=== PATIENT | male | born 1970 | race Caucasian/White ===

== ENCOUNTER 2023-04-27 13:25 | Emergency (ER) | payer MEDICAID, SELFPAY ==
[2023-04-27 13:30] VITALS: BP 138/97; BP 139/91; PULSE 72; RESP 14; TEMP 36.9; O2SAT 96; BMI 32.3
--- NOTE | 2023-04-27 13:53 | ED_ITS ---
HPI - General Adult General Chief complaint: Extremity Injury, Lower Stated complaint: ANKLE INJURY Time Seen by Provider: 04/27/23 13:52 Source: patient Mode of arrival: ambulance Limitations: no limitations History of Present Illness HPI narrative: Should persist emergency department complaining of left foot pain. Patient states he noted increased pain and swelling to his left heel. He walks a lot. He is from [place] and took the train seems to be transient to [place]. He has not taking anything for pain. He denies any injury. He states is not sure if he has a foreign body stuck there. Sometimes he steps on things. He states one time he had cellulitis and he just wanted to make sure that this was not it. Since it had some chills and denies any fever. He denies any pain or cramping. He denies any chest pain, shortness of breath. He denies any nausea, vomiting, diarrhea or constipation. He states he has chronic issues with his [place] where he has poor absorption so he does not take any medications because they don't absorbed well. Related Data Home Medications Medication Instructions Recorded Confirmed clonidine HCl 0.2 mg tablet 0.2 mg PO DAILY 04/27/23 04/27/23 losartan 25 mg tablet 25 mg PO DAILY 04/27/23 04/27/23 metoprolol tartrate 25 mg tablet 25 mg PO DAILY 04/27/23 04/27/23 Allergies Allergy/AdvReac Type Severity Reaction Status Date / Time erythromycin base AdvReac Intermediate Abdominal Verified 04/27/23 13:40 [From Erythrocin] Pain polyethylene glycol AdvReac Intermediate Abdominal Verified 04/27/23 13:40 Pain Review of Systems ROS Status of ROS 10 or more systems reviewed and unremarkable except as noted in history and below [facility] Medical History (Updated 04/27/23 @ 15:19 by Theresa Umanzor MD) Exam Narrative Exam Narrative: Nurses notes and vital signs reviewed and patient is not hypoxic. General: Nontoxic, and in no apparent distress. Skin: Warm, dry, no pallor noted. No Rash Head: Normocephalic, atraumatic. Neck: Supple, non-tender. Eye: Pupils are equal, round and EOMI. No scleral icterus. Ears, Nose, Mouth, and Throat: TM clear, no posterior oropharynx erythema or nasal mucosal hypertrophy, uvula is mid-line Oral mucosa is moist Cardiovascular: Regular Rate and Rhythm without murmur, gallop or rub. Respiratory: No accessory muscle use or respiratory distress. Lungs are clear to auscultation, no wheezing, rales or rhonchi Chest Wall: no tenderness Back: No midline thoracic or lumbar vertebral tenderness. No CVA tenderness Musculoskeletal: Small erythema and edema noted to the left posterior heel. It is localized, there is no fluctuance. No ecchymosis no proximal streaking. No signs of trauma, or infection. DP +2, TP +2, capillary refill is brisk. normal ROM, no calf or popliteal tenderness, no lower extremity edema/swelling GI: Abdomen is soft, non-distended. Normal bowel sounds. No tenderness to palpation. No rebound, guarding, or rigidity noted. Neurological: A&O x4. No cranial nerve dysfunction observed. No truncal ataxia. Moves all extremities. Sensation intact. Psychiatric: Cooperative and interactive. Constitutional Vital Signs, click to edit/add: Last Vital Signs Temp 98.5 F 04/27/23 13:30 Pulse 72 04/27/23 13:30 Resp 14 04/27/23 13:30 BP 138/97 H 04/27/23 13:30 Pulse Ox 96 04/27/23 13:30 O2 Del Method Room Air 04/27/23 13:30 Course Vital Signs Vital signs: Vital Signs Temperature 98.5 F 04/27/23 13:30 Pulse Rate 72 04/27/23 13:30 Respiratory Rate 14 04/27/23 13:30 Blood Pressure 138/97 H 04/27/23 13:30 Pulse Oximetry 96 04/27/23 13:30 Oxygen Delivery Method Room Air 04/27/23 13:30 Temperature 98.5 F 04/27/23 13:30 Pulse Rate 72 04/27/23 13:30 Respiratory Rate 14 04/27/23 13:30 Blood Pressure 138/97 H 04/27/23 13:30 Pulse Oximetry 96 04/27/23 13:30 Oxygen Delivery Method Room Air 04/27/23 13:30 Medical Decision Making MDM Narrative Medical decision making narrative: Patient had a foot x-ray done which is unremarkable. Labs were unremarkable. Patient's history and physical is consistent with a bursitis. All results discussed with patient. Patient is given Solu-Medrol IM and he will take Tylenol as needed for pain. Patient was offered a meal. No additional indication for emergent studies at this time. I answered all questions. Discussed discharge instructions including standard anticipatory guidance and what should prompt a return to the emergency department, including if they get worse are not getting better or develops any new or concerning symptoms. I've given them specific time frame in which to follow-up, and who to follow-up with. The patient demonstrates understanding. Patient is nontoxic and stable for discharge with outpatient follow-up. This note was created with the assistance of a speech recognition program. Although the intention is to generate documents that actually reflects the content of the visit, no guarantees can be provided that every mistake has been identified and corrected by editing. Lab Data Labs: Lab Results 04/27/23 Range/Units 14:20 WBC 3.4 L (4.0-11.0) 10^3/uL RBC 4.72 (4.70-6.10) 10^6/uL Hgb 13.9 L (14.0-18.0) g/dL Hct 40.9 L (42.0-54.0) % MCV 86.7 (80.0-94.0) fL MCH 29.4 (25.9-34.0) pg MCHC 34.0 (29.9-35.2) g/dL RDW 12.4 (11.0-15.0) % Plt Count 148 L (150-450) 10^3/uL MPV 10.5 (9.5-13.5) fL Neut % (Auto) 59.6 (43.0-75.0) % Lymph % (Auto) 25.8 (20.5-60.0) % [place] % (Auto) 11.6 (1.7-12.0) % Eos % (Auto) 2.4 (0.9-7.0) % Baso % (Auto) 0.6 (0.2-2.0) % Neut # (Auto) 2.0 (1.4-6.5) 10^3/uL Lymph # (Auto) 0.9 L (1.2-3.8) 10^3/uL [place] # (Auto) 0.4 (0.3-0.8) 10^3/uL Eos # (Auto) 0.1 (0.0-0.7) 10^3/uL Baso # (Auto) 0.0 (0.0-0.1) 10^3/uL Abs Immat Gran (auto) 0.00 (0.00-0.03) 10^3/uL Imm/Tot Granulo (auto) 0.0 (0.0-0.5) % Sodium 134 L (136-145) mmol/L Potassium 4.0 (3.5-5.1) mmol/L Chloride 100 (98-107) mmol/L Carbon Dioxide 26.5 (21.0-32.0) mmol/L Anion Gap 11.5 BUN 16.0 (7.0-18.0) mg/dL Creatinine 0.89 (0.70-1.30) mg/dL Est GFR ( Amer) >60 (>=60) Est GFR (Non-Af Amer) >60 (>=60) BUN/Creatinine Ratio 18.0 Glucose 94 (74-106) mg/dL Calcium 8.6 (8.5-10.1) mg/dL Discharge Plan Discharge Chief Complaint: Extremity Injury, Lower Clinical Impression: Bursitis due to overuse Patient Disposition: Home, Self-Care Time of Disposition Decision: 15:19 Condition: Good Mode of Transportation: Private Vehicle Prescriptions / Home Meds: No Action metoprolol tartrate 25 mg tablet 25 mg PO DAILY losartan 25 mg tablet 25 mg PO DAILY clonidine HCl 0.2 mg tablet 0.2 mg PO DAILY Instructions: Ankle Bursitis (ED) Stand Alone Forms: Portal Instructions Referrals: RYAN CHAVEZ APRN [Physician] - 1 week
--- NOTE | 2023-04-27 14:14 | XR_ITS ---
The [address] [address] Patient Name: CHARLES MILLS MRN: [id number] date: 1970 Sex: M Assigned Patient Location: ER Current Patient Location: ED.MAIN Accession/Order Number: [id number] Exam Date: 04/27/2023 14:36 Report Date: 04/27/2023 15:05 At the request of: ROSALIE FLOR Procedure: XR foot LT min 3V EXAM: XR foot LT min 3V HISTORY: paion, fall COMPARISON: None. TECHNIQUE: 3 views of the left foot. FINDINGS: Bones: No acute or aggressive appearing bony lesion. Joints: Normal alignment. No significant osteoarthritic change. Soft tissues: Unremarkable. XR/XR foot LT min 3V IMPRESSION: No evidence of fracture. Electronically authenticated by: BRIAN WALKER Date: 04/27/2023 15:05
[2023-04-27 14:40] LABS: Basophils Percent Auto 0.6 % (0.2-2.0); Eosinophils Absolute Auto 0.1 10^3/uL (0.0-0.7); Eosinophils Percent Auto 2.4 % (0.9-7.0); Hematocrit 40.9 % (42.0-54.0); Hemoglobin 13.9 g/dL (14.0-18.0); Lymphocytes Absolute Auto 0.9 10^3/uL (1.2-3.8); Lymphocytes Percent Auto 25.8 % (20.5-60.0); Mean Corpuscular Hemoglobin 29.4 pg (25.9-34.0); Mean Corpuscular Volume 86.7 fL (80.0-94.0); Mean Platelet Volume 10.5 fL (9.5-13.5); Monocytes Absolute Auto 0.4 10^3/uL (0.3-0.8); Monocytes Percent Auto 11.6 % (1.7-12.0); Neutrophils Percent Auto 59.6 % (43.0-75.0); Platelet Count 148 10^3/uL (150-450); Red Blood Count 4.72 10^6/uL (4.70-6.10); Red Cell Distribution Width 12.4 % (11.0-15.0); White Blood Count 3.4 10^3/uL (4.0-11.0)
[2023-04-27 14:49] LABS: Anion Gap 11.5; Calcium 8.6 mg/dL (8.5-10.1); Carbon Dioxide 26.5 mmol/L (21.0-32.0); Chloride 100 mmol/L (98-107); Estimated GFR (African America >60 (>=60); Estimated GFR (Non-African Ame >60 (>=60); Glucose 94 mg/dL (74-106); Sodium 134 mmol/L (136-145)
[2023-04-27] MEDS: METHYLPREDNISOLONE SOD SUCC PF 125 MG/2 ML VIAL IM (15:50)
== END 2023-04-27 16:12 | disposition home or self-care (01) ==
PROVIDERS: Emergency Provider Emergency Medicine
DX: M70.872 Other soft tissue disorders related to use, overuse and pressure, left ankle and foot (principal); Z79.899 Other long term (current) drug therapy
CPT/HCPCS: 36415; 73630; 80048; 85025; 96374; 99285; J2930

== ENCOUNTER 2023-04-30 11:35 | Emergency (ER) | payer MEDICAID, SELFPAY ==
[2023-04-30 11:36] VITALS: BP 135/87; PULSE 70; RESP 16; TEMP 37.2; O2SAT 98; BMI 32.3
--- NOTE | 2023-04-30 12:10 | PC.NURSE ---
Called [facility] with licensed social worker per patient request. pt also requesting to eat -- dr beltrán approved.
--- NOTE | 2023-04-30 12:19 | ED.GENADUL1 ---
HPI - General Adult General Chief complaint: Arrhythmia/Palpitations Time Seen by Provider: 04/30/23 11:45 Source: patient Mode of arrival: ambulance Limitations: no limitations History of Present Illness HPI narrative: 52-year-old male presents for palpitations. He states it happened this morning. He is from [facility] and has been riding trains around the country and it's in this area. He was hanging out at the library and had had a beer already this morning. He felt like his heart was jumping around. He doesn't have a fever and doesn't complain to me of chest pain or shortness of breath. He's requesting to see the oncology social worker and would like some food to eat. Related Data Home Medications Medication Instructions Recorded Confirmed clonidine HCl 0.2 mg tablet 0.2 mg PO DAILY 04/27/23 04/30/23 losartan 25 mg tablet 25 mg PO DAILY 04/27/23 04/30/23 metoprolol tartrate 25 mg tablet 25 mg PO DAILY 04/27/23 04/30/23 Allergies Allergy/AdvReac Type Severity Reaction Status Date / Time erythromycin base AdvReac Intermediate Abdominal Verified 04/30/23 11:36 [From Erythrocin] Pain polyethylene glycol AdvReac Intermediate Abdominal Verified 04/30/23 11:36 Pain Review of Systems ROS Narrative A ten point review of systems is negative except as noted above. [facility] Medical History (Updated 04/30/23 @ 12:18 by Homero Amaral MD) Exam Narrative Exam Narrative: Nurses note and vital signs reviewed and patient is not hypoxic. General: The patient appears well and in no apparent distress. Patient is resting comfortably on cart. Skin: Warm, dry, no pallor noted. There is no rash noted. Head: Normocephalic, atraumatic Eye: Normal conjunctiva, no drainage Ears, Nose, Mouth, and Throat: oral mucosa is moist. Nares patent. Cardiovascular: Regular Rate and Rhythm Respiratory: Patient is in no distress, no accessory muscle use, lungs are clear to auscultation, no wheezing, rales or rhonchi Back: non-tender GI: nontender Musculoskeletal: The patient has no evidence of calf tenderness, no pitting edema, symmetrical pulses noted bilaterally Neurological: A&O , normal speech Psychiatric: Cooperative Constitutional Vital Signs, click to edit/add: Last Vital Signs Temp 99 F 04/30/23 11:36 Pulse 70 04/30/23 11:36 Resp 16 04/30/23 11:36 BP 135/87 04/30/23 11:36 Pulse Ox 98 04/30/23 11:36 O2 Del Method Room Air 04/30/23 11:36 Course Vital Signs Vital signs: Vital Signs Temperature 99 F 04/30/23 11:36 Pulse Rate 70 04/30/23 11:36 Respiratory Rate 16 04/30/23 11:36 Blood Pressure 135/87 04/30/23 11:36 Pulse Oximetry 98 04/30/23 11:36 Oxygen Delivery Method Room Air 04/30/23 11:36 Temperature 99 F 04/30/23 11:36 Pulse Rate 70 04/30/23 11:36 Respiratory Rate 16 04/30/23 11:36 Blood Pressure 135/87 04/30/23 11:36 Pulse Oximetry 98 04/30/23 11:36 Oxygen Delivery Method Room Air 04/30/23 11:36 Medical Decision Making MDM Narrative Medical decision making narrative: he's had no dysrhythmia on the monitor. technical services representative is seeing the patient. There is no indication for a medical workup. Differential Diagnosis Differential Diagnosis: atrial fibrillation, atrial flutter, PVCs, PACs ECG Data Attestation: I personally reviewed and interpreted this ECG as follows: (normal sinus rhythm with a rate of 66. No PVCs.) Discharge Plan Discharge Chief Complaint: Arrhythmia/Palpitations Clinical Impression: Poor social situation, Palpitations Patient Disposition: Home, Self-Care Time of Disposition Decision: 12:18 Condition: Good Mode of Transportation: Other Prescriptions / Home Meds: No Action metoprolol tartrate 25 mg tablet 25 mg PO DAILY losartan 25 mg tablet 25 mg PO DAILY clonidine HCl 0.2 mg tablet 0.2 mg PO DAILY Instructions: Heart Palpitations (ED) Stand Alone Forms: Portal Instructions Referrals: Physician,Non-Staff, MD [Primary Care Provider] - 1 week
--- NOTE | 2023-04-30 13:00 | ECG_ITS ---
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
== END 2023-04-30 13:08 | disposition home or self-care (01) ==
PROVIDERS: Emergency Provider Emergency Medicine
DX: R00.2 Palpitations (principal); Z79.899 Other long term (current) drug therapy
CPT/HCPCS: 93005; 99283

== ENCOUNTER 2023-05-01 16:20 | Emergency (ER) | payer MEDICAID, SELFPAY ==
[2023-05-01] VITALS (8 sets, daily range): BP systolic 92–108; BP diastolic 49–70; PULSE 64–80; RESP 16–17; TEMP 36.7; O2SAT 96–98; BMI 32.3
--- NOTE | 2023-05-01 16:30 | ECG_ITS ---
The [facility] Test Date: 2023-05-01 Pat Name: CHARLES MILLS Department: Room: - Gender: Male Supervisor Telephone Information: : 1970 Requested By: [id number] Order Number: [id number] Reading MD: HEATHER ALVES Measurements Intervals [place] Rate: 79 P: 36 [place]: 134 QRS: 22 QRSD: 100 T: 8 QT: 344 QTc: 378 Interpretive Statements 1100 Sinus rhythm 9110 normal ECG Compared to ECG 04/30/2023 11:39:27 No significant changes Electronically Signed On 05-02-2023 7:13:52 EDT by HEATHER ALVES
--- NOTE | 2023-05-01 16:32 | ED.GENADUL1 ---
HPI - General Adult General Chief complaint: Arrhythmia/Palpitations Stated complaint: PALPITATIONS Time Seen by Provider: 05/01/23 16:29 Source: patient Mode of arrival: ambulance Limitations: no limitations History of Present Illness HPI narrative: Patient is a 52-year-old male who is presenting by EMS secondary to palpitations. It is reported patient is homeless. EMS states he has seen patient 5 days in a row. Patient came to the Emergency Room approximately 4-5 days ago for evaluation as well. Patient has history of renal cysts, thoracic aneurysm. EKG, vital signs blood sugar were normal for EMS today. Patient feels like his heart racing intermittently. He currently has no headache. His no chest pain or shortness of breath. No abdominal pain, nausea or vomiting. Patient states he is homeless, and he rides trains. Patient says [place], and was going home today. [facility] He is here visiting family and friends. Patient is not delusional, not hallucinating. Patient's alert and oriented ?3, GCS of 15. Patient does like to talk and tells stories, the patient is seems appropriate. Patient appears a functional decision-making capacity for his own decisions today. . All systems are negative except as noted/marked. All systems reviewed and otherwise negative. . Nurses note and vital signs reviewed and patient is not hypoxic. General: The patient appears well and in no apparent distress. Patient is resting comfortably on cart. Patient is not toxic, lethargic, or listless Skin: Warm, dry, no pallor noted. There is no rash noted. No petechiae, purpura. Head: Normocephalic, atraumatic Eye: Normal conjunctiva, no drainage, EOMI. PERRL Ears, Nose, Mouth, and Throat: oral mucosa is moist. Nares patent. Mouth without vesicles. Cardiovascular: Regular Rate and Rhythm, no murmur, gallop, rub Respiratory: Patient is in no distress, no accessory muscle use, lungs are clear to auscultation, no wheezing, rales or rhonchi Back: non-tender, no CVA tenderness bilaterally to percussion. No CT LS midline pain GI: soft, no tenderness to palpation, no masses appreciated. No rebound, guarding, or rigidity noted. No flank pain bilateral, No distention Musculoskeletal: Patient has full range of motion of all of the extremities, no motor, sensory, or focal neurological deficits Neurological: A&O x3, normal speech Psychiatric: Cooperative Related Data Home Medications Medication Instructions Recorded Confirmed clonidine HCl 0.2 mg tablet 0.2 mg PO DAILY 04/27/23 05/01/23 losartan 25 mg tablet 25 mg PO DAILY 04/27/23 05/01/23 metoprolol tartrate 25 mg tablet 25 mg PO DAILY 04/27/23 05/01/23 Allergies Allergy/AdvReac Type Severity Reaction Status Date / Time erythromycin base AdvReac Intermediate Abdominal Verified 05/01/23 16:23 [From Erythrocin] Pain polyethylene glycol AdvReac Intermediate Abdominal Verified 05/01/23 16:23 [facility] Medical History (Updated 05/01/23 @ 18:28 by Yang Galvan MD) Social History Smoking status: Former smoker Exam Constitutional Vital Signs, click to edit/add: Last Vital Signs Temp 98.1 F 05/01/23 16:24 Pulse 64 05/01/23 18:00 Resp 17 05/01/23 18:00 BP 108/70 05/01/23 18:37 Pulse Ox 96 05/01/23 18:00 O2 Del Method Room Air 05/01/23 16:59 Course Vital Signs Vital signs: Vital Signs Temperature 98.1 F 05/01/23 16:24 Pulse Rate 80 05/01/23 16:24 Respiratory Rate 16 05/01/23 16:24 Blood Pressure 92/61 05/01/23 16:24 Pulse Oximetry 96 05/01/23 16:24 Oxygen Delivery Method Room Air 05/01/23 16:24 Temperature 98.1 F 05/01/23 16:24 Pulse Rate 64 05/01/23 18:00 Respiratory Rate 17 05/01/23 18:00 Blood Pressure 108/70 05/01/23 18:37 Pulse Oximetry 96 05/01/23 18:00 Oxygen Delivery Method Room Air 05/01/23 16:59 Medical Decision Making MDM Narrative Medical decision making narrative: Patient feels better after IV fluids. Patient's been eating and drinking without difficulty. No indication for admission. Patient has a safe place to go, patient can safely be discharged. Patient was recommended to follow up with his PCP when he returns back to [place] for additional outpatient cardiac testing if indicated. Medical Records Medical records reviewed: Yes I reviewed the patient's medical records Medical records narrative: Chart reviewed from visit earlier this week. Lab Data Lab results reviewed: Yes I reviewed the patient's lab results Labs: Lab Results 05/01/23 05/01/23 Range/Units 16:30 16:55 WBC 3.3 L (4.0-11.0) 10^3/uL RBC 4.40 L (4.70-6.10) 10^6/uL Hgb 12.9 L (14.0-18.0) g/dL Hct 38.4 L (42.0-54.0) % MCV 87.3 (80.0-94.0) fL MCH 29.3 (25.9-34.0) pg MCHC 33.6 (29.9-35.2) g/dL RDW 12.1 (11.0-15.0) % Plt Count 148 L (150-450) 10^3/uL MPV 10.5 (9.5-13.5) fL Neut % (Auto) 57.0 (43.0-75.0) % Lymph % (Auto) 31.4 (20.5-60.0) % [place] % (Auto) 9.2 (1.7-12.0) % Eos % (Auto) 1.5 (0.9-7.0) % Baso % (Auto) 0.6 (0.2-2.0) % Neut # (Auto) 1.9 (1.4-6.5) 10^3/uL Lymph # (Auto) 1.0 L (1.2-3.8) 10^3/uL [place] # (Auto) 0.3 (0.3-0.8) 10^3/uL Eos # (Auto) 0.1 (0.0-0.7) 10^3/uL Baso # (Auto) 0.0 (0.0-0.1) 10^3/uL Abs Immat Gran (auto) 0.01 (0.00-0.03) 10^3/uL Imm/Tot Granulo (auto) 0.3 (0.0-0.5) % Sodium 140 (136-145) mmol/L Potassium 3.7 (3.5-5.1) mmol/L Chloride 105 (98-107) mmol/L Carbon Dioxide 21.4 (21.0-32.0) mmol/L Anion Gap 17.3 BUN 12.0 (7.0-18.0) mg/dL Creatinine 0.93 (0.70-1.30) mg/dL Est GFR ( Amer) >60 (>=60) Est GFR (Non-Af Amer) >60 (>=60) BUN/Creatinine Ratio 12.9 Glucose 106 (74-106) mg/dL Calcium 8.1 L (8.5-10.1) mg/dL Total Bilirubin 0.3 (0.2-1.0) mg/dL AST 19 (15-37) U/L ALT 39 (16-63) U/L Alkaline Phosphatase 55 (46-116) U/L Total Creatine Kinase 99 (39-308) U/L Troponin I High Sens 5.0 (4.0-76.1) pg/mL Total Protein 6.9 (6.4-8.2) g/dL Albumin 3.4 (3.4-5.0) g/dL Globulin 3.5 g/dL Albumin/Globulin Ratio 1.0 SARS-CoV-2 (PCR) Negative (NEGATIVE) ECG Data Attestation: I personally reviewed and interpreted this ECG as follows: Interpretation: [facility]hospital [facility]. [id number].Normalaxisdeviation.NoacuteSTelevation,noacuteectopy.[id number].ReviewedbyDr.Pay. EKG interpretation. Normal sinus rhythm at 79 beats a minute. Normal axis deviation. No acute ST elevation, no acute ectopy. QTC of 378. Discharge Plan Discharge Chief Complaint: Arrhythmia/Palpitations Clinical Impression: Palpitations, Dehydration, mild Patient Disposition: Home, Self-Care Condition: Good Prescriptions / Home Meds: No Action metoprolol tartrate 25 mg tablet 25 mg PO DAILY losartan 25 mg tablet 25 mg PO DAILY clonidine HCl 0.2 mg tablet 0.2 mg PO DAILY Instructions: Heart Palpitations (ED), Dehydration (ED) Additional Instructions: Increase fluids. Establish PCP if you will be here for [facility] or [facility]. Stand Alone Forms: Portal Instructions Referrals: Scar Gan MD [Physician] - 1 week Physician,Non-Staff, [Primary Care Provider] - 1 week Discharge Date/Time: 05/01/23 18:41
[2023-05-01 16:40] LABS: Basophils Percent Auto 0.6 % (0.2-2.0); Eosinophils Absolute Auto 0.1 10^3/uL (0.0-0.7); Eosinophils Percent Auto 1.5 % (0.9-7.0); Hematocrit 38.4 % (42.0-54.0); Hemoglobin 12.9 g/dL (14.0-18.0); Immature Granulocytes Abs Auto 0.01 10^3/uL (0.00-0.03); Immature Granulocytes Pct Auto 0.3 % (0.0-0.5); Lymphocytes Percent Auto 31.4 % (20.5-60.0); Mean Corpuscular HGB Conc 33.6 g/dL (29.9-35.2); Mean Corpuscular Hemoglobin 29.3 pg (25.9-34.0); Mean Corpuscular Volume 87.3 fL (80.0-94.0); Mean Platelet Volume 10.5 fL (9.5-13.5); Monocytes Absolute Auto 0.3 10^3/uL (0.3-0.8); Monocytes Percent Auto 9.2 % (1.7-12.0); Neutrophils Absolute Auto 1.9 10^3/uL (1.4-6.5); Platelet Count 148 10^3/uL (150-450); Red Cell Distribution Width 12.1 % (11.0-15.0); White Blood Count 3.3 10^3/uL (4.0-11.0)
[2023-05-01] MEDS: 0.9 % SODIUM CHLORIDE 1,000 ML 1000 ML IV (16:54)
[2023-05-01 16:55] LABS: Alanine Aminotransferase 39 U/L (16-63); Albumin Level 3.4 g/dL (3.4-5.0); Alkaline Phosphatase 55 U/L (46-116); Anion Gap 17.3; Aspartate Amino Transferase 19 U/L (15-37); BUN Creatinine Ratio 12.9; Bilirubin Total 0.3 mg/dL (0.2-1.0); Calcium 8.1 mg/dL (8.5-10.1); Carbon Dioxide 21.4 mmol/L (21.0-32.0); Chloride 105 mmol/L (98-107); Estimated GFR (African America >60 (>=60); Estimated GFR (Non-African Ame >60 (>=60); Globulin 3.5 g/dL; Glucose 106 mg/dL (74-106); Potassium 3.7 mmol/L (3.5-5.1); Sodium 140 mmol/L (136-145); Total Protein 6.9 g/dL (6.4-8.2)
[2023-05-01 16:57] LABS: Creatine Kinase 99 U/L (39-308)
[2023-05-01 17:39] LABS: SARS-CoV-2 Ag NEGATIVE (NEGATIVE)
[2023-05-03 15:52] LABS: SARS-CoV-2 NAA NOT DETECTED (NOT DETECTE)
== END 2023-05-01 18:41 | disposition home or self-care (01) ==
PROVIDERS: Emergency Provider Emergency Medicine
DX: E86.0 Dehydration (principal); R00.2 Palpitations; Z59.00 Homelessness unspecified; Z87.891 Personal history of nicotine dependence; Z79.899 Other long term (current) drug therapy; Z20.822 Contact with and (suspected) exposure to COVID-19
CPT/HCPCS: 36415; 80053; 82550; 84484; 85025; 87635; 93005; 96360; 99285

== ENCOUNTER 2024-07-23 16:24 | Emergency (ER) | payer MEDICAID, SELFPAY ==
[2024-07-23 16:32] VITALS: BP 141/97; PULSE 63; TEMP 37.2; O2SAT 99; BMI 33.9
--- NOTE | 2024-07-23 16:35 | ECG_ITS ---
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
--- NOTE | 2024-07-23 17:14 | ED_ITS ---
HPI HPI - General Adult General Chief complaint: Back Pain/Injury Stated complaint: DIZINESS/ GENERAL WEAKNESS Time Seen by Provider: 07/23/24 16:52 Source: patient Mode of arrival: walk-in Limitations: no limitations History of Present Illness HPI narrative: This 54-year-old male is here for somewhat nonspecific complaints. He states that sometimes when he stands up he gets lightheaded. He does not have vertigo. He does not have palpitations or syncopal episodes. He also says occasionally gets a sharp pain in his mid thoracic area. This gentleman alternates between [facility] in this community. He goes to the [facility] and other institutions in the [facility]. He states that he is known to have renal artery stenosis and has had this for several years and may be scheduled for balloon angioplasty at a facility in [place]. He does not have any tearing or ripping or persistent pain in his back at this stage. Based he is also out of his medications and believes he should not run out of his meds. He did have his last metoprolol today but he ran out of his losartan several days ago. He also was low on his clonidine. He has been to this institution before and have read his medical records. He is somewhat nomadic in character to say the least he is got a backpack and below longing and states he is got a stay at a friend's house tonight. He denies any homelessness situation at this time. He has not had cough cold shortness of breath or other viral symptomatology at this time. Related Data Home Medications ?Medication ?Instructions ?Recorded ?Confirmed clonidine HCl 0.2 mg tablet 0.2 mg PO DAILY 04/27/23 05/01/23 losartan 25 mg tablet 25 mg PO DAILY 04/27/23 05/01/23 metoprolol tartrate 25 mg tablet 25 mg PO DAILY 04/27/23 05/01/23 Allergies Allergy/AdvReac Type Severity Reaction Status Date / Time erythromycin base (From AdvReac Intermediate Abdominal Verified 07/23/24 16:37 Erythrocin) Pain polyethylene glycol AdvReac Intermediate Abdominal Verified 07/23/24 16:37 Pain lorazepam (From Ativan) AdvReac Mild Abdominal Verified 07/23/24 16:37 Pain Opioid HPI Opioid Management Most Recent Opioid Data: No Data to Display [facility] Medical History (Updated 07/23/24 @ 17:39 by Catalino Sky MD) Thoracic aneurysm without mention of rupture ?I71.20 - Thoracic aortic aneurysm, without rupture, unspecified (ICD-10) Renal cyst ?N28.1 - Cyst of kidney, acquired (ICD-10) Renal artery stenosis ?I70.1 - Atherosclerosis of renal artery (ICD-10) Social History Smoking status: Former smoker Little interest or pleasure in doing things: not at all Feeling down, depressed, or hopeless: not at all Exam Narrative Exam Narrative: Awake alert when x 3 hydration status appears normal. Neck is soft and supple. When we take him from a lying position to a standing position his heart rate goes from 64-74. He does not have any symptoms when I was discussing this with him. His back and thorax appear atraumatic. He does not have any evidence of shingles or other dermatological disorders causing pain. His breath sounds are normal bilaterally with no wheeze rales or rhonchi. Heart rate and rhythm are normal with no murmur. He does not have a active abdominal pain at this time but he says he scheduled for colonoscopy. Extremities are normal. Get good pulses. No cyanosis. No peripheral edema. Constitutional Vital Signs, click to edit/add: Last Vital Signs Temp 98.9 F 07/23/24 16:32 Pulse 63 07/23/24 16:32 Resp 16 07/23/24 16:32 BP 141/97 H 07/23/24 16:32 Pulse Ox 99 07/23/24 16:32 O2 Del Method Room Air 07/23/24 16:32 Course Vital Signs Vital signs: Vital Signs Temperature 98.9 F 07/23/24 16:32 Pulse Rate 63 07/23/24 16:32 Respiratory Rate 16 07/23/24 16:32 Blood Pressure 141/97 H 07/23/24 16:32 Pulse Oximetry 99 07/23/24 16:32 Oxygen Delivery Method Room Air 07/23/24 16:32 Temperature 98.9 F 07/23/24 16:32 Pulse Rate 63 07/23/24 16:32 Respiratory Rate 16 07/23/24 16:32 Blood Pressure 141/97 H 07/23/24 16:32 Pulse Oximetry 99 07/23/24 16:32 Oxygen Delivery Method Room Air 07/23/24 16:32 Medical Decision Making MDM Narrative Medical decision making narrative: This is a 54-year-old male who seemingly gets health care at a number different facilities. He has random train of thought. He is not suicidal or homicidal. He does have safe accommodations this evening. He is basically here for refill of his medications and I am glad to do that for at least a week or so. He is requesting a chest x-ray. He says he has had a recent CT scan that shows that his aneurysm is not enlarging. He does not have any symptoms today or findings on exam to suggest any deterioration of that vascular irregularity. Chest x-ray interpretation by myself shows no obvious infiltrate and no widening of his mediastinum. I will give him a refill of his medications. There is does not appear to be any emergency medical condition today Discharge Plan Discharge Chief Complaint: Back Pain/Injury Clinical Impression: Medication refill Patient Disposition: Home, Self-Care Time of Disposition Decision: 17:38 Prescriptions / Home Meds: No Action metoprolol tartrate 25 mg tablet 25 mg PO DAILY losartan 25 mg tablet 25 mg PO DAILY clonidine HCl 0.2 mg tablet 0.2 mg PO DAILY Print Language: Occitan Additional Instructions: Refill for meds for 10 days. Please follow-up with your regular practitioners for ongoing evaluation and treatment Referrals: Physician,Non-Staff, MD [Primary Care Provider] - 1 week
--- NOTE | 2024-07-23 17:18 | XR_ITS ---
[facility] [id number] Patient Name: CHARLES MILLS MRN: [id number] date: 1970 Sex: M Assigned Patient Location: ER Current Patient Location: Accession/Order Number: [id number] Exam Date: 07/23/2024 17:30 Report Date: 07/23/2024 19:23 At the request of: KELLY MENEZES Procedure: XR chest 1V EXAM: XR chest 1V , 07/23/2024 HISTORY: Back pain COMPARISON: Previous x-ray from 07/04/2024 TECHNIQUE: X-ray of the chest, portable upright AP view. FINDINGS: Cardiac silhouette within normal limits. Mild prominence of the thoracic aorta. The lungs and costophrenic angles are clear. No acute osseous findings. No significant interval change. XR/XR chest 1V IMPRESSION: No acute cardiopulmonary findings or interval change. Electronically authenticated by: ALBIN AGUIRRE Date: 07/23/2024 19:23
[2024-07-23 18:09] VITALS: BP 165/110
[2024-07-23] MEDS: CLONIDINE HCL 0.1 MG TABLET 0.2 MG PO (18:09)
[2024-07-23] MEDS: LOSARTAN POTASSIUM 25 MG TABLET PO (18:09)
[2024-07-23] MEDS: METOPROLOL TARTRATE 50 MG TABLET PO (18:09)
[2024-07-23 18:15] VITALS: BP 160/100; PULSE 76; O2SAT 97
== END 2024-07-23 18:15 | disposition home or self-care (01) ==
PROVIDERS: Emergency Provider Emergency Medicine Emergency Medical Services
DX: Z76.0 Encounter for issue of repeat prescription (principal); I70.1 Atherosclerosis of renal artery; Z87.891 Personal history of nicotine dependence; M54.6 Pain in thoracic spine; R42 Dizziness and giddiness
CPT/HCPCS: 71045; 93005; 99284

== ENCOUNTER 2024-08-02 06:57 | Emergency (ER) | payer MEDICAID, SELFPAY ==
[2024-08-02 06:59] VITALS: BP 181/104; PULSE 64; TEMP 36.8; O2SAT 100; BMI 33.9
--- OUTSIDE RECORDS SUMMARY | 2024-08-02 07:16 | XMS_ITS | CCD ---
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 Name Role Phone Dakotah, Gracia Unavailable Unavailable PROVIDER, UNKNOWN Unavailable Unavailable No, PCP Unavailable Unavailable No Family, Physician Primary Care Unavailable BRANDEN MORAES Attending Unavailable No Family, Physician Primary Care Unavailable HOWARD AYON Attending Unavailable Unavailable Primary Care Provider Unavailabl e Required, No Pcp Unavailable Unavailable Shawn Flores Unavailable Stacia Bloom Unavailable [phone] Lily Wolf Unavailable Unavailable Dejah Lepe Unavailable Unavailable Keith Arechiga Unavailable Unavailable Rashaun Delgadillo Unavailable Unavailable Meagan Oviedo Unavailable Unavailable Unknown, Pcp Unavailable Unavailable Bal Sahu Unavailable Andre Coats Unavailable Unknown, Referring Provider Unavailable Unav ailable Daniela Church Unavailable Wally Lawton Unavailable PCP, Other Primary Care Provider Performer Unavailable Unavailable Dana Sol Unavailable Sandy vailable Josh Ennis Unavailable Hermes Sexton Unavailable Unavail able Bal Lomax Unavailable Unavailable Viral Amado Unavailable Terry Gracía Unavailable Unavailable Bal Muller Unavailable Unavailable Viral Amado Unavailable Eirc Barton Unavailable Unavailable Guy Radu Unavailable Unavailable Unavailable Primary Care Provider Unavailabl WILL Maharaj Referring Unavailable Irving Wills Unavailable Unavailable Elizabet Morales Unavailable Liam So Unavailable Charly Oseguera Unavailable Unavailable Nessa Messina Unavailable [phone] Malou Lomax Unavailable Amanda Choudhary Unavailable Unavailable Cierra Gimenez Unavailable [phone] Lars Grupo Unavailable Unavailable Meagan Baugh Unavailable Unavailable Elgin Morales Unavailable Noel Adler Unavailable Klaudia Mosqueda Unavailable Unavailable Alaina Maciel Unavailable Jacob De La Cruz Unavailable AA NO PCP, NO PCP Primary Care Unavailable MAE MOFFETT Admitting Unavailable ZUHAIR MAE Attending Unavailable ANDVASILE CONNORSIN Admitting Unavailable ANDCHARLY CONNORS Attending Unavailable AA NO PCP, NO PCP Primary Care Unavailable AA NO PCP, NO PCP Primary Care Unavailable ERICA DOMINIQUE Admitting Unavailable ERICA DOMINIQUE Attending Unavailable Latha Messina Unavailable Unavailable Nubia Young Unavailable Unavailable Max Delatorre Unavailable Unavailable Josh Ortega Unavailable Elgin Lambert Unavailable Unavailable Viral Amado Primary Care Provider Performer Unavailable Unavailable Triston Orozco Unavailable Lily Carvajal Unavailable Nessa Kelly Unavailable [phone] Cheo Simeon Unavailable Unavailable Unavailable Unavailable Unavailable Viral Amado DO Primary Care Provider Ignacio Wells MD, Thalia Gresham Unavailable NADIRA HAZEL MD Attending Unavailable VIRAL AMADO Primary Care Unavailable PCP, Other Primary Care Physician [phone] ANEUDY, VIRAL S Primary Care Unavailable Free, Text Entry Unavailable Unavailable Daniel Brizuela Unavailable Unavail able Pending, Provider Primary Care Unavailable Triston Orozco Attending Unavailab le Unavailable Primary Care Provider UnavailSUSU Barry Attending Unavailable LILA VERA Attending UnavailLEONIDES Winkler Attending Unavailable KENN RODRIGUEZ Attending Unavailable LILY MERCADO Attending Unavailable MATTY CLEMENTS Attending Unavailable TO, ROBINA Kline Attending Unavailable TO, ROBINA Kline Attending Unavailable NON STAFF Primary Care Provider Unavailsandy e DO Severino Singh Emergency Provider VIOLET Shaw Emergency Provider KAY DESOUZA Attending Unavailable PCP, OTHER Primary Care Unavailable ANNE INMAN Attending Unavailable PCP, OTHER Primary Care Unavailable ANEUDY, VIRAL S Primary Care Unavailable LIAM PHAM Attending Unavailable ANEUDY, VIRAL S Primary Care Unavailable ANEUDY, VIRAL S Primary Care Unavailable Unavailable Primary Care Provider UnavailCARLOS Shine Attending Unavailable ANEUDY, VIRAL S Primary Care Unavailable Reyes, [place] Unavailable Unavailable PROVIDER, UNKNOWN Admitting Unavailable RILEY CRAWFORD Attending Unavailable TYREE MACKENZIE Unavailable Neil Pete Unavailable Pending, Provider Primary Care Unavailable REYES, STEFANIE Attending Unavailable ANEUDY, VIRAL S Primary Care Unavailable AndDr. Neil aquino Attending Unavaila ble Pending, Provider Primary Care Unavailable Dr. Tyree Mackenzie Attending Unav ailable Pending, Provider Primary Care Unavailable Kristen Bowman MD Primary Care Provider [phone] Viral Amado DO S Unavailable Yang VALENCIA Primary Care Physician [phone] Capo Monzon Attending Unavailable DO Gustavo Mcclelland Emergency Provider NON STAFF Primary Care Provider UnavailLYNNETTE Wisdom Emergency Provider Flo, MD Jaylin R Emergency Provider AGUSTINA SEGAL Attending Unavailable BRENNA HOROWITZ Attending Unavailable NO PCP, NO PCP Primary Care Unavailable HECTOR NGUYEN Attending Unavailable Brody Montez Admitting Unavailable Brody Montez Attending Unavailable NON STAFF Primary Care Unavailable Gustavo Mcclelland Attending Unavailable NON STAFF Primary Care Unavailable Gustavo Mcclelland Admitting Unavailable NON STAFF Primary Care Unavailable Jaylin Rossi Admitting Unavailable Jaylin Rossi Attending Unavailable Gustavo Mcclelland Admitting Unavailable Gustavo Mcclelland Attending Unavailable NON STAFF Primary Care Unavailable Tima Edwards Attending UnavailNeil Downey Attending Unavailable Capo Monzon Attending Unavailable Neil Alexander Attending Unavailable Tima Edwards Attending Unavaila Capo English Attending Unavailable Unavailable Unavailable Unavailable Allergies Allergy Classification Reported Allergen(s) Allergy Type Date of Onset Reaction(s) Facility Aspirin (6 sources) Aspirin; Translations: [Aspirin TABS] Drug Allergy [facility] Corporate Work Phone: chocolate allergenic extract (3 sources) chocolate allergenic extract Drug Allergy 018 Nausea And Vomiting [facility] Macrolides (antibiotic) (20 sources) Erythromycin; Translations: [Erythromycin TABS] Drug Allergy 014 Nausea And Vomiting, Itching [facility] POLYETHYLENE GLYCOL 3350 (10 sources) POLYETHYLENE GLYCOL 3350; Translations: [polyethylene glycol 3350] Drug Allergy Gatrointestinal upset [facility] [place] [address] Work Phone: Polyethylene Glycols (6 sources) Polyethylene Glycols; Translations: [polyethylene glycol] Drug Allergy Abdominal Pain [facility] Quinolones (antibiotic) (17 sources) Ciprofloxacin Drug Allergy Unknown [facility] Sulfonamides (antibiotic) (3 sources) Sulfonamides (Antibiotic) Drug Allergy 014 Nausea And Vomiting [facility] Unclassified (7 sources) polyethylglycol causes Severe Abdominal Pain. Status:Active.; Translations: [polyethylglycol] Drug allergy (disorder) Abdominal Pain [facility] Unclassified (20 sources) caffine Other [facility] Comment on above: caffine (16 sources) chocolate allergenic extract; Translations: [CHOCOLATE] Drug Allergy 018 Nausea And Vomiting, GI Upset, Vomiting [place] (20 sources) Erythromycin; Translations: [erythromycin base] Drug Allergy Nausea And Vomiting, Itching [place] (7 sources) Sulfonamides (Antibiotic); Translations: [SULFA ANTIBIOTICS] Propensity to adverse reactions to drug Nausea And Vomiting [place] (11 sources) Aspirin; Translations: [Aspirin TABS] Drug Allergy [facility] [address] [facility] Work Phone: (20 sources) Erythromycin; Translations: [Erythromycin TABS] Drug Allergy Gatrointestinal upset [facility] [address] Work Phone: (20 sources) POLYETHYLENE GLYCOL 3350; Translations: [polyethylene glycol 3350] Drug Allergy 022 Gatrointestinal upset, Nausea [facility] (18 sources) Polyethylene Glycols; Translations: [polyethylene glycol] Drug Allergy Abdominal Pain [facility] (20 sources) Ciprofloxacin Drug Allergy Unknown [facility] (1 source) POLYETHYLENE GLYCOL 3350 / Potassium Chloride / Sodium Bicarbonate / Sodium Chloride / sodium sulfate Drug Allergy [facility] Repository (2 sources) Polyethylene Glycols; Translations: [POLYETHYLENE GLYCOL] Drug Allergy 021 [facility] Repository (20 sources) Caffeine; Translations: [Caffeine] Drug Allergy 020 Rash [facility] (8 sources) amLODIPine; Translations: [AMLODIPINE] Drug Allergy 021 Swelling [facility] Work Phone: (10 sources) Amoxicillin; Translations: [AMOXICILLIN] Drug Allergy 012 GI Upset [facility] (7 sources) Chocolate; Translations: [CHOCOLATE FLAVOR] Drug Allergy GI Upset [facility] (9 sources) chocolate allergenic extract; Translations: [COCOA] Drug Allergy 06-03-2 018 GI Upset, Rash, Vomiting [facility] (8 sources) Ciprofloxacin; Translations: [CIPROFLOXACIN] Drug Allergy Other: See Comments [facility] (9 sources) diazePAM; Translations: [DIAZEPAM] Drug Allergy Unknown [facility] (10 sources) fentaNYL; Translations: [FENTANYL] Drug Allergy Mental Status Change [facility] (9 sources) Lisinopril; Translations: [LISINOPRIL] Drug Allergy Cough [facility] (16 sources) LORazepam; Translations: [LORAZEPAM] Drug Allergy GI Upset, Illness (finding) [facility] (7 sources) Seasonal allergy; Translations: [SEASONAL ALLERGIES] Allergy to substance GI Upset [facility] (7 sources) Serotonin; Translations: [SEROTONIN HCL] Drug Allergy Mental Status Change [facility] (9 sources) sulfaSALAzine; Translations: [SULFASALAZINE] Drug Allergy GI Upset [facility] (12 sources) Sulfonamides (Antibiotic); Translations: [SULFA (SULFONAMIDE ANTIBIOTICS)] Drug Allergy GI Upset, Nausea And Vomiting [facility] (3 sources) Azithromycin; Translations: [AZITHROMYCIN] Drug Allergy [facility] Work Phone: (1 source) Chocolate Propensity to adverse reactions to drug Vomiting [facility] (1 source) chocolate allergenic extract Drug Allergy Vomiting, Rash [facility] (1 source) Diazepam Propensity to adverse reactions to drug [facility] (1 source) Lisinopril Propensity to adverse reactions to drug Cough [facility] (1 source) Lorazepam Propensity to adverse reactions to drug [facility] (1 source) polyethylene glycol 300 Drug Allergy Agitation [facility] Work Phone: (2 sources) Serotonin; Translations: [SEROTONIN] Drug Allergy Confusion [facility] (2 sources) Serotonin Reuptake Inhibitors (Ssris); Translations: [SEROTONIN REUPTAKE INHIBITORS] Propensity to adverse reactions to drug [facility] (1 source) Sulfasalazine Propensity to adverse reactions to drug [facility] (2 sources) Kdc:Benzyl Alcohol+Lorazepam+ Polyethylene Glycol+Propylene Glycol; Translations: [KDC:BENZYL ALCOHOL+LORAZEPAM+ POLYETHYLENE GLYCOL+PROPYLENE GLYCOL] Propensity to adverse reactions to drug Other [facility] (2 sources) Seasonal Ic; Translations: [SEASONAL IC] Propensity to adverse reactions to drug Upset Stomach [facility] (5 sources) LORazepam; Translations: [Ativan] Drug Allergy Unknown [facility] (1 source) Morphine; Translations: [MORPHINE] Drug Allergy 017 [facility] (1 source) LORazepam Drug Allergy [facility] (1 source) Polyethylene Glycols Drug Allergy [facility] Repository NEGATED: Highlighted row has been ruled out!Latex (15 sources) natural latex rubber; Translations: [LATEX, NATURAL RUBBER] Substance Allergy [facility] NEGATED: Highlighted row has been ruled out!Unclassified (20 sources) No IV Contrast Allergy.; Translations: [IV Dye, Iodine Containing] Drug allergy (disorder) [facility] NEGATED: Highlighted row has been ruled out!Unclassified (7 sources) IV Contrast Allergy has not been assessed.; Translations: [IV Dye, Iodine Containing] Drug allergy (disorder) S NEGATED: Highlighted row has been ruled out! (5 sources) natural latex rubber; Translations: [LATEX, NATURAL RUBBER] Drug allergy (disorder) [facility] NEGATED: Highlighted row has been ruled out! (13 sources) natural latex rubber; Translations: [LATEX, NATURAL RUBBER] Drug allergy (disorder) [facility] Medications Current Medications Medication Drug Class(es) Dates Sig (Normalized) Sig (Original) acetaminophen 325 mg oral tablet (3 sources) Start: 02-05-2021 take 2 tablets by mouth every six hours acetaminophen 325 mg oral tablet ; 2 tab(s) orally every 6 hours as needed for pain Quantity: 60 Refills: 0 Ordered: 05-Feb-2021 Keith Arechiga Start: 05-Feb-2021 Generic Substitution Allowed Comments: This product contains acetaminophen. Do not use with any other product containing acetaminophen to prevent possible liver damage. Start: 01-22-2021 acetaminophen (TYLENOL) 500 MG tablet Take 1,000 mg by mouth. 0 01/22/2021 Active Comment on above: This product contain s acetaminophen. Do not use with any other product containing acetaminophen to prevent possible liver damage. acetaminophen 325 mg / chlorpheniramine maleate 2 mg oral tablet (2 sources) Histamine-1 Receptor Antagonist Start: take 1 tablet by mouth every eight hours acetaminophen-chlorp heniramine 325 mg-2 mg oral tablet ; 1 tab(s) orally every 8 hours as needed for congestion Quantity: 30 Refills: 0 Ordered: 05-Feb-2021 Keith Arechiga Start: 05-Feb-2021 Generic Substitution Allowed Comments: May cause drowsiness or dizziness.This product contains acetaminophen. Do not use with any other product containing acetaminophen to prevent possible liver damage. Comment on above: May cause drowsiness or dizziness.This product contains acetaminophen. Do not use with any other product containing acetaminophen to prevent possible liver damage. aluminum hydroxide 80 mg/ml / magnesium hydroxide 80 mg/ml / simethicone 8 mg/ml oral suspension (1 source) Start: End: take 10 mL by mouth every twelve hours as needed magnesium hydroxide/aluminum hydroxide/simethicon e 400 mg-400 mg-40 mg/5 mL oral suspension ; 10 milliliter(s) orally every 12 hours, As Needed for GERD Quantity: 250 Refills: 0 Ordered: 08-Feb-2021 Larry Merchant Start: 08-Feb-2021 End: 14-Feb-2021 Generic Substitution Allowed Comments: Shake well before use. Comment on above: Shake well before us e. amLODIPine 5 mg oral tablet (20 sources) Dihydropyridine Calcium Channel Eduarda Start: amLODIPine (NORVASC) 5 MG tablet amlodipine 5 mg tablet 0 08/04/2020 Active amLODIPine Table t amoxicillin 500 mg oral capsule (5 sources) Penicillin-class Antibacterial Start: 01-14-2020 End: 01-24-2020 take 1 capsule by mouth three times daily amoxicillin (AMOXIL) 500 MG capsule Take 1 capsule by mouth 3 times daily for 10 days 30 capsule 0 01/14/2020 01/24/2020 Active Start: 12-13-2019 End: 12-23-2019 take 1 capsule by mouth three times daily amoxicillin (AMOXIL) 500 MG capsule Take 1 capsule by mouth 3 times daily for 10 days 30 capsule 0 12/13/2019 12/23/2019 Active amoxicillin 875 mg / clavulanate 125 mg oral tablet (20 sources) Penicillin-class Antibacterial take 1 tablet by mouth every twelve hours amoxicillin-clavulanate 875 mg-125 mg oral tablet ; 1 tab(s) orally every 12 hours Quantity: 0 Refills: 0 Ordered: 13-Feb-2021 Geeta Ruiz Status: Other Generic Substitution Allowed End: 02-22-2021 take 1 tablet by mouth once daily Amoxicillin-Pot Clavulanate 875-125 MG Oral Tablet TAKE 1 TABLET EVERY 12 HOURS DAILY. Quantity: 20 Refills: 0 Ordered: 22-Feb-2021 DO End : 22-Feb-2021 Complete apixaban 5 mg oral tablet (1 source) Factor Xa Inhibitor Start: 09-09-2020 Apixaban (Eliquis) 5 MG tablet Eliquis 5 mg tablet 0 09/09/2020 Active aspirin 81 mg chewable tablet (13 sources) Platelet Aggregation Inhibitor, Nonsteroidal Anti-inflammatory Drug Start: 07-05-2021 take 1 tablet by mouth once daily at mealtime aspirin 81 mg oral tablet, chewable ; 1 tab(s) chewed once a day Quantity: 30 Refills: 3 Ordered: 05-Jul-2021 Elgin Lambert Start: 05-Jul-2021 Generic Substitution Allowed Comments: Chew tablets before swallowingTake with food or milk. Comment on above: Chew tablets before swallowingTake with food or milk. azelastine hydrochloride 0.137 mg/actuat metered dose nasal spray (20 sources) Histamine-1 Receptor Antagonist Start: 08-20-2020 take 2 spray(s) nasal route twice daily azelastine (ASTELIN) 0.1 % nasal spray INSTILL 2 SPRAYS INTO EACH NOSTRIL TWICE A DAY 0 08/20/2020 Active azelastine 137 m cg/inh (0.1%) nasal spray ; 2 spray(s) nasal 2 times a day Quantity: 0 Refills: 0 Ordered: 13-Feb-2021 Geeta Ruiz Status: Other Generic Substitution Allowed Astelin 137 MCG/ SPRAY SOLN INSERT 2 SQUIRTS IN EACH NOSTRIL TWICE DAILY Quantity: 0 Refills: 0 Ordered: 17-Feb-2021 DO Active cetirizine hydrochloride 10 mg oral tablet (1 source) Histamine-1 Receptor Antagonist Start: 01-26-2021 cetirizine (ZyrTEC) 10 MG tablet Take 10 mg by mouth. 0 01/26/2021 Active chlorhexidine gluconate 1.2 mg/ml mouthwash (2 sources) Start: 09-17-2018 take 15 mL by mouth twice daily chlorhexidine (PERIDEX) 0.12 % oral solution Take 15 mL by mouth 2 times daily. 1 Bottle 0 09/17/2018 Active take 15 mL by mouth twice daily chlorhexidine gluconate 0.12 % Mouthwash, Ordered By: Nessa Dias DO Directions: 15 mL oral twice a day cholecalciferol 0.05 mg oral tablet (20 sources) Vitamin D Start: 11-04-2020 Vitamin D3 (CH OLECALCIFEROL) 50 MCG (2000 UT) TABS tablet Take 2,000 Units by mouth. 0 11/04/2020 Active Start: 09-15-2020 Cholecalcifero l 125 MCG (5000 UT) CAPS Take 5,000 Units by mouth. 0 09/15/2020 Active take 1 capsule by mo uth once daily cholecalciferol 5000 intl units (125 mcg) oral capsule ; 1 cap(s) orally once a day Quantity: 0 Refills: 0 Ordered: 13-Feb-2021 Geeta Ruiz Status: Other Generic Substitution Allowed take 1 tablet by flako th once daily Vitamin D3 125 MCG (5000 UT) Oral Tablet Take 1 tablet daily Quantity: 0 Refills: 0 Ordered: 17-Feb-2021 DO Active clindamycin 300 mg oral capsule (1 source) Lincosamide Antibacterial Start: 09-19-2018 take 1 capsule by mouth three times daily clindamycin (CLEOCIN) 300 MG capsule Take 1 Capsule by mouth 3 times daily. 30 Capsule 0 09/19/2018 Active clonazePAM 0.5 mg oral tablet (20 sources) Benzodiazepine take 1 tablet by mouth once daily clonazePAM 0.5 mg oral tablet ; 1 tab(s) orally once a day Quantity: 0 Refills: 0 Ordered: 13-Feb-2021 Sara Geeta Status: Other Generic Substitution Allowed cloNIDine hydrochloride 0.2 mg oral tablet (20 sources) Central alpha-2 Adrenergic Agonist Start: 2024 cloNIDine 0.2 mg Tab Refills(s) 0 Start Date: 07/20/24 Status: Ordered Start: 07-09-2024 End: 07-16-2024 take 0.2 mg by mouth twice daily Clonidine Hcl Active 0.2 MG PO Twice daily July 15, 2024 12:00am Start: 07-09-2024 End: 07-09-2024 take 1 tablet by mouth once cloNIDine 0.2 mg Tab 0.2 m g = 1 tab(s), Tab, Oral, Once, Stop date 07/09/24 7:52:34 PM EDT, STAT, Start date 07/09/24 7:24:00 PM EDT, 07/09/24 19:24:00 EDT Start Date: 07/09/24 Stop Date: 07/09/24 Status: Completed Start: 06-15-2021 take 1 tablet by flako th three times daily cloNIDine HCl - 0.2 MG Oral Tablet TAKE 1 TABLET 3 TIMES DAILY. Quantity: 270 Refills: 3 Ordered: 28-Aug-2021 Arleth Montesinos Start : 15-Jun-2021 Active Start: 08-15-2020 cloNIDine (CAT APRES) 0.2 MG tablet Take 0.1 mg by mouth. 0 08/15/2020 Active Start: 01-25-2020 take 1 tablet by flako th twice daily Catapres 0.2 mg oral tablet ; 1 tab(s) orally 2 times a day Quantity: 60 Refills: 0 Ordered: 25-Jan-2020 Lilian Segal Start: 25-Jan-2020 Generic Substitution Allowed Comments: It is very important that you take or use this exactly as directed. Do not skip doses or discontinue unless directed by your doctor.May cause drowsiness. Alcohol may intensify this effect. Use care when operating dangerous machinery.Some non-prescription drugs may aggravate your condition. Read all labels carefully. If a warning appears, check with your doctor before taking. Start: 12-13-2019 cloNIDine (CAT APRES) tablet 0.1 mg Start: 05-18-2019 End: 07-06-2021 take 1 tablet by mouth once daily cloNIDine 0.1 mg oral tablet ; 1 tab(s) orally once a day, Quantity: 30 Refills: 0 Ordered: 07-Jun-2021 [employer] Start: 07-Jun-2021 End: 06-Jul-2021 Generic Substitution Allowed Comments: It is very important that you take or use this exactly as directed. Do not skip doses or discontinue unless directed by your doctor.May cause drowsiness. Alcohol may intensify this effect. Use care when operating dangerous machinery.Some non-prescription drugs may aggravate your condition. Read all labels carefully. If a warning appears, check with your doctor before taking. take 1 tablet by flako th once daily cloNIDine HCl 0.2 mg Tablet, Ordered By: Amy Crandall MD Directions: 1 tablet oral daily take 1 tablet by flako th three times daily cloNIDine HCl 0.1 mg Tablet Directions: 1 tablet oral three times a day cloNIDine HCl Comment on above: It is very important that you take or use this exactly as directed. Do not skip doses or discontinue unless directed by your doctor.May cause drowsiness. Alcohol may intensify this effect. Use care when operating dangerous machinery.Some non-prescription drugs may aggravate your condition. Read all labels carefully. If a warning appears, check with your doctor before taking. Take 1 tablet by flako th twice daily. docusate sodium 100 mg oral capsule (20 sources) Start: End: 3 take 1 capsule by mouth once daily docusate sodium (COLACE) 100 MG capsule Take 1 capsule by mouth daily for 15 days 15 capsule 0 02/01/2023 02/16/2023 Active take 1 tablet by mouth twice nirali ly docusate sodium 100 mg oral tablet ; 1 tab(s) orally 2 times a day Quantity: 0 Refills: 0 Ordered: 13-Feb-2021 Geeta Ruiz Status: Other Generic Substitution Allowed take 1 capsule by mo [facility] twice daily as needed Docusate Sodium 100 MG Oral Capsule TAKE 1 CAPSULE TWICE DAILY NEEDED. Quantity: 0 Refills: 0 Ordered: 17-Feb-2021 DO Active famotidine 20 mg oral tablet (9 sources) Histamine-2 Receptor Antagonist Start: 01-30-2021 End: 02-12-2021 take 1 tablet by mouth twice daily famotidine 20 mg oral tablet ; 1 tab(s) orally 2 times a day Quantity: 20 Refills: 0 Ordered: 03-Feb-2021 Albina Lopez Start: 03-Feb-2021 End: 12-Feb-2021 Generic Substitution Allowed Comments: It is very important that you take or use this exactly as directed. Do not skip doses or discontinue unless directed by your doctor.Obtain medical advice before taking any non-prescription drugs as some may affect the action of this medication. Comment on above: It is very important that you take or use this exactly as directed. Do not skip doses or discontinue unless directed by your doctor.Obtain medical advice before taking any non-prescription drugs as some may affect the action of this medication. 12 hr guaiFENesin 600 mg extended release oral tablet (1 source) Start: 01-22-2021 guaifenesin (MUCINEX) 600 MG SR tablet Take 600 mg by mouth. 0 01/22/2021 Active humidifier (1 source) Start: 09-17-2018 humidifier Use in room while sleeping 1 Each 0 09/17/2018 Active hydroCHLOROthiazide 25 mg / triamterene 37.5 mg oral capsule (20 sources) Potassium-sparin g Diuretic, Thiazide Diuretic take 1 capsule by mouth once daily triamterene-hydrochl orothiazide 37.5 mg-25 mg oral capsule ; 1 cap(s) orally once a day Quantity: 0 Refills: 0 Ordered: 13-Feb-2021 Geeta Ruiz Status: Other Generic Substitution Allowed take 1 tablet by mouth once tariq y Triamterene-HCTZ 37.5-25 MG Oral Tablet TAKE 1 TABLET DAILY. Quantity: 90 Refills: 3 Ordered: 17-Feb-2021 DO Active lamoTRIgine 25 mg chewable tablet (1 source) Mood Stabilizer, Anti-epileptic Agent Start: 08-04-2020 lamoTRIgine 25 MG CHEW Take 25 mg by mouth. 0 08/04/2020 Active lidocaine hydrochloride 20 mg/ml mucous membrane topical solution (20 sources) Antiarrhythmic, Amide Local Anesthetic Start: 05-27-2021 Lidocaine Viscous 2% mucous membrane solution ; Apply topically to affected area 3 times a day (before meals) Quantity: 75 Refills: 0 Ordered: 27-May-2021 WillieNoel raymundo Start: 27-May-2021 Status: Other Generic Substitution Allowed Start: 03-29-2021 End: 02-01-2023 lidocaine viscous hcl (XYLOC JESSICA) 2 % SOLN solution Take 5 mLs by mouth every 4 hours as needed for Pain 100 mL 0 02/01/2023 Active Start: 03-24-2021 AneCream 5 top ical cream ; Apply topically to affected area Quantity: 1 Refills: 3 Ordered: 24-Mar-2021 BobbyCheo carvajal Start: 24-Mar-2021 Status: Other Generic Substitution Allowed Comments: For external use only. Start: 02-22-2021 Lidocaine Visc ous HCl - 2 % Mouth/Throat Solution take one teaspoon and swish and spit four times a day as needed Quantity: 100 Refills: 0 Ordered: 22-Feb-2021 Meagan Vizcarra Start : 22-Feb-2021 Active Start: 02-13-2021 End: 03-04-2021 lidocaine 2% mucous membrane solution ; 5 milliliter(s) mucous membrane every 4 hours, As Needed for upset stomach Quantity: 100 Refills: 0 Ordered: 13-Feb-2021 Megan Wheeler Start: 13-Feb-2021 End: 04-Mar-2021 Status: Other Generic Substitution Allowed Start: 12-14-2020 Lidocaine HCl (lidocaine viscous) 2 % SOLN solution Comment on above: For external use onl y. lisinopril 20 mg oral tablet (16 sources) Angiotensin Converting Enzyme Inhibitor Start: 05-10-2019 End: 07-16-2024 take 1 tablet by mouth once daily lisinopril 20 mg Tab 20 mg = 1 tab(s), Oral, Daily, Refills(s) 0 Start Date: 05/16/19 Status: Ordered Losartan (20 sources) Angiotensin 2 Receptor Eduarda Start: 2024 losartan See Instructions, Oral Daily, Refills(s) 0 Start Date: 07/20/24 Status: Ordered Start: 07-15-2024 take 25 mg by mouth once daily Losartan Active 25 MG PO Daily July 15, 2024 12:00am Start: 10-01-2021 take 2 tablets by mo uth once daily Losartan Potassium 25 MG Oral Tablet TAKE 2 TABLETS BY MOUTH DAILY DIRECTED Quantity: 40 Refills: 0 Ordered: 01-Oct-2021 Arleth Montesinos Start : 01-Oct-2021 Active Start: 08-28-2021 take 2 tablets by mo uth once daily Losartan Potassium 25 MG Oral Tablet TAKE 2 TABLETs DAILY DIRECTED. Quantity: 40 Refills: 0 Ordered: 29-Sep-2021 Viral Amado DO Start : 28-Aug-2021 Active Start: 08-02-2021 End: 06-12-2023 take 1 tablet by mouth once daily losartan 50 mg oral tablet ; 1 tab(s) orally once a day Quantity: 7 Refills: 0 Ordered: 06-Jun-2023 TYREE MACKENZIE Start: 20-Aug-2021 End: 12-Jun-2023 Generic Substitution Allowed Start: 01-30-2021 take 1 tablet by flako th once daily Losartan Potassium 25 MG Oral Tablet Take 1 tablet daily Quantity: 10 Refills: 0 Ordered: 28-Aug-2021 Nubia Harris MD Start : 28-Aug-2021 Active Start: 02-10-2018 End: 01-14-2020 take 1 tablet by mouth once daily Losartan Potassium 25 MG Oral Tablet TAKE 1 TABLET BY MOUTH EVERY DAY FOR 7 DAYS Quantity: 7 Refills: 0 Ordered: 25-Apr-2021 DO Start : 24-Apr-2021 Complete losartan Tablet Comment on above: Take 1 tablet by flako th once daily. magnesium citrate 58.2 mg/ml oral solution (5 sources) Start: 3 take 300 mL by mouth once as needed for constipation Citroma Angel 1.745 g/30 mL oral liquid ; 300 milliliter(s) orally once, As Needed -for constipation Quantity: 1 Refills: 0 Ordered: 29-Jan-2023 Venessa Mejias Start: 29-Jan-2023 Generic Substitution Allowed {2 (480 ML) (magnesium sulfate 0.0277 MEQ/ML / potassium sulfate 0.0374 MEQ/ML / sodium sulfate 0.257 MEQ/ML Oral Solution) } Pack [Suprep Bowel Prep Kit] (1 source) Start: 4 Suprep Bowel Prep Kit oral liquid 177 mL, Oral, As Directed for 2 dose(s), 1 kit(s), Refill(s) 0, dilute each 177 ml bottle and drink according to box directions or as directed by physician, [facility], 167, cm, 07/20/24 11:11:00 EDT, Height/Length Dosing, 95, kg, 07/20/24 11:11:00 EDT, Weight Dosing Start Date: 07/20/24 Status: Ordered 24 hr metoprolol succinate 25 mg extended release oral tablet (20 sources) beta-Adrenergic Eduarda Start: take 50 mg by mouth once daily Metoprolol Succinate Active 50 MG PO Daily July 16, 2024 12:00am Start: 07-09-2024 End: 07-16-2024 take 1 tablet by mouth once daily metoprolol succinate 50 mg ER Tab 50 mg = 1 tab(s), Oral, Daily, X 7 day(s), # 7 tab(s), Refills(s) 0 Start Date: 07/09/24 Stop Date: 07/16/24 Status: Ordered Start: 07-09-2024 End: 07-09-2024 Metoprolol tartrate 50 mg Ta b 25 mg = 0.5 tab(s), Tab, Oral, Once, Stop date 07/09/24 7:06:41 PM EDT, STAT, Start date 07/09/24 6:49:00 PM EDT, 07/09/24 18:49:00 EDT Start Date: 07/09/24 Stop Date: 07/09/24 Status: Completed Start: 02-14-2020 End: 02-28-2020 take 1 tablet by mouth once daily at mealtime metoprolol tartrate 50 mg oral tablet ; 1 tab(s) orally once a day Quantity: 15 Refills: 0 Ordered: 14-Feb-2020 Rashard Pradhan Start: 14-Feb-2020 End: 28-Feb-2020 Generic Substitution Allowed Comments: It is very important that you take or use this exactly as directed. Do not skip doses or discontinue unless directed by your doctor.May cause drowsiness or dizziness.Some non-prescription drugs may aggravate your condition. Read all labels carefully. If a warning appears, check with your doctor before taking.Take with food or milk.This drug may impair the ability to drive or operate machinery. Use care until you become familiar with its effects. Start: 01-09-2020 metoprolol (LO PRESSOR) 100 MG tablet Take 50 mg by mouth. 0 01/09/2020 Active Start: 12-15-2019 metoprolol tar trate (LOPRESSOR) tablet 25 mg Start: 12-13-2019 End: 12-22-2021 take 1 tablet by mouth twice daily metoprolol tartrate (LOPRESSOR) 25 MG tablet Take 1 tablet by mouth 2 times daily 60 tablet 0 12/13/2019 Active Start: 12-13-2019 metoprolol tar trate (LOPRESSOR) tablet 50 mg Start: 05-10-2019 End: 07-16-2024 take 25 mg by mouth once daily Metoprolol Tartrate Dis continued 25 MG PO Daily May 10, 2019 12:00am July 16, 2024 12:10pm Start: 02-10-2018 End: 06-12-2023 take 1 tablet by mouth once daily Toprol XL 25 mg Tab-ER 25 mg = 1 tab(s), Oral, Daily, # 30 tab(s), Refills(s) 0 Start Date: 05/17/19 Status: Ordered take 1 tablet by flako th every twenty-four hours metoprolol succinate 25 mg Tablet Extended Release 24 hr Directions: 1 tablet oral daily metoprolol tartr ate Tablet take 1 tablet by flako th twice daily metoprolol tartrate (LOPRESSOR) 25 MG tablet Take 25 mg by mouth 2 times daily 0 Active Comment on above: It is very important that you take or use this exactly as directed. Do not skip doses or discontinue unless directed by your doctor.May cause drowsiness or dizziness.Some non-prescription drugs may aggravate your condition. Read all labels carefully. If a warning appears, check with your doctor before taking.Swallow whole. Do not crush.Take with food or milk.This drug may impair the ability to drive or operate machinery. Use care until you become familiar with its effects. It is very important that you take or use this exactly as directed. Do not skip doses or discontinue unless directed by your doctor.May cause drowsiness or dizziness.Some non-prescription drugs may aggravate your condition. Read all labels carefully. If a warning appears, check with your doctor before taking.Take with food or milk.This drug may impair the ability to drive or operate machinery. Use care until you become familiar with its effects. Take one pill twice a day and may take additional pill as needed Multivitamin preparation (20 sources) take 1 tablet by mouth once daily Multiple Vitamins oral tablet ; 1 tab(s) orally once a day Quantity: 0 Refills: 0 Ordered: 13-Feb-2021 Geeta Ruiz Status: Other Generic Substitution Allowed take 1 tablet by mouth once tariq y Multiple Vitamins oral tablet ; 1 tab(s) orally once a day Quantity: 0 Refills: 0 Ordered: 13-Feb-2021 Geeta Ruiz Generic Substitution Allowed omeprazole 20 mg delayed release oral capsule (13 sources) Proton Pump Inhibitor Start: 03-29-2021 End: 04-12-2021 take 1 capsule by mouth once daily omeprazole (PRILOSEC) 20 MG delayed release capsule Take 1 capsule by mouth Daily for 14 days 14 capsule 0 03/29/2021 Active Start: 02-22-2021 take 1 capsule by mo [facility] once daily Omeprazole 40 MG Oral Capsule Delayed Release Take one capsule once a day Quantity: 30 Refills: 11 Ordered: 22-Feb-2021 Meagan Vizcarra Start : 22-Feb-2021 Active take 1 tablet by flako once daily omeprazole magnesium 20 mg tablet,delayed release (DR/EC), Ordered By: Jean-Paul Ascencio MD Directions: 1 tablet oral daily psyllium 3400 mg powder for oral suspension (7 sources) Start: 2024 Metamucil 3.4 g/5.2 g oral powder 3.4 gram, Oral, TID, PRN for constipation, # 283 gram, Refills(s) 3, Pharmacy: [facility], 167, cm, 07/20/24 11:11:00 EDT, Height/Length Dosing, 95, kg, 07/20/24 11:11:00 EDT, Weight Dosing Start Date: 07/20/24 Status: Ordered Start: 02-22-2021 Metamucil 28.3 % Oral Powder mix one tablespoon in 8 ounces of water daily Quantity: 1 Refills: 2 Ordered: 22-Feb-2021 Meagan Vizcarra Start : 22-Feb-2021 Active sucralfate 100 mg/ml oral suspension (20 sources) Aluminum Complex take 10 mL by mouth four times daily at bedtime sucralfate 1 g/10 mL oral suspension ; 10 milliliter(s) orally 4 times a day (before meals and at bedtime) Quantity: 0 Refills: 0 Ordered: 13-Feb-2021 Geeta Ruiz Status: Other Generic Substitution Allowed take 1 tablet by flako four times daily at bedtime sucralfate 1 gram Tablet, Ordered By: Nessa Dias DO Directions: 1 tablet oral four times daily before meals and at bedtime zinc acetate 50 mg oral capsule (20 sources) take 1 capsule by mo [facility] once daily zinc (as acetate) 50 mg oral capsule ; 1 cap(s) orally once a day Quantity: 0 Refills: 0 Ordered: 13-Feb-2021 Geeta Ruiz Status: Other Generic Substitution Allowed Completed/Discontinued Medications Medication Drug Class(es) Dates Sig (Normalized) Sig (Original) aluminum & magnesium hydroxide-simethicon e (MAALOX) 30 mL, lidocaine viscous hcl (XYLOCAINE) 5 mL (GI COCKTAIL) (2 sources) Start: 02-01-2023 End: 02-01-2023 aluminum & magnesium hydroxide-simethico ne (MAALOX) 30 mL, lidocaine viscous hcl (XYLOCAINE) 5 mL (GI COCKTAIL) Start: 03-29-2021 End: 03-29-2021 aluminum & magnesium hydroxi de-simethicone (MAALOX) 30 mL, lidocaine viscous hcl (XYLOCAINE) 5 mL (GI COCKTAIL) atorvastatin 40 mg oral tablet (20 sources) HMG-CoA Reductase Inhibitor Start: 07-05-2021 take 1 tablet by mouth once daily at mealtime atorvastatin 40 mg oral tablet ; 1 tab(s) orally once a day Quantity: 30 Refills: 3 Ordered: 05-Jul-2021 Elgin Lambert Start: 05-Jul-2021 Generic Substitution Allowed Comments: Avoid grapefruit and grapefruit juice while taking this medication.Do not take this drug if you are .It is very important that you take or use this exactly as directed. Do not skip doses or discontinue unless directed by your doctor.Obtain medical advice before taking any non-prescription drugs as some may affect the action of this medication.Take with food or milk. Start: 08-26-2020 atorvastatin ( LIPITOR) 10 MG tablet atorvastatin 10 mg tablet 0 08/26/2020 Active Comment on above: Avoid grapefruit and grapefruit juice while taking this medication.Do not take this drug if you are .It is very important that you take or use this exactly as directed. Do not skip doses or discontinue unless directed by your doctor.Obtain medical advice before taking any non-prescription drugs as some may affect the action of this medication.Take with food or milk. barium sulfate 96 % suspension 176 g (1 source) Start: End: barium sulfate 96 % suspension 176 g barium sulfate 98 % suspension 140 mL (1 source) Start: End: barium sulfate 98 % suspension 140 mL BMX, Ordered By: Jean-Paul Ascencio MD Directions: 10 ml (1 source) BMX, Ordered By: Jean-Paul Ascencio MD Directions: 10 ml citric acid 75 mg/ml / magnesium oxide 21.9 mg/ml / picosulfate sodium 0.0625 mg/ml oral solution (4 sources) Calculi Dissolution Agent, Anti-coagulant Start: Clenpiq 10-3.5-12 MG-GM -GM/160ML Oral Solution Take 160 mL (1 bottle) the evening before the colonoscopy, followed by a second 160 mL dose 5 hours before colonoscopy. Quantity: 2 Refills: 0 Ordered: 31-Jul-2021 Samantha PEREZ, Motcharo Start : 24-Jul-2021 Active dexamethasone 4 mg oral tablet (20 sources) Corticosteroid Start: End: take 1 tablet by mouth once daily dexamethasone 4 mg oral tablet ; 1 tab(s) orally once a day Quantity: 3 Refills: 0 Ordered: 13-Feb-2021 Megan Wheeler Start: 13-Feb-2021 End: 15-Feb-2021 Status: Other Generic Substitution Allowed Start: 02-03-2021 End: 02-11-2021 take 1 tablet by mouth once daily at mealtime dexamethasone 4 mg oral tablet ; 1 tab(s) orally once a day Quantity: 3 Refills: 0 Ordered: 05-Feb-2021 Keith Arechiga Start: 05-Feb-2021 End: 11-Feb-2021 Generic Substitution Allowed Comments: It is very important that you take or use this exactly as directed. Do not skip doses or discontinue unless directed by your doctor.Obtain medical advice before taking any non-prescription drugs as some may affect the action of this medication.Take with food or milk. Comment on above: It is very important that you take or use this exactly as directed. Do not skip doses or discontinue unless directed by your doctor.Obtain medical advice before taking any non-prescription drugs as some may affect the action of this medication.Take with food or milk. dicyclomine hydrochloride 10 mg oral capsule (20 sources) Anticholinergic Start: End: take 2 capsules by mouth four times daily dicyclomine 10 mg oral capsule ; 2 cap(s) orally 4 times a day, As Needed Quantity: 56 Refills: 0 Ordered: 26-Jun-2021 Balta Melo Start: 26-Jun-2021 End: 02-Jul-2021 Status: Other Generic Substitution Allowed Comments: May cause drowsiness. Alcohol may intensify this effect. Use care when operating dangerous machinery. Start: 06-26-2021 Dicyclomine HC l - 10 MG Oral Capsule Quantity: 56 Refills: 0 Ordered: 26-Jun-2021 DO Start : 26-Jun-2021 Active Start: 01-30-2021 take 1 tablet by flako th every six hours as needed Dicyclomine HCl - 20 MG Oral Tablet TAKE 1 TABLET EVERY 6 HOURS NEEDED. Quantity: 40 Refills: 0 Ordered: 22-Feb-2021 Meagan Vizcarra Start : 22-Feb-2021 Active Comment on above: May cause drowsiness . Alcohol may intensify this effect. Use care when operating dangerous machinery. 1 ml hydrALAZINE hydrochloride 20 mg/ml injection (20 sources) Arteriolar Vasodilator Start: 02-02-2023 End: 02-02-2023 hydrALAZINE (APRESOLINE) injection 20 mg take 1 tablet by mouth once tariq y hydrALAZINE 10 mg oral tablet ; 1 tab(s) orally once a day Quantity: 0 Refills: 0 Ordered: 13-Feb-2021 Geeta Ruiz Status: Other Generic Substitution Allowed ibuprofen 400 mg oral tablet (4 sources) Nonsteroidal Anti-inflammatory Drug Start: 08-25-2021 take 1 tablet by mouth every six hours as needed ibuprofen (MOTRIN) 400 mg tablet Take 1 tablet by mouth every 6 hours as needed for pain. 28 tablet 0 08/25/2021 Active Start: 04-18-2021 End: 04-24-2021 take 1 tablet by mouth three times daily as needed for pain IBU 600 mg oral tablet ; 1 tab(s) orally 3 times a day as needed for pain Quantity: 21 Refills: 0 Ordered: 18-Apr-2021 Lars Grupo Start: 18-Apr-2021 End: 24-Apr-2021 Generic Substitution Allowed Start: 02-05-2021 End: 02-11-2021 take 1 tablet by mouth every six hours IBU 600 mg oral tablet ; 1 tab(s) orally every 6 hours as needed for pain Quantity: 30 Refills: 0 Ordered: 05-Feb-2021 Keith Arechiga Start: 05-Feb-2021 End: 11-Feb-2021 Generic Substitution Allowed Comments: Do not take this drug if you are .It is very important that you take or use this exactly as directed. Do not skip doses or discontinue unless directed by your doctor.May cause drowsiness or dizziness.Obtain medical advice before taking any non-prescription drugs as some may affect the action of this medication.Take with food or milk. Comment on above: Do not take this luisito g if you are .It is very important that you take or use this exactly as directed. Do not skip doses or discontinue unless directed by your doctor.May cause drowsiness or dizziness.Obtain medical advice before taking any non-prescription drugs as some may affect the action of this medication.Take with food or milk. Take 1 tablet by flako th every 6 hours as needed for pain. iopamidol (ISOVUE-370) 76 % injection 75 mL (1 source) Start: 01-17-2020 End: 01-17-2020 iopamidol (ISOVUE-370) 76 % injection 75 mL iopamidol (ISOVUE-370) 76 % injection 90 mL (1 source) Start: 02-01-2023 End: 02-01-2023 iopamidol (ISOVUE-370) 76 % injection 90 mL 1 ml ketorolac tromethamine 30 mg/ml cartridge (2 sources) Nonsteroidal Anti-inflammatory Drug, Cyclooxygenase Inhibitor Start: 03-29-2021 End: 03-29-2021 ketorolac (TORADOL) injection 30 mg take 1 tablet by flako th every eight hours as needed for pain ketorolac 10 mg Tablet, Ordered By: Vineet Mata DO Directions: 1 tablet oral every eight hours PRN pain melatonin 10 mg oral capsule (20 sources) Start: 02-22-2021 take 1 tablet by mouth at bedtime as needed Melatonin 10 MG Oral Capsule take one tablet at bedtime as needed Quantity: 30 Refills: 5 Ordered: 22-Feb-2021 Meagan Vizcarra Start : 22-Feb-2021 Active melatonin 3 MG T ABS tablet melatonin 3 mg tablet 0 Active take 1 tablet by flako th once daily at bedtime Melatonin 5 mg oral tablet ; 1 tab(s) or ally once a day (at bedtime) Quantity: 0 Refills: 0 Ordered: 13-Feb-2021 Geeta Ruiz Status: Other Generic Substitution Allowed take 1 tablet by mouth at bedtim e Melatonin TABS TAKE 1 TABLET Bedtime - as needed. Quantity: 0 Refills: 0 Ordered: 17-Feb-2021 DO Active methocarbamol 500 mg oral tablet (14 sources) Muscle Relaxant Start: 06-23-2021 take 1 tablet by mouth three times daily Methocarbamol 500 MG Oral Tablet TAKE 1 TABLET 3 TIMES DAILY. Quantity: 21 Refills: 0 Ordered: 23-Jun-2021 Viral Amado DO Start : 23-Jun-2021 Active take 0.5 tablet by m out three times daily as needed for pain methocarbamol 500 mg Tablet Directions: 0.5 tablet oral three times a day PRN pain Multi-Vitamin TABS (1 source) Multi-Vitamin TA BS TAKE 1 TABLET DAILY. Quantity: 0 Refills: 0 Ordered: 17-Feb-2021 DO Active naproxen 500 mg oral tablet (1 source) Nonsteroidal Anti-inflammatory Drug Start: 11-05-19 14 End: 05-18-20 19 take 1 tablet by mouth twice daily naproxen (NAPROSYN) 500 MG tablet Take 1 tablet by mouth 2 times daily for 7 days. 14 tablet 0 11/05/2013 05/18/2019 Discontinued (Therapy completed) nitroglycerin 0.4 mg sublingual tablet (20 sources) Nitrate Vasodilator Start: 08-26-20 Nitroglycerin 0.4 MG Sublingual Tablet Sublingual PLACE 1 TABLET UNDER THE TONGUE EVERY 5 MINUTES UP TO 3 DOSES NEEDED FOR CHEST PAIN (call 911 with 3rd dose). Quantity: 1 Refills: 5 Ordered: 28-Aug-2021 Masoud CARUSOCHARIArleth Start : 25-Dec-2020 Active ondansetron 4 mg oral tablet (7 sources) Serotonin-3 Receptor Antagonist Start: 05-05-20 End: 07-15-20 Ondansetron Hcl Discontinued 4 MG PO every 6 to 8 hours May 05, 2023 12:00am July 15, 2024 10:06am Start: 10-24-2013 End: 05-18-2019 take 1 tablet by mouth every six hours ondansetron (ZOFRAN ODT) 4 MG disintegrating tablet 1 tablet by mouth every 6 hours when necessary nausea or vomiting. 8 tablet 0 10/24/2013 05/18/2019 Discontinued (Therapy completed) oxymetazoline hydrochloride 0.5 mg/ml nasal spray (1 source) oxymetazoline (A frin Sinus (oxymetazoline)) 0.05 % spray,non-aerosol, Ordered By: Nessa iDas DO Directions: 2 spray nasal every twelve hours Additional Instructions: Do not use for longer than 3 days. pantoprazole 40 mg delayed release oral tablet (20 sources) Proton Pump Inhibitor Start: End: take 1 tablet by mouth once daily pantoprazole 40 mg oral delayed release tablet ; 1 tab(s) orally once a day Quantity: 30 Refills: 0 Ordered: 17-Apr-2021 Laura Carvajal Start: 17-Apr-2021 End: 16-May-2021 Status: Other Generic Substitution Allowed Comment on above: It is very important that you take or use this exactly as directed. Do not skip doses or discontinue unless directed by your doctor.Obtain medical advice before taking any non-prescription drugs as some may affect the action of this medication.Swallow whole. Do not crush. penicillin v potassium 500 mg oral tablet (1 source) take 1 tablet by mouth four times daily penicillin V potassium 500 mg Tablet, Ordered By: Nessa Dias DO Directions: 1 tablet oral four times daily polyethylene glycol 3350 58240 mg powder for oral solution (12 sources) Osmotic Laxative Start: End: Polyethylene Glycol 3350 (Miralax) 17 gram/dose powder Discontinued 17 GM PO Twice daily July 14, 2024 12:00am July 16, 2024 12:09pm mix into 4-8 oz. of any hot/cold/room temp. beverage; use immediately Start: 02-01-2023 End: 03-03-2023 polyethylene glycol (GLYCOLA X) 17 GM/SCOOP powder Take 17 g by mouth daily 510 g 0 02/01/2023 03/03/2023 Active Start: 01-29-2023 End: 02-04-2023 polyethylene glycol 3350 ora l powder for reconstitution ; 17 gram(s) orally 2 times a day, As Needed -for constipation Quantity: 1 Refills: 0 Ordered: 29-Jan-2023 Venessa Mejias Start: 29-Jan-2023 End: 04-Feb-2023 Generic Substitution Allowed Comments: Dilute this medication with liquid before administration.It is very important that you take or use this exactly as directed. Do not skip doses or discontinue unless directed by your doctor. Comment on above: Dilute this medicati on with liquid before administration.It is very important that you take or use this exactly as directed. Do not skip doses or discontinue unless directed by your doctor. polyethylene glycol 3350 504697 mg / potassium chloride 1480 mg / sodium bicarbonate 5720 mg / sodium chloride 12275 mg powder for oral solution (3 sources) Osmotic Laxative Start: PEG 3350-KCl-Na Bicarb-NaCl 420 GM Oral Solution Reconstituted TAKE DIRECTED TAKE 2ND HALF OF PREP THE DAY OF PROCEDURE FINISHING2-3 HRS PRIOR TO PROCEDURE Quantity: 1 Refills: 0 Ordered: 07-Jul-2021 Lynette Saldaña MD Start : 07-Jul-2021 Active Sennosides (Senna) 8.6 mg capsule (3 sources) Start: End: take 2 capsules by mouth twice daily Sennosides (Senna) 8.6 mg capsule Discontinued 17.2 MG PO Twice daily 120 July 15, 2024 12:00am July 16, 2024 12:10pm Start: 07-15-2024 take 2 capsules by m outh twice daily Sennosides (Senna) 8.6 mg capsule Active 17.2 MG PO Twice daily 120 July 15, 2024 12:00am sennosides, snf 8.6 mg oral tablet (16 sources) Start: 08-11-2021 take 1 tablet by mouth once daily at bedtime Senna Laxative 8.6 MG Oral Tablet Take one tablet daily at bedtime Quantity: 30 Refills: 6 Ordered: 11-Aug-2021 Meagan Vizcarra Start : 11-Aug-2021 Active 50 ml sodium chloride 9 mg/ml injection (8 sources) Start: 05-30-2023 End: 05-30-2023 sodium chloride 0.9 % iv bolus Start: 02-01-2023 End: 02-01-2023 sodium chloride flush 0.9 % injection 10 mL Start: 02-01-2023 End: 02-01-2023 0.9 % sodium chloride bolus Start: 03-29-2021 End: 03-29-2021 0.9 % sodium chloride bolus Start: 05-18-2019 End: 05-18-2019 0.9 % sodium chloride bolus sodium chloride (Saline Nasal) 0.65 % aerosol,spray, Ordered By: Nessa Dias DO Directions: 2 spray nasal twice a day Suprep Bowel Prep Kit 17.5-3.13-1.6 GM/177ML Oral Solution (20 sources) Start: 08-09-2021 Suprep Bowel P rep Kit 17.5-3.13-1.6 GM/177ML Oral Solution DILUTE CONTENTS AND USE DIRECTED FOR BOWEL PREP Quantity: 1 Refills: 0 Ordered: 29-Nov-2021 Meagan Vizcarra Start : 09-Aug-2021 Active approved unitl 12/02/2021 Start: 08-09-2021 Suprep Bowel P rep Kit 17.5-3.13-1.6 GM/177ML Oral Solution DILUTE CONTENTS AND USE DIRECTED FOR BOWEL PREP Quantity: 1 Refills: 0 Ordered: 09-Aug-2021 Meagan Vizcarra Start : 09-Aug-2021 Active Start: 04-25-2021 Suprep Bowel P rep Kit 17.5-3.13-1.6 GM/177ML Oral Solution DILUTE CONTENTS AND USE DIRECTED FOR BOWEL PREP Quantity: 1 Refills: 0 Ordered: 25-Apr-2021 Lupis VIOLET-LADONNAMeagan Start : 25-Apr-2021 Active torado (1 source) torado triamcinolone acetonide 5 mg/ml topical cream (1 source) Corticosteroid Start: 02-10-2018 triamcinolone acetonide (KENALOG) 0.5 % cream Apply 1 application to affected area twice daily. APPLY TO AFFECTED AREA 30 g 0 02/10/2018 Active Comment on above: Apply 1 application to affected area twice daily. APPLY TO AFFECTED AREA Zinc (1 source) Zinc TABS TAKE 1 TABLET DAILY. Quantity: 0 Refills: 0 Ordered: 17-Feb-2021 DO Active Problems Active Problems Problem Classification Problem Date Documented Da te Episodic/Chronic Abdominal pain (20 sources) Abdominal pain; Translations: [Abdominal pain, unspecified site] Onset: 06-08-2021 02-15-2021 Episodic Comment on above: FLANK PAIN FLANK PAIN. Outside Source Comme nt: Comment on above: FLANK PAIN Acute myocardial infarction (5 sources) Myocardial infarction; Translations: [Subendocardial infarction, initial episode of care] 07-04-2021 Chronic Administrative/social admission (9 sources) Encounter for issue of repeat prescription; Translations: [Persons encountering health services in other specified circumstances] Onset: 11-14-2020 01-31-2021 Episodic Alcohol-related disorders (20 sources) Alcohol abuse; Translations: [Alcohol abuse, unspecified] 04-18-2021 Chronic Alcohol-related disorders (4 sources) Alcohol use, unspecified with intoxication, uncomplicated;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 someone. He denies any SI or HI. He has no medical concerns at this time. MHP was offered to the patient. He requested an in person evaluation. He was given an appointment for 10 AM tomorrow with the [facility]. Return precautions were discussed. All questions were answered. The patient was discharged home. Assessment/Plan Anxiety (F41.9: Anxiety disorder, unspecified) Orders: Consult to Mental Health Disposition Plan Patient Discharge Condition Stable Discharge Disposition Home Discharge Prescription List Prescriptions No active prescription medications Follow-up With When Contact Information [facility] In 3 days 07/19/2024 EDT Additional Instructions: You have an appointment at the [facility] office tomorrow at 10 AM. Yang VALENCIA In 3 days 07/19/[address] [place], [place] [id number] Business (1) Additional Instructions: Call the office of your primary care doctor to arrange for follow-up within the above-stated timeframe. Follow-up with your primary care doctor about this ED visit. You should review your labs, imaging, and diagnoses from this ED visit with your primary care physician. There are occasionally non-emergent findings that require additional follow-up after your ED visit. If you were prescribed medications you should discuss possible side-effects and drug interactions with your pharmacist. Call 911 or go to the nearest Emergency Department if you develop any new or worsening symptoms. Patient Education Caring for Your Mental Health Problem List/Past Medical History Ongoing Abdominal pain Alcohol abuse Anemia Aortic aneurysm, thoracic Asthenia Autoimmune disease Bipolar II disorder Callosity Cerebral palsy Costal chondritis Disorder of kidney and/or ureter Dizziness Dysphagia Esophageal dysmotility Essential hypertension Hypertensive urgency Kidney stone Leukopenia Low blood pressure Myocardial infarction Nausea and vomiting Old myocardial infarction Pancytopenia Pulmonary embolism Renal artery stenosis Smoker Swallowing painful Historical Aneurysm of descending aorta Hyperlipidemia Hypertension Medications Inpatient No active inpatient medications Home lisinopril 20 mg Tab, 20 mg= 1 tab(s), Oral, Daily, Not taking metoprolol 25 mg ER Tab, 25 mg= 1 tab(s), Oral, Daily Toprol XL 25 mg Tab-ER, 25 mg= 1 tab(s), Oral, Daily Allergies Ativan (Ill) Social History Alcohol - Medium Risk, 05/16/2019 Current, Beer, Daily, 05/16/2019 Substance Abuse - Denies Substance Abuse, 07/11/2024 Tobacco - Medium Risk, 05/16/2019 smokes a cigar about once a month Tobacco Use:. Cigars, 05/16/2019 (more content not included)... Normal [facility] Comment on above: Result Comment: Elec tronically Signed By: Neil Alexander DO\.br\Date and Time Signed: 07/17/24 00:31 EDT Automated basophil %Ordered By: Jaylin Rossi on 07-16-2024 Basophils/100 WBC (Bld) 0.5 % Normal . [facility] Comment on above: Performed By: #### H S TROP, CBC, CK, BMP, PT, DDIMER, BNP #### [facility] [address] Automated basophil countOrde red By: Jaylin Rossi on 07-16-2024 Basophils (Bld) [#/Vol] 0.0 10*3/uL Normal 0.0-0.2 [facility] Comment on above: Result Comment: PERF ORMED BY: [facility] [address] [place] [address] PATHOLOGIST [employer] TOPSTITCHER CHER LAGUNA M.D. Performed By: #### H S TROP, CBC, CK, BMP, PT, DDIMER, BNP #### [address] Automated blood monocyte cou ntOrdered By: Jaylin Rossi on 07-16-2024 Monocytes (Bld) [#/Vol] 0.4 10*3/uL Normal 0.0-0.8 [facility] Comment on above: Performed By: #### H S TROP, CBC, CK, BMP, PT, DDIMER, BNP #### [address] Automated eosinophil %Ordere d By: Jaylin Rossi on 07-16-2024 Eosinophils/100 WBC (Bld) 1.4 % Normal . [facility] Comment on above: Performed By: #### H S TROP, CBC, CK, BMP, PT, DDIMER, BNP #### [address] Automated eosinophil countOr dered By: Jaylin Rossi on 07-16-2024 Eosinophils (Bld) [#/Vol] 0.1 10*3/uL Normal 0.0-0.45 [facility] Comment on above: Performed By: #### H S TROP, CBC, CK, BMP, PT, DDIMER, BNP #### [address] Automated monocyte %Ordered By: Jaylin Rossi on 07-16-2024 Monocytes/100 WBC (Bld) 8.3 % Normal . [facility] Comment on above: Performed By: #### H S TROP, CBC, CK, BMP, PT, DDIMER, BNP #### [address] Automated neutrophil %Ordere d By: Jaylin Rossi on 07-16-2024 Neutrophils/100 WBC (Bld) 73.4 % Normal . [facility] Comment on above: Performed By: #### H S TROP, CBC, CK, BMP, PT, DDIMER, BNP #### [facility] [address] BNP ser/plasOrdered By: Bharat Rossi on 07-16-2024 Natriuretic peptide B (Bld) [Mass/Vol] 51.0 pg/mL Normal 5-100 [facility] Comment on above: Result Comment: PERF ORMED BY: [place] [address] PATHOLOGIST [employer] TOPSTITCHER CHER LAGUNA M.D. Performed By: #### H S TROP, CBC, CK, BMP, PT, DDIMER, BNP #### [address] Basic Metabolic Panelon 06-24 Creatinine Clr Calc Pharmacy 84.56 Normal [facility] Comment on above: Result Comment: PERF ORMED BY: [place] [address] PATHOLOGIST [employer] TOPSTITCHER CHER LAGUNA M.D. Performed By: #### H S TROP, CBC, CK, BMP, PT, DDIMER, BNP #### [address] GFR/1.73 sq M.predicted MDRD (S/P/Bld) [Vol rate/Area] mL/min/{1.73_m2} Normal [facility] Comment on above: Performed By: #### H S TROP, CBC, CK, BMP, PT, DDIMER, BNP #### [address] angio cheston 07-16-2024 CT angio chest [facility] [place] [address] CT Scan Report Signed Patient: Hosea Alvarez MR#: [id number] : 1970 Acct:[id number] Age/Sex: 53 / M ADM Date: 07/16/24 Loc: ER Room: Type: [facility] ER Attending Dr: Copies to: Jaylin Rossi MD Ordering Provider: Jaylin Rossi MD Date of Service: 07/16/24 CT/CT angio chest: R chest pain, hx thoracic aneurysm per pt CTA CHEST WITH CONTRAST CLINICAL HISTORY: Chest pain on the right. COMPARISON: None TECHNIQUE: Spiral images were obtained through the chest following intravenous administration of 90 mL of Isovue-370. Images were reviewed using both narrow and wide window settings. Sagittal, coronal and 3 D volume-rendered reconstructions were performed and reviewed. This CT exam was performed using one or more following dose reduction techniques: Automated exposure control, adjustment of the mA and/or kV according to patient size, or use of iterative reconstruction technique. FINDINGS: The heart is top normal in size. There is no pericardial effusion. Coronary artery disease is noted. There is ascending aortic aneurysmal dilatation t approximately 4.5 cm. No dissection is seen.. There is adequate opacification of the pulmonary arteries. No emboli are identified. No pathologic lymphadenopathy is seen. There are small endplate spurs. There is minimal atelectasis or scarring. There is no consolidation, effusion or discrete soft tissue nodules. No pneumothorax is seen. Limited cuts through the upper abdomen show a left renal cyst. CT/CT angio chest IMPRESSION: ASCENDING AORTIC ANEURYSM WITH NO DISSECTION. NO CT EVIDENCE OF PULMONARY EMBOLISM. NO ACUTE INTRATHORACIC FINDINGS. Impression dictated by: Irma Ortiz M.D.07/16/2024 3:18 PM Dictation Location: [place] [address] Transcribed By: [facility] 07/16/241517 Dictated By: Irma Ortiz MD 07/16/24 151 Signed By: 07/16/24 1518 Normal [facility] Calcium [Mass/volume] in Ser um or PlasmaOrdered By: Jaylin Rossi on 07-16-2024 Calcium [Mass/Vol] 8.4 mg/dL Low 8.6-10.3 [facility] Comment on above: Performed By: #### H S TROP, CBC, CK, BMP, PT, DDIMER, BNP #### [facility] [address] Carbon dioxide, total [Moles /volume] in Serum or PlasmaOrdered By: Jaylin Rossi on 07-16-2024 CO2 [Moles/Vol] 22.7 mmol/L Normal 21.0-31.0 [facility] Comment on above: Performed By: #### H S TROP, CBC, CK, BMP, PT, DDIMER, BNP #### [address] Chloride [Moles/volume] in S karolyn or PlasmaOrdered By: Jaylin Rossi on 07-16-2024 Chloride [Moles/Vol] 103 mmol/L Normal 98-107 [facility] Comment on above: Performed By: #### H S TROP, CBC, CK, BMP, PT, DDIMER, BNP #### [address] Complete Blood Count Auto Di ffon 07-16-2024 Mean Corpuscular HGB Conc 33.7 g/dL Normal 32.5-35.6 [facility] Comment on above: Performed By: #### H S TROP, CBC, CK, BMP, PT, DDIMER, BNP #### [address] Monocytes/100 WBC (Bld) 18.93 % Normal 0.00-20.00 [facility] Comment on above: Performed By: #### H S TROP, CBC, CK, BMP, PT, DDIMER, BNP #### [address] NRBC% 0.2 /100{WBC} Normal 0-0.5 [facility] Comment on above: Performed By: #### H S TROP, CBC, CK, BMP, PT, DDIMER, BNP #### [address] Creatine kinase [Enzymatic a ctivity/volume] in Serum or PlasmaOrdered By: Jaylin Rossi on 07-16-2024 CK [Catalytic activity/Vol] 99 U/L Normal 30-223 [facility] Comment on above: Performed By: #### H S TROP, CBC, CK, BMP, PT, DDIMER, BNP #### [address] Creatinine [Mass/volume] in Serum or PlasmaOrdered By: Jaylin Rossi on 07-16-2024 Creatinine [Mass/Vol] 1.11 mg/dL Normal 0.70-1.30 [facility] Comment on above: Performed By: #### H S TROP, CBC, CK, BMP, PT, DDIMER, BNP #### [place] [id number] [facility] D-Dimer High Sensitivityon 1 D-Dimer High Sensitivity < 200 Normal 0-243 [facility] Comment on above: Result Comment: The reference range for D-dimer is <243 ng/mL D-dimer units. D-dimer results must be used in conjunction with a clinical pretest probability (PTP) assessment model for deep vein thrombosis (DVT) and pulmonary embolism (PE). Results <230 ng/mL d-dimer units can be used as a negative predictor in patients with low or moderate probability for DVT/PE. Results above the exclusion threshold of 230 ng/ml D-dimer units for DVT/PE may indicate the need for further diagnostic testing. D-Dimer can be increased in hospitalized patients due to co-morbid conditions. A hematocrit value greater than 55% may lead to inaccurate results in coagulation testing. Patients having hematocrit values >55% require a special collection tube for coagulation studies. Please contact the laboratory at [phone] for redraw instructions. PERFORMED BY: [place] [address] PATHOLOGIST ZIGZAG TOPSTITCHER CHER LAGUNA M.D. Performed By: #### H S TROP, CBC, CK, BMP, PT, DDIMER, BNP ####[place] [id number] [facility] ECG 12 lead ECGon 07-16-2024 ECG 12 lead ECG [facility] [place] [address] [place] [address] Electrocardiograph Report Signed Patient: Hosea Alvarez MR#: [id number] : 1970 Acct:[id number] Age/Sex: 53 / M ADM Date: 07/16/24 Loc: ER Room: Type: [facility] ER Attending Dr: Ordering Provider: Jaylin Rossi MD Date of Service: 07/16/24 ECG/ECG 12 lead ECG: Chest Pain Copies to: Test Reason : Blood Pressure : 109/68 mmHG Vent. Rate : 67 BPM Atrial Rate : 67 BPM P-R Int : 180 ms QRS Dur : 96 ms QT Int : 362 ms P-R-T Axes : 38 -20 1 degrees QTcB Int : 382 ms Normal sinus rhythm lateral ST elevation, similar to prior 07/14/[address] dpression lead III, similar to prior 07/14/24 Abnormal ECG Confirmed by Jaylin Rossi MD ([id number]) on 07/16/2024 3:46:07 PM Referred By: Electronically Signed By: Jaylin Rossi MD Transcribed By: MUS Signed By Jaylin Rossi MD 06/24 01/14 [address] [facility] ED Clinical Summaryon 2023 ED Clinical Summary ED Clinical Summary [place] [id number] ED Clinical Summary Person Information Name: HOSEA ALVAREZ/[facility] Age: 53 Years : 1970 Sex: Male Language: Zimbabwean PCP: Yang VALENCIA MD Marital Status: Single Visit Id: Visit Reason: Anxiety; PANIC ATTACK Speciality: Acuity: 4 Enc Type: Emergency Med Service: Emergency Arrival: 07/16/2024 21:11:22 Discharge: 07/16/2024 23:08:43 LOS: 000 01:57 Checkin: 07/16/2024 21:11:22 Checkout: 07/16/2024 23:08:43 Dispo Type: Home (Routine DC) EVENTS: Event Name Event Status Request Date/Time Start Date/Time Complete Date/Time Arrive Complete 07/16/2024 21:11:22 07/16/2024 21:11:22 07/16/2024 21:11:22 Document Home Meds Request 07/16/2024 21:11:22 Triage Complete 07/16/2024 21:11:22 07/16/2024 21:22:36 07/16/2024 21:22:36 No Visitors Request 07/16/2024 21:12:57 Registration Complete 07/16/2024 21:14:20 07/16/2024 21:14:20 07/16/2024 21:14:20 Reg Complete Request 07/16/2024 21:14:20 Reg Bed Request Complete 07/16/2024 21:14:20 07/16/2024 21:14:20 07/16/2024 21:14:20 Bed Assign Complete 07/16/2024 21:18:06 07/16/2024 21:18:06 07/16/2024 21:18:06 Dr Exam Complete 07/16/2024 21:18:06 07/16/2024 21:21:08 07/16/2024 21:21:08 RN Exam Complete 07/16/2024 21:18:06 07/16/2024 21:58:48 07/16/2024 21:58:48 Registration Complete 07/16/2024 21:21:08 07/16/2024 21:26:27 07/16/2024 21:26:27 Consult Request 07/16/2024 22:07:25 Discharge Complete 07/16/2024 22:55:32 07/16/2024 23:08:48 07/16/2024 23:08:48 Transfer Complete 07/16/2024 23:08:48 07/16/2024 23:08:48 07/16/2024 23:08:48 ADDRESS: RETURN MAIL [address] [place] [address] PHYS DOC NOTES: MEDICAL INFORMATION: Prescriptions Given: Medications to Continue with No Changes Other Medications lisinopril (lisinopril 20 mg Tab) 1 Tablets By Mouth every day. metoprolol (metoprolol 25 mg ER Tab) 1 Tablets By Mouth every day. metoprolol (Toprol XL 25 mg Tab-ER) 1 Tablets By Mouth every day. Refills: 0. PATIENT EDUCATION INFORMATION: Instructions: Caring for Your Mental Health Follow up: With: Address: When: [facility] In 3 days 07/19/2024 Comments: You have an appointment at the [facility] tomorrow at 10 AM. With: Address: When: Yang VALENCIA [address] [place], [place] [id number] [facility] () In 3 days 07/19/2024 Comments: Call the office of your primary care doctor to arrange for follow-up within the above-stated timeframe. Follow-up with your primary care doctor about this ED visit. You should review your labs, imaging, and diagnoses from this ED visit with your primary care physician. There are occasionally non-emergent findings that require additional follow-up after your ED visit. If you were prescribed medications you should discuss possible side-effects and drug interactions with your pharmacist. Call 911 or go to the nearest Emergency Department if you develop any new or worsening symptoms. DIAGNOSIS: Anxiety Normal [facility] ED Note-Nursingon 07-16-2024 ED Note-Nursing ED Note-Nursing this RN contacted [facility] at approx [phone]. this RN gave pt report to Lynette at [facility]. pt requesting to speak to [facility], denies SI and HI. Lynette transferred to portable phone to talk with pt at this time. Lynette called this RN back at approx [phone]. pt has set appointment at 1000 tomorrow at the [facility]. pt verbalizes understanding and denies further needs or questions at this time. Normal [facility] ED Patient Summaryon 024 ED Patient Summary ED Patient Summary [place] [id number] Patient Discharge Instructions Person Information Name: HOSEA ALVAREZ Age: 53 Years Arrival Date: 07/16/2024 21:11:22 Discharge Diagnosis: Anxiety Primary Care Physician: Yang VALENCIA MD Provider Information Primary Provider: Neil Alexander DO Advanced Bottle Washer Machine:None The exam and treatment you received in the Emergency Department were for an urgent problem and are not intended as complete care. It is important that you follow up with a doctor, nurse practitioner, or physician???s community program assistant for ongoing care. If your symptoms become worse or you do not improve as expected and you are unable to reach your usual health care provider, you should return to the Emergency Department. We are available 24 hours a day. HOSEA ALVAREZ has been given the following list of patient education materials, prescriptions and follow-up instructions: Follow-up Instructions: With: Address: When: [facility] In 3 days 07/19/2024 Comments: You have an appointment at the [facility] tomorrow at 10 AM. With: Address: When: Yang VALENCIA [address] [place], [place] [id number] Business (1) In 3 days 07/19/2024 Comments: Call the office of your primary care doctor to arrange for follow-up within the above-stated timeframe. Follow-up with your primary care doctor about this ED visit. You should review your labs, imaging, and diagnoses from this ED visit with your primary care physician. There are occasionally non-emergent findings that require additional follow-up after your ED visit. If you were prescribed medications you should discuss possible side-effects and drug interactions with your pharmacist. Call 911 or go to the nearest Emergency Department if you develop any new or worsening symptoms. In the event that this physician does not participate in your insurance network, please consult with your insurance company to find a nearby participating provider. Patient Education Materials: Caring for Your Mental Health A MESSAGE TO ALL PATIENTS REGARDING OPIOIDS PRESCRIPTION OPIOIDS: WHAT YOU NEED TO KNOW Prescription opioids can be used to help relieve [id number] pain and are often prescribed following a surgery or injury, or for certain health conditions. These medications can be an important part of the treatment but also come with serious risks. It is important to work with your healthcare provider to make sure you are getting the safest, most effective care. WHAT ARE THE RISKS AND SIDE EFFECTS OF OPIOID USE? Prescription opioids carry serious risks of addiction and overdose, especially with prolonged use. An opioid overdose, often marked by slowed breathing, can cause sudden . The use of prescription opioids can have a number of side effects as well, even when taken as directed: ??? Tolerance???meaning you might need to take more of the medication for the same pain relief ??? Physical dependence???meaning you have symptoms of withdrawal when a medication is stopped ??? Increased sensitivity to pain ??? Constipation ??? Nausea, vomiting, and dry mouth ??? Sleepiness and dizziness ??? Confusion ??? Depression ??? Low levels of testosterone that can result in lower sex drive, energy, and strength ??? Itching and sweating RISKS ARE GREATER WITH: ??? History of drug misuse, substance use disorder, or overdose ??? Mental health conditions (such as depression or anxiety) ??? Sleep apnea ??? Older age (65 years and older) ??? Avoid alcohol while taking prescription opioids. Also, unless specifically advised by your health care provider, medications to avoid include: ??? Benzodiazepines (such as Xanax or Valium) ??? Muscle relaxants (such as Soma or Flexeril) ??? Hypnotics (such as Ambien or Lunesta) ??? Other prescription opioids KNOW YOUR OPTIONS Talk to your health care provider about ways to manage your pain that don???t involve prescription opioids. Some of these options may actually work better and have fewer risks and side effects. Options may include: ??? Pain relievers such as acetaminophen, ibuprofen, and naproxen ??? Some medication that are also used for depression or seizures ??? Physical therapy and exercise ??? Cognitive behavioral therapy, a psychological, goal-directed approach, in which patients learn how to modify physical, behavioral, and emotional triggers of pain and stress. IF YOU ARE PRESCRIBED OPIOIDS FOR PAIN: ??? Never take opioids in greater amounts or more often than prescribed. ??? Follow up with your primary health care provider. o Work together to create a plan on how to manage your pain. o Talk about ways to help manage your pain that don???t involve prescription opioids. o Talk about any and all (more content not included)... Normal [facility] Erythrocyte distribution wid th [Ratio] by Automated countOrdered By: Jaylin Rossi on 07-16-2024 Erythrocyte distribution width (RBC) [Ratio] 13.0 % Normal 12.0-14.8 [facility] Comment on above: Performed By: #### H S TROP, CBC, CK, BMP, PT, DDIMER, BNP #### [facility] [address] [place] [address] [place] Erythrocytes [#/volume] in B lood by Automated countOrdered By: Jaylin Rossi on 07-16-2024 RBC (Bld) [#/Vol] 4.44 10*6/uL Normal 3.90-5.60 [facility] Comment on above: Performed By: #### H S TROP, CBC, CK, BMP, PT, DDIMER, BNP #### [facility] [address] Fibrin D-dimer [Presence] in Platelet poor plasma by Latex agglutinationOrdered By: Jaylin Rossi on 07-16-2024 Fibrin D-dimer LA Ql (PPP) < 200 ng/mL 0-243 [facility] Comment on above: The reference range for D-dimer is <243 ng/mL D-dimer units.D-dimer results must be used in conjunction with a clinicalpretest probability (PTP) assessment model for deep veinthrombosis (DVT) and pulmonary embolism (PE). Results <230ng/mL d-dimer units can be used as a negative predictor inpatients with low or moderate probability for DVT/PE.Results above the exclusion threshold of 230 ng/ml D-dimerunits for DVT/PE may indicate the need for furtherdiagnostic testing.D-Dimer can be increased in hospitalized patients due toco-morbid conditions.A hematocrit value greater than 55% may lead to inaccurate results in coagulation testing. Patients having hematocrit values >55% require a special collection tube for coagulation studies. Please contact the laboratory at [phone] for redraw instructions. Glucose [Mass/volume] in Ser um or PlasmaOrdered By: Jaylin Rossi on 07-16-2024 Glucose [Mass/Vol] 122 mg/dL High 70-100 [facility] Comment on above: ADA recommended refe rence rangeRandom Glucose Reference Range is dependent on time and content of last meal. Glucose of more than 200 mg/dL in a nonstressed, ambulatory subject supports the diagnosis of Diabetes Mellitus. Result Comment: [place] Glucose Reference Range is dependent on time and content of last meal. Glucose of more than 200 mg/dL in a nonstressed, ambulatory subject supports the diagnosis of Diabetes Mellitus. ADA recommended reference range Performed By: #### H S TROP, CBC, CK, BMP, PT, DDIMER, BNP #### [facility] [address] Hematocrit [Volume Fraction] of Blood by Automated countOrdered By: Jaylin Rossi on 07-16-2024 Hematocrit (Bld) [Volume fraction] 38.3 % Low 38.8-50.0 [facility] Comment on above: Performed By: #### H S TROP, CBC, CK, BMP, PT, DDIMER, BNP #### [facility] [address] Hemoglobin [Mass/volume] in BloodOrdered By: Jaylin Rossi on 07-16-2024 Hemoglobin (Bld) [Mass/Vol] 12.9 g/dL Low 13.0-17.0 [facility] Comment on above: Performed By: #### H S TROP, CBC, CK, BMP, PT, DDIMER, BNP #### [facility] [address] INR in Platelet poor plasma by Coagulation assayOrdered By: Jaylin Rossi on 07-16-2024 INR Coag (PPP) [Relative time] 0.9 {INR} Normal [facility] Comment on above: INR Therapeutic Rang e A) Pre- and Peroperative OAT started two weeks before surgery. NOT HIP SURGERY: 1.5 - 2.5 HIP SURGERY: 2 - 3B) Primary and secondary prevention of venous THROMBOSIS: 2 - 3C) Active venous thrombosis, pulmonary embolismand prevention of recurrent venous thrombosis: 2 - 3D) Prevention of arterial thromboembolismincluding patients with mechanical heart valves: 3 - 4.5 Result Comment: INR Therapeutic Range A) Pre- and Peroperative OAT started two weeks before surgery. NOT HIP SURGERY: 1.5 - 2.5 HIP SURGERY: 2 - 3 B) Primary and secondary prevention of venous THROMBOSIS: 2 - 3 C) Active venous thrombosis, pulmonary embolism and prevention of recurrent venous thrombosis: 2 - 3 D) Prevention of arterial thromboembolism including patients with mechanical heart valves: 3 - 4.5 Performed By: #### H S TROP, CBC, CK, BMP, PT, DDIMER, BNP ####[facility] [id number] Leukocytes [#/volume] correc sebastián for nucleated erythrocytes in Blood by Automated counOrdered By: Jaylin Rossi on 07-16-2024 WBC corrected for nucl RBC Auto (Bld) [#/Vol] 4.3 10*3/uL 4.1-10.5 [facility] Leukocytes [#/volume] in Blo od by Automated countOrdered By: Jaylin Rossi on 07-16-2024 WBC (Bld) [#/Vol] 4.3 10*3/uL Normal 4.1-10.5 [facility] Comment on above: Performed By: #### H S TROP, CBC, CK, BMP, PT, DDIMER, BNP #### [address] Lymphocytes [#/volume] in Bl ood by Automated countOrdered By: Jaylin Rossi on 07-16-2024 Lymphocytes (Bld) [#/Vol] 0.7 10*3/uL Low 1.00-4.8 [facility] Comment on above: Performed By: #### H S TROP, CBC, CK, BMP, PT, DDIMER, BNP #### [address] Lymphocytes/100 leukocytes i n Blood by Automated countOrdered By: Jaylin Rossi on 07-16-2024 Lymphocytes/100 WBC (Bld) 16.4 % Normal . [facility] Comment on above: Performed By: #### H S TROP, CBC, CK, BMP, PT, DDIMER, BNP #### [address] MCH [Entitic mass] by Automa sebastián countOrdered By: Jaylin Rossi on 07-16-2024 MCH (RBC) [Entitic mass] 29.0 pg Normal 27.5-35.2 [facility] Comment on above: Performed By: #### H S TROP, CBC, CK, BMP, PT, DDIMER, BNP #### [address] MCHC Auto (RBC) [Mass/Vol]Or dered By: Jaylin Rossi on 07-16-2024 MCHC (RBC) [Mass/Vol] 33.7 g/dL 32.5-35.6 [facility] MCV [Entitic volume] by Auto mated countOrdered By: Jaylin Rossi on 07-16-2024 MCV (RBC) [Entitic vol] 86.2 fL Normal 83.5-101 [facility] Comment on above: Performed By: #### H S TROP, CBC, CK, BMP, PT, DDIMER, BNP #### [place] [address] [place] Monocyte distribution width [Entitic volume] in Blood by AutomatedOrdered By: Jaylin Rossi on 07-16-2024 Monocyte distribution width Auto (Bld) [Entitic vol] 18.93 % 0.00-20.00 [facility] Neutrophils [#/volume] in Bl ood by Automated countOrdered By: Jaylin Rossi on 07-16-2024 Neutrophils (Bld) [#/Vol] 3.1 10*3/uL Normal 1.8-7.7 [facility] Comment on above: Performed By: #### H S TROP, CBC, CK, BMP, PT, DDIMER, BNP #### [facility] [address] [place] [address] No Panel InformationOrdered By: Jaylin Rossi on 07-16-2024 Estimated GFR (CKD-EPI) > 60.0 mL/Min [facility] Creatinine Clearance (Chem 84.56 [facility] Nucleated erythrocytes [Pres ence] in Blood by Automated countOrdered By: Jaylin Rossi on 07-16-2024 Nucleated RBC Auto Ql (Bld) 0.2 /100{WBC} 0-0.5 [facility] Platelet mean volume [Entiti c volume] in Blood by Automated countOrdered By: Jaylin Rossi on 07-16-2024 Platelet mean volume (Bld) [Entitic vol] 9.5 fL Normal 6.6-10.1 [facility] Comment on above: Performed By: #### H S TROP, CBC, CK, BMP, PT, DDIMER, BNP #### [facility] [address] [place] [address] [place] Platelets [#/volume] in Bloo d by Automated countOrdered By: Jaylin Rossi on 07-16-2024 Platelets (Bld) [#/Vol] 141 10*3/uL Low 150-450 [facility] Comment on above: Performed By: #### H S TROP, CBC, CK, BMP, PT, DDIMER, BNP #### [address] Potassium [Moles/volume] in Serum or PlasmaOrdered By: Jaylin Rossi on 07-16-2024 Potassium [Moles/Vol] 4.3 mmol/L Normal 3.5-5.1 [facility] Comment on above: Performed By: #### H S TROP, CBC, CK, BMP, PT, DDIMER, BNP #### [facility] [address] Prothrombin time (PT)Ordered By: Jaylin Rossi on 07-16-2024 PT Coag (PPP) [Time] 10.9 s Normal 9.0-12.9 [facility] Comment on above: A hematocrit value g reater than 55% may lead to inaccurate results in coagulation testing. Patients having hematocrit values >55% require a special collection tube for coagulation studies. Please contact the laboratory at [phone] for redraw instructions. Result Comment: A he matocrit value greater than 55% may lead to inaccurate results in coagulation testing. Patients having hematocrit values >55% require a special collection tube for coagulation studies. Please contact the laboratory at [phone] for redraw instructions. Performed By: #### H S TROP, CBC, CK, BMP, PT, DDIMER, BNP ####[facility] Serum or plasma anion gap de terminationOrdered By: Jaylin Rossi on 07-16-2024 Anion gap [Moles/Vol] 14.6 mmol/L Normal 6.0-15.0 [facility] Comment on above: Performed By: #### H S TROP, CBC, CK, BMP, PT, DDIMER, BNP #### [facility] [address] Sodium [Moles/volume] in Ser um or PlasmaOrdered By: Jaylin Rossi on 07-16-2024 Sodium [Moles/Vol] 136 mmol/L Normal 136-145 [facility] Comment on above: Performed By: #### H S TROP, CBC, CK, BMP, PT, DDIMER, BNP #### [facility] [address] Troponin I High Sensitivityo n 07-16-2024 Troponin I High Sensitivity 3.3 pg/mL Normal 0.0-20.0 [facility] Comment on above: Result Comment: PERF ORMED BY: [place] [address] PATHOLOGIST [employer] TOPSTITCHER CHER LAGUNA M.D. Performed By: #### H S TROP #### [facility] [address] [place] [address] Troponin I High Sensitivity 3.3 pg/mL Normal 0.0-20.0 [facility] Comment on above: Result Comment: PERF ORMED BY: [place] [address] PATHOLOGIST [employer] TOPSTITCHER CHER LAGUNA M.D. Performed By: #### H S TROP, CBC, CK, BMP, PT, DDIMER, BNP ####[facility] [address] [place] [address] Troponin I.cardiac [Mass/vol ume] in Serum or Plasma by Detection limit <= 0.01 ng/Ordered By: Jaylin Rossi on 07-16-2024 Troponin I.cardiac DL <= 0.01 ng/mL [Mass/Vol] 3.3 pg/mL 0.0-20.0 [facility] Urea nitrogen [Mass/volume] in Serum or PlasmaOrdered By: Jaylin Rossi on 07-16-2024 Urea nitrogen [Mass/Vol] 20 mg/dL Normal 7-25 [facility] Comment on above: Performed By: #### H S TROP, CBC, CK, BMP, PT, DDIMER, BNP #### [facility] [address] [place], [place] [id number] [facility] XR chest 2V*on 07-16-2024 XR chest 2V* [facility] [place] [address] XRay Report Signed Patient: Hosea Alvarez MR#: [id number] : 1970 Acct:[id number] Age/Sex: 53 / M ADM Date: 07/16/24 Loc: ER Room: Type: [facility] ER Attending Dr: Copies to: Jaylin Rossi MD Ordering Provider: Jaylin Rossi MD Date of Service: 07/16/24 XR/XR chest 2V*: Chest Pain Plain film chest 2 view HISTORY: Chest pain. COMPARISON: 05/10/2019 FINDINGS: SUPPORT DEVICES: None POSTSURGICAL CHANGES: None HEART: Within normal limits PULMONARY LIZZETTE: Within normal limits MEDIASTINUM: Unremarkable LUNGS AND PLEURA: No acute lung process, pleural effusion or pneumothorax identified. BONY STRUCTURES: Scoliosis and degenerative change ADDITIONAL FINDINGS None XR/XR chest 2V* IMPRESSION: No acute process. Impression dictated by: Yang Rogers M.D.07/16/2024 1:14 PM Dictation Location: [place] [address] Transcribed By: SOL 07/16/24 1314 Dictated By: Yang Rogers DO 07/16/24 1313 Signed By: 07/16/24 1314 Normal [facility] Alanine aminotransferase [En zymatic activity/volume] in Serum or PlasmaOrdered By: Gustavo Mcclelland on 07-14-2024 ALT [Catalytic activity/Vol] 23 U/L Normal 7-52 [facility] Comment on above: Performed By: #### C BC, BMP, LIPASE, HEPATIC ####[facility] Albumin [Mass/volume] in Ser um or Plasma by Bromocresol green (BCG) dye binding methoOrdered By: Gustavo Mcclelland on 07-14-2024 Albumin BCG dye [Mass/Vol] 4.5 g/dL 3.5-5.7 [facility] Alkaline phosphatase [Enzyma tic activity/volume] in Serum or PlasmaOrdered By: Gustavo Mcclelland on 07-14-2024 ALP [Catalytic activity/Vol] 53 U/L Normal 34-104 [facility] Comment on above: Performed By: #### C BC, BMP, LIPASE, HEPATIC ####[place] [address] [place] [address] [facility] Aspartate aminotransferase [ Enzymatic activity/volume] in Serum or PlasmaOrdered By: Gustavo Mcclelland on 07-14-2024 AST [Catalytic activity/Vol] 19 U/L Normal 13-39 [facility] Comment on above: Performed By: #### C BC, BMP, LIPASE, HEPATIC ####[facility] [place] [id number] [place] Automated basophil %Ordered By: Gustavo Mcclelland on 07-14-2024 Basophils/100 WBC (Bld) 0.6 % Normal . [facility] Comment on above: Performed By: #### C BC, BMP, LIPASE, HEPATIC ####[address] Automated basophil countOrde red By: Gustavo Mcclelland on 07-14-2024 Basophils (Bld) [#/Vol] 0.0 10*3/uL Normal 0.0-0.2 [facility] Comment on above: Result Comment: PERF ORMED BY: [facility] [address] [place] [address] PATHOLOGIST [employer] TOPSTITCHER CHER LAGUNA M.D. Performed By: #### C BC, BMP, LIPASE, HEPATIC ####[address] Automated blood monocyte cou ntOrdered By: Gustavo Mcclelland on 07-14-2024 Monocytes (Bld) [#/Vol] 0.3 10*3/uL Normal 0.0-0.8 [facility] Comment on above: Performed By: #### C BC, BMP, LIPASE, HEPATIC ####[address] Automated eosinophil %Ordere d By: Gustavo Mcclelland on 07-14-2024 Eosinophils/100 WBC (Bld) 2.1 % Normal . [facility] Comment on above: Performed By: #### C BC, BMP, LIPASE, HEPATIC ####[address] Automated eosinophil countOr dered By: Gustavo Mcclelland on 07-14-2024 Eosinophils (Bld) [#/Vol] 0.1 10*3/uL Normal 0.0-0.45 [facility] Comment on above: Performed By: #### C BC, BMP, LIPASE, HEPATIC ####[address] Automated monocyte %Ordered By: Gustavo Mcclelland on 07-14-2024 Monocytes/100 WBC (Bld) 7.0 % Normal . [facility] Comment on above: Performed By: #### C BC, BMP, LIPASE, HEPATIC ####[address] Automated neutrophil %Ordere d By: Gustavo Mcclelland on 07-14-2024 Neutrophils/100 WBC (Bld) 60.5 % Normal . [facility] Comment on above: Performed By: #### C BC, BMP, LIPASE, HEPATIC ####[address] Basic Metabolic Panelon 06-24 Creatinine Clr Calc Pharmacy 83.35 Normal [facility] Comment on above: Performed By: #### C BC, BMP, LIPASE, HEPATIC ####[address] GFR/1.73 sq M.predicted MDRD (S/P/Bld) [Vol rate/Area] mL/min/{1.73_m2} Normal [facility] Comment on above: Performed By: #### C BC, BMP, LIPASE, HEPATIC ####[address] Bilirubin Test strip Ql (U)O rdered By: Gustavo Mcclelland on 07-14-2024 Bilirubin Ql (U) Negative Negative [facility] Bilirubin.direct [Mass/volum e] in Serum or PlasmaOrdered By: Gustavo Mcclelland on 07-14-2024 Bilirubin.direct [Mass/Vol] 0.10 mg/dL 0.03-0.18 [facility] Bilirubin.total [Mass/volume ] in Serum or PlasmaOrdered By: Gustavo Mcclelland on 07-14-2024 Bilirubin [Mass/Vol] 0.4 mg/dL Normal 0.3-1.0 [facility] Comment on above: Performed By: #### C BC, BMP, LIPASE, HEPATIC ####[address] abdomen pelvis w conon CT abdomen pelvis w con [facility] [place] [address] [place] [address] CT Scan Report Signed Patient: Hosea Alvarez MR#: [id number] : 1970 Acct:[id number] Age/Sex: 53 / M ADM Date: 07/14/24 Loc: ER Room: Type: [facility] ER Attending Dr: Copies to: Gustavo Mcclelland DO Ordering Provider: Gustavo Mcclelland DO Date of Service: 07/14/24 CT/CT abdomen pelvis w con: Abdominal Pain CT Abdomen and Pelvis withcontrast TECHNIQUE: Axial imaging with 2-D reconstruction.90 cc of Isovue-300. The CT exam was performed using one or more the following dose reduction techniques: Automated exposure control, adjustment of the MA and/or Kv according to patient size, or use of the iterative reconstruction technique. COMPARISON: None History: Abdominal pain with constipation. Nausea and vomiting LIMITATIONS: None LOWER THORAX Unremarkable LIVER: Mild hepatic steatosis. GALLBLADDER: No gallbladder abnormality identified. BILE DUCTS: No dilatation SPLEEN: Unremarkable PANCREAS: Unremarkable ADRENAL GLANDS: Unremarkable KIDNEYS:Bilateral renal cysts measuring up to 3.3 cm. Indeterminate hyperdense lesion posterior portion of the midpole the right kidney. Hounsfield unit of 36. This is exophytic measuring up to 17 mm. AORTA: No abdominal aortic aneurysm identified. RETROPERITONEUM: No significant retroperitoneal abnormalities identified. MESENTERY:Unremarkable SMALL BOWEL: The small bowel loops are nondistended. APPENDIX: The appendix is normal. COLON: Unremarkable URINARY BLADDER: Urinary bladder is unremarkable. REPRODUCTIVE SYSTEM: Reproductive structures are unremarkable. PNEUMOPERITONEUM: None PERITONEAL FLUID:None BONY STRUCTURES: Unremarkable ABDOMINAL WALL: Unremarkable CT/CT abdomen pelvis w con IMPRESSION: No acute findings. No bowel obstruction. Bilateral renal cysts. An indeterminate 17 mm exophytic lesion posterior portion midpole right kidney. Further assessment with contrasted MRI of kidneys recommended. Impression dictated by: Yang Rogers M.D.07/14/2024 2:13 PM Dictation Location: [place] [address] Transcribed By: [facility] 07/14/24 1413 Dictated By: Yang Rogers DO 07/14/24 1409 Signed By: 07/14/24 1413 Normal [facility] Calcium [Mass/volume] in Ser um or PlasmaOrdered By: Gustavo Mcclelland on 07-14-2024 Calcium [Mass/Vol] 9.4 mg/dL Normal 8.6-10.3 [facility] Comment on above: Performed By: #### C BC, BMP, LIPASE, HEPATIC ####[address] Carbon dioxide, total [Moles /volume] in Serum or PlasmaOrdered By: Gustavo Mcclelland on 07-14-2024 CO2 [Moles/Vol] 21.7 mmol/L Normal 21.0-31.0 [facility] Comment on above: Performed By: #### C BC, BMP, LIPASE, HEPATIC ####[address] Chloride [Moles/volume] in S karolyn or PlasmaOrdered By: Gustavo Mcclelland on 07-14-2024 Chloride [Moles/Vol] 102 mmol/L Normal 98-107 [facility] Comment on above: Performed By: #### C BC, BMP, LIPASE, HEPATIC ####[address] Color of Urine by AutoOrdere d By: Gustavo Mcclelland on 07-14-2024 Color (U) Colorless Normal Yellow [facility] Comment on above: Order Comment: Name Collection Type:: Clean-Voided Midstream Performed By: #### U A ####[address] Complete Blood Count Auto Di ffon 07-14-2024 Mean Corpuscular HGB Conc 33.9 g/dL Normal 32.5-35.6 [facility] Comment on above: Performed By: #### C BC, BMP, LIPASE, HEPATIC ####[address] Monocytes/100 WBC (Bld) 19.18 % Normal 0.00-20.00 [facility] Comment on above: Performed By: #### C BC, BMP, LIPASE, HEPATIC ####[address] NRBC% 0.2 /100{WBC} Normal 0-0.5 [facility] Comment on above: Performed By: #### C BC, BMP, LIPASE, HEPATIC ####[facility] Creatinine [Mass/volume] in Serum or PlasmaOrdered By: Gustavo Mcclelland on 07-14-2024 Creatinine [Mass/Vol] 1.12 mg/dL Normal 0.70-1.30 [facility] Comment on above: Performed By: #### C BC, BMP, LIPASE, HEPATIC ####[facility] [address] [place] [id number] [facility] ECG 12 lead ECGon 07-14-2024 ECG 12 lead ECG [facility] [place] [address] [place] [address] Electrocardiograph Report Signed Patient: Hosea Alvarez MR#: [id number] : 1970 Acct:[id number] Age/Sex: 53 / M ADM Date: 07/14/24 Loc: ER Room: Type: [facility] ER Attending Dr: Ordering Provider: Gustavo Mcclelland DO Date of Service: 07/14/24 ECG/ECG 12 lead ECG: Abdominal Pain Copies to: Test Reason : Blood Pressure : 133/100 mmHG Vent. Rate : 72 BPM Atrial Rate : 72 BPM P-R Int : 154 ms QRS Dur : 104 ms QT Int : 364 ms P-R-T Axes : 13 -16 8 degrees QTcB Int : 398 ms Normal sinus rhythm ST elevation, consider early repolarization, pericarditis, or injury Abnormal ECG When compared with ECG of 05-May-2023 19:15, No significant change was found Confirmed by GUSTAVO MCCLELLAND DO ([id number]) on 07/14/2024 5:52:11 PM Referred By: Electronically Signed By: GUSTAVO MCCLELLAND DO Transcribed By: MUS Signed By Gustavo Mcclelland DO 6792 Normal [facility] Erythrocyte distribution wid th [Ratio] by Automated countOrdered By: Gustavo Mcclelland on 07-14-2024 Erythrocyte distribution width (RBC) [Ratio] 12.9 % Normal 12.0-14.8 [facility] Comment on above: Performed By: #### C BC, BMP, LIPASE, HEPATIC ####[place] [address] [place] [id number] [facility] Erythrocytes [#/volume] in B lood by Automated countOrdered By: Gustavo Mcclelland on 07-14-2024 RBC (Bld) [#/Vol] 4.57 10*6/uL Normal 3.90-5.60 [facility] Comment on above: Performed By: #### C BC, BMP, LIPASE, HEPATIC ####[place] [id number] [facility] Glucose [Mass/volume] in Ser um or PlasmaOrdered By: Gustavo Mcclelland on 07-14-2024 Glucose [Mass/Vol] 93 mg/dL Normal 70-100 [facility] Comment on above: ADA recommended refe rence rangeRandom Glucose Reference Range is dependent on time and content of last meal. Glucose of more than 200 mg/dL in a nonstressed, ambulatory subject supports the diagnosis of Diabetes Mellitus. Result Comment: [place] Glucose Reference Range is dependent on time and content of last meal. Glucose of more than 200 mg/dL in a nonstressed, ambulatory subject supports the diagnosis of Diabetes Mellitus. ADA recommended reference range Performed By: #### C BC, BMP, LIPASE, HEPATIC ####[address] Glucose [Mass/volume] in Uri ne by Test stripOrdered By: Gustavo Mcclelland on 07-14-2024 Glucose Test strip (U) [Mass/Vol] Normal mg/dL Normal [facility] Hematocrit [Volume Fraction] of Blood by Automated countOrdered By: Gustavo Mcclelland on 07-14-2024 Hematocrit (Bld) [Volume fraction] 39.2 % Normal 38.8-50.0 [facility] Comment on above: Performed By: #### C BC, BMP, LIPASE, HEPATIC ####[place] [id number] [facility] Hemoglobin Test strip Ql (U) Ordered By: Gustavo Mcclelland on 07-14-2024 Hemoglobin Ql (U) Negative Negative [facility] Hemoglobin [Mass/volume] in BloodOrdered By: Gustavo Mcclelland on 07-14-2024 Hemoglobin (Bld) [Mass/Vol] 13.3 g/dL Normal 13.0-17.0 [facility] Comment on above: Performed By: #### C BC, BMP, LIPASE, HEPATIC ####[place] [id number] [facility] Hepatic Panelon 07-14-2024 Albumin [Mass/Vol] 4.5 g/dL Normal 3.5-5.7 [facility] Comment on above: Performed By: #### C BC, BMP, LIPASE, HEPATIC ####[address] Bilirubin,Indirect 0.3 mg/dL Normal [facility] Comment on above: Performed By: #### C BC, BMP, LIPASE, HEPATIC ####[address] Bilirubin.indirect [Mass/Vol] 0.10 mg/dL Normal 0.03-0.18 [facility] Comment on above: Performed By: #### C BC, BMP, LIPASE, HEPATIC ####[place] [id number] [facility] Ketones [Presence] in Urine by Test stripOrdered By: Gustavo Mcclelland on 07-14-2024 Ketones Ql (U) Negative Normal Negative [facility] Comment on above: Order Comment: Name Collection Type:: Clean-Voided Midstream Performed By: #### U A ####[place] [id number] [facility] Leukocyte esterase [Presence ] in Urine by Test stripOrdered By: Gustavo Mcclelland on 07-14-2024 Leukocyte esterase Test strip Ql (U) Negative Normal Negative [facility] Comment on above: Order Comment: Name Collection Type:: Clean-Voided Midstream Performed By: #### U A ####[address] Leukocytes [#/volume] correc sebastián for nucleated erythrocytes in Blood by Automated counOrdered By: Gustavo Mcclelland on 07-14-2024 WBC corrected for nucl RBC Auto (Bld) [#/Vol] 3.9 10*3/uL Low 4.1-10.5 [facility] Leukocytes [#/volume] in Blo od by Automated countOrdered By: Gustavo Mcclelland on 07-14-2024 WBC (Bld) [#/Vol] 3.9 10*3/uL Low 4.1-10.5 [facility] Comment on above: Performed By: #### C BC, BMP, LIPASE, HEPATIC ####[place] [id number] [facility] Lipase [Enzymatic activity/v olume] in Serum or PlasmaOrdered By: Gustavo Mcclelland on 07-14-2024 Lipase [Catalytic activity/Vol] 16.0 U/L Normal 11.0-82.0 [facility] Comment on above: Result Comment: PERF ORMED BY: [facility] [address] [facility] [place] [place] [address] PATHOLOGIST [employer]IGZ[employer] TOPSTITCHER CHER LAGUNA M.D. Performed By: #### C BC, BMP, LIPASE, HEPATIC ####[place] [id number] [facility] Lymphocytes [#/volume] in Bl ood by Automated countOrdered By: Gustavo Mcclelland on 07-14-2024 Lymphocytes (Bld) [#/Vol] 1.2 10*3/uL Normal 1.00-4.8 [facility] Comment on above: Performed By: #### C BC, BMP, LIPASE, HEPATIC ####[place] [id number] [place] Lymphocytes/100 leukocytes i n Blood by Automated countOrdered By: Gustavo Mcclelland on 07-14-2024 Lymphocytes/100 WBC (Bld) 29.8 % Normal . [facility] Comment on above: Performed By: #### C BC, BMP, LIPASE, HEPATIC ####[place] [id number] [place] MCH [Entitic mass] by Automa sebastián countOrdered By: Gustavo Mcclelland on 07-14-2024 MCH (RBC) [Entitic mass] 29.0 pg Normal 27.5-35.2 [facility] Comment on above: Performed By: #### C BC, BMP, LIPASE, HEPATIC ####[place] [address] MCHC Auto (RBC) [Mass/Vol]Or dered By: Gustavo Mcclelland on 07-14-2024 MCHC (RBC) [Mass/Vol] 33.9 g/dL 32.5-35.6 [facility] MCV [Entitic volume] by Auto mated countOrdered By: Gustavo Mcclelland on 07-14-2024 MCV (RBC) [Entitic vol] 85.7 fL Normal 83.5-101 [facility] Comment on above: Performed By: #### C BC, BMP, LIPASE, HEPATIC ####[address] Monocyte distribution width [Entitic volume] in Blood by AutomatedOrdered By: Gustavo Mcclelland on 07-14-2024 Monocyte distribution width Auto (Bld) [Entitic vol] 19.18 % 0.00-20.00 [facility] Neutrophils [#/volume] in Bl ood by Automated countOrdered By: Gustavo Mcclelland on 07-14-2024 Neutrophils (Bld) [#/Vol] 2.4 10*3/uL Normal 1.8-7.7 [facility] Comment on above: Performed By: #### C BC, BMP, LIPASE, HEPATIC ####[address] Nitrite Test strip Ql (U)Ord ered By: Gustavo Mcclelland on 07-14-2024 Nitrite Ql (U) Negative Negative [facility] No Panel InformationOrdered By: Gustavo Mcclelland on 07-14-2024 Estimated GFR (CKD-EPI) > 60.0 mL/Min [facility] Creatinine Clearance (Chem 83.35 [facility] Nucleated erythrocytes [Pres ence] in Blood by Automated countOrdered By: Gustavo Mcclelland on 07-14-2024 Nucleated RBC Auto Ql (Bld) 0.2 /100{WBC} 0-0.5 [facility] Platelet mean volume [Entiti c volume] in Blood by Automated countOrdered By: Gustavo Mcclelland on 07-14-2024 Platelet mean volume (Bld) [Entitic vol] 9.3 fL Normal 6.6-10.1 [facility] Comment on above: Performed By: #### C BC, BMP, LIPASE, HEPATIC ####[address] Platelets [#/volume] in Bloo d by Automated countOrdered By: Gustavo Mcclelland on 07-14-2024 Platelets (Bld) [#/Vol] 142 10*3/uL Low 150-450 [facility] Comment on above: Performed By: #### C BC, BMP, LIPASE, HEPATIC ####[address] Potassium [Moles/volume] in Serum or PlasmaOrdered By: Gustavo Mcclelland on 07-14-2024 Potassium [Moles/Vol] 3.9 mmol/L Normal 3.5-5.1 [facility] Comment on above: Performed By: #### C BC, BMP, LIPASE, HEPATIC ####[address] Protein Test strip (U) [Mass /Vol]Ordered By: Gustavo Mcclelland on 07-14-2024 Protein (U) [Mass/Vol] Negative Negative [facility] Protein [Mass/volume] in Ser um or PlasmaOrdered By: Gustavo Mcclelland on 07-14-2024 Protein [Mass/Vol] 7.8 g/dL Normal 6.4-8.9 [facility] Comment on above: Performed By: #### C BC, BMP, LIPASE, HEPATIC ####[place] [id number] [facility] Serum globulin measurement b y calculation (mass/volume)Ordered By: Gustavo Mcclelland on 07-14-2024 Globulin (S) [Mass/Vol] 3.3 g/dL Normal [facility] Comment on above: Performed By: #### C BC, BMP, LIPASE, HEPATIC ####[place] [id number] [facility] Serum or plasma albumin/glob ulin mass ratioOrdered By: Gustavo Mcclelland on 07-14-2024 Albumin/Globulin [Mass ratio] 1.4 {ratio} Normal [facility] Comment on above: Performed By: #### C BC, BMP, LIPASE, HEPATIC ####[place] [id number] [address] Serum or plasma anion gap de terminationOrdered By: Gustavo Mcclelland on 07-14-2024 Anion gap [Moles/Vol] 16.2 mmol/L High 6.0-15.0 [facility] Comment on above: Performed By: #### C BC, BMP, LIPASE, HEPATIC ####[place] [id number] [address] Serum or plasma non-glucuron idated bilirubin measurement (mass/volume)Ordered By: Gustavo Mcclelland on 07-14-2024 Bilirubin.indirect [Mass/Vol] 0.3 mg/dL [facility] Sodium [Moles/volume] in Ser um or PlasmaOrdered By: Gustavo Mcclelland on 07-14-2024 Sodium [Moles/Vol] 136 mmol/L Normal 136-145 [facility] Comment on above: Performed By: #### C BC, BMP, LIPASE, HEPATIC ####[address] Specific gravity Test strip (U) [Rel density]Ordered By: Gustavo Mcclelland on 07-14-2024 Specific gravity (U) [Rel density] 1.004 1.001-1.030 [facility] Urea nitrogen [Mass/volume] in Serum or PlasmaOrdered By: Gustavo Mcclelland on 07-14-2024 Urea nitrogen [Mass/Vol] 19 mg/dL Normal 7-25 [facility] Comment on above: Performed By: #### C BC, BMP, LIPASE, HEPATIC ####[place] [id number] [address] Urinalysison 07-14-2024 Bilirubin,Urine Negative Normal Negative [facility] Comment on above: Order Comment: Name Collection Type:: Clean-Voided Midstream Performed By: #### U A ####[address] [address] [facility] Glucose Ql (U) Normal Normal Normal [facility] Comment on above: Order Comment: Name Collection Type:: Clean-Voided Midstream Performed By: #### U A ####[address] [address] [facility] Nitrite,Urine Negative Normal Negative [facility] Comment on above: Order Comment: Name Collection Type:: Clean-Voided Midstream Performed By: #### U A ####[address] [address] [facility] Occult Blood,Urine Negative Normal Negative [facility] Comment on above: Order Comment: Name Collection Type:: Clean-Voided Midstream Result Comment: PERF ORMED BY: [facility] [address] [place] [id number] PATHOLOGIST [employer] TOPSTITCHER CHER LAGUNA M.D. Performed By: #### U A ####[address] [address] [facility] Protein,Urine Negative Normal Negative [facility] Comment on above: Order Comment: Name Collection Type:: Clean-Voided Midstream Performed By: #### U A ####[address] [address] [facility] Specificy [place],Urine 1.004 Normal 1.001-1.030 [facility] Comment on above: Order Comment: Name Collection Type:: Clean-Voided Midstream Performed By: #### U A ####[address] [address] [facility] Urobilinogen,Urine Normal Normal Normal [facility] Comment on above: Order Comment: Name Collection Type:: Clean-Voided Midstream Performed By: #### U A ####[address] [address] [facility] Urine appearanceOrdered By: Gustavo Mcclelland on 07-14-2024 Appearance (U) Clear Normal Clear [facility] Comment on above: Order Comment: Name Collection Type:: Clean-Voided Midstream Performed By: #### U A ####[facility] [id number] [place] [address] [facility] Urobilinogen Test strip (U) [Mass/Vol]Ordered By: Gustavo Mcclelland on 07-14-2024 Urobilinogen (U) [Mass/Vol] Normal mg/dL Normal [facility] pH of Urine by Test stripOrd ered By: Gustavo Mcclelland on 07-14-2024 pH (U) 5.0 [pH] Normal 5.0-9.0 [facility] Comment on above: Order Comment: Name Collection Type:: Clean-Voided Midstream Performed By: #### U A ####[facility] [id number] [place] [address] [facility] Interdisciplinary Note - Soc ial Workeron 07-13-2024 Interdisciplinary Note - School Manager Interdisciplinary Note - School Manager This SW met with HIM this morning and requested the medical records be faxed to Mr. Cheryle Pinzon at the [facility] Radiology Technician's office. Normal [facility] ED Note-Physicianon 07-12-20 ED Note-Physician ED Note-Physician Basic Information Time Seen: Capo Monzon M.D. 07/11/2024 10:48 Chief Complaint woke up today with palpitations and feeling like his heart was racing. took his metoprolol to see if that wouold help. called 911 because of the palpitations and headache. denies cp, sob, n/v, fever, chills. History of Present Illness The patient is a 53-year-old male past medical history of hypertension, thoracic aortic aneurysm, chronic abdominal pain who presented to the emergency room via EMS for palpitation and headache. The patient states that he has been out with his friends last night and drinking beers. The patient states he woke up this morning with palpitation feeling like his heart was racing. The patient states he took his metoprolol and the heart rate slowed down. The patient states this morning he started having a headache and he points to the right occipital region. The patient states few days back he fell on concrete and he hit his head. The patient denies any nausea, denies any vomiting. The patient denies any chest pain. Denies any shortness of breath. The patient denies any cough. He denies any fever, denies any chills. The patient states that he has a chronic right-sided abdominal pain and he is scheduled to see a GI for possible colonoscopy. The patient denies any diarrhea. He reports chronic constipation. The patient denies any other associated symptoms. Review of Systems Additional ROS info: Except as noted in the above Review of Systems and in the History of Present Illness all other systems have been reviewed and are negative or noncontributory. Physical Exam Vitals & Measurements T: 36.7 ?C(Oral) HR: 61(Monitored) RR: 14 BP: 121/67 SpO2: 99% HT: 167 cm WT: 95.8 kg BMI: 34.35 General: alert, no acute distress Skin: warm, dry Head: no trauma, normocephalic Neck: Trachea midline, no tenderness, supple Eye: normal conjunctiva, sclera clear, PERRL, EOMI, vision unchanged ENMT: Oral mucosa moist, no pharyngeal erythema or exudate Cardiovascular: regular rate and rhythm, Respiratory: Lungs CTA, respirations non labored, breath sounds equal, Gastrointestinal: soft, non distended, no tenderness, no guarding, Extremities: no deformity, no trauma Neurological: Alert and oriented, CN II-XII intact, motor strength equal & normal bilaterally, sensation equal & normal bilaterally, speech normal, no focal neuro deficits Psychiatric: cooperative, affect appropriate for age, Medical Decision Making MEDICAL DECISION MAKING Number and Complexity of Problems Differential Diagnosis: [] [facility] Data External documents reviewed: [] My EKG interpretation: [] My CT interpretation: [] My X-ray interpretation: [] My Ultrasound interpretation: [] Decision rules/scores evaluated: [] Discussed with: [] Treatment and Disposition ED Course: The patient presented with palpitation and headache. The patient reported head injury 3 weeks ago. His palpitation has resolved after taking his metoprolol. The EKG shows no acute ischemic changes. No changes when compared to previous EKG. Blood work reviewed. TSH is normal. CT of the brain shows no acute intracranial process. The chest x-ray no acute cardiopulmonary disease. The patient was symptom-free during the emergency room stay. Will discharge patient home follow-up with cardiology for Holter monitor placement. He is instructed to return to the emergency room if his symptoms recur or any new symptoms. Shared decision making: [] Code status: [] Assessment/Plan 1. Palpitations (R00.2: Palpitations) 2. Closed head injury (S09.90XA: Unspecified injury of head, initial encounter) Orders: CT Head or Brain w/o Contrast ECG 12 Lead Adult Ethanol Level Disposition Plan Patient Discharge Condition Stable, improved Discharge Disposition Discharge home Discharge Prescription List Prescriptions No active prescription medications Follow-up With When Contact Information Rao Samayoa In 3 days 07/14/2024 EDT [address] [place] [address]- [phone] Business (1) Additional Instructions: Follow-up with Dr. Samayoa for Holter monitor placement and Dr. Valencia as discussed. Return to the emergency room if your palpitation recurs, headache gets worse or any new symptoms. Yang VALENCIA In 3 days [address] [place] [address] Business (1) Additional Instructions: Patient Education Head Injury, Adult Palpitations Problem List/Past Medical History Ongoing Smoker Historical Aneurysm of descending aorta Hyperlipidemia Hypertension Medications Inpatient No active inpatient medications Home cloNIDine 0.2 mg Tab, 0.2 mg= 1 tab(s), Oral, BID lisinopril 20 mg Tab, 20 mg= 1 tab(s), Oral, Daily lisinopril 20 mg Tab, 20 mg= 1 tab(s), Oral, Daily, Not taking metoprolol 25 mg ER Tab, 25 mg= 1 tab(s), Oral, Daily metoprolol succinate 50 mg ER Tab, 50 mg= 1 tab(s), Oral, (more content not included)... Normal [facility] Comment on above: Result Comment: Elec tronically Signed By: Na Dickinson, Capo H\.br\Date and Time Signed: 07/12/24 08:14 EDT BMPOrdered By: SYSTEM SYSTEM on 07-11-2024 Anion gap [Moles/Vol] 10 mmol/L Normal 6-16 [facility] Comment on above: Performed By: #### 2 [id number] #### [facility] [address] [place] [address] Calcium [Mass/Vol] 8.9 mg/dL Normal 8.9-11.1 [facility] Comment on above: Performed By: #### 2 [id number] #### [facility] [address] [place] [address] Chloride [Moles/Vol] 103 mmol/L Normal 101-111 [facility] Comment on above: Performed By: #### 2 [id number] #### [facility] [address] [place] [address] CO2 [Moles/Vol] 28 mmol/L Normal 21-31 [facility] Comment on above: Performed By: #### 2 [id number] #### [facility] [address] [place] [address] Creatinine [Mass/Vol] 1.2 mg/dL Normal 0.5-1.3 Rem isol Chem Comment on above: Performed By: #### 2 [id number] #### [facility] [address] [place] [address] Glucose [Mass/Vol] 99 mg/dL Normal 55-199 [facility] Comment on above: Performed By: #### 2 [id number] #### [facility] [address] [place] [address] Potassium [Moles/Vol] 4.8 mmol/L Normal 3.5-5.3 Rem [facility] Comment on above: Performed By: #### 2 [id number] #### [facility] [address] [place] [address] Sodium [Moles/Vol] 136 mmol/L Normal 135-145 [facility] Comment on above: Performed By: #### 2 [id number] #### [facility] [address] [place] [address] Urea nitrogen [Mass/Vol] 15 mg/dL Normal 5-21 [facility] Comment on above: Performed By: #### 2 [id number] #### [facility] [address] [place] [address] BMPon 07-11-2024 Urea nitrogen/Creatinine [Mass ratio] 12 No Units Normal - [facility] Comment on above: Performed By: #### 2 [id number] #### [facility] [address] [place] [address] BNPOrdered By: Randi barron on 07-11-2024 Natriuretic peptide B (Bld) [Mass/Vol] 22 pg/mL Normal 5-80 [facility] Comment on above: Performed By: #### 1 [id number] #### [facility] [address] [place] [address] CBC w/ Auto DiffOrdered By: SYSTEM SYSTEM on 07-11-2024 Basophils/100 WBC (Bld) 0.3 % Normal 0.0-2.0 [facility] Comment on above: Performed By: #### 2 [id number] #### [facility] [address] [place] [address] Basophils/Leukocytes Auto (Bld) [Pure # fraction] 0.0 E9/L Normal 0.0-0.2 [facility] Comment on above: Performed By: #### 2 [id number] #### [facility] [address] [place] [address] Eosinophils (Bld) [#/Vol] 0.1 E9/L Normal 0.0-0.5 [facility] Comment on above: Performed By: #### 2 [id number] #### [facility] [address] [place] [address] Eosinophils/100 WBC (Bld) 2.1 % Normal 0.0-8.0 [facility] Comment on above: Performed By: #### 2 [id number] #### [facility] [address] [place] [address] Erythrocyte distribution width (RBC) [Ratio] 13.0 % Normal 10.9-14.2 [facility] Comment on above: Performed By: #### 2 [id number] #### [facility] [address] [place] [address] Hematocrit (Bld) [Volume fraction] 39.0 % Normal 37.7-49.0 [facility] Comment on above: Performed By: #### 2 [id number] #### [facility] [address] [place] [address] Hemoglobin (Bld) [Mass/Vol] 13.1 g/dL Low 13.5-17.5 [facility] Comment on above: Performed By: #### 2 995316 #### [facility] [address] [place] [address] Lymphocytes (Bld) [#/Vol] 0.8 E9/L Low 1.0-4.0 [facility] Comment on above: Performed By: #### 2 395902 #### Singh [facility] [address] [place] [address] Lymphocytes/100 WBC (Bld) 23.3 % Normal 14.0-50.0 [facility] Comment on above: Performed By: #### 2 073663 #### [place] [facility] [address] [place] [address] MCH (RBC) [Entitic mass] 29.2 pg Normal 27.0-34.0 [facility] Comment on above: Performed By: #### 2 480100 #### Singh [facility] [address] [place] [address] MCHC (RBC) [Mass/Vol] 33.7 g/dL Normal 31.4-36.0 [facility] Comment on above: Performed By: #### 2 898905 #### [facility] [address] [place] [address] MCV (RBC) [Entitic vol] 86.8 fL Normal 80.0-100.0 [facility] Comment on above: Performed By: #### 2 060455 #### [place] [facility] [address] [place] [address] Monocytes (Bld) [#/Vol] 0.3 E9/L Normal 0.2-1.0 [facility] Comment on above: Performed By: #### 2 229052 #### [place] [facility] [address] [place] [address] Neutrophils (Bld) [#/Vol] 2.4 E9/L Normal 2.0-7.5 [facility] Comment on above: Performed By: #### 2 929301 #### [place] [facility] [address] [place] [address] Neutrophils/100 WBC (Bld) 67.0 % Normal 36.0-75.0 [facility] Comment on above: Performed By: #### 2 799874 #### Singh [facility] [address] [place] [address] Platelet mean volume (Bld) [Entitic vol] 9.2 fL Normal 6.4-10.8 [facility] Comment on above: Performed By: #### 2 653642 #### [facility] [address] [place] [address] Platelets (Bld) [#/Vol] 131.0 E9/L Low 150.0-500.0 [facility] Comment on above: Performed By: #### 2 632656 #### [facility] [address] [place] [address] RBC (Bld) [#/Vol] 4.5 E12/L Normal 4.3-5.9 [facility] Comment on above: Performed By: #### 2 055956 #### [facility] [address] [place] [address] WBC corrected for nucl RBC Auto (Bld) [#/Vol] 3.6 E9/L Low 4.0-11.0 [facility] Comment on above: Performed By: #### 2 [id number] #### Singh [facility] [address] [place] [address] CHEMISTRYOrdered By: SYSTEM SYSTEM on 07-11-2024 Troponin HS 3.10 pg/mL Low 15.90 - 38.40 pg/mL [facility] Comment on above: Interpretive Data: T he 95% CI (Confidence Interval) PPV (Positive Predictive Value) for myocardial infarction in females is 38 pg/mL, in males 51 pg/mL. The results should be used in conjunction with clinical conditions of myocardial infarction. (Access High Sensitivity Troponin I Instructions For Use, Farhana Bernard, April 2018) Albumin/Globulin [Mass ratio] 1.5 {ratio} Normal 1.1 - 2.2 [facility] ALP [Catalytic activity/Vol] 57 [iU]/d Normal 21 - 98 Int._Unit/L [facility] ALT No additional P-5'-P [Catalytic activity/Vol] 20 [iU]/d Normal 6 - 46 Int._Unit/L [facility] AST [Catalytic activity/Vol] 17 [iU]/d Normal 5 - 43 Int._Unit/L [facility] Ethanol Lvl mg/dL Normal <=11mg/dL [facility] Urea nitrogen/Creatinine [Mass ratio] 12 mg/mg Normal 10 - 20 [facility] COAGULATIONOrdered By: Genevieve Blackwood on 07-11-2024 aPTT Coag (PPP) [Time] 31.9 s Normal 25.1 - 36.5 second(s) [facility] Comment on above: Interpretive Data: P arameter 15 days - 4 weeks 1 - 5 months 6 - 11 months 1 - 5 years 6 - 10 years 11 - 17 years PTT Mean: 35.4 (27.6-45.6) Mean: 33.5 (24.8-40.7) Mean: 32.4 (25.1-40.7) Mean: 31.6 (24.0-39.2) Mean: 31.6 (26.9-38.7) Mean: 31.0 (24.6-38.4) Pediatric Reference ranges were obtained from a study by Mando Wharton et al. prepared from 1437 samples obtained at 7 different centers using the same coagulation reagent and instrumentation as [facility]. Currently there are no coagulation studies available worldwide for children to 14 days, and no normal ranges. Heparin therapeutic range (represented by Anti-Factor Xa activity of 0.2 - 0.4 U/mL) corresponds to PTT of 56.6 - 109.0 sec. PT Coag (PPP) [Time] 11.0 s Normal 9.4 - 1 2.5 second(s) [facility] Comment on above: Interpretive Data: 1 5 days - 4 weeks 1 - 5 months 6 -11 months 1 5 years 6 10 years 11 -17 years Mean: 11.2 (9.5 12.6) Mean: 11.0 (9.7 12.8) Mean: 11.0 (9.8 13.0) Mean: 11.3 (9.9 13.4) Mean: 11.7 (10.0 14.6) Mean: 11.8 (10.0 - 14.1) Pediatric Reference ranges were obtained from a study by Mando Wharton et al. prepared from 1437 samples obtained at 7 different centers using the same coagulation reagent and instrumentation as [facility]. Currently there are no coagulation studies available worldwide for children to 14 days, and no normal ranges. CT Head or Brain w/o Contras ton 07-11-2024 CT Head or Brain w/o Contrast Exam Date/Time: 07/11/2024 12:22 EDT Reason for Exam: Headache Report Impression: No acute intracranial process. Mild cerebral atrophy. Prominent foramen magnum versus arachnoid cyst, posterior fossa. CT Brain. Contrast medium: without contrast.. History: Palpitations. Headache. Technical factors: CT imaging of the brain was obtained and formatted as 5 mm contiguous axial images. 2.5 mm contiguous axial images were obtained through the osseous structures. Sagittal and coronal reconstruction obtained during postprocessing. Comparison: None. Findings: Extra-axial spaces: Normal. Intracranial hemorrhage: None. Ventricular system: Intervals mildly enlarged with sulci mildly prominent. Basal Cisterns: Normal. Cerebral Parenchyma: Without anomaly. Midline Shift: None. Cerebellum: Prominent foramen magnum, versus arachnoid cyst identified in midline. Paranasal sinuses and mastoid air cells: Normal. Visualized Orbits: Normal. All CT scans at this facility use dose modulation, iterative reconstruction, and/or weight based dosing when appropriate to reduce radiation dose to as low as reasonably achievable. Report Ordering Provider: Capo Monzon FINAL REPORT Dictated: 07/11/2024 12:35 pm Max Atkins MD Signed (Electronic Signature): 07/11/2024 12:35 pm Signed by: Max Atkins MD Transcribed by: LINDEN Technologist: RODY Lopez [facility] ED Clinical Summaryon 2023 ED Clinical Summary ED Clinical Summary [place] [id number] ED Clinical Summary Person Information Name: HOSEA ALVAREZ/[facility] Age: 53 Years : 1970 Sex: Male Language: Zimbabwean PCP: Yang VALENCIA MD Marital Status: Single Visit Id: Visit Reason: Headache; Palpitations; HEADACHE- PALPITATIONS Speciality: Acuity: 2 Enc Type: Emergency Med Service: Emergency Arrival: 07/11/2024 10:43:39 Discharge: 07/11/2024 14:26:02 LOS: 000 03:43 Checkin: 07/11/2024 10:43:39 Checkout: 07/11/2024 14:26:02 Dispo Type: Home (Routine DC) EVENTS: Event Name Event Status Request Date/Time Start Date/Time Complete Date/Time Arrive Complete 07/11/2024 10:43:39 07/11/2024 10:43:39 07/11/2024 10:43:39 Document Home Meds Request 07/11/2024 10:43:39 Triage Complete 07/11/2024 10:43:39 07/11/2024 10:49:38 07/11/2024 10:49:38 EKG Complete 07/11/2024 10:44:56 07/11/2024 10:46:28 Bed Assign Complete 07/11/2024 10:45:33 07/11/2024 10:45:33 07/11/2024 10:45:33 Dr Exam Complete 07/11/2024 10:45:33 07/11/2024 10:48:59 07/11/2024 10:48:59 RN Exam Complete 07/11/2024 10:45:33 07/11/2024 10:59:48 07/11/2024 10:59:48 Registration Complete 07/11/2024 10:48:59 07/11/2024 12:03:34 07/11/2024 12:03:34 Pending Labs Request 07/11/2024 10:50:12 Lab Complete 07/11/2024 10:50:12 07/11/2024 11:52:59 Meds Admin Complete 07/11/2024 10:50:12 07/11/2024 11:54:28 X-Ray Complete 07/11/2024 10:50:12 07/11/2024 11:21:08 07/11/2024 12:04:08 Patient Care Request 07/11/2024 10:50:12 Pending Labs Cancel 07/11/2024 10:55:17 07/11/2024 11:11:49 Fall Risk Request 07/11/2024 10:59:48 CT Complete 07/11/2024 11:00:48 07/11/2024 12:05:02 07/11/2024 12:22:41 Pending Labs Complete 07/11/2024 11:03:43 07/11/2024 11:37:33 Lab Complete 07/11/2024 11:03:43 07/11/2024 11:37:33 Pending Labs Complete 07/11/2024 11:10:26 07/11/2024 11:10:26 07/11/2024 11:37:04 Lab Complete 07/11/2024 11:10:26 07/11/2024 11:10:26 07/11/2024 11:37:04 Pending Labs Complete 07/11/2024 11:12:15 07/11/2024 11:12:15 07/11/2024 11:52:31 Reg Complete Request 07/11/2024 12:03:34 Reg Bed Request Complete 07/11/2024 12:03:34 07/11/2024 12:03:34 07/11/2024 12:03:34 Wet Read Request 07/11/2024 12:04:08 Pending Labs Complete 07/11/2024 13:20:14 07/11/2024 13:20:14 07/11/2024 13:20:15 Discharge Complete 07/11/2024 14:01:02 07/11/2024 14:26:07 07/11/2024 14:26:07 Transfer Complete 07/11/2024 14:26:07 07/11/2024 14:26:07 07/11/2024 14:26:07 ADDRESS: RETURN MAIL [address] [place] [id number] PHYS DOC NOTES: MEDICAL INFORMATION: Prescriptions Given: Medications to Continue with No Changes Other Medications clonidine (cloNIDine 0.2 mg Tab) 1 Tablets By Mouth 2 times a day for 7 Days. Refills: 0. lisinopril (lisinopril 20 mg Tab) 1 Tablets By Mouth every day for 7 Days. Refills: 0. lisinopril (lisinopril 20 mg Tab) 1 Tablets By Mouth every day. metoprolol (metoprolol 25 mg ER Tab) 1 Tablets By Mouth every day. metoprolol (metoprolol succinate 50 mg ER Tab) 1 Tablets By Mouth every day for 7 Days. Refills: 0. metoprolol (Toprol XL 25 mg Tab-ER) 1 Tablets By Mouth every day. Refills: 0. PATIENT EDUCATION INFORMATION: Instructions: Head Injury, Adult; Palpitations Follow up: With: Address: When: Rao Samayoa [address] [place] [phone] Business (1) In 3 days 07/14/2024 Comments: Follow-up with Dr. Samayoa for Holter monitor placement and Dr. Valencia as discussed. Return to the emergency room if your palpitation recurs, headache gets worse or any new symptoms. With: Address: When: Yang VALENCIA [address] [place], [place] [id number] Business (1) In 3 days DIAGNOSIS: 1:Palpitations; 2:Closed head injury Normal [facility] ED Patient Summaryon 024 ED Patient Summary ED Patient Summary [address] [address] Patient Discharge Instructions Person Information Name: HOSEA ALVAREZ Age: 53 Years Arrival Date: 07/11/2024 10:43:39 Discharge Diagnosis: 1:Palpitations; 2:Closed head injury Primary Care Physician: Yang VALENCIA MD Provider Information Primary Provider: Capo Monzon M.D. Advanced Bottle Washer Machine:None The exam and treatment you received in the Emergency Department were for an urgent problem and are not intended as complete care. It is important that you follow up with a doctor, nurse practitioner, or physician?s community program assistant for ongoing care. If your symptoms become worse or you do not improve as expected and you are unable to reach your usual health care provider, you should return to the Emergency Department. We are available 24 hours a day. DARCIEHOSEA SUNSHINE has been given the following list of patient education materials, prescriptions and follow-up instructions: Follow-up Instructions: With: Address: When: Rao Samayoa [address] [place] [phone] [employer] (1) In 3 days 07/14/2024 Comments: Follow-up with Dr. Samayoa for Holter monitor placement and Dr. Valencia as discussed. Return to the emergency room if your palpitation recurs, headache gets worse or any new symptoms. With: Address: When: Yang VALENCIA [address] [place] [phone] [employer] (1) In 3 days In the event that this physician does not participate in your insurance network, please consult with your insurance company to find a nearby participating provider. Patient Education Materials: Head Injury, Adult; Palpitations A MESSAGE TO ALL PATIENTS REGARDING OPIOIDS PRESCRIPTION OPIOIDS: WHAT YOU NEED TO KNOW Prescription opioids can be used to help relieve kdnmjzob-xq-ppnyhe pain and are often prescribed following a surgery or injury, or for certain health conditions. These medications can be an important part of the treatment but also come with serious risks. It is important to work with your healthcare provider to make sure you are getting the safest, most effective care. WHAT ARE THE RISKS AND SIDE EFFECTS OF OPIOID USE? Prescription opioids carry serious risks of addiction and overdose, especially with prolonged use. An opioid overdose, often marked by slowed breathing, can cause sudden . The use of prescription opioids can have a number of side effects as well, even when taken as directed: ? Tolerance?meaning you might need to take more of the medication for the same pain relief ? Physical dependence?meaning you have symptoms of withdrawal when a medication is stopped ? Increased sensitivity to pain ? Constipation ? Nausea, vomiting, and dry mouth ? Sleepiness and dizziness ? Confusion ? Depression ? Low levels of testosterone that can result in lower sex drive, energy, and strength ? Itching and sweating RISKS ARE GREATER WITH: ? History of drug misuse, substance use disorder, or overdose ? Mental health conditions (such as depression or anxiety) ? Sleep apnea ? Older age (65 years and older) ? Avoid alcohol while taking prescription opioids. Also, unless specifically advised by your health care provider, medications to avoid include: ? Benzodiazepines (such as Xanax or Valium) ? Muscle relaxants (such as Soma or Flexeril) ? Hypnotics (such as Ambien or Lunesta) ? Other prescription opioids KNOW YOUR OPTIONS Talk to your health care provider about ways to manage your pain that don?t involve prescription opioids. Some of these options may actually work better and have fewer risks and side effects. Options may include: ? Pain relievers such as acetaminophen, ibuprofen, and naproxen ? Some medication that are also used for depression or seizures ? Physical therapy and exercise ? Cognitive behavioral therapy, a psychological, goal-directed approach, in which patients learn how to modify physical, behavioral, and emotional triggers of pain and stress. IF YOU ARE PRESCRIBED OPIOIDS FOR PAIN: ? Never take opioids in greater amounts or more often than prescribed. ? Follow up with your primary health care provider. o Work together to create a plan on how to manage your pain. o Talk about ways to help manage your pain that don?t involve prescription opioids. o Talk about any and all concerns and side effects. ? Help prevent misuse and abuse o Never sell or share prescription opioids. o Never use another person?s prescription opioids. ? Store prescription opioids in a secure place and out of reach of others (this may include visitors, children, friends, and family). ? Safely dispose of unused prescription opioids: Find your community drug take-back program or your pharmacy mail-back program, or flush them down the toilet, following guidance from the (more content not included)... [facility] Ethanolon 07-11-2024 Ethanol Lvl <10 Normal <=[address] [facility] Comment on above: Performed By: #### 2 [id number] #### [facility] [address] [place] [address] HEMATOLOGYOrdered By: SYSTEM SYSTEM on 07-11-2024 Monocytes/100 WBC (Bld) 7.3 % Normal 4.0 - 14.0 % Remisol Heme Hep Func PanelOrdered By: Call Britannia SYSTEM on 07-11-2024 Albumin [Mass/Vol] 4.1 g/dL Normal 3.3-5.0 [facility] Comment on above: Performed By: #### 2 [id number] #### [facility] [address] [place] [address] Bilirubin [Mass/Vol] 0.5 mg/dL Normal 0.0-1.1 [facility] Comment on above: Performed By: #### 2 [id number] #### [facility] [address] [place] [address] Bilirubin.direct [Mass/Vol] 0.1 mg/dL Normal 0.0-0.4 [facility] Comment on above: Performed By: #### 2 [id number] #### [facility] [address] [place] [address] Bilirubin.indirect [Mass or moles/Vol] 0.4 mg/dL Normal 0.1-0.9 [facility] Comment on above: Performed By: #### 2 [id number] #### [facility] [address] [place] [address] Globulin (S) [Mass/Vol] 2.8 g/dL Normal 1.4-4.0 [facility] Comment on above: Performed By: #### 2 [id number] #### [facility] [address] [place] [address] Protein [Mass/Vol] 6.9 g/dL Normal 6.0-7.8 [facility] Comment on above: Performed By: #### 2 [id number] #### [facility] [address] [place] [address] Hep Func Panelon 07-11-2024 Albumin/Globulin (S) [Mass conc ratio] 1.5 Normal 1.1-2.[address] [facility] Comment on above: Performed By: #### 2 [id number] #### [facility] [address] [place] [address] ALP [Catalytic activity/Vol] 57 Int._Unit/L Normal 21-[address] [facility] Comment on above: Performed By: #### 2 [id number] #### [facility] [address] [place] [address] ALT No additional P-5'-P [Catalytic activity/Vol] 20 Int._Unit/L Normal 6-[address] [facility] Comment on above: Performed By: #### 2 [id number] #### [facility] [address] [place] [id number] AST [Catalytic activity/Vol] 17 Int._Unit/L Normal 5-[address] [facility] Comment on above: Performed By: #### 2 [id number] #### [facility] [address] [place] [id number] MagnesiumOrdered By: SYSTEM SYSTEM on 07-11-2024 Magnesium [Mass/Vol] 1.9 mg/dL Normal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 Eosinophils (Bld) [#/Vol] 0.10 10*3/uL Normal 0.00-0.40 [facility] Comment on above: Performed By: #### C DP, TROPI, BMP, DIME #### [facility] [address] [place] [address] Saddle Maker: Aneudy Webster MD Eosinophils/100 WBC (Bld) 3 % Normal 0-5 [facility] Comment on above: Performed By: #### C DP, TROPI, BMP, DIME #### [facility] [address] [place] [address] Saddle Maker: Aneudy Webster MD Erythrocyte distribution width (RBC) [Ratio] 11.9 % Low 12.1-15.2 [facility] Comment on above: Performed By: #### C DP, TROPI, BMP, DIME #### [facility] [address] [place] [id number] Saddle Maker: Aneudy Webster MD Hematocrit (Bld) [Volume fraction] 41.3 % Normal 41.0-53.0 [facility] Comment on above: Performed By: #### C DP, TROPI, BMP, DIME #### [facility] [address] [place] [address] Saddle Maker: Aneudy Webster MD Hemoglobin (Bld) [Mass/Vol] 13.7 g/dL Normal 13.5-17.5 [facility] Comment on above: Performed By: #### C DP, TROPI, BMP, DIME #### [facility] [address] [place] [id number] Saddle Maker: Aneudy Webster MD Immature granulocytes/100 WBC (Bld) 0 % Normal 0-5 [facility] Comment on above: Performed By: #### C DP, TROPI, BMP, DIME #### [facility] [address] [place] [address] Saddle Maker: Aneudy Webster MD Lymphocytes (Bld) [#/Vol] 1.08 10*3/uL Normal 1.00-4.80 [facility] Comment on above: Performed By: #### C DP, TROPI, BMP, DIME #### [facility] [address] [place] [address] Saddle Maker: Aneudy Webster MD Lymphocytes/100 WBC (Bld) 28 % Normal 13-44 [facility] Comment on above: Performed By: #### C DP, TROPI, BMP, DIME #### [facility] [address] [place] [id number] Saddle Maker: Aneudy Webster MD MCH (RBC) [Entitic mass] 28.9 pg Normal 26.0-34.0 [facility] Comment on above: Performed By: #### C DP, TROPI, BMP, DIME #### [facility] [address] [place] [id number] Saddle Maker: Aneudy Webster MD MCHC (RBC) [Mass/Vol] 33.2 g/dL Normal 31.0-37.0 [facility] Comment on above: Performed By: #### C DP, TROPI, BMP, DIME #### [facility] [address] [place] [address] Saddle Maker: Aneudy Webster MD MCV (RBC) [Entitic vol] 87.1 fL Normal 80.0-100.0 [facility] Comment on above: Performed By: #### C DP, TROPI, BMP, DIME #### [facility] [address] [place] [address] Saddle Maker: Aneudy Webster MD Monocytes (Bld) [#/Vol] 0.35 10*3/uL Normal 0.00-1.00 [facility] Comment on above: Performed By: #### C DP, TROPI, BMP, DIME #### [facility] [address] [place] [address] Saddle Maker: Aneudy Webster MD Monocytes/100 WBC (Bld) 9 % Normal 5-9 [facility] Comment on above: Performed By: #### C DP, TROPI, BMP, DIME #### [facility] [address] [place] [address] Saddle Maker: Aneudy Webster MD Neutrophil (Seg) 60 % Normal 39-75 [facility] Comment on above: Performed By: #### C DP, TROPI, BMP, DIME #### [facility] [address] [place] [id number] Saddle Maker: Aneudy Webster MD Platelet mean volume (Bld) [Entitic vol] 10.9 fL Normal 6.0-12.0 [facility] Comment on above: Performed By: #### C DP, TROPI, BMP, DIME #### [facility] [address] [place] [address] Saddle Maker: Aneudy Webster MD Platelets (Bld) [#/Vol] 144 10*3/uL Normal 140-450 [facility] Comment on above: Performed By: #### C DP, TROPI, BMP, DIME #### [facility] [address] [place], [place] [phone] (557) Saddle Maker: Aneudy Webster MD RBC (Bld) [#/Vol] 4.74 10*6/uL Normal 4.50-5.90 [facility] Comment on above: Performed By: #### C DP, TROPI, BMP, DIME #### [facility] [address] [place], [place] [id number] Saddle Maker: Aneudy Webster MD WBC (Bld) [#/Vol] 3.9 10*3/uL Normal 3.5-11.0 [facility] Comment on above: Performed By: #### C DP, TROPI, BMP, DIME #### [facility] [address] [place] [address] Saddle Maker: Aneudy Webster MD D-Dimer Teston 07-04-2024 D-Dimer Test 1.45 ug/mL U High 0.00-0.59 [facility] Comment on above: Result Comment: When combined with a low clinical probability, a D dimer value of <0.50 ug/mL FEU is considered negative for DVT and PE (negative predictive value of 98%, sensitivity of 97%). If this test is not being used to help rule out DVT and PE, then the following reference range should be utilized: 0.00 - 0.59 ug/mL FEU. The D-Dimer assay is intended for use as an aid in the diagnosis of venous thromboembolism (DVT and PE) and the results should be interpreted in conjunction with the patient's medical history, clinical presentation, and other findings. Elevated levels of D-dimer activity can be seen in any state of coagulation activation and is not recommended in patients with therapeutic dose anticoagulant therapy for >24 hours, fibrinolytic therapy within the previous 7 days, trauma or surgery within the previous 4 weeks, disseminated malignancies, aortic aneurysm, sepsis, severe infections, pneumonia, severe skin infections, liver cirrhosis, advanced age, coronary disease, diabetes, and . A very low percentage of patients with DVT may yield D-dimer results below the cutoff of 0.5 ug/mL FEU. This is known to be more prevalent in patients with distal DVT. Performed By: #### C DP, TROPI, BMP, DIME #### [facility] [address] [place], [place] [id number] Saddle Maker: Aneudy Webster MD Troponinon 07-04-2024 Troponin, High Sens <6 Normal 0-22 [facility] Comment on above: Result Comment: High Sensitivity Troponin values cannot be compared with other Troponin methodologies. Performed By: #### C DP, TROPI, BMP, DIME #### [facility] [address] [place], [place] [id number] Saddle Maker: Aneudy Webster MD XR CHEST PORTABLEon 07-04-20 XR CHEST PORTABLE EXAM: XR CHEST RITO BLE HISTORY: chest pressure COMPARISON: 01/17/2020 TECHNIQUE: AP portable 1 view FINDINGS: The heart size is within normal limits. The lungs are grossly clear. There is no pneumothorax or pleural effusion. IMPRESSION: No acute cardiopulmonary disease. Interpreted by: Lily Canela MD Signed by: Lily Canela MD 07/04/24 Final result Normal [facility] BASIC METABOLIC PANELon 09- Anion gap [Moles/Vol] 8 mmol/L Low 10 - 20 [facility] Comment on above: Performed By: #### B MP #### [facility] [address] [place] [address] Calcium [Mass/Vol] 9.1 mg/dL Normal 8.6 - 10.[address] [facility] Comment on above: Performed By: #### B MP #### [facility] [address] [place] [address] Chloride [Moles/Vol] 101 mmol/L Normal 98 - 107 [facility] Comment on above: Performed By: #### B MP #### [facility] [address] [place] [address] Creatinine [Mass/Vol] 0.98 mg/dL Normal 0.50 - 1.30 [facility] Comment on above: Performed By: #### B MP #### [facility] [address] [place] [address] eGFR MALE >90 Normal >90 [facility] Comment on above: Result Comment: CALC ULATIONS OF ESTIMATED GFR ARE PERFORMED USING THE 2020 CKD-EPI STUDY REFIT EQUATION WITHOUT THE RACE VARIABLE FOR THE IDMS-TRACEABLE CREATININE METHODS. https://jasn.asnjournals.org/content/early/ASN.583123 8071 Performed By: #### B MP #### [facility] [address] [place] [address] Glucose [Mass/Vol] 101 mg/dL High 74 - [address] [facility] Comment on above: Performed By: #### B MP #### [facility] [address] [place] [address] HCO3 (Bld) [Moles/Vol] 31 mmol/L Normal 21 - 32 [facility] Comment on above: Performed By: #### B MP #### [facility] [address] [place] [address] Potassium [Moles/Vol] 4.1 mmol/L Normal 3.5 - 5.3 [facility] Comment on above: Performed By: #### B MP #### [facility] [address] [place] [address] Sodium [Moles/Vol] 136 mmol/L Normal 136 - [address] [facility] Comment on above: Performed By: #### B MP #### [facility] [address] [place] [address] Urea nitrogen [Mass/Vol] 15 mg/dL Normal 6 - 23 [facility] Comment on above: Performed By: #### B MP #### [facility] [address] [place] [address] CBC AND DIFFERENTIALon 06-07 % AUTOMATED IMMATURE GRAN 0.3 % Normal 0.0 - 0.9 [facility] Comment on above: Result Comment: Kath ture Granulocyte Count (IG) includes promyelocytes, myelocytes and metamyelocytes but does not include bands. Percent differential counts (%) should be interpreted in the context of the absolute cell counts (cells/L). Performed By: #### C BCDF #### [facility] [address] [place] [address] Basophils (Bld) [#/Vol] 0.02 10*3/uL Normal 0.00 - 0.10 [facility] Comment on above: Performed By: #### C BCDF #### [facility] [address] [place] [address] Basophils/100 WBC (Bld) 0.6 % Normal 0.0 - 2.0 [facility] Comment on above: Performed By: #### C BCDF #### [facility] [address] [place] [address] Eosinophils (Bld) [#/Vol] 0.08 10*3/uL Normal 0.00 - 0.70 [facility] Comment on above: Performed By: #### C BCDF #### [facility] [address] [place] [address] Eosinophils/100 WBC (Bld) 2.3 % Normal 0.0 - 6.0 [facility] Comment on above: Performed By: #### C BCDF #### [facility] [address] [place] [address] Erythrocyte distribution width (RBC) [Ratio] 12.6 % Normal 11.5 - 14.5 [facility] Comment on above: Performed By: #### C BCDF #### [facility] [address] [place] [address] Hematocrit (Bld) [Volume fraction] 41.3 % Normal 41.0 - 52.0 [facility] Comment on above: Performed By: #### C BCDF #### [facility] [address] [place] [address] Hemoglobin (Bld) [Mass/Vol] 13.8 g/dL Normal 13.5 - 17.5 [facility] Comment on above: Performed By: #### C BCDF #### [facility] [address] [place] [address] Lymphocytes (Bld) [#/Vol] 0.88 10*3/uL Low 1.20 - 4.80 [facility] Comment on above: Performed By: #### C BCDF #### [facility] [address] [place] [address] Lymphocytes/100 WBC (Bld) 25.6 % Normal 13.0 - 44.0 [facility] Comment on above: Performed By: #### C BCDF #### [facility] [address] [place] [address] MCHC (RBC) [Mass/Vol] 33.4 g/dL Normal 32.0 - 36.0 [facility] Comment on above: Performed By: #### C BCDF #### [facility] [address] [place] [address] MCV (RBC) [Entitic vol] 89 fL Normal 80 - 100 [facility] Comment on above: Performed By: #### C BCDF #### [facility] [address] [place] [address] Monocytes (Bld) [#/Vol] 0.28 10*3/uL Normal 0.10 - 1.00 [facility] Comment on above: Performed By: #### C BCDF #### [facility] [address] [place] [address] Monocytes/100 WBC (Bld) 8.1 % Normal 2.0 - 10.0 [facility] Comment on above: Performed By: #### C BCDF #### [facility] [address] [place] [address] Neutrophils (Bld) [#/Vol] 2.17 10*3/uL Normal 1.20 - 7.70 [facility] Comment on above: Performed By: #### C BCDF #### [facility] [address] [place] [address] Neutrophils/100 WBC (Bld) 63.1 % Normal 40.0 - 80.0 [facility] Comment on above: Performed By: #### C BCDF #### [facility] [address] [place] [address] Platelets (Bld) [#/Vol] 141 10*3/uL Low 150 - 450 [facility] Comment on above: Performed By: #### C BCDF #### [facility] [address] [place] [address] RBC 4.62 x10E12/L Normal 4.50 - 5.90 [facility] Comment on above: Performed By: #### C BCDF #### [facility] [address] [place] [address] WBC (Bld) [#/Vol] 3.4 10*3/uL Low 4.4 - 11.[address] [facility] Comment on above: Performed By: #### C BCDF #### [facility] [address] [place] [address] Provider Note - ED v3on 05-24 Provider Note - ED v3 Provider Note: Results/Vital Signs: Pediatric Clinical Scoring (YAKOV) is no recent YAKOV charted on this account Chart Review: HISTORY OF PRESENTING ILLNESS HOSEA is a 52 year old Male and was seen by me at 07-Jun-2023 08:24 for a chief complaint of multiple medical complaints . Other complaints include: Pt was just seen here last night for same multiple complaints. Pt appears dis shoveled and homeless with multiple belongings(1). Triage Information: Most recent Vital Sign Value Date Temp (F): 97 06-07-2023 08:01 Temp (C): 36.1 06-07-2023 08:01 Heart Rate (beats/min): 61 06-07-2023 08:01 Respirations (breaths/min): 16 06-07-2023 08:01 SpO2 (%): 98 06-07-2023 08:01 BP Systolic (mm Hg): 146 06-07-2023 08:01 BP Diastolic (mm Hg): 97 06-07-2023 08:01 PAST MEDICAL HISTORY ALLERGIES/INTOLERANCES: Allergy Allergen: Erythromycin Base Type: Drug Reaction: Unknown Allergen: Type: Food Reaction: Other Allergen: Cipro Type: Drug Reaction: Unknown Allergen: Ativan Type: Drug Reaction: Unknown Intolerance Allergen: polyethylene glycol 3350 Type: Drug Reaction: GI Upset HEALTH HISTORY: Family History Name:No family history of cancer Code:Z78.9 Name:No family history of coronary artery disease Code:Z78.9 Medical History Name:Chest pain Code:R07.9 Name:Renal artery stenosis Code:I70.1 Name:Pulmonary embolism Code:I26.99 Name:History of COVID-19 Code:Z86.16 Name:Ascending aortic aneurysm Code:I71.2 Name:Bipolar disorder Code:F31.9 Name:Palpitations Code:R00.2 Social History Name:Homeless Code:Z59.0 Name:Does not use illicit drugs Code:Z78.9 Name:Consumes alcohol occasionally Code:Z78.9 Name:Former smoker Code:Z87.891 OUTPATIENT MEDICATIONS: Home Medications Review Status for Reconciliation: N/A Med Status: Patient Currently Takes Medications Drug Name: cloNIDine 0.1 mg oral tablet Instructions: 1 tab(s) orally once a day, Drug Name: aspirin 81 mg oral tablet, chewable Instructions: 1 tab(s) chewed once a day Drug Name: atorvastatin 40 mg oral tablet Instructions: 1 tab(s) orally once a day Drug Name: polyethylene glycol 3350 oral powder for reconstitution Instructions: 17 gram(s) orally 2 times a day, As Needed -for constipation Drug Name: Citroma Angel 1.745 g/30 mL oral liquid Instructions: 300 milliliter(s) orally once, As Needed -for constipation Drug Name: metoprolol succinate 25 mg oral tablet, extended release Instructions: 1 tab(s) orally once a day Drug Name: losartan 50 mg oral tablet Instructions: 1 tab(s) orally once a day SIGNIFICANT EVENTS: Past Medical History Description:Hypertension (HTN) Description:Abdominal Aortic Aneurysm (AAA) Description:Heart murmur Description:Arrythmia Additional Notes: inverted T waves Description:RENAL STENOSIS Description:intestinal tumor REVIEW OF SYSTEMS CONSTITUTIONAL: Negative for: anorexia, chills and fever EYES: Negative for: pain and vision changes ENMTThroat/Neck: Negative for: dysphagia, neck pain and neck stiffness CARDIOVASCULAR: Negative for: chest pain and tachycardia RESPIRATORY: Negative for: cough, dyspnea and wheezing GASTROINTESTINAL: Negative for: abdominal pain, diarrhea, nausea and vomiting; GENITOURINARY: Negative for: dysuria, frequency, hematuria and urgency; MUSCULOSKELETAL: Negative for: back pain, pain, sensory deficits and weakness INTEGUMENTARY: Negative for: lesions; NEUROLOGICAL: Negative for: altered mental status, dizziness, headache, loss of consciousness, loss of function and low extremity numbness; PSYCHIATRIC: Negative for: anxiety, hallucinations and mood swings HEME/LYMPH: Negative for: anemia ALLERGIC/IMMUNOLOGIC: Negative for: HIV; latex allergy PHYSICAL EXAM CONSTITUTIONAL: Well appearing, well nourished, awake, alert, oriented to person, place, time/situation and in no apparent distress. HENMT: Airway patent, ears with clear tympanic membranes bilaterally. Nasal mucosa clear. Mouth with normal mucosa. Throat has no vesicles, no oropharyngeal exudates and uvula is midline. Face with no lymph node enlargement. EYES: Clear bilaterally, pupils equal, round and reactive to light. CARDIOVASCULAR: Normal rate, regular rhythm. Heart sounds S1, S2. No murmurs, rubs or gallops. PMI non-displaced. RESPIRATORY: Breath sounds clear and equal bilaterally. GASTROINTESTINAL: Abdomen soft, non-distended, no rebound, no guarding. Bowel sounds normal in all 4 quadrants. MUSCULOSKELETAL: Spine appears normal, range of motion is not limited, no muscle or joint tenderness. NEUROLOGICAL: Alert and oriented, no focal deficits, no motor or sensory deficits. SKIN: Skin normal color for race, warm, dry and intact. No evidence of trauma. PSYCHIATRIC: Alert and oriented to person, place, time/situation. normal mood and affect. No appar (more content not included)... Normal [facility] Risk Screen - Adult Emergenc yon 06-07-2023 Risk Screen - Adult Emergency Preferred Language: Preferred Language: Preferred Language for Discussing Health Care (patient/designee)Fran villalta Patient Preferred Pharmacy: Patient Preferred Pharmacy Statement: I have reviewed and updated the patient's preferred pharmacy selection for today's visit. Advanced Directives: Advance Directive/DNRno Family Violence Adult: Abuse Screen: Are you or have you been threatened or abused physically, emotionally, or sexually by anyoneno Learning Assessment (Patient): Learning Assessment (Patient): Patient is Able to be Assessed for Learningyes Factors Influencing Readiness to Learnacuteness of illness Factors that Impact Ability to Learnnone Devices/Methods Used to Communicatenone Learning Preferencesindividual instruction Cultural Considerationsnone Developmental Considerationsnone Zoroastrian Considerationsnone Learning Assessment (Other Learner): Learning Assessment (Other Learner): Other learner availableno Pressure Injury/TB/Substance: Pressure Injury: Pressure Injury Present on Admissionno Do you have a coughno Smoking Statusformer smoker Alcohol Usedaily Drug Usedenies Drug 2 Usedenies Admission Risk Screen: Significant IndicatorsComplete CAGE: CAGE: Is this an injured patient at a Trauma Center ([facility]/[place] /[place]): no Electronic Signatures: Lorna Tian (RN) (Signed 07-Jun-2023 08:06) Authored: Preferred Language, Patient Preferred Pharmacy, Advanced Directives, Family Violence Adult, Learning Assessment (Patient), Learning Assessment (Other Learner), Pressure Injury/TB/Substance, Pressure Injury, CAGE Last Updated: 07-Jun-2023 08:06 by Lorna Tian (RN) Normal [facility] TROPONIN I, HIGH SENSITIVITY on 06-07-2023 TROPONIN I, HIGH SENSITIVITY Canceled Normal [facility] Comment on above: Order Comment: TEST TROPONIN I, HIGH SENSITIVITY WAS CANCELLED, 06/07/2023 12:33 Result Comment: . Less than 99th percentile of normal range cutoff- Female and children under 18 years old <14 ng/L; Male <21 ng/L: Negative Repeat testing should be performed if clinically indicated. . Female and children under 18 years old 14-50 ng/L; Male 21-50 ng/L: Consistent with possible cardiac damage and possible increased clinical risk. Serial measurements may help to assess extent of myocardial damage. . >50 ng/L: Consistent with cardiac damage, increased clinical risk and myocardial infarction. Serial measurements may help assess extent of myocardial damage. . NOTE: Children less than 1 year old may have higher baseline troponin levels and results should be interpreted in conjunction with the overall clinical context. . NOTE: Troponin I testing is performed using a different testing methodology at [facility] than at other [facility]. Direct result comparisons should only be made within the same method. Performed By: #### T [facility] #### [address] [address] TROPONIN I, HIGH SENSITIVITY <3 Normal 0 - 20 [facility] Comment on above: Result Comment: . Less than 99th percentile of normal range cutoff- Female and children under 18 years old <14 ng/L; Male <21 ng/L: Negative Repeat testing should be performed if clinically indicated. . Female and children under 18 years old 14-50 ng/L; Male 21-50 ng/L: Consistent with possible cardiac damage and possible increased clinical risk. Serial measurements may help to assess extent of myocardial damage. . >50 ng/L: Consistent with cardiac damage, increased clinical risk and myocardial infarction. Serial measurements may help assess extent of myocardial damage. . NOTE: Children less than 1 year old may have higher baseline troponin levels and results should be interpreted in conjunction with the overall clinical context. . NOTE: Troponin I testing is performed using a different testing methodology at [facility] than at other [facility]. Direct result comparisons should only be made within the same method. Performed By: #### T [facility] #### [facility] [address] [place] [address] TROPONIN I, HIGH SENSITIVITY 3 ng/L Normal 0 - 20 [facility] Comment on above: Result Comment: . Less than 99th percentile of normal range cutoff- Female and children under 18 years old <14 ng/L; Male <21 ng/L: Negative Repeat testing should be performed if clinically indicated. . Female and children under 18 years old 14-50 ng/L; Male 21-50 ng/L: Consistent with possible cardiac damage and possible increased clinical risk. Serial measurements may help to assess extent of myocardial damage. . >50 ng/L: Consistent with cardiac damage, increased clinical risk and myocardial infarction. Serial measurements may help assess extent of myocardial damage. . NOTE: Children less than 1 year old may have higher baseline troponin levels and results should be interpreted in conjunction with the overall clinical context. . NOTE: Troponin I testing is performed using a different testing methodology at [facility] than at other [facility]. Direct result comparisons should only be made within the same method. Performed By: #### T [facility] #### [address] [address] Triage - EDon 06-07-2023 Triage - ED Quick Triage: The patient and/or guardian verbally acknowledges placement for services into the following (when Urgent Care Service hours are operating):emergency department Chart Review: ARRIVAL INFORMATION Mode of Arrival: pedestrian CHIEF COMPLAINT HOSEA ALVAREZ is a Male patient with a chief complaint of multiple medical complaints. Other Complaints: Pt was just seen here last night for same multiple complaints. Pt appears dis shoveled and homeless with multiple belongings Triage Date/Time: 07-Jun-2023 08:01 WILMAN: 3 Pain Rating (0-10): 0 = None Vital Signs: Temperature: 97.0F ( 36.1C) Blood Pressure: 146/97 Mean: Heart Rate: 61 Respiratory Rate: 16 Pulse Oximetry: 98% on room air, no respiratory support. Height: 5 feet 6.00 inches. 167.6 CM Weight: 209.4 pounds. Calculated 95.0 kg. (stated) Calculated BMI (kg/m2): 33.820 Calculated BSA (m2) 2.10 Lynda Coma Scale: Best Eye Response: (E4) spontaneous Best Motor Response: (M6) obeys commands Best Verbal Response: (V5) oriented Lynda Score: 15 Cough lasting greater than 3 weeks: no Allergies: yes Patient has homicidal thoughts: no Risk Screens Suicide Risk Screen In the Past Month: Have you wished you were or wished you could go to sleep and not wake up no In the Past Month: Have you had any actual thoughts of killing yourself no In Your Lifetime: Have you ever done anything, started to do anything, or prepared to do anything to end your life no Molina Fall Scale Screening Has the patient fallen before (or is the patient in the ED as a result of a fall) has not had a fall Does the patient have an impaired gait does not have impaired gait Is the patient cognitively impaired not cognitively impaired Interventions: Molina Fall Interventions: LOW INTERVENTIONS: *patient oriented to surroundings and call system, * patient/family falls education completed and documented, *patients fall status communicated during bedside handoff, *whiteboard updated, *mode of toileting discussed with patient, *bed in low position with brakes locked, *call light in reach, * non-skid footwear TRAVEL HISTORY Travel History Coronavirus Screening: no exposure or symptoms Travel Exposure History: NO travel to International locations in the past 30 days PAIN Pain Scale Used: SHANNON Pain Rating (0-10): 0 = None Past Medical History: Past Medical History Reviewedyes Electronic Signatures: Yamila Roach (ASST N MGR) (Signed 07-Jun-2023 10:17) Authored: Quick Triage, Chart Review Lorna TianRN) (Signed 07-Jun-2023 08:08) Authored: Quick Triage, Risk Screens, Pain, Travel History, Chart Review, Scores, Past Medical History Last Updated: 07-Jun-2023 10:17 by Yamila Roach (ASST N MGR) Normal [facility] BASIC METABOLIC PANELon - Anion gap [Moles/Vol] 13 mmol/L Normal 10 - 20 [facility] Comment on above: Performed By: #### B MP #### [facility] [address] [place] [address] Calcium [Mass/Vol] 9.2 mg/dL Normal 8.6 - 10.[address] [facility] Comment on above: Performed By: #### B MP #### [facility] [address] [place] [address] Chloride [Moles/Vol] 102 mmol/L Normal 98 - 107 [facility] Comment on above: Performed By: #### B MP #### [facility] [address] [place] [address] Creatinine [Mass/Vol] 1.02 mg/dL Normal 0.50 - 1.30 [facility] Comment on above: Performed By: #### B MP #### [facility] [address] [place] [address] GFR/1.73 sq M.predicted among non-blacks MDRD (S/P/Bld) [Vol rate/Area] 88 mL/min/{1.73_m2} Normal >90 [facility] Comment on above: Result Comment: CALC ULATIONS OF ESTIMATED GFR ARE PERFORMED USING THE 2020 CKD-EPI STUDY REFIT EQUATION WITHOUT THE RACE VARIABLE FOR THE IDMS-TRACEABLE CREATININE METHODS. https://jasn.asnjournals.org/content//ASN.469921 8669 Performed By: #### B MP #### [facility] [address] [place] [address] Glucose [Mass/Vol] 116 mg/dL High 74 - [address] [facility] Comment on above: Performed By: #### B MP #### [facility] [address] [place] [address] HCO3 (Bld) [Moles/Vol] 26 mmol/L Normal 21 - 32 [facility] Comment on above: Performed By: #### B MP #### [facility] [address] [place] [address] Potassium [Moles/Vol] 3.8 mmol/L Normal 3.5 - 5.3 [facility] Comment on above: Performed By: #### B MP #### [facility] [address] [place] [address] Sodium [Moles/Vol] 137 mmol/L Normal 136 - [address] [facility] Comment on above: Performed By: #### B MP #### [facility] [address] [place] [address] Urea nitrogen [Mass/Vol] 17 mg/dL Normal 6 - 23 [facility] Comment on above: Performed By: #### B MP #### [facility] [address] [place] [address] CBC AND DIFFERENTIALon 06-06 % AUTOMATED IMMATURE GRAN 0.3 % Normal 0.0 - 0.9 [facility] Comment on above: Result Comment: Kath ture Granulocyte Count (IG) includes promyelocytes, myelocytes and metamyelocytes but does not include bands. Percent differential counts (%) should be interpreted in the context of the absolute cell counts (cells/L). Performed By: #### C BCDF #### [facility] [address] [place] [address] Basophils (Bld) [#/Vol] 0.02 10*3/uL Normal 0.00 - 0.10 [facility] Comment on above: Performed By: #### C BCDF #### [facility] [address] [place] [address] Basophils/100 WBC (Bld) 0.5 % Normal 0.0 - 2.0 [facility] Comment on above: Performed By: #### C BCDF #### [facility] [address] [place] [address] Eosinophils (Bld) [#/Vol] 0.08 10*3/uL Normal 0.00 - 0.70 [facility] Comment on above: Performed By: #### C BCDF #### [facility] [address] [place] [address] Eosinophils/100 WBC (Bld) 2.1 % Normal 0.0 - 6.0 [facility] Comment on above: Performed By: #### C BCDF #### [facility] [address] [place] [address] Erythrocyte distribution width (RBC) [Ratio] 12.4 % Normal 11.5 - 14.5 [facility] Comment on above: Performed By: #### C BCDF #### [facility] [address] [place] [address] Hematocrit (Bld) [Volume fraction] 38.7 % Low 41.0 - 52.0 [facility] Comment on above: Performed By: #### C BCDF #### [facility] [address] [place] [address] Hemoglobin (Bld) [Mass/Vol] 13.3 g/dL Low 13.5 - 17.5 [facility] Comment on above: Performed By: #### C BCDF #### [facility] [address] [place] [address] Lymphocytes (Bld) [#/Vol] 0.84 10*3/uL Low 1.20 - 4.80 [facility] Comment on above: Performed By: #### C BCDF #### [facility] [address] [place] [address] Lymphocytes/100 WBC (Bld) 22.1 % Normal 13.0 - 44.0 [facility] Comment on above: Performed By: #### C BCDF #### [facility] [address] [place] [address] MCHC (RBC) [Mass/Vol] 34.4 g/dL Normal 32.0 - 36.0 [facility] Comment on above: Performed By: #### C BCDF #### [facility] [address] [place] [address] MCV (RBC) [Entitic vol] 88 fL Normal 80 - 100 [facility] Comment on above: Performed By: #### C BCDF #### [facility] [address] [place] [address] Monocytes (Bld) [#/Vol] 0.29 10*3/uL Normal 0.10 - 1.00 [facility] Comment on above: Performed By: #### C BCDF #### [facility] [address] [place] [address] Monocytes/100 WBC (Bld) 7.6 % Normal 2.0 - 10.0 [facility] Comment on above: Performed By: #### C BCDF #### [facility] [address] [place] [address] Neutrophils (Bld) [#/Vol] 2.56 10*3/uL Normal 1.20 - 7.70 [facility] Comment on above: Performed By: #### C BCDF #### [facility] [address] [place] [address] Neutrophils/100 WBC (Bld) 67.4 % Normal 40.0 - 80.0 [facility] Comment on above: Performed By: #### C BCDF #### [facility] [address] [place] [address] Platelets (Bld) [#/Vol] 144 10*3/uL Low 150 - 450 [facility] Comment on above: Performed By: #### C BCDF #### [facility] [address] [place] [address] RBC 4.41 x10E12/L Low 4.50 - 5.90 [facility] Comment on above: Performed By: #### C BCDF #### [facility] [address] [place] [address] WBC (Bld) [#/Vol] 3.8 10*3/uL Low 4.4 - 11.[address] [facility] Comment on above: Performed By: #### C BCDF #### [facility] [address] [place] [address] MAGNESIUMon 06-06-2023 Magnesium [Mass/Vol] 1.86 mg/dL Normal 1.60 - 2.40 [facility] Comment on above: Result Comment: MILD LIPEMIA DETECTED. The result may be falsely elevated due to lipemia or other interferents. Clinical correlation is recommended. Repeat testing may be considered. Performed By: #### M G #### [facility] [address] [place] [address] Provider Note - ED v3on 09- Provider Note - ED v3 Provider Note: Results/Vital Signs: Pediatric Clinical Scoring (YAKOV) is no recent YAKOV charted on this account Chart Review: ED NOTES ED NOTES: HPI: Patient presents via EMS with complaint of chest pain. Started suddenly today. Was actually seen in the ED at [facility] several days ago for similar complaint. Patient known to me from an outside facility. Complains of a pressure in the left chest. Nonradiating. Symptoms are mild and constant. ROS: Positive for chest pain. Unless otherwise noted all other review systems are negative. Hx: Reviewed in the nursing documentation. PE: General: Vitals noted, no distress. Afebrile. EENT: Posterior oropharynx normal. Moist mucous membranes. Cardiac: Regular, rate, rhythm, no murmur. Pulmonary: Lungs clear bilaterally with good aeration. No adventitious breath sounds. Abdomen: Soft, nonsurgical. Nontender. No peritoneal signs. Normoactive bowel sounds. Extremities: No peripheral edema. Negative Homans bilaterally, no cords. Skin: No rash. Warm and dry. Neuro: No focal neurologic deficits. Alert and oriented 3. Answered all questions appropriate. Psychiatric: Normal mood and affect Medical decision-making: Patient stable. Heart score 2. EKG and labs are nonacute. X-ray and shows no pneumothorax or pneumonia. He is well-known to me from visits outside of the [facility] system. Review of his records through care everywhere shows that he has multiple and extensive ER visits all across his [facility]. Low suspicion of ACS at this time. Patient remains normotensive and otherwise stable in the ED. I think it safe to discharge home. He is requesting some of his blood pressure medications administered here. We will give him a single dose and discharged home. I will discharge the patient home. Discussed the results of the exam and/or testing. Written instructions provided. Discussed return reasons, patient verbalizes understanding. Stress follow-up with PCP. Test interpretation: Please refer to the tests section. ED medications: Losartan, metoprolol Discharge medications: N/A Diagnoses excluded: STEMI, pneumonia, pneumothorax History obtained from: Patient, EMS External records reviewed: Records from [facility], [facility] Social barriers to care: Access to primary care. Assessment and plan: ED Dx Name:Chest pain Code:R07.9 Disclaimer: This note was dictated by speech recognition. Minor errors in furnace filler may be present. Please call if you have questions. HISTORY OF PRESENTING ILLNESS HOSEA is a 52 year old Male and was seen by me at 06-Jun-2023 18:36 for a chief complaint of chest pain . Other complaints include: Pt report chest pain for approx 20 min before arrival to ED. Pain is in L upper chest. No radiation. No n/v/d. Pt reports pain as pressure to L chest. Skin pwd. No diaphoresis reported. No abd pain. No headache, dizziness weakness or syncope. (1). Triage Information: Most recent Vital Sign Value Date Temp (F): 97.5 06-06-2023 18:28 Temp (C): 36.3 06-06-2023 18:28 Heart Rate (beats/min): 80 06-06-2023 18:28 Respirations (breaths/min): 21 06-06-2023 18:28 SpO2 (%): 97 06-06-2023 18:28 BP Systolic (mm Hg): 141 06-06-2023 18:28 BP Diastolic (mm Hg): 95 06-06-2023 18:28 PAST MEDICAL HISTORY ALLERGIES/INTOLERANCES: Allergy Allergen: Erythromycin Base Type: Drug Reaction: Unknown Allergen: Type: Food Reaction: Other Allergen: Cipro Type: Drug Reaction: Unknown Allergen: Ativan Type: Drug Reaction: Unknown Intolerance Allergen: polyethylene glycol 3350 Type: Drug Reaction: GI Upset HEALTH HISTORY: Family History Name:No family history of cancer Code:Z78.9 Name:No family history of coronary artery disease Code:Z78.9 Medical History Name:Chest pain Code:R07.9 Name:Renal artery stenosis Code:I70.1 Name:Pulmonary embolism Code:I26.99 Name:History of COVID-19 Code:Z86.16 Name:Ascending aortic aneurysm Code:I71.2 Name:Bipolar disorder Code:F31.9 Name:Palpitations Code:R00.2 Social History Name:Homeless Code:Z59.0 Name:Does not use illicit drugs Code:Z78.9 Name:Consumes alcohol occasionally Code:Z78.9 Name:Former smoker Code:Z87.891 OUTPATIENT MEDICATIONS: Home Medications Review Status for Reconciliation: N/A Med Status: Patient Currently Takes Medications Drug Name: cloNIDine 0.1 mg oral tablet Instructions: 1 tab(s) orally once a day, Drug Name: aspirin 81 mg oral tablet, chewable Instructions: 1 tab(s) chewed once a day Drug Name: atorvastatin 40 mg oral tablet Instructions: 1 tab(s) orally once a day Drug Name: polyethylene glycol 3350 oral powder for reconstitution Instructions: 17 gram(s) orally 2 times a day, As Needed -for constipation Drug Name: Citroma Angel 1.745 g/30 mL oral liqui (more content not included)... Normal [facility] Risk Screen - Adult Emergenc yon 06-06-2023 Risk Screen - Adult Emergency Preferred Language: Preferred Language: Preferred Language for Discussing Health Care (patient/designee)Fran villalta Patient Preferred Pharmacy: Patient Preferred Pharmacy Statement: I have reviewed and updated the patient's preferred pharmacy selection for today's visit. Advanced Directives: Advance Directive/DNRno Advance Directive Information Givenpatient/family declined Family Violence Adult: Abuse Screen: Are you or have you been threatened or abused physically, emotionally, or sexually by anyoneno Learning Assessment (Patient): Learning Assessment (Patient): Patient is Able to be Assessed for Learningyes Factors Influencing Readiness to Learnacuteness of illness Factors that Impact Ability to Learnnone Devices/Methods Used to Communicatenone Learning Preferencesindividual instruction Cultural Considerationsnone Developmental Considerationsnone Zoroastrian Considerationsnone Learning Assessment (Other Learner): Learning Assessment (Other Learner): Other learner availableno Pressure Injury/TB/Substance: Pressure Injury: Do you have a coughno Smoking Statusnever smoker Admission Risk Screen: Significant IndicatorsComplete CAGE: CAGE: Is this an injured patient at a Trauma Center ([facility]/[place] /[place]): no Electronic Signatures: Anni Sol (RN) (Signed 06-Jun-2023 19:00) Authored: Preferred Language, Patient Preferred Pharmacy, Advanced Directives, Family Violence Adult, Learning Assessment (Patient), Learning Assessment (Other Learner), Pressure Injury/TB/Substance, Pressure Injury, CAGE Last Updated: 06-Jun-2023 19:00 by Anni Sol (RN) Normal [facility] TROPONIN I, HIGH SENSITIVITY on 06-06-2023 TROPONIN I, HIGH SENSITIVITY Canceled Normal [facility] Comment on above: Order Comment: TEST TROPONIN I, HIGH SENSITIVITY WAS CANCELLED, 06/06/2023 21:11 discharged. Result Comment: . Less than 99th percentile of normal range cutoff- Female and children under 18 years old <14 ng/L; Male <21 ng/L: Negative Repeat testing should be performed if clinically indicated. . Female and children under 18 years old 14-50 ng/L; Male 21-50 ng/L: Consistent with possible cardiac damage and possible increased clinical risk. Serial measurements may help to assess extent of myocardial damage. . >50 ng/L: Consistent with cardiac damage, increased clinical risk and myocardial infarction. Serial measurements may help assess extent of myocardial damage. . NOTE: Children less than 1 year old may have higher baseline troponin levels and results should be interpreted in conjunction with the overall clinical context. . NOTE: Troponin I testing is performed using a different testing methodology at [facility] than at [facility]. Direct result comparisons should only be made within the same method. Performed By: #### C BCDF #### [address] [address] TROPONIN I, HIGH SENSITIVITY <3 Normal 0 - 20 [facility] Comment on above: Result Comment: . Less than 99th percentile of normal range cutoff- Female and children under 18 years old <14 ng/L; Male <21 ng/L: Negative Repeat testing should be performed if clinically indicated. . Female and children under 18 years old 14-50 ng/L; Male 21-50 ng/L: Consistent with possible cardiac damage and possible increased clinical risk. Serial measurements may help to assess extent of myocardial damage. . >50 ng/L: Consistent with cardiac damage, increased clinical risk and myocardial infarction. Serial measurements may help assess extent of myocardial damage. . NOTE: Children less than 1 year old may have higher baseline troponin levels and results should be interpreted in conjunction with the overall clinical context. . NOTE: Troponin I testing is performed using a different testing methodology at [facility] than at other [facility]. Direct result comparisons should only be made within the same method. Performed By: #### C BCDF #### [facility] [address] [place] [address] TROPONIN I, HIGH SENSITIVITY <3 Normal 0 - 20 [facility] Comment on above: Result Comment: . Less than 99th percentile of normal range cutoff- Female and children under 18 years old <14 ng/L; Male <21 ng/L: Negative Repeat testing should be performed if clinically indicated. . Female and children under 18 years old 14-50 ng/L; Male 21-50 ng/L: Consistent with possible cardiac damage and possible increased clinical risk. Serial measurements may help to assess extent of myocardial damage. . >50 ng/L: Consistent with cardiac damage, increased clinical risk and myocardial infarction. Serial measurements may help assess extent of myocardial damage. . NOTE: Children less than 1 year old may have higher baseline troponin levels and results should be interpreted in conjunction with the overall clinical context. . NOTE: Troponin I testing is performed using a different testing methodology at [facility] than at other [facility]. Direct result comparisons should only be made within the same method. Performed By: #### T [facility] #### [address] [address] Triage - EDon 06-06-2023 Triage - ED Quick Triage: The patient and/or guardian verbally acknowledges placement for services into the following (when Urgent Care Service hours are operating):emergency department Chart Review: PRIMARY ASSESSMENT ABCD Normal Findings: airway open and patent, breathing normal, circulation normal and alert and oriented ARRIVAL INFORMATION Means of Arrival: stretcher Mode of Arrival: ambulance Agency Name: [facility] Arrival From: home Accompanied By: self Language: Spoken Language Preferred: Zimbabwean Reading Language Preferred: Zimbabwean CHIEF COMPLAINT HOSEA ALVAREZ is a Male patient with a chief complaint of chest pain. Onset of the Complaint: 06-Jun-2023 Other Complaints: Pt report chest pain for approx 20 min before arrival to ED. Pain is in L upper chest. No radiation. No n/v/d. Pt reports pain as pressure to L chest. Skin pwd. No diaphoresis reported. No abd pain. No headache, dizziness weakness or syncope. Triage Date/Time: 06-Jun-2023 18:28 WILMAN: 3 Vital Signs: Temperature: 97.5F ( 36.3C) taken temporal Blood Pressure: 141/95 Mean: Heart Rate: 80 Respiratory Rate: 21 Pulse Oximetry: 97% on room air, no respiratory support. Height: 5 feet 6.00 inches. 167.6 CM Weight: 220.4 pounds. Calculated 100.0 kg. (stated) Calculated BMI (kg/m2): 35.600 Calculated BSA (m2) 2.16 [place] Coma Scale: Best Eye Response: (E4) spontaneous Best Motor Response: (M6) obeys commands Best Verbal Response: (V5) oriented Lynda Score: 15 Allergies: yes Patient has homicidal thoughts: no Symptoms Are POSITIVE For: pain Symptoms Are Negative For: anxiety, chills, diaphoresis, dyspnea, headache, loss of consciousness, nausea, numbness, tingling and weakness Activity At Onset: Rest Chest Pain Location-Left: upper chest Risk Screens Suicide Risk Screen In the Past Month: Have you wished you were or wished you could go to sleep and not wake up no In the Past Month: Have you had any actual thoughts of killing yourself no In Your Lifetime: Have you ever done anything, started to do anything, or prepared to do anything to end your life no Molina Fall Scale Screening Has the patient fallen before (or is the patient in the ED as a result of a fall) has not had a fall Does the patient have an impaired gait does not have impaired gait Is the patient cognitively impaired not cognitively impaired Interventions: Molina Fall Interventions: LOW INTERVENTIONS: *patient oriented to surroundings and call system, * patient/family falls education completed and documented, *patients fall status communicated during bedside handoff, *whiteboard updated, *mode of toileting discussed with patient, *bed in low position with brakes locked, *call light in reach, * non-skid footwear PAST MEDICAL HISTORY Immunization History: Last Known Tetanus Immunization: Unknown TRAVEL HISTORY Travel History Coronavirus Screening: no exposure or symptoms Travel Exposure History: NO travel to International locations in the past 30 days PAIN Pain Scale Used: SHANNON Past Medical History: Past Medical History Reviewedyes Electronic Signatures: Anni Sol (BROOK[place]NN) (Signed 06-Jun-2023 18:38) Authored: Quick Triage, Risk Screens, Pain, Arrival, ABCD, Immunizations, Travel History, Chart Review, Scores, Past Medical History Last Updated: 06-Jun-2023 18:38 by Anni Sol (BROOKLYNN) Normal [facility] CBC AND DIFFERENTIALon 06-04 % AUTOMATED IMMATURE GRAN 0.3 % Normal 0.0 - 0.9 [facility] Comment on above: Result Comment: Kath ture Granulocyte Count (IG) includes promyelocytes, myelocytes and metamyelocytes but does not include bands. Percent differential counts (%) should be interpreted in the context of the absolute cell counts (cells/L). Performed By: #### C BCDF #### [address] [address] Basophils (Bld) [#/Vol] 0.02 10*3/uL Normal 0.00 - 0.10 [facility] Comment on above: Performed By: #### C BCDF #### [address] [address] Basophils/100 WBC (Bld) 0.6 % Normal 0.0 - 2.0 [facility] Comment on above: Performed By: #### C BCDF #### [address] [address] Eosinophils (Bld) [#/Vol] 0.06 10*3/uL Normal 0.00 - 0.70 [facility] Comment on above: Performed By: #### C BCDF #### [address] [address] Eosinophils/100 WBC (Bld) 1.9 % Normal 0.0 - 6.0 [facility] Comment on above: Performed By: #### C BCDF #### [address] [address] Erythrocyte distribution width (RBC) [Ratio] 12.5 % Normal 11.5 - 14.5 [facility] Comment on above: Performed By: #### C BCDF #### [address] [address] Hematocrit (Bld) [Volume fraction] 43.0 % Normal 41.0 - 52.0 [facility] Comment on above: Performed By: #### C BCDF #### [address] [address] Hemoglobin (Bld) [Mass/Vol] 14.2 g/dL Normal 13.5 - 17.5 [facility] Comment on above: Performed By: #### C BCDF #### [address] [address] Lymphocytes (Bld) [#/Vol] 0.78 10*3/uL Low 1.20 - 4.80 [facility] Comment on above: Performed By: #### C BCDF #### [address] [address] Lymphocytes/100 WBC (Bld) 25.2 % Normal 13.0 - 44.0 [facility] Comment on above: Performed By: #### C BCDF #### [address] [address] MCHC (RBC) [Mass/Vol] 33.0 g/dL Normal 32.0 - 36.0 [facility] Comment on above: Performed By: #### C BCDF #### [address] [address] MCV (RBC) [Entitic vol] 89 fL Normal 80 - 100 [facility] Comment on above: Performed By: #### C BCDF #### [address] [address] Monocytes (Bld) [#/Vol] 0.28 10*3/uL Normal 0.10 - 1.00 [facility] Comment on above: Performed By: #### C BCDF #### [address] [address] Monocytes/100 WBC (Bld) 9.0 % Normal 2.0 - 10.0 [facility] Comment on above: Performed By: #### C BCDF #### [address] [address] Neutrophils (Bld) [#/Vol] 1.95 10*3/uL Normal 1.20 - 7.70 [facility] Comment on above: Performed By: #### C BCDF #### [address] [address] Neutrophils/100 WBC (Bld) 63.0 % Normal 40.0 - 80.0 [facility] Comment on above: Performed By: #### C BCDF #### [address] [address] Platelets (Bld) [#/Vol] 158 10*3/uL Normal 150 - 450 [facility] Comment on above: Performed By: #### C BCDF #### [address] [address] RBC 4.85 x10E12/L Normal 4.50 - 5.90 [facility] Comment on above: Performed By: #### C BCDF #### [address] [address] WBC (Bld) [#/Vol] 3.1 10*3/uL Low 4.4 - 11.3 [facility] Comment on above: Performed By: #### C BCDF #### [address] [address] COMPREHENSIVE PANELon 2022 Albumin [Mass/Vol] 4.5 g/dL Normal 3.4 - 5.0 [facility] Comment on above: Performed By: #### C MP #### [address] [address] ALP [Catalytic activity/Vol] 67 U/L Normal 33 - 120 [facility] Comment on above: Performed By: #### C MP #### [address] [address] ALT [Catalytic activity/Vol] 31 U/L Normal 10 - 52 [facility] Comment on above: Result Comment: Yanni ents treated with Sulfasalazine may generate falsely decreased results for ALT. Performed By: #### C MP #### [address] [address] Anion gap [Moles/Vol] 13 mmol/L Normal 10 - 20 [facility] Comment on above: Performed By: #### C MP #### [address] [address] AST [Catalytic activity/Vol] 22 U/L Normal 9 - 39 [facility] Comment on above: Performed By: #### C MP #### [address] [address] Bilirubin [Mass/Vol] 0.4 mg/dL Normal 0.0 - 1.2 [facility] Comment on above: Performed By: #### C MP #### [address] [address] Calcium [Mass/Vol] 9.5 mg/dL Normal 8.6 - 10.3 [facility] Comment on above: Performed By: #### C MP #### [address] [address] Chloride [Moles/Vol] 102 mmol/L Normal 98 - 107 [facility] Comment on above: Performed By: #### C MP #### [address] [address] Creatinine [Mass/Vol] 0.96 mg/dL Normal 0.50 - 1.30 [facility] Comment on above: Performed By: #### C MP #### [address] [address] eGFR MALE >90 Normal >90 [facility] Comment on above: Result Comment: CALC ULATIONS OF ESTIMATED GFR ARE PERFORMED USING THE 2020 CKD-EPI STUDY REFIT EQUATION WITHOUT THE RACE VARIABLE FOR THE IDMS-TRACEABLE CREATININE METHODS. https://jasn.asnjournals.org/content/early//ASN.616118 3646 Performed By: #### C MP #### [address] [address] Glucose [Mass/Vol] 99 mg/dL Normal 74 - 99 [facility] Comment on above: Performed By: #### C MP #### [address] [address] HCO3 (Bld) [Moles/Vol] 27 mmol/L Normal 21 - 32 [facility] Comment on above: Performed By: #### C MP #### [address] [address] Potassium [Moles/Vol] 3.7 mmol/L Normal 3.5 - 5.3 [facility] Comment on above: Performed By: #### C MP #### [address] [address] Protein [Mass/Vol] 7.6 g/dL Normal 6.4 - 8.2 [facility] Comment on above: Performed By: #### C MP #### [address] [address] Sodium [Moles/Vol] 138 mmol/L Normal 136 - 145 [facility] Comment on above: Performed By: #### C MP #### [address] [address] Urea nitrogen [Mass/Vol] 14 mg/dL Normal 6 - 23 [facility] Comment on above: Performed By: #### C MP #### [address] [address] D-DIMER, VTE EXCLUSIONon D-DIMER, VTE EXCLUSION 278 ng/mL FEU Normal < or = 500 [facility] Comment on above: Result Comment: The VTE Exclusion D-Dimer assay is reported in ng/mL Fibrinogen Equivalent Units (FEU). Per manufacturers instructions for use, a value of less than 500 ng/mL (FEU) may help to exclude DVT or PE in outpatients when the assay is used with a clinical pretest probability assessment. ([facility] must utilize and document eCalc Wells Score Deep Vein Thrombosis Risk for DVT exclusion only; Emergency Department should utilize Guidelines for Emergency Department Use of the VTE Exclusion D-Dimer and Clinical Pretest probability assessment model for DVT or PE exclusion.) Performed By: #### D IMEX #### [address] [address] MAGNESIUMon 06-04-2023 Magnesium [Mass/Vol] 1.87 mg/dL Normal 1.60 - 2.40 [facility] Comment on above: Performed By: #### M G #### [address] [address] PT/INRon 06-04-2023 PT Coag (PPP) [Time] 10.9 s Normal 9.8 - 12.8 [facility] Comment on above: Result Comment: Note new reference range as of 03/12/2023 at 10:00am. Performed By: #### P TINR #### [address] [address] PT, INR 1.0 Normal 0.9 - 1.1 [facility] Comment on above: Performed By: #### P TINR #### [address] [place] [address] Provider Note - ED v3on 05-24 Provider Note - ED v3 Provider Note: Results/Vital Signs: Pediatric Clinical Scoring (YAKOV) is no recent YAKOV charted on this account Chart Review: ED NOTES ED NOTES: HPI: Patient is a 52-year-old male brought to the ED today via EMS for chest pain. Patient explains that he was at the gas station when he started having left-sided chest pain radiating into his left shoulder. He reports a previous history of CA, and states that he wants his troponin checked. Patient further explains that he is from [place], and says that he has been unable to fill his metoprolol and losartan prescriptions here in [place], but he did take his clonidine today. He otherwise missed today's doses of his metoprolol and losartan. Patient took one of his own sublingual nitro prior to arrival, and was administered aspirin 324 mg by EMS. He states that his pain has now improved. Otherwise denies any recent fever, cough, shortness of breath, abdominal pain, nausea, vomiting, hemoptysis, lower extremity pain or swelling. Limitations to history: None Physical Exam: Constitutional: Alert, lying on the stretcher. Nontoxic appearing. No acute distress. HENT: Normocephalic and atraumatic. Extraocular movements intact. Cardiovascular: Normal rate and regular rhythm. Normal peripheral pulses. Normal heart sounds. Pulmonary: Pulmonary effort is normal. No respiratory distress. Normal breath sounds. No wheezing. Abdominal: Abdomen is soft, nondistended. No tenderness to palpation. No rebound or guarding. Musculoskeletal: No swelling. No bony tenderness to palpation of the extremities. Skin: Warm and dry. Neurological: No focal deficit present. Alert and oriented x3. HISTORY OF PRESENTING ILLNESS HOSEA is a 52 year old Male and was seen by me at 04-Jun-2023 14:56 for a chief complaint of chest pain. Other complaints include: Pt states having CP on L side of chest and going into L arm. 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 Pt took 1 nitro and squad gave 324 ASA. Pt states he had a heart attack about 1 year ago. Triage Information: Most recent Vital Sign Value Date Temp (F): 97.8 06-04-2023 15:07 Temp (C): 36.5 06-04-2023 15:07 Heart Rate (beats/min): 68 06-04-2023 15:07 Respirations (breaths/min): 17 06-04-2023 15:07 SpO2 (%): 96 06-04-2023 15:07 BP Systolic (mm Hg): 125 06-04-2023 15:07 BP Diastolic (mm Hg): 80 06-04-2023 15:07 PAST MEDICAL HISTORY ALLERGIES/INTOLERANCES: Allergy Allergen: Erythromycin Base Type: Drug Reaction: Unknown Allergen: Type: Food Reaction: Other Allergen: Cipro Type: Drug Reaction: Unknown Allergen: Ativan Type: Drug Reaction: Unknown Intolerance Allergen: polyethylene glycol 3350 Type: Drug Reaction: GI Upset HEALTH HISTORY: Family History Name:No family history of cancer Code:Z78.9 Name:No family history of coronary artery disease Code:Z78.9 Medical History Name:Chest pain Code:R07.9 Name:Renal artery stenosis Code:I70.1 Name:Pulmonary embolism Code:I26.99 Name:History of COVID-19 Code:Z86.16 Name:Ascending aortic aneurysm Code:I71.2 Name:Bipolar disorder Code:F31.9 Name:Palpitations Code:R00.2 Social History Name:Homeless Code:Z59.0 Name:Does not use illicit drugs Code:Z78.9 Name:Consumes alcohol occasionally Code:Z78.9 Name:Former smoker Code:Z87.891 OUTPATIENT MEDICATIONS: Home Medications Review Status for Reconciliation: Not Done Med Status: Patient Currently Takes Medications Drug Name: cloNIDine 0.1 mg oral tablet Instructions: 1 tab(s) orally once a day, Drug Name: aspirin 81 mg oral tablet, chewable Instructions: 1 tab(s) chewed once a day Drug Name: atorvastatin 40 mg oral tablet Instructions: 1 tab(s) orally once a day Drug Name: polyethylene glycol 3350 oral powder for reconstitution Instructions: 17 gram(s) orally 2 times a day, As Needed -for constipation Drug Name: Citroma Angel 1.745 g/30 mL oral liquid Instructions: 300 milliliter(s) orally once, As Needed -for constipation Drug Name: metoprolol succinate 25 mg oral tablet, extended release Instructions: 1 tab(s) orally once a day Drug Name: losartan 50 mg oral tablet Instructions: 1 tab(s) orally once a day SIGNIFICANT EVENTS: Past Medical History Description:Hypertension (HTN) Description:Abdominal Aortic Aneurysm (AAA) Description:Heart murmur Description:Arrythmia Additional Notes: inverted T waves Description:RENAL STENOSIS Description:intestinal tumor CRITICAL CARE RESULTS: Recent Lab Results: I have reviewed these laboratory results: Troponin I, High Sensitivity Trending View [id number] 16:54:00 04-Jun-2023 15:00:00 Troponin I, High Sensitivity3 3 PT + INR, Plasma 04-Jun-2023 15:31:00 ResultValue Prothrombin Time, Plasma 10.9 International Normalized Ratio, Plasma 1.0 D-Dimer, VTE Exclusion 12- (more content not included)... Normal [facility] Risk Screen - Adult Emergenc yon 06-04-2023 Risk Screen - Adult Emergency Preferred Language: Preferred Language: Preferred Language for Discussing Health Care (patient/designee)Fran villalta Patient Preferred Pharmacy: Patient Preferred Pharmacy Statement: I have reviewed and updated the patient's preferred pharmacy selection for today's visit. Advanced Directives: Advance Directive/DNRno Family Violence Adult: Abuse Screen: Are you or have you been threatened or abused physically, emotionally, or sexually by anyoneno Learning Assessment (Patient): Learning Assessment (Patient): Patient is Able to be Assessed for Learningyes Factors Influencing Readiness to Learnacuteness of illness Factors that Impact Ability to Learnnone Devices/Methods Used to Communicatenone Learning Preferencesverbal instruction; written material Cultural Considerationsnone Developmental Considerationsnone Zoroastrian Considerationsnone Learning Assessment (Other Learner): Learning Assessment (Other Learner): Other learner availableno Pressure Injury/TB/Substance: Pressure Injury: Do you have a coughno Smoking Statusnever smoker Alcohol Usedaily Drug Usedenies Substance Comment1 beer daily Admission Risk Screen: Significant IndicatorsComplete CAGE: CAGE: Is this an injured patient at a Trauma Center ([facility]/[place] /[place]): no Electronic Signatures: Megan Almonte (RN) (Signed 04-Jun-2023 15:11) Authored: Preferred Language, Patient Preferred Pharmacy, Advanced Directives, Family Violence Adult, Learning Assessment (Patient), Learning Assessment (Other Learner), Pressure Injury/TB/Substance, Pressure Injury, CAGE Last Updated: 04-Jun-2023 15:11 by Megan Almonte (RN) Normal [facility] TROPONIN I, HIGH SENSITIVITY on 06-04-2023 TROPONIN I, HIGH SENSITIVITY 3 ng/L Normal 0 - 20 [facility] Comment on above: Result Comment: . Less than 99th percentile of normal range cutoff- Female and children under 18 years old <14 ng/L; Male <21 ng/L: Negative Repeat testing should be performed if clinically indicated. . Female and children under 18 years old 14-50 ng/L; Male 21-50 ng/L: Consistent with possible cardiac damage and possible increased clinical risk. Serial measurements may help to assess extent of myocardial damage. . >50 ng/L: Consistent with cardiac damage, increased clinical risk and myocardial infarction. Serial measurements may help assess extent of myocardial damage. . NOTE: Children less than 1 year old may have higher baseline troponin levels and results should be interpreted in conjunction with the overall clinical context. . NOTE: Troponin I testing is performed using a different testing methodology at [facility] than at other [facility]. Direct result comparisons should only be made within the same method. Performed By: #### T [facility] #### [address] [address] TROPONIN I, HIGH SENSITIVITY Canceled Normal [facility] Comment on above: Order Comment: TEST TROPONIN I, HIGH SENSITIVITY WAS CANCELLED, 06/04/2023 16:15 Result Comment: . Less than 99th percentile of normal range cutoff- Female and children under 18 years old <14 ng/L; Male <21 ng/L: Negative Repeat testing should be performed if clinically indicated. . Female and children under 18 years old 14-50 ng/L; Male 21-50 ng/L: Consistent with possible cardiac damage and possible increased clinical risk. Serial measurements may help to assess extent of myocardial damage. . >50 ng/L: Consistent with cardiac damage, increased clinical risk and myocardial infarction. Serial measurements may help assess extent of myocardial damage. . NOTE: Children less than 1 year old may have higher baseline troponin levels and results should be interpreted in conjunction with the overall clinical context. . NOTE: Troponin I testing is performed using a different testing methodology at [facility] than at other [facility]. Direct result comparisons should only be made within the same method. Performed By: #### T [facility] #### [address] [place] [address] TROPONIN I, HIGH SENSITIVITY 3 ng/L Normal 0 - 20 [facility] Comment on above: Result Comment: . Less than 99th percentile of normal range cutoff- Female and children under 18 years old <14 ng/L; Male <21 ng/L: Negative Repeat testing should be performed if clinically indicated. . Female and children under 18 years old 14-50 ng/L; Male 21-50 ng/L: Consistent with possible cardiac damage and possible increased clinical risk. Serial measurements may help to assess extent of myocardial damage. . >50 ng/L: Consistent with cardiac damage, increased clinical risk and myocardial infarction. Serial measurements may help assess extent of myocardial damage. . NOTE: Children less than 1 year old may have higher baseline troponin levels and results should be interpreted in conjunction with the overall clinical context. . NOTE: Troponin I testing is performed using a different testing methodology at [facility] than at other [facility]. Direct result comparisons should only be made within the same method. Performed By: #### T [facility] #### [address] [address] Triage - EDon 06-04-2023 Triage - ED Chart Review: ARRIVAL INFORMATION Mode of Arrival: ambulance Agency Name: [facility] CHIEF COMPLAINT HOSEA ALVAREZ is a Male patient with a chief complaint of chest pain. Other Complaints: Pt states having CP on L side of chest and going into L arm. 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 Pt took 1 nitro and squad gave 324 ASA. Pt states he had a heart attack about 1 year ago Triage Date/Time: 04-Jun-2023 15:07 WILMAN: 2 Pain Rating (0-10): 4 = Moderate Vital Signs: Temperature: 97.8F ( 36.5C) taken temporal Blood Pressure: 125/80 Mean: Heart Rate: 68 Respiratory Rate: 17 Pulse Oximetry: 96% on room air, no respiratory support. Height: 5 feet 6.00 inches. 167.6 CM Weight: 200.6 pounds. Calculated 91.0 kg. (stated) Calculated BMI (kg/m2): 32.396 Calculated BSA (m2) 2.06 [place] Coma Scale: Best Eye Response: (E4) spontaneous Best Motor Response: (M6) obeys commands Best Verbal Response: (V5) oriented Lynda Score: 15 Cough lasting greater than 3 weeks: no Allergies: yes Patient has homicidal thoughts: no Risk Screens Suicide Risk Screen In the Past Month: Have you wished you were or wished you could go to sleep and not wake up no In the Past Month: Have you had any actual thoughts of killing yourself no In Your Lifetime: Have you ever done anything, started to do anything, or prepared to do anything to end your life no Molina Fall Scale Screening Has the patient fallen before (or is the patient in the ED as a result of a fall) has not had a fall Does the patient have an impaired gait has impaired gait Is the patient cognitively impaired not cognitively impaired Molina Fall Scale History of falling (immediate or previous) no (0) Secondary Diagnosis yes (15) Intravenous Therapy/ Heparin/Saline Lock yes (20) Gait/Transferring weak (10) Ambulatory Aids crutches/walker/cane (15) Mental Status oriented to own ability (0) Molina Fall Risk Score: 60 Interventions: Molina Fall Interventions: HIGH INTERVENTIONS *Low and Moderate Interventions Plus: * supervised toileting at all times TRAVEL HISTORY Travel History Coronavirus Screening: no exposure or symptoms Travel Exposure History: NO travel to International locations in the past 30 days PAIN Pain Scale Used: SHANNON Pain Rating (0-10): 4 = Moderate Past Medical History: Past Medical History Reviewedyes Electronic Signatures: Megan Almonte (BROOKLYNN) (Signed 04-Jun-2023 15:11) Authored: Quick Triage, Risk Screens, Pain, Travel History, Chart Review, Scores, Past Medical History Last Updated: 04-Jun-2023 15:11 by Megan Almonte (BROOKLYNN) Normal [facility] BASIC METABOLIC PANELon 09-0 Anion gap [Moles/Vol] 12 mmol/L Normal 10-20 [facility] Comment on above: Performed By: #### C H8, ETOH, HEPATIC #### [facility] [address] [place], [place] [address] [address] Calcium [Mass/Vol] 8.8 mg/dL Normal 8.4-10.4 [facility] Comment on above: Performed By: #### C H8, ETOH, HEPATIC #### [facility] [place] [address] Chloride [Moles/Vol] 102 mmol/L Normal 97-111 [facility] Comment on above: Performed By: #### C H8, ETOH, HEPATIC #### [facility] [address] [place] [address] [place] [address] CO2 [Moles/Vol] 26 mmol/L Normal 21-30 [facility] Comment on above: Performed By: #### C H8, ETOH, HEPATIC #### [facility] [address] [place] [address] [place] [address] Creatinine [Mass/Vol] 1.05 mg/dL Normal 0.80-1.30 [facility] Comment on above: Performed By: #### C H8, ETOH, HEPATIC #### [facility] [address] [place] [address] [place] [address] ESTIMATED GFR (CKD-EPI) 86 mL/min/1.73sqm Normal >=60 [facility] Comment on above: Result Comment: 2020 CKD EPI Equation using Creatinine without Race Comment: Estimated glomerular filtration rate (eGFR) is calculated without a race coefficient. Values should be interpreted in the context of the patient's full clinical presentation. Reference: 1. Evan C, Bajoy M, Aleena BARTH, et al.. A Unifying Approach for GFR Estimation: Recommendations of the NKF-ASN Task Force on Reassessing the Inclusion of Race in Diagnosing Kidney Disease. Welsh Journal of Kidney Diseases 2021;79(2):268-88.e1. 2. N Engl J Med 1 Vol. 385 Issue 19 Pages 5603-8938 Performed By: #### C H8, ETOH, HEPATIC #### [facility] [address] [place] [address] [place] [address] Glucose [Mass/Vol] 111 mg/dL High 68-110 [facility] Comment on above: Performed By: #### C H8, ETOH, HEPATIC #### [facility] [address] [place] [address] [place] [address] Potassium [Moles/Vol] 3.6 mmol/L Normal 3.3-5.3 [facility] Comment on above: Performed By: #### C H8, ETOH, HEPATIC #### [facility] [address] [facility] [place] [address] Sodium [Moles/Vol] 136 mmol/L Normal 135-148 [facility] Comment on above: Performed By: #### C H8, ETOH, HEPATIC #### [facility] [address] [facility] [place] [address] Urea nitrogen [Mass/Vol] 15 mg/dL Normal 8-22 [facility] Comment on above: Performed By: #### C H8, ETOH, HEPATIC #### [facility] [address] [facility] [place] [address] Basic metabolic 2000 panelOr dered By: Kaleigh Lewis on 05-30-2023 Anion gap [Moles/Vol] 12 mmol/L 10 - 20 [facility] Calcium [Mass/Vol] 8.8 mg/dL 8.4 - 10. 4 mg/dL [facility] Chloride [Moles/Vol] 102 mmol/L 97 - 11 1 mmol/L [facility] CO2 [Moles/Vol] 26 mmol/L 21 - 30 mmol/L [facility] Creatinine [Mass/Vol] 1.05 mg/dL 0.80 - 1.30 mg/dL [facility] GFR/1.73 sq M.predicted MDRD (S/P/Bld) [Vol rate/Area] 86 mL/min/{1.73_m2} - PINF [facility] Comment on above: 2020 CKD EPI Equatio n using Creatinine without Race Comment: Estimated glomerular filtration rate (eGFR) is calculated without a race coefficient. Values should be interpreted in the context of the patient's full clinical presentation. Reference: 1. Evan C, Joann M, Aleena DC, et al.. A Unifying Approach for GFR Estimation: Recommendations of the NKF-ASN Task Force on Reassessing the Inclusion of Race in Diagnosing Kidney Disease. Welsh Journal of Kidney Diseases 202;79(2):268-88.e1. 2. N Engl J Med 2020 Vol. 385 Issue 19 Pages 8901-4665 Glucose [Mass/Vol] 111 mg/dL High 68 - 110 mg/dL [facility] Interpretation and review of laboratory results Abnormal [facility] Potassium [Moles/Vol] 3.6 mmol/L 3.3 - 5.3 mmol/L [facility] Sodium [Moles/Vol] 136 mmol/L 135 - 148 mmol/L [facility] Urea nitrogen [Mass/Vol] 15 mg/dL 8 - 22 mg/dL [facility] CBC WITH DIFFERENTIALon 0 Basophils (Bld) [#/Vol] 0.00 10*3/uL Normal 0.00-0.20 [facility] Comment on above: Performed By: #### C BCDSAT #### [facility] [address] [place] [address] [place] [address] Basophils/100 WBC (Bld) 0.3 % Normal <=1.9 [facility] Comment on above: Performed By: #### C BCDSAT #### [facility] [address] [place] [address] [place] [address] Eosinophils (Bld) [#/Vol] 0.10 10*3/uL Normal 0.00-0.70 [facility] Comment on above: Performed By: #### C BCDSAT #### [facility] [address] [place] [address] [place] [address] Eosinophils/100 WBC (Bld) 1.9 % Normal 0.1-4.0 [facility] Comment on above: Performed By: #### C BCDSAT #### [facility] [address] [place] [address] [place] [address] Erythrocyte distribution width (RBC) [Ratio] 13.4 % Normal 11.5-14.5 [facility] Comment on above: Performed By: #### C BCDSAT #### [facility] [address] [place] [address] [place] [address] Hematocrit (Bld) [Volume fraction] 37.1 % Low 41.0-53.0 [facility] Comment on above: Performed By: #### C BCDSAT #### [facility] [address] [place] [address] [place] [address] Hemoglobin (Bld) [Mass/Vol] 12.6 g/dL Low 13.9-16.3 [facility] Comment on above: Performed By: #### C BCDSAT #### [facility] [address] [place] [address] [place] [address] Lymphocytes (Bld) [#/Vol] 0.90 10*3/uL Low 1.00-4.80 [facility] Comment on above: Performed By: #### C BCDSAT #### [facility] [address] [place] [address] [place] [address] Lymphocytes/100 WBC (Bld) 26.3 % Normal 24.0-44.0 [facility] Comment on above: Performed By: #### C BCDSAT #### [facility] [address] [place] [address] [place] [address] MCH (RBC) [Entitic mass] 29.5 pg Normal 26.0-34.0 [facility] Comment on above: Performed By: #### C BCDSAT #### [facility] [address] [place] [address] [place] [address] MCHC (RBC) [Mass/Vol] 33.8 g/dL Normal 32.0-35.9 [facility] Comment on above: Performed By: #### C BCDSAT #### [facility] [address] [place] [address] [place] [address] MCV (RBC) [Entitic vol] 87 fL Normal 80-100 [facility] Comment on above: Performed By: #### C BCDSAT #### [facility] [address] [place] [address] [place] [address] MONOCYTE DISTRIBUTION WIDTH Normal [facility] Comment on above: Performed By: #### C BCDSAT #### [facility] [address] [place] [address] [place] [address] Monocytes (Bld) [#/Vol] 0.30 10*3/uL Normal 0.20-1.00 [facility] Comment on above: Performed By: #### C BCDSAT #### [facility] [address] [place] [address] [place] [address] Monocytes/100 WBC (Bld) 7.8 % Normal 2.0-11.0 [facility] Comment on above: Performed By: #### C BCDSAT #### [facility] [address] [place] [address] [place] [address] Neutrophils (Bld) [#/Vol] 2.10 10*3/uL Normal 1.50-8.00 [facility] Comment on above: Performed By: #### C BCDSAT #### [facility] [address] [place] [address] [place] [address] Neutrophils/100 WBC (Bld) 63.7 % Normal 31.0-76.0 [facility] Comment on above: Performed By: #### C BCDSAT #### [facility] [address] [place] [address] [place] [address] Nucleated RBC (Bld) [#/Vol] 0.1 10*3/uL Normal [facility] Comment on above: Performed By: #### C BCDSAT #### [facility] [address] [place] [address] [place] [address] Nucleated RBC (Bld) [#/Vol] 0.00 10*3/uL Normal [facility] Comment on above: Performed By: #### C BCDSAT #### [facility] [address] [place] [address] [place] [address] Platelet mean volume (Bld) [Entitic vol] 9.6 fL Normal 7.5-11.2 [facility] Comment on above: Performed By: #### C BCDSAT #### [facility] [address] [place] [address] [place] [address] Platelets (Bld) [#/Vol] 138 10*3/uL Low 150-400 [facility] Comment on above: Performed By: #### C BCDSAT #### [facility] [address] [place] [address] [place] [address] RBC (Bld) [#/Vol] 4.25 10*6/uL Low 4.50-5.90 [facility] Comment on above: Performed By: #### C RUSSAT #### [facility] [address] [place] [address] [place] [address] WBC (Bld) [#/Vol] 3.3 10*3/uL Low 4.5-11.5 [facility] Comment on above: Performed By: #### C RUSSAT #### [facility] [address] [place] [address] [place] [address] Basophils (Bld) [#/Vol] 0.00 10*3/uL 0.00 - 0.20 K/uL [facility] Basophils/100 WBC (Bld) 0.3 % NINF - 1.9 % [facility] Eosinophils (Bld) [#/Vol] 0.10 10*3/uL 0.00 - 0.70 K/uL [facility] Eosinophils/100 WBC (Bld) 1.9 % 0.1 - 4.0 % [facility] Erythrocyte distribution width (RBC) [Ratio] 13.4 % 11.5 - 14.5 % [facility] Hematocrit (Bld) [Volume fraction] 37.1 % Low 41.0 - 53.0 % [facility] Hemoglobin (Bld) [Mass/Vol] 12.6 g/dL Low 13.9 - 16.3 g/dL [facility] Interpretation and review of laboratory results Abnormal [facility] Lymphocytes (Bld) [#/Vol] 0.90 10*3/uL Low 1.00 - 4.80 K/uL [facility] Lymphocytes/100 WBC (Bld) 26.3 % 24.0 - 44.0 % [facility] MCH (RBC) [Entitic mass] 29.5 pg 26.0 - 34.0 pg [facility] MCHC (RBC) [Mass/Vol] 33.8 g/dL 32.0 - 35.9 g/dL [facility] MCV (RBC) [Entitic vol] 87 fL 80 - 100 fL [facility] Monocyte distribution width Auto (Bld) [Entitic vol] [facility] Monocytes (Bld) [#/Vol] 0.30 10*3/uL 0.20 - 1.00 K/uL [facility] Monocytes/100 WBC (Bld) 7.8 % 2.0 - 11.0 % [facility] Neutrophils (Bld) [#/Vol] 2.10 10*3/uL 1.50 - 8.00 K/uL [facility] Neutrophils/100 WBC (Bld) 63.7 % 31.0 - 76.0 % [facility] Nucleated RBC (Bld) [#/Vol] 0.00 10*3/uL [facility] Nucleated RBC/100 WBC (Bld) [Ratio] 0.1 % [facility] Platelet mean volume (Bld) [Entitic vol] 9.6 fL 7.5 - 11.2 fL [facility] Platelets (Bld) [#/Vol] 138 10*3/uL Low 150 - 400 K/uL [facility] RBC (Bld) [#/Vol] 4.25 10*6/uL Low [facility] WBC (Bld) [#/Vol] 3.3 10*3/uL Low 4.5 - 11.5 K/uL [facility] ED Provider Noteson 05-30-20 [employer] [employer] Authentication Interface Message Text EMERGENCY DEPARTMENT - VISIT NOTE ------ HISTORY OF PRESENT ILLNESS -- Chief Complaint Patient presents with * Dizziness Dizziness upon standing Escort Patients: not needed - patient preferred language is Zimbabwean. 52-year-old male was apparently on a park bench and called for EMS for dizziness. He states that he was in the [employer] I asked what he was doing there and he states that he was hiking . However he is accompanied by a huge bag full of his belongings. I asked where he lives or if he has a home and he states that he lives in [place]. Yesterday he was seen at 3 different [facility] Emergency department's, the 1st time at [facility] where he apparently was acting unruly at a gas station and ended up signing out AMA. He was then seen at [facility] for dark stools and palpitations and was treated and released and finally he was evaluated at [facility] and treated and released. Indeed he hashad at least 2 other ER visits to other facilities in the last 10 days. Patient states that he feels dizzy when he stands. No headache chest pain or abdominal pain. No vomiting or diarrhea. He feels like he maybe dehydrated. He states that he had to beers earlier today as well as a cup of coffee which can act as a vasoconstrictor History provided by: PatientLanguage film archivist used: No REVIEW OF SYSTEMS Review of Systems Constitutional: Negative for fever. HENT: Negative for facial swelling. Eyes: Negative for redness. Respiratory: Negative for cough and shortness of breath. Gastrointestinal: Negative for diarrhea and vomiting. Genitourinary: Negative for flank pain. Musculoskeletal: Negative for neck stiffness. Skin: Negative for rash. Neurological: Positive for dizziness. Negative for facial asymmetry, speech difficulty and headaches. Psychiatric/Behavioral: Negative for confusion, hallucinations and suicidal ideas. PAST HISTORY Pertinent Past History: Past Medical History: Diagnosis Date * Bipolar 1 disorder (HCC) * Homeless * Thoracic aortic aneurysm (HCC) Patient Active Problem List: BPPV (benign paroxysmal positional vertigo) [H81.10] Vestibular neuritis [H81.20] Bipolar disorder ([facility]) [F31.9] Essential hypertension [I10] Paresthesia [R20.2] Homeless [Z59.00] Pulmonary embolism ([facility]) [I26.99] Aneurysm of thoracic aorta ([facility]) [I71.20] Anxiety [F41.9] Renal artery stenosis ([facility]) [I70.1] Pertinent Social History: Social History Tobacco Use * Smoking status: Every Day * Smokeless tobacco: Never Vaping Use * Vaping Use: Never used Substance Use Topics * Alcohol use: Yes * Drug use: Never PHYSICAL EXAM BP 118/69 Pulse 71 Temp 98.7 ???F (37.1 ???C) (Temporal) Resp 18 SpO2 96% Physical Exam Vitals and nursing note reviewed. Constitutional: General: He is not in acute distress. Appearance: He is not ill-appearing, toxic-appearing or diaphoretic. HENT: Head: Normocephalic and atraumatic. Right Ear: Tympanic membrane, ear canal and external ear normal. Left Ear: Tympanic membrane, ear canal and external ear normal. Nose: Nose normal. Mouth/Throat: Mouth: Mucous membranes are moist. Pharynx: Oropharynx is clear. Eyes: Extraocular Movements: Extraocular movements intact. Conjunctiva/sclera: Conjunctivae normal. Pupils: Pupils are equal, round, and reactive to light. Cardiovascular: Rate and Rhythm: Normal rate and regular rhythm. Heart sounds: Normal heart sounds. No murmur heard. Pulmonary: Effort: Pulmonary effort is normal. No respiratory distress. Breath sounds: Normal breath sounds. Abdominal: General: Abdomen is flat. There is no distension. Tenderness: There is no abdominal tenderness. Musculoskeletal: General: No swelling or tenderness. Normal range of motion. Cervical back: Normal range of motion. No rigidity. Right lower leg: No edema. Left lower leg: No edema. Lymphadenopathy: Cervical: No cervical adenopathy. Skin: General: Skin is warm and dry. Capillary Refill: Capillary refill takes less than 2 seconds. Neurological: General: No focal deficit present. Mental Status: He is alert and oriented to person, place, and time. MEDICAL DECISION MAKING and ED COURSE EMERGENCY DEPARTMENT EKG INTERPRETATION Rhythm: Normal sinus rhythm Rate: 69 NORMAL Normal conduction / intervals Left ventricular hypertrophy by voltage criteria Early repolarization Comparison to prior: 05/20/2021 Impression: Normal sinus rhythm, LVH, early repolarization unchanged Personally reviewed and interpretated by Riley Crawford MD Course: ED Course as of 05/30/23 1719 (more content not included)... Normal [facility] [employer] Hand Authentication Interface Message Text Normal [facility] ETHANOL, SERUMon 05-30-2023 Ethanol [Mass/Vol] 41 mg/dL High None Detected [facility] Comment on above: Performed By: #### C H8, ETOH, HEPATIC #### [facility] [address] [place] [address] [place] [address] Ethanol [Mass/Vol] 41 mg/dL High None Detected [facility] Interpretation and review of laboratory results Abnormal [facility] HEPATIC FUNCTION PANELon Albumin [Mass/Vol] 4.1 g/dL Normal 3.4-5.1 [facility] Comment on above: Performed By: #### C H8, ETOH, HEPATIC #### [facility] [address] [place] [address] [place] [address] ALK 54 IU/L Normal 40-200 [facility] Comment on above: Performed By: #### C H8, ETOH, HEPATIC #### [facility] [address] [place] [address] [place] [address] ALT [Catalytic activity/Vol] 24 U/L Normal 7-40 [facility] Comment on above: Performed By: #### C H8, ETOH, HEPATIC #### [facility] [address] [place] [address] [place] [address] AST [Catalytic activity/Vol] 19 U/L Normal 7-40 [facility] Comment on above: Performed By: #### C H8, ETOH, HEPATIC #### [facility] [address] [place] [address] [place] [address] Bilirubin [Mass/Vol] 0.5 mg/dL Normal 0.1-1.5 [facility] Comment on above: Performed By: #### C H8, ETOH, HEPATIC #### [facility] [address] [place] [address] [place] [address] Bilirubin.direct [Mass/Vol] 0.10 mg/dL Normal 0.10-0.30 [facility] Comment on above: Performed By: #### C H8, ETOH, HEPATIC #### [facility] [address] [place] [address] [place] [address] Protein [Mass/Vol] 6.5 g/dL Normal 6.2-8.3 [facility] Comment on above: Performed By: #### C H8, ETOH, HEPATIC #### [facility] [address] [place] [address] [place] [address] Albumin [Mass/Vol] 4.1 g/dL 3.4 - 5.1 g/dL [facility] ALP [Catalytic activity/Vol] 54 U/L [facility] ALT [Catalytic activity/Vol] 24 U/L [facility] AST [Catalytic activity/Vol] 19 U/L [facility] Bilirubin [Mass/Vol] 0.5 mg/dL 0.1 - 1 .5 mg/dL [facility] Bilirubin.direct [Mass/Vol] 0.10 mg/dL 0.10 - 0.30 mg/dL [facility] Interpretation and review of laboratory results Normal [facility] Protein [Mass/Vol] 6.5 g/dL 6.2 - 8.3 g/dL [facility] HIGH SENSITIVITY TROPONIN Io n 05-30-2023 HS TROPONIN I < 4 Normal <=15 [facility] Comment on above: Order Comment: High Sensitivity Cardiac Troponin I (hsTnI) assay has replaced the conventional troponin assay at [facility]. All results are reported in whole numbers representing ng/L. Repeat test times for ruling out acute coronary syndrome (ACS) are every 2 hours instead of every 6-8 hours. [id number] conventional troponin (I-stat) will remain available in the [facility] ??? results obtained by different labs or methods are not comparable. Elevated troponin can result from acute myocardial infarction (coronary etiology) or myocardial injury (non-coronary etiology) ??? always consider both. For ruling out acute coronary syndrome (ACS), lab values are always used in conjunction with clinical risk assessment (e.g., HEART score). Interpreting initial value in ruling out ACS Less than 5 ng/L ??? below lower limit of quantification ??? essentially rules out ACS if chest pain began more than 3 hours prior to test and assessed risk is low 5 - 49 ng/L ??? indeterminate ??? consider repeat value in 2 hours depending on risk assessment 50 ng/L or greater??? concern for ACS or myocardial injury Interpreting repeated values in ruling out ACS. Always compare to initial value obtained: Increase of less than 5 ng/L ??? essentially rules out ACS if chest pain began more than 3 hours prior to initial test and assessed risk is low Increase of 5 - 19 ng/L ??? indeterminate ??? consider another repeat value in 2 hours depending on risk assessment Increase of 20 ng/L or greater ??? Concern for ACS or myocardial injury Any absolute value of 50 ng/L or greater ??? concern for ACS or myocardial injury Intermediate hsTnI values DO NOT mandate admission to a cardiology or telemetry unit. They need to be interpreted within the clinical context using provider judgement. When using hsTnI to calculate the HEART score, use the 99 % Upper Reference Limit of 15 ng/L as the normal limit (i.e. <=15 ng/L = 0 points, 16-45 ng/L = 1 points, >45 ng/L = 2 points). Performed By: #### H STRP #### [facility] [address] [place] [address] [place] [address] Troponin I.cardiac DL <= 0.01 ng/mL [Mass/Vol] ng/L NINF - 15 ng/L [facility] TOXICOLOGY SCREEN, UNCONFIRM EDOrdered By: Ramya Bragg on 05-30-2023 Amphetamines Ql (U) Negative Negative [facility] [facility] Barbiturates Screen Ql (U) Negative Negative [facility] Benzodiazepines Ql (U) Negative Negative [facility] Benzoylecgonine Screen Ql (U) Negative Negative [facility] Buprenorphine+Norbupr enorphine Screen Ql (U) Negative [facility] Ethanol Screen Ql (U) Positive [facility]normal [facility] fentaNYL Screen Ql (U) Negative Negative ng/mL [facility] HYDROcodone Screen Ql (U) Negative Negative [facility] Interpretation and review of laboratory results Abnormal [facility] Methadone Screen Ql (U) Negative Negative [facility] Opiates Ql (U) Negative Negative [facility] oxyCODONE Ql (U) Negative [facility] Comment on above: Oxycodone and metabo lites of Oxycodone (Oxymorphone, Noroxycodone, and Noroxymorphone) are measured/detected in this assay method. Phencyclidine Ql (U) Negative Negative [facility] Tetrahydrocannabinol Screen Ql (U) Negative Negative [facility] This toxicology scre en provides unconfirmed analytical results suitable for clinical management. Results are reported as positive (at or above the cutoff) or negative (below the cutoff). Amphetamines 1000 ng/mL Barbiturates 200 ng/mL Methadone 300 ng/mL Opiates 300 ng/mL Oxycodone 100 ng/mL Fentanyl 1 ng/mL Hydrocodone 100 ng/mL Benzodiazepines 200 ng/mL Cocaine Metabolite 300 ng/mL PCP 25 ng/mL THC 50 ng/mL Buprenorphine 5 ng/mL Alcohol 10 mg/dL [facility] TOXICOLOGY SCREEN, UNCONFIRM EDon 05-30-2023 AMPH Negative Normal Negative [facility] Comment on above: Order Comment: This toxicology screen provides unconfirmed analytical results suitable for clinical management. Results are reported as positive (at or above the cutoff) or negative (below the cutoff). Amphetamines 1000 ng/mL Barbiturates 200 ng/mL Methadone 300 ng/mL Opiates 300 ng/mL Oxycodone 100 ng/mL Fentanyl 1 ng/mL Hydrocodone 100 ng/mL Benzodiazepines 200 ng/mL Cocaine Metabolite 300 ng/mL PCP 25 ng/mL THC 50 ng/mL Buprenorphine 5 ng/mL Alcohol 10 mg/dL Performed By: #### T OX [place] #### [facility] [address] [facility] [place] [address] BARBIT Negative Normal Negative [facility] Comment on above: Order Comment: This toxicology screen provides unconfirmed analytical results suitable for clinical management. Results are reported as positive (at or above the cutoff) or negative (below the cutoff). Amphetamines 1000 ng/mL Barbiturates 200 ng/mL Methadone 300 ng/mL Opiates 300 ng/mL Oxycodone 100 ng/mL Fentanyl 1 ng/mL Hydrocodone 100 ng/mL Benzodiazepines 200 ng/mL Cocaine Metabolite 300 ng/mL PCP 25 ng/mL THC 50 ng/mL Buprenorphine 5 ng/mL Alcohol 10 mg/dL Performed By: #### T OX [place] #### [facility] [address] [place] [address] [place] [address] BENZO Negative Normal Negative [facility] Comment on above: Order Comment: This toxicology screen provides unconfirmed analytical results suitable for clinical management. Results are reported as positive (at or above the cutoff) or negative (below the cutoff). Amphetamines 1000 ng/mL Barbiturates 200 ng/mL Methadone 300 ng/mL Opiates 300 ng/mL Oxycodone 100 ng/mL Fentanyl 1 ng/mL Hydrocodone 100 ng/mL Benzodiazepines 200 ng/mL Cocaine Metabolite 300 ng/mL PCP 25 ng/mL THC 50 ng/mL Buprenorphine 5 ng/mL Alcohol 10 mg/dL Performed By: #### T OX [place] #### [facility] [address] [place] [address] [place] [address] COCAINE CL Negative Normal Negative [facility] Comment on above: Order Comment: This toxicology screen provides unconfirmed analytical results suitable for clinical management. Results are reported as positive (at or above the cutoff) or negative (below the cutoff). Amphetamines 1000 ng/mL Barbiturates 200 ng/mL Methadone 300 ng/mL Opiates 300 ng/mL Oxycodone 100 ng/mL Fentanyl 1 ng/mL Hydrocodone 100 ng/mL Benzodiazepines 200 ng/mL Cocaine Metabolite 300 ng/mL PCP 25 ng/mL THC 50 ng/mL Buprenorphine 5 ng/mL Alcohol 10 mg/dL Performed By: #### T OX KY #### [facility] [address] [place] [address] [place] [address] Ethanol [Mass/Vol] Positive Abnormal Cutoff: 1 0 mg/dL [facility] Comment on above: Order Comment: This toxicology screen provides unconfirmed analytical results suitable for clinical management. Results are reported as positive (at or above the cutoff) or negative (below the cutoff). Amphetamines 1000 ng/mL Barbiturates 200 ng/mL Methadone 300 ng/mL Opiates 300 ng/mL Oxycodone 100 ng/mL Fentanyl 1 ng/mL Hydrocodone 100 ng/mL Benzodiazepines 200 ng/mL Cocaine Metabolite 300 ng/mL PCP 25 ng/mL THC 50 ng/mL Buprenorphine 5 ng/mL Alcohol 10 mg/dL Performed By: #### T OX [place] #### [facility] [address] [place], [place] [address] [address] FENTANYL Negative Normal Negative [facility] Comment on above: Order Comment: This toxicology screen provides unconfirmed analytical results suitable for clinical management. Results are reported as positive (at or above the cutoff) or negative (below the cutoff). Amphetamines 1000 ng/mL Barbiturates 200 ng/mL Methadone 300 ng/mL Opiates 300 ng/mL Oxycodone 100 ng/mL Fentanyl 1 ng/mL Hydrocodone 100 ng/mL Benzodiazepines 200 ng/mL Cocaine Metabolite 300 ng/mL PCP 25 ng/mL THC 50 ng/mL Buprenorphine 5 ng/mL Alcohol 10 mg/dL Performed By: #### T OX KY #### [facility] [address] [place], [place] [address] [address] HYDROCODONE (PM) Negative Normal Negative [facility] Comment on above: Order Comment: This toxicology screen provides unconfirmed analytical results suitable for clinical management. Results are reported as positive (at or above the cutoff) or negative (below the cutoff). Amphetamines 1000 ng/mL Barbiturates 200 ng/mL Methadone 300 ng/mL Opiates 300 ng/mL Oxycodone 100 ng/mL Fentanyl 1 ng/mL Hydrocodone 100 ng/mL Benzodiazepines 200 ng/mL Cocaine Metabolite 300 ng/mL PCP 25 ng/mL THC 50 ng/mL Buprenorphine 5 ng/mL Alcohol 10 mg/dL Performed By: #### T OX KY #### [facility] [address] [place] [address] [place] [address] Methadone Ql (U) Negative Normal Negative [facility] [facility] Comment on above: Order Comment: This toxicology screen provides unconfirmed analytical results suitable for clinical management. Results are reported as positive (at or above the cutoff) or negative (below the cutoff). Amphetamines 1000 ng/mL Barbiturates 200 ng/mL Methadone 300 ng/mL Opiates 300 ng/mL Oxycodone 100 ng/mL Fentanyl 1 ng/mL Hydrocodone 100 ng/mL Benzodiazepines 200 ng/mL Cocaine Metabolite 300 ng/mL PCP 25 ng/mL THC 50 ng/mL Buprenorphine 5 ng/mL Alcohol 10 mg/dL Performed By: #### T OX KY #### [facility] [address] [place] [address] [place] [address] NORBUPRENORPHINE Negative Normal Cutoff: 5 [facility] Comment on above: Order Comment: This toxicology screen provides unconfirmed analytical results suitable for clinical management. Results are reported as positive (at or above the cutoff) or negative (below the cutoff). Amphetamines 1000 ng/mL Barbiturates 200 ng/mL Methadone 300 ng/mL Opiates 300 ng/mL Oxycodone 100 ng/mL Fentanyl 1 ng/mL Hydrocodone 100 ng/mL Benzodiazepines 200 ng/mL Cocaine Metabolite 300 ng/mL PCP 25 ng/mL THC 50 ng/mL Buprenorphine 5 ng/mL Alcohol 10 mg/dL Performed By: #### T OX KY #### [facility] [address] [place] [address] [place] [address] OPIATE Negative Normal Negative [facility] Comment on above: Order Comment: This toxicology screen provides unconfirmed analytical results suitable for clinical management. Results are reported as positive (at or above the cutoff) or negative (below the cutoff). Amphetamines 1000 ng/mL Barbiturates 200 ng/mL Methadone 300 ng/mL Opiates 300 ng/mL Oxycodone 100 ng/mL Fentanyl 1 ng/mL Hydrocodone 100 ng/mL Benzodiazepines 200 ng/mL Cocaine Metabolite 300 ng/mL PCP 25 ng/mL THC 50 ng/mL Buprenorphine 5 ng/mL Alcohol 10 mg/dL Performed By: #### T OX KY #### [facility] [address] [place] [address] [place] [address] OXYCODONE Negative Normal Cutoff: 100 [facility] Comment on above: Order Comment: This toxicology screen provides unconfirmed analytical results suitable for clinical management. Results are reported as positive (at or above the cutoff) or negative (below the cutoff). Amphetamines 1000 ng/mL Barbiturates 200 ng/mL Methadone 300 ng/mL Opiates 300 ng/mL Oxycodone 100 ng/mL Fentanyl 1 ng/mL Hydrocodone 100 ng/mL Benzodiazepines 200 ng/mL Cocaine Metabolite 300 ng/mL PCP 25 ng/mL THC 50 ng/mL Buprenorphine 5 ng/mL Alcohol 10 mg/dL Result Comment: Oxyc odone and metabolites of Oxycodone (Oxymorphone, Noroxycodone, and Noroxymorphone) are measured/detected in this assay method. Performed By: #### T OX [place] #### [facility] [address] [place] [address] [place] [address] PHENCYCL Negative Normal Negative The [facility] Comment on above: Order Comment: This toxicology screen provides unconfirmed analytical results suitable for clinical management. Results are reported as positive (at or above the cutoff) or negative (below the cutoff). Amphetamines 1000 ng/mL Barbiturates 200 ng/mL Methadone 300 ng/mL Opiates 300 ng/mL Oxycodone 100 ng/mL Fentanyl 1 ng/mL Hydrocodone 100 ng/mL Benzodiazepines 200 ng/mL Cocaine Metabolite 300 ng/mL PCP 25 ng/mL THC 50 ng/mL Buprenorphine 5 ng/mL Alcohol 10 mg/dL Performed By: #### T OX [place] #### [facility] [address] [place] [address] [place] [address] THC CL Negative Normal Negative [facility] Comment on above: Order Comment: This toxicology screen provides unconfirmed analytical results suitable for clinical management. Results are reported as positive (at or above the cutoff) or negative (below the cutoff). Amphetamines 1000 ng/mL Barbiturates 200 ng/mL Methadone 300 ng/mL Opiates 300 ng/mL Oxycodone 100 ng/mL Fentanyl 1 ng/mL Hydrocodone 100 ng/mL Benzodiazepines 200 ng/mL Cocaine Metabolite 300 ng/mL PCP 25 ng/mL THC 50 ng/mL Buprenorphine 5 ng/mL Alcohol 10 mg/dL Performed By: #### T OX KY #### [facility] [address] [place] [address] [place] [address] Troponin I.cardiac DL <= 0.0 1 ng/mL [Mass/Vol]on 05-30-2023 Interpretation and review of laboratory results Normal [facility] High Sensitivity Car diac Troponin I (hsTnI) assay has replaced the conventional troponin assay at [facility]. All results are reported in whole numbers representing ng/L. Repeat test times for ruling out acute coronary syndrome (ACS) are every 2 hours instead of every 6-8 hours. [id number] conventional troponin (I-stat) will remain available in the [facility] ED results obtained by different labs or methods are not comparable. Elevated troponin can result from acute myocardial infarction (coronary etiology) or myocardial injury (non-coronary etiology) always consider both. For ruling out acute coronary syndrome (ACS), lab values are always used in conjunction with clinical risk assessment (e.g., HEART score). Interpreting initial value in ruling out ACS Less than 5 ng/L below lower limit of quantification essentially rules out ACS if chest pain began more than 3 hours prior to test and assessed risk is low 5 - 49 ng/L indeterminate consider repeat value in 2 hours depending on risk assessment 50 ng/L or greater concern for ACS or myocardial injury Interpreting repeated values in ruling out ACS. Always compare to initial value obtained: Increase of less than 5 ng/L essentially rules out ACS if chest pain began more than 3 hours prior to initial test and assessed risk is low Increase of 5 - 19 ng/L indeterminate consider another repeat value in 2 hours depending on risk assessment Increase of 20 ng/L or greater Concern for ACS or myocardial injury Any absolute value of 50 ng/L or greater concern for ACS or myocardial injury Intermediate hsTnI values DO NOT mandate admission to a cardiology or telemetry unit. They need to be interpreted within the clinical context using provider judgement. When using hsTnI to calculate the HEART score, use the 99 % Upper Reference Limit of 15 ng/L as the normal limit (i.e. <=15 ng/L = 0 points, 16-45 ng/L = 1 points, >45 ng/L = 2 points). [facility] URINALYSISon 05-30-2023 Appearance (U) Clear Clear [facility] Bilirubin Ql (U) Negative Negative [facility] Color (U) Yellow Yellow [facility] Glucose Auto test strip (U) [Mass/Vol] Negative Negative mg/dL [facility] Hemoglobin Ql (U) Negative Negative [facility] Ketones Ql (U) Negative Negative mg/dL [facility] Leukocyte esterase Test strip Ql (U) Negative Negative [facility] Nitrite Ql (U) Negative Negative [facility] pH (U) 7.0 [pH] 5.0 - 8.0 [facility] Protein (U) [Mass/Vol] Negative Negative mg/dL [facility] Specific gravity (U) [Rel density] 1.015 1.005 - 1.030 [facility] Urobilinogen Qn (U) 0.2 mg/dL 0.2 - 1. 0 mg/dL [facility] Glucose Ql (U) Negative Normal Negative [facility] Comment on above: Performed By: #### u rinalysis #### [facility] [address] [place] [address] [place] [address] U APPEAR Clear Normal Clear [facility] Comment on above: Performed By: #### u rinalysis #### [facility] [address] [place] [address] [place] [address] U BILI Negative Normal Negative [facility] Comment on above: Performed By: #### u rinalysis #### [facility] [address] [place] [address] [place] [address] U BLOOD Negative Normal Negative [facility] Comment on above: Performed By: #### u rinalysis #### [facility] [address] [place] [address] [place] [address] U COLOR Yellow Normal Yellow [facility] Comment on above: Performed By: #### u rinalysis #### [facility] [address] [place] [address] [place] [address] U KETONE Negative Normal Negative [facility] Comment on above: Performed By: #### u rinalysis #### [facility] [address] [place] [address] [place] [address] U LEUK Negative Normal Negative [facility] Comment on above: Performed By: #### u rinalysis #### [facility] [address] [place] [address] [place] [address] U NITRITE Negative Normal Negative [facility] Comment on above: Performed By: #### u rinalysis #### [facility] [address] [place] [address] [place] [address] U PH 7.0 Normal 5.0-8.0 [facility] Comment on above: Performed By: #### u rinalysis #### [facility] [address] [place] [address] [place] [address] U PROTEIN Negative Normal Negative [facility] Comment on above: Performed By: #### u rinalysis #### [facility] [address] [place] [address] [place] [address] U SG 1.015 Normal 1.005-1.030 [facility] Comment on above: Performed By: #### u rinalysis #### [facility] [address] [place] [address] [place] [address] U UROBILI 0.2 mg/dL Normal 0.2 - 1.0 [facility] Comment on above: Performed By: #### u rinalysis #### [facility] [address] [place] [address] [place] [address] Basic metabolic 2000 panelon 05-29-2023 Anion gap [Moles/Vol] 12 mmol/L Normal 9-18 [facility] Comment on above: Order Comment: Speci men Type: BLOOD SPECIMEN Ordering Facility: [facility] Address: [address] [address] Performed By: #### 2 432-2, #### [facility] CLIA [id number] [address] [place] [address] [place] Calcium [Mass/Vol] 9.6 mg/dL Normal 8.5-10.2 [facility] Comment on above: Order Comment: Speci men Type: BLOOD SPECIMEN Ordering Facility: [facility] Address: [address] [id number] Performed By: #### 2 432-2, #### [facility] CLIA [id number] [address] [place] [address] [place] Chloride [Moles/Vol] 101 mmol/L Normal 97-105 [facility] Comment on above: Order Comment: Speci men Type: BLOOD SPECIMEN Ordering [facility] Address: [address] [place] [address] Performed By: #### 2 4321-2, #### [facility] CLIA [id number] [address] [place] [address] [place] CO2 [Moles/Vol] 25 mmol/L Normal 22-30 [facility] Comment on above: Order Comment: Speci men Type: BLOOD SPECIMEN Ordering Facility: [facility] Address: [address] [place] [address] Performed By: #### 2 432-2, #### [facility] CLIA [id number] [address] [place] [address] [place] Creatinine [Mass/Vol] 0.98 mg/dL Normal 0.73-1.22 [facility] Comment on above: Order Comment: Speci men Type: BLOOD SPECIMEN Ordering Facility: [facility] Address: [address] [place] [address] Performed By: #### 2 43209-24, #### [facility] CLIA [id number] [address] [place] [address] [place] Creatinine and Glomerular filtration rate.predicted panel (S/P/Bld) 93 mL/min/1.73m??? Normal >=60 [facility] Comment on above: Order Comment: Speci men Type: BLOOD SPECIMEN Ordering Facility[facility] Address: [address] [place] [address] Result Comment: Nikole mated Glomerular Filtration Rate (eGFR) is calculated using the 2020 CKD-EPI creatinine equation. This equation utilizes serum creatinine, sex, and age as parameters. The creatinine assay has traceable calibration to isotope dilution-mass spectrometry. Refer to KDIGO guidelines for clinical interpretation. In patients with unstable renal function, e.g. those with acute kidney injury, the eGFR may not accurately reflect actual GFR. Performed By: #### 2 4321-2, #### [facility] CLIA [id number] [address] [id number] [place] Glucose [Mass/Vol] 97 mg/dL Normal 74-99 [facility] Comment on above: Order Comment: Speci men Type: BLOOD SPECIMEN Ordering [facility] Address: [address] [place], [place] [id number] Result Comment: The [place] Diabetes Association (ADA) provides guidance for cutoff values for fasting glucose and random glucose. The ADA defines fasting as no caloric intake for at least 8 hours. Fasting plasma glucose results between 100 to 125 mg/dL indicate increased risk for diabetes (prediabetes). Fasting plasma glucose results greater than or equal to 126 mg/dL meet the criteria for diagnosis of diabetes. In the absence of unequivocal hyperglycemia, results should be confirmed by repeat testing. In a patient with classic symptoms of hyperglycemia or hyperglycemic crisis, random plasma glucose results greater than or equal to 200 mg/dL meet the criteria for diagnosis of diabetes. Reference: Standards of Medical Care in Diabetes 2016, [place] Diabetes Association. Diabetes Care. 2016.39(Suppl 1). Performed By: #### 2 #### [facility] CLIA [id number] [address] [place] [address] [place] Potassium [Moles/Vol] 4.2 mmol/L Normal 3.7-5.1 [facility] Comment on above: Order Comment: Brentoni men Type: BLOOD SPECIMEN Order[facility] Facility[facility] Address: [place] [address] Performed By: #### 2 #### [facility] CLIA [id number] [address] [place] [address] [place] Sodium [Moles/Vol] 138 mmol/L Normal 136-144 [facility] Comment on above: Order Comment: Speci men Type: BLOOD SPECIMEN Ordering Facility[facility] Address: [address] [id number] Performed By: #### 2 [address]-24, #### [facility] CLIA [id number] [address] [id number] [place] Urea nitrogen [Mass/Vol] 12 mg/dL Normal 9-24 [facility] Comment on above: Order Comment: Speci men Type: BLOOD SPECIMEN Ordering [facility] Address: [address] [place] [address] Performed By: #### 2 4321-2, 88413-4 #### [facility] CLIA [id number] [address] [place] [address] [place] CBC W Auto Differential pane l (Bld)on 05-29-2023 Basophils (Bld) [#/Vol] 10*3/uL Normal <0.11 [facility] Comment on above: Order Comment: Speci men Type: BLOOD SPECIMEN Order[facility] Address: [address] [place] [address] Performed By: #### 5 7021-8 #### [facility] CLIA [id number] [address] [place] [address] [place] Basophils/100 WBC (Bld) 0.6 % Normal [facility] Comment on above: Order Comment: Speci men Type: BLOOD SPECIMEN Order[facility] Address: [address] [place] [address] Performed By: #### 5 7021-8 #### [facility] CLIA [id number] [address] [place] [address] [place] Differential cell count method Nom (Bld) Auto Normal [facility] Comment on above: Order Comment: Speci men Type: BLOOD SPECIMEN Order[facility] Address: [address] [place], [place] [address] Performed By: #### 5 7021-8 #### [facility] CLIA [id number] [address] [place] [address] [place] Eosinophils (Bld) [#/Vol] 0.05 10*3/uL Normal <0.46 [facility] Comment on above: Order Comment: Speci men Type: BLOOD SPECIMEN Ordering [facility] Address: [address] Performed By: #### 5 7021-8 #### [facility] CLIA [id number] [address] [place] [address] [place] Eosinophils/100 WBC (Bld) 1.4 % Normal [facility] Comment on above: Order Comment: Speci men Type: BLOOD SPECIMEN Ordering [facility]: [facility] Address: [address] Performed By: #### 5 7021-8 #### [facility] CLIA [id number] [address] [place] [address] [place] Erythrocyte distribution width (RBC) [Ratio] 12.6 % Normal 11.5-15.0 [facility] Comment on above: Order Comment: Speci men Type: BLOOD SPECIMEN Ordering Facility: [facility] Address: [address] Performed By: #### 5 7021-8 #### [facility] CLIA [id number] [address] [place] [address] [place] Hematocrit (Bld) [Volume fraction] 41.9 % Normal 39.0-51.0 [facility] Comment on above: Order Comment: Speci men Type: BLOOD SPECIMEN Ordering Facility: [facility] Address: [address] Performed By: #### 5 7021-8 #### [facility] CLIA [id number] [address] [place] [address] [place] Hemoglobin (Bld) [Mass/Vol] 14.2 g/dL Normal 13.0-17.0 [facility] Comment on above: Order Comment: Speci men Type: BLOOD SPECIMEN Ordering [facility] Address: [address] Performed By: #### 5 7021-8 #### [facility] CLIA [id number] [address] [place] [address] [place] Immature granulocytes (Bld) [#/Vol] 10*3/uL Normal <0.10 [facility] Comment on above: Order Comment: Speci men Type: BLOOD SPECIMEN Ordering Facility: [facility] Address: [address] [place] [address] Performed By: #### 5 7021-8 #### [facility] CLIA [id number] [address] [place] [address] [place] Immature granulocytes/100 WBC (Bld) 0.3 % Normal [facility] Comment on above: Order Comment: Speci men Type: BLOOD SPECIMEN Ordering Facility: [facility] Address: [address] [place] [address] Performed By: #### 5 7021-8 #### [facility] CLIA [id number] [address] [place] [address] [place] Lymphocytes (Bld) [#/Vol] 0.92 10*3/uL Low 1.00-4.00 [facility] Comment on above: Order Comment: Speci men Type: BLOOD SPECIMEN Ordering Facility: [facility] Address: [address] [place], [place] [address] Performed By: #### 5 7021-8 #### [facility] CLIA [id number] [address] [place] [address] [place] Lymphocytes/100 WBC (Bld) 25.4 % Normal [facility] Comment on above: Order Comment: Speci men Type: BLOOD SPECIMEN Ordering Facility: [facility] Address: [address] [place], [place] [address] Performed By: #### 5 7021-8 #### [facility] CLIA [id number] [address] [place] [address] [place] MCH (RBC) [Entitic mass] 29.2 pg Normal 26.0-34.0 [facility] Comment on above: Order Comment: Speci men Type: BLOOD SPECIMEN Ordering Facility: [facility] Address: [address] Performed By: #### 5 7021-8 #### [facility] CLIA [id number] [address] [place] [address] [place] MCHC (RBC) [Mass/Vol] 33.9 g/dL Normal 30.5-36.0 [facility] Comment on above: Order Comment: Speci men Type: BLOOD SPECIMEN Ordering Facility: [facility] Address: [address] Performed By: #### 5 7021-8 #### [facility] CLIA [id number] [address] [place] [address] [place] MCV (RBC) [Entitic vol] 86.0 fL Normal 80.0-100.0 [facility] Comment on above: Order Comment: Speci men Type: BLOOD SPECIMEN Ordering Facility: [facility] Address: [address] Performed By: #### 5 7021-8 #### [facility] CLIA [id number] [address] [place] [address] [place] Monocytes (Bld) [#/Vol] 0.29 10*3/uL Normal <0.87 [facility] Comment on above: Order Comment: Speci men Type: BLOOD SPECIMEN Ordering Facility: [facility] Address: [address] Performed By: #### 5 7021-8 #### [facility] CLIA [id number] [address] [place] [address] [place] Monocytes/100 WBC (Bld) 8.0 % Normal [facility] Comment on above: Order Comment: Speci men Type: BLOOD SPECIMEN Ordering Facility: [facility] Address: [address] Performed By: #### 5 7021-8 #### [facility] CLIA [id number] [address] [place] [address] [place] Neutrophils (Bld) [#/Vol] 2.33 10*3/uL Normal 1.45-7.50 [facility] Comment on above: Order Comment: Speci men Type: BLOOD SPECIMEN Ordering Facility: [facility] Address: [address] [place], [place] [address] Performed By: #### 5 7021-8 #### [facility] CLIA [id number] [address] [place] [address] [place] Neutrophils/100 WBC (Bld) 64.3 % Normal [facility] Comment on above: Order Comment: Speci men Type: BLOOD SPECIMEN Ordering Facility: [facility] Address: [address] [place], [place] [address] Performed By: #### 5 7021-8 #### [facility] CLIA [id number] [address] [place] [address] [place] Nucleated RBC (Bld) [#/Vol] 10*3/uL Normal <0.01 [facility] Comment on above: Order Comment: Speci men Type: BLOOD SPECIMEN Ordering Facility: [facility] Address: [address] [place], [place] [address] Performed By: #### 5 7021-8 #### [facility] CLIA [id number] [address] [place] [address] [place] Nucleated RBC/100 WBC (Bld) [Ratio] 0.0 /100 WBC Normal [facility] Comment on above: Order Comment: Speci men Type: BLOOD SPECIMEN Ordering Facility: [facility] Address: [address] [place], [place] [address] Performed By: #### 5 7021-8 #### [facility] CLIA [id number] [address] [place] [address] [place] Platelet mean volume (Bld) [Entitic vol] 11.0 fL Normal 9.0-12.7 [facility] Comment on above: Order Comment: Speci men Type: BLOOD SPECIMEN Ordering Facility: [facility] Address: [address] [place] [address] Performed By: #### 5 7021-8 #### [facility] CLIA [id number] [address] [place] [address] [place] Platelets (Bld) [#/Vol] 149 10*3/uL Low 150-400 [facility] Comment on above: Order Comment: Speci men Type: BLOOD SPECIMEN Ordering Facility: [facility] Address: [address] [place], [place] [address] Performed By: #### 5 7021-8 #### [facility] CLIA [id number] [facility] [place] [address] [place] RBC (Bld) [#/Vol] 4.87 10*6/uL Normal 4.20-6.00 [facility] Comment on above: Order Comment: Speci men Type: BLOOD SPECIMEN Ordering Facility: [facility] Address: [address] [place], [place] [address] Performed By: #### 5 7021-8 #### [facility] CLIA [id number] [address] [place] [address] [place] WBC (Bld) [#/Vol] 3.62 10*3/uL Low 3.70-11.00 [facility] Comment on above: Order Comment: Speci men Type: BLOOD SPECIMEN Ordering Facility: [facility] Address: [address] [place], [place] [address] Performed By: #### 5 7021-8 #### [facility] CLIA [id number] [address] [place] [address] [place] ENU08va 05-29-2023 ECG01 Ventricular Rate : 7 1 BPM Atrial Rate : 71 BPM P-R Interval : 172 ms QRS Duration : 98 ms Q-T Interval : 366 ms QTC Calculation(Bazett) : 397 ms Calculated P [place] : 33 degrees Calculated R [place] : -21 degrees Calculated T [place] : 14 degrees NORMAL SINUS RHYTHM NORMAL ECG Confirmed by MD MAO JOSHUA ([id number]), book editor TJ BOWERS ([id number]) on 05/29/2023 5:04:09 PM NAME : HOSEA ALVAREZ PID : [id number] : 1970 Gender : Male Race : ORD : Procedure Date : May 29 2023 12:05:13 Edit Date : May 29 2023 17:04:13 Diagnosis: NORMAL SINUS RHYTHM NORMAL ECG Confirmed by MD MAO JOSHUA ([id number]), book editor TJ BOWERS ([id number]) on 05/29/2023 5:04:09 PM Test Reason : Location : 2 : ED 003 Overread By : MD MAO JOSHUA Edited By : TJ BOWERS Referred By : , Acquired by : , [facility] ED NOTEon 05-29-2023 ED NOTE HNO ID: [id number] Author: Kely Cadet RN Service: Emergency Medicine Author Type: Registered Nurse Type: ED Notes Filed: 05/29/2023 3:35 PM Note Text: Discharge paperwork handed to pt, follow-up instructions reviewed with pt and pt verbalized understanding. Pt discharged in stable condition. [facility] ED NOTE HNO ID: [id number] Author: Soheila Alvarez RN Service: ? Author Type: Registered Nurse Type: ED Notes Filed: 05/29/2023 11:55 AM Note Text: Bed: E18-03 Expected date: Expected time: Means of arrival: Comments: EMS [facility] ED NOTE HNO ID: [id number] Author: Jose Elias Bliss RN Service: ? Author Type: Registered Nurse Type: ED Notes Filed: 05/29/2023 1:41 AM Note Text: Pt presents per squad with c/o hx of palpitations and dark tarry stool. Pt states he attempted to go [employer] but was kicked out by security. Pt also state he attempted to get [facility] to bring him in, brought in by [facility] ED NOTE HNO ID: [id number] Author: Kika Yao RN Service: ? Author Type: Registered Nurse Type: ED Notes Filed: 05/29/2023 1:37 AM Note Text: Bed: ED-10 Expected date: Expected time: Means of arrival: [facility] Comments: jordan [facility] ED NOTE HNO ID: [id number] Author: Monalisa Haq RN Service: ? Author Type: Registered Nurse Type: ED Notes Filed: 05/29/2023 12:27 AM Note Text: Pt refusing treatment. Exam by Paola PANTOJA. Pt is competent at this time and wishes to leave. Request granted [facility] ED NOTE HNO ID: [id number] Author: Monalisa Haq RN Service: ? Author Type: Registered Nurse Type: ED Notes Filed: 05/29/2023 12:26 AM Note Text: Pt refuses to put wristband on, sts he has an anxiety disorder. Paola PANTOJA called to bedside to assess pt [facility] ED PROV NOTEon 05-29-2023 ED PROV NOTE HNO ID: [id number] Author: Carlos Mao MD Service: Anesthesiology Author Type: Physician Type: ED Provider Notes Filed: 05/30/2023 8:18 PM Note Text: ED Provider Note Patient Name: Hosea Alvarez : 1970 SERVICE DATE: 05/29/23 History Patient presents with: Dizziness HPI Patient is a 52 yo male with history of anxiety, HTN, renal artery stenosis, thoracic aortic aneurysm, anxiety and homelessness who presents with dizziness. Patient reports that he was sitting in the bus when he felt dizzy and started having justa vu experiences. Also has a intermittent cough. No loss consciousness, falls, facial drooping, or unilateral muscle weakness at the time. Patient also denies any cardiac, pulmonary, GI, and symptoms. However, he is fixated on the idea that he might have had a TIA. He endorses alcohol use on [place], unable to specify how much. Of note, he was brought to [facility] this morning due to behavioral issues/agitation and left AMA. He later presented to [facility] ED with complaint of dark stool, had negative fecal occult, and was discharged to follow-up with PCP. PAST MEDICAL HISTORY Diagnosis Date - Hemorrhoids - Hypertension - Hypoglycemia - Renal disorder renal stenosis No past surgical history on file. No family history on file. Social History Tobacco Use - Smoking status: Former Types: Cigarettes - Smokeless tobacco: Never Vaping Use - Vaping Use: Never used Substance and Sexual Activity - Alcohol use: Yes Alcohol/week: 7.0 standard drinks of alcohol Types: 7 Cans of beer per week Comment: pt sts a beer a day. daily - Drug use: No - Sexual activity: Not on file ALLERGIES Allergen Reactions - Caffeine Rash Other reaction(s): Shakiness - [place] GI Upset, Rash, Vomiting Statused by Person: Imelda Meza.( [employer]er2) on Statused by Person: SRAVANTHI MONGE([facility]) on Statused by Person: Imelda Meza.(T [employer]er2) on Statused by Person: SRAVANTHI MONGE([facility]) on - Amlodipine Swelling - Amoxicillin GI Upset - Chocolate Flavor GI Upset - Ciprofloxacin Other: See Comments - Diazepam Unknown - Fentanyl Mental Status Change - Lorazepam GI Upset Other reaction(s): Abdominal Pain - Seasonal Allergies GI Upset Abdominal pain Abdominal pain - Serotonin Hcl Mental Status Change 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 HENT: Negative for congestion, sore throat and tinnitus. Eyes: Negative for photophobia and visual disturbance. Respiratory: Positive for cough. Negative for choking, chest tightness, shortness of breath, wheezing and stridor. Cardiovascular: Negative for chest pain, palpitations and leg swelling. Gastrointestinal: Negative for abdominal distention, abdominal pain, constipation and diarrhea. Endocrine: Negative for polydipsia. Genitourinary: Negative for dysuria, flank pain and hematuria. Musculoskeletal: Positive for back pain. Skin: Negative for color change. Neurological: Positive for dizziness and light-headedness. Negative for weakness. Psychiatric/Behavioral: Negative for agitation and suicidal ideas. Physical Exam Vitals [05/29/23 1200] BP Pulse Temp Temp src Resp SpO2 Weight Height 152/92 75 36.7 ?C (98.1 ?F) Oral 18 98 % -- -- Physical Exam Vitals reviewed. Constitutional: General: He is not in acute distress. Appearance: Normal appearance. He is normal weight. He is not ill-appearing, toxic-appearing or diaphoretic. HENT: Head: Normocephalic and atraumatic. Mouth/Throat: Mouth: Mucous membranes are moist. Pharynx: Oropharynx is clear. Eyes: Extraocular Movements: Extraocular movements intact. Pupils: Pupils are equal, round, and reactive to light. Cardiovascular: Rate and Rhythm: Normal rate and regular rhythm. Pulses: Normal pulses. Heart sounds: Normal heart sounds. No murmur heard. No gallop. Pulmonary: Effort: Pulmonary effort is normal. No respiratory distress. Breath sounds: Normal breath sounds. No wheezing or rales. Abdominal: General: Abdomen is flat. Bowel sounds are normal. There is no distension. Palpations: Abdomen is soft. Tenderness: There is no abdominal tenderness. Musculoskeletal: General: Normal range of motion. Cervical back: Normal range of motion. Skin: General: Skin is warm and dry. Capillary Refill: Capillary refill takes less than 2 seconds. Neurological: Mental Status: He is alert and oriented to person, place, and time. Psychiatric: Mood and Affect: Mood normal. Behavior: Behavior normal. Thought Co (more content not included)... Normal [facility] ED PROV NOTE HNO ID: [id number] Author: Lily Gregorio PA-C Service: Emergency Medicine Author Type: Physician Director [facility] Type: ED Provider Notes Filed: 05/29/2023 2:21 AM Note Text: ED Provider Note Patient Name: Hosea Alvarez : 1970 SERVICE DATE: 05/29/23 History Patient presents with: Rectal Bleeding 52 y/o male here for multiple complaints. Patient requests he would like this provider [facility] has [facility] bleeding. He states he has dark stools. He reports a h/o diverticulitis. He states he needs to know what is going on so he can let his doctor in [place] know what is to do. Patient had someone call EMS for himself. He arrives ambulatory. PAST MEDICAL HISTORY Diagnosis Date Hemorrhoids Hypertension Hypoglycemia Renal disorder renal stenosis History reviewed. No pertinent surgical history. History reviewed. No pertinent family history. Social History Tobacco Use Smoking status: Former Types: Cigarettes Smokeless tobacco: Never Vaping Use Vaping Use: Never used Substance and Sexual Activity Alcohol use: Yes Alcohol/week: 7.0 standard drinks of alcohol Types: 7 Cans of beer per week Comment: pt sts a beer a day. daily Drug use: No Sexual activity: Not on file ALLERGIES Allergen Reactions Caffeine Rash Other reaction(s): Shakiness [place] GI Upset, Rash, Vomiting Statused by Person: Imelda Meza.(T Britta2) on Statused by Person: SRAVANTHI MONGE([facility]) on Statused by Person: Imelda Meza.( Britta2) on Statused by Person: SRAVANTHI MONGE([facility]) on Amlodipine Swelling Amoxicillin GI Upset Chocolate Flavor GI Upset Ciprofloxacin Other: See Comments Diazepam Unknown Fentanyl Mental Status Change Lorazepam GI Upset Other reaction(s): Abdominal Pain Seasonal Allergies GI Upset Abdominal pain Abdominal pain Serotonin Hcl Mental Status Change 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 Gastrointestinal: Negative for abdominal pain, diarrhea and vomiting. 'dark stool' Hematological: Does not bruise/bleed easily. Physical Exam Vitals [05/29/23 0145] BP Pulse Temp Temp src Resp SpO2 Weight Height 132/100 75 36.7 ?C (98.1 ?F) Oral 16 98 % 95.2 kg (209 lb 14.4 oz) -- Physical Exam Exam conducted with a book jacket cover machine operator present. Constitutional: General: He is not in acute distress. Appearance: He is well-developed. He is not diaphoretic. HENT: Head: Normocephalic and atraumatic. Mouth/Throat: Pharynx: Oropharynx is clear. Eyes: Conjunctiva/sclera: Conjunctivae normal. Cardiovascular: Rate and Rhythm: Normal rate and regular rhythm. Pulses: Normal pulses. Pulmonary: Effort: Pulmonary effort is normal. No respiratory distress. Genitourinary: Rectum: Guaiac result negative. Musculoskeletal: General: No swelling or deformity. Cervical back: Neck supple. Skin: General: Skin is warm and dry. Capillary Refill: Capillary refill takes less than 2 seconds. Coloration: Skin is not pale. Findings: No erythema or rash. Neurological: Mental Status: He is alert and oriented to person, place, and time. Motor: Motor function is intact. Coordination: Coordination is intact. Coordination normal. Gait: Gait is intact. Gait normal. Psychiatric: Speech: Speech is tangential. Behavior: Behavior is cooperative. Diagnostic Testing ED Labs Ordered and Reviewed - No data to display Procedures ED Course / Clinical Impression Clinical Impressions as of 05/29/23 0219 Dark stools History of diverticulosis Homeless Malingering MDM / Disposition / Plan MDM Triage notes,nursing notes, medical history, vitals signs, medication list reviewed. Staff consult: 52 year old male. HPI as noted above. Exam as noted. Care plan reviewed. Multiple ED visits, multiple somatic complaints. No acute problem. Fecal occult (-). Instructed to f/u with PCM. Had recent labs and abdominal imaging. No indication for additional testing. Discharged. SIGNATURE: LYNNETTE Brooke MICHAEL P 05/29/23 0221 Normal [facility] ED PROV NOTE HNO ID: [id number] Author: Paola Arzola PA-C Service: Emergency Medicine Author Type: Physician Director [facility] Type: ED Provider Notes Filed: 05/29/2023 12:35 AM Note Text: ED Provider Note Patient Name: Hosea Alvarez : 1970 SERVICE DATE: 05/29/23 History Patient presents with: Behavioral Problem: Call was for unruly male at the gas station. When the PD arrived with the squad, the pt began yelling that the police couldn't touch him as long as he was with the squad. Pt arrives to the ED verbally belligerent, but directable with staff. Pt was at earlier for BP concerns and then nat was ringing the doorbell like crazy . Brought for eval 52 y/o male presents to the ED via EMS for behavior problem. He is angry and agitated with me. He is redirectable. When I go to assess him he states he wants to leave. He is alert and oriented, walks with steady gait. Per EMS patient has been to station multiple times and had been ringing the doorbell an excessive amount of times. History provided by: Patient, medical records and EMS personnel rigger used: No PAST MEDICAL HISTORY Diagnosis Date Hemorrhoids Hypertension Hypoglycemia Renal disorder renal stenosis No past surgical history on file. No family history on file. Social History Tobacco Use Smoking status: Former Types: Cigarettes Smokeless tobacco: Never Vaping Use Vaping Use: Never used Substance and Sexual Activity Alcohol use: Yes Alcohol/week: 7.0 standard drinks of alcohol Types: 7 Cans of beer per week Comment: pt sts a beer a day. daily Drug use: No Sexual activity: Not on file ALLERGIES Allergen Reactions Caffeine Rash Other reaction(s): Shakiness [place] GI Upset, Rash, Vomiting Statused by Person: Imelda Meza.([employer] Meza2) on Statused by Person: SRAVANTHI MONGE([facility]) on Statused by Person: Imelda Meza.(Altaf Callejaser2) on Statused by Person: SRAVANTHI MONGE([facility]) on Amlodipine Swelling Amoxicillin GI Upset Chocolate Flavor GI Upset Ciprofloxacin Other: See Comments Diazepam Unknown Fentanyl Mental Status Change Lorazepam GI Upset Other reaction(s): Abdominal Pain Seasonal Allergies GI Upset Abdominal pain Abdominal pain Serotonin Hcl Mental Status Change 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 Constitutional: Appearance: Normal appearance. HENT: Head: Normocephalic. Nose: Nose normal. Mouth/Throat: Pharynx: Oropharynx is clear. Eyes: Conjunctiva/sclera: Conjunctivae normal. Cardiovascular: Rate and Rhythm: Normal rate. Pulmonary: Effort: Pulmonary effort is normal. Musculoskeletal: Cervical back: Normal range of motion and neck supple. Skin: General: Skin is warm. Capillary Refill: Capillary refill takes less than 2 seconds. Neurological: General: No focal deficit present. Mental Status: He is alert and oriented to person, place, and time. Mental status is at baseline. Gait: Gait normal. Psychiatric: Mood and Affect: Affect is angry. Behavior: Behavior is agitated. Judgment: Judgment is impulsive. Diagnostic Testing ED Labs Ordered and Reviewed - No data to display Procedures ED Course / Clinical Impression Clinical Impressions as of 05/29/23 0035 Behavior problem, adult Anxiety Agitation MDM / Disposition / Plan 52 y/o male presents to the ED via EMS for evaluation. Upon ED arrival he wants to leave. He is alert and oriented. No SI/HI. No signs of trauma. He left AMA. Differential Diagnoses - agitation - SI/HI - intoxication Disposition The patient was AMA. SIGNATURE: LYNNETTE Chun CARMELA A 05/29/2334 [facility] Magn[facility] [Mass/Vol] 2.1 mg/dL Normal 1.7-2.3 [facility] Comment on above: Order Comment: Speci men Type: BLOOD SPECIMEN Ordering Facility: [facility] Address: [address] [place], [place] [address] Performed By: #### 2 4321-2, 78686-3 #### [facility] CLIA [id number] [address] [facility] [place] [address] [place] ALLIED HEALTHon 05-20-2023 ALLIED HEALTH HNO ID: [id number] Author: Latha Banks Chaplain Service: Spiritual Care Author Type: Technical Business Analyst Type: Allied Health Filed: 05/20/2023 4:23 PM Note Text: SPIRITUAL CARE PROGRESS NOTE SERVICE DATE: 05/20/2023 SERVICE TIME: 4:00pm After discharge pt visited spiritual care office. Pt states he is Baptism and prefers to keep Kosher, was asking for code to [facility] rooms at other hospitals. expressed confusion as these resources are for patients, pt stated he was seeking a kosher-friendly food pantry. attempted to call [facility] to ask whether they have food pantry, provided website information for pt so he could seek additional information. Pt expressed annoyance that his request was not clearly understood. expressed reassurance and empathy. To contact the Spiritual Care Department: Please call [phone]. SIGNATURE: Chaplain Mame PATIENT NAME: Hosea Alvarez DATE: May 20, 2023 TIME: 4:21 PM PAGER/CONTACT #: [phone] [facility] HNO ID: [id number] Author: Anni Quintero, (R) Service: ? Author Type: Leather Belt Maker Type: [facility] Filed: 05/20/2023 12:08 PM Note Text: Radiology Service Progress Note PATIENT NAME: Hosea Alvarez DATE OF SERVICE: May 20, 2023 TIME: 11:36 AM PATIENT IDENTITY VERIFICATION COMPLETED USING TWO (2) IDENTIFIERS: Name and Date of confirmed by patient verbally. FALL SCREENING: Has the patient had 2 falls in the last year or 1 fall with injury or currently using an Ambulatory Assistive Device (Walker, Cane, Wheelchair, Crutches, etc.)? Emergency Room Patient: Screened in ED PATIENT GENDER DATA: Male PATIENT RELEVANT IMPLANT DATA REVIEWED: Not Applicable RADIOLOGY DEPARTMENT: CT dissection protocol PERIPHERAL IV DATA: Inpatient: see LDA documentation SIGNED BY: RT Trevon(R) May 20, 2023 11:36 AM [facility] HNO ID: [id number] Author: Nicole Brennan RT(R) Service: Radiology Author Type: Technologist Type: Allied Health Filed: 05/20/2023 9:16 AM Note Text: Radiology Service Progress Note PATIENT NAME: Hosea Alvarez DATE OF SERVICE: May 20, 2023 TIME: 9:15 AM PATIENT IDENTITY VERIFICATION COMPLETED USING TWO (2) IDENTIFIERS: Name and Date of confirmed by patient verbally. FALL SCREENING: Has the patient had 2 falls in the last year or 1 fall with injury or currently using an Ambulatory Assistive Device (Walker, Cane, Wheelchair, Crutches, etc.)? Inpatient: Screened on floor PATIENT GENDER DATA: Male PATIENT RELEVANT IMPLANT DATA REVIEWED: Not Applicable RADIOLOGY DEPARTMENT: General X-ray: Exam(s) Completed: Chest X-Ray PERIPHERAL IV DATA: Not applicable SIGNED BY: Nicole Brennan, RT(R) May 20, 2023 9:15 AM [facility] CBC W Auto Differential pane l (Bld)on 05-20-2023 Basophils (Bld) [#/Vol] 10*3/uL Normal <0.11 [facility] Comment on above: Order Comment: Speci men Type: BLOOD SPECIMENOrdering Facility: [facility] Address: [address] [place] [address] Performed By: #### 5 7021-8 ####ENN[facility] LABORATORYCLIA [id number] [place] [address] [place] Basophils/100 WBC (Bld) 0.3 % Normal [facility] Comment on above: Order Comment: Speci men Type: BLOOD SPECIMENOrdering Facility: [facility] Address: [address] [place] [address] Performed By: #### 5 7021-8 ####ENNICE LABORATORYCLIA [id number] [place] [address] [place] Differential cell count method Nom (Bld) Auto Normal [facility] Comment on above: Order Comment: Speci men Type: BLOOD SPECIMENOrdering Facility: [facility] Address: [address] [address] Performed By: #### 5 7021-8 ####[facility] LABORATORYCLIA [id number] [place] [address] [place] Eosinophils (Bld) [#/Vol] 0.08 10*3/uL Normal <0.46 [facility] Comment on above: Order Comment: Speci men Type: BLOOD SPECIMENOrdering Facility: [facility] Address: [address] [address] Performed By: #### 5 7021-8 ####[facility] LABORATORYCLIA [id number] [address] [place] Eosinophils/100 WBC (Bld) 2.3 % Normal [facility] Comment on above: Order Comment: Speci men Type: BLOOD SPECIMENOrdering Facility: [facility] Address: [address] [address] Performed By: #### 5 7021-8 ####ROS[facility] LABORATORYCLIA [id number] [address] [place] Erythrocyte distribution width (RBC) [Ratio] 12.5 % Normal 11.5-15.0 [facility] Comment on above: Order Comment: Speci men Type: BLOOD SPECIMENOrdering Facility: [facility] Address: [address] [address] Performed By: #### 5 7021-8 ####[facility] LABORATORYCLIA [id number] [place] [address] [place] Hematocrit (Bld) [Volume fraction] 38.2 % Low 39.0-51.0 [facility] Comment on above: Order Comment: Speci men Type: BLOOD SPECIMENOrdering Facility: [facility] Address: [address] [address] Performed By: #### 5 7021-8 ####ROS[facility]IO LABORATORYCLIA [id number] [place] [address] [place] Hemoglobin (Bld) [Mass/Vol] 13.0 g/dL Normal 13.0-17.0 [facility] Comment on above: Order Comment: Speci men Type: BLOOD SPECIMENOrdering Facility: [facility] Address: [address] [place] [address] Performed By: #### 5 7021-8 ####ROSARIO LABORATORYCLIA [id number] [place] [address] [place] Immature granulocytes (Bld) [#/Vol] 10*3/uL Normal <0.10 [facility] Comment on above: Order Comment: Speci men Type: BLOOD SPECIMENOrdering Facility: [facility] Address: [address] [address] Performed By: #### 5 7021-8 ####[facility] LABORATORYCLIA [id number] [address] [place] Immature granulocytes/100 WBC (Bld) 0.6 % Normal [facility] Comment on above: Order Comment: Speci men Type: BLOOD SPECIMENOrdering Facility: [facility] Address: [address] [address] Performed By: #### 5 7021-8 ####[facility] LABORATORYCLIA [id number] [place] [address] [place] Lymphocytes (Bld) [#/Vol] 0.63 10*3/uL Low 1.00-4.00 [facility] Comment on above: Order Comment: Speci men Type: BLOOD SPECIMENOrdering Facility: [facility] Address: [address] [address] Performed By: #### 5 7021-8 ####[facility] LABORATORYCLIA [id number] [address] Lymphocytes/100 WBC (Bld) 18.1 % Normal [facility] Comment on above: Order Comment: Speci men Type: BLOOD SPECIMENOrdering Facility: [facility] Address: [address] [address] Performed By: #### 5 7021-8 ####[facility] LABORATORYCLIA [id number] [place] [address] [place] MCH (RBC) [Entitic mass] 29.2 pg Normal 26.0-34.0 [facility] Comment on above: Order Comment: Speci men Type: BLOOD SPECIMENOrdering Facility: [facility] Address: [address] [place] [address] Performed By: #### 5 7021-8 ####ROS[facility] LABORATORYCLIA [id number] [place] [address] [place] MCHC (RBC) [Mass/Vol] 34.0 g/dL Normal 30.5-36.0 [facility] Comment on above: Order Comment: Speci men Type: BLOOD SPECIMENOrdering Facility: [facility] Address: [address] [place] [address] Performed By: #### 5 7021-8 ####ROS[facility] LABORATORYCLIA [id number] [place] [address] [place] MCV (RBC) [Entitic vol] 85.8 fL Normal 80.0-100.0 [facility] Comment on above: Order Comment: Speci men Type: BLOOD SPECIMENOrdering Facility: [facility] Address: [address] [place] [address] Performed By: #### 5 7021-8 ####[facility] LABORATORYCLIA [id number] [place] [address] [place] Monocytes (Bld) [#/Vol] 0.28 10*3/uL Normal <0.87 [facility] Comment on above: Order Comment: Speci men Type: BLOOD SPECIMENOrdering Facility: [facility] Address: [address] [place] [address] Performed By: #### 5 7021-8 ####ROSARIO LABORATORYCLIA [id number] [address] [place] Monocytes/100 WBC (Bld) 8.0 % Normal [facility] Comment on above: Order Comment: Speci men Type: BLOOD SPECIMENOrdering Facility: [facility] Address: [address] [place] [address] Performed By: #### 5 7021-8 ####[facility] LABORATORYCLIA [id number] [place] [address] [place] Neutrophils (Bld) [#/Vol] 2.47 10*3/uL Normal 1.45-7.50 [facility] Comment on above: Order Comment: Speci men Type: BLOOD SPECIMENOrdering Facility: [facility] Address: [address] [place] [address] Performed By: #### 5 7021-8 ####[facility] LABORATORYCLIA [id number] [place] [address] [place] Neutrophils/100 WBC (Bld) 70.7 % Normal [facility] Comment on above: Order Comment: Speci men Type: BLOOD SPECIMENOrdering Facility: [facility] Address: [address] [place] [address] Performed By: #### 5 7021-8 ####[facility] LABORATORYCLIA [id number] [place] [address] [place] Nucleated RBC (Bld) [#/Vol] 10*3/uL Normal <0.01 [facility] Comment on above: Order Comment: Speci men Type: BLOOD SPECIMENOrdering Facility: [facility] Address: [address] [place] [address] Performed By: #### 5 7021-8 ####[facility] LABORATORYCLIA [id number] [place] [address] [place] Nucleated RBC/100 WBC (Bld) [Ratio] 0.0 /100 WBC Normal [facility] Comment on above: Order Comment: Speci men Type: BLOOD SPECIMENOrdering Facility: [facility] Address: [address] [place] [address] Performed By: #### 5 7021-8 ####[facility] LABORATORYCLIA [id number] [place] [address] [place] Platelet mean volume (Bld) [Entitic vol] 10.8 fL Normal 9.0-12.7 [facility] Comment on above: Order Comment: Speci men Type: BLOOD SPECIMENOrdering Facility: [facility] Address: [address] [place] [address] Performed By: #### 5 7021-8 ####[facility] LABORATORYCLIA [id number] [place] [address] [place] Platelets (Bld) [#/Vol] 139 10*3/uL Low 150-400 [facility] Comment on above: Order Comment: Speci men Type: BLOOD SPECIMENOrdering Facility: [facility] Address: [address] [address] Result Comment: No c lot detected. Performed By: #### 5 7021-8 ####[facility] LABORATORYCLIA [id number] [address] RBC (Bld) [#/Vol] 4.45 10*6/uL Normal 4.20-6.00 [facility] Comment on above: Order Comment: Speci men Type: BLOOD SPECIMENOrdering Facility: [facility] Address: [address] [address] Performed By: #### 5 7021-8 ####ROS[facility] LABORATORYCLIA [id number] [address] WBC (Bld) [#/Vol] 3.49 10*3/uL Low 3.70-11.00 [facility] Comment on above: Order Comment: Speci men Type: BLOOD SPECIMENOrdering Facility: [facility] Address: [address] [address] Performed By: #### 5 7021-8 ####[facility] LABORATORYCLIA [id number] [address] CTA ABD/PELV W IVCONon 05-20 CTA ABD/PELV W IVCON * * *Final Report* * * DATE OF EXAM: May 20 2023 12:04PM [facility]VC 0134 - CTA ABD/PELV W IVCON / PROCEDURE REASON: Aortic dissection suspected * * * * Physician Interpretation * * * * EXAMINATION: CTA CHEST (GATED) WO/W IVCON, CTA ABD/PELV W IVCON CLINICAL HISTORY: Aortic dissection TECHNIQUE: CT of the chest from the thoracic inlet to the upper abdomen was performed following administration of IV contrast. CT of the abdomen and pelvis was performed using standard technique, scanning from just above the dome of the diaphragm to the symphysis pubis after administration of IV contrast. A noncontrast study was performed through the chest followed by gated imaging through the chest to evaluate for aortic dissection. Contrast: IV 130 (accession [id number]), 120 (accession [id number]) ml of Omnipaque 350 CT Radiation dose: Integrated Dose-length product (DLP) for this visit = 1514 mGy*cm CT Dose Reduction Employed: Automated exposure control (AEC) COMPARISON: 02/21/2021 RESULT: Limitations: None. Chest: Lines, tubes, and devices: None. Lung parenchyma and airways: No consolidation. No suspicious pulmonary nodule. The central airways are patent. Pleural space: No pleural effusion. No pleural thickening. Lower neck, lymph nodes, and mediastinum: The imaged thyroid gland is normal. No lymphadenopathy in the supraclavicular, axillary, mediastinal, or hilar regions. Heart, pericardium, and thoracic vessels: The thoracic aorta demonstrates fusiform aneurysmal dilatation of the ascending aorta measuring 5.0 x 5.1 cm in AP and transverse dimension. The descending thoracic aorta measures 2.4 x 2.5 cm. No evidence of aortic dissection.. The cardiac chambers are normal in size. No pericardial effusion or thickening. Coronary artery calcifications (study is not optimized for coronary assessment): None apparent. Thoracic bones and soft tissues: No destructive bone lesion. Chest wall is unremarkable. Abdomen / Pelvis: Liver: No mass. Biliary: No bile duct dilation. Gallbladder is unremarkable. Spleen: No mass. No splenomegaly. Pancreas: No mass or duct dilation. Adrenals: No mass. Kidneys: No calculus or hydronephrosis. An exophytic enhancing renal mass is seen posteriorly off the midpole of the right kidney measuring 1.5 cm measuring 78 Hounsfield units concerning for small renal cell neoplasm. A small medial renal cyst is seen on the right measuring water attenuation and 2.7 cm in transverse dimension. An upper pole renal cyst is seen on the left measuring 2.9 cm. GI tract: No dilation or wall thickening. Sigmoid diverticulosis without evidence diverticulitis. Lymph nodes: No abdominal or pelvic lymphadenopathy. Mesentery/Peritoneum: No ascites or mass. Retroperitoneum: No mass. Vasculature: The celiac axis and SMA are patent. The portal vein and branches, splenic vein, SMV, and hepatic veins are patent. No evidence of aortic dissection. Pelvis: No mass, ascites or fluid collection. Abdominal / Pelvic Bones and Soft Tissues: No significant finding. IMPRESSION: 1. No evidence of aortic dissection 2. Fusiform aneurysmal dilatation of the ascending aorta measuring 5.1 cm. 3. Exophytic enhancing renal lesion posteriorly within the right kidney similar to the previous exam concerning for renal cell neoplasm. Further evaluation with MRI is recommended. 4. Otherwise no evidence of an acute intrathoracic, intra-abdominal or intrapelvic process. Acuity: Actionable Findings: Kidneys/Ureters/Bladder Routing Code: GU_1 Recommendation: MRI KIDNEY WO/W IVCON TimeFrame: 6-12 weeks --END OF FINDING-- Bpm Solution Architect: [email or web address] Transcribe Date/Time: May 20 2023 12:09P Dictated by : AMANDA HUTSON MD This examination was interpreted and the report reviewed and electronically signed by: AMANDA HUTSON MD on May 20 2023 12:20PM EST [id number] Normal [facility] CTA CHEST (GATED) WO/W IVCON on 05-20-2023 CTA CHEST (GATED) WO/W IVCON * * *Final Report* * * DATE OF EXAM: May 20 2023 12:04PM FVC 0468 - CTA CHEST (GATED) WO/W IVCON / PROCEDURE REASON: Aortic dissection suspected * * * * Physician Interpretation * * * * EXAMINATION: CTA CHEST (GATED) WO/W IVCON, CTA ABD/PELV W IVCON CLINICAL HISTORY: Aortic dissection TECHNIQUE: CT of the chest from the thoracic inlet to the upper abdomen was performed following administration of IV contrast. CT of the abdomen and pelvis was performed using standard technique, scanning from just above the dome of the diaphragm to the symphysis pubis after administration of IV contrast. A noncontrast study was performed through the chest followed by gated imaging through the chest to evaluate for aortic dissection. Contrast: IV 130 (accession [id number]), 120 (accession [id number]) ml of Omnipaque 350 CT Radiation dose: Integrated Dose-length product (DLP) for this visit = 1514 mGy*cm CT Dose Reduction Employed: Automated exposure control (AEC) COMPARISON: 02/21/2021 RESULT: Limitations: None. Chest: Lines, tubes, and devices: None. Lung parenchyma and airways: No consolidation. No suspicious pulmonary nodule. The central airways are patent. Pleural space: No pleural effusion. No pleural thickening. Lower neck, lymph nodes, and mediastinum: The imaged thyroid gland is normal. No lymphadenopathy in the supraclavicular, axillary, mediastinal, or hilar regions. Heart, pericardium, and thoracic vessels: The thoracic aorta demonstrates fusiform aneurysmal dilatation of the ascending aorta measuring 5.0 x 5.1 cm in AP and transverse dimension. The descending thoracic aorta measures 2.4 x 2.5 cm. No evidence of aortic dissection.. The cardiac chambers are normal in size. No pericardial effusion or thickening. Coronary artery calcifications (study is not optimized for coronary assessment): None apparent. Thoracic bones and soft tissues: No destructive bone lesion. Chest wall is unremarkable. Abdomen / Pelvis: Liver: No mass. Biliary: No bile duct dilation. Gallbladder is unremarkable. Spleen: No mass. No splenomegaly. Pancreas: No mass or duct dilation. Adrenals: No mass. Kidneys: No calculus or hydronephrosis. An exophytic enhancing renal mass is seen posteriorly off the midpole of the right kidney measuring 1.5 cm measuring 78 Hounsfield units concerning for small renal cell neoplasm. A small medial renal cyst is seen on the right measuring water attenuation and 2.7 cm in transverse dimension. An upper pole renal cyst is seen on the left measuring 2.9 cm. GI tract: No dilation or wall thickening. Sigmoid diverticulosis without evidence diverticulitis. Lymph nodes: No abdominal or pelvic lymphadenopathy. Mesentery/Peritoneum: No ascites or mass. Retroperitoneum: No mass. Vasculature: The celiac axis and SMA are patent. The portal vein and branches, splenic vein, SMV, and hepatic veins are patent. No evidence of aortic dissection. Pelvis: No mass, ascites or fluid collection. Abdominal / Pelvic Bones and Soft Tissues: No significant finding. IMPRESSION: 1. No evidence of aortic dissection 2. Fusiform aneurysmal dilatation of the ascending aorta measuring 5.1 cm. 3. Exophytic enhancing renal lesion posteriorly within the right kidney similar to the previous exam concerning for renal cell neoplasm. Further evaluation with MRI is recommended. 4. Otherwise no evidence of an acute intrathoracic, intra-abdominal or intrapelvic process. Acuity: Actionable Findings: Kidneys/Ureters/Bladder Routing Code: GU_1 Recommendation: MRI KIDNEY WO/W IVCON TimeFrame: 6-12 weeks --END OF FINDING-- Bpm Solution Architect: [email or web address] Transcribe Date/Time: May 20 2023 12:09P Dictated by : AMANDA HUTSON MD This examination was interpreted and the report reviewed and electronically signed by: AMANDA HUTSON MD on May 20 2023 12:20PM EST [id number] Normal [facility] Comprehensive metabolic 2000 panelon 05-20-2023 Albumin [Mass/Vol] 4.4 g/dL Normal 3.9-4.9 [facility] Comment on above: Order Comment: Speci men Type: BLOOD SPECIMENOrdering Facility: [facility] Address: [address] [place] [address] Performed By: #### 2 4323-8, [id number], 3040-3 ####[facility] LABORATORYCLIA [id number] [place] [id number] [place] ALP [Catalytic activity/Vol] 74 U/L Normal 38-113 [facility] Comment on above: Order Comment: Speci men Type: BLOOD SPECIMENOrdering Facility: [facility] Address: [address] [place] [address] Performed By: #### 2 4323-8, [id number], 3040-3 ####[facility] LABORATORYCLIA [id number] [place] [address] [place] ALT [Catalytic activity/Vol] 21 U/L Normal 10-54 [facility] Comment on above: Order Comment: Speci men Type: BLOOD SPECIMENOrdering Facility: [facility] Address: [address] [place] [address] Performed By: #### 2 4323-8, [id number], 3040-3 ####[facility] LABORATORYCLIA [id number] [place] [id number] [place] Anion gap [Moles/Vol] 13 mmol/L Normal 9-18 [facility] Comment on above: Order Comment: Speci men Type: BLOOD SPECIMENOrdering Facility: [facility] Address: [address] [place] [address] Performed By: #### 2 4323-8, [id number], 3040-3 ####ENN[facility] LABORATORYCLIA [id number] [place] [id number] [place] AST [Catalytic activity/Vol] Normal [facility] Comment on above: Order Comment: Speci men Type: BLOOD SPECIMENOrdering Facility: [facility] Address: [address] [address] Result Comment: Unab le to assay due to interference from hemolysis. Suggest reorder as clinically indicated. Performed By: #### 2 4323-8, [id number], 3040-3 ####ROSAR[facility] LABORATORYCLIA [id number] [place] [address] [place] Bilirubin [Mass/Vol] 0.2 mg/dL Normal 0.2-1.3 [facility] Comment on above: Order Comment: Speci men Type: BLOOD SPECIMENOrdering Facility: [facility] Address: [address] [address] Performed By: #### 2 4323-8, [id number], 0-3 ####ROS[facility] LABORATORYCLIA [id number] [place] [address] [place] Calcium [Mass/Vol] 8.7 mg/dL Normal 8.5-10.2 [facility] Comment on above: Order Comment: Speci men Type: BLOOD SPECIMENOrdering Facility: [facility] Address: [address] [address] Performed By: #### 2 4323-8, [id number], 3039-3 ####ROS[facility] LABORATORYCLIA [id number] [place] [address] [place] Chloride [Moles/Vol] 102 mmol/L Normal 97-105 [facility] Comment on above: Order Comment: Speci men Type: BLOOD SPECIMENOrdering Facility: [facility] Address: [address] [address] Performed By: #### 2 4323-8, [id number], 0-3 ####ROS[facility] LABORATORYCLIA [id number] [place] [id number] [place] CO2 [Moles/Vol] 26 mmol/L Normal 22-30 [facility] Comment on above: Order Comment: Speci men Type: BLOOD SPECIMENOrdering Facility: [facility] Address: [address] [address] Performed By: #### 2 4323-8, [id number], 3040-3 ####ENN[facility] LABORATORYCLIA [id number] [place] [address] [place] Creatinine [Mass/Vol] 1.10 mg/dL Normal 0.73-1.22 [facility] Comment on above: Order Comment: Ariella lucero Type: BLOOD SPECIMENOrdering Facility: [facility] Address: [address] [address] Performed By: #### 2 4323-8, [id number], 3040-3 ####ENN[facility] LABORATORYCLIA [id number] [place] [address] [place] Creatinine and Glomerular filtration rate.predicted panel (S/P/Bld) 81 mL/min/1.73m??? Normal >=60 [facility] Comment on above: Order Comment: Ariella [facility] Type: BLOOD SPECIMENOrdering Facility: [facility] Address: [address] [place] [address] Result Comment: Nikole mated Glomerular Filtration Rate (eGFR) is calculated using the 2020 CKD-EPI creatinine equation. This equation utilizes serum creatinine, sex, and age as parameters. The creatinine assay has traceable calibration to isotope dilution-mass spectrometry. Refer to KDIGO guidelines for clinical interpretation. In patients with unstable renal function, e.g. those with acute kidney injury, the eGFR may not accurately reflect actual GFR. Performed By: #### 2 4323-8, [id number], 3040-3 ####ENN[facility] LABORATORYCLIA [id number] [place] [id number] [place] Glucose [Mass/Vol] 108 mg/dL High 74-99 [facility] Comment on above: Order Comment: Ariella lucero Type: BLOOD SPECIMENOrdering Facility: [facility] Address: [address] [address] Result Comment: The [place] Diabetes [employer] (ADA) provides guidance for cutoff values for fasting glucose and random glucose. The ADA defines fasting as no caloric intake for at least 8 hours. Fasting plasma glucose results between 100 to 125 mg/dL indicate increased risk for diabetes (prediabetes). Fasting plasma glucose results greater than or equal to 126 mg/dL meet the criteria for diagnosis of diabetes. In the absence of unequivocal hyperglycemia, results should be confirmed by repeat testing. In a patient with classic symptoms of hyperglycemia or hyperglycemic crisis, random plasma glucose results greater than or equal to 200 mg/dL meet the criteria for diagnosis of diabetes. Reference: Standards of Medical Care in Diabetes 2016, [place] [employer]. Diabetes Care. 2016.39(Suppl 1). Performed By: #### 2 4323-8, [id number], 3040-3 ####ROS[facility] LABORATORYCLIA [id number] [place] [id number] [place] Potassium [Moles/Vol] 4.1 mmol/L Normal 3.7-5.1 [facility] Comment on above: Order Comment: Ariella lucero Type: BLOOD SPECIMENOrdering Facility: [facility] Address: [address] [place] [address] Performed By: #### 2 4323-8, [id number], 3040-3 ####[facility] LABORATORYCLIA [id number] [place] [address] [place] Protein [Mass/Vol] 7.0 g/dL Normal 6.3-8.0 [facility] Comment on above: Order Comment: Ariella lucero Type: BLOOD SPECIMENOrdering Facility: [facility] Address: [address] [address] Performed By: #### 2 4323-8, [id number], 3040-3 ####[facility] LABORATORYCLIA [id number] [place] [id number] [place] Sodium [Moles/Vol] 141 mmol/L Normal 136-144 [facility] Comment on above: Order Comment: Ariella lucero Type: BLOOD SPECIMENOrdering Facility: [facility] Address: [address] [address] Performed By: #### 2 4323-8, [id number], 3040-3 ####ROS[facility] LABORATORYCLIA [id number] [place] [id number] [place] Urea nitrogen [Mass/Vol] 15 mg/dL Normal 9-24 [facility] Comment on above: Order Comment: Brentoni nic Type: BLOOD SPECIMENOrdering Facility: [facility] Address: [address] [place] [address] Performed By: #### 2 4323-8, [id number], 3040-3 ####[facility] LABORATORYCLIA [id number] [address] OF [facility] ECG COMPLETEon 05-20-2023 ECG COMPLETE Ventricular Rate : 8 1 BPM Atrial Rate : 80 BPM P-R Interval : 178 ms QRS Duration : 102 ms Q-T Interval : 353 ms QTC Calculation(Bazett) : 410 ms Calculated P [place] : 26 degrees Calculated R [place] : -28 degrees Calculated T [place] : 0 degrees Sinus rhythm Left ventricular hypertrophy Abnormal ECG see epic note pr Dr Lily Rodriguez about this ekg Confirmed by MD RODRIGUEZ MICHAEL ([id number]), book editor ELENI LERNER ([id number]) on 06/13/2023 11:33:48 AM NAME : HOSEA ALVAREZ PID : [id number] : 1970 Gender : Male Race : ORD : [id number] Procedure Date : May 20 2023 07:53:32 Edit Date : Jun 13 2023 11:33:50 Diagnosis: Sinus rhythm Left ventricular hypertrophy Abnormal ECG see epic note pr Dr Lily Rodriguez about this ekg Confirmed by MD RODRIGUEZ MICHAEL ([id number]), book editor ELENI LERNER ([id number]) on 06/13/2023 11:33:48 AM Test Reason : Pre-OP Location : 402 : [facility] Overread By : MD RODRIGUEZ MICHAEL Edited By : ELENI LERNER Referred By : , Acquired by : SIOBHAN [facility] ED NOTEon 05-20-2023 ED NOTE HNO ID: [id number] Author: Jacey Hansen RN Service: ? Author Type: Registered Nurse Type: ED Notes Filed: 05/20/2023 3:14 PM Note Text: Spoke with at this time. Notified him of most recent pressure post BP meds given of 165/109. Per ok to D/C pt at this time. [facility] ED NOTE HNO ID: [id number] Author: Shayy Oneal, BROOKLYNN Service: ? Author Type: Registered Nurse Type: ED Notes Filed: 05/20/2023 12:13 PM Note Text: MD notified of pt's blood pressure at this time [facility] ED PROV NOTEon 05-20-2023 ED PROV NOTE HNO ID: [id number] Author: Lily Rodriguez MD Service: ? Author Type: Physician Type: ED Provider Notes Filed: 05/20/2023 7:27 PM Note Text: ED Provider Note Patient Name: Hosea Alvarez : 1970 SERVICE DATE: 05/20/23 History Patient presents with: Abdominal Pain: Pt reports hx of AAA, reports he started feeling a ripping feeling in his abd this AM, denies CP, reports N/V. Pt had checked in earlier today for chest pain but reports it has now subsided. 52-year-old male history of 4.4 cm ascending thoracic aneurysm on CTA chest 02/21/2021, anxiety, hypertension, alcohol use, homeless. Care plan reviewed presents with abdominal pain right lower 1 hour prior to arrival ate some bad food I have diverticulitis . No fever nausea. Per him vomiting x3 episodes no bloody. No diarrhea no black or bloody stools. No urinary symptoms. States chest pain last evening onset around 1 AM while walking describes it as a dull ache no radiation to his arm jaw neck or back. Episode x10 minutes with spontaneous resolution. No recurrent chest pain no shortness of breath no pleuritic pain no lower extremity pain or edema. Here awake alert no distress abdomen soft mild right lower quadrant tenderness on exam. Denies past surgical history. PAST MEDICAL HISTORY Diagnosis Date Hemorrhoids Hypertension Hypoglycemia Renal disorder renal stenosis No past surgical history on file. No family history on file. Social History Tobacco Use Smoking status: Former Types: Cigarettes Smokeless tobacco: Never Vaping Use Vaping Use: Never used Substance and Sexual Activity Alcohol use: Yes Alcohol/week: 7.0 standard drinks of alcohol Types: 7 Cans of beer per week Comment: pt sts a beer a day. daily Drug use: No Sexual activity: Not on file ALLERGIES Allergen Reactions Caffeine Rash Other reaction(s): Shakiness [place] GI Upset, Rash, Vomiting Statused by Person: Imelda Meza.(Altaf Gold) on [phone] Statused by Person: SRAVANTHI MONGE([facility]) on [phone] Statused by Person: Imelda Meza.(T Carter2) on [phone] Statused by Person: SRAVANTHI SALEEM([facility]) on [phone] Amlodipine Swelling Amoxicillin GI Upset Chocolate Flavor GI Upset Ciprofloxacin Other: See Comments Diazepam Unknown Fentanyl Mental Status Change Lorazepam GI Upset Other reaction(s): Abdominal Pain Seasonal Allergies GI Upset Abdominal pain Abdominal pain Serotonin Hcl Mental Status Change 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 HENT: Negative for congestion and sore throat. Eyes: Negative for pain and visual disturbance. Respiratory: Negative for apnea, cough and shortness of breath. Cardiovascular: Positive for chest pain. Negative for palpitations. Gastrointestinal: Positive for abdominal pain, nausea and vomiting. Negative for diarrhea. Genitourinary: Negative for dysuria, flank pain and hematuria. Musculoskeletal: Negative for back pain, myalgias and neck stiffness. Skin: Negative for color change and rash. Neurological: Negative for weakness and numbness. Psychiatric/Behavioral: Negative for hallucinations and suicidal ideas. All other systems reviewed and are negative. Physical Exam Vitals BP Pulse Temp Temp src Resp SpO2 Weight Height 05/20/23 0749 05/20/23 0749 05/20/23 0749 -- 05/20/23 0746 05/20/23 0749 05/20/23 0746 05/20/23 0746 144/103 90 36.3 ?C (97.3 ?F) 22 98 % 90.7 kg (200 lb) 1.676 m (5' 6 ) Physical Exam Vitals and nursing note reviewed. Constitutional: General: He is not in acute distress. Appearance: He is not diaphoretic. HENT: Head: Normocephalic and atraumatic. Right Ear: External ear normal. Left Ear: External ear normal. Nose: Nose normal. Mouth/Throat: Mouth: Mucous membranes are moist. Pharynx: Oropharynx is clear. Eyes: General: Right eye: No discharge. Left eye: No discharge. Conjunctiva/sclera: Conjunctivae normal. Pupils: Pupils are equal, round, and reactive to light. Cardiovascular: Rate and Rhythm: Normal rate and regular rhythm. Pulses: Normal pulses. Heart sounds: Normal heart sounds. Pulmonary: Effort: Pulmonary effort is normal. No respiratory distress. Breath sounds: Normal breath sounds. No stridor. No wheezing or rales. Abdominal: General: Bowel sounds are normal. There is no distension. Palpations: Abdomen is soft. Tenderness: There is no abdominal tenderness. Musculoskeletal: General: No tenderness. Normal range of motion. Cervical back: Normal range of motion and neck supple. Skin: General: Skin is warm and dry. Findings: No rash. Ne (more content not included)... [facility] EKGon 05-20-2023 Electrocardiogram Ventricular Rate : 8 2 BPM Atrial Rate : 82 BPM P-R Interval : 168 ms QRS Duration : 102 ms Q-T Interval : 379 ms QTC Calculation(Bazett) : 443 ms Calculated P [place] : 40 degrees Calculated R [place] : 10 degrees Calculated T [place] : -2 degrees Sinus rhythm Probable anterolateral infarct, old Borderline T abnormalities, inferior leads Abnormal ECG NO STEMI. Confirmed by DEVYN PRUITT DO ([id number]), book editor HELGA GILMORE ([id number]) on 05/20/2023 11:09:02 AM NAME : HOSEA ALVAREZ PID : [id number] : 1970 Gender : Male Race : ORD : Procedure Date : May 20 2023 02:30:40 Edit Date : May 20 2023 11:09:03 Diagnosis: Sinus rhythm Probable anterolateral infarct, old Borderline T abnormalities, inferior leads Abnormal ECG NO STEMI. Confirmed by DEVYN PRUITT DO ([id number]), book editor HELGA GILMORE ([id number]) on 05/20/2023 11:09:02 AM Test Reason : Location : 402 : [facility] Overread By : DEVYN PRUITT DO Edited By : HELGA GILMORE Referred By : , Acquired by : [id number], Normal [facility] HIGH SENSITIVITY TROPONIN T (INITIAL)on 05-20-2023 Troponin T.cardiac High sensitivity method [Mass/Vol] 8 ng/L Normal <12 [facility] Comment on above: Order Comment: Ariella lucero Type: BLOOD SPECIMENOrdering Facility: [facility] Address: [address] [address] Result Comment: When assessing risk for acute coronary syndromes: In patients undergoing blood draw greater than or equal to 2 hours from symptom onset, with history of very low to moderate risk and non-ischemic ECG, an initial hs-Troponin T less than 12 ng/L AND a 1 hour delta hs-Troponin T less than 3 ng/L should be considered very low risk for 30 day MACE. Performed By: #### 2 4323-8, [id number], 3040-3 ####[facility] LABORATORYCLIA [id number] [address] HIGH SENSITIVITY TROPONIN T (SECOND)on 05-20-2023 Troponin T.cardiac High sensitivity method [Mass/Vol] 8 ng/L Normal <12 [facility] Comment on above: Order Comment: Ariella lucero Type: BLOOD SPECIMEN [facility]: [facility] Address: [address] [address] Result Comment: When assessing risk for acute coronary syndromes: In patients undergoing blood draw greater than or equal to 2 hours from symptom onset, with history of very low to moderate risk and non-ischemic ECG, an initial hs-Troponin T less than 12 ng/L AND a 1 hour delta hs-Troponin T less than 3 ng/L should be considered very low risk for 30 day MACE. Performed By: #### L [id number] #### [facility] CLIA [id number] [address] [place] [address] [place] Lipase SerPl-cCncon 05-20-20 23 Lipase [Catalytic activity/Vol] 23 U/L Normal 16-61 [facility] Comment on above: Order Comment: Ariella lucero Type: BLOOD SPECIMENOrdering Facility: [facility] Address: [address] [address] Performed By: #### 2 4323-8, [id number], 3040-3 ####[facility] LABORATORYCLIA [id number] [address] [place] Urinalysis complete panel (U )on 05-20-2023 Bilirubin Ql (U) Negative Normal Negative [facility] Comment on above: Order Comment: Speci men Type: URINE SPECIMEN [facility]: [facility] Address: [address] [place] [address] Performed By: #### 2 4356-8 #### [facility] CLIA [id number] [address] [place] [address] [place] Clarity (Unsp spec) Clear Normal Clear [facility] Comment on above: Order Comment: Speci men Type: URINE SPECIMEN [facility]: [facility] Address: [address] [place] [address] Performed By: #### 2 4356-8 #### [facility] CLIA [id number] [address] [place] [address] [place] Color (U) Light Yellow Normal Yellow [facility] Comment on above: Order Comment: Speci men Type: URINE SPECIMEN [facility]: [facility] Address: [address] [place] [address] Performed By: #### 2 4356-8 #### [facility] CLIA [id number] [address] [place] [address] [place] Glucose Test strip (U) [Mass/Vol] Negative Normal Trace, Negative [facility] Comment on above: Order Comment: Speci men Type: URINE SPECIMEN [facility] Address: [address] [place] [address] Performed By: #### 2 4356-8 #### [facility] CLIA [id number] [address] [place] [address] [place] Hemoglobin Ql (U) Negative Normal Negative, Trace [facility] Comment on above: Order Comment: Speci men Type: URINE SPECIMEN [facility] Address: [address] [place] [address] Performed By: #### 2 4356-8 #### [facility] CLIA [id number] [address] [place] [address] [place] Ketones Ql (U) Negative Normal Negative, Trace [facility] Comment on above: Order Comment: Speci men Type: URINE SPECIMEN [facility] Address: [address] [place] [address] Performed By: #### 2 4356-8 #### [facility] CLIA [id number] [address] [place] [address] [place] [facility] Leukocyte esterase Test strip Ql (U) Negative Normal Negative, 25 Sheba/uL [facility] Comment on above: Order Comment: Speci men Type: URINE SPECIMEN [facility] Address: [address] [place] [address] Performed By: #### 2 4356-8 #### [facility] CLIA [id number] [address] [place] [address] [place] Nitrite Ql (U) Negative Normal Negative [facility] Comment on above: Order Comment: Speci men Type: URINE SPECIMEN [facility] Address: [address] [place] [address] Performed By: #### 2 4356-8 #### [facility] CLIA [id number] [address] [place] [address] [place] pH (U) 6.5 [pH] Normal 5.0-8.0 [facility] Comment on above: Order Comment: Speci men Type: URINE SPECIMEN [facility] Address: [address] [place] [address] Performed By: #### 2 4356-8 #### [facility] CLIA [id number] [address] [place] [address] [place] Protein (U) [Mass/Vol] Trace Normal Trace, Negative [facility] Comment on above: Order Comment: Speci men Type: URINE SPECIMEN [facility] Address: [address] [place] [address] Performed By: #### 2 4356-8 #### [facility] CLIA [id number] [address] [place] [address] [place] RBC LM.HPF (Urine sed) [#/Area] 0-3 /HPF Normal 0-3 /HPF [facility] Comment on above: Order Comment: Speci men Type: URINE SPECIMEN [facility] Address: [address] [address] Performed By: #### 2 4356-8 #### [facility] CLIA [id number] [address] [place] [address] [place] Specific gravity (U) [Rel density] 1.013 Normal 1.005-1.030 [facility] Comment on above: Order Comment: Speci men Type: URINE SPECIMEN [facility] Address: [address] [place] [address] Performed By: #### 2 4356-8 #### [facility] CLIA [id number] [address] [place] [address] [place] Urobilinogen Ql (U) Negative Normal Negative [facility] Comment on above: Order Comment: Speci men Type: URINE SPECIMEN [facility] Address: [address] [place] [address] Performed By: #### 2 4356-8 #### [facility] CLIA [id number] [address] [place] [address] [place] WBC LM.HPF (Urine sed) [#/Area] 0-5 /HPF Normal 0-5 /HPF [facility] Comment on above: Order Comment: Speci men Type: URINE SPECIMEN [facility] Address: [address] [place] [address] Performed By: #### 2 4356-8 #### [facility] CLIA [id number] [address] [place] [address] [place] XR CHEST 1V FRONTAL PORTon 0 05-20-2023 XR CHEST 1V FRONTAL PORT * * *Final Report* * * DATE OF EXAM: May 20 2023 9:17AM FVX 5376 - XR CHEST 1V FRONTAL PORT / PROCEDURE REASON: Chest pain, nonspecific * * * * Physician Interpretation * * * * FRONTAL CHEST RADIOGRAPH HISTORY: Chest pain, nonspecific. TECHNIQUE: Frontal view of the chest was obtained. COMPARISON: 01/19/2023 RESULT: Cardiomediastinal silhouette is normal. No consolidative opacity. No pleural effusion or pneumothorax. Pulmonary vasculature is unremarkable. IMPRESSION: No acute cardiopulmonary process. Bpm Solution Architect: AGUEDA Transcribe Date/Time: May 20 2023 10:05A Dictated by : RAMIN CROCKETT MD This examination was interpreted and the report reviewed and electronically signed by: RAMIN CROCKETT MD on May 20 2023 10:05AM EST [id number] [facility] ED NOTEon 05-18-2023 ED NOTE HNO ID: [id number] Author: Luís Monroy, BROOKLYNN Service: ? Author Type: Registered Nurse Type: ED Notes Filed: 05/18/2023 7:56 PM Note Text: Pt received written and verbal discharge instructions. Pt verbalizes understanding. All questions answered. Instructed pt to follow up with PCP or follow-up DR. No acute distress noted. Instructed to come back to Emergency Room if symptoms worsen. Pt verbalized understanding. All belongings with patient. Pt departed ED. [facility] ED NOTE HNO ID: [id number] Author: Luís Monroy RN Service: ? Author Type: Registered Nurse Type: ED Notes Filed: 05/18/2023 7:50 PM Note Text: Pt talking to RN, asking what nationality she is. Pt states you don't have a big butt like most Hispanics I know. [facility] ED NOTE HNO ID: [id number] Author: Tere Williamson RN Service: ? Author Type: Registered Nurse Type: ED Notes Filed: 05/18/2023 6:18 PM Note Text: Patient to the ED with c/o R toe pain. States infection however upon assessment appears to be a corn/callus which he has on multiple toes. No redness or erythema. [facility] ED PROV NOTEon 05-18-2023 ED PROV NOTE HNO ID: [id number] Author: Liam Pham MD Service: Emergency Medicine Author Type: Physician Type: ED Provider Notes Filed: 05/18/2023 8:37 PM Note Text: ED Provider Note Patient Name: Hosea Alvarez SERVICE DATE: 05/18/23 History No chief complaint on file. HPI 52-year-old male who presents for right second toe callus and concern for a blister. Patient states he has had chronic calluses of his feet though was concerned there may be a blister developing of the second toe. He states it looks more yellow than typical. Denies any specific pain of the foot. Denies any fevers or chills. No hx of diabetes. Denies numbness or tingling of the feet. PAST MEDICAL HISTORY Diagnosis Date Hemorrhoids Hypertension Hypoglycemia Renal disorder renal stenosis History reviewed. No pertinent surgical history. No family history on file. Social History Tobacco Use Smoking status: Former Types: Cigarettes Smokeless tobacco: Never Vaping Use Vaping Use: Never used Substance and Sexual Activity Alcohol use: Yes Alcohol/week: 7.0 standard drinks of alcohol Types: 7 Cans of beer per week Comment: pt sts a beer a day. daily Drug use: No Sexual activity: Not on file ALLERGIES Allergen Reactions Caffeine Rash Other reaction(s): Shakiness [place] GI Upset, Rash, Vomiting Statused by Person: Imelda Meza.([employer]2) on Statused by Person: SRAVANTHI MONGE([facility]) on Statused by Person: Imelda Meza.(Transmiter2) on Statused by Person: SRAVANTHI MONGE([facility]) on Amlodipine Swelling Amoxicillin GI Upset Chocolate Flavor GI Upset Ciprofloxacin Other: See Comments Diazepam Unknown Fentanyl Mental Status Change Lorazepam GI Upset Other reaction(s): Abdominal Pain Seasonal Allergies GI Upset Abdominal pain Abdominal pain Serotonin Hcl Mental Status Change 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 Neurological: Negative for numbness. Hematological: Does not bruise/bleed easily. Physical Exam Vitals [05/18/23 1809] BP Pulse Temp Temp src Resp SpO2 Weight Height 130/81 80 36.9 ?C (98.5 ?F) Oral 16 99 % -- -- Provider examination performed via virtual platform with assistance from bedside clinician. Provider Location: [facility] Patient Location[facility] Physical Exam Vitals and nursing note reviewed. Musculoskeletal: Comments: Right foot. Patient points to the medial side of the second toe, there is a callus visualized that is yellow, there is no toe swelling or redness, the nurse palpated the area and felt the firm callus, no area of fluctuance palpated, patient appeared comfortable throughout the exam with no reported pain, there is no discharge. Diagnostic Testing ED Labs Ordered and Reviewed - No data to display Procedures ED Course / Clinical Impression Clinical Impressions as of 05/18/231941 Callus of toe Toenail deformity MDM / Disposition / Plan MDM Records Reviwed Electronic medical record reviewed and significant for multiple ED visits, hx of alcohol abuse, no recent admissions Vital signs were reviewed. MEDICATIONS ADMINISTERED ED Medication Administration from 05/18/2023 1729 to 05/18/20231956 None COURSE/MDM History and exam performed entirely via virtual platform during COVID-19 pandemic. Patient/Provider locations for exam: patient in ED and provider at remote location 52 year old presents for examination of a toe callus. As mentioned above, patient was concerned there may be a blister developing. On my virtual exam, I only visualize the callus. The nurse was with him in the room, palpated the area and reported no indication of blister. Patient also appeared comfortable throughout the exam with no reported pain. There is no redness or swelling, low concern for infection. Patient has no known history of neuropathy of the feet, denies any numbness, no history of diabetes though does have a history of alcohol abuse, may have some mild neuropathy that is undiagnosed at this point. Advised to purchase urea foot cream to help soften the calluses and shave them down with a file. Plan for follow-up with primary care physician or podiatry. Discharged home. The patient had the diagnosis explained to them. They were verbal discharge instructions and were instructed of the importance of close follow-up. Kendell Pham MD SIGNATURE: Liam Pham MD I have communicated my name and active licensure. The patient's identity and physical location were verified at the time of this visit. Either the patient o (more content not included)... Normal [facility] URINE CULTUREon 05-14-2023 Bacteria identified Cx Nom (U) Specimen source XXX: CLEAN VOIDED MIDSTREAM Performed at [address] [address] Service Cmnt XXX-Imp: NONE Performed at [place] [address] CC Number Ur: <10,000 CFU/ml Bacteria identified: STAPHYLOCOCCUS AUREUS NO FURTHER WORK-UP[place] [address] : FINAL 05/14/2023 [facility] Comment on above: Performed By: #### E JOHN #### [facility] [address] ADD ON LAB REQUESTon 023 ADD ON REQUEST [facility] Comment on above: Result Comment: ADDE D OK Performed at [place] [address] Performed By: #### A DDON #### [facility] [address] ADD ON TESTS MG [facility] Comment on above: Performed By: #### A DDON #### [facility] [address] ALCOHOL (ETHYL)on 05-11-2023 ALCOHOL (ETHYL) Normal 0-0.010 [facility] Comment on above: Result Comment: <0.0 10 Performed at [place] [address] Performed By: #### E JOHN #### [facility] [address] Alcoholon 05-11-2023 Ethanol [Mass/Vol] mg/dL [facility] Comment on above: Performed at [place] [address] B Natriuretic Peptideon 04-23 Natriuretic peptide.B prohormone N-Terminal [Mass/Vol] 36 PG/ML 0 - 138 PG/ML [facility] Comment on above: LESS THAN RESULT CHECKED Reference ranges are based on clinical submission data. These ranges represent the 95th percentile of normal cut-off points. As NT pro-BNP values approach 1000 pg/ml, clinical symptoms are more likely associated with CHF. Performed at [place] [address] Bacteria identified Cx Nom ( U)on 05-11-2023 Bacteria identified Cx Nom (Unsp spec) STAPHYLOCOCCUS AUREUS NO FURTHER WORK-UP. Performed at [facility],[address] [place] [address],[place] [address] [facility] [place] count (U) [#/Vol] <10,000 CFU/ml [facility] REPORT STATUS -[facility] DATA CONVERSION FINAL 05/14/2023 [facility] Service comment (Unsp spec) [Interp] NONE Performed at [facility] [id number] [place] [address] [facility] Specimen source Nom (Unsp spec) CLEAN VOIDED MIDSTREAM Performed at [facility] [address] [facility] [address] [facility] CBC W Differential panel, ne thod unspecified (Bld)on 05-11-2023 Basophils (Bld) [#/Vol] 0.01 10*3/uL [facility] Basophils/100 WBC (Bld) 0.30 % 0 - 1 % [facility] Differential cell count method Nom (Bld) AUTO DIFF [facility] Eosinophils (Bld) [#/Vol] 0.09 10*3/uL [facility] Eosinophils/100 WBC (Bld) 2.70 % 0 - 3 % [facility] Erythrocyte distribution width (RBC) [Entitic vol] 39.0 fL [facility] Erythrocyte distribution width (RBC) [Ratio] 12.5 % 11.7 - 15.0 % [facility] Hematocrit (Bld) [Volume fraction] 39.4 % Low 41 - 50 % [facility] Hemoglobin (Bld) [Mass/Vol] 13.4 g/dL Low [facility] Immature granulocytes (Bld) [#/Vol] 0.01 10*3/uL [facility] Interpretation and review of laboratory results Abnormal [facility] Lymphocytes (Bld) [#/Vol] 0.99 10*3/uL Low [facility] Lymphocytes/100 WBC (Bld) 29.50 % 20 - 40 % [facility] MCH (RBC) [Entitic mass] 29.5 pg 26 - 34 PG [facility] MCHC (RBC) [Mass/Vol] 34.0 % 31 - 37 % [facility] MCV (RBC) [Entitic vol] 86.8 fL [facility] Monocytes (Bld) [#/Vol] 0.26 10*3/uL [facility] Monocytes/100 WBC (Bld) 7.70 % 0 - 8 % [facility] Neutrophils (Bld) [#/Vol] 2.00 10*3/uL K/UL [facility] Comment on above: Performed at [place] [address] [facility] [address] Neutrophils.immature/ 100 WBC (Bld) 0.30 % 0.0 - 1.0 % [facility] Nucleated RBC/100 WBC (Bld) [Ratio] 0 % 0 /100 WBC [facility] Platelet mean volume (Bld) [Entitic vol] 11.1 fL [facility] Platelets (Bld) [#/Vol] 133 10*3/uL [facility] Comment on above: SAMPLE INTEGRITY [place] CKED CONSISTENT WITH PERIPHERAL SMEAR RESULT CHECKED RBC (Bld) [#/Vol] 4.54 10*6/uL [facility] Segmented neutrophils/100 WBC (Bld) 59.50 % 50 - 70 % [facility] WBC (Bld) [#/Vol] 3.2 10*3/uL [facility] CBC with Diffon 05-11-2023 AB IMMATURE NEUT 0.01 K/UL Normal 0.0-0.1 [facility] Comment on above: Performed By: #### E JOHN #### Main Laboratory [address] [address] ABS BASO 0.01 K/UL Normal 0.00-0.22 [facility] Comment on above: Performed By: #### E JOHN #### Main Laboratory [place] [address] [place] [address] ABS EOS 0.09 K/UL Normal 0-0.45 [facility] Comment on above: Performed By: #### E JOHN #### Main Laboratory [place] [address] [place] [address] ABS NEUTROPHILS 2.00 K/UL Normal 1.8-7.7 [facility] Comment on above: Performed By: #### E JOHN #### [facility] [address] [address] ABS.NEUT.CALCULATED 2.00 K/UL Normal [facility] Comment on above: Result Comment: Perf ormed at [address] [place] [address] Performed By: #### E JOHN #### [facility] [address] [address] Basophils/100 WBC (Bld) 0.30 % Normal 0-1 [facility] Comment on above: Performed By: #### E JOHN #### [address] [address] DIFF TYPE AUTO DIFF Normal [facility] Comment on above: Performed By: #### E JOHN #### [address] [address] Eosinophils/100 WBC (Bld) 2.70 % Normal 0-3 [facility] Comment on above: Performed By: #### E JOHN #### [address] [address] Erythrocyte distribution width (RBC) [Ratio] 12.5 % Normal 11.7-15.0 [facility] Comment on above: Performed By: #### E JOHN #### [address] [address] Hematocrit (Bld) [Volume fraction] 39.4 % Low 41-50 [facility] Comment on above: Performed By: #### E JOHN #### [address] [address] Hemoglobin (Bld) [Mass/Vol] 13.4 g/dL Low 13.5-16.5 [facility] Comment on above: Performed By: #### E JOHN #### [facility] [address] [address] Lymphocytes (Bld) [#/Vol] 0.99 10*3/uL Low 1.2-3.2 [facility] Comment on above: Performed By: #### E JOHN #### [facility] [address] [address] Lymphocytes/100 WBC (Bld) 29.50 % Normal 20-40 [facility] Comment on above: Performed By: #### E JOHN #### [facility] [place] [address] [place] [address] MCH (RBC) [Entitic mass] 29.5 pg Normal 26-34 [facility] Comment on above: Performed By: #### E JOHN #### [facility] [place] [address] [place] [address] MCHC 34.0 % Normal 31-37 [facility] Comment on above: Performed By: #### E JOHN #### [facility] [place] [address] [place] [address] MCV (RBC) [Entitic vol] 86.8 fL Normal 80-100 [facility] Comment on above: Performed By: #### E JOHN #### [place] [address] [place] [address] MEAN PLT VOL 11.1 CU Normal 7.0-12.6 [facility] Comment on above: Performed By: #### E JOHN #### [place] [address] [place] [address] Monocytes (Bld) [#/Vol] 0.26 10*3/uL Normal 0-0.8 [facility] Comment on above: Performed By: #### E JOHN #### [address] [address] Monocytes/100 WBC (Bld) 7.70 % Normal 0-8 [facility] Comment on above: Performed By: #### E JOHN #### [place] [address] [place] [address] Neutrophils/100 WBC (Bld) 0.30 % Normal 0.0-1.0 [facility] Comment on above: Performed By: #### E JOHN #### [facility] [place] [address] [place] [address] Neutrophils/100 WBC (Bld) 59.50 % Normal 50-70 [facility] Comment on above: Performed By: #### E JOHN #### [facility] [address] [address] NRBC'S 0 /100 WBC Normal 0 [facility] Comment on above: Performed By: #### E JOHN #### [facility] [place] [address] [place] [address] Platelets (Bld) [#/Vol] 133 10*3/uL Low 150-450 [facility] Comment on above: Result Comment: SAMP LE INTEGRITY CHECKED CONSISTENT WITH PERIPHERAL SMEAR RESULT CHECKED Performed By: #### E JOHN #### [address] [address] RBC (Bld) [#/Vol] 4.54 10*6/uL Normal 4.5-5.5 [facility] Comment on above: Performed By: #### E JOHN #### [address] [address] RDW-SD 39.0 FL Normal 37.0-54.0 [facility] Comment on above: Performed By: #### E JOHN #### [address] [address] WBC (Bld) [#/Vol] 3.2 10*3/uL Low 4.5-11.0 [facility] Comment on above: Performed By: #### E JOHN #### [address] [address] CHEST 2 VIEWon 05-11-2023 CHEST 2 VIEW *FINAL Date of Service: 05/11/2023 15:46 Adm #: [id number] Reading Dr:TARAN PINA Signoff Dr: TARAN PINA PROCEDURE: CHEST 2 VIEW - WXR 0020 REASON FOR EXAM: Palpitations RESULT: Patient Name: HOSEA ALVAREZ STUDY: CHEST 2 VIEW 05/11/2023 3:46 pm INDICATION: Palpitations COMPARISON: 01/29/2023 ACCESSION NUMBER(S): [id number] ORDERING CLINICIAN: THALIA ROBERTO TECHNIQUE: Two views chest FINDINGS: Cardiomediastinal silhouette is mildly enlarged. Aorta is tortuous. No infiltrate or effusion identified. Mild multilevel anterior osteophyte formation midthoracic spine. No compression deformity demonstrated. IMPRESSION: No acute cardiopulmonary process. Dictation workstation: [id number] Original Interpreting Physician: TARAN PINA MD Original Transcribed by/Date: MMODAL May 11 2023 3:18P Original Electronically Signed by/Date: TARAN PINA MD May 11 2023 3:59P Addendum Interpreting Physician: Addendum Transcribed by/Date: NO ADDENDUM Addendum Electronically Signed by/Date: Normal [facility] COMPREHENSIVE METABOLIC PANE Bart 05-11-2023 Albumin [Mass/Vol] 4.1 g/dL Normal 3.5-5.0 [facility] Comment on above: Performed By: #### E JOHN #### [address] [address] Albumin/Globulin [Mass ratio] 1.5 {ratio} Normal 1.5-3.0 [facility] Comment on above: Performed By: #### E JOHN #### [facility] [address] [address] ALP [Catalytic activity/Vol] 63 U/L Normal 35-125 [facility] Comment on above: Performed By: #### E JOHN #### [facility] [address] [address] ALT [Catalytic activity/Vol] 24 U/L Normal 5-40 [facility] Comment on above: Performed By: #### E JOHN #### [facility] [address] [address] Anion gap [Moles/Vol] 8 mmol/L Normal 0-19 [facility] Comment on above: Performed By: #### E JOHN #### [facility] [address] [address] AST [Catalytic activity/Vol] 17 U/L Normal 5-40 [facility] Comment on above: Performed By: #### E JOHN #### [facility] [address] [address] Bilirubin [Mass/Vol] 0.3 mg/dL Normal 0.1-1.2 [facility] Comment on above: Performed By: #### E JOHN #### [facility] [place] [address] [place] [address] Calcium [Mass/Vol] 9.2 mg/dL Normal 8.5-10.4 [facility] Comment on above: Performed By: #### E JOHN #### [facility] [place] [address] [place] [address] Chloride [Moles/Vol] 105 mmol/L Normal 97-107 [facility] Comment on above: Performed By: #### E JOHN #### [facility] [place] [address] [place] [address] CO2 [Moles/Vol] 27 mmol/L Normal 24-31 [facility] Comment on above: Performed By: #### E JOHN #### [place] [address] [place] [address] Creatinine [Mass/Vol] 1.2 mg/dL Normal 0.4-1.6 [facility] Comment on above: Performed By: #### E JOHN #### [place] [address] [place] [address] ESTIMATED GFR 73 mL/min/1.73 m2 Normal [facility] Comment on above: Result Comment: CALCULATIONS OF ESTIMATED GFR ARE PERFORMED USING THE 2020 CKD-EPI STUDY REFIT EQUATION WITHOUT THE RACE VARIABLE FOR THE IDMS-TRACEABLE CREATININE METHODS. https://jasn.asnjournals.org/content//ASN.771440 8973 Performed at [address] [place] [address] Performed By: #### E JOHN #### [place] [address] [place] [address] Globulin (S) [Mass/Vol] 2.7 g/dL Normal 1.9-3.7 [facility] Comment on above: Performed By: #### E JOHN #### [facility] [place] [address] [place] [address] Glucose [Mass/Vol] 86 mg/dL Normal 65-99 [facility] Comment on above: Performed By: #### E JOHN #### [facility] [place] [address] [place] [address] Potassium [Moles/Vol] 3.8 mmol/L Normal 3.4-5.1 [facility] Comment on above: Performed By: #### E JOHN #### Main Laboratory [facility] [id number] [place] [address] Protein [Mass/Vol] 6.8 g/dL Normal 5.9-7.9 [facility] Comment on above: Performed By: #### E JOHN #### Main Laboratory [facility] [id number] [place] [address] Sodium [Moles/Vol] 140 mmol/L Normal 133-145 [facility] Comment on above: Performed By: #### E JOHN #### [facility] [address] [address] Urea nitrogen [Mass/Vol] 17 mg/dL Normal 8-25 [facility] Comment on above: Performed By: #### E JOHN #### Main Laboratory [address] [address] Urea nitrogen/Creatinine [Mass ratio] 14.2 mg/mg Normal 8-21 [facility] Comment on above: Performed By: #### E JOHN #### [facility] [address] [address] Comprehensive metabolic 2000 panelon 05-11-2023 Albumin [Mass/Vol] 4.1 g/dL [facility] Albumin/Globulin [Mass ratio] 1.5 {ratio} [facility] ALP (Bld) [Catalytic activity/Vol] 63 U/L 35 - 125 U/L [facility] ALT [Catalytic activity/Vol] 24 U/L 5 - 40 U/L [facility] Anion gap [Moles/Vol] 8 mmol/L [facility] AST [Catalytic activity/Vol] 17 U/L 5 - 40 U/L [facility] Bilirubin [Mass/Vol] 0.3 mg/dL [facility] Calcium [Mass/Vol] 9.2 mg/dL [facility] Chloride [Moles/Vol] 105 mmol/L [facility] CO2 [Moles/Vol] 27 mmol/L [facility] Creatinine [Mass/Vol] 1.2 mg/dL [facility] GFR/1.73 sq M.predicted MDRD (S/P/Bld) [Vol rate/Area] 73 mL/min/{1.73_m2} mL/min/1.73 m2 [facility] Comment on above: CALCULATIONS OF NIKOLE MATED GFR ARE PERFORMED USING THE 2020 CKD-EPI STUDY REFIT EQUATION WITHOUT THE RACE VARIABLE FOR THE IDMS-TRACEABLE CREATININE METHODS. https://jasn.asnjournals.org/content/early/ASN.338015 5079 Performed at [place] [address] [place] [id number] Globulin (S) [Mass/Vol] 2.7 g/dL [facility] Glucose [Mass/Vol] 86 mg/dL [facility] Potassium [Moles/Vol] 3.8 mmol/L [facility] Protein [Mass/Vol] 6.8 g/dL [facility] Sodium [Moles/Vol] 140 mmol/L [facility] Urea nitrogen [Mass/Vol] 17 mg/dL [facility] Urea nitrogen/Creatinine [Mass ratio] 14.2 mg/mg [facility] D-DIMERon 05-11-2023 D-DIMER 0.28 MG/L FEU Normal 0.19-0.50 [facility] Comment on above: Result Comment: THROMBOEMBOLIC EVENTS CANNOT BE EXCLUDED SOLELY ON THE BASIS OF THE D-DIMER LEVEL BEING WITHIN THE NORMAL REFERENCE RANGE. D-DIMER LEVELS LESS THAN 0.5 MG/L FEU IN CONJUNCTION WITH A LOW CLINICAL PROBABILITY HAVE AN EXCELLENT NEGATIVE PREDICTIVE VALUE IN EXCLUDING A DIAGNOSIS OF PULMONARY EMBOLUS (PE) OR DEEP VEIN THROMBOSIS (DVT). ELEVATED D-DIMER LEVELS ARE NOT SPECIFIC TO PE OR DVT, AND MAY BE SEEN IN PATIENTS WITH DIC, ADVANCED AGE, , MALIGNANCY, LIVER DISEASE, INFECTION, AND INFLAMMATORY CONDITIONS AMONG OTHERS. D-DIMER LEVELS MAY BE DECREASED IN PATIENTS RECEIVING ANTI-COAGULATION THERAPY. Performed at [place] [address] [address] [facility] [address] Performed By: #### U ACUL #### Main Laboratory [address] [address] D-Dimer, VTE Exclusionon Fibrin D-dimer FEU (PPP) [Mass/Vol] 0.28 [facility] Comment on above: THROMBOEMBOLIC EVENT S CANNOT BE EXCLUDED SOLELY ON THE BASIS OF THE D-DIMER LEVEL BEING WITHIN THE NORMAL REFERENCE RANGE. D-DIMER LEVELS LESS THAN 0.5 MG/L FEU IN CONJUNCTION WITH A LOW CLINICAL PROBABILITY HAVE AN EXCELLENT NEGATIVE PREDICTIVE VALUE IN EXCLUDING A DIAGNOSIS OF PULMONARY EMBOLUS (PE) OR DEEP VEIN THROMBOSIS (DVT). ELEVATED D-DIMER LEVELS ARE NOT SPECIFIC TO PE OR DVT, AND MAY BE SEEN IN PATIENTS WITH DIC, ADVANCED AGE, , MALIGNANCY, LIVER DISEASE, INFECTION, AND INFLAMMATORY CONDITIONS AMONG OTHERS. D-DIMER LEVELS MAY BE DECREASED IN PATIENTS RECEIVING ANTI-COAGULATION THERAPY. Performed at [address] [address] DRUG SCREEN,URINEon 05-11-20 Amphetamines Screen method >1000 ng/mL Ql (U) Negative [facility] Barbiturates Screen method >300 ng/mL Ql (U) Negative [facility] Benzodiazepines Screen method >300 ng/mL Ql (U) Negative [facility] Benzoylecgonine Screen method >300 ng/mL Ql (U) Negative [facility] Cannabinoids Screen method >50 ng/mL Ql (U) Negative [facility] Drug screen comment (U) [Interp] These Toxicological Screening Tests provide unconfirmed qualitative measurements to aid in treatment and diagnosis in cases of drug use or overdose. This test is used only for medical purposes. A positive result does not indicate or measure intoxication. For specific test performance or pathologist consultation, please contact the Laboratory. The following threshold concentrations are used for these analyses. Values at or above the threshold concentration are reported as Positive. Values below the threshold are reported as negative. Drug Screening Threshold THC/CANNABINOIDS 50 ng/ml METHADONE 300 ng/ml COCAINE METABOLITES 300 ng/ml BENZODIAZEPINE 300 ng/ml PCP 25 ng/ml OPIATE 300 ng/ml AMPHETAMINE/ECSTASY 1000 ng/ml BARBITURATE 200 ng/ml OXYCODONE 100 ng/ml FENTANYL 5 ng/ml [facility] fentaNYL+Norfentanyl Screen Ql (U) NEGATIVE Performed at [address] Methadone Ql (U) Negative [facility] Opiates Screen method >300 ng/mL Ql (U) Negative [facility] oxyCODONE Ql (U) Negative [facility] Phencyclidine Screen method >25 ng/mL Ql (U) Negative [facility] EKGon 05-11-2023 Electrocardiogram EKG Ventricular Rate : 67 BPM Atrial Rate : 67 BPM P-R Interval : 190 ms QRS Duration : 100 ms Q-T Interval : 364 ms QTC Calculation(Bazett) : 384 ms Calculated P [place] : 36 degrees Calculated R [place] : -4 degrees Calculated T [place] : 14 degrees Diagnosis:Normal sinus rhythm Normal ECG When compared with ECG of 22-JAN-2023 18:34, No significant change was found Confirmed by CHERYL CULLEN ([id number]) on 05/14/2023 3:44:16 PM Normal [facility] Fibrin D-dimer FEU (PPP) [Ma ss/Vol]on 05-11-2023 [facility] HS TROPONIN Ton 05-11-2023 HS TROPONIN T DELTA 1 Normal 0-4 [facility] Comment on above: Result Comment: Perf ormed at [place] [address] Performed By: #### H STROP #### [place] [address] HS TROPONIN T,GEN 5 7 NG/L Normal <15 [facility] Comment on above: Result Comment: Sex Specific Reference Range: Male (0-22), Female (0-14) Change(Delta) >=5 is significant Troponin Baseline and Serial elevation for significant change(delta)should be interpreted in conjunction with clinical presentation, history, signs and symptoms, ECG and biomarker concentrations. Troponin elevation can be seen in several other non-infarct conditions. Chronic troponin elevations can be detected in clinically stable patients with heart failure, cardiomyopathy, renal failure, diabetes, etc. Elevated troponin can also occur in myocarditis, heart contusion, PE, drug induced cardiotoxicity, etc. Samples should NOT be taken from patients receiving high dose biotin (> 5mg) doses until 8 hours following last biotin administration. Performed By: #### H STRO #### [address] [address] HS TROPONIN T DELTA Normal 0-4 [facility] Comment on above: Result Comment: No p revious result Performed at [address] [address] Performed By: #### E JOHN #### [address] [address] HS TROPONIN T,GEN 5 8 NG/L Normal <15 [facility] Comment on above: Result Comment: Sex Specific Reference Range: Male (0-22), Female (0-14) Change(Delta) >=5 is significant Troponin Baseline and Serial elevation for significant change(delta)should be interpreted in conjunction with clinical presentation, history, signs and symptoms, ECG and biomarker concentrations. Troponin elevation can be seen in several other non-infarct conditions. Chronic troponin elevations can be detected in clinically stable patients with heart failure, cardiomyopathy, renal failure, diabetes, etc. Elevated troponin can also occur in myocarditis, heart contusion, PE, drug induced cardiotoxicity, etc. Samples should NOT be taken from patients receiving high dose biotin (> 5mg) doses until 8 hours following last biotin administration. Performed By: #### E JOHN #### [address] [address] Hs Troponin Ton 05-11-2023 Hs Troponin T Delta 1 0 - 4 [facility] Comment on above: Performed at [address] [address] Troponin T.cardiac [Mass/Vol] 7 ug/L [facility] Comment on above: Sex Specific Referen ce Range: Male (0-22), Female (0-14) Change(Delta) >=5 is significant Troponin Baseline and Serial elevation for significant change(delta)should be interpreted in conjunction with clinical presentation, history, signs and symptoms, ECG and biomarker concentrations. Troponin elevation can be seen in several other non-infarct conditions. Chronic troponin elevations can be detected in clinically stable patients with heart failure, cardiomyopathy, renal failure, diabetes, etc. Elevated troponin can also occur in myocarditis, heart contusion, PE, drug induced cardiotoxicity, etc. Samples should NOT be taken from patients receiving high dose biotin (> 5mg) doses until 8 hours following last biotin administration. [facility] Hs Troponin T Delta No previous result 0 - 4 [facility] Comment on above: Performed at [place] [address] Troponin T.cardiac [Mass/Vol] 8 ug/L NINF [facility] Comment on above: Sex Specific Referen ce Range: Male (0-22), Female (0-14) Change(Delta) >=5 is significant Troponin Baseline and Serial elevation for significant change(delta)should be interpreted in conjunction with clinical presentation, history, signs and symptoms, ECG and biomarker concentrations. Troponin elevation can be seen in several other non-infarct conditions. Chronic troponin elevations can be detected in clinically stable patients with heart failure, cardiomyopathy, renal failure, diabetes, etc. Elevated troponin can also occur in myocarditis, heart contusion, PE, drug induced cardiotoxicity, etc. Samples should NOT be taken from patients receiving high dose biotin (> 5mg) doses until 8 hours following last biotin administration. [facility] LIPASE PSon 05-11-2023 LIPASE PS 29 U/L Normal 16-63 [facility] Comment on above: Result Comment: Perf ormed at [place] [address] Performed By: #### L IPS #### [place] [address] Laboratoryon 05-11-2023 Drug screen comment (U) [Interp] Urine Drug Comment These Toxicological Screening Tests provide unconfirmed qualitative measurements to aid in treatment and diagnosis in cases of drug use or overdose. This test is used only for medical purposes. A positive result does not indicate or measure intoxication. For specific test performance or pathologist consultation, please contact the Laboratory. The following threshold concentrations are used for these analyses. Values at or above the threshold concentration are reported as Positive. Values below the threshold are reported as negative. Drug Screening Threshold THC/CANNABINOIDS 50 ng/ml METHADONE 300 ng/ml COCAINE METABOLITES 300 ng/ml BENZODIAZEPINE 300 ng/ml PCP 25 ng/ml OPIATE 300 ng/ml AMPHETAMINE/ECSTASY 1000 ng/ml BARBITURATE 200 ng/ml OXYCODONE 100 ng/ml FENTANYL 5 ng/ml (Reference Range: not available) [facility] Laboratory - Chemistry and C hemistry - challengeon 05-11-2023 Troponin T.cardiac [Mass/Vol] HS Troponin T,Gen 5 7 NG/L (-<15 NG/L) Sex Specific Reference Range: Male (0-22), Female (0-14) Change(Delta) >=5 is significant Troponin Baseline and Serial elevation for significant change(delta)should be interpreted in conjunction with clinical presentation, history, signs and symptoms, ECG and biomarker concentrations. Troponin elevation can be seen in several other non-infarct conditions. Chronic troponin elevations can be detected in clinically stable patients with heart failure, cardiomyopathy, renal failure, diabetes, etc. Elevated troponin can also occur in myocarditis, heart contusion, PE, drug induced cardiotoxicity, etc. Samples should NOT be taken from patients receiving high dose biotin (> 5mg) doses until 8 hours following last biotin administration. [facility] [place] Bilirubin Ql (U) Bili NEGATIVE (NEG ) [facility] (U) Urine pH 5.5 (4.6-8.0 ) 4.6 - 8.0 L [facility] Specific gravity (U) [Rel density] Urine Sp [place] 1.020 (1.005-1.030 ) 1.005 - 1.030 [facility] Urobilinogen Ql (U) Uro NORMAL MG/DL (0- 1.0 MG/DL) 0 - 1.0 MG/DL [facility] Albumin [Mass/Vol] Albumin 4.1 GM/DL (3.5-5.0 GM/DL) 3.5 - 5.0 GM/DL [facility] Albumin/Globulin [Mass ratio] Albumin Globulin Ratio 1.5 RATIO (1.5-3.0 RATIO) 1.5 - 3.0 RATIO [facility] ALP (Bld) [Catalytic activity/Vol] Alk Phosphatase 63 U/L (35-125 U/L) 35 - 125 U/L [facility] ALT [Catalytic activity/Vol] ALT 24 U/L (5-40 U/L) 5 - 40 U/L [facility] [place] Anion gap [Moles/Vol] Anion Gap 8 MMOL/L (0-19 MMOL/L) 0 - 19 MMOL/L [facility] [place] AST [Catalytic activity/Vol] AST 17 U/L (5-40 U/L) 5 - 40 U/L [facility] [place] Bilirubin [Mass/Vol] Total Bilirubin 0.3 MG/DL (0.1-1.2 MG/DL) 0.1 - 1.2 MG/DL [facility] [place] Calcium [Mass/Vol] Calcium 9.2 MG/DL (8.5-10.4 MG/DL) 8.5 - 10.4 MG/DL [facility] [place] Chloride [Moles/Vol] Chloride 105 MMOL/L (97-107 MMOL/L) 97 - 107 MMOL/L [facility] [place] CO2 [Moles/Vol] Carbon Dioxide 27 MM OL/L (24-31 MMOL/L) 24 - 31 MMOL/L [facility] [place] Creatinine [Mass/Vol] Creatinine R 1.2 M G/DL (0.4-1.6 MG/DL) 0.4 - 1.6 MG/DL [facility] [place] GFR/1.73 sq M.predicted MDRD (S/P/Bld) [Vol rate/Area] EGFR 73 mL/min/1.73 m2 (Reference Range: not available) CALCULATIONS OF ESTIMATED GFR ARE PERFORMED USING THE 2020 CKD-EPI STUDY REFIT EQUATION WITHOUT THE RACE VARIABLE FOR THE IDMS-TRACEABLE CREATININE METHODS. https://jasn.asnjournals .org/content/06/14/ASN.0628237169 Performed at [address] [address] [facility] [place] Globulin (S) [Mass/Vol] Globulin 2.7 G/DL (1.9-3.7 G/DL) 1.9 - 3.7 G/DL [facility] [place] Glucose [Mass/Vol] Glucose 86 MG/DL (65 -99 MG/DL) 65 - 99 MG/DL [facility] [place] [facility] Lipase [Catalytic activity/Vol] Lipase 29 U/L (16-63 U/L) Performed at [address] [address] 16 - 63 U/L [facility] [place] Magnesium [Mass/Vol] Magnesium 1.9 MG/DL (1.6-3.1 MG/DL) Performed at [place] [address] 1.6 - 3.1 MG/DL [facility] [place] Natriuretic peptide.B prohormone N-Terminal [Mass/Vol] Pro BNP 36 PG/ML (0-138 PG/ML) LESS THAN RESULT CHECKED Reference ranges are based on clinical submission data. These ranges represent the 95th percentile of normal cut-off points. As NT pro-BNP values approach 1000 pg/ml, clinical symptoms are more likely associated with CHF. Performed at [place] [address] 0 - 138 PG/ML [facility] [place] Potassium [Moles/Vol] Potassium R 3.8 MM OL/L (3.4-5.1 MMOL/L) 3.4 - 5.1 MMOL/L [facility] [place] [place] Protein [Mass/Vol] Total Protein 6.8 G/ DL (5.9-7.9 G/DL) 5.9 - 7.9 G/DL [facility] [place] Sodium [Moles/Vol] Sodium 140 MMOL/L (133-145 MMOL/L) 133 - 145 MMOL/L [facility] [place] Troponin T.cardiac [Mass/Vol] HS Troponin T,Gen 5 8 NG/L (-<15 NG/L) Sex Specific Reference Range: Male (0-22), Female (0-14) Change(Delta) >=5 is significant Troponin Baseline and Serial elevation for significant change(delta)should be interpreted in conjunction with clinical presentation, history, signs and symptoms, ECG and biomarker concentrations. Troponin elevation can be seen in several other non-infarct conditions. Chronic troponin elevations can be detected in clinically stable patients with heart failure, cardiomyopathy, renal failure, diabetes, etc. Elevated troponin can also occur in myocarditis, heart contusion, PE, drug induced cardiotoxicity, etc. Samples should NOT be taken from patients receiving high dose biotin (> 5mg) doses until 8 hours following last biotin administration. [facility] [place] TSH Qn TSH 0.87 MIU/L (0.27-4.20 MIU/L) Performed at [place] [address] 0.27 - 4.20 MIU/L [facility] Urea nitrogen [Mass/Vol] BUN 17 MG/DL (8-25 MG/DL) 8 - 25 MG/DL [facility] Urea nitrogen/Creatinine [Mass ratio] BUN Creatinine Ratio 14.2 RATIO (8-21 RATIO) 8 - 21 RATIO [facility] Laboratory - Coagulationon 0 05-11-2023 Fibrin D-dimer FEU (PPP) [Mass/Vol] D Dimer 0.28 MG/L FEU (0.19-0.50 MG/L FEU) THROMBOEMBOLIC EVENTS CANNOT BE EXCLUDED SOLELY ON THE BASIS OF THE D-DIMER LEVEL BEING WITHIN THE NORMAL REFERENCE RANGE. D-DIMER LEVELS LESS THAN 0.5 MG/L FEU IN CONJUNCTION WITH A LOW CLINICAL PROBABILITY HAVE AN EXCELLENT NEGATIVE PREDICTIVE VALUE IN EXCLUDING A DIAGNOSIS OF PULMONARY EMBOLUS (PE) OR DEEP VEIN THROMBOSIS (DVT). ELEVATED D-DIMER LEVELS ARE NOT SPECIFIC TO PE OR DVT, AND MAY BE SEEN IN PATIENTS WITH DIC, ADVANCED AGE, , MALIGNANCY, LIVER DISEASE, INFECTION, AND INFLAMMATORY CONDITIONS AMONG OTHERS. D-DIMER LEVELS MAY BE DECREASED IN PATIENTS RECEIVING ANTI-COAGULATION THERAPY. Performed at [place] [id number] 0.19 - 0.50 MG/L FEU [facility] Laboratory - Drug toxicology on 05-11-2023 Amphetamines Screen method >1000 ng/mL Ql (U) Urine Amphetamine NEGATIVE (Reference Range: not available) [facility] Barbiturates Screen method >300 ng/mL Ql (U) Urine Barbiturate NEGATIVE (Reference Range: not available) [facility] Benzodiazepines Screen method >300 ng/mL Ql (U) Urine Benzodiazepine NEGATIVE (Reference Range: not available) [facility] Benzoylecgonine Screen method >300 ng/mL Ql (U) Urine Cocaine Metabolites NEGATIVE (Reference Range: not available) [facility] Cannabinoids Screen method >50 ng/mL Ql (U) THC/Cannabinoids NEGATIVE (Reference Range: not available) [facility] fentaNYL+Norfentanyl Screen Ql (U) Urine Fentanyl NEGATIVE Performed at [address] [address] (Reference Range: not available) [facility] Methadone Ql (U) Urine Methadone NEGA TIVE (Reference Range: not available) [facility] [place] Opiates Screen method >300 ng/mL Ql (U) Urine Opiate NEGATIVE (Reference Range: not available) [facility] oxy[facility] Ql (U) Urine Oxycodone NEGA TIVE (Reference Range: not available) [facility] Phencyclidine Screen method >25 ng/mL Ql (U) Urine PCP NEGATIVE (Reference Range: not available) [facility] Ethanol [Mass/Vol] Alcohol <0.010 Performed at [address] [address] GM/DL (0-0.010 GM/DL) 0 - 0.010 GM/DL [facility] - Hematology and Cell countson 05-11-2023 Hemoglobin Ql (U) Blood NEGATIVE (NEG ) [facility] Basophils (Bld) [#/Vol] Abs Baso 0.01 K/UL (0.00-0.22 K/UL) 0.00 - 0.22 K/UL [facility] Basophils/100 WBC (Bld) Basophil 0.30 % (0-1 %) 0 - 1 % [facility] Differential cell count method Nom (Bld) Diff Type AUTO DIFF (Reference Range: not available) [facility] Eosinophils (Bld) [#/Vol] Abs Eos 0.09 K/UL (0-0.45 K/UL) 0 - 0.45 K/UL [facility] Eosinophils/100 WBC (Bld) Eosinophil 2.70 % (0-3 %) 0 - 3 % [facility] Erythrocyte distribution width (RBC) [Entitic vol] RDW SD 39.0 FL (37.0-54.0 FL) 37.0 - 54.0 FL [facility] Erythrocyte distribution width (RBC) [Ratio] RDW CV 12.5 % (11.7-15.0 %) 11.7 - 15.0 % [facility] Hematocrit (Bld) [Volume fraction] HCT 39.4 % L (41-50 %) Low 41 - 50 % [facility] Hemoglobin (Bld) [Mass/Vol] HGB 13.4 GM/DL L (13.5-16.5 GM/DL) Low 13.5 - 16.5 GM/DL [facility] Immature granulocytes (Bld) [#/Vol] Abs Imm Neut 0.01 K/UL (0.0-0.1 K/UL) 0.0 - 0.1 K/UL [facility] [place] [place] Lymphocytes (Bld) [#/Vol] Abs Lymph 0.99 K/UL L (1.2-3.2 K/UL) Low 1.2 - 3.2 K/UL [facility] [place] Lymphocytes/100 WBC (Bld) Lymphocyte 29.50 % (20-40 %) 20 - 40 % [facility] [place] MCH (RBC) [Entitic mass] MCH 29.5 PG (26-34 PG) 26 - 34 PG [facility] [place] MCHC (RBC) [Mass/Vol] MCHC 34.0 % (31-37 %) 31 - 37 % [facility] [place] MCV (RBC) [Entitic vol] MCV 86.8 FL (80-100 FL) 80 - 100 FL [facility] [place] Monocytes (Bld) [#/Vol] Abs Gage 0.26 K/UL (0-0.8 K/UL) 0 - 0.8 K/UL [facility] [place] Monocytes/100 WBC (Bld) Monocyte 7.70 % (0-8 %) 0 - 8 % [facility] [place] Neutrophils (Bld) [#/Vol] Abs.Neut.Calculated 2.00 K/UL (Reference Range: not available) Performed at [address] [address] [facility] [place] Neutrophils (Bld) [#/Vol] Abs Neut 2.00 K/UL (1.8-7.7 K/UL) 1.8 - 7.7 K/UL [facility] [place] Neutrophils.immature/ 100 WBC (Bld) Immature Neut % 0.30 % (0.0-1.0 %) 0.0 - 1.0 % [facility] [place] Nucleated RBC/100 WBC (Bld) [Ratio] NRBCs 0 /100 WBC (0 /100 WBC) [facility] [place] Platelet mean volume (Bld) [Entitic vol] MPV 11.1 CU (7.0-12.6 CU) 7.0 - 12.6 CU [facility] [place] Platelets (Bld) [#/Vol] PLT 133 K/UL L (150-450 K/UL) SAMPLE INTEGRITY CHECKED CONSISTENT WITH PERIPHERAL SMEAR RESULT CHECKED Low 150 - 450 K/UL [facility] [place] [facility] RBC (Bld) [#/Vol] RBC 4.54 M/UL (4.5-5 .5 M/UL) 4.5 - 5.5 M/UL [facility] Segmented neutrophils/100 WBC (Bld) Granulocyte 59.50 % (50-70 %) 50 - 70 % [facility] WBC (Bld) [#/Vol] WBC 3.2 K/UL L (4.5- 11.0 K/UL) Low 4.5 - 11.0 K/UL [facility] Laboratory - Specimen inform ationon 05-11-2023 Clarity (U) Urine Clarity CLEAR (Reference Range: not available) [facility] [place] Color (U) Urin color PALE YELL OW (Reference Range: not available) [facility] - Urinalysison Bacteria Auto Ql (U) Bacteria NEGATIVE (Reference Range: not available) [facility] Epithelial cells.squamous Auto Ql (U) Urine squamous epi NONE SEEN /HPF (Reference Range: not available) [facility] Glucose Auto test strip (U) [Mass/Vol] Gluc NEGATIVE mg/dL (NEG mg/dL) [facility] Hemoglobin Auto test strip Ql (U) RBC NONE SEEN /HPF (0-3 /HPF) 0 - 3 /HPF [facility] Hyaline casts Auto Ql (U) Urine hyaline cast NONE SEEN /LPF (Reference Range: not available) [facility] Ketones Auto test strip Ql (U) Urine Ketone NEGATIVE (NEG ) [facility] Leukocyte esterase Auto test strip Ql (U) Leuk SMALL A (NEG ) Abnormal [facility] Nitrite Auto test strip Ql (U) Nit NEGATIVE (NEG ) [facility] Protein (U) [Mass/Vol] Prot NEGATIVE mg/dL (NEG mg/dL) [facility] WBC Auto (Urine sed) [#/Area] WBC 3 /HPF (0-3 /HPF) 0 - 3 /HPF [facility] Lipaseon 05-11-2023 Lipase [Catalytic activity/Vol] 29 U/L 16 - 63 U/L [facility] Comment on above: Performed at [facility] [address] [facility] [address] MAGNESIUMon 05-11-2023 Magnesium [Mass/Vol] 1.9 mg/dL Normal 1.6-3.1 [facility] Comment on above: Result Comment: Perf ormed at [address] [address] Performed By: #### M G #### Main Laboratory [address] [address] Magnesiumon 05-11-2023 Magnesium [Mass/Vol] 1.9 mg/dL [facility] Comment on above: Performed at [address] [address] Natriuretic peptide.B prohor fabby N-Terminal [Mass/Vol]on 05-11-2023 [facility] No Panel Informationon 05-11 HS Troponin T Delta 1 (0-4 ) Performed at [place] [address] 0 - 4 [facility] XR Chest 2 Views (PA and lat) (Reference Range: not available) *FINAL Date of Service: 05/11/2023 15:46 Adm #: [id number] Reading Dr:TARAN PINA Signoff Dr: TARAN PINA PROCEDURE: CHEST 2 VIEW - WXR 0020 REASON FOR EXAM: Palpitations RESULT: Patient Name: HOSEA ALVAREZ STUDY: CHEST 2 VIEW 05/11/2023 3:46 pm INDICATION: Palpitations COMPARISON: 01/29/2023 ACCESSION NUMBER(S): [id number] ORDERING CLINICIAN: THALIA ROBERTO TECHNIQUE: Two views chest FINDINGS: Cardiomediastinal silhouette is mildly enlarged. Aorta is tortuous. No infiltrate or effusion identified. Mild multilevel anterior osteophyte formation midthoracic spine. No compression deformity demonstrated. IMPRESSION: No acute cardiopulmonary process. Dictation workstation: [id number] Original Interpreting Physician: TARAN PINA MD Original Transcribed by/Date: [place] May 11 2023 3:18P Original Electronically Signed by/Date: TARAN PINA MD May 11 2023 3:59P Addendum Interpreting Physician: Addendum Transcribed by/Date: NO ADDENDUM Addendum Electronically Signed by/Date: [facility] [place] Microscopic AUTOMATI C MICROSCOPIC URINES (Reference Range: not available) [facility] Reflex to Urine Cult ure CULTURE BEING ORDERED BASED ON LEUKOCYTE ESTERASE Performed at [place] [address] (Reference Range: not available) [facility] HS Troponin T Delta No previous result Performed at [place] [address] (0-4 ) 0 - 4 [facility] PRO-BNPon 05-11-2023 Natriuretic peptide B (Bld) [Mass/Vol] 36 pg/mL Normal 0-138 [facility] Comment on above: Result Comment: LESS THAN RESULT CHECKED Reference ranges are based on clinical submission data. These ranges represent the 95th percentile of normal cut-off points. As NT pro-BNP values approach 1000 pg/ml, clinical symptoms are more likely associated with CHF. Performed at [place] [address] Performed By: #### P BNP #### [place] [address] TSHon 05-11-2023 TSH 0.87 MIU/L Normal 0.27-4.20 [facility] Comment on above: Result Comment: Perf ormed at [place] [address] Performed By: #### E JOHN #### [place] [address] TSH with reflex to Free T4 i f abnormalon 05-11-2023 TSH Qn 0.87 m[IU]/L [facility] Comment on above: Performed at [address] UA-REFLEX TO CULTUREon 05-11 BACT Negative Normal [facility] Comment on above: Performed By: #### U ACUL #### [place] [address] RBC NONE SEEN Normal 0-3 [facility] Comment on above: Performed By: #### U ACUL #### [place] [address] Urinalysis dipstick W Reflex Microscopic panel (U) AUTOMATIC MICROSCOPIC URINES Normal [facility] Comment on above: Performed By: #### U ACUL #### [facility] [place] [address] [place] [address] URINE HYALINE CAST NONE SEEN [facility] Comment on above: Performed By: #### U ACUL #### [facility] [address] [place] [address] URINE SQUAMOUS EPI NONE SEEN Normal [facility] Comment on above: Performed By: #### U ACUL #### [facility] [place] [address] [address] [place] [address] WBC 3 /HPF Normal 0-3 [facility] Comment on above: Performed By: #### U ACUL #### [facility] [place] [address] [place] [place] [address] Bacteria identified Cx Nom (U) [facility] Comment on above: Result Comment: CULT URE BEING ORDERED BASED ON LEUKOCYTE ESTERASE Performed at [address] [place] [address] Performed By: #### U ACUL #### [place] [address] [place] [address] BILI Negative Normal [facility] Comment on above: Performed By: #### U ACUL #### [place] [address] [place] [address] Clarity (U) CLEAR [facility] Comment on above: Performed By: #### U ACUL #### [place] [address] [place] [address] Color (U) PALE YELLOW [facility] Comment on above: Performed By: #### U ACUL #### [facility] [place] [address] [address] [place] [address] GLUC Negative Normal [facility] Comment on above: Performed By: #### U ACUL #### [facility] [address] [place] [address] Hemoglobin Ql (U) Negative Normal NEG [facility] Comment on above: Performed By: #### U ACUL #### [facility] [address] [address] [place] [address] KET Negative Normal NEG [facility] Comment on above: Performed By: #### U ACUL #### [facility] [place] [address] [place] [address] LEUK SMALL Abnormal NEG [facility] Comment on above: Performed By: #### U ACUL #### [facility] [address] [place] [address] NIT Negative Normal NEG [facility] Comment on above: Performed By: #### U ACUL #### [facility] [address] [place] [address] pH (U) 5.5 [pH] Normal 4.6-8.0 [facility] Comment on above: Performed By: #### U ACUL #### [facility] [address] [place] [address] PROT Negative Normal [facility] Comment on above: Performed By: #### U ACUL #### [facility] [address] [place] [address] SP GRAV,URINE 1.020 Normal 1.005-1.030 [facility] Comment on above: Performed By: #### U ACUL #### [facility] [address] [place] [address] URO NORMAL Normal 0-1.0 [facility] Comment on above: Performed By: #### U ACUL #### [facility] [address] [place] [address] URINE DRUG SCREENon 05-11-20 23 AMPHETAMINE/ECSTASY Negative [facility] Comment on above: Performed By: #### E JOHN #### [facility] [address] [place] [address] BARBITURATE Negative [facility] Comment on above: Performed By: #### E JOHN #### [facility] [address] [place] [address] BENZODIAZEPINE Negative [facility] Comment on above: Performed By: #### E JOHN #### [facility] [address] [place] [address] COCAINE METABOLITES Negative [facility] Comment on above: Performed By: #### E JOHN #### [facility] [address] [place] [address] FENTANYL [facility] Comment on above: Result Comment: NEGA TIVE Performed at [address] [address] Performed By: #### E JOHN #### [facility] [address] [address] METHADONE Negative [facility] Comment on above: Performed By: #### E JOHN #### [facility] [address] [address] OPIATE Negative [facility] Comment on above: Performed By: #### E JOHN #### [facility] [address] [address] OXYCODONE Negative [facility] Comment on above: Performed By: #### E JOHN #### [facility] [address] [address] PCP Negative [facility] Comment on above: Performed By: #### E JOHN #### [address] [address] THC/CANNABINOIDS Negative [facility] Comment on above: Performed By: #### E JOHN #### [facility] [address] [address] COMMENT [facility] Comment on above: Result Comment: Thes e Toxicological Screening Tests provide unconfirmed qualitative measurements to aid in treatment and diagnosis in cases of drug use or overdose. This test is used only for medical purposes. A positive result does not indicate or measure intoxication. For specific test performance or pathologist consultation, please contact the Laboratory. The following threshold concentrations are used for these analyses. Values at or above the threshold concentration are reported as Positive. Values below the threshold are reported as negative. Drug Screening Threshold THC/CANNABINOIDS 50 ng/ml METHADONE 300 ng/ml COCAINE METABOLITES 300 ng/ml BENZODIAZEPINE 300 ng/ml PCP 25 ng/ml OPIATE 300 ng/ml AMPHETAMINE/ECSTASY 1000 ng/ml BARBITURATE 200 ng/ml OXYCODONE 100 ng/ml FENTANYL 5 ng/ml Performed By: #### E JOHN #### [facility] [address] [address] Urinalysis complete W Reflex Culture panel (U)on 05-11-2023 Bacteria Auto Ql (U) Negative [facility] Bacteria identified Cx Nom (U) CULTURE BEING ORDERED BASED ON LEUKOCYTE ESTERASE Performed at [address] [address] [facility] Bilirubin Ql (U) Negative NEG [facility] Clarity (U) CLEAR [facility] Color (U) PALE YELLOW [facility] Epithelial cells.squamous Auto Ql (U) NONE SEEN /HPF [facility] Glucose Auto test strip (U) [Mass/Vol] Negative NEG mg/dL [facility] Hemoglobin Auto test strip Ql (U) NONE SEEN [facility] Hemoglobin Ql (U) Negative NEG [facility] Hyaline casts Auto Ql (U) NONE SEEN /LPF [facility] Interpretation and review of laboratory results Abnormal [facility] Ketones Auto test strip Ql (U) Negative NEG [facility] Leukocyte esterase Auto test strip Ql (U) SMALL Abnormal NEG [facility] Nitrite Auto test strip Ql (U) Negative NEG [facility] pH (U) 5.5 [pH] 4.6 - 8.0 [facility] Protein (U) [Mass/Vol] Negative NEG mg/dL [facility] Specific gravity (U) [Rel density] 1.020 1.005 - 1.030 [facility] Urinalysis dipstick W Reflex Microscopic panel (U) AUTOMATIC MICROSCOPIC URINES [facility] Urobilinogen Ql (U) NORMAL [facility] WBC Auto (Urine sed) [#/Area] 3 [facility] XR Chest 2 Viewson 3 Taran Pina MD - 06/05/2023 PROCEDURE: CHEST 2 VIEW - WXR 0020 REASON FOR EXAM: Palpitations RESULT: Patient Name: HOSEA ALVAREZ STUDY: CHEST 2 VIEW 05/11/2023 3:46 pm INDICATION: Palpitations COMPARISON: 01/29/2023 ACCESSION NUMBER(S): [id number] ORDERING CLINICIAN: THALIA ROBERTO TECHNIQUE: Two views chest FINDINGS: Cardiomediastinal silhouette is mildly enlarged. Aorta is tortuous. No infiltrate or effusion identified. Mild multilevel anterior osteophyte formation midthoracic spine. No compression deformity demonstrated. IMPRESSION: No acute cardiopulmonary process. Dictation workstation: [id number] Original Interpreting Physician: TARAN PINA MD Original Transcribed by/Date: [place] May 11 2023 3:18P Original Electronically Signed by/Date: TARAN PINA MD May 11 2023 3:59P Addendum Interpreting Physician: Addendum Transcribed by/Date: NO ADDENDUM Addendum Electronically Signed by/Date: [facility] Work Phone: Radiology Study observation (narrative) [facility] Work Phone: XR Chest 2 ViewsOrdered By: Taran Pina on 05-11-2023 [facility] Work Phone: Activated partial thrombopla stin time (aPTT) in platelet poor plasma by coagulation aOrdered By: Severino Singh on 05-05-2023 aPTT Coag (PPP) [Time] 29.8 s 25.1-36.5 [facility] Alanine aminotransferase [En zymatic activity/volume] in Serum or PlasmaOrdered By: Bozena Shaw on 05-05-2023 ALT [Catalytic activity/Vol] 21 U/L [facility] Alanine aminotransferase [En zymatic activity/volume] in Serum or PlasmaOrdered By: Severino Singh on 05-05-2023 ALT [Catalytic activity/Vol] 25 U/L [facility] Albumin [Mass/volume] in Ser um or Plasma by Bromocresol green (BCG) dye binding methoOrdered By: Bozena Shaw on 05-05-2023 Albumin BCG dye [Mass/Vol] 4.1 g/dL 3.5-5.7 [facility] Albumin [Mass/volume] in Ser um or Plasma by Bromocresol green (BCG) dye binding methoOrdered By: Severino Singh on 05-05-2023 Albumin BCG dye [Mass/Vol] 4.6 g/dL 3.5-5.7 [facility] Alkaline phosphatase [Enzyma tic activity/volume] in Serum or PlasmaOrdered By: Bozena Shaw on 05-05-2023 ALP [Catalytic activity/Vol] 50 U/L [facility] Alkaline phosphatase [Enzyma tic activity/volume] in Serum or PlasmaOrdered By: Severino Singh on 05-05-2023 ALP [Catalytic activity/Vol] 62 U/L [facility] Amphetamine Screen Ql (U)Ord ered By: Bozena Shaw on 05-05-2023 Amphetamines Ql (U) Negative Negative [facility] Aspartate aminotransferase [ Enzymatic activity/volume] in Serum or PlasmaOrdered By: Bozena Shaw on 05-05-2023 AST [Catalytic activity/Vol] 17 U/L [facility] Aspartate aminotransferase [ Enzymatic activity/volume] in Serum or PlasmaOrdered By: Severino Singh on 05-05-2023 AST [Catalytic activity/Vol] 21 U/L [facility] Automated erythrocytes count in urine sediment (number/area)Ordered By: Severino Singh on 05-05-2023 RBC Auto (Urine sed) [#/Area] 1-2 [HPF] 0-4 [facility] Automated leukocytes count i n urine sediment (number/area)Ordered By: Severino Singh on 05-05-2023 WBC Auto (Urine sed) [#/Area] 1-2 [HPF] 0-4 [facility] Barbiturates [Presence] in U rine by Screen methodOrdered By: Bozena Shaw on 05-05-2023 Barbiturates Screen Ql (U) Negative Negative [facility] Basophils Auto (Bld) [#/Vol] Ordered By: Bozena Shaw on 05-05-2023 Basophils (Bld) [#/Vol] 0.0 10*3/uL 0.0-0.2 [facility] Basophils Auto (Bld) [#/Vol] Ordered By: Severino Singh on 05-05-2023 Basophils (Bld) [#/Vol] 0.0 10*3/uL 0.0-0.2 [facility] Basophils/100 WBC Auto (Bld) Ordered By: Bozena Shaw on 05-05-2023 Basophils/100 WBC (Bld) 0.3 % . [facility] Basophils/100 WBC Auto (Bld) Ordered By: Severino Singh on 05-05-2023 Basophils/100 WBC (Bld) 0.4 % . [facility] Benzodiazepines Screen Ql (U )Ordered By: Bozena Shaw on 05-05-2023 Benzodiazepines Ql (U) Negative Negative [facility] Benzoylecgonine [Presence] i n Urine by Screen methodOrdered By: Bozena Shaw on 05-05-2023 Benzoylecgonine Screen Ql (U) Negative Negative [facility] Bilirubin Test strip Ql (U)O rdered By: Severino Singh on 05-05-2023 Bilirubin Ql (U) Negative Negative [facility] Bilirubin.direct [Mass/volum e] in Serum or PlasmaOrdered By: Severino Singh on 05-05-2023 Bilirubin.direct [Mass/Vol] 0.00 mg/dL 0.03-0.18 [facility] Comment on above: If the DBIL is less than 0.1, IBIL is not able to becalculated. Bilirubin.total [Mass/volume ] in Serum or PlasmaOrdered By: Bozena Shaw on 05-05-2023 Bilirubin [Mass/Vol] 0.4 mg/dL 0.3-1.0 [facility] Bilirubin.total [Mass/volume ] in Serum or PlasmaOrdered By: Severino Singh on 05-05-2023 Bilirubin [Mass/Vol] 0.3 mg/dL 0.3-1.0 [facility] Calcium [Mass/volume] in Ser um or PlasmaOrdered By: Bozena Shaw on 05-05-2023 Calcium [Mass/Vol] 8.3 mg/dL 8.6-10.3 [facility] Calcium [Mass/volume] in Ser um or PlasmaOrdered By: Severino Singh on 05-05-2023 Calcium [Mass/Vol] 9.2 mg/dL 8.6-10.3 [facility] Cannabinoids [Presence] in U rine by Screen methodOrdered By: Bozena Shaw on 05-05-2023 Cannabinoids Screen Ql (U) Negative Negative [facility] Comment on above: These are unconfirme d results and should not be used for legal purposes. Drug Cut-Off Concentration: AMPH 1000 ng/mL CIELO 200 ng/mL KAYA 200 ng/mL COCM 300 ng/mL OP 300 ng/mL PCP 25 ng/mL THC 20 ng/mL Carbon dioxide, total [Moles /volume] in Serum or PlasmaOrdered By: Bozena Shaw on 05-05-2023 CO2 [Moles/Vol] 24.3 mmol/L 21.0-31.0 [facility] Carbon dioxide, total [Moles /volume] in Serum or PlasmaOrdered By: Severino Singh on 05-05-2023 CO2 [Moles/Vol] 23.8 mmol/L 21.0-31.0 [facility] Chloride [Moles/volume] in S karolyn or PlasmaOrdered By: Bozena Shaw on 05-05-2023 Chloride [Moles/Vol] 103 mmol/L 98-107 [facility] Chloride [Moles/volume] in S karolyn or PlasmaOrdered By: Severino Singh on 05-05-2023 Chloride [Moles/Vol] 103 mmol/L 98-107 [facility] Color Auto (U)Ordered By: Godwin Singh on 05-05-2023 Color (U) Yellow Yellow [facility] Creatinine [Mass/volume] in Serum or PlasmaOrdered By: Bozena Shaw on 05-05-2023 Creatinine [Mass/Vol] 1.02 mg/dL 0.70-1.30 [facility] Creatinine [Mass/volume] in Serum or PlasmaOrdered By: Severino Singh on 05-05-2023 Creatinine [Mass/Vol] 1.00 mg/dL 0.70-1.30 [facility] Eosinophils Auto (Bld) [#/Vo l]Ordered By: Bozena Shaw on 05-05-2023 Eosinophils (Bld) [#/Vol] 0.0 10*3/uL 0.0-0.45 [facility] Eosinophils Auto (Bld) [#/Vo l]Ordered By: Severino Singh on 05-05-2023 Eosinophils (Bld) [#/Vol] 0.0 10*3/uL 0.0-0.45 [facility] Eosinophils/100 WBC Auto (Bl d)Ordered By: Bozena Shaw on 05-05-2023 Eosinophils/100 WBC (Bld) 0.7 % . [facility] Eosinophils/100 WBC Auto (Bl d)Ordered By: Severino Singh on 05-05-2023 Eosinophils/100 WBC (Bld) 1.2 % . [facility] Erythrocyte distribution wid th Auto (RBC) [Ratio]Ordered By: Bozena Shaw on 05-05-2023 Erythrocyte distribution width (RBC) [Ratio] 13.2 % 12.0-14.8 [facility] Erythrocyte distribution wid th Auto (RBC) [Ratio]Ordered By: Severino Singh on 05-05-2023 Erythrocyte distribution width (RBC) [Ratio] 12.8 % 12.0-14.8 [facility] Ethanol [Mass/volume] in Ser um or PlasmaOrdered By: Bozena Shaw on 05-05-2023 Ethanol [Mass/Vol] mg/dL [facility] Ethanol [Mass/Vol] TNP [facility] Comment on above: Test not performed Globulin Calc (S) [Mass/Vol] Ordered By: Bozena Shaw on 05-05-2023 Globulin (S) [Mass/Vol] 2.5 g/dL [facility] Globulin Calc (S) [Mass/Vol] Ordered By: Severino Singh on 05-05-2023 Globulin (S) [Mass/Vol] 3.1 g/dL [facility] Glucose [Mass/volume] in Ser um or PlasmaOrdered By: Bozena Shaw on 05-05-2023 Glucose [Mass/Vol] 132 mg/dL 70-100 [facility] Comment on above: ADA recommended refe rence rangeRandom Glucose Reference Range is dependent on time and content of last meal. Glucose of more than 200 mg/dL in a nonstressed, ambulatory subject supports the diagnosis of Diabetes Mellitus. Glucose [Mass/volume] in Ser um or PlasmaOrdered By: Severino Singh on 05-05-2023 Glucose [Mass/Vol] 94 mg/dL 70-100 [facility] Comment on above: ADA recommended refe rence rangeRandom Glucose Reference Range is dependent on time and content of last meal. Glucose of more than 200 mg/dL in a nonstressed, ambulatory subject supports the diagnosis of Diabetes Mellitus. Hematocrit Auto (Bld) [Volum e fraction]Ordered By: Bozena Shaw on 05-05-2023 Hematocrit (Bld) [Volume fraction] 38.3 % 38.8-50.0 [facility] Hematocrit Auto (Bld) [Volum e fraction]Ordered By: Severino Singh on 05-05-2023 Hematocrit (Bld) [Volume fraction] 43.1 % 38.8-50.0 [facility] Hemoglobin [Mass/volume] in BloodOrdered By: Bozena Shaw on 05-05-2023 Hemoglobin (Bld) [Mass/Vol] 12.9 g/dL 13.0-17.0 [facility] Hemoglobin [Mass/volume] in BloodOrdered By: Severino Singh on 05-05-2023 Hemoglobin (Bld) [Mass/Vol] 14.7 g/dL 13.0-17.0 [facility] Ketones Auto test strip (U) [Mass/Vol]Ordered By: Severino Singh on 05-05-2023 Ketones (U) [Mass/Vol] Trace Negative [facility] Laboratory - CoagulationOrde red By: Severino Singh on 05-05-2023 PT Coag (PPP) [Time] 10.3 s 9.0-12.9 [facility] - UrinalysisOrder ed By: Severino Singh on 05-05-2023 Hyaline casts LM Ql (Urine sed) 0-8 [LPF] 0-8 [facility] Leukocytes [#/volume] correc sebastián for nucleated erythrocytes in Blood by Automated counOrdered By: Bozena Shaw on 05-05-2023 WBC corrected for nucl RBC Auto (Bld) [#/Vol] 4.8 10*3/uL 4.1-10.5 [facility] Leukocytes [#/volume] correc sebastián for nucleated erythrocytes in Blood by Automated counOrdered By: Severino Singh on 05-05-2023 WBC corrected for nucl RBC Auto (Bld) [#/Vol] 3.3 10*3/uL 4.1-10.5 [facility] Lipase [Enzymatic activity/v olume] in Serum or PlasmaOrdered By: Severino Singh on 05-05-2023 Lipase [Catalytic activity/Vol] 15.0 U/L 11.0-82.0 [facility] Lymphocytes Auto (Bld) [#/Vo l]Ordered By: oBzena Shaw on 05-05-2023 Lymphocytes (Bld) [#/Vol] 0.9 10*3/uL 1.00-4.8 [facility] Lymphocytes Auto (Bld) [#/Vo l]Ordered By: Severino Singh on 05-05-2023 Lymphocytes (Bld) [#/Vol] 0.7 10*3/uL 1.00-4.8 [facility] Lymphocytes/100 WBC Auto (Bl d)Ordered By: Bozena Shaw on 05-05-2023 Lymphocytes/100 WBC (Bld) 19.4 % . [facility] Lymphocytes/100 WBC Auto (Bl d)Ordered By: Severino Singh on 05-05-2023 Lymphocytes/100 WBC (Bld) 20.9 % . [facility] MCH Auto (RBC) [Entitic mass ]Ordered By: Bozena Shaw on 05-05-2023 MCH (RBC) [Entitic mass] 29.0 pg 27.5-35.2 [facility] MCH Auto (RBC) [Entitic mass ]Ordered By: Severino Singh on 05-05-2023 MCH (RBC) [Entitic mass] 29.4 pg 27.5-35.2 [facility] MCHC Auto (RBC) [Mass/Vol]Or dered By: Bozena Shaw on 05-05-2023 MCHC (RBC) [Mass/Vol] 33.7 g/dL 32.5-35.6 [facility] MCHC Auto (RBC) [Mass/Vol]Or dered By: Severino Singh on 05-05-2023 MCHC (RBC) [Mass/Vol] 34.2 g/dL 32.5-35.6 [facility] MCV Auto (RBC) [Entitic vol] Ordered By: Bozena Shaw on 05-05-2023 MCV (RBC) [Entitic vol] 86.0 fL 83.5-101 [facility] MCV Auto (RBC) [Entitic vol] Ordered By: Severino Singh on 05-05-2023 MCV (RBC) [Entitic vol] 85.8 fL 83.5-101 [facility] Monocyte distribution width [Entitic volume] in Blood by AutomatedOrdered By: Bozena Shaw on 05-05-2023 Monocyte distribution width Auto (Bld) [Entitic vol] 16.00 % 0.00-20.00 [facility] Monocyte distribution width [Entitic volume] in Blood by AutomatedOrdered By: Severino Singh on 05-05-2023 Monocyte distribution width Auto (Bld) [Entitic vol] 17.58 % 0.00-20.00 [facility] Monocytes Auto (Bld) [#/Vol] Ordered By: Bozena Shaw on 05-05-2023 Monocytes (Bld) [#/Vol] 0.3 10*3/uL 0.0-0.8 [facility] Monocytes Auto (Bld) [#/Vol] Ordered By: Severino Singh on 05-05-2023 Monocytes (Bld) [#/Vol] 0.3 10*3/uL 0.0-0.8 [facility] Monocytes/100 WBC Auto (Bld) Ordered By: Bozena Shaw on 05-05-2023 Monocytes/100 WBC (Bld) 6.6 % . [facility] Monocytes/100 WBC Auto (Bld) Ordered By: Severino Singh on 05-05-2023 Monocytes/100 WBC (Bld) 7.7 % . [facility] Neutrophils Auto (Bld) [#/Vo l]Ordered By: Bozena Shaw on 05-05-2023 Neutrophils (Bld) [#/Vol] 3.5 10*3/uL 1.8-7.7 [facility] Neutrophils Auto (Bld) [#/Vo l]Ordered By: Severino Singh on 05-05-2023 Neutrophils (Bld) [#/Vol] 2.3 10*3/uL 1.8-7.7 [facility] Neutrophils/100 WBC Auto (Bl d)Ordered By: Bozena Shaw on 05-05-2023 Neutrophils/100 WBC (Bld) 73.0 % . [facility] Neutrophils/100 WBC Auto (Bl d)Ordered By: Severino Singh on 05-05-2023 Neutrophils/100 WBC (Bld) 69.8 % . [facility] Nitrite Test strip Ql (U)Ord ered By: Severino Singh on 05-05-2023 Nitrite Ql (U) Negative Negative [facility] No Panel InformationOrdered By: Bozena Shaw on 05-05-2023 Estimated GFR (CKD-EPI) > 60.0 mL/Min [facility] Creatinine Clearance (Chem 90.37 [facility] No Panel InformationOrdered By: Severino Singh on 05-05-2023 Estimated GFR (CKD-EPI) > 60.0 mL/Min [facility] Creatinine Clearance (Chem 96.66 [facility] Nucleated erythrocytes [Pres ence] in Blood by Automated countOrdered By: Bozena Shaw on 05-05-2023 Nucleated RBC Auto Ql (Bld) 0.0 /100{WBC} 0-0.5 [facility] Nucleated erythrocytes [Pres ence] in Blood by Automated countOrdered By: Severino Singh on 05-05-2023 Nucleated RBC Auto Ql (Bld) 0.2 /100{WBC} 0-0.5 [facility] Opiates [Presence] in Urine by Screen methodOrdered By: Bozena Shaw on 05-05-2023 Opiates Screen Ql (U) Negative Negative [facility] Phencyclidine Screen Ql (U)O rdered By: Bozena Shaw on 05-05-2023 Phencyclidine Ql (U) Negative Negative [facility] Platelet mean volume Auto (B ld) [Entitic vol]Ordered By: Bozena Shaw on 05-05-2023 Platelet mean volume (Bld) [Entitic vol] 8.6 fL 6.6-10.1 [facility] Platelet mean volume Auto (B ld) [Entitic vol]Ordered By: Severino Singh on 05-05-2023 Platelet mean volume (Bld) [Entitic vol] 8.8 fL 6.6-10.1 [facility] Platelet poor plasma interna tional normalized ratio (INR) by coagulation assay (relatOrdered By: Severino Singh on 05-05-2023 INR Coag (PPP) [Relative time] 0.9 {INR} [facility] Comment on above: INR Therapeutic Rang e A) Pre- and Peroperative OAT started two weeks before surgery. NOT HIP SURGERY: 1.5 - 2.5 HIP SURGERY: 2 - 3B) Primary and secondary prevention of venous THROMBOSIS: 2 - 3C) Active venous thrombosis, pulmonary embolismand prevention of recurrent venous thrombosis: 2 - 3D) Prevention of arterial thromboembolismincluding patients with mechanical heart valves: 3 - 4.5 Platelets Auto (Bld) [#/Vol] Ordered By: Bozena Shaw on 05-05-2023 Platelets (Bld) [#/Vol] 135 10*3/uL 150-450 [facility] Platelets Auto (Bld) [#/Vol] Ordered By: Severino Singh on 05-05-2023 Platelets (Bld) [#/Vol] 146 10*3/uL 150-450 [facility] Potassium [Moles/volume] in Serum or PlasmaOrdered By: Bozena Shaw on 05-05-2023 Potassium [Moles/Vol] 3.6 mmol/L 3.5-5.1 [facility] Potassium [Moles/volume] in Serum or PlasmaOrdered By: Severino Singh on 05-05-2023 Potassium [Moles/Vol] 3.9 mmol/L 3.5-5.1 [facility] Protein Auto test strip (U) [Mass/Vol]Ordered By: Severino Singh on 05-05-2023 Protein (U) [Mass/Vol] Trace mg/dL Negative [facility] Protein [Mass/volume] in Ser um or PlasmaOrdered By: Bozena Shaw on 05-05-2023 Protein [Mass/Vol] 6.6 g/dL 6.4-8.9 [facility] Protein [Mass/volume] in Ser um or PlasmaOrdered By: Severino Singh on 05-05-2023 Protein [Mass/Vol] 7.7 g/dL 6.4-8.9 [facility] RBC Auto (Bld) [#/Vol]Ordere d By: Bozena Shaw on 05-05-2023 RBC (Bld) [#/Vol] 4.46 10*6/uL 3.90-5.60 [facility] RBC Auto (Bld) [#/Vol]Ordere d By: Severino Singh on 05-05-2023 RBC (Bld) [#/Vol] 5.02 10*6/uL 3.90-5.60 [facility] Serum or plasma albumin/glob ulin mass ratioOrdered By: Bozena Shaw on 05-05-2023 Albumin/Globulin [Mass ratio] 1.6 {ratio} [facility] Serum or plasma albumin/glob ulin mass ratioOrdered By: Severino Singh on 05-05-2023 Albumin/Globulin [Mass ratio] 1.5 {ratio} [facility] Serum or plasma anion gap de terminationOrdered By: Bozena Shaw on 05-05-2023 Anion gap [Moles/Vol] 13.3 mmol/L 6.0-15.0 [facility] Serum or plasma anion gap de terminationOrdered By: Severino Singh on 05-05-2023 Anion gap [Moles/Vol] TNP [facility] Comment on above: Test not performed Serum or plasma non-glucuron idated bilirubin measurement (mass/volume)Ordered By: Severino Singh on 05-05-2023 Bilirubin.indirect [Mass/Vol] 0.3 mg/dL [facility] Sodium [Moles/volume] in Ser um or PlasmaOrdered By: Bozena Shaw on 05-05-2023 Sodium [Moles/Vol] 137 mmol/L 136-145 [facility] Sodium [Moles/volume] in Ser um or PlasmaOrdered By: Severino Singh on 05-05-2023 Sodium [Moles/Vol] 140 mmol/L 136-145 [facility] Specific gravity Auto test s trip (U) [Rel density]Ordered By: Severino Singh on 05-05-2023 Specific gravity (U) [Rel density] 1.018 1.001-1.030 [facility] Squamous epithelial cells de tection in urine sediment by light microscopyOrdered By: Severino Singh on 05-05-2023 Epithelial cells.squamous LM Ql (Urine sed) None seen [HPF] 0-2 [facility] Troponin I.cardiac [Mass/vol ume] in Serum or Plasma by Detection limit <= 0.01 ng/Ordered By: Bozena Shaw on 05-05-2023 Troponin I.cardiac DL <= 0.01 ng/mL [Mass/Vol] 5.6 pg/mL 0.0-20.0 [facility] Urea nitrogen [Mass/volume] in Serum or PlasmaOrdered By: Bozena Shaw on 05-05-2023 Urea nitrogen [Mass/Vol] 11 mg/dL - [facility] Urea nitrogen [Mass/volume] in Serum or PlasmaOrdered By: Severino Singh on 05-05-2023 Urea nitrogen [Mass/Vol] 13 mg/dL -25 [facility] Urine bacteria detection by automated methodOrdered By: Severino Singh on 05-05-2023 Bacteria Auto Ql (U) None seen None Seen [facility] Urine clarity by refractomet ry automatedOrdered By: Severino Singh on 05-05-2023 Clarity Refractometry automated (U) Clear Clear [facility] Urine glucose measurement by automated test strip (mass/volume)Ordered By: Severino Singh on 05-05-2023 Glucose Auto test strip (U) [Mass/Vol] Normal mg/dL Normal [facility] Urine hemoglobin detection b y automated test stripOrdered By: Severino Singh on 05-05-2023 Hemoglobin Auto test strip Ql (U) Negative Negative [facility] Urine leukocyte esterase det ection by automated test stripOrdered By: Severino Singh on 05-05-2023 Leukocyte esterase Auto test strip Ql (U) Negative Negative [facility] Urobilinogen Auto test strip (U) [Mass/Vol]Ordered By: Severino Singh on 05-05-2023 Urobilinogen (U) [Mass/Vol] Normal mg/dL Normal [facility] WBC Auto (Bld) [#/Vol]Ordere d By: Bozena Shaw on 05-05-2023 WBC (Bld) [#/Vol] 4.8 10*3/uL 4.1-10.5 [facility] WBC Auto (Bld) [#/Vol]Ordere d By: Severino Marinozi on 05-05-2023 WBC (Bld) [#/Vol] 3.3 10*3/uL 4.1-10.5 [facility] pH Auto test strip (U)Ordere d By: Severino Samantha on 05-05-2023 pH (U) 5.5 [pH] 5.0-9.0 [facility] XR CHEST (2 VW)on 04-22-2023 XR CHEST (2 VW) EXAMINATION: TWO X-RAY VIEWS OF THE CHEST 04/21/2023 3:50 pm COMPARISON: April 20, 2023 HISTORY: ORDERING SYSTEM PROVIDED HISTORY: Chest pain TECHNOLOGIST PROVIDED HISTORY: Chest pain FINDINGS: Redemonstration of hyperinflation and COPD. Minimal congestion. No active infiltrates. Heart and mediastinum appear stable. IMPRESSION: No acute chest abnormality. Stable COPD. Minimal congestion. Interpreted by: Rosi Vega MD Signed by: Rosi Vega MD 04/22/23 Final result Normal [facility] Basic Metabolic Profon 04-21 Anion gap [Moles/Vol] 15 mmol/L Normal 9-17 [facility] Comment on above: Performed By: #### C CARLENE CHEATHAM TROPI #### [employer] [address] [place] [id number] Saddle Maker: Maycol Mendiola MD Calcium [Mass/Vol] 9.3 mg/dL Normal 8.6-10.4 [facility] Comment on above: Performed By: #### C CARLENE CHEATHAM, TROPI #### [employer] [address] [place], [place] [id number] Saddle Maker: Maycol Mendiola MD Chloride [Moles/Vol] 103 mmol/L Normal 98-107 [facility] Comment on above: Performed By: #### C DP BMP, TROPI #### [facility] [place] [address] Saddle Maker: Maycol Mendiola MD CO2 [Moles/Vol] 20 mmol/L Normal 20-31 [facility] Comment on above: Performed By: #### C LINDEN BMP, TROPI #### [facility] [address] [place] [phone] Saddle Maker: Maycol Mendiola MD Creatinine [Mass/Vol] 0.9 mg/dL Normal 0.7-1.2 [facility] Comment on above: Performed By: #### C CARLENE CHEATHAM, TROPI #### [address] [address] Saddle Maker: Maycol Mendiola MD GFR/1.73 sq M.predicted among non-blacks MDRD (S/P/Bld) [Vol rate/Area] mL/min/{1.73_m2} Normal >60 [facility] Comment on above: Result Comment: These results are not intended for use in patients <18 years of age. eGFR results are calculated without a race factor using the 2020 CKD-EPI equation. Careful clinical correlation is recommended, particularly when comparing to results calculated using previous equations. The CKD-EPI equation is less accurate in patients with extremes of muscle mass, extra-renal metabolism of creatine, excessive creatine ingestion, or following therapy that affects renal tubular secretion. Performed By: #### C LINDEN BMP, TROPI #### [facility] [place] [address] Saddle Maker: Maycol Mendiola MD Glucose [Mass/Vol] 120 mg/dL High 70-99 [facility] Comment on above: Performed By: #### C LINDEN BMP, TROPI #### [facility] [place] [address] Saddle Maker: Maycol Mendiola MD Potassium [Moles/Vol] 3.9 mmol/L Normal 3.7-5.3 [facility] Comment on above: Performed By: #### C DP, BMP, TROPI #### [place] [address] Saddle Maker: Maycol Mendiola MD Sodium [Moles/Vol] 138 mmol/L Normal 135-144 [facility] Comment on above: Performed By: #### C DP, BMP, TROPI #### [place] [address] Saddle Maker: Maycol Mendiola MD Urea nitrogen [Mass/Vol] 12 mg/dL Normal 6-20 [facility] Comment on above: Performed By: #### C DP, BMP, TROPI #### [place] [address] Saddle Maker: Maycol Mendiola MD CBC with Diffon 04-21-2023 Abs. Basophil <0.03 Normal 0.00-0.20 [facility] Comment on above: Performed By: #### C DP, BMP, TROPI #### [place] [address] Saddle Maker: Maycol Mendiola MD Abs.Imm.Granulocyte <0.03 Normal 0.00-0.30 [facility] Comment on above: Performed By: #### C DP, BMP, TROPI #### [place] [address] Saddle Maker: Maycol Mendiola MD Abs.Neutrophil (Seg) 2.61 k/uL Normal 1.50-8.10 [facility] Comment on above: Performed By: #### C DP, BMP, TROPI #### [facility] [employer] [address] [place] [address] Saddle Maker: Maycol Mendiola MD Basophils/100 WBC (Bld) 1 % Normal 0-2 [facility] Comment on above: Performed By: #### C DP, BMP, TROPI #### [facility] [employer] [facility] [place] [address] Saddle Maker: Maycol Mendiola MD Eosinophils (Bld) [#/Vol] 0.06 10*3/uL Normal 0.00-0.44 [facility] Comment on above: Performed By: #### C DP, BMP, TROPI #### [facility] [employer] [address] [place] [address] Saddle Maker: Maycol Mendiola MD Eosinophils/100 WBC (Bld) 2 % Normal 1-4 [facility] Comment on above: Performed By: #### C DP, BMP, TROPI #### [facility] [employer] [address] [place] [phone] Saddle Maker: Maycol Mendiola MD Erythrocyte distribution width (RBC) [Ratio] 12.3 % Normal 11.8-14.4 [facility] Comment on above: Performed By: #### C DP, BMP, TROPI #### [facility] [employer] [address] [place] [address] Saddle Maker: Maycol Mendiola MD Hematocrit (Bld) [Volume fraction] 41.3 % Normal 40.7-50.3 [facility] Comment on above: Performed By: #### C DP, BMP, TROPI #### [facility] [employer] [address] [place] [address] Saddle Maker: Maycol Mendiola MD Hemoglobin (Bld) [Mass/Vol] 13.8 g/dL Normal 13.0-17.0 [facility] Comment on above: Performed By: #### C DP, BMP, TROPI #### [facility] [employer] [address] [place] [address] Saddle Maker: Maycol Mendiola MD Immature granulocytes/100 WBC (Bld) 0 % Normal 0 [facility] Comment on above: Performed By: #### C DP, BMP, TROPI #### [employer] [address] [place] [address] Saddle Maker: Maycol Mendiola MD Lymphocytes (Bld) [#/Vol] 0.92 10*3/uL Low 1.10-3.70 [facility] Comment on above: Performed By: #### C DP, BMP, TROPI #### [address] [address] Saddle Maker: Maycol Mendiola MD Lymphocytes/100 WBC (Bld) 23 % Low 24-43 [facility] Comment on above: Performed By: #### C DP, BMP, TROPI #### [facility] [employer] [address] [place] [address] Saddle Maker: Maycol Mendiola MD MCH (RBC) [Entitic mass] 29.6 pg Normal 25.2-33.5 [facility] Comment on above: Performed By: #### C DP, BMP, TROPI #### [facility] [employer] [address] [place] [address] Saddle Maker: Maycol Mendiola MD MCHC (RBC) [Mass/Vol] 33.4 g/dL Normal 28.4-34.8 [facility] Comment on above: Performed By: #### C DP, BMP, TROPI #### [facility] [employer] [address] [place] [address] Saddle Maker: Maycol Mendiola MD MCV (RBC) [Entitic vol] 88.4 fL Normal 82.6-102.9 [facility] Comment on above: Performed By: #### C DP, BMP, TROPI #### [facility] [employer] [address] [place] [address] Saddle Maker: Maycol Mendiola MD Monocytes (Bld) [#/Vol] 0.36 10*3/uL Normal 0.10-1.20 [facility] Comment on above: Performed By: #### C DP, BMP, TROPI #### [place] [id number] [place] [address] Saddle Maker: Maycol Mendiola MD Monocytes/100 WBC (Bld) 9 % Normal 3-12 [facility] Comment on above: Performed By: #### C DP, BMP, TROPI #### [address] [address] Saddle Maker: Maycol Mendiola MD Neutrophil (Seg) 65 % Normal 36-65 [facility] Comment on above: Performed By: #### C DP, BMP, TROPI #### [address] [address] Saddle Maker: Maycol Mendiola MD NRBC Automated 0.0 per 100 WBC Normal 0.0 [facility] Comment on above: Performed By: #### C DP, BMP, TROPI #### [facility] [employer] [address] [place] [address] Saddle Maker: Maycol Mendiola MD Platelet mean volume (Bld) [Entitic vol] 11.1 fL Normal 8.1-13.5 [facility] Comment on above: Performed By: #### C DP, BMP, TROPI #### [facility] [employer] [address] [place] [address] Saddle Maker: Maycol Mendiola MD Platelets (Bld) [#/Vol] 141 10*3/uL Normal 138-453 [facility] Comment on above: Performed By: #### C DP, BMP, TROPI #### [facility] [address] [place] [address] Saddle Maker: Maycol Mendiola MD RBC (Bld) [#/Vol] 4.67 10*6/uL Normal 4.21-5.77 [facility] Comment on above: Performed By: #### C DP, BMP, TROPI #### [facility] [employer] [address] [place] [address] Saddle Maker: Maycol Mendiola MD WBC (Bld) [#/Vol] 4.0 10*3/uL Normal 3.5-11.3 [facility] Comment on above: Performed By: #### C DP, BMP, TROPI #### [address] [address] Saddle Maker: Maycol Mendiola MD Troponinon 04-21-2023 Troponin, High Sens 6 ng/L Normal 0-22 [facility] Comment on above: Result Comment: High Sensitivity Troponin values cannot be compared with other Troponin methodologies. Performed By: #### C DP, BMP, TROPI #### [address] [address] Saddle Maker: Maycol Mendiola MD Basic Metabolic Profon 04-20 Anion gap [Moles/Vol] 11 mmol/L Normal 9-17 [facility] Comment on above: Performed By: #### C DP, BMP, TROPI #### [address] [address] Saddle Maker: Maycol Mendiola MD Calcium [Mass/Vol] 9.1 mg/dL Normal 8.6-10.4 [facility] Comment on above: Performed By: #### C DP, BMP, TROPI #### [address] [address] Saddle Maker: Maycol Mendiola MD Chloride [Moles/Vol] 103 mmol/L Normal 98-107 [facility] Comment on above: Performed By: #### C DP, BMP, TROPI #### [address] [address] Saddle Maker: Maycol Mendiola MD CO2 [Moles/Vol] 23 mmol/L Normal 20-31 [facility] Comment on above: Performed By: #### C DP, BMP, TROPI #### [address] [address] Saddle Maker: Maycol Mendiola MD Creatinine [Mass/Vol] 0.9 mg/dL Normal 0.7-1.2 [facility] Comment on above: Performed By: #### C DP, BMP, TROPI #### [facility] [address] [place] [phone] Saddle Maker: Maycol Mendiola MD GFR/1.73 sq M.predicted among non-blacks MDRD (S/P/Bld) [Vol rate/Area] mL/min/{1.73_m2} Normal >60 [facility] Comment on above: Result Comment: These results are not intended for use in patients <18 years of age. eGFR results are calculated without a race factor using the 2020 CKD-EPI equation. Careful clinical correlation is recommended, particularly when comparing to results calculated using previous equations. The CKD-EPI equation is less accurate in patients with extremes of muscle mass, extra-renal metabolism of creatine, excessive creatine ingestion, or following therapy that affects renal tubular secretion. Performed By: #### C DP, BMP, TROPI #### [facility] [employer] [address] [place] [id number] Saddle Maker: Maycol Mendiola MD Glucose [Mass/Vol] 109 mg/dL High 70-99 [facility] Comment on above: Performed By: #### C DP, BMP, TROPI #### [facility] [address] [place] [address] Saddle Maker: Maycol Mendiola MD Potassium [Moles/Vol] 4.1 mmol/L Normal 3.7-5.3 [facility] Comment on above: Performed By: #### C DP, BMP, TROPI #### [facility] [address] [place] [phone] Saddle Maker: Maycol Mendiola MD Sodium [Moles/Vol] 137 mmol/L Normal 135-144 [facility] Comment on above: Performed By: #### C DP, BMP, TROPI #### [id number] [place], [place] [id number] Saddle Maker: Maycol Mendiola MD Urea nitrogen [Mass/Vol] 14 mg/dL Normal 6-20 [facility] Comment on above: Performed By: #### C DP, BMP, TROPI #### [address] [id number] Saddle Maker: Maycol Mendiola MD Anion gap [Moles/Vol] 12 mmol/L Normal 9-17 [facility] Comment on above: Performed By: #### C DP, BMP, TROPI #### [place] [address] Saddle Maker: Catalino Campbell MD Calcium [Mass/Vol] 9.0 mg/dL Normal 8.6-10.4 [facility] Comment on above: Performed By: #### C DP, BMP, TROPI #### [place] [address] Saddle Maker: Catalino Campbell MD Chloride [Moles/Vol] 104 mmol/L Normal 98-107 [facility] Comment on above: Performed By: #### C DP, BMP, TROPI #### [place] [address] Saddle Maker: Catalino Campbell MD CO2 [Moles/Vol] 22 mmol/L Normal 20-31 [facility] Comment on above: Performed By: #### C DP, BMP, TROPI #### [place] [address] Saddle Maker: Catalino Campbell MD Creatinine [Mass/Vol] 0.9 mg/dL Normal 0.7-1.2 [facility] Comment on above: Performed By: #### C DP, BMP, TROPI #### [place] [address] Saddle Maker: Catalino Campbell MD GFR/1.73 sq M.predicted among non-blacks MDRD (S/P/Bld) [Vol rate/Area] mL/min/{1.73_m2} Normal >60 [facility] Comment on above: Result Comment: These results are not intended for use in patients <18 years of age. eGFR results are calculated without a race factor using the 2020 CKD-EPI equation. Careful clinical correlation is recommended, particularly when comparing to results calculated using previous equations. The CKD-EPI equation is less accurate in patients with extremes of muscle mass, extra-renal metabolism of creatine, excessive creatine ingestion, or following therapy that affects renal tubular secretion. Performed By: #### C CARLENE CHEATHAM, TROPI #### [place] [address] Saddle Maker: Catalino Campbell MD Glucose [Mass/Vol] 109 mg/dL High 70-99 [facility] Comment on above: Performed By: #### C CARLENE CHEATHAM, TROPI #### [place] [address] Saddle Maker: Catalino Campbell MD Potassium [Moles/Vol] 4.2 mmol/L Normal 3.7-5.3 [facility] Comment on above: Performed By: #### C LINDEN BMP, TROPI #### [place] [address] Saddle Maker: Catalino Campbell MD Sodium [Moles/Vol] 138 mmol/L Normal 135-144 [facility] Comment on above: Performed By: #### C LINDEN BMP, TROPI #### [place] [id number] Saddle Maker: Catalino Campbell MD Urea nitrogen [Mass/Vol] 13 mg/dL Normal 6-20 [facility] Comment on above: Performed By: #### C DP, BMP, TROPI #### [place] [address] Saddle Maker: Catalino Campbell MD CBC with Diffon 04-20-2023 Abs. Basophil 0.00 k/uL Normal 0.0-0.2 [facility] Comment on above: Performed By: #### C DP, BMP, TROPI #### [place] [address] Saddle Maker: Catalino Campbell MD Abs.Neutrophil (Seg) 2.50 k/uL Normal 1.8-7.7 [facility] Comment on above: Performed By: #### C DP, BMP, TROPI #### [place] [address] Saddle Maker: Catalino Campbell MD Basophils/100 WBC (Bld) 0 % Normal 0-2 [facility] Comment on above: Performed By: #### C DP, BMP, TROPI #### [place] [address] Saddle Maker: Catalino Campbell MD Eosinophils (Bld) [#/Vol] 0.10 10*3/uL Normal 0.0-0.4 [facility] Comment on above: Performed By: #### C DP, BMP, TROPI #### [place] [address] Saddle Maker: Catalino Campbell MD Eosinophils/100 WBC (Bld) 1 % Normal 1-4 [facility] Comment on above: Performed By: #### C DP, BMP, TROPI #### [address] [place] [address] Saddle Maker: Catalino Campbell MD Erythrocyte distribution width (RBC) [Ratio] 13.4 % Normal 12.5-15.4 [facility] Comment on above: Performed By: #### C DP, BMP, TROPI #### [place] [address] Saddle Maker: Catalino Campbell MD Hematocrit (Bld) [Volume fraction] 39.6 % Low 41-53 [facility] Comment on above: Performed By: #### C DP, BMP, TROPI #### [place] [address] Saddle Maker: Catalino Campbell MD Hemoglobin (Bld) [Mass/Vol] 13.4 g/dL Low 13.5-17.5 [facility] Comment on above: Performed By: #### C DP, BMP, TROPI #### [place] [address] Saddle Maker: Catalino Campbell MD Lymphocytes (Bld) [#/Vol] 0.70 10*3/uL Low 1.0-4.8 [facility] Comment on above: Performed By: #### C DP, BMP, TROPI #### [place] [address] Saddle Maker: Catalino Campbell MD Lymphocytes/100 WBC (Bld) 20 % Low 24-44 [facility] Comment on above: Performed By: #### C DP, BMP, TROPI #### [place] [address] Saddle Maker: Catalino Campbell MD MCH (RBC) [Entitic mass] 29.5 pg Normal 26-34 [facility] Comment on above: Performed By: #### C DP, BMP, TROPI #### [place] [address] Saddle Maker: Catalino Campbell MD MCHC (RBC) [Mass/Vol] 33.9 g/dL Normal 31-37 [facility] Comment on above: Performed By: #### C DP, BMP, TROPI #### [place] [address] Saddle Maker: Catalino Campbell MD MCV (RBC) [Entitic vol] 86.9 fL Normal 80-100 [facility] Comment on above: Performed By: #### C DP, BMP, TROPI #### [place] [address] Saddle Maker: Catalino Campbell MD Monocytes (Bld) [#/Vol] 0.30 10*3/uL Normal 0.1-1.2 [facility] Comment on above: Performed By: #### C DP, BMP, TROPI #### [place] [address] Saddle Maker: Catalino Campbell MD Monocytes/100 WBC (Bld) 10 % Normal 2-11 [facility] Comment on above: Performed By: #### C DP, BMP, TROPI #### [place] [address] Saddle Maker: Catalino Campbell MD Neutrophil (Seg) 69 % High 36-66 [facility] Comment on above: Performed By: #### C DP, BMP, TROPI #### [place] [address] Saddle Maker: Catalino Campbell MD Platelet mean volume (Bld) [Entitic vol] 8.6 fL Normal 6.0-12.0 [facility] Comment on above: Performed By: #### C DP, BMP, TROPI #### [place] [address] Saddle Maker: Catalino Campbell MD Platelets (Bld) [#/Vol] 136 10*3/uL Low 140-450 [facility] Comment on above: Performed By: #### C DP, BMP, TROPI #### [place] [address] Saddle Maker: Catailno Campbell MD RBC (Bld) [#/Vol] 4.56 10*6/uL Normal 4.5-5.9 [facility] Comment on above: Performed By: #### C DP, BMP, TROPI #### [place] [address] Saddle Maker: Catalino Campbell MD WBC (Bld) [#/Vol] 3.6 10*3/uL Normal 3.5-11.0 [facility] Comment on above: Performed By: #### C DP, BMP, TROPI #### [place] [address] Saddle Maker: Catalino Campbell MD Abs. Basophil 0.00 k/uL Normal 0.0-0.2 [facility] Comment on above: Performed By: #### C DP, BMP, TROPI #### [place] [address] Saddle Maker: Catalino Campbell MD Abs.Neutrophil (Seg) 2.40 k/uL Normal 1.8-7.7 [facility] Comment on above: Performed By: #### C DP, BMP, TROPI #### [place] [address] Saddle Maker: Catalino Campbell MD Basophils/100 WBC (Bld) 0 % Normal 0-2 [facility] Comment on above: Performed By: #### C DP, BMP, TROPI #### [place] [address] Saddle Maker: Catalino Campbell MD Eosinophils (Bld) [#/Vol] 0.10 10*3/uL Normal 0.0-0.4 [facility] Comment on above: Performed By: #### C DP, BMP, TROPI #### [place] [address] Saddle Maker: Catalino Campbell MD Eosinophils/100 WBC (Bld) 2 % Normal 1-4 [facility] Comment on above: Performed By: #### C DP, BMP, TROPI #### [place] [address] Saddle Maker: Catalino Campbell MD Erythrocyte distribution width (RBC) [Ratio] 13.4 % Normal 12.5-15.4 [facility] Comment on above: Performed By: #### C DP, BMP, TROPI #### [place] [address] Saddle Maker: Catalino Campbell MD Hematocrit (Bld) [Volume fraction] 43.1 % Normal 41-53 [facility] Comment on above: Performed By: #### C DP, BMP, TROPI #### [place] [address] Saddle Maker: Catalino Campbell MD Hemoglobin (Bld) [Mass/Vol] 14.5 g/dL Normal 13.5-17.5 [facility] Comment on above: Performed By: #### C DP, BMP, TROPI #### [place] [address] Saddle Maker: Catalino Campbell MD Lymphocytes (Bld) [#/Vol] 0.70 10*3/uL Low 1.0-4.8 [facility] Comment on above: Performed By: #### C DP, BMP, TROPI #### [place] [address] Saddle Maker: Catalino Campbell MD Lymphocytes/100 WBC (Bld) 20 % Low 24-44 [facility] Comment on above: Performed By: #### C DP, BMP, TROPI #### [place] [address] Saddle Maker: Catalino Campbell MD MCH (RBC) [Entitic mass] 29.6 pg Normal 26-34 [facility] Comment on above: Performed By: #### C DP, BMP, TROPI #### [place] [address] Saddle Maker: Catalino Campbell MD MCHC (RBC) [Mass/Vol] 33.8 g/dL Normal 31-37 [facility] Comment on above: Performed By: #### C DP, BMP, TROPI #### [place] [address] Saddle Maker: Catalino Campbell MD MCV (RBC) [Entitic vol] 87.5 fL Normal 80-100 [facility] Comment on above: Performed By: #### C DP, BMP, TROPI #### [place] [address] Saddle Maker: Catalino Campbell MD Monocytes (Bld) [#/Vol] 0.30 10*3/uL Normal 0.1-1.2 [facility] Comment on above: Performed By: #### C DP, BMP, TROPI #### [place] [address] Saddle Maker: Catalino Campbell MD Monocytes/100 WBC (Bld) 8 % Normal 2-11 [facility] Comment on above: Performed By: #### C DP, BMP, TROPI #### [place] [address] Saddle Maker: Catalino Campbell MD Neutrophil (Seg) 70 % High 36-66 [facility] Comment on above: Performed By: #### C DP, BMP, TROPI #### [place] [address] Saddle Maker: Catalino Campbell MD Platelet mean volume (Bld) [Entitic vol] 8.8 fL Normal 6.0-12.0 [facility] Comment on above: Performed By: #### C DP, BMP, TROPI #### [place] [address] Saddle Maker: Catalino Campbell MD Platelets (Bld) [#/Vol] 134 10*3/uL Low 140-450 [facility] Comment on above: Performed By: #### C DP, BMP, TROPI #### [place] [address] Saddle Maker: Catalino Campbell MD RBC (Bld) [#/Vol] 4.92 10*6/uL Normal 4.5-5.9 [facility] Comment on above: Performed By: #### C DP, BMP, TROPI #### [facility] [address] [place], [place] [phone] Saddle Maker: Catalino Campbell MD WBC (Bld) [#/Vol] 3.4 10*3/uL Low 3.5-11.0 [facility] Comment on above: Performed By: #### C DP, BMP, TROPI #### [address] [phone] Saddle Maker: Catalino Campbell MD Troponinon 04-20-2023 Troponin, High Sens 6 ng/L Normal 0-22 [facility] Comment on above: Result Comment: High Sensitivity Troponin values cannot be compared with other Troponin methodologies. Performed By: #### T ROPI #### [address] [phone] Saddle Maker: Catalino Campbell MD Troponin, High Sens 7 ng/L Normal 0-22 [facility] Comment on above: Result Comment: High Sensitivity Troponin values cannot be compared with other Troponin methodologies. Performed By: #### C DP, BMP, TROPI #### [address] [phone] Saddle Maker: Maycol Mendiola MD Troponin, High Sens 7 ng/L Normal 0-22 [facility] Comment on above: Result Comment: High Sensitivity Troponin values cannot be compared with other Troponin methodologies. Performed By: #### C DP, BMP, TROPI #### [address] [address] Saddle Maker: Catalino Campbell MD XR CHEST PORTABLEon 04-20-20 23 XR CHEST PORTABLE EXAMINATION: ONE XRAY VIEW OF THE CHEST 04/20/2023 1:14 pm COMPARISON: Chest CT and AP chest from 01/17/2020 HISTORY: ORDERING SYSTEM PROVIDED HISTORY: CP TECHNOLOGIST PROVIDED HISTORY: CP Reason for Exam: Pt states he has blood pressure issues FINDINGS: Mildly enlarged cardiac silhouette, likely increased somewhat as compared to 2019. Mediastinal structures appropriate for slight rotation to the right with some elongation thoracic aorta again noted. Mild probable basilar atelectasis, better seen right base. No consolidation or large pleural effusion. No pneumothorax. Moderate-severe DJD spine IMPRESSION: No acute cardiopulmonary disease. Likely further increased mild cardiomegaly. Interpreted by: Robina Perez MD Signed by: Robina Perez MD 04/20/23 Final result Normal [facility] Alcohol (Ethanol)on 02-05-20 Ethanol [Mass/Vol] 88 mg/dL Normal [facility] Comment on above: Result Comment: Not Detected Basic Metabolic Panelon 01-21 Anion gap [Moles/Vol] 14 mmol/L Normal - [facility] Calcium [Mass/Vol] 9.0 mg/dL Normal 8.6-10.2 [facility] Chloride [Moles/Vol] 105 mmol/L Normal 98-107 [facility] CO2 [Moles/Vol] 23 mmol/L Normal - [facility] Creatinine [Mass/Vol] 1.0 mg/dL Normal 0.7-1.2 [facility] GFR Calculated >60 Normal >=60 [facility] Comment on above: Result Comment: Chaim atric calculator link [email or web address]://www.kidney.org/professionals/kdoqi/gfr_[email or web address] Effective Jun 25, 2022 These results are not intended for use in patients <18 years of age. eGFR results are calculated without a race factor using the 2020 CKD-EPI equation. Careful clinical correlation is recommended, particularly when comparing to results calculated using previous equations. The CKD-EPI equation is less accurate in patients with extremes of muscle mass, extra-renal metabolism of creatinine, excessive creatinine ingestion, or following therapy that affects renal tubular secretion. Glucose [Mass/Vol] 127 mg/dL High 74-99 [facility] Potassium [Moles/Vol] 3.8 mmol/L Normal 3.5-5.0 [facility] Sodium [Moles/Vol] 142 mmol/L Normal 132-146 [facility] Urea nitrogen [Mass/Vol] 16 mg/dL Normal 6-20 [facility] CBC With Platelet and Differ entialon 02-04-2023 Abs Imm Granulocytes 0.02 E9/L Normal [facility] Absolute Basophils 0.01 E9/L Normal 0.00-0.20 [facility] Absolute Eosinophils 0.07 E9/L Normal 0.05-0.50 [facility] Absolute Lymphocytes 1.22 E9/L Low 1.50-4.00 [facility] Absolute Monocytes 0.30 E9/L Normal 0.10-0.95 [facility] Absolute Neutrophils 1.90 E9/L Normal 1.80-7.30 [facility] Basophils/100 WBC (Bld) 0.3 % Normal 0.0-2.0 [facility] Eosinophils/100 WBC (Bld) 2.0 % Normal 0.0-6.0 [facility] Hematocrit (Bld) [Volume fraction] 37.9 % Normal 37.0-54.0 [facility] Hemoglobin (Bld) [Mass/Vol] 12.6 g/dL Normal 12.5-16.5 [facility] Imm Granulocytes 0.6 % Normal 0.0-5.0 [facility] Lymphocytes/100 WBC (Bld) 34.7 % Normal 20.0-42.0 [facility] MCH (RBC) [Entitic mass] 29.2 pg Normal 26.0-35.0 [facility] MCHC 33.2 % Normal 32.0-34.5 [facility] MCV (RBC) [Entitic vol] 87.7 fL Normal 80.0-99.9 [facility] Monocytes/100 WBC (Bld) 8.5 % Normal 2.0-12.0 [facility] Neutrophils/100 WBC (Bld) 53.9 % Normal 43.0-80.0 [facility] Platelet Count 134 E9/L Normal 130-450 [facility] Platelet mean volume (Bld) [Entitic vol] 10.6 fL Normal 7.0-12.0 [facility] RBC 4.32 E12/L Normal 3.80-5.80 [facility] RDW 13.0 fL Normal 11.5-15.0 [facility] WBC 3.5 E9/L Low 4.5-11.5 [facility] High Sensitivity Troponin To n 02-04-2023 High Sensitivity Troponin T <6 Normal 0-11 [facility] Comment on above: Result Comment: High Sensitivity Troponin values cannot be compared with other Troponin methodologies. Serum Drug Screenon 02-05-20 TCA Screen Negative Normal Cutoff:300 [facility] Acetaminophen [Mass/Vol] ug/mL Low 10.0-30.0 [facility] Ethanol [Mass/Vol] 216 mg/dL Normal [facility] Comment on above: Result Comment: Not Detected Salicylate <0.3 Normal 0.0-30.0 [facility] XR CHEST PORTABLEon 02-05-20 XR CHEST PORTABLE EXAMINATION: ONE XRAY VIEW OF THE CHEST 02/04/2023 2:35 am COMPARISON: None. HISTORY: ORDERING SYSTEM PROVIDED HISTORY: chest pain TECHNOLOGIST PROVIDED HISTORY: Reason for exam:->chest pain FINDINGS: Normal cardiomediastinal silhouette. Lungs clear. No pneumothorax or effusion. Body wall soft tissues unremarkable. Osseous thorax intact. IMPRESSION: No acute disease. RECOMMENDATION: Careful clinical correlation and follow up recommended. Interpreted by: Kristen Ascencio MD Signed by: Kristen Ascencio MD 02/04/23 Final result Normal [facility] Comment on above: Order Comment: Reaso n for exam:->chest pain Basic Metabolic Panelon 01-21 Anion gap [Moles/Vol] 12 mmol/L Normal 7-16 [facility] Calcium [Mass/Vol] 9.2 mg/dL Normal 8.6-10.2 [facility] Chloride [Moles/Vol] 102 mmol/L Normal 98-107 [facility] CO2 [Moles/Vol] 25 mmol/L Normal 22-29 [facility] Creatinine [Mass/Vol] 1.0 mg/dL Normal 0.7-1.2 [facility] GFR Calculated >60 Normal >=60 [facility] Comment on above: Result Comment: Chaim atric calculator link [email or web address]://www.kidney.org/professionals/kdoqi/gfr_[email or web address] Effective Jun 25, 2022 These results are not intended for use in patients <18 years of age. eGFR results are calculated without a race factor using the 2020 CKD-EPI equation. Careful clinical correlation is recommended, particularly when comparing to results calculated using previous equations. The CKD-EPI equation is less accurate in patients with extremes of muscle mass, extra-renal metabolism of creatinine, excessive creatinine ingestion, or following therapy that affects renal tubular secretion. Glucose [Mass/Vol] 91 mg/dL Normal 74-99 [facility] Potassium [Moles/Vol] 4.3 mmol/L Normal 3.5-5.0 [facility] Comment on above: Result Comment: Spec imen is moderately Hemolyzed. Result may be artificially increased. Sodium [Moles/Vol] 139 mmol/L Normal 132-146 [facility] Urea nitrogen [Mass/Vol] 17 mg/dL Normal 6-20 [facility] Basic metabolic 2000 panelon 02-02-2023 Anion gap [Moles/Vol] 12 mmol/L 7 - 16 mmol/L [facility] Calcium [Mass/Vol] 9.2 mg/dL 8.6 - 10. 2 mg/dL [facility] Chloride [Moles/Vol] 102 mmol/L 98 - 10 7 mmol/L [facility] CO2 [Moles/Vol] 25 mmol/L 22 - 29 mmol/L [facility] Creatinine [Mass/Vol] 1 mg/dL 0.7 - 1.2 mg/dL [facility] GFR/1.73 sq M.predicted among non-blacks MDRD (S/P/Bld) [Vol rate/Area] mL/min/1.73 60 - PINF mL/min/1.73 [facility] Comment on above: Pediatric calculator link [email or web address]://www.kidney.org/professionals/kdoqi/gfr_calculatorped Effective Jun 25, 2022 These results are not intended for use in patients <18 years of age. eGFR results are calculated without a race factor using the 2020 CKD-EPI equation. Careful clinical correlation is recommended, particularly when comparing to results calculated using previous equations. The CKD-EPI equation is less accurate in patients with extremes of muscle mass, extra-renal metabolism of creatinine, excessive creatinine ingestion, or following therapy that affects renal tubular secretion. Glucose [Mass/Vol] 91 mg/dL 74 - 99 mg/dL [facility] Potassium [Moles/Vol] 4.3 mmol/L 3.5 - 5.0 mmol/L [facility] Comment on above: Specimen is moderate ly Hemolyzed. Result may be artificially increased. Sodium [Moles/Vol] 139 mmol/L 132 - 146 mmol/L [facility] Urea nitrogen [Mass/Vol] 17 mg/dL 6 - 20 mg/dL [facility] CBC With Platelet and Differ entialon 02-02-2023 Abs Imm Granulocytes 0.02 E9/L Normal [facility] Absolute Basophils 0.03 E9/L Normal 0.00-0.20 [facility] Absolute Eosinophils 0.08 E9/L Normal 0.05-0.50 [facility] Absolute Lymphocytes 1.03 E9/L Low 1.50-4.00 [facility] Absolute Monocytes 0.32 E9/L Normal 0.10-0.95 [facility] Absolute Neutrophils 2.82 E9/L Normal 1.80-7.30 [facility] Basophils/100 WBC (Bld) 0.7 % Normal 0.0-2.0 [facility] Eosinophils/100 WBC (Bld) 1.9 % Normal 0.0-6.0 [facility] Hematocrit (Bld) [Volume fraction] 40.0 % Normal 37.0-54.0 [facility] Hemoglobin (Bld) [Mass/Vol] 13.3 g/dL Normal 12.5-16.5 [facility] Imm Granulocytes 0.5 % Normal 0.0-5.0 [facility] Lymphocytes/100 WBC (Bld) 24.0 % Normal 20.0-42.0 [facility] MCH (RBC) [Entitic mass] 29.1 pg Normal 26.0-35.0 [facility] MCHC 33.3 % Normal 32.0-34.5 [facility] MCV (RBC) [Entitic vol] 87.5 fL Normal 80.0-99.9 [facility] Monocytes/100 WBC (Bld) 7.4 % Normal 2.0-12.0 [facility] Neutrophils/100 WBC (Bld) 65.5 % Normal 43.0-80.0 [facility] Platelet Count 147 E9/L Normal 130-450 [facility] Platelet mean volume (Bld) [Entitic vol] 11.2 fL Normal 7.0-12.0 [facility] RBC 4.57 E12/L Normal 3.80-5.80 [facility] RDW 12.8 fL Normal 11.5-15.0 [facility] WBC 4.3 E9/L Low 4.5-11.5 [facility] CBC with Auto Differentialon 02-02-2023 Basophils (Bld) [#/Vol] 0.03 10*3/uL [facility] Basophils/100 WBC (Bld) 0.7 % 0.0 - 2.0 % [facility] Eosinophils (Bld) [#/Vol] 0.08 10*3/uL [facility] Eosinophils/100 WBC (Bld) 1.9 % 0.0 - 6.0 % [facility] Erythrocyte distribution width (RBC) [Ratio] 12.8 fL 11.5 - 15.0 fL [facility] Hematocrit (Bld) [Volume fraction] 40.0 % 37.0 - 54.0 % [facility] Hemoglobin (Bld) [Mass/Vol] 13.3 g/dL 12.5 - 16.5 g/dL [facility] Immature granulocytes (Bld) [#/Vol] 0.02 10*3/uL E9/L [facility] Immature granulocytes/100 WBC (Bld) 0.5 % 0.0 - 5.0 % [facility] Interpretation and review of laboratory results Abnormal [facility] Lymphocytes (Bld) [#/Vol] 1.03 10*3/uL Low [facility] Lymphocytes/100 WBC (Bld) 24.0 % 20.0 - 42.0 % [facility] MCH (RBC) [Entitic mass] 29.1 pg 26.0 - 35.0 pg [facility] MCHC (RBC) [Mass/Vol] 33.3 % 32.0 - 34.5 % [facility] MCV (RBC) [Entitic vol] 87.5 fL 80.0 - 99.9 fL [facility] Monocytes (Bld) [#/Vol] 0.32 10*3/uL [facility] Monocytes/100 WBC (Bld) 7.4 % 2.0 - 12.0 % [facility] Neutrophils (Bld) [#/Vol] 2.82 10*3/uL [facility] Platelet mean volume (Bld) [Entitic vol] 11.2 fL 7.0 - 12.0 fL [facility] Platelets (Bld) [#/Vol] 147 10*3/uL [facility] RBC (Bld) [#/Vol] 4.57 10*6/uL [facility] Segmented neutrophils/100 WBC (Bld) 65.5 % 43.0 - 80.0 % [facility] WBC (Bld) [#/Vol] 4.3 10*3/uL Low [facility] High Sensitivity Troponin To n 02-02-2023 High Sensitivity Troponin T <6 Normal 0-11 [facility] Comment on above: Result Comment: High Sensitivity Troponin values cannot be compared with other Troponin methodologies. Prothrombin Timeon INR Coag (PPP) [Relative time] 1.1 {INR} Normal [facility] PT Coag (PPP) [Time] 12.0 s Normal 9.3-12.4 [facility] Protime-INRon 02-02-2023 INR Coag (Bld) [Relative time] 1.1 {INR} [facility] PT Coag (PPP) [Time] 12 s [facility] Troponinon 02-02-2023 Troponin, High Sensitivity ng/L 0 - 11 ng/L [facility] Comment on above: High Sensitivity Tro ponin values cannot be compared with other Troponin methodologies. [facility] Alcohol (Ethanol)on 02-02-20 23 Ethanol [Mass/Vol] 51 mg/dL Normal [facility] Comment on above: Result Comment: Not Detected Basic Metabolic Panelon 01-21 Anion gap [Moles/Vol] 17 mmol/L High 7-16 [facility] Calcium [Mass/Vol] 8.2 mg/dL Low 8.6-10.2 [facility] Chloride [Moles/Vol] 105 mmol/L Normal 98-107 [facility] CO2 [Moles/Vol] 20 mmol/L Low 22-29 [facility] Creatinine [Mass/Vol] 1.2 mg/dL Normal 0.7-1.2 [facility] GFR Calculated >60 Normal >=60 [facility] Comment on above: Result Comment: Chaim atric calculator link [email or web address]_[email or web address] Effective Jun 25, 2022 These results are not intended for use in patients <18 years of age. eGFR results are calculated without a race factor using the 2020 CKD-EPI equation. Careful clinical correlation is recommended, particularly when comparing to results calculated using previous equations. The CKD-EPI equation is less accurate in patients with extremes of muscle mass, extra-renal metabolism of creatinine, excessive creatinine ingestion, or following therapy that affects renal tubular secretion. Glucose [Mass/Vol] 104 mg/dL High 74-99 [facility] Potassium [Moles/Vol] 4.2 mmol/L Normal 3.5-5.0 [facility] Sodium [Moles/Vol] 142 mmol/L Normal 132-146 [facility] Urea nitrogen [Mass/Vol] 16 mg/dL Normal 6-20 [facility] Basic Metabolic Panel Reflex Mgon 02-01-2023 Anion gap [Moles/Vol] 7 mmol/L Normal 7-16 [facility] Calcium [Mass/Vol] 8.9 mg/dL Normal 8.6-10.2 [facility] Chloride [Moles/Vol] 104 mmol/L Normal 98-107 [facility] CO2 [Moles/Vol] 26 mmol/L Normal 22-29 [facility] Creatinine [Mass/Vol] 1.1 mg/dL Normal 0.7-1.2 [facility] GFR Calculated >60 Normal >=60 [facility] Comment on above: Result Comment: Chaim atric calculator link [email or web address]_[email or web address] Effective Jun 25, 2022 These results are not intended for use in patients <18 years of age. eGFR results are calculated without a race factor using the 2020 CKD-EPI equation. Careful clinical correlation is recommended, particularly when comparing to results calculated using previous equations. The CKD-EPI equation is less accurate in patients with extremes of muscle mass, extra-renal metabolism of creatinine, excessive creatinine ingestion, or following therapy that affects renal tubular secretion. Glucose [Mass/Vol] 102 mg/dL High 74-99 [facility] Magnesium [Moles/Vol] 4.8 mmol/L Normal 3.5-5.0 [facility] Sodium [Moles/Vol] 137 mmol/L Normal 132-146 [facility] Urea nitrogen [Mass/Vol] 19 mg/dL Normal 6-20 [facility] Basic metabolic 2000 panelon 02-01-2023 Anion gap [Moles/Vol] 7 mmol/L 7 - 16 mmol/L [facility] Calcium [Mass/Vol] 8.9 mg/dL 8.6 - 10. 2 mg/dL [facility] [employer] Chloride [Moles/Vol] 104 mmol/L 98 - 10 7 mmol/L [facility] CO2 [Moles/Vol] 26 mmol/L 22 - 29 mmol/L [facility] Creatinine [Mass/Vol] 1.1 mg/dL 0.7 - 1.2 mg/dL [facility] GFR/1.73 sq M.predicted among non-blacks MDRD (S/P/Bld) [Vol rate/Area] mL/min/1.73 60 - PINF mL/min/1.73 [facility] Comment on above: Pediatric calculator link [email or web address]/[email or web address]_[email or web address] Effective Jun 25, 2022 These results are not intended for use in patients <18 years of age. eGFR results are calculated without a race factor using the 2020 CKD-EPI equation. Careful clinical correlation is recommended, particularly when comparing to results calculated using previous equations. The CKD-EPI equation is less accurate in patients with extremes of muscle mass, extra-renal metabolism of creatinine, excessive creatinine ingestion, or following therapy that affects renal tubular secretion. Glucose [Mass/Vol] 102 mg/dL High 74 - 99 mg/dL [facility] Interpretation and review of laboratory results Abnormal [facility] Potassium [Moles/Vol] 4.8 mmol/L 3.5 - 5.0 mmol/L [facility] Sodium [Moles/Vol] 137 mmol/L 132 - 146 mmol/L [facility] Urea nitrogen [Mass/Vol] 19 mg/dL 6 - 20 mg/dL [facility] Anion gap [Moles/Vol] 17 mmol/L High 7 - 16 mmol/L [facility] Calcium [Mass/Vol] 8.2 mg/dL Low 8.6 - 10. 2 mg/dL [facility] Chloride [Moles/Vol] 105 mmol/L 98 - 10 7 mmol/L [facility] CO2 [Moles/Vol] 20 mmol/L Low 22 - 29 mmol/L [facility] Creatinine [Mass/Vol] 1.2 mg/dL 0.7 - 1.2 mg/dL [facility] GFR/1.73 sq M.predicted among non-blacks MDRD (S/P/Bld) [Vol rate/Area] mL/min/1.73 60 - PINF mL/min/1.73 [facility] Comment on above: Pediatric calculator link [email or web address]_[email or web address] Effective Jun 25, 2022 These results are not intended for use in patients <18 years of age. eGFR results are calculated without a race factor using the 2020 CKD-EPI equation. Careful clinical correlation is recommended, particularly when comparing to results calculated using previous equations. The CKD-EPI equation is less accurate in patients with extremes of muscle mass, extra-renal metabolism of creatinine, excessive creatinine ingestion, or following therapy that affects renal tubular secretion. Glucose [Mass/Vol] 104 mg/dL High 74 - 99 mg/dL [facility] Interpretation and review of laboratory results Abnormal [facility] Potassium [Moles/Vol] 4.2 mmol/L 3.5 - 5.0 mmol/L [facility] Sodium [Moles/Vol] 142 mmol/L 132 - 146 mmol/L [facility] Urea nitrogen [Mass/Vol] 16 mg/dL 6 - 20 mg/dL [facility] CBC With Platelet and Differ entialon 02-01-2023 Abs Imm Granulocytes 0.03 E9/L Normal [facility] Absolute Basophils 0.01 E9/L Normal 0.00-0.20 [facility] Absolute Eosinophils 0.04 E9/L Low 0.05-0.50 [facility] Absolute Lymphocytes 0.71 E9/L Low 1.50-4.00 [facility] Absolute Monocytes 0.29 E9/L Normal 0.10-0.95 [facility] Absolute Neutrophils 2.67 E9/L Normal 1.80-7.30 [facility] Basophils/100 WBC (Bld) 0.3 % Normal 0.0-2.0 [facility] Eosinophils/100 WBC (Bld) 1.1 % Normal 0.0-6.0 [facility] Hematocrit (Bld) [Volume fraction] 39.3 % Normal 37.0-54.0 [facility] Hemoglobin (Bld) [Mass/Vol] 12.9 g/dL Normal 12.5-16.5 [facility] Imm Granulocytes 0.8 % Normal 0.0-5.0 [facility] Lymphocytes/100 WBC (Bld) 18.9 % Low 20.0-42.0 [facility] MCH (RBC) [Entitic mass] 29.1 pg Normal 26.0-35.0 [facility] MCHC 32.8 % Normal 32.0-34.5 [facility] MCV (RBC) [Entitic vol] 88.5 fL Normal 80.0-99.9 [facility] Monocytes/100 WBC (Bld) 7.7 % Normal 2.0-12.0 [facility] Neutrophils/100 WBC (Bld) 71.2 % Normal 43.0-80.0 [facility] Platelet Count 131 E9/L Normal 130-450 [facility] Platelet mean volume (Bld) [Entitic vol] 11.1 fL Normal 7.0-12.0 [facility] RBC 4.44 E12/L Normal 3.80-5.80 [facility] RDW 12.8 fL Normal 11.5-15.0 [facility] WBC 3.8 E9/L Low 4.5-11.5 [facility] Abs Imm Granulocytes 0.02 E9/L Normal [facility] Absolute Basophils 0.02 E9/L Normal 0.00-0.20 [facility] Absolute Eosinophils 0.12 E9/L Normal 0.05-0.50 [facility] Absolute Lymphocytes 1.39 E9/L Low 1.50-4.00 [facility] Absolute Monocytes 0.32 E9/L Normal 0.10-0.95 [facility] Absolute Neutrophils 2.38 E9/L Normal 1.80-7.30 [facility] Basophils/100 WBC (Bld) 0.5 % Normal 0.0-2.0 [facility] Eosinophils/100 WBC (Bld) 2.8 % Normal 0.0-6.0 [facility] Hematocrit (Bld) [Volume fraction] 37.8 % Normal 37.0-54.0 [facility] Hemoglobin (Bld) [Mass/Vol] 13.0 g/dL Normal 12.5-16.5 [facility] Imm Granulocytes 0.5 % Normal 0.0-5.0 [facility] Lymphocytes/100 WBC (Bld) 32.7 % Normal 20.0-42.0 [facility] MCH (RBC) [Entitic mass] 29.8 pg Normal 26.0-35.0 [facility] MCHC 34.4 % Normal 32.0-34.5 [facility] MCV (RBC) [Entitic vol] 86.7 fL Normal 80.0-99.9 [facility] Monocytes/100 WBC (Bld) 7.5 % Normal 2.0-12.0 [facility] Neutrophils/100 WBC (Bld) 56.0 % Normal 43.0-80.0 [facility] Platelet Count 156 E9/L Normal 130-450 [facility] Platelet mean volume (Bld) [Entitic vol] 10.7 fL Normal 7.0-12.0 [facility] RBC 4.36 E12/L Normal 3.80-5.80 [facility] RDW 12.9 fL Normal 11.5-15.0 [facility] WBC 4.3 E9/L Low 4.5-11.5 [facility] CBC with Auto Differentialon 02-01-2023 Basophils (Bld) [#/Vol] 0.01 10*3/uL [facility] Basophils/100 WBC (Bld) 0.3 % 0.0 - 2.0 % [facility] Eosinophils (Bld) [#/Vol] 0.04 10*3/uL Low [facility] Eosinophils/100 WBC (Bld) 1.1 % 0.0 - 6.0 % [facility] Erythrocyte distribution width (RBC) [Ratio] 12.8 fL 11.5 - 15.0 fL [facility] Hematocrit (Bld) [Volume fraction] 39.3 % 37.0 - 54.0 % [facility] Hemoglobin (Bld) [Mass/Vol] 12.9 g/dL 12.5 - 16.5 g/dL [facility] Immature granulocytes (Bld) [#/Vol] 0.03 10*3/uL E9/L [facility] Immature granulocytes/100 WBC (Bld) 0.8 % 0.0 - 5.0 % [facility] Interpretation and review of laboratory results Abnormal [facility] Lymphocytes (Bld) [#/Vol] 0.71 10*3/uL Low [facility] Lymphocytes/100 WBC (Bld) 18.9 % Low 20.0 - 42.0 % [facility] MCH (RBC) [Entitic mass] 29.1 pg 26.0 - 35.0 pg [facility] MCHC (RBC) [Mass/Vol] 32.8 % 32.0 - 34.5 % [facility] MCV (RBC) [Entitic vol] 88.5 fL 80.0 - 99.9 fL [facility] Monocytes (Bld) [#/Vol] 0.29 10*3/uL [facility] Monocytes/100 WBC (Bld) 7.7 % 2.0 - 12.0 % [facility] Neutrophils (Bld) [#/Vol] 2.67 10*3/uL [facility] Platelet mean volume (Bld) [Entitic vol] 11.1 fL 7.0 - 12.0 fL [facility] Platelets (Bld) [#/Vol] 131 10*3/uL [facility] RBC (Bld) [#/Vol] 4.44 10*6/uL [facility] Segmented neutrophils/100 WBC (Bld) 71.2 % 43.0 - 80.0 % [facility] WBC (Bld) [#/Vol] 3.8 10*3/uL Low [facility] Basophils (Bld) [#/Vol] 0.02 10*3/uL [facility] Basophils/100 WBC (Bld) 0.5 % 0.0 - 2.0 % [facility] Eosinophils (Bld) [#/Vol] 0.12 10*3/uL [facility] Eosinophils/100 WBC (Bld) 2.8 % 0.0 - 6.0 % [facility] Erythrocyte distribution width (RBC) [Ratio] 12.9 fL 11.5 - 15.0 fL [facility] Hematocrit (Bld) [Volume fraction] 37.8 % 37.0 - 54.0 % [facility] Hemoglobin (Bld) [Mass/Vol] 13.0 g/dL 12.5 - 16.5 g/dL [facility] Immature granulocytes (Bld) [#/Vol] 0.02 10*3/uL E9/L [facility] Immature granulocytes/100 WBC (Bld) 0.5 % 0.0 - 5.0 % [facility] Interpretation and review of laboratory results Abnormal [facility] Lymphocytes (Bld) [#/Vol] 1.39 10*3/uL Low [facility] Lymphocytes/100 WBC (Bld) 32.7 % 20.0 - 42.0 % [facility] MCH (RBC) [Entitic mass] 29.8 pg 26.0 - 35.0 pg [facility] MCHC (RBC) [Mass/Vol] 34.4 % 32.0 - 34.5 % [facility] MCV (RBC) [Entitic vol] 86.7 fL 80.0 - 99.9 fL [facility] Monocytes (Bld) [#/Vol] 0.32 10*3/uL [facility] Monocytes/100 WBC (Bld) 7.5 % 2.0 - 12.0 % [facility] Neutrophils (Bld) [#/Vol] 2.38 10*3/uL [facility] Platelet mean volume (Bld) [Entitic vol] 10.7 fL 7.0 - 12.0 fL [facility] Platelets (Bld) [#/Vol] 156 10*3/uL [facility] RBC (Bld) [#/Vol] 4.36 10*6/uL [facility] Segmented neutrophils/100 WBC (Bld) 56.0 % 43.0 - 80.0 % [facility] WBC (Bld) [#/Vol] 4.3 10*3/uL Low [facility] CTA ABDOMEN PELVIS W CONTRAS Ton 02-01-2023 CTA ABDOMEN PELVIS W CONTRAST EXAMINATION: CTA OF THE ABDOMEN AND PELVIS WITH CONTRAST 02/01/2023 10:33 am: TECHNIQUE: CTA of the abdomen and pelvis was performed with the administration of intravenous contrast. Multiplanar reformatted images are provided for review. MIP images are provided for review. Automated exposure control, iterative reconstruction, and/or weight based adjustment of the mA/kV was utilized to reduce the radiation dose to as low as reasonably achievable. COMPARISON: None. HISTORY: ORDERING SYSTEM PROVIDED HISTORY: hx of aneurysm, abd pain TECHNOLOGIST PROVIDED HISTORY: Reason for exam:->hx of aneurysm, abd pain Decision Support Exception - unselect if not a suspected or confirmed emergency medical condition->Emergency Medical Condition ([place]) What reading provider will be dictating this exam?->CRC FINDINGS: CTA ABDOMEN: Abdominal upper abdominal aorta is nonaneurysmal. There is a normal origin of the celiac artery, SMA, right renal artery. Slight fusiform dilatation of the left main renal artery 1 cm distal to its origin. No evidence of high-grade stenosis. No calcific or atheromatous plaque identified. There are no other imaging features to suggest fibromuscular dysplasia. No renal artery aneurysms identified. Organs: Liver appears normal in size without focal lesion. Spleen is normal. The adrenal glands are normal. Normal pancreas. Gallbladder and bile ducts are unremarkable. Kidneys demonstrate corticomedullary enhancement with multiple bilateral renal cortical cysts. A probable hemorrhagic cyst is noted in the posterior right kidney measuring 14 mm in diameter pre contrast images demonstrate probable right lower pole nephrocalcinosis. No renal obstruction. The ureters appear somewhat uniformly distended in the mid to distal region without obstruction. Urinary bladder appears normal. GI/Bowel: No evidence of bowel obstruction. No mesenteric adenopathy or mass identified. Liquid stool is noted in the right and transverse colon. There is mild wall thickening of the anal rectal junction. Normal appendix. Peritoneum/Retroperitone um: No retroperitoneal pathologic adenopathy or mass. Bones/Soft Tissues: No acute abnormality of the visualized osseous structures. CTA PELVIS: Aorta/Iliacs: Normal diameter of the inferior mesenteric artery. KESHAWN is slightly tortuous. Normal appearance of the right left common iliac vessels, external iliac vessels. No evidence of arterial dissection or stenosis. Other: No free pelvic fluid. Urinary bladder and prostate gland appear normal. Bones/Soft Tissues: Osseous structures are within normal limits. Subcutaneous structures appear unremarkable. IMPRESSION: 1. No CT evidence of abdominal aortic aneurysm. No evidence of aortic dissection. 2. Slightly lobulated appearance of the left renal artery, consider nonemergent renal artery Doppler evaluation if the patient has a history of hypertension. 3. Gas fluid levels and liquid stool in the right and transverse colon. Findings are compatible with a diarrheal process in the proper clinical setting. Interpreted by: Howard Pederson MD Signed by: Howard Pederson MD 02/01/23 Final result Normal [facility] Comment on above: Order Comment: Reaso n for exam:->hx of aneurysm, abd painDecision Support Exception - unselect if not a suspected or confirmed emergency medical condition->Emergency Medical Condition ([place])What reading provider will be dictating this exam?->CRC 1. No CT evidence of abdominal aortic aneurysm. No evidence of aortic dissection. 2. Slightly lobulated appearance of the left renal artery, consider nonemergent renal artery Doppler evaluation if the patient has a history of hypertension. 3. Gas fluid levels and liquid stool in the right and transverse colon. Findings are compatible with a diarrheal process in the proper clinical setting. [facility] EXAMINATION: CTA OF THE ABDOMEN AND PELVIS WITH CONTRAST 02/01/2023 10:33 am: TECHNIQUE: CTA of the abdomen and pelvis was performed with the administration of intravenous contrast. Multiplanar reformatted images are provided for review. MIP images are provided for review. Automated exposure control, iterative reconstruction, and/or weight based adjustment of the mA/kV was utilized to reduce the radiation dose to as low as reasonably achievable. COMPARISON: None. HISTORY: ORDERING SYSTEM PROVIDED HISTORY: hx of aneurysm, abd pain TECHNOLOGIST PROVIDED HISTORY: Reason for exam:->hx of aneurysm, abd pain Decision Support Exception - unselect if not a suspected or confirmed emergency medical condition->Emergency Medical Condition ([place]) What reading provider will be dictating this exam?->CRC FINDINGS: CTA ABDOMEN: Abdominal upper abdominal aorta is nonaneurysmal. There is a normal origin of the celiac artery, SMA, right renal artery. Slight fusiform dilatation of the left main renal artery 1 cm distal to its origin. No evidence of high-grade stenosis. No calcific or atheromatous plaque identified. There are no other imaging features to suggest fibromuscular dysplasia. No renal artery aneurysms identified. Organs: Liver appears normal in size without focal lesion. Spleen is normal. The adrenal glands are normal. Normal pancreas. Gallbladder and bile ducts are unremarkable. Kidneys demonstrate corticomedullary enhancement with multiple bilateral renal cortical cysts. A probable hemorrhagic cyst is noted in the posterior right kidney measuring 14 mm in diameter pre contrast images demonstrate probable right lower pole nephrocalcinosis. No renal obstruction. The ureters appear somewhat uniformly distended in the mid to distal region without obstruction. Urinary bladder appears normal. GI/Bowel: No evidence of bowel obstruction. No mesenteric adenopathy or mass identified. Liquid stool is noted in the right and transverse colon. There is mild wall thickening of the anal rectal junction. Normal appendix. Peritoneum/Retroperitone um: No retroperitoneal pathologic adenopathy or mass. Bones/Soft Tissues: No acute abnormality of the visualized osseous structures. CTA PELVIS: Aorta/Iliacs: Normal diameter of the inferior mesenteric artery. KESHAWN is slightly tortuous. Normal appearance of the right left common iliac vessels, external iliac vessels. No evidence of arterial dissection or stenosis. Other: No free pelvic fluid. Urinary bladder and prostate gland appear normal. Bones/Soft Tissues: Osseous structures are within normal limits. Subcutaneous structures appear unremarkable. [facility] Howard Pederson MD - 02/01/2023 EXAMINATION: CTA OF THE ABDOMEN AND PELVIS WITH CONTRAST 02/01/2023 10:33 am: TECHNIQUE: CTA of the abdomen and pelvis was performed with the administration of intravenous contrast. Multiplanar reformatted images are provided for review. MIP images are provided for review. Automated exposure control, iterative reconstruction, and/or weight based adjustment of the mA/kV was utilized to reduce the radiation dose to as low as reasonably achievable. COMPARISON: None. HISTORY: ORDERING SYSTEM PROVIDED HISTORY: hx of aneurysm, abd pain TECHNOLOGIST PROVIDED HISTORY: Reason for exam:->hx of aneurysm, abd pain Decision Support Exception - unselect if not a suspected or confirmed emergency medical condition->Emergency Medical Condition ([place]) What reading provider will be dictating this exam?->CRC FINDINGS: CTA ABDOMEN: Abdominal upper abdominal aorta is nonaneurysmal. There is a normal origin of the celiac artery, SMA, right renal artery. Slight fusiform dilatation of the left main renal artery 1 cm distal to its origin. No evidence of high-grade stenosis. No calcific or atheromatous plaque identified. There are no other imaging features to suggest fibromuscular dysplasia. No renal artery aneurysms identified. Organs: Liver appears normal in size without focal lesion. Spleen is normal. The adrenal glands are normal. Normal pancreas. Gallbladder and bile ducts are unremarkable. Kidneys demonstrate corticomedullary enhancement with multiple bilateral renal cortical cysts. A probable hemorrhagic cyst is noted in the posterior right kidney measuring 14 mm in diameter pre contrast images demonstrate probable right lower pole nephrocalcinosis. No renal obstruction. The ureters appear somewhat uniformly distended in the mid to distal region without obstruction. Urinary bladder appears normal. GI/Bowel: No evidence of bowel obstruction. No mesenteric adenopathy or mass identified. Liquid stool is noted in the right and transverse colon. There is mild wall thickening of the anal rectal junction. Normal appendix. Peritoneum/Retroperitone um: No retroperitoneal pathologic adenopathy or mass. Bones/Soft Tissues: No acute abnormality of the visualized osseous structures. CTA PELVIS: Aorta/Iliacs: Normal diameter of the inferior mesenteric artery. KESHAWN is slightly tortuous. Normal appearance of the right left common iliac vessels, external iliac vessels. No evidence of arterial dissection or stenosis. Other: No free pelvic fluid. Urinary bladder and prostate gland appear normal. Bones/Soft Tissues: Osseous structures are within normal limits. Subcutaneous structures appear unremarkable. IMPRESSION: 1. No CT evidence of abdominal aortic aneurysm. No evidence of aortic dissection. 2. Slightly lobulated appearance of the left renal artery, consider nonemergent renal artery Doppler evaluation if the patient has a history of hypertension. 3. Gas fluid levels and liquid stool in the right and transverse colon. Findings are compatible with a diarrheal process in the proper clinical setting. [facility] [employer] Work Phone: CTA ABDOMEN PELVIS W CONTRAS TOrdered By: Howard Pederson on 02-01-2023 [facility] Work Phone: CTA CHEST W CONTRASTon 02-01 CTA CHEST W CONTRAST EXAMINATION: CTA OF THE CHEST 02/01/2023 10:33 am TECHNIQUE: CTA of the chest was performed after the administration of intravenous contrast. Multiplanar reformatted images are provided for review. MIP images are provided for review. Automated exposure control, iterative reconstruction, and/or weight based adjustment of the mA/kV was utilized to reduce the radiation dose to as low as reasonably achievable. 3D MIP, MPR images were obtained from axial data. 3D surface shaded display image of the thoracic and abdominal aorta was performed. COMPARISON: 11/05/2013 HISTORY: ORDERING SYSTEM PROVIDED HISTORY: hx of aneurysm, pain TECHNOLOGIST PROVIDED HISTORY: Reason for exam:->hx of aneurysm, pain Decision Support Exception - unselect if not a suspected or confirmed emergency medical condition->Emergency Medical Condition ([place]) What reading provider will be dictating this exam?->CRC FINDINGS: Aorta: There is fusiform aneurysmal dilatation of the ascending aorta measuring up to 5.1 cm. No evidence of aortic dissection. Descending thoracic aorta is normal. Mediastinum: No evidence of mediastinal lymphadenopathy. There is mild cardiomegaly with dilatation of the left ventricle. No filling defects in the pulmonary arteries. No evidence of significant axillary or hilar adenopathy. Lungs/Pleura: The lungs are without acute process. No focal consolidation or pulmonary edema. No evidence of pleural effusion or pneumothorax. Upper Abdomen: Limited images of the upper abdomen are unremarkable. Soft Tissues/Bones: No acute bone or soft tissue abnormality. IMPRESSION: 1. Fusiform aneurysmal dilatation of the ascending aorta measuring up to 5.1 cm at the level of the main pulmonary artery, increased from approximately 43 mm on the study of 2013 when measured in a similar fashion. 2. No evidence of aortic dissection. Normal descending thoracic aorta. 3. Cardiomegaly and mildly dilated left ventricle. Interpreted by: Howard Pederson MD Signed by: Howard Pederson MD 02/01/23 Final result Normal [facility] Comment on above: Order Comment: Reaso n for exam:->hx of aneurysm, painDecision Support Exception - unselect if not a suspected or confirmed emergency medical condition->Emergency Medical Condition (MA)What reading provider will be dictating this exam?->CRC 1. Fusiform aneurysm al dilatation of the ascending aorta measuring up to 5.1 cm at the level of the main pulmonary artery, increased from approximately 43 mm on the study of 2013 when measured in a similar fashion. 2. No evidence of aortic dissection. Normal descending thoracic aorta. 3. Cardiomegaly and mildly dilated left ventricle. [facility] EXAMINATION: CTA OF THE CHEST 02/01/2023 10:33 am TECHNIQUE: CTA of the chest was performed after the administration of intravenous contrast. Multiplanar reformatted images are provided for review. MIP images are provided for review. Automated exposure control, iterative reconstruction, and/or weight based adjustment of the mA/kV was utilized to reduce the radiation dose to as low as reasonably achievable. 3D MIP, MPR images were obtained from axial data. 3D surface shaded display image of the thoracic and abdominal aorta was performed. COMPARISON: 11/05/2013 HISTORY: ORDERING SYSTEM PROVIDED HISTORY: hx of aneurysm, pain TECHNOLOGIST PROVIDED HISTORY: Reason for exam:->hx of aneurysm, pain Decision Support Exception - unselect if not a suspected or confirmed emergency medical condition->Emergency Medical Condition (MA) What reading provider will be dictating this exam?->CRC FINDINGS: Aorta: There is fusiform aneurysmal dilatation of the ascending aorta measuring up to 5.1 cm. No evidence of aortic dissection. Descending thoracic aorta is normal. Mediastinum: No evidence of mediastinal lymphadenopathy. There is mild cardiomegaly with dilatation of the left ventricle. No filling defects in the pulmonary arteries. No evidence of significant axillary or hilar adenopathy. Lungs/Pleura: The lungs are without acute process. No focal consolidation or pulmonary edema. No evidence of pleural effusion or pneumothorax. Upper Abdomen: Limited images of the upper abdomen are unremarkable. Soft Tissues/Bones: No acute bone or soft tissue abnormality. [facility] Howard Pederson MD - 02/01/2023 EXAMINATION: CTA OF THE CHEST 02/01/2023 10:33 am TECHNIQUE: CTA of the chest was performed after the administration of intravenous contrast. Multiplanar reformatted images are provided for review. MIP images are provided for review. Automated exposure control, iterative reconstruction, and/or weight based adjustment of the mA/kV was utilized to reduce the radiation dose to as low as reasonably achievable. 3D MIP, MPR images were obtained from axial data. 3D surface shaded display image of the thoracic and abdominal aorta was performed. COMPARISON: 11/05/2013 HISTORY: ORDERING SYSTEM PROVIDED HISTORY: hx of aneurysm, pain TECHNOLOGIST PROVIDED HISTORY: Reason for exam:->hx of aneurysm, pain Decision Support Exception - unselect if not a suspected or confirmed emergency medical condition->Emergency Medical Condition (MA) What reading provider will be dictating this exam?->CRC FINDINGS: Aorta: There is fusiform aneurysmal dilatation of the ascending aorta measuring up to 5.1 cm. No evidence of aortic dissection. Descending thoracic aorta is normal. Mediastinum: No evidence of mediastinal lymphadenopathy. There is mild cardiomegaly with dilatation of the left ventricle. No filling defects in the pulmonary arteries. No evidence of significant axillary or hilar adenopathy. Lungs/Pleura: The lungs are without acute process. No focal consolidation or pulmonary edema. No evidence of pleural effusion or pneumothorax. Upper Abdomen: Limited images of the upper abdomen are unremarkable. Soft Tissues/Bones: No acute bone or soft tissue abnormality. IMPRESSION: 1. Fusiform aneurysmal dilatation of the ascending aorta measuring up to 5.1 cm at the level of the main pulmonary artery, increased from approximately 43 mm on the study of 2013 when measured in a similar fashion. 2. No evidence of aortic dissection. Normal descending thoracic aorta. 3. Cardiomegaly and mildly dilated left ventricle. [facility] Work Phone: [facility] Work Phone: Comprehensive Metabolic Pane l reflex Mgon 02-01-2023 Albumin [Mass/Vol] 4.0 g/dL Normal 3.5-5.2 [facility] ALP [Catalytic activity/Vol] 63 U/L Normal 40-129 [facility] ALT [Catalytic activity/Vol] 31 U/L Normal 0-40 [facility] Anion gap [Moles/Vol] 20 mmol/L High 7-16 Rl [facility] AST [Catalytic activity/Vol] 22 U/L Normal 0-39 [facility] Bilirubin [Mass/Vol] 0.3 mg/dL Normal 0.0-1.2 [facility] Calcium [Mass/Vol] 8.6 mg/dL Normal 8.6-10.2 [facility] Chloride [Moles/Vol] 97 mmol/L Low 98-107 [facility] CO2 [Moles/Vol] 19 mmol/L Low 22-29 [facility] Creatinine [Mass/Vol] 1.3 mg/dL High 0.7-1.2 [facility] GFR Calculated >60 Normal >=60 [facility] Comment on above: Result Comment: Chaim atric calculator link https://www.kidney.org/professionals/kdoqi/gfr_calculatorped Effective Jun 25, 2022 These results are not intended for use in patients <18 years of age. eGFR results are calculated without a race factor using the 2020 CKD-EPI equation. Careful clinical correlation is recommended, particularly when comparing to results calculated using previous equations. The CKD-EPI equation is less accurate in patients with extremes of muscle mass, extra-renal metabolism of creatinine, excessive creatinine ingestion, or following therapy that affects renal tubular secretion. Glucose [Mass/Vol] 116 mg/dL High 74-99 [facility] Magnesium [Moles/Vol] 3.2 mmol/L Low 3.5-5.0 [facility] Protein [Mass/Vol] 6.7 g/dL Normal 6.4-8.3 [facility] Sodium [Moles/Vol] 136 mmol/L Normal 132-146 [facility] Urea nitrogen [Mass/Vol] 16 mg/dL Normal 6-20 [facility] Comprehensive metabolic 2000 panelon 02-01-2023 Albumin [Mass/Vol] 4 g/dL 3.5 - 5.2 g/dL [facility] ALP [Catalytic activity/Vol] 63 U/L 40 - 129 U/L [facility] ALT [Catalytic activity/Vol] 31 U/L 0 - 40 U/L [facility] Anion gap [Moles/Vol] 20 mmol/L High 7 - 16 mmol/L [facility] AST [Catalytic activity/Vol] 22 U/L 0 - 39 U/L [facility] Bilirubin [Mass/Vol] 0.3 mg/dL 0.0 - 1 .2 mg/dL [facility] Calcium [Mass/Vol] 8.6 mg/dL 8.6 - 10. 2 mg/dL [facility] Chloride [Moles/Vol] 97 mmol/L Low 98 - 10 7 mmol/L [facility] CO2 [Moles/Vol] 19 mmol/L Low 22 - 29 mmol/L [facility] Creatinine [Mass/Vol] 1.3 mg/dL High 0.7 - 1.2 mg/dL [facility] GFR/1.73 sq M.predicted among non-blacks MDRD (S/P/Bld) [Vol rate/Area] mL/min/1.73 60 - PINF mL/min/1.73 [facility] Comment on above: Pediatric calculator link https://www.kidney.org/professionals/kdoqi/gfr_calculatorped Effective Jun 25, 2022 These results are not intended for use in patients <18 years of age. eGFR results are calculated without a race factor using the 2020 CKD-EPI equation. Careful clinical correlation is recommended, particularly when comparing to results calculated using previous equations. The CKD-EPI equation is less accurate in patients with extremes of muscle mass, extra-renal metabolism of creatinine, excessive creatinine ingestion, or following therapy that affects renal tubular secretion. Glucose [Mass/Vol] 116 mg/dL High 74 - 99 mg/dL [facility] Interpretation and review of laboratory results Abnormal [facility] Potassium [Moles/Vol] 3.2 mmol/L Low 3.5 - 5.0 mmol/L [facility] Protein [Mass/Vol] 6.7 g/dL 6.4 - 8.3 g/dL [facility] Sodium [Moles/Vol] 136 mmol/L 132 - 146 mmol/L [facility] Urea nitrogen [Mass/Vol] 16 mg/dL 6 - 20 mg/dL [facility] EKG 12 LeadOrdered By: Rhona Davies on 02-01-2023 Atrial Rate 74 BPM [employer] [email or web address] Work Phone: P [place] 45 degrees [employer] Work Phone: P-R Interval 186 ms [employer] Work Phone: Q-T Interval 362 ms [employer] Work Phone: QRS Duration 98 ms [email or web address] Work Phone: QTc Calculation (Bazett) 401 ms [employer] Work Phone: R [place] 1 degrees [email or web address] Work Phone: T [place] 18 degrees [employer] Work Phone: Ventricular Rate 74 BPM [employer] [employer] ([place]og[place]) Work Phone: [email or web address] Work Phone: EKG 12 Leadon 02-01-2023 Normal sinus rhythm Normal ECG When compared with ECG of 01-FEB-2023 00:11, No significant change was found Confirmed by Cody Davies () on 02/01/2023 5:24:53 PM [facility] Cody Davies D O - 02/01/2023 Normal sinus rhythm Normal ECG When compared with ECG of 01-FEB-2023 00:11, No significant change was found Confirmed by Cody Davies () on 02/01/2023 5:24:53 PM [employer] Work Phone: Ethanolon 02-01-2023 Ethanolamine [Mass/Vol] 51 mg/dL [employer] Comment on above: Not Detected Ethanolamine [Mass/Vol]on [employer] Hepatic Function Panelon Albumin [Mass/Vol] 4.2 g/dL 3.5 - 5.2 g/dL [employer] ALP [Catalytic activity/Vol] 72 U/L 40 - 129 U/L [employer] ALT [Catalytic activity/Vol] 30 U/L 0 - 40 U/L [facility] AST [Catalytic activity/Vol] 21 U/L 0 - 39 U/L [facility] Bilirubin [Mass/Vol] 0.3 mg/dL 0.0 - 1 .2 mg/dL [facility] Bilirubin.direct [Mass/Vol] mg/dL 0.0 - 0.3 mg/dL [facility] Bilirubin.indirect [Mass/Vol] see below 0.0 - 1.0 mg/dL [facility] Comment on above: Indirect Bilirubin c annot be calculated since Total Bilirubin and/or Direct Bilirubin is below measurable range. Protein [Mass/Vol] 7.0 g/dL 6.4 - 8.3 g/dL [facility] High Sensitivity Troponin To n 02-01-2023 High Sensitivity Troponin T <6 Normal 0-11 [facility] Comment on above: Result Comment: High Sensitivity Troponin values cannot be compared with other Troponin methodologies. High Sensitivity Troponin T <6 Normal 0-11 [facility] Comment on above: Result Comment: High Sensitivity Troponin values cannot be compared with other Troponin methodologies. High Sensitivity Troponin T 6 ng/L Normal 0-11 [facility] Comment on above: Result Comment: High Sensitivity Troponin values cannot be compared with other Troponin methodologies. Lactic Acidon 02-01-2023 Lactate [Moles/Vol] 0.8 mmol/L Normal 0.5-2.2 [facility] Lactate (BldV) [Moles/Vol] 0.8 mmol/L 0.5 - 2.2 mmol/L [facility] Lipaseon 02-01-2023 Lipase [Catalytic activity/Vol] 34 U/L Normal 13-60 [facility] Lipase [Catalytic activity/Vol] 34 U/L 13 - 60 U/L [facility] Liver Panelon 02-01-2023 Albumin [Mass/Vol] 4.2 g/dL Normal 3.5-5.2 [facility] ALP [Catalytic activity/Vol] 72 U/L Normal 40-129 [facility] ALT [Catalytic activity/Vol] 30 U/L Normal 0-40 [facility] AST [Catalytic activity/Vol] 21 U/L Normal 0-39 [facility] Bilirubin [Mass/Vol] 0.3 mg/dL Normal 0.0-1.2 [facility] Bilirubin Indirect see below Normal 0.0-1.0 [facility] Comment on above: Result Comment: Julia rect Bilirubin cannot be calculated since Total Bilirubin and/or Direct Bilirubin is below measurable range. Bilirubin.indirect [Mass/Vol] mg/dL Normal 0.0-0.3 [facility] Protein [Mass/Vol] 7.0 g/dL Normal 6.4-8.3 [facility] Magnesiumon 02-01-2023 Magnesium [Mass/Vol] 2.1 mg/dL Normal 1.6-2.6 [facility] Magnesium [Mass/Vol] 2.1 mg/dL 1.6 - 2 .6 mg/dL [facility] [employer] Magnesium [Mass/Vol]on 02-01 [facility] [employer] No Panel Informationon 02-01 Radiology Study observation (narrative) [facility] [employer] Work Phone: [facility] [employer] Serum Drug Screenon 02-02-20 TCA Screen Negative Normal Cutoff:300 [facility] Acetaminophen [Mass/Vol] ug/mL Low 10.0-30.0 [facility] Ethanol [Mass/Vol] mg/dL Normal [facility] Comment on above: Result Comment: Not Detected Salicylate <0.3 Normal 0.0-30.0 [facility] TCA Screen Negative Normal Cutoff:300 [facility] Acetaminophen [Mass/Vol] ug/mL Low [facility] Ethanolamine [Mass/Vol] <10 mg/dL [facility] [employer] Comment on above: Not Detected Interpretation and review of laboratory results Abnormal [facility]Art[facility] MobileBL[facility] Salicylates [Mass/Vol] mg/dL 0.0 - 30.0 mg/dL [facility] [employer] TCA Scrn Negative [facility]Art[facility] MobileFIRSTHEALTH MONTG[facility] HOSPITALArt[facility] [employer] Acetaminophen [Mass/Vol] ug/mL Low 10.0-30.0 [facility] Ethanol [Mass/Vol] 152 mg/dL Normal [facility] Comment on above: Result Comment: Not Detected Salicylate <0.3 Normal 0.0-30.0 [facility] Troponinon 02-01-2023 Troponin, High Sensitivity ng/L 0 - 11 ng/L [facility] Comment on above: High Sensitivity Tro ponin values cannot be compared with other Troponin methodologies. Troponin, High Sensitivity ng/L 0 - 11 ng/L [facility] Comment on above: High Sensitivity Tro ponin values cannot be compared with other Troponin methodologies. [facility] Troponin, High Sensitivity 6 ng/L 0 - 11 ng/L [facility] Comment on above: High Sensitivity Tro ponin values cannot be compared with other Troponin methodologies. [facility] UR Drugs of Abuse Panelon UR Amphetamines Screen Not detected Normal Negative <1000 ng/mL [facility] UR Barbiturates Screen Not detected Normal Negative < 200 ng/mL [facility] UR Benzo Screen Not detected Normal Negative < 200 ng/mL [facility] UR Cannabinoids Screen Not detected Normal Negative < 50ng/mL [facility] UR Cocaine Screen Not detected Normal Negative < 300 ng/mL [facility] UR Fentanyl Screen Not detected Normal Negative <1 ng/mL [facility] UR Methadone Screen Not detected Normal Negative <300 ng/mL [facility] UR Opiates Screen Not detected Normal Negative < 300ng/mL [facility] Comment on above: Result Comment: Note : The Opiate Screen is not intended to detect Oxycodone. UR Oxycodone Screen Not detected Normal Negative <100 ng/mL [facility] UR PCP Screen Not detected Normal Negative < 25 ng/mL [facility] Drug Screen Comment see below Normal [facility] Comment on above: Result Comment: Thes e drug screen results are for medical purposes only and should not be considered definitive or confirmed. The drug methodology concentration value must be greater than or equal to the cutoff to be reported as positive. Confirmatory testing orders and/or interpretive screening questions can be directed to toxicology at [phone]. The absence of expected drug(s) and/or metabolite(s) may be due to inappropriate timing of specimen collection relative to drug administration, poor drug absorption, diluted/adulterated urine, or limitations of screening testing methodology. URINE DRUG SCREENon 02-02-20 23 Amphetamines Ql (U) Not detected Negative <1000 ng/mL [employer] Barbiturates Screen Ql (U) Not detected Negative < 200 ng/mL [employer] Benzodiazepines Ql (U) Not detected Negative < 200 ng/mL [employer] Cannabinoids Screen Ql (U) Not detected Negative < 50ng/mL [employer] Cocaine Ql (U) Not detected Negative < 300 ng/mL [employer] Drug screen comment (U) [Interp] see below [employer] Comment on above: These drug screen re sults are for medical purposes only and should not be considered definitive or confirmed. The drug methodology concentration value must be greater than or equal to the cutoff to be reported as positive. Confirmatory testing orders and/or interpretive screening questions can be directed to toxicology at [phone]. The absence of expected drug(s) and/or metabolite(s) may be due to inappropriate timing of specimen collection relative to drug administration, poor drug absorption, diluted/adulterated urine, or limitations of screening testing methodology. FENTANYL SCREEN, URINE Not detected Negative <1 ng/mL [employer] Methadone Screen Ql (U) Not detected Negative <300 ng/mL [employer] Opiates Screen Ql (U) Not detected Negati ve < 300ng/mL [employer] Comment on above: Note: The Opiate Scr een is not intended to detect Oxycodone. Oxycodone Urine Not detected Negative <100 ng/mL [employer] Phencyclidine Ql (U) Not detected Negativ e < 25 ng/mL [employer] [facility] Urinalysis with Microscopico n 02-01-2023 Bacteria LM Ql (Urine sed) NONE SEEN None Seen /HPF [employer] Bilirubin Ql (U) Negative Negative [facility] [employer] [facility] Clarity (U) Clear Clear [employer] Color (U) Yellow Straw/Yellow [employer] [facility] Glucose Test strip (U) [Mass/Vol] Negative Negative mg/dL [facility] Hemoglobin Ql (U) Negative Negative [facility] Ketones (U) [Mass/Vol] Negative Negative mg/dL [facility] Leukocyte esterase Test strip Ql (U) Negative Negative [facility] Nitrite Ql (U) Negative Negative [facility] pH (U) 5.5 [pH] 5.0 - 9.0 [facility] Protein (U) [Mass/Vol] Negative Negative mg/dL [facility] RBC LM.HPF (Urine sed) [#/Area] NONE [facility] Specific gravity (U) [Rel density] 1.010 1.005 - 1.030 [facility] Urobilinogen Qn (U) 0.2 NINF [facility] WBC LM.HPF (Urine sed) [#/Area] NONE [facility] Urinalysis, with microscopic on 02-01-2023 Urine Bacteria NONE SEEN Normal None Seen [facility] Urine RBC NONE Normal 0-2 [facility] Urine WBC NONE Normal 0-5 [facility] Bilirubin Ql (U) Negative Normal Negative [facility] Clarity (U) Clear Normal Clear [facility] Color (U) Yellow Normal Straw/Yellow [facility] Glucose Ql (U) Negative Normal Negative [facility] Hemoglobin Ql (U) Negative Normal Negative [facility] Ketones Ql (U) Negative Normal Negative [facility] Leukocyte esterase Test strip Ql (U) Negative Normal Negative [facility] Nitrite Ql (U) Negative Normal Negative [facility] pH (U) 5.5 [pH] Normal 5.0-9.0 [facility] Protein Ql (U) Negative Normal Negative [facility] Specific gravity (U) [Rel density] 1.010 Normal 1.005-1.030 [facility] Urobilinogen Qn (U) 0.2 {Gia'U}/dL Normal < 2.0 [facility] ALCOHOLon 01-29-2023 Ethanol [Mass/Vol] mg/dL Normal [facility] Comment on above: Result Comment: FOR MEDICAL USE ONLY. . REF VALUES <10 Performed By: #### A LC #### [address] [address] BASIC METABOLIC PANELon 05-0 Anion gap [Moles/Vol] 11 mmol/L Normal 10 - 20 [facility] Comment on above: Performed By: #### B MP #### [address] [address] Calcium [Mass/Vol] 8.9 mg/dL Normal 8.6 - 10.3 [facility] Comment on above: Performed By: #### B MP #### [address] [address] Chloride [Moles/Vol] 104 mmol/L Normal 98 - 107 [facility] Comment on above: Performed By: #### B MP #### [address] [address] Creatinine [Mass/Vol] 0.97 mg/dL Normal 0.50 - 1.30 Ro [facility] Comment on above: Performed By: #### B MP #### [address] [address] eGFR MALE >90 Normal >90 [facility] Comment on above: Result Comment: CALC ULATIONS OF ESTIMATED GFR ARE PERFORMED USING THE 2020 CKD-EPI STUDY REFIT EQUATION WITHOUT THE RACE VARIABLE FOR THE IDMS-TRACEABLE CREATININE METHODS. https://jasn.asnjournals.org/content/early//ASN.967672 8962 Performed By: #### B MP #### [address] [address] Glucose [Mass/Vol] 115 mg/dL High 74 - 99 [facility] Comment on above: Performed By: #### B MP #### [address] [address] HCO3 (Bld) [Moles/Vol] 25 mmol/L Normal 21 - 32 [facility] Comment on above: Performed By: #### B MP #### [address] [address] Potassium [Moles/Vol] 3.9 mmol/L Normal 3.5 - 5.3 [facility] inson/[facility] Comment on above: Performed By: #### B MP #### [address] [address] Sodium [Moles/Vol] 136 mmol/L Normal 136 - 145 [facility] Comment on above: Performed By: #### B MP #### [address] [address] Urea nitrogen [Mass/Vol] 19 mg/dL Normal 6 - 23 [facility] Comment on above: Performed By: #### B MP #### [address] [address] CBC AND DIFFERENTIALon 01-29 % AUTOMATED IMMATURE GRAN 0.3 % Normal 0.0 - 0.9 [facility] Comment on above: Result Comment: Kath ture Granulocyte Count (IG) includes promyelocytes, myelocytes and metamyelocytes but does not include bands. Percent differential counts (%) should be interpreted in the context of the absolute cell counts (cells/L). Performed By: #### C BCDF #### [address] [address] Basophils (Bld) [#/Vol] 0.02 10*3/uL Normal 0.00 - 0.10 [facility] Comment on above: Performed By: #### C BCDF #### [address] [address] Basophils/100 WBC (Bld) 0.5 % Normal 0.0 - 2.0 [facility] Comment on above: Performed By: #### C BCDF #### [address] [address] Eosinophils (Bld) [#/Vol] 0.10 10*3/uL Normal 0.00 - 0.70 [facility] Comment on above: Performed By: #### C BCDF #### [address] [address] Eosinophils/100 WBC (Bld) 2.7 % Normal 0.0 - 6.0 [facility] Comment on above: Performed By: #### C BCDF #### [address] [address] Erythrocyte distribution width (RBC) [Ratio] 13.0 % Normal 11.5 - 14.5 [facility] Comment on above: Performed By: #### C BCDF #### [address] [address] Hematocrit (Bld) [Volume fraction] 37.2 % Low 41.0 - 52.0 [facility] Comment on above: Performed By: #### C BCDF #### [address] [address] Hemoglobin (Bld) [Mass/Vol] 12.6 g/dL Low 13.5 - 17.5 [facility] Comment on above: Performed By: #### C BCDF #### [address] [address] Lymphocytes (Bld) [#/Vol] 1.12 10*3/uL Low 1.20 - 4.80 [facility] [facility] Comment on above: Performed By: #### C BCDF #### [address] [address] Lymphocytes/100 WBC (Bld) 29.9 % Normal 13.0 - 44.0 [facility] Comment on above: Performed By: #### C BCDF #### [address] [address] MCHC (RBC) [Mass/Vol] 33.9 g/dL Normal 32.0 - 36.0 [facility] Comment on above: Performed By: #### C BCDF #### [address] [address] MCV (RBC) [Entitic vol] 85 fL Normal 80 - 100 [facility] Comment on above: Performed By: #### C BCDF #### [address] [address] Monocytes (Bld) [#/Vol] 0.35 10*3/uL Normal 0.10 - 1.00 [facility] Comment on above: Performed By: #### C BCDF #### [address] [address] Monocytes/100 WBC (Bld) 9.4 % Normal 2.0 - 10.0 [facility] Comment on above: Performed By: #### C BCDF #### [address] [address] Neutrophils (Bld) [#/Vol] 2.14 10*3/uL Normal 1.20 - 7.70 [facility] Comment on above: Performed By: #### C BCDF #### [address] [address] Neutrophils/100 WBC (Bld) 57.2 % Normal 40.0 - 80.0 [facility] Comment on above: Performed By: #### C BCDF #### [address] [address] Platelets (Bld) [#/Vol] 150 10*3/uL Normal 150 - 450 [facility] Comment on above: Performed By: #### C BCDF #### [address] [address] RBC 4.39 x10E12/L Low 4.50 - 5.90 [facility] Comment on above: Performed By: #### C BCDF #### [address] [address] WBC (Bld) [#/Vol] 3.7 10*3/uL Low 4.4 - 11.3 [facility] Comment on above: Performed By: #### C BCDF #### [address] [address] DRUG SCREEN,URINEon 01-30-20 23 AMPHETAMINE SCREEN,U Negative Normal NEGATIVE Naun ns/[facility] Comment on above: Result Comment: CUTO FF LEVEL: 500 NG/ML Cross-reactivity has been reported with high concentrations of the following drugs: buproprion, chloroquine, chlorpromazine, ephedrine, mephentermine, fenfluramine, phentermine, phenylpropanolamine, pseudoephedrine, and propranolol. Performed By: #### D RUG3 #### [place] [address] BARBITURATES SCREEN,U Negative Normal NEGATIVE [facility]: Result Comment: CUTO FF LEVEL: 200 NG/ML Performed By: #### D RUG3 #### [address] [address] BENZODIAZEPINES SCREEN,U Negative Normal NEGATIVE [facility] Comment on above: Result Comment: CUTO FF LEVEL: 200 NG/ML Performed By: #### D RUG3 #### [place] [address] CANNABINOIDS SCREEN,U Negative Normal NEGATIVE Ankit inson/[facility] Comment on above: Result Comment: CUTO FF LEVEL: 50 NG/ML Performed By: #### D RUG3 #### [place] [address] COCAINE METABOLITE SCREEN,U Negative Normal NEGATIVE [facility] Comment on above: Result Comment: CUTO FF LEVEL: 150 NG/ML Performed By: #### D RUG3 #### [place] [address] DRUG SCREEN COMMENT SEE BELOW Normal Salvador son/[facility] Comment on above: Result Comment: Drug screen results are presumptive and should not be used to assess compliance with prescribed medication. Contact the performing [facility] laboratory to add-on definitive confirmatory testing if clinically indicated. . Toxicology screening results are reported qualitatively. The concentration must be greater than or equal to the cutoff to be reported as positive. The concentration at which the screening test can detect an individual drug or metabolite varies. The absence of expected drug(s) and/or drug metabolite(s) may indicate non-compliance, inappropriate timing of specimen collection relative to drug administration, poor drug absorption, diluted/adulterated urine, or limitations of testing. For medical purposes only; not valid for forensic use. . Interpretive questions should be directed to the laboratory medical directors. Performed By: #### D RUG3 #### [place] [address] FENTANYL SCREEN,URINE Negative Normal NEGATIVE Ankit inson/[facility] Comment on above: Result Comment: CUTO FF LEVEL: 5 NG/ML Performed By: #### D RUG3 #### [place] [address] METHADONE SCREEN,U Negative Normal NEGATIVE [place] on/[facility] Comment on above: Result Comment: CUTO FF LEVEL: 150 NG/ML The metabolite U-sjmgn-lrhmphrcyzuitf (LAAM) is not detected by this method in concentrations that would be found in the urine of patients on LAAM therapy. Performed By: #### D RUG3 #### [place] [address] OPIATES SCREEN,U Negative Normal NEGATIVE [place] /[facility] Comment on above: Result Comment: CUTO FF LEVEL: 300 NG/ML The opiate screen does not detect fentanyl, meperidine, or tramadol. Oxycodone is not consistently detected (refer to Oxycodone Screen, Urine result). Performed By: #### D RUG3 #### [place] [address] OXYCODONE SCREEN,U Negative Normal NEGATIVE [place] on/[facility] Comment on above: Result Comment: CUTO FF LEVEL: 100 NG/ML This test will accurately detect both oxycodone and oxymorphone. Performed By: #### D RUG3 #### [place] [address] PCP SCREEN,U Negative Normal NEGATIVE [facility] Comment on above: Result Comment: CUTO FF LEVEL: 25 NG/ML Cross-reactivity has been reported with dextromethorphan. Performed By: #### D RUG3 #### [address] [address] MAGNESIUMon 01-29-2023 Magnesium [Mass/Vol] 1.98 mg/dL Normal 1.60 - 2.40 Ankit brody/[facility] Comment on above: Performed By: #### M G #### [facility] [address] [place] [address] Provider Note - ED v3on Provider Note - ED v3 Provider Note: Chart Review ED NOTES ED NOTES: HPI: The patient presents to the emergency department with complaint of constipation states he has not been able to have a bowel movement in the last 3 days but does endorse passing flatus also reports vomiting as well states that he has issues with his stomach and often times eating unhealthy foods and will cause him to get backed up he also had a history of diverticulitis and is requesting a GI cocktail additionally states that he has been having palpitations mostly at nighttime for the past week Limitations to history: [mental status, language barrier, intoxication, behavioral affect] Independent Historians: [parents, POA, EMS, law enforcement, family] External Records Reviewed: [HIE, OARRS, outpatient notes, inpatient notes, paper charts] -------- ROS: a ten point review of systems was performed and negative except as per HPI. -------- PMH / PSH: as per HPI, reviewed in EMR and discussed with the patient [] MEDS: reviewed in EMR and discussed with the patient [] ALLERGIES: reviewed in EMR[] SocH: as per HPI, otherwise reviewed in EMR [] FH: as per HPI, otherwise reviewed in EMR [] -------- Physical Exam: VS: As documented in the triage note and EMR flowsheet from this visit was reviewed General: Well appearing. No acute distress. Eyes: Extraocular movements grossly intact. No scleral icterus. HEENT: Atraumatic. Normocephalic. Neck: Supple. No gross masses CV: RRR, audible S1/S2, 2+ symmetric peripheral pulses Resp: Clear to auscultation bilaterally. No respiratory distress. Non-labored respirations GI: Soft, non-tender, non-distended, no rebound or gaurding MSK: Symmetric muscle bulk. No gross step offs or deformities. Skin: Warm, dry, no obvious rash. Neuro: Speech fluent. Awake. Alert. Appropriate conversation. Psych: Appropriate mood and affect for situation -------- Hospital Course / Medical Decision Making: Patient presents with 3 days of no bowel movement have a history of recurrent constipation. His physical exam was unremarkable belly was soft and benign. We placed a peripheral IV and sent off lab work blood work was reassuring all his electrolytes were within normal limits white blood cell count was normal as well. X-ray of the chest and abdomen was done showing a normal bowel gas pattern no concerning findings for obstruction. He has been passing flatus since being here he was given a Zambrano GI cocktail and feeling better and was able to sleep in the emergency department without any discomfort. He was given instructions regarding importance of a good bowel regimen and a prescription for glide MiraLAX to help take every day until he has a good bowel movement. He was discharged in the ED in stable Final diagnosis and disposition: []constipation Venessa Mejias MD HISTORY OF PRESENTING ILLNESS HOSEA is a 52 year old Male and was seen by me at 29-Jan-2023 00:50. Triage Information: Most recent Vital Sign Value Date Temp (F): 98.8 01-28-2023 18:30 Temp (C): 37.1 01-28-2023 18:30 Heart Rate (beats/min): 86 01-28-2023 18:30 Respirations (breaths/min): 16 01-28-2023 18:30 SpO2 (%): 98 01-28-2023 18:30 BP Systolic (mm Hg): 121 01-28-2023 18:30 BP Diastolic (mm Hg): 80 01-28-2023 18:30 PAST MEDICAL HISTORY ALLERGIES/INTOLERANCES: Allergy Allergen: Erythromycin Base Type: Drug Reaction: Unknown Allergen: Type: Food Reaction: Other Allergen: Cipro Type: Drug Reaction: Unknown Intolerance Allergen: polyethylene glycol 3350 Type: Drug Reaction: GI Upset HEALTH HISTORY: Family History Name:No family history of cancer Code:Z78.9 Name:No family history of coronary artery disease Code:Z78.9 Medical History Name:Chest pain Code:R07.9 Name:Renal artery stenosis Code:I70.1 Name:Pulmonary embolism Code:I26.99 Name:History of COVID-19 Code:Z86.16 Name:Ascending aortic aneurysm Code:I71.2 Name:Bipolar disorder Code:F31.9 Name:Palpitations Code:R00.2 Social History Name:Homeless Code:Z59.0 Name:Does not use illicit drugs Code:Z78.9 Name:Consumes alcohol occasionally Code:Z78.9 Name:Former smoker Code:Z87.891 OUTPATIENT MEDICATIONS: Home Medications Review Status for Reconciliation: Not Done Med Status: Patient Currently Takes Medications Drug Name: cloNID (more content not included)... Normal [facility] VENOUS FULL PANELon 01-30-20 23 Anion gap [Moles/Vol] 9 mmol/L Low 10 - 25 [facility] Comment on above: Performed By: #### V FPA4 #### [place] [address] BASE EXCESS-BLOOD 0.7 mmol/L Normal -2.0 - 3.0 [facility] Comment on above: Performed By: #### V FPA4 #### [place] [address] BICARB, CALCULATED 25.4 mmol/L Normal 22.0 - 26.0 [facility] Comment on above: Performed By: #### V FPA4 #### [place] [address] CALCIUM,IONIZED 1.19 mmol/L Normal 1.10 - 1.33 [facility] Comment on above: Performed By: #### V FPA4 #### [place] [address] Chloride [Moles/Vol] 105 mmol/L Normal 98 - 107 [facility] Comment on above: Performed By: #### V FPA4 #### [place] [address] Glucose [Mass/Vol] 114 mg/dL High 74 - 99 [facility] Comment on above: Performed By: #### V FPA4 #### [place] [address] Hematocrit (Bld) [Volume fraction] 40.0 % Low 41.0 - 52.0 [facility] Comment on above: Performed By: #### V FPA4 #### [address] [address] Hemoglobin (Bld) [Mass/Vol] 13.2 g/dL Low 13.5 - 17.5 [facility] Comment on above: Performed By: #### V FPA4 #### [address] [address] Lactate [Moles/Vol] 1.0 mmol/L Normal 0.4 - 2.0 [facility] Comment on above: Performed By: #### V FPA4 #### [address] [address] OXY HGB 93.6 % High 45.0 - 75.0 [facility] Comment on above: Performed By: #### V FPA4 #### [address] [address] Oxygen (Bld) [Partial pressure] 69 mm[Hg] High 35 - 45 [facility] Comment on above: Performed By: #### V FPA4 #### [address] [address] PATIENT TEMPERATURE 37.0 degrees C Normal [facility] Comment on above: Result Comment: NOTE : PATIENT RESULTS ARE NOT CORRECTED FOR TEMPERATURE. Performed By: #### V FPA4 #### [address] [address] PCO2 40 mmHg Low 41 - 51 [facility] Comment on above: Performed By: #### V FPA4 #### [address] [address] pH (Bld) 7.41 [pH] Normal 7.33 - 7.43 [facility] Comment on above: Performed By: #### V FPA4 #### [address] [address] Potassium [Moles/Vol] 3.9 mmol/L Normal 3.5 - 5.3 [facility] Comment on above: Performed By: #### V FPA4 #### [address] [address] SO2 95 % High 45 - 75 [facility] Comment on above: Performed By: #### V FPA4 #### [address] [address] Sodium [Moles/Vol] 135 mmol/L Low 136 - 145 [place] on/[facility] Comment on above: Performed By: #### V FPA4 #### [address] [address] CBC with Diffon 01-22-2023 AB IMMATURE NEUT 0.00 K/UL Normal 0.0-0.1 [facility] Comment on above: Performed By: #### C BCD #### [facility] [address] [address] ABS BASO 0.02 K/UL Normal 0.00-0.22 [facility] Comment on above: Performed By: #### C BCD #### [facility] [address] [address] ABS EOS 0.07 K/UL Normal 0-0.45 [facility] Comment on above: Performed By: #### C BCD #### [facility] [address] [address] ABS NEUTROPHILS 2.30 K/UL Normal 1.8-7.7 [facility] Comment on above: Performed By: #### C BCD #### [facility] [address] [address] ABS.NEUT.CALCULATED 2.30 K/UL Normal [facility] Comment on above: Result Comment: Perf ormed at [address] [address] Performed By: #### C BCD #### [facility] [address] [address] Basophils/100 WBC (Bld) 0.50 % Normal 0-1 [facility] Comment on above: Performed By: #### C BCD #### [facility] [address] [address] DIFF TYPE AUTO DIFF Normal [facility] Comment on above: Performed By: #### C BCD #### [facility] [address] [place] [address] Eosinophils/100 WBC (Bld) 1.80 % Normal 0-3 [facility] Comment on above: Performed By: #### C BCD #### [facility] [address] [place] [address] Erythrocyte distribution width (RBC) [Ratio] 12.6 % Normal 11.7-15.0 [facility] Comment on above: Performed By: #### C BCD #### [facility] [address] [place] [address] Hematocrit (Bld) [Volume fraction] 38.6 % Low 41-50 [facility] Comment on above: Performed By: #### C BCD #### [facility] [address] [place] [address] Hemoglobin (Bld) [Mass/Vol] 13.1 g/dL Low 13.5-16.5 [facility] Comment on above: Performed By: #### C BCD #### [facility] [address] [place] [address] Lymphocytes (Bld) [#/Vol] 1.08 10*3/uL Low 1.2-3.2 [facility] Comment on above: Performed By: #### C BCD #### [facility] [address] [place] [address] Lymphocytes/100 WBC (Bld) 28.50 % Normal 20-40 [facility] Comment on above: Performed By: #### C BCD #### [facility] [address] [place] [address] MCH (RBC) [Entitic mass] 29.2 pg Normal 26-34 [facility] Comment on above: Performed By: #### C BCD #### [facility] [address] [place] [address] MCHC 33.9 % Normal 31-37 [facility] Comment on above: Performed By: #### C BCD #### [facility] [address] [place] [address] MCV (RBC) [Entitic vol] 86.0 fL Normal 80-100 [facility] Comment on above: Performed By: #### C BCD #### [facility] [address] [place] [address] MEAN PLT VOL 11.3 CU Normal 7.0-12.6 [facility] Comment on above: Performed By: #### C BCD #### [place] [address] [place] [address] Monocytes (Bld) [#/Vol] 0.32 10*3/uL Normal 0-0.8 [facility] Comment on above: Performed By: #### C BCD #### [place] [address] [place] [address] Monocytes/100 WBC (Bld) 8.40 % High 0-8 [facility] Comment on above: Performed By: #### C BCD #### [place] [address] [place] [address] Neutrophils/100 WBC (Bld) 0.00 % Normal 0.0-1.0 [facility] Comment on above: Performed By: #### C BCD #### [place] [address] [place] [address] Neutrophils/100 WBC (Bld) 60.80 % Normal 50-70 [facility] Comment on above: Performed By: #### C BCD #### [place] [address] [place] [address] NRBC'S 0 /100 WBC Normal 0 [facility] Comment on above: Performed By: #### C BCD #### [place] [address] [place] [address] Platelets (Bld) [#/Vol] 156 10*3/uL Normal 150-450 [facility] Comment on above: Performed By: #### C BCD #### [place] [address] [place] [address] RBC (Bld) [#/Vol] 4.49 10*6/uL Low 4.5-5.5 [facility] Comment on above: Performed By: #### C BCD #### [facility] [address] [address] RDW-SD 38.7 FL Normal 37.0-54.0 [facility] Comment on above: Performed By: #### C BCD #### [address] [address] WBC (Bld) [#/Vol] 3.8 10*3/uL Low 4.5-11.0 [facility] Comment on above: Performed By: #### C BCD #### [address] [address] CHEST 2 VIEWon 01-22-2023 CHEST 2 VIEW *FINAL Date of Service: 01/22/2023 20:03 Adm #: [id number] Reading Dr:BRYAN BOLANOS Signoff Dr: BRYAN BOLANOS PROCEDURE: CHEST 2 VIEW - WXR 0020 REASON FOR EXAM: cp RESULT: Patient Name: HOSEA ALVAREZ STUDY: CHEST 2 VIEW 01/22/2023 8:03 pm INDICATION: Chest pain after drinking caffeine COMPARISON: 09/05/2021 ACCESSION NUMBER(S): [id number] ORDERING CLINICIAN: ELVIRA MCNALLY TECHNIQUE: PA and lateral views of the chest were acquired. FINDINGS: The cardiac size is at the upper range of normal with tortuosity of the descending thoracic aorta. The lungs are clear without pleural abnormality. IMPRESSION: No acute cardiopulmonary disease. Dictation workstation: [id number] Original Interpreting Physician: BRYAN BOLANOS M.D. Original Transcribed by/Date: MMODAL Jan 22 2023 7:26P Original Electronically Signed by/Date: BRYAN BOLANOS M.D. Jan 22 2023 8:36P Addendum Interpreting Physician: Addendum Transcribed by/Date: NO ADDENDUM Addendum Electronically Signed by/Date: Normal [facility] COMPREHENSIVE METABOLIC PANE Bart 01-22-2023 Albumin [Mass/Vol] 4.3 g/dL Normal 3.5-5.0 [facility] Comment on above: Performed By: #### E JOHN #### [facility] [place] [address] [place] [address] Albumin/Globulin [Mass ratio] 1.6 {ratio} Normal 1.5-3.0 [facility] Comment on above: Performed By: #### E JOHN #### [facility] [address] [place] [address] ALP [Catalytic activity/Vol] 66 U/L Normal 35-125 [facility] Comment on above: Performed By: #### E JOHN #### [facility] [address] [place] [address] ALT [Catalytic activity/Vol] 33 U/L Normal 5-40 [facility] Comment on above: Performed By: #### E JOHN #### [facility] [address] [place] [address] Anion gap [Moles/Vol] 12 mmol/L Normal 0-19 [facility] Comment on above: Performed By: #### E JOHN #### [facility] [address] [place] [address] AST [Catalytic activity/Vol] 22 U/L Normal 5-40 [facility] Comment on above: Performed By: #### E JOHN #### [facility] [address] [place] [address] Bilirubin [Mass/Vol] 0.2 mg/dL Normal 0.1-1.2 [facility] Comment on above: Performed By: #### E JOHN #### [facility] [address] [place] [address] Calcium [Mass/Vol] 9.1 mg/dL Normal 8.5-10.4 [facility] Comment on above: Performed By: #### E JOHN #### [facility] [address] [place] [address] Chloride [Moles/Vol] 101 mmol/L Normal 97-107 [facility] Comment on above: Performed By: #### E JOHN #### [facility] [address] [place] [address] CO2 [Moles/Vol] 25 mmol/L Normal 24-31 [facility] Comment on above: Performed By: #### E JOHN #### [facility] [address] [place] [address] Creatinine [Mass/Vol] 1.0 mg/dL Normal 0.4-1.6 [facility] Comment on above: Performed By: #### E JOHN #### [address] [address] ESTIMATED GFR 91 mL/min/1.73 m2 Normal [facility] Comment on above: Result Comment: CALCULATIONS OF ESTIMATED GFR ARE PERFORMED USING THE 2020 CKD-EPI STUDY REFIT EQUATION WITHOUT THE RACE VARIABLE FOR THE IDMS-TRACEABLE CREATININE METHODS. https://jasn.asnjournals.org/content/early//ASN.611845 6530 Performed at [address] [address] Performed By: #### E JOHN #### [address] [address] Globulin (S) [Mass/Vol] 2.7 g/dL Normal 1.9-3.7 [facility] Comment on above: Performed By: #### E JOHN #### [address] [address] Glucose [Mass/Vol] 122 mg/dL High 65-99 [facility] Comment on above: Performed By: #### E JOHN #### [address] [address] Potassium [Moles/Vol] 4.1 mmol/L Normal 3.4-5.1 [facility] Comment on above: Performed By: #### E JOHN #### [address] [address] Protein [Mass/Vol] 7.0 g/dL Normal 5.9-7.9 [facility] Comment on above: Performed By: #### E JOHN #### [address] [address] Sodium [Moles/Vol] 138 mmol/L Normal 133-145 [facility] Comment on above: Performed By: #### E JOHN #### [address] [address] Urea nitrogen [Mass/Vol] 18 mg/dL Normal 8-25 [facility] Comment on above: Performed By: #### E JOHN #### [facility] [address] [place], [place] [address] [place] [address] Urea nitrogen/Creatinine [Mass ratio] 18.0 mg/mg Normal 8-21 [facility] Comment on above: Performed By: #### E JOHN #### [facility] [id number] [place] [address] [place] [address] ED NOTEon 01-22-2023 ED NOTE HNO ID: [id number] Author: Batsheva Manley RN Service: ? Author Type: Registered Nurse Type: ED Notes Filed: 01/21/2023 11:10 PM Note Text: Discussed discharge instructions and follow up care with the patient. Patient verbalized understanding, provided bus pass, and pt left in stable condition [facility] ED NOTE HNO ID: [id number] Author: Helga Serrano RN Service: ? Author Type: Registered Nurse Type: ED Notes Filed: 01/21/2023 10:21 PM Note Text: Dr Fisher to bedside. [facility] ED NOTE HNO ID: [id number] Author: Batsheva Manley RN Service: ? Author Type: Registered Nurse Type: ED Notes Filed: 01/21/2023 10:13 PM Note Text: Pt up to triage window stating that he just needs a dose of his medication and a prescription refill. Pt states he doesn't need blood work, he knows what is going on and just needs a medicine [facility] ED PROV NOTEon 01-22-2023 ED PROV NOTE HNO ID: [id number] Author: Elgin Fisher MD Service: Emergency Medicine Author Type: Physician Type: ED Provider Notes Filed: 01/22/2023 12:01 AM Note Text: ED Provider Note Patient Name: Hosea Alvarez : 1970 SERVICE DATE: 01/21/23 History Patient presents with: Palpitations Hosea Alvarez is a 52-year-old male with charted history of hypertension, anxiety presenting with request for medication refill. Patient states he has chronic palpitations for which she takes metoprolol. He states he does not take his medication his heart rate will sometimes rise up to 100 bpm, making it difficult for him to sleep. He states he is visiting [place] from [place] currently. He states he ran out of metoprolol but still has his other medications. PAST MEDICAL HISTORY Diagnosis Date Hemorrhoids Hypertension Hypoglycemia Renal disorder renal stenosis No past surgical history on file. No family history on file. Social History Tobacco Use Smoking status: Former Types: Cigarettes Smokeless tobacco: Never Vaping Use Vaping Use: Never used Substance and Sexual Activity Alcohol use: Yes Alcohol/week: 7.0 standard drinks Types: 7 Cans of beer per week Comment: pt sts a beer a day. daily Drug use: No Sexual activity: Not on file ALLERGIES Allergen Reactions Caffeine Rash Other reaction(s): Shakiness [place] GI Upset, Rash, Vomiting Statused by Person: Imelda Meza.(T Brittaer2) on Statused by Person: SRAVANTHI MONGE([facility]) on Statused by Person: Imelda Meza.(T Brittaer2) on Statused by Person: SRAVANTHI MONGE([facility]) on Amlodipine Swelling Amoxicillin GI Upset Chocolate Flavor GI Upset Ciprofloxacin Other: See Comments Diazepam Unknown Fentanyl Mental Status Change Lorazepam GI Upset Other reaction(s): Abdominal Pain Seasonal Allergies GI Upset Abdominal pain Abdominal pain Serotonin Hcl Mental Status Change 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 Respiratory: Negative for shortness of breath. Cardiovascular: Positive for palpitations (chronic, unchanged from baseline). Negative for chest pain. Gastrointestinal: Negative for vomiting. Physical Exam Vitals [01/21/231913] BP Pulse Temp Temp src Resp SpO2 Weight Height 149/78 84 36.3 ?C (97.3 ?F) Oral 18 98 % 97.1 kg (214 lb) -- Physical Exam Vitals and nursing note reviewed. Constitutional: General: He is not in acute distress. Appearance: He is not toxic-appearing or diaphoretic. HENT: Head: Atraumatic. Nose: No congestion or rhinorrhea. Mouth/Throat: Pharynx: Oropharynx is clear. Eyes: General: No scleral icterus. Extraocular Movements: Extraocular movements intact. Cardiovascular: Rate and Rhythm: Normal rate and regular rhythm. Pulmonary: Effort: Pulmonary effort is normal. Abdominal: General: There is no distension. Palpations: Abdomen is soft. Musculoskeletal: Cervical back: Neck supple. Skin: General: Skin is warm and dry. Neurological: Mental Status: He is alert and oriented to person, place, and time. Diagnostic Testing ED Labs Ordered and Reviewed - No data to display Procedures ED Course / Clinical Impression Clinical Impressions as of 01/21/23 2358 Palpitations Anxiety MDM / Disposition / Plan 52-year-old male presenting for refill of metoprolol, taken for chronic palpitations. Vital signs reassuring without hypotension, tachycardia, fever, or hypoxia on room air. Patient overall well-appearing on exam, in no apparent distress. EKG with normal sinus rhythm, machine read as left axis deviation, appears similar to previous EKG from 2020 on my assessment. Patient denying any new symptoms. He requested that he be given a dose of metoprolol in the ED, which was given. He also requested GI cocktail which was given. He notes he already has a prescribed refill for his medication but was hoping we could fill this from the emergency department. I informed him we are unable to do this and that he must go to the pharmacy to have this done. He agreed to this plan. Appropriate return precautions were discussed and patient was discharged. Additional Tests or Interventions Additional tests/procedures: ECG EKG INTERPRETATION: Ordered and Reviewed Rhythm: Normal sinus rhythm Rate: 92 [place]: Left axis deviation Intervals: Normal PA interval QRS Complex: Normal ST Segment: Normal ST-T segments QT Interval: Normal Compared with Prior: Unchanged Interpretation performed by Elgin Fisher MD Disposition The patient was discharged. Counseled patient re (more content not included)... Normal [facility] EKGon 01-22-2023 Electrocardiogram EKG Ventricular Rate : 76 BPM Atrial Rate : 76 BPM P-R Interval : 166 ms QRS Duration : 100 ms Q-T Interval : 354 ms QTC Calculation(Bazett) : 398 ms Calculated P [place] : 25 degrees Calculated R [place] : -23 degrees Calculated T [place] : 2 degrees Diagnosis:Normal sinus rhythm early repolarization in I AVL seen Aug 22 2021 Poor R wave progression V1-V6 Confirmed by MISHA ESCALANTE ([id number]) on 01/23/2023 9:27:21 PM Normal [facility] HS TROPONIN Ton 01-22-2023 HS TROPONIN T DELTA Normal 0-4 [facility] Comment on above: Result Comment: No p revious result Performed at [place] [id number] Performed By: #### E JOHN #### [place] [address] HS TROPONIN T,GEN 5 6 NG/L Normal <15 [facility] Comment on above: Result Comment: LESS THAN Sex Specific Reference Range: Male (0-22), Female (0-14) Change(Delta) >=5 is significant Troponin Baseline and Serial elevation for significant change(delta)should be interpreted in conjunction with clinical presentation, history, signs and symptoms, ECG and biomarker concentrations. Troponin elevation can be seen in several other non-infarct conditions. Chronic troponin elevations can be detected in clinically stable patients with heart failure, cardiomyopathy, renal failure, diabetes, etc. Elevated troponin can also occur in myocarditis, heart contusion, PE, drug induced cardiotoxicity, etc. Samples should NOT be taken from patients receiving high dose biotin (> 5mg) doses until 8 hours following last biotin administration. Performed By: #### E JOHN #### [facility] [place] [id number] Laboratory - Chemistry and C hemistry - challengeon 01-22-2023 Albumin [Mass/Vol] Albumin 4.3 GM/DL (3.5-5.0 GM/DL) 3.5 - 5.0 GM/DL [facility] [place] Albumin/Globulin [Mass ratio] Albumin Globulin Ratio 1.6 RATIO (1.5-3.0 RATIO) 1.5 - 3.0 RATIO [place] ALP (Bld) [Catalytic activity/Vol] Alk Phosphatase 66 U/L (35-125 U/L) 35 - 125 U/L [facility] [place] ALT [Catalytic activity/Vol] ALT 33 U/L (5-40 U/L) 5 - 40 U/L [facility] [place] Anion gap [Moles/Vol] Anion Gap 12 MMOL/ L (0-19 MMOL/L) 0 - 19 MMOL/L [facility] [place] AST [Catalytic activity/Vol] AST 22 U/L (5-40 U/L) 5 - 40 U/L [facility] [place] Bilirubin [Mass/Vol] Total Bilirubin 0.2 MG/DL (0.1-1.2 MG/DL) 0.1 - 1.2 MG/DL [facility] [place] Calcium [Mass/Vol] Calcium 9.1 MG/DL (8.5-10.4 MG/DL) 8.5 - 10.4 MG/DL [facility] [place] Chloride [Moles/Vol] Chloride 101 MMOL/L (97-107 MMOL/L) 97 - 107 MMOL/L [facility] [place] CO2 [Moles/Vol] Carbon Dioxide 25 MM OL/L (24-31 MMOL/L) 24 - 31 MMOL/L [facility] [place] Creatinine [Mass/Vol] Creatinine R 1.0 M G/DL (0.4-1.6 MG/DL) 0.4 - 1.6 MG/DL [facility] [place] GFR/1.73 sq M.predicted MDRD (S/P/Bld) [Vol rate/Area] EGFR 91 mL/min/1.73 m2 (Reference Range: not available) CALCULATIONS OF ESTIMATED GFR ARE PERFORMED USING THE 2020 CKD-EPI STUDY REFIT EQUATION WITHOUT THE RACE VARIABLE FOR THE IDMS-TRACEABLE CREATININE METHODS. https://jasn.asnjournals .org/content//06/14/ASN.1318207986 Performed at [address] [address] [facility] [place] Globulin (S) [Mass/Vol] Globulin 2.7 G/DL (1.9-3.7 G/DL) 1.9 - 3.7 G/DL [facility] [place] Glucose [Mass/Vol] Glucose 122 MG/DL H (65-99 MG/DL) High 65 - 99 MG/DL [facility] [place] Potassium [Moles/Vol] Potassium R 4.1 MM OL/L (3.4-5.1 MMOL/L) 3.4 - 5.1 MMOL/L [facility] [place] Protein [Mass/Vol] Total Protein 7.0 G/ DL (5.9-7.9 G/DL) 5.9 - 7.9 G/DL [facility] [place] Sodium [Moles/Vol] Sodium 138 MMOL/L (133-145 MMOL/L) 133 - 145 MMOL/L [facility] [place] Troponin T.cardiac [Mass/Vol] HS Troponin T,Gen 5 6 NG/L (-<15 NG/L) LESS THAN Sex Specific Reference Range: Male (0-22), Female (0-14) Change(Delta) >=5 is significant Troponin Baseline and Serial elevation for significant change(delta)should be interpreted in conjunction with clinical presentation, history, signs and symptoms, ECG and biomarker concentrations. Troponin elevation can be seen in several other non-infarct conditions. Chronic troponin elevations can be detected in clinically stable patients with heart failure, cardiomyopathy, renal failure, diabetes, etc. Elevated troponin can also occur in myocarditis, heart contusion, PE, drug induced cardiotoxicity, etc. Samples should NOT be taken from patients receiving high dose biotin (> 5mg) doses until 8 hours following last biotin administration. [facility] [place] Urea nitrogen [Mass/Vol] BUN 18 MG/DL (8-25 MG/DL) 8 - 25 MG/DL [facility] U[facility] nitrogen/Creatinine [Mass ratio] BUN Creatinine Ratio 18.0 RATIO (8-21 RATIO) 8 - 21 RATIO [facility] Laboratory - Hematology and Cell countson 01-22-2023 Basophils (Bld) [#/Vol] Abs Baso 0.02 K/UL (0.00-0.22 K/UL) 0.00 - 0.22 K/UL [facility] [place] Basophils/100 WBC (Bld) Basophil 0.50 % (0-1 %) 0 - 1 % [facility] Differential cell count method Nom (Bld) Diff Type AUTO DIFF (Reference Range: not available) [facility] Eosinophils (Bld) [#/Vol] Abs Eos 0.07 K/UL (0-0.45 K/UL) 0 - 0.45 K/UL [facility] [place] Eosinophils/100 WBC (Bld) Eosinophil 1.80 % (0-3 %) 0 - 3 % [facility] Erythrocyte distribution width (RBC) [Entitic vol] RDW SD 38.7 FL (37.0-54.0 FL) 37.0 - 54.0 FL [facility] [place] Erythrocyte distribution width (RBC) [Ratio] RDW CV 12.6 % (11.7-15.0 %) 11.7 - 15.0 % [facility] [place] Hematocrit (Bld) [Volume fraction] HCT 38.6 % L (41-50 %) Low 41 - 50 % [facility] [place] Hemoglobin (Bld) [Mass/Vol] HGB 13.1 GM/DL L (13.5-16.5 GM/DL) Low 13.5 - 16.5 GM/DL [facility] [place] Immature granulocytes (Bld) [#/Vol] Abs Imm Neut 0.00 K/UL (0.0-0.1 K/UL) 0.0 - 0.1 K/UL [facility] [place] Lymphocytes (Bld) [#/Vol] Abs Lymph 1.08 K/UL L (1.2-3.2 K/UL) Low 1.2 - 3.2 K/UL [facility] [place] Lymphocytes/100 WBC (Bld) Lymphocyte 28.50 % (20-40 %) 20 - 40 % [facility] [place] MCH (RBC) [Entitic mass] MCH 29.2 PG (26-34 PG) 26 - 34 PG [facility] [place] MCHC (RBC) [Mass/Vol] MCHC 33.9 % (31-37 %) 31 - 37 % [facility] [place] MCV (RBC) [Entitic vol] MCV 86.0 FL (80-100 FL) 80 - 100 FL [facility] [place] Monocytes (Bld) [#/Vol] Abs Gage 0.32 K/UL (0-0.8 K/UL) 0 - 0.8 K/UL [facility] [place] Monocytes/100 WBC (Bld) Monocyte 8.40 % H (0-8 %) High 0 - 8 % [facility] [place] Neutrophils (Bld) [#/Vol] Abs.Neut.Calculated 2.30 K/UL (Reference Range: not available) Performed at [address] [address] [facility] [place] Neutrophils (Bld) [#/Vol] Abs Neut 2.30 K/UL (1.8-7.7 K/UL) 1.8 - 7.7 K/UL [facility] [place] Neutrophils.immature/ 100 WBC (Bld) Immature Neut % 0.00 % (0.0-1.0 %) 0.0 - 1.0 % [place] Nucleated RBC/100 WBC (Bld) [Ratio] NRBCs 0 /100 WBC (0 /100 WBC) [facility] [place] Platelet mean volume (Bld) [Entitic vol] MPV 11.3 CU (7.0-12.6 CU) 7.0 - 12.6 CU [place] Platelets (Bld) [#/Vol] PLT 156 K/UL (150-450 K/UL) 150 - 450 K/UL [place] RBC (Bld) [#/Vol] RBC 4.49 M/UL L (4.5 -5.5 M/UL) Low 4.5 - 5.5 M/UL [place] Segmented neutrophils/100 WBC (Bld) Granulocyte 60.80 % (50-70 %) 50 - 70 % [facility] [place] WBC (Bld) [#/Vol] WBC 3.8 K/UL L (4.5- 11.0 K/UL) Low 4.5 - 11.0 K/UL [place] No Panel Informationon 01-22 XR Chest 2 Views (PA and lat) (Reference Range: not available) *FINAL Date of Service: 01/22/2023 20:03 Adm #: [id number] Reading Dr:BRYAN BOLANOS Signoff Dr: BRYAN BOLANOS PROCEDURE: CHEST 2 VIEW - WXR 0020 REASON FOR EXAM: cp RESULT: Patient Name: HOSEA ALVAREZ STUDY: CHEST 2 VIEW 01/22/2023 8:03 pm INDICATION: Chest pain after drinking caffeine COMPARISON: 09/05/2021 ACCESSION NUMBER(S): [id number] ORDERING CLINICIAN: ELVIRA MCNALLY TECHNIQUE: PA and lateral views of the chest were acquired. FINDINGS: The cardiac size is at the upper range of normal with tortuosity of the descending thoracic aorta. The lungs are clear without pleural abnormality. IMPRESSION: No acute cardiopulmonary disease. Dictation workstation: [id number] Original Interpreting Physician: BRYAN BOLANOS M.D. Original Transcribed by/Date: ALDO Jan 22 2023 7:26P Original Electronically Signed by/Date: BRYAN BOLANOS M.D. Jan 22 2023 8:36P Addendum Interpreting Physician: Addendum Transcribed by/Date: NO ADDENDUM Addendum Electronically Signed by/Date: [facility] HS Troponin T Delta No previous result Performed at [address] [address] (0-4 ) 0 - 4 [facility] ED NOTEon 01-21-2023 ED NOTE HNO ID: [id number] Author: Ira Vuong RN Service: ? Author Type: Registered Nurse Type: ED Notes Filed: 01/21/2023 7:16 PM Note Text: Pt to ed for heart palpations. Pt states out of metoprolol. [facility] EKGon 01-21-2023 Electrocardiogram Ventricular Rate : 9 2 BPM Atrial Rate : 92 BPM P-R Interval : 154 ms QRS Duration : 94 ms Q-T Interval : 338 ms QTC Calculation(Bazett) : 417 ms Calculated P [place] : 32 degrees Calculated R [place] : -30 degrees Calculated T [place] : 23 degrees NORMAL SINUS RHYTHM POSSIBLE LEFT ATRIAL ENLARGEMENT LEFT AXIS DEVIATION ABNORMAL ECG WHEN COMPARED WITH ECG OF 19-JAN-2023 01:22, NO SIGNIFICANT CHANGE WAS FOUND Confirmed by ELGIN FISHER MD ([id number]), book editor YASMIN GAUTHIER ([id number]) on 01/24/2023 8:16:52 AM NAME : HOSEA ALVAREZ PID : [id number] : 1970 Gender : Male Race : ORD : Procedure Date : Jan 21 2023 18:42:25 Edit Date : Jan 24 2023 08:16:55 Diagnosis: NORMAL SINUS RHYTHM POSSIBLE LEFT ATRIAL ENLARGEMENT LEFT AXIS DEVIATION ABNORMAL ECG WHEN COMPARED WITH ECG OF 19-JAN-2023 01:22, NO SIGNIFICANT CHANGE WAS FOUND Confirmed by ELGIN FISHER MD ([id number]), book editor YASMIN GAUTHIER ([id number]) on 01/24/2023 8:16:52 AM Test Reason : Location : : [facility] Overread By : ELGIN FISHER MD Edited By : YASMIN GAUTHIER Referred By : , Acquired by : PAULINO JETT Normal [facility] ECG COMPLETEon 01-19-2023 ECG COMPLETE Ventricular Rate : 7 4 BPM Atrial Rate : 74 BPM P-R Interval : 170 ms QRS Duration : 104 ms Q-T Interval : 378 ms QTC Calculation(Bazett) : 419 ms Calculated P [place] : 19 degrees Calculated R [place] : -10 degrees Calculated T [place] : 9 degrees NORMAL SINUS RHYTHM ST ELEVATION, CONSIDER EARLY REPOLARIZATION, PERICARDITIS, OR INJURY ABNORMAL ECG WHEN COMPARED WITH ECG OF 08-SEP-2021 13:41, NO SIGNIFICANT CHANGE WAS FOUND confirmed 0123 Confirmed by MD SANCHEZ MICHELLE ([id number]), book editor CATHI PERALTA ([id number]) on 01/19/2023 10:59:58 AM NAME : HOSEA ALVAREZ PID : [id number] : 1970 Gender : Male Race : ORD : [id number] Procedure Date : Jan 19 2023 01:22:13 Edit Date : Jan 19 2023 11:00:00 Diagnosis: NORMAL SINUS RHYTHM ST ELEVATION, CONSIDER EARLY REPOLARIZATION, PERICARDITIS, OR INJURY ABNORMAL ECG WHEN COMPARED WITH ECG OF 08-SEP-2021 13:41, NO SIGNIFICANT CHANGE WAS FOUND confirmed 0123 Confirmed by MD SANCHEZ MICHELLE ([id number]), book editor CATHI PERALTA ([id number]) on 01/19/2023 10:59:58 AM Test Reason : Chest Pain Location : 80 : [facility] Overread By : MD SANCHEZ MICHELLE Edited By : CATHI PERALTA Referred By : , Acquired by : NAJMA DONOVAN [facility] ED NOTEon 01-19-2023 ED NOTE HNO ID: [id number] Author: Bhumika Franco RN Service: ? Author Type: Registered Nurse Type: ED Notes Filed: 01/19/2023 6:42 AM Note Text: Discharge instructions and follow up care were reviewed, pt verbalized understanding. Pt left ED with steady gait by himself. [facility] ED NOTE HNO ID: [id number] Author: Bhumika Franco RN Service: ? Author Type: Registered Nurse Type: ED Notes Filed: 01/19/2023 5:56 AM Note Text: Pt observed out of the bed with pants down by the sink. Pt stated I had to pee so used urinal and throw it into the sink. Reminded to use call light for assistance. [facility] ED NOTE HNO ID: [id number] Author: Bhumika Franco RN Service: ? Author Type: Registered Nurse Type: ED Notes Filed: 01/19/2023 4:30 AM Note Text: Pt was observed getting out of the bed. Pt Took his long sleeve t-shirt and put it on top of IV and BP cuff. Pt was reminded to use the call light for assistance [facility] ED NOTE HNO ID: [id number] Author: Bhumika Franco RN Service: ? Author Type: Registered Nurse Type: ED Notes Filed: 01/19/2023 4:03 AM Note Text: Pt gets out of the bed without calling for help. At this time he was noted drinking out of the sink using the urinal that was left for urine sample. Pt is reminded to use his call light for assistance. Call light is in reach. Reminded to the pt we need urine sample. Pt denies the need of urinating. [facility] ED PROV NOTEon 01-19-2023 ED PROV NOTE HNO ID: [id number] Author: Lily Dacosta PA-C Service: Emergency Medicine Author Type: Physician Director [facility] Type: ED Provider Notes Filed: 01/19/2023 6:09 AM Note Text: ED Provider Note Patient Name: Hosea Alvarez : 1970 SERVICE DATE: 01/19/23 History Patient presents with: Back Pain Patient 52-year-old male brought in by EMS for alcohol abuse/intoxication patient has multiple complaints patient is vomiting in the sink at time of initial consultation History provided by: Patient rigger used: No Chest Pain Pain location: Substernal area Pain quality: aching and pressure Pain radiates to: Neck Pain severity: Moderate Onset quality: Gradual Duration: 2 days Timing: Intermittent Progression: Waxing and waning Chronicity: Recurrent Context: breathing and movement Relieved by: Certain positions Worsened by: Coughing Ineffective treatments: None tried Associated symptoms: anxiety, dizziness and palpitations Associated symptoms: no abdominal pain, no back pain, no fatigue, no fever, no headache, no heartburn, no lower extremity edema, no nausea, no near-syncope, no shortness of breath, no vomiting and no weakness Risk factors: male sex and obesity Risk factors: no high cholesterol PAST MEDICAL HISTORY Diagnosis Date Hemorrhoids Hypertension Hypoglycemia Renal disorder renal stenosis No past surgical history on file. No family history on file. Social History Tobacco Use Smoking status: Former Types: Cigarettes Smokeless tobacco: Never Vaping Use Vaping Use: Never used Substance and Sexual Activity Alcohol use: Yes Alcohol/week: 7.0 standard drinks Types: 7 Cans of beer per week Comment: pt sts a beer a day. daily Drug use: No Sexual activity: Not on file ALLERGIES Allergen Reactions Caffeine Rash Other reaction(s): Shakiness [place] GI Upset, Rash, Vomiting Statused by Person: Imelda Meza.( Carter2) on Statused by Person: SRAVANTHI MONGE([facility]) on Statused by Person: Imelda Meza.(T Carter2) on Statused by Person: SRAVANTHI MONGE([facility]) on Amlodipine Swelling Amoxicillin GI Upset Chocolate Flavor GI Upset Ciprofloxacin Other: See Comments Diazepam Unknown Fentanyl Mental Status Change Lorazepam GI Upset Other reaction(s): Abdominal Pain Seasonal Allergies GI Upset Abdominal pain Abdominal pain Serotonin Hcl Mental Status Change 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 Negative for chills, fatigue and fever. HENT: Negative for congestion. Eyes: Negative for visual disturbance. Respiratory: Negative for apnea, choking and shortness of breath. Cardiovascular: Positive for chest pain and palpitations. Negative for near-syncope. Gastrointestinal: Negative for abdominal pain, diarrhea, heartburn, nausea and vomiting. Genitourinary: Negative for dysuria, frequency, hematuria and urgency. Musculoskeletal: Negative for back pain, myalgias and neck stiffness. Skin: Negative for color change and rash. Neurological: Positive for dizziness. Negative for weakness, light-headedness and headaches. Psychiatric/Behavioral: Negative for behavioral problems, hallucinations and suicidal ideas. All other systems reviewed and are negative. Physical Exam Vitals [01/19/23 0118] BP Pulse Temp Temp src Resp SpO2 Weight Height 138/89 79 36.5 ?C (97.7 ?F) Oral 18 98 % 97.2 kg (214 lb 4.6 oz) 1.676 m (5' 6 ) Physical Exam Vitals and nursing note reviewed. Constitutional: General: He is in acute distress. Appearance: Normal appearance. He is well-developed. He is obese. He is not ill-appearing, toxic-appearing or diaphoretic. HENT: Head: Normocephalic and atraumatic. Nose: Congestion present. Eyes: Pupils: Pupils are equal, round, and reactive to light. Cardiovascular: Rate and Rhythm: Normal rate and regular rhythm. Heart sounds: Normal heart sounds. Pulmonary: Effort: Pulmonary effort is normal. Abdominal: General: Bowel sounds are normal. There is no distension. Palpations: Abdomen is soft. Tenderness: There is no abdominal tenderness. There is no guarding. Musculoskeletal: General: No swelling, tenderness, deformity or signs of injury. Normal range of motion. Cervical back: Normal range of motion and neck supple. Right lower leg: No edema. Left lower leg: No edema. Skin: General: Skin is warm. Neurological: Mental Status: He is alert and oriented to person, place, and time. Psychiatric: Behavior: Behavior normal. Thought Content: Thought content normal. (more content not included)... Normal [facility] HIGH SENSITIVITY TROPONIN T (SECOND)on 01-19-2023 HIGH SENSITIVITY SITA 6 ng/L Normal <12 [facility] Comment on above: Order Comment: Speci men Type: BLOOD SPECIMENOrdering Facility: [facility] Address: [address] [place] [address] Result Comment: When assessing risk for acute coronary syndromes: In patients undergoing blood draw greater than or equal to 2 hours from symptom onset, with history of very low to moderate risk and non-ischemic ECG, an initial hs-Troponin T less than 12 ng/L AND a 1 hour delta hs-Troponin T less than 3 ng/L should be considered very low risk for 30 day MACE. Performed By: #### L [id number] ####[facility]ENT[facility]aisa LABORATORYCLIA [id number] [address] Urinalysis complete panel (U )on 01-19-2023 Bacteria LM.HPF (Urine sed) [#/Area] None Seen Normal None Seen [facility] Comment on above: Order Comment: Speci men Type: URINE SPECIMENOrdering Facility: [facility] Address: [address] [place] [address] Performed By: #### 2 4356-8 ####[facility] LABORATORYCLIA [id number] [address] [place] [facility] Bilirubin Ql (U) Negative Normal Negative [facility] Comment on above: Order Comment: Speci men Type: URINE SPECIMENOrdering Facility: [facility] Address: [address] [place] [address] Performed By: #### 2 4356-8 ####[facility] LABORATORYCLIA [id number] [address] Clarity (Unsp spec) Clear Normal Clear [facility] Comment on above: Order Comment: Speci men Type: URINE SPECIMENOrdering Facility: [facility] Address: [address] [place] [address] Performed By: #### 2 4356-8 ####[facility] LABORATORYCLIA [id number] [address] Color (U) Yellow Normal Yellow [facility] Comment on above: Order Comment: Speci men Type: URINE SPECIMENOrdering Facility: [facility] Address: [address] [place] [address] Performed By: #### 2 4356-8 ####[facility] LABORATORYCLIA [id number] [address] [place] Epithelial cells LM.HPF (Urine sed) [#/Area] None Seen Normal [facility] Comment on above: Order Comment: Speci men Type: URINE SPECIMENOrdering Facility: [facility] Address: [address] [place] [address] Performed By: #### 2 4356-8 ####[facility] LABORATORYCLIA [id number] [address] [place] Glucose Test strip (U) [Mass/Vol] Negative Normal Negative [facility] Comment on above: Order Comment: Speci men Type: URINE SPECIMENOrdering Facility: [facility] Address: [address] [place] [address] Performed By: #### 2 4356-8 ####[facility] LABORATORYCLIA [id number] [place] [address] [place] Hemoglobin Ql (U) Negative Normal Negative, Trace [facility] Comment on above: Order Comment: Speci men Type: URINE SPECIMENOrdering Facility: [facility] Address: [address] [address] Performed By: #### 2 4356-8 ####EUCLID LABORATORYCLIA [id number] [address] [place] Ketones Ql (U) Negative Normal Negative [facility] Comment on above: Order Comment: Speci men Type: URINE SPECIMENOrdering Facility: [facility] Address: [address] [address] Performed By: #### 2 4356-8 ####EUCLID LABORATORYCLIA [id number] [address] Leukocyte esterase Test strip Ql (U) Negative Normal Negative [facility] Comment on above: Order Comment: Speci men Type: URINE SPECIMENOrdering Facility: [facility] Address: [address] [address] Performed By: #### 2 4356-8 ####EUCLID LABORATORYCLIA [id number] [place] [address] [place] Nitrite Ql (U) Negative Normal Negative [facility] Comment on above: Order Comment: Speci men Type: URINE SPECIMENOrdering Facility: [facility] Address: [address] [address] Performed By: #### 2 4356-8 ####EUCLID LABORATORYCLIA [id number] [address] [place] pH (U) 6.0 [pH] Normal 5.0-8.0 [facility] Comment on above: Order Comment: Speci men Type: URINE SPECIMENOrdering Facility: [facility] Address: [address] [place] [address] Performed By: #### 2 4356-8 ####EUCLID LABORATORYCLIA [id number] [place] [address] [place] Protein (U) [Mass/Vol] Negative Normal Negative [facility] Comment on above: Order Comment: Speci men Type: URINE SPECIMENOrdering Facility: [facility] Address: [address] [place] [address] Performed By: #### 2 4356-8 ####EUCLID LABORATORYCLIA [id number] [place] [address] [place] RBC LM.HPF (Urine sed) [#/Area] 0-3 /HPF Normal 0-3 /HPF [facility] Comment on above: Order Comment: Speci men Type: URINE SPECIMENOrdering Facility: [facility] Address: [address] [place] [address] Performed By: #### 2 4356-8 ####EUCLID LABORATORYCLIA [id number] [place] [address] [place] Specific gravity (U) [Rel density] <=1.005 Low 1.005-1.030 [facility] Comment on above: Order Comment: Speci men Type: URINE SPECIMENOrdering Facility: [facility] Address: [address] [address] Performed By: #### 2 4356-8 ####[facility] CENTERLID LABORATORYCLIA [id number] [place] [address] [place] Urobilinogen Ql (U) 0.2 EU/dL Normal 0.2-1.0 EU/dL [facility] Comment on above: Order Comment: Speci men Type: URINE SPECIMENOrdering Facility: [facility] Address: [address] [place] [address] Performed By: #### 2 4356-8 ####[facility] LABORATORYCLIA [id number] [address] [id number] [facility] WBC LM.HPF (Urine sed) [#/Area] 0-5 /HPF Normal 0-5 /HPF [facility] Comment on above: Order Comment: Speci men Type: URINE SPECIMENOrdering Facility: [facility] Address: [address] [address] Performed By: #### 2 4356-8 ####[facility] LABORATORYCLIA [id number] [address] [id number] [place] APTTon 01-14-2023 aPTT Coag (Bld) [Time] 32.8 s Normal 26.0-39.0 [facility] Comment on above: Performed By: #### C D:[id number], 514030, 945790, 024759, 077642, 3250746, 294568, 854807 ####[facility] [address] [id number] Medical Director: Roberto Anand MD AUTO DIFFon 01-14-2023 Baso Count 0.01 x1000 Normal 0.00-0.20 [facility] Comment on above: Performed By: #### C D:[id number], 581613, 692895, 346738, 540048, 1070102, 605387, 177858 ####[facility] [address] [place] [address] Medical Director: Roberto Anand MD Basos % 0.3 % Normal [facility] Comment on above: Performed By: #### C D:[id number], 820405, 657747, 144995, 306970, 9086169, 370979, 160522 ####[facility] [address] [place] [address] Medical Director: Roberto Anand MD Eos Count 0.08 x1000 Normal 0.00-0.50 [facility] Comment on above: Performed By: #### C D:[id number], 229386, 791237, 828074, 719609, 8519108, 138327, 023580 ####[facility] [address] [place] [address] Medical Director: Roberto Anand MD Eosinophils/100 WBC (Bld) 2.4 % Normal [facility] Comment on above: Performed By: #### C D:[id number], 230768, 963172, 189749, 718565, 5002390, 738597, 723445 ####[facility] [address] [place] [address] Medical Director: Roberto Anand MD Lymph Count 0.94 x1000 Low 1.20-4.80 [facility] Comment on above: Performed By: #### C D:[id number], 506570, 386942, 069910, 127664, 5549442, 070509, 398026 ####[facility] [address] [place], [place] [id number]) [phone] Director: Roberto Anand MD Lymphocytes/100 WBC (Bld) 29.8 % Normal [facility] Comment on above: Performed By: #### C D:[id number], 217590, 758666, 437629, 262684, 7667526, 299990, 377123 ####[facility] [address] [place], [place] [id number]) [phone] Director: Roberto Anand MD Gage Count 0.31 x1000 Normal 0.10-1.00 [facility] Comment on above: Performed By: #### C D:[id number], 444074, 404949, 670146, 127752, 5803136, 633092, 650420 ####[facility] [address] [place], [place] [id number]) [phone] Director: Roberto Anand MD Monocytes/100 WBC (Bld) 9.9 % Normal [facility] Comment on above: Performed By: #### C D:304593093, 425629, 546848, 154899, 562425, 6583170, 075707, 101310 ####[facility] [address] [place], [place] [id number]) [phone] Director: Roberto Anand MD Neutrophil Count (ANC) 1.81 x1000 Normal 1.40-8.80 [facility] Comment on above: Performed By: #### C D:[id number], 765473, 911737, 159971, 093966, 1067874, 120194, 654340 ####[facility] [address] [place] [id number]) [phone] Director: Roberto Anand MD Neutrophils/100 WBC (Bld) 57.6 % Normal [facility] Comment on above: Performed By: #### C D:751247593, 053122, 045601, 170698, 027502, 1060812, 998201, 658999 ####[facility] [address] [place] [id number]) [phone] Director: Roberto Anand MD COMPMETAon 01-14-2023 Albumin [Mass/Vol] 3.9 g/dL Normal 3.4-5.0 [facility] Comment on above: Performed By: #### C D:[id number], 644835, 995504, 496629, 475147, 7879620, 206272, 672056 ####[facility] [address] [place], [place] [id number]) [phone] Director: Roberto Anand MD Albumin/Globulin [Mass ratio] 1.2 {ratio} Normal [facility] Comment on above: Performed By: #### C D:[id number], 988103, 677435, 039604, 127179, 4314163, 546675, 802881 ####[facility] [address] [place] [address] Medical Director: Roberto Anand MD Alk Phos 62 unit/L Normal 46-116 [facility] Comment on above: Performed By: #### C D:085887463, 619383, 847583, 748021, 381070, 8095459, 854745, 045026 ####[facility] [address] [place] [address] Medical Director: Roberto Anand MD Bilirubin [Mass/Vol] 0.60 mg/dL Normal 0.20-1.00 [facility] Comment on above: Result Comment: Use of this assay is not recommended for patients undergoing treatment with eltrombopag due to the potential for falsely elevated results. Performed By: #### C D:555540696, 692813, 710235, 708736, 776324, 4198038, 310405, 759757 ####[facility] [address] [place] [address] Medical Director: Roberto Anand MD Calcium [Mass/Vol] 9.5 mg/dL Normal 8.7-10.4 [facility] Comment on above: Performed By: #### C D:971306487, 980812, 219440, 309329, 108586, 6746053, 278414, 404797 ####[facility] [address] [place] [address] Medical Director: Roberto Anand MD Chloride [Moles/Vol] 106 mmol/L Normal 98-107 [facility] Comment on above: Performed By: #### C D:718944560, 870303, 845018, 396402, 325178, 2892355, 944219, 162266 ####[facility] [address] [place] [address] Medical Director: Roberto Anand MD CO2 [Moles/Vol] 26.0 mmol/L Normal 20.0-31.0 [facility] Comment on above: Performed By: #### C D:889966909, 328439, 582451, 687544, 510724, 7966987, 026876, 755738 ####[facility] [address] [place] [address] Medical Director: Roberto Anand MD Creatinine [Mass/Vol] 0.9 mg/dL Normal 0.6-1.1 [facility] Comment on above: Performed By: #### C D:801673133, 524997, 524163, 741822, 534136, 7280817, 704645, 118005 ####[facility] [address] [place] [address] Medical Director: Roberto Anand MD GFR AA >60 Normal [facility] Comment on above: Result Comment: Afri can Welsh GFR Calc Medical judgement is necessary to interpret GFR. The calculated GFR may not accurately reflect renal status in patients >70 years, women, acutely ill hospitalized patients and patients with acute renal failure or known renal disease. The MDRD GFR formula is valid only for adults greater than 18 years of age. Note: Creatinine clearance (not GFR) should be used for drug dosing. Performed By: #### C D:[id number], 773539, 612593, 361936, 074716, 5759290, 101856, 984815 ####[facility] [address] [place] [address] Medical Director: Roberto Anand MD Globulin (S) [Mass/Vol] 3.3 g/dL Normal [facility] Comment on above: Performed By: #### C D:777879017, 737792, 105407, 396065, 096712, 7749143, 636531, 644073 ####[facility] [address] [place] [address] Medical Director: Roberto Anand MD Glomerular Filtration Rate >60 Normal [facility] Comment on above: Result Comment: Non- GFR Calc Medical judgement is necessary to interpret GFR. The calculated GFR may not accurately reflect renal status in patients >70 years, women, acutely ill hospitalized patients and patients with acute renal failure or known renal disease. The MDRD GFR formula is valid only for adults greater than 18 years of age. Note: Creatinine clearance (not GFR) should be used for drug dosing. Performed By: #### C D:[id number], 242771, 710661, 308062, 196372, 2198034, 721088, 909241 ####[facility] [address] [place] [address] Medical Director: Roberto nAand MD Glucose [Mass/Vol] 98 mg/dL Normal 74-106 [facility] Comment on above: Performed By: #### C D:287861368, 411714, 750638, 726997, 441983, 2674800, 077421, 150189 ####[facility] [address] [place] [address] Medical Director: Roberto Anand MD GOT 18 unit/L Normal 15-37 [facility] Comment on above: Performed By: #### C D:246091186, 873981, 506841, 679742, 320477, 1197523, 460562, 602356 ####[facility] [address] [place] [address] Medical Director: Roberto Anand MD GPT 23 unit/L Normal 10-49 [facility] Comment on above: Performed By: #### C D:574968874, 061983, 506542, 161097, 676813, 5160957, 154385, 434290 ####[facility] [address] [place] [address] Medical Director: Roberto Anand MD Osmolality [Osmolality] 276 mosm/kg Normal 275-295 [facility] Comment on above: Performed By: #### C D:074629887, 147865, 521855, 403673, 967490, 4948112, 499121, 362662 ####[facility] [address] [place], [place] [id number]) [phone] Director: Roberto Anand MD Potassium [Moles/Vol] 3.9 mmol/L Normal 3.5-5.1 [facility] Comment on above: Result Comment: Spec imen slightly hemolyzed. Results may be affected. Performed By: #### C D:894160621, 764131, 580911, 964076, 946076, 2787303, 415626, 198203 ####[facility] [address] [place] [address] Medical Director: Roberto Anand MD Protein [Mass/Vol] 7.2 g/dL Normal 5.7-8.2 [facility] Comment on above: Result Comment: Tota l Protein results may be increased in patients receiving dextran as a blood volume spooling operator Performed By: #### C D:850257947, 107534, 032164, 611170, 642829, 1939255, 319689, 277366 ####[facility] [address] [place] [address] Medical Director: Roberto Anand MD Sodium [Moles/Vol] 137 mmol/L Normal 135-145 [facility] Comment on above: Performed By: #### C D:086569697, 825151, 913471, 056991, 507134, 5524270, 460086, 244301 ####[facility] [address] [place], [place] [address]) [phone] Director: Roberto Anand MD Urea nitrogen [Mass/Vol] 19 mg/dL Normal 9-23 [facility] Comment on above: Result Comment: - Ve nipuncture should occur prior to N-Acetyl Cysteine (NAC) or Metamizole (Sulpyrine) administration due to the potential for falsely depressed results. - Blood samples from some patients with monoclonal gammopathies may produce falsely elevated results Performed By: #### C D:[id number], 973185, 374706, 698351, 008049, 9372337, 686712, 828949 ####[facility] [address] [place] [address] Medical Director: Roberto Anand MD Urea nitrogen/Creatinine [Mass ratio] 21.1 mg/mg Normal [facility] Comment on above: Performed By: #### C D:377047075, 645817, 959705, 755665, 192766, 3358626, 406962, 921599 ####[facility] [address] [place] [address] Medical Director: Roberto Anand MD ED Adult Data - Texton 01-14 ED Adult Data - Text ED Adult Data Enter ed On: 01/14/2023 5:34 EDT Performed On: 01/14/2023 5:33 EDT by Birgit Lee RN Arrival Information Information Given by : Patient Referral Source ED : Home [facility] Mode of Arrival : Car / Walk-In Airway : Normal Breathing : Normal Circulation : Normal Birgit Lee RN - 01/14/2023 5:33 EDT Screening-General Meds Triage : Beta eduarda Accept Blood Products if Necessary : Yes Immunizations Current : Yes Last Tetanus : Unknown Status : N/A Preferred Verbal : [place] Birgit Lee RN - 01/14/2023 5:33 EDT Depression Screening Patient able to verbalize? : Yes Feeling Down, Depressed, Hopeless : Not at all Little Interest - Pleasure in Activities : Not at all Initial Depression Screen Score : 0 Depression Screening Score 0 : No IP Pt being evaluated or treated for BH conditions : No Birgit Lee RN - 01/14/2023 5:33 EDT Screening-Safety Abuse/Violence Concerns? : Patient denies Does the patient have a medically restricted extremity? : No Birgit Lee RN - 01/14/2023 5:33 EDT Problem List Problem List obtained from : Patient Birgit Lee RN - 01/14/2023 5:33 EDT (As Of: 01/14/2023 05:34:14 EDT) Problems(Active) Aneurysm (SNOMED CT :5424564623 ) Name of Problem: Aneurysm ; Recorder: Ellie Lyles RN; Confirmation: Confirmed ; Classification: Medical ; Code: 2899553078 ; Contributor System: PowerChart ; Last Updated: 04/27/2021 20:57 EDT ; Life Cycle Date: 04/27/2021 ; Life Cycle Status: Active ; Vocabulary: SNOMED CT Anxiety (SNOMED CT :89464730 ) Name of Problem: Anxiety ; Recorder: Elvira Monroe MA; Confirmation: Confirmed ; Classification: Medical ; Code: 28430550 ; Contributor System: PowerChart ; Last Updated: 03/10/2021 15:03 EDT ; Life Cycle Date: 03/10/2021 ; Life Cycle Status: Active ; Vocabulary: SNOMED CT GERD (gastroesophageal reflux disease) (SNOMED CT :353331677 ) Name of Problem: GERD (gastroesophageal reflux disease) ; Recorder: Elvira Monroe MA; Confirmation: Confirmed ; Classification: Medical ; Code: 137890797 ; Contributor System: PowerChart ; Last Updated: 03/10/2021 15:04 EDT ; Life Cycle Date: 03/10/2021 ; Life Cycle Status: Active ; Vocabulary: SNOMED CT Hypertension (SNOMED CT :5575693278 ) Name of Problem: Hypertension ; Recorder: Elvira Monroe MA; Confirmation: Confirmed ; Classification: Medical ; Code: 2680262290 ; Contributor System: PowerChart ; Last Updated: 03/10/2021 15:04 EDT ; Life Cycle Date: 03/10/2021 ; Life Cycle Status: Active ; Vocabulary: SNOMED CT Irregular heart rhythm (SNOMED CT :086333201 ) Name of Problem: Irregular heart rhythm ; Recorder: Elvira Monroe MA; Confirmation: Confirmed ; Classification: Medical ; Code: 100667292 ; Contributor System: PowerChart ; Last Updated: 03/10/2021 15:04 EDT ; Life Cycle Date: 03/10/2021 ; Life Cycle Status: Active ; Vocabulary: SNOMED CT Renal stone (SNOMED CT :829586410 ) Name of Problem: Renal stone ; Recorder: Ellie Lyles RN; Confirmation: Confirmed ; Classification: Medical ; Code: 680910288 ; Contributor System: HypereightChart ; Last Updated: 04/27/2021 20:57 EDT ; Life Cycle Date: 04/27/2021 ; Life Cycle Status: Active ; Vocabulary: SNOMED CT Sleep apnea (SNOMED CT :149192388 ) Name of Problem: Sleep apnea ; Recorder: Elvira Monroe MA; Confirmation: Confirmed ; Classification: Medical ; Code: 479519033 ; Contributor System: HypereightChart ; Last Updated: 03/10/2021 15:04 EDT ; Life Cycle Date: 03/10/2021 ; Life Cycle Status: Active ; Vocabulary: SNOMED CT Diagnoses(Active) Palpitations Date: 01/14/2023 ; Diagnosis Type: Reason For Visit ; Confirmation: Confirmed ; Clinical Dx: Palpitations ; Classification: Medical ; Clinical Service: Non-Specified ; Code: PNED ; Probability: 0 ; Diagnosis Code: [id number] Procedure History ED Devices Present on Arrival To ED : None Urinary Catheter Present on Admit to ED : No Birgit Lee RN - 01/14/2023 5:33 EDT - Procedure History (As Of: 01/14/2023 05:34:14 EDT) Anesthesia Minutes: 0 ; Procedure Name: No past history of procedure ; Procedure Minutes: 0 ; Last Reviewed Dt/Tm: 01/14/2023 05:34:01 EDT Social History Does pt have any alcohol,drugs or tobacco : No Do you consume Alcohol : No Social History obtained from : Patient Birgit Lee RN - 01/14/2023 5:33 EDT Social History (As Of: 01/14/2023 05:34:14 EDT) Alcohol: Beer, Daily (Last Updated: 03/08/2021 16:12:02 EDT by Ally Albarado RN) Tobacco: Denies Tobacco Use Cigars (Last Updated: 03/10/2021 15:05:41 EDT by Elvira Monroe MA) Substance Abuse: Denies Substance Abuse (Last Updated: 03/08/2021 16:12:08 EDT by Ally Albarado RN ) Infection Screening Last Physical Overnight Location of the Patient : Personal Residence Travel outside [place] within past 30 days : No Exposure AND/OR close contact with a person under investigation or laboratory-confirmed COVID-19 ind (more content not included)... Normal [facility] ED Discharge Educationon ED Discharge Education Cardiovascular Palpitations: Care Instructions Overview Heart palpitations are the uncomfortable sensation that your heart is beating fast or irregularly. You might feel pounding or fluttering in your chest. It might feel like your heart is skipping a beat. Palpitations may be caused by a heart problem. But they also occur because of many other things. These include other health problems, stress, exercise, or use of alcohol, caffeine, or nicotine. Some prescription medicines and ivga-mcm-koejewr medicines can also cause heart palpitations. Nearly everyone has palpitations from time to time. Depending on your symptoms, your doctor may need to do more tests to try to find the cause of your palpitations. Follow-up care is a liriano part of your treatment and safety. Be sure to make and go to all appointments, and call your doctor if you are having problems. It's also a good idea to know your test results and keep a list of the medicines you take. How can you care for yourself at home? ? If they trigger palpitations, limit or avoid alcohol or caffeine. ? Do not smoke. If you need help quitting, talk to your doctor about stop-smoking programs and medicines. These can increase your chances of quitting for good. ? Ask your doctor whether you can take wbcj-rty-tgcpobu medicines (such as decongestants). These may cause palpitations. ? If you think you may have a problem with drug use, talk to your doctor. Certain drugs, such as cocaine and methamphetamine, can affect your heart rate and rhythm. ? If you have palpitations again, take deep breaths and try to relax. Or try any physical things that your doctor recommended. These may include bearing down or coughing. ? If you start to feel lightheaded, sit or lie down to avoid injuries that might result if you pass out and fall down. ? If your doctor recommends it, keep a record of your palpitations and bring it to your next doctor's appointment. Write down: ? The date and time. ? Your pulse. (If your heart is beating fast, it may be hard to count your pulse.) ? If your heart rhythm was regular or irregular. ? What you were doing when the palpitations started. ? How long the palpitations lasted. ? Any other symptoms. ? What may have helped your symptoms go away. ? If an activity causes palpitations, slow down or stop. Talk to your doctor before you do that activity again. ? Take your medicines exactly as prescribed. Call your doctor if you think you are having a problem with your medicine. When should you call for help? Call 911 anytime you think you may need emergency care. For example, call if: ? You passed out (lost consciousness). ? You have symptoms of a heart attack. These may include: ? Chest pain or pressure, or a strange feeling in the chest. ? Sweating. ? Shortness of breath. ? Pain, pressure, or a strange feeling in the back, neck, jaw, or upper belly or in one or both shoulders or arms. ? Lightheadedness or sudden weakness. ? A fast or irregular heartbeat. After you call 911, the video control operator may tell you to chew 1 adult-strength or 2 to 4 low-dose aspirin. Wait for an ambulance. Do not try to drive yourself. ? You have symptoms of a stroke. These may include: ? Sudden numbness, tingling, weakness, or loss of movement in your face, arm, or leg, especially on only one side of your body. ? Sudden vision changes. ? Sudden trouble speaking. ? Sudden confusion or trouble understanding simple statements. ? Sudden problems with walking or balance. ? A sudden, severe headache that is different from past headaches. Call your doctor now or seek immediate medical care if: ? You have heart palpitations and: ? Are dizzy or lightheaded, or you feel like you may faint. ? Have new or increased shortness of breath. Watch closely for changes in your health, and be sure to contact your doctor if: ? You continue to have heart palpitations. Where can you learn more? Go to [email or web address] Enter R508 in the search box to learn more about Palpitations: Care Instructions. Current as of: October 02, 2021 Content Version: 13.3 ? [employer]. Care instructions adapted under license by your healthcare professional. If you have questions about a medical condition or this instruction, always ask your healthcare professional. [employer] disclaims any warranty or liability for your use of this information. Normal [facility] ED Emergency Severity Index Adult-Texton 01-14-2023 ED Emergency Severity Index Adult-Text WILMAN - Adult Entered On: 01/14/2023 5:22 EDT Performed On: 01/14/2023 5:22 EDT by Birgit Lee RN DCP GENERIC CODE Visit Reason : PALPITATIONS Tracking Triage Date/Time : 01/14/2023 05:22 EDT Tracking Reg Status : Requested Tracking Acuity : 2-Emergent Tracking Group : [facility] Tracking Birgit Lee RN - 01/14/2023 5:22 EDT Normal [facility] ED Nrsing Adlt Triage Sep Sc rning - Texton 01-14-2023 ED Nrsing Adlt Triage Sep Scrning - Text ED Nursing Adult Triage Sepsis Screening Tool Entered On: 01/14/2023 5:33 EDT Performed On: 01/14/2023 5:33 EDT by Birgit Lee RN Adult Sepsis Screening Sepsis Infection Screening ED : No Birgit Lee RN - 01/14/2023 5:33 EDT Normal [facility] ED Patient Summaryon 023 ED Patient Summary [facility] Emergency Department Discharge Instructions [address] [place] [address] (Patient Copy) Name: HOSEA ALVAREZ : 1970 Allergies: MiraLax Diagnosis: Heart palpitations Visit Date: 01/14/2023 05:22:11 [facility]#: [id number] Current Date Time: 01/14/2023 11:40:16 Address: [address] [place] [address] Phone: [phone] Primary Care Provider: Name: VIRAL AMADO Phone: [phone] Emergency Department Care Providers: Primary Physician: NADIRA HAZEL MD Thank you for choosing [facility] for your emergency care. You are very important to us. Our goal is to demonstrate our high quality medical care, and provide you with a very good patient experience. You may receive a survey about our service. Please take the time to complete the survey and return it so we can continue to enhance our service. Thank you again for allowing the [facility] Emergency Department to care for your medical needs. If you have questions about your care or follow up information please contact us at [phone]. Follow-Up Instructions HOSEA ALVAREZ has been given these follow-up instructions: With: Address: When: CHRISTY MANNING, Oncology/Hematology [address] [facility], [place] [address] [phone] Business (1) Within 3 to 5 days With: Address: When: RADHA GUADALUPE, Cardiology [address] [facility], [address] [place] [phone] Business (1) Within 3 to 5 days With: Address: When: DR FAUSTINA HOYT ON STAFF [address] [facility], [place] [id number] [phone] Business (1) Within 3 to 5 days Patient Education Materials HOSEA ALVAREZ has been given the following patient education materials: Palpitations: Care Instructions Overview Heart palpitations are the uncomfortable sensation that your heart is beating fast or irregularly. You might feel pounding or fluttering in your chest. It might feel like your heart is skipping a beat. Palpitations may be caused by a heart problem. But they also occur because of many other things. These include other health problems, stress, exercise, or use of alcohol, caffeine, or nicotine. Some prescription medicines and dcyo-wye-fxaqhlp medicines can also cause heart palpitations. Nearly everyone has palpitations from time to time. Depending on your symptoms, your doctor may need to do more tests to try to find the cause of your palpitations. Follow-up care is a liriano part of your treatment and safety. Be sure to make and go to all appointments, and call your doctor if you are having problems. It's also a good idea to know your test results and keep a list of the medicines you take. How can you care for yourself at home? ? If they trigger palpitations, limit or avoid alcohol or caffeine. ? Do not smoke. If you need help quitting, talk to your doctor about stop-smoking programs and medicines. These can increase your chances of quitting for good. ? Ask your doctor whether you can take vzis-byx-iaojfns medicines (such as decongestants). These may cause palpitations. ? If you think you may have a problem with drug use, talk to your doctor. Certain drugs, such as cocaine and methamphetamine, can affect your heart rate and rhythm. ? If you have palpitations again, take deep breaths and try to relax. Or try any physical things that your doctor recommended. These may include bearing down or coughing. ? If you start to feel lightheaded, sit or lie down to avoid injuries that might result if you pass out and fall down. ? If your doctor recommends it, keep a record of your palpitations and bring it to your next doctor's appointment. Write down: ? The date and time. ? Your pulse. (If your heart is beating fast, it may be hard to count your pulse.) ? If your heart rhythm was regular or irregular. ? What you were doing when the palpitations started. ? How long the palpitations lasted. ? Any other symptoms. ? What may have helped your symptoms go away. ? If an activity causes palpitations, slow down or stop. Talk to your doctor before you do that activity again. ? Take your medicines exactly as prescribed. Call your doctor if you think you are having a problem with your medicine. When should you call for help? Call 911 anytime you think you may need emergency care. For example, call if: ? You passed out (lost consciousness). ? You have symptoms of a heart attack. These may include: ? Chest pain or pressure, or a strange feeling in the chest. ? Sweating. ? Shortness of breath. ? Pain, pressure, or a strange feeling in the back, neck, jaw, or upper belly or in one or both shoulders or arms. ? Lightheadedness or sudden weakness. ? A fast or irregular heartbeat. After you call 911, the o (more content not included)... Normal [facility] ED Physician Reporton 2022 ED Physician Report Patient: HOSEA ALVAREZ Age: 52 years Sex: Male : 1970 Associated Diagnoses: Heart palpitations Author: HOWARD LEPE PA-C Basic Information Time seen: Date & time 01/14/2023 06:05:00. History source: Patient. History of Present Illness The patient presents with heart racing and palpitations. The onset was just prior to arrival. The course/duration of symptoms is resolved. Character of symptoms fast pounding. The degree at onset was moderate. The degree at present is none. Patient presented to the emergency department complaining of palpitations and heart racing. Patient states he woke up from a dream in which she was running and awoke to find his heart racing. Patient states history of palpitations in the past and is prescribed metoprolol. Patient states he has not been able to fill the metoprolol because he has kzk-jg-enrio Medicaid and states that he cannot fill prescriptions on his Medicaid in [place]. No chest pain. Patient's heart rate currently is 80 bpm and regular. Patient states he also has history of mitral valve prolapse and a thoracic aneurysm which is being monitored by his doctor and [place].. Review of Systems Constitutional symptoms: Negative except as documented in HPI. Skin symptoms: Negative except as documented in HPI. Eye symptoms: Negative except as documented in HPI. ENMT symptoms: Negative except as documented in HPI. Respiratory symptoms: Negative except as documented in HPI. Cardiovascular symptoms: Negative except as documented in HPI. Gastrointestinal symptoms: Negative except as documented in HPI. Genitourinary symptoms: Negative except as documented in HPI. Psychiatric symptoms: Negative except as documented in HPI. Endocrine symptoms: Negative except as documented in HPI. Allergy/immunologic symptoms: Negative except as documented in HPI. Neurologic symptoms Negative except as documented in HPI. Additional review of systems information: All systems reviewed as documented in chart. Health Status Allergies: Allergic Reactions (Selected) Severity Not Documented MiraLax- No reactions were documented.. Medications: (Selected) Documented Medications Documented losartan 25 mg oral tablet: 25 mg = 1 tabs, ORAL, DAILY, 0 Refill(s) metoprolol succinate 25 mg oral capsule, extended release: 25 mg = 1 caps, ORAL, DAILY, 90 caps, 0 Refill(s). Past Medical/ Family/ Social History Medical history: Hypertension GERD Anxiety. Surgical history: No past history of procedure (CPT4 [id number]).. Family history: Pancreatic cancer Other Ovarian cancer.. Mother . Social history: Alcohol use: Regularly, Tobacco use: Occasionally. Physical Examination Vital Signs Vital Signs 01/14/2023 6:25 EDT Heart Rate Monitored 74 bpm NORMAL Peripheral Pulse Rate 82 bpm NORMAL Respiratory Rate 19 br/min NORMAL Systolic Blood Pressure 126 mmHg NORMAL Diastolic Blood Pressure 86 mmHg NORMAL Mean Arterial Pressure, Cuff 97 mmHg SpO2 98 % NORMAL Oxygen Therapy Room air 01/14/2023 5:39 EDT SpO2 94 % NORMAL 01/14/2023 5:36 EDT Temperature Oral 36.9 degC NORMAL Peripheral Pulse Rate 73 bpm NORMAL Respiratory Rate 18 br/min NORMAL Systolic Blood Pressure 141 mmHg HI Diastolic Blood Pressure 99 mmHg HI SpO2 96 % NORMAL Oxygen Therapy Room air Weight Measured Type of Scale Bed Scale (digital) Height/Length Dosing 167.64 cm Weight Dosing 94.5 kg Body Mass Index Dosing 34 . General: Alert, no acute distress. Skin: Warm, dry, pink. Head: Normocephalic. Neck: Supple, trachea midline, no tenderness. Eye: Normal conjunctiva. Ears, nose, mouth and throat: Oral mucosa moist. Cardiovascular: Regular rate and rhythm. Respiratory: Lungs are clear to auscultation, respirations are non-labored, breath sounds are equal. Chest wall: No tenderness. Back: Nontender. Musculoskeletal: No tenderness, no deformity. Gastrointestinal: Soft, Nontender, Non distended. Genitourinary Psychiatric: Cooperative, appropriate mood & affect. Neurological No focal neurological deficit observed. Medical Decision Making Differential Diagnosis:: Tachycardia, paroxysmal supraventricular tachycardia, premature ventricular contraction, anxiety, hyperthyroidism. EKG: Normal sinus rhythm, 71 bpm, no acute ST-T pattern. Results review: Lab results : Laboratory 01/14/2023 8:24 EDT Estimated Creatinine Clearance 87.63 mL/min 01/14/2023 7:47 EDT BUN 19 mg/dL NORMAL Na 137 mmol/L NORMAL K 3.9 mmol/L NORMAL Chloride 106 mmol/L NORMAL CO2, venous 26.0 mmol/L NORMAL Glucose 98 mg/dL NORMAL Creatinine 0.9 mg/dL NORMAL Total Protein 7.2 g/dL NORMAL Calcium 9.5 mg/dL NORMAL Bilirubin, Total 0.60 mg/dL NORMAL Alk Phos 62 unit/L NORMAL GOT 18 unit/L NORMAL GPT 23 unit/L NORMAL BUN/Creat Ratio 21.1 NA Calculated Osmolality 276 mOsm/kg NORMAL Globulin 3.3 g/dL NA A/G Ratio 1.2 NA Magnesium 1.8 mg/dL NORMAL Fr (more content not included)... Normal [facility] ED Pre-Arrival Formon 2022 ED Pre-Arrival Form Pre-Arrival Summary Name: GEREMIAS, WHEN CLEAN, Current Date: 01/14/2023 05:22:34 EDT Gender: Date of : Age: Pre-Arrival Type: EMS ETA: 01/14/2023 05:45:00 EDT Primary Care Physician: Presenting Problem: Pre-Arrival User: Birgit Lee RN Referring Source: Location: 1 [facility] Emergency Department [address] [place] [address]. [place] [address] Notes: Vital Signs: Doctor Call Back: DNR Status: Miscellaneous Issues: Normal [facility] ED Progress Noteon 3 ED Progress Note Pt arrived from home via EMS. Per pt he woke up from a bad dream and started having heart palpitations. Pt now has no complaints. Pt is laying in bed and in no distress and denies any complaints. Assumed care of Pt. No distress noted. Safety maintained. 1105- Pt. discharged home in stable condition. Educated Pt. on importance of F/U appointment, medication compliance, and when to return to ED if needed. Pt. states understanding. Coupons for prescriptions given to Pt. Pt. left ambulatory with steady gait. Normal [facility] ED Triage Adult-Texton 01-14 ED Triage Adult-Text ED Triage Entered O n: 01/14/2023 5:36 EDT Performed On: 01/14/2023 5:36 EDT by Misty OVERTON, Grupo Triage (As Of: 01/14/2023 05:36:55 EDT) Problems(Active) Aneurysm (SNOMED CT :7047582183 ) Name of Problem: Aneurysm ; Recorder: Ellie Lyles RN; Confirmation: Confirmed ; Classification: Medical ; Code: [id number] ; Contributor System: PowerChart ; Last Updated: 04/27/2021 20:57 EDT ; Life Cycle Date: 04/27/2021 ; Life Cycle Status: Active ; Vocabulary: SNOMED CT Anxiety (SNOMED CT :70464692 ) Name of Problem: Anxiety ; Recorder: Elvira Monroe MA; Confirmation: Confirmed ; Classification: Medical ; Code: 44002351 ; Contributor System: PowerChart ; Last Updated: 03/10/2021 15:03 EDT ; Life Cycle Date: 03/10/2021 ; Life Cycle Status: Active ; Vocabulary: SNOMED CT GERD (gastroesophageal reflux disease) (SNOMED CT :543565893 ) Name of Problem: GERD (gastroesophageal reflux disease) ; Recorder: Elvira Monroe MA; Confirmation: Confirmed ; Classification: Medical ; Code: 833532963 ; Contributor System: PowerChart ; Last Updated: 03/10/2021 15:04 EDT ; Life Cycle Date: 03/10/2021 ; Life Cycle Status: Active ; Vocabulary: SNOMED CT Hypertension (SNOMED CT :6309955099 ) Name of Problem: Hypertension ; Recorder: Elvira Monroe MA; Confirmation: Confirmed ; Classification: Medical ; Code: [id number] ; Contributor System: PowerChart ; Last Updated: 03/10/2021 15:04 EDT ; Life Cycle Date: 03/10/2021 ; Life Cycle Status: Active ; Vocabulary: SNOMED CT Irregular heart rhythm (SNOMED CT :831773570 ) Name of Problem: Irregular heart rhythm ; Recorder: Elvira Monroe MA; Confirmation: Confirmed ; Classification: Medical ; Code: 120099272 ; Contributor System: PayRange ; Last Updated: 03/10/2021 15:04 EDT ; Life Cycle Date: 03/10/2021 ; Life Cycle Status: Active ; Vocabulary: SNOMED CT Renal stone (SNOMED CT :523663366 ) Name of Problem: Renal stone ; Recorder: Ellie Lyles RN; Confirmation: Confirmed ; Classification: Medical ; Code: 437714294 ; Contributor System: PayRange ; Last Updated: 04/27/2021 20:57 EDT ; Life Cycle Date: 04/27/2021 ; Life Cycle Status: Active ; Vocabulary: SNOMED CT Sleep apnea (SNOMED CT :739440690 ) Name of Problem: Sleep apnea ; Recorder: Elvira Monroe MA; Confirmation: Confirmed ; Classification: Medical ; Code: [id number] ; Contributor System: PayRange ; Last Updated: 03/10/2021 15:04 EDT ; Life Cycle Date: 03/10/2021 ; Life Cycle Status: Active ; Vocabulary: SNOMED CT Diagnoses(Active) Palpitations Date: 01/14/2023 ; Diagnosis Type: Reason For Visit ; Confirmation: Confirmed ; Clinical Dx: Palpitations ; Classification: Medical ; Clinical Service: Non-Specified ; Code: PNED ; Probability: 0 ; Diagnosis Code: [id number] (As Of: 01/14/2023 05:36:55 EDT) Allergies (Active) MiraLax Estimated Onset Date: Unspecified ; Created By: Elvira Monroe MA; Reaction Status: Active ; Category: Drug ; Substance: MiraLax ; Type: Allergy ; Updated By: Elvira Monroe MA; Reviewed Date: 09/10/2021 14:19 EST Vitals/Ht/Wt Temperature Oral : 36.9 degC Pulse Rate : 73 bpm Respiratory Rate : 18 br/min Systolic Blood Pressure : 141 mmHg (HI) Diastolic Blood Pressure : 99 mmHg (HI) SpO2 : 96 % Oxygen Therapy : Room air Pain Symptoms : No Height/Length Dosing : 167.64 cm(Converted to: 5.50 ft, 66.00 in) Weight Measured Type of Scale : Bed Scale (digital) Weight Dosing : 94.5 kg(Converted to: 3,333.390 oz, 208.337 lb) Body Mass Index Dosing : 34 Grupo Jay RN - 01/14/2023 5:36 EDT Normal [facility] HEMOon 01-14-2023 DIFF? No Normal [facility] Comment on above: Performed By: #### C D:[id number], 441131, 516178, 409651, 211369, 6841378, 186251, 189846 ####[facility] [address] [place], [place] [id number] Medical Director: Roberto Anand MD Erythrocyte distribution width (RBC) [Ratio] 13.5 % Normal 11.5-14.5 [facility] Comment on above: Performed By: #### C D:[id number], 263675, 466496, 737206, 986830, 0899028, 278711, 284078 ####[facility] [address] [place], [place] [id number] Medical Director: Roberto Anand MD Hematocrit (Bld) [Volume fraction] 41.1 % Normal 41.0-52.0 [facility] Comment on above: Performed By: #### C D:[id number], 067942, 519418, 567553, 732800, 7096844, 877328, 358657 ####[facility] [address] [place], [place] [address] Medical Director: Roberto Anand MD Hemoglobin (Bld) [Mass/Vol] 13.9 g/dL Normal 13.5-17.5 [facility] Comment on above: Performed By: #### C D:[id number], 106216, 350054, 897901, 521681, 6782153, 543819, 047459 ####[facility] [address] [place], [place] [id number]) [phone] Director: Roberto Anand MD Instr WBC 3.1 Normal [facility] Comment on above: Performed By: #### C D:[id number], 778243, 866229, 393970, 303558, 1394674, 312442, 756352 ####[facility] [address] [place], [place] [id number]) [phone] Director: Roberto Anand MD MCH (RBC) [Entitic mass] 29.0 pg Normal 27.0-34.0 [facility] Comment on above: Performed By: #### C D:[id number], 438774, 363485, 830547, 090076, 3186961, 535667, 381340 ####[facility] [address] [place] [address] Medical Director: Roberto Anand MD MCHC (RBC) [Mass/Vol] 34.0 g/dL Normal 32.0-37.0 [facility] Comment on above: Performed By: #### C D:[id number], 891806, 993000, 205058, 135414, 8155125, 193107, 688235 ####[facility] [address] [place] [address] Medical Director: Roberto Anand MD MCV (RBC) [Entitic vol] 85.3 fL Normal 80.0-100.0 [facility] Comment on above: Performed By: #### C D:[id number], 892289, 580699, 242832, 102356, 3186586, 107877, 341947 ####[facility] [address] [place] [address] Medical Director: Roberto Anand MD MDW 18.63 Normal 13.98-20.00 [facility] Comment on above: Result Comment: MDW Interpretation: - For adults age 18-89 in ED, MDW >20.0 may be associated with a higher risk of Sepsis during the first 12 hours of hospital admission. - The predictive value of MDW for identifying Sepsis in patients with hematological abnormalities has not been established. - Interpret with caution when immature granulocytes, variant lymphs, or blast cells are noted on the differential. - Confirm patient age is within intended use population (18-89 years) for MDW. - For ED adults suspected of Sepsis, MDW less than or equal to 20.0 does not rule out Sepsis or the risk of Sepsis. Performed By: #### C D:[id number], 720500, 679061, 380262, 054929, 1088284, 921749, 333820 ####[facility] [address] [place] [address] Medical Director: Roberto Anand MD Nucleated RBC 0 /100WBC Normal [facility] Comment on above: Performed By: #### C D:[id number], 845663, 278390, 298706, 290467, 0387631, 674829, 209786 ####[facility] [address] [place] [address] Medical Director: Roberto Anand MD Platelet 130 x10 Low 150-450 [facility] Comment on above: Performed By: #### C D:[id number], 320659, 048139, 575593, 355372, 3878108, 074218, 421348 ####[facility] [address] [place] [address] Medical Director: Roberto Anand MD Platelet mean volume (Bld) [Entitic vol] 8.8 fL Normal 7.4-10.4 [facility] Comment on above: Performed By: #### C D:[id number], 863451, 196732, 366498, 942421, 1851068, 327950, 554928 ####[facility] [address] [place] [address] Medical Director: Roberto Anand MD RBC 4.81 x10 Normal 4.70-6.10 [facility] Comment on above: Result Comment: Note : RBC morphology is normal unless otherwise stated. Evaluation performed only if differential is requested. Performed By: #### C D:[id number], 296285, 654119, 551265, 151568, 8054190, 265573, 741012 ####[facility] [address] [place] [address] Medical Director: Roberto Anand MD WBC 3.1 x10 Low 4.5-11.0 [facility] Comment on above: Performed By: #### C D:[id number], 153881, 560497, 681020, 673184, 4358308, 253167, 519226 ####[facility] [address] [place] [address] Medical Director: Roberto Anand MD MG LEVELon 01-14-2023 Magnesium [Mass/Vol] 1.8 mg/dL Normal 1.6-2.6 [facility] Comment on above: Performed By: #### C D:[id number], 839801, 743868, 502614, 073476, 8341286, 051554, 337294 ####[facility] [address] [place] [address] Medical Director: Roberto Anand MD PT INRon 01-14-2023 INR Coag (PPP) [Relative time] 1.0 {INR} Normal [facility] Comment on above: Result Comment: INR Reference Range: Normal reference range for INR on patients not on anticoagulant therapy: 0.9-1.1 General therapeutic range for patients on anticoagulant therapy: 2.0-3.5 Performed By: #### C D:[id number], 484103, 968958, 942534, 386933, 3221696, 236820, 139774 ####[facility] [address] [place] [address] Medical Director: Roberto Anand MD Protime Patient 11.2 seconds Normal 9.8-13.4 [facility] Comment on above: Performed By: #### C D:[id number], 618518, 751528, 997583, 809378, 1491972, 226808, 659337 ####[facility] [address] [place] [address] Medical Director: Roberto Anand MD Pharmacy Clinical Interventi ons-Texton 01-14-2023 Pharmacy Clinical Interventions-Text Pharmacy Clinical Interventions Entered On: 01/14/2023 6:56 EDT Performed On: 01/14/2023 6:56 EDT by Jenniffer Thomas RPh Interventions Intervention Type Pharmacy : Medication history Pharmacy Order Initiated By : Pharmacist Clinical Importance Pharmacy : Potentially severe Prescriber Response Pharmacy : Accepted Patient Clinical Outcome Pharmacy : Not applicable Pharmacist Intervention Time : 5 Jenniffer Thomas RPh - 01/14/2023 6:56 EDT Med History Med History Grid Location : ED Medications reviewed with : Patient Medications added : none Medications changed : none Jenniffer Thomas RPh - 01/14/2023 6:56 EDT Normal [facility] SODIUM CHLORIDE SYR/VIAL 10M Bart 01-14-2023 SODIUM CHLORIDE SYR/VIAL 10ML Pharmacy Clinical Interventions Entered On: 01/14/2023 6:28 EDT Performed On: 01/14/2023 6:27 EDT by Jenniffer Thomas RPh Interventions Intervention Type Pharmacy : Order clarification Pharmacy Order Initiated By : Pharmacist Clinical Importance Pharmacy : Potentially major Prescriber Response Pharmacy : Accepted Patient Clinical Outcome Pharmacy : Not applicable Pharmacist Intervention Time : 5 Pharmacy Additional Information : verified w/ PA - changed metoprolol to pt's home dose 25 mg Jenniffer Thomas RPh - 01/14/2023 6:27 EDT Normal [facility] Comment on above: Order Comment: Perip heral Saline Lock saline lock flush per protocol. if picc line dose is 10ml; saline lock flush per protocol. if picc line dose is 10ml; THY GPon 01-14-2023 Free T4 [Mass/Vol] 1.15 ng/dL Normal 0.89-1.76 [facility] Comment on above: Result Comment: - Th e anticonvulsant drug phenytoin may interfere with total and free T4 levels due to competition for TBG binding sites - Free T4 values may be decreased in patients with non-thyroidal conditions and in patients taking carbamazepine Performed By: #### C D:[id number], 168718, 819491, 601831, 429035, 7772867, 568505, 929657 ####[facility] [address] [place] [address] Medical Director: Roberto Anand MD TSH Qn 0.89 m[IU]/L Normal 0.55-4.78 [facility] Comment on above: Result Comment: - Do not use samples that contain fluorescein. Fluorescein levels > 0.24 ?g/mL may decrease results in this assay - Patients undergoing retinal fluorescein angiography can retain amounts of fluorescein in the body for up to 48?72 hours post-treatment. Such samples can produce falsely depressed values when tested with this assay, and should not be tested Performed By: #### C D:[id number], 384692, 706796, 667819, 904008, 8148918, 591237, 915642 ####[facility] [address] [place] [address] Medical Director: Roberto Anand MD TROPONIN HS 0HRon 01-14-2023 Troponin HS 0 Hr 3 pg/mL Normal 3-53 [facility] Comment on above: Result Comment: Spec imens from some individuals with pathologically high gamma globulin levels may demonstrate depressed troponin values Performed By: #### C D:[id number], 147363, 628734, 653588, 753680, 0192220, 731710, 665050 ####[facility] [id number] [place] [address] Medical Director: Roberto Anand MD XR CHEST PORTABLEon 01-15-20 XR CHEST PORTABLE EXAM: XR Chest, 1 View CLINICAL HISTORY: The patient is 52 years old and is Male; CHEST PAIN TECHNIQUE: Frontal view of the chest. COMPARISON: Chest radiograph from 09/10/2021 FINDINGS: LUNGS: Unremarkable. No consolidation. PLEURAL SPACE: No significant pleural effusion. No obvious pneumothorax. HEART: No significant enlargement of the cardiac silhouette. MEDIASTINUM: Unremarkable. BONES/JOINTS: Degenerative changes of the spine. No acute fractures visualized. IMPRESSION: No acute findings visualized in the chest. Electronically signed by: Sharee Starks MD 01/14/2023 5:46 AM CDT Technologist: SAMRA Dictated By: SHAREE STARKS MD Signed By: SHAREE STARKS MD Signed Out: 01/14/23 06:46:04 Normal [facility] Clinical Case Managementon 0 11-23-2021 Clinical Case Management Diagnosis/Problems Assessed Bipolar 2 disorder (296.89) (F31.81) Ascending aortic aneurysm (441.2) (I71.2) ETOH abuse (305.00) (F10.10) Provider Impressions Nutrition Services Assistant met with patient on the phone to provide supportive counseling services related to his medical care. Patient presents as in the precontemplation stage of change and is making minimal progress on this objective. Nutrition Services Assistant provided empathic listening to support patient in discussing his thoughts and feelings regarding his healthcare. Patient notes that he learned he will not be able to be reinstated with his vascular surgeon, despite making a call to compliance. Patient notes that he is upset and feels that is consistently mistreating people with disabilities. Patient requests Writers support in filing a lawsuit against , claiming that he believes there is a systemic problem of providers mistreating people with mental illness. Nutrition Services Assistant notes that while Patient can do whatever he feels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 progress on this objective. Nutrition Services Assistant spoke to patient to check in regarding current symptoms and how patient is managing in the community. Patient notes that he is in the process of attempting to change his care over to [facility] due to being kicked out of several practices within . Patient requesting support in connecting with [facility] staff, and Nutrition Services Assistant notes that Nutrition Services Assistant does not have as many connections in that system. Patient redirected the conversation to Nutrition Services Assistant accompanying him on a trip around the [facility] to outreach local homeless encampments. When Nutrition Services Assistant noted that this is not part of Nutrition Services Assistant's job, patient suggests that Nutrition Services Assistant and patient do this after hours or on a weekend, to which Nutrition Services Assistant did not agree as it is inappropriate for Nutrition Services Assistant to have contact with patient after work hours. Patient lacks insight into Nutrition Services Assistant's role in his care, and was upset by Nutrition Services Assistant's refusal to engage in homeless outreach with patient. Nutrition Services Assistant agreed that homeless outreach is an important service that should be provided, but informed patient that this is not Nutrition Services Assistant's role. Patient again demonstrates lack of understanding regarding this, but agreed to continue meeting with Nutrition Services Assistant on an ongoing basis to discuss his healthcare concerns. Nutrition Services Assistant to follow up next week. Chief Complaint A telephone visit (audio only) between the patient (at the originating site) and the provider (at the distant site) was utilized to provide this telehealth service. Verbal consent was requested and obtained from HOSEA ALVAREZ on this date, 09/08/2021 10:00 AM , for a telehealth visit. Nutrition Services Assistant spoke with patient on the phone to provide CPST service of symptom monitoring related to his health problems. History of Present Illness Patient presents as in good spirits, alert and oriented x3. Patient somewhat unsure of correctional counselor/case manager's role in his care, requesting services that are not aligned with purpose of case management (e.g. coming out with patient to provide outreach to local homeless [facility]). Active Problems Problems Acute back pain (724.5) (M54.9) Anemia (285.9) (D64.9) Ascending aortic aneurysm (441.2) (I71.2) Bipolar 2 disorder (296.89) (F31.81) Chest pain (786.50) (R07.9) Chronic bilateral low back pain without sciatica (724.2,338.29) (M54.50,G89.29) Constipation (564.00) (K59.00) Costochondritis (733.6) (M94.0) COVID-19 (079.89) (U07.1) Esophageal spasm (530.5) (K22.4) Essential hypertension (401.9) (I10) ETOH abuse (305.00) (F10.10) GERD (gastroesophageal reflux disease) (530.81) (K21.9) Palpitations (785.1) (R00.2) Pancytopenia (284.19) (D61.818) Renal artery stenosis (440.1) (I70.1) Screening for colorectal cancer (V76.51,V76.41) (Z12.11,Z12.12) Segmental and somatic dysfunction of lumbar region (739.3) (M99.03) Social History Problems Current smoker (305.1) (F17.200) ETOH abuse (305.00) (F10.10) Former smoker (V15.82) (Z87.891) Regular alcohol consumption (V69.8) (Z78.9) Allergies Medication Caffeine Chest Pain;; Recorded By: Neil Billings; 06/28/2021 9:27:50 AM Erythromycin TABS Adverse Reaction; Gatrointestinal upset; Updated By: Meagan Baugh; 02/22/2021 3:30:50 PM polyethylene glycol 3350 Gatrointestinal upset; Recorded By: Antonia Cuenca; 02/16/2021 10:12:41 AM Current Meds Medication NameInstruction cloNIDine HCl - 0.2 MG Oral TabletTAKE 1 TABLET 3 TIMES DAILY. Dicyclomine HCl - 10 MG Oral Capsule Lidocaine Viscous HCl - 2 % Mouth/Throat Solutiontake one teaspoon and swish and spit four times a day as needed Losartan Potassium 25 MG Oral TabletTAKE 2 TABLETs DAILY DIRECTED. Losartan Potassium 50 MG Oral TabletTAKE 1 TABLET BY MOUTH EVERY DAY Metoprolol Succinate ER 25 MG Oral Tablet Extended Release 24 HourTAKE 1 TABLET DAILY. Nitroglycerin 0.4 MG Sublingual Tablet SublingualPLACE 1 TABLET UNDER THE TONGUE EVERY 5 MINUTES UP TO 3 DOSES NEEDED FOR CHEST PAIN (call 911 with 3rd dose). Senna Laxative 8.6 MG Oral TabletTake one tablet daily at bedtime Time Case Management Time: Prep time on date of the encounter: 0 minutes. Time spent with the client/family/caregiver on date of the encounter: 15 minutes. Other time spent on date of the encounter: 0 minutes. Total time on date of the encounter: 15 minutes Future Appointments Date/TimeProviderSpecial tySite 10/09/2021 01:45 PMCunnLily nuñez MDC[facility]iology[facility] Signatures Electronically signed by : STONE Trent; Sep 11 2021 10:45AM EST (Author) Normal [employer] ALCOHOLon 09-05-2021 Ethanol [Mass/Vol] mg/dL Normal [facility] Comment on above: Result Comment: FOR MEDICAL USE ONLY. . REF VALUES <10 Performed By: #### A LC #### [facility] [address] [place] [address] Alcohol, Serumon 09-05-2021 Ethanol [Mass/Vol] mg/dL [facility]-Ps[facility] chiat[facility] -[address] Work Phone: Comment on above: FOR MEDICAL USE ONLY . .REF VALUES <10 CBC AND DIFFERENTIALon 09-05 % AUTOMATED IMMATURE GRAN 0.6 % Normal 0.0 - 0.9 [facility] Comment on above: Result Comment: Kath ture Granulocyte Count (IG) includes promyelocytes, myelocytes and metamyelocytes but does not include bands. Percent differential counts (%) should be interpreted in the context of the absolute cell counts (cells/L). Performed By: #### C BCDF #### [facility] [address] [place] [address] Basophils (Bld) [#/Vol] 0.02 10*3/uL Normal 0.00 - 0.10 [facility] Comment on above: Performed By: #### C BCDF #### [facility] [address] [place] [address] Basophils/100 WBC (Bld) 0.6 % Normal 0.0 - 2.0 [facility] Comment on above: Performed By: #### C BCDF #### [facility] [address] [place] [address] Eosinophils (Bld) [#/Vol] 0.12 10*3/uL Normal 0.00 - 0.70 [facility] Comment on above: Performed By: #### C BCDF #### [facility] [address] [place] [address] Eosinophils/100 WBC (Bld) 3.3 % Normal 0.0 - 6.0 [facility] Comment on above: Performed By: #### C BCDF #### [facility] [address] [place] [address] Erythrocyte distribution width (RBC) [Ratio] 12.9 % Normal 11.5 - 14.5 [facility] Comment on above: Performed By: #### C BCDF #### [facility] [address] [place] [address] Hematocrit (Bld) [Volume fraction] 41.7 % Normal 41.0 - 52.0 [facility] Comment on above: Performed By: #### C BCDF #### [facility] [address] [place] [address] Hemoglobin (Bld) [Mass/Vol] 13.6 g/dL Normal 13.5 - 17.5 [facility] Comment on above: Performed By: #### C BCDF #### [facility] [address] [place] [address] Lymphocytes (Bld) [#/Vol] 0.96 10*3/uL Low 1.20 - 4.80 [facility] Comment on above: Performed By: #### C BCDF #### [facility] [address] [place] [address] Lymphocytes/100 WBC (Bld) 26.5 % Normal 13.0 - 44.0 [facility] Comment on above: Performed By: #### C BCDF #### [facility] [address] [place] [address] MCHC (RBC) [Mass/Vol] 32.6 g/dL Normal 32.0 - 36.0 [facility] Comment on above: Performed By: #### C BCDF #### [facility] [address] [place] [address] MCV (RBC) [Entitic vol] 88 fL Normal 80 - 100 [facility] Comment on above: Performed By: #### C BCDF #### [facility] [address] [place] [address] Monocytes (Bld) [#/Vol] 0.38 10*3/uL Normal 0.10 - 1.00 [facility] Comment on above: Performed By: #### C BCDF #### [facility] [address] [place] [address] Monocytes/100 WBC (Bld) 10.5 % Normal 2.0 - 10.0 [facility] Comment on above: Performed By: #### C BCDF #### [facility] [address] [place] [address] Neutrophils (Bld) [#/Vol] 2.12 10*3/uL Normal 1.20 - 7.70 [facility] Comment on above: Performed By: #### C BCDF #### [facility] [address] [place] [address] Neutrophils/100 WBC (Bld) 58.5 % Normal 40.0 - 80.0 [facility] Comment on above: Performed By: #### C BCDF #### [facility] [address] [place] [address] NUCLEATED RBC 0.0 /100 WBC Normal 0.0-0.0 [facility] Comment on above: Performed By: #### C BCDF #### [facility] [address] [place] [address] Platelets (Bld) [#/Vol] 134 10*3/uL Low 150 - 450 [facility] Comment on above: Performed By: #### C BCDF #### [facility] [address] [place] [address] RBC 4.75 x10E12/L Normal 4.50 - 5.90 [facility] Comment on above: Performed By: #### C BCDF #### [facility] [address] [place] [address] WBC (Bld) [#/Vol] 3.6 10*3/uL Low 4.4 - 11.3 [facility] Comment on above: Performed By: #### C BCDF #### [facility] [address] [place] [address] COMPREHENSIVE PANELon 2020 Albumin [Mass/Vol] 4.2 g/dL Normal 3.4 - 5.0 [facility] Comment on above: Performed By: #### C BCDF #### [facility] [address] [place] [address] ALP [Catalytic activity/Vol] 59 U/L Normal 33 - 120 [facility] Comment on above: Performed By: #### C BCDF #### [facility] [address] [place] [address] ALT [Catalytic activity/Vol] 23 U/L Normal 10 - 52 [facility] Comment on above: Result Comment: Yanni ents treated with Sulfasalazine may generate falsely decreased results for ALT. Performed By: #### C BCDF #### [facility] [address] [place] [address] Anion gap [Moles/Vol] 12 mmol/L Normal 10 - 20 [facility] Comment on above: Performed By: #### C BCDF #### [facility] [address] [place] [address] AST [Catalytic activity/Vol] 18 U/L Normal 9 - 39 [facility] Comment on above: Performed By: #### C BCDF #### [facility] [address] [place] [address] Bilirubin [Mass/Vol] 0.4 mg/dL Normal 0.0 - 1.2 [facility] Comment on above: Performed By: #### C BCDF #### [facility] [address] [place] [address] Calcium [Mass/Vol] 9.2 mg/dL Normal 8.6 - 10.6 [facility] Comment on above: Performed By: #### C BCDF #### [facility] [address] [place] [address] Chloride [Moles/Vol] 102 mmol/L Normal 98 - 107 [facility] Comment on above: Performed By: #### C BCDF #### [place] [address] [place] [address] Creatinine [Mass/Vol] 1.05 mg/dL Normal 0.50 - 1.30 [facility] Comment on above: Performed By: #### C BCDF #### [facility] [address] [place] [address] GFR- AM. >60 Normal >60 [facility] Comment on above: Result Comment: CALC ULATIONS OF ESTIMATED GFR ARE PERFORMED USING THE MDRD STUDY EQUATION FOR THE IDMS-TRACEABLE CREATININE METHODS. CLIN CHEM 2007;53:766-72 Performed By: #### C BCDF #### [facility] [address] [place] [address] GFR-NON AM. >60 Normal >60 [facility] Comment on above: Performed By: #### C BCDF #### [facility] [address] [place] [address] Glucose [Mass/Vol] 107 mg/dL High 74 - 99 [facility] Comment on above: Performed By: #### C BCDF #### [facility] [address] [place] [address] HCO3 (Bld) [Moles/Vol] 28 mmol/L Normal 21 - 32 [facility] Comment on above: Performed By: #### C BCDF #### [facility] [address] [place] [address] Potassium [Moles/Vol] 4.5 mmol/L Normal 3.5 - 5.3 [facility] Comment on above: Performed By: #### C BCDF #### [facility] [address] [place] [address] Protein [Mass/Vol] 6.9 g/dL Normal 6.4 - 8.2 [facility] Comment on above: Performed By: #### C BCDF #### [facility] [address] [place] [address] Sodium [Moles/Vol] 137 mmol/L Normal 136 - 145 [facility] Comment on above: Performed By: #### C BCDF #### [facility] [address] [place] [address] Urea nitrogen [Mass/Vol] 17 mg/dL Normal 6 - 23 [facility] Comment on above: Performed By: #### C BCDF #### [facility] [address] [place] [address] Complete Blood Count + Diffe dominickon 09-05-2021 Basophils/100 WBC (Bld) 0.6 % 0.0 - 2.0 [facility] [place] Work Phone: Erythrocyte distribution width (RBC) [Ratio] 12.9 % See Below [facility] [place] Work Phone: Comment on above: Reference Range: 11. 5 - 14.5 Hematocrit (Bld) [Volume fraction] 41.7 % See Below [facility] [place] Work Phone: Comment on above: Reference Range: 41. 0 - 52.0 Hemoglobin (Bld) [Mass/Vol] 13.6 g/dL See Below [facility] [address] [place] Work Phone: Comment on above: Reference Range: 13. 5 - 17.5 Lymphocytes/100 WBC (Bld) 26.5 % See Below [facility] [address] [place] Work Phone: Comment on above: Reference Range: 13. 0 - 44.0 MCHC (RBC) [Mass/Vol] 32.6 g/dL See Below [facility] [address] [place] Work Phone: Comment on above: Reference Range: 32. 0 - 36.0 MCV (RBC) [Entitic vol] 88 fL 80 - 100 [facility] [address] [place] Work Phone: Monocytes/100 WBC (Bld) 10.5 % 2.0 - 10.0 [facility] [address] [place] Work Phone: Neutrophils/100 WBC (Bld) 58.5 % See Below [facility] [address] [place] Work Phone: Comment on above: Reference Range: 40. 0 - 80.0 Platelets (Bld) [#/Vol] 134 10*3/uL below low threshold 150 - 450 [facility] [address] [place] Work Phone: RBC (Bld) [#/Vol] 4.75 {x10E12/L} See Below [facility] [place] Work Phone: Comment on above: Reference Range: 4.5 0 - 5.90 WBC (Bld) [#/Vol] 3.6 10*3/uL below low threshold 4.4 - 11.3 [facility] [address] [place] Work Phone: Complete Blood Count + Differential 0.02 {x10E9/L} See Below [facility] [address] [place] Work Phone: Comment on above: Reference Range: 0.0 0 - 0.10 Complete Blood Count + Differential 0.12 {x10E9/L} See Below [facility] [address] [place] Work Phone: Comment on above: Reference Range: 0.0 0 - 0.70 Complete Blood Count + Differential 0.38 {x10E9/L} See Below [facility] [place] Work Phone: Comment on above: Reference Range: 0.1 0 - 1.00 Complete Blood Count + Differential 0.96 {x10E9/L} below low threshold See Below -[facility] [address] [place] Work Phone: Comment on above: Reference Range: 1.2 0 - 4.80 Complete Blood Count + Differential 2.12 {x10E9/L} See Below [facility] [address] [place] Work Phone: Comment on above: Reference Range: 1.2 0 - 7.70 Complete Blood Count + Differential 3.3 % 0.0 - 6.0 -[place] [address] [place] Work Phone: Complete Blood Count + Differential 0.6 % 0.0 - 0.9 -[address] Work Phone: Comment on above: Immature Granulocyte Count (IG) includes promyelocytes, myelocytes and metamyelocytes but does not include bands. Percent differential counts (%) should be interpreted in the context of the absolute cell counts (cells/L). Complete Blood Count + Differential 0.0 {/100_WBC} 0.0-0.[address] Work Phone: Laboratory - Chemistry and C hemistry - challengeon 09-05-2021 Albumin BCP dye [Mass/Vol] 4.2 g/dL 3.4 - 5.[address] Work Phone: ALP [Catalytic activity/Vol] 59 U/L 33 - 120 [facility] [address] [place] Work Phone: ALT With P-5'-P [Catalytic activity/Vol] 23 U/L 10 - 52 [facility] [address] [place] Work Phone: Comment on above: Patients treated wit h Sulfasalazine may generate falsely decreased results for ALT. Anion gap [Moles/Vol] 12 mmol/L 10 - 20 [facility] [place] [address] [place] Work Phone: AST With P-5'-P [Catalytic activity/Vol] 18 U/L 9 - 39 [facility] [address] [place] Work Phone: Bilirubin [Mass/Vol] 0.4 mg/dL 0.0 - 1.2 [facility] [place] Work Phone: Calcium [Mass/Vol] 9.2 mg/dL 8.6 - 10.6 [facility] [place] Work Phone: Chloride [Moles/Vol] 102 mmol/L 98 - 107 [facility] [place] [address] [place] Work Phone: CO2 [Moles/Vol] 28 mmol/L 21 - 32 [facility] [address] [place] Work Phone: Creatinine [Mass/Vol] 1.05 mg/dL See Below [facility] [address] [place] Work Phone: Comment on above: Reference Range: 0.5 0 - 1.30 Glucose [Mass/Vol] 107 mg/dL above high threshold 74 - 99 [facility] [place] Work Phone: Potassium [Moles/Vol] 4.5 mmol/L 3.5 - 5.3 [facility] [place] Work Phone: Protein [Mass/Vol] 6.9 g/dL 6.4 - 8.2 [facility] [address] [place] Work Phone: Sodium [Moles/Vol] 137 mmol/L 136 - 145 [facility] [address] [place] Work Phone: Urea nitrogen [Mass/Vol] 17 mg/dL 6 - 23 [facility] [address] [place] Work Phone: No Panel Informationon 09-05 >60 >60 [facility] [address] [place] Work Phone: Comment on above: CALCULATIONS OF NIKOLE MATED GFR ARE PERFORMED USING THE MDRD STUDY EQUATION FOR THE IDMS-TRACEABLE CREATININE METHODS. CLIN CHEM 2007;53:766-72 [email or web address] e?[email or web address]&Da te=05-09-2021&Time=07%3a 43%3a30%3a00&TestType=EC G&Site=1&OutputType=PDF& Ext=PDF [facility] [place] Work Phone: [phone] Please see ED Provid er Note for formal interpretation [facility] [place] Work Phone: [phone] Normal [facility] [place] Work Phone: [phone] 1 [facility] [place] Work Phone: [phone] 1 [facility] [place] Work Phone: [phone] 1 [facility] [place] Work Phone: [phone] 1 [facility] [place] Work Phone: [phone] 1 [facility] [place] Work Phone: [phone] 11 1 [facility] [place] Work Phone: [phone] 1 [facility] [place] Work Phone: [phone] 1 [facility] [place] Work Phone: [phone] 38 1 [facility] [address] [place] Work Phone: [phone] 1 [facility] [place] Work Phone: [phone] 1 [facility] [address] [place] Work Phone: [phone] 96 1 [facility] [place] Work Phone: [phone] 162 1 [facility] [facility] [place] Work Phone: [phone] [facility] -[facility] [address] [place] Work Phone: Provider Note - ED v3on 08-23 Provider Note - ED v3 Provider Note: Chart Review: ED NOTES ED NOTES: HPI: -Patient is a 51-year-old male with PMH of thoracic aneurysm, renal artery stenosis, resents with chest pain. He \states that he has been having twinges of chest pain since last night. He states that he feels like PVCs. Chest pain as still ongoing at this time. Reports from this occurs at least 10/10 in severity. Chest pain is not associated with exertion. Is not take any medicine for the pain. He went to the fire station across the street, there EKG was interpreted by the machine to be STEMI. He was then brought in the emergency department for evaluation. He denies any recent fevers, chills, nausea, vomiting, shortness of breath, cough, congestion, rhinorrhea, abdominal pain, constipation, diarrhea, or dysuria. He also reports that this morning his blood pressure was high so he took 2 extra metoprolol and an extra Klonopin. ROS: A complete review of systems was performed and is otherwise negative except as noted in HPI PMH/PSH: Per HPI, EMR FH: Noncontributory SH: Drinks one beer daily, denies tobacco, illicts Allergies: Per EMR Medications: Per EMR, listed below PE: Vital signs reviewed in nursing triage note, EMR flow sheets, and at patient's bedside. GEN: well appearing, no acute distress HEAD: atraumatic EYES: PEERL, EOMI, no scleral icterus ENT: mmm, no rhinorrhea, uvula midline NECK: supple, no C-spine tenderness CVS/CHEST: reg rate, nl rhythm PULM: CTA b/l no wheezes, crackles, or rhonchi GI: NT/ND, no masses or organomegaly BACK: no CVA tenderness, no vertebral point tenderness EXT: no LE edema, 2+ periph pulses in bilat radial and DP NEURO: CN 2-12 grossly intact SKIN: warm, dry, no rashes or ulcerations PSYCH: AAOx3 answers questions appropriately ED Course/Treatment/MDM: DDX: Includes but not limited to ACS, MSK pain, Results: *See section(s) entitled ``Lab Results, ``Diagnostic Imaging Results Review for entirety. Notable results listed below - EKG: EKG performed at 743 shows normal sinus rhythm, normal intervals, normal axis, no ST elevations, ventricular rate 64 bpm - Labs/Images: Mild leukopenia Treatment/Management/The rapy: -Clonidine 0.1 MDM -Patient is a 51-year-old male with PMH of thoracic aneurysm and renal artery stenosis who presents with chest pain. He is well-appearing, afebrile and hemodynamically stable. EKG performed here shows no ischemic changes. Lab work including troponin was negative, and delta troponin was also negative. As such I have very low suspicion for ACS at this time. He has a heart score of 2 to follow-up as an outpatient for his chest pain. He does state he was previously seen a electrical software engineer but was fired from the service as the electrical software engineer did not like my attitude . Patient had some borderline soft blood pressures likely secondary to extra dosing of his blood pressure medication due to previous hypertension. Patient was given IV fluids and observed, his blood pressure remained more appropriately stable. He remained otherwise asymptomatic throughout this time. Patient was advised on follow-up with his primary care provider and electrical software engineer. He was discharged in stable clinical status. Clinical Impression: *See section entitled ``Diagnoses/Visit Problems Dispo - TAB Guerra, SANDRO PGY3 Disclaimer: This note was dictated by speech recognition. Minor errors in furnace filler may be present. Please DocHalo for questions. HISTORY OF PRESENTING ILLNESS HOSEA is a 51 year old Male and was seen by me at 05-Sep-2021 08:20. Triage Information: Most recent Vital Sign Value Date Temp (F): 98.2 09-05-2021 07:48 Temp (C): 36.8 09-05-2021 07:48 Heart Rate (beats/min): 55 09-05-2021 07:48 Respirations (breaths/min): 15 09-05-2021 07:48 SpO2 (%): 96 09-05-2021 07:48 BP Systolic (mm Hg): 104 09-05-2021 07:48 BP Diastolic (mm Hg): 75 09-05-2021 07:48 PAST MEDICAL HISTORY ALLERGIES/INTOLERANCES: Allergy Allergen: Erythromycin Base Type: Drug Reaction: Unknown Allergen: caffine Type: Food Reaction: Other Allergen: Cipro Type: Drug Reaction: Unknown Intolerance Allergen: polyethylene glycol 3350 Type: Drug Reaction: GI Upset HEALTH HISTORY: Family History Name:No family history of cancer Code:Z78.9 Name:No family history of coronary artery disease Code:Z78.9 Medical History Name:Chest pain Code:R07.9 Name:Renal artery stenosis Code:I70.1 Name:Pulmonary embolism Code:I26.99 Name:History of COVID-19 Code:Z86.16 Name:Ascending aortic aneurysm Code:I71.2 Name:Bipolar disorder Code:F31.9 Name:Palpitations Code:R00.2 Social History Name:Homeless Code:Z59.0 Name:Does not use illicit drugs Code:Z78.9 Name:Consumes alcohol occasionally Code:Z78.9 Name:Former smoker Code:Z87.891 OUTPATIENT MEDICATIONS: Home Medicatio (more content not included)... Normal [facility] Radiologyon 09-05-2021 XR Chest Single view Normal [facility]-P sychiatry -[address] Work Phone: TH CHEST 1 VIEWon 09-05-2021 TH CHEST 1 VIEW Patient Name: HOSEA ALVAREZ STUDY: CHEST 1 VIEW; 09/05/2021 10:15 am INDICATION: CP. COMPARISON: CT dated 08/12/2021 and radiograph dated 08/20/2021 ACCESSION NUMBER(S): [id number] ORDERING CLINICIAN: TARIQ GUERRA FINDINGS: The cardiac silhouette size is slightly enlarged, stable. There is no focal consolidation, edema or pneumothorax. No sizeable pleural effusion. No acute osseous abnormality. IMPRESSION: No focal infiltrate, pleural effusion, edema or pneumothorax. Electronically signed by: JACKSON SHOEMAKER MD Normal [facility] TROPONIN Ion 09-05-2021 Troponin I.cardiac [Mass/Vol] ng/mL Normal 0.00 - 0.03 [facility] Comment on above: Result Comment: LESS THAN 0.04 NG/ML: NEGATIVE REPEAT TESTING IN THREE TO SIX HOURS IF CLINICALLY INDICATED. 0.04 - 0.5 NG/ML: CONSISTENT WITH POSSIBLE CARDIAC DAMAGE AND POSSIBLE INCREASED CLINICAL RISK. SERIAL MEASUREMENTS MAY HELP ASSESS EXTENT OF MYOCARDIAL DAMAGE. >0.5 NG/ML: CONSISTENT WITH CARDIAC DAMAGE, INCREASED CLINICAL RISK AND MYOCARDIAL INFARCTION. SERIAL MEASUREMENTS MAY HELP ASSESS EXTENT OF MYOCARDIAL DAMAGE. . Note: Troponin I testing is performed using different testing methodology at [facility] than at other [facility]. Direct result comparisons should only be made within the same method. . Biotin interference may cause falsely decreased results. Patients taking a Biotin dose of up to 5 mg/day should refrain from taking Biotin for 24 hours before sample collection. Providers may contact their laboratory for further information. Performed By: #### T ROP2 #### [facility] [id number] [place] [address] Troponin I.cardiac [Mass/Vol] ng/mL Normal 0.00 - 0.03 [facility] Comment on above: Result Comment: LESS THAN 0.04 NG/ML: NEGATIVE REPEAT TESTING IN THREE TO SIX HOURS IF CLINICALLY INDICATED. 0.04 - 0.5 NG/ML: CONSISTENT WITH POSSIBLE CARDIAC DAMAGE AND POSSIBLE INCREASED CLINICAL RISK. SERIAL MEASUREMENTS MAY HELP ASSESS EXTENT OF MYOCARDIAL DAMAGE. >0.5 NG/ML: CONSISTENT WITH CARDIAC DAMAGE, INCREASED CLINICAL RISK AND MYOCARDIAL INFARCTION. SERIAL MEASUREMENTS MAY HELP ASSESS EXTENT OF MYOCARDIAL DAMAGE. . Note: Troponin I testing is performed using different testing methodology at [facility] than at [facility]. Direct result comparisons should only be made within the same method. . Biotin interference may cause falsely decreased results. Patients taking a Biotin dose of up to 5 mg/day should refrain from taking Biotin for 24 hours before sample collection. Providers may contact their laboratory for further information. Performed By: #### C BCDF #### [facility] [id number] [place] [address] Triage - EDon 09-05-2021 Triage - ED Chart Review: ARRIVAL INFORMATION Mode of Arrival: [facility]IEF COMPLAINT HOSEA ALVAREZ is a Male patient with a chief complaint of chest pain. Other Complaints: Sharp intermittent L sided chest pain. Pt endorses everyday drinking. Triage Date/Time: 05-Sep-2021 07:48 WILMAN: 3 Vital Signs: Temperature: 98.2F ( 36.8C) Blood Pressure: 104/75 Mean: Heart Rate: 55 Respiratory Rate: 15 Pulse Oximetry: 96% on room air, no respiratory support. Height: 5 feet 7.00 inches. 170.1 CM Weight: 194.0 pounds. Calculated 88.0 kg. (stated) Calculated BMI (kg/m2): 30.414 Calculated BSA (m2) 2.04 [place] Coma Scale: Best Eye Response: (E4) spontaneous Best Motor Response: (M6) obeys commands Best Verbal Response: (V5) oriented Lynda Score: 15 Allergies: yes Patient has homicidal thoughts: no Risk Screens Suicide Risk Screen In the Past Month: Have you wished you were or wished you could go to sleep and not wake up no In the Past Month: Have you had any actual thoughts of killing yourself no In Your Lifetime: Have you ever done anything, started to do anything, or prepared to do anything to end your life no [place] Fall Scale Screening Has the patient fallen before (or is the patient in the ED as a result of a fall) has not had a fall Does the patient have an impaired gait does not have impaired gait Is the patient cognitively impaired not cognitively impaired Interventions: Jesse Fall Interventions: LOW INTERVENTIONS: *patient oriented to surroundings and call system, * patient/family falls education completed and documented, *patients fall status communicated during bedside handoff, *whiteboard updated, *mode of toileting discussed with patient, *bed in low position with brakes locked, *call light in reach, * non-skid footwear TRAVEL HISTORY Travel History Coronavirus Screening: no exposure or symptoms Travel Exposure History: NO travel to International locations in the past 30 days PAIN Pain Scale Used: SHANNON Past Medical History: Past Medical History Reviewedyes Electronic Signatures: Nicole Cervantes (BR[place]NN) (Signed 05-Sep-2021 07:50) Authored: Quick Triage, Risk Screens, Pain, Travel History, Chart Review, Scores, Past Medical History Last Updated: 05-Sep-2021 07:50 by Nicole Cervantes (BROOK[place]NN) Normal [facility] Troponin I, Serumon 09-05-20 21 Troponin I.cardiac [Mass/Vol] ng/mL See Below [facility]-Psychiatry -[facility] [address] [place] Work Phone: Comment on above: Reference Range: 0.0 0 - 0.03LESS THAN 0.04 NG/ML: NEGATIVEREPEAT TESTING IN THREE TO SIX HOURSIF CLINICALLY INDICATED.0.04 - 0.5 NG/ML: CONSISTENT WITH POSSIBLECARDIAC DAMAGE AND POSSIBLE INCREASEDCLINICAL RISK.SERIAL MEASUREMENTS MAY HELP ASSESS EXTENT OFMYOCARDIAL DAMAGE.>0.5 NG/ML: CONSISTENT WITH CARDIAC DAMAGE,INCREASED CLINICAL RISK AND MYOCARDIALINFARCTION. SERIAL MEASUREMENTS MAY HELPASSESS EXTENT OF MYOCARDIAL DAMAGE..Note: Troponin I testing is performed using different testing methodology at [facility] than at other [facility]. Direct result comparisons should only be made within the same method.. Biotin interference may cause falsely decreased results. Patients taking a Biotin dose of up to 5 mg/day should refrain from taking Biotin for 24 hours before sample collection. Providers may contact their laboratory for further information. Troponin I.cardiac [Mass/Vol] ng/mL See Below [facility] Work Phone: Comment on above: Reference Range: 0.0 0 - 0.03LESS THAN 0.04 NG/ML: NEGATIVEREPEAT TESTING IN THREE TO SIX HOURSIF CLINICALLY INDICATED.0.04 - 0.5 NG/ML: CONSISTENT WITH POSSIBLECARDIAC DAMAGE AND POSSIBLE INCREASEDCLINICAL RISK.SERIAL MEASUREMENTS MAY HELP ASSESS EXTENT OFMYOCARDIAL DAMAGE.>0.5 NG/ML: CONSISTENT WITH CARDIAC DAMAGE,INCREASED CLINICAL RISK AND MYOCARDIALINFARCTION. SERIAL MEASUREMENTS MAY HELPASSESS EXTENT OF MYOCARDIAL DAMAGE..Note: Troponin I testing is performed using different testing methodology at [facility] than at other [facility]. Direct result comparisons should only be made within the same method.. Biotin interference may cause falsely decreased results. Patients taking a Biotin dose of up to 5 mg/day should refrain from taking Biotin for 24 hours before sample collection. Providers may contact their laboratory for further information. Clinical Case Managementon 1 11-05-2020 Clinical Case Management Diagnosis/Problems Assessed Bipolar 2 disorder (296.89) (F31.81) Chest pain (786.50) (R07.9) ETOH abuse (305.00) (F10.10) Palpitations (785.1) (R00.2) Renal artery stenosis (440.1) (I70.1) Acute back pain (724.5) (M54.9) Ascending aortic aneurysm (441.2) (I71.2) Provider Impressions Nutrition Services Assistant spoke with patient on the phone to provide case management services related to his healthcare. Patient presents as in the contemplation stage of change and is making progress on this objective. Nutrition Services Assistant provided a brief check in with patient related to his healthcare and current visit to the ED. Patient notes that he was not feeling well so he brought himself to the ED. During the phone call, Patient made inappropriate comments, referring to Nutrition Services Assistant as 'sweetie', and asking if Nutrition Services Assistant needs a girlfriend. Patient informed that this is not the kind of conversation Nutrition Services Assistant would like to have with Patient, and asked how patient is feeling now. Patient notes that he is cold, and is going back inside the hospital. He is concerned about getting exposed to COVID, but also notes that he needs support with getting care. Patient agreed to speak with Nutrition Services Assistant further later this week. Nutrition Services Assistant to follow up later this week. Chief Complaint A telephone visit (audio only) between the patient (at the originating site) and the provider (at the distant site) was utilized to provide this telehealth service. Verbal consent was requested and obtained from HOSEA ALVAREZ on this date, 09/04/2021 04:00 PM , for a telehealth visit. Nutrition Services Assistant spoke with patient on the phone to provide CPST service of symptom monitoring related to his mental and physical health. History of Present Illness Patient presents as in good spirits despite having just left the ED. Active Problems Problems Acute back pain (724.5) (M54.9) Anemia (285.9) (D64.9) Ascending aortic aneurysm (441.2) (I71.2) Bipolar 2 disorder (296.89) (F31.81) Chest pain (786.50) (R07.9) Chronic bilateral low back pain without sciatica (724.2,338.29) (M54.50,G89.29) Constipation (564.00) (K59.00) Costochondritis (733.6) (M94.0) COVID-19 (079.89) (U07.1) Esophageal spasm (530.5) (K22.4) Essential hypertension (401.9) (I10) ETOH abuse (305.00) (F10.10) GERD (gastroesophageal reflux disease) (530.81) (K21.9) Palpitations (785.1) (R00.2) Pancytopenia (284.19) (D61.818) Renal artery stenosis (440.1) (I70.1) Screening for colorectal cancer (V76.51,V76.41) (Z12.11,Z12.12) Segmental and somatic dysfunction of lumbar region (739.3) (M99.03) Social History Problems Current smoker (305.1) (F17.200) ETOH abuse (305.00) (F10.10) Former smoker (V15.82) (Z87.891) Regular alcohol consumption (V69.8) (Z78.9) Allergies Medication Caffeine Chest Pain;; Recorded By: Neil Billings; 06/28/2021 9:27:50 AM Erythromycin TABS Adverse Reaction; Gatrointestinal upset; Updated By: Meagan Baugh; 02/22/2021 3:30:50 PM polyethylene glycol 3350 Gatrointestinal upset; Recorded By: Antonia Cuenca; 02/16/2021 10:12:41 AM Current Meds Medication NameInstruction cloNIDine HCl - 0.2 MG Oral TabletTAKE 1 TABLET 3 TIMES DAILY. Dicyclomine HCl - 10 MG Oral Capsule Lidocaine Viscous HCl - 2 % Mouth/Throat Solutiontake one teaspoon and swish and spit four times a day as needed Losartan Potassium 25 MG Oral TabletTAKE 2 TABLETs DAILY DIRECTED. Losartan Potassium 50 MG Oral TabletTAKE 1 TABLET BY MOUTH EVERY DAY Metoprolol Succinate ER 25 MG Oral Tablet Extended Release 24 HourTAKE 1 TABLET DAILY. Nitroglycerin 0.4 MG Sublingual Tablet SublingualPLACE 1 TABLET UNDER THE TONGUE EVERY 5 MINUTES UP TO 3 DOSES NEEDED FOR CHEST PAIN (call 911 with 3rd dose). Senna Laxative 8.6 MG Oral TabletTake one tablet daily at bedtime Time Case Management Time: Prep time on date of the encounter: 0 minutes. Time spent with the client/family/caregiver on date of the encounter: 15 minutes. Other time spent on date of the encounter: 0 minutes. Total time on date of the encounter: 15 minutes Future Appointments Date/TimeProviderSpecial tySite 10/09/2021 01:45 Lily Rosales [facility] Signatures Electronically signed by : STONE Trent; Sep 07 2021 9:14PM EST (Author) Normal [facility] Clinical Case Managementon 1 11-01-2020 Clinical Case Management Diagnosis/Problems Assessed Ascending aortic aneurysm (441.2) (I71.2) Bipolar 2 disorder (296.89) (F31.81) Chest pain (786.50) (R07.9) ETOH abuse (305.00) (F10.10) Palpitations (785.1) (R00.2) Renal artery stenosis (440.1) (I70.1) Provider Impressions Provider impressions: MSE General appearance AND grooming: Disheveled Motor activity: Appropriate Behavior: Cooperative Adaptive Equipment: none Speech: Pressured Mood: Euthymic, Irritable Affect: Mood Congruent Thought process: Appropriate Loose Associations Thought content: Appropriate Grandiose Cognition: No impairment, Orientation: Alert AND Oriented x 3 Insight: Projection of blame Eye contact: Intense Judgment: Lacks social judgment Interview behavior: Appropriate Hallucinations: None Delusions: Absent THis is a 51 year old white male patient diagnosed with aortic aneurysm, thoracic aneurysm, renal stenosis, bipolar 2 disorder, chronic chest pain, palpitations, and ETOH use. Patient has inconsistent housing currently, but stays in [place], [place], [place], and [place]. He presents frequently to the ED due to concerns regarding his cardiovascular problems, but is often turned away. He has been removed from several medical providers practices.due to what is perceived as aggressive behavior. Patient would like to ensure that his medical providers are working to treat all his conditions in a way that will result in him doing well. He would like support in advocating regarding his care, and coordination with the various providers he sees. Patient is also interested in starting an organization to support mentally ill homeless people. Despite his various barriers to attaining his goals, patient presents with several strengths. He is a great advocate for himself and has an understanding of the ins and outs of social sciences instructor and medical care organizations. He has a great sense of humor, and is able to get around all of the [facility] on his bike. GIven all of this, Nutrition Services Assistant will provide case management services such as linkage and referral, and coordination of care related to his medical and mental health care. Nutrition Services Assistant will also provide supportive counseling such as empathic listening, motivational interviewing, and cognitive-behavioral techniques to support the patient in discussing his thoughts and feelings regarding his care. These services will be provided on an at least monthly basis. PADDY Trent Chief Complaint Nutrition Services Assistant met with patient in the community for initial assessment. This is a 51 year old White male patient currently inconsistently housed, staying in [facility] and [place] with his lady friend. 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 Patient was referred by his primary care doctor due to frequent ED visits. Patient is interested in case management services to support him in remembering and attending medical appointments. History of Present Illness Patient is currently dealing with frequent chest pains, waking up with rapid heartbeat, and anxiety. Patient moved to [place] due to better access to doctors he needs. He is concerned about his Aortic Aneurysm and Thoracic Aneurysm. Patient has autism and has a communication style that sometimes comes off as more aggressive than he realizes. This, according to him, has led to his being dismissed from several medical practices, as well as being thrown out of several Emergency Departments. Active Problems Problems Acute back pain (724.5) (M54.9) Anemia (285.9) (D64.9) Ascending aortic aneurysm (441.2) (I71.2) Bipolar 2 disorder (296.89) (F31.81) Chest pain (786.50) (R07.9) Chronic bilateral low back pain without sciatica (724.2,338.29) (M54.50,G89.29) Constipation (564.00) (K59.00) Costochondritis (733.6) (M94.0) COVID-19 (079.89) (U07.1) Esophageal spasm (530.5) (K22.4) Essential hypertension (401.9) (I10) ETOH abuse (305.00) (F10.10) GERD (gastroesophageal reflux disease) (530.81) (K21.9) Palpitations (785.1) (R00.2) Pancytopenia (284.19) (D61.818) Renal artery stenosis (440.1) (I70.1) Screening for colorectal cancer (V76.51,V76.41) (Z12.11,Z12.12) Segmental and somatic dysfunction of lumbar region (739.3) (M99.03) Social History Problems Current smoker (305.1) (F17.200) ETOH abuse (305.00) (F10.10) Former smoker (V15.82) (Z87.891) Regular alcohol consumption (V69.8) (Z78.9) Social History: Patient is diagnosed with ascending aortic aneurysm, bipolar 2 disorder, chronic chest pain, ETOH abuse, palpitations, and renal artery stenosis. He is followed for primary care by Dr. Viral Amado, and has so far been removed from both his thoracic surgeon's practice, and his electrical software engineer's practice. Patient has been barred entry to several ED's, as well as some at [facility]. Patient does not endorse inpatient psychiatric treatment, and is not currently followed for outpatient psych (more content not included)... Normal [facility] Clinical Case Managementon 1 10-31-2020 Clinical Case Management Diagnosis/Problems Assessed Ascending aortic aneurysm (441.2) (I71.2) Renal artery stenosis (440.1) (I70.1) Acute back pain (724.5) (M54.9) Bipolar 2 disorder (296.89) (F31.81) ETOH abuse (305.00) (F10.10) Palpitations (785.1) (R00.2) Provider Impressions Nutrition Services Assistant spoke to patient on the phone to provide case management services related to his healthcare. Patient presents as in the precontemplation stage of change and is making minimal progress on his objectives. Nutrition Services Assistant provided empathic listening and care coordination services to support the patient in discussing his thoughts and feelings and his symptoms with Nutrition Services Assistant. Patient notes he is concerned about his vascular surgery appointment tomorrow as he believes he needs to have surgery soon. Patient also expressed concern regarding the lack of services available to people in his situation, noting that he wishes to start a homeless outreach organization. Patient also discussed conversations with the compliance department at . Nutrition Services Assistant agreed to meet patient later this week in person to complete psychosocial assessment. Nutrition Services Assistant to follow up later this week. Chief Complaint Verbal consent was requested and obtained from HOSEA ALVAREZ on this date, 08/30/2021 01:00 PM , for a telehealth visit. Nutrition Services Assistant spoke to patient on the phone to provide CPST service of symptom monitoring related to his health and mental health. History of Present Illness Patient presents as alert and oriented x3, able to advocate for himself, and eager to express his concerns related to his health. Active Problems Problems Acute back pain (724.5) (M54.9) Anemia (285.9) (D64.9) Ascending aortic aneurysm (441.2) (I71.2) Bipolar 2 disorder (296.89) (F31.81) Chest pain (786.50) (R07.9) Chronic bilateral low back pain without sciatica (724.2,338.29) (M54.50,G89.29) Constipation (564.00) (K59.00) Costochondritis (733.6) (M94.0) COVID-19 (079.89) (U07.1) Esophageal spasm (530.5) (K22.4) Essential hypertension (401.9) (I10) ETOH abuse (305.00) (F10.10) GERD (gastroesophageal reflux disease) (530.81) (K21.9) Palpitations (785.1) (R00.2) Pancytopenia (284.19) (D61.818) Renal artery stenosis (440.1) (I70.1) Screening for colorectal cancer (V76.51,V76.41) (Z12.11,Z12.12) Segmental and somatic dysfunction of lumbar region (739.3) (M99.03) Social History Problems Current smoker (305.1) (F17.200) ETOH abuse (305.00) (F10.10) Former smoker (V15.82) (Z87.891) Regular alcohol consumption (V69.8) (Z78.9) Allergies Medication Caffeine Chest Pain;; Recorded By: Neil Billings; 06/28/2021 9:27:50 AM Erythromycin TABS Adverse Reaction; Gatrointestinal upset; Updated By: Meagan Baugh; 02/22/2021 3:30:50 PM polyethylene glycol 3350 Gatrointestinal upset; Recorded By: Antonia Cuenca; 02/16/2021 10:12:41 AM Current Meds Medication NameInstruction cloNIDine HCl - 0.2 MG Oral TabletTAKE 1 TABLET 3 TIMES DAILY. Dicyclomine HCl - 10 MG Oral Capsule Lidocaine Viscous HCl - 2 % Mouth/Throat Solutiontake one teaspoon and swish and spit four times a day as needed Losartan Potassium 25 MG Oral TabletTAKE 2 TABLETs DAILY DIRECTED. Losartan Potassium 50 MG Oral TabletTAKE 1 TABLET BY MOUTH EVERY DAY Metoprolol Succinate ER 25 MG Oral Tablet Extended Release 24 HourTAKE 1 TABLET DAILY. Nitroglycerin 0.4 MG Sublingual Tablet SublingualPLACE 1 TABLET UNDER THE TONGUE EVERY 5 MINUTES UP TO 3 DOSES NEEDED FOR CHEST PAIN (call 911 with 3rd dose). Senna Laxative 8.6 MG Oral TabletTake one tablet daily at bedtime Time Case Management Time: Prep time on date of the encounter: 0 minutes. Time spent with the client/family/caregiver on date of the encounter: 15 minutes. Other time spent on date of the encounter: 0 minutes. Total time on date of the encounter: 15 minutes Future Appointments Date/TimeProviderSpecial tySite 10/09/2021 01:45 Lily Rosales, [facility] CITY[facility]iology[facility]ucl[facility] Signatures Electronically signed by : STONE Trent; Sep 04 2021 4:56PM EST (Author) Normal [facility] Office Visit (Vascular Surge ry)on 08-30-2021 Follow-up visit Diagnoses/Problems Assessed Ascending aortic aneurysm (441.2) (I71.2) Renal artery stenosis (440.1) (I70.1) Patient Discussion/Summary High grade left renal artery stenosis Ascending aortic aneurysm He was advised he contact his previous vascular surgeon to address these issues as we will not continue to offer surgery. Provider Impressions High grade left renal artery stenosis Ascending aortic aneurysm He was advised he contact his previous vascular surgeon to address these issues as we will not continue to offer surgery. Latha Messina, LANDSCAPE ENGINEER-PLASTERER STUCCO This is a shared visit. Both the Nurse Practitioner and I have had a face to face encounter with the patient today. I have reviewed the GLASSBLOWER's encounter note, approve the documentation and provide the following information from my personal encounter with the patient. I personally took the history and examined the patient. I have formulated the plan and discussed it with the patient who understood and agreed. Tay Lott MD sane nurse [facility] Division of Vascular Surgery Co-Director, [facility] [place] [facility] Chief Complaint The patient presents to the office today for a routine follow up exam. A telephone visit (audio only) between the patient (at the originating site) and the provider (at the distant site) was utilized to provide this telehealth service. Verbal consent was requested and obtained from HOSEA ALVAREZ on this date, 08/30/2021 01:00 PM , for a telehealth visit. History of Present Illness 51 year old male being seen for telephone visit. He has high grade left renal artery stenosis and was offered intervention twice this year. He canceled both times. He was seen by Dr. Delatorre last week and was escorted out of the office for inappropriate behavior. He also has an ascending aortic aneurysm that has grown to 5 cm compared to 4.6 cm about 6 months ago. He states his blood pressure is better controlled since starting Losartan. Review of Systems All systems were reviewed and noted to be negative, other than described above. Active Problems Problems Acute back pain (724.5) (M54.9) Anemia (285.9) (D64.9) Ascending aortic aneurysm (441.2) (I71.2) Bipolar 2 disorder (296.89) (F31.81) Chest pain (786.50) (R07.9) Chronic bilateral low back pain without sciatica (724.2,338.29) (M54.50,G89.29) Constipation (564.00) (K59.00) Costochondritis (733.6) (M94.0) COVID-19 (079.89) (U07.1) Esophageal spasm (530.5) (K22.4) Essential hypertension (401.9) (I10) ETOH abuse (305.00) (F10.10) GERD (gastroesophageal reflux disease) (530.81) (K21.9) Palpitations (785.1) (R00.2) Pancytopenia (284.19) (D61.818) Renal artery stenosis (440.1) (I70.1) Screening for colorectal cancer (V76.51,V76.41) (Z12.11,Z12.12) Segmental and somatic dysfunction of lumbar region (739.3) (M99.03) Social History Problems Current smoker (305.1) (F17.200) ETOH abuse (305.00) (F10.10) Former smoker (V15.82) (Z87.891) Regular alcohol consumption (V69.8) (Z78.9) Allergies Medication Caffeine Chest Pain;; Recorded By: Neil Billings; 06/28/2021 9:27:50 AM Erythromycin TABS Adverse Reaction; Gatrointestinal upset; Updated By: Meagan Baugh; 02/22/2021 3:30:50 PM polyethylene glycol 3350 Gatrointestinal upset; Recorded By: Antonia Cuenca; 02/16/2021 10:12:41 AM Current Meds Medication NameInstruction cloNIDine HCl - 0.2 MG Oral TabletTAKE 1 TABLET 3 TIMES DAILY. Dicyclomine HCl - 10 MG Oral Capsule Lidocaine Viscous HCl - 2 % Mouth/Throat Solutiontake one teaspoon and swish and spit four times a day as needed Losartan Potassium 25 MG Oral TabletTake 1 tablet daily Losartan Potassium 25 MG Oral TabletTAKE 2 TABLETs DAILY DIRECTED. Losartan Potassium 50 MG Oral TabletTAKE 1 TABLET BY MOUTH EVERY DAY Metoprolol Succinate ER 25 MG Oral Tablet Extended Release 24 HourTAKE 1 TABLET DAILY. Nitroglycerin 0.4 MG Sublingual Tablet SublingualPLACE 1 TABLET UNDER THE TONGUE EVERY 5 MINUTES UP TO 3 DOSES NEEDED FOR CHEST PAIN (call 911 with 3rd dose). Senna Laxative 8.6 MG Oral TabletTake one tablet daily at bedtime Vitals unable to obtain - virtual visit Physical Exam unable to obtain - virtual visit Results/Data CT [id number] Ordering Provider: TRISTON OROZCO [id number] Angio Chest(Report) FINAL REPORT Interpreted by: СВЕТЛАНА MCGOWAN DOUGLAS, DO 08/12/21 22:06 Patient Name: HOSEA ALVAREZ STUDY: CT ANGIO CHEST; 08/12/2021 9:29 pm INDICATION: CP, radiating to back, hx of thoracic aneurysm, Lie Flat: Yes . COMPARISON: 05/08/2021 ACCESSION NUMBER(S): [id number] ORDERING CLINICIAN: TRISTON OROZCO TECHNIQUE: Helical data acquisition of the chest was obtained before and after the administration of intravenous contrast, 90 mL Omnipaque 3 (more content not included)... [facility] Clinical Case Managementon 1 10-30-2020 Clinical Case Management Diagnosis/Problems Assessed Ascending aortic aneurysm (441.2) (I71.2) Renal artery stenosis (440.1) (I70.1) Acute back pain (724.5) (M54.9) Bipolar 2 disorder (296.89) (F31.81) ETOH abuse (305.00) (F10.10) Palpitations (785.1) (R00.2) Provider Impressions Nutrition Services Assistant spoke to patient on the phone to provide case management services related to his healthcare. Patient presents as in the precontemplation stage of change and is making minimal progress on his objectives. Nutrition Services Assistant provided empathic listening and care coordination services to support the patient in discussing his thoughts and feelings and his symptoms with Nutrition Services Assistant. Patient notes he is concerned about his vascular surgery appointment tomorrow as he believes he needs to have surgery soon. Patient also expressed concern regarding the lack of services available to people in his situation, noting that he wishes to start a homeless outreach organization. Patient also discussed conversations with the compliance department at . Nutrition Services Assistant agreed to meet patient later this week in person to complete psychosocial assessment. Nutrition Services Assistant to follow up later this week. Chief Complaint Verbal consent was requested and obtained from HOSEA ALVAREZ on this date, 08/30/2021 01:00 PM , for a telehealth visit. Nutrition Services Assistant spoke to patient on the phone to provide CPST service of symptom monitoring related to his health and mental health. History of Present Illness Patient presents as alert and oriented x3, able to advocate for himself, and eager to express his concerns related to his health. Active Problems Problems Acute back pain (724.5) (M54.9) Anemia (285.9) (D64.9) Ascending aortic aneurysm (441.2) (I71.2) Bipolar 2 disorder (296.89) (F31.81) Chest pain (786.50) (R07.9) Chronic bilateral low back pain without sciatica (724.2,338.29) (M54.50,G89.29) Constipation (564.00) (K59.00) Costochondritis (733.6) (M94.0) COVID-19 (079.89) (U07.1) Esophageal spasm (530.5) (K22.4) Essential hypertension (401.9) (I10) ETOH abuse (305.00) (F10.10) GERD (gastroesophageal reflux disease) (530.81) (K21.9) Palpitations (785.1) (R00.2) Pancytopenia (284.19) (D61.818) Renal artery stenosis (440.1) (I70.1) Screening for colorectal cancer (V76.51,V76.41) (Z12.11,Z12.12) Segmental and somatic dysfunction of lumbar region (739.3) (M99.03) Social History Problems Current smoker (305.1) (F17.200) ETOH abuse (305.00) (F10.10) Former smoker (V15.82) (Z87.891) Regular alcohol consumption (V69.8) (Z78.9) Allergies Medication Caffeine Chest Pain;; Recorded By: Neil Billings; 06/28/2021 9:27:50 AM Erythromycin TABS Adverse Reaction; Gatrointestinal upset; Updated By: Meagan Baugh; 02/22/2021 3:30:50 PM polyethylene glycol 3350 Gatrointestinal upset; Recorded By: Antonia Cuenca; 02/16/2021 10:12:41 AM Current Meds Medication NameInstruction cloNIDine HCl - 0.2 MG Oral TabletTAKE 1 TABLET 3 TIMES DAILY. Dicyclomine HCl - 10 MG Oral Capsule Lidocaine Viscous HCl - 2 % Mouth/Throat Solutiontake one teaspoon and swish and spit four times a day as needed Losartan Potassium 25 MG Oral TabletTAKE 2 TABLETs DAILY DIRECTED. Losartan Potassium 50 MG Oral TabletTAKE 1 TABLET BY MOUTH EVERY DAY Metoprolol Succinate ER 25 MG Oral Tablet Extended Release 24 HourTAKE 1 TABLET DAILY. Nitroglycerin 0.4 MG Sublingual Tablet SublingualPLACE 1 TABLET UNDER THE TONGUE EVERY 5 MINUTES UP TO 3 DOSES NEEDED FOR CHEST PAIN (call 911 with 3rd dose). Senna Laxative 8.6 MG Oral TabletTake one tablet daily at bedtime Time Case Management Time: Prep time on date of the encounter: 0 minutes. Time spent with the client/family/caregiver on date of the encounter: 15 minutes. Other time spent on date of the encounter: 0 minutes. Total time on date of the encounter: 15 minutes Future Appointments Date/TimeProviderSpecial tySite 10/09/2021 01:45 Damianmaría Lily, MDCardiologyEuclid Laci [address] Signatures Electronically signed by : STONE Trent; Sep 04 2021 5:00PM EST (Author) [facility] Clinical Case Management No report was sent [facility] Heart Rateon 08-28-2021 Heart Rate Regular [facility] Work Phone: Office Visit (Cardiology)on 08-28-2021 Follow-up visit Diagnoses/Problems Assessed Essential hypertension (401.9) (I10) Palpitations (785.1) (R00.2) Renal artery stenosis (440.1) (I70.1) Ascending aortic aneurysm (441.2) (I71.2) Anemia (285.9) (D64.9) *Orders Chest pain Renew: Nitroglycerin 0.4 MG Sublingual Tablet Sublingual; PLACE 1 TABLET UNDER THE TONGUE EVERY 5 MINUTES UP TO 3 DOSES NEEDED FOR CHEST PAIN (call 911 with 3rd dose) Essential hypertension Renew: cloNIDine HCl - 0.2 MG Oral Tablet; TAKE 1 TABLET 3 TIMES DAILY Renew: Losartan Potassium 25 MG Oral Tablet; TAKE 2 TABLETs DAILY DIRECTED Essential hypertension (401.9) (I10) Patient Instructions OBTAIN 2 WEEK MONITOR RETURN IN 6 WEEKS CONTINUE ALL MEDICATION PRESCRIBED CALL FOR ANY CONCERNS [phone] Chief Complaint HOSEA ALVAREZ is being seen for chest pain and hypertension. History of Present Illness Mr. Alvarez is seen as a new patient to our practice. He has seen previous cardiologists with dismissal from offices. He is seen today in collaboration with Dr. Carvajal. Mr. Alvarez has a medical history significant for thoracic aortic aneurysm (CT angio 08/12/2021 5 cm max caliber slightly increased from prior studies of 4.4-4.6 depending on modality), hypertension with left ELIANA (CT abdomen demonstrates 70-90% narrowing), PE in the setting of Covid infection treated 1 month with Eliquis due to reported GI bleed and palpitations. He presents endorsing cardiology and vascular surgery visits in [place], [place] and [place] over the past 1 year. He has had multiple ED visits and some hospitalizations with various and duplicate testing. He most recently reports going to the [facility] for a CT to evaluate his aorta. He notes compliance with medication although is taking Clonidine 'like candy and has run out of Losartan about 3 day ago. 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 He notes some atypical and nonexertional chest pain and occasional palpitations and is requesting several tests. He is active and rides his bicycle for exercise and as his mode of transportation. He denies any symptoms specific to activity. The patient denies any shortness of breath, PND, orthopnea, lightheadedness, syncope, lower extremity edema or bleeding problems. *Active Problems Problems Acute back pain (724.5) (M54.9) Anemia (285.9) (D64.9) Bipolar 2 disorder (296.89) (F31.81) Chest pain (786.50) (R07.9) Chronic bilateral low back pain without sciatica (724.2,338.29) (M54.50,G89.29) Constipation (564.00) (K59.00) Costochondritis (733.6) (M94.0) COVID-19 (079.89) (U07.1) Esophageal spasm (530.5) (K22.4) ETOH abuse (305.00) (F10.10) GERD (gastroesophageal reflux disease) (530.81) (K21.9) Palpitations (785.1) (R00.2) Pancytopenia (284.19) (D61.818) Screening for colorectal cancer (V76.51,V76.41) (Z12.11,Z12.12) Segmental and somatic dysfunction of lumbar region (739.3) (M99.03) Essential hypertension (401.9) (I10) Renal artery stenosis (440.1) (I70.1) Ascending aortic aneurysm (441.2) (I71.2) Current Meds Medication NameInstruction cloNIDine HCl - 0.2 MG Oral TabletTAKE 1 TABLET 3 TIMES DAILY. Dicyclomine HCl - 10 MG Oral Capsule Lidocaine Viscous HCl - 2 % Mouth/Throat Solutiontake one teaspoon and swish and spit four times a day as needed Losartan Potassium 50 MG Oral TabletTAKE 1 TABLET BY MOUTH EVERY DAY Metoprolol Succinate ER 25 MG Oral Tablet Extended Release 24 HourTAKE 1 TABLET DAILY. Nitroglycerin 0.4 MG Sublingual Tablet SublingualPLACE 1 TABLET UNDER THE TONGUE EVERY 5 MINUTES UP TO 3 DOSES NEEDED FOR CHEST PAIN (call 911 with 3rd dose). Senna Laxative 8.6 MG Oral TabletTake one tablet daily at bedtime Allergies Medication Caffeine Chest Pain;; Recorded By: Neil Billings; 06/28/2021 9:27:50 AM Erythromycin TABS Adverse Reaction; Gatrointestinal upset; Updated By: Meagan Baugh; 02/22/2021 3:30:50 PM polyethylene glycol 3350 Gatrointestinal upset; Recorded By: Antonia Cuenca; 02/16/2021 10:12:41 AM Social History Problems Current smoker (305.1) (F17.200) ETOH abuse (305.00) (F10.10) Former smoker (V15.82) (Z87.891) Regular alcohol consumption (V69.8) (Z78.9) Review of Systems The patient denies shortness of breath, lightheadedness, syncope, orthopnea, paroxysmal nocturnal dyspnea, lower extremity edema, or bleeding problems. All other systems have been reviewed and are negative for complaint. Vitals Vital Signs Recorded: [id number] 10:24AM Heart Rate80 Pulse QualityRegular [id number], Sitting Uuwnshmwp90, Sitting Physical Exam Constitutional: alert and in no acute distress. Neck: neck is supple, symmetric, trachea midline, no masses . Pulmonary: no increased work of breathing or signs of respiratory distress and lungs clear to auscultation. Cardiovascular: carotid pulses 2+ bilaterally with no bruit , JVP was normal, the heart rate was normal the rhythm was regular A grade 1 (more content not included)... [facility] CBC AND DIFFERENTIALon 08-24 % AUTOMATED IMMATURE GRAN Canceled Normal [facility] Comment on above: Order Comment: TEST CBC AND DIFFERENTIAL WAS CANCELLED, 08/24/2021 18:56 Result Comment: Kath ture Granulocyte Count (IG) includes promyelocytes, myelocytes and metamyelocytes but does not include bands. Percent differential counts (%) should be interpreted in the context of the absolute cell counts (cells/L). Performed By: #### C BCDF #### [facility] [address] [place] [address] % BASOPHIL Canceled Normal [facility] Comment on above: Order Comment: TEST CBC AND DIFFERENTIAL WAS CANCELLED, 08/24/2021 18:56 Performed By: #### C BCDF #### [facility] [address] [place] [address] % EOSINOPHIL Canceled Normal [facility] Comment on above: Order Comment: TEST CBC AND DIFFERENTIAL WAS CANCELLED, 08/24/2021 18:56 Performed By: #### C BCDF #### [facility] [address] [place] [address] % LYMPHOCYTE Canceled Normal [facility] Comment on above: Order Comment: TEST CBC AND DIFFERENTIAL WAS CANCELLED, 08/24/2021 18:56 Performed By: #### C BCDF #### [facility] [address] [place] [address] % MONOCYTE Canceled Normal [facility] Comment on above: Order Comment: TEST CBC AND DIFFERENTIAL WAS CANCELLED, 08/24/2021 18:56 Performed By: #### C BCDF #### [facility] [address] [place] [address] % NEUTROPHIL Canceled Normal [facility] Comment on above: Order Comment: TEST CBC AND DIFFERENTIAL WAS CANCELLED, 08/24/2021 18:56 Performed By: #### C BCDF #### [place] [address] [place] [address] BASOPHIL Canceled Normal [facility] Comment on above: Order Comment: TEST CBC AND DIFFERENTIAL WAS CANCELLED, 08/24/2021 18:56 Performed By: #### C BCDF #### [facility] [address] [place] [address] DIFFERENTIAL Canceled Normal [facility] Comment on above: Order Comment: TEST CBC AND DIFFERENTIAL WAS CANCELLED, 08/24/2021 18:56 Performed By: #### C BCDF #### [facility] [address] [place] [address] EOSINOPHIL Canceled Normal [facility] Comment on above: Order Comment: TEST CBC AND DIFFERENTIAL WAS CANCELLED, 08/24/2021 18:56 Performed By: #### C BCDF #### [facility] [address] [place] [address] HCT Canceled Normal [facility] Comment on above: Order Comment: TEST CBC AND DIFFERENTIAL WAS CANCELLED, 08/24/2021 18:56 Performed By: #### C BCDF #### [facility] [address] [place] [address] HGB Canceled Normal [facility] Comment on above: Order Comment: TEST CBC AND DIFFERENTIAL WAS CANCELLED, 08/24/2021 18:56 Performed By: #### C BCDF #### [facility] [address] [place] [address] LYMPHOCYTE Canceled Normal [facility] Comment on above: Order Comment: TEST CBC AND DIFFERENTIAL WAS CANCELLED, 08/24/2021 18:56 Performed By: #### C BCDF #### [facility] [address] [place] [address] MCHC Canceled Normal [facility] Comment on above: Order Comment: TEST CBC AND DIFFERENTIAL WAS CANCELLED, 08/24/2021 18:56 Performed By: #### C BCDF #### [facility] [address] [place] [address] MCV Canceled Normal [facility] Comment on above: Order Comment: TEST CBC AND DIFFERENTIAL WAS CANCELLED, 08/24/2021 18:56 Performed By: #### C BCDF #### [facility] [address] [place] [address] MONOCYTE Canceled Normal [facility] Comment on above: Order Comment: TEST CBC AND DIFFERENTIAL WAS CANCELLED, 08/24/2021 18:56 Performed By: #### C BCDF #### [facility] [address] [place] [address] NEUTROPHIL Canceled Normal [facility] Comment on above: Order Comment: TEST CBC AND DIFFERENTIAL WAS CANCELLED, 08/24/2021 18:56 Performed By: #### C BCDF #### [facility] [address] [place] [id number] NUCLEATED RBC Canceled Normal [facility] Comment on above: Order Comment: TEST CBC AND DIFFERENTIAL WAS CANCELLED, 08/24/2021 18:56 Performed By: #### C BCDF #### [facility] [address] [place] [id number] PLT Canceled Normal [facility] Comment on above: Order Comment: TEST CBC AND DIFFERENTIAL WAS CANCELLED, 08/24/2021 18:56 Performed By: #### C BCDF #### [facility] [address] [place] [address] RBC Canceled Normal [facility] Comment on above: Order Comment: TEST CBC AND DIFFERENTIAL WAS CANCELLED, 08/24/2021 18:56 Performed By: #### C BCDF #### [place] [address] [place] [address] RDW-CV Canceled Normal [facility] Comment on above: Order Comment: TEST CBC AND DIFFERENTIAL WAS CANCELLED, 08/24/2021 18:56 Performed By: #### C BCDF #### [facility] [address] [place] [address] WBC Canceled Normal [facility] Comment on above: Order Comment: TEST CBC AND DIFFERENTIAL WAS CANCELLED, 08/24/2021 18:56 Performed By: #### C BCDF #### [facility] [address] [place] [id number] COMPREHENSIVE PANELon 2020 ALBUMIN Canceled Normal [facility] Comment on above: Order Comment: TEST COMPREHENSIVE PANEL WAS CANCELLED, 08/24/2021 18:56 Performed By: #### C MP #### [facility] [address] [place] [address] ALKALINE PHOSPHATASE Canceled Normal [facility] Comment on above: Order Comment: TEST COMPREHENSIVE PANEL WAS CANCELLED, 08/24/2021 18:56 Performed By: #### C MP #### [facility] [address] [place] [address] ALT Canceled Normal [facility] Comment on above: Order Comment: TEST COMPREHENSIVE PANEL WAS CANCELLED, 08/24/2021 18:56 Result Comment: Yanni ents treated with Sulfasalazine may generate falsely decreased results for ALT. Performed By: #### C MP #### [facility] [address] [place] [address] ANION GAP Canceled Normal [facility] Comment on above: Order Comment: TEST COMPREHENSIVE PANEL WAS CANCELLED, 08/24/2021 18:56 Performed By: #### C MP #### [facility] [address] [place] [address] AST Canceled Normal [facility] Comment on above: Order Comment: TEST COMPREHENSIVE PANEL WAS CANCELLED, 08/24/2021 18:56 Performed By: #### C MP #### [facility] [address] [place] [address] BICARBONATE Canceled Normal [facility] Comment on above: Order Comment: TEST COMPREHENSIVE PANEL WAS CANCELLED, 08/24/2021 18:56 Performed By: #### C MP #### [facility] [address] [place] [address] BILIRUBIN,TOTAL Canceled Normal [facility] Comment on above: Order Comment: TEST COMPREHENSIVE PANEL WAS CANCELLED, 08/24/2021 18:56 Performed By: #### C MP #### [facility] [address] [place] [address] CALCIUM Canceled Normal [facility] Comment on above: Order Comment: TEST COMPREHENSIVE PANEL WAS CANCELLED, 08/24/2021 18:56 Performed By: #### C MP #### [facility] [address] [place] [address] CHLORIDE Canceled Normal [facility] Comment on above: Order Comment: TEST COMPREHENSIVE PANEL WAS CANCELLED, 08/24/2021 18:56 Performed By: #### C MP #### [facility] [address] [place] [address] CREATININE Canceled Normal [facility] Comment on above: Order Comment: TEST COMPREHENSIVE PANEL WAS CANCELLED, 08/24/2021 18:56 Performed By: #### C MP #### [facility] [address] [place] [address] GFR- AM. Canceled Normal [facility] Comment on above: Order Comment: TEST COMPREHENSIVE PANEL WAS CANCELLED, 08/24/2021 18:56 Result Comment: CALC ULATIONS OF ESTIMATED GFR ARE PERFORMED USING THE MDRD STUDY EQUATION FOR THE IDMS-TRACEABLE CREATININE METHODS. CLIN CHEM 2007;53:766-72 Performed By: #### C MP #### [facility] [address] [place] [address] GFR-NON AM. Canceled Normal [facility] Comment on above: Order Comment: TEST COMPREHENSIVE PANEL WAS CANCELLED, 08/24/2021 18:56 Performed By: #### C MP #### [facility] [address] [place] [address] GLUCOSE Canceled Normal [facility] Comment on above: Order Comment: TEST COMPREHENSIVE PANEL WAS CANCELLED, 08/24/2021 18:56 Performed By: #### C MP #### [facility] [address] [place] [address] POTASSIUM Canceled Normal [facility] Comment on above: Order Comment: TEST COMPREHENSIVE PANEL WAS CANCELLED, 08/24/2021 18:56 Performed By: #### C MP #### [facility] [address] [place] [address] SODIUM Canceled Normal [facility] Comment on above: Order Comment: TEST COMPREHENSIVE PANEL WAS CANCELLED, 08/24/2021 18:56 Performed By: #### C MP #### [facility] [address] [place] [address] TOTAL PROTEIN Canceled Normal [facility] Comment on above: Order Comment: TEST COMPREHENSIVE PANEL WAS CANCELLED, 08/24/2021 18:56 Performed By: #### C MP #### [facility] [address] [place] [address] UREA NITROGEN Canceled Normal [facility] Comment on above: Order Comment: TEST COMPREHENSIVE PANEL WAS CANCELLED, 08/24/2021 18:56 Performed By: #### C MP #### [facility] [address] [place] [address] TROPONIN Ion 08-24-2021 TROPONIN I Canceled Normal [facility] Comment on above: Order Comment: TEST TROPONIN I WAS CANCELLED, 08/24/2021 18:56 Result Comment: LESS THAN 0.04 NG/ML: NEGATIVE REPEAT TESTING IN THREE TO SIX HOURS IF CLINICALLY INDICATED. 0.04 - 0.5 NG/ML: CONSISTENT WITH POSSIBLE CARDIAC DAMAGE AND POSSIBLE INCREASED CLINICAL RISK. SERIAL MEASUREMENTS MAY HELP ASSESS EXTENT OF MYOCARDIAL DAMAGE. >0.5 NG/ML: CONSISTENT WITH CARDIAC DAMAGE, INCREASED CLINICAL RISK AND MYOCARDIAL INFARCTION. SERIAL MEASUREMENTS MAY HELP ASSESS EXTENT OF MYOCARDIAL DAMAGE. . Note: Troponin I testing is performed using different testing methodology at [facility] than at other [facility]. Direct result comparisons should only be made within the same method. . Biotin interference may cause falsely decreased results. Patients taking a Biotin dose of up to 5 mg/day should refrain from taking Biotin for 24 hours before sample collection. Providers may contact their laboratory for further information. Performed By: #### C BCDF #### [facility] [address] [place] [address] No Panel Informationon 08-23 [email or web address] e?AtxcbrbRA=[email or web address]&Da te=10-04-2020&Time=17%3a 54%3a45%3a00&TestType=EC G&Site=1&OutputType=PDF& Ext=PDF [facility] Work Phone: Please see ED Provid er Note for formal interpretation [facility] Work Phone: Normal [facility] Work Phone: [phone] [facility] Work Phone: [phone] [facility] Work Phone: [phone] [facility] Work Phone: [phone] [facility] Work Phone: [phone] [facility] Work Phone: [phone] [facility] Work Phone: [phone] [facility] Work Phone: -[phone] [facility] Work Phone: [phone] [facility] Work Phone: [phone] [facility] Work Phone: [phone] [facility] Work Phone: 100 1 [facility] Work Phone: 158 1 [facility] Work Phone: 83 1 [facility] Work Phone: Office Visit (Vascular Surge [facility])on 08-23-2021 Follow-up visit Diagnoses/Problems Assessed Renal artery stenosis (440.1) (I70.1) Provider Impressions f/u w Dr. Lott for management of ELIANA. Chief Complaint left renal artery stenosis History of Present Illness Patient with left renal artery stenosis. He was seen previously by Dr. Lott and offered revascularization, but he says he chickened out. In the office today he is drunk and verbally abusive with staff and myself. I ended the evaluation and told him to reach back out to Dr. Lott if he is interested in treatment for his ELIANA. Active Problems Problems Acute back pain (724.5) (M54.9) Anemia (285.9) (D64.9) Ascending aortic aneurysm (441.2) (I71.2) Bipolar 2 disorder (296.89) (F31.81) Chest pain (786.50) (R07.9) Chronic bilateral low back pain without sciatica (724.2,338.29) (M54.50,G89.29) Constipation (564.00) (K59.00) Costochondritis (733.6) (M94.0) COVID-19 (079.89) (U07.1) Esophageal spasm (530.5) (K22.4) Essential hypertension (401.9) (I10) ETOH abuse (305.00) (F10.10) GERD (gastroesophageal reflux disease) (530.81) (K21.9) Palpitations (785.1) (R00.2) Pancytopenia (284.19) (D61.818) Renal artery stenosis (440.1) (I70.1) Screening for colorectal cancer (V76.51,V76.41) (Z12.11,Z12.12) Segmental and somatic dysfunction of lumbar region (739.3) (M99.03) Social History Problems Current smoker (305.1) (F17.200) ETOH abuse (305.00) (F10.10) Former smoker (V15.82) (Z87.891) Regular alcohol consumption (V69.8) (Z78.9) Allergies Medication Caffeine Chest Pain;; Recorded By: Neil Billings; 06/28/2021 9:27:50 AM Erythromycin TABS Adverse Reaction; Gatrointestinal upset; Updated By: Meagan Baugh; 02/22/2021 3:30:50 PM polyethylene glycol 3350 Gatrointestinal upset; Recorded By: Antonia Cuenca; 02/16/2021 10:12:41 AM Current Meds Medication NameInstruction cloNIDine HCl - 0.2 MG Oral TabletTAKE 1 TABLET 3 TIMES DAILY. Dicyclomine HCl - 10 MG Oral Capsule Lidocaine Viscous HCl - 2 % Mouth/Throat Solutiontake one teaspoon and swish and spit four times a day as needed Losartan Potassium 50 MG Oral TabletTAKE 1 TABLET BY MOUTH EVERY DAY Metoprolol Succinate ER 25 MG Oral Tablet Extended Release 24 HourTAKE 1 TABLET DAILY. Nitroglycerin 0.4 MG Sublingual Tablet SublingualPLACE 1 TABLET UNDER THE TONGUE EVERY 5 MINUTES UP TO 3 DOSES NEEDED FOR CHEST PAIN (call 911 with 3rd dose). Senna Laxative 8.6 MG Oral TabletTake one tablet daily at bedtime Vitals Vital Signs Recorded: [id number] 04:23PM Heart Rate86 Rpaowgnntqk25 Idvnazfz382, RUE, Sitting Rtcsfmovh88, RUE, Sitting Height5 ft 6 in Rjxttr030 lb BMI Edkinxwxaq47.93 kg/m2 BSA Calculated2.02 O2 Xgkvzwtvhr43 Physical Exam smells of alcohol clearly inebriated Time Time spent directly with patient/family/caregiver : 10 minutes. Documentation time: 5 minutes. Total time on date of patient encounter: 15 minutes. Signatures Electronically signed by : Max Delatorre MD; Aug 23 2021 5:18PM EST (Author) Normal [facility] Triage - EDon 08-23-2021 Triage - ED Chart Review: ARRIVAL INFORMATION Mode of Arrival: private vehicle CHIEF COMPLAINT HOSEA ALVAREZ is a Male patient with a chief complaint of chest pain. Other Complaints: chest pain and palpitations x 20 min- was at [facility] surgery appt- denies sob radiation of pain dizziness N/V Triage Date/Time: 23-Aug-2021 17:50 WILMAN: 2 Pain Rating (0-10): 3 = Mild Vital Signs: Temperature: 97.3F ( 36.3C) taken forehead Blood Pressure: 114/73 Mean: Heart Rate: 87 Respiratory Rate: 18 Pulse Oximetry: 94% on room air, no respiratory support. Lynda Coma Scale: Best Eye Response: (E4) spontaneous Best Motor Response: (M6) obeys commands Best Verbal Response: (V5) oriented Lynda Score: 15 [place] Assessment Qualifiers: patient not sedated/intubated and no eye obstruction present Cough lasting greater than 3 weeks: no Allergies: yes Mask applied: yes Patient has homicidal thoughts: no Symptoms Are POSITIVE For: pain Symptoms Are Negative For: anxiety, chills, diaphoresis, dyspnea, headache, loss of consciousness, nausea, numbness, tingling and weakness Risk Screens Suicide Risk Screen In the Past Month: Have you wished you were or wished you could go to sleep and not wake up no In the Past Month: Have you had any actual thoughts of killing yourself no In Your Lifetime: Have you ever done anything, started to do anything, or prepared to do anything to end your life no Molina Fall Scale Screening Has the patient fallen before (or is the patient in the ED as a result of a fall) has not had a fall Does the patient have an impaired gait does not have impaired gait Is the patient cognitively impaired not cognitively impaired Interventions: Molina Fall Interventions: LOW INTERVENTIONS: *patient oriented to surroundings and call system, * patient/family falls education completed and documented, *patients fall status communicated during bedside handoff, *whiteboard updated, *mode of toileting discussed with patient, *bed in low position with brakes locked, *call light in reach, * non-skid footwear TRAVEL HISTORY Travel History Coronavirus Screening: no exposure or symptoms Travel Exposure History: NO travel to International locations in the past 30 days PAIN Pain Scale Used: SHANNON Pain Rating (0-10): 3 = Mild Past Medical History: Past Medical History Reviewedyes Electronic Signatures: Nicole Paredes (BROOKLYNN) (Signed 23-Aug-2021 17:55) Authored: Quick Triage, Risk Screens, Pain, Travel History, Chart Review, Scores, Past Medical History Last Updated: 23-Aug-2021 17:55 by Nicole Paredes (RN) Normal [facility] CBC AND DIFFERENTIALon 08-20 % AUTOMATED IMMATURE GRAN 0.3 % Normal 0.0 - 0.9 [facility] Comment on above: Result Comment: Kath ture Granulocyte Count (IG) includes promyelocytes, myelocytes and metamyelocytes but does not include bands. Percent differential counts (%) should be interpreted in the context of the absolute cell counts (cells/L). Performed By: #### C BCDF ####[facility] [id number] [place] [address] Basophils (Bld) [#/Vol] 0.02 10*3/uL Normal 0.00 - 0.10 [facility] Comment on above: Performed By: #### C BCDF ####[facility] [id number] [place] [address] Basophils/100 WBC (Bld) 0.5 % 0.0 - 2.0 [facility] Comment on above: Performed By: #### C BCDF ####[facility] [id number] [place] [address] Eosinophils (Bld) [#/Vol] 0.10 10*3/uL Normal 0.00 - 0.70 [facility] Comment on above: Performed By: #### C BCDF ####[facility] [id number] [place]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 Normal 1.45-7.50 [facility] Absolute nRBC <0.01 Normal <0.01 [facility] Basophils/100 WBC (Bld) 0.6 % Normal [facility] DTYPE Auto Diff Normal [facility] Eosinophils (Bld) [#/Vol] 0.06 10*3/uL Normal <0.46 [facility] Eosinophils/100 WBC (Bld) 1.9 % Normal [facility] Erythrocyte distribution width (RBC) [Ratio] 13.5 % Normal 11.5-15.0 [facility] Hematocrit (Bld) [Volume fraction] 38.8 % Low 39.0-51.0 [facility] Hemoglobin (Bld) [Mass/Vol] 13.1 g/dL Normal 13.0-17.0 [facility] Lymphocytes (Bld) [#/Vol] 0.80 10*3/uL Low 1.00-4.00 [facility] Lymphocytes/100 WBC (Bld) 24.7 % Normal [facility] MCH 28.7 pG Normal 26.0-34.0 [facility] MCHC (RBC) [Mass/Vol] 33.8 g/dL Normal 30.5-36.0 [facility] MCV (RBC) [Entitic vol] 85.1 fL Normal 80.0-100.0 [facility] Monocytes/100 WBC (Bld) 10.5 % Normal [facility] Neutrophils/100 WBC (Bld) 62.3 % Normal [facility] NRBCs 0.0 /100 WBC Normal 0 [facility] Platelet mean volume (Bld) [Entitic vol] 11.7 fL Normal 9.0-12.7 [facility] Platelets (Bld) [#/Vol] 145 10*3/uL Low 150-400 [facility] RBC (Bld) [#/Vol] 4.56 10*6/uL Normal 4.20-6.00 [facility] WBC (Bld) [#/Vol] 3.24 10*3/uL Low 3.70-11.00 [facility] Comp Metabolic Panelon 08-19 Albumin [Mass/Vol] 4.4 g/dL Normal 3.9-4.9 [facility] ALP [Catalytic activity/Vol] 66 U/L Normal 38-113 [facility] ALT [Catalytic activity/Vol] 25 U/L Normal 10-54 [facility] Anion gap [Moles/Vol] 14 mmol/L Normal 9-18 [facility] AST [Catalytic activity/Vol] 22 U/L Normal 14-40 [facility] Bilirubin [Mass/Vol] 0.3 mg/dL Normal 0.2-1.3 [facility] Calcium [Mass/Vol] 9.5 mg/dL Normal 8.5-10.2 [facility] Chloride [Moles/Vol] 103 mmol/L Normal 97-105 [facility] CO2 [Moles/Vol] 24 mmol/L Normal 22-33 [facility] Creatinine [Mass/Vol] 0.98 mg/dL Normal 0.73-1.22 [facility] eGFR- Amer. >60 Normal [facility] eGFR-All Other Races >60 Normal [facility] Comment on above: Result Comment: eGFR (Estimated GFR) Units of measure: mL/min/1.73 meters squared eGFR is derived from the reexpressed MDRD Study equation using the following parameters: serum creatinine, age, gender and race. The creatinine assay has been calibrated to be traceable to IDMS. An eGFR <60 mL/min/1.73m2 for >3 months is consistent with chronic kidney disease. Refer to KDOQI guidelines for clinical interpretation. In patients with unstable renal function, e.g. those with acute kidney injury, the eGFR may not accurately reflect actual GFR. Note: On 11/18/2021, the eGFR calculation will be updated to the NKF-ASN Task Force recommended 2020 CKD-EPI creatinine equation which does not include a race variable. For more information or to access a 2020 CKD-EPI calculator, visit the National Kidney Foundation website at kidney.org/professionals/kdoqi/gfr_calculator. Glucose [Mass/Vol] 105 mg/dL High 74-99 [facility] Potassium [Moles/Vol] 4.2 mmol/L Normal 3.7-5.1 [facility] Protein [Mass/Vol] 7.0 g/dL Normal 6.3-8.0 [facility] Sodium [Moles/Vol] 141 mmol/L Normal 136-144 [facility] Urea nitrogen [Mass/Vol] 15 mg/dL Normal 9-24 [facility] ED NOTEon 08-19-2021 ED NOTE HNO ID: [id number] Author: Vita Guerrero RN Service: Nursing Author Type: Registered Nurse Type: ED Notes Filed: 08/19/2021 7:39 PM Note Text: Patient refused to leyt nurse put the bedside rail because it makes him feel uncomfortable. Patient educated to call before he gets up. [facility] ED NOTE HNO ID: [id number] Author: Vita Guerrero RN Service: Nursing Author Type: Registered Nurse Type: ED Notes Filed: 08/19/2021 7:38 PM Note Text: Patient was seen at [facility] twice today for chest pain and patient was fully worked up and discharge. Once patient was discharge he called EMS and had them bring him to [facility]. Patient is complaining of midline back pain and dizziness when he stands up. [facility] ED NOTE HNO ID: [id number] Author: Tabby Rhodes RN Service: ? Author Type: Registered Nurse Type: ED Notes Filed: 08/19/2021 7:14 PM Note Text: Bed: ED-08 Expected date: 08/19/21 Expected time: Means of arrival: [facility] FD ([id number]) Comments: [facility] [place] 7[address] [facility] ED PROV NOTEon 08-19-2021 ED PROV NOTE HNO ID: [id number] Author: Nessa Alejandre DO Service: Emergency Medicine Author Type: Physician Type: ED Provider Notes Filed: 08/19/2021 11:45 PM Note Text: ED Provider Note Patient Name: Hosea Alvarez SERVICE DATE: 08/19/21 History Patient presents with: Chest Pain Patient is a 51-year-old male brought in by EMS with complaint of some dizziness as well as some lower back discomfort. He states he was out shopping today when he was feeling a little bit dizzy. States his blood pressure earlier today was 160. Currently denies any chest pain. Denies any fevers or chills. No nausea vomiting diarrhea. Patient reports he was seen at [facility] twice earlier today. He states because the docs over there are contract physicians that they did not want to see him because they did not like his attitude. States he has a history of a thoracic aneurysm and is supposed to see a physician down in [place]. He states he sees a electrical software engineer over at [facility]. He states because of his size of his aneurysm is close to 5 cm that he likely needs to have surgery soon. History provided by: Patient rigger used: No PAST MEDICAL HISTORY Diagnosis Date - Hemorrhoids - Hypertension - Hypoglycemia No past surgical history on file. No family history on file. Social History Tobacco Use - Smoking status: Former Smoker Types: Cigarettes - Smokeless tobacco: Never Used Vaping Use - Vaping Use: Never used Substance and Sexual Activity - Alcohol use: Yes Alcohol/week: 7.0 standard drinks Types: 7 Cans of beer per week Comment: pt sts a beer a day. daily - Drug use: No - Sexual activity: Not on file ALLERGIES Allergen Reactions - Caffeine Rash Other reaction(s): Shakiness - [place] GI Upset, Rash, Vomiting Statused by Person: ?Tammy. Derrick(Altaf Meza2) on Statused by Person: ?SRAVANTHI MONGE([facility]) on Statused by Person: ?Tammy. 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 HENT: Negative for congestion, nosebleeds and rhinorrhea. Eyes: Negative for pain and visual disturbance. Respiratory: Negative for cough, chest tightness and shortness of breath. Cardiovascular: Negative for chest pain, palpitations and leg swelling. Gastrointestinal: Negative for abdominal pain, nausea and vomiting. Genitourinary: Negative for difficulty urinating and dysuria. Musculoskeletal: Positive for back pain. Negative for gait problem and neck stiffness. Skin: Negative for rash. Neurological: Negative for numbness and headaches. Hematological: Does not bruise/bleed easily. Psychiatric/Behavioral: Negative for agitation and behavioral problems. Physical Exam Vitals [08/19/21 191] BP Pulse Temp Temp src Resp SpO2 Weight Height 137/88 82 37.4 ?C (99.3 ?F) Oral 18 97 % 88.5 kg (195 lb) 1.676 m (5' 6 ) Physical Exam Vitals and nursing note reviewed. Constitutional: General: He is not in acute distress. Appearance: He is well-developed. HENT: Head: Normocephalic and atraumatic. Eyes: Conjunctiva/sclera: Conjunctivae normal. Pupils: Pupils are equal, round, and reactive to light. Cardiovascular: Rate and Rhythm: Normal rate and regular rhythm. Heart sounds: Normal heart sounds. No murmur heard. Pulmonary: Effort: Pulmonary effort is normal. No respiratory distress. Breath sounds: Normal breath sounds. Abdominal: General: Bowel sounds are normal. Palpations: Abdomen is soft. Tenderness: There is no abdominal tenderness. Musculoskeletal: General: Normal range of motion. Cervical back: Normal range of motion and neck supple. Skin: General: Skin is warm and dry. Capillary Refill: Capillary refill takes less than 2 seconds. Neurological: Mental Status: He is alert and oriented to person, place, and time. GCS: GCS eye subscore is 4. GCS verbal subscore is 5. GCS motor subscore is 6. Cranial Nerves: Cranial nerves are intact. Sensory: Sensation is intact. Motor: Motor function is intact. Coordination: Coordination is intact. Psychiatric: Behavior: Behavior normal. Diagnostic Testing ED Labs Ordered and Reviewed - No data to display Procedures ED Course / C (more content not included)... Normal [facility] High Sens Troponin Ton 08-19 High Sensitivity SITA Unable to assay due to interference from hemolysis. Suggest reorder as clinically indicated. Normal <12 [facility] High Sensitivity SITA 7 ng/L Normal <12 [facility] Comment on above: Result Comment: When assessing risk for acute coronary syndromes: In patients undergoing blood draw greater than or equal to 2 hours from symptom onset, with history of very low to moderate risk and non-ischemic ECG, an initial hs-Troponin T less than 12 ng/L AND a 1 hour delta hs-Troponin T less than 3 ng/L should be considered very low risk for 30 day MACE. Magnesiumon 08-19-2021 Magnesium [Mass/Vol] 1.7 mg/dL Normal 1.7-2.3 [facility] Provider Note - ED v3on 07-25 Provider Note - ED v3 Provider Note: Chart Review: ED NOTES ED NOTES: HPI: 51 y/o M past medical hx renal artery stenosis. Patient c/o back pain. Provoking - patient was seen here earlier today and medically cleared after being inapproriate with staff. Patient was then seen at [facility] and treated and released. He is returning again to this ER. Patient came in with EMS. He is talking, oriented x 3, breathing well and VS are stable. ROS: Review of Systems: Gen.: (-) fever. . Pulmonary: (-) shortness of breath, (-) cough, (-) hemoptysis. Psych: , (-) suicidality, (-) homicidal Review of systems is otherwise negative unless stated above or in history of present illness. PMHx: reviewed PSHx: reviewed Medications: Reviewed in nursing notes, Allergies: Reviewed PE: HEAD: Head exam included findings of head atraumatic, normocephalic. EYES: Eye exam included findings of eyelids normal to inspection, ENT: Ear exam normal, external ear normal, Nose exam normal, no nasal deformity, RESPIRATORY/CHEST: Respiratory exam included findings of no respiratory distress, UPPER EXTREMITY: Upper extremity exam included findings of inspection normal, Motor strength normal, Sensation intact. LOWER EXTREMITY: Lower extremity exam included findings of inspection normal, Range of motion normal. Patient walking in ER NEURO: [place] coma scale 15, Neuro exam findings include patient oriented to person, place and time, Speech normal. SKIN: Skin exam included findings of skin warm, dry, and normal in color. ER Course: Patient was seen and evaluated for back pain. Patient VSS, Patient was inappropriate with staff earlier and was medically cleared and discharged. He has visited other ERs today as well. He was medically cleared again. Security escorted off hospital property HISTORY OF PRESENTING ILLNESS HOSEA is a 51 year old Male and was seen by me at 19-Aug-2021 17:53 for a chief complaint of back pain . Triage Information: Most recent Vital Sign Value Date Temp (F): 98.4 08-19-2021 17:48 Temp (C): 36.8 08-19-2021 17:48 Heart Rate (beats/min): 86 08-19-2021 17:48 Respirations (breaths/min): 18 08-19-2021 17:48 SpO2 (%): 96 08-19-2021 17:48 BP Systolic (mm Hg): 154 08-19-2021 17:48 BP Diastolic (mm Hg): 63 08-19-2021 17:48 PAST MEDICAL HISTORY ALLERGIES/INTOLERANCES: Allergy Allergen: Erythromycin Base Type: Drug Reaction: Unknown Allergen: caffine Type: Food Reaction: Other Allergen: Cipro Type: Drug Reaction: Unknown Intolerance Allergen: polyethylene glycol 3350 Type: Drug Reaction: GI Upset HEALTH HISTORY: Family History Name:No family history of cancer Code:Z78.9 Name:No family history of coronary artery disease Code:Z78.9 Medical History Name:Chest pain Code:R07.9 Name:Renal artery stenosis Code:I70.1 Name:Pulmonary embolism Code:I26.99 Name:History of COVID-19 Code:Z86.16 Name:Ascending aortic aneurysm Code:I71.2 Name:Bipolar disorder Code:F31.9 Name:Palpitations Code:R00.2 Social History Name:Homeless Code:Z59.0 Name:Does not use illicit drugs Code:Z78.9 Name:Consumes alcohol occasionally Code:Z78.9 Name:Former smoker Code:Z87.891 OUTPATIENT MEDICATIONS: Home Medications Review Status for Reconciliation: N/A Med Status: Patient Currently Takes Medications Drug Name: cloNIDine 0.1 mg oral tablet Instructions: 1 tab(s) orally once a day, Drug Name: aspirin 81 mg oral tablet, chewable Instructions: 1 tab(s) chewed once a day Drug Name: atorvastatin 40 mg oral tablet Instructions: 1 tab(s) orally once a day Drug Name: losartan 50 mg oral tablet Instructions: 1 tab(s) orally once a day Drug Name: metoprolol succinate 25 mg oral tablet, extended release Instructions: 1 tab(s) orally once a day SIGNIFICANT EVENTS: Past Medical History Description:Hypertension (HTN) Description:Abdominal Aortic Aneurysm (AAA) Description:Heart murmur Description:Arrythmia Additional Notes: inverted T waves Description:RENAL STENOSIS Description:intestinal tumor DISPOSITION Diagnosis/Annotation: ED Dx Name:Back pain Code:M54.9 Disposition: discharged CONSULT CRITICAL CARE TIME Is this a critically ill patient: no Electronic Signatures: Daniela Church) (Signed 25-Oct-2021 10:58) Authored: ED Notes, HPI, PMH, Clinical Impression, Attestation, Chart Review, Scores Last Updated: 25-Oct-2021 10:58 by Daniela Church) References: 1. Data Referenced From Triage - ED 19-Aug-2021 17:48 Normal [facility] Provider Note - ED v3 Provider Note: Chart Review: ED NOTES ED NOTES: HPI: 51 y/o M past medical hx renal artery stenosis. Patient c/o chest pain Provoking factors- unk, none. Patient with h renal artery stenosis and has had difficult time with f/u Region - chest and neck Severity - 3/10 Timing - today Associated symptoms - no n/v, diaphoresis ROS: Gen.: (-) weight loss, (-) fatigue, (-) anorexia, (-) insomnia, (-) fever. Eyes: (-) vision loss, , (-) drainage, (-) eye pain. ENT: (-) pharyngitis, (-)dry mouth. Cardiac: (-) palpitations, (-) syncope, (-) near syncope. Pulmonary: (-) shortness of breath, (-) cough, (-) hemoptysis. Heme/lymph: (-) swollen glands, (-) fever, (-) bleeding. GI: (-) abdominal pain, (-) change in bowel habits, (-) melena, (-) hematemesis, (-) hematochezia, (-) nausea, (-) vomiting, (-) diarrhea. : (-) dysuria, (-) frequency, (-) urgency, Skin: (-) rashes. Psych:(-) suicidality, (-) homicidal Review of systems is otherwise negative unless stated above or in history of present illness. PMHx: reviewed PSHx: reviewed Medications: Reviewed in nursing notes, EMR, and discussed with patient Allergies: Reviewed in EMR and discussed with patient PE: HEAD: Head exam included findings of head atraumatic, normocephalic. EYES: Eye exam included findings of eyelids normal to inspection, Conjunctiva normal, Sclera normal. ENT: Ear exam normal, external ear normal, Nose exam normal, no nasal deformity, RESPIRATORY/CHEST: Respiratory exam included findings of no respiratory distress, Breath sounds clear. Regular rate and rhythm. UPPER EXTREMITY: Upper extremity exam included findings of inspection normal, Motor strength normal, Sensation intact. LOWER EXTREMITY: Lower extremity exam included findings of inspection normal, Range of motion normal. NEURO: Lynda coma scale 15, Neuro exam findings include patient oriented to person, place and time, Speech normal. SKIN: Skin exam included findings of skin warm, dry, and normal in color. ER Course: Patient was seen and evaluated for chest pain. Patient VSS, EKG no stemi. Patient was inappropriate with staff. He was medically cleared and was asked to leave ER. Security escorted off hospital property HISTORY OF PRESENTING ILLNESS HOSEA is a 51 year old Male and was seen by me at 19-Aug-2021 12:18 for a chief complaint of chest pain . Triage Information: Most recent Vital Sign Value Date Temp (F): 98 08-19-2021 12:06 Temp (C): 36.6 08-19-2021 12:06 Heart Rate (beats/min): 89 08-19-2021 12:06 Respirations (breaths/min): 16 08-19-2021 12:06 SpO2 (%): 97 08-19-2021 12:06 BP Systolic (mm Hg): 91 08-19-2021 12:06 BP Diastolic (mm Hg): 55 08-19-2021 12:06 PAST MEDICAL HISTORY PSYCHOSOCIAL SCREENING: NO: concerns for safety at home, feelings of depression, feels like hurting others and feels like hurting self ALLERGIES/INTOLERANCES: Allergy Allergen: Erythromycin Base Type: Drug Reaction: Unknown Allergen: caffine Type: Food Reaction: Other Allergen: Cipro Type: Drug Reaction: Unknown Intolerance Allergen: polyethylene glycol 3350 Type: Drug Reaction: GI Upset HEALTH HISTORY: Family History Name:No family history of cancer Code:Z78.9 Name:No family history of coronary artery disease Code:Z78.9 Medical History Name:Chest pain Code:R07.9 Name:Renal artery stenosis Code:I70.1 Name:Pulmonary embolism Code:I26.99 Name:History of COVID-19 Code:Z86.16 Name:Ascending aortic aneurysm Code:I71.2 Name:Bipolar disorder Code:F31.9 Name:Palpitations Code:R00.2 Social History Name:Homeless Code:Z59.0 Name:Does not use illicit drugs Code:Z78.9 Name:Consumes alcohol occasionally Code:Z78.9 Name:Former smoker Code:Z87.891 OUTPATIENT MEDICATIONS: Home Medications Review Status for Reconciliation: N/A Med Status: Patient Currently Takes Medications Drug Name: cloNIDine 0.1 mg oral tablet Instructions: 1 tab(s) orally once a day, Drug Name: aspirin 81 mg oral tablet, chewable Instructions: 1 tab(s) chewed once a day Drug Name: atorvastatin 40 mg oral tablet Instructions: 1 tab(s) orally once a day Drug Name: losartan 50 mg oral tablet Instructions: 1 tab(s) orally once a day Drug Name: metoprolol succinate 25 mg oral tablet, extended release Instructions: 1 tab(s) orally once a day SIGNIFICANT EVENTS: Past Medical History Description:Hypertension (HTN) Description:Abdominal Aortic Aneurysm (AAA) Description:Heart murmur Description:Arrythmia Additional Notes: inverted T waves Description:RENAL STENOSIS Description:intestinal tumor DISPOSITION Diagnosis/Annotation: ED Dx Name:Chest pain, unspecified Code:R07.9 Disposition: discharged CONSULT CRITICAL CARE TIME Is this a critically ill patient: no Electronic Signatures: Lynnette (more content not included)... Normal [facility] Triage - EDon 08-19-2021 Triage - ED Quick Triage: The patient and/or guardian verbally acknowledges placement for services into the following (when Urgent Care Service hours are operating):emergency department Chart Review: PRIMARY ASSESSMENT ABCD Normal Findings: airway open and patent, breathing normal, circulation normal and alert and oriented ARRIVAL INFORMATION Means of Arrival: Ambulatory Mode of Arrival: private vehicle Arrival From: home Accompanied By: self CHIEF COMPLAINT HOSEA ALVAREZ is a Male patient with a chief complaint of chest pain. Triage Date/Time: 19-Aug-2021 12:06 WILMAN: 2 Pain Rating (0-10): 3 = Mild Pain location: Chest/Neck Vital Signs: Temperature: 98.0F ( 36.6C) taken temporal Blood Pressure: 91/55 Mean: Heart Rate: 89 Respiratory Rate: 16 Pulse Oximetry: 97% on room air, no respiratory support. Height: 5 feet 6.00 inches. 167.6 CM Weight: 198.4 pounds. Calculated 90.0 kg. (stated) Calculated BMI (kg/m2): 32.040 Calculated BSA (m2) 2.05 Lynda Coma Scale: Best Eye Response: (E4) spontaneous Best Motor Response: (M6) obeys commands Best Verbal Response: (V5) oriented Lynda Score: 15 Cough lasting greater than 3 weeks: no Allergies: yes Mask applied: yes Patient has homicidal thoughts: no Symptoms Are POSITIVE For: pain Symptoms Are Negative For: anxiety, chills, diaphoresis, dyspnea, headache, loss of consciousness, nausea, numbness, tingling and weakness Chest Pain Location-Left: upper chest Chest Pain Radiation-Left: neck Risk Screens Suicide Risk Screen In the Past Month: Have you wished you were or wished you could go to sleep and not wake up no In the Past Month: Have you had any actual thoughts of killing yourself no In Your Lifetime: Have you ever done anything, started to do anything, or prepared to do anything to end your life no Molina Fall Scale Screening Has the patient fallen before (or is the patient in the ED as a result of a fall) has not had a fall Does the patient have an impaired gait does not have impaired gait Is the patient cognitively impaired not cognitively impaired Interventions: Molina Fall Interventions: LOW INTERVENTIONS: *patient oriented to surroundings and call system, * patient/family falls education completed and documented, *patients fall status communicated during bedside handoff, *whiteboard updated, *mode of toileting discussed with patient, *bed in low position with brakes locked, *call light in reach, * non-skid footwear PAST MEDICAL HISTORY Immunization History: Last Known Tetanus Immunization: Unknown TRAVEL HISTORY Travel History Coronavirus Screening: no exposure or symptoms Travel Exposure History: NO travel to International locations in the past 30 days PAIN Pain Scale Used: SHANNON Pain Assessment: Bilateral:, upper, chest, yes and pressure Pain Rating (0-10): 3 = Mild Past Medical History: Past Medical History Reviewedyes Electronic Signatures: Benjamin Gilman (EMT-P) (Signed 19-Aug-2021 12:14) Authored: Quick Triage, Risk Screens, Pain, Arrival, ABCD, Immunizations, Travel History, Chart Review, Scores, Past Medical History Last Updated: 19-Aug-2021 12:14 by Benjamin Gilman (EMT-P) [facility] XR CHEST 2V FRONTAL/LATon XR CHEST 2V FRONTAL/LAT * * *Final Report* * * DATE OF EXAM: Aug 19 2021 8:07PM HCX [id number] - XR CHEST 2V FRONTAL/LAT / PROCEDURE REASON: Chest pain or SOB, pleurisy or effusion suspected * * * * Physician Interpretation * * * * RESULT: EXAMINATION: CHEST RADIOGRAPH (2 VIEW FRONTAL and LATERAL) CLINICAL HISTORY: Chest pain, SOB; pleurisy or effusion suspected MQ: [id number] EXAM DATE/TIME: 08/19/2021 8:07 PM COMPARISON: 08/15/2021 RESULT: Lines, tubes, and devices: None. Lungs and pleura: No consolidation. No lung mass. No pleural effusion. No pneumothorax. Cardiomediastinal silhouette: Heart size is mildly enlarged. Central pulmonary vasculature is within normal limits. Bones and soft tissues: Degenerative changes are present within the thoracic spine. IMPRESSION: No acute radiographic abnormality. Transcribed Using Voice Recognition Transcribe Date/Time: Aug 19 2021 8:30P Dictated by: TEO SPRING MD This examination was interpreted and the report reviewed and electronically signed by: TEO SPRING MD on Aug 19 2021 8:31PM EST [id number] [facility] Provider Note - ED Care Nena galloway 08-13-2021 Provider Note - ED Care Transition ED Care Transition: Chart Review: ED NOTES ED NOTES: Patient was handed off to me from the previous team. For full history, physical, and prior ED course, please see previous provider note prior to patient handoff. This is an addendum to the record. HOSPITAL COURSE/MEDICAL DECISION MAKING: Patient is a 51yo male with a Hx of thoracic aortic aneurysm and renal artery stenosis presenting to the ED with chest pain. Pt was signed out pending CT angio. CT angio showed redemonstration of his Thoracic aortic aneurysm measuring approximately 5 cm, slightly increased when compared to the prior exam. No acute dissection. Pt remained stable and felt well in the ED. Patient is provided names of surgeons to follow-up with outpatient patient has appointment with the doctor in [place] that he has not yet seen. Additionally patient has establish care where he is from in [place]. Patient is given return precautions and is discharged home in stable condition without any current symptomology of chest or back pain. Blood pressure on discharge is within normal limits. Throughout the ED stay, the patient was monitored and re-examined for any changes in stability or symptomatology. DISPOSITION: Home The diagnosis and plan of care was also discussed with the patient. All the patient's questions were answered. The patient was receptive and agreeable to the plan of care. The patient was instructed to return to the emergency department if any symptoms recurred, worsened, or if there was any additional concerns. CLINICAL IMPRESSION Diagnosis/Annotation: ED Dx Name:Chest pain Code:R07.9 Name:Back pain Code:M54.9 Name:Hypertension Code:I10 Name:History of aortic aneurysm Code:Z86.79 Disposition: discharged Type: home ATTESTATION Attestation: I saw and evaluated the patient. I personally obtained the liriano and critical portions of the history and physical exam or was physically present for liriano and critical portions performed by the resident/fellow. I reviewed the resident/fellows documentation and discussed the patient with the resident/fellow. I agree with the resident/fellows medical decision making as documented in the residents note CRITICAL CARE TIME Is this a critically ill patient: no Electronic Signatures: Triston Orozco) (Signed 14-Aug-2021 12:47) Authored: Attestation, Chart Review Co-Signer: ED Notes, Clinical Impression, Attestation, Chart Review, Scores Noemi Palomino (Resident)) (Signed 14-Aug-2021 11:23) Authored: ED Notes, Clinical Impression, Attestation, Chart Review, Scores Last Updated: 14-Aug-2021 12:47 by Triston Orozco) Normal [facility] CBCon 08-12-2021 Erythrocyte distribution width (RBC) [Ratio] 13.2 % Normal 11.5 - 14.5 [facility] Comment on above: Performed By: #### C BC ####[id number] [place] [address] Hematocrit (Bld) [Volume fraction] 35.8 % Low 41.0 - 52.0 [facility] Comment on above: Performed By: #### C BC ####[id number] [place] [address] Hemoglobin (Bld) [Mass/Vol] 11.5 g/dL Low 13.5 - 17.5 [facility] Comment on above: Performed By: #### C BC ####[id number] [place] [address] MCHC (RBC) [Mass/Vol] 32.1 g/dL Normal 32.0 - 36.0 [facility] Comment on above: Performed By: #### C BC ####[id number] [place] [address] MCV (RBC) [Entitic vol] 86 fL Normal 80 - 100 [facility] Comment on above: Performed By: #### C BC ####[id number] [place] [address] NUCLEATED RBC 0.0 /100 WBC Normal 0.0-0.0 [facility] Comment on above: Performed By: #### C BC ####[id number] [place] [address] Platelets (Bld) [#/Vol] 148 10*3/uL Low 150 - 450 [facility] Comment on above: Performed By: #### C BC ####[id number] [place] [address] RBC 4.18 x10E12/L Low 4.50 - 5.90 [facility] Comment on above: Performed By: #### C BC ####[id number] [place] [address] WBC (Bld) [#/Vol] 3.6 10*3/uL Low 4.4 - 11.3 [facility] Comment on above: Performed By: #### C BC ####[id number] [place] [address] CT Angio Cheston 08-12-2021 CTA Chest vessels Normal [facility] Work Phone: Laboratory - Hematology and Cell countson 08-12-2021 Erythrocyte distribution width (RBC) [Ratio] 13.2 % See Below [facility] Work Phone: Comment on above: Reference Range: 11. 5 - 14.5 Hematocrit (Bld) [Volume fraction] 35.8 % below low threshold See Below [facility] Work Phone: Comment on above: Reference Range: 41. 0 - 52.0 Hemoglobin (Bld) [Mass/Vol] 11.5 g/dL below low threshold See Below [facility] Work Phone: Comment on above: Reference Range: 13. 5 - 17.5 MCHC (RBC) [Mass/Vol] 32.1 g/dL See Below [facility] Work Phone: Comment on above: Reference Range: 32. 0 - 36.0 MCV (RBC) [Entitic vol] 86 fL 80 - 100 [facility] Work Phone: Platelets (Bld) [#/Vol] 148 10*3/uL below low threshold 150 - 450 [facility] Work Phone: RBC (Bld) [#/Vol] 4.18 {x10E12/L} below low threshold See Below [facility] Work Phone: Comment on above: Reference Range: 4.5 0 - 5.90 WBC (Bld) [#/Vol] 3.6 10*3/uL below low threshold 4.4 - 11.3 [facility] Work Phone: No Panel Informationon 08-12 0.0 {/100_WBC} 0.0-0.0 [facility] Work Phone: Provider Note - ED v3on 07-25 Provider Note - ED v3 Provider Note: Chart Review: ED NOTES ED NOTES: Chief Complaint: chest pain HPI: Patient is a 51yo male with a Hx of thoracic aortic aneurysm and renal artery stenosis presenting to the ED with chest pain, currently rated 4/10 in severity. This started spontaneously at 2pm today, described by pt as substernal pressure that is also felt in the middle of his back. He went to [facility] and was sent home after being given metoprolol and losartan. However, the pain continued to worsen and peaked at 4pm; pt reports that his BP at the time was 180/120 by inflatable cuff. Pt took clonidine and the pain subsided soon after. Pt states he now feels drowsy due to the meds he took. Notably, pt has a history of thoracic aortic aneurysm. ROS: negative, except as noted in HPI. PMHx: thoracic aortic aneurysm, aortic regurgitation, renal artery stenosis, oral abscess; reviewed, documented below per EMR. 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 Allergies: Reviewed, documented below per EMR. Medications: clonidine, metoprolol, losartan, nitroglycerin, penicillin Physical Exam: VS: 36.8 deg C; HR 57; RR 18; BP 128/81; SpO2 96% RA General: Well appearing with some drowsiness. No acute distress. Eyes: Extraocular movements grossly intact. No scleral icterus. HENT: Atraumatic. Normocephalic. Moist mucous membranes. Neck: The neck is soft and supple without meningismus. CV: Regular rate. No murmurs, rubs, gallops appreciated. Resp: Clear to auscultation bilaterally. Non-labored breathing. GI: Soft, mildly tender to palpation in the right abdomen. Nondistended. No rebound, guarding. No masses. Skin: Warm, dry, intact. No systemic rashes or lesions appreciated. Neuro: Alert. No focal neuro deficits observed. Speech fluent. Answers questions appropriately. Psych: Appropriate. Kempt. Labs/Imaging: CXR - no evidence of acute cardiopulmonary process ECG - unremarkable, no ischemic changes Final Impression: c/f complications of thoracic aortic aneurysm Disposition/Plan: - ordered CT angio - monitor vital signs Condition at disposition: Stable. Becky Cardona (MS3) HISTORY OF PRESENTING ILLNESS HOSEA is a 51 year old Male and was seen by me at 12-Aug-2021 17:29 for a chief complaint of chest pain . Triage Information: Most recent Vital Sign Value Date Temp (F): 98.2 08-12-2021 17:23 Temp (C): 36.8 08-12-2021 17:23 Heart Rate (beats/min): 57 08-12-2021 17:23 Respirations (breaths/min): 18 08-12-2021 17:23 SpO2 (%): 96 08-12-2021 17:23 BP Systolic (mm Hg): 128 08-12-2021 17:23 BP Diastolic (mm Hg): 81 08-12-2021 17:23 PAST MEDICAL HISTORY ALLERGIES/INTOLERANCES: Allergy Allergen: Erythromycin Base Type: Drug Reaction: Unknown Allergen: caffine Type: Food Reaction: Other Allergen: Cipro Type: Drug Reaction: Unknown Intolerance Allergen: polyethylene glycol 3350 Type: Drug Reaction: GI Upset HEALTH HISTORY: Family History Name:No family history of cancer Code:Z78.9 Name:No family history of coronary artery disease Code:Z78.9 Medical History Name:Chest pain Code:R07.9 Name:Renal artery stenosis Code:I70.1 Name:Pulmonary embolism Code:I26.99 Name:History of COVID-19 Code:Z86.16 Name:Ascending aortic aneurysm Code:I71.2 Name:Bipolar disorder Code:F31.9 Name:Palpitations Code:R00.2 Social History Name:Homeless Code:Z59.0 Name:Does not use illicit drugs Code:Z78.9 Name:Consumes alcohol occasionally Code:Z78.9 Name:Former smoker Code:Z87.891 OUTPATIENT MEDICATIONS: Home Medications Review Status for Reconciliation: N/A Med Status: Patient Currently Takes Medications Drug Name: losartan 50 mg oral tablet Instructions: 1 tab(s) orally once a day Drug Name: cloNIDine 0.1 mg oral tablet Instructions: 1 tab(s) orally once a day, Drug Name: metoprolol succinate 25 mg oral tablet, extended release Instructions: 1 tab(s) orally once a day Drug Name: aspirin 81 mg oral tablet, chewable Instructions: 1 tab(s) chewed once a day Drug Name: atorvastatin 40 mg oral tablet Instructions: 1 tab(s) orally once a day SIGNIFICANT EVENTS: Past Medical History Description:Hypertension (HTN) Description:Abdominal Aortic Aneurysm (AAA) Description:Heart murmur Description:Arrythmia Additional Notes: inverted T waves Description:RENAL STENOSIS Description:intestinal tumor DISPOSITION Diagnosis/Annotation: ED Dx Name:Chest pain Code:R07.9 Name:Back pain Code:M54.9 Name:Hypertension Code:I10 Name:History of aortic aneurysm Code:Z86.79 Disposition: discharged CONSULT Medical Student Attestation: I, or a resident under my supervision, was present with the medical student who participated in the docu (more content not included)... Normal [facility] RENAL FUNCTION PANELon 08-12 Albumin [Mass/Vol] 4.1 g/dL Normal 3.4 - 5.0 [facility] Comment on above: Performed By: #### C BCDF #### [facility] [id number] [place] [address] Anion gap [Moles/Vol] 14 mmol/L Normal [facility] Comment on above: Performed By: #### C BCDF #### [facility] [address] [place] [address] Calcium [Mass/Vol] 8.6 mg/dL Normal 8.6 - 10.6 [facility] Comment on above: Performed By: #### C BCDF #### [facility] [address] [place] [address] Chloride [Moles/Vol] 106 mmol/L Normal 98 - 107 [facility] Comment on above: Performed By: #### C BCDF #### [facility] [id number] [place] [address] Creatinine [Mass/Vol] 1.15 mg/dL Normal 0.50 - 1.30 [facility] Comment on above: Performed By: #### C BCDF #### [place] [address] [place] [address] GFR- AM. >60 Normal >60 [facility] Comment on above: Result Comment: CALC ULATIONS OF ESTIMATED GFR ARE PERFORMED USING THE MDRD STUDY EQUATION FOR THE IDMS-TRACEABLE CREATININE METHODS. CLIN CHEM 2007;53:766-72 Performed By: #### C BCDF #### [facility] [address] [place] [address] GFR-NON AM. >60 Normal >60 [facility] Comment on above: Performed By: #### C BCDF #### [place] [address] [place] [address] Glucose [Mass/Vol] 87 mg/dL Normal 74 - 99 [facility] Comment on above: Performed By: #### C BCDF #### [facility] [address] [place] [address] HCO3 (Bld) [Moles/Vol] 25 mmol/L Normal 21 - 32 [facility] Comment on above: Performed By: #### C BCDF #### [facility] [address] [place] [address] Phosphate [Mass/Vol] 3.7 mg/dL Normal 2.5 - 4.9 [facility] Comment on above: Result Comment: The performance characteristics of phosphorus testing in heparinized plasma have been validated by the individual laboratory site where testing is performed. Testing on heparinized plasma is not approved by the FDA; however, such approval is not necessary. Performed By: #### C BCDF #### [facility] [address] [place] [address] Potassium [Moles/Vol] 4.4 mmol/L Normal 3.5 - 5.3 [facility] Comment on above: Performed By: #### C BCDF #### [facility] [address] [place] [address] Sodium [Moles/Vol] 141 mmol/L Normal 136 - 145 [facility] Comment on above: Performed By: #### C BCDF #### [facility] [address] [place] [address] Urea nitrogen [Mass/Vol] 13 mg/dL Normal 6 - 23 [facility] Comment on above: Performed By: #### C BCDF #### [facility] [address] [place] [address] Radiologyon 08-12-2021 XR Chest Single view Normal [facility] Work Phone: Renal Function Panelon 08-12 Albumin BCP dye [Mass/Vol] 4.1 g/dL 3.4 - 5.0 [facility] Work Phone: Anion gap [Moles/Vol] 14 mmol/L 10 - 20 [facility] Work Phone: Calcium [Mass/Vol] 8.6 mg/dL 8.6 - 10.6 [facility] Work Phone: Chloride [Moles/Vol] 106 mmol/L 98 - 107 [facility] Work Phone: CO2 [Moles/Vol] 25 mmol/L 21 - 32 [facility] Work Phone: Creatinine [Mass/Vol] 1.15 mg/dL See Below [facility] Work Phone: Comment on above: Reference Range: 0.5 0 - 1.30 Glucose [Mass/Vol] 87 mg/dL 74 - 99 [facility] Work Phone: Phosphate [Mass/Vol] 3.7 mg/dL 2.5 - 4.9 [facility] Work Phone: Comment on above: The performance tahira acteristics of phosphorus testing in heparinized plasma have been validated by the individual laboratory site where testing is performed. Testing on heparinized plasma is not approved by the FDA; however, such approval is not necessary. Potassium [Moles/Vol] 4.4 mmol/L 3.5 - 5.3 [facility] Work Phone: Sodium [Moles/Vol] 141 mmol/L 136 - 145 [facility] Work Phone: Urea nitrogen [Mass/Vol] 13 mg/dL 6 - 23 [facility] Work Phone: Renal Function Panel >60 >60 [facility] Work Phone: Comment on above: CALCULATIONS OF NIKOLE MATED GFR ARE PERFORMED USING THE MDRD STUDY EQUATION FOR THE IDMS-TRACEABLE CREATININE METHODS. CLIN CHEM 2007;53:766-72 Risk Screen - Adult Emergenc yon 08-12-2021 Risk Screen - Adult Emergency Preferred Language: Preferred Language: Preferred Language for Discussing Health Care (patient/designee)Fran villalta Advanced Directives: Advance Directive/DNRno Family Violence Adult: Abuse Screen: Are you or have you been threatened or abused physically, emotionally, or sexually by anyoneno Learning Assessment (Patient): Learning Assessment (Patient): Patient is Able to be Assessed for Learningyes Factors Influencing Readiness to Learnacuteness of illness Factors that Impact Ability to Learnnone Devices/Methods Used to Communicatenone Learning Preferenceswritten material; verbal instruction Cultural Considerationsnone Developmental Considerationsnone Zoroastrian Considerationsnone Learning Assessment (Other Learner): Learning Assessment (Other Learner): Other learner availableno Pressure Injury/TB/Substance: Pressure Injury: Pressure Injury Present on Admissionno Do you have a coughno Smoking Statusnever smoker Alcohol Usedaily Drug Usedenies Admission Risk Screen: Significant IndicatorsComplete CAGE: CAGE: Is this an injured patient at a Trauma Center ([facility]/[place] /[place]): no Electronic Signatures: Pavel Lopes (RN) (Signed 12-Aug-2021 21:52) Authored: Preferred Language, Advanced Directives, Family Violence Adult, Learning Assessment (Patient), Learning Assessment (Other Learner), Pressure Injury/TB/Substance, Pressure Injury, CAGE Last Updated: 12-Aug-2021 21:52 by Pavel Lopes (RN) Normal [facility] TH CHEST 1 VIEWon 08-12-2021 TH CHEST 1 VIEW Patient Name: HOSEA ALVAREZ STUDY: CHEST 1 VIEW; 08/12/2021 6:30 pm INDICATION: chest pain . COMPARISON: 07/14/2021 ACCESSION NUMBER(S): [id number] ORDERING CLINICIAN: TRICE CLARK FINDINGS: AP radiograph of the chest was provided. CARDIOMEDIASTINAL SILHOUETTE: Cardiomediastinal silhouette is normal in size and configuration. LUNGS: No focal consolidation, sizeable pleural effusion, or pneumothorax is evident. ABDOMEN: No remarkable upper abdominal findings. BONES: No acute osseous changes. IMPRESSION: 1. No evidence of acute cardiopulmonary process. Electronically signed by: AMBER VILLANUEVA MD Normal [facility] CT ANGIO CHESTon 08-12-20 CT ANGIO CHEST Patient Name: HOSEA ALVAREZ STUDY: CT ANGIO CHEST; 08/12/2021 9:29 pm INDICATION: CP, radiating to back, hx of thoracic aneurysm, Lie Flat: Yes . COMPARISON: 05/08/2021 ACCESSION NUMBER(S): [id number] ORDERING CLINICIAN: TRISTON OROZCO TECHNIQUE: Helical data acquisition of the chest was obtained before and after the administration of intravenous contrast, 90 mL Omnipaque 350. Post-contrast images were acquired in the arterial phase. Images were reformatted in axial, coronal, and sagittal planes. MIP reconstructions were performed on a separate workstation and provided for interpretation. MIP reconstructions were performed on a separate workstation and provided for interpretation. 3D reconstructions were performed on an independent workstation and provided for review. FINDINGS: LOWER NECK AND SUPERFICIAL SOFT TISSUES: Mild gynecomastia. MEDIASTINUM/LIZZETTE: No lymphadenopathy. Esophagus is unremarkable. CARDIOVASCULAR: Fusiform thoracic aortic aneurysm measuring 5 cm in maximal caliber, which is slightly increased in size when compared to the prior exam. No aortic dissection. Pulmonary artery caliber is within normal limits. The sino-tubular junction measures approximately 3.6 cm. Motion artifact slightly limits evaluation of the main . Trace pericardial fluid within physiologic limits. No pulmonary embolism is detected to the proximal segmental level. The right middle lobe segmental arteries are poorly evaluated due to motion artifact. No right middle lobar pulmonary embolism. No coronary calcifications are seen. UPPER ABDOMEN: 1.3 cm exophytic hyperdense renal lesion, likely hemorrhagic or proteinaceous cyst. Left upper pole renal cyst. Right interpolar renal cyst. Small focal right upper pole anterior parenchymal calcification. Additional renal hypodensities which are too small to characterize. LUNGS, AIRWAYS, AND PLEURA: No consolidation, pleural effusion, or pneumothorax. Minimal subsegmental atelectasis. Left upper lobe calcified granuloma. The trachea and central airways are patent. MUSCULOSKELETAL: No acute osseous abnormality or suspicious osseous lesions. Mild multilevel spinal degenerative change. IMPRESSION: 1. Thoracic aortic aneurysm measuring approximately 5 cm, slightly increased when compared to the prior exam. Precise comparison to the prior exam is limited due to differences in technique. Vascular surgery follow-up is recommended. 2. No aortic dissection. 3. No pulmonary embolism to the proximal segmental level within the bilateral upper and lower lobes. The right middle lobe segmental arteries are poorly evaluated due to motion artifact. No right middle lobar pulmonary embolism. 4. 1.3 cm exophytic hyperdense renal lesion, likely hemorrhagic or proteinaceous cyst. Electronically signed by: СВЕТЛАНА MCGOWAN, DO Normal [facility] TROPONIN Ion 08-12-2021 Troponin I.cardiac [Mass/Vol] ng/mL Normal 0.00 - 0.03 [facility] Comment on above: Result Comment: LESS THAN 0.04 NG/ML: NEGATIVE REPEAT TESTING IN THREE TO SIX HOURS IF CLINICALLY INDICATED. 0.04 - 0.5 NG/ML: CONSISTENT WITH POSSIBLE CARDIAC DAMAGE AND POSSIBLE INCREASED CLINICAL RISK. SERIAL MEASUREMENTS MAY HELP ASSESS EXTENT OF MYOCARDIAL DAMAGE. >0.5 NG/ML: CONSISTENT WITH CARDIAC DAMAGE, INCREASED CLINICAL RISK AND MYOCARDIAL INFARCTION. SERIAL MEASUREMENTS MAY HELP ASSESS EXTENT OF MYOCARDIAL DAMAGE. . Note: Troponin I testing is performed using different testing methodology at [facility] than at other [facility]. Direct result comparisons should only be made within the same method. . Biotin interference may cause falsely decreased results. Patients taking a Biotin dose of up to 5 mg/day should refrain from taking Biotin for 24 hours before sample collection. Providers may contact their laboratory for further information. Performed By: #### T ROP2 ####[id number] [address] Triage - EDon 08-12-2021 Triage - ED Chart Review: ARRIVAL INFORMATION Mode of Arrival: ambulance Agency Name: [facility] CHIEF COMPLAINT HOSEA ALVAREZ is a Male patient with a chief complaint of chest pain. Triage Date/Time: 12-Aug-2021 17:23 WILMAN: 3 Vital Signs: Temperature: 98.2F ( 36.8C) Blood Pressure: 128/81 Mean: Heart Rate: 57 Respiratory Rate: 18 Pulse Oximetry: 96% on room air, no respiratory support. Height: 5 feet 6.00 inches. 167.6 CM Weight: pounds. Calculated kg. (stated) [place] Coma Scale: Best Eye Response: (E4) spontaneous Best Motor Response: (M6) obeys commands Best Verbal Response: (V5) oriented Lynda Score: 15 Cough lasting greater than 3 weeks: no Allergies: yes Patient has homicidal thoughts: no Risk Screens Suicide Risk Screen In the Past Month: Have you wished you were or wished you could go to sleep and not wake up no In the Past Month: Have you had any actual thoughts of killing yourself no In Your Lifetime: Have you ever done anything, started to do anything, or prepared to do anything to end your life no [place] Fall Scale Screening Has the patient fallen before (or is the patient in the ED as a result of a fall) has not had a fall Does the patient have an impaired gait does not have impaired gait Is the patient cognitively impaired not cognitively impaired Interventions: Molina Fall Interventions: LOW INTERVENTIONS: *patient oriented to surroundings and call system, * patient/family falls education completed and documented, *patients fall status communicated during bedside handoff, *whiteboard updated, *mode of toileting discussed with patient, *bed in low position with brakes locked, *call light in reach, * non-skid footwear TRAVEL HISTORY Travel History Coronavirus Screening: no exposure or symptoms Travel Exposure History: NO travel to International locations in the past 30 days PAIN Pain Scale Used: SHANNON Past Medical History: Past Medical History Reviewedyes Electronic Signatures: Batsheva Gray ([place]) (Signed 12-Aug-2021 17:25) Authored: Quick Triage, Risk Screens, Pain, Travel History, Chart Review, Scores, Past Medical History Last Updated: 12-Aug-2021 17:25 by Batsheva Gray (RN) Normal [facility] Troponin I, Serumon 08-12-20 21 Troponin I.cardiac [Mass/Vol] ng/mL See Below [facility] Work Phone: Comment on above: Reference Range: 0.0 0 - 0.03LESS THAN 0.04 NG/ML: NEGATIVEREPEAT TESTING IN THREE TO SIX HOURSIF CLINICALLY INDICATED.0.04 - 0.5 NG/ML: CONSISTENT WITH POSSIBLECARDIAC DAMAGE AND POSSIBLE INCREASEDCLINICAL RISK.SERIAL MEASUREMENTS MAY HELP ASSESS EXTENT OFMYOCARDIAL DAMAGE.>0.5 NG/ML: CONSISTENT WITH CARDIAC DAMAGE,INCREASED CLINICAL RISK AND MYOCARDIALINFARCTION. SERIAL MEASUREMENTS MAY HELPASSESS EXTENT OF MYOCARDIAL DAMAGE..Note: Troponin I testing is performed using different testing methodology at [facility] than at other [facility]. Direct result comparisons should only be made within the same method.. Biotin interference may cause falsely decreased results. Patients taking a Biotin dose of up to 5 mg/day should refrain from taking Biotin for 24 hours before sample collection. Providers may contact their laboratory for further information. CBC AND DIFFERENTIALon 08-10 % AUTOMATED IMMATURE GRAN 0.3 % Normal 0.0 - 0.9 [facility] Comment on above: Result Comment: Kath ture Granulocyte Count (IG) includes promyelocytes, myelocytes and metamyelocytes but does not include bands. Percent differential counts (%) should be interpreted in the context of the absolute cell counts (cells/L). Performed By: #### C BCDF ####[facility] [place], [place] [id number] Basophils (Bld) [#/Vol] 0.02 10*3/uL Normal 0.00 - 0.10 [facility] Comment on above: Performed By: #### C BCDF ####[facility] [place], [place] [phone] Basophils/100 WBC (Bld) 0.5 % Normal 0.0 - 2.0 [facility] Comment on above: Performed By: #### C BCDF ####[facility] [place] [address], [place] [id number] Eosinophils (Bld) [#/Vol] 0.07 10*3/uL Normal 0.00 - 0.70 [facility] Comment on above: Performed By: #### C BCDF ####[address], [place] [id number] Eosinophils/100 WBC (Bld) 1.9 % Normal 0.0 - 6.0 [facility] Comment on above: Performed By: #### C BCDF ####[address], [place] [id number] Erythrocyte distribution width (RBC) [Ratio] 13.2 % Normal 11.5 - 14.5 [facility] Comment on above: Performed By: #### C BCDF ####[address], [place] [id number] Hematocrit (Bld) [Volume fraction] 36.0 % Low 41.0 - 52.0 [facility] Comment on above: Performed By: #### C BCDF ####[address], [place] [id number] Hemoglobin (Bld) [Mass/Vol] 12.4 g/dL Low 13.5 - 17.5 [facility] Comment on above: Performed By: #### C BCDF ####[address], [place] [id number] Lymphocytes (Bld) [#/Vol] 0.87 10*3/uL Low 1.20 - 4.80 [facility] Comment on above: Performed By: #### C BCDF ####[address], [place] [id number] Lymphocytes/100 WBC (Bld) 23.2 % Normal 13.0 - 44.0 [facility] Comment on above: Performed By: #### C BCDF ####[facility] [facility], [place] [phone] MCHC (RBC) [Mass/Vol] 34.4 g/dL Normal 32.0 - 36.0 [facility] Comment on above: Performed By: #### C BCDF ####[facility] [facility], [place] [phone] MCV (RBC) [Entitic vol] 83 fL Normal 80 - 100 [facility] Comment on above: Performed By: #### C BCDF ####[facility] [facility], [place] [id number] Monocytes (Bld) [#/Vol] 0.33 10*3/uL Normal 0.10 - 1.00 [facility] Comment on above: Performed By: #### C BCDF ####[place] [id number] [facility], [place] [phone] Monocytes/100 WBC (Bld) 8.8 % Normal 2.0 - 10.0 [facility] Comment on above: Performed By: #### C BCDF ####[facility] [facility], [place] [phone] Neutrophils (Bld) [#/Vol] 2.45 10*3/uL Normal 1.20 - 7.70 [facility] Comment on above: Performed By: #### C BCDF ####[facility] [facility], [place] [phone] Neutrophils/100 WBC (Bld) 65.3 % Normal 40.0 - 80.0 [facility] Comment on above: Performed By: #### C BCDF ####[facility] [facility] [place], [place] [phone] Platelets (Bld) [#/Vol] 137 10*3/uL Low 150 - 450 [facility] Comment on above: Performed By: #### C BCDF ####[facility] [facility] [place], [place] [phone] RBC 4.32 x10E12/L Low 4.50 - 5.90 [facility] Comment on above: Performed By: #### C BCDF ####[facility] [facility] [place], [place] [phone] WBC (Bld) [#/Vol] 3.8 10*3/uL Low 4.4 - 11.3 [facility] Comment on above: Performed By: #### C BCDF ####[facility] [facility] [place], [place] [phone] COMPREHENSIVE PANELon 2020 Albumin [Mass/Vol] 4.1 g/dL Normal 3.4 - 5.0 [facility] Comment on above: Performed By: #### U A #### [facility] [address] [facility] [place], [place] [phone] ALP [Catalytic activity/Vol] 48 U/L Normal 33 - 120 [facility] Comment on above: Performed By: #### U A #### [facility] [address] [facility] [place], [place] [id number] ALT [Catalytic activity/Vol] 15 U/L Normal 10 - 52 [facility] Comment on above: Result Comment: Yanni ents treated with Sulfasalazine may generate falsely decreased results for ALT. Performed By: #### U A #### [facility] [address] [facility] [place], [place] [phone] Anion gap [Moles/Vol] 12 mmol/L Normal 10 - 20 [facility] Comment on above: Performed By: #### U A #### [facility] [address] [facility] [place], [place] [phone] AST [Catalytic activity/Vol] 15 U/L Normal 9 - 39 [facility] Comment on above: Performed By: #### U A #### [facility] [address] [facility] [place], [place] [phone] Bilirubin [Mass/Vol] 0.4 mg/dL Normal 0.0 - 1.[address] [facility] Comment on above: Performed By: #### U A #### [facility] [address] [facility] [place], [place] [id number] Calcium [Mass/Vol] 8.9 mg/dL Normal 8.6 - 10.3 [facility] Comment on above: Performed By: #### U A #### [place] [id number] [facility] [place], [place] [phone] Chloride [Moles/Vol] 103 mmol/L Normal 98 - [address] [facility] Comment on above: Performed By: #### U A #### [address] [place], [place] [id number] Creatinine [Mass/Vol] 1.08 mg/dL Normal 0.50 - 1.30 [facility] Comment on above: Performed By: #### U A #### [address] [place], [place] [phone] GFR- AM. >60 Normal >60 [facility] Comment on above: Result Comment: CALC ULATIONS OF ESTIMATED GFR ARE PERFORMED USING THE MDRD STUDY EQUATION FOR THE IDMS-TRACEABLE CREATININE METHODS. CLIN CHEM 2007;53:766-72 Performed By: #### U A #### [address] [place], [place] [id number] GFR-NON AM. >60 Normal >60 [facility] Comment on above: Performed By: #### U A #### [address] [place], [place] [phone] Glucose [Mass/Vol] 119 mg/dL High 74 - 99 [facility] Comment on above: Performed By: #### U A #### [address] [place], [place] [id number] HCO3 (Bld) [Moles/Vol] 27 mmol/L Normal 21 - 32 [facility] Comment on above: Performed By: #### U A #### [address] [place], [place] [id number] Potassium [Moles/Vol] 4.1 mmol/L Normal 3.5 - 5.3 [facility] Comment on above: Performed By: #### U A #### [address] [place], [place] [id number] Protein [Mass/Vol] 6.4 g/dL Normal 6.4 - 8.2 [facility] Comment on above: Performed By: #### U A #### [facility] [address] [place], [place] [phone] Sodium [Moles/Vol] 138 mmol/L Normal 136 - 145 [facility] Comment on above: Performed By: #### U A #### [facility] [address] [place], [place] [phone] Urea nitrogen [Mass/Vol] 14 mg/dL Normal 6 - 23 [facility] Comment on above: Performed By: #### U A #### [facility] [address] [place], [place] [phone] CT ABDOMEN AND PELVIS WO CON TRASTon 08-10-2021 CT ABDOMEN AND PELVIS WO CONTRAST Patient Name: HOSEA ALVAREZ STUDY: CT ABDOMEN AND PELVIS WO CONTRAST; 08/10/2021 4:47 pm INDICATION: flank pain . COMPARISON: None ACCESSION NUMBER(S): [id number] ORDERING CLINICIAN: DEJAH LEPE TECHNIQUE: CT of the abdomen and pelvis was performed. Contiguous axial images were obtained at 3 mm slice thickness through the abdomen and pelvis. Coronal and sagittal reconstructions at 3 mm slice thickness were performed. No intravenous contrast was administered; positive oral contrast was given. FINDINGS: Please note that the evaluation of vessels, lymph nodes and organs is limited without intravenous contrast. Mild fatty infiltration liver. No radiopaque gallstones. 2 mm right anterior midpole calcification. No stone seen on the left. No hydronephrosis. Renal cysts are seen. The largest on the right measures about 1.3 cm and is hyperdense. A smaller hyperdense cyst seen on the right measures about 4 mm as well as a low-density cysts seen on the right measuring 1.2 cm the largest on the left measures 2.6 cm. No aneurysm. No stones in the urinary bladder. Mild fatty liver. Adrenal glands pancreas and spleen otherwise unremarkable. No suspicious osseous lesions. Trace diverticulosis without diverticulitis moderate retained stool in the colon normal appendix IMPRESSION: 1. Nonobstructing right renal calcification. No hydronephrosis. Bilateral renal cysts. Moderate right constipation. Normal appendix Electronically signed by: HOWARD MATTSON MD Normal [facility] CT Abdomen and Pelvis withou t Contraston 08-10-2021 CT Abdomen and Pelvis WO contrast Normal [facility] Work Phone: Complete Blood Count + Diffe rentialon 08-10-2021 Basophils/100 WBC (Bld) 0.5 % 0.0 - 2.0 [facility] Work Phone: Erythrocyte distribution width (RBC) [Ratio] 13.2 % See Below [facility] Work Phone: Comment on above: Reference Range: 11. 5 - 14.5 Hematocrit (Bld) [Volume fraction] 36.0 % below low threshold See Below [facility] Work Phone: Comment on above: Reference Range: 41. 0 - 52.0 Hemoglobin (Bld) [Mass/Vol] 12.4 g/dL below low threshold See Below [facility] Work Phone: Comment on above: Reference Range: 13. 5 - 17.5 Lymphocytes/100 WBC (Bld) 23.2 % See Below [facility] Work Phone: Comment on above: Reference Range: 13. 0 - 44.0 MCHC (RBC) [Mass/Vol] 34.4 g/dL See Below [facility] Work Phone: Comment on above: Reference Range: 32. 0 - 36.0 MCV (RBC) [Entitic vol] 83 fL 80 - 100 [facility] Work Phone: Monocytes/100 WBC (Bld) 8.8 % 2.0 - 10.0 [facility] Work Phone: Neutrophils/100 WBC (Bld) 65.3 % See Below [facility] Work Phone: Comment on above: Reference Range: 40. 0 - 80.0 Platelets (Bld) [#/Vol] 137 10*3/uL below low threshold 150 - 450 [facility] Work Phone: RBC (Bld) [#/Vol] 4.32 {x10E12/L} below low threshold See Below [facility] Work Phone: Comment on above: Reference Range: 4.5 0 - 5.90 WBC (Bld) [#/Vol] 3.8 10*3/uL below low threshold 4.4 - 11.3 [facility] Work Phone: Complete Blood Count + Differential 0.02 {x10E9/L} See Below [facility] Work Phone: Comment on above: Reference Range: 0.0 0 - 0.10 Complete Blood Count + Differential 0.07 {x10E9/L} See Below [facility] Work Phone: Comment on above: Reference Range: 0.0 0 - 0.70 Complete Blood Count + Differential 0.33 {x10E9/L} See Below [facility] Work Phone: Comment on above: Reference Range: 0.1 0 - 1.00 Complete Blood Count + Differential 0.87 {x10E9/L} below low threshold See Below [facility] Work Phone: Comment on above: Reference Range: 1.2 0 - 4.80 Complete Blood Count + Differential 2.45 {x10E9/L} See Below [facility] Work Phone: Comment on above: Reference Range: 1.2 0 - 7.70 Complete Blood Count + Differential 1.9 % 0.0 - 6.0 [facility] Work Phone: Complete Blood Count + Differential 0.3 % 0.0 - 0.9 [facility] Work Phone: Comment on above: Immature Granulocyte Count (IG) includes promyelocytes, myelocytes and metamyelocytes but does not include bands. Percent differential counts (%) should be interpreted in the context of the absolute cell counts (cells/L). Laboratory - Chemistry and C hemistry - challengeon 08-10-2021 Albumin BCP dye [Mass/Vol] 4.1 g/dL 3.4 - 5.0 [facility] [place] Work Phone: ALP [Catalytic activity/Vol] 48 U/L 33 - 120 [facility] [place] Work Phone: [phone] ALT With P-5'-P [Catalytic activity/Vol] 15 U/L 10 - 52 [facility] [place] Work Phone: [phone] Comment on above: Patients treated wit h Sulfasalazine may generate falsely decreased results for ALT. Anion gap [Moles/Vol] 12 mmol/L 10 - 20 [facility] [place] Work Phone: [phone] AST With P-5'-P [Catalytic activity/Vol] 15 U/L 9 - 39 [facility] [place] Work Phone: Bilirubin [Mass/Vol] 0.4 mg/dL 0.0 - 1.2 [facility] [place] Work Phone: [phone] Calcium [Mass/Vol] 8.9 mg/dL 8.6 - 10.3 [facility] [place] Work Phone: [phone] Chloride [Moles/Vol] 103 mmol/L 98 - 107 [facility] [place] Work Phone: [phone] CO2 [Moles/Vol] 27 mmol/L 21 - 32 [facility] [place] Work Phone: Creatinine [Mass/Vol] 1.08 mg/dL See Below [facility] [place] Work Phone: Comment on above: Reference Range: 0.5 0 - 1.30 Glucose [Mass/Vol] 119 mg/dL above high threshold 74 - 99 [facility] Work Phone: Potassium [Moles/Vol] 4.1 mmol/L 3.5 - 5.3 [facility] Work Phone: Protein [Mass/Vol] 6.4 g/dL 6.4 - 8.2 [facility] Work Phone: Sodium [Moles/Vol] 138 mmol/L 136 - 145 [facility] Work Phone: Urea nitrogen [Mass/Vol] 14 mg/dL 6 - 23 [facility] Work Phone: No Panel Informationon 08-10 >60 >60 [facility] [place] Work Phone: Comment on above: CALCULATIONS OF NIKOLE MATED GFR ARE PERFORMED USING THE MDRD STUDY EQUATION FOR THE IDMS-TRACEABLE CREATININE METHODS. CLIN CHEM 2007;53:766-72 Provider Note - ED v3on 07-24 Provider Note - ED v3 Provider Note: Chart Review: ED NOTES ED NOTES: PMH: Reviewed PSH: Reviewed Social History: Reviewed. Allergies reviewed. HPI: This is a 51-year-old male with a history of renal artery stenosis, PE, COVID-19, ascending aortic aneurysm, bipolar disorder, chest pain, CAD, daily alcohol use , homelessness, former smoker who presents today with a chief complaint of lower back pain which has been ongoing for 3 to 4 days. Patient describes a dull ache in his lower back with no associated urinary complaints, nausea, vomiting, fevers or chills. Denies any urinary symptoms or hematuria. Patient states he is concerned because he does have a history of renal artery stenosis and feels like his blood pressure has been high. Denies any headache, vision changes, chest pain shortness of breath. He has been taking all his medications. He takes daily losartan, clonidine, metoprolol, aspirin, atorvastatin. Denies any lightheadedness or dizziness. Denies any chest pain shortness of breath, cough. REVIEW OF SYSTEMS: Review of systems is otherwise negative unless stated above or in history of present illness. BACK EXAM: GEN.: Vitals noted no distress. Alert and oriented 4. CARDIO: Regular rate rhythm. No murmurs rubs or gallops LUNGS: Clear to auscultation bilaterally with good aeration and no adventitious breath sounds. No wheezes rales or rhonchi. ABDOMEN: Soft, nontender, nonsurgical throughout. Normoactive bowel sounds. No pulsatile masses or abdominal bruits to auscultation. BACK: There is mild tenderness to palpation in the midline and paraspinal planes throughout the LS. He has no focal neurological deficits or significant CVA tenderness on exam. Normal motor sensory, symmetric reflexes, strong equal peripheral pulses, and normal Babinski's bilaterally. SKIN: No rash. NEURO: No focal neurologic deficits. Normal distal reflexes. 2+ patellar reflexes bilaterally. Normal range of motion of both lower extremities with normal ambulation. Cranial nerves normal as tested from 2-12 MEDICAL DECISION MAKING: We will obtain basic labs and CT abdomen pelvis. Patient is well-appearing, nontoxic and in no acute distress. He is ambulating without any issues but no focal logical deficits. He has no abdominal pain or pulsatile mass on exam. Patient CBC shows leukopenia which is chronic for him with a white blood cell count of 3.8 which is unchanged from prior lab work. His chemistry panel revealed no electrolyte abnormalities with normal renal function. His urinalysis showed no evidence of any hematuria or urinary tract infection. CT of his abdomen pelvis shows some moderate constipation with no acute process and stable findings. Patient is not in any discomfort or pain. He will be discharged home in stable condition. Told to return with any worsening or change in symptoms. He is agreeable with this plan of care and went over all the results with the patient. I discussed the differential, results and discharge plan with the patient and/or family/friend/caregiver if present. I emphasized the importance of follow-up with the physician I referred them to in the timeframe recommended. I explained reasons for the patient to return to the Emergency Department. Additional verbal discharge instructions were also given and discussed with the patient to supplement those generated by the EMR. We also discussed medications that were prescribed (if any) including common side effects and interactions. The patient was advised to abstain from driving, operating heavy machinery or making significant decisions while taking medications such as opiates and muscle relaxers that may impair this. All questions were addressed. They understand return precautions and discharge instructions. The patient and/or family/friend/caregiver expressed understanding. CLINICAL IMPRESSION: HISTORY OF PRESENTING ILLNESS HOSEA is a 51 year old Male and was seen by me at 10-Aug-2021 15:45. Triage Information: Most recent Vital Sign Value Date Temp (F): 97.3 08-10-2021 16:23 Temp (C): 36.3 08-10-2021 16:23 Heart Rate (beats/min): 55 08-10-2021 16:23 Respirations (breaths/min): 16 08-10-2021 16:23 SpO2 (%): 100 08-10-2021 16:23 BP Systolic (mm Hg): 142 08-10-2021 16:23 BP Diastolic (mm Hg): 92 08-10-2021 16:23 PAST MEDICAL HISTORY ALLERGIES/INTOLERANCES: Allergy Allergen: Erythromycin Base Type: Drug Reaction: Unknown Allergen: caffine Type: Food Reaction: Other Allergen: Cipro Type: Drug Reaction: Unknown Intolerance Allergen: polyethylene glycol 3350 Type: Drug Reaction: GI Upset HEALTH HISTORY: Family History Name:No family history of cancer Code:Z78.9 Name:No family history of coronary artery disease Code:Z78.9 Medical History Name:Chest pain Code:R07.9 Name:Renal artery stenosis Code:I70.1 Name:Pulmonary embolism Code: (more content not included)... Normal [facility] Risk Screen - Adult Emergenc yon 08-10-2021 Risk Screen - Adult Emergency Preferred Language: Preferred Language: Preferred Language for Discussing Health Care (patient/designee)Fran villalta Advanced Directives: Advance Directive/DNRno Family Violence Adult: Abuse Screen: Are you or have you been threatened or abused physically, emotionally, or sexually by anyoneno Learning Assessment (Patient): Learning Assessment (Patient): Patient is Able to be Assessed for Learningyes Factors Influencing Readiness to Learnmotivation lacking Factors that Impact Ability to Learnnone Devices/Methods Used to Communicatenone Learning Preferencesskill demonstration; verbal instruction; written material Cultural Considerationsnone Developmental Considerationsnone Zoroastrian Considerationsnone Learning Assessment (Other Learner): Learning Assessment (Other Learner): Other learner availableno Pressure Injury/TB/Substance: Pressure Injury: Do you have a coughno Smoking Statusformer smoker Alcohol Usedaily Drug Usedenies Admission Risk Screen: Significant IndicatorsComplete CAGE: CAGE: Is this an injured patient at a Trauma Center ([facility]/[place] /[place]): no Electronic Signatures: Sherry Howe (RN) (Signed 10-Aug-2021 16:28) Authored: Preferred Language, Advanced Directives, Family Violence Adult, Learning Assessment (Patient), Learning Assessment (Other Learner), Pressure Injury/TB/Substance, Pressure Injury, CAGE Last Updated: 10-Aug-2021 16:28 by Sherry Howe (BROOK[place]NN) [facility] Triage - EDon 08-10-2021 Triage - ED Chart Review: ARRIVAL INFORMATION Mode of Arrival: ambulance Agency Name: [facility] CHIEF COMPLAINT HOSEA ALVAREZ is a Male patient with a chief complaint of back pain. Onset of the Complaint: 10-Aug-2021 16:00 Other Complaints: Pt to hallway bed 3 from home with complaint of low back pain (3/10) and high blood pressure. Triage Date/Time: 10-Aug-2021 16:00 WILMAN: 3V Pain Rating (0-10): 3 = Mild Vital Signs: Temperature: 97.3F ( 36.3C) taken temporal Blood Pressure: 142/92 Mean: Heart Rate: 55 Respiratory Rate: 16 Pulse Oximetry: 100% on room air, no respiratory support. Height: 5 feet 6.00 inches. 167.6 CM Weight: 195.3 pounds. Calculated 88.6 kg. (stated) Calculated BMI (kg/m2): 31.541 Calculated BSA (m2) 2.03 [place] Coma Scale: Best Eye Response: (E4) spontaneous Best Motor Response: (M6) obeys commands Best Verbal Response: (V5) oriented [place] Score: 15 Cough lasting greater than 3 weeks: no Allergies: yes Patient has homicidal thoughts: no Risk Screens Suicide Risk Screen In the Past Month: Have you wished you were or wished you could go to sleep and not wake up no In the Past Month: Have you had any actual thoughts of killing yourself no In Your Lifetime: Have you ever done anything, started to do anything, or prepared to do anything to end your life no [place] Fall Scale Screening Has the patient fallen before (or is the patient in the ED as a result of a fall) has not had a fall Does the patient have an impaired gait does not have impaired gait Is the patient cognitively impaired not cognitively impaired Interventions: Mol[place] Fall Interventions: LOW INTERVENTIONS: *patient oriented to surroundings and call system, * patient/family falls education completed and documented, *patients fall status communicated during bedside handoff, *whiteboard updated, *mode of toileting discussed with patient, *bed in low position with brakes locked, *call light in reach, * non-skid footwear TRAVEL HISTORY Travel History Coronavirus Screening: no exposure or symptoms Travel Exposure History: NO travel to International locations in the past 30 days PAIN Pain Scale Used: SHANNON Pain Rating (0-10): 3 = Mild Past Medical History: Past Medical History Reviewedyes Electronic Signatures: Sherry Howe (BROOKLYNN) (Signed 10-Aug-2021 16:26) Authored: Quick Triage, Risk Screens, Pain, Travel History, Chart Review, Scores, Past Medical History Last Updated: 10-Aug-2021 16:26 by Sherry Howe (RN) Normal [facility] URINALYSISon 08-10-2021 Appearance (U) CLEAR Normal CLEAR [facility] Comment on above: Performed By: #### C BCDF #### [facility] [address] [facility] [place], [place] [id number] Bilirubin Ql (U) Negative Normal NEGATIVE [facility] Comment on above: Performed By: #### C BCDF #### [facility] [address] [facility] [place], [place] [phone] Color (U) YELLOW Normal STRAW,YELLOW [facility] Comment on above: Performed By: #### C BCDF #### [facility] [address] [facility] [place], [place] [phone] Glucose Ql (U) Negative Normal NEGATIVE [facility] Comment on above: Performed By: #### C BCDF #### [facility] [address] [facility] [place], [place] [phone] Hemoglobin Ql (U) Negative Normal NEGATIVE [facility] Comment on above: Performed By: #### C BCDF #### [facility] [address] [facility] [place], [place] [phone] Ketones Ql (U) Negative Normal NEGATIVE [facility] Comment on above: Performed By: #### C BCDF #### [facility] [address] [facility] [place], [place] [phone] Leukocyte esterase Test strip Ql (U) Negative Normal NEGATIVE [facility] Comment on above: Performed By: #### C BCDF #### [facility] [address] [facility] [place], [place] [phone] Nitrite Ql (U) Negative Normal NEGATIVE [facility] Comment on above: Performed By: #### C BCDF #### [address], [place] [phone] pH (U) 5.0 [pH] Normal 5.0 - 8.0 [facility] Comment on above: Performed By: #### C BCDF #### [address], [place] [phone] Protein Ql (U) Negative Normal NEGATIVE [facility] Comment on above: Performed By: #### C BCDF #### [address], [place] [phone] Specific gravity (U) [Rel density] 1.020 Normal 1.005 - 1.035 [facility] Comment on above: Performed By: #### C BCDF #### [address], [place] [phone] Urobilinogen (U) [Mass/Vol] mg/dL Normal 0.0 - 1.9 [facility] Comment on above: Performed By: #### C BCDF #### [address], [place] [phone] Urinalysison 08-10-2021 Color (U) YELLOW See Below [facility] [facility] 1800 Work Phone: Comment on above: Reference Range: STR AW,YELLOW Glucose Ql (U) Negative NEGATIVE [facility] [facility] [address] Work Phone: Ketones Ql (U) Negative NEGATIVE [facility] [address] Work Phone: Leukocyte esterase Test strip Ql (U) Negative NEGATIVE [facility] [address] Work Phone: pH (U) 5.0 [pH] 5.0 - 8.0 [facility] [address] Work Phone: Protein (U) [Mass/Vol] Negative NEGATIVE [facility] [address] Work Phone: RBC (U) [#/Vol] Negative NEGATIVE [facility] 1800 Work Phone: Specific gravity (U) [Rel density] 1.020 1 See Below [facility] [address] Work Phone: Comment on above: Reference Range: 1.0 05 - 1.035 Urinalysis Negative NEGATIVE [facility] 1800 Work Phone: Urinalysis <2.0 0.0 - 1.9 [facility] 1800 Work Phone: Urinalysis CLEAR CLEAR [facility] [address] Work Phone: VASC LAB Arterial Duplex Ult [facility] 08-02-2021 VASC LAB Arterial Duplex Ultrasound [place] [address] and Vascular Lab Report Upper Arterial Duplex Ultrasound Patient Name: HOSEA Loyd Physician: [id number] Peyman Restrepo MD, RPVI Study Date: 08/02/2021 Referring Physician: [id number] MESSINA MRN/PID: [id number] PCP: Accession/Order#: [id number] CC Report to: Date of : 1970 Technologist: Lily Zuniga RVT Gender: M Technologist 2: Admission Status: Outpatient Location Performed: [facility] 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 Triphasic flow noted throughout. Additional Findings: Imaging AND Doppler Findings: Left PSV Waveform Radial 71 cm/s Triphasic Left Radial Diam P 2.7 mm Radial Diam M 3.1 mm Radial Diam D 2.5 mm [id number] VERONICA Juan MD Final Normal [facility] VAS LAB Arterial Duplex Ultrasound Please click on the link to view the study images Normal [facility] [facility] [address] Work Phone: VASC LAB Arterial Duplex Ultrasound [facility] [employer] 1800 Work Phone: Chart Updateon 08-01-2021 Chart Update Chart Update Received message this afternoon regarding prep for colonoscopy - Clenpiq not covered by patient's insurance. I had been unable to reach patient regarding whether he had previously gotten the Suprep that was prescribed by Meagan Baugh in April. I placed a prescription for Clenpiq on July 24. I spoke with patient this afternoon. Patient stated that he had concern that the prep had polyethylene glycol in it so he did not get the Clenpiq at that time. He stated that when he takes polyethylene glycol, it causes severe abdominal pain and leads to a very elevated blood pressure. A second prescription for Clenpiq was placed by Dr. Cage on July 29. Patient states when he got to pharmacy they said he would need prior authorization to have it covered. Patient stated he thought this would be taken care of today for colonoscopy which is scheduled for tomorrow. I explained I only received the message this afternoon and that typically prior authorization requires more time than that. Patient also mentioned he just had a big lunch. I discussed potentially having procedure with OTC prep such as bisacodyl, senna, and magnesium citrate (although with the latter he would have to make sure to stay hydrated due to his h/o renal artery stenosis). Patient stated he cannot afford at this time to purchase OTC prep. Also mentioned that his girlfriend is hospitalized due to having TIAs so he is planning to have the procedure without sedation. Will see if we can get prior authorization for Clenpiq; however, given procedure is scheduled for tomorrow patient will likely need to get rescheduled. Signatures Electronically signed by : Lynette Saldaña MD; Jul 31 2021 3:34PM EST (Author) Normal [facility] - Microbiology an d Antimicrobial susceptibilityon 07-28-2021 FLUAV RNA TATI+probe Ql (Nph) FLU A by PCR NEGATIVE (Reference Range: not available) [facility] FLUBV RNA TATI+probe Ql (Nph) FLU B by PCR NEGATIVE (Reference Range: not available) [facility] SARS-CoV-2 (COVID-19) RNA TATI+probe Ql (Unsp spec) SARS-CoV-2 by PCR NEGATIVE (NEG ) [facility] TROPONIN Ion 07-15-2021 Troponin I.cardiac [Mass/Vol] ng/mL Normal 0.00 - 0.03 [facility] Comment on above: Result Comment: LESS THAN 0.04 NG/ML: NEGATIVE REPEAT TESTING IN THREE TO SIX HOURS IF CLINICALLY INDICATED. 0.04 - 0.5 NG/ML: CONSISTENT WITH POSSIBLE CARDIAC DAMAGE AND POSSIBLE INCREASED CLINICAL RISK. SERIAL MEASUREMENTS MAY HELP ASSESS EXTENT OF MYOCARDIAL DAMAGE. >0.5 NG/ML: CONSISTENT WITH CARDIAC DAMAGE, INCREASED CLINICAL RISK AND MYOCARDIAL INFARCTION. SERIAL MEASUREMENTS MAY HELP ASSESS EXTENT OF MYOCARDIAL DAMAGE. . Note: Troponin I testing is performed using different testing methodology at [facility] than at other [facility]. Direct result comparisons should only be made within the same method. Performed By: #### T ROP2 ####[facility] [place], [place] [phone] CBC AND DIFFERENTIALon 07-14 % AUTOMATED IMMATURE GRAN 0.3 % Normal 0.0 - 0.9 [facility] Comment on above: Result Comment: Kath ture Granulocyte Count (IG) includes promyelocytes, myelocytes and metamyelocytes but does not include bands. Percent differential counts (%) should be interpreted in the context of the absolute cell counts (cells/L). Performed By: #### C BCDF ####[facility] [place], [place] [phone] Basophils (Bld) [#/Vol] 0.02 10*3/uL Normal 0.00 - 0.10 [facility] Comment on above: Performed By: #### C BCDF ####[facility] [facility] [place], [place] [phone] Basophils/100 WBC (Bld) 0.5 % Normal 0.0 - 2.0 [facility] Comment on above: Performed By: #### C BCDF ####[facility] [place] [address], [place] [phone] Eosinophils (Bld) [#/Vol] 0.08 10*3/uL Normal 0.00 - 0.70 [facility] Comment on above: Performed By: #### C BCDF ####[address], [place] [phone] Eosinophils/100 WBC (Bld) 2.2 % Normal 0.0 - 6.0 [facility] Comment on above: Performed By: #### C BCDF ####[address], [place] [id number] Erythrocyte distribution width (RBC) [Ratio] 13.0 % Normal 11.5 - 14.5 [facility] Comment on above: Performed By: #### C BCDF ####[address], [place] [phone] Hematocrit (Bld) [Volume fraction] 35.3 % Low 41.0 - 52.0 [facility] Comment on above: Performed By: #### C BCDF ####[facility] [place] [address], [place] [phone] Hemoglobin (Bld) [Mass/Vol] 12.1 g/dL Low 13.5 - 17.5 [facility] Comment on above: Performed By: #### C BCDF ####[facility] [place] [address], [place] [phone] Lymphocytes (Bld) [#/Vol] 0.88 10*3/uL Low 1.20 - 4.80 [facility] Comment on above: Performed By: #### C BCDF ####[facility] [facility] [place], [place] [phone] Lymphocytes/100 WBC (Bld) 23.8 % Normal 13.0 - 44.0 [facility] Comment on above: Performed By: #### C BCDF ####[facility] [facility] [place], [place] [phone] MCHC (RBC) [Mass/Vol] 34.3 g/dL Normal 32.0 - 36.0 [facility] Comment on above: Performed By: #### C BCDF ####[facility] [facility] [place], [place] [phone] MCV (RBC) [Entitic vol] 83 fL Normal 80 - 100 [facility] Comment on above: Performed By: #### C BCDF ####[facility] [facility] [place], [place] [id number] Monocytes (Bld) [#/Vol] 0.34 10*3/uL Normal 0.10 - 1.00 [facility] Comment on above: Performed By: #### C BCDF ####[facility] [facility] [place], [place] [phone] Monocytes/100 WBC (Bld) 9.2 % Normal 2.0 - 10.0 [facility] Comment on above: Performed By: #### C BCDF ####[facility] [facility] [place], [place] [phone] Neutrophils (Bld) [#/Vol] 2.36 10*3/uL Normal 1.20 - 7.70 [facility] Comment on above: Performed By: #### C BCDF ####[facility] [facility] [place], [place] [phone] Neutrophils/100 WBC (Bld) 64.0 % Normal 40.0 - 80.0 [facility] Comment on above: Performed By: #### C BCDF ####[facility] [facility] [place], [place] [phone] Platelets (Bld) [#/Vol] 130 10*3/uL Low 150 - 450 [facility] Comment on above: Performed By: #### C BCDF ####[facility] [facility] [place] [phone] RBC 4.26 x10E12/L Low 4.50 - 5.90 [facility] Comment on above: Performed By: #### C BCDF ####[facility] [facility] [place], [place] [phone] WBC (Bld) [#/Vol] 3.7 10*3/uL Low 4.4 - 11.3 [facility] Comment on above: Performed By: #### C BCDF ####[facility] [facility] [place] [id number] CHEST 1 VIEWon 07-14-2021 CHEST 1 VIEW Patient Name: HOSEA ALVAREZ STUDY: CHEST 1 VIEW; 07/14/2021 8:34 pm INDICATION: Chest Pain . COMPARISON: 07/10/2021 ACCESSION NUMBER(S): [id number] ORDERING CLINICIAN: SAM AQUINO FINDINGS: The cardiomediastinal silhouette and pulmonary vasculature are within normal limits. No consolidation, pleural effusion or pneumothorax. IMPRESSION: No acute cardiopulmonary process. Electronically signed by: ROBINA NIELSEN MD Normal [facility] COMPREHENSIVE PANELon 2020 Albumin [Mass/Vol] 3.9 g/dL Normal 3.4 - 5.0 [facility] Comment on above: Performed By: #### C BCDF #### [facility] [address] [facility] [place], [place] [phone] ALP [Catalytic activity/Vol] 50 U/L Normal 33 - 120 [facility] Comment on above: Performed By: #### C BCDF #### [facility] [address] [facility] [place], [place] [phone] ALT [Catalytic activity/Vol] 21 U/L Normal 10 - 52 [facility] Comment on above: Result Comment: Yanni ents treated with Sulfasalazine may generate falsely decreased results for ALT. Performed By: #### C BCDF #### [facility] [address], [place] [phone] Anion gap [Moles/Vol] 15 mmol/L Normal 10 - 20 [facility] Comment on above: Performed By: #### C BCDF #### [address], [place] [phone] AST [Catalytic activity/Vol] 16 U/L Normal 9 - 39 [facility] Comment on above: Performed By: #### C BCDF #### [address], [place] [id number] Bilirubin [Mass/Vol] 0.3 mg/dL Normal 0.0 - 1.[address] [facility] Comment on above: Performed By: #### C BCDF #### [address], [place] [id number] Calcium [Mass/Vol] 9.1 mg/dL Normal 8.6 - 10.3 [facility] Comment on above: Performed By: #### C BCDF #### [address], [place] [phone] Chloride [Moles/Vol] 102 mmol/L Normal 98 - [address] [facility] Comment on above: Performed By: #### C BCDF #### [address], [place] [id number] Creatinine [Mass/Vol] 1.03 mg/dL Normal 0.50 - 1.30 [facility] Comment on above: Performed By: #### C BCDF #### [address], [place] [phone] GFR- AM. >60 Normal >60 [facility] Comment on above: Result Comment: CALC ULATIONS OF ESTIMATED GFR ARE PERFORMED USING THE MDRD STUDY EQUATION FOR THE IDMS-TRACEABLE CREATININE METHODS. CLIN CHEM 2007;53:766-72 Performed By: #### C BCDF #### [address], [place] [id number] GFR-NON AM. >60 Normal >60 [facility] Comment on above: Performed By: #### C BCDF #### [facility] [address] [facility] [place], [place] [phone] Glucose [Mass/Vol] 102 mg/dL High 74 - 99 [facility] Comment on above: Performed By: #### C BCDF #### [facility] [address] [facility] [place], [place] [phone] HCO3 (Bld) [Moles/Vol] 25 mmol/L Normal 21 - 32 [facility] Comment on above: Performed By: #### C BCDF #### [facility] [address] [facility] [place], [place] [phone] Potassium [Moles/Vol] 3.5 mmol/L Normal 3.5 - 5.3 [facility] Comment on above: Performed By: #### C BCDF #### [facility] [address] [facility] [place], [place] [phone] Protein [Mass/Vol] 6.6 g/dL Normal 6.4 - 8.2 [facility] Comment on above: Performed By: #### C BCDF #### [facility] [address] [facility] [place], [place] [phone] Sodium [Moles/Vol] 138 mmol/L Normal 136 - 145 [facility] Comment on above: Performed By: #### C BCDF #### [facility] [address] [facility] [place], [place] [phone] Urea nitrogen [Mass/Vol] 17 mg/dL Normal 6 - 23 [facility] Comment on above: Performed By: #### C BCDF #### [facility] [address] [facility] [place], [place] [id number] Complete Blood Count + Diffe dominickon 07-14-2021 Basophils/100 WBC (Bld) 0.5 % 0.0 - 2.0 [facility] [address] Work Phone: Erythrocyte distribution width (RBC) [Ratio] 13.0 % See Below [facility] [address] Work Phone: Comment on above: Reference Range: 11. 5 - 14.5 Hematocrit (Bld) [Volume fraction] 35.3 % below low threshold See Below [facility] [address] Work Phone: Comment on above: Reference Range: 41. 0 - 52.0 Hemoglobin (Bld) [Mass/Vol] 12.1 g/dL below low threshold See Below [facility] [address] Work Phone: Comment on above: Reference Range: 13. 5 - 17.5 Lymphocytes/100 WBC (Bld) 23.8 % See Below [facility] [address] Work Phone: Comment on above: Reference Range: 13. 0 - 44.0 MCHC (RBC) [Mass/Vol] 34.3 g/dL See Below [facility] [address] Work Phone: Comment on above: Reference Range: 32. 0 - 36.0 MCV (RBC) [Entitic vol] 83 fL 80 - 100 [facility] [address] Work Phone: Monocytes/100 WBC (Bld) 9.2 % 2.0 - 10.0 [facility] [address] Work Phone: Neutrophils/100 WBC (Bld) 64.0 % See Below [facility] [address] Work Phone: Comment on above: Reference Range: 40. 0 - 80.0 Platelets (Bld) [#/Vol] 130 10*3/uL below low threshold 150 - 450 [facility] [address] Work Phone: RBC (Bld) [#/Vol] 4.26 {x10E12/L} below low threshold See Below [facility] [address] Work Phone: Comment on above: Reference Range: 4.5 0 - 5.90 WBC (Bld) [#/Vol] 3.7 10*3/uL below low threshold 4.4 - 11.3 [facility] [address] Work Phone: Complete Blood Count + Differential 0.02 {x10E9/L} See Below -[facility] [address] Work Phone: Comment on above: Reference Range: 0.0 0 - 0.10 Complete Blood Count + Differential 0.08 {x10E9/L} See Below -[facility] [address] Work Phone: Comment on above: Reference Range: 0.0 0 - 0.70 Complete Blood Count + Differential 0.34 {x10E9/L} See Below [facility] [address] Work Phone: Comment on above: Reference Range: 0.1 0 - 1.00 Complete Blood Count + Differential 0.88 {x10E9/L} below low threshold See Below -[facility] [address] Work Phone: Comment on above: Reference Range: 1.2 0 - 4.80 Complete Blood Count + Differential 2.36 {x10E9/L} See Below [facility] [address] Work Phone: Comment on above: Reference Range: 1.2 0 - 7.70 Complete Blood Count + Differential 2.2 % 0.0 - 6.0 [facility] [address] Work Phone: Complete Blood Count + Differential 0.3 % 0.0 - 0.9 [facility] [address] Work Phone: Comment on above: Immature Granulocyte Count (IG) includes promyelocytes, myelocytes and metamyelocytes but does not include bands. Percent differential counts (%) should be interpreted in the context of the absolute cell counts (cells/L). Laboratory - Chemistry and C hemistry - challengeon 07-14-2021 Albumin BCP dye [Mass/Vol] 3.9 g/dL 3.4 - 5.0 [facility] [address] Work Phone: ALP [Catalytic activity/Vol] 50 U/L 33 - 120 [facility] [address] Work Phone: ALT With P-5'-P [Catalytic activity/Vol] 21 U/L 10 - 52 [facility] [address] Work Phone: Comment on above: Patients treated wit h Sulfasalazine may generate falsely decreased results for ALT. Anion gap [Moles/Vol] 15 mmol/L 10 - 20 [facility] [address] Work Phone: [phone] AST With P-5'-P [Catalytic activity/Vol] 16 U/L 9 - 39 [facility] [address] Work Phone: Bilirubin [Mass/Vol] 0.3 mg/dL 0.0 - 1.2 [facility] [address] Work Phone: [phone] Calcium [Mass/Vol] 9.1 mg/dL 8.6 - 10.3 [facility] [address] Work Phone: [phone] Chloride [Moles/Vol] 102 mmol/L 98 - 107 [facility] [address] Work Phone: CO2 [Moles/Vol] 25 mmol/L 21 - 32 [facility] [address] Work Phone: Creatinine [Mass/Vol] 1.03 mg/dL See Below [facility] [address] Work Phone: [phone] Comment on above: Reference Range: 0.5 0 - 1.30 Glucose [Mass/Vol] 102 mg/dL above high threshold 74 - 99 [facility] [address] Work Phone: Potassium [Moles/Vol] 3.5 mmol/L 3.5 - 5.3 [facility] [address] Work Phone: Protein [Mass/Vol] 6.6 g/dL 6.4 - 8.2 [facility] [address] Work Phone: Sodium [Moles/Vol] 138 mmol/L 136 - 145 [facility] [address] Work Phone: Urea nitrogen [Mass/Vol] 17 mg/dL 6 - 23 [facility] [address] Work Phone: Anion gap [Moles/Vol] Anion Gap 13 MMOL/ L (0-19 MMOL/L) 0 - 19 MMOL/L [facility] Calcium [Mass/Vol] Calcium 9.1 MG/DL (8.5-10.4 MG/DL) 8.5 - 10.4 MG/DL S Chloride [Moles/Vol] Chloride 103 MMOL/L (97-107 MMOL/L) 97 - 107 MMOL/L S CO2 [Moles/Vol] Carbon Dioxide 24 MM OL/L (24-31 MMOL/L) 24 - 31 MMOL/L S Creatinine [Mass/Vol] Creatinine R 0.9 M G/DL (0.4-1.6 MG/DL) 0.4 - 1.6 MG/DL [facility] GFR/1.73 sq M.predicted MDRD (S/P/Bld) [Vol rate/Area] EGFR 95 mL/min/1.73 m2 (Reference Range: not available) GFR ml/min/1.73m2 Stage ----- 90 1 60-89 2 30-59 3 15-29 4 <15 5 For -Americans, multiply EGFR result by 1.210 Calculation not validated for patients under 18 years of age. Performed at [address] [address] [facility] Glucose [Mass/Vol] Glucose 94 MG/DL (65 -99 MG/DL) 65 - 99 MG/DL S Potassium [Moles/Vol] Potassium R 4.4 MM OL/L (3.4-5.1 MMOL/L) 3.4 - 5.1 MMOL/L [facility] Sodium [Moles/Vol] Sodium 140 MMOL/L (133-145 MMOL/L) 133 - 145 MMOL/L Pick a Student Troponin T.cardiac [Mass/Vol] HS Troponin T,Gen 5 6 NG/L (-<15 NG/L) Sex Specific Reference Range: Male (0-22), Female (0-14) Change(Delta) >=5 is significant Troponin Baseline and Serial elevation for significant change(delta)should be interpreted in conjunction with clinical presentation, history, signs and symptoms, ECG and biomarker concentrations. Troponin elevation can be seen in several other non-infarct conditions. Chronic troponin elevations can be detected in clinically stable patients with heart failure, cardiomyopathy, renal failure, diabetes, etc. Elevated troponin can also occur in myocarditis, heart contusion, PE, drug induced cardiotoxicity, etc. Samples should NOT be taken from patients receiving high dose biotin (> 5mg) doses until 8 hours following last biotin administration. Pick a Student Urea nitrogen [Mass/Vol] BUN 12 MG/DL (8-25 MG/DL) 8 - 25 MG/DL Pick a Student Urea nitrogen/Creatinine [Mass ratio] BUN Creatinine Ratio 13.3 RATIO (8-21 RATIO) 8 - 21 RATIO Pick a Student Laboratory - Hematology and Cell countson 07-14-2021 Basophils (Bld) [#/Vol] Abs Baso 0.02 K/UL (0.00-0.22 K/UL) 0.00 - 0.22 K/UL Pick a Student Basophils/100 WBC (Bld) Basophil 0.60 % (0-1 %) 0 - 1 % Pick a Student Differential cell count method Nom (Bld) Diff Type AUTO DIFF (Reference Range: not available) Pick a Student Eosinophils (Bld) [#/Vol] Abs Eos 0.09 K/UL (0-0.45 K/UL) 0 - 0.45 K/UL Pick a Student Eosinophils/100 WBC (Bld) Eosinophil 2.60 % (0-3 %) 0 - 3 % S Erythrocyte distribution width (RBC) [Entitic vol] RDW SD 39.3 FL (37.0-54.0 FL) 37.0 - 54.0 FL S Erythrocyte distribution width (RBC) [Ratio] RDW CV 13.0 % (11.7-15.0 %) 11.7 - 15.0 % S Hematocrit (Bld) [Volume fraction] HCT 39.3 % L (41-50 %) Low 41 - 50 % S Hemoglobin (Bld) [Mass/Vol] HGB 12.9 GM/DL L (13.5-16.5 GM/DL) Low 13.5 - 16.5 GM/DL Pick a Student Immature granulocytes (Bld) [#/Vol] Abs Imm Neut 0.02 K/UL (0.0-0.1 K/UL) 0.0 - 0.1 K/UL [facility] Lymphocytes (Bld) [#/Vol] Abs Lymph 0.84 K/UL L (1.2-3.2 K/UL) Low 1.2 - 3.2 K/UL [facility] Lymphocytes/100 WBC (Bld) Lymphocyte 23.90 % (20-40 %) 20 - 40 % [facility] MCH (RBC) [Entitic mass] MCH 27.9 PG (26-34 PG) 26 - 34 PG S MCHC (RBC) [Mass/Vol] MCHC 32.8 % (31-37 %) 31 - 37 % S MCV (RBC) [Entitic vol] MCV 84.9 FL (80-100 FL) 80 - 100 FL S Monocytes (Bld) [#/Vol] Abs Gage 0.41 K/UL (0-0.8 K/UL) 0 - 0.8 K/UL [facility] Monocytes/100 WBC (Bld) Monocyte 11.70 % H (0-8 %) High 0 - 8 % [facility] Neutrophils (Bld) [#/Vol] Abs.Neut.Calculated 2.13 K/UL (Reference Range: not available) Performed at [address] [address] [facility] Neutrophils (Bld) [#/Vol] Abs Neut 2.13 K/UL (1.8-7.7 K/UL) 1.8 - 7.7 K/UL [facility] Neutrophils.immature/ 100 WBC (Bld) Immature Neut % 0.60 % (0.0-1.0 %) 0.0 - 1.0 % [facility] Nucleated RBC/100 WBC (Bld) [Ratio] NRBCs 0 /100 WBC (0 /100 WBC) [facility] Platelet mean volume (Bld) [Entitic vol] MPV 11.4 CU (7.0-12.6 CU) 7.0 - 12.6 CU [facility] Platelets (Bld) [#/Vol] PLT 144 K/UL L (150-450 K/UL) Low 150 - 450 K/UL [facility] RBC (Bld) [#/Vol] RBC 4.63 M/UL (4.5-5 .5 M/UL) 4.5 - 5.5 M/UL [facility] Segmented neutrophils/100 WBC (Bld) Granulocyte 60.60 % (50-70 %) 50 - 70 % [facility] WBC (Bld) [#/Vol] WBC 3.5 K/UL L (4.5- 11.0 K/UL) Low 4.5 - 11.0 K/UL [facility] No Panel Informationon 10-22 -2021 >60 >60 [facility] [address] Work Phone: Comment on above: CALCULATIONS OF NIKOLE MATED GFR ARE PERFORMED USING THE MDRD STUDY EQUATION FOR THE IDMS-TRACEABLE CREATININE METHODS. CLIN CHEM 2007;53:766-72 HS Troponin T Delta 0 (0-4 ) Performed at [address] [address] 0 - 4 S Provider Note - ED v3on 06-24 Provider Note - ED v3 Provider Note: Chart Review: HISTORY OF PRESENTING ILLNESS HOSEA is a 50 year old Male and was seen by me at 14-Jul-2021 19:53. Triage Information: Most recent Vital Sign Value Date Temp (F): 98 07-14-2021 20:23 Temp (C): 36.6 07-14-2021 20:23 Heart Rate (beats/min): 71 07-14-2021 20:23 Respirations (breaths/min): 16 07-14-2021 20:23 SpO2 (%): 98 07-14-2021 20:23 BP Systolic (mm Hg): 136 07-14-2021 20:23 BP Diastolic (mm Hg): 85 07-14-2021 20:23 PAST MEDICAL HISTORY ALLERGIES/INTOLERANCES: Allergy Allergen: Erythromycin Base Type: Drug Reaction: Unknown Allergen: caffine Type: Food Reaction: Other Allergen: Cipro Type: Drug Reaction: Unknown Intolerance Allergen: polyethylene glycol 3350 Type: Drug Reaction: GI Upset HEALTH HISTORY: Family History Name:No family history of cancer Code:Z78.9 Name:No family history of coronary artery disease Code:Z78.9 Medical History Name:Chest pain Code:R07.9 Name:Renal artery stenosis Code:I70.1 Name:Pulmonary embolism Code:I26.99 Name:History of COVID-19 Code:Z86.16 Name:Ascending aortic aneurysm Code:I71.2 Name:Bipolar disorder Code:F31.9 Name:Palpitations Code:R00.2 Social History Name:Homeless Code:Z59.0 Name:Does not use illicit drugs Code:Z78.9 Name:Consumes alcohol occasionally Code:Z78.9 Name:Former smoker Code:Z87.891 OUTPATIENT MEDICATIONS: Home Medications Review Status for Reconciliation: N/A Med Status: Patient Currently Takes Medications Drug Name: losartan 50 mg oral tablet Instructions: 1 tab(s) orally once a day Drug Name: cloNIDine 0.1 mg oral tablet Instructions: 1 tab(s) orally once a day, Drug Name: metoprolol succinate 25 mg oral tablet, extended release Instructions: 1 tab(s) orally once a day Drug Name: aspirin 81 mg oral tablet, chewable Instructions: 1 tab(s) chewed once a day Drug Name: atorvastatin 40 mg oral tablet Instructions: 1 tab(s) orally once a day SIGNIFICANT EVENTS: Past Medical History Description:Hypertension (HTN) Description:Abdominal Aortic Aneurysm (AAA) Description:Heart murmur Description:Arrythmia Additional Notes: inverted T waves Description:RENAL STENOSIS Description:intestinal tumor CRITICAL CARE RESULTS: Recent Lab Results: I have reviewed these laboratory results: Complete Blood Count + Differential 14-Jul-2021 20:21:00 ResultValue White Blood Cell Count 3.7 L Red Blood Cell Count 4.26 L HGB 12.1 L HCT 35.3 L MCV 83 MCHC 34.3 PLT 130 L RDW-CV 13.0 Neutrophil % 64.0 Immature Granulocytes % 0.3 Lymphocyte % 23.8 Monocyte % 9.2 Eosinophil % 2.2 Basophil % 0.5 Neutrophil Count 2.36 Lymphocyte Count 0.88 L Monocyte Count 0.34 Eosinophil Count 0.08 Basophil Count 0.02 Comprehensive Metabolic Panel 14-Jul-2021 20:21:00 ResultValue Glucose, Serum 102 H NA 138 K 3.5 CL 102 Bicarbonate, Serum 25 Anion Gap, Serum 15 BUN 17 CREAT 1.03 GFR-Non >60 GFR- >60 Calcium, Serum 9.1 ALB 3.9 ALKP 50 T Pro 6.6 T Bili 0.3 Alanine Aminotransferase, Serum 21 Aspartate Transaminase, Serum 16 Troponin I, Serum 14-Jul-2021 20:21:00 ResultValue Troponin I, Serum <0.02 Radiology Results: I have reviewed this radiology result: Impression: No acute cardiopulmonary process. Xray Chest 1 View [Jul 14 2021 9:02PM] VITAL SIGNS: T PRBP SpO2O2(LPM) %FiO2 Method 14-Jul-2021 20:23:[id number] 98 room air, no respiratory support MDM MDM/ED COURSE: HISTORY OF PRESENT ILLNESS: This is a 50-year-old male with medical history of bipolar disorder, thoracic aortic aneurysm, hypertension, alcohol abuse, PE secondary to Covid currently not on blood thinners who presents emerged department for chief complaint of chest pain. Patient states around noon today after eating lunch she had the onset of chest pain. States is located in the left side of his chest. He states that last about 20 minutes. He states it resolved on its own. He states is moderate pain. Described as burning. Denies any associated symptoms. Is been asymptomatic ever since. He denies any exertional onset of the symptoms. He states he was at [facility] but the wait was too long therefore he came to our emergency department. He denies fevers, chills, cough, dizziness, or abdominal pain. REVIEW OF SYSTEMS: (+ = Positive) Constitutional: Fever, Chills, Anorexia, Weight Loss, Malaise Respiratory: Cough, Hemoptysis, Wheezing, Shortness of Breath Cardiac: +Chest Pain, Dyspnea on Exertion, Orthopnea, Palpitations Gastrointestinal: Nausea, Vomiting, Diarrhea, Constipation, Abdominal Pain Musculoskeletal: Decreased ROM, Pain, Swelling, Stiffness, Weakness Neurological: Dizziness, Confusion, Headache, Seizures, Syncope Genitourinary: Discharge, (more content not included)... Normal [facility] Radiologyon 07-14-2021 XR Chest Single view Normal [facility] [address] Work Phone: Risk Screen - Adult Emergenc yon 07-14-2021 Risk Screen - Adult Emergency Preferred Language: Preferred Language: Preferred Language for Discussing Health Care (patient/designee)Fran villalta Advanced Directives: Advance Directive/DNRno Family Violence Adult: Abuse Screen: Are you or have you been threatened or abused physically, emotionally, or sexually by anyoneno Learning Assessment (Patient): Learning Assessment (Patient): Patient is Able to be Assessed for Learningyes Factors Influencing Readiness to Learninterest in learning Factors that Impact Ability to Learnnone Devices/Methods Used to Communicatenone Learning Preferencesverbal instruction Cultural Considerationsnone Developmental Considerationsnone Zoroastrian Considerationsnone Learning Assessment (Other Learner): Learning Assessment (Other Learner): Other learner availableno Pressure Injury/TB/Substance: Pressure Injury: Pressure Injury Present on Admissionno Do you have a coughno Smoking Statusnever smoker Admission Risk Screen: Significant IndicatorsComplete CAGE: CAGE: Is this an injured patient at a Trauma Center ([facility]/[place] /[place]): no Electronic Signatures: Kasey Campos ([place]) (Signed 14-Jul-2021 20:25) Authored: Preferred Language, Advanced Directives, Family Violence Adult, Learning Assessment (Patient), Learning Assessment (Other Learner), Pressure Injury/TB/Substance, Pressure Injury, CAGE Last Updated: 14-Jul-2021 20:25 by Kasey Campos ([place]NN) Normal [facility] TROPONIN Ion 07-14-2021 Troponin I.cardiac [Mass/Vol] ng/mL Normal 0.00 - 0.03 [facility] Comment on above: Result Comment: LESS THAN 0.04 NG/ML: NEGATIVE REPEAT TESTING IN THREE TO SIX HOURS IF CLINICALLY INDICATED. 0.04 - 0.5 NG/ML: CONSISTENT WITH POSSIBLE CARDIAC DAMAGE AND POSSIBLE INCREASED CLINICAL RISK. SERIAL MEASUREMENTS MAY HELP ASSESS EXTENT OF MYOCARDIAL DAMAGE. >0.5 NG/ML: CONSISTENT WITH CARDIAC DAMAGE, INCREASED CLINICAL RISK AND MYOCARDIAL INFARCTION. SERIAL MEASUREMENTS MAY HELP ASSESS EXTENT OF MYOCARDIAL DAMAGE. . Note: Troponin I testing is performed using different testing methodology at [facility] than at other [facility]. Direct result comparisons should only be made within the same method. Performed By: #### T ROP2 ####[facility] [place], [place] [id number] Triage - EDon 07-14-2021 Triage - ED Chart Review: ARRIVAL INFORMATION Mode of Arrival: private vehicle CHIEF COMPLAINT HOSEA ALVAREZ is a Male patient with a chief complaint of chest pain. Onset of the Complaint: 14-Jul-2021 19:55 Triage Date/Time: 14-Jul-2021 20:23 WILMAN: 2 Pain Rating (0-10): 2 = Mild Vital Signs: Temperature: 98.0F ( 36.6C) Blood Pressure: 136/85 Mean: Heart Rate: 71 Respiratory Rate: 16 Pulse Oximetry: 98% on room air, no respiratory support. Height: 5 feet 8.00 inches. 172.7 CM Weight: 189.5 pounds. Calculated 86.0 kg. Calculated BMI (kg/m2): 28.834 Calculated BSA (m2) 2.03 Lynda Coma Scale: Best Eye Response: (E4) spontaneous Best Motor Response: (M6) obeys commands Best Verbal Response: (V5) oriented [place] Score: 15 Cough lasting greater than 3 weeks: no Allergies: yes Patient has homicidal thoughts: no Symptoms Are POSITIVE For: pain Symptoms Are Negative For: anxiety, chills, diaphoresis, dyspnea, headache, loss of consciousness, nausea, numbness, tingling and weakness Risk Screens Suicide Risk Screen In the Past Month: Have you wished you were or wished you could go to sleep and not wake up no In the Past Month: Have you had any actual thoughts of killing yourself no In Your Lifetime: Have you ever done anything, started to do anything, or prepared to do anything to end your life no Molina Fall Scale Screening Has the patient fallen before (or is the patient in the ED as a result of a fall) has not had a fall Does the patient have an impaired gait does not have impaired gait Is the patient cognitively impaired not cognitively impaired Interventions: Molina Fall Interventions: LOW INTERVENTIONS: *patient oriented to surroundings and call system, * patient/family falls education completed and documented, *patients fall status communicated during bedside handoff, *whiteboard updated, *mode of toileting discussed with patient, *bed in low position with brakes locked, *call light in reach, * non-skid footwear TRAVEL HISTORY Travel History Coronavirus Screening: no exposure or symptoms Travel Exposure History: NO travel to International locations in the past 30 days PAIN Pain Scale Used: SHANNON Pain Rating (0-10): 2 = Mild Past Medical History: Past Medical History Reviewedyes Electronic Signatures: Ema Tinoco ([place]NN) (Signed 14-Jul-2021 20:27) Authored: Quick Triage, Risk Screens, Pain, Travel History, Chart Review, Scores, Past Medical History Last Updated: 14-Jul-2021 20:27 by Ema Tinoco (RN) Normal [facility] Troponin I, Serumon 07-14-20 21 Troponin I.cardiac [Mass/Vol] ng/mL See Below [facility] [address] Work Phone: Comment on above: Reference Range: 0.0 0 - 0.03LESS THAN 0.04 NG/ML: NEGATIVEREPEAT TESTING IN THREE TO SIX HOURSIF CLINICALLY INDICATED.0.04 - 0.5 NG/ML: CONSISTENT WITH POSSIBLECARDIAC DAMAGE AND POSSIBLE INCREASEDCLINICAL RISK.SERIAL MEASUREMENTS MAY HELP ASSESS EXTENT OFMYOCARDIAL DAMAGE.>0.5 NG/ML: CONSISTENT WITH CARDIAC DAMAGE,INCREASED CLINICAL RISK AND MYOCARDIALINFARCTION. SERIAL MEASUREMENTS MAY HELPASSESS EXTENT OF MYOCARDIAL DAMAGE..Note: Troponin I testing is performed using different testing methodology at [facility] than at other [facility]. Direct result comparisons should only be made within the same method. Troponin I.cardiac [Mass/Vol] ng/mL See Below [facility] [address] Work Phone: Comment on above: Reference Range: 0.0 0 - 0.03LESS THAN 0.04 NG/ML: NEGATIVEREPEAT TESTING IN THREE TO SIX HOURSIF CLINICALLY INDICATED.0.04 - 0.5 NG/ML: CONSISTENT WITH POSSIBLECARDIAC DAMAGE AND POSSIBLE INCREASEDCLINICAL RISK.SERIAL MEASUREMENTS MAY HELP ASSESS EXTENT OFMYOCARDIAL DAMAGE.>0.5 NG/ML: CONSISTENT WITH CARDIAC DAMAGE,INCREASED CLINICAL RISK AND MYOCARDIALINFARCTION. SERIAL MEASUREMENTS MAY HELPASSESS EXTENT OF MYOCARDIAL DAMAGE..Note: Troponin I testing is performed using different testing methodology at [facility] than at other [facility]. Direct result comparisons should only be made within the same method. [facility] Troponin T.cardiac [Mass/Vol] HS Troponin T,Gen 5 6 NG/L (-<15 NG/L) LESS THAN Sex Specific Reference Range: Male (0-22), Female (0-14) Change(Delta) >=5 is significant Troponin Baseline and Serial elevation for significant change(delta)should be interpreted in conjunction with clinical presentation, history, signs and symptoms, ECG and biomarker concentrations. Troponin elevation can be seen in several other non-infarct conditions. Chronic troponin elevations can be detected in clinically stable patients with heart failure, cardiomyopathy, renal failure, diabetes, etc. Elevated troponin can also occur in myocarditis, heart contusion, PE, drug induced cardiotoxicity, etc. Samples should NOT be taken from patients receiving high dose biotin (> 5mg) doses until 8 hours following last biotin administration. [facility] Anion gap [Moles/Vol] Anion Gap 9 MMOL/L (0-19 MMOL/L) 0 - 19 MMOL/L S Calcium [Mass/Vol] Calcium 8.8 MG/DL (8.5-10.4 MG/DL) 8.5 - 10.4 MG/DL S Chloride [Moles/Vol] Chloride 102 MMOL/L (97-107 MMOL/L) 97 - 107 MMOL/L S CO2 [Moles/Vol] Carbon Dioxide 27 MM OL/L (24-31 MMOL/L) 24 - 31 MMOL/L S Creatinine [Mass/Vol] Creatinine R 1.0 M G/DL (0.4-1.6 MG/DL) 0.4 - 1.6 MG/DL S GFR/1.73 sq M.predicted MDRD (S/P/Bld) [Vol rate/Area] EGFR 84 mL/min/1.73 m2 (Reference Range: not available) GFR ml/min/1.73m2 Stage ----- 90 1 60-89 2 30-59 3 15-29 4 <15 5 For -Americans, multiply EGFR result by 1.210 Calculation not validated for patients under 18 years of age. Performed at [address] [address] [facility] Glucose [Mass/Vol] Glucose 94 MG/DL (65 -99 MG/DL) 65 - 99 MG/DL S Potassium [Moles/Vol] Potassium R 4.0 MM OL/L (3.4-5.1 MMOL/L) 3.4 - 5.1 MMOL/L S Sodium [Moles/Vol] Sodium 138 MMOL/L (133-145 MMOL/L) 133 - 145 MMOL/L Pick a Student Troponin T.cardiac [Mass/Vol] HS Troponin T,Gen 5 6 NG/L (-<15 NG/L) LESS THAN CONSISTENT WITH PREVIOUS RESULT Sex Specific Reference Range: Male (0-22), Female (0-14) Change(Delta) >=5 is significant Troponin Baseline and Serial elevation for significant change(delta)should be interpreted in conjunction with clinical presentation, history, signs and symptoms, ECG and biomarker concentrations. Troponin elevation can be seen in several other non-infarct conditions. Chronic troponin elevations can be detected in clinically stable patients with heart failure, cardiomyopathy, renal failure, diabetes, etc. Elevated troponin can also occur in myocarditis, heart contusion, PE, drug induced cardiotoxicity, etc. Samples should NOT be taken from patients receiving high dose biotin (> 5mg) doses until 8 hours following last biotin administration. [facility] Urea nitrogen [Mass/Vol] BUN 15 MG/DL (8-25 MG/DL) 8 - 25 MG/DL Pick a Student Urea nitrogen/Creatinine [Mass ratio] BUN Creatinine Ratio 15.0 RATIO (8-21 RATIO) 8 - 21 RATIO Pick a Student Laboratory - Hematology and Cell countson 07-11-2021 Basophils (Bld) [#/Vol] Abs Baso 0.01 K/UL (0.00-0.22 K/UL) 0.00 - 0.22 K/UL Pick a Student Basophils/100 WBC (Bld) Basophil 0.30 % (0-1 %) 0 - 1 % Pick a Student Differential cell count method Nom (Bld) Diff Type AUTO DIFF (Reference Range: not available) [employer] Student Eosinophils (Bld) [#/Vol] Abs Eos 0.06 K/UL (0-0.45 K/UL) 0 - 0.45 K/UL [employer] Eosinophils/100 WBC (Bld) Eosinophil 1.80 % (0-3 %) 0 - 3 % [employer] Erythrocyte distribution width (RBC) [Entitic vol] RDW SD 39.7 FL (37.0-54.0 FL) 37.0 - 54.0 FL S Erythrocyte distribution width (RBC) [Ratio] RDW CV 12.8 % (11.7-15.0 %) 11.7 - 15.0 % [facility] Hematocrit (Bld) [Volume fraction] HCT 37.4 % L (41-50 %) Low 41 - 50 % S Hemoglobin (Bld) [Mass/Vol] HGB 12.4 GM/DL L (13.5-16.5 GM/DL) Low 13.5 - 16.5 GM/DL [facility] Immature granulocytes (Bld) [#/Vol] Abs Imm Neut 0.01 K/UL (0.0-0.1 K/UL) 0.0 - 0.1 K/UL [facility] Leukocyte morphology finding Nom (Bld) WBC Morphology SMEAR REVIEWED AND FOUND CONSISTENT WITH AUTOMATED DIFFERENTIAL (Reference Range: not available) [facility] Lymphocytes (Bld) [#/Vol] Abs Lymph 0.82 K/UL L (1.2-3.2 K/UL) Low 1.2 - 3.2 K/UL [facility] Lymphocytes/100 WBC (Bld) Lymphocyte 24.80 % (20-40 %) 20 - 40 % [facility] MCH (RBC) [Entitic mass] MCH 28.4 PG (26-34 PG) 26 - 34 PG S MCHC (RBC) [Mass/Vol] MCHC 33.2 % (31-37 %) 31 - 37 % S MCV (RBC) [Entitic vol] MCV 85.6 FL (80-100 FL) 80 - 100 FL S Monocytes (Bld) [#/Vol] Abs Gage 0.36 K/UL (0-0.8 K/UL) 0 - 0.8 K/UL [facility] Monocytes/100 WBC (Bld) Monocyte 10.90 % H (0-8 %) High 0 - 8 % [facility] Neutrophils (Bld) [#/Vol] Abs.Neut.Calculated 2.04 K/UL (Reference Range: not available) Performed at [address] [address] [facility] Neutrophils (Bld) [#/Vol] Abs Neut 2.04 K/UL (1.8-7.7 K/UL) 1.8 - 7.7 K/UL [facility] Neutrophils.immature/ 100 WBC (Bld) Immature Neut % 0.30 % (0.0-1.0 %) 0.0 - 1.0 % [facility] Nucleated RBC/100 WBC (Bld) [Ratio] NRBCs 0 /100 WBC (0 /100 WBC) [facility] Platelet mean volume (Bld) [Entitic vol] MPV 11.2 CU (7.0-12.6 CU) 7.0 - 12.6 CU [facility] Platelets (Bld) [#/Vol] PLT 140 K/UL L (150-450 K/UL) SAMPLE INTEGRITY CHECKED RESULT CHECKED CONSISTENT WITH PREVIOUS RESULT Low 150 - 450 K/UL [facility] Platelets LM Ql (Bld) Platelet Estimate CONSISTENT WITH REPORTED RESULTS (Reference Range: not available) [facility] RBC (Bld) [#/Vol] RBC 4.37 M/UL L (4.5 -5.5 M/UL) Low 4.5 - 5.5 M/UL [facility] RBC morphology finding Nom (Bld) RBC Morphology CONSISTENT WITH REPORTED RESULTS (Reference Range: not available) [facility] Segmented neutrophils/100 WBC (Bld) Granulocyte 61.90 % (50-70 %) 50 - 70 % [facility] WBC (Bld) [#/Vol] WBC 3.2 K/UL L (4.5- 11.0 K/UL) Low 4.5 - 11.0 K/UL [facility] Laboratory - Microbiology an d Antimicrobial susceptibilityon 07-11-2021 FLUAV RNA TATI+probe Ql (Nph) FLU A by PCR NEGATIVE (Reference Range: not available) S FLUBV RNA TATI+probe Ql (Nph) FLU B by PCR NEGATIVE (Reference Range: not available) [facility] SARS-CoV-2 (COVID-19) RNA TATI+probe Ql (Unsp spec) SARS-CoV-2 by PCR NEGATIVE (NEG ) [facility] No Panel Informationon 07-11 HS Troponin T Delta 0 (0-4 ) Performed at [address] [address] 0 - 4 [facility] XR Chest 2 Views (PA and lat) (Reference Range: not available) *FINAL Date of Service: 07/11/2021 19:22 Adm #: [id number] Reading Dr:GALA DIA Signoff Dr: GALA DIA PROCEDURE: CHEST 2 VIEW - IXR 0020 REASON FOR EXAM: Chest Pain RESULT: CLINICAL HISTORY: Chest pain TECHNIQUE: 2 views of the chest were performed. FINDINGS: Cardiac silhouette: Normal. Mediastinum: Unremarkable. Pulmonary vascularity: Normal. Lungs: No infiltrates. Pleura: No effusion.. Bony structures: Unremarkable. IMPRESSION: No acute abnormalities. [id number] This report has been produced using speech recognition. Original Interpreting Physician: GALA DIA MD Original Transcribed by/Date: PSCB Jul 11 2021 8:18P Original Electronically Signed by/Date: GALA DIA MD Jul 11 2021 8:18P Addendum Interpreting Physician: Addendum Transcribed by/Date: NO ADDENDUM Addendum Electronically Signed by/Date: [facility] HS Troponin T Delta 0 (0-4 ) Performed at [facility] [address] [address] 0 - 4 [facility] CHEST 2 VIEW PA AND LATon CHEST 2 VIEW PA AND LAT Patient Name: HOSEA ALVAREZ STUDY: TH CHEST 2 VIEW PA AND LAT; 07/10/2021 3:28 pm INDICATION: middle back pain, hx gerd, htn, thorasic aneurysm R07.9: Chest pain M54.9: Acute back pain. COMPARISON: None. ACCESSION NUMBER(S): [id number] ORDERING CLINICIAN: REYNA RICH FINDINGS: CHEST PA, LATERAL CARDIOMEDIASTINAL SILHOUETTE: Cardiomediastinal silhouette is normal in size and configuration. Tortuosity of the descending thoracic aorta is seen. LUNGS: Lungs are clear. ABDOMEN: No remarkable upper abdominal findings. BONES: No acute osseous changes. IMPRESSION: 1. No evidence of acute cardiopulmonary process. No change from 07/04/2021. Electronically signed by: BREANA BERMUDEZ MD Normal [facility] Office Visit (Urgent Care)on 07-10-2021 Follow-up visit Diagnoses/Problems Assessed Former smoker (V15.82) (Z87.891) Chest pain (786.50) (R07.9) Acute back pain (724.5) (M54.9) Orders Acute back pain Electrocardiogram EKG; Status:Complete; Done: 10Jul2021 Perform:[facility]; Due:08Oct2021; Last Updated By:Silvina Edgar; 07/10/2021 3:05:55 PM;Ordered; Stat; For:Acute back pain; Ordered By:Reyna Rich; Acute back pain, Chest pain Xray Chest 2 View PA + Lateral; Status:Resulted - Requires Verification; Done: 10Jul2021 03:28PM Performed:[facility]; Due:08Oct2021;Ordered; Stat; For:Acute back pain, Chest pain; Ordered By:Reyna Rich; Radiologist to Determine Optimal Study : Y What are the patient's signs and symptoms? : middle back pain, hx gerd, htn, thorasic aneurysm SocHx: Former smoker Tobacco Use Screening; Status:Complete; Done: [id number] Perform:Not Applicable;Ordered; For:SocHx: Former smoker; Ordered By:Silvina Edgar; Patient Discussion/Summary Please see your primary care physician in 2-3 days. Patient with a normal unchanged EKG. Preliminary chest x-ray images reviewed by myself shows no cardiopulmonary abnormalities. No acute cardiopulmonary abnormalities on final x-ray read. May just be a musculoskeletal back pain. Can use some warm moist heat on the area or take Tylenol as needed. Patient should see his electrical software engineer Dr. Beckford tomorrow. If chest pain worsens or changes he should call ambulance or go to nearest emergency department immediately. Chief Complaint Chief Complaints Back Pain History of Present Illness HOSEA ALVAREZ presents with complaints of back pain, described as sharp. On a scale of 1 to 10, the patient rates the pain as 8. Symptoms are unchanged. Associated symptoms include no spasm, no stiffness, no fever, no night sweats, no abdominal pain, no general malaise, no arm numbness, no leg numbness, no arm weakness, no leg weakness, no urinary incontinence and no urinary retention. Patient with history of bipolar disorder, thoracic aortic aneurysm, hypertension, renal artery stenosis, alcohol abuse, pulmonary embolism presents to [facility] urgent care for 8/10 left scapular pain. Pain started about 1 hour ago. It has only been in the back. No chest pain, shortness of breath, arm, jaw or shoulder pain, vision changes, fatigue, dyspnea on exertion, headache. He went to [facility] today for evaluation but states his wait time exceeded his expectations to he left and came here to urgent care. PMHx includes he was admitted for chest pain 07-05 at [facility]. He had some increased troponin elevation and was treated as an NSTEMI and heparinized. He had a unchanged EKG compared to previous. He had a normal ejection fracture and moderate ascending aortic dilation on echo. Unchanged CT chest definining his aortic anerysm at 1.4cm as stable. It was recommended to have a cardiac cath but patient declined at that time. His troponin was trending downward and he was discharged to follow up with cardiology. Patient up has appointment with Dr. Beckford, his electrical software engineer tomorrow. Active Problems Problems Acute back pain (724.5) (M54.9) Anemia (285.9) (D64.9) Ascending aortic aneurysm (441.2) (I71.2) Bipolar 2 disorder (296.89) (F31.81) Chest pain (786.50) (R07.9) Chronic bilateral low back pain without sciatica (724.2,338.29) (M54.50,G89.29) Constipation (564.00) (K59.00) Costochondritis (733.6) (M94.0) COVID-19 (079.89) (U07.1) Esophageal spasm (530.5) (K22.4) Essential hypertension (401.9) (I10) ETOH abuse (305.00) (F10.10) GERD (gastroesophageal reflux disease) (530.81) (K21.9) Palpitations (785.1) (R00.2) Pancytopenia (284.19) (D61.818) Renal artery stenosis (440.1) (I70.1) Screening for colorectal cancer (V76.51,V76.41) (Z12.11,Z12.12) Segmental and somatic dysfunction of lumbar region (739.3) (M99.03) Social History Problems Current smoker (305.1) (F17.200) ETOH abuse (305.00) (F10.10) Former smoker (V15.82) (Z87.891) Regular alcohol consumption (V69.8) (Z78.9) Allergies Medication Caffeine Chest Pain;; Recorded By: Neil Billings; 06/28/2021 9:27:50 AM Erythromycin TABS Adverse Reaction; Gatrointestinal upset; Updated By: Meagan Baugh; 02/22/2021 3:30:50 PM polyethylene glycol 3350 Gatrointestinal upset; Recorded By: Antonia Cuenca; 02/16/2021 10:12:41 AM Current Meds Medication NameInstruction cloNIDine HCl - 0.2 MG Oral TabletTAKE 1 TABLET 3 TIMES DAILY. Lidocaine Viscous HCl - 2 % Mouth/Throat Solutiontake one teaspoon and swish and spit four times a day as needed Losartan Potassium 50 MG Oral TabletTAKE 1 TABLET DAILY. Methocarbamol 500 MG Oral TabletTAKE 1 TABLET 3 TIMES DAILY. Metoprolol Succinate ER 25 MG Oral Tablet Extended Release 24 HourTAKE 1 TABLET DAILY. Nitroglycerin 0.4 MG Sublingual Tablet SublingualPLACE 1 TABLET UNDER THE TONGUE EVERY 5 MINUTES UP TO 3 DOSES NEEDED FOR CHEST PAIN (call 911 with 3rd dose). PEG 3350-KCl-Na Bicarb-NaCl 420 GM Oral Solution (more content not included)... Normal [facility] 07-10-2021 XR Chest 2 Views Normal [facility] Work Phone: Tobacco Screening.on 021 Fall risk assessment a) No falls within the last year [facility] Work Phone: Tobacco use status [facility] b) No [facility] Work Phone: BASIC METABOLIC PANELon 06-23 ANION GAP Canceled Normal [facility] Comment on above: Order Comment: TEST TROPONIN I WAS CANCELLED, 02/27/2021 14:30 discharged. Performed By: #### T ROP2 #### [facility] [address] [place] [address] BICARBONATE Canceled Normal [facility] Comment on above: Order Comment: TEST TROPONIN I WAS CANCELLED, 02/27/2021 14:30 discharged. Performed By: #### T ROP2 #### [facility] [address] [place] [address] CALCIUM Canceled Normal [facility] Comment on above: Order Comment: TEST TROPONIN I WAS CANCELLED, 02/27/2021 14:30 discharged. Performed By: #### T ROP2 #### [facility] [address] [place] [address] CHLORIDE Canceled Normal [facility] Comment on above: Order Comment: TEST TROPONIN I WAS CANCELLED, 02/27/2021 14:30 discharged. Performed By: #### T ROP2 #### [facility] [address] [place] [address] CREATININE Canceled Normal [facility] Comment on above: Order Comment: TEST TROPONIN I WAS CANCELLED, 02/27/2021 14:30 discharged. Performed By: #### T ROP2 #### [facility] [address] [facility] [place] [address] GFR- AM. Canceled Normal [facility] Comment on above: Order Comment: TEST TROPONIN I WAS CANCELLED, 02/27/2021 14:30 discharged. Result Comment: CALC ULATIONS OF ESTIMATED GFR ARE PERFORMED USING THE MDRD STUDY EQUATION FOR THE IDMS-TRACEABLE CREATININE METHODS. CLIN CHEM 2007;53:766-72 Performed By: #### T ROP2 #### [facility] [address] [facility] [place] [address] GFR-NON AM. Canceled Normal [facility] Comment on above: Order Comment: TEST TROPONIN I WAS CANCELLED, 02/27/2021 14:30 discharged. Performed By: #### T ROP2 #### [facility] [address] [facility] [place] [address] GLUCOSE Canceled Normal [facility] Comment on above: Order Comment: TEST TROPONIN I WAS CANCELLED, 02/27/2021 14:30 discharged. Performed By: #### T ROP2 #### [facility] [address] [facility] [place] [address] POTASSIUM Canceled Normal [facility] Comment on above: Order Comment: TEST TROPONIN I WAS CANCELLED, 02/27/2021 14:30 discharged. Performed By: #### T ROP2 #### [facility] [address] [facility] [place] [address] SODIUM Canceled Normal [facility] Comment on above: Order Comment: TEST TROPONIN I WAS CANCELLED, 02/27/2021 14:30 discharged. Performed By: #### T ROP2 #### [facility] [address] [facility] [place] [address] UREA NITROGEN Canceled Normal [facility] Comment on above: Order Comment: TEST TROPONIN I WAS CANCELLED, 02/27/2021 14:30 discharged. Performed By: #### T ROP2 #### [facility] [address] [facility] [place] [address] CBCon 07-06-2021 HCT Canceled Normal [facility] Comment on above: Order Comment: TEST CBC WAS CANCELLED, 07/06/2021 02:11 Performed By: #### C BC #### [facility] [address] [place] [address] HGB Canceled Normal [facility] Comment on above: Order Comment: TEST CBC WAS CANCELLED, 07/06/2021 02:11 Performed By: #### C BC #### [facility] [address] [place] [address] MCHC Canceled Normal [facility] Comment on above: Order Comment: TEST CBC WAS CANCELLED, 07/06/2021 02:11 Performed By: #### C BC #### [facility] [address] [facility] [place] [address] MCV Canceled Normal [facility] Comment on above: Order Comment: TEST CBC WAS CANCELLED, 07/06/2021 02:11 Performed By: #### C BC #### [facility] [address] [place] [address] NUCLEATED RBC Canceled Normal [facility] Comment on above: Order Comment: TEST CBC WAS CANCELLED, 07/06/2021 02:11 Performed By: #### C BC #### [facility] [address] [facility] [place] [address] PLT Canceled Normal [facility] Comment on above: Order Comment: TEST CBC WAS CANCELLED, 07/06/2021 02:11 Performed By: #### C BC #### [facility] [address] [place] [address] RBC Canceled Normal [facility] Comment on above: Order Comment: TEST CBC WAS CANCELLED, 07/06/2021 02:11 Performed By: #### C BC #### [facility] [address] [place] [address] RDW-CV Canceled Normal [facility] Comment on above: Order Comment: TEST CBC WAS CANCELLED, 07/06/2021 02:11 Performed By: #### C BC #### [facility] [address] [place] [address] WBC Canceled Normal [facility] Comment on above: Order Comment: TEST CBC WAS CANCELLED, 07/06/2021 02:11 Performed By: #### C #### [facility] [address] [place] [address] Admission Risk Screen - Adul ton 07-05-2021 Admission Risk Screen - Adult Allergies: Allergies: Erythromycin Base: Unknown caffine: Other Cipro: Unknown Intolerances: polyethylene glycol 3350: GI Upset Patient Verification: New W ID Band Applied in my Departmentyes Patient Identity Verified Bypatient ID Band FULL Name, include Middle, spelling matches patient's ID used for verificationyes ID Band Matches Patient ID used for Verficationyes ID Band MRN Matches EMR MRNyes Travel History: COVID-19 Screening Completedno exposure or symptoms Travel or Exposure Past 30 DaysNO travel to International locations in the past 30 days Advance Directive: Advance Directive/DNRno Advance Directive Information Givenpatient/family declined [place] Fall Screen: History of falling (immediate or previous)no (0) Secondary Diagnosisyes (15) Intravenous Therapy/ Heparin/Saline Lockyes (20) Gait/Transferringnormal/ bedrest/wheelchair (0) Ambulatory Aidsnone/bedrest/nurse assist (0) Mental Statusoriented to own ability (0) Score: Low risk (<25). Moderate risk (25-44). High risk (>44).35 [place] InterventionsMODERATE INTERVENTIONS: *Low Interventions Plus: * falls risk band/sticker applied to patient, *yellow non-skid footwear, *instruct to call for assistance before getting out of bed, *bed/chair/bedside commode/toilet alarms, *sensory devices/ambulatory aides available and in reach, *medications reviewed for potential side effects and care planning. Family Violence Screen: Are you or have you been threatened or abused physically, emotionally, or sexually by anyoneno Do you feel UNSAFE going back to the place where you are livingno Clinical assessment: Are there any apparent signs of injuries/behaviors that could be related to abuse/neglectno Social Service Consult for abuse/neglect needed this visitno Functional Screen: Functional Screen: In the recent/past 2-4 weeks, patient or family have noticedno issues that require a speech/language consult at this time AM-PAC- Basic Mobility/Daily Activity: Patient baseline bedboundno Turning from your back to your side while in a flat bed without using bedrailsnone Moving from lying on your back to sitting on the side of a flat bed without using bedrailsnone Moving to and from bed to chair (including a wheelchair)none Standing up from a chair using your arms (e.g. wheelchair or bedside chair) none To walk in hospital roomnone Climbing 3-5 steps with railingnone Basic Mobility - Total Score24 Putting on and taking off regular lower body clothingnone Bathing (including washing, rinsing, drying)none Putting on and taking off regular upper body clothingnone Toileting, which includes using toilet, bedpan or urinalnone Taking care of personal grooming such as brushing teethnone Eating Mealsnone Daily Activity - Total Score24 Learning Assessment (Patient): Patient is Able to be Assessed for Learningyes Factors Influencing Readiness to Learnacuteness of illness Factors that Impact Ability to Learnnone Devices/Methods Used to Communicateglasses Learning Preferencesverbal instruction Cultural Considerationsnone Developmental Considerationsnone Zoroastrian Considerationsreligious considerations [facility] Learning Assessment (Other Learner): Other learner availableno Depression Screen: During the past month, have you often been bothered by feeling down, depressed or hopelessno During the past month, have you often had little interest or pleasure in doing thingsno Have you had any thoughts of harming anyone elseno [place] Suicide: Risk Screen Not Applicable/Able to Answerable to be screened In the Past Month: Have you wished you were or could go to sleep and not wake upno In the Past Month: Have you had any actual thoughts of killing yourselfno Lifetime: Have you ever done, started to do, or prepared to do anything to end your lifeno [place] Suicide Risknegative Adult Nutrition Screen: Have you recently lost weight without tryingno Have you been eating poorly because of a decreased appetiteno Malnutrition Screening Tool Score0 Malnutrition Screening Tool RiskMST = 0 or 1 Not at risk. Eating well with little or no weight loss Nutrition Consult needed this visitno Can Patient Participate in Room Serviceyes Patient requires Paper Dishes/Plastic Utensilsno Pain Screen: Pain Scalenumerical 0-10 Pain Scale Educationteaching provided Current Pain Level0 = None Acceptable Pain Level9 = Severe Expression of Pain (nonverbal)verbalization Chronic Painno Spiritual Screen: Are there any cultural, spiritual, yazidi practices/values/needs that are important for us to knowno CAGE: Is this an injured patient at a Trauma Center ([facility]/[place] /[place]): no Vaccinations: Vaccination - Influenza Vaccination Screen: Is it flu season (between and December 21)Yes Screening for identified contraindications to (more content not included)... Normal [facility] BASIC METABOLIC PANELon 06-23 Anion gap [Moles/Vol] 12 mmol/L Normal - [facility] Comment on above: Performed By: #### T ROP2 #### [facility] [address] [place] [address] Calcium [Mass/Vol] 9.0 mg/dL Normal 8.6 - 10.3 [facility] Comment on above: Performed By: #### T ROP2 #### [facility] [address] [place] [address] Chloride [Moles/Vol] 102 mmol/L Normal 98 - 107 [facility] Comment on above: Performed By: #### T ROP2 #### [facility] [address] [place] [address] Creatinine [Mass/Vol] 0.93 mg/dL Normal 0.50 - 1.30 [facility] Comment on above: Performed By: #### T ROP2 #### [facility] [address] [place] [address] GFR- AM. >60 Normal >60 [facility] Comment on above: Result Comment: CALC ULATIONS OF ESTIMATED GFR ARE PERFORMED USING THE MDRD STUDY EQUATION FOR THE IDMS-TRACEABLE CREATININE METHODS. CLIN CHEM 2007;53:766-72 Performed By: #### T ROP2 #### [facility] [address] [place] [address] GFR-NON AM. >60 Normal >60 [facility] Comment on above: Performed By: #### T ROP2 #### [facility] [address] [place] [address] Glucose [Mass/Vol] 109 mg/dL High 74 - 99 [facility] Comment on above: Performed By: #### T ROP2 #### [facility] [address] [place] [address] HCO3 (Bld) [Moles/Vol] 27 mmol/L Normal 21 - 32 [facility] Comment on above: Performed By: #### T ROP2 #### [facility] [address] [place] [address] Potassium [Moles/Vol] 4.1 mmol/L Normal 3.5 - 5.3 [facility] Comment on above: Performed By: #### T ROP2 #### [facility] [address] [place] [address] Sodium [Moles/Vol] 137 mmol/L Normal 136 - 145 [facility] Comment on above: Performed By: #### T ROP2 #### [facility] [address] [place] [address] Urea nitrogen [Mass/Vol] 17 mg/dL Normal 6 - 23 [facility] Comment on above: Performed By: #### T ROP2 #### [facility] [address] [facility] [place] [address] CBCon 07-05-2021 Erythrocyte distribution width (RBC) [Ratio] 12.9 % Normal 11.5 - 14.5 [facility] Comment on above: Performed By: #### C BC #### [facility] [address] [place] [address] Hematocrit (Bld) [Volume fraction] 41.1 % Normal 41.0 - 52.0 [facility] Comment on above: Performed By: #### C BC #### [facility] [address] [facility] [place] [address] Hemoglobin (Bld) [Mass/Vol] 13.3 g/dL Low 13.5 - 17.5 [facility] Comment on above: Performed By: #### C BC #### [facility] [address] [place] [address] MCHC (RBC) [Mass/Vol] 32.4 g/dL Normal 32.0 - 36.0 [facility] Comment on above: Performed By: #### C BC #### [facility] [address] [place] [address] MCV (RBC) [Entitic vol] 87 fL Normal 80 - 100 [facility] Comment on above: Performed By: #### C BC #### [facility] [address] [place] [address] Platelets (Bld) [#/Vol] 137 10*3/uL Low 150 - 450 [facility] Comment on above: Performed By: #### C BC #### [facility] [address] [place] [address] RBC 4.74 x10E12/L Normal 4.50 - 5.90 [facility] Comment on above: Performed By: #### C BC #### [facility] [address] [place] [address] WBC (Bld) [#/Vol] 3.0 10*3/uL Low 4.4 - 11.3 [facility] Comment on above: Performed By: #### C BC #### [facility] [address] [place] [address] Consult-Cardiologyon 021 Consult-Cardiology Service: Service: Cardiology Consult: Consult requested by (Attending Name): Elgin Lambert Reason: elevated troponin History of Present Illness: Admission Reason: Atypical chest pain, palpitations HPI: HOSEA ALVAREZ is a 50 year old Male from home presenting with atypical chest pain and palpitations. Patient talks quickly in conversation and reports multiple descriptions of presenting symptoms. He initially states, I drank too much heavy liquor yesterday and then had palpiations. He states he went to the fire department for palpitations and they couldn't find anything, so he went to the ER. Patient then stated he was home and developed a chest pain that radiated to his right arm at rest, lying flat that he believes was related to eating chicken parmesan as well as d/t constipation, and states he presented to the ER for these symptoms. Troponin negative, 0.70, 0.10. ECG reviewed for NSR with early repolarization in I and aVL, TWI in III and aVF which is unchanged from prior ECGs. Denies chest pain or palpitations currently. His mode of transportation is mostly via bicycle-- states he frequently will ride >100miles in a weekend without symptoms of chest pain/pressure. Has been evaluated by many Cardiologists in this area as well as in [facility] where he has family as well. Has been evaluated multiple times in multiple ERs for symptoms as well. Reports he had a stress test in October or November 2020 that was said to be negative per patient. Was advised to have a stress cardiac MRI within the system-- did a portion of the test, but declined to have pharmacological agent injected, so test was aborted. Has never had a cardiac catheterization. Takes clonidine at least daily-- mostly to avoid withdrawal symptoms, but otherwise is noncompliant with medications. Has a h/o left renal artery stenosis 70-90% and advised to have intervention, but has not at this time, however, states he is supposed to have invention done next week with Dr. Lott at [facility]. Has been dismissed from other Cardiology practice d/t noncompliance, refusal to complete testing/noncompliant with medications as well as profane behavior toward staff/other patients in the waiting room. Also states he has an appointment with a electrical software engineer at [facility] (Dr. Mojica) as a new patient next Saturday. Past Medical History: Ascending aortic aneurysm 4.4cm Left renal artery stenosis 70-90% COVID 07/2021 PE during COVID on apixaban-- no longer taking Bipolar disorder PTSD Past Surgical History: Denies Review Family/Social History and ROS: Family History: No family history of coronary artery disease: No family history of cancer: Family History: Family History: reviewed and not pertinent to presenting problem Social History: Smoking Status: occasional user (use that is infrequent, sporadic, not on a daily basis) (1) Alcohol Use: occasionally(1) Drug Use: denies (1) Drug 2 Use: denies (1) Occupation: unemployed Social History: Single Constitutional: NEGATIVE: Fever, Chills, Anorexia, Weight Loss, Malaise Eyes: NEGATIVE: Blurry Vision, Drainage, Diploplia, Redness, Vision Loss/ Change ENMT: NEGATIVE: Nasal Discharge, Nasal Congestion, Ear Pain, Mouth Pain, Throat Pain Respiratory: NEGATIVE: Dry Cough, Productive Cough, Hemoptysis, Wheezing, Shortness of Breath Cardiac: NEGATIVE: Chest Pain, Dyspnea on Exertion, Orthopnea, Palpitations, Syncope Gastrointestinal: NEGATIVE: Nausea, Vomiting, Diarrhea, Constipation, Abdominal Pain Genitourinary: NEGATIVE: Discharge, Dysuria, Flank Pain, Frequency, Hematuria Musculoskeletal: NEGATIVE: Decreased ROM, Pain, Swelling, Stiffness, Weakness Neurological: NEGATIVE: Dizziness, Confusion, Headache, Seizures, Syncope Psychiatric: NEGATIVE: Mood Changes, Anxiety, Hallucinations, Sleep Changes, Suicidal Ideas Skin: NEGATIVE: Mass, Pain, Pruritus, Rash, Ulcer Allergies: Erythromycin Base: Unknown caffine: Other Cipro: Unknown Intolerances: polyethylene glycol 3350: GI Upset Objective: Objective Information: T PRBPSpO2 [id number]/8695% Date/Time07/05 5: 5: 5: 8: 5:16 Range(36.6C - 36.7C ) (57 - 67 ) (16 - 16 ) (124 - 137 )/ (73 - 86 ) (94% - 95% ) Physical Exam by System: Constitutional: alert and awake, sitting up in bed, no distress Head/Neck: no JVD with HOB upright at 90 Respiratory/Thorax: Bilateral lung cruz clear to auscultate posteriorly, no wheezing, rhonchi, or rales. Cardiovascular: +S1/S2, no murmur, regular rate/rhythm Gastrointestinal: non-distended, non-tender to palpate, +BS Extremities: no edema x4 extremities, 2+DP/PT Neurological: A&O x3 Psychological: Appropriate mood and behavior Skin: warm and dry Medications: Medications: Home meds: losartan 50 mg oral tablet: 1 tab(s) orally once a day (more content not included)... Normal [facility] Discharge Planning [id number] 1 Discharge Planning Note2 Discharge Planning: Needs Prior to Discharge (ex. Home Care Orders, IV/O2 prescriptions) none Discharge Barriersmedical Planned Dispositionhome Discharge Destinationhome Discharge Transportation Needed from [facility] Anticipated Discharge [id number] Discharge Planning 07/05/21 1227: Transitional Care Coordinating Note: Patient plan is to d/c home today, trying to get patient a shuttle and they will not schedule since they can not find their address. Lyft tried to be arranged and only options are patient pay or hospital pay. Reached out to management for asisstance. Plan is for patient to d/c home today. Will continue to follow. Chirstine Carpio RN-TCC Assessment: Discharge Planning Assessment [id number] Discharge Planning Assessment Completed byChristine Carpio RN-TCC Lives Withalone(1) Living Arrangementsapartment(1) Stated Reason for Admissionchest pressure (1) [place]rived [place] (1) PCPDr. Viral Amado Resource/Environmental Concernsnone(1) Anticipated Transition [place](1) Services Anticipated at Transitionnon(1) [place] Anticipated Discharge Facility/Level of Care NeedsHome Medication Adherence/Afford/Obtainy es Electronic Signatures: Christine Carpio (RN) (Signed 05-Jul-2021 12:32) Authored: Discharge Planning, Assessment Last Updated: 05-Jul-2021 12:32 by Christine Carpio (RN) References: 1. Data Referenced From Patient Profile - Adult v2 05-Jul-2021 01:53 Normal [facility] Discharge [id number] Discharge Profile2 Discharge Orders: DNAR: DNAR Status: none Provider FINAL REVIEW of Orders: Final Review: Final Review of Medication Reconciliation and Orders Completedby Physician Reviewing ProviderElgin Lambert DO at 05-Jul-2021 11:33:41 Other Clinician Instructions: Other Instructions: Other Clinician InstructionsPlease talk with your electrical software engineer to discuss further workup Electronic Signatures: Elgin Lambert () (Signed 05-Jul-2021 11:33) Authored: Discharge Orders, Provider FINAL REVIEW of Orders, Other Clinician Instructions, Gold Form - Travel Ticketing Reviewer Summary Last Updated: 05-Jul-2021 11:33 by Elgin Lambert () Normal [facility] Echocardiogramon 07-05-2021 Echocardiography [facility], [address] [place] [address] and TRANSTHORACIC ECHOCARDIOGRAM REPORT Patient Name: HOSEA Loyd Physician: [id number] Josh Ortega MD Study Date: 07/05/2021 Referring Physician: Ana M Calhoun MRN/PID: [id number] PCP: Accession/Order#: [id number] Department Location: [facility] Non Invasive Date of : 1970 Fellow: Gender: M Nurse: Admit Date: 07/05/2021 Esl Tutor: Barbara Marie [facility] Admission Status: Inpatient - Additional Staff: Routine Height: 165.10 cm CC Report to: 1 [facility] Weight: 86.18 kg Study Type: Echocardiogram BSA: 1.94 m2 Blood Pressure: 137 /86 mmHg Diagnosis/ICD: R07.9-Chest pain, unspecified; R79.89-Elevated Troponin Indication: Chest Pain, Elevated troponin Procedure/CPT: Echo Complete w Full Doppler-[id number] Patient History: Pertinent History: Chest Pain. Elevated troponin .71. Study Detail: The following Echo studies were performed: 2D, M-Mode, Doppler and color flow. The patient was awake. Critical Event Critical Event: Test was completed as per department protocol. Critical Finding: Dilated Aorta, Ao sinus 4.0, Asc Ao 4.7. Time Test was Completed: 11:30:00 PM Notified: Dr. Ortega (bedside during echo). Attending notification time: 11:30:00 PM PHYSICIAN INTERPRETATION: Left Ventricle: The left ventricular systolic function is normal, with an estimated ejection fraction of 55-60%. There are no regional wall motion abnormalities. The left ventricular cavity size is normal. Spectral Doppler shows an impaired relaxation pattern of left ventricular diastolic filling. Left Atrium: The left atrium is normal in size. Right Ventricle: The right ventricle is normal in size. There is normal right ventricular global systolic function. Right Atrium: The right atrium is normal in size. Aortic Valve: The aortic valve is trileaflet. There is mild aortic valve regurgitation. The peak instantaneous gradient of the aortic valve is 8.9 mmHg. The mean gradient of the aortic valve is 5.0 mmHg. Mitral Valve: The mitral valve is normal in structure. There is mild mitral valve regurgitation. Tricuspid Valve: The tricuspid valve is structurally normal. There is mild tricuspid regurgitation. Pulmonic Valve: The pulmonic valve is structurally normal. There is mild pulmonic valve regurgitation. Pericardium: There is no pericardial effusion noted. Aorta: The aortic root is abnormal. There is moderate dilatation of the ascending aorta. There is mild dilatation of the aortic root. Pulmonary Artery: The tricuspid regurgitant velocity is 2.52 m/s, and with an estimated right atrial pressure of 10 mmHg, the estimated pulmonary artery pressure is borderline elevated with the RVSP at 35.4 mmHg. Systemic Veins: The inferior vena cava appears to be of normal size. CONCLUSIONS: 1. The left ventricular systolic function is normal with a 55-60% estimated ejection fraction. 2. Spectral Doppler shows an impaired relaxation pattern of left ventricular diastolic filling. 3. There is mild aortic valve regurgitation. 4. There is moderate dilatation of the ascending aorta. There is mild dilatation of the aortic root. 5. There is mild mitral, tricuspid and pulmonic regurgitation. QUANTITATIVE DATA SUMMARY: 2D MEASUREMENTS: Normal Ranges: Ao Root d: 4.00 cm (2.0-3.7cm) IVSd: 1.03 cm (0.6-1.1cm) LVPWd: 1.30 cm (0.6-1.1cm) LVIDd: 5.18 cm (3.9-5.9cm) LVIDs: 3.13 cm LV Mass Index: 122.6 g/m2 LV % FS 39.6 % LA VOLUME: Normal Ranges: LA Vol A4C: 38.8 ml (22+/-6mL/m2) LA Vol A2C: 41.3 ml LA Vol BP: 41.0 ml LA Vol Index A4C: 20.0ml/m2 LA Vol Index A2C: 21.3 ml/m2 LA Vol Index BP: 21.2 ml/m2 LA Area A4C: 15.8 cm2 LA Area A2C: 16.7 cm2 LA Major [place] A4C: 5.5 cm LA Major [place] A2C: 5.7 cm LA Volume Index: 19.6 ml/m2 LA Vol A4C: 36.0 ml LA Vol A2C: 39.0 ml RA VOLUME BY A/L METHOD: Normal Ranges: RA Area A4C: 15.8 cm2 M-MODE MEASUREMENTS: Normal Ranges: Ao Root: 4.00 cm (2.0-3.7cm) LAs: 2.50 cm (2.7-4.0cm) AORTA MEASUREMENTS: Normal Ranges: Ao Sinus, d: 4.00 cm (2.1-3.5cm) Asc Ao, d: 4.70 cm (2.1-3.4cm) LV SYSTOLIC FUNCTION BY 2D PLANIMETRY (MOD): Normal Ranges: EF-A4C View: 55.7 % (>55%) EF-A2C View: 58.3 % EF-Biplane: 57.6 % LV DIASTOLIC FUNCTION: Normal Ranges: MV Peak E: 0.76 m/s (0.7-1.2 m/s) MV Peak A: 0.66 m/s (0.42-0.7 m/s) E/A Ratio: 1.15 (1.0-2.2) MV e' 0.10 m/s (>8.0) MV lateral e' 0.10 m/s MV medial e' 0.07 m/s MV A Dur: 140.00 msec E/e' Ratio: 7.64 (<8.0) PulmV Sys Jonathan: 39.30 cm/s PulmV Brizuela Jonathan: 28.90 cm/s PulmV S/D Jonathan: 1.40 PulmV A Revs Jonathan: 22.00 cm/s PulmV A Revs Dur: 119.00 msec MITRAL VALVE: Normal Ranges: MV DT: 217 msec (150-240msec) AORTIC VALVE: Normal Ranges: AoV Vmax: 1.49 m/s (<1.7m/s) AoV Peak P.9 mmHg (<20mmHg) AoV Mean P.0 mmHg (1.7-11.5mmHg) LVOT Max Jonathan: 1.08 m/s (<1.1m/s) AoV VTI: 29.80 cm (18-2 (more content not included)... Normal [facility] Laboratory - Chemistry and C hemistry - challengeon 07-05-2021 Anion gap [Moles/Vol] 12 mmol/L 10 - 20 [facility] [address] Work Phone: Calcium [Mass/Vol] 9.0 mg/dL 8.6 - 10.3 [facility] [address] Work Phone: Chloride [Moles/Vol] 102 mmol/L 98 - 107 [facility] [address] Work Phone: CO2 [Moles/Vol] 27 mmol/L 21 - 32 [facility] [address] Work Phone: Creatinine [Mass/Vol] 0.93 mg/dL See Below [facility] [address] Work Phone: Comment on above: Reference Range: 0.5 0 - 1.30 Glucose [Mass/Vol] 109 mg/dL above high threshold 74 - 99 [facility] [address] Work Phone: Potassium [Moles/Vol] 4.1 mmol/L 3.5 - 5.3 [facility] [address] Work Phone: Sodium [Moles/Vol] 137 mmol/L 136 - 145 [facility] [address] Work Phone: Urea nitrogen [Mass/Vol] 17 mg/dL 6 - 23 [facility] [address] Work Phone: Laboratory - Hematology and Cell countson 07-05-2021 Erythrocyte distribution width (RBC) [Ratio] 12.9 % See Below [facility] [address] Work Phone: Comment on above: Reference Range: 11. 5 - 14.5 Hematocrit (Bld) [Volume fraction] 41.1 % See Below [facility] [address] Work Phone: Comment on above: Reference Range: 41. 0 - 52.0 Hemoglobin (Bld) [Mass/Vol] 13.3 g/dL below low threshold See Below [facility] [address] Work Phone: Comment on above: Reference Range: 13. 5 - 17.5 MCHC (RBC) [Mass/Vol] 32.4 g/dL See Below [facility] [address] Work Phone: Comment on above: Reference Range: 32. 0 - 36.0 MCV (RBC) [Entitic vol] 87 fL 80 - 100 [facility] [address] Work Phone: Platelets (Bld) [#/Vol] 137 10*3/uL below low threshold 150 - 450 [facility] [address] Work Phone: RBC (Bld) [#/Vol] 4.74 {x10E12/L} See Below [facility] [address] Work Phone: Comment on above: Reference Range: 4.5 0 - 5.90 WBC (Bld) [#/Vol] 3.0 10*3/uL below low threshold 4.4 - 11.3 [facility] [address] Work Phone: No Panel Informationon 07-05 >60 >60 [facility] [address] Work Phone: Comment on above: CALCULATIONS OF NIKOLE MATED GFR ARE PERFORMED USING THE MDRD STUDY EQUATION FOR THE IDMS-TRACEABLE CREATININE METHODS. CLIN CHEM 2007;53:766-72 Order Reconciliationon 07-05 Order Reconciliation Page 1 Discharge Reconciliation Document Reconciliation Type: Discharge requested on behalf of Elgin Lambert (Physician) done by Elgin Lambert (DO) Discharge - Reconciliation: 05-Jul-2021 11:32 by: Elgin Lambert (DO) Home Medications EnteredHOME MEDICATIONS AT DISCHARGE DateReconciliation Comment/ Additional Information cloNIDine 0.1 mg oral tablet 1 tab(s) orally once a day, 07-Jun-2021 14:07 cloNIDine 0.1 mg oral tablet 1 tab(s) orally once a day, 07-Jun-2021 14:07 cloNIDine 0.1 mg oral tablet is continued as cloNIDine 0.1 mg oral tablet losartan 50 mg oral tablet 1 tab(s) orally once a day 13-Feb-2021 10:31 losartan 50 mg oral tablet 1 tab(s) orally once a day 13-Feb-2021 10:31 losartan 50 mg oral tablet is continued as losartan 50 mg oral tablet metoprolol succinate 25 mg oral tablet, extended release 1 tab(s) orally once a day 07-Jun-2021 14:08 metoprolol succinate 25 mg oral tablet, extended release 1 tab(s) orally once a day 07-Jun-2021 14:08 metoprolol succinate 25 mg oral tablet, extended release is continued as metoprolol succinate 25 mg oral tablet, extended release Current OrdersDateHOME MEDICATIONS AT DISCHARGE DateReconciliation Comment/ Additional Information cloNIDine (CATAPRES) TabletDOSE = 0.1 mg Oral Daily 05-Jul-2021 10:35 cloNIDine (CATAPRES) is not required Heparin (Repeat Bolus) Injectable (Low Intensity - ACS, Stroke) IntraVenous Push Every 4 HoursRepeat Bolus Doses:If Heparin Assay is LESS than 0.1 Repeat Bolus of 4000 units.If Heparin Assay is between 0.1 and 0.2 Repeat Bolus of 2000 units. 05-Jul-2021 08:31 Heparin (Repeat Bolus) Injectable is not required Heparin 25,000 units/ D5W 250 mL Infusion Solution (Low Intensity - ACS, Stroke)IntraVenous Admin Rate = 10 mL/hr DOSE Rate = 1,000 units/hrInfusion Rate Adjustments: If Heparin Assay is LESS than 0.1 INCREASE Infusion Rate by 05-Jul-2021 08:31 Heparin 25,000 units/ D5W 250 mL Infusion is not required Losartan Tablet (COZAAR)DOSE = 50 mg Oral Daily 05-Jul-2021 10:35 Losartan is not required Melatonin TabletDOSE = 3 mg Oral At Bedtime, PRN Insomnia 05-Jul-2021 08:19 Melatonin is not required Metoprolol Succinate Extended Release Tablet, Extended Release (TOPROL-XL)DOSE = 25 mg Oral Daily 05-Jul-2021 10:35 Metoprolol Succinate Extended Release is not required Perflutren Lipid Microsphere (Activated) 1.3 mL / NaCL 0.9% T.V. 10 mL Injectable DOSE = 0.5 mL IntraVenous Push OnceCa.699088 mL/Kg/DOSE x 86.4 Kg = 0.5 mL/Dose (Daily Total is 0.5 mL)Clinician Notes: 1. Dilute 1.3 mL of activated DEFINITY 05-Jul-2021 08:56 Perflutren Lipid Microsphere (Activated) 1.3 mL / NaCL 0.9% T.V. 10 mL Injectable is not required Home Medications Added During Discharge Reconciliation Discharge Discharge Diagnosis< R77.8 Elevated troponin level Discharge Provider, Elgin Lambert Discharge Disposition : .Home Condition at Discharge: Satisfactory Discharge Communication Instructions for Nursing Only: Remove IV prior to discharge from hospital. Do not remove any midline, if present, without an order from the provider. Discharge Instructions - PHR After your discharge from the hospital, two Summary of Care Documents will be available online in your Personal Health Record (PHR). 1.Consolidated-Clinical Document Architecture (C-CDA) Patient Discharge Summary This document is a summary of your hospital stay to be kept for your reference.2.C-CDA Visit Summary This document is a summary of your hospital stay to be shared with your follow-up providers (doctor, monitor technician, physical therapist, etc.). Guidelines for a Healthy Lifestyle All Active Home Medications at time of Discharge Reconciliation: 05-Jul-2021 11:32 cloNIDine 0.1 mg oral tablet 1 tab(s) orally once a day, Discharge Discharge Diagnosis< R77.8 Elevated troponin level Discharge Provider, Elgin Lambert Discharge Disposition : .Home Condition at Discharge: Satisfactory Discharge Communication Instructions for Nursing Only: Remove IV prior to discharge from hospital. Do not remove any midline, if present, without an order from the provider. Discharge Instructions - PHR After your discharge from the hospital, two Summary of Care Documents will be available online in your Personal Health Record (PHR). 1.Consolidated-Clinical Document Architecture (C-CDA) Patient Discharge Summary This document is a summary of your hospital stay to be kept for your reference.2.C-CDA Visit Summary This document is a summary of your hospital stay to be shared with your follow-up providers (doctor, monitor technician, physical therapist, etc.). Guidelines for a Healthy Lifestyle losartan 50 mg oral tablet 1 tab(s) orally once a day metoprolol succinate 25 mg oral tablet, extended release 1 tab(s) orally once a day Normal [facility] Order Reconciliation Page 1 Admission Reconciliation Document Reconciliation Type: Admission requested on behalf of Elgin Lambert (Physician) done by Elgin Lambert (DO) Admission - Reconciliation: 05-Jul-2021 10:35 by: Elgin Lamebrt (DO) Home MedicationsEnteredLast Dose TakenReconciled with current Order Reconciliation Comment/ Additional Information cloNIDine 0.1 mg oral tablet 1 tab(s) orally once a day,05-Jul-2021 AM cloNIDine (CATAPRES) TabletDOSE = 0.1 mg Oral DailycloNIDine 0.1 mg oral tablet continued as the inpatient order cloNIDine (CATAPRES) losartan 50 mg oral tablet 1 tab(s) orally once a [id number] 1 AM Losartan Tablet (COZAAR)DOSE = 50 mg Oral Dailylosartan 50 mg oral tablet continued as the inpatient order Losartan metoprolol succinate 25 mg oral tablet, extended release 1 tab(s) orally once a [id number] 1 AM Metoprolol Succinate Extended Release Tablet, Extended Release (TOPROL-XL)DOSE = 25 mg Oral Dailymetoprolol succinate 25 mg oral tablet, extended release continued as the inpatient order Metoprolol Succinate Extended Release Additional Current Orders Heparin (Repeat Bolus) Injectable (Low Intensity - ACS, Stroke) IntraVenous Push Every 4 HoursRepeat Bolus Doses:If Heparin Assay is LESS than 0.1 Repeat Bolus of 4000 units.If Heparin Assay is between 0.1 and 0.2 Repeat Bolus of 2000 units.If Heparin Assay is between 0.3 and 0.6 (THERAPEUTIC) DO NOT BOLUS.If Heparin Assay is between 0.7 and 1.0 DO NOT BOLUS.If Heparin Assay is between 1.1 and 1.2 DO NOT BOLUS.If Heparin Assay is GREATER than 1.2 DO NOT BOLUS.If Heparin Assay is > 0.6, DO NOT BOLUS.Clinician Notes: Administer with Q 4 hour Heparin Assay result, beginning 4 hours after the drip initiation. Call physician with lab results. Heparin 25,000 units/ D5W 250 mL Infusion Solution (Low Intensity - ACS, Stroke)IntraVenous Admin Rate = 10 mL/hr DOSE Rate = 1,000 units/hrInfusion Rate Adjustments: If Heparin Assay is LESS than 0.1 INCREASE Infusion Rate by 300 units/ hr.If Heparin Assay is between 0.1 and 0.2 INCREASE Infusion Rate by 200 units/ hr. If Heparin Assay is between 0.3 and 0.6 (THERAPEUTIC) DO NOT CHANGE Infusion Rate.If Heparin Assay is between 0.7 and 1.0 REDUCE Infusion Rate by 200 units/ hr.If Heparin Assay is between 1.1 and 1.2 HOLD Infusion for 1 Hour then REDUCE Infusion Rate by 200 units/ hr.If Heparin Assay is GREATER than 1.2 HOLD infusion for 1 hour & repeat Heparin Assay: If repeat is between 0.3 and 0.6 REDUCE Infusion Rate by 300 units/ hr. If repeat is > 0.6, continue to HOLD INFUSION and Contact provider for further orders. Melatonin TabletDOSE = 3 mg Oral At Bedtime, PRN Insomnia Perflutren Lipid Microsphere (Activated) 1.3 mL / NaCL 0.9% T.V. 10 mL Injectable DOSE = 0.5 mL IntraVenous Push OnceCa.655492 mL/Kg/DOSE x 86.4 Kg = 0.5 mL/Dose (Daily Total is 0.5 mL)Clinician Notes: 1. Dilute 1.3 mL of activated DEFINITY with 8.7 mL of normal saline in a 10 mL syringe.2. Inject 0.5 mL of diluted DEFINITY when notified the images/film are unclear to enhance view of Left Ventricular borders.3. Repeat 0.5 mL of DEFINITY until clear images are obtained, not to exceed 10 mLs.4. Once images are obtained or limit of medication is reached, flush line with 10 mL of Normal Saline. Normal [facility] Patient Profile - Adult v2on 07-05-2021 Patient Profile - Adult v2 Profile: Initial Info: How to be AddressedRay(1) Spoken Language PreferredEnglish (1) Stated Reason for Admissionchest pressure Wants Family/Rep Notified of Admissionno Notify PCPnotify PCP Informed of Patient Visiting Rightsyes Arrived [place] Employment Statusunemployed(2) Current or Previous Serviceactive duty, past(2) Service Experienceexposed to hazardous materials(3) Patient Belongingsnone Medications Brought to Hospitalno General Health: Blood Avoidance/Restrictionsno ne(1) Previous Transfusion Reactionno(3) Weight in kg86.4 kilogram(s) Weight in iwo219.4 pound(s) Weight Methodstated Scale Typestanding Height in cm165.1 centimeter(s) Height in feet5 feet Height in inches5 inch(es) Height Methodstated BMI (kg/m2)31.697 square meter RSP Based Care: How would you like to participate in your careactively What is the number one concern for you during this hospitalizationremaining comfortable What is the most important thing we can do to support you during this hospitalizationN/A Is there anything we need to know to best care for Naveed/A Substance: Smoking Statusoccasional user (use that is infrequent, sporadic, not on a daily basis) (4) Tobacco Cessation Education (provide if tobacco use within the last 12 mos)yes Alcohol Useoccasionally(4) Drug Usedenies (4) Drug 2 Usedenies (4) Health Mgmt: Symptoms/Conditions Managed at Homenone Relationship/Environ: Significant Exposurenone(3) Resource/Environmental Concernsnone Primary Source of Support/Comfortno one Lives Withalone Living Arrangementsapartment Services Anticipated at Transitionnone Anticipated Transition [place] Significant IndicatorsComplete Information Review: Allergies, Home Meds and Significant Events have been Reviewed and Verified with Patient/Familyyes ALLERGY, INTOLERANCE, ADVERSE EVENT: Allergies: Erythromycin Base: Drug, Unknown, Active caffine: Food, Other, Active Cipro: Drug, Unknown, Active Intolerances: polyethylene glycol 3350: Drug, GI Upset, Active Electronic Signatures: Matilde Castro ([place]) (Signed 05-Jul-2021 01:58) Authored: Initial Info, General Health, RSP Based Care, Substance, Health Mgmt, Relationship/Environ, Additional Information Last Updated: 05-Jul-2021 01:58 by Matilde Castro ([email or web address]) References: 1. Data Referenced From Patient Profile - Procedure-H and P 14-Jun-2021 10:15 2. Data Referenced From Psychiatric Assessment - Social Work 14-Jun-2021 09:58 3. Data Referenced From Patient Profile - Adult v2 17-Apr-2021 04:20 4. Data Referenced From Risk Screen - Adult Emergency 04-Jul-2021 10:11 Normal [facility] TROPONIN Ion 07-05-2021 Troponin I.cardiac [Mass/Vol] 0.02 ng/mL Normal 0.00 - 0.03 [facility] Comment on above: Result Comment: LESS THAN 0.04 NG/ML: NEGATIVE REPEAT TESTING IN THREE TO SIX HOURS IF CLINICALLY INDICATED. 0.04 - 0.5 NG/ML: CONSISTENT WITH POSSIBLE CARDIAC DAMAGE AND POSSIBLE INCREASED CLINICAL RISK. SERIAL MEASUREMENTS MAY HELP ASSESS EXTENT OF MYOCARDIAL DAMAGE. >0.5 NG/ML: CONSISTENT WITH CARDIAC DAMAGE, INCREASED CLINICAL RISK AND MYOCARDIAL INFARCTION. SERIAL MEASUREMENTS MAY HELP ASSESS EXTENT OF MYOCARDIAL DAMAGE. . Note: Troponin I testing is performed using different testing methodology at [facility] than at [facility]. Direct result comparisons should only be made within the same method. Performed By: #### T ROP2 #### [facility] [address] [place] [address] TROPONIN I Canceled Normal [facility] Comment on above: Order Comment: TEST TROPONIN I WAS CANCELLED, 07/05/2021 01:15 pt transferred. Result Comment: LESS THAN 0.04 NG/ML: NEGATIVE REPEAT TESTING IN THREE TO SIX HOURS IF CLINICALLY INDICATED. 0.04 - 0.5 NG/ML: CONSISTENT WITH POSSIBLE CARDIAC DAMAGE AND POSSIBLE INCREASED CLINICAL RISK. SERIAL MEASUREMENTS MAY HELP ASSESS EXTENT OF MYOCARDIAL DAMAGE. >0.5 NG/ML: CONSISTENT WITH CARDIAC DAMAGE, INCREASED CLINICAL RISK AND MYOCARDIAL INFARCTION. SERIAL MEASUREMENTS MAY HELP ASSESS EXTENT OF MYOCARDIAL DAMAGE. . Note: Troponin I testing is performed using different testing methodology at [facility] than at [facility]. Direct result comparisons should only be made within the same method. Performed By: #### T ROP2 ####[facility] [place], [place] [id number] Troponin I, Serumon 07-05-20 21 Troponin I.cardiac [Mass/Vol] 0.02 ng/mL See Below -[facility] -[place] [address] Work Phone: Comment on above: Reference Range: 0.0 0 - 0.03LESS THAN 0.04 NG/ML: NEGATIVEREPEAT TESTING IN THREE TO SIX HOURSIF CLINICALLY INDICATED.0.04 - 0.5 NG/ML: CONSISTENT WITH POSSIBLECARDIAC DAMAGE AND POSSIBLE INCREASEDCLINICAL RISK.SERIAL MEASUREMENTS MAY HELP ASSESS EXTENT OFMYOCARDIAL DAMAGE.>0.5 NG/ML: CONSISTENT WITH CARDIAC DAMAGE,INCREASED CLINICAL RISK AND MYOCARDIALINFARCTION. SERIAL MEASUREMENTS MAY HELPASSESS EXTENT OF MYOCARDIAL DAMAGE..Note: Troponin I testing is performed using different testing methodology at [facility] than at other [facility]. Direct result comparisons should only be made within the same method. APTTon 07-04-2021 aPTT Coag (Bld) [Time] 27 s Normal 25 - 35 [facility] Comment on above: Result Comment: THE APTT IS NO LONGER USED FOR MONITORING UNFRACTIONATED HEPARIN THERAPY. FOR MONITORING HEPARIN THERAPY, USE THE HEPARIN ASSAY. Performed By: #### U A #### [facility] [address] [place], [place] [phone] Activated Partial Thrombopla stin Timeon 07-04-2021 aPTT Coag (PPP) [Time] 27 s 25 - 35 [facility] [address] Work Phone: Comment on above: THE APTT IS NO LONGE R USED FOR MONITORING UNFRACTIONATED HEPARIN THERAPY. FOR MONITORING HEPARIN THERAPY, USE THE HEPARIN ASSAY. BA CTA ABD AORTA WITH BILAT ILIOFEM EXTR RUNOFF W/WO CONT POST PROCon 07-04-2021 BA CTA ABD AORTA WITH BILAT ILIOFEM EXTR RUNOFF W/WO CONT POST PROC Patient Name: HOSEA ALVAREZ STUDY: CTA ABD AORTA WITH BILAT ILIOFEM EXTR RUNOFF W/WO CONT POST PROC; CT ANGIO CHEST; 07/04/2021 11:32 am INDICATION: History of AAA, worsening chest pain radiating into the back. COMPARISON: CT of the abdomen and pelvis from September 25, 2018. ACCESSION NUMBER(S): [id number]; [id number] ORDERING CLINICIAN: NUBIA YOUNG PROCEDURE: CT ANGIOGRAM OF THE CHEST, ABDOMEN, PELVIS, AND BILATERAL LOWER EXTREMITIES TECHNIQUE: High-resolution contrast-enhanced helical CT of the chest, abdomen, pelvis and both lower extremities was performed, timed to the arterial phase. 3-D processing was performed by the physician on an independent work station, with MIP and volume-rendering techniques. Total of 90 ml of Omnipaque 350 was injected intravenously during the examination. The study was performed without oral contrast. The patient tolerated the injection without complications. FINDINGS: VASCULAR: The ascending aorta is ectatic measuring up to 4.4 cm. Aortic arch and major branches arising from it are unremarkable. Images of the abdominal aorta demonstrate normal caliber vessel with no significant focal stenosis or aneurysm formation. Celiac artery demonstrates no significant focal stenosis. Superior mesenteric artery demonstrates no significant focal stenosis. Inferior mesenteric artery demonstrates no significant focal stenosis. There is a single right renal artery. Right renal artery demonstrates no significant focal stenosis. There is a single renal vein which is patent. There is a single left renal artery. Left renal artery demonstrates 70-90 % narrowing at its origin with poststenotic dilatation. There is a single renal vein which is patent. RIGHT LEG: Right common iliac artery is widely patent with no significant stenosis. Right external iliac artery is widely patent with no significant stenosis. Right internal iliac artery is widely patent with no significant stenosis. Right common femoral artery is widely patent with no significant stenosis. Right profunda femoris artery is widely patent with no significant stenosis. Right superficial femoral artery is widely patent with no significant stenosis. Right popliteal artery is widely patent with no significant stenosis. Right anterior tibial artery is widely patent with no significant stenosis. Dorsalis pedis is seen and normal in appearance. Right tibioperoneal trunk is widely patent with no significant stenosis. Right posterior tibial artery is widely patent with no significant stenosis. Posterior tibial artery is normal in caliber and seen to the foot. Right peroneal artery is widely patent with no significant stenosis. LEFT LEG: Left common iliac artery is widely patent with no significant stenosis. Left external iliac artery is widely patent with no significant stenosis. Left internal iliac artery is widely patent with no significant stenosis. Left common femoral artery is widely patent with no significant stenosis. Left profunda femoris artery is widely patent with no significant stenosis. Left superficial femoral artery is widely patent with no significant stenosis. Left popliteal artery is widely patent with no significant stenosis. Left anterior tibial artery is widely patent with no significant stenosis. Dorsalis pedis is seen and normal in appearance. Left tibioperoneal trunk is widely patent with no significant stenosis. Left posterior tibial artery is widely patent with no significant stenosis. Posterior tibial artery is normal in caliber and seen to the foot. Left peroneal artery is widely patent with no significant stenosis. NONVASCULAR FINDINGS: CHEST: LUNG/PLEURA/LARGE AIRWAYS: No lung masses, pulmonary nodules or consolidations are present. There is no pleural effusion or pneumothorax. VESSELS: Ascending aorta is dilated as described above otherwise pulmonary arteries are normal caliber. No atherosclerotic changes of the aorta are identified. No coronary artery calcifications are present. HEART: The heart is normal in size. There is no pericardial effusion. MEDIASTINUM AND LIZZETTE: No mediastinal, hilar or axillary lymphadenopathy is present. The esophagus is normal. CHEST WALL AND LOWER NECK: The soft tissues of the chest wall demonstrate no gross abnormality. The visualized thyroid gland appears within normal limits. BONE: No acute osseous abnormality. No lytic or blastic lesions identified. ABDOMEN: LIVER: The liver is normal in size without evidence of focal liver lesions. BILE DUCTS: The intrahepatic and extrahepatic ducts are not dilated. GALLBLADDER: No calcified stones. No wall thickening. PANCREAS: The pancreas appears unremarkable without evidence of ductal dilatation or masses. SPLEEN: The spleen is normal in size. ADRENAL GLAND (more content not included)... Normal [facility] BASIC METABOLIC PANELon 10- Anion gap [Moles/Vol] 10 mmol/L Normal 10 - 20 [facility] [address] Work Phone: Comment on above: Performed By: #### C BCDF #### [address], [place] [id number] Calcium [Mass/Vol] 9.4 mg/dL Normal 8.6 - 10.3 [facility] [address] Work Phone: Comment on above: Performed By: #### C BCDF #### [address], [place] [id number] Chloride [Moles/Vol] 103 mmol/L Normal 98 - 107 [facility] [address] Work Phone: Comment on above: Performed By: #### C BCDF #### [address], [place] [id number] Creatinine [Mass/Vol] 1.00 mg/dL Normal 0.50 - 1.30 [facility] [address] Work Phone: Comment on above: Reference Range: 0.5 0 - 1.30 Performed By: #### C BCDF #### [address], [place] [id number] GFR- AM. >60 Normal >60 [facility] Comment on above: Result Comment: CALC ULATIONS OF ESTIMATED GFR ARE PERFORMED USING THE MDRD STUDY EQUATION FOR THE IDMS-TRACEABLE CREATININE METHODS. CLIN CHEM 2007;53:766-72 Performed By: #### C BCDF #### [address], [place] [id number] GFR-NON AM. >60 Normal >60 [facility] Comment on above: Performed By: #### C BCDF #### [address], [place] [id number] Glucose [Mass/Vol] 106 mg/dL High 74 - 99 [facility] [address] Work Phone: Comment on above: Performed By: #### C BCDF #### [facility] [address] [facility] [place], [place] [phone] HCO3 (Bld) [Moles/Vol] 31 mmol/L Normal 21 - 32 [facility] Comment on above: Performed By: #### C BCDF #### [address], [place] [id number] Potassium [Moles/Vol] 4.5 mmol/L Normal 3.5 - 5.3 [facility] [address] Work Phone: Comment on above: Performed By: #### C BCDF #### [address], [place] [id number] Sodium [Moles/Vol] 139 mmol/L Normal 136 - 145 [facility] [address] Work Phone: Comment on above: Performed By: #### C BCDF #### [address] [place], [place] [id number] Urea nitrogen [Mass/Vol] 17 mg/dL Normal 6 - 23 [facility] [address] Work Phone: Comment on above: Performed By: #### C BCDF #### [address], [place] [phone] BNPon 07-04-2021 Natriuretic peptide B (Bld) [Mass/Vol] 49 pg/mL Normal 0 - 99 [facility] Comment on above: Result Comment: . <1 00 pg/mL - Heart failure unlikely 100-299 pg/mL - Intermediate probability of acute heart . failure exacerbation. Correlate with clinical . context and patient history. >=300 pg/mL - Heart Failure likely. Correlate with clinical . context and patient history. BNP testing is performed using different testing methodology at [facility] than at other [facility]. Direct result comparisons should only be made within the same method. Performed By: #### C BCDF #### [facility] [address] [facility] [place], [place] [phone] CBC AND DIFFERENTIALon 07-04 % AUTOMATED IMMATURE GRAN 0.6 % Normal 0.0 - 0.9 [facility] Comment on above: Result Comment: Kath ture Granulocyte Count (IG) includes promyelocytes, myelocytes and metamyelocytes but does not include bands. Percent differential counts (%) should be interpreted in the context of the absolute cell counts (cells/L). Performed By: #### C BCDF ####[facility] [facility] [place], [place] [phone] Basophils (Bld) [#/Vol] 0.02 10*3/uL Normal 0.00 - 0.10 [facility] Comment on above: Performed By: #### C BCDF ####[facility] [facility] [place], [place] [phone] Basophils/100 WBC (Bld) 0.6 % Normal 0.0 - 2.0 [facility] Comment on above: Performed By: #### C BCDF ####[facility] [facility] [place], [place] [phone] Eosinophils (Bld) [#/Vol] 0.09 10*3/uL Normal 0.00 - 0.70 [facility] Comment on above: Performed By: #### C BCDF ####[facility] [facility] [place], [place] [phone] Eosinophils/100 WBC (Bld) 2.8 % Normal 0.0 - 6.0 [facility] Comment on above: Performed By: #### C BCDF ####[facility] [facility] [place], [place] [phone] Erythrocyte distribution width (RBC) [Ratio] 12.8 % Normal 11.5 - 14.5 [facility] Comment on above: Performed By: #### C BCDF ####[facility] [facility] [place], [place] [phone] Hematocrit (Bld) [Volume fraction] 39.4 % Low 41.0 - 52.0 [facility] Comment on above: Performed By: #### C BCDF ####[facility] [facility] [place], [place] [phone] Hemoglobin (Bld) [Mass/Vol] 13.3 g/dL Low 13.5 - 17.5 [facility] Comment on above: Performed By: #### C BCDF ####[facility] [facility] [place], [place] [phone] Lymphocytes (Bld) [#/Vol] 0.85 10*3/uL Low 1.20 - 4.80 [facility] Comment on above: Performed By: #### C BCDF ####[address], [place] [phone] Lymphocytes/100 WBC (Bld) 26.0 % Normal 13.0 - 44.0 [facility] Comment on above: Performed By: #### C BCDF ####[address], [place] [phone] MCHC (RBC) [Mass/Vol] 33.8 g/dL Normal 32.0 - 36.0 [facility] Comment on above: Performed By: #### C BCDF ####[address], [place] [id number] MCV (RBC) [Entitic vol] 83 fL Normal 80 - 100 [facility] Comment on above: Performed By: #### C BCDF ####[facility] [place] [address], [place] [phone] Monocytes (Bld) [#/Vol] 0.35 10*3/uL Normal 0.10 - 1.00 [facility] Comment on above: Performed By: #### C BCDF ####[address], [place] [id number] Monocytes/100 WBC (Bld) 10.7 % Normal 2.0 - 10.0 [facility] Comment on above: Performed By: #### C BCDF ####[facility] [place] [address], [place] [phone] Neutrophils (Bld) [#/Vol] 1.94 10*3/uL Normal 1.20 - 7.70 [facility] Comment on above: Performed By: #### C BCDF ####[facility] [facility] [place] [phone] Neutrophils/100 WBC (Bld) 59.3 % Normal 40.0 - 80.0 [facility] Comment on above: Performed By: #### C BCDF ####[facility] [facility] [place], [place] [phone] Platelets (Bld) [#/Vol] 140 10*3/uL Low 150 - 450 [facility] Comment on above: Performed By: #### C BCDF ####[facility] [facility] [place], [place] [phone] RBC 4.73 x10E12/L Normal 4.50 - 5.90 [facility] Comment on above: Performed By: #### C BCDF ####[facility] [facility] [place], [place] [phone] WBC (Bld) [#/Vol] 3.3 10*3/uL Low 4.4 - 11.3 [facility] Comment on above: Performed By: #### C BCDF ####[facility] [facility] [place], [place] [phone] CHEST 1 VIEWon 07-04-2021 CHEST 1 VIEW STUDY: Chest Radiograph; 07/04/2021 9:31 AM. INDICATION: Chest pain and pressure. COMPARISON: CXR 06/07/2021. ACCESSION NUMBER(S): [id number] ORDERING CLINICIAN: NUBIA YOUNG DO TECHNIQUE: Frontal chest was obtained at 09:50 hours. FINDINGS: CARDIOMEDIASTINAL SILHOUETTE: Cardiomediastinal silhouette is normal in size and configuration. LUNGS: Lungs are clear. ABDOMEN: No remarkable upper abdominal findings. BONES: No acute osseous changes. IMPRESSION: 1. No acute pulmonary infiltrate. Signed by Candice Crandall Electronically signed by: CANDICE CRANDALL MD Normal [facility] CORONAVIRUS 2019 BY PCRon SARS-CoV-2 (COVID-19) RNA TATI+probe Ql (Unsp spec) Not detected Normal Not Detected [facility] Comment on above: Result Comment: . This test has received FDA Emergency Use Authorization (EUA) and has been verified by [facility]. This test is only authorized for the duration of time that circumstances exist to justify the authorization of the emergency use of in vitro diagnostic tests for the detection of SARS-CoV-2 virus and/or diagnosis of COVID-19 infection under section 564(b)(1) of the Act, 21 U.S.C. 360bbb-3(b)(1), unless the authorization is terminated or revoked sooner. [facility] is certified under CLIA-88 as qualified to perform high complexity testing. Testing is performed in the [facility] laboratory located at [address] [place] [address], [place] [address]. SARS-CoV-2/Flu/RSV Multiplex Test: Fact sheet for providers: https://www.fda.gov/media/026526/download Fact sheet for patients: https://www.fda.gov/media/141509/download Performed By: #### C OV19 ####[facility] [place] [phone] DATE OF SYMPTOM ONSET [YYYYMMDD]? 20210704 Normal [facility] Comment on above: Performed By: #### C OV19 ####[facility] [place] [phone] Lab Specimen Source Nasal, Nasopharyngeal Normal [facility] Comment on above: Performed By: #### C OV19 ####[facility] [place] [phone] Angio Cheston 07-04-2021 CTA Chest vessels Normal [facility] [address] Work Phone: CTA ABD Aorta With Bilat Елена ofem Extr Runoff w/wo Cont Post Procon 07-04-2021 CTA ABD Aorta With Bilat Iliofem Extr Runoff w/wo Cont Post Proc Normal [facility] [address] Work Phone: Complete Blood Count + Lorena conner 07-04-2021 Basophils/100 WBC (Bld) 0.6 % 0.0 - 2.0 [facility] [address] Work Phone: Erythrocyte distribution width (RBC) [Ratio] 12.8 % See Below [facility] [address] Work Phone: Comment on above: Reference Range: 11. 5 - 14.5 Hematocrit (Bld) [Volume fraction] 39.4 % below low threshold See Below [facility] [address] Work Phone: Comment on above: Reference Range: 41. 0 - 52.0 Hemoglobin (Bld) [Mass/Vol] 13.3 g/dL below low threshold See Below [facility] [address] Work Phone: Comment on above: Reference Range: 13. 5 - 17.5 Lymphocytes/100 WBC (Bld) 26.0 % See Below [facility] [address] Work Phone: Comment on above: Reference Range: 13. 0 - 44.0 MCHC (RBC) [Mass/Vol] 33.8 g/dL See Below [facility] [address] Work Phone: Comment on above: Reference Range: 32. 0 - 36.0 MCV (RBC) [Entitic vol] 83 fL 80 - 100 [facility] [address] Work Phone: Monocytes/100 WBC (Bld) 10.7 % 2.0 - 10.0 [facility] [address] Work Phone: Neutrophils/100 WBC (Bld) 59.3 % See Below [facility] [address] Work Phone: Comment on above: Reference Range: 40. 0 - 80.0 Platelets (Bld) [#/Vol] 140 10*3/uL below low threshold 150 - 450 [facility] [address] Work Phone: RBC (Bld) [#/Vol] 4.73 {x10E12/L} See Below -[facility] [address] Work Phone: Comment on above: Reference Range: 4.5 0 - 5.90 WBC (Bld) [#/Vol] 3.3 10*3/uL below low threshold 4.4 - 11.3 [facility] [address] Work Phone: Complete Blood Count + Differential 0.02 {x10E9/L} See Below [facility] [address] Work Phone: Comment on above: Reference Range: 0.0 0 - 0.10 Complete Blood Count + Differential 0.09 {x10E9/L} See Below -[facility] [address] Work Phone: Comment on above: Reference Range: 0.0 0 - 0.70 Complete Blood Count + Differential 0.35 {x10E9/L} See Below -[facility] [address] Work Phone: Comment on above: Reference Range: 0.1 0 - 1.00 Complete Blood Count + Differential 0.85 {x10E9/L} below low threshold See Below [facility] [address] Work Phone: Comment on above: Reference Range: 1.2 0 - 4.80 Complete Blood Count + Differential 1.94 {x10E9/L} See Below -[facility] [address] Work Phone: Comment on above: Reference Range: 1.2 0 - 7.70 Complete Blood Count + Differential 2.8 % 0.0 - 6.0 [facility] [address] Work Phone: Complete Blood Count + Differential 0.6 % 0.0 - 0.9 [facility] [address] Work Phone: Comment on above: Immature Granulocyte Count (IG) includes promyelocytes, myelocytes and metamyelocytes but does not include bands. Percent differential counts (%) should be interpreted in the context of the absolute cell counts (cells/L). Coronavirus 2019 RNA by PCR, Symptomaticon 07-04-2021 Date and time of symptom onset 20210704 1 [facility] [address] Work Phone: Coronavirus 2019 RNA by PCR, Symptomatic Not detected Normal See Below [facility] [address] Work Phone: Comment on above: SOURCE: Nasal, Nasop haryngealReference Range: Not Detected.This test has received FDA Emergency Use Authorization (EUA) and has been verified by [facility]. This test is only authorized for the duration of time that circumstances exist to justify the authorization of the emergency use of in vitro diagnostic tests for the detection of SARS-CoV-2 virus and/or diagnosis of COVID-19 infection under section 564(b)(1) of the Act, 21 U.S.C. 360bbb-3(b)(1), unless the authorization is terminated or revoked sooner. [facility] is certified under CLIA-88 as qualified to perform high complexity testing. Testing is performed in the [facility] laboratory located at [address] [place] [address]. SARS-CoV-2/Flu/RSV Multiplex Test: Fact sheet for providers: https://www.fda.gov/media/806963/downloadFact sheet for patients: https://www.fda.gov/media/785024/download Covid 19 Resultson 1 SARS-CoV-2 (COVID-19) RNA TATI+probe Ql (Unsp spec) NEGATIVE COVID-19 Test Coronaviruses are common world-wide and are the cause of many common colds. SARS-COV2 is a new coronavirus that began circulating worldwide in 2019 so we are calling it COVID-19. It has been estimated that four out of five patients with COVID-19 will recover at home without the need for medical attention. Symptoms of COVID-19 may include cough, fever, shortness of breath, loss of taste or smell and other flu-like symptoms including chills, sore muscles, sore throat, and headache. Severe illness is more common in older people and people with other health problems such as high blood pressure, obesity, and immune system problems. If the test is positive, you have COVID-19. You will be contacted by the ordering physicians office and instructed to remain on home isolation, in accordance with CDC guidelines. You may also be contacted by the [facility] to see if any of your close contacts may have been exposed to the virus and need to quarantine. If the test is negative, you likely do not have COVID-19 at this time, but you still may have a different illness that can spread to other people (like Influenza, or the Flu) and could still be at risk for getting COVID-19. We recommend that you stay away from other people to limit the spread of illness until your symptoms are improving and you are fever-free for 24 hours without the use of fever lowering medications such as acetaminophen or ibuprofen. No test is 100% accurate so if you are still concerned you may have COVID-19, talk to your doctor about the need to continue to stay away from others. Medicines Unless your provider told you not to use the following: Acetaminophen (Tylenol and others) is generally safe. Anti-inflammatory medications, such as Ibuprofen (Advil or Motrin) or Naproxen (Aleve) can also be used. Yngl-bge-okwhewh cough and cold medicines can be used according to the instructions on the package. Some dmlp-bkb-wibhbpk medicines also contain acetaminophen. Make sure you are not taking more than your recommended dose. For those not hospitalized, there is no specific treatment available for this illness. Antibiotics do not treat Coronaviruses. Follow-Up Follow up with your doctor by scheduling a virtual visit or consider follow-up at one of our urgent care fever clinics. If you are having difficulty breathing, or are very weak and having difficulty standing, this is a medical emergency. Call 911 or have someone take you to the nearest emergency room immediately. If possible, wear a facemask. Additional guidance from the CDC for patients who tested POSITIVE for COVID-19 How to isolate: Isolate yourself in a specific room at home and limit your contact with others. Use a separate bathroom from other members of the household, when possible. Leave home only to get essential medical care. Do not go to work, school or public areas. Avoid using public transportation, ride-sharing, or taxis. Restrict contact with pets and other animals. If you must care for your pet or be around animals while you are sick, wash your hands before and after your interaction and wear a facemask. Make sure that shared spaces in the home have good airflow, such as by an air conditioner or an opened window, weather permitting. Personal Hygiene Procedures: Wear a face mask when in the same room as other people or pets. If a face mask interferes with your breathing, others should wear a mask when sharing space with you. Frequent hand-washing: wash your hands with soap and water for at least 20 seconds. If soap and water are not available, use alcohol-based hand market research manager. Avoid touching your eyes, nose, and mouth with unwashed hands. Household Hygiene Procedures: Avoid sharing personal household items such as dishes, glassware, cups, eating utensils, towels or bedding with other people or pets in your home. After use, these items should be washed with soap and hot water. Disinfect all high-touch surfaces every day with antibacterial cleaning solutions such as Lysol wipes, bleach, cleansers, etc. High-touch surfaces include tabletops, doorknobs, bathroom fixtures, toilets, phones, keyboards, tablets and bedside tables. Immediately clean any surfaces that may have blood, poop or body fluids on them, using antibacterial cleaning solutions such as Lysol wipes, bleach, cleansers, etc. If clothing or bedding come into contact with blood, poop or body fluids, they should be washed immediately. Follow the directions on the laundry detergent and clothing labels but hot water is recommended when possible. Stopping home isolation precautions: If possible, consult your doctor before stopping home isolation precautions. According to the CDC, you can discontinue home isolation precautions when you have met both of these criteria: Your fever and respiratory symptoms have been gone for 24 guerline (more content not included)... Normal [facility] Discharge Planning [id number] 1 Discharge Planning Note2 Discharge Planning: Anticipated Discharge [id number] Discharge Planning 07-04-21 [id number] Pt asked attending to speak to DAVID. DAVID is familiar with pt from multiple ED visits, multiple requests to speak with DAVID. 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 SW asked hand edge bander to ask pt what his needs were -pt said he wanted referrals for cardiology and urology. Saddle Maker said she could get these for the pt. Pt also asked for a schedule of his upcoming appts. These were emailed to hand edge bander to give to pt. Patient will be admitted. Mersisa RITTER Assessment: Discharge Planning Assessment [id number] Electronic Signatures: Merissa Acevedo (DAVID) (Signed 04-Jul-2021 14:43) Authored: Discharge Planning, Assessment Last Updated: 04-Jul-2021 14:43 by Merissa Acevedo (DAVID) Normal [facility] EMR ADDONon 07-04-2021 ADDON CONFIRMATION REQUEST REC'D Normal [facility] Comment on above: Performed By: #### E MRAD ####[facility] [place], [place] [id number] LIPASEon 07-04-2021 Lipase [Catalytic activity/Vol] 10 U/L Normal - 82 [facility] Comment on above: Result Comment: Jocelyn puncture immediately after or during the administration of Metamizole may lead to falsely low results. Testing should be performed immediately prior to Metamizole dosing. T-hialfl-s-benzoquinone imine (metabolite of Acetaminophen) will generate erroneously low results in samples for patients that have taken toxic doses of acetaminophen. Performed By: #### U A #### [facility] [address] [place], [place] [id number] Laboratory - Chemistry and C hemistry - challengeon 07-04-2021 CO2 [Moles/Vol] 31 mmol/L 21 - 32 [facility] [address] [facility] Work Phone: Lipase, Serumon 07-04-2021 Lipase [Catalytic activity/Vol] 10 U/L 9 - 82 [facility] [address] Work Phone: Comment on above: Venipuncture immedia tely after or during the administration of Metamizole may lead to falsely low results. Testing should be performed immediately prior to Metamizole dosing. S-jsatuc-q-benzoquinone imine (metabolite of Acetaminophen) will generate erroneously low results in samples for patients that have taken toxic doses of acetaminophen. Magnesium, Serumon 1 Magnesium [Mass/Vol] 2.07 mg/dL Normal 1.60 - 2.40 [facility] [address] Work Phone: Comment on above: Reference Range: 1.6 0 - 2.40 Performed By: #### C BCDF #### [facility] [address] [place], [place] [id number] No Panel Informationon 07-04 [email or web address]?RetrieveTestByDateTim e?YdwrxnoSE=[id number]&Da te=09-01-2021&Time=13%3a 01%3a26%3a00&TestType=EC G&Site=6&OutputType=PDF& Ext=PDF [facility] [address] Work Phone: Normal sinus rhythm [facility] [address] Work Phone: Abnormal [facility] [address] Work Phone: [phone] 1 [facility] [address] Work Phone: [phone] [facility] [address] Work Phone: 161 1 [facility] [address] Work Phone: [phone] 1 [facility] [address] Work Phone: [phone] 1 [facility] [address] Work Phone: [phone] 1 [facility] [address] Work Phone: 1 1 [facility] [address] Work Phone: -28 1 [facility] [address] Work Phone: 74 1 [facility] [address] Work Phone: 392 1 [facility] [address] Work Phone: 374 1 [facility] [address] Work Phone: [phone] 1 [facility] [address] Work Phone: [phone] 1 [facility] [address] Work Phone: [phone] 1 [facility] [address] Work Phone: [phone] >60 >60 [facility] [address] Work Phone: [phone] Comment on above: CALCULATIONS OF NIKOLE MATED GFR ARE PERFORMED USING THE MDRD STUDY EQUATION FOR THE IDMS-TRACEABLE CREATININE METHODS. CLIN CHEM 2007;53:766-72 49 pg/mL 0 - 99 [facility] [address] Work Phone: Comment on above: . <100 pg/mL - Heart failure oinazcmv506-739 pg/mL - Intermediate probability of acute heart. failure exacerbation. Correlate with clinical. context and patient history. >=300 pg/mL - Heart Failure likely. Correlate with clinical. context and patient history.BNP testing is performed using different testing methodology at [facility] than at other [facility]. Direct result comparisons should only be made within the same method. [email or web address]?RetrieveTestByDateTim e?AqycemhTM=[id number]&Da te=09-01-2021&Time=09%3a 35%3a48%3a00&TestType=EC G&Site=6&OutputType=PDF& Ext=PDF [facility] [address] Work Phone: Normal sinus rhythm [facility] [address] Work Phone: Abnormal [facility] [address] Work Phone: [phone] [facility] [address] Work Phone: [phone] 1 [facility] [address] Work Phone: 172 1 [facility] [address] Work Phone: 110 1 [facility] [address] Work Phone: 208 1 [facility] [address] Work Phone: 11 1 [facility] [address] Work Phone: 1 1 [facility] [address] Work Phone: -24 1 [facility] [address] Work Phone: 30 1 [facility] [address] Work Phone: 375 1 [facility] [address] Work Phone: 370 1 [facility] [address] Work Phone: 100 1 [facility] [address] Work Phone: 196 1 [facility] [address] Work Phone: 62 1 [facility] [address] Work Phone: Provider Note - ED v3on 06-23 Provider Note - ED v3 Provider Note: Chart Review: ED NOTES ED NOTES: HPI: Patient is a 50-year-old male presenting chief complaint of chest pain. His chest pain began this morning around 8 AM. He has significant past medical history of PE, ascending aortic aneurysm, bipolar, renal artery stenosis, and frequently here in the emergency department for similar complaints. He states his pain is pressure substernal in his chest going into his back. His back pain has been relieved but he still remains have pressure notably to the left side of his chest. He denies any shortness of breath. He states the chest pain was worse when he was riding his bike. Patient's complaints have been improving without any alleviating factors. PMHx: reviewed PSHx: reviewed Medications: Reviewed in nursing notes, EMR, and discussed with patient Allergies: Reviewed in EMR and discussed with patient ROS:All other review of systems are negative except as noted above and HPI or ROS. (Bolded if positive) CONSTITUTIONAL fever, chills. ENT sore throat, congestion, rhinorrhea. CARDIOVASULAR palpitations, swelling, chest pain RESPIRATORY cough, shortness of breath, wheeze GI abdominal pain, nausea, vomiting, diarrhea. GENITOURINARY dysuria, hematuria, frequency. MUSCULOSKELETAL deformity, neck pain. SKIN rash, color change. NEUROLOGIC headache, numbness, focal weakness. Physical Exam: General/Constitutional: Alert, oriented , cooperative, in no acute distress. Head: normocephalic, atraumatic Skin: Intact, dry skin, no lesions. Eyes: PERRL, EOMs intact, Conjunctiva pink with no erythema or exudates. No scleral icterus. ENT: No external deformities. Nares patent, mucus membranes moist. Pharynx clear, uvula midline. Neck: Supple, without meningismus. Trachea at midline. No lymphadenopathy. No JVD Pulmonary: Clear bilaterally. No crackles, rhonchi or wheezing. Cardiac: Regular rate and rhythm. Pulses 2+ throughout upper and lower extremities. No murmur, gallop, rub. Abdomen: Soft, nontender, active bowel sounds. No palpable organomegaly. No rebound or guarding. No CVA tenderness. No pulsatile mass Genitourinary: Exam deferred. Musculoskeletal: Full range of motion, no deformity. Pulses full and equal. Non-edematous. Neurological: Alert and oriented to person place and time. no focal neuro deficits. Sensation intact throughout. Neurovascular intact in bilateral upper and lower extremities Psychiatric: Appropriate mood and affect. Calm. MDM/ED COURSE: EKG shows normal sinus rhythm, normal voltage criteria for LVH, ST depression in isolated V3 and V1. ST elevation in lateral leads. When compared to prior EKG similar findings are present. Patient presented for evaluation of chest pain. With concern for ACS, pneumonia, aortic dissection/worsening aneurysm. Lab work and imaging were performed. Work-up was significant for stable findings on the CT of his chest in relation to his aneurysm and renal artery stenosis which is already known to the patient. On his delta troponin it was significantly elevated. Patient was treated as NSTEMI and heparinized. He requested to go to [facility] for transfer. At this time patient is chest pain-free here in the ED and we are awaiting a callback from the transfer center for a bed availability at [facility] as we do not have any available at our hospital. Patient was signed out in stable condition to oncoming physician at shift change. Patient was told of all the findings on the CT and results of today's labs and imaging. Note: This note was dictated by speech recognition. Minor errors in furnace filler may be present. HISTORY OF PRESENTING ILLNESS HOSEA is a 50 year old Male and was seen by me at 04-Jul-2021 09:38 for a chief complaint of chest pain . Other complaints include: pt. presents to the ED by squad for chest pressure. pt stated that he slept outside under a pavilion and then started to ride his bike and started to have chest discomfort. pt has a hx of thoracic aneurysm. pt. denies any SON, dizziness, N/V, fever and chills. (1). Triage Information: Most recent Vital Sign Value Date Temp (F): 97.2 07-04-2021 09:41 Temp (C): 36.2 07-04-2021 09:41 Heart Rate (beats/min): 65 07-04-2021 09:41 Respirations (breaths/min): 18 07-04-2021 09:41 SpO2 (%): 98 07-04-2021 09:41 BP Systolic (mm Hg): 152 07-04-2021 09:41 BP Diastolic (mm Hg): 82 07-04-2021 09:41 PAST MEDICAL HISTORY ALLERGIES/INTOLERANCES: Allergy Allergen: Erythromycin Base Type: Drug Reaction: Unknown Allergen: caffine Type: Food Reaction: Other Allergen: Cipro Type: Drug Reaction: Unknown Intolerance Allergen: polyethylene glycol 3350 Type: Drug Reaction: GI Upset HEALTH HISTORY: Family History Name:No family history of cancer Code:Z78.9 Name:No family history of coronary artery disease Code:Z78.9 Medic (more content not included)... Normal [facility] Radiologyon 07-04-2021 XR Chest Single view Normal [facility] Work Phone: Risk Screen - Adult Emergenc yon 07-04-2021 Risk Screen - Adult Emergency Preferred Language: Preferred Language: Preferred Language for Discussing Health Care (patient/designee)Fran villalta Advanced Directives: Advance Directive/DNRno Family Violence Adult: Abuse Screen: Are you or have you been threatened or abused physically, emotionally, or sexually by anyoneno Learning Assessment (Patient): Learning Assessment (Patient): Patient is Able to be Assessed for Learningyes Factors Influencing Readiness to Learnacuteness of illness Factors that Impact Ability to Learnnone Devices/Methods Used to Communicatenone Learning Preferencesverbal instruction; written material Cultural Considerationsnone Developmental Considerationsnone Zoroastrian Considerationsnone Learning Assessment (Other Learner): Learning Assessment (Other Learner): Other learner availableno Pressure Injury/TB/Substance: Pressure Injury: Do you have a coughno Smoking Statusoccasional user (use that is infrequent, sporadic, not on a daily basis) Tobacco Cessation Education (provide if tobacco use within the last 12 mos) patient declined Alcohol Useoccasionally Drug Usedenies Drug 2 Usedenies Admission Risk Screen: Significant IndicatorsComplete CAGE: CAGE: Is this an injured patient at a Trauma Center ([facility]/[place] /[place]): no Electronic Signatures: Irving Guerrero (BROOK[place]NN) (Signed 04-Jul-2021 10:12) Authored: Preferred Language, Advanced Directives, Family Violence Adult, Learning Assessment (Patient), Learning Assessment (Other Learner), Pressure Injury/TB/Substance, Pressure Injury, CAGE Last Updated: 04-Jul-2021 10:12 by Irving Guerrero (BROOKLYNN) [facility] TH CT ANGIO CHESTon 07-04-20 CT ANGIO CHEST Patient Name: HOSEA ALVAREZ STUDY: CTA ABD AORTA WITH BILAT ILIOFEM EXTR RUNOFF W/WO CONT POST PROC; CT ANGIO CHEST; 07/04/2021 11:32 am INDICATION: History of AAA, worsening chest pain radiating into the back. COMPARISON: CT of the abdomen and pelvis from September 25, 2018. ACCESSION NUMBER(S): [id number]; [id number] ORDERING CLINICIAN: NUBIA YOUNG PROCEDURE: CT ANGIOGRAM OF THE CHEST, ABDOMEN, PELVIS, AND BILATERAL LOWER EXTREMITIES TECHNIQUE: High-resolution contrast-enhanced helical CT of the chest, abdomen, pelvis and both lower extremities was performed, timed to the arterial phase. 3-D processing was performed by the physician on an independent work station, with MIP and volume-rendering techniques. Total of 90 ml of Omnipaque 350 was injected intravenously during the examination. The study was performed without oral contrast. The patient tolerated the injection without complications. FINDINGS: VASCULAR: The ascending aorta is ectatic measuring up to 4.4 cm. Aortic arch and major branches arising from it are unremarkable. Images of the abdominal aorta demonstrate normal caliber vessel with no significant focal stenosis or aneurysm formation. Celiac artery demonstrates no significant focal stenosis. Superior mesenteric artery demonstrates no significant focal stenosis. Inferior mesenteric artery demonstrates no significant focal stenosis. There is a single right renal artery. Right renal artery demonstrates no significant focal stenosis. There is a single renal vein which is patent. There is a single left renal artery. Left renal artery demonstrates 70-90 % narrowing at its origin with poststenotic dilatation. There is a single renal vein which is patent. RIGHT LEG: Right common iliac artery is widely patent with no significant stenosis. Right external iliac artery is widely patent with no significant stenosis. Right internal iliac artery is widely patent with no significant stenosis. Right common femoral artery is widely patent with no significant stenosis. Right profunda femoris artery is widely patent with no significant stenosis. Right superficial femoral artery is widely patent with no significant stenosis. Right popliteal artery is widely patent with no significant stenosis. Right anterior tibial artery is widely patent with no significant stenosis. Dorsalis pedis is seen and normal in appearance. Right tibioperoneal trunk is widely patent with no significant stenosis. Right posterior tibial artery is widely patent with no significant stenosis. Posterior tibial artery is normal in caliber and seen to the foot. Right peroneal artery is widely patent with no significant stenosis. LEFT LEG: Left common iliac artery is widely patent with no significant stenosis. Left external iliac artery is widely patent with no significant stenosis. Left internal iliac artery is widely patent with no significant stenosis. Left common femoral artery is widely patent with no significant stenosis. Left profunda femoris artery is widely patent with no significant stenosis. Left superficial femoral artery is widely patent with no significant stenosis. Left popliteal artery is widely patent with no significant stenosis. Left anterior tibial artery is widely patent with no significant stenosis. Dorsalis pedis is seen and normal in appearance. Left tibioperoneal trunk is widely patent with no significant stenosis. Left posterior tibial artery is widely patent with no significant stenosis. Posterior tibial artery is normal in caliber and seen to the foot. Left peroneal artery is widely patent with no significant stenosis. NONVASCULAR FINDINGS: CHEST: LUNG/PLEURA/LARGE AIRWAYS: No lung masses, pulmonary nodules or consolidations are present. There is no pleural effusion or pneumothorax. VESSELS: Ascending aorta is dilated as described above otherwise pulmonary arteries are normal caliber. No atherosclerotic changes of the aorta are identified. No coronary artery calcifications are present. HEART: The heart is normal in size. There is no pericardial effusion. MEDIASTINUM AND LIZZETTE: No mediastinal, hilar or axillary lymphadenopathy is present. The esophagus is normal. CHEST WALL AND LOWER NECK: The soft tissues of the chest wall demonstrate no gross abnormality. The visualized thyroid gland appears within normal limits. BONE: No acute osseous abnormality. No lytic or blastic lesions identified. ABDOMEN: LIVER: The liver is normal in size without evidence of focal liver lesions. BILE DUCTS: The intrahepatic and extrahepatic ducts are not dilated. GALLBLADDER: No calcified stones. No wall thickening. PANCREAS: The pancreas appears unremarkable without evidence of ductal dilatation or masses. SPLEEN: The spleen is normal in size. ADRENAL GLAND (more content not included)... Normal [facility] TROPONIN Ion 07-04-2021 Troponin I.cardiac [Mass/Vol] 0.10 ng/mL Critically high 0.00 - 0.03 [facility] Comment on above: Order Comment: Josseline kline troponin- RB to Jeff Arechiga , 07/04/2021 16:54 Result Comment: LESS THAN 0.04 NG/ML: NEGATIVE REPEAT TESTING IN THREE TO SIX HOURS IF CLINICALLY INDICATED. 0.04 - 0.5 NG/ML: CONSISTENT WITH POSSIBLE CARDIAC DAMAGE AND POSSIBLE INCREASED CLINICAL RISK. SERIAL MEASUREMENTS MAY HELP ASSESS EXTENT OF MYOCARDIAL DAMAGE. >0.5 NG/ML: CONSISTENT WITH CARDIAC DAMAGE, INCREASED CLINICAL RISK AND MYOCARDIAL INFARCTION. SERIAL MEASUREMENTS MAY HELP ASSESS EXTENT OF MYOCARDIAL DAMAGE. . Note: Troponin I testing is performed using different testing methodology at [facility] than at other [facility]. Direct result comparisons should only be made within the same method. Called troponin- RB to Jeff Hoanggarethjeevan , 07/04/2021 16:54 Performed By: #### [facility] #### [facility] [address] [place], [place] [id number] Troponin I.cardiac [Mass/Vol] 0.71 ng/mL Critically high 0.00 - 0.03 [facility] Comment on above: Order Comment: Josseline ODOM to [facility], 07/04/2021 14:32 Result Comment: LESS THAN 0.04 NG/ML: NEGATIVE REPEAT TESTING IN THREE TO SIX HOURS IF CLINICALLY INDICATED. 0.04 - 0.5 NG/ML: CONSISTENT WITH POSSIBLE CARDIAC DAMAGE AND POSSIBLE INCREASED CLINICAL RISK. SERIAL MEASUREMENTS MAY HELP ASSESS EXTENT OF MYOCARDIAL DAMAGE. >0.5 NG/ML: CONSISTENT WITH CARDIAC DAMAGE, INCREASED CLINICAL RISK AND MYOCARDIAL INFARCTION. SERIAL MEASUREMENTS MAY HELP ASSESS EXTENT OF MYOCARDIAL DAMAGE. . Note: Troponin I testing is performed using different testing methodology at [facility] than at other [facility]. Direct result comparisons should only be made within the same method. Bruce ODOM to [facility], 07/04/2021 14:32 Performed By: #### [facility] #### [facility] [address] [place], [place] [id number] Triage - EDon 07-04-2021 Triage - ED Chart Review: ARRIVAL INFORMATION Mode of Arrival: ambulance Agency Name: [place] CHIEF COMPLAINT HOSEA ALVAREZ is a Male patient with a chief complaint of chest pain. Other Complaints: pt. presents to the ED by squad for chest pressure. pt stated that he slept outside under a pavilion and then started to ride his bike and started to have chest discomfort. pt has a hx of thoracic aneurysm. pt. denies any SON, dizziness, N/V, fever and chills. Triage Date/Time: 04-Jul-2021 09:41 WILMAN: 2 Pain Rating (0-10): 5 = Moderate Pain location: L side chest Vital Signs: Temperature: 97.2F ( 36.2C) taken temporal Blood Pressure: 152/82 Mean: Heart Rate: 65 Respiratory Rate: 18 Pulse Oximetry: 98% on room air, no respiratory support. Height: 5 feet 6.00 inches. 167.6 CM Weight: 189.5 pounds. Calculated 86.0 kg. Calculated BMI (kg/m2): 30.616 Calculated BSA (m2) 2.00 Lynda Coma Scale: Best Eye Response: (E4) spontaneous Best Motor Response: (M6) obeys commands Best Verbal Response: (V5) oriented [place] Score: 15 Cough lasting greater than 3 weeks: no Allergies: no Patient has homicidal thoughts: no Risk Screens Suicide Risk Screen In the Past Month: Have you wished you were or wished you could go to sleep and not wake up no In the Past Month: Have you had any actual thoughts of killing yourself no In Your Lifetime: Have you ever done anything, started to do anything, or prepared to do anything to end your life no Molina Fall Scale Screening Has the patient fallen before (or is the patient in the ED as a result of a fall) has not had a fall Does the patient have an impaired gait does not have impaired gait Is the patient cognitively impaired not cognitively impaired Interventions: Molina Fall Interventions: LOW INTERVENTIONS: *patient oriented to surroundings and call system, * patient/family falls education completed and documented, *patients fall status communicated during bedside handoff, *whiteboard updated, *mode of toileting discussed with patient, *bed in low position with brakes locked, *call light in reach, * non-skid footwear TRAVEL HISTORY Travel History Coronavirus Screening: no exposure or symptoms Travel Exposure History: NO travel to International locations in the past 30 days PAIN Pain Scale Used: SHANNON Pain Rating (0-10): 5 = Moderate Past Medical History: Past Medical History Reviewedyes Electronic Signatures: Irving Guerrero ([place]) (Signed 04-Jul-2021 09:50) Authored: Quick Triage, Risk Screens, Pain, Travel History, Chart Review, Scores, Past Medical History Last Updated: 04-Jul-2021 09:50 by Irving Guerrero ([place]NN) Normal [facility] Troponin I, Serumon 07-04-20 21 Troponin I.cardiac [Mass/Vol] Canceled -Pediatrics -[place] [address] Work Phone: Comment on above: LESS THAN 0.04 NG/ML : NEGATIVEREPEAT TESTING IN THREE TO SIX HOURSIF CLINICALLY INDICATED.0.04 - 0.5 NG/ML: CONSISTENT WITH POSSIBLECARDIAC DAMAGE AND POSSIBLE INCREASEDCLINICAL RISK.SERIAL MEASUREMENTS MAY HELP ASSESS EXTENT OFMYOCARDIAL DAMAGE.>0.5 NG/ML: CONSISTENT WITH CARDIAC DAMAGE,INCREASED CLINICAL RISK AND MYOCARDIALINFARCTION. SERIAL MEASUREMENTS MAY HELPASSESS EXTENT OF MYOCARDIAL DAMAGE..Note: Troponin I testing is performed using different testing methodology at [facility] than at other [facility]. Direct result comparisons should only be made within the same method. Troponin I.cardiac [Mass/Vol] 0.10 ng/mL Critically high See Below [facility] [address] Work Phone: Comment on above: Reference Range: 0.0 0 - 0.03LESS THAN 0.04 NG/ML: NEGATIVEREPEAT TESTING IN THREE TO SIX HOURSIF CLINICALLY INDICATED.0.04 - 0.5 NG/ML: CONSISTENT WITH POSSIBLECARDIAC DAMAGE AND POSSIBLE INCREASEDCLINICAL RISK.SERIAL MEASUREMENTS MAY HELP ASSESS EXTENT OFMYOCARDIAL DAMAGE.>0.5 NG/ML: CONSISTENT WITH CARDIAC DAMAGE,INCREASED CLINICAL RISK AND MYOCARDIALINFARCTION. SERIAL MEASUREMENTS MAY HELPASSESS EXTENT OF MYOCARDIAL DAMAGE..Note: Troponin I testing is performed using different testing methodology at [facility] than at other system hospitals. Direct result comparisons should only be made within the same method. Called troponin- RB to Jeff Laynechato , 07/04/2021 16:54 Troponin I.cardiac [Mass/Vol] 0.71 ng/mL Critically high See Below [facility] [address] Work Phone: Comment on above: Reference Range: 0.0 0 - 0.03LESS THAN 0.04 NG/ML: NEGATIVEREPEAT TESTING IN THREE TO SIX HOURSIF CLINICALLY INDICATED.0.04 - 0.5 NG/ML: CONSISTENT WITH POSSIBLECARDIAC DAMAGE AND POSSIBLE INCREASEDCLINICAL RISK.SERIAL MEASUREMENTS MAY HELP ASSESS EXTENT OFMYOCARDIAL DAMAGE.>0.5 NG/ML: CONSISTENT WITH CARDIAC DAMAGE,INCREASED CLINICAL RISK AND MYOCARDIALINFARCTION. SERIAL MEASUREMENTS MAY HELPASSESS EXTENT OF MYOCARDIAL DAMAGE..Note: Troponin I testing is performed using different testing methodology at [facility] than at other system hospitals. Direct result comparisons should only be made within the same method. Called- RB to Fareedrozina, 07/04/2021 14:32 Troponin I.cardiac [Mass/Vol] ng/mL Normal 0.00 - 0.03 [facility] [address] Work Phone: Comment on above: Reference Range: 0.0 0 - 0.03LESS THAN 0.04 NG/ML: NEGATIVEREPEAT TESTING IN THREE TO SIX HOURSIF CLINICALLY INDICATED.0.04 - 0.5 NG/ML: CONSISTENT WITH POSSIBLECARDIAC DAMAGE AND POSSIBLE INCREASEDCLINICAL RISK.SERIAL MEASUREMENTS MAY HELP ASSESS EXTENT OFMYOCARDIAL DAMAGE.>0.5 NG/ML: CONSISTENT WITH CARDIAC DAMAGE,INCREASED CLINICAL RISK AND MYOCARDIALINFARCTION. SERIAL MEASUREMENTS MAY HELPASSESS EXTENT OF MYOCARDIAL DAMAGE..Note: Troponin I testing is performed using different testing methodology at [facility] than at [facility]. Direct result comparisons should only be made within the same method. Result Comment: LESS THAN 0.04 NG/ML: NEGATIVE REPEAT TESTING IN THREE TO SIX HOURS IF CLINICALLY INDICATED. 0.04 - 0.5 NG/ML: CONSISTENT WITH POSSIBLE CARDIAC DAMAGE AND POSSIBLE INCREASED CLINICAL RISK. SERIAL MEASUREMENTS MAY HELP ASSESS EXTENT OF MYOCARDIAL DAMAGE. >0.5 NG/ML: CONSISTENT WITH CARDIAC DAMAGE, INCREASED CLINICAL RISK AND MYOCARDIAL INFARCTION. SERIAL MEASUREMENTS MAY HELP ASSESS EXTENT OF MYOCARDIAL DAMAGE. . Note: Troponin I testing is performed using different testing methodology at [facility] than at [facility]. Direct result comparisons should only be made within the same method. Performed By: #### T ROP2 ####[facility] [place], [place] [id number] Office Visit (Vascular Surge ry)on 06-28-2021 Follow-up visit Diagnoses/Problems Assessed Renal artery stenosis (440.1) (I70.1) Ascending aortic aneurysm (441.2) (I71.2) Bipolar 2 disorder (296.89) (F31.81) Patient Discussion/Summary Impression: tobacco smoking. Patient discussion: discussed with the patient, 3 minute visit, greater than half of the time was spent on counseling. Severe left renal artery stenosis Possible FMD Ascending aortic aneurysm, asymptomatic 4.4 cm - smoking and alcohol cessation encouraged - blood pressure management - aspirin 81 mg daily - we discussed the need for some sort of anesthetic during the procedure and he agreed - plan for left renal angiography with possible balloon angioplasty/stenting with Dr. Lott to prevent renal occlusion and renal impairment Provider Impressions Severe left renal artery stenosis Possible FMD Ascending aortic aneurysm, asymptomatic 4.4 cm - smoking and alcohol cessation encouraged - blood pressure management - aspirin 81 mg daily - we discussed the need for some sort of anesthetic during the procedure and he agreed - plan for left renal angiography with possible balloon angioplasty/stenting with Dr. Lott to prevent renal occlusion and renal impairment Chief Complaint The patient presents to the office today for a routine follow up exam. History of Present Illness 50 year old male with PMH of HTN, bipolar disorder, ascending aortic aneurysm and renal artery stenosis here for routine follow up. He has high grade stenosis at the proximal left renal artery with poststenotic dilation on recent CTA imaging. The right renal artery has a beading appearance with concern for FMD but has no known family history of FMD. Ascending aorta measures 4.4 cm. He takes three antihypertensives and his blood pressure today is 113/77. His most recent creatinine level was 1. He was scheduled to undergo a renal angiography with possible angioplasty/stenting a few months ago but had insurance approval issues. He is hesitant to submit to any sort of anesthesia. He bikes miles a day as this is his main mode of transportation. He has been evaluated in the emergency room almost weekly for the past few months with main complaints of chest pain and left arm numbness with mostly benign workups. SH: smokes 1 cigarette every few weeks, daily alcohol use Review of Systems All systems were reviewed and noted to be negative, other than described above. Active Problems Problems Acute back pain (724.5) (M54.9) Anemia (285.9) (D64.9) Ascending aortic aneurysm (441.2) (I71.2) Bipolar 2 disorder (296.89) (F31.81) Chest pain (786.50) (R07.9) Chronic bilateral low back pain without sciatica (724.2,338.29) (M54.5,G89.29) Constipation (564.00) (K59.00) Costochondritis (733.6) (M94.0) COVID-19 (079.89) (U07.1) Esophageal spasm (530.5) (K22.4) Essential hypertension (401.9) (I10) ETOH abuse (305.00) (F10.10) GERD (gastroesophageal reflux disease) (530.81) (K21.9) Palpitations (785.1) (R00.2) Pancytopenia (284.19) (D61.818) Renal artery stenosis (440.1) (I70.1) Screening for colorectal cancer (V76.51,V76.41) (Z12.11,Z12.12) Segmental and somatic dysfunction of lumbar region (739.3) (M99.03) Social History Problems Current smoker (305.1) (F17.200) ETOH abuse (305.00) (F10.10) Regular alcohol consumption (V69.8) (Z78.9) Allergies Medication Caffeine Chest Pain;; Recorded By: Neil Billings; 06/28/2021 9:27:50 AM Erythromycin TABS Adverse Reaction; Gatrointestinal upset; Updated By: Meagan Baugh; 02/22/2021 3:30:50 PM polyethylene glycol 3350 Gatrointestinal upset; Recorded By: Antonia Cuenca; 02/16/2021 10:12:41 AM Current Meds Medication NameInstruction cloNIDine HCl - 0.2 MG Oral TabletTAKE 1 TABLET 3 TIMES DAILY. Lidocaine Viscous HCl - 2 % Mouth/Throat Solutiontake one teaspoon and swish and spit four times a day as needed Losartan Potassium 50 MG Oral TabletTAKE 1 TABLET DAILY. Methocarbamol 500 MG Oral TabletTAKE 1 TABLET 3 TIMES DAILY. Metoprolol Succinate ER 25 MG Oral Tablet Extended Release 24 HourTAKE 1 TABLET DAILY. Nitroglycerin 0.4 MG Sublingual Tablet SublingualPLACE 1 TABLET UNDER THE TONGUE EVERY 5 MINUTES UP TO 3 DOSES NEEDED FOR CHEST PAIN (call 911 with 3rd dose). Suprep Bowel Prep Kit 17.5-3.13-1.6 GM/177ML Oral SolutionDILUTE CONTENTS AND USE DIRECTED FOR BOWEL PREP Vitals Vital Signs Recorded: 28Jun2021 09:34AMRecorded: 28Jun2021 09:32AM Idlqigof428, LUE, Rljfixl034, LUE, Sitting Ysbzcjauy03, LUE, Lmgumdy79, LUE, Sitting Heart Rate91 Wogmzrjaruz52 Height5 ft 6 in Igosji972 lb BMI Ipcdxojqvb39.47 kg/m2 BSA Calculated1.98 Tobacco Usea) Yes Fall Screeninga) No falls within the last year O2 Hqicbajryq14 Pain Scale0 Physical Exam Constitutional: Well developed and well nourished. In no acute distress Neuro: Grossly normal without focal deficits Eyes: PERRL, EOMI Neck: Supple. No carotid bruits noted Cardiac: RRR, no murmur Resp: Clear to ausc (more content not included)... Normal [employer] Tobacco Screening.on 021 Fall risk assessment a) No falls within the last year [facility] [address] Work Phone: Tobacco use status CPHS a) Yes [facility] [address] Work Phone: BA CTA ABDOMEN PELVIS WITH C ONT INCL NON CONT IMAGE W POST PROCon 06-26-2021 BA CTA ABDOMEN PELVIS WITH CONT INCL NON CONT IMAGE W POST PROC Patient Name: HOSEA ALVAREZ STUDY: CTA ABDOMEN PELVIS WITH CONT INCL NON CONT IMAGE W POST PROC; 06/26/2021 8:06 pm INDICATION: L acute pulsating groin pain x2 hours, h/o L renal artery stenosis, Lie Flat: Yes. COMPARISON: None. ACCESSION NUMBER(S): [id number] ORDERING CLINICIAN: BALTA MELO TECHNIQUE: Thin-section axial images of the abdomen and pelvis in the arterial phase after intravenous administration of 96 mL iodine contrast no immediate complication reported. Sagittal and coronal reconstructions. 3D reconstructions were obtained at a separate workstation. FINDINGS: Vascular: No aortic aneurysm or dissection. The inferior mesenteric artery are patent. Bilateral iliac artery internal iliac and external iliac and femoral artery and its proximal branches are patent. Tight stenosis, noted at the proximal left renal artery with poststenotic dilatation. Right renal artery is normal in caliber. Celiac trunk and superior mesenteric artery are patent. LOWER CHEST: No acute abnormality of the lung bases. Heart is borderline enlarged. There is reflux of the contrast material, noted within the IVC and hepatic vein. BONES: No acute osseous abnormality. ABDOMINAL WALL: Within normal limits. ABDOMEN: Limited evaluation of the abdominal viscera due to only arterial phase imaging for complete evaluation of subtle lesion. LIVER: Within normal limits. BILE DUCTS: Normal caliber. GALLBLADDER: Collapsed. PANCREAS: Within normal limits. SPLEEN: Within normal limits. ADRENALS: Within normal limits. KIDNEYS and URETERS: Symmetric renal enhancement. No hydronephrosis. Hyperenhancing exophytic 1.4 cm lesion in the inferior and posterior aspect of the right kidney, represent indeterminate. 2 nonenhancing lesion 2.9 cm in the left kidney and 1.9 cm in the right kidney representing cysts. RETROPERITONEUM: No pathologically enlarged retroperitoneal lymph nodes. PELVIS: REPRODUCTIVE ORGANS: No pelvic masses. BLADDER: Within normal limits. BOWEL: No dilated bowel. Normal appendix. PERITONEUM: No ascites or free air, no fluid collection. IMPRESSION: No acute vascular abnormality. Tight stenosis in the proximal left renal artery with poststenotic dilatation, known with the patient clinical history. Note made of reflux of the contrast medium in the IVC and hepatic vein, question right-sided heart dysfunction. Note made of an indeterminate 1.4 cm exophytic hyperenhancing lesion in the posterior and inferior aspect of the right kidney. Bilateral renal cysts. Incidental Findings (IF-CTRM): 1.4 cm exophytic hyperenhancing lesion in the posterior and inferior aspect of the right kidney, recommended further evaluation with the ultrasound 1st to exclude mass with differential including hemorrhage ache and proteinaceous cyst. The critical information above was relayed directly by me by telephone to BALTA MELO on 06/26/2021 at 8:52 pm with readback verification. Recommend further evaluation with ultrasound to exclude renal cancer. Electronically signed by: YUMI WATERS MD Normal [facility] CBC AND DIFFERENTIALon 06-26 % AUTOMATED IMMATURE GRAN 0.5 % Normal 0.0 - 0.9 [facility] Comment on above: Result Comment: Kath ture Granulocyte Count (IG) includes promyelocytes, myelocytes and metamyelocytes but does not include bands. Percent differential counts (%) should be interpreted in the context of the absolute cell counts (cells/L). Performed By: #### C BCDF #### [facility] [address] [place] [address] Basophils (Bld) [#/Vol] 0.01 10*3/uL Normal 0.00 - 0.10 [facility] Comment on above: Performed By: #### C BCDF #### [facility] [address] [place] [address] Basophils/100 WBC (Bld) 0.2 % Normal 0.0 - 2.0 [facility] Comment on above: Performed By: #### C BCDF #### [facility] [address] [place] [address] Eosinophils (Bld) [#/Vol] 0.09 10*3/uL Normal 0.00 - 0.70 [facility] Comment on above: Performed By: #### C BCDF #### [facility] [address] [place] [address] Eosinophils/100 WBC (Bld) 2.1 % Normal 0.0 - 6.0 [facility] Comment on above: Performed By: #### C BCDF #### [facility] [address] [place] [address] Erythrocyte distribution width (RBC) [Ratio] 12.9 % Normal 11.5 - 14.5 [facility] Comment on above: Performed By: #### C BCDF #### [facility] [address] [place] [address] Hematocrit (Bld) [Volume fraction] 38.4 % Low 41.0 - 52.0 [facility] Comment on above: Performed By: #### C BCDF #### [facility] [address] [place] [address] Hemoglobin (Bld) [Mass/Vol] 12.2 g/dL Low 13.5 - 17.5 [facility] Comment on above: Performed By: #### C BCDF #### [facility] [address] [place] [address] Lymphocytes (Bld) [#/Vol] 0.86 10*3/uL Low 1.20 - 4.80 [facility] Comment on above: Performed By: #### C BCDF #### [facility] [address] [place] [address] Lymphocytes/100 WBC (Bld) 20.0 % Normal 13.0 - 44.0 [facility] Comment on above: Performed By: #### C BCDF #### [facility] [address] [place] [address] MCHC (RBC) [Mass/Vol] 31.8 g/dL Low 32.0 - 36.0 [facility] Comment on above: Performed By: #### C BCDF #### [facility] [address] [place] [address] MCV (RBC) [Entitic vol] 86 fL Normal 80 - 100 [facility] Comment on above: Performed By: #### C BCDF #### [facility] [address] [place] [address] Monocytes (Bld) [#/Vol] 0.40 10*3/uL Normal 0.10 - 1.00 [facility] Comment on above: Performed By: #### C BCDF #### [facility] [address] [place] [address] Monocytes/100 WBC (Bld) 9.3 % Normal 2.0 - 10.0 [facility] Comment on above: Performed By: #### C BCDF #### [facility] [address] [place] [address] Neutrophils (Bld) [#/Vol] 2.91 10*3/uL Normal 1.20 - 7.70 [facility] Comment on above: Performed By: #### C BCDF #### [facility] [address] [place] [address] Neutrophils/100 WBC (Bld) 67.9 % Normal 40.0 - 80.0 [facility] Comment on above: Performed By: #### C BCDF #### [facility] [address] [place] [address] NUCLEATED RBC 0.0 /100 WBC Normal 0.0-0.0 [facility] Comment on above: Performed By: #### C BCDF #### [facility] [address] [place] [address] Platelets (Bld) [#/Vol] 149 10*3/uL Low 150 - 450 [facility] Comment on above: Performed By: #### C BCDF #### [facility] [address] [place] [address] RBC 4.44 x10E12/L Low 4.50 - 5.90 [facility] Comment on above: Performed By: #### C BCDF #### [facility] [address] [place] [address] WBC (Bld) [#/Vol] 4.3 10*3/uL Low 4.4 - 11.3 [facility] Comment on above: Performed By: #### C BCDF #### [facility] [address] [place] [address] COMPREHENSIVE PANELon 2020 Albumin [Mass/Vol] 4.0 g/dL Normal 3.4 - 5.0 [facility] Comment on above: Performed By: #### C MP #### [facility] [address] [place] [address] ALP [Catalytic activity/Vol] 53 U/L Normal 33 - 120 [facility] Comment on above: Performed By: #### C MP #### [facility] [address] [place] [address] ALT [Catalytic activity/Vol] 25 U/L Normal 10 - 52 [facility] Comment on above: Result Comment: Yanni ents treated with Sulfasalazine may generate falsely decreased results for ALT. Performed By: #### C MP #### [facility] [address] [place] [address] Anion gap [Moles/Vol] 12 mmol/L Normal 10 - 20 [facility] Comment on above: Performed By: #### C MP #### [facility] [address] [place] [address] AST [Catalytic activity/Vol] 22 U/L Normal 9 - 39 [facility] Comment on above: Performed By: #### C MP #### [facility] [address] [place] [address] Bilirubin [Mass/Vol] 0.3 mg/dL Normal 0.0 - 1.2 [facility] Comment on above: Performed By: #### C MP #### [facility] [address] [place] [address] Calcium [Mass/Vol] 9.3 mg/dL Normal 8.6 - 10.6 [facility] Comment on above: Performed By: #### C MP #### [facility] [address] [place] [address] Chloride [Moles/Vol] 103 mmol/L Normal 98 - 107 [facility] Comment on above: Performed By: #### C MP #### [facility] [address] [place] [address] Creatinine [Mass/Vol] 1.03 mg/dL Normal 0.50 - 1.30 [facility] Comment on above: Performed By: #### C MP #### [facility] [address] [place] [address] GFR- AM. >60 Normal >60 [facility] Comment on above: Result Comment: CALC ULATIONS OF ESTIMATED GFR ARE PERFORMED USING THE MDRD STUDY EQUATION FOR THE IDMS-TRACEABLE CREATININE METHODS. CLIN CHEM 2007;53:766-72 Performed By: #### C MP #### [facility] [address] [place] [address] GFR-NON AM. >60 Normal >60 [facility] Comment on above: Performed By: #### C MP #### [facility] [address] [place] [address] Glucose [Mass/Vol] 86 mg/dL Normal 74 - 99 [facility] Comment on above: Performed By: #### C MP #### [facility] [address] [place] [address] HCO3 (Bld) [Moles/Vol] 26 mmol/L Normal 21 - 32 [facility] Comment on above: Performed By: #### C MP #### [facility] [address] [place] [address] Potassium [Moles/Vol] 4.1 mmol/L Normal 3.5 - 5.3 [facility] Comment on above: Performed By: #### C MP #### [facility] [address] [place] [address] Protein [Mass/Vol] 6.8 g/dL Normal 6.4 - 8.2 [facility] Comment on above: Performed By: #### C MP #### [facility] [address] [place] [address] Sodium [Moles/Vol] 137 mmol/L Normal 136 - 145 [facility] Comment on above: Performed By: #### C MP #### [facility] [address] [place] [address] Urea nitrogen [Mass/Vol] 21 mg/dL Normal 6 - 23 [facility] Comment on above: Performed By: #### C MP #### [facility] [address] [place] [address] CT Angio Abdomen Pelvis with Contrast including non cont Image with Post Procedureon 06-26-2021 CT Abdomen and Pelvis and CT angiogram Abdominal aorta W contrast IV Normal [facility] Work Phone: Complete Blood Count + Diffe rentialon 06-26-2021 Basophils/100 WBC (Bld) 0.2 % 0.0 - 2.0 [facility] Work Phone: Erythrocyte distribution width (RBC) [Ratio] 12.9 % See Below [facility] Work Phone: Comment on above: Reference Range: 11. 5 - 14.5 Hematocrit (Bld) [Volume fraction] 38.4 % below low threshold See Below [facility] Work Phone: Comment on above: Reference Range: 41. 0 - 52.0 Hemoglobin (Bld) [Mass/Vol] 12.2 g/dL below low threshold See Below [facility] Work Phone: Comment on above: Reference Range: 13. 5 - 17.5 Lymphocytes/100 WBC (Bld) 20.0 % See Below [facility] Work Phone: Comment on above: Reference Range: 13. 0 - 44.0 MCHC (RBC) [Mass/Vol] 31.8 g/dL below low threshold See Below [facility] Work Phone: Comment on above: Reference Range: 32. 0 - 36.0 MCV (RBC) [Entitic vol] 86 fL 80 - 100 [facility] Work Phone: Monocytes/100 WBC (Bld) 9.3 % 2.0 - 10.0 [facility] Work Phone: Neutrophils/100 WBC (Bld) 67.9 % See Below [facility] Work Phone: Comment on above: Reference Range: 40. 0 - 80.0 Platelets (Bld) [#/Vol] 149 10*3/uL below low threshold 150 - 450 [facility] Work Phone: RBC (Bld) [#/Vol] 4.44 {x10E12/L} below low threshold See Below [facility] Work Phone: Comment on above: Reference Range: 4.5 0 - 5.90 WBC (Bld) [#/Vol] 4.3 10*3/uL below low threshold 4.4 - 11.3 [facility] Work Phone: Complete Blood Count + Differential 0.01 {x10E9/L} See Below [facility] Work Phone: Comment on above: Reference Range: 0.0 0 - 0.10 Complete Blood Count + Differential 0.09 {x10E9/L} See Below [facility] Work Phone: Comment on above: Reference Range: 0.0 0 - 0.70 Complete Blood Count + Differential 0.40 {x10E9/L} See Below [facility] Work Phone: Comment on above: Reference Range: 0.1 0 - 1.00 Complete Blood Count + Differential 0.86 {x10E9/L} below low threshold See Below [facility] Work Phone: Comment on above: Reference Range: 1.2 0 - 4.80 Complete Blood Count + Differential 2.91 {x10E9/L} See Below [facility] Work Phone: Comment on above: Reference Range: 1.2 0 - 7.70 Complete Blood Count + Differential 2.1 % 0.0 - 6.0 [facility] Work Phone: Complete Blood Count + Differential 0.5 % 0.0 - 0.9 [facility] Work Phone: Comment on above: Immature Granulocyte Count (IG) includes promyelocytes, myelocytes and metamyelocytes but does not include bands. Percent differential counts (%) should be interpreted in the context of the absolute cell counts (cells/L). Complete Blood Count + Differential 0.0 {/100_WBC} 0.0-0.0 [facility] [place] Work Phone: Laboratory - Chemistry and C hemistry - challengeon 06-26-2021 Albumin BCP dye [Mass/Vol] 4.0 g/dL 3.4 - 5.0 [facility] [place] Work Phone: ALP [Catalytic activity/Vol] 53 U/L 33 - 120 [facility] [place] Work Phone: ALT With P-5'-P [Catalytic activity/Vol] 25 U/L 10 - 52 [facility] [place] Work Phone: Comment on above: Patients treated wit h Sulfasalazine may generate falsely decreased results for ALT. Anion gap [Moles/Vol] 12 mmol/L 10 - 20 [facility] Work Phone: AST With P-5'-P [Catalytic activity/Vol] 22 U/L 9 - 39 [facility] Work Phone: Bilirubin [Mass/Vol] 0.3 mg/dL 0.0 - 1.2 [facility] [place] Work Phone: Calcium [Mass/Vol] 9.3 mg/dL 8.6 - 10.6 [facility] [place] Work Phone: Chloride [Moles/Vol] 103 mmol/L 98 - 107 [facility] [place] Work Phone: CO2 [Moles/Vol] 26 mmol/L 21 - 32 [facility] [place] Work Phone: Creatinine [Mass/Vol] 1.03 mg/dL See Below [facility] Work Phone: Comment on above: Reference Range: 0.5 0 - 1.30 Glucose [Mass/Vol] 86 mg/dL 74 - 99 [facility] Work Phone: Potassium [Moles/Vol] 4.1 mmol/L 3.5 - 5.3 [facility] Work Phone: Protein [Mass/Vol] 6.8 g/dL 6.4 - 8.2 [facility] Work Phone: Sodium [Moles/Vol] 137 mmol/L 136 - 145 [facility] Work Phone: Urea nitrogen [Mass/Vol] 21 mg/dL 6 - 23 [facility] Work Phone: [facility] [email or web address] [email or web address] te=[email or web address]&Time=21%3a 34%3a04%3a00&TestType=EC G&Site=1&OutputType=PDF& Ext=PDF [facility] Work Phone: [phone] Please see ED Provid er Note for formal interpretation [facility] Work Phone: [phone] Normal [facility] Work Phone: [phone] [facility] Work Phone: [phone] [facility] Work Phone: [phone] [facility] Work Phone: [phone] [facility] Work Phone: [phone] 1 [facility] Work Phone: 11 1 [facility] Work Phone: 2 1 [facility] Work Phone: -5 1 [facility] Work Phone: 37 1 [facility] Work Phone: [phone] [facility] Work Phone: [phone] [facility] Work Phone: 100 1 [facility] Work Phone: [phone] [facility] Work Phone: 66 1 [facility] Work Phone: >60 >60 [facility] Work Phone: Comment on above: CALCULATIONS OF NIKOLE MATED GFR ARE PERFORMED USING THE MDRD STUDY EQUATION FOR THE IDMS-TRACEABLE CREATININE METHODS. CLIN CHEM 2007;53:766-72 Provider Note - ED v3on 10-0 Provider Note - ED v3 Provider Note: Chart Review: ED NOTES ED NOTES: HPI Patient is a 50yo M with PMH of left renal artery stenosis, bipolar 2, PTSD, AAA (4.4 cm 04/2021) presenting for 2 hours of left groin pulsating pain. Patient states he was just sitting when he started feeling a pulsation in his L. groin region and perineum. He said this is never happened before and it is non-radiating. He did not try anything to help the pain. Pain is non-radiating and he states that he is concerned that it may be related to his vasculature given his renal artery stenosis history. Patient reports pain and left lower abdominal quadrant 2 days ago, for which he went to the ED. 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 Patient states last bowel movement was 2 days ago. States he takes docusate, prune juice, fiber which helps his bowel movements. He states that he was supposed to have a stent placement with vascular surgery but postponed due to being anxious. Patient denies fevers, chills, nausea, vomiting, CP, SOB, numbness or tingling in his extremities. Patient denies any trauma or falls. Patient denies any dysuria, hematuria, but does report increase urination over last 2 days. ROS A complete 12-point review of systems was performed and is otherwise negative, except as noted in HPI. PMHx/PSHx: Reviewed, documented below per EMR. FamHx: Reviewed, noncontributory to patients presenting complaint. SocHx: Endorses 1 beer daily, denies tobacco, illicit drugs. Allergies: Reviewed, documented below per EMR. Medications: Reviewed, documented below per EMR. HPI provided by: patient, patient diagnosed with proctalgia MRI in the setting of chronic constipation. Patient states last bowel movement was 2 days ago. States he takes docusate, prune juice, fiber which helps his bowel movements. Physical Examination Vital signs reviewed in nursing triage note, on EMR flow sheets, and at bedside. GEN: Well-developed, well nourished, in no apparent distress. SKIN: Warm, dry, intact. No gross rashes or lesions. EYES: Pupils equal, round, reactive to light. EOM grossly intact. Conjunctiva clear. HENT: Normocephalic, atraumatic, mucous membranes moist. NECK: Supple, trachea midline. CV: RRR, normal S1, S2. No murmurs, rubs, gallops. Pulses 2+ in all four extremities. PULM: Breathing nonlabored on room air, speaks in full sentences. Lungs CTAB. GI: Abd soft, nontender, nondistended. No rebound or guarding. : Normal external genitalia, BL descended testicles, no pain with elevation of testicles. No hernias. + pain with palpation over perineum EXT: Symmetric muscle bulk, moves all equally. No pedal edema. WWP. NEURO: Alert, answers questions appropriately, follows commands, CN II-XII grossly intact, no gross focal deficits. PSYCH: Appropriate mood and affect. Inspector Aligning: BROOKLYNN Wilson ED Course/MDM Results: Labs and imaging were ordered for further characterization of the patient's clinical presentation. See section(s) entitled Lab Results, Diagnostic Imaging Results Review for entirety. Notable results listed in MDM. EKG: P 66, NSR, QTc 402, no ST changes or T wave inversions Medical Decision Making/ Assessment 50yo M with PMH of left renal artery stenosis, bipolar 2, PTSD, AAA (4.4 cm) presenting for 2 hours of L groin pulsating pain. VSS and physical exam reassuring without lesions, inflammation, erythema, fluctuation, although with discomfort over perinium and left groin. Patient non-toxic appearing on exam. Differentials include UTI versus renal stones vs. referred pain in setting of constipation versus referred pain in setting of Renal artery stenosis vs. progressing AAA. WIll obtain CBC, CMP, UA, and CTA AP to evaluate stenosis. UPDATE: CBC with chronic pancytopenia likely in setting of daily ETOH use. CMP benign and UA without evidence of UTI or blood. CTA AP without acute findings. Known L proximal renal artery stenosis with post-stenotic dilatation, but no acute vascular abnormalities. Also noted to have reflux of contrast into IVC and hepatic vein, may be 2/2/ RH dysfunction. Indeterminate 1.4cm exophytic hyperenhancing lesion in posterior and inferior aspect of the right kidney. Known BL kidney cysts. Recommended ultrasound to exclude mass. Discussed findings with patient. Patient's symptoms of unclear etiology but may be more so in setting of muscle strain from riding bike often vs. referred pain in setting of constipation. Urged patient to f/u with PCP with 2-3 days for renal findings and Vascular surgery for known L. renal artery stenosis. Patient requested IVF as reports he tends to get GI upset after contrast, thus 500cc IVF bolus given. During discussion, patient began complaining of burning esophageal pain, which he states is similar to his esophageal spasms. Per chart review EGD done in past and normal. Yanni (more content not included)... Normal [facility] Risk Screen - Adult Emergenc yon 06-26-2021 Risk Screen - Adult Emergency Preferred Language: Preferred Language: Preferred Language for Discussing Health Care (patient/designee)Fran villalta Advanced Directives: Advance Directive/DNRno Family Violence Adult: Abuse Screen: Are you or have you been threatened or abused physically, emotionally, or sexually by anyoneno Learning Assessment (Patient): Learning Assessment (Patient): Patient is Able to be Assessed for Learningyes Factors Influencing Readiness to Learninterest in learning; motivation to learn; pain Factors that Impact Ability to Learnnone Devices/Methods Used to Communicatenone Learning Preferenceswritten material; verbal instruction Cultural Considerationsnone Developmental Considerationsnone Zoroastrian Considerationsnone Learning Assessment (Other Learner): Learning Assessment (Other Learner): Other learner availableno Pressure Injury/TB/Substance: Pressure Injury: Pressure Injury Present on Admissionno Do you have a coughno Smoking Statusnever smoker Alcohol Usedenies Drug Usedenies Drug 2 Usedenies Admission Risk Screen: Significant IndicatorsComplete CAGE: CAGE: Is this an injured patient at a Trauma Center ([facility]/[place] /[place]): no Electronic Signatures: Tamika Mckinley (BROOKLYNN) (Signed 26-Jun-2021 20:52) Authored: Preferred Language, Advanced Directives, Family Violence Adult, Learning Assessment (Patient), Learning Assessment (Other Learner), Pressure Injury/TB/Substance, Pressure Injury, CAGE Last Updated: 26-Jun-2021 20:52 by Tamika Mckinley (BROOKLYNN) Normal [facility] Triage - EDon 06-26-2021 Triage - ED Chart Review: ARRIVAL INFORMATION Mode of Arrival: ambulance Agency Name: [facility] CHIEF COMPLAINT HOSEA ALVAREZ is a Male patient with a chief complaint of groin pain. Other Complaints: 1 hour of groin pain, no urinary pain. Triage Date/Time: 26-Jun-2021 14:46 WILMAN: 3 Vital Signs: Temperature: 97.8F ( 36.6C) taken temporal Blood Pressure: 122/74 Mean: Heart Rate: 89 Respiratory Rate: 16 Pulse Oximetry: 96% on room air, no respiratory support. Height: 5 feet 9.00 inches. 175.2 CM Weight: 167.5 pounds. Calculated 76.0 kg. (stated) Calculated BMI (kg/m2): 24.759 Calculated BSA (m2) 1.92 Lynda Coma Scale: Best Eye Response: (E4) spontaneous Best Motor Response: (M6) obeys commands Best Verbal Response: (V5) oriented [place] Score: 15 Lynda Assessment Qualifiers: patient not sedated/intubated Allergies: no Patient has homicidal thoughts: no Risk Screens Suicide Risk Screen In the Past Month: Have you wished you were or wished you could go to sleep and not wake up no In the Past Month: Have you had any actual thoughts of killing yourself no In Your Lifetime: Have you ever done anything, started to do anything, or prepared to do anything to end your life no Molina Fall Scale Screening Has the patient fallen before (or is the patient in the ED as a result of a fall) has not had a fall Does the patient have an impaired gait does not have impaired gait Is the patient cognitively impaired not cognitively impaired Interventions: Molina Fall Interventions: LOW INTERVENTIONS: *patient oriented to surroundings and call system, * patient/family falls education completed and documented, *patients fall status communicated during bedside handoff, *whiteboard updated, *mode of toileting discussed with patient, *bed in low position with brakes locked, *call light in reach, * non-skid footwear TRAVEL HISTORY Travel History Coronavirus Screening: no exposure or symptoms Travel Exposure History: NO travel to International locations in the past 30 days PAIN Pain Scale Used: SHANNON Past Medical History: Past Medical History Reviewedyes Electronic Signatures: Melania Morataya (BROOKLYNN) (Signed 26-Jun-2021 14:51) Authored: Quick Triage, Risk Screens, Pain, Travel History, Chart Review, Scores, Past Medical History Last Updated: 26-Jun-2021 14:51 by Melania Morataya (BROOKLYNN) Normal [facility] URINALYSISon 06-26-2021 Appearance (U) CLEAR Normal CLEAR [facility] Comment on above: Performed By: #### U A #### [facility] [address] [place] [address] Bilirubin Ql (U) Negative Normal NEGATIVE [facility] Comment on above: Performed By: #### U A #### [facility] [address] [place] [address] Color (U) STRAW Normal STRAW,YELLOW [facility] Comment on above: Performed By: #### U A #### [facility] [address] [place] [address] Glucose Ql (U) Negative Normal NEGATIVE [facility] Comment on above: Performed By: #### U A #### [facility] [address] [place] [address] Hemoglobin Ql (U) Negative Normal NEGATIVE [facility] [place] Comment on above: Performed By: #### U A #### [facility] [address] [place] [address] Ketones Ql (U) Negative Normal NEGATIVE [facility] Comment on above: Performed By: #### U A #### [facility] [address] [place] [address] Leukocyte esterase Test strip Ql (U) Negative Normal NEGATIVE [facility] Comment on above: Performed By: #### U A #### [facility] [address] [place] [address] Nitrite Ql (U) Negative Normal NEGATIVE [facility] Comment on above: Performed By: #### U A #### [facility] [address] [place] [address] pH (U) 6.0 [pH] Normal 5.0 - 8.0 [facility] Comment on above: Performed By: #### U A #### [facility] [address] [place] [address] Protein Ql (U) Negative Normal NEGATIVE [facility] Comment on above: Performed By: #### U A #### [facility] [address] [place] [address] Specific gravity (U) [Rel density] 1.011 Normal 1.005 - 1.035 [facility] Comment on above: Performed By: #### U A #### [facility] [address] [place] [address] Urobilinogen (U) [Mass/Vol] mg/dL Normal 0.0 - 1.9 [facility] Comment on above: Performed By: #### U A #### [facility] [address] [place] [address] Urinalysison 06-26-2021 Color (U) STRAW See Below [facility] Work Phone: Comment on above: Reference Range: STR AW,YELLOW Glucose Ql (U) Negative NEGATIVE [facility] Work Phone: Ketones Ql (U) Negative NEGATIVE [facility] [place] Work Phone: Leukocyte esterase Test strip Ql (U) Negative NEGATIVE [facility] [place] Work Phone: pH (U) 6.0 [pH] 5.0 - 8.0 [facility] [place] Work Phone: Protein (U) [Mass/Vol] Negative NEGATIVE [facility] [place] Work Phone: RBC (U) [#/Vol] Negative NEGATIVE [facility] [place] Work Phone: Specific gravity (U) [Rel density] 1.011 1 See Below [facility] [place] Work Phone: Comment on above: Reference Range: 1.0 05 - 1.035 Urinalysis Negative NEGATIVE [facility] [place] Work Phone: Urinalysis <2.0 0.0 - 1.9 [facility] [place] Work Phone: Urinalysis CLEAR CLEAR [facility] [place] Work Phone: Office Visit (Internal Medic ine)on 06-23-2021 Follow-up visit Diagnoses/Problems Assessed Bipolar 2 disorder (296.89) (F31.81) Costochondritis (733.6) (M94.0) Essential hypertension (401.9) (I10) Ascending aortic aneurysm (441.2) (I71.2) Palpitations (785.1) (R00.2) Pancytopenia (284.19) (D61.818) Renal artery stenosis (440.1) (I70.1) Orders Costochondritis Start: Methocarbamol 500 MG Oral Tablet; TAKE 1 TABLET 3 TIMES DAILY Rx By: Viral Amado; Dispense: 7 Days ; #:21 Tablet; Refill: 0;For: Costochondritis; JOSE = N; Verified Transmission to [id number]; Last Updated By: System, [employer]; 06/23/2021 8:24:51 AM [facility] Referral Evaluation and Treatment Evaluate AND Treat Status: Hold For - Scheduling Requested for: 23Jun2021 Ordered;For: Costochondritis; Ordered By: Viral Amado Performed: Due: [id number] Provider Impressions Patient is a 50-year-old male with past medical history of ascending aortic aneurysm, esophageal spasm, benign essential hypertension, pancytopenia, unilateral renal artery stenosis presents to discuss ongoing medical issues. His ongoing care is very difficult considering he has complicated medical conditions that are further type complicated by his social surroundings, and the fact that he moves between cities and by the fact that his care is being delivered by entirely different geographical areas in [place] (which is unusual). Of note he has been to multiple ERs including the [place] emergency room [facility] emergency room , [facility] emergency room for similar complaints and similar work-ups which have for the most part been benign without ever being admitted. ACS has been ruled out has been evaluated by cardiology and no obvious cardiac etiologies have been determined. He also has been evaluated by gastroenterology with recommendation for upper EGD to further evaluate the chest pains and dysphagia however patient has not scheduled it as of yet. Explained to the patient that we can help facilitate care but he needs to follow-up with his specialists I explained to him that as his primary care doctor he can come for appointments for nonurgent reasons and we can evaluate his noncardiac chest pain so that he does not have to utilize the emergency room is as frequently as he does. Explained that if he wants me to be his primary care doctor we would need to see each other on a regular basis. If he continues to move around and utilize medical services on an ongoing convenience care basis then it is very difficult to manage his symptoms. [facility] is deferring at this time. We will refill methocarbamol for his ongoing anterior chest pain related to costochondritis. Explained that if he needs an appointment he can always contact the office for appointments Thoracic aortic aneurysm 4.4 CM Encouraged follow-up with vascular medicine Bipolar 2 disorder Unclear diagnosis and he is not on any medications for this Patient states that he is established with a psychiatrist at the [facility] however he cannot tell me her name. There does not appear to be any medications in the system related to his psychiatric diagnosis Pancytopenia Patient will benefit from upper endoscopy and possible lower endoscopy This possibly related to EtOH intake Advised cessation Consider hematology referral Alcohol abuse He states that he is cut back to 1 beer daily Advised complete cessation Not interested in addictive recovery services The alcohol may explain the pancytopenia Renal artery stenosis unilateral Continue losartan Please follow-up with vascular medicine Please follow-up 2 weeks 4.4 and centimeters Chief Complaint F/u to hospital stay/complaining of chest pain History of Present IllnessPatient is a 50-year-old male with past medical history of ascending aortic aneurysm, esophageal spasm, benign essential hypertension, pancytopenia, unilateral renal artery stenosis presents for follow-up from recent ER visit. Patient is a complicated individual with bipolar disorder. He has been going to the emergency room presents for noncardiac chest pain over and over again. He has scans and labs and repeat testing almost every week. He presents today with his typical right sided anterior chest pain due to costochondritis. Every time he goes to the emergency room is always a slight variation of the same cardiac chest pain. He also has an ascending aortic aneurysm which he is concerned is causing the pain which makes him scared which results in another ER visit. He states that he has established with a psychiatrist at the [facility] but is not currently on any medications. Spent a significant amount of time explaining the value of a primary care doctor and that if he has nonurgent complaints he can schedule an appointment so that we can assess him in the office so that he does not have to go to the emergency room. When discussing this he comes up with many excuses as to why he cannot schedule a primary care doctor kalyani (more content not included)... Normal [employer] Tobacco Screening.on 021 Fall risk assessment a) No falls within the last year [facility] Work Phone: Tobacco use status [facility] b) No [employer] Work Phone: [employer] Flowsheeton [employer] Flowsheet Sodium, Low [facility] Work Phone: [employer] Flowsheet Healthy Eating [facility] Work Phone: [employer] Flowsheet GERD, anemia [facility] Work Phone: [phone] [employer] Flowsheet NKFA, but chocolate and caffeine cause stomach issues [facility] Work Phone: [phone] [employer] Flowsheet _1 family member [facility] Work Phone: [phone] [facility] [employer] Flowsheet Vitamins and Minerals [facility] Work Phone: [phone] [facility] [employer] Flowsheet 0-25% whole [facility] Work Phone: [phone] [employer] Flowsheet 0-25% fresh [facility] Work Phone: [phone] [employer] Flowsheet 75%-100% fresh [facility] Work Phone: [phone] [facility] [employer] Flowsheet 0 plant-based items [facility] Work Phone: [phone] [facility] [employer] Flowsheet 0-25% lowfat [facility] Work Phone: [phone] [employer] Flowsheet XAVIER [facility] Work Phone: [phone] [facility] Flowsheet At hospital frequently, has visted office multiple times. Prefers to eat Kosher when he can [facility] Work Phone: [phone] No Panel Informationon 06-21 [facility] Work Phone: [phone] [email or web address] {[email or web address]} [facility] Work Phone: Order Reconciliationon 06-21 Order Reconciliation Page 1 Discharge Reconciliation Document Reconciliation Type: Discharge requested on behalf of Jose Vela (Fellow) done by Jose Vela ( (Fellow)) Discharge - Reconciliation: 21-Jun-2021 08:15 by: Jose Vela ( (Fellow)) Home Medications EnteredHOME MEDICATIONS AT DISCHARGE DateReconciliation Comment/ Additional Information cloNIDine 0.1 mg oral tablet 1 tab(s) orally once a day, 07-Jun-2021 14:07 cloNIDine 0.1 mg oral tablet 1 tab(s) orally once a day, 07-Jun-2021 14:07 cloNIDine 0.1 mg oral tablet is continued as cloNIDine 0.1 mg oral tablet losartan 50 mg oral tablet 1 tab(s) orally once a day 13-Feb-2021 10:31 losartan 50 mg oral tablet 1 tab(s) orally once a day 13-Feb-2021 10:31 losartan 50 mg oral tablet is continued as losartan 50 mg oral tablet metoprolol succinate 25 mg oral tablet, extended release 1 tab(s) orally once a day 07-Jun-2021 14:08 metoprolol succinate 25 mg oral tablet, extended release 1 tab(s) orally once a day 07-Jun-2021 14:08 metoprolol succinate 25 mg oral tablet, extended release is continued as metoprolol succinate 25 mg oral tablet, extended release metoprolol tartrate 25 mg oral tablet 1 tab(s) orally once a day 03-Jun-2021 00:45 metoprolol tartrate 25 mg oral tablet 1 tab(s) orally once a day 03-Jun-2021 00:45 metoprolol tartrate 25 mg oral tablet is continued as metoprolol tartrate 25 mg oral tablet pantoprazole 40 mg oral delayed release tablet 1 tab(s) orally once a day 17-Apr-2021 10:58 pantoprazole 40 mg oral delayed release tablet 1 tab(s) orally once a day 17-Apr-2021 10:58 pantoprazole 40 mg oral delayed release tablet is continued as pantoprazole 40 mg oral delayed release tablet All Active Home Medications at time of Discharge Reconciliation: 21-Jun-2021 08:15 cloNIDine 0.1 mg oral tablet 1 tab(s) orally once a day, losartan 50 mg oral tablet 1 tab(s) orally once a day metoprolol succinate 25 mg oral tablet, extended release 1 tab(s) orally once a day metoprolol tartrate 25 mg oral tablet 1 tab(s) orally once a day pantoprazole 40 mg oral delayed release tablet 1 tab(s) orally once a day Normal [facility] IO UA (automated w/o microsc opy)on 06-20-2021 Protein (U) [Mass/Vol] Negative [facility] Work Phone: IO UA (automated w/o microscopy) Negative [facility] Work Phone: IO UA (automated w/o microscopy) Normal (0.2-1.0 mg/dl) [facility] Work Phone: IO UA (automated w/o microscopy) 5.5 1 [facility] Work Phone: IO UA (automated w/o microscopy) 1.025 1 [facility] Work Phone: IO UA (automated w/o microscopy) Clear [facility] Work Phone: IO UA (automated w/o microscopy) Yellow [facility] Work Phone: Laboratory - Microbiology an d Antimicrobial susceptibilityon 06-20-2021 FLUAV RNA TATI+probe Ql (Nph) FLU A by PCR NEGATIVE (Reference Range: not available) [facility] FLUBV RNA TATI+probe Ql (Nph) FLU B by PCR NEGATIVE (Reference Range: not available) [facility] SARS-CoV-2 (COVID-19) RNA TATI+probe Ql (Unsp spec) SARS-CoV-2 by PCR NEGATIVE (NEG ) [facility] Office Visit (Urgent Care)on 06-20-2021 Follow-up visit Orders Palpitations IO EKG Electrocardiogram- 12 Lead; Status:Active - Perform Order,Retrospective Authorization; Requested for:[id number]; Perform:In Office; Due:[id number]; Last Updated By:Marianne Breen; 06/20/2021 2:04:28 PM;Ordered; For:Palpitations; Ordered By:Kay Kim; Patient Discussion/Summary Increase your methocarbamol three times a day for three days. Chief Complaint Chief Complaints Palpitations lower back pain History of Present Illnessyesterday, new pain in the left lower and right lower back history of renal artery stenosis no injury hurts to move, worse with standing and walking no numbness, tingling or weakness in the legs pressure on the left side soon scheduled for panendoscopy, has a known thoracic aneurysm no frequency or urgency of urination not losing control of urination previously BP on right and left arm has been even aneurysm has been stable up until now had heart palpitations this afternoon, took a nitro due to pain under the left arm also took metoprolol and clonidine, extra Active Problems Problems Anemia (285.9) (D64.9) Ascending aortic aneurysm (441.2) (I71.2) Bipolar 2 disorder (296.89) (F31.81) Chest pain (786.50) (R07.9) Chronic bilateral low back pain without sciatica (724.2,338.29) (M54.5,G89.29) Constipation (564.00) (K59.00) COVID-19 (079.89) (U07.1) Esophageal spasm (530.5) (K22.4) Essential hypertension (401.9) (I10) ETOH abuse (305.00) (F10.10) GERD (gastroesophageal reflux disease) (530.81) (K21.9) Palpitations (785.1) (R00.2) Pancytopenia (284.19) (D61.818) Renal artery stenosis (440.1) (I70.1) Screening for colorectal cancer (V76.51,V76.41) (Z12.11,Z12.12) Segmental and somatic dysfunction of lumbar region (739.3) (M99.03) Social History Problems Current smoker (305.1) (F17.200) ETOH abuse (305.00) (F10.10) Regular alcohol consumption (V69.8) (Z78.9) Allergies Medication Erythromycin TABS Adverse Reaction; Gatrointestinal upset; Updated By: Meagan Baugh; 02/22/2021 3:30:50 PM polyethylene glycol 3350 Gatrointestinal upset; Recorded By: Antonia Cuenca; 02/16/2021 10:12:41 AM Aspirin TABS Recorded By: Antonia Cuenca; 03/17/2021 3:12:47 PM Current Meds Medication NameInstruction cloNIDine HCl - 0.2 MG Oral TabletTAKE 1 TABLET 3 TIMES DAILY. Lidocaine Viscous HCl - 2 % Mouth/Throat Solutiontake one teaspoon and swish and spit four times a day as needed Losartan Potassium 50 MG Oral TabletTAKE 1 TABLET DAILY. Metoprolol Succinate ER 25 MG Oral Tablet Extended Release 24 HourTAKE 1 TABLET DAILY. Nitroglycerin 0.4 MG Sublingual Tablet SublingualPLACE 1 TABLET UNDER THE TONGUE EVERY 5 MINUTES UP TO 3 DOSES NEEDED FOR CHEST PAIN (call 911 with 3rd dose). Suprep Bowel Prep Kit 17.5-3.13-1.6 GM/177ML Oral SolutionDILUTE CONTENTS AND USE DIRECTED FOR BOWEL PREP Vitals Vital Signs Recorded: 20Jun2021 02:03PMRecorded: [id number] 02:02PM Kscdkssh55, LUE, Jrbpizg382, RUE, Sitting Jrieudjrj76, LUE, Cqljonu78, RUE, Sitting Hffbszhoovu05.1 F Heart Rate84 Dhupsqqdyty47 O2 Gjdqlmjnqu57 Pain Scale8/10 Physical Exam Constitutional: Well developed, well nourished. vital signs reviewed. repeat BP left 100/76, right 106/80. patient alert patient without distress Musculoskeletal: Inspection/palpation of joints, bones, and muscles: Abnormal. Range of motion: Normal. Muscle strength/tone: Normal. tender left upper buttock only, normal motion of the lower back, normal stability. Signatures Electronically signed by : Kay Kim MD; Jun 20 2021 3:08PM EST (Author) Normal [facility] - Chemistry and C hemistry - challengeon 06-18-2021 Anion gap [Moles/Vol] Anion Gap 16 MMOL/ L (0-19 MMOL/L) 0 - 19 MMOL/L [facility] Calcium [Mass/Vol] Calcium 9.2 MG/DL (8.5-10.4 MG/DL) 8.5 - 10.4 MG/DL S Chloride [Moles/Vol] Chloride 103 MMOL/L (97-107 MMOL/L) 97 - 107 MMOL/L S CO2 [Moles/Vol] Carbon Dioxide 24 MM OL/L (24-31 MMOL/L) 24 - 31 MMOL/L S Creatinine [Mass/Vol] Creatinine R 1.0 M G/DL (0.4-1.6 MG/DL) 0.4 - 1.6 MG/DL [facility] GFR/1.73 sq M.predicted MDRD (S/P/Bld) [Vol rate/Area] EGFR 84 mL/min/1.73 m2 (Reference Range: not available) GFR ml/min/1.73m2 Stage ----- 90 1 60-89 2 30-59 3 15-29 4 <15 5 For -Americans, multiply EGFR result by 1.210 Calculation not validated for patients under 18 years of age. Performed at [address] [address] [facility] Glucose [Mass/Vol] Glucose 100 MG/DL H (65-99 MG/DL) High 65 - 99 MG/DL [facility] Potassium [Moles/Vol] Potassium R 4.1 MM OL/L (3.4-5.1 MMOL/L) 3.4 - 5.1 MMOL/L S Sodium [Moles/Vol] Sodium 143 MMOL/L (133-145 MMOL/L) RESULTS REVIEWED 133 - 145 MMOL/L [facility] Troponin T.cardiac [Mass/Vol] HS Troponin T,Gen 5 6 NG/L (-<15 NG/L) CONSISTENT WITH PREVIOUS RESULT Sex Specific Reference Range: Male (0-22), Female (0-14) Change(Delta) >=5 is significant Troponin Baseline and Serial elevation for significant change(delta)should be interpreted in conjunction with clinical presentation, history, signs and symptoms, ECG and biomarker concentrations. Troponin elevation can be seen in several other non-infarct conditions. Chronic troponin elevations can be detected in clinically stable patients with heart failure, cardiomyopathy, renal failure, diabetes, etc. Elevated troponin can also occur in myocarditis, heart contusion, PE, drug induced cardiotoxicity, etc. Samples should NOT be taken from patients receiving high dose biotin (> 5mg) doses until 8 hours following last biotin administration. [employer] Urea nitrogen [Mass/Vol] BUN 12 MG/DL (8-25 MG/DL) 8 - 25 MG/DL [facility] Urea nitrogen/Creatinine [Mass ratio] BUN Creatinine Ratio 12.0 RATIO (8-21 RATIO) 8 - 21 RATIO [facility] Laboratory - Hematology and Cell countson 06-18-2021 Basophils (Bld) [#/Vol] Abs Baso 0.01 K/UL (0.00-0.22 K/UL) 0.00 - 0.22 K/UL [facility] Basophils/100 WBC (Bld) Basophil 0.30 % (0-1 %) 0 - 1 % [facility] Differential cell count method Nom (Bld) Diff Type AUTO DIFF (Reference Range: not available) [facility] Eosinophils (Bld) [#/Vol] Abs Eos 0.07 K/UL (0-0.45 K/UL) 0 - 0.45 K/UL [facility] Eosinophils/100 WBC (Bld) Eosinophil 2.10 % (0-3 %) 0 - 3 % [facility] Erythrocyte distribution width (RBC) [Entitic vol] RDW SD 39.3 FL (37.0-54.0 FL) 37.0 - 54.0 FL [facility] Erythrocyte distribution width (RBC) [Ratio] RDW CV 12.9 % (11.7-15.0 %) 11.7 - 15.0 % [facility] Hematocrit (Bld) [Volume fraction] HCT 41.2 % (41-50 %) 41 - 50 % S Hemoglobin (Bld) [Mass/Vol] HGB 13.6 GM/DL (13.5-16.5 GM/DL) 13.5 - 16.5 GM/DL [facility] Immature granulocytes (Bld) [#/Vol] Abs Imm Neut 0.01 K/UL (0.0-0.1 K/UL) 0.0 - 0.1 K/UL [facility] Lymphocytes (Bld) [#/Vol] Abs Lymph 1.18 K/UL L (1.2-3.2 K/UL) Low 1.2 - 3.2 K/UL [facility] Lymphocytes/100 WBC (Bld) Lymphocyte 35.00 % (20-40 %) 20 - 40 % [facility] MCH (RBC) [Entitic mass] MCH 27.9 PG (26-34 PG) 26 - 34 PG [facility] MCHC (RBC) [Mass/Vol] MCHC 33.0 % (31-37 %) 31 - 37 % [facility] MCV (RBC) [Entitic vol] MCV 84.6 FL (80-100 FL) 80 - 100 FL [facility] Monocytes (Bld) [#/Vol] Abs Gage 0.33 K/UL (0-0.8 K/UL) 0 - 0.8 K/UL S Monocytes/100 WBC (Bld) Monocyte 9.80 % H (0-8 %) High 0 - 8 % [facility] Neutrophils (Bld) [#/Vol] Abs.Neut.Calculated 1.77 K/UL (Reference Range: not available) Performed at [facility] [address] [place] [id number] [facility] Neutrophils (Bld) [#/Vol] Abs Neut 1.77 K/UL L (1.8-7.7 K/UL) Low 1.8 - 7.7 K/UL [facility] Neutrophils.immature/ 100 WBC (Bld) Immature Neut % 0.30 % (0.0-1.0 %) 0.0 - 1.0 % [facility] Nucleated RBC/100 WBC (Bld) [Ratio] NRBCs 0 /100 WBC (0 /100 WBC) [facility] Platelet mean volume (Bld) [Entitic vol] MPV 10.7 CU (7.0-12.6 CU) 7.0 - 12.6 CU [facility] Platelets (Bld) [#/Vol] PLT 153 K/UL (150-450 K/UL) 150 - 450 K/UL [facility] RBC (Bld) [#/Vol] RBC 4.87 M/UL (4.5-5 .5 M/UL) 4.5 - 5.5 M/UL [facility] Segmented neutrophils/100 WBC (Bld) Granulocyte 52.50 % (50-70 %) 50 - 70 % [facility] WBC (Bld) [#/Vol] WBC 3.4 K/UL L (4.5- 11.0 K/UL) Low 4.5 - 11.0 K/UL [facility] Laboratory - Microbiology an d Antimicrobial susceptibilityon 06-18-2021 FLUAV RNA TATI+probe Ql (Nph) FLU A by PCR NEGATIVE (Reference Range: not available) [facility] FLUBV RNA TATI+probe Ql (Nph) FLU B by PCR NEGATIVE (Reference Range: not available) [facility] SARS-CoV-2 (COVID-19) RNA TATI+probe Ql (Unsp spec) SARS-CoV-2 by PCR NEGATIVE (NEG ) [facility] No Panel Informationon 06-18 XR Chest 2 Views (PA and lat) (Reference Range: not available) *FINAL Date of Service: 06/18/2021 04:17 Adm #: [id number] Reading Dr:SOHAIL MARINA Signoff Dr: SOHAIL MARINA PROCEDURE: CHEST 2 VIEW - IXR [id number] REASON FOR EXAM: Chest Pain RESULT: Clinical Data: Chest pain. Number of films:Two-view radiographs of the chest were obtained . Comparison Study: 05/16/2021. The cardiac silhouette is normal in size. The mediastinum is unremarkable. The lungs are clear. There is no pneumothorax. No pleural effusions are seen. The osseous structures are unchanged. Impression: Normal chest radiographs. [id number] This report has been produced using speech recognition. Original Interpreting Physician: SOHAIL MARINA M.D. Original Transcribed by/Date: [facility] Jun 18 2021 8:50A Original Electronically Signed by/Date: SOHAIL MARINA M.D. Jun 18 2021 8:50A Addendum Interpreting Physician: Addendum Transcribed by/Date: NO ADDENDUM Addendum Electronically Signed by/Date: [facility] HS Troponin T Delta 0 (0-4 ) Performed at [address] [address] 0 - 4 [facility] EKG (Reference Range : not available) Ventricular Rate : 86 BPM Atrial Rate : 86 BPM P-R Interval : 168 ms QRS Duration : 102 ms Q-T Interval : 360 ms QTC Calculation(Bazett) : 430 ms Calculated P [place] : 37 degrees Calculated R [place] : -16 degrees Calculated T [place] : 22 degrees Diagnosis:Normal sinus rhythm Normal ECG When compared with ECG of 13-JUN-2021 11:32, Confirmed by AGUSTINA HENNESSY DO ([id number]) on 06/18/2021 10:20:41 AM See also the report from this date [facility] CASE MANAGEMon 06-15-2021 CASE MANAGEM HNO ID: [id number] Author: PADDY Grewal Service: Social Work Author Type: School Manager Type: Care Mgt Progress Note Filed: 06/15/2021 2:51 PM Note Text: CARE MANAGEMENT PROGRESS NOTE SERVICE DATE: 06/15/2021 SERVICE TIME: 2:50 PM LOS: 0 days Indigent medication received from pharmacy and provided to patient. He has a bus pass and is now discharged from hospital. SIGNATURE: PADDY Grewal PATIENT NAME: Hosea Alvarez DATE: June 15, 2021 TIME: 2:50 PM PAGER/CONTACT #: [phone] [facility] CASE MANAGEM HNO ID: [id number] Author: PADDY Grewal Service: Social Work Author Type: School Manager Type: Care Mgt Progress Note Filed: 06/15/2021 11:49 AM Note Text: CARE MANAGEMENT PROGRESS NOTE SERVICE DATE: 06/15/2021 SERVICE TIME: 11:21 AM LOS: 0 days Patient told his nurse that he didn't have money to pay for prescription for clonodine for his high blood pressure. SMALL MACHINE BINDERY OPERATOR provided education about $4 generic medication program at [facility] which covers this medication. SMALL MACHINE BINDERY OPERATOR and KIT Armijo processed a 3 day indigent supply for this patient. Per pharmacy this is likely to take 4 hours. Note patient is waiting in ED waiting room for discharge indigent medications. SIGNATURE: PADDY Grewal PATIENT NAME: Hosea Alvarez DATE: June 15, 2021 TIME: 11:21 AM PAGER/CONTACT #: [phone] Normal [facility] CBC and Differentialon 06-15 Abs Baso <0.03 Normal <0.11 [facility] Abs Gage 0.31 k/uL Normal <0.87 [facility] Abs Neut 1.95 k/uL Normal 1.45-7.50 [facility] Absolute nRBC <0.01 Normal <0.01 [facility] Basophils/100 WBC (Bld) 0.3 % Normal [facility] DTYPE Auto Diff Normal [facility] Eosinophils (Bld) [#/Vol] 0.08 10*3/uL Normal <0.46 [facility] Eosinophils/100 WBC (Bld) 2.6 % Normal [facility] Erythrocyte distribution width (RBC) [Ratio] 13.1 % Normal 11.5-15.0 [facility] Hematocrit (Bld) [Volume fraction] 39.2 % Normal 39.0-51.0 [facility] Hemoglobin (Bld) [Mass/Vol] 12.8 g/dL Low 13.0-17.0 [facility] Lymphocytes (Bld) [#/Vol] 0.72 10*3/uL Low 1.00-4.00 [facility] Lymphocytes/100 WBC (Bld) 23.5 % Normal [facility] MCH 28.2 pG Normal 26.0-34.0 [facility] MCHC (RBC) [Mass/Vol] 32.7 g/dL Normal 30.5-36.0 [facility] MCV (RBC) [Entitic vol] 86.3 fL Normal 80.0-100.0 [facility] Monocytes/100 WBC (Bld) 10.1 % Normal [facility] Neutrophils/100 WBC (Bld) 63.5 % Normal [facility] NRBCs 0.0 /100 WBC Normal 0 [facility] Platelet mean volume (Bld) [Entitic vol] 11.1 fL Normal 9.0-12.7 [facility] Platelets (Bld) [#/Vol] 136 10*3/uL Low 150-400 [facility] Comment on above: Result Comment: [facility]. RBC (Bld) [#/Vol] 4.54 10*6/uL Normal 4.20-6.00 [facility] WBC (Bld) [#/Vol] 3.07 10*3/uL Low 3.70-11.00 [facility] Abs Baso <0.03 Normal <0.11 [facility] Abs Gage 0.32 k/uL Normal <0.87 [facility] Abs Neut 2.30 k/uL Normal 1.45-7.50 [facility] Absolute nRBC <0.01 Normal <0.01 [facility] Basophils/100 WBC (Bld) 0.6 % Normal [facility] DTYPE Auto Diff Normal [facility] Eosinophils (Bld) [#/Vol] 0.09 10*3/uL Normal <0.46 [facility] Eosinophils/100 WBC (Bld) 2.5 % Normal [facility] Erythrocyte distribution width (RBC) [Ratio] 13.1 % Normal 11.5-15.0 [facility] Hematocrit (Bld) [Volume fraction] 38.1 % Low 39.0-51.0 [facility] Hemoglobin (Bld) [Mass/Vol] 12.5 g/dL Low 13.0-17.0 [facility] Lymphocytes (Bld) [#/Vol] 0.88 10*3/uL Low 1.00-4.00 [facility] Lymphocytes/100 WBC (Bld) 24.3 % Normal [facility] MCH 28.2 pG Normal 26.0-34.0 [facility] MCHC (RBC) [Mass/Vol] 32.8 g/dL Normal 30.5-36.0 [facility] MCV (RBC) [Entitic vol] 86.0 fL Normal 80.0-100.0 [facility] Monocytes/100 WBC (Bld) 8.8 % Normal [facility] Neutrophils/100 WBC (Bld) 63.8 % Normal [facility] NRBCs 0.0 /100 WBC Normal 0 [facility] Platelet mean volume (Bld) [Entitic vol] 10.9 fL Normal 9.0-12.7 [facility] Platelets (Bld) [#/Vol] 142 10*3/uL Low 150-400 [facility] RBC (Bld) [#/Vol] 4.43 10*6/uL Normal 4.20-6.00 [facility] WBC (Bld) [#/Vol] 3.62 10*3/uL Low 3.70-11.00 [facility] Comp Metabolic Panelon 06-15 Albumin [Mass/Vol] 4.3 g/dL Normal 3.9-4.9 [facility] ALP [Catalytic activity/Vol] 68 U/L Normal 38-113 [facility] ALT [Catalytic activity/Vol] 24 U/L Normal 10-54 [facility] Anion gap [Moles/Vol] 8 mmol/L Low 9-18 [facility] AST [Catalytic activity/Vol] 22 U/L Normal 14-40 [facility] Bilirubin [Mass/Vol] 0.4 mg/dL Normal 0.2-1.3 [facility] Calcium [Mass/Vol] 9.3 mg/dL Normal 8.5-10.2 [facility] Chloride [Moles/Vol] 102 mmol/L Normal 97-105 [facility] CO2 [Moles/Vol] 29 mmol/L Normal 22-33 [facility] Creatinine [Mass/Vol] 0.99 mg/dL Normal 0.73-1.22 [facility] eGFR- Amer. >60 Normal [facility] eGFR-All Other Races >60 Normal [facility] Comment on above: Result Comment: eGFR (Estimated GFR) Units of measure: mL/min/1.73 meters squared eGFR is derived from the reexpressed MDRD Study equation using the following parameters: serum creatinine, age, gender and race. The creatinine assay has been calibrated to be traceable to IDMS. An eGFR <60 mL/min/1.73m2 for >3 months is consistent with chronic kidney disease. Refer to KDOQI guidelines for clinical interpretation. In patients with unstable renal function, e.g. those with acute kidney injury, the eGFR may not accurately reflect actual GFR. Glucose [Mass/Vol] 101 mg/dL High 74-99 [facility] Potassium [Moles/Vol] 4.3 mmol/L Normal 3.7-5.1 [facility] Protein [Mass/Vol] 7.0 g/dL Normal 6.3-8.0 [facility] Sodium [Moles/Vol] 139 mmol/L Normal 136-144 [facility] Urea nitrogen [Mass/Vol] 12 mg/dL Normal 9-24 [facility] Albumin [Mass/Vol] 4.3 g/dL Normal 3.9-4.9 [facility] [place] ALP [Catalytic activity/Vol] 67 U/L Normal 38-113 [facility] ALT [Catalytic activity/Vol] 23 U/L Normal 10-54 [facility] Anion gap [Moles/Vol] 10 mmol/L Normal 9-18 [facility] AST [Catalytic activity/Vol] 21 U/L Normal 14-40 [facility] Bilirubin [Mass/Vol] 0.2 mg/dL Normal 0.2-1.3 [facility] Calcium [Mass/Vol] 8.8 mg/dL Normal 8.5-10.2 [facility] [place] Chloride [Moles/Vol] 103 mmol/L Normal 97-105 [facility] CO2 [Moles/Vol] 26 mmol/L Normal 22-33 [facility] Creatinine [Mass/Vol] 1.00 mg/dL Normal 0.73-1.22 [facility] eGFR- Amer. >60 Normal [facility] eGFR-All Other Races >60 Normal [facility] Comment on above: Result Comment: eGFR (Estimated GFR) Units of measure: mL/min/1.73 meters squared eGFR is derived from the reexpressed MDRD Study equation using the following parameters: serum creatinine, age, gender and race. The creatinine assay has been calibrated to be traceable to IDMS. An eGFR <60 mL/min/1.73m2 for >3 months is consistent with chronic kidney disease. Refer to KDOQI guidelines for clinical interpretation. In patients with unstable renal function, e.g. those with acute kidney injury, the eGFR may not accurately reflect actual GFR. Glucose [Mass/Vol] 114 mg/dL High 74-99 [facility] [place] Potassium [Moles/Vol] 4.1 mmol/L Normal 3.7-5.1 [facility] Protein [Mass/Vol] 6.7 g/dL Normal 6.3-8.0 [facility] [place] Sodium [Moles/Vol] 139 mmol/L Normal 136-144 [facility] [place] Urea nitrogen [Mass/Vol] 13 mg/dL Normal 9-24 [facility] ED NOTEon 06-15-2021 ED NOTE HNO ID: [id number] Author: Kay Phillips RN Service: Critical Care Author Type: Registered Nurse Type: ED Notes Filed: 06/15/2021 7:26 AM Note Text: Pt presents to Er with c/c of back pain and hx of kidney stenosis. Normal [facility] ED NOTE HNO ID: [id number] Author: Vita Guerrero RN Service: Nursing Author Type: Registered Nurse Type: ED Notes Filed: 06/15/2021 12:31 AM Note Text: Discharge instructions and follow ups reviewed with the pt. Pt verbalizes understanding. No further questions asked. Vitals stable. Pt departs ED in stable condition [facility] ED NOTE HNO ID: [id number] Author: Vita Guerrero RN Service: Nursing Author Type: Registered Nurse Type: ED Notes Filed: 06/14/2021 11:31 PM Note Text: Patient educated to stay in bed. Patient was walking around carrying a IV bag and pump. Patient has two side rails up. [facility] ED NOTE HNO ID: [id number] Author: Sena Elias RN Service: ? Author Type: Registered Nurse Type: ED Notes Filed: 06/14/2021 10:36 PM Note Text: Bed: ED-10 Expected date: 06/14/21 Expected time: Means of arrival: Comments: triage [facility] ED PROV NOTEon 06-15-2021 ED PROV NOTE HNO ID: [id number] Author: Cheryl Jesus MD Service: Emergency Medicine Author Type: Physician Type: ED Provider Notes Filed: 06/15/2021 4:57 PM Note Text: ED Provider Note Patient Name: Hosea Alvarez SERVICE DATE: 06/15/21 History Patient presents with: Back Pain: hx of kidney stenosis Mr. Alvarez, 50-year-old male with a past medical history of hemorrhoids, hypertension, hypoglycemia, reported renal artery stenosis who is from [facility] and is currently homeless here in [place] who arrives to the emergency department with a chief complaint of left flank pain that has been waxing and waning. There are no urinary symptoms. Patient states that he has a history of an ascending thoracic aneurysm and renal artery stenosis. He states that he was drinking some coffee this morning when he developed some discomfort. Per the medical record on November 21 of this year he did have an ultrasound of the renal artery and was seen by the vascular surgeon and [place] and due to a normal renal function and controlled blood pressure was going to be followed and observed for now. There is no reported chest pain or shortness of breath. There have been no fevers or chills. Patient states that he was seen this morning in the emergency department for hypertension. He states he was drinking alcohol at a local bar and feels that he was likely dehydrated. He was seen at [facility] earlier yesterday for the same thing. His EKG and troponin T were negative this morning here. He was discharged to home to follow with his primary care physician. Patient denies any chest pain currently. It should be noted the patient does have a multidisciplinary plan. They asked us to consult social work immediately upon admission to the hospital. He does have a CTA of his chest on February 21 revealing a thoracic ascending aneurysm with probably aortic root involvement and dilation. His last transesophageal echocardiogram was August 2020. He has had extensive evaluations through multiple different systems across the various states of [place], [place], [place] and [place]. History provided by: Medical records and patient PAST MEDICAL HISTORY Diagnosis Date - Hemorrhoids - Hypertension - Hypoglycemia No past surgical history on file. No family history on file. Social History Tobacco Use - Smoking status: Former Smoker Types: Cigarettes - Smokeless tobacco: Never Used Vaping Use - Vaping Use: Never used Substance and Sexual Activity - Alcohol use: Yes Alcohol/week: 7.0 standard drinks Types: 7 Cans of beer per week Comment: pt sts a beer a day. daily - Drug use: No - Sexual activity: Not on file ALLERGIES Allergen Reactions - Caffeine Rash Other reaction(s): Shakiness - [place] GI Upset, Rash, Vomiting Statused by Person: ?Imelda Meza.([employer]er2) on Statused by Person: ?SRAVANTHI MONGE([facility]) on Statused by Person: ?Tammy. 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 Respiratory: Negative for chest tightness and shortness of breath. Cardiovascular: Negative for chest pain, palpitations and leg swelling. Gastrointestinal: Negative for abdominal distention, abdominal pain and nausea. Genitourinary: Positive for flank pain. Negative for difficulty urinating, dysuria and hematuria. Musculoskeletal: Negative for back pain and neck pain. Skin: Negative for rash. Neurological: Negative for dizziness. Psychiatric/Behavioral: Negative for behavioral problems and confusion. Physical Exam BP 155/105 Pulse 81 Temp (Src) 98.4 (Oral) Resp 17 Ht 5' 6 (1.68m) Wt 190 lb (86.2kg) SpO2 99% BMI 30.68 kg/(m2). Physical Exam Vitals and nursing note reviewed. Constitutional: Appearance: Normal appearance. He is not ill-appearing. HENT: Head: Normocephalic. Eyes: Conjunctiva/sclera: Conjunctivae normal. Neck: Trachea: Trachea and phonation normal. Cardiovascular: Rate and Rhythm: Normal rate and regular rhythm. Pulses: Normal pulses. Pulmonary: Effort: Pulmonary effort is normal. Breath sounds: Normal breath sounds. Abdominal: General: Abdomen is flat. Bowel sounds are normal. Palpations: A (more content not included)... Normal [facility] ED PROV NOTE HNO ID: [id number] Author: Santa Thurman, DO Service: ? Author Type: Physician Type: ED Provider Notes Filed: 06/14/2021 11:43 PM Note Text: ED Provider Note Patient Name: Hosea Alvarez SERVICE DATE: 06/14/21 History Patient presents with: Hypertension: hypertensive earlier, hx ETOH abuse Chest Pain: intermittent History provided by: Patient Chest Pain Pain location: Substernal area Pain quality: aching Pain radiates to: Does not radiate Pain severity: Moderate Onset quality: Unable to specify Timing: Intermittent Progression: Unchanged Chronicity: Recurrent Associated symptoms: no abdominal pain, no back pain, no cough, no diaphoresis, no dizziness, no fever, no nausea, no numbness, no shortness of breath, no vomiting and no weakness Risk factors: hypertension and male sex Patient to emergency department for evaluation of chest pain and hypertension. This is a recurrent issue for the patient. He states he was seen at [facility] emergency department earlier today for the same. Epic review shows multiple visits for the same as well as a multidisciplinary plan for the same. He states this is the exact same symptoms that he has had in the past. PAST MEDICAL HISTORY Diagnosis Date - Hemorrhoids - Hypertension - Hypoglycemia No past surgical history on file. No family history on file. Social History Tobacco Use - Smoking status: Former Smoker Types: Cigarettes - Smokeless tobacco: Never Used Vaping Use - Vaping Use: Never used Substance and Sexual Activity - Alcohol use: Yes Alcohol/week: 7.0 standard drinks Types: 7 Cans of beer per week Comment: pt sts a beer a day. daily - Drug use: No - Sexual activity: Not on file ALLERGIES Allergen Reactions - Caffeine Rash Other reaction(s): Shakiness - [place] GI Upset, Rash, Vomiting Statused by Person: ?Imelda Meza.([employer]) on Statused by Person: ?SRAVANTHI MONGE([facility]) on Statused by Person: ?Tammy. 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 Eyes: Negative for visual disturbance. Respiratory: Negative for cough, chest tightness and shortness of breath. Cardiovascular: Positive for chest pain. Gastrointestinal: Negative for abdominal pain, diarrhea, nausea and vomiting. Genitourinary: Negative for difficulty urinating. Musculoskeletal: Negative for back pain, myalgias and neck pain. Skin: Negative for rash. Neurological: Negative for dizziness, weakness and numbness. Psychiatric/Behavioral: Negative for agitation. Physical Exam BP 149/99 Pulse 76 Temp (Src) 98.4 (Temporal) Resp 16 Ht 5' 6 (1.68m) Wt 190 lb (86.2kg) SpO2 99% BMI 30.68 kg/(m2). Physical Exam Vitals and nursing note reviewed. Constitutional: Appearance: He is well-developed. HENT: Head: Normocephalic and atraumatic. Eyes: General: No scleral icterus. Cardiovascular: Rate and Rhythm: Normal rate and regular rhythm. Heart sounds: Normal heart sounds. Pulmonary: Effort: Pulmonary effort is normal. Breath sounds: Normal breath sounds. Abdominal: General: Bowel sounds are normal. Palpations: Abdomen is soft. Musculoskeletal: General: Normal range of motion. Cervical back: Normal range of motion and neck supple. Skin: General: Skin is warm and dry. Neurological: Mental Status: He is alert and oriented to person, place, and time. Diagnostic Testing ED Labs Ordered and Reviewed CBC + DIFF - Abnormal; Notable for the following components: Result Value Ref Range WBC 3.62 (*) 3.70 - 11.00 k/uL Hemoglobin 12.5 (*) 13.0 - 17.0 g/dL Hematocrit 38.1 (*) 39.0 - 51.0 % Platelet Count 142 (*) 150 - 400 k/uL Abs Lymph 0.88 (*) 1.00 - 4.00 k/uL All other components within normal limits COMP METABOLIC PANEL MAGNESIUM BLD ALCOHOL / ETHANOL BLOOD (AK,AV,EU,FV,HL,RENE,MM,SP ) TROPONIN T Procedures ED Course / Clinical Impression ED Course as of Jun 14 2342 Santa Thurman's Documentation Wed Jun 14, [id number] ED EKG INTERPRETATION: Normal sinus rhythm at 62 beats per minute Normal axis Normal intervals Nonspecific ST-T changes Interpretation by ED physician No change compared to prior EKG' (more content not included)... Normal [facility] Ethanolon 06-15-2021 Ethanol [Mass/Vol] mg/dL Normal <11 [facility] Magnesiumon 06-15-2021 Magnesium [Mass/Vol] 1.8 mg/dL Normal 1.7-2.3 [facility] Troponin Ton 06-15-2021 Troponin T <0.010 Normal 0.000-0.029 [facility] Urinalysis with Microscopico n 06-15-2021 Bilirubin, Urine Negative Normal Negative [facility] Clarity (U) Clear Normal Clear [facility] Color (U) Colorless Critically abnormal Yellow [facility] Glucose Ql (U) Negative Normal Negative [facility] Hemoglobin/Blood,Ur Negative Normal Negative [facility] Ketones Ql (U) Negative Normal Negative [facility] Leukest Negative Normal Negative [facility] Nitrite Ql (U) Negative Normal Negative [facility] pH (U) 6.0 [pH] Normal 5.0-8.0 [facility] Protein, Urine Negative Normal Negative [facility] RBC 0-3 Normal 0-3 [facility] Specific [place], Ur 1.007 Normal 1.005-1.030 [facility] Urine, Other FOR EAST USE ONLY SEE COMMENT Normal [facility] Comment on above: Result Comment: 1+ Mucous Urobilinogen (U) [Mass/Vol] Negative Normal Negative [facility] WBC 0-5 Normal 0-5 [facility] ACETAMINOPHENon 06-14-2021 Acetaminophen [Mass/Vol] ug/mL Normal 10.0 - 30.0 [facility] Comment on above: Performed By: #### C BCDF #### [facility] [address] [place], [place] [phone] ALCOHOLon 06-14-2021 Ethanol [Mass/Vol] mg/dL Normal [facility] Comment on above: Result Comment: FOR MEDICAL USE ONLY. . REF VALUES <10 Performed By: #### A LC ####[facility] [place], [place] [phone] Acetaminophen Level, Serumon 06-14-2021 Acetaminophen [Mass/Vol] ug/mL See Below [address] Work Phone: Comment on above: Reference Range: 10. 0 - 30.0 Acetylsalicylic Acid Level, Serumon 06-14-2021 Salicylates [Mass/Vol] mg/dL 4 - [address] Work Phone: Alcohol, Serumon 06-14-2021 Ethanol [Mass/Vol] mg/dL [address] Work Phone: Comment on above: FOR MEDICAL USE ONLY . .REF VALUES <10 CASE MANAGEMon 06-14-2021 CASE MANAGEM HNO ID: [id number] Author: STONE Daugherty Service: Case Management Author Type: School Manager Type: Care Mgt Progress Note Filed: 06/14/2021 6:09 PM Note Text: CARE MANAGEMENT PROGRESS NOTE SERVICE DATE: 06/14/2021 SERVICE TIME: 5:33 PM LOS: 0 days SW was informed by ER registrant that patient was requesting to speak to SW regarding his wait. Patient was seen at earlier for same complaint, in which patient stated he was screwed over because they would not give him correct medication. Patient stated that he came by [facility] for chief complaint of chest pain and hypertension. Sw met with patient to address his concern. Patient stated that he comes to be seen for high blood pressure, but is thinking of going to [facility] due to his wait time. Patient was requesting this medical underwriter contact [facility] ER to see how long their wait time was. Sw encouraged patient to stay due to already being triaged and already in line for bed. Sw explained that we are unable to provide wait time at this time. Patient was requesting food voucher and bus pass, per chart review, patient has an active care plan in which states, that patient has history of prolonging/lingering visits. Care plan also stated not to provide food or bus passes. Sw explained to patient that we are unable to provide at this time. Patient was also requesting that nurse come and take his vitals. Sw notified nurse of patients request. Patient stated that he was going to move to a different area to wait for bed to become. Patient was requesting to be contacted by phone when ER bed becomes available. Sw notified nursing staff to contact patient when bed is available. ADDEND Sw was contacted by ER medic who stated patient was requesting to speak with medical underwriter. Sw met with patient to discuss concerns. Patient that his insurance company is not covering his blood pressure medication. Patient stated that he is unsure his medication is not covered but thinks it has to be done peer to peer. Sw encouraged patient to contact his insurance company for further clarification. Patient was requesting a free voucher for his medication, in which sw explained unable to provide at this time. Patient expressed frustration due to not being provided a bus pass or food voucher. SIGNATURE: STONE Daugherty PATIENT NAME: Hosea Alvarez DATE: June 14, 2021 TIME: 5:33 PM PAGER/CONTACT #: [phone] [facility] CBC AND DIFFERENTIALon 06-14 % AUTOMATED IMMATURE GRAN 0.3 % Normal 0.0 - 0.9 [facility] Comment on above: Result Comment: Kath ture Granulocyte Count (IG) includes promyelocytes, myelocytes and metamyelocytes but does not include bands. Percent differential counts (%) should be interpreted in the context of the absolute cell counts (cells/L). Performed By: #### C BCDF ####[facility] [place] [address], [place] [phone] Basophils (Bld) [#/Vol] 0.01 10*3/uL Normal 0.00 - 0.10 [facility] Comment on above: Performed By: #### C BCDF ####[address], [place] [phone] Basophils/100 WBC (Bld) 0.3 % Normal 0.0 - 2.0 [facility] Comment on above: Performed By: #### C BCDF ####[address], [place] [phone] Eosinophils (Bld) [#/Vol] 0.06 10*3/uL Normal 0.00 - 0.70 [facility] Comment on above: Performed By: #### C BCDF ####[address], [place] [phone] Eosinophils/100 WBC (Bld) 1.7 % Normal 0.0 - 6.0 [facility] Comment on above: Performed By: #### C BCDF ####[address], [place] [id number] Erythrocyte distribution width (RBC) [Ratio] 13.1 % Normal 11.5 - 14.5 [facility] Comment on above: Performed By: #### C BCDF ####[address], [place] [phone] Hematocrit (Bld) [Volume fraction] 38.4 % Low 41.0 - 52.0 [facility] Comment on above: Performed By: #### C BCDF ####[facility] [place] [address], [place] [phone] Hemoglobin (Bld) [Mass/Vol] 13.0 g/dL Low 13.5 - 17.5 [facility] Comment on above: Performed By: #### C BCDF ####[facility] [facility] [place], [place] [phone] Lymphocytes (Bld) [#/Vol] 0.68 10*3/uL Low 1.20 - 4.80 [facility] Comment on above: Performed By: #### C BCDF ####[facility] [facility] [place], [place] [phone] Lymphocytes/100 WBC (Bld) 19.8 % Normal 13.0 - 44.0 [facility] Comment on above: Performed By: #### C BCDF ####[facility] [facility] [place], [place] [phone] MCHC (RBC) [Mass/Vol] 33.9 g/dL Normal 32.0 - 36.0 [facility] Comment on above: Performed By: #### C BCDF ####[facility] [facility] [place], [place] [phone] MCV (RBC) [Entitic vol] 82 fL Normal 80 - 100 [facility] Comment on above: Performed By: #### C BCDF ####[facility] [facility] [place], [place] [phone] Monocytes (Bld) [#/Vol] 0.31 10*3/uL Normal 0.10 - 1.00 [facility] Comment on above: Performed By: #### C BCDF ####[facility] [facility] [place], [place] [phone] Monocytes/100 WBC (Bld) 9.0 % Normal 2.0 - 10.0 [facility] Comment on above: Performed By: #### C BCDF ####[facility] [facility], [place] [phone] Neutrophils (Bld) [#/Vol] 2.36 10*3/uL Normal 1.20 - 7.70 [facility] Comment on above: Performed By: #### C BCDF ####[facility] [facility] [place], [place] [phone] Neutrophils/100 WBC (Bld) 68.9 % Normal 40.0 - 80.0 [facility] Comment on above: Performed By: #### C BCDF ####[facility] [facility] [place], [place] [phone] Platelets (Bld) [#/Vol] 142 10*3/uL Low 150 - 450 [facility] Comment on above: Performed By: #### C BCDF ####[facility] [facility] [place], [place] [phone] RBC 4.66 x10E12/L Normal 4.50 - 5.90 [facility] Comment on above: Performed By: #### C BCDF ####[facility] [facility] [place], [place] [phone] WBC (Bld) [#/Vol] 3.4 10*3/uL Low 4.4 - 11.3 [facility] Comment on above: Performed By: #### C BCDF ####[facility] [facility] [place], [place] [phone] COMPREHENSIVE PANELon 2020 Albumin [Mass/Vol] 4.1 g/dL Normal 3.4 - 5.0 [facility] Comment on above: Performed By: #### U A #### [facility] [address] [facility] [place], [place] [phone] ALP [Catalytic activity/Vol] 52 U/L Normal 33 - 120 [facility] Comment on above: Performed By: #### U A #### [facility] [address] [facility] [place], [place] [phone] ALT [Catalytic activity/Vol] 21 U/L Normal 10 - 52 [facility] Comment on above: Result Comment: Yanni ents treated with Sulfasalazine may generate falsely decreased results for ALT. Performed By: #### U A #### [facility] [address] [facility] [place], [place] [phone] Anion gap [Moles/Vol] 11 mmol/L Normal 10 - 20 [facility] Comment on above: Performed By: #### U A #### [place] [id number] [facility] [place], [place] [phone] AST [Catalytic activity/Vol] 16 U/L Normal 9 - 39 [facility] Comment on above: Performed By: #### U A #### [address], [place] [phone] Bilirubin [Mass/Vol] 0.3 mg/dL Normal 0.0 - 1.[address] [facility] Comment on above: Performed By: #### U A #### [address], [place] [phone] Calcium [Mass/Vol] 8.9 mg/dL Normal 8.6 - 10.3 [facility] Comment on above: Performed By: #### U A #### [address], [place] [phone] Chloride [Moles/Vol] 106 mmol/L Normal 98 - [address] [facility] Comment on above: Performed By: #### U A #### [address], [place] [id number] Creatinine [Mass/Vol] 0.99 mg/dL Normal 0.50 - 1.30 [facility] Comment on above: Performed By: #### U A #### [address], [place] [id number] GFR- AM. >60 Normal >60 [facility] Comment on above: Result Comment: CALC ULATIONS OF ESTIMATED GFR ARE PERFORMED USING THE MDRD STUDY EQUATION FOR THE IDMS-TRACEABLE CREATININE METHODS. CLIN CHEM 2007;53:766-72 Performed By: #### U A #### [address], [place] [id number] GFR-NON AM. >60 Normal >60 [facility] Comment on above: Performed By: #### U A #### [address], [place] [id number] Glucose [Mass/Vol] 115 mg/dL High 74 - 99 [facility] Comment on above: Performed By: #### U A #### [place] [id number] [facility] [place], [place] [phone] HCO3 (Bld) [Moles/Vol] 25 mmol/L Normal 21 - 32 [facility] Comment on above: Performed By: #### U A #### [address], [place] [id number] Potassium [Moles/Vol] 4.3 mmol/L Normal 3.5 - 5.3 [facility] Comment on above: Performed By: #### U A #### [address], [place] [phone] Protein [Mass/Vol] 6.8 g/dL Normal 6.4 - 8.2 [facility] Comment on above: Performed By: #### U A #### [address], [place] [phone] Sodium [Moles/Vol] 138 mmol/L Normal 136 - 145 [facility] Comment on above: Performed By: #### U A #### [address], [place] [phone] Urea nitrogen [Mass/Vol] 12 mg/dL Normal 6 - 23 [facility] Comment on above: Performed By: #### U A #### [address], [place] [id number] CORONAVIRUS 2019 BY PCRon SARS-CoV-2 (COVID-19) RNA TATI+probe Ql (Unsp spec) Not detected Normal Not Detected [facility] Comment on above: Result Comment: . This test has received FDA Emergency Use Authorization (EUA) and has been verified by [facility]. This test is only authorized for the duration of time that circumstances exist to justify the authorization of the emergency use of in vitro diagnostic tests for the detection of SARS-CoV-2 virus and/or diagnosis of COVID-19 infection under section 564(b)(1) of the Act, 21 U.S.C. 360bbb-3(b)(1), unless the authorization is terminated or revoked sooner. [facility] is certified under CLIA-88 as qualified to perform high complexity testing. Testing is performed in the [facility] laboratory located at [address] [place] [address], [place] [address]. SARS-CoV-2/Flu/RSV Multiplex Test: Fact sheet for providers: https://www.fda.gov/media/165020/download Fact sheet for patients: https://www.fda.gov/media/203569/download Performed By: #### C OV19 ####[facility] [place], [place] [phone] Lab Specimen Source Nasal, Nasopharyngeal Normal [facility] Comment on above: Performed By: #### C OV19 ####[facility] [facility] [place], [place] [phone] CREATINE KINASEon 06-14-2021 CK [Catalytic activity/Vol] 94 U/L Normal 0 - 325 [facility] Comment on above: Performed By: #### C K ####[facility] [place], [place] [phone] Complete Blood Count + Diffe rentialon 06-14-2021 Basophils/100 WBC (Bld) 0.3 % 0.0 - 2.[address] [facility] [address] Work Phone: Erythrocyte distribution width (RBC) [Ratio] 13.1 % See Below [address] Work Phone: [phone] Comment on above: Reference Range: 11. 5 - 14.5 Hematocrit (Bld) [Volume fraction] 38.4 % below low threshold See Below [address] Work Phone: Comment on above: Reference Range: 41. 0 - 52.0 Hemoglobin (Bld) [Mass/Vol] 13.0 g/dL below low threshold See Below [address] Work Phone: Comment on above: Reference Range: 13. 5 - 17.5 Lymphocytes/100 WBC (Bld) 19.8 % See Below [address] Work Phone: [phone] Comment on above: Reference Range: 13. 0 - 44.0 MCHC (RBC) [Mass/Vol] 33.9 g/dL See Below [address] Work Phone: [phone] Comment on above: Reference Range: 32. 0 - 36.0 MCV (RBC) [Entitic vol] 82 fL 80 - [address] Work Phone: [phone] Monocytes/100 WBC (Bld) 9.0 % 2.0 - 10.[address] Work Phone: [phone] Neutrophils/100 WBC (Bld) 68.9 % See Below [address] Work Phone: [phone] Comment on above: Reference Range: 40. 0 - 80.0 Platelets (Bld) [#/Vol] 142 10*3/uL below low threshold 150 - [address] [facility] [address] Work Phone: [phone] RBC (Bld) [#/Vol] 4.66 {x10E12/L} See Below [address] Work Phone: [phone] Comment on above: Reference Range: 4.5 0 - 5.90 WBC (Bld) [#/Vol] 3.4 10*3/uL below low threshold 4.4 - 11.[address] [facility] [address] Work Phone: [phone] Complete Blood Count + Differential 0.01 {x10E9/L} See Below [address] Work Phone: [phone] Comment on above: Reference Range: 0.0 0 - 0.10 Complete Blood Count + Differential 0.06 {x10E9/L} See Below [address] Work Phone: [phone] Comment on above: Reference Range: 0.0 0 - 0.70 Complete Blood Count + Differential 0.31 {x10E9/L} See Below [address] Work Phone: Comment on above: Reference Range: 0.1 0 - 1.00 Complete Blood Count + Differential 0.68 {x10E9/L} below low threshold See Below [address] Work Phone: [phone] Comment on above: Reference Range: 1.2 0 - 4.80 Complete Blood Count + Differential 2.36 {x10E9/L} See Below [address] Work Phone: [phone] Comment on above: Reference Range: 1.2 0 - 7.70 Complete Blood Count + Differential 1.7 % 0.0 - 6.[address] [facility] [address] Work Phone: Complete Blood Count + Differential 0.3 % 0.0 - 0.[address] [facility] [address] Work Phone: [phone] Comment on above: Immature Granulocyte Count (IG) includes promyelocytes, myelocytes and metamyelocytes but does not include bands. Percent differential counts (%) should be interpreted in the context of the absolute cell counts (cells/L). Coronavirus 2019 RNA by PCR, Symptomaticon 06-14-2021 Coronavirus 2019 RNA by PCR, Symptomatic Not detected Normal See Below [address] Work Phone: Comment on above: SOURCE: Nasal, Nasop haryngealReference Range: Not Detected.This test has received FDA Emergency Use Authorization (EUA) and has been verified by [facility]. This test is only authorized for the duration of time that circumstances exist to justify the authorization of the emergency use of in vitro diagnostic tests for the detection of SARS-CoV-2 virus and/or diagnosis of COVID-19 infection under section 564(b)(1) of the Act, 21 U.S.C. 360bbb-3(b)(1), unless the authorization is terminated or revoked sooner. [facility] is certified under CLIA-88 as qualified to perform high complexity testing. Testing is performed in the [facility] laboratory located at [address] [place] [address], [id number]. SARS-CoV-2/Flu/RSV Multiplex Test: Fact sheet for providers: https://www.fda.gov/media/626512/downloadFact sheet for patients: https://www.fda.gov/media/031663/download Covid 19 Resultson 1 SARS-CoV-2 (COVID-19) RNA TATI+probe Ql (Unsp spec) NEGATIVE COVID-19 Test Coronaviruses are common world-wide and are the cause of many common colds. SARS-COV2 is a new coronavirus that began circulating worldwide in 2019 so we are calling it COVID-19. It has been estimated that four out of five patients with COVID-19 will recover at home without the need for medical attention. Symptoms of COVID-19 may include cough, fever, shortness of breath, loss of taste or smell and other flu-like symptoms including chills, sore muscles, sore throat, and headache. Severe illness is more common in older people and people with other health problems such as high blood pressure, obesity, and immune system problems. If the test is positive, you have COVID-19. You will be contacted by the ordering physicians office and instructed to remain on home isolation, in accordance with CDC guidelines. You may also be contacted by the [facility] to see if any of your close contacts may have been exposed to the virus and need to quarantine. If the test is negative, you likely do not have COVID-19 at this time, but you still may have a different illness that can spread to other people (like Influenza, or the Flu) and could still be at risk for getting COVID-19. We recommend that you stay away from other people to limit the spread of illness until your symptoms are improving and you are fever-free for 24 hours without the use of fever lowering medications such as acetaminophen or ibuprofen. No test is 100% accurate so if you are still concerned you may have COVID-19, talk to your doctor about the need to continue to stay away from others. Medicines Unless your provider told you not to use the following: Acetaminophen (Tylenol and others) is generally safe. Anti-inflammatory medications, such as Ibuprofen (Advil or Motrin) or Naproxen (Aleve) can also be used. Pmbi-hov-xlotrnv cough and cold medicines can be used according to the instructions on the package. Some gytd-fez-muswyzi medicines also contain acetaminophen. Make sure you are not taking more than your recommended dose. For those not hospitalized, there is no specific treatment available for this illness. Antibiotics do not treat Coronaviruses. Follow-Up Follow up with your doctor by scheduling a virtual visit or consider follow-up at one of our urgent care fever clinics. If you are having difficulty breathing, or are very weak and having difficulty standing, this is a medical emergency. Call 911 or have someone take you to the nearest emergency room immediately. If possible, wear a facemask. Additional guidance from the CDC for patients who tested POSITIVE for COVID-19 How to isolate: Isolate yourself in a specific room at home and limit your contact with others. Use a separate bathroom from other members of the household, when possible. Leave home only to get essential medical care. Do not go to work, school or public areas. Avoid using public transportation, ride-sharing, or taxis. Restrict contact with pets and other animals. If you must care for your pet or be around animals while you are sick, wash your hands before and after your interaction and wear a facemask. Make sure that shared spaces in the home have good airflow, such as by an air conditioner or an opened window, weather permitting. Personal Hygiene Procedures: Wear a face mask when in the same room as other people or pets. If a face mask interferes with your breathing, others should wear a mask when sharing space with you. Frequent hand-washing: wash your hands with soap and water for at least 20 seconds. If soap and water are not available, use alcohol-based hand market research manager. Avoid touching your eyes, nose, and mouth with unwashed hands. Household Hygiene Procedures: Avoid sharing personal household items such as dishes, glassware, cups, eating utensils, towels or bedding with other people or pets in your home. After use, these items should be washed with soap and hot water. Disinfect all high-touch surfaces every day with antibacterial cleaning solutions such as Lysol wipes, bleach, cleansers, etc. High-touch surfaces include tabletops, doorknobs, bathroom fixtures, toilets, phones, keyboards, tablets and bedside tables. Immediately clean any surfaces that may have blood, poop or body fluids on them, using antibacterial cleaning solutions such as Lysol wipes, bleach, cleansers, etc. If clothing or bedding come into contact with blood, poop or body fluids, they should be washed immediately. Follow the directions on the laundry detergent and clothing labels but hot water is recommended when possible. Stopping home isolation precautions: If possible, consult your doctor before stopping home isolation precautions. According to the CDC, you can discontinue home isolation precautions when you have met both of these criteria: Your fever and respiratory symptoms have been gone for 24 guerline (more content not included)... Normal [facility] Creatine Kinase, Levelon CK [Catalytic activity/Vol] 94 U/L 0 - [address] Work Phone: DRUG SCREEN,URINEon 06-14-20 21 AMPHETAMINE SCREEN,U Negative Normal NEGATIVE [facility] Comment on above: Result Comment: CUTO FF LEVEL: 500 NG/ML Cross-reactivity has been reported with high concentrations of the following drugs: buproprion, chloroquine, chlorpromazine, ephedrine, mephentermine, fenfluramine, phentermine, phenylpropanolamine, pseudoephedrine, and propranolol. Performed By: #### C BCDF #### [facility] [address] [facility] [place], [place] [id number] BARBITURATES SCREEN,U Negative Normal NEGATIVE [facility] Comment on above: Result Comment: CUTO FF LEVEL: 200 NG/ML Performed By: #### C BCDF #### [facility] [address] [facility] [place], [place] [phone] BENZODIAZEPINES SCREEN,U Negative Normal NEGATIVE [facility] Comment on above: Result Comment: CUTO FF LEVEL: 200 NG/ML Performed By: #### C BCDF #### [facility] [address] [facility] [place], [place] [phone] CANNABINOIDS SCREEN,U Negative Normal NEGATIVE [facility] Comment on above: Result Comment: CUTO FF LEVEL: 50 NG/ML Performed By: #### C BCDF #### [facility] [address] [facility] [place], [place] [id number] COCAINE METABOLITE SCREEN,U Negative Normal NEGATIVE [facility] Comment on above: Result Comment: CUTO FF LEVEL: 150 NG/ML Performed By: #### C BCDF #### [place] [id number] [facility] [place], [place] [id number] DRUG SCREEN COMMENT SEE BELOW Normal [facility] Comment on above: Result Comment: Drug screen results are presumptive and should not be used to assess compliance with prescribed medication. Contact the performing [facility] laboratory to add-on definitive confirmatory testing if clinically indicated. . Toxicology screening results are reported qualitatively. The concentration must be greater than or equal to the cutoff to be reported as positive. The concentration at which the screening test can detect an individual drug or metabolite varies. The absence of expected drug(s) and/or drug metabolite(s) may indicate non-compliance, inappropriate timing of specimen collection relative to drug administration, poor drug absorption, diluted/adulterated urine, or limitations of testing. For medical purposes only; not valid for forensic use. . Interpretive questions should be directed to the laboratory medical directors. Performed By: #### C BCDF #### [address], [place] [phone] FENTANYL SCREEN,URINE Negative Normal NEGATIVE [facility] Comment on above: Result Comment: CUTO FF LEVEL: 1 NG/ML Performed By: #### C BCDF #### [address], [place] [phone] METHADONE SCREEN,U Negative Normal NEGATIVE [facility] Comment on above: Result Comment: CUTO FF LEVEL: 150 NG/ML The metabolite N-uqebo-fehgxczmvdluwr (LAAM) is not detected by this method in concentrations that would be found in the urine of patients on LAAM therapy. Performed By: #### C BCDF #### [place] [id number] [facility] [place], [place] [phone] OPIATES SCREEN,U Negative Normal NEGATIVE [facility] Comment on above: Result Comment: CUTO FF LEVEL: 300 NG/ML The opiate screen does not detect fentanyl, meperidine, or tramadol. Oxycodone is not consistently detected (refer to Oxycodone Screen, Urine result). Performed By: #### C BCDF #### [address], [place] [phone] OXYCODONE SCREEN,U Negative Normal NEGATIVE [facility] Comment on above: Result Comment: CUTO FF LEVEL: 100 NG/ML This test will accurately detect both oxycodone and oxymorphone. Performed By: #### C BCDF #### [facility] [address] [facility] [place], [place] [phone] PCP SCREEN,U Negative Normal NEGATIVE [facility] Comment on above: Result Comment: CUTO FF LEVEL: 25 NG/ML Cross-reactivity has been reported with dextromethorphan. Performed By: #### C BCDF #### [facility] [address] [facility] [place], [place] [phone] ED NOTEon 06-14-2021 ED NOTE HNO ID: [id number] Author: Aneudy Pittman RN Service: ? Author Type: Registered Nurse Type: ED Notes Filed: 06/14/2021 5:19 PM Note Text: Pt requesting to have his BP checked in both arms. He states he has an aneurysm. 149/99 left arm, 149/95 right arm Normal [facility] ED NOTE HNO ID: [id number] Author: Yang Gonzalez Medic Service: ? Author Type: Grain Cleaner And Transfer Operator and Leather Belt Maker Type: ED Notes Filed: 06/14/2021 2:38 PM Note Text: Attempted blood draw x 2, unsuccessful. Normal [facility] ED NOTE HNO ID: [id number] Author: Rhoda Diaz Service: ? Author Type: Grain Cleaner And Transfer Operator and Leather Belt Maker Type: ED Notes Filed: 06/14/2021 2:41 PM Note Text: Pt presents to ED with hypertension and intermittent chest pain, pt is a chronic alcoholic and normally gets hypertensive when he drinks, pt states last drink was last night, pt was seen at [facility] earlier today and left, states that he is red flagged there (psych/substance abuse), pain currently 4/10, pt normotensive on assessment (120/85), states that he feels dehydrated currently, denies any recent illness or other complaints at this time. Normal [facility] Laboratory - Chemistry and C hemistry - challengeon 06-14-2021 Albumin BCP dye [Mass/Vol] 4.1 g/dL 3.4 - 5.[address] Work Phone: [phone] ALP [Catalytic activity/Vol] 52 U/L 33 - [address] Work Phone: [phone] ALT With P-5'-P [Catalytic activity/Vol] 21 U/L 10 - [address] Work Phone: [phone] Comment on above: Patients treated wit h Sulfasalazine may generate falsely decreased results for ALT. Anion gap [Moles/Vol] 11 mmol/L 10 - [address] Work Phone: [phone] AST With P-5'-P [Catalytic activity/Vol] 16 U/L 9 - [address] Work Phone: [phone] Bilirubin [Mass/Vol] 0.3 mg/dL 0.0 - 1.[address] Work Phone: [phone] Calcium [Mass/Vol] 8.9 mg/dL 8.6 - 10.[address] Work Phone: [phone] Chloride [Moles/Vol] 106 mmol/L 98 - [address] Work Phone: [phone] CO2 [Moles/Vol] 25 mmol/L 21 - [address] Work Phone: [phone] Creatinine [Mass/Vol] 0.99 mg/dL See Below [address] Work Phone: [phone] Comment on above: Reference Range: 0.5 0 - 1.30 Glucose [Mass/Vol] 115 mg/dL above high threshold 74 - [address] Work Phone: [phone] Potassium [Moles/Vol] 4.3 mmol/L 3.5 - 5.[address] Work Phone: [phone] Protein [Mass/Vol] 6.8 g/dL 6.4 - 8.[address] Work Phone: [phone] Sodium [Moles/Vol] 138 mmol/L 136 - [address] Work Phone: Urea nitrogen [Mass/Vol] 12 mg/dL 6 - [address] Work Phone: Laboratory - Drug toxicology on 06-14-2021 Amphetamines Screen Ql (U) Negative NEGATIVE [address] Work Phone: Comment on above: CUTOFF LEVEL: 500 NG /ML Cross-reactivity has been reported with high concentrations of the following drugs: buproprion, chloroquine, chlorpromazine, ephedrine, mephentermine, fenfluramine, phentermine, phenylpropanolamine, pseudoephedrine, and propranolol. Barbiturates Screen Ql (U) Negative NEGATIVE [address] Work Phone: Comment on above: CUTOFF LEVEL: 200 NG /ML Benzodiazepines Ql (U) Negative NEGATIVE [address] Work Phone: Comment on above: CUTOFF LEVEL: 200 NG /ML Benzoylecgonine Screen Ql (U) Negative NEGATIVE [address] Work Phone: Comment on above: CUTOFF LEVEL: 150 NG /ML Cannabinoids Screen Ql (U) Negative NEGATIVE [address] Work Phone: Comment on above: CUTOFF LEVEL: 50 NG/ ML Methadone Screen Ql (U) Negative NEGATIVE [address] Work Phone: Comment on above: CUTOFF LEVEL: 150 NG /ML The metabolite W-hioix-lzqgarcsizppdp (LAAM) is not detected by this method in concentrations that would be found in the urine of patients on LAAM therapy. Opiates Screen Ql (U) Negative NEGATIVE [address] Work Phone: Comment on above: CUTOFF LEVEL: 300 NG /ML The opiate screen does not detect fentanyl, meperidine, or tramadol. Oxycodone is not consistently detected (refer to Oxycodone Screen, Urine result). oxyCODONE+oxyMORphone Screen Ql (U) Negative NEGATIVE [address] Work Phone: Comment on above: CUTOFF LEVEL: 100 NG /ML This test will accurately detect both oxycodone and oxymorphone. Phencyclidine Ql (U) Negative NEGATIVE [address] Work Phone: Comment on above: CUTOFF LEVEL: 25 NG/ ML Cross-reactivity has been reported with dextromethorphan. No Panel Informationon 06-14 [address] Work Phone: Comment on above: Drug screen results are presumptive and should not be used to assess compliance with prescribed medication. Contact the performing [facility] laboratory to add-on definitive confirmatory testing if clinically indicated. .Toxicology screening results are reported qualitatively. The concentration must be greater than or equal to the cutoff to be reported as positive. The concentration at which the screening test can detect an individual drug or metabolite varies. The absence of expected drug(s) and/or drug metabolite(s) may indicate non-compliance, inappropriate timing of specimen collection relative to drug administration, poor drug absorption, diluted/adulterated urine, or limitations of testing. For medical purposes only; not valid for forensic use. .Interpretive questions should be directed to the laboratory medical directors. >60 >[address] Work Phone: Comment on above: CALCULATIONS OF NIKOLE MATED GFR ARE PERFORMED USING THE MDRD STUDY EQUATION FOR THE IDMS-TRACEABLE CREATININE METHODS. CLIN CHEM 2007;53:766-72 Provider Note - ED v3on 05-25 Provider Note - ED v3 Provider Note: Chart Review: ED NOTES ED NOTES: Hosea Padilla is a 50 year old male who presents to [facility] ED for right chest pressure and high blood pressure beginning earlier this morning. Pertinent medical history includes renal stenosis, bipolar 2 disorder, and PTSD. He reported history of ascending aortic aneurysm which is currently being observed. Pt stated that he took three extra clonidine alongside his usual medication of metoprolol and losartan. He denied radiation of pain to his arms or jaw, dyspnea, shortness of breath, diaphoresis, palpitations, or headache. Pt also denied nausea, vomiting, diarrhea, or abdominal pain. He did not have any lower extremity edema or pain. Pt came to the [facility] ED yesterday on 06/13 for similar symptoms and chest pain after riding his bike. It was explained that hypertension may continue to occur until renal stenosis is repaired with stent. He has a history of repetitive complaints to the ED for similar complaints. EKG was completed showing normal sinus rhythm with 70 bpm. Pt has shown to have a fixation with chest pressure without pertinent cardiac symptoms on physical exam. Due to patient's psychiatric history, fixation, and repetitive visits to the ED, psychiatry consult ordered. HISTORY OF PRESENTING ILLNESS HOSEA is a 50 year old Male and was seen by me at 14-Jun-2021 07:42 for a chief complaint of hypertension. The historian is the patient. Triage Information: Most recent Vital Sign Value Date Temp (F): 97.6 06-14-2021 07:34 Temp (C): 36.4 06-14-2021 07:34 Heart Rate (beats/min): 73 06-14-2021 07:34 Respirations (breaths/min): 18 06-14-2021 07:34 SpO2 (%): 97 06-14-2021 07:34 BP Systolic (mm Hg): 121 06-14-2021 07:34 BP Diastolic (mm Hg): 83 06-14-2021 07:34 PAST MEDICAL HISTORY CURRENT OR FORMER SUBSTANCE USE: Tobacco/Nicotine Use: former smoker Alcohol Use: occasionally Drug Use: denies,ALLERGIES/INTOLER ANCES: Allergy Allergen: Erythromycin Base Type: Drug Reaction: Unknown Allergen: caffine Type: Food Reaction: Other Allergen: Cipro Type: Drug Reaction: Unknown Intolerance Allergen: polyethylene glycol 3350 Type: Drug Reaction: GI Upset HEALTH HISTORY: Family History Name:No family history of cancer Code:Z78.9 Name:No family history of coronary artery disease Code:Z78.9 Medical History Name:Chest pain Code:R07.9 Name:Renal artery stenosis Code:I70.1 Name:Pulmonary embolism Code:I26.99 Name:History of COVID-19 Code:Z86.16 Name:Ascending aortic aneurysm Code:I71.2 Name:Bipolar disorder Code:F31.9 Name:Palpitations Code:R00.2 Social History Name:Homeless Code:Z59.0 Name:Does not use illicit drugs Code:Z78.9 Name:Consumes alcohol occasionally Code:Z78.9 Name:Former smoker Code:Z87.891 OUTPATIENT MEDICATIONS: Home Medications Review Status for Reconciliation: N/A Med Status: Patient Currently Takes Medications Drug Name: losartan 50 mg oral tablet Instructions: 1 tab(s) orally once a day Drug Name: pantoprazole 40 mg oral delayed release tablet Instructions: 1 tab(s) orally once a day Drug Name: Lidocaine Viscous 2% mucous membrane solution Instructions: Apply topically to affected area 3 times a day (before meals) Drug Name: metoprolol tartrate 25 mg oral tablet Instructions: 1 tab(s) orally once a day Drug Name: cloNIDine 0.1 mg oral tablet Instructions: 1 tab(s) orally once a day, Drug Name: metoprolol succinate 25 mg oral tablet, extended release Instructions: 1 tab(s) orally once a day SIGNIFICANT EVENTS: Past Medical History Description:Hypertension (HTN) Description:Abdominal Aortic Aneurysm (AAA) Description:Heart murmur Description:Arrythmia Additional Notes: inverted T waves Description:RENAL STENOSIS Description:intestinal tumor REVIEW OF SYSTEMS CONSTITUTIONAL: Negative for: chills, diaphoresis and fever CARDIOVASCULAR: Negative for: chest pain, diaphoresis, edema, irregular rhythm, palpitations and tachycardia RESPIRATORY: Negative for: cough and wheezing GASTROINTESTINAL: Negative for: abdominal pain, constipation, diarrhea, nausea and vomiting; MUSCULOSKELETAL: Negative for: back pain, joint pain and neck pain All other systems reviewed and are negative PHYSICAL EXAM CONSTITUTIONAL: Well appearing, well nourished, awake, alert, oriented to person, place, time/situation and in no apparent distress. HENMT: Airway patent, Face with no lymph node enlargement. EYES: Clear bilaterally, EOMI CARDIOVASCULAR: Normal rate, regular rhythm. Heart sounds S1, S2. No murmurs, rubs or gallops. PMI non-displaced. RESPIRATORY: Breath sounds clear and equal bilaterally. GASTROINTESTINAL: Abdomen soft, non-distended, no rebound, no guarding. Bowel sounds normal in all 4 quadrants. MUSCULOSKELETAL: Spine appears normal, range of mot (more content not included)... Normal [facility] Risk Screen - Adult Emergenc yon 06-14-2021 Risk Screen - Adult Emergency Preferred Language: Preferred Language: Preferred Language for Discussing Health Care (patient/designee)Fran villalta Advanced Directives: Advance Directive/DNRno Family Violence Adult: Abuse Screen: Are you or have you been threatened or abused physically, emotionally, or sexually by anyoneno Learning Assessment (Patient): Learning Assessment (Patient): Patient is Able to be Assessed for Learningyes Factors Influencing Readiness to Learninterest in learning Factors that Impact Ability to Learnnone Devices/Methods Used to Communicatenone Learning Preferencesverbal instruction Cultural Considerationsnone Developmental Considerationsnone Zoroastrian Considerationsnone Learning Assessment (Other Learner): Learning Assessment (Other Learner): Other learner availableno Pressure Injury/TB/Substance: Pressure Injury: Pressure Injury Present on Admissionno Do you have a coughno Smoking Statusnever smoker (1) Admission Risk Screen: Significant IndicatorsComplete CAGE: CAGE: Is this an injured patient at a Trauma Center ([facility]/[place] /[place]): no Electronic Signatures: Tamika Messina) (Signed 14-Jun-2021 07:37) Authored: Preferred Language, Advanced Directives, Family Violence Adult, Learning Assessment (Patient), Learning Assessment (Other Learner), Pressure Injury/TB/Substance, Pressure Injury, CAGE Last Updated: 14-Jun-2021 07:37 by Tamika Messina (MANAS) References: 1. Data Referenced From Risk Screen - Adult Emergency 13-Jun-2021 11:54 Normal [facility] SALICYLATEon 06-14-2021 SALICYLATE <3 Normal 4 - 20 [facility] Comment on above: Performed By: #### S ALIC ####[facility] [place], [place] [id number] TROPONIN Ion 06-14-2021 Troponin I.cardiac [Mass/Vol] ng/mL Normal 0.00 - 0.03 [facility] Comment on above: Result Comment: LESS THAN 0.04 NG/ML: NEGATIVE REPEAT TESTING IN THREE TO SIX HOURS IF CLINICALLY INDICATED. 0.04 - 0.5 NG/ML: CONSISTENT WITH POSSIBLE CARDIAC DAMAGE AND POSSIBLE INCREASED CLINICAL RISK. SERIAL MEASUREMENTS MAY HELP ASSESS EXTENT OF MYOCARDIAL DAMAGE. >0.5 NG/ML: CONSISTENT WITH CARDIAC DAMAGE, INCREASED CLINICAL RISK AND MYOCARDIAL INFARCTION. SERIAL MEASUREMENTS MAY HELP ASSESS EXTENT OF MYOCARDIAL DAMAGE. . Note: Troponin I testing is performed using different testing methodology at [facility] than at other [facility]. Direct result comparisons should only be made within the same method. Performed By: #### U A #### [facility] [address] [place], [place] [id number] TSHon 06-14-2021 TSH Qn 1.03 m[IU]/L Normal 0.44 - 3.98 [facility] Comment on above: Result Comment: TSH testing is performed using different testing methodology at [facility] than at other [facility]. Direct result comparisons should only be made within the same method. Performed By: #### T SH2 ####[facility] [place], [place] [id number] TSH - Thyroid Stimulating Ho rmone, Serumon 06-14-2021 TSH Qn 1.03 m[IU]/L See Below Venkatesh ECHEVARRIA 160 Work Phone: Comment on above: Reference Range: 0.4 4 - 3.98 TSH testing is performed using different testing methodology at [facility] than at other [facility]. Direct result comparisons should only be made within the same method. Triage - EDon 06-14-2021 Triage - ED Chart Review: ARRIVAL INFORMATION Mode of Arrival: ambulance Agency Name: [facility] CHIEF COMPLAINT HOSEA ALVAREZ is a Male patient with a chief complaint of (per pt high BP this morning and left upper chest tightness). Triage Date/Time: 14-Jun-2021 07:31 WILMAN: 3 Vital Signs: Temperature: 97.6F ( 36.4C) taken temporal Blood Pressure: 121/83 Mean: Heart Rate: 73 Respiratory Rate: 18 Pulse Oximetry: 97% on room air, no respiratory support. Height: 5 feet 6.00 inches. 167.6 CM Weight: 189.5 pounds. Calculated 86.0 kg. (stated) Calculated BMI (kg/m2): 30.616 Calculated BSA (m2) 2.00 Lynda Coma Scale: Best Eye Response: (E4) spontaneous Best Motor Response: (M6) obeys commands Best Verbal Response: (V5) oriented [place] Score: 15 Cough lasting greater than 3 weeks: no Allergies: yes Patient has homicidal thoughts: no Risk Screens Suicide Risk Screen In the Past Month: Have you wished you were or wished you could go to sleep and not wake up no In the Past Month: Have you had any actual thoughts of killing yourself no In Your Lifetime: Have you ever done anything, started to do anything, or prepared to do anything to end your life no Molina Fall Scale Screening Has the patient fallen before (or is the patient in the ED as a result of a fall) has not had a fall Does the patient have an impaired gait does not have impaired gait Is the patient cognitively impaired not cognitively impaired Interventions: Molina Fall Interventions: LOW INTERVENTIONS: *patient oriented to surroundings and call system, * patient/family falls education completed and documented, *patients fall status communicated during bedside handoff, *whiteboard updated, *mode of toileting discussed with patient, *bed in low position with brakes locked, *call light in reach, * non-skid footwear TRAVEL HISTORY Travel History Coronavirus Screening: no exposure or symptoms Travel Exposure History: NO travel to International locations in the past 30 days PAIN Pain Scale Used: SHANNON Past Medical History: Past Medical History Reviewedyes Electronic Signatures: Tamika Messina (MANAS) (Signed 14-Jun-2021 07:37) Authored: Quick Triage, Risk Screens, Pain, Travel History, Chart Review, Past Medical History Last Updated: 14-Jun-2021 07:37 by Tamika Messina (MANAS) Normal [facility] Troponin I, Serumon 06-14-20 21 Troponin I.cardiac [Mass/Vol] ng/mL See Below [address] - [facility] 160 Work Phone: Comment on above: Reference Range: 0.0 0 - 0.03LESS THAN 0.04 NG/ML: NEGATIVEREPEAT TESTING IN THREE TO SIX HOURSIF CLINICALLY INDICATED.0.04 - 0.5 NG/ML: CONSISTENT WITH POSSIBLECARDIAC DAMAGE AND POSSIBLE INCREASEDCLINICAL RISK.SERIAL MEASUREMENTS MAY HELP ASSESS EXTENT OFMYOCARDIAL DAMAGE.>0.5 NG/ML: CONSISTENT WITH CARDIAC DAMAGE,INCREASED CLINICAL RISK AND MYOCARDIALINFARCTION. SERIAL MEASUREMENTS MAY HELPASSESS EXTENT OF MYOCARDIAL DAMAGE..Note: Troponin I testing is performed using different testing methodology at [facility] than at [facility]. Direct result comparisons should only be made within the same method. URINALYSISon 06-14-2021 Appearance (U) CLEAR Normal CLEAR [facility] Comment on above: Performed By: #### U A ####[facility] [facility] [place], [place] [phone] Bilirubin Ql (U) Negative Normal NEGATIVE [facility] Comment on above: Performed By: #### U A ####[facility] [facility] [place], [place] [id number] Color (U) STRAW Normal STRAW,YELLOW [facility] Comment on above: Performed By: #### U A ####[facility] [facility] [place], [place] [phone] Glucose Ql (U) Negative [facility]IVE [facility] Comment on above: Performed By: #### U A ####[facility] [facility] [place], [place] [phone] Hemoglobin Ql (U) Negative Normal NEGATIVE [facility] Comment on above: Performed By: #### U A ####[facility] [facility] [place], [place] [phone] Ketones Ql (U) Negative Normal NEGATIVE [facility] Comment on above: Performed By: #### U A ####[facility] [facility] [place], [place] [phone] Leukocyte esterase Test strip Ql (U) Negative Normal NEGATIVE [facility] Comment on above: Performed By: #### U A ####[facility] [facility] [place], [place] [phone] Nitrite Ql (U) Negative Normal NEGATIVE [facility] Comment on above: Performed By: #### U A ####[facility] [facility] [place], [place] [phone] pH (U) 5.0 [pH] Normal 5.0 - 8.0 [facility] Comment on above: Performed By: #### U A ####[facility] [facility] [place], [place] [phone] Protein Ql (U) Negative Normal NEGATIVE [facility] Comment on above: Performed By: #### U A ####[facility] [facility] [place], [place] [phone] Specific gravity (U) [Rel density] 1.003 Low 1.005 - 1.035 [facility] Comment on above: Performed By: #### U A ####[facility] [facility] [place], [place] [phone] Urobilinogen (U) [Mass/Vol] mg/dL Normal 0.0 - 1.9 [facility] Comment on above: Performed By: #### U A ####[facility] [facility] [place], [place] [phone] Urinalysison 06-14-2021 Color (U) STRAW See Below [address] - [facility] [address] Work Phone: [phone] Comment on above: Reference Range: STR AW,YELLOW Glucose Ql (U) Negative NEGATIVE [facility] [address] - [facility] [address] Work Phone: [phone] Ketones Ql (U) Negative NEGATIVE [facility] - [facility] [address] Work Phone: [phone] Leukocyte esterase Test strip Ql (U) Negative NEGATIVE [address] [facility] [address] Work Phone: [phone] pH (U) 5.0 [pH] 5.0 - 8.[address] [facility] [address] Work Phone: [phone] Protein (U) [Mass/Vol] Negative NEGATIVE [address] [facility] [address] Work Phone: [phone] RBC (U) [#/Vol] Negative NEGATIVE [address] [facility] [address] Work Phone: [phone] Specific gravity (U) [Rel density] 1.003 1 below low threshold See Below [address] - [facility] [address] Work Phone: [phone] Comment on above: Reference Range: 1.0 05 - 1.035 Urinalysis Negative NEGATIVE [address] [facility] [address] Work Phone: [phone] Comment on above: CUTOFF LEVEL: 1 NG/M L Urinalysis <2.0 0.0 - 1.[address] [facility] [address] Work Phone: [phone] Urinalysis CLEAR CLEAR [address] [facility] [address] Work Phone: Discharge Planning [id number] 06-13-2021 Discharge Planning Note2 Discharge Planning: Anticipated Discharge [id number] Discharge Planning 06-13-21 1319 SW was asked by front lobby hand edge bander to come to the front lobby as someone was requesting to see SW - pt had already been d/c from the ED. DAVID is familiar with pt from previous ED visits in which pt has repeatedly needed redirection to appropriate resources for insurance, case management, appropriate medical treatment, etc. Pt has a hx of needing encouragement form security to leave [facility]. Pt has a hx of homelessness and PTSD, says he goes back and forth between [place] and [place]. Pt is well aware of area resources and knows how to access them. Pt began conversation by lamenting that records aren't easily shared between [facility] and . He named several people he has talked to about his concerns and then volunteered to this medical underwriter that he does have a CM thru [facility], Adrianne Davis who has been making some appts for him. Pt was asked what he said needed help with today. He said he that he is trying to move an endoscopy appt from the to tomorrow. Pt said that he cannot make the appt on the because of matters he needs to take care of in [place], [place] regarding getting a stimulus check cashed. Pt said he has been trying to get thru to the appt line but has had no luck leaving messages - pt asked if this clinical social work therapist had any other options or people she knew to help him. SW researched endoscopy scheduling on the website and informed him that the [phone] is the only option for scheduling. Pt assented, declined to move [place] matters around so he could make his 06/21 appt. Pt offered area in front lobby to charge his phone while making call. Pt did say he planned to leave the lobby by 1:15 pm. Saddle Maker informed. Merissa Acevedo [facility] Assessment: Discharge Planning Assessment [id number] Electronic Signatures: Merissa Acevedo (DAVID) (Signed 14-Jun-2021 10:47) Authored: Discharge Planning, Assessment Last Updated: 14-Jun-2021 10:47 by Merissa Acevedo) Normal [facility] Provider Note - ED v2on 05-25 Provider Note - ED v2 Provider Note - ED v2: Chart Review: ED NOTES ED NOTES: Chief complaint; patient brought by EMS after having concerns about elevated blood pressure requesting nitro in transport patient EMS refused them patient claims chest pain was given then full dose aspirin as well as nitro History of present illness; this is a 50-year-old male with known bipolar 2 disorder as well as posttraumatic stress. Patient has multiple comorbid conditions that include essential hypertension renal artery stenosis which attributes to his secondary cause for hypertension as well as reported history of an ascending aortic aneurysm which is undergoing surveillance. Patient while riding his bike called EMS for transport he felt he had concerns his blood pressure might be elevated in spite of what appears to be good compliance with antihypertensive meds after EMS refused to give nitro for the purpose of his blood pressure he claims chest pain. Patient had otherwise stable vital signs as indicated complains of chest discomfort which he localizes to the left upper quadrant in the region of the left pectoral muscle inserts. No pressure-like chest pain no associated nausea vomiting or diaphoresis. Denies any infectious component denying any recent cough or sputum production or any complaints of dyspnea denies orthopnea and denies nocturnal dyspnea HISTORY OF PRESENTING ILLNESS HOSEA is a 50 year old Male and was seen by me at 13-Jun-2021 11:49 for a chief complaint of hypertension . Other complaints include: pt presents to ED via EMS with increased BP-pt requested ASA and nitro after complaining of left side chest pain en route-pts BP stable upon arrival to ED . Triage Information: Most recent Vital Sign Value Date Temp (F): 97.9 06-13-2021 11:49 Temp (C): 36.6 06-13-2021 11:49 Heart Rate (beats/min): 77 06-13-2021 11:49 Respirations (breaths/min): 18 06-13-2021 11:49 SpO2 (%): 98 06-13-2021 11:49 BP Systolic (mm Hg): 130 06-13-2021 11:49 BP Diastolic (mm Hg): 94 06-13-2021 11:49 PAST MEDICAL HISTORY ATTESTATION: I have reviewed and confirmed nurse's/medic's notes for patient's medications, allergies, and medical, surgical, family and social history ALLERGIES/INTOLERANCES: Allergy Allergen: Erythromycin Base Type: Drug Reaction: Unknown Allergen: caffine Type: Food Reaction: Other Allergen: Cipro Type: Drug Reaction: Unknown Intolerance Allergen: polyethylene glycol 3350 Type: Drug Reaction: GI Upset HEALTH HISTORY: Family History Name:No family history of cancer Code:Z78.9 Name:No family history of coronary artery disease Code:Z78.9 Medical History Name:Chest pain Code:R07.9 Name:Renal artery stenosis Code:I70.1 Name:Pulmonary embolism Code:I26.99 Name:History of COVID-19 Code:Z86.16 Name:Ascending aortic aneurysm Code:I71.2 Name:Bipolar disorder Code:F31.9 Name:Palpitations Code:R00.2 Social History Name:Homeless Code:Z59.0 Name:Does not use illicit drugs Code:Z78.9 Name:Consumes alcohol occasionally Code:Z78.9 Name:Former smoker Code:Z87.891 OUTPATIENT MEDICATIONS: Home Medications Review Status for Reconciliation: N/A Med Status: Patient Currently Takes Medications Drug Name: losartan 50 mg oral tablet Instructions: 1 tab(s) orally once a day Drug Name: pantoprazole 40 mg oral delayed release tablet Instructions: 1 tab(s) orally once a day Drug Name: Lidocaine Viscous 2% mucous membrane solution Instructions: Apply topically to affected area 3 times a day (before meals) Drug Name: metoprolol tartrate 25 mg oral tablet Instructions: 1 tab(s) orally once a day Drug Name: cloNIDine 0.1 mg oral tablet Instructions: 1 tab(s) orally once a day, Drug Name: metoprolol succinate 25 mg oral tablet, extended release Instructions: 1 tab(s) orally once a day SIGNIFICANT EVENTS: Past Medical History Description:Hypertension (HTN) Description:Abdominal Aortic Aneurysm (AAA) Description:Heart murmur Description:Arrythmia Additional Notes: inverted T waves Description:RENAL STENOSIS Description:intestinal tumor REVIEW OF SYSTEMS CONSTITUTIONAL: Negative for: anorexia, chills, diaphoresis, fever, malaise, weakness and weight loss EYES: Negative for: itching, lacrimation, lid swelling, pain, photophobia, redness and vision changes ENMT Ears: Negative for: discharge, itching, hearing disturbance, hearing loss, pain and tinnitus Nose: Negative for: congestion, discharge, nose bleeds, obstruction and sneezing Mouth/Teeth: Negative for: gum bleeding, mouth lesions, tooth caries, tooth trauma and toothache Throat/Neck: Negative for: dysphagia, hoarseness, throat lesions, throat pain, neck lumps, neck pain, neck stiffness and swollen glands CARDIOVASCULAR: (Concerns for his elevated blood pressure acknowledges a history of (more content not included)... Normal [facility] Risk Screen - Adult Emergenc yon 06-13-2021 Risk Screen - Adult Emergency Preferred Language: Preferred Language: Preferred Language for Discussing Health Care (patient/designee)Fran villalta Advanced Directives: Advance Directive/DNRno Family Violence Adult: Abuse Screen: Are you or have you been threatened or abused physically, emotionally, or sexually by anyoneno Learning Assessment (Patient): Learning Assessment (Patient): Patient is Able to be Assessed for Learningyes Factors Influencing Readiness to Learninterest in learning Factors that Impact Ability to Learnnone Devices/Methods Used to Communicatenone Learning Preferencesverbal instruction Cultural Considerationsnone Developmental Considerationsnone Zoroastrian Considerationsnone Learning Assessment (Other Learner): Learning Assessment (Other Learner): Other learner availableno Pressure Injury/TB/Substance: Pressure Injury: Pressure Injury Present on Admissionno Do you have a coughno Smoking Statusnever smoker Admission Risk Screen: Significant IndicatorsComplete CAGE: CAGE: Is this an injured patient at a Trauma Center ([facility]/[place] /[place]): no Electronic Signatures: Kasey Campos (BROOKLYNN) (Signed 13-Jun-2021 11:54) Authored: Preferred Language, Advanced Directives, Family Violence Adult, Learning Assessment (Patient), Learning Assessment (Other Learner), Pressure Injury/TB/Substance, Pressure Injury, CAGE Last Updated: 13-Jun-2021 11:54 by Kasey Campos (BROOKLYNN) Normal [facility] Triage - EDon 06-13-2021 Triage - ED Chart Review: PRIMARY ASSESSMENT HOSEAOSIEL ALVAREZ's primary assessment is Within Defined Limits. The airway is open and patent. Breathing spontaneous and unlabored with clear breath sounds bilaterally. Circulation is normal with good peripheral pulses. Skin is warm and dry and color is normal for race. ARRIVAL INFORMATION Means of Arrival: stretcher Mode of Arrival: ambulance Agency: City Agency Name: [facility] Arrival From: home CHIEF COMPLAINT HOSEA ALVAREZ is a Male patient with a chief complaint of hypertension. Onset of the Complaint: 13-Jun-2021 Other Complaints: pt presents to ED via EMS with increased BP-pt requested ASA and nitro after complaining of left side chest pain en route-pts BP stable upon arrival to ED Triage Date/Time: 13-Jun-2021 11:49 WILMAN: 3V Vital Signs: Temperature: 97.9F ( 36.6C) Blood Pressure: 130/94 Mean: Heart Rate: 77 Respiratory Rate: 18 Pulse Oximetry: 98% Height: 5 feet 6.00 inches. 167.6 CM Weight: 189.5 pounds. Calculated 86.0 kg. Calculated BMI (kg/m2): 30.616 Calculated BSA (m2) 2.00 Lynda Coma Scale: Best Eye Response: (E4) spontaneous Best Motor Response: (M6) obeys commands Best Verbal Response: (V5) oriented [place] Score: 15 Allergies: yes Patient has homicidal thoughts: no Symptoms Are Negative For: anxiety, chills, diaphoresis, dyspnea, headache, loss of consciousness, nausea, numbness, pain, tingling and weakness Risk Screens Suicide Risk Screen In the Past Month: Have you wished you were or wished you could go to sleep and not wake up no In the Past Month: Have you had any actual thoughts of killing yourself no In Your Lifetime: Have you ever done anything, started to do anything, or prepared to do anything to end your life no Molina Fall Scale Screening Has the patient fallen before (or is the patient in the ED as a result of a fall) has not had a fall Does the patient have an impaired gait does not have impaired gait Is the patient cognitively impaired not cognitively impaired Interventions: Molina Fall Interventions: LOW INTERVENTIONS: *patient oriented to surroundings and call system, * patient/family falls education completed and documented, *patients fall status communicated during bedside handoff, *whiteboard updated, *mode of toileting discussed with patient, *bed in low position with brakes locked, *call light in reach, * non-skid footwear PAST MEDICAL HISTORY Immunization History: Last Known Tetanus Immunization: Unknown TRAVEL HISTORY Travel History Coronavirus Screening: no exposure or symptoms Travel Exposure History: NO travel to International locations in the past 30 days PAIN Pain Scale Used: SHANNON Past Medical History: Past Medical History Reviewedyes Electronic Signatures: Kasey Campos (BROOKLYNN) (Signed 13-Jun-2021 11:53) Authored: Quick Triage, Risk Screens, Pain, Arrival, ABCD, Immunizations, Travel History, Chart Review, Scores, Past Medical History Last Updated: 13-Jun-2021 11:53 by Kasey Campos) Normal [facility] Laboratory - Chemistry and C hemistry - challengeon 06-12-2021 Bilirubin Ql (U) Bili NEGATIVE (NEG ) [facility] pH (U) Urine pH 5.0 (4.6-8.0 ) 4.6 - 8.0 L HS Specific gravity (U) [Rel density] Urine Sp [place] 1.009 (1.005-1.030 ) 1.005 - 1.030 [facility] Troponin T.cardiac [Mass/Vol] HS Troponin T,Gen 5 6 NG/L (-<15 NG/L) Sex Specific Reference Range: Male (0-22), Female (0-14) Change(Delta) >=5 is significant Troponin Baseline and Serial elevation for significant change(delta)should be interpreted in conjunction with clinical presentation, history, signs and symptoms, ECG and biomarker concentrations. Troponin elevation can be seen in several other non-infarct conditions. Chronic troponin elevations can be detected in clinically stable patients with heart failure, cardiomyopathy, renal failure, diabetes, etc. Elevated troponin can also occur in myocarditis, heart contusion, PE, drug induced cardiotoxicity, etc. Samples should NOT be taken from patients receiving high dose biotin (> 5mg) doses until 8 hours following last biotin administration. [facility] Urobilinogen Ql (U) Uro NORMAL MG/DL (0- 1.0 MG/DL) 0 - 1.0 MG/DL [facility] Anion gap [Moles/Vol] Anion Gap 14 MMOL/ L (0-19 MMOL/L) 0 - 19 MMOL/L [facility] Calcium [Mass/Vol] Calcium 8.7 MG/DL (8.5-10.4 MG/DL) 8.5 - 10.4 MG/DL [facility] Chloride [Moles/Vol] Chloride 103 MMOL/L (97-107 MMOL/L) 97 - 107 MMOL/L [facility] CO2 [Moles/Vol] Carbon Dioxide 19 MM OL/L L (24-31 MMOL/L) Low 24 - 31 MMOL/L [facility] Creatinine [Mass/Vol] Creatinine R 0.9 M G/DL (0.4-1.6 MG/DL) 0.4 - 1.6 MG/DL [facility] GFR/1.73 sq M.predicted MDRD (S/P/Bld) [Vol rate/Area] EGFR 95 mL/min/1.73 m2 (Reference Range: not available) GFR ml/min/1.73m2 Stage ----- 90 1 60-89 2 30-59 3 15-29 4 <15 5 For -Americans, multiply EGFR result by 1.210 Calculation not validated for patients under 18 years of age. Performed at [address] [address] [facility] Glucose [Mass/Vol] Glucose 89 MG/DL (65 -99 MG/DL) 65 - 99 MG/DL [facility] Potassium [Moles/Vol] Potassium R 4.2 MM OL/L (3.4-5.1 MMOL/L) 3.4 - 5.1 MMOL/L [facility] Sodium [Moles/Vol] Sodium 136 MMOL/L (133-145 MMOL/L) 133 - 145 MMOL/L [facility] Troponin T.cardiac [Mass/Vol] HS Troponin T,Gen 5 6 NG/L (-<15 NG/L) Sex Specific Reference Range: Male (0-22), Female (0-14) Change(Delta) >=5 is significant Troponin Baseline and Serial elevation for significant change(delta)should be interpreted in conjunction with clinical presentation, history, signs and symptoms, ECG and biomarker concentrations. Troponin elevation can be seen in several other non-infarct conditions. Chronic troponin elevations can be detected in clinically stable patients with heart failure, cardiomyopathy, renal failure, diabetes, etc. Elevated troponin can also occur in myocarditis, heart contusion, PE, drug induced cardiotoxicity, etc. Samples should NOT be taken from patients receiving high dose biotin (> 5mg) doses until 8 hours following last biotin administration. [employer] Urea nitrogen [Mass/Vol] BUN 17 MG/DL (8-25 MG/DL) 8 - 25 MG/DL [facility] Urea nitrogen/Creatinine [Mass ratio] BUN Creatinine Ratio 18.9 RATIO (8-21 RATIO) 8 - 21 RATIO [facility] Laboratory - Coagulationon 0 06-12-2021 Fibrin D-dimer FEU (PPP) [Mass/Vol] D Dimer 0.24 MG/L FEU (0.19-0.50 MG/L FEU) THROMBOEMBOLIC EVENTS CANNOT BE EXCLUDED SOLELY ON THE BASIS OF THE D-DIMER LEVEL BEING WITHIN THE NORMAL REFERENCE RANGE. D-DIMER LEVELS LESS THAN 0.5 MG/L FEU IN CONJUNCTION WITH A LOW CLINICAL PROBABILITY HAVE AN EXCELLENT NEGATIVE PREDICTIVE VALUE IN EXCLUDING A DIAGNOSIS OF PULMONARY EMBOLUS (PE) OR DEEP VEIN THROMBOSIS (DVT). ELEVATED D-DIMER LEVELS ARE NOT SPECIFIC TO PE OR DVT, AND MAY BE SEEN IN PATIENTS WITH DIC, ADVANCED AGE, , MALIGNANCY, LIVER DISEASE, INFECTION, AND INFLAMMATORY CONDITIONS AMONG OTHERS. D-DIMER LEVELS MAY BE DECREASED IN PATIENTS RECEIVING ANTI-COAGULATION THERAPY. Performed at [address] [address] 0.19 - 0.50 MG/L FEU [facility] Laboratory - Hematology and Cell countson 06-12-2021 Hemoglobin Ql (U) Blood NEGATIVE (NEG ) [facility] Basophils (Bld) [#/Vol] Abs Baso 0.01 K/UL (0.00-0.22 K/UL) 0.00 - 0.22 K/UL [facility] Basophils/100 WBC (Bld) Basophil 0.30 % (0-1 %) 0 - 1 % [facility] Differential cell count method Nom (Bld) Diff Type AUTO DIFF (Reference Range: not available) [facility] Eosinophils (Bld) [#/Vol] Abs Eos 0.07 K/UL (0-0.45 K/UL) 0 - 0.45 K/UL [facility] Eosinophils/100 WBC (Bld) Eosinophil 2.20 % (0-3 %) 0 - 3 % [facility] Erythrocyte distribution width (RBC) [Entitic vol] RDW SD 39.0 FL (37.0-54.0 FL) 37.0 - 54.0 FL [facility] Erythrocyte distribution width (RBC) [Ratio] RDW CV 12.8 % (11.7-15.0 %) 11.7 - 15.0 % [facility] Hematocrit (Bld) [Volume fraction] HCT 39.3 % L (41-50 %) Low 41 - 50 % [facility] Hemoglobin (Bld) [Mass/Vol] HGB 13.0 GM/DL L (13.5-16.5 GM/DL) Low 13.5 - 16.5 GM/DL [facility] Immature granulocytes (Bld) [#/Vol] Abs Imm Neut 0.01 K/UL (0.0-0.1 K/UL) 0.0 - 0.1 K/UL [facility] Lymphocytes (Bld) [#/Vol] Abs Lymph 0.83 K/UL L (1.2-3.2 K/UL) Low 1.2 - 3.2 K/UL [facility] Lymphocytes/100 WBC (Bld) Lymphocyte 26.10 % (20-40 %) 20 - 40 % [facility] MCH (RBC) [Entitic mass] MCH 28.3 PG (26-34 PG) 26 - 34 PG [facility] MCHC (RBC) [Mass/Vol] MCHC 33.1 % (31-37 %) 31 - 37 % S MCV (RBC) [Entitic vol] MCV 85.4 FL (80-100 FL) 80 - 100 FL S Monocytes (Bld) [#/Vol] Abs Gage 0.32 K/UL (0-0.8 K/UL) 0 - 0.8 K/UL [facility] Monocytes/100 WBC (Bld) Monocyte 10.10 % H (0-8 %) High 0 - 8 % [facility] Neutrophils (Bld) [#/Vol] Abs.Neut.Calculated 1.94 K/UL (Reference Range: not available) Performed at [address] [address] [facility] Neutrophils (Bld) [#/Vol] Abs Neut 1.94 K/UL (1.8-7.7 K/UL) 1.8 - 7.7 K/UL [facility] Neutrophils.immature/ 100 WBC (Bld) Immature Neut % 0.30 % (0.0-1.0 %) 0.0 - 1.0 % [facility] Nucleated RBC/100 WBC (Bld) [Ratio] NRBCs 0 /100 WBC (0 /100 WBC) [facility] Platelet mean volume (Bld) [Entitic vol] MPV 11.6 CU (7.0-12.6 CU) 7.0 - 12.6 CU [facility] Platelets (Bld) [#/Vol] PLT 144 K/UL L (150-450 K/UL) Low 150 - 450 K/UL [facility] RBC (Bld) [#/Vol] RBC 4.60 M/UL (4.5-5 .5 M/UL) 4.5 - 5.5 M/UL [facility] Segmented neutrophils/100 WBC (Bld) Granulocyte 61.00 % (50-70 %) 50 - 70 % [facility] WBC (Bld) [#/Vol] WBC 3.2 K/UL L (4.5- 11.0 K/UL) Low 4.5 - 11.0 K/UL [facility] Laboratory - Specimen inform ationon 06-12-2021 Clarity (U) Urine Clarity CLEAR (Reference Range: not available) [facility] Color (U) Urin color COLORLESS (Reference Range: not available) [facility] Laboratory - Urinalysison Bacteria Auto Ql (U) Bacteria NEGATIVE (Reference Range: not available) [facility] Epithelial cells.squamous Auto Ql (U) Urine squamous epi NONE SEEN /HPF (Reference Range: not available) [facility] Glucose Auto test strip (U) [Mass/Vol] Gluc NEGATIVE mg/dL (NEG mg/dL) [facility] Hemoglobin Auto test strip Ql (U) RBC NONE SEEN /HPF (0-3 /HPF) 0 - 3 /HPF [facility] Hyaline casts Auto Ql (U) Urine hyaline cast NONE SEEN /LPF (Reference Range: not available) [facility] Ketones Auto test strip Ql (U) Urine Ketone TRACE A (NEG ) Abnormal [facility] Leukocyte esterase Auto test strip Ql (U) Leuk NEGATIVE (NEG ) [facility] Nitrite Auto test strip Ql (U) Nit NEGATIVE (NEG ) [facility] Protein (U) [Mass/Vol] Prot NEGATIVE mg/dL (NEG mg/dL) [facility] WBC Auto (Urine sed) [#/Area] WBC NONE SEEN /HPF (0-3 /HPF) 0 - 3 /HPF [facility] No Panel Informationon 06-12 HS Troponin T Delta 0 (0-4 ) Performed at [address] [address] 0 - 4 S Microscopic AUTOMATI C MICROSCOPIC URINES (Reference Range: not available) S Reflex to Urine Cult ure CULTURE NOT INDICATED Performed at [address] [address] (Reference Range: not available) S HS Troponin T Delta No previous result Performed at [address] [address] (0-4 ) 0 - 4 [facility] BNPon 06-07-2021 Natriuretic peptide B (Bld) [Mass/Vol] 30 pg/mL Normal 0 - 99 [facility] Comment on above: Result Comment: . <1 00 pg/mL - Heart failure unlikely 100-299 pg/mL - Intermediate probability of acute heart . failure exacerbation. Correlate with clinical . context and patient history. >=300 pg/mL - Heart Failure likely. Correlate with clinical . context and patient history. BNP testing is performed using different testing methodology at [facility] than at other [facility]. Direct result comparisons should only be made within the same method. Performed By: #### B NP2 #### [address] [address] CBC AND DIFFERENTIALon 06-07 % AUTOMATED IMMATURE GRAN 0.3 % Normal 0.0 - 0.9 [facility] Comment on above: Result Comment: Kath ture Granulocyte Count (IG) includes promyelocytes, myelocytes and metamyelocytes but does not include bands. Percent differential counts (%) should be interpreted in the context of the absolute cell counts (cells/L). Performed By: #### C BCDF #### [facility] [address] [place] [address] Basophils (Bld) [#/Vol] 0.02 10*3/uL Normal 0.00 - 0.10 [facility] Comment on above: Performed By: #### C BCDF #### [facility] [address] [place] [address] Eosinophils (Bld) [#/Vol] 0.09 10*3/uL Normal 0.00 - 0.70 [facility] Comment on above: Performed By: #### C BCDF #### [address] [address] Eosinophils/100 WBC (Bld) 2.7 % Normal 0.0 - 6.0 [facility] Comment on above: Performed By: #### C BCDF #### [address] [address] Lymphocytes (Bld) [#/Vol] 0.78 10*3/uL Low 1.20 - 4.80 [facility] Comment on above: Performed By: #### C BCDF #### [address] [address] Monocytes (Bld) [#/Vol] 0.44 10*3/uL Normal 0.10 - 1.00 [facility] Comment on above: Performed By: #### C BCDF #### [address] [address] Neutrophils (Bld) [#/Vol] 1.99 10*3/uL Normal 1.20 - 7.70 [facility] Comment on above: Performed By: #### C BCDF #### [address] [address] RBC 4.89 x10E12/L Normal 4.50 - 5.90 [facility] Comment on above: Performed By: #### C BCDF #### [address] [address] CHEST 1 VIEWon 06-07-2021 CHEST 1 VIEW STUDY: Chest Radiograph; 06/07/2021 8:40AM INDICATION: Chest pain. COMPARISON: 06/02/2021 XR Chest. ACCESSION NUMBER(S): [id number] ORDERING CLINICIAN: GRUPO SOUSA DO TECHNIQUE: Frontal chest was obtained at 09:16 hours. FINDINGS: CARDIOMEDIASTINAL SILHOUETTE: The heart is enlarged. LUNGS: Lungs are clear. ABDOMEN: No remarkable upper abdominal findings. BONES: No acute osseous changes. IMPRESSION: Cardiomegaly. No acute cardiopulmonary abnormality. Signed by Karson White MD Electronically signed by: KARSON WHITE MD Normal [facility] COMPREHENSIVE PANELon 2020 Albumin [Mass/Vol] 4.3 g/dL Normal 3.4 - 5.0 [facility] Comment on above: Performed By: #### C MP #### [facility] [address] [place] [address] ALP [Catalytic activity/Vol] 56 U/L 33 - [address] Work Phone: [phone] Comment on above: Performed By: #### C MP #### [address] [address] ALT [Catalytic activity/Vol] 26 U/L Normal 10 - 52 [facility] Comment on above: Result Comment: Yanni ents treated with Sulfasalazine may generate falsely decreased results for ALT. Performed By: #### C MP #### [facility] [address] [place] [address] Anion gap [Moles/Vol] 12 mmol/L 10 - [address] Work Phone: [phone] Comment on above: Performed By: #### C MP #### [facility] [address] [place] [address] AST [Catalytic activity/Vol] 20 U/L Normal 9 - 39 [facility] Comment on above: Performed By: #### C MP #### [address] [address] Bilirubin [Mass/Vol] 0.4 mg/dL 0.0 - 1.[address] Work Phone: [phone] Comment on above: Performed By: #### C MP #### [address] [address] Calcium [Mass/Vol] 9.4 mg/dL 8.6 - 10.[address] Work Phone: [phone] Comment on above: Performed By: #### C MP #### [address] [address] Chloride [Moles/Vol] 101 mmol/L 98 - [address] Work Phone: Comment on above: Performed By: #### C MP #### [address] [address] Creatinine [Mass/Vol] 0.97 mg/dL See Below [address] Work Phone: Comment on above: Reference Range: 0.5 0 - 1.30 Performed By: #### C MP #### [address] [address] GFR- AM. >60 Normal >60 [facility] Comment on above: Result Comment: CALC ULATIONS OF ESTIMATED GFR ARE PERFORMED USING THE MDRD STUDY EQUATION FOR THE IDMS-TRACEABLE CREATININE METHODS. CLIN CHEM 2007;53:766-72 Performed By: #### C MP #### [address] [address] GFR-NON AM. >60 Normal >60 [facility] Comment on above: Performed By: #### C MP #### [address] [address] Glucose [Mass/Vol] 103 mg/dL above high threshold 74 - [address] Work Phone: [phone] Comment on above: Performed By: #### C MP #### [address] [address] HCO3 (Bld) [Moles/Vol] 26 mmol/L Normal 21 - 32 [facility] Comment on above: Performed By: #### C MP #### [address] [address] Potassium [Moles/Vol] 4.0 mmol/L 3.5 - 5.[address] Work Phone: Comment on above: Performed By: #### C MP #### [address] [address] Protein [Mass/Vol] 7.5 g/dL 6.4 - 8.[address] Work Phone: Comment on above: Performed By: #### C MP #### [place] [address] Sodium [Moles/Vol] 135 mmol/L below low threshold 136 - [address] Work Phone: Comment on above: Performed By: #### C MP #### [place] [address] Urea nitrogen [Mass/Vol] 21 mg/dL 6 - [address] Work Phone: Comment on above: Performed By: #### C MP #### [place] [address] CORONAVIRUS 2019 BY PCRon SARS-CoV-2 (COVID-19) RNA TATI+probe Ql (Unsp spec) Not detected Normal Not Detected [facility] Comment on above: Result Comment: . This test has received FDA Emergency Use Authorization (EUA) and has been verified by [facility]. This test is only authorized for the duration of time that circumstances exist to justify the authorization of the emergency use of in vitro diagnostic tests for the detection of SARS-CoV-2 virus and/or diagnosis of COVID-19 infection under section 564(b)(1) of the Act, 21 U.S.C. 360bbb-3(b)(1), unless the authorization is terminated or revoked sooner. [facility] is certified under CLIA-88 as qualified to perform high complexity testing. Testing is performed in the [facility] laboratory located at [address] [place] [address]. SARS-CoV-2/Flu/RSV Multiplex Test: Fact sheet for providers: https://www.fda.gov/media/312387/download Fact sheet for patients: https://www.fda.gov/media/667989/download Performed By: #### C OV19 #### [place] [address] Lab Specimen Source Nasal, Nasopharyngeal Normal [facility] Comment on above: Performed By: #### C OV19 #### [address] [address] Complete Blood Count + Lorena conner 06-07-2021 Basophils/100 WBC (Bld) 0.6 % 0.0 - 2.[address] Work Phone: [phone] Comment on above: Performed By: #### C BCDF #### [address] [address] Erythrocyte distribution width (RBC) [Ratio] 13.1 % See Below [address] Work Phone: [phone] Comment on above: Reference Range: 11. 5 - 14.5 Performed By: #### C BCDF #### [address] [address] Hematocrit (Bld) [Volume fraction] 40.8 % below low threshold See Below [address] Work Phone: [phone] Comment on above: Reference Range: 41. 0 - 52.0 Performed By: #### C BCDF #### [address] [address] Hemoglobin (Bld) [Mass/Vol] 14.0 g/dL See Below [address] Work Phone: [phone] Comment on above: Reference Range: 13. 5 - 17.5 Performed By: #### C BCDF #### [address] [address] Lymphocytes/100 WBC (Bld) 23.4 % See Below [address] Work Phone: [phone] Comment on above: Reference Range: 13. 0 - 44.0 Performed By: #### C BCDF #### [address] [address] MCHC (RBC) [Mass/Vol] 34.3 g/dL See Below [address] Work Phone: [phone] Comment on above: Reference Range: 32. 0 - 36.0 Performed By: #### C BCDF #### [address] [address] MCV (RBC) [Entitic vol] 83 fL 80 - [address] Work Phone: [phone] Comment on above: Performed By: #### C BCDF #### [address] [address] Monocytes/100 WBC (Bld) 13.2 % 2.0 - 10.[address] Work Phone: [phone] Comment on above: Performed By: #### C BCDF #### [address] [address] Neutrophils/100 WBC (Bld) 59.8 % See Below [address] Work Phone: [phone] Comment on above: Reference Range: 40. 0 - 80.0 Performed By: #### C BCDF #### [address] [address] Platelets (Bld) [#/Vol] 148 10*3/uL below low threshold 150 - [address] Work Phone: [phone] Comment on above: Performed By: #### C BCDF #### [address] [address] WBC (Bld) [#/Vol] 3.3 10*3/uL below low threshold 4.4 - 11.[address] Work Phone: [phone] Comment on above: Performed By: #### C BCDF #### [address] [address] RBC (Bld) [#/Vol] 4.89 {x10E12/L} See Below [address] Work Phone: [phone] Comment on above: Reference Range: 4.5 0 - 5.90 Complete Blood Count + Differential 0.02 {x10E9/L} See Below [address] Work Phone: [phone] Comment on above: Reference Range: 0.0 0 - 0.10 Complete Blood Count + Differential 0.09 {x10E9/L} See Below [address] Work Phone: Comment on above: Reference Range: 0.0 0 - 0.70 Complete Blood Count + Differential 0.44 {x10E9/L} See Below [address] Work Phone: Comment on above: Reference Range: 0.1 0 - 1.00 Complete Blood Count + Differential 0.78 {x10E9/L} below low threshold See Below [address] Work Phone: Comment on above: Reference Range: 1.2 0 - 4.80 Complete Blood Count + Differential 1.99 {x10E9/L} See Below [address] Work Phone: Comment on above: Reference Range: 1.2 0 - 7.70 Complete Blood Count + Differential 2.7 % 0.0 - 6.[address] [facility] [address] Work Phone: Complete Blood Count + Differential 0.3 % 0.0 - 0.[address] [facility] [address] Work Phone: Comment on above: Immature Granulocyte Count (IG) includes promyelocytes, myelocytes and metamyelocytes but does not include bands. Percent differential counts (%) should be interpreted in the context of the absolute cell counts (cells/L). Coronavirus 2019 RNA by PCR, Symptomaticon 06-07-2021 Coronavirus 2019 RNA by PCR, Symptomatic Not detected Normal See Below [address] Work Phone: Comment on above: SOURCE: Nasal, Nasop haryngealReference Range: Not Detected.This test has received FDA Emergency Use Authorization (EUA) and has been verified by [facility]. This test is only authorized for the duration of time that circumstances exist to justify the authorization of the emergency use of in vitro diagnostic tests for the detection of SARS-CoV-2 virus and/or diagnosis of COVID-19 infection under section 564(b)(1) of the Act, 21 U.S.C. 360bbb-3(b)(1), unless the authorization is terminated or revoked sooner. [facility] is certified under CLIA-88 as qualified to perform high complexity testing. Testing is performed in the [facility] laboratory located at [address] [place] [address].SARS-CoV-2/Flu/RSV Multiplex Test: Fact sheet for providers: https://www.fda.gov/media/981271/downloadFact sheet for patients: https://www.fda.gov/media/906508/download Covid 19 Resultson 1 SARS-CoV-2 (COVID-19) RNA TATI+probe Ql (Unsp spec) NEGATIVE COVID-19 Test Coronaviruses are common world-wide and are the cause of many common colds. SARS-COV2 is a new coronavirus that began circulating worldwide in 2019 so we are calling it COVID-19. It has been estimated that four out of five patients with COVID-19 will recover at home without the need for medical attention. Symptoms of COVID-19 may include cough, fever, shortness of breath, loss of taste or smell and other flu-like symptoms including chills, sore muscles, sore throat, and headache. Severe illness is more common in older people and people with other health problems such as high blood pressure, obesity, and immune system problems. If the test is positive, you have COVID-19. You will be contacted by the ordering physicians office and instructed to remain on home isolation, in accordance with CDC guidelines. You may also be contacted by the [place] Department of Health to see if any of your close contacts may have been exposed to the virus and need to quarantine. If the test is negative, you likely do not have COVID-19 at this time, but you still may have a different illness that can spread to other people (like Influenza, or the Flu) and could still be at risk for getting COVID-19. We recommend that you stay away from other people to limit the spread of illness until your symptoms are improving and you are fever-free for 24 hours without the use of fever lowering medications such as acetaminophen or ibuprofen. No test is 100% accurate so if you are still concerned you may have COVID-19, talk to your doctor about the need to continue to stay away from others. Medicines Unless your provider told you not to use the following: Acetaminophen (Tylenol and others) is generally safe. Anti-inflammatory medications, such as Ibuprofen (Advil or Motrin) or Naproxen (Aleve) can also be used. Rkgl-qwn-lwlxvnp cough and cold medicines can be used according to the instructions on the package. Some eibx-ndi-bafnvsm medicines also contain acetaminophen. Make sure you are not taking more than your recommended dose. For those not hospitalized, there is no specific treatment available for this illness. Antibiotics do not treat Coronaviruses. Follow-Up Follow up with your doctor by scheduling a virtual visit or consider follow-up at one of our urgent care fever clinics. If you are having difficulty breathing, or are very weak and having difficulty standing, this is a medical emergency. Call 911 or have someone take you to the nearest emergency room immediately. If possible, wear a facemask. Additional guidance from the CDC for patients who tested POSITIVE for COVID-19 How to isolate: Isolate yourself in a specific room at home and limit your contact with others. Use a separate bathroom from other members of the household, when possible. Leave home only to get essential medical care. Do not go to work, school or public areas. Avoid using public transportation, ride-sharing, or taxis. Restrict contact with pets and other animals. If you must care for your pet or be around animals while you are sick, wash your hands before and after your interaction and wear a facemask. Make sure that shared spaces in the home have good airflow, such as by an air conditioner or an opened window, weather permitting. Personal Hygiene Procedures: Wear a face mask when in the same room as other people or pets. If a face mask interferes with your breathing, others should wear a mask when sharing space with you. Frequent hand-washing: wash your hands with soap and water for at least 20 seconds. If soap and water are not available, use alcohol-based hand market research manager. Avoid touching your eyes, nose, and mouth with unwashed hands. Household Hygiene Procedures: Avoid sharing personal household items such as dishes, glassware, cups, eating utensils, towels or bedding with other people or pets in your home. After use, these items should be washed with soap and hot water. Disinfect all high-touch surfaces every day with antibacterial cleaning solutions such as Lysol wipes, bleach, cleansers, etc. High-touch surfaces include tabletops, doorknobs, bathroom fixtures, toilets, phones, keyboards, tablets and bedside tables. Immediately clean any surfaces that may have blood, poop or body fluids on them, using antibacterial cleaning solutions such as Lysol wipes, bleach, cleansers, etc. If clothing or bedding come into contact with blood, poop or body fluids, they should be washed immediately. Follow the directions on the laundry detergent and clothing labels but hot water is recommended when possible. Stopping home isolation precautions: If possible, consult your doctor before stopping home isolation precautions. According to the CDC, you can discontinue home isolation precautions when you have met both of these criteria: Your fever and respiratory symptoms have been gone for 24 guerline (more content not included)... Normal [facility] - Chemistry and C hemistry - challengeon 06-07-2021 Albumin BCP dye [Mass/Vol] 4.3 g/dL 3.4 - 5.[address] Work Phone: [phone] ALT With P-5'-P [Catalytic activity/Vol] 26 U/L 10 - [address] Work Phone: [phone] Comment on above: Patients treated wit h Sulfasalazine may generate falsely decreased results for ALT. AST With P-5'-P [Catalytic activity/Vol] 20 U/L 9 - [address] Work Phone: [phone] CO2 [Moles/Vol] 26 mmol/L 21 - [address] Work Phone: [phone] Laboratory - Coagulationon 0 06-07-2021 INR Coag (PPP) [Relative time] 0.9 {INR} 0.9 - 1.[address] Work Phone: [phone] PT Coag (PPP) [Time] 11.0 s See Below [address] Work Phone: Comment on above: Reference Range: 10. 1 - 13.3 Magnesium, Serumon Magnesium [Mass/Vol] 2.06 mg/dL See Below [address] Work Phone: Comment on above: Reference Range: 1.6 0 - 2.40 Performed By: #### M G #### [place] [address] No Panel Informationon 06-07 30 pg/mL 0 - [address] Work Phone: Comment on above: . <100 pg/mL - Heart failure [id number] pg/mL - Intermediate probability of acute heart. failure exacerbation. Correlate with clinical. context and patient history. >=300 pg/mL - Heart Failure likely. Correlate with clinical. context and patient history.BNP testing is performed using different testing methodology at [facility] than at other [facility]. Direct result comparisons should only be made within the same method. >60 >[address] Work Phone: Comment on above: CALCULATIONS OF NIKOLE MATED GFR ARE PERFORMED USING THE MDRD STUDY EQUATION FOR THE IDMS-TRACEABLE CREATININE METHODS. CLIN CHEM 2007;53:766-72 PT/INRon 06-07-2021 PT Coag (PPP) [Time] 11.0 s Normal 10.1 - 13.3 [facility] Comment on above: Performed By: #### P TINR #### [place] [address] PT, INR 0.9 Normal 0.9 - 1.1 [facility] Comment on above: Performed By: #### P TINR #### [place] [id number] Provider Note - ED v3on 05-24 Provider Note - ED v3 Provider Note: Chart Review: ED NOTES ED NOTES: 50-year-old male with a chief complaint of some right upper chest discomfort. He primarily complains of a burning sensation in the center of his chest. He said he checked his blood pressure and his blood pressure was high. He is out of his clonidine which he takes on a daily basis. Patient states he is out of his clonidine he denies any radiation of discomfort to the neck arm shoulder or jaw. No fever chills or cough. No shortness of breath. No leg pain swelling or calf tenderness. Pain is somewhat constant he has had similar episodes and was recently seen at [facility] where his work-up was grossly negative. He states he rode his bike to the fire station to have his BP checked it was high so he had them bring him to the emergency room for further evaluation. He has past medical history of renal artery stenosis. He frequents multiple different emergency rooms. He denies to me that he is homeless he says he has a home in [place] and that he has been using his bike and biking on the bike trail. His only regular medications right now according to him are metoprolol extended release 25 mg once a day and clonidine 0.1 mg once a day. A complete review of systems is otherwise negative except as noted above Past medical history includes hypertension, abdominal aortic aneurysm and thoracic aneurysm, heart murmur, arrhythmia, renal artery stenosis, intestinal tumor, pulmonary embolism Past surgical history of no recent surgeries Social history no tobacco use, positive social alcohol use, no drug use He has not had Covid vaccine. States he had a real Covid infection in September. Current medications include metoprolol 25 mg once a day and clonidine 0.1 mg once a day HISTORY OF PRESENTING ILLNESS HOSEA is a 50 year old Male and was seen by me at 07-Jun-2021 09:03 for a chief complaint of chest pain (upper right side) . Triage Information: Most recent Vital Sign Value Date Temp (F): 98.2 06-07-2021 08:47 Temp (C): 36.7 06-07-2021 08:47 Heart Rate (beats/min): 81 06-07-2021 08:47 Respirations (breaths/min): 16 06-07-2021 08:47 SpO2 (%): 97 06-07-2021 08:47 BP Systolic (mm Hg): 134 06-07-2021 08:47 BP Diastolic (mm Hg): 100 06-07-2021 08:47 PAST MEDICAL HISTORY ALLERGIES/INTOLERANCES: Allergy Allergen: Erythromycin Base Type: Drug Reaction: Unknown Allergen: caffine Type: Food Reaction: Other Allergen: Cipro Type: Drug Reaction: Unknown Intolerance Allergen: polyethylene glycol 3350 Type: Drug Reaction: GI Upset HEALTH HISTORY: Family History Name:No family history of cancer Code:Z78.9 Name:No family history of coronary artery disease Code:Z78.9 Medical History Name:Chest pain Code:R07.9 Name:Renal artery stenosis Code:I70.1 Name:Pulmonary embolism Code:I26.99 Name:History of COVID-19 Code:Z86.16 Name:Ascending aortic aneurysm Code:I71.2 Name:Bipolar disorder Code:F31.9 Name:Palpitations Code:R00.2 Social History Name:Homeless Code:Z59.0 Name:Does not use illicit drugs Code:Z78.9 Name:Consumes alcohol occasionally Code:Z78.9 Name:Former smoker Code:Z87.891 OUTPATIENT MEDICATIONS: Home Medications Review Status for Reconciliation: N/A Med Status: Patient Currently Takes Medications Drug Name: losartan 50 mg oral tablet Instructions: 1 tab(s) orally once a day Drug Name: metoprolol succinate 25 mg oral tablet, extended release Instructions: 1 tab(s) orally once a day Drug Name: pantoprazole 40 mg oral delayed release tablet Instructions: 1 tab(s) orally once a day Drug Name: Lidocaine Viscous 2% mucous membrane solution Instructions: Apply topically to affected area 3 times a day (before meals) Drug Name: cloNIDine 0.1 mg oral tablet Instructions: 1 tab(s) orally once a day Drug Name: metoprolol tartrate 25 mg oral tablet Instructions: 1 tab(s) orally once a day SIGNIFICANT EVENTS: Past Medical History Description:Hypertension (HTN) Description:Abdominal Aortic Aneurysm (AAA) Description:Heart murmur Description:Arrythmia Additional Notes: inverted T waves Description:RENAL STENOSIS Description:intestinal tumor PHYSICAL EXAM CONSTITUTIONAL: Well appearing, well nourished, awake, alert, oriented to person, place, time/situation and in no apparent distress. HENMT: Mouth with normal mucosa. Throat has no vesicles, no oropharyngeal exudates and uvula is midline. Face with no lymph node enlargement. EYES: Clear bilaterally, pupils equal, round and reactive to light. CARDIOVASCULAR: Normal rate, regular rhythm. Heart sounds S1, S2. No murmurs, rubs or gallops. PMI non-displaced. RESPIRATORY: Breath sounds clear and equal bilaterally. No rales rhonchi or wheeze. No accessory muscles or respiration use. No conversational dyspnea. GASTROINTESTINAL: Abdomen (more content not included)... Normal [facility] Radiologyon 06-07-2021 XR Chest Single view Normal [address] - CPI [address] Work Phone: Risk Screen - Adult Emergenc yon 06-07-2021 Risk Screen - Adult Emergency Preferred Language: Preferred Language: Preferred Language for Discussing Health Care (patient/designee)Fran villalta Advanced Directives: Advance Directive/DNRno Family Violence Adult: Abuse Screen: Are you or have you been threatened or abused physically, emotionally, or sexually by anyoneno Learning Assessment (Patient): Learning Assessment (Patient): Patient is Able to be Assessed for Learningyes Factors Influencing Readiness to Learnpain Factors that Impact Ability to Learnnone Devices/Methods Used to Communicatenone Learning Preferencesverbal instruction Cultural Considerationsnone Developmental Considerationsnone Zoroastrian Considerationsnone Learning Assessment (Other Learner): Learning Assessment (Other Learner): Other learner availableno Pressure Injury/TB/Substance: Pressure Injury: Pressure Injury Present on Admissionno Do you have a coughno Smoking Statuslight user (uses <10 cig/day, OR <0.5 ppd, OR 1 can/pouch loose leaf tobacco per week, OR <0.5 vape pods per day) Tobacco Cessation Education (provide if tobacco use within the last 12 mos) patient declined Alcohol Usedenies Drug Usedenies Admission Risk Screen: Significant IndicatorsComplete CAGE: CAGE: Is this an injured patient at a Trauma Center ([facility]/[place] /[place]): no Electronic Signatures: Nelly Reagan (BROOKLYNN) (Signed 07-Jun-2021 09:12) Authored: Preferred Language, Advanced Directives, Family Violence Adult, Learning Assessment (Patient), Learning Assessment (Other Learner), Pressure Injury/TB/Substance, Pressure Injury, CAGE Last Updated: 07-Jun-2021 09:12 by Nelly Reagan (BROOKLYNN) Normal [facility] TROPONIN Ion 06-07-2021 Troponin I.cardiac [Mass/Vol] ng/mL Normal 0.00 - 0.03 [facility] Comment on above: Result Comment: LESS THAN 0.04 NG/ML: NEGATIVE REPEAT TESTING IN THREE TO SIX HOURS IF CLINICALLY INDICATED. 0.04 - 0.5 NG/ML: CONSISTENT WITH POSSIBLE CARDIAC DAMAGE AND POSSIBLE INCREASED CLINICAL RISK. SERIAL MEASUREMENTS MAY HELP ASSESS EXTENT OF MYOCARDIAL DAMAGE. >0.5 NG/ML: CONSISTENT WITH CARDIAC DAMAGE, INCREASED CLINICAL RISK AND MYOCARDIAL INFARCTION. SERIAL MEASUREMENTS MAY HELP ASSESS EXTENT OF MYOCARDIAL DAMAGE. . Note: Troponin I testing is performed using different testing methodology at [facility] than at other [facility]. Direct result comparisons should only be made within the same method. Performed By: #### C BCDF #### [facility] [address] [place] [address] Troponin I.cardiac [Mass/Vol] ng/mL Normal 0.00 - 0.03 [facility] Comment on above: Result Comment: LESS THAN 0.04 NG/ML: NEGATIVE REPEAT TESTING IN THREE TO SIX HOURS IF CLINICALLY INDICATED. 0.04 - 0.5 NG/ML: CONSISTENT WITH POSSIBLE CARDIAC DAMAGE AND POSSIBLE INCREASED CLINICAL RISK. SERIAL MEASUREMENTS MAY HELP ASSESS EXTENT OF MYOCARDIAL DAMAGE. >0.5 NG/ML: CONSISTENT WITH CARDIAC DAMAGE, INCREASED CLINICAL RISK AND MYOCARDIAL INFARCTION. SERIAL MEASUREMENTS MAY HELP ASSESS EXTENT OF MYOCARDIAL DAMAGE. . Note: Troponin I testing is performed using different testing methodology at [facility] than at other [facility]. Direct result comparisons should only be made within the same method. Performed By: #### T ROP2 #### [address] [address] Triage - EDon 06-07-2021 Triage - ED Chart Review: PRIMARY ASSESSMENT ABCD Normal Findings: airway open and patent, breathing normal, circulation normal and alert and oriented ARRIVAL INFORMATION Means of Arrival: stretcher Mode of Arrival: ambulance Agency: City Agency Name: [facility] Arrival From: scene of injury Accompanied By: self CHIEF COMPLAINT HOSEA ALVAREZ is a Male patient with a chief complaint of chest pain (upper right side). Triage Date/Time: 07-Jun-2021 08:47 WILMAN: 2 Pain Rating (0-10): 5 = Moderate Vital Signs: Temperature: 98.2F ( 36.7C) taken temporal Blood Pressure: 134/100 Mean: Heart Rate: 81 Respiratory Rate: 16 Pulse Oximetry: 97% Height: 5 feet 6.00 inches. 167.6 CM Weight: 185.1 pounds. Calculated 84.0 kg. Calculated BMI (kg/m2): 29.904 Calculated BSA (m2) 1.98 Lynda Coma Scale: Best Eye Response: (E4) spontaneous Best Motor Response: (M6) obeys commands Best Verbal Response: (V5) oriented [place] Score: 15 Cough lasting greater than 3 weeks: no Allergies: yes Patient has homicidal thoughts: no Symptoms Are Negative For: anxiety, chills, diaphoresis, dyspnea, headache, loss of consciousness, nausea, numbness, pain, tingling and weakness Chest Pain Location-Right: upper chest Risk Screens Suicide Risk Screen In the Past Month: Have you wished you were or wished you could go to sleep and not wake up no In the Past Month: Have you had any actual thoughts of killing yourself no In Your Lifetime: Have you ever done anything, started to do anything, or prepared to do anything to end your life no Molina Fall Scale Screening Has the patient fallen before (or is the patient in the ED as a result of a fall) has not had a fall Does the patient have an impaired gait does not have impaired gait Is the patient cognitively impaired not cognitively impaired Interventions: Jesse Fall Interventions: LOW INTERVENTIONS: *patient oriented to surroundings and call system, * patient/family falls education completed and documented, *patients fall status communicated during bedside handoff, *whiteboard updated, *mode of toileting discussed with patient, *bed in low position with brakes locked, *call light in reach, * non-skid footwear TRAVEL HISTORY Travel History Coronavirus Screening: no exposure or symptoms Travel Exposure History: NO travel to International locations in the past 30 days PAIN Pain Scale Used: SHANNON Pain Rating (0-10): 5 = Moderate Past Medical History: Past Medical History Reviewedyes Electronic Signatures: Kika Montesinos (EMT-P) (Signed 07-Jun-2021 08:53) Authored: Quick Triage, Risk Screens, Pain, Arrival, ABCD, Travel History, Chart Review, Scores, Past Medical History Last Updated: 07-Jun-2021 08:53 by Kika Montesinos (EMT-P) Normal [facility] Troponin I, Serumon 06-07-20 21 Troponin I.cardiac [Mass/Vol] ng/mL See Below Venkatesh ECHEVARRIA [address] Work Phone: Comment on above: Reference Range: 0.0 0 - 0.03LESS THAN 0.04 NG/ML: NEGATIVEREPEAT TESTING IN THREE TO SIX HOURSIF CLINICALLY INDICATED.0.04 - 0.5 NG/ML: CONSISTENT WITH POSSIBLECARDIAC DAMAGE AND POSSIBLE INCREASEDCLINICAL RISK.SERIAL MEASUREMENTS MAY HELP ASSESS EXTENT OFMYOCARDIAL DAMAGE.>0.5 NG/ML: CONSISTENT WITH CARDIAC DAMAGE,INCREASED CLINICAL RISK AND MYOCARDIALINFARCTION. SERIAL MEASUREMENTS MAY HELPASSESS EXTENT OF MYOCARDIAL DAMAGE..Note: Troponin I testing is performed using different testing methodology at [facility] than at other [facility]. Direct result comparisons should only be made within the same method. CTA Abdomen / Pelvis w/wo co ntraston 06-04-2021 CTA Abdomen / Pelvis w/wo contrast HISTORY: Worsening back pain rule out dissection. CT scan was performed by bolus contrast-enhanced scans of the chest, abdomen and pelvis. CT angiographic studies of the thoracic aorta, abdominal aorta, ileo femoral, and major visceral vessels was performed following the acquisition of high resolution helical CT data during the bolus contrast infusion. The data set was then post processed by myself on the [employer] workstation, with reconstructed 3D volume rendered and MPR CT angiographic renderings of the vessels. There is no significant renal artery stenosis on the right side. There is no significant stenosis of the celiac origin with patent KESHAWN. There are incidentally noted to be several right and left renal cysts, all simple appearing. IMPRESSION: 1. CTA CHEST --- no evidence of dissection. Mild dilatation ascending thoracic aorta (4.5 cm) 2. CTA ABDOMEN --- no evidence of aneurysm or dissection. Multiple renal cortical cysts one hyperdense on the right with tiny right renal calcifications which could represent nonobstructing calculi. Greater than 50% stenosis of the proximal left renal artery with weblike configuration. Less than 50% stenosis proximal SMA 3. CTA PELVIS --- no aneurysm or dissection or other abnormality seen Report Dictated on Authenticated by: Nubia Segal On: 06/04/2021 23:09 Read by: NUBIA SEGAL MD Date: 06/04/2021 23:09 [facility] Comment on above: Order Comment: CONTR AST PER RADIOLOGIST DISCRETION, r/o dissection CTA Chest w/wo contraston CTA Chest w/wo contrast HISTORY: Worsening back pain rule out dissection. CT scan was performed by bolus contrast-enhanced scans of the chest, abdomen and pelvis. CT angiographic studies of the thoracic aorta, abdominal aorta, ileo femoral, and major visceral vessels was performed following the acquisition of high resolution helical CT data during the bolus contrast infusion. The data set was then post processed by myself on the [employer] workstation, with reconstructed 3D volume rendered and MPR CT angiographic renderings of the vessels. There is no significant renal artery stenosis on the right side. There is no significant stenosis of the celiac origin with patent KESHAWN. There are incidentally noted to be several right and left renal cysts, all simple appearing. IMPRESSION: 1. CTA CHEST --- no evidence of dissection. Mild dilatation ascending thoracic aorta (4.5 cm) 2. CTA ABDOMEN --- no evidence of aneurysm or dissection. Multiple renal cortical cysts one hyperdense on the right with tiny right renal calcifications which could represent nonobstructing calculi. Greater than 50% stenosis of the proximal left renal artery with weblike configuration. Less than 50% stenosis proximal SMA 3. CTA PELVIS --- no aneurysm or dissection or other abnormality seen Report Dictated on Authenticated by: Nubia Segal On: 06/04/2021 23:09 Read by: NUBIA SEGAL MD Date: 06/04/2021 23:09 [facility] Comment on above: Order Comment: CONTR AST PER RADIOLOGIST DISCRETION, r/o dissection ED NOTEon 06-04-2021 ED NOTE HNO ID: [id number] Author: Yang Solomon RN Service: Emergency Medicine Author Type: Registered Nurse Type: ED Notes Filed: 06/04/2021 3:11 PM Note Text: Patient states pain in between shoulders starting about 1400 after eating sausage. Patient thinks its his aorta. Normal [facility] ED PROV NOTEon 06-04-2021 ED PROV NOTE HNO ID: [id number] Author: Marti Rebollar MD Service: Emergency Medicine Author Type: Physician Type: ED Provider Notes Filed: 06/04/2021 10:16 PM Note Text: ED Provider Note Patient Name: Hosea Alvarez SERVICE DATE: 06/04/21 History Patient presents with: Back Pain 50-year-old male, past medical history of thoracic aortic aneurysm, renal artery stenosis, HTN, presents to the emergency department via EMS for chief complaint of chest pain and back pain. Patient is well-known to the staff in this emergency department. He frequently receives emergency medicine care in multiple different ED's throughout [place], [place], and [place]. [facility] states that patient recently broke into their fire station earlier this week. He showed up again today to their fire station and therefore police were called on scene. Please cleared him and patient left the fire house. He then decided to walk to [place] and called [facility] from there. He reports right sided chest pain and upper back pain for several days. He states he ate sausage today that contained sodium nitrate and is worried that his renal arteries are stenosing further. He is requesting a CT scan of his chest/abd. He denies paresthesias or focal weakness. When questioned about his multiple ED visits/health care, patient states he currently lives in [place], [place] however is currently in the area riding his bike on the [employer]. He states he also lives in [place] and sees a primary care doctor there. Of note, patient was seen in this ED on 06/02/21 for similar complaints and his work up was unremarkable. PAST MEDICAL HISTORY Diagnosis Date - Hemorrhoids - Hypertension - Hypoglycemia History reviewed. No pertinent surgical history. No family history on file. Social History Tobacco Use - Smoking status: Former Smoker Types: Cigarettes - Smokeless tobacco: Never Used Vaping Use - Vaping Use: Never used Substance and Sexual Activity - Alcohol use: Yes Alcohol/week: 7.0 standard drinks Types: 7 Cans of beer per week Comment: pt sts a beer a day. daily - Drug use: No - Sexual activity: Not on file ALLERGIES Allergen Reactions - Caffeine Rash Other reaction(s): Shakiness - [place] GI Upset, Rash, Vomiting Statused by Person: ?Imelda Meza.(Altaf Meza2) on Statused by Person: ?SRAVANTHI MONGE([facility]) on Statused by Person: ?Imelda Meza.(Altaf Callejaser2) on Statused by Person: ?SRAVANTHI MONGE([facility]) on - Amoxicillin GI Upset - Chocolate Flavor GI Upset - Ciprofloxacin Other: See Comments - Diazepam Unknown - Fentanyl Mental Status Change - Lorazepam GI Upset Other reaction(s): Abdominal Pain - Seasonal Allergies GI Upset Abdominal pain Abdominal pain - Serotonin Hcl Mental Status Change 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 Respiratory: Negative for cough and shortness of breath. Cardiovascular: Positive for chest pain. Negative for palpitations. Gastrointestinal: Negative for abdominal pain, diarrhea, nausea and vomiting. Genitourinary: Negative for dysuria. Musculoskeletal: Positive for back pain. Skin: Negative for rash. Neurological: Negative for dizziness, seizures, syncope, weakness, numbness and headaches. All other systems reviewed and are negative. Physical Exam BP 134/90 Pulse 84 Temp 97.9 Resp 18 Ht 5' 6 (1.68m) Wt 185 lb (83.9kg) SpO2 99% BMI 29.87 kg/(m2). Physical Exam Vitals reviewed. Constitutional: General: He is not in acute distress. Appearance: Normal appearance. He is well-developed. He is not ill-appearing, toxic-appearing or diaphoretic. HENT: Head: Normocephalic and atraumatic. Nose: Nose normal. Mouth/Throat: Mouth: Mucous membranes are moist. Eyes: Extraocular Movements: Extraocular movements intact. Conjunctiva/sclera: Conjunctivae normal. Pupils: Pupils are equal, round, and reactive to light. Cardiovascular: Rate and Rhythm: Normal rate and regular rhythm. Pulses: Normal pulses. Radial pulses are 2+ on the right side and 2+ on the left side. Dorsalis pedis pulses are 2+ on the right side and 2+ on the left side. Posterior tibial pulses are 2+ on the right side and 2+ on the left side. Heart sounds: Normal heart sounds. No murmur heard. No gallop. Pulmonary: Effort: Pulmonary effort is normal. No respiratory distress. Breath sounds: Normal breath sounds. Chest: Chest wall: Tenderness (reproducible right upper chest wall. no ecchymosis or crepitus) present. Abdominal: General: Bowel sounds are normal. Palpations: Abdomen is soft. Tenderness: (more content not included)... Normal [facility] COMPREHENSIVE PANELon 2020 Albumin [Mass/Vol] 4.4 g/dL Normal 3.4 - 5.0 [facility] Comment on above: Performed By: #### C MP ####[facility] [id number] [place] [address] ALP [Catalytic activity/Vol] 60 U/L Normal 33 - 120 [facility] Comment on above: Performed By: #### C MP ####[facility] [id number] [place] [address] ALT [Catalytic activity/Vol] 24 U/L Normal 10 - 52 [facility] Comment on above: Result Comment: Yanni ents treated with Sulfasalazine may generate falsely decreased results for ALT. Performed By: #### C MP ####[facility] [id number] [place] [address] Anion gap [Moles/Vol] 12 mmol/L Normal 10 - 20 [facility] Comment on above: Performed By: #### C MP ####[facility] [id number] [place] [address] AST [Catalytic activity/Vol] 20 U/L Normal 9 - 39 [facility] Comment on above: Performed By: #### C MP ####[facility] [id number] [place] [address] Bilirubin [Mass/Vol] 0.5 mg/dL Normal 0.0 - 1.2 [facility] Comment on above: Performed By: #### C MP ####[facility] [id number] [place] [address] Calcium [Mass/Vol] 9.4 mg/dL Normal 8.6 - 10.3 [facility] Comment on above: Performed By: #### C MP ####[facility] [id number] [place] [address] Chloride [Moles/Vol] 101 mmol/L Normal 98 - 107 [facility] Comment on above: Performed By: #### C MP ####[id number] [place] [address] Creatinine [Mass/Vol] 0.97 mg/dL Normal 0.50 - 1.30 [facility] Comment on above: Performed By: #### C MP ####[facility] [id number] [place] [address] GFR- AM. >60 Normal >60 [facility] Comment on above: Result Comment: CALC ULATIONS OF ESTIMATED GFR ARE PERFORMED USING THE MDRD STUDY EQUATION FOR THE IDMS-TRACEABLE CREATININE METHODS. CLIN CHEM 2007;53:766-72 Performed By: #### C MP ####[facility] [id number] [place] [address] GFR-NON AM. >60 Normal >60 [facility] Comment on above: Performed By: #### C MP ####[facility] [id number] [place] [address] Glucose [Mass/Vol] 93 mg/dL Normal 74 - 99 [facility] Comment on above: Performed By: #### C MP ####[facility] [id number] [place] [address] HCO3 (Bld) [Moles/Vol] 27 mmol/L Normal 21 - 32 [facility] Comment on above: Performed By: #### C MP ####[facility] [id number] [place] [address] Potassium [Moles/Vol] 4.4 mmol/L Normal 3.5 - 5.3 [facility] Comment on above: Performed By: #### C MP ####[facility] [id number] [place] [address] Protein [Mass/Vol] 7.1 g/dL Normal 6.4 - 8.2 [facility] Comment on above: Performed By: #### C MP ####[facility] [id number] [place] [address] Sodium [Moles/Vol] 136 mmol/L Normal 136 - 145 [facility] Comment on above: Performed By: #### C MP ####[facility] [id number] [place] [address] Urea nitrogen [Mass/Vol] 12 mg/dL Normal 6 - 23 [facility] Comment on above: Performed By: #### C MP ####[facility] [id number] [place] [address] HIV 1/2 ANTIGEN/ANTIBODY SCR EEN WITH REFLEX TO CONFIRMATIONon 06-03-2021 HIV 1/2 AG/AB SCREEN Non-Reactive Normal NONREACTIVE U [facility] Comment on above: Result Comment: HIV Ag/Ab screen is performed using the Siemens [employer] HIV Ag/Ab Combo assay which detects the presence of HIV p24 antigen as well as antibodies to HIV-1 (Group M and O) and HIV-2. . No laboratory evidence of HIV infection. If acute HIV infection is suspected, consider testing for HIV RNA by PCR (viral load). Performed By: #### H IV ####[id number] [place] [address] MAGNESIUMon 06-03-2021 Magnesium [Mass/Vol] 2.00 mg/dL Normal 1.60 - 2.40 [facility] Comment on above: Performed By: #### M G ####[facility] [id number] [place] [address] PHOSPHORUSon 06-03-2021 Phosphate [Mass/Vol] 4.6 mg/dL Normal 2.5 - 4.9 [facility] Comment on above: Result Comment: The performance characteristics of phosphorus testing in heparinized plasma have been validated by the individual laboratory site where testing is performed. Testing on heparinized plasma is not approved by the FDA; however, such approval is not necessary. Performed By: #### P HOS ####[facility] [id number] [place] [address] Provider Note - ED v3on 05-24 Provider Note - ED v3 Provider Note: Chart Review: ED NOTES ED NOTES: Chief Complaint: Multiple medical complaints HPI: Patient is a 50 year old male, history of bipolar disorder, known thoracic aortic aneurysm, renal artery stenosis in room 15 presenting to the ED with multiple medical complaints and concern about outpatient follow up. Pt's only acute complaint is mild right upper back pain that is constant and worse with movement. He states that prior to arrival, he rode his bike to a fire station to have his BP checked and it was high 200/100 and then on repeat was normal, but with his history he decided to come to the ED to be seen. He also states that he has a significant GI history and has been struggling to set up an outpatient appointment. He is able to eat and drink appropriately. 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 Pt states that he has been seen an evaluated at multiple different ED's for similar problems and feels that no one is helping him. He is a very poor historian and history is somewhat limited. ROS: A complete 12-point review of systems was performed and is otherwise negative, except as noted in HPI. PMHx/PSHx: Reviewed, documented below per EMR. FamHx: Reviewed, noncontributory to patients presenting complaint. SocHx: Denies etoh, tobacco, illicit drugs. Allergies: Reviewed, documented below per EMR. Medications: Reviewed, documented below per EMR. Physical Exam: VS: As documented in the triage note and EMR flowsheet from this visit were reviewed. General: Well appearing. No acute distress. Unkempt with dirty clothing. Eyes: Pupils round and reactive. Extraocular movements grossly intact. No scleral icterus. HENT: Atraumatic. Normocephalic. Moist mucous membranes. Neck: The neck is soft and supple without meningismus. CV: Regular rate. No murmurs, rubs, gallops appreciated. Resp: Clear to auscultation bilaterally. Non-labored. GI: Soft, nontender to palpation. Nondistended. No rebound, guarding. No masses. MSK: no midline bony tenderness to the C/T/L spine, no palpable paraspinal tenderness. Skin: Warm, dry, intact. No systemic rashes or lesions appreciated. Neuro: Alert. No focal neuro deficits observed. Speech fluent. Answers questions appropriately. Psych: Appropriate. [place]. ED Course/MDM Results: Labs/Imaging: CBC, CMP are unremarkable and stable from prior labs on 05/31 and 05/24 CT angio chest/abndomen from 05/08 was reviewed and is unchanged from his prior CT imaging. Medical Decision Making This is a 50 year old male, history of renal artery stenosis, thoracic aortic aneurysm and bipolar disorder, presenting to the ED for multiple chronic medical complaints and concern about his blood pressure. Pt states that he was rode his bike to a fire department to have his BP check and is was initially high and then normalized, but he decided to come to the ED for evaluation. He also complains of right shoulder pain, which is new in the last few days, no injury or trauma. He has multiple other chronic medical complaints and is struggling to make out patient appointments. He has been seem multiple times over the last few weeks at several different ED's with similar complaints. On physical exam, the patient is in no acute distress. His is unkept and wearing dirty clothing, with a large amount of his belongings in the room with him. Heart is regular rate and rhythm and lungs are clear to auscultation. There is no midline bony tenderness or paraspinal tenderness of the back. Vitals are stable, no concern for elevated BP. I did review the patient's labwork and imaging from his previous visits and there was an unchanged CT angio of the chest/abdomen/pelvis on 05/08 and as the patient does not have any new symptoms, I do not feel that repeat imaging is indicated at this time. Labwork from today and his prior few visited are all unremarkable. The patient does have some rambling speech in telling his long past medical history, however I am not concerned for decompensated psychiatric disease and the patient denies any SI or HI. I feel that the patient is HDS and safe for discharge home, and outpatient follow up. He does have an appointment for an EGD coming up and was given information for a electrical software engineer. He does have a phone and is able to call to make appointments as an outpatient. He was given a 3 day prescription for clonidine and metoprolol as he reports running out of these medications. He remained HDS during his stay in the ED and was stable at time of discharge home Final Impression 1. Multiple medical complaints Disposition/Plan: discharge home Condition at disposition: Stable. Patient case was discussed with the attending ED provider, who also saw and evaluated the patient. Patient and/or patient hvac sales representative counseled regarding contents of Hospital Course / Medical Decisio (more content not included)... Normal [facility] ALLIED HEALTHon 06-02-2021 ALLIED HEALTH HNO ID: [id number] Author: Iain Brice Service: Radiology Author Type: Leather Belt Maker Type: Allied Health Filed: 06/02/2021 2:59 PM Note Text: Radiology Service Progress Note PATIENT NAME: Hosea Alvarez DATE OF SERVICE: June 02, 2021 TIME: 2:58 PM PATIENT IDENTITY VERIFICATION COMPLETED USING TWO (2) IDENTIFIERS: Name and Date of confirmed by patient verbally and Name and Date of confirmed by identification band. FALL SCREENING: Has the patient had 2 falls in the last year or 1 fall with injury or currently using an Ambulatory Assistive Device (Walker, Cane, Wheelchair, Crutches, etc.)? No PATIENT GENDER DATA: Male PATIENT RELEVANT IMPLANT DATA REVIEWED: Not Applicable RADIOLOGY DEPARTMENT: General X-ray: Exam(s) Completed: Chest X-Ray PERIPHERAL IV DATA: Not applicable SIGNED BY: Iain Brice June 02, 2021 2:58 PM Normal [facility] ALLIED HEALTH HNO ID: [id number] Author: Iain Brice Service: Radiology Author Type: Leather Belt Maker Type: Allied Health Filed: 06/02/2021 2:48 PM Note Text: Radiology Service Progress Note PATIENT NAME: Hosea Alvarez DATE OF SERVICE: June 02, 2021 TIME: 2:47 PM PATIENT IDENTITY VERIFICATION COMPLETED USING TWO (2) IDENTIFIERS: Name and Date of confirmed by patient verbally and Name and Date of confirmed by identification band. FALL SCREENING: Has the patient had 2 falls in the last year or 1 fall with injury or currently using an Ambulatory Assistive Device (Walker, Cane, Wheelchair, Crutches, etc.)? No PATIENT GENDER DATA: Male PATIENT RELEVANT IMPLANT DATA REVIEWED: Not Applicable RADIOLOGY DEPARTMENT: General X-ray: Exam(s) Completed: Chest X-Ray PERIPHERAL IV DATA: Not applicable SIGNED BY: Iain Brice June 02, 2021 2:47 PM Normal [facility] Basic metabolic 2000 panelon 06-02-2021 Anion gap [Moles/Vol] 11 mmol/L Normal 8-16 [facility] Comment on above: Order Comment: Speci men Type: BLOOD SPECIMEN Performed By: #### 2 4321-2 ####[facility] LABCLIA [id number] [place] [address] [place] Calcium [Mass/Vol] 8.6 mg/dL Normal 8.5-10.1 [facility] Comment on above: Order Comment: Speci men Type: BLOOD SPECIMEN Performed By: #### 2 4321-2 ####[facility] LABCLIA [id number] [place] [address] [place] [facility] Chloride [Moles/Vol] 102 mmol/L Normal 98-107 [facility] Comment on above: Order Comment: Speci men Type: BLOOD SPECIMEN Performed By: #### 2 4321-2 ####[facility] LABCLIA [id number] [address] [place] CO2 [Moles/Vol] 26 mmol/L Normal 21-32 [facility] Comment on above: Order Comment: Speci men Type: BLOOD SPECIMEN Performed By: #### 2 4321-2 ####[facility] LABCLIA [id number] [address] [place] Creatinine [Mass/Vol] 0.82 mg/dL Normal 0.67-1.17 [facility] Comment on above: Order Comment: Speci men Type: BLOOD SPECIMEN Performed By: #### 2 4321-2 ####[facility] LABCLIA [id number] [address] [place] GFR/1.73 sq M.predicted among blacks MDRD (S/P/Bld) [Vol rate/Area] mL/min/{1.73_m2} [facility] Comment on above: Order Comment: Speci men Type: BLOOD SPECIMEN Performed By: #### 2 4321-2 ####[facility] LABCLIA [id number] [place] [address] [place] GFR/1.73 sq M.predicted among non-blacks MDRD (S/P/Bld) [Vol rate/Area] mL/min/{1.73_m2} [facility] Comment on above: Order Comment: Speci men Type: BLOOD SPECIMEN Result Comment: eGFR (Estimated GFR) Units of measure: mL/min/1.73 meters squared eGFR is derived from the reexpressed MDRD Study equation using the following parameters: serum creatinine, age, gender and race. The creatinine assay has been calibrated to be traceable to IDMS. An eGFR <60 mL/min/1.73m2 for >3 months is consistent with chronic kidney disease. Refer to KDOQI guidelines for clinical interpretation. In patients with unstable renal function, e.g. those with acute kidney injury, the eGFR may not accurately reflect actual GFR. Performed By: #### 2 4321-2 ####[facility] LABIA [id number] [place] [address] [place] Glucose [Mass/Vol] 81 mg/dL Normal 70-99 [facility] Comment on above: Order Comment: Speci men Type: BLOOD SPECIMEN Result Comment: The [place] Diabetes Association (ADA) provides guidance for cutoff values for fasting glucose and random glucose. The ADA defines fasting as no caloric intake for at least 8 hours. Fasting plasma glucose results between 100 to 125 mg/dL indicate increased risk for diabetes (prediabetes). Fasting plasma glucose results greater than or equal to 126 mg/dL meet the criteria for diagnosis of diabetes. In the absence of unequivocal hyperglycemia, results should be confirmed by repeat testing. In a patient with classic symptoms of hyperglycemia or hyperglycemic crisis, random plasma glucose results greater than or equal to 200 mg/dL meet the criteria for diagnosis of diabetes. Reference: Standards of Medical Care in Diabetes 2016, [place] Diabetes Association. Diabetes Care. 2016.39(Suppl 1). Performed By: #### 2 4321-2 ####[facility] LABIA [id number] [address] [place] Potassium [Moles/Vol] 3.7 mmol/L Normal 3.5-5.1 [facility] Comment on above: Order Comment: Speci men Type: BLOOD SPECIMEN Performed By: #### 2 4321-2 ####[facility] LABIA [id number] [place] [address] [place] Sodium [Moles/Vol] 139 mmol/L Normal 136-145 [facility] Comment on above: Order Comment: Speci men Type: BLOOD SPECIMEN Performed By: #### 2 4321-2 ####[facility] LABCLIA [id number] [place] [address] [facility] Urea nitrogen [Mass/Vol] 10 mg/dL Normal 7-18 [facility] Comment on above: Order Comment: Speci men Type: BLOOD SPECIMEN Performed By: #### 2 4321-2 ####[facility] LABCLIA [id number] [place] [address] [facility] CBC AND DIFFERENTIALon 06-02 % AUTOMATED IMMATURE GRAN 0.6 % Normal 0.0 - 0.9 [facility] Comment on above: Result Comment: Kath ture Granulocyte Count (IG) includes promyelocytes, myelocytes and metamyelocytes but does not include bands. Percent differential counts (%) should be interpreted in the context of the absolute cell counts (cells/L). Performed By: #### C BCDF ####[facility] [id number] [place] [address] Basophils (Bld) [#/Vol] 0.03 10*3/uL Normal 0.00 - 0.10 [facility] Comment on above: Performed By: #### C BCDF ####[facility] [id number] [place] [address] Basophils/100 WBC (Bld) 0.8 % Normal 0.0 - 2.0 [facility] Comment on above: Performed By: #### C BCDF ####[facility] [id number] [place] [address] Eosinophils (Bld) [#/Vol] 0.08 10*3/uL Normal 0.00 - 0.70 [facility] Comment on above: Performed By: #### C BCDF ####[facility] [id number] [place] [address] Eosinophils/100 WBC (Bld) 2.2 % Normal 0.0 - 6.0 [facility] Comment on above: Performed By: #### C BCDF ####[facility] [id number] [place] [address] Erythrocyte distribution width (RBC) [Ratio] 13.0 % Normal 11.5 - 14.5 [facility] Comment on above: Performed By: #### C BCDF ####[facility] [id number] [place] [address] Hematocrit (Bld) [Volume fraction] 40.8 % Low 41.0 - 52.0 [facility] Comment on above: Performed By: #### C BCDF ####[facility] [id number] [place] [address] Hemoglobin (Bld) [Mass/Vol] 13.1 g/dL Low 13.5 - 17.5 [facility] Comment on above: Performed By: #### C BCDF ####[facility] [id number] [place] [address] Lymphocytes (Bld) [#/Vol] 0.97 10*3/uL Low 1.20 - 4.80 [facility] Comment on above: Performed By: #### C BCDF ####[facility] [place] [address] Lymphocytes/100 WBC (Bld) 26.8 % Normal 13.0 - 44.0 [facility] Comment on above: Performed By: #### C BCDF ####[facility] [id number] [place] [id number] MCHC (RBC) [Mass/Vol] 32.1 g/dL Normal 32.0 - 36.0 [facility] Comment on above: Performed By: #### C BCDF ####[facility] [id number] [place] [address] MCV (RBC) [Entitic vol] 85 fL Normal 80 - 100 [facility] Comment on above: Performed By: #### C BCDF ####[facility] [id number] [place] [address] Monocytes (Bld) [#/Vol] 0.36 10*3/uL Normal 0.10 - 1.00 [facility] Comment on above: Performed By: #### C BCDF ####[facility] [id number] [place] [address] Monocytes/100 WBC (Bld) 9.9 % Normal 2.0 - 10.0 [facility] Comment on above: Performed By: #### C BCDF ####[facility] [id number] [place] [address] Neutrophils (Bld) [#/Vol] 2.16 10*3/uL Normal 1.20 - 7.70 [facility] Comment on above: Performed By: #### C BCDF ####[facility] [id number] [place] [address] Neutrophils/100 WBC (Bld) 59.7 % Normal 40.0 - 80.0 [facility] Comment on above: Performed By: #### C BCDF ####[facility] [id number] [place] [address] Platelets (Bld) [#/Vol] 152 10*3/uL Normal 150 - 450 [facility] Comment on above: Performed By: #### C BCDF ####[facility] [id number] [place] [address] RBC 4.78 x10E12/L Normal 4.50 - 5.90 [facility] Comment on above: Performed By: #### C BCDF ####[facility] [id number] [place] [address] WBC (Bld) [#/Vol] 3.6 10*3/uL Low 4.4 - 11.3 [facility] Comment on above: Performed By: #### C BCDF ####[facility] [id number] [place] [address] CBC W Auto Differential pane l (Bld)on 06-02-2021 Basophils (Bld) [#/Vol] 10*3/uL Normal <0.11 [facility] Comment on above: Order Comment: Speci men Type: BLOOD SPECIMEN Performed By: #### 5 7021-8 #### [facility] CLIA [id number] [address] [place] [address] [facility] Basophils/100 WBC (Bld) 0.4 % Normal [facility] Comment on above: Order Comment: Speci men Type: BLOOD SPECIMEN Performed By: #### 5 7021-8 #### [facility] CLIA [id number] [address] [place] [address] Differential cell count method Nom (Bld) Auto Normal [facility] Comment on above: Order Comment: Speci men Type: BLOOD SPECIMEN Performed By: #### 5 7021-8 #### [facility] CLIA [id number] [address] [place] [address] [place] Eosinophils (Bld) [#/Vol] 0.09 10*3/uL Normal <0.46 [facility] Comment on above: Order Comment: Speci men Type: BLOOD SPECIMEN Performed By: #### 5 7021-8 #### [facility] CLIA [id number] [address] [place] [address] Eosinophils/100 WBC (Bld) 3.2 % Normal [facility] Comment on above: Order Comment: Speci men Type: BLOOD SPECIMEN Performed By: #### 5 7021-8 #### [facility] CLIA [id number] [address] [place] [address] Erythrocyte distribution width (RBC) [Ratio] 12.6 % Normal 11.5-15.0 [facility] Comment on above: Order Comment: Speci men Type: BLOOD SPECIMEN Performed By: #### 5 7021-8 #### [facility] CLIA [id number] [address] [place] [address] [place] Hematocrit (Bld) [Volume fraction] 34.0 % Low 39.0-51.0 [facility] Comment on above: Order Comment: Speci men Type: BLOOD SPECIMEN Performed By: #### 5 7021-8 #### [facility] CLIA [id number] [address] [place], [place] [id number] [facility] Hemoglobin (Bld) [Mass/Vol] 11.3 g/dL Low 13.0-17.0 [facility] Comment on above: Order Comment: Speci men Type: BLOOD SPECIMEN Performed By: #### 5 7021-8 #### [facility] CLIA [id number] [address] [place] [address] Lymphocytes (Bld) [#/Vol] 0.83 10*3/uL Low 1.00-4.00 [facility] Comment on above: Order Comment: Speci men Type: BLOOD SPECIMEN Performed By: #### 5 7021-8 #### [facility] CLIA [id number] [address] [place] [address] Lymphocytes/100 WBC (Bld) 29.1 % Normal [facility] Comment on above: Order Comment: Speci men Type: BLOOD SPECIMEN Performed By: #### 5 7021-8 #### [facility] CLIA [id number] [address] [place] [address] MCH (RBC) [Entitic mass] 28.6 pg Normal 26.0-34.0 [facility] Comment on above: Order Comment: Speci men Type: BLOOD SPECIMEN Performed By: #### 5 7021-8 #### [facility] CLIA [id number] [address] [place] [address] MCHC (RBC) [Mass/Vol] 33.2 g/dL Normal 30.5-36.0 [facility] Comment on above: Order Comment: Speci men Type: BLOOD SPECIMEN Performed By: #### 5 7021-8 #### [facility] CLIA [id number] [address] [place] [address] MCV (RBC) [Entitic vol] 86.1 fL Normal 80.0-100.0 [facility] Comment on above: Order Comment: Speci men Type: BLOOD SPECIMEN Performed By: #### 5 7021-8 #### [facility] CLIA [id number] [address] [place] [address] Monocytes (Bld) [#/Vol] 0.27 10*3/uL Normal <0.87 [facility] Comment on above: Order Comment: Speci men Type: BLOOD SPECIMEN Performed By: #### 5 7021-8 #### [facility] CLIA [id number] [facility] [place] [address] [place] Monocytes/100 WBC (Bld) 9.5 % Normal [facility] Comment on above: Order Comment: Speci men Type: BLOOD SPECIMEN Performed By: #### 5 7021-8 #### [facility] CLIA [id number] [address] [place] [address] [place] Neutrophils (Bld) [#/Vol] 1.65 10*3/uL Normal 1.45-7.50 [facility] Comment on above: Order Comment: Speci men Type: BLOOD SPECIMEN Performed By: #### 5 7021-8 #### [facility] CLIA [id number] [address] [place] [address] [facility] Neutrophils/100 WBC (Bld) 57.8 % Normal [facility] Comment on above: Order Comment: Speci men Type: BLOOD SPECIMEN Performed By: #### 5 7021-8 #### [facility] CLIA [id number] [address] [place] [address] [place] Platelet mean volume (Bld) [Entitic vol] 11.0 fL Normal 9.0-12.7 [facility] Comment on above: Order Comment: Speci men Type: BLOOD SPECIMEN Performed By: #### 5 7021-8 #### [facility] CLIA [id number] [address] [place] [address] [facility] [place] Platelets (Bld) [#/Vol] 124 10*3/uL Low 150-400 [facility] Comment on above: Order Comment: Speci men Type: BLOOD SPECIMEN Performed By: #### 5 7021-8 #### [facility] CLIA [id number] [address] [place] [address] [place] RBC (Bld) [#/Vol] 3.95 10*6/uL Low 4.20-6.00 [facility] Comment on above: Order Comment: Speci men Type: BLOOD SPECIMEN Performed By: #### 5 7021-8 #### [facility] CLIA [id number] [address] [place], [place] [id number] [facility] WBC (Bld) [#/Vol] 2.85 10*3/uL Low 3.70-11.00 [facility] Comment on above: Order Comment: Speci men Type: BLOOD SPECIMEN Performed By: #### 5 7021-8 #### [facility] CLIA [id number] [address] [place], [place] [id number] [facility] CHEST 1 VIEWon 06-02-2021 CHEST 1 VIEW Patient Name: HOSEA ALVAREZ STUDY: CHEST 1 VIEW; 06/02/2021 9:05 pm INDICATION: right shoulder pain. COMPARISON: Chest x-ray 05/31/2021 ACCESSION NUMBER(S): [id number] ORDERING CLINICIAN: MAHSA FORD FINDINGS: CARDIOMEDIASTINAL SILHOUETTE: Cardiomediastinal silhouette is mildly enlarged but stable. Mild unfolding of the descending thoracic aorta. LUNGS: No consolidation, pleural effusion or pneumothorax. ABDOMEN: No remarkable upper abdominal findings. BONES: Multilevel degenerative changes of the spine. IMPRESSION: No acute cardiopulmonary process. Electronically signed by: BHARGAV MOJICA MD Normal [facility] Complete Blood Count + Diffe neiltialon 06-02-2021 Basophils/100 WBC (Bld) 0.8 % 0.0 - 2.[address] [facility] [address] Work Phone: Erythrocyte distribution width (RBC) [Ratio] 13.0 % See Below [facility] [facility] [address] Work Phone: Comment on above: Reference Range: 11. 5 - 14.5 Hematocrit (Bld) [Volume fraction] 40.8 % below low threshold See Below [address] [facility] [address] Work Phone: Comment on above: Reference Range: 41. 0 - 52.0 Hemoglobin (Bld) [Mass/Vol] 13.1 g/dL below low threshold See Below [address] [facility] [address] Work Phone: Comment on above: Reference Range: 13. 5 - 17.5 Lymphocytes/100 WBC (Bld) 26.8 % See Below [address] [facility] [address] Work Phone: [phone] Comment on above: Reference Range: 13. 0 - 44.0 MCHC (RBC) [Mass/Vol] 32.1 g/dL See Below [address] [facility] [address] Work Phone: [phone] Comment on above: Reference Range: 32. 0 - 36.0 MCV (RBC) [Entitic vol] 85 fL 80 - [address] [facility] [address] Work Phone: [phone] Monocytes/100 WBC (Bld) 9.9 % 2.0 - 10.[address] [facility] [address] Work Phone: [phone] Neutrophils/100 WBC (Bld) 59.7 % See Below [facility] [facility] [address] Work Phone: [phone] Comment on above: Reference Range: 40. 0 - 80.0 Platelets (Bld) [#/Vol] 152 10*3/uL 150 - [address] [facility] [address] Work Phone: [phone] RBC (Bld) [#/Vol] 4.78 {x10E12/L} See Below [facility] [facility] [address] Work Phone: [phone] Comment on above: Reference Range: 4.5 0 - 5.90 WBC (Bld) [#/Vol] 3.6 10*3/uL below low threshold 4.4 - 11.[address] [facility] [address] Work Phone: [phone] Complete Blood Count + Differential 0.03 {x10E9/L} See Below [facility] [facility] [address] Work Phone: [phone] Comment on above: Reference Range: 0.0 0 - 0.10 Complete Blood Count + Differential 0.08 {x10E9/L} See Below [address] [facility] [address] Work Phone: [phone] Comment on above: Reference Range: 0.0 0 - 0.70 Complete Blood Count + Differential 0.36 {x10E9/L} See Below [address] [facility] [address] Work Phone: [phone] Comment on above: Reference Range: 0.1 0 - 1.00 Complete Blood Count + Differential 0.97 {x10E9/L} below low threshold See Below [facility] [facility] [address] Work Phone: Comment on above: Reference Range: 1.2 0 - 4.80 Complete Blood Count + Differential 2.16 {x10E9/L} See Below [address] [facility] [address] Work Phone: Comment on above: Reference Range: 1.2 0 - 7.70 Complete Blood Count + Differential 2.2 % 0.0 - 6.[address] [facility] [address] Work Phone: Complete Blood Count + Differential 0.6 % 0.0 - 0.[address] [facility] [address] Work Phone: Comment on above: Immature Granulocyte Count (IG) includes promyelocytes, myelocytes and metamyelocytes but does not include bands. Percent differential counts (%) should be interpreted in the context of the absolute cell counts (cells/L). ED NOTEon 06-02-2021 ED NOTE HNO ID: [id number] Author: Melania Juares RN Service: Emergency Medicine Author Type: Registered Nurse Type: ED Notes Filed: 06/02/2021 4:51 PM Note Text: Oncoming EDP Dr Santoro has come into the room and explained in great detail that his chronic BP med that he failed to get filled back in February will NOT be filled by her. That this issue is for a PCP. Pt argumentative with every excuse possible. Pt informed with security at side that he is to leave the room. The 866# is written down for pt for his [place] medicaid insurance card and that pt states to the RN a ride will be provided for him. Policy # also written down on Same piece of paper. Security is watching pt from their office and pt is calling from his cell phone. Pt states repeatedly he cannot believe there is no clinical social work therapist to handle this for him here at his location. Informed pt that there has never been clinical social work therapist at [facility]. And with the information provided to him he should likely and easily be able to get a ride as he stated was the service on his insurance. [facility] ED NOTE HNO ID: [id number] Author: Melania D Mor, RN Service: Emergency Medicine Author Type: Registered Nurse Type: ED Notes Filed: 06/02/2021 4:12 PM Note Text: EDP attending Dr Madden has in great detail spoken to pt and reassured him that all labs are normal and ok for dc home. No further testing would be performed and no admission would be done. [facility] ED NOTE HNO ID: [id number] Author: Melania Juares RN Service: Emergency Medicine Author Type: Registered Nurse Type: ED Notes Filed: 06/02/2021 4:09 PM Note Text: After automatic BP reading was 190/123, pt took it upon himself to take 2 clonidine 0.1mg po and NTG from his own backpack without telling staff. Now states feels shaky. A manual BP was taken bilaterally while he sat in the bed and shows left arm 140/100, right arm 142/100. EDP made aware [facility] ED NOTE HNO ID: [id number] Author: Melania Juares RN Service: Emergency Medicine Author Type: Registered Nurse Type: ED Notes Filed: 06/02/2021 4:08 PM Note Text: After [facility] ED NOTE HNO ID: [id number] Author: Melania Juares RN Service: Emergency Medicine Author Type: Registered Nurse Type: ED Notes Filed: 06/02/2021 2:52 PM Note Text: BACK FROM XRAY [facility] ED NOTE HNO ID: [id number] Author: Melania Juares RN Service: Emergency Medicine Author Type: Registered Nurse Type: ED Notes Filed: 06/02/2021 2:52 PM Note Text: DURING EDP ATTENDING EVAL AND INFO GATHERING ON PT TO DETERMINE THE PROPER WORKUP, PT IS LONG WINDED ABOUT DETAILED HISTORY OF DIFFERENT AND MULTIPLE HOSPITAL SYSTEMS HATING EACH OTHER AND NOT SHARING HIS WORKUP RESULTS AND INFORMATION AND HE GOES FROM ONE TO THE OTHER. HE HAS EVERY CONCERN POSSIBLE AND WANTS MULTIPLE DETAILED IMAGING DONE FROM ECHOCARDIOGRAMS TO KIDNEY CT AND CT ANGIO OF CHEST. PT C/O BILAT HAND NUMBNESS AND COLD FEELINGS- DESPITE HAVING RED FLUSHED WARM EXTREMITIES WITH CAP REFILL IN NAILBEDS LESS THAN 2 SECONDS. PT SPEAKING IN FULL SENTENCES IN NO DISTRESS. ABLE TO ADJUST SELF IN BED WITHOUT ANY ISSUE OR DISTRESS. VITALS STABLE ON FIELD SECRETARY IN A SINUS RHYTHM. HE DENIES HAVING 99 VISITS TO ER'S AND MEDICAL FACILITIES DRS OFFICES ETC BUT IN THE SAME BREATH TALKS ABOUT ALL HIS HOSPITAL HOPPING. [facility] ED NOTE HNO ID: [id number] Author: Melania Juares RN Service: Emergency Medicine Author Type: Registered Nurse Type: ED Notes Filed: 06/02/2021 2:44 PM Note Text: Labs sent and pt to xray now [facility] ED NOTE HNO ID: [id number] Author: Melania Juares RN Service: Emergency Medicine Author Type: Registered Nurse Type: ED Notes Filed: 06/02/2021 2:17 PM Note Text: PT STATES CHEST PRESSURE TODAY. CALLED Squad for eval and now here in ER. Pt states has a thoracic aneurysm that he does not know the size of. 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 Patient is well-known to multiple hospital systems throughout the [facility] region. Patient has been seen multiple times with the [facility] facilities as well as [facility] nearly on a daily basis. He has been worked up on multiple occasions regarding this possible aortic aneurysm due to his frequent presentations for chest pains. Patient does have a multidisciplinary care note which was reviewed upon his arrival. The patient states that this is what he was told his identity and denies is actually being him. He is presenting today with similar symptoms per this note as well as his previous visits of palpitations and chest pains that occurred shortly after eating. Given his history of his aortic aneurysm has had him concerned. He states the pain came and went and was now pain-free. Otherwise denies any recent fevers, chills, nausea or vomiting. Patient is difficult to get a history from as he does deviate topics to other medical problems which have been failed to be accurately diagnosed with all these visits. Patient states he does follow with physicians on an outpatient basis who have been recommending various procedures again which she is unable to further describe. He otherwise has no other concerns and states this is similar to issues he has had in the past. PAST MEDICAL HISTORY Diagnosis Date - Hemorrhoids - Hypertension - Hypoglycemia No past surgical history on file. No family history on file. Social History Tobacco Use - Smoking status: Former Smoker Types: Cigarettes - Smokeless tobacco: Never Used Vaping Use - Vaping Use: Never used Substance and Sexual Activity - Alcohol use: Yes Alcohol/week: 7.0 standard drinks Types: 7 Cans of beer per week Comment: pt sts a beer a day. daily - Drug use: No - Sexual activity: Not on file ALLERGIES Allergen Reactions - Caffeine Rash Other reaction(s): Shakiness - [place] GI Upset, Rash, Vomiting Statused by Person: ?Imelda Meza.([facility]) on Statused by Person: ?SRAVANTHI MONGE([facility]) on Statused by Person: ?Imelda Meza.([facility]) on Statused by Person: ?SRAVANTHI MONGE([facility]) on - Amoxicillin GI Upset - Chocolate Flavor GI Upset - Ciprofloxacin Other: See Comments - Diazepam Unknown - Fentanyl Mental Status Change - Lorazepam GI Upset Other reaction(s): Abdominal Pain - Seasonal Allergies GI Upset Abdominal pain Abdominal pain - Serotonin Hcl Mental Status Change 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 HENT: Negative for congestion, nosebleeds and sore throat. Eyes: Negative for pain, discharge and redness. Respiratory: Negative for cough and shortness of breath. Cardiovascular: Positive for chest pain and palpitations. Negative for leg swelling. Gastrointestinal: Negative for abdominal pain, nausea and vomiting. Genitourinary: Negative for dysuria and hematuria. Musculoskeletal: Negative for back pain. Skin: Negative for pallor and rash. Neurological: Negative for headaches. Psychiatric/Behavioral: Negative for confusion. Physical Exam BP 147/105 Pulse 72 Temp 98.6 Resp 25 Wt 185 lb (83.9kg) SpO2 98% Physical Exam Vitals and nursing note reviewed. Constitutional: General: He is not in acute distress. Appearance: He is well-developed. He is not ill-appearing. HENT: Head: Normocephalic and atraumatic. Right Ear: External ear normal. Left Ear: External ear normal. Eyes: General: No scleral icterus. Right eye: No discharge. Left eye: No discharge. Conjunctiva/sclera: Conjunctivae normal. Pupils: Pupils are equal, round, and reactive to light. Cardiovascular: Rate and Rhythm: Normal rate and regular rhythm. Pulses: Radial pulses are 2+ on the right side and 2+ on the left side. Heart sounds: S1 normal and S2 normal. No murmur heard. No friction rub. No gallop. Pulmonary: Effort: Pulmonary effort is normal. No respiratory distress. Breath sounds: Normal breath sounds. No wheezing or rales. Chest: Chest wall: No tenderness. Abdominal: General: Bowel sounds are normal. There is no distension. Palpations (more content not included)... [facility] HIV 1/2 ANTIGEN/ANTIBODY SCR EEN WITH REFLEX TO CONFIRMATIONon 06-02-2021 Lab Specimen Source Normal [facility] Comment on above: Performed By: #### H IV ####[id number] [address] HIV 1+2 Ab Qn (S) Non-Reactive See Below [address] [facility] [address] Work Phone: Comment on above: SOURCE: Reference Ra nge: NONREACTIVE HIV Ag/Ab screen is performed using the Siemens [employer] HIV Ag/Ab Combo assay which detects the presence of HIV p24 antigen as well as antibodies to HIV-1 (Group M and O) and HIV-2..No laboratory evidence of HIV infection. If acute HIV infection is suspected, consider testing for HIV RNA by PCR (viral load). Laboratory - Chemistry and C hemistry - challengeon 06-02-2021 Albumin BCP dye [Mass/Vol] 4.4 g/dL 3.4 - 5.[address] [facility] [address] Work Phone: [phone] ALP [Catalytic activity/Vol] 60 U/L 33 - [address] [facility] [address] Work Phone: [phone] ALT With P-5'-P [Catalytic activity/Vol] 24 U/L 10 - [address] [facility] [address] Work Phone: [phone] Comment on above: Patients treated wit h Sulfasalazine may generate falsely decreased results for ALT. Anion gap [Moles/Vol] 12 mmol/L 10 - [address] [facility] [address] Work Phone: [phone] AST With P-5'-P [Catalytic activity/Vol] 20 U/L 9 - [address] [facility] [address] Work Phone: [phone] Bilirubin [Mass/Vol] 0.5 mg/dL 0.0 - 1.[address] [facility] [address] Work Phone: [phone] Calcium [Mass/Vol] 9.4 mg/dL 8.6 - 10.[address] [facility] [address] Work Phone: [phone] Chloride [Moles/Vol] 101 mmol/L 98 - [address] [facility] [address] Work Phone: [phone] CO2 [Moles/Vol] 27 mmol/L 21 - [address] [facility] [address] Work Phone: [phone] Creatinine [Mass/Vol] 0.97 mg/dL See Below [address] [facility] [address] Work Phone: [phone] Comment on above: Reference Range: 0.5 0 - 1.30 Glucose [Mass/Vol] 93 mg/dL 74 - [address] [facility] [address] Work Phone: Potassium [Moles/Vol] 4.4 mmol/L 3.5 - 5.[address] [facility] Work Phone: Protein [Mass/Vol] 7.1 g/dL 6.4 - 8.[address] [facility] [address] Work Phone: Sodium [Moles/Vol] 136 mmol/L 136 - [address] [facility] [address] Work Phone: Urea nitrogen [Mass/Vol] 12 mg/dL 6 - [address] [facility] [address] Work Phone: Magnesium, Serumon 1 Magnesium [Mass/Vol] 2.00 mg/dL See Below [address] [facility] [address] Work Phone: Comment on above: Reference Range: 1.6 0 - 2.40 No Panel Informationon 06-02 [email or web address] e?[email or web address]=[id number]&Da te=07-01-2021&Time=21%3a 43%3a26%3a00&TestType=EC G&Site=2&OutputType=PDF& Ext=PDF [facility] [address] Work Phone: Normal sinus rhythm [facility] [address] Work Phone: Abnormal [facility] [address] Work Phone: [phone] [facility] [address] Work Phone: [phone] [facility] [address] Work Phone: [phone] [facility] [address] Work Phone: [phone] [facility] [address] Work Phone: [phone] [facility] [address] Work Phone: [phone] [facility] [address] Work Phone: [phone] [facility] [address] Work Phone: [phone] [facility] [address] Work Phone: [phone] [facility] [address] Work Phone: [phone] [facility] [address] Work Phone: [phone] [facility] [address] Work Phone: [phone] [facility] [address] Work Phone: [phone] [facility] [address] Work Phone: [phone] [facility] [address] Work Phone: >[phone] >[address] [facility] [address] Work Phone: Comment on above: CALCULATIONS OF NIKOLE MATED GFR ARE PERFORMED USING THE MDRD STUDY EQUATION FOR THE IDMS-TRACEABLE CREATININE METHODS. CLIN CHEM 2007;53:766-72 Phosphorus, Serumon 06-02-20 21 Phosphate [Mass/Vol] 4.6 mg/dL 2.5 - 4.[address] [facility] [address] Work Phone: Comment on above: The performance tahira acteristics of phosphorus testing in heparinized plasma have been validated by the individual laboratory site where testing is performed. Testing on heparinized plasma is not approved by the FDA; however, such approval is not necessary. Radiologyon 06-02-2021 XR Chest Single view Normal [address] [facility] [address] Work Phone: TROPONIN Ion 06-02-2021 Troponin I.cardiac [Mass/Vol] 0.000 ng/mL Normal <0.040 [facility] Comment on above: Order Comment: Speci men Type: BLOOD SPECIMEN Performed By: #### T ROP #### [facility] CLIA [id number] [address] [place] [address] Triage - EDon 06-02-2021 Triage - ED Chart Review: ARRIVAL INFORMATION Mode of Arrival: ambulance Agency Name: [facility] CHIEF COMPLAINT HOSEA ALVAREZ is a Male patient with a chief complaint of multiple medical complaints. Other Complaints: Back pain, Hypertension from too much caffeine, wants to see social work. Triage Date/Time: 02-Jun-2021 20:19 WILMAN: 3 Pain Rating (0-10): 3 = Mild Pain location: Upper back Vital Signs: Temperature: 97.3F ( 36.2C) taken oral Blood Pressure: 114/81 Mean: Heart Rate: 64 Respiratory Rate: 17 Pulse Oximetry: 98% on room air, no respiratory support. Height: 5 feet 6.00 inches. 167.6 CM Weight: 185.1 pounds. Calculated 84.0 kg. (stated) Calculated BMI (kg/m2): 29.904 Calculated BSA (m2) 1.98 [place] Coma Scale: Best Eye Response: (E4) spontaneous Best Motor Response: (M6) obeys commands Best Verbal Response: (V5) oriented [place] Score: 15 Cough lasting greater than 3 weeks: no Allergies: yes Patient has homicidal thoughts: no Risk Screens Suicide Risk Screen In the Past Month: Have you wished you were or wished you could go to sleep and not wake up no In the Past Month: Have you had any actual thoughts of killing yourself no In Your Lifetime: Have you ever done anything, started to do anything, or prepared to do anything to end your life no [place] Fall Scale Screening Has the patient fallen before (or is the patient in the ED as a result of a fall) has not had a fall Does the patient have an impaired gait does not have impaired gait Is the patient cognitively impaired not cognitively impaired Interventions: Molina Fall Interventions: LOW INTERVENTIONS: *patient oriented to surroundings and call system, * patient/family falls education completed and documented, *patients fall status communicated during bedside handoff, *whiteboard updated, *mode of toileting discussed with patient, *bed in low position with brakes locked, *call light in reach, * non-skid footwear TRAVEL HISTORY Travel History Coronavirus Screening: no exposure or symptoms Travel Exposure History: NO travel to International locations in the past 30 days PAIN Pain Scale Used: SHANNON Pain Rating (0-10): 3 = Mild Past Medical History: Past Medical History Reviewedno Electronic Signatures: Norma Zambrano (RN) (Signed 02-Jun-2021 20:23) Authored: Quick Triage, Risk Screens, Pain, Travel History, Chart Review, Scores, Past Medical History Last Updated: 02-Jun-2021 20:23 by Norma Zambrano (RN) Normal [facility] XR CHEST 2V FRONTAL/LATon XR CHEST 2V FRONTAL/LAT * * *Final Report* * * DATE OF EXAM: Jun 02 2021 2:59PM ANX [id number] - XR CHEST 2V FRONTAL/LAT / PROCEDURE REASON: Chest pain * * * * Physician Interpretation * * * * EXAMINATION: CHEST RADIOGRAPH (2 VIEW FRONTAL and LATERAL) CLINICAL HISTORY: Chest pain MQ: [id number] EXAM DATE/TIME: 06/02/2021 2:59 PM COMPARISON: Chest 2 views 05/11/2021 RESULT: Lines, tubes, and devices: None. Lungs and pleura: No consolidation. No lung mass. No pleural effusion. No pneumothorax. Cardiomediastinal silhouette: Within normal limits and unchanged.. Bones and soft tissues: Unremarkable. IMPRESSION: No acute radiographic abnormality. Bpm Solution Architect: PSCB Transcribe Date/Time: Jun 02 2021 3:14P Dictated by : KRISTEN CONWAY MD This examination was interpreted and the report reviewed and electronically signed by: KRISTEN CONWAY MD on Jun 02 2021 3:16PM EST [id number] [facility] Complete Blood Count + Diffe rentialon 05-31-2021 Basophils/100 WBC (Bld) 0.4 % 0.0 - 2.[address] [facility] [address] Work Phone: Erythrocyte distribution width (RBC) [Ratio] 13.0 % See Below [address] [facility] [address] Work Phone: Comment on above: Reference Range: 11. 5 - 14.5 Hematocrit (Bld) [Volume fraction] 39.3 % below low threshold See Below [address] [facility] [address] Work Phone: Comment on above: Reference Range: 41. 0 - 52.0 Hemoglobin (Bld) [Mass/Vol] 13.0 g/dL below low threshold See Below [address] [facility] [address] Work Phone: [phone] Comment on above: Reference Range: 13. 5 - 17.5 Lymphocytes/100 WBC (Bld) 27.8 % See Below [address] [facility] [address] Work Phone: [phone] Comment on above: Reference Range: 13. 0 - 44.0 MCHC (RBC) [Mass/Vol] 33.1 g/dL See Below [address] [facility] [address] Work Phone: [phone] Comment on above: Reference Range: 32. 0 - 36.0 MCV (RBC) [Entitic vol] 85 fL 80 - [address] [facility] [address] Work Phone: [phone] Monocytes/100 WBC (Bld) 11.6 % 2.0 - 10.[address] [facility] [address] Work Phone: [phone] Neutrophils/100 WBC (Bld) 58.1 % See Below [address] [facility] [address] Work Phone: [phone] Comment on above: Reference Range: 40. 0 - 80.0 Platelets (Bld) [#/Vol] 125 10*3/uL below low threshold 150 - [address] [facility] [address] Work Phone: [phone] RBC (Bld) [#/Vol] 4.65 {x10E12/L} See Below [address] [facility] [address] Work Phone: [phone] Comment on above: Reference Range: 4.5 0 - 5.90 WBC (Bld) [#/Vol] 2.8 10*3/uL below low threshold 4.4 - 11.[address] [facility] [address] Work Phone: [phone] Complete Blood Count + Differential 0.01 {x10E9/L} See Below [address] [facility] [address] Work Phone: [phone] Comment on above: Reference Range: 0.0 0 - 0.10 Complete Blood Count + Differential 0.06 {x10E9/L} See Below [address] [facility] [address] Work Phone: [phone] Comment on above: Reference Range: 0.0 0 - 0.70 Complete Blood Count + Differential 0.33 {x10E9/L} See Below [address] [facility] [address] Work Phone: [phone] Comment on above: Reference Range: 0.1 0 - 1.00 Complete Blood Count + Differential 0.79 {x10E9/L} below low threshold See Below [address] [facility] Work Phone: [phone] Comment on above: Reference Range: 1.2 0 - 4.80 Complete Blood Count + Differential 1.65 {x10E9/L} See Below [address] [facility] Work Phone: [phone] Comment on above: Reference Range: 1.2 0 - 7.70 Complete Blood Count + Differential 2.1 % 0.0 - 6.[address] [facility] [address] Work Phone: [phone] Complete Blood Count + Differential 0.0 % 0.0 - 0.[address] [facility] [address] Work Phone: [phone] Comment on above: Immature Granulocyte Count (IG) includes promyelocytes, myelocytes and metamyelocytes but does not include bands. Percent differential counts (%) should be interpreted in the context of the absolute cell counts (cells/L). Laboratory - Chemistry and C hemistry - challengeon 05-31-2021 Anion gap [Moles/Vol] 10 mmol/L 10 - [address] [facility] [address] Work Phone: [phone] Calcium [Mass/Vol] 9.1 mg/dL 8.6 - 10.[address] [facility] [address] Work Phone: [phone] Chloride [Moles/Vol] 103 mmol/L 98 - [address] [facility] [address] Work Phone: [phone] CO2 [Moles/Vol] 27 mmol/L 21 - [address] [facility] [address] Work Phone: [phone] Creatinine [Mass/Vol] 0.92 mg/dL See Below [address] [facility] [address] Work Phone: [phone] Comment on above: Reference Range: 0.5 0 - 1.30 Glucose [Mass/Vol] 101 mg/dL above high threshold 74 - [address] [facility] [address] Work Phone: [phone] Potassium [Moles/Vol] 3.9 mmol/L 3.5 - 5.[address] [facility] [address] Work Phone: [phone] Sodium [Moles/Vol] 136 mmol/L 136 - [address] [facility] [address] Work Phone: [phone] Urea nitrogen [Mass/Vol] 14 mg/dL 6 - [address] [facility] [address] Work Phone: [phone] Panel Informationon 05-31 >60 >[address] [facility] Work Phone: [phone] Comment on above: CALCULATIONS OF NIKOLE MATED GFR ARE PERFORMED USING THE MDRD STUDY EQUATION FOR THE IDMS-TRACEABLE CREATININE METHODS. CLIN CHEM 2007;53:766-72 [email or web address] e?[email or web address]=[id number]&Da te=05-01-2021&Time=07%3a 29%3a08%3a00&TestType=EC G&Site=13&OutputType=PDF &Ext=PDF [address] [facility] [address] Work Phone: [phone] Sinus rhythm [address] [facility] [address] Work Phone: [phone] [address] [facility] [address] Work Phone: [phone] [facility] [address] Work Phone: [phone] [facility] [address] Work Phone: [phone] [facility] [address] Work Phone: [phone] [facility] [address] Work Phone: [phone] [facility] [address] Work Phone: [phone] [facility] [address] Work Phone: [phone] [facility] [address] Work Phone: [phone] [facility] [address] Work Phone: [address] [facility] [address] Work Phone: [address] [facility] [address] Work Phone: [address] [facility] [address] Work Phone: Radiologyon 05-31-2021 XR Abdomen AP Normal [address] [facility] Work Phone: [phone] XR Chest Single view Normal [address] [facility] [address] Work Phone: Troponin I, Serumon 05-31-20 Troponin I.cardiac [Mass/Vol] ng/mL See Below [address] [facility] [address] Work Phone: Comment on above: Reference Range: 0.0 0 - 0.03LESS THAN 0.04 NG/ML: NEGATIVEREPEAT TESTING IN THREE TO SIX HOURSIF CLINICALLY INDICATED.0.04 - 0.5 NG/ML: CONSISTENT WITH POSSIBLECARDIAC DAMAGE AND POSSIBLE INCREASEDCLINICAL RISK.SERIAL MEASUREMENTS MAY HELP ASSESS EXTENT OFMYOCARDIAL DAMAGE.>0.5 NG/ML: CONSISTENT WITH CARDIAC DAMAGE,INCREASED CLINICAL RISK AND MYOCARDIALINFARCTION. SERIAL MEASUREMENTS MAY HELPASSESS EXTENT OF MYOCARDIAL DAMAGE..Note: Troponin I testing is performed using different testing methodology at [facility] than at other [facility]. Direct result comparisons should only be made within the same method. Troponin I.cardiac [Mass/Vol] ng/mL See Below [address] [facility] Work Phone: Comment on above: Reference Range: 0.0 0 - 0.03LESS THAN 0.04 NG/ML: NEGATIVEREPEAT TESTING IN THREE TO SIX HOURSIF CLINICALLY INDICATED.0.04 - 0.5 NG/ML: CONSISTENT WITH POSSIBLECARDIAC DAMAGE AND POSSIBLE INCREASEDCLINICAL RISK.SERIAL MEASUREMENTS MAY HELP ASSESS EXTENT OFMYOCARDIAL DAMAGE.>0.5 NG/ML: CONSISTENT WITH CARDIAC DAMAGE,INCREASED CLINICAL RISK AND MYOCARDIALINFARCTION. SERIAL MEASUREMENTS MAY HELPASSESS EXTENT OF MYOCARDIAL DAMAGE..Note: Troponin I testing is performed using different testing methodology at [facility] than [facility]. Direct result comparisons should only be made within the same method. No Panel Informationon 05-30 [email or web address] e?BywabiqTI=[id number]&Da te=03-31-2021&Time=01%3a 02%3a37%3a00&TestType=EC G&Site=13&OutputType=PDF &Ext=PDF [address] [facility] [address] Work Phone: Sinus rhythm [address] [facility] [address] Work Phone: Normal [address] [facility] [address] Work Phone: [phone] [facility] [address] Work Phone: [phone] [facility] [address] Work Phone: [phone] [facility] [address] Work Phone: [phone] [facility] Work Phone: [phone] [facility] [address] Work Phone: [phone] [facility] Work Phone: [phone] [facility] [address] Work Phone: [phone] [facility] [address] Work Phone: [phone] [facility] Work Phone: [phone] [facility] Work Phone: [phone] [facility] Work Phone: [phone] [facility] [address] Work Phone: [phone] CORONAVIRUS 2019 BY PCRon SARS-CoV-2 (COVID-19) RNA TATI+probe Ql (Unsp spec) Not detected Normal Not Detected [facility] Comment on above: Result Comment: . This assay is designed to detect the ORF1ab and/or S genes of SARS-CoV-2 via nucleic acid amplification. A Not Detected result does not preclude 2019-nCoV infection since the adequacy of sample collection and/or low viral burden may result in presence of viral nucleic acids below the clinical sensitivity of this test method. Fact sheet for providers: www.fda.gov/media/611715/download Fact sheet for patients: www.fda.gov/media/990084/download This test has received FDA Emergency Use Authorization (EUA) and has been verified by [facility] ([facility]). This test is only authorized for the duration of time that circumstances exist to justify the authorization of the emergency use of in vitro diagnostic tests for the detection of SARS-CoV-2 virus and/or diagnosis of COVID-19 infection under section 564(b)(1) of the Act, 21 U.S.C. 360bbb-3(b)(1), unless the authorization is terminated or revoked sooner. [facility] is certified under CLIA-88 as qualified to perform high complexity testing. Testing is performed in the [facility] laboratories located at [address] [place] [address]. Performed By: #### C BCDF #### [place] [address] Lab Specimen Source Nasal, Nasopharyngeal Normal [facility] Comment on above: Performed By: #### C BCDF #### [place] [address] Covid 19 Resultson 1 SARS-CoV-2 (COVID-19) RNA TATI+probe Ql (Unsp spec) NEGATIVE COVID-19 Test Coronaviruses are common world-wide and are the cause of many common colds. SARS-COV2 is a new coronavirus that began circulating worldwide in 2019 so we are calling it COVID-19. It has been estimated that four out of five patients with COVID-19 will recover at home without the need for medical attention. Symptoms of COVID-19 may include cough, fever, shortness of breath, loss of taste or smell and other flu-like symptoms including chills, sore muscles, sore throat, and headache. Severe illness is more common in older people and people with other health problems such as high blood pressure, obesity, and immune system problems. If the test is positive, you have COVID-19. You will be contacted by the ordering physicians office and instructed to remain on home isolation, in accordance with CDC guidelines. You may also be contacted by the [facility] to see if any of your close contacts may have been exposed to the virus and need to quarantine. If the test is negative, you likely do not have COVID-19 at this time, but you still may have a different illness that can spread to other people (like Influenza, or the Flu) and could still be at risk for getting COVID-19. We recommend that you stay away from other people to limit the spread of illness until your symptoms are improving and you are fever-free for 24 hours without the use of fever lowering medications such as acetaminophen or ibuprofen. No test is 100% accurate so if you are still concerned you may have COVID-19, talk to your doctor about the need to continue to stay away from others. Medicines Unless your provider told you not to use the following: Acetaminophen (Tylenol and others) is generally safe. Anti-inflammatory medications, such as Ibuprofen (Advil or Motrin) or Naproxen (Aleve) can also be used. Brre-hkv-elqxidc cough and cold medicines can be used according to the instructions on the package. Some zmbg-xzr-tqouuch medicines also contain acetaminophen. Make sure you are not taking more than your recommended dose. For those not hospitalized, there is no specific treatment available for this illness. Antibiotics do not treat Coronaviruses. Follow-Up Follow up with your doctor by scheduling a virtual visit or consider follow-up at one of our urgent care fever clinics. If you are having difficulty breathing, or are very weak and having difficulty standing, this is a medical emergency. Call 911 or have someone take you to the nearest emergency room immediately. If possible, wear a facemask. Additional guidance from the CDC for patients who tested POSITIVE for COVID-19 How to isolate: Isolate yourself in a specific room at home and limit your contact with others. Use a separate bathroom from other members of the household, when possible. Leave home only to get essential medical care. Do not go to work, school or public areas. Avoid using public transportation, ride-sharing, or taxis. Restrict contact with pets and other animals. If you must care for your pet or be around animals while you are sick, wash your hands before and after your interaction and wear a facemask. Make sure that shared spaces in the home have good airflow, such as by an air conditioner or an opened window, weather permitting. Personal Hygiene Procedures: Wear a face mask when in the same room as other people or pets. If a face mask interferes with your breathing, others should wear a mask when sharing space with you. Frequent hand-washing: wash your hands with soap and water for at least 20 seconds. If soap and water are not available, use alcohol-based hand market research manager. Avoid touching your eyes, nose, and mouth with unwashed hands. Household Hygiene Procedures: Avoid sharing personal household items such as dishes, glassware, cups, eating utensils, towels or bedding with other people or pets in your home. After use, these items should be washed with soap and hot water. Disinfect all high-touch surfaces every day with antibacterial cleaning solutions such as Lysol wipes, bleach, cleansers, etc. High-touch surfaces include tabletops, doorknobs, bathroom fixtures, toilets, phones, keyboards, tablets and bedside tables. Immediately clean any surfaces that may have blood, poop or body fluids on them, using antibacterial cleaning solutions such as Lysol wipes, bleach, cleansers, etc. If clothing or bedding come into contact with blood, poop or body fluids, they should be washed immediately. Follow the directions on the laundry detergent and clothing labels but hot water is recommended when possible. Stopping home isolation precautions: If possible, consult your doctor before stopping home isolation precautions. According to the CDC, you can discontinue home isolation precautions when you have met both of these criteria: Your fever and respiratory symptoms have been gone for 24 guerline (more content not included)... Normal [facility] CT Abdomen / Pelvis w IV onl yon 05-27-2021 CT Abdomen / Pelvis w IV only CT ABDOMEN AND PELVIS WITH CONTRAST CLINICAL INDICATION: Abdominal tenderness TECHNIQUE: Transaxial sequence through the abdomen and pelvis with 3 mm reconstruction with following administration of oral contrast and dynamic intravenous infusion of 75 mL of 370 mg% contrast media. Coronal and sagittal reconstructions included. Dose reduction was employed with automated exposure control. COMPARISON: None FINDINGS: Chest base: Normal. Liver: Normal size and contour. No focal lesion. Biliary tree: Normal caliber. Nondistended gallbladder. Spleen: Normal. Adrenals: Normal. Pancreas: Normal. Kidneys: Symmetric enhancement. No radiopaque urinary calculi. No hydronephrosis. There is mild left hydroureter. 3 cm left renal cyst. Mildly hyperdense 1.2 cm right renal lesion with helpful units of +21. A second hyperdense lesion arising from the posterior aspect of the right kidney measures 1.6 cm and demonstrates Hounsfield units of +66. Free fluid: None. Retroperitoneal/mesenter ic lymphadenopathy: None. Aorta: Normal caliber. Bowel: Normal caliber. The appendix is not identified, however there are no pericecal inflammatory changes. Abdominal wall: Normal. Pelvic organs/viscera: No mass identified. Pelvic lymphadenopathy: None. Osseous structures: Normal. IMPRESSION: 1. Mild left hydroureter. No radiopaque urinary calculus. These findings could be related to a recently passed calculus, infection or an occult obstructive process. Correlate with patient history including urinalysis. Consider follow-up imaging. 2. Hyperdense right renal lesions, which could represent complex cysts or solid masses. Recommend contrast-enhanced MRI for further evaluation. Report Dictated on Authenticated by: Keith Iraheta On: 05/27/2021 21:51 Read by: KEITH IRAHETA MD Date: 05/27/2021 21:51 Normal [facility] Coronavirus 2019 RNA by PCR, Symptomaticon 05-27-2021 Coronavirus 2019 RNA by PCR, Symptomatic Not detected Normal See Below [email or web address] [facility] [address] Work Phone: Comment on above: SOURCE: Nasal, Nasop haryngealReference Range: Not Detected.This assay is designed to detect the ORF1ab and/or S genes of SARS-CoV-2 via nucleic acid amplification. A Not Detected result does not preclude 2019-nCoV infection since the adequacy of sample collection and/or low viral burden may result in presence of viral nucleic acids below the clinical sensitivity of this test method. Fact sheet for providers: www.fda.gov/media/604409/downloadFact sheet for patients: www.fda.gov/media/565007/downloadThis test has received FDA Emergency Use Authorization (EUA) and has been verified by [facility] ([facility]). This test is only authorized for the duration of time that circumstances exist to justify the authorization of the emergency use of in vitro diagnostic tests for the detection of SARS-CoV-2 virus and/or diagnosis of COVID-19 infection under section 564(b)(1) of the Act, 21 U.S.C. 360bbb-3(b)(1), unless the authorization is terminated or revoked sooner. [facility] is certified under CLIA-88 as qualified to perform high complexity testing. Testing is performed in the [facility] laboratories located at [address] [place] [address]. No Panel Informationon 05-27 [email or web address]?RetrieveTestByDateTim e?[email or web address]=[id number]&Da te=12-30-2020&Time=06%3a 47%3a40%3a00&TestType=EC G&Site=13&OutputType=PDF &Ext=PDF [facility] Work Phone: [phone] Sinus rhythm [facility] Work Phone: [phone] [facility] Work Phone: [phone] [facility] Work Phone: [phone] [facility] Work Phone: [phone] [facility] Work Phone: [phone] [facility] Work Phone: [phone] [facility] Work Phone: [phone] [facility] Work Phone: [phone] [facility] Work Phone: [phone] [facility] Work Phone: [phone] [facility] Work Phone: [phone] [facility] Work Phone: [phone] [facility] Work Phone: [phone] [facility] Work Phone: [phone] [facility] Work Phone: Radiologyon 05-27-2021 XR Chest 2 Views Normal [facility] [address] [facility] [address] Work Phone: Complete Blood Count + Diffe rentialon 05-24-2021 Basophils/100 WBC (Bld) 0.6 % 0.0 - 2.0 [facility] Work Phone: [phone] Erythrocyte distribution width (RBC) [Ratio] 13.2 % See Below [facility] Work Phone: [phone] Comment on above: Reference Range: 11. 5 - 14.5 Hematocrit (Bld) [Volume fraction] 40.0 % below low threshold See Below [facility] Work Phone: [phone] Comment on above: Reference Range: 41. 0 - 52.0 Hemoglobin (Bld) [Mass/Vol] 13.0 g/dL below low threshold See Below [facility] Work Phone: [phone] Comment on above: Reference Range: 13. 5 - 17.5 Lymphocytes/100 WBC (Bld) 25.6 % See Below [facility] Work Phone: [phone] Comment on above: Reference Range: 13. 0 - 44.0 MCHC (RBC) [Mass/Vol] 32.5 g/dL See Below [facility] Work Phone: [phone] Comment on above: Reference Range: 32. 0 - 36.0 MCV (RBC) [Entitic vol] 86 fL 80 - 100 [facility] Work Phone: [phone] Monocytes/100 WBC (Bld) 9.6 % 2.0 - 10.0 [facility] Work Phone: [phone] Neutrophils/100 WBC (Bld) 61.7 % See Below [facility] Work Phone: [phone] Comment on above: Reference Range: 40. 0 - 80.0 Platelets (Bld) [#/Vol] 147 10*3/uL below low threshold 150 - 450 [facility] Work Phone: [phone] RBC (Bld) [#/Vol] 4.64 {x10E12/L} See Below [facility] Work Phone: Comment on above: Reference Range: 4.5 0 - 5.90 WBC (Bld) [#/Vol] 3.6 10*3/uL below low threshold 4.4 - 11.3 [facility] Work Phone: [phone] Complete Blood Count + Differential 0.02 {x10E9/L} See Below [facility] Work Phone: [phone] Comment on above: Reference Range: 0.0 0 - 0.10 Complete Blood Count + Differential 0.08 {x10E9/L} See Below [facility] Work Phone: [phone] Comment on above: Reference Range: 0.0 0 - 0.70 Complete Blood Count + Differential 0.34 {x10E9/L} See Below [facility] Work Phone: [phone] Comment on above: Reference Range: 0.1 0 - 1.00 Complete Blood Count + Differential 0.91 {x10E9/L} below low threshold See Below [facility] Work Phone: [phone] Comment on above: Reference Range: 1.2 0 - 4.80 Complete Blood Count + Differential 2.20 {x10E9/L} See Below [facility] Work Phone: Comment on above: Reference Range: 1.2 0 - 7.70 Complete Blood Count + Differential 2.2 % 0.0 - 6.0 [facility] Work Phone: Complete Blood Count + Differential 0.3 % 0.0 - 0.9 [facility] Work Phone: [phone] Comment on above: Immature Granulocyte Count (IG) includes promyelocytes, myelocytes and metamyelocytes but does not include bands. Percent differential counts (%) should be interpreted in the context of the absolute cell counts (cells/L). Laboratory - Chemistry and C hemistry - challengeon 05-24-2021 Albumin BCP dye [Mass/Vol] 4.1 g/dL 3.4 - 5.0 [facility] Work Phone: ALP [Catalytic activity/Vol] 55 U/L 33 - 120 [facility] Work Phone: [phone] ALT With P-5'-P [Catalytic activity/Vol] 16 U/L 10 - 52 [facility] Work Phone: [phone] Comment on above: Patients treated wit h Sulfasalazine may generate falsely decreased results for ALT. Anion gap [Moles/Vol] 9 mmol/L below low threshold 10 - 20 [facility] Work Phone: [phone] AST With P-5'-P [Catalytic activity/Vol] 18 U/L 9 - 39 [facility] Work Phone: [phone] Bilirubin [Mass/Vol] 0.3 mg/dL 0.0 - 1.2 [facility] Work Phone: [phone] Calcium [Mass/Vol] 9.1 mg/dL 8.6 - 10.3 [facility] Work Phone: [phone] Chloride [Moles/Vol] 106 mmol/L 98 - 107 [facility] Work Phone: [phone] CO2 [Moles/Vol] 28 mmol/L 21 - 32 [facility] Work Phone: [phone] Creatinine [Mass/Vol] 0.89 mg/dL See Below [facility] Work Phone: [phone] Comment on above: Reference Range: 0.5 0 - 1.30 Glucose [Mass/Vol] 92 mg/dL 74 - 99 [facility] Work Phone: [phone] Potassium [Moles/Vol] 4.6 mmol/L 3.5 - 5.3 [facility] Work Phone: [phone] Protein [Mass/Vol] 7.1 g/dL 6.4 - 8.2 [facility] Work Phone: [phone] Sodium [Moles/Vol] 138 mmol/L 136 - 145 [facility] Work Phone: [phone] Urea nitrogen [Mass/Vol] 13 mg/dL - [facility] Work Phone: [phone] Lipase, Serumon 05-24-2021 Lipase [Catalytic activity/Vol] 18 U/L 9 - 82 [facility] Work Phone: Comment on above: Venipuncture immedia tely after or during the administration of Metamizole may lead to falsely low results. Testing should be performed immediately prior to Metamizole dosing. Y-snaecg-z-benzoquinone imine (metabolite of Acetaminophen) will generate erroneously low results in samples for patients that have taken toxic doses of acetaminophen. No Panel Informationon 05-24 >60 >60 [facility] Work Phone: Comment on above: CALCULATIONS OF NIKOLE MATED GFR ARE PERFORMED USING THE MDRD STUDY EQUATION FOR THE IDMS-TRACEABLE CREATININE METHODS. CLIN CHEM 2007;53:766-72 [email or web address]?RetrieveTestByDateTim e?FcfgpayUM=[id number]&Da te=10-01-2020&Time=19%3a 20%3a42%3a00&TestType=EC G&Site=13&OutputType=PDF &Ext=PDF [facility] Work Phone: [phone] [facility] [address] [facility] Work Phone: [phone] [facility] [address] [facility] Work Phone: [phone] [facility] [address] [facility] Work Phone: [phone] [facility] [address] [facility] Work Phone: [phone] [facility] [address] [facility] Work Phone: [phone] [facility] [address] [facility] Work Phone: [phone] [facility] [address] [facility] Work Phone: [phone] [facility] [address] [facility] Work Phone: [phone] [facility] [address] [facility] Work Phone: [phone] [facility] [address] [facility] Work Phone: [phone] [facility] [address] [facility] Work Phone: [phone] [facility] [address] [facility] Work Phone: [phone] [facility] [address] [facility] Work Phone: [phone] [facility] [address] [facility] Work Phone: Radiologyon 05-24-2021 XR Chest Single view Normal [facility] Work Phone: Troponin I, Serumon 05-24-20 21 Troponin I.cardiac [Mass/Vol] ng/mL See Below [facility] Work Phone: Comment on above: Reference Range: 0.0 0 - 0.03LESS THAN 0.04 NG/ML: NEGATIVEREPEAT TESTING IN THREE TO SIX HOURSIF CLINICALLY INDICATED.0.04 - 0.5 NG/ML: CONSISTENT WITH POSSIBLECARDIAC DAMAGE AND POSSIBLE INCREASEDCLINICAL RISK.SERIAL MEASUREMENTS MAY HELP ASSESS EXTENT OFMYOCARDIAL DAMAGE.>0.5 NG/ML: CONSISTENT WITH CARDIAC DAMAGE,INCREASED CLINICAL RISK AND MYOCARDIALINFARCTION. SERIAL MEASUREMENTS MAY HELPASSESS EXTENT OF MYOCARDIAL DAMAGE..Note: Troponin I testing is performed using different testing methodology at [facility] than at other [facility] Direct result comparisons should only be made within the same method. Laboratory - Chemistry and C hemistry - challengeon 05-16-2021 Troponin T.cardiac [Mass/Vol] HS Troponin T,Gen 5 6 NG/L (-<15 NG/L) LESS THAN Sex Specific Reference Range: Male (0-22), Female (0-14) Change(Delta) >=5 is significant Troponin Baseline and Serial elevation for significant change(delta)should be interpreted in conjunction with clinical presentation, history, signs and symptoms, ECG and biomarker concentrations. Troponin elevation can be seen in several other non-infarct conditions. Chronic troponin elevations can be detected in clinically stable patients with heart failure, cardiomyopathy, renal failure, diabetes, etc. Elevated troponin can also occur in myocarditis, heart contusion, PE, drug induced cardiotoxicity, etc. Samples should NOT be taken from patients receiving high dose biotin (> 5mg) doses until 8 hours following last biotin administration. [facility] Albumin [Mass/Vol] Albumin 4.6 GM/DL (3.5-5.0 GM/DL) 3.5 - 5.0 GM/DL S Albumin/Globulin [Mass ratio] Albumin Globulin Ratio 1.5 RATIO (1.5-3.0 RATIO) 1.5 - 3.0 RATIO S ALP (Bld) [Catalytic activity/Vol] Alk Phosphatase 72 U/L (35-125 U/L) 35 - 125 U/L S ALT [Catalytic activity/Vol] ALT 20 U/L (5-40 U/L) 5 - 40 U/L S Anion gap [Moles/Vol] Anion Gap 12 MMOL/ L (0-19 MMOL/L) 0 - 19 MMOL/L S AST [Catalytic activity/Vol] AST 18 U/L (5-40 U/L) 5 - 40 U/L S Bilirubin [Mass/Vol] Total Bilirubin 0.2 MG/DL (0.1-1.2 MG/DL) 0.1 - 1.2 MG/DL [facility] Calcium [Mass/Vol] Calcium 9.5 MG/DL (8.5-10.4 MG/DL) 8.5 - 10.4 MG/DL S Chloride [Moles/Vol] Chloride 102 MMOL/L (97-107 MMOL/L) 97 - 107 MMOL/L [facility] CO2 [Moles/Vol] Carbon Dioxide 26 MM OL/L (24-31 MMOL/L) 24 - 31 MMOL/L [facility] Creatinine [Mass/Vol] Creatinine R 1.0 M G/DL (0.4-1.6 MG/DL) 0.4 - 1.6 MG/DL [facility] GFR/1.73 sq M.predicted MDRD (S/P/Bld) [Vol rate/Area] EGFR 84 mL/min/1.73 m2 (Reference Range: not available) GFR ml/min/1.73m2 Stage ----- 90 1 60-89 2 30-59 3 15-29 4 <15 5 For -Americans, multiply EGFR result by 1.210 Calculation not validated for patients under 18 years of age. Performed at [address] [address] [facility] Globulin (S) [Mass/Vol] Globulin 3.0 G/DL (1.9-3.7 G/DL) 1.9 - 3.7 G/DL S Glucose [Mass/Vol] Glucose 88 MG/DL (65 -99 MG/DL) 65 - 99 MG/DL S Potassium [Moles/Vol] Potassium R 3.8 MM OL/L (3.4-5.1 MMOL/L) 3.4 - 5.1 MMOL/L S Protein [Mass/Vol] Total Protein 7.6 G/ DL (5.9-7.9 G/DL) 5.9 - 7.9 G/DL S Sodium [Moles/Vol] Sodium 140 MMOL/L (133-145 MMOL/L) 133 - 145 MMOL/L S Troponin T.cardiac [Mass/Vol] HS Troponin T,Gen 5 6 NG/L (-<15 NG/L) LESS THAN Sex Specific Reference Range: Male (0-22), Female (0-14) Change(Delta) >=5 is significant Troponin Baseline and Serial elevation for significant change(delta)should be interpreted in conjunction with clinical presentation, history, signs and symptoms, ECG and biomarker concentrations. Troponin elevation can be seen in several other non-infarct conditions. Chronic troponin elevations can be detected in clinically stable patients with heart failure, cardiomyopathy, renal failure, diabetes, etc. Elevated troponin can also occur in myocarditis, heart contusion, PE, drug induced cardiotoxicity, etc. Samples should NOT be taken from patients receiving high dose biotin (> 5mg) doses until 8 hours following last biotin administration. [facility] Urea nitrogen [Mass/Vol] BUN 12 MG/DL (8-25 MG/DL) 8 - 25 MG/DL [facility] Urea nitrogen/Creatinine [Mass ratio] BUN Creatinine Ratio 12.0 RATIO (8-21 RATIO) 8 - 21 RATIO [facility] Laboratory - Hematology and Cell countson 05-16-2021 Basophils (Bld) [#/Vol] Abs Baso 0.02 K/UL (0.00-0.22 K/UL) 0.00 - 0.22 K/UL [facility] Basophils/100 WBC (Bld) Basophil 0.50 % (0-1 %) 0 - 1 % [facility] Differential cell count method Nom (Bld) Diff Type AUTO DIFF (Reference Range: not available) [facility] Eosinophils (Bld) [#/Vol] Abs Eos 0.06 K/UL (0-0.45 K/UL) 0 - 0.45 K/UL [facility] Eosinophils/100 WBC (Bld) Eosinophil 1.50 % (0-3 %) 0 - 3 % [facility] Erythrocyte distribution width (RBC) [Entitic vol] RDW SD 40.2 FL (37.0-54.0 FL) 37.0 - 54.0 FL [facility] Erythrocyte distribution width (RBC) [Ratio] RDW CV 12.9 % (11.7-15.0 %) 11.7 - 15.0 % [facility] Hematocrit (Bld) [Volume fraction] HCT 44.1 % (41-50 %) 41 - 50 % [facility] Hemoglobin (Bld) [Mass/Vol] HGB 14.3 GM/DL (13.5-16.5 GM/DL) 13.5 - 16.5 GM/DL [facility] Immature granulocytes (Bld) [#/Vol] Abs Imm Neut 0.01 K/UL (0.0-0.1 K/UL) 0.0 - 0.1 K/UL [facility] Lymphocytes (Bld) [#/Vol] Abs Lymph 0.91 K/UL L (1.2-3.2 K/UL) Low 1.2 - 3.2 K/UL [facility] Lymphocytes/100 WBC (Bld) Lymphocyte 22.60 % (20-40 %) 20 - 40 % [facility] MCH (RBC) [Entitic mass] MCH 28.0 PG (26-34 PG) 26 - 34 PG [facility] MCHC (RBC) [Mass/Vol] MCHC 32.4 % (31-37 %) 31 - 37 % [facility] MCV (RBC) [Entitic vol] MCV 86.3 FL (80-100 FL) 80 - 100 FL [facility] Monocytes (Bld) [#/Vol] Abs Gage 0.29 K/UL (0-0.8 K/UL) 0 - 0.8 K/UL [facility] Monocytes/100 WBC (Bld) Monocyte 7.20 % (0-8 %) 0 - 8 % [facility] Neutrophils (Bld) [#/Vol] Abs.Neut.Calculated 2.73 K/UL (Reference Range: not available) Performed at [address] [address] [facility] Neutrophils (Bld) [#/Vol] Abs Neut 2.73 K/UL (1.8-7.7 K/UL) 1.8 - 7.7 K/UL [facility] Neutrophils.immature/ 100 WBC (Bld) Immature Neut % 0.20 % (0.0-1.0 %) 0.0 - 1.0 % [facility] Nucleated RBC/100 WBC (Bld) [Ratio] NRBCs 0 /100 WBC (0 /100 WBC) Pick a Student Platelet mean volume (Bld) [Entitic vol] MPV 11.0 CU (7.0-12.6 CU) 7.0 - 12.6 CU Pick a Student Platelets (Bld) [#/Vol] PLT 157 K/UL (150-450 K/UL) 150 - 450 K/UL Pick a Student RBC (Bld) [#/Vol] RBC 5.11 M/UL (4.5-5 .5 M/UL) 4.5 - 5.5 M/UL [facility] Segmented neutrophils/100 WBC (Bld) Granulocyte 68.00 % (50-70 %) 50 - 70 % [facility] WBC (Bld) [#/Vol] WBC 4.0 K/UL L (4.5- 11.0 K/UL) Low 4.5 - 11.0 K/UL Pick a Student No Panel Informationon 05-16 HS Troponin T Delta 0 (0-4 ) Performed at [address] [address] 0 [phone] 4 [facility] XR Chest Portable (1view) (Reference Range: not available) *FINAL Date of Service: 05/16/2021 14:01 Adm #: [id number] Reading Dr:ELVIRA MOORE Signoff Dr: ELVIRA MOORE PROCEDURE: CHEST PORTABLE - WXR [id number] REASON FOR EXAM: chest pressure / hypertension RESULT: CHEST PORTABLE: Completion Time 05/16/2021 2:01 PM CLINICAL HISTORY: 50-year-old man with hypertension, chest pressure. COMPARISON: Chest radiograph 05/06/2021 and 04/10/2021. TECHNIQUE: AP chest FINDINGS: Cardiac size is indeterminate due to the AP projection. As before, the thoracic aorta is tortuous in appearance. No new focal consolidation, pleural effusion, or visible pneumothorax. IMPRESSION: No new focal consolidation, pleural effusion, or visible pneumothorax. [id number] This report has been produced using speech recognition. Original Interpreting Physician: ELVIRA MOORE MD Original Transcribed by/Date: PSCB May 16 2021 2:30P Original Electronically Signed by/Date: ELVIRA MOORE MD May 16 2021 2:30P Addendum Interpreting Physician: Addendum Transcribed by/Date: NO ADDENDUM Addendum Electronically Signed by/Date: [facility] HS Troponin T Delta No previous result Performed at [address] [address] (0-4 ) 0 - 4 [facility] Laboratory - Microbiology an d Antimicrobial susceptibilityon 05-15-2021 FLUAV RNA TATI+probe Ql (Nph) FLU A by PCR NEGATIVE (Reference Range: not available) [facility] FLUBV RNA TATI+probe Ql (Nph) FLU B by PCR NEGATIVE (Reference Range: not available) [facility] SARS-CoV-2 (COVID-19) RNA TATI+probe Ql (Unsp spec) SARS-CoV-2 by PCR NEGATIVE (NEG ) [facility] Office Visit ([facility] - Osteopat hic Manipulative Treatment)on 05-11-2021 Follow-up visit Diagnoses/Problems Assessed Chronic bilateral low back pain without sciatica (724.2,338.29) (M54.5,G89.29) Segmental and somatic dysfunction of lumbar region (739.3) (M99.03) History of Present Illness 50 Year old Male New Patients: neck and mid- back pain PCP- Viral Silva S Patient complains of neck and mid- back pain here for an alignment by an osteopathic physician wants to be sure things are in line and would like some exercises to help No Pain medications Sleep is not impacted NO physical therapy NO massage therapy NO acupuncture NO Chiropractor NO Injections x-rays or mri - April of 2021 He drinks a [place] 45 malt liquor daily Physical exam No acute distress Ambulating without assistance No conversational dyspnea Able to get in and out of the chair without assistance There is a kyphosis with a internal rotation of the shoulder bilaterally Shoulder abduction is limited to 130 degrees flexion and abduction because of the tightness in both of the shoulders Limited spinal extension CONCLUSION: Chronic spinal pain with no history or physical exam clearly indicative of a pathological issue but more with posture issue presents for consultation with the Osteopathic sports rehabilitation clinic at the [facility] I noticed muscle imbalances on my examination. Based upon my evaluation today, this patient is a candidate for Osteopathic Manipulation with the initial goal to help improved muscles function and joint motion I discussed the role of osteopathic rehabilitation approach. This approach is not about getting rid of pain. Rather, it is finding where there are muscular joint and soft tissue imbalances and using osteopathic manipulative treatments trying to put those areas back into better movement or alignment. The consequence of these dysfunctional movements of the body results in some group of muscles being overworked leading to fatigue and discomfort and pain while other muscles are being underworked. This also will then impact joints and joint tissues that have nerve receptors which can also contribute to the pain and discomfort. Since the body wants to be moving at its most efficient manner, osteopathic manipulation, by restoring these dysfunctional movements of the muscle skeletal system into better alignment, can finally allow the body to actually utilize the underworked muscles more and to decrease the overworking of the overuse muscles which results in nominal and less fatigue in the muscles less stress at the joint level. Also furthering reduction of pain and discomfort and improving muscular endurance [email or web address]: prescription for exercise rehabilitation provided - specifically: Doorframe mobility sequence I provided the Wake up your butt exercise sequence designed to stretch and mobilize the tight flexors and strengthen the weak extensors Follow-up in 4 to 6 weeks Patient presents for Osteopathic exam and treatment. Left leg short right arm short right scapular restriction left quadratus lumborum tender point thoracolumbar junction rotation to the right lumbosacral rotation to the left cervical thoracic rotation to the right with T1 rotated to the right C3 rotation to the left OA side bent right rotated left left scapular restriction Somatic dysfunction: Occipital, cervical, upper extremity ribs thoracic, lumbar, sacral pelvis, lower extremity, abdomen Osteopathic manipulative treatment was used including muscle energy, myofascial release. soft tissue, joint mobilization patient tolerated procedure well After treatment leg lengths are equal arm lengths were equal range of motion of the shoulder was greater. Pre-Treatment Pain Level: 12/31. Active Problems Problems Anemia (285.9) (D64.9) Ascending aortic aneurysm (441.2) (I71.2) Bipolar 2 disorder (296.89) (F31.81) Chest pain (786.50) (R07.9) Constipation (564.00) (K59.00) COVID-19 (079.89) (U07.1) Esophageal spasm (530.5) (K22.4) Essential hypertension (401.9) (I10) ETOH abuse (305.00) (F10.10) GERD (gastroesophageal reflux disease) (530.81) (K21.9) Palpitations (785.1) (R00.2) Pancytopenia (284.19) (D61.818) Renal artery stenosis (440.1) (I70.1) Screening for colorectal cancer (V76.51,V76.41) (Z12.11,Z12.12) Social History Problems Current smoker (305.1) (F17.200) ETOH abuse (305.00) (F10.10) Regular alcohol consumption (V69.8) (Z78.9) Allergies Medication Erythromycin TABS Adverse Reaction; Gatrointestinal upset; Updated By: Meagan Baugh; 02/22/2021 3:30:50 PM polyethylene glycol 3350 Gatrointestinal upset; Recorded By: Antonia Cuenca; 02/16/2021 10:12:41 AM Aspirin TABS Recorded By: Antonia Cuenca; 03/17/2021 3:12:47 PM Current Meds Medication NameInstruction cloNIDine HCl - 0.1 MG Oral TabletTAKE 1 TABLET BY MOUTH DAILY - May take 1 extra tablet for BP above 140/90. Lidocaine Viscous HCl - 2 % Mouth/Throat Solutiontake one teaspoon and swish and spit four times a da (more content not included)... Normal Touchworks CBC AND DIFFERENTIALon 05-08 % AUTOMATED IMMATURE GRAN 0.2 % Normal 0.0 - 0.9 [facility] Comment on above: Result Comment: Kath ture Granulocyte Count (IG) includes promyelocytes, myelocytes and metamyelocytes but does not include bands. Percent differential counts (%) should be interpreted in the context of the absolute cell counts (cells/L). Performed By: #### C BCDF #### [address] [place], [place] [id number] Basophils (Bld) [#/Vol] 0.01 10*3/uL Normal 0.00 - 0.10 [facility] Comment on above: Performed By: #### C BCDF #### [address] [place], [place] [id number] Basophils/100 WBC (Bld) 0.2 % Normal 0.0 - 2.0 [facility] Comment on above: Performed By: #### C BCDF #### [address], [place] [id number] Eosinophils (Bld) [#/Vol] 0.11 10*3/uL Normal 0.00 - 0.70 [facility] Comment on above: Performed By: #### C BCDF #### [address] [place], [place] [id number] Eosinophils/100 WBC (Bld) 2.4 % Normal 0.0 - 6.0 [facility] Comment on above: Performed By: #### C BCDF #### [address], [place] [id number] Erythrocyte distribution width (RBC) [Ratio] 13.0 % Normal 11.5 - 14.5 [facility] Comment on above: Performed By: #### C BCDF #### [address] [place], [place] [id number] Hematocrit (Bld) [Volume fraction] 38.3 % Low 41.0 - 52.0 [facility] Comment on above: Performed By: #### C BCDF #### [address] [place], [place] [id number] Hemoglobin (Bld) [Mass/Vol] 12.6 g/dL Low 13.5 - 17.5 [facility] Comment on above: Performed By: #### C BCDF #### [address], [place] [id number] Lymphocytes (Bld) [#/Vol] 0.94 10*3/uL Low 1.20 - 4.80 [facility] Comment on above: Performed By: #### C BCDF #### [facility] [address] [facility] [place], [place] [id number] Lymphocytes/100 WBC (Bld) 20.3 % Normal 13.0 - 44.0 [facility] Comment on above: Performed By: #### C BCDF #### [facility] [address] [facility] [place], [place] [phone] MCHC (RBC) [Mass/Vol] 32.9 g/dL Normal 32.0 - 36.0 [facility] Comment on above: Performed By: #### C BCDF #### [address], [place] [phone] MCV (RBC) [Entitic vol] 84 fL Normal 80 - 100 [facility] Comment on above: Performed By: #### C BCDF #### [address], [place] [id number] Monocytes (Bld) [#/Vol] 0.41 10*3/uL Normal 0.10 - 1.00 [facility] Comment on above: Performed By: #### C BCDF #### [address], [place] [id number] Monocytes/100 WBC (Bld) 8.8 % Normal 2.0 - 10.0 [facility] Comment on above: Performed By: #### C BCDF #### [facility] [address] [facility] [place], [place] [id number] Neutrophils (Bld) [#/Vol] 3.16 10*3/uL Normal 1.20 - 7.70 [facility] Comment on above: Performed By: #### C BCDF #### [facility] [address] [facility] [place], [place] [phone] Neutrophils/100 WBC (Bld) 68.1 % Normal 40.0 - 80.0 [facility] Comment on above: Performed By: #### C BCDF #### [facility] [address] [facility] [place], [place] [phone] Platelets (Bld) [#/Vol] 159 10*3/uL Normal 150 - 450 [facility] Comment on above: Performed By: #### C BCDF #### [facility] [address] [facility] [place], [place] [id number] RBC 4.56 x10E12/L Normal 4.50 - 5.90 [facility] Comment on above: Performed By: #### C BCDF #### [facility] [address] [facility] [place], [place] [phone] WBC (Bld) [#/Vol] 4.6 10*3/uL Normal 4.4 - 11.3 [facility] Comment on above: Performed By: #### C BCDF #### [facility] [address] [facility] [place], [place] [phone] COMPREHENSIVE PANELon 2020 Albumin [Mass/Vol] 4.2 g/dL Normal 3.4 - 5.0 [facility] Comment on above: Performed By: #### C MP ####[facility] [facility] [place], [place] [phone] ALP [Catalytic activity/Vol] 57 U/L Normal 33 - 120 [facility] Comment on above: Performed By: #### C MP ####[facility] [facility] [place], [place] [phone] ALT [Catalytic activity/Vol] 21 U/L Normal 10 - 52 [facility] Comment on above: Result Comment: Yanni ents treated with Sulfasalazine may generate falsely decreased results for ALT. Performed By: #### C MP ####[facility] [facility] [place], [place] [phone] Anion gap [Moles/Vol] 12 mmol/L Normal 10 - 20 [facility] Comment on above: Performed By: #### C MP ####[facility] [facility] [place], [place] [phone] AST [Catalytic activity/Vol] 19 U/L Normal 9 - 39 [facility] Comment on above: Performed By: #### C MP ####[facility] [facility], [place] [phone] Bilirubin [Mass/Vol] 0.4 mg/dL Normal 0.0 - 1.[address] [facility] Comment on above: Performed By: #### C MP ####[facility] [facility] [place], [place] [phone] Calcium [Mass/Vol] 9.3 mg/dL Normal 8.6 - 10.3 [facility] Comment on above: Performed By: #### C MP ####[facility] [facility] [place], [place] [phone] Chloride [Moles/Vol] 103 mmol/L Normal 98 - [address] [facility] Comment on above: Performed By: #### C MP ####[facility] [facility] [place], [place] [phone] Creatinine [Mass/Vol] 1.02 mg/dL Normal 0.50 - 1.30 [facility] Comment on above: Performed By: #### C MP ####[facility] [facility] [place], [place] [id number] GFR- AM. >60 Normal >60 [facility] Comment on above: Result Comment: CALC ULATIONS OF ESTIMATED GFR ARE PERFORMED USING THE MDRD STUDY EQUATION FOR THE IDMS-TRACEABLE CREATININE METHODS. CLIN CHEM 2007;53:766-72 Performed By: #### C MP ####[facility] [facility] [place], [place] [id number] GFR-NON AM. >60 Normal >60 [facility] Comment on above: Performed By: #### C MP ####[facility] [facility] [place], [place] [phone] Glucose [Mass/Vol] 82 mg/dL Normal 74 - 99 [facility] Comment on above: Performed By: #### C MP ####[facility] [facility] [place], [place] [phone] HCO3 (Bld) [Moles/Vol] 27 mmol/L Normal 21 - 32 [facility] Comment on above: Performed By: #### C MP ####[facility] [facility] [place] [phone] Potassium [Moles/Vol] 3.8 mmol/L Normal 3.5 - 5.3 [facility] Comment on above: Performed By: #### C MP ####[facility] [facility], [place] [phone] Protein [Mass/Vol] 6.9 g/dL Normal 6.4 - 8.2 [facility] Comment on above: Performed By: #### C MP ####[facility] [facility] [place], [place] [id number] Sodium [Moles/Vol] 138 mmol/L Normal 136 - 145 [facility] Comment on above: Performed By: #### C MP ####[facility] [facility] [place], [place] [phone] Urea nitrogen [Mass/Vol] 18 mg/dL Normal 6 - 23 [facility] Comment on above: Performed By: #### C MP ####[facility] [facility] [place], [place] [phone] CT Angio Abdomen Pelvis with Contrast including non cont Image with Post Procedureon 05-08-2021 CT Abdomen and Pelvis and CT angiogram Abdominal aorta W contrast IV Normal FLORINDA-Ayush [employer] [facility]-Yareli Alvarado MD Practice Work Phone: CT Angio Cheston 05-08-2021 CTA Chest vessels Normal MP-Ny or [employer] [facility]-Yareli Alvarado MD Practice Work Phone: CTA ABDOMEN PELVIS WITH CONT INCL NON CONT IMAGE W POST PROCon 05-08-2021 CTA ABDOMEN PELVIS WITH CONT INCL NON CONT IMAGE W POST PROC STUDY: CT Angiogram of the Chest, Abdomen, and Pelvis; 05/08/2021 7:56 PM. INDICATION: Right flank pain. History of thoracic aortic aneurysm. COMPARISON: CTA CAP 04/16/2021. ACCESSION NUMBER(S): [id number], [id number] ORDERING CLINICIAN: ARIE NGUYEN MD TECHNIQUE: Helical CT is performed from the lung apices through the symphysis pubis after bolus administration of 90 mL of Omnipaque 350. Images are reviewed and processed at a workstation according to the CT angiogram protocol with 3-D and/or MIP post processing imaging generated. Automated mA/kV exposure control was utilized and patient examination was performed in strict accordance with principles of ALARA. FINDINGS: VASCULAR: Pulmonary arteries: Pulmonary arteries are adequately opacified without acute or chronic filling defects. Thoracic aorta: Mild aneurysmal dilatation of the ascending thoracic aorta is unchanged with a maximum diameter remaining approximately 4.4 cm. There is no evidence of dissection. The branches of the aortic arch are all widely patent and there is no aneurysm in the descending aorta.. Mesenteric: The celiac, SMA, and KESHAWN demonstrate no significant stenosis. Right renal: Single vessel demonstrates no significant stenosis. Left renal: Again seen is significant stenosis in the origin of the left renal artery but this is not changed from the prior study.. Abdominal aorta: The abdominal aorta is not aneurysmal and demonstrates no significant occlusive disease. Iliacs: The common, external, and internal iliac vessels demonstrate no aneurysmal disease or significant stenosis. CHEST: The heart is normal in size without pericardial effusion. Thoracic lymph nodes are not enlarged. There is no pleural effusion, pleural thickening, or pneumothorax. The airways are patent. Lungs are clear without consolidation, interstitial disease, or suspicious nodules. ABDOMEN: LIVER: No hepatomegaly. Smooth surface contour. Normal attenuation. BILE DUCTS: No intrahepatic or extrahepatic biliary ductal dilatation. GALLBLADDER: The gallbladder is unremarkable. PANCREAS: No masses or ductal dilatation. SPLEEN: No splenomegaly or focal splenic lesion. ADRENAL GLANDS: No thickening or nodules. KIDNEYS AND URETERS: Kidneys are normal in size and location. No renal or ureteral calculi. Again seen are renal cysts bilaterally. PELVIS: BLADDER: No abnormalities identified. REPRODUCTIVE ORGANS: No abnormalities identified. BOWEL: No abnormalities identified. The appendix remains unremarkable. PERITONEUM/RETROPERITONE UM/LYMPH NODES: No free fluid. No pneumoperitoneum. No lymphadenopathy. ABDOMINAL WALL: No abnormalities identified. SOFT TISSUES: No abnormalities identified. BONES: No acute fracture or aggressive osseous lesion. IMPRESSION: In the chest mild aneurysmal dilatation of the ascending aorta is unchanged from the prior exam. Maximum diameter remains about 4.4 cm. There is no evidence of pulmonary embolus. Small linear scarring or discoid atelectasis is seen in the medial right lung base but the lungs otherwise are clear with no effusion or pneumothorax.. The abdomen and pelvis significant stenosis remains in the origin of the left renal artery but it is not changed from the prior exam. The abdominal aorta does not show any stenosis, aneurysm or dissection and all the other branches of the abdominal aorta are remain widely patent. Similar to the prior study there is some mild dilatation of the midportion of the right ureter but there is no hydronephrosis and no ureteral calculi are seen. Signed by Sahil Parks MD Electronically signed by: SAHIL PARKS MD [facility] Complete Blood Count + Diffe ubaldo 05-08-2021 Basophils/100 WBC (Bld) 0.2 % 0.0 - 2.0 [facility] Work Phone: Erythrocyte distribution width (RBC) [Ratio] 13.0 % See Below [facility] val[facility]uel[facility] Practice Work Phone: [phone] Comment on above: Reference Range: 11. 5 - 14.5 Hematocrit (Bld) [Volume fraction] 38.3 % below low threshold See Below [facility] bianca [facility] Practice Work Phone: Comment on above: Reference Range: 41. 0 - 52.0 Hemoglobin (Bld) [Mass/Vol] 12.6 g/dL below low threshold See Below [facility] Practice Work Phone: Comment on above: Reference Range: 13. 5 - 17.5 Lymphocytes/100 WBC (Bld) 20.3 % See Below [facility] bianca [facility] Practice Work Phone: Comment on above: Reference Range: 13. 0 - 44.0 MCHC (RBC) [Mass/Vol] 32.9 g/dL See Below [facility] Practice Work Phone: Comment on above: Reference Range: 32. 0 - 36.0 MCV (RBC) [Entitic vol] 84 fL 80 - 100 [facility] Center[facility] bianca [facility] Practice Work Phone: [phone] Monocytes/100 WBC (Bld) 8.8 % 2.0 - 10.0 -Ayush [facility] [address] Practice Work Phone: [phone] Neutrophils/100 WBC (Bld) 68.1 % See Below [facility] Practice Work Phone: [phone] Comment on above: Reference Range: 40. 0 - 80.0 Platelets (Bld) [#/Vol] 159 10*3/uL 150 - 450 -Ayush [facility] Practice Work Phone: [phone] RBC (Bld) [#/Vol] 4.56 {x10E12/L} See Below [facility] Practice Work Phone: [phone] Comment on above: Reference Range: 4.5 0 - 5.90 WBC (Bld) [#/Vol] 4.6 10*3/uL 4.4 - 11.3 [facility] [address] Practice Work Phone: [phone] Complete Blood Count + Differential 0.01 {x10E9/L} See Below [facility] [address] Practice Work Phone: [phone] Comment on above: Reference Range: 0.0 0 - 0.10 Complete Blood Count + Differential 0.11 {x10E9/L} See Below [facility] [address] Practice Work Phone: [phone] Comment on above: Reference Range: 0.0 0 - 0.70 Complete Blood Count + Differential 0.41 {x10E9/L} See Below [facility] Practice Work Phone: [phone] Comment on above: Reference Range: 0.1 0 - 1.00 Complete Blood Count + Differential 0.94 {x10E9/L} below low threshold See Below [facility] [address] Practice Work Phone: [phone] Comment on above: Reference Range: 1.2 0 - 4.80 Complete Blood Count + Differential 3.16 {x10E9/L} See Below [address] Practice Work Phone: [phone] Comment on above: Reference Range: 1.2 0 - 7.70 Complete Blood Count + Differential 2.4 % 0.0 - 6.[address] Practice Work Phone: [phone] Complete Blood Count + Differential 0.2 % 0.0 - 0.[address] Practice Work Phone: [phone] Comment on above: Immature Granulocyte Count (IG) includes promyelocytes, myelocytes and metamyelocytes but does not include bands. Percent differential counts (%) should be interpreted in the context of the absolute cell counts (cells/L). Laboratory - Chemistry and C hemistry - challengeon 05-08-2021 Albumin BCP dye [Mass/Vol] 4.2 g/dL 3.4 - 5.[address] Practice Work Phone: [phone] ALP [Catalytic activity/Vol] 57 U/L 33 - [address] Practice Work Phone: [phone] ALT With P-5'-P [Catalytic activity/Vol] 21 U/L 10 - [address] Practice Work Phone: [phone] Comment on above: Patients treated wit h Sulfasalazine may generate falsely decreased results for ALT. Anion gap [Moles/Vol] 12 mmol/L 10 - [address] Practice Work Phone: [phone] AST With P-5'-P [Catalytic activity/Vol] 19 U/L 9 - [address] Practice Work Phone: [phone] Bilirubin [Mass/Vol] 0.4 mg/dL 0.0 - 1.2 - onno[address] Practice Work Phone: [phone] Calcium [Mass/Vol] 9.3 mg/dL 8.6 - 10.3 MP-Con judy [address] Practice Work Phone: Chloride [Moles/Vol] 103 mmol/L 98 - 107 CLAUS diehl [address] Practice Work Phone: CO2 [Moles/Vol] 27 mmol/L 21 - 32 FLORINDA-Ayush [address] Practice Work Phone: Creatinine [Mass/Vol] 1.02 mg/dL See Below - Ayush [address] Practice Work Phone: Comment on above: Reference Range: 0.5 0 - 1.30 Glucose [Mass/Vol] 82 mg/dL 74 - 99 MP-Con judy [address] Practice Work Phone: Potassium [Moles/Vol] 3.8 mmol/L 3.5 - 5.3 FLORINDA- Ayush [address] Practice Work Phone: Protein [Mass/Vol] 6.9 g/dL 6.4 - 8.2 MP-Con judy [address] Practice Work Phone: Sodium [Moles/Vol] 138 mmol/L 136 - 145 MP-Con judy [address] Practice Work Phone: Urea nitrogen [Mass/Vol] 18 mg/dL 6 - 23 -Ayush [address] Practice Work Phone: No Panel Informationon 05-08 >60 >60 -Ayush [address] Practice Work Phone: Comment on above: CALCULATIONS OF NIKOLE MATED GFR ARE PERFORMED USING THE MDRD STUDY EQUATION FOR THE IDMS-TRACEABLE CREATININE METHODS. CLIN CHEM 2007;53:766-72 Provider Note - ED v3on 04-23 Provider Note - ED v3 Provider Note: Chart Review: ED NOTES ED NOTES: HISTORY OF PRESENT ILLNESS: 50 year-old male with a history of thoracic aortic aneurysm, renal artery stenosis, hypertension, hyperlipidemia, bipolar, PTSD, esophageal dysphagia (per patient I have a blockage), and frequent ED visits, presents with right flank pain. Pain started suddenly today, hot sensation, R flank radiating to RLQ, associated with mild dizziness. He denies any hematuria, dysuria, fever, chills, change in bowel habits. He has had intermittent chest pain over the past few days but none today. He is concerned that pain may be related to his thoracic aortic aneurysm or his renal artery stenosis, although on review of EMR his ELIANA is actually on the left. Patient is circumferential in his history, asking inappropriate questions about my race/education and inserting himself into conversation with patient across the [place]. He repeatedly asks me to emergently call his vascular surgeon to discuss his case. ROS: 10-point review of systems was performed and is otherwise negative except as noted in HPI. PMH/PSH: Noncontributory except per HPI FH: Reviewed and noncontributory SOCIAL: Denies tobacco. Denies ETOH. Denies illicit drugs. ALLERGIES: Reviewed/documented below. MEDS: Reviewed/documented below. VS: Reviewed in nursing triage note, EMR flow sheets, and at patient's bedside. HISTORY OF PRESENTING ILLNESS HOSEA is a 50 year old Male and was seen by me at 08-May-2021 17:22 for a chief complaint of flank pain . Triage Information: Most recent Vital Sign Value Date Temp (F): 98.5 05-08-2021 17:18 Temp (C): 36.9 05-08-2021 17:18 Heart Rate (beats/min): 72 05-08-2021 17:18 Respirations (breaths/min): 18 05-08-2021 17:18 SpO2 (%): 100 05-08-2021 17:18 BP Systolic (mm Hg): 141 05-08-2021 17:18 BP Diastolic (mm Hg): 97 05-08-2021 17:18 PAST MEDICAL HISTORY ALLERGIES/INTOLERANCES: Allergy Allergen: Erythromycin Base Type: Drug Reaction: Unknown Allergen: caffine Type: Food Reaction: Other Allergen: Cipro Type: Drug Reaction: Unknown Intolerance Allergen: polyethylene glycol 3350 Type: Drug Reaction: GI Upset HEALTH HISTORY: Family History Name:No family history of cancer Code:Z78.9 Name:No family history of coronary artery disease Code:Z78.9 Medical History Name:Chest pain Code:R07.9 Name:Renal artery stenosis Code:I70.1 Name:Pulmonary embolism Code:I26.99 Name:History of COVID-19 Code:Z86.16 Name:Ascending aortic aneurysm Code:I71.2 Name:Bipolar disorder Code:F31.9 Name:Palpitations Code:R00.2 Social History Name:Homeless Code:Z59.0 Name:Does not use illicit drugs Code:Z78.9 Name:Consumes alcohol occasionally Code:Z78.9 Name:Former smoker Code:Z87.891 OUTPATIENT MEDICATIONS: Home Medications Review Status for Reconciliation: N/A Med Status: Patient Currently Takes Medications Drug Name: losartan 50 mg oral tablet Instructions: 1 tab(s) orally once a day Drug Name: metoprolol succinate 25 mg oral tablet, extended release Instructions: 1 tab(s) orally once a day Drug Name: pantoprazole 40 mg oral delayed release tablet Instructions: 1 tab(s) orally once a day SIGNIFICANT EVENTS: Past Medical History Description:Hypertension (HTN) Description:Abdominal Aortic Aneurysm (AAA) Description:Heart murmur Description:Arrythmia Additional Notes: inverted T waves Description:RENAL STENOSIS Description:intestinal tumor PHYSICAL EXAM CONSTITUTIONAL: Well appearing, well nourished, awake, alert, and in no apparent distress. HENMT: Airway patent. Nasal mucosa clear. Moist mucous membranes. No oral lesions. No oropharyngeal exudates and uvula is midline. EYES: Clear bilaterally, pupils equal, round and reactive to light. CARDIOVASCULAR: Normal rate, regular rhythm. Heart sounds S1, S2. No murmurs, rubs or gallops. RESPIRATORY: No increased work of breathing. Breath sounds clear and equal bilaterally. GASTROINTESTINAL: Abdomen soft, non-distended. No rebound or guarding. Normal bowel sounds. No masses palpable. GENITOURINARY: No CVA tenderness. MUSCULOSKELETAL: Moves all extremities equally, no muscle or joint tenderness. No edema. NEUROLOGICAL: Alert and oriented, no focal deficits, no motor or sensory deficits. SKIN: Skin normal color, warm, dry and intact. No evidence of trauma. PSYCHIATRIC: Circumferential, slightly inappropriate HEME/LYMPH: No adenopathy or splenomegaly. No cervical, supraclavicular or inguinal lymphadenopathy. CRITICAL CARE RESULTS: Recent Lab Results: I have reviewed these laboratory results: Complete Blood Count + Differential 08-May-2021 18:22:00 ResultValue White Blood Cell Count 4.6 Red Blood Cell Count 4.56 HGB 12.6 L HCT 38.3 L MCV 84 MCHC 32.9 PLT 159 RDW-CV 13.0 Neutrophil % 68.1 Immature Granulocyte (more content not included)... Normal [facility] Risk Screen - Adult Emergenc yon 05-08-2021 Risk Screen - Adult Emergency Preferred Language: Preferred Language: Preferred Language for Discussing Health Care (patient/designee)Fran villalta Advanced Directives: Advance Directive/DNRno Family Violence Adult: Abuse Screen: Are you or have you been threatened or abused physically, emotionally, or sexually by anyoneno Learning Assessment (Patient): Learning Assessment (Patient): Patient is Able to be Assessed for Learningyes Factors Influencing Readiness to Learnacuteness of illness Factors that Impact Ability to Learnnone Devices/Methods Used to Communicatenone Learning Preferencesindividual instruction; verbal instruction Cultural Considerationsnone Developmental Considerationsnone Zoroastrian Considerationsnone Learning Assessment (Other Learner): Learning Assessment (Other Learner): Other learner availableno Pressure Injury/TB/Substance: Pressure Injury: Pressure Injury Present on Admissionno Do you have a coughno Smoking Statusnever smoker Admission Risk Screen: Significant IndicatorsComplete CAGE: CAGE: Is this an injured patient at a Trauma Center ([facility]/[place] /[place]): no Electronic Signatures: Rae Duval (BROOKLYNN) (Signed 08-May-2021 20:10) Authored: Preferred Language, Advanced Directives, Family Violence Adult, Learning Assessment (Patient), Learning Assessment (Other Learner), Pressure Injury/TB/Substance, Pressure Injury, CAGE Last Updated: 08-May-2021 20:10 by Rae Duval (BROOKLYNN) Normal [facility] TH CT ANGIO CHESTon 05-08-20 CT ANGIO CHEST STUDY: CT Angiogram of the Chest, Abdomen, and Pelvis; 05/08/2021 7:56 PM. INDICATION: Right flank pain. History of thoracic aortic aneurysm. COMPARISON: CTA CAP 04/16/2021. ACCESSION NUMBER(S): [id number], [id number] ORDERING CLINICIAN: ARIE NGUYEN MD TECHNIQUE: Helical CT is performed from the lung apices through the symphysis pubis after bolus administration of 90 mL of Omnipaque 350. Images are reviewed and processed at a workstation according to the CT angiogram protocol with 3-D and/or MIP post processing imaging generated. Automated mA/kV exposure control was utilized and patient examination was performed in strict accordance with principles of ALARA. FINDINGS: VASCULAR: Pulmonary arteries: Pulmonary arteries are adequately opacified without acute or chronic filling defects. Thoracic aorta: Mild aneurysmal dilatation of the ascending thoracic aorta is unchanged with a maximum diameter remaining approximately 4.4 cm. There is no evidence of dissection. The branches of the aortic arch are all widely patent and there is no aneurysm in the descending aorta.. Mesenteric: The celiac, SMA, and KESHAWN demonstrate no significant stenosis. Right renal: Single vessel demonstrates no significant stenosis. Left renal: Again seen is significant stenosis in the origin of the left renal artery but this is not changed from the prior study.. Abdominal aorta: The abdominal aorta is not aneurysmal and demonstrates no significant occlusive disease. Iliacs: The common, external, and internal iliac vessels demonstrate no aneurysmal disease or significant stenosis. CHEST: The heart is normal in size without pericardial effusion. Thoracic lymph nodes are not enlarged. There is no pleural effusion, pleural thickening, or pneumothorax. The airways are patent. Lungs are clear without consolidation, interstitial disease, or suspicious nodules. ABDOMEN: LIVER: No hepatomegaly. Smooth surface contour. Normal attenuation. BILE DUCTS: No intrahepatic or extrahepatic biliary ductal dilatation. GALLBLADDER: The gallbladder is unremarkable. PANCREAS: No masses or ductal dilatation. SPLEEN: No splenomegaly or focal splenic lesion. ADRENAL GLANDS: No thickening or nodules. KIDNEYS AND URETERS: Kidneys are normal in size and location. No renal or ureteral calculi. Again seen are renal cysts bilaterally. PELVIS: BLADDER: No abnormalities identified. REPRODUCTIVE ORGANS: No abnormalities identified. BOWEL: No abnormalities identified. The appendix remains unremarkable. PERITONEUM/RETROPERITONE UM/LYMPH NODES: No free fluid. No pneumoperitoneum. No lymphadenopathy. ABDOMINAL WALL: No abnormalities identified. SOFT TISSUES: No abnormalities identified. BONES: No acute fracture or aggressive osseous lesion. IMPRESSION: In the chest mild aneurysmal dilatation of the ascending aorta is unchanged from the prior exam. Maximum diameter remains about 4.4 cm. There is no evidence of pulmonary embolus. Small linear scarring or discoid atelectasis is seen in the medial right lung base but the lungs otherwise are clear with no effusion or pneumothorax.. The abdomen and pelvis significant stenosis remains in the origin of the left renal artery but it is not changed from the prior exam. The abdominal aorta does not show any stenosis, aneurysm or dissection and all the other branches of the abdominal aorta are remain widely patent. Similar to the prior study there is some mild dilatation of the midportion of the right ureter but there is no hydronephrosis and no ureteral calculi are seen. Signed by Sahil Parks MD Electronically signed by: SAHIL PARKS MD Normal [facility] TROPONIN Ion 05-08-2021 Troponin I.cardiac [Mass/Vol] ng/mL Normal 0.00 - 0.03 [facility] Comment on above: Result Comment: LESS THAN 0.04 NG/ML: NEGATIVE REPEAT TESTING IN THREE TO SIX HOURS IF CLINICALLY INDICATED. 0.04 - 0.5 NG/ML: CONSISTENT WITH POSSIBLE CARDIAC DAMAGE AND POSSIBLE INCREASED CLINICAL RISK. SERIAL MEASUREMENTS MAY HELP ASSESS EXTENT OF MYOCARDIAL DAMAGE. >0.5 NG/ML: CONSISTENT WITH CARDIAC DAMAGE, INCREASED CLINICAL RISK AND MYOCARDIAL INFARCTION. SERIAL MEASUREMENTS MAY HELP ASSESS EXTENT OF MYOCARDIAL DAMAGE. . Note: Troponin I testing is performed using different testing methodology at [facility] than at other [facility]. Direct result comparisons should only be made within the same method. Performed By: #### T ROP2 ####[facility] [place], [place] [id number] Triage - EDon 05-08-2021 Triage - ED Chart Review: ARRIVAL INFORMATION Mode of Arrival: ambulance Agency Name: [place] CHIEF COMPLAINT HOSEA ALVAREZ is a Male patient with a chief complaint of flank pain. Triage Date/Time: 08-May-2021 17:18 WILMAN: 3 Pain Rating (0-10): 8 = Severe Vital Signs: Temperature: 98.5F ( 36.9C) taken temporal Blood Pressure: 141/97 Mean: Heart Rate: 72 Respiratory Rate: 18 Pulse Oximetry: 100% Height: 5 feet 8 inches. 172.7 CM Weight: 209.4 pounds. Calculated 95.0 kg. (stated) Calculated BMI (kg/m2): 31.852 Calculated BSA (m2) 2.13 Lynda Coma Scale: Best Eye Response: (E4) spontaneous Best Motor Response: (M6) obeys commands Best Verbal Response: (V5) oriented [place] Score: 15 Cough lasting greater than 3 weeks: no Patient immunocompromised related to: N/A Allergies: no Patient has homicidal thoughts: no Symptom Notes: . Symptoms Are POSITIVE For: flank pain. Symptoms Are Negative For: anorexia, chills, dysuria, fever, frequency, hematuria, malaise, nausea and urgency. Risk Screens Suicide Risk Screen In the Past Month: Have you wished you were or wished you could go to sleep and not wake up no In the Past Month: Have you had any actual thoughts of killing yourself no In Your Lifetime: Have you ever done anything, started to do anything, or prepared to do anything to end your life no Molina Fall Scale Screening Has the patient fallen before (or is the patient in the ED as a result of a fall) has not had a fall Does the patient have an impaired gait does not have impaired gait Is the patient cognitively impaired not cognitively impaired Interventions: Molina Fall Interventions: LOW INTERVENTIONS: *patient oriented to surroundings and call system, * patient/family falls education completed and documented, *patients fall status communicated during bedside handoff, *whiteboard updated, *mode of toileting discussed with patient, *bed in low position with brakes locked, *call light in reach, * non-skid footwear TRAVEL HISTORY Travel History Coronavirus Screening: no exposure or symptoms Travel Exposure History: NO travel to International locations in the past 30 days PAIN Pain Scale Used: SHANNON Pain Rating (0-10): 8 = Severe Past Medical History: Past Medical History Reviewedyes Electronic Signatures: Jamie Puentes (EMT-P) (Signed 08-May-2021 17:20) Authored: Quick Triage, Risk Screens, Pain, Travel History, Chart Review, Scores, Past Medical History Last Updated: 08-May-2021 17:20 by Jamie Puentes (EMT-P) [facility] Troponin I, Serumon 05-08-20 21 Troponin I.cardiac [Mass/Vol] ng/mL See Below [facility]-Yareli Laurent0 Practice Work Phone: Comment on above: Reference Range: 0.0 0 - 0.03LESS THAN 0.04 NG/ML: NEGATIVEREPEAT TESTING IN THREE TO SIX HOURSIF CLINICALLY INDICATED.0.04 - 0.5 NG/ML: CONSISTENT WITH POSSIBLECARDIAC DAMAGE AND POSSIBLE INCREASEDCLINICAL RISK.SERIAL MEASUREMENTS MAY HELP ASSESS EXTENT OFMYOCARDIAL DAMAGE.>0.5 NG/ML: CONSISTENT WITH CARDIAC DAMAGE,INCREASED CLINICAL RISK AND MYOCARDIALINFARCTION. SERIAL MEASUREMENTS MAY HELPASSESS EXTENT OF MYOCARDIAL DAMAGE..Note: Troponin I testing is performed using different testing methodology at [facility] than at [facility]. Direct result comparisons should only be made within the same method. URINALYSISon 05-08-2021 Appearance (U) CLEAR Normal CLEAR [facility] Comment on above: Performed By: #### U A #### [address], [place] [id number] Bilirubin Ql (U) Negative Normal NEGATIVE [facility] Comment on above: Performed By: #### U A #### [address], [place] [phone] Color (U) STRAW Normal STRAW,YELLOW [facility] Comment on above: Performed By: #### U A #### [address], [place] [id number] Glucose Ql (U) Negative Normal NEGATIVE [facility] Comment on above: Performed By: #### U A #### [address], [place] [id number] Hemoglobin Ql (U) Negative Normal NEGATIVE [facility] Comment on above: Performed By: #### U A #### [address], [place] [id number] Ketones Ql (U) Negative Normal NEGATIVE [facility] Comment on above: Performed By: #### U A #### [address], [place] [id number] Leukocyte esterase Test strip Ql (U) Negative Normal NEGATIVE [facility] Comment on above: Performed By: #### U A #### [address], [place] [id number] Nitrite Ql (U) Negative Normal NEGATIVE [facility] Comment on above: Performed By: #### U A #### [facility] [address] [facility] [place], [place] [id number] pH (U) 6.0 [pH] Normal 5.0 - 8.0 [facility] Comment on above: Performed By: #### U A #### [facility] [address] [facility] [place], [place] [id number] Protein Ql (U) Negative Normal NEGATIVE [facility] Comment on above: Performed By: #### U A #### [facility] [address] [facility] [place], [place] [id number] Specific gravity (U) [Rel density] 1.005 Normal 1.005 - 1.035 [facility] Comment on above: Performed By: #### U A #### [facility] [address] [facility] [place], [place] [phone] Urobilinogen (U) [Mass/Vol] mg/dL Normal 0.0 - 1.9 [facility] Comment on above: Performed By: #### U A #### [facility] [address] [facility] [place], [place] [phone] Urinalysison 05-08-2021 Color (U) STRAW See Below [facility] bianca Alvarado MD Practice Work Phone: [phone] Comment on above: Reference Range: STR AW,YELLOW Glucose Ql (U) Negative NEGATIVE [facility] Work Phone: [phone] Ketones Ql (U) Negative NEGATIVE [facility] bianca Alvarado MD Practice Work Phone: [phone] Leukocyte esterase Test strip Ql (U) Negative NEGATIVE [facility] bianca Alvarado MD Practice Work Phone: [phone] pH (U) 6.0 [pH] 5.0 - 8.0 [facility] Work Phone: [phone] Protein (U) [Mass/Vol] Negative NEGATIVE [address] Practice Work Phone: RBC (U) [#/Vol] Negative NEGATIVE [address] Practice Work Phone: Specific gravity (U) [Rel density] 1.005 1 See Below [address] Practice Work Phone: Comment on above: Reference Range: 1.0 05 - 1.035 Urinalysis Negative NEGATIVE [address] Practice Work Phone: Urinalysis <2.0 0.0 - 1.[address] Practice Work Phone: Urinalysis CLEAR CLEAR [address] Practice Work Phone: Laboratory - Chemistry and C hemistry - challengeon 05-07-2021 Anion gap [Moles/Vol] Anion Gap 9 MMOL/L (0-19 MMOL/L) 0 - 19 MMOL/L [facility] Calcium [Mass/Vol] Calcium 9.0 MG/DL (8.5-10.4 MG/DL) 8.5 - 10.4 MG/DL S Chloride [Moles/Vol] Chloride 102 MMOL/L (97-107 MMOL/L) 97 - 107 MMOL/L S CO2 [Moles/Vol] Carbon Dioxide 28 MM OL/L (24-31 MMOL/L) 24 - 31 MMOL/L [facility] Creatinine [Mass/Vol] Creatinine R 0.9 M G/DL (0.4-1.6 MG/DL) 0.4 - 1.6 MG/DL [facility] GFR/1.73 sq M.predicted MDRD (S/P/Bld) [Vol rate/Area] EGFR 95 mL/min/1.73 m2 (Reference Range: not available) GFR ml/min/1.73m2 Stage ----- 90 1 60-89 2 30-59 3 15-29 4 <15 5 For -Americans, multiply EGFR result by 1.210 Calculation not validated for patients under 18 years of age. Performed at [facility] [address] [place] [id number] [facility] Glucose [Mass/Vol] Glucose 103 MG/DL H (65-99 MG/DL) High 65 - 99 MG/DL [facility] Magnesium [Mass/Vol] Magnesium 2.0 MG/DL (1.6-3.1 MG/DL) Performed at [facility] [address] [place] [id number] 1.6 - 3.1 MG/DL [facility] Natriuretic peptide.B prohormone N-Terminal [Mass/Vol] Pro BNP 38 PG/ML (0-138 PG/ML) Reference ranges are based on clinical submission data. These ranges represent the 95th percentile of normal cut-off points. As NT pro-BNP values approach 1000 pg/ml, clinical symptoms are more likely associated with CHF. Performed at [facility] [address] [place] [id number] 0 - 138 PG/ML [facility] Potassium [Moles/Vol] Potassium R 4.0 MM OL/L (3.4-5.1 MMOL/L) 3.4 - 5.1 MMOL/L [facility] Sodium [Moles/Vol] Sodium 138 MMOL/L (133-145 MMOL/L) 133 - 145 MMOL/L [facility] Troponin T.cardiac [Mass/Vol] HS Troponin T,Gen 5 11 NG/L (-<15 NG/L) Sex Specific Reference Range: Male (0-22), Female (0-14) Change(Delta) >=5 is significant Troponin Baseline and Serial elevation for significant change(delta)should be interpreted in conjunction with clinical presentation, history, signs and symptoms, ECG and biomarker concentrations. Troponin elevation can be seen in several other non-infarct conditions. Chronic troponin elevations can be detected in clinically stable patients with heart failure, cardiomyopathy, renal failure, diabetes, etc. Elevated troponin can also occur in myocarditis, heart contusion, PE, drug induced cardiotoxicity, etc. Samples should NOT be taken from patients receiving high dose biotin (> 5mg) doses until 8 hours following last biotin administration. [employer] Urea nitrogen [Mass/Vol] BUN 12 MG/DL (8-25 MG/DL) 8 - 25 MG/DL [employer] Urea nitrogen/Creatinine [Mass ratio] BUN Creatinine Ratio 13.3 RATIO (8-21 RATIO) 8 - 21 RATIO [employer] Laboratory - Hematology and Cell countson 05-07-2021 Basophils (Bld) [#/Vol] Abs Baso 0.03 K/UL (0.00-0.22 K/UL) 0.00 - 0.22 K/UL [employer] Basophils/100 WBC (Bld) Basophil 0.90 % (0-1 %) 0 - 1 % [facility] Differential cell count method Nom (Bld) Diff Type AUTO DIFF (Reference Range: not available) [facility] Eosinophils (Bld) [#/Vol] Abs Eos 0.03 K/UL (0-0.45 K/UL) 0 - 0.45 K/UL [facility] Eosinophils/100 WBC (Bld) Eosinophil 0.90 % (0-3 %) 0 - 3 % [facility] Erythrocyte distribution width (RBC) [Entitic vol] RDW SD 41.1 FL (37.0-54.0 FL) 37.0 - 54.0 FL [facility] Erythrocyte distribution width (RBC) [Ratio] RDW CV 12.9 % (11.7-15.0 %) 11.7 - 15.0 % [employer] Hematocrit (Bld) [Volume fraction] HCT 41.3 % (41-50 %) 41 - 50 % [employer] Hemoglobin (Bld) [Mass/Vol] HGB 13.2 GM/DL L (13.5-16.5 GM/DL) Low 13.5 - 16.5 GM/DL S Immature granulocytes (Bld) [#/Vol] Abs Imm Neut 0.01 K/UL (0.0-0.1 K/UL) 0.0 - 0.1 K/UL S Lymphocytes (Bld) [#/Vol] Abs Lymph 0.72 K/UL L (1.2-3.2 K/UL) Low 1.2 - 3.2 K/UL S Lymphocytes/100 WBC (Bld) Lymphocyte 20.90 % (20-40 %) 20 - 40 % S MCH (RBC) [Entitic mass] MCH 27.8 PG (26-34 PG) 26 - 34 PG S MCHC (RBC) [Mass/Vol] MCHC 32.0 % (31-37 %) 31 - 37 % S MCV (RBC) [Entitic vol] MCV 87.1 FL (80-100 FL) 80 - 100 FL S Monocytes (Bld) [#/Vol] Abs Gage 0.39 K/UL (0-0.8 K/UL) 0 - 0.8 K/UL [facility] Monocytes/100 WBC (Bld) Monocyte 11.30 % H (0-8 %) High 0 - 8 % S Neutrophils (Bld) [#/Vol] Abs.Neut.Calculated 2.26 K/UL (Reference Range: not available) Performed at [address] [address] [facility] Neutrophils (Bld) [#/Vol] Abs Neut 2.26 K/UL (1.8-7.7 K/UL) 1.8 - 7.7 K/UL S Neutrophils.immature/ 100 WBC (Bld) Immature Neut % 0.30 % (0.0-1.0 %) 0.0 - 1.0 % [employer] Nucleated RBC/100 WBC (Bld) [Ratio] NRBCs 0 /100 WBC (0 /100 WBC) [employer] a Student Platelet mean volume (Bld) [Entitic vol] MPV 10.9 CU (7.0-12.6 CU) 7.0 - 12.6 CU [employer] Platelets (Bld) [#/Vol] PLT 165 K/UL (150-450 K/UL) 150 - 450 K/UL [employer] RBC (Bld) [#/Vol] RBC 4.74 M/UL (4.5-5 .5 M/UL) 4.5 - 5.5 M/UL [employer] Segmented neutrophils/100 WBC (Bld) Granulocyte 65.70 % (50-70 %) 50 - 70 % [employer] a Student WBC (Bld) [#/Vol] WBC 3.4 K/UL L (4.5- 11.0 K/UL) Low 4.5 - 11.0 K/UL [employer] a Student No Panel Informationon 05-07 HS Troponin T Delta 5 H (0-4 ) Performed at [address] [address] High 0 - 4 [facility] EKG (Reference Range : not available) Ventricular Rate : 91 BPM Atrial Rate : 91 BPM P-R Interval : 160 ms QRS Duration : 100 ms Q-T Interval : 342 ms QTC Calculation(Bazett) : 420 ms Calculated P [place] : 36 degrees Calculated R [place] : -29 degrees Calculated T [place] : 24 degrees Diagnosis:Normal sinus rhythm Poor R wave progression Abnormal ECG When compared with ECG of 06-MAY-2021 09:58, No significant change was found Confirmed by ROBERTH STORY ([id number]) on 05/07/2021 11:44:56 AM See also the report from this date [facility] Laboratory - Chemistry and C hemistry - challengeon 05-06-2021 Troponin T.cardiac [Mass/Vol] HS Troponin T,Gen 5 6 NG/L (-<15 NG/L) LESS THAN Sex Specific Reference Range: Male (0-22), Female (0-14) Change(Delta) >=5 is significant Troponin Baseline and Serial elevation for significant change(delta)should be interpreted in conjunction with clinical presentation, history, signs and symptoms, ECG and biomarker concentrations. Troponin elevation can be seen in several other non-infarct conditions. Chronic troponin elevations can be detected in clinically stable patients with heart failure, cardiomyopathy, renal failure, diabetes, etc. Elevated troponin can also occur in myocarditis, heart contusion, PE, drug induced cardiotoxicity, etc. Samples should NOT be taken from patients receiving high dose biotin (> 5mg) doses until 8 hours following last biotin administration. [employer] [facility] Anion gap [Moles/Vol] Anion Gap 14 MMOL/ L (0-19 MMOL/L) 0 - 19 MMOL/L [facility] Calcium [Mass/Vol] Calcium 9.1 MG/DL (8.5-10.4 MG/DL) 8.5 - 10.4 MG/DL [facility] Chloride [Moles/Vol] Chloride 105 MMOL/L (97-107 MMOL/L) 97 - 107 MMOL/L [facility] CO2 [Moles/Vol] Carbon Dioxide 20 MM OL/L L (24-31 MMOL/L) Low 24 - 31 MMOL/L [facility] Creatinine [Mass/Vol] Creatinine R 0.9 M G/DL (0.4-1.6 MG/DL) 0.4 - 1.6 MG/DL [facility] GFR/1.73 sq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 EKG shows some flipped T's in the inferior leads questionable ST elevations, STEMI activated and patient was brought to the ER for evaluation. Patient denies any chest pain at this time. He states he was sleeping he did not pass out. He states he thinks he has a tumor and evidently swallowed read something it causes chest pain. Patient has had frequent ED visits in the last few weeks. 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 Denies history of known CAD denies cardiac stents in the past. Patient is an extremely difficult historian who frequently interrupts during interview and is very tangential. He keeps changing history multiple times. 04.17.2021 1430 TCC: Patient is ambulating in the hallways. TCC spoke with patient when he came up to the nurses station asking for a nurse who can order GI consult for him. He is fixated on the thought that he has abdominal CA and wants to see GI right now. He says he even contacted Dr Martins's office a few minutes ago and was told by office staff that a nurse here can order the consult. I feel the cancer is spreading by the minute and I need someone to look at it right now . He says that EMS has been to his house eighteen times recently. SW was sitting with TCC at this time and engaged in discussion with patient as well. Patient then said he would like to appeal his discharge. TCC and SW informed him that he is OBS status and no appeal is available to him. Patient was being monitored for CP and is waiting for attending to see. Discharge orders are suspended pending MD assessment. Patient has no skilled home needs identified at this time. Educated patient/family regarding OBS status. All questions answered and addressed. Bisi PATRICIO. Assessment: Discharge Planning Assessment [id number] Primary Contact Name and NumberPatricdevante Elam(1) Stated Reason for AdmissionLow Bp(1) Arrived Fromemergency department (1) Readmission Within the Last 30 Daysno previous admission in last 30 days Medication Adherence/Afford/Obtainy es [place] Lives Withalone(1) Living Arrangementsapartment(1) Prior Level of Functioningindependent Equipment Currently Used at [place] bench; nutrition supplies; cane, quad/straight(1) Resource/Environmental Concernsreliable transportation(1) Transportation Concernscar, none(1) Anticipated Transition [place](1) Services Anticipated at Transitionmedical specialist; correctional counselor/case manager(1) Anticipated Changes Related to Illnessnone Equipment Needed After Dischargenone Anticipated Discharge Facility/Level of Care NeedsHome Electronic Signatures: Ema Boss (RN) (Signed 17-Apr-2021 15:19) Authored: Discharge Planning, Assessment Last Updated: 17-Apr-2021 15:19 by Ema Boss (RN) References: 1. Data Referenced From Patient Profile - Adult v2 17-Apr-2021 04:20 Normal [facility] Discharge [id number] Discharge Profile2 Discharge Orders: Anticipated Discharge Date: Anticipated Discharge [id number] Hospital Providers: Provider RoleProvider Name Carlos Acosta Joel DNAR: DNAR Status: none Activity: activity as tolerated. Diet: Dietresume normal diet Provider FINAL REVIEW of Orders: Final Review: Final Review of Medication Reconciliation and Orders Completedby VIOLET Banuelos ProviderDAE Holbrook at 17-Apr-2021 11:03:39 Appointments: Follow-Up Appointment 01: Physician/Dept/Simone e your PCP Reason for Referralhospital follow up Call to Schedule in1 week Follow-Up Appointment 02: Physician/Dept/Get Baugh CNP, Gastroenterology Reason for Referralhospital follow up Scheduled Date/Cmsp30-Dry-2000 11:00 [facility] [address] [address] Phone [phone] CommentsPlease bring your insurance card, photo id, a list of medication in the original bottle, any co-pays you may have, and the discharge summary Electronic Signatures: Laura Carvajal (VIOLET-LADONNA) (Signed 17-Apr-2021 11:03) Authored: Discharge Orders, Provider FINAL REVIEW of Orders, Appointments, Gold Form - Travel Ticketing Reviewer Summary Britney Mccallum (PT ACC REP) (Signed 17-Apr-2021 15:05) Authored: Discharge Orders, Appointments Last Updated: 17-Apr-2021 15:05 by Britney Mccallum (PT ACC REP) Normal [facility] No Panel Informationon 04-17 [email or web address] [email or web address]?RetrieveTestByDateTim e?AafrliaEG=[id number]&Da te=17-04-2021&Time=03%3a 44%3a07%3a00&TestType=EC G&Site=2&OutputType=PDF& Ext=PDF [facility] [address] Practice Work Phone: Normal sinus rhythm [facility] [address] Practice Work Phone: Abnormal [facility] [address] Practice Work Phone: [phone] [facility] [address] Practice Work Phone: [phone] [facility] Practice Work Phone: [phone] [facility] [address] Practice Work Phone: [phone] [facility] [address] Practice Work Phone: [phone] [facility] [address] Practice Work Phone: [phone] [facility] [address] Practice Work Phone: [phone] [facility] [address] Practice Work Phone: [phone] [facility] [address] Practice Work Phone: [phone] [facility] [address] Practice Work Phone: [phone] [facility] [address] Practice Work Phone: [phone] [facility] [address] Practice Work Phone: [phone] [facility] [address] Practice Work Phone: [phone] [facility] [address] Practice Work Phone: [phone] [facility] [address] Practice Work Phone: Order Reconciliationon 04-17 Order Reconciliation Page 1 Discharge Reconciliation Document Reconciliation Type: Discharge requested on behalf of Laura Carvajal (Advanced Practice Nurse) done by Laura Carvajal (LANDSCAPE ENGINEER-[facility]) Discharge - Reconciliation: 17-Apr-2021 10:59 by: Laura Carvajal (LANDSCAPE ENGINEER-[facility]) Home Medications EnteredHOME MEDICATIONS AT DISCHARGE DateReconciliation Comment/ Additional Information cloNIDine 0.1 mg oral tablet 1 tab(s) orally once a day, and As Needed for BP above 140/90 13-Feb-2021 10:29 cloNIDine 0.1 mg oral tablet 1 tab(s) orally once a day, and As Needed for BP above 140/90 13-Feb-2021 10:29 cloNIDine 0.1 mg oral tablet is continued as cloNIDine 0.1 mg oral tablet losartan 50 mg oral tablet 1 tab(s) orally once a day 13-Feb-2021 10:31 losartan 50 mg oral tablet 1 tab(s) orally once a day 13-Feb-2021 10:31 losartan 50 mg oral tablet is continued as losartan 50 mg oral tablet metoprolol succinate 25 mg oral tablet, extended release 1 tab(s) orally once a day 13-Feb-2021 10:32 metoprolol succinate 25 mg oral tablet, extended release 1 tab(s) orally once a day 13-Feb-2021 10:32 metoprolol succinate 25 mg oral tablet, extended release is continued as metoprolol succinate 25 mg oral tablet, extended release Current OrdersDateHOME MEDICATIONS AT DISCHARGE DateReconciliation Comment/ Additional Information Acetaminophen Tablet (TYLENOL)DOSE = 650 mg Oral Every 4 Hours, PRN Pain - Mild (1-3) 17-Apr-2021 00:14 Acetaminophen is not required Atorvastatin Tablet (LIPITOR)DOSE = 10 mg Oral Daily 17-Apr-2021 00:07 Atorvastatin is not required Enoxaparin SubCutaneous (LOVENOX)DOSE = 40 mg SubCutaneous Every 24 Hours 17-Apr-2021 00:14 Enoxaparin SubCutaneous is not required Losartan Tablet (COZAAR)DOSE = 50 mg Oral Daily 17-Apr-2021 00:07 Losartan is not required Metoprolol Succinate Extended Release Tablet, Extended Release (TOPROL-XL)DOSE = 25 mg Oral Daily 17-Apr-2021 00:07 Metoprolol Succinate Extended Release is not required Ondansetron Injectable (ZOFRAN)DOSE = 4 mg IntraVenous Push Every 4 Hours, PRN Nausea and/or Vomiting 17-Apr-2021 00:14 Ondansetron Injectable is not required Pantoprazole Enteric Coated Tablet (PROTONIX)DOSE = 40 mg Oral Daily Before First Meal 17-Apr-2021 00:07 pantoprazole 40 mg oral delayed release tablet 1 tab(s) orally once a day 17-Apr-2021 10:58 Prescription is created for pantoprazole 40 mg oral delayed release tablet Home Medications Added During Discharge Reconciliation Discharge Discharge Diagnosis< R07.9 Chest pain Discharge ProviderLorena Rajendra Discharge Disposition : .Home Condition at Discharge: Fair Discharge Communication Instructions for Nursing Only: Remove IV prior to discharge from hospital. Do not remove any midline, if present, without an order from the provider. Discharge Instructions - PHR After your discharge from the hospital, two Summary of Care Documents will be available online in your Personal Health Record (PHR). 1.Consolidated-Clinical Document Architecture (C-CDA) Patient Discharge Summary This document is a summary of your hospital stay to be kept for your reference.2.C-CDA Visit Summary This document is a summary of your hospital stay to be shared with your follow-up providers (doctor, monitor technician, physical therapist, etc.). Guidelines for a Healthy Lifestyle All Active Home Medications at time of Discharge Reconciliation: 17-Apr-2021 10:59 cloNIDine 0.1 mg oral tablet 1 tab(s) orally once a day, and As Needed for BP above 140/90 Discharge Discharge Diagnosis< R07.9 Chest pain Discharge ProviderLorena Rajendra Discharge Disposition : .Home Condition at Discharge: Fair Discharge Communication Instructions for Nursing Only: Remove IV prior to discharge from hospital. Do not remove any midline, if present, without an order from the provider. Discharge Instructions - PHR After your discharge from the hospital, two Summary of Care Documents will be available online in your Personal Health Record (PHR). 1.Consolidated-Clinical Document Architecture (C-CDA) Patient Discharge Summary This document is a summary of your hospital stay to be kept for your reference.2.C-CDA Visit Summary This document is a summary of your hospital stay to be shared with your follow-up providers (doctor, monitor technician, physical therapist, etc.). Guidelines for a Healthy Lifestyle losartan 50 mg oral tablet 1 tab(s) orally once a day metoprolol succinate 25 mg oral tablet, extended release 1 tab(s) orally once a day pantoprazole 40 mg oral delayed release tablet 1 tab(s) orally once a day Normal [facility] Order Reconciliation Page 1 Admission Reconciliation Document Reconciliation Type: ED to Observation requested on behalf of Carlos Carrillo (Physician) done by Carlos Carrillo) ED to Observation - Partial Reconciliation: 17-Apr-2021 00:07 by: Carlos Carrillo) ED to Observation - AutoLinked: 17-Apr-2021 01:30 by: PSCKarina So (ADMIN) ED to Observation - Reconciliation: 17-Apr-2021 18:03 by: Carlos Carrillo) Home MedicationsEnteredLast Dose TakenReconciled with current Order Reconciliation Comment/ Additional Information amLODIPine 5 mg oral tablet 1 tab(s) orally once a day 17-Apr-2021 NoLongerTaking Reviewed and Held amoxicillin-clavulanate 875 mg-125 mg oral tablet 1 tab(s) orally every 12 hours 17-Apr-2021 NoLongerTaking Reviewed and Held AneCream 5 topical cream Apply topically to affected area 17-Apr-2021 NoLongerTaking Reviewed and Held atorvastatin 10 mg oral tablet 1 tab(s) orally once a day 17-Apr-2021 Atorvastatin Tablet (LIPITOR)DOSE = 10 mg Oral DailyNoLongerTaking atorvastatin 10 mg oral tablet continued as the inpatient order Atorvastatin azelastine 137 mcg/inh (0.1%) nasal spray 2 spray(s) nasal 2 times a day 17-Apr-2021 NoLongerTaking Reviewed and Held cholecalciferol 5000 intl units (125 mcg) oral capsule 1 cap(s) orally once a day 17-Apr-2021 NoLongerTaking Reviewed and Held clonazePAM 0.5 mg oral tablet 1 tab(s) orally once a day 17-Apr-2021 NoLongerTaking Reviewed and Held cloNIDine 0.1 mg oral tablet 1 tab(s) orally once a day, and As Needed for BP above 140/[id number] UNKNOWN Reviewed and Held dexamethasone 4 mg oral tablet 1 tab(s) orally once a day 17-Apr-2021aking Reviewed and Held docusate sodium 100 mg oral tablet 1 tab(s) orally 2 times a day 17-Apr-2021 Noaking Reviewed and Held hydrALAZINE 10 mg oral tablet 1 tab(s) orally once a day 17-Apr-2021aking Reviewed and Held lidocaine 2% mucous membrane solution 5 milliliter(s) mucous membrane every 4 hours, As Needed for upset stomach 17-Apr-2021 Reviewed and Held losartan 50 mg oral tablet 1 tab(s) orally once a [id number] 1 AM Losartan Tablet (COZAAR)DOSE = 50 mg Oral Dailylosartan 50 mg oral tablet continued as the inpatient order Losartan Melatonin 5 mg oral tablet 1 tab(s) orally once a day (at bedtime) 17-Apr-2021 Reviewed and Held metoprolol succinate 25 mg oral tablet, extended release 1 tab(s) orally once a [id number] 1 AM Metoprolol Succinate Extended Release Tablet, Extended Release (TOPROL-XL)DOSE = 25 mg Oral Dailymetoprolol succinate 25 mg oral tablet, extended release continued as the inpatient order Metoprolol Succinate Extended Release Multiple Vitamins oral tablet 1 tab(s) orally once a day 17-Apr-2021 NoerTaking Reviewed and Held pantoprazole 40 mg oral delayed release tablet 1 tab(s) orally once a day 17-Apr-2021 Pantoprazole Enteric Coated Tablet (PROTONIX)DOSE = 40 mg Oral Daily Before First MealNoLongerTaking pantoprazole 40 mg oral delayed release tablet continued as the inpatient order Pantoprazole pantoprazole 40 mg oral delayed release tablet 1 tab(s) orally once a day 17-Apr-2021 NoLongerTaking Reviewed and Held pantoprazole 40 mg oral delayed release tablet 1 tab(s) orally once a day [id number] AM Reviewed and Held sucralfate 1 g/10 mL oral suspension 10 milliliter(s) orally 4 times a day (before meals and at bedtime) 17-Apr-2021 NoLongerTaking Reviewed and Held triamterene-hydrochlorot hiazide 37.5 mg-25 mg oral capsule 1 cap(s) orally once a day 17-Apr-2021 NoLongerTaking Reviewed and Held zinc (as acetate) 50 mg oral capsule 1 cap(s) orally once a day 17-Apr-2021 NoLongerTaking Reviewed and Held Additional Current Orders Acetaminophen Tablet (TYLENOL)DOSE = 650 mg Oral Every 4 Hours, PRN Pain - Mild (1-3) Enoxaparin SubCutaneous (LOVENOX)DOSE = 40 mg SubCutaneous Every 24 Hours Ondansetron Injectable (ZOFRAN)DOSE = 4 mg IntraVenous Push Every 4 Hours, PRN Nausea and/or Vomiting Normal [facility] Patient Profile - Adult v2on 04-17-2021 Patient Profile - Adult v2 Profile: Initial Info: How to be AddressedRay(1) Spoken Language PreferredEnglish (2) Source of Informationpatient Stated Reason for AdmissionLow Bp Primary Contact Name and NumberPatricdevante Borreromarizamike Other Contact Names and NumbersEugene Papa Wants Family/Rep Notified of Admissionyes, primary contact Notify PCPnotify PCP Informed of Patient Visiting Rightsyes Limitations on Visitors/Phone Callsnone Temporary Family Living Arrangements (While Hospitalized)none needed Arrived Fromemergency department Was Admitted To in Past 90 Daysnone Employment Statusemployed Current or Previous Serviceactive duty, past Service Experienceexposed to hazardous materials Patient Belongingsremains with patient Patient Belongings Remaining with Patientclothing Medications Brought to Hospitalno General Health: Blood Avoidance/Restrictionsno ne Previous Transfusion Reactionno Equipment Currently Used at Homebath bench; nutrition supplies; cane, quad/straight Normal Bedtime/Wake Vpls7ph/9am Sleep Aids/Routinemeditation; music Feel Rested Upon Awakeningyes Weight in kg85.7 kilogram(s)(3) Weight in rbu994.9 pound(s) Weight Methodactual (measured) (4) Scale Typestanding Height in cm165.1 centimeter(s) Height in feet5 feet(3) Height in inches5 inch(es)(3) Height Methodstated BMI (kg/m2)31.44 square meter RSP Based Care: Recent Change in Mood/Behaviordenies Major Change/Loss/Stressor/Fea rsmedical condition, self Techniques to Amawalk with Loss/Stress/Changemedita tion; substance use How would you like to participate in your carekept up on everything that is going on What is the number one concern for you during this hospitalizationPatient is concerned with his GI tract and would like it look into What is the most important thing we can do to support you during this hospitalizationWould like to speak with a Steel Rigger Is there anything we need to know to best care for youWants to be seen by GI Goran/davon Substance: Smoking Statusoccasional user (use that is infrequent, sporadic, not on a daily basis) Tobacco Cessation Education (provide if tobacco use within the last 12 mos) patient declined Alcohol Usedaily Drug Usedenies Drug 2 Usedenies Health Mgmt: Symptoms/Conditions Managed at Homecardiovascular Cardiovascular Symptoms/Conditionshyper tension Cardiovascular Managementnot managed Barriers to Managing Healthlack of transportation Relationship/Environ: Significant Exposurenone Resource/Environmental Concernsreliable transportation Transportation Concernscar, none Primary Source of Support/Comfortno one Lives Withalone Living Arrangementsapartment Services Anticipated at Transitionmedical specialist; correctional counselor/case manager [facility]ated [facility] Significant IndicatorsComplete Information Review: Allergies, Home Meds and Significant Events have been Reviewed and Verified with Patient/Familyyes ALLERGY, INTOLERANCE, ADVERSE EVENT: Allergies: Erythromycin Base: Drug, Unknown, Active caffine: Food, Other, Active Cipro: Drug, Unknown, Active Intolerances: polyethylene glycol 3350: Drug, GI Upset, Active Electronic Signatures: Mahsa Mckeon (BRIONNA) (Signed 17-Apr-2021 05:30) Authored: Initial Info, General Health, [facility] Based Care, Substance, Health Mgmt, Relationship/Environ, Additional Information Last Updated: 17-Apr-2021 05:30 by Mahsa Mckeon (EVENTS MANAGER) References: 1. Data Referenced From Patient Profile - Adult v2 12-Feb-2021 22:56 2. Data Referenced From Triage - ED 04-Apr-2021 09:34 3. Data Referenced From 1. Vital Signs 17-Apr-2021 04:12 4. Data Referenced From 1. Vital Signs 17-Apr-2021 03:54 Normal [facility] Provider Note - ED v2on 07-2 Provider Note - ED v2 Provider Note - ED v2: Chart Review: ED NOTES ED NOTES: HPI: [] 50-year-old white male with a history of bipolar disorder, hypertension, extobacco use, known thoracic aortic aneurysm, renal artery stenosis today comes in with chest pain and questionable syncope. Patient called EMS earlier today for chest pain had a normal EKG refused transport by EMS called called again because the patient was found unresponsive, repeat EKG shows some flipped T's in the inferior leads questionable ST elevations, STEMI activated and patient was brought to the ER for evaluation. Patient denies any chest pain at this time. He states he was sleeping he did not pass out. He states he thinks he has a tumor and evidently swallowed read something it causes chest pain. Patient has had frequent ED visits in the last few weeks. 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 Denies history of known CAD denies cardiac stents in the past. Patient is an extremely difficult historian who frequently interrupts during interview and is very tangential. He keeps changing history multiple times. Past history: Bipolar disorder, hypertension, thoracic aortic aneurysm, renal artery stenosis, ex tobacco use, remote pulmonary embolism, Social: Ex tobacco use, denies current tobacco alcohol or drug abuse. REVIEW OF SYSTEMS: GENERAL.: No weight loss, fatigue, anorexia, insomnia, fever. EYES: No vision loss, double vision, drainage, eye pain. ENT: No pharyngitis, dry mouth. CARDIOPULMONARY: No chest pain, palpitations, syncope, near syncope. No shortness of breath, cough, hemoptysis. GI: No abdominal pain, change in bowel habits, melena, hematemesis, hematochezia, nausea, vomiting, diarrhea. : No discharge, dysuria, frequency, urgency, hematuria. MS: No limb pain, joint pain, joint swelling. SKIN: No rashes. PSYCH: No depression, anxiety, suicidality, homicidality. Review of systems is otherwise negative unless stated above or in history of present illness. Social history, family history, allergies reviewed. PHYSICAL EXAM: GENERAL: Vitals noted, no distress. Alert and oriented x 3. Non-toxic. EENT: TMs clear. Posterior oropharynx unremarkable. No meningismus. No LAD. NECK: Supple. Nontender. No midline tenderness. CARDIAC: Regular, rate, rhythm. No murmurs rubs or gallops. No JVD PULMONARY: Lungs clear bilaterally with good aeration. No wheezes rales or rhonchi. No respiratory distress. ABDOMEN: Soft, nonsurgical. Nontender. No peritoneal signs. Normoactive bowel sounds. No pulsatile masses. EXTREMITIES: No peripheral edema. Negative Homans bilaterally, no cords. 2+ bounding pulses well perfused. SKIN: No rash. Intact. NEURO: No focal neurologic deficits, NIH score of 0. Cranial nerves normal as tested from II through XII. MEDICAL DECISION MAKING: EKG my trepidation shows a normal sinus rhythm normal axis he had inverted T waves in the lead III, with no reciprocal changes. CBC with differential, chemistries unremarkable troponin negative. CT angio of the chest and pelvis done which shows stable unchanged 4 x 4 centimeter sending thoracic aortic aneurysm no dissection and other findings of the abdomen please refer to radiology report. No pulmonary embolism. Treatment in the ED: STEMI activated prior to arrival to the ED. Prehospital and initial EKG transmitted to the senior mortgage underwriter who reviewed EKGs and at this time given the fact patient is chest pain-free it was deemed patient does not require emergent PCI and STEMI was canceled as per the recommendation. Patient was given aspirin. Remains pain-free. Impression: Chest pain Plan: Admission to medical service under Dr. Carrillo for further care. HISTORY OF PRESENTING ILLNESS HOSEA is a 50 year old Male and was seen by me at 16-Apr-2021 21:23. Triage Information: Most recent Vital Sign Value Date Temp (F): 98 04-16-2021 21:47 Temp (C): 36.6 04-16-2021 21:47 Heart Rate (beats/min): 71 04-16-2021 21:47 Respirations (breaths/min): 17 04-16-2021 21:47 SpO2 (%): 98 04-16-2021 21:47 BP Systolic (mm Hg): 111 04-16-2021 21:47 BP Diastolic (mm Hg): 76 04-16-2021 21:47 PAST MEDICAL HISTORY ATTESTATION: I have reviewed and confirmed nurse's/medic's notes for patient's medications, allergies, and medical, surgical, family and social history ALLERGIES/INTOLERANCES: Allergy Allergen: Erythromycin Base Type: Drug Reaction: Unknown Allergen: caffine Type: Food Reaction: Other Allergen: Cipro Type: Drug Reaction: Unknown Intolerance Allergen: polyethylene glycol 3350 Type: Drug Reaction: GI Upset HEALTH HISTORY: Family History Name:No family history of cancer Code:Z78.9 Name:No family history of coronary artery disease Code:Z78.9 Medical History Name:Chest pain Code:R07.9 Name:Renal art (more content not included)... Normal [facility] TROPONIN Ion 04-17-2021 Troponin I.cardiac [Mass/Vol] ng/mL Normal 0.00 - 0.03 [facility] Comment on above: Result Comment: LESS THAN 0.04 NG/ML: NEGATIVE REPEAT TESTING IN THREE TO SIX HOURS IF CLINICALLY INDICATED. 0.04 - 0.5 NG/ML: CONSISTENT WITH POSSIBLE CARDIAC DAMAGE AND POSSIBLE INCREASED CLINICAL RISK. SERIAL MEASUREMENTS MAY HELP ASSESS EXTENT OF MYOCARDIAL DAMAGE. >0.5 NG/ML: CONSISTENT WITH CARDIAC DAMAGE, INCREASED CLINICAL RISK AND MYOCARDIAL INFARCTION. SERIAL MEASUREMENTS MAY HELP ASSESS EXTENT OF MYOCARDIAL DAMAGE. . Note: Troponin I testing is performed using different testing methodology at [facility] than at other [facility]. Direct result comparisons should only be made within the same method. Performed By: #### T ROP2 #### [facility] [address]TR [address] [place] [address] TROPONIN I Canceled Normal [facility] Comment on above: Order Comment: TEST TROPONIN I WAS CANCELLED, 04/17/2021 03:36 No specimen sent.. Result Comment: LESS THAN 0.04 NG/ML: NEGATIVE REPEAT TESTING IN THREE TO SIX HOURS IF CLINICALLY INDICATED. 0.04 - 0.5 NG/ML: CONSISTENT WITH POSSIBLE CARDIAC DAMAGE AND POSSIBLE INCREASED CLINICAL RISK. SERIAL MEASUREMENTS MAY HELP ASSESS EXTENT OF MYOCARDIAL DAMAGE. >0.5 NG/ML: CONSISTENT WITH CARDIAC DAMAGE, INCREASED CLINICAL RISK AND MYOCARDIAL INFARCTION. SERIAL MEASUREMENTS MAY HELP ASSESS EXTENT OF MYOCARDIAL DAMAGE. . Note: Troponin I testing is performed using different testing methodology at [facility] than at other [facility]. Direct result comparisons should only be made within the same method. Performed By: #### T ROP2 ####[facility] [id number] [place] [address] Troponin I, Serumon 04-17-20 Troponin I.cardiac [Mass/Vol] ng/mL See Below [facility] 6 [facility] Work Phone: Comment on above: Reference Range: 0.0 0 - 0.03LESS THAN 0.04 NG/ML: NEGATIVEREPEAT TESTING IN THREE TO SIX HOURSIF CLINICALLY INDICATED.0.04 - 0.5 NG/ML: CONSISTENT WITH POSSIBLECARDIAC DAMAGE AND POSSIBLE INCREASEDCLINICAL RISK.SERIAL MEASUREMENTS MAY HELP ASSESS EXTENT OFMYOCARDIAL DAMAGE.>0.5 NG/ML: CONSISTENT WITH CARDIAC DAMAGE,INCREASED CLINICAL RISK AND MYOCARDIALINFARCTION. SERIAL MEASUREMENTS MAY HELPASSESS EXTENT OF MYOCARDIAL DAMAGE..Note: Troponin I testing is performed using different testing methodology at [facility] than at [facility]. Direct result comparisons should only be made within the same method. BASIC METABOLIC PANELon 03-24 Anion gap [Moles/Vol] 15 mmol/L Normal 10 - 20 [facility] Comment on above: Performed By: #### B MP ####[id number] [place] [address] Calcium [Mass/Vol] 8.7 mg/dL Normal 8.6 - 10.3 [facility] Comment on above: Performed By: #### B MP ####[facility] [id number] [place] [address] Chloride [Moles/Vol] 103 mmol/L Normal 98 - 107 [facility] Comment on above: Performed By: #### B MP ####[facility] [id number] [place] [address] Creatinine [Mass/Vol] 0.79 mg/dL Normal 0.50 - 1.30 [facility] Comment on above: Performed By: #### B MP ####[facility] [id number] [place] [address] GFR- AM. >60 Normal >60 [facility] Comment on above: Result Comment: CALC ULATIONS OF ESTIMATED GFR ARE PERFORMED USING THE MDRD STUDY EQUATION FOR THE IDMS-TRACEABLE CREATININE METHODS. CLIN CHEM 2007;53:766-72 Performed By: #### B MP ####[facility] [id number] [place] [address] GFR-NON AM. >60 Normal >60 [facility] Comment on above: Performed By: #### B MP ####[facility] [id number] [place] [id number] Glucose [Mass/Vol] 78 mg/dL Normal 74 - 99 [facility] Comment on above: Performed By: #### B MP ####[facility] [id number] [place] [address] HCO3 (Bld) [Moles/Vol] 24 mmol/L Normal 21 - 32 [facility] Comment on above: Performed By: #### B MP ####[facility] [id number] [place] [id number] Potassium [Moles/Vol] 3.6 mmol/L Normal 3.5 - 5.3 [facility] Comment on above: Performed By: #### B MP ####[facility] [id number] [place] [id number] Sodium [Moles/Vol] 138 mmol/L Normal 136 - 145 [facility] Comment on above: Performed By: #### B MP ####[facility] [id number] [place] [id number] Urea nitrogen [Mass/Vol] 16 mg/dL Normal 6 - 23 [facility] Comment on above: Performed By: #### B MP ####[facility] [id number] [place] [address] CBC AND DIFFERENTIALon 04-16 % AUTOMATED IMMATURE GRAN 0.3 % Normal 0.0 - 0.9 [facility] Comment on above: Result Comment: Kath ture Granulocyte Count (IG) includes promyelocytes, myelocytes and metamyelocytes but does not include bands. Percent differential counts (%) should be interpreted in the context of the absolute cell counts (cells/L). Performed By: #### C BCDF ####[facility] [place] [address] Basophils (Bld) [#/Vol] 0.02 10*3/uL Normal 0.00 - 0.10 [facility] Comment on above: Performed By: #### C BCDF ####[facility] [place] [address] Basophils/100 WBC (Bld) 0.5 % Normal 0.0 - 2.0 [facility] Comment on above: Performed By: #### C BCDF ####[facility] [place] [id number] Eosinophils (Bld) [#/Vol] 0.09 10*3/uL Normal 0.00 - 0.70 [facility] Comment on above: Performed By: #### C BCDF ####[facility] [place] [address] Eosinophils/100 WBC (Bld) 2.4 % Normal 0.0 - 6.0 [facility] Comment on above: Performed By: #### C BCDF ####[facility] [place] [id number] Erythrocyte distribution width (RBC) [Ratio] 13.3 % Normal 11.5 - 14.5 [facility] Comment on above: Performed By: #### C BCDF ####[facility] [place] [id number] Hematocrit (Bld) [Volume fraction] 36.8 % Low 41.0 - 52.0 [facility] Comment on above: Performed By: #### C BCDF ####[facility] [place] [address] Hemoglobin (Bld) [Mass/Vol] 12.1 g/dL Low 13.5 - 17.5 [facility] Comment on above: Performed By: #### C BCDF ####[facility] [id number] [place] [address] Lymphocytes (Bld) [#/Vol] 1.27 10*3/uL Normal 1.20 - 4.80 [facility] Comment on above: Performed By: #### C BCDF ####[facility] [id number] [place] [address] Lymphocytes/100 WBC (Bld) 33.9 % Normal 13.0 - 44.0 [facility] Comment on above: Performed By: #### C BCDF ####[facility] [id number] [place] [address] MCHC (RBC) [Mass/Vol] 32.9 g/dL Normal 32.0 - 36.0 [facility] Comment on above: Performed By: #### C BCDF ####[facility] [id number] [place] [address] MCV (RBC) [Entitic vol] 85 fL Normal 80 - 100 [facility] Comment on above: Performed By: #### C BCDF ####[facility] [id number] [place] [address] Monocytes (Bld) [#/Vol] 0.41 10*3/uL Normal 0.10 - 1.00 [facility] Comment on above: Performed By: #### C BCDF ####[facility] [id number] [place] [address] Monocytes/100 WBC (Bld) 10.9 % Normal 2.0 - 10.0 [facility] Comment on above: Performed By: #### C BCDF ####[facility] [id number] [place] [address] Neutrophils (Bld) [#/Vol] 1.95 10*3/uL Normal 1.20 - 7.70 [facility] Comment on above: Performed By: #### C BCDF ####[facility] [id number] [place] [address] Neutrophils/100 WBC (Bld) 52.0 % Normal 40.0 - 80.0 [facility] Comment on above: Performed By: #### C BCDF ####[facility] [id number] [place] [address] Platelets (Bld) [#/Vol] 149 10*3/uL Low 150 - 450 [facility] Comment on above: Performed By: #### C BCDF ####[facility] [id number] [place] [address] RBC 4.32 x10E12/L Low 4.50 - 5.90 [facility] Comment on above: Performed By: #### C BCDF ####[facility] [id number] [place] [address] WBC (Bld) [#/Vol] 3.8 10*3/uL Low 4.4 - 11.3 [facility] Comment on above: Performed By: #### C BCDF ####[facility] [id number] [place] [address] CHEST 1 VIEWon 04-16-2021 CHEST 1 VIEW Patient Name: HOSEA ALVAREZ STUDY: CHEST 1 VIEW; 04/16/2021 9:48 pm INDICATION: Chest Pain. COMPARISON: April 13, [address] day CT angiogram ACCESSION NUMBER(S): [id number] ORDERING CLINICIAN: ELÍAS TONY FINDINGS: AP radiograph of the chest was provided. Overlying cardiac leads CARDIOMEDIASTINAL SILHOUETTE: Unchanged cardiomediastinal silhouette. LUNGS: Lungs are clear. ABDOMEN: No remarkable upper abdominal findings. BONES: No acute osseous changes. IMPRESSION: 1. No evidence of acute cardiopulmonary process. Electronically signed by: SANTA WAY MD Normal [facility] CT Angio Cheston 04-16-2021 CTA Chest vessels Please click on the link to view the study images Normal [facility] Work Phone: Complete Blood Count + Diffe rentialon 04-16-2021 Basophils/100 WBC (Bld) 0.5 % 0.0 - 2.0 [facility] Work Phone: Erythrocyte distribution width (RBC) [Ratio] 13.3 % See Below [facility] Work Phone: Comment on above: Reference Range: 11. 5 - 14.5 Hematocrit (Bld) [Volume fraction] 36.8 % below low threshold See Below [facility] Work Phone: [phone] Comment on above: Reference Range: 41. 0 - 52.0 Hemoglobin (Bld) [Mass/Vol] 12.1 g/dL below low threshold See Below [facility] Work Phone: [phone] Comment on above: Reference Range: 13. 5 - 17.5 Lymphocytes/100 WBC (Bld) 33.9 % See Below [facility] 6 I Work Phone: Comment on above: Reference Range: 13. 0 - 44.0 MCHC (RBC) [Mass/Vol] 32.9 g/dL See Below [facility] Work Phone: Comment on above: Reference Range: 32. 0 - 36.0 MCV (RBC) [Entitic vol] 85 fL 80 - 100 [facility] I Work Phone: [phone] Monocytes/100 WBC (Bld) 10.9 % 2.0 - 10.0 [facility] Work Phone: Neutrophils/100 WBC (Bld) 52.0 % See Below [facility] Work Phone: Comment on above: Reference Range: 40. 0 - 80.0 Platelets (Bld) [#/Vol] 149 10*3/uL below low threshold 150 - 450 [facility] Work Phone: RBC (Bld) [#/Vol] 4.32 {x10E12/L} below low threshold See Below [facility] Work Phone: Comment on above: Reference Range: 4.5 0 - 5.90 WBC (Bld) [#/Vol] 3.8 10*3/uL below low threshold 4.4 - 11.3 [facility] Work Phone: [phone] Complete Blood Count + Differential 0.02 {x10E9/L} See Below [facility] Work Phone: [phone] Comment on above: Reference Range: 0.0 0 - 0.10 Complete Blood Count + Differential 0.09 {x10E9/L} See Below [facility] Work Phone: [phone] Comment on above: Reference Range: 0.0 0 - 0.70 Complete Blood Count + Differential 0.41 {x10E9/L} See Below [facility] Work Phone: [phone] Comment on above: Reference Range: 0.1 0 - 1.00 Complete Blood Count + Differential 1.27 {x10E9/L} See Below [facility] Work Phone: [phone] Comment on above: Reference Range: 1.2 0 - 4.80 Complete Blood Count + Differential 1.95 {x10E9/L} See Below [facility] Work Phone: Comment on above: Reference Range: 1.2 0 - 7.70 Complete Blood Count + Differential 2.4 % 0.0 - 6.0 [facility] Work Phone: [phone] Complete Blood Count + Differential 0.3 % 0.0 - 0.9 [facility] Work Phone: Comment on above: Immature Granulocyte Count (IG) includes promyelocytes, myelocytes and metamyelocytes but does not include bands. Percent differential counts (%) should be interpreted in the context of the absolute cell counts (cells/L). Coronavirus 2019 RNA by PCR, Screening Asymptomticon 04-16-2021 Coronavirus 2019 RNA by PCR, Screening Asymptomtic Not detected Normal See Below [facility] Work Phone: Comment on above: SOURCE: Nasal, Nasop haryngealReference Range: Not Detected.This test has received [facility] Emergency Use Authorization (EUA) and has been verified by [facility]. This test is only authorized for the duration of time that circumstances exist to justify the authorization of the emergency use of in vitro diagnostic tests for the detection of SARS-CoV-2 virus and/or diagnosis of COVID-19 infection under section 564(b)(1) of the Act, 21 U.S.C. 360bbb-3(b)(1), unless the authorization is terminated or revoked sooner. [facility] is certified under CLIA-88 as qualified to perform high complexity testing. Testing is performed in the [facility] laboratory located at [address] [place] [address].SARS-CoV-2/Flu/RSV Multiplex Test: Fact sheet for providers: https://www.fda.gov/media/771844/downloadFact sheet for patients: https://www.fda.gov/media/129237/download HEPATIC FUNCTION PANELon Albumin [Mass/Vol] 4.4 g/dL Normal 3.4 - 5.0 [facility] Comment on above: Performed By: #### H EPFP ####[facility] [id number] [place] [address] ALP [Catalytic activity/Vol] 45 U/L Normal 33 - 120 [facility] Comment on above: Performed By: #### H EPFP ####[facility] [id number] [place] [address] ALT [Catalytic activity/Vol] 15 U/L Normal 10 - 52 [facility] Comment on above: Result Comment: Yanni ents treated with Sulfasalazine may generate falsely decreased results for ALT. Performed By: #### H EPFP ####[facility] [id number] [place] [address] AST [Catalytic activity/Vol] 14 U/L Normal 9 - 39 [facility] Comment on above: Performed By: #### H EPFP ####[facility] [id number] [place] [address] Bilirubin [Mass/Vol] 0.4 mg/dL Normal 0.0 - 1.2 [facility] Comment on above: Performed By: #### H EPFP ####[id number] [place] [address] Bilirubin.indirect [Mass/Vol] 0.1 mg/dL Normal 0.0 - 0.3 [facility] Comment on above: Performed By: #### H EPFP ####[facility] [id number] [place] [address] Protein [Mass/Vol] 6.5 g/dL Normal 6.4 - 8.2 [facility] Comment on above: Performed By: #### H EPFP ####[facility] [id number] [place] [address] Hepatic Function Panelon Albumin BCP dye [Mass/Vol] 4.4 g/dL 3.4 - 5.0 [facility] Work Phone: ALP [Catalytic activity/Vol] 45 U/L 33 - 120 [facility] Work Phone: ALT With P-5'-P [Catalytic activity/Vol] 15 U/L 10 - 52 [facility] Work Phone: Comment on above: Patients treated wit h Sulfasalazine may generate falsely decreased results for ALT. AST With P-5'-P [Catalytic activity/Vol] 14 U/L 9 - 39 [facility] Work Phone: [phone] Bilirubin [Mass/Vol] 0.4 mg/dL 0.0 - 1.2 [facility] Work Phone: [phone] Bilirubin.direct [Mass/Vol] 0.1 mg/dL 0.0 - 0.3 [facility] Work Phone: [phone] Protein [Mass/Vol] 6.5 g/dL 6.4 - 8.2 [facility] 6 I Work Phone: [phone] Laboratory - Chemistry and C hemistry - challengeon 04-16-2021 Anion gap [Moles/Vol] 15 mmol/L 10 - 20 [facility] I Work Phone: [phone] Calcium [Mass/Vol] 8.7 mg/dL 8.6 - 10.3 [facility] Work Phone: [phone] Chloride [Moles/Vol] 103 mmol/L 98 - 107 [facility] 6 I Work Phone: [phone] CO2 [Moles/Vol] 24 mmol/L 21 - 32 [facility]e [facility] 6 I Work Phone: [phone] Creatinine [Mass/Vol] 0.79 mg/dL See Below [facility] Work Phone: [phone] Comment on above: Reference Range: 0.5 0 - 1.30 Glucose [Mass/Vol] 78 mg/dL 74 - 99 [facility] Work Phone: [phone] Potassium [Moles/Vol] 3.6 mmol/L 3.5 - 5.3 [facility] Work Phone: Sodium [Moles/Vol] 138 mmol/L 136 - 145 [facility] Work Phone: Urea nitrogen [Mass/Vol] 16 mg/dL 6 - 23 [facility] Work Phone: Laboratory - Coagulationon 0 04-16-2021 INR Coag (PPP) [Relative time] 1.0 {INR} 0.9 - 1.1 [facility] Work Phone: PT Coag (PPP) [Time] 11.5 s See Below [facility] Work Phone: Comment on above: Reference Range: 10. 1 - 13.3 MAGNESIUMon 04-16-2021 Magnesium [Mass/Vol] 1.90 mg/dL Normal 1.60 - 2.40 [facility] Comment on above: Performed By: #### M G ####[facility] [id number] [place] [address] Magnesium, Serumon Magnesium [Mass/Vol] 1.90 mg/dL See Below [facility] Work Phone: Comment on above: Reference Range: 1.6 0 - 2.40 No Panel Informationon 04-16 Normal [facility] Work Phone: >60 >60 [facility] Work Phone: Comment on above: CALCULATIONS OF NIKOLE MATED GFR ARE PERFORMED USING THE MDRD STUDY EQUATION FOR THE IDMS-TRACEABLE CREATININE METHODS. CLIN CHEM 2007;53:766-72 [email or web address]?RetrieveTestByDateTim e?AfwiplxLY=[id number]&Da te=16-04-2021&Time=21%3a 21%3a24%3a00&TestType=EC G&Site=2&OutputType=PDF& Ext=PDF [facility] [facility] Work Phone: Normal sinus rhythm MP-Co nnor [facility] [address] [facility] Work Phone: Normal [facility] [address] [facility] Work Phone: [phone] [facility] [address] [facility] Work Phone: [phone] [facility] [address] [facility] Work Phone: [phone] [facility] [address] [facility] Work Phone: [phone] [facility] [address] [facility] Work Phone: [phone] [facility] [address] [facility] Work Phone: [phone] [facility] [address] [facility] Work Phone: [phone] [facility] [address] [facility] Work Phone: [phone] [facility] [address] [facility] Work Phone: [phone] [facility] [address] [facility] Work Phone: [phone] [facility] [address] [facility] Work Phone: [phone] [facility] [address] [facility] Work Phone: [phone] [facility] [facility] Work Phone: [phone] [facility] [address] [facility] Work Phone: [phone] [facility] [facility] Work Phone: PT/INRon 04-16-2021 PT Coag (PPP) [Time] 11.5 s Normal 10.1 - 13.3 [facility] Comment on above: Performed By: #### P TINR ####[facility] [id number] [place] [address] PT, INR 1.0 Normal 0.9 - 1.1 [facility] Comment on above: Performed By: #### P TINR ####[facility] [id number] [place] [address] Radiologyon 04-16-2021 XR Chest Single view Normal [facility]-Bol[facility] l 6 I Work Phone: TROPONIN Ion 04-16-2021 Troponin I.cardiac [Mass/Vol] ng/mL Normal 0.00 - 0.03 [facility] Comment on above: Result Comment: LESS THAN 0.04 NG/ML: NEGATIVE REPEAT TESTING IN THREE TO SIX HOURS IF CLINICALLY INDICATED. 0.04 - 0.5 NG/ML: CONSISTENT WITH POSSIBLE CARDIAC DAMAGE AND POSSIBLE INCREASED CLINICAL RISK. SERIAL MEASUREMENTS MAY HELP ASSESS EXTENT OF MYOCARDIAL DAMAGE. >0.5 NG/ML: CONSISTENT WITH CARDIAC DAMAGE, INCREASED CLINICAL RISK AND MYOCARDIAL INFARCTION. SERIAL MEASUREMENTS MAY HELP ASSESS EXTENT OF MYOCARDIAL DAMAGE. . Note: Troponin I testing is performed using different testing methodology at [facility] than at [facility]. Direct result comparisons should only be made within the same method. Performed By: #### T ROP2 ####[facility] [id number] [place] [address] TROPONIN I Canceled Normal [facility] Comment on above: Order Comment: TEST TROPONIN I WAS CANCELLED, 04/15/2021 22:52 Patient discharged.. Result Comment: LESS THAN 0.04 NG/ML: NEGATIVE REPEAT TESTING IN THREE TO SIX HOURS IF CLINICALLY INDICATED. 0.04 - 0.5 NG/ML: CONSISTENT WITH POSSIBLE CARDIAC DAMAGE AND POSSIBLE INCREASED CLINICAL RISK. SERIAL MEASUREMENTS MAY HELP ASSESS EXTENT OF MYOCARDIAL DAMAGE. >0.5 NG/ML: CONSISTENT WITH CARDIAC DAMAGE, INCREASED CLINICAL RISK AND MYOCARDIAL INFARCTION. SERIAL MEASUREMENTS MAY HELP ASSESS EXTENT OF MYOCARDIAL DAMAGE. . Note: Troponin I testing is performed using different testing methodology at [facility] than at [facility]. Direct result comparisons should only be made within the same method. Performed By: #### T ROP2 ####[facility] [id number] [place] [address] Troponin I, Serumon 04-16-20 Troponin I.cardiac [Mass/Vol] ng/mL See Below [facility] Work Phone: Comment on above: Reference Range: 0.0 0 - 0.03LESS THAN 0.04 NG/ML: NEGATIVEREPEAT TESTING IN THREE TO SIX HOURSIF CLINICALLY INDICATED.0.04 - 0.5 NG/ML: CONSISTENT WITH POSSIBLECARDIAC DAMAGE AND POSSIBLE INCREASEDCLINICAL RISK.SERIAL MEASUREMENTS MAY HELP ASSESS EXTENT OFMYOCARDIAL DAMAGE.>0.5 NG/ML: CONSISTENT WITH CARDIAC DAMAGE,INCREASED CLINICAL RISK AND MYOCARDIALINFARCTION. SERIAL MEASUREMENTS MAY HELPASSESS EXTENT OF MYOCARDIAL DAMAGE..Note: Troponin I testing is performed using different testing methodology at [facility] than at other [facility]. Direct result comparisons should only be made within the same method. CBC AND DIFFERENTIALon 04-15 % AUTOMATED IMMATURE GRAN 0.3 % Normal 0.0 - 0.9 [facility] Comment on above: Result Comment: Kath ture Granulocyte Count (IG) includes promyelocytes, myelocytes and metamyelocytes but does not include bands. Percent differential counts (%) should be interpreted in the context of the absolute cell counts (cells/L). Performed By: #### C BCDF ####[facility] [id number] [place] [address] Basophils (Bld) [#/Vol] 0.02 10*3/uL Normal 0.00 - 0.10 [facility] Comment on above: Performed By: #### C BCDF ####[id number] [place] [address] Basophils/100 WBC (Bld) 0.7 % Normal 0.0 - 2.0 [facility] Comment on above: Performed By: #### C BCDF ####[facility] [id number] [place] [address] Eosinophils (Bld) [#/Vol] 0.05 10*3/uL Normal 0.00 - 0.70 [facility] Comment on above: Performed By: #### C BCDF ####[facility] [id number] [place] [address] Eosinophils/100 WBC (Bld) 1.7 % Normal 0.0 - 6.0 [facility] Comment on above: Performed By: #### C BCDF ####[facility] [id number] [place] [address] Erythrocyte distribution width (RBC) [Ratio] 13.4 % Normal 11.5 - 14.5 [facility] Comment on above: Performed By: #### C BCDF ####[facility] [id number] [place] [address] Hematocrit (Bld) [Volume fraction] 39.0 % Low 41.0 - 52.0 [facility] Comment on above: Performed By: #### C BCDF ####[facility] [id number] [place] [id number] Hemoglobin (Bld) [Mass/Vol] 12.5 g/dL Low 13.5 - 17.5 [facility] Comment on above: Performed By: #### C BCDF ####[facility] [id number] [place] [address] Lymphocytes (Bld) [#/Vol] 0.74 10*3/uL Low 1.20 - 4.80 [facility] Comment on above: Performed By: #### C BCDF ####[facility] [id number] [place] [address] Lymphocytes/100 WBC (Bld) 25.4 % Normal 13.0 - 44.0 [facility] Comment on above: Performed By: #### C BCDF ####[facility] [id number] [place] [address] MCHC (RBC) [Mass/Vol] 32.1 g/dL Normal 32.0 - 36.0 [facility] Comment on above: Performed By: #### C BCDF ####[facility] [id number] [place] [address] MCV (RBC) [Entitic vol] 87 fL Normal 80 - 100 [facility] Comment on above: Performed By: #### C BCDF ####[facility] [id number] [place] [address] Monocytes (Bld) [#/Vol] 0.35 10*3/uL Normal 0.10 - 1.00 [facility] Comment on above: Performed By: #### C BCDF ####[facility] [id number] [place] [address] Monocytes/100 WBC (Bld) 12.0 % Normal 2.0 - 10.0 [facility] Comment on above: Performed By: #### C BCDF ####[facility] [id number] [place] [address] Neutrophils (Bld) [#/Vol] 1.74 10*3/uL Normal 1.20 - 7.70 [facility] Comment on above: Performed By: #### C BCDF ####[facility] [id number] [place] [address] Neutrophils/100 WBC (Bld) 59.9 % Normal 40.0 - 80.0 [facility] Comment on above: Performed By: #### C BCDF ####[facility] [id number] [place] [address] Platelets (Bld) [#/Vol] 145 10*3/uL Low 150 - 450 [facility] Comment on above: Performed By: #### C BCDF ####[facility] [id number] [place] [address] RBC 4.49 x10E12/L Low 4.50 - 5.90 [facility] Comment on above: Performed By: #### C BCDF ####[facility] [id number] [place] [address] WBC (Bld) [#/Vol] 2.9 10*3/uL Low 4.4 - 11.3 [facility] Comment on above: Performed By: #### C BCDF ####[facility] [id number] [place] [address] CHEST 1 VIEWon 04-15-2021 CHEST 1 VIEW Patient Name: HOSEA ALVAREZ STUDY: CHEST 1 VIEW; 04/15/2021 12:30 pm INDICATION: Chest pain. COMPARISON: None. ACCESSION NUMBER(S): [id number] ORDERING CLINICIAN: CIERRA GIMENEZ FINDINGS: CARDIOMEDIASTINAL SILHOUETTE: Cardiomediastinal silhouette is normal in size and configuration. LUNGS: Lungs are clear. ABDOMEN: No remarkable upper abdominal findings. BONES: No acute osseous changes. IMPRESSION: 1. No evidence of acute cardiopulmonary process. Electronically signed by: RAS DE LA PAZ MD Normal [facility] COMPREHENSIVE PANELon 2020 Albumin [Mass/Vol] 4.2 g/dL Normal 3.4 - 5.0 [facility] Comment on above: Performed By: #### C MP ####[id number] [place] [address] ALP [Catalytic activity/Vol] 49 U/L Normal 33 - 120 [facility] Comment on above: Performed By: #### C MP ####[facility] [place] [address] ALT [Catalytic activity/Vol] 15 U/L Normal 10 - 52 [facility] Comment on above: Result Comment: Yanni ents treated with Sulfasalazine may generate falsely decreased results for ALT. Performed By: #### C MP ####[id number] [place] [address] Anion gap [Moles/Vol] 11 mmol/L Normal 10 - 20 [facility] Comment on above: Performed By: #### C MP ####[facility] [place] [address] AST [Catalytic activity/Vol] 15 U/L Normal 9 - 39 [facility] Comment on above: Performed By: #### C MP ####[id number] [place] [address] Bilirubin [Mass/Vol] 0.4 mg/dL Normal 0.0 - 1.2 [facility] Comment on above: Performed By: #### C MP ####[facility] [id number] [place] [address] Calcium [Mass/Vol] 8.9 mg/dL Normal 8.6 - 10.3 [facility] Comment on above: Performed By: #### C MP ####[facility] [id number] [place] [address] Chloride [Moles/Vol] 104 mmol/L Normal 98 - 107 [facility] Comment on above: Performed By: #### C MP ####[facility] [id number] [place] [address] Creatinine [Mass/Vol] 1.04 mg/dL Normal 0.50 - 1.30 [facility] Comment on above: Performed By: #### C MP ####[facility] [id number] [place] [address] GFR- AM. >60 Normal >60 [facility] Comment on above: Result Comment: CALC ULATIONS OF ESTIMATED GFR ARE PERFORMED USING THE MDRD STUDY EQUATION FOR THE IDMS-TRACEABLE CREATININE METHODS. CLIN CHEM 2007;53:766-72 Performed By: #### C MP ####[facility] [id number] [place] [address] GFR-NON AM. >60 Normal >60 [facility] Comment on above: Performed By: #### C MP ####[facility] [id number] [place] [address] Glucose [Mass/Vol] 99 mg/dL Normal 74 - 99 [facility] Comment on above: Performed By: #### C MP ####[facility] [id number] [place] [address] HCO3 (Bld) [Moles/Vol] 28 mmol/L Normal 21 - 32 [facility] Comment on above: Performed By: #### C MP ####[facility] [id number] [place] [address] Potassium [Moles/Vol] 4.0 mmol/L Normal 3.5 - 5.3 [facility] Comment on above: Performed By: #### C MP ####[facility] [id number] [place] [address] Protein [Mass/Vol] 6.7 g/dL Normal 6.4 - 8.2 [facility] Comment on above: Performed By: #### C MP ####[facility] [id number] [place] [address] Sodium [Moles/Vol] 139 mmol/L Normal 136 - 145 [facility] Comment on above: Performed By: #### C MP ####[facility] [id number] [place] [address] Urea nitrogen [Mass/Vol] 17 mg/dL Normal 6 - 23 [facility] Comment on above: Performed By: #### C MP ####[facility] [id number] [place] [address] Complete Blood Count + Diffe dominickon 04-15-2021 Basophils/100 WBC (Bld) 0.7 % 0.0 - 2.0 [facility] I Work Phone: [phone] Erythrocyte distribution width (RBC) [Ratio] 13.4 % See Below [facility] Work Phone: Comment on above: Reference Range: 11. 5 - 14.5 Hematocrit (Bld) [Volume fraction] 39.0 % below low threshold See Below [facility] Work Phone: Comment on above: Reference Range: 41. 0 - 52.0 Hemoglobin (Bld) [Mass/Vol] 12.5 g/dL below low threshold See Below [facility] Work Phone: Comment on above: Reference Range: 13. 5 - 17.5 Lymphocytes/100 WBC (Bld) 25.4 % See Below [facility] Work Phone: Comment on above: Reference Range: 13. 0 - 44.0 MCHC (RBC) [Mass/Vol] 32.1 g/dL See Below [facility] Work Phone: Comment on above: Reference Range: 32. 0 - 36.0 MCV (RBC) [Entitic vol] 87 fL 80 - 100 [facility] Work Phone: Monocytes/100 WBC (Bld) 12.0 % 2.0 - 10.0 [facility] Work Phone: [phone] Neutrophils/100 WBC (Bld) 59.9 % See Below [facility] Work Phone: Comment on above: Reference Range: 40. 0 - 80.0 Platelets (Bld) [#/Vol] 145 10*3/uL below low threshold 150 - 450 [facility] Work Phone: [phone] RBC (Bld) [#/Vol] 4.49 {x10E12/L} below low threshold See Below [facility] Work Phone: Comment on above: Reference Range: 4.5 0 - 5.90 WBC (Bld) [#/Vol] 2.9 10*3/uL below low threshold 4.4 - 11.3 [facility] Work Phone: Complete Blood Count + Differential 0.02 {x10E9/L} See Below [facility] Work Phone: Comment on above: Reference Range: 0.0 0 - 0.10 Complete Blood Count + Differential 0.05 {x10E9/L} See Below [facility] Work Phone: Comment on above: Reference Range: 0.0 0 - 0.70 Complete Blood Count + Differential 0.35 {x10E9/L} See Below [facility] Work Phone: Comment on above: Reference Range: 0.1 0 - 1.00 Complete Blood Count + Differential 0.74 {x10E9/L} below low threshold See Below [facility] Work Phone: Comment on above: Reference Range: 1.2 0 - 4.80 Complete Blood Count + Differential 1.74 {x10E9/L} See Below [facility] Work Phone: Comment on above: Reference Range: 1.2 0 - 7.70 Complete Blood Count + Differential 1.7 % 0.0 - 6.0 [facility] Work Phone: Complete Blood Count + Differential 0.3 % 0.0 - 0.9 [facility] Work Phone: Comment on above: Immature Granulocyte Count (IG) includes promyelocytes, myelocytes and metamyelocytes but does not include bands. Percent differential counts (%) should be interpreted in the context of the absolute cell counts (cells/L). EMR ADDONon 04-15-2021 ADDON CONFIRMATION REQUEST REC'D Normal [facility] Comment on above: Performed By: #### E MRAD ####[facility] [id number] [place] [address] Laboratory - Chemistry and C hemistry - challengeon 04-15-2021 Albumin BCP dye [Mass/Vol] 4.2 g/dL 3.4 - 5.0 [facility] Work Phone: ALP [Catalytic activity/Vol] 49 U/L 33 - 120 [facility] Work Phone: ALT With P-5'-P [Catalytic activity/Vol] 15 U/L 10 - 52 [facility] Work Phone: [phone] Comment on above: Patients treated wit h Sulfasalazine may generate falsely decreased results for ALT. Anion gap [Moles/Vol] 11 mmol/L 10 - 20 [facility] Work Phone: [phone] AST With P-5'-P [Catalytic activity/Vol] 15 U/L 9 - 39 [facility] Work Phone: [phone] Bilirubin [Mass/Vol] 0.4 mg/dL 0.0 - 1.2 [facility] Work Phone: [phone] Calcium [Mass/Vol] 8.9 mg/dL 8.6 - 10.3 [facility] Work Phone: [phone] Chloride [Moles/Vol] 104 mmol/L 98 - 107 [facility] Work Phone: [phone] CO2 [Moles/Vol] 28 mmol/L 21 - 32 [facility] Work Phone: [phone] Creatinine [Mass/Vol] 1.04 mg/dL See Below [facility] Work Phone: [phone] Comment on above: Reference Range: 0.5 0 - 1.30 Glucose [Mass/Vol] 99 mg/dL 74 - 99 [facility] I Work Phone: [phone] Potassium [Moles/Vol] 4.0 mmol/L 3.5 - 5.3 [facility] Work Phone: [phone] Protein [Mass/Vol] 6.7 g/dL 6.4 - 8.2 [facility] Work Phone: Sodium [Moles/Vol] 139 mmol/L 136 - 145 [facility] Work Phone: Urea nitrogen [Mass/Vol] 17 mg/dL 6 - 23 [facility] Work Phone: MAGNESIUMon 04-15-2021 Magnesium [Mass/Vol] 1.80 mg/dL Normal 1.60 - 2.40 [facility] Comment on above: Performed By: #### M G ####[facility] [id number] [place] [address] Magnesium, Serumon 1 Magnesium [Mass/Vol] 1.80 mg/dL See Below [facility] Work Phone: Comment on above: Reference Range: 1.6 0 - 2.40 No Panel Informationon 04-15 >60 >60 [facility] Work Phone: Comment on above: CALCULATIONS OF NIKOLE MATED GFR ARE PERFORMED USING THE MDRD STUDY EQUATION FOR THE IDMS-TRACEABLE CREATININE METHODS. CLIN CHEM 2007;53:766-72 [email or web address] e?[email or web address]=[id number]&Da te=15-04-2021&Time=11%3a 56%3a08%3a00&TestType=EC G&Site=2&OutputType=PDF& Ext=PDF [facility] Work Phone: Normal sinus rhythm [facility] Work Phone: Borderline Abnormal [facility] Work Phone: [phone] [facility] Work Phone: [phone] [facility] Work Phone: [phone] [facility] Work Phone: [phone] [facility] Work Phone: [phone] [facility] Work Phone: [phone] [facility] Work Phone: [phone] [facility] Work Phone: [phone] [facility] Work Phone: [phone] [facility] Work Phone: [phone] [facility] Work Phone: [phone] [facility] Work Phone: [phone] [facility] Work Phone: [phone] [facility] Work Phone: [phone] [facility] Work Phone: Provider Note - ED v2on 07- Provider Note - ED v2 Provider Note - ED v2: Chart Review: ED NOTES ED NOTES: HPI: This is a 50-year-old male with PMH HTN, renal artery stenosis, 4.5 cm ascending thoracic aneurysm, bipolar disorder presenting for complaint of left-sided chest pain since this morning. Patient has been seen multiple times in the ER over the past couple of weeks. Has been complaining of chest pain and additional 2 other complaints. Chest pain today is different and that it is on the left instead of the right. He also reports palpitations this morning. He drank a beer this morning to help him pee . Chest pain is nonexertional, nonpleuritic, radiating. He apparently went to the [place] fire department 3 times for this complaint and the last time they insisted to take him to the ER. He has had negative cardiac work-ups at his prior ER visits. He is scheduled to see GI as an outpatient in April for an EGD for complaint of dysphagia and feeling like food gets stuck for which he has also had ER visits. Denies any associated shortness of breath, fevers, cough, nausea, vomiting, diaphoresis, syncope, or near syncope. PMH: See HPI and EMR Allergies: NKDA Surgical history: Reviewed Family HX: Noncontributory Social Hx: Occasional EtOH, denies illicits. Non-smoker. Review of Systems: Gen.: weight loss, fatigue, anorexia, insomnia, fever Eyes: vision loss, double vision, drainage, eye pain ENT: pharyngitis, dry mouth Cardiac: +chest pain, +palpitations, syncope, near syncope Pulmonary: shortness of breath, cough, hemoptysis Heme/lymph: swollen glands, fever, bleeding GI: abdominal pain, change in bowel habits, melena, hematemesis, hematochezia, nausea, vomiting, diarrhea : discharge, dysuria, frequency, urgency, hematuria Musculoskeletal: limb pain, joint pain, joint swelling Neuro: loss of function, sensory deficits, dizziness Skin: rashes Psych: depression, anxiety, suicidality, homicidality Review of systems is otherwise negative unless stated above or in history of present illness. Physical Exam: General: Vitals noted, no distress. Afebrile. Alert and oriented x3. EENT: Posterior oropharynx unremarkable. Mucous membranes moist. Neck: Supple. Trachea midline. No lymphadenopathy. No JVD appreciated. Cardiac: Regular rate and rhythm. No murmur. 2+ symmetric peripheral pulses bilaterally. No tenderness to palpation of chest wall. No crepitus. Pulmonary: Lungs clear bilaterally with good aeration. No rales, rhonchi or wheezing. No accessory muscle use. Normal bilateral excursion. Patient speaks in complete sentences. Abdomen: Soft, nonsurgical. Nontender. No peritoneal signs. Normoactive bowel sounds. No organomegaly to palpation. Extremities: No peripheral edema. Negative Homans bilaterally, no cords. Neurovascularly intact throughout. Skin: No rash Neuro: No focal neurologic deficits. ED Course / Medical Decision-Makin-year-old male with PMH HTN, renal artery stenosis, 4.5 cm ascending thoracic aneurysm, bipolar disorder presenting for complaint of left-sided chest pain since this morning. Multiple ER visits for similar but different today is laterality. His vital signs are stable. He is comfortable appearing. Lungs and chest clear to auscultation. Soft nontender abdomen. 2+ symmetric peripheral pulses in extremities bilaterally. EKG nonischemic. HEART score is . Disclaimer: This note was dictated using speech recognition software. An attempt at proofreading was made to minimize errors. Minor errors in furnace filler may be present. Please call if questions. HISTORY OF PRESENTING ILLNESS HOSEA is a 50 year old Male and was seen by me at 15-Apr-2021 12:07 for a chief complaint of chest pain . Other complaints include: Patient arrived to ED with complaint of chest pain x45 minutes. He reports pain in left chest with associated left arm numbness.(1). The historian is the patient. Triage Information: Most recent Vital Sign Value Date Temp (F): 98.2 04-15-2021 12:14 Temp (C): 36.7 04-15-2021 12:14 Heart Rate (beats/min): 82 04-15-2021 12:14 Respirations (breaths/min): 18 04-15-2021 12:14 SpO2 (%): 99 04-15-2021 12:14 BP Systolic (mm Hg): 129 04-15-2021 12:14 BP Diastolic (mm Hg): 89 04-15-2021 12:14 PAST MEDICAL HISTORY ATTESTATION: I have reviewed and confirmed nurse's/medic's notes for patient's medications, allergies, and medical, surgical, family and social history ALLERGIES/INTOLERANCES: Allergy Allergen: Erythromycin Base Type: Drug Reaction: Unknown Allergen: caffine Type: Food Reaction: Other Allergen: Cipro Type: Drug Reaction: Unknown Intolerance Allergen: polyethylene glycol 3350 Type: Drug Reaction: GI Upset HEALTH HISTORY: Family History Name:No family history of cancer Code:Z78.9 Name:No family history of coronary artery disease Code:Z78.9 Medical History Name:Chest p (more content not included)... Normal [facility] Radiologyon 04-15-2021 XR Chest Single view Normal [facility] I Work Phone: Risk Screen - Adult Emergenc yon 04-15-2021 Risk Screen - Adult Emergency Preferred Language: Preferred Language: Preferred Language for Discussing Health Care (patient/designee)Fran villalta Advanced Directives: Advance Directive/DNRno Family Violence Adult: Abuse Screen: Are you or have you been threatened or abused physically, emotionally, or sexually by anyoneno Learning Assessment (Patient): Learning Assessment (Patient): Patient is Able to be Assessed for Learningyes Factors Influencing Readiness to Learnacuteness of illness Factors that Impact Ability to Learnnone Devices/Methods Used to Communicateglasses Learning Preferencesverbal instruction; written material Cultural Considerationsnone Developmental Considerationsnone Zoroastrian Considerationsnone Learning Assessment (Other Learner): Learning Assessment (Other Learner): Other learner availableno Pressure Injury/TB/Substance: Pressure Injury: Do you have a coughno Smoking Statusformer smoker Alcohol Usedenies Drug Usedenies Admission Risk Screen: Significant IndicatorsComplete CAGE: CAGE: Is this an injured patient at a Trauma Center ([facility]/[place] /[place]): no Electronic Signatures: Stefano Garcia ([place]) (Signed 15-Apr-2021 12:17) Authored: Preferred Language, Advanced Directives, Family Violence Adult, Learning Assessment (Patient), Learning Assessment (Other Learner), Pressure Injury/TB/Substance, Pressure Injury, CAGE Last Updated: 15-Apr-2021 12:17 by Stefano Garcia ([place]) Normal [facility] TROPONIN Ion 04-15-2021 TROPONIN I Canceled Normal [facility] Comment on above: Order Comment: TEST TROPONIN I WAS CANCELLED, 04/15/2021 16:05 PATIENT DISCHARGED. Result Comment: LESS THAN 0.04 NG/ML: NEGATIVE REPEAT TESTING IN THREE TO SIX HOURS IF CLINICALLY INDICATED. 0.04 - 0.5 NG/ML: CONSISTENT WITH POSSIBLE CARDIAC DAMAGE AND POSSIBLE INCREASED CLINICAL RISK. SERIAL MEASUREMENTS MAY HELP ASSESS EXTENT OF MYOCARDIAL DAMAGE. >0.5 NG/ML: CONSISTENT WITH CARDIAC DAMAGE, INCREASED CLINICAL RISK AND MYOCARDIAL INFARCTION. SERIAL MEASUREMENTS MAY HELP ASSESS EXTENT OF MYOCARDIAL DAMAGE. . Note: Troponin I testing is performed using different testing methodology at [facility] than at other [facility]. Direct result comparisons should only be made within the same method. Performed By: #### T ROP2 ####[facility] [id number] [place], [place] [id number] Troponin I.cardiac [Mass/Vol] ng/mL Normal 0.00 - 0.03 [facility] Comment on above: Result Comment: LESS THAN 0.04 NG/ML: NEGATIVE REPEAT TESTING IN THREE TO SIX HOURS IF CLINICALLY INDICATED. 0.04 - 0.5 NG/ML: CONSISTENT WITH POSSIBLE CARDIAC DAMAGE AND POSSIBLE INCREASED CLINICAL RISK. SERIAL MEASUREMENTS MAY HELP ASSESS EXTENT OF MYOCARDIAL DAMAGE. >0.5 NG/ML: CONSISTENT WITH CARDIAC DAMAGE, INCREASED CLINICAL RISK AND MYOCARDIAL INFARCTION. SERIAL MEASUREMENTS MAY HELP ASSESS EXTENT OF MYOCARDIAL DAMAGE. . Note: Troponin I testing is performed using different testing methodology at [facility] than at other [facility]. Direct result comparisons should only be made within the same method. Performed By: #### T ROP2 ####[facility] [id number] [place] [address] TROPONIN I Canceled Normal [facility] Comment on above: Order Comment: TEST TROPONIN I WAS CANCELLED, 04/15/2021 12:35 Result Comment: LESS THAN 0.04 NG/ML: NEGATIVE REPEAT TESTING IN THREE TO SIX HOURS IF CLINICALLY INDICATED. 0.04 - 0.5 NG/ML: CONSISTENT WITH POSSIBLE CARDIAC DAMAGE AND POSSIBLE INCREASED CLINICAL RISK. SERIAL MEASUREMENTS MAY HELP ASSESS EXTENT OF MYOCARDIAL DAMAGE. >0.5 NG/ML: CONSISTENT WITH CARDIAC DAMAGE, INCREASED CLINICAL RISK AND MYOCARDIAL INFARCTION. SERIAL MEASUREMENTS MAY HELP ASSESS EXTENT OF MYOCARDIAL DAMAGE. . Note: Troponin I testing is performed using different testing methodology at [facility] than at [facility]. Direct result comparisons should only be made within the same method. Performed By: #### T ROP2 ####[facility] [id number] [place] [address] TSHon 04-15-2021 TSH Qn 0.61 m[IU]/L Normal 0.44 - 3.98 [facility] Comment on above: Result Comment: TSH testing is performed using different testing methodology at [facility] than at other [facility]. Direct result comparisons should only be made within the same method. Performed By: #### T SH2 #### [facility] [address]TR [id number] [place] [address] TSH - Thyroid Stimulating Ho rmone, Serumon 04-15-2021 TSH Qn 0.61 m[IU]/L See Below [facility] Work Phone: Comment on above: Reference Range: 0.4 4 - 3.98 TSH testing is performed using different testing methodology at [facility] than [facility]. Direct result comparisons should only be made within the same method. Triage - EDon 04-15-2021 Triage - ED Chart Review: ARRIVAL INFORMATION Mode of Arrival: ambulance Agency Name: [facility] CHIEF COMPLAINT HOSEA ALVAREZ is a Male patient with a chief complaint of chest pain. Other Complaints: Patient arrived to ED with complaint of chest pain x45 minutes. He reports pain in left chest with associated left arm numbness. Triage Date/Time: 15-Apr-2021 12:14 WILMAN: 2 Pain Rating (0-10): 4 = Moderate Pain location: left chest Vital Signs: Temperature: 98.2F ( 36.7C) taken temporal Blood Pressure: 129/89 Mean: Heart Rate: 82 Respiratory Rate: 18 Pulse Oximetry: 99% on room air, no respiratory support. Height: 5 feet 8 inches. 172.7 CM Weight: 187.3 pounds. Calculated 85.0 kg. (stated) Calculated BMI (kg/m2): 28.499 Calculated BSA (m2) 2.02 Lynda Coma Scale: Best Eye Response: (E4) spontaneous Best Motor Response: (M6) obeys commands Best Verbal Response: (V5) oriented Lynda Score: 15 Allergies: yes Patient has homicidal thoughts: no Risk Screens Suicide Risk Screen In the Past Month: Have you wished you were or wished you could go to sleep and not wake up no In the Past Month: Have you had any actual thoughts of killing yourself no In Your Lifetime: Have you ever done anything, started to do anything, or prepared to do anything to end your life no Molina Fall Scale Screening Has the patient fallen before (or is the patient in the ED as a result of a fall) has not had a fall Does the patient have an impaired gait does not have impaired gait Is the patient cognitively impaired not cognitively impaired Interventions: Molina Fall Interventions: LOW INTERVENTIONS: *patient oriented to surroundings and call system, * patient/family falls education completed and documented, *patients fall status communicated during bedside handoff, *whiteboard updated, *mode of toileting discussed with patient, *bed in low position with brakes locked, *call light in reach, * non-skid footwear TRAVEL HISTORY Travel History Coronavirus Screening: no exposure or symptoms Travel Exposure History: NO travel to International locations in the past 30 days PAIN Pain Scale Used: SHANNON Pain Rating (0-10): 4 = Moderate Past Medical History: Past Medical History Reviewedyes Electronic Signatures: Stefano Garcia ([place]) (Signed 15-Apr-2021 12:17) Authored: Quick Triage, Risk Screens, Pain, Travel History, Chart Review, Scores, Past Medical History Last Updated: 15-Apr-2021 12:17 by Stefano Garcia ([place]) Normal [facility] Troponin I, Serumon 04-15-20 21 Troponin I.cardiac [Mass/Vol] ng/mL See Below [facility] Work Phone: Comment on above: Reference Range: 0.0 0 - 0.03LESS THAN 0.04 NG/ML: NEGATIVEREPEAT TESTING IN THREE TO SIX HOURSIF CLINICALLY INDICATED.0.04 - 0.5 NG/ML: CONSISTENT WITH POSSIBLECARDIAC DAMAGE AND POSSIBLE INCREASEDCLINICAL RISK.SERIAL MEASUREMENTS MAY HELP ASSESS EXTENT OFMYOCARDIAL DAMAGE.>0.5 NG/ML: CONSISTENT WITH CARDIAC DAMAGE,INCREASED CLINICAL RISK AND MYOCARDIALINFARCTION. SERIAL MEASUREMENTS MAY HELPASSESS EXTENT OF MYOCARDIAL DAMAGE..Note: Troponin I testing is performed using different testing methodology at [facility] than at other [facility]. Direct result comparisons should only be made within the same method. CBC AND DIFFERENTIALon 04-13 % AUTOMATED IMMATURE GRAN 0.3 % Normal 0.0 - 0.9 [facility] Comment on above: Result Comment: Kath ture Granulocyte Count (IG) includes promyelocytes, myelocytes and metamyelocytes but does not include bands. Percent differential counts (%) should be interpreted in the context of the absolute cell counts (cells/L). Performed By: #### C BCDF ####[facility] [id number] [place] [address] Basophils (Bld) [#/Vol] 0.02 10*3/uL Normal 0.00 - 0.10 [facility] Comment on above: Performed By: #### C BCDF ####[facility] [id number] [place] [address] Basophils/100 WBC (Bld) 0.5 % Normal 0.0 - 2.0 [facility] Comment on above: Performed By: #### C BCDF ####[id number] [place] [id number] Eosinophils (Bld) [#/Vol] 0.09 10*3/uL Normal 0.00 - 0.70 [facility] Comment on above: Performed By: #### C BCDF ####[id number] [place] [address] Eosinophils/100 WBC (Bld) 2.4 % Normal 0.0 - 6.0 [facility] Comment on above: Performed By: #### C BCDF ####[id number] [place] [id number] Erythrocyte distribution width (RBC) [Ratio] 13.4 % Normal 11.5 - 14.5 [facility] Comment on above: Performed By: #### C BCDF ####[id number] [place] [id number] Hematocrit (Bld) [Volume fraction] 38.8 % Low 41.0 - 52.0 [facility] Comment on above: Performed By: #### C BCDF ####[id number] [place] [address] Hemoglobin (Bld) [Mass/Vol] 12.6 g/dL Low 13.5 - 17.5 [facility] Comment on above: Performed By: #### C BCDF ####[facility] [id number] [place] [id number] Lymphocytes (Bld) [#/Vol] 1.19 10*3/uL Low 1.20 - 4.80 [facility] Comment on above: Performed By: #### C BCDF ####[id number] [place] [address] Lymphocytes/100 WBC (Bld) 31.9 % Normal 13.0 - 44.0 [facility] Comment on above: Performed By: #### C BCDF ####[facility] [place] [address] MCHC (RBC) [Mass/Vol] 32.5 g/dL Normal 32.0 - 36.0 [facility] Comment on above: Performed By: #### C BCDF ####[facility] [id number] [place] [address] MCV (RBC) [Entitic vol] 86 fL Normal 80 - 100 [facility] Comment on above: Performed By: #### C BCDF ####[facility] [id number] [place] [address] Monocytes (Bld) [#/Vol] 0.38 10*3/uL Normal 0.10 - 1.00 [facility] Comment on above: Performed By: #### C BCDF ####[id number] [place] [address] Monocytes/100 WBC (Bld) 10.2 % Normal 2.0 - 10.0 [facility] Comment on above: Performed By: #### C BCDF ####[facility] [id number] [place] [address] Neutrophils (Bld) [#/Vol] 2.04 10*3/uL Normal 1.20 - 7.70 [facility] Comment on above: Performed By: #### C BCDF ####[facility] [id number] [place] [address] Neutrophils/100 WBC (Bld) 54.7 % Normal 40.0 - 80.0 [facility] Comment on above: Performed By: #### C BCDF ####[facility] [id number] [place] [address] Platelets (Bld) [#/Vol] 142 10*3/uL Low 150 - 450 [facility] Comment on above: Performed By: #### C BCDF ####[facility] [id number] [place] [address] RBC 4.52 x10E12/L Normal 4.50 - 5.90 [facility] Comment on above: Performed By: #### C BCDF ####[facility] [id number] [place] [id number] WBC (Bld) [#/Vol] 3.7 10*3/uL Low 4.4 - 11.3 [facility] Comment on above: Performed By: #### C BCDF ####[facility] [id number] [place] [id number] CHEST 2 VIEW PA AND LATon CHEST 2 VIEW PA AND LAT Patient Name: HOSEA ALVAREZ STUDY: TH CHEST 2 VIEW PA AND LAT; 04/13/2021 5:28 pm INDICATION: cp, abd pain. COMPARISON: Chest radiograph 04/12/21 ACCESSION NUMBER(S): [id number] ORDERING CLINICIAN: AMANDA CHOUDHARY FINDINGS: CARDIOMEDIASTINAL SILHOUETTE: Cardiomediastinal silhouette is stable in size and configuration. LUNGS: No interval consolidation or pneumothorax. ABDOMEN: No remarkable upper abdominal findings. BONES: No acute osseous changes. IMPRESSION: 1. No evidence of acute cardiopulmonary process. Electronically signed by: DEDRICK ANGUIANO MD Normal [facility] COMPREHENSIVE PANELon 2020 Albumin [Mass/Vol] 4.5 g/dL Normal 3.4 - 5.0 [facility] Comment on above: Performed By: #### C MP ####[facility] [id number] [place] [id number] ALP [Catalytic activity/Vol] 47 U/L Normal 33 - 120 [facility] Comment on above: Performed By: #### C MP ####[facility] [place] [id number] ALT [Catalytic activity/Vol] 15 U/L Normal 10 - 52 [facility] Comment on above: Result Comment: Yanni ents treated with Sulfasalazine may generate falsely decreased results for ALT. Performed By: #### C MP ####[facility] [place] [id number] Anion gap [Moles/Vol] 16 mmol/L Normal 10 - 20 [facility] Comment on above: Performed By: #### C MP ####[facility] [place] [id number] AST [Catalytic activity/Vol] 17 U/L Normal 9 - 39 [facility] Comment on above: Performed By: #### C MP ####[id number] [place] [address] Bilirubin [Mass/Vol] 0.4 mg/dL Normal 0.0 - 1.2 [facility] Comment on above: Performed By: #### C MP ####[facility] [place] [id number] Calcium [Mass/Vol] 9.2 mg/dL Normal 8.6 - 10.3 [facility] Comment on above: Performed By: #### C MP ####[facility] [place] [id number] Chloride [Moles/Vol] 102 mmol/L Normal 98 - 107 [facility] Comment on above: Performed By: #### C MP ####[facility] [place] [id number] Creatinine [Mass/Vol] 0.80 mg/dL Normal 0.50 - 1.30 [facility] Comment on above: Performed By: #### C MP ####[facility] [place] [id number] GFR- AM. >60 Normal >60 [facility] Comment on above: Result Comment: CALC ULATIONS OF ESTIMATED GFR ARE PERFORMED USING THE MDRD STUDY EQUATION FOR THE IDMS-TRACEABLE CREATININE METHODS. CLIN CHEM 2007;53:766-72 Performed By: #### C MP ####[facility] [id number] [place] [id number] GFR-NON AM. >60 Normal >60 [facility] Comment on above: Performed By: #### C MP ####[facility] [place] [id number] Glucose [Mass/Vol] 83 mg/dL Normal 74 - 99 [facility] Comment on above: Performed By: #### C MP ####[facility] [place] [id number] HCO3 (Bld) [Moles/Vol] 24 mmol/L Normal 21 - 32 [facility] Comment on above: Performed By: #### C MP ####[facility] [id number] [place] [address] Potassium [Moles/Vol] 3.6 mmol/L Normal 3.5 - 5.3 [facility] Comment on above: Performed By: #### C MP ####[facility] [id number] [place] [address] Protein [Mass/Vol] 7.0 g/dL Normal 6.4 - 8.2 [facility] Comment on above: Performed By: #### C MP ####[facility] [place] [id number] Sodium [Moles/Vol] 138 mmol/L Normal 136 - 145 [facility] Comment on above: Performed By: #### C MP ####[facility] [id number] [place] [id number] Urea nitrogen [Mass/Vol] 11 mg/dL Normal 6 - 23 [facility] Comment on above: Performed By: #### C MP ####[facility] [id number] [place] [id number] Complete Blood Count + Diffe neiltialon 04-13-2021 Basophils/100 WBC (Bld) 0.5 % 0.0 - 2.0 [facility] Work Phone: [phone] Erythrocyte distribution width (RBC) [Ratio] 13.4 % See Below [facility] I Work Phone: Comment on above: Reference Range: 11. 5 - 14.5 Hematocrit (Bld) [Volume fraction] 38.8 % below low threshold See Below [facility] Work Phone: Comment on above: Reference Range: 41. 0 - 52.0 Hemoglobin (Bld) [Mass/Vol] 12.6 g/dL below low threshold See Below [facility] 6 I Work Phone: Comment on above: Reference Range: 13. 5 - 17.5 Lymphocytes/100 WBC (Bld) 31.9 % See Below [facility] Work Phone: Comment on above: Reference Range: 13. 0 - 44.0 MCHC (RBC) [Mass/Vol] 32.5 g/dL See Below [facility] Work Phone: [phone] Comment on above: Reference Range: 32. 0 - 36.0 MCV (RBC) [Entitic vol] 86 fL 80 - 100 [facility] Work Phone: [phone] Monocytes/100 WBC (Bld) 10.2 % 2.0 - 10.0 [facility] Work Phone: [phone] Neutrophils/100 WBC (Bld) 54.7 % See Below [facility] Work Phone: Comment on above: Reference Range: 40. 0 - 80.0 Platelets (Bld) [#/Vol] 142 10*3/uL below low threshold 150 - 450 [facility] Work Phone: [phone] RBC (Bld) [#/Vol] 4.52 {x10E12/L} See Below [facility] Work Phone: Comment on above: Reference Range: 4.5 0 - 5.90 WBC (Bld) [#/Vol] 3.7 10*3/uL below low threshold 4.4 - 11.3 [facility] Work Phone: Complete Blood Count + Differential 0.02 {x10E9/L} See Below [facility] Work Phone: Comment on above: Reference Range: 0.0 0 - 0.10 Complete Blood Count + Differential 0.09 {x10E9/L} See Below [facility] 6 I Work Phone: Comment on above: Reference Range: 0.0 0 - 0.70 Complete Blood Count + Differential 0.38 {x10E9/L} See Below [facility] I Work Phone: Comment on above: Reference Range: 0.1 0 - 1.00 Complete Blood Count + Differential 1.19 {x10E9/L} below low threshold See Below [facility] I Work Phone: Comment on above: Reference Range: 1.2 0 - 4.80 Complete Blood Count + Differential 2.04 {x10E9/L} See Below [facility] Work Phone: Comment on above: Reference Range: 1.2 0 - 7.70 Complete Blood Count + Differential 2.4 % 0.0 - 6.0 [facility] Work Phone: Complete Blood Count + Differential 0.3 % 0.0 - 0.9 [facility] Work Phone: Comment on above: Immature Granulocyte Count (IG) includes promyelocytes, myelocytes and metamyelocytes but does not include bands. Percent differential counts (%) should be interpreted in the context of the absolute cell counts (cells/L). LACTATEon 04-13-2021 Lactate [Moles/Vol] 1.5 mmol/L Normal 0.4 - 2.0 [facility] Comment on above: Result Comment: Jocelyn puncture immediately after or during the administration of Metamizole may lead to falsely low results. Testing should be performed immediately prior to Metamizole dosing. Performed By: #### L ACT ####[facility] [id number] [place] [address] LIPASEon 04-13-2021 Lipase [Catalytic activity/Vol] 15 U/L Normal 9 - 82 [facility] Comment on above: Result Comment: Jocelyn puncture immediately after or during the administration of Metamizole may lead to falsely low results. Testing should be performed immediately prior to Metamizole dosing. E-ltoxqr-y-benzoquinone imine (metabolite of Acetaminophen) will generate erroneously low results in samples for patients that have taken toxic doses of acetaminophen. Performed By: #### L IPAS ####[facility] [id number] [place] [address] Laboratory - Chemistry and C hemistry - challengeon 04-13-2021 Albumin BCP dye [Mass/Vol] 4.5 g/dL 3.4 - 5.0 [facility] Work Phone: [phone] ALP [Catalytic activity/Vol] 47 U/L 33 - 120 [facility] Work Phone: [phone] ALT With P-5'-P [Catalytic activity/Vol] 15 U/L 10 - 52 [facility] Work Phone: [phone] Comment on above: Patients treated wit h Sulfasalazine may generate falsely decreased results for ALT. Anion gap [Moles/Vol] 16 mmol/L 10 - 20 [facility] Work Phone: [phone] AST With P-5'-P [Catalytic activity/Vol] 17 U/L 9 - 39 [facility] Work Phone: [phone] Bilirubin [Mass/Vol] 0.4 mg/dL 0.0 - 1.2 [facility]ro[facility]logy-[facility]ol[facility] l 6 [facility] Work Phone: Calcium [Mass/Vol] 9.2 mg/dL 8.6 - 10.3 [facility] tro[facility]y-[facility]ol[facility]el l 6 [facility] Work Phone: Chloride [Moles/Vol] 102 mmol/L 98 - 107 [facility]ro[facility]log[facility]-Bolwel l 6 I Work Phone: [phone] CO2 [Moles/Vol] 24 mmol/L 21 - 32 [facility] Work Phone: [phone] Creatinine [Mass/Vol] 0.80 mg/dL See Below [facility] 6 I Work Phone: [phone] Comment on above: Reference Range: 0.5 0 - 1.30 Glucose [Mass/Vol] 83 mg/dL 74 - 99 [facility] 6 I Work Phone: [phone] Potassium [Moles/Vol] 3.6 mmol/L 3.5 - 5.3 [facility] Work Phone: [phone] Protein [Mass/Vol] 7.0 g/dL 6.4 - 8.2 [facility] I Work Phone: [phone] Sodium [Moles/Vol] 138 mmol/L 136 - 145 [facility] Work Phone: [phone] Urea nitrogen [Mass/Vol] 11 mg/dL 6 - 23 [facility] Work Phone: Lactate, Levelon 04-13-2021 Lactate [Moles/Vol] 1.5 mmol/L 0.4 - 2.0 [facility] stro[facility]ol[facility] l 6 I Work Phone: Comment on above: Venipuncture immedia tely after or during the administration of Metamizole may lead to falsely low results. Testing should be performed immediately prior to Metamizole dosing. Lipase, Serumon 04-13-2021 Lipase [Catalytic activity/Vol] 15 U/L 9 - 82 [facility] Work Phone: Comment on above: Venipuncture immedia tely after or during the administration of Metamizole may lead to falsely low results. Testing should be performed immediately prior to Metamizole dosing. E-kakgxs-w-benzoquinone imine (metabolite of Acetaminophen) will generate erroneously low results in samples for patients that have taken toxic doses of acetaminophen. No Panel Informationon 04-13 >60 >60 [facility] Work Phone: Comment on above: CALCULATIONS OF NIKOLE MATED GFR ARE PERFORMED USING THE MDRD STUDY EQUATION FOR THE IDMS-TRACEABLE CREATININE METHODS. CLIN CHEM 2007;53:766-72 [email or web address]?RetrieveTestByDateTim e?NcoauskZQ=[email or web address]&Da te=13-04-2021&Time=15%3a 22%3a02%3a00&TestType=EC G&Site=2&OutputType=PDF& Ext=PDF [facility] Work Phone: Normal sinus rhythm [facility] Work Phone: Abnormal [facility] Work Phone: [phone] [facility] Work Phone: [phone] 1 [facility] Work Phone: [phone] [facility] Work Phone: [phone] [facility] Work Phone: [phone] 1 [facility] Work Phone: [phone] [facility] Work Phone: [phone] [facility] Work Phone: [phone] [facility] Work Phone: [phone] [facility] Work Phone: [phone] [facility] Work Phone: [phone] [facility] Work Phone: [phone] [facility] Work Phone: Provider Note - ED Care Reyes sitionon 04-13-2021 Provider Note - ED Care Transition ED Care Transition: Chart Review: ED NOTES ED NOTES: Mr. Alvarez is a 50-year-old presenting with chest pain. He was received in signout from Dr. Youngblood. Please see her note for all HPI, physical exam, and medical decision making at the time of signout at approximately 9 PM. Time signout we are awaiting second troponin. Repeat EKG was interpreted by myself reveals normal sinus rhythm with a normal axis, normal PA and QT intervals, no ST segment elevations or depressions. Repeat troponin was negative. He was discharged with PCP follow-up and given strict return precautions which he verbalized understanding of. Very low suspicion for ACS given the nature of his pain and negative troponins and EKGs. He has been worked up multiple times previously for this. He is PERC negative and I do not suspect PE. CLINICAL IMPRESSION Diagnosis/Annotation: ED Dx Name:Chest pain Code:R07.9 Disposition: discharged ATTESTATION CRITICAL CARE TIME Is this a critically ill patient: no Electronic Signatures: Malou Lomax) (Signed 12-Apr-2021 22:36) Authored: ED Notes, Clinical Impression, Attestation, Chart Review, Scores Last Updated: 12-Apr-2021 22:36 by Malou Lomax) Normal [facility] Provider Note - ED v2on 03-24 Provider Note - ED v2 Provider Note - ED v2: Chart Review: ED NOTES ED NOTES: CC: abd pain, dysphagia, chest pain HPI: Patient is a 50-year-old male with past medical history of bipolar, hypertension, renal artery stenosis, 4.5cm ascending thoracic aneurysm p/w multiple complaints including chest pain, abdominal pain and dysphagia. Patient has been seen in the ED multiple times over the past 2 weeks including yesterday with same complaint. Patient reports some intermittent chest pain of his chest, but none at this time. He had similar complaint yesterday and had negative troponins and EKG so was sent home. His pain is nonradiating, nonexertional, nonpleuritic. Not associated with shortness of breath. No cough or fever. Patient also reports some epigastric pain when he swallows food. States he feels like it gets stuck around that area and then proceeds though. He is not having nausea or vomiting. He is able to tolerate p.o. intake. He is scheduled to see GI as an outpatient in April for an EGD. He has had prior CAT scans to evaluate for his aneurysm including 10 days ago which showed stable size. He also does not want any further CAT scans due to concern for cancer caused by the radiation. He is asymptomatic at this time. ROS: A 14 pt ROS was completed and is otherwise negative unless mentioned above. Nursing note and triage review of systems reviewed, and any discrepancy noted is reflecting patient interaction and their own report of symptoms. PMHx: above FamilyHx: Reviewed, noncontributory to today's event SocialHx: Reviewed, denies drug or significant etoh use Allergies: Reviewed Medications: Reviewed. See Medication Reconciliation Physical Exam Appearance: Alert, oriented x3, cooperative, in no acute distress. Well nourished & well hydrated. Skin: Intact, dry skin, no lesions, rash, petechiae or purpura. Eyes: PERRLA, EOMs intact, Conjunctiva pink with no redness or exudates. Eyelids without lesions. No scleral icterus. ENT: Hearing grossly intact. Patent oronasopharynx. MMM Neck: Supple, without meningismus. Thyroid not palpable. Trachea at midline. No lymphadenopathy. Pulmonary: Clear bilaterally with good chest wall excursion. No rales, rhonchi or wheezing. No accessory muscle use or stridor. Cardiac: Normal S1, S2 without murmur, rub, gallop or extrasystole. No JVD, Carotids without bruits. Abdomen: Soft, nontender, active bowel sounds. No palpable organomegaly. No rebound or guarding. Genitourinary: Exam deferred. Musculoskeletal: Full range of motion. Pulses full and equal. No cyanosis, clubbing. No LE edema. Neurological: Cranial nerves II through XII are grossly intact, normal sensation, no weakness, no focal findings identified. Psychiatric: Anxious, otherwise Appropriate mood and affect. Nursing Assessment and Vitals Reviewed EKG: NSR, normal rate, normal axis, normal intervals, minimal LACI in leads I, aVL with ST depression and T inv in lead III, all unchanged from prior ekg, no ST or T changes to suggest acute ischemia or infarction HISTORY OF PRESENTING ILLNESS HOSEA is a 50 year old Male and was seen by me at 13-Apr-2021 15:27 for a chief complaint of chest pain . Other complaints include: [facility] c/o chest pain that the patient rated 8/10 [employer]. currently rates 0/10. EKG performed, to MD Choudhary who is bedside. No active s/s of distress. VSS. . Triage Information: Most recent Vital Sign Value Date Temp (F): 97.2 04-13-2021 15:30 Temp (C): 36.2 04-13-2021 15:30 Heart Rate (beats/min): 73 04-13-2021 15:30 Respirations (breaths/min): 17 04-13-2021 15:30 SpO2 (%): 100 04-13-2021 15:30 BP Systolic (mm Hg): 115 04-13-2021 15:30 BP Diastolic (mm Hg): 79 04-13-2021 15:30 PAST MEDICAL HISTORY ATTESTATION: I have reviewed and confirmed nurse's/medic's notes for patient's medications, allergies, and medical, surgical, family and social history ALLERGIES/INTOLERANCES: Allergy Allergen: Erythromycin Base Type: Drug Reaction: Unknown Allergen: caffine Type: Food Reaction: Other Allergen: Cipro Type: Drug Reaction: Unknown Intolerance Allergen: polyethylene glycol 3350 Type: Drug Reaction: GI Upset HEALTH HISTORY: Family History Name:No family history of cancer Code:Z78.9 Name:No family history of coronary artery disease Code:Z78.9 Medical History Name:Chest pain Code:R07.9 Name:Renal artery stenosis Code:I70.1 Name:Pulmonary embolism Code:I26.99 Name:History of COVID-19 Code:Z86.16 Name:Ascending aortic aneurysm Code:I71.2 Name:Bipolar disorder Code:F31.9 Name:Palpitations Code:R00.2 Social History Name:Homeless Code:Z59.0 Name:Does not use illicit drugs Code:Z78.9 Name:Consumes alcohol occasionally Code:Z78.9 Name:Former smoker Code:Z87.891 OUTPATIENT MEDICATIONS: Home Medications Review Status for Reconciliation: N/A Med Status: Pa (more content not included)... Normal [facility] Radiologyon 04-13-2021 XR Chest 2 Views Normal [facility] Work Phone: Risk Screen - Adult Emergenc yon 04-13-2021 Risk Screen - Adult Emergency Preferred Language: Preferred Language: Preferred Language for Discussing Health Care (patient/designee)Fran villalta Advanced Directives: Advance Directive/DNRno Family Violence Adult: Abuse Screen: Are you or have you been threatened or abused physically, emotionally, or sexually by anyoneno Learning Assessment (Patient): Learning Assessment (Patient): Patient is Able to be Assessed for Learningyes Factors Influencing Readiness to Learninterest in learning; motivation lacking; pain Factors that Impact Ability to Learnnone Devices/Methods Used to Communicatenone Learning Preferencesverbal instruction Cultural Considerationsnone Developmental Considerationsnone Zoroastrian Considerationsnone Learning Assessment (Other Learner): Learning Assessment (Other Learner): Other learner availableno Pressure Injury/TB/Substance: Pressure Injury: Do you have a coughno Smoking Statusformer smoker Admission Risk Screen: Significant IndicatorsComplete CAGE: CAGE: Is this an injured patient at a Trauma Center ([facility]/[place] /[place]): no Electronic Signatures: Mahsa Glover (RN) (Signed 13-Apr-2021 16:25) Authored: Preferred Language, Advanced Directives, Family Violence Adult, Learning Assessment (Patient), Learning Assessment (Other Learner), Pressure Injury/TB/Substance, Pressure Injury, CAGE Last Updated: 13-Apr-2021 16:25 by Mahsa Glover ([place]) Normal [facility] TROPONIN Ion 04-13-2021 Troponin I.cardiac [Mass/Vol] ng/mL Normal 0.00 - 0.03 [facility] Comment on above: Result Comment: LESS THAN 0.04 NG/ML: NEGATIVE REPEAT TESTING IN THREE TO SIX HOURS IF CLINICALLY INDICATED. 0.04 - 0.5 NG/ML: CONSISTENT WITH POSSIBLE CARDIAC DAMAGE AND POSSIBLE INCREASED CLINICAL RISK. SERIAL MEASUREMENTS MAY HELP ASSESS EXTENT OF MYOCARDIAL DAMAGE. >0.5 NG/ML: CONSISTENT WITH CARDIAC DAMAGE, INCREASED CLINICAL RISK AND MYOCARDIAL INFARCTION. SERIAL MEASUREMENTS MAY HELP ASSESS EXTENT OF MYOCARDIAL DAMAGE. . Note: Troponin I testing is performed using different testing methodology at [facility] than at other [facility]. Direct result comparisons should only be made within the same method. Performed By: #### T ROP2 ####[facility] [place] [address] TROPONIN I Canceled Normal [facility] Comment on above: Order Comment: TEST TROPONIN I WAS CANCELLED, 04/13/2021 11:34 Result Comment: LESS THAN 0.04 NG/ML: NEGATIVE REPEAT TESTING IN THREE TO SIX HOURS IF CLINICALLY INDICATED. 0.04 - 0.5 NG/ML: CONSISTENT WITH POSSIBLE CARDIAC DAMAGE AND POSSIBLE INCREASED CLINICAL RISK. SERIAL MEASUREMENTS MAY HELP ASSESS EXTENT OF MYOCARDIAL DAMAGE. >0.5 NG/ML: CONSISTENT WITH CARDIAC DAMAGE, INCREASED CLINICAL RISK AND MYOCARDIAL INFARCTION. SERIAL MEASUREMENTS MAY HELP ASSESS EXTENT OF MYOCARDIAL DAMAGE. . Note: Troponin I testing is performed using different testing methodology at [facility] than at other [facility]. Direct result comparisons should only be made within the same method. Performed By: #### T ROP2 ####[facility] [id number] [place] [address] Troponin I.cardiac [Mass/Vol] ng/mL Normal 0.00 - 0.03 [facility] Comment on above: Result Comment: LESS THAN 0.04 NG/ML: NEGATIVE REPEAT TESTING IN THREE TO SIX HOURS IF CLINICALLY INDICATED. 0.04 - 0.5 NG/ML: CONSISTENT WITH POSSIBLE CARDIAC DAMAGE AND POSSIBLE INCREASED CLINICAL RISK. SERIAL MEASUREMENTS MAY HELP ASSESS EXTENT OF MYOCARDIAL DAMAGE. >0.5 NG/ML: CONSISTENT WITH CARDIAC DAMAGE, INCREASED CLINICAL RISK AND MYOCARDIAL INFARCTION. SERIAL MEASUREMENTS MAY HELP ASSESS EXTENT OF MYOCARDIAL DAMAGE. . Note: Troponin I testing is performed using different testing methodology at [facility] than at other [facility]. Direct result comparisons should only be made within the same method. Performed By: #### T ROP2 ####[facility] [id number] [place] [address] Triage - EDon 04-13-2021 Triage - ED Quick Triage: The patient and/or guardian verbally acknowledges placement for services into the following (when Urgent Care Service hours are operating):emergency department Chart Review: ARRIVAL INFORMATION Mode of Arrival: ambulance Agency: City Agency Name: [facility] CHIEF COMPLAINT HOSEA ALVAREZ is a Male patient with a chief complaint of chest pain. Onset of the Complaint: 13-Apr-2021 12:00 Other Complaints: [facility] c/o chest pain that the patient rated 8/10 [employer]. currently rates 0/10. EKG performed, to MD Choudhary who is bedside. No active s/s of distress. VSS. Triage Date/Time: 13-Apr-2021 15:30 WILMAN: 2 Pain Rating (0-10): 0 = None Vital Signs: Temperature: 97.2F ( 36.2C) taken temporal Blood Pressure: 115/79 Mean: Heart Rate: 73 Respiratory Rate: 17 Pulse Oximetry: 100% on room air, no respiratory support. Height: 5 feet 6 inches. 167.6 CM Weight: 190.2 pounds. Calculated 86.3 kg. Calculated BMI (kg/m2): 30.722 Calculated BSA (m2) 2.00 Lynda Coma Scale: Best Eye Response: (E4) spontaneous Best Motor Response: (M6) obeys commands Best Verbal Response: (V5) oriented [place] Score: 15 Cough lasting greater than 3 weeks: no Patient immunocompromised related to: N/A Allergies: yes Patient has homicidal thoughts: no Symptoms Are POSITIVE For: anxiety and pain Symptoms Are Negative For: chills, diaphoresis, dyspnea, headache, loss of consciousness, nausea, numbness, tingling and weakness Chest Pain Location-Right: upper chest Risk Screens Suicide Risk Screen In the Past Month: Have you wished you were or wished you could go to sleep and not wake up no In the Past Month: Have you had any actual thoughts of killing yourself no In Your Lifetime: Have you ever done anything, started to do anything, or prepared to do anything to end your life no Molina Fall Scale Screening Has the patient fallen before (or is the patient in the ED as a result of a fall) has not had a fall Does the patient have an impaired gait does not have impaired gait Is the patient cognitively impaired not cognitively impaired Interventions: Molina Fall Interventions: LOW INTERVENTIONS: *patient oriented to surroundings and call system, * patient/family falls education completed and documented, *patients fall status communicated during bedside handoff, *whiteboard updated, *mode of toileting discussed with patient, *bed in low position with brakes locked, *call light in reach, * non-skid footwearMODERATE INTERVENTIONS: *Low Interventions Plus: * falls risk band/sticker applied to patient, *yellow non-skid footwear, *instruct to call for assistance before getting out of bed, *bed/chair/bedside commode/toilet alarms, *sensory devices/ambulatory aides available and in reach, *medications reviewed for potential side effects and care planning. and HIGH INTERVENTIONS *Low and Moderate Interventions Plus: * supervised toileting at all times TRAVEL HISTORY Travel History Coronavirus Screening: no exposure or symptoms Travel Exposure History: NO travel to International locations in the past 30 days PAIN Pain Scale Used: SHANNON Pain Rating (0-10): 0 = None Past Medical History: Past Medical History Reviewedyes Electronic Signatures: Mahsa Glover (RN) (Signed 13-Apr-2021 15:33) Authored: Quick Triage, Risk Screens, Pain, Travel History, Chart Review, Scores, Past Medical History Last Updated: 13-Apr-2021 15:33 by Mahsa Glover (RN) Normal [facility] Troponin I, Serumon 04-13-20 21 Troponin I.cardiac [Mass/Vol] ng/mL See Below [facility] Work Phone: Comment on above: Reference Range: 0.0 0 - 0.03LESS THAN 0.04 NG/ML: NEGATIVEREPEAT TESTING IN THREE TO SIX HOURSIF CLINICALLY INDICATED.0.04 - 0.5 NG/ML: CONSISTENT WITH POSSIBLECARDIAC DAMAGE AND POSSIBLE INCREASEDCLINICAL RISK.SERIAL MEASUREMENTS MAY HELP ASSESS EXTENT OFMYOCARDIAL DAMAGE.>0.5 NG/ML: CONSISTENT WITH CARDIAC DAMAGE,INCREASED CLINICAL RISK AND MYOCARDIALINFARCTION. SERIAL MEASUREMENTS MAY HELPASSESS EXTENT OF MYOCARDIAL DAMAGE..Note: Troponin I testing is performed using different testing methodology at [facility] than at other [facility]. Direct result comparisons should only be made within the same method. BASIC METABOLIC PANELon - Anion gap [Moles/Vol] 11 mmol/L Normal 10 - 20 [facility] Comment on above: Performed By: #### B MP ####[facility] [id number] [place] [address] Calcium [Mass/Vol] 8.9 mg/dL Normal 8.6 - 10.3 [facility] Comment on above: Performed By: #### B MP ####[facility] [id number] [place] [address] Chloride [Moles/Vol] 104 mmol/L Normal 98 - 107 [facility] Comment on above: Performed By: #### B MP ####[facility] [id number] [place] [address] Creatinine [Mass/Vol] 0.90 mg/dL Normal 0.50 - 1.30 [facility] Comment on above: Performed By: #### B MP ####[facility] [id number] [place] [address] GFR- AM. >60 Normal >60 [facility] Comment on above: Result Comment: CALC ULATIONS OF ESTIMATED GFR ARE PERFORMED USING THE MDRD STUDY EQUATION FOR THE IDMS-TRACEABLE CREATININE METHODS. CLIN CHEM 2007;53:766-72 Performed By: #### B MP ####[facility] [id number] [place] [address] GFR-NON AM. >60 Normal >60 [facility] Comment on above: Performed By: #### B MP ####[facility] [id number] [place] [address] Glucose [Mass/Vol] 100 mg/dL High 74 - 99 [facility] Comment on above: Performed By: #### B MP ####[facility] [id number] [place] [address] HCO3 (Bld) [Moles/Vol] 27 mmol/L Normal 21 - 32 [facility] Comment on above: Performed By: #### B MP ####[facility] [id number] [place] [address] Potassium [Moles/Vol] 4.1 mmol/L Normal 3.5 - 5.3 [facility] Comment on above: Result Comment: MILD HEMOLYSIS DETECTED. The result may be falsely elevated due to hemolysis or other interferents. Clinical correlation is recommended. Repeat testing may be considered. Performed By: #### B MP ####[facility] [id number] [place] [address] Sodium [Moles/Vol] 138 mmol/L Normal 136 - 145 [facility] Comment on above: Performed By: #### B MP ####[facility] [id number] [place] [address] Urea nitrogen [Mass/Vol] 14 mg/dL Normal 6 - 23 [facility] Comment on above: Performed By: #### B MP ####[facility] [id number] [place] [address] BNPon 04-12-2021 Natriuretic peptide B (Bld) [Mass/Vol] 34 pg/mL Normal 0 - 99 [facility] Comment on above: Result Comment: . <1 00 pg/mL - Heart failure unlikely 100-299 pg/mL - Intermediate probability of acute heart . failure exacerbation. Correlate with clinical . context and patient history. >=300 pg/mL - Heart Failure likely. Correlate with clinical . context and patient history. BNP testing is performed using different testing methodology at [facility] than at other [facility]. Direct result comparisons should only be made within the same method. Performed By: #### B NP2 ####[facility] [id number] [place] [address] Blood Pressure Cuff Sizeon 0 04-12-2021 Fall risk assessment a) No falls within the last year [facility] Work Phone: Tobacco use status CPHS b) No [facility] [facility] [place] Work Phone: Blood Pressure Cuff Size Large [facility] [facility] [place] Work Phone: CBC AND DIFFERENTIALon 04-12 % AUTOMATED IMMATURE GRAN 0.3 % Normal 0.0 - 0.9 [facility] Comment on above: Result Comment: Kath ture Granulocyte Count (IG) includes promyelocytes, myelocytes and metamyelocytes but does not include bands. Percent differential counts (%) should be interpreted in the context of the absolute cell counts (cells/L). Performed By: #### C BCDF ####[facility] [id number] [place] [address] Basophils (Bld) [#/Vol] 0.02 10*3/uL Normal 0.00 - 0.10 [facility] Comment on above: Performed By: #### C BCDF ####[facility] [id number] [place] [address] Basophils/100 WBC (Bld) 0.6 % Normal 0.0 - 2.0 [facility] Comment on above: Performed By: #### C BCDF ####[facility] [id number] [place] [address] Eosinophils (Bld) [#/Vol] 0.09 10*3/uL Normal 0.00 - 0.70 [facility] Comment on above: Performed By: #### C BCDF ####[facility] [id number] [place] [address] Eosinophils/100 WBC (Bld) 2.5 % Normal 0.0 - 6.0 [facility] Comment on above: Performed By: #### C BCDF ####[facility] [id number] [place] [address] Erythrocyte distribution width (RBC) [Ratio] 13.5 % Normal 11.5 - 14.5 [facility] Comment on above: Performed By: #### C BCDF ####[facility] [id number] [place] [address] Hematocrit (Bld) [Volume fraction] 38.4 % Low 41.0 - 52.0 [facility] Comment on above: Performed By: #### C BCDF ####[facility] [id number] [place] [address] Hemoglobin (Bld) [Mass/Vol] 12.4 g/dL Low 13.5 - 17.5 [facility] Comment on above: Performed By: #### C BCDF ####[facility] [id number] [place] [address] Lymphocytes (Bld) [#/Vol] 0.95 10*3/uL Low 1.20 - 4.80 [facility] Comment on above: Performed By: #### C BCDF ####[facility] [id number] [place] [address] Lymphocytes/100 WBC (Bld) 26.8 % Normal 13.0 - 44.0 [facility] Comment on above: Performed By: #### C BCDF ####[id number] [place] [address] MCHC (RBC) [Mass/Vol] 32.3 g/dL Normal 32.0 - 36.0 [facility] Comment on above: Performed By: #### C BCDF ####[id number] [place] [address] MCV (RBC) [Entitic vol] 86 fL Normal 80 - 100 [facility] Comment on above: Performed By: #### C BCDF ####[id number] [place] [address] Monocytes (Bld) [#/Vol] 0.36 10*3/uL Normal 0.10 - 1.00 [facility] Comment on above: Performed By: #### C BCDF ####[id number] [place] [address] Monocytes/100 WBC (Bld) 10.2 % Normal 2.0 - 10.0 [facility] Comment on above: Performed By: #### C BCDF ####[id number] [place] [address] Neutrophils (Bld) [#/Vol] 2.11 10*3/uL Normal 1.20 - 7.70 [facility] Comment on above: Performed By: #### C BCDF ####[facility] [id number] [place] [address] Neutrophils/100 WBC (Bld) 59.6 % Normal 40.0 - 80.0 [facility] Comment on above: Performed By: #### C BCDF ####[facility] [id number] [place] [address] Platelets (Bld) [#/Vol] 136 10*3/uL Low 150 - 450 [facility] Comment on above: Performed By: #### C BCDF ####[id number] [place] [address] RBC 4.44 x10E12/L Low 4.50 - 5.90 [facility] Comment on above: Performed By: #### C BCDF ####[facility] [id number] [place] [address] WBC (Bld) [#/Vol] 3.5 10*3/uL Low 4.4 - 11.3 [facility] Comment on above: Performed By: #### C BCDF ####[facility] [id number] [place] [address] CHEST 1 VIEWon 04-12-2021 CHEST 1 VIEW Patient Name: HOSEA ALVAREZ STUDY: CHEST 1 VIEW; 04/12/2021 6:52 pm INDICATION: Chest Pain. COMPARISON: April 04, 2021 CT angiogram. April 08, 2021 chest radiograph ACCESSION NUMBER(S): [id number] ORDERING CLINICIAN: DANA SOL FINDINGS: AP portable upright view is submitted. CARDIOMEDIASTINAL SILHOUETTE: Cardiomediastinal silhouette appears similar allowing for difference in position and technique. LUNGS: Mild increased prominence of the lung markings probably at least in part due to technique. Minor basilar platelike atelectasis. No apparent consolidative pneumonia, edema, or effusion. ABDOMEN: No remarkable upper abdominal findings. BONES: No acute osseous changes. IMPRESSION: 1. No evidence of acute cardiopulmonary process. 2. 3. Minor basilar platelike atelectasis. Electronically signed by: SANTA WAY MD Normal [facility] Complete Blood Count + Diffe rentialon 04-12-2021 Basophils/100 WBC (Bld) 0.6 % 0.0 - 2.0 [facility] Work Phone: Erythrocyte distribution width (RBC) [Ratio] 13.5 % See Below [facility] [facility] [employer] Work Phone: Comment on above: Reference Range: 11. 5 - 14.5 Hematocrit (Bld) [Volume fraction] 38.4 % below low threshold See Below -[facility] [facility] Work Phone: Comment on above: Reference Range: 41. 0 - 52.0 Hemoglobin (Bld) [Mass/Vol] 12.4 g/dL below low threshold See Below [facility] Work Phone: Comment on above: Reference Range: 13. 5 - 17.5 Lymphocytes/100 WBC (Bld) 26.8 % See Below [facility] Work Phone: Comment on above: Reference Range: 13. 0 - 44.0 MCHC (RBC) [Mass/Vol] 32.3 g/dL See Below [facility] Work Phone: Comment on above: Reference Range: 32. 0 - 36.0 MCV (RBC) [Entitic vol] 86 fL 80 - 100 [facility] Work Phone: Monocytes/100 WBC (Bld) 10.2 % 2.0 - 10.0 [facility] Work Phone: Neutrophils/100 WBC (Bld) 59.6 % See Below [facility] Work Phone: Comment on above: Reference Range: 40. 0 - 80.0 Platelets (Bld) [#/Vol] 136 10*3/uL below low threshold 150 - 450 [facility] Work Phone: RBC (Bld) [#/Vol] 4.44 {x10E12/L} below low threshold See Below [facility] Work Phone: Comment on above: Reference Range: 4.5 0 - 5.90 WBC (Bld) [#/Vol] 3.5 10*3/uL below low threshold 4.4 - 11.3 [facility] Work Phone: Complete Blood Count + Differential 0.02 {x10E9/L} See Below [facility] Work Phone: Comment on above: Reference Range: 0.0 0 - 0.10 Complete Blood Count + Differential 0.09 {x10E9/L} See Below [facility] Work Phone: Comment on above: Reference Range: 0.0 0 - 0.70 Complete Blood Count + Differential 0.36 {x10E9/L} See Below [facility] Work Phone: Comment on above: Reference Range: 0.1 0 - 1.00 Complete Blood Count + Differential 0.95 {x10E9/L} below low threshold See Below [facility] Work Phone: Comment on above: Reference Range: 1.2 0 - 4.80 Complete Blood Count + Differential 2.11 {x10E9/L} See Below [facility] [employer] Work Phone: Comment on above: Reference Range: 1.2 0 - 7.70 Complete Blood Count + Differential 2.5 % 0.0 - 6.0 [facility] Work Phone: Complete Blood Count + Differential 0.3 % 0.0 - 0.9 [facility] [employer] Work Phone: Comment on above: Immature Granulocyte Count (IG) includes promyelocytes, myelocytes and metamyelocytes but does not include bands. Percent differential counts (%) should be interpreted in the context of the absolute cell counts (cells/L). Laboratory - Chemistry and C hemistry - challengeon 04-12-2021 Anion gap [Moles/Vol] 11 mmol/L 10 - 20 [facility] Work Phone: Calcium [Mass/Vol] 8.9 mg/dL 8.6 - 10.3 [facility] [employer] Work Phone: Chloride [Moles/Vol] 104 mmol/L 98 - 107 [facility] Work Phone: CO2 [Moles/Vol] 27 mmol/L 21 - 32 [facility] Work Phone: Creatinine [Mass/Vol] 0.90 mg/dL See Below [facility] [facility] [employer] Work Phone: Comment on above: Reference Range: 0.5 0 - 1.30 Glucose [Mass/Vol] 100 mg/dL above high threshold 74 - 99 [facility] [employer] [facility] [employer] Work Phone: Potassium [Moles/Vol] 4.1 mmol/L 3.5 - 5.3 [facility] [facility] [employer] Work Phone: Comment on above: MILD HEMOLYSIS DETEC SEBASTIÁN. The result may be falsely elevated due tohemolysis or other interferents. Clinical correlation is recommended.Repeat testing may be considered. Sodium [Moles/Vol] 138 mmol/L 136 - 145 MG-Vas cular Surgery-José Miguel mathews [place] Work Phone: Urea nitrogen [Mass/Vol] 14 mg/dL 6 - 23 MG-Vascular Surgery-José Miguel mathews [place] Work Phone: MAGNESIUMon 04-12-2021 Magnesium [Mass/Vol] 1.90 mg/dL Normal 1.60 - 2.40 [facility] Comment on above: Performed By: #### M ####[facility] [id number] [place] [address] Magnesium, Serumon 1 Magnesium [Mass/Vol] 1.90 mg/dL See Below MG-V ascular Surgery-José Miguel mathews [place] Work Phone: Comment on above: Reference Range: 1.6 0 - 2.40 No Panel Informationon 04-12 [email or web address]?RetrieveTestByDateTim e?BuvrzfyEE=[id number]&Da te=12-04-2021&Time=21%3a 45%3a44%3a00&TestType=EC G&Site=2&OutputType=PDF& Ext=PDF MG-Gastroente rology-[facility] Work Phone: Normal sinus rhythm MG-Ga stroente rology-[facility] Work Phone: [phone] Normal MG-Gastroente rology[facility] Work Phone: [phone] 1 [facility]astroente [facility]logy[facility] Work Phone: [phone] 1 [facility]-Gastroente rology[facility] Work Phone: [phone] 1 [facility]-Gastroente rology[facility] Work Phone: [phone] 1 [facility]-Gastroente rology[facility] Work Phone: [phone] 1 MG-Gastroente rology[facility] Work Phone: [phone] 11 1 MG-Gastroente rology[facility] Work Phone: [phone] 13 1 [facility]-Gastroente [facility] Work Phone: [phone] 12 1 MG-Gastroente rology[facility] Work Phone: [phone] 42 1 [facility]-Gastroente rology[facility] Work Phone: [phone] 1 [facility]-Gastroente [facility]logy[facility] Work Phone: [phone] 1 [facility]-Gastroente rology[facility] Work Phone: [phone] 1 MG-Gastroente rology[facility] Work Phone: [phone] 1 [facility]astro[facility] Work Phone: [phone] 61 1 [facility]Gastroente [facility]logy[facility] Work Phone: [phone] [email or web address]?RetrieveTestByDateTim e?PgbhxjsKY=[id number]&Da te=12-04-2021&Time=19%3a 45%3a57%3a00&TestType=EC G&Site=2&OutputType=PDF& Ext=PDF [facility]-Gastro[facility] Work Phone: [phone] Sinus bradycardia MG-Tyson roente rology-[facility] Work Phone: [phone] Borderline Abnormal MG-Ga stroente rology[facility] Work Phone: [phone] 1 [facility]-Gastroente rology[facility] Work Phone: [phone] 1 MG-Gastroente rology[facility] Work Phone: [phone] 1 MG-Gastroente rology[facility] Work Phone: [phone] 1 MG-Gastroente rology[facility] Work Phone: [phone] 1 MG-Gastroente rology[facility] Work Phone: [phone] 1 MG-Gastroente rology[facility] Work Phone: [phone] 6 1 MG-Gastroente rology[facility] Work Phone: [phone] 2 -3 1 MG-Gastroente rology[facility] Work Phone: [phone] 31 1 MG-Gastroente rology[facility] Work Phone: [phone] 1 MG-Gastroente rology-[facility] Work Phone: [phone] 1 MG-Gastroente rology-[facility] Work Phone: [phone] 1 MG-Gastroente rology-[facility] Work Phone: [phone] 1 MG-Gastroente rology[facility] Work Phone: [phone] 54 1 MG-Gastroente rology[facility] Work Phone: [phone] 34 pg/mL 0 - 99 MG-Vascular Surgery-José Miguel mathews 1800 Work Phone: [phone] Comment on above: . <100 pg/mL - Heart failure -809 pg/mL - Intermediate probability of acute heart. failure exacerbation. Correlate with clinical. context and patient history. >=300 pg/mL - Heart Failure likely. Correlate with clinical. context and patient history.BNP testing is performed using different testing methodology at [facility] than at other [facility]. Direct result comparisons should only be made within the same method. >60 >60 MG-Vascular Surgery-José Miguel mathews 1800 Work Phone: [phone] Comment on above: CALCULATIONS OF NIKOLE MATED GFR ARE PERFORMED USING THE MDRD STUDY EQUATION FOR THE IDMS-TRACEABLE CREATININE METHODS. CLIN CHEM 2007;53:766-72 [email or web address]?RetrieveTestByDateTim e?CvhfhjpWW=[id number]&Da te=12-04-2021&Time=17%3a 54%3a59%3a00&TestType=EC G&Site=2&OutputType=PDF& Ext=PDF [facility]-Gastroente rology[facility] Work Phone: [phone] Normal sinus rhythm MG-Ga stroente rology-[facility] Work Phone: [phone] Normal MG-Gastroente rology[facility] Work Phone: [phone] 1 MG-Gastroente rology-[facility] Work Phone: [phone] 1 MG-Gastroente rology-[facility] Work Phone: [phone] 1 MG-Gastroente rology[facility] Work Phone: [phone] 1 MG-Gastroente rology[facility] Work Phone: [phone] 1 MG-Gastroente rology-[facility] Work Phone: [phone] 11 1 MG-Gastroente rology-[facility] Work Phone: [phone] 15 1 MG-Gastroente rology[facility] Work Phone: [phone] -8 1 MG-Gastroente rology-[facility] Work Phone: [phone] 38 1 MG-Gastroente rology-[facility] Work Phone: [phone] 1 MG-Gastroente rology-[facility] Work Phone: [phone] 1 MG-Gastroente rology[facility] Work Phone: [phone] 1 MG-Gastroente rology[facility] Work Phone: [phone] 1 MG-Gastroente rology[facility] Work Phone: [phone] 67 1 MG-Gastroente rology[facility] Work Phone: [phone] Office Visit ([facility])on 04-12-2021 Follow-up visit Diagnoses/Problems Assessed Renal artery stenosis (440.1) (I70.1) Ascending aortic aneurysm (441.2) (I71.2) Orders Renal artery stenosis Basic Metabolic Panel; Status:Active; Requested for:[id number]; Complete Blood Count + Differential; Status:Active; Requested for:[id number]; PT/INR; Status:Active; Requested for:[id number]; Patient Discussion/Summary Impression: tobacco smoking. Patient discussion: discussed with the patient, 3 minute visit, greater than half of the time was spent on counseling. 1. High-grade left renal artery stenosis 2. Possible FMD 3. Ascending aortic aneurysm, 4.4 cm - smoking cessation - aspirin 81 mg daily - BP control - blood work today - plan for left renal artery balloon angioplasty/stent next with Dr. Lott Provider Impressions 1. High-grade left renal artery stenosis 2. Possible FMD 3. Ascending aortic aneurysm, 4.4 cm - smoking cessation - aspirin 81 mg daily - BP control - blood work today - plan for left renal artery balloon angioplasty/stent next with Dr. Lott Chief Complaint The patient presents to the office today for an initial evaluation. History of Present Illness 50 year old male with PMH of HTN, bipolar disorder, ascending aortic aneurysm and renal artery stenosis here for initial evaluation. He has been receiving care at [facility] in [place] and recently moved back to [place]. He states Dr. Juan Franz has been monitoring his ascending aortic aneurysm as well as his left renal artery stenosis and that both have been stable as of last July. He was evaluated at [facility] ED last week with complaints of right-sided chest and shoulder pain after eating food high in nitrates. A CTA was obtained demonstrating high grade stenosis at the proximal left renal artery with poststenotic dilation. The right renal artery has a beading appearance. Ascending aorta measures 4.4 cm. He takes three antihypertensives. His most recent creatinine level is 1. He states his blood pressure typically runs in the 130/90s. He admits to pain with swallowing and is scheduled to undergo endoscopy with GI in the near future. He had GI issues while on Eliquis in the past. He denies chest pain or shortness of breath. He bikes miles a day as this is his main mode of transportation. He denies any family history of FMD. 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 Active Problems Problems Ascending aortic aneurysm (441.2) (I71.2) Bipolar 2 disorder (296.89) (F31.81) Chest pain (786.50) (R07.9) Constipation (564.00) (K59.00) COVID-19 (079.89) (U07.1) Esophageal spasm (530.5) (K22.4) Essential hypertension (401.9) (I10) ETOH abuse (305.00) (F10.10) GERD (gastroesophageal reflux disease) (530.81) (K21.9) Palpitations (785.1) (R00.2) Pancytopenia (284.19) (D61.818) Renal artery stenosis (440.1) (I70.1) Social History Problems Current smoker (305.1) (F17.200) ETOH abuse (305.00) (F10.10) Regular alcohol consumption (V69.8) (Z78.9) Allergies Medication Erythromycin TABS Adverse Reaction; Gatrointestinal upset; Updated By: Meagan Baugh; 02/22/2021 3:30:50 PM polyethylene glycol 3350 Gatrointestinal upset; Recorded By: Antonia Cuenca; 02/16/2021 10:12:41 AM Aspirin TABS Recorded By: Antonia Cuenca; 03/17/2021 3:12:47 PM Current Meds Medication NameInstruction cloNIDine HCl - 0.1 MG Oral TabletTAKE 1 TABLET BY MOUTH DAILY - May take 1 extra tablet for BP above 140/90. Lidocaine Viscous HCl - 2 % Mouth/Throat Solutiontake one teaspoon and swish and spit four times a day as needed Losartan Potassium 50 MG Oral TabletTAKE 1 TABLET DAILY. Metamucil 28.3 % Oral Powdermix one tablespoon in 8 ounces of water daily Metoprolol Succinate ER 25 MG Oral Tablet Extended Release 24 HourTAKE 1 TABLET DAILY. Omeprazole 40 MG Oral Capsule Delayed ReleaseTake one capsule once a day Vitals Vital Signs Recorded: [id number] 11:26AM Heart Rate90 Ewktudwe261, LUE, Sitting Wrqkwflku15, LUE, Sitting Blood Pressure Cuff SizeLarge Height5 ft 6 in Baafuf141 lb BMI Yzwyspikcc04.51 kg/m2 BSA Calculated1.95 Tobacco Useb) No Fall Screeninga) No falls within the last year O2 Pkutmcwizt80, RA Systolic Nuablpt197, RUE, Sitting Diastolic Erxnajp06, RUE, Sitting Physical Exam Constitutional: Well developed and well nourished. In no acute distress Neuro: Grossly normal without focal deficits Eyes: PERRL, EOMI Neck: Supple. No carotid bruits noted Cardiac: RRR, no murmur Resp: Clear to auscultation Abdomen: Soft, non-tender, non-distended. No audible bruits over left renal artery. Extremities: Warm and well perfused. No leg edema. No evidence of acute or chronic ischemia. No chronic venous insufficiency. Pulses: Normal pulse exam throughout Skin: No lesions Psych: Normal mood and (more content not included)... Normal [facility] Provider Note - ED v2on 07- Provider Note - ED v2 Provider Note - ED v2: Chart Review: ED NOTES ED NOTES: HPI Patient is a 50-year-old male with a past medical history significant for hypertension, renal artery stenosis, ascending aortic aneurysm last measured at 4.6 cm, bipolar disorder who presented to the emergency room today with right-sided chest and shoulder pain. He states that it feels like his usual pain. He thinks that he is suffering from a mass preventing food from going down as he feels like he chokes on his food all the time. He was seen for similar symptoms a few days ago and states that he was discharged home without any findings. He denies any fevers, chills, nausea, vomiting. He was given aspirin and nitro by EMS prior to arrival. Symptoms began at 1630 today. PMHx: As above PSHx: Denies pertinent to current presentation FamilyHx: Denies pertinent to current presentation SocialHx: Denies Allergies: Per EMR Medications: See Medication Reconciliation ROS General: Denies fever, sweating, weight loss/gain Eyes: Denies change in vision, double vision ENT: Denies Sore throat, nasal drainage, dental caries Cardiovascular: Endorses chest pain radiating to the right shoulder Respiratory: Denies shortness of breath, coughing, wheezing Gastrointestinal: Denies abdominal pain, nausea, vomiting, diarrhea Genitourinary: Denies problems urinating Musculoskeletal: Denies leg/calf pain, neck pain, back pain, joint pain Skin: Denies rashes Lymphatic: Denies swollen nodes, ankle swelling Neurology: Denies headache, fainting, dizziness, numbness, weakness Psychiatric: Denies anxiety, depression Physical Exam GENERAL: Awake and Alert, No Acute Distress HEENT: AT/NC, PERRL, EOMI, Normal Oropharynx, No Signs of Dehydration NECK: Normal Inspection, No JVD CARDIOVASCULAR: RRR, No M/R/G RESPIRATORY: CTA Bilaterally, No Wheezes, Rales or Rhonchi, Chest Wall Non-tender ABDOMEN: Soft, non-tender abdomen, Normal Bowel Sounds, No Distention BACK: No CVA Tenderness SKIN: Normal Color, Warm, Dry, No Rashes EXTREMITIES: Non-Tender, Full ROM, No Pedal Edema NEURO: A&O x 3, Normal Motor and Sensation, Normal Mood and Affect Nursing Assessment and Vitals Reviewed EKG on arrival showed a normal sinus rhythm at 67 bpm. There are no significant interval prolongations. There are T wave inversions isolated to lead III. There are slight elevations in the ST segment of 1 and aVL which are unchanged from prior in January 2021. They do not meet criteria for STEMI. Medical Decision Patient seen and evaluated for chest pain in the right chest radiating to the right shoulder. It feels like his usual pain. He states that he was seen for this a few days ago at [facility] 4 days ago which is confirmed by EMR. Per EMR he was saturating 90% on room air at that time but did not appear in any acute distress. Chest x-ray and labs unremarkable. He was discharged home to follow-up with PCP. Further review of records show the patient had a CT of the chest abdomen and pelvis on April 04. At that time he was complaining of abdominal pain. It showed a stable 4.5 cm ascending thoracic aortic aneurysm without signs of dissection. There was stenosis of the left renal artery which is known to patient. He is currently pending follow-up with vascular for this he states that it is already scheduled. 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 Today I have low suspicion for any acute pathology to the aorta given patient is very well-appearing, in no acute distress, intact neurologically with good bilateral upper extremity pulses. BP is a bilateral upper extremity are the same. Abdomen is soft, nontender nondistended. He is not hypoxic, tachypneic or tachycardic. Given complaints of chest pain will perform work-up although low suspicion for acute issues at this time. Work-up for patient included labs that revealed no significant anemia or leukocytosis. Platelets were 136. He had lymphopenia at 0.95. BMP within normal limits. Troponin is negative x1. While in the ED he complained of chest pain but again did not seem to be in any acute distress. Nevertheless EKG was repeated and showed a normal sinus rhythm at 54 bpm with T wave inversions in lead III similar to prior. At this time patient is pending a delta troponin. Low suspicion for dissection given lack of hypertension and very well-appearing and comfortable exam. He is signed out to oncoming physician pending delta Trope. Plan will be to discharge home if negative. Assessment chest pain HISTORY OF PRESENTING ILLNESS HOSEA is a 50 year old Male and was seen by me at 12-Apr-2021 18:20 for a chief complaint of chest pain . 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 (1). Triage Information: Mo (more content not included)... Normal [facility] Radiologyon 04-12-2021 XR Chest Single view Normal MG-V ascular Surgery-Marioe bisi 1800 Work Phone: TROPONIN Ion 04-12-2021 Troponin I.cardiac [Mass/Vol] ng/mL Normal 0.00 - 0.03 [facility] Comment on above: Result Comment: LESS THAN 0.04 NG/ML: NEGATIVE REPEAT TESTING IN THREE TO SIX HOURS IF CLINICALLY INDICATED. 0.04 - 0.5 NG/ML: CONSISTENT WITH POSSIBLE CARDIAC DAMAGE AND POSSIBLE INCREASED CLINICAL RISK. SERIAL MEASUREMENTS MAY HELP ASSESS EXTENT OF MYOCARDIAL DAMAGE. >0.5 NG/ML: CONSISTENT WITH CARDIAC DAMAGE, INCREASED CLINICAL RISK AND MYOCARDIAL INFARCTION. SERIAL MEASUREMENTS MAY HELP ASSESS EXTENT OF MYOCARDIAL DAMAGE. . Note: Troponin I testing is performed using different testing methodology at [facility] than at other [facility]. Direct result comparisons should only be made within the same method. Performed By: #### T ROP2 ####[facility] [id number] [place] [address] Triage - EDon 04-12-2021 Triage - ED Chart Review: ARRIVAL INFORMATION Mode of Arrival: ambulance Agency Name: [facility] CHIEF COMPLAINT HOSEA ALVAREZ is a Male patient with a chief complaint of chest pain. 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 Triage Date/Time: 12-Apr-2021 17:52 WILMAN: 2 Pain Rating (0-10): 6 = Moderate Pain location: r chest/back Vital Signs: Temperature: 97.5F ( 36.3C) taken noncontact, forehead Blood Pressure: 125/91 Mean: Heart Rate: 74 Respiratory Rate: 17 Pulse Oximetry: 97% on room air, no respiratory support. Height: 5 feet 6 inches. 167.6 CM Weight: 187.3 pounds. Calculated 85.0 kg. (stated) Calculated BMI (kg/m2): 30.260 Calculated BSA (m2) 1.99 [place] Coma Scale: Best Eye Response: (E4) spontaneous Best Motor Response: (M6) obeys commands Best Verbal Response: (V5) oriented Lynda Score: 15 Patient has homicidal thoughts: no Activity At Onset: Physical activity Chest Pain Location-Right: upper chest Chest Pain Radiation-Right: back Risk Screens Suicide Risk Screen In the Past Month: Have you wished you were or wished you could go to sleep and not wake up no In the Past Month: Have you had any actual thoughts of killing yourself no In Your Lifetime: Have you ever done anything, started to do anything, or prepared to do anything to end your life no [place]ina Fall Scale Screening Has the patient fallen before (or is the patient in the ED as a result of a fall) has not had a fall Does the patient have an impaired gait does not have impaired gait Is the patient cognitively impaired not cognitively impaired Interventions: Molina Fall Interventions: LOW INTERVENTIONS: *patient oriented to surroundings and call system, * patient/family falls education completed and documented, *patients fall status communicated during bedside handoff, *whiteboard updated, *mode of toileting discussed with patient, *bed in low position with brakes locked, *call light in reach, * non-skid footwear TRAVEL HISTORY Travel History Coronavirus Screening: no exposure or symptoms Travel Exposure History: NO travel to International locations in the past 30 days PAIN Pain Scale Used: SHANNON Pain Rating (0-10): 6 = Moderate Past Medical History: Past Medical History Reviewedyes Electronic Signatures: Cierra Francisco (BR[place]NN) (Signed 12-Apr-2021 18:27) Authored: Quick Triage,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 Liam So ER Provider by me on 04/04/21 at 12.47 AM. Electronically signed by: HOUSTON JONES MD [facility] Complete Blood Count + Diffe ubaldo 04-04-2021 Basophils/100 WBC (Bld) 0.3 % 0.0 - 2.0 [facility] Work Phone: Erythrocyte distribution width (RBC) [Ratio] 12.8 % See Below [facility] Work Phone: Comment on above: Reference Range: 11. 5 - 14.5 Hematocrit (Bld) [Volume fraction] 40.5 % below low threshold See Below [facility] Work Phone: Comment on above: Reference Range: 41. 0 - 52.0 Hemoglobin (Bld) [Mass/Vol] 13.3 g/dL below low threshold See Below [facility] Work Phone: Comment on above: Reference Range: 13. 5 - 17.5 Lymphocytes/100 WBC (Bld) 27.2 % See Below [facility] Work Phone: Comment on above: Reference Range: 13. 0 - 44.0 MCHC (RBC) [Mass/Vol] 32.8 g/dL See Below [facility] Work Phone: Comment on above: Reference Range: 32. 0 - 36.0 MCV (RBC) [Entitic vol] 86 fL 80 - 100 [facility] Work Phone: Monocytes/100 WBC (Bld) 10.1 % 2.0 - 10.0 [facility] Work Phone: Neutrophils/100 WBC (Bld) 60.7 % See Below [facility] Work Phone: Comment on above: Reference Range: 40. 0 - 80.0 Platelets (Bld) [#/Vol] 147 10*3/uL below low threshold 150 - 450 [facility] Work Phone: RBC (Bld) [#/Vol] 4.72 {x10E12/L} See Below [facility] Work Phone: Comment on above: Reference Range: 4.5 0 - 5.90 WBC (Bld) [#/Vol] 2.9 10*3/uL below low threshold 4.4 - 11.3 [facility] Work Phone: Complete Blood Count + Differential 0.01 {x10E9/L} See Below [facility] Work Phone: Comment on above: Reference Range: 0.0 0 - 0.10 Complete Blood Count + Differential 0.04 {x10E9/L} See Below [facility] Work Phone: Comment on above: Reference Range: 0.0 0 - 0.70 Complete Blood Count + Differential 0.29 {x10E9/L} See Below [facility] Work Phone: Comment on above: Reference Range: 0.1 0 - 1.00 Complete Blood Count + Differential 0.78 {x10E9/L} below low threshold See Below [facility] Work Phone: Comment on above: Reference Range: 1.2 0 - 4.80 Complete Blood Count + Differential 1.74 {x10E9/L} See Below [facility] Work Phone: Comment on above: Reference Range: 1.2 0 - 7.70 Complete Blood Count + Differential 1.4 % 0.0 - 6.0 [facility] Work Phone: Complete Blood Count + Differential 0.3 % 0.0 - 0.9 [facility] Work Phone: Comment on above: Immature Granulocyte Count (IG) includes promyelocytes, myelocytes and metamyelocytes but does not include bands. Percent differential counts (%) should be interpreted in the context of the absolute cell counts (cells/L). Laboratory - Chemistry and C hemistry - challengeon 04-04-2021 Albumin BCP dye [Mass/Vol] 4.2 g/dL 3.4 - 5.0 [facility] [place] Work Phone: ALP [Catalytic activity/Vol] 61 U/L 33 - 120 [facility] [place] Work Phone: ALT With P-5'-P [Catalytic activity/Vol] 16 U/L 10 - 52 [facility] [place] Work Phone: Comment on above: Patients treated wit h Sulfasalazine may generate falsely decreased results for ALT. Anion gap [Moles/Vol] 13 mmol/L 10 - 20 [facility] Work Phone: AST With P-5'-P [Catalytic activity/Vol] 18 U/L 9 - 39 [facility] [place] Work Phone: Bilirubin [Mass/Vol] 0.6 mg/dL 0.0 - 1.2 [facility] [place] Work Phone: Calcium [Mass/Vol] 9.1 mg/dL 8.6 - 10.3 [facility] [place] Work Phone: Chloride [Moles/Vol] 101 mmol/L 98 - 107 [facility] [place] Work Phone: CO2 [Moles/Vol] 26 mmol/L 21 - 32 [facility] [place] Work Phone: Creatinine [Mass/Vol] 0.97 mg/dL See Below [facility] Work Phone: Comment on above: Reference Range: 0.5 0 - 1.30 Glucose [Mass/Vol] 116 mg/dL above high threshold 74 - 99 [facility] Work Phone: Potassium [Moles/Vol] 3.6 mmol/L 3.5 - 5.3 [facility] Work Phone: Protein [Mass/Vol] 7.2 g/dL 6.4 - 8.2 [facility] Work Phone: Sodium [Moles/Vol] 136 mmol/L 136 - 145 [facility] Work Phone: Urea nitrogen [Mass/Vol] 10 mg/dL 6 - 23 [facility] Work Phone: Laboratory - Coagulationon 0 04-04-2021 INR Coag (PPP) [Relative time] 1.0 {INR} 0.9 - 1.1 [facility] [place] Work Phone: PT Coag (PPP) [Time] 12.1 s See Below [facility] [place] Work Phone: Comment on above: Reference Range: 10. 1 - 13.3 No Panel Informationon 04-04 Normal [facility] Work Phone: >60 >60 [facility] [place] Work Phone: Comment on above: CALCULATIONS OF NIKOLE MATED GFR ARE PERFORMED USING THE MDRD STUDY EQUATION FOR THE IDMS-TRACEABLE CREATININE METHODS. CLIN CHEM 2007;53:[id number] PT/INRon 04-04-2021 PT Coag (PPP) [Time] 12.1 s Normal 10.1 - 13.3 [facility] Comment on above: Performed By: #### P TINR #### [address] [id number] PT, INR 1.0 Normal 0.9 - 1.1 [facility] Comment on above: Performed By: #### P TINR #### [address] [id number] Provider Note - ED v2on 03-23 Provider Note - ED v2 Provider Note - ED v2: Chart Review: ED NOTES ED NOTES: Male patient comes in the emergency department today with complaints of chronic issue of right-sided numbness. He states he seen doctors from [place] to [place] to [place] regarding this particular issue. He states at times is worse than others. 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 States he had multiple scans of his head and body. States it is never anything going on in the brain. He states that they have shoved 12-gauge needles in his feet in [place] to check for numbness and he does feel that. States he feels like the sensation is just decreased. Sometimes is worse than others. States they want his episodes today for this purpose comes in the emergency department. States he has associated mild abdominal discomfort with history of constipation but also history of abdominal aortic a aneurysm which he is very concerned that it is growing and possibly dissecting. HISTORY OF PRESENTING ILLNESS HOSEA is a 50 year old Male and was seen by me at 04-Apr-2021 09:38 for a chief complaint of numbness . The historian is the patient. Triage Information: Most recent Vital Sign Value Date Temp (F): 99.1 04-04-2021 09:34 Temp (C): 37.3 04-04-2021 09:34 BP Systolic (mm Hg): 146 04-04-2021 09:34 BP Diastolic (mm Hg): 93 04-04-2021 09:34 Located in the: right upper quadrant and right lower quadrant area. The quality is aching. The context is Unknown. (Chronic but intermittent in severity). PAST MEDICAL HISTORY ATTESTATION: I have reviewed and confirmed nurse's/medic's notes for patient's medications, allergies, and medical, surgical, family and social history ALLERGIES/INTOLERANCES: Allergy Allergen: Erythromycin Base Type: Drug Reaction: Unknown Allergen: caffine Type: Food Reaction: Other Allergen: Cipro Type: Drug Reaction: Unknown Intolerance Allergen: polyethylene glycol 3350 Type: Drug Reaction: GI Upset HEALTH HISTORY: Family History Name:No family history of cancer Code:Z78.9 Name:No family history of coronary artery disease Code:Z78.9 Medical History Name:Chest pain Code:R07.9 Name:Renal artery stenosis Code:I70.1 Name:Pulmonary embolism Code:I26.99 Name:History of COVID-19 Code:Z86.16 Name:Ascending aortic aneurysm Code:I71.2 Name:Bipolar disorder Code:F31.9 Name:Palpitations Code:R00.2 Social History Name:Homeless Code:Z59.0 Name:Does not use illicit drugs Code:Z78.9 Name:Consumes alcohol occasionally Code:Z78.9 Name:Former smoker Code:Z87.891 OUTPATIENT MEDICATIONS: Home Medications Review Status for Reconciliation: N/A Med Status: Patient Currently Takes Medications Drug Name: amoxicillin-clavulanate 875 mg-125 mg oral tablet Instructions: 1 tab(s) orally every 12 hours Drug Name: amLODIPine 5 mg oral tablet Instructions: 1 tab(s) orally once a day Drug Name: atorvastatin 10 mg oral tablet Instructions: 1 tab(s) orally once a day Drug Name: azelastine 137 mcg/inh (0.1%) nasal spray Instructions: 2 spray(s) nasal 2 times a day Drug Name: cholecalciferol 5000 intl units (125 mcg) oral capsule Instructions: 1 cap(s) orally once a day Drug Name: clonazePAM 0.5 mg oral tablet Instructions: 1 tab(s) orally once a day Drug Name: cloNIDine 0.1 mg oral tablet Instructions: 1 tab(s) orally once a day, As Needed for BP above 140/90 Drug Name: docusate sodium 100 mg oral tablet Instructions: 1 tab(s) orally 2 times a day Drug Name: hydrALAZINE 10 mg oral tablet Instructions: 1 tab(s) orally once a day Drug Name: losartan 50 mg oral tablet Instructions: 1 tab(s) orally once a day Drug Name: Melatonin 5 mg oral tablet Instructions: 1 tab(s) orally once a day (at bedtime) Drug Name: metoprolol succinate 25 mg oral tablet, extended release Instructions: 1 tab(s) orally once a day Drug Name: Multiple Vitamins oral tablet Instructions: 1 tab(s) orally once a day Drug Name: pantoprazole 40 mg oral delayed release tablet Instructions: 1 tab(s) orally once a day Drug Name: sucralfate 1 g/10 mL oral suspension Instructions: 10 milliliter(s) orally 4 times a day (before meals and at bedtime) Drug Name: triamterene-hydrochlorot hiazide 37.5 mg-25 mg oral capsule Instructions: 1 cap(s) orally once a day Drug Name: zinc (as acetate) 50 mg oral capsule Instructions: 1 cap(s) orally once a day Drug Name: dexamethasone 4 mg oral tablet Instructions: 1 tab(s) orally once a day Drug Name: lidocaine 2% mucous membrane solution Instructions: 5 milliliter(s) mucous membrane every 4 hours, As Needed for upset stomach Drug Name: AneCream 5 topical cream Instructions: Apply topically to affected area Drug Name: kit (more content not included)... Normal [facility] Risk Screen - Adult Emergenc yon 04-04-2021 Risk Screen - Adult Emergency Preferred Language: Preferred Language: Preferred Language for Discussing Health Care (patient/designee)Fran villalta Advanced Directives: Advance Directive/DNRno Family Violence Adult: Abuse Screen: Are you or have you been threatened or abused physically, emotionally, or sexually by anyoneno Learning Assessment (Patient): Learning Assessment (Patient): Patient is Able to be Assessed for Learningyes Factors Influencing Readiness to Learnmotivation to learn Factors that Impact Ability to Learnnone Devices/Methods Used to Communicatenone Learning Preferencesaudio Cultural Considerationsnone Developmental Considerationsnone Zoroastrian Considerationsnone Learning Assessment (Other Learner): Learning Assessment (Other Learner): Other learner availableno Pressure Injury/TB/Substance: Pressure Injury: Pressure Injury Present on Admissionno Do you have a coughno Smoking Statusformer smoker (1) Admission Risk Screen: Significant IndicatorsComplete CAGE: CAGE: Is this an injured patient at a Trauma Center ([facility]/[place] /[place]): no Electronic Signatures: Jaylin Willett (RN) (Signed 04-Apr-2021 11:56) Authored: Preferred Language, Advanced Directives, Family Violence Adult, Learning Assessment (Patient), Learning Assessment (Other Learner), Pressure Injury/TB/Substance, Pressure Injury, CAGE Last Updated: 04-Apr-2021 11:56 by Jaylin Willett (RN) References: 1. Data Referenced From Risk Screen - Adult Emergency 03-Apr-2021 19:17 Normal [facility] TROPONIN Ion 04-04-2021 Troponin I.cardiac [Mass/Vol] ng/mL Normal 0.00 - 0.03 [facility] Comment on above: Result Comment: LESS THAN 0.04 NG/ML: NEGATIVE REPEAT TESTING IN THREE TO SIX HOURS IF CLINICALLY INDICATED. 0.04 - 0.5 NG/ML: CONSISTENT WITH POSSIBLE CARDIAC DAMAGE AND POSSIBLE INCREASED CLINICAL RISK. SERIAL MEASUREMENTS MAY HELP ASSESS EXTENT OF MYOCARDIAL DAMAGE. >0.5 NG/ML: CONSISTENT WITH CARDIAC DAMAGE, INCREASED CLINICAL RISK AND MYOCARDIAL INFARCTION. SERIAL MEASUREMENTS MAY HELP ASSESS EXTENT OF MYOCARDIAL DAMAGE. . Note: Troponin I testing is performed using different testing methodology at [facility] than at other [facility]. Direct result comparisons should only be made within the same method. Performed By: #### T ROP2 #### [address] [id number] Triage - EDon 04-04-2021 Triage - ED Quick Triage: The patient and/or guardian verbally acknowledges placement for services into the following (when Urgent Care Service hours are operating):emergency department Chart Review: PRIMARY ASSESSMENT HOSEA ALVAREZ'brennon primary assessment is Within Defined Limits. The airway is open and patent. Breathing spontaneous and unlabored with clear breath sounds bilaterally. Circulation is normal with good peripheral pulses. Skin is warm and dry and color is normal for race. ARRIVAL INFORMATION Means of Arrival: Ambulatory Mode of Arrival: private vehicle Arrival From: home Accompanied By: self Language: Spoken Language Preferred: Zimbabwean Reading Language Preferred: [place]an Escort Patients Requested: no film archivist was requested MDRO: History of MDRO: no Present on Arrival: Device Present on Arrival to ED: no Pressure Ulcer Present on Arrival to ED: no CHIEF COMPLAINT HOSEA ALVAREZ is a Male patient with a chief complaint of numbness. Triage Date/Time: 04-Apr-2021 09:34 WILMAN: 3 Pain Rating (0-10): 0 = None Vital Signs: Temperature: 99.1F ( 37.3C) taken temporal Blood Pressure: 146/93 Mean: 114 Height: 5 feet 6 inches. 167.6 CM Weight: 187.3 pounds. Calculated 85.0 kg. (stated) Calculated BMI (kg/m2): 30.260 Calculated BSA (m2) 1.99 Lynda Coma Scale: Best Eye Response: (E4) spontaneous Best Motor Response: (M6) obeys commands Best Verbal Response: (V5) oriented [place] Score: 15 Allergies: yes Mask applied: yes Patient has homicidal thoughts: no Last Known Well: known Time Last Known Well Date/Time: 04-Apr-2021 09:15 Risk Screens Suicide Risk Screen In the Past Month: Have you wished you were or wished you could go to sleep and not wake up no In the Past Month: Have you had any actual thoughts of killing yourself no In Your Lifetime: Have you ever done anything, started to do anything, or prepared to do anything to end your life no Molina Fall Scale Screening Has the patient fallen before (or is the patient in the ED as a result of a fall) has not had a fall Does the patient have an impaired gait does not have impaired gait Is the patient cognitively impaired not cognitively impaired Interventions: Molina Fall Interventions: LOW INTERVENTIONS: *patient oriented to surroundings and call system, * patient/family falls education completed and documented, *patients fall status communicated during bedside handoff, *whiteboard updated, *mode of toileting discussed with patient, *bed in low position with brakes locked, *call light in reach, * non-skid footwear PAST MEDICAL HISTORY Immunization History: Last Known Tetanus Immunization: Unknown TRAVEL HISTORY Travel History Coronavirus Screening: no exposure or symptoms Travel Exposure History: NO travel to International locations in the past 30 days PAIN Pain Scale Used: SHANNON Pain Rating (0-10): 0 = None Past Medical History: Past Medical History Reviewedyes intestinal tumor: Past Medical History, Active Electronic Signatures: Lily Cordero (COOR) (Signed 04-Apr-2021 09:42) Authored: Quick Triage, Risk Screens, Pain, Arrival, ABCD, Immunizations, Travel History, Chart Review, Scores, Past Medical History Last Updated: 04-Apr-2021 09:42 by Lily Cordero (COOR) Normal [facility] URINALYSIS WITH CULTURE IF I NDICATEDon 04-04-2021 Appearance (U) CLEAR Normal CLEAR [facility] Comment on above: Performed By: #### U ARFX #### [address] [id number] Bilirubin Ql (U) Negative Normal NEGATIVE [facility] Comment on above: Performed By: #### U ARFX #### [address] [id number] Color (U) STRAW Normal STRAW,YELLOW [facility] Comment on above: Performed By: #### U ARFX #### [address] [id number] Glucose Ql (U) Negative Normal NEGATIVE [facility] Comment on above: Performed By: #### U ARFX #### [address] [id number] Hemoglobin Ql (U) Negative Normal NEGATIVE [facility] Comment on above: Performed By: #### U ARFX #### [address] [id number] Ketones Ql (U) Negative Normal NEGATIVE [facility] Comment on above: Performed By: #### U ARFX #### [address] [id number] Leukocyte esterase Test strip Ql (U) Negative Normal NEGATIVE [facility] Comment on above: Performed By: #### U ARFX #### [address] [id number] Nitrite Ql (U) Negative Normal NEGATIVE [facility] Comment on above: Performed By: #### U ARFX #### [address] [id number] pH (U) 6.0 [pH] Normal 5.0 - 8.0 [facility] Comment on above: Performed By: #### U ARFX #### [address] [id number] Protein Ql (U) Negative Normal NEGATIVE [facility] Comment on above: Performed By: #### U ARFX #### [address] [id number] Specific gravity (U) [Rel density] 1.003 Low 1.005 - 1.035 [facility] Comment on above: Performed By: #### U ARFX #### [address] [id number] Urobilinogen (U) [Mass/Vol] mg/dL Normal 0.0 - 1.9 [facility] Comment on above: Performed By: #### U ARFX #### [address] [id number] Color (U) STRAW See Below [facility] Work Phone: Comment on above: Reference Range: STR AW,YELLOW Glucose Ql (U) Negative NEGATIVE [facility] Work Phone: Ketones Ql (U) Negative NEGATIVE [facility] Work Phone: [phone] Leukocyte esterase Test strip Ql (U) Negative NEGATIVE [facility] Work Phone: [phone] pH (U) 6.0 [pH] 5.0 - 8.0 [facility] Work Phone: [phone] Protein (U) [Mass/Vol] Negative NEGATIVE [facility] Work Phone: [phone] RBC (U) [#/Vol] Negative NEGATIVE [facility] Work Phone: Specific gravity (U) [Rel density] 1.003 1 below low threshold See Below [facility] Work Phone: Comment on above: Reference Range: 1.0 05 - 1.035 URINALYSIS WITH CULTURE IF INDICATED Negative NEGATIVE [facility] Work Phone: URINALYSIS WITH CULTURE IF INDICATED <2.0 0.0 - 1.9 [facility] Work Phone: URINALYSIS WITH CULTURE IF INDICATED CLEAR CLEAR [facility] Work Phone: CBC AND DIFFERENTIALon 04-03 % AUTOMATED IMMATURE GRAN 0.0 % Normal 0.0 - 0.9 [facility] Comment on above: Result Comment: Kath ture Granulocyte Count (IG) includes promyelocytes, myelocytes and metamyelocytes but does not include bands. Percent differential counts (%) should be interpreted in the context of the absolute cell counts (cells/L). Performed By: #### C BCDF #### [address] [id number] Basophils (Bld) [#/Vol] 0.02 10*3/uL Normal 0.00 - 0.10 [facility] Comment on above: Performed By: #### C BCDF #### [address] [id number] Basophils/100 WBC (Bld) 0.5 % Normal 0.0 - 2.0 [facility] Comment on above: Performed By: #### C BCDF #### [address] [id number] Eosinophils (Bld) [#/Vol] 0.05 10*3/uL Normal 0.00 - 0.70 [facility] Comment on above: Performed By: #### C BCDF #### [address] [id number] Eosinophils/100 WBC (Bld) 1.2 % Normal 0.0 - 6.0 [facility] Comment on above: Performed By: #### C BCDF #### [address] [id number] Erythrocyte distribution width (RBC) [Ratio] 12.8 % Normal 11.5 - 14.5 [facility] Comment on above: Performed By: #### C BCDF #### [address] [id number] Hematocrit (Bld) [Volume fraction] 37.0 % Low 41.0 - 52.0 [facility] Comment on above: Performed By: #### C BCDF #### [address] [id number] Hemoglobin (Bld) [Mass/Vol] 12.1 g/dL Low 13.5 - 17.5 [facility] Comment on above: Performed By: #### C BCDF #### [address] [id number] Lymphocytes (Bld) [#/Vol] 0.86 10*3/uL Low 1.20 - 4.80 [facility] Comment on above: Performed By: #### C BCDF #### [address] [id number] Lymphocytes/100 WBC (Bld) 21.1 % Normal 13.0 - 44.0 [facility] Comment on above: Performed By: #### C BCDF #### [address] [id number] MCHC (RBC) [Mass/Vol] 32.7 g/dL Normal 32.0 - 36.0 [facility] Comment on above: Performed By: #### C BCDF #### [address] [id number] MCV (RBC) [Entitic vol] 86 fL Normal 80 - 100 [facility] Comment on above: Performed By: #### C BCDF #### [address] [id number] Monocytes (Bld) [#/Vol] 0.39 10*3/uL Normal 0.10 - 1.00 [facility] Comment on above: Performed By: #### C BCDF #### [address] [id number] Monocytes/100 WBC (Bld) 9.6 % Normal 2.0 - 10.0 [facility] Comment on above: Performed By: #### C BCDF #### [address] [id number] Neutrophils (Bld) [#/Vol] 2.75 10*3/uL Normal 1.20 - 7.70 [facility] Comment on above: Performed By: #### C BCDF #### [address] [id number] Neutrophils/100 WBC (Bld) 67.6 % Normal 40.0 - 80.0 [facility] Comment on above: Performed By: #### C BCDF #### [address] [id number] Platelets (Bld) [#/Vol] 144 10*3/uL Low 150 - 450 [facility] Comment on above: Performed By: #### C BCDF #### [address] [id number] RBC 4.31 x10E12/L Low 4.50 - 5.90 [facility] Comment on above: Performed By: #### C BCDF #### [address] [id number] WBC (Bld) [#/Vol] 4.1 10*3/uL Low 4.4 - 11.3 [facility] Comment on above: Performed By: #### C BCDF #### [address] [id number] CHEST 1 VIEWon 04-03-2021 CHEST 1 VIEW Patient Name: HOSEA ALVAREZ STUDY: CHEST 1 VIEW; 04/03/2021 8:04 pm INDICATION: Chest Pain. COMPARISON: Chest x-ray 04/01/2021 ACCESSION NUMBER(S): [id number] ORDERING CLINICIAN: IRVING WILLS FINDINGS: Multiple overlying leads are present. CARDIOMEDIASTINAL SILHOUETTE: Cardiomediastinal silhouette is normal in size and configuration. LUNGS: No consolidation, pleural effusion or pneumothorax. ABDOMEN: No remarkable upper abdominal findings. BONES: No acute osseous abnormality. IMPRESSION: No acute cardiopulmonary process. Electronically signed by: BHARGAV MOJICA MD Normal [facility] COMPREHENSIVE PANELon 2020 Albumin [Mass/Vol] 3.8 g/dL Normal 3.4 - 5.0 [facility] Comment on above: Performed By: #### C MP #### [address] [id number] ALP [Catalytic activity/Vol] 56 U/L Normal 33 - 120 [facility] Comment on above: Performed By: #### C MP #### [address] [id number] ALT [Catalytic activity/Vol] 14 U/L Normal 10 - 52 [facility] Comment on above: Result Comment: Yanni ents treated with Sulfasalazine may generate falsely decreased results for ALT. Performed By: #### C MP #### [address] [id number] Anion gap [Moles/Vol] 11 mmol/L Normal 10 - 20 [facility] Comment on above: Performed By: #### C MP #### [address] [id number] AST [Catalytic activity/Vol] 17 U/L Normal 9 - 39 [facility] Comment on above: Performed By: #### C MP #### [address] [id number] Bilirubin [Mass/Vol] 0.4 mg/dL Normal 0.0 - 1.2 [facility] Comment on above: Performed By: #### C MP #### [address] [id number] Calcium [Mass/Vol] 8.7 mg/dL Normal 8.6 - 10.3 [facility] Comment on above: Performed By: #### C MP #### [address] [id number] Chloride [Moles/Vol] 105 mmol/L Normal 98 - 107 [facility] Comment on above: Performed By: #### C MP #### [address] [id number] Creatinine [Mass/Vol] 1.06 mg/dL Normal 0.50 - 1.30 [facility] Comment on above: Performed By: #### C MP #### [address] [id number] GFR- AM. >60 Normal >60 [facility] Comment on above: Result Comment: CALC ULATIONS OF ESTIMATED GFR ARE PERFORMED USING THE MDRD STUDY EQUATION FOR THE IDMS-TRACEABLE CREATININE METHODS. CLIN CHEM 2007;53:766-72 Performed By: #### C MP #### [address] [id number] GFR-NON AM. >60 Normal >60 [facility] Comment on above: Performed By: #### C MP #### [address] [id number] Glucose [Mass/Vol] 86 mg/dL Normal 74 - 99 [facility] Comment on above: Performed By: #### C MP #### [address] [id number] HCO3 (Bld) [Moles/Vol] 26 mmol/L Normal 21 - 32 [facility] Comment on above: Performed By: #### C MP #### [address] [id number] Potassium [Moles/Vol] 4.0 mmol/L Normal 3.5 - 5.3 [facility] Comment on above: Performed By: #### C MP #### [address] [id number] Protein [Mass/Vol] 6.5 g/dL Normal 6.4 - 8.2 [facility] Comment on above: Performed By: #### C MP #### [address] [id number] Sodium [Moles/Vol] 138 mmol/L Normal 136 - 145 [facility] Comment on above: Performed By: #### C MP #### [address] [id number] Urea nitrogen [Mass/Vol] 13 mg/dL Normal 6 - 23 [facility] Comment on above: Performed By: #### C MP #### [address] [id number] Complete Blood Count + Lorena conner 04-03-2021 Basophils/100 WBC (Bld) 0.5 % 0.0 - 2.0 [facility] Work Phone: Erythrocyte distribution width (RBC) [Ratio] 12.8 % See Below [facility] Work Phone: Comment on above: Reference Range: 11. 5 - 14.5 Hematocrit (Bld) [Volume fraction] 37.0 % below low threshold See Below [facility] Work Phone: Comment on above: Reference Range: 41. 0 - 52.0 Hemoglobin (Bld) [Mass/Vol] 12.1 g/dL below low threshold See Below [facility] Work Phone: Comment on above: Reference Range: 13. 5 - 17.5 Lymphocytes/100 WBC (Bld) 21.1 % See Below [facility] Work Phone: Comment on above: Reference Range: 13. 0 - 44.0 MCHC (RBC) [Mass/Vol] 32.7 g/dL See Below [facility] Work Phone: Comment on above: Reference Range: 32. 0 - 36.0 MCV (RBC) [Entitic vol] 86 fL 80 - 100 [facility] Work Phone: Monocytes/100 WBC (Bld) 9.6 % 2.0 - 10.0 [facility] Work Phone: Neutrophils/100 WBC (Bld) 67.6 % See Below [facility] Work Phone: Comment on above: Reference Range: 40. 0 - 80.0 Platelets (Bld) [#/Vol] 144 10*3/uL below low threshold 150 - 450 [facility] Work Phone: RBC (Bld) [#/Vol] 4.31 {x10E12/L} below low threshold See Below [facility] Work Phone: Comment on above: Reference Range: 4.5 0 - 5.90 WBC (Bld) [#/Vol] 4.1 10*3/uL below low threshold 4.4 - 11.3 [facility] Work Phone: Complete Blood Count + Differential 0.02 {x10E9/L} See Below [facility] Work Phone: Comment on above: Reference Range: 0.0 0 - 0.10 Complete Blood Count + Differential 0.05 {x10E9/L} See Below [facility] Work Phone: Comment on above: Reference Range: 0.0 0 - 0.70 Complete Blood Count + Differential 0.39 {x10E9/L} See Below [facility] Work Phone: Comment on above: Reference Range: 0.1 0 - 1.00 Complete Blood Count + Differential 0.86 {x10E9/L} below low threshold See Below [facility] Work Phone: Comment on above: Reference Range: 1.2 0 - 4.80 Complete Blood Count + Differential 2.75 {x10E9/L} See Below [facility] Work Phone: Comment on above: Reference Range: 1.2 0 - 7.70 Complete Blood Count + Differential 1.2 % 0.0 - 6.0 [facility] Work Phone: Complete Blood Count + Differential 0.0 % 0.0 - 0.9 [facility] Work Phone: Comment on above: Immature Granulocyte Count (IG) includes promyelocytes, myelocytes and metamyelocytes but does not include bands. Percent differential counts (%) should be interpreted in the context of the absolute cell counts (cells/L). Laboratory - Chemistry and C hemistry - challengeon 04-03-2021 Albumin BCP dye [Mass/Vol] 3.8 g/dL 3.4 - 5.0 [facility] [place] Work Phone: ALP [Catalytic activity/Vol] 56 U/L 33 - 120 [facility] [place] Work Phone: ALT With P-5'-P [Catalytic activity/Vol] 14 U/L 10 - 52 [facility] [place] Work Phone: Comment on above: Patients treated wit h Sulfasalazine may generate falsely decreased results for ALT. Anion gap [Moles/Vol] 11 mmol/L 10 - 20 [facility] [place] Work Phone: AST With P-5'-P [Catalytic activity/Vol] 17 U/L 9 - 39 [facility] [place] Work Phone: Bilirubin [Mass/Vol] 0.4 mg/dL 0.0 - 1.2 [facility] [place] Work Phone: Calcium [Mass/Vol] 8.7 mg/dL 8.6 - 10.3 [facility] [place] Work Phone: Chloride [Moles/Vol] 105 mmol/L 98 - 107 [facility] [place] Work Phone: CO2 [Moles/Vol] 26 mmol/L 21 - 32 [facility] [place] Work Phone: Creatinine [Mass/Vol] 1.06 mg/dL See Below [facility] [place] Work Phone: Comment on above: Reference Range: 0.5 0 - 1.30 Glucose [Mass/Vol] 86 mg/dL 74 - 99 [facility] [place] Work Phone: Potassium [Moles/Vol] 4.0 mmol/L 3.5 - 5.3 [facility] Work Phone: Protein [Mass/Vol] 6.5 g/dL 6.4 - 8.2 [facility] Work Phone: Sodium [Moles/Vol] 138 mmol/L 136 - 145 [facility] Work Phone: Urea nitrogen [Mass/Vol] 13 mg/dL 6 - 23 [facility] Work Phone: Laboratory - Coagulationon 0 04-03-2021 INR Coag (PPP) [Relative time] 1.0 {INR} 0.9 - 1.1 [facility] Work Phone: PT Coag (PPP) [Time] 12.1 s See Below [facility] Work Phone: Comment on above: Reference Range: 10. 1 - 13.3 No Panel Informationon 04-03 >60 >60 [facility] Work Phone: Comment on above: CALCULATIONS OF NIKOLE MATED GFR ARE PERFORMED USING THE MDRD STUDY EQUATION FOR THE IDMS-TRACEABLE CREATININE METHODS. CLIN CHEM 2007;53:766-72 [email or web address] e?[id number]&Da te=08-29-2021&Time=19%3a 11%3a58%3a00&TestType=EC G&Site=11&OutputType=PDF &Ext=PDF [facility] Work Phone: Sinus bradycardia [facility] Work Phone: Abnormal [facility] Work Phone: [phone] [facility] Work Phone: [phone] [facility] Work Phone: [phone] [facility] Work Phone: 118 1 [facility] Work Phone: [phone] 1 [facility] Work Phone: 9 1 [facility] Work Phone: 12 1 [facility] Work Phone: -12 1 [facility] Work Phone: 31 1 [facility] Work Phone: [phone] [facility] Work Phone: [phone] [facility] Work Phone: 102 1 [facility] Work Phone: [phone] [facility] Work Phone: [phone] [facility] Work Phone: PT/INRon 04-03-2021 PT Coag (PPP) [Time] 12.1 s Normal 10.1 - 13.3 [facility] Comment on above: Performed By: #### T ROP2 #### [address] [id number] PT, INR 1.0 Normal 0.9 - 1.1 [facility] Comment on above: Performed By: #### T ROP2 #### [address] [id number] Provider Note - ED v2on 03-23 Provider Note - ED v2 Provider Note - ED v2: Chart Review: ED NOTES ED NOTES: HPI Patient is a 50-year-old male with a history of hypertension, renal stenosis, ascending aortic aneurysm at 4.6 cm, bipolar disorder who presents with chest pain. Patient with pressured speech, multiple complaints. Patient reports he was riding his bike and felt chest tightness across his chest towards the right. Reports symptoms lasted for 20 minutes. Patient denies associated diaphoresis. Patient reports nausea. Patient reports some shortness of breath. Patient with similar symptoms for the past several months. Patient reports concerns that this is the aneurysm pressing against other vascular structures in my chest. Per chart review, patient presented to ER 2 days ago with similar complaints. Patient has presented to multiple ERs over the past 2 months with similar complaints. Patient with MRI March 14: Limited study - patient declined regadenoson during protocol. 1. Normal LV size (EDVi 78 ml/m2) and systolic function (LVEF 55%). 2. No regional wall motion abnormalities. 3. No evidence of active myocardial or pericardial inflammation on T2 weighted imaging. 4. No evidence of LV thrombus or MVO. 5. No evidence of myocardial fibrosis, infiltration or infarction. 6. Ascending aortic aneurysm (4.6 cm). 7. Trileaflet aortic valve with mild AI (RF 10%). Patient is difficult to obtain history from as he continues to discuss multiple different subjects regarding his health care. Patient reports he is following between [place] and [place] because of work. Per chart review, some concern for homelessness. Patient reports that he has been evaluated for esophageal strictures as he has been experiencing dysphagia and lightheadedness with swallowing. Patient reports undergoing barium swallow several days ago at outside hospital. Patient reports that he is also being evaluated for stimulation of the vagal nerve with swallowing. Patient reports concern the chest pain is secondary to his aneurysm, my friends tell me this is a ticking time bomb and I need to catch it. Review of Systems Negative unless otherwise specified. Constitutional: Denies fever, chills, night sweats, recent weight loss. Skin: Denies rash. HEENT: Denies eye pain, visual changes, congestion, sore throat. Neck: Denies neck swelling, neck pain. Cardiopulmonary: Chest pain. GI: Denies nausea, vomiting, hematemesis, melena, abdominal pain. : No dysuria, frequency, hematuria, incontinence. Musculoskeletal: Denies myalgias, back pain, arthralgias. Hematologic: Denies lymphadenopathy, bleeding, bruising. Neurological: Denies headaches, seizures, muscle weakness, paresthesia, numbness or tingling. Psych: No anxiety, depression. Physical Exam Vital Signs: Listed on the chart. Reviewed. Medications: As listed on the chart Allergies: As listed on the chart PFSH: Patient reports occasional cigar use Physical Exam Appearance: Awake and alert, no apparent distress. Skin: No rash or lesions, warm and dry. Eyes: Pupils equal and reactive. Conjunctiva normal. ENT: Mucous membranes moist. Pharynx clear, uvula midline. Neck: Supple. Pulmonary: Air bilaterally with good air movement. No wheezing, no rhonchi, no rales. Cardiac: Normal rate and rhythm. No obvious murmur. Abdomen: Soft and nontender, nondistended, no mass. No guarding, no rebound. Musculoskeletal: Extremities warm and well perfused. No pedal edema bilaterally. Neurological: Clear speech. Moving all four extremities. Psychiatric: Appropriate mood and affect. EKG interpretation: Sinus bradycardia, heart rate 55. No ST segment changes, no T wave inversion. Medical Decision Making: Patient presents with chest pain, chronic in nature. Low suspicion for cardiac etiology. Patient with multiple concerns regarding his health care, discussed with patient at length that it is important to establish care through one system and maintain stable follow-up. EKG reassuring. Will obtain troponin, chest x-ray. Do not suspect dissection, patient's blood pressure 130/80, heart rate 50-60. Patient with equal blood pressures in bilateral upper extremities. Patient appears comfortable, well-appearing. Patient is pain-free. Recent cardiac MRI with stable aneurysm, EF 55%. Patient presented to ER 2 days ago with similar symptoms, some concern for secondary gain. ED course No leukocytosis, hemoglobin 12.1 stable from prior. Platelets 144, previously 150. INR 1. Normal kidney function, normal electrolytes. No elevation LFTs. Troponin x2 -. Chest x-ray without consolidation or infiltrate. Discussed with patient that findings are reassuring, heart score 3, stable for outpatient follow-up. Patient reports that he feels as if he is being dumped on the street , discussed again with patient that there is no indication for admission at this time and he has had multi (more content not included)... Normal [facility] Radiologyon 04-03-2021 XR Chest Single view Normal [facility] Work Phone: Risk Screen - Adult Emergenc yon 04-03-2021 Risk Screen - Adult Emergency Preferred Language: Preferred Language: Preferred Language for Discussing Health Care (patient/designee)Fran villalta Advanced Directives: Advance Directive/DNRno Advance Directive Information Givenpatient/family declined Family Violence Adult: Abuse Screen: Are you or have you been threatened or abused physically, emotionally, or sexually by anyoneno Learning Assessment (Patient): Learning Assessment (Patient): Patient is Able to be Assessed for Learningyes Factors Influencing Readiness to Learnacuteness of illness Factors that Impact Ability to Learnnone Devices/Methods Used to Communicatenone Learning Preferencesverbal instruction; written material Cultural Considerationsnone Developmental Considerationsnone Zoroastrian Considerationsnone Learning Assessment (Other Learner): Learning Assessment (Other Learner): Other learner availableno Pressure Injury/TB/Substance: Pressure Injury: Do you have a coughno Smoking Statusformer smoker Admission Risk Screen: Significant IndicatorsComplete CAGE: CAGE: Is this an injured patient at a Trauma Center ([facility]/[place] /[place]): no Electronic Signatures: Gracia Guaman ([place]) (Signed 03-Apr-2021 19:17) Authored: Preferred Language, Advanced Directives, Family Violence Adult, Learning Assessment (Patient), Learning Assessment (Other Learner), Pressure Injury/TB/Substance, Pressure Injury, CAGE Last Updated: 03-Apr-2021 19:17 by Gracia Guaman ([place]NN) Normal [facility] TROPONIN Ion 04-03-2021 Troponin I.cardiac [Mass/Vol] ng/mL Normal 0.00 - 0.03 [facility] Comment on above: Result Comment: LESS THAN 0.04 NG/ML: NEGATIVE REPEAT TESTING IN THREE TO SIX HOURS IF CLINICALLY INDICATED. 0.04 - 0.5 NG/ML: CONSISTENT WITH POSSIBLE CARDIAC DAMAGE AND POSSIBLE INCREASED CLINICAL RISK. SERIAL MEASUREMENTS MAY HELP ASSESS EXTENT OF MYOCARDIAL DAMAGE. >0.5 NG/ML: CONSISTENT WITH CARDIAC DAMAGE, INCREASED CLINICAL RISK AND MYOCARDIAL INFARCTION. SERIAL MEASUREMENTS MAY HELP ASSESS EXTENT OF MYOCARDIAL DAMAGE. . Note: Troponin I testing is performed using different testing methodology at [facility] than at other [facility]. Direct result comparisons should only be made within the same method. Performed By: #### T [facility] #### [address] [id number] Triage - EDon 04-03-2021 Triage - ED Chart Review: ARRIVAL INFORMATION Mode of Arrival: ambulance Agency Name: [facility] CHIEF COMPLAINT HOSEA ALVAREZ is a Male patient with a chief complaint of chest pain (Pt arrived via EMS with complaint of chest pressure, possible near syncope and intermittent chest pain.). Triage Date/Time: 03-Apr-2021 19:14 WILMAN: 2 Vital Signs: Temperature: 97.5F ( 36.4C) Blood Pressure: 129/86 Mean: Heart Rate: 60 Respiratory Rate: 20 Pulse Oximetry: 100% on room air, no respiratory support. Height: 5 feet 6 inches. 167.6 CM Weight: 187.3 pounds. Calculated 85.0 kg. (stated) Calculated BMI (kg/m2): 30.260 Calculated BSA (m2) 1.99 Patient has homicidal thoughts: no Risk Screens Suicide Risk Screen In the Past Month: Have you wished you were or wished you could go to sleep and not wake up no In the Past Month: Have you had any actual thoughts of killing yourself no In Your Lifetime: Have you ever done anything, started to do anything, or prepared to do anything to end your life no Molina Fall Scale Screening Has the patient fallen before (or is the patient in the ED as a result of a fall) has not had a fall Does the patient have an impaired gait does not have impaired gait Is the patient cognitively impaired not cognitively impaired Interventions: Molina Fall Interventions: LOW INTERVENTIONS: *patient oriented to surroundings and call system, * patient/family falls education completed and documented, *patients fall status communicated during bedside handoff, *whiteboard updated, *mode of toileting discussed with patient, *bed in low position with brakes locked, *call light in reach, * non-skid footwear TRAVEL HISTORY Travel History Coronavirus Screening: no exposure or symptoms Travel Exposure History: NO travel to International locations in the past 30 days PAIN Pain Scale Used: SHANNON Past Medical History: Past Medical History Reviewedyes Electronic Signatures: Gracia Guaman ([place]) (Signed 03-Apr-2021 19:16) Authored: Quick Triage, Risk Screens, Pain, Travel History, Chart Review, Scores, Past Medical History Last Updated: 03-Apr-2021 19:16 by Gracia Guaman (RN) Normal [facility] Troponin I, Serumon 04-03-20 21 Troponin I.cardiac [Mass/Vol] ng/mL See Below [facility] Work Phone: Comment on above: Reference Range: 0.0 0 - 0.03LESS THAN 0.04 NG/ML: NEGATIVEREPEAT TESTING IN THREE TO SIX HOURSIF CLINICALLY INDICATED.0.04 - 0.5 NG/ML: CONSISTENT WITH POSSIBLECARDIAC DAMAGE AND POSSIBLE INCREASEDCLINICAL RISK.SERIAL MEASUREMENTS MAY HELP ASSESS EXTENT OFMYOCARDIAL DAMAGE.>0.5 NG/ML: CONSISTENT WITH CARDIAC DAMAGE,INCREASED CLINICAL RISK AND MYOCARDIALINFARCTION. SERIAL MEASUREMENTS MAY HELPASSESS EXTENT OF MYOCARDIAL DAMAGE..Note: Troponin I testing is performed using different testing methodology at [facility] than at other [facility]. Direct result comparisons should only be made within the same method. Troponin I.cardiac [Mass/Vol] ng/mL See Below [facility] Work Phone: Comment on above: Reference Range: 0.0 0 - 0.03LESS THAN 0.04 NG/ML: NEGATIVEREPEAT TESTING IN THREE TO SIX HOURSIF CLINICALLY INDICATED.0.04 - 0.5 NG/ML: CONSISTENT WITH POSSIBLECARDIAC DAMAGE AND POSSIBLE INCREASEDCLINICAL RISK.SERIAL MEASUREMENTS MAY HELP ASSESS EXTENT OFMYOCARDIAL DAMAGE.>0.5 NG/ML: CONSISTENT WITH CARDIAC DAMAGE,INCREASED CLINICAL RISK AND MYOCARDIALINFARCTION. SERIAL MEASUREMENTS MAY HELPASSESS EXTENT OF MYOCARDIAL DAMAGE..Note: Troponin I testing is performed using different testing methodology at [facility] than at other [facility]. Direct result comparisons should only be made within the same method. BASIC METABOLIC PANELon 03-23 Anion gap [Moles/Vol] 13 mmol/L Normal 10 - 20 [facility] Comment on above: Performed By: #### B MP #### [address] [id number] Calcium [Mass/Vol] 9.1 mg/dL Normal 8.6 - 10.3 [facility] Comment on above: Performed By: #### B MP #### [address] [id number] Chloride [Moles/Vol] 103 mmol/L Normal 98 - 107 [facility] Comment on above: Performed By: #### B MP #### [address] [id number] Creatinine [Mass/Vol] 0.92 mg/dL Normal 0.50 - 1.30 [facility] Comment on above: Performed By: #### B MP #### [address] [id number] GFR- AM. >60 Normal >60 [facility] Comment on above: Result Comment: CALC ULATIONS OF ESTIMATED GFR ARE PERFORMED USING THE MDRD STUDY EQUATION FOR THE IDMS-TRACEABLE CREATININE METHODS. CLIN CHEM 2007;53:766-72 Performed By: #### B MP #### [address] [id number] GFR-NON AM. >60 Normal >60 [facility] Comment on above: Performed By: #### B MP #### [address] [id number] Glucose [Mass/Vol] 99 mg/dL Normal 74 - 99 [facility] Comment on above: Performed By: #### B MP #### [address] [id number] HCO3 (Bld) [Moles/Vol] 25 mmol/L Normal 21 - 32 [facility] Comment on above: Performed By: #### B MP #### [address] [id number] Potassium [Moles/Vol] 3.7 mmol/L Normal 3.5 - 5.3 [facility] Comment on above: Performed By: #### B MP #### [address] [id number] Sodium [Moles/Vol] 137 mmol/L Normal 136 - 145 [facility] Comment on above: Performed By: #### B MP #### [address] [id number] Urea nitrogen [Mass/Vol] 15 mg/dL Normal 6 - 23 [facility] Comment on above: Performed By: #### B MP #### [address] [id number] CBC AND DIFFERENTIALon 04-02 % AUTOMATED IMMATURE GRAN 0.0 % Normal 0.0 - 0.9 [facility] Comment on above: Result Comment: Kath ture Granulocyte Count (IG) includes promyelocytes, myelocytes and metamyelocytes but does not include bands. Percent differential counts (%) should be interpreted in the context of the absolute cell counts (cells/L). Performed By: #### T ROP2 #### [address] [id number] Basophils (Bld) [#/Vol] 0.02 10*3/uL Normal 0.00 - 0.10 [facility] Comment on above: Performed By: #### T ROP2 #### [address] [id number] Basophils/100 WBC (Bld) 0.6 % Normal 0.0 - 2.0 [facility] Comment on above: Performed By: #### T ROP2 #### [address] [id number] Eosinophils (Bld) [#/Vol] 0.06 10*3/uL Normal 0.00 - 0.70 [facility] Comment on above: Performed By: #### T ROP2 #### [address] [id number] Eosinophils/100 WBC (Bld) 1.9 % Normal 0.0 - 6.0 [facility] Comment on above: Performed By: #### T ROP2 #### [address] [id number] Erythrocyte distribution width (RBC) [Ratio] 12.8 % Normal 11.5 - 14.5 [facility] Comment on above: Performed By: #### T ROP2 #### [address] [id number] Hematocrit (Bld) [Volume fraction] 38.2 % Low 41.0 - 52.0 [facility] Comment on above: Performed By: #### T ROP2 #### [address] [id number] Hemoglobin (Bld) [Mass/Vol] 12.8 g/dL Low 13.5 - 17.5 [facility] Comment on above: Performed By: #### T ROP2 #### [address] [id number] Lymphocytes (Bld) [#/Vol] 0.91 10*3/uL Low 1.20 - 4.80 [facility] Comment on above: Performed By: #### T ROP2 #### [address] [id number] Lymphocytes/100 WBC (Bld) 29.0 % Normal 13.0 - 44.0 [facility] Comment on above: Performed By: #### T ROP2 #### [address] [id number] MCHC (RBC) [Mass/Vol] 33.5 g/dL Normal 32.0 - 36.0 [facility] Comment on above: Performed By: #### T ROP2 #### [address] [id number] MCV (RBC) [Entitic vol] 85 fL Normal 80 - 100 [facility] Comment on above: Performed By: #### T ROP2 #### [address] [id number] Monocytes (Bld) [#/Vol] 0.33 10*3/uL Normal 0.10 - 1.00 [facility] Comment on above: Performed By: #### T ROP2 #### [address] [id number] Monocytes/100 WBC (Bld) 10.5 % Normal 2.0 - 10.0 [facility] Comment on above: Performed By: #### T ROP2 #### [address] [id number] Neutrophils (Bld) [#/Vol] 1.82 10*3/uL Normal 1.20 - 7.70 [facility] Comment on above: Performed By: #### T ROP2 #### [address] [id number] Neutrophils/100 WBC (Bld) 58.0 % Normal 40.0 - 80.0 [facility] Comment on above: Performed By: #### T ROP2 #### [address] [id number] Platelets (Bld) [#/Vol] 150 10*3/uL Normal 150 - 450 [facility] Comment on above: Performed By: #### T ROP2 #### [address] [id number] RBC 4.50 x10E12/L Normal 4.50 - 5.90 [facility] Comment on above: Performed By: #### T ROP2 #### [address] [id number] WBC (Bld) [#/Vol] 3.1 10*3/uL Low 4.4 - 11.3 [facility] Comment on above: Performed By: #### T ROP2 #### [address] [id number] CHEST 1 VIEWon 04-02-2021 CHEST 1 VIEW STUDY: Chest Radiograph; 04/01/2021 INDICATION: Upper right chest pain. COMPARISON: 03/23/2021 CXR. ACCESSION NUMBER(S): [id number] ORDERING CLINICIAN: URSULA CISNEROS MD TECHNIQUE: Frontal chest was obtained at 2244 hours. FINDINGS: CARDIOMEDIASTINAL SILHOUETTE: Cardiomediastinal silhouette is normal in size and configuration. LUNGS: Lungs are clear. ABDOMEN: No remarkable upper abdominal findings. BONES: No acute osseous changes. IMPRESSION: No acute thoracic findings. Signed by Kay Rodríguez II, MD Electronically signed by: KAY RODRÍGUEZ MD, PHD Normal [facility] Provider Note - ED v2on 03-23 Provider Note - ED v2 Provider Note - ED v2: Chart Review: HISTORY OF PRESENTING ILLNESS HOSEA is a 50 year old Male and was seen by me at 01-Apr-2021 22:20 for a chief complaint of chest pain. The historian is the patient. Additional Details: Chief complaint chest pain History of present illness this is a 51-year-old male who is here with midsternal right-sided chest pain., Is here with history of ascending aortic aneurysm and also possible esophageal stricture is not clear to which pain this is. Denies cough hemoptysis hematemesis hematochezia was brought here by squad triaged to room 1 greeted immediately upon arrival respiratory CT of the chest abdomen pelvis were done February 21, 2021 revealed a 4.6 ascending thoracic aneurysm but no dissection no rupture patient was given follow-up as apparently to see Dr. Richard Haro as an outpatient. Arrives here with a blood pressure 123/74 pulse of 64 respiratory rate 18 pulse ox 98% Triage Information: Most recent Vital Sign Value Date Temp (F): 97.8 04-01-2021 22:18 Temp (C): 36.6 04-01-2021 22:18 Heart Rate (beats/min): 64 04-01-2021 22:18 Respirations (breaths/min): 18 04-01-2021 22:18 SpO2 (%): 98 04-01-2021 22:18 BP Systolic (mm Hg): 123 04-01-2021 22:18 BP Diastolic (mm Hg): 74 04-01-2021 22:18 PAST MEDICAL HISTORY ATTESTATION: I have reviewed and confirmed nurse's/medic's notes for patient's medications, allergies, and medical, surgical, family and social history ALLERGIES/INTOLERANCES: Allergy Allergen: Erythromycin Base Type: Drug Reaction: Unknown Allergen: caffine Type: Food Reaction: Other Allergen: Cipro Type: Drug Reaction: Unknown Intolerance Allergen: polyethylene glycol 3350 Type: Drug Reaction: GI Upset HEALTH HISTORY: Family History Name:No family history of cancer Code:Z78.9 Name:No family history of coronary artery disease Code:Z78.9 Medical History Name:Chest pain Code:R07.9 Name:Renal artery stenosis Code:I70.1 Name:Pulmonary embolism Code:I26.99 Name:History of COVID-19 Code:Z86.16 Name:Ascending aortic aneurysm Code:I71.2 Name:Bipolar disorder Code:F31.9 Name:Palpitations Code:R00.2 Social History Name:Homeless Code:Z59.0 Name:Does not use illicit drugs Code:Z78.9 Name:Consumes alcohol occasionally Code:Z78.9 Name:Former smoker Code:Z87.891 OUTPATIENT MEDICATIONS: Home Medications Review Status for Reconciliation: N/A Med Status: Patient Currently Takes Medications Drug Name: amoxicillin-clavulanate 875 mg-125 mg oral tablet Instructions: 1 tab(s) orally every 12 hours Drug Name: amLODIPine 5 mg oral tablet Instructions: 1 tab(s) orally once a day Drug Name: atorvastatin 10 mg oral tablet Instructions: 1 tab(s) orally once a day Drug Name: azelastine 137 mcg/inh (0.1%) nasal spray Instructions: 2 spray(s) nasal 2 times a day Drug Name: cholecalciferol 5000 intl units (125 mcg) oral capsule Instructions: 1 cap(s) orally once a day Drug Name: clonazePAM 0.5 mg oral tablet Instructions: 1 tab(s) orally once a day Drug Name: cloNIDine 0.1 mg oral tablet Instructions: 1 tab(s) orally once a day, As Needed for BP above 140/90 Drug Name: docusate sodium 100 mg oral tablet Instructions: 1 tab(s) orally 2 times a day Drug Name: hydrALAZINE 10 mg oral tablet Instructions: 1 tab(s) orally once a day Drug Name: losartan 50 mg oral tablet Instructions: 1 tab(s) orally once a day Drug Name: Melatonin 5 mg oral tablet Instructions: 1 tab(s) orally once a day (at bedtime) Drug Name: metoprolol succinate 25 mg oral tablet, extended release Instructions: 1 tab(s) orally once a day Drug Name: Multiple Vitamins oral tablet Instructions: 1 tab(s) orally once a day Drug Name: pantoprazole 40 mg oral delayed release tablet Instructions: 1 tab(s) orally once a day Drug Name: sucralfate 1 g/10 mL oral suspension Instructions: 10 milliliter(s) orally 4 times a day (before meals and at bedtime) Drug Name: triamterene-hydrochlorot hiazide 37.5 mg-25 mg oral capsule Instructions: 1 cap(s) orally once a day Drug Name: zinc (as acetate) 50 mg oral capsule Instructions: 1 cap(s) orally once a day Drug Name: dexamethasone 4 mg oral tablet Instructions: 1 tab(s) orally once a day Drug Name: lidocaine 2% mucous membrane solution Instructions: 5 milliliter(s) mucous membrane every 4 hours, As Needed for upset stomach Drug Name: AneCream 5 topical cream Instructions: Apply topically to affected area Drug Name: pantoprazole 40 mg oral delayed release tablet Instructions: 1 tab(s) orally once a day SIGNIFICANT EVENTS: Past Medical History Description:Hypertension (HTN) Description:Abdominal Aortic Aneurysm (AAA) Description:Heart murmur Description:Arrythmia Additional Notes: inverted T waves Description:RENAL STENOSIS REVIEW OF SYSTEMS All o (more content not included)... Normal [facility] TROPONIN Ion 04-02-2021 Troponin I.cardiac [Mass/Vol] ng/mL Normal 0.00 - 0.03 [facility] Comment on above: Result Comment: LESS THAN 0.04 NG/ML: NEGATIVE REPEAT TESTING IN THREE TO SIX HOURS IF CLINICALLY INDICATED. 0.04 - 0.5 NG/ML: CONSISTENT WITH POSSIBLE CARDIAC DAMAGE AND POSSIBLE INCREASED CLINICAL RISK. SERIAL MEASUREMENTS MAY HELP ASSESS EXTENT OF MYOCARDIAL DAMAGE. >0.5 NG/ML: CONSISTENT WITH CARDIAC DAMAGE, INCREASED CLINICAL RISK AND MYOCARDIAL INFARCTION. SERIAL MEASUREMENTS MAY HELP ASSESS EXTENT OF MYOCARDIAL DAMAGE. . Note: Troponin I testing is performed using different testing methodology at [facility] than at other [facility]. Direct result comparisons should only be made within the same method. Performed By: #### T ROP2 #### [facility] [address], [place] [id number] Triage - EDon 04-02-2021 Triage - ED Chart Review: ARRIVAL INFORMATION Mode of Arrival: ambulance Agency Name: [facility] CHIEF COMPLAINT HOSEA ALVAREZ is a Male patient with a chief complaint of chest pain (x 1 hour pain increases with movement). Triage Date/Time: 01-Apr-2021 22:19 WILMAN: 2 Vital Signs: Temperature: 97.8F ( 36.6C) Blood Pressure: 123/74 Mean: Heart Rate: 64 Respiratory Rate: 18 Pulse Oximetry: 98% on room air, no respiratory support. Height: 5 feet 5 inches. 165.1 CM Weight: 187.3 pounds. Calculated 85.0 kg. Calculated BMI (kg/m2): 31.183 Calculated BSA (m2) 1.97 Lynda Coma Scale: Best Eye Response: (E4) spontaneous Best Motor Response: (M6) obeys commands Best Verbal Response: (V5) oriented Lynda Score: 15 Cough lasting greater than 3 weeks: no Allergies: yes Patient has homicidal thoughts: no Risk Screens Suicide Risk Screen In the Past Month: Have you wished you were or wished you could go to sleep and not wake up no In the Past Month: Have you had any actual thoughts of killing yourself no In Your Lifetime: Have you ever done anything, started to do anything, or prepared to do anything to end your life no Molina Fall Scale Screening Has the patient fallen before (or is the patient in the ED as a result of a fall) has not had a fall Does the patient have an impaired gait does not have impaired gait Is the patient cognitively impaired not cognitively impaired Interventions: Molina Fall Interventions: LOW INTERVENTIONS: *patient oriented to surroundings and call system, * patient/family falls education completed and documented, *patients fall status communicated during bedside handoff, *whiteboard updated, *mode of toileting discussed with patient, *bed in low position with brakes locked, *call light in reach, * non-skid footwear TRAVEL HISTORY Travel History Coronavirus Screening: no exposure or symptoms Travel Exposure History: NO travel to International locations in the past 30 days PAIN Pain Scale Used: SHANNON Past Medical History: Past Medical History Reviewedyes Electronic Signatures: Aneudy Oakley (BROOK[place]NN) (Signed 01-Apr-2021 22:23) Authored: Quick Triage, Risk Screens, Pain, Travel History, Chart Review, Scores, Past Medical History Last Updated: 01-Apr-2021 22:23 by Aneudy Oakley (RN) Normal [facility] Complete Blood Count + Diffe rentialon 04-01-2021 Basophils/100 WBC (Bld) 0.6 % 0.0 - 2.0 [facility] [address] Work Phone: Erythrocyte distribution width (RBC) [Ratio] 12.8 % See Below [facility] [address] Work Phone: Comment on above: Reference Range: 11. 5 - 14.5 Hematocrit (Bld) [Volume fraction] 38.2 % below low threshold See Below [facility] [address] Work Phone: Comment on above: Reference Range: 41. 0 - 52.0 Hemoglobin (Bld) [Mass/Vol] 12.8 g/dL below low threshold See Below [facility] [address] Work Phone: Comment on above: Reference Range: 13. 5 - 17.5 Lymphocytes/100 WBC (Bld) 29.0 % See Below [facility] [address] Work Phone: Comment on above: Reference Range: 13. 0 - 44.0 MCHC (RBC) [Mass/Vol] 33.5 g/dL See Below [facility] [address] Work Phone: Comment on above: Reference Range: 32. 0 - 36.0 MCV (RBC) [Entitic vol] 85 fL 80 - 100 [facility] [address] Work Phone: Monocytes/100 WBC (Bld) 10.5 % 2.0 - 10.0 [facility] Work Phone: Neutrophils/100 WBC (Bld) 58.0 % See Below [facility] [address] Work Phone: Comment on above: Reference Range: 40. 0 - 80.0 Platelets (Bld) [#/Vol] 150 10*3/uL 150 - 450 [facility] [address] Work Phone: RBC (Bld) [#/Vol] 4.50 {x10E12/L} See Below [facility] [address] Work Phone: Comment on above: Reference Range: 4.5 0 - 5.90 WBC (Bld) [#/Vol] 3.1 10*3/uL below low threshold 4.4 - 11.3 [facility] [address] Work Phone: Complete Blood Count + Differential 0.02 {x10E9/L} See Below [facility] [address] Work Phone: Comment on above: Reference Range: 0.0 0 - 0.10 Complete Blood Count + Differential 0.06 {x10E9/L} See Below [facility] [address] Work Phone: Comment on above: Reference Range: 0.0 0 - 0.70 Complete Blood Count + Differential 0.33 {x10E9/L} See Below [facility] [address] Work Phone: Comment on above: Reference Range: 0.1 0 - 1.00 Complete Blood Count + Differential 0.91 {x10E9/L} below low threshold See Below [facility] [address] Work Phone: Comment on above: Reference Range: 1.2 0 - 4.80 Complete Blood Count + Differential 1.82 {x10E9/L} See Below [facility] Work Phone: Comment on above: Reference Range: 1.2 0 - 7.70 Complete Blood Count + Differential 1.9 % 0.0 - 6.0 [facility] Work Phone: Complete Blood Count + Differential 0.0 % 0.0 - 0.9 [facility] Work Phone: Comment on above: Immature Granulocyte Count (IG) includes promyelocytes, myelocytes and metamyelocytes but does not include bands. Percent differential counts (%) should be interpreted in the context of the absolute cell counts (cells/L). Laboratory - Chemistry and C hemistry - challengeon 04-01-2021 Anion gap [Moles/Vol] 13 mmol/L 10 - 20 [facility] [address] Work Phone: Calcium [Mass/Vol] 9.1 mg/dL 8.6 - 10.3 [facility] Work Phone: Chloride [Moles/Vol] 103 mmol/L 98 - 107 [facility] [address] Work Phone: CO2 [Moles/Vol] 25 mmol/L 21 - 32 [facility] [address] Work Phone: Creatinine [Mass/Vol] 0.92 mg/dL See Below [facility] [address] Work Phone: Comment on above: Reference Range: 0.5 0 - 1.30 Glucose [Mass/Vol] 99 mg/dL 74 - 99 [facility] [address] Work Phone: Potassium [Moles/Vol] 3.7 mmol/L 3.5 - 5.3 [facility] [place] Work Phone: Sodium [Moles/Vol] 137 mmol/L 136 - 145 [facility] [place] Work Phone: Urea nitrogen [Mass/Vol] 15 mg/dL 6 - 23 [facility] [place] Work Phone: No Panel Informationon 04-01 >60 >60 [facility] [place] Work Phone: Comment on above: CALCULATIONS OF NIKOLE MATED GFR ARE PERFORMED USING THE MDRD STUDY EQUATION FOR THE IDMS-TRACEABLE CREATININE METHODS. CLIN CHEM 2007;53:766-72 [email or web address]?[email or web address] e?[email or web address]=[id number]&Da te=06-29-2021&Time=22%3a 30%3a28%3a00&TestType=EC G&Site=11&OutputType=PDF &Ext=PDF [facility] [address] Work Phone: Normal sinus rhythm [facility] Work Phone: Normal [facility] Work Phone: [phone] [facility] Work Phone: [phone] [facility] [address] Work Phone: [phone] [facility] Work Phone: [phone] [facility] Work Phone: [phone] [facility] Work Phone: [phone] [facility] Work Phone: [phone] [facility] Work Phone: [phone] [facility] [address] Work Phone: [phone] [facility] Work Phone: [phone] [facility] Work Phone: [phone] [facility] Work Phone: [phone] [facility] Work Phone: [phone] [facility] Work Phone: [phone] [facility] Work Phone: Radiologyon 04-01-2021 XR Chest Single view Normal [facility] [address] Work Phone: Troponin I, Serumon 04-01-20 21 Troponin I.cardiac [Mass/Vol] ng/mL See Below [facility] [address] Work Phone: Comment on above: Reference Range: 0.0 0 - 0.03LESS THAN 0.04 NG/ML: NEGATIVEREPEAT TESTING IN THREE TO SIX HOURSIF CLINICALLY INDICATED.0.04 - 0.5 NG/ML: CONSISTENT WITH POSSIBLECARDIAC DAMAGE AND POSSIBLE INCREASEDCLINICAL RISK.SERIAL MEASUREMENTS MAY HELP ASSESS EXTENT OFMYOCARDIAL DAMAGE.>0.5 NG/ML: CONSISTENT WITH CARDIAC DAMAGE,INCREASED CLINICAL RISK AND MYOCARDIALINFARCTION. SERIAL MEASUREMENTS MAY HELPASSESS EXTENT OF MYOCARDIAL DAMAGE..Note: Troponin I testing is performed using different testing methodology at [facility] than at other [facility]. Direct result comparisons should only be made within the same method. CBC Auto DifferentialOrdered By: Tasneem Story on 03-30-2021 Basophils (Bld) [#/Vol] 0.0 10*3/uL 0.0 - 0.2 K/uL [facility] [place] Phone: Basophils/100 WBC (Bld) 1.0 % [facility] [place] Phone: Eosinophils (Bld) [#/Vol] 0.0 10*3/uL 0.0 - 0.7 K/uL [facility] [place] Phone: Eosinophils/100 WBC (Bld) 1.7 % [facility] [place] Phone: Hematocrit (Bld) [Volume fraction] 37.2 % Low 42.0 - 52.0 % [facility] [place] Phone: Hemoglobin.gastrointe stinal spec 1 Ql (Stl) 12.4 g/dL Low 14.0 - 18.0 g/dL [facility] [place] Phone: Interpretation and review of laboratory results Abnormal [facility] [place] Phone: Lymphocytes (Bld) [#/Vol] 0.6 10*3/uL Low 1.0 - 4.8 K/uL [facility] [place] Phone: Lymphocytes/100 WBC (Bld) 17.0 % [facility] [place] Phone: MCH (RBC) [Entitic mass] 28.6 pg 27.0 - 31.3 pg [facility] [place] Phone: MCHC (RBC) [Mass/Vol] 33.4 % 33.0 - 37.0 % [facility] [place] Phone: MCV (RBC) [Entitic vol] 85.6 fL 80.0 - 100.0 [facility]L [place] Work Phone: Monocytes (Bld) [#/Vol] 0.4 10*3/uL 0.2 - 0.8 K/uL [facility]: Monocytes/100 WBC (Bld) 12.2 % [facility] [place] Phone: Neutrophils Absolute 2.4 K/uL 1.4 - 6 .5 K/uL [facility] Phone: Neutrophils/100 WBC (Bld) 70.0 % [facility] [place] Phone: Platelet distribution width (Bld) [Ratio] 13.8 % 11.5 - 14.5 % [facility] [place] Phone: PLATELET SLIDE REVIEW Normal [facility] [place] Work Phone: Platelets (Bld) [#/Vol] 139 10*3/uL 130 - 400 K/uL [facility] [place] Work Phone: RBC (Bld) [#/Vol] 4.35 10*6/uL Low [facility] [place] Phone: RBC (Bld) [#/Vol] Normal [facility] Work Phone: WBC (Bld) [#/Vol] 3.4 10*3/uL Low 4.8 - 10.8 K/uL [facility]: [facility] [place] Work Phone: CBC With Platelet and Differ entialon 03-30-2021 Basophils (Bld) [#/Vol] 0.0 10*3/uL Normal 0.0-0.2 [facility] Comment on above: Performed By: #### C BCWD #### [facility] [address] [place] [address] RBC morphology finding Nom (Bld) Normal Normal [facility] Comment on above: Performed By: #### C BCWD #### [facility] [address] [place] [address] Basophils/100 WBC (Bld) 1.0 % Normal [facility] Comment on above: Performed By: #### C BCWD #### [facility] [address] [place] [address] Eosinophils (Bld) [#/Vol] 0.0 10*3/uL Normal 0.0-0.7 [facility] Comment on above: Performed By: #### C BCWD #### [facility] [address] [place] [address] Eosinophils/100 WBC (Bld) 1.7 % Normal [facility] Comment on above: Performed By: #### C BCWD #### [facility] [address] [place] [address] Erythrocyte distribution width (RBC) [Ratio] 13.8 % Normal 11.5-14.5 [facility] Comment on above: Performed By: #### C BCWD #### [facility] [address] [place] [address] Hematocrit (Bld) [Volume fraction] 37.2 % Low 42.0-52.0 [facility] Comment on above: Performed By: #### C BCWD #### [facility] [address] [place] [address] Hemoglobin (Bld) [Mass/Vol] 12.4 g/dL Low 14.0-18.0 [facility] Comment on above: Performed By: #### C BCWD #### [facility] [address] [place] [address] Lymphocytes (Bld) [#/Vol] 0.6 10*3/uL Low 1.0-4.8 [facility] Comment on above: Performed By: #### C BCWD #### [facility] [address] [place] [address] Lymphocytes/100 WBC (Bld) 17.0 % Normal [facility] Comment on above: Performed By: #### C BCWD #### [facility] [address] [place] [address] MCH (RBC) [Entitic mass] 28.6 pg Normal 27.0-31.3 [facility] Comment on above: Performed By: #### C BCWD #### [facility] [address] [place] [address] MCHC 33.4 % Normal 33.0-37.0 [facility] Comment on above: Performed By: #### C BCWD #### [facility] [address] [place] [address] MCV (RBC) [Entitic vol] 85.6 fL Normal 80.0-100.0 [facility] Comment on above: Performed By: #### C BCWD #### [facility] [address] [place] [address] Monocytes (Bld) [#/Vol] 0.4 10*3/uL Normal 0.2-0.8 [facility] Comment on above: Performed By: #### C BCWD #### [facility] [address] [place] [address] Monocytes/100 WBC (Bld) 12.2 % Normal [facility] Comment on above: Performed By: #### C BCWD #### [facility] [address] [place] [address] Neutrophils (Bld) [#/Vol] 2.4 10*3/uL Normal 1.4-6.5 [facility] Comment on above: Performed By: #### C BCWD #### [facility] [address] [place] [address] Neutrophils/100 WBC (Bld) 70.0 % Normal [facility] Comment on above: Performed By: #### C BCWD #### [facility] [address] [place] [address] Platelets (Bld) [#/Vol] 139 10*3/uL Normal 130-400 [facility] Comment on above: Performed By: #### C BCWD #### [facility] [address] [place] [address] RBC (Bld) [#/Vol] 4.35 10*6/uL Low 4.70-6.10 [facility] Comment on above: Performed By: #### C BCWD #### [facility] [address] [place] [address] WBC (Bld) [#/Vol] 3.4 10*3/uL Low 4.8-10.8 [facility] Comment on above: Performed By: #### C BCWD #### [facility] [address] [place] [address] Platelet Slide Review Normal Normal [facility] Comment on above: Performed By: #### C BCWD #### [facility] [address] [place] [address] Comprehensive Metabolic Pane bart 03-30-2021 Albumin [Mass/Vol] 4.1 g/dL Normal 3.5-4.6 [facility] Comment on above: Performed By: #### C BCWD #### [facility] [address] [place] [address] ALP [Catalytic activity/Vol] 63 U/L Normal 35-104 [facility] Comment on above: Performed By: #### C BCWD #### [facility] [address] [place] [address] ALT [Catalytic activity/Vol] 16 U/L Normal 0-41 [facility] Comment on above: Performed By: #### C BCWD #### [facility] [address] [place] [address] Anion gap [Moles/Vol] 8 mmol/L Low 9-15 [facility] Comment on above: Performed By: #### C BCWD #### [facility] [address] [place] [address] AST [Catalytic activity/Vol] 15 U/L Normal 0-40 [facility] Comment on above: Performed By: #### C BCWD #### [facility] [address] [place] [address] Bilirubin [Mass/Vol] 0.3 mg/dL Normal 0.2-0.7 [facility] Comment on above: Performed By: #### C BCWD #### [facility] [address] [place] [address] Calcium [Mass/Vol] 9.2 mg/dL Normal 8.5-9.9 [facility] Comment on above: Performed By: #### C BCWD #### [facility] [address] [place] [address] Chloride [Moles/Vol] 102 mmol/L Normal 95-107 [facility] Comment on above: Performed By: #### C BCWD #### [facility] [address] [place] [address] CO2 [Moles/Vol] 30 mmol/L Normal 20-31 [facility] Comment on above: Performed By: #### C BCWD #### [facility] [address] [place] [address] Creatinine [Mass/Vol] 0.84 mg/dL Normal 0.70-1.20 [facility] Comment on above: Performed By: #### C BCWD #### [facility] [address] [place] [address] GFR >60.0 Normal >60 [facility] Comment on above: Result Comment: >60 mL/min/1.73m2 EGFR, calc. for ages 18 and older using the MDRD formula (not corrected for weight), is valid for stable renal function. Performed By: #### C BCWD #### [facility] [address] [place] [address] GFR/1.73 sq M.predicted among blacks MDRD (S/P/Bld) [Vol rate/Area] mL/min/{1.73_m2} Normal >60 [facility] Comment on above: Result Comment: >60 mL/min/1.73m2 EGFR, calc. for ages 18 and older using the MDRD formula (not corrected for weight), is valid for stable renal function. Performed By: #### C BCWD #### [facility] [address] [place] [address] Globulin (S) [Mass/Vol] 2.9 g/dL Normal 2.3-3.5 [facility] Comment on above: Performed By: #### C BCWD #### [facility] [address] [place] [address] Glucose [Mass/Vol] 95 mg/dL Normal 70-99 [facility] Comment on above: Performed By: #### C BCWD #### [facility] [address] [place] [address] Potassium [Moles/Vol] 4.1 mmol/L Normal 3.4-4.9 [facility] Comment on above: Performed By: #### C BCWD #### [facility] [address] [place] [address] Protein [Mass/Vol] 7.0 g/dL Normal 6.3-8.0 [facility] Comment on above: Performed By: #### C BCWD #### [facility] [address] [place] [address] Sodium [Moles/Vol] 140 mmol/L Normal 135-144 [facility] Comment on above: Performed By: #### C BCWD #### [facility] [address] [place] [address] Urea nitrogen [Mass/Vol] 9 mg/dL Normal 6-20 [facility] Comment on above: Performed By: #### C BCWD #### [facility] [address] [place] [address] Comprehensive Metabolic Pane lOrdered By: Tasneem Story on 03-30-2021 Albumin [Mass/Vol] 4.1 g/dL 3.5 - 4.6 g/dL [facility] [place] Work Phone: ALP (Bld) [Catalytic activity/Vol] 63 U/L 35 - 104 U/L [facility] [place] Work Phone: ALT [Catalytic activity/Vol] 16 U/L 0 - 41 U/L [facility] [place] Work Phone: Anion gap [Moles/Vol] 8 mmol/L Low [facility] Work Phone: AST [Catalytic activity/Vol] 15 U/L 0 - 40 U/L [facility] [place] Work Phone: Bilirubin [Mass/Vol] 0.3 mg/dL 0.2 - 0 .7 mg/dL [facility] [place] Work Phone: Calcium [Mass/Vol] 9.2 mg/dL 8.5 - 9.9 mg/dL [facility] [place] Work Phone: Chloride [Moles/Vol] 102 mmol/L [facility] [place] Work Phone: CO2 [Moles/Vol] 30 mmol/L [facility] Work Phone: Creatinine [Mass/Vol] 0.84 mg/dL 0.70 - 1.20 mg/dL [facility] [place] Work Phone: Free PSA/Total PSA [Mass fraction] 7.0 g/dL 6.3 - 8.0 g/dL [facility] [place] Work Phone: GFR >60.0 >60 [facility] [place] Work Phone: Comment on above: >60 mL/min/1.73m2 EG FR, calc. for ages 18 and older using the MDRD formula (not corrected for weight), is valid for stable renal function. GFR Non- >60.0 >60 [facility] [place] Work Phone: Comment on above: >60 mL/min/1.73m2 EG FR, calc. for ages 18 and older using the MDRD formula (not corrected for weight), is valid for stable renal function. Globulin (S) [Mass/Vol] 2.9 g/dL 2.3 - 3.5 g/dL [facility] [place] Phone: Glucose [Mass/Vol] 95 mg/dL 70 - 99 mg/dL [facility] Phone: Interpretation and review of laboratory results Abnormal [facility]: Potassium [Moles/Vol] 4.1 mmol/L [facility] [place] Phone: Sodium [Moles/Vol] 140 mmol/L [facility] Phone: Urea nitrogen (BldV) [Mass/Vol] 9 mg/dL 6 - 20 mg/dL [facility] Phone: [place] ESOPHAGRAMOrdered By: Gael Carter on 03-30-2021 Unremarkable esophagram. [facility] [place] Phone: EXAMINATION: FL ESOPHAGRAM HISTORY: R13.10 Dysphagia, unspecified type ICD10. TECHNIQUE: A biphasic examination of the esophagus was performed utilizing effervescent granules, high density barium and low density barium. Fluoroscopic dose: 10.2 mGy RESULT: Caliber: Normal. Distal Stricture/Ring: None. Motility: Essentially normal. Small amount of retrograde escape when swallowing large bolus. Hiatal Hernia: None. Reflux: None elicited. Gastric Cardia: Normal Other Findings: No other significant abnormality. [facility] [place] Phone: [place], po Incoming Radiant Results From [employer] - 03/30/2021 2:03 PM EDT EXAMINATION: FL ESOPHAGRAM HISTORY: R13.10 Dysphagia, unspecified type ICD10. TECHNIQUE: A biphasic examination of the esophagus was performed utilizing effervescent granules, high density barium and low density barium. Fluoroscopic dose: 10.2 mGy RESULT: Caliber: Normal. Distal Stricture/Ring: None. Motility: Essentially normal. Small amount of retrograde escape when swallowing large bolus. Hiatal Hernia: None. Reflux: None elicited. Gastric Cardia: Normal Other Findings: No other significant abnormality. IMPRESSION: Unremarkable esophagram. [facility] [place] Phone: [facility] [place] Phone: FL ESOPHAGRAMon 03-30-2021 FL ESOPHAGRAM EXAMINATION: FL ESOPHAGRAM HISTORY: R13.10 Dysphagia, unspecified type ICD10. TECHNIQUE: A biphasic examination of the esophagus was performed utilizing effervescent granules, high density barium and low density barium. Fluoroscopic dose: 10.2 mGy RESULT: Caliber: Normal. Distal Stricture/Ring: None. Motility: Essentially normal. Small amount of retrograde escape when swallowing large bolus. Hiatal Hernia: None. Reflux: None elicited. Gastric Cardia: Normal Other Findings: No other significant abnormality. IMPRESSION: Unremarkable esophagram. Interpreted by: Elgin Knowles MD Signed by: Elgin Knowles MD 03/30/21 Final result Normal [facility] Magnesiumon 03-30-2021 Magnesium [Mass/Vol] 2.0 mg/dL Normal 1.7-2.4 [facility] Comment on above: Performed By: #### C BCWD #### [facility] [address] [place] [address] MagnesiumOrdered By: Tasneem smith on 03-30-2021 Magnesium [Mass/Vol] 2.0 mg/dL 1.7 - 2 .4 mg/dL [facility] [place] Phone: No Panel InformationOrdered By: Tasneem Story on 03-30-2021 [facility] [place] Phone: Troponinon 03-30-2021 Troponin I.cardiac [Mass/Vol] ng/mL Normal 0.000-0.01 [facility] Comment on above: Result Comment: Meth odology by Troponin T. Performed By: #### C BCWD #### [facility] [address] [place] [address] TroponinOrdered By: Tasneem salinas on 03-30-2021 Troponin I.cardiac [Mass/Vol] ng/mL 0.000 - 0.010 ng/mL [facility] [place] Phone: Comment on above: Methodology by Isabelle uD [facility] [place] Phone: XR CHEST PORTABLEon 03-30-20 XR CHEST PORTABLE EXAMINATION: XR CHES T PORTABLE CLINICAL HISTORY: CHEST COMPARISONS: MARCH 29, 2025 FINDINGS: Osseous structures intact. Cardiopericardial silhouette normal. Pulmonary vasculature normal. Lungs clear. IMPRESSION: NO ACUTE CARDIOPULMONARY DISEASE. Interpreted by: Max Atkins MD Signed by: Max Atkins MD 03/30/21 Final result Normal [facility] XR CHEST PORTABLEOrdered By: Tasneem Story on 03-30-2021 NO ACUTE CARDIOPULMO NARY DISEASE. [employer] Work Phone: EXAMINATION: XR CHES T PORTABLE CLINICAL HISTORY: CHEST COMPARISONS: MARCH 29, 2025 FINDINGS: Osseous structures intact. Cardiopericardial silhouette normal. Pulmonary vasculature normal. Lungs clear. [facility] [place] Phone: [place], [place] Incoming Radiant Results From [employer] - 03/30/2021 1:39 PM EDT EXAMINATION: XR CHEST PORTABLE CLINICAL HISTORY: CHEST COMPARISONS: MARCH 29, 2025 FINDINGS: Osseous structures intact. Cardiopericardial silhouette normal. Pulmonary vasculature normal. Lungs clear. IMPRESSION: NO ACUTE CARDIOPULMONARY DISEASE. [facility] [place] Phone: [facility] [place] Phone: Alcoholon 03-29-2021 Blood Alcohol Concentration Not indicated Normal [facility] Comment on above: Performed By: #### A LCOH #### [facility] [address] [facility] [address] Ethanol [Mass/Vol] mg/dL Normal [facility] Comment on above: Performed By: #### A LCOH #### [facility] [address] [facility] [address] CBC Auto DifferentialOrdered By: Inez Valdes on 03-29-2021 Anisocytosis Ql (Bld) 1+ [employer] Work Phone: Bands Relative 3 % [employer] Work Phone: Basophils (Bld) [#/Vol] 0.0 10*3/uL 0.0 - 0.2 K/uL [facility] [place] Phone: Basophils/100 WBC (Bld) 1.0 % [facility] [place] Phone: Eosinophils (Bld) [#/Vol] 0.2 10*3/uL 0.0 - 0.7 K/uL [facility] [place] Phone: Eosinophils/100 WBC (Bld) 5 % [facility] [place] Phone: Hematocrit (Bld) [Volume fraction] 38.9 % Low 42.0 - 52.0 % [facility] [place] Phone: Hemoglobin.gastrointe stinal spec 1 Ql (Stl) 12.9 g/dL Low 14.0 - 18.0 g/dL [facility] [place] Phone: Interpretation and review of laboratory results Abnormal [facility] [place] Phone: Lymphocytes (Bld) [#/Vol] 1.2 10*3/uL 1.0 - 4.8 K/uL [facility] [place] Phone: Lymphocytes/100 WBC (Bld) 40.0 % [facility] [place] Phone: MCH (RBC) [Entitic mass] 27.9 pg 27.0 - 31.3 pg [facility] [place] Phone: MCHC (RBC) [Mass/Vol] 33.1 % 33.0 - 37.0 % [facility] [place] Phone: MCV (RBC) [Entitic vol] 84.3 fL 80.0 - 100.0 fL [facility] [place] Phone: Microcytes 1+ [facility] [place] Phone: Monocytes (Bld) [#/Vol] 0.2 10*3/uL 0.2 - 0.8 K/uL [facility] [place] Phone: Monocytes/100 WBC (Bld) 4.7 % [facility] [place] Phone: Neutrophils Absolute 1.5 K/uL 1.4 - 6 .5 K/uL [facility] [place] Phone: Neutrophils/100 WBC (Bld) 46.0 % [facility] [place] Phone: Platelet distribution width (Bld) [Ratio] 14.0 % 11.5 - 14.5 % [facility] [place] Phone: PLATELET SLIDE REVIEW Normal [employer] Phone: Platelets (Bld) [#/Vol] 147 10*3/uL 130 - 400 K/uL [facility] [place] Phone: Promyelocytes Percent 1 % Abnormal [employer] Phone: RBC (Bld) [#/Vol] 4.62 10*6/uL Low [facility] [place] Phone: Smudge Cells 3.7 [facility] [place] Phone: WBC (Bld) [#/Vol] 3.0 10*3/uL Low 4.8 - 10.8 K/uL [facility] [place] Phone: [facility] [place] Phone: CBC With Platelet and Differ entialon 03-29-2021 Basophils (Bld) [#/Vol] 0.0 10*3/uL Normal 0.0-0.2 [facility] Comment on above: Performed By: #### C BCWD #### [facility] [address] [place] [address] Basophils/100 WBC (Bld) 1.0 % Normal [facility] Comment on above: Performed By: #### C BCWD #### [facility] [address] [place] [address] Eosinophils (Bld) [#/Vol] 0.2 10*3/uL Normal 0.0-0.7 [facility] Comment on above: Performed By: #### C BCWD #### [facility] [address] [place] [address] Eosinophils/100 WBC (Bld) 5.0 % Normal [facility] Comment on above: Performed By: #### C BCWD #### [facility] [address] [place] [address] Erythrocyte distribution width (RBC) [Ratio] 14.0 % Normal 11.5-14.5 [facility] Comment on above: Performed By: #### C BCWD #### [facility] [address] [place] [address] Hematocrit (Bld) [Volume fraction] 38.9 % Low 42.0-52.0 [facility] Comment on above: Performed By: #### C BCWD #### [facility] [address] [place] [address] Hemoglobin (Bld) [Mass/Vol] 12.9 g/dL Low 14.0-18.0 [facility] Comment on above: Performed By: #### C BCWD #### [facility] [address] [place] [address] Lymphocytes (Bld) [#/Vol] 1.2 10*3/uL Normal 1.0-4.8 [facility] Comment on above: Performed By: #### C BCWD #### [facility] [address] [place] [address] Lymphocytes/100 WBC (Bld) 40.0 % Normal [facility] Comment on above: Performed By: #### C BCWD #### [facility] [address] [place] [address] MCH (RBC) [Entitic mass] 27.9 pg Normal 27.0-31.3 [facility] Comment on above: Performed By: #### C BCWD #### [facility] [address] [place] [address] MCHC 33.1 % Normal 33.0-37.0 [facility] Comment on above: Performed By: #### C BCWD #### [facility] [address] [place] [address] MCV (RBC) [Entitic vol] 84.3 fL Normal 80.0-100.0 [facility] Comment on above: Performed By: #### C BCWD #### [facility] [address] [place] [address] Monocytes (Bld) [#/Vol] 0.2 10*3/uL Normal 0.2-0.8 [facility] Comment on above: Performed By: #### C BCWD #### [facility] [address] [place] [address] Monocytes/100 WBC (Bld) 4.7 % Normal [facility] Comment on above: Performed By: #### C BCWD #### [facility] [address] [place] [address] Neutrophils (Bld) [#/Vol] 1.5 10*3/uL Normal 1.4-6.5 [facility] Comment on above: Performed By: #### C BCWD #### [facility] [address] [place] [address] Neutrophils/100 WBC (Bld) 46.0 % Normal [facility] Comment on above: Performed By: #### C BCWD #### [facility] [address] [place] [address] Platelets (Bld) [#/Vol] 147 10*3/uL Normal 130-400 [facility] Comment on above: Performed By: #### C BCWD #### [facility] [address] [place] [address] RBC (Bld) [#/Vol] 4.62 10*6/uL Low 4.70-6.10 [facility] Comment on above: Performed By: #### C BCWD #### [facility] [address] [place] [address] WBC (Bld) [#/Vol] 3.0 10*3/uL Low 4.8-10.8 [facility] Comment on above: Performed By: #### C BCWD #### [facility] [address] [place] [address] Anisocytosis Ql (Bld) 1+ Normal [facility] Comment on above: Performed By: #### C BCWD #### [facility] [address] [place] [address] Bands 3 % Normal [facility] Comment on above: Performed By: #### C BCWD #### [facility] [address] [place] [address] Microcytic 1+ Normal [facility] Comment on above: Performed By: #### C BCWD #### [facility] [address] [place] [address] Platelet Slide Review Normal Normal [facility] Comment on above: Performed By: #### C BCWD #### [facility] [address] [place] [address] Promyelocyte 1 % Abnormal [facility] Comment on above: Performed By: #### C BCWD #### [facility] [address] [place] [address] Smudge Cells 3.7 Normal [facility] Comment on above: Performed By: #### C BCWD #### [facility] [address] [place] [address] Comprehensive Metabolic Pane bart 03-29-2021 Albumin [Mass/Vol] 4.3 g/dL Normal 3.5-4.6 [facility] Comment on above: Performed By: #### C MP #### [facility] [address] [place] [address] ALP [Catalytic activity/Vol] 68 U/L Normal 35-104 [facility] Comment on above: Performed By: #### C MP #### [facility] [address] [place] [address] ALT [Catalytic activity/Vol] 18 U/L Normal 0-41 [facility] Comment on above: Performed By: #### C MP #### [facility] [address] [place] [address] Anion gap [Moles/Vol] 10 mmol/L Normal 9-15 [facility] Comment on above: Performed By: #### C MP #### [facility] [address] [place] [address] AST [Catalytic activity/Vol] 20 U/L Normal 0-40 [facility] Comment on above: Performed By: #### C MP #### [facility] [address] [place] [address] Bilirubin [Mass/Vol] mg/dL Normal 0.2-0.7 [facility] Comment on above: Performed By: #### C MP #### [facility] [address] [place] [address] Calcium [Mass/Vol] 9.5 mg/dL Normal 8.5-9.9 [facility] Comment on above: Performed By: #### C MP #### [facility] [address] [place] [address] Chloride [Moles/Vol] 102 mmol/L Normal 95-107 [facility] Comment on above: Performed By: #### C MP #### [facility] [address] [place] [address] CO2 [Moles/Vol] 24 mmol/L Normal 20-31 [facility] Comment on above: Performed By: #### C MP #### [facility] [address] [place] [address] Creatinine [Mass/Vol] 0.80 mg/dL Normal 0.70-1.20 [facility] Comment on above: Performed By: #### C MP #### [facility] [address] [place] [address] GFR >60.0 Normal >60 [facility] Comment on above: Result Comment: >60 mL/min/1.73m2 EGFR, calc. for ages 18 and older using the MDRD formula (not corrected for weight), is valid for stable renal function. Performed By: #### C MP #### [facility] [address] [place] [address] GFR/1.73 sq M.predicted among blacks MDRD (S/P/Bld) [Vol rate/Area] mL/min/{1.73_m2} Normal >60 [facility] Comment on above: Result Comment: >60 mL/min/1.73m2 EGFR, calc. for ages 18 and older using the MDRD formula (not corrected for weight), is valid for stable renal function. Performed By: #### C MP #### [facility] [address] [place] [address] Globulin (S) [Mass/Vol] 2.8 g/dL Normal 2.3-3.5 [facility] Comment on above: Performed By: #### C MP #### [facility] [address] [place] [address] Glucose [Mass/Vol] 91 mg/dL Normal 70-99 [facility] Comment on above: Performed By: #### C MP #### [facility] [address] [place] [address] Potassium [Moles/Vol] 4.1 mmol/L Normal 3.4-4.9 [facility] Comment on above: Performed By: #### C MP #### [facility] [address] [place] [address] Protein [Mass/Vol] 7.1 g/dL Normal 6.3-8.0 [facility] Comment on above: Performed By: #### C MP #### [facility] [address] [place] [address] Sodium [Moles/Vol] 136 mmol/L Normal 135-144 [facility] Comment on above: Performed By: #### C MP #### [facility] [address] [place] [address] Urea nitrogen [Mass/Vol] 11 mg/dL Normal 6-20 [facility] Comment on above: Performed By: #### C MP #### [facility] [address] [place] [id number] Comprehensive Metabolic Pane lOrdered By: Inez Valdes on 03-29-2021 Albumin [Mass/Vol] 4.3 g/dL 3.5 - 4.6 g/dL [facility] [employer] Work Phone: ALP (Bld) [Catalytic activity/Vol] 68 U/L 35 - 104 U/L [facility] [employer] Work Phone: ALT [Catalytic activity/Vol] 18 U/L 0 - 41 U/L [facility] [employer] Work Phone: Anion gap [Moles/Vol] 10 mmol/L [facility] [employer] Work Phone: AST [Catalytic activity/Vol] 20 U/L 0 - 40 U/L [facility] [employer] Phone: Bilirubin [Mass/Vol] mg/dL 0.2 - 0 .7 mg/dL [facility] [employer] Work Phone: Calcium [Mass/Vol] 9.5 mg/dL 8.5 - 9.9 mg/dL [facility] [employer] Work Phone: Chloride [Moles/Vol] 102 mmol/L [facility] [employer] Work Phone: CO2 [Moles/Vol] 24 mmol/L [facility] Work Phone: Creatinine [Mass/Vol] 0.8 mg/dL 0.70 - 1.20 mg/dL [facility] [employer] Work Phone: Free PSA/Total PSA [Mass fraction] 7.1 g/dL 6.3 - 8.0 g/dL [facility] [employer] Work Phone: GFR >60.0 >60 [facility] [employer] Work Phone: Comment on above: >60 mL/min/1.73m2 EG FR, calc. for ages 18 and older using the MDRD formula (not corrected for weight), is valid for stable renal function. GFR Non- >60.0 >60 [facility] [place] Phone: Comment on above: >60 mL/min/1.73m2 EG FR, calc. for ages 18 and older using the MDRD formula (not corrected for weight), is valid for stable renal function. Globulin (S) [Mass/Vol] 2.8 g/dL 2.3 - 3.5 g/dL [facility] [place] Phone: Glucose [Mass/Vol] 91 mg/dL 70 - 99 mg/dL [facility] [place] Phone: Potassium [Moles/Vol] 4.1 mmol/L [facility] [employer] Work Phone: Sodium [Moles/Vol] 136 mmol/L [facility] [place] Phone: Urea nitrogen (BldV) [Mass/Vol] 11 mg/dL 6 - 20 mg/dL [facility] [place] Phone: [facility] [place] Phone: EthanolOrdered By: Inez ratliff on 03-29-2021 Ethanol Lvl <10 mg/dL [facility] [place] Phone: Ethanol percent Not indicated G/dL [facility] [place] Phone: [facility] [place] Phone: No Panel InformationOrdered By: Inez Valdes on 03-29-2021 [facility] [place] Phone: PROCALCITONINOrdered By: Hannah Valdes on 03-29-2021 Procalcitonin 0.03 ng/mL 0.00 - 0.15 ng/mL [facility] [place] Phone: Comment on above: Suspected Sepsis: Low likelihood of sepsis <.50 ng/mL Increased likelihood of sepsis 0.50-2.00 ng/mL Antibiotics encouraged High risk of sepsis/shock >2.00 ng/mL Antibiotics strongly encouraged Suspected Lower Respiratory Tract Infections: Low likelihood of bacterial infection <0.24 ng/mL Increased likelihood of bacterial infection >0.24 ng/mL Antibiotics encouraged With successful antibiotic therapy, PCT levels should decrease rapidly. (Half-life of 24 to 36 hours.) Procalcitonin values from samples collected within the first 6 hours of systemic infection may still be low. Retesting may be indicated. Values from day 1 and day 4 can be entered into the Change in Procalcitonin Calculator to determine the patient's Mortality Risk Prognosis (www.swhrfv-pyt-qbctbzguwj.CURRENT) In healthy neonates, plasma Procalcitonin (PCT) concentrations increase gradually after , reaching peak values at about 24 hours of age then decrease to normal values below 0.5 ng/mL by 48-72 hours of age. Procalcitoninon 03-29-2021 Procalcitonin 0.03 ng/mL Normal 0.00-0.15 [facility] Comment on above: Result Comment: Susp ected Sepsis: Low likelihood of sepsis <.50 ng/mL Increased likelihood of sepsis 0.50-2.00 ng/mL Antibiotics encouraged High risk of sepsis/shock >2.00 ng/mL Antibiotics strongly encouraged Suspected Lower Respiratory Tract Infections: Low likelihood of bacterial infection <0.24 ng/mL Increased likelihood of bacterial infection >0.24 ng/mL Antibiotics encouraged With successful antibiotic therapy, PCT levels should decrease rapidly. (Half-life of 24 to 36 hours.) Procalcitonin values from samples collected within the first 6 hours of systemic infection may still be low. Retesting may be indicated. Values from day 1 and day 4 can be entered into the Change in Procalcitonin Calculator to determine the patient's Mortality Risk Prognosis (www.gkxcae-upi-qyesklhlcu.CURRENT) In healthy neonates, plasma Procalcitonin (PCT) concentrations increase gradually after , reaching peak values at about 24 hours of age then decrease to normal values below 0.5 ng/mL by 48-72 hours of age. Performed By: #### P ROCT #### [facility] [address] [facility] [id number] Troponinon 03-29-2021 Troponin I.cardiac [Mass/Vol] ng/mL Normal 0.000-0.01 [facility] Comment on above: Result Comment: Meth odology by Troponin T. Performed By: #### T ROP #### [facility] [address] [place] [address] TroponinOrdered By: Inez olivarez on 03-29-2021 Troponin I.cardiac [Mass/Vol] ng/mL 0.000 - 0.010 ng/mL [facility] [employer] Work Phone: Comment on above: Methodology by Isabelle [employer] Drugs of Abuse Panelon Drug Screen Comment see below Normal [facility] Comment on above: Result Comment: This method is a screening test to detect only these drug classes as part of a medical workup. Confirmatory testing by another method should be ordered if clinically indicated. Performed By: #### U DRGS #### [facility] [address] [place] [address] UR Amphetamines Screen Negative Normal Negative < [facility] Comment on above: Performed By: #### U DRGS #### [facility] [address] [place] [address] UR Barbiturates Screen Negative Normal Negative < [facility] Comment on above: Performed By: #### U DRGS #### [facility] [address] [place] [address] UR Benzo Screen Negative Normal Negative < [facility] Comment on above: Performed By: #### U DRGS #### [facility] [address] [place] [address] UR Cannabinoids Screen Negative Normal Negative < [facility] Comment on above: Performed By: #### U DRGS #### [facility] [address] [place] [address] UR Cocaine Screen Negative Normal Negative < [facility] Comment on above: Performed By: #### U DRGS #### [facility] [address] [place] [address] UR Methadone Screen Negative Normal Negative < [facility] Comment on above: Performed By: #### U DRGS #### [facility] [address] [place] [address] UR Opiates Screen Negative Normal Negative < [facility] Comment on above: Performed By: #### U DRGS #### [facility] [address] [place] [address] UR Oxycodone Screen Negative Normal Negative < [facility] Comment on above: Performed By: #### U DRGS #### [facility] [address] [place] [address] UR PCP Screen Negative Normal Negative < [facility] Comment on above: Performed By: #### U DRGS #### [facility] [address] [place] [address] UR Propoxyphene Screen Negative Normal Negative < [facility] Comment on above: Performed By: #### U DRGS #### [facility] [address] [place] [address] US ABDOMEN LIMITEDon 021 US ABDOMEN LIMITED EXAMINATION: US ABDO MEN LIMITED HISTORY: Right-sided chest pain. Right upper quadrant pain. TECHNIQUE: Sonography of the right upper quadrant was performed. Images were obtained and stored in a permanent archive. COMPARISON: None. RESULT: Pancreas: Not well visualized due to overlying bowel gas. Liver: Echotexture: Normal, homogeneous. Echogenicity: Normal Surface contour: Smooth Lesions: None. Biliary: No intrahepatic biliary duct dilation. CBD: 0.3 cm at the hilum. Gallbladder: Normal caliber -Contents: No cholelithiasis -Wall: Normal -Other: No pericholecystic fluid. Negative sonographic Valdes sign. Right Kidney: Imaged portions unremarkable. Ascites: None. IMPRESSION: Normal sonographic appearance of the right upper quadrant. Interpreted by: Elgin Knowles MD Signed by: Elgin Knowles MD 03/30/21 Final result Normal [facility] Urine Drug ScreenOrdered By: Inez Valdes on 03-29-2021 Amphetamine Screen, Urine Negative Negative <1000 ng/mL [facility] Phone: Barbiturate Screen, Ur Negative Negative < 200 ng/mL [facility] [place] Phone: Benzodiazepine Screen, Urine Negative Negative < 200 ng/mL [facility] [place] Phone: Cannabinoid Scrn, Ur Negative Negativ e < 50 ng/mL [facility] [place] Phone: Cocaine Metabolite Screen, Urine Negative Negative < 300 ng/mL [facility] [place] Phone: Drug Screen Comment: see below [employer] Phone: Comment on above: This method is a scr eening test to detect only these drug classes as part of a medical workup. Confirmatory testing by another method should be ordered if clinically indicated. Methadone Screen, Urine Negative Negative <300 ng/mL [facility] [place] Phone: Opiate Scrn, Ur Negative Negative < 300 ng/mL [facility] [place] Phone: Oxycodone Urine Negative Negative <100 ng/mL [facility] [place] Phone: PCP Screen, Urine Negative Negative < 25 ng/mL [facility] [place] Phone: Propoxyphene Scrn, Ur Negative Negati ve <300 ng/mL [facility] [place] Phone: [facility] [place] Phone: XR CHEST PORTABLEon 03-29-20 XR CHEST PORTABLE EXAMINATION: CHEST PORTABLE VIEW CLINICAL HISTORY: Midsternal chest pain COMPARISONS: None FINDINGS: Single views of the chest is submitted. The cardiac silhouette is borderline enlarged Pulmonary vascular unremarkable. Right sided trachea. No focal infiltrates. No Pneumothoraces. IMPRESSION: NO ACUTE ACTIVE CARDIOPULMONARY PROCESS Interpreted by: Yang Black MD Signed by: Yang Black MD 03/30/21 Final result Normal [facility] CBC AND DIFFERENTIALon 03-24 % AUTOMATED IMMATURE GRAN 0.5 % Normal 0.0 - 0.9 [facility] [place] Comment on above: Result Comment: Kath ture Granulocyte Count (IG) includes promyelocytes, myelocytes and metamyelocytes but does not include bands. Percent differential counts (%) should be interpreted in the context of the absolute cell counts (cells/L). Performed By: #### C BCDF #### [facility] [place] [address] [facility] [address] Basophils (Bld) [#/Vol] 0.02 10*3/uL Normal 0.00 - 0.10 [facility] [place] Comment on above: Performed By: #### C BCDF #### [address] [address] Basophils/100 WBC (Bld) 0.5 % Normal 0.0 - 2.0 [facility] [place] Comment on above: Performed By: #### C BCDF #### [address] [address] Eosinophils (Bld) [#/Vol] 0.07 10*3/uL Normal 0.00 - 0.70 [facility] [place] Comment on above: Performed By: #### C BCDF #### [address] [address] Eosinophils/100 WBC (Bld) 1.9 % Normal 0.0 - 6.0 [facility] [place] Comment on above: Performed By: #### C BCDF #### [address] [address] Erythrocyte distribution width (RBC) [Ratio] 13.0 % Normal 11.5 - 14.5 [facility] [place] Comment on above: Performed By: #### C BCDF #### [address] [address] Hematocrit (Bld) [Volume fraction] 40.0 % Low 41.0 - 52.0 [facility] [place] Comment on above: Performed By: #### C BCDF #### [address] [address] Hemoglobin (Bld) [Mass/Vol] 13.0 g/dL Low 13.5 - 17.5 [facility] [place] Comment on above: Performed By: #### C BCDF #### [address] [address] Lymphocytes (Bld) [#/Vol] 0.97 10*3/uL Low 1.20 - 4.80 [facility] [place] Comment on above: Performed By: #### C BCDF #### [address] [address] Lymphocytes/100 WBC (Bld) 26.4 % Normal 13.0 - 44.0 [facility] [place] Comment on above: Performed By: #### C BCDF #### [address] [address] MCHC (RBC) [Mass/Vol] 32.5 g/dL Normal 32.0 - 36.0 [facility] Comment on above: Performed By: #### C BCDF #### [address] [address] MCV (RBC) [Entitic vol] 85 fL Normal 80 - 100 [facility] [place] Comment on above: Performed By: #### C BCDF #### [address] [address] Monocytes (Bld) [#/Vol] 0.40 10*3/uL Normal 0.10 - 1.00 [facility] [place] Comment on above: Performed By: #### C BCDF #### [address] [address] Monocytes/100 WBC (Bld) 10.9 % Normal 2.0 - 10.0 [facility] [place] Comment on above: Performed By: #### C BCDF #### [address] [address] Neutrophils (Bld) [#/Vol] 2.20 10*3/uL Normal 1.20 - 7.70 [facility] [place] Comment on above: Performed By: #### C BCDF #### [address] [address] Neutrophils/100 WBC (Bld) 59.8 % Normal 40.0 - 80.0 [facility] [place] Comment on above: Performed By: #### C BCDF #### [address] [address] NUCLEATED RBC 0.0 /100 WBC Normal 0.0 - 0.0 [facility] [place] Comment on above: Performed By: #### C BCDF #### [address] [address] Platelets (Bld) [#/Vol] 152 10*3/uL Normal 150 - 450 [facility] [place] Comment on above: Performed By: #### C BCDF #### [address] [address] RBC 4.68 x10E12/L Normal 4.50 - 5.90 [facility] [place] Comment on above: Performed By: #### C BCDF #### [address] [address] WBC (Bld) [#/Vol] 3.7 10*3/uL Low 4.4 - 11.3 [facility] [place] Comment on above: Performed By: #### C BCDF #### [address] [address] CHEST 1 VIEWon 03-24-2021 CHEST 1 VIEW Patient Name: HOSEA ALVAREZ STUDY: CHEST 1 VIEW; 03/23/2021 10:50 pm INDICATION: Chest Pain. COMPARISON: 03/14/2021 ACCESSION NUMBER(S): [id number] ORDERING CLINICIAN: CHEO TIWARI FINDINGS: Cardiomegaly. The pulmonary vasculature is within normal limits. No consolidation, pleural effusion, or pneumothorax. IMPRESSION: Cardiomegaly without evidence of acute disease in the chest. Electronically signed by: ROBINA NIELSEN MD Normal [facility] [place] COMPREHENSIVE PANELon 2020 Albumin [Mass/Vol] 4.3 g/dL Normal 3.4 - 5.0 [facility] [place] Comment on above: Performed By: #### C MP #### [address] [address] ALP [Catalytic activity/Vol] 59 U/L Normal 33 - 120 [facility] [place] Comment on above: Performed By: #### C MP #### [address] [address] ALT [Catalytic activity/Vol] 17 U/L Normal 10 - 52 [facility] [place] Comment on above: Result Comment: Yanni ents treated with Sulfasalazine may generate falsely decreased results for ALT. Performed By: #### C MP #### [address] [address] Anion gap [Moles/Vol] 12 mmol/L Normal 10 - 20 [facility] [place] Comment on above: Performed By: #### C MP #### [address] [address] AST [Catalytic activity/Vol] 15 U/L Normal 9 - 39 [facility] [place] Comment on above: Performed By: #### C MP #### [address] [address] Bilirubin [Mass/Vol] 0.4 mg/dL Normal 0.0 - 1.2 [facility] [place] Comment on above: Performed By: #### C MP #### [address] [address] Calcium [Mass/Vol] 9.0 mg/dL Normal 8.6 - 10.3 [facility] [place] Comment on above: Performed By: #### C MP #### [address] [address] Chloride [Moles/Vol] 102 mmol/L Normal 98 - 107 [facility] [place] Comment on above: Performed By: #### C MP #### [address] [address] Creatinine [Mass/Vol] 0.78 mg/dL Normal 0.50 - 1.30 [facility] Comment on above: Performed By: #### C MP #### [address] [address] GFR- AM. >60 Normal >60 [facility] [place] Comment on above: Result Comment: CALC ULATIONS OF ESTIMATED GFR ARE PERFORMED USING THE MDRD STUDY EQUATION FOR THE IDMS-TRACEABLE CREATININE METHODS. CLIN CHEM 2007;53:766-72 Performed By: #### C MP #### [address] [address] GFR-NON AM. >60 Normal >60 [facility] [place] Comment on above: Performed By: #### C MP #### [address] [address] Glucose [Mass/Vol] 94 mg/dL Normal 74 - 99 [facility] [place] Comment on above: Performed By: #### C MP #### [address] [address] HCO3 (Bld) [Moles/Vol] 28 mmol/L Normal 21 - 32 [facility] [place] Comment on above: Performed By: #### C MP #### [address] [address] Potassium [Moles/Vol] 4.0 mmol/L Normal 3.5 - 5.3 [facility] [place] Comment on above: Performed By: #### C MP #### [address] [address] Protein [Mass/Vol] 6.8 g/dL Normal 6.4 - 8.2 [facility] [place] Comment on above: Performed By: #### C MP #### [address] [address] Sodium [Moles/Vol] 138 mmol/L Normal 136 - 145 [facility] [place] Comment on above: Performed By: #### C MP #### [address] [address] Urea nitrogen [Mass/Vol] 12 mg/dL Normal 6 - 23 [facility] [place] Comment on above: Performed By: #### C MP #### [address] [address] D-DIMER, VTE EXCLUSIONon D-DIMER, VTE EXCLUSION 344 ng/mL FEU Normal < or = 500 [facility] [place] Comment on above: Result Comment: The VTE Exclusion D-Dimer assay is reported in ng/mL Fibrinogen Equivalent Units (FEU). Per manufacturers instructions for use, a value of less than 500 ng/mL (FEU) may help to exclude DVT or PE in outpatients when the assay is used with a clinical pretest probability assessment. (AEMR must utilize and document eCalc Wells Score Deep Vein Thrombosis Risk for DVT exclusion only; Emergency Department should utilize Guidelines for Emergency Department Use of the VTE Exclusion D-Dimer and Clinical Pretest probability assessment model for DVT or PE exclusion.) Performed By: #### D IMEX #### [address] [address] LIPASEon 03-24-2021 Lipase [Catalytic activity/Vol] 13 U/L Normal 9 - 82 [facility] [place] Comment on above: Result Comment: Jocelyn puncture immediately after or during the administration of Metamizole may lead to falsely low results. Testing should be performed immediately prior to Metamizole dosing. H-qfgubb-q-benzoquinone imine (metabolite of Acetaminophen) will generate erroneously low results in samples for patients that have taken toxic doses of acetaminophen. Performed By: #### L IPAS #### [address] [place] [address] MAGNESIUMon 03-24-2021 Magnesium [Mass/Vol] 2.00 mg/dL Normal 1.60 - 2.40 [facility] [place] Comment on above: Performed By: #### M G #### [address] 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 Patient states that for several months he has been having right-sided chest pain and right arm tightness and numbness. He states it is not significantly changed. He denies any new injuries to the area. He states that this happens occasionally when he is constipated, however has had a bowel movement in the past 3 days. He denies any fevers or chills, cough, congestion, rhinorrhea. He states that his main concern is that his blood pressure could be different between his arms and related to his ascending aneurysm. He denies any chest tightness or arm numbness at this time. He denies any headaches or vision changes. He denies any abdominal pain, nausea, vomiting, hematochezia, melena. He denies any dysuria, hematuria, increased urinary frequency. He denies any lower extremity swelling. He states there is no pain that goes to his back. He states that he is just here to ask questions and be evaluated. He denies any other complaint at this time. ROS: Complete ROS performed. Pertinent positives and negatives included in HPI. PMH: As above, reviewed in chart PSH: Reviewed in chart SH: Endorses occasional alcohol consumption. Denies tobacco or illicit drug use MEDS: Reviewed in chart ALLERGIES: As documented in EMR were reviewed. Physical exam: VS: As documented in the triage note from today's date and EMR flowsheet were reviewed. Gen: Well developed. No acute distress. Seated in bed. Skin: Warm. Dry. Intact. No systemic rashes or lesions. Eyes: Pupils equally round and reactive to light. Clear sclera. HENT: Atraumatic appearance. Mucosal membranes moist. CV: No murmurs, rubs, or gallops appreciated. No pedal edema. Warm extremities. Equal radial pulses in the bilateral upper extremity. Resp: Nonlabored breathing. Clear to auscultation bilaterally. GI: Soft and nontender. Nondistended. No rebound or guarding. MSK: Normal ROM. No joint swelling in the extremities. Neuro: Alert. Speech fluent. Moving all extremities. Sensation equal in the bilateral upper and lower extremity. No focal neuro deficits. Psych: Appropriate. Kempt. Cooperative. Hospital Course / Medical Decision Making: Patient is a 50-year-old male who presents to the ED for evaluation of chronic right-sided chest pain and right arm tightness. In no acute distress. Vital signs stable. Patient is not hypertensive. He is currently denying any pain at this time. He does have a history of a sending aortic aneurysm as well as a history of PE. The patient is homeless and has multiple ER visits for the same complaint. Patient is just here for a routine evaluation he states without any acute complaints. He has equal pulses bilaterally. Normal heart and lung sounds. Normal neurological examination. Due to the patient's history and concern, cardiac work-up was ordered along with a D-dimer. Laboratory evaluation was grossly unremarkable. Chest x-ray showed no acute findings. Troponin and D-dimer within normal limits. Patient did remain chest pain-free while in the ED. He did begin to complain of other chronic complaints including hemorrhoid discomfort as well as chronic constipation. He asked for refills on multiple medications, which were provided. He was given a prescription for viscous lidocaine for his hemorrhoids. He is recommended to follow with his PCP, electrical software engineer, vascular surgeon, coding clerks supervisor regarding his chronic complaints. He is recommended to return to the ED with any persistent or worsening symptoms such as chest pain, extremity numbness or tingling or weakness, abdominal pain, or any other concerns. Patient in agreement and understanding of treatment plan. All questions answered. Patient stable at time of discharge. EKG with a rate of 68, sinus rhythm, left axis. PA 182 ms. QRS 98 ms. QTc 397 ms. There are PA depressions and minimal ST segment elevations in lead I and aVL as well as an inverted T wave in lead III. Similar when compared to previous EKG from 02/22/21 I reviewed the case with the attending ED physician. The attending ED physician agrees with the plan. Patient and/or patients hvac sales representative was counseled regarding labs, imaging, likely diagnosis, and plan. All questions were answered. Assessment: Hemorrhoids, constipation, chest tightness Disposition: discharge (more content not included)... Normal [facility] [place] [facility] TROPONIN Ion 03-24-2021 TROPONIN I Canceled Normal [facility] [place] Comment on above: Order Comment: TEST TROPONIN I WAS CANCELLED, 03/24/2021 01:56 pt discharged. Result Comment: LESS THAN 0.04 NG/ML: NEGATIVE REPEAT TESTING IN THREE TO SIX HOURS IF CLINICALLY INDICATED. 0.04 - 0.5 NG/ML: CONSISTENT WITH POSSIBLE CARDIAC DAMAGE AND POSSIBLE INCREASED CLINICAL RISK. SERIAL MEASUREMENTS MAY HELP ASSESS EXTENT OF MYOCARDIAL DAMAGE. >0.5 NG/ML: CONSISTENT WITH CARDIAC DAMAGE, INCREASED CLINICAL RISK AND MYOCARDIAL INFARCTION. SERIAL MEASUREMENTS MAY HELP ASSESS EXTENT OF MYOCARDIAL DAMAGE. . Note: Troponin I testing is performed using different testing methodology at [facility] than at other [facility]. Direct result comparisons should only be made within the same method. Performed By: #### T ROP2 ####[facility] [place] [facility] [address] Troponin I.cardiac [Mass/Vol] ng/mL Normal 0.00 - 0.03 [facility] [place] Comment on above: Result Comment: LESS THAN 0.04 NG/ML: NEGATIVE REPEAT TESTING IN THREE TO SIX HOURS IF CLINICALLY INDICATED. 0.04 - 0.5 NG/ML: CONSISTENT WITH POSSIBLE CARDIAC DAMAGE AND POSSIBLE INCREASED CLINICAL RISK. SERIAL MEASUREMENTS MAY HELP ASSESS EXTENT OF MYOCARDIAL DAMAGE. >0.5 NG/ML: CONSISTENT WITH CARDIAC DAMAGE, INCREASED CLINICAL RISK AND MYOCARDIAL INFARCTION. SERIAL MEASUREMENTS MAY HELP ASSESS EXTENT OF MYOCARDIAL DAMAGE. . Note: Troponin I testing is performed using different testing methodology at [facility] than at other [facility]. Direct result comparisons should only be made within the same method. Performed By: #### T ROP2 #### [facility] [place] [id number] [place], [place] [address] [address] Chart Updateon 03-23-2021 Chart Update Message Date: 23 Mar 2021 4:37 PM EST, Recorded By: Antonia Cuenca Calling For: Antonia Cuenca I witnessed Dr. Lawton hand the Dismissal from our practice letter to the patient and talk with him about it. ---ssd. Signatures Electronically signed by : Antonia Cuenca L.P.N.; Mar 23 2021 4:39PM EST (Author) Electronically signed by : Wally Lawton MD; Mar 23 2021 6:48PM EST (Author) Normal [facility] Complete Blood Count + Diffe ubaldo 03-23-2021 Basophils/100 WBC (Bld) 0.5 % 0.0 - 2.0 [facility] Work Phone: Erythrocyte distribution width (RBC) [Ratio] 13.0 % See Below [facility] Work Phone: Comment on above: Reference Range: 11. 5 - 14.5 Hematocrit (Bld) [Volume fraction] 40.0 % below low threshold See Below [facility] Work Phone: Comment on above: Reference Range: 41. 0 - 52.0 Hemoglobin (Bld) [Mass/Vol] 13.0 g/dL below low threshold See Below [facility] Work Phone: Comment on above: Reference Range: 13. 5 - 17.5 Lymphocytes/100 WBC (Bld) 26.4 % See Below [facility] Work Phone: Comment on above: Reference Range: 13. 0 - 44.0 MCHC (RBC) [Mass/Vol] 32.5 g/dL See Below [facility] Work Phone: Comment on above: Reference Range: 32. 0 - 36.0 MCV (RBC) [Entitic vol] 85 fL 80 - 100 [facility] Work Phone: Monocytes/100 WBC (Bld) 10.9 % 2.0 - 10.0 [facility] Work Phone: Neutrophils/100 WBC (Bld) 59.8 % See Below [facility] Work Phone: Comment on above: Reference Range: 40. 0 - 80.0 Platelets (Bld) [#/Vol] 152 10*3/uL 150 - 450 [facility] Work Phone: RBC (Bld) [#/Vol] 4.68 {x10E12/L} See Below [facility] Work Phone: Comment on above: Reference Range: 4.5 0 - 5.90 WBC (Bld) [#/Vol] 3.7 10*3/uL below low threshold 4.4 - 11.3 [facility] Work Phone: Complete Blood Count + Differential 0.02 {x10E9/L} See Below [facility] Work Phone: Comment on above: Reference Range: 0.0 0 - 0.10 Complete Blood Count + Differential 0.07 {x10E9/L} See Below [facility] Work Phone: Comment on above: Reference Range: 0.0 0 - 0.70 Complete Blood Count + Differential 0.40 {x10E9/L} See Below [facility] Work Phone: Comment on above: Reference Range: 0.1 0 - 1.00 Complete Blood Count + Differential 0.97 {x10E9/L} below low threshold See Below [facility] Work Phone: Comment on above: Reference Range: 1.2 0 - 4.80 Complete Blood Count + Differential 2.20 {x10E9/L} See Below [facility] Work Phone: Comment on above: Reference Range: 1.2 0 - 7.70 Complete Blood Count + Differential 1.9 % 0.0 - 6.0 [facility] Work Phone: Complete Blood Count + Differential 0.5 % 0.0 - 0.9 [facility] Work Phone: Comment on above: Immature Granulocyte Count (IG) includes promyelocytes, myelocytes and metamyelocytes but does not include bands. Percent differential counts (%) should be interpreted in the context of the absolute cell counts (cells/L). Complete Blood Count + Differential 0.0 {/100_WBC} 0.0 - 0.0 [facility] Work Phone: Laboratory - Chemistry and C hemistry - challengeon 03-23-2021 Albumin BCP dye [Mass/Vol] 4.3 g/dL 3.4 - 5.0 [facility] Work Phone: ALP [Catalytic activity/Vol] 59 U/L 33 - 120 [facility] Work Phone: ALT With P-5'-P [Catalytic activity/Vol] 17 U/L 10 - 52 [facility] [place] Work Phone: Comment on above: Patients treated wit h Sulfasalazine may generate falsely decreased results for ALT. Anion gap [Moles/Vol] 12 mmol/L 10 - 20 [facility] [place] Work Phone: [phone] AST With P-5'-P [Catalytic activity/Vol] 15 U/L 9 - 39 [facility] [place] Work Phone: [phone] Bilirubin [Mass/Vol] 0.4 mg/dL 0.0 - 1.2 [facility] [place] Work Phone: [phone] Calcium [Mass/Vol] 9.0 mg/dL 8.6 - 10.3 [facility] [place] Work Phone: [phone] Chloride [Moles/Vol] 102 mmol/L 98 - 107 [facility] [place] Work Phone: [phone] CO2 [Moles/Vol] 28 mmol/L 21 - 32 [facility] Work Phone: Creatinine [Mass/Vol] 0.78 mg/dL See Below [facility] [place] Work Phone: Comment on above: Reference Range: 0.5 0 - 1.30 Glucose [Mass/Vol] 94 mg/dL 74 - 99 [facility] [place] Work Phone: Potassium [Moles/Vol] 4.0 mmol/L 3.5 - 5.3 [facility] Work Phone: Protein [Mass/Vol] 6.8 g/dL 6.4 - 8.2 [facility] Work Phone: Sodium [Moles/Vol] 138 mmol/L 136 - 145 [facility] Work Phone: Urea nitrogen [Mass/Vol] 12 mg/dL 6 - 23 [facility] Work Phone: Lipase, Serumon 03-23-2021 Lipase [Catalytic activity/Vol] 13 U/L 9 - 82 [facility] Work Phone: Comment on above: Venipuncture immedia tely after or during the administration of Metamizole may lead to falsely low results. Testing should be performed immediately prior to Metamizole dosing. P-idohne-n-benzoquinone imine (metabolite of Acetaminophen) will generate erroneously low results in samples for patients that have taken toxic doses of acetaminophen. Magnesium, Serumon 1 Magnesium [Mass/Vol] 2.00 mg/dL See Below [facility] Work Phone: Comment on above: Reference Range: 1.6 0 - 2.40 No Panel Informationon 03-23 >60 >60 [facility] Work Phone: Comment on above: CALCULATIONS OF NIKOLE MATED GFR ARE PERFORMED USING THE MDRD STUDY EQUATION FOR THE IDMS-TRACEABLE CREATININE METHODS. CLIN CHEM 2007;53:766-72 344 {ng/mL_FEU} < or = 500 [facility] Work Phone: Comment on above: The VTE Exclusion D- Dimer assay is reported in ng/mL Fibrinogen Equivalent Units (FEU). Per manufacturers instructions for use, a value of less than 500 ng/mL (FEU) may help to exclude DVT or PE in outpatients when the assay is used with a clinical pretest probability assessment. ([facility] must utilize and document eCalc Wells Score Deep Vein Thrombosis Risk for DVT exclusion only; Emergency Department should utilize Guidelines for Emergency Department Use of the VTE Exclusion D-Dimer and Clinical Pretest probability assessment model for DVT or PE exclusion.) [email or web address] 1:80 [email or web address] [email or web address]?RetrieveTestByDateTim e?GdjjfemHM=[id number]&Da te=09-29-2020&Time=23%3a 02%3a26%3a00&TestType=EC G&Site=12&OutputType=PDF &Ext=PDF [facility] Work Phone: [phone] Normal sinus rhythm [facility] Work Phone: [phone] Abnormal [facility] Work Phone: [phone] [facility] Work Phone: [phone] [facility] Work Phone: [phone] 1 [facility] Work Phone: [phone] 1 [facility] Work Phone: [phone] 1 [facility] Work Phone: [phone] 1 [facility] Work Phone: [phone] 1 [facility] Work Phone: [phone] 1 [facility] Work Phone: [phone] [facility] Work Phone: [phone] [facility] Work Phone: [phone] [facility] Work Phone: [phone] [facility] Work Phone: [phone] [facility] [place] Work Phone: Office Visit (Cardiology)on 03-23-2021 Follow-up visit Diagnoses/Problems Assessed Chest pain (786.50) (R07.9) Ascending aortic aneurysm (441.2) (I71.2) Orders Ascending aortic aneurysm Follow-up PRN Outpatient Follow-up Status: Active Requested for: [id number] Patient Instructions You will need follow up for your ascending aortic aneurysm. As we discussed, I am dismssing you from my practice, but you can find a referral for a new electrical software engineer through your primary care physician, or the [facility], or any local [facility]. Chief Complaint HOSEA ALVAREZ is being seen for a cardiovascular evaluation of chest pain and ascending aortic aneurysm. History of Present Illness This 50 year old man hypertensive man with a 4.5-4.6 cm ascending aortic aneurysm and recently diagnosed renal artery stenosis comes to the office in follow up for chest pain. Please see my prior consult note dated 02/13 for complete details. In brief, he has had over 20 visits with chest pain to ERs throughout [facility] since January of this year. He has had multiple troponins and BNPs, which have been normal. He has had [address] scans, which have disclosed no evidence of acute PE, acute aortic dissection, or coronary calcification. In evaluation of his chest pain, I ordered a stress MRI. The patient followed through with the CMR, but refused the stress portion of the study. Please see the report for complete details. The resting CMR disclosed normal LV function, and no evidence of infarct or scar. He told me today, that he had a stress test with a electrical software engineer in [place] two months ago, and was told it was normal. He now states that he has pain in his chest when he swallows, and is seeing GI for further evaluation. Active Problems Problems Ascending aortic aneurysm (441.2) (I71.2) Bipolar 2 disorder (296.89) (F31.81) Chest pain (786.50) (R07.9) Constipation (564.00) (K59.00) COVID-19 (079.89) (U07.1) Esophageal spasm (530.5) (K22.4) Essential hypertension (401.9) (I10) ETOH abuse (305.00) (F10.10) GERD (gastroesophageal reflux disease) (530.81) (K21.9) Palpitations (785.1) (R00.2) Pancytopenia (284.19) (D61.818) Renal artery stenosis (440.1) (I70.1) Current Meds Medication NameInstruction cloNIDine HCl - 0.1 MG Oral TabletTAKE 1 TABLET BY MOUTH DAILY - May take 1 extra tablet for BP above 140/90. Lidocaine Viscous HCl - 2 % Mouth/Throat Solutiontake one teaspoon and swish and spit four times a day as needed Losartan Potassium 50 MG Oral TabletTAKE 1 TABLET DAILY. Metamucil 28.3 % Oral Powdermix one tablespoon in 8 ounces of water daily Metoprolol Succinate ER 25 MG Oral Tablet Extended Release 24 HourTAKE 1 TABLET DAILY. Omeprazole 40 MG Oral Capsule Delayed ReleaseTake one capsule once a day Allergies Medication Erythromycin TABS Adverse Reaction; Gatrointestinal upset; Updated By: Meagan Baugh; 02/22/2021 3:30:50 PM polyethylene glycol 3350 Gatrointestinal upset; Recorded By: Antonia Cuenca; 02/16/2021 10:12:41 AM Aspirin TABS Recorded By: Antonia Cuenca; 03/17/2021 3:12:47 PM Social History Problems Current smoker (305.1) (F17.200) ETOH abuse (305.00) (F10.10) Regular alcohol consumption (V69.8) (Z78.9) Review of Systems CHEST: clear to auscultation, respiratory efforts are unlabored COR: RRR, normal S1, and S2, no murmur, rub, or gallop; carotids are brisk and without bruit; there is no JVD; PMI is not displaced. ABD: Active BS, no tenderness or organomegaly, no audible bruit, no evidence of fluid wave. EXT: No clubbing, cyanosis, edema, or tenderness. Vitals Vital Signs Recorded: 23Mar2021 03:49PM Heart Rate90 [id number] Qyztkzhuk54 Height5 ft 6 in Kkshsm995 lb BMI Lmvpamyssk82.34 kg/m2 BSA Calculated1.95 Tobacco Useb) No Fall Screeninga) No falls within the last year O2 Ihquxrfokx72 Physical Exam CHEST: clear to auscultation, respiratory efforts are unlabored COR: RRR, normal S1, and S2, no murmur, rub, or gallop; carotids are brisk and without bruit; there is no JVD; PMI is not displaced. ABD: Active BS, no tenderness or organomegaly, no audible bruit, no evidence of fluid wave. EXT: No clubbing, cyanosis, edema, or tenderness. Impressions 1. Ascending aortic aneurysm: he will need prospective follow up imaging to ensure stability. I informed him of this. 2. Renal artery stenosis: his PCP has ordered a nephrology consult. 3. Atypical chest pain: see HPI The patient has been verbally abuse of my office staff. He has used profanity with them on multiple occasions. He has been manipulative and rude. Today, while in the waiting room prior to the appointment, he became verbally abusive, and profane. His behavior disturbed the patients, to the point where an elderly patient felt compelled to say something to the patient, redirecting him not to use profanity. I told the patient I would be available to him on an emergency basis only for the next 30 days. I advised him that I'm dismissing him from my practice, a (more content not included)... Normal [facility] Radiology[facility] 03-23-2021 XR Chest Single view Normal [facility] ascular Surgery-José Miguel mathews 1800 Work Phone: Risk Screen - Adult Emergenc yon 03-23-2021 Risk Screen - Adult Emergency Preferred Language: Preferred Language: Preferred Language for Discussing Health Care (patient/designee)Fran villalta Advanced Directives: Advance Directive/DNRno Advance Directive Information Givenpatient/family declined Family Violence Adult: Abuse Screen: Are you or have you been threatened or abused physically, emotionally, or sexually by anyoneno Learning Assessment (Patient): Learning Assessment (Patient): Patient is Able to be Assessed for Learningyes Factors Influencing Readiness to Learninformation requested Factors that Impact Ability to Learnnone Devices/Methods Used to Communicateglasses Learning Preferencesindividual instruction Cultural Considerationsnone Developmental Considerationsnone Zoroastrian Considerationsnone Learning Assessment (Other Learner): Learning Assessment (Other Learner): Other learner availableno Pressure Injury/TB/Substance: Pressure Injury: Pressure Injury Present on Admissionno Do you have a coughno Substance Use Current or Former Historynever: Cigarette/Tobacco, e-Cigarette/Vaping, Alcohol, Street Drugs Admission Risk Screen: Significant IndicatorsComplete CAGE: CAGE: Is this an injured patient at a Trauma Center ([facility]/[place] /[place]): no Electronic Signatures: Lor Wong (RN) (Signed 23-Mar-2021 21:35) Authored: Preferred Language, Advanced Directives, Family Violence Adult, Learning Assessment (Patient), Learning Assessment (Other Learner), Pressure Injury/TB/Substance, Pressure Injury, CAGE Last Updated: 23-Mar-2021 21:35 by Lor Wong (RN) Normal [facility] Tobacco Screening.on Fall risk assessment a) No falls within the last year [facility] [address] Work Phone: Tobacco use status [facility] b) No [facility] 200 Work Phone: Triage - EDon 03-23-2021 Triage - ED Chart Review: PRIMARY ASSESSMENT HOSEA ALVAREZ'brennon primary assessment is Within Defined Limits. The airway is open and patent. Breathing spontaneous and unlabored with clear breath sounds bilaterally. Circulation is normal with good peripheral pulses. Skin is warm and dry and color is normal for race. ARRIVAL INFORMATION Mode of Arrival: private vehicle CHIEF COMPLAINT HOSEA ALVAREZ is a Male patient with a chief complaint of other (right arm stiffness). Triage Date/Time: 23-Mar-2021 21:27 WILMAN: 3 Pain Rating (0-10): 4 = Moderate Vital Signs: Temperature: 96.8F ( 36.0C) taken forehead Blood Pressure: 129/80 Mean: Heart Rate: 84 Respiratory Rate: 18 Pulse Oximetry: 96% on room air, no respiratory support. Height: 5 feet 6 inches. 167.6 CM Weight: 189.1 pounds. Calculated 85.8 kg. Calculated BMI (kg/m2): 30.544 Calculated BSA (m2) 2.00 [place] Coma Scale: Best Eye Response: (E4) spontaneous Best Motor Response: (M6) obeys commands Best Verbal Response: (V5) oriented Lynda Score: 15 Cough lasting greater than 3 weeks: no Mask applied: yes Patient has homicidal thoughts: no Last Known Well: known Time Last Known Well Date/Time: 21-Mar-2021 Risk Screens Suicide Risk Screen In the Past Month: Have you wished you were or wished you could go to sleep and not wake up no In the Past Month: Have you had any actual thoughts of killing yourself no In Your Lifetime: Have you ever done anything, started to do anything, or prepared to do anything to end your life no [place] Fall Scale Screening Has the patient fallen before (or is the patient in the ED as a result of a fall) has not had a fall Does the patient have an impaired gait does not have impaired gait Is the patient cognitively impaired not cognitively impaired Interventions: Molina Fall Interventions: LOW INTERVENTIONS: *patient oriented to surroundings and call system, * patient/family falls education completed and documented, *patients fall status communicated during bedside handoff, *whiteboard updated, *mode of toileting discussed with patient, *bed in low position with brakes locked, *call light in reach, * non-skid footwear PAST MEDICAL HISTORY Immunization History: Last Known Tetanus Immunization: Unknown TRAVEL HISTORY Travel History Coronavirus Screening: COVID positive 14 or more days ago Coronavirus Screening Details: sep Travel Exposure History: NO travel to International locations in the past 30 days PAIN Pain Scale Used: SHANNON Pain Rating (0-10): 4 = Moderate Past Medical History: Past Medical History Reviewedyes Electronic Signatures: Lor Wong (BROOKLYNN) (Signed 23-Mar-2021 21:29) Authored: Quick Triage, Risk Screens, Pain, ABCD, Immunizations, Travel History, Chart Review, Scores, Past Medical History Last Updated: 23-Mar-2021 21:29 by Lor Wong (BROOKLYNN) Normal [facility] Troponin I, Serumon 03-23-20 21 Troponin I.cardiac [Mass/Vol] ng/mL See Below -Vascular Surgery-José Miguel Jones Work Phone: Comment on above: Reference Range: 0.0 0 - 0.03LESS THAN 0.04 NG/ML: NEGATIVEREPEAT TESTING IN THREE TO SIX HOURSIF CLINICALLY INDICATED.0.04 - 0.5 NG/ML: CONSISTENT WITH POSSIBLECARDIAC DAMAGE AND POSSIBLE INCREASEDCLINICAL RISK.SERIAL MEASUREMENTS MAY HELP ASSESS EXTENT OFMYOCARDIAL DAMAGE.>0.5 NG/ML: CONSISTENT WITH CARDIAC DAMAGE,INCREASED CLINICAL RISK AND MYOCARDIALINFARCTION. SERIAL MEASUREMENTS MAY HELPASSESS EXTENT OF MYOCARDIAL DAMAGE..Note: Troponin I testing is performed using different testing methodology at [facility] than at other [facility]. Direct result comparisons should only be made within the same method. Laboratory - Chemistry and C hemistry - challengeon 03-22-2021 Troponin T.cardiac [Mass/Vol] HS Troponin T,Gen 5 6 NG/L (-<15 NG/L) LESS THAN Sex Specific Reference Range: Male (0-22), Female (0-14) Change(Delta) >=5 is significant Troponin Baseline and Serial elevation for significant change(delta)should be interpreted in conjunction with clinical presentation, history, signs and symptoms, ECG and biomarker concentrations. Troponin elevation can be seen in several other non-infarct conditions. Chronic troponin elevations can be detected in clinically stable patients with heart failure, cardiomyopathy, renal failure, diabetes, etc. Elevated troponin can also occur in myocarditis, heart contusion, PE, drug induced cardiotoxicity, etc. Samples should NOT be taken from patients receiving high dose biotin (> 5mg) doses until 8 hours following last biotin administration. ActiveEon Anion gap [Moles/Vol] Anion Gap 15 MMOL/ L (0-19 MMOL/L) 0 - 19 MMOL/L Pick a Student Calcium [Mass/Vol] Calcium 9.0 MG/DL (8.5-10.4 MG/DL) 8.5 - 10.4 MG/DL S Chloride [Moles/Vol] Chloride 103 MMOL/L (97-107 MMOL/L) 97 - 107 MMOL/L S CO2 [Moles/Vol] Carbon Dioxide 19 MM OL/L L (24-31 MMOL/L) Low 24 - 31 MMOL/L S Creatinine [Mass/Vol] Creatinine R 0.8 M G/DL (0.4-1.6 MG/DL) 0.4 - 1.6 MG/DL Pick a Student GFR/1.73 sq M.predicted MDRD (S/P/Bld) [Vol rate/Area] EGFR 109 mL/min/1.73 m2 (Reference Range: not available) GFR ml/min/1.73m2 Stage ----- 90 1 60-89 2 30-59 3 15-29 4 <15 5 For -Americans, multiply EGFR result by 1.210 Calculation not validated for patients under 18 years of age. Performed at [address] [address] [facility] Glucose [Mass/Vol] Glucose 93 MG/DL (65 -99 MG/DL) 65 - 99 MG/DL S Potassium [Moles/Vol] Potassium R 4.1 MM OL/L (3.4-5.1 MMOL/L) 3.4 - 5.1 MMOL/L S Sodium [Moles/Vol] Sodium 137 MMOL/L (133-145 MMOL/L) 133 - 145 MMOL/L [facility] Troponin T.cardiac [Mass/Vol] HS Troponin T,Gen 5 6 NG/L (-<15 NG/L) LESS THAN Sex Specific Reference Range: Male (0-22), Female (0-14) Change(Delta) >=5 is significant Troponin Baseline and Serial elevation for significant change(delta)should be interpreted in conjunction with clinical presentation, history, signs and symptoms, ECG and biomarker concentrations. Troponin elevation can be seen in several other non-infarct conditions. Chronic troponin elevations can be detected in clinically stable patients with heart failure, cardiomyopathy, renal failure, diabetes, etc. Elevated troponin can also occur in myocarditis, heart contusion, PE, drug induced cardiotoxicity, etc. Samples should NOT be taken from patients receiving high dose biotin (> 5mg) doses until 8 hours following last biotin administration. [facility] Urea nitrogen [Mass/Vol] BUN 12 MG/DL (8-25 MG/DL) 8 - 25 MG/DL S Urea nitrogen/Creatinine [Mass ratio] BUN Creatinine Ratio 15.0 RATIO (8-21 RATIO) 8 - 21 RATIO Pick a Student Laboratory - Hematology and Cell countson 03-22-2021 Basophils (Bld) [#/Vol] Abs Baso 0.01 K/UL (0.00-0.22 K/UL) 0.00 - 0.22 K/UL [facility] Basophils/100 WBC (Bld) Basophil 0.30 % (0-1 %) 0 - 1 % [facility] Differential cell count method Nom (Bld) Diff Type AUTO DIFF (Reference Range: not available) [facility] Eosinophils (Bld) [#/Vol] Abs Eos 0.08 K/UL (0-0.45 K/UL) 0 - 0.45 K/UL [facility] Eosinophils/100 WBC (Bld) Eosinophil 2.70 % (0-3 %) 0 - 3 % [facility] Erythrocyte distribution width (RBC) [Entitic vol] RDW SD 38.5 FL (37.0-54.0 FL) 37.0 - 54.0 FL [facility] Erythrocyte distribution width (RBC) [Ratio] RDW CV 12.6 % (11.7-15.0 %) 11.7 - 15.0 % [facility] Hematocrit (Bld) [Volume fraction] HCT 41.4 % (41-50 %) 41 - 50 % [facility] Hemoglobin (Bld) [Mass/Vol] HGB 13.6 GM/DL (13.5-16.5 GM/DL) 13.5 - 16.5 GM/DL [facility] Immature granulocytes (Bld) [#/Vol] Abs Imm Neut 0.02 K/UL (0.0-0.1 K/UL) 0.0 - 0.1 K/UL [facility] Lymphocytes (Bld) [#/Vol] Abs Lymph 0.75 K/UL L (1.2-3.2 K/UL) Low 1.2 - 3.2 K/UL S Lymphocytes/100 WBC (Bld) Lymphocyte 25.40 % (20-40 %) 20 - 40 % S MCH (RBC) [Entitic mass] MCH 27.9 PG (26-34 PG) 26 - 34 PG S MCHC (RBC) [Mass/Vol] MCHC 32.9 % (31-37 %) 31 - 37 % S MCV (RBC) [Entitic vol] MCV 85.0 FL (80-100 FL) 80 - 100 FL S Monocytes (Bld) [#/Vol] Abs Gage 0.35 K/UL (0-0.8 K/UL) 0 - 0.8 K/UL [facility] Monocytes/100 WBC (Bld) Monocyte 11.90 % H (0-8 %) High 0 - 8 % [facility] Neutrophils (Bld) [#/Vol] Abs.Neut.Calculated 1.74 K/UL (Reference Range: not available) Performed at [address] [address] [facility] Neutrophils (Bld) [#/Vol] Abs Neut 1.74 K/UL L (1.8-7.7 K/UL) Low 1.8 - 7.7 K/UL [facility] Neutrophils.immature/ 100 WBC (Bld) Immature Neut % 0.70 % (0.0-1.0 %) 0.0 - 1.0 % [facility] Nucleated RBC/100 WBC (Bld) [Ratio] NRBCs 0 /100 WBC (0 /100 WBC) [facility] Platelet mean volume (Bld) [Entitic vol] MPV 11.4 CU (7.0-12.6 CU) 7.0 - 12.6 CU S Platelets (Bld) [#/Vol] PLT 177 K/UL (150-450 K/UL) 150 - 450 K/UL S RBC (Bld) [#/Vol] RBC 4.87 M/UL (4.5-5 .5 M/UL) 4.5 - 5.5 M/UL S Segmented neutrophils/100 WBC (Bld) Granulocyte 59.00 % (50-70 %) 50 - 70 % S WBC (Bld) [#/Vol] WBC 3.0 K/UL L (4.5- 11.0 K/UL) Low 4.5 - 11.0 K/UL [facility] No Panel Informationon 03-22 HS Troponin T Delta 0 (0-4 ) Performed at [address] [address] 0 - 4 [facility] XR Chest Portable (1view) (Reference Range: not available) *FINAL Date of Service: 03/22/2021 04:53 Adm #: [id number] Reading Dr:FAITH PACK Signoff Dr: FAITH PACK PROCEDURE: CHEST PORTABLE - WXR [id number] REASON FOR EXAM: Chest Pain RESULT: CLINICAL HISTORY: Chest pain/Covid positive/smoker/hyperten jayy COMPARISON: 03/17/2021 FINDINGS: The cardiomediastinal silhouette is stable. The lungs are clear. No pleural effusion is identified. The osseous structures are intact. IMPRESSION: No acute cardiopulmonary process. [id number] This report has been produced using speech recognition. Original Interpreting Physician: FAITH PACK MD Original Transcribed by/Date: PSCB Mar 22 2021 8:00A Original Electronically Signed by/Date: FAITH PACK MD Mar 22 2021 8:00A Addendum Interpreting Physician: Addendum Transcribed by/Date: NO ADDENDUM Addendum Electronically Signed by/Date: [facility] HS Troponin T Delta 0 (0-4 ) Performed at [address] [address] 0 - 4 [facility] EKG (Reference Range : not available) Ventricular Rate : 78 BPM Atrial Rate : 78 BPM P-R Interval : 178 ms QRS Duration : 100 ms Q-T Interval : 362 ms QTC Calculation(Bazett) : 412 ms Calculated P [place] : 34 degrees Calculated R [place] : -15 degrees Calculated T [place] : 15 degrees Diagnosis: Poor data quality, interpretation may be adversely affected Normal sinus rhythm Normal ECG When compared with ECG of 17-MAR-2021 19:42, No significant change was found Confirmed by CHERYL CULLEN ([id number]) on 03/22/2021 1:51:20 PM See also the report from this date [facility] Laboratory - Chemistry and C hemistry - challengeon 03-18-2021 Albumin [Mass/Vol] Albumin 3.7 GM/DL (3.5-5.0 GM/DL) 3.5 - 5.0 GM/DL [facility] Albumin/Globulin [Mass ratio] Albumin Globulin Ratio 1.5 RATIO (1.5-3.0 RATIO) Performed at [address] [address] 1.5 - 3.0 RATIO [facility] ALP (Bld) [Catalytic activity/Vol] Alk Phosphatase 52 U/L (35-125 U/L) 35 - 125 U/L [facility] ALT [Catalytic activity/Vol] ALT 18 U/L (5-40 U/L) 5 - 40 U/L [facility] AST [Catalytic activity/Vol] AST 20 U/L (5-40 U/L) 5 - 40 U/L [facility] Bilirubin [Mass/Vol] Total Bilirubin 0.2 MG/DL (0.1-1.2 MG/DL) 0.1 - 1.2 MG/DL [facility] Bilirubin.direct [Mass/Vol] Direct Bilirubin 0.2 MG/DL (0.0-0.2 MG/DL) LESS THAN 0.0 - 0.2 MG/DL [facility] Bilirubin.indirect [Mass/Vol] Indirect Bilirubin 0.0 MG/DL (0-0.8 MG/DL) 0 - 0.8 MG/DL [facility] Globulin (S) [Mass/Vol] Globulin 2.4 G/DL (1.9-3.7 G/DL) 1.9 - 3.7 G/DL [facility] Lactate (BldV) [Moles/Vol] Lactic Acid (Venous) 1.3 MMOL/L (0.9-1.7 MMOL/L) Performed at [address] [address] 0.9 - 1.7 MMOL/L [facility] Protein [Mass/Vol] Total Protein 6.1 G/ DL (5.9-7.9 G/DL) 5.9 - 7.9 G/DL [facility] Bilirubin [Mass/Vol] Total Bilirubin 0.2 MG/DL (0.1-1.2 MG/DL) Performed at [address] [address] 0.1 - 1.2 MG/DL [facility] Lactate (BldV) [Moles/Vol] Lactic Acid (Venous) 1.0 MMOL/L (0.9-1.7 MMOL/L) Performed at [address] [address] 0.9 - 1.7 MMOL/L [facility] Troponin T.cardiac [Mass/Vol] HS Troponin T,Gen 5 6 NG/L (-<15 NG/L) LESS THAN Sex Specific Reference Range: Male (0-22), Female (0-14) Change(Delta) >=5 is significant Troponin Baseline and Serial elevation for significant change(delta)should be interpreted in conjunction with clinical presentation, history, signs and symptoms, ECG and biomarker concentrations. Troponin elevation can be seen in several other non-infarct conditions. Chronic troponin elevations can be detected in clinically stable patients with heart failure, cardiomyopathy, renal failure, diabetes, etc. Elevated troponin can also occur in myocarditis, heart contusion, PE, drug induced cardiotoxicity, etc. Samples should NOT be taken from patients receiving high dose biotin (> 5mg) doses until 8 hours following last biotin administration. [facility] Laboratory - Hematology and Cell countson 03-18-2021 Basophils (Bld) [#/Vol] Abs Baso 0.02 K/UL (0.00-0.22 K/UL) 0.00 - 0.22 K/UL [facility] Basophils/100 WBC (Bld) Basophil 0.50 % (0-1 %) 0 - 1 % [facility] Differential cell count method Nom (Bld) Diff Type AUTO DIFF (Reference Range: not available) [facility] Eosinophils (Bld) [#/Vol] Abs Eos 0.07 K/UL (0-0.45 K/UL) 0 - 0.45 K/UL [facility] Eosinophils/100 WBC (Bld) Eosinophil 1.90 % (0-3 %) 0 - 3 % [facility] Erythrocyte distribution width (RBC) [Entitic vol] RDW SD 39.4 FL (37.0-54.0 FL) 37.0 - 54.0 FL [facility] Erythrocyte distribution width (RBC) [Ratio] RDW CV 12.6 % (11.7-15.0 %) 11.7 - 15.0 % [facility] Hematocrit (Bld) [Volume fraction] HCT 36.2 % L (41-50 %) Low 41 - 50 % [facility] Hemoglobin (Bld) [Mass/Vol] HGB 11.5 GM/DL L (13.5-16.5 GM/DL) Low 13.5 - 16.5 GM/DL [facility] Immature granulocytes (Bld) [#/Vol] Abs Imm Neut 0.01 K/UL (0.0-0.1 K/UL) 0.0 - 0.1 K/UL S Lymphocytes (Bld) [#/Vol] Abs Lymph 1.03 K/UL L (1.2-3.2 K/UL) Low 1.2 - 3.2 K/UL [facility] Lymphocytes/100 WBC (Bld) Lymphocyte 27.80 % (20-40 %) 20 - 40 % [facility] MCH (RBC) [Entitic mass] MCH 27.4 PG (26-34 PG) 26 - 34 PG S MCHC (RBC) [Mass/Vol] MCHC 31.8 % (31-37 %) 31 - 37 % S MCV (RBC) [Entitic vol] MCV 86.4 FL (80-100 FL) 80 - 100 FL S Monocytes (Bld) [#/Vol] Abs Gage 0.45 K/UL (0-0.8 K/UL) 0 - 0.8 K/UL [facility] Monocytes/100 WBC (Bld) Monocyte 12.10 % H (0-8 %) High 0 - 8 % [facility] Neutrophils (Bld) [#/Vol] Abs.Neut.Calculated 2.13 K/UL (Reference Range: not available) Performed at [facility] [address] [facility] [address] [facility] Neutrophils (Bld) [#/Vol] Abs Neut 2.13 K/UL (1.8-7.7 K/UL) 1.8 - 7.7 K/UL S Neutrophils.immature/ 100 WBC (Bld) Immature Neut % 0.30 % (0.0-1.0 %) 0.0 - 1.0 % [facility] Nucleated RBC/100 WBC (Bld) [Ratio] NRBCs 0 /100 WBC (0 /100 WBC) [facility] Platelet mean volume (Bld) [Entitic vol] MPV 10.9 CU (7.0-12.6 CU) 7.0 - 12.6 CU [facility] Platelets (Bld) [#/Vol] PLT 141 K/UL L (150-450 K/UL) Low 150 - 450 K/UL [facility] RBC (Bld) [#/Vol] RBC 4.19 M/UL L (4.5 -5.5 M/UL) Low 4.5 - 5.5 M/UL [facility] Segmented neutrophils/100 WBC (Bld) Granulocyte 57.40 % (50-70 %) 50 - 70 % [facility] WBC (Bld) [#/Vol] WBC 3.7 K/UL L (4.5- 11.0 K/UL) Low 4.5 - 11.0 K/UL [facility] No Panel Informationon 03-18 HS Troponin T Delta 0 (0-4 ) Performed at [facility] [address] [place] [id number] - 4 [facility] Office Visit (Internal Medic ine)on 03-15-2021 Follow-up visit Diagnoses/Problems Health Maintenance/Risks Encounter for preventive health examination (V70.0) (Z00.00) Assessed Renal artery stenosis (440.1) (I70.1) Esophageal spasm (530.5) (K22.4) GERD (gastroesophageal reflux disease) (530.81) (K21.9) Pancytopenia (284.19) (D61.818) Current smoker (305.1) (F17.200) Regular alcohol consumption (V69.8) (Z78.9) Essential hypertension (401.9) (I10) Bipolar 2 disorder (296.89) (F31.81) ETOH abuse (305.00) (F10.10) Chest pain (786.50) (R07.9) Ascending aortic aneurysm (441.2) (I71.2) Orders Esophageal spasm, GERD (gastroesophageal reflux disease) Gastroenterology Referral Evaluation and Treatment Evaluate AND Treat Status: Hold For - Scheduling Requested for: [id number] Ordered;For: Esophageal spasm, GERD (gastroesophageal reflux disease); Ordered By: Viral Amado Performed: Due: [id number] Essential hypertension, Renal artery stenosis Renew: Losartan Potassium 50 MG Oral Tablet; TAKE 1 TABLET DAILY Rx By: Viral Amado; Dispense: 30 Days ; #:30 Tablet; Refill: 1;For: Essential hypertension, Renal artery stenosis; JOSE = N; Sent To: [id number] Health Maintenance Osteopathic Manipulation Treatment Evaluation and Treatment Evaluate AND Treat Status: Hold For - Scheduling Requested for: [id number] Ordered;For: Health Maintenance; Ordered By: Viral Amado Performed: Due: [id number] Pancytopenia Benign Hematology Referral Evaluation and Treatment Evaluate AND Treat Status: Hold For - Scheduling Requested for: [id number] Ordered;For: Pancytopenia; Ordered By: Viral Amado Performed: Due: [id number] o Renal artery stenosis Nephrology Referral Evaluation and Treatment Evaluate AND Treat Status: Hold For - Scheduling Requested for: [id number] Ordered;For: Renal artery stenosis; Ordered By: Viral Amado Performed: Due: [id number] Provider Impressions Patient is a 50-year-old male with past medical history of ascending aortic aneurysm, esophageal spasm, benign essential hypertension, pancytopenia, unilateral renal artery stenosis presents to discuss ongoing medical issues. His ongoing care is very difficult considering he has complicated medical conditions that are further type complicated by his social surroundings, and the fact that he moves between cities and by the fact that his care is being delivered by entirely different geographical areas in [place] (which is unusual). Of note he has been to multiple ERs including the [place] emergency room [facility] emergency room GI.emergency room [facility] emergency room for similar complaints and similar work-ups which have for the most part been benign without ever being admitted. ACS has been ruled out has been evaluated by cardiology and no obvious cardiac etiologies have been determined. He also has been evaluated by gastroenterology with recommendation for upper EGD to further evaluate the chest pains and dysphagia however patient has not scheduled it as of yet. Explained to the patient that we can help facilitate care but he needs to follow-up with his specialists Thoracic aortic aneurysm 4.4 CM I have referred the case to the aortic root team Can continue following with cardiology as well Advised smoking cessation. At times the chart to suggest he smokes a significant amount however patient reports smoking very infrequently Bipolar 2 disorder Unclear diagnosis and he is not on any medications for this Declining psychiatric evaluation Pancytopenia Patient will benefit from upper endoscopy and possible lower endoscopy This possibly related to EtOH intake Advised cessation Consider hematology referral Alcohol abuse Reports drinking 2 beers a day however at various points in the chart the number of drinks can vary drastically Advised complete cessation Not interested in addictive recovery services The alcohol may explain the pancytopenia Renal artery stenosis unilateral Continue losartan Referral to nephrology for input and evaluation Chronic pain?/GERD/esophageal spasm versus other Patient states that he needs a 30-day medical note to provide to the social sciences instructor team in [facility] in order to get services Explained that we cannot provide letters simply to obtain social sciences instructor Patient is to follow-up with gastroenterology for his upper endoscopy If there is a reasonable medical needed for 30 days off of work such a letter can be written Cardiac etiology has been ruled out Referral for OMM Please have your physicians in [place] provide all necessary documents regarding her care if transition of care is desired 4.4 and centimeters Chief Complaint Nov/Estcare History of Present IllnessPatient is a 50-year-old male with past medical history of ascending aortic aneurysm, esophageal spasm, benign essential hypertension, pancytopenia, unilateral renal artery stenosis presents to discuss ongoing medical issues. It is unclear at this time if he wishes to establish care. He curren (more content not included)... Normal [employer] Tobacco Screening.on 021 Fall risk assessment a) No falls within the last year [employer] Work Phone: Tobacco use status CPHS a) Yes [employer] Phone: Complete Blood Count + Diffe ubaldo 03-14-2021 Basophils/100 WBC (Bld) 0.7 % 0.0 - 2.0 [employer] Phone: Erythrocyte distribution width (RBC) [Ratio] 12.8 % See Below [employer] Phone: Comment on above: Reference Range: 11. 5 - 14.5 Hematocrit (Bld) [Volume fraction] 39.5 % below low threshold See Below [facility] [email or web address] Work Phone: [phone] Comment on above: Reference Range: 41. 0 - 52.0 Hemoglobin (Bld) [Mass/Vol] 13.7 g/dL See Below [facility] [email or web address] Work Phone: [phone] Comment on above: Reference Range: 13. 5 - 17.5 Lymphocytes/100 WBC (Bld) 26.1 % See Below [facility] [email or web address] Work Phone: [phone] Comment on above: Reference Range: 13. 0 - 44.0 MCHC (RBC) [Mass/Vol] 34.7 g/dL See Below [facility] [email or web address] Work Phone: [phone] Comment on above: Reference Range: 32. 0 - 36.0 MCV (RBC) [Entitic vol] 83 fL 80 - 100 [facility] [email or web address] Work Phone: [phone] Monocytes/100 WBC (Bld) 10.7 % 2.0 - 10.0 [facility] [email or web address] Work Phone: [phone] Neutrophils/100 WBC (Bld) 60.9 % See Below [facility] [email or web address] Work Phone: [phone] Comment on above: Reference Range: 40. 0 - 80.0 Platelets (Bld) [#/Vol] 153 10*3/uL 150 - 450 [facility] [email or web address] Work Phone: [phone] RBC (Bld) [#/Vol] 4.75 {x10E12/L} See Below [facility] [email or web address] Work Phone: [phone] Comment on above: Reference Range: 4.5 0 - 5.90 WBC (Bld) [#/Vol] 4.4 10*3/uL 4.4 - 11.3 [facility] [email or web address] Work Phone: [phone] Complete Blood Count + Differential 0.03 {x10E9/L} See Below [facility] [email or web address] Work Phone: [phone] Comment on above: Reference Range: 0.0 0 - 0.10 Complete Blood Count + Differential 0.06 {x10E9/L} See Below [employer] Work Phone: Comment on above: Reference Range: 0.0 0 - 0.70 Complete Blood Count + Differential 0.47 {x10E9/L} See Below [employer] Phone: Comment on above: Reference Range: 0.1 0 - 1.00 Complete Blood Count + Differential 1.15 {x10E9/L} below low threshold See Below [employer] Phone: Comment on above: Reference Range: 1.2 0 - 4.80 Complete Blood Count + Differential 2.68 {x10E9/L} See Below [employer] Phone: Comment on above: Reference Range: 1.2 0 - 7.70 Complete Blood Count + Differential 1.4 % 0.0 - 6.0 [employer] Phone: Complete Blood Count + Differential 0.2 % 0.0 - 0.9 [employer] Phone: Comment on above: Immature Granulocyte Count (IG) includes promyelocytes, myelocytes and metamyelocytes but does not include bands. Percent differential counts (%) should be interpreted in the context of the absolute cell counts (cells/L). Complete Blood Count + Differential 0.0 {/100_WBC} 0.0-0.0 [place] [employer] Phone: Laboratory - Chemistry and C hemistry - challengeon 03-14-2021 Albumin BCP dye [Mass/Vol] 4.4 g/dL 3.4 - 5.0 [employer] Phone: ALP [Catalytic activity/Vol] 54 U/L 33 - 120 [employer] Phone: ALT With P-5'-P [Catalytic activity/Vol] 20 U/L 10 - 52 [place] [employer] Phone: Comment on above: Patients treated wit h Sulfasalazine may generate falsely decreased results for ALT. Anion gap [Moles/Vol] 12 mmol/L 10 - 20 [facility] [employer] Work Phone: [phone] AST With P-5'-P [Catalytic activity/Vol] 19 U/L 9 - 39 [facility] [employer] Work Phone: [phone] Bilirubin [Mass/Vol] 0.5 mg/dL 0.0 - 1.2 [facility] [employer] Work Phone: [phone] Calcium [Mass/Vol] 9.8 mg/dL 8.6 - 10.6 [facility] [employer] Work Phone: [phone] Chloride [Moles/Vol] 103 mmol/L 98 - 107 [facility] [employer] Work Phone: [phone] CO2 [Moles/Vol] 28 mmol/L 21 - 32 [facility] [employer] Work Phone: [phone] Creatinine [Mass/Vol] 0.87 mg/dL See Below [facility] [employer] Work Phone: [phone] Comment on above: Reference Range: 0.5 0 - 1.30 Glucose [Mass/Vol] 73 mg/dL below low threshold 74 - 99 [facility] [employer] Work Phone: [phone] Potassium [Moles/Vol] 3.9 mmol/L 3.5 - 5.3 [facility] [employer] Work Phone: Protein [Mass/Vol] 7.3 g/dL 6.4 - 8.2 [facility] [employer] Work Phone: [phone] Sodium [Moles/Vol] 139 mmol/L 136 - 145 [facility] [employer] Work Phone: Urea nitrogen [Mass/Vol] 12 mg/dL 6 - 23 [facility] [employer] Work Phone: MRI Cardiac w/wo contrast fo r Morph/Funct and Valve Dzon 03-14-2021 MRI Cardiac w/wo contrast for Morph/Funct and Valve Dz Normal [facility] [employer] Work Phone: MRI Cardiac w/wo contrast wi th Regadenoson stress for Morph/Funct and Valve Dzon 03-14-2021 MRI Cardiac w/wo contrast with Regadenoson stress for Morph/Funct and Valve Dz Please click on the link to view the study images Normal [facility] [email or web address] Work Phone: No Panel Informationon 03-14 11 pg/mL 0 - 99 [facility] [email or web address] Work Phone: Comment on above: . <100 pg/mL - Heart failure [id number] pg/mL - Intermediate probability of acute heart. failure exacerbation. Correlate with clinical. context and patient history. >=300 pg/mL - Heart Failure likely. Correlate with clinical. context and patient history. Biotin interference may cause falsely decreased results. Patients taking a Biotin dose of up to 5 mg/day should refrain from taking Biotin for 24 hours before sample collection. Providers may contact their local laboratory for further information. >60 >60 [facility] [email or web address] Work Phone: Comment on above: CALCULATIONS OF NIKOLE MATED GFR ARE PERFORMED USING THE MDRD STUDY EQUATION FOR THE IDMS-TRACEABLE CREATININE METHODS. CLIN CHEM 2007;53:766-72 [email or web address]?RetrieveTestByDateTim e?UmadfkqLK=[id number]&Da te=14-03-2021&Time=17%3a 27%3a08%3a00&TestType=EC G&Site=1&OutputType=PDF& Ext=PDF [facility] [email or web address] Work Phone: Please see ED Provid er Note for formal interpretation [facility] [email or web address] Work Phone: Normal [facility] [email or web address] Work Phone: [phone] [facility] [email or web address] Work Phone: [phone] [place] [employer] Work Phone: [phone] [place] [employer] Work Phone: [phone] [facility] [email or web address] Work Phone: [phone] [place] [employer] Work Phone: [phone] [place] [employer] Work Phone: [phone] [facility] [employer] Work Phone: [phone] [facility] [employer] Work Phone: [phone] [facility] [employer] Work Phone: [phone] [facility] [employer] Work Phone: [phone] [facility] [employer] Work Phone: [phone] [facility] [employer] Work Phone: [phone] [facility] [employer] Work Phone: [phone] [facility] [employer] Work Phone: [phone] [email or web address]?RetrieveTestByDateTim e?EcfbdjrRN=[id number]&Da te=14-03-2021&Time=13%3a 38%3a10%3a00&TestType=EC G&Site=1&OutputType=PDF& Ext=PDF [facility] [employer] Work Phone: [phone] Please see ED Provid er Note for formal interpretation [facility] [employer] Work Phone: [phone] Normal [facility] [employer] Work Phone: [phone] [facility] [employer] Work Phone: [phone] [facility] [employer] Work Phone: [phone] [facility] [employer] Work Phone: [phone] [facility] [employer] Work Phone: [phone] [facility] [employer] Work Phone: [phone] [facility] [employer] Work Phone: [phone] [facility] [employer] Work Phone: [phone] [facility] [employer] Work Phone: [phone] [facility] [employer] Work Phone: [phone] [facility] [employer] Work Phone: [phone] [facility] [employer] Work Phone: [phone] [facility] [employer] Work Phone: [phone] [facility] Work Phone: [phone] [facility] [email or web address] Work Phone: Radiologyon 03-14-2021 XR Chest Single view Normal [email or web address] Work Phone: Troponin I, Serumon 03-14-20 21 Troponin I.cardiac [Mass/Vol] ng/mL See Below [facility] Phone: Comment on above: Reference Range: 0.0 0 - 0.03LESS THAN 0.04 NG/ML: NEGATIVEREPEAT TESTING IN THREE TO SIX HOURSIF CLINICALLY INDICATED.0.04 - 0.5 NG/ML: CONSISTENT WITH POSSIBLECARDIAC DAMAGE AND POSSIBLE INCREASEDCLINICAL RISK.SERIAL MEASUREMENTS MAY HELP ASSESS EXTENT OFMYOCARDIAL DAMAGE.>0.5 NG/ML: CONSISTENT WITH CARDIAC DAMAGE,INCREASED CLINICAL RISK AND MYOCARDIALINFARCTION. SERIAL MEASUREMENTS MAY HELPASSESS EXTENT OF MYOCARDIAL DAMAGE..Note: Troponin I testing is performed using different testing methodology at [facility] than at other [facility]. Direct result comparisons should only be made within the same method.. Biotin interference may cause falsely decreased results. Patients taking a Biotin dose of up to 5 mg/day should refrain from taking Biotin for 24 hours before sample collection. Providers may contact their laboratory for further information. URINALYSIS WITH CULTURE IF I NDICATEDon 03-14-2021 Color (U) YELLOW See Below [facility] [email or web address] Work Phone: Comment on above: Reference Range: STR AW,YELLOW Glucose Ql (U) Negative NEGATIVE [email or web address] Work Phone: Ketones Ql (U) Negative NEGATIVE [email or web address] Work Phone: Leukocyte esterase Test strip Ql (U) Negative NEGATIVE [facility] [employer] Phone: pH (U) 5.0 [pH] 5.0 - 8.0 [email or web address] Work Phone: Protein (U) [Mass/Vol] Negative NEGATIVE [facility] [employer] Phone: RBC (U) [#/Vol] Negative NEGATIVE [email or web address] Work Phone: Specific gravity (U) [Rel density] 1.012 1 See Below [facility] [email or web address] Work Phone: Comment on above: Reference Range: 1.0 05 - 1.035 URINALYSIS WITH CULTURE IF INDICATED Negative NEGATIVE [facility] [employer] Phone: URINALYSIS WITH CULTURE IF INDICATED <2.0 0.0 - 1.9 [facility] [email or web address] Work Phone: URINALYSIS WITH CULTURE IF INDICATED CLEAR CLEAR [email or web address] Work Phone: BASIC METABOLIC PANELon 02-21 0-2020 Anion gap [Moles/Vol] 13 mmol/L Normal 10 - 20 [facility] Comment on above: Performed By: #### B MP #### [facility] [address] [place] [address] Calcium [Mass/Vol] 9.0 mg/dL Normal 8.6 - 10.3 [facility] Comment on above: Performed By: #### B MP #### [facility] [address] [place] [address] Chloride [Moles/Vol] 100 mmol/L Normal 98 - 107 [facility] Comment on above: Performed By: #### B MP #### [facility] [address] [place] [address] Creatinine [Mass/Vol] 0.96 mg/dL Normal 0.50 - 1.30 [facility] Comment on above: Performed By: #### B MP #### [facility] [address] [place] [address] GFR- AM. >60 Normal >60 [facility] Comment on above: Result Comment: CALC ULATIONS OF ESTIMATED GFR ARE PERFORMED USING THE MDRD STUDY EQUATION FOR THE IDMS-TRACEABLE CREATININE METHODS. CLIN CHEM 2007;53:766-72 Performed By: #### B MP #### [facility] [address] [place] [address] GFR-NON AM. >60 Normal >60 [facility] Comment on above: Performed By: #### B MP #### [facility] [address] [facility] [place] [address] Glucose [Mass/Vol] 108 mg/dL High 74 - 99 [facility] Comment on above: Performed By: #### B MP #### [facility] [address] [place] [address] HCO3 (Bld) [Moles/Vol] 28 mmol/L Normal 21 - 32 [facility] Comment on above: Performed By: #### B MP #### [facility] [address] [place] [address] Potassium [Moles/Vol] 3.6 mmol/L Normal 3.5 - 5.3 [facility] Comment on above: Performed By: #### B MP #### [facility] [address] [place] [address] Sodium [Moles/Vol] 137 mmol/L Normal 136 - 145 [facility] Comment on above: Performed By: #### B MP #### [facility] [address] [place] [address] Urea nitrogen [Mass/Vol] 12 mg/dL Normal 6 - 23 [facility] Comment on above: Performed By: #### B MP #### [facility] [address] [facility] [place] [address] CBC AND DIFFERENTIALon 03-02 % AUTOMATED IMMATURE GRAN 0.9 % Normal 0.0 - 0.9 [facility] Comment on above: Result Comment: Kath ture Granulocyte Count (IG) includes promyelocytes, myelocytes and metamyelocytes but does not include bands. Percent differential counts (%) should be interpreted in the context of the absolute cell counts (cells/L). Performed By: #### T ROP2 #### [facility] [address] [place] [address] Basophils (Bld) [#/Vol] 0.01 10*3/uL Normal 0.00 - 0.10 [facility] Comment on above: Performed By: #### T ROP2 #### [facility] [address] [place] [address] Basophils/100 WBC (Bld) 0.3 % Normal 0.0 - 2.0 [facility] Comment on above: Performed By: #### T ROP2 #### [facility] [address] [place] [address] Eosinophils (Bld) [#/Vol] 0.02 10*3/uL Normal 0.00 - 0.70 [facility] Comment on above: Performed By: #### T ROP2 #### [facility] [address] [place] [address] Eosinophils/100 WBC (Bld) 0.6 % Normal 0.0 - 6.0 [facility] Comment on above: Performed By: #### T ROP2 #### [facility] [address] [place] [address] Erythrocyte distribution width (RBC) [Ratio] 12.8 % Normal 11.5 - 14.5 [facility] Comment on above: Performed By: #### T ROP2 #### [facility] [address] [place] [address] Hematocrit (Bld) [Volume fraction] 37.3 % Low 41.0 - 52.0 [facility] Comment on above: Performed By: #### T ROP2 #### [facility] [address] [facility] [place] [address] Hemoglobin (Bld) [Mass/Vol] 12.5 g/dL Low 13.5 - 17.5 [facility] Comment on above: Performed By: #### T ROP2 #### [facility] [address] [place] [address] Lymphocytes (Bld) [#/Vol] 0.71 10*3/uL Low 1.20 - 4.80 [facility] Comment on above: Performed By: #### T ROP2 #### [facility] [address] [place] [address] Lymphocytes/100 WBC (Bld) 21.0 % Normal 13.0 - 44.0 [facility] Comment on above: Performed By: #### T ROP2 #### [facility] [address] [place] [address] MCHC (RBC) [Mass/Vol] 33.5 g/dL Normal 32.0 - 36.0 [facility] Comment on above: Performed By: #### T ROP2 #### [facility] [address] [facility] [place] [address] MCV (RBC) [Entitic vol] 85 fL Normal 80 - 100 [facility] Comment on above: Performed By: #### T ROP2 #### [facility] [address] [place] [address] Monocytes (Bld) [#/Vol] 0.32 10*3/uL Normal 0.10 - 1.00 [facility] Comment on above: Performed By: #### T ROP2 #### [facility] [address] [facility] [place] [address] Monocytes/100 WBC (Bld) 9.5 % Normal 2.0 - 10.0 [facility] Comment on above: Performed By: #### T ROP2 #### [facility] [address] [facility] [place] [address] Neutrophils (Bld) [#/Vol] 2.29 10*3/uL Normal 1.20 - 7.70 [facility] Comment on above: Performed By: #### T ROP2 #### [facility] [address] [facility] [place] [address] Neutrophils/100 WBC (Bld) 67.7 % Normal 40.0 - 80.0 [facility] Comment on above: Performed By: #### T ROP2 #### [facility] [address] [facility] [place] [address] Platelets (Bld) [#/Vol] 143 10*3/uL Low 150 - 450 [facility] Comment on above: Performed By: #### T ROP2 #### [facility] [address] [facility] [place] [address] RBC 4.39 x10E12/L Low 4.50 - 5.90 [facility] Comment on above: Performed By: #### T ROP2 #### [facility] [address] [facility] [facility] [place] [address] WBC (Bld) [#/Vol] 3.4 10*3/uL Low 4.4 - 11.3 [facility] Comment on above: Performed By: #### T ROP2 #### [facility] [address] [place] [address] CHEST 1 VIEWon 03-02-2021 CHEST 1 VIEW STUDY: Chest Radiograph; 03/02/2021 and 07:05 AM INDICATION: Thickness in throat feels like liquids get backed up. COMPARISON: 02/28/2021 XR Chest. ACCESSION NUMBER(S): [id number] ORDERING CLINICIAN: TERRY GARCÍA MD TECHNIQUE: Frontal chest was obtained at 08:38 hours. FINDINGS: CARDIOMEDIASTINAL SILHOUETTE: Cardiomediastinal silhouette is normal in size and configuration. LUNGS: Lungs are clear. ABDOMEN: No remarkable upper abdominal findings. BONES: No acute osseous changes. IMPRESSION: No acute cardiopulmonary abnormality. Signed by Karson White MD Electronically signed by: KARSON WHITE MD Normal [facility] Complete Blood Count + Diffe rentialon 03-02-2021 Basophils/100 WBC (Bld) 0.3 % 0.0 - 2.0 [facility] [email or web address] Work Phone: Erythrocyte distribution width (RBC) [Ratio] 12.8 % See Below [facility] [employer] Phone: Comment on above: Reference Range: 11. 5 - 14.5 Hematocrit (Bld) [Volume fraction] 37.3 % below low threshold See Below [facility] [employer] Phone: Comment on above: Reference Range: 41. 0 - 52.0 Hemoglobin (Bld) [Mass/Vol] 12.5 g/dL below low threshold See Below [facility] [employer] Phone: Comment on above: Reference Range: 13. 5 - 17.5 Lymphocytes/100 WBC (Bld) 21.0 % See Below [facility] [employer] Phone: Comment on above: Reference Range: 13. 0 - 44.0 MCHC (RBC) [Mass/Vol] 33.5 g/dL See Below [facility] [email or web address] Work Phone: Comment on above: Reference Range: 32. 0 - 36.0 MCV (RBC) [Entitic vol] 85 fL 80 - 100 [employer] Phone: Monocytes/100 WBC (Bld) 9.5 % 2.0 - 10.0 [employer] Phone: Neutrophils/100 WBC (Bld) 67.7 % See Below [employer] Phone: Comment on above: Reference Range: 40. 0 - 80.0 Platelets (Bld) [#/Vol] 143 10*3/uL below low threshold 150 - 450 [employer] Phone: [phone] RBC (Bld) [#/Vol] 4.39 {x10E12/L} below low threshold See Below [employer] Phone: Comment on above: Reference Range: 4.5 0 - 5.90 WBC (Bld) [#/Vol] 3.4 10*3/uL below low threshold 4.4 - 11.3 [employer] Phone: Complete Blood Count + Differential 0.01 {x10E9/L} See Below [employer] Phone: Comment on above: Reference Range: 0.0 0 - 0.10 Complete Blood Count + Differential 0.02 {x10E9/L} See Below [employer] Phone: Comment on above: Reference Range: 0.0 0 - 0.70 Complete Blood Count + Differential 0.32 {x10E9/L} See Below [employer] Phone: Comment on above: Reference Range: 0.1 0 - 1.00 Complete Blood Count + Differential 0.71 {x10E9/L} below low threshold See Below [employer] Phone: Comment on above: Reference Range: 1.2 0 - 4.80 Complete Blood Count + Differential 2.29 {x10E9/L} See Below [employer] Phone: Comment on above: Reference Range: 1.2 0 - 7.70 Complete Blood Count + Differential 0.6 % 0.0 - 6.0 [employer] Phone: Complete Blood Count + Differential 0.9 % 0.0 - 0.9 [email or web address] Work Phone: Comment on above: Immature Granulocyte Count (IG) includes promyelocytes, myelocytes and metamyelocytes but does not include bands. Percent differential counts (%) should be interpreted in the context of the absolute cell counts (cells/L). Laboratory - Chemistry and C hemistry - challengeon 03-02-2021 Anion gap [Moles/Vol] 13 mmol/L 10 - 20 [email or web address] Work Phone: Calcium [Mass/Vol] 9.0 mg/dL 8.6 - 10.3 [email or web address] Work Phone: Chloride [Moles/Vol] 100 mmol/L 98 - 107 [email or web address] Work Phone: CO2 [Moles/Vol] 28 mmol/L 21 - 32 [email or web address] Work Phone: Creatinine [Mass/Vol] 0.96 mg/dL See Below [facility] [employer] Phone: Comment on above: Reference Range: 0.5 0 - 1.30 Glucose [Mass/Vol] 108 mg/dL above high threshold 74 - 99 [facility] [employer] Phone: Potassium [Moles/Vol] 3.6 mmol/L 3.5 - 5.3 [email or web address] Work Phone: Sodium [Moles/Vol] 137 mmol/L 136 - 145 [email or web address] Work Phone: Urea nitrogen [Mass/Vol] 12 mg/dL 6 - 23 [email or web address] Work Phone: No Panel Informationon 03-02 >60 >60 [facility] [employer] Phone: Comment on above: CALCULATIONS OF NIKOLE MATED GFR ARE PERFORMED USING THE MDRD STUDY EQUATION FOR THE IDMS-TRACEABLE CREATININE METHODS. CLIN CHEM 2007;[id number] Provider Note - ED v2on 06- Provider Note - ED v2 Provider Note - ED v2: Chart Review: ED NOTES ED NOTES: HPI: This is a 50-year-old male who comes the emergency department hoping to get admitted to the hospital to have endoscopy performed. He states he has been having some occasional central chest discomfort for weeks. Nonradiating. Associated with eating; but eating does not always cause the symptoms. States that he has some pain when swallowing solids. Occasional choking. States that he has been to the emergency department through the , the [facility] and [facility] multiple times over the past few weeks. He has had x-rays and CT scans and blood work. He is scheduled for an endoscopy at [facility] tomorrow with Dr. Josh Werner. He has no new symptoms today necessarily. He recently resided in [place]. He states that he cannot go back to [place] due to some issues with a significant other who is bipolar. He states that he is applying for [place] insurance but it will be a month until he has coverage and he is worried that he cannot wait that long to have this procedure done. He is worried that he has esophageal cancer. No new shortness of breath. No fevers. No recent changes in bowel or bladder habits. No blood in stool. He has a history of bipolar disorder and an ascending aortic aneurysm. He reports that he has history of smoking as well. Past medical history See nursing documentation Past surgical history See nursing documentation Allergies See nursing documentation Medications See medication reconciliation Review of Systems ROS: Please reference history of present illness. All other systems were reviewed and negative. Physical Exam Vital signs: Per chart Constitutional: NAD, non-toxic Eyes: PERRL, Conjunctiva normal, No discharge ENT: External ears appear normal, Nose is without drainage, MMM, no intraoral lesions Neck: Normal ROM, No lymphadenopathy, No stridor Cardiac: Regular rate and rhythm Pulmonary/Chest: No respiratory distress, Normal breath sounds, No chest tenderness Abdomen: BS present, Soft, Non-tender without rebound/guarding Back: No tenderness, No contusions Extremities: Normal ROM, No edema, No tenderness, intact distal pulses Skin: Warm and dry, No rashes, No erythema Neurologic: Alert and oriented x 3, Normal motor function, Normal sensation, No focal neurologic deficits Diagnostic Studies EKG: Sinus rhythm at a rate of 72. No ST segment elevation concerning for acute CA. EKG appears very similar to the patient's previous EKG from February 28 of this year, 2 days ago. Emergency Department Course / Medical Decision Making Pt presents bc he would like to have upper endoscopy bc he is worried about esophageal cancer. He has been having CP for some time- multiple ED visit for the same. I reviewed the records; he has had other visits for similar symptoms with negative work-ups. I got our clinical social work therapist involved who interacted with the patient on multiple occasions. The emergency department patient access team more closely with the patient regarding his insurance. Chest x-ray EKG and blood work were reassuring. Repeat troponin was negative. Patient remained stable in the emergency department. When I checked on him he was resting and appears comfortable. He tolerated coffee, water and orange juice while in the emergency department. His vital signs remained overall reassuring. Pt took his prescribed clonidine while in the ED. I have low suspicion for acute coronary syndrome. Patient does not require hospitalization at this point. No emergency medical conditions has been identified. Patient was observed in the emergency department for over 7 hours and remained stable in that time. He was provided with multiple resources by our clinical social work therapist. He is connected with GI services. I encouraged him to call to get his appointment for his endoscopy rescheduled. Impression Dysphagia Chest discomfort Disposition Discharged HISTORY OF PRESENTING ILLNESS HOSEA is a 50 year old Male and was seen by me at 02-Mar-2021 07:30 for a chief complaint of other (Pt has multiple visits this week for something growing in throat, feels like he's being choked )(1). Triage Information: Most recent Vital Sign Value Date Temp (F): 98 03-02-2021 07:29 Temp (C): 36.7 03-02-2021 07:29 Heart Rate (beats/min): 95 03-02-2021 07:29 Respirations (breaths/min): 16 03-02-2021 07:29 SpO2 (%): 100 03-02-2021 07:29 BP Systolic (mm Hg): 147 03-02-2021 07:29 BP Diastolic (mm Hg): 100 03-02-2021 07:29 PAST MEDICAL HISTORY ATTESTATION: I have reviewed and confirmed nurse's/medic's notes for patient's medications, allergies, and medical, surgical, family and social history ALLERGIES/INTOLERANCES: Allergy Allergen: Erythromycin Base Type: Drug Reaction: Unknown Allergen: caffine Type: Food Reaction: Other A (more content not included)... Normal [facility] Radiologyon 03-02-2021 XR Chest Single view Normal [facility] [employer] Work Phone: Risk Screen - Adult Emergenc yon 03-02-2021 Risk Screen - Adult Emergency Preferred Language: Preferred Language: Preferred Language for Discussing Health Care (patient/designee)Fran villalta Advanced Directives: Advance Directive/DNRno Family Violence Adult: Abuse Screen: Are you or have you been threatened or abused physically, emotionally, or sexually by anyoneno Learning Assessment (Patient): Learning Assessment (Patient): Patient is Able to be Assessed for Learningyes Factors Influencing Readiness to Learnanxiety; pain Factors that Impact Ability to Learnnone Devices/Methods Used to Communicatenone Learning Preferencesverbal instruction; written material Cultural Considerationsnone Developmental Considerationsnone Zoroastrian Considerationsnone Learning Assessment (Other Learner): Learning Assessment (Other Learner): Other learner availableno Pressure Injury/TB/Substance: Pressure Injury: Do you have a coughno Substance Use Current or Former Historynever: Cigarette/Tobacco, e-Cigarette/Vaping, Street Drugs YES: Alcohol Alcohol Usedaily Alcohol Use Additional Commentsa beer/ day Admission Risk Screen: Significant IndicatorsComplete CAGE: CAGE: Is this an injured patient at a Trauma Center ([facility]/[place] /[place]): no Electronic Signatures: Bal Martinez (BROOKLYNN) (Signed 02-Mar-2021 07:36) Authored: Preferred Language, Advanced Directives, Family Violence Adult, Learning Assessment (Patient), Learning Assessment (Other Learner), Pressure Injury/TB/Substance, Pressure Injury, CAGE Last Updated: 02-Mar-2021 07:36 by Bal Martinez (BROOKLYNN) Normal [facility] TROPONIN Ion 03-02-2021 Troponin I.cardiac [Mass/Vol] ng/mL Normal 0.00 - 0.03 [facility] Comment on above: Result Comment: LESS THAN 0.04 NG/ML: NEGATIVE REPEAT TESTING IN THREE TO SIX HOURS IF CLINICALLY INDICATED. 0.04 - 0.5 NG/ML: CONSISTENT WITH POSSIBLE CARDIAC DAMAGE AND POSSIBLE INCREASED CLINICAL RISK. SERIAL MEASUREMENTS MAY HELP ASSESS EXTENT OF MYOCARDIAL DAMAGE. >0.5 NG/ML: CONSISTENT WITH CARDIAC DAMAGE, INCREASED CLINICAL RISK AND MYOCARDIAL INFARCTION. SERIAL MEASUREMENTS MAY HELP ASSESS EXTENT OF MYOCARDIAL DAMAGE. . Note: Troponin I testing is performed using different testing methodology at [facility] than at [facility]. Direct result comparisons should only be made within the same method. Performed By: #### T ROP2 #### [facility] [address] [place] [address] Troponin I.cardiac [Mass/Vol] ng/mL Normal 0.00 - 0.03 [facility] Comment on above: Result Comment: LESS THAN 0.04 NG/ML: NEGATIVE REPEAT TESTING IN THREE TO SIX HOURS IF CLINICALLY INDICATED. 0.04 - 0.5 NG/ML: CONSISTENT WITH POSSIBLE CARDIAC DAMAGE AND POSSIBLE INCREASED CLINICAL RISK. SERIAL MEASUREMENTS MAY HELP ASSESS EXTENT OF MYOCARDIAL DAMAGE. >0.5 NG/ML: CONSISTENT WITH CARDIAC DAMAGE, INCREASED CLINICAL RISK AND MYOCARDIAL INFARCTION. SERIAL MEASUREMENTS MAY HELP ASSESS EXTENT OF MYOCARDIAL DAMAGE. . Note: Troponin I testing is performed using different testing methodology at [facility] than at [facility]. Direct result comparisons should only be made within the same method. Performed By: #### T ROP2 #### [facility] [address] [place] [address] Triage - EDon 03-02-2021 Triage - ED Chart Review: PRIMARY ASSESSMENT HOSEA ALVAREZ'brennon primary assessment is Within Defined Limits. The airway is open and patent. Breathing spontaneous and unlabored with clear breath sounds bilaterally. Circulation is normal with good peripheral pulses. Skin is warm and dry and color is normal for race. ARRIVAL INFORMATION Means of Arrival: Ambulatory Mode of Arrival: private vehicle Arrival From: home Accompanied By: self Language: Spoken Language Preferred: [place]an CHIEF COMPLAINT HOSEA ALVAREZ is a Male patient with a chief complaint of other (Pt has multiple visits this week for something growing in throat, feels like he's being choked ). Triage Date/Time: 02-Mar-2021 07:29 WILMAN: 3 Pain Rating (0-10): 6 = Moderate Vital Signs: Temperature: 98.0F ( 36.7C) taken temporal Blood Pressure: 147/100 Mean: Heart Rate: 95 Respiratory Rate: 16 Pulse Oximetry: 100% on room air, no respiratory support. Height: 5 feet 8 inches. 172.7 CM Weight: 186.2 pounds. Calculated 84.5 kg. (stated) Calculated BMI (kg/m2): 28.331 Calculated BSA (m2) 2.01 Lynda Coma Scale: Best Eye Response: (E4) spontaneous Best Motor Response: (M6) obeys commands Best Verbal Response: (V5) oriented [place] Score: 15 Patient has homicidal thoughts: no Symptoms Are POSITIVE For: pain Last Known Well: known Time Last Known Well Date/Time: 02-Mar-2021 07:34 Risk Screens Suicide Risk Screen In the Past Month: Have you wished you were or wished you could go to sleep and not wake up no In the Past Month: Have you had any actual thoughts of killing yourself no In Your Lifetime: Have you ever done anything, started to do anything, or prepared to do anything to end your life no Molina Fall Scale Screening Has the patient fallen before (or is the patient in the ED as a result of a fall) has not had a fall Does the patient have an impaired gait does not have impaired gait Is the patient cognitively impaired not cognitively impaired Interventions: Molina Fall Interventions: LOW INTERVENTIONS: *patient oriented to surroundings and call system, * patient/family falls education completed and documented, *patients fall status communicated during bedside handoff, *whiteboard updated, *mode of toileting discussed with patient, *bed in low position with brakes locked, *call light in reach, * non-skid footwear TRAVEL HISTORY Travel History Coronavirus Screening: no exposure or symptoms Travel Exposure History: NO travel to International locations in the past 30 days PAIN Pain Scale Used: SHANNON Pain Assessment: throat Pain Rating (0-10): 6 = Moderate Past Medical History: Past Medical History Reviewedno Electronic Signatures: Bal Martinez (BROOKLYNN) (Signed 02-Mar-2021 07:35) Authored: Quick Triage, Risk Screens, Pain, Arrival, ABCD, Travel History, Chart Review, Scores, Past Medical History Last Updated: 02-Mar-2021 07:35 by Bal Martinez (BROOKLYNN) Normal [facility] Troponin I, Serumon 03-02-20 21 Troponin I.cardiac [Mass/Vol] ng/mL See Below [facility] Work [facility]: Comment on above: Reference Range: 0.0 0 - 0.03LESS THAN 0.04 NG/ML: NEGATIVEREPEAT TESTING IN THREE TO SIX HOURSIF CLINICALLY INDICATED.0.04 - 0.5 NG/ML: CONSISTENT WITH POSSIBLECARDIAC DAMAGE AND POSSIBLE INCREASEDCLINICAL RISK.SERIAL MEASUREMENTS MAY HELP ASSESS EXTENT OFMYOCARDIAL DAMAGE.>0.5 NG/ML: CONSISTENT WITH CARDIAC DAMAGE,INCREASED CLINICAL RISK AND MYOCARDIALINFARCTION. SERIAL MEASUREMENTS MAY HELPASSESS EXTENT OF MYOCARDIAL DAMAGE..Note: Troponin I testing is performed using different testing methodology at [facility] than at other [facility]. Direct result comparisons should only be made within the same method. Troponin I.cardiac [Mass/Vol] ng/mL See Below [email or web address] Work Phone: Comment on above: Reference Range: 0.0 0 - 0.03LESS THAN 0.04 NG/ML: NEGATIVEREPEAT TESTING IN THREE TO SIX HOURSIF CLINICALLY INDICATED.0.04 - 0.5 NG/ML: CONSISTENT WITH POSSIBLECARDIAC DAMAGE AND POSSIBLE INCREASEDCLINICAL RISK.SERIAL MEASUREMENTS MAY HELP ASSESS EXTENT OFMYOCARDIAL DAMAGE.>0.5 NG/ML: CONSISTENT WITH CARDIAC DAMAGE,INCREASED CLINICAL RISK AND MYOCARDIALINFARCTION. SERIAL MEASUREMENTS MAY HELPASSESS EXTENT OF MYOCARDIAL DAMAGE..Note: Troponin I testing is performed using different testing methodology at [facility] than at [facility]. Direct result comparisons should only be made within the same method. CHEST 1 VIEWon 02-28-2021 CHEST 1 VIEW STUDY: Chest Radiograph; [02/28/2021 11:25] INDICATION: Right sided chest discomfort. COMPARISON: 02/27/2021 XR Chest. ACCESSION NUMBER(S): [id number] ORDERING CLINICIAN: BAL LOMAX MD, MPH TECHNIQUE: Frontal chest was obtained at 11:14 hours. FINDINGS: CARDIOMEDIASTINAL SILHOUETTE: Cardiomediastinal silhouette is normal in size and configuration. LUNGS: Lungs are clear. ABDOMEN: No remarkable upper abdominal findings. BONES: No acute osseous changes. IMPRESSION: No acute cardiopulmonary abnormality. Signed by Karson White MD Electronically signed by: KARSON WHITE MD Normal [facility] Chart Updateon 02-28-2021 Chart Update Diagnoses/Problems Chest pain (786.50) (R07.9) Message Recorded as Task Date: 02/28/2021 09:03 AM, Created By: Antonia Cuenca Task Name: Callback Medical Advice Assigned To: Wally Lawton Regarding Patient: HOSEA ALVAREZ, Status: Active Comment: Antonia Cuenca - 28 Feb 2021 9:03 AM TASK CREATED Caller: Self; Hosea would like Dr. Lawton to call him back personally. 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 Hosea has called several times asking for an Echo and Dr. Lawton has told him he does not need an Echo at this time. He needs the ordered testing (Stress MRI scheduled for 03/14/21 at [facility] and the Holter monitor done on 02/21/21), I explained this to Hosea. Hosea is asking that we re-address his concern / need for an Echo or KENNETH. Hosea states he was told in the past that he has valve problems and possible endocarditis. When Hosea eat he then can't feel his hands or feet and he believes that he has inflammation around his heart and after he eats it pushes up into the inflammation and that causes his hands and feet to go numb. Hosea states that he is having a G.I. scope this week. To [facility] for review. ---ssd. I called and answered his questions. He reports that after he eats he feels there is something pressing up on my heart . He is having an EGD in the near future. I told him to follow up with the cardiac MRI and stress test as ordered. I advised him to direct his noncardiac complaints to his PCP. The patient expressed good understanding. Signatures Electronically signed by : Wally Lawton MD; Feb 28 2021 10:06AM EST (Author) Normal [employer] Coronavirus 2019 RNA by PCR, Screening Asymptomticon 02-28-2021 Coronavirus 2019 RNA by PCR, Screening Asymptomtic Not detected Normal See Below [facility] Work Phone: Comment on above: SOURCE: Nasal, Nasop haryngealReference Range: Not Detected.This assay is designed to detect the N, ORF1ab and/or S genes of SARS-CoV-2 via nucleic acid amplification. A Negative (NOT DETECTED) result does not preclude 2019-nCoV infection since the adequacy of sample collection and/or low viral burden may result in presence of viral nucleic acids below the clinical sensitivity of this test method. Negative (NOT DETECTED) result should not be used as the sole basis for treatment or other patient management decisions. Rather negative results should be combined with clinical observations, patient history, and epidemiological information to make patient management decisions.Fact sheet for providers: https://www.fda.gov/media/620607/downloadFact sheet for patients: https://www.fda.gov/media/651870/downloadThis test has received FDA Emergency Use Authorization (EUA) and has been verified by [facility] ([facility]). This test is only authorized for the duration of time that circumstances exist to justify the authorization of the emergency use of in vitro diagnostic tests for the detection of SARS-CoV-2 virus and/or diagnosis of COVID-19 infection under section 564(b)(1) of the Act, 21 U.S.C. 360bbb-3(b)(1), unless the authorization is terminated or revoked sooner. [facility] is certified under CLIA-88 as qualified to perform high complexity testing. Testing is performed in the [facility] laboratories located at [address] [place] [address]. No Panel Informationon 02-28 [email or web address]?RetrieveTestByDateTim e?WzsedvsAX=[id number]&Da te=04-28-2021&Time=10%3a 49%3a37%3a00&TestType=EC G&Site=7&OutputType=PDF& Ext=PDF [address] [facility] [address] Work Phone: Normal sinus rhythm [address] [facility] [address] Work Phone: [phone] [facility] Work Phone: [phone] Work Phone: [phone] [facility] [address] Work Phone: [phone] [facility] Work Phone: [phone] Work Phone: [phone] Work Phone: [address] Work Phone: [address] [facility] Work Phone: [address] [facility] Work Phone: [address] [facility] Work Phone: [phone] [facility] Work Phone: [phone] [facility] [address] Work Phone: [address] [facility] [address] Work Phone: [address] [facility] [address] Work Phone: Provider Note - ED v2on 06-0 Provider Note - ED v2 Provider Note - ED v2: Chart Review: ED NOTES ED NOTES: Chief Complaint: chest pain HPI: 50-year-old male with a past medical history of hypertension, hyperlipidemia, Covid (07/2020), PE (07/2020 not on anticoagulation), ascending aortic aneurysm (4.5 cm), renal artery stenosis, bipolar disorder who present to the ED with chief complaint of chest pain. Patient states he was waiting for the bus when people around him were smoking. He states that he can smell some smoke and this causes him to be sensitive. He states that he had a light cough and then noticed some chest pain on the right side. He states it is worse with inspiration. Rates the pain is moderate, nonradiating. Otherwise, denies fever, chills, headache, shortness of breath, nausea, vomiting, diarrhea, abdominal pain, weakness/numbness in the upper or lower extremities. A 12-point review of systems was performed and was otherwise negative. Past Medical History: Per HPI Medications: Reviewed in EMR and with patient Allergies: Cipro, erythromycin Family History: Reviewed per records Past Surgical History: Hemorrhoidectomy Social History: Occasional etoh. No tobacco or drug use. Physical Exam: --Vital signs reviewed in nursing triage note, EMR flow sheets, and at patient's bedside GEN: A&Ox3, no acute distress, appears comfortable. Conversational and appropriate. No confusion or gross mental status changes. EYES: EOMI, non-injected sclera. ENT: Moist mucous membranes, no apparent injuries or lesions. CARDIO: Normal rate and regular rhythm. No murmurs, rubs, or gallops. 2+ equal pulses of the distal extremities. PULM: Clear to auscultation bilaterally. No rales, rhonchi, or wheezes. Good symmetric chest expansion. GI: Soft, non-tender, non-distended. No rebound tenderness or guarding. SKIN: Warm and dry, no rashes or lesions. MSK: ROM intact the extremities without contractures. EXT: No peripheral edema, contusions, or wounds. NEURO: Cranial nerves II-XII grossly intact. Sensation to light touch intact and equal bilaterally in upper and lower extremities. Symmetric 5/5 strength in upper and lower extremities. PSYCH: Appropriate mood and behavior, converses and responds appropriately during exam. EKG: -Ventricular rate of 64 bpm. Normal sinus rhythm. Normal axis. Normal intervals. No ST or T wave elevations or inversions consistent with ischemia. No change from prior EKGs. Hospital course: Patient was seen and evaluated by the attending physician. On presentation to the emergency department, the patient was in stable condition with vital signs unremarkable. Clinically is well-appearing, awake, alert. Patient's chart was reviewed which reveals numerous emergency department visits for the same complaints over the past few weeks. Within the past few days between the [facility] and [facility] the patient is been seen 5 times. Previous work-ups and results were reviewed. EKG is performed and is unchanged and unremarkable. CXR shows no acute cardiopulmonary process. Low concern for aneurysmal etiology, low concern for PE as vitals are normal. No indication for further work-up given the patient's recent numerous work-ups and multiple different emergency departments across the system. Patient stable be discharged, is given resources to follow-up with a primary care physician. Discharged in stable condition. Diagnosis: 1. chest pain 2. MSK pain Disposition: Home Bal Lomax MD HISTORY OF PRESENTING ILLNESS HOSEA is a 50 year old Male and was seen by me at 28-Feb-2021 10:48. Triage Information: Most recent Vital Sign Value Date PAST MEDICAL HISTORY ATTESTATION: I have reviewed and confirmed nurse's/medic's notes for patient's medications, allergies, and medical, surgical, family and social history ALLERGIES/INTOLERANCES: Allergy Allergen: Erythromycin Base Type: Drug Reaction: Unknown Allergen: caffine Type: Food Reaction: Other Allergen: Cipro Type: Drug Reaction: Unknown Intolerance Allergen: polyethylene glycol 3350 Type: Drug Reaction: GI Upset HEALTH HISTORY: Family History Name:No family history of cancer Code:Z78.9 Name:No family history of coronary artery disease Code:Z78.9 Medical History Name:Chest pain Code:R07.9 Name:Renal artery stenosis Code:I70.1 Name:Pulmonary embolism Code:I26.99 Name:History of COVID-19 Code:Z86.16 Name:Ascending aortic aneurysm Code:I71.2 Name:Bipolar disorder Code:F31.9 Name:Palpitations Code:R00.2 Social History Name:Homeless Code:Z59.0 Name:Does not use illicit drugs Code:Z78.9 Name:Consumes alcohol occasionally Code:Z78.9 Name:Former smoker Code:Z87.891 OUTPATIENT MEDICATI (more content not included)... Normal [facility] Radiologyon 02-28-2021 XR Chest Single view Normal MG-G astroente [facility] Work Phone: Triage - EDon 02-28-2021 Triage - ED Chart Review: ARRIVAL INFORMATION Mode of Arrival: private vehicle CHIEF COMPLAINT HOSEA ALVAREZ is a Male patient with a chief complaint of chest pain (right side chest pain after coughing). Triage Date/Time: 28-Feb-2021 10:56 WILMAN: 2 Pain Rating (0-10): 5 = Moderate Pain location: right chest Vital Signs: Temperature: 97.1F ( 36.2C) taken forehead Blood Pressure: 134/82 Mean: Heart Rate: 64 Respiratory Rate: 17 Pulse Oximetry: 98% on room air, no respiratory support. Height: 5 feet 8 inches. 172.7 CM Weight: 174.1 pounds. Calculated 79.0 kg. (stated) Calculated BMI (kg/m2): 26.487 Calculated BSA (m2) 1.95 [place] Coma Scale: Best Eye Response: (E4) spontaneous Best Motor Response: (M6) obeys commands Best Verbal Response: (V5) oriented [place] Score: 15 Patient has homicidal thoughts: no Symptoms Are POSITIVE For: dyspnea Symptoms Are Negative For: anxiety, chills, diaphoresis, headache, loss of consciousness, nausea, numbness, pain, tingling and weakness Risk Screens Suicide Risk Screen In the Past Month: Have you wished you were or wished you could go to sleep and not wake up no In the Past Month: Have you had any actual thoughts of killing yourself no In Your Lifetime: Have you ever done anything, started to do anything, or prepared to do anything to end your life no Molina Fall Scale Screening Has the patient fallen before (or is the patient in the ED as a result of a fall) has not had a fall Does the patient have an impaired gait does not have impaired gait Is the patient cognitively impaired not cognitively impaired Interventions: Molina Fall Interventions: LOW INTERVENTIONS: *patient oriented to surroundings and call system, * patient/family falls education completed and documented, *patients fall status communicated during bedside handoff, *whiteboard updated, *mode of toileting discussed with patient, *bed in low position with brakes locked, *call light in reach, * non-skid footwear TRAVEL HISTORY Travel History Coronavirus Screening: no exposure or symptoms Travel Exposure History: NO travel to International locations in the past 30 days PAIN Pain Scale Used: SHANNON Pain Rating (0-10): 5 = Moderate Past Medical History: Past Medical History Reviewedno Electronic Signatures: Josh Morfin (RN) (Signed 28-Feb-2021 10:57) Authored: Quick Triage, Risk Screens, Pain, Travel History, Chart Review, Scores, Past Medical History Last Updated: 28-Feb-2021 10:57 by Josh Morfin (RN) Normal [facility] BASIC METABOLIC PANELon 06-0 Anion gap [Moles/Vol] 12 mmol/L Normal 10 - 20 [facility] Comment on above: Performed By: #### B MP ####[facility] [facility] [address] Calcium [Mass/Vol] 9.1 mg/dL Normal 8.6 - 10.3 [facility] Comment on above: Performed By: #### B MP ####[facility] [facility] [address] Chloride [Moles/Vol] 102 mmol/L Normal 98 - 107 [facility] Comment on above: Performed By: #### B MP ####[facility] [place] [address] Creatinine [Mass/Vol] 0.87 mg/dL Normal 0.50 - 1.30 [facility] Comment on above: Performed By: #### B MP ####[facility] [place] [address] GFR- AM. >60 Normal >60 [facility] Comment on above: Result Comment: CALC ULATIONS OF ESTIMATED GFR ARE PERFORMED USING THE MDRD STUDY EQUATION FOR THE IDMS-TRACEABLE CREATININE METHODS. CLIN CHEM 2007;53:766-72 Performed By: #### B MP ####[facility] [place] [address] GFR-NON AM. >60 Normal >60 [facility] Comment on above: Performed By: #### B MP ####[facility] [place] [address] Glucose [Mass/Vol] 147 mg/dL High 74 - 99 [facility] Comment on above: Performed By: #### B MP ####[facility] [facility] [place] [address] HCO3 (Bld) [Moles/Vol] 26 mmol/L Normal 21 - 32 [facility] Comment on above: Performed By: #### B MP ####[facility] [place] [address] Potassium [Moles/Vol] 4.0 mmol/L Normal 3.5 - 5.3 [facility] Comment on above: Performed By: #### B MP ####[facility] [place] [address] Sodium [Moles/Vol] 136 mmol/L Normal 136 - 145 [facility] Comment on above: Performed By: #### B MP ####[facility] [facility] [place] [address] Urea nitrogen [Mass/Vol] 14 mg/dL Normal 6 - 23 [facility] Comment on above: Performed By: #### B MP ####[facility] [place] [address] CBC AND DIFFERENTIALon 02-27 % AUTOMATED IMMATURE GRAN 0.4 % Normal 0.0 - 0.9 [facility] Comment on above: Result Comment: Kath ture Granulocyte Count (IG) includes promyelocytes, myelocytes and metamyelocytes but does not include bands. Percent differential counts (%) should be interpreted in the context of the absolute cell counts (cells/L). Performed By: #### C BCDF ####[facility] [place] [address] Basophils (Bld) [#/Vol] 0.01 10*3/uL Normal 0.00 - 0.10 [facility] Comment on above: Performed By: #### C BCDF ####[facility] [place] [address] Basophils/100 WBC (Bld) 0.2 % Normal 0.0 - 2.0 [facility] Comment on above: Performed By: #### C BCDF ####[facility] [place] [address] Erythrocyte distribution width (RBC) [Ratio] 12.8 % Normal 11.5 - 14.5 [facility] Comment on above: Performed By: #### C BCDF ####[facility] [place] [address] Hematocrit (Bld) [Volume fraction] 38.5 % Low 41.0 - 52.0 [facility] Comment on above: Performed By: #### C BCDF ####[facility] [place] [address] Hemoglobin (Bld) [Mass/Vol] 12.9 g/dL Low 13.5 - 17.5 [facility] Comment on above: Performed By: #### C BCDF ####[facility] [place] [address] Lymphocytes (Bld) [#/Vol] 0.37 10*3/uL Low 1.20 - 4.80 [facility] Comment on above: Performed By: #### C BCDF ####[facility] [place] [address] Lymphocytes/100 WBC (Bld) 6.8 % Normal 13.0 - 44.0 [facility] Comment on above: Performed By: #### C BCDF ####[facility] [place] [address] MCHC (RBC) [Mass/Vol] 33.5 g/dL Normal 32.0 - 36.0 [facility] Comment on above: Performed By: #### C BCDF ####[facility] [place] [address] MCV (RBC) [Entitic vol] 86 fL Normal 80 - 100 [facility] Comment on above: Performed By: #### C BCDF ####[facility] [place] [address] Monocytes (Bld) [#/Vol] 0.04 10*3/uL Low 0.10 - 1.00 [facility] Comment on above: Performed By: #### C BCDF ####[facility] [place] [address] Monocytes/100 WBC (Bld) 0.7 % Normal 2.0 - 10.0 [facility] Comment on above: Performed By: #### C BCDF ####[facility] [place] [address] Neutrophils (Bld) [#/Vol] 5.00 10*3/uL Normal 1.20 - 7.70 [facility] Comment on above: Performed By: #### C BCDF ####[facility] [place] [address] Neutrophils/100 WBC (Bld) 91.9 % Normal 40.0 - 80.0 [facility] Comment on above: Performed By: #### C BCDF ####[facility] [place] [address] Platelets (Bld) [#/Vol] 174 10*3/uL Normal 150 - 450 [facility] Comment on above: Performed By: #### C BCDF ####[facility] [place] [address] RBC 4.50 x10E12/L Normal 4.50 - 5.90 [facility] Comment on above: Performed By: #### C BCDF ####[facility] [place] [address] WBC (Bld) [#/Vol] 5.4 10*3/uL Normal 4.4 - 11.3 [facility] Comment on above: Performed By: #### C BCDF ####[facility] [place] [address] CHEST 1 VIEWon 02-27-2021 CHEST 1 VIEW Patient Name: HOSEA ALVAREZ STUDY: CHEST 1 VIEW; 02/27/2021 7:46 am INDICATION: Chest Pain. COMPARISON: 02/23/2021 ACCESSION NUMBER(S): [id number] ORDERING CLINICIAN: HERMES SEXTON FINDINGS: AP portable view of the chest is obtained. Limited exam due to portable nature. Magnified cardiac silhouette. No infiltrates, effusions or pneumothorax. IMPRESSION: 1. No evidence of acute cardiopulmonary process. Electronically signed by: CLOVIS VILLANUEVA MD [facility] Complete Blood Count + Diffe ubaldo 02-27-2021 Basophils/100 WBC (Bld) 0.2 % 0.0 - 2.0 [facility] Work Phone: Erythrocyte distribution width (RBC) [Ratio] 12.8 % See Below [facility] Work Phone: Comment on above: Reference Range: 11. 5 - 14.5 Hematocrit (Bld) [Volume fraction] 38.5 % below low threshold See Below [facility] Work Phone: Comment on above: Reference Range: 41. 0 - 52.0 Hemoglobin (Bld) [Mass/Vol] 12.9 g/dL below low threshold See Below [facility] Work Phone: Comment on above: Reference Range: 13. 5 - 17.5 Lymphocytes/100 WBC (Bld) 6.8 % See Below [facility] Work Phone: Comment on above: Reference Range: 13. 0 - 44.0 MCHC (RBC) [Mass/Vol] 33.5 g/dL See Below [facility] Work Phone: Comment on above: Reference Range: 32. 0 - 36.0 MCV (RBC) [Entitic vol] 86 fL 80 - 100 [facility] Work Phone: Monocytes/100 WBC (Bld) 0.7 % 2.0 - 10.0 [facility] Work Phone: Neutrophils/100 WBC (Bld) 91.9 % See Below MG-Gastroente rology-Chagri [facility] Work Phone: Comment on above: Reference Range: 40. 0 - 80.0 Platelets (Bld) [#/Vol] 174 10*3/uL 150 - 450 [facility] Work Phone: RBC (Bld) [#/Vol] 4.50 {x10E12/L} See Below [facility] -Gastroente rology-[facility] Work Phone: Comment on above: Reference Range: 4.5 0 - 5.90 WBC (Bld) [#/Vol] 5.4 10*3/uL 4.4 - 11.3 [facility] Work Phone: [phone] Complete Blood Count + Differential 0.01 {x10E9/L} See Below [facility] Work Phone: Comment on above: Reference Range: 0.0 0 - 0.10 Complete Blood Count + Differential 0.04 {x10E9/L} below low threshold See Below [facility]-Gastroente rology-[facility] Work Phone: Comment on above: Reference Range: 0.1 0 - 1.00 Complete Blood Count + Differential 0.37 {x10E9/L} below low threshold See Below [facility]-Gastroente rology-[facility] Work Phone: Comment on above: Reference Range: 1.2 0 - 4.80 Complete Blood Count + Differential 5.00 {x10E9/L} See Below [facility] Work Phone: Comment on above: Reference Range: 1.2 0 - 7.70 Complete Blood Count + Differential 0.4 % 0.0 - 0.9 [facility]-Gastroente [facility]log[facility] Work Phone: Comment on above: Immature Granulocyte Count (IG) includes promyelocytes, myelocytes and metamyelocytes but does not include bands. Percent differential counts (%) should be interpreted in the context of the absolute cell counts (cells/L). Laboratory - Chemistry and C hemistry - challengeon 02-27-2021 Anion gap [Moles/Vol] 12 mmol/L 10 - 20 MG- Gastroente rology-Ch[facility] Work Phone: Calcium [Mass/Vol] 9.1 mg/dL 8.6 - 10.3 [facility] Work Phone: [phone] Chloride [Moles/Vol] 102 mmol/L 98 - 107 [facility] Work Phone: [phone] CO2 [Moles/Vol] 26 mmol/L 21 - 32 MG-Gastro ente rology-Ch[facility] Work Phone: Creatinine [Mass/Vol] 0.87 mg/dL See Below MG- Gastroente rology-[facility] Work Phone: [phone] Comment on above: Reference Range: 0.5 0 - 1.30 Glucose [Mass/Vol] 147 mg/dL above high threshold 74 - 99 [facility]-Gastroente rology-[facility] Work Phone: Potassium [Moles/Vol] 4.0 mmol/L 3.5 - 5.3 MG- Gastroente rology-Chag[facility] Work Phone: [phone] Sodium [Moles/Vol] 136 mmol/L 136 - 145 [facility] Work Phone: Urea nitrogen [Mass/Vol] 14 mg/dL 6 - 23 [facility] Work Phone: No Panel Informationon 02-27 EKG (Reference Range : not available) Ventricular Rate : 61 BPM Atrial Rate : 61 BPM P-R Interval : 182 ms QRS Duration : 114 ms Q-T Interval : 384 ms QTC Calculation(Bazett) : 386 ms Calculated P [place] : 28 degrees Calculated R [place] : -17 degrees Calculated T [place] : 0 degrees Diagnosis:Normal sinus rhythm Normal ECG When compared with ECG of 26-FEB-2021 17:56, No significant change was found Confirmed by Martin Shepard ([id number]) on 02/27/2021 1:54:01 PM See also the report from this date [facility] >60 >60 [facility] Work Phone: Comment on above: CALCULATIONS OF NIKOLE MATED GFR ARE PERFORMED USING THE MDRD STUDY EQUATION FOR THE IDMS-TRACEABLE CREATININE METHODS. CLIN CHEM 2007;53:766-72 [email or web address] e?[email or web address]&Da te=03-28-2021&Time=07%3a 19%3a24%3a00&TestType=EC G&Site=7&OutputType=PDF& Ext=PDF [email or web address] Work Phone: Normal sinus rhythm [facility] Work Phone: [phone] Normal [facility] Work Phone: [phone] 1 [facility] Work Phone: [phone] 1 [facility] Work Phone: [phone] [facility] [email or web address] Work Phone: [phone] [facility] [email or web address] Work Phone: [phone] 1 [facility] [email or web address] Work Phone: [phone] 1 [facility] [email or web address] Work Phone: [phone] 1 [facility] [email or web address] Work Phone: [phone] [facility] [email or web address] Work Phone: [phone] [facility] [email or web address] Work Phone: [phone] [facility] [email or web address] Work Phone: [phone] [email or web address] Work Phone: [phone] [facility] [email or web address] Work Phone: [phone] [facility] [email or web address] Work Phone: [phone] [facility] [email or web address] Work Phone: Provider Note - ED v2on 06-0 Provider Note - ED v2 Provider Note - ED v2: Chart Review: ED NOTES ED NOTES: History: This is a 50-year-old male presenting from he is homeless and called 911 by [facility] for chief complaint of chest pain. This patient has had multiple visits to multiple emergency departments for the same complaint including 2 visits to [facility] in the last 24 hours. It is extremely difficult to obtain a history from the patient, as he keeps interrupting me and telling me how he wants things to go here and what test he wants ordered. He states he has an upper endoscopy scheduled for later on this week on Saturday. He states that he would like a GI cocktail to help his pain and maybe some Toradol. All he can tell me that the pain is on the left side. He will not answer any other questions because he is worried he has not infective endocarditis and is bringing up information on his phone under [employer] about post Covid noninfective endocarditis. He did have Covid in September. Past Medical History Including but not limited to bipolar a sending aortic aneurysm pulmonary embolism Social Hx: denies smoking, alcohol, or street drugs. Family Hx: denies any pertinent family history. ROS: Review of systems is otherwise negative unless stated above or in history of present illness. Physical Exam Appearance: Alert, oriented , cooperative, in no acute distress. Well nourished & well hydrated. Skin: Intact, dry skin, no lesions, rash, petechiae or purpura. Eyes: PERRLA, EOMs intact, Conjunctiva pink with no redness or exudates. Eyelids without lesions. No scleral icterus. ENT: Hearing grossly intact. External auditory canals patent, tympanic membranes intact with visible landmarks. Nares patent, mucus membranes moist. Dentition without lesions. Pharynx clear, uvula midline. Neck: Supple, without meningismus. Thyroid not palpable. Trachea at midline. No lymphadenopathy. Pulmonary: Clear bilaterally with good chest wall excursion. No rales, rhonchi or wheezing. No accessory muscle use or stridor. Cardiac: Normal S1, S2 without murmur, rub, gallop or extrasystole. No JVD, Carotids without bruits. Abdomen: Soft, nontender, active bowel sounds. No palpable organomegaly. No rebound or guarding. No CVA tenderness. Genitourinary: Exam deferred. Musculoskeletal: Full range of motion. no pain, edema, or deformity. Pulses full and equal. No cyanosis, clubbing, or edema. Neurological: Patient will not cooperate for full examination. Medical Decision Making: Full cardiac workup is unremarkable. He is requesting a GI cocktail and toradol for pain. GI cocktail given, he is currently pain free. He has called me into the room multiple times, asking me what my work schedule is like because he wants to be admitted but he cannot be admitted today due to [facility]. 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 I assured him I do not feel he has this at this time. He is adamently refusing to leave and want to call the [facility] and his insurance to see what he can do. He was given a couple hours to do this. He now wants to be discharged and he said he will camp out in [facility] outside the fire station so when he does get the pain he can call 911 and hope that I am working. I discharged him home with close follow up. HISTORY OF PRESENTING ILLNESS HOSEA is a 50 year old Male and was seen by me at 27-Feb-2021 07:25 for a chief complaint of chest pain . Triage Information: Most recent Vital Sign Value Date Temp (F): 97.5 02-27-2021 07:24 Temp (C): 36.4 02-27-2021 07:24 Heart Rate (beats/min): 78 02-27-2021 07:24 Respirations (breaths/min): 16 02-27-2021 07:24 SpO2 (%): 96 02-27-2021 07:24 BP Systolic (mm Hg): 121 02-27-2021 07:24 BP Diastolic (mm Hg): 79 02-27-2021 07:24 PAST MEDICAL HISTORY ATTESTATION: I have reviewed and confirmed nurse's/medic's notes for patient's medications, allergies, and medical, surgical, family and social history ALLERGIES/INTOLERANCES: Allergy Allergen: Erythromycin Base Type: Drug Reaction: Unknown Allergen: caffine Type: Food Reaction: Other Allergen: Cipro Type: Drug Reaction: Unknown Intolerance Allergen: polyethylene glycol 3350 Type: Drug Reaction: GI Upset HEALTH HISTORY: Family History Name:No family history of cancer Code:Z78.9 Name:No family history of coronary artery disease Code:Z78.9 Medical History Name:Chest pain Code:R07.9 Name:Renal artery stenosis Code:I70.1 Name:Pulmonary embolism Code:I26.99 Name:History of COVID-19 Code:Z86.16 Name:Ascending aortic aneurysm Code:I71.2 Name:Bipolar disorder Code:F31.9 Name:Palpitations Code:R00.2 Social History Name:Homeless Code:Z59.0 Name:Does not use illicit drugs Code:Z78.9 Name:Consumes alcohol (more content not included)... Normal [facility] Radiologyon 02-27-2021 XR Chest Single view Normal MG-G [facility] Work Phone: TROPONIN Ion 02-27-2021 TROPONIN I Canceled Normal [facility] Comment on above: Order Comment: TEST TROPONIN I WAS CANCELLED, 02/27/2021 14:30 discharged. Result Comment: LESS THAN 0.04 NG/ML: NEGATIVE REPEAT TESTING IN THREE TO SIX HOURS IF CLINICALLY INDICATED. 0.04 - 0.5 NG/ML: CONSISTENT WITH POSSIBLE CARDIAC DAMAGE AND POSSIBLE INCREASED CLINICAL RISK. SERIAL MEASUREMENTS MAY HELP ASSESS EXTENT OF MYOCARDIAL DAMAGE. >0.5 NG/ML: CONSISTENT WITH CARDIAC DAMAGE, INCREASED CLINICAL RISK AND MYOCARDIAL INFARCTION. SERIAL MEASUREMENTS MAY HELP ASSESS EXTENT OF MYOCARDIAL DAMAGE. . Note: Troponin I testing is performed using different testing methodology at [facility] than at [facility]. Direct result comparisons should only be made within the same method. Performed By: #### T ROP2 #### [facility] [address] [place] [address] Troponin I.cardiac [Mass/Vol] ng/mL Normal 0.00 - 0.03 [facility] Comment on above: Result Comment: LESS THAN 0.04 NG/ML: NEGATIVE REPEAT TESTING IN THREE TO SIX HOURS IF CLINICALLY INDICATED. 0.04 - 0.5 NG/ML: CONSISTENT WITH POSSIBLE CARDIAC DAMAGE AND POSSIBLE INCREASED CLINICAL RISK. SERIAL MEASUREMENTS MAY HELP ASSESS EXTENT OF MYOCARDIAL DAMAGE. >0.5 NG/ML: CONSISTENT WITH CARDIAC DAMAGE, INCREASED CLINICAL RISK AND MYOCARDIAL INFARCTION. SERIAL MEASUREMENTS MAY HELP ASSESS EXTENT OF MYOCARDIAL DAMAGE. . Note: Troponin I testing is performed using different testing methodology at [facility] than at [facility]. Direct result comparisons should only be made within the same method. Performed By: #### T ROP2 #### [facility] [address] [place] [address] Triage - EDon 02-27-2021 Triage - ED Chart Review: TREATMENT PRIOR TO ARRIVAL Treatment Prior to Arrival: Prior to arrival in the Emergency Department HOSEA ALVAREZ had treatment conducted by EMS which included the following; see ambulance record. ARRIVAL INFORMATION Means of Arrival: stretcher Mode of Arrival: ambulance Agency Name: [facility] Arrival From: home Accompanied By: self CHIEF COMPLAINT HOSEA ALVAREZ is a Male patient with a chief complaint of chest pain. Onset of the Complaint: 21-Jan-2021 Triage Date/Time: 27-Feb-2021 07:24 WILMAN: 2 Pain Rating (0-10): 8 = Severe Vital Signs: Temperature: 97.5F ( 36.4C) taken temporal Blood Pressure: 121/79 Mean: Heart Rate: 78 Respiratory Rate: 16 Pulse Oximetry: 96% on room air, no respiratory support. Height: 5 feet 6 inches. 167.6 CM Weight: 186.0 pounds. Calculated 84.4 kg. (scale measurement) Calculated BMI (kg/m2): 30.046 Calculated BSA (m2) 1.98 [place] Coma Scale: Best Eye Response: (E4) spontaneous Best Motor Response: (M6) obeys commands Best Verbal Response: (V5) oriented [place] Score: 15 Patient has homicidal thoughts: no Chest Pain Location-Left: upper chest Chest Pain Radiation-Left: arm Risk Screens Suicide Risk Screen In the Past Month: Have you wished you were or wished you could go to sleep and not wake up no In the Past Month: Have you had any actual thoughts of killing yourself no In Your Lifetime: Have you ever done anything, started to do anything, or prepared to do anything to end your life no Molina Fall Scale Screening Has the patient fallen before (or is the patient in the ED as a result of a fall) has not had a fall Does the patient have an impaired gait does not have impaired gait Is the patient cognitively impaired not cognitively impaired Interventions: Molina Fall Interventions: LOW INTERVENTIONS: *patient oriented to surroundings and call system, * patient/family falls education completed and documented, *patients fall status communicated during bedside handoff, *whiteboard updated, *mode of toileting discussed with patient, *bed in low position with brakes locked, *call light in reach, * non-skid footwear TRAVEL HISTORY Travel History Coronavirus Screening: no exposure or symptoms Travel Exposure History: NO travel to International locations in the past 30 days PAIN Pain Scale Used: SHANNON Pain Rating (0-10): 8 = Severe Past Medical History: Past Medical History Reviewedno Electronic Signatures: Patrizia Vinson ([place]) (Signed 27-Feb-2021 07:26) Authored: Quick Triage, Risk Screens, Pain, Arrival, Pre-arrival, Travel History, Chart Review, Scores, Past Medical History Last Updated: 27-Feb-2021 07:26 by Patrizia Vinson ([place]NN) Normal [facility] Troponin I, Serumon 02-28-20 21 Troponin I.cardiac [Mass/Vol] ng/mL See Below [facility] Work Phone: Comment on above: Reference Range: 0.0 0 - 0.03LESS THAN 0.04 NG/ML: NEGATIVEREPEAT TESTING IN THREE TO SIX HOURSIF CLINICALLY INDICATED.0.04 - 0.5 NG/ML: CONSISTENT WITH POSSIBLECARDIAC DAMAGE AND POSSIBLE INCREASEDCLINICAL RISK.SERIAL MEASUREMENTS MAY HELP ASSESS EXTENT OFMYOCARDIAL DAMAGE.>0.5 NG/ML: CONSISTENT WITH CARDIAC DAMAGE,INCREASED CLINICAL RISK AND MYOCARDIALINFARCTION. SERIAL MEASUREMENTS MAY HELPASSESS EXTENT OF MYOCARDIAL DAMAGE..Note: Troponin I testing is performed using different testing methodology at [facility] than at other [facility]. Direct result comparisons should only be made within the same method. No Panel Informationon 02-26 XR Chest Portable (1view) (Reference Range: not available) *FINAL Date of Service: 02/26/2021 19:37 Adm #: [id number] Reading Dr:ANEUDY CRAIN Signoff Dr: ANEUDY CRAIN PROCEDURE: CHEST PORTABLE - IXR 0018 REASON FOR EXAM: chest congestion RESULT: PORTABLE CHEST: TIME EXAM COMPLETED FOR READIN02/26/2021 7:37 PM TIME EXAM OBTAINED ON FLOOR: 1929 hours COMPARISON: 02/19/2021 CLINICAL INFORMATION: Chest congestion today. FINDINGS: The cardiac size is indeterminate in view of the AP projection. No infiltrates or effusions are identified. IMPRESSION: No acute pathologic findings are identified. [id number] This report has been produced using speech recognition. Original Interpreting Physician: ANEUDY CRAIN M.D. Original Transcribed by/Date: PSCB Feb 26 2021 7:46P Original Electronically Signed by/Date: ANEUDY CRAIN M.D. Feb 26 2021 7:46P Addendum Interpreting Physician: Addendum Transcribed by/Date: NO ADDENDUM Addendum Electronically Signed by/Date: [facility] Chart Updateon 02-23-2021 Chart Update Message Date: 23 Feb 2021 11:08 AM EST, Recorded By: Antonia Cuenca Calling For: Antonia Cuenca Patient presented to the office, he asked me what are the symptoms of a blood clot in your lung? I explained, unexplained SOB, chest pain that gets worse with a deep breath, fast heart rate and lightheadedness/fainting . Hosea explained that he is having severe pain / burning in his right upper chest that goes into his back, this started about 1 hour ago. Hosea tells me that he stopped his Eliquis about 3 weeks ago to get a tooth pulled and has not restarted the medication. Hosea also tells me he has Calcification of his Valves and needs an Echo. I explained that Dr. Lawton address his request for an Echo, that he does not need one at this time. Hosea told me we need his records from [facility] in [place], [place]. I had patient sign a Record Release form. To [facility] for review. ----- Per vo Dr. Lawton - Patient should follow up with scheduled testing (24 hour HLT 02/21/21 [facility] Ex Stress MRI 03/14/21 [facility]) and follow up with us as scheduled on 03/23/[address]. [address] Lawton's reply/orders, patient did not agree with plan but he demonstrated a good understanding. Hosea told me he walking over to [facility] to get evaluated. I informed Dr. Lawton. ---ssd. Signatures Electronically signed by : Antonia Cuenca L.P.N.; Feb 23 2021 11:20AM EST (Author) Electronically signed by : Wally Lawton MD; Feb 23 2021 1:08PM EST (Author) Normal [facility] Complete Blood Count + Diffe ubaldo 02-23-2021 Basophils/100 WBC (Bld) 0.3 % 0.0 - 2.0 MG-Gastroente [facility]logy[facility] Work Phone: Erythrocyte distribution width (RBC) [Ratio] 12.6 % See Below [facility]astro[facility] Work Phone: Comment on above: Reference Range: 11. 5 - 14.5 Hematocrit (Bld) [Volume fraction] 36.6 % below low threshold See Below [facility]astro[facility] Work Phone: Comment on above: Reference Range: 41. 0 - 52.0 Hemoglobin (Bld) [Mass/Vol] 12.1 g/dL below low threshold See Below [facility]astroente [facility] Work Phone: Comment on above: Reference Range: 13. 5 - 17.5 Lymphocytes/100 WBC (Bld) 19.2 % See Below [facility] Work Phone: Comment on above: Reference Range: 13. 0 - 44.0 MCHC (RBC) [Mass/Vol] 33.1 g/dL See Below [facility] Work Phone: Comment on above: Reference Range: 32. 0 - 36.0 MCV (RBC) [Entitic vol] 85 fL 80 - [address] [facility] [facility] Work Phone: [phone] Monocytes/100 WBC (Bld) 7.9 % 2.0 - 10.0 [facility] Work Phone: [phone] Neutrophils/100 WBC (Bld) 71.7 % See Below -[facility] Work Phone: [phone] Comment on above: Reference Range: 40. 0 - 80.0 Platelets (Bld) [#/Vol] 135 10*3/uL below low threshold 150 - 450 [facility] Work Phone: [phone] RBC (Bld) [#/Vol] 4.31 {x10E12/L} below low threshold See Below -[facility] Work Phone: Comment on above: Reference Range: 4.5 0 - 5.90 WBC (Bld) [#/Vol] 3.2 10*3/uL below low threshold 4.4 - 11.3 [facility] [facility] Work Phone: Complete Blood Count + Differential 0.01 {x10E9/L} See Below [facility] Work Phone: Comment on above: Reference Range: 0.0 0 - 0.10 Complete Blood Count + Differential 0.02 {x10E9/L} See Below [facility] Work Phone: Comment on above: Reference Range: 0.0 0 - 0.70 Complete Blood Count + Differential 0.25 {x10E9/L} See Below [facility] Work Phone: Comment on above: Reference Range: 0.1 0 - 1.00 Complete Blood Count + Differential 0.61 {x10E9/L} below low threshold See Below [facility] Work Phone: Comment on above: Reference Range: 1.2 0 - 4.80 Complete Blood Count + Differential 2.27 {x10E9/L} See Below [facility] Work Phone: Comment on above: Reference Range: 1.2 0 - 7.70 Complete Blood Count + Differential 0.6 % 0.0 - 6.0 [facility] Work Phone: Complete Blood Count + Differential 0.3 % 0.0 - 0.9 [facility] Work Phone: Comment on above: Immature Granulocyte Count (IG) includes promyelocytes, myelocytes and metamyelocytes but does not include bands. Percent differential counts (%) should be interpreted in the context of the absolute cell counts (cells/L). Complete Blood Count + Differential 0.0 {/100_WBC} 0.0 - 0.0 [facility] Work Phone: Coronavirus 2019 RNA by PCR, Symptomaticon 02-23-2021 Date and time of symptom onset [id number] [facility] Work Phone: Coronavirus 2019 RNA by PCR, Symptomatic Not detected Normal See Below MG-Gastroent e rology[facility] Work Phone: Comment on above: SOURCE: Nasal, Nasop haryngealReference Range: Not Detected.This assay is designed to detect the RdRp gene of SARS-CoV-2 via nucleic acid amplification. A Not Detected result does not preclude COVID-19 infection since the adequacy of sample collection and/or low viral burden may result in presence of viral nucleic acids below the clinical sensitivity of this test method. Fact sheet for providers: www.fda.gov/media/628436/downloadFact sheet for patients: www.Scicasts.gov/HealthUnlocked/189922/downloadThis test has received FDA Emergency Use Authorization (EUA) and has been verified by [facility]. This test is only authorized for the duration of time that circumstances exist to justify the authorization of the emergency use of in vitro diagnostic tests for the detection of SARS-CoV-2 virus and/or diagnosis of COVID-19 infection under section 564(b)(1) of the Act, 21 U.S.C. 360bbb-3(b)(1), unless the authorization is terminated or revoked sooner. [facility] is certified under CLIA-88 as qualified to perform high complexity testing. Testing is performed in the [facility] laboratory located at [address] [place] [address]. Laboratory - Chemistry and C hemistry - challengeon 02-23-2021 Albumin BCP dye [Mass/Vol] 4.1 g/dL 3.4 - 5.0 [facility] Work Phone: ALP [Catalytic activity/Vol] 48 U/L 33 - 120 [facility] Work Phone: ALT With P-5'-P [Catalytic activity/Vol] 15 U/L 10 - 52 [facility] Work Phone: Comment on above: Patients treated wit h Sulfasalazine may generate falsely decreased results for ALT. Anion gap [Moles/Vol] 14 mmol/L 10 - 20 [facility] Work Phone: [phone] AST With P-5'-P [Catalytic activity/Vol] 13 U/L 9 - 39 [facility] Work Phone: [phone] Bilirubin [Mass/Vol] 0.6 mg/dL 0.0 - 1.2 [facility]G [facility] Work Phone: [phone] Calcium [Mass/Vol] 8.9 mg/dL 8.6 - 10.3 MG-Gas troente [facility] Work Phone: [phone] Chloride [Moles/Vol] 104 mmol/L 98 - 107 [facility] Work Phone: [phone] CO2 [Moles/Vol] 24 mmol/L 21 - 32 [facility] Work Phone: [phone] Creatinine [Mass/Vol] 0.85 mg/dL See Below [facility] Work Phone: [phone] Comment on above: Reference Range: 0.5 0 - 1.30 Glucose [Mass/Vol] 153 mg/dL above high threshold 74 - 99 MG-[facility]astroente [facility] Work Phone: [phone] Potassium [Moles/Vol] 4.0 mmol/L 3.5 - 5.3 MG- [facility]astroente [facility] Work Phone: [phone] Protein [Mass/Vol] 6.5 g/dL 6.4 - 8.2 [facility] Work Phone: [phone] Sodium [Moles/Vol] 138 mmol/L 136 - 145 MG-Gas troente [facility] Work Phone: Urea nitrogen [Mass/Vol] 11 mg/dL 6 - 23 [facility] Work Phone: Laboratory - Coagulationon 0 02-23-2021 INR Coag (PPP) [Relative time] 1.0 {INR} 0.9 - 1.1 [facility] Work Phone: PT Coag (PPP) [Time] 11.6 s See Below MG-G astroente [facility] Work Phone: Comment on above: Reference Range: 10. 1 - 13.3 No Panel Informationon 02-23 295 {ng/mL_FEU} < or = 500 MG-Gastro ente [facility] Work Phone: Comment on above: The VTE Exclusion D- Dimer assay is reported in ng/mL Fibrinogen Equivalent Units (FEU). Per manufacturers instructions for use, a value of less than 500 ng/mL (FEU) may help to exclude DVT or PE in outpatients when the assay is used with a clinical pretest probability assessment. (AE must utilize and document eCalc Wells Score Deep Vein Thrombosis Risk for DVT exclusion only; Emergency Department should utilize Guidelines for Emergency Department Use of the VTE Exclusion D-Dimer and Clinical Pretest probability assessment model for DVT or PE exclusion.) >60 >60 MG-Gastroente [facility] Work Phone: Comment on above: CALCULATIONS OF NIKOLE MATED GFR ARE PERFORMED USING THE MDRD STUDY EQUATION FOR THE IDMS-TRACEABLE CREATININE METHODS. CLIN CHEM 2007;53:766-72 http://UHMUSEPRDAIO0 1:80 80/musescripts/museweb.d ll?RetrieveTestByDateTim e?MzumuxdRT=[id number]&Da te=11-26-2020&Time=11%3a 50%3a51%3a00&TestType=EC G&Site=12&OutputType=PDF &Ext=PDF [facility] Work Phone: Normal sinus rhythm [facility] Work Phone: Normal [facility] Work Phone: [phone] [facility] Work Phone: [phone] [facility] Work Phone: [phone] [facility] Work Phone: [phone] [facility] Work Phone: [phone] [facility] Work Phone: [phone] [facility] Work Phone: [phone] [facility] Work Phone: [phone] [facility] Work Phone: [phone] [facility] Work Phone: [phone] [facility] Work Phone: [phone] [facility] Work Phone: [phone] [facility] Work Phone: [phone] [facility] Work Phone: [phone] [facility] Work Phone: Radiologyon 02-23-2021 XR Chest Single view Normal MG-G astroente [facility] Work Phone: Troponin I, Serumon 02-24-20 21 Troponin I.cardiac [Mass/Vol] ng/mL See Below [facility] Work Phone: Comment on above: Reference Range: 0.0 0 - 0.03LESS THAN 0.04 NG/ML: NEGATIVEREPEAT TESTING IN THREE TO SIX HOURSIF CLINICALLY INDICATED.0.04 - 0.5 NG/ML: CONSISTENT WITH POSSIBLECARDIAC DAMAGE AND POSSIBLE INCREASEDCLINICAL RISK.SERIAL MEASUREMENTS MAY HELP ASSESS EXTENT OFMYOCARDIAL DAMAGE.>0.5 NG/ML: CONSISTENT WITH CARDIAC DAMAGE,INCREASED CLINICAL RISK AND MYOCARDIALINFARCTION. SERIAL MEASUREMENTS MAY HELPASSESS EXTENT OF MYOCARDIAL DAMAGE..Note: Troponin I testing is performed using different testing methodology at [facility] than at other [facility]. Direct result comparisons should only be made within the same method. Complete Blood Count + Diffe rentialon 02-22-2021 Basophils/100 WBC (Bld) 0.6 % 0.0 - 2.0 [facility] Work Phone: Erythrocyte distribution width (RBC) [Ratio] 12.6 % See Below [facility] Work Phone: Comment on above: Reference Range: 11. 5 - 14.5 Hematocrit (Bld) [Volume fraction] 34.4 % below low threshold See Below [facility] Work Phone: Comment on above: Reference Range: 41. 0 - 52.0 Hemoglobin (Bld) [Mass/Vol] 11.3 g/dL below low threshold See Below [facility] Work Phone: Comment on above: Reference Range: 13. 5 - 17.5 Lymphocytes/100 WBC (Bld) 30.4 % See Below [facility] Work Phone: Comment on above: Reference Range: 13. 0 - 44.0 MCHC (RBC) [Mass/Vol] 32.8 g/dL See Below [facility] Work Phone: Comment on above: Reference Range: 32. 0 - 36.0 MCV (RBC) [Entitic vol] 88 fL 80 - 100 [facility] Work Phone: Monocytes/100 WBC (Bld) 8.8 % 2.0 - 10.0 [facility] [facility] [address] [facility] Work Phone: Neutrophils/100 WBC (Bld) 59.0 % See Below [facility] Work Phone: Comment on above: Reference Range: 40. 0 - 80.0 Platelets (Bld) [#/Vol] 128 10*3/uL below low threshold 150 - 450 [facility] Work Phone: RBC (Bld) [#/Vol] 3.90 {x10E12/L} below low threshold See Below -[facility] Work Phone: Comment on above: Reference Range: 4.5 0 - 5.90 WBC (Bld) [#/Vol] 3.2 10*3/uL below low threshold 4.4 - 11.3 [facility] [facility] Work Phone: [phone] Complete Blood Count + Differential 0.02 {x10E9/L} See Below [facility] Work Phone: Comment on above: Reference Range: 0.0 0 - 0.10 Complete Blood Count + Differential 0.03 {x10E9/L} See Below -[facility] Work Phone: Comment on above: Reference Range: 0.0 0 - 0.70 Complete Blood Count + Differential 0.28 {x10E9/L} See Below -[facility] Work Phone: Comment on above: Reference Range: 0.1 0 - 1.00 Complete Blood Count + Differential 0.97 {x10E9/L} below low threshold See Below [facility] Work Phone: Comment on above: Reference Range: 1.2 0 - 4.80 Complete Blood Count + Differential 1.88 {x10E9/L} See Below -[facility] Work Phone: Comment on above: Reference Range: 1.2 0 - 7.70 Complete Blood Count + Differential 0.9 % 0.0 - 6.0 [facility] Work Phone: Complete Blood Count + Differential 0.3 % 0.0 - 0.9 [facility] Work Phone: Comment on above: Immature Granulocyte Count (IG) includes promyelocytes, myelocytes and metamyelocytes but does not include bands. Percent differential counts (%) should be interpreted in the context of the absolute cell counts (cells/L). Complete Blood Count + Differential 0.0 {/100_WBC} 0.0-0.0 [facility] Work Phone: Initial Visit (Gastroenterol ogy)on 02-22-2021 Initial Visit (Gastroenterology) Diagnoses/Problems Assessed GERD (gastroesophageal reflux disease) (530.81) (K21.9) Constipation (564.00) (K59.00) Orders Constipation Start: Metamucil 28.3 % Oral Powder; mix one tablespoon in 8 ounces of water daily Rx By: Meagan Baugh; Dispense: 0 Days ; #:1 X 575 GM Bottle; Refill: 2;For: Constipation; JOSE = N; Verified Transmission to [id number]; Last Updated By: Corrine Root; 02/22/2021 3:49:47 PM Esophageal spasm Start: Dicyclomine HCl - 20 MG Oral Tablet; TAKE 1 TABLET EVERY 6 HOURS NEEDED Rx By: Meagan Baugh; Dispense: 10 Days ; #:40 Tablet; Refill: 0;For: Esophageal spasm; JOSE = N; Verified Transmission to [id number]; Last Updated By: iPositioning; 02/22/2021 3:16:56 PM GERD (gastroesophageal reflux disease) Start: Lidocaine Viscous HCl - 2 % Mouth/Throat Solution; take one teaspoon and swish and spit four times a day as needed Rx By: Meagan Baugh; Dispense: 0 Days ; #:100 Milliliter; Refill: 0;For: GERD (gastroesophageal reflux disease); JOSE = N; [id number]; Last Updated By: iPositioning; 02/22/2021 3:14:30 PM Endoscopy - Upper GI; Status:Hold For - Scheduling; Requested for:22Feb2021; Perform:[facility] Endoscopy; Due:[id number];Ordered; For:GERD (gastroesophageal reflux disease); Ordered By:Meagan Baugh; Requires Admission? : No Prophylaxis Required? : No Patient competent to provide consent? : Yes-pt mentally competent to provide consent Pre-existing Conditions : Other Sedation Type : Moderate (Routine) Start: Melatonin 10 MG Oral Capsule; take one tablet at bedtime as needed Rx By: Meagan Baugh; Dispense: 0 Days ; #:30 Capsule; Refill: 5;For: GERD (gastroesophageal reflux disease); JOSE = N; [id number]; Last Updated By: iPositioning; 02/22/2021 3:18:52 PM Start: Omeprazole 40 MG Oral Capsule Delayed Release; Take one capsule once a day Rx By: Meagan Baugh; Dispense: 0 Days ; #:30 Capsule; Refill: 11;For: GERD (gastroesophageal reflux disease); JOSE = N; [facility]; Last Updated By: iPositioning; 02/22/2021 3:49:45 PM Patient Discussion/Summary Thank you for coming in today for an evaluation. I do see from your multiple ED visits that you have a big concern for your symptom of difficulty of swallowing solids that you have an esophageal cancer. Given your stable weight, I am not too concerned with cancer, but do think it will be worthwhile to examine you with an upper endoscopy. A common cause of this symptom can be Gastroesophageal reflux disease (GERD) which occurs when stomach acid frequently flows back into the esophagus. This backwash (acid reflux) can irritate the lining of your esophagus. Frequent heartburn is the most common symptom, but many people have other symptoms. I would like to increase your Omeprazole dose. Please try a fiber supplement to see if this helps your bowels as well. PLAN: 1) Increase Omeprazole to 40 mg daily 2) we will request an Upper Endoscopy at [facility] 3).Avoid foods known to trigger your symptoms such as caffeine you have identified- certain foods trigger more acid to be produced in the stomach 4).Avoid foods that cause the muscle ring between the esophagus and stomach to relax more, and therefore allow more reflux. These foods include chocolate, peppermint, coffee and alcohol. 5)Losing weight helps to decrease the upward pressure on the stomach 6) add the fiber supplement Psyllium (Metamucil) one heaping tablespoon in 8 ounces of fluid daily. Start with one teaspoon a day for one week, then increase to two teaspoons a day for one week, then increase to one tablespoon daily. This is a soluble fiber, meaning it becomes gelatinous in water. 7) follow up with the Daniella extension agent you are scheduled to meet with next week for some of your food insecurity 8) follow up appointment ([phone] option 1 -[facility]) to be determined by Endosocopy results 9) Please call the office at [phone] with any questions or concerns. Provider Impressions 50 y/o man w/ PMHx HTN, Ascending Aortic Aneurysm, ELIANA, Hyperlipidemia, ? Bipolar, PTSD, P.E. 07/2020, Covid -19 07/2020 for complaint of difficulty swallowing with associated chest discomfort. Of note, [facility], he has had at least 30 local ED visits since January 26, 2021 with all but 5 of those being related to a chest complaint. He has been seen at [facility], [facility], and [facility] In the [facility] system, he has been seen at their main campus, [place], [facility], and [place]. Additionally in that timeframe he has been seen at [facility], [facility], Pending sale to [facility], and the [facility]. He has undergone at least 3 CTAs Chest, 3 CTA Abdomen/Pelvis, 3 CT chest and one CT Abdomen/Pelvis in that timeframe (27 days) with no significant finding other than an ascending (more content not included)... [facility] Laboratory - Chemistry and C hemistry - challengeon 02-22-2021 Albumin BCP dye [Mass/Vol] 3.8 g/dL 3.4 - 5.0 MG-Gastroente [facility] hospitalyMer[facility] Center[facility] Work Phone: ALP [Catalytic activity/Vol] 51 U/L 33 - 120 MG-[facility] [facility] [address] [facility] Work Phone: ALT With P-5'-P [Catalytic activity/Vol] 14 U/L 10 - 52 [facility] Work Phone: Comment on above: Patients treated wit h Sulfasalazine may generate falsely decreased results for ALT. Anion gap [Moles/Vol] 10 mmol/L 10 - 20 MG- [facility]ast[facility]ercy [facility] Work Phone: AST With P-5'-P [Catalytic activity/Vol] 12 U/L 9 - 39 [facility] Work Phone: Bilirubin [Mass/Vol] 0.3 mg/dL 0.0 - 1.2 MG-[facility] Work Phone: Calcium [Mass/Vol] 8.8 mg/dL 8.6 - 10.6 MG-Gas [facility]Beck[facility] Work Phone: Chloride [Moles/Vol] 103 mmol/L 98 - 107 MG-G [facility]entAlt[facility] Work Phone: CO2 [Moles/Vol] 30 mmol/L 21 - 32 [facility] Work Phone: Creatinine [Mass/Vol] 1.01 mg/dL See Below - Gastromercy [facility] hospitalyMer[facility] Medical Centerri [facility] Work Phone: Comment on above: Reference Range: 0.5 0 - 1.30 Glucose [Mass/Vol] 79 mg/dL 74 - 99 MG-Gas [facility] Work Phone: Potassium [Moles/Vol] 3.7 mmol/L 3.5 - 5.3 MG- [facility]astromercy [facility] hospitalyMer[facility] Centerri [facility] Work Phone: Protein [Mass/Vol] 6.1 g/dL below low threshold 6.4 - 8.2 [facility] Work Phone: Sodium [Moles/Vol] 139 mmol/L 136 - 145 [facility] Work Phone: Urea nitrogen [Mass/Vol] 13 mg/dL 6 - 23 MG-[facility] Work Phone: No Panel Informationon 02-22 >60 >60 MG-[facility] Work Phone: Comment on above: CALCULATIONS OF NIKOLE MATED GFR ARE PERFORMED USING THE MDRD STUDY EQUATION FOR THE IDMS-TRACEABLE CREATININE METHODS. CLIN CHEM 2007;53:766-72 28 pg/mL 0 - 99 MG-Gastroente [facility] centerogyMer[facility] Centerri [facility] Work Phone: Comment on above: . <100 pg/mL - Heart failure [id number] pg/mL - Intermediate probability of acute heart. failure exacerbation. Correlate with clinical. context and patient history. >=300 pg/mL - Heart Failure likely. Correlate with clinical. context and patient history. Biotin interference may cause falsely decreased results. Patients taking a Biotin dose of up to 5 mg/day should refrain from taking Biotin for 24 hours before sample collection. Providers may contact their local laboratory for further information. Please click on the link to view the study images Normal MG-Gastroente rology-Chagri [facility] Work Phone: [phone] [email or web address] e?EwdnbjdVO=[id number]&Da te=10-29-2020&Time=18%3a 26%3a59%3a00&TestType=EC G&Site=1&OutputType=PDF& Ext=PDF MG-Gastroente rology-Chagri [facility] Work Phone: [phone] Please see ED Provid er Note for formal interpretation MG-[facility]ente [facility] Work Phone: [phone] Normal MG-Gastroente rology-Chagri [facility] Work Phone: [phone] MG-Gastroente rology-Chagri [facility] Work Phone: [phone] MG-Gastroente rology-Chagri [facility] Work Phone: [phone] MG-Gastroente rology-Chagri [facility] Work Phone: [phone] MG-Gastroente rology-Chagri [facility] Work Phone: [phone] MG-Gastroente rology-Chagri [facility] Work Phone: [phone] MG-Gastroente rology-Chagri [facility] Work Phone: [phone] MG-Gastroente rology-Chagri [facility] Work Phone: [phone] MG-Gastroente rology-Chagri [facility] Work Phone: [phone] MG-Gastroente rology-Chagri [facility] Work Phone: [phone] MG-Gastroente [facility] Work Phone: [phone] MG-Gastroente rology-Chagri [facility] Work Phone: 100 1 MG-[facility]astroente [facility] Work Phone: [phone] MG-Gastroente rology-Chagri [facility] Work Phone: [phone] MG-Gastroente [facility] Work Phone: Radiologyon 02-22-2021 XR Chest Single view Normal [facility]G [facility] Work Phone: Tobacco Screening.on 021 Fall risk assessment a) No falls within the last year MG-Gastroente [facility] Work Phone: Tobacco use status CPHS b) No MG-Gastroente [facility] Work Phone: Troponin I, Serumon 02-23-20 21 Troponin I.cardiac [Mass/Vol] ng/mL See Below MG-Gastroente [facility] centerogy-[facility] Work Phone: Comment on above: Reference Range: 0.0 0 - 0.03LESS THAN 0.04 NG/ML: NEGATIVEREPEAT TESTING IN THREE TO SIX HOURSIF CLINICALLY INDICATED.0.04 - 0.5 NG/ML: CONSISTENT WITH POSSIBLECARDIAC DAMAGE AND POSSIBLE INCREASEDCLINICAL RISK.SERIAL MEASUREMENTS MAY HELP ASSESS EXTENT OFMYOCARDIAL DAMAGE.>0.5 NG/ML: CONSISTENT WITH CARDIAC DAMAGE,INCREASED CLINICAL RISK AND MYOCARDIALINFARCTION. SERIAL MEASUREMENTS MAY HELPASSESS EXTENT OF MYOCARDIAL DAMAGE..Note: Troponin I testing is performed using different testing methodology at [facility] than at other [facility]. Direct result comparisons should only be made within the same method.. Biotin interference may cause falsely decreased results. Patients taking a Biotin dose of up to 5 mg/day should refrain from taking Biotin for 24 hours before sample collection. Providers may contact their laboratory for further information. Complete Blood Count + Diffe ubaldo 02-20-2021 Basophils/100 WBC (Bld) 0.2 % 0.0 - 2.0 [facility] Work Phone: [phone] Erythrocyte distribution width (RBC) [Ratio] 12.2 % See Below [facility] Work Phone: Comment on above: Reference Range: 11. 5 - 14.5 Hematocrit (Bld) [Volume fraction] 41.6 % See Below [facility] Work Phone: [phone] Comment on above: Reference Range: 41. 0 - 52.0 Hemoglobin (Bld) [Mass/Vol] 13.6 g/dL See Below [facility] Work Phone: Comment on above: Reference Range: 13. 5 - 17.5 Lymphocytes/100 WBC (Bld) 15.4 % See Below [facility] Work Phone: Comment on above: Reference Range: 13. 0 - 44.0 MCHC (RBC) [Mass/Vol] 32.7 g/dL See Below [facility] Work Phone: Comment on above: Reference Range: 32. 0 - 36.0 MCV (RBC) [Entitic vol] 88 fL 80 - 100 [facility] Work Phone: Monocytes/100 WBC (Bld) 4.3 % 2.0 - 10.0 [facility] Work Phone: Neutrophils/100 WBC (Bld) 79.9 % See Below MG-Gastroente [facility] center[facility]agri [facility] Work Phone: Comment on above: Reference Range: 40. 0 - 80.0 Platelets (Bld) [#/Vol] 150 10*3/uL 150 - 450 MG-Gastroente [facility] center[facility] Work Phone: RBC (Bld) [#/Vol] 4.72 {x10E12/L} See Below MG -Gastroente [facility] center[facility] Work Phone: Comment on above: Reference Range: 4.5 0 - 5.90 WBC (Bld) [#/Vol] 4.5 10*3/uL 4.4 - 11.3 MG-Gas troente [facility] centerogy-[facility] Work Phone: Complete Blood Count + Differential 0.01 {x10E9/L} See Below MG-Gastroente [facility] center[facility] Work Phone: Comment on above: Reference Range: 0.0 0 - 0.10 Complete Blood Count + Differential 0.00 {x10E9/L} See Below MG-Gastroente [facility] center[facility] Work Phone: Comment on above: Reference Range: 0.0 0 - 0.70 Complete Blood Count + Differential 0.19 {x10E9/L} See Below MG-Gastroente [facility] center[facility] Work Phone: Comment on above: Reference Range: 0.1 0 - 1.00 Complete Blood Count + Differential 0.69 {x10E9/L} below low threshold See Below MG-Gastroente [facility] center[facility] Work Phone: Comment on above: Reference Range: 1.2 0 - 4.80 Complete Blood Count + Differential 3.57 {x10E9/L} See Below MG-Gastroente rology-Chagri n [facility] Work Phone: Comment on above: Reference Range: 1.2 0 - 7.70 Complete Blood Count + Differential 0.0 % 0.0 - 6.0 -[facility] Work Phone: Complete Blood Count + Differential 0.2 % 0.0 - 0.9 [facility] Work Phone: Comment on above: Immature Granulocyte Count (IG) includes promyelocytes, myelocytes and metamyelocytes but does not include bands. Percent differential counts (%) should be interpreted in the context of the absolute cell counts (cells/L). Complete Blood Count + Differential 0.0 {/100_WBC} 0.0-0.0 [facility] Work Phone: Laboratory - Chemistry and C hemistry - challengeon 02-20-2021 Albumin BCP dye [Mass/Vol] 4.5 g/dL 3.4 - 5.0 [facility] Work Phone: ALP [Catalytic activity/Vol] 60 U/L 33 - 120 [facility] Work Phone: ALT With P-5'-P [Catalytic activity/Vol] 16 U/L 10 - 52 -[facility] Work Phone: Comment on above: Patients treated wit h Sulfasalazine may generate falsely decreased results for ALT. Anion gap [Moles/Vol] 12 mmol/L 10 - 20 - [facility] Work Phone: AST With P-5'-P [Catalytic activity/Vol] 14 U/L 9 - 39 MG-[facility] Work Phone: [phone] Bilirubin [Mass/Vol] 0.5 mg/dL 0.0 - 1.2 MG-G astroente [facility]ri [facility] Work Phone: [phone] Calcium [Mass/Vol] 9.5 mg/dL 8.6 - 10.6 MG-Gas troente rology-Chagri [facility] Work Phone: [phone] Chloride [Moles/Vol] 99 mmol/L 98 - 107 MG-G astroente [facility] Work Phone: [phone] CO2 [Moles/Vol] 28 mmol/L 21 - 32 MG-Gastro ente [facility] Work Phone: [phone] Creatinine [Mass/Vol] 0.87 mg/dL See Below MG- Gastroente [facility] Work Phone: [phone] Comment on above: Reference Range: 0.5 0 - 1.30 Glucose [Mass/Vol] 111 mg/dL above high threshold 74 - 99 MG-Gastroente [facility] Work Phone: [phone] Potassium [Moles/Vol] 3.9 mmol/L 3.5 - 5.3 MG- Gastroente [facility] Work Phone: [phone] Protein [Mass/Vol] 7.6 g/dL 6.4 - 8.2 MG-Gas troente rology-Chagri [facility] Work Phone: [phone] Sodium [Moles/Vol] 135 mmol/L below low threshold 136 - 145 MG-Gastroente rology-Chagri [facility] Work Phone: [phone] Urea nitrogen [Mass/Vol] 15 mg/dL 6 - 23 MG-Gastroente rology-Chagri [facility] Work Phone: [phone] Anion gap (Bld) [Moles/Vol] 12 mmol/L 10 - 25 [facility]ente [facility] Work Phone: Calcium.ionized (Bld) [Moles/Vol] 1.23 mmol/L See Below MG-Gastroente rology-Chagri [facility] Work Phone: Comment on above: Reference Range: 1.1 0 - 1.33 Carboxyhemoglobin (BldV) [Mass fraction] 0.5 % MG-Gastroente [facility] Work Phone: Comment on above: REF VALUESNONSMOKERS 0.5-1.5%SMOKERS 0.5-10.0% Chloride [Moles/Vol] 101 mmol/L 98 - 107 MG-G ast[facility]ente [facility] Work Phone: [phone] CO2 (BldV) [Partial pressure] 47 mm[Hg] 41 - 51 [facility]-Gastroente [facility] centerogy-[facility] Work Phone: [phone] Glucose [Mass/Vol] 125 mg/dL above high threshold 74 - 99 [facility]ente [facility] Work Phone: [phone] HCO3 (Bld) [Moles/Vol] 27.8 mmol/L above high threshold See Below MG-Gastroente [facility] Work Phone: [phone] Comment on above: Reference Range: 22. 0 - 26.0 Lactate [Moles/Vol] 1.1 mmol/L 0.4 - 2.0 MG-Ga stroente griffin hospitalyMercy Medical Centerri [facility] Work Phone: Methemoglobin (BldV) [Mass fraction] 0.8 % 0.0 - 1.5 [facility]astroente [facility] Work Phone: Oxygen (BldV) [Partial pressure] 15 mm[Hg] below low threshold 35 - 45 MG-[facility]astroente [facility]Tr[facility] Work Phone: pH (BldV) 7.38 [pH] See Below -[facility] Work Phone: Comment on above: Reference Range: 7.3 3 - 7.43 Potassium [Moles/Vol] 4.3 mmol/L 3.5 - 5.3 MG- Gastromercy [facility] Work Phone: Sodium [Moles/Vol] 136 mmol/L 136 - 145 -[facility] Work Phone: Laboratory - Hematology and Cell countson 02-20-2021 Hematocrit (Bld) [Volume fraction] 42.0 % See Below -[facility] Work Phone: Comment on above: Reference Range: 41. 0 - 52.0 Hemoglobin (Bld) [Mass/Vol] 14.3 g/dL See Below -[facility] Work Phone: Comment on above: Reference Range: 13. 5 - 17.5 Lipase, Serumon 02-20-2021 Lipase [Catalytic activity/Vol] 11 U/L 9 - 82 -[facility] Work Phone: Comment on above: Venipuncture immedia tely after or during the administration of Metamizole may lead to falsely low results. Testing should be performed immediately prior to Metamizole dosing. W-uwslms-r-benzoquinone imine (metabolite of Acetaminophen) will generate erroneously low results in samples for patients that have taken toxic doses of acetaminophen. Magnesium, Serumon Magnesium [Mass/Vol] 2.21 mg/dL See Below MG-G astroente [facility] Work Phone: Comment on above: Reference Range: 1.6 0 - 2.40 No Panel Informationon 02-20 [email or web address] e?ZuzuxfqWO=[id number]&Da te=20-02-2021&Time=11%3a 22%3a20%3a00&TestType=EC G&Site=1&OutputType=PDF& Ext=PDF MG-Gastroente rology-Chagri [facility] Work Phone: [phone] Please see ED Provid er Note for formal interpretation MG-Gastroente rology-Chagri [facility] Work Phone: [phone] Normal MG-Gastroente rology-Chagri [facility] Work Phone: [phone] MG-Gastroente rology-Chagri [facility] Work Phone: [phone] MG-Gastroente rology-Chagri [facility] Work Phone: [phone] MG-Gastroente rology-Chagri [facility] Work Phone: [phone] 1 MG-Gastroente rology-Chagri [facility] Work Phone: [phone] 1 MG-Gastroente rology-Chagri [facility] Work Phone: [phone] MG-Gastroente rology-Chagri [facility] Work Phone: [phone] MG-Gastroente rology-Chagri [facility] Work Phone: [phone] 1 MG-Gastroente rology-Chagri [facility] Work Phone: [phone] 1 MG-Gastroente rology-Chagri [facility] Work Phone: [phone] 1 MG-Gastroente rology-Chagri [facility] Work Phone: [phone] 1 MG-Gastroente rology-Chagri [facility] Work Phone: [phone] 1 MG-Gastroente rology-Chagri [facility] Work Phone: [phone] 1 MG-Gastroente rology-Chagri [facility] Work Phone: [phone] 1 MG-Gastroente rology-Chagri [facility] Work Phone: [phone] [email or web address]?RetrieveTestByDateTim e?RsnzoooGR=[id number]&Da te=20-02-2021&Time=10%3a 01%3a05%3a00&TestType=EC G&Site=1&OutputType=PDF& Ext=PDF MG-Gastroente rology-Chagri [facility] Work Phone: [phone] Please see ED Provid er Note for formal interpretation MG-Gastroente rology-Chagri [facility] Work Phone: [phone] Normal MG-Gastroente rology-Chagri [facility] Work Phone: [phone] MG-Gastroente rology-Chagri [facility] Work Phone: [phone] 1 MG-Gastroente rology-Chagri [facility] Work Phone: [phone] 1 MG-Gastroente rology-Chagri [facility] Work Phone: [phone] 1 MG-Gastroente rology-Chagri [facility] Work Phone: [phone] 1 MG-Gastroente rology-Chagri [facility] Work Phone: [phone] 1 MG-Gastroente rology-Chagri [facility] Work Phone: [phone] 1 MG-Gastroente rology-Chagri n [facility] Work Phone: -[phone] 1 MG-Gastroente rology-Chagri [facility] Work Phone: [phone] MG-Gastroente rology-Chagri [facility] Work Phone: [phone] MG-Gastroente rology-Chagri [facility] Work Phone: [phone] MG-Gastroente rology-Chagri [facility] Work Phone: 100 1 MG-Gastroente rology-Chagri [facility] Work Phone: [phone] MG-Gastroente rology-Chagri [facility] Work Phone: [phone] MG-Gastroente rology-Chagri [facility] Work Phone: Normal MG-Gastroente rology-Chagri [facility] Work Phone: >60 >60 MG-Gastroente rology-Chagri [facility] Work Phone: Comment on above: CALCULATIONS OF NIKOLE MATED GFR ARE PERFORMED USING THE MDRD STUDY EQUATION FOR THE IDMS-TRACEABLE CREATININE METHODS. CLIN CHEM 2007;53:766-72 14 pg/mL 0 - 99 MG-Gastroente rology-Chagri [facility] Work Phone: Comment on above: . <100 pg/mL - Heart failure [id number] pg/mL - Intermediate probability of acute heart. failure exacerbation. Correlate with clinical. context and patient history. >=300 pg/mL - Heart Failure likely. Correlate with clinical. context and patient history. Biotin interference may cause falsely decreased results. Patients taking a Biotin dose of up to 5 mg/day should refrain from taking Biotin for 24 hours before sample collection. Providers may contact their local laboratory for further information. [email or web address] e?LwgwevtZG=[id number]&Da te=20-02-2021&Time=07%3a 00%3a10%3a00&TestType=EC G&Site=1&OutputType=PDF& Ext=PDF MG-Gastroente rology-Chagri [facility] Work Phone: [phone] MG-Gastroente rology-Chagri [facility] Work Phone: [phone] MG-Gastroente rology-Chagri [facility] Work Phone: [phone] 1 MG-Gastroente rology-Chagri [facility] Work Phone: [phone] 1 MG-Gastroente rology-Chagri [facility] Work Phone: [phone] 1 MG-Gastroente rology-Chagri [facility] Work Phone: [phone] 1 MG-Gastroente rology-Chagri [facility] Work Phone: [phone] MG-Gastroente rology-Chagri [facility] Work Phone: [phone] 1 MG-Gastroente rology-Chagri [facility] Work Phone: [phone] 1 MG-Gastroente rology-Chagri [facility] Work Phone: [phone] 1 MG-Gastroente rology-Chagri [facility] Work Phone: [phone] 1 MG-Gastroente rology-Chagri [facility] Work Phone: [phone] 1 MG-Gastroente rology-Chagri [facility] Work Phone: [phone] 2.0 mmol/L -2.0 - 3.0 MG-[facility] Work Phone: 26 % below low threshold 45 - 75 MG-Gastroarley griffin hospitaled-Khoari n [facility] Work Phone: [phone] {degrees_C} MG-Gastr elenitantkatelynn griffin hospitaledCH[facility] Work Phone: Comment on above: NOTE: PATIENT RESULT S ARE NOT CORRECTED FOR TEMPERATURE. Radiologyon 02-20-2021 XR Chest Single view Normal MG-G westleyoentkatelynn stewartLalitri [facility] Work Phone: Troponin I, Serumon 02-21-20 21 Troponin I.cardiac [Mass/Vol] ng/mL See Below MG-Gastroarley [facility]iffin hospitaledTr[facility] Work Phone: Comment on above: Reference Range: 0.0 0 - 0.03LESS THAN 0.04 NG/ML: NEGATIVEREPEAT TESTING IN THREE TO SIX HOURSIF CLINICALLY INDICATED.0.04 - 0.5 NG/ML: CONSISTENT WITH POSSIBLECARDIAC DAMAGE AND POSSIBLE INCREASEDCLINICAL RISK.SERIAL MEASUREMENTS MAY HELP ASSESS EXTENT OFMYOCARDIAL DAMAGE.>0.5 NG/ML: CONSISTENT WITH CARDIAC DAMAGE,INCREASED CLINICAL RISK AND MYOCARDIALINFARCTION. SERIAL MEASUREMENTS MAY HELPASSESS EXTENT OF MYOCARDIAL DAMAGE..Note: Troponin I testing is performed using different testing methodology at [facility] than at other [facility]. Direct result comparisons should only be made within the same method.. Biotin interference may cause falsely decreased results. Patients taking a Biotin dose of up to 5 mg/day should refrain from taking Biotin for 24 hours before sample collection. Providers may contact their laboratory for further information. Troponin I.cardiac [Mass/Vol] ng/mL See Below MG-Gastroarley griffin hospitaledMercy Medical Centerri [facility] Work Phone: Comment on above: Reference Range: 0.0 0 - 0.03LESS THAN 0.04 NG/ML: NEGATIVEREPEAT TESTING IN THREE TO SIX HOURSIF CLINICALLY INDICATED.0.04 - 0.5 NG/ML: CONSISTENT WITH POSSIBLECARDIAC DAMAGE AND POSSIBLE INCREASEDCLINICAL RISK.SERIAL MEASUREMENTS MAY HELP ASSESS EXTENT OFMYOCARDIAL DAMAGE.>0.5 NG/ML: CONSISTENT WITH CARDIAC DAMAGE,INCREASED CLINICAL RISK AND MYOCARDIALINFARCTION. SERIAL MEASUREMENTS MAY HELPASSESS EXTENT OF MYOCARDIAL DAMAGE..Note: Troponin I testing is performed using different testing methodology at [facility] than at other [facility]. Direct result comparisons should only be made within the same method.. Biotin interference may cause falsely decreased results. Patients taking a Biotin dose of up to 5 mg/day should refrain from taking Biotin for 24 hours before sample collection. Providers may contact their laboratory for further information. Laboratory - Chemistry and C hemistry - challengeon 02-19-2021 Troponin T.cardiac [Mass/Vol] HS Troponin T,Gen 5 6 NG/L (-<15 NG/L) LESS THAN Sex Specific Reference Range: Male (0-22), Female (0-14) Change(Delta) >=5 is significant Troponin Baseline and Serial elevation for significant change(delta)should be interpreted in conjunction with clinical presentation, history, signs and symptoms, ECG and biomarker concentrations. Troponin elevation can be seen in several other non-infarct conditions. Chronic troponin elevations can be detected in clinically stable patients with heart failure, cardiomyopathy, renal failure, diabetes, etc. Elevated troponin can also occur in myocarditis, heart contusion, PE, drug induced cardiotoxicity, etc. Samples should NOT be taken from patients receiving high dose biotin (> 5mg) doses until 8 hours following last biotin administration. [facility] No Panel Informationon 02-19 HS Troponin T Delta 1 (0-4 ) Performed at [address] [address] 0 - 4 [facility] XR Chest 2 Views (PA and lat) (Reference Range: not available) *FINAL Date of Service: 02/19/2021 01:18 Adm #: [id number] Reading Dr:SOHAIL MARINA Signoff : SOHAIL MARINA PROCEDURE: CHEST 2 VIEW - WXR 0020 REASON FOR EXAM: chest discomfort RESULT: Clinical Data: Chest discomfort. Number of films:Two-view radiographs of the chest were obtained . Comparison Study: 02/14/2021. The cardiac silhouette is normal in size. The mediastinum is unremarkable. The lungs are clear. There is no pneumothorax. No pleural effusions are seen. Degenerative changes involve the spine. Impression: No acute cardiopulmonary disease. [id number] This report has been produced using speech recognition. Original Interpreting Physician: SOHAIL MARINA M.D. Original Transcribed by/Date: [facility] Feb 19 2021 8:58A Original Electronically Signed by/Date: SOHAIL MARINA M.D. Feb 19 2021 8:58A Addendum Interpreting Physician: Addendum Transcribed by/Date: NO ADDENDUM Addendum Electronically Signed by/Date: [facility] CBC AND DIFFERENTIALon 02-18 % AUTOMATED IMMATURE GRAN 0.5 % Normal 0.0 - 0.9 [facility] Comment on above: Result Comment: Kath ture Granulocyte Count (IG) includes promyelocytes, myelocytes and metamyelocytes but does not include bands. Percent differential counts (%) should be interpreted in the context of the absolute cell counts (cells/L). Performed By: #### C BCDF ####[facility] [place], [place] [phone] Basophils (Bld) [#/Vol] 0.01 10*3/uL Normal 0.00 - 0.10 [facility] Comment on above: Performed By: #### C BCDF ####[facility] [place], [place] [phone] Basophils/100 WBC (Bld) 0.2 % Normal 0.0 - 2.0 [facility] Comment on above: Performed By: #### C BCDF ####[facility] [place], [place] [phone] Eosinophils (Bld) [#/Vol] 0.01 10*3/uL Normal 0.00 - 0.70 [facility] Comment on above: Performed By: #### C BCDF ####[facility] [place], [place] [phone] Eosinophils/100 WBC (Bld) 0.2 % Normal 0.0 - 6.0 [facility] Comment on above: Performed By: #### C BCDF ####[facility] [facility] [place], [place] [phone] Erythrocyte distribution width (RBC) [Ratio] 12.2 % Normal 11.5 - 14.5 [facility] Comment on above: Performed By: #### C BCDF ####[facility] [facility] [place], [place] [phone] Hematocrit (Bld) [Volume fraction] 37.1 % Low 41.0 - 52.0 [facility] Comment on above: Performed By: #### C BCDF ####[facility] [place] [address] [place], [place] [phone] Hemoglobin (Bld) [Mass/Vol] 12.5 g/dL Low 13.5 - 17.5 [facility] Comment on above: Performed By: #### C BCDF ####[address] [place], [place] [phone] Lymphocytes (Bld) [#/Vol] 1.21 10*3/uL Normal 1.20 - 4.80 [facility] Comment on above: Performed By: #### C BCDF ####[address] [place], [place] [phone] Lymphocytes/100 WBC (Bld) 20.2 % Normal 13.0 - 44.0 [facility] Comment on above: Performed By: #### C BCDF ####[address] [place], [place] [phone] MCHC (RBC) [Mass/Vol] 33.7 g/dL Normal 32.0 - 36.0 [facility] Comment on above: Performed By: #### C BCDF ####[place] [id number] [facility] [place], [place] [phone] MCV (RBC) [Entitic vol] 83 fL Normal 80 - 100 [facility] Comment on above: Performed By: #### C BCDF ####[facility] [place] [address] [place], [place] [phone] Monocytes (Bld) [#/Vol] 0.39 10*3/uL Normal 0.10 - 1.00 [facility] Comment on above: Performed By: #### C BCDF ####[facility] [facility] [place], [place] [phone] Monocytes/100 WBC (Bld) 6.5 % Normal 2.0 - 10.0 [facility] Comment on above: Performed By: #### C BCDF ####[facility] [place] [address], [place] [phone] Neutrophils (Bld) [#/Vol] 4.35 10*3/uL Normal 1.20 - 7.70 [facility] Comment on above: Performed By: #### C BCDF ####[facility] [facility] [place], [place] [phone] Neutrophils/100 WBC (Bld) 72.4 % Normal 40.0 - 80.0 [facility] Comment on above: Performed By: #### C BCDF ####[facility] [place] [address], [place] [phone] Platelets (Bld) [#/Vol] 153 10*3/uL Normal 150 - 450 [facility] Comment on above: Performed By: #### C BCDF ####[facility] [facility] [place], [place] [phone] RBC 4.47 x10E12/L Low 4.50 - 5.90 [facility] Comment on above: Performed By: #### C BCDF ####[facility] [facility] [place] [phone] WBC (Bld) [#/Vol] 6.0 10*3/uL Normal 4.4 - 11.3 [facility] Comment on above: Performed By: #### C BCDF ####[facility] [facility] [place], [place] [phone] CHEST 1 VIEWon 02-18-2021 CHEST 1 VIEW Patient Name: LINA HOSEA STUDY: CHEST 1 VIEW; ; 02/18/2021 4:48 pm INDICATION: trouble swallowing. COMPARISON: 02/09/2021 ACCESSION NUMBER(S): [id number] ORDERING CLINICIAN: KEITH ARECHIGA FINDINGS: Portable AP view of the chest obtained in the upright position at 1640 hours. The cardiomediastinal silhouette is normal size. There is no pulmonary consolidation or pneumothorax. No acute bony abnormality. IMPRESSION: Nothing suspicious for acute cardiopulmonary disease. Electronically signed by: MARIO ALBERTO FONSECA MD Normal [facility] COMPREHENSIVE PANELon 2020 Albumin [Mass/Vol] 4.2 g/dL Normal 3.4 - 5.0 [facility] Comment on above: Performed By: #### C BCDF #### [address], [place] [phone] ALP [Catalytic activity/Vol] 44 U/L Normal 33 - 120 [facility] Comment on above: Performed By: #### C BCDF #### [address], [place] [phone] ALT [Catalytic activity/Vol] 15 U/L Normal 10 - 52 [facility] Comment on above: Result Comment: Yanni ents treated with Sulfasalazine may generate falsely decreased results for ALT. Performed By: #### C BCDF #### [address], [place] [phone] Anion gap [Moles/Vol] 10 mmol/L Normal 10 - 20 [facility] Comment on above: Performed By: #### C BCDF #### [address] [place], [place] [phone] AST [Catalytic activity/Vol] 16 U/L Normal 9 - 39 [facility] Comment on above: Result Comment: MILD HEMOLYSIS DETECTED. The result may be falsely elevated due to hemolysis or other interferents. Clinical correlation is recommended. Repeat testing may be considered. Performed By: #### C BCDF #### [address], [place] [phone] Bilirubin [Mass/Vol] 0.4 mg/dL Normal 0.0 - 1.[address] [facility] Comment on above: Performed By: #### C BCDF #### [facility] [address] [facility] [place], [place] [phone] Calcium [Mass/Vol] 9.1 mg/dL Normal 8.6 - 10.3 [facility] Comment on above: Performed By: #### C BCDF #### [facility] [address] [facility] [place], [place] [phone] Chloride [Moles/Vol] 103 mmol/L Normal 98 - [address] [facility] Comment on above: Performed By: #### C BCDF #### [facility] [address] [facility] [place], [place] [phone] Creatinine [Mass/Vol] 0.93 mg/dL Normal 0.50 - 1.30 [facility] Comment on above: Performed By: #### C BCDF #### [facility] [address] [facility] [place], [place] [phone] GFR- AM. >60 Normal >60 [facility] Comment on above: Result Comment: CALC ULATIONS OF ESTIMATED GFR ARE PERFORMED USING THE MDRD STUDY EQUATION FOR THE IDMS-TRACEABLE CREATININE METHODS. CLIN CHEM 2007;53:766-72 Performed By: #### C BCDF #### [facility] [address] [facility] [place], [place] [phone] GFR-NON AM. >60 Normal >60 [facility] Comment on above: Performed By: #### C BCDF #### [facility] [address] [facility] [place], [place] [phone] Glucose [Mass/Vol] 100 mg/dL High 74 - 99 [facility] Comment on above: Performed By: #### C BCDF #### [facility] [address] [facility] [place], [place] [phone] HCO3 (Bld) [Moles/Vol] 25 mmol/L Normal 21 - 32 [facility] Comment on above: Performed By: #### C BCDF #### [facility] [address] [facility] [place], [place] [phone] Potassium [Moles/Vol] 4.2 mmol/L Normal 3.5 - 5.3 [facility] Comment on above: Result Comment: MILD HEMOLYSIS DETECTED. The result may be falsely elevated due to hemolysis or other interferents. Clinical correlation is recommended. Repeat testing may be considered. Performed By: #### C BCDF #### [facility] [address] [facility] [place], [place] [phone] Protein [Mass/Vol] 6.9 g/dL Normal 6.4 - 8.2 [facility] Comment on above: Performed By: #### C BCDF #### [facility] [address] [facility] [place], [place] [phone] Sodium [Moles/Vol] 134 mmol/L Low 136 - 145 [facility] Comment on above: Performed By: #### C BCDF #### [facility] [address] [facility] [place], [place] [phone] Urea nitrogen [Mass/Vol] 15 mg/dL Normal 6 - 23 [facility] Comment on above: Performed By: #### C BCDF #### [facility] [address] [facility] [place], [place] [phone] Chart Updateon 02-18-2021 Chart Update Diagnoses/Problems Ascending aortic aneurysm (441.2) (I71.2) Chest pain (786.50) (R07.9) Message Recorded as Task Date: 02/17/2021 10:20 AM, Created By: Antonia Cuenca Task Name: Callback Medical Advice Assigned To: Wally Lawton Regarding Patient: HOSEA ALVAREZ, Status: Active Comment: Antonia Cuenca - 17 Feb 2021 10:20 AM TASK CREATED Caller: Self; Patient saw Dr. Lawton at [facility] on 02/13/21. Since then he has gone to the ER at [facility] and the ER at [facility]. Hosea thinks he needs an Echocardiogram and would like Dr. Lawton to consider ordering this for him. Patient states he doesn't think he's going to survive waiting for the ordered testing (24 hour Holter on 02/21/21 at [facility] and the Stress MRI on 03/14/21 at [facility]). I tried reassuring the patient. To [facility] for review. ---ssd. I called and left a voice mail for the patient. Signatures Electronically signed by : Wally Lawton MD; Feb 18 2021 9:47AM EST (Author) Normal [employer] Complete Blood Count + Diffe rentialon 02-18-2021 Basophils/100 WBC (Bld) 0.2 % 0.0 - 2.0 [facility] Work Phone: Erythrocyte distribution width (RBC) [Ratio] 12.2 % See Below [facility] Work Phone: Comment on above: Reference Range: 11. 5 - 14.5 Hematocrit (Bld) [Volume fraction] 37.1 % below low threshold See Below [facility] Work Phone: Comment on above: Reference Range: 41. 0 - 52.0 Hemoglobin (Bld) [Mass/Vol] 12.5 g/dL below low threshold See Below [facility] Work Phone: Comment on above: Reference Range: 13. 5 - 17.5 Lymphocytes/100 WBC (Bld) 20.2 % See Below -[facility] Work Phone: Comment on above: Reference Range: 13. 0 - 44.0 MCHC (RBC) [Mass/Vol] 33.7 g/dL See Below - [facility] Work Phone: Comment on above: Reference Range: 32. 0 - 36.0 MCV (RBC) [Entitic vol] 83 fL 80 - 100 [facility] Work Phone: Monocytes/100 WBC (Bld) 6.5 % 2.0 - 10.0 [facility] Work Phone: [phone] Neutrophils/100 WBC (Bld) 72.4 % See Below [facility] Work Phone: [phone] Comment on above: Reference Range: 40. 0 - 80.0 Platelets (Bld) [#/Vol] 153 10*3/uL 150 - 450 [facility] Work Phone: [phone] RBC (Bld) [#/Vol] 4.47 {x10E12/L} below low threshold See Below [facility] Work Phone: Comment on above: Reference Range: 4.5 0 - 5.90 WBC (Bld) [#/Vol] 6.0 10*3/uL 4.4 - 11.3 [facility] Work Phone: [phone] Complete Blood Count + Differential 0.01 {x10E9/L} See Below [facility] Work Phone: Comment on above: Reference Range: 0.0 0 - 0.10 Reference Range: 0.0 0 - 0.70 Complete Blood Count + Differential 0.39 {x10E9/L} See Below [facility] Work Phone: Comment on above: Reference Range: 0.1 0 - 1.00 Complete Blood Count + Differential 1.21 {x10E9/L} See Below [facility] Work Phone: Comment on above: Reference Range: 1.2 0 - 4.80 Complete Blood Count + Differential 4.35 {x10E9/L} See Below [facility] Work Phone: Comment on above: Reference Range: 1.2 0 - 7.70 Complete Blood Count + Differential 0.2 % 0.0 - 6.0 [facility] Work Phone: Complete Blood Count + Differential 0.5 % 0.0 - 0.9 [facility] Work Phone: Comment on above: Immature Granulocyte Count (IG) includes promyelocytes, myelocytes and metamyelocytes but does not include bands. Percent differential counts (%) should be interpreted in the context of the absolute cell counts (cells/L). Laboratory - Chemistry and C hemistry - challengeon 02-18-2021 Anion gap [Moles/Vol] Anion Gap 17 MMOL/ L (0-19 MMOL/L) 0 - 19 MMOL/L [facility] Calcium [Mass/Vol] Calcium 8.3 MG/DL L (8.5-10.4 MG/DL) Low 8.5 - 10.4 MG/DL [facility] Chloride [Moles/Vol] Chloride 102 MMOL/L (97-107 MMOL/L) 97 - 107 MMOL/L S CO2 [Moles/Vol] Carbon Dioxide 20 MM OL/L L (24-31 MMOL/L) Low 24 - 31 MMOL/L [facility] Creatinine [Mass/Vol] Creatinine R 0.9 M G/DL (0.4-1.6 MG/DL) 0.4 - 1.6 MG/DL [facility] GFR/1.73 sq M.predicted MDRD (S/P/Bld) [Vol rate/Area] EGFR 95 mL/min/1.73 m2 (Reference Range: not available) GFR ml/min/1.73m2 Stage ----- 90 1 60-89 2 30-59 3 15-29 4 <15 5 For -Americans, multiply EGFR result by 1.210 Calculation not validated for patients under 18 years of age. Performed at [address] [address] [facility] Glucose [Mass/Vol] Glucose 102 MG/DL H (65-99 MG/DL) High 65 - 99 MG/DL [facility] Potassium [Moles/Vol] Potassium R 3.8 MM OL/L (3.4-5.1 MMOL/L) 3.4 - 5.1 MMOL/L [facility] Sodium [Moles/Vol] Sodium 138 MMOL/L (133-145 MMOL/L) 133 - 145 MMOL/L [facility] Troponin T.cardiac [Mass/Vol] HS Troponin T,Gen 5 7 NG/L (-<15 NG/L) Sex Specific Reference Range: Male (0-22), Female (0-14) Change(Delta) >=5 is significant Troponin Baseline and Serial elevation for significant change(delta)should be interpreted in conjunction with clinical presentation, history, signs and symptoms, ECG and biomarker concentrations. Troponin elevation can be seen in several other non-infarct conditions. Chronic troponin elevations can be detected in clinically stable patients with heart failure, cardiomyopathy, renal failure, diabetes, etc. Elevated troponin can also occur in myocarditis, heart contusion, PE, drug induced cardiotoxicity, etc. Samples should NOT be taken from patients receiving high dose biotin (> 5mg) doses until 8 hours following last biotin administration. [facility] Urea nitrogen [Mass/Vol] BUN 13 MG/DL (8-25 MG/DL) 8 - 25 MG/DL [facility] Urea nitrogen/Creatinine [Mass ratio] BUN Creatinine Ratio 14.4 RATIO (8-21 RATIO) 8 - 21 RATIO [facility] Albumin BCP dye [Mass/Vol] 4.2 g/dL 3.4 - 5.0 [facility] Work Phone: ALP [Catalytic activity/Vol] 44 U/L 33 - 120 [facility] Work Phone: ALT With P-5'-P [Catalytic activity/Vol] 15 U/L 10 - 52 [facility] Work Phone: [phone] Comment on above: Patients treated wit h Sulfasalazine may generate falsely decreased results for ALT. Anion gap [Moles/Vol] 10 mmol/L 10 - 20 [facility] Work Phone: [phone] AST With P-5'-P [Catalytic activity/Vol] 16 U/L 9 - 39 [facility] Work Phone: [phone] Comment on above: MILD HEMOLYSIS DETEC SEBASTIÁN. The result may be falsely elevated due tohemolysis or other interferents. Clinical correlation is recommended.Repeat testing may be considered. Bilirubin [Mass/Vol] 0.4 mg/dL 0.0 - 1.2 [facility] Work Phone: Calcium [Mass/Vol] 9.1 mg/dL 8.6 - 10.3 [facility] Work Phone: [phone] Chloride [Moles/Vol] 103 mmol/L 98 - 107 [facility] Work Phone: [phone] CO2 [Moles/Vol] 25 mmol/L 21 - 32 [facility] Work Phone: Creatinine [Mass/Vol] 0.93 mg/dL See Below [facility] Work Phone: [phone] Comment on above: Reference Range: 0.5 0 - 1.30 Glucose [Mass/Vol] 100 mg/dL above high threshold 74 - 99 [facility] Work Phone: Potassium [Moles/Vol] 4.2 mmol/L 3.5 - 5.3 [facility] Work Phone: Comment on above: MILD HEMOLYSIS DETEC SEBASTIÁN. The result may be falsely elevated due tohemolysis or other interferents. Clinical correlation is recommended.Repeat testing may be considered. Protein [Mass/Vol] 6.9 g/dL 6.4 - 8.2 MG-[facility] Work Phone: Sodium [Moles/Vol] 134 mmol/L below low threshold 136 - 145 [facility] Work Phone: Urea nitrogen [Mass/Vol] 15 mg/dL 6 - 23 [facility] Work Phone: Laboratory - Hematology and Cell countson 02-18-2021 Basophils (Bld) [#/Vol] Abs Baso 0.01 K/UL (0.00-0.22 K/UL) 0.00 - 0.22 K/UL [facility] Basophils/100 WBC (Bld) Basophil 0.20 % (0-1 %) 0 - 1 % [facility] Differential cell count method Nom (Bld) Diff Type AUTO DIFF (Reference Range: not available) [facility] Eosinophils (Bld) [#/Vol] Abs Eos 0.02 K/UL (0-0.45 K/UL) 0 - 0.45 K/UL [facility] Eosinophils/100 WBC (Bld) Eosinophil 0.40 % (0-3 %) 0 - 3 % [facility] Erythrocyte distribution width (RBC) [Entitic vol] RDW SD 39.1 FL (37.0-54.0 FL) 37.0 - 54.0 FL S Erythrocyte distribution width (RBC) [Ratio] RDW CV 12.6 % (11.7-15.0 %) 11.7 - 15.0 % S Hematocrit (Bld) [Volume fraction] HCT 36.8 % L (41-50 %) Low 41 - 50 % [facility] Hemoglobin (Bld) [Mass/Vol] HGB 12.1 GM/DL L (13.5-16.5 GM/DL) Low 13.5 - 16.5 GM/DL S Immature granulocytes (Bld) [#/Vol] Abs Imm Neut 0.01 K/UL (0.0-0.1 K/UL) 0.0 - 0.1 K/UL S Lymphocytes (Bld) [#/Vol] Abs Lymph 1.35 K/UL (1.2-3.2 K/UL) 1.2 - 3.2 K/UL S Lymphocytes/100 WBC (Bld) Lymphocyte 28.20 % (20-40 %) 20 - 40 % S MCH (RBC) [Entitic mass] MCH 28.3 PG (26-34 PG) 26 - 34 PG S MCHC (RBC) [Mass/Vol] MCHC 32.9 % (31-37 %) 31 - 37 % S MCV (RBC) [Entitic vol] MCV 86.2 FL (80-100 FL) 80 - 100 FL S Monocytes (Bld) [#/Vol] Abs Gage 0.36 K/UL (0-0.8 K/UL) 0 - 0.8 K/UL [facility] Monocytes/100 WBC (Bld) Monocyte 7.50 % (0-8 %) 0 - 8 % [facility] Neutrophils (Bld) [#/Vol] Abs.Neut.Calculated 3.04 K/UL (Reference Range: not available) Performed at [address] [address] [facility] Neutrophils (Bld) [#/Vol] Abs Neut 3.04 K/UL (1.8-7.7 K/UL) 1.8 - 7.7 K/UL [facility] Neutrophils.immature/ 100 WBC (Bld) Immature Neut % 0.20 % (0.0-1.0 %) 0.0 - 1.0 % [facility] Nucleated RBC/100 WBC (Bld) [Ratio] NRBCs 0 /100 WBC (0 /100 WBC) [facility] Platelet mean volume (Bld) [Entitic vol] MPV 12.1 CU (7.0-12.6 CU) 7.0 - 12.6 CU [facility] Platelets (Bld) [#/Vol] PLT 156 K/UL (150-450 K/UL) 150 - 450 K/UL [facility] RBC (Bld) [#/Vol] RBC 4.27 M/UL L (4.5 -5.5 M/UL) Low 4.5 - 5.5 M/UL [facility] Segmented neutrophils/100 WBC (Bld) Granulocyte 63.50 % (50-70 %) 50 - 70 % [facility] WBC (Bld) [#/Vol] WBC 4.8 K/UL (4.5-11 .0 K/UL) 4.5 - 11.0 K/UL [facility] No Panel Informationon 02-18 HS Troponin T Delta 1 (0-4 ) Performed at [address] [address] 0 - 4 [facility] >60 >60 [facility] Work Phone: Comment on above: CALCULATIONS OF NIKOLE MATED GFR ARE PERFORMED USING THE MDRD STUDY EQUATION FOR THE IDMS-TRACEABLE CREATININE METHODS. CLIN CHEM 2007;53:766-72 Provider Note - ED v2on 01-22 Provider Note - ED v2 Provider Note - ED v2: Chart Review: ED NOTES ED NOTES: Allergies: Reviewed. Past medical history: Reviewed. Past surgical history Reviewed. Social history: Reviewed. HPI: Patient is a 50-year-old white male, past medical history of ascending aortic aneurysm, renal stenosis, heart murmur, daily alcohol use and smoker, bipolar, presenting to the ED with chief complaint of trouble swallowing. Patient states he was eating some [employer] earlier and had difficulty swallowing a chicken nuggets stating that he feels there is something pressing on his esophagus that is not allowing him to swallow. He denies any complaints of chest pain or shortness of breath. No trismus, drooling. He denies any abdominal pain, nausea, vomiting. No urinary complaints. No myalgias, arthralgias, generalized weakness, fatigue, numbness, tingling, weakness. No complaints at this time and denies any pain with swallowing or inability to swallow upon my interview. Review of symptoms otherwise negative unless stated above in the HPI. Physical Exam: Constitutional: Alert, oriented, cooperative, in no acute distress. Appears well nourished and well hydrated. Head: Normocephalic, atraumatic Skin: Intact, dry skin. No lesions, rash, petechiae, or purpura. Eyes: PERRL, EOMs intact, conjunctiva pink with no erythema or exudates. No scleral icterus. Eyelids without lesions. ENT: Hearing grossly intact. No external deformities. Tympanic membranes intact with visible landmarks. Nares patent, mucus membranes moist. Dentition without lesions. Pharynx clear, uvula midline. Neck: Trachea midline, no lymphadenopathy. No meningismus. Pulmonary: Lungs clear to auscultation bilaterally with good chest wall excursion. No rales, rhonchi, or wheezing. No accessory muscle use or stridor. Cardiac: Regular rate and rhythm. Normal S1 and S2 with no murmur, rub, or gallop. No JVD, carotids without bruits. 2+ DP and PT pulses. Abdomen: Soft, nontender, normoactive bowel sounds. No palpable organomegaly or mass. No rebound or guarding. No CVA tenderness. Genitourinary: Exam deferred. Musculoskeletal: Full range of motion in extremities. No pain, edema, or deformities. Peripheral pulses full and equal. No cyanosis, or clubbing. Neurological: Cranial nerves II through XII are grossly intact. Normal sensation, no weakness, no focal findings identified. Psychiatric: Appropriate mood and affect. Calm. MDM: Patient was seen and evaluated in the ED for chief complaint of trouble swallowing a [employer] chicken nuggets earlier today. On exam patient is nontoxic well-appearing resting bed comfortably. Vital signs are stable, afebrile. Chest clear, heart is regular, belly is soft and nontender. He is tolerating p.o. intake and fluids during his stay in the ED. Patient has been seen and evaluated in the ED for multiple medical complaints 11 times in the month of January and has had extensive work-ups including multiple CT imaging of his chest abdomen and pelvis. Basic blood was obtained today which shows no acute leukocytosis, anemia, acute abnormalities, kidney dysfunction. Trachea is midline, thyroid is nonpalpable. There is no palpable mass within the neck. I had extensive conversation with the patient regarding need to follow-up and be seen and evaluated and worked up on an outpatient basis as he has no emergent conditions at this time. Plan with the discharge patient home in stable condition with instruction to follow-up with primary care physician as well as with gastroenterology. I reviewed my impression, plan, and very strict return ED precautions with the patient. Did require personal security specialist out of the ED as he became belligerent and verbally abusive to myself and staff. Impression: 1. Dysphagia I discussed the differential, results and discharge plan with the patient and/or family/friend/caregiver if present. I emphasized the importance of follow-up with the physician I referred them to in the timeframe recommended. I explained reasons for the patient to return to the Emergency Department. Additional verbal discharge instructions were also given and discussed with the patient to supplement those generated by the EMR. We also discussed medications that were prescribed (if any) including common side effects and interactions. The patient was advised to abstain from driving, operating heavy machinery or making significant decisions while taking medications such as opiates and muscle relaxers that may impair this. All questions were addressed. They understand return precautions and discharge instructions. The patient and/or family/friend/caregiver expressed understanding. HISTORY OF PRESENTING ILLNESS HOSEA is a 50 year old Male and was seen by me at 18-Feb-2021 15:59 for a chief complaint of other . Other complaints include: c/o pain when swallowing which started a while (more content not included)... Normal [facility] Radiologyon 02-18-2021 XR Chest Single view Normal [facility] Work Phone: Risk Screen - Adult Emergenc yon 02-18-2021 Risk Screen - Adult Emergency Preferred Language: Preferred Language: Preferred Language for Discussing Health Care (patient/designee)Fran villalta Advanced Directives: Advance Directive/DNRno Family Violence Adult: Abuse Screen: Are you or have you been threatened or abused physically, emotionally, or sexually by anyoneno Learning Assessment (Patient): Learning Assessment (Patient): Patient is Able to be Assessed for Learningyes Factors Influencing Readiness to Learnacuteness of illness Factors that Impact Ability to Learnnone Devices/Methods Used to Communicatenone Learning Preferencesverbal instruction Cultural Considerationsnone Developmental Considerationsnone Zoroastrian Considerationsnone Learning Assessment (Other Learner): Learning Assessment (Other Learner): Other learner availableno Pressure Injury/TB/Substance: Pressure Injury: Do you have a coughno Substance Use Current or Former Historynever: Cigarette/Tobacco, e-Cigarette/Vaping, Street Drugs YES: Alcohol Alcohol Usedaily Admission Risk Screen: Significant IndicatorsComplete CAGE: CAGE: Is this an injured patient at a Trauma Center ([facility]/[place] /[place]): no Electronic Signatures: Ashkan Ott (BROOKLYNN) (Signed 18-Feb-2021 15:53) Authored: Preferred Language, Advanced Directives, Family Violence Adult, Learning Assessment (Patient), Learning Assessment (Other Learner), Pressure Injury/TB/Substance, Pressure Injury, CAGE Last Updated: 18-Feb-2021 15:53 by Ashkan Ott (BROOKLYNN) Normal [facility] TROPONIN Ion 02-18-2021 Troponin I.cardiac [Mass/Vol] ng/mL Normal 0.00 - 0.03 [facility] Comment on above: Result Comment: LESS THAN 0.04 NG/ML: NEGATIVE REPEAT TESTING IN THREE TO SIX HOURS IF CLINICALLY INDICATED. 0.04 - 0.5 NG/ML: CONSISTENT WITH POSSIBLE CARDIAC DAMAGE AND POSSIBLE INCREASED CLINICAL RISK. SERIAL MEASUREMENTS MAY HELP ASSESS EXTENT OF MYOCARDIAL DAMAGE. >0.5 NG/ML: CONSISTENT WITH CARDIAC DAMAGE, INCREASED CLINICAL RISK AND MYOCARDIAL INFARCTION. SERIAL MEASUREMENTS MAY HELP ASSESS EXTENT OF MYOCARDIAL DAMAGE. . Note: Troponin I testing is performed using different testing methodology at [facility] than at other [facility]. Direct result comparisons should only be made within the same method. Performed By: #### T ROP2 ####[facility] [place], [place] [id number] Triage - EDon 02-18-2021 Triage - ED Quick Triage: The patient and/or guardian verbally acknowledges placement for services into the following (when Urgent Care Service hours are operating):emergency department Chart Review: PRIMARY ASSESSMENT ABCD Normal Findings: airway open and patent, breathing normal, circulation normal and alert and oriented TREATMENT PRIOR TO ARRIVAL Treatment Prior to Arrival: Prior to arrival in the Emergency Department HOSEA ALVAREZ had treatment conducted by EMS which included the following; none. ARRIVAL INFORMATION Means of Arrival: stretcher Mode of Arrival: ambulance Agency: City Agency Name: Phillip Arrival From: home Accompanied By: self Language: Spoken Language Preferred: Zimbabwean Reading Language Preferred: Zimbabwean Escort Patients Requested: no film archivist was requested CHIEF COMPLAINT HOSEA ALVAREZ is a Male patient with a chief complaint of other. Other Complaints: c/o pain when swallowing which started a while ago after eating sushil Triage Date/Time: 18-Feb-2021 15:48 WILMAN: 4 Pain Rating (0-10): 6 = Moderate Pain location: throat Vital Signs: Temperature: 98.1F ( 36.7C) taken skin probe Blood Pressure: 136/91 Mean: Heart Rate: 87 Respiratory Rate: 16 Pulse Oximetry: 99% on room air, no respiratory support. Height: 5 feet 6 inches. 167.6 CM Weight: 185.1 pounds. Calculated 84.0 kg. (stated) Calculated BMI (kg/m2): 29.904 Calculated BSA (m2) 1.98 [place] Coma Scale: Best Eye Response: (E4) spontaneous Best Motor Response: (M6) obeys commands Best Verbal Response: (V5) oriented [place] Score: 15 Allergies: yes Patient has homicidal thoughts: no Symptoms Are POSITIVE For: pain Symptoms Are Negative For: anxiety, chills, diaphoresis, dyspnea, headache, loss of consciousness, nausea, numbness, tingling and weakness Last Known Well: known Time Last Known Well Date/Time: 18-Feb-2021 14:00 Risk Screens Suicide Risk Screen In the Past Month: Have you wished you were or wished you could go to sleep and not wake up no In the Past Month: Have you had any actual thoughts of killing yourself no In Your Lifetime: Have you ever done anything, started to do anything, or prepared to do anything to end your life no [place] Fall Scale Screening Has the patient fallen before (or is the patient in the ED as a result of a fall) has not had a fall Does the patient have an impaired gait does not have impaired gait Is the patient cognitively impaired not cognitively impaired Interventions: Molina Fall Interventions: LOW INTERVENTIONS: *patient oriented to surroundings and call system, * patient/family falls education completed and documented, *patients fall status communicated during bedside handoff, *whiteboard updated, *mode of toileting discussed with patient, *bed in low position with brakes locked, *call light in reach, * non-skid footwear PAST MEDICAL HISTORY Immunization History: Last Known Tetanus Immunization: Unknown TRAVEL HISTORY Travel History Coronavirus Screening: no exposure or symptoms Travel Exposure History: NO travel to International locations in the past 30 days PAIN Pain Scale Used: SHANNON Pain Rating (0-10): 6 = Moderate Past Medical History: Past Medical History Reviewedyes Electronic Signatures: Ashkan Ott (BROOKLYNN) (Signed 18-Feb-2021 15:52) Authored: Quick Triage, Risk Screens, Pain, Arrival, Pre-arrival, ABCD, Immunizations, Travel History, Chart Review, Scores, Past Medical History Last Updated: 18-Feb-2021 15:52 by Ashkan Ott) Normal [facility] Troponin I, Serumon 02-19-20 21 Troponin I.cardiac [Mass/Vol] ng/mL See Below [facility] Work Phone: Comment on above: Reference Range: 0.0 0 - 0.03LESS THAN 0.04 NG/ML: NEGATIVEREPEAT TESTING IN THREE TO SIX HOURSIF CLINICALLY INDICATED.0.04 - 0.5 NG/ML: CONSISTENT WITH POSSIBLECARDIAC DAMAGE AND POSSIBLE INCREASEDCLINICAL RISK.SERIAL MEASUREMENTS MAY HELP ASSESS EXTENT OFMYOCARDIAL DAMAGE.>0.5 NG/ML: CONSISTENT WITH CARDIAC DAMAGE,INCREASED CLINICAL RISK AND MYOCARDIALINFARCTION. SERIAL MEASUREMENTS MAY HELPASSESS EXTENT OF MYOCARDIAL DAMAGE..Note: Troponin I testing is performed using different testing methodology at [facility] than at other [facility]. Direct result comparisons should only be made within the same method. Chart Updateon 02-17-2021 Chart Update Message Recorded as Task Date: 02/16/2021 10:19 AM, Created By: Antonia Cuenca Task Name: Callback Medical Advice Assigned To: Antonia Cuenca Regarding Patient: HOSEA ALVAREZ, Status: Active Comment: Antonia Cuenca - 16 Feb 2021 10:19 AM TASK CREATED Caller: Self; Patient called, he was D/C from [facility] wearing a 24 hour Holter Monitor. Patient tells me he went to [facility] this week for a CT scan, they took off his monitor to do the test and it was lost. I notified [facility] Biometrics Dept., they will notify the monitor rep. so they can file the correct paperwork. Hosea also tells me he is living on the [facility] and it is too hard to get to [facility] for testing and follow up appointments. (he has to take several buses and it takes several hours). Hosea would like to get referred to a Dinkey Locomotive Engineer at [facility]. To [facility] for review. ---Antonia Luz - 16 Feb 2021 10:47 AM TASK REASSIGNED: Previously Assigned To Wally Lawton CORRECTION: I spoke with the patient again and now he tells me he wants to follow up with Dr. Lawton in [facility] / [place]. Hosea would like to know if [facility] wants him to wear another 24 hour Holter (since the first one was lost)? If yes, he wants it applied at [facility]. (exercise stress cardiac MRI at [facility] = 03/14/21. follow up OV = 03/23/21.) To [facility] for review. ---ssd. Wally Lawton - 16 Feb 2021 6:50 PM TASK REPLIED TO: Previously Assigned To Wally Lawton Please arrange for the Holter to be re-applied. Thx. Antonia Cuenca - 17 Feb 2021 10:09 AM TASK REASSIGNED: Previously Assigned To Antonia Cuenca I called [facility] Holter / [facility]VI Dept. ([phone]) and scheduled the 24 hour Holter for 02/21/21 at 12:00pm (noon). I spoke with the patient regarding Dr. Lawton's reply/orders, the patient demonstrated a good understanding. ----ssd. Signatures Electronically signed by : Antonia Cuenca L.P.N.; Feb 17 2021 10:14AM EST (Author) Electronically signed by : Wally Lawton MD; Feb 18 2021 9:52AM EST (Author) Normal [facility] Chart Updateon 02-16-2021 Chart Update Message Recorded as Task Date: 02/14/2021 07:06 PM, Created By: Wally Lawton Task Name: Schedule Appt Assigned To: Ivan Arango Regarding Patient: HOSEA ALVAREZ, Status: In Progress Comment: Wally Lwaton - 14 Feb 2021 7:06 PM TASK CREATED I ordered a cardiac MRI and exercise stress MRI on this patient. Please schedule testing and follow up after testing. Please summarize as a Chart Update , and submit to me to sign. [place]. Ivan Arango - 15 Feb 2021 2:27 PM TASK REPLIED TO: Previously Assigned To Ivan Arango for patient. Patient is scheduled 03/14/21 for MRI at [facility]. Ivan Arango - 16 Feb 2021 9:55 AM TASK IN PROGRESS Ivan Arango - 16 Feb 2021 10:30 AM TASK REPLIED TO: Previously Assigned To Ivan Arango Patient aware of appt. Signatures Electronically signed by : Ivan Arango, ; Feb 16 2021 10:31AM EST (Co-author) Electronically signed by : Wally Lawton MD; Feb 16 2021 6:53PM EST (Author) Normal [facility] CT Abdomen and Pelvis withou t Contraston 02-15-2021 CT Abdomen and Pelvis WO contrast Normal [facility] [facility] [address] Work Phone: CT Chest without Contraston 02-15-2021 CT Chest WO contrast Normal [facility] [address] [facility] [address] Work Phone: Chart Updateon 02-15-2021 Chart Update Diagnoses/Problems Chest pain (786.50) (R07.9) Orders Chest pain MRI Cardiac w/wo contrast with Regadenoson stress for Morph/Funct and Valve Dz; Status:Hold For - Scheduling; Requested for:[id number]; Perform:[facility]; Due:[id number];Ordered; For:Chest pain; Ordered By:Wally Lawton; Radiologist to Determine Optimal Study : Y Does the patient have a Cochlear Implant, Pacemaker, Defibrilator, Pacing Wire, Brain Aneurysm Clip, Implanted Nerve or Bone Graft Simulator, Implanted Breast Tissue Automotive Parts Advisor, Glucose Monitor, or Neulasta Device? : No What are the patient's signs and symptoms? : chest pain, COVID MRI Cardiac w/wo contrast with Treadmill stress for Morph/Funct and Valve Dz; Status:Canceled - New order for pharmacologic study.; Perform:[facility];Ordered; For:Chest pain; Ordered By:Wally Lawton; Reason: Unspecified for MRI Cardiac w/wo contrast with Treadmill stress for Morph/Funct and Valve Dz Radiologist to Determine Optimal Study : Y Does the patient have a Cochlear Implant, Pacemaker, Defibrilator, Pacing Wire, Brain Aneurysm Clip, Implanted Nerve or Bone Graft Simulator, Implanted Breast Tissue Automotive Parts Advisor, Glucose Monitor, or Neulasta Device? : No What are the patient's signs and symptoms? : chest pain, COVID Chart Update In light of his ascending aortic aneurysm, will switch from exercise MRI to Lexiscan MRI stress, which will be safer for him. Signatures Electronically signed by : Wally Lawton MD; Feb 15 2021 2:01PM EST (Author) Normal [facility] Complete Blood Count + Diffkatelynn conner 02-15-2021 Basophils/100 WBC (Bld) 0.3 % 0.0 - 2.[address] [facility] [address] Work Phone: [phone] Erythrocyte distribution width (RBC) [Ratio] 12.6 % See Below [facility] [facility] [address] Work Phone: [phone] Comment on above: Reference Range: 11. 5 - 14.5 Hematocrit (Bld) [Volume fraction] 37.9 % below low threshold See Below [facility] [facility] [address] Work Phone: [phone] Comment on above: Reference Range: 41. 0 - 52.0 Hemoglobin (Bld) [Mass/Vol] 12.9 g/dL below low threshold See Below [address] [facility] [address] Work Phone: [phone] Comment on above: Reference Range: 13. 5 - 17.5 Lymphocytes/100 WBC (Bld) 27.7 % See Below [address] [facility] Work Phone: [phone] Comment on above: Reference Range: 13. 0 - 44.0 MCHC (RBC) [Mass/Vol] 34.0 g/dL See Below [facility] [facility] [address] Work Phone: [phone] Comment on above: Reference Range: 32. 0 - 36.0 MCV (RBC) [Entitic vol] 84 fL 80 - [address] [facility] [address] Work Phone: [phone] Monocytes/100 WBC (Bld) 8.5 % 2.0 - 10.[address] [facility] [address] Work Phone: [phone] Neutrophils/100 WBC (Bld) 62.9 % See Below [address] [facility] Work Phone: [phone] Comment on above: Reference Range: 40. 0 - 80.0 Platelets (Bld) [#/Vol] 126 10*3/uL below low threshold 150 - [address] [facility] [address] Work Phone: [phone] RBC (Bld) [#/Vol] 4.51 {x10E12/L} See Below [facility] [address] [facility] [address] Work Phone: Comment on above: Reference Range: 4.5 0 - 5.90 WBC (Bld) [#/Vol] 3.8 10*3/uL below low threshold 4.4 - 11.[address] [facility] [address] Work Phone: Complete Blood Count + Differential 0.01 {x10E9/L} See Below [address] [facility] [address] Work Phone: Comment on above: Reference Range: 0.0 0 - 0.10 Reference Range: 0.0 0 - 0.70 Complete Blood Count + Differential 0.32 {x10E9/L} See Below [address] [facility] [address] Work Phone: Comment on above: Reference Range: 0.1 0 - 1.00 Complete Blood Count + Differential 1.04 {x10E9/L} below low threshold See Below [address] [facility] [address] Work Phone: Comment on above: Reference Range: 1.2 0 - 4.80 Complete Blood Count + Differential 2.37 {x10E9/L} See Below [address] [facility] [address] Work Phone: Comment on above: Reference Range: 1.2 0 - 7.70 Complete Blood Count + Differential 0.3 % 0.0 - 0.[address] [facility] [address] Work Phone: Comment on above: Immature Granulocyte Count (IG) includes promyelocytes, myelocytes and metamyelocytes but does not include bands. Percent differential counts (%) should be interpreted in the context of the absolute cell counts (cells/L). Initial Visit (Rheumatology) on 02-15-2021 Initial Visit (Rheumatology) Diagnoses/Problems Assessed Esophageal spasm (530.5) (K22.4) Renal artery stenosis (440.1) (I70.1) Ascending aortic aneurysm (441.2) (I71.2) COVID-19 (079.89) (U07.1) Essential hypertension (401.9) (I10) Provider Impressions 50 M Presently in [facility] calling from the waiting room! Telemed PHONE Since Covid DX in September 2020 Flares of Esophageal Pain with chest pain and hypertension Worse after eating certain foods with sodium nitrate or caffeine R arm tightens up as well L side swells up i just got an RX for Dexamethasone I am afraid to eat HX of Renal Art Stenosis Aneurysm Latest lab 01/2021 ER WSR 22 CRP normal JANENE 1:40 with normal EARL and anti- DNA Plt 121,000 WBC 3800 H/H 12./37.9 CT chest and abdomen reviewed DX No clinical evidence of a systemic disease based on the history and lab reviewed Esophageal Pathology?? Plan: He has been to many hospital systems in ER multiple x's He needs PCP Possibly a GI consult Discussed all of this with him. See in person if needed Chief Complaint An interactive audio and video telecommunication system which permits real time communications between the patient (at the originating site) and provider (at the distant site) was utilized to provide this telehealth service. Verbal consent was requested and obtained from HOSEA ALVAREZ on this date, 02/15/2021 01:00 PM , for a telehealth visit. Do I have an Autoimmune disease related to Lucasstefani esdras calixto? Multiple ER visits in many hospital systems in at least [place] and [place] History of Present IllnessConsult ? Esdras Calixto autoimmune issues or concerns Refer; Self his PCP is in [place] [facility] 50 M Presently in [facility] ER calling from the waiting room! Telemed PHONE Since Covid DX in September 2020 Flares of Esophageal Pain with chest pain and hypertension Worse after eating certain foods with sodium nitrate or caffeine R arm tightens up as well L side swells up i just got an RX for Dexamethasone I am afraid to eat HX of Renal Art Stenosis Aneurysm Latest lab 01/2021 ER WSR 22 CRP normal JANENE 1:40 with normal EARL and anti- DNA Plt 121,000 WBC 3800 H/H 12.9/37.9 CT chest and abdomen reviewed DX No clinical evidence of a systemic disease based on the history and lab reviewed Esophageal Pathology?? Plan: He has been to many hospital systems in ER multiple x's He needs PCP Possibly a GI consult Discussed all of this with him. See in person if needed Review of Systems Constitutional: feeling poorly, but no fever, no chills, no night sweats and no recent weight loss. Eyes: no worsening vision, no conjunctival irritation and no dryness of the eyes. ENT: no hearing change, no tinnitus, no nasal congestion, no mouth sores and no dry mouth. Cardiovascular: chest pain, but no palpitations. Respiratory: no shortness of breath, no wheezing and no cough. Gastrointestinal: no abdominal pain, no nausea, no vomiting, bowel movements have not recently changed, no blood in stools and as noted in HPI. Genitourinary: no dysuria, no nocturia, no hematuria, no change in urinary frequency and no genital lesion. Musculoskeletal: no back pain, no myalgias, no arthralgias, no localized joint pain, no muscle weakness, no jaw claudication, no morning stiffness and no joint swelling:. Integumentary: no skin lesions, no rashes, no patchy hair loss, no photosensitivity, no clubbing, no Raynaud's and no nail abnormalities. Neurological: no paresthesia, no focal signs, no headache, no convulsions and no dizziness. Psychiatric: emotional problems, but no anxiety and no depression. Endocrine: no polyuria, no polydipsia, no temperature intolerance and no fatigue. Hematologic/Lymphatic: no tendency for easy bleeding and no tendency for easy bruising. All other systems have been reviewed and are negative for complaint. Active Problems Problems Ascending aortic aneurysm (441.2) (I71.2) Chest pain (786.50) (R07.9) COVID-19 (079.89) (U07.1) Essential hypertension (401.9) (I10) Renal artery stenosis (440.1) (I70.1) Results/Data CT Abdomen and Pelvis without [id number] 11:58Dejah [place] Test NameResultFlagReference CT Abdomen and Pelvis without Contrast(Report) Interpreted by: RASHAUN ESTRADA 02/15/21 12:10 Patient Name: HOSEA ALVAREZ STUDY: CT ABDOMEN AND PELVIS WO CONTRAST; CT CHEST WO CONTRAST; 02/15/2021 11:58 am INDICATION: epigastric pain ; pain. COMPARISON: None. ACCESSION NUMBER(S): [id number]; [id number] ORDERING CLINICIAN: DEJAH LEPE TECHNIQUE: Axial CT of the chest, abdomen, and pelvis was performed. Coronal and sagittal reconstructions were performed. No intravenous or oral contrast agents were administered. FINDINGS: Please note that the study is limited without intravenous contrast. CHEST: LUNG/PLEURA/LARGE AIRWAYS: The trachea and central airways are patent. No (more content not included)... Normal [facility] - Chemistry and C hemistry - challengeon 02-15-2021 Albumin BCP dye [Mass/Vol] 4.2 g/dL 3.4 - 5.[address] [facility] Work Phone: [phone] ALP [Catalytic activity/Vol] 46 U/L 33 - [address] [facility] [address] Work Phone: [phone] ALT With P-5'-P [Catalytic activity/Vol] 16 U/L 10 - [address] [facility] [address] Work Phone: [phone] Comment on above: Patients treated wit h Sulfasalazine may generate falsely decreased results for ALT. Anion gap [Moles/Vol] 12 mmol/L 10 - [address] [facility] [address] Work Phone: [phone] AST With P-5'-P [Catalytic activity/Vol] 14 U/L 9 - [address] [facility] [address] Work Phone: [phone] Bilirubin [Mass/Vol] 0.3 mg/dL 0.0 - 1.2 [facility] [address] [facility] [address] Work Phone: [phone] Calcium [Mass/Vol] 9.2 mg/dL 8.6 - 10.[address] [facility] [address] Work Phone: [phone] Chloride [Moles/Vol] 102 mmol/L 98 - [address] [facility] [address] Work Phone: [phone] CO2 [Moles/Vol] 27 mmol/L 21 - [address] [facility] Work Phone: [phone] Creatinine [Mass/Vol] 0.90 mg/dL See Below MP- [address] [facility] Work Phone: [phone] Comment on above: Reference Range: 0.5 0 - 1.30 Glucose [Mass/Vol] 99 mg/dL 74 - [address] [facility] Work Phone: Potassium [Moles/Vol] 3.6 mmol/L 3.5 - 5.3 [address] [facility] Work Phone: Protein [Mass/Vol] 7.1 g/dL 6.4 - 8.[address] [facility] Work Phone: Sodium [Moles/Vol] 137 mmol/L 136 - [address] [facility] Work Phone: Urea nitrogen [Mass/Vol] 14 mg/dL 6 - [address] [facility] Work Phone: Lipase, Serumon 02-15-2021 Lipase [Catalytic activity/Vol] 12 U/L 9 - [address] [facility] Work Phone: Comment on above: Venipuncture immedia tely after or during the administration of Metamizole may lead to falsely low results. Testing should be performed immediately prior to Metamizole dosing. E-zyidsl-m-benzoquinone imine (metabolite of Acetaminophen) will generate erroneously low results in samples for patients that have taken toxic doses of acetaminophen. No Panel Informationon 02-15 >60 >[address] [facility] Work Phone: Comment on above: CALCULATIONS OF NIKOLE MATED GFR ARE PERFORMED USING THE MDRD STUDY EQUATION FOR THE IDMS-TRACEABLE CREATININE METHODS. CLIN CHEM 2007;53:766-72 EKG (Reference Range : not available) Ventricular Rate : 73 BPM Atrial Rate : 73 BPM P-R Interval : 172 ms QRS Duration : 100 ms Q-T Interval : 358 ms QTC Calculation(Bazett) : 394 ms Calculated P [place] : 39 degrees Calculated R [place] : -11 degrees Calculated T [place] : 22 degrees Diagnosis:Normal sinus rhythm Normal ECG When compared with ECG of 15-FEB-2021 09:05, PREVIOUS ECG IS PRESENT Confirmed by Elizabet Gimenez ([id number]) on 02/15/2021 1:12:28 PM See also the report from this date [facility] Troponin I, Serumon 02-16-20 21 Troponin I.cardiac [Mass/Vol] ng/mL See Below Venkatesh Cerna [facility] [address] Work Phone: Comment on above: Reference Range: 0.0 0 - 0.03LESS THAN 0.04 NG/ML: NEGATIVEREPEAT TESTING IN THREE TO SIX HOURSIF CLINICALLY INDICATED.0.04 - 0.5 NG/ML: CONSISTENT WITH POSSIBLECARDIAC DAMAGE AND POSSIBLE INCREASEDCLINICAL RISK.SERIAL MEASUREMENTS MAY HELP ASSESS EXTENT OFMYOCARDIAL DAMAGE.>0.5 NG/ML: CONSISTENT WITH CARDIAC DAMAGE,INCREASED CLINICAL RISK AND MYOCARDIALINFARCTION. SERIAL MEASUREMENTS MAY HELPASSESS EXTENT OF MYOCARDIAL DAMAGE..Note: Troponin I testing is performed using different testing methodology at [facility] than at other [facility]. Direct result comparisons should only be made within the same method. Laboratory - Chemistry and C hemistry - challengeon 02-14-2021 Anion gap [Moles/Vol] Anion Gap 18 MMOL/ L (0-19 MMOL/L) 0 - 19 MMOL/L [facility] Calcium [Mass/Vol] Calcium 8.6 MG/DL (8.5-10.4 MG/DL) 8.5 - 10.4 MG/DL [facility] Chloride [Moles/Vol] Chloride 102 MMOL/L (97-107 MMOL/L) 97 - 107 MMOL/L [facility] CO2 [Moles/Vol] Carbon Dioxide 19 MM OL/L L (24-31 MMOL/L) Low 24 - 31 MMOL/L [facility] Creatinine [Mass/Vol] Creatinine R 0.9 M G/DL (0.4-1.6 MG/DL) 0.4 - 1.6 MG/DL [facility] GFR/1.73 sq M.predicted MDRD (S/P/Bld) [Vol rate/Area] EGFR 95 mL/min/1.73 m2 (Reference Range: not available) GFR ml/min/1.73m2 Stage ----- 90 1 60-89 2 30-59 3 15-29 4 <15 5 For -Americans, multiply EGFR result by 1.210 Calculation not validated for patients under 18 years of age. Performed at [facility] [id number] [place] [id number] [facility] Glucose [Mass/Vol] Glucose 85 MG/DL (65 -99 MG/DL) 65 - 99 MG/DL S Potassium [Moles/Vol] Potassium R 3.9 MM OL/L (3.4-5.1 MMOL/L) 3.4 - 5.1 MMOL/L [facility] Sodium [Moles/Vol] Sodium 139 MMOL/L (133-145 MMOL/L) 133 - 145 MMOL/L [facility] Troponin T.cardiac [Mass/Vol] HS Troponin T,Gen 5 6 NG/L (-<15 NG/L) LESS THAN Sex Specific Reference Range: Male (0-22), Female (0-14) Change(Delta) >=5 is significant Troponin Baseline and Serial elevation for significant change(delta)should be interpreted in conjunction with clinical presentation, history, signs and symptoms, ECG and biomarker concentrations. Troponin elevation can be seen in several other non-infarct conditions. Chronic troponin elevations can be detected in clinically stable patients with heart failure, cardiomyopathy, renal failure, diabetes, etc. Elevated troponin can also occur in myocarditis, heart contusion, PE, drug induced cardiotoxicity, etc. Samples should NOT be taken from patients receiving high dose biotin (> 5mg) doses until 8 hours following last biotin administration. [facility] Urea nitrogen [Mass/Vol] BUN 14 MG/DL (8-25 MG/DL) 8 - 25 MG/DL [facility] Urea nitrogen/Creatinine [Mass ratio] BUN Creatinine Ratio 15.6 RATIO (8-21 RATIO) 8 - 21 RATIO [facility] Laboratory - Hematology and Cell countson 02-14-2021 Basophils (Bld) [#/Vol] Abs Baso 0.01 K/UL (0.00-0.22 K/UL) 0.00 - 0.22 K/UL [facility] Basophils/100 WBC (Bld) Basophil 0.20 % (0-1 %) 0 - 1 % [facility] Differential cell count method Nom (Bld) Diff Type AUTO DIFF (Reference Range: not available) [facility] Eosinophils (Bld) [#/Vol] Abs Eos 0.01 K/UL (0-0.45 K/UL) 0 - 0.45 K/UL [facility] Eosinophils/100 WBC (Bld) Eosinophil 0.20 % (0-3 %) 0 - 3 % [facility] Erythrocyte distribution width (RBC) [Entitic vol] RDW SD 37.7 FL (37.0-54.0 FL) 37.0 - 54.0 FL [facility] Erythrocyte distribution width (RBC) [Ratio] RDW CV 12.4 % (11.7-15.0 %) 11.7 - 15.0 % [facility] Hematocrit (Bld) [Volume fraction] HCT 36.5 % L (41-50 %) Low 41 - 50 % [facility] Hemoglobin (Bld) [Mass/Vol] HGB 12.1 GM/DL L (13.5-16.5 GM/DL) Low 13.5 - 16.5 GM/DL [facility] Immature granulocytes (Bld) [#/Vol] Abs Imm Neut 0.04 K/UL (0.0-0.1 K/UL) 0.0 - 0.1 K/UL [facility] Lymphocytes (Bld) [#/Vol] Abs Lymph 1.23 K/UL (1.2-3.2 K/UL) 1.2 - 3.2 K/UL [facility] Lymphocytes/100 WBC (Bld) Lymphocyte 22.30 % (20-40 %) 20 - 40 % [facility] MCH (RBC) [Entitic mass] MCH 28.4 PG (26-34 PG) 26 - 34 PG [facility] MCHC (RBC) [Mass/Vol] MCHC 33.2 % (31-37 %) 31 - 37 % [facility] MCV (RBC) [Entitic vol] MCV 85.7 FL (80-100 FL) 80 - 100 FL [facility] Monocytes (Bld) [#/Vol] Abs Gage 0.41 K/UL (0-0.8 K/UL) 0 - 0.8 K/UL [facility] Monocytes/100 WBC (Bld) Monocyte 7.40 % (0-8 %) 0 - 8 % [facility] Neutrophils (Bld) [#/Vol] Abs.Neut.Calculated 3.82 K/UL (Reference Range: not available) Performed at [address] [address] [facility] Neutrophils (Bld) [#/Vol] Abs Neut 3.82 K/UL (1.8-7.7 K/UL) 1.8 - 7.7 K/UL [facility] Neutrophils.immature/ 100 WBC (Bld) Immature Neut % 0.70 % (0.0-1.0 %) 0.0 - 1.0 % [facility] Nucleated RBC/100 WBC (Bld) [Ratio] NRBCs 0 /100 WBC (0 /100 WBC) [facility] Platelet mean volume (Bld) [Entitic vol] MPV 12.0 CU (7.0-12.6 CU) 7.0 - 12.6 CU [facility] Platelets (Bld) [#/Vol] PLT 157 K/UL (150-450 K/UL) 150 - 450 K/UL [facility] RBC (Bld) [#/Vol] RBC 4.26 M/UL L (4.5 -5.5 M/UL) Low 4.5 - 5.5 M/UL [facility] Segmented neutrophils/100 WBC (Bld) Granulocyte 69.20 % (50-70 %) 50 - 70 % [facility] WBC (Bld) [#/Vol] WBC 5.5 K/UL (4.5-11 .0 K/UL) 4.5 - 11.0 K/UL [facility] No Panel Informationon 02-14 HS Troponin T Delta No previous result Performed at [address] [address] (0-4 ) 0 - 4 [facility] XR Chest Portable (1view) (Reference Range: not available) *FINAL Date of Service: 02/14/2021 20:43 Adm #: [id number] Reading Dr:GALA DIA Signoff Dr: GALA DIA PROCEDURE: CHEST PORTABLE - WXR 0018 REASON FOR EXAM: Patient believes he has a large air bubble in his esophagus. RESULT: CLINICAL HISTORY: Large air bubble at esophagus. COMPARISON: None. TECHNIQUE: AP chest FINDINGS: The cardiomediastinal silhouette is normal in size and contour. There is no evidence of pulmonary edema, pneumonia, pleural effusion or pneumothorax. Leadless medical transcription overlies the left chest.. IMPRESSION: An imaging explanation for the current clinical complaint is not identified [id number] This report has been produced using speech recognition. Original Interpreting Physician: GALA DIA MD Original Transcribed by/Date: PSCB Feb 14 2021 9:53P Original Electronically Signed by/Date: GALA DIA MD Feb 14 2021 9:53P Addendum Interpreting Physician: Addendum Transcribed by/Date: NO ADDENDUM Addendum Electronically Signed by/Date: [facility] Laboratory - Chemistry and C hemistry - challengeon 02-13-2021 Anion gap [Moles/Vol] 12 mmol/L 10 - 20 - Cardiology -[facility] [place] [address] Work Phone: Calcium [Mass/Vol] 8.7 mg/dL 8.6 - 10.3 -Car diology -[facility] [place] [facility] Work Phone: Chloride [Moles/Vol] 104 mmol/L 98 - 107 MP-C ardiology -[facility] [place] [address] Work Phone: CO2 [Moles/Vol] 26 mmol/L 21 - 32 MP-Cardio logy -[facility] [place] [address] Work Phone: Creatinine [Mass/Vol] 0.74 mg/dL See Below [facility] Cardiology -[facility] [place] [address] Work Phone: [phone] Comment on above: Reference Range: 0.5 0 - 1.30 Glucose [Mass/Vol] 102 mg/dL above high threshold 74 - 99 [facility] -[facility] [place] [address] Work Phone: Potassium [Moles/Vol] 3.9 mmol/L 3.5 - 5.3 [facility] Cardiology -[facility] [place] [address] Work Phone: Sodium [Moles/Vol] 138 mmol/L 136 - 145 -Car diology -[facility] [place] [address] Work Phone: Urea nitrogen [Mass/Vol] 12 mg/dL 6 - 23 [facility] -[facility] [place] [address] Work Phone: Laboratory - Hematology and Cell countson 02-13-2021 Erythrocyte distribution width (RBC) [Ratio] 12.5 % See Below [facility] [place] [address] Work Phone: Comment on above: Reference Range: 11. 5 - 14.5 Hematocrit (Bld) [Volume fraction] 38.6 % below low threshold See Below [facility] [place] [facility] Work Phone: Comment on above: Reference Range: 41. 0 - 52.0 Hemoglobin (Bld) [Mass/Vol] 12.4 g/dL below low threshold See Below [facility] 200 Work Phone: Comment on above: Reference Range: 13. 5 - 17.5 MCHC (RBC) [Mass/Vol] 32.1 g/dL See Below [facility] [employer] 200 Work Phone: Comment on above: Reference Range: 32. 0 - 36.0 MCV (RBC) [Entitic vol] 88 fL 80 - 100 [facility] Work Phone: Platelets (Bld) [#/Vol] 142 10*3/uL below low threshold 150 - 450 [facility] [employer] 200 Work Phone: [phone] RBC (Bld) [#/Vol] 4.37 {x10E12/L} below low threshold See Below [facility] [employer] 200 Work Phone: Comment on above: Reference Range: 4.5 0 - 5.90 WBC (Bld) [#/Vol] 3.5 10*3/uL below low threshold 4.4 - 11.3 [facility] [employer] 200 Work Phone: No Panel Informationon 02-13 [email or web address]?RetrieveTestByDateTim e?PjzjetpSM=[id number]&Da te=13-02-2021&Time=23%3a 04%3a50%3a00&TestType=EC G&Site=12&OutputType=PDF &Ext=PDF [facility] [email or web address] Work Phone: [phone] Normal sinus rhythm [facility] [email or web address] Work Phone: [phone] Abnormal [facility] [email or web address] Work Phone: [phone] 1 [facility] [email or web address] Work Phone: [phone] 1 [facility] [email or web address] Work Phone: [phone] 1 [facility] [email or web address] Work Phone: [phone] 1 [facility] [email or web address] Work Phone: [phone] 1 [facility] [email or web address] Work Phone: [phone] [facility] [email or web address] Work Phone: [phone] [facility] Corporate Work Phone: [phone] [facility] Work Phone: [phone] [facility] Work Phone: [phone] [facility] Work Phone: [phone] [facility] Work Phone: [phone] [facility] Work Phone: [phone] [facility] Work Phone: 0.0 {/100_WBC} 0.0 - 0.0 [facility] [employer] 200 Work Phone: [phone] [facility] [employer] 200 Work Phone: Comment on above: CALCULATIONS OF NIKOLE MATED GFR ARE PERFORMED USING THE MDRD STUDY EQUATION FOR THE IDMS-TRACEABLE CREATININE METHODS. CLIN CHEM 2007;53:766-72 CT Angio Cheston 02-12-2021 CTA Chest vessels Normal [facility] i[facility] -[facility] 200 Work Phone: Complete Blood Count + Diffe rentialon 02-12-2021 Basophils/100 WBC (Bld) 0.5 % 0.0 - 2.0 [facility] -[facility] 200 Work Phone: Erythrocyte distribution width (RBC) [Ratio] 12.6 % See Below [facility] 200 Work Phone: Comment on above: Reference Range: 11. 5 - 14.5 Hematocrit (Bld) [Volume fraction] 34.4 % below low threshold See Below [facility] 200 Work Phone: Comment on above: Reference Range: 41. 0 - 52.0 Hemoglobin (Bld) [Mass/Vol] 11.4 g/dL below low threshold See Below [facility] 200 Work Phone: Comment on above: Reference Range: 13. 5 - 17.5 Lymphocytes/100 WBC (Bld) 22.6 % See Below [employer] 200 Work Phone: Comment on above: Reference Range: 13. 0 - 44.0 MCHC (RBC) [Mass/Vol] 33.1 g/dL See Below [facility] 200 Work Phone: Comment on above: Reference Range: 32. 0 - 36.0 MCV (RBC) [Entitic vol] 86 fL 80 - 100 [facility] 200 Work Phone: Monocytes/100 WBC (Bld) 8.0 % 2.0 - 10.0 [facility] 200 Work Phone: Neutrophils/100 WBC (Bld) 67.5 % See Below [facility] 200 Work Phone: Comment on above: Reference Range: 40. 0 - 80.0 Platelets (Bld) [#/Vol] 141 10*3/uL below low threshold 150 - 450 [facility] 200 Work Phone: RBC (Bld) [#/Vol] 4.01 {x10E12/L} below low threshold See Below [facility] 200 Work Phone: Comment on above: Reference Range: 4.5 0 - 5.90 WBC (Bld) [#/Vol] 3.8 10*3/uL below low threshold 4.4 - 11.3 [facility] 200 Work Phone: Complete Blood Count + Differential 0.02 {x10E9/L} See Below [facility] 200 Work Phone: Comment on above: Reference Range: 0.0 0 - 0.10 Complete Blood Count + Differential 0.04 {x10E9/L} See Below [facility] 200 Work Phone: Comment on above: Reference Range: 0.0 0 - 0.70 Complete Blood Count + Differential 0.30 {x10E9/L} See Below [place] [address] Work Phone: Comment on above: Reference Range: 0.1 0 - 1.00 Complete Blood Count + Differential 0.85 {x10E9/L} below low threshold See Below [facility] 200 Work Phone: Comment on above: Reference Range: 1.2 0 - 4.80 Complete Blood Count + Differential 2.54 {x10E9/L} See Below [place] [address] Work Phone: Comment on above: Reference Range: 1.2 0 - 7.70 Complete Blood Count + Differential 1.1 % 0.0 - 6.0 [facility] [employer]com Work Phone: Complete Blood Count + Differential 0.3 % 0.0 - 0.9 [place] [address] Work Phone: Comment on above: Immature Granulocyte Count (IG) includes promyelocytes, myelocytes and metamyelocytes but does not include bands. Percent differential counts (%) should be interpreted in the context of the absolute cell counts (cells/L). Complete Blood Count + Differential 0.0 {/100_WBC} 0.0 - 0.0 [place] [address] Work Phone: Coronavirus 2019 RNA by PCR, Screening Asymptomticon 02-12-2021 Coronavirus 2019 RNA by PCR, Screening Asymptomtic Not detected Normal See Below [place] [address] Work Phone: Comment on above: SOURCE: Nasal, Nasop haryngealReference Range: Not Detected.This assay is designed to detect the ORF1ab and/or S genes of SARS-CoV-2 via nucleic acid amplification. A Not Detected result does not preclude 2019-nCoV infection since the adequacy of sample collection and/or low viral burden may result in presence of viral nucleic acids below the clinical sensitivity of this test method. Fact sheet for providers: www.fda.gov/media/889782/downloadFact sheet for patients: www.fda.gov/media/373013/downloadThis test has received FDA Emergency Use Authorization (EUA) and has been verified by [facility] ([facility]). This test is only authorized for the duration of time that circumstances exist to justify the authorization of the emergency use of in vitro diagnostic tests for the detection of SARS-CoV-2 virus and/or diagnosis of COVID-19 infection under section 564(b)(1) of the Act, 21 U.S.C. 360bbb-3(b)(1), unless the authorization is terminated or revoked sooner. [facility] is certified under CLIA-88 as qualified to perform high complexity testing. Testing is performed in the [facility] laboratories located at [address] [place] [address]. Laboratory - Chemistry and C hemistry - challengeon 02-12-2021 Albumin BCP dye [Mass/Vol] 3.9 g/dL 3.4 - 5.0 MP-[facility] [employer] 200 Work Phone: ALP [Catalytic activity/Vol] 42 U/L 33 - 120 [facility] 200 Work Phone: ALT With P-5'-P [Catalytic activity/Vol] 14 U/L 10 - 52 [facility] [place] [facility] Work Phone: Comment on above: Patients treated wit h Sulfasalazine may generate falsely decreased results for ALT. Anion gap [Moles/Vol] 10 mmol/L 10 - 20 MP- [facility] [email or web address] 200 Work Phone: AST With P-5'-P [Catalytic activity/Vol] 14 U/L 9 - 39 -[facility] 200 Work Phone: Bilirubin [Mass/Vol] 0.4 mg/dL 0.0 - 1.2 [facility] 200 Work Phone: Calcium [Mass/Vol] 8.3 mg/dL below low threshold 8.6 - 10.3 MP-[facility] [place] 200 Work Phone: Chloride [Moles/Vol] 105 mmol/L 98 - 107 MP-[facility] [place] 200 Work Phone: [phone] CO2 [Moles/Vol] 27 mmol/L 21 - 32 -Cardio logy -[facility] [place] 200 Work Phone: Creatinine [Mass/Vol] 0.92 mg/dL See Below [facility] 200 Work Phone: [phone] Comment on above: Reference Range: 0.5 0 - 1.30 Glucose [Mass/Vol] 94 mg/dL 74 - 99 -Car diology [facility] 200 Work Phone: Potassium [Moles/Vol] 4.0 mmol/L 3.5 - 5.3 [facility] 200 Work Phone: [phone] Protein [Mass/Vol] 6.2 g/dL below low threshold 6.4 - 8.2 [place] [address] Work Phone: [phone] Sodium [Moles/Vol] 138 mmol/L 136 - 145 -Car [facility] 200 Work Phone: [phone] Urea nitrogen [Mass/Vol] 12 mg/dL 6 - 23 [facility] 200 Work Phone: [phone] Laboratory - Coagulationon 0 02-12-2021 INR Coag (PPP) [Relative time] 1.0 {INR} 0.9 - 1.1 [place] [address] Work Phone: [phone] PT Coag (PPP) [Time] 11.9 s See Below -C ardiology -[facility] [place] 200 Work Phone: Comment on above: Reference Range: 10. 1 - 13.3 Laboratory - Drug toxicology on 02-12-2021 Amphetamines Screen Ql (U) Negative NEGATIVE [place] [address] Work Phone: Comment on above: CUTOFF LEVEL: 500 NG /ML Cross-reactivity has been reported with high concentrations of the following drugs: buproprion, chloroquine, chlorpromazine, ephedrine, mephentermine, fenfluramine, phentermine, phenylpropanolamine, pseudoephedrine, and propranolol. Barbiturates Screen Ql (U) Negative NEGATIVE MP-[facility]iology -[facility] 200 Work Phone: Comment on above: CUTOFF LEVEL: 200 NG /ML Benzodiazepines Ql (U) Negative NEGATIVE MP-[facility] -[facility] 200 Work Phone: Comment on above: CUTOFF LEVEL: 200 NG /ML Benzoylecgonine Screen Ql (U) Negative NEGATIVE MP-[facility] -[facility] 200 Work Phone: Comment on above: CUTOFF LEVEL: 150 NG /ML Cannabinoids Screen Ql (U) Negative NEGATIVE MP-[facility] -[facility] 200 Work Phone: Comment on above: CUTOFF LEVEL: 50 NG/ ML Methadone Screen Ql (U) Negative NEGATIVE MP-[facility]iology -[place] 200 Work Phone: Comment on above: CUTOFF LEVEL: 150 NG /ML The metabolite A-bjiga-gajxzzfzgkptrm (LAAM) is not detected by this method in concentrations that would be found in the urine of patients on LAAM therapy. Opiates Screen Ql (U) Negative NEGATIVE MP- Cardiology -[facility] 200 Work Phone: Comment on above: CUTOFF LEVEL: 300 NG /ML The opiate screen does not detect fentanyl, meperidine, or tramadol. Oxycodone is not consistently detected (refer to Oxycodone Screen, Urine result). oxyCODONE+oxyMORphone Screen Ql (U) Negative NEGATIVE MP-[facility]iology -[facility] 200 Work Phone: Comment on above: CUTOFF LEVEL: 100 NG /ML This test will accurately detect both oxycodone and oxymorphone. Phencyclidine Ql (U) Negative NEGATIVE MP-C ardiology -[place] [facility] 200 Work Phone: Comment on above: CUTOFF LEVEL: 25 NG/ ML Cross-reactivity has been reported with dextromethorphan. Magnesium, Serumon 1 Magnesium [Mass/Vol] 1.80 mg/dL See Below MP-C ardiology -[facility] 200 Work Phone: Comment on above: Reference Range: 1.6 0 - 2.40 No Panel Informationon 02-12 [email or web address] e?WowlptzEA=[id number]&Da te=12-02-2021&Time=18%3a 11%3a14%3a00&TestType=EC G&Site=12&OutputType=PDF &Ext=PDF [facility] Work Phone: [phone] Normal sinus rhythm [facility] Corporate Work Phone: [phone] Abnormal [facility] Work Phone: [phone] [facility] Work Phone: [phone] [facility] Work Phone: [phone] [facility] Work Phone: [phone] [facility] Work Phone: [phone] [facility] Work Phone: [phone] [facility] Work Phone: [phone] [facility] Work Phone: [phone] [facility] Work Phone: [phone] [facility] Work Phone: [phone] [facility] Work Phone: [phone] [facility] Work Phone: [phone] [facility] Work Phone: [phone] [facility] Work Phone: [phone] [facility] Work Phone: [phone] SEE BELOW -Cardiology -[facility] [place] 200 Work Phone: Comment on above: Drug screen results are presumptive and should not be used to assess compliance with prescribed medication. Contact the performing [facility] laboratory to add-on definitive confirmatory testing if clinically indicated. .Toxicology screening results are reported qualitatively. The concentration must be greater than or equal to the cutoff to be reported as positive. The concentration at which the screening test can detect an individual drug or metabolite varies. The absence of expected drug(s) and/or drug metabolite(s) may indicate non-compliance, inappropriate timing of specimen collection relative to drug administration, poor drug absorption, diluted/adulterated urine, or limitations of testing. For medical purposes only; not valid for forensic use. .Interpretive questions should be directed to the laboratory medical directors. 42 pg/mL 0 - 99 [facility] Work Phone: Comment on above: . <100 pg/mL - Heart failure [id number] pg/mL - Intermediate probability of acute heart. failure exacerbation. Correlate with clinical. context and patient history. >=300 pg/mL - Heart Failure likely. Correlate with clinical. context and patient history.BNP testing is performed using different testing methodology at [facility] than at other [facility]. Direct result comparisons should only be made within the same method. >60 >60 [employer] Work Phone: Comment on above: CALCULATIONS OF NIKOLE MATED GFR ARE PERFORMED USING THE MDRD STUDY EQUATION FOR THE IDMS-TRACEABLE CREATININE METHODS. CLIN CHEM 2007;53:766-72 [email or web address]?RetrieveTestByDateTim e?BfgwjadIK=[id number]&Da te=12-02-2021&Time=16%3a 31%3a11%3a00&TestType=EC G&Site=12&OutputType=PDF &Ext=PDF [facility] [email or web address] Work Phone: [phone] Normal sinus rhythm [facility] Work Phone: [phone] [facility] [email or web address] Work Phone: [phone] [facility] [email or web address] Work Phone: [phone] [facility] [email or web address] Work Phone: [phone] [facility] [email or web address] Work Phone: [phone] [facility] [email or web address] Work Phone: [phone] [facility] [email or web address] Work Phone: [phone] [facility] [employer] Work Phone: [phone] [facility] Work Phone: [phone] [facility] Work Phone: [phone] [facility] Work Phone: [phone] [facility] [email or web address] Work Phone: [phone] [facility] Work Phone: [phone] [facility] Work Phone: [phone] [facility] Work Phone: [phone] [facility] [email or web address] Work Phone: Troponin I, Serumon 02-13-20 21 Troponin I.cardiac [Mass/Vol] ng/mL See Below [employer] 200 Work Phone: Comment on above: Reference Range: 0.0 0 - 0.03LESS THAN 0.04 NG/ML: NEGATIVEREPEAT TESTING IN THREE TO SIX HOURSIF CLINICALLY INDICATED.0.04 - 0.5 NG/ML: CONSISTENT WITH POSSIBLECARDIAC DAMAGE AND POSSIBLE INCREASEDCLINICAL RISK.SERIAL MEASUREMENTS MAY HELP ASSESS EXTENT OFMYOCARDIAL DAMAGE.>0.5 NG/ML: CONSISTENT WITH CARDIAC DAMAGE,INCREASED CLINICAL RISK AND MYOCARDIALINFARCTION. SERIAL MEASUREMENTS MAY HELPASSESS EXTENT OF MYOCARDIAL DAMAGE..Note: Troponin I testing is performed using different testing methodology at [facility] than at other [facility]. Direct result comparisons should only be made within the same method. Troponin I.cardiac [Mass/Vol] ng/mL See Below [employer] Work Phone: Comment on above: Reference Range: 0.0 0 - 0.03LESS THAN 0.04 NG/ML: NEGATIVEREPEAT TESTING IN THREE TO SIX HOURSIF CLINICALLY INDICATED.0.04 - 0.5 NG/ML: CONSISTENT WITH POSSIBLECARDIAC DAMAGE AND POSSIBLE INCREASEDCLINICAL RISK.SERIAL MEASUREMENTS MAY HELP ASSESS EXTENT OFMYOCARDIAL DAMAGE.>0.5 NG/ML: CONSISTENT WITH CARDIAC DAMAGE,INCREASED CLINICAL RISK AND MYOCARDIALINFARCTION. SERIAL MEASUREMENTS MAY HELPASSESS EXTENT OF MYOCARDIAL DAMAGE..Note: Troponin I testing is performed using different testing methodology at [facility] than at other [facility]. Direct result comparisons should only be made within the same method. Troponin I.cardiac [Mass/Vol] ng/mL See Below [employer] Work Phone: Comment on above: Reference Range: 0.0 0 - 0.03LESS THAN 0.04 NG/ML: NEGATIVEREPEAT TESTING IN THREE TO SIX HOURSIF CLINICALLY INDICATED.0.04 - 0.5 NG/ML: CONSISTENT WITH POSSIBLECARDIAC DAMAGE AND POSSIBLE INCREASEDCLINICAL RISK.SERIAL MEASUREMENTS MAY HELP ASSESS EXTENT OFMYOCARDIAL DAMAGE.>0.5 NG/ML: CONSISTENT WITH CARDIAC DAMAGE,INCREASED CLINICAL RISK AND MYOCARDIALINFARCTION. SERIAL MEASUREMENTS MAY HELPASSESS EXTENT OF MYOCARDIAL DAMAGE..Note: Troponin I testing is performed using different testing methodology at [facility]. Direct result comparisons should only be made within the same method. Troponin I.cardiac [Mass/Vol] ng/mL See Below [employer] Work Phone: Comment on above: Reference Range: 0.0 0 - 0.03LESS THAN 0.04 NG/ML: NEGATIVEREPEAT TESTING IN THREE TO SIX HOURSIF CLINICALLY INDICATED.0.04 - 0.5 NG/ML: CONSISTENT WITH POSSIBLECARDIAC DAMAGE AND POSSIBLE INCREASEDCLINICAL RISK.SERIAL MEASUREMENTS MAY HELP ASSESS EXTENT OFMYOCARDIAL DAMAGE.>0.5 NG/ML: CONSISTENT WITH CARDIAC DAMAGE,INCREASED CLINICAL RISK AND MYOCARDIALINFARCTION. SERIAL MEASUREMENTS MAY HELPASSESS EXTENT OF MYOCARDIAL DAMAGE..Note: Troponin I testing is performed using different testing methodology at [facility] than at other [facility]. Direct result comparisons should only be made within the same method. Troponin I.cardiac [Mass/Vol] Canceled [employer] Work Phone: Comment on above: LESS THAN 0.04 NG/ML : NEGATIVEREPEAT TESTING IN THREE TO SIX HOURSIF CLINICALLY INDICATED.0.04 - 0.5 NG/ML: CONSISTENT WITH POSSIBLECARDIAC DAMAGE AND POSSIBLE INCREASEDCLINICAL RISK.SERIAL MEASUREMENTS MAY HELP ASSESS EXTENT OFMYOCARDIAL DAMAGE.>0.5 NG/ML: CONSISTENT WITH CARDIAC DAMAGE,INCREASED CLINICAL RISK AND MYOCARDIALINFARCTION. SERIAL MEASUREMENTS MAY HELPASSESS EXTENT OF MYOCARDIAL DAMAGE..Note: Troponin I testing is performed using different testing methodology at [facility] than [facility]. Direct result comparisons should only be made within the same method. Urinalysison 02-12-2021 Color (U) COLORLESS See Below [facility] 200 Work Phone: Comment on above: Reference Range: STR AW,YELLOW Glucose Ql (U) Negative NEGATIVE [facility] [email or web address] 200 Work Phone: [phone] Ketones Ql (U) Negative NEGATIVE [facility] -[place] [email or web address] 200 Work Phone: Leukocyte esterase Test strip Ql (U) Negative NEGATIVE [facility] 200 Work Phone: pH (U) 6.0 [pH] 5.0 - 8.0 [facility] 200 Work Phone: Protein (U) [Mass/Vol] Negative NEGATIVE [facility] [email or web address] 200 Work Phone: RBC (U) [#/Vol] Negative NEGATIVE [facility] 200 Work Phone: Specific gravity (U) [Rel density] 1.003 1 below low threshold See Below [facility] [email or web address] 200 Work Phone: Comment on above: Reference Range: 1.0 05 - 1.035 Urinalysis Negative NEGATIVE [facility] [email or web address] 200 Work Phone: Comment on above: CUTOFF LEVEL: 1 NG/M L Urinalysis <2.0 0.0 - 1.9 [facility] 200 Work Phone: Urinalysis CLEAR CLEAR [facility] 200 Work Phone: ALC ETHANOLon 02-10-2021 ALC ETHANOL 24.0 mg/dL High <10.0 [facility] Comment on above: Result Comment: UNCO NFIRMED Toxicology results. For MEDICAL purposes only. Performed By: #### L 500.62935, L500.50896, L500.90703, L500.52038, L500.75384 #### Test performed at: [address] [address] CBC W/DIFFon 02-10-2021 BASO ABS 0.0 K/uL Normal 0.0-0.2 [facility] Comment on above: Performed By: #### L 200.92367 #### Test performed at: [address] [address] Basophils/100 WBC (Bld) 0.5 % Normal [facility] Comment on above: Performed By: #### L 200.66221 #### Test performed at: [address] [address] EOS ABS 0.1 K/uL Normal 0.0-0.5 [facility] Comment on above: Performed By: #### L 200.31216 #### Test performed at: [address] [address] Eosinophils/100 WBC (Bld) 2.4 % Normal [facility] Comment on above: Performed By: #### L 200.18187 #### Test performed at: [address] [address] Erythrocyte distribution width (RBC) [Ratio] 12.3 % Normal 11.5-14.5 [facility] Comment on above: Performed By: #### L 200.48903 #### Test performed at: [address] [address] Hematocrit (Bld) [Volume fraction] 36.3 % Low 39.0-55.0 [facility] Comment on above: Performed By: #### L 200.86665 #### Test performed at: [address] [address] Hemoglobin (Bld) [Mass/Vol] 12.1 g/dL Low 14.0-16.5 [facility] Comment on above: Performed By: #### L 200.96327 #### Test performed at: [place] [address] [address] IG % 0.5 % Normal [facility] Comment on above: Performed By: #### L 200.22103 #### Test performed at: [address] [address] IG ABS 0.02 K/uL Normal 0-0.05 [facility] Comment on above: Performed By: #### L 200.27670 #### Test performed at: [place] [id number] Lymphocytes (Bld) [#/Vol] 1.3 10*3/uL Normal 1.2-3.5 [facility] Comment on above: Performed By: #### L 200.40657 #### Test performed at: [place] [id number] Lymphocytes/100 WBC (Bld) 35.9 % Normal [facility] Comment on above: Performed By: #### L 200.73507 #### Test performed at: [place] [address] MCH (RBC) [Entitic mass] 28.5 pg Normal 25.4-34.6 [facility] Comment on above: Performed By: #### L 200.21375 #### Test performed at: [address] [address] MCHC (RBC) [Mass/Vol] 33.3 g/dL Normal 31.5-36.5 [facility] Comment on above: Performed By: #### L 200.47638 #### Test performed at: [address] [address] MCV (RBC) [Entitic vol] 85.4 fL Normal 80.0-100.0 [facility] Comment on above: Performed By: #### L 200.94600 #### Test performed at: [address] [address] MONO ABS 0.3 K/uL Normal 0.0-1.0 [facility] Comment on above: Performed By: #### L 200.34578 #### Test performed at: [address] [address] Monocytes/100 WBC (Bld) 8.6 % Normal [facility] Comment on above: Performed By: #### L 200.13536 #### Test performed at: [place] [id number] NEUTROPHIL ABS 1.9 K/uL Normal 1.4-6.6 [facility] Comment on above: Performed By: #### L 200.84381 #### Test performed at: [address] [address] Neutrophils/100 WBC (Bld) 52.1 % Normal [facility] Comment on above: Performed By: #### L 200.89414 #### Test performed at: [address] [address] NRBC # 0.000 K/uL Normal 0-0.012 [facility] Comment on above: Performed By: #### L 200.79194 #### Test performed at: [address] [address] NRBC % 0.0 /100 WBC Normal 0-0.2 [facility] Comment on above: Performed By: #### L 200.12195 #### Test performed at: [address] [address] Platelet mean volume (Bld) [Entitic vol] 11.6 fL Normal 8.7-12.4 [facility] Comment on above: Performed By: #### L 200.00488 #### Test performed at: [address] [address] Platelets (Bld) [#/Vol] 147 10*3/uL Normal 140-440 [facility] Comment on above: Performed By: #### L 200.72159 #### Test performed at: [address] [address] RBC (Bld) [#/Vol] 4.25 10*6/uL Normal 3.5-5.5 [facility] Comment on above: Performed By: #### L 200.51469 #### Test performed at: [address] [address] WBC (Bld) [#/Vol] 3.7 10*3/uL Low 3.9-11.0 [facility] Comment on above: Performed By: #### L 200.80994 #### Test performed at: [address] [address] CKon 02-10-2021 CK [Catalytic activity/Vol] 44 U/L Normal 39-308 [facility] Comment on above: Performed By: #### L 500.26200, L500.93794, L500.93428, L500.55940, L500.27747 #### Test performed at: [address] [address] COMP META PANELon 02-10-2021 Albumin [Mass/Vol] 3.6 g/dL Normal 3.4-5.0 [facility] Comment on above: Performed By: #### L 500.54967, L500.56974, L500.81224, L500.92135, L500.86739 #### Test performed at: [address] [address] ALK PHOS TOTAL 49 U/L Normal 45-117 [facility] Comment on above: Performed By: #### L 500.67123, L500.56476, L500.42664, L500.21336, L500.27136 #### Test performed at: [address] [address] ALT [Catalytic activity/Vol] 25 U/L Normal 13-61 [facility] Comment on above: Performed By: #### L 500.72257, L500.72480, L500.42918, L500.13007, L500.26093 #### Test performed at: [address] [address] AST [Catalytic activity/Vol] 9 U/L Low 15-37 [facility] Comment on above: Performed By: #### L 500.33925, L500.03977, L500.90509, L500.89768, L500.87546 #### Test performed at: [address] [address] BILI TOTAL 0.3 mg/dL Normal 0.2-1.0 [facility] Comment on above: Performed By: #### L 500.99071, L500.54689, L500.37735, L500.63948, L500.13422 #### Test performed at: [address] [address] Calcium [Mass/Vol] 8.4 mg/dL Low 8.5-10.1 [facility] Comment on above: Performed By: #### L 500.85314, L500.85717, L500.12897, L500.29043, L500.46032 #### Test performed at: [address] [address] Chloride [Moles/Vol] 105 mmol/L Normal 98-107 [facility] Comment on above: Performed By: #### L 500.86857, L500.59949, L500.31123, L500.45686, L500.45499 #### Test performed at: [address] [address] CO2 [Moles/Vol] 23 mmol/L Normal 21-32 [facility] Comment on above: Performed By: #### L 500.92589, L500.73438, L500.29877, L500.06589, L500.34446 #### Test performed at: [address] [address] Creatinine [Mass/Vol] 0.890 mg/dL Normal 0.700-1.300 [facility] Comment on above: Performed By: #### L 500.94964, L500.05977, L500.07520, L500.49110, L500.76534 #### Test performed at: [address] [address] Glucose [Mass/Vol] 91 mg/dL Normal 70-99 [facility] Comment on above: Result Comment: Fast ing GLUCOSE reference range has been updated per (ADA) [place] [employer]'s recommendation. 12/16/2018 Performed By: #### L 500.94972, L500.23346, L500.08844, L500.15894, L500.23693 #### Test performed at: [address] [address] Potassium [Moles/Vol] 3.8 mmol/L Normal 3.5-5.1 [facility] Comment on above: Performed By: #### L 500.48465, L500.91379, L500.53429, L500.87234, L500.21989 #### Test performed at: [address] [address] Protein [Mass/Vol] 6.7 g/dL Normal 6.4-8.2 [facility] Comment on above: Performed By: #### L 500.39944, L500.13383, L500.16533, L500.10990, L500.43185 #### Test performed at: [place] [address] Sodium [Moles/Vol] 138 mmol/L Normal 136-145 [facility] Comment on above: Performed By: #### L 500.79187, L500.54905, L500.65916, L500.50728, L500.49929 #### Test performed at: [place] [address] Urea nitrogen [Mass/Vol] 17 mg/dL Normal 7-18 [facility] Comment on above: Performed By: #### L 500.19708, L500.59452, L500.51296, L500.31432, L500.25046 #### Test performed at: [place] [address] ED Provider Reporton 021 ED Provider Report [facility] Pt Name: HOSEA ALVAREZ MR#: [id number] [address] [place] [address] ACCT: [id number] : 72 EMERGENCY PROVIDER REPORT ADM Date: 02/09/21 ER Physician: Gordon Wade MD History of Present Illness Time Seen by 0321 Source of Information PATIENT Triage Complaint CHEST PAIN Chief Complaint Chest pain Symptom Onset Tonight Travel Out of [place] in last month No History of Present Illness This patient is a 50-year-old male who presents to the ED with chest pain. The onset was tonight. The patient states his pain is substernal nonradiating. There are no aggravating or alleviating symptoms. The patient was seen at the [facility] over the last 24 hours. The work-up was negative. The patient now returns complaining of chest pain. The patient had a negative Covid test 2 days ago. The patient was sleeping on examination. The patient admits to drinking alcohol today. Past Medical History Past Medical History Reports HTN Past Med Hx - Other Renal stenosis, thoracic aneurysm PSH None Family History Hypertension Past Social History Tobacco Use NONE Alcohol YES Frequency OCCASIONALLY Drug Use NO Occupation Unemployed Review of Systems Review of Systems Allergies Uncoded Allergies: CAFFINE (02/09/21) Nursing Notes Reviewed Yes Medications Reviewed I have reviewed the patient's Home Medication List Constitutional Recent Illness, Denies Fever, Denies Chills, Denies Diaphoresis, Denies Weakness, Denies Weight loss EENT Denies: Vision Change, Vision Problems, Sore Throat, Dental Problems, Nasal Congestion, Nasal Drainage. CVS/Pulmonary Chest pain, Denies Hurts to breath, Denies Shortness of breath, Denies Cough GI/ Denies: Abdominal Pain, Nausea, Vomiting, Diarrhea, Black Stools, Bloody Stools, Problems Urinating, Painful Urination. MS/SKIN/LYMPH Denies Extremity Pain, Denies Calf Pain, Denies Leg Pain, Denies Neck Pain, Denies Back Pain, Denies Joint Pain, Denies Ankle Swelling, Denies Leg Swelling, Denies Rash, Denies Swollen Glands Neuro/Psych Confusion, Denies Headache, Denies Fainting, Denies Dizzy, Denies Loss of Sensation, Denies Weakness, Denies Difficulty Walking, Denies Difficulty with Speech ROS ROS: All other systems reviewed and are negative. Physical Exam Vital Signs Vital Signs Reviewed Yes Vital Signs Vital Signs Verdana 4d Date Time Temp Pulse Resp B/P B/P Pulse O2 O2 Flow FiO2 Mean Ox Delivery Rate 02/10 0128 71 20 94/58 99 02/09 2323 36.5 70 20 116/71 97 Appearance General Appearance Appears well, Alert, No Distress. Neuro Neuro Oriented x 3, Speech Clear, Moves all extremities Neck NECK Nml Inspection, No Lymphadenopathy HEENT HEENT Head Atraumatic, Eyes Nml Inspection, Hearing grossly normal, No Signs of Dehydration, Mucosa Moist Respiratory Respiratory Lungs sounds clear, Respirations nonlabored, Symmetrical expansion CVS Cardiovascular Rate WNL, Normal heart sounds Abdomen/Pelvis Abdomen/GI Bowel Sounds Present, Abdomen soft, Non-Tender, No distention Extremity Extremity Normal Appearance, Full ROM, Sensation Intact, Motor Intact, No Vasc Compromise, Tendon Function NML, No tenderness, No Pedal Edema, Normal Gait Skin Skin Color Nml, Warm, Dry Medical Decision Making Diagnostics Labs Laboratory Tests Verdana 4d 02/10 02/09 0035 0813 Chemistry Sodium (136 - 145 mmol/L) 138 Potassium (3.5 - 5.1 mmol/L) 3.8 Chloride (98 - 107 mmol/L) 105 Carbon Dioxide (21 - 32 mmol/L) 23 BUN (7 - 18 mg/dL) 17 Creatinine (0.700 - 1.300 mg/dL) 0.890 Est GFR ( Amer) (> 60) > 60 Est GFR (Non-Af Amer) (> 60) > 60 Glucose (70 - 99 mg/dL) 91 Total Calcium (8.5 - 10.1 mg/dL) 8.4 L Total Bilirubin (0.2 - 1.0 mg/dL) 0.3 AST (15 - 37 U/L) 9 L ALT (13 - 61 U/L) 25 Alkaline Phosphatase (45 - 117 U/L) 49 Creatine Kinase (39 - 308 U/L) 44 Troponin I (0.01 - 0.045 ng/mL) < 0.015 Serum Total Protein (6.4 - 8.2 gm/dL) 6.7 Albumin (3.4 - 5.0 gm/dL) 3.6 ematology WBC (3.9 - 11.0 K/uL) 3.7 L RBC (3.5 - 5.5 M/uL) 4.25 Hgb (14.0 - 16.5 g/dL) 12.1 L Hct (39.0 - 55.0 %) 36.3 L MCV (80.0 - 100.0 fL) 85.4 MCH (25.4 - 34.6 pg) 28.5 MCHC (31.5 - 36.5 g/dL) 33.3 RDW (11.5 - 14.5 %) 12.3 Plt Count (140 - 440 K/uL) 147 MPV (8.7 - 12.4 fL) 11.6 Immature Gran % (Auto) (%) 0.5 Neut % (Auto) (%) 52.1 Lymph % (Auto) (%) 35.9 Gage % (Auto) (%) 8.6 Eos % (Auto) (%) 2.4 Baso % (Auto) (%) 0.5 Neut # (Auto) (1.4 - 6.6 K/uL) 1.9 Lymph # (Auto) (1.2 - 3.5 K/uL) 1.3 Gage # (Auto) (0.0 - 1.0 K/uL) 0.3 Eos # (Auto) (0.0 - 0.5 K/uL) 0.1 Baso # (Auto) (0.0 - 0.2 K/uL) 0.0 Immature Gran # (Auto) (0 - 0.05 K/uL) 0.02 Nucleated RBC % (0 - 0.2 /100 WBC) 0.0 Nucleated RBCs # (0 - 0.012 K/uL) 0.000 oxicology Urine Opiates Screen (Negative) NEGATIVE Ur Buprenorphine Scrn (Negative) NEGATIV (more content not included)... Normal [facility] EKGon 02-10-2021 Electrocardiogram Acquired on 02/10/20 21 2320 Vent. Rate : 071 BPM Atrial Rate : 071 BPM P-R Int : 172 ms QRS Dur : 100 ms QT Int : 364 ms P-R-T Axes : 042 004 010 degrees QTc Int : 395 ms Normal sinus rhythm Normal ECG No previous ECGs available Confirmed by NATIVIDAD POTTS MD ([id number]) on 02/14/2021 12:14:07 PM Referred By: Confirmed By:NATIVIDAD POTTS MD [id number] 2020 [facility] PT NAME: HOSEA ALVAREZ MR#: [id number] [address] [place] [address] ACCT: [id number] : 72 EKG REPORT Normal [facility] GFR ESTIMATEon 02-10-2021 IF AMER > 60 Normal > [address] [facility] Comment on above: Result Comment: eGFR (Estimated GFR) Units of measure:mL/min/1.73 meters sq. *CALCULATION REVISED 07/12/2015;IDMS-traceable MDRD equation eGFR is derived from the reexpressed MDRD Study equation using the following parameters: serum creatinine, age, gender and race. An eGFR<60 mL/min/1.73m2 for >3 months is consistent with chronic kidney disease. Refer to KDOQI guidelines for clinical interpretation. Performed By: #### L 500.34247, L500.81418, L500.34634, L500.15125, L500.29415 #### Test performed at: [place] [address] IF non-AFR AMER > 60 Normal > [address] [facility] Comment on above: Performed By: #### L 500.17549, L500.64261, L500.84533, L500.16262, L500.57019 #### Test performed at: [place] [address] LIMIT UR TOXon 02-10-2021 UR AMPH Negative Normal Negative [facility] Comment on above: Result Comment: CUTO JU=[id number] Performed By: #### L 600.68796 #### Test performed at: [place] [address] UR CIELO Negative Normal Negative [facility] Comment on above: Result Comment: CUTO KE=721 Performed By: #### L 600.36874 #### Test performed at: [place] [address] UR KAYA Negative Normal Negative [facility] Comment on above: Result Comment: CUTO ZJ=217 Performed By: #### L 600.44953 #### Test performed at: [place] [address] UR BUPREN/NORBU Negative Normal Negative [facility] Comment on above: Result Comment: CUTO FF=10 Performed By: #### L 600.13749 #### Test performed at: [place] [address] UR LULY/THC Negative Normal Negative [facility] Comment on above: Result Comment: CUTO FF=50 Performed By: #### L 600.76367 #### Test performed at: [address] [address] UR CHATO Negative Normal Negative [facility] Comment on above: Result Comment: CUTO EC=019 Performed By: #### L 600.81767 #### Test performed at: [place] [id number] UR ECSTASY Negative Normal Negative [facility] Comment on above: Result Comment: CUTO YB=201 Performed By: #### L 600.35070 #### Test performed at: [place] [address] UR FENTANYL Negative Normal Negative [facility] Comment on above: Result Comment: CUTO QW=1137 Performed By: #### L 600.04510 #### Test performed at: [place] [address] UR METH Negative Normal Negative [facility] Comment on above: Result Comment: CUTO FG=751 Performed By: #### L 600.30714 #### Test performed at: [place] [address] UR OPIAT Negative Normal Negative [facility] Comment on above: Result Comment: CUTO DY=150 Performed By: #### L 600.42375 #### Test performed at: [address] [address] UR OXYCODONE Negative Normal Negative [facility] Comment on above: Result Comment: CUTO QF=522 Performed By: #### L 600.17929 #### Test performed at: [place] [id number] UR PCP Negative Normal Negative [facility] Comment on above: Result Comment: CUTO FF=25 Performed By: #### L 600.47474 #### Test performed at: [place] [address] PH TOX 5.0 Normal 5.0-8.0 [facility] Comment on above: Performed By: #### L 600.93045 #### Test performed at: [place] [address] TOX COMMENT *PLEASE NOTE: Normal [facility] Comment on above: Result Comment: UNCO NFIRMED Toxicology results. For MEDICAL purposes only. Performed By: #### L 600.78789 #### Test performed at: [place] [address] PORTABLE CHESTon 02-10-2021 PORTABLE CHEST STUDY: PORTABLE CHEST; 02/09/2021 11:25 pm INDICATION: CHEST PAIBN. COMPARISON: 02/08/2021 ACCESSION NUMBER(S): [id number] ORDERING CLINICIAN: Gordon Wade FINDINGS: The cardiomediastinal silhouette and pulmonary vasculature are within normal limits. No consolidation, pleural effusion, or pneumothorax. IMPRESSION: No acute cardiopulmonary process. Normal [facility] TROPONIN QUANTon 02-10-2021 TROPONIN I < 0.015 Normal 0.01-0.045 [facility] Comment on above: Performed By: #### L 500.97368, L500.89692, L500.22480, L500.62605, L500.56365 #### Test performed at: [address] [address] BASIC METABOLIC PANELon 01-21 Anion gap [Moles/Vol] 12 mmol/L Normal 10 - 20 [facility] Comment on above: Performed By: #### B MP #### [facility] [address] [place] [address] Calcium [Mass/Vol] 9.5 mg/dL Normal 8.6 - 10.3 [facility] Comment on above: Performed By: #### B MP #### [address] [address] Chloride [Moles/Vol] 103 mmol/L Normal 98 - 107 [facility] Comment on above: Performed By: #### B MP #### [address] [place] [address] Creatinine [Mass/Vol] 0.79 mg/dL Normal 0.50 - 1.30 [facility] Comment on above: Performed By: #### B MP #### [address] [address] GFR- AM. >60 Normal >60 [facility] Comment on above: Result Comment: CALC ULATIONS OF ESTIMATED GFR ARE PERFORMED USING THE MDRD STUDY EQUATION FOR THE IDMS-TRACEABLE CREATININE METHODS. CLIN CHEM 2007;53:766-72 Performed By: #### B MP #### [address] [address] GFR-NON AM. >60 Normal >60 [facility] Comment on above: Performed By: #### B MP #### [address] [address] Glucose [Mass/Vol] 95 mg/dL Normal 74 - 99 [facility] Comment on above: Performed By: #### B MP #### [address] [address] HCO3 (Bld) [Moles/Vol] 25 mmol/L Normal 21 - 32 [facility] Comment on above: Performed By: #### B MP #### [address] [address] Potassium [Moles/Vol] 4.0 mmol/L Normal 3.5 - 5.3 [facility] Comment on above: Performed By: #### B MP #### [address] [address] Sodium [Moles/Vol] 136 mmol/L Normal 136 - 145 [facility] Comment on above: Performed By: #### B MP #### [address] [address] Urea nitrogen [Mass/Vol] 16 mg/dL Normal 6 - 23 [facility] Comment on above: Performed By: #### B MP #### [address] [address] CBC AND DIFFERENTIALon 02-08 % AUTOMATED IMMATURE GRAN 0.2 % Normal 0.0 - 0.9 [facility] Comment on above: Result Comment: Kath ture Granulocyte Count (IG) includes promyelocytes, myelocytes and metamyelocytes but does not include bands. Percent differential counts (%) should be interpreted in the context of the absolute cell counts (cells/L). Performed By: #### C BCDF #### [address] [address] Basophils (Bld) [#/Vol] 0.01 10*3/uL Normal 0.00 - 0.10 [facility] Comment on above: Performed By: #### C BCDF #### [address] [address] Basophils/100 WBC (Bld) 0.2 % Normal 0.0 - 2.0 [facility] Comment on above: Performed By: #### C BCDF #### [address] [address] Eosinophils (Bld) [#/Vol] 0.01 10*3/uL Normal 0.00 - 0.70 [facility] Comment on above: Performed By: #### C BCDF #### [address] [address] Eosinophils/100 WBC (Bld) 0.2 % Normal 0.0 - 6.0 [facility] Comment on above: Performed By: #### C BCDF #### [address] [address] Erythrocyte distribution width (RBC) [Ratio] 12.3 % Normal 11.5 - 14.5 [facility] Comment on above: Performed By: #### C BCDF #### [address] [address] Hematocrit (Bld) [Volume fraction] 42.2 % Normal 41.0 - 52.0 [facility] Comment on above: Performed By: #### C BCDF #### [address] [address] Hemoglobin (Bld) [Mass/Vol] 14.1 g/dL Normal 13.5 - 17.5 [facility] Comment on above: Performed By: #### C BCDF #### [address] [address] Lymphocytes (Bld) [#/Vol] 0.89 10*3/uL Low 1.20 - 4.80 [facility] Comment on above: Performed By: #### C BCDF #### [address] [address] Lymphocytes/100 WBC (Bld) 18.2 % Normal 13.0 - 44.0 [facility] Comment on above: Performed By: #### C BCDF #### [address] [address] MCHC (RBC) [Mass/Vol] 33.4 g/dL Normal 32.0 - 36.0 [facility] Comment on above: Performed By: #### C BCDF #### [address] [address] MCV (RBC) [Entitic vol] 85 fL Normal 80 - 100 [facility] Comment on above: Performed By: #### C BCDF #### [address] [address] Monocytes (Bld) [#/Vol] 0.34 10*3/uL Normal 0.10 - 1.00 [facility] Comment on above: Performed By: #### C BCDF #### [address] [address] Monocytes/100 WBC (Bld) 7.0 % Normal 2.0 - 10.0 [facility] Comment on above: Performed By: #### C BCDF #### [address] [address] Neutrophils (Bld) [#/Vol] 3.63 10*3/uL Normal 1.20 - 7.70 [facility] Comment on above: Performed By: #### C BCDF #### [address] [address] Neutrophils/100 WBC (Bld) 74.2 % Normal 40.0 - 80.0 [facility] Comment on above: Performed By: #### C BCDF #### [facility] [address] [place] [address] NUCLEATED RBC 0.0 /100 WBC Normal 0.0 - 0.0 [facility] Comment on above: Performed By: #### C BCDF #### [facility] [address] [place] [address] Platelets (Bld) [#/Vol] 197 10*3/uL Normal 150 - 450 [facility] Comment on above: Performed By: #### C BCDF #### [facility] [address] [place] [address] RBC 4.98 x10E12/L Normal 4.50 - 5.90 [facility] Comment on above: Performed By: #### C BCDF #### [facility] [address] [place] [address] WBC (Bld) [#/Vol] 4.9 10*3/uL Normal 4.4 - 11.3 [facility] Comment on above: Performed By: #### C BCDF #### [facility] [address] [place] [address] CHEST 1 VIEWon 02-08-2021 CHEST 1 VIEW Patient Name: HOSEA ALVAREZ STUDY: CHEST 1 VIEW; 02/08/2021 12:45 pm INDICATION: Chest Pain. COMPARISON: 02/02/2021 ACCESSION NUMBER(S): [id number] ORDERING CLINICIAN: RASHAUN DELGADILLO TECHNIQUE: Portable upright frontal view of the chest FINDINGS: Mediastinum is negative. Cardiac silhouette is enlarged. Lungs are clear. IMPRESSION: Lungs are clear. Electronically signed by: NORMA UP MD Normal [facility] Complete Blood Count + Diffe rentialon 02-08-2021 Basophils/100 WBC (Bld) 0.2 % 0.0 - 2.0 -Cardiology -[facility] Work Phone: Erythrocyte distribution width (RBC) [Ratio] 12.3 % See Below [facility] Work Phone: Comment on above: Reference Range: 11. 5 - 14.5 Hematocrit (Bld) [Volume fraction] 42.2 % See Below [facility] 200 Work Phone: Comment on above: Reference Range: 41. 0 - 52.0 Hemoglobin (Bld) [Mass/Vol] 14.1 g/dL See Below [facility] 200 Work Phone: Comment on above: Reference Range: 13. 5 - 17.5 Lymphocytes/100 WBC (Bld) 18.2 % See Below [facility] 200 Work Phone: [phone] Comment on above: Reference Range: 13. 0 - 44.0 MCHC (RBC) [Mass/Vol] 33.4 g/dL See Below [facility] 200 Work Phone: Comment on above: Reference Range: 32. 0 - 36.0 MCV (RBC) [Entitic vol] 85 fL 80 - 100 [facility] 200 Work Phone: Monocytes/100 WBC (Bld) 7.0 % 2.0 - 10.0 [facility] 200 Work Phone: Neutrophils/100 WBC (Bld) 74.2 % See Below [facility] 200 Work Phone: [phone] Comment on above: Reference Range: 40. 0 - 80.0 Platelets (Bld) [#/Vol] 197 10*3/uL 150 - 450 [facility] 200 Work Phone: RBC (Bld) [#/Vol] 4.98 {x10E12/L} See Below [facility] 200 Work Phone: Comment on above: Reference Range: 4.5 0 - 5.90 WBC (Bld) [#/Vol] 4.9 10*3/uL 4.4 - 11.3 [facility] Work Phone: Complete Blood Count + Differential 0.01 {x10E9/L} See Below [employer] Work Phone: Comment on above: Reference Range: 0.0 0 - 0.10 Reference Range: 0.0 0 - 0.70 Complete Blood Count + Differential 0.34 {x10E9/L} See Below [employer] Work Phone: [phone] Comment on above: Reference Range: 0.1 0 - 1.00 Complete Blood Count + Differential 0.89 {x10E9/L} below low threshold See Below [employer] Work Phone: [phone] Comment on above: Reference Range: 1.2 0 - 4.80 Complete Blood Count + Differential 3.63 {x10E9/L} See Below [employer] Work Phone: [phone] Comment on above: Reference Range: 1.2 0 - 7.70 Complete Blood Count + Differential 0.2 % 0.0 - 0.9 [facility] Work Phone: [phone] Comment on above: Immature Granulocyte Count (IG) includes promyelocytes, myelocytes and metamyelocytes but does not include bands. Percent differential counts (%) should be interpreted in the context of the absolute cell counts (cells/L). Complete Blood Count + Differential 0.0 {/100_WBC} 0.0 - 0.0 [employer] Work Phone: Discharge Planning [id number] 02-08-2021 Discharge Planning Note2 Discharge Planning: Discharge DestinationHome Anticipated Discharge [id number] Discharge Planning 02/08/2021 @ 1115 Social Work Note: SW consult for assistance with follow up care for this pt. Per EMR, pt has had several recent trips to several ED's in the past two weeks. It is suspected by staff that pt may be homeless, as pt comes to ED with a large backpack and looking unclean. ED staff request SW follow up to provide pt with resources. SW met with pt. Pt presented as agitated, demanding that SW advocate for pt to be admitted. Pt notes that he had covid in the past and feels he likely has an ongoing autoimmune response from his covid that needs to be addressed by staff. Pt feels ED staff is refusing to provide pt with testing, per ED staff they attempted to explain what testing can be done for pt as an outpatient vs. what can be done in ED. Pt indicates that he is usually a resident of [place], however, has recently moved to [place] and would like to work on having both [place] and [place] Medicaid. SW asked where pt is currently living, pt states on a friends property. SW asked for further information, pt refused to provide an address or further explanation. SW explained that it was suspected pt is homeless pt denied same. SW explained the process of switching Medicaid from state to state, pt demands that SW assist with this, stating because of my mental health, I can't do this. SW explained that pt will need to initiate this process since he will need to follow up outside of the hospital, pt became increasingly agitated, stating I am entitled to be assigned a correctional counselor/case manager to help me with whatever I need for however long I need help. SW explained case management for hospitalized pt's. Pt then goes on to state that he is wanting to pursue civil and criminal charges against this SW and ED physician for denying me of my rights for care. Pt explains that during his last two visits to ED's, security had to be involved in order for him to agree to leave. Pt believes he has a right to appeal his discharge and has a right to be admitted to [facility] for further testing. SW offered assistance in pursuing follow up appointments for pt, pt declined same, becoming increasingly upset and belligerent. SW excused self from room, updated staff of conversation. SW to follow as needed. MATEO Khan, STONE Assessment: Discharge Planning Assessment [id number] Electronic Signatures: Sugey Hutson (STONE) (Signed 08-Feb-2021 15:13) Authored: Discharge Planning, Assessment Last Updated: 08-Feb-2021 15:13 by Sugey Hutson (STONE) Normal [facility] Laboratory - Chemistry and C hemistry - challengeon 02-08-2021 Anion gap [Moles/Vol] 12 mmol/L 10 - 20 - Cardiology -[facility] Work Phone: Calcium [Mass/Vol] 9.5 mg/dL 8.6 - 10.3 MP-Car diology -[facility] 200 Work Phone: Chloride [Moles/Vol] 103 mmol/L 98 - 107 MP-C ardiology -[facility] 200 Work Phone: CO2 [Moles/Vol] 25 mmol/L 21 - 32 MP-Cardio logy -[facility] 200 Work Phone: Creatinine [Mass/Vol] 0.79 mg/dL See Below MP- Cardiology -[facility] 200 Work Phone: [phone] Comment on above: Reference Range: 0.5 0 - 1.30 Glucose [Mass/Vol] 95 mg/dL 74 - 99 MP-Car [facility] 200 Work Phone: Potassium [Moles/Vol] 4.0 mmol/L 3.5 - 5.3 - Cardiology -[facility] 200 Work Phone: Sodium [Moles/Vol] 136 mmol/L 136 - 145 [facility] 200 Work Phone: Urea nitrogen [Mass/Vol] 16 mg/dL 6 - 23 -Cardiology -[facility] 200 Work Phone: No Panel Informationon 02-08 >60 >60 -Cardiology -[facility] 200 Work Phone: Comment on above: CALCULATIONS OF NIKOLE MATED GFR ARE PERFORMED USING THE MDRD STUDY EQUATION FOR THE IDMS-TRACEABLE CREATININE METHODS. CLIN CHEM 2007;53:766-72 [email or web address]?[email or web address] e?LdrlipwLR=[id number]&Da te=08-02-2021&Time=11%3a 45%3a50%3a00&TestType=EC G&Site=10&OutputType=PDF &Ext=PDF -Cardiology -[facility] Work Phone: Sinus rhythm MP-Cardiolog y -[facility] Work Phone: [phone] Normal MP-Cardiology -[facility] Work Phone: [phone] MP-Cardiology -[facility] Work Phone: [phone] MP-Cardiology -[facility] Work Phone: [phone] MP-Cardiology -[facility] Work Phone: [phone] MP-Cardiology -[facility] Work Phone: [phone] MP-Cardiology -[facility] Work Phone: [phone] 1 MP-Cardiology -[facility] Work Phone: [phone] MP-Cardiology -[facility] Work Phone: [phone] MP-Cardiology -[facility] Work Phone: [phone] MP-Cardiology -[facility] Work Phone: [phone] MP-Cardiology -[facility] Work Phone: [phone] MP-Cardiology -[facility] Work Phone: [phone] MP-Cardiology -[facility] Work Phone: [phone] Provider Note - ED v2on 05- Provider Note - ED v2 Provider Note - ED v2: Chart Review: ED NOTES ED NOTES: There is a 50-year-old male there is a 50-year-old male who comes into the emergency department with complaints of palpitations. He has been seen multiple times in the last week week and a half. He has had varying complaints today he had an upset stomach after he drank milk and had cramping on the right side of his abdomen he was discharged with diagnosis of GERD he already has follow-up with [facility] for primary care next week. He states that he usually takes Xanax when he gets anxious he is normally lives in [place] but he is in the area working per his history he states that he is here for palpitations at this time. He denies any chest pain or shortness of breath. He recently had a negative CTA of the chest normal blood work unremarkable EKG did have a positive JANENE. He states that he wants to transfer all his care to . He states that he is back today because he had palpitations after he ate. Family HX: Denies any significant/pertinent family history. Social Hx: Denies ETOH or drug use. Review of systems: Gen.: No weight loss, fatigue, anorexia, insomnia, fever. Eyes: No vision loss, double vision, drainage, eye pain. ENT: No pharyngitis, dry mouth. Cardiac: No chest pain, palpitations, syncope, near syncope. Pulmonary: No shortness of breath, cough, hemoptysis. Heme/lymph: No swollen glands, fever, bleeding. GI: No abdominal pain, change in bowel habits, melena, hematemesis, hematochezia, nausea, vomiting, diarrhea. : No discharge, dysuria, frequency, urgency, hematuria. Musculoskeletal: No limb pain, joint pain, joint swelling. Skin: No rashes. Psych: No depression, anxiety, suicidality, homicidality. Neuro: Denies any numbness weakness or tingling of arms or legs. Denies any loss of bladder or bowel function. Denies any visual disturbance hearing disturbance difficulty speaking or swallowing or gait changes. Review of systems is otherwise negative unless stated above or in history of present illness. Physical Exam Appearance: Alert, oriented , cooperative, in no acute distress. Well nourished & well hydrated. Skin: Intact, dry skin, no lesions, rash, petechiae or purpura. Eyes: PERRLA, EOMs intact, Conjunctiva pink with no redness or exudates. Cornea & anterior chamber are clear, Eyelids without lesions. No scleral icterus. ENT: Hearing grossly intact. External auditory canals patent, tympanic membranes intact with visible landmarks. Nares patent, mucus membranes moist. Dentition without lesions. Pharynx clear, uvula midline. Neck: Supple, without meningismus. Thyroid not palpable. Trachea at midline. No lymphadenopathy. Pulmonary: Clear bilaterally with good chest wall excursion. No rales, rhonchi or wheezing. No accessory muscle use or stridor. Cardiac: Normal S1, S2 without murmur, rub, gallop or extrasystole. No JVD, Carotids without bruits. Abdomen: Soft, nontender, active bowel sounds. No palpable organomegaly. No rebound or guarding. No CVA tenderness. Genitourinary: Exam deferred. Musculoskeletal: Full range of motion. no pain, edema, or deformity. Pulses full and equal. No cyanosis, clubbing, or edema. Neurological: Cranial nerves II through XII are grossly intact, normal sensation, no weakness, no focal findings identified. Strength 5 out of 5 upper and lower extremities bilaterally and symmetrically Psychiatric: Appropriate mood and affect. Denies depression or suicidal ideation. HISTORY OF PRESENTING ILLNESS HOSEA is a 50 year old Male and was seen by me at 08-Feb-2021 12:19 for a chief complaint of palpitations (seen and d/c here 1hr ago. palpitations noted at library, ambulated with ease, increased anxiety noted, states Xanax usually helps but worried his home rx is . pt also states frequenting [facility] numerous times this week, denied access to him recently.) . Triage Information: Most recent Vital Sign Value Date Temp (F): 97.1 02-08-2021 11:48 Temp (C): 36.2 02-08-2021 11:48 Heart Rate (beats/min): 87 02-08-2021 11:48 Respirations (breaths/min): 16 02-08-2021 11:48 SpO2 (%): 99 02-08-2021 11:48 BP Systolic (mm Hg): 155 02-08-2021 11:48 BP Diastolic (mm Hg): 72 02-08-2021 11:48 PAST MEDICAL HISTORY ATTESTATION: I have reviewed and confirmed nurse's/medic's notes for patient's medications, allergies, and medical, surgical, family and social history ALLERGIES/INTOLERANCES: Allergy Allergen: Erythromycin Base Type: Drug Reaction: Unknown HEALTH HISTORY: Medical History Name:Chest pain Code:R07.9 OUTPATIENT MEDICATIONS: Home Medications Review Status for Reconciliation: N/A Med Status: Patient Currently Takes Medications Drug Name: Metoprolol Succinate ER 25 mg oral tablet, extended release Instructions: 1 tab(s) orally once a day Drug Name: Catapres 0.2 mg oral tablet Instructions: 1 tab(s) orally 2 times a d (more content not included)... Normal [facility] Provider Note - ED v2 Provider Note - ED v2: Chart Review: ED NOTES ED NOTES: Source of information: Patient, Review of nursing notes History limitation: None Chief concern: Multiple Concerns History of present illness: 50-year-old male with history of hypertension, aortic aneurysm, renal stenosis presents to the ED for multiple concerns. This morning he developed acute onset of right-sided chest pressure after drinking milk. He is currently on Augmentin for a dental infection. Patient states he is concerned about his aortic aneurysm bursting after stressful things happen to them. He reports he was at the [facility] yesterday evening and was diagnosed with reflux. Patient states he is out of state resident and has physicians to manage his aortic aneurysm and other issues in [place]. He states he has gone to multiple ERs in the last several days for periodic symptoms. He is requesting an answer for his symptoms. He is frustrated that he cannot be provided concrete answers. PMH: HTN AAA Renal Stenosis MEDs: Augmentin Allergies: Erythromycin SH: Denies illicits ROS: A complete review of systems was performed and is negative except as documented in the history of present illness --- Exam: Vitals as documented in the chart GEN: Alert and oriented to person, place, time, and situation. Appears in no acute distress. EYES: PERRL, EOMI, non-injected sclera. ENT: Moist mucous membranes CARDIO: Normal rate and regular rhythm. No murmurs, rubs, or gallops PULM: Clear to auscultation bilaterally. No rales, rhonchi, or wheezes. Good symmetric chest expansion. GI: Soft, non-tender, non-distended. No rebound tenderness or guarding. No organomegaly appreciated. Bowel sounds present in all 4 quadrants. SKIN: Warm and dry MSK: ROM intact in all 4 extremities without contractures. No joint swelling, normal strength. EXT: No peripheral edema, contusions, or wounds. NEURO: Cranial nerves II-XII grossly intact. Sensation to light touch intact and equal bilaterally in upper and lower extremities. Symmetric 5/5 strength in upper and lower extremities. Symmetrical facies. PSYCH: Appropriate mood and behavior, converses and responds appropriately during exam. --- Hospital Course/Medical decision makin-year-old male presents to the ED for multiple concerns. Upon arrival to the ED he appears in no acute distress. His vital signs are unremarkable. His abdomen soft and nontender. His lungs are clear to auscultation bilaterally. He is breathing in no distress. I had a lengthy discussion with patient. He is requesting hospital admission for his intermittent symptoms. I informed the patient that I reviewed the medical work-up that has been done to date over the last several days. He has had multiple CT scans including angiography to rule out pulmonary embolism. His AAA is 4.5cm. Low suspicion for rupture at this time. He has had extensive cardiac work-up which has been negative. He has had laboratory work which shows a normal renal function. I informed the patient that at this time, there is no further testing that would be appropriate in the ER. I also informed him that there is no indication for hospital admission at this time. I understand his frustration about not having a concrete diagnosis however at this time I have low suspicion for emergent pathology. I counseled him to follow-up as an outpatient with providers and we will engage social work to help him set up these appointments. Social work spoke with patient. Patient was treated with a GI cocktail for his symptoms. He was also eating without difficulty in the ER. Patient was counseled about the diagnosis, labs, radiology results, and plan. Larry Merchant MD HISTORY OF PRESENTING ILLNESS HOSEA is a 50 year old Male and was seen by me at 08-Feb-2021 07:53 for a chief complaint of abdominal pain . Triage Information: Most recent Vital Sign Value Date Temp (F): 97.8 02-08-2021 07:59 Temp (C): 36.6 02-08-2021 07:59 Heart Rate (beats/min): 84 02-08-2021 07:59 Respirations (breaths/min): 18 02-08-2021 07:59 SpO2 (%): 99 02-08-2021 07:59 BP Systolic (mm Hg): 133 02-08-2021 07:59 BP Diastolic (mm Hg): 98 02-08-2021 07:59 PAST MEDICAL HISTORY ATTESTATION: I have reviewed and confirmed nurse's/medic's notes for patient's medications, allergies, and medical, surgical, family and social history ALLERGIES/INTOLERANCES: Allergy Allergen: Erythromycin Base Type: Drug Reaction: Unknown HEALTH HISTORY: Medical History Name:Chest pain Code:R07.9 OUTPATIENT MEDICATIONS: Home Medications Review Status for Reconciliation: N/A Med Status: Patient Currently Takes Medications Drug Name: Metoprolol Succinate ER 25 mg oral tablet, extended release Instructions: 1 tab(s) orally onc (more content not included)... Normal [facility] Radiologyon 02-08-2021 XR Chest Single view Normal MP-C ardiology -[facility] Work Phone: Risk Screen - Adult Emergenc yon 02-08-2021 Risk Screen - Adult Emergency Preferred Language: Preferred Language: Preferred Language for Discussing Health Care (patient/designee)Fran villalta Advanced Directives: Advance Directive/DNRyes Advance Directive typeDurable Power of Dairy Tester for Healthcare Durable Power of Dairy Tester AvailabilityDPOA not available now Family Violence Adult: Abuse Screen: Are you or have you been threatened or abused physically, emotionally, or sexually by anyoneno Learning Assessment (Patient): Learning Assessment (Patient): Patient is Able to be Assessed for Learningyes Factors Influencing Readiness to Learnnone Factors that Impact Ability to Learnnone Devices/Methods Used to Communicatenone Learning Preferencesverbal instruction; written material Cultural Considerationsnone Developmental Considerationsnone Zoroastrian Considerationsnone Learning Assessment (Other Learner): Learning Assessment (Other Learner): Other learner availableno Pressure Injury/TB/Substance: Pressure Injury: Pressure Injury Present on Admissionno Do you have a coughno Substance Use Current or Former Historynever: Cigarette/Tobacco, e-Cigarette/Vaping, Street Drugs YES: Alcohol Alcohol Usedaily Alcohol Use Additional Comments1 beer Admission Risk Screen: Significant IndicatorsComplete CAGE: CAGE: Is this an injured patient at a Trauma Center ([facility]/[place] /[place]): no Electronic Signatures: Irma Dias (RN) (Signed 08-Feb-2021 12:14) Authored: Preferred Language, Advanced Directives, Family Violence Adult, Learning Assessment (Patient), Learning Assessment (Other Learner), Pressure Injury/TB/Substance, Pressure Injury, CAGE Last Updated: 08-Feb-2021 12:14 by Irma Dias) Normal [facility] TROPONIN Ion 02-08-2021 Troponin I.cardiac [Mass/Vol] ng/mL Normal 0.00 - 0.03 [facility] Comment on above: Result Comment: LESS THAN 0.04 NG/ML: NEGATIVE REPEAT TESTING IN THREE TO SIX HOURS IF CLINICALLY INDICATED. 0.04 - 0.5 NG/ML: CONSISTENT WITH POSSIBLE CARDIAC DAMAGE AND POSSIBLE INCREASED CLINICAL RISK. SERIAL MEASUREMENTS MAY HELP ASSESS EXTENT OF MYOCARDIAL DAMAGE. >0.5 NG/ML: CONSISTENT WITH CARDIAC DAMAGE, INCREASED CLINICAL RISK AND MYOCARDIAL INFARCTION. SERIAL MEASUREMENTS MAY HELP ASSESS EXTENT OF MYOCARDIAL DAMAGE. . Note: Troponin I testing is performed using different testing methodology at [facility] than at other [facility]. Direct result comparisons should only be made within the same method. Performed By: #### T ROP2 #### [facility] [address] [place] [address] Triage - EDon 02-08-2021 Triage - ED Chart Review: ARRIVAL INFORMATION Mode of Arrival: ambulance Agency: City Agency Name: [facility] CHIEF COMPLAINT HOSEA ALVAREZ is a Male patient with a chief complaint of abdominal pain. Triage Date/Time: 08-Feb-2021 08:00 WILMAN: 3 Pain Rating (0-10): 7 = Severe Vital Signs: Temperature: 97.8F ( 36.6C) Blood Pressure: 133/98 Mean: Heart Rate: 84 Respiratory Rate: 18 Pulse Oximetry: 99% on room air, no respiratory support. Weight: 182.9 pounds. Calculated 83.0 kg. [place] Coma Scale: Best Eye Response: (E4) spontaneous Best Motor Response: (M6) obeys commands Best Verbal Response: (V5) oriented [place] Score: 15 Cough lasting greater than 3 weeks: no Allergies: yes Patient has homicidal thoughts: no Risk Screens Suicide Risk Screen In the Past Month: Have you wished you were or wished you could go to sleep and not wake up no In the Past Month: Have you had any actual thoughts of killing yourself no In Your Lifetime: Have you ever done anything, started to do anything, or prepared to do anything to end your life no [place] Fall Scale Screening Has the patient fallen before (or is the patient in the ED as a result of a fall) has not had a fall Does the patient have an impaired gait does not have impaired gait Is the patient cognitively impaired not cognitively impaired Interventions: Molina Fall Interventions: LOW INTERVENTIONS: *patient oriented to surroundings and call system, * patient/family falls education completed and documented, *patients fall status communicated during bedside handoff, *whiteboard updated, *mode of toileting discussed with patient, *bed in low position with brakes locked, *call light in reach, * non-skid footwear TRAVEL HISTORY Travel History Coronavirus Screening: no exposure or symptoms PAIN Pain Scale Used: SHANNON Pain Rating (0-10): 7 = Severe Past Medical History: Past Medical History Reviewedyes Electronic Signatures: Nessa Romero (BR[place]NN) (Signed 08-Feb-2021 08:03) Authored: Quick Triage, Risk Screens, Pain, Chart Review, Scores, Past Medical History Last Updated: 08-Feb-2021 08:03 by Nessa Romero ([place]NN) Normal [facility] Troponin I, Serumon 02-09-20 Troponin I.cardiac [Mass/Vol] ng/mL See Below FLORINDA-Cardiology -[place] 200 Work Phone: Comment on above: Reference Range: 0.0 0 - 0.03LESS THAN 0.04 NG/ML: NEGATIVEREPEAT TESTING IN THREE TO SIX HOURSIF CLINICALLY INDICATED.0.04 - 0.5 NG/ML: CONSISTENT WITH POSSIBLECARDIAC DAMAGE AND POSSIBLE INCREASEDCLINICAL RISK.SERIAL MEASUREMENTS MAY HELP ASSESS EXTENT OFMYOCARDIAL DAMAGE.>0.5 NG/ML: CONSISTENT WITH CARDIAC DAMAGE,INCREASED CLINICAL RISK AND MYOCARDIALINFARCTION. SERIAL MEASUREMENTS MAY HELPASSESS EXTENT OF MYOCARDIAL DAMAGE..Note: Troponin I testing is performed using different testing methodology at [facility] than at [facility]. Direct result comparisons should only be made within the same method. JANENE TITER/EARL PANELon 2020 ANTI-CENTROMERE <0.2 Normal [facility] Comment on above: Result Comment: REF VALUES < 1.0 = NEGATIVE >=1.0 = POSITIVE Performed By: #### E NAP2 ####[id number] [place] [address] ANTI-CHROMATIN 0.5 AI Normal [facility] Comment on above: Result Comment: REF VALUES < 1.0 = NEGATIVE >=1.0 = POSITIVE Performed By: #### E NAP2 ####[id number] [place] [address] ANTI-DNA [DS] 1.0 IU/mL Normal [facility] Comment on above: Result Comment: REF VALUES NEGATIVE: <= 4 IU/ML EQUIVOCAL: 5- 9 IU/ML POSITIVE: >=10 IU/ML Performed By: #### E NAP2 ####[id number] [place] [address] ANTI-SHIVANI-1 <0.2 Normal [facility] Comment on above: Result Comment: REF VALUES < 1.0 = NEGATIVE >=1.0 = POSITIVE Performed By: #### E NAP2 ####[id number] [place] [address] ANTI-RIBOSOMAL P <0.2 Normal [facility] Comment on above: Result Comment: REF VALUES < 1.0 = NEGATIVE >=1.0 = POSITIVE Performed By: #### E NAP2 ####[id number] [place] [address] ANTI-FLOOR GRINDER <0.2 Normal [facility] Comment on above: Result Comment: REF VALUES < 1.0 = NEGATIVE >=1.0 = POSITIVE Performed By: #### E NAP2 ####[id number] [place] [address] ANTI-SCL-70 <0.2 Normal [facility] Comment on above: Result Comment: REF VALUES < 1.0 = NEGATIVE >=1.0 = POSITIVE Performed By: #### E NAP2 ####[id number] [place] [address] ANTI-SM <0.2 Normal [facility] Comment on above: Result Comment: REF VALUES < 1.0 = NEGATIVE >=1.0 = POSITIVE Performed By: #### E NAP2 ####[id number] [place] [address] ANTI-SM/FLOOR GRINDER <0.2 Normal [facility] Comment on above: Result Comment: REF VALUES < 1.0 = NEGATIVE >=1.0 = POSITIVE Performed By: #### E NAP2 ####[id number] [place] [address] ANTI-SSA <0.2 Normal [facility] Comment on above: Result Comment: REF VALUES < 1.0 = NEGATIVE >=1.0 = POSITIVE Performed By: #### E NAP2 ####[id number] [place] [address] ANTI-SSB <0.2 Normal [facility] Comment on above: Result Comment: REF VALUES < 1.0 = NEGATIVE >=1.0 = POSITIVE Performed By: #### E NAP2 ####[id number] [place] [address] JANENE PATTERN SPECKLED Normal [facility] Comment on above: Performed By: #### E NAP2 ####[id number] [place] [address] JANENE TITER 1:40 Normal [facility] Comment on above: Performed By: #### E NAP2 ####[id number] [place] [address] JANENE-WITH REFLEX TO ENAon JANENE WITH REFLEX TO EARL Positive Invalid Interpretation Code NEGATIVE [facility] Comment on above: Result Comment: The Antinuclear Antibody (JANENE) test was performed using indirect immunofluorescence assay with HEp-2 cells slide. Performed By: #### A NA2 ####[id number] [place] [address] C Reactive Protein, Serumon 02-05-2021 CRP [Mass/Vol] 0.13 mg[facility] [place] [facility] Work Phone: Comment on above: REF VALUE< 1.00 Complete Blood Count + Diffe rentialon 02-05-2021 Erythrocyte distribution width (RBC) [Ratio] 12.5 % See Below MP-Cardiology -[place] [facility] 200 Work Phone: [phone] Comment on above: Reference Range: 11. 5 - 14.5 Hematocrit (Bld) [Volume fraction] 38.4 % below low threshold See Below [facility] 200 Work Phone: Comment on above: Reference Range: 41. 0 - 52.0 Hemoglobin (Bld) [Mass/Vol] 12.9 g/dL below low threshold See Below [facility] 200 Work Phone: Comment on above: Reference Range: 13. 5 - 17.5 Lymphocytes/100 WBC (Bld) 7.8 % See Below [facility] 200 Work Phone: Comment on above: Reference Range: 13. 0 - 44.0 MCHC (RBC) [Mass/Vol] 33.6 g/dL See Below [facility] 200 Work Phone: Comment on above: Reference Range: 32. 0 - 36.0 MCV (RBC) [Entitic vol] 84 fL 80 - 100 [facility] 200 Work Phone: Monocytes/100 WBC (Bld) 2.1 % 2.0 - 10.0 [facility] 200 Work Phone: Neutrophils/100 WBC (Bld) 89.8 % See Below [facility] 200 Work Phone: Comment on above: Reference Range: 40. 0 - 80.0 Platelets (Bld) [#/Vol] 188 10*3/uL 150 - 450 [facility] 200 Work Phone: RBC (Bld) [#/Vol] 4.59 {x10E12/L} See Below [facility] 200 Work Phone: Comment on above: Reference Range: 4.5 0 - 5.90 WBC (Bld) [#/Vol] 6.8 10*3/uL 4.4 - 11.3 [facility] 200 Work Phone: Complete Blood Count + Differential 0.14 {x10E9/L} See Below [facility] 200 Work Phone: Comment on above: Reference Range: 0.1 0 - 1.00 Complete Blood Count + Differential 0.53 {x10E9/L} below low threshold See Below [facility] 200 Work Phone: Comment on above: Reference Range: 1.2 0 - 4.80 Complete Blood Count + Differential 6.10 {x10E9/L} See Below [facility] [email or web address] Work Phone: Comment on above: Reference Range: 1.2 0 - 7.70 Complete Blood Count + Differential 0.3 % 0.0 - 0.9 [facility] [email or web address] Work Phone: Comment on above: Immature Granulocyte Count (IG) includes promyelocytes, myelocytes and metamyelocytes but does not include bands. Percent differential counts (%) should be interpreted in the context of the absolute cell counts (cells/L). Laboratory - Chemistry and C hemistry - challengeon 02-05-2021 Albumin BCP dye [Mass/Vol] 4.6 g/dL 3.4 - 5.0 [facility] [email or web address] Work Phone: ALP [Catalytic activity/Vol] 45 U/L 33 - 120 [facility] [email or web address] Work Phone: ALT With P-5'-P [Catalytic activity/Vol] 14 U/L 10 - 52 [facility] [email or web address] Work Phone: Comment on above: Patients treated wit h Sulfasalazine may generate falsely decreased results for ALT. Anion gap [Moles/Vol] 13 mmol/L 10 - 20 [place] [address] Work Phone: AST With P-5'-P [Catalytic activity/Vol] 14 U/L 9 - 39 [place] [address] Work Phone: [phone] Bilirubin [Mass/Vol] 0.4 mg/dL 0.0 - 1.2 -C ardiology -[facility] 200 Work Phone: [phone] Calcium [Mass/Vol] 9.8 mg/dL 8.6 - 10.3 MP-Car diology -[facility] [place] 200 Work Phone: [phone] Chloride [Moles/Vol] 104 mmol/L 98 - 107 MP-C ardiology -[facility] [place] 200 Work Phone: CO2 [Moles/Vol] 27 mmol/L 21 - 32 -Cardio logy -[facility] [place] 200 Work Phone: [phone] Creatinine [Mass/Vol] 0.90 mg/dL See Below - Cardiology -[facility] [place] 200 Work Phone: Comment on above: Reference Range: 0.5 0 - 1.30 Glucose [Mass/Vol] 135 mg/dL above high threshold 74 - 99 -Cardiology -[facility] [place] 200 Work Phone: [phone] Potassium [Moles/Vol] 4.1 mmol/L 3.5 - 5.3 - Cardiology -[facility] [place] 200 Work Phone: [phone] Protein [Mass/Vol] 7.5 g/dL 6.4 - 8.2 -Car [facility] 200 Work Phone: [phone] Sodium [Moles/Vol] 140 mmol/L 136 - 145 -Car diology -[facility] 200 Work Phone: [phone] Urea nitrogen [Mass/Vol] 15 mg/dL 6 - 23 -Cardiology -[facility] 200 Work Phone: [phone] No Panel Informationon 02-05 >60 >60 -Cardiology -[facility] 200 Work Phone: [phone] Comment on above: CALCULATIONS OF NIKOLE MATED GFR ARE PERFORMED USING THE MDRD STUDY EQUATION FOR THE IDMS-TRACEABLE CREATININE METHODS. CLIN CHEM 2007;53:766-72 Sedimentation Rate, Erythroc yteon 02-05-2021 ESR (Bld) [Velocity] 22 mm/h above high threshold 0 - 10 [facility] -[place] [facility] 200 Work Phone: CORONAVIRUS 2019 BY PCRon SARS-CoV-2 (COVID-19) RNA TATI+probe Ql (Unsp spec) Not detected Normal Not Detected [facility] Comment on above: Result Comment: . This assay is designed to detect the RdRp gene of SARS-CoV-2 via nucleic acid amplification. A Not Detected result does not preclude COVID-19 infection since the adequacy of sample collection and/or low viral burden may result in presence of viral nucleic acids below the clinical sensitivity of this test method. Fact sheet for providers: www.fda.gov/media/445752/download Fact sheet for patients: www.fda.gov/media/573803/download This test has received FDA Emergency Use Authorization (EUA) and has been verified by [facility] ([facility] This test is only authorized for the duration of time that circumstances exist to justify the authorization of the emergency use of in vitro diagnostic tests for the detection of SARS-CoV-2 virus and/or diagnosis of COVID-19 infection under section 564(b)(1) of the Act, 21 U.S.C. 360bbb-3(b)(1), unless the authorization is terminated or revoked sooner. [facility] is certified under CLIA-88 as qualified to perform high complexity testing. Testing is performed in the [facility] laboratories located at [address] [place] [address]. Performed By: #### C OV19 ####[facility] [id number] [place] [address] CT Head without Contraston 0 02-03-2021 CT Head limited WO contrast Normal -Cardiology -[place] [facility] 200 Work Phone: Covid 19 Resultson SARS-CoV-2 (COVID-19) RNA TATI+probe Ql (Unsp spec) NEGATIVE COVID-19 Test Coronaviruses are common world-wide and are the cause of many common colds. SARS-COV2 is a new coronavirus that began circulating worldwide in 2019 so we are calling it COVID-19. It has been estimated that four out of five patients with COVID-19 will recover at home without the need for medical attention. Symptoms of COVID-19 may include cough, fever, shortness of breath, loss of taste or smell and other flu-like symptoms including chills, sore muscles, sore throat, and headache. Severe illness is more common in older people and people with other health problems such as high blood pressure, obesity, and immune system problems. If the test is positive, you have COVID-19. You will be contacted by the ordering physicians office and instructed to remain on home isolation, in accordance with CDC guidelines. You may also be contacted by the [facility] to see if any of your close contacts may have been exposed to the virus and need to quarantine. If the test is negative, you likely do not have COVID-19 at this time, but you still may have a different illness that can spread to other people (like Influenza, or the Flu) and could still be at risk for getting COVID-19. We recommend that you stay away from other people to limit the spread of illness until your symptoms are improving and you are fever-free for 24 hours without the use of fever lowering medications such as acetaminophen or ibuprofen. No test is 100% accurate so if you are still concerned you may have COVID-19, talk to your doctor about the need to continue to stay away from others. Medicines Unless your provider told you not to use the following: Acetaminophen (Tylenol and others) is generally safe. Anti-inflammatory medications, such as Ibuprofen (Advil or Motrin) or Naproxen (Aleve) can also be used. Barw-oiz-umgdqjq cough and cold medicines can be used according to the instructions on the package. Some wits-qzp-nergbwg medicines also contain acetaminophen. Make sure you are not taking more than your recommended dose. For those not hospitalized, there is no specific treatment available for this illness. Antibiotics do not treat Coronaviruses. Follow-Up Follow up with your doctor by scheduling a virtual visit or consider follow-up at one of our urgent care fever clinics. If you are having difficulty breathing, or are very weak and having difficulty standing, this is a medical emergency. Call 911 or have someone take you to the nearest emergency room immediately. If possible, wear a facemask. Additional guidance from the CDC for patients who tested POSITIVE for COVID-19 How to isolate: Isolate yourself in a specific room at home and limit your contact with others. Use a separate bathroom from other members of the household, when possible. Leave home only to get essential medical care. Do not go to work, school or public areas. Avoid using public transportation, ride-sharing, or taxis. Restrict contact with pets and other animals. If you must care for your pet or be around animals while you are sick, wash your hands before and after your interaction and wear a facemask. Make sure that shared spaces in the home have good airflow, such as by an air conditioner or an opened window, weather permitting. Personal Hygiene Procedures: Wear a face mask when in the same room as other people or pets. If a face mask interferes with your breathing, others should wear a mask when sharing space with you. Frequent hand-washing: wash your hands with soap and water for at least 20 seconds. If soap and water are not available, use alcohol-based hand market research manager. Avoid touching your eyes, nose, and mouth with unwashed hands. Household Hygiene Procedures: Avoid sharing personal household items such as dishes, glassware, cups, eating utensils, towels or bedding with other people or pets in your home. After use, these items should be washed with soap and hot water. Disinfect all high-touch surfaces every day with antibacterial cleaning solutions such as Lysol wipes, bleach, cleansers, etc. High-touch surfaces include tabletops, doorknobs, bathroom fixtures, toilets, phones, keyboards, tablets and bedside tables. Immediately clean any surfaces that may have blood, poop or body fluids on them, using antibacterial cleaning solutions such as Lysol wipes, bleach, cleansers, etc. If clothing or bedding come into contact with blood, poop or body fluids, they should be washed immediately. Follow the directions on the laundry detergent and clothing labels but hot water is recommended when possible. Stopping home isolation precautions: If possible, consult your doctor before stopping home isolation precautions. According to the CDC, you can discontinue home isolation precautions when you have met both of these criteria: Your fever and respiratory symptoms have been gone for 24 guerline (more content not included)... Normal [facility] Laboratory - Serology - non- microon 02-03-2021 Centromere protein B Ab Qn (S) <0.2 [facility] [place] [email or web address] Work Phone: Comment on above: REF VALUES < 1.0 = N EGATIVE >=1.0 = POSITIVE Chromatin Ab Qn 0.5 {AI} [facility] [place] 200 Work Phone: Comment on above: REF VALUES < 1.0 = N EGATIVE >=1.0 = POSITIVE DNA double strand Ab Qn (S) 1.0 [IU]/mL [place] [address] Work Phone: Comment on above: REF VALUESNEGATIVE: <= 4 IU/MLEQUIVOCAL: 5- 9 IU/MLPOSITIVE: >=10 IU/ML Shivani-1 extractable nuclear Ab IA Ql (S) <0.2 [facility] [email or web address] Work Phone: Comment on above: REF VALUES < 1.0 = N EGATIVE >=1.0 = POSITIVE Nuclear Ab Hep2 substrate Ql (S) Positive Abnormal NEGATIVE [facility] avandeoIr[place] [email or web address] Work Phone: Comment on above: The Antinuclear Anti body (JANENE) test was performed using indirect immunofluorescence assay with HEp-2 cells slide. Nuclear Ab IF (S) [Titer] 1:40 [facility] [place] [address] Work Phone: Nuclear Ab pattern (S) [Interp] SPECKLED [facility] [place] [address] Work Phone: Ribonucleoprotein extractable nuclear Ab IA Qn (S) <0.2 [facility] [place] [email or web address] Work Phone: Comment on above: REF VALUES < 1.0 = N EGATIVE >=1.0 = POSITIVE Ribosomal P Ab Qn (S) <0.2 [facility] 200 Work Phone: Comment on above: REF VALUES < 1.0 = N EGATIVE >=1.0 = POSITIVE SCL-70 extractable nuclear Ab IA Ql (S) <0.2 [facility] 200 Work Phone: Comment on above: REF VALUES < 1.0 = N EGATIVE >=1.0 = POSITIVE Sjogrens syndrome-A extractable nuclear Ab IA Qn (S) <0.2 [facility] -[place] [facility] 200 Work Phone: Comment on above: REF VALUES < 1.0 = N EGATIVE >=1.0 = POSITIVE Sjogrens syndrome-B extractable nuclear Ab IA Qn (S) <0.2 [facility] -[place] [address] Work Phone: Comment on above: REF VALUES < 1.0 = N EGATIVE >=1.0 = POSITIVE [place] extractable nuclear Ab IA Qn (S) <0.2 MP-Cardiolo gy -[facility] [place] 200 Work Phone: Comment on above: REF VALUES < 1.0 = N EGATIVE >=1.0 = POSITIVE [place] extractable nuclear Ab+Ribonucleoprotein extractable nuclear Ab IA Ql (S) <0.2 MP[facility]Cardiology -[facility] [place] 200 Work Phone: Comment on above: REF VALUES < 1.0 = N EGATIVE >=1.0 = POSITIVE No Panel Informationon 02-03 [email or web address] e?UntntuaDI=[id number]&Da te=03-02-2021&Time=05%3a 07%3a18%3a00&TestType=EC G&Site=2&OutputType=PDF& Ext=PDF MP-Cardiology -[facility] [place] 200 Work Phone: Sinus bradycardia MP-Card iology -[facility] [place] 200 Work Phone: Borderline Abnormal MP-Ca rdiology -[facility] [place] 200 Work Phone: [phone] [facility] Work Phone: [phone] [facility]-Cardiology -[place] [address] 200 Work Phone: [phone] [facility]Cardiology -[place] [facility] 200 Work Phone: [phone] [facility]Cardiology -[place] [facility] 200 Work Phone: [phone] [facility]iology -[place] [facility] 200 Work Phone: [phone] [facility] -[place] [facility] 200 Work Phone: [phone] [facility] -[place] [facility] 200 Work Phone: [phone] [facility] -[place] [facility] 200 Work Phone: [phone] [facility] -[place] [facility] 200 Work Phone: [phone] [facility] -[place] [facility] 200 Work Phone: [phone] [facility] -[place] [facility] 200 Work Phone: [phone] 1 [facility] -[place] [facility] 200 Work Phone: [phone] 1 [facility] -[place] [facility] 200 Work Phone: [phone] 1 [facility] -[place] [facility] 200 Work Phone: [phone] Please click on the link to view the study images Normal [facility] -[place] [facility] 200 Work Phone: [phone] [email or web address] e?KpbjkaqOL=[id number]&Da te=03-02-2021&Time=02%3a 56%3a24%3a00&TestType=EC G&Site=2&OutputType=PDF& Ext=PDF [facility] -[place] [facility] 200 Work Phone: Please see ED Provid er Note for formal interpretation [facility] -[place] [facility] 200 Work Phone: Normal [facility] -[place] [facility] 200 Work Phone: [phone] [facility] -[place] [facility] 200 Work Phone: [phone] [facility] -[place] [facility] 200 Work Phone: [phone] [facility] -[place] [facility] 200 Work Phone: [phone] [facility] -[place] [facility] 200 Work Phone: [phone] [facility] -[place] [facility] 200 Work Phone: [phone] [facility] Work Phone: [phone] [facility] Work Phone: [phone] [facility] Work Phone: [phone] [facility] Work Phone: [phone] [facility] Work Phone: [phone] [facility] Work Phone: [phone] [facility] Work Phone: [phone] [facility] Work Phone: [phone] [facility] Work Phone: [phone] Provider Note - ED v2on 05- Provider Note - ED v2 Provider Note - ED v2: Chart Review: ED NOTES ED NOTES: HPI: This is a 50-year-old male past medical history of hypertension, known 4.5 cm ascending thoracic aneurysm, and renal stenosis who presents to the emergency department again for chest pain. I did see this patient a few hours ago. Please see that note for full details. Patient was discharged. He did not have a ride home and was set up with transportation. While waiting in the lobby he then canceled his transportation. He wanted to check in because he thought his blood pressure was elevated. He then stated that he was having an allergic reaction after eating chocolate pudding. The allergic reaction he is describing is right-sided chest tightness. He feels like his chest locked up on him. This is the same pain he has been experiencing intermittently for a while now. Denied swelling of the lips, tongue, or throat. No rash. Patient denied lightheadedness, dizziness, diaphoresis, nausea, vomiting, abdominal pain, or radiation of the pain. Family HX: Denies any significant/pertinent family history. Social Hx: Reviewed Review of Systems: Gen.: No weight loss, fatigue, anorexia, insomnia, fever. Eyes: No vision loss, double vision, drainage, eye pain. ENT: No pharyngitis, dry mouth. Cardiac: See HPI Pulmonary: No shortness of breath, cough, hemoptysis. GI: No abdominal pain, change in bowel habits, melena, hematemesis, hematochezia, nausea, vomiting, diarrhea. : No discharge, dysuria, frequency, urgency, hematuria. Musculoskeletal: No limb pain, joint pain, joint swelling. Skin: No rashes. Review of systems is otherwise negative unless stated above or in history of present illness. Physical exam General: Vitals noted, no distress. HEENT: Normocephalic atraumatic. Posterior oropharynx unremarkable. Neck: Supple. Cardiac: Regular rate and rhythm. No murmurs, gallops, or rubs. No peripheral edema of lower extremities. Pulmonary: Lungs clear bilaterally with good aeration. No adventitious breath sounds. Abdomen: Soft, nontender, nonsurgical. No right upper quadrant tenderness to palpation. No peritoneal signs. Normoactive bowel sounds. Musculoskeletal: Normal range of motion of all extremities. Skin: No rash Neuro: No focal neurologic deficits Medical Decision-Making: Summary: This is a 50-year-old male who presents back to the emergency department for allergic reaction/chest tightness. Afebrile at 97.3 Fahrenheit. Heart rate 76 bpm. Respiratory rate 16. O2 saturation 100% room air. Blood pressure 130/99. Patient had extensive work-up a few hours ago. Please see that note for full details of that visit. CT scan of the chest demonstrated stable 4.5 cm descending thoracic aneurysm, no PE. Troponins negative x2. Transportation was arranged for the patient. While he was waiting in the waiting room he canceled his transportation. He then wanted to check in because he was having allergic reaction after eating chocolate pudding. States she is having right-sided chest tightness but this is the same that is been dealing with intermittently for awhile now. His heart score is 2. He is well-appearing and nontoxic on exam. No signs of allergic reaction. Patient wants ultrasound right upper quadrant. Was performed beside by attending physician. Please see ultrasound note. EKG was repeated and demonstrates sinus bradycardia, ventricular rate 57 bpm, no ischemic changes per my read. Patient will be discharged home. Follow-up with PCP. Impression: 1. Chest pain Disposition: Discharge HISTORY OF PRESENTING ILLNESS HOSEA is a 50 year old Male and was seen by me at 03-Feb-2021 04:24 for a chief complaint of allergic reaction . Other complaints include: pt sts he ate some chocolate pudding and feels like he has chest pressure after pudding (1). Triage Information: Most recent Vital Sign Value Date Temp (F): 97.3 02-03-2021 02:56 Temp (C): 36.2 02-03-2021 02:56 Heart Rate (beats/min): 76 02-03-2021 02:56 Respirations (breaths/min): 16 02-03-2021 02:56 SpO2 (%): 100 02-03-2021 02:56 BP Systolic (mm Hg): 138 02-03-2021 02:56 BP Diastolic (mm Hg): 99 02-03-2021 02:56 PAST MEDICAL HISTORY ATTESTATION: I have reviewed and confirmed nurse's/medic's notes for patient's medications, allergies, and medical, surgical, family and social history ALLERGIES/INTOLERANCES: Allergy Allergen: Erythromycin Base Type: Drug Reaction: Unknown HEALTH HISTORY: Medical History Name:Chest pain Code:R07.9 OUTPATIENT MEDICATIONS: Home Medications Review Status for Reconciliation: N/A Med Status: Patient Currently Takes Medications Drug Name: Metoprolol Succinate ER 25 mg oral tablet, extended release Instructions: 1 tab(s) orally once a day Drug Name: Catapres 0.2 mg oral tablet Instructions: 1 tab(s) orally 2 times a day Drug Name: metoprolol tartrate 50 mg (more content not included)... Normal [facility] Provider Note - ED v2 Provider Note - ED v2: Chart Review: ED NOTES ED NOTES: HPI: This is a 50-year-old male the past medical history of hypertension, known 4.5 cm aneurysm of the ascending thoracic aorta, and renal stenosis who presents to the emergency department for multiple complaints. Patient states he has had been having chest pain in the right side of his chest. He does have pain that started in the scapular region and radiates into the mid thoracic back. Seems to be worse when he moves. Pain has been intermittent. Nothing seems to make it better or worse. States he has not tried anything. He did have in September and has been reading online that he might have Covid inflammatory syndrome. Feels like his body flares up at times. Denied fever, chills, sore throat, runny nose, abdominal pain, or urinary symptoms. Feels like he might be constipated although he did have a bowel movement today of hard stool. He was seen at [facility] earlier today. Denied previous CAD, hyperlipidemia, diabetes, or smoking. Family HX: Denies any significant/pertinent family history. Social Hx: Reviewed Review of Systems: Gen.: No weight loss, fatigue, anorexia, insomnia, fever. Eyes: No vision loss, double vision, drainage, eye pain. ENT: No pharyngitis, dry mouth. Cardiac: See HPI Pulmonary: No shortness of breath, cough, hemoptysis. GI: See HPI : No discharge, dysuria, frequency, urgency, hematuria. Musculoskeletal: No limb pain, joint pain, joint swelling. Skin: No rashes. Review of systems is otherwise negative unless stated above or in history of present illness. Physical exam General: Vitals noted, no distress. Well-hydrated and nontoxic in appearance. HEENT: Normocephalic atraumatic. Neck: Supple. Trachea midline. Cardiac: Regular rate and rhythm. No peripheral edema Pulmonary: Lungs clear bilaterally with good aeration. No adventitious breath sounds. Abdomen: Soft, nontender, nonsurgical. No peritoneal signs. Normoactive bowel sounds. Musculoskeletal: Normal range of motion of all extremities. No tenderness to palpation of the cervical, thoracic, or lumbar spinous processes. Skin: No rash Neuro: No focal neurologic deficits Medical Decision-Making: Summary: This is a 50-year-old male who presents to the emergency department for multiple complaints. Patient is afebrile at 97.6 Fahrenheit. Heart rate 81 bpm. Respiratory rate 18. O2 saturation 100% on room air. Blood pressure 144/98. EKG demonstrates normal sinus rhythm, ventricular rate 75 bpm, no ST elevation per my read. Heart score is 2. Patient did receive IV Toradol and Pepcid. Patient did have a CT scan of the chest performed on January 29 which did demonstrate stable ascending thoracic aortic aneurysm at 4.5 cm. Patient is leukopenic at 3.0. Patient CBC, and lipase unremarkable. Troponin is negative x2. Covid test negative. 3-hour EKG demonstrates sinus bradycardia, ventricular rate 54 bpm, no ischemic changes per my read. chest x-ray demonstrated clear lungs, normal heart size, no significant change. We did repeat a CT scan of the chest given patient's complaint of chest pain and back pain in the setting of his known thoracic aneurysm. CT scan of the chest today demonstrates aneurysmal dilation of the ascending thoracic aorta, no evidence of dissection, there is no evidence of pulmonary embolus. Patient is requesting additional lab work such as D-dimer and sed rate. I explained the patient that D-dimer is necessary he does not have a PE based on the CT scanning. Patient would not leave until an JANENE was obtained. This was ordered. He was given a prescription of Pepcid. He is to follow-up with his PCP, thoracic surgery, and rheumatology if he wishes. He is stable for discharge. Return to the emergency department if symptoms worsen or if new symptoms develop. Impression: 1. Chest pain 2. 4.5 cm thoracic aortic aneurysm Disposition: Discharge HISTORY OF PRESENTING ILLNESS HOSEA is a 50 year old Male and was seen by me at 02-Feb-2021 20:04 for a chief complaint of multiple medical complaints . Other complaints include: Pt states that he has CP, back pain and is worried about being constipated. Pt states that he was seen at the [facility] and was diagnosed with a thoracic aneurysm and discharged today. . Triage Information: Most recent Vital Sign Value Date Temp (F): 97.6 02-02-2021 19:26 Temp (C): 36.4 02-02-2021 19:26 Heart Rate (beats/min): 81 02-02-2021 19:26 Respirations (breaths/min): 18 02-02-2021 19:26 SpO2 (%): 100 02-02-2021 19:26 BP Systolic (mm Hg): 144 02-02-2021 19:26 BP Diastolic (mm Hg): 98 02-02-2021 19:26 PAST MEDICAL HISTORY ATTESTATION: I have reviewed and confirmed nurse's/medic's notes for patient's medications, allergies, and medical, surgical, family and social history ALLERGIES/INTOLERANCES: Allergy Allergen: Erythromycin Base (more content not included)... Normal [facility] TH CT ANGIO CHESTon 02-04-20 CT ANGIO CHEST STUDY: CT Angiogram of the Chest; 02/02/2021 at 10:30 PM INDICATION: Chest pain, back pain. 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 COMPARISON: CTA chest 01/29/21. XR chest 02/02/21, 02/01/21. ACCESSION NUMBER(S): [id number] ORDERING CLINICIAN: ALBINA LOPEZ PA-C TECHNIQUE: CTA of the chest was performed with intravenous contrast. 3D angiographic image post processing was generated. Isovue-370 90 mL was administered intravenously. Automated mA/kV exposure control was utilized and patient examination was performed in strict accordance with principles of ALARA. FINDINGS: Pulmonary arteries are adequately opacified without acute or chronic filling defects. There is fusiform aneurysmal dilatation of the ascending thoracic aorta, measuring 4.5 cm maximally at the level of the main pulmonary artery. Heart is upper limits normal in size without pericardial effusion. Thoracic lymph nodes are not enlarged. There is no pleural effusion, pleural thickening, or pneumothorax. The airways are patent. Atelectatic changes are noted. Lungs are without interstitial disease or suspicious nodules. Upper abdomen demonstrates no acute pathology. There are no acute fractures. No suspicious bony lesions. Senescent changes of the thoracic spine are present. IMPRESSION: Aneurysmal dilatation of the ascending thoracic aorta. No evidence of dissection. There is no evidence of pulmonary embolus. Signed by Kay Rodríguez II, MD Electronically signed by: KAY RODRÍGUEZ MD, PHD Normal [facility] TROPONIN Ion 02-03-2021 Troponin I.cardiac [Mass/Vol] ng/mL Normal 0.00 - 0.03 [facility] Comment on above: Result Comment: LESS THAN 0.04 NG/ML: NEGATIVE REPEAT TESTING IN THREE TO SIX HOURS IF CLINICALLY INDICATED. 0.04 - 0.5 NG/ML: CONSISTENT WITH POSSIBLE CARDIAC DAMAGE AND POSSIBLE INCREASED CLINICAL RISK. SERIAL MEASUREMENTS MAY HELP ASSESS EXTENT OF MYOCARDIAL DAMAGE. >0.5 NG/ML: CONSISTENT WITH CARDIAC DAMAGE, INCREASED CLINICAL RISK AND MYOCARDIAL INFARCTION. SERIAL MEASUREMENTS MAY HELP ASSESS EXTENT OF MYOCARDIAL DAMAGE. . Note: Troponin I testing is performed using different testing methodology at [facility] than at other [facility]. Direct result comparisons should only be made within the same method. Performed By: #### T ROP2 ####[facility] [id number] [place] [address] Triage - EDon 02-03-2021 Triage - ED Quick Triage: The patient and/or guardian verbally acknowledges placement for services into the following (when Urgent Care Service hours are operating):emergency department Chart Review: ARRIVAL INFORMATION Mode of Arrival: private vehicle CHIEF COMPLAINT HOSEA ALVAREZ is a Male patient with a chief complaint of allergic reaction. Other Complaints: pt sts he ate some chocolate pudding and feels like he has chest pressure after pudding Triage Date/Time: 03-Feb-2021 02:57 WILMAN: 3V Vital Signs: Temperature: 97.3F ( 36.2C) taken forehead Blood Pressure: 138/99 Mean: Heart Rate: 76 Respiratory Rate: 16 Pulse Oximetry: 100% on room air, no respiratory support. Height: 5 feet 6 inches. 167.6 CM Weight: 190.0 pounds. Calculated 86.2 kg. (stated) Calculated BMI (kg/m2): 30.687 Calculated BSA (m2) 2.00 Lynda Coma Scale: Best Eye Response: (E4) spontaneous Best Motor Response: (M6) obeys commands Best Verbal Response: (V5) oriented [place] Score: 15 Cough lasting greater than 3 weeks: no Allergies: no Mask applied: yes Patient has homicidal thoughts: no Symptoms Are Negative For: anxiety, chills, congestion, diarrhea, dyspnea, lip swelling, nausea, rash, itching and tachycardia. Risk Screens Suicide Risk Screen In the Past Month: Have you wished you were or wished you could go to sleep and not wake up no In the Past Month: Have you had any actual thoughts of killing yourself no In Your Lifetime: Have you ever done anything, started to do anything, or prepared to do anything to end your life no Molina Fall Scale Screening Has the patient fallen before (or is the patient in the ED as a result of a fall) has not had a fall Does the patient have an impaired gait does not have impaired gait Is the patient cognitively impaired not cognitively impaired Interventions: Molina Fall Interventions: LOW INTERVENTIONS: *patient oriented to surroundings and call system, * patient/family falls education completed and documented, *patients fall status communicated during bedside handoff, *whiteboard updated, *mode of toileting discussed with patient, *bed in low position with brakes locked, *call light in reach, * non-skid footwear TRAVEL HISTORY Travel History Coronavirus Screening: no exposure or symptoms(1) PAIN Pain Scale Used: SHANNON Past Medical History: Past Medical History Reviewedyes Electronic Signatures: Maximiliano De La Torre (RN) (Signed 03-Feb-2021 02:59) Authored: Quick Triage, Risk Screens, Pain, Chart Review, Scores, Past Medical History Last Updated: 03-Feb-2021 02:59 by Maximiliano De La Torre (RN) References: 1. Data Referenced From Triage - ED 02-Feb-2021 19:26 Normal [facility] CBC AND DIFFERENTIALon 02-02 % AUTOMATED IMMATURE GRAN 0.3 % Normal 0.0 - 0.9 [facility] Comment on above: Result Comment: Kath ture Granulocyte Count (IG) includes promyelocytes, myelocytes and metamyelocytes but does not include bands. Percent differential counts (%) should be interpreted in the context of the absolute cell counts (cells/L). Performed By: #### C BCDF ####[facility] [id number] [place] [address] Basophils (Bld) [#/Vol] 0.02 10*3/uL Normal 0.00 - 0.10 [facility] Comment on above: Performed By: #### C BCDF ####[facility] [id number] [place] [address] Basophils/100 WBC (Bld) 0.7 % Normal 0.0 - 2.0 [facility] Comment on above: Performed By: #### C BCDF ####[facility] [id number] [place] [address] Eosinophils (Bld) [#/Vol] 0.06 10*3/uL Normal 0.00 - 0.70 [facility] Comment on above: Performed By: #### C BCDF ####[facility] [id number] [place] [address] Eosinophils/100 WBC (Bld) 2.0 % Normal 0.0 - 6.0 [facility] Comment on above: Performed By: #### C BCDF ####[facility] [id number] [place] [address] Erythrocyte distribution width (RBC) [Ratio] 12.4 % Normal 11.5 - 14.5 [facility] Comment on above: Performed By: #### C BCDF ####[facility] [id number] [place] [address] Hematocrit (Bld) [Volume fraction] 39.2 % Low 41.0 - 52.0 [facility] Comment on above: Performed By: #### C BCDF ####[id number] [place] [address] Hemoglobin (Bld) [Mass/Vol] 13.0 g/dL Low 13.5 - 17.5 [facility] Comment on above: Performed By: #### C BCDF ####[facility] [id number] [place] [address] Lymphocytes (Bld) [#/Vol] 1.06 10*3/uL Low 1.20 - 4.80 [facility] Comment on above: Performed By: #### C BCDF ####[facility] [id number] [place] [address] Lymphocytes/100 WBC (Bld) 35.7 % Normal 13.0 - 44.0 [facility] Comment on above: Performed By: #### C BCDF ####[facility] [id number] [place] [address] MCHC (RBC) [Mass/Vol] 33.2 g/dL Normal 32.0 - 36.0 [facility] Comment on above: Performed By: #### C BCDF ####[facility] [id number] [place] [address] MCV (RBC) [Entitic vol] 85 fL Normal 80 - 100 [facility] Comment on above: Performed By: #### C BCDF ####[facility] [id number] [place] [address] Monocytes (Bld) [#/Vol] 0.31 10*3/uL Normal 0.10 - 1.00 [facility] Comment on above: Performed By: #### C BCDF ####[facility] [id number] [place] [address] Monocytes/100 WBC (Bld) 10.4 % Normal 2.0 - 10.0 [facility] Comment on above: Performed By: #### C BCDF ####[facility] [id number] [place] [address] Neutrophils (Bld) [#/Vol] 1.51 10*3/uL Normal 1.20 - 7.70 [facility] Comment on above: Performed By: #### C BCDF ####[facility] [id number] [place] [address] Neutrophils/100 WBC (Bld) 50.9 % Normal 40.0 - 80.0 [facility] Comment on above: Performed By: #### C BCDF ####[facility] [id number] [place] [address] Platelets (Bld) [#/Vol] 173 10*3/uL Normal 150 - 450 [facility] Comment on above: Performed By: #### C BCDF ####[facility] [id number] [place] [address] RBC 4.62 x10E12/L Normal 4.50 - 5.90 [facility] Comment on above: Performed By: #### C BCDF ####[facility] [id number] [place] [address] WBC (Bld) [#/Vol] 3.0 10*3/uL Low 4.4 - 11.3 [facility] Comment on above: Performed By: #### C BCDF ####[facility] [id number] [place] [address] CHEST 1 VIEWon 02-02-2021 CHEST 1 VIEW STUDY: Chest Radiograph; 02/02/2021, 9:14 PM INDICATION: Chest pain. COMPARISON: CXR 02/01/2021. ACCESSION NUMBER(S): [id number] ORDERING CLINICIAN: ALBINA LOPEZ PA-C TECHNIQUE: Frontal chest was obtained at 21:14 hours. FINDINGS: CARDIOMEDIASTINAL SILHOUETTE: Cardiomediastinal silhouette is normal in size and configuration. LUNGS: Lungs are clear. ABDOMEN: No remarkable upper abdominal findings. BONES: No acute osseous changes. IMPRESSION: Clear lungs. Normal heart size. No significant change. Signed by Polly Collazo MD Electronically signed by: POLLY COLLAZO MD Normal [facility] COMPREHENSIVE PANELon 2020 Albumin [Mass/Vol] 4.2 g/dL Normal 3.4 - 5.0 [facility] Comment on above: Performed By: #### C MP ####[facility] [id number] [place] [address] ALP [Catalytic activity/Vol] 48 U/L Normal 33 - 120 [facility] Comment on above: Performed By: #### C MP ####[facility] [id number] [place] [address] ALT [Catalytic activity/Vol] 15 U/L Normal 10 - 52 [facility] Comment on above: Result Comment: Yanni ents treated with Sulfasalazine may generate falsely decreased results for ALT. Performed By: #### C MP ####[facility] [id number] [place] [address] Anion gap [Moles/Vol] 13 mmol/L Normal 10 - 20 [facility] Comment on above: Performed By: #### C MP ####[facility] [id number] [place] [address] AST [Catalytic activity/Vol] 15 U/L Normal 9 - 39 [facility] Comment on above: Performed By: #### C MP ####[facility] [id number] [place] [address] Bilirubin [Mass/Vol] 0.5 mg/dL Normal 0.0 - 1.2 [facility] Comment on above: Performed By: #### C MP ####[facility] [id number] [place] [address] Calcium [Mass/Vol] 9.1 mg/dL Normal 8.6 - 10.3 [facility] Comment on above: Performed By: #### C MP ####[facility] [id number] [place] [address] Chloride [Moles/Vol] 103 mmol/L Normal 98 - 107 [facility] Comment on above: Performed By: #### C MP ####[facility] [id number] [place] [address] Creatinine [Mass/Vol] 0.85 mg/dL Normal 0.50 - 1.30 [facility] Comment on above: Performed By: #### C MP ####[facility] [id number] [place] [address] GFR- AM. >60 Normal >60 [facility] Comment on above: Result Comment: CALC ULATIONS OF ESTIMATED GFR ARE PERFORMED USING THE MDRD STUDY EQUATION FOR THE IDMS-TRACEABLE CREATININE METHODS. CLIN CHEM 2007;53:766-72 Performed By: #### C MP ####[facility] [id number] [place] [address] GFR-NON AM. >60 Normal >60 [facility] Comment on above: Performed By: #### C MP ####[facility] [id number] [place] [address] Glucose [Mass/Vol] 95 mg/dL Normal 74 - 99 [facility] Comment on above: Performed By: #### C MP ####[facility] [id number] [place] [address] HCO3 (Bld) [Moles/Vol] 26 mmol/L Normal 21 - 32 [facility] Comment on above: Performed By: #### C MP ####[facility] [id number] [place] [address] Potassium [Moles/Vol] 3.6 mmol/L Normal 3.5 - 5.3 [facility] Comment on above: Performed By: #### C MP ####[id number] [place] [address] Protein [Mass/Vol] 6.7 g/dL Normal 6.4 - 8.2 [facility] Comment on above: Performed By: #### C MP ####[facility] [id number] [place] [address] Sodium [Moles/Vol] 138 mmol/L Normal 136 - 145 [facility] Comment on above: Performed By: #### C MP ####[facility] [id number] [place] [address] Urea nitrogen [Mass/Vol] 10 mg/dL Normal 6 - 23 [facility] Comment on above: Performed By: #### C MP ####[facility] [id number] [place] [id number] CORONAVIRUS 2019 BY PCRon DATE OF SYMPTOM ONSET [[id number]]? [id number] Normal [facility] Comment on above: Performed By: #### C OV19 ####[facility] [id number] [place] [address] Lab Specimen Source Nasal, Nasopharyngeal Normal [facility] Comment on above: Performed By: #### C OV19 ####[facility] [id number] [place] [id number] CT Angio Cheston 02-02-2021 CTA Chest vessels Normal -[facility] iology -[place] [address] Work Phone: Complete Blood Count + Diffe rentialon 02-02-2021 Basophils/100 WBC (Bld) 0.7 % 0.0 - 2.0 -Cardiology -[place] 200 Work Phone: Erythrocyte distribution width (RBC) [Ratio] 12.4 % See Below [facility] Work Phone: Comment on above: Reference Range: 11. 5 - 14.5 Hematocrit (Bld) [Volume fraction] 39.2 % below low threshold See Below [facility] Work Phone: Comment on above: Reference Range: 41. 0 - 52.0 Hemoglobin (Bld) [Mass/Vol] 13.0 g/dL below low threshold See Below [facility]StARTinitiativeIv[facility] [place] 200 Work Phone: Comment on above: Reference Range: 13. 5 - 17.5 Lymphocytes/100 WBC (Bld) 35.7 % See Below [facility] 200 Work Phone: Comment on above: Reference Range: 13. 0 - 44.0 MCHC (RBC) [Mass/Vol] 33.2 g/dL See Below [facility] 200 Work Phone: Comment on above: Reference Range: 32. 0 - 36.0 MCV (RBC) [Entitic vol] 85 fL 80 - 100 [facility] 200 Work Phone: Monocytes/100 WBC (Bld) 10.4 % 2.0 - 10.0 [facility] 200 Work Phone: Neutrophils/100 WBC (Bld) 50.9 % See Below [facility] 200 Work Phone: Comment on above: Reference Range: 40. 0 - 80.0 Platelets (Bld) [#/Vol] 173 10*3/uL 150 - 450 [facility] 200 Work Phone: RBC (Bld) [#/Vol] 4.62 {x10E12/L} See Below [facility] 200 Work Phone: Comment on above: Reference Range: 4.5 0 - 5.90 WBC (Bld) [#/Vol] 3.0 10*3/uL below low threshold 4.4 - 11.3 [facility] 200 Work Phone: Complete Blood Count + Differential 0.02 {x10E9/L} See Below [facility] 200 Work Phone: Comment on above: Reference Range: 0.0 0 - 0.10 Complete Blood Count + Differential 0.06 {x10E9/L} See Below [facility] 200 Work Phone: Comment on above: Reference Range: 0.0 0 - 0.70 Complete Blood Count + Differential 0.31 {x10E9/L} See Below [facility] [email or web address] Work Phone: Comment on above: Reference Range: 0.1 0 - 1.00 Complete Blood Count + Differential 1.06 {x10E9/L} below low threshold See Below [facility] 200 Work Phone: Comment on above: Reference Range: 1.2 0 - 4.80 Complete Blood Count + Differential 1.51 {x10E9/L} See Below [facility] [email or web address] Work Phone: Comment on above: Reference Range: 1.2 0 - 7.70 Complete Blood Count + Differential 2.0 % 0.0 - 6.0 [facility] [email or web address] Work Phone: Complete Blood Count + Differential 0.3 % 0.0 - 0.9 [facility] [email or web address] Work Phone: Comment on above: Immature Granulocyte Count (IG) includes promyelocytes, myelocytes and metamyelocytes but does not include bands. Percent differential counts (%) should be interpreted in the context of the absolute cell counts (cells/L). Coronavirus 2019 RNA by PCR, Symptomaticon 02-02-2021 Date and time of symptom onset [id number] [facility] [email or web address] Work Phone: Coronavirus 2019 RNA by PCR, Symptomatic Not detected Normal See Below [facility] [email or web address] Work Phone: Comment on above: SOURCE: Nasal, Nasop haryngealReference Range: Not Detected.This assay is designed to detect the RdRp gene of SARS-CoV-2 via nucleic acid amplification. A Not Detected result does not preclude COVID-19 infection since the adequacy of sample collection and/or low viral burden may result in presence of viral nucleic acids below the clinical sensitivity of this test method. Fact sheet for providers: www.fda.gov/media/820296/downloadFact sheet for patients: www.fda.gov/media/562839/downloadThis test has received FDA Emergency Use Authorization (EUA) and has been verified by [facility] ([facility] This test is only authorized for the duration of time that circumstances exist to justify the authorization of the emergency use of in vitro diagnostic tests for the detection of SARS-CoV-2 virus and/or diagnosis of COVID-19 infection under section 564(b)(1) of the Act, 21 U.S.C. 360bbb-3(b)(1), unless the authorization is terminated or revoked sooner. [facility] is certified under CLIA-88 as qualified to perform high complexity testing. Testing is performed in the [facility] laboratories located at [address] [place] [address]. EMR ADDONon 02-02-2021 ADDON CONFIRMATION Canceled Normal [facility] Comment on above: Order Comment: TEST EMR ADDON WAS CANCELLED, 02/02/2021 21:41 Testing already performed.. Performed By: #### E MRAD ####[facility] [id number] [place] [id number] LIPASEon 02-02-2021 Lipase [Catalytic activity/Vol] 16 U/L Normal 9 - 82 [facility] Comment on above: Result Comment: Jocelyn puncture immediately after or during the administration of Metamizole may lead to falsely low results. Testing should be performed immediately prior to Metamizole dosing. B-ligiut-u-benzoquinone imine (metabolite of Acetaminophen) will generate erroneously low results in samples for patients that have taken toxic doses of acetaminophen. Performed By: #### L IPAS ####[facility] [id number] [place] [id number] Laboratory - Chemistry and C hemistry - challengeon 02-02-2021 Albumin BCP dye [Mass/Vol] 4.2 g/dL 3.4 - 5.0 MP-Cardiology -[place] 200 Work Phone: ALP [Catalytic activity/Vol] 48 U/L 33 - 120 MP-Cardiology -[place] 200 Work Phone: ALT With P-5'-P [Catalytic activity/Vol] 15 U/L 10 - 52 -[facility] 200 Work Phone: Comment on above: Patients treated wit h Sulfasalazine may generate falsely decreased results for ALT. Anion gap [Moles/Vol] 13 mmol/L 10 - 20 [facility] 200 Work Phone: AST With P-5'-P [Catalytic activity/Vol] 15 U/L 9 - 39 [facility] 200 Work Phone: Bilirubin [Mass/Vol] 0.5 mg/dL 0.0 - 1.2 -C [facility] 200 Work Phone: Calcium [Mass/Vol] 9.1 mg/dL 8.6 - 10.3 -Car [facility] 200 Work Phone: Chloride [Moles/Vol] 103 mmol/L 98 - 107 MP-C [facility] 200 Work Phone: CO2 [Moles/Vol] 26 mmol/L 21 - 32 -Cardio logy [facility] 200 Work Phone: Creatinine [Mass/Vol] 0.85 mg/dL See Below [facility] 200 Work Phone: Comment on above: Reference Range: 0.5 0 - 1.30 Glucose [Mass/Vol] 95 mg/dL 74 - 99 MP-Car diology -[facility] [place] 200 Work Phone: Potassium [Moles/Vol] 3.6 mmol/L 3.5 - 5.3 - Cardiology -[facility] [place] 200 Work Phone: Protein [Mass/Vol] 6.7 g/dL 6.4 - 8.2 MP-Car diology -[facility] [place] 200 Work Phone: Sodium [Moles/Vol] 138 mmol/L 136 - 145 MP-Car diology -[place] 200 Work Phone: Urea nitrogen [Mass/Vol] 10 mg/dL 6 - 23 MP-Cardiology -[place] 200 Work Phone: Lipase, Serumon 02-02-2021 Lipase [Catalytic activity/Vol] 16 U/L 9 - 82 MP-Cardiology -[place] 200 Work Phone: Comment on above: Venipuncture immedia tely after or during the administration of Metamizole may lead to falsely low results. Testing should be performed immediately prior to Metamizole dosing. P-khmeby-f-benzoquinone imine (metabolite of Acetaminophen) will generate erroneously low results in samples for patients that have taken toxic doses of acetaminophen. No Panel Informationon 02-02 [email or web address]?RetrieveTestByDateTim e?[id number]&Da te=02-02-2021&Time=23%3a 40%3a42%3a00&TestType=EC G&Site=2&OutputType=PDF& Ext=PDF MP-Cardiology -[place] 200 Work Phone: Sinus bradycardia MP-Card iology -[place] 200 Work Phone: Borderline Abnormal MP-Ca rdiology -[place] 200 Work Phone: [phone] MP-Cardiology -[place] 200 Work Phone: [phone] MP-Cardiology -[place] 200 Work Phone: [phone] MP-Cardiology -[place] 200 Work Phone: 105 1 MP-Cardiology -[place] 200 Work Phone: 207 1 MP-Cardiology -[place] 200 Work Phone: 9 1 MP-Cardiology -[place] 200 Work Phone: 10 1 MP-Cardiology -[place] 200 Work Phone: -4 1 MP-Cardiology -[place] 200 Work Phone: 43 1 MP-Cardiology -[place] 200 Work Phone: 385 1 MP-Cardiology -[place] 200 Work Phone: 406 1 MP-Cardiology -[place] 200 Work Phone: 102 1 MP-Cardiology -[place] 200 Work Phone: 204 1 MP-Cardiology -[place] 200 Work Phone: 54 1 MP-Cardiology -[place] 200 Work Phone: >60 >60 MP-Cardiology -[place] 200 Work Phone: Comment on above: CALCULATIONS OF NIKOLE MATED GFR ARE PERFORMED USING THE MDRD STUDY EQUATION FOR THE IDMS-TRACEABLE CREATININE METHODS. CLIN CHEM 2007;53:766-72 [email or web address]?RetrieveTestByDateTim e?[id number]=[id number]&Da te=02-02-2021&Time=19%3a 26%3a56%3a00&TestType=EC G&Site=2&OutputType=PDF& Ext=PDF MP-Cardiology -[place] 200 Work Phone: [phone] Normal sinus rhythm MP-Ca rdiology -[place] 200 Work Phone: Borderline Abnormal MP-Ca rdiology -[place] 200 Work Phone: [phone] MP-Cardiology -[place] 200 Work Phone: [phone] MP-Cardiology -[place] 200 Work Phone: [phone] MP-Cardiology -[place] 200 Work Phone: 134 1 MP-Cardiology -[place] 200 Work Phone: 216 1 MP-Cardiology -[place] 200 Work Phone: 12 1 MP-Cardiology -[place] 200 Work Phone: 4 1 MP-Cardiology -[place] 200 Work Phone: -24 1 MP-Cardiology -[place] 200 Work Phone: 21 1 MP-Cardiology -[place] 200 Work Phone: [phone] 1 MP-Cardiology -[place] 200 Work Phone: [phone] 1 MP-Cardiology -[place] 200 Work Phone: [phone] 98 1 MP-Cardiology -[place] 200 Work Phone: 164 1 MP-Cardiology -[place] 200 Work Phone: 75 1 MP-Cardiology -[place] 200 Work Phone: [phone] Radiologyon 02-02-2021 XR Chest Single view Normal MP-C ardiology -[place] 200 Work Phone: [phone] Risk Screen - Adult Emergenc yon 02-02-2021 Risk Screen - Adult Emergency Preferred Language: Preferred Language: Preferred Language for Discussing Health Care (patient/designee)Fran villalta Advanced Directives: Advance Directive/DNRno Family Violence Adult: Abuse Screen: Are you or have you been threatened or abused physically, emotionally, or sexually by anyoneno Learning Assessment (Patient): Learning Assessment (Patient): Patient is Able to be Assessed for Learningyes Factors Influencing Readiness to Learnanxiety Factors that Impact Ability to Learnnone Devices/Methods Used to Communicatenone Learning Preferencesverbal instruction Cultural Considerationsnone Developmental Considerationsnone Zoroastrian Considerationsnone Learning Assessment (Other Learner): Learning Assessment (Other Learner): Other learner availableno Pressure Injury/TB/Substance: Pressure Injury: Do you have a coughno Admission Risk Screen: Significant IndicatorsComplete CAGE: CAGE: Is this an injured patient at a Trauma Center ([facility]/[place] /[place]): no Electronic Signatures: Ellie Rodriguez (RN) (Signed 02-Feb-2021 19:36) Authored: Preferred Language, Advanced Directives, Family Violence Adult, Learning Assessment (Patient), Learning Assessment (Other Learner), Pressure Injury/TB/Substance, Pressure Injury, CAGE Last Updated: 02-Feb-2021 19:36 by Ellie Rodriguez ([place]) Normal [facility] TROPONIN Ion 02-02-2021 Troponin I.cardiac [Mass/Vol] ng/mL Normal 0.00 - 0.03 [facility] Comment on above: Result Comment: LESS THAN 0.04 NG/ML: NEGATIVE REPEAT TESTING IN THREE TO SIX HOURS IF CLINICALLY INDICATED. 0.04 - 0.5 NG/ML: CONSISTENT WITH POSSIBLE CARDIAC DAMAGE AND POSSIBLE INCREASED CLINICAL RISK. SERIAL MEASUREMENTS MAY HELP ASSESS EXTENT OF MYOCARDIAL DAMAGE. >0.5 NG/ML: CONSISTENT WITH CARDIAC DAMAGE, INCREASED CLINICAL RISK AND MYOCARDIAL INFARCTION. SERIAL MEASUREMENTS MAY HELP ASSESS EXTENT OF MYOCARDIAL DAMAGE. . Note: Troponin I testing is performed using different testing methodology at [facility] than at other [facility]. Direct result comparisons should only be made within the same method. Performed By: #### T ROP2 ####[facility] [id number] [place] [address] Triage - EDon 02-02-2021 Triage - ED Chart Review: ARRIVAL INFORMATION Mode of Arrival: ambulance Agency: [facility] Agency Name: [place] CHIEF COMPLAINT HOSEA ALVAREZ is a Male patient with a chief complaint of multiple medical complaints. Onset of the Complaint: 02-Feb-2021 Other Complaints: Pt states that he has CP, back pain and is worried about being constipated. Pt states that he was seen at the [facility] and was diagnosed with a thoracic aneurysm and discharged today. Triage Date/Time: 02-Feb-2021 19:26 WILMAN: 3V Pain Rating (0-10): 5 = Moderate Pain location: Chest/back Vital Signs: Temperature: 97.6F ( 36.4C) taken noncontact, forehead Blood Pressure: 144/98 Mean: Heart Rate: 81 Respiratory Rate: 18 Pulse Oximetry: 100% on room air, no respiratory support. Height: 5 feet 6 inches. 167.6 CM Weight: 160.9 pounds. Calculated 73.0 kg. (stated) Calculated BMI (kg/m2): 25.988 Calculated BSA (m2) 1.84 Cough lasting greater than 3 weeks: no Allergies: unknown Mask applied: yes Patient has homicidal thoughts: no Symptoms Are POSITIVE For: pain Symptoms Are Negative For: anxiety, chills, diaphoresis, dyspnea, headache, loss of consciousness, nausea, numbness, tingling and weakness Risk Screens Suicide Risk Screen In the Past Month: Have you wished you were or wished you could go to sleep and not wake up no In the Past Month: Have you had any actual thoughts of killing yourself no In Your Lifetime: Have you ever done anything, started to do anything, or prepared to do anything to end your life no Molina Fall Scale Screening Has the patient fallen before (or is the patient in the ED as a result of a fall) has not had a fall Does the patient have an impaired gait does not have impaired gait Is the patient cognitively impaired not cognitively impaired Interventions: Molina Fall Interventions: LOW INTERVENTIONS: *patient oriented to surroundings and call system, * patient/family falls education completed and documented, *patients fall status communicated during bedside handoff, *whiteboard updated, *mode of toileting discussed with patient, *bed in low position with brakes locked, *call light in reach, * non-skid footwear TRAVEL HISTORY Travel History Coronavirus Screening: no exposure or symptoms PAIN Pain Scale Used: SHANNON Pain Rating (0-10): 5 = Moderate Past Medical History: Past Medical History Reviewedno Electronic Signatures: Nelly Dukes (EMT-P) (Signed 02-Feb-2021 19:33) Authored: Quick Triage, Risk Screens, Pain, Chart Review, Scores, Past Medical History Last Updated: 02-Feb-2021 19:33 by Nelly Dukes (EMT-P) Normal [facility] Troponin I, Serumon 02-03-20 21 Troponin I.cardiac [Mass/Vol] ng/mL See Below FLORINDA-Cardiology -[place] 200 Work Phone: Comment on above: Reference Range: 0.0 0 - 0.03LESS THAN 0.04 NG/ML: NEGATIVEREPEAT TESTING IN THREE TO SIX HOURSIF CLINICALLY INDICATED.0.04 - 0.5 NG/ML: CONSISTENT WITH POSSIBLECARDIAC DAMAGE AND POSSIBLE INCREASEDCLINICAL RISK.SERIAL MEASUREMENTS MAY HELP ASSESS EXTENT OFMYOCARDIAL DAMAGE.>0.5 NG/ML: CONSISTENT WITH CARDIAC DAMAGE,INCREASED CLINICAL RISK AND MYOCARDIALINFARCTION. SERIAL MEASUREMENTS MAY HELPASSESS EXTENT OF MYOCARDIAL DAMAGE..Note: Troponin I testing is performed using different testing methodology at [facility] than at other [facility]. Direct result comparisons should only be made within the same method. Troponin I.cardiac [Mass/Vol] ng/mL See Below [place] [address] Work Phone: Comment on above: Reference Range: 0.0 0 - 0.03LESS THAN 0.04 NG/ML: NEGATIVEREPEAT TESTING IN THREE TO SIX HOURSIF CLINICALLY INDICATED.0.04 - 0.5 NG/ML: CONSISTENT WITH POSSIBLECARDIAC DAMAGE AND POSSIBLE INCREASEDCLINICAL RISK.SERIAL MEASUREMENTS MAY HELP ASSESS EXTENT OFMYOCARDIAL DAMAGE.>0.5 NG/ML: CONSISTENT WITH CARDIAC DAMAGE,INCREASED CLINICAL RISK AND MYOCARDIALINFARCTION. SERIAL MEASUREMENTS MAY HELPASSESS EXTENT OF MYOCARDIAL DAMAGE..Note: Troponin I testing is performed using different testing methodology at [facility] than at other [facility]. Direct result comparisons should only be made within the same method. Complete Blood Count + Lorena tan 02-01-2021 Basophils/100 WBC (Bld) 0.3 % 0.0 - 2.0 [place] [address] Work Phone: Erythrocyte distribution width (RBC) [Ratio] 12.2 % See Below [place] [address] Work Phone: Comment on above: Reference Range: 11. 5 - 14.5 Hematocrit (Bld) [Volume fraction] 36.0 % below low threshold See Below [place] [address] Work Phone: Comment on above: Reference Range: 41. 0 - 52.0 Hemoglobin (Bld) [Mass/Vol] 12.7 g/dL below low threshold See Below [place] [address] Work Phone: Comment on above: Reference Range: 13. 5 - 17.5 Lymphocytes/100 WBC (Bld) 28.1 % See Below [place] [address] Work Phone: Comment on above: Reference Range: 13. 0 - 44.0 MCHC (RBC) [Mass/Vol] 35.3 g/dL See Below [facility] 200 Work Phone: Comment on above: Reference Range: 32. 0 - 36.0 MCV (RBC) [Entitic vol] 83 fL 80 - 100 [facility]ST[facility] 200 Work Phone: Monocytes/100 WBC (Bld) 9.7 % 2.0 - 10.0 [facility]ENTERStARTinitiativeIv[facility] - [place] 200 Work Phone: Neutrophils/100 WBC (Bld) 58.4 % See Below [facility] 200 Work Phone: Comment on above: Reference Range: 40. 0 - 80.0 Platelets (Bld) [#/Vol] 167 10*3/uL 150 - 450 [facility]ENTERStARTinitiativeIv[facility] [place] 200 Work Phone: [phone] RBC (Bld) [#/Vol] 4.35 {x10E12/L} below low threshold See Below [facility]ARTinitiativeI[facility] [place] 200 Work Phone: Comment on above: Reference Range: 4.5 0 - 5.90 WBC (Bld) [#/Vol] 3.5 10*3/uL below low threshold 4.4 - 11.3 [facility]StARTinitiativeI[facility] [place] 200 Work Phone: [phone] Complete Blood Count + Differential 0.01 {x10E9/L} See Below [facility] [place] 200 Work Phone: Comment on above: Reference Range: 0.0 0 - 0.10 Complete Blood Count + Differential 0.11 {x10E9/L} See Below [facility] TechnologiesI[facility] [place] 200 Work Phone: Comment on above: Reference Range: 0.0 0 - 0.70 Complete Blood Count + Differential 0.34 {x10E9/L} See Below [facility]StARTinitiativeI[facility] [place] 200 Work Phone: Comment on above: Reference Range: 0.1 0 - 1.00 Complete Blood Count + Differential 0.98 {x10E9/L} below low threshold See Below [facility] 200 Work Phone: Comment on above: Reference Range: 1.2 0 - 4.80 Complete Blood Count + Differential 2.04 {x10E9/L} See Below [facility] 200 Work Phone: Comment on above: Reference Range: 1.2 0 - 7.70 Complete Blood Count + Differential 3.2 % 0.0 - 6.0 [facility] [email or web address] Work Phone: Complete Blood Count + Differential 0.3 % 0.0 - 0.9 [facility] [email or web address] Work Phone: Comment on above: Immature Granulocyte Count (IG) includes promyelocytes, myelocytes and metamyelocytes but does not include bands. Percent differential counts (%) should be interpreted in the context of the absolute cell counts (cells/L). Complete Blood Count + Differential 0.0 {/100_WBC} 0.0-0.0 [place] [address] Work Phone: Laboratory - Chemistry and C hemistry - challengeon 02-01-2021 Albumin BCP dye [Mass/Vol] 4.1 g/dL 3.4 - 5.0 [facility] [email or web address] Work Phone: ALP [Catalytic activity/Vol] 48 U/L 33 - 120 [place] [address] Work Phone: ALT With P-5'-P [Catalytic activity/Vol] 15 U/L 10 - 52 [facility] [email or web address] Work Phone: Comment on above: Patients treated wit h Sulfasalazine may generate falsely decreased results for ALT. Anion gap [Moles/Vol] 14 mmol/L 10 - 20 [facility] 200 Work Phone: AST With P-5'-P [Catalytic activity/Vol] 15 U/L 9 - 39 [facility] [email or web address] Work Phone: Bilirubin [Mass/Vol] 0.5 mg/dL 0.0 - 1.2 -C arology [facility] 200 Work Phone: Calcium [Mass/Vol] 9.3 mg/dL 8.6 - 10.6 -[facility] 200 Work Phone: Chloride [Moles/Vol] 103 mmol/L 98 - 107 -[facility] 200 Work Phone: CO2 [Moles/Vol] 26 mmol/L 21 - 32 -Cardio logy [facility] 200 Work Phone: Creatinine [Mass/Vol] 0.87 mg/dL See Below [facility] 200 Work Phone: Comment on above: Reference Range: 0.5 0 - 1.30 Glucose [Mass/Vol] 118 mg/dL above high threshold 74 - 99 [facility] 200 Work Phone: Potassium [Moles/Vol] 3.6 mmol/L 3.5 - 5.3 [facility] 200 Work Phone: Protein [Mass/Vol] 6.4 g/dL 6.4 - 8.2 -[facility] 200 Work Phone: Sodium [Moles/Vol] 139 mmol/L 136 - 145 -Car [facility] 200 Work Phone: Urea nitrogen [Mass/Vol] 10 mg/dL 6 - 23 [facility] 200 Work Phone: Lipase, Serumon 02-01-2021 Lipase [Catalytic activity/Vol] 18 U/L 9 - 82 [facility] 200 Work Phone: Comment on above: Venipuncture immedia tely after or during the administration of Metamizole may lead to falsely low results. Testing should be performed immediately prior to Metamizole dosing. S-nczlbx-v-benzoquinone imine (metabolite of Acetaminophen) will generate erroneously low results in samples for patients that have taken toxic doses of acetaminophen. No Panel Informationon 02-01 >60 >60 MP-Cardiology -[place] 200 Work Phone: [phone] Comment on above: CALCULATIONS OF NIKOLE MATED GFR ARE PERFORMED USING THE MDRD STUDY EQUATION FOR THE IDMS-TRACEABLE CREATININE METHODS. CLIN CHEM 2007;53:766-72 [email or web address]?RetrieveTestByDateTim e?[id number]&Da te=08-27-2021&Time=19%3a 03%3a19%3a00&TestType=EC G&Site=1&OutputType=PDF& Ext=PDF [facility]-Cardiology -[place] 200 Work Phone: Please see ED Provid er Note for formal interpretation MP-Cardiology -[place] [facility] 200 Work Phone: Normal MP-Cardiology -[place] 200 Work Phone: [phone] MP-Cardiology -[place] 200 Work Phone: [phone] MP-Cardiology -[place] 200 Work Phone: 198 1 MP-Cardiology -[place] 200 Work Phone: 138 1 MP-Cardiology -[place] 200 Work Phone: [phone] MP-Cardiology -[place] 200 Work Phone: 12 1 MP-Cardiology -[place] 200 Work Phone: 28 1 MP-Cardiology -[place] 200 Work Phone: 5 1 MP-Cardiology -[place] 200 Work Phone: 43 1 MP-Cardiology -[place] 200 Work Phone: 400 1 MP-Cardiology -[place] [facility] 200 Work Phone: [phone] 1 MP-Cardiology -[place] [facility] 200 Work Phone: 98 1 -[facility] 200 Work Phone: [phone] [facility] 200 Work Phone: [phone] -[facility] 200 Work Phone: Radiologyon 02-01-2021 XR Chest 2 Views Normal [facility] ology -[facility] [place] 200 Work Phone: Troponin I, Serumon 02-02-20 Troponin I.cardiac [Mass/Vol] ng/mL See Below [facility] 200 Work Phone: Comment on above: Reference Range: 0.0 0 - 0.03LESS THAN 0.04 NG/ML: NEGATIVEREPEAT TESTING IN THREE TO SIX HOURSIF CLINICALLY INDICATED.0.04 - 0.5 NG/ML: CONSISTENT WITH POSSIBLECARDIAC DAMAGE AND POSSIBLE INCREASEDCLINICAL RISK.SERIAL MEASUREMENTS MAY HELP ASSESS EXTENT OFMYOCARDIAL DAMAGE.>0.5 NG/ML: CONSISTENT WITH CARDIAC DAMAGE,INCREASED CLINICAL RISK AND MYOCARDIALINFARCTION. SERIAL MEASUREMENTS MAY HELPASSESS EXTENT OF MYOCARDIAL DAMAGE..Note: Troponin I testing is performed using different testing methodology at [facility] than at other [facility] [facility]. Direct result comparisons should only be made within the same method.. Biotin interference may cause falsely decreased results. Patients taking a Biotin dose of up to 5 mg/day should refrain from taking Biotin for 24 hours before sample collection. Providers may contact their laboratory for further information. Coronavirus 2019 RNA by PCR, Screening Asymptomticon 01-30-2021 Coronavirus 2019 RNA by PCR, Screening Asymptomtic Not detected Normal See Below [facility] 200 Work Phone: Comment on above: SOURCE: Nasal, Nasop haryngealReference Range: Not Detected.This assay is designed to detect the ORF1ab and/or S genes of SARS-CoV-2 via nucleic acid amplification. A Not Detected result does not preclude 2019-nCoV infection since the adequacy of sample collection and/or low viral burden may result in presence of viral nucleic acids below the clinical sensitivity of this test method. Fact sheet for providers: www.fda.gov/media/615773/downloadFact sheet for patients: www.fda.gov/media/822832/downloadThis test has received FDA Emergency Use Authorization (EUA) and has been verified by [facility] ([facility]). This test is only authorized for the duration of time that circumstances exist to justify the authorization of the emergency use of in vitro diagnostic tests for the detection of SARS-CoV-2 virus and/or diagnosis of COVID-19 infection under section 564(b)(1) of the Act, 21 U.S.C. 360bbb-3(b)(1), unless the authorization is terminated or revoked sooner. [facility] is certified under CLIA-88 as qualified to perform high complexity testing. Testing is performed in the [facility] laboratories located at [address] [place] [address]. Complete Blood Count + Diffe renilyaon 01-29-2021 Basophils/100 WBC (Bld) 0.5 % 0.0 - 2.0 [employer] 200 Work Phone: Erythrocyte distribution width (RBC) [Ratio] 12.4 % See Below [facility] 200 Work Phone: Comment on above: Reference Range: 11. 5 - 14.5 Hematocrit (Bld) [Volume fraction] 35.5 % below low threshold See Below [facility] 200 Work Phone: Comment on above: Reference Range: 41. 0 - 52.0 Hemoglobin (Bld) [Mass/Vol] 12.1 g/dL below low threshold See Below [facility]arrato[facility] 200 Work Phone: Comment on above: Reference Range: 13. 5 - 17.5 Lymphocytes/100 WBC (Bld) 19.5 % See Below [facility] 200 Work Phone: Comment on above: Reference Range: 13. 0 - 44.0 MCHC (RBC) [Mass/Vol] 34.1 g/dL See Below [facility] 200 Work Phone: Comment on above: Reference Range: 32. 0 - 36.0 MCV (RBC) [Entitic vol] 84 fL 80 - 100 [facility] 200 Work Phone: Monocytes/100 WBC (Bld) 9.6 % 2.0 - 10.0 [facility] 200 Work Phone: Neutrophils/100 WBC (Bld) 66.8 % See Below [facility] 200 Work Phone: Comment on above: Reference Range: 40. 0 - 80.0 Platelets (Bld) [#/Vol] 157 10*3/uL 150 - 450 [facility] 200 Work Phone: RBC (Bld) [#/Vol] 4.25 {x10E12/L} below low threshold See Below [facility] 200 Work Phone: Comment on above: Reference Range: 4.5 0 - 5.90 WBC (Bld) [#/Vol] 4.2 10*3/uL below low threshold 4.4 - 11.3 [facility] 200 Work Phone: Complete Blood Count + Differential 0.02 {x10E9/L} See Below [facility] 200 Work Phone: Comment on above: Reference Range: 0.0 0 - 0.10 Complete Blood Count + Differential 0.14 {x10E9/L} See Below [facility] 200 Work Phone: Comment on above: Reference Range: 0.0 0 - 0.70 Complete Blood Count + Differential 0.40 {x10E9/L} See Below [facility] 200 Work Phone: Comment on above: Reference Range: 0.1 0 - 1.00 Complete Blood Count + Differential 0.81 {x10E9/L} below low threshold See Below [facility] 200 Work Phone: Comment on above: Reference Range: 1.2 0 - 4.80 Complete Blood Count + Differential 2.78 {x10E9/L} See Below [facility] 200 Work Phone: Comment on above: Reference Range: 1.2 0 - 7.70 Complete Blood Count + Differential 3.4 % 0.0 - 6.0 [facility] 200 Work Phone: Complete Blood Count + Differential 0.2 % 0.0 - 0.9 [place] [address] Work Phone: Comment on above: Immature Granulocyte Count (IG) includes promyelocytes, myelocytes and metamyelocytes but does not include bands. Percent differential counts (%) should be interpreted in the context of the absolute cell counts (cells/L). Laboratory - Chemistry and C hemistry - challengeon 01-29-2021 Albumin BCP dye [Mass/Vol] 4.1 g/dL 3.4 - 5.0 [facility] [email or web address] Work Phone: ALP [Catalytic activity/Vol] 39 U/L 33 - 120 [place] [address] Work Phone: ALT With P-5'-P [Catalytic activity/Vol] 17 U/L 10 - 52 [facility] [email or web address] Work Phone: Comment on above: Patients treated wit h Sulfasalazine may generate falsely decreased results for ALT. Anion gap [Moles/Vol] 11 mmol/L 10 - 20 [facility] 200 Work Phone: AST With P-5'-P [Catalytic activity/Vol] 14 U/L 9 - 39 [facility] 200 Work Phone: Bilirubin [Mass/Vol] 0.3 mg/dL 0.0 - 1.2 -C ardiology [facility] 200 Work Phone: Calcium [Mass/Vol] 9.0 mg/dL 8.6 - 10.3 -Car diology [facility] 200 Work Phone: Chloride [Moles/Vol] 103 mmol/L 98 - 107 -C ardiology -[place] 200 Work Phone: [phone] CO2 [Moles/Vol] 27 mmol/L 21 - 32 -Cardio logy -[facility] 200 Work Phone: Creatinine [Mass/Vol] 0.88 mg/dL See Below [facility] Cardiology [facility] 200 Work Phone: Comment on above: Reference Range: 0.5 0 - 1.30 Glucose [Mass/Vol] 102 mg/dL above high threshold 74 - 99 -Cardiology -[facility] 200 Work Phone: Potassium [Moles/Vol] 3.6 mmol/L 3.5 - 5.3 [facility] -[facility] 200 Work Phone: Protein [Mass/Vol] 6.6 g/dL 6.4 - 8.2 -Car dioly -[facility] 200 Work Phone: Sodium [Moles/Vol] 137 mmol/L 136 - 145 -Car dioly -[facility] 200 Work Phone: Urea nitrogen [Mass/Vol] 10 mg/dL 6 - 23 -Cardiology -[facility] 200 Work Phone: Laboratory - Coagulationon 0 01-29-2021 INR Coag (PPP) [Relative time] 1.1 {INR} 0.9 - 1.1 [facility] [place] 200 Work Phone: PT Coag (PPP) [Time] 12.7 s See Below [facility] 200 Work Phone: Comment on above: Reference Range: 10. 1 - 13.3 Magnesium, Serumon Magnesium [Mass/Vol] 1.90 mg/dL See Below [facility] ardiology -[facility] 200 Work Phone: Comment on above: Reference Range: 1.6 0 - 2.40 No Panel Informationon 01-29 >60 >60 [facility] [email or web address] 200 Work Phone: Comment on above: CALCULATIONS OF NIKOLE MATED GFR ARE PERFORMED USING THE MDRD STUDY EQUATION FOR THE IDMS-TRACEABLE CREATININE METHODS. CLIN CHEM 2007;53:766-72 27 pg/mL 0 - 99 [facility] [employer] [facility] 200 Work Phone: Comment on above: . <100 pg/mL - Heart failure ilyuetok324-248 pg/mL - Intermediate probability of acute heart. failure exacerbation. Correlate with clinical. context and patient history. >=300 pg/mL - Heart Failure likely. Correlate with clinical. context and patient history.BNP testing is performed using different testing methodology at [facility] than at other [facility]. Direct result comparisons should only be made within the same method. Radiologyon 01-29-2021 XR Chest Single view Normal - ardiology -[employer] Work Phone: TH CT Angio Chest For PEon 0 01-29-[address] Angio Chest For PE Normal [facility] [place] [email or web address] Work Phone: Troponin I, Serumon 01-30-20 21 Troponin I.cardiac [Mass/Vol] ng/mL See Below [facility] ClinicIr[facility]perian Work Phone: Comment on above: Reference Range: 0.0 0 - 0.03LESS THAN 0.04 NG/ML: NEGATIVEREPEAT TESTING IN THREE TO SIX HOURSIF CLINICALLY INDICATED.0.04 - 0.5 NG/ML: CONSISTENT WITH POSSIBLECARDIAC DAMAGE AND POSSIBLE INCREASEDCLINICAL RISK.SERIAL MEASUREMENTS MAY HELP ASSESS EXTENT OFMYOCARDIAL DAMAGE.>0.5 NG/ML: CONSISTENT WITH CARDIAC DAMAGE,INCREASED CLINICAL RISK AND MYOCARDIALINFARCTION. SERIAL MEASUREMENTS MAY HELPASSESS EXTENT OF MYOCARDIAL DAMAGE..Note: Troponin I testing is performed using different testing methodology at [facility] than at other [facility]. Direct result comparisons should only be made within the same method. Troponin I.cardiac [Mass/Vol] ng/mL See Below [facility] [employer]PuneetS[employer] Work Phone: Comment on above: Reference Range: 0.0 0 - 0.03LESS THAN 0.04 NG/ML: NEGATIVEREPEAT TESTING IN THREE TO SIX HOURSIF CLINICALLY INDICATED.0.04 - 0.5 NG/ML: CONSISTENT WITH POSSIBLECARDIAC DAMAGE AND POSSIBLE INCREASEDCLINICAL RISK.SERIAL MEASUREMENTS MAY HELP ASSESS EXTENT OFMYOCARDIAL DAMAGE.>0.5 NG/ML: CONSISTENT WITH CARDIAC DAMAGE,INCREASED CLINICAL RISK AND MYOCARDIALINFARCTION. SERIAL MEASUREMENTS MAY HELPASSESS EXTENT OF MYOCARDIAL DAMAGE..Note: Troponin I testing is performed using different testing methodology at [facility] than at [facility]. Direct result comparisons should only be made within the same method. ECG COMPLETEon 02-04-2020 ECG COMPLETE NAME : SOFYA ALVAREZ ND PID : [id number] : 1970 Gender : Male Race : ORD : [id number] Procedure Date : Feb 04 2020 19:39:41 Edit Date : Feb 05 2020 17:02:40 Diagnosis:Normal sinus rhythm Normal ECG No previous ECGs available Confirmed by ELIZABET GARZA MD ([id number]) on 02/05/2020 5:02:36 PM Ventricular Rate : 75 BPM Atrial Rate : 75 BPM P-R Interval : 172 ms QRS Duration : 98 ms Q-T Interval : 362 ms QTC Calculation(Bezet) : 404 ms P [place] : 39 degrees R [place] : -19 degrees T [place] : 18 degrees Test Reason : Location :EDED12 Overread By : ELIZABET GARZA MD Editted By : ELIZABET GARZA MD Referred By : , Acquired by : [id number], [facility] ED NOTEon 02-04-2020 ED NOTE HNO ID: [id number] Author: Arie Becker RN Service: ? Author Type: Registered Nurse Type: ED Notes Filed: 02/04/2020 9:22 PM Note Text: Discharge instructions, prescriptions, and follow up care instructions reviewed with patient. Patient verbalized understanding. Patient was instructed to come back to the ED if symptoms worsened. Patient left the ED ambulatory with a steady gait. [facility] ED NOTE HNO ID: [id number] Author: Arie Becker RN Service: ? Author Type: Registered Nurse Type: ED Notes Filed: 02/04/2020 9:11 PM Note Text: Patient speaking with [email or web address] at this time. [facility] ED NOTE HNO ID: [id number] Author: Arie Becker RN Service: ? Author Type: Registered Nurse Type: ED Notes Filed: 02/04/2020 9:11 PM Note Text: Nurse to room to discharge patient. Patient asleep and states I didn't call anyone yet. Explained to patient that he was up for discharge and would need to call for a ride. Patient requesting [employer] phone number. Patient provided with Inaaya's phone number. [facility] ED NOTE HNO ID: [id number] Author: Arie Becker RN Service: ? Author Type: Registered Nurse Type: ED Notes Filed: 02/04/2020 9:03 PM Note Text: Patient provided with cordless phone. [facility] ED NOTE HNO ID: [id number] Author: Arie Becker RN Service: ? Author Type: Registered Nurse Type: ED Notes Filed: 02/04/2020 9:03 PM Note Text: BROOKLYNN Pang at patients bedside speaking with patient. [facility] ED NOTE HNO ID: [id number] Author: Arie Becker RN Service: ? Author Type: Registered Nurse Type: ED Notes Filed: 02/04/2020 8:57 PM Note Text: Patient requesting to speak with charge nurse regarding how he was to get back to his car. Explained to patient that the [facility] does not provide rides and its the patients responsibility to provide transportation. Patient requesting to speak with the charge nurse. BROOKLYNN Pang notified. [facility] ED NOTE HNO ID: [id number] Author: Arie Becker RN Service: ? Author Type: Registered Nurse Type: ED Notes Filed: 02/04/2020 8:55 PM Note Text: Patient provided with can of gingerale. [facility] ED NOTE HNO ID: [id number] Author: Arie Becker RN Service: ? Author Type: Registered Nurse Type: ED Notes Filed: 02/04/2020 8:50 PM Note Text: Natalia GLASSBLOWER at patients bedside speaking with patient. [facility] ED NOTE HNO ID: [id number] Author: Arie Becker RN Service: ? Author Type: Registered Nurse Type: ED Notes Filed: 02/04/2020 8:27 PM Note Text: Patient provided with TV remote. [facility] ED NOTE HNO ID: [id number] Author: Arie Becker RN Service: ? Author Type: Registered Nurse Type: ED Notes Filed: 02/04/2020 8:18 PM Note Text: Assumed care of patient from BROOKLYNN Carranza. Patient resting comfortably on cart at this time. [facility] ED NOTE HNO ID: [id number] Author: Karen Resendiz RN Service: ? Author Type: Registered Nurse Type: ED Notes Filed: 02/04/2020 7:51 PM Note Text: Patient brought to ED via EMS with a possible reaction to a beer he drank about 6:30pm. Patient states he became flushed after drinking the beer. He also believes he had increased bp. No hives or itching. Patient did take his bp medications today. [facility] ED NOTE HNO ID: [id number] Author: Ervin Yadav LPN Service: ? Author Type: LICENSED NURSE Type: ED Notes Filed: 02/04/2020 7:39 PM Note Text: Bed: ED-12 Expected date: 02/04/20 Expected time: 7:32 PM Means of arrival: Comments: C-CAN [facility] ED PROV NOTEon 02-04-2020 ED PROV NOTE HNO ID: [id number] Author: Cathy Graham CNP Service: ? Author Type: Nurse Practitioner Type: ED Provider Notes Filed: 02/06/2020 12:58 PM Note Text: -------- Attestation signed by Andrews Kelly Jr., MD at 02/10/2020 7:02 PM I did not personally performed a face to face assessment of the patient but have reviewed the PA/FIRE SPRINKLER INSPECTOR note and was available for consultation throughout ED course. Signature: Andrews Kelly Jr, MD Date: 02/10/2020 Time: 7:02 PM -------- ED Provider Note Patient Name: Hosea Alvarez SERVICE DATE: 02/04/20 History Patient presents with: Allergic Reaction Hypertension History provided by: Patient History limited by: n/a. rigger used: No Allergic Reaction Presenting symptoms: no difficulty breathing, no difficulty swallowing, no itching, no rash, no swelling and no wheezing Severity: Mild Duration: 2 hours Prior allergic episodes: No prior episodes Context comment: Patient states beer that he recently drank which is not his normal brand Relieved by: Nothing Worsened by: Nothing Ineffective treatments: None tried PAST MEDICAL HISTORY Diagnosis Date - Hemorrhoids - Hypertension - Hypoglycemia History reviewed. No pertinent surgical history. No family history on file. Social History Tobacco Use - Smoking status: Former Smoker Types: Cigarettes - Smokeless tobacco: Never Used Substance and Sexual Activity - Alcohol use: Yes Alcohol/week: 7.0 standard drinks Types: 7 Cans of beer per week Drinks per session: 1 or 2 Binge frequency: Less than monthly Comment: daily - Drug use: No - Sexual activity: Not on file ALLERGIES Allergen Reactions - Amoxicillin GI Upset - Ciprofloxacin Other: See Comments Review of Systems Constitutional: Negative. HENT: Negative. Negative for trouble swallowing. Eyes: Negative. Respiratory: Negative. Negative for wheezing. Cardiovascular: Negative. Gastrointestinal: Negative. Genitourinary: Negative. Musculoskeletal: Negative. Skin: Negative. Negative for itching and rash. Psychiatric/Behavioral: Negative. Physical Exam BP 138/82 Pulse 75 Temp (Src) 98.3 (Oral) Resp 16 Ht 5' 6 (1.68m) Wt 200 lb (90.7kg) SpO2 99% BMI 32.30 kg/(m2). O2 Therapy: Room Air Physical Exam Vitals signs and nursing note reviewed. Constitutional: Appearance: He is well-developed. HENT: Head: Normocephalic and atraumatic. Comments: Face red/flushed Right Ear: External ear normal. Left Ear: External ear normal. Nose: Nose normal. Eyes: Conjunctiva/sclera: Conjunctivae normal. Pupils: Pupils are equal, round, and reactive to light. Neck: Musculoskeletal: Normal range of motion and neck supple. Cardiovascular: Rate and Rhythm: Normal rate and regular rhythm. Heart sounds: Normal heart sounds. Pulmonary: Effort: Pulmonary effort is normal. Breath sounds: Normal breath sounds. Abdominal: General: Bowel sounds are normal. Palpations: Abdomen is soft. Musculoskeletal: Normal range of motion. Skin: General: Skin is warm and dry. Neurological: Mental Status: He is alert and oriented to person, place, and time. Psychiatric: Behavior: Behavior is cooperative. Diagnostic Testing ED Labs Ordered and Reviewed - No data to display Procedures ED Course / Clinical Impression Clinical Impressions as of Feb 05 1251 Allergic reaction, initial encounter MDM / Disposition / Plan MDM 1941 RSR rate 75, No ST elevation or ST depression. PA interval 172, QRS 98, QTC 404 This is a 49 year old male who presents with allergic reaction to a new beer he recently drank. He was noted to have some redness and flushed appearence to face. No swallowing difficulties, BBS-CTA, no distress noted. SP02 99% RA. Patient treated while in department with affect. He will discharged to home. He was advised to f/u with pcp in 1-2 days. Patient verbalized understanding. Condition on discharge:stable Cathy Graham CNP 02/06/20 1258 Andrews Kelly Jr., MD 02/10/20 1902 Normal [facility] APTTon 01-17-2020 aPTT Coag (Bld) [Time] 25.7 s [place], [place] Comment on above: PTT Therapeutic Range: 61.7-88.4 Therapeutic range corresponds to plasma heparin levels of 0.3-0.7 U/mL. CBC Auto Differentialon 12-23 Basophils (Bld) [#/Vol] 0.00 10*3/uL [place], [place] Basophils/100 WBC (Bld) 0 % 0 - 2 % [place] Differential Type YES [place], [place] Eosinophils (Bld) [#/Vol] 0.10 10*3/uL [place] Eosinophils/100 WBC (Bld) 2 % 0 - 5 % [place] Erythrocyte distribution width (RBC) [Ratio] 13.6 % 12.1 - 15.2 % [place] Hematocrit (Bld) [Volume fraction] 40.0 % Low 41 - 53 % [place] Hemoglobin (Bld) [Mass/Vol] 13.6 g/dL 13.5 - 17.5 g/dL [place] Interpretation and review of laboratory results Abnormal [place] Lymphocytes (Bld) [#/Vol] 1.40 10*3/uL [place] Lymphocytes/100 WBC (Bld) 30 % 13 - 44 % [place] MCH (RBC) [Entitic mass] 28.6 pg 26 - 34 pg [place] MCHC (RBC) [Mass/Vol] 34.0 g/dL 31 - 37 g/dL M [place], [place] MCV (RBC) [Entitic vol] 84.2 fL 80 - 100 fL [place] Monocytes (Bld) [#/Vol] 0.30 10*3/uL [place] Monocytes/100 WBC (Bld) 7 % 5 - 9 % [place] Platelet mean volume (Bld) [Entitic vol] NOT REPORTED 6 - 12 fL [place], [place] Platelets (Bld) [#/Vol] 176 10*3/uL [place] Platelets (Bld) [#/Vol] NOT REPORTED [place] RBC (Bld) [#/Vol] 4.75 10*6/uL 4.5 - 5.9 m/uL [place] RBC morphology finding Nom (Bld) NOT REPORTED [place] Segmented neutrophils/100 WBC (Bld) 61 % 39 - 75 % [place] Segs Absolute 2.80 [place] WBC (Bld) [#/Vol] 4.6 10*3/uL [place] WBC (Bld) [#/Vol] NOT REPORTED per 100 WBC [facility] [place] WBC Morphology NOT REPORTED [facility] [place] CTA CHEST W CONTRASTon 01-16 PROCEDURE: CTA CHEST W CONTRAST REASON FOR STUDY/Clinical History: Concern for dissection. COMPARISON STUDY: None available at time of dictation. CT ANGIO CHEST WITH CONTRAST: TECHNIQUE: Volumetric data acquisition of chest was obtained following intravenous administration of100 mL Isovue-370 intravenous contrast without any reported adverse effects. Axial images were reconstructed; sagittal and coronal images were reformatted. MIP (maximum intensity projection) images were performed. Images were reviewed PACS. Dose reduction techniques were achieved by using automated exposure control and/or adjustment of mA and/or kV according to patient size and/or use of iterative reconstruction technique. FINDINGS: Significant motion artifact is noted, particularly on the sagittal reconstructed images and at the level of the sternum. Pulmonary Arteries: The main pulmonary artery is enlarged. Although bolus timing is suboptimal for evaluation of the segmental and subsegmental pulmonary arterial tree, no definite filling defect is identified centrally involving the main right or left pulmonary arteries. There is significant robust opacification of the aorta and pulmonary venous system with near equal to or greater intensity of the pulmonary arteries which obscures evaluation. Subtle peripheral filling defects cannot be entirely excluded. Lungs: There is no peripheral pulmonary infarction, consolidation, pleural effusion, or right heart strain. There is no pneumothorax or pneumomediastinum. Very minimal bibasilar atelectatic changes are suggested. There is motion artifact noted on images 84 through 104 of series 2. Very minimal central bronchial wall thickening is noted. Aorta and Vasculature: The proximal aorta at the level of the main pulmonary artery on image 53 of series 2 measures up to 4 cm. A slightly more prominent caliber inferior to this may be partially artifactual and on the sagittal view measures up to 4.2 cm. Motion is particularly noted at this level on the sagittal imaging. Lymph Nodes: No pathologic adenopathy is seen. Mediastinum: Heart size is mildly enlarged. There is no pericardial effusion. The esophagus is diffusely thickened on images 18 through image 39 of series 2 and inferiorly on image 68 through 93 of series 2. There is no significant surrounding fluid edema or adenopathy however correlation for infectious or inflammatory/reflux esophagitis is recommended. Musculoskeletal: No aggressive focal bony lesions, acute fractures or dislocation within the limitations of significant motion particularly at the level of the sternum on images 63 through 67 of series 2.. Chest wall: Unremarkable Partially visualized upper abdomen demonstrates mild wall thickening of the gallbladder versus underdistention. Low-attenuation renal cyst suggested on the left and on the right. Heterogeneous attenuation of the spleen consistent with phase of [facility]. [facility] [place] No evidence of acute or chronic pulmonary embolism within the limitations of bolus timing as described. There is enlargement of the main pulmonary artery and a prominent caliber to the proximal aorta measuring up to approximately 4 cm as described. The descending thoracic aorta demonstrates a normal caliber. Clinical correlation is recommended. Mild cardiomegaly is suggested. Esophageal wall thickening is noted, and clinical correlation for infectious or inflammatory/reflux esophagitis is recommended.. [employer] [facility], [place], M[employer] Incoming Radiant Results From [employer] - 01/17/2020 3:50 AM EDT PROCEDURE: CTA CHEST W CONTRAST REASON FOR STUDY/Clinical History: Concern for dissection. COMPARISON STUDY: None available at time of dictation. CT ANGIO CHEST WITH CONTRAST: TECHNIQUE: Volumetric data acquisition of chest was obtained following intravenous administration of100 mL Isovue-370 intravenous contrast without any reported adverse effects. Axial images were reconstructed; sagittal and coronal images were reformatted. MIP (maximum intensity projection) images were performed. Images were reviewed PACS. Dose reduction techniques were achieved by using automated exposure control and/or adjustment of mA and/or kV according to patient size and/or use of iterative reconstruction technique. FINDINGS: Significant motion artifact is noted, particularly on the sagittal reconstructed images and at the level of the sternum. Pulmonary Arteries: The main pulmonary artery is enlarged. Although bolus timing is suboptimal for evaluation of the segmental and subsegmental pulmonary arterial tree, no definite filling defect is identified centrally involving the main right or left pulmonary arteries. There is significant robust opacification of the aorta and pulmonary venous system with near equal to or greater intensity of the pulmonary arteries which obscures evaluation. Subtle peripheral filling defects cannot be entirely excluded. Lungs: There is no peripheral pulmonary infarction, consolidation, pleural effusion, or right heart strain. There is no pneumothorax or pneumomediastinum. Very minimal bibasilar atelectatic changes are suggested. There is motion artifact noted on images 84 through 104 of series 2. Very minimal central bronchial wall thickening is noted. Aorta and Vasculature: The proximal aorta at the level of the main pulmonary artery on image 53 of series 2 measures up to 4 cm. A slightly more prominent caliber inferior to this may be partially artifactual and on the sagittal view measures up to 4.2 cm. Motion is particularly noted at this level on the sagittal imaging. Lymph Nodes: No pathologic adenopathy is seen. Mediastinum: Heart size is mildly enlarged. There is no pericardial effusion. The esophagus is diffusely thickened on images 18 through image 39 of series 2 and inferiorly on image 68 through 93 of series 2. There is no significant surrounding fluid edema or adenopathy however correlation for infectious or inflammatory/reflux esophagitis is recommended. Musculoskeletal: No aggressive focal bony lesions, acute fractures or dislocation within the limitations of significant motion particularly at the level of the sternum on images 63 through 67 of series 2.. Chest wall: Unremarkable Partially visualized upper abdomen demonstrates mild wall thickening of the gallbladder versus underdistention. Low-attenuation renal cyst suggested on the left and on the right. Heterogeneous attenuation of the spleen consistent with phase of injection. IMPRESSION: No evidence of acute or chronic pulmonary embolism within the limitations of bolus timing as described. There is enlargement of the main pulmonary artery and a prominent caliber to the proximal aorta measuring up to approximately 4 cm as described. The descending thoracic aorta demonstrates a normal caliber. Clinical correlation is recommended. Mild cardiomegaly is suggested. Esophageal wall thickening is noted, and clinical correlation for infectious or inflammatory/reflux esophagitis is recommended.. [place] Comprehensive Metabolic Pane bart 01-17-2020 Albumin [Mass/Vol] 4.5 g/dL 3.5 - 5.2 g/dL [place] Albumin/Globulin [Mass ratio] NOT REPORTED [place] ALP [Catalytic activity/Vol] 67 U/L 40 - 129 U/L [place] ALT [Catalytic activity/Vol] 28 U/L 5 - 41 U/L [place] Anion gap [Moles/Vol] 18 mmol/L High 9 - 17 mmol/L [place] AST [Catalytic activity/Vol] 19 U/L <40 [place] Bilirubin Ql (U) 0.22 mg/dL Low 0.3 - 1.2 mg/dL [place] Bun/Cre Ratio NOT REPORTED [place] Calcium [Mass/Vol] 9.8 mg/dL 8.6 - 10. 4 mg/dL [place] Chloride [Moles/Vol] 102 mmol/L 98 - 10 7 mmol/L [place] CO2 [Moles/Vol] 21 mmol/L 20 - 31 mmol/L [place] Creatinine [Mass/Vol] 1.23 mg/dL High 0.7 - 1.2 mg/dL [place] GFR >60 >60 mL/min [place] GFR Non- >60 >60 mL/min [place] GFR/1.73 sq M predicted among non-blacks MDRD (S/P/Bld) [Vol rate/Area] [place] Comment on above: Average GFR for 40-4 9 years old: 99 mL/min/1.73sq m Chronic Kidney Disease: <60 mL/min/1.73sq m Kidney failure: <15 mL/min/1.73sq m eGFR calculated using average adult body mass. Additional eGFR calculator available at: http://[email or web address]/multiple_crcl_2012.htm GFR/1.73 sq M predicted among non-blacks MDRD (S/P/Bld) [Vol rate/Area] NOT REPORTED [place] Glucose [Mass/Vol] 108 mg/dL High 70 - 99 mg/dL [place] Interpretation and review of laboratory results Abnormal [place] Potassium [Moles/Vol] 4.2 mmol/L 3.7 - 5.3 mmol/L [place] Protein [Mass/Vol] 7.7 g/dL 6.4 - 8.3 g/dL [place] Sodium [Moles/Vol] 141 mmol/L 135 - 144 mmol/L [place] Urea nitrogen [Mass/Vol] 20 mg/dL 6 - 20 mg/dL [place] Otheron 01-17-2020 Immature granulocytes (Bld) [#/Vol] NOT REPORTED [place] Protime-INRon 01-17-2020 INR Coag (PPP) [Relative time] 0.9 {INR} [place] Comment on above: * THERAPY INDICATIONS * REFERENCE RANGES Pts not on anti-coagulants 1.0 - 1.5 INR Low risk pts on anti-coagulants 2.0 - 3.0 INR High risk pts on anti-coagulants 2.5 - 3.5 INR Prevention of atrial thrombo-embolism 3.0 - 4.5 INR PT Coag (PPP) [Time] 9.1 s [place] Troponinon 01-17-2020 Troponin I.cardiac [Mass/Vol] [place] Comment on above: Reference Range: <0.03 Within reference range. 0.03-0.09 Possible myocardial damage. Repeat at appropriate intervals to rule out chronic elevation. >= 0.10 Indicative of myocardial damage. Patients with high levels of Biotin oral intake (i.e >5mg/day) may have falsely decreased Troponin T levels. Samples collected within 8 hours of biotin intake may require additional information for diagnosis. Troponin T.cardiac [Mass/Vol] ug/L <0.03 ng/mL [place] Comment on above: Troponin T results c annot be compared to Troponin-I results. Troponin, High Sensitivity NOT REPORTED 0 - 22 ng/L [place] XR CHEST PORTABLEon 01-17-20 20 Mild bronchial thickening as described with subtle adjacent atelectatic change. No consolidation, effusion, or pneumothorax. No other acute localizing pulmonary pathology. [place], [place], pn Incoming Radiant Results From [employer] - 01/17/2020 2:28 AM EDT PROCEDURE: XR CHEST PORTABLE REASON FOR STUDY/CLINICAL HISTORY: Reason for exam:->Chest pain. COMPARISON STUDY: 01/14/2020. TECHNIQUE: Single view(s) of the chest presented for interpretation. FINDINGS: There is minimal bibasilar atelectasis and mild bronchial wall thickening at the lung bases, however these findings appear slightly improved particularly at the right base compared to the prior. Stable mildly prominent cardiomediastinal silhouette. No focal consolidation, edema, or large pleural effusion. No pneumothorax. No acute appearing focal significant bony abnormality. IMPRESSION: Mild bronchial thickening as described with subtle adjacent atelectatic change. No consolidation, effusion, or pneumothorax. No other acute localizing pulmonary pathology. [place] PROCEDURE: XR CHEST PORTABLE REASON FOR STUDY/CLINICAL HISTORY: Reason for exam:->Chest pain. COMPARISON STUDY: 01/14/2020. TECHNIQUE: Single view(s) of the chest presented for interpretation. FINDINGS: There is minimal bibasilar atelectasis and mild bronchial wall thickening at the lung bases, however these findings appear slightly improved particularly at the right base compared to the prior. Stable mildly prominent cardiomediastinal silhouette. No focal consolidation, edema, or large pleural effusion. No pneumothorax. No acute appearing focal significant bony abnormality. [place] CBC Auto Differentialon 12-23 Basophils (Bld) [#/Vol] 0.00 10*3/uL [place] Basophils/100 WBC (Bld) 0 % 0 - 2 % [place] Differential Type YES [place] Eosinophils (Bld) [#/Vol] 0.00 10*3/uL [place] Eosinophils/100 WBC (Bld) 1 % 0 - 5 % [place] Erythrocyte distribution width (RBC) [Ratio] 13.8 % 12.1 - 15.2 % [place] Hematocrit (Bld) [Volume fraction] 41.0 % 41 - 53 % [place] Hemoglobin (Bld) [Mass/Vol] 13.9 g/dL 13.5 - 17.5 g/dL [place] Lymphocytes (Bld) [#/Vol] 1.00 10*3/uL [place] Lymphocytes/100 WBC (Bld) 26 % 13 - 44 % [place] MCH (RBC) [Entitic mass] 28.5 pg 26 - 34 pg [place] MCHC (RBC) [Mass/Vol] 34.0 g/dL 31 - 37 g/dL [place] MCV (RBC) [Entitic vol] 83.9 fL 80 - 100 fL [place] Monocytes (Bld) [#/Vol] 0.40 10*3/uL [place] Monocytes/100 WBC (Bld) 9 % 5 - 9 % [place] Platelet mean volume (Bld) [Entitic vol] NOT REPORTED 6 - 12 fL [place], [place] Platelets (Bld) [#/Vol] 176 10*3/uL [place] Platelets (Bld) [#/Vol] NOT REPORTED [place] RBC (Bld) [#/Vol] 4.89 10*6/uL 4.5 - 5.9 m/uL [place] RBC morphology finding Nom (Bld) NOT REPORTED [place] Segmented neutrophils/100 WBC (Bld) 64 % 39 - 75 % [place] Segs Absolute 2.50 [place] WBC (Bld) [#/Vol] 4.0 10*3/uL [place] WBC (Bld) [#/Vol] NOT REPORTED per 100 WBC [place] WBC Morphology NOT REPORTED [place] Comprehensive Metabolic Pane bart 01-14-2020 Albumin [Mass/Vol] 4.8 g/dL 3.5 - 5.2 g/dL [place] Albumin/Globulin [Mass ratio] NOT REPORTED [place] ALP [Catalytic activity/Vol] 72 U/L 40 - 129 U/L [place] ALT [Catalytic activity/Vol] 34 U/L 5 - 41 U/L [place] Anion gap [Moles/Vol] 11 mmol/L 9 - 17 mmol/L [place] AST [Catalytic activity/Vol] 29 U/L <40 [place] Bilirubin Ql (U) 0.37 mg/dL 0.3 - 1.2 mg/dL [place] Bun/Cre Ratio NOT REPORTED [place] Calcium [Mass/Vol] 9.9 mg/dL 8.6 - 10. 4 mg/dL [place] Chloride [Moles/Vol] 98 mmol/L 98 - 10 7 mmol/L [place] CO2 [Moles/Vol] 27 mmol/L 20 - 31 mmol/L [place] Creatinine [Mass/Vol] 1.01 mg/dL 0.7 - 1.2 mg/dL [place] GFR >60 >60 mL/min [place] GFR Non- >60 >60 mL/min [place] GFR/1.73 sq M predicted among non-blacks MDRD (S/P/Bld) [Vol rate/Area] [place] Comment on above: Average GFR for 40-4 9 years old: 99 mL/min/1.73sq m Chronic Kidney Disease: <60 mL/min/1.73sq m Kidney failure: <15 mL/min/1.73sq m eGFR calculated using average adult body mass. Additional eGFR calculator available at: http://www.Quu/multiple_crcl_2012.htm GFR/1.73 sq M predicted among non-blacks MDRD (S/P/Bld) [Vol rate/Area] NOT REPORTED [place] Glucose [Mass/Vol] 111 mg/dL High 70 - 99 mg/dL [place] Interpretation and review of laboratory results Abnormal [place] Potassium [Moles/Vol] 3.9 mmol/L 3.7 - 5.3 mmol/L [place] Protein [Mass/Vol] 8.1 g/dL 6.4 - 8.3 g/dL [place] Sodium [Moles/Vol] 136 mmol/L 135 - 144 mmol/L [place] Urea nitrogen [Mass/Vol] 15 mg/dL 6 - 20 mg/dL [place] D-Dimer, Quantitativeon 12-23 D-Dimer, Quant 0.30 [place] Comment on above: Elevated levels of D dimer can be seen in any state of coagulation activation including DVT, PE, arterial thrombosis, DIC, inflamatory disease, trauma, malignancy, sepsis, infection, hematoma, liver disease, post surgical state, , atherosclerosis, old age. When combined with a low clinical probability, a D dimer value of <0.50 mg/L is considered negative for DVT and PE (negative predictive value of 98%). Otheron 01-14-2020 Immature granulocytes (Bld) [#/Vol] NOT REPORTED [place] Troponinon 01-14-2020 Troponin I.cardiac [Mass/Vol] [place] Comment on above: Reference Range: <0.03 Within reference range. 0.03-0.09 Possible myocardial damage. Repeat at appropriate intervals to rule out chronic elevation. >= 0.10 Indicative of myocardial damage. Patients with high levels of Biotin oral intake (i.e >5mg/day) may have falsely decreased Troponin T levels. Samples collected within 8 hours of biotin intake may require additional information for diagnosis. Troponin T.cardiac [Mass/Vol] ug/L <0.03 ng/mL [place] Comment on above: Troponin T results c annot be compared to Troponin-I results. Troponin, High Sensitivity NOT REPORTED 0 - 22 ng/L [place] Urinalysison 01-14-2020 Bilirubin Urine Negative NEGATIVE [place] Color, UA YELLOW YELLOW [place] Glucose, Ur Negative NEGATIVE [place] Ketones Ql (U) Negative NEGATIVE [place] Leukocyte esterase Test strip Ql (U) Negative NEGATIVE [place] Nitrite, Urine Negative NEGATIVE [place] pH, UA 6.0 [place] Protein (U) [Mass/Vol] Negative NEGATIVE [place] Specific [place], UA 1.015 [place], [place] Turbidity UA CLEAR CLEAR [place], [place] Urinalysis Comments [place] Urine Hgb Negative NEGATIVE [place] Urobilinogen, Urine Normal Normal [place] XR CHEST PORTABLEon 01-14-20 20 [place], pn Incoming Radiant Results From [employer] - 01/14/2020 5:30 PM EDT EXAM: XR CHEST PORTABLE REASON FOR EXAM: Generalized weakness. COMPARISON: None. FINDINGS: Shallow breath. Heart size upper normal. Lungs are clear. IMPRESSION: Allowing for a shallow breath, negative portable chest. [place] Allowing for a shall ow breath, negative portable chest. [place] EXAM: XR CHEST RITO BLE REASON FOR EXAM: Generalized weakness. COMPARISON: None. FINDINGS: Shallow breath. Heart size upper normal. Lungs are clear. [place] ANION GAPon 12-15-2019 Anion gap [Moles/Vol] 19.0 mmol/L High 8.0-16.0 [facility] Comment on above: Result Comment: ANIO N GAP = Sodium -(Chloride + CO2) Performed By: #### C BCWD, MG, CMP, ANION, EGFR1, OSMOL #### [address] [address] Anion Gapon 12-15-2019 Anion gap [Moles/Vol] 19.0 mmol/L High 8 - 16 meq/L [place] Comment on above: ANION GAP = Sodium - (Chloride + CO2) Performed at [facility] [address] [place] [address] CALCULATED OSMOLALITYon 11-22 Osmolality [Osmolality] 277.9 mOsmol/kg Normal 275.0-300. [facility] Comment on above: Performed By: #### C BCWD, MG, CMP, ANION, EGFR1, OSMOL #### [address] [address] CBC WITH DIFFERENTIALon 11-22 ABS IMMATURE GRANS (IG) 0.01 thou/mm3 Normal 0.00-0.07 [facility] Comment on above: Performed By: #### C BCWD, MG, CMP, ANION, EGFR1, OSMOL #### [address] [address] ABS NEUTROPHILS 2.9 thou/mm3 Normal 1.8-7.7 [facility] Comment on above: Performed By: #### C BCWD, MG, CMP, ANION, EGFR1, OSMOL #### [address] [address] Basophils (Bld) [#/Vol] 0.0 thou/mm3 Normal 0.0-0.1 [facility] Comment on above: Performed By: #### C BCWD, MG, CMP, ANION, EGFR1, OSMOL #### [address] [address] Basophils/100 WBC (Bld) 0.4 % Normal [facility] Comment on above: Performed By: #### C BCWD, MG, CMP, ANION, EGFR1, OSMOL #### [place] [address] Eosinophils (Bld) [#/Vol] 0.1 thou/mm3 Normal 0.0-0.4 [facility] Comment on above: Performed By: #### C BCWD, MG, CMP, ANION, EGFR1, OSMOL #### [place] [address] Eosinophils/100 WBC (Bld) 1.1 % Normal [facility] Comment on above: Performed By: #### C BCWD, MG, CMP, ANION, EGFR1, OSMOL #### [place] [address] Erythrocyte distribution width (RBC) [Ratio] 13.2 % Normal 11.5-14.5 [facility] Comment on above: Performed By: #### C BCWD, MG, CMP, ANION, EGFR1, OSMOL #### [place] [address] Hematocrit (Bld) [Volume fraction] 45.0 % Normal 42.0-52.0 [facility] Comment on above: Performed By: #### C BCWD, MG, CMP, ANION, EGFR1, OSMOL #### [place] [address] Hemoglobin (Bld) [Mass/Vol] 14.6 gm/dl Normal 14.0-18.0 [facility] Comment on above: Performed By: #### C BCWD, MG, CMP, ANION, EGFR1, OSMOL #### [place] [address] IMMATURE GRANS (IG) 0.2 % Normal [facility] Comment on above: Performed By: #### C BCWD, MG, CMP, ANION, EGFR1, OSMOL #### [place] [address] Lymphocytes (Bld) [#/Vol] 1.3 thou/mm3 Normal 1.0-4.8 [facility] Comment on above: Performed By: #### C BCWD, MG, CMP, ANION, EGFR1, OSMOL #### [address] [address] Lymphocytes/100 WBC (Bld) 28.5 % Normal [facility] Comment on above: Performed By: #### C BCWD, MG, CMP, ANION, EGFR1, OSMOL #### [address] [address] MCH (RBC) [Entitic mass] 28.3 pg Normal 26.0-33.0 [facility] Comment on above: Performed By: #### C BCWD, MG, CMP, ANION, EGFR1, OSMOL #### [address] [address] MCHC (RBC) [Mass/Vol] 32.4 gm/dl Normal 32.2-35.5 [facility] Comment on above: Performed By: #### C BCWD, MG, CMP, ANION, EGFR1, OSMOL #### [address] [address] MCV (RBC) [Entitic vol] 87.4 fL Normal 80.0-94.0 [facility] Comment on above: Performed By: #### C BCWD, MG, CMP, ANION, EGFR1, OSMOL #### [address] [address] Monocytes (Bld) [#/Vol] 0.4 thou/mm3 Normal 0.4-1.3 [facility] Comment on above: Performed By: #### C BCWD, MG, CMP, ANION, EGFR1, OSMOL #### [address] [address] Monocytes/100 WBC (Bld) 8.8 % Normal [facility] Comment on above: Performed By: #### C BCWD, MG, CMP, ANION, EGFR1, OSMOL #### [address] [address] Neutrophils/100 WBC (Bld) 61.0 % Normal [facility] Comment on above: Performed By: #### C BCWD, MG, CMP, ANION, EGFR1, OSMOL #### [address] [address] Nucleated RBC/100 WBC (Bld) [Ratio] 0 /100 wbc Normal [facility] Comment on above: Performed By: #### C BCWD, MG, CMP, ANION, EGFR1, OSMOL #### [address] [address] Platelet mean volume (Bld) [Entitic vol] 11.2 fL Normal 9.4-12.4 [facility] Comment on above: Performed By: #### C BCWD, MG, CMP, ANION, EGFR1, OSMOL #### [address] [address] Platelets (Bld) [#/Vol] 171 thou/mm3 Normal 130-400 [facility] Comment on above: Performed By: #### C BCWD, MG, CMP, ANION, EGFR1, OSMOL #### [address] [address] RBC (Bld) [#/Vol] 5.15 mill/mm3 Normal 4.70-6.[address] [facility] Comment on above: Performed By: #### C BCWD, MG, CMP, ANION, EGFR1, OSMOL #### [address] [address] RDW-SD 41.4 fL Normal 35.0-45.0 [facility] Comment on above: Performed By: #### C BCWD, MG, CMP, ANION, EGFR1, OSMOL #### [address] [address] WBC (Bld) [#/Vol] 4.7 thou/mm3 Low 4.8-10.8 [facility] Comment on above: Performed By: #### C BCWD, MG, CMP, ANION, EGFR1, OSMOL #### [address] [address] CBC auto differentialon 11-22 Basophils (Bld) [#/Vol] 0.0 10*3/uL [facility], [place] Basophils/100 WBC (Bld) 0.4 % [place] Eosinophils (Bld) [#/Vol] 0.1 10*3/uL [place] Eosinophils/100 WBC (Bld) 1.1 % [place] Erythrocyte distribution width (RBC) [Ratio] 13.2 % 11.5 - 14.5 % [place] Hematocrit (Bld) [Volume fraction] 45.0 % 42 - 52 % [place] Hemoglobin (Bld) [Mass/Vol] 14.6 g/dL [place] Immature Grans (Abs) 0.01 [place] Immature granulocytes (Bld) [#/Vol] 0.2 % [place] Interpretation and review of laboratory results Abnormal [place] Lymphocytes (Bld) [#/Vol] 1.3 10*3/uL [place] Lymphocytes/100 WBC (Bld) 28.5 % [place] MCH (RBC) [Entitic mass] 28.3 pg 26 - 33 pg [place] MCHC (RBC) [Mass/Vol] 32.4 g/dL [place] MCV (RBC) [Entitic vol] 87.4 fL 80 - 94 fL [place] Monocytes (Bld) [#/Vol] 0.4 10*3/uL [place] Monocytes/100 WBC (Bld) 8.8 % [place] Nucleated RBC/100 WBC (Bld) [Ratio] 0 % /100 wbc [place] Comment on above: Performed at [facility] [address] [place] [address] Platelet mean volume (Bld) [Entitic vol] 11.2 fL 9.4 - 12.4 fL [place] Platelets (Bld) [#/Vol] 171 10*3/uL [place] RBC (Bld) [#/Vol] 5.15 10*6/uL [place] RDW-SD 41.4 fL 35 - 45 fL [place] Segmented neutrophils/100 WBC (Bld) 61 % [place] Segs Absolute 2.9 [place] WBC (Bld) [#/Vol] 4.7 10*3/uL Low [facility] [place], [place] COMP. METABOLIC PANELon - Albumin [Mass/Vol] 4.8 g/dL Normal 3.5-5.1 [facility] Comment on above: Performed By: #### C BCWD, MG, CMP, ANION, EGFR1, OSMOL #### [facility] [address] [place] [address] ALP [Catalytic activity/Vol] 66 U/L Normal 38-126 [facility] Comment on above: Performed By: #### C BCWD, MG, CMP, ANION, EGFR1, OSMOL #### [address] [address] ALT [Catalytic activity/Vol] 21 U/L Normal 11-66 [facility] Comment on above: Performed By: #### C BCWD, MG, CMP, ANION, EGFR1, OSMOL #### [address] [address] AST [Catalytic activity/Vol] 23 U/L Normal 5-40 [facility] Comment on above: Performed By: #### C BCWD, MG, CMP, ANION, EGFR1, OSMOL #### [facility] [address] [place] [address] Bilirubin Ql (U) 0.4 mg/dL Normal 0.3-1.2 [facility] Comment on above: Performed By: #### C BCWD, MG, CMP, ANION, EGFR1, OSMOL #### [address] [address] Calcium [Mass/Vol] 9.4 mg/dL Normal 8.5-10.5 [facility] Comment on above: Performed By: #### C BCWD, MG, CMP, ANION, EGFR1, OSMOL #### [facility] [address] [place] [address] Chloride [Moles/Vol] 101 mmol/L Normal 98-[address] [facility] Comment on above: Performed By: #### C BCWD, MG, CMP, ANION, EGFR1, OSMOL #### [address] [address] CO2 [Moles/Vol] 20 mmol/L Low 23-33 [facility] Comment on above: Performed By: #### C BCWD, MG, CMP, ANION, EGFR1, OSMOL #### [address] [address] Creatinine [Mass/Vol] 0.9 mg/dL Normal 0.4-1.2 [facility] Comment on above: Performed By: #### C BCWD, MG, CMP, ANION, EGFR1, OSMOL #### [address] [address] Glucose [Mass/Vol] 83 mg/dL Normal 70-108 [facility] Comment on above: Performed By: #### C BCWD, MG, CMP, ANION, EGFR1, OSMOL #### [address] [address] Potassium [Moles/Vol] 4.1 mmol/L Normal 3.5-5.2 [facility] Comment on above: Performed By: #### C BCWD, MG, CMP, ANION, EGFR1, OSMOL #### [address] [address] Protein [Mass/Vol] 8.1 g/dL High 6.1-8.0 [facility] Comment on above: Performed By: #### C BCWD, MG, CMP, ANION, EGFR1, OSMOL #### [address] [address] Sodium [Moles/Vol] 140 mmol/L Normal 135-145 [facility] Comment on above: Performed By: #### C BCWD, MG, CMP, ANION, EGFR1, OSMOL #### [address] [address] Urea nitrogen [Mass/Vol] 11 mg/dL Normal 7-22 [facility] Comment on above: Performed By: #### C BCWD, MG, CMP, ANION, EGFR1, OSMOL #### [address] [address] Comprehensive Metabolic Pane [facility] 12-15-2019 Albumin [Mass/Vol] 4.8 g/dL 3.5 - 5.1 g/dL [place] ALP [Catalytic activity/Vol] 66 U/L 38 - 126 U/L [place] ALT [Catalytic activity/Vol] 21 U/L 11 - 66 U/L [place] Comment on above: Performed at [facility] [address] [place] [address] AST [Catalytic activity/Vol] 23 U/L 5 - 40 U/L [place] Bilirubin Ql (U) 0.4 mg/dL 0.3 - 1.2 mg/dL [place] Calcium [Mass/Vol] 9.4 mg/dL 8.5 - 10. 5 mg/dL [place] Chloride [Moles/Vol] 101 mmol/L 98 - 11 1 meq/L [place] CO2 [Moles/Vol] 20 mmol/L Low 23 - 33 meq/L [place] Creatinine [Mass/Vol] 0.9 mg/dL 0.4 - 1.2 mg/dL [place] Glucose [Mass/Vol] 83 mg/dL 70 - 108 mg/dL [place] Potassium [Moles/Vol] 4.1 mmol/L 3.5 - 5.2 meq/L [place] Protein [Mass/Vol] 8.1 g/dL High 6.1 - 8 g/dL [place] Sodium [Moles/Vol] 140 mmol/L 135 - 145 meq/L [place] Urea nitrogen [Mass/Vol] 11 mg/dL 7 - 22 mg/dL [place] EKG 12-LEADon 12-15-2019 EKG 12-LEAD 82 82 168 96 352 411 38 -23 12 Normal sinus rhythm Normal ECG When compared with ECG of 13-DEC-2019 05:08, No significant change was found Confirmed by ROBINSON PHILLIPS ([id number]) on 12/15/2019 9:13:39 AM [email or web address]=&Time=[id number] %[id number]&TestType=ECG&Site= [email or web address]&OutputType=PDF&Ext=PDF Normal [facility] GFR, ESTIMATEDon 12-15-2019 GFR/1.73 sq M.predicted MDRD (S/P/Bld) [Vol rate/Area] 90 ml/min/1.73m2 Normal [facility] Comment on above: Result Comment: Stag e Description GFR, ml/min/1.73 m2 - At increased risk > or = 60 (with chronic kidney disease risk factors) 1 Normal or increased GFR > or = 90 2 Mildly or decreased GFR 60 - 89 3 Moderately decreased GFR 30 - 59 4 Severely decreased GFR 15 - 29 5 Kidney failure <15 (or dialysis) Estimated GFR calculated using abbreviated MDRD formula as recommended by [employer]. Calculation based upon serum creatinine and adjusted for age, gender & race. Geeta. Internal Med., Vol. 139 (2) pg 137-147. Performed By: #### C BCWD, MG, CMP, ANION, EGFR1, OSMOL #### [facility] [address] [place] [id number] Glomerular Filtration Rate, Estimatedon 12-15-2019 Est, Glom Filt Rate 90 ml/min/1 .73m 2 [place] Comment on above: Stage Description GF R, ml/min/1.73 m2 - At increased risk > or = 60 (with chronic kidney disease risk factors) 1 Normal or increased GFR > or = 90 2 Mildly or decreased GFR 60 - 89 3 Moderately decreased GFR 30 - 59 4 Severely decreased GFR 15 - 29 5 Kidney failure <15 (or dialysis) Estimated GFR calculated using abbreviated MDRD formula as recommended by [employer]. Calculation based upon serum creatinine and adjusted for age, gender & race. Geeta. Internal Med., Vol. 139 (2) pg 137-147. Performed at [facility] [address] [place] [id number] MAGNESIUMon 12-15-2019 Magnesium [Mass/Vol] 2.1 mg/dL Normal 1.6-2.[address] [facility] Comment on above: Performed By: #### C BCWD, MG, CMP, ANION, EGFR1, OSMOL #### [facility] [address] [place] [id number] Magnesiumon 12-15-2019 Magnesium [Mass/Vol] 2.1 mg/dL 1.6 - 2 .4 mg/dL [place], [place] Comment on above: Performed at [facility] [address] [place] [address] Osmolalityon 12-15-2019 Osmolality Calc 277.9 [facility] [place] Comment on above: Performed at [facility] [address] [place] [address] Otheron 12-15-2019 Interpretation and review of laboratory results Abnormal [place], [place] EKG 12-LEADon 12-13-2019 EKG 12-LEAD 82 82 160 96 [phone] Normal sinus rhythm Normal ECG No previous ECGs available Confirmed by THU ORTEGA MD ([id number]) on 12/13/2019 11:42:34 PM [email or web address]&Date=&Time=05%3a08%3a18 %3a00&TestType=ECG&Site= 3&OutputType=PDF&Ext=PDF Normal [facility] XR CHEST PORTABLEon 12-13-19 20 XR CHEST PORTABLE PROCEDURE: XR CHEST PORTABLE CLINICAL INFORMATION: chest pain. COMPARISON: No prior study. TECHNIQUE: AP Portable chest xray FINDINGS: Lines/tubes/devices: none Lungs/pleura: No pneumonia, pulmonary edema, or obvious mass. No pleural effusion. No pneumothorax. Heart: There is mild cardiomegaly. Mediastinum/lizzette: No obvious mass or adenopathy. Skeleton: No significant bone or joint abnormality. IMPRESSION: No acute cardiopulmonary disease. Mild cardiomegaly. This report has been created using voice recognition software. It may contain minor errors which are inherent in voice recognition technology. Final report electronically signed by Dr. Pedro Luis Warren on 12/13/2019 6:13 AM Interpreted by: Pedro Luis Warren MD Signed by: Pedro Luis Warren MD 12/13/19 Final result Normal [facility] No acute cardiopulmo nary disease. Mild cardiomegaly. This report has been created using voice recognition software. It may contain minor errors which are inherent in voice recognition technology. Final report electronically signed by Dr. Pedro Luis Warren on 12/13/2019 6:13 AM [place] PROCEDURE: XR CHEST PORTABLE CLINICAL INFORMATION: chest pain. COMPARISON: No prior study. TECHNIQUE: AP Portable chest xray FINDINGS: Lines/tubes/devices: none Lungs/pleura: No pneumonia, pulmonary edema, or obvious mass. No pleural effusion. No pneumothorax. Heart: There is mild cardiomegaly. Mediastinum/lizzette: No obvious mass or adenopathy. Skeleton: No significant bone or joint abnormality. [place], [place], [facility] Incoming Radiant Results From [facility] - 12/13/2019 6:15 AM EDT PROCEDURE: XR CHEST PORTABLE CLINICAL INFORMATION: chest pain. COMPARISON: No prior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 abdominal wall soft tissues appear normal. BONE AND SOFT TISSUE: No suspicious osseous lesions are identified. IMPRESSION: 1. Negative for aneurysm, dissection, or occlusion in the abdominal aorta or its). 2. No inflammatory phlegmon in the abdomen or pelvis. 3. Moderate fecal loading of the colon. Dictated by: Electronically Signed by: Jax Lund Electronically Signed on: 09/25/2018 9:51 PM Normal [facility] [place]/CTA CHEST W/AND/OR W/Oon 09-25-2018 CT/CTA CHEST W/AND/OR W/O Patient Name: HOSEA ALVAREZ STUDY: CT/CTA CHEST W/AND/OR W/O; 09/25/2018 9:26 pm INDICATION: Thoracic Dissection Protocol;. COMPARISON: None. ACCESSION NUMBER(S): [id number] ORDERING CLINICIAN: MONALISA LUNA TECHNIQUE: Using multi-detector CT technology, axial, sequential imaging with prospective gating was performed of the chest following the intravenous administration of contrast material. A low-osmolar contrast agent was used (100 mL Omnipaque 350). FINDINGS: Potential study limitations: None. THORACIC AORTA: Ascending aortic prominence, with a cross-sectional dimension of the ascending aorta 4.8 cm. The descending aorta at the same level measures 2.7 cm. No aortic dissection. The great vessels are unremarkable. Appropriate opacification of the pulmonary artery. No central pulmonary embolus. The heart and pericardium are unremarkable. No chamber enlargement. No pericardial effusion. Pulmonary parenchymal analysis documents no soft tissue nodularity, airspace disease, pleural effusion, or pneumothorax. The airway is unremarkable. Thoracic osseous analysis: No acute abnormality. IMPRESSION: 1. Ascending aortic aneurysm measures 4.8 cm in cross-sectional dimension. No associated dissection. 2. No other acute cardiopulmonary pathology is identified. Dictated by: Electronically Signed by: Jax Lund Electronically Signed on: 09/25/2018 9:46 PM Normal [facility] [place] Provider Note - EDon 019 Provider Note - ED TIME SEEN: Time [id number] 19:05 CHIEF COMPLAINT/REASON FOR VISIT: Chief Complaintnot taken metoprolol in 1 week. HTN and back pain today around 1600, hx of AAA(1) REASON FOR VISITHTN, back pain, hx of AAA(1) Historianpatient HISTORY OF PRESENT ILLNESS - ADDITIONAL: ComplaintPatient presents complaining of high blood pressure, pain and history of ascending aortic aneurysm. Patient states he is from [place] and received Medicaid there, thus when he is in [place] he goes to a free medical clinic and is unable to continue his blood pressure medications. He is currently taking metoprolol but has not had a dose in 5 days. He complains of having blood pressure spikes that will resolve if he rests. Today he was having 1 and was seen at the free clinic, and encouraged to be evaluated in the emergency department due to his history of a thoracic aortic aneurysm. Patient states he is feeling back pressure this evening that is new. He last had his aneurysm ultrasounded 3 months ago in [place]. He denies shortness of breath, chest pain, dizziness, headache, abdominal pain, or any other complaints at this time. ALLERGIES: Allergies: Cipro: Drug, states cannot have because of AAA, Other(See Desc), Active OUTPATIENT MEDICATION, REVIEW/ADD MEDICATIONS: * Outpatient Medication Status not yet specified SUBSTANCE USE: Smoking Statuscurrent some day smoker(1) Alcohol Use Statuscurrent alcohol (1) Alcohol Typebeer(1) Alcohol Amount1-2 drinks (1) Alcohol Frequencydaily (1) Street Drug/Inhalant/Medication Use Statusstreet drug/inhalants/medicatio n never used (1) Exposure to Second Hand Smokefrequent (1) HISTORY ATTESTATION: AttestationI have reviewed and confirmed nurse's/medic's notes for patient's medications, allergies, medical history, and surgical history REVIEW OF SYSTEMS: Statement: Review of Systems as stated in History of Present Illness otherwise at least 10 systems reviewed and found Negative. VITAL SIGNS: 2. Vital Signs: Date/TimeHeart Rate (beats/min) beats/minBP Systolic (mm Hg) SystolicBP Diastolic (mm Hg) Diastolic (mm Hg)BP Mean (mm Hg) Mean (mm Hg)Respiration (breaths/min) Respiration (breaths/min) 25-Sep-2018 19:[id number] SpO2 (%) SpO2 (%)O2 Therapy Delivery Method 97room air PHYSICAL EXAMINATION: General Appearance Commentswell nourished, well developed, awake and alert, in no distress Skin Commentswarm and dry, no rash Neck and Thyroid Commentssupple, non-tender, with full range of motion Eyes Commentspupils equal, round and reactive to light, extraocular movement intact, no conjunctival injection or scleral icterus Ears, Nose, Mouth and Throat Commentsmoist mucous membranes Respiratory Commentslungs clear to auscultation bilaterally, no increased work of breathing Cardiovascular Commentsheart regular in rate and rhythm, no murmur appreciated Pulses Commentspulses 2+ in all distal extremities Edema Or Varicosities Commentsno peripheral edema Gastrointestinal Commentsabdomen soft, non-tender, non-distended, normoactive bowel sounds, no guarding or rebound, no pulsatile mass Musculoskeletal Commentsnormal range of motion, no deformities Neurological Commentssensation and motor function intact and symmetric, no focal neuro deficits Psychiatric Commentscooperative, appropriate mood and affect LAB AND MICRO RESULTS (24 hours): General Hematology: 25-Sep-2018 19:53 Auto Dif ResultValueAbnRangeText Neutrophil %_69.7[41.0 - 73.8 %] Lymphocyte %_21.4[17.0 - 44.0 %] Monocyte %_7.4[5.3 - 12.5 %] Eosinophil %_1.3[0.7 - 6.5 %] Basophil %_0.2[0.0 - 2.4 %] Neutrophil Count_3.7[1.8 - 7.5 x10E9/L] Lymphocyte Count_1.1[1.1 - 3.5 x10E9/L] Monocyte Count_0.4[0.3 - 1.0 x10E9/L] Eosinophil Count_0.1[0.0 - 0.5 x10E9/L] Basophil Count_0.0[0.0 - 0.2 x10E9/L] 25-Sep-2018 19:53 CBC With Auto Diff ResultValueAbnRangeText WBC5.4[4.3 - 10.5 x10E9/L] RBC4.59[4.18 - 5.87 x10E12/L] Ikyzqfgrap61.1Image has been removed.[13.4 - 17.5 g/dL] Aczihqdqqu92.2[37.5 - 49.2 %] MCV_85.4[80.0 - 100.0 fL] MCH_28.5[26.5 - 33.0 pg] MCHC_33.4[32.6 - 36.0 g/dL] Platelets Nlpxq896[144 - 400 x10E9/L] Mean Plt Vol_10.6Image has been removed.[7.2 - 10.3 fL] RDW_12.9[11.4 - 16.0 %] General Coagulation: 25-Sep-2018 19:55 APTT ResultValueAbnRangeText APTT31[28 - 38 seconds] 25-Sep-2018 19:55 Prothrombin Time ResultValueAbnRangeText Prothrombin Time, Plasma_11.2[9.7 - 12.7 seconds] INR_1.0[0.9 - 1.1]Recommended ranges for Protime INR: 2.0-3.0 for most medical and surgical thromboembolic states. 2.5-3.5 for artificial heart valves and recurrent embolism. NOTE: Utilizing the INR is appropriate only for those patients who are taking oral anticoagulant therapy, are stable for at least two weeks and have appropriately responded to the anticoagulant drug. General Chemistry: 25-Sep-2018 19:36 Troponin POCT ResultValueAbnRangeText Troponin POCT<0.02[ ng/mL]<0.04 : Negative 0.04 - 0.50 : Possible Cardiac Damage >0.5 : Consistent With Cardiac Damage 25-Sep-2018 19:53 Comprehensive Metabolic Panel ResultValueAbnRangeText Sodium, Jqpsm494[136 - 144 mmol/L] Potassium, Level3.7[3.4 - 5.1 mmol/L] Hkqjepyv530[98 - 107 mmol/L] CO224[22 - 32 mmol/L] Anion Gap, Serum_10.0[5.0 - 19.0 mmol/L] Glucose, Level93[70 - 100 mg/dL] Blood Urea Nitrogen, Serum20[8 - 26 mg/dL] Creatinine0.96[0.60 - 1.30 mg/dL] Calcium, Level8.7[8.1 - 10.1 mg/dL] Total Protein7.0[6.5 - 8.1 g/dL] Albumin, Level3.8[3.5 - 5.0 g/dL] Bilirubin Total0.3[0.3 - 1.2 mg/dL] Aspartate Oyfinfmbqtah22[15 - 41 IU/L] Alanine Anifghfopcjd20[14 - 63 IU/L] Alkaline Cgboskxohpo23[32 - 91 IU/L] BUN/Creatinine Ratio_20.8 Osmolality-Calc_274[ mOsm/kg] 25-Sep-2018 19:53 Troponin Reflex ResultValueAbnRangeText Troponin<0.03[ ng/mL]<0.04 Normal 0.04 - 0.50 Possible cardiac damage >0.50 Consistent with cardiac damage DIAGNOSTIC TESTS AND OTHER RESULTS (24 hours): CTs: 25-Sep-2018 21:46 CTA Chest with Contrast ResultText CTA Chest with ContrastMRN: [id number] Patient Name: HOSEA ALVAREZ STUDY: CT/CTA CHEST W/AND/OR W/O; 09/25/2018 9:26 pm INDICATION: Thoracic Dissection Protocol;. COMPARISON: None. ACCESSION NUMBER(S): [id number] ORDERING CLINICIAN: MONALISA LUNA TECHNIQUE: Using multi-detector CT technology, axial, sequential imaging with prospective gating was performed of the chest following the intravenous administration of contrast material. A low-osmolar contrast agent was used (100 mL Omnipaque 350). FINDINGS: Potential study limitations: None. THORACIC AORTA: Ascending aortic prominence, with a cross-sectional dimension of the ascending aorta 4.8 cm. The descending aorta at the same level measures 2.7 cm. No aortic dissection. The great vessels are unremarkable. Appropriate opacification of the pulmonary artery. No central pulmonary embolus. The heart and pericardium are unremarkable. No chamber enlargement. No pericardial effusion. Pulmonary parenchymal analysis documents no soft tissue nodularity, airspace disease, pleural effusion, or pneumothorax. The airway is unremarkable. Thoracic osseous analysis: No acute abnormality. IMPRESSION: 1. Ascending aortic aneurysm measures 4.8 cm in cross-sectional dimension. No associated dissection. 2. No other acute cardiopulmonary pathology is identified. Dictated by: Electronically Signed by: Jax Lund Electronically Signed on: 09/25/2018 9:46 PM 25-Sep-2018 21:51 CTA Abdomen and Pelvis with Contrast ResultText CTA Abdomen and Pelvis with ContrastMRN: [id number] Patient Name: HOSEA ALVAREZ STUDY: CT/CTA ABD/PEL W+OR W/O; 09/25/2018 9:26 pm INDICATION: AAA. COMPARISON: None. ACCESSION NUMBER(S): [id number] ORDERING CLINICIAN: MONALISA LUNA TECHNIQUE: CT of the abdomen was performed. Contiguous axial images were obtained at 3 mm slice thickness through the abdomen. Coronal and sagittal reconstructions at 3 mm slice thickness were performed. 100 ml of contrast material Omnipaque 350 were administered intravenously without immediate complication. FINDINGS: LOWER CHEST: Please see CTA chest dictation. ABDOMEN: LIVER: Hepatic parenchymal attenuation is appropriate. No space-occupying mass in the liver. BILE DUCTS: The bile ducts are not dilated. GALLBLADDER: Gallbladder: No calcified stones. No wall thickening. PANCREAS: The pancreas appears unremarkable. SPLEEN: Within normal limits. ADRENAL GLANDS: Bilateral adrenal glands appear normal. KIDNEYS AND URETERS: Renal cysts bilaterally. Normal renal morphology and enhancement. No intrarenal calculus. The ureters are of appropriate caliber. The urinary bladder is unremarkable. BOWEL: Gastric morphology normal. Small bowel caliber normal. Moderate fecal loading of the colon. The appendix is normal. VESSELS: Excellent abdominal aortic bolus of contrast. The celiac axis, superior mesenteric artery, KESHAWN, renal arteries, aortic bifurcation, common iliac arteries, and the internal/external iliac arteries are normal in appearance. Appropriate constitutional the common femoral artery and profunda femoral artery. IVC unremarkable. PERITONEUM/RETROPERITONE UM/LYMPH NODES: No ascites or free air, no fluid collection. The retroperitoneum appears unremarkable. No abdominopelvic lymphadenopathy is present. ABDOMINAL WALL: The abdominal wall soft tissues appear normal. BONE AND SOFT TISSUE: No suspicious osseous lesions are identified. IMPRESSION: 1. Negative for aneurysm, dissection, or occlusion in the abdominal aorta or its). 2. No inflammatory phlegmon in the abdomen or pelvis. 3. Moderate fecal loading of the colon. Dictated by: Electronically Signed by: Jax Lund Electronically Signed on: 09/25/2018 9:51 PM General Radiology: 25-Sep-2018 20:28 XR Chest 2 Views (Routine PA + Lateral) ResultText XR Chest 2 Views (Routine PA + Lateral) Patient Name: HOSEA ALVAREZ STUDY: RAD/CHEST 2V FRONTAL/LAT;; 09/25/2018 8:02 pm INDICATION: CP. COMPARISON: None. ACCESSION NUMBER(S): [id number] ORDERING CLINICIAN: MONALISA LUNA FINDINGS: AP and lateral views of the chest are obtained. There is no focal consolidation, pleural effusion or pneumothorax. The cardiomediastinal silhouette is within normal limits. The trachea is midline. No acute osseous abnormality. IMPRESSION: No acute intrathoracic findings. Dictated by: Electronically Signed by: Eugenia Avalos Electronically Signed on: 09/25/2018 8:28 PM EKG RESULTS/INTERPRETATION: EKG Date/Nuux24-Pjv-3260 18:33 Rate80 CommentsNormal sinus rhythm, no QRS prolongation, no QTC prolongation, no AV block, no ectopy, no ischemic changes PROGRESS NOTE: ED Course: Patient's physical exam shows no pulse discrepancies in the right or the left extremities and no pulsatile mass noted. Given patient's complaining of back pressure with a reported history of the thoracic aortic aneurysm and poorly controlled hypertension at this time, patient was given metoprolol for pressure control and a CTA of the chest/abd/pel was performed. EKG showed no ischemic changes. Troponin negative. Patient's lab work was unremarkable. He was given a oral dose of metoprolol for his hypertension. CTA of the aorta of the chest abdomen and pelvis showed no dissection, aortic leakage or rupture. It did show a 4.8 cm thoracic aortic aneurysm, and patient states his last check your murmurs was 4.5 cm. Patient was very well appearing on reexamination. He was given a dose of his own metoprolol prior to discharge, as he states that he will not be able to refill his medications until he gets back home on Saturday. Patient discharged home well-appearing and in no distress. He is strongly encouraged to take his medications as prescribed and not skip any antihypertensive doses as he is doing right now. He will follow-up with his doctor who monitors his aortic aneurysm as scheduled. DIAGNOSES/PROBLEM LIST: Problem DvjvMyawEgdzubUVA-4XCJ-8 0 Noncompliance with medication regimenED UnWkwlnqH48.81Z91.14 Uncontrolled hypertensionED EnMelblc577.9I10 History of aortic aneurysmED YqZrxpwqT55.59Z86.79 DISCHARGE DISPOSITION: Disposition: discharged Discharge Type: home CONDITION ON DISCHARGE: Condition on Dispositionstable MEDICATION RECONCILIATION AND DISCHARGE MEDS: * Outpatient Medication Status not yet specified Electronic Signatures: Monalisa Luna) (Signed 25-Sep-2018 22:26) Entered: Time Seen/ED Notes, Chief Complaint/Reason for Visit via Triage Note, Patient History, History Attestation, ROS, Physical Exam, Lab Results Review, Diagnostic Imaging Results Review, EKG Results/Interpretation, Progress Note, ED Disposition (REQUIRED), Attestation Authored: Time Seen/ED Notes, Chief Complaint/Reason for Visit via Triage Note, Patient History, History Attestation, ROS, Vital Signs, Physical Exam, Lab Results Review, Diagnostic Imaging Results Review, EKG Results/Interpretation, Progress Note, ED Disposition (REQUIRED), Attestation Last Updated: 25-Sep-2018 22:26 by Monalisa Luna) References: 1. Data Referenced From Triage Note, Emergency 09/25/2018 6:24 PM Normal [facility] [place] Pton 09-25-2018 INR Coag (PPP) [Relative time] 1.0 {INR} Normal 0.9-1.1 [facility] [place] Comment on above: Result Comment: Recommended ranges for Protime INR: 2.0-3.0 for most medical and surgical thromboembolic states. 2.5-3.5 for artificial heart valves and recurrent embolism. NOTE: Utilizing the INR is appropriate only for those patients who are taking oral anticoagulant therapy, are stable for at least two weeks and have appropriately responded to the anticoagulant drug. PT Coag (PPP) [Time] 11.2 s Normal 9.7-12.7 [facility] [place] RAD/CHEST 2V FRONTAL/LATon 0 09-25-2018 RAD/CHEST 2V FRONTAL/LAT Patient Name: HOSEA ALVAREZ STUDY: RAD/CHEST 2V FRONTAL/LAT;; 09/25/2018 8:02 pm INDICATION: CP. COMPARISON: None. ACCESSION NUMBER(S): [id number] ORDERING CLINICIAN: MONALISA LUNA FINDINGS: AP and lateral views of the chest are obtained. There is no focal consolidation, pleural effusion or pneumothorax. The cardiomediastinal silhouette is within normal limits. The trachea is midline. No acute osseous abnormality. IMPRESSION: No acute intrathoracic findings. Dictated by: Electronically Signed by: Eugenia Avalos Electronically Signed on: 09/25/2018 8:28 PM [facility] Trop POCTon 09-25-2018 Troponin I.cardiac [Mass/Vol] ng/mL Normal [facility] [place] Comment on above: Order Comment: Tropo jimmie POCT added per lab protocol Result Comment: <0.04 : Negative 0.04 - 0.50 : Possible Cardiac Damage >0.5 : Consistent With Cardiac Damage Troponin Rfxon 09-25-2018 Troponin I.cardiac [Mass/Vol] ng/mL Normal [facility] [place] Comment on above: Order Comment: Trop Rfx Replaces Trop order Result Comment: <0.04 Normal 0.04 - 0.50 Possible cardiac damage >0.50 Consistent with cardiac damage zCBCDon 09-25-2018 Erythrocyte distribution width (RBC) [Ratio] 12.9 % Normal 11.4-16.0 [facility] [place] Hematocrit (Bld) [Volume fraction] 39.2 % Normal 37.5-49.2 [facility] [place] Hemoglobin (Bld) [Mass/Vol] 13.1 g/dL Low 13.4-17.5 [facility] [place] MCH (RBC) [Entitic mass] 28.5 pg Normal 26.5-33.0 [facility] [place] MCHC (RBC) [Mass/Vol] 33.4 g/dL Normal 32.6-36.0 [facility] MCV (RBC) [Entitic vol] 85.4 fL Normal 80.0-100.0 [facility] [place] Mean Plt Vol 10.6 fL High 7.2-10.3 [facility] [place] Platelets (Bld) [#/Vol] 156 10*3/uL Normal 144-400 [facility] [place] RBC (Bld) [#/Vol] 4.59 x10E12/L Normal 4.18-5.87 [facility] [place] WBC (Bld) [#/Vol] 5.4 10*3/uL Normal 4.3-10.5 [facility] BMPon 02-25-2018 Anion gap 7 mmol/L Normal 5-16 [facility] Comment on above: Order Comment: Campu s: M Performed By: #### L 500.66898, L500.00334 ####[facility] [id number] [place], [place] [address]Gh# [phone] BUN/Creatinine Ratio 12 mg/mg Low 15- [facility] Comment on above: Order Comment: Campu s: M Performed By: #### L 500.12919, L500.73757 ####[facility] [id number] [place], [place] [address]Ke# [phone] Calcium 8.9 mg/dL Normal 8.5-10.1 [facility] Comment on above: Order Comment: Campu s: M Performed By: #### L 500.17791, L500.49284 ####[facility] [id number] [place], [place] [address]Ak# [phone] Chloride 102 mmol/L Normal 98-107 [facility] Comment on above: Order Comment: Campu s: M Performed By: #### L 500.02690, L500.79276 ####[facility] [id number] [place], [place] [address]As# [phone] CO2 28 mmol/L Normal 21-32 [facility] Comment on above: Order Comment: Campu s: M Performed By: #### L 500.32331, L500.87527 ####[facility] [id number] [place], [place] [address]Td# [phone] Creatinine 1.080 mg/dL Normal 0.670-1.170 [facility] Comment on above: Order Comment: Campu s: M Result Comment: Yanni ents receiving either N-Acetylcysteine (NAC) orMetamizole prior to venipuncture, may have falsely depressedresults. Performed By: #### L 500.85011, L500.22678 ####[facility] S[address]ES[address]BAR[address] [place], [place] [address]De# [phone] Glucose mass conc 87 mg/dL Normal 70-100 [facility] Comment on above: Order Comment: Campu s: M Result Comment: 70-1 00- Normal Fasting; 100-125 Impaired Fasting; greaterthan 126 on more than one result- Diabetes. ADA guidelines.Results may be falsely elevated after the administration ofSulfapyridine.Results may be falsely depressed after the administration ofSulfasalazine. Performed By: #### L 500.54422, L500.66462 ####[facility] NJEVOATBAY[address]378 [place], [place] [address]Cp# [phone] Potassium molar conc 3.8 mmol/L Normal 3.5-5.1 [facility] [place] Comment on above: Order Comment: Campu s: M Performed By: #### L 500.85140, L500.61089 ####[facility] [address] [place] [address]Pp# [phone] Sodium 137 mmol/L Normal 136-145 [facility] Comment on above: Order Comment: Campu s: M Performed By: #### L 500.60756, L500.97411 ####[address] [address]Vh# [phone] Urea nitrogen 13 mg/dL Normal 7-26 [facility] Comment on above: Order Comment: Campu s: M Performed By: #### L 500.70552, L500.62234 ####[address] [address]Qw# [phone] CBC W/DIFFon 02-25-2018 BASO ABS 0.00 K/CU MM Normal 0-0.2 [facility] [place] Comment on above: Order Comment: Campu s: M Performed By: #### L 200.36176 ####[place] [address]Ph# [phone] Basophils/100 WBC Auto (Bld) 0.4 % Normal 0-2 [facility] Comment on above: Order Comment: Campu s: M Performed By: #### L 200.13656 ####[facility] [address] [place] [address]Uz# [phone] EOS ABS 0.10 K/CU MM Normal 0-0.5 [facility] [place] Comment on above: Order Comment: Campu s: M Performed By: #### L 200.90195 ####[facility] DRF[address]KS[address] [place] [address]Uk# [phone] Eosinophils/100 leukocytes 1.9 % Normal 0-5 [facility] Comment on above: Order Comment: Campu s: M Performed By: #### L 200.64747 ####[facility] CPUFCUSXDS9949 [place], [place] [address]Ra# [phone] Erythrocyte distribution width Auto Ratio (RBC) 13.0 % Normal 11-14.5 [facility] [place] Comment on above: Order Comment: Campu s: M Performed By: #### L 200.49925 ####[facility] VMCEYCLFMX[address] [place] [address]Jn# [phone] Erythrocytes (RBC) 5.33 M/CU MM Normal 4.50-6.00 [facility] Comment on above: Order Comment: Campu s: M Performed By: #### L 200.59891 ####[address] [address]Fe# [phone] Hematocrit (HCT) 44.0 % Normal 41.0-53.0 [facility] Comment on above: Order Comment: Campu s: M Performed By: #### L 200.70682 ####[facility] TSR[address]VAL[address] [place] [address]Bm# [phone] Hemoglobin mass conc (Bld) 14.6 g/dL Normal 13.5-17.5 [facility] Comment on above: Order Comment: Campu s: M Performed By: #### L 200.55991 ####[facility] LPECDWWXDK[address] [place] [address]Dt# [phone] IMMATR GRAN ABS 0.00 K/CU MM Normal Less than 2 [facility] Comment on above: Order Comment: Campu s: M Performed By: #### L 200.30981 ####[facility] H[address]ARS[address] [place] [address]Rd# [phone] IMMATURE GRAN % 0.0 % Normal Less than 2 [facility] Comment on above: Order Comment: Campu s: M Performed By: #### L 200.32612 ####[facility] I[address]QKCCH[address] [place] [address]Ee# [phone] Lymphocytes 1.30 K/CU MM Normal 0.9-4.4 [facility] [place] Comment on above: Order Comment: Campu s: M Performed By: #### L 200.17016 ####[facility] AGSWZGBCSB1926 [place], [place] [address]Kq# [phone] Lymphocytes/100 leukocytes 26.7 % Normal 20-40 [facility] Comment on above: Order Comment: Campu s: M Performed By: #### L 200.29376 ####[place] [address]Ph# [phone] MCHC mass conc (RBC) 33.2 g/dL Normal 32.0-36.0 [facility] Comment on above: Order Comment: Campu s: M Performed By: #### L 200.46998 ####[address] [address]Om# [phone] MCV 82.6 fL Normal 80.0-99.0 [facility] Comment on above: Order Comment: Campu s: M Performed By: #### L 200.40013 ####[address] [address]Vq# [phone] MONO ABS 0.40 K/CU MM Normal 0.1-1.1 [facility] Comment on above: Order Comment: Campu s: M Performed By: #### L 200.52465 ####[facility] MDKCKZKGWA[address] [place], [place] [address]Ph# [phone] Monocytes/100 leukocytes 7.9 % Normal 2-10 [facility] Comment on above: Order Comment: Campu s: M Performed By: #### L 200.32147 ####[facility] NZFDRGUPJA[address] [place] [address]Bh# [phone] NEUTROPHIL ABS 3.10 K/CU MM Normal 2.0-8.3 [facility] [place] Comment on above: Order Comment: Campu s: M Performed By: #### L 200.10201 ####[facility] XERQQ[address]HEC[address] [place], [place] [address]Ph# [phone] Neutrophils/100 WBC Auto (Bld) 63.1 % Normal 45-75 [facility] Comment on above: Order Comment: Campu s: M Performed By: #### L 200.15474 ####[facility] PALPHMSUZR4747 [place], [place] [address]Jm# [phone] NRBC 0.0 % Normal Less than 1 [facility] Comment on above: Order Comment: Campu s: M Performed By: #### L 200.43486 ####[facility] CNMCYXVFIR0376 [place], [place] [address]Zc# [phone] Platelet mean volume (PMV) 11.8 fL Normal 9.4-12.4 [facility] Comment on above: Order Comment: Campu s: M Performed By: #### L 200.70935 ####[facility] UBKCLBJRHJ9815 [place], [place] [address]Sa# [phone] Platelets 157 K/CU MM Normal 150-450 [facility] Comment on above: Order Comment: Campu s: M Performed By: #### L 200.95144 ####[facility] YQXARYUZJJ7942 [place], [place] [address]Ya# [phone] WBC (Leukocytes) 4.8 K/CU MM Normal 4.5-11.0 [facility] Comment on above: Order Comment: Campu s: M Performed By: #### L 200.65074 ####[facility] [address] [place] [address]Mf# [phone] CHEST PA/AP AND LATERALon CHEST PA/AP AND LATERAL CHEST PA/AP & LATERALOrdering Physician: Nabeel Harris, DO02/24/2018 11:36 PMPA AND LATERAL CHEST:Clinical Statement: Chest pressureComparison: NoneFINDINGS: No focal consolidation, pleural effusion, pneumothorax,pulmonary nodules or pulmonary edema. The cardiac silhouette iswithin normal limits. The osseous structures are unremarkable.IMPRESSION: No acute cardiopulmonary disease. ---- Electronic Signature on File ----Signed By: Krystina [email or web address] sebastián: 02/25/2018 7:19 AMSigned: 02/25/2018 7:20 AM Reported By: SAHIL RUIZ M.D. Signed By: SAHIL RUIZ M.D. [facility] ED DOCon 02-25-2018 ED DOC PHYS ICIAN ASSESSMENT ======RECORDS: FlexChartDataEvent Time: 02/24/2018 23:45Status: SignedHillsboro Medical CenterJesu Alvarez [[id number] ]Attending Rlhhwkegm58 / M / 07/20/EvieChart (V2b)Chart created at 02/24/2018 23:37 by Nabeel Rojas closed at 02/25/2018 00:19Entry in Emergency Department at 02/24/2018 22:31,departure at 02/25/2018 00:47Patient Name: Jesu Alvarez Record Number: [id number]: 02/24/2018 23:37 EnteredDepartment at: 02/24/2018 22:31 Patient Seen at:02/24/2018 23:19 Historian: PatientChief Complaint:pt having high BP and chest pressure afterhiking today.Temperature: 99.1 F (37.3 C). Pulse: 82. Respiratory Rate:18. Blood-pressure:154/98. Oxygen Saturation: 97%.History of Present Illness:Patient is complaining of post chest pressure. He had somewhile he was hiking he has 100 pound backpackthat he walks around with doing the area canal. Patient [facility]. He has family here sohe didnt decanted needle dropped off his prescription forhis [place] He had some chest pressure earlier today but itsgone now since hes been resting here. He sayshe has family here and [place] he got[place] pressure and he made his way over here. He [facility] PATIENT NAME: CAMILA ALVAREZ [facility] Dr[facility] [place] MEDICAL REC #: [id number], [place] [address] DEPARTMENT CHART EMERGENCY DEPARTMENT PHYSICIANis on metoprolol and he takes that every day. Patientsmokes occasionally.He has a known history of a ascending aneurysm but hedoesnt know anything about the size is no level atgoes to work that involves the valves he has noinformation. He presents thinking that all hospitals havethis information across the country I tried to explain tohim that is not the case. The patient justwanted to get a ultrasound of his aorta make sure nothingis changed. I again tried to explain to himthat were not given no change if we dont have the originalto note a difference. And we dont haveultrasound that can do that kind of study. He can get a CTscan with contrast angiogram however he is nothaving pain right now and that would justify doing thattest.HPI Elements: Onset: earlier today ago; Timing: Gradual;Location: chest pressure; Quality: Pressure;Severity: maximum Mild, now None; Context: Exertion;Exacerbated by: Exertion; Alleviated by: RestAssociated symptoms: as above.Review of Systems. All other systems reviewed and negative..Past History, Medications, Allergies, Social History andFamily History reviewed in nurses note.Past Medical History:ascending aortic aneurysmMedications: Reviewed RN Note.NoneAllergies: Reviewed RN NoteNo Known AllergiesSocial History: Reviewed RN Note. Tobacco: Smoking,occasional packs per day. Alcohol: Occasional.Recreational Drugs: None.Family History: Reviewed RN Note [facility] PATIENT NAME: CAMILA ALVAREZ Dr. Warren MEDICAL REC #: [id number], [place] [address] DEPARTMENT CHART EMERGENCY DEPARTMENT PHYSICIANPhysical Examination: General: Alert; nontoxic appearing noacute distress HEENT: Normal ENT inspection.Eyes: Lids Normal; . Oropharynx / Throat: NormalPharynx. Neck: NoLymphadenopathy, No Meningismus and Supple Respiratory: NoResp Distress and Normal Breath SoundsCardio-Vascular: No murmur, No rub and RRR Abdomen: NormalBowel Sounds, Non-tender and Soft Back: No CVAtenderness, No Midline Tenderness and Non-tender Extremity:No edema and Normal Equal pulsesNeurological: Alert, Oriented X3 and No Gross WeaknessSkin: No rash, No Petechiae, Warm and DryPsychological: Mood/Affect Normal and Normal Memory/JudgmentCBC W/DIFF, information as of 02/24/2018, 11:09 pm82.6/ 14.6 /4.8 andgt;------andlt; 157/ 44.0 /N:63.1BASO ABS: 0.00 K/Cu Mm; BASOPHIL %: 0.4 %; EOS ABS: 0.10K/Cu Mm; EOSINOPHIL %: 1.9 %; IMMATR GRAN ABS:0.00 K/Cu Mm; IMMATURE GRAN %: 0.0 %; LYMPH %: 26.7 %;LYMPH ABS: 1.30 K/Cu Mm; MCHC: 33.2 Gm/Dl; MONOABS: 0.40 K/Cu Mm; MONOCYTE %: 7.9 %; MPV: 11.8; NEUTROPHILABS: 3.10 K/Cu Mm; NRBC: 0.0 %; RBC: 5.33M/Cu Mm; RDW: 13.0BMP, information as of 02/24/2018, 11:09 pm137 --------+--------+------ --andlt; 87 Anion Gap = 73.8 BUN/CREA: 12; CALCIUM TOTAL: 8.9 Mg/DlTROPONIN I POC, information as of 02/24/2018, 11:21 pmPOC Trop-I: 0.00Cardiogram: Interpreted by me. Rate: 74 bpm. RateNormalRhythm Sinus RhythmAxis NormalIntervalsNormalQRS NormalST/T Normal Rate: early repolarizationInterpreta tion: Normal. Comparison: No old Cardiogramavailable for comparisonImaging Study Obtained: [facility] PATIENT NAME: CAMILA ALVAREZ Kendra Warren [facility] REC #: [id number], [place] [address] DEPARTMENT CHART EMERGENCY DEPARTMENT PHYSICIANCHEST PA/AP LATERALRadiology: Interpreted by me.normal cardiopulmonary shadow.Medical Decision MakingPatients chest x-ray is nonacute I dont see a largeaneurysm is asymptomatic now his electrolytes arenormal and his gap is 7. Patients calcium is normal at 8.9his white count is only 4.8 his hemoglobin is14.6 and his troponin 0.00 of these things are normal. HisEKG demonstrates a early repolarization. He isasymptomatic now he was hydrated with fifth 500 mL ofsaline on his insistence. Patients BUN andcreatinine however dont indicate any significantdehydration nor does his exam.Patient was encouraged to get his records if he is planningon hiking across parts of the country becausehis tests that hes had in the past dont follow himeverywhere he is going in different hospitals. He isgoing to need to keep a disc and his records for hisradiologic and his medical records respectively.Ill discharge him have him follow-up back in [place] gets back.Re-Evaluation:00:13 : Symptoms Improved. Examination Improved.Additional Information: Discussed Results, Diagnosis andFollow-Up with Patient.Clinical Impression:1. transient chest pain resolvedDisposition: Discharged *Home at 25 Feb 2018, 00:19.Condition: StableMSE completed.I was the primary ED attending.. [facility] PATIENT NAME: CAMILA ALVAREZ [facility] Dr[address] [place] MEDICAL REC #: [id number], [place] [address] DEPARTMENT CHART EMERGENCY DEPARTMENT PHYSICIANPatient transported to ED by EMS with medical direction bySCEP physician (not applicable for EMT squads).. at00:19: Discharge ReportEvent Time: 02/25/2018 00:21===DISCHARGE REPORT===: FlexChartDataEvent Time: 02/24/2018 23:45: Discharge ReportEvent Time: 02/25/2018 00:21Status: DraftReasons to Return to the ER:You must return to the ER for any new, worsening orchanging symptoms, or if you feel more ill or sick inany way. This is the most important thing to remember.Follow-up:The care you received in the ER was given on an emergencybasis only, and it is often not possible tocompletely treat or diagnose a problem in a single ERvisit. You must see your follow-up doctor for arecheck within a week unless you receive instructions witha different timeframe for follow-up. Pleasefollow all your discharge instructions.Medications :Unless the ER doctor tells you differently, you should takeall your regular medications and any newmedications prescribed today. Because it is not possiblefor the ER doctor to review all of yourmedication side effects or interactions, you must reviewpossible side effects and interactions with yourpharmacist when you get your prescriptions filled.EKG and Radiology Results:A electrical software engineer or radiologist will review any EKG or [facility] PATIENT NAME: CAMILA ALVAREZ Kendra Warren MEDICAL REC #: [id number], [place] [address] DEPARTMENT CHART EMERGENCY DEPARTMENT PHYSICIANradiology results provided by the ER doctor. We willcontact you if the results in the final EKG or radiologyreports require a change in treatment.Culture Results:Cultures may have been ordered during your ER visit. Wewill contact you if the culture results require achange in treatment.Referrals:Most referrals to specialists come from the on-call listYou should make your regular doctor aware of anyreferrals before you schedule the appointment so that theyare aware and can make suggestionsDIAGNOSIS:tra nsient chest pain resolvedINSTRUCTIONS:I suggest that you keep a copy of your medical records andyour disc for your radiologic films in thefuture before traveling. Return to the emergency departmentif you have chest pain that is constant formore than 10 minutes. Gait your losartanprescription thatsbeen filled and start taking tomorrow/todaycontinue taking your metoprololMEDICATIONSWe have given you these prescriptions that you must filland start taking:NoneCOMMENTS:Yanni ent Satisfaction:Within the first few days after your visit, you willreceive an email and/or phone call regarding yourvisit. We value your feedback, and would appreciate it ifyou would take the time to complete this short [facility] PATIENT NAME: CAMILA ALVAREZ Kendra Warren MEDICAL REC #: [id number], [place] [address] DEPARTMENT CHART EMERGENCY DEPARTMENT PHYSICIANsurvey. If you receive a call, it will be between 6p and 8p.My signature below indicates that I have received andunderstand the oral instructions regarding mymedical problem. I also acknowledge receipt of this writteninstruction sheet including a list of majortests and procedures ordered during my visit. I willarrange for follow-up care as indicated by theseinstructions and referrals.This signed original will be kept in my medical record.Your signature below indicates consent for Case Managementto contact [facility]children[facility]care providers in [place] to meet your ongoing healthcare needs. This willallow forcontinuity of care once you [facility] the[facility]. This exchange of informationwillinclude, but not be limited to, disclosure of yourpatient information and possible release of records. ====DEMOGRAPHICS======== Emergisoft Patient: JESU DE LA ROSAAnnamaria: OB: 1970Age: 47 yrAccount No: [id number]: [id number] Date: :02/24/2018Address[address]Address: [place] [address] =REGISTRATION =========ED Number: [id number]: Marital Status: SFinancial Class: SELF TRIAGE ==Priority: 3 - UrgentComplaint: Chest Pressure [facility] PATIENT NAME: [facility]Z [facility] MEDICAL REC #: [id number], [place] [address] DEPARTMENT CHART EMERGENCY DEPARTMENT PHYSICIANComplaint: HypertensionStated Complaint: pt having high BP and chestpressure after hiking today.Arrival Date: 02/24/2018 22:31Triage Date: 02/24/2018 22:39Mode of Arrival: AmbulanceTransfer From: * HomeWC: NLanguage: EnglishTransport: [place] [facility] BED A 02 In: 02/24/2018 22:41:16 02/24/201822:41:16 MAFAA02 (Removed From) Out: 02/25/2018 00:47:16002/25/2018 00:47:16 MAFA PROVIDERS =====Emergency Medical Service Provider Contact:02/24/2018 22:39:10 EMSEnd:BROOKLYNN TREVINO Provider Contact: 02/24/201822:41:10 MAFAEnd:DO Nabeel Harris Provider Contact: 02/24/201823:19:09 CKEnd: ==TRIAGE HISTORY ===ALLERGIESAllergic To: No Known Allergies 02/24/2018 22:41 MAFACURRENT MEDSName: None 02/24/2018 22:41 MAFA [facility] PATIENT NAME: CAMILA ALVAREZ [facility] Dr[address] Warren MEDICAL REC #: [id number], [place] [address] DEPARTMENT CHART EMERGENCY DEPARTMENT PHYSICIANPAST SURGERY HISTSurgery: hemorrhoids 02/24/2018 22:41 MAFAPAST SOCIAL HISTSocial History: Behavior age appropriate 02/24/201822:41 MAFASocial History: Communicates without ihcskvcnqn82/04/2018 22:41 MAFASocial History: Lives alone 02/24/2018 22:41 MAFASocial History: Recreational Drugs - None 02/24/201822:41 MAFASocial History: Alcohol - Occasional-02/24/2018 22:41 MAFASocial History: Smoker-occ PPD 02/24/2018 22:41MAFASocial History: Have you traveled in the past month?Where [place] 02/24/2018 22:41 MAFA NURSING ASSESSMENT ==ASSESSMENT NOTES =02/24/2018 22:41 Pt came to the ED complaining of chestpressure and hypertension. Pt denies SOB. Pt denies n/v. Ptalert and oriented x4. SKin is warm and dry. Msps intact.Resps easy and unlabored. Lungs cta. Pt has been hiking andcarrying a heavy backpack. 02/25/2018 00:13 MAFA TREATMENT =====02/24/2018 22:40 Hourly Rounding - Rounding 02/25/201800:11 MAFAElimination/Toiletin g NPain 4Position Comfortable Y [facility] PATIENT NAME: CAMILA ALVAREZ Dr. Warren MEDICAL REC #: [id number], [place] [address] DEPARTMENT CHART EMERGENCY DEPARTMENT PHYSICIANSafe Environment YFall Risk Change N002/24/2018 22:40 Patient Interaction - Call lightplaced within reach. 02/25/2018 00:11 MAFA02/24/2018 22:40 Patient Interaction - Introduce selfto Patient. 02/25/2018 00:11 MAFA02/24/2018 22:40 Patient Interaction - Name Band on Pt02/25/2018 00:11 MAFA02/24/2018 23:35 POC testing results and criticalvalues - POC Troponin 0.00 on ED 1 rqlavetput51/04/2018 23:45 HMHA02/25/2018 00:10 Hourly Rounding - Rounding 02/25/201800:11 MAFAElimination/Toiletin g NPain 0Position Comfortable YSafe Environment YAssessment Note call light within reach. family at thebedside.Fall Risk Change N002/25/2018 00:11 Primary DOC Guide - A. 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 Fall RiskAssessment (Age andlt;65) 02/25/2018 00:11 MAFAHistory of Falling in last 3 months? No (0)Confusion or Disorientation? No (0)Intoxicated or Sedated? No (0)Impaired Gait? No (0) [facility] PATIENT NAME: CAMILA ALVAREZ Dr. Warren MEDICAL REC #: [id number], [place] [address] DEPARTMENT CHART EMERGENCY DEPARTMENT PHYSICIANMobility Assist Device Used? No (0)Altered Elimination? No (0)Fall Risk Score 1-2 Points = Low Risk. 3-4 Points =Moderate Risk. 5 or more points = High Risk. 0Fall Score Greater andgt;= 3? No02/25/2018 00:11 Primary DOC Guide - D. PsychosocialAssessment 02/25/2018 00:11 MAFAOver the Last 2 weeks, how often have you had littleinterest or pleasure in doing things (0) Not at AllIs Psychosocial Assessment Score 3 or more? If score is3 or more please consult ED Navigator! NoTotal Psychosocial Assessment Score 0Over the last 2 weeks, how often have you been feelingdown, depressed or hopeless (0) Not at All02/25/2018 00:11 Primary DOC Guide - E. Family ViolenceAssessment 02/25/2018 00:11 MAFAWithin the past year, has anyone ever pushed, shoved,slapped, choked, hit, punched or kicked you: NoWithin the past year, has anyone ever pressured orforced you to have sexual activities when you did not wantto: NoDo you feel safe and well cared for: YesIs there a partner from a previous or currentrelationship that is making you feel unsafe now: NoFamily Violence Clinical Observation All Negative Kylzpl1202/25/2018 00:38 Admit/Discharge - Ambulated withsteady gait home 02/25/2018 00:38 MAFA02/25/2018 00:38 Admit/Discharge - Discharge 02/25/201800:38 MAFA02/25/2018 00:38 Admit/Discharge - Discharge infomationreviewed with pt 02/25/2018 00:38 MAFA02/25/2018 00:38 Admit/Discharge - Dischargeinstruction reviewed 02/25/2018 00:38 MAFA MEDICATIONS ===IV [facility] PATIENT NAME: CAMILA ALVAREZ [facility] Dr[facility] Warren MEDICAL REC #: [id number], [place] [address] DEPARTMENT CHART EMERGENCY DEPARTMENT PHYSICIAN =====IV Fluid: B 02/24/2018 22:41 02/24/2018 22:41MAFALine #: 1 Rate: ml/hr Location: hand rightNdl Gauge: 20 Notes: squad startIV Fluid: E 02/25/2018 00:39 02/25/2018 00:39MAFALine #: 1 Rate: ml/hr Location: hand rightNdl Gauge: 20 Notes: catheter intact, dressingapplied========= I AND O VITALS= VS-RO UTINE Time: 02/24/2018 22:39B/P: 154/98 - Left Upper Arm - Lying - Machine Pulse:82 - Monitor Resp: 18Sa02: 97 Room Air Temp: 99.10 F - Oral02/24/2018 22:41 MAFAVS-Pain Time: 02/24/2018 22:39 Pain Level: 22:41 MAFAVS-GCS Time: 02/24/2018 22:39 Visual: 4 Verbal: 5 Motor:6 GCS Total: 15 02/24/2018 22:41 MAFAVS-HT/WT Time: 02/24/2018 22:39 Ht: 165.1 cm StatedWeight: 90.7 kg Stated 02/24/2018 22:41 MAFAVS-Visual Time: 02/24/2018 22:39 02/24/2018 22:41 MAFAVS-FHT Time: 02/24/2018 22:39 02/24/2018 22:41MAFAVS-Notes Time: 02/24/2018 22:39 map = 120 02/24/201822:41 MAFAVS-ROUTINE Time: 02/25/2018 00:38B/P: 140/87 - Left Upper Arm - Lying - Machine Pulse:83 - Monitor Resp: 16Sa02: 97 Room Air 02/25/2018 00:38 MAFAVS-Pain Time: 02/25/2018 00:38 02/25/2018 00:38MAFAVS-GCS Time: 02/25/2018 00:38 02/25/2018 00:38 MAFAVS-HT/WT Time: 02/25/2018 00:38 02/25/2018 00:38 MAFAVS-Visual Time: 02/25/2018 00:38 02/25/2018 00:38 MAFAVS-FHT Time: 02/25/2018 00:38 02/25/2018 00:38MAFA [facility] PATIENT NAME: CAMILA ALVAREZ Kendra Warren MEDICAL REC #: [id number], [place] [address] DEPARTMENT CHART EMERGENCY DEPARTMENT PHYSICIANVS-Notes Time: 02/25/2018 00:38 map = 108 02/25/201800:38 MAFA ORDERS ==Discharge patient 02/25/2018 00:30N/AOrdered: 02/25/2018 00:20 By . OtherReviewed: 02/25/2018 00:30 By . OtherEXTERN ORDER: GFRP 02/24/2018 23:44NoneOrdered: 02/24/2018 23:44 Completed Time:02/24/2018 23:44 Results Time: 02/24/2018 23:43EXTERN ORDER: POCTROP 02/24/2018 23:39NoneOrdered: 02/24/2018 23:39 Completed Time:02/24/2018 23:39 Results Time: 02/24/2018 23:39IV NS bolus 500 cc over 45 min 02/24/2018 23:42N/AOrdered: 02/24/2018 23:35 By Nabeel HarrisCompleted Time: 02/24/2018 23:42 By Nabeel AvalosXR PA and lateral 02/25/2018 00:12N/AOrdered: 02/24/2018 23:36 By Nabeel HarrisCompleted Time: 02/25/2018 00:12 By Nabeel YadavesIndication: Chest PressureNoted Time: 02/25/2018 00:04Question: How is patient transported? (A = Ambulatory, B =Bed, C = Carry, CR = Crib, P = Portable, S = Stretcher, W =Wheelchair, X = Wide Wheelchair, XT = Trauma X RM17 (EDOnly))Answer: STRETCHERIV hep lock 02/24/2018 23:36N/AOrdered: 02/24/2018 23:33 By ProtocolCompleted Time: 02/24/2018 23:36 By ProtocolPOC troponin 02/24/2018 23:45N/AOrdered: 02/24/2018 22:43 By Protocol [facility] PATIENT NAME: CAMILA ALVAREZ Kendra Warren MEDICAL REC #: [id number], [place] [address] DEPARTMENT CHART EMERGENCY DEPARTMENT PHYSICIANCompleted Time: 02/24/2018 23:35 By ProtocolNoted Time: 02/24/2018 23:18 KPWBMP 02/24/2018 23:44N/AOrdered: 02/24/2018 22:43 By ProtocolCompleted Time: 02/24/2018 23:44 By ProtocolNoted Time: 02/24/2018 23:18 KPWResults Time: 02/24/2018 23:43CBC with diff 02/24/2018 23:25N/AOrdered: 02/24/2018 22:43 By ProtocolCompleted Time: 02/24/2018 23:25 By ProtocolNoted Time: 02/24/2018 23:18 KPWResults Time: 02/24/2018 23:25EKG and most recent EKG 02/24/2018 22:54N/AOrdered: 02/24/2018 22:43 By ProtocolCompleted Time: 02/24/2018 22:53 By ProtocolNoted Time: 02/24/2018 22:49 HMHAO2 by cannula at 2L if SAT andlt;= 91% 02/24/2018 23:36N/AOrdered: 02/24/2018 22:43 By ProtocolNoted Time: 02/24/2018 23:36 MAFABMP 02/24/2018 23:36N/AOrdered: 02/24/2018 23:33 By ProtocolCancelled: 02/24/2018 23:36 MAFACancelled Reason: not neededCBC with diff 02/24/2018 23:36N/AOrdered: 02/24/2018 23:33 By ProtocolCancelled: 02/24/2018 23:35 MAFACancelled Reason: not neededEKG and most recent EKG 02/24/2018 23:36N/AOrdered: 02/24/2018 23:33 By ProtocolCancelled: 02/24/2018 23:36 MAFACancelled Reason: not needed [facility] PATIENT NAME: CAMILA ALVAREZ Dr. Warren MEDICAL REC #: [id number], [place] [address] DEPARTMENT CHART EMERGENCY DEPARTMENT PHYSICIANPOC troponin 02/24/2018 23:36N/AOrdered: 02/24/2018 23:33 By ProtocolCancelled: 02/24/2018 23:36 MAFACancelled Reason: not neededFingerstick glucose 02/24/2018 23:36N/AOrdered: 02/24/2018 23:33 By ProtocolCancelled: 02/24/2018 23:36 MAFACancelled Reason: error =DISCHARGE ======Diagnosis: transient chest pain resolved 02/25/201800:21CANCELLED DIAGNOSESDiagnosis Name: transient chest pain resolvedDiagnosis Name: transient chest pain resolvedDisposition: Time: 02/25/2018 00:20By: Nabeel StevenDischarge Time: 02/25/2018 00:47Type: DischargeCondition: Stable for admission/discharge/reyes sferafter emergency evaluation/treatment Category: *NOTAPPLICABLEConcurred: 02/25/2018 00:30 Referral:02/25/2018 00:21 =PRESCRIPTIONS ======CHARGES =====SIGNATURE Nabeel Steven HUGH ZIEGLER HMGMARADALBERTO CASTROJUANITA VALDERRAMAMARÍA JOYCE BLEVINSENA BARRON [facility] PATIENT NAME: CAMILA ALVAREZ Kendra Warren MEDICAL REC #: [id number], [place] [address] DEPARTMENT CHART EMERGENCY DEPARTMENT PHYSICIAN [facility] PATIENT NAME: CAMILA ALVAREZ Kendra Warren MEDICAL REC #: [id number], [place] [address] DEPARTMENT CHART EMERGENCY DEPARTMENT PHYSICIAN Normal [facility] ED Documentation This is a preliminar y report only, as the practitioner review and authentication has not occurred. [facility] EKGon 02-25-2018 EKG Procedure Date and T chucky: 02/24/18 2249Test Reason : STATBlood Pressure : / mmHGVent. Rate : 074 BPM Atrial Rate : 074 BPMP-R Int : 174 ms QRS Dur : 102 msQT Int : 356 ms P-R-T Axes : 022 -17 002 degreesQTc Int : 395 msNormal sinus rhythmPoor anterior R-wave progressionNormal ECGNo previous ECGs availableConfirmed by MAXINE ROSENBERG A. ([id number]) on 02/25/2018 4:30:44 PMReferred By: Emergency Stk Cnty Confirmed By:Indu ROSENBERG M.D.[facility] _ AlokDDandT: 02/24/18 2249TDandT:[facility] PATIENT NAME: [facility] REC #: [id number], [place] [address] DATE:DISCHARGE DATE: 02/25/18ATTENDING PHY: Nabeel Harris DOELECTROCARDIOGRAM REPORTCLBcc:[facility] PATIENT NAME: [facility] ALVAREZ [facility] MEDICAL REC #: [id number], [place] [address] DATE:DISCHARGE DATE: 02/25/18ATTENDING PHY: Nabeel Harris DOELECTROCARDIOGRAM REPORT Normal [facility] ELECTROCARDIOGRAM REPORT Normal [facility] 02-25-2018 IF AMER Greater than [address] [facility] Comment on above: Order Comment: Candi s: M Performed By: #### L [id number], L500.43060 ####[facility] [id number] [place], [place] [address]Kk# [phone] IF non-AFR AMER Greater than [address] [facility] Comment on above: Order Comment: Candi s: M Performed By: #### L 500.31381, L500.26306 ####[facility] [id number] [place], [place] [address]Bg# [phone] TROPONIN I POCon 02-25-2018 Troponin I.cardiac mass conc 0.00 ng/mL Normal 0.0-0.06 [facility] Comment on above: Result Comment: 0.0 - 0.06 NG/ML - NON-DIAGNOSTIC (REFERENCE RANGE)0.07 - 0.59 NG/ML - INDETERMINATEGreater than or equal to 0.6 NG/ML - INDICATIVE OFMYOCARDIAL DAMAGE Basic Metabolic Panelon Calcium 9.3 mg/dL Normal 8.4-10.2 [facility] Comment on above: Performed By: #### H EMOG, BMP3, CK3 ####[facility] [place] [address] [place] [address] Glucose mass conc 107 mg/dL High 70-100 [facility] Comment on above: Performed By: #### H EMOG, BMP3, CK3 ####[facility] [place] [address] [place] [address] Urea nitrogen 13 mg/dL Normal 7-20 [facility] Comment on above: Performed By: #### H EMOG, BMP3, CK3 ####[facility] [place] [address] [place] [address] Anion gap 9 Normal [facility] Comment on above: Performed By: #### H EMOG, BMP3, CK3 ####[facility] [place] [address] [place] [address] CO2 25 mmol/L Normal 22-30 [facility] Comment on above: Performed By: #### H EMOG, BMP3, CK3 ####[facility] [place] [address] [place] [address] Creatinine 0.93 mg/dL Normal 0.52-1.25 [facility] Comment on above: Performed By: #### H EMOG, BMP3, CK3 ####[facility] [place] [address] [place] [address] eGFR (black) mL/min/{1.73_m2} Normal >60 [facility] Comment on above: Performed By: #### H EMOG, BMP3, CK3 ####[facility] [place] [address] [place] [address] eGFR (non-black) mL/min/{1.73_m2} Normal >60 [facility] Comment on above: Result Comment: Sour ce- MDRD equation with creatinine calibration to IDMS(NKDEP) eGFR not recommended for drug dose adjustment Performed By: #### H EMOG, BMP3, CK3 ####[facility] [place] [address] [place] [address] Potassium molar conc 3.7 mmol/L Normal 3.5-5.1 [facility] Comment on above: Performed By: #### H EMOG, BMP3, CK3 ####[facility] [place] [address] [place] [address] Chloride 103 mmol/L Normal 98-107 [facility] Comment on above: Performed By: #### H EMOG, BMP3, CK3 ####[facility] [place] [address] Sodium 137 mmol/L Normal 137-145 [facility] Comment on above: Performed By: #### H EMOG, BMP3, CK3 ####[facility] [place] [address] [place] [address] CKon 02-23-2018 Creatine kinase (CK) 121 U/L Normal 30-170 [facility] Comment on above: Performed By: #### H EMOG, BMP3, CK3 ####[facility] [place] [address] [place] [address] Hemogramon 02-23-2018 Erythrocyte distribution width Auto Ratio (RBC) 13.5 % Normal 11.5-14.5 [facility] Comment on above: Performed By: #### H EMOG, BMP3, CK3 ####[facility] [place] [address] [place] [address] Erythrocytes (RBC) 5.17 10*6/uL Normal 4.40-5.90 [facility] Comment on above: Performed By: #### H EMOG, BMP3, CK3 ####[facility] [place] [address] [place] [address] Hematocrit (HCT) 42.8 % Normal 40.0-52.0 [facility] Comment on above: Performed By: #### H EMOG, BMP3, CK3 ####[facility] [place] [address] [place] [address] Hemoglobin mass conc (Bld) 14.8 g/dL Normal 13.0-18.0 [facility] Comment on above: Performed By: #### H EMOG, BMP3, CK3 ####[facility] [place] [address] [place] [address] MCH 28.7 pg Normal 26.0-34.0 [facility] Comment on above: Performed By: #### H EMOG, BMP3, CK3 ####[place] [address] [place] [address] MCHC mass conc (RBC) 34.6 % Normal 32.0-36.0 [facility] Comment on above: Performed By: #### H EMOG, BMP3, CK3 ####[place] [address] [place] [address] MCV 82.8 fL Normal 80.0-98.0 [facility] Comment on above: Performed By: #### H EMOG, BMP3, CK3 ####[place] [address] [place] [address] Platelet mean volume (PMV) 10.3 fL Normal 7.4-10.4 [facility] Comment on above: Performed By: #### H EMOG, BMP3, CK3 ####[address] [place] [address] Platelets 140 10*3/uL Normal 140-440 [facility] Comment on above: Performed By: #### H EMOG, BMP3, CK3 ####[place] [address] [place] [address] WBC (Leukocytes) 5.0 10*3/uL Normal 3.6-10.7 [facility] Comment on above: Performed By: #### H EMOG, BMP3, CK3 ####[place] [address] [place] [address] Urinalysis,Macroon 8 Bilirubin (direct) Negative Normal Negative [facility] Comment on above: Performed By: #### U AMAC ####[place] [address] [place] [address] Ketone,Urine Negative Normal Negative [facility] Comment on above: Performed By: #### U AMAC ####[place] [address] [place] [address] Occult Blood,Ur Negative Normal Negative [facility] Comment on above: Performed By: #### U AMAC ####[place] [address] [place] [address] Specific [place],Urine 1.005 Normal 1.005-1.030 [facility] Comment on above: Performed By: #### U AMAC ####[place] [address] [place] [address] Total Protein,Urine Negative Normal Negative [facility] Comment on above: Performed By: #### U AMAC ####[facility] [place] [address] Urine, appearance CLEAR Normal Clear [facility] Comment on above: Performed By: #### U AMAC ####[facility] [place] [address] Urine, color YELLOW Normal Lt. Yellow [facility] Comment on above: Performed By: #### U AMAC ####[facility] [place] [address] Urine, glucose presence Negative Normal Negative [facility] Comment on above: Performed By: #### U AMAC ####[place] [address] [place] [address] Urine, nitrite presence Negative Normal Negative [facility] Comment on above: Performed By: #### U AMAC ####[facility] [place] [address] [place] [address] Urine, pH 6.5 Normal 5.0-8.0 [facility] Comment on above: Performed By: #### U AMAC ####[place] [address] [place] [address] Urine, urobilinogen 0.2 mg/dL Normal 0-1 [facility] Comment on above: Performed By: #### U AMAC ####[facility] [place] [address] WBC (Leukocytes) Negative Normal Negative [facility] Comment on above: Performed By: #### U AMAC ####[facility] [place] [address] [place] [address] Vital Signs Date Time Vital Sign Value Performing Clinician Facility 2024 11:07-0400 Blood Pressure Location Alfred Kyriesimon [facility] 2024 11:07-0400 Diastolic blood pressure 88 mm[Hg] Alfred Sarmini [facility] 2024 11:07-0400 Heart rate 88 /min Alfred Sarmini [facility] 2024 11:07-0400 Respiratory rate 16 /min Alfred Sarmini [facility] 2024 11:07-0400 Systolic blood pressure 148 mm[Hg] Alfred Sarmini [facility] 07-17-2024 20:36-0400 Body temperature 98.24 [degF] Neil Alexander [facility] 07-17-2024 20:36-0400 Diastolic blood pressure 96 mm[Hg] Neil Alexander [facility] 07-17-2024 20:36-0400 Heart rate 85 /min Neil Benjamin [facility] 07-17-2024 20:36-0400 Respiratory rate 20 /min Neil Alexander [facility] 07-17-2024 20:36-0400 SaO2% (BldA) [Mass fraction] 96 % Neil Alexander [facility] 07-17-2024 20:36-0400 Systolic blood pressure 148 mm[Hg] Neil Benjamin [facility] 07-16-2024 21:18-0400 Body temperature 97.88 [degF] Neil Benjamin [facility] 07-16-2024 21:18-0400 Diastolic blood pressure 80 mm[Hg] Neil Benjamin [facility] 07-16-2024 21:18-0400 Heart rate 73 /min Neil Alexander [facility] 07-16-2024 21:18-0400 Respiratory rate 16 /min Neil Alexander [facility] 07-16-2024 21:18-0400 SaO2% (BldA) [Mass fraction] 98 % Neil Alexander [facility] 07-16-2024 21:18-0400 Systolic blood pressure 138 mm[Hg] Neil Alexander [facility] 07-16-2024 16:02-0400 Diastolic blood pressure 82 mm[Hg] DO Gustavo Tupa Work Phone: [facility] 07-16-2024 16:02-0400 Heart rate 60 /min DO Gustavo Tupa Work Phone: [facility] 07-16-2024 16:02-0400 Respiratory rate 18 /min DO Gustavo Tupa Work Phone: [facility] 07-16-2024 16:02-0400 SaO2% (BldA) [Mass fraction] 98 % DO Gustavo Tupa Work Phone: [facility] 07-16-2024 16:02-0400 Systolic blood pressure 118 mm[Hg] DO Gustavo Tupa Work Phone: [facility] 07-16-2024 12:12-0400 Body temperature 98.5 [degF] DO Gustavo Tupa Work Phone: [facility] 07-16-2024 12:03-0400 Body height 167.64 cm DO Gustavo Tupa Work Phone: [facility] 07-16-2024 12:03-0400 Body weight 96.3 kg DO Gustavo Tupa Work Phone: [facility] 07-15-2024 15:09-0400 Diastolic blood pressure 109 mm[Hg] DO Gustavo Tupa Work Phone: [facility] 07-15-2024 15:09-0400 Heart rate 89 /min DO Gustavo Tupa Work Phone: [facility] 07-15-2024 15:09-0400 Systolic blood pressure 152 mm[Hg] DO Gustavo Tupa Work Phone: [facility] 07-15-2024 13:25-0400 Body height 167.64 cm DO Gustavo Tupa Work Phone: [facility] 07-15-2024 13:25-0400 Body temperature 98.5 [degF] DO Gustavo Tupa Work Phone: [facility] 07-15-2024 13:25-0400 Body weight 94 kg DO Gustavo Tupa Work Phone: [facility] 07-15-2024 13:25-0400 Respiratory rate 18 /min DO Gustavo Tupa Work Phone: [facility] 07-15-2024 13:25-0400 SaO2% (BldA) [Mass fraction] 98 % DO Gustavo Tupa Work Phone: [facility] 07-15-2024 10:07-0400 Body mass index (BMI) [Ratio] 33.4 kg/m2 DO Gustavo Tupa Work Phone: [facility] 07-15-2024 10:07-0400 Diastolic blood pressure 97 mm[Hg] DO Gustavo Tupa Work Phone: [facility] 07-15-2024 10:07-0400 Systolic blood pressure 131 mm[Hg] DO Gustavo Tupa Work Phone: [facility] 07-15-2024 10:01-0400 Body height 167.64 cm DO Gustavo Tupa Work Phone: [facility] 07-15-2024 10:01-0400 Body weight 93.92 kg DO Gustavo Tupa Work Phone: [facility] 07-14-2024 15:16-0400 Diastolic blood pressure 80 mm[Hg] DO Gustavo Tupa Work Phone: [facility] 07-14-2024 15:16-0400 Heart rate 64 /min DO Gustavo Tupa Work Phone: [facility] 07-14-2024 15:16-0400 Respiratory rate 16 /min DO Gustavo Tupa Work Phone: [facility] 07-14-2024 15:16-0400 SaO2% (BldA) [Mass fraction] 100 % DO Gustavo Tupa Work Phone: [facility] 07-14-2024 15:16-0400 Systolic blood pressure 135 mm[Hg] DO Gustavo Tupa Work Phone: [facility] 07-14-2024 12:29-0400 Body height 167.64 cm DO Gustavo Tupa Work Phone: [facility] 07-14-2024 12:29-0400 Body weight 95.25 kg DO Gustavo Tupa Work Phone: [facility] 07-11-2024 14:00-0400 Diastolic blood pressure 89 mm[Hg] [facility] 07-11-2024 14:00-0400 Heart rate 63 /min [facility] 07-11-2024 14:00-0400 Mean blood pressure 109 mm[Hg] [facility] 07-11-2024 14:00-0400 SaO2% (BldA) [Mass fraction] 99 % [facility] 07-11-2024 14:00-0400 Systolic blood pressure 150 mm[Hg] [facility] 07-11-2024 13:00-0400 Diastolic blood pressure 67 mm[Hg] [facility] 07-11-2024 13:00-0400 Mean blood pressure 85 mm[Hg] [facility] 07-11-2024 13:00-0400 Respiratory rate 14 /min [facility] 07-11-2024 13:00-0400 Systolic blood pressure 121 mm[Hg] [facility] 07-11-2024 12:01-0400 Diastolic blood pressure 79 mm[Hg] [facility] 07-11-2024 12:01-0400 Heart rate 61 /min [facility] 07-11-2024 12:01-0400 Mean blood pressure 89 mm[Hg] [facility] 07-11-2024 12:01-0400 Respiratory rate 16 /min [facility] 07-11-2024 12:01-0400 SaO2% (BldA) [Mass fraction] 97 % [facility] 07-11-2024 12:01-0400 Systolic blood pressure 110 mm[Hg] [facility] 07-11-2024 10:45-0400 Body temperature 98.06 [degF] [facility] 07-11-2024 10:45-0400 Heart rate 86 /min [facility] 07-11-2024 10:45-0400 Respiratory rate 18 /min [facility] 07-09-2024 20:29-0400 Diastolic blood pressure 97 mm[Hg] [facility] 07-09-2024 20:29-0400 Heart rate 71 /min [facility] 07-09-2024 20:29-0400 Mean blood pressure 111 mm[Hg] [facility] 07-09-2024 20:29-0400 Respiratory rate 21 /min [facility] 07-09-2024 20:29-0400 SaO2% (BldA) [Mass fraction] 97 % [facility] 07-09-2024 20:29-0400 Systolic blood pressure 139 mm[Hg] [facility] 07-09-2024 20:01-0400 Diastolic blood pressure 107 mm[Hg] [facility] 07-09-2024 20:01-0400 Heart rate 71 /min [facility] 07-09-2024 20:01-0400 Mean blood pressure 119 mm[Hg] [facility] 07-09-2024 20:01-0400 Respiratory rate 16 /min [facility] 07-09-2024 20:01-0400 SaO2% (BldA) [Mass fraction] 96 % [facility] 07-09-2024 20:01-0400 Systolic blood pressure 143 mm[Hg] [facility] 07-09-2024 19:51-0400 Diastolic blood pressure 110 mm[Hg] [facility] 07-09-2024 19:51-0400 Systolic blood pressure 145 mm[Hg] [facility] 07-09-2024 19:02-0400 Heart rate 85 /min [facility] 07-09-2024 18:24-0400 Body temperature 98.24 [degF] [facility] 07-09-2024 18:24-0400 Heart rate 91 /min [facility] 07-09-2024 18:24-0400 Respiratory rate 18 /min [facility] 07-09-2024 18:24-0400 SaO2% (BldA) [Mass fraction] 98 % [facility] 06-07-2023 14:13-0400 Diastolic blood pressure 82 mm[Hg] Text Entry Free [facility] 06-07-2023 14:13-0400 Heart rate 59 /min Text Entry Free [facility] 06-07-2023 14:13-0400 Systolic blood pressure 107 mm[Hg] Text Entry Free [facility] 06-07-2023 11:51-0400 SaO2% (BldA) [Mass fraction] 100 % Text Entry Free [facility] 06-07-2023 10:01-0400 Body height 167.6 cm Text Entry Free [facility] 06-07-2023 10:01-0400 Body temperature 96.98 [degF] Text Entry Free [facility] 06-07-2023 10:01-0400 Body weight 95 kg Text Entry Free [facility] 06-07-2023 10:01-0400 Respiratory rate 16 /min Text Entry Free [facility] 06-06-2023 22:55-0400 Diastolic blood pressure 86 mm[Hg] Text Entry Free [facility] 06-06-2023 22:55-0400 Heart rate 68 /min Text Entry Free [facility] 06-06-2023 22:55-0400 Respiratory rate 20 /min Text Entry Free [facility] 06-06-2023 22:55-0400 SaO2% (BldA) [Mass fraction] 97 % Text Entry Free [facility] 06-06-2023 22:55-0400 Systolic blood pressure 133 mm[Hg] Text Entry Free [facility] 06-06-2023 20:28-0400 Body height 167.6 cm Text Entry Free [facility] 06-06-2023 20:28-0400 Body temperature 97.34 [degF] Text Entry Free [facility] 06-06-2023 20:28-0400 Body weight 100 kg Text Entry Free [facility] 06-04-2023 18:52-0400 Diastolic blood pressure 80 mm[Hg] Text Entry Free [facility] 06-04-2023 18:52-0400 Heart rate 72 /min Text Entry Free [facility] 06-04-2023 18:52-0400 Respiratory rate 16 /min Text Entry Free [facility] 06-04-2023 18:52-0400 SaO2% (BldA) [Mass fraction] 97 % Text Entry Free [facility] 06-04-2023 18:52-0400 Systolic blood pressure 121 mm[Hg] Text Entry Free [facility] 06-04-2023 17:07-0400 Body height 167.6 cm Text Entry Free [facility] 06-04-2023 17:07-0400 Body temperature 97.7 [degF] Text Entry Free [facility] 06-04-2023 17:07-0400 Body weight 91 kg Text Entry Free [facility] 06-01-2023 12:01-0400 Body height 170 cm MD Jaelyn Jean MD [facility] [place] 06-01-2023 12:01-0400 Body weight 88.6 kg MD Jaelyn Jean MD [facility] [place] 05-30-2023 13:48-0400 Body temperature 98.71 [degF] Riley Crawford MD Work Phone: [employer] 05-30-2023 13:48-0400 Diastolic blood pressure 69 mm[Hg] Riley Crawford MD Work Phone: [employer] 05-30-2023 13:48-0400 Heart rate 71 /min Riley Crawford MD Work Phone: [employer] 05-30-2023 13:48-0400 Respiratory rate 18 /min Riley Crawford MD Work Phone: [employer] 05-30-2023 13:48-0400 SaO2% (BldA) [Mass fraction] 96 % Riley Crawford MD Work Phone: [employer] 05-30-2023 13:48-0400 Systolic blood pressure 118 mm[Hg] Riley Crawford MD Work Phone: [employer] 05-11-2023 20:04-0400 Body height 167.6 cm MD Anne Inman MD [facility] [place] 05-11-2023 20:04-0400 Body mass index (BMI) [Ratio] 31.5 kg/m2 MD Anne Inman MD [facility] [place] 05-11-2023 20:04-0400 Body weight 88.6 kg MD Anne Inman MD [facility] [place] 05-05-2023 22:04-0400 Diastolic blood pressure 77 mm[Hg] [facility] 05-05-2023 22:04-0400 Heart rate 70 /min [facility] 05-05-2023 22:04-0400 Respiratory rate 20 /min [facility] 05-05-2023 22:04-0400 SaO2% (BldA) [Mass fraction] 96 % [facility] 05-05-2023 22:04-0400 Systolic blood pressure 127 mm[Hg] [facility] 05-05-2023 18:15-0400 Body height 167.64 cm [facility] 05-05-2023 18:15-0400 Body temperature 98.2 [degF] [facility] 05-05-2023 18:15-0400 Body weight 90.71 kg [facility] 05-05-2023 11:36-0400 Diastolic blood pressure 81 mm[Hg] [facility] 05-05-2023 11:36-0400 Heart rate 91 /min [facility] 05-05-2023 11:36-0400 Respiratory rate 18 /min [facility] 05-05-2023 11:36-0400 SaO2% (BldA) [Mass fraction] 100 % [facility] 05-05-2023 11:36-0400 Systolic blood pressure 122 mm[Hg] [facility] 05-05-2023 07:53-0400 Body height 167.64 cm [facility] 05-05-2023 07:53-0400 Body temperature 97.8 [degF] [facility] 05-05-2023 07:53-0400 Body weight 99.79 kg [facility] 02-02-2023 20:55-0400 Diastolic blood pressure 94 mm[Hg] Kenn Rodriguez MD Work Phone: [facility] [email or web address] 02-02-2023 20:55-0400 Systolic blood pressure 138 mm[Hg] Kenn Rodriguez MD Work Phone: [facility] [email or web address] 02-02-2023 19:11-0400 Body temperature 98.29 [degF] Kenn Rodriguez MD Work Phone: [facility] [email or web address] 02-02-2023 19:11-0400 Heart rate 56 /min Kenn Rodriguez MD Work Phone: [facility] [email or web address] 02-02-2023 19:11-0400 Respiratory rate 19 /min Kenn Rodriguez MD Work Phone: [facility] [email or web address] 02-02-2023 19:11-0400 SaO2% (BldA) [Mass fraction] 98 % Kenn Rodriguez MD Work Phone: [facility] [email or web address] 02-02-2023 18:34-0400 Body height 167.6 cm Kenn Rodriguez MD Work Phone: [facility] [email or web address] 02-02-2023 18:34-0400 Body mass index (BMI) [Ratio] 32.28 kg/m2 Kenn Rodriguez MD Work Phone: [facility] [email or web address] 02-02-2023 18:34-0400 Body weight 90.72 kg Kenn Rodriguez MD Work Phone: [facility] [email or web address] 02-01-2023 12:33-0400 Diastolic blood pressure 90 mm[Hg] Lila Vera DO Work Phone: [employer] 02-01-2023 12:33-0400 Heart rate 72 /min Lila Vera DO Work Phone: [employer] 02-01-2023 12:33-0400 Respiratory rate 18 /min Lila Vera DO Work Phone: [employer] 02-01-2023 12:33-0400 SaO2% (BldA) [Mass fraction] 99 % Lila Vera DO Work Phone: [facility] [email or web address] 02-01-2023 12:33-0400 Systolic blood pressure 144 mm[Hg] Lila Vera DO Work Phone: [facility] [email or web address] 02-01-2023 07:48-0400 Body mass index (BMI) [Ratio] 32.28 kg/m2 Lila Vera DO Work Phone: [facility] [email or web address] 02-01-2023 07:48-0400 Body temperature 98.1 [degF] Lila Vera DO Work Phone: [facility] [email or web address] 02-01-2023 07:48-0400 Body weight 90.72 kg Lila Vera DO Work Phone: [facility] [email or web address] 02-01-2023 05:15-0400 Diastolic blood pressure 88 mm[Hg] Susu Collins MD Work Phone: [facility] [email or web address] 02-01-2023 05:15-0400 Heart rate 94 /min Susu Collins MD Work Phone: [facility] [email or web address] 02-01-2023 05:15-0400 SaO2% (BldA) [Mass fraction] 98 % Susu Collins MD Work Phone: [facility] [email or web address] 02-01-2023 05:15-0400 Systolic blood pressure 138 mm[Hg] Susu Collins MD Work Phone: [facility] [email or web address] 02-01-2023 02:01-0400 Respiratory rate 18 /min Susu Collins MD Work Phone: [facility] [email or web address] 02-01-2023 00:30-0400 Body height 167.6 cm Susu Collins MD Work Phone: [facility] 02-01-2023 00:30-0400 Body mass index (BMI) [Ratio] 32.28 kg/m2 Susu Collins MD Work Phone: [facility] 02-01-2023 00:30-0400 Body weight 90.72 kg Susu Collins MD Work Phone: [facility] 02-01-2023 00:25-0400 Body temperature 97.81 [degF] Susu Collins MD Work Phone: [facility] 01-29-2023 08:58-0400 Diastolic blood pressure 102 mm[Hg] Text [employer] [facility] 01-29-2023 08:58-0400 Heart rate 64 /min Text Entry [facility] 01-29-2023 08:58-0400 Respiratory rate 16 /min Text Entry [facility] 01-29-2023 08:58-0400 SaO2% (BldA) [Mass fraction] 98 % Text Entry [facility] 01-29-2023 08:58-0400 Systolic blood pressure 142 mm[Hg] Text Entry [facility] 01-29-2023 02:21-0400 Body temperature 97.7 [degF] Text Entry [facility] 01-22-2023 18:42-0400 Body height 167.64 cm DO Kay Desouza DO [facility] 01-22-2023 18:42-0400 Body weight 88.6 kg DO Kay Lyly DO [facility] 09-05-2021 17:27-0500 Diastolic blood pressure 79 mm[Hg] Viral Amado Other Phone: [facility] 09-05-2021 17:27-0500 Systolic blood pressure 125 mm[Hg] Viral Amado Other Phone: [facility] 09-05-2021 17:26-0500 Respiratory rate 22 /min Viral Amado Other Phone: [facility] 09-05-2021 16:00-0500 Heart rate 65 /min Viral Amado Other Phone: [facility] 09-05-2021 16:00-0500 SaO2% (BldA) [Mass fraction] 94 % Viral Amado Other Phone: [facility] 09-05-2021 09:48-0500 Body height 170.1 cm Viral Amado Other Phone: [facility] 09-05-2021 09:48-0500 Body temperature 98.24 [degF] Viral Amado Other Phone: [facility] 09-05-2021 09:48-0500 Body weight 88 kg Viral Amado Other Phone: [facility] 08-28-2021 10:24-0500 Diastolic blood pressure 80 mm[Hg] Viral Amado Work Phone: [facility]ffefnho[facility]Stdlm [facility] Work Phone: 08-28-2021 10:24-0500 Heart rate 80 /min Viral Amado Work Phone: [facility]Xawcstpvah-Vndxt d Work Phone: 08-28-2021 10:24-0500 Systolic blood pressure 126 mm[Hg] Viral Amado Work Phone: [facility]Jgsykovcnh-Cmyey [facility] Work Phone: 08-23-2021 16:23-0500 Body height 167.64 cm Viral Amado Work Phone: NM[facility]Ujjrurtaus-Wmjok d Work Phone: 08-23-2021 16:23-0500 Body mass index (BMI) [Ratio] 32.93 kg/m2 Viral Amado Work Phone: HO-Fwkdypyyvu-Kjjok d Work Phone: 08-23-2021 16:23-0500 Body surface area Derived from formula 2.02 m2 Viral S Aneudy Work Phone: AS-Oepsksqmpw-Cgdzt d Work Phone: 08-23-2021 16:23-0500 Body weight 92.53 kg Viral Amado Work Phone: JB-Wagozprqhu-Vxbfv d Work Phone: 08-23-2021 16:23-0500 Diastolic blood pressure 80 mm[Hg] Viral Amado Work Phone: AH-Ukhkhsidjo-Jdula d Work Phone: 08-23-2021 16:23-0500 Heart rate 86 /min Viral Amado Work Phone: CG-Fycmfyouwm-Wkrgz d Work Phone: 08-23-2021 16:23-0500 Respiratory rate 14 /min Viral Amado Work Phone: OX-Ycuggpwqrf-Kzted d Work Phone: 08-23-2021 16:23-0500 SaO2% (BldA) [Mass fraction] 93 % Viral Amado Work Phone: AW-Nopjjzgcre-Yjcbq d Work Phone: 08-23-2021 16:23-0500 Systolic blood pressure 122 mm[Hg] Viral Amado Work Phone: NT-Cvhzdqlgmw-Feuik d Work Phone: 08-22-2021 17:21-0500 Body weight 88.6 kg MD Lily Smith MD [facility] 08-20-2021 15:14-0500 Diastolic blood pressure 71 mm[Hg] Viral Aneudy Other Phone: [facility] 08-20-2021 15:14-0500 Heart rate 67 /min Viral Amado Other Phone: [facility] 08-20-2021 15:14-0500 Respiratory rate 16 /min Viral Amado Other Phone: [facility] 08-20-2021 15:14-0500 SaO2% (BldA) [Mass fraction] 97 % Viral Amado Other Phone: [facility] 08-20-2021 15:14-0500 Systolic blood pressure 102 mm[Hg] Viral Amado Other Phone: [facility] 08-20-2021 08:28-0500 Body height 167.6 cm Viral Amado Other Phone: [facility] 08-20-2021 08:28-0500 Body temperature 98.6 [degF] Viral Amado Other Phone: [facility] 08-20-2021 08:28-0500 Body weight 90 kg Viral Amado Other Phone: [facility] 08-19-2021 15:09-0500 Diastolic blood pressure 72 mm[Hg] Viral Amado Other Phone: [facility] 08-19-2021 15:09-0500 Heart rate 101 /min Viral Amado Other Phone: [facility] 08-19-2021 15:09-0500 Respiratory rate 18 /min Viral Amado Other Phone: [facility] 08-19-2021 15:09-0500 SaO2% (BldA) [Mass fraction] 95 % Viral Amado Other Phone: [facility] 08-19-2021 15:09-0500 Systolic blood pressure 119 mm[Hg] Viral Amado Other Phone: [facility] 08-19-2021 14:06-0500 Body height 167.6 cm Viral Amado Other Phone: [facility] 08-19-2021 14:06-0500 Body temperature 97.88 [degF] Viral Amado Other Phone: [facility] 08-19-2021 14:06-0500 Body weight 90 kg Viral Amado Other Phone: [facility] 08-16-2021 14:30-0500 Body mass index (BMI) [Ratio] 33.1 kg/m2 MD Lily Smith MD [facility] 08-16-2021 14:30-0500 Body weight 93.1 kg MD Lily Smith MD [facility] 08-13-2021 02:11-0500 Diastolic blood pressure 89 mm[Hg] Viral Amado Other Phone: [facility] 08-13-2021 02:11-0500 Heart rate 71 /min Viral Amado Other Phone: [facility] 08-13-2021 02:11-0500 Respiratory rate 20 /min Viral Amado Other Phone: [facility] 08-13-2021 02:11-0500 SaO2% (BldA) [Mass fraction] 96 % Viral Amado Other Phone: [facility] 08-13-2021 02:11-0500 Systolic blood pressure 126 mm[Hg] Viral Amado Other Phone: [facility] 07-28-2021 09:10-0400 Body mass index (BMI) [Ratio] 33.8 kg/m2 DO Christopher Longinow DO [facility] 07-28-2021 09:10-0400 Body weight 95 kg DO Christopher Longinow DO [facility] 07-26-2021 16:16-0400 Body weight 90 kg MD Lily Smith MD [facility] 07-14-2021 12:20-0400 Body weight 84.4 kg MD Callum Bronson MD [facility] 07-13-2021 15:40-0400 Body weight 91.4 kg MD Shell Linares MD [facility] 07-11-2021 18:39-0400 Body mass index (BMI) [Ratio] 32.5 kg/m2 DO Kay Desouza DO [facility] 07-11-2021 18:39-0400 Body weight 91.4 kg DO Kay Desouza DO [facility] 07-10-2021 14:42-0400 Diastolic blood pressure 84 mm[Hg] Viral Amado Work Phone: [facility] Work Phone: 07-10-2021 14:42-0400 Systolic blood pressure 124 mm[Hg] Viral Amado Work Phone: [facility] Work Phone: 07-10-2021 14:41-0400 Body temperature 97.5 [degF] Viral Amado Work Phone: [facility] Work Phone: 07-10-2021 14:41-0400 Diastolic blood pressure 81 mm[Hg] Viral Amado Work Phone: [facility] Work Phone: 07-10-2021 14:41-0400 Heart rate 66 /min Viral Amado Work Phone: [facility] Work Phone: 07-10-2021 14:41-0400 Respiratory rate 18 /min Viral Amado Work Phone: [facility] Work Phone: 07-10-2021 14:41-0400 SaO2% (BldA) [Mass fraction] 97 % Viral Amado Work Phone: [facility] Work Phone: 07-10-2021 14:41-0400 Systolic blood pressure 128 mm[Hg] Viral Brennon Aneudy Work Phone: [facility] Work Phone: 07-10-2021 14:41-0400 8 1 Viral Willett Aneudy Work Phone: [facility] Work Phone: Comment on above: [employer] 07-10-2021 12:01-0400 Body weight 91.4 kg MD Kristen Ambrocio MD [facility] 07-05-2021 10:28-0400 Diastolic blood pressure 86 mm[Hg] Viral Amado Other Phone: [facility] 07-05-2021 10:28-0400 Systolic blood pressure 137 mm[Hg] Viral Amado Other Phone: [facility] 07-05-2021 07:16-0400 Body temperature 98.06 [degF] Viral Amado Other Phone: [facility] 07-05-2021 07:16-0400 Heart rate 57 /min Viral Amado Other Phone: [facility] 07-05-2021 07:16-0400 Respiratory rate 16 /min Viral Amado Other Phone: [facility] 07-05-2021 07:16-0400 SaO2% (BldA) [Mass fraction] 95 % Viral Amado Other Phone: [facility] 07-05-2021 03:53-0400 Body height 165.1 cm Viral Amado Other Phone: [facility] 07-05-2021 03:53-0400 Body weight 86.4 kg Viral Amado Other Phone: [facility] 06-28-2021 09:34-0400 Diastolic blood pressure 77 mm[Hg] Viral Amado Work Phone: [facility] Work Phone: 06-28-2021 09:34-0400 Systolic blood pressure 113 mm[Hg] Viral Amado Work Phone: [facility] Work Phone: 06-28-2021 09:32-0400 Body height 167.64 cm Viral Amado Work Phone: [facility] Work Phone: 06-28-2021 09:32-0400 Body mass index (BMI) [Ratio] 31.47 kg/m2 Viral Amado Work Phone: [facility] Work Phone: 06-28-2021 09:32-0400 Body surface area Derived from formula 1.98 m2 Viral Amado Work Phone: [facility] Work Phone: 06-28-2021 09:32-0400 Body weight 88.45 kg Viral Amado Work Phone: [facility] Work Phone: 06-28-2021 09:32-0400 Diastolic blood pressure 68 mm[Hg] Viral Amado Work Phone: [facility] Work Phone: 06-28-2021 09:32-0400 Heart rate 91 /min Viral Amado Work Phone: [facility] Work Phone: 06-28-2021 09:32-0400 Respiratory rate 14 /min Viral Amado Work Phone: [facility] Work Phone: 06-28-2021 09:32-0400 SaO2% (BldA) [Mass fraction] 96 % Viral Amado Work Phone: [facility] Work Phone: 06-28-2021 09:32-0400 Systolic blood pressure 110 mm[Hg] Viral Brennon Amado Work Phone: [facility] Work Phone: 06-28-2021 09:32-0400 0 1 Viral S Aneudy Work Phone: [facility] Work Phone: Comment on above: [employer] 06-27-2021 01:07-0400 Diastolic blood pressure 83 mm[Hg] Viral Amado Other Phone: [facility] 06-27-2021 01:07-0400 Heart rate 73 /min Viral Amado Other Phone: [facility] 06-27-2021 01:07-0400 Respiratory rate 18 /min Viral Amado Other Phone: [facility] 06-27-2021 01:07-0400 SaO2% (BldA) [Mass fraction] 100 % Viral Amado Other Phone: [facility] 06-27-2021 01:07-0400 Systolic blood pressure 129 mm[Hg] Viral Amado Other Phone: [facility] 06-26-2021 16:46-0400 Body height 175.2 cm Viral Amado Other Phone: [facility] 06-26-2021 16:46-0400 Body temperature 97.88 [degF] Viral Amado Other Phone: [facility] 06-26-2021 16:46-0400 Body weight 76 kg Viral Amado Other Phone: [facility] 06-23-2021 08:06-0400 Body mass index (BMI) [Ratio] 32.77 kg/m2 Viral Amado Work Phone: [facility] Work Phone: 06-23-2021 08:06-0400 Body surface area Derived from formula 2.01 m2 Viral Amado Work Phone: [facility] Work Phone: 06-23-2021 08:06-0400 Body weight 92.08 kg Viral Amado Work Phone: [facility] Work Phone: 06-23-2021 08:06-0400 Diastolic blood pressure 76 mm[Hg] Viral Amado Work Phone: [facility] Work Phone: 06-23-2021 08:06-0400 Heart rate 76 /min Viral Amado Work Phone: [facility] Work Phone: 06-23-2021 08:06-0400 Systolic blood pressure 136 mm[Hg] Viral Amado Work Phone: [facility] Work Phone: 06-20-2021 14:03-0400 Diastolic blood pressure 50 mm[Hg] Viral Amado Work Phone: [facility] Work Phone: 06-20-2021 14:03-0400 Systolic blood pressure 80 mm[Hg] Viral Amado Work Phone: [facility] Work Phone: 06-20-2021 14:02-0400 Body temperature 97.1 [degF] Viral Amado Work Phone: [facility] Work Phone: 06-20-2021 14:02-0400 Diastolic blood pressure 70 mm[Hg] Viral Amado Work Phone: [facility] Work Phone: 06-20-2021 14:02-0400 Heart rate 84 /min Viral Amado Work Phone: [facility] Work Phone: 06-20-2021 14:02-0400 Respiratory rate 14 /min Viral Amado Work Phone: [facility] Work Phone: 06-20-2021 14:02-0400 SaO2% (BldA) [Mass fraction] 98 % Viral Amado Work Phone: [facility] Work Phone: 06-20-2021 14:02-0400 Systolic blood pressure 107 mm[Hg] Viral Amado Work Phone: [facility] Work Phone: 06-20-2021 14:02-0400 0 1 Viral Amado Work Phone: [facility] Work Phone: Comment on above: [employer] 06-20-2021 07:46-0400 Body mass index (BMI) [Ratio] 31.8 kg/m2 MD Lily Smith MD [facility] 06-20-2021 07:46-0400 Body weight 89.6 kg MD Lily Smith MD [facility] 06-19-2021 16:16-0400 Body weight 98.3 kg MD Callum Bronson MD [facility] 06-18-2021 03:54-0400 Body mass index (BMI) [Ratio] 29.1 kg/m2 MD Josh Darnell MD [facility] 06-18-2021 03:54-0400 Body weight 87 kg MD Josh Darnell MD [facility] 06-14-2021 13:30-0400 Diastolic blood pressure 78 mm[Hg] Viral Amado Other Phone: [facility] 06-14-2021 13:30-0400 Systolic blood pressure 145 mm[Hg] Viral Amado Other Phone: [facility] 06-14-2021 12:57-0400 Heart rate 70 /min Viral Amado Other Phone: [facility] 06-14-2021 12:57-0400 Respiratory rate 18 /min Viral Amado Other Phone: [facility] 06-14-2021 12:57-0400 SaO2% (BldA) [Mass fraction] 97 % Viral Amado Other Phone: [facility] 06-14-2021 09:34-0400 Body height 167.6 cm Viral Amado Other Phone: [facility] 06-14-2021 09:34-0400 Body temperature 97.52 [degF] Viral Amado Other Phone: [facility] 06-14-2021 09:34-0400 Body weight 86 kg Viral Amado Other Phone: [facility] 06-12-2021 10:05-0400 Body mass index (BMI) [Ratio] 30.7 kg/m2 MD Callum Bronson MD [facility] 06-12-2021 10:05-0400 Body weight 86.4 kg MD Callum Bronson MD [facility] 06-07-2021 16:55-0400 Diastolic blood pressure 81 mm[Hg] Viral Amado Other Phone: [facility] 06-07-2021 16:55-0400 Heart rate 70 /min Viral Amado Other Phone: [facility] 06-07-2021 16:55-0400 Respiratory rate 16 /min Viral Amado Other Phone: [facility] 06-07-2021 16:55-0400 SaO2% (BldA) [Mass fraction] 98 % Viral Amado Other Phone: [facility] 06-07-2021 16:55-0400 Systolic blood pressure 116 mm[Hg] Viral Amado Other Phone: [facility] 06-07-2021 10:47-0400 Body height 167.6 cm Viral Amado Other Phone: [facility] 06-07-2021 10:47-0400 Body temperature 98.06 [degF] Viral Amado Other Phone: [facility] 06-07-2021 10:47-0400 Body weight 84 kg Viral Amado Other Phone: [facility] 06-03-2021 02:55-0400 Diastolic blood pressure 84 mm[Hg] Viral Amado Other Phone: [facility] 06-03-2021 02:55-0400 Heart rate 74 /min Viral Amado Other Phone: [facility] 06-03-2021 02:55-0400 Respiratory rate 16 /min Viral Amado Other Phone: [facility] 06-03-2021 02:55-0400 SaO2% (BldA) [Mass fraction] 98 % Viral Amado Other Phone: [facility] 06-03-2021 02:55-0400 Systolic blood pressure 130 mm[Hg] Viral Amado Other Phone: [facility] 05-31-2021 15:41-0400 Diastolic blood pressure 86 mm[Hg] Viral Amado Other Phone: [facility] 05-31-2021 15:41-0400 Heart rate 69 /min Viral Amado Other Phone: [facility] 05-31-2021 15:41-0400 Respiratory rate 16 /min Viral Amado Other Phone: [facility] 05-31-2021 15:41-0400 SaO2% (BldA) [Mass fraction] 98 % Viral Amado Other Phone: [facility] 05-31-2021 15:41-0400 Systolic blood pressure 129 mm[Hg] Viral Amado Other Phone: [facility] 05-31-2021 08:58-0400 Body height 167.6 cm Viral Amado Other Phone: [facility] 05-31-2021 08:58-0400 Body temperature 96.98 [degF] Viral Amado Other Phone: [facility] 05-31-2021 08:58-0400 Body weight 84 kg Viral Amado Other Phone: [facility] 05-31-2021 04:29-0400 Body height 167.6 cm Viral Amado Other Phone: [facility] 05-31-2021 04:29-0400 Body temperature 96.8 [degF] Viral Amado Other Phone: [facility] 05-31-2021 04:29-0400 Body weight 85 kg Viral Amado Other Phone: [facility] 05-31-2021 04:29-0400 Diastolic blood pressure 105 mm[Hg] Viral Amado Other Phone: [facility] 05-31-2021 04:29-0400 Heart rate 68 /min Viral Amado Other Phone: [facility] 05-31-2021 04:29-0400 Respiratory rate 16 /min Viral Amado Other Phone: [facility] 05-31-2021 04:29-0400 SaO2% (BldA) [Mass fraction] 95 % Viral Amado Other Phone: [facility] 05-31-2021 04:29-0400 Systolic blood pressure 159 mm[Hg] Viral Amado Other Phone: [facility] 05-27-2021 11:20-0400 Diastolic blood pressure 88 mm[Hg] Viral Amado Other Phone: [facility] 05-27-2021 11:20-0400 Heart rate 66 /min Viral Amado Other Phone: [facility] 05-27-2021 11:20-0400 SaO2% (BldA) [Mass fraction] 100 % Viral Amado Other Phone: [facility] 05-27-2021 11:20-0400 Systolic blood pressure 134 mm[Hg] Viral Amado Other Phone: [facility] 05-27-2021 08:12-0400 Body height 167.6 cm Viral Amado Other Phone: [facility] 05-27-2021 08:12-0400 Body temperature 97.88 [degF] Viral Amado Other Phone: [facility] 05-27-2021 08:12-0400 Body weight 86 kg Viral Amado Other Phone: [facility] 05-27-2021 08:12-0400 Respiratory rate 20 /min Viral Amado Other Phone: [facility] 05-25-2021 12:50-0400 Body height 177.8 cm Viral Amado Other Phone: [facility] 05-25-2021 12:50-0400 Body temperature 97.34 [degF] Viral Amado Other Phone: [facility] 05-25-2021 12:50-0400 Body weight 85 kg Viral Amado Other Phone: [facility] 05-25-2021 12:50-0400 Diastolic blood pressure 90 mm[Hg] Viral Amado Other Phone: [facility] 05-25-2021 12:50-0400 Heart rate 67 /min Viral Amado Other Phone: [facility] 05-25-2021 12:50-0400 Respiratory rate 18 /min Viral Amado Other Phone: [facility] 05-25-2021 12:50-0400 SaO2% (BldA) [Mass fraction] 99 % Viral Amado Other Phone: [facility] 05-25-2021 12:50-0400 Systolic blood pressure 136 mm[Hg] Viral Amado Other Phone: [facility] 05-16-2021 14:25-0400 Body mass index (BMI) [Ratio] 30.6 kg/m2 Other [facility] 05-16-2021 14:25-0400 Body weight 86.2 kg Other [facility] 05-11-2021 14:38-0400 Body height 167.64 cm Viral Willett Aneudy Work Phone: [facility] Work Phone: 05-11-2021 14:38-0400 Body mass index (BMI) [Ratio] 30.67 kg/m2 Viral Willett Aneudy Work Phone: [facility] Work Phone: 05-11-2021 14:38-0400 Body surface area Derived from formula 1.96 m2 Viral Brennon Amado Work Phone: [facility] Work Phone: 05-11-2021 14:38-0400 Body weight 86.18 kg Viral S Aneudy Work Phone: [facility] Work Phone: 05-10-2021 14:05-0400 Body weight 89 kg MD Shell Linares MD S 05-06-2021 10:12-0400 Body mass index (BMI) [Ratio] 26.7 kg/m2 MD Thang Caballero MD [facility] 05-06-2021 10:12-0400 Body weight 87 kg MD Thang Caballero MD [facility] 04-25-2021 11:11-0400 Diastolic blood pressure 85 mm[Hg] Viral Brennon Amado Work Phone: [facility] Work Phone: 04-25-2021 11:11-0400 Heart rate 71 /min Viral Brennon Amado Work Phone: [facility] Work Phone: 04-25-2021 11:11-0400 SaO2% (BldA) [Mass fraction] 99 % Viral Amado Work Phone: [facility] Work Phone: 04-25-2021 11:11-0400 Systolic blood pressure 132 mm[Hg] Viral Brennon Amado Work Phone: [facility] Work Phone: 04-25-2021 11:11-0400 3 1 Viral Brennon Amado Work Phone: [facility] Work Phone: Comment on above: [facility] 04-25-2021 11:07-0400 Body height 167.64 cm Viral Amado Work Phone: [facility] Work Phone: 04-25-2021 11:07-0400 Body mass index (BMI) [Ratio] 30.72 kg/m2 Viral Amado Work Phone: [facility] Work Phone: 04-25-2021 11:07-0400 Body surface area Derived from formula 1.96 m2 Viral Willett Aneudy Work Phone: [facility] Work Phone: 04-25-2021 11:07-0400 Body temperature 97.8 [degF] Viral Amado Work Phone: [facility] Work Phone: 04-25-2021 11:07-0400 Body weight 86.32 kg Viral Amado Work Phone: [facility] Work Phone: 04-25-2021 11:07-0400 Diastolic blood pressure 85 mm[Hg] Viral Willett Aneudy Work Phone: [facility] Work Phone: 04-25-2021 11:07-0400 Heart rate 70 /min Viral Willett Aneudy Work Phone: [facility] Work Phone: 04-25-2021 11:07-0400 Respiratory rate 18 /min Viral Willett Aneudy Work Phone: [facility] Work Phone: 04-25-2021 11:07-0400 Systolic blood pressure 127 mm[Hg] Viral S Aneudy Work Phone: [facility] Work Phone: 04-21-2021 14:14-0400 Diastolic blood pressure 78 mm[Hg] Viral Amado Other Phone: [facility] 04-21-2021 14:14-0400 Heart rate 66 /min Viral Amado Other Phone: [facility] 04-21-2021 14:14-0400 Respiratory rate 17 /min Viral Amado Other Phone: [facility] 04-21-2021 14:14-0400 SaO2% (BldA) [Mass fraction] 100 % Viral Aamdo Other Phone: [facility] 04-21-2021 14:14-0400 Systolic blood pressure 122 mm[Hg] Viral Amado Other Phone: [facility] 04-21-2021 12:51-0400 Body height 167.6 cm Viral Amado Other Phone: [facility] 04-21-2021 12:51-0400 Body temperature 97.34 [degF] Viral Amado Other Phone: [facility] 04-21-2021 12:51-0400 Body weight 84.5 kg Viral Amado Other Phone: [facility] 04-18-2021 18:00-0400 Body height 167.6 cm Viral Amado Other Phone: [facility] 04-18-2021 18:00-0400 Body temperature 99.14 [degF] Viral Amado Other Phone: [facility] 04-18-2021 18:00-0400 Body weight 84.8 kg Viral Amado Other Phone: [facility] 04-18-2021 18:00-0400 Diastolic blood pressure 81 mm[Hg] Viral Amado Other Phone: [facility] 04-18-2021 18:00-0400 Heart rate 94 /min Viral Amado Other Phone: [facility] 04-18-2021 18:00-0400 Respiratory rate 18 /min Viral Amado Other Phone: [facility] 04-18-2021 18:00-0400 SaO2% (BldA) [Mass fraction] 95 % iVral Amado Other Phone: [facility] 04-18-2021 18:00-0400 Systolic blood pressure 110 mm[Hg] Viral Amado Other Phone: [facility] 04-15-2021 16:00-0400 Diastolic blood pressure 98 mm[Hg] Viral Amado Other Phone: [facility] 04-15-2021 16:00-0400 Heart rate 88 /min Viral Amado Other Phone: [facility] 04-15-2021 16:00-0400 Respiratory rate 18 /min Viral Amado Other Phone: [facility] 04-15-2021 16:00-0400 SaO2% (BldA) [Mass fraction] 100 % Viral Amado Other Phone: [facility] 04-15-2021 16:00-0400 Systolic blood pressure 141 mm[Hg] Viral Amado Other Phone: [facility] 04-15-2021 14:14-0400 Body height 172.7 cm Viral Amado Other Phone: [facility] 04-15-2021 14:14-0400 Body temperature 98.06 [degF] Viral Amado Other Phone: [facility] 04-15-2021 14:14-0400 Body weight 85 kg Viral Amado Other Phone: [facility] 04-13-2021 23:30-0400 Diastolic blood pressure 98 mm[Hg] Viral Amado Other Phone: [facility] 04-13-2021 23:30-0400 Heart rate 73 /min Viral Amado Other Phone: [facility] 04-13-2021 23:30-0400 Respiratory rate 14 /min Viral Amado Other Phone: [facility] 04-13-2021 23:30-0400 SaO2% (BldA) [Mass fraction] 96 % Viral Amado Other Phone: [facility] 04-13-2021 23:30-0400 Systolic blood pressure 143 mm[Hg] Viral Amado Other Phone: [facility] 04-13-2021 17:30-0400 Body height 167.6 cm Viral Amado Other Phone: [facility] 04-13-2021 17:30-0400 Body temperature 97.16 [degF] Viral Amdao Other Phone: [facility] 04-13-2021 17:30-0400 Body weight 86.3 kg Viral Amado Other Phone: [facility] 04-13-2021 01:32-0400 Diastolic blood pressure 98 mm[Hg] Viral Amado Other Phone: [facility] 04-13-2021 01:32-0400 Heart rate 55 /min Viral Amado Other Phone: [facility] 04-13-2021 01:32-0400 Respiratory rate 16 /min Viral Amado Other Phone: [facility] 04-13-2021 01:32-0400 SaO2% (BldA) [Mass fraction] 100 % Viral Amado Other Phone: [facility] 04-13-2021 01:32-0400 Systolic blood pressure 130 mm[Hg] Viral Amado Other Phone: [facility] 04-12-2021 20:24-0400 Body height 167.6 cm Viral Amado Other Phone: [facility] 04-12-2021 20:24-0400 Body temperature 97.34 [degF] Viral Amado Other Phone: [facility] 04-12-2021 20:24-0400 Body weight 85 kg Viral Amado Other Phone: [facility] 04-12-2021 11:26-0400 Body height 167.64 cm Viral Amado Work Phone: [facility] Work Phone: 04-12-2021 11:26-0400 Body mass index (BMI) [Ratio] 30.51 kg/m2 Viral Amado Work Phone: [facility] Work Phone: 04-12-2021 11:26-0400 Body surface area Derived from formula 1.95 m2 Viral Amado Work Phone: [facility] Work Phone: 04-12-2021 11:26-0400 Body weight 85.73 kg Viral Amado Work Phone: [facility] Work Phone: 04-12-2021 11:26-0400 Diastolic blood pressure 76 mm[Hg] Viral Amado Work Phone: [facility] Work Phone: 04-12-2021 11:26-0400 Diastolic blood pressure 79 mm[Hg] Viral Amado Work Phone: [facility] Work Phone: 04-12-2021 11:26-0400 Heart rate 90 /min Viral Amado Work Phone: [facility] Work Phone: 04-12-2021 11:26-0400 SaO2% (BldA) [Mass fraction] 98 % Viral Amado Work Phone: [facility] Work Phone: 04-12-2021 11:26-0400 Systolic blood pressure 113 mm[Hg] Viral Amado Work Phone: [facility] Work Phone: 04-12-2021 11:26-0400 Systolic blood pressure 119 mm[Hg] Viral Amado Work Phone: [facility] Work Phone: 04-11-2021 19:16-0400 Body mass index (BMI) [Ratio] 30.2 kg/m2 DO Christopher Longinow DO [facility] 04-11-2021 19:16-0400 Body weight 85 kg DO Christopher Longinow DO [facility] 04-10-2021 14:33-0400 Body mass index (BMI) [Ratio] 21.6 kg/m2 MD Lily Smith MD [facility] 04-10-2021 14:33-0400 Body weight 85 kg MD Lily Smith MD [facility] 04-08-2021 11:04-0400 Body temperature 95.9 [degF] Viral Amado Other Phone: [facility] 04-08-2021 11:04-0400 Diastolic blood pressure 68 mm[Hg] Viral Amado Other Phone: [facility] 04-08-2021 11:04-0400 Heart rate 64 /min Viral Amado Other Phone: [facility] 04-08-2021 11:04-0400 Respiratory rate 16 /min Viral Amado Other Phone: [facility] 04-08-2021 11:04-0400 SaO2% (BldA) [Mass fraction] 100 % Viral Amado Other Phone: [facility] 04-08-2021 11:04-0400 Systolic blood pressure 128 mm[Hg] Viral Amado Other Phone: [facility] 04-04-2021 17:23-0400 Diastolic blood pressure 98 mm[Hg] Viral Amado Other Phone: [facility] 04-04-2021 17:23-0400 Heart rate 72 /min Viral Amado Other Phone: [facility] 04-04-2021 17:23-0400 Respiratory rate 18 /min Viral Amado Other Phone: [facility] 04-04-2021 17:23-0400 SaO2% (BldA) [Mass fraction] 97 % Viral Amado Other Phone: [facility] 04-04-2021 17:23-0400 Systolic blood pressure 125 mm[Hg] Viral Amado Other Phone: [facility] 04-04-2021 11:34-0400 Body height 167.6 cm Viral Amado Other Phone: [facility] 04-04-2021 11:34-0400 Body temperature 99.14 [degF] Viral Amado Other Phone: [facility] 04-04-2021 11:34-0400 Body weight 85 kg Viral Amado Other Phone: [facility] 03-30-2021 14:30-0400 Diastolic blood pressure 90 mm[Hg] [facility] [place] Phone: 03-30-2021 14:30-0400 Heart rate 52 /min [facility] [place] Phone: 03-30-2021 14:30-0400 Respiratory rate 18 /min [facility] [place] Phone: 03-30-2021 14:30-0400 SaO2% (BldA) [Mass fraction] 100 % [facility] [place] Phone: 03-30-2021 14:30-0400 Systolic blood pressure 123 mm[Hg] [facility] [place] Phone: 03-30-2021 13:00-0400 Body mass index (BMI) [Ratio] 30.02 kg/m2 [facility] [place] Phone: 03-30-2021 13:00-0400 Body temperature 97.9 [degF] [facility] [place] Phone: 03-30-2021 13:00-0400 Body weight 84.37 kg [facility] [place] Phone: 03-30-2021 12:05-0400 Diastolic blood pressure 70 mm[Hg] [place] [facility] [place] Phone: 03-30-2021 12:05-0400 Heart rate 74 /min [place] [facility] [place] Phone: 03-30-2021 12:05-0400 Respiratory rate 18 /min [place] [facility] [place] Phone: 03-30-2021 12:05-0400 SaO2% (BldA) [Mass fraction] 100 % [place] [facility] [place] Phone: 03-30-2021 12:05-0400 Systolic blood pressure 103 mm[Hg] [place] [facility] [place] Phone: 03-29-2021 21:17-0400 Diastolic blood pressure 81 mm[Hg] [facility] [place] Phone: 03-29-2021 21:17-0400 Heart rate 59 /min [facility] [place] Phone: 03-29-2021 21:17-0400 Respiratory rate 18 /min [facility] [place] Phone: 03-29-2021 21:17-0400 SaO2% (BldA) [Mass fraction] 100 % [facility] [place] Phone: 03-29-2021 21:17-0400 Systolic blood pressure 118 mm[Hg] [facility] [place] Phone: 03-29-2021 18:42-0400 Body height 167.6 cm [facility] [place] Phone: 03-29-2021 18:42-0400 Body mass index (BMI) [Ratio] 30.02 kg/m2 [facility] [place] Phone: 03-29-2021 18:42-0400 Body temperature 98.4 [degF] [facility] Work Phone: 03-29-2021 18:42-0400 Body weight 84.37 kg [facility] Work Phone: 03-24-2021 02:31-0400 Diastolic blood pressure 75 mm[Hg] Viral Amado Other Phone: [facility] 03-24-2021 02:31-0400 Heart rate 75 /min Viral Aneudy Other Phone: [facility] 03-24-2021 02:31-0400 Respiratory rate 18 /min Viral Amado Other Phone: [facility] 03-24-2021 02:31-0400 SaO2% (BldA) [Mass fraction] 98 % Viral Amado Other Phone: [facility] 03-24-2021 02:31-0400 Systolic blood pressure 138 mm[Hg] Viral Aneudy Other Phone: [facility] 03-23-2021 15:49-0400 Body height 167.64 cm Viral Amado Work Phone: [facility] Work Phone: 03-23-2021 15:49-0400 Body mass index (BMI) [Ratio] 30.34 kg/m2 Viral Amado Work Phone: [facility]owppfikb[facility] Work Phone: 03-23-2021 15:49-0400 Body surface area Derived from formula 1.95 m2 Viral Amado Work Phone: VG[facility]Isxnapnuyy[facility] Work Phone: 03-23-2021 15:49-0400 Body weight 85.28 kg Viral Amado Work Phone: HZ-Nlhagcusjs-Gdjim [facility] Work Phone: 03-23-2021 15:49-0400 Diastolic blood pressure 92 mm[Hg] Viral Amado Work Phone: XS-Hvkvdtdygn-Fmdbo [facility] Work Phone: 03-23-2021 15:49-0400 Heart rate 90 /min Viral Amado Work Phone: TG-Njsexbxdyf-Czsew [facility] Work Phone: 03-23-2021 15:49-0400 SaO2% (BldA) [Mass fraction] 98 % Viral Amado Work Phone: NI-Hwoliilxvf-Nzdic [facility] Work Phone: 03-23-2021 15:49-0400 Systolic blood pressure 140 mm[Hg] Viral Amado Work Phone: RJ-Wojumvjqat-Aeokh [facility]ne [facility] Work Phone: 03-22-2021 04:58-0400 Body mass index (BMI) [Ratio] 32.2 kg/m2 MD Jax Casiano MD [facility] 03-22-2021 04:58-0400 Body weight 90.5 kg MD Jax Casiano MD [facility] 03-18-2021 16:28-0400 Body mass index (BMI) [Ratio] 30.03 kg/m2 MD Jean-Paul Ascencio MD [facility] 03-18-2021 16:28-0400 Body weight 84.4 kg MD Jean-Paul Ascencio MD [facility] 03-15-2021 14:42-0400 Body mass index (BMI) [Ratio] 29.86 kg/m2 Viral Willett Aneudy Work Phone: [facility] [employer] Work Phone: 03-15-2021 14:42-0400 Body surface area Derived from formula 1.93 m2 Viral Amado Work Phone: [facility] [email or web address] Work Phone: 03-15-2021 14:42-0400 Body weight 83.92 kg Viral Amado Work Phone: [facility] [email or web address] Work Phone: 03-15-2021 14:42-0400 Diastolic blood pressure 74 mm[Hg] Viral Amado Work Phone: [facility] [email or web address] Work Phone: 03-15-2021 14:42-0400 Heart rate 89 /min Viral Amado Work Phone: [facility] [email or web address] Work Phone: 03-15-2021 14:42-0400 Systolic blood pressure 121 mm[Hg] Viral Amado Work Phone: [facility] [email or web address] Work Phone: 03-15-2021 02:09-0400 Diastolic blood pressure 90 mm[Hg] No Pcp Required [facility] 03-15-2021 02:09-0400 Heart rate 67 /min No Pcp Required [facility] 03-15-2021 02:09-0400 Respiratory rate 18 /min No Pcp Required [facility] 03-15-2021 02:09-0400 SaO2% (BldA) [Mass fraction] 98 % No Pcp Required [facility] 03-15-2021 02:09-0400 Systolic blood pressure 132 mm[Hg] No Pcp Required [facility] 03-02-2021 16:00-0400 Diastolic blood pressure 68 mm[Hg] Viral Amado Other Phone: [facility] 03-02-2021 16:00-0400 Heart rate 74 /min Viral Aneudy Other Phone: [facility] 03-02-2021 16:00-0400 Respiratory rate 14 /min Viral Amado Other Phone: [facility] 03-02-2021 16:00-0400 SaO2% (BldA) [Mass fraction] 100 % Viral Amado Other Phone: [facility] 03-02-2021 16:00-0400 Systolic blood pressure 102 mm[Hg] Viral Amado Other Phone: [facility] 03-02-2021 09:29-0400 Body height 172.7 cm Viral Amado Other Phone: [facility] 03-02-2021 09:29-0400 Body temperature 98.06 [degF] Viral Amado Other Phone: [facility] 03-02-2021 09:29-0400 Body weight 84.5 kg Viral Amado Other Phone: [facility] 02-28-2021 12:56-0400 Body height 172.7 cm Pcp Unknown [facility] 02-28-2021 12:56-0400 Body temperature 97.16 [degF] Pcp Unknown [facility] 02-28-2021 12:56-0400 Body weight 79 kg Pcp Unknown [facility] 02-28-2021 12:56-0400 Diastolic blood pressure 82 mm[Hg] Pcp Unknown [facility] 02-28-2021 12:56-0400 Heart rate 64 /min Pcp Unknown [facility] 02-28-2021 12:56-0400 Respiratory rate 17 /min Pcp Unknown [facility] 02-28-2021 12:56-0400 SaO2% (BldA) [Mass fraction] 98 % Pcp Unknown [facility] 02-28-2021 12:56-0400 Systolic blood pressure 134 mm[Hg] Pcp Unknown [facility] 02-27-2021 12:45-0400 Diastolic blood pressure 88 mm[Hg] Pcp Unknown [facility] 02-27-2021 12:45-0400 Heart rate 64 /min Pcp Unknown [facility] 02-27-2021 12:45-0400 Respiratory rate 17 /min Pcp Unknown [facility] 02-27-2021 12:45-0400 SaO2% (BldA) [Mass fraction] 100 % Pcp Unknown [facility] 02-27-2021 12:45-0400 Systolic blood pressure 120 mm[Hg] Pcp Unknown [facility] 02-27-2021 09:24-0400 Body height 167.6 cm Pcp Unknown [facility] 02-27-2021 09:24-0400 Body temperature 97.52 [degF] Pcp Unknown [facility] 02-27-2021 09:24-0400 Body weight 84.4 kg Pcp Unknown [facility] 02-27-2021 02:19-0400 Body mass index (BMI) [Ratio] 30.1 kg/m2 MD Josh Darnell MD [facility] 02-27-2021 02:19-0400 Body weight 84.6 kg MD Josh Darnell MD [facility] 02-26-2021 18:33-0400 Body mass index (BMI) [Ratio] 30 kg/m2 MD Roberth Ingram MD [facility] 02-26-2021 18:33-0400 Body weight 84.5 kg MD Roberth Ingram MD [facility] 02-23-2021 15:17-0400 Diastolic blood pressure 61 mm[Hg] Pcp Unknown [facility] 02-23-2021 15:17-0400 Heart rate 60 /min Pcp Unknown [facility] 02-23-2021 15:17-0400 Respiratory rate 16 /min Pcp Unknown [facility] 02-23-2021 15:17-0400 SaO2% (BldA) [Mass fraction] 99 % Pcp Unknown [facility] 02-23-2021 15:17-0400 Systolic blood pressure 108 mm[Hg] Pcp Unknown [facility] 02-23-2021 14:00-0400 Body height 167.6 cm Pcp Unknown [facility] 02-23-2021 14:00-0400 Body temperature 97.34 [degF] Pcp Unknown [facility] 02-23-2021 14:00-0400 Body weight 84.1 kg Pcp Unknown [facility] 02-22-2021 14:10-0400 Body height 167.64 cm Referring Provider Unknown [facility] Work Phone: 02-22-2021 14:10-0400 Body mass index (BMI) [Ratio] 30.02 kg/m2 Referring Provider Unknown [facility] Work Phone: 02-22-2021 14:10-0400 Body surface area Derived from formula 1.94 m2 Referring Provider Unknown [facility] Work Phone: 02-22-2021 14:10-0400 Body temperature 97.3 [degF] Referring Provider Unknown [facility] Work Phone: 02-22-2021 14:10-0400 Body weight 84.37 kg Referring Provider Unknown [facility] Work Phone: 02-22-2021 14:10-0400 Diastolic blood pressure 69 mm[Hg] Referring Provider Unknown [facility] Work Phone: 02-22-2021 14:10-0400 Heart rate 102 /min Referring Provider Unknown [facility] Work Phone: 02-22-2021 14:10-0400 Respiratory rate 18 /min Referring Provider Unknown [facility] Work Phone: 02-22-2021 14:10-0400 SaO2% (BldA) [Mass fraction] 98 % Referring Provider Unknown [facility] Work Phone: 02-22-2021 14:10-0400 Systolic blood pressure 101 mm[Hg] Referring Provider Unknown [facility] Work Phone: 02-22-2021 14:10-0400 3 1 Referring Provider Unknown [facility] Work Phone: Comment on above: [facility] 02-19-2021 12:42-0400 Body mass index (BMI) [Ratio] 35.2 kg/m2 DO Catalino [employer] DO [facility] 02-19-2021 12:42-0400 Body weight 87.5 kg DO Catalino [employer] DO [facility] 02-19-2021 02:39-0400 Body mass index (BMI) [Ratio] 31.1 kg/m2 MD Josh Darnell MD [facility] 02-19-2021 02:39-0400 Body weight 87.5 kg MD Josh Darnell MD [facility] 02-18-2021 19:31-0400 Diastolic blood pressure 56 mm[Hg] Pcp Unknown [facility] 02-18-2021 19:31-0400 Heart rate 82 /min Pcp Unknown [facility] 02-18-2021 19:31-0400 Respiratory rate 20 /min Pcp Unknown [facility] 02-18-2021 19:31-0400 SaO2% (BldA) [Mass fraction] 98 % Pcp Unknown [facility] 02-18-2021 19:31-0400 Systolic blood pressure 107 mm[Hg] Pcp Unknown [facility] 02-18-2021 17:48-0400 Body height 167.6 cm Pcp Unknown [facility] 02-18-2021 17:48-0400 Body temperature 98.06 [degF] Pcp Unknown [facility] 02-18-2021 17:48-0400 Body weight 84 kg Pcp Unknown [facility] 02-15-2021 15:07-0400 Diastolic blood pressure 63 mm[Hg] Pcp Unknown [facility] 02-15-2021 15:07-0400 Heart rate 85 /min Pcp Unknown [facility] 02-15-2021 15:07-0400 Respiratory rate 18 /min Pcp Unknown [facility] 02-15-2021 15:07-0400 SaO2% (BldA) [Mass fraction] 99 % Pcp Unknown [facility] 02-15-2021 15:07-0400 Systolic blood pressure 136 mm[Hg] Pcp Unknown [facility] 02-15-2021 13:25-0400 Body height 154.9 cm Pcp Unknown [facility] 02-15-2021 13:25-0400 Body temperature 97.7 [degF] Pcp Unknown [facility] 02-15-2021 13:25-0400 Body weight 81 kg Pcp Unknown [facility] 02-15-2021 09:33-0400 Body mass index (BMI) [Ratio] 29.1 kg/m2 MD Melvi Schroeder MD [facility] 02-15-2021 09:33-0400 Body weight 87 kg MD Melvi Schroeder MD [facility] 02-14-2021 20:06-0400 Body mass index (BMI) [Ratio] 29.1 kg/m2 MD Roberth Ingram MD [facility] 02-14-2021 20:06-0400 Body weight 87.1 kg MD Roberth Ingram MD [facility] 02-14-2021 01:11-0400 Diastolic blood pressure 65 mm[Hg] Pcp Unknown [facility] 02-14-2021 01:11-0400 Heart rate 76 /min Pcp Unknown [facility] 02-14-2021 01:11-0400 Respiratory rate 18 /min Pcp Unknown [facility] 02-14-2021 01:11-0400 SaO2% (BldA) [Mass fraction] 98 % Pcp Unknown [facility] 02-14-2021 01:11-0400 Systolic blood pressure 115 mm[Hg] Pcp Unknown [facility] 02-13-2021 21:53-0400 Body temperature 96.08 [degF] Pcp Unknown [facility] 02-08-2021 17:18-0400 Body temperature 97.7 [degF] No Pcp Required [facility] Other Phone (unformatted): [phone] 02-08-2021 17:18-0400 Diastolic blood pressure 67 mm[Hg] No Pcp Required [facility] Other Phone (unformatted): [phone] 02-08-2021 17:18-0400 Heart rate 81 /min No Pcp Required [facility] Other Phone (unformatted): [phone] 02-08-2021 17:18-0400 Respiratory rate 18 /min No Pcp Required [facility] Other Phone (unformatted): [phone] 02-08-2021 17:18-0400 SaO2% (BldA) [Mass fraction] 98 % No Pcp Required [facility] Other Phone (unformatted): [phone] 02-08-2021 17:18-0400 Systolic blood pressure 149 mm[Hg] No Pcp Required [facility] Other Phone (unformatted): [phone] 02-08-2021 13:48-0400 Body height 165.1 cm No Pcp Required [facility] Other Phone (unformatted): [phone] 02-08-2021 13:48-0400 Body weight 83.6 kg No Pcp Required [facility] Other Phone (unformatted): [phone] 02-05-2021 13:36-0400 Body height 167.6 cm No Pcp Required [facility] 02-05-2021 13:36-0400 Body temperature 96.08 [degF] No Pcp Required [facility] 02-05-2021 13:36-0400 Body weight 86.3 kg No Pcp Required [facility] 02-05-2021 13:36-0400 Diastolic blood pressure 78 mm[Hg] No Pcp Required [facility] 02-05-2021 13:36-0400 Heart rate 98 /min No Pcp Required [facility] 02-05-2021 13:36-0400 Respiratory rate 20 /min No Pcp Required [facility] 02-05-2021 13:36-0400 SaO2% (BldA) [Mass fraction] 100 % No Pcp Required [facility] 02-05-2021 13:36-0400 Systolic blood pressure 135 mm[Hg] No Pcp Required [facility] 02-03-2021 17:29-0400 Body temperature 96.98 [degF] No Pcp Required [facility] 02-03-2021 17:29-0400 Diastolic blood pressure 84 mm[Hg] No Pcp Required [facility] 02-03-2021 17:29-0400 Heart rate 67 /min No Pcp Required [facility] 02-03-2021 17:29-0400 Respiratory rate 18 /min No Pcp Required [facility] 02-03-2021 17:29-0400 SaO2% (BldA) [Mass fraction] 99 % No Pcp Required [facility] 02-03-2021 17:29-0400 Systolic blood pressure 126 mm[Hg] No Pcp Required [facility] 02-03-2021 16:31-0400 Body height 167.6 cm No Pcp Required [facility] 02-03-2021 16:31-0400 Body weight 86.3 kg No Pcp Required [facility] 02-03-2021 08:03-0400 Body temperature 97.88 [degF] No Pcp Required [facility] 02-03-2021 08:03-0400 Diastolic blood pressure 79 mm[Hg] No Pcp Required [facility] 02-03-2021 08:03-0400 Heart rate 56 /min No Pcp Required [facility] 02-03-2021 08:03-0400 Respiratory rate 18 /min No Pcp Required [facility] 02-03-2021 08:03-0400 SaO2% (BldA) [Mass fraction] 94 % No Pcp Required [facility] 02-03-2021 08:03-0400 Systolic blood pressure 115 mm[Hg] No Pcp Required [facility] 02-03-2021 04:56-0400 Body height 167.6 cm No Pcp Required [facility] 02-03-2021 04:56-0400 Body weight 86.2 kg No Pcp Required [facility] 02-03-2021 04:01-0400 Body temperature 97.88 [degF] No Pcp Required [facility] 02-03-2021 04:01-0400 Diastolic blood pressure 81 mm[Hg] No Pcp Required [facility] 02-03-2021 04:01-0400 Heart rate 73 /min No Pcp Required [facility] 02-03-2021 04:01-0400 Respiratory rate 15 /min No Pcp Required [facility] 02-03-2021 04:01-0400 SaO2% (BldA) [Mass fraction] 97 % No Pcp Required [facility] 02-03-2021 04:01-0400 Systolic blood pressure 101 mm[Hg] No Pcp Required [facility] 02-02-2021 03:00-0400 Body temperature 97.52 [degF] No Pcp Required [facility] 02-02-2021 03:00-0400 Diastolic blood pressure 85 mm[Hg] No Pcp Required [facility] 02-02-2021 03:00-0400 Heart rate 77 /min No Pcp Required [facility] 02-02-2021 03:00-0400 Respiratory rate 16 /min No Pcp Required [facility] 02-02-2021 03:00-0400 SaO2% (BldA) [Mass fraction] 98 % No Pcp Required [facility] 02-02-2021 03:00-0400 Systolic blood pressure 118 mm[Hg] No Pcp Required [facility] 01-30-2021 02:43-0400 Diastolic blood pressure 83 mm[Hg] No Pcp Required [facility] 01-30-2021 02:43-0400 Heart rate 59 /min No Pcp Required [facility] 01-30-2021 02:43-0400 Respiratory rate 16 /min No Pcp Required [facility] 01-30-2021 02:43-0400 SaO2% (BldA) [Mass fraction] 99 % No Pcp Required [facility] 01-30-2021 02:43-0400 Systolic blood pressure 139 mm[Hg] No Pcp Required [facility] 01-17-2020 05:38-0400 Pulse Oximetry 98 % [facility] 01-17-2020 02:44-0400 BP Diastolic 79 mm[Hg] [facility] 01-17-2020 02:44-0400 BP Systolic 122 mm[Hg] [facility] 01-17-2020 00:07-0400 BMI (Body Mass Index) 31.47 kg/m2 [facility] 01-17-2020 00:07-0400 Body Temperature 98.2 [degF] [facility] 01-17-2020 00:07-0400 Body weight 88.45 kg [facility] 01-17-2020 00:07-0400 Height 167.6 cm [facility] 01-17-2020 00:07-0400 Pulse (Heart Rate) 74 /min [facility] 01-17-2020 00:07-0400 Respiratory Rate 18 /min [facility] 01-14-2020 18:05-0400 BP Diastolic 86 mm[Hg] [facility] [place] 01-14-2020 18:05-0400 BP Systolic 135 mm[Hg] [facility] [place] 01-14-2020 18:05-0400 Pulse (Heart Rate) 72 /min [facility], [place] 01-14-2020 18:05-0400 Pulse [facility]ximetry 100 % [facility] [place] 01-14-2020 18:05-0400 Respiratory Rate 20 /min [facility] 01-14-2020 16:36-0400 BMI (Body Mass Index) 31.47 kg/m2 [facility] 01-14-2020 16:36-0400 Body weight 88.45 kg [facility] [place] 01-14-2020 16:36-0400 Height 167.6 cm [facility] [place] 01-14-2020 16:30-0400 Body Temperature 99.1 [degF] [facility] [place] [place] 12-15-2019 07:26-0400 BP Diastolic 83 mm[Hg] Howard Ayon [facility] , [place] 12-15-2019 07:26-0400 BP Systolic 121 mm[Hg] Howard Ayon [facility] , [place] 12-15-2019 07:26-0400 Pulse (Heart Rate) 83 /min Howard Ayon [facility] 12-15-2019 07:26-0400 Pulse Oximetry 100 % Howard Ayon [facility] , [place] 12-15-2019 07:26-0400 Respiratory Rate 12 /min Howard Ayon [facility], [place] 12-15-2019 05:34-0400 Body Temperature 98.1 [degF] Howard Ayon [facility] 12-15-2019 05:33-0400 BMI (Body Mass Index) 32.28 kg/m2 Howard Ayon [facility] 12-15-2019 05:33-0400 Body weight 90.72 kg Howard Ayon [facility] , [place] 12-15-2019 05:33-0400 Height 167.6 cm Howard Ayon [facility] , [place] 12-13-2019 06:33-0400 BP Diastolic 96 mm[Hg] Branden [facility] , [place] 12-13-2019 06:33-0400 BP Systolic 129 mm[Hg] [facility] [place] 12-13-2019 06:20-0400 Pulse (Heart Rate) 69 /min [facility] [place] 12-13-2019 06:20-0400 Pulse Oximetry 99 % Branden [facility] , [place] 12-13-2019 06:20-0400 Respiratory Rate 17 /min [facility] 12-13-2019 04:52-0400 BMI (Body Mass Index) 32.28 kg/m2 [facility] [place] 12-13-2019 04:52-0400 Body Temperature 98.8 [degF] [facility], [place] 12-13-2019 04:52-0400 Body weight 90.72 kg Branden [place], [place] 12-13-2019 04:52-0400 Height 167.6 cm Branden [facility] , [place] 05-18-2019 22:48-0400 BP Diastolic 67 mm[Hg] [facility], [place] 05-18-2019 22:48-0400 BP Systolic 121 mm[Hg] [facility], [place] 05-18-2019 22:48-0400 Pulse (Heart Rate) 83 /min [facility], [place] 05-18-2019 22:48-0400 Pulse Oximetry 100 % [facility], [place] 05-18-2019 22:48-0400 Respiratory Rate 20 /min [place] 05-18-2019 20:51-0400 BMI (Body Mass Index) 32.28 kg/m2 [facility], [place] 05-18-2019 20:51-0400 Body Temperature 98.8 [degF] [place] 05-18-2019 20:51-0400 Body weight 90.72 kg [facility], [place] 05-18-2019 20:51-0400 Height 167.6 cm [place] Encounters Encounter Date Encounter Type Care Provider Facility Start: 07-25-2024 End: 07-25-2024 Emergency department patient visit NO PCP NO PCP [facility] Start: 2024 End: 2024 ambulatory Tima Boyeri Facility:[facility] Start: 2024 End: 2024 Patient encounter procedure Alfredraisa Edwards [facility] Start: 07-19-2024 End: 2024 Emergency department patient visit AGUSTINA SEGAL [facility] Start: 07-17-2024 End: 07-18-2024 Emergency department patient visit Neil Alexander [facility] Start: 07-17-2024 ambulatory Alfred Jerry Guru ty:[facility] Start: 07-16-2024 End: 07-16-2024 Emergency department patient visit Neil Alexander [facility] Start: 07-16-2024 End: 07-16-2024 Emergency department patient visit DO Gustavo Mcclelland Work Phone: [facility] Work Phone: Start: 07-15-2024 End: 07-15-2024 Emergency department patient visit DO Gustavo Mcclelland Work Phone: [facility] Work Phone: Start: 07-15-2024 End: 07-15-2024 ambulatory DO Gustavo Mcclelland Work Phone: [facility] Work Phone: Start: 07-15-2024 End: 07-15-2024 Patient encounter procedure DO Gustavo Mcclelland Work Phone: [facility] Work Phone: Start: 07-14-2024 End: 07-14-2024 Emergency department patient visit DO Gustavo Mcclelland Work Phone: [facility] Work Phone: Start: 07-11-2024 End: 07-11-2024 Emergency department patient visit Capo Bartlettrick [facility] Start: 07-09-2024 End: 07-09-2024 Emergency department patient visit Capo Bartlettrick [facility] Start: 07-04-2024 End: 07-04-2024 Emergency department patient visit [facility] Start: 06-07-2023 End: 06-07-2023 Emergency department patient visit Neil Pete [facility] Bed 01 Start: 06-06-2023 End: 06-06-2023 Emergency department patient visit TYREE MACKENZIE [facility] Bed 06 Start: 06-04-2023 End: 06-04-2023 Emergency department patient visit Stefanie Reyes [place] [facility] Bed 09 Start: 05-30-2023 End: 05-30-2023 Emergency department patient visit UNKNOWN PROVIDER Facility:[facility] Start: 05-30-2023 End: 05-30-2023 Emergency department patient visit Riley Crawford MD Work Phone: [facility] Comment on above: Dizziness (Dizziness upon standing) Start: 05-29-2023 End: 05-29-2023 Emergency department patient visit CARLOS MAO Facility:[facility] Start: 05-29-2023 Emergency department patient visit VIRAL AMADO Facility:[facility] Start: 05-29-2023 End: 05-29-2023 Emergency department patient visit VIRAL AMADO Facility:[facility] Start: 05-20-2023 Emergency department patient visit VIRAL AMADO Facility:[facility] Start: 05-18-2023 End: 05-18-2023 Emergency department patient visit VIRAL AMADO Facility:[facility] Start: 05-11-2023 End: 05-11-2023 ambulatory ANNE INMAN Facility:UNKNOWN Start: 05-11-2023 End: 05-11-2023 Emergency department patient visit Kristen Bowman MD Work Phone: [facility] Comment on above: Other chest pain; Palpitations; Decreased white blood cell count, unspecified; Thrombocytopenia, unspecified (CMS/HCC); Disorder of kidney and ureter, unspecified; Old myocardial infarction; Homelessness unspecified; Personal history of other diseases of the circulatory system Start: 05-05-2023 End: 05-05-2023 Emergency department patient visit [facility] Work Phone: Start: 05-05-2023 End: 05-05-2023 Emergency department patient visit [facility] Work Phone: Start: 04-21-2023 End: 04-21-2023 Emergency department patient visit LILY MERCADO [facility] Start: 04-20-2023 End: 04-20-2023 Emergency department patient visit ROBINA Kline TO [facility] Start: 04-20-2023 End: 04-20-2023 Emergency department patient visit ROBINA Kline TO [facility] Start: 04-14-2023 End: 04-15-2023 Emergency department patient visit MATTY CLEMENTS [facility] Start: 02-04-2023 End: 02-04-2023 Emergency department patient visit LEONIDES Alfaro [facility] Start: 02-03-2023 End: 02-03-2023 Emergency department patient visit [facility] Start: 02-02-2023 End: 02-02-2023 Emergency department patient visit KENN RODRIGUEZ [facility] Start: 02-02-2023 End: 02-02-2023 Emergency department patient visit Kenn Rodriguez MD Work Phone: [facility] Comment on above: Essential hypertensi on (Primary Dx) Start: 02-01-2023 End: 02-01-2023 Emergency department patient visit LILA VERA [facility] Start: 02-01-2023 End: 02-01-2023 Emergency department patient visit Lila Vera DO Work Phone: [facility] Comment on above: Generalized abdomina l pain (Primary Dx); Ascending aortic aneurysm, unspecified whether ruptured (HCC); Abnormal CT scan Start: 02-01-2023 End: 02-01-2023 Emergency department patient visit SUSU COLLINS [facility] Start: 02-01-2023 End: 02-01-2023 Emergency department patient visit Susu Collins MD Work Phone: [facility] Comment on above: Acute alcoholic into xication without complication (HCC) (Primary Dx); Hypotension, unspecified hypotension type; Dehydration; Hypokalemia Start: 01-28-2023 End: 01-29-2023 Emergency department patient visit Triston Orozco [facility] Start: 01-22-2023 End: 01-23-2023 ambulatory KAY Vinicio DESOUZA Facility:UNKNOWN Start: 01-22-2023 Emergency department patient visit VIRAL AMADO Facility:[facility] Start: 01-14-2023 End: 01-14-2023 Emergency department patient visit NADIRA HAZEL MD Facility:[id number] Start: 01-26-2022 Chart Copy Viral Amado Work Phone: MW-Ydutrnguhw-DFIV [place] [address] [place] Work Phone: Start: 12-22-2021 Refill Thalia Mosley MD Work Phone: Cardiology Start: 12-01-2021 Chart Copy Viral Amado Work Phone: WT-Izluyhhvic-XQFS [place] [address] [place] Work Phone: Start: 11-23-2021 Patient encounter procedure Viral Amado Work Phone: DS-Vqqdjhpzlr-QBTR [place] [address] [place] Work Phone: Start: 11-15-2021 Patient encounter procedure Viral Amado Work Phone: ON-Kdtezuruyk-TQDQ [place] [address] [place] Work Phone: Start: 11-06-2021 Patient encounter procedure Viral Amado Work Phone: AG-Awpxitzfnl-SRYD [place] [address] [place] Work Phone: Start: 10-27-2021 Chart Update Viral Amado Work Phone: GD-Waffwaiafo-ZWBJ [address] [address] [place] Work Phone: Start: 10-02-2021 Rx Change Viral Aamdo Work Phone: JE-Noprmnvpxg-Qqzobk Work Phone: Start: 09-29-2021 AUDIT Viral Amado Work Phone: [address] [place] [address] Work Phone: Start: 09-08-2021 Patient encounter procedure Viral Amado Work Phone: UO-Zpqguwdcbs-QEHQ [place] [address] [place] Work Phone: Start: 09-05-2021 End: 09-05-2021 Emergency department patient visit Cheo Simeon [facility] Adult ED Green 19 Start: 08-31-2021 Patient encounter procedure Viral Amaod Work Phone: PO-Lxrajgaxcb-DFNU [place] [address] [place] Work Phone: Start: 08-30-2021 Chart Copy Viral Amado Work Phone: [facility] [address] [place] Work Phone: Start: 08-30-2021 Office outpatient vi sit 10 minutes Viral Amado Work Phone: [facility] [address] Work Phone: Start: 08-30-2021 LOUIE, Provider : Tay Lott, Status: Pen, Time: 1:00 PM Viral Amado Work Phone: CF-Uynteqvuml-Fdpomd Work Phone: Start: 08-28-2021 Office outpatient vi sit 40 minutes Viral Amado Work Phone: GB-Cnxjivknik-Yjflu HVI Work Phone: Start: 08-28-2021 Patient encounter procedure Viral Amado Work Phone: SQ-Sghkcwgkjr-Chjeal Work Phone: Start: 08-23-2021 End: 08-24-2021 Emergency department patient visit Nabeelmigue Kelly [facility] Adult ED Waiting Start: 08-23-2021 Patient encounter procedure Lily Carvajal Cardiology Joan Start: 08-20-2021 End: 08-20-2021 Emergency department patient visit Amanda Henderson ED Bed 10 Flex Start: 08-19-2021 End: 08-20-2021 Emergency department patient visit Daniela Church [place] [facility] Waiting Room Start: 08-19-2021 End: 08-19-2021 [facility] [place] [facility] Start: 08-12-2021 End: 08-13-2021 Emergency department patient visit Triston Orozco [facility] Adult ED Blue 34 Start: 08-11-2021 AUDIT Viral Amado Work Phone: GF-Lxsyjxngusqumpdc-Gasd [facility] DHI Work Phone: Start: 08-10-2021 Chart Update Viral Amado Work Phone: [facility] [address] Work Phone: Start: 08-10-2021 End: 08-10-2021 Emergency department patient visit Dejah Lepe [place] [facility] Waiting Room Start: 08-02-2021 CASSIUS, Provider : TRAVIS FELTON, Status: Pen, Time: 11:00 AM Viral Amado Work Phone: OF-Wgswbnpgiwczgeme-Epop ell 6 [facility] Work Phone: Start: 08-02-2021 Rx Renewal Viral Amado Work Phone: [address] [place] [address] Work Phone: Start: 08-01-2021 COLON, Provider: Lynette Saldaña, Status: Pen, Time: 3:00 PM Viral Amado Work Phone: XI-Jevtqhycjgpdqclv-Gapv ell 6 [facility] Work Phone: Start: 07-31-2021 AUDIT Viral Amado Work Phone: LN-Qojsvkshzlyojjrj-Zdzg ell 6 [facility] Work Phone: Start: 07-24-2021 AUDIT Viral Amado Work Phone: JV-Ghipopabhh-Swlooim [facility] Work Phone: Start: 07-18-2021 Patient encounter procedure Viral Amado Work Phone: GC-Wntotgzkzd-Vbngjkz [address] [facility] Work Phone: Start: 07-11-2021 NPV, Provider: Bao Mares, Status: Pen, Time: 1:40 PM Viral Willett Aneudy Work Phone: [facility] Work Phone: Start: 07-10-2021 Office outpatient vi sit 25 minutes Viral S Aneudy Work Phone: [facility] Work Phone: Start: 07-07-2021 AUDIT Viral Willett Aneudy Work Phone: NR-Tywtvtmoix-Aiuvzbh [address] [facility] Work Phone: Start: 07-06-2021 Chart Copy Viral Willett Aneudy Work Phone: MM-Thbbricevr-Qjolmi 1162 Work Phone: Start: 07-05-2021 Patient encounter procedure Viral Amado Other Phone: [facility] Start: 07-05-2021 SURGCMC, Provider: Tay Lott, Status: Pen, Time: 7:00 AM Viral Willett Aneudy Work Phone: [facility] [address] Work Phone: Start: 07-05-2021 End: 07-05-2021 Evaluation and management of inpatient Elgin Bisi Lambert Valentine Inpt 1 S Rm 126 Bed A Start: 07-04-2021 End: 07-05-2021 Emergency department patient visit Nubia Young [place] [facility] Bed 12 Start: 07-03-2021 AUDIT Viral Willett Aneudy Work Phone: [facility] [address] Work Phone: Start: 06-28-2021 Office outpatient vi sit 40 minutes Viral S Aneudy Work Phone: [facility] [address] Work Phone: Start: 06-28-2021 Patient encounter procedure Latha Messina [facility] [place] Start: 06-26-2021 End: 06-27-2021 Emergency department patient visit Stacia Bloom [facility] Adult ED Gold 16 Start: 06-23-2021 FUVHOSP, Provider: Viral Amado, Status: Pen, Time: 11:15 AM Viral Amado Work Phone: [facility] Work Phone: Start: 06-23-2021 Office outpatient vi sit 25 minutes Viral Amado Work Phone: [facility] [facility] [address] Work Phone: Start: 06-22-2021 AUDIT Viral Amado Work Phone: [facility] [facility] [address] Work Phone: Start: 06-21-2021 AUDIT Viral Amado Work Phone: VI-Kammhofjzhzxfxpi-Peai ell 6 [facility] Work Phone: Start: 06-21-2021 EGD, Provider: Jaylin Briones, Status: Pen, Time: 8:00 AM Viral Amado Work Phone: [facility] Work Phone: Start: 06-20-2021 Office outpatient ne w 45 minutes Viral Amado Work Phone: [facility] Work Phone: Start: 06-15-2021 AUDIT Viral Amado Work Phone: [facility] [facility] [place] [address] Work Phone: Start: 06-14-2021 End: 06-14-2021 Emergency department patient visit Jacob De La Cruz [place] ED Bed 12 Start: 06-13-2021 End: 06-13-2021 Emergency department patient visit Jacob De La Cruz [place] ED Bed 02 Start: 06-12-2021 AUDIT Viral Amado Work Phone: [facility] [facility] [address] Work Phone: Start: 06-07-2021 AUDIT Viral Amado Work Phone: Venkates[facility] Prabh[facility]ar - [place] [address] Work Phone: Start: 06-07-2021 End: 06-07-2021 Emergency department patient visit Grupo S[facility]a [place] [facility] Bed 07 Start: 06-04-2021 End: 06-05-2021 Emergency department patient visit NO PCP AA NO PCP [facility] Start: 06-02-2021 End: 06-03-2021 Emergency department patient visit Alaina Maciel [facility] ED Bed 15 Start: 06-02-2021 Patient encounter procedure Viral Amado [facility] Start: 05-31-2021 End: 05-31-2021 Emergency department patient visit Klaudia Mosqueda [facility] G Start: 05-31-2021 End: 05-31-2021 Emergency department patient visit Viral Amado [facility] Wait Start: 05-27-2021 End: 05-28-2021 Emergency department patient visit NO PCP AA NO PCP [facility] Start: 05-27-2021 End: 05-27-2021 Emergency department patient visit Noel Tapiakatelynn [facility] 01 Start: 05-25-2021 End: 05-25-2021 Emergency department patient visit Viral Amado [facility] 01 Start: 05-24-2021 End: 05-25-2021 Emergency department patient visit Elgin Scotts [facility] 13 Start: 05-23-2021 End: 05-23-2021 Emergency department patient visit [facility] Start: 05-11-2021 Office outpatient ne w 30 minutes Viral Amado Work Phone: [facility]-Nuzhat Alvarado MD Practice Work Phone: Start: 05-11-2021 Patient encounter procedure Elizabet Morales [facility] Start: 05-08-2021 End: 05-09-2021 Emergency department patient visit Daniela Church [place] [facility] [place] 01 Start: 04-25-2021 Office outpatient vi sit 25 minutes Viral Amado Work Phone: BY-Pndbmspgobxuziir-Ssyu ell 6 [facility] Work Phone: Start: 04-25-2021 Patient encounter procedure Viral Willett Aneudy Work Phone: TO-Qydhbfrmjaooskrk-Atmf ell 6 DHI Work Phone: Start: 04-21-2021 End: 04-21-2021 Emergency department patient visit Daniela Church [place] ED Bed 04 Start: 04-20-2021 Evaluation and management of inpatient Viral Amado Other Phone: [facility] Preadmit Start: 04-18-2021 End: 04-18-2021 Emergency department patient visit Grupo Lars [place] [facility] 05 Start: 04-15-2021 End: 04-15-2021 Emergency department patient visit Cierra Gimenez [facility] ED Bed 14 Start: 04-13-2021 End: 04-13-2021 Emergency department patient visit Amanda Choudhary [facility] ED Bed HB3 Start: 04-12-2021 End: 04-13-2021 Emergency department patient visit Malou Lomax [facility] ED Bed 01 Start: 04-12-2021 Office outpatient ne w 60 minutes Viral Willett Aneudy Work Phone: [facility] [facility] Work Phone: Start: 04-12-2021 Patient encounter procedure Viral Amado Work Phone: [facility] [facility] Work Phone: Start: 04-08-2021 End: 04-08-2021 Emergency department patient visit Charly Oseguera [facility] Adult ED Gold 11 Start: 04-04-2021 End: 04-04-2021 Emergency department patient visit Liam So [place] [facility] 05 Start: 04-03-2021 End: 04-04-2021 Emergency department patient visit Irving Wills [place] [facility] 09 Start: 03-30-2021 End: 03-30-2021 Emergency department patient visit WILL CARTER [facility] Start: 03-30-2021 End: 03-30-2021 Emergency department patient visit [facility] ED Comment on above: Chest pain, unspecif ied type (Primary Dx) Start: 03-30-2021 End: 04-02-2021 ambulatory [facility] Start: 03-30-2021 End: 04-01-2021 Subsequent hospital visit by physician Rogelio Fluoro Room 1 [facility] Radiology Comment on above: Dysphagia, unspecifi ed type Start: 03-29-2021 End: 03-30-2021 Emergency department patient visit [facility] Start: 03-29-2021 End: 03-29-2021 Emergency department patient visit [facility] ED Comment on above: Atypical chest pain (Primary Dx) Start: 03-29-2021 End: 03-29-2021 Emergency department patient visit [facility] Start: 03-23-2021 End: 03-24-2021 Emergency department patient visit [facility] Emergency 03 Start: 03-23-2021 Office outpatient vi sit 25 minutes Viral Amado Work Phone: AT-Grpardnbhc-Prvtiafx [address] Work Phone: Start: 03-15-2021 Office outpatient ne w 60 minutes Viral Amado Work Phone: [facility] Corporate Work Phone: Start: 03-15-2021 Patient encounter procedure Viral Amado [facility] Medicine [place] Start: 03-14-2021 End: 03-15-2021 Emergency department patient visit Bal Muller [facility] Adult ED Gold 15 Start: 03-14-2021 End: 03-14-2021 Emergency department patient visit No Pcp Required [facility] Adult ED Waiting Start: 03-03-2021 Patient encounter procedure Viral Amado Other Phone: [facility] Preadmit Start: 03-02-2021 End: 03-02-2021 Emergency department patient visit Diannavinicio Monica [place] ED Bed 20 Start: 03-01-2021 Chart Update Referring Prov lior Downey [facility] Work [facility]: Start: 02-28-2021 End: 02-28-2021 Emergency department patient visit Bal Galilea [place] ED Bed 17 Start: 02-27-2021 End: 02-27-2021 Emergency department patient visit Hermes Sexton [place] ED Bed 08 Start: 02-23-2021 End: 02-23-2021 Emergency department patient visit Josh Ennis [facility] Start: 02-22-2021 Office outpatient ne w 45 minutes Referring Provider Unknown [facility] Work Phone: Start: 02-18-2021 End: 02-18-2021 Emergency department patient visit Dana Sol [place] [facility] Bed 03 Start: 02-17-2021 AUDIT Referring Prov ider Unknown ND-Ddshfzwfab-Sfxoyiky [facility] Work Phone: Start: 02-16-2021 AUDIT Referring Prov ider Unknown AZ-Mqasclsbaa-Novgboud [facility] Work Phone: Start: 02-15-2021 Patient encounter procedure Andre Coats [facility] [place] Start: 02-15-2021 Phys/qhp telephone evaluation 21-30 min Referring Provider Unknown [address] - [facility] [address] Work Phone: Start: 02-15-2021 TEJAL, Provider : Andre Coats, Status: Pen, Time: 1:00 PM Referring Provider Unknown GO-Aparqowmiu-Pstdttll [facility] Work Phone: Start: 02-15-2021 End: 02-15-2021 Emergency department patient visit Daniela Church [place] [facility] Bed 11 Start: 02-14-2021 AUDIT Referring Prov ider Unknown CQ-Prpbakiwtv-Jzhxyxmn [facility] Work Phone: Start: 02-13-2021 End: 02-14-2021 Emergency department patient visit Bal Adelina [facility] Start: 02-08-2021 End: 02-08-2021 Emergency department patient visit Rashaun Delgadillo [facility] 16 Other Phone (unformatted): [phone] Start: 02-05-2021 End: 02-05-2021 Emergency department patient visit Keith Arechiga [place] [facility] Bed 07 Start: 02-03-2021 End: 02-03-2021 Emergency department patient visit Dejah Lepe [place] [facility] Bed 03 Start: 02-03-2021 End: 02-03-2021 Emergency department patient visit Lily Wolf [facility] ED Bed 04 A Start: 02-02-2021 End: 02-03-2021 Emergency department patient visit Lily Wolf [facility] ED Bed H03 Start: 02-01-2021 End: 02-02-2021 Emergency department patient visit Stacia Bloom [facility] Adult ED Gold 04 Start: 01-29-2021 End: 01-30-2021 Emergency department patient visit Shawn Flores [place] [facility] Bed 11 Start: 01-16-2020 End: 01-17-2020 Emergency department patient visit Sahil Mooney Anupam Work Phone: [facility] ED Comment on above: Chest pain, unspecif ied type (Primary Dx) Start: 01-15-2020 End: 01-15-2020 Subsequent hospital visit by physician [facility] Comment on above: Suspected COVID-19 v irus infection Start: 01-14-2020 End: 01-14-2020 Emergency department patient visit Brenna Handyitrov Work Phone: [facility] ED Comment on above: Lightheadedness (Екатерина nicole Dx); History of hypertension; Pain, dental Start: 12-15-2019 End: 12-15-2019 Emergency department patient visit Physician No [facility] Start: 12-15-2019 End: 12-15-2019 Emergency department patient visit Howard Ayon Work Phone: [facility] Comment on above: Hypertension, unspec ified type (Primary Dx) Start: 12-13-2019 End: 12-13-2019 Emergency department patient visit Physician No [facility] Start: 12-13-2019 End: 12-13-2019 Emergency department patient visit Branden Moraes Work Phone: [facility] Comment on above: Cough (Primary Dx); Primary hypertension Start: 05-18-2019 End: 05-18-2019 Emergency department patient visit Nessa Green Work Phone: [facility] ED Comment on above: Accelerated hyperten jayy (Primary Dx) Start: 02-25-2018 Emergency department patient visit Facility:[facility] Start: 02-23-2018 [facility]ne [facility] Procedures Date Procedure Procedure Detail Performing Clinician Start: 07-16-2024 CT of chest DO Gustavo Mcclelland Work Phone: Start: 07-16-2024 Plain chest X-ray DO Kit Mcclelland Work Phone: Start: 07-14-2024 Computed tomography of abdomen and pelvis with contrast DO Gustavo Mcclelland Work Phone: Start: 06-07-2023 End: 06-07-2023 EKG impression Neil Agostojannet Start: 06-06-2023 End: 06-06-2023 EKG impression TYREE CAMPUZANO Start: 06-04-2023 End: 06-04-2023 EKG impression Le [place] Reyes Start: 05-30-2023 End: 05-30-2023 Basic metabolic panel calcium total Riley Crawford MD Work Phone: Start: 05-30-2023 Drug screen class list a Riley Crawford MD Work Phone: Start: 05-30-2023 Drug screen quantita tive alcohols Riley Crawford MD Work Phone: Start: 05-30-2023 Urnls dip stick/tabl et rgnt auto w/o microscopy Riley Crawford MD Work Phone: Start: 05-11-2023 Fibrin D-dimer FEU [Mass/volume] in Platelet poor plasma Thalia Roberto LANDSCAPE ENGINEER-[employer]ERER [employer] Work Phone: Start: 05-11-2023 HS TROPONIN T Thalia murdock LANDSCAPE ENGINEER[employer]ER [employer] Work Phone: Start: 05-11-2023 Radiologic exam ches t 2 views Syngo Conversion Start: 05-11-2023 Bacteria identified in Urine by Culture Thalia Roberto LANDSCAPE ENGINEER[employer] Work Phone: Start: 05-11-2023 DRUG SCREEN,URINE Thalia A Nkechi [facility] Work Phone: Start: 05-11-2023 Urinalysis complete W Reflex Culture panel - Urine Thaliasa Vinicio Roberto APRN-[facility] Work Phone: Start: 05-11-2023 Complete blood count with white cell differential, automated Thalia A Nkechi LANDSCAPE ENGINEER-[facility] Work Phone: Start: 05-11-2023 Comprehensive metabo lic panel Thalia A Nkechi LANDSCAPE ENGINE[facility] Work Phone: Start: 05-11-2023 Ethanol [Mass/volume ] in Serum or Plasma Thalia A Nkechi LANDSCAPE ENGINEER-[facility] Work Phone: Start: 05-11-2023 HS TROPONIN T Thalia A Kehinde murdock L[facility]SCAPE [facility] Work Phone: Start: 05-11-2023 Lipase [Enzymatic activity/volume] in Serum or Plasma Thalia A Nkechi LANDSCAPE ENGINEER-[facility] Work Phone: Start: 05-11-2023 Magnesium [Mass/volu me] in Serum or Plasma Thalia A Nkechi L[facility]SCAPE [facility] Work Phone: Start: 05-11-2023 Natriuretic peptide. B prohormone N-Terminal [Mass/volume] in Serum or Plasma Thalia A Nkechi LANDSCAPE ENGINEER-[facility] Work Phone: Start: 05-11-2023 TSH WITH REFLEX TO F REE T4 IF ABNORMAL Thalia A Nkechi [facility] Work Phone: Start: 02-04-2023 Assay of ethanol KIM SILVEIRA Start: 02-04-2023 IP CONSULT TO SOCIAL WORK LEONIDES SILVEIRA Start: 02-04-2023 Radiologic exam ches t single view LEONIDES SILVEIRA Start: 02-04-2023 Blood count complete auto&auto difrntl wbc LEONIDES SILVEIRA Start: 02-04-2023 Drug screen, qualitate/multi LEONIDES SILVEIRA Start: 02-04-2023 Ecg routine ecg w/le ast 12 lds w/i&r LEONIDES SILVEIRA Start: 02-02-2023 Ecg routine ecg w/le ast 12 lds w/i&r LEONIDES SILVEIRA Start: 02-02-2023 Blood count complete auto&auto difrntl wbc LEONIDES SILVEIRA Start: 02-02-2023 Ecg routine ecg w/le ast 12 lds w/i&r Kenn Rodriguez MD Work Phone: Start: 02-02-2023 Basic metabolic pane l calcium total Kenn Rodriguez MD Work Phone: Start: 02-01-2023 IP CONSULT TO SOCIAL WORK SUSU JOSH Start: 02-01-2023 Ct angio abd&plvis c ntrst mtrl w/wo cntrst img SUSU JOSH Start: 02-01-2023 Ct angiography chest w/contrast/noncontrast SUSU JOSH Start: 02-01-2023 Ct angio abd&plvis c ntrst mtrl w/wo cntrst img Lila Vera DO Work Phone: Start: 02-01-2023 Ct angiography chest w/contrast/noncontrast Lila Vera DO Work Phone: Start: 02-01-2023 Ecg routine ecg w/le ast 12 lds w/i&r SUSU JOSH Start: 02-01-2023 Blood count complete auto&auto difrntl wbc SUSU JOSH Start: 02-01-2023 Drug screen, qualitate/multi SUSU JOSH Start: 02-01-2023 Hepatic function panel SUSU JOSH Start: 02-01-2023 Urnls dip stick/tabl et reagent auto microscopy SUSU JOSH Start: 02-01-2023 INSERT PERIPHERAL IV SH JESSE JOSH Start: 02-01-2023 SALINE LOCK IV SUSU S PANGLER Start: 02-01-2023 Ecg routine ecg w/le ast 12 lds w/i&r Lila Vera DO Work Phone: Start: 02-01-2023 Assay of lactate Lila Vera DO Work Phone: Start: 02-01-2023 Basic metabolic 2000 panel - Serum or Plasma Lila Vera DO Work Phone: Start: 02-01-2023 Drug screen, qualitate/multi Lila BalBlake DO Work Phone: Start: 02-01-2023 Hepatic function panel Lila Vera DO Work Phone: Start: 02-01-2023 Urnls dip stick/tabl et reagent auto microscopy Lila BalBlake DO Work Phone: Start: 02-01-2023 Assay of ethanol SUSU COLLINS Start: 02-01-2023 Basic metabolic pane l calcium total SUSU COLLINS Start: 02-01-2023 Assay of ethanol Susu Collins MD Work Phone: Start: 02-01-2023 Basic metabolic pane l calcium total Susu Collins MD Work Phone: Start: 02-01-2023 INSERT PERIPHERAL IV SH JESSE JOSH Start: 02-01-2023 TELEMETRY MONITORING SH JESSE JOSH Start: 02-01-2023 ED NURSING COMMUNICATION SUSU COLLINS Start: 02-01-2023 Ecg routine ecg w/le ast 12 lds w/i&r SUSU COLLINS Start: 02-01-2023 Assay of magnesium Fred Collins MD Work Phone: Start: 02-01-2023 Drug screen, qualitate/multi Susu Collins MD Work Phone: Start: 02-01-2023 Ecg routine ecg w/le ast 12 lds w/i&r Susu Collins MD Work Phone: Start: 01-29-2023 End: 01-29-2023 EKG impression Venessa Mejias Start: 09-05-2021 End: 09-05-2021 EKG impression Cheo Simeon Start: 08-20-2021 End: 08-20-2021 EKG impression Hugodaraisa Tony Start: 08-12-2021 End: 08-12-2021 EKG impression Trice Clark Start: 07-05-2021 Echocardiography Viral Aamdo Work Phone: Start: 07-04-2021 aPTT in Platelet poo r plasma by Coagulation assay Nubia Young Start: 07-04-2021 End: 07-04-2021 EKG impression Nubia Efren Start: 07-04-2021 End: 07-04-2021 EKG impression Nubia Young Start: 06-07-2021 End: 06-07-2021 EKG impression Grupo Sousa Start: 06-02-2021 End: 06-02-2021 EKG impression Mahsa Josselin Start: 06-02-2021 Follow-up visit Start: 05-31-2021 End: 05-31-2021 EKG impression Klaudia Riveratcher Start: 05-24-2021 End: 05-24-2021 EKG impression Elgin Morales Start: 05-08-2021 End: 05-08-2021 EKG impression Arie Nguyen Start: 04-15-2021 End: 04-15-2021 EKG impression Cierra Gimenez Start: 04-13-2021 End: 04-13-2021 EKG impression Amanda Choudhary Start: 04-12-2021 End: 04-12-2021 EKG impression Dana Carpintero-Dayday Start: 04-12-2021 End: 04-12-2021 EKG impression Dana Carpintero-Dayday Start: 03-30-2021 Radiologic exam ches t single view Tasneem Daikelton Story LANDSCAPE ENGINEER - [employer] Work Phone: Start: 03-30-2021 Comprehensive metabo lic panel Tasneem Daikelton Story LANDSCAPE ENGINEER - [employer] Work Phone: Start: 03-30-2021 Radiologic exam esop hagus single contrast study Will Parsona Start: 03-29-2021 Assay of ethanol Inez Valdes PA-C Work Phone: Start: 03-29-2021 Comprehensive metabo lic panel Inez Valdes PA-C Work Phone: Start: 03-29-2021 Drug screen class list a Inez Valdes PA-C Work Phone: Start: 03-24-2021 End: 03-24-2021 EKG impression Cheo Tiwari Start: 03-14-2021 End: 03-14-2021 EKG impression Thang Tellez Start: 02-28-2021 End: 02-28-2021 EKG impression Bal Lomax Start: 02-23-2021 End: 02-23-2021 EKG impression Fernando Forman Start: 02-15-2021 End: 02-15-2021 EKG impression Dejah Lepe Start: 02-14-2021 End: 02-14-2021 EKG impression Bal Rauschgorozina Start: 02-03-2021 End: 02-03-2021 EKG impression Albina Lopez Start: 02-03-2021 End: 02-03-2021 EKG impression Albina Lopez Start: 02-02-2021 End: 02-02-2021 EKG impression Albina Lopez Start: 02-01-2021 End: 02-01-2021 EKG impression Larry Merchant Start: 01-17-2020 Ct angiography chest w/contrast/noncontrast Sahil Bo Work Phone: Start: 01-17-2020 Radiologic exam ches t single view Sahil Bo Work Phone: Start: 01-17-2020 Assay of troponin quantitative Sahil Bo Work Phone: Start: 01-17-2020 Blood count complete auto&auto difrntl wbc Sahil Bo Work Phone: Start: 01-17-2020 Comprehensive metabo lic panel Sahil Bo Work Phone: Start: 01-17-2020 Prothrombin time Sahil Bo Work Phone: Start: 01-17-2020 Thromboplastin time partial plasma/whole blood Sahil Bo Work Phone: Start: 01-14-2020 Urnls dip stick/tabl et rgnt auto w/o microscopy Veselin Sebastian Work Phone: Start: 01-14-2020 Radiologic exam ches t single view Veselin Sebastian Work Phone: Start: 01-14-2020 Assay of troponin quantitative Veselin Sebastian Work Phone: Start: 01-14-2020 Blood count complete auto&auto difrntl wbc Veselin Sebastian Work Phone: Start: 01-14-2020 Comprehensive metabo lic panel Veselin Sebastian Work Phone: Start: 01-14-2020 Fibrin dgradj produc ts d-dimer quantitative Veselin Sebastian Work Phone: Start: 12-15-2019 Ecg routine ecg w/le ast 12 lds w/i&r Physician No Family Start: 12-15-2019 Antibody bordetella Phy sician No Family Start: 12-15-2019 Assay of magnesium Phys ician No Family Start: 12-15-2019 Assay of osmolality blood Physician No Family Start: 12-15-2019 Blood count complete auto&auto difrntl wbc Physician No Family Start: 12-15-2019 Comprehensive metabo lic panel Physician No Family Start: 12-15-2019 Creatinine blood Physic michelle No Family Start: 12-15-2019 Anion gap [Moles/Vol] J krystle Ayon Work Phone: Start: 12-15-2019 Assay of magnesium Howard Ayon Work Phone: Start: 12-15-2019 Assay of osmolality blood Howard Ayon Work Phone: Start: 12-15-2019 Blood count complete auto&auto difrntl wbc Howard Ayon Work Phone: Start: 12-15-2019 Comprehensive metabo lic panel Howard Ayon Work Phone: Start: 12-15-2019 GLOMERULAR FILTRATIO N RATE, ESTIMATED Howard Ayon Work Phone: Start: 12-13-2019 Radiologic exam ches t single view Physician No Family Start: 12-13-2019 Radiologic exam ches t single view Branden Moraes Work Phone: Start: 05-18-2019 Ecg routine ecg w/le ast 12 lds w/i&r Nessa Green Work Phone: Start: 05-18-2019 Assay of troponin quantitative Nessa Green Work Phone: Start: 05-18-2019 BASIC METABOLIC PANE L W/ REFLEX TO MG FOR LOW K Nessa Green Work Phone: Start: 05-18-2019 Blood count complete auto&auto difrntl wbc Nessa Green Work Phone: Plan of Treatment Date Care Activity Detail Author Start: 09-07-2025 Lipid panel [facility] Start: 09-07-2025 LIPID SCREEN LIPID SCREEN [facility] Start: 08-19-2024 DIABETES SCREEN DIABETES SCREEN [facility] Start: 05-30-2024 Creatinine measurement Basic Metabol ic Panel [facility] Start: 11-05-2023 DTaP/Tdap/Td vaccine (2 - Td or Tdap) DTaP/Tdap/Td vaccine (2 - Td or Tdap) [facility] Start: 11-05-2023 DTaP/Tdap/Td vaccine (2 - Td) DTaP/Tdap/Td vaccine (2 - Td) [place] Start: 11-05-2023 Tetanus vaccination Tetanus (T d or Tdap) Booster [facility] Start: 11-05-2023 Urine microalbumin profile DTAP,TDAP,TD (2 - Td or Tdap) [facility] Start: 06-23-2023 Influenza vaccination Influenza Vacc ine (#1) [facility] Start: 05-24-2023 Influenza vaccination Influenza Vacc ine (#1) [facility] Start: 05-05-2023 CT of head without contrast CT head/brain wo con [facility] Start: 05-05-2023 CT Unspecified body region WO contrast [facility] Start: 05-05-2023 Diagnostic radiograp hy of abdomen [facility] Start: 05-05-2023 [facility] Start: 04-23-2023 Influenza vaccination Flu vacc ine (Season Ended) [facility] Start: 02-06-2023 Patient encounter procedure GASTRO RAVENNA Start: 01-29-2023 End: 01-30-2024 Ondansetron Injectable 4 mg IntraVenous Push Once STAT ; (ZOFRAN)DOSE = 4 mg IntraVenous Push Once Start: 29-Jan-2023 End: 29-Jan-2024 Ordered: 29-Jan-2023 Venessa Mejias Intent [facility] Start: 09-01-2022 BP CONTROLLED (<130/80) BP CONTROLLE D (<130/80) [facility] Start: 05-24-2022 Influenza vaccination INFLUENZA (Sea son Ended) [facility] Start: 03-30-2022 Creatinine measurement Creatinine mo [employer] Phone: Start: 03-30-2022 Potassium monitoring Potassium monit [employer] Phone: Start: 03-29-2022 Creatinine measurement Creatinine mo [employer] Phone: Start: 03-29-2022 Potassium monitoring Potassium monit [employer] Phone: Start: 02-06-2022 ANNUAL PCP TEAM THREE DIMENSIONAL MAP MODELER JULIANA DISEASE VISIT ANNUAL PCP TEAM CHRONIC DISEASE VISIT [facility] Start: 10-09-2021 FUV, Provider: Lily Carvajal, Status: Pen, Time: 1:45 PM FUV, Provider: Lily Carvajal, Status: Pen, Time: 1:45 PM IY-Lszoecjjzw-Abbjlh Work Phone: Start: 10-09-2021 Patient encounter procedure [facility] Start: 10-09-2021 FUV, Provider: Arleth Meredith, Status: Pen, Time: 1:40 PM FUV, Provider: Arleth Meredith, Status: Pen, Time: 1:40 PM PT-Jjawvhrzcg-YXOE [place] [address] [place] Work Phone: Start: 09-04-2021 NPV, Provider: Nessa Vicente, Status: Pen, Time: 11:00 AM NPV, Provider: Nessa Vicente, Status: Pen, Time: 11:00 AM VB-Pxebctjaig-Pvwulu Work Phone: Start: 08-28-2021 Patient encounter procedure [facility] Start: 08-23-2021 FUV, Provider: Max Delatorre, Status: Pen, Time: 2:50 PM FUV, Provider: Max Delatorre, Status: Pen, Time: 2:50 PM [facility] [facility] Work Phone: Start: 08-23-2021 Patient encounter procedure [facility] [place] Start: 08-23-2021 NPV, Provider: Lily Carvajal, Status: Pen, Time: 10:45 AM NPV, Provider: Lily Carvajal, Status: Pen, Time: 10:45 AM [facility] [facility] Work Phone: Start: 08-23-2021 Patient encounter procedure [facility] Start: 08-07-2021 NPV, Provider: Lily Carvajal, Status: Pen, Time: 1:00 PM NPV, Provider: Lily Carvajal, Status: Pen, Time: 1:00 PM DE-Bvwthuixmx-Fbejzxj [address] [facility] Work Phone: Start: 08-04-2021 FUV, Provider: Latha Messina, Status: Pen, Time: 1:20 PM FUV, Provider: Latha Messina, Status: Pen, Time: 1:20 PM AO-Kvoqebsokm-Xoxerdi [address] [facility] Work Phone: Start: 08-02-2021 ARTBPGUEUN, Provider : TRAVIS FELTON, Status: Pen, Time: 11:00 AM ARTBPGUEUN, Provider: TRAVIS FELTON, Status: Pen, Time: 11:00 AM WS-Yqezwnqmaq-Jfdivaj [address] [facility] Work Phone: Start: 08-01-2021 COLON, Provider: Lynette Saldaña, Status: Pen, Time: 3:00 PM COLON, Provider: Lynette Saldaña, Status: Pen, Time: 3:00 PM IX-Iwuvtzqshn-Lbllhls [address] [facility] Work Phone: Start: 07-26-2021 NPV, Provider: Max Delatorre, Status: Pen, Time: 3:00 PM NPV, Provider: Max Delatorre, Status: Pen, Time: 3:00 PM AQ-Zllzhqfgbv-Vipxmnu [address] [facility] Work Phone: Start: 07-26-2021 ARTBPGUEUN, Provider : FARHEEN FELTON, Status: Pen, Time: 2:00 PM ARTBPGUEUN, Provider: FARHEEN FELTON, Status: Pen, Time: 2:00 PM BK-Aurjzqcgzi-Ucafqnj [address] [facility] Work Phone: Start: 07-26-2021 Patient encounter procedure [facility] [place] Start: 2021 Shingles (RZV) Vacci ne (1 of 2) Shingles (RZV) Vaccine (1 of 2) [facility] Start: 2021 Shingles Vaccine (1 of 2) Shingles Vaccine (1 of 2) [facility] Start: 2021 SHINGRIX VACCINE (1 of 2) SHINGRIX VACCINE (1 of 2) [facility] Start: 2021 Zoster Vaccines (1 o f 2) Zoster Vaccines (1 of 2) [facility] Start: 07-18-2021 COLON, Provider: Lynette Saldaña, Status: Pen, Time: 2:20 PM COLON, Provider: Lynette Saldaña, Status: Pen, Time: 2:20 PM IY-Cuolzwdzgv-Mgiveqq [address] [facility] Work Phone: Start: 07-18-2021 COLON, Provider: Lynette Saldaña, Status: Pen, Time: 2:00 PM COLON, Provider: Lynette Saldaña, Status: Pen, Time: 2:00 PM [facility] Work Phone: Start: 07-18-2021 Patient encounter procedure [facility] Start: 07-05-2021 End: 07-06-2022 [facility] Start: 07-05-2021 End: 07-06-2022 [facility] Comment on above: Administer with Q 4 hour Heparin Assay result, beginning 4 hours after the drip initiation. Call physician with lab results. 1. Dilute 1.3 mL of activated DEFINITY with 8.7 mL of normal saline in a 10 mL syringe.2. Inject 0.5 mL of diluted DEFINITY when notified the images/film are unclear to enhance view of Left Ventricular borders.3. Repeat 0.5 mL of DEFINITY until clear images are obtained, not to exceed 10 mLs.4. Once images are obtained or limit of medication is reached, flush line with 10 mL of Normal Saline. Start: 07-05-[address] [facility] Preadmit [id number] [id number] Start: 05-Jul-2021 7:[address] [facility] Provider: Tay Lott, Status: Pen, Time: 7:00 AM [facility] Provider: Tay Lott, Status: Jose A, Time: 7:00 AM [facility] [facility] Work Phone: Start: 07-04-2021 End: 07-05-2022 [facility] Start: 06-28-2021 Patient encounter procedure Outpatient [facility] [place] [id number] [facility] [id number] Start: 28-Jun-2021 9:40 Latha Messina Intent [facility] Start: 06-26-2021 End: 06-27-2022 [facility] Start: 06-26-2021 End: 06-29-2021 Iohexol (Omnipaque 350-Radiology Contrast) . ; (OMNIPAQUE)DOSE = 114 mL IntraVenous Push OnceCa.5 mL/Kg/DOSE x 76 Kg = 114 mL/Dose (Daily Total is 114 mL)LABS: Blood Urea Nitrogen, Serum,12,14-Jun-2021 09:02:41 Creatinine, Serum,0.99,14-Jun-2021 09:02:41 GFR-Non ,>60,14-Jun-2021 09:02:41 GFR-,>60,14-Jun-2021 09:02:41 Start: 26-Jun-2021 End: 28-Jun-2021 Ordered: 26-Jun-2021 Balta Melo Intent [facility] Start: 06-23-2021 FUVHOSP, Provider: Viral Amado, Status: Pen, Time: 11:15 AM FUVHOSP, Provider: Viral Amado, Status: Pen, Time: 11:[address] [facility] [address] Work Phone: Start: 06-23-2021 Patient encounter procedure [facility] Start: 06-21-2021 EGD, Provider: Jaylin Briones, Status: Pen, Time: 8:00 AM EGD, Provider: Jaylin Briones, Status: Pen, Time: 8:00 AM [facility] Work Phone: Start: 06-21-2021 Patient encounter procedure [facility] Start: 06-02-2021 FUVHOSP, Provider: Viral Amado, Status: Pen, Time: 7:45 AM FUVHOSP, Provider: Viral Amado, Status: Pen, Time: 7:45 AM [facility] Work Phone: Start: 06-02-2021 Patient encounter procedure [facility] Start: 05-27-2021 End: 05-28-2022 Acetaminophen 975 mg Oral Tablet Once ; Tablet (TYLENOL)DOSE = 975 mg Oral Once Start: 27-May-2021 End: 27-May-2022 Ordered: 27-May-2021 No[facility] Start: 05-24-2021 Influenza vaccination Flu vaccine (# 1) [facility] Work Phone: Start: 05-17-2021 EGD, Provider: Jaylin Briones, Status: Pen, Time: 11:40 AM EGD, Provider: Jaylin Briones, Status: Pen, Time: 11:40 AM [facility] Work Phone: Start: 05-17-2021 Patient encounter procedure [facility] Start: 05-11-2021 NPVOMT, Provider: Elizabet Morales, Status: Pen, Time: 2:00 PM NPVOMT, Provider: Elizabet Morales, Status: Pen, Time: 2:00 PM [facility] Work Phone: Start: 05-11-2021 Patient encounter procedure [facility] Start: 04-26-2021 Patient encounter procedure [facility] Start: 04-25-2021 Patient encounter procedure [facility] Start: 04-21-2021 End: 04-22-2022 Ondansetron Dispersible 4 mg Oral Tablet Once STAT ; Tablet, Disintegrating (ZOFRAN)DOSE = 4 mg Oral Once, PRN Nausea Start: 21-Apr-2021 End: 21-Apr-2022 Ordered: 21-Apr-2021 Daniela Church Intent [facility] Start: 04-20-2021 Evaluation and management of inpatient [facility] Preadmit Start: 04-19-2021 Patient encounter procedure [facility] [place] Start: 04-03-2021 Chest pain Chest pain Didier e: 03-Apr-2021 [facility] Start: 03-30-2021 End: 03-30-2021 Patient encounter procedure 03/30/2021 Appointment Radiology [facility] Rad[facility] Start: 03-24-2021 End: 03-24-2022 Lidocaine 5% Topical Ointment 1 application 3 Times a Day ; DOSE = 1 application(s) Topical OnceApply to Rectum Start: 23-Mar-2021 End: 23-Mar-2022 Ordered: 23-Mar-2021 Cheo Tiwari Intent [facility] Start: 03-23-2021 EPV, Provider: Wally Lawton, Status: Pen, Time: 3:45 PM EPV, Provider: Wally Lawton, Status: Pen, Time: 3:45 PM XW-Rrjljnsnrx-Ngltpto e [facility] Work Phone: Start: 03-23-2021 Patient encounter procedure [facility] [place] Start: 03-23-2021 VIRFUVHOME, Provider : Wally Lawton, Status: Pen, Time: 3:45 PM VIRFUVSRINATH, Provider: Wally Lawton, Status: Pen, Time: 3:45 PM [facility] Work Phone: Start: 03-15-2021 NPV, Provider: Viral Amado, Status: Pen, Time: 2:30 PM NPV, Provider: Viral Amado, Status: Pen, Time: 2:30 PM FF-Oaziiossykbjdons-P [facility] Work Phone: Start: 03-15-2021 Patient encounter procedure [facility] [place] Start: 03-14-2021 Patient encounter procedure [facility] Start: 03-03-2021 Patient encounter procedure [facility] Start: 02-21-2021 Patient encounter procedure [facility] Start: 02-15-2021 Patient encounter procedure Outpatient [facility] Start: 15-Feb-2021 13:00 Andre Coats Intent [facility] Start: 02-13-2021 Patient encounter procedure [facility] Start: 12-14-2020 Creatinine monitoring Creatinine mon [place]oring [place] Start: 12-14-2020 Potassium monitoring Potassium monit [place]ing [place] Start: 05-24-2020 Influenza vaccination Flu vacc ine (Season Ended) [place] Start: 05-24-2019 Influenza vaccination Flu vaccine (# 1) [place] Start: 2016 COLOGUARD (FIT-DNA) COLOGUARD (FIT-D NA) [facility] Start: 2016 Colonoscopy COLONOSCOPY [facility] Start: 2016 COLORECTAL CANCER SCREENING COLORECTAL CANCER SCREENING [facility] Start: [address] COLONOGRAPHY [facility] Start: 2016 FECAL OCCULT BLOOD FECAL OCCULT BLOO D [facility] Start: 2016 Screening for malign ant neoplasm of colon [facility] Start: 2016 [facility] Start: 2011 Diabetes screen Diabetes screen [place], [place] Start: 2011 Lipid panel [facility] Start: 2011 Lipid screen Lipid screen [place] Start: 2006 Diabetes screen Diabetes screen [facility] Start: 1993 DTaP/Tdap/Td Vaccine s (1 - Tdap) DTaP/Tdap/Td Vaccines (1 - Tdap) [facility] Start: 1989 HEPATITIS C SCREENING HEPATITIS C [facility] Start: 1989 Hepatitis C screening [facility] Start: 1989 HIV SCREENING HIV SCREENING [facility] Start: 1986 HIV screen HIV screen [place] Start: 1986 HIV screening HIV screen [facility] Start: 1983 Adult depression screening assessment DEPRESSION SCREENING [facility] Start: 1983 COVID-19 Vaccine (1) COVID-19 Vaccin e (1) [facility] Work Phone: Start: 1983 Depression Screen Depression Screen [facility] Start: 1977 Pneumococcal 0-64 ye ars Vaccine (1 of 1 - PPSV23) Pneumococcal 0-64 years Vaccine (1 of 1 - PPSV23) [place] Start: 1977 Pneumococcal vaccination Pneumococcal Vaccine(s) (1 - PCV) [facility] Start: 1977 Pneumococcal Vaccine : Pediatrics (0 to 5 Years) and At-Risk Patients (6 to 64 Years) (1 - PCV) Pneumococcal Vaccine: Pediatrics (0 to 5 Years) and At-Risk Patients (6 to 64 Years) (1 - PCV) [facility] Start: 1976 COVID-19 VACCINE (1) COVID-19 VACCIN E (1) [facility] Start: 1972 MMR Vaccines (1 of 1 - Standard series) MMR Vaccines (1 of 1 - Standard series) [facility] Start: 01-19-1972 COVID-19 Vaccine (#1) COVID-19 Vacci ne (#1) [facility] Start: 1971 Hepatitis B Vaccines (1 of 3 - 3-dose series) Hepatitis B Vaccines (1 of 3 - 3-dose series) [facility] Start: 1971 Hepatitis C screening Hepatitis C sc courtney [facility] Work Phone: Start: 1971 Lipid panel Lipid Panel [facility] Start: 1971 Screening for malign ant neoplasm of colon [facility] Start: 1971 Yearly Adult Physical Yearly Adult P hysical [facility] Bilirubin measuremen t, urine [facility] Color of Urine [facility] End: 01-15-2020 Covid-19 Ambulatory Covid-19 Ambulatory Lab Routine Suspected COVID-19 virus infection 1 Occurrences starting 01/15/2020 until 01/15/2020 [facility] [place] Comment on above: 1 Occurrences starti ng 01/15/2020 until 01/15/2020 Covid-19 Ambulatory Covid-19 Amb ulatory Lab Routine Suspected COVID-19 virus infection 01/15/2020 2:43 PM EDT [place] Detection of hemoglobin [facility] EKG 12 Lead [facility] [place], [place] EKG 12 Lead EKG 12 Lead ECG STAT 02/01/2023 12:11 AM EDT [employer] Work Phone: EKG 12 Lead EKG 12 Lead ECG STAT 02/02/2023 7:46 PM EDT [employer] Work Phone: Glucose [Mass/volume ] in Urine by Test strip [facility] History of tooth extraction History of tooth extraction [facility] End: 03-29-2021 Lipase [Enzymatic activity/volume] in Serum or Plasma Lipase Lab STAT One Time for 1 Occurrences starting 03/29/2021 until 03/29/2021 [employer] Work Phone: Comment on above: One Time for 1 Occur rences starting 03/29/2021 until 03/29/2021 Measurement of keton es in urine using dipstick [facility] Patient Education [facility] Work Phone: Patient referral [facility] Work Phone: Protein measurement, urine [facility] Serum Drug Screen Serum Drug Scr een Lab STAT 02/01/2023 1:00 AM EDT [employer] Work Phone: Urinalysis, specific gravity measurement [facility] Urine dipstick for nitrite [facility] Urine dipstick for specific gravity [facility] Urine pH test [facility] End: 05-30-2023 Urnls dip stick/tablet rgnt auto w/o microscopy URINALYSIS,AUTO-IN OFFICE Lab STAT One time for 1 Occurrences starting 05/30/2023 until 05/30/2023 [employer] Work Phone: Comment on above: One time for 1 Occur rences starting 05/30/2023 until 05/30/2023 Urobilinogen concentration, test strip measurement [facility] End: 03-29-2021 US ABDOMEN LIMITED US ABDOMEN LIMITED Imaging STAT Once for 1 Occurrences starting 03/29/2021 until 03/29/2021 [employer] Work Phone: Comment on above: Once for 1 Occurrenc es starting 03/29/2021 until 03/29/2021 US ABDOMEN LIMITED US ABDOMEN LI MITED Imaging STAT 03/29/2021 8:39 PM EDT [employer] Work Phone: End: 03-29-2021 XR CHEST PORTABLE XR CHEST PORTABLE Imaging STAT Once for 1 Occurrences starting 03/29/2021 until 03/29/2021 [employer] Work Phone: Comment on above: Once for 1 Occurrenc es starting 03/29/2021 until 03/29/2021 XR CHEST PORTABLE XR CHEST RITO BLE Imaging STAT 03/29/2021 7:32 PM EDT [employer] Work Phone: Immunizations Immunization Date Immunization Notes Care Provider Mariah pino 09-08-2021 tuberculin skin test ; purified protein derivative solution, intradermal Riley Crawford MD Work Phone: [employer] 11-05-2013 tetanus toxoid, redu mohamud diphtheria toxoid, and acellular pertussis vaccine, adsorbed Nessa Green [facility] Payers Date Payer Category Payer Medicaid [id number] 2023 Medicaid [id number] 2022 Unknown 2022 Unknown 0000 2021 Medicaid [place] MED[place] MEDICAID [id number] 2021-Present [phone] [place] [id number] Medicaid [id number] 2018 Medicaid MEDICAID - OTHER STATE MEDICAID OUT OF STATE x 2018-Present x [id number] [id number] 2014 Medicaid [id number] 1.13.239.2.7.3.6 [id number] 2014 Medicaid 1 [id number] [id number] 2008 Self-pay 1971 Unknown [id number] 2.16.840.1.206548.3.579.2.182 1971 Unknown [id number] 2.16.840.1.745358.3.579.2.182 1971 Unknown [id number] 2.16.840.1.631693.3.579.2.182 1971 Unknown [id number] 2.16.840.1.678004.3.579.2.598 1971 Unknown [id number] 2.16.840.1.490156.3.579.2.598 1971 Unknown [id number] 2.16.840.1.764615.3.579.2.598 1971 Unknown [id number] 2.16.840.1.365613.3.579.2.159 1971 Unknown [id number] 2.16.840.1.120041.3.579.2.1069 1971 Unknown [id number] 2.16.840.1.556752.3.579.2.204 1971 Unknown [id number] 2.16.840.1.707180.3.579.2.204 1971 Unknown [id number] 2.16.840.1.590982.3.579.2.204 1971 Unknown [id number] 2.16.840.1.633170.3.579.2.204 1971 Unknown [id number] 2.16.840.1.063033.3.579.2.204 1971 Unknown [id number] 2.16.840.1.600115.3.579.2.175 1971 Unknown [id number] 2.16.840.1.922422.3.579.2.175 1971 Unknown [id number] 2.16.840.1.160155.3.579.2.175 1971 Unknown [id number] 2.16.840.1.920778.3.579.2.175 1971 Unknown [id number] 2.16.840.1.572498.3.579.2.693 1971 Unknown [id number] 2.16.840.1.383435.3.579.2.693 1971 Unknown [id number] 2.16.840.1.323171.3.579.2.732 1971 Unknown [id number] 2.16.840.1.636929.3.579.2.356 1971 Unknown [id number] 2.16.840.1.542190.3.579.2.356 1971 Unknown [id number] 2.16.840.1.122601.3.579.2.356 1971 Unknown [id number] 2.16.840.1.960024.3.579.2.727 1971 Unknown [id number] 2.16.840.1.376784.3.579.2.174 1971 Unknown [id number] 2.16.840.1.604842.3.579.2.174 1971 Unknown [id number] 2.16.840.1.719432.3.579.2.727 1971 Unknown [id number] 2.16.840.1.313063.3.579.2.727 1971 Unknown [id number] 2.16.840.1.042754.3.579.2.727 1971 Unknown [id number] 2.16.840.1.886993.3.579.2.727 1971 Unknown [id number] 2.16.840.1.695002.3.579.2.727 1971 Unknown [id number] 2.16.840.1.720248.3.579.2.727 1971 Unknown [id number] 2.16.840.1.313984.3.579.2.727 1971 Unknown [id number] 2.16.840.1.353766.3.579.2.727 1959 Unknown [id number] 1.2.840.174486.1.13.239.2.7.3.6 [id number] Unknown [id number] Unknown [id number] 2.16.840.1.566835.3.579.2.531 Unknown [id number] 2.16.840.1.748283.3.579.2.531 Unknown [id number] 2.16.840.1.193729.3.579.2.531 Unknown [id number] 2.16.840.1.562109.3.579.2.531 Social History Date Type Detail Facility Tobacco smoking status MIIS Unknown if ever smoked [facility] Start: 1970 Sex Assigned At Male F [facility] Start: 01-14-2020 End: 05-05-2023 Tobacco smoking status NHIS Current some day smoker [facility] History of tobacco use Cigar Sm[place] Start: 01-14-2020 End: 09-08-2021 Alcohol intake Current drinker of alcohol (finding) [place] Start: 01-14-2020 [facility] 1970 [facility] SARS-[facility]2 (event) Unable to assess [facility] Start: 09-29-2018 End: 01-17-2020 Tobacco smoking status NHIS Former smoker Kendra [facility] Start: 12-13-2019 End: 2024 Tobacco smoking status NHIS Never smoker [facility] Start: 05-18-2019 Alcohol intake Yes [facility] Tobacco smoking consumption unknown [facility] [place] Start: 03-29-2021 End: 02-01-2023 Homeless Homeless (V60.0) [facility] Start: 03-29-2021 End: 09-08-2021 Tobacco use and exposure Never used [employer] Exposure to SARS-CoV-2 (event) Not sure 2d2c [place] History of tobacco use Cigarette Smoker [facility] Start: 02-04-2020 End: 02-01-2023 History SDOH Alcohol Std Drinks 1 [facility] Start: 02-04-2020 End: 02-02-2023 History SDOH Alcohol Binge 2 [facility] Start: 02-21-2021 History SDOH Alcohol Comment pt sts a beer a day. daily [facility] History of tobacco use Current smoker [employer] Work Phone: Start: 02-01-2023 History SDOH Alcohol Std Drinks 0 [employer] Work Phone: Start: 02-02-2023 History SDOH Alcohol Frequency 4 [employer] Work Phone: Start: 09-08-2021 Tobacco smoking status MIIS Smokes tobacco daily [facility] Tobacco smokes a cigar a bout once a month Tobacco Use:. Cigars [facility] Comment on above: denies at this time Tobacco smoking status No Smoking Status Entered [facility] Start: 07-14-2024 Tobacco smoking status NHIS Current Light tobacco smoker [facility] Goals Date Patient Goal Desired Activity /State Functional Status Date Assessment Result Facility 2024 Functional Status N/A [facility] 07-17-2024 Functional Status N/A [facility] 07-16-2024 Functional Status N/A [facility] 07-11-2024 Functional Status N/A [facility] 07-09-2024 Functional Status N/A [facility] Functional observable [facility] Status Date Assessment Result Facility 07-05-2021 Cognitive functions [id number] [facility] 03-02-2021 Cognitive functions [id number]:40 [facility] Clinical Notes 07-24-2020 to 07-18-2024 Note Date & Type Note Facility 07-18-2024 Evaluation + Plan note Extrac sebastián from: Title:ED Note Author:Neil Alexander DO Date: Anxiety (F41.9: Anxiety diso rder, unspecified) [facility] [id number] Hospital Discharge instructions Patient Education 07/18/2024 00:40:54 Managing Anxiety, Adult Managing Anxiety, Adult After being diagnosed with anxiety, you may be relieved to know why you have felt or behaved a certain way. You may also feel overwhelmed about the treatment ahead and what it will mean for your life. With care and support, you can manage your anxiety. How to manage lifestyle changes Understanding the difference between stress and anxiety Although stress can play a role in anxiety, it is not the same as anxiety. Stress is your body's reaction to life changes and events, both good and bad. Stress is often caused by something external, such as a deadline, test, or competition. It normally goes away after the event has ended and will last just a few hours. But, stress can be ongoing and can lead to more than just stress. Anxiety is caused by something internal, such as imagining a terrible outcome or worrying that something will go wrong that will greatly upset you. Anxiety often does not go away even after the eventis over, and it can become a long-term (chronic) worry. Lowering stress and anxiety Talk with your health care provider or a counselor to learn more about lowering anxiety and stress.They may suggest tension-reduction techniques, such as: Music. Spend time creating or listening to music that you enjoy and that inspires you. Mindfulness-based meditation. Practice being aware of your normal breaths while not trying to control your breathing. It can be done while sitting or walking. Centering prayer. Focus on a word, phrase, or sacred image that means something to you and brings you peace. Deep breathing. Expand your stomach and inhale slowly through your nose. Hold your breath for 3 5 seconds. Then breathe out slowly, letting your stomach muscles relax. Self-talk. Learn to notice and spot thought patterns that lead to anxiety reactions. Change those patterns to thoughts that feel peaceful. Muscle relaxation. Take time to tense muscles and then relax them. Choose a tension-reduction technique that fits your lifestyle and personality. These techniques take time and practice. Set aside 5 15 minutes a day to do them. Specialized therapists can offer counseling and training in these techniques. The training to help with anxiety may be covered by some insurance plans. Other things you can do to manage stress and anxiety include: Keeping a stress diary. This can help you learn what triggers your reaction and then learn ways to manage your response. Thinking about how you react to certain situations. You may not be able to control everything, but you can control your response. Making time for activities that help you relax and not feeling guilty about spending your time in this way. Doing visual imagery. This involves imagining or creating mental pictures to help you relax. Practicing yoga. Through yoga poses, you can lower tension and relax. Medicines Medicines for anxiety include: Antidepressant medicines. These are usually prescribed for long-term daily control. Anti-anxiety medicines. These may be added in severe cases, especially when panic attacks occur. When used together, medicines, psychotherapy, and tension-reduction techniques may be the most effective treatment. Relationships Relationships can play a big part in helping you recover. Spend more time connecting with trusted friends and family members. Think about going to couples counseling if you have a partner, taking family education classes, or going to family therapy. Therapy can help you and others better understandyour anxiety. How to recognize changes in your anxiety Everyone responds differently to treatment for anxiety. Recovery from anxiety happens when symptomslessen and stop interfering with your daily life at home or work. This may mean that you will startto: Have better concentration and focus. Worry will interfere less in your daily thinking. Sleep better. Be less irritable. Have more energy. Have improved memory. Try to recognize when your condition is getting worse. Contact your provider if your symptoms interfere with home or work and you feel like your condition is not improving. Follow these instructions at home: Activity Exercise. Adults should: ?Exercise for at least 150 minutes each week. The exercise should increase your heart rate and makeyou sweat (moderate-intensity exercise). ?Do strengthening exercises at least twice a week. Get the right amount and quality of sleep. Most adults need 7 9 hours of sleep each night. Lifestyle Eat a healthy diet that includes plenty of vegetables, fruits, whole grains, low-fat dairy products, and lean protein. ?Do not eat a lot of foods that are high in fats, added sugars, or salt (sodium). Make choices that simplify your life. Do not use any products that contain nicotine or tobacco. These products include cigarettes, chewing tobacco, and vaping devices, such as e-cigarettes. If you need help quitting, ask your provider. Avoid caffeine, alcohol, and certain bphy-nye-mtkscwb cold medicines. These may make you feel worse. Ask your pharmacist which medicines to avoid. General instructions Take inzv-kuc-gxyphch and prescription medicines only as told by your provider. Keep all follow-up visits. This is to make sure you are managing your anxiety well or if you need more support. Where to find support You can get help and support from: Self-help groups. Online and community organizations. A trusted spiritual leader. Couples counseling. Family education classes. Family therapy. Where to find more information You may find that joining a support group helps you deal with your anxiety. The following sources can help you find counselors or support groups near you: Mental Health [place]: mentalhealthamerica.net Anxiety and Depression Association of [place] (ADAA): adaa.org National [place] [employer] Mental [employer]ness (GLENNY): glenny.org Contact a health care provider if: You have a hard time staying focused or finishing tasks. You spend many hours a day feeling worried about everyday life. You are very tired because you cannot stop worrying. You start to have headaches or often feel tense. You have chronic nausea or diarrhea. Get help right away if: Your heart feels like it is racing. You have shortness of breath. You have thoughts of hurting yourself or others. Get help right away if you feel like you may hurt yourself or others, or have thoughts about takingyour own life. Go to your nearest emergency room or: Call 911. Call the National Suicide Prevention Lifeline at or 003. This is open 24 hours a day. Text the Crisis Text Line at 234762. This information is not intended to replace advice given to you by your health care provider. Make sure you discuss any questions you have with your health care provider. Document Revised: 06/18/2023 Document Reviewed: 12/31/2021 [employer] Work Study Patient Education 2023 [employer]. Follow Up Care 07/17/2024 20:34:54 With:Elizabet Mackay Address: [address] [place] [address] When:07/21/2024 Comments:Call the office of your primary care doctor to arrange for follow-up within the above-stated timeframe. Follow-up with your primary care doctor about this ED visit. You should review your labs, imaging, and diagnoses from this ED visit with your primary care physician. There are occasionally non-emergent findings that require additional follow-up after your ED visit. If you were prescribed medications you should discuss possible side-effects and drug interactions with your pharmacist. Call 911 or go to the nearest Emergency Department if you develop any new or worsening symptoms. [facility] 10-26-2024 NoteED Patient Education Note Mental and Behavioral Health Managing Anxiety, Adult After being diagnosed with anxiety, you may be relieved to know why you have felt or behaved a certain way. You may also feel overwhelmed about the treatment ahead and what it will mean for your life. With care and support, you can manage your anxiety. How to manage lifestyle changes Understanding the difference between stress and anxiety Although stress can play a role in anxiety, it is not the same as anxiety. Stress is your body's reaction to life changes and events, both good and bad. Stress is often caused by something external, such as a deadline, test, or competition. It normally goes away after the event has ended and will last just a few hours. But, stress can be ongoing and can lead to more than just stress. Anxiety is caused by something internal, such as imagining a terrible outcome or worrying that something will go wrong that will greatly upset you. Anxiety often does not go away even after the eventis over, and it can become a long-term (chronic) worry. Lowering stress and anxiety Talk with your health care provider or a counselor to learn more about lowering anxiety and stress.They may suggest tension-reduction techniques, such as: ??? Music. Spend time creating or listening to music that you enjoy and that inspires you. ??? Mindfulness-based meditation. Practice being aware of your normal breaths while not trying to control your breathing. It can be done while sitting or walking. ??? Centering prayer. Focus on a word, phrase, or sacred image that means something to you and brings you peace. ??? Deep breathing. Expand your stomach and inhale slowly through your nose. Hold your breath for 3?5 seconds. Then breathe out slowly, letting your stomach muscles relax. ??? Self-talk. Learn to notice and spot thought patterns that lead to anxiety reactions. Change those patterns to thoughts that feel peaceful. ??? Muscle relaxation. Take time to tense muscles and then relax them. Choose a tension-reduction technique that fits your lifestyle and personality. These techniques take time and practice. Set aside 5?15 minutes a day to do them. Specialized therapists can offer counseling and training in these techniques. The training to help with anxiety may be covered by some insurance plans. Other things you can do to manage stress and anxiety include: ??? Keeping a stress diary. This can help you learn what triggers your reaction and then learn waysto manage your response. ??? Thinking about how you react to certain situations. You may not be able to control everything, but you can control your response. ??? Making time for activities that help you relax and not feeling guilty about spending your time in this way. ??? Doing visual imagery. This involves imagining or creating mental pictures to help you relax. ??? Practicing yoga. Through yoga poses, you can lower tension and relax. Medicines Medicines for anxiety include: ??? Antidepressant medicines. These are usually prescribed for long-term daily control. ??? Anti-anxiety medicines. These may be added in severe cases, especially when panic attacks occur. When used together, medicines, psychotherapy, and tension-reduction techniques may be the most effective treatment. Relationships Relationships can play a big part in helping you recover. Spend more time connecting with trusted friends and family members. Think about going to couples counseling if you have a partner, taking family education classes, or going to family therapy. Therapy can help you and others better understandyour anxiety. How to recognize changes in your anxiety Everyone responds differently to treatment for anxiety. Recovery from anxiety happens when symptomslessen and stop interfering with your daily life at home or work. This may mean that you will startto: ??? Have better concentration and focus. Worry will interfere less in your daily thinking. ??? Sleep better. ??? Be less irritable. ??? Have more energy. ??? Have improved memory. Try to recognize when your condition is getting worse. Contact your provider if your symptoms interfere with home or work and you feel like your condition is not improving. Follow these instructions at home: Activity ??? Exercise. Adults should: ? Exercise for at least 150 minutes each week. The exercise should increase your heart rate and make you sweat (moderate-intensity exercise). ? Do strengthening exercises at least twice a week. ??? Get the right amount and quality of sleep. Most adults need 7?9 hours of sleep each night. Lifestyle ??? Eat a healthy diet that includes plenty of vegetables, fruits, whole grains, low-fat dairy products, and lean protein. ? Do not eat a lot of foods that are high in fats, added sugars, or salt (sodium). ??? Make choices that simplify your life. ??? Do not use any (more content not included)...[facility] 07-17-2024 Hospital Discharge instructions Patient Education 07/16/2024 22:57:26 Caring for Your Mental Health Caring for Your Mental Health Mental health is emotional, psychological, and social well-being. Mental health is just as important as physical health. In fact, mental and physical health are connected, and you need both to be healthy. Some signs of good mental health (well-being) include: Being able to attend to tasks at home, school, or work. Being able to manage stress and emotions. Practicing self-care, which may include: ?A regular exercise pattern. ?A reasonably healthy diet. ?Supportive and trusting relationships. ?The ability to relax and calm yourself (self-calm). Having pleasurable hobbies and activities to do. Believing that you have meaning and purpose in your life. Recovering and adjusting after facing challenges (resilience). You can take steps to build or strengthen these mentally healthy behaviors. There are resources andsupport to help you with this. Why is caring for mental health important? Caring for your mental health is a big part of staying healthy. Everyone has times when feelings, thoughts, or situations feel overwhelming. Mental health means having the skills to manage what feelsoverwhelming. If this sense of being overwhelmed persists, however, you might need some help. If you have some of the following signs, you may need to take better care of your mental health or seek help from a health care provider or mental health professional: Problems with energy or focus. Changes in eating habits. Problems sleeping, such as sleeping too much or not enough. Emotional distress, such as anger, sadness, depression, or anxiety. Major changes in your relationships. Losing interest in life or activities that you used to enjoy. If you have any of these symptoms on most days for 2 weeks or longer: Talk with a close friend or family member about how you are feeling. Contact your health care provider to discuss your symptoms. Consider working with a mental health professional. Your health care provider, family, or friends may be able to recommend a therapist. How to promote emotional and mental health Managing emotions Learn to identify emotions and be honest with yourself about what you are feeling. Recognizing youremotions is the first step in learning to deal with them. Practice ways to appropriately express feelings. Remember that you can control your feelings. They do not control you. Practice stress management techniques, such as: ?Relaxation techniques, like breathing or muscle relaxation exercises. ?Exercise. Regular activity can lower your stress level. ?Changing what you can change and accepting what you cannot change. Build up your resilience so that you can recover and adjust after big problems or challenges. Practice resilient behaviors and attitudes: ?Set long-term goals and focus on them. ?Develop and maintain healthy, supportive relationships. ?Take care of yourself physically by eating a healthy diet, getting plenty of sleep, and exercisingregularly. ?Develop self-awareness. Ask others to give feedback about how they see you. ?Practice mindfulness meditation to help you stay calm when dealing with daily challenges. ?Learn to respond to situations in healthy ways, rather than reacting with your emotions. ?Keep a positive attitude, and believe in yourself. Your view of yourself affects your mental health. ?Develop your listening and empathy skills. These will help you deal with difficult situations and communications. ?Practice acts of kindness and helpfulness toward others. ?Spend time in nature being in the moment and appreciating its beauty. Remember that emotions can be used as a good source of communication and are a great source of energy. Try to laugh and find humor in life. Sleeping Get the right amount and quality of sleep. Sleep has a big impact on physical and mental health. Toimprove your sleep: Go to bed and wake up around the same time every day. Limit screen time before bedtime. This includes the use of your mobile phone, TV, computer, and tablet. Keep your bedroom dark and cool. Activity Exercise or do some physical activity regularly. This helps: Keep your body strong, especially during times of stress. Get rid of chemicals in your body (hormones) that build up when you are stressed. Build up your resilience. Eating and drinking Eat a healthy diet that includes whole grains, vegetables, fresh fruits, and lean proteins. If you have questions about what foods are best for you, ask your health care provider. Try not to turn to sweet, salty, or otherwise unhealthy foods when you are tired or unhappy. This can lead to unwanted weight gain and is not a healthy way to cope with emotions. Where to find more information You can find more information and guidance about how to care for your mental health from: National [place] on Mental Illness (GLENNY): www.glenny.org National [place] of Mental Health: www.nimh.nih.gov Centers for Disease Control and Prevention: www.cdc.gov Contact a health care provider if: You lose interest in being with others or you do not want to leave the house. You have a hard time completing your normal activities or you have less energy than normal. You cannot stay focused or you have problems with memory. You feel that your senses are heightened, and this makes you upset or concerned. You feel nervous or have rapid mood changes. You are sleeping or eating more or less than normal. You question reality or you show odd behavior that disturbs you or others. Get help right away if: You have thoughts about hurting yourself or others. Get help right away if you feel like you may hurt yourself or others, or have thoughts about takingyour own life. Go to your nearest emergency room or: Call 911. Call the National Suicide Prevention Lifeline at or 913 in the [place] This is open 24hours a day. Text the Crisis Text Line at 503025. Summary Mental health is not just the absence of mental illness. It involves understanding your emotions and behaviors, and taking steps to manage them in a healthy way. If you have symptoms of mental or emotional distress, get help from family, friends, a health care provider, or a mental health professional. Practice good mental health behaviors such as stress management skills, self- calming skills, exercise, healthy sleeping and eating, and supportive relationships. This information is not intended to replace advice given to you by your health care provider. Make sure you discuss any questions you have with your health care provider. Document Revised: 04/05/2022 Document Reviewed: 03/30/2022 [employer] Work Study Patient Education 2023 [employer]. Follow Up Care 07/16/2024 21:12:56 With:[facility] Address:Unknown When:07/19/2024 Comments:You have an appointment at the [facility] tomorrow at 10 AM. With:Yang VALENCIA Address: [address] [place] [address] [facility] (1) When:07/19/2024 Comments:Call the office of your primary care doctor to arrange for follow-up within the above-stated timeframe. Follow-up with your primary care doctor about this ED visit. You should review your labs, imaging, and diagnoses from this ED visit with your primary care physician. There are occasionally non-emergent findings that require additional follow-up after your ED visit. If you were prescribed medications you should discuss possible side-effects and drug interactions with your pharmacist. Call 911 or go to the nearest Emergency Department if you develop any new or worsening symptoms. [facility] 10-24-2024 NoteED Patient Education Note Mental and Behavioral Health Caring for Your Mental Health Mental health is emotional, psychological, and social well-being. Mental health is just as important as physical health. In fact, mental and physical health are connected, and you need both to be healthy. Some signs of good mental health (well-being) include: ??? Being able to attend to tasks at home, school, or work. ??? Being able to manage stress and emotions. ??? Practicing self-care, which may include: ? A regular exercise pattern. ? A reasonably healthy diet. ? Supportive and trusting relationships. ? The ability to relax and calm yourself (self-calm). ??? Having pleasurable hobbies and activities to do. ??? Believing that you have meaning and purpose in your life. ??? Recovering and adjusting after facing challenges (resilience). You can take steps to build or strengthen these mentally healthy behaviors. There are resources andsupport to help you with this. Why is caring for mental health important? Caring for your mental health is a big part of staying healthy. Everyone has times when feelings, thoughts, or situations feel overwhelming. Mental health means having the skills to manage what feelsoverwhelming. If this sense of being overwhelmed persists, however, you might need some help. If you have some of the following signs, you may need to take better care of your mental health or seek help from a health care provider or mental health professional: ??? Problems with energy or focus. ??? Changes in eating habits. ??? Problems sleeping, such as sleeping too much or not enough. ??? Emotional distress, such as anger, sadness, depression, or anxiety. ??? Major changes in your relationships. ??? Losing interest in life or activities that you used to enjoy. If you have any of these symptoms on most days for 2 weeks or longer: ??? Talk with a close friend or family member about how you are feeling. ??? Contact your health care provider to discuss your symptoms. ??? Consider working with a mental health professional. Your health care provider, family, or friends may be able to recommend a therapist. How to promote emotional and mental health Managing emotions ??? Learn to identify emotions and be honest with yourself about what you are feeling. Recognizing your emotions is the first step in learning to deal with them. ??? Practice ways to appropriately express feelings. Remember that you can control your feelings. They do not control you. ??? Practice stress management techniques, such as: ? Relaxation techniques, like breathing or muscle relaxation exercises. ? Exercise. Regular activity can lower your stress level. ? Changing what you can change and accepting what you cannot change. ??? Build up your resilience so that you can recover and adjust after big problems or challenges. Practice resilient behaviors and attitudes: ? Set long-term goals and focus on them. ? Develop and maintain healthy, supportive relationships. ? Take care of yourself physically by eating a healthy diet, getting plenty of sleep, and exercising regularly. ? Develop self-awareness. Ask others to give feedback about how they see you. ? Practice mindfulness meditation to help you stay calm when dealing with daily challenges. ? Learn to respond to situations in healthy ways, rather than reacting with your emotions. ? Keep a positive attitude, and believe in yourself. Your view of yourself affects your mental health. ? Develop your listening and empathy skills. These will help you deal with difficult situations andcommunications. ? Practice acts of kindness and helpfulness toward others. ? Spend time in nature being in the moment and appreciating its beauty. ??? Remember that emotions can be used as a good source of communication and are a great source of energy. Try to laugh and find humor in life. Sleeping Get the right amount and quality of sleep. Sleep has a big impact on physical and mental health. Toimprove your sleep: ??? Go to bed and wake up around the same time every day. ??? Limit screen time before bedtime. This includes the use of your mobile phone, TV, computer, andtablet. ??? Keep your bedroom dark and cool. Activity Exercise or do some physical activity regularly. This helps: ??? Keep your body strong, especially during times of stress. ??? Get rid of chemicals in your body (hormones) that build up when you are stressed. ??? Build up your resilience. Eating and drinking ??? Eat a healthy diet that includes whole grains, vegetables, fresh fruits, and lean proteins. If you have questions about what foods are best for you, ask your health care provider. ??? Try not to turn to sweet, salty, or otherwise unhealthy foods when you are tired or unhappy. This can lead to unwanted weight gain and is not a healthy way to cope with emotions. Where to (more content not included)...[facility]10-[facility]24 Hospital Discharge instructions Patient Education 07/11/2024 14:18:44 Head Injury, Adult Head Injury, Adult There are many types of head injuries. Head injuries can be as minor as a small bump, or they can be a serious medical issue. More severe head injuries include: A jarring injury to the brain (concussion). A bruise (contusion) of the brain. This means there is bleeding in the brain that can cause swelling. A cracked skull (skull fracture). Bleeding in the brain that collects, clots, and forms a bump (hematoma). After a head injury, most problems occur within the first 24 hours, but side effects may occur up to 7 10 days after the injury. It is important to watch your condition for any changes. You may need to be observed in the emergency department or urgent care, or you may have to stay in the hospital. What are the causes? There are many causes of a head injury. Serious head injuries may be caused by car crashes, bicycleor motorcycle crashes, sports injuries, falls, or being struck by an object. What are the symptoms? Symptoms of a head injury include a contusion, bump, or bleeding at the site of the injury. Other physical symptoms may include: Headache. Nausea or vomiting. Dizziness. Blurred or double vision. Sensitivity to bright lights or loud noises. Feeling tired. Trouble waking up. Severe symptoms such as: ?Weakness or numbness on one side of the body. ?Slurred speech or swallowing problems. ?Loss of consciousness. ?Seizures. Mental symptoms may include: Irritability. Confusion and memory problems. Poor attention and concentration. Changes in eating or sleeping habits. Anxiety or depression. How is this diagnosed? This condition is diagnosed based on your symptoms and a physical exam. You may also have imaging tests done, such as a CT scan or an MRI. How is this treated? Treatment for this condition depends on the severity and type of injury you have. The main goal of treatment is to prevent complications and allow the brain time to heal. Mild head injury If you have a mild head injury, you may be sent home, and treatment may include: Observation. A responsible adult should stay with you for 24 hours after your injury and check on you often. Physical rest. Brain rest. Pain medicines. Severe head injury If you have a severe head injury, treatment may include: Close observation. You may have to stay in the hospital and have: ?Frequent physical exams. ?Frequent checks of how your brain and nervous system are working. ?Your blood pressure and oxygen levels checked. Medicines to relieve pain, prevent seizures, and decrease brain swelling. Airway protection and breathing support. This may include using a ventilator. Monitoring and managing swelling inside the brain. Brain surgery. Surgery may include: ?Removing a collection of blood or blood clots. ?Stopping the bleeding. ?Removing a part of the skull to make room for the brain to swell. Follow these instructions at home: Activity Rest. Avoid activities that are hard or tiring. Make sure you get enough sleep. Let your brain rest by limiting activities that take a lot of thought or attention, such as: ?Watching TV. ?Playing memory games and doing puzzles. ?Job-related work or homework. ?Working on the computer, using social media, and texting. Avoid activities that could cause another head injury, such as playing sports, until your health care provider approves. Ask your provider when it is safe for you to return to your regular activities, such as work or school. Ask your provider when you can drive, ride a bicycle, or use machinery. Your ability to react may be slower after a brain injury. Do not do these activities if you are dizzy. Lifestyle Do not drink alcohol until your provider approves. Do not use drugs. Alcohol and certain drugs may slow your recovery and can put you at risk of further injury. If it is hard to remember things, write them down. If you are easily distracted, try to do one thing at a time. Talk with family members or close friends when making important decisions. Tell your friends, family, a trusted colleague, and concession worker about your injury, symptoms, and restrictions. Ask them to watch for any problems that are new or get worse. General instructions Take [id number] and prescription medicines only as told by your provider. Have a responsible adult stay with you for 24 hours after your head injury. They should watch you for any changes in your symptoms and be ready to get help right away. Keep all follow-up visits to make sure your needs are being met and catch any new problems early. How is this prevented? Avoiding another brain injury is very important. In rare cases, another injury can lead to permanent brain damage, brain swelling, or . The risk of this is greatest during the first 7 10 days after a head injury. To avoid injuries: Improve your balance and strength to avoid falls. Wear a seat belt when you are in a moving vehicle. Wear a helmet when riding a bicycle, skiing, or doing any other sport that has a risk of injury. Take safety measures in your home to prevent falls, such as: ?Removing clutter and tripping hazards. ?Using grab bars in bathrooms and handrails by stairs. ?Placing non-slip mats on floors and in bathtubs. ?Improving lighting in dim areas. Where to find more information Brain Injury Association: biausa.org Contact a health care provider if: You have headaches that do not go away. You have dizziness that does not go away. You have double vision or vision changes that do not go away. You have difficulty sleeping. You have changes in your mood. You have new symptoms. Get help right away if: You have sudden: ?Severe headache. ?Severe vomiting. ?Unequal pupil size. One is bigger than the other. ?Vision problems. ?Confusion or irritability. You have a seizure. Your symptoms get worse. You have clear or bloody fluid coming from your nose or ears. These symptoms may be an emergency. Get help right away. Call 911. Do not wait to see if the symptoms will go away. Do not drive yourself to the hospital. This information is not intended to replace advice given to you by your health care provider. Make sure you discuss any questions you have with your health care provider. Document Revised: 06/27/2023 Document Reviewed: 06/27/2023 [employer] Work Study Patient Education 2023 [employer]. 07/11/2024 14:18:44 Palpitations Palpitations Palpitations are feelings that your heartbeat is irregular or is faster than normal. It may feel like your heart is fluttering or skipping a beat. Palpitations may be caused by many things, includingsmoking, caffeine, alcohol, stress, and certain medicines or drugs. Most causes of palpitations arenot serious. However, some palpitations can be a sign of a serious problem. Further tests and a thorough medicalhistory will be done to find the cause of your palpitations. Your provider may order tests such as an ECG, labs, an echocardiogram, or an ambulatory continuous ECG monitor. Follow these instructions at home: Pay attention to any changes in your symptoms. Let your health care provider know about them. Take these actions to help manage your symptoms: Eating and drinking Follow instructions from your health care provider about eating or drinking restrictions. You may need to avoid foods and drinks that may cause palpitations. These may include: Caffeinated coffee, tea, soft drinks, and energy drinks. Chocolate. Alcohol. Diet pills. Lifestyle Take steps to reduce your stress and anxiety. Things that can help you relax include: ?Yoga. ?Mind-body activities, such as deep breathing, meditation, or using words and images to create positive thoughts (guided imagery). ?Physical activity, such as swimming, jogging, or walking. Tell your health care provider if your palpitations increase with activity. If you have chest pain or shortness of breath with activity, do not continue the activity until you are seen by your health care provider. ?Biofeedback. This is a method that helps you learn to use your mind to control things in your body, such as your heartbeat. Get plenty of rest and sleep. Keep a regular bed time. Do not use drugs, including cocaine or ecstasy. Do not use marijuana. Do not use any products that contain nicotine or tobacco. These products include cigarettes, chewing tobacco, and vaping devices, such as e-cigarettes. If you need help quitting, ask your health careprovider. General instructions Take ibrh-iog-xgyytbl and prescription medicines only as told by your health care provider. Keep all follow-up visits. This is important. These may include visits for further testing if palpitations do not go away or get worse. Contact a health care provider if: You continue to have a fast or irregular heartbeat for a long period of time. You notice that your palpitations occur more often. Get help right away if: You have chest pain or shortness of breath. You have a severe headache. You feel dizzy or you faint. These symptoms may represent a serious problem that is an emergency. Do not wait to see if the symptoms will go away. Get medical help right away. Call your local emergency services (911 in the [place] Do not drive yourself to the hospital. Summary Palpitations are feelings that your heartbeat is irregular or is faster than normal. It may feel like your heart is fluttering or skipping a beat. Palpitations may be caused by many things, including smoking, caffeine, alcohol, stress, certain medicines, and drugs. Further tests and a thorough medical history may be done to find the cause of your palpitations. Get help right away if you faint or have chest pain, shortness of breath, severe headache, or dizziness. This information is not intended to replace advice given to you by your health care provider. Make sure you discuss any questions you have with your health care provider. Document Revised: 01/31/2022 Document Reviewed: 01/31/2022 [employer] Work Study Patient Education 2023 [employer]. Follow Up Care 07/11/2024 10:44:14 With:Rao Samayoa Address: [address] [place] [address]- [phone] Business (1) When:07/14/2024 14:00:32 Comments:Follow-up with Dr. Samayoa for Holter monitor placement and Dr. Valencia as discussed. Return to the emergency room if your palpitation recurs, headache gets worse or any new symptoms. With:Yang VALENCIA Address: [address] [place], [place] [id number]- Business (1) When:Within 3 Day(s) [facility] 10-19-2024 NoteED Patient Education Note Emergency Medicine Palpitations Palpitations are feelings that your heartbeat is irregular or is faster than normal. It may feel like your heart is fluttering or skipping a beat. Palpitations may be caused by many things, includingsmoking, caffeine, alcohol, stress, and certain medicines or drugs. Most causes of palpitations arenot serious. However, some palpitations can be a sign of a serious problem. Further tests and a thorough medicalhistory will be done to find the cause of your palpitations. Your provider may order tests such as an ECG, labs, an echocardiogram, or an ambulatory continuous ECG monitor. Follow these instructions at home: Pay attention to any changes in your symptoms. Let your health care provider know about them. Take these actions to help manage your symptoms: Eating and drinking Follow instructions from your health care provider about eating or drinking restrictions. You may need to avoid foods and drinks that may cause palpitations. These may include: ? Caffeinated coffee, tea, soft drinks, and energy drinks. ? Chocolate. ? Alcohol. ? Diet pills. Lifestyle ? Take steps to reduce your stress and anxiety. Things that can help you relax include: ? Yoga. ? Mind-body activities, such as deep breathing, meditation, or using words and images to create positive thoughts (guided imagery). ? Physical activity, such as swimming, jogging, or walking. Tell your health care provider if your palpitations increase with activity. If you have chest pain or shortness of breath with activity, donot continue the activity until you are seen by your health care provider. ? Biofeedback. This is a method that helps you learn to use your mind to control things in your body, such as your heartbeat. ? Get plenty of rest and sleep. Keep a regular bed time. ? Do not use drugs, including cocaine or ecstasy. Do not use marijuana. ? Do not use any products that contain nicotine or tobacco. These products include cigarettes, chewing tobacco, and vaping devices, such as e-cigarettes. If you need help quitting, ask your health care provider. General instructions ? Take ttvb-jho-snutseu and prescription medicines only as told by your health care provider. ? Keep all follow-up visits. This is important. These may include visits for further testing if palpitations do not go away or get worse. Contact a health care provider if: ? You continue to have a fast or irregular heartbeat for a long period of time. ? You notice that your palpitations occur more often. Get help right away if: ? You have chest pain or shortness of breath. ? You have a severe headache. ? You feel dizzy or you faint. These symptoms may represent a serious problem that is an emergency. Do not wait to see if the symptoms will go away. Get medical help right away. Call your local emergency services (911 in the [place] Do not drive yourself to the hospital. Summary ? Palpitations are feelings that your heartbeat is irregular or is faster than normal. It may feel like your heart is fluttering or skipping a beat. ? Palpitations may be caused by many things, including smoking, caffeine, alcohol, stress, certain medicines, and drugs. ? Further tests and a thorough medical history may be done to find the cause of your palpitations. ? Get help right away if you faint or have chest pain, shortness of breath, severe headache, or dizziness. This information is not intended to replace advice given to you by your health care provider. Make sure you discuss any questions you have with your health care provider. Document Revised: 01/31/2022 Document Reviewed: 01/31/2022 [employer] Work Study Patient Education ? 2023 [employer]. Neurology Head Injury, Adult There are many types of head injuries. Head injuries can be as minor as a small bump, or they can be a serious medical issue. More severe head injuries include: ? A jarring injury to the brain (concussion). ? A bruise (contusion) of the brain. This means there is bleeding in the brain that can cause swelling. ? A cracked skull (skull fracture). ? Bleeding in the brain that collects, clots, and forms a bump (hematoma). After a head injury, most problems occur within the first 24 hours, but side effects may occur up to 7?10 days after the injury. It is important to watch your condition for any changes. You may need to be observed in the emergency department or urgent care, or you may have to stay in the hospital. What are the causes? There are many causes of a head injury. Serious head injuries may be caused by car crashes, bicycleor motorcycle crashes, sports injuries, falls, or being struck by an object. What are the symptoms? Symptoms of a head injury include a contusion, bump, or bleeding at the site of the injury. Other physical symptoms may include: ? Headache. ? Nausea or vomit (more content not included)...[facility] 07-09-2024 Hospital Discharge instructions Patient Education 07/09/2024 20:44:47 Hypertension, Adult Hypertension, Adult High blood pressure (hypertension) is when the force of blood pumping through the arteries is too strong. The arteries are the blood vessels that carry blood from the heart throughout the body. Hypertension forces the heart to work harder to pump blood and may cause arteries to become narrow or stiff. Untreated or uncontrolled hypertension can lead to a heart attack, heart failure, a stroke, kidney disease, and other problems. A blood pressure reading consists of a higher number over a lower number. Ideally, your blood pressure should be below 120/80. The first ( top ) number is called the systolic pressure. It is a measure of the pressure in your arteries as your heart beats. The second ( bottom ) number is called the diastolic pressure. It is a measure of the pressure in your arteries as the heart relaxes. What are the causes? The exact cause of this condition is not known. There are some conditions that result in high bloodpressure. What increases the risk? Certain factors may make you more likely to develop high blood pressure. Some of these risk factorsare under your control, including: Smoking. Not getting enough exercise or physical activity. Being overweight. Having too much fat, sugar, calories, or salt (sodium) in your diet. Drinking too much alcohol. Other risk factors include: Having a personal history of heart disease, diabetes, high cholesterol, or kidney disease. Stress. Having a family history of high blood pressure and high cholesterol. Having obstructive sleep apnea. Age. The risk increases with age. What are the signs or symptoms? High blood pressure may not cause symptoms. Very high blood pressure (hypertensive crisis) may cause: Headache. Fast or irregular heartbeats (palpitations). Shortness of breath. Nosebleed. Nausea and vomiting. Vision changes. Severe chest pain, dizziness, and seizures. How is this diagnosed? This condition is diagnosed by measuring your blood pressure while you are seated, with your arm resting on a flat surface, your legs uncrossed, and your feet flat on the floor. The cuff of the bloodpressure monitor will be placed directly against the skin of your upper arm at the level of your heart. Blood pressure should be measured at least twice using the same arm. Certain conditions can cause a difference in blood pressure between your right and left arms. If you have a high blood pressure reading during one visit or you have normal blood pressure with other risk factors, you may be asked to: Return on a different day to have your blood pressure checked again. Monitor your blood pressure at home for 1 week or longer. If you are diagnosed with hypertension, you may have other blood or imaging tests to help your health care provider understand your overall risk for other conditions. How is this treated? This condition is treated by making healthy lifestyle changes, such as eating healthy foods, exercising more, and reducing your alcohol intake. You may be referred for counseling on a healthy diet and physical activity. Your health care provider may prescribe medicine if lifestyle changes are not enough to get your blood pressure under control and if: Your systolic blood pressure is above 130. Your diastolic blood pressure is above 80. Your personal target blood pressure may vary depending on your medical conditions, your age, and other factors. Follow these instructions at home: Eating and drinking Eat a diet that is high in fiber and potassium, and low in sodium, added sugar, and fat. An exampleof this eating plan is called the DASH diet. DASH stands for Dietary Approaches to Stop Hypertension. To eat this way: ?Eat plenty of fresh fruits and vegetables. Try to fill one half of your plate at each meal with fruits and vegetables. ?Eat whole grains, such as whole-wheat pasta, brown rice, or whole-grain bread. Fill about one fourth of your plate with whole grains. ?Eat or drink low-fat dairy products, such as skim milk or low-fat yogurt. ?Avoid fatty cuts of meat, processed or cured meats, and poultry with skin. Fill about one fourth of your plate with lean proteins, such as fish, chicken without skin, beans, eggs, or tofu. ?Avoid pre-made and processed foods. These tend to be higher in sodium, added sugar, and fat. Reduce your daily sodium intake. Many people with hypertension should eat less than 1,500 mg of sodium a day. Do not drink alcohol if: ?Your health care provider tells you not to drink. ?You are , may be , or are planning to become . If you drink alcohol: ?Limit how much you have to: ?0 1 drink a day for women. ?0 2 drinks a day for men. ?Know how much alcohol is in your drink. In the [place] one drink equals one 12 oz bottle of beer (355 mL), one 5 oz glass of wine (148 mL), or one 1 oz glass of hard liquor (44 mL). Lifestyle Work with your health care provider to maintain a healthy body weight or to lose weight. Ask what an ideal weight is for you. Get at least 30 minutes of exercise that causes your heart to beat faster (aerobic exercise) most days of the week. Activities may include walking, swimming, or biking. Include exercise to strengthen your muscles (resistance exercise), such as Pilates or lifting weights, as part of your weekly exercise routine. Try to do these types of exercises for 30 minutes at least 3 days a week. Do not use any products that contain nicotine or tobacco. These products include cigarettes, chewing tobacco, and vaping devices, such as e-cigarettes. If you need help quitting, ask your health careprovider. Monitor your blood pressure at home as told by your health care provider. Keep all follow-up visits. This is important. Medicines Take wnri-isw-adexprv and prescription medicines only as told by your health care provider. Follow directions carefully. Blood pressure medicines must be taken as prescribed. Do not skip doses of blood pressure medicine. Doing this puts you at risk for problems and can makethe medicine less effective. Ask your health care provider about side effects or reactions to medicines that you should watch for. Contact a health care provider if you: Think you are having a reaction to a medicine you are taking. Have headaches that keep coming back (recurring). Feel dizzy. Have swelling in your ankles. Have trouble with your vision. Get help right away if you: Develop a severe headache or confusion. Have unusual weakness or numbness. Feel faint. Have severe pain in your chest or abdomen. Vomit repeatedly. Have trouble breathing. These symptoms may be an emergency. Get help right away. Call 911. Do not wait to see if the symptoms will go away. Do not drive yourself to the hospital. Summary Hypertension is when the force of blood pumping through your arteries is too strong. If this condition is not controlled, it may put you at risk for serious complications. Your personal target blood pressure may vary depending on your medical conditions, your age, and other factors. For most people, a normal blood pressure is less than 120/80. Hypertension is treated with lifestyle changes, medicines, or a combination of both. Lifestyle changes include losing weight, eating a healthy, low-sodium diet, exercising more, and limiting alcohol. This information is not intended to replace advice given to you by your health care provider. Make sure you discuss any questions you have with your health care provider. Document Revised: 07/17/2022 Document Reviewed: 07/17/2022 [employer] Work Study Patient Education 2023 [employer]. Follow Up Care 07/09/2024 18:18:59 With:Gisell Grady Address: [address], [address] [place] [address]- [phone] Business (1) When:07/12/2024 19:40:55 Comments:follow with GI for your abdominal pain With:Yang VALENCIA Address: [address] [place] [address]- Business (1) When:Within 3 Day(s) [facility] 10-17-2024 NoteED Patient Education Note Cardiovascular Hypertension, Adult High blood pressure (hypertension) is when the force of blood pumping through the arteries is too strong. The arteries are the blood vessels that carry blood from the heart throughout the body. Hypertension forces the heart to work harder to pump blood and may cause arteries to become narrow or stiff. Untreated or uncontrolled hypertension can lead to a heart attack, heart failure, a stroke, kidney disease, and other problems. A blood pressure reading consists of a higher number over a lower number. Ideally, your blood pressure should be below 120/80. The first ( top ) number is called the systolic pressure. It is a measure of the pressure in your arteries as your heart beats. The second ( bottom ) number is called the diastolic pressure. It is a measure of the pressure in your arteries as the heart relaxes. What are the causes? The exact cause of this condition is not known. There are some conditions that result in high bloodpressure. What increases the risk? Certain factors may make you more likely to develop high blood pressure. Some of these risk factorsare under your control, including: ? Smoking. ? Not getting enough exercise or physical activity. ? Being overweight. ? Having too much fat, sugar, calories, or salt (sodium) in your diet. ? Drinking too much alcohol. Other risk factors include: ? Having a personal history of heart disease, diabetes, high cholesterol, or kidney disease. ? Stress. ? Having a family history of high blood pressure and high cholesterol. ? Having obstructive sleep apnea. ? Age. The risk increases with age. What are the signs or symptoms? High blood pressure may not cause symptoms. Very high blood pressure (hypertensive crisis) may cause: ? Headache. ? Fast or irregular heartbeats (palpitations). ? Shortness of breath. ? Nosebleed. ? Nausea and vomiting. ? Vision changes. ? Severe chest pain, dizziness, and seizures. How is this diagnosed? This condition is diagnosed by measuring your blood pressure while you are seated, with your arm resting on a flat surface, your legs uncrossed, and your feet flat on the floor. The cuff of the bloodpressure monitor will be placed directly against the skin of your upper arm at the level of your heart. Blood pressure should be measured at least twice using the same arm. Certain conditions can cause a difference in blood pressure between your right and left arms. If you have a high blood pressure reading during one visit or you have normal blood pressure with other risk factors, you may be asked to: ? Return on a different day to have your blood pressure checked again. ? Monitor your blood pressure at home for 1 week or longer. If you are diagnosed with hypertension, you may have other blood or imaging tests to help your health care provider understand your overall risk for other conditions. How is this treated? This condition is treated by making healthy lifestyle changes, such as eating healthy foods, exercising more, and reducing your alcohol intake. You may be referred for counseling on a healthy diet and physical activity. Your health care provider may prescribe medicine if lifestyle changes are not enough to get your blood pressure under control and if: ? Your systolic blood pressure is above 130. ? Your diastolic blood pressure is above 80. Your personal target blood pressure may vary depending on your medical conditions, your age, and other factors. Follow these instructions at home: Eating and drinking ? Eat a diet that is high in fiber and potassium, and low in sodium, added sugar, and fat. An example of this eating plan is called the DASH diet. DASH stands for Dietary Approaches to Stop Hypertension. To eat this way: ? Eat plenty of fresh fruits and vegetables. Try to fill one half of your plate at each meal with fruits and vegetables. ? Eat whole grains, such as whole-wheat pasta, brown rice, or whole-grain bread. Fill about one fourth of your plate with whole grains. ? Eat or drink low-fat dairy products, such as skim milk or low-fat yogurt. ? Avoid fatty cuts of meat, processed or cured meats, and poultry with skin. Fill about one fourth of your plate with lean proteins, such as fish, chicken without skin, beans, eggs, or tofu. ? Avoid pre-made and processed foods. These tend to be higher in sodium, added sugar, and fat. ? Reduce your daily sodium intake. Many people with hypertension should eat less than 1,500 mg of sodium a day. ? Do not drink alcohol if: ? Your health care provider tells you not to drink. ? You are , may be , or are planning to become . ? If you drink alcohol: ? Limit how much you have to: ? 0?1 drink a day for women. ? 0?2 drinks a day for men. ? Know how much alcohol is in your drink. In the [place] one drink equals one 12 oz bottle of beer (355 mL), one 5 oz glass of wine ( (more content not included)...[facility]09-09-2023 Hospital Discharge instructions ED Discharge Education Evaluation from 06/01/2023 12:37 PM: * Discharge Instruction : Reviewed Discharge Instructions with Patient/Significant Other,Patient/Significant Other Verbalized Understanding of Discharge Instructions * Educ Topic #1 : Disease Specific * Barriers to Learning : No Barriers * Teaching Method : Discuss,Reading Materials * Evaluation Method : Verbal * Educ Topic # 2 : Medication * Barriers to Learning : No Barriers * Teaching Method : Discuss * Evaluation Method : Verbal Patient Transfer Information from 06/01/2023 12:01 PM: * LOC : Alert Physician Follow-up Plan/Appointments from 06/01/2023 12:01 PM: * Patient stated Primary Care Provider : Viral Amado (PCP) ([facility]) - Internal Medicine, Physician [facility] 09-07-2023 Hospital Discharge instructions* Discharge Instructions* Riley Crawford MD - 05/30/2023 5:14 PM EDT Keep yourself well hydrated. Avoid alcohol. See your physician this week. Procedures done during this visit: None * Attachments The following attachments cannot be sent through Care Everywhere. * Dizziness, Nonvertigo, Discharge Instructions (Zimbabwean) documented in this [id number] Physician Emergency department Note* Riley Crawford MD - 05/30/2023 1:58 PM EDT EMERGENCY DEPARTMENT - VISIT NOTE HISTORY OF PRESENT ILLNESS Chief Complaint Patient presents with Dizziness Dizziness upon standing Escort Patients: not needed - patient preferred language is [place]an. 52-year-old male was apparently on a park bench and called for EMS for dizziness. [place] [employer] I asked what he was doing there and he states that he was hiking . However he is accompanied by a huge bag full of his belongings. I asked where he lives or if he has a homeand he states that he lives in [place]. Yesterday he was seen at 3 different [facility] Emergency department's, the 1st time at [facility] where he apparently was acting unruly at a gas stationand ended up signing out AMA. He was then seen at [facility] for dark stools and palpitations and was treated and released and finally he was evaluated at [facility] and treated and released. Indeed he has had at least 2 other ER visits to other facilities in the last 10 days. Patient states thathe feels dizzy when he stands. No headache chest pain or abdominal pain. No vomiting or diarrhea. He feels like he maybe dehydrated. He states that he had to beers earlier today as well as a cup ofcoffee which can act as a vasoconstrictor History provided by: PatientLanguage film archivist used: No REVIEW OF SYSTEMS Review of Systems Constitutional: Negative for fever. HENT: Negative for facial swelling. Eyes: Negative for redness. Respiratory: Negative for cough and shortness of breath. Gastrointestinal: Negative for diarrhea and vomiting. Genitourinary: Negative for flank pain. Musculoskeletal: Negative for neck stiffness. Skin: Negative for rash. Neurological: Positive for dizziness. Negative for facial asymmetry, speech difficulty and headaches. Psychiatric/Behavioral: Negative for confusion, hallucinations and suicidal ideas. PAST HISTORY Pertinent Past History: Past Medical History: Diagnosis Date Bipolar 1 disorder ([facility]) Homeless Thoracic aortic aneurysm ([facility]) Patient Active Problem List: BPPV (benign paroxysmal positional vertigo) [H81.10] Vestibular neuritis [H81.20] Bipolar disorder ([facility]) [F31.9] Essential hypertension [I10] Paresthesia [R20.2] Homeless [Z59.00] Pulmonary embolism ([facility]) [I26.99] Aneurysm of thoracic aorta ([facility]) [I71.20] Anxiety [F41.9] Renal artery stenosis ([facility]) [I70.1] Pertinent Social History: Social History Tobacco Use Smoking status: Every Day Smokeless tobacco: Never Vaping Use Vaping Use: Never used Substance Use Topics Alcohol use: Yes Drug use: Never PHYSICAL EXAM BP 118/69 Pulse 71 Temp 98.7 F (37.1 C) (Temporal) Resp 18 SpO2 96% Physical Exam Vitals and nursing note reviewed. Constitutional: General: He is not in acute distress. Appearance: He is not ill-appearing, toxic-appearing or diaphoretic. HENT: Head: Normocephalic and atraumatic. Right Ear: Tympanic membrane, ear canal and external ear normal. Left Ear: Tympanic membrane, ear canal and external ear normal. Nose: Nose normal. Mouth/Throat: Mouth: Mucous membranes are moist. Pharynx: Oropharynx is clear. Eyes: Extraocular Movements: Extraocular movements intact. Conjunctiva/sclera: Conjunctivae normal. Pupils: Pupils are equal, round, and reactive to light. Cardiovascular: Rate and Rhythm: Normal rate and regular rhythm. Heart sounds: Normal heart sounds. No murmur heard. Pulmonary: Effort: Pulmonary effort is normal. No respiratory distress. Breath sounds: Normal breath sounds. Abdominal: General: Abdomen is flat. There is no distension. Tenderness: There is no abdominal tenderness. Musculoskeletal: General: No swelling or tenderness. Normal range of motion. Cervical back: Normal range of motion. No rigidity. Right lower leg: No edema. Left lower leg: No edema. Lymphadenopathy: Cervical: No cervical adenopathy. Skin: General: Skin is warm and dry. Capillary Refill: Capillary refill takes less than 2 seconds. Neurological: General: No focal deficit present. Mental Status: He is alert and oriented to person, place, and time. MEDICAL DECISION MAKING and ED COURSE EMERGENCY DEPARTMENT EKG INTERPRETATION Rhythm: Normal sinus rhythm Rate: 69 NORMAL Normal conduction / intervals Left ventricular hypertrophy by voltage criteria Early repolarization Comparison to prior: 05/20/2021 Impression: Normal sinus rhythm, LVH, early repolarization unchanged Personally reviewed and interpretated by Riley Crawford MD Course: ED Course as of 05/30/231718 [facility] May 30, 2023 171 Patient is smiling, has been cooperative, not voicing any acute psychiatric complaints. Deniesbeing depressed suicidal or hallucinating. Advised to avoid alcohol. His neurologic exam is nonfocal. He has no headache. His gait is stable. He is stable for discharge. Recommended follow up with primary care this week. [GE] 1715 Patient states that he will take the bus home. [GE] 1716 Leukopenia anemia appear to be chronic. [GE] ED Course User Index [GE] Riley Crawford MD Assessment & Plan: Stable vitals stable exam stable gait no dizziness at this time. No headache. No chest pain. IMPRESSION AND DISPOSITION Clinical Impression Diagnosis Comment Dizziness [R42] Disposition: Home The patient has received a medical screening examination and within reasonable clinical confidence an emergency medical condition was identified and has been stabilized. Counseling: Spoke with the patient and discussed today s findings, in addition to providing specific details for the plan of care and expected course. They were given the opportunity to ask questions. Discussed return precautions and importance of follow-up. Advised to follow-up with PCP. Advised to return to the ED for changing or worsening symptoms, new symptoms, complaint specific precautions, and precautions listed on the discharge paperwork. Riley Crawford MD [id number] Emergency department Note* Riley Crawford MD - 05/30/2023 1:58 PM EDT EMERGENCY DEPARTMENT - VISIT NOTE HISTORY OF PRESENT ILLNESS Chief Complaint Patient presents with Dizziness Dizziness upon standing Escort Patients: not needed - patient preferred language is Zimbabwean. 52-year-old male was apparently on a park bench and called for EMS for dizziness. [facility] I asked what he was doing there and he states that he was hiking . However he is accompanied by a huge bag full of his belongings. I asked where he lives or if he has a homeand he states that he lives in [place]. Yesterday he was seen at 3 different [facility] Emergency department's, the 1st time at [facility] where he apparently was acting unruly at a gas stationand ended up signing out AMA. He was then seen at [facility] for dark stools and palpitations and was treated and released and finally he was evaluated at [facility] and treated and released. Indeed he has had at least 2 other ER visits to other facilities in the last 10 days. Patient states thathe feels dizzy when he stands. No headache chest pain or abdominal pain. No vomiting or diarrhea. He feels like he maybe dehydrated. He states that he had to beers earlier today as well as a cup ofcoffee which can act as a vasoconstrictor History provided by: PatientLanguage film archivist used: No REVIEW OF SYSTEMS Review of Systems Constitutional: Negative for fever. HENT: Negative for facial swelling. Eyes: Negative for redness. Respiratory: Negative for cough and shortness of breath. Gastrointestinal: Negative for diarrhea and vomiting. Genitourinary: Negative for flank pain. Musculoskeletal: Negative for neck stiffness. Skin: Negative for rash. Neurological: Positive for dizziness. Negative for facial asymmetry, speech difficulty and headaches. Psychiatric/Behavioral: Negative for confusion, hallucinations and suicidal ideas. PAST HISTORY Pertinent Past History: Past Medical History: Diagnosis Date Bipolar 1 disorder ([facility]) Homeless Thoracic aortic aneurysm ([facility]) Patient Active Problem List: BPPV (benign paroxysmal positional vertigo) [H81.10] Vestibular neuritis [H81.20] Bipolar disorder ([facility]) [F31.9] Essential hypertension [I10] Paresthesia [R20.2] Homeless [Z59.00] Pulmonary embolism ([facility]) [I26.99] Aneurysm of thoracic aorta ([facility]) [I71.20] Anxiety [F41.9] Renal artery stenosis ([facility]) [I70.1] Pertinent Social History: Social History Tobacco Use Smoking status: Every Day Smokeless tobacco: Never Vaping Use Vaping Use: Never used Substance Use Topics Alcohol use: Yes Drug use: Never PHYSICAL EXAM BP 118/69 Pulse 71 Temp 98.7 F (37.1 C) (Temporal) Resp 18 SpO2 96% Physical Exam Vitals and nursing note reviewed. Constitutional: General: He is not in acute distress. Appearance: He is not ill-appearing, toxic-appearing or diaphoretic. HENT: Head: Normocephalic and atraumatic. Right Ear: Tympanic membrane, ear canal and external ear normal. Left Ear: Tympanic membrane, ear canal and external ear normal. Nose: Nose normal. Mouth/Throat: Mouth: Mucous membranes are moist. Pharynx: Oropharynx is clear. Eyes: Extraocular Movements: Extraocular movements intact. Conjunctiva/sclera: Conjunctivae normal. Pupils: Pupils are equal, round, and reactive to light. Cardiovascular: Rate and Rhythm: Normal rate and regular rhythm. Heart sounds: Normal heart sounds. No murmur heard. Pulmonary: Effort: Pulmonary effort is normal. No respiratory distress. Breath sounds: Normal breath sounds. Abdominal: General: Abdomen is flat. There is no distension. Tenderness: There is no abdominal tenderness. Musculoskeletal: General: No swelling or tenderness. Normal range of motion. Cervical back: Normal range of motion. No rigidity. Right lower leg: No edema. Left lower leg: No edema. Lymphadenopathy: Cervical: No cervical adenopathy. Skin: General: Skin is warm and dry. Capillary Refill: Capillary refill takes less than 2 seconds. Neurological: General: No focal deficit present. Mental Status: He is alert and oriented to person, place, and time. MEDICAL DECISION MAKING and ED COURSE EMERGENCY DEPARTMENT EKG INTERPRETATION Rhythm: Normal sinus rhythm Rate: 69 NORMAL Normal conduction / intervals Left ventricular hypertrophy by voltage criteria Early repolarization Comparison to prior: 05/20/2021 Impression: Normal sinus rhythm, LVH, early repolarization unchanged Personally reviewed and interpretated by Riley Crawford MD Course: ED Course as of 05/30/23 1719 [facility] May 30, [id number] Patient is smiling, has been cooperative, not voicing any acute psychiatric complaints. Deniesbeing depressed suicidal or hallucinating. Advised to avoid alcohol. His neurologic exam is nonfocal. He has no headache. His gait is stable. He is stable for discharge. Recommended follow up with primary care this week. [GE] 1715 Patient states that he will take the bus home. [GE] 1716 Leukopenia anemia appear to be chronic. [GE] ED Course User Index [GE] Riley Crawford MD Assessment & Plan: Stable vitals stable exam stable gait no dizziness at this time. No headache. No chest pain. IMPRESSION AND DISPOSITION Clinical Impression Diagnosis Comment Dizziness [R42] Disposition: Home The patient has received a medical screening examination and within reasonable clinical confidence an emergency medical condition was identified and has been stabilized. Counseling: Spoke with the patient and discussed today s findings, in addition to providing specific details for the plan of care and expected course. They were given the opportunity to ask questions. Discussed return precautions and importance of follow-up. Advised to follow-up with PCP. Advised to return to the ED for changing or worsening symptoms, new symptoms, complaint specific precautions, and precautions listed on the discharge paperwork. Riley Crawford MD documented in this [id number] Hospital Discharge instructions ED Discharge Education Evaluation from 05/11/2023 7:55 PM: * Discharge Instruction : Reviewed Discharge Instructions with Patient/Significant Other,Patient/Significant Other Verbalized Understanding of Discharge Instructions * Educ Topic #1 : Self Care * Barriers to Learning : No Barriers * Teaching Method : Discuss * Evaluation Method : Verbal,Written Patient Transfer Information from 05/11/2023 3:04 PM: * LOC : Alert Physician Follow-up Plan/Appointments from 05/11/2023 7:04 PM: * Patient stated Primary Care Provider : Viral Amado (PCP) ([facility] [id number]) - Internal Medicine, Physician [facility] 08-19-2023 NotePROCEDURE: CHEST 2 VIEW - WXR 0020 REASON FOR EXAM: Palpitations RESULT: Patient Name: HOSEA ALVAREZ STUDY: CHEST 2 VIEW 05/11/2023 3:46 pm INDICATION: Palpitations COMPARISON: 01/29/2023 ACCESSION NUMBER(S): [id number] ORDERING CLINICIAN: THALIA ROBERTO TECHNIQUE: Two views chest FINDINGS: Cardiomediastinal silhouette is mildly enlarged. Aorta is tortuous. No infiltrate or effusion identified. Mild multilevel anterior osteophyte formation midthoracic spine. No compression deformity demonstrated. IMPRESSION: No acute cardiopulmonary process. Dictation workstation: [id number] Original Interpreting Physician: TARAN PINA MD Original Transcribed by/Date: MMODAL May 11 2023 3:18P Original Electronically Signed by/Date: TARAN PINA MD May 11 2023 3:59P Addendum Interpreting Physician: Addendum Transcribed by/Date: NO ADDENDUM Addendum Electronically Signed by/Date: SYNGO [id number] History of Present illness Narrative* Saima Mattson - 02/01/2023 4:28 PM EDT CLINICAL PHARMACY NOTE: MEDS TO BEDS Total # of Prescriptions Filled: 3 The following medications were delivered to the patient: Docusate 100mg Polyeth glyc powder Lidocaine soln Additional Documentation: Picked up by Annette Olmos documented in this encounterBON [facility] Phone: 1(232) 325-292105-03-2023 Hospital Discharge instructions ED Discharge Education Evaluation from 01/22/2023 10:31 PM: * Discharge Instruction : Patient/Significant Other Verbalized Understanding of Discharge Instructions,Reviewed Discharge Instructions with Patient/Significant Other,Prescriptions(s) with Medication Education Including Indication & Side Effects Provided to Patient/Siginificant Other,Patient/Significant Other Received Written Instructions * Educ Topic #1 : Disease Specific * Barriers to Learning : No Barriers * Teaching Method : Discuss * Evaluation Method : Verbal,Written Patient Transfer Information from 01/22/2023 6:42 PM: * LOC : Alert Physician Follow-up Plan/Appointments from 01/22/2023 6:42 PM: * Patient stated Primary Care Provider : Viral Amado (PCP) ([facility] [id number]) - Internal Medicine, Physician [facility] 04-24-2023 NoteED Nursing Discharge Summary Entered On: 01/14/2023 11:09 EDT Performed On: 01/14/2023 11:05 EDT by Kaleigh Sanchez RN DC Information [id number] ED IV's : No IV ED IV Site Assessment : No IV ED Vitals Completed : Yes ED Final Assessment Completed : Yes ED Progress Note Completed : Yes Complete all PRN/Pain response forms? : N/A ED Disassociate Patient from Monitor : Yes Updated Depart Time : Yes ED Belongings sent w patient [id number] : Not applicable Kaleigh Sanchez RN - 01/14/2023 11:09 EDT Education Instructions given to : Patient TeachBack Methodology : TeachBack, Explanation, Printed Material Barriers to Learning : None evident Kaleigh Sanchez RN - 01/14/2023 11:09 EDT Post-Hospital Education Adult Grid Activity Expectations : Verbalizes understanding Importance of Follow-Up Visits : Verbalizes understanding Plan of Care : Verbalizes understanding When to Call Health Care Provider : Verbalizes understanding Kaleigh Sanchez RN - 01/14/2023 11:09 EDT Medication Education Adult Grid Drug to Drug Interactions : Verbalizes understanding Med Dosage, Route, Scheduling : Verbalizes understanding Med Generic/Brand Name, Purpose, Action : Verbalizes understanding Safety, Medication : Verbalizes understanding Kaleigh Sanchez RN - 01/14/2023 11:09 EDT ED Assistance Summary Assistance Given? : Yes Assisted with Social/Ancillary Services : Yes Kaleigh Sanchez RN - 01/14/2023 11:09 EDT [facility]04-01-2022 Miscellaneous Notes* Telephone Encounter - Tere Parker - 12/22/2021 12:00 PM EDT Patient phones requesting refills as follows: Pending Prescriptions Disp Refills METOPROLOL TARTRATE 25 MG TABLET 90 tablet 5 Sig: Take one pill twice a day and may take additional pill as needed JOSE: No Please review and advise. Tere Parker [facility] NoteChart Update Nutrition Services Assistant received an email communication from Dr. Viral Amado explaining that patient is currently in NH receiving treatment there. Nutrition Services Assistant agreed to contact compliance review specialist with whom patient has beencommunicating to inform her of this change in treatment. Nutrition Services Assistant to follow up next week. Signatures Electronically signed by : STONE Trent; Oct 27 2021 3:29PM EST (Author) [id number] Hospital Discharge instructions Patient Transfer Information from 08/22/2021 5:21 PM: * LOC : Alert [facility] 11-24-2021 Hospital Discharge instructions ED Discharge Education Evaluation from 08/16/2021 2:48 PM: * Discharge Instruction : Patient/Significant Other Verbalized Understanding of Discharge Instructions,Reviewed Discharge Instructions with Patient/Significant Other,Patient/Significant Other Received Written Instructions * Educ Topic #1 : Disease Specific * Barriers to Learning : No Barriers * Teaching Method : Audiovisual * Evaluation Method : Verbal Patient Transfer Information from 08/16/2021 9:38 AM: * LOC : Alert Physician Follow-up Plan/Appointments from 08/16/2021 2:36 PM: * Patient stated Primary Care Provider : Viral Amado (PCP) ([facility] 6[facility]) - Internal Medicine, Physician [facility] 11-20-2021 History of Present illness NarrativeMr. Alvarez is seen as a new patient to our practice. He has seen previous cardiologists with dismissal from offices. He is seen today in collaboration with Dr. Carvajal. Mr. Alvarez has a medical history significant for thoracic aortic aneurysm (CT angio 08/12/2021 5 cm max caliber slightly increased from prior studies of 4.4-4.6 depending on modality), hypertension with left ELIANA (CT abdomen demonstrates 70-90% narrowing), PE in the setting of Covid infection treated 1 month with Eliquis due to reported GI bleed and palpitations. He presents endorsing cardiology and vascular surgery visits in [place], [place] and [place] over the past 1 year. He has had multiple ED visits and some hospitalizations with various and duplicate testing. He most recently reports going to the [facility] for aCT to evaluate his aorta. He notes compliance with medication although is taking Clonidine 'like candy and has run out of Losartan about 3 day ago. 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 He notes some atypical and nonexertional chest pain and occasional palpitations and is requesting several tests. He is active and rides his bicycle for exercise and as his mode of transportation. He denies any symptoms specific to activity. The patient denies any shortness of breath, PND, orthopnea, lightheadedness, syncope, lower extremity edema or bleeding problems.[facility] Work Phone: 1(452) 772-538611-14-2021 Hospital Discharge instructions ED Discharge Education Evaluation from 08/06/2021 1:33 PM: * Discharge Instruction : Reviewed Discharge Instructions with Patient/Significant Other,Patient/Significant Other Verbalized Understanding of Discharge Instructions,Patient/Significant Other Received Written Instructions * Educ Topic #1 : Disease Specific * Barriers to Learning : No Barriers * Teaching Method : Discuss * Evaluation Method : Verbal Patient Transfer Information from 08/06/2021 11:11 AM: * LOC : Alert [facility] 11-05-2021 Hospital Discharge instructions ED Discharge Education Evaluation from 07/28/2021 10:06 AM: * Discharge Instruction : Patient/Significant Other Received Written Instructions,Prescriptions(s) with Medication Education Including Indication & Side Effects Provided to Patient/Siginificant Other,Reviewed Discharge Instructions with Patient/Significant Other,Patient/Significant Other Verbalized Understanding of Discharge Instructions * Educ Topic #1 : Medication * Barriers to Learning : No Barriers * Teaching Method : Reading Materials * Evaluation Method : Written Patient Transfer Information from 07/28/2021 7:56 AM: * LOC : Alert Physician Follow-up Plan/Appointments from 07/28/2021 8:20 AM: * Patient stated Primary Care Provider : [facility] 11-03-2021 Hospital Discharge instructions Patient Transfer Information from 07/26/2021 3:16 PM: * LOC : Alert [facility] 10-22-2021 Hospital Discharge instructions Patient Transfer Information from 07/14/2021 12:20 PM: * LOC : Alert Physician Follow-up Plan/Appointments from 07/14/2021 12:20 PM: * Patient stated Primary Care Provider : [facility] 10-21-2021 Hospital Discharge instructions Patient Transfer Information from 07/13/2021 3:40 PM: * LOC : [facility] 10-20-2021 Hospital Discharge instructions ED Discharge Education Evaluation from 07/11/2021 11:40 PM: * Discharge Instruction : Patient/Significant Other Received Written Instructions,Patient/SignificantOther Verbalized Understanding of Discharge Instructions,Reviewed Discharge Instructions with Patient/Significant Other * Educ Topic #1 : Disease Specific * Barriers to Learning : No Barriers * Teaching Method : Reading Materials * Evaluation Method : Written Patient Transfer Information from 07/11/2021 6:30 PM: * LOC : Alert Physician Follow-up Plan/Appointments from 07/11/2021 6:30 PM: * Patient stated Primary Care Provider : PCP, Other (PCP) ([facility] [id number]) - Medical [facility] 10-18-2021 Hospital Discharge instructions Patient Transfer Information from 07/10/2021 12:01 PM: * LOC : [facility] 10-18-2021 History of Present illness Narrative* HOSEA ALVAREZ presents with complaints of back pain, described as sharp. On a scale of 1 to 10, the patient rates the pain as 8. Symptoms are unchanged. * Associated symptoms include no spasm, no stiffness, no fever, no night sweats, no abdominal pain, no general malaise, no arm numbness, no leg numbness, no arm weakness, no leg weakness, no urinary incontinence and no urinary retention. * Patient with history of bipolar disorder, thoracic aortic aneurysm, hypertension, renal artery stenosis, alcohol abuse, pulmonary embolism presents to [facility] urgent care for 8/10 left scapular pain. Pain started about 1 hour ago. It has only been in the back. No chest pain, shortness of breath,arm, jaw or shoulder pain, vision changes, fatigue, dyspnea on exertion, headache. He went to [facility] today for evaluation but states his wait time exceeded his expectations to he left and came hereto urgent care. * PMHx includes he was admitted for chest pain 07-05 at [facility]. He had some increased troponin elevation and was treated as an NSTEMI and heparinized. He had a unchanged EKG compared to previous. He had a normal ejection fracture and moderate ascending aortic dilation on echo. Unchanged CT chest definining his aortic anerysm at 1.4cm as stable. It was recommended to have a cardiac cath butpatient declined at that time. His troponin was trending downward and he was discharged to follow up with cardiology. * Patient up has appointment with Dr. Beckford, his electrical software engineer tomorrow. [facility] Work Phone: 1(172) 684-953910-13-2021 NoteSend Summary: Discharge Summary Providers: Provider RoleProvider Name Santa Hurtado Daniel R ConsultingJosh juarez Joel Note Recipients: Viral Amado DO - [id number] [Preferred] Discharge: Summary: Admission Date: .05-Jul-2021 01:00:00 Discharge Date: 05-Jul-2021 Attending Physician at Discharge: Elgin Lambert Admission Reason: Atypical chest pain, palpitations(1) Final Discharge Diagnoses: Elevated troponin level Procedures: none Condition at Discharge: Satisfactory Disposition at Discharge: .Home Vital Signs: T PRBPSpO2 [id number]/8695% Date/Time07/05 5:161 5: 5: 8: 5:16 Range(36.6C - 36.7C ) (57 - 67 ) (16 - 16 ) (124 - 137 )/ (73 - 86 ) (94% - 95% ) Date: Weight/Scale Type:Height: 05-Jul-2021 01:5386.4 kg / jamzdrif474.1 cm Physical Exam: Physical Exam on day of Discharge: Constitutional: alert and oriented x 3, awake, cooperative, no acute distress Skin: warm and dry Head/Neck: Normocephalic, atraumatic, neck supple Eyes: EOMI, clear sclera ENMT: mucous membranes moist Cardio: Regular rate and rhythm, no murmurs noted Resp: CTA bilaterally, good respiratory effort, no wheezing or rhonchi noted Gastrointestinal: Soft, nontender, positive BS x 4 quadrants Musculoskeletal: ROM intact, no joint swelling Extremities: No edema, cyanosis or clubbing Neuro: CN 2-12 grossly intact, alert and oriented x 3 Psychological: tangential, poor concentration Hospital Course: HOSEA ALVAREZ is a 50 year old Male with a hx of bipolar disorder, thoracic aortic aneurysm, HTN, ELIANA, alcohol abuse, who was admitted as a transfer for chest pain on 07/05. Story of his chest pain seem to change frequently; he reported to me he was having back pain. Told the ER doctor he was having chest discomfort while riding his bike, and told the cardiology team he was having no pain or symptoms at all. On admission he reported all of his symptoms had resolved. In the ED troponin increased to 0.7. EKG without acute changes, but found to have V1 and V3 T wave inversions, that were present on old EKGs. Echo done which showed normal EF and moderate ascending aortic dilation. Pt refused any further workup reporting he can get it all done with his outpatient electrical software engineer. He was discharged to home in stable condition. Troponin down-trending to 0.1. He will follow up with his PCP. He was prescribed baby aspirin and 40mg atorvastatin. Greater than 35 minutes was spent in coordinating care for discharge today. Discharge Information: and Continuing Care: Lab Results - Pending: None Radiology Results - Pending: None Discharge Instructions: Aspirin 81mg daily Atorvastatin 40mg daily Follow up with your electrical software engineer Discharge Medications: Home Medication losartan 50 mg oral tablet - 1 tab(s) orally once a day cloNIDine 0.1 mg oral tablet - 1 tab(s) orally once a day, metoprolol succinate 25 mg oral tablet, extended release - 1 tab(s) orally once a day aspirin 81 mg oral tablet, chewable - 1 tab(s) chewed once a day atorvastatin 40 mg oral tablet - 1 tab(s) orally once a day PRN Medication Electronic Signatures: Elgin Lambert () (Signed 05-Jul-2021 20:45) Authored: Send Summary, Summary Content, Ongoing Care, Note Completion Last Updated: 05-Jul-2021 20:45 by Elgin Lambert () References: 1. Data Referenced From Consult-Cardiology 05-Jul-2021 11:35[facility]10-13-2021 NoteHistory of Present Illness: HPI: HOSEA ALVAREZ is a 50 year old Male with a hx of bipolar disorder, thoracic aortic aneurysm, HTN, ELIANA, alcohol abuse, who was admitted as a transfer for chest pain. Pt is a very difficult historian as he is very tangential and cannot answer direct questions. Apparently he began having back pain yesterday. [place] and [place] them, and was brought to an outside hospital where troponin was elevated. He was started on a heparin drip and sent to [place] for cardiology evaluation. He denies shortness of breath, light-headedness/dizziness, abdominal pain, nausea/vomiting. He does report being very constipated and thinks that is why he is having the pain. He denies a history of CAD, but thinks he had a vegetation on a heart valve about a year ago which was treated with oral abx. At this time he denies any chest or back pain, and reports symptoms have all resolved. Prior to my seeing him he asked the bedside nurse if he could leave the hospital, as he is concerned about being exposed to COVID. I discussed the option of leaving against medical advice, explained the risks associated with leaving AMA without proper evaluation and treatment. He is considering leaving AMA but wanted to call his cardiologists office at [place] first. Although he does have a hx of bipolar disorder and is a difficult patient to interact with, he does appear to have appropriate comprehension of his medical problems and is capable of making his own informed medical decisions. Therefore if he decides to leave against medical advice he would be able to do so. PMHx: thoracic aortic aneurysm, bipolar disorder, renal artery stenosis, HTN, alcohol abuse, prior smoker SHx: hemorrhoid surgery FamHx: denies SocHx: former smoker, frequent binge drinking / heavy alcohol use, denies illicit drug use ROS: A full 10-point ROS was completed and is negative except as noted above in the HPI. Comorbidities: Comorbidites: Comorbid Conditionshypertension Family History: No family history of coronary artery disease: No family history of cancer: Social History: Social History: Smoking Statusoccasional user (use that is infrequent, sporadic, not on a daily basis) (1) Alcohol Useoccasionally(1) Drug Usedenies (1) Drug 2 Usedenies (1) Allergies: Erythromycin Base: Unknown caffine: Other Cipro: Unknown Intolerances: polyethylene glycol 3350: GI Upset Medications Prior to Admission: losartan 50 mg oral tablet: 1 tab(s) orally once a day cloNIDine 0.1 mg oral tablet: 1 tab(s) orally once a day, metoprolol succinate 25 mg oral tablet, extended release: 1 tab(s) orally once a day. Objective: Objective Information: T PRBPSpO2 [id number]/8695% Date/Time07/05 5: 5: 5: 8: 5:16 Range(36.6C - 36.7C ) (57 - 67 ) (16 - 16 ) (124 - 137 )/ (73 - 86 ) (94% - 95% ) Pain reported at 07/05 8:28: 0 = None Physical Exam by System: Constitutional: Well developed, awake/alert/oriented x3, no distress, alert and cooperative Eyes: PERRL, EOMI, clear sclera ENMT: mucous membranes moist, no apparent injury, no lesions seen Head/Neck: Neck supple, no apparent injury Respiratory/Thorax: Patent airways, CTAB b/l without wheezes or rhonchi Cardiovascular: Regular, rate and rhythm, no murmurs, 2+ equal pulses of the extremities, normal S 1and S 2 Gastrointestinal: Nondistended, soft, non-tender, no rebound tenderness or guarding, no masses palpable, no organomegaly, +BS, no bruits Musculoskeletal: ROM intact, no joint swelling, normal strength Extremities: normal extremities, no cyanosis edema, contusions or wounds, no clubbing Neurological: alert and oriented x3, intact senses, motor, response and reflexes, normal strength Psychological: tangential, calm speech, easily distracted but re-orients easily Skin: Warm and dry, no lesions, no rashes Medications: Medications: Continuous Medications 1. Heparin 25,000 units/ D5W 250 mL Infusion: 1000 units/hr IntraVenous Scheduled Medications 1. cloNIDine (CATAPRES): 0.1 mg Oral Daily 2. Heparin (Repeat Bolus) Injectable: 4000 unit(s) IntraVenous Push Every 4 Hours 3. Losartan: 50 mg Oral Daily 4. Metoprolol Succinate Extended Release: 25 mg Oral Daily PRN Medications 1. Melatonin: 3 mg Oral At Bedtime Conditional Medication Orders 1. Perflutren Lipid Microsphere (Activated) 1.3 mL / NaCL 0.9% T.V. 10 mL Injectable: 0.5 mL IntraVenous Push Once Recent Lab Results: Results: CBC: 07/05/2021 09:28 \ Hgb / \ 13.3 L / WBC Plt 3.0 L 137 L / Hct \ / 41.1 \ RBC: 4.74 MCV: 87 Neutrophil %: 59.3 BMP: 07/05/2021 09:28 NA+ Cl (more content not included)...[facility]09-29-2021 Note UHFFLREFN_1st 6 Month Referral 6 YyoVB-Biwekldyszugagau-Tsrtvgs 6 [facility] Work Phone: [phone] NoteUHFFLVN1 of 6 Visits-Max 6 Visits/Referral Each 6 Mo DqetbwWN-Ovoytketsbtixggv-Zfmdpnd 6 [facility] Work Phone: [phone] [facility], will task once department is set up with [address] Work Phone: [phone] NoteUHFFLREFN_1st 6 Month [address]erral [address] [place] [address] Work Phone: [phone] NoteUHFFLVN1 of 6 Visits-Max 6 Visits/Referral [facility] Phone: [phone] [facility], will task MD once department is set up with [facility] Work Phone: [phone] NoteUHFFLREFN_1st 6 Month Referral 6 [address] Work Phone: [phone] NoteUHFFLVN1 of 6 Visits-Max 6 Visits/Referral Each 6 Mo [address] Work Phone: [phone] NoteUHFFLOSCMC- no referral yet, will task MD once department is set up with [facility] Work Phone: [phone] NoteUHFFLREFN_1st 6 Month Referral 6 [facility]- [facility] Work Phone: [phone] NoteUHFFLVN1 of 6 Visits-Max 6 Visits/Referral Each 6 Mo Period-[facility] Work Phone: [phone] NoteUHFFLOSC- no referral yet, will task MD [facility] Work Phone: [phone] NoteUHFFLREFN_1st 6 Month Referral 6 [facility] [address] Work Phone: [phone] NoteUHFFLVN1 of 6 Visits-Max 6 Visits/Referral Each 6 Mo PeriodMG-[facility] [address] Work Phone: [phone] NoteUHFFLOSC- no referral yet, will task MD once department is set up with [facility] [address] Work Phone: [phone] NoteUHFFLREFN_1st 6 Month Referral 6 [facility]- [facility] [address] Work Phone: [phone] NoteUHFFLVN1 of 6 Visits-Max 6 Visits/Referral Each 6 Mo PeriodMG-[facility] [address] Work Phone: [phone] NoteUHFFLOSCMC- no referral yet, will task MD once department is set up with [facility] [address] Work Phone: [phone] NoteUHFFLREFN_1st 6 Month Referral 6 Mos HZ-[facility] Work Phone: [phone] NoteUHFFLVN1 of 6 Visits-Max 6 Visits/Referral Each 6 Mo CjnsbnGT-Qxvicyftwk-Wqzteed [address] Work Phone: [phone] NoteUHFFLOSC- no referral yet, will task MD once department is set up with fnDS-Wzisftqgdc-Qmvfvcy [address] Work Phone: [phone] NoteUHFFLREFN_1st 6 Month Referral 6 [facility] Work Phone: [phone] NoteUHFFLVN1 of 6 Visits-Max 6 Visits/Referral Each 6 Mo PeriodMP-[facility] Work Phone: [phone] NoteUHFFLOSCMC- no referral yet, will task MD once department is set up with [facility] Work Phone: [phone] NoteUHFFLREFN_1st 6 Month Referral 6 Mos WH-Ihautosiez[address] Work Phone: [phone] NoteUHFFLVN1 of 6 Visits-Max 6 Visits/Referral Each 6 Mo JgisdqWP-Pbacgaylwm-Sfqofh [address] Work Phone: [phone] NoteUHFFLOSCMC- no referral yet, will task MD once department is set up with rsNP-Tuegbkgykw-[address] Work Phone: [phone] NoteUHFFLREFN_1st 6 Month Referral 6 Mos LZ-Nvcentxtzs-Svbpgqn [address] Work Phone: [phone] NoteUHFFLVN1 of 6 Visits-Max 6 Visits/Referral Each 6 Mo SxzhlaFM-Wkemonqgms-Fbmgesh [address] Work Phone: [phone] [facility]- no referral yet, will task MD once department is set up with nxXV-Atxntmaxbl-E[facility] [place] [facility] Work Phone: [phone] Hospital Discharge instructions ED Discharge Education Evaluation from 06/20/2021 9:14 AM: * Discharge Instruction : Patient/Significant Other Verbalized Understanding of Discharge Instructions,Patient/Significant Other Received Written Instructions,Reviewed Discharge Instructions with Patient/Significant Other * Educ Topic #1 : Disease Specific * Barriers to Learning : No Barriers * Teaching Method : Discuss,Reading Materials * Evaluation Method : Written,Verbal Patient Transfer Information from 06/20/2021 7:11 AM: * LOC : Alert Physician Follow-up Plan/Appointments from 06/20/2021 8:31 AM: * Patient stated Primary Care Provider : PCP, Other (PCP) ([id number] [id number]) - Medical [facility] 09-27-2021 History of Present illness Narrative* yesterday, new pain in the left lower and right lower back * history of renal artery stenosis * no injury * hurts to move, worse with standing and walking * no numbness, tingling or weakness in the legs * pressure on the left side * soon scheduled for panendoscopy, * has a known thoracic aneurysm * no frequency or urgency of urination * not losing control of urination * previously BP on right and left arm has been even * aneurysm has been stable up until now * had heart palpitations this afternoon, took a nitro due to pain under the left arm * also took metoprolol and clonidine, extra [facility] Work Phone: [phone] Hospital Discharge instructions Patient Transfer Information from 06/19/2021 4:16 PM: * LOC : Alert Physician Follow-up Plan/Appointments from 06/19/2021 4:16 PM: * Patient stated Primary Care Provider : PCP, Other (PCP) ([id number]) - Medical [facility] 09-26-2021 Hospital Discharge instructions ED Discharge Education Evaluation from 06/18/2021 6:03 AM: * Discharge Instruction : Reviewed Discharge Instructions with Patient/Significant Other,Patient/Significant Other Received Written Instructions,Patient/Significant Other Verbalized Understanding of Discharge Instructions * Educ Topic #1 : Disease Specific * Barriers to Learning : No Barriers * Teaching Method : Reading Materials * Evaluation Method : Written,Verbal Patient Transfer Information from 06/18/2021 3:32 AM: * LOC : Alert Physician Follow-up Plan/Appointments from 06/18/2021 5:00 AM: * Patient stated Primary Care Provider : PCP, Other (PCP) (MSI [id number]) - [facility] 09-20-2021 Hospital Discharge instructions ED Discharge Education Evaluation from 06/12/2021 4:10 PM: * Discharge Instruction : Reviewed Discharge Instructions with Patient/Significant Other,Patient/Significant Other Received Written Instructions,Patient/Significant Other Verbalized Understanding of Discharge Instructions * Educ Topic #1 : Disease Specific * Barriers to Learning : No Barriers * Teaching Method : Reading Materials * Evaluation Method : Verbal Patient Transfer Information from 06/12/2021 10:04 AM: * LOC : Alert Physician Follow-up Plan/Appointments from 06/12/2021 3:03 PM: * Patient stated Primary Care Provider : PCP, Other (PCP) ([facility] [id number]) - [facility] 08-24-2021 Hospital Discharge instructions ED Discharge Education Evaluation from 05/16/2021 5:10 PM: * Discharge Instruction : Patient/Significant Other Verbalized Understanding of Discharge Instructions,Reviewed Discharge Instructions with Patient/Significant Other * Educ Topic #1 : Disease Specific * Barriers to Learning : No Barriers * Teaching Method : Reading Materials * Evaluation Method : Verbal Patient Transfer Information from 05/16/2021 8:14 AM: * LOC : Alert Physician Follow-up Plan/Appointments from 05/16/2021 4:53 PM: * Patient stated Primary Care Provider : PCP, Other (PCP) (MSI [id number]) - [facility] 08-24-2021 Hospital Discharge instructions Physician Follow-up Plan/Appointments from 05/15/2021 10:37 PM: * Patient stated Primary Care Provider : PCP, Other (PCP) (MSI [id number]) - [facility] 08-18-2021 Hospital Discharge instructions Patient Transfer Information from 05/10/2021 2:05 PM: * LOC : Alert Physician Follow-up Plan/Appointments from 05/10/2021 2:05 PM: * Patient stated Primary Care Provider : PCP, Other (PCP) ([facility] 4593) - Medical [facility] 08-15-2021 Hospital Discharge instructions Patient Transfer Information from 05/07/2021 4:41 AM: * LOC : Alert [facility] 08-14-2021 Hospital Discharge instructions ED Discharge Education Evaluation from 05/06/2021 2:51 PM: * Discharge Instruction : Patient/Significant Other Received Written Instructions,Patient/SignificantOther Verbalized Understanding of Discharge Instructions,Reviewed Discharge Instructions with Patient/Significant Other * Educ Topic #1 : Disease Specific * Barriers to Learning : No Barriers * Teaching Method : Audiovisual * Evaluation Method : Verbal Patient Transfer Information from 05/06/2021 10:05 AM: * LOC : Alert Physician Follow-up Plan/Appointments from 05/06/2021 2:19 PM: * Patient stated Primary Care Provider : Catalino Murrieta MD ([id number]) - Internal Medicine [facility] 08-10-2021 Hospital Discharge instructions Patient Transfer Information from 05/02/2021 6:44 PM: * Pain Location #1 : right flank * Pain Rating : 5 Physician Follow-up Plan/Appointments from 05/02/2021 8:08 PM: * Patient stated Primary Care Provider : Catalino Murrieta MD ([id number]) - Internal Medicine [facility] 07-29-2021 NoteHistory & Physical Reviewed: I have reviewed the History and Physical dated: 12-Apr-2021 History and Physical reviewed and relevant findings noted. Patient examined to review pertinent physical findings.: No significant changes Home Medications Reviewed: no changes noted Allergies Reviewed: no changes noted ERAS (Enhanced Recovery After Surgery): ERAS Patient: no Consent: COVID-19 Consent: COVID-19 Risk ConsentSurgeon has reviewed liriano risks related to the risk of bronson COVID-19 and if they contract COVID-19 what the risks are. Attestation: Note Completion: I am a: Resident/Fellow Attending AttestationI saw and evaluated the patient. I personally obtained the liriano and critical portions of the history and physical exam or was physically present for liriano and critical portions performed by the resident/fellow. I reviewed the resident/fellows documentation and discussed the patient with the resident/fellow. I agree with the resident/fellows medical decision making as documented in the note. I personally evaluated the patient [id number] Electronic Signatures: Tay Lott) (Signed 20-Apr-2021 17:24) Authored: Note Completion Co-Signer: History & Physical Reviewed, ERAS, Consent, Note Completion River Hernandez (Resident)) (Signed 20-Apr-2021 06:45) Authored: History & Physical Reviewed, ERAS, Consent, Note Completion Last Updated: 20-Apr-2021 17:24 by Tay Lott)[facility] 04-18-2021 NoteSend Summary: Discharge Summary Providers: Provider RoleProvider Name AttendingCarlos Carrillo Joel Note Recipients: Viral Amado DO - [phone] [Preferred] Carlos Carrillo MD Discharge: Summary: Admission Date: .16-Apr-2021 21:21:00 Discharge Date: 17-Apr-2021 Attending Physician at Discharge: Carlos Carrillo Admission Reason: Atypical chest pain.(1) Final Discharge Diagnoses: Chest pain, ACS ruled out, known history of left renal artery stenosis, known history of ascending thoracic aneurysm, left hydroureter, bipolar disorder and hypertension Procedures: none Condition at Discharge: Fair Disposition at Discharge: .Home Vital Signs: T PRBPSpO2 [id number]/34197% Date/Time04/17 16:137 16:137 16:137 16:147 16:13 Range(36.4C - 36.9C ) (58 - 73 ) (16 - 19 ) (103 - 148 )/ (64 - 96 ) (97% - 100% ) Highest temp of 36.9 C was recorded at 04/17 8:16 Date: Weight/Scale Type:Height: 17-Apr-2021 04:2085.7 kg / btzwexcb507.1 cm Physical Exam: Please refer to detailed history and physical done on the same day of discharge. Hospital Course: History of Present Illness: Admission Reason: Atypical chest pain. HPI: HOSEA ALVAREZ is a 50 year old Male admitted from emergency room. Past medical history as mentioned below. Very difficult historian he keeps on changing his story every minute. And would introduce many times and difficult to get a good information from him. He stated that he had some right-sided chest pain and his right arm felt numb and he thinks he has a tumor which is compressing on his blood vessels and causing this discomfort. He is shopping around and has. Having his medical care between here in [place]. He said he has an appointment for GI endoscopy for May 17, 2021 . He has had multiple ER visits with vague symptoms. Patient is stated that he is scheduled to have a stent put in for renal artery stenosis next month. He stated that he is very hypertensive and he takes clonidine as and when necessary he had yesterday prior to coming here he took and clonidine for his high blood pressure and then he probably passed out. Although after close questioning he thinks that he did not pass out he was just sleeping and he called EMS. Story is very vague and does not fit in any kind of description. Currently he is fully awake and alert his blood pressures are stable his EKG reveals no acute ischemic changes and serum troponin is negative. He also thinks that he has some difficulty swallowing intermittently and therefore he is going to have an EGD as an outpatient April Past history: Bipolar disorder, hypertension, thoracic aortic aneurysm, renal artery stenosis, ex tobacco use, remote pulmonary embolism, COVID-19 in September 2020. Social history He lives by himself said he lives between here in [place] because of the medical care at 2 places, he quit his smoking, he does drink alcohol and beer every day. No illicit drugs. Family history of hypertension Surgical history noncontributory. Comorbidities: Comorbidites: Comorbid Conditionshypertension Past Medical/Surgical History: Medical History: Palpitations: Bipolar disorder: Ascending aortic aneurysm: History of COVID-19: Pulmonary embolism: Renal artery stenosis: Chest pain: Onset Date: 16-Feb-2020 Surg History: History of tooth extraction: Family History: No family history of coronary artery disease: No family history of cancer: Social History: Social History: Smoking Statusoccasional user (use that is infrequent, sporadic, not on a daily basis) (1) Alcohol Usedaily(1) Drug Usedenies (1) Drug 2 Usedenies (1) Allergies: Erythromycin Base: Unknown caffine: Other Cipro: Unknown Intolerances: polyethylene glycol 3350: GI Upset Medications Prior to Admission: cloNIDine 0.1 mg oral tablet: 1 tab(s) orally once a day, and As Needed for BP above 140/90 losartan 50 mg oral tablet: 1 tab(s) orally once a day metoprolol succinate 25 mg oral tablet, extended release: 1 tab(s) orally once a day pantoprazole 40 mg oral delayed release tablet: 1 tab(s) orally once a day. Review of Systems: Constitutional: NEGATIVE: Fever, Chills, Anorexia, Weight Loss, Malaise Eyes: NEGATIVE: Blurry Vision, Drainage, Diploplia, Redness, Vision Loss/ Change ENMT: NEGATIVE: Nasal Discharge, Nasal Congestion, Ear Pain, Mouth Pain, Throat Pain Respiratory: NEGATIVE: Dry Cough, Productive Cough, Hemoptysis, Wheezing, Shortness of Breath Cardiac: POSITIVE: Chest Pain; NEGATIVE: Dyspnea on Exertion, Orthopnea, Palpitations, Syncope Gastrointestinal: NEGATIVE: Nausea, Vomiting, Diarrhea, Constipation, Abdominal Pain; COMMENTS: Acid reflux Genitourinary: NEGATIVE: Discharge, Dysuria, Flank Pain, Frequency, Hematuria Musculoskeletal: NEGATIVE: Decreased ROM, Pain, Swelling, Stiffnes (more content not included)...[facility]07-26-2021 NoteHistory of Present Illness: Admission Reason: Atypical chest pain. HPI: HOSEA ALVAREZ is a 50 year old Male admitted from emergency room. Past medical history as mentioned below. Very difficult historian he keeps on changing his story every minute. And would introduce many times and difficult to get a good information from him. He stated that he had some right-sided chest pain and his right arm felt numb and he thinks he has a tumor which is compressing on his blood vessels and causing this discomfort. He is shopping around and has. Having his medical care between here in [place]. He said he has an appointment for GI endoscopy for May 17, 2021 . He has had multiple ER visits with vague symptoms. Patient is stated that he is scheduled to have a stent put in for renal artery stenosis next month. He stated that he is very hypertensive and he takes clonidine as and when necessary he had yesterday prior to coming here he took and clonidine for his high blood pressure and then he probably passed out. Although after close questioning he thinks that he did not pass out he was just sleeping and he called EMS. Story is very vague and does not fit in any kind of description. Currently he is fully awake and alert his blood pressures are stable his EKG reveals no acute ischemic changes and serum troponin is negative. He also thinks that he has some difficulty swallowing intermittently and therefore he is going to have an EGD as an outpatient April Past history: Bipolar disorder, hypertension, thoracic aortic aneurysm, renal artery stenosis, ex tobacco use, remote pulmonary embolism, COVID-19 in September 2020. Social history He lives by himself said he lives between here in [place] because of the medical care at 2 places, he quit his smoking, he does drink alcohol and beer every day. No illicit drugs. Family history of hypertension Surgical history noncontributory. Comorbidities: Comorbidites: Comorbid Conditionshypertension Past Medical/Surgical History: Medical History: Palpitations: Bipolar disorder: Ascending aortic aneurysm: History of COVID-19: Pulmonary embolism: Renal artery stenosis: Chest pain: Onset Date: 16-Feb-2020 Surg History: History of tooth extraction: Family History: No family history of coronary artery disease: No family history of cancer: Social History: Social History: Smoking Statusoccasional user (use that is infrequent, sporadic, not on a daily basis) (1) Alcohol Usedaily(1) Drug Usedenies (1) Drug 2 Usedenies (1) Allergies: Erythromycin Base: Unknown caffine: Other Cipro: Unknown Intolerances: polyethylene glycol 3350: GI Upset Medications Prior to Admission: cloNIDine 0.1 mg oral tablet: 1 tab(s) orally once a day, and As Needed for BP above 140/90 losartan 50 mg oral tablet: 1 tab(s) orally once a day metoprolol succinate 25 mg oral tablet, extended release: 1 tab(s) orally once a day pantoprazole 40 mg oral delayed release tablet: 1 tab(s) orally once a day. Review of Systems: Constitutional: NEGATIVE: Fever, Chills, Anorexia, Weight Loss, Malaise Eyes: NEGATIVE: Blurry Vision, Drainage, Diploplia, Redness, Vision Loss/ Change ENMT: NEGATIVE: Nasal Discharge, Nasal Congestion, Ear Pain, Mouth Pain, Throat Pain Respiratory: NEGATIVE: Dry Cough, Productive Cough, Hemoptysis, Wheezing, Shortness of Breath Cardiac: POSITIVE: Chest Pain; NEGATIVE: Dyspnea on Exertion, Orthopnea, Palpitations, Syncope Gastrointestinal: NEGATIVE: Nausea, Vomiting, Diarrhea, Constipation, Abdominal Pain; COMMENTS: Acid reflux Genitourinary: NEGATIVE: Discharge, Dysuria, Flank Pain, Frequency, Hematuria Musculoskeletal: NEGATIVE: Decreased ROM, Pain, Swelling, Stiffness, Weakness Neurological: NEGATIVE: Dizziness, Confusion, Headache, Seizures, Syncope Psychiatric: POSITIVE: Mood Changes, Anxiety; NEGATIVE: Hallucinations, Sleep Changes, Suicidal Ideas Skin: NEGATIVE: Mass, Pain, Pruritus, Rash, Ulcer Endocrine: NEGATIVE: Heat Intolerance, Cold Intolerance, Sweat, Polyuria, Thirst Hematologic/Lymph: NEGATIVE: Anemia, Bruising, Easy Bleeding, Night Sweats, Petechiae Allergic/Immunologic: NEGATIVE: Anaphylaxis, Itchy/ Teary Eyes, Itching, Sneezing, Swelling Breast: NEGATIVE: Gynecomastia Objective: Objective Information: T PRBPSpO2 [id number]/79759% Date/Time04/17 16: 16: 16: 16: 16:13 Range(36.4C - 36.9C ) (58 - 73 ) (16 - 19 ) (103 - 148 )/ (64 - 96 ) (96% - 100% ) Highest temp of 36.9 C was recorded at 04/17 8:16 Pain reported at 04/17 1:21: 0 = None Physical Exam by System: Constitutional: Awake and alert, looks well, no acute distress, very interactive and not focused. Eyes: PERRL, EOMI, clear sclera ENMT: mucous membranes moist, no apparent injury, no lesions seen Head/Neck: Neck supple, n (more content not included)...[facility] 04-11-2021 Hospital Discharge instructions ED Discharge Education Evaluation from 04/11/2021 7:52 PM: * Discharge Instruction : Patient/Significant Other Verbalized Understanding of Discharge Instructions,Reviewed Discharge Instructions with Patient/Significant Other,Prescriptions(s) with Medication Education Including Indication & Side Effects Provided to Patient/Siginificant Other,Patient/Significant Other Received Written Instructions * Educ Topic #1 : Medication * Barriers to Learning : No Barriers * Teaching Method : Audiovisual,Demonstration * Evaluation Method : Verbal,Written * Educ Topic # 2 : Disease Specific * Barriers to Learning : No Barriers * Teaching Method : Demonstration,Audiovisual * Evaluation Method : Verbal,Written Patient Transfer Information from 04/11/2021 4:06 PM: * LOC : Alert Physician Follow-up Plan/Appointments from 04/11/2021 7:14 PM: * Patient stated Primary Care Provider : PCP, Other (PCP) (XNF [id number]) - Medical [facility] 07-19-2021 Hospital Discharge instructions ED Discharge Education Evaluation from 04/10/2021 2:40 PM: * Discharge Instruction : Patient/Significant Other Verbalized Understanding of Discharge Instructions,Reviewed Discharge Instructions with Patient/Significant Other,Patient/Significant Other Received Written Instructions * Educ Topic #1 : Disease Specific * Barriers to Learning : No Barriers * Teaching Method : Reading Materials,Discuss * Evaluation Method : Written,Verbal Physician Follow-up Plan/Appointments from 04/10/2021 2:33 PM: * Patient stated Primary Care Provider : PCP, Other (PCP) ([id number]) - [facility] 07-15-2021 History of Present illness Narrative* 50 year old male with PMH of HTN, bipolar disorder, ascending aortic aneurysm and renal artery stenosis here for initial evaluation. He has been receiving care at [facility] in [place] and recently moved back to [place]. He states Dr. Juan Franz has been monitoring his ascending aortic aneurysm as well as his left renal artery stenosis and that both have been stable as of last July. He was evaluated at [facility] ED last week with complaints of right-sided chest and shoulder pain after eating food high in nitrates. A CTA was obtained demonstrating high grade stenosis at the proximal left renal artery with poststenotic dilation. The right renal artery has a beading appearance. Ascending aorta measures 4.4 cm. He takes three antihypertensives. His most recent creatinine level is 1. He states his blood pressure typically runs in the 130/90s. * He admits to pain with swallowing and is scheduled to undergo endoscopy with GI in the near future.He had GI issues while on Eliquis in the past. He denies chest pain or shortness of breath. He bikes miles a day as this is his main mode of transportation. He denies any family history of FMD. 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 He has been receiving care at [facility] in [place] and recently moved back to [place]. He states Dr. Juan Franz has been monitoring his ascending aortic aneurysm as well as his left renal artery stenosis and that both have been stable as of last July. He was evaluated at [facility] ED last week with complaints of right-sided chest and shoulder pain after eating food high in nitrates. A CTA was obtained demonstrating high grade stenosis at the proximal left renal artery with poststenotic dilation. The right renal artery has a beading appearance. Ascending aorta measures 4.4 cm. He takes three antihypertensives. His most recent creatinine level is 1. He states his blood pressure typically runs in the 130/90s. * He admits to pain with swallowing and is scheduled to undergo endoscopy with GI in the near future.He had GI issues while on Eliquis in the past. He denies chest pain or shortness of breath. He bikes miles a day as this is his main mode of transportation. He denies any family history of FMD. 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 * Attachments The following attachments cannot be sent through Care Everywhere. * Chest Pain (Zimbabwean) documented in this [facility] Work Phone: 1(650) 918-894106-30-2021 Hospital Discharge instructions ED Discharge Education Evaluation from 03/22/2021 8:00 AM: * Discharge Instruction : Reviewed Discharge Instructions with Patient/Significant Other,Patient/Significant Other Received Written Instructions,Patient/Significant Other Verbalized Understanding of Discharge Instructions * Educ Topic #1 : Disease Specific * Barriers to Learning : No Barriers * Teaching Method : Reading Materials * Evaluation Method : Written Patient Transfer Information from 03/22/2021 4:32 AM: * LOC : Alert Physician Follow-up Plan/Appointments from 03/22/2021 4:32 AM: * Patient stated Primary Care Provider : PCP, Other (PCP) ([id number]) - Medical [facility] 06-26-2021 Hospital Discharge instructions ED Discharge Education Evaluation from 03/18/2021 3:17 AM: * Educ Topic #1 : No Education materials given during your stay from 03/18/2021 3:17 AM: * Learning Barrier : None Patient Transfer Information from 03/18/2021 4:30 AM: * Pain Rating : FLACC,0 Physician Follow-up Plan/Appointments from 03/18/2021 1:50 AM: * Patient stated Primary Care Provider : Viral Amado [facility] 06-07-2021 Hospital Discharge instructions ED Discharge Education Evaluation from 02/27/2021 2:22 AM: * Discharge Instruction : Patient/Significant Other Received Written Instructions,Patient/SignificantOther Verbalized Understanding of Discharge Instructions,Reviewed Discharge Instructions with Patient/Significant Other * Educ Topic #1 : Medication * Barriers to Learning : No Barriers * Teaching Method : Audiovisual,Demonstration * Evaluation Method : Written,Verbal Patient Transfer Information from 02/27/2021 2:15 AM: * LOC : Alert Physician Follow-up Plan/Appointments from 02/27/2021 2:15 AM: * Patient stated Primary Care Provider : Hank Bunch MD ([id number]) - Family Practice [facility] 06-06-2021 Hospital Discharge instructions ED Discharge Education Evaluation from 02/26/2021 8:23 PM: * Discharge Instruction : Patient/Significant Other Verbalized Understanding of Discharge Instructions,Patient/Significant Other Received Written Instructions,Reviewed Discharge Instructions with Patient/Significant Other * Educ Topic #1 : Disease Specific * Barriers to Learning : No Barriers * Teaching Method : Discuss,Reading Materials * Evaluation Method : Written,Verbal * Educ Topic # 2 : Self Care * Barriers to Learning : No Barriers * Teaching Method : Reading Materials,Discuss * Evaluation Method : Written,Verbal Patient Transfer Information from 02/26/2021 5:46 PM: * LOC : Alert Physician Follow-up Plan/Appointments from 02/26/2021 7:37 PM: * Patient stated Primary Care Provider : Hank Bunch MD ([id number]) - [facility] 05-30-2021 Hospital Discharge instructions ED Discharge Education Evaluation from 02/19/2021 12:57 PM: * Discharge Instruction : Reviewed Discharge Instructions with Patient/Significant Other,Prescriptions(s) with Medication Education Including Indication & Side Effects Provided to Patient/Siginificant Other,Patient/Significant Other Verbalized Understanding of Discharge Instructions,Patient/Significant Other Received Written Instructions * Educ Topic #1 : Safety * Barriers to Learning : No Barriers * Teaching Method : Reading Materials,Discuss * Evaluation Method : Written,Verbal * Educ Topic # 2 : Safety * Barriers to Learning : No Barriers * Teaching Method : Discuss,Group Learning * Evaluation Method : Verbal Patient Transfer Information from 02/19/2021 12:36 PM: * LOC : Alert Physician Follow-up Plan/Appointments from 02/19/2021 12:39 PM: * Patient stated Primary Care Provider : Hank Bunch MD ([id number]) - [facility] 05-30-2021 Hospital Discharge instructions ED Discharge Education Evaluation from 02/19/2021 4:34 AM: * Discharge Instruction : Reviewed Discharge Instructions with Patient/Significant Other,Patient/Significant Other Verbalized Understanding of Discharge Instructions,Patient/Significant Other Received Written Instructions * Educ Topic #1 : Follow-up care * Barriers to Learning : No Barriers * Teaching Method : Reading Materials,Discuss * Evaluation Method : Verbal,Written Patient Transfer Information from 02/19/2021 2:39 AM: * LOC : Alert [facility] 05-26-2021 Chief complaint Narrative - Reported* An interactive audio and video telecommunication system which permits real time communications between the patient (at the originating site) and provider (at the distant site) was utilized to providethis telehealth service. * Verbal consent was requested and obtained from HOSEA ALVAREZ on this date, 02/15/2021 01:00 PM , for a telehealth visit. * Do I have an Autoimmune disease * related to Rashida bartlettviry? * Multiple ER visits in many hospital systems in at least [place] and [place] [facility] [address] Work Phone: [phone]) 683-342505-26-2021 History of Present illness Narrative* Initial visit of 50 y/o male for complaint of difficulty swallowing * 02/15/2021 seen in [place] ED with left upper quadrant discomfort after he had drank beer prior. Hedenied any associated nausea, vomiting. He went to [facility] ED prior night for complaint, but stated they only checked his heart and did not obtain CT imaging. Mild LUQ tenderness on exam. Given IV fluids, GI cocktail and Pepcid. Labs including lipase and troponin unremarkable. CT of the chest abdomen pelvis shows no acute process. Stable 4.4 cm ascending aortic aneurysm. Lucas better on re-exam and denied abdominal pain. He was recommended to subside on his drinking. * Seen in [facility] ED 02/18/2021 due to trouble swallowing. Patient states he was eating some [employer]el[employer] earlier and had difficulty swallowing a chicken nuggets stating that he feels there is something pressing on his esophagus that is not allowing him to swallow. CXR normal. Labs with mild anemia with H&H 12.5 & 37.1. He was found by nurse to be drinking a beer without difficulty. Told to follow up with PCP and GI. Required escort from ED due to verbal belligerence when he states he wanted an Emergency EGD in the ED and they would not do one. * States had been living in [place], [place] until recently and followed with [place]. Past 2 weeks, feels solid foods press against heart. Avocado and soup okay. When ate his girlfirends pot roast it felt bad. Feels it gets stuck in chest, and then has right abdominal pain. Appetite good, but can't eat because he Feels there is a mass pushing . At [facility] was on Eliquis, and had bloating after eating. * On Dexamethasone 4 mg daily 01/2021 for 3 days. Caffeine caused mid-chest pain and found P.E. at time in July. 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 [facility] States Augmentin for recent dental infection got stuck with swallowing, but able to take othertablets. Feels people have been writing symptoms off as anxiety. States that he has been to multiple local hospital systems ED and has had multiple CT scans he feels he will get cancer from because the hospitals don't communicate with each other . * Last night when lying down after eating girlfriends palmer felt left upper quadrant pain. No cough. No hoarse voice. Feels when he eats that something is choking him. Worried he has esophageal cancer. GI cocktails and Toradol in ED helped discomfort. Feels Dicyclomine helps pain as well. * States never had EGD or Colonoscopy. Has difficulty moving bowels. Moves bowels formed, non-bloody.Hard to push out. Takes prune juice. No nausea or vomiting. With good BM feels better. Has an appointment with [facility] correction[facility] counselor/case manager February 27 for mental health. States he is only eligible for Mental Health services there. [place] and doesn't know how to get food. * PMHx: HTN, Ascending Aortic Aneurysm, ELIANA, Hyperlipidemia, ? Bipolar, PTSD, P.E. 07/2020, Covid -19109/2019, * PSurgHx: Hemorrhoidectomy * FamilyHx: No GI Malignancies, No IBD * SocialHx: Not working. Food stamps from [place] just got cancelled. Living with friend. Occasionalpuff of cigarette. Has 24 ounces beer/day. No illicit drug use. [email or web address] Work Phone: [phone]) [phone] Hospital Discharge instructions ED Discharge Education Evaluation from 02/15/2021 10:08 AM: * Discharge Instruction : Reviewed Discharge Instructions with Patient/Significant Other,Patient/Significant Other Received Written Instructions,Patient/Significant Other Verbalized Understanding of Discharge Instructions * Educ Topic #1 : Disease Specific * Barriers to Learning : No Barriers * Teaching Method : Reading Materials,Discuss * Evaluation Method : Verbal,Return Demonstration Patient Transfer Information from 02/15/2021 9:29 AM: * LOC : Alert [facility] 05-26-2021 Hospital Discharge instructions ED Discharge Education Evaluation from 02/14/2021 10:45 PM: * Discharge Instruction : Patient/Significant Other Verbalized Understanding of Discharge Instructions,Patient/Significant Other Received Written Instructions,Prescriptions(s) with Medication EducationIncluding Indication & Side Effects Provided to Patient/Siginificant Other,Reviewed Discharge In structions with Patient/Significant Other * Educ Topic #1 : Cardiac * Barriers to Learning : No Barriers * Teaching Method : Reading Materials,Discuss * Evaluation Method : Verbal,Written Patient Transfer Information from 02/14/2021 7:38 PM: * LOC : Alert Physician Follow-up Plan/Appointments from 02/14/2021 7:38 PM: * Patient stated Primary Care Provider : PCP, NONE ([id number]) [facility] 05-14-2021 NoteEmergency: Diagnostic Ultrasound Test:biliary Indication:abdominal pain Findings:The gallbladder was visualized and was NEGATIVE for stones., The gallbladder wall was NOT thickened and NO pericholecystic fluid was seen., There was NO sonographic Valdes's sign. Overall Impression:The gallbladder exam was NEGATIVE for gallstones. Images saved:yes Interpreted by:Lily Wolf MD Electronic Signatures: Lily Wolf) (Signed 03-Feb-2021 05:34) Authored: Emergency, Attestation Last Updated: 03-Feb-2021 05:34 by Lily Wolf)[facility] 09-23-2020 History of Present illness [id number] year old male being seen for telephone visit. He has high grade left renal artery stenosis and was offered intervention twice this year. He canceled both times. He was seen by Dr. Delatorre last week and was escorted out of the office for inappropriate behavior. He also has an ascending aortic aneurysm that has grown to 5 cm compared to 4.6 cm about 6 months ago. He states his blood pressure is better controlled since starting Losartan.-[facility] Work Phone: [phone]) [phone] History of Present illness Narrative* Follow up of 50 y/o man w/ PMHx HTN, Ascending Aortic Aneurysm, ELIANA, Hyperlipidemia, ? * Bipolar, PTSD, P.E. 07/2020, Covid -19 07/2020 for complaint of difficulty swallowing with associated chest discomfort. * At initial visit 02/22/2021, on review of [facility], he had at least 30 local ED visits since January 26, 2021 with all but 5 of those being related to a chest complaint. He had been seen at [facility], [facility], [facility], and [facility] In the [facility] system, he has been seen at their main campus, [facility], and [place]. Additionally in that timeframe he has been seen at [facility], [facility], [facility]. He has undergone at least 3 CTAs Chest, 3CTA Abdomen/Pelvis, 3 CT chest and one CT Abdomen/Pelvis in that timeframe (27 days) with no significant finding other than an ascending aortic aneurysm that is being followed by cardiology. * He reported esophageal dysphagia to solids with associated chest pain, but stated he is able to swallow his pills. Discomfort also noted following ingestion of alcohol. Given his symptoms in the context of repeated ED visits, Omeprazole dose increased and reviewed pertinent diet and lifestyle measures for reflux. He is worried he has an esophageal cancer. Given his repeated complaints with mild anemia as well as some epigastric discomfort on exam, Upper Endoscopy ordered. States never had an EGD/Colonoscopy. Fiber supplement for difficult stooling also added. * He was dismissed from Dr. Wally Rich of Cardiology's practice 03/23/2021 due to verbal profane abuse of office staff. Admitted to [facility] 04/17/2021 for possible syncope. He apparently had some right-sided chest discomfort and some right arm numbness * Had Esophagram 03/30/2021 at [facility] that was unremarkable without stricture orhiatal hernia. He has also had further repeated CTA imaging with CTA Chest 03/17/2021 at [facility], CTA 04/04/2021 at [facility] and CTA Chest, A?P 04/16/2021 at [facility] without new findings. * On follow up today, goes to various ED depending on where he is riding bike at the time. States he has pain with swallowing and can not keep it down. Feels it gets stuck. Eats yogurt, ensure beer and liquid. Solid foods get stuck. Rice and chicken an issue. To talk to [employer] today for food card. States food pantries give him junk food. Feels there is something in esophagus and GI tract that cuts off circulation to his right arm. * States spoke to [facility] about getting a endoscopy. Wants to have with minimal sedation. Pain pushes on back as well. Lucas Omeprazole did not help. Feels he is having hemorrhoids and problems. Does not want to try other medications since he feels issue is due to a mass. [id number] Work Phone: 1([phone]) [phone] History of Present illness Narrative* Follow up of 50 y/o man w/ PMHx HTN, Ascending Aortic Aneurysm, ELIANA, Hyperlipidemia, ? Bipolar, PTSD, P.E. 07/2020, Covid -19 07/2020 for complaint of difficulty swallowing with associated chest discomfort. * At initial visit 02/22/2021, on review of [facility], he had at least 30 local ED visits since January 26, 2021 with all but 5 of those being related to a chest complaint. He had been seen at [facility], [facility], [facility], and [facility] In the [facility] system, he has been seen at their main campus, [place], [facility], and [place]. Additionally in that timeframe he has been seen at [facility], [facility], [facility], and the [facility]. He has undergone at least 3 CTAs Chest, 3CTA Abdomen/Pelvis, 3 CT chest and one CT Abdomen/Pelvis in that timeframe (27 days) with no significant finding other than an ascending aortic aneurysm that is being followed by cardiology. * He reported esophageal dysphagia to solids with associated chest pain, but stated he is able to swallow his pills. Discomfort also noted following ingestion of alcohol. Given his symptoms in the context of repeated ED visits, Omeprazole dose increased and reviewed pertinent diet and lifestyle measures for reflux. He is worried he has an esophageal cancer. Given his repeated complaints with mild anemia as well as some epigastric discomfort on exam, Upper Endoscopy ordered. States never had an EGD/Colonoscopy. Fiber supplement for difficult stooling also added. * He was dismissed from Dr. Wally Rich of Cardiology's practice 03/23/2021 due to verbal profane abuse of office staff. Admitted to [facility] 04/17/2021 for possible syncope. He apparently had some right-sided chest discomfort and some right arm numbness * Had Esophagram 03/30/2021 at [facility] that was unremarkable without stricture orhiatal hernia. He has also had further repeated CTA imaging with CTA Chest 03/17/2021 at [facility], CTA 04/04/2021 at [facility] and CTA Chest, A/P 04/16/2021 at [facility] without new findings. * On follow up today, wants Endoscopy to be scheduled prior to date of 05/17/2021. He states goes to various ED depending on where he is riding bike at the time. States he has pain with swallowing and can not keep it down. Feels it gets stuck. Eats yogurt, ensure, beer and liquid. Solid foods get stuck. Rice and chicken an issue. No nausea.. To talk to [employer] today for food card. States food pantries give him junk food. Feels there is something in esophagus and GI tract that cutsoff circulation to his right arm. * States spoke to [facility] about getting a endoscopy. Wants to have with minimal sedation. Pain pushes on back as well. Lucas Omeprazole did not help. Feels he is having hemorrhoids and problems. Does not want to try other medications since he feels issue is due to a mass in his esophagus. [id number] Work Phone: [phone]) [phone] History of Present illness Narrative* Follow up of 50 y/o man w/ PMHx HTN, Ascending Aortic Aneurysm, ELIANA, Hyperlipidemia, ? Bipolar, PTSD, P.E. 07/2020, Covid -19 07/2020 for complaint of difficulty swallowing with associated chest discomfort. * At initial visit 02/22/2021, on review of [facility], he had at least 30 local ED visits since January 26, 2021 with all but 5 of those being related to a chest complaint. He had been seen at [facility], [facility], [facility], and [facility]. In the [facility] system, he has been seen at their main campus, [facility], and [place] Additionally in that timeframe he has been seen at [facility], [facility], [facility], [facility]. He has undergone at least 3 CTAs Chest, 3CTA Abdomen/Pelvis, 3 CT chest and one CT Abdomen/Pelvis in that timeframe (27 days) with no significant finding other than an ascending aortic aneurysm that is being followed by cardiology. * He reported esophageal dysphagia to solids with associated chest pain, but stated he is able to swallow his pills. Discomfort also noted following ingestion of alcohol. Given his symptoms in the context of repeated ED visits, Omeprazole dose increased and reviewed pertinent diet and lifestyle measures for reflux. He is worried he has an esophageal cancer. Given his repeated complaints with mild anemia as well as some epigastric discomfort on exam, Upper Endoscopy ordered. States never had an EGD/Colonoscopy. Fiber supplement for difficult stooling also added. * He was dismissed from Dr. Wally Rich of Cardiology's practice 03/23/2021 due to verbal profane abuse of office staff. Admitted to [facility] 04/17/2021 for possible syncope. He apparently had some right-sided chest discomfort and some right arm numbness * Had Esophagram 03/30/2021 at [facility] that was unremarkable without stricture orhiatal hernia. He has also had further repeated CTA imaging with CTA Chest 03/17/2021 at [facility], CTA 04/04/2021 at [facility] and CTA Chest, A/P 04/16/2021 at [facility] without new findings. * On follow up today, wants Endoscopy to be scheduled prior to date of 05/17/2021. He states goes to various ED depending on where he is riding bike at the time. States he has pain with swallowing and can not keep it down. Feels it gets stuck. Eats yogurt, ensure, beer and liquid. Solid foods get stuck. Rice and chicken an issue. No nausea.. To talk to [employer] today for food card. States food pantries give him junk food. Feels there is something in esophagus and GI tract that cutsoff circulation to his right arm. * States spoke to [facility] about getting a endoscopy. Wants to have with minimal sedation. Pain pushes on back as well. Lucas Omeprazole did not help. Feels he is having hemorrhoids and problems. Does not want to try other medications since he feels issue is due to a mass in his esophagus. [facility] Work Phone: 1(956) 441-978811-01-2020 History of Present illness Narrative* Follow up of 50 y/o man w/ PMHx HTN, Ascending Aortic Aneurysm, ELIANA, Hyperlipidemia, ? Bipolar, PTSD, P.E. 07/2020, Covid -19 07/2020 for complaint of difficulty swallowing with associated chest discomfort. * At initial visit 02/22/2021, on review of [facility], he had at least 30 local ED visits since January 26, 2021 with all but 5 of those being related to a chest complaint. He had been seen at [facility], [facility], [place], and [facility] In the [facility] system, he has been seen at their main campus, [place], [facility], and [place]. Additionally in that timeframe he has been seen at [facility], [facility], [facility], and the [facility]. He has undergone at least 3 CTAs Chest, 3CTA Abdomen/Pelvis, 3 CT chest and one CT Abdomen/Pelvis in that timeframe (27 days) with no significant finding other than an ascending aortic aneurysm that is being followed by cardiology. * He reported esophageal dysphagia to solids with associated chest pain, but stated he is able to swallow his pills. Discomfort also noted following ingestion of alcohol. Given his symptoms in the context of repeated ED visits, Omeprazole dose increased and reviewed pertinent diet and lifestyle measures for reflux. He is worried he has an esophageal cancer. Given his repeated complaints with mild anemia as well as some epigastric discomfort on exam, Upper Endoscopy ordered. States never had an EGD/Colonoscopy. Fiber supplement for difficult stooling also added. * He was dismissed from Dr. Wally Rich of Cardiology's practice 03/23/2021 due to verbal profane abuse of office staff. Admitted to [facility] 04/17/2021 for possible syncope. He apparently had some right-sided chest discomfort and some right arm numbness * Had Esophagram 03/30/2021 at [facility] that was unremarkable without stricture orhiatal hernia. He has also had further repeated CTA imaging with CTA Chest 03/17/2021 at [facility], CTA 04/04/2021 at [place] and CTA Chest, A/P 04/16/2021 at [facility] without new findings. * On follow up today, wants Endoscopy to be scheduled prior to date of 05/17/2021. He states goes to various ED depending on where he is riding bike at the time. States he has pain with swallowing and can not keep it down. Feels it gets stuck. Eats yogurt, ensure, beer and liquid. Solid foods get stuck. Rice and chicken an issue. No nausea.. To talk to [employer] today for food card. States food pantries give him junk food. Feels there is something in esophagus and GI tract that cutsoff circulation to his right arm. * States spoke to [facility] about getting a endoscopy. Wants to have with minimal sedation. Pain pushes on back as well. Lucas Omeprazole did not help. Feels he is having hemorrhoids and problems. Does not want to try other medications since he feels issue is due to a mass in his esophagus. [facility] Work Phone: Chitv complaint Narrative - ReportedThe patient presents to the office today for an initial evaluation.[facility] [place] [address] Work Phone: chiny complaint Narrative - ReportedThe patient presents to the office today for an initial evaluation.[facility] [address] Work Phone: clinical Notes [facility] Evaluation + Plan note [facility] Evaluation + Plan note No data available for this section [facility] Evaluation + Plan note Future Appointments Appointment Date:07/15/2024 10:30:00 AM Scheduled Provider:Tima Edwards MD Location[facility] Appointment Type:BADH New Patient [facility] Evaluation + Plan noteExtracted from: Title:ED Note Author:Neil Alexander DO Date: Anxiety (F41.9: Anxiety diso rder, unspecified) Orders: Consult to Mental Health [facility] Evaluation note* Diagnosis Atypical chest pain- Primary Other chest pain documented in this encounter [facility] Work Phone: evaluation note* Diagnosis Chest pain, unspecified type- Primary documented in this encounter [facility] Work Phone: evaluation note* Diagnosis Dysphagia, unspecified type documented in this encounter [facility] Work Phone: evaluation note* General: Patient is wearing street clothes and sitting on his Bed.Appearance: patient appears stated age.Attitude: Calm, cooperative.Behavior: Appropriate eye contact.Motor Activity: No agitation or retardation. No EPS/TD. Normal gait.Speech: Regular rate, rhythm, volume and tone, spontaneous, fluent. Mood: anxiousAffect: mood congruent.Thought Process: Organized, linear, goal directed. Associations are logical.Thought Content: Does not endorse suicidal or homicidal ideation, no delusions elicited.Thought Perception: Does not endorse auditory or visual hallucinations, does not appear to be responding to hallucinatory stimuli. Cognition: Alert, oriented x3. No deficits noted. Adequate fund of knowledge. No deficit in recent and remote memory. No deficits in attention, concentration or language.Insight: fairJudgment: fair [facility]* Psychological: Appropriate mood and behaviorNeurological: A&O [id number]: no edema x4 extremities, 2+DP/PTGastrointestinal: non-distended, non-tender to palpate, +BSCardiovascular: +S1/S2, no murmur, regular rate/rhythmRespiratory/Thorax: Bilateral lung cruz clear to auscultate posteriorly, no wheezing, rhonchi, or rales.Head/Neck: no JVD with HOB upright at 90Constitutional: alert and aw evelyne, sitting up in bed, no distressSkin: warm and dry [facility]* Diagnosis Essential hypertension Unspecified essential hypertension [facility] Diagnosis Acute alcoholic intoxication without complication (HCC)- Primary Hypotension, unspecified hypotension type Dehydration Hypokalemia Hypopotassemia documented in this encounter [facility] Phone: evaluation note* Diagnosis Generalized abdominal pain- Primary Abdominal pain, generalized Ascending aortic aneurysm, unspecified whether ruptured (HCC) Abnormal CT scan Other nonspecific (abnormal) findings on radiological and other examinations of body structure documented in this encounter [facility] Phone: evaluation note* Diagnosis Essential hypertension- Primary Unspecified essential hypertension documented in this encounter [employer] Phone: evaluation noteNo assessment information available [facility] Work Phone: Evaluation note* Diagnosis Dizziness- Primary Dizziness and giddiness [facility] Diagnosis Other chest pain Palpitations Decreased white blood cell count, unspecified Thrombocytopenia, unspecified (CMS/HCC) Thrombocytopenia, unspecified Disorder of kidney and ureter, unspecified Old myocardial infarction Homelessness unspecified Personal history of other diseases of the circulatory system documented in this encounter [facility] Work Phone: Evaluation note* Diagnosis Onset Date Resolution Status Constipation acute [facility] Work Phone: History of Present illness Narrative* Consult ? Esdras Calixto autoimmune issues or concerns * Refer; Self * his PCP is in [facility] * [facility] * 50 M * Presently in [facility] ER calling from the waiting room! * Telemed PHONE * Since Covid DX in September 2020 * Flares of Esophageal Pain * with chest pain and hypertension * Worse after eating certain foods with sodium nitrate or caffeine * R arm tightens up as well * L side swells up * i just got an RX for Dexamethasone * I am afraid to eat * HX of Renal Art Stenosis * Aneurysm * Latest lab 01/2021 ER * WSR 22 * CRP normal * JANENE 1:40 with normal EARL and anti- DNA * Plt 121,000 * WBC 3800 * H/H 12.9/37.9 * CT chest and abdomen reviewed * DX * No clinical evidence of a systemic disease based on the history and lab reviewed * Esophageal Pathology?? * Plan: * He has been to many hospital systems in ER multiple x's * He needs PCP * Possibly a GI consult * Discussed all of this with him. * See in person if needed [facility] [address] Work Phone: History of Present illness Narrative* Patient is a 50-year-old male with past medical history of ascending aortic aneurysm, esophageal spasm, benign essential hypertension, pancytopenia, unilateral renal artery stenosis presents to discuss ongoing medical issues. It is unclear at this time if he wishes to establish care. He currently has a primary care doctor in [facility]. He sees a multitude of physicians in [place]. He states that he travels back and forth. * He seems to have some continuity of care and [place] with providers however he states due to the fact that he has Medicaid he cannot get into see those providers. 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 It seems to be stable from 2019. He does have what he describes as labile hypertension. He has been taking hismedications with the exception of the amlodipine and the triamterene hydrochlorothiazide. He follows with cardiology at [facility]. Patient had an MRI of the heart which was unremarkable and the stress test was declined by the patient's. * He also has unilateral renal artery stenosis. He has never had it evaluated by nephrology. Severe based on CT angio. This could explain his labile hypertension. His GFR is greater than 60 and there is no evidence of atrophy based on CT angio imaging. * Patient states he has been suffering from a significant number of GI issues he is having trouble swallowing. He has a history of smoking however now he smokes very infrequently. He had an evaluation by gastroenterology with recommendation for an upper endoscopy and possible colonoscopy. He states he does not want it done under sedation and therefore there has been some complications with scheduling the testing. He denies any recent weight loss however he does have low hemoglobin. * Pancytopenia. This may be related to EtOH intake. He has never had it evaluated. His platelets fluctuate between low normal to slightly below normal. No evidence of active bleeding. His liver functions are within normal limits. * Hypertension currently well controlled on current medications. Patient in need of refill of the losartan. No chest pain palpitations nausea vomiting diarrhea or constipation. * In addition to seeking medical attention in [facility] and now [place] he also states that he is try to get social sciences instructor in [facility]. He states that he needs 30 days off of work in order to get social sciences instructor in the [facility]. He has no physical capacity at this time although he has been in and out of the emergency room more than 20 times for various reasons over the last 2 months alone for various release reasons related to chest pain and nonspecific gastrointestinal issues. [facility] Work Phone: History of Present illness Narrative* 50 Year old Male * New Patients: neck and mid- back pain * PCP- Viral Silva * Patient complains of neck and mid- back pain here for an alignment by an osteopathic physician wants to be sure things are in line and would like some exercises to help * No Pain medications * Sleep is not impacted * NO physical therapy * NO massage therapy * NO acupuncture * NO Chiropractor * NO Injections * x-rays or mri - April of 2021 * He drinks a [place] 45 malt liquor daily * Physical exam * No acute distress * Ambulating without assistance * No conversational dyspnea * Able to get in and out of the chair without assistance * There is a kyphosis with a internal rotation of the shoulder bilaterally * Shoulder abduction is limited to 130 degrees flexion and abduction because of the tightness in bothof the shoulders * Limited spinal extension * CONCLUSION: Chronic spinal pain with no history or physical exam clearly indicative of a pathological issue but more with posture issue presents for consultation with the Osteopathic sports rehabilitation clinic at the [facility] * I noticed muscle imbalances on my examination. Based upon my evaluation today, this patient is a candidate for Osteopathic Manipulation with the initial goal to help improved muscles function and joint motion * I discussed the role of osteopathic rehabilitation approach. This approach is not about getting ridof pain. Rather, it is finding where there are muscular joint and soft tissue imbalances and using osteopathic manipulative treatments trying to put those areas back into better movement or alignment. The consequence of these dysfunctional movements of the body results in some group of muscles being overworked leading to fatigue and discomfort and pain while other muscles are being underworked. This also will then impact joints and joint tissues that have nerve receptors which can also contribute to the pain and discomfort. Since the body wants to be moving at its most efficient manner, osteopathic manipulation, by restoring these dysfunctional movements of the muscle skeletal system into better alignment, can finally allow the body to actually utilize the underworked muscles more and to decrease the overworking of the overuse muscles which results in nominal and less fatigue in the muscles less stress at the joint level. Also furthering reduction of pain and discomfort and improving muscular endurance * [email or web address]: prescription for exercise rehabilitation provided - specifically: * Doorframe mobility sequence * I provided the Wake up your butt exercise sequence designed to stretch and mobilize the tight flexors and strengthen the weak extensors * Follow-up in 4 to 6 weeks * Patient presents for Osteopathic exam and treatment. * Left leg short right arm short right scapular restriction left quadratus lumborum tender point thoracolumbar junction rotation to the right lumbosacral rotation to the left cervical thoracic rotationto the right with T1 rotated to the right C3 rotation to the left OA side bent right rotated left left scapular restriction * Somatic dysfunction: Occipital, cervical, upper extremity ribs thoracic, lumbar, sacral pelvis, lower extremity, abdomen * Osteopathic manipulative treatment was used including muscle energy, myofascial release. soft tissue, joint mobilization * patient tolerated procedure well * After treatment leg lengths are equal arm lengths were equal range of motion of the shoulder was greater. * Pre-Treatment Pain Level: 12/31. [place] [id number] Work Phone: History of Present illness Narrative* 50 Year old Male * New Patients: neck and mid- back pain * PCP- Viral Silva * Patient complains of neck and mid- back pain here for an alignment by an osteopathic physician wants to be sure things are in line and would like some exercises to help * No Pain medications * Sleep is not impacted * NO physical therapy * NO massage therapy * NO acupuncture * NO Chiropractor * NO Injections * x-rays or mri - April of 2021 * He drinks a [place] 45 malt liquor daily * Physical exam * No acute distress * Ambulating without assistance * No conversational dyspnea * Able to get in and out of the chair without assistance * There is a kyphosis with a internal rotation of the shoulder bilaterally * Shoulder abduction is limited to 130 degrees flexion and abduction because of the tightness in bothof the shoulders * Limited spinal extension * CONCLUSION: Chronic spinal pain with no history or physical exam clearly indicative of a pathological issue but more with posture issue presents for consultation with the Osteopathic sports rehabilitation clinic at the [facility] * I noticed muscle imbalances on my examination. Based upon my evaluation today, this patient is a candidate for Osteopathic Manipulation with the initial goal to help improved muscles function and joint motion * I discussed the role of osteopathic rehabilitation approach. This approach is not about getting ridof pain. Rather, it is finding where there are muscular joint and soft tissue imbalances and using osteopathic manipulative treatments trying to put those areas back into better movement or alignment. The consequence of these dysfunctional movements of the body results in some group of muscles being overworked leading to fatigue and discomfort and pain while other muscles are being underworked. This also will then impact joints and joint tissues that have nerve receptors which can also contribute to the pain and discomfort. Since the body wants to be moving at its most efficient manner, osteopathic manipulation, by restoring these dysfunctional movements of the muscle skeletal system into better alignment, can finally allow the body to actually utilize the underworked muscles more and to decrease the overworking of the overuse muscles which results in nominal and less fatigue in the muscles less stress at the joint level. Also furthering reduction of pain and discomfort and improving muscular endurance * [email or web address]: prescription for exercise rehabilitation provided - specifically: * Doorframe mobility sequence * I provided the Wake up your butt exercise sequence designed to stretch and mobilize the tight flexors and strengthen the weak extensors * Follow-up in 4 to 6 weeks * Patient presents for Osteopathic exam and treatment. * Left leg short right arm short right scapular restriction left quadratus lumborum tender point thoracolumbar junction rotation to the right lumbosacral rotation to the left cervical thoracic rotationto the right with T1 rotated to the right C3 rotation to the left OA side bent right rotated left left scapular restriction * Somatic dysfunction: Occipital, cervical, upper extremity ribs thoracic, lumbar, sacral pelvis, lower extremity, abdomen * Osteopathic manipulative treatment was used including muscle energy, myofascial release. soft tissue, joint mobilization * patient tolerated procedure well * After treatment leg lengths are equal arm lengths were equal range of motion of the shoulder was greater. * Pre-Treatment Pain Level: 12/31. [facility] Mobile Phone: History of Present illness Narrative* Patient is a 50-year-old male with past medical history of ascending aortic aneurysm, esophageal spasm, benign essential hypertension, pancytopenia, unilateral renal artery stenosis presents for follow-up from recent ER visit. Patient is a complicated individual with bipolar disorder. He has been going to the emergency room presents for noncardiac chest pain over and over again. He has scans and labs and repeat testing almost every week. He presents today with his typical right sided anterior chest pain due to costochondritis. Every time he goes to the emergency room is always a slight variation of the same cardiac chest pain. He also has an ascending aortic aneurysm which he is concerned is causing the pain which makes him scared which results in another ER visit. He states that he has established with a psychiatrist at the [facility] but is not currently on any medications. * Spent a significant amount of time explaining the value of a primary care doctor and that if he hasnonurgent complaints he can schedule an appointment so that we can assess him in the office so thathe does not have to go to the emergency room. When discussing this he comes up with many excuses asto why he cannot schedule a primary care doctor appointment as he is not in the area or he is out of state. However he does not currently have any form of employment and it is unclear if he lives in the same house on an ongoing regular basis. * His noncardiac chest pain is being worked up by gastroenterology. He had an upper EGD with no obvious pathology. He states that there is plan for colonoscopy. * He was supposed to follow-up with vascular surgery for intervention of aneurysm of the aorta. For some reason he has made an appointment virtually with a vascular surgeon in [place] * His blood pressure today is fairly controlled. [facility] [address] Work Phone: History of Present illness NarrativePatient is currently dealing with frequent chest pains, waking up with rapid heartbeat, and anxiety. Patient moved to [place] due to better access to doctors he needs. He is concerned about his Aortic Aneurysm and Thoracic Aneurysm. Patient has autism and has a communication style that sometimes comes off as more aggressive than he realizes. This, according to him, has led to his being dismissed from several medical practices, as well as being thrown out of several Emergency Departments.[facility] [place] Work Phone: History of Present illness NarrativePatient presents as in good spirits, alert and oriented x3. Patient somewhat unsure of correctional counselor/case manager's role in his care, requesting services that are not aligned with purpose of case management (e.g. coming out with patient to provide outreach to local homeless encampments).[facility] [place] Work Phone: History of Present illness NarrativePatient is currently dealing with frequent chest pains, waking up with rapid heartbeat, and anxiety. Patient moved to [place] due to better access to doctors he needs. He is concerned about his Aortic Aneurysm and Thoracic Aneurysm. Patient has autism and has a communication style that sometimes comes off as more aggressive than he realizes. This, according to him, has led to his being dismissed from several medical practices, as well as being thrown out of several Emergency Departments.[facility] [address] [place] Work Phone: History of Present illness NarrativePatient is open to discussing his care today. Patient is alert and oriented x3.[facility] [address] [place] Work Phone: History of Present illness NarrativePatient presents as concerned and upset about his treatment options. He is alert and oriented x3. [facility] [address] [place] Work Phone: History of Present illness NarrativePatient presents as frustrated and upset about his medical care. Patient is alert and oriented x3.[facility] [address] [place] Work Phone: Hospital course NarrativeLHS Hospital course NarrativeLHS Hospital course NarrativeLHS Hospital course NarrativeLHS Hospital course NarrativeLHS Hospital course NarrativeLHS Hospital course NarrativeLHS Hospital course NarrativeLHS Hospital course NarrativeLHS Hospital course NarrativeLHS Hospital course NarrativeLHS Hospital course NarrativeLHS Hospital course NarrativeLHS Hospital course NarrativeLHS Hospital course NarrativeLHS Hospital course NarrativeLHS Hospital course NarrativeLHS Hospital course NarrativeLHS Hospital course NarrativeLHS Hospital course NarrativeLHS Hospital course NarrativeLHS Hospital course NarrativeLHS Hospital course NarrativeLHS Hospital course NarrativeLHS Hospital course NarrativeLHS Hospital course NarrativeLHS Hospital course NarrativeLHS Hospital course NarrativeLHS Hospital course NarrativeLHS Hospital course NarrativeLHS Hospital Discharge instructions* Gold Form - Other Clinicians:School Manager/Care Transitions Team Instructions: [facility] intermediate, [facility], Provided Medicaid application incase HRS is not able to complete with him [facility] Activity on Discharge from 03/18/2021 4:28 PM: * Activity Restrictions : Resume Activity as Tolerated Chest Pain/Heart Attack Information from 03/18/2021 4:28 PM: * Has Patient had Chest Pain or an CA during this Visit? : No * It is important to understand risk factors for heart disease : It is important to understand risk factors for heart disease * so you can work with your doctor to help prevent further cardiac : so you can work with your doctorto help prevent further cardiac injury. COPD Information from 03/18/2021 4:28 PM: * Does Patient have a problem/diagnosis of COPD? : No ED Discharge Education Evaluation from 03/18/2021 8:00 AM: * Educ Topic #1 : No Education materials given during your stay from 03/18/2021 4:28 PM: * Learning Barrier : None Patient Transfer Information from 03/18/2021 10:32 AM: * Eating : Self * Eating : Self Physician Follow-up Plan/Appointments from 03/18/2021 4:28 PM: * Discharge Physician: : Dr. Ascencio * Discharge Physician Phone: : [phone] * Patient stated Primary Care Provider : Hank Bunch MD ([id number]) - Family Practice * Follow up with PCP in : 1 * Schedule follow up with PCP in: : Week(s) Pneumonia/Influenza Vaccine Screen from 03/18/2021 4:28 PM: * Pneumovax screening tool completed : Yes * Pneumovax administered : No, not applicable * Influenza screening tool completed : No * Influenza vaccine administered : No, not applicable Stroke/TIA Discharge Information from 03/18/2021 4:28 PM: * Does the Patient Have a Problem/Diagnosis of Stroke this visit? : No S Hospital Discharge instructions* Attachments The following attachments cannot be sent through Care Everywhere. * Chest Pain (Zimbabwean) documented in this encounterC[facility] HospitalCarrot.mx Phone: spital Discharge instructions* Gold Form - Other Clinicians:Other Clinician Instructions: Please talk with your electrical software engineer to discuss [facility]* Attachments The following attachments cannot be sent through Care Everywhere. * Hypokalemia (Zimbabwean) * Alcohol Intoxication: Acute (Zimbabwean) documented in this encounterDANA-FARBER [facility] INSTITUTEartaculous Phone: spital Discharge instructions* Attachments The following attachments cannot be sent through Care Everywhere. * Abdominal Pain (Zimbabwean) * Aneurysm: Thoracic Aortic (Zimbabwean) [facility] Phone: spital Discharge instructions* Attachments The following attachments cannot be sent through Care Everywhere. * Hypertension: General Info (Zimbabwean) documented in [facility]WH[facility] Ph[facility] Phone: Hospital Discharge instructions Additional Instructions Follow-up with your primary care doctor Return to ED for develop worsening symptoms or concerns[facility] Work Phone: Hospital Discharge instructions Additional Instructions You have a 1.7 cm lesion on the right mid kidney that we will need further evaluation please follow-up with your family doctor for further imaging.[facility] Work Phone: Hospital Discharge instructions No data available for this section [facility] Progress note No data available for this section [facility] Summary Purpose Family History No Family History Records Found No family history of cancer(V49.89) Status:Activ e No family history of coronary artery disease(V49 .89) Status:Active No family history of cancer(V49.89) Status:Activ e No family history of coronary artery disease(V49 .89) Status:Active No family history of cancer(V49.89) Status:Activ e No family history of coronary artery disease(V49 .89) Status:Active No family history of cancer(V49.89) Status:Activ e No family history of coronary artery disease(V49 .89) Status:Active No family history of cancer(V49.89) Status:Activ e No family history of coronary artery disease(V49 .89) Status:Active No family history of cancer(V49.89) Status:Activ e No family history of coronary artery disease(V49 .89) Status:Active No family history of cancer(V49.89) Status:Activ e No family history of coronary artery disease(V49 .89) Status:Active No family history of cancer(V49.89) Status:Activ e No family history of coronary artery disease(V49 .89) Status:Active No family history of cancer(V49.89) Status:Activ e No family history of coronary artery disease(V49 .89) Status:Active No family history of cancer(V49.89) Status:Activ e No family history of coronary artery disease(V49 .89) Status:Active No family history of cancer(V49.89) Status:Activ e No family history of coronary artery disease(V49 .89) Status:Active No family history of cancer(V49.89) Status:Activ e No family history of coronary artery disease(V49 .89) Status:Active No family history of cancer(V49.89) Status:Activ e No family history of coronary artery disease(V49 .89) Status:Active No family history of cancer(V49.89) Status:Activ e No family history of coronary artery disease(V49 .89) Status:Active No family history of cancer(V49.89) Status:Activ e No family history of coronary artery disease(V49 .89) Status:Active No family history of cancer(V49.89) Status:Activ e No family history of coronary artery disease(V49 .89) Status:Active No family history of cancer(V49.89) Status:Activ e No family history of coronary artery disease(V49 .89) Status:Active No family history of cancer(V49.89) Status:Activ e No family history of coronary artery disease(V49 .89) Status:Active No family history of cancer(V49.89) Status:Activ e No family history of coronary artery disease(V49 .89) Status:Active No family history of cancer(V49.89) Status:Activ e No family history of coronary artery disease(V49 .89) Status:Active No family history of cancer(V49.89) Status:Activ e No family history of coronary artery disease(V49 .89) Status:Active No family history of cancer(V49.89) Status:Activ e No family history of coronary artery disease(V49 .89) Status:Active No family history of cancer(V49.89) Status:Activ e No family history of coronary artery disease(V49 .89) Status:Active No family history of cancer(V49.89) Status:Activ e No family history of coronary artery disease(V49 .89) Status:Active No family history of cancer(V49.89) Status:Activ e No family history of coronary artery disease(V49 .89) Status:Active No family history of cancer(V49.89) Status:Activ e No family history of coronary artery disease(V49 .89) Status:Active No family history of cancer(V49.89) Status:Activ e No family history of coronary artery disease(V49 .89) Status:Active No family history of cancer(V49.89) Status:Activ e No family history of coronary artery disease(V49 .89) Status:Active No family history of cancer(V49.89) Status:Activ e No family history of coronary artery disease(V49 .89) Status:Active No family history of cancer(V49.89) Status:Activ e No family history of coronary artery disease(V49 .89) Status:Active No family history of cancer(V49.89) Status:Activ e No family history of coronary artery disease(V49 .89) Status:Active No family history of cancer(V49.89) Status:Activ e No family history of coronary artery disease(V49 .89) Status:Active No family history of cancer(V49.89) Status:Activ e No family history of coronary artery disease(V49 .89) Status:Active No family history of cancer(V49.89) Status:Activ e No family history of coronary artery disease(V49 .89) Status:Active No family history of cancer(V49.89) Status:Activ e No family history of coronary artery disease(V49 .89) Status:Active No family history of cancer(V49.89) Status:Activ e No family history of coronary artery disease(V49 .89) Status:Active No family history of cancer(V49.89) Status:Activ e No family history of coronary artery disease(V49 .89) Status:Active No family history of cancer(V49.89) Status:Activ e No family history of coronary artery disease(V49 .89) Status:Active No family history of cancer(V49.89) Status:Activ e No family history of coronary artery disease(V49 .89) Status:Active No family history of cancer(V49.89) Status:Activ e No family history of coronary artery disease(V49 .89) Status:Active No family history of cancer(V49.89) Status:Activ e No family history of coronary artery disease(V49 .89) Status:Active No family history of cancer(V49.89) Status:Activ e No family history of coronary artery disease(V49 .89) Status:Active No family history of cancer(V49.89) Status:Activ e No family history of coronary artery disease(V49 .89) Status:Active No family history of cancer(V49.89) Status:Activ e No family history of coronary artery disease(V49 .89) Status:Active Advance Directives No Advanced Directives Records FoundDocuments on File Type Date Recorded Patient Institution Director Expl anation Advance Directives and Living Will Power of Dairy Tester Documents on File Type Date Recorded Patient Institution Director Expl anation ACP-Advance Directive ACP-Power of Dairy Tester Documents on File Type Date Recorded Patient Institution Director Expl anation ACP-Advance Directive ACP-Power of Dairy Tester Documents on File Type Date Recorded Patient Institution Director Expl anation Advance Directive(s) 09/15/2021 8:05 AM Advance Directive(s) 09/15/2021 7:25 PM Advance Directive(s) 09/08/2021 2:20 PM Advance Directive(s) 09/07/2021 10:43 PM Advance Directive(s) 08/24/2021 11:59 PM Advance Directive(s) 08/19/2021 8:49 PM Advance Directive(s) 08/17/2021 2:02 AM Advance Directive(s) 08/15/2021 7:29 AM Advance Directive(s) 08/15/2021 7:50 AM Advance Directive(s) 08/12/2021 2:02 PM Advance Directive(s) 07/25/2021 2:22 PM Advance Directive(s) 07/23/2021 6:06 PM Advance Directive(s) 07/18/2021 9:28 AM Advance Directive(s) 07/17/2021 9:09 PM Advance Directive(s) 07/15/2021 4:56 PM Advance Directive(s) 07/06/2021 2:20 AM Advance Directive(s) 07/02/2021 2:58 PM Advance Directive(s) 06/29/2021 12:45 PM Advance Directive(s) 06/29/2021 3:22 PM Advance Directive(s) 06/28/2021 6:48 PM Advance Directive(s) 06/25/2021 3:50 AM Advance Directive(s) 06/22/2021 7:52 AM Advance Directive(s) 06/22/2021 5:09 PM Advance Directive(s) 06/15/2021 7:39 AM Advance Directive(s) 06/14/2021 11:14 PM Advance Directive(s) 06/09/2021 4:51 PM Advance Directive(s) 06/04/2021 3:08 PM Advance Directive(s) 06/02/2021 4:11 PM Advance Directive(s) 04/29/2021 9:35 PM Advance Directive(s) 04/25/2021 7:29 PM Advance Directive(s) 04/24/2021 8:53 AM Advance Directive(s) 04/23/2021 11:01 PM Advance Directive(s) 04/06/2021 7:33 AM Advance Directive(s) 02/24/2021 11:22 PM Advance Directive(s) 02/21/2021 2:56 AM Advance Directive(s) 02/17/2021 5:07 PM Advance Directive(s) 02/16/2021 2:28 PM Advance Directive(s) 02/12/2021 8:32 AM Advance Directive(s) 02/10/2021 10:02 AM Advance Directive(s) 02/09/2021 4:42 PM Advance Directive(s) 02/06/2021 6:30 PM Advance Directive(s) 02/04/2021 2:16 PM Advance Directive(s) 02/02/2021 10:21 AM Advance Directive(s) 02/01/2021 2:39 PM Advance Directive(s) 01/30/2021 4:21 PM Advance Directive(s) 01/29/2021 2:06 PM Advance Directive(s) 01/28/2021 3:51 PM Advance Directive(s) 01/27/2021 12:44 PM Advance Directive(s) 01/26/2021 6:40 AM Advance Directive(s) 09/29/2018 11:08 PM Advance Directive Response Recorded Date/ Time Advance Directives No May 10, 2019 8:48pm Assessments Diagnosis Lightheadedness Dizziness and giddiness History of hypertension Personal history of other diseases of circulatory system Pain, dental Unspecified disorder of the teeth and supporting structures Diagnosis Suspected COVID-19 virus infection Diagnosis Chest pain, unspecified type Diagnosis Cough Primary hypertension Unspecified essential hypertension Diagnosis Hypertension, unspecified type Diagnosis Accelerated hypertension- Primary Essential hypertension, malignant Discharge Instructions * Attachments The following attachments cannot be sent through Care Everywhere. * Lightheadedness or Faintness (Zimbabwean) documented in this encounter* Attachments The following attachments cannot be sent through Care Everywhere. * Chest Pain (Zimbabwean) documented in this encounter* Attachments The following attachments cannot be sent through Care Everywhere. * Cough (Zimbabwean) * Hypertension (Zimbabwean) documented in this encounter* Instructions* Howard Ayon, - 12/15/2019 Patient has what appears to be hypertension. Patient is instructed to take his medications as currently prescribed. He is instructed [facility] and call for an appointment to establish as a primary care patient. He is instructed to return to the nearest emergency room immediately for any new or worsening complaints. * Attachments The following attachments cannot be sent through Care Everywhere. * Hypertension: General Info (Zimbabwean) * Low Sodium Diet (Zimbabwean) * Diet: DASH (Zimbabwean) documented in this encounter* Attachments The following attachments cannot be sent through Care Everywhere. * Hypertension: General Info (Zimbabwean) * Diet: DASH (Zimbabwean) documented in this encounter Chief Complaint New pt visit, 50 y/o male here today having trouble swallowing.Nov/EstcareFollow up; has prescription for Omeprazole, but has not picked it up and is not taking.Follow up; has prescription for Omeprazole, but has not picked it up and is not taking.Follow up; has prescription for Omeprazole, but has not picked it up and is not taking.lower back painFollow up; has prescription for Omeprazole, but has not picked it up and is not taking.F/u to hospital stay/complaining of chest painRAEVELINA ALVAREZ is being seen for chest pain and hypertension.* The patient presents to the office today for a routine follow up exam. * A telephone visit (audio only) between the patient (at the originating site) and the provider (at the distant site) was utilized to provide this telehealth service. * Verbal consent was requested and obtained from HOSEA ALVAREZ on this date, 08/30/2021 01:00 PM , for a telehealth visit. This is a 51 year old White male patient currently inconsistently housed, staying in [facility] and [place] with his lady friend. 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 Patient was referred by his primary care doctor due to frequent ED visits. Patient is interested in case management services to support him in remembering and attending medical appointments.* A telephone visit (audio only) between the patient (at the originating site) and the provider (at the distant site) was utilized to provide this telehealth service. * Verbal consent was requested and obtained from HOSEA ALVAREZ on this date, 09/08/2021 10:00 AM , for a telehealth visit. * Nutrition Services Assistant spoke with patient on the phone to provide CPST service of symptom monitoring related to hishealth problems. Nutrition Services Assistant met with patient in the community for initial assessment. This is a 51 year old White male patient currently inconsistently housed, staying in [facility] and [place] withhis lady friend. 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 Patient was referred by his primary care doctor due to frequent ED visits. Patient is interested in case management services to support him in remembering and attending medical appointments.* A telephone visit (audio only) between the patient (at the originating site) and the provider (at the distant site) was utilized to provide this telehealth service. * Verbal consent was requested and obtained from HOSEA ALVAREZ on this date, 11/06/2021 04:00 PM , for a telehealth visit. * Nutrition Services Assistant met with patient on the phone to provide CPST service of symptom monitoring related to his healthcare. * A telephone visit (audio only) between the patient (at the originating site) and the provider (at the distant site) was utilized to provide this telehealth service. * Verbal consent was requested and obtained from HOSEA ALVAREZ on this date, 11/15/2021 01:00 PM , for a telehealth visit. * Nutrition Services Assistant met with patient on the phone to provide TBS service of identifying treatment options. * A telephone visit (audio only) between the patient (at the originating site) and the provider (at the distant site) was utilized to provide this telehealth service. * Verbal consent was requested and obtained from HOSEA ALVAREZ on this date, 11/23/2021 03:00 PM , for a telehealth visit. * Nutrition Services Assistant spoke with patient on the phone to provide CPST service of symptom monitoring. Reason for Referral Status Reason Specialty Diagnoses / Procedures Referre d By Contact Referred To Contact Open Radiology Diagnoses Dysphagia, unspecified type Procedures FL ESOPHAGRAM Will Carter [address] [address] [place] [address] Chief Complaint and Reason for Visit Chief Complaint n/v Chief Complaint n/v DIZZY Chief Complaint abd pain Chief Complaint abd pain constipation/abd. pain Chief Complaint abd pain constipation/abd. pain shaking all day Reason for Visit Constipation Chief Complaint abd pain constipation/abd. pain shaking all day Chest pain anxiety Reason for Visit Constipation Additional Source Comments (unrecognized sect ion and content) No Status Records FoundNo Status Records FoundNo Status Records FoundNo Status Records FoundNo Status Records FoundNo Status Records FoundNo Status Records FoundNo Status Records FoundNo Status Records FoundNo Status Records FoundNo Status Records FoundNo Status Records FoundNo Status Records FoundNo Status Records FoundNo Status Records FoundNo Status Records FoundNo Status Records FoundNo Status Records FoundNo Status Records FoundNo Status Records FoundNo Status Records FoundNo Status Records FoundNo Status Records FoundNo Status Records FoundNo Status Records FoundNo Status Records FoundNo Status Records FoundNo Status Records FoundNo Status Records FoundNo Status Records FoundNo Status Records FoundNo Status Records FoundNo Status Records FoundNo Status Records FoundNo Status Records FoundNo Status Records FoundNo Status Records FoundNo Status Records FoundNo Status Records FoundNo Status Records FoundNo Status Records FoundNo Status Records FoundNo Status Records FoundNo Status Records FoundNo Status Records FoundNo Status Records FoundNo Status Records FoundNo Status Records FoundNo Status Records FoundNo Status Records Found INFORMATION SOURCE (unrecogn ized section and content) DATE CREATED AUTHOR 03/11/2018 [facility] DATE CREATED AUTHOR AUTHOR'S ORGANIZ ATION 04/18/2018 [facility] DATE CREATED AUTHOR AUTHOR'S ORGANIZ ATION 03/21/2019 [facility] [place] [place] DATE CREATED AUTHOR AUTHOR'S ORGANIZ ATION 12/15/2019 [facility] DATE CREATED AUTHOR AUTHOR'S ORGANIZ ATION 02/10/2020 [facility] DATE CREATED AUTHOR AUTHOR'S ORGANIZ ATION 02/15/2021 [facility] DATE CREATED AUTHOR AUTHOR'S ORGANIZ ATION 04/02/2021 [facility] DATE CREATED AUTHOR AUTHOR'S ORGANIZ ATION 04/09/2021 [facility] DATE CREATED AUTHOR AUTHOR'S ORGANIZ ATION 06/04/2021 [facility] DATE CREATED AUTHOR AUTHOR'S ORGANIZ ATION 06/14/2021 [facility] DATE CREATED AUTHOR AUTHOR'S ORGANIZ ATION 06/16/2021 [facility] DATE CREATED AUTHOR AUTHOR'S ORGANIZ ATION 08/21/2021 [facility] DATE CREATED AUTHOR AUTHOR'S ORGANIZ ATION 08/24/2021 [facility] DATE CREATED AUTHOR AUTHOR'S ORGANIZ ATION 09/26/2021 [facility] DATE CREATED AUTHOR AUTHOR'S ORGANIZ ATION 11/06/2021 [facility] DATE CREATED AUTHOR AUTHOR'S ORGANIZ ATION 12/01/2021 [facility] DATE CREATED AUTHOR AUTHOR'S ORGANIZ ATION 02/17/2022 [facility] DATE CREATED AUTHOR AUTHOR'S ORGANIZ ATION 02/28/2022 [facility] DATE CREATED AUTHOR AUTHOR'S ORGANIZ ATION 04/10/2022 [facility] DATE CREATED AUTHOR AUTHOR'S ORGANIZ ATION 01/15/[address] [facility] DATE CREATED AUTHOR AUTHOR'S ORGANIZ ATION 01/25/2023 [facility] DATE CREATED AUTHOR AUTHOR'S ORGANIZ ATION 01/31/2023 [facility] DATE CREATED AUTHOR AUTHOR'S ORGANIZ ATION 02/03/2023 [facility] DATE CREATED AUTHOR AUTHOR'S ORGANIZ ATION 02/05/2023 [facility] DATE CREATED AUTHOR AUTHOR'S ORGANIZ ATION 04/23/2023 [facility] DATE CREATED AUTHOR AUTHOR'S ORGANIZ ATION 05/15/2023 [facility] DATE CREATED AUTHOR AUTHOR'S ORGANIZ ATION 05/19/2023 [facility] DATE CREATED AUTHOR AUTHOR'S ORGANIZ ATION 05/29/2023 [facility] DATE CREATED AUTHOR AUTHOR'S ORGANIZ ATION 05/29/[address] [facility] DATE CREATED AUTHOR AUTHOR'S ORGANIZ ATION 06/01/2023 [facility] DATE CREATED AUTHOR AUTHOR'S ORGANIZ ATION 06/06/2023 [facility] DATE CREATED AUTHOR AUTHOR'S ORGANIZ ATION 06/09/2023 [facility] DATE CREATED AUTHOR AUTHOR'S ORGANIZ ATION 06/15/2023 [facility] DATE CREATED AUTHOR AUTHOR'S ORGANIZ ATION 07/07/2023 [facility] DATE CREATED AUTHOR AUTHOR'S ORGANIZ ATION 07/13/2024 [facility] DATE CREATED AUTHOR AUTHOR'S ORGANIZ ATION 2024 Kendra Ayala [facility] DATE CREATED AUTHOR AUTHOR'S ORGANIZ ATION 07/27/2024 [facility] DATE CREATED AUTHOR AUTHOR'S ORGANIZ ATION 07/30/2024 [facility] DATE CREATED AUTHOR AUTHOR'S ORGANIZ ATION 07/31/2024 [facility] Reason for Visit (unrecogniz ed section and content) Reason Comments Dizziness Chest Pain left chest pain 11/02 - states it comes and goes today- was in [facility] last week for hypertension- also states was around active Covid 19 patients Reason Comments Chest Pain Pt states that he [facility] s [facility] chest and back pressure and was tested for covid (test is in process), states that is pain was intermitent and is now continuous; Pt states that he has an aortic aneurysm and was told that he was should get a MRI to assess the aneurysm, states his aneurysm was assessed 3 months ago; Reason Comments Cough Reason Comments Hypertension Reason Comments Hypertension Dizziness Reason Comments Chest Pain Rt upper chest tight ness and shoulder pain. Reason Comments Shoulder Pain Chest Pain Status Reason Specialty Diagnoses / Procedures Referred By Contact Referred To Contact Pending Review Radiology Diagnoses Dysphagia, unspecified Procedures FL BARIUM SWALLOW Will Carter [address] [place] [address] [facility] [address] [place] [address] Reason Comments Dehydration Was hitch hiking ton ight. Feels he is dehydrated. Took extra BP med by mistake Reason Comments Abdominal Pain With emesis, left [facility] ED and went [facility] and called EMS Reason Comments Abdominal Pain Reason Comments Dizziness Dizziness upon stand ing <item><item><item><item><item><item><item><item><item><item><item><item><item><i tem><item><item><item><item><item><item><item><item><item><item><item><item><ite m><item><item><item><item><item><item> Privacy Markings (unrecogniz ed section and content) Section Author: Kendra Rao PROHIBITION ON REDISCLOSURE OF CONFIDENTIAL INFORMATION This notice accompanies a disclosure of information concerning a client made to you with the consent of such client. Section Author: Kendra Rao PROHIBITION ON REDISCLOSURE OF CONFIDENTIAL INFORMATION This notice accompanies a disclosure of information concerning a client made to you with the consent of such client. Section Author: Kendra Rao PROHIBITION ON REDISCLOSURE OF CONFIDENTIAL INFORMATION This notice accompanies a disclosure of information concerning a client made to you with the consent of such client. Section Author: Kendra Rao PROHIBITION ON REDISCLOSURE OF CONFIDENTIAL INFORMATION This notice accompanies a disclosure of information concerning a client made to you with the consent of such client. Section Author: Kendra Rao PROHIBITION ON REDISCLOSURE OF CONFIDENTIAL INFORMATION This notice accompanies a disclosure of information concerning a client made to you with the consent of such client. Section Author: Kendra Rao PROHIBITION ON REDISCLOSURE OF CONFIDENTIAL INFORMATION This notice accompanies a disclosure of information concerning a client made to you with the consent of such client. Section Author: Kendra Rao PROHIBITION ON REDISCLOSURE OF CONFIDENTIAL INFORMATION This notice accompanies a disclosure of information concerning a client made to you with the consent of such client. Section Author: Kendra Rao PROHIBITION ON REDISCLOSURE OF CONFIDENTIAL INFORMATION This notice accompanies a disclosure of information concerning a client made to you with the consent of such client. Section Author: Kendra Roa PROHIBITION ON REDISCLOSURE OF CONFIDENTIAL INFORMATION This notice accompanies a disclosure of information concerning a client made to you with the consent of such client. Section Author: Kendra Rao PROHIBITION ON REDISCLOSURE OF CONFIDENTIAL INFORMATION This notice accompanies a disclosure of information concerning a client made to you with the consent of such client. Section Author: Kendra Rao PROHIBITION ON REDISCLOSURE OF CONFIDENTIAL INFORMATION This notice accompanies a disclosure of information concerning a client made to you with the consent of such client. Section Author: Kendra Rao PROHIBITION ON REDISCLOSURE OF CONFIDENTIAL INFORMATION This notice accompanies a disclosure of information concerning a client made to you with the consent of such client. Section Author: Kendra Rao PROHIBITION ON REDISCLOSURE OF CONFIDENTIAL INFORMATION This notice accompanies a disclosure of information concerning a client made to you with the consent of such client. Section Author: Kendra Rao PROHIBITION ON REDISCLOSURE OF CONFIDENTIAL INFORMATION This notice accompanies a disclosure of information concerning a client made to you with the consent of such client. Section Author: Kendra Rao PROHIBITION ON REDISCLOSURE OF CONFIDENTIAL INFORMATION This notice accompanies a disclosure of information concerning a client made to you with the consent of such client. Section Author: eKndra Rao PROHIBITION ON REDISCLOSURE OF CONFIDENTIAL INFORMATION This notice accompanies a disclosure of information concerning a client made to you with the consent of such client. Section Author: Kendra Rao PROHIBITION ON REDISCLOSURE OF CONFIDENTIAL INFORMATION This notice accompanies a disclosure of information concerning a client made to you with the consent of such client. Section Author: Kendra Rao PROHIBITION ON REDISCLOSURE OF CONFIDENTIAL INFORMATION This notice accompanies a disclosure of information concerning a client made to you with the consent of such client. Section Author: Kendra Rao PROHIBITION ON REDISCLOSURE OF CONFIDENTIAL INFORMATION This notice accompanies a disclosure of information concerning a client made to you with the consent of such client. Section Author: Kendra Rao PROHIBITION ON REDISCLOSURE OF CONFIDENTIAL INFORMATION This notice accompanies a disclosure of information concerning a client made to you with the consent of such client. Section Author: Kendra Rao PROHIBITION ON REDISCLOSURE OF CONFIDENTIAL INFORMATION This notice accompanies a disclosure of information concerning a client made to you with the consent of such client. Section Author: Kendra Rao PROHIBITION ON REDISCLOSURE OF CONFIDENTIAL INFORMATION This notice accompanies a disclosure of information concerning a client made to you with the consent of such client. Section Author: Kendra Rao PROHIBITION ON REDISCLOSURE OF CONFIDENTIAL INFORMATION This notice accompanies a disclosure of information concerning a client made to you with the consent of such client. Section Author: Kendra Rao PROHIBITION ON REDISCLOSURE OF CONFIDENTIAL INFORMATION This notice accompanies a disclosure of information concerning a client made to you with the consent of such client. Section Author: Kendra Rao PROHIBITION ON REDISCLOSURE OF CONFIDENTIAL INFORMATION This notice accompanies a disclosure of information concerning a client made to you with the consent of such client. Section Author: Kendra Rao PROHIBITION ON REDISCLOSURE OF CONFIDENTIAL INFORMATION This notice accompanies a disclosure of information concerning a client made to you with the consent of such client. Section Author: Kendra Rao PROHIBITION ON REDISCLOSURE OF CONFIDENTIAL INFORMATION This notice accompanies a disclosure of information concerning a client made to you with the consent of such client. Section Author: Kendra Rao PROHIBITION ON REDISCLOSURE OF CONFIDENTIAL INFORMATION This notice accompanies a disclosure of information concerning a client made to you with the consent of such client. Section Author: Kendra Rao PROHIBITION ON REDISCLOSURE OF CONFIDENTIAL INFORMATION This notice accompanies a disclosure of information concerning a client made to you with the consent of such client. Section Author: Kendra Rao PROHIBITION ON REDISCLOSURE OF CONFIDENTIAL INFORMATION This notice accompanies a disclosure of information concerning a client made to you with the consent of such client. Section Author: Kendra Rao PROHIBITION ON REDISCLOSURE OF CONFIDENTIAL INFORMATION This notice accompanies a disclosure of information concerning a client made to you with the consent of such client. Section Author: Kendra Rao PROHIBITION ON REDISCLOSURE OF CONFIDENTIAL INFORMATION This notice accompanies a disclosure of information concerning a client made to you with the consent of such client. Section Author: Kendra Rao PROHIBITION ON REDISCLOSURE OF CONFIDENTIAL INFORMATION This notice accompanies a disclosure of information concerning a client made to you with the consent of such client. Section Author: Kendra Rao PROHIBITION ON REDISCLOSURE OF CONFIDENTIAL INFORMATION This notice accompanies a disclosure of information concerning a client made to you with the consent of such client. Section Author: Kendra Rao PROHIBITION ON REDISCLOSURE OF CONFIDENTIAL INFORMATION This notice accompanies a disclosure of information concerning a client made to you with the consent of such client. Section Author: Kendra Rao PROHIBITION ON REDISCLOSURE OF CONFIDENTIAL INFORMATION This notice accompanies a disclosure of information concerning a client made to you with the consent of such client. Section Author: Kendra Rao PROHIBITION ON REDISCLOSURE OF CONFIDENTIAL INFORMATION This notice accompanies a disclosure of information concerning a client made to you with the consent of such client. Section Author: Kendra Rao PROHIBITION ON REDISCLOSURE OF CONFIDENTIAL INFORMATION This notice accompanies a disclosure of information concerning a client made to you with the consent of such client. Section Author: Kendra Rao PROHIBITION ON REDISCLOSURE OF CONFIDENTIAL INFORMATION This notice accompanies a disclosure of information concerning a client made to you with the consent of such client. Section Author: Kendra Rao PROHIBITION ON REDISCLOSURE OF CONFIDENTIAL INFORMATION This notice accompanies a disclosure of information concerning a client made to you with the consent of such client. Section Author: Kendra Rao PROHIBITION ON REDISCLOSURE OF CONFIDENTIAL INFORMATION This notice accompanies a disclosure of information concerning a client made to you with the consent of such client. Section Author: Kendra Rao PROHIBITION ON REDISCLOSURE OF CONFIDENTIAL INFORMATION This notice accompanies a disclosure of information concerning a client made to you with the consent of such client. Section Author: Kendra Rao PROHIBITION ON REDISCLOSURE OF CONFIDENTIAL INFORMATION This notice accompanies a disclosure of information concerning a client made to you with the consent of such client. Section Author: Kendra Rao PROHIBITION ON REDISCLOSURE OF CONFIDENTIAL INFORMATION This notice accompanies a disclosure of information concerning a client made to you with the consent of such client. Section Author: Kendra Rao PROHIBITION ON REDISCLOSURE OF CONFIDENTIAL INFORMATION This notice accompanies a disclosure of information concerning a client made to you with the consent of such client. Section Author: Kendra Rao PROHIBITION ON REDISCLOSURE OF CONFIDENTIAL INFORMATION This notice accompanies a disclosure of information concerning a client made to you with the consent of such client. Section Author: Kendra Rao PROHIBITION ON REDISCLOSURE OF CONFIDENTIAL INFORMATION This notice accompanies a disclosure of information concerning a client made to you with the consent of such client. Section Author: Kendra Rao PROHIBITION ON REDISCLOSURE OF CONFIDENTIAL INFORMATION This notice accompanies a disclosure of information concerning a client made to you with the consent of such client. Section Author: Kendra Rao PROHIBITION ON REDISCLOSURE OF CONFIDENTIAL INFORMATION This notice accompanies a disclosure of information concerning a client made to you with the consent of such client. Section Author: Kendra Rao PROHIBITION ON REDISCLOSURE OF CONFIDENTIAL INFORMATION This notice accompanies a disclosure of information concerning a client made to you with the consent of such client. Section Author: Kendra Rao PROHIBITION ON REDISCLOSURE OF CONFIDENTIAL INFORMATION This notice accompanies a disclosure of information concerning a client made to you with the consent of such client. Goals (unrecognized section and content) Goals from 03/18/2021 4:28 PM:Goal for Mobility : Maintain active lifestyle as tolerated Patient Stated Goals from 03/18/2021 4:28 PM:Patient's Personal Life Style and Recovery Goal : obtain diagnosis for symptomsPatient's Personal Life Style and Recovery Plan : schedule and keep follow up appointments. Goals may be documented in an alternate sectionGoals may be documented in an alternate section No data available for this section No data available for this sectionGoals may be documented in an alternate sectionGoals may be documented in an alternate sectionGoals may be documented in an alternate section No data available for this sectionGoals may be documented in an alternate section No data available for this section No data available for this section No data available for this section Ordered Prescriptions (unrec ognized section and content) Prescription Sig Dispensed Refills Start Date End Da te omeprazole (PRILOSEC) 20 MG delayed release capsule Take 1 capsule by mouth Daily for 14 days 14 capsule 0 03/29/2021 04/12/2021 Prescription Sig Dispensed Refills Start Date End Da te docusate sodium (COLACE) 100 MG capsule Take 1 capsule by mouth daily for 15 days 15 capsule 0 02/01/2023 02/16/2023 polyethylene glycol (GLYCOLAX) 17 GM/SCOOP powder Take 17 g by mouth daily 510 g 0 02/01/2023 03/03/2023 lidocaine viscous hcl (XYLOCAINE) 2 % SOLN solution Take 5 mLs by mouth every 4 hours as needed for Pain 100 mL 0 02/01/2023 Scheduled Active and Recently Administ ered Medications (unrecognized section and content) Medication Order 03/27/2021 03/28/2021 03/29/2021 0.9 % sodium chloride bolus (COMPLETED) 1,000 mL (11.8 mL/kg), Intravenous, at 500 mL/hr, Administer over 2 Hours, ONCE, On Sat03/29/21 at 1900, For 1 dose 1934 (New Bag - Prov ider: Kacey Roach RN)2110 (Stopped - Provider: Kacey Roach RN) aluminum & magnesium hydroxide-simethicone (MAALOX) 30 mL, lidocaine viscous hcl (XYLOCAINE) 5 mL (GI COCKTAIL) (COMPLETED) Oral, ONCE, On Sat03/29/21 at 2035, For 1 dose, Take 5 mL from lidocaine viscous 2% cup and mix with 30 mL of maalox and then administer. 2112 (Given - Provid er: Kacey Roach RN) ketorolac (TORADOL) injection 30 mg (COMPLETED) 30 mg, Intravenous, ONCE, On Sat03/29/21 at 2020, For 1 dose 2112 (Given - Provid er: Kacey Roach RN) Scheduled Medication Order 03/28/2021 03/29/2021 03/30/2021 LORazepam (ATIVAN) injection 1 mg 1 mg, Intravenous, ONCE, On Michaelle 03/30/21 at 1253, For 1 dose 142 (Not Given - Pr ovider: Jillian Thurman RN - Reason: Patient/family refused) Scheduled Medication Order 01/30/2023 01/31/2023 02/01/2023 0.9 % sodium chloride bolus (COMPLETED) 1,000 mL (11 mL/kg), IntraVENous, at 2,000 mL/hr, Administer over 30 Minutes, ONCE, On Sat02/01/23 at 0045, For 1 dose, May be administered over 15 minutes if well tolerated. 0110 (New Bag - Prov ider: Evelyne Barrett RN)0201 (Stopped - Provider: Jacki Jensen RN) 0.9 % sodium chloride bolus (COMPLETED) 1,000 mL (11 mL/kg), IntraVENous, at 2,000 mL/hr, Administer over 30 Minutes, ONCE, On Sat02/01/23 at 0145, For 1 dose, May be administered over 15 minutes if well tolerated. 0202 (New Bag - Prov ider: Jacki Jensen RN)0307 (Stopped - Provider: Jacki Jensen RN) aluminum & magnesium hydroxide-simethicone (MAALOX) 30 mL, lidocaine viscous hcl (XYLOCAINE) 5 mL (GI COCKTAIL) (COMPLETED) Oral, ONCE, On Sat02/01/23 at 0400, For 1 dose, Take 5 mL from lidocaine viscous 2% cup and mix with 30 mL of maalox and then administer. 0408 (Given - Provid er: Jacki Jensen RN) Scheduled Medication Order 01/30/2023 01/31/2023 02/01/2023 0.9 % sodium chloride bolus (COMPLETED) 1,000 mL (11 mL/kg), IntraVENous, at 1,935.5 mL/hr, Administer over 31 Minutes, ONCE, On Sat02/01/23 at 0800, For 1 dose, May be administered over 30 minutes if well tolerated. 0808 (New Bag - Prov ider: Sea Pagan, BROOKLYNN)0958 (Stopped - Provider: Max Rhodes RN) dicyclomine (BENTYL) injection 20 mg 20 mg, IntraMUSCular, ONCE, 1 dose, On Sat02/01/23 at 0800 0810 (Not Given - Pr ovider: Sea Pagan RN - Reason: Patient/family refused) ondansetron (ZOFRAN) injection 4 mg 4 mg, IntraVENous, ONCE, 1 dose, On Sat02/01/23 at 0800 0810 (Not Given - Pr ovider: Sea Pagan RN - Reason: Patient/family refused) sodium chloride flush 0.9 % injection 10 mL (COMPLETED) 10 mL, IntraVENous, ONCE, 1 dose, On 02/01/23 at 1045 1043 (Given - Provid er: Jenniffer Zambrano) PRN Medication Order 01/30/2023 01/31/2023 02/01/2023 iopamidol (ISOVUE-370) 76 % injection 90 mL (COMPLETED) 90 mL, IntraVENous, IMG ONCE PRN, 1 dose, Starting on 02/01/23 at 1031, Until Discontinued, Other 1043 (Given - Provid er: Jenniffer Zambrano) Scheduled Medication Order 01/31/2023 02/01/2023 02/02/2023 cloNIDine (CATAPRES) tablet 0.1 mg (COMPLETED) 0.1 mg, Oral, ONCE, 1 dose, On 02/02/23 at 1930 1929 (Given - Provid er: Gabrielle Potter, BROOKLYNN) hydrALAZINE (APRESOLINE) injection 20 mg (COMPLETED) 20 mg, IntraVENous, ONCE, 1 dose, On 02/02/23 at 2030 2019 (Given - Provid er: Gabrielle Potter, BROOK[place]NN) Scheduled Medication Order 05/28/2023 05/29/2023 05/30/2023 sodium chloride 0.9 % iv bolus (COMPLETED) 1,000 mL, at 9,999 mL/hr, Intravenous, FLUID BOLUS, 1 dose, On Michaelle 05/30/23 at 1457 1431 (IV New Bag - P rovider: Kimberli Fowler, BROOKLYNN)1635 (IV Stop - Provider: Kimberli Fowler RN) Source Comments (unrecognize d section and content) In the event this informatio n is protected by the Federal Confidentiality of Alcohol and Drug Abuse Patient Records regulations: The Federal rules restrict any use of the information to criminally investigate or prosecute any alcohol or drug abuse patient.[facility] Care Teams (unrecognized sec tion and content) [employer] Operator Relationship Specialty Start Date End Date Viral Amado DO [address] [place] [address] PCP - General Internal Medicine 05/24/21 [place] [id number] [facility] [place] [place] [address] Referring Cardiology 10/19/21 Team Status: Active Member Role Status Dates NON STAFF Primary Care Provider Active Team Status: Inactive Member Role Status Dates NON STAFF Primary Care Provider Active Severino Singh , DO Emergency Provider Active Team Status: Inactive Member Role Status Dates NON STAFF Primary Care Provider Active Bozena Shaw APRN Emergency Provider Active [employer] Operator Relationship Specialty Start Date End Date Kristen Bowman MD [address] [place] [facility] [address] [place] [address] PCP - General Urology 03/08/22 Viral Amado DO [address] [place] [facility] [address] [place] [address] 03/08/22 Team Status: Inactive Member Role Status Dates Gustavo Mcclelland , Emergency Provider Active St art: July 14, 2024 End: July 14, 2024 NON STAFF Primary Care Provider Active Start: July 14, 2024 End: July 14, 2024 Team Status: Inactive Member Role Status Dates NON STAFF Primary Care Provider Active Start: July 15, 2024 End: July 15, 2024 Batsheva Garcia DO Attending Provider Active St art: July 15, 2024 End: July 15, 2024 Team Status: Inactive Member Role Status Dates NON STAFF Primary Care Provider Active Start: July 15, 2024 End: July 15, 2024 Brody Montez PA-C Emergency Provider Active Start: July 15, 2024 End: July 15, 2024 Team Status: Inactive Member Role Status Dates NON STAFF Primary Care Provider Active Start: July 16, 2024 End: July 16, 2024 Jaylin Rossi MD Emergency Provider Active Start: July 16, 2024 End: July 16, 2024 Team Status: Inactive Member Role Status Dates NON STAFF Primary Care Provider Active Start: July 16, 2024 End: July 16, 2024 Gustavo Mcclelland DO Emergency Provider Active St art: July 16, 2024 End: July 16, 2024 FOR RECORDS PERTAINING TO PATIENTS WHO ARE OR HAVE BEEN ENROLLED IN A CHEMICAL DEPENDENCY/SUBSTANCEABUSE PROGRAM, SOME INFORMATION MAY BE OMITTED. This clinical summary was aggregated from multiple sources. Caution should be exercised in using it in the provision of clinical care. This summary normalizes information from multiple sources, and as a consequence, information in this document may materially change the coding, format and clinical context of patient data. In addition, data may be omitted in some cases. CLINICAL DECISIONS SHOULD BE BASED ON THE PRIMARY CLINICAL RECORDS. [facility] provides no warranty or guarantee of the accuracy or completeness of information in this document.
--- NOTE | 2024-08-02 07:33 | ED.CHESTPAI1 ---
HPI - Chest Pain General Chief Complaint: Chest Pain Stated Complaint: CHEST PAIN Time Seen by Provider: 08/02/24 07:12 Source: patient Mode of arrival: ambulance History of Present Illness HPI narrative: The patient have a hypertension at medical history coming to the ER with no acute complaint except for the fact that he needs his medication to be refilled, patient also mentioned that he have a chronic abdominal cramping that he take Bentyl for The patient is a homeless from [facility] and he is bouncing from one ER to another Related Data Home Medications ?Medication ?Instructions ?Recorded ?Confirmed clonidine HCl 0.2 mg tablet 0.2 mg PO DAILY 04/27/23 08/02/24 losartan 25 mg tablet 25 mg PO DAILY 04/27/23 08/02/24 Previous Rx's ?Medication ?Instructions ?Recorded clonidine HCl 0.2 mg tablet 0.2 mg PO DAILY 20 days #20 tabs 08/02/24 dicyclomine 20 mg tablet 20 mg PO QID PRN abdominal pain 08/02/24 #10 tabs losartan 25 mg tablet 25 mg PO DAILY 20 days #20 tabs 08/02/24 metoprolol succinate 25 mg 25 mg PO DAILY 20 days #20 tabs 08/02/24 tablet,extended release 24 hr Allergies Allergy/AdvReac Type Severity Reaction Status Date / Time erythromycin base (From AdvReac Intermediate Abdominal Verified 08/02/24 07:01 Erythrocin) Pain polyethylene glycol AdvReac Intermediate Abdominal Verified 08/02/24 07:01 Pain lorazepam (From Ativan) AdvReac Mild Abdominal Verified 08/02/24 07:01 Pain Review of Systems ROS Status of ROS 10 or more systems reviewed and unremarkable except as noted in history and below [facility] Medical History (Updated 08/02/24 @ 07:36 by Juany Cates MD) Thoracic aneurysm without mention of rupture ?I71.20 - Thoracic aortic aneurysm, without rupture, unspecified (ICD-10) Renal cyst ?N28.1 - Cyst of kidney, acquired (ICD-10) Renal artery stenosis ?I70.1 - Atherosclerosis of renal artery (ICD-10) Social History Smoking status: Former smoker Little interest or pleasure in doing things: not at all Feeling down, depressed, or hopeless: not at all Exam Narrative Exam Narrative: Nurses notes and vital signs reviewed and patient is not hypoxic. General: Well-appearing and in no apparent distress. Skin: Warm, dry, no pallor noted. No rash. Head: Normocephalic, atraumatic. Neck: Supple, non-tender. Eye: Pupils are equal, round and EOMI. No scleral icterus. Ears, Nose, Mouth, and Throat: TM are clear, no nasal mucosal hypertrophy. Oral mucosa is moist, no posterior oropharynx erythema, uvula is mid-line Cardiovascular: Regular Rate and Rhythm without murmur, gallop or rub. Respiratory: No accessory muscle use or respiratory distress. Lungs are clear to auscultation, no wheezing, rales or rhonchi Chest Wall: no tenderness Back: No midline thoracic or lumbar vertebral tenderness. No CVA tenderness Musculoskeletal: normal ROM, no calf or popliteal tenderness, no lower extremity edema/swelling GI: Abdomen is soft, non-distended. Normal bowel sounds. No masses appreciated. No tenderness to palpation. No rebound, guarding, or rigidity noted. Neurological: A&O x4. No cranial nerve dysfunction observed. No truncal ataxia. Moves all extremities. Sensation intact. Psychiatric: Cooperative and interactive. Normal mood and affect. Constitutional Vital Signs, click to edit/add: Last Vital Signs Temp 98.2 F 08/02/24 06:59 Pulse 64 08/02/24 06:59 Resp 20 08/02/24 06:59 BP 170/100 H 08/02/24 07:52 Pulse Ox 100 08/02/24 06:59 O2 Del Method Room Air 08/02/24 06:59 Course Vital Signs Vital signs: Vital Signs Temperature 98.2 F 08/02/24 06:59 Pulse Rate 64 08/02/24 06:59 Respiratory Rate 20 08/02/24 06:59 Blood Pressure 181/104 H 08/02/24 06:59 Pulse Oximetry 100 08/02/24 06:59 Oxygen Delivery Method Room Air 08/02/24 06:59 Temperature 98.2 F 08/02/24 06:59 Pulse Rate 64 08/02/24 06:59 Respiratory Rate 20 08/02/24 06:59 Blood Pressure 170/100 H 08/02/24 07:52 Pulse Oximetry 100 08/02/24 06:59 Oxygen Delivery Method Room Air 08/02/24 06:59 MDM - Chest Pain MDM Narrative Medical decision making narrative: The patient EKG showing sinus rhythm with a heart rate of [address] elevation or depression Patient have no chest pain and he does not have any acute complaint he had his medication refilled including metoprolol succinate 25 mg daily The patient is to follow up with primary care physician in next 2-3 days or to return to the emergency department should any of the signs or symptoms worsen or new symptoms develop. The patient agrees with the following Diagnosis and Treatment plan and the patient will be discharged home. Discharge Plan Discharge Chief Complaint: Chest Pain Clinical Impression: Medication refill, Benign essential HTN Patient Disposition: Home, Self-Care Time of Disposition Decision: 07:36 Condition: Good Mode of Transportation: Other Prescriptions / Home Meds: New losartan 25 mg tablet 25 mg PO DAILY 20 Days Qty: 20 0RF metoprolol succinate 25 mg tablet extended release 24 hr 25 mg PO DAILY 20 Days Qty: 20 0RF clonidine HCl 0.2 mg tablet 0.2 mg PO DAILY 20 Days Qty: 20 0RF dicyclomine 20 mg tablet 20 mg PO QID PRN (Reason: abdominal pain) Qty: 10 0RF Discontinued metoprolol tartrate 25 mg tablet 25 mg PO DAILY No Action losartan 25 mg tablet 25 mg PO DAILY clonidine HCl 0.2 mg tablet 0.2 mg PO DAILY Print Language: Kinyarwanda Instructions: Hypertension in the Older Adult (ED) Referrals: Physician,Non-Staff, MD [Primary Care Provider] - 1 week Discharge Date/Time: 08/02/24 07:55
[2024-08-02 07:52] VITALS: BP 170/100
[2024-08-02] MEDS: METOPROLOL SUCCINATE 25 MG TAB.ER.24H PO (07:52)
[2024-08-02] MEDS: DICYCLOMINE HCL 10 MG CAPSULE 20 MG PO (07:52)
[2024-08-02] MEDS: LOSARTAN POTASSIUM 25 MG TABLET PO (07:52)
--- NOTE | 2024-08-02 15:08 | ECG_ITS ---
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
== END 2024-08-02 07:55 | disposition home or self-care (01) ==
PROVIDERS: Emergency Provider Emergency Medicine
DX: Z76.0 Encounter for issue of repeat prescription (principal); I10 Essential (primary) hypertension
CPT/HCPCS: 93005; 99284

== ENCOUNTER 2024-08-09 19:18 | Emergency (ER) | payer MEDICAID, SELFPAY ==
[2024-08-09 19:20] VITALS: BP 133/85; PULSE 84; O2SAT 97; BMI 33.9
--- OUTSIDE RECORDS SUMMARY | 2024-08-09 19:27 | XMS_ITS | CCD ---
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 Communication Order Comprehensive Metabolic Panel Consult to Mental Health Drug Screen Urine ECG 12 Lead Adult eGFR Ethanol Level UA with Cult Rflx Disposition Plan Discharge Prescription List Prescriptions No active prescription medications Follow-up With When Contact Information [facility] In 3 days 08/05/2024 EST Additional Instructions: Follow-up with your primary care doctor and mental health for further evaluation management. Yang VALENCIA In 3 days 08/05/2024 EST [address] [id number] Business (1) Additional Instructions: Patient Education Panic Attack, Pkpe-hn-Gyio Problem List/Past Medical History Ongoing Abdominal pain [...] active inpatient medications Home cloNIDine 0.2 mg Tab lisinopril 20 mg Tab, 20 mg= 1 tab(s), Oral, Daily, Not taking losartan, See Instructions Metamucil 3.4 g/5.2 g oral powder, 3.4 gm, Oral, TID, PRN, 3 refills metoprolol 25 mg ER Tab, 25 mg= 1 tab(s), Oral, Daily Suprep Bowel Pre (more content not included)... Normal [facility] Comment on above: Result Comment: Elec tronically Signed By: Pasquale Nuñez DO\.br\Date and Time Signed: 08/02/24 23:55 EST ED Patient Summaryon 024 ED Patient Summary ED Patient Summary [place] [id number] Patient Discharge Instructions Person Information Name: HOSEA ALVAREZ Age: 54 Years Arrival Date: 08/02/2024 20:37:56 Discharge Diagnosis: Anxiety Primary Care Physician: Yang VALENCIA MD Provider Information Primary Provider: Pasquale Nuñez DO Advanced Retail Merchandiser Technician:None The exam and treatment you received in the Emergency Department were for an urgent problem and are not intended as complete care. It is important that you follow up with a doctor, nurse practitioner, or physician???s research assistant for ongoing care. If your symptoms become worse or you do not improve as expected and you are unable to reach your usual health care provider, you should return to the Emergency Department. We are available 24 hours a day. HOSEA ALVAREZ has been given the following list of patient education materials, prescriptions and follow-up instructions: Follow-up Instructions: With: Address: When: [facility] In 3 days 08/05/2024 Comments: Follow-up with your primary care doctor and mental health for further evaluation management. With: Address: When: Yang VALENCIA [address] [place] [phone] Business (1) In 3 days 08/05/2024 In the event that this physician does not participate in your insurance network, please consult with your insurance company to find a nearby participating provider. Patient Education Materials: Panic Attack, Zzsl-up-Qnzz A MESSAGE TO ALL PATIENTS REGARDING OPIOIDS PRESCRIPTION OPIOIDS: WHAT YOU NEED TO KNOW Prescription opioids can be used to help relieve vxsjwjjw-bd-uqutmc pain and are often prescribed following a [...] person???s prescription opioids. ??? Store prescription opioids in a secure place and out of reach of others (this may include visitors, children, friends, and family). ??? Safely dispose of unused prescription opioids: Find your community drug take-back program or your pharmacy mail-back program, or flush them down the toilet, following guidance from the Food and Drug Administration (www.fda.gov/Drugs/Resou rcesForYou). ??? Visit www. (more content not included)... Normal [facility] Ethanolon 08-02-2024 Ethanol Lvl 150 mg/dL Abnormal <=11 [facility] Comment on above: Result Comment: Crit ical Result Verified by Repeat Analysis Critical Result S_ETOH:150 Called to and read back by: DR. NUÑEZ/ER at: 08/02/2024 21:49 by:VALORIE CUTLER Performed By: #### 2 [id number] #### [facility] [address] [place] [id number] HEMATOLOGYOrdered By: SYSTEM SYSTEM on 08-02-2024 Basophils/100 WBC (Bld) 0.6 % Normal 0.0 - 2.0 % Remisol Heme Basophils/Leukocytes Auto (Bld) [Pure # fraction] 0.0 E9/L Normal 0.0 - 0.2 E9/L Remisol Heme Eosinophils (Bld) [#/Vol] 0.1 E9/L Normal 0.0 - 0.5 E9/L Remisol Heme Eosinophils/100 WBC (Bld) 2.6 % Normal 0.0 - 8.0 % Remisol Heme Erythrocyte distribution width (RBC) [Ratio] 13.6 % Normal 10.9 - 14.2 % Remisol Heme Hematocrit (Bld) [Volume fraction] 38.0 % Normal 37.7 - 49.0 % Remisol Heme Hemoglobin (Bld) [Mass/Vol] 13.2 g/dL Low 13.5 - 17.5 gm/dL Remisol Heme Lymphocytes (Bld) [#/Vol] 1.2 E9/L Normal 1.0 - 4.0 E9/L Remisol Heme Lymphocytes/100 WBC (Bld) 29.3 % Normal 14.0 - 50.0 % Remisol Heme MCH (RBC) [Entitic mass] 30.1 pg Normal 27.0 - 34.0 pg Remisol Heme MCHC (RBC) [Mass/Vol] 34.7 g/dL Normal 31.4 - 36.0 gm/dL Remisol Heme MCV (RBC) [Entitic vol] 86.9 fL Normal 80.0 - 100.0 fL Remisol Heme Monocytes (Bld) [#/Vol] 0.3 E9/L Normal 0.2 - 1.0 E9/L Remisol Heme Monocytes/100 WBC (Bld) 8.1 % Normal 4.0 - 14.0 % Remisol Heme Neutrophils (Bld) [#/Vol] 2.5 E9/L Normal 2.0 - 7.5 E9/L Remisol Heme Neutrophils/100 WBC (Bld) 59.4 % Normal 36.0 - 75.0 % Remisol Heme Platelet mean volume (Bld) [Entitic vol] 8.7 fL Normal 6.4 - 10.8 fL Remisol Heme Platelets (Bld) [#/Vol] 153.0 E9/L Normal 150.0 - 500.0 E9/L Remisol Heme RBC (Bld) [#/Vol] 4.4 E12/L Normal 4.3 - 5.9 E12/L [facility] Heme WBC corrected for nucl RBC Auto (Bld) [#/Vol] 4.3 E9/L Normal 4.0 - 11.0 E9/L Remisol Heme Pre-Arrival Noteon 4 Pre-Arrival Note Pre-Arrival Note Pre-Arrival Summary Name: REJI Current Date: 08/02/2024 20:38:22 EST Gender: Male Date of : Age: 54 Pre-Arrival Type: EMS ETA: 08/02/2024 20:57:00 EST Primary Care Physician: Presenting Problem: anxiety Pre-Arrival User: Ramya Ivey RN Referring Source: [facility] Completion Date/Time: 08/02/2024 20:27:00 [facility] Emergency Department Pre-Hospital Report Form Vital Signs: Pre-Hospital Report: Treatment in Route: Response to Treatment: Misc. Issues: Normal [facility] U Drug Screenon 08-02-2024 Amphetamines Screen method >1000 ng/mL Ql (U) Negative Normal NEGATIVE [facility] Comment on above: Result Comment: Nega tive Cutoff: <1000 ng/mL Performed By: #### 2 [id number] #### [facility] [address] [place] [address] Barbiturates Screen Ql (U) Negative Normal NEGATIVE [facility] Comment on above: Result Comment: Nega tive Cutoff: <200 ng/mL Performed By: #### 2 [id number] #### [facility] [address] [place] [address] Benzodiazepines Ql (U) Negative Normal NEGATIVE [facility] Comment on above: Result Comment: Nega tive Cutoff: <200 ng/mL Performed By: #### 2 [id number] #### [facility] [address] [place] [address] Cannabinoids Screen Ql (U) Negative Normal NEGATIVE [facility] Comment on above: Result Comment: Nega tive Cutoff: <50 ng/mL Performed By: #### 2 [id number] #### [facility] [address] [place] [address] Cocaine Ql (U) Negative Normal NEGATIVE [facility] Comment on above: Result Comment: Nega tive Cutoff: <300 ng/mL Performed By: #### 2 [id number] #### [facility] [address] [place] [address] Opiates Screen Ql (U) Negative Normal NEGATIVE [facility] Comment on above: Result Comment: Nega tive Cutoff: <300 ng/mL Performed By: #### 2 [id number] #### [facility] [address] [place] [address] Phencyclidine Screen method >25 ng/mL Ql (U) Negative Normal NEGATIVE [facility] Comment on above: Result Comment: Nega tive Cutoff: <25 ng/mL These drug screen results are to be used for medical (i.e., treatment) purposes only. Unconfirmed drug screening results must not be used for non-medical purposes (e.g., employment testing, legal testing). Performed By: #### 2 [id number] #### [facility] [address] [place] [address] U Fentanyl Negative Normal NEGATIVE [facility] Comment on above: Result Comment: Nega tive Cutoff: <5 ng/mL These drug screen results are to be used for medical (i.e., treatment) purposes only. Unconfirmed drug screening results must not be used for non-medical purposes (e.g., employment testing, legal testing). Performed By: #### 2 [id number] #### [facility] [address] [place] [address] UA with Cult Rflxon 08-02-20 24 Bilirubin Ql (U) Negative Normal Negative [facility] Comment on above: Performed By: #### 4 [id number] #### [facility] [address] [place] [address] Clarity (U) Clear Normal Clear [facility] Comment on above: Performed By: #### 4 [id number] #### [facility] [address] [place] [address] Color (U) Light-Yellow Normal Yellow [facility] Comment on above: Result Comment: Micr oscopic readings are only performed on those samples that meet specific criteria set forth by [facility]. Performed By: #### 4 [id number] #### [facility] [address] [place] [address] Glucose Ql (U) Negative Normal Negative [facility] Comment on above: Performed By: #### 4 [id number] #### [facility] [address] [place] [address] Hemoglobin Auto test strip (U) [Mass/Vol] Negative Normal Negative [facility] Comment on above: Performed By: #### 4 [id number] #### [facility] [address] [place] [address] Ketones Auto test strip Ql (U) Negative Normal Negative [facility] Comment on above: Performed By: #### 4 [id number] #### [facility] [address] [place] [address] Leukocyte esterase Auto test strip Ql (U) Negative Normal Negative [facility] Comment on above: Performed By: #### 4 [id number] #### [facility] [address] [place] [address] Nitrite Auto test strip Ql (U) Negative Normal Negative [facility] Comment on above: Performed By: #### 4 [id number] #### [facility] [address] [place] [address] pH (U) 5.0 [pH] Invalid Interpretation Code 5.0-9.0 [facility] Comment on above: Performed By: #### 4 [id number] #### [facility] [address] [place] [address] Protein Ql (U) Negative Normal Negative [facility] Comment on above: Performed By: #### 4 [id number] #### [facility] [address] [place] [address] Specific gravity (U) [Rel density] 1.012 Invalid Interpretation Code 1.005-1.030 [facility] Comment on above: Performed By: #### 4 [id number] #### [facility] [address] [place] [address] Urobilinogen (U) [Mass/Vol] Negative Normal Negative [facility] Comment on above: Performed By: #### 4 [id number] #### [facility] [address] [place] [address] Type of Urine collection method Clean Catch Normal [facility] Comment on above: Performed By: #### 4 [id number] #### [facility] [address] [id number] URINALYSISOrdered By: SYSTEM SYSTEM on 08-02-2024 Bilirubin Ql (U) Negative Normal Negativemg/ d L [facility] UA Auto SS Clarity (U) Clear (08/02/24 9:31 PM) Normal Clear [facility] UA Auto SS Color (U) Light-Yellow 3 (08/02/24 9:31 PM) Normal Yellow [facility] UA Auto SS Comment on above: Interpretive Data: M icroscopic readings are only performed on those samples that meet specific criteria set forth by [facility]. Glucose Ql (U) Negative Normal Negativemg/d L [facility] UA Auto SS Hemoglobin Auto test strip (U) [Mass/Vol] Negative Normal Negativemg/d L [facility] UA Auto SS Ketones Auto test strip Ql (U) Negative Normal Negativemg/d L [facility] UA Auto SS Leukocyte esterase Auto test strip Ql (U) Negative Normal NegativeLeu/ uL [facility] UA Auto SS Nitrite Auto test strip Ql (U) Negative Normal Negativemg/d L [facility] UA Auto SS pH (U) 5.0 *NA* (08/02/24 9:31 PM) Invalid Interpretation Code 5.0 - 9.0 [facility] UA Auto SS Protein Ql (U) Negative Normal Negativemg/d L [facility] UA Auto SS Specific gravity (U) [Rel density] 1.012 *NA* (08/02/24 9:31 PM) Invalid Interpretation Code 1.005 - 1.030 [facility] UA Auto SS Urobilinogen (U) [Mass/Vol] Negative Normal Negativemg/d L [facility] UA Auto SS URINALYSISOrdered By: Chen Nuñez on 08-02-2024 UA Spec Desc Clean Catch (08/02/24 9:31 PM) Normal [facility] UA Auto SS eGFRon 08-02-2024 eGFR 72 mL/min/1.73 m2 Normal >=59 [facility] Comment on above: Performed By: #### 1 [id number] #### [facility] [address] [place] [address] CBC AND AUTO DIFFon 07-25-20 ABSOLUTE BASOPHIL 0.0 X10E9/L Normal 0.0-0.2 [facility] Comment on above: Performed By: #### C BCA, CMP, 5643-2, 73276-7, 85246-4 #### [facility] ([id number]) [address] [place] [address] ABSOLUTE NEUTROPHIL 2.4 X10E9/L Normal 1.5-6.6 [facility] Comment on above: Performed By: #### C BCA, CMP, 5643-2, , 34852-9 #### [facility] ([id number]) [address] [place] [address] Basophils/100 WBC (Bld) 0.3 % Normal [facility] Comment on above: Performed By: #### C BCA, CMP, 5643-2, 39692-7, 91956-8 #### [facility] ([id number]) [address] [place] [address] Eosinophils (Bld) [#/Vol] 0.1 10*3/uL Normal 0.0-0.4 [facility] Comment on above: Performed By: #### C BCA, CMP, 5643-2, 82410-5, 87448-5 #### [facility] ([id number]) [address] [place] [address] Eosinophils/100 WBC (Bld) 2.6 % Normal [facility] Comment on above: Performed By: #### C LOTUS HUDSON, 5643-2, , 40924-5 #### [facility] ([id number]) [address] [place] [address] Erythrocyte distribution width (RBC) [Ratio] 13.1 % Normal 11.5-15.0 [facility] Comment on above: Performed By: #### Jannet HUDSON CMP, 43-2, , 15887-8 #### [facility] ([id number]) [address] [place] [address] Hematocrit (Bld) [Volume fraction] 37.7 % Low 39-49 [facility] Comment on above: Performed By: #### Jannet HUDSON [facility], 5643-2, , 74630-7 #### [facility] ([id number]) [address] [place] [address] Hemoglobin (Bld) [Mass/Vol] 13.0 g/dL Normal 13.0-17.0 [facility] Comment on above: Performed By: #### C LOTUS HUDSON, 43-2, , 82440-7 #### [facility] ([id number]) [address] [place] [address] Lymphocytes (Bld) [#/Vol] 0.9 10*3/uL Low 1.0-3.5 [facility] Comment on above: Performed By: #### C LOTUS HUDSON, 5643-2, , 54932-5 #### [facility] ([id number]) [address] [place] [address] 21861 Lymphocytes/100 WBC (Bld) 23.8 % Normal [facility] Comment on above: Performed By: #### C TRISTAN, CMP, 5643-2, , 83657-2 #### [facility] ([id number]) [address] [place] [address] 36125 MCH (RBC) [Entitic mass] 29.6 pg Normal 27-34 [facility] Comment on above: Performed By: #### Jannet HUDSON, CMP, 5643-2, , 60702-0 #### [facility] ([id number]) [address] [place] [address] 20895 MCHC (RBC) [Mass/Vol] 34.5 g/dL Normal 32-36 [facility] Comment on above: Performed By: #### Jannet HUDSON, CMP, 5643-2, , 06894-7 #### [facility] ([id number]) [address] [place] [address] 33899 MCV (RBC) [Entitic vol] 86 fL Normal 80-100 [facility] Comment on above: Performed By: #### Jannet HUDSON, CMP, 43-2, , 95226-0 #### [facility] ([id number]) [address] [place] [address] 22027 Monocytes (Bld) [#/Vol] 0.3 10*3/uL Normal 0-0.9 [facility] Comment on above: Performed By: #### Jannet HUDSON, CMP, 5643-2, , 16345-0 #### [facility] ([id number]) [address] [place] [address] 27109 Monocytes/100 WBC (Bld) 9.0 % Normal [facility] Comment on above: Performed By: #### Jannet HUDSON, CMP, 5643-2, , 30195-7 #### [facility] ([id number]) [address] [place] [address] 23871 Neutrophils/100 WBC (Bld) 64.3 % Normal [facility] Comment on above: Performed By: #### C LOTUS HUDSON, 5643-2, , 35377-5 #### [facility] ([id number]) [address] [place] [address] 21053 Platelet mean volume (Bld) [Entitic vol] 9.4 fL Normal 7-12 [facility] Comment on above: Performed By: #### C TRISTAN, CMP, 5643-2, , 04356-3 #### [facility] ([id number]) [address] [place] [address] 25007 Platelets (Bld) [#/Vol] 144 10*3/uL Low 150-450 [facility] Comment on above: Performed By: #### C LOTUS HUDSNO, 43-2, , 69889-8 #### [facility] ([id number]) [address] [place] [address] 88621 RBC COUNT 4.40 X10E12/L Normal 4.10-5.70 [facility] Comment on above: Performed By: #### C TRISTAN, CMP, 5643-2, , 05916-3 #### [facility] ([id number]) [address] [place] [address] 31524 WBC (Bld) [#/Vol] 3.7 10*3/uL Low 4.0-11.0 [facility] Comment on above: Performed By: #### C TRISTAN, CMP, 5643-2, , 40657-0 #### [facility] ([id number]) [address] [place] [address] 79466 COMPREHENSIVE METABOLIC PANE Bart 07-25-2024 Albumin [Mass/Vol] 4.0 g/dL Normal 3.2-5.3 [facility] Comment on above: Performed By: #### C BCA, CMP, 5643-2, 17098-8, 32673-6 #### [facility] ([id number]) [address] [place] [address] 08227 ALP [Catalytic activity/Vol] 59 U/L Normal 39-130 [facility] Comment on above: Performed By: #### C BCA, CMP, 5643-2, , 83331-5 #### [facility] ([id number]) [address] [place] [address] 50377 ALT [Catalytic activity/Vol] 28 U/L Normal 0-40 [facility] Comment on above: Performed By: #### C BCA, CMP, 5643-2, , 23030-5 #### [facility] ([id number]) [address] [place] [address] 17537 Anion gap [Moles/Vol] 10 mmol/L Normal 5-15 [facility] Comment on above: Performed By: #### C BCA, CMP, 5643-2, , 21857-1 #### [facility] ([id number]) [address] [place] [address] 44147 AST [Catalytic activity/Vol] 21 U/L Normal 0-41 [facility] Comment on above: Performed By: #### C BCA, CMP, 5643-2, , 05164-1 #### [facility] ([id number]) [address] [place] [address] 59294 Bilirubin [Mass/Vol] 0.5 mg/dL Normal 0.3-1.2 [facility] Comment on above: Performed By: #### C BCA, CMP, 5643-2, 05330-8, 46468-8 #### [facility] ([id number]) [address] [place] [address] 68416 Calcium [Mass/Vol] 9.3 mg/dL Normal 8.5-10.5 [facility] Comment on above: Performed By: #### C LOTUS HUDSON, 5643-2, , 80458-7 #### [facility] ([id number]) [address] [place] [address] 98234 Chloride [Moles/Vol] 106 mmol/L Normal 98-109 [facility] Comment on above: Performed By: #### C LOTUS HUDSON, 5643-2, , 07001-5 #### [facility] ([id number]) [address] [place] [address] 57832 CO2 [Moles/Vol] 25 mmol/L Normal 22-32 [facility] Comment on above: Performed By: #### C LOTUS HUDSON, 5643-2, , 02454-9 #### [facility] ([id number]) [address] [place] [address] 94192 Creatinine [Mass/Vol] 1.20 mg/dL Normal 0.70-1.20 [facility] Comment on above: Result Comment: METH OD TRACEABLE TO IDMS STANDARD Performed By: #### C LOTUS HUDSON, 5643-2, , 90860-4 #### [facility] ([id number]) [address] [place] [address] 43803 GFR/1.73 sq M.predicted among non-blacks MDRD (S/P/Bld) [Vol rate/Area] 72 mL/min/{1.73_m2} Normal >59 [facility] Comment on above: Result Comment: Reported eGFR is based on the CKD-EPI 2020 equation that does not use a race coefficient. Performed By: #### C LOTUS HUDSON, 5643-2, 67249-6, 65326-2 #### [facility] ([id number]) [address] [place] [address] 65918 Glucose [Mass/Vol] 102 mg/dL High 65-99 [facility] Comment on above: Performed By: #### C LOTUS HUDSON, 5643-2, 86285-6, 60555-9 #### [facility] ([id number]) [address] [place] [address] 73609 Potassium [Moles/Vol] 3.8 mmol/L Normal 3.5-5.0 [facility] Comment on above: Performed By: #### C TRISTAN, LOTUS, 5643-2, , 67887-6 #### [facility] ([id number]) [address] [place] [address] 37331 Protein [Mass/Vol] 7.4 g/dL Normal 6.0-8.0 [facility] Comment on above: Performed By: #### Jannet HUDSON CMP, 5643-2, , 66408-8 #### [facility] ([id number]) [address] [place] [address] 57170 Sodium [Moles/Vol] 141 mmol/L Normal 134-146 [facility] Comment on above: Performed By: #### C LOTUS HUDSON, 5643-2, , 66517-2 #### [facility] ([id number]) [address] [place] [address] 25928 Urea nitrogen [Mass/Vol] 23 mg/dL Normal 5-23 [facility] Comment on above: Performed By: #### C TRISTAN, CMP, 5643-2, , 61003-6 #### [facility] ([id number]) [address] [place] [address] 52988 ETHANOLon 07-25-2024 Ethanol [Mass/Vol] mg/dL Normal 0.00-0.08 [facility] Comment on above: Result Comment: This report is intended for use in clinical monitoring or management of patients. Performed By: #### C LOTUS HUDSON, 5643-2, 04387-0, 18460-5 #### [facility] ([id number]) [address] [place] [address] MAGNESIUMon 07-25-2024 Magnesium [Mass/Vol] 1.8 mg/dL Normal 1.8-2.6 [facility] Comment on above: Performed By: #### C LOTUS HUDSON, 5643-2, 85602-5, 48395-9 #### [facility] ([id number]) [address] [place] [address] Troponin I.cardiac High sens itivity method [Mass/Vol]on 07-25-2024 1 HOUR TROP I, HIGH SENSITIVITY 4 ng/L Normal <21 [facility] Comment on above: Performed By: #### 8 9579-7 #### [facility] ([id number]) [address] [place] [address] 39486 TROPONIN I, HIGH SENSITIVITY 3 ng/L Normal <21 [facility] Comment on above: Performed By: #### C LOTUS HUDSON, 5643-2, 11640-2, 53251-1 #### [facility] ([id number]) [address] [place] [address] 17374 XR CHEST 1 VWon 07-25-2024 XR CHEST [...] Kay Spencer DO on 07/25/2024 3:49 AM I, Erica Dunaway MD have personally reviewed the image(s) and agree with and/or edited the report Finalized by Erica Dunaway MD on 07/25/2024 3:57 AM Normal [facility] Ambulatory Visit Summaryon 1 Ambulatory Visit Summary [...] or as directed by physician Pickup at [facility] New psyllium (Metamucil 3.4 g/ 5.2 g oral powder) 3.4 Gram By Mouth 3 times a day as needed for for constipation Abdominal pain Refills: 3 Pickup at [facility] Unchanged clonidine (cloNIDine 0.2 mg Tab) [...] physician if questions or concerns Pharmacy Information [facility]: [address] [place], [place] [id number] [phone] Allergies Ativan (Ill) Problems Ongoing - Any [...] your care. Normal [facility] Gastroenterology Office/Clin ic Noteon 2024 Gastroenterology Office/Clinic Note Gastroenterology Office/Clinic Note Chief Complaint follow up ER, abd pain HPI Staff Patient is a(n) 53 year old male who presents today for a f/u from [facility] ER 07/09/24 for history of abdominal pain. Recently moved from [place] and asked ER to send GI referral to establish care. Gave fax number to fax records to office. Any GI complaints? abd pain, blood in stool Any Fhx colon cancer? Previous EGD/Colonoscopy? four years ago, dr santiago Any hx colon cancer/polyps? hemorrhoids and diverticulitis. Blood thinners? no. GLP-1 agonists? no. dr sm[place] [facility] IMPRESSION: No acute findings. No bowel [...] box directions or as directed by physician, [facility], 167, cm, 07/20/24 11:11:00 EDT, Height/Length Dosing, 95, kg, 06/24... psyllium, 3.4 gram, Oral, TID, PRN for constipation, # 283 gram, Refills(s) 3, Pharmacy: [facility], 167, cm, 07/20/24 11:11:00 EDT, Height/Length Dosing, 95, kg, 07/20/24 11:11:00 EDT, Weight Dosing Colonoscopy (Hospital Procedure) Colonoscopy (Hospital Procedure) E&M of New Patient Moderate 45-59 Min 96529 E&M of New Patient Moderate 45-59 Min 85079 E&M of New Patient Moderate 45-59 Min 01401 EGD Endoscopy (Hospital Procedure) EGD Endoscopy (Hospital Procedure) 2. Constipation (K59.00: Constipation, unspecified) Ordered: magnesium/potassium/sodi um sulfates (obsolete), 177 mL, Oral, As Directed for 2 dose(s), 1 kit(s), Refill(s) 0, dilute each 177 ml bottle and drink according to box directions or as directed by physician, [facility], 167, cm, 07/20/24 11:11:00 EDT, Height/Length Dosing, 95, kg, 06/24... Colonoscopy (Hospital Procedure) E&M of New Patient Moderate 45-59 Min 22333 E&M of New Patient Moderate 45-59 Min 13583 EGD Endoscopy (Hospital Procedure) Follow-up No qualifying [...] Family History Family history is negative Normal [facility] Comment on above: Result Comment: Elec tronically Signed By: Jerry PEREZ, Tima Theodore\.br\Date and Time Signed: 07/20/24 11:45 EDT ED Clinical Summaryon 2023 ED Clinical Summary ED Clinical Summary [place] [address] ED Clinical Summary Person Information Name: HOSEA ALVAREZ/[facility] Age: 53 Years : 1970 Sex: Male Language: Egyptian PCP: Yang VALENCIA MD Marital Status: Single [...] 07/18/2024 00:51:27 07/18/2024 00:51:27 ADDRESS: RETURN MAIL [address] [place], [place] [id number] PHYS DOC NOTES: MEDICAL INFORMATION: Prescriptions Given: [...] Elizabet Mackay [address] [place], [place] [id number] In 3 days 07/21/2024 Comments: Call the [...] new or worsening symptoms. DIAGNOSIS: Anxiety Normal [facility] ED Note-Physicianon 07-18-20 ED Note-Physician ED Note-Physician Basic Information Time Seen: Benjamin Neil M. 07/17/2024 20:53 Chief Complaint I had an interaction with a police communications operator who told me to get out of town. I feel like I'm having a mental health disorder and a panic attack History of Present Illness 53-year-old male to the emergency department chief complaint of anxiety. Patient reports he feels like he is going to have a panic attack. Patient had interaction with the police communications operator today who told him that he needed [...] has no medical complaints. Patient talk to [facility] for 3 hours. Crisis plan. Follow-up in [...] Elizabet Mackay In 3 days 07/21/2024 EDT [address] [place] [address] Additional Instructions: Call the office of your [...] Diagnostic Results No qualifying data available. Normal [facility] Comment on above: Result Comment: Elec tronically Signed By: Neil Alexander DO\.br\Date and Time Signed: 07/18/24 00:55 EDT ED Patient Summaryon 024 ED Patient Summary ED Patient Summary [address] [address] Patient Discharge Instructions Person Information Name: HOSEA ALVAREZ Age: 53 Years Arrival Date: 07/17/2024 20:34:32 Discharge Diagnosis: Anxiety Primary Care Physician: Yang VALENCIA MD Provider Information Primary Provider: Neil Alexander DO Advanced [employer] Merchandiser Technician:None The exam and treatment you received in the Emergency Department were for an urgent problem and are not intended as complete care. It is important that you follow up with a doctor, nurse practitioner, or physician???s research assistant for ongoing care. If your symptoms [...] Instructions: With: Address: When: Elizabet Mackay [address] [facility] [address] [place], [place] [id number] In 3 days 07/21/2024 Comments: Call the [...] opioids can be used to help relieve eqgtenut-rq-wafonz pain and are often prescribed following a [...] prescription opioids (more content not included)... Normal [facility] ED Note-Physicianon 07-17-20 ED Note-Physician ED Note-Physician Basic Information Time Seen: Neil Alexander DO 07/16/2024 21:21 Chief Complaint states has been having panic attacks. states something is triggering these but andre only tell the physician. History of Present Illness 53-year-old male to the emergency department with chief complaint of panic attacks. Patient reports that amongst other places he is currently living in [facility]. He reports that he has sought care at several local emergency departments. He reports that at [facility] he was told today that he was [...] appointment for 10 AM tomorrow with the [place] office. Return precautions were discussed. All questions were answered. The patient was discharged home. Assessment/Plan Anxiety (F41.9: Anxiety disorder, unspecified) Orders: Consult to Mental Health Disposition Plan Patient Discharge Condition Stable Discharge Disposition Home Discharge Prescription List Prescriptions No active prescription medications Follow-up With When Contact Information [facility] In 3 days 07/19/2024 EDT Additional Instructions: You have an appointment at the [place] office tomorrow at 10 AM. Yang VALENCIA In 3 days 07/19/[address] [place], [place] [id number] Business (1) Additional Instructions: Call the office [...] Cigars, 05/16/2019 (more content not included)... Normal [facility] Comment on above: Result Comment: Elec tronically Signed By: Neil Alexander DO\.br\Date and Time Signed: 07/17/24 00:31 EDT Automated basophil %Ordered By: Jaylin Rossi on 07-16-2024 Basophils/100 WBC (Bld) 0.5 % Normal . [facility] Comment on above: Performed By: #### H S TROP, CBC, CK, BMP, PT, DDIMER, BNP #### [facility] [address] Automated basophil countOrde red By: Jaylin Rossi on 07-16-2024 Basophils (Bld) [#/Vol] 0.0 10*3/uL Normal 0.0-0.2 [facility] Comment on above: Result Comment: PERF ORMED BY: [facility] [address] [place] [address] PATHOLOGIST EMBROIDERY SUPERVISOR CHER LAGUNA M.D. Performed By: #### H S TROP, CBC, CK, BMP, PT, DDIMER, BNP #### [facility] [address] [place] [address] Automated blood monocyte cou ntOrdered By: Jaylin Rossi on 07-16-2024 Monocytes (Bld) [#/Vol] 0.4 10*3/uL Normal 0.0-0.8 [facility] Comment on above: Performed By: #### H S TROP, CBC, CK, BMP, PT, DDIMER, BNP #### [facility] [address] [place] [address] Automated eosinophil %Ordere d By: Jaylin Rossi on 07-16-2024 Eosinophils/100 WBC (Bld) 1.4 % Normal . [facility] Comment on above: Performed By: #### H S TROP, CBC, CK, BMP, PT, DDIMER, BNP #### [address] Automated eosinophil countOr dered By: Jaylin Rossi on 07-16-2024 Eosinophils (Bld) [#/Vol] 0.1 10*3/uL Normal 0.0-0.45 [facility] Comment on above: Performed By: #### H S TROP, CBC, CK, BMP, PT, DDIMER, BNP #### [address] Automated monocyte %Ordered By: Jaylin Rossi on 07-16-2024 Monocytes/100 WBC (Bld) 8.3 % Normal . [facility] Comment on above: Performed By: #### H S TROP, CBC, CK, BMP, PT, DDIMER, BNP #### [address] Automated neutrophil %Ordere d By: Jaylin Rossi on 07-16-2024 Neutrophils/100 WBC (Bld) 73.4 % Normal . [facility] Comment on above: Performed By: #### H S TROP, CBC, CK, BMP, PT, DDIMER, BNP #### [address] BNP ser/plasOrdered By: Bharat Rossi on 07-16-2024 Natriuretic peptide B (Bld) [Mass/Vol] 51.0 pg/mL Normal 5-100 [facility] Comment on above: Result Comment: PERF ORMED BY: [place] [address] PATHOLOGIST EMBROIDERY SUPERVISOR CHER LAGUNA M.D. Performed By: #### H S TROP, CBC, CK, BMP, PT, DDIMER, BNP #### [address] Basic Metabolic Panelon 06-24 Creatinine Clr Calc Pharmacy 84.56 Normal [facility] Comment on above: Result Comment: PERF ORMED BY: [place] [address] PATHOLOGIST EMBROIDERY SUPERVISOR CHER LAGUNA M.D. Performed By: #### H S TROP, CBC, CK, BMP, PT, DDIMER, BNP #### [address] GFR/1.73 sq M.predicted MDRD (S/P/Bld) [Vol rate/Area] mL/min/{1.73_m2} Normal [facility] Comment on above: Performed By: #### H S TROP, CBC, CK, BMP, PT, DDIMER, BNP #### [address] angio cheston 07-16-2024 CT angio chest [facility] [place] [address] [place] [address] CT Scan Report Signed Patient: Hosea Alvarez MR#: [id number] : 1970 Acct:[id number] Age/Sex: 53 / M ADM Date: 07/16/24 Loc: ER Room: Type: [facility] ER Attending Dr: Copies to: Jaylin Rossi [...] Irma Ortiz M.D.07/16/2024 3:18 PM Dictation Location: [place] [address] Transcribed By: SOL 07/16/241517 Dictated By: Irma Ortiz MD 07/16/241510 Signed By: 07/16/241517 Normal [facility] Calcium [Mass/volume] in Ser um or PlasmaOrdered By: Jaylin Rossi on 07-16-2024 Calcium [Mass/Vol] 8.4 mg/dL Low 8.6-10.3 [facility] Comment on above: Performed By: #### H S TROP, CBC, CK, BMP, PT, DDIMER, BNP #### [facility] [address] Carbon dioxide, total [Moles /volume] in Serum or PlasmaOrdered By: Jaylin Rossi on 07-16-2024 CO2 [Moles/Vol] 22.7 mmol/L Normal 21.0-31.0 [facility] Comment on above: Performed By: #### H S TROP, CBC, CK, BMP, PT, DDIMER, BNP #### [facility] [address] [place] [address] [place] Chloride [Moles/volume] in S karolyn or PlasmaOrdered By: Jaylin Rossi on 07-16-2024 Chloride [Moles/Vol] 103 mmol/L Normal 98-107 [facility] Comment on above: Performed By: #### H S TROP, CBC, CK, BMP, PT, DDIMER, BNP #### [address] Complete Blood Count Auto Di ffon 07-16-2024 Mean Corpuscular HGB Conc 33.7 g/dL Normal 32.5-35.6 [facility] Comment on above: Performed By: #### H S TROP, CBC, CK, BMP, PT, DDIMER, BNP #### [address] Monocytes/100 WBC (Bld) 18.93 % Normal 0.00-20.00 [facility] Comment on above: Performed By: #### H S TROP, CBC, CK, BMP, PT, DDIMER, BNP #### [address] NRBC% 0.2 /100{WBC} Normal 0-0.5 [facility] Comment on above: Performed By: #### H S TROP, CBC, CK, BMP, PT, DDIMER, BNP #### [address] Creatine kinase [Enzymatic a ctivity/volume] in Serum or PlasmaOrdered By: Jaylin Rossi on 07-16-2024 CK [Catalytic activity/Vol] 99 U/L Normal 30-223 [facility] Comment on above: Performed By: #### H S TROP, CBC, CK, BMP, PT, DDIMER, BNP #### [address] Creatinine [Mass/volume] in Serum or PlasmaOrdered By: Jaylin Rossi on 07-16-2024 Creatinine [Mass/Vol] 1.11 mg/dL Normal 0.70-1.30 [facility] Comment on above: Performed By: #### H S TROP, CBC, CK, BMP, PT, DDIMER, BNP #### [address] D-Dimer High Sensitivityon 1 D-Dimer High Sensitivity < 200 Normal 0-243 [facility] Comment on above: Result [...] coagulation studies. Please contact the laboratory at [phone] for redraw instructions. PERFORMED BY: [place] [address] PATHOLOGIST EMBROIDERY SUPERVISOR CHER LAGUNA M.D. Performed By: #### H S TROP, CBC, CK, BMP, PT, DDIMER, BNP ####[facility] [address] [place] [id number] [facility] ECG 12 lead ECGon 07-16-2024 ECG 12 lead ECG [facility] [place] [address] [place] [address] Electrocardiograph Report Signed Patient: Hosea Alvarez MR#: [id number] : 1970 Acct:[id number] Age/Sex: 53 / M ADM Date: 07/16/24 Loc: ER Room: Type: [facility] ER Attending Dr: Ordering Provider: Jaylin Rossi [...] Abnormal ECG Confirmed by Jaylin Rossi MD ([id number]) on 07/16/2024 3:46:07 PM Referred By: Electronically Signed By: Jaylin Rossi MD Transcribed By: MUS Signed By Jaylin Rossi MD 06/24 01/14 1546 Normal [facility] ED Clinical Summaryon 2023 ED Clinical Summary ED Clinical Summary [place] [id number] ED Clinical Summary Person Information Name: HOSEA ALVAREZ/[facility] Age: 53 Years : 1970 Sex: Male Language: Egyptian PCP: Yang VALENCIA MD Marital Status: Single [...] 07/16/2024 23:08:48 07/16/2024 23:08:48 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 tomorrow at 10 AM. With: Address: When: Yang VALENCIA [address] [place], [place] [phone] [place] [address] In 3 days 07/19/2024 Comments: Call the [...] new or worsening symptoms. DIAGNOSIS: Anxiety Normal [facility] ED Note-Nursingon 07-16-2024 ED Note-Nursing ED Note-Nursing this RN contacted [facility] at approx [phone]. this RN gave pt report to Lynette at [facility]. pt requesting to speak to [facility], denies SI and HI. Lynette transferred to portable phone to talk with pt at this time. Lynette called this RN back at approx [phone]. pt has set appointment at 1000 tomorrow at the [place] office. pt verbalizes understanding and denies further needs or questions at this time. Normal [facility] ED Patient Summaryon 024 ED Patient Summary ED Patient Summary [address] [address] Patient Discharge Instructions Person Information Name: HOSEA ALVAREZ Age: 53 Years Arrival Date: 07/16/2024 21:11:22 Discharge Diagnosis: Anxiety Primary Care Physician: Yang VALENCIA MD Provider Information Primary Provider: Neil Alexander DO Advanced Retail Merchandiser Technician:Korin The exam and treatment you received in the Emergency Department were for an urgent problem and are not intended as complete care. It is important that you follow up with a doctor, nurse practitioner, or physician???s research assistant for ongoing care. If your symptoms become worse or you do not improve as expected and you are unable to reach your usual health care provider, you should return to the Emergency Department. We are available 24 hours a day. HOSEA ALVAREZ has been given the following list of patient education materials, prescriptions and follow-up instructions: Follow-up Instructions: With: Address: When: [facility] In 3 days 07/19/2024 Comments: You have an appointment at the [facility] tomorrow at 10 AM. With: Address: When: Yang VALENCIA [address] [place] [address] [facility] (1) In 3 days 07/19/2024 Comments: Call [...] opioids can be used to help relieve nftyywgh-cg-uscpii pain and are often prescribed following a [...] and all (more content not included)... Normal [facility] Erythrocyte distribution wid th [Ratio] by Automated countOrdered By: Jaylin Rossi on 07-16-2024 Erythrocyte distribution width (RBC) [Ratio] 13.0 % Normal 12.0-14.8 [facility] Comment on above: Performed By: #### H S TROP, CBC, CK, BMP, PT, DDIMER, BNP #### [facility] [address] [place] [address] [place] Erythrocytes [#/volume] in B lood by Automated countOrdered By: Jaylin Rossi on 07-16-2024 RBC (Bld) [#/Vol] 4.44 10*6/uL Normal 3.90-5.60 [facility] Comment on above: Performed By: #### H S TROP, CBC, CK, BMP, PT, DDIMER, BNP #### [facility] [address] Fibrin D-dimer [Presence] in Platelet poor plasma by Latex agglutinationOrdered By: Jaylin Rossi on 07-16-2024 Fibrin D-dimer LA Ql (PPP) < 200 ng/mL 0-243 [facility] Comment on above: The reference range for [...] coagulation studies. Please contact the laboratory at [phone] for redraw instructions. Glucose [Mass/volume] in Ser um or PlasmaOrdered By: Jaylin Rossi on 07-16-2024 Glucose [Mass/Vol] 122 mg/dL High 70-100 [facility] Comment on above: ADA recommended refe rence rangeRandom Glucose Reference Range is dependent on time and content of last meal. Glucose of more than 200 mg/dL in a nonstressed, ambulatory subject supports the diagnosis of Diabetes Mellitus. Result Comment: [place] om Glucose Reference Range is dependent on time and content of last meal. Glucose of more than 200 mg/dL in a nonstressed, ambulatory subject supports the diagnosis of Diabetes Mellitus. ADA recommended reference range Performed By: #### H S TROP, CBC, CK, BMP, PT, DDIMER, BNP #### [address] Hematocrit [Volume Fraction] of Blood by Automated countOrdered By: Jaylin Rossi on 07-16-2024 Hematocrit (Bld) [Volume fraction] 38.3 % Low 38.8-50.0 [facility] Comment on above: Performed By: #### H S TROP, CBC, CK, BMP, PT, DDIMER, BNP #### [facility] [address] Hemoglobin [Mass/volume] in BloodOrdered By: Jaylin Rossi on 07-16-2024 Hemoglobin (Bld) [Mass/Vol] 12.9 g/dL Low 13.0-17.0 [facility] Comment on above: Performed By: #### H S TROP, CBC, CK, BMP, PT, DDIMER, BNP #### [facility] [address] INR in Platelet poor plasma by Coagulation assayOrdered By: Jaylin Rossi on 07-16-2024 INR Coag (PPP) [Relative time] 0.9 {INR} Normal [facility] Comment on above: INR Therapeutic Rang e [...] TROP, CBC, CK, BMP, PT, DDIMER, BNP ####[facility] [address] Leukocytes [#/volume] correc sebastián for nucleated erythrocytes in Blood by Automated counOrdered By: Jaylin Rossi on 07-16-2024 WBC corrected for nucl RBC Auto (Bld) [#/Vol] 4.3 10*3/uL 4.1-10.5 [facility] Leukocytes [#/volume] in Blo od by Automated countOrdered By: Jaylin Rossi on 07-16-2024 WBC (Bld) [#/Vol] 4.3 10*3/uL Normal 4.1-10.5 [facility] Comment on above: Performed By: #### H S TROP, CBC, CK, BMP, PT, DDIMER, BNP #### [facility] [address] Lymphocytes [#/volume] in Bl ood by Automated countOrdered By: Jaylin Rossi on 07-16-2024 Lymphocytes (Bld) [#/Vol] 0.7 10*3/uL Low 1.00-4.8 [facility] Comment on above: Performed By: #### H S TROP, CBC, CK, BMP, PT, DDIMER, BNP #### [facility] [address] [place] [address] [place] Lymphocytes/100 leukocytes i n Blood by Automated countOrdered By: Jaylin Rossi on 07-16-2024 Lymphocytes/100 WBC (Bld) 16.4 % Normal . [facility] Comment on above: Performed By: #### H S TROP, CBC, CK, BMP, PT, DDIMER, BNP #### [address] MCH [Entitic mass] by Automa sebastián countOrdered By: Jaylin Rossi on 07-16-2024 MCH (RBC) [Entitic mass] 29.0 pg Normal 27.5-35.2 [facility] Comment on above: Performed By: #### H S TROP, CBC, CK, BMP, PT, DDIMER, BNP #### [address] MCHC Auto (RBC) [Mass/Vol]Or dered By: Jayiln Rossi on 07-16-2024 MCHC (RBC) [Mass/Vol] 33.7 g/dL 32.5-35.6 [facility] MCV [Entitic volume] by Auto mated countOrdered By: Jaylin Rossi on 07-16-2024 MCV (RBC) [Entitic vol] 86.2 fL Normal 83.5-101 [facility] Comment on above: Performed By: #### H S TROP, CBC, CK, BMP, PT, DDIMER, BNP #### [address] Monocyte distribution width [Entitic volume] in Blood by AutomatedOrdered By: Jaylin Rossi on 07-16-2024 Monocyte distribution width Auto (Bld) [Entitic vol] 18.93 % 0.00-20.00 [facility] Neutrophils [#/volume] in Bl ood by Automated countOrdered By: Jaylin Rossi on 07-16-2024 Neutrophils (Bld) [#/Vol] 3.1 10*3/uL Normal 1.8-7.7 [facility] Comment on above: Performed By: #### H S TROP, CBC, CK, BMP, PT, DDIMER, BNP #### [facility] [address] [place] [address] No Panel InformationOrdered By: Jaylin Rossi on 07-16-2024 Estimated GFR (CKD-EPI) > 60.0 mL/Min [facility] Creatinine Clearance (Chem 84.56 [facility] Nucleated erythrocytes [Pres ence] in Blood by Automated countOrdered By: Jaylin Rossi on 07-16-2024 Nucleated RBC Auto Ql (Bld) 0.2 /100{WBC} 0-0.5 [facility] Platelet mean volume [Entiti c volume] in Blood by Automated countOrdered By: Jaylin Rossi on 07-16-2024 Platelet mean volume (Bld) [Entitic vol] 9.5 fL Normal 6.6-10.1 [facility] Comment on above: Performed By: #### H S TROP, CBC, CK, BMP, PT, DDIMER, BNP #### [facility] [address] [place] [address] Platelets [#/volume] in Bloo d by Automated countOrdered By: Jaylin Rossi on 07-16-2024 Platelets (Bld) [#/Vol] 141 10*3/uL Low 150-450 [facility] Comment on above: Performed By: #### H S TROP, CBC, CK, BMP, PT, DDIMER, BNP #### [facility] [address] [place] [address] Potassium [Moles/volume] in Serum or PlasmaOrdered By: Jyalin Rossi on 07-16-2024 Potassium [Moles/Vol] 4.3 mmol/L Normal 3.5-5.1 [facility] Comment on above: Performed By: #### H S TROP, CBC, CK, BMP, PT, DDIMER, BNP #### [address] Prothrombin time (PT)Ordered By: Jaylin Rossi on 07-16-2024 PT Coag (PPP) [Time] 10.9 s Normal 9.0-12.9 [facility] Comment on above: A hematocrit value g reater than 55% may lead to inaccurate results in coagulation testing. Patients having hematocrit values >55% require a special collection tube for coagulation studies. Please contact the laboratory at [phone] for redraw instructions. Result Comment: A he matocrit value greater than 55% may lead to inaccurate results in coagulation testing. Patients having hematocrit values >55% require a special collection tube for coagulation studies. Please contact the laboratory at [phone] for redraw instructions. Performed By: #### H S TROP, CBC, CK, BMP, PT, DDIMER, BNP ####[facility] [id number] Serum or plasma anion gap de terminationOrdered By: Jaylin Rossi on 07-16-2024 Anion gap [Moles/Vol] 14.6 mmol/L Normal 6.0-15.0 [facility] Comment on above: Performed By: #### H S TROP, CBC, CK, BMP, PT, DDIMER, BNP #### [facility] [address] [place] [address] Sodium [Moles/volume] in Ser um or PlasmaOrdered By: Jaylin Rossi on 07-16-2024 Sodium [Moles/Vol] 136 mmol/L Normal 136-145 [facility] Comment on above: Performed By: #### H S TROP, CBC, CK, BMP, PT, DDIMER, BNP #### [facility] [address] Troponin I High Sensitivityo n 07-16-2024 Troponin I High Sensitivity 3.3 pg/mL Normal 0.0-20.0 [facility] Comment on above: Result Comment: PERF ORMED BY: [facility] 1[address] [place] [address] PATHOLOGIST EMBROIDERY SUPERVISOR CHER LAGUNA M.D. Performed By: #### H S TROP #### [facility] [address] [place] [address] Troponin I High Sensitivity 3.3 pg/mL Normal 0.0-20.0 [facility] Comment on above: Result Comment: PERF ORMED BY: [place] [address] PATHOLOGIST EMBROIDERY SUPERVISOR CHER LAGUNA M.D. Performed By: #### H S TROP, CBC, CK, BMP, PT, DDIMER, BNP ####[facility] [id number] [address] Troponin I.cardiac [Mass/vol ume] in Serum or Plasma by Detection limit <= 0.01 ng/Ordered By: Jaylin Rossi on 07-16-2024 Troponin I.cardiac DL <= 0.01 ng/mL [Mass/Vol] 3.3 pg/mL 0.0-20.0 [facility] Urea nitrogen [Mass/volume] in Serum or PlasmaOrdered By: Jaylin Rossi on 07-16-2024 Urea nitrogen [Mass/Vol] 20 mg/dL Normal 7-25 [facility] Comment on above: Performed By: #### H S TROP, CBC, CK, BMP, PT, DDIMER, BNP #### [facility] [address] [place] [address] XR chest 2V*on 07-16-2024 XR chest 2V* [facility] [address] [place] [address] [place] [address] XRay Report Signed Patient: Hosea Alavrez MR#: [id number] : 1970 Acct:[id number] Age/Sex: 53 / M ADM Date: 07/16/24 Loc: ER Room: Type: [facility] ER Attending Dr: Copies to: Jaylin Rossi [...] Yang Rogers M.D.07/16/2024 1:14 PM Dictation Location: [place] [address] Transcribed By: SOL 07/16/24 131 Dictated By: Yang Rogers DO 07/16/24 131 Signed By: 07/16/24 131 Normal [facility] Alanine aminotransferase [En zymatic activity/volume] in Serum or PlasmaOrdered By: Gustavo Mcclelland on 07-14-2024 ALT [Catalytic activity/Vol] 23 U/L Normal 7-52 [facility] Comment on above: Performed By: #### C BC, BMP, LIPASE, HEPATIC ####[place] [address] [address] Albumin [Mass/volume] in Ser um or Plasma by Bromocresol green (BCG) dye binding methoOrdered By: Gustavo Mcclelland on 07-14-2024 Albumin BCG dye [Mass/Vol] 4.5 g/dL 3.5-5.7 [facility] Alkaline phosphatase [Enzyma tic activity/volume] in Serum or PlasmaOrdered By: Gustavo Mcclelland on 07-14-2024 ALP [Catalytic activity/Vol] 53 U/L Normal 34-104 [facility] Comment on above: Performed By: #### C BC, BMP, LIPASE, HEPATIC ####[address] Aspartate aminotransferase [ Enzymatic activity/volume] in Serum or PlasmaOrdered By: Gustavo Mcclelland on 07-14-2024 AST [Catalytic activity/Vol] 19 U/L Normal 13-39 [facility] Comment on above: Performed By: #### C BC, BMP, LIPASE, HEPATIC ####[address] Automated basophil %Ordered By: Gustavo Mcclelland on 07-14-2024 Basophils/100 WBC (Bld) 0.6 % Normal . [facility] Comment on above: Performed By: #### C BC, BMP, LIPASE, HEPATIC ####[address] Automated basophil countOrde red By: Gustavo Mcclelland on 07-14-2024 Basophils (Bld) [#/Vol] 0.0 10*3/uL Normal 0.0-0.2 [facility] Comment on above: Result Comment: PERF ORMED BY: [facility] [address] [place] [address] PATHOLOGIST EMBROIDERY SUPERVISOR CHER LAGUNA M.D. Performed By: #### C BC, BMP, LIPASE, HEPATIC ####[address] Automated blood monocyte cou ntOrdered By: Gustavo Mcclelland on 07-14-2024 Monocytes (Bld) [#/Vol] 0.3 10*3/uL Normal 0.0-0.8 [facility] Comment on above: Performed By: #### C BC, BMP, LIPASE, HEPATIC ####[address] Automated eosinophil %Ordere d By: Gustavo Mcclelland on 07-14-2024 Eosinophils/100 WBC (Bld) 2.1 % Normal . [facility] Comment on above: Performed By: #### C BC, BMP, LIPASE, HEPATIC ####[address] Automated eosinophil countOr dered By: Gustavo Mcclelland on 07-14-2024 Eosinophils (Bld) [#/Vol] 0.1 10*3/uL Normal 0.0-0.45 [facility] Comment on above: Performed By: #### C BC, BMP, LIPASE, HEPATIC ####[address] Automated monocyte %Ordered By: Gustavo Mcclelland on 07-14-2024 Monocytes/100 WBC (Bld) 7.0 % Normal . [facility] Comment on above: Performed By: #### C BC, BMP, LIPASE, HEPATIC ####[address] Automated neutrophil %Ordere d By: Gustavo Mcclelland on 07-14-2024 Neutrophils/100 WBC (Bld) 60.5 % Normal . [facility] Comment on above: Performed By: #### C BC, BMP, LIPASE, HEPATIC ####[facility] [id number] [address] Basic Metabolic Panelon 06-24 Creatinine Clr Calc Pharmacy 83.35 Normal [facility] Comment on above: Performed By: #### C BC, BMP, LIPASE, HEPATIC ####[facility] [id number] GFR/1.73 sq M.predicted MDRD (S/P/Bld) [Vol rate/Area] mL/min/{1.73_m2} Normal [facility] Comment on above: Performed By: #### C BC, BMP, LIPASE, HEPATIC ####[facility] Bilirubin Test strip Ql (U)O rdered By: Gustavo Mcclelland on 07-14-2024 Bilirubin Ql (U) Negative Negative [facility] Bilirubin.direct [Mass/volum e] in Serum or PlasmaOrdered By: Gustavo Mcclelland on 07-14-2024 Bilirubin.direct [Mass/Vol] 0.10 mg/dL 0.03-0.18 [facility] Bilirubin.total [Mass/volume ] in Serum or PlasmaOrdered By: Gustavo Mcclelland on 07-14-2024 Bilirubin [Mass/Vol] 0.4 mg/dL Normal 0.3-1.0 [facility] Comment on above: Performed By: #### C BC, BMP, LIPASE, HEPATIC ####[facility] abdomen pelvis w conon CT abdomen pelvis w con [facility] [address] [place] [address] [place] [address] CT Scan Report Signed Patient: Hosea Alvarez MR#: [id number] : 1970 Acct:[id number] Age/Sex: 53 / M ADM Date: 07/14/24 Loc: ER Room: Type: [facility] ER Attending Dr: Copies to: Gustavo Mcclelland [...] Yang Rogers M.D.07/14/2024 2:13 PM Dictation Location: [place] [address] Transcribed By: [facility] 07/14/24 1413 Dictated By: Yang Rogers DO 07/14/24 1409 Signed By: 07/14/24 1413 Normal [facility] Calcium [Mass/volume] in Ser um or PlasmaOrdered By: Gustavo Mcclelland on 07-14-2024 Calcium [Mass/Vol] 9.4 mg/dL Normal 8.6-10.3 [facility] Comment on above: Performed By: #### C BC, BMP, LIPASE, HEPATIC ####[facility] [id number] [place] [id number] [facility] Carbon dioxide, total [Moles /volume] in Serum or PlasmaOrdered By: Gustavo Mcclelland on 07-14-2024 CO2 [Moles/Vol] 21.7 mmol/L Normal 21.0-31.0 [facility] Comment on above: Performed By: #### C BC, BMP, LIPASE, HEPATIC ####[address] Chloride [Moles/volume] in S karolyn or PlasmaOrdered By: Gustavo Mcclelland on 07-14-2024 Chloride [Moles/Vol] 102 mmol/L Normal 98-107 [facility] Comment on above: Performed By: #### C BC, BMP, LIPASE, HEPATIC ####[address] Color of Urine by AutoOrdere d By: Gustavo Mcclelland on 07-14-2024 Color (U) Colorless Normal Yellow [facility] Comment on above: Order Comment: Name Collection Type:: Clean-Voided Midstream Performed By: #### U A ####[address] Complete Blood Count Auto Di ffon 07-14-2024 Mean Corpuscular HGB Conc 33.9 g/dL Normal 32.5-35.6 [facility] Comment on above: Performed By: #### C BC, BMP, LIPASE, HEPATIC ####[address] Monocytes/100 WBC (Bld) 19.18 % Normal 0.00-20.00 [facility] Comment on above: Performed By: #### C BC, BMP, LIPASE, HEPATIC ####[address] NRBC% 0.2 /100{WBC} Normal 0-0.5 [facility] Comment on above: Performed By: #### C BC, BMP, LIPASE, HEPATIC ####[address] Creatinine [Mass/volume] in Serum or PlasmaOrdered By: Gustavo Mcclelland on 07-14-2024 Creatinine [Mass/Vol] 1.12 mg/dL Normal 0.70-1.30 [facility] Comment on above: Performed By: #### C BC, BMP, LIPASE, HEPATIC ####[facility] [id number] [place] [address] [facility] ECG 12 lead ECGon 07-14-2024 ECG 12 lead ECG [facility] [address] [place] [address] [place] [address] Electrocardiograph Report Signed Patient: Hosea Alvarez MR#: [id number] : 1970 Acct:[id number] Age/Sex: 53 / M ADM Date: 07/14/24 Loc: ER Room: Type: [facility] ER Attending Dr: Ordering Provider: Gustavo [...] By: MUS Signed By Gustavo Mcclelland DO 1752 Normal [facility] Erythrocyte distribution wid th [Ratio] by Automated countOrdered By: Gustavo Mcclelland on 07-14-2024 Erythrocyte distribution width (RBC) [Ratio] 12.9 % Normal 12.0-14.8 [facility] Comment on above: Performed By: #### C BC, BMP, LIPASE, HEPATIC ####[facility] [id number] [place] [id number] [facility] Erythrocytes [#/volume] in B lood by Automated countOrdered By: Gustavo Mcclelland on 07-14-2024 RBC (Bld) [#/Vol] 4.57 10*6/uL Normal 3.90-5.60 [facility] Comment on above: Performed By: #### C BC, BMP, LIPASE, HEPATIC ####[place] [address] [place] [id number] [facility] Glucose [Mass/volume] in Ser um or PlasmaOrdered By: Gustavo Mcclelland on 07-14-2024 Glucose [Mass/Vol] 93 mg/dL Normal 70-100 [facility] Comment on above: ADA recommended refe rence rangeRandom Glucose Reference Range is dependent on time and content of last meal. Glucose of more than 200 mg/dL in a nonstressed, ambulatory subject supports the diagnosis of Diabetes Mellitus. Result Comment: [place] om Glucose Reference Range is dependent on time and content of last meal. Glucose of more than 200 mg/dL in a nonstressed, ambulatory subject supports the diagnosis of Diabetes Mellitus. ADA recommended reference range Performed By: #### C BC, BMP, LIPASE, HEPATIC ####[place] [address] [place] [id number] [facility] Glucose [Mass/volume] in Uri ne by Test stripOrdered By: Gustavo Mcclelland on 07-14-2024 Glucose Test strip (U) [Mass/Vol] Normal mg/dL Normal [facility] Hematocrit [Volume Fraction] of Blood by Automated countOrdered By: Gustavo Mcclelland on 07-14-2024 Hematocrit (Bld) [Volume fraction] 39.2 % Normal 38.8-50.0 [facility] Comment on above: Performed By: #### C BC, BMP, LIPASE, HEPATIC ####[place] [id number] [facility] Hemoglobin Test strip Ql (U) Ordered By: Gustavo Mcclelland on 07-14-2024 Hemoglobin Ql (U) Negative Negative [facility] Hemoglobin [Mass/volume] in BloodOrdered By: Gustavo Mcclelland on 07-14-2024 Hemoglobin (Bld) [Mass/Vol] 13.3 g/dL Normal 13.0-17.0 [facility] Comment on above: Performed By: #### C BC, BMP, LIPASE, HEPATIC ####[place] [id number] [facility] Hepatic Panelon 07-14-2024 Albumin [Mass/Vol] 4.5 g/dL Normal 3.5-5.7 [facility] Comment on above: Performed By: #### C BC, BMP, LIPASE, HEPATIC ####[address] Bilirubin,Indirect 0.3 mg/dL Normal [facility] Comment on above: Performed By: #### C BC, BMP, LIPASE, HEPATIC ####[address] Bilirubin.indirect [Mass/Vol] 0.10 mg/dL Normal 0.03-0.18 [facility] Comment on above: Performed By: #### C BC, BMP, LIPASE, HEPATIC ####[address] Ketones [Presence] in Urine by Test stripOrdered By: Gustavo Mcclelland on 07-14-2024 Ketones Ql (U) Negative Normal Negative [facility] Comment on above: Order Comment: Name Collection Type:: Clean-Voided Midstream Performed By: #### U A ####[address] Leukocyte esterase [Presence ] in Urine by Test stripOrdered By: Gustavo Mcclelland on 07-14-2024 Leukocyte esterase Test strip Ql (U) Negative Normal Negative [facility] Comment on above: Order Comment: Name Collection Type:: Clean-Voided Midstream Performed By: #### U A ####[address] Leukocytes [#/volume] correc sebastián for nucleated erythrocytes in Blood by Automated counOrdered By: Gustavo Mcclelland on 07-14-2024 WBC corrected for nucl RBC Auto (Bld) [#/Vol] 3.9 10*3/uL Low 4.1-10.5 [facility] Leukocytes [#/volume] in Blo od by Automated countOrdered By: Gustavo Mcclelland on 07-14-2024 WBC (Bld) [#/Vol] 3.9 10*3/uL Low 4.1-10.5 [facility] Comment on above: Performed By: #### C BC, BMP, LIPASE, HEPATIC ####[place] [id number] [facility] Lipase [Enzymatic activity/v olume] in Serum or PlasmaOrdered By: Gustavo Mcclelland on 07-14-2024 Lipase [Catalytic activity/Vol] 16.0 U/L Normal 11.0-82.0 [facility] Comment on above: Result Comment: PERF ORMED BY: [facility] [address] [place] [id number] PATHOLOGIST EMBROIDERY SUPERVISOR CHER LAGUNA M.D. Performed By: #### C BC, BMP, LIPASE, HEPATIC ####[address] Lymphocytes [#/volume] in Bl ood by Automated countOrdered By: Gustavo Mcclelland on 07-14-2024 Lymphocytes (Bld) [#/Vol] 1.2 10*3/uL Normal 1.00-4.8 [facility] Comment on above: Performed By: #### C BC, BMP, LIPASE, HEPATIC ####[address] Lymphocytes/100 leukocytes i n Blood by Automated countOrdered By: Gustavo Mcclelland on 07-14-2024 Lymphocytes/100 WBC (Bld) 29.8 % Normal . [facility] Comment on above: Performed By: #### C BC, BMP, LIPASE, HEPATIC ####[address] MCH [Entitic mass] by Automa sebastián countOrdered By: Gustavo Mcclelland on 07-14-2024 MCH (RBC) [Entitic mass] 29.0 pg Normal 27.5-35.2 [facility] Comment on above: Performed By: #### C BC, BMP, LIPASE, HEPATIC ####[address] MCHC Auto (RBC) [Mass/Vol]Or dered By: Gustavo Mcclelland on 07-14-2024 MCHC (RBC) [Mass/Vol] 33.9 g/dL 32.5-35.6 [facility] MCV [Entitic volume] by Auto mated countOrdered By: Gustavo Mcclelland on 07-14-2024 MCV (RBC) [Entitic vol] 85.7 fL Normal 83.5-101 [facility] Comment on above: Performed By: #### C BC, BMP, LIPASE, HEPATIC ####[facility] [id number] [address] Monocyte distribution width [Entitic volume] in Blood by AutomatedOrdered By: Gustavo Mcclelland on 07-14-2024 Monocyte distribution width Auto (Bld) [Entitic vol] 19.18 % 0.00-20.00 [facility] Neutrophils [#/volume] in Bl ood by Automated countOrdered By: Gustavo Mcclelland on 07-14-2024 Neutrophils (Bld) [#/Vol] 2.4 10*3/uL Normal 1.8-7.7 [facility] Comment on above: Performed By: #### C BC, BMP, LIPASE, HEPATIC ####[place] [address] [address] Nitrite Test strip Ql (U)Ord ered By: Gustavo Mcclelland on 07-14-2024 Nitrite Ql (U) Negative Negative [facility] No Panel InformationOrdered By: Gustavo Mcclelland on 07-14-2024 Estimated GFR (CKD-EPI) > 60.0 mL/Min [facility] Creatinine Clearance (Chem 83.35 [facility] Nucleated erythrocytes [Pres ence] in Blood by Automated countOrdered By: Gustavo Mcclelland on 07-14-2024 Nucleated RBC Auto Ql (Bld) 0.2 /100{WBC} 0-0.5 [facility] Platelet mean volume [Entiti c volume] in Blood by Automated countOrdered By: Gustavo Mcclelland on 07-14-2024 Platelet mean volume (Bld) [Entitic vol] 9.3 fL Normal 6.6-10.1 [facility] Comment on above: Performed By: #### C BC, BMP, LIPASE, HEPATIC ####[address] Platelets [#/volume] in Bloo d by Automated countOrdered By: Gustavo Mcclelland on 07-14-2024 Platelets (Bld) [#/Vol] 142 10*3/uL Low 150-450 [facility] Comment on above: Performed By: #### C BC, BMP, LIPASE, HEPATIC ####[address] Potassium [Moles/volume] in Serum or PlasmaOrdered By: Gustavo Mcclelland on 07-14-2024 Potassium [Moles/Vol] 3.9 mmol/L Normal 3.5-5.1 [facility] Comment on above: Performed By: #### C BC, BMP, LIPASE, HEPATIC ####[address] Protein Test strip (U) [Mass /Vol]Ordered By: Gustavo Mcclelland on 07-14-2024 Protein (U) [Mass/Vol] Negative Negative [facility] Protein [Mass/volume] in Ser um or PlasmaOrdered By: Gustavo Mcclelland on 07-14-2024 Protein [Mass/Vol] 7.8 g/dL Normal 6.4-8.9 [facility] Comment on above: Performed By: #### C BC, BMP, LIPASE, HEPATIC ####[address] Serum globulin measurement b y calculation (mass/volume)Ordered By: Gustavo Mcclelland on 07-14-2024 Globulin (S) [Mass/Vol] 3.3 g/dL [facility] Comment on above: Performed By: #### C BC, BMP, LIPASE, HEPATIC ####[address] Serum or plasma albumin/glob ulin mass ratioOrdered By: Gustavo Mcclelland on 07-14-2024 Albumin/Globulin [Mass ratio] 1.4 {ratio} [facility] Comment on above: Performed By: #### C BC, BMP, LIPASE, HEPATIC ####[address] Serum or plasma anion gap de terminationOrdered By: Gustavo Mcclelland on 07-14-2024 Anion gap [Moles/Vol] 16.2 mmol/L High 6.0-15.0 [facility] Comment on above: Performed By: #### C BC, BMP, LIPASE, HEPATIC ####[address] Serum or plasma non-glucuron idated bilirubin measurement (mass/volume)Ordered By: Gustavo Mcclelland on 07-14-2024 Bilirubin.indirect [Mass/Vol] 0.3 mg/dL [facility] Sodium [Moles/volume] in Ser um or PlasmaOrdered By: Gustavo Mcclelland on 07-14-2024 Sodium [Moles/Vol] 136 mmol/L Normal 136-145 [facility] Comment on above: Performed By: #### C BC, BMP, LIPASE, HEPATIC ####[address] Specific gravity Test strip (U) [Rel density]Ordered By: Gustavo Mcclelland on 07-14-2024 Specific gravity (U) [Rel density] 1.004 1.001-1.030 [facility] Urea nitrogen [Mass/volume] in Serum or PlasmaOrdered By: Gustavo Mcclelland on 07-14-2024 Urea nitrogen [Mass/Vol] 19 mg/dL Normal 7-25 [facility] Comment on above: Performed By: #### C BC, BMP, LIPASE, HEPATIC ####[place] [id number] [facility] Urinalysison 07-14-2024 Bilirubin,Urine Negative Normal Negative [facility] Comment on above: Order Comment: Name Collection Type:: Clean-Voided Midstream Performed By: #### U A ####[place] [id number] [facility] Glucose Ql (U) Normal Normal Normal [facility] Comment on above: Order Comment: Name Collection Type:: Clean-Voided Midstream Performed By: #### U A ####[place] [address] [facility] Nitrite,Urine Negative Normal Negative [facility] Comment on above: Order Comment: Name Collection Type:: Clean-Voided Midstream Performed By: #### U A ####[address] [address] [facility] Occult Blood,Urine Negative Normal Negative [facility] Comment on above: Order Comment: Name Collection Type:: Clean-Voided Midstream Result Comment: PERF ORMED BY: [facility] [address] [address] PATHOLOGIST EMBROIDERY SUPERVISOR CHER LAGUNA M.D. Performed By: #### U A ####[address] [address] [facility] Protein,Urine Negative Normal Negative [facility] Comment on above: Order Comment: Name Collection Type:: Clean-Voided Midstream Performed By: #### U A ####[address] [address] [facility] Specificy [place],Urine 1.004 Normal 1.001-1.030 [facility] Comment on above: Order Comment: Name Collection Type:: Clean-Voided Midstream Performed By: #### U A ####[address] [address] [facility] Urobilinogen,Urine Normal Normal Normal [facility] Comment on above: Order Comment: Name Collection Type:: Clean-Voided Midstream Performed By: #### U A ####[address] [address] [facility] Urine appearanceOrdered By: Gustavo Mcclelland on 07-14-2024 Appearance (U) Clear Normal Clear [facility] Comment on above: Order Comment: Name Collection Type:: Clean-Voided Midstream Performed By: #### U A ####[address] [address] [facility] Urobilinogen Test strip (U) [Mass/Vol]Ordered By: Gustavo Mcclelland on 07-14-2024 Urobilinogen (U) [Mass/Vol] Normal mg/dL Normal [facility] pH of Urine by Test stripOrd ered By: Gustavo Mcclelland on 07-14-2024 pH (U) 5.0 [pH] Normal 5.0-9.0 [facility] Comment on above: Order Comment: Name Collection Type:: Clean-Voided Midstream Performed By: #### U A ####[facility] [id number] [facility] [place] [address] [facility] Interdisciplinary Note - Soc ial Workeron 07-13-2024 Interdisciplinary Note - Wire Drawing Setter Interdisciplinary Note - Wire Drawing Setter This SW met with HIM this morning and requested the medical records be faxed to Mr. Cristinaa Jeromy at the [facility] [employer] Leader's office. Normal [facility] ED Note-Physicianon 07-12-20 ED Note-Physician ED Note-Physician [...] and Complexity of Problems Differential Diagnosis: [] [facility] Data External documents reviewed: [] My EKG [...] Samayoa In 3 days 07/14/2024 EDT [address] [place] [address]- [phone] Business (1) Additional Instructions: Follow-up with Dr. Samayoa for Holter monitor placement and Dr. Valencia as discussed. Return to the emergency room if your palpitation recurs, headache gets worse or any new symptoms. Yang VALENCIA In 3 days [address] [place] [address]- Business (1) Additional Instructions: Patient Education Head [...] tab(s), Oral, (more content not included)... Normal [facility] Comment on above: Result Comment: Elec tronically Signed By: Capo Monzon M.D.\.br\Date and Time Signed: 07/12/24 08:14 EDT BMPOrdered By: SYSTEM SYSTEM on 07-11-2024 Anion gap [Moles/Vol] 10 mmol/L Normal 6-16 Rem isol Chem Comment on above: Performed By: #### 2 [id number] #### [facility] [address] [place] [address] Calcium [Mass/Vol] 8.9 mg/dL Normal 8.9-11.1 Remiso l Chem Comment on above: Performed By: #### 2 [id number] #### [facility] [address] [place] [address] Chloride [Moles/Vol] 103 mmol/L Normal 101-111 [facility] Comment on above: Performed By: #### 2 [id number] #### [facility] [address] [place] [address] CO2 [Moles/Vol] 28 mmol/L Normal 21-31 Remisol C hem Comment on above: Performed By: #### 2 [id number] #### [facility] [address] [place] [address] Creatinine [Mass/Vol] 1.2 mg/dL Normal 0.5-1.3 Rem isol Chem Comment on above: Performed By: #### 2 [id number] #### [facility] [address] [place] [address] Glucose [Mass/Vol] 99 mg/dL Normal 55-199 Remiso l Chem Comment on above: Performed By: #### 2 [id number] #### [facility] [address] [place] [address] Potassium [Moles/Vol] 4.8 mmol/L Normal 3.5-5.3 Rem isol Chem Comment on above: Performed By: #### 2 [id number] #### [facility] [address] [place] [address] Sodium [Moles/Vol] 136 mmol/L Normal 135-145 Remiso l Chem Comment on above: Performed By: #### 2 [id number] #### [facility] [address] [place] [address] Urea nitrogen [Mass/Vol] 15 mg/dL Normal 5-21 Remisol Chem Comment on above: Performed By: #### 2 [id number] #### [facility] [address] [place] [address] BMPon 07-11-2024 Urea nitrogen/Creatinine [Mass ratio] 12 No Units Normal 10-20 [facility] Comment on above: Performed By: #### 2 [id number] #### [facility] [address] [place] [address] BNPOrdered By: Randi barron on 07-11-2024 Natriuretic peptide B (Bld) [Mass/Vol] 22 pg/mL Normal 5-80 [facility] Comment on above: Performed By: #### 1 [id number] #### [facility] [address] [place] [address] CBC w/ Auto DiffOrdered By: SYSTEM SYSTEM on 07-11-2024 Basophils/100 WBC (Bld) 0.3 % Normal 0.0-2.0 [facility] Comment on above: Performed By: #### 2 [id number] #### [facility] [address] [place] [address] Basophils/Leukocytes Auto (Bld) [Pure # fraction] 0.0 E9/L Normal 0.0-0.2 [facility] Comment on above: Performed By: #### 2 [id number] #### [facility] [address] [place] [address] 01510 Eosinophils (Bld) [#/Vol] 0.1 E9/L Normal 0.0-0.5 [facility] Comment on above: Performed By: #### 2 [id number] #### [facility] [address] [place] [address] 5[address]18 Eosinophils/100 WBC (Bld) 2.1 % Normal 0.0-8.0 [facility] Comment on above: Performed By: #### 2 [id number] #### [facility] [address] [place] [address] 52917 Erythrocyte distribution width (RBC) [Ratio] 13.0 % Normal 10.9-14.2 [facility] Comment on above: Performed By: #### 2 [id number] #### [facility] [address] [place] [address] Hematocrit (Bld) [Volume fraction] 39.0 % Normal 37.7-49.0 [facility] Comment on above: Performed By: #### 2 [id number] #### [facility] [address] [place] [address] 83056 Hemoglobin (Bld) [Mass/Vol] 13.1 g/dL Low 13.5-17.5 [facility] Comment on above: Performed By: #### 2 [id number] #### [facility] [address] [place] [address] 23467 Lymphocytes (Bld) [#/Vol] 0.8 E9/L Low 1.0-4.0 [facility] Comment on above: Performed By: #### 2 [id number] #### [facility] [address] [place] [address] Lymphocytes/100 WBC (Bld) 23.3 % Normal 14.0-50.0 [facility] Comment on above: Performed By: #### 2 [id number] #### [facility] [address] [place] [address] 57194 MCH (RBC) [Entitic mass] 29.2 pg Normal 27.0-34.0 [facility] Comment on above: Performed By: #### 2 [id number] #### [facility] [address] [place] [address] 68223 MCHC (RBC) [Mass/Vol] 33.7 g/dL Normal 31.4-36.0 [facility] Comment on above: Performed By: #### 2 [id number] #### [facility] [address] [place] [address] 53840 MCV (RBC) [Entitic vol] 86.8 fL Normal 80.0-100.0 [facility] Comment on above: Performed By: #### 2 [id number] #### [facility] [address] [place] [address] 26643 Monocytes (Bld) [#/Vol] 0.3 E9/L Normal 0.2-1.0 [facility] Comment on above: Performed By: #### 2 [id number] #### [facility] [address] [place] [address] 20530 Neutrophils (Bld) [#/Vol] 2.4 E9/L Normal 2.0-7.5 [facility] Comment on above: Performed By: #### 2 [id number] #### [facility] [address] [place] [address] 29935 Neutrophils/100 WBC (Bld) 67.0 % Normal 36.0-75.0 [facility] Comment on above: Performed By: #### 2 [id number] #### [facility] [address] [place] [address] 22823 Platelet mean volume (Bld) [Entitic vol] 9.2 fL Normal 6.4-10.8 [facility] Comment on above: Performed By: #### 2 [id number] #### [facility] [address] [place] [address] Platelets (Bld) [#/Vol] 131.0 E9/L Low 150.0-500.0 [facility] Comment on above: Performed By: #### 2 [id number] #### [facility] [address] [place] [address] RBC (Bld) [#/Vol] 4.5 E12/L Normal 4.3-5.9 [facility] Comment on above: Performed By: #### 2 [id number] #### [facility] [address] [place] [address] WBC corrected for nucl RBC Auto (Bld) [#/Vol] 3.6 E9/L Low 4.0-11.0 [facility] Comment on above: Performed By: #### 2 [id number] #### [facility] [address] [place] [address] CHEMISTRYOrdered By: SYSTEM SYSTEM on 07-11-2024 Troponin [...] Sensitivity Troponin I Instructions For Use, Farhana Charlotte, April 2018) Albumin/Globulin [Mass ratio] 1.5 {ratio} [...] 31.9 s Normal 25.1 - 36.5 second(s) [facility] Comment on above: Interpretive Data: P arameter 15 days - 4 weeks 1 - 5 months 6 - 11 months 1 - 5 years 6 - 10 years 11 - 17 years PTT Mean: 35.4 (27.6-45.6) Mean: 33.5 (24.8-40.7) Mean: 32.4 (25.1-40.7) Mean: 31.6 (24.0-39.2) Mean: 31.6 (26.9-38.7) Mean: 31.0 (24.6-38.4) Pediatric Reference ranges were obtained from a study by dennise Julian prepared from 1437 samples obtained at 7 different centers using the same coagulation reagent and instrumentation as [facility]. Currently there are no coagulation studies available worldwide for children to 14 days, and no normal ranges. Heparin therapeutic range (represented by Anti-Factor Xa activity of 0.2 - 0.4 U/mL) corresponds to PTT of 56.6 - 109.0 sec. PT Coag (PPP) [Time] 11.0 s Normal 9.4 - 1 2.5 second(s) [facility] Comment on above: Interpretive Data: 1 5 days - 4 weeks 1 - 5 months 6 -11 months 1 5 years 6 10 years 11 -17 years Mean: 11.2 (9.5 12.6) Mean: 11.0 (9.7 12.8) Mean: 11.0 (9.8 13.0) Mean: 11.3 (9.9 13.4) Mean: 11.7 (10.0 14.6) Mean: 11.8 (10.0 - 14.1) Pediatric Reference ranges were obtained from a study by dennise Julian prepared from 1437 samples obtained at 7 different centers using the same coagulation reagent and instrumentation as [facility]. 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 Samayoa for Holter monitor placement and Dr. Valencia as discussed. Return to the emergency room if your palpitation recurs, headache gets worse or any new symptoms. With: Address: When: Yang VALENCIA [address] [place] [phone] Business (1) In 3 days DIAGNOSIS: 1:Palpitations; 2:Closed head injury Normal [facility] ED Patient Summaryon 024 ED Patient Summary ED Patient Summary [address] [address] Patient Discharge Instructions Person Information Name: HOSEA ALVAREZ Age: 53 Years Arrival Date: 07/11/2024 10:43:39 Discharge Diagnosis: 1:Palpitations; 2:Closed head injury Primary Care Physician: Yang VALENCIA MD Provider Information Primary Provider: Capo Monzon M.D. Advanced Retail Merchandiser Technician:None The exam and treatment you received in the Emergency Department were for an urgent problem and are not intended as complete care. It is important that you follow up with a doctor, nurse practitioner, or physician?s research assistant for ongoing care. If your symptoms [...] Follow-up Instructions: With: Address: When: Rao Samayoa [address] [place] [phone] [facility] (1) In 3 days 07/14/2024 Comments: Follow-up with Dr. Samayoa for Holter monitor placement and Dr. Valencia as discussed. Return to the emergency room if your palpitation recurs, headache gets worse or any new symptoms. With: Address: When: Yang VALENCIA [address] [place], [place] [phone] Business (1) In 3 days In the event that this physician does not participate in your insurance network, please consult with your insurance company to find a nearby participating provider. Patient Education Materials: Head Injury, Adult; Palpitations A MESSAGE TO ALL PATIENTS REGARDING OPIOIDS PRESCRIPTION OPIOIDS: WHAT YOU NEED TO KNOW Prescription opioids can be used to help relieve dzjpqrws-sf-ggexpq pain and are often prescribed following a [...] from the (more content not included)... Normal [facility] Ethanolon 07-11-2024 Ethanol Lvl <10 Normal <=11 [facility] Comment on above: Performed By: #### 2 [id number] #### [facility] [address] [place] [id number] HEMATOLOGYOrdered By: SYSTEM SYSTEM on 07-11-2024 Monocytes/100 WBC (Bld) 7.3 % Normal 4.0 - 14.0 % [facility] Hep Func PanelOrdered By: [employer] SYSTEM on 07-11-2024 Albumin [Mass/Vol] 4.1 g/dL Normal 3.3-5.0 [facility] Comment on above: Performed By: #### 2 [id number] #### [facility] [address] [place] [address] Bilirubin [Mass/Vol] 0.5 mg/dL Normal 0.0-1.1 [facility] Comment on above: Performed By: #### 2 [id number] #### [facility] [address] [place] [address] Bilirubin.direct [Mass/Vol] 0.1 mg/dL Normal 0.0-0.4 [facility] Comment on above: Performed By: #### 2 [id number] #### [facility] [address] [place] [address] Bilirubin.indirect [Mass or moles/Vol] 0.4 mg/dL Normal 0.1-0.9 [facility] Comment on above: Performed By: #### 2 [id number] #### [facility] [address] [place] [address] Globulin (S) [Mass/Vol] 2.8 g/dL Normal 1.4-4.0 [facility] Comment on above: Performed By: #### 2 [id number] #### [facility] [address] [place] [address] Protein [Mass/Vol] 6.9 g/dL Normal 6.0-7.8 [facility] Comment on above: Performed By: #### 2 [id number] #### [facility] [address] [place] [address] Hep Func Panelon 07-11-2024 Albumin/Globulin (S) [Mass conc ratio] 1.5 Normal 1.1-2.2 [facility] Comment on above: Performed By: #### 2 [id number] #### [facility] [address] [place] [address] ALP [Catalytic activity/Vol] 57 Int._Unit/L Normal 21-98 [facility] Comment on above: Performed By: #### 2 [id number] #### [facility] [address] [place] [address] ALT No additional P-5'-P [Catalytic activity/Vol] 20 Int._Unit/L Normal 6-46 [facility] Comment on above: Performed By: #### 2 [id number] #### [facility] [address] [place] [address] AST [Catalytic activity/Vol] 17 Int._Unit/L Normal 5-43 [facility] Comment on above: Performed By: #### 2 [id number] #### [facility] [address] [place] [address] MagnesiumOrdered By: SYSTEM SYSTEM on 07-11-2024 Magnesium [Mass/Vol] 1.9 mg/dL Normal 1.3-2.4 [facility] Comment on above: Performed By: #### 2 [id number] #### [facility] [address] [place] [address] No Panel InformationOrdered By: SYSTEM SYSTEM on [...] Instructions For Use, Farhana Bernard, April 2018) PT & PTTon 07-11-2024 aPTT Coag (PPP) [Time] 31.9 second(s) Normal 25.1-36.5 [facility] Comment on above: Result Comment: Para meter [...] the same coagulation reagent and instrumentation as [facility]. Currently there are no coagulation studies available worldwide for children to 14 days, and no normal ranges. Heparin therapeutic range (represented by Anti-Factor Xa activity of 0.2 - 0.4 U/mL) corresponds to PTT of 56.6 - 109.0 sec. Performed By: #### 1 [id number] #### [facility] [address] [place] [address] PT Coag (PPP) [Time] 11.0 second(s) Normal 9.4-12.5 [facility] Comment on above: Result Comment: 15 d [...] the same coagulation reagent and instrumentation as [facility]. Currently there are no coagulation studies available worldwide for children to 14 days, and no normal ranges. Performed By: #### 1 [id number] #### [facility] [address] [place] [address] PT & PTTOrdered By: Sakina Blackwood on 07-11-2024 INR Coag (PPP) [Relative time] 0.98 {INR} Invalid Interpretation Code [facility] Comment on above: Interpretive Data: [...] 3.0 ? 4.5 Performed By: #### 1 [id number] #### [facility] [address] [place] [address] Pre-Arrival Noteon Pre-Arrival Note Pre-Arrival Note Pre-Arrival Summary Name: , REJI Current Date: 07/11/2024 10:49:55 EDT Gender: Date of : Age: 53 Pre-Arrival Type: EMS ETA: 07/11/2024 11:07:00 EDT Primary Care Physician: Presenting Problem: hyeadache/heart racing Pre-Arrival User: Lei Phillip RN Referring Source: [place] Completion Date/Time: 07/11/2024 10:37:00 [facility] Emergency Department Pre-Hospital Report Form Vital Signs: Pre-Hospital Report: Treatment in Route: Response to Treatment: Misc. Issues: Normal [facility] TSH With T4fr ReflexOrdered By: SYSTEM SYSTEM on 07-11-2024 TSH Qn 0.93 m[IU]/L Normal 0.34-5.60 [facility] Comment on above: Performed By: #### 1 [id number] #### [facility] [address] [place] [address] Troponin 0 Hr.on 07-11-2024 Troponin HS <2.30 Low 15.90-38.40 [facility] Comment on above: Result Comment: The 95% CI (Confidence Interval) PPV (Positive Predictive Value) for myocardial infarction in females is 38 pg/mL, in males 51 pg/mL. The results should be used in conjunction with clinical conditions of myocardial infarction. (Access High Sensitivity Troponin I Instructions For Use, [employer], April 2018) Performed By: #### 1 [id number] #### [facility] [address] [place] [address] Troponin 1 Hr.on 07-11-2024 Troponin HS <2.30 Low 15.90-38.40 [facility] Comment on above: Order Comment: due @ 1200 Result Comment: The 95% CI (Confidence Interval) PPV (Positive Predictive Value) for myocardial infarction in females is 38 pg/mL, in males 51 pg/mL. The results should be used in conjunction with clinical conditions of myocardial infarction. (Access High Sensitivity Troponin I Instructions For Use, [employer], April 2018) Performed By: #### 1 [id number] #### [facility] [address] [place] [address] Troponin 3 Hr.on 07-11-2024 Troponin HS 3.10 pg/mL Low 15.90-38.40 [facility] Comment on above: Result Comment: The 95% CI (Confidence Interval) PPV (Positive Predictive Value) for myocardial infarction in females is 38 pg/mL, in males 51 pg/mL. The results should be used in conjunction with clinical conditions of myocardial infarction. (Access High Sensitivity Troponin I Instructions For Use, Farhana Bernard, April 2018) Performed By: #### 1 [id number] #### [facility] [address] [place] [address] XR Chest Single Viewon 07-11 XR Chest [...] mGy = . DAP = . Normal [facility] eGFROrdered By: SYSTEM SealedMedia on 07-11-2024 eGFR 72 mL/min/1.73 m2 Normal >=59 [facility] Comment on above: Performed By: #### 1 [id number] #### [facility] [address] [place] [address] ED Note-Physicianon 07-10-20 ED Note-Physician ED Note-Physician [...] reports that he used to live in [place] but now lives here, reports that he [...] Grady In 3 days 07/12/2024 EDT [address], [address] [place] [phone] Business (1) Additional Instructions: follow with GI for your abdominal pain Yang ERIK In 3 days [address] [facility] (more content not included)... Normal [facility] Comment on above: Result Comment: Elec tronically Signed By: Sharon Valladares PA-C\.br\Date and Time Signed: 07/09/24 22:37 EDT\.br\Electronically Co-Signed By: Capo Monzon M.D.\.br\Date and Time Co-Signed: 07/10/24 07:10 EDT Interdisciplinary Note - Soc paige Douglass 07-10-2024 Interdisciplinary Note - Wire Drawing Setter Interdisciplinary Note - Wire Drawing Setter This SW met with patient today after he arrived at [facility] as a walk-in demanding he needed to [...] with his medical records sent to his [employer] Leader, . Cheryle Pinzon, from [facility] as there is a hearing on Saturday10/13/23 at 0900 that he is trying to get adjournment on. Patient very anxious about these needs; displaying significant flight of ideas. DAVID called [facility] and was able to schedule an appointment with Dr. Edwards for Saturday07/15/24 at 1030; patient needs to arrive at 1015 and take his photo ID, [place] Medicaid card, and standing colonoscopy orders he states he [place] from a physician [place]. He was made aware that if a colonoscopy is needed, this usually is scheduled within a couple weeks of the initial appointment. DAVID then assisted him with calling [facility] [employer] office. Contact information for both fax and email were obtained for Mr. Cheryle Pinzon. Medical Records unfortunately had already closed for the day so DAVID emailed and faxed a letter to Mr. [...] did locate it in his belongings. 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 [address] [place] [address] PHYS DOC NOTES: MEDICAL INFORMATION: Prescriptions Given: New [...] Follow up: With: Address: When: Gisell Grady [address] [place], [place] [id number] [phone] Business (1) In 3 days 07/12/2024 Comments: follow with GI for your abdominal pain With: Address: When: Yang VALENCIA [address] [place], [place] [phone] Business (1) In 3 days DIAGNOSIS: 1:Asymptomatic hypertension Normal [facility] ED Patient Summaryon 024 ED Patient Summary ED Patient Summary [address] [address] Patient Discharge Instructions Person Information Name: HOSEA ALVAREZ Age: 53 Years Arrival Date: 07/09/2024 18:17:44 Discharge Diagnosis: 1:Asymptomatic hypertension Primary Care Physician: Yang VALENCIA MD Provider Information Primary Provider: Pasquale Nuñez DO Advanced Retail Merchandiser Technician:Sharon Valladares PA-C The exam and treatment you received in the Emergency Department were for an urgent problem and are not intended as complete care. It is important that you follow up with a doctor, nurse practitioner, or physician?s research assistant for ongoing care. If your symptoms become worse or you do not improve as expected and you are unable to reach your usual health care provider, you should return to the Emergency Department. We are available 24 hours a day. HOSEA ALVAREZ has been given the following list of patient education materials, prescriptions and follow-up instructions: Follow-up Instructions: With: Address: When: G[address], [address] [place] [phone] Business (1) In 3 days 07/12/2024 Comments: follow with GI for your abdominal pain With: Address: When: Yang VALENCIA [address] [place] [phone] Business (1) In 3 days In the event that this physician does not participate in your insurance network, please consult with your insurance company to find a nearby participating provider. Patient Education Materials: Hypertension, Adult A MESSAGE TO ALL PATIENTS REGARDING OPIOIDS PRESCRIPTION OPIOIDS: WHAT YOU NEED TO KNOW Prescription opioids can be used to help relieve hfdubsfl-kd-juujri pain and are often prescribed following a [...] opioids a (more content not included)... Normal [facility] Basic Metabolic Profon 07-04 Anion gap [Moles/Vol] 12 mmol/L Normal 9-17 [facility] Comment on above: Performed By: #### C DP, TROPI, BMP, DIME #### [facility] [address] [place] [address] Artificial Inseminator: Aneudy Webster MD Calcium [Mass/Vol] 9.0 mg/dL Normal 8.6-10.4 [facility] Comment on above: Performed By: #### C DP, TROPI, BMP, DIME #### [facility] [address] [place] [address] Artificial Inseminator: Aneudy Webster MD Chloride [Moles/Vol] 100 mmol/L Normal 98-107 [facility] Comment on above: Performed By: #### C DP, TROPI, BMP, DIME #### [facility] [address] [place], [place] [id number] Artificial Inseminator: Aneudy Webster MD CO2 [Moles/Vol] 26 mmol/L Normal 20-31 [facility] Comment on above: Performed By: #### C DP, TROPI, BMP, DIME #### [facility] [address] [place], [place] [id number] Artificial Inseminator: Aneudy Webster MD Creatinine [Mass/Vol] 1.3 mg/dL High 0.7-1.2 [facility] Comment on above: Performed By: #### C DP, TROPI, BMP, DIME #### [facility] [address] [place] [address] Artificial Inseminator: Aneudy Webster MD GFR/1.73 sq M.predicted among non-blacks MDRD (S/P/Bld) [Vol rate/Area] 66 mL/min/{1.73_m2} Normal >60 [facility] Comment on above: Result Comment: These [...] #### C DP, TROPI, BMP, DIME #### [facility] [address] [place] [address] Artificial Inseminator: Aneudy Webster MD Glucose [Mass/Vol] 93 mg/dL Normal 70-99 [facility] Comment on above: Performed By: #### C DP, TROPI, BMP, DIME #### [facility] [address] [place] [address] Artificial Inseminator: Aneudy Webster MD Potassium [Moles/Vol] 4.0 mmol/L Normal 3.7-5.3 [facility] Comment on above: Performed By: #### C DP, TROPI, BMP, DIME #### [facility] [address] [place] [address] Artificial Inseminator: Aneudy Webster MD Sodium [Moles/Vol] 138 mmol/L Normal 135-144 [facility] Comment on above: Performed By: #### C DP, TROPI, BMP, DIME #### [facility] [address] [place] [id number] Artificial Inseminator: Aneudy Webster MD Urea nitrogen [Mass/Vol] 21 mg/dL High 6-20 [facility] Comment on above: Performed By: #### C DP, TROPI, BMP, DIME #### [facility] [address] [place] [address] Artificial Inseminator: Aneudy Webster MD CBC with Diffon 07-04-2024 Abs. Basophil 0.01 k/uL Normal 0.00-0.20 [facility] Comment on above: Performed By: #### C DP, TROPI, BMP, DIME #### [facility] [address] [place] [id number] Artificial Inseminator: Aneudy Webster MD Abs.Imm.Granulocyte 0.01 k/uL Normal 0.00-0.30 [facility] Comment on above: Performed By: #### C DP, TROPI, BMP, DIME #### [facility] [address] [place] [address] Artificial Inseminator: Anuedy Webster MD Abs.Neutrophil (Seg) 2.31 k/uL Normal 2.1-6.5 [facility] Comment on above: Performed By: #### C DP, TROPI, BMP, DIME #### [facility] [address] [place], [place] [id number] Artificial Inseminator: Aneudy Webster MD Basophils/100 WBC (Bld) 0 % Normal 0-2 [facility] Comment on above: Performed By: #### C DP, TROPI, BMP, DIME #### [facility] [address] [place] [id number] Artificial Inseminator: Aneudy Webster MD Eosinophils (Bld) [#/Vol] 0.10 10*3/uL Normal 0.00-0.40 [facility] Comment on above: Performed By: #### C DP, TROPI, BMP, DIME #### [facility] [address] [place] [address] Artificial Inseminator: Aneudy Webster MD Eosinophils/100 WBC (Bld) 3 % Normal 0-5 [facility] Comment on above: Performed By: #### C DP, TROPI, BMP, DIME #### [facility] [address] [place] [id number] Artificial Inseminator: Aneudy Webster MD Erythrocyte distribution width (RBC) [Ratio] 11.9 % Low 12.1-15.2 [facility] [facility] Comment on above: Performed By: #### C DP, TROPI, BMP, DIME #### [facility] [address] [id number] Artificial Inseminator: Aneudy Wbester MD Hematocrit (Bld) [Volume fraction] 41.3 % Normal 41.0-53.0 [facility] Comment on above: Performed By: #### C DP, TROPI, BMP, DIME #### [facility] [address] [id number] Artificial Inseminator: Aneudy Webster MD Hemoglobin (Bld) [Mass/Vol] 13.7 g/dL Normal 13.5-17.5 [facility] Comment on above: Performed By: #### C DP, TROPI, BMP, DIME #### [facility] [address] [place] [address] Artificial Inseminator: Aneudy Webster MD Immature granulocytes/100 WBC (Bld) 0 % Normal 0-5 [facility] Comment on above: Performed By: #### C DP, TROPI, BMP, DIME #### [facility] [address] [id number] Artificial Inseminator: Aneudy Webster MD Lymphocytes (Bld) [#/Vol] 1.08 10*3/uL Normal 1.00-4.80 [facility] Comment on above: Performed By: #### C DP, TROPI, BMP, DIME #### [facility] [address] [place] [address] Artificial Inseminator: Aneudy Webster MD Lymphocytes/100 WBC (Bld) 28 % Normal 13-44 [facility] Comment on above: Performed By: #### C DP, TROPI, BMP, DIME #### [facility] [address] [place] [address] Artificial Inseminator: Aneudy Webster MD MCH (RBC) [Entitic mass] 28.9 pg Normal 26.0-34.0 [facility] Comment on above: Performed By: #### C DP, TROPI, BMP, DIME #### [facility] [address] [place] [address] Artificial Inseminator: Aneudy Webster MD MCHC (RBC) [Mass/Vol] 33.2 g/dL Normal 31.0-37.0 [facility] Comment on above: Performed By: #### C DP, TROPI, BMP, DIME #### [facility] [address] [id number] Artificial Inseminator: Aneudy Webster MD MCV (RBC) [Entitic vol] 87.1 fL Normal 80.0-100.0 [facility] Comment on above: Performed By: #### C DP, TROPI, BMP, DIME #### [facility] [address] [place] [address] (307) Artificial Inseminator: Aneudy Webster MD Monocytes (Bld) [#/Vol] 0.35 10*3/uL Normal 0.00-1.00 [facility] Comment on above: Performed By: #### C DP, TROPI, BMP, DIME #### [facility] [address] [id number] (225) Artificial Inseminator: Aneudy Webster MD Monocytes/100 WBC (Bld) 9 % Normal 5-9 [facility] Comment on above: Performed By: #### C DP, TROPI, BMP, DIME #### [facility] [address] [place] [address] Artificial Inseminator: Aneudy Webster MD Neutrophil (Seg) 60 % Normal 39-75 [facility] Comment on above: Performed By: #### C DP, TROPI, BMP, DIME #### [facility] [address] [place] [address] (142) Artificial Inseminator: Aneudy Webster MD Platelet mean volume (Bld) [Entitic vol] 10.9 fL Normal 6.0-12.0 [facility] Comment on above: Performed By: #### C DP, TROPI, BMP, DIME #### [facility] [address] [place] [address] (903) Artificial Inseminator: Aneudy Webster MD Platelets (Bld) [#/Vol] 144 10*3/uL Normal 140-450 [facility] Comment on above: Performed By: #### C DP, TROPI, BMP, DIME #### [facility] [address] [place], [place] [id number] (470) Artificial Inseminator: Aneudy Webster MD RBC (Bld) [#/Vol] 4.74 10*6/uL Normal 4.50-5.90 [facility] Comment on above: Performed By: #### C DP, TROPI, BMP, DIME #### [facility] [address] [place] [address] Artificial Inseminator: Aneudy Webster MD WBC (Bld) [#/Vol] 3.9 10*3/uL Normal 3.5-11.0 [facility] Comment on above: Performed By: #### C DP, TROPI, BMP, DIME #### [facility] [address] [place] [address] Artificial Inseminator: Aneudy Webster MD D-Dimer Teston 07-04-2024 D-Dimer Test 1.45 ug/mL FEU High 0.00-0.59 [facility] Comment on above: Result Comment: [...] #### C DP, TROPI, BMP, DIME #### [facility] [address] [place] [address] Artificial Inseminator: Aneudy Webster MD Troponinon 07-04-2024 Troponin, High Sens <6 Normal 0-22 [facility] Comment on above: Result Comment: High Sensitivity Troponin values cannot be compared with other Troponin methodologies. Performed By: #### C DP, TROPI, BMP, DIME #### [facility] [address] [place] [address] Artificial Inseminator: Aneudy Webster MD XR CHEST PORTABLEon 07-04-20 [...] Lily Canela MD 07/04/24 Final result Normal [facility] BASIC METABOLIC PANELon 09- Anion gap [Moles/Vol] 8 mmol/L Low 10 - 20 [facility] Comment on above: Performed By: #### B MP #### [facility] [address] [place] [address] Calcium [Mass/Vol] 9.1 mg/dL Normal 8.6 - 10.3 [facility] Comment on above: Performed By: #### B MP #### [facility] [address] [place] [address] Chloride [Moles/Vol] 101 mmol/L Normal 98 - 107 [facility] Comment on above: Performed By: #### B MP #### [facility] [address] [place] [address] Creatinine [Mass/Vol] 0.98 mg/dL Normal 0.50 - 1.30 [facility] Comment on above: Performed By: #### B MP #### [facility] [address] [place] [address] eGFR MALE >90 Normal >90 [facility] Comment on above: Result Comment: CALC ULATIONS OF ESTIMATED GFR ARE PERFORMED USING THE 2020 CKD-EPI STUDY REFIT EQUATION WITHOUT THE RACE VARIABLE FOR THE IDMS-TRACEABLE CREATININE METHODS. https://jasn.asnjournals.org/content///ASN.417036 7084 Performed By: #### B MP #### [facility] [address] [place] [address] Glucose [Mass/Vol] 101 mg/dL High 74 - 99 [facility] Comment on above: Performed By: #### B MP #### [facility] [address] [place] [address] HCO3 (Bld) [Moles/Vol] 31 mmol/L Normal 21 - 32 [facility] Comment on above: Performed By: #### B MP #### [facility] [address] [place] [address] Potassium [Moles/Vol] 4.1 mmol/L Normal 3.5 - 5.3 [facility] Comment on above: Performed By: #### B MP #### [facility] [address] [place] [address] Sodium [Moles/Vol] 136 mmol/L Normal 136 - 145 [facility] Comment on above: Performed By: #### B MP #### [facility] [address] [place] [address] Urea nitrogen [Mass/Vol] 15 mg/dL Normal 6 - 23 [facility] Comment on above: Performed By: #### B MP #### [facility] [address] [place] [address] CBC AND DIFFERENTIALon 06-07 % AUTOMATED IMMATURE GRAN 0.3 % Normal 0.0 - 0.9 [facility] Comment on above: Result Comment: Kath ture Granulocyte Count (IG) includes promyelocytes, myelocytes and metamyelocytes but does not include bands. Percent differential counts (%) should be interpreted in the context of the absolute cell counts (cells/L). Performed By: #### C BCDF #### [facility] [address] [place] [address] Basophils (Bld) [#/Vol] 0.02 10*3/uL Normal 0.00 - 0.10 [facility] Comment on above: Performed By: #### C BCDF #### [facility] [address] [place] [address] Basophils/100 WBC (Bld) 0.6 % Normal 0.0 - 2.0 [facility] Comment on above: Performed By: #### C BCDF #### [facility] [address] [place] [address] Eosinophils (Bld) [#/Vol] 0.08 10*3/uL Normal 0.00 - 0.70 [facility] Comment on above: Performed By: #### C BCDF #### [facility] [address] [place] [address] Eosinophils/100 WBC (Bld) 2.3 % Normal 0.0 - 6.0 [facility] Comment on above: Performed By: #### C BCDF #### [address] [address] Erythrocyte distribution width (RBC) [Ratio] 12.6 % Normal 11.5 - 14.5 [facility] Comment on above: Performed By: #### C BCDF #### [address] [address] Hematocrit (Bld) [Volume fraction] 41.3 % Normal 41.0 - 52.0 [facility] Comment on above: Performed By: #### C BCDF #### [address] [address] Hemoglobin (Bld) [Mass/Vol] 13.8 g/dL Normal 13.5 - 17.5 [facility] Comment on above: Performed By: #### C BCDF #### [address] [address] Lymphocytes (Bld) [#/Vol] 0.88 10*3/uL Low 1.20 - 4.80 [facility] Comment on above: Performed By: #### C BCDF #### [address] [address] Lymphocytes/100 WBC (Bld) 25.6 % Normal 13.0 - 44.0 [facility] Comment on above: Performed By: #### C BCDF #### [address] [address] MCHC (RBC) [Mass/Vol] 33.4 g/dL Normal 32.0 - 36.0 [facility] Comment on above: Performed By: #### C BCDF #### [facility] [address] [place] [address] MCV (RBC) [Entitic vol] 89 fL Normal 80 - 100 [facility] Comment on above: Performed By: #### C BCDF #### [facility] [address] [place] [address] Monocytes (Bld) [#/Vol] 0.28 10*3/uL Normal 0.10 - 1.00 [facility] Comment on above: Performed By: #### C BCDF #### [facility] [address] [place] [address] Monocytes/100 WBC (Bld) 8.1 % Normal 2.0 - 10.0 [facility] Comment on above: Performed By: #### C BCDF #### [facility] [address] [place] [address] Neutrophils (Bld) [#/Vol] 2.17 10*3/uL Normal 1.20 - 7.70 [facility] Comment on above: Performed By: #### C BCDF #### [address] [address] Neutrophils/100 WBC (Bld) 63.1 % Normal 40.0 - 80.0 [facility] Comment on above: Performed By: #### C BCDF #### [facility] [address] [place] [address] Platelets (Bld) [#/Vol] 141 10*3/uL Low 150 - 450 [facility] Comment on above: Performed By: #### C BCDF #### [facility] [address] [place] [address] RBC 4.62 x10E12/L Normal 4.50 - 5.90 [facility] Comment on above: Performed By: #### C BCDF #### [facility] [address] [place] [address] WBC (Bld) [#/Vol] 3.4 10*3/uL Low 4.4 - 11.3 [facility] Comment on above: Performed By: #### C [facility] #### [facility] [address] [id number] Provider Note - ED v3on 05-24 Provider [...] (more content not included)... Normal [facility] Risk Screen - Adult Emergenc yon 06-07-2023 Risk Screen - Adult Emergency Preferred Language: Preferred Language: Preferred Language for Discussing Health Care (patient/designee)Fran carver Patient Preferred Pharmacy: Patient Preferred Pharmacy Statement: [...] Learning Preferencesindividual instruction Cultural Considerationsnone Developmental Considerationsnone Mandaeism Considerationsnone Learning Assessment (Other Learner): Learning Assessment (Other Learner): Other learner availableno Pressure Injury/TB/Substance: Pressure Injury: Pressure Injury Present on Admissionno Do you have a coughno Smoking Statusformer smoker Alcohol Usedaily Drug Usedenies Drug 2 Usedenies Admission Risk Screen: Significant IndicatorsComplete CAGE: CAGE: Is this an injured patient at a Trauma Center ([place] [facility] [place] [facility] no Electronic Signatures: Lorna Tian ([place]) (Signed 07-Jun-2023 08:06) Authored: Preferred Language, Patient Preferred Pharmacy, Advanced Directives, Family Violence Adult, Learning Assessment (Patient), Learning Assessment (Other Learner), Pressure Injury/TB/Substance, Pressure Injury, CAGE Last Updated: 07-Jun-2023 08:06 by Lorna Tian (RN) Normal [facility] TROPONIN I, HIGH SENSITIVITY on 06-07-2023 TROPONIN I, HIGH SENSITIVITY Canceled Normal [facility] Comment on above: Order Comment: TEST TROPONIN [...] performed using a different testing methodology at [facility] than at other [facility]. Direct result comparisons should only be made within the same method. Performed By: #### T [facility] #### [address] [address] TROPONIN I, HIGH SENSITIVITY <3 Normal 0 - 20 [facility] Comment on above: Result Comment: . Less [...] performed using a different testing methodology at [facility] than at other [facility]. Direct result comparisons should only be made within the same method. Performed By: #### T [facility] #### [facility] [address] [place] [address] TROPONIN I, HIGH SENSITIVITY 3 ng/L Normal 0 - 20 [facility] Comment on above: Result Comment: . Less [...] performed using a different testing methodology at [facility] than at other [facility]. Direct result comparisons should only be made within the same method. Performed By: #### T [facility] #### [facility] [address] [place] [address] Triage - EDon 06-07-2023 Triage - ED [...] 10:17) Authored: Quick Triage, Chart Review Lorna Tian (RN) (Signed 07-Jun-2023 08:08) Authored: Quick Triage, Risk Screens, Pain, Travel History, Chart Review, Scores, Past Medical History Last Updated: 07-Jun-2023 10:17 by Yamila Roach (ASST N MGR) Normal [facility] BASIC METABOLIC PANELon - Anion gap [Moles/Vol] 13 mmol/L Normal 10 - 20 [facility] Comment on above: Performed By: #### B MP #### [facility] [address] [place] [address] Calcium [Mass/Vol] 9.2 mg/dL Normal 8.6 - 10.3 [facility] Comment on above: Performed By: #### B MP #### [facility] [address] [place] [address] Chloride [Moles/Vol] 102 mmol/L Normal 98 - 107 [facility] Comment on above: Performed By: #### B MP #### [facility] [address] [place] [address] Creatinine [Mass/Vol] 1.02 mg/dL Normal 0.50 - 1.30 [facility] Comment on above: Performed By: #### B MP #### [facility] [address] [place] [address] GFR/1.73 sq M.predicted among non-blacks MDRD (S/P/Bld) [Vol rate/Area] 88 mL/min/{1.73_m2} Normal >90 [facility] Comment on above: Result Comment: CALC ULATIONS OF ESTIMATED GFR ARE PERFORMED USING THE 2020 CKD-EPI STUDY REFIT EQUATION WITHOUT THE RACE VARIABLE FOR THE IDMS-TRACEABLE CREATININE METHODS. https://jasn.asnjournals.org/content/early//ASN.639177 6748 Performed By: #### B MP #### [facility] [address] [place] [address] Glucose [Mass/Vol] 116 mg/dL High 74 - 99 [facility] Comment on above: Performed By: #### B MP #### [facility] [address] [place] [address] HCO3 (Bld) [Moles/Vol] 26 mmol/L Normal 21 - 32 [facility] Comment on above: Performed By: #### B MP #### [facility] [address] [place] [address] Potassium [Moles/Vol] 3.8 mmol/L Normal 3.5 - 5.3 [facility] Comment on above: Performed By: #### B MP #### [facility] [address] [place] [address] Sodium [Moles/Vol] 137 mmol/L Normal 136 - 145 [facility] Comment on above: Performed By: #### B MP #### [facility] [address] [place] [address] Urea nitrogen [Mass/Vol] 17 mg/dL Normal 6 - 23 [facility] Comment on above: Performed By: #### B MP #### [facility] [address] [place] [address] CBC AND DIFFERENTIALon 06-06 % AUTOMATED IMMATURE GRAN 0.3 % Normal 0.0 - 0.9 [facility] Comment on above: Result Comment: Kath ture Granulocyte Count (IG) includes promyelocytes, myelocytes and metamyelocytes but does not include bands. Percent differential counts (%) should be interpreted in the context of the absolute cell counts (cells/L). Performed By: #### C BCDF #### [address] [address] Basophils (Bld) [#/Vol] 0.02 10*3/uL Normal 0.00 - 0.10 [facility] Comment on above: Performed By: #### C BCDF #### [address] [address] Basophils/100 WBC (Bld) 0.5 % Normal 0.0 - 2.0 [facility] Comment on above: Performed By: #### C BCDF #### [address] [address] Eosinophils (Bld) [#/Vol] 0.08 10*3/uL Normal 0.00 - 0.70 [facility] Comment on above: Performed By: #### C BCDF #### [address] [address] Eosinophils/100 WBC (Bld) 2.1 % Normal 0.0 - 6.0 [facility] Comment on above: Performed By: #### C BCDF #### [address] [address] Erythrocyte distribution width (RBC) [Ratio] 12.4 % Normal 11.5 - 14.5 [facility] Comment on above: Performed By: #### C BCDF #### [address] [address] Hematocrit (Bld) [Volume fraction] 38.7 % Low 41.0 - 52.0 [facility] Comment on above: Performed By: #### C BCDF #### [facility] [address] [place] [address] Hemoglobin (Bld) [Mass/Vol] 13.3 g/dL Low 13.5 - 17.5 [facility] Comment on above: Performed By: #### C BCDF #### [facility] [address] [place] [address] Lymphocytes (Bld) [#/Vol] 0.84 10*3/uL Low 1.20 - 4.80 [facility] Comment on above: Performed By: #### C BCDF #### [facility] [address] [place] [address] Lymphocytes/100 WBC (Bld) 22.1 % Normal 13.0 - 44.0 [facility] Comment on above: Performed By: #### C BCDF #### [address] [address] MCHC (RBC) [Mass/Vol] 34.4 g/dL Normal 32.0 - 36.0 [facility] Comment on above: Performed By: #### C BCDF #### [address] [address] MCV (RBC) [Entitic vol] 88 fL Normal 80 - 100 [facility] Comment on above: Performed By: #### C BCDF #### [address] [address] Monocytes (Bld) [#/Vol] 0.29 10*3/uL Normal 0.10 - 1.00 [facility] Comment on above: Performed By: #### C BCDF #### [facility] [address] [place] [address] Monocytes/100 WBC (Bld) 7.6 % Normal 2.0 - 10.0 [facility] Comment on above: Performed By: #### C BCDF #### [facility] [address] [place] [address] Neutrophils (Bld) [#/Vol] 2.56 10*3/uL Normal 1.20 - 7.70 [facility] Comment on above: Performed By: #### C BCDF #### [facility] [address] [place] [address] Neutrophils/100 WBC (Bld) 67.4 % Normal 40.0 - 80.0 [facility] Comment on above: Performed By: #### C BCDF #### [facility] [address] [place] [address] Platelets (Bld) [#/Vol] 144 10*3/uL Low 150 - 450 [facility] Comment on above: Performed By: #### C BCDF #### [facility] [address] [place] [address] RBC 4.41 x10E12/L Low 4.50 - 5.90 [facility] Comment on above: Performed By: #### C BCDF #### [facility] [address] [place] [address] WBC (Bld) [#/Vol] 3.8 10*3/uL Low 4.4 - 11.3 [facility] Comment on above: Performed By: #### C BCDF #### [facility] [address] [place] [address] MAGNESIUMon 06-06-2023 Magnesium [Mass/Vol] 1.86 mg/dL Normal 1.60 - 2.40 [facility] Comment on above: Result Comment: MILD LIPEMIA DETECTED. The result may be falsely elevated due to lipemia or other interferents. Clinical correlation is recommended. Repeat testing may be considered. Performed By: #### M G #### [facility] [address] [place] [address] Provider Note - ED v3on 05-24 Provider Note - ED v3 Provider Note: Results/Vital Signs: Pediatric Clinical Scoring (YAKOV) is no recent YAKOV charted on this account Chart Review: ED NOTES ED NOTES: HPI: Patient presents via EMS with complaint of chest pain. Started suddenly today. Was actually seen in the ED at [facility] several days ago for similar complaint. Patient [...] to me from visits outside of the [facility] system. Review of his records through care everywhere shows that he has multiple and extensive ER visits all across his [facility] [place]. Low suspicion of ACS at this time. [...] Patient, EMS External records reviewed: Records from [facility], [facility] Social barriers to care: Access to primary care. Assessment and plan: ED Dx Name:Chest pain Code:R07.9 Disclaimer: This note was dictated by speech recognition. 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 Please call if you [...] (more content not included)... Normal [facility] Risk Screen - Adult Emergenc yon 06-06-2023 Risk Screen - Adult Emergency Preferred Language: Preferred Language: Preferred Language for Discussing Health Care (patient/designee)Dwightjustin carver Patient Preferred Pharmacy: Patient Preferred Pharmacy Statement: [...] Learning Preferencesindividual instruction Cultural Considerationsnone Developmental Considerationsnone Mandaeism Considerationsnone Learning Assessment (Other Learner): Learning Assessment (Other Learner): Other learner availableno Pressure Injury/TB/Substance: Pressure Injury: Do you have a coughno Smoking Statusnever smoker Admission Risk Screen: Significant IndicatorsComplete CAGE: CAGE: Is this an injured patient at a Trauma Center ([place] [facility] [place] [facility]): no Electronic Signatures: Anni Sol (RN) (Signed 06-Jun-2023 19:00) Authored: Preferred Language, Patient Preferred Pharmacy, Advanced Directives, Family Violence Adult, Learning Assessment (Patient), Learning Assessment (Other Learner), Pressure Injury/TB/Substance, Pressure Injury, CAGE Last Updated: 06-Jun-2023 19:00 by Anni Sol (RN) Normal [facility] TROPONIN I, HIGH SENSITIVITY on 06-06-2023 TROPONIN I, HIGH SENSITIVITY Canceled Normal [facility] Comment on above: Order Comment: TEST TROPONIN [...] performed using a different testing methodology at [facility] than at other [facility]. Direct result comparisons should only be made within the same method. Performed By: #### C BCDF #### [facility] [address] [place] [address] TROPONIN I, HIGH SENSITIVITY <3 Normal 0 - 20 [facility] Comment on above: Result Comment: . Less [...] performed using a different testing methodology at [facility] than at other [facility]. Direct result comparisons should only be made within the same method. Performed By: #### C BCDF #### [facility] [address] [place] [address] TROPONIN I, HIGH SENSITIVITY <3 Normal 0 - 20 [facility] Comment on above: Result Comment: . Less [...] performed using a different testing methodology at [facility] than at other [facility]. Direct result comparisons should only be made within the same method. Performed By: #### T [facility] #### [address] [address] Triage - EDon 06-06-2023 Triage - ED [...] Accompanied By: self Language: Spoken Language Preferred: Egyptian Reading Language Preferred: Egyptian CHIEF COMPLAINT HOSEA ALVAREZ is a Male [...] BMI (kg/m2): 35.600 Calculated BSA (m2) 2.16 Lynda Coma Scale: Best Eye Response: (E4) spontaneous Best Motor Response: (M6) obeys commands Best Verbal Response: (V5) oriented Trona Score: 15 Allergies: yes Patient has homicidal [...] Medical History Reviewedyes Electronic Signatures: Anni Sol (RN) (Signed 06-Jun-2023 18:38) Authored: Quick Triage, Risk Screens, Pain, Arrival, ABCD, Immunizations, Travel History, Chart Review, Scores, Past Medical History Last Updated: 06-Jun-2023 18:38 by Anni Sol (RN) Normal [facility] CBC AND DIFFERENTIALon 06-04 % AUTOMATED IMMATURE GRAN 0.3 % Normal 0.0 - 0.9 [facility] Comment on above: Result Comment: Kath ture Granulocyte Count (IG) includes promyelocytes, myelocytes and metamyelocytes but does not include bands. Percent differential counts (%) should be interpreted in the context of the absolute cell counts (cells/L). Performed By: #### C BCDF #### [facility] [address] [place] [address] Basophils (Bld) [#/Vol] 0.02 10*3/uL Normal 0.00 - 0.10 [facility] Comment on above: Performed By: #### C BCDF #### [address] [address] Basophils/100 WBC (Bld) 0.6 % Normal 0.0 - 2.0 [facility] Comment on above: Performed By: #### C BCDF #### [address] [address] Eosinophils (Bld) [#/Vol] 0.06 10*3/uL Normal 0.00 - 0.70 [facility] [facility] Comment on above: Performed By: #### C BCDF #### [address] [address] Eosinophils/100 WBC (Bld) 1.9 % Normal 0.0 - 6.0 [facility] Comment on above: Performed By: #### C BCDF #### [address] [address] Erythrocyte distribution width (RBC) [Ratio] 12.5 % Normal 11.5 - 14.5 [facility] Comment on above: Performed By: #### C BCDF #### [address] [address] Hematocrit (Bld) [Volume fraction] 43.0 % Normal 41.0 - 52.0 [facility] Comment on above: Performed By: #### C BCDF #### [address] [address] Hemoglobin (Bld) [Mass/Vol] 14.2 g/dL Normal 13.5 - 17.5 [facility] Comment on above: Performed By: #### C BCDF #### [address] [address] Lymphocytes (Bld) [#/Vol] 0.78 10*3/uL Low 1.20 - 4.80 [facility] Comment on above: Performed By: #### C BCDF #### [address] [address] Lymphocytes/100 WBC (Bld) 25.2 % Normal 13.0 - 44.0 [facility] Comment on above: Performed By: #### C BCDF #### [address] [address] MCHC (RBC) [Mass/Vol] 33.0 g/dL Normal 32.0 - 36.0 [facility] Comment on above: Performed By: #### C BCDF #### [address] [address] MCV (RBC) [Entitic vol] 89 fL Normal 80 - 100 [facility] Comment on above: Performed By: #### C BCDF #### [address] [address] Monocytes (Bld) [#/Vol] 0.28 10*3/uL Normal 0.10 - 1.00 [facility] Comment on above: Performed By: #### C BCDF #### [address] [address] Monocytes/100 WBC (Bld) 9.0 % Normal 2.0 - 10.0 [facility] Comment on above: Performed By: #### C BCDF #### [address] [address] Neutrophils (Bld) [#/Vol] 1.95 10*3/uL Normal 1.20 - 7.70 [facility] Comment on above: Performed By: #### C BCDF #### [address] [address] Neutrophils/100 WBC (Bld) 63.0 % Normal 40.0 - 80.0 [facility] Comment on above: Performed By: #### C BCDF #### [address] [address] Platelets (Bld) [#/Vol] 158 10*3/uL Normal 150 - 450 [facility] Comment on above: Performed By: #### C BCDF #### [address] [address] RBC 4.85 x10E12/L Normal 4.50 - 5.90 [facility] Comment on above: Performed By: #### C BCDF #### [address] [address] WBC (Bld) [#/Vol] 3.1 10*3/uL Low 4.4 - 11.3 [facility] Comment on above: Performed By: #### C BCDF #### [address] [address] COMPREHENSIVE PANELon 2022 Albumin [Mass/Vol] 4.5 g/dL Normal 3.4 - 5.0 [facility] Comment on above: Performed By: #### C MP #### [address] [address] ALP [Catalytic activity/Vol] 67 U/L Normal 33 - 120 [facility] Comment on above: Performed By: #### C MP #### [address] [address] ALT [Catalytic activity/Vol] 31 U/L Normal 10 - 52 [facility] Comment on above: Result Comment: Yanni ents treated with Sulfasalazine may generate falsely decreased results for ALT. Performed By: #### C MP #### [address] [address] Anion gap [Moles/Vol] 13 mmol/L Normal 10 - 20 [facility] Comment on above: Performed By: #### C MP #### [address] [address] AST [Catalytic activity/Vol] 22 U/L Normal 9 - 39 [facility] Comment on above: Performed By: #### C MP #### [address] [address] Bilirubin [Mass/Vol] 0.4 mg/dL Normal 0.0 - 1.2 [facility] Comment on above: Performed By: #### C MP #### [address] [address] Calcium [Mass/Vol] 9.5 mg/dL Normal 8.6 - 10.3 [facility] Comment on above: Performed By: #### C MP #### [address] [address] Chloride [Moles/Vol] 102 mmol/L Normal 98 - 107 [facility] Comment on above: Performed By: #### C MP #### [address] [address] Creatinine [Mass/Vol] 0.96 mg/dL Normal 0.50 - 1.30 [facility] Comment on above: Performed By: #### C MP #### [address] [address] eGFR MALE >90 Normal >90 [facility] Comment on above: Result Comment: CALC ULATIONS OF ESTIMATED GFR ARE PERFORMED USING THE 2020 CKD-EPI STUDY REFIT EQUATION WITHOUT THE RACE VARIABLE FOR THE IDMS-TRACEABLE CREATININE METHODS. https://jasn.asnjournals.org/content/early//ASN.564809 2348 Performed By: #### C MP #### [address] [address] Glucose [Mass/Vol] 99 mg/dL Normal 74 - 99 [facility] Comment on above: Performed By: #### C MP #### [address] [address] HCO3 (Bld) [Moles/Vol] 27 mmol/L Normal 21 - 32 [facility] Comment on above: Performed By: #### C MP #### [address] [address] Potassium [Moles/Vol] 3.7 mmol/L Normal 3.5 - 5.3 [facility] Comment on above: Performed By: #### C MP #### [address] [address] Protein [Mass/Vol] 7.6 g/dL Normal 6.4 - 8.2 [facility] Comment on above: Performed By: #### C MP #### [address] [address] Sodium [Moles/Vol] 138 mmol/L Normal 136 - 145 [facility] Comment on above: Performed By: #### C MP #### [address] [address] Urea nitrogen [Mass/Vol] 14 mg/dL Normal 6 - 23 [facility] Comment on above: Performed By: #### C MP #### [address] [address] D-DIMER, VTE EXCLUSIONon D-DIMER, VTE EXCLUSION 278 ng/mL FEU Normal < or = 500 [facility] Comment on above: Result Comment: The VTE [...] exclusion.) Performed By: #### D IMEX #### [address] [address] MAGNESIUMon 06-04-2023 Magnesium [Mass/Vol] 1.87 mg/dL Normal 1.60 - 2.40 [facility] Comment on above: Performed By: #### M G #### [address] [address] PT/INRon 06-04-2023 PT Coag (PPP) [Time] 10.9 s Normal 9.8 - 12.8 [facility] Comment on above: Result Comment: Note new reference range as of 03/12/2023 at 10:00am. Performed By: #### P TINR #### [address] [address] PT, INR 1.0 Normal 0.9 - 1.1 [facility] Comment on above: Performed By: #### P TINR #### [address] [address] Provider Note - ED v3on 05-24 Provider Note - ED v3 Provider Note: Results/Vital Signs: Pediatric Clinical Scoring (YKAOV) is no recent YAKOV charted on this account Chart Review: ED NOTES ED NOTES: HPI: Patient is a 52-year-old male brought to the ED today via EMS for chest pain. Patient explains that he was at the gas station when he started having left-sided chest pain radiating into his left shoulder. He reports a previous history of PR, and states that he wants his troponin checked. Patient further explains that he is from [place], and says that he has been unable [...] L arm. 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 Normal [facility] Risk Screen - Adult Emergenc yon 06-04-2023 Risk Screen - Adult Emergency Preferred Language: Preferred Language: Preferred Language for Discussing Health Care (patient/designee)Dwightjustin carver Patient Preferred Pharmacy: Patient Preferred Pharmacy Statement: [...] instruction; written material Cultural Considerationsnone Developmental Considerationsnone Mandaeism Considerationsnone Learning Assessment (Other Learner): Learning Assessment (Other Learner): Other learner availableno Pressure Injury/TB/Substance: Pressure Injury: Do you have a coughno Smoking Statusnever smoker Alcohol Usedaily Drug Usedenies Substance Comment1 beer daily Admission Risk Screen: Significant IndicatorsComplete CAGE: CAGE: Is this an injured patient at a Trauma Center ([facility] [place]): no Electronic Signatures: Megan Almonte (BROOKLYNN) (Signed 04-Jun-2023 15:11) Authored: Preferred Language, Patient Preferred Pharmacy, Advanced Directives, Family Violence Adult, Learning Assessment (Patient), Learning Assessment (Other Learner), Pressure Injury/TB/Substance, Pressure Injury, CAGE Last Updated: 04-Jun-2023 15:11 by Megan Almonte (BROOKLYNN) Normal [facility] TROPONIN I, HIGH SENSITIVITY on 06-04-2023 TROPONIN I, HIGH SENSITIVITY 3 ng/L Normal 0 - 20 [facility] Comment on above: Result Comment: . [...] performed using a different testing methodology at [facility] than at other [facility]. Direct result comparisons should only be made within the same method. Performed By: #### T [facility] #### [address] [place] [address] TROPONIN I, HIGH SENSITIVITY Canceled Normal [facility] Comment on above: Order Comment: TEST [...] performed using a different testing methodology at [facility] than at other [facility]. Direct result comparisons should only be made within the same method. Performed By: #### T [facility] #### [facility] [address] [place] [address] TROPONIN I, HIGH SENSITIVITY 3 ng/L Normal 0 - 20 [facility] Comment on above: Result Comment: . [...] performed using a different testing methodology at [facility] than at other [facility]. Direct result comparisons should only be made within the same method. Performed By: #### T [facility] #### [address] [place] [address] Triage - EDon 06-04-2023 Triage - ED Chart Review: ARRIVAL INFORMATION Mode of Arrival: ambulance Agency Name: [facility] CHIEF COMPLAINT HOSEA ALVAREZ is a Male patient with a chief complaint of chest pain. Other Complaints: Pt states having CP on L side of chest and going into L arm. 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 BASIC METABOLIC PANELon 09-0 Anion gap [Moles/Vol] 12 mmol/L Normal 10-20 [facility] Comment on above: Performed By: #### C H8, ETOH, HEPATIC #### [facility] [address] [place] [address] [place] [address] Calcium [Mass/Vol] 8.8 mg/dL Normal 8.4-10.4 [facility] Comment on above: Performed By: #### C H8, ETOH, HEPATIC #### [facility] [address] [place] [address] [place] [address] Chloride [Moles/Vol] 102 mmol/L Normal 97-111 [facility] Comment on above: Performed By: #### C H8, ETOH, HEPATIC #### [facility] [address] [place] [address] [place] [address] CO2 [Moles/Vol] 26 mmol/L Normal 21-30 [facility] Comment on above: Performed By: #### C H8, ETOH, HEPATIC #### [facility] [address] [place] [address] [place] [address] Creatinine [Mass/Vol] 1.05 mg/dL Normal 0.80-1.30 [facility] Comment on above: Performed By: #### C H8, ETOH, HEPATIC #### [facility] [address] [place] [address] [place] [address] ESTIMATED GFR (CKD-EPI) 86 mL/min/1.73sqm Normal >=60 [facility] Comment on above: Result Comment: 2020 CKD EPI Equation using Creatinine without Race Comment: Estimated glomerular filtration rate (eGFR) is calculated without a race coefficient. Values should be interpreted in the context of the patient's full clinical presentation. Reference: 1. Evan C, Joann M, Aleena BARTH, et al.. A Unifying Approach for GFR Estimation: Recommendations of the NKF-ASN Task Force on Reassessing the Inclusion of Race in Diagnosing Kidney Disease. Dominican Journal of Kidney Diseases 2021;79(2):268-88.e1. 2. N Engl J Med 1 Vol. 385 Issue 19 Pages 8045-3156 Performed By: #### C H8, ETOH, HEPATIC #### [facility] [address] [place] [address] [place] [address] Glucose [Mass/Vol] 111 mg/dL High 68-110 [facility] Comment on above: Performed By: #### C H8, ETOH, HEPATIC #### [facility] [address] [place] [address] [place] [address] Potassium [Moles/Vol] 3.6 mmol/L Normal 3.3-5.3 [facility] Comment on above: Performed By: #### C H8, ETOH, HEPATIC #### [facility] [address] [place] [address] [place] [address] Sodium [Moles/Vol] 136 mmol/L Normal 135-148 [facility] Comment on above: Performed By: #### C H8, ETOH, HEPATIC #### [facility] [address] [place] [address] [place] [address] Urea nitrogen [Mass/Vol] 15 mg/dL Normal 8-22 [facility] Comment on above: Performed By: #### C H8, ETOH, HEPATIC #### [facility] [address] [facility] [facility] [address] [place] [address] Basic metabolic 2000 panelOr dered By: Kaleigh Stoutsamir on 05-30-2023 Anion gap [Moles/Vol] 12 mmol/L 10 - 20 [facility] Calcium [Mass/Vol] 8.8 mg/dL 8.4 - 10. [...] Inclusion of Race in Diagnosing Kidney Disease. Dominican Journal of Kidney Diseases 2021;79(2):268-88.e1. 2. N Engl J Med 2020 Vol. 385 Issue 19 Pages 7455-3348 Glucose [Mass/Vol] 111 mg/dL High 68 - 110 mg/dL [facility] Interpretation and review of laboratory results Abnormal [facility] Potassium [Moles/Vol] 3.6 mmol/L 3.3 - 5.3 mmol/L [facility] Sodium [Moles/Vol] 136 mmol/L 135 - 148 mmol/L [facility] Urea nitrogen [Mass/Vol] 15 mg/dL 8 - 22 mg/dL [facility] CBC WITH DIFFERENTIALon 09-0 Basophils (Bld) [#/Vol] 0.00 10*3/uL Normal 0.00-0.20 [facility] Comment on above: Performed By: #### C BCDSAT #### [facility] [address] [place] [address] [place] [address] Basophils/100 WBC (Bld) 0.3 % Normal <=1.9 [facility] Comment on above: Performed By: #### C BCDSAT #### [facility] [address] [place] [address] [place] [address] Eosinophils (Bld) [#/Vol] 0.10 10*3/uL Normal 0.00-0.70 [facility] Comment on above: Performed By: #### C BCDSAT #### [facility] [address] [place] [address] [place] [address] Eosinophils/100 WBC (Bld) 1.9 % Normal 0.1-4.0 [facility] Comment on above: Performed By: #### C BCDSAT #### [facility] [address] [place] [address] [place] [address] Erythrocyte distribution width (RBC) [Ratio] 13.4 % Normal 11.5-14.5 [facility] Comment on above: Performed By: #### C BCDSAT #### [facility] [address] [place] [address] [place] [address] Hematocrit (Bld) [Volume fraction] 37.1 % Low 41.0-53.0 [facility] Comment on above: Performed By: #### C BCDSAT #### [facility] [address] [place] [address] [place] [address] Hemoglobin (Bld) [Mass/Vol] 12.6 g/dL Low 13.9-16.3 [facility] Comment on above: Performed By: #### C BCDSAT #### [facility] [address] [place] [address] [place] [address] Lymphocytes (Bld) [#/Vol] 0.90 10*3/uL Low 1.00-4.80 [facility] Comment on above: Performed By: #### C BCDSAT #### [facility] [address] [place] [address] [place] [address] Lymphocytes/100 WBC (Bld) 26.3 % Normal 24.0-44.0 [facility] Comment on above: Performed By: #### C BCDSAT #### [facility] [address] [place] [address] [place] [address] MCH (RBC) [Entitic mass] 29.5 pg Normal 26.0-34.0 [facility] Comment on above: Performed By: #### C BCDSAT #### [facility] [address] [place] [address] [place] [address] MCHC (RBC) [Mass/Vol] 33.8 g/dL Normal 32.0-35.9 [facility] Comment on above: Performed By: #### C BCDSAT #### [facility] [address] [place] [address] [place] [address] MCV (RBC) [Entitic vol] 87 fL Normal 80-100 [facility] Comment on above: Performed By: #### C BCDSAT #### [facility] [address] [place] [address] [place] [address] MONOCYTE DISTRIBUTION WIDTH Normal [facility] Comment on above: Performed By: #### C BCDSAT #### [facility] [address] [place] [address] [place] [address] Monocytes (Bld) [#/Vol] 0.30 10*3/uL Normal 0.20-1.00 [facility] Comment on above: Performed By: #### C BCDSAT #### [facility] [address] [place] [address] [place] [address] Monocytes/100 WBC (Bld) 7.8 % Normal 2.0-11.0 [facility] Comment on above: Performed By: #### C BCDSAT #### [facility] [address] [place] [address] [place] [address] Neutrophils (Bld) [#/Vol] 2.10 10*3/uL Normal 1.50-8.00 [facility] Comment on above: Performed By: #### C BCDSAT #### [facility] [address] [place] [address] [place] [address] Neutrophils/100 WBC (Bld) 63.7 % Normal 31.0-76.0 [facility] Comment on above: Performed By: #### C BCDSAT #### [facility] [address] [place] [address] [place] [address] Nucleated RBC (Bld) [#/Vol] 0.1 10*3/uL Normal [facility] Comment on above: Performed By: #### C BCDSAT #### [facility] [address] [place] [address] [place] [address] Nucleated RBC (Bld) [#/Vol] 0.00 10*3/uL Normal [facility] Comment on above: Performed By: #### C BCDSAT #### [facility] [address] [place] [address] [place] [address] Platelet mean volume (Bld) [Entitic vol] 9.6 fL Normal 7.5-11.2 [facility] Comment on above: Performed By: #### C BCDSAT #### [facility] [address] [place] [address] [place] [address] Platelets (Bld) [#/Vol] 138 10*3/uL Low 150-400 [facility] Comment on above: Performed By: #### C BCDSAT #### [facility] [address] [place] [address] [place] [address] RBC (Bld) [#/Vol] 4.25 10*6/uL Low 4.50-5.90 [facility] Comment on above: Performed By: #### C BCDSAT #### [facility] [address] [place] [address] [place] [address] WBC (Bld) [#/Vol] 3.3 10*3/uL Low 4.5-11.5 [facility] Comment on above: Performed By: #### C BCDSAT #### [facility] [address] [facility] 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 52-year-old male was apparently on a park bench and called for EMS for dizziness. He states that he was in the [facility].. I asked what he was doing there and he states that he was hiking . However he is accompanied by a huge bag full of his belongings. I asked where he lives or if he has a home and he states that he lives in [place]. Yesterday he was seen at 3 different [facility] Emergency department's, the 1st time at [facility] where he apparently was acting unruly at a gas station and ended up signing out AMA. He was then seen at [facility] for dark stools and palpitations and was treated and released and finally he was evaluated at [facility] and treated and released. 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: PatientLanguage translator interpreter used: No REVIEW OF SYSTEMS Review of [...] History: Diagnosis Date * Bipolar 1 disorder ([facility]) * Homeless * Thoracic aortic aneurysm ([facility]) Patient Active Problem List: BPPV (benign paroxysmal positional vertigo) [H81.10] Vestibular neuritis [H81.20] Bipolar disorder ([facility]) [F31.9] Essential hypertension [I10] Paresthesia [R20.2] Homeless [Z59.00] Pulmonary embolism ([facility]) [I26.99] Aneurysm of thoracic aorta ([facility]) [I71.20] Anxiety [F41.9] Renal artery stenosis ([facility]) [I70.1] Pertinent Social History: Social History Tobacco [...] MD Course: ED Course as of 05/30/23 792 (more content not included)... 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 Authentication Interface Message Text Normal [facility] ETHANOL, SERUMon 05-30-2023 Ethanol [Mass/Vol] 41 mg/dL High None Detected [facility] Comment on above: Performed By: #### C H8, ETOH, HEPATIC #### [facility] [address] [place] [address] [place] [address] Ethanol [Mass/Vol] 41 mg/dL High None Detected [facility] Interpretation and review of laboratory results Abnormal [facility] HEPATIC FUNCTION PANELon Albumin [Mass/Vol] 4.1 g/dL Normal 3.4-5.1 [facility] Comment on above: Performed By: #### C H8, ETOH, HEPATIC #### [facility] [address] [place] [address] [place] [address] ALK 54 IU/L Normal 40-200 [facility] Comment on above: Performed By: #### C H8, ETOH, HEPATIC #### [facility] [address] [place] [address] [place] [address] ALT [Catalytic activity/Vol] 24 U/L Normal 7-40 [facility] Comment on above: Performed By: #### C H8, ETOH, HEPATIC #### [facility] [address] [place] [address] [place] [address] AST [Catalytic activity/Vol] 19 U/L Normal 7-40 [facility] Comment on above: Performed By: #### C H8, ETOH, HEPATIC #### [facility] [address] [place] [address] [place] [address] Bilirubin [Mass/Vol] 0.5 mg/dL Normal 0.1-1.5 [facility] Comment on above: Performed By: #### C H8, ETOH, HEPATIC #### [facility] [address] [place] [address] [place] [address] Bilirubin.direct [Mass/Vol] 0.10 mg/dL Normal 0.10-0.30 [facility] Comment on above: Performed By: #### C H8, ETOH, HEPATIC #### [facility] [address] [place] [address] [place] [address] Protein [Mass/Vol] 6.5 g/dL Normal 6.2-8.3 [facility] Comment on above: Performed By: #### C H8, ETOH, HEPATIC #### [facility] [facility] [address] [facility] [place] [address] Albumin [Mass/Vol] 4.1 g/dL 3.4 - 5.1 g/dL [facility] ALP [Catalytic activity/Vol] 54 U/L [facility] ALT [Catalytic activity/Vol] 24 U/L [facility] AST [Catalytic activity/Vol] 19 U/L [facility] Bilirubin [Mass/Vol] 0.5 mg/dL 0.1 - 1 .5 mg/dL [facility] Bilirubin.direct [Mass/Vol] 0.10 mg/dL 0.10 - 0.30 mg/dL [facility] Interpretation and review of laboratory results Normal [facility] Protein [Mass/Vol] 6.5 g/dL 6.2 - 8.3 g/dL [facility] HIGH SENSITIVITY TROPONIN Io n 05-30-2023 HS TROPONIN I < 4 Normal <=15 [facility] Comment on above: Order Comment: High Sensitivity Cardiac Troponin I (hsTnI) assay has replaced the conventional troponin assay at [facility]. All results are reported in whole numbers representing ng/L. Repeat test times for ruling out acute coronary syndrome (ACS) are every 2 hours instead of every 6-8 hours. Lywqg-pk-[id number] conventional troponin (I-stat) will remain available in the [facility] ED ??? results obtained by different labs [...] Performed By: #### H STRP #### [facility] [address] [facility] [place] [address] Troponin I.cardiac DL <= 0.01 ng/mL [Mass/Vol] [...] ng/mL Buprenorphine 5 ng/mL Alcohol 10 mg/dL [facility] TOXICOLOGY SCREEN, UNCONFIRM EDon 05-30-2023 AMPH Negative Normal Negative [facility] Comment on above: Order Comment: This [...] 10 mg/dL Performed By: #### T OX SC #### [facility] [address] [place] [address] [place] [address] BARBIT Negative Normal Negative [facility] Comment on above: Order Comment: This [...] 10 mg/dL Performed By: #### T OX SC #### [facility] [address] [place] [address] [place] [address] BENZO Negative Normal Negative [facility] Comment on above: Order Comment: This [...] 10 mg/dL Performed By: #### T OX SC #### [facility] [address] [place] [address] [place] [address] COCAINE CL Negative Normal Negative [facility] Comment on above: Order Comment: This [...] 10 mg/dL Performed By: #### T OX SC #### [facility] [address] [place] [address] [place] [address] Ethanol [Mass/Vol] Positive Abnormal Cutoff: 1 0 mg/dL [facility] Comment on above: Order Comment: This [...] 10 mg/dL Performed By: #### T OX SC #### [facility] [address] [place] [address] [place] [address] FENTANYL Negative Normal Negative [facility] Comment on above: Order Comment: This [...] 10 mg/dL Performed By: #### T OX SC #### [facility] [address] [place] [address] [place] [address] HYDROCODONE (PM) Negative Normal Negative [facility] Comment on above: Order Comment: This [...] 10 mg/dL Performed By: #### T OX ID #### [facility] [address] [place] [address] [place] [address] Methadone Ql (U) Negative Normal Negative [facility] Comment on above: Order Comment: This [...] 10 mg/dL Performed By: #### T OX SC #### [facility] [address] [place] [address] [place] [address] NORBUPRENORPHINE Negative Normal Cutoff: 5 [facility] Comment on above: Order Comment: This [...] 10 mg/dL Performed By: #### T OX ID #### [facility] [address] [place] [address] [place] [address] OPIATE Negative Normal Negative [facility] Comment on above: Order Comment: This [...] 10 mg/dL Performed By: #### T OX ID #### [facility] [address] [place] [address] [place] [address] OXYCODONE Negative Normal Cutoff: 100 [facility] Comment on above: Order Comment: This [...] By: #### T OX SC #### [facility] [address] [place] [address] [place] [address] PHENCYCL Negative Normal Negative [facility] Comment on above: Order Comment: This [...] 10 mg/dL Performed By: #### T OX SC #### [facility] [address] [place] [address] [place] [address] THC CL Negative Normal Negative [facility] Comment on above: Order Comment: This [...] 10 mg/dL Performed By: #### T OX SC #### [facility] [address] [place] [address] [place] [address] Troponin I.cardiac DL <= 0.0 1 ng/mL [Mass/Vol]on 05-30-2023 Interpretation and review of laboratory results Normal [facility] High Sensitivity Car diac Troponin I (hsTnI) assay has replaced the conventional troponin assay at [facility]. All results are reported in whole numbers representing ng/L. Repeat test times for ruling out acute coronary syndrome (ACS) are every 2 hours instead of every 6-8 hours. Ixlol-oy-ojaa conventional troponin (I-stat) will remain available in the [facility] results obtained by different labs or [...] (U) [Rel density] 1.015 1.005 - 1.030 [facility] Urobilinogen Qn (U) 0.2 mg/dL 0.2 - 1. 0 mg/dL [facility] Glucose Ql (U) Negative Normal Negative [facility] Comment on above: Performed By: #### u rinalysis #### [facility] [address] [place] [address] U APPEAR Clear Normal Clear [facility] Comment on above: Performed By: #### u rinalysis #### [facility] [address] [place] [address] [place] [address] U BILI Negative Normal Negative [facility] Comment on above: Performed By: #### u rinalysis #### [facility] [address] [place] [address] [place] [address] U BLOOD Negative Normal Negative [facility] Comment on above: Performed By: #### u rinalysis #### [facility] [address] [place] [address] [place] [address] U COLOR Yellow Normal Yellow [facility] Comment on above: Performed By: #### u rinalysis #### [facility] [address] [place] [address] [place] [address] U KETONE Negative Normal Negative [facility] Comment on above: Performed By: #### u rinalysis #### [facility] [address] [place] [address] [place] [address] U LEUK Negative Normal Negative [facility] Comment on above: Performed By: #### u rinalysis #### [facility] [address] [place] [address] [place] [address] U NITRITE Negative Normal Negative [facility] Comment on above: Performed By: #### u rinalysis #### [facility] [address] [place] [address] [place] [address] U PH 7.0 Normal 5.0-8.0 [facility] Comment on above: Performed By: #### u rinalysis #### [facility] [address] [place] [address] [place] [address] U PROTEIN Negative Normal Negative [facility] Comment on above: Performed By: #### u rinalysis #### [facility] [address] [place] [address] [place] [address] U SG 1.015 Normal 1.005-1.030 [facility] Comment on above: Performed By: #### u rinalysis #### [facility] [address] [facility] [place] [address] U UROBILI 0.2 mg/dL Normal 0.2 - 1.0 [facility] Comment on above: Performed By: #### u rinalysis #### [facility] [address] [facility] [place] [address] Basic metabolic 2000 panelon 05-29-2023 Anion gap [Moles/Vol] 12 mmol/L Normal 9-18 [facility] Comment on above: Order Comment: Speci men Type: BLOOD SPECIMEN Ordering Facility: [facility] Address: [address] Performed By: #### 2 432-2, #### [facility] CLIA [id number] [address] [place] [address] [place] Calcium [Mass/Vol] 9.6 mg/dL Normal 8.5-10.2 [facility] Comment on above: Order Comment: Speci men Type: BLOOD SPECIMEN Ordering Facility: [facility] Address: [address] [place] [address] Performed By: #### 2 4322, #### [facility] CLIA [id number] [address] [place] [address] [place] Chloride [Moles/Vol] 101 mmol/L Normal 97-105 [facility] Comment on above: Order Comment: Speci men Type: BLOOD SPECIMEN Ordering Facility: [facility] Address: [address] [place] [id number] Performed By: #### 2 2, #### [facility] CLIA [id number] [address] [place] [id number] [place] CO2 [Moles/Vol] 25 mmol/L Normal 22-30 [facility] Comment on above: Order Comment: Speci men Type: BLOOD SPECIMEN Ordering Facility: [facility] Address: [address] [place] [id number] Performed By: #### 2 4321-2, #### [facility] CLIA [id number] [address] [place] [address] [place] Creatinine [Mass/Vol] 0.98 mg/dL Normal 0.73-1.22 [facility] Comment on above: Order Comment: Speci men Type: BLOOD SPECIMEN Ordering Facility: [facility] Address: [address] Performed By: #### 2 4321-2, #### [facility] CLIA [id number] [address] [place] [address] [place] Creatinine and Glomerular filtration rate.predicted panel (S/P/Bld) 93 mL/min/1.73m??? Normal >=60 [facility] Comment on above: Order Comment: Ariella men Type: BLOOD SPECIMEN Ordering Facility: [facility] Address: [address] [place] [address] Result Comment: Nikole mated Glomerular Filtration Rate [...] GFR. Performed By: #### 2 4321-2, #### [facility] CLIA [id number] [address] [place] [address] [place] Glucose [Mass/Vol] 97 mg/dL Normal 74-99 [facility] Comment on above: Order Comment: Speci men Type: BLOOD SPECIMEN Ordering Facility: [facility] Address: [address] [place] [address] Result Comment: The [place] Diabetes Association (ADA) provides guidance for cutoff [...] Standards of Medical Care in Diabetes 2016, [place] [employer]. Diabetes Care. 2016.39(Suppl 1). Performed By: #### 2 4320-10, #### [facility] CLIA [id number] [address] [place] [address] [place] Potassium [Moles/Vol] 4.2 mmol/L Normal 3.7-5.1 [facility] Comment on above: Order Comment: Speci men Type: BLOOD SPECIMEN Ordering Facility: [facility] Address: [address] [place] [address] Performed By: #### 2 4320-10, #### [facility] CLIA [id number] [address] [place] [address] [place] Sodium [Moles/Vol] 138 mmol/L Normal 136-144 [facility] Comment on above: Order Comment: Speci men Type: BLOOD SPECIMEN Ordering Facility: [facility] Address: [address] Performed By: #### 2 4320-10, #### [facility] CLIA [id number] [address] [place] [address] [place] Urea nitrogen [Mass/Vol] 12 mg/dL Normal 9-24 [facility] Comment on above: Order Comment: Speci men Type: BLOOD SPECIMEN Ordering Facility: [facility] Address: [address] Performed By: #### 2 4320-10, #### [facility] CLIA [id number] [address] [place] [address] [place] CBC W Auto Differential pane l (Bld)on 05-29-2023 Basophils (Bld) [#/Vol] 10*3/uL Normal <0.11 [facility] Comment on above: Order Comment: Speci men Type: BLOOD SPECIMEN Ordering Facility: [facility] Address: [address] [place] [address] Performed By: #### 5 7021-8 #### [facility] CLIA [id number] [address] [place] [address] [place] Basophils/100 WBC (Bld) 0.6 % Normal [facility] Comment on above: Order Comment: Speci men Type: BLOOD SPECIMEN Ordering Facility: [facility] Address: [address] [place] [address] Performed By: #### 5 7021-8 #### [facility] CLIA [id number] [address] [place] [address] [place] Differential cell count method Nom (Bld) Auto Normal [facility] Comment on above: Order Comment: Speci men Type: BLOOD SPECIMEN Ordering Facility: [facility] Address: [address] [place] [address] Performed By: #### 5 7021-8 #### [facility] CLIA [id number] [address] [place] [address] [place] Eosinophils (Bld) [#/Vol] 0.05 10*3/uL Normal <0.46 [facility] Comment on above: Order Comment: Speci men Type: BLOOD SPECIMEN Ordering Facility: [facility] Address: [address] [place] [address] Performed By: #### 5 7021-8 #### [facility] CLIA [id number] [address] [place] [address] [place] Eosinophils/100 WBC (Bld) 1.4 % Normal [facility] Comment on above: Order Comment: Speci men Type: BLOOD SPECIMEN Ordering Facility: [facility] Address: [address] Performed By: #### 5 7021-8 #### [facility] CLIA [id number] [address] [place] [address] [place] Erythrocyte distribution width (RBC) [Ratio] 12.6 % Normal 11.5-15.0 [facility] Comment on above: Order Comment: Speci men Type: BLOOD SPECIMEN Ordering Facility: [facility] Address: [address] Performed By: #### 5 7021-8 #### [facility] CLIA [id number] [address] [place] [address] [place] Hematocrit (Bld) [Volume fraction] 41.9 % Normal 39.0-51.0 [facility] Comment on above: Order Comment: Speci men Type: BLOOD SPECIMEN Ordering Facility: [facility] Address: [address] Performed By: #### 5 7021-8 #### [facility] CLIA [id number] [address] [place] [address] [place] Hemoglobin (Bld) [Mass/Vol] 14.2 g/dL Normal 13.0-17.0 [facility] Comment on above: Order Comment: Speci men Type: BLOOD SPECIMEN Ordering Facility: [facility] Address: [address] Performed By: #### 5 7021-8 #### [facility] CLIA [id number] [address] [place] [address] [place] Immature granulocytes (Bld) [#/Vol] 10*3/uL Normal <0.10 [facility] Comment on above: Order Comment: Speci men Type: BLOOD SPECIMEN Ordering Facility: [facility] Address: [address] [place] [address] Performed By: #### 5 7021-8 #### [facility] CLIA [id number] [address] [place] [address] [place] Immature granulocytes/100 WBC (Bld) 0.3 % Normal [facility] Comment on above: Order Comment: Speci men Type: BLOOD SPECIMEN Ordering Facility: [facility] Address: [address] [place] [address] Performed By: #### 5 7021-8 #### [facility] CLIA [id number] [address] [place] [address] [place] Lymphocytes (Bld) [#/Vol] 0.92 10*3/uL Low 1.00-4.00 [facility] Comment on above: Order Comment: Speci men Type: BLOOD SPECIMEN Ordering Facility: [facility] Address: [address] [place] [address] Performed By: #### 5 7021-8 #### [facility] CLIA [id number] [address] [place] [address] [place] Lymphocytes/100 WBC (Bld) 25.4 % Normal [facility] Comment on above: Order Comment: Speci men Type: BLOOD SPECIMEN Ordering Facility: [facility] Address: [address] [place] [address] Performed By: #### 5 7021-8 #### [facility] CLIA [id number] [address] [place] [address] [place] MCH (RBC) [Entitic mass] 29.2 pg Normal 26.0-34.0 [facility] Comment on above: Order Comment: Speci men Type: BLOOD SPECIMEN Ordering Facility: [facility] Address: [address] [place] [address] Performed By: #### 5 7021-8 #### [facility] CLIA [id number] [address] [place] [address] [place] MCHC (RBC) [Mass/Vol] 33.9 g/dL Normal 30.5-36.0 [facility] Comment on above: Order Comment: Speci men Type: BLOOD SPECIMEN Ordering Facility: [facility] Address: [address] [place] [address] Performed By: #### 5 7021-8 #### [facility] CLIA [id number] [address] [place] [address] [place] MCV (RBC) [Entitic vol] 86.0 fL Normal 80.0-100.0 [facility] Comment on above: Order Comment: Speci men Type: BLOOD SPECIMEN Ordering Facility: [facility] Address: [address] [place] [address] Performed By: #### 5 7021-8 #### [facility] CLIA [id number] [facility] [place] [address] [place] Monocytes (Bld) [#/Vol] 0.29 10*3/uL Normal <0.87 [facility] Comment on above: Order Comment: Speci men Type: BLOOD SPECIMEN Ordering Facility: [facility] Address: [address] [place] [address] Performed By: #### 5 7021-8 #### [facility] CLIA [id number] [facility] [place] [address] [place] Monocytes/100 WBC (Bld) 8.0 % Normal [facility] Comment on above: Order Comment: Speci men Type: BLOOD SPECIMEN Ordering Facility: [facility] Address: [address] [place] [address] Performed By: #### 5 7021-8 #### [facility] CLIA [id number] [address] [place] [address] [place] Neutrophils (Bld) [#/Vol] 2.33 10*3/uL Normal 1.45-7.50 [facility] Comment on above: Order Comment: Speci men Type: BLOOD SPECIMEN Ordering Facility: [facility] Address: [address] [place] [address] Performed By: #### 5 7021-8 #### [facility] CLIA [id number] [address] [place] [address] [place] Neutrophils/100 WBC (Bld) 64.3 % Normal [facility] Comment on above: Order Comment: Speci men Type: BLOOD SPECIMEN Ordering Facility: [facility] Address: [address] [place] [address] Performed By: #### 5 7021-8 #### [facility] CLIA [id number] [address] [place] [address] [place] Nucleated RBC (Bld) [#/Vol] 10*3/uL Normal <0.01 [facility] Comment on above: Order Comment: Speci men Type: BLOOD SPECIMEN Ordering Facility: [facility] Address: [address] Performed By: #### 5 7021-8 #### [facility] CLIA [id number] [address] [place] [address] [place] Nucleated RBC/100 WBC (Bld) [Ratio] 0.0 /100 WBC Normal [facility] Comment on above: Order Comment: Speci men Type: BLOOD SPECIMEN Ordering Facility: [facility] Address: [address] [place] [address] Performed By: #### 5 7021-8 #### [facility] CLIA [id number] [address] [place] [address] [place] Platelet mean volume (Bld) [Entitic vol] 11.0 fL Normal 9.0-12.7 [facility] Comment on above: Order Comment: Speci men Type: BLOOD SPECIMEN Ordering Facility: [facility] Address: [address] [place] [address] Performed By: #### 5 7021-8 #### [facility] CLIA [id number] [address] [place] [address] [place] Platelets (Bld) [#/Vol] 149 10*3/uL Low 150-400 [facility] Comment on above: Order Comment: Speci men Type: BLOOD SPECIMEN Ordering Facility: [facility] Address: [address] [place] [address] Performed By: #### 5 7021-8 #### [facility] CLIA [id number] [address] [place] [address] [place] RBC (Bld) [#/Vol] 4.87 10*6/uL Normal 4.20-6.00 [facility] Comment on above: Order Comment: Speci men Type: BLOOD SPECIMEN Ordering Facility: [facility] Address: [address] [place] [address] Performed By: #### 5 7021-8 #### [facility] CLIA [id number] [address] [place] [address] [place] WBC (Bld) [#/Vol] 3.62 10*3/uL Low 3.70-11.00 [facility] Comment on above: Order Comment: Speci men Type: BLOOD SPECIMEN Ordering Facility: [facility] Address: [address] [place] [address] Performed By: #### 5 7021-8 #### [facility] CLIA [id number] [address] [place] [address] [facility] [id number] 05-29-2023 ECG01 Ventricular Rate : 7 1 BPM Atrial Rate : 71 BPM P-R Interval : 172 ms QRS Duration : 98 ms Q-T Interval : 366 ms QTC Calculation(Bazett) : 397 ms Calculated P [place] : 33 degrees Calculated R [place] : -21 degrees Calculated T [place] : 14 degrees NORMAL SINUS RHYTHM NORMAL ECG Confirmed by MD MAO JOSHUA ([id number]), web editor TJ BOWERS ([id number]) on 05/29/2023 5:04:09 PM NAME : HOSEA ALVAREZ PID : [id number] : 1970 Gender : Male Race : ORD : Procedure Date : May 29 2023 12:05:13 Edit Date : May 29 2023 17:04:13 Diagnosis: NORMAL SINUS RHYTHM NORMAL ECG Confirmed by MD MAO JOSHUA ([id number]), web editor TJ BOWERS ([id number]) on 05/29/2023 5:04:09 PM Test Reason : Location : 2 : [facility] 003 Overread By : MD MAO JOSHUA Edited By : TJ BOWERS Referred By : , Acquired by : , [facility] ED NOTEon 05-29-2023 ED NOTE HNO ID: [id number] Author: Kely Cadet RN Service: Emergency Medicine Author Type: Registered Nurse Type: ED Notes Filed: 05/29/2023 3:35 PM Note Text: Discharge paperwork handed to pt, follow-up instructions reviewed with pt and pt verbalized understanding. Pt discharged in stable condition. [facility] ED NOTE HNO ID: [id number] Author: Soheila Alvarez RN Service: ? Author Type: Registered Nurse Type: ED Notes Filed: 05/29/2023 11:55 AM Note Text: Bed: E18-03 Expected date: Expected time: Means of arrival: Comments: EMS [facility] ED NOTE HNO ID: [id number] Author: Jose Elias Bliss RN Service: ? Author Type: Registered Nurse Type: ED Notes Filed: 05/29/2023 1:41 AM Note Text: Pt presents per squad with c/o hx of palpitations and dark tarry stool. Pt states he attempted to go [facility] but was kicked out by security. Pt also state he attempted to get [facility] to bring him in, [facility] ED NOTE HNO ID: [id number] Author: Kika Yao RN Service: ? Author Type: Registered Nurse Type: ED Notes Filed: 05/29/2023 1:37 AM Note Text: Bed: ED-10 Expected date: Expected time: Means of arrival: [facility] Comments: [facility] ED NOTE HNO ID: [id number] Author: Monalisa Haq RN Service: ? Author Type: Registered Nurse Type: ED Notes Filed: 05/29/2023 12:27 AM Note Text: Pt refusing treatment. Exam by Paola PANTOJA. Pt is competent at this time and wishes to leave. Request granted [facility] ED NOTE HNO ID: [id number] Author: Monalisa Haq RN Service: ? Author Type: Registered Nurse Type: ED Notes Filed: 05/29/2023 12:26 AM Note Text: Pt refuses to put wristband on, sts he has an anxiety disorder. Paola PANTOJA called to bedside to assess pt [facility] ED PROV NOTEon 05-29-2023 ED PROV NOTE HNO ID: [id number] Author: Carlos Mao MD Service: Anesthesiology Author [...] much. Of note, he was brought to [facility] this morning due to behavioral issues/agitation and left AMA. He later presented to [facility] ED with complaint of dark [...] - Caffeine Rash Other reaction(s): Shakiness - [place]cola GI Upset, Rash, Vomiting Statused by Person: Imelda Meza.(T Brittaer2) on Statused by Person: SRAVANTHI MONGE([facility]) on Statused by Person: Imelda Meza.(T Brittaer2) on Statused by Person: SRAVANTHI MONGE([facility]) on - Amlodipine Swelling - Amoxicillin GI Upset - Chocolate Flavor GI Upset - Ciprofloxacin Other: See Comments - Diazepam Unknown - Fentanyl Mental Status Change - Lorazepam GI Upset Other reaction(s): Abdominal Pain - Seasonal Allergies GI Upset Abdominal pain Abdominal pain - Serotonin Hcl Mental Status Change 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 Normal [facility] ED PROV NOTE HNO ID: [id number] Author: Lily Gregorio PA-C Service: Emergency Medicine Author Type: Physician Manager Image Type: ED Provider Notes Filed: 05/29/2023 2:21 [...] so he can let his doctor in [place] know what is to do. Patient had [...] Allergen Reactions Caffeine Rash Other reaction(s): Shakiness Marcola GI Upset, Rash, Vomiting Statused by Person: Imelda Meza.(T Carter2) on Statused by Person: SRAVANTHI MONGE([facility]) on Statused by Person: Imelda Meza.(T Carter2) on Statused by Person: SRAVANTHI MONGE([facility]) on Amlodipine Swelling Amoxicillin GI Upset Chocolate Flavor GI Upset Ciprofloxacin Other: See Comments Diazepam Unknown Fentanyl Mental Status Change Lorazepam GI Upset Other reaction(s): Abdominal Pain Seasonal Allergies GI Upset Abdominal pain Abdominal pain Serotonin Hcl Mental Status Change Other reaction(s): CARRIAGE FEEDER Reaction Chocolate GI Upset, Vomiting Lisinopril Cough [...] -- Physical Exam Exam conducted with a developer programmer present. Constitutional: General: He is not in [...] LYNNETTE Brooke MICHAEL P 05/29/23 0221 Normal [facility] ED PROV NOTE HNO ID: [id number] Author: Paola Arzola PA-C Service: Emergency Medicine Author Type: Physician Manager Image Type: ED Provider Notes Filed: 05/29/2023 12:35 [...] at earlier for BP concerns and then tonight was ringing the doorbell like crazy . [...] by: Patient, medical records and EMS personnel american sign language interpreter used: No PAST MEDICAL HISTORY Diagnosis Date [...] Allergen Reactions Caffeine Rash Other reaction(s): Shakiness Marcola GI Upset, Rash, Vomiting Statused by Person: Imelda Meza.(T Carter2) on Statused by Person: SRAVANTHI MONGE([facility]) on Statused by Person: Imelda Meza.(T Carter2) on Statused by Person: SRAVANTHI MONGE([facility]) on Amlodipine Swelling Amoxicillin GI Upset Chocolate Flavor GI Upset Ciprofloxacin Other: See Comments Diazepam Unknown Fentanyl Mental Status Change Lorazepam GI Upset Other reaction(s): Abdominal Pain Seasonal Allergies GI Upset Abdominal pain Abdominal pain Serotonin Hcl Mental Status Change Other reaction(s): CARRIAGE FEEDER Reaction Chocolate GI Upset, Vomiting Lisinopril Cough [...] / Clinical Impression Clinical Impressions as of 05/29/2334 Behavior problem, adult Anxiety Agitation MDM / Disposition / Plan 52 y/o male presents to the ED via EMS for evaluation. Upon ED arrival he wants to leave. He is alert and oriented. No SI/HI. No signs of trauma. He left AMA. Differential Diagnoses - agitation - SI/HI - intoxication Disposition The patient was AMA. SIGNATURE: LYNNETTE Chun CARMELA A 05/29/2334 [facility] Magnesium [Mass/Vol] 2.1 mg/dL Normal 1.7-2.3 [facility] Comment on above: Order Comment: Speci men Type: BLOOD SPECIMEN [facility] Address: [address] [place] [address] Performed By: #### 2 4321-2, 07433-0 #### [facility] CLIA [id number] [facility] [address] [place] ALLIED HEALTHon 05-20-2023 ALLIED HEALTH HNO ID: [id number] Author: Latha Banks Chaplain Service: Spiritual Care Author Type: Sales And Marketing Administrator Type: Allied Health Filed: 05/20/2023 4:23 PM Note Text: SPIRITUAL CARE PROGRESS NOTE SERVICE DATE: 05/20/2023 SERVICE TIME: 4:00pm After discharge pt visited spiritual care office. Pt states he is Pentecostalism and prefers to keep Kosher, [facility]. Sales And Marketing Administrator expressed confusion as these resources are for patients, pt stated he was seeking a kosher-friendly food pantry. Sales And Marketing Administrator attempted to call [employer] to ask whether they have food pantry, provided website information for pt so he could seek additional information. Pt expressed annoyance that his request was not clearly understood. expressed reassurance and empathy. To contact the [facility] Care Department: Please call [phone]. SIGNATURE: Chaplain Mame PATIENT NAME: Hosea Alvarez DATE: May 20, 2023 TIME: 4:21 PM PAGER/CONTACT #: [phone] [facility] HNO ID: [id number] Author: Anni Quintero, RT(R) Service: ? Author Type: Stick Puller Type: Allied Health Filed: 05/20/2023 12:08 PM Note Text: [...] RT Trevon(R) May 20, 2023 11:36 AM [facility] HNO ID: [id number] Author: Nicole Brennan RT(R) Service: Radiology Author [...] PERIPHERAL IV DATA: Not applicable SIGNED BY: Cathryn nAu RT(R) May 20, 2023 9:15 AM Normal [facility] CBC W Auto Differential pane l (Bld)on 05-20-2023 Basophils (Bld) [#/Vol] 10*3/uL Normal <0.11 [facility] Comment on above: Order Comment: Speci men Type: BLOOD SPECIMENOrdering Facility: [facility] Address: [address] [place] [address] Performed By: #### 5 7021-8 ####[facility]ORY[facility]IA [id number] [place] [address] [place] Basophils/100 WBC (Bld) 0.3 % Normal [facility] Comment on above: Order Comment: Speci men Type: BLOOD SPECIMENOrdering Facility: [facility] Address: [address] [place] [address] Performed By: #### 5 7021-8 ####[facility]ORATORYCLIA [id number] [place] [address] [place] Differential cell count method Nom (Bld) Auto Normal [facility] Comment on above: Order Comment: Speci men Type: BLOOD SPECIMENOrdering Facility: [facility] Address: [address] [place] [address] Performed By: #### 5 7021-8 ####[facility]ATORYCLIA [id number] [place] [address] [place] Eosinophils (Bld) [#/Vol] 0.08 10*3/uL Normal <0.46 [facility] Comment on above: Order Comment: Speci men Type: BLOOD SPECIMENOrdering Facility: [facility] Address: [address] [place] [address] Performed By: #### 5 7021-8 ####[facility]ORATORYCLIA [id number] [place] [address] [place] Eosinophils/100 WBC (Bld) 2.3 % Normal [facility] Comment on above: Order Comment: Speci men Type: BLOOD SPECIMENOrdering Facility: [facility] Address: [address] [address] Performed By: #### 5 7021-8 ####[facility]ATORYCLIA [id number] [place] [address] [place] Erythrocyte distribution width (RBC) [Ratio] 12.5 % Normal 11.5-15.0 [facility] Comment on above: Order Comment: Speci men Type: BLOOD SPECIMENOrdering Facility: [facility] Address: [address] [address] Performed By: #### 5 7021-8 ####[facility]ORATORYCLIA [id number] [place] [address] [place] Hematocrit (Bld) [Volume fraction] 38.2 % Low 39.0-51.0 [facility] Comment on above: Order Comment: Speci men Type: BLOOD SPECIMENOrdering Facility: [facility] Address: [address] [address] Performed By: #### 5 7021-8 ####[facility]ORATORYCLIA [id number] [place] [address] [place] Hemoglobin (Bld) [Mass/Vol] 13.0 g/dL Normal 13.0-17.0 [facility] Comment on above: Order Comment: Speci men Type: BLOOD SPECIMENOrdering Facility: [facility] Address: [address] [address] Performed By: #### 5 7021-8 ####[facility]ORATORYCLIA [id number] [place] [address] [place] Immature granulocytes (Bld) [#/Vol] 10*3/uL Normal <0.10 [facility] Comment on above: Order Comment: Speci men Type: BLOOD SPECIMENOrdering Facility: [facility] Address: [address] [address] Performed By: #### 5 7021-8 ####[facility] LABORATORYCLIA [id number] [place] [address] [place] Immature granulocytes/100 WBC (Bld) 0.6 % Normal [facility] Comment on above: Order Comment: Speci men Type: BLOOD SPECIMENOrdering Facility: [facility] Address: [address] [place] [address] Performed By: #### 5 7021-8 ####[facility]ATORYCLIA [id number] [address] [place] Lymphocytes (Bld) [#/Vol] 0.63 10*3/uL Low 1.00-4.00 [facility] Comment on above: Order Comment: Speci men Type: BLOOD SPECIMENOrdering Facility: [facility] Address: [address] [place] [address] Performed By: #### 5 7021-8 ####[facility] LABORATORYCLIA [id number] [address] Lymphocytes/100 WBC (Bld) 18.1 % Normal [facility] Comment on above: Order Comment: Speci men Type: BLOOD SPECIMENOrdering Facility: [facility] Address: [address] [place] [address] Performed By: #### 5 7021-8 ####[facility] LABORATORYCLIA [id number] [place] [address] [place] MCH (RBC) [Entitic mass] 29.2 pg Normal 26.0-34.0 [facility] Comment on above: Order Comment: Speci men Type: BLOOD SPECIMENOrdering Facility: [facility] Address: [address] [place] [address] Performed By: #### 5 7021-8 ####[facility] LABORATORYCLIA [id number] [place] [address] [place] MCHC (RBC) [Mass/Vol] 34.0 g/dL Normal 30.5-36.0 [facility] Comment on above: Order Comment: Speci men Type: BLOOD SPECIMENOrdering Facility: [facility] Address: [address] [place] [address] Performed By: #### 5 7021-8 ####[facility]ORATORYCLIA [id number] [place] [address] [place] MCV (RBC) [Entitic vol] 85.8 fL Normal 80.0-100.0 [facility] Comment on above: Order Comment: Speci men Type: BLOOD SPECIMENOrdering Facility: [facility] Address: [address] [place] [address] Performed By: #### 5 7021-8 ####[facility] LABORATORYCLIA [id number] [address] [id number] [place] Monocytes (Bld) [#/Vol] 0.28 10*3/uL Normal <0.87 [facility] Comment on above: Order Comment: Speci men Type: BLOOD SPECIMENOrdering Facility: [facility] Address: [address] [place] [address] Performed By: #### 5 7021-8 ####[facility]ORATORYCLIA [id number] [address] [place] Monocytes/100 WBC (Bld) 8.0 % Normal [facility] Comment on above: Order Comment: Speci men Type: BLOOD SPECIMENOrdering Facility: [facility] Address: [address] [place] [address] Performed By: #### 5 7021-8 ####[facility]ORATORYCLIA [id number] [place] [address] [place] Neutrophils (Bld) [#/Vol] 2.47 10*3/uL Normal 1.45-7.50 [facility] Comment on above: Order Comment: Speci men Type: BLOOD SPECIMENOrdering Facility: [facility] Address: [address] [address] Performed By: #### 5 7021-8 ####[facility] LABORATORYCLIA [id number] [address] [place] Neutrophils/100 WBC (Bld) 70.7 % Normal [facility] Comment on above: Order Comment: Speci men Type: BLOOD SPECIMENOrdering Facility: [facility] Address: [address] [place] [address] Performed By: #### 5 7021-8 ####[facility] LABORATORYCLIA [id number] [place] [address] [place] Nucleated RBC (Bld) [#/Vol] 10*3/uL Normal <0.01 [facility] Comment on above: Order Comment: Speci men Type: BLOOD SPECIMENOrdering Facility: [facility] Address: [address] [place] [address] Performed By: #### 5 7021-8 ####[facility] LABORATORYCLIA [id number] [place] [address] [place] Nucleated RBC/100 WBC (Bld) [Ratio] 0.0 /100 WBC Normal [facility] Comment on above: Order Comment: Speci men Type: BLOOD SPECIMENOrdering Facility: [facility] Address: [address] [place] [address] Performed By: #### 5 7021-8 ####[facility] LABORATORYCLIA [id number] [place] [address] [place] Platelet mean volume (Bld) [Entitic vol] 10.8 fL Normal 9.0-12.7 [facility] Comment on above: Order Comment: Speci men Type: BLOOD SPECIMENOrdering Facility: [facility] Address: [address] [place] [address] Performed By: #### 5 7021-8 ####[facility]ORATORYCLIA [id number] [place] [address] [place] Platelets (Bld) [#/Vol] 139 10*3/uL Low 150-400 [facility] Comment on above: Order Comment: Speci men Type: BLOOD SPECIMENOrdering Facility: [facility] Address: [address] [place] [address] Result Comment: No c lot detected. Performed By: #### 5 7021-8 ####[facility]ORATORYCLIA [id number] [place] [address] [place] RBC (Bld) [#/Vol] 4.45 10*6/uL Normal 4.20-6.00 [facility] Comment on above: Order Comment: Speci men Type: BLOOD SPECIMENOrdering Facility: [facility] Address: [address] [address] Performed By: #### 5 7021-8 ####[facility]ORATORYCLIA [id number] [place] [address] [place] WBC (Bld) [#/Vol] 3.49 10*3/uL Low 3.70-11.00 [facility] Comment on above: Order Comment: Speci men Type: BLOOD SPECIMENOrdering Facility: [facility] Address: [address] [place] [address] Performed By: #### 5 7021-8 ####[facility] LABORATORYCLIA [id number] [place] [id number] [facility] CTA ABD/PELV W IVCONon 05-20 CTA ABD/PELV [...] for aortic dissection. Contrast: IV 130 (accession [id number]), 120 (accession [id number]) ml of Omnipaque 350 CT Radiation dose: [...] IVCON TimeFrame: 6-12 weeks --END OF FINDING-- Chisel Worker: [email or web address] Transcribe Date/Time: May 20 2023 12:09P Dictated by : AMANDA HUTSON MD This examination was interpreted and the report reviewed and electronically signed by: AMANDA HUTSON MD on May 20 2023 12:20PM EST [id number] Normal [facility] CTA CHEST (GATED) WO/W IVCON on [...] for aortic dissection. Contrast: IV 130 (accession [id number]), 120 (accession [id number]) ml of Omnipaque 350 CT Radiation dose: [...] IVCON TimeFrame: 6-12 weeks --END OF FINDING-- Chisel Worker: [email or web address] Transcribe Date/Time: May 20 2023 12:09P Dictated by : AMANDA HUTSON MD This examination was interpreted and the report reviewed and electronically signed by: AMANDA HUTSON MD on May 20 2023 12:20PM EST [id number] Normal [facility] Comprehensive metabolic 2000 panelon 05-20-2023 Albumin [Mass/Vol] 4.4 g/dL Normal 3.9-4.9 [facility] Comment on above: Order Comment: Speci men Type: BLOOD SPECIMENOrdering Facility: [facility] Address: [address] [place] [id number] Performed By: #### 2 4323-8, [id number], 3040-3 ####[facility] LABORATORYCLIA [id number] [place] [address] [place] ALP [Catalytic activity/Vol] 74 U/L Normal 38-113 [facility] Comment on above: Order Comment: Speci men Type: BLOOD SPECIMENOrdering Facility: [facility] Address: [address] [place] [address] Performed By: #### 2 4323-8, [id number], 3040-3 ####[facility]ORATORYCLIA [id number] [place] [address] [place] ALT [Catalytic activity/Vol] 21 U/L Normal 10-54 [facility] Comment on above: Order Comment: Speci men Type: BLOOD SPECIMENOrdering Facility: [facility] Address: [address] [place] [address] Performed By: #### 2 4323-8, [id number], 0-3 ####[facility]ORATORYCLIA [id number] [place] [address] [place] Anion gap [Moles/Vol] 13 mmol/L Normal 9-18 [facility] Comment on above: Order Comment: Speci men Type: BLOOD SPECIMENOrdering Facility: [facility] Address: [address] [place] [address] Performed By: #### 2 4323-8, [id number], 3040-3 ####[facility]ORATORYCLIA [id number] [place] [address] [place] AST [Catalytic activity/Vol] Normal [facility] Comment on above: Order Comment: Speci men Type: BLOOD SPECIMENOrdering Facility: [facility] Address: [address] [place] [address] Result Comment: Unab le to assay due to interference from hemolysis. Suggest reorder as clinically indicated. Performed By: #### 2 4323-8, [id number], 3040-3 ####[facility]ORATORYCLIA [id number] [place] [address] [place] Bilirubin [Mass/Vol] 0.2 mg/dL Normal 0.2-1.3 [facility] Comment on above: Order Comment: Speci men Type: BLOOD SPECIMENOrdering Facility: [facility] Address: [address] [address] Performed By: #### 2 4323-8, [id number], 3040-3 ####[facility]ORATORYCLIA [id number] [place] [id number] [place] Calcium [Mass/Vol] 8.7 mg/dL Normal 8.5-10.2 [facility] Comment on above: Order Comment: Speci men Type: BLOOD SPECIMENOrdering Facility: [facility] Address: [address] [address] Performed By: #### 2 4323-8, [id number], 0-3 ####[facility]ORATORYCLIA [id number] [place] [address] [place] Chloride [Moles/Vol] 102 mmol/L Normal 97-105 [facility] Comment on above: Order Comment: Speci men Type: BLOOD SPECIMENOrdering Facility: [facility] Address: [address] [address] Performed By: #### 2 4323-8, [id number], 0-3 ####[facility]ORATORYCLIA [id number] [place] [address] [place] CO2 [Moles/Vol] 26 mmol/L Normal 22-30 [facility] Comment on above: Order Comment: Speci men Type: BLOOD SPECIMENOrdering Facility: [facility] Address: [address] [address] Performed By: #### 2 4323-8, [id number], 3040-3 ####[facility]ORATORYCLIA [id number] [place] [id number] [place] Creatinine [Mass/Vol] 1.10 mg/dL Normal 0.73-1.22 [facility] Comment on above: Order Comment: Speci men Type: BLOOD SPECIMENOrdering Facility: [facility] Address: [address] [address] Performed By: #### 2 4323-8, [id number], 3040-3 ####[facility]ORATORYCLIA [id number] [place] [id number] [place] Creatinine and Glomerular filtration rate.predicted panel (S/P/Bld) 81 mL/min/1.73m??? Normal >=60 [facility] Comment on above: Order Comment: Ariella lucero Type: BLOOD SPECIMENOrdering Facility: [facility] Address: [address] [place] [address] Result Comment: Nikole mated Glomerular Filtration Rate [...] actual GFR. Performed By: #### 2 4323-8, [id number], 3040-3 ####[facility]ORATORYCLIA [id number] [place] [address] [place] Glucose [Mass/Vol] 108 mg/dL High 74-99 [facility] Comment on above: Order Comment: Ariella lucero Type: BLOOD SPECIMENOrdering Facility: [facility] Address: [address] [place] [address] Result Comment: The [place] Diabetes Association (ADA) provides guidance for cutoff [...] Standards of Medical Care in Diabetes 2016, [place] [employer] Association. Diabetes Care. 2016.39(Suppl 1). Performed By: #### 2 4323-8, [id number], 3040-3 ####[facility] LABORATORYCLIA [id number] [place] [address] [place] Potassium [Moles/Vol] 4.1 mmol/L Normal 3.7-5.1 [facility] Comment on above: Order Comment: Speci men Type: BLOOD SPECIMENOrdering Facility: [facility] Address: [address] [place] [address] Performed By: #### 2 4323-8, [id number], 3040-3 ####[facility] LABORATORYCLIA [id number] [place] [address] [place] Protein [Mass/Vol] 7.0 g/dL Normal 6.3-8.0 [facility] Comment on above: Order Comment: Speci men Type: BLOOD SPECIMENOrdering Facility: [facility] Address: [address] [place] [address] Performed By: #### 2 4323-8, [id number], 0-3 ####[facility]ORATORYCLIA [id number] [place] [address] [place] Sodium [Moles/Vol] 141 mmol/L Normal 136-144 [facility] Comment on above: Order Comment: Speci men Type: BLOOD SPECIMENOrdering Facility: [facility] Address: [address] [place] [address] Performed By: #### 2 4323-8, [id number], 3040-3 ####[facility] LABORATORYCLIA [id number] [place] [address] [place] Urea nitrogen [Mass/Vol] 15 mg/dL Normal 9-24 [facility] Comment on above: Order Comment: Speci men Type: BLOOD SPECIMENOrdering Facility: [facility] Address: [address] [place] [address] Performed By: #### 2 4323-8, [id number], 3040-3 ####[facility] LABORATORYCLIA [id number] [place] [id number] [place] ECG COMPLETEon 05-20-2023 ECG COMPLETE Ventricular Rate : 8 1 BPM Atrial Rate : 80 BPM P-R Interval : 178 ms QRS Duration : 102 ms Q-T Interval : 353 ms QTC Calculation(Bazett) : 410 ms Calculated P [place] : 26 degrees Calculated R [place] : -28 degrees Calculated T [place] : 0 degrees Sinus rhythm Left ventricular hypertrophy Abnormal ECG see epic note pr Dr Lily Rodriguez about this ekg Confirmed by MD RODRIGUEZ MICHAEL ([id number]), web editor ELENI LERNER ([id number]) on 06/13/2023 11:33:48 AM NAME : HOSEA ALVAREZ PID : [id number] : 1970 Gender : Male Race : ORD : [id number] Procedure Date : May 20 2023 07:53:32 Edit Date : Jun 13 2023 11:33:50 Diagnosis: Sinus rhythm Left ventricular hypertrophy Abnormal ECG see epic note pr Dr Lily Rodriguez about this ekg Confirmed by MD RODRIGUEZ MICHAEL ([id number]), web editor ELENI LERNER ([id number]) on 06/13/2023 11:33:48 AM Test Reason : Pre-OP Location : 402 : FVED [place] Overread By : MD RODRIGUEZ MICHAEL Edited By : ELENI LERNER Referred By : , Acquired by : SIOBHAN [facility] ED NOTEon 05-20-2023 ED NOTE HNO ID: [id number] Author: Jacey Hansen RN Service: ? Author Type: Registered Nurse Type: ED Notes Filed: 05/20/2023 3:14 PM Note Text: Spoke with at this time. Notified him of most recent pressure post BP meds given of 165/109. Per ok to D/C pt at this time. [facility] ED NOTE HNO ID: [id number] Author: Shayy Oneal RN Service: ? Author Type: Registered Nurse Type: ED Notes Filed: 05/20/2023 12:13 PM Note Text: notified of pt's blood pressure at this time [facility] ED PROV NOTEon 05-20-2023 ED PROV NOTE HNO ID: [id number] Author: Lily Rodriguez MD Service: ? Author [...] Allergen Reactions Caffeine Rash Other reaction(s): Shakiness [place]col[place] GI Upset, Rash, Vomiting Statused by Person: Tammy. Derrick(Altaf Meza2) on Statused by Person: SRAVANTHI MONGE([facility]) on Statused by Person: Tammy. Derrick(T Brittaer2) on Statused by Person: SRAVANTHI MONGE([facility]) on Amlodipine Swelling Amoxicillin GI Upset Chocolate Flavor GI Upset Ciprofloxacin Other: See Comments Diazepam Unknown Fentanyl Mental Status Change Lorazepam GI Upset Other reaction(s): Abdominal Pain Seasonal Allergies GI Upset Abdominal pain Abdominal pain Serotonin Hcl Mental Status Change Other reaction(s): CARRIAGE FEEDER Reaction Chocolate GI Upset, Vomiting Lisinopril Cough [...] rash. Ne (more content not included)... Normal [facility] EKGon 05-20-2023 Electrocardiogram Ventricular Rate : 8 2 BPM Atrial Rate : 82 BPM P-R Interval : 168 ms QRS Duration : 102 ms Q-T Interval : 379 ms QTC Calculation(Bazett) : 443 ms Calculated P [place] : 40 degrees Calculated R [place] : 10 degrees Calculated T [place] : -2 degrees Sinus rhythm Probable anterolateral infarct, old Borderline T abnormalities, inferior leads Abnormal ECG NO STEMI. Confirmed by DEVYN PRUITT DO ([id number]), web editor HELGA GILMORE ([id number]) on 05/20/2023 11:09:02 AM NAME : HOSEA ALVAREZ PID : [id number] : 1970 Gender : Male Race : ORD : Procedure Date : May 20 2023 02:30:40 Edit Date : May 20 2023 11:09:03 Diagnosis: Sinus rhythm Probable anterolateral infarct, old Borderline T abnormalities, inferior leads Abnormal ECG NO STEMI. Confirmed by DEVYN PRUITT DO ([id number]), web editor HELGA GILMORE ([id number]) on 05/20/2023 11:09:02 AM Test Reason : Location : 402 : [place] Overread By : DEVYN PRUITT DO Edited By : HELGA GILMORE Referred By : , Acquired by : [id number], Normal [facility] HIGH SENSITIVITY TROPONIN T (INITIAL)on 05-20-2023 Troponin T.cardiac High sensitivity method [Mass/Vol] 8 ng/L Normal <12 [facility] Comment on above: Order Comment: Speci men Type: BLOOD SPECIMENOrdering Facility: [facility] Address: [place] [address] Result Comment: When assessing risk for acute [...] day MACE. Performed By: #### 2 4323-8, [id number], 3040-3 ####[facility]ORYCLIA [id number] [address] [place] HIGH SENSITIVITY TROPONIN T (SECOND)on 05-20-2023 Troponin T.cardiac High sensitivity method [Mass/Vol] 8 ng/L Normal <12 [facility] Comment on above: Order Comment: Speci men Type: BLOOD SPECIMEN [facility] Address: [address] [address] Result Comment: When assessing risk for acute [...] 30 day MACE. Performed By: #### L [id number] #### [facility] CLIA [id number] [place] Lipase SerPl-cCncon 05-20-20 23 Lipase [Catalytic activity/Vol] 23 U/L Normal 16-61 [facility] Comment on above: Order Comment: Ariella men Type: BLOOD SPECIMENOrdering Facility: [facility] Address: [address] [address] Performed By: #### 2 4323-8, [id number], 3040-3 ####[facility]ORY[facility] [id number] [address] [place] Urinalysis complete panel (U )on 05-20-2023 Bilirubin Ql (U) Negative Normal Negative [facility] Comment on above: Order Comment: Speci men Type: URINE SPECIMEN [facility] Address: [address] [place] [address] Performed By: #### 2 4356-8 #### [facility] CLIA [id number] [place] Clarity (Unsp spec) Clear Normal Clear [facility] Comment on above: Order Comment: Speci men Type: URINE SPECIMEN [facility] Address: [address] [place] [address] Performed By: #### 2 4356-8 #### [facility] CLIA [id number] [address] [place] [address] [place] Color (U) Light Yellow Normal Yellow [facility] Comment on above: Order Comment: Speci men Type: URINE SPECIMEN [facility] Address: [address] [place] [address] Performed By: #### 2 4356-8 #### [facility] CLIA [id number] [address] [place] [address] [place] Glucose Test strip (U) [Mass/Vol] Negative Normal Trace, Negative [facility] Comment on above: Order Comment: Speci men Type: URINE SPECIMEN [facility] Address: [address] [place] [address] Performed By: #### 2 4356-8 #### [facility] CLIA [id number] [address] [place] [address] [place] Hemoglobin Ql (U) Negative Normal Negative, Trace [facility] Comment on above: Order Comment: Speci men Type: URINE SPECIMEN [facility] Address: [address] [place] [address] Performed By: #### 2 4356-8 #### [facility] CLIA [id number] [address] [place] [address] [place] Ketones Ql (U) Negative Normal Negative, Trace [facility] Comment on above: Order Comment: Speci men Type: URINE SPECIMEN [facility] Address: [address] [place] [address] Performed By: #### 2 4356-8 #### [facility] CLIA [id number] [address] [place] [address] [place] Leukocyte esterase Test strip Ql (U) Negative Normal Negative, 25 [place]ba/uL [facility] Comment on above: Order Comment: Speci men Type: URINE SPECIMEN [facility] Address: [address] [place] [address] Performed By: #### 2 4356-8 #### [facility] CLIA [id number] [address] [place] [address] [place] Nitrite Ql (U) Negative Normal Negative [facility] Comment on above: Order Comment: Speci men Type: URINE SPECIMEN [facility] Address: [address] [place] [address] Performed By: #### 2 4356-8 #### [facility] CLIA [id number] [address] [place] [address] [place] pH (U) 6.5 [pH] Normal 5.0-8.0 [facility] Comment on above: Order Comment: Speci men Type: URINE SPECIMEN [facility] Address: [address] [place] [address] Performed By: #### 2 4356-8 #### [facility] CLIA [id number] [address] [place] [address] Protein (U) [Mass/Vol] Trace Normal Trace, Negative [facility] Comment on above: Order Comment: Speci men Type: URINE SPECIMEN [facility] Address: [address] [place] [address] Performed By: #### 2 4356-8 #### [facility] CLIA [id number] [address] [place] [address] [place] RBC LM.HPF (Urine sed) [#/Area] 0-3 /HPF Normal 0-3 /HPF [facility] Comment on above: Order Comment: Speci men Type: URINE SPECIMEN [facility] Address: [address] [place] [address] Performed By: #### 2 4356-8 #### [facility] CLIA [id number] [address] [place] [address] [place] Specific gravity (U) [Rel density] 1.013 Normal 1.005-1.030 [facility] Comment on above: Order Comment: Speci men Type: URINE SPECIMEN [facility] Address: [address] [address] Performed By: #### 2 4356-8 #### [facility] CLIA [id number] [address] [place] [address] [place] Urobilinogen Ql (U) Negative Normal Negative [facility] Comment on above: Order Comment: Speci men Type: URINE SPECIMEN [facility] Address: [address] [address] Performed By: #### 2 4356-8 #### [facility] CLIA [id number] [address] [place] [address] [place] WBC LM.HPF (Urine sed) [#/Area] 0-5 /HPF Normal 0-5 /HPF [facility] Comment on above: Order Comment: Speci men Type: URINE SPECIMEN [facility] Address: [address] [address] Performed By: #### 2 4356-8 #### [facility] CLIA [id number] [address] [place] [address] [place] XR CHEST 1V [...] is unremarkable. IMPRESSION: No acute cardiopulmonary process. 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 Author [...] All belongings with patient. Pt departed ED. [facility] ED NOTE HNO ID: [id number] Author: Luís Monroy RN Service: ? Author Type: Registered Nurse Type: ED Notes Filed: 05/18/2023 7:50 PM Note Text: Pt talking to RN, asking what nationality she is. Pt states you don't have a big butt like most Hispanics I know. [facility] ED NOTE HNO ID: [id number] Author: Tere Williamson RN Service: ? Author Type: Registered Nurse Type: ED Notes Filed: 05/18/2023 6:18 PM Note Text: Patient to the ED with c/o R toe pain. States infection however upon assessment appears to be a corn/callus which he has on multiple toes. No redness or erythema. [facility] ED PROV NOTEon 05-18-2023 ED PROV NOTE HNO ID: [id number] Author: Liam Pham MD Service: Emergency Medicine [...] Allergen Reactions Caffeine Rash Other reaction(s): Shakiness [place] GI Upset, Rash, Vomiting Statused by Person: Imelda Meza.(T Carter2) on Statused by Person: SRAVANTHI MONGE([facility]) on Statused by Person: Imelda Meza.(T Carter2) on Statused by Person: SRAVANTHI MONGE([facility]) on Amlodipine Swelling Amoxicillin GI Upset Chocolate Flavor GI Upset Ciprofloxacin Other: See Comments Diazepam Unknown Fentanyl Mental Status Change Lorazepam GI Upset Other reaction(s): Abdominal Pain Seasonal Allergies GI Upset Abdominal pain Abdominal pain Serotonin Hcl Mental Status Change Other reaction(s): 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 Provider Location: [facility] Patient Location: Outpatient Hospital Physical [...] the patient o (more content not included)... [facility] URINE CULTUREon 05-14-2023 Bacteria identified Cx Nom (U) Specimen source XXX: CLEAN VOIDED MIDSTREAM Performed at [address] [address] Service Cmnt XXX-Imp: NONE Performed at [address] [address] CC Number Ur: <10,000 CFU/ml Bacteria identified: STAPHYLOCOCCUS AUREUS NO FURTHER WORK-UP. Performed at [address] [address] : FINAL 05/14/2023 [facility] Comment on above: Performed By: #### E JOHN #### [facility] [address] [id number] ADD ON LAB REQUESTon 023 ADD ON REQUEST Normal [facility] Comment on above: Result Comment: ZAHIRA Kline [place] Performed at [address] [address] Performed By: #### A DDON #### [facility] [place] [address] ADD ON TESTS MG Normal [facility] Comment on above: Performed By: #### A DDON #### [facility] [place] [address] ALCOHOL (ETHYL)on 05-11-2023 ALCOHOL (ETHYL) Normal 0-0.010 [facility] Comment on above: Result Comment: <0.0 10 Performed at [address] [address] Performed By: #### E JOHN #### [facility] [address] [address] Alcoholon 05-11-2023 Ethanol [Mass/Vol] mg/dL [facility] Comment on above: Performed at [address] [address] B Natriuretic Peptideon 04-23 Natriuretic peptide.B prohormone N-Terminal [Mass/Vol] 36 PG/ML 0 - 138 PG/ML [facility] Comment on above: LESS THAN RESULT CHECKED Reference ranges are based on clinical submission data. These ranges represent the 95th percentile of normal cut-off points. As NT pro-BNP values approach 1000 pg/ml, clinical symptoms are more likely associated with CHF. Performed at [address] [address] Bacteria identified Cx Nom ( U)on 05-11-2023 Bacteria identified Cx Nom (Unsp spec) STAPHYLOCOCCUS AUREUS NO FURTHER WORK-UP. Performed at [address] [place] count (U) [#/Vol] <10,000 CFU/ml [facility] REPORT STATUS -[facility] DATA CONVERSION FINAL 05/14/2023 [facility] Service comment (Unsp spec) [Interp] NONE Performed at [address] [place] [address] [facility] Specimen source Nom (Unsp spec) CLEAN VOIDED MIDSTREAM Performed at [address] [address] [facility] CBC W Differential panel, me thod unspecified (Bld)on 05-11-2023 Basophils (Bld) [#/Vol] 0.01 10*3/uL [facility] Basophils/100 WBC (Bld) 0.30 % 0 - 1 % [facility] Differential cell count method Nom (Bld) AUTO DIFF [facility] Eosinophils (Bld) [#/Vol] 0.09 10*3/uL [facility] Eosinophils/100 WBC (Bld) 2.70 % 0 - 3 % [facility] Erythrocyte distribution width (RBC) [Entitic vol] 39.0 fL [facility] Erythrocyte distribution width (RBC) [Ratio] 12.5 % 11.7 - 15.0 % [facility] Hematocrit (Bld) [Volume fraction] 39.4 % Low 41 - 50 % [facility] Hemoglobin (Bld) [Mass/Vol] 13.4 g/dL Low [facility] Immature granulocytes (Bld) [#/Vol] 0.01 10*3/uL [facility] Interpretation and review of laboratory results Abnormal [facility] Lymphocytes (Bld) [#/Vol] 0.99 10*3/uL Low [facility] Lymphocytes/100 WBC (Bld) 29.50 % 20 - 40 % [facility] MCH (RBC) [Entitic mass] 29.5 pg 26 - 34 PG [facility] MCHC (RBC) [Mass/Vol] 34.0 % 31 - 37 % [facility] MCV (RBC) [Entitic vol] 86.8 fL [facility] Monocytes (Bld) [#/Vol] 0.26 10*3/uL [facility] Monocytes/100 WBC (Bld) 7.70 % 0 - 8 % [facility] Neutrophils (Bld) [#/Vol] 2.00 10*3/uL K/UL [facility] Comment on above: Performed at [address] [place] [address] Neutrophils.immature/ 100 WBC (Bld) 0.30 % 0.0 - 1.0 % [facility] Nucleated RBC/100 WBC (Bld) [Ratio] 0 % 0 /100 WBC [facility] Platelet mean volume (Bld) [Entitic vol] 11.1 fL [facility] Platelets (Bld) [#/Vol] 133 10*3/uL [facility] Comment on above: SAMPLE INTEGRITY [place] CKED CONSISTENT WITH PERIPHERAL SMEAR RESULT CHECKED RBC (Bld) [#/Vol] 4.54 10*6/uL [facility] Segmented neutrophils/100 WBC (Bld) 59.50 % 50 - 70 % [facility] WBC (Bld) [#/Vol] 3.2 10*3/uL [facility] CBC with Diffon 05-11-2023 AB IMMATURE NEUT 0.01 K/UL Normal 0.0-0.1 [facility] Comment on above: Performed By: #### E JOHN #### [facility] [address] [address] ABS BASO 0.01 K/UL Normal 0.00-0.22 [facility] Comment on above: Performed By: #### E JOHN #### [facility] [address] [address] ABS EOS 0.09 K/UL Normal 0-0.45 [facility] Comment on above: Performed By: #### E JOHN #### [facility] [address] [address] ABS NEUTROPHILS 2.00 K/UL Normal 1.8-7.7 [facility] Comment on above: Performed By: #### E JOHN #### [facility] [address] [address] ABS.NEUT.CALCULATED 2.00 K/UL Normal [facility] Comment on above: Result Comment: Perf ormed at [address] [place] [address] Performed By: #### E JOHN #### [facility] [address] [address] Basophils/100 WBC (Bld) 0.30 % Normal 0-1 [facility] Comment on above: Performed By: #### E JOHN #### [facility] [address] [place] [address] DIFF TYPE AUTO DIFF Normal [facility] Comment on above: Performed By: #### E JOHN #### [facility] [address] [place] [address] Eosinophils/100 WBC (Bld) 2.70 % Normal 0-3 [facility] Comment on above: Performed By: #### E JOHN #### [address] [address] [place] [address] Erythrocyte distribution width (RBC) [Ratio] 12.5 % Normal 11.7-15.0 [facility] Comment on above: Performed By: #### E JOHN #### [address] [address] [place] [address] Hematocrit (Bld) [Volume fraction] 39.4 % Low 41-50 [facility] Comment on above: Performed By: #### E JOHN #### [address] [address] [place] [address] Hemoglobin (Bld) [Mass/Vol] 13.4 g/dL Low 13.5-16.5 [facility] Comment on above: Performed By: #### E JOHN #### [address] [address] [place] [address] Lymphocytes (Bld) [#/Vol] 0.99 10*3/uL Low 1.2-3.2 [facility] Comment on above: Performed By: #### E JOHN #### [facility] [address] [place] [address] Lymphocytes/100 WBC (Bld) 29.50 % Normal 20-40 [facility] Comment on above: Performed By: #### E JOHN #### [facility] [address] [place] [address] MCH (RBC) [Entitic mass] 29.5 pg Normal 26-34 [facility] Comment on above: Performed By: #### E JOHN #### [facility] [address] [address] [place] [address] MCHC 34.0 % Normal 31-37 [facility] Comment on above: Performed By: #### E JOHN #### [facility] [address] [address] [place] [address] MCV (RBC) [Entitic vol] 86.8 fL Normal 80-100 [facility] Comment on above: Performed By: #### E JOHN #### [facility] [address] [place] [address] MEAN PLT VOL 11.1 CU Normal 7.0-12.6 [facility] Comment on above: Performed By: #### E JOHN #### [address] [address] [place] [address] Monocytes (Bld) [#/Vol] 0.26 10*3/uL Normal 0-0.8 [facility] Comment on above: Performed By: #### E JOHN #### [address] [address] [place] [address] Monocytes/100 WBC (Bld) 7.70 % Normal 0-8 [facility] Comment on above: Performed By: #### E JOHN #### [address] [address] [place] [address] Neutrophils/100 WBC (Bld) 0.30 % Normal 0.0-1.0 [facility] Comment on above: Performed By: #### E JOHN #### [address] [address] [place] [address] Neutrophils/100 WBC (Bld) 59.50 % Normal 50-70 [facility] Comment on above: Performed By: #### E JOHN #### [facility] [address] [address] [place] [address] NRBC'S 0 /100 WBC Normal 0 [facility] Comment on above: Performed By: #### E JOHN #### [facility] [address] [address] [place] [address] Platelets (Bld) [#/Vol] 133 10*3/uL Low 150-450 [facility] Comment on above: Result Comment: SAMP LE INTEGRITY CHECKED CONSISTENT WITH PERIPHERAL SMEAR RESULT CHECKED Performed By: #### E JOHN #### [facility] [address] [place] [address] RBC (Bld) [#/Vol] 4.54 10*6/uL Normal 4.5-5.5 [facility] Comment on above: Performed By: #### E JOHN #### [facility] [address] [address] [place] [address] RDW-SD 39.0 FL Normal 37.0-54.0 [facility] Comment on above: Performed By: #### E JOHN #### [facility] [address] [address] [place] [address] WBC (Bld) [#/Vol] 3.2 10*3/uL Low 4.5-11.0 [facility] Comment on above: Performed By: #### E JOHN #### [address] [address] [place] [address] CHEST 2 VIEWon 05-11-2023 CHEST 2 VIEW *FINAL Date of Service: 05/11/2023 15:46 Adm #: [id number] Reading Dr:TARAN PINA Signoff Dr: TARAN PINA PROCEDURE: CHEST 2 VIEW - WXR 0020 REASON FOR EXAM: Palpitations RESULT: Patient Name: HOSEA ALVAREZ STUDY: CHEST 2 VIEW 05/11/2023 3:46 pm INDICATION: Palpitations COMPARISON: 01/29/2023 ACCESSION NUMBER(S): [id number] ORDERING CLINICIAN: THALIA ROBERTO TECHNIQUE: Two views chest FINDINGS: Cardiomediastinal silhouette is mildly enlarged. Aorta is tortuous. No infiltrate or effusion identified. Mild multilevel anterior osteophyte formation midthoracic spine. No compression deformity demonstrated. IMPRESSION: No acute cardiopulmonary process. Dictation workstation: [id number] Original Interpreting Physician: TARAN PINA MD Original Transcribed by/Date: MMODAL May 11 2023 3:18P Original Electronically Signed by/Date: TARAN PINA MD May 11 2023 3:59P Addendum Interpreting Physician: Addendum Transcribed by/Date: NO ADDENDUM Addendum Electronically Signed by/Date: Normal [facility] COMPREHENSIVE METABOLIC PANE Bart 05-11-2023 Albumin [Mass/Vol] 4.1 g/dL Normal 3.5-5.0 [facility] Comment on above: Performed By: #### E JOHN #### [facility] [address] [place] [address] Albumin/Globulin [Mass ratio] 1.5 {ratio} Normal 1.5-3.0 [facility] Comment on above: Performed By: #### E JOHN #### [facility] [address] [place] [address] ALP [Catalytic activity/Vol] 63 U/L Normal 35-125 [facility] Comment on above: Performed By: #### E JOHN #### [facility] [address] [place] [address] ALT [Catalytic activity/Vol] 24 U/L Normal 5-40 [facility] Comment on above: Performed By: #### E JOHN #### [facility] [address] [place] [address] Anion gap [Moles/Vol] 8 mmol/L Normal 0-19 [facility] Comment on above: Performed By: #### E JOHN #### [facility] [address] [place] [address] AST [Catalytic activity/Vol] 17 U/L Normal 5-40 [facility] Comment on above: Performed By: #### E JOHN #### [facility] [address] [place] [address] Bilirubin [Mass/Vol] 0.3 mg/dL Normal 0.1-1.2 [facility] Comment on above: Performed By: #### E JOHN #### [facility] [address] [place] [address] Calcium [Mass/Vol] 9.2 mg/dL Normal 8.5-10.4 [facility] Comment on above: Performed By: #### E JOHN #### [facility] [address] [address] Chloride [Moles/Vol] 105 mmol/L Normal 97-107 [facility] Comment on above: Performed By: #### E JOHN #### [facility] [address] [place] [address] CO2 [Moles/Vol] 27 mmol/L Normal 24-31 [facility] Comment on above: Performed By: #### E JOHN #### [facility] [address] [place] [address] Creatinine [Mass/Vol] 1.2 mg/dL Normal 0.4-1.6 [facility] Comment on above: Performed By: #### E JOHN #### [place] [address] [place] [address] ESTIMATED GFR 73 mL/min/1.73 m2 Normal [facility] Comment on above: Result Comment: CALCULATIONS OF ESTIMATED GFR ARE PERFORMED USING THE 2020 CKD-EPI STUDY REFIT EQUATION WITHOUT THE RACE VARIABLE FOR THE IDMS-TRACEABLE CREATININE METHODS. https://jasn.asnjournals.org/content//ASN.008934 0800 Performed at [address] [place] [address] Performed By: #### E JOHN #### [address] [address] Globulin (S) [Mass/Vol] 2.7 g/dL Normal 1.9-3.7 [facility] Comment on above: Performed By: #### E JOHN #### [facility] [address] [place] [address] Glucose [Mass/Vol] 86 mg/dL Normal 65-99 [facility] Comment on above: Performed By: #### E JOHN #### [facility] [address] [place] [address] Potassium [Moles/Vol] 3.8 mmol/L Normal 3.4-5.1 [facility] Comment on above: Performed By: #### E JOHN #### [facility] [address] [place] [address] Protein [Mass/Vol] 6.8 g/dL Normal 5.9-7.9 [facility] Comment on above: Performed By: #### E JOHN #### [facility] [address] [place] [address] Sodium [Moles/Vol] 140 mmol/L Normal 133-145 [facility] [facility] Comment on above: Performed By: #### E JOHN #### Main Laboratory [facility] [address] [place] [address] Urea nitrogen [Mass/Vol] 17 mg/dL Normal 8-25 [facility] Comment on above: Performed By: #### E JOHN #### Main Laboratory [facility] [address] [place] [address] Urea nitrogen/Creatinine [Mass ratio] 14.2 mg/mg Normal 8-21 [facility] Comment on above: Performed By: #### E JOHN #### [facility] [address] [address] Comprehensive metabolic 2000 panelon 05-11-2023 Albumin [Mass/Vol] 4.1 g/dL [facility] Albumin/Globulin [Mass ratio] 1.5 {ratio} [facility] ALP (Bld) [Catalytic activity/Vol] 63 U/L 35 - 125 U/L [facility] ALT [Catalytic activity/Vol] 24 U/L 5 - 40 U/L [facility] Anion gap [Moles/Vol] 8 mmol/L [facility] AST [Catalytic activity/Vol] 17 U/L 5 - 40 U/L [facility] Bilirubin [Mass/Vol] 0.3 mg/dL [facility] Calcium [Mass/Vol] 9.2 mg/dL [facility] Chloride [Moles/Vol] 105 mmol/L [facility] CO2 [Moles/Vol] 27 mmol/L [facility] Creatinine [Mass/Vol] 1.2 mg/dL [facility] GFR/1.73 sq M.predicted MDRD (S/P/Bld) [Vol rate/Area] 73 mL/min/{1.73_m2} mL/min/1.73 m2 [facility] Comment on above: CALCULATIONS OF NIKOLE MATED GFR ARE PERFORMED USING THE 2021 CKD-EPI STUDY REFIT EQUATION WITHOUT THE RACE VARIABLE FOR THE IDMS-TRACEABLE CREATININE METHODS. https://jasn.asnjournals.org/content//ASN.545714 7938 Performed at [place] [address] Globulin (S) [Mass/Vol] 2.7 g/dL [facility] Glucose [Mass/Vol] 86 mg/dL [facility] Potassium [Moles/Vol] 3.8 mmol/L [facility] Protein [Mass/Vol] 6.8 g/dL [facility] Sodium [Moles/Vol] 140 mmol/L [facility] Urea nitrogen [Mass/Vol] 17 mg/dL [facility] Urea nitrogen/Creatinine [Mass ratio] 14.2 mg/mg [facility] D-DIMERon 05-11-2023 D-DIMER 0.28 MG/L FEU Normal 0.19-0.50 [facility] Comment on above: Result Comment: THROMBOEMBOLIC EVENTS [...] IN PATIENTS RECEIVING ANTI-COAGULATION THERAPY. Performed at [place] [id number] Performed By: #### U ACUL #### Main Laboratory [address] [address] D-Dimer, VTE Exclusionon Fibrin D-dimer FEU (PPP) [Mass/Vol] 0.28 [facility] Comment on above: THROMBOEMBOLIC EVENT S [...] IN PATIENTS RECEIVING ANTI-COAGULATION THERAPY. Performed at [place] [address] DRUG SCREEN,URINEon 05-11-20 Amphetamines Screen method >1000 ng/mL Ql (U) Negative [facility] Barbiturates Screen method >300 ng/mL Ql (U) Negative [facility] Benzodiazepines Screen method >300 ng/mL Ql (U) Negative [facility] Benzoylecgonine Screen method >300 ng/mL Ql (U) Negative [facility] Cannabinoids Screen method >50 ng/mL Ql (U) Negative [facility] Drug screen comment (U) [Interp] These [...] ng/ml OXYCODONE 100 ng/ml FENTANYL 5 ng/ml [facility] fentaNYL+Norfentanyl Screen Ql (U) NEGATIVE Performed at [address] [address] [facility] Methadone Ql (U) Negative [facility] Opiates Screen method >300 ng/mL Ql (U) Negative [facility] oxyCODONE Ql (U) Negative [facility] Phencyclidine Screen method >25 ng/mL Ql (U) Negative [facility] EKGon 05-11-2023 Electrocardiogram EKG Ventricular Rate : 67 BPM Atrial Rate : 67 BPM P-R Interval : 190 ms QRS Duration : 100 ms Q-T Interval : 364 ms QTC Calculation(Bazett) : 384 ms Calculated P [place] : 36 degrees Calculated R [place] : -4 degrees Calculated T [place] : 14 degrees Diagnosis:Normal sinus rhythm Normal ECG When compared with ECG of 22-JAN-2023 18:34, No significant change was found Confirmed by CHERYL CULLEN ([id number]) on 05/14/2023 3:44:16 PM Normal [facility] Fibrin D-dimer FEU (PPP) [Ma ss/Vol]on 05-11-2023 [facility] HS TROPONIN Ton 05-11-2023 HS TROPONIN T DELTA 1 Normal 0-4 [facility] Comment on above: Result Comment: Perf ormed at [place] [address] Performed By: #### H STROP #### Main Laboratory [address] [address] HS TROPONIN T,GEN 5 7 NG/L Normal <15 [facility] Comment on above: Result Comment: Sex Specific [...] last biotin administration. Performed By: #### H STROP #### Main Laboratory [address] [address] HS TROPONIN T DELTA Normal 0-4 [facility] Comment on above: Result Comment: No p revious result Performed at [place] [address] Performed By: #### E JOHN #### [facility] [address] [place] [address] HS TROPONIN T,GEN 5 8 NG/L Normal <15 [facility] Comment on above: Result Comment: Sex Specific [...] administration. Performed By: #### E JOHN #### [facility] [address] [address] Hs Troponin Ton 05-11-2023 Hs Troponin T Delta 1 0 - 4 [facility] Comment on above: Performed at [facility] [address] [facility] [address] Troponin T.cardiac [Mass/Vol] 7 ug/L [facility] Comment on above: Sex Specific Referen [...] until 8 hours following last biotin administration. [facility] Hs Troponin T Delta No previous result 0 - 4 [facility] Comment on above: Performed at [facility] [address] [facility] [address] Troponin T.cardiac [Mass/Vol] 8 ug/L [facility] Comment on above: Sex Specific Referen [...] until 8 hours following last biotin administration. [facility] LIPASE PSon 05-11-2023 LIPASE PS 29 U/L Normal 16-63 [facility] Comment on above: Result Comment: Perf ormed at [address] [address] Performed By: #### L IPS #### [facility] [address] [address] Laboratoryon 05-11-2023 Drug screen comment (U) [Interp] [...] FENTANYL 5 ng/ml (Reference Range: not available) [facility] - Chemistry and C hemistry - [...] 8 hours following last biotin administration. [facility] Bilirubin Ql (U) Bili NEGATIVE (NEG ) [facility] pH (U) Urine pH 5.5 (4.6-8.0 ) 4.6 - 8.0 [facility] Specific gravity (U) [Rel density] Urine Sp [place] 1.020 (1.005-1.030 ) 1.005 - 1.030 [facility] Urobilinogen Ql (U) Uro NORMAL MG/DL (0- 1.0 MG/DL) 0 - 1.0 MG/DL [facility] Albumin [Mass/Vol] Albumin 4.1 GM/DL (3.5-5.0 GM/DL) 3.5 - 5.0 GM/DL [facility] Albumin/Globulin [Mass ratio] Albumin Globulin Ratio 1.5 RATIO (1.5-3.0 RATIO) 1.5 - 3.0 RATIO [facility] ALP (Bld) [Catalytic activity/Vol] Alk Phosphatase 63 U/L (35-125 U/L) 35 - 125 U/L [facility] ALT [Catalytic activity/Vol] ALT 24 U/L (5-40 U/L) 5 - 40 U/L [facility] Anion gap [Moles/Vol] Anion Gap 8 MMOL/L (0-19 MMOL/L) 0 - 19 MMOL/L [facility] AST [Catalytic activity/Vol] AST 17 U/L (5-40 U/L) 5 - 40 U/L [facility] Bilirubin [Mass/Vol] Total Bilirubin 0.3 MG/DL (0.1-1.2 MG/DL) 0.1 - 1.2 MG/DL [facility] Calcium [Mass/Vol] Calcium 9.2 MG/DL (8.5-10.4 MG/DL) 8.5 - 10.4 MG/DL [facility] Chloride [Moles/Vol] Chloride 105 MMOL/L (97-107 MMOL/L) 97 - 107 MMOL/L [facility] CO2 [Moles/Vol] Carbon Dioxide 27 MM OL/L (24-31 MMOL/L) 24 - 31 MMOL/L [facility] Creatinine [Mass/Vol] Creatinine R 1.2 M G/DL (0.4-1.6 MG/DL) 0.4 - 1.6 MG/DL [facility] GFR/1.73 sq M.predicted MDRD (S/P/Bld) [Vol rate/Area] EGFR 73 mL/min/1.73 m2 (Reference Range: not available) CALCULATIONS OF ESTIMATED GFR ARE PERFORMED USING THE 2020 CKD-EPI STUDY REFIT EQUATION WITHOUT THE RACE VARIABLE FOR THE IDMS-TRACEABLE CREATININE METHODS. https://jasn.asnjournals .org/content/early/06/14/ASN.0051111276 Performed at [address] [address] [facility] [place] Globulin (S) [Mass/Vol] Globulin 2.7 G/DL (1.9-3.7 G/DL) 1.9 - 3.7 G/DL [facility] Glucose [Mass/Vol] Glucose 86 MG/DL (65 -99 MG/DL) 65 - 99 MG/DL [facility] Lipase [Catalytic activity/Vol] Lipase 29 U/L (16-63 U/L) Performed at [address] [address] 16 - 63 U/L [facility] [place] Magnesium [Mass/Vol] Magnesium 1.9 MG/DL (1.6-3.1 MG/DL) Performed at [address] [address] 1.6 - 3.1 MG/DL [facility] Natriuretic peptide.B prohormone N-Terminal [Mass/Vol] Pro BNP 36 PG/ML (0-138 PG/ML) LESS THAN RESULT CHECKED Reference ranges are based on clinical submission data. These ranges represent the 95th percentile of normal cut-off points. As NT pro-BNP values approach 1000 pg/ml, clinical symptoms are more likely associated with CHF. Performed at [place] [address] 0 - 138 PG/ML [facility] [place] Potassium [Moles/Vol] Potassium R 3.8 MM OL/L (3.4-5.1 MMOL/L) 3.4 - 5.1 MMOL/L [facility] Protein [Mass/Vol] Total Protein 6.8 G/ DL (5.9-7.9 G/DL) 5.9 - 7.9 G/DL [facility] Sodium [Moles/Vol] Sodium 140 MMOL/L (133-145 MMOL/L) 133 - 145 MMOL/L [facility] Troponin T.cardiac [Mass/Vol] HS Troponin T,Gen 5 [...] until 8 hours following last biotin administration. [facility] TSH Qn TSH 0.87 MIU/L (0.27-4.20 MIU/L) Performed at [place] [id number] 0.27 - 4.20 MIU/L [facility] Urea nitrogen [Mass/Vol] BUN 17 MG/DL (8-25 MG/DL) 8 - 25 MG/DL [facility] Urea nitrogen/Creatinine [Mass ratio] BUN Creatinine Ratio 14.2 RATIO (8-21 RATIO) 8 - 21 RATIO [facility] - Coagulationon 0 05-11-2023 Fibrin D-dimer [...] IN PATIENTS RECEIVING ANTI-COAGULATION THERAPY. Performed at [place] [address] 0.19 - 0.50 MG/L FEU [facility] - Drug toxicology on 05-11-2023 Amphetamines Screen method >1000 ng/mL Ql (U) Urine Amphetamine NEGATIVE (Reference Range: not available) [facility] Barbiturates Screen method >300 ng/mL Ql (U) Urine Barbiturate NEGATIVE (Reference Range: not available) [facility] Benzodiazepines Screen method >300 ng/mL Ql (U) Urine Benzodiazepine NEGATIVE (Reference Range: not available) [facility] Benzoylecgonine Screen method >300 ng/mL Ql (U) Urine Cocaine Metabolites NEGATIVE (Reference Range: not available) [facility] Cannabinoids Screen method >50 ng/mL Ql (U) THC/Cannabinoids NEGATIVE (Reference Range: not available) [facility] fentaNYL+Norfentanyl Screen Ql (U) Urine Fentanyl NEGATIVE Performed at [place] [id number] (Reference Range: not available) [facility] Methadone Ql (U) Urine Methadone NEGA TIVE (Reference Range: not available) [facility] Opiates Screen method >300 ng/mL Ql (U) Urine Opiate NEGATIVE (Reference Range: not available) [facility] oxyCODONE Ql (U) Urine Oxycodone NEGA TIVE (Reference Range: not available) [facility] Phencyclidine Screen method >25 ng/mL Ql (U) Urine PCP NEGATIVE (Reference Range: not available) [facility] Ethanol [Mass/Vol] Alcohol <0.010 Performed at [place] [id number] GM/DL (0-0.010 GM/DL) 0 - 0.010 GM/DL [facility] [place] Laboratory - Hematology and Cell countson 05-11-2023 Hemoglobin Ql (U) Blood NEGATIVE (NEG ) [facility] Basophils (Bld) [#/Vol] Abs Baso 0.01 K/UL (0.00-0.22 K/UL) 0.00 - 0.22 K/UL [facility] Basophils/100 WBC (Bld) Basophil 0.30 % (0-1 %) 0 - 1 % [facility] Differential cell count method Nom (Bld) Diff Type AUTO DIFF (Reference Range: not available) [facility] Eosinophils (Bld) [#/Vol] Abs Eos 0.09 K/UL (0-0.45 K/UL) 0 - 0.45 K/UL [facility] Eosinophils/100 WBC (Bld) Eosinophil 2.70 % (0-3 %) 0 - 3 % [facility] [place] Erythrocyte distribution width (RBC) [Entitic vol] RDW SD 39.0 FL (37.0-54.0 FL) 37.0 - 54.0 FL [facility] Erythrocyte distribution width (RBC) [Ratio] RDW CV 12.5 % (11.7-15.0 %) 11.7 - 15.0 % [facility] [place] Hematocrit (Bld) [Volume fraction] HCT 39.4 % L (41-50 %) Low 41 - 50 % [facility] [place] Hemoglobin (Bld) [Mass/Vol] HGB 13.4 GM/DL L (13.5-16.5 GM/DL) Low 13.5 - 16.5 GM/DL [facility] [place] Immature granulocytes (Bld) [#/Vol] Abs Imm Neut 0.01 K/UL (0.0-0.1 K/UL) 0.0 - 0.1 K/UL [facility] Lymphocytes (Bld) [#/Vol] Abs Lymph 0.99 K/UL L (1.2-3.2 K/UL) Low 1.2 - 3.2 K/UL [facility] Lymphocytes/100 WBC (Bld) Lymphocyte 29.50 % (20-40 %) 20 - 40 % [facility] MCH (RBC) [Entitic mass] MCH 29.5 PG (26-34 PG) 26 - 34 PG [facility] MCHC (RBC) [Mass/Vol] MCHC 34.0 % (31-37 %) 31 - 37 % [facility] MCV (RBC) [Entitic vol] MCV 86.8 FL (80-100 FL) 80 - 100 FL [facility] Monocytes (Bld) [#/Vol] Abs [place] 0.26 K/UL (0-0.8 K/UL) 0 - 0.8 K/UL [facility] Monocytes/100 WBC (Bld) Monocyte 7.70 % (0-8 %) 0 - 8 % [facility] Neutrophils (Bld) [#/Vol] Abs.Neut.Calculated 2.00 K/UL (Reference Range: not available) Performed at [address] [address] [facility] Neutrophils (Bld) [#/Vol] Abs Neut 2.00 K/UL (1.8-7.7 K/UL) 1.8 - 7.7 K/UL [facility] Neutrophils.immature/ 100 WBC (Bld) Immature Neut % 0.30 % (0.0-1.0 %) 0.0 - 1.0 % [facility] Nucleated RBC/100 WBC (Bld) [Ratio] NRBCs 0 /100 WBC (0 /100 WBC) [facility] Platelet mean volume (Bld) [Entitic vol] MPV 11.1 CU (7.0-12.6 CU) 7.0 - 12.6 CU [facility] Platelets (Bld) [#/Vol] PLT 133 K/UL L (150-450 K/UL) SAMPLE INTEGRITY CHECKED CONSISTENT WITH PERIPHERAL SMEAR RESULT CHECKED Low 150 - 450 K/UL [facility] RBC (Bld) [#/Vol] RBC 4.54 M/UL (4.5-5 .5 M/UL) 4.5 - 5.5 M/UL [facility] Segmented neutrophils/100 WBC (Bld) Granulocyte 59.50 % (50-70 %) 50 - 70 % [facility] WBC (Bld) [#/Vol] WBC 3.2 K/UL L (4.5- 11.0 K/UL) Low 4.5 - 11.0 K/UL [facility] Laboratory - Specimen inform ationon 05-11-2023 Clarity (U) Urine Clarity CLEAR (Reference Range: not available) [facility] [place] Color (U) Urin color PALE YELL OW (Reference Range: not available) [facility] - Urinalysison Bacteria Auto Ql (U) Bacteria NEGATIVE (Reference Range: not available) [facility] Epithelial cells.squamous Auto Ql (U) Urine squamous epi NONE SEEN /HPF (Reference Range: not available) [facility] Glucose Auto test strip (U) [Mass/Vol] Gluc NEGATIVE mg/dL (NEG mg/dL) [facility] Hemoglobin Auto test strip Ql (U) RBC NONE SEEN /HPF (0-3 /HPF) 0 - 3 /HPF [facility] Hyaline casts Auto Ql (U) Urine hyaline cast NONE SEEN /LPF (Reference Range: not available) [facility] Ketones Auto test strip Ql (U) Urine Ketone NEGATIVE (NEG ) [facility] Leukocyte esterase Auto test strip Ql (U) Leuk SMALL A (NEG ) Abnormal [facility] Nitrite Auto test strip Ql (U) Nit NEGATIVE (NEG ) [facility] Protein (U) [Mass/Vol] Prot NEGATIVE mg/dL (NEG mg/dL) [facility] WBC Auto (Urine sed) [#/Area] WBC 3 /HPF (0-3 /HPF) 0 - 3 /HPF [facility] Lipaseon 05-11-2023 Lipase [Catalytic activity/Vol] 29 U/L 16 - 63 U/L [facility] Comment on above: Performed at [place] [address] MAGNESIUMon 05-11-2023 Magnesium [Mass/Vol] 1.9 mg/dL Normal 1.6-3.1 [facility] Comment on above: Result Comment: Perf ormed at [address] [address] Performed By: #### M G #### Main Laboratory [address] [address] Magnesiumon 05-11-2023 Magnesium [Mass/Vol] 1.9 mg/dL [facility] Comment on above: Performed at [place] [address] [place] [address] Natriuretic peptide.B prohor fabby N-Terminal [Mass/Vol]on 05-11-2023 [facility] No Panel Informationon 05-11 HS Troponin T Delta 1 (0-4 ) Performed at [address] [address] 0 - 4 [facility] XR Chest 2 Views (PA and lat) (Reference Range: not available) *FINAL Date of Service: 05/11/2023 15:46 Adm #: [id number] Reading Dr:TARAN PINA Signoff Dr: TARAN PINA PROCEDURE: CHEST 2 VIEW - WXR 0020 REASON FOR EXAM: Palpitations RESULT: Patient Name: HOSEA ALVAREZ STUDY: CHEST 2 VIEW 05/11/2023 3:46 pm INDICATION: Palpitations COMPARISON: 01/29/2023 ACCESSION NUMBER(S): [id number] ORDERING CLINICIAN: THALIA ROBERTO TECHNIQUE: Two views chest FINDINGS: Cardiomediastinal silhouette is mildly enlarged. Aorta is tortuous. No infiltrate or effusion identified. Mild multilevel anterior osteophyte formation midthoracic spine. No compression deformity demonstrated. IMPRESSION: No acute cardiopulmonary process. Dictation workstation: [id number] Original Interpreting Physician: TARAN PINA MD Original Transcribed by/Date: MMODAL May 11 2023 3:18P Original Electronically Signed by/Date: TARAN PINA MD May 11 2023 3:59P Addendum Interpreting Physician: Addendum Transcribed by/Date: NO ADDENDUM Addendum Electronically Signed by/Date: [facility] Microscopic AUTOMATI C MICROSCOPIC URINES (Reference Range: not available) [facility] Reflex to Urine Cult ure CULTURE BEING ORDERED BASED ON LEUKOCYTE ESTERASE Performed at [address] [address] (Reference Range: not available) [facility] HS Troponin T Delta No previous result Performed at [address] [address] (0-4 ) 0 - 4 [facility] PRO-BNPon 05-11-2023 Natriuretic peptide B (Bld) [Mass/Vol] 36 pg/mL Normal 0-138 [facility] Comment on above: Result Comment: LESS THAN RESULT CHECKED Reference ranges are based on clinical submission data. These ranges represent the 95th percentile of normal cut-off points. As NT pro-BNP values approach 1000 pg/ml, clinical symptoms are more likely associated with CHF. Performed at [place] [address] Performed By: #### P BNP #### [facility] [place] [address] TSHon 05-11-2023 TSH 0.87 MIU/L Normal 0.27-4.20 [facility] Comment on above: Result Comment: Perf ormed at [place] [address] Performed By: #### E JOHN #### [place] [address] TSH with reflex to Free T4 i f abnormalon 05-11-2023 TSH Qn 0.87 m[IU]/L [facility] Comment on above: Performed at [address] UA-REFLEX TO CULTUREon 05-11 BACT Negative Normal [facility] Comment on above: Performed By: #### U ACUL #### [facility] [address] [address] RBC NONE SEEN Normal 0-3 [facility] Comment on above: Performed By: #### U ACUL #### [facility] [place] [address] Urinalysis dipstick W Reflex Microscopic panel (U) AUTOMATIC MICROSCOPIC URINES Normal [facility] Comment on above: Performed By: #### U ACUL #### [facility] [address] [address] URINE HYALINE CAST NONE SEEN Normal [facility] Comment on above: Performed By: #### U ACUL #### [facility] [address] [address] URINE SQUAMOUS EPI NONE SEEN Normal [facility] Comment on above: Performed By: #### U ACUL #### [facility] [address] [place] [address] WBC 3 /HPF Normal 0-3 [facility] Comment on above: Performed By: #### U ACUL #### [facility] [address] [address] Bacteria identified Cx Nom (U) [facility] Comment on above: Result Comment: CULT URE BEING ORDERED BASED ON LEUKOCYTE ESTERASE Performed at [address] [place] [address] Performed By: #### U ACUL #### [facility] [address] [place] [address] BILI Negative Normal NEG [facility] Comment on above: Performed By: #### U ACUL #### [facility] [address] [place] [address] Clarity (U) CLEAR [facility] Comment on above: Performed By: #### U ACUL #### [facility] [address] [place] [address], [place] [address] Color (U) PALE YELLOW [facility] Comment on above: Performed By: #### U ACUL #### [facility] [address] [place] [address] GLUC Negative Normal NEG [facility] Comment on above: Performed By: #### U ACUL #### [facility] [address] [place] [address] Hemoglobin Ql (U) Negative Normal NEG [facility] Comment on above: Performed By: #### U ACUL #### [facility] [address] [place] [address] KET Negative Normal NEG [facility] Comment on above: Performed By: #### U ACUL #### [facility] [address] [place] [address] LEUK SMALL Abnormal NEG [facility] Comment on above: Performed By: #### U ACUL #### [facility] [address] [place] [address] NIT Negative Normal NEG [facility] Comment on above: Performed By: #### U ACUL #### [facility] [address] [address] pH (U) 5.5 [pH] Normal 4.6-8.0 [facility] Comment on above: Performed By: #### U ACUL #### [facility] [address] [place] [address] PROT Negative [facility] Comment on above: Performed By: #### U ACUL #### [facility] [address] [place] [address] SP GRAV,URINE 1.020 Normal 1.005-1.030 [facility] Comment on above: Performed By: #### U ACUL #### [facility] [address] [place] [address] URO NORMAL Normal 0-1.0 [facility] Comment on above: Performed By: #### U ACUL #### [facility] [address] [place] [address] URINE DRUG SCREENon 05-11-20 23 AMPHETAMINE/ECSTASY Negative [facility] Comment on above: Performed By: #### E JOHN #### [facility] [address] [place] [address] BARBITURATE Negative [facility] Comment on above: Performed By: #### E JOHN #### [facility] [address] [place] [address] BENZODIAZEPINE Negative [facility] Comment on above: Performed By: #### E JOHN #### [facility] [address] [place] [address] COCAINE METABOLITES Negative [facility] Comment on above: Performed By: #### E JOHN #### [facility] [address] [place] [address] FENTANYL [facility] Comment on above: Result Comment: NEGA TIVE Performed at [facility] [address] [place] [address] Performed By: #### E JOHN #### [facility] [address] [place] [address] METHADONE Negative [facility] Comment on above: Performed By: #### E JOHN #### [facility] [address] [place] [address] OPIATE Negative [facility] Comment on above: Performed By: #### E JOHN #### [facility] [address] [place] [address] OXYCODONE Negative [facility] Comment on above: Performed By: #### E JOHN #### [facility] [address] [address] PCP Negative [facility] Comment on above: Performed By: #### E JOHN #### Main Laboratory [address] [address] THC/CANNABINOIDS Negative [facility] Comment on above: Performed By: #### E JOHN #### [facility] [address] [address] COMMENT [facility] Comment on above: Result Comment: [...] ng/ml Performed By: #### E JOHN #### [facility] [address] [address] Urinalysis complete W Reflex Culture panel (U)on 05-11-2023 Bacteria Auto Ql (U) Negative [facility] Bacteria identified Cx Nom (U) CULTURE BEING ORDERED BASED ON LEUKOCYTE ESTERASE Performed at [address] [address] [facility] Bilirubin Ql (U) Negative NEG [facility] Clarity (U) CLEAR [facility] Color (U) PALE YELLOW [facility] Epithelial cells.squamous Auto Ql (U) NONE SEEN /HPF [facility] Glucose Auto test strip (U) [Mass/Vol] Negative NEG mg/dL [facility] Hemoglobin Auto test strip Ql (U) NONE SEEN [facility] Hemoglobin Ql (U) Negative NEG [facility] Hyaline casts Auto Ql (U) NONE SEEN /LPF [facility] Interpretation and review of laboratory results Abnormal [facility] Ketones Auto test strip Ql (U) Negative NEG [facility] Leukocyte esterase Auto test strip Ql (U) SMALL Abnormal NEG [facility] Nitrite Auto test strip Ql (U) Negative NEG [facility] pH (U) 5.5 [pH] 4.6 - 8.0 [facility] Protein (U) [Mass/Vol] Negative NEG mg/dL [facility] Specific gravity (U) [Rel density] 1.020 1.005 - 1.030 [facility] Urinalysis dipstick W Reflex Microscopic panel (U) AUTOMATIC MICROSCOPIC URINES [facility]ilinogen [facility]) [facility] Auto (Urine sed) [#/Area] 3 [facility] XR Chest 2 Viewson 3 Taran Pina MD - 06/05/2023 PROCEDURE: CHEST 2 VIEW - WXR 0020 REASON FOR EXAM: Palpitations RESULT: Patient Name: HOSEA ALVAREZ STUDY: CHEST 2 VIEW 05/11/2023 3:46 pm INDICATION: Palpitations COMPARISON: 01/29/2023 ACCESSION NUMBER(S): [id number] ORDERING CLINICIAN: THALIA ROBERTO TECHNIQUE: Two views chest FINDINGS: Cardiomediastinal silhouette is mildly enlarged. Aorta is tortuous. No infiltrate or effusion identified. Mild multilevel anterior osteophyte formation midthoracic spine. No compression deformity demonstrated. IMPRESSION: No acute cardiopulmonary process. Dictation workstation: [id number] Original Interpreting Physician: TARAN PINA MD Original Transcribed by/Date: MMODAL May 11 2023 3:18P Original Electronically Signed by/Date: TARAN PINA MD May 11 2023 3:59P Addendum Interpreting Physician: Addendum Transcribed by/Date: NO ADDENDUM Addendum Electronically Signed by/Date: [facility] Work Phone: Radiology Study observation (narrative) [facility] Work Phone: XR Chest 2 ViewsOrdered By: Taran Pina on 05-11-2023 [facility] Work Phone: Activated partial thrombopla stin time (aPTT) in platelet poor plasma by coagulation aOrdered By: Severino Singh on 05-05-2023 aPTT Coag (PPP) [Time] 29.8 s 25.1-36.5 [facility] Alanine aminotransferase [En zymatic activity/volume] in Serum or PlasmaOrdered By: Bozena Shaw on 05-05-2023 ALT [Catalytic activity/Vol] 21 U/L [facility] Alanine aminotransferase [En zymatic activity/volume] in Serum or PlasmaOrdered By: Severino Singh on 05-05-2023 ALT [Catalytic activity/Vol] 25 U/L [facility] Albumin [Mass/volume] in Ser um or Plasma by Bromocresol green (BCG) dye binding methoOrdered By: Bozena Shaw on 05-05-2023 Albumin BCG dye [Mass/Vol] 4.1 g/dL 3.5-5.7 [facility] Albumin [Mass/volume] in Ser um or Plasma by Bromocresol green (BCG) dye binding methoOrdered By: Severino Singh on 05-05-2023 Albumin BCG dye [Mass/Vol] 4.6 g/dL 3.5-5.7 [facility] Alkaline phosphatase [Enzyma tic activity/volume] in Serum or PlasmaOrdered By: Bozena Shaw on 05-05-2023 ALP [Catalytic activity/Vol] 50 U/L 34-104 [facility] Alkaline phosphatase [Enzyma tic activity/volume] in Serum or PlasmaOrdered By: Severino Singh on 05-05-2023 ALP [Catalytic activity/Vol] 62 U/L 34-104 [facility] Amphetamine Screen Ql (U)Ord ered By: Bozena Shaw on 05-05-2023 Amphetamines Ql (U) Negative Negative [facility] Aspartate aminotransferase [ Enzymatic activity/volume] in Serum or PlasmaOrdered By: Bozena Shaw on 05-05-2023 AST [Catalytic activity/Vol] 17 U/L 1339 [facility] Aspartate aminotransferase [ Enzymatic activity/volume] in Serum or PlasmaOrdered By: Seevrino Singh on 05-05-2023 AST [Catalytic activity/Vol] 21 U/L [facility] Automated erythrocytes count in urine sediment (number/area)Ordered By: Severino Singh on 05-05-2023 RBC Auto (Urine sed) [#/Area] 1-2 [HPF] 0-4 [facility] Automated leukocytes count i n urine sediment (number/area)Ordered By: Severino Singh on 05-05-2023 WBC Auto (Urine sed) [#/Area] 1-2 [HPF] 0-4 [facility] Barbiturates [Presence] in U rine by Screen methodOrdered By: Bozena Shaw on 05-05-2023 Barbiturates Screen Ql (U) Negative Negative [facility] Basophils Auto (Bld) [#/Vol] Ordered By: Bozena Shaw on 05-05-2023 Basophils (Bld) [#/Vol] 0.0 10*3/uL 0.0-0.2 [facility] Basophils Auto (Bld) [#/Vol] Ordered By: Severino Singh on 05-05-2023 Basophils (Bld) [#/Vol] 0.0 10*3/uL 0.0-0.2 [facility] Basophils/100 WBC Auto (Bld) Ordered By: Bozena Shaw on 05-05-2023 Basophils/100 WBC (Bld) 0.3 % . [facility] Basophils/100 WBC Auto (Bld) Ordered By: Severino Singh on 05-05-2023 Basophils/100 WBC (Bld) 0.4 % . [facility] Benzodiazepines Screen Ql (U )Ordered By: Bozena Shaw on 05-05-2023 Benzodiazepines Ql (U) Negative Negative [facility] Benzoylecgonine [Presence] i n Urine by Screen methodOrdered By: Bozena Shaw on 05-05-2023 Benzoylecgonine Screen Ql (U) Negative Negative [facility] Bilirubin Test strip Ql (U)O rdered By: Severino Singh on 05-05-2023 Bilirubin Ql (U) Negative Negative [facility] Bilirubin.direct [Mass/volum e] in Serum or PlasmaOrdered By: Severino Singh on 05-05-2023 Bilirubin.direct [Mass/Vol] 0.00 mg/dL 0.03-0.18 [facility] Comment on above: If the DBIL is less than 0.1, IBIL is not able to becalculated. Bilirubin.total [Mass/volume ] in Serum or PlasmaOrdered By: Bozena Shaw on 05-05-2023 Bilirubin [Mass/Vol] 0.4 mg/dL 0.3-1.0 [facility] Bilirubin.total [Mass/volume ] in Serum or PlasmaOrdered By: Severino Singh on 05-05-2023 Bilirubin [Mass/Vol] 0.3 mg/dL 0.3-1.0 [facility] Calcium [Mass/volume] in Ser um or PlasmaOrdered By: Bozena Shaw on 05-05-2023 Calcium [Mass/Vol] 8.3 mg/dL 8.6-10.3 [facility] Calcium [Mass/volume] in Ser um or PlasmaOrdered By: Severino Singh on 05-05-2023 Calcium [Mass/Vol] 9.2 mg/dL 8.6-10.3 [facility] Cannabinoids [Presence] in U rine by Screen methodOrdered By: Bozena Shaw on 05-05-2023 Cannabinoids Screen Ql (U) Negative Negative [facility] Comment on above: These are unconfirme d results and should not be used for legal purposes. Drug Cut-Off Concentration: AMPH 1000 ng/mL CIELO 200 ng/mL KAYA 200 ng/mL COCM 300 ng/mL OP 300 ng/mL PCP 25 ng/mL THC 20 ng/mL Carbon dioxide, total [Moles /volume] in Serum or PlasmaOrdered By: Bozena Shaw on 05-05-2023 CO2 [Moles/Vol] 24.3 mmol/L 21.0-31.0 [facility] Carbon dioxide, total [Moles /volume] in Serum or PlasmaOrdered By: Severnio Singh on 05-05-2023 CO2 [Moles/Vol] 23.8 mmol/L 21.0-31.0 [facility] Chloride [Moles/volume] in S karolyn or PlasmaOrdered By: Bozena Shaw on 05-05-2023 Chloride [Moles/Vol] 103 mmol/L 98-107 [facility] Chloride [Moles/volume] in S karolyn or PlasmaOrdered By: Severino Snigh on 05-05-2023 Chloride [Moles/Vol] 103 mmol/L 98-107 [facility] Color Auto (U)Ordered By: Wilfredo Singh on 05-05-2023 Color (U) Yellow Yellow [facility] Creatinine [Mass/volume] in Serum or PlasmaOrdered By: Bozena Shaw on 05-05-2023 Creatinine [Mass/Vol] 1.02 mg/dL 0.70-1.30 [facility] Creatinine [Mass/volume] in Serum or PlasmaOrdered By: Severino Singh on 05-05-2023 Creatinine [Mass/Vol] 1.00 mg/dL 0.70-1.30 [facility] Eosinophils Auto (Bld) [#/Vo l]Ordered By: Bozena Shaw on 05-05-2023 Eosinophils (Bld) [#/Vol] 0.0 10*3/uL 0.0-0.45 [facility] Eosinophils Auto (Bld) [#/Vo l]Ordered By: Severino Singh on 05-05-2023 Eosinophils (Bld) [#/Vol] 0.0 10*3/uL 0.0-0.45 [facility] Eosinophils/100 WBC Auto (Bl d)Ordered By: Bozena Shaw on 05-05-2023 Eosinophils/100 WBC (Bld) 0.7 % . [facility] Eosinophils/100 WBC Auto (Bl d)Ordered By: Severino Singh on 05-05-2023 Eosinophils/100 WBC (Bld) 1.2 % . [facility] Erythrocyte distribution wid th Auto (RBC) [Ratio]Ordered By: Bozena Shaw on 05-05-2023 Erythrocyte distribution width (RBC) [Ratio] 13.2 % 12.0-14.8 [facility] Erythrocyte distribution wid th Auto (RBC) [Ratio]Ordered By: Severino Singh on 05-05-2023 Erythrocyte distribution width (RBC) [Ratio] 12.8 % 12.0-14.8 [facility] Ethanol [Mass/volume] in Ser um or PlasmaOrdered By: Bozena Shaw on 05-05-2023 Ethanol [Mass/Vol] mg/dL [facility] Ethanol [Mass/Vol] TNP [facility] Comment on above: Test not performed Globulin Calc (S) [Mass/Vol] Ordered By: Bozena Shaw on 05-05-2023 Globulin (S) [Mass/Vol] 2.5 g/dL [facility] Globulin Calc (S) [Mass/Vol] Ordered By: Severino Singh on 05-05-2023 Globulin (S) [Mass/Vol] 3.1 g/dL [facility] Glucose [Mass/volume] in Ser um or PlasmaOrdered By: Bozena Shaw on 05-05-2023 Glucose [Mass/Vol] 132 mg/dL 70-100 [facility] Comment on above: ADA recommended refe rence rangeRandom Glucose Reference Range is dependent on time and content of last meal. Glucose of more than 200 mg/dL in a nonstressed, ambulatory subject supports the diagnosis of Diabetes Mellitus. Glucose [Mass/volume] in Ser um or PlasmaOrdered By: Severino Singh on 05-05-2023 Glucose [Mass/Vol] 94 mg/dL 70-100 [facility] Comment on above: ADA recommended refe rence rangeRandom Glucose Reference Range is dependent on time and content of last meal. Glucose of more than 200 mg/dL in a nonstressed, ambulatory subject supports the diagnosis of Diabetes Mellitus. Hematocrit Auto (Bld) [Volum e fraction]Ordered By: Bozean Shaw on 05-05-2023 Hematocrit (Bld) [Volume fraction] 38.3 % 38.8-50.0 [facility] Hematocrit Auto (Bld) [Volum e fraction]Ordered By: Severino Singh on 05-05-2023 Hematocrit (Bld) [Volume fraction] 43.1 % 38.8-50.0 [facility] Hemoglobin [Mass/volume] in BloodOrdered By: Bozean Shaw on 05-05-2023 Hemoglobin (Bld) [Mass/Vol] 12.9 g/dL 13.0-17.0 [facility] Hemoglobin [Mass/volume] in BloodOrdered By: Severino Singh on 05-05-2023 Hemoglobin (Bld) [Mass/Vol] 14.7 g/dL 13.0-17.0 [facility] Ketones Auto test strip (U) [Mass/Vol]Ordered By: Severino Singh on 05-05-2023 Ketones (U) [Mass/Vol] Trace Negative [facility] - CoagulationOrde red By: Severino Singh on 05-05-2023 PT Coag (PPP) [Time] 10.3 s 9.0-12.9 [facility] - UrinalysisOrder ed By: Severino Singh on 05-05-2023 Hyaline casts LM Ql (Urine sed) 0-8 [LPF] 0-8 [facility] Leukocytes [#/volume] correc sebastián for nucleated erythrocytes in Blood by Automated counOrdered By: Bozena Shaw on 05-05-2023 WBC corrected for nucl RBC Auto (Bld) [#/Vol] 4.8 10*3/uL 4.1-10.5 [facility] Leukocytes [#/volume] correc sebastián for nucleated erythrocytes in Blood by Automated counOrdered By: Severino Singh on 05-05-2023 WBC corrected for nucl RBC Auto (Bld) [#/Vol] 3.3 10*3/uL 4.1-10.5 [facility] Lipase [Enzymatic activity/v olume] in Serum or PlasmaOrdered By: Severino Singh on 05-05-2023 Lipase [Catalytic activity/Vol] 15.0 U/L 11.0-82.0 [facility] Lymphocytes Auto (Bld) [#/Vo l]Ordered By: Bozena Shaw on 05-05-2023 Lymphocytes (Bld) [#/Vol] 0.9 10*3/uL 1.00-4.8 [facility] Lymphocytes Auto (Bld) [#/Vo l]Ordered By: Severino Singh on 05-05-2023 Lymphocytes (Bld) [#/Vol] 0.7 10*3/uL 1.00-4.8 [facility] Lymphocytes/100 WBC Auto (Bl d)Ordered By: Bozena Shaw on 05-05-2023 Lymphocytes/100 WBC (Bld) 19.4 % . [facility] Lymphocytes/100 WBC Auto (Bl d)Ordered By: Severino Singh on 05-05-2023 Lymphocytes/100 WBC (Bld) 20.9 % . [facility] MCH Auto (RBC) [Entitic mass ]Ordered By: Bozena Shaw on 05-05-2023 MCH (RBC) [Entitic mass] 29.0 pg 27.5-35.2 [facility] MCH Auto (RBC) [Entitic mass ]Ordered By: Severino Singh on 05-05-2023 MCH (RBC) [Entitic mass] 29.4 pg 27.5-35.2 [facility] MCHC Auto (RBC) [Mass/Vol]Or dered By: Bozena Shaw on 05-05-2023 MCHC (RBC) [Mass/Vol] 33.7 g/dL 32.5-35.6 [facility] MCHC Auto (RBC) [Mass/Vol]Or dered By: Severino Singh on 05-05-2023 MCHC (RBC) [Mass/Vol] 34.2 g/dL 32.5-35.6 [facility] MCV Auto (RBC) [Entitic vol] Ordered By: Bozena Shaw on 05-05-2023 MCV (RBC) [Entitic vol] 86.0 fL 83.5-101 [facility] MCV Auto (RBC) [Entitic vol] Ordered By: Severino Singh on 05-05-2023 MCV (RBC) [Entitic vol] 85.8 fL 83.5-101 [facility] Monocyte distribution width [Entitic volume] in Blood by AutomatedOrdered By: Bozena Shaw on 05-05-2023 Monocyte distribution width Auto (Bld) [Entitic vol] 16.00 % 0.00-20.00 [facility] Monocyte distribution width [Entitic volume] in Blood by AutomatedOrdered By: Severino Singh on 05-05-2023 Monocyte distribution width Auto (Bld) [Entitic vol] 17.58 % 0.00-20.00 [facility] Monocytes Auto (Bld) [#/Vol] Ordered By: Bozena Shaw on 05-05-2023 Monocytes (Bld) [#/Vol] 0.3 10*3/uL 0.0-0.8 [facility] Monocytes Auto (Bld) [#/Vol] Ordered By: Severino Singh on 05-05-2023 Monocytes (Bld) [#/Vol] 0.3 10*3/uL 0.0-0.8 [facility] Monocytes/100 WBC Auto (Bld) Ordered By: Bozena Gomese on 05-05-2023 Monocytes/100 WBC (Bld) 6.6 % . [facility] Monocytes/100 WBC Auto (Bld) Ordered By: Severino Singh on 05-05-2023 Monocytes/100 WBC (Bld) 7.7 % . [facility] Neutrophils Auto (Bld) [#/Vo l]Ordered By: Bozena Lindsayfle on 05-05-2023 Neutrophils (Bld) [#/Vol] 3.5 10*3/uL 1.8-7.7 [facility] Neutrophils Auto (Bld) [#/Vo l]Ordered By: Severino Singh on 05-05-2023 Neutrophils (Bld) [#/Vol] 2.3 10*3/uL 1.8-7.7 [facility] Neutrophils/100 WBC Auto (Bl d)Ordered By: Bozena Saffle on 05-05-2023 Neutrophils/100 WBC (Bld) 73.0 % . [facility] Neutrophils/100 WBC Auto (Bl d)Ordered By: Severino Singh on 05-05-2023 Neutrophils/100 WBC (Bld) 69.8 % . [facility] Nitrite Test strip Ql (U)Ord ered By: Severino Singh on 05-05-2023 Nitrite Ql (U) Negative Negative [facility] No Panel InformationOrdered By: Bozena Shaw on 05-05-2023 Estimated GFR (CKD-EPI) > 60.0 mL/Min [facility] Creatinine Clearance (Chem 90.37 [facility] No Panel InformationOrdered By: Severino Singh on 05-05-2023 Estimated GFR (CKD-EPI) > 60.0 mL/Min [facility] Creatinine Clearance (Chem 96.66 [facility] Nucleated erythrocytes [Pres ence] in Blood by Automated countOrdered By: Bozena Shaw on 05-05-2023 Nucleated RBC Auto Ql (Bld) 0.0 /100{WBC} 0-0.5 [facility] Nucleated erythrocytes [Pres ence] in Blood by Automated countOrdered By: Severino Singh on 05-05-2023 Nucleated RBC Auto Ql (Bld) 0.2 /100{WBC} 0-0.5 [facility] Opiates [Presence] in Urine by Screen methodOrdered By: Bozena Shaw on 05-05-2023 Opiates Screen Ql (U) Negative Negative [facility] Phencyclidine Screen Ql (U)O rdered By: Bozena Shaw on 05-05-2023 Phencyclidine Ql (U) Negative Negative [facility] Platelet mean volume Auto (B ld) [Entitic vol]Ordered By: Bozena Shaw on 05-05-2023 Platelet mean volume (Bld) [Entitic vol] 8.6 fL 6.6-10.1 [facility] Platelet mean volume Auto (B ld) [Entitic vol]Ordered By: Severino Singh on 05-05-2023 Platelet mean volume (Bld) [Entitic vol] 8.8 fL 6.6-10.1 [facility] Platelet poor plasma interna tional normalized ratio (INR) by coagulation assay (relatOrdered By: Severino Singh on 05-05-2023 INR Coag (PPP) [Relative time] 0.9 {INR} [facility] Comment on above: INR Therapeutic Rang e [...] 05-05-2023 Platelets (Bld) [#/Vol] 135 10*3/uL 150-450 [facility] Platelets Auto (Bld) [#/Vol] Ordered By: Severino Singh on 05-05-2023 Platelets (Bld) [#/Vol] 146 10*3/uL 150-450 [facility] Potassium [Moles/volume] in Serum or PlasmaOrdered By: Bozena Shaw on 05-05-2023 Potassium [Moles/Vol] 3.6 mmol/L 3.5-5.1 [facility] Potassium [Moles/volume] in Serum or PlasmaOrdered By: Severnio Singh on 05-05-2023 Potassium [Moles/Vol] 3.9 mmol/L 3.5-5.1 [facility] Protein Auto test strip (U) [Mass/Vol]Ordered By: Severino Singh on 05-05-2023 Protein (U) [Mass/Vol] Trace mg/dL Negative [facility] Protein [Mass/volume] in Ser um or PlasmaOrdered By: Bozena Shaw on 05-05-2023 Protein [Mass/Vol] 6.6 g/dL 6.4-8.9 [facility] Protein [Mass/volume] in Ser um or PlasmaOrdered By: Severino Singh on 05-05-2023 Protein [Mass/Vol] 7.7 g/dL 6.4-8.9 [facility] RBC Auto (Bld) [#/Vol]Ordere d By: Bozena Shaw on 05-05-2023 RBC (Bld) [#/Vol] 4.46 10*6/uL 3.90-5.60 [facility] RBC Auto (Bld) [#/Vol]Ordere d By: Severino Singh on 05-05-2023 RBC (Bld) [#/Vol] 5.02 10*6/uL 3.90-5.60 [facility] Serum or plasma albumin/glob ulin mass ratioOrdered By: Bozena Shaw on 05-05-2023 Albumin/Globulin [Mass ratio] 1.6 {ratio} [facility] Serum or plasma albumin/glob ulin mass ratioOrdered By: Severino Singh on 05-05-2023 Albumin/Globulin [Mass ratio] 1.5 {ratio} [facility] Serum or plasma anion gap de terminationOrdered By: Bozena Shaw on 05-05-2023 Anion gap [Moles/Vol] 13.3 mmol/L 6.0-15.0 [facility] Serum or plasma anion gap de terminationOrdered By: Severino Singh on 05-05-2023 Anion gap [Moles/Vol] TNP [facility] Comment on above: Test not performed Serum or plasma non-glucuron idated bilirubin measurement (mass/volume)Ordered By: Severino Singh on 05-05-2023 Bilirubin.indirect [Mass/Vol] 0.3 mg/dL [facility] Sodium [Moles/volume] in Ser um or PlasmaOrdered By: Bozena Shaw on 05-05-2023 Sodium [Moles/Vol] 137 mmol/L 136-145 [facility] Sodium [Moles/volume] in Ser um or PlasmaOrdered By: Severino Singh on 05-05-2023 Sodium [Moles/Vol] 140 mmol/L 136-145 [facility] Specific gravity Auto test s trip (U) [Rel density]Ordered By: Severino Singh on 05-05-2023 Specific gravity (U) [Rel density] 1.018 1.001-1.030 [facility] Squamous epithelial cells de tection in urine sediment by light microscopyOrdered By: Severino Singh on 05-05-2023 Epithelial cells.squamous LM Ql (Urine sed) None seen [HPF] 0-2 [facility] Troponin I.cardiac [Mass/vol ume] in Serum or Plasma by Detection limit <= 0.01 ng/Ordered By: Bozena Shaw on 05-05-2023 Troponin I.cardiac DL <= 0.01 ng/mL [Mass/Vol] 5.6 pg/mL 0.0-20.0 [facility] Urea nitrogen [Mass/volume] in Serum or PlasmaOrdered By: Bozena Shaw on 05-05-2023 Urea nitrogen [Mass/Vol] 11 mg/dL 04-16 [facility] Urea nitrogen [Mass/volume] in Serum or PlasmaOrdered By: Severino Singh on 05-05-2023 Urea nitrogen [Mass/Vol] 13 mg/dL 04-16 [facility] Urine bacteria detection by automated methodOrdered By: Severino Singh on 05-05-2023 Bacteria Auto Ql (U) None seen None Seen [facility] Urine clarity by refractomet ry automatedOrdered By: Severino Singh on 05-05-2023 Clarity Refractometry automated (U) Clear Clear [facility] Urine glucose measurement by automated test strip (mass/volume)Ordered By: Severino Singh on 05-05-2023 Glucose Auto test strip (U) [Mass/Vol] Normal mg/dL Normal [facility] Urine hemoglobin detection b y automated test stripOrdered By: Severino Singh on 05-05-2023 Hemoglobin Auto test strip Ql (U) Negative Negative [facility] Urine leukocyte esterase det ection by automated test stripOrdered By: Severino Singh on 05-05-2023 Leukocyte esterase Auto test strip Ql (U) Negative Negative [facility] Urobilinogen Auto test strip (U) [Mass/Vol]Ordered By: Severino Singh on 05-05-2023 Urobilinogen (U) [Mass/Vol] Normal mg/dL Normal [facility] WBC Auto (Bld) [#/Vol]Ordere d By: Bozena Shaw on 05-05-2023 WBC (Bld) [#/Vol] 4.8 10*3/uL 4.1-10.5 [facility] WBC Auto (Bld) [#/Vol]Ordere d By: Severino Singh on 05-05-2023 WBC (Bld) [#/Vol] 3.3 10*3/uL 4.1-10.5 [facility] pH Auto test strip (U)Ordere d By: Severino Samantha on 05-05-2023 pH (U) 5.5 [pH] 5.0-9.0 [facility] XR CHEST (2 VW)on 04-22-2023 XR CHEST [...] Rosi Vega MD 04/22/23 Final result Normal [facility] Basic Metabolic Profon 04-21 Anion gap [Moles/Vol] 15 mmol/L Normal 9-17 [facility] Comment on above: Performed By: #### C DP, BMP, TROPI #### [address] [address] Artificial Inseminator: Maycol Mendiola MD Calcium [Mass/Vol] 9.3 mg/dL Normal 8.6-10.4 [facility] Comment on above: Performed By: #### C DP, BMP, TROPI #### [address] [address] Artificial Inseminator: Maycol Mendiola MD Chloride [Moles/Vol] 103 mmol/L Normal 98-107 [facility] Comment on above: Performed By: #### C DP, BMP, TROPI #### [facility] [employer] [address] [place] [id number] Artificial Inseminator: Maycol Mendiola MD CO2 [Moles/Vol] 20 mmol/L Normal 20-31 [facility] Comment on above: Performed By: #### C DP, BMP, TROPI #### [facility] [address] [place] [address] Artificial Inseminator: Maycol Mendiola MD Creatinine [Mass/Vol] 0.9 mg/dL Normal 0.7-1.2 [facility] Comment on above: Performed By: #### C DP, BMP, TROPI #### [facility] [employer] [address] [place] [address] Artificial Inseminator: Maycol Mendiola MD GFR/1.73 sq M.predicted among non-blacks MDRD (S/P/Bld) [Vol rate/Area] mL/min/{1.73_m2} Normal >60 [facility] Comment on above: Result Comment: These results [...] By: #### C DP, BMP, TROPI #### [facility] [employer] [address] [place] [address] Artificial Inseminator: Maycol Mendiola MD Glucose [Mass/Vol] 120 mg/dL High 70-99 [facility] Comment on above: Performed By: #### C DP, BMP, TROPI #### [facility] [employer] [address] [place] [id number] Artificial Inseminator: Maycol Mendiola MD Potassium [Moles/Vol] 3.9 mmol/L Normal 3.7-5.3 [facility] Comment on above: Performed By: #### C DP, BMP, TROPI #### [facility] [employer] [address] [place] [address] Artificial Inseminator: Maycol Mendiola MD Sodium [Moles/Vol] 138 mmol/L Normal 135-144 [facility] Comment on above: Performed By: #### C DP, BMP, TROPI #### [facility] [address] [place] [address] Artificial Inseminator: Maycol Mendiola MD Urea nitrogen [Mass/Vol] 12 mg/dL Normal 6-20 [facility] Comment on above: Performed By: #### C DP, BMP, TROPI #### [address] [address] Artificial Inseminator: Maycol Mendiola MD CBC with Diffon 04-21-2023 Abs. Basophil <0.03 Normal 0.00-0.20 [facility] Comment on above: Performed By: #### C DP, BMP, TROPI #### [address] [address] Artificial Inseminator: Maycol Mendiola MD Abs.Imm.Granulocyte <0.03 Normal 0.00-0.30 [facility] Comment on above: Performed By: #### C DP, BMP, TROPI #### [address] [address] Artificial Inseminator: Maycol Mendiola MD Abs.Neutrophil (Seg) 2.61 k/uL Normal 1.50-8.10 [facility] Comment on above: Performed By: #### C DP, BMP, TROPI #### [place] [address] Artificial Inseminator: Maycol Mendiola MD Basophils/100 WBC (Bld) 1 % Normal 0-2 [facility] Comment on above: Performed By: #### C DP, BMP, TROPI #### [address] [address] Artificial Inseminator: Maycol Mendiola MD Eosinophils (Bld) [#/Vol] 0.06 10*3/uL Normal 0.00-0.44 [facility] Comment on above: Performed By: #### C DP, BMP, TROPI #### [address] [place] [address] Artificial Inseminator: Maycol Mendiola MD Eosinophils/100 WBC (Bld) 2 % Normal 1-4 [facility] Comment on above: Performed By: #### C DP, BMP, TROPI #### [address] [address] Artificial Inseminator: Maycol Mendiola MD Erythrocyte distribution width (RBC) [Ratio] 12.3 % Normal 11.8-14.4 [facility] Comment on above: Performed By: #### C DP, BMP, TROPI #### [facility] [employer] [address] [place] [address] Artificial Inseminator: Maycol Mendiola MD Hematocrit (Bld) [Volume fraction] 41.3 % Normal 40.7-50.3 [facility] Comment on above: Performed By: #### C DP, BMP, TROPI #### [facility] [employer] [address] [place] [address] Artificial Inseminator: Maycol Mendiola MD Hemoglobin (Bld) [Mass/Vol] 13.8 g/dL Normal 13.0-17.0 [facility] Comment on above: Performed By: #### C DP, BMP, TROPI #### [facility] [employer] [address] [place] [address] Artificial Inseminator: Maycol Mendiola MD Immature granulocytes/100 WBC (Bld) 0 % Normal 0 [facility] Comment on above: Performed By: #### C DP, BMP, TROPI #### [facility] [employer] [address] [place] [address] Artificial Inseminator: Maycol Mendiola MD Lymphocytes (Bld) [#/Vol] 0.92 10*3/uL Low 1.10-3.70 [facility] Comment on above: Performed By: #### C DP, BMP, TROPI #### [facility] [employer] [address] [place] [address] Artificial Inseminator: Maycol Mendiola MD Lymphocytes/100 WBC (Bld) 23 % Low 24-43 [facility] Comment on above: Performed By: #### C DP, BMP, TROPI #### [facility] [address] [place] [address] Artificial Inseminator: Maycol Mendiola MD MCH (RBC) [Entitic mass] 29.6 pg Normal 25.2-33.5 [facility] Comment on above: Performed By: #### C DP, BMP, TROPI #### [facility] [address] [place] [address] Artificial Inseminator: Maycol Mendiola MD MCHC (RBC) [Mass/Vol] 33.4 g/dL Normal 28.4-34.8 [facility] Comment on above: Performed By: #### C DP, BMP, TROPI #### [place] [address] Artificial Inseminator: Maycol Mendiola MD MCV (RBC) [Entitic vol] 88.4 fL Normal 82.6-102.9 [facility] Comment on above: Performed By: #### C DP, BMP, TROPI #### [place] [address] Artificial Inseminator: Maycol Mendiola MD Monocytes (Bld) [#/Vol] 0.36 10*3/uL Normal 0.10-1.20 [facility] Comment on above: Performed By: #### C DP, BMP, TROPI #### [address] [address] Artificial Inseminator: Maycol Mendiola MD Monocytes/100 WBC (Bld) 9 % Normal 3-12 [facility] Comment on above: Performed By: #### C DP, BMP, TROPI #### [address] [address] Artificial Inseminator: Maycol Mendiola MD Neutrophil (Seg) 65 % Normal 36-65 [facility] Comment on above: Performed By: #### C DP, BMP, TROPI #### [facility] [employer] [facility] [place] [address] Artificial Inseminator: Maycol Mendiola MD NRBC Automated 0.0 per 100 WBC Normal 0.0 [facility] Comment on above: Performed By: #### C DP, BMP, TROPI #### [facility] [employer] [address] [place] [address] Artificial Inseminator: Maycol Mendiola MD Platelet mean volume (Bld) [Entitic vol] 11.1 fL Normal 8.1-13.5 [facility] Comment on above: Performed By: #### C DP, BMP, TROPI #### [address] [address] Artificial Inseminator: Maycol Mendiola MD Platelets (Bld) [#/Vol] 141 10*3/uL Normal 138-453 [facility] Comment on above: Performed By: #### C DP, BMP, TROPI #### [address] [address] Artificial Inseminator: Maycol Mendiola MD RBC (Bld) [#/Vol] 4.67 10*6/uL Normal 4.21-5.77 [facility] Comment on above: Performed By: #### C DP, BMP, TROPI #### [facility] [employer] [address] [place] [address] Artificial Inseminator: Maycol Mendiola MD WBC (Bld) [#/Vol] 4.0 10*3/uL Normal 3.5-11.3 [facility] Comment on above: Performed By: #### C DP, BMP, TROPI #### [facility] [employer] [address] [place] [address] Artificial Inseminator: Maycol Mendiola MD Troponinon 04-21-2023 Troponin, High Sens 6 ng/L Normal 0-22 [facility] Comment on above: Result Comment: High Sensitivity Troponin values cannot be compared with other Troponin methodologies. Performed By: #### C DP, BMP, TROPI #### [facility] [employer] [address] [place] [address] Artificial Inseminator: Maycol Mendiola MD Basic Metabolic Profon 04-20 Anion gap [Moles/Vol] 11 mmol/L Normal 9-17 [facility] Comment on above: Performed By: #### C DP, BMP, TROPI #### [facility] [employer] [address] [place] [address] Artificial Inseminator: Maycol Mendiola MD Calcium [Mass/Vol] 9.1 mg/dL Normal 8.6-10.4 [facility] Comment on above: Performed By: #### C DP, BMP, TROPI #### [facility] [employer] [address] [place] [address] Artificial Inseminator: Maycol Mendiola MD Chloride [Moles/Vol] 103 mmol/L Normal 98-107 [facility] Comment on above: Performed By: #### C DP, BMP, TROPI #### [facility] [employer] [address] [place] [address] Artificial Inseminator: Maycol Mendiola MD CO2 [Moles/Vol] 23 mmol/L Normal 20-31 [facility] Comment on above: Performed By: #### C DP, BMP, TROPI #### [facility] [address] [place] [address] Artificial Inseminator: Maycol Mendiola MD Creatinine [Mass/Vol] 0.9 mg/dL Normal 0.7-1.2 [facility] Comment on above: Performed By: #### C DP, BMP, TROPI #### [facility] [employer] [address] [place] [address] Artificial Inseminator: Maycol Mendiola MD GFR/1.73 sq M.predicted among non-blacks MDRD (S/P/Bld) [Vol rate/Area] mL/min/{1.73_m2} Normal >60 [facility] Comment on above: Result Comment: These results [...] By: #### C DP, BMP, TROPI #### [facility] [employer] [address] [place] [address] Artificial Inseminator: Maycol Mendiola MD Glucose [Mass/Vol] 109 mg/dL High 70-99 [facility] Comment on above: Performed By: #### C DP, BMP, TROPI #### [facility] [employer] [address] [place] [address] Artificial Inseminator: Maycol Mendiola MD Potassium [Moles/Vol] 4.1 mmol/L Normal 3.7-5.3 [facility] Comment on above: Performed By: #### C DP, BMP, TROPI #### [facility] [employer] [address] [place] [address] Artificial Inseminator: Maycol Mendiola MD Sodium [Moles/Vol] 137 mmol/L Normal 135-144 [facility] Comment on above: Performed By: #### C DP, BMP, TROPI #### [email or web address] [address] [place] [address] Artificial Inseminator: Maycol Mendiola MD Urea nitrogen [Mass/Vol] 14 mg/dL Normal 6-20 [facility] Comment on above: Performed By: #### C DP, BMP, TROPI #### [facility] [employer] [address] [place] [address] Artificial Inseminator: Maycol Mendiola MD Anion gap [Moles/Vol] 12 mmol/L Normal 9-17 [facility] Comment on above: Performed By: #### C DP, BMP, TROPI #### [place] [address] Artificial Inseminator: Catalino Campbell MD Calcium [Mass/Vol] 9.0 mg/dL Normal 8.6-10.4 [facility] Comment on above: Performed By: #### C DP, BMP, TROPI #### [place] [address] Artificial Inseminator: Catalino Campbell MD Chloride [Moles/Vol] 104 mmol/L Normal 98-107 [facility] Comment on above: Performed By: #### C DP, BMP, TROPI #### [place] [address] Artificial Inseminator: Catalino Campbell MD CO2 [Moles/Vol] 22 mmol/L Normal 20-31 [facility] Comment on above: Performed By: #### C DP, BMP, TROPI #### [place] [address] Artificial Inseminator: Catalino Campbell MD Creatinine [Mass/Vol] 0.9 mg/dL Normal 0.7-1.2 [facility] Comment on above: Performed By: #### C DP, BMP, TROPI #### [place] [address] Artificial Inseminator: Catalino Campbell MD GFR/1.73 sq M.predicted among non-blacks MDRD (S/P/Bld) [Vol rate/Area] mL/min/{1.73_m2} Normal >60 [facility] Comment on above: Result Comment: These results [...] By: #### C CARLENE CHEATHAM, TROPI #### [place] [address] Artificial Inseminator: Catalino Campbell MD Glucose [Mass/Vol] 109 mg/dL High 70-99 [facility] Comment on above: Performed By: #### C CARLENE CHEATHAM, TROPI #### [place] [address] Artificial Inseminator: Catalino Campbell MD Potassium [Moles/Vol] 4.2 mmol/L Normal 3.7-5.3 [facility] Comment on above: Performed By: #### C CARLENE CHEATHAM, TROPI #### [place] [address] Artificial Inseminator: Catalino Campbell MD Sodium [Moles/Vol] 138 mmol/L Normal 135-144 [facility] Comment on above: Performed By: #### C CARLENE CHEATHAM, TROPI #### [place] [address] Artificial Inseminator: Catalino Campbell MD Urea nitrogen [Mass/Vol] 13 mg/dL Normal 6-20 [facility] Comment on above: Performed By: #### C CARLENE CHEATHAM, TROPI #### [place] [address] Artificial Inseminator: Catalino Campbell MD CBC with Diffon 04-20-2023 Abs. Basophil 0.00 k/uL Normal 0.0-0.2 [facility] Comment on above: Performed By: #### C DP, BMP, TROPI #### [place] [address] Artificial Inseminator: Catalino Campbell MD Abs.Neutrophil (Seg) 2.50 k/uL Normal 1.8-7.7 [facility] Comment on above: Performed By: #### C DP, BMP, TROPI #### [place] [address] Artificial Inseminator: Catalino Campbell MD Basophils/100 WBC (Bld) 0 % Normal 0-2 [facility] Comment on above: Performed By: #### C DP, BMP, TROPI #### [place] [address] Artificial Inseminator: Catalino Campbell MD Eosinophils (Bld) [#/Vol] 0.10 10*3/uL Normal 0.0-0.4 [facility] Comment on above: Performed By: #### C DP, BMP, TROPI #### [place] [address] Artificial Inseminator: Catalino Campbell MD Eosinophils/100 WBC (Bld) 1 % Normal 1-4 [facility] Comment on above: Performed By: #### C DP, BMP, TROPI #### [place] [address] Artificial Inseminator: Catalino Campbell MD Erythrocyte distribution width (RBC) [Ratio] 13.4 % Normal 12.5-15.4 [facility] Comment on above: Performed By: #### C DP, BMP, TROPI #### [place] [address] Artificial Inseminator: Catalino Campbell MD Hematocrit (Bld) [Volume fraction] 39.6 % Low 41-53 [facility] Comment on above: Performed By: #### C DP, BMP, TROPI #### [place] [id number] Artificial Inseminator: Catalino Campbell MD Hemoglobin (Bld) [Mass/Vol] 13.4 g/dL Low 13.5-17.5 [facility] Comment on above: Performed By: #### C DP, BMP, TROPI #### [place] [address] Artificial Inseminator: Catalino Campbell MD Lymphocytes (Bld) [#/Vol] 0.70 10*3/uL Low 1.0-4.8 [facility] Comment on above: Performed By: #### C DP, BMP, TROPI #### [place] [address] Artificial Inseminator: Catalino Campbell MD Lymphocytes/100 WBC (Bld) 20 % Low 24-44 [facility] Comment on above: Performed By: #### C DP, BMP, TROPI #### [place] [address] Artificial Inseminator: Catalino Campbell MD MCH (RBC) [Entitic mass] 29.5 pg Normal 26-34 [facility] Comment on above: Performed By: #### C DP, BMP, TROPI #### [place] [id number] Artificial Inseminator: Catalino Campbell MD MCHC (RBC) [Mass/Vol] 33.9 g/dL Normal 31-37 [facility] Comment on above: Performed By: #### C DP, BMP, TROPI #### [place] [address] Artificial Inseminator: Catalino Campbell MD MCV (RBC) [Entitic vol] 86.9 fL Normal 80-100 [facility] Comment on above: Performed By: #### C DP, BMP, TROPI #### [place] [address] Artificial Inseminator: Catalino Campbell MD Monocytes (Bld) [#/Vol] 0.30 10*3/uL Normal 0.1-1.2 [facility] Comment on above: Performed By: #### C DP, BMP, TROPI #### [place] [address] Artificial Inseminator: Catalino Campbell MD Monocytes/100 WBC (Bld) 10 % Normal 2-11 [facility] Comment on above: Performed By: #### C DP, BMP, TROPI #### [place] [address] Artificial Inseminator: Catalino Campbell MD Neutrophil (Seg) 69 % High 36-66 [facility] Comment on above: Performed By: #### C DP, BMP, TROPI #### [place] [address] Artificial Inseminator: Catalino Campbell MD Platelet mean volume (Bld) [Entitic vol] 8.6 fL Normal 6.0-12.0 [facility] Comment on above: Performed By: #### C DP, BMP, TROPI #### [place] [address] Artificial Inseminator: Catalino Campbell MD Platelets (Bld) [#/Vol] 136 10*3/uL Low 140-450 [facility] Comment on above: Performed By: #### C DP, BMP, TROPI #### [place] [address] Artificial Inseminator: Catalino Campbell MD RBC (Bld) [#/Vol] 4.56 10*6/uL Normal 4.5-5.9 [facility] Comment on above: Performed By: #### C DP, BMP, TROPI #### [place] [address] Artificial Inseminator: Catalino Campbell MD WBC (Bld) [#/Vol] 3.6 10*3/uL Normal 3.5-11.0 [facility] Comment on above: Performed By: #### C DP, BMP, TROPI #### [place] [address] Artificial Inseminator: Catalino Campbell MD Abs. Basophil 0.00 k/uL Normal 0.0-0.2 [facility] Comment on above: Performed By: #### C DP, BMP, TROPI #### [place] [address] Artificial Inseminator: Catalino Campbell MD Abs.Neutrophil (Seg) 2.40 k/uL Normal 1.8-7.7 [facility] Comment on above: Performed By: #### C DP, BMP, TROPI #### [place] [address] Artificial Inseminator: Catalino Campbell MD Basophils/100 WBC (Bld) 0 % Normal 0-2 [facility] Comment on above: Performed By: #### C DP, BMP, TROPI #### [place] [address] Artificial Inseminator: Catalino Campbell MD Eosinophils (Bld) [#/Vol] 0.10 10*3/uL Normal 0.0-0.4 [facility] Comment on above: Performed By: #### C DP, BMP, TROPI #### [place] [address] Artificial Inseminator: Catalino Campbell MD Eosinophils/100 WBC (Bld) 2 % Normal 1-4 [facility] Comment on above: Performed By: #### C DP, BMP, TROPI #### [place] [address] Artificial Inseminator: Catalino Campbell MD Erythrocyte distribution width (RBC) [Ratio] 13.4 % Normal 12.5-15.4 [facility] Comment on above: Performed By: #### C DP, BMP, TROPI #### [place] [address] Artificial Inseminator: Catalino Campbell MD Hematocrit (Bld) [Volume fraction] 43.1 % Normal 41-53 [facility] Comment on above: Performed By: #### C DP, BMP, TROPI #### [place] [address] Artificial Inseminator: Catalino Campbell MD Hemoglobin (Bld) [Mass/Vol] 14.5 g/dL Normal 13.5-17.5 [facility] Comment on above: Performed By: #### C DP, BMP, TROPI #### [place] [address] Artificial Inseminator: Catalino Campbell MD Lymphocytes (Bld) [#/Vol] 0.70 10*3/uL Low 1.0-4.8 [facility] Comment on above: Performed By: #### C DP, BMP, TROPI #### [place] [address] Artificial Inseminator: Catalino Campbell MD Lymphocytes/100 WBC (Bld) 20 % Low 24-44 [facility] Comment on above: Performed By: #### C DP, BMP, TROPI #### [place] [address] Artificial Inseminator: Catalino Campbell MD MCH (RBC) [Entitic mass] 29.6 pg Normal 26-34 [facility] Comment on above: Performed By: #### C DP, BMP, TROPI #### [place] [address] Artificial Inseminator: Catalino Campbell MD MCHC (RBC) [Mass/Vol] 33.8 g/dL Normal 31-37 [facility] Comment on above: Performed By: #### C DP, BMP, TROPI #### [place] [address] Artificial Inseminator: Catalino Campbell MD MCV (RBC) [Entitic vol] 87.5 fL Normal 80-100 [facility] Comment on above: Performed By: #### C DP, BMP, TROPI #### [place] [address] Artificial Inseminator: Catalino Campbell MD Monocytes (Bld) [#/Vol] 0.30 10*3/uL Normal 0.1-1.2 [facility] Comment on above: Performed By: #### C DP, BMP, TROPI #### [place] [address] Artificial Inseminator: Catalino Campbell MD Monocytes/100 WBC (Bld) 8 % Normal 2-11 [facility] Comment on above: Performed By: #### C DP, BMP, TROPI #### [place] [address] Artificial Inseminator: Catalino Campbell MD Neutrophil (Seg) 70 % High 36-66 [facility] Comment on above: Performed By: #### C DP, BMP, TROPI #### [place] [address] Artificial Inseminator: Catalino Campbell MD Platelet mean volume (Bld) [Entitic vol] 8.8 fL Normal 6.0-12.0 [facility] Comment on above: Performed By: #### C DP, BMP, TROPI #### [place] [address] Artificial Inseminator: Catalino Campbell MD Platelets (Bld) [#/Vol] 134 10*3/uL Low 140-450 [facility] Comment on above: Performed By: #### C DP, BMP, TROPI #### [place] [address] Artificial Inseminator: Catalino Campbell MD RBC (Bld) [#/Vol] 4.92 10*6/uL Normal 4.5-5.9 [facility] Comment on above: Performed By: #### C DP, BMP, TROPI #### [place] [address] Artificial Inseminator: Catalino Campbell MD WBC (Bld) [#/Vol] 3.4 10*3/uL Low 3.5-11.0 [facility] Comment on above: Performed By: #### C DP, BMP, TROPI #### [address] [place], [place] [id number] Artificial Inseminator: Catalino Campbell MD Troponinon 04-20-2023 Troponin, High Sens 6 ng/L Normal 0-22 [facility] Comment on above: Result Comment: High Sensitivity Troponin values cannot be compared with other Troponin methodologies. Performed By: #### T ROPI #### [address] [id number] Artificial Inseminator: Catalino Campbell MD Troponin, High Sens 7 ng/L Normal 0-22 [facility] Comment on above: Result Comment: High Sensitivity Troponin values cannot be compared with other Troponin methodologies. Performed By: #### C DP, BMP, TROPI #### [place] [address] [place] [address] Artificial Inseminator: Maycol Mendiola MD Troponin, High Sens 7 ng/L Normal 0-22 [facility] Comment on above: Result Comment: High Sensitivity Troponin values cannot be compared with other Troponin methodologies. Performed By: #### C DP, BMP, TROPI #### [address] [id number] Artificial Inseminator: Catalino Campbell MD XR CHEST PORTABLEon 04-20-20 XR CHEST PORTABLE EXAMINATION: ONE XRAY VIEW OF THE CHEST 04/20/2023 1:14 pm COMPARISON: Chest CT and AP chest from 01/17/2020 HISTORY: ORDERING SYSTEM PROVIDED HISTORY: CP TECHNOLOGIST PROVIDED HISTORY: CP Reason for Exam: Pt states he has blood pressure issues FINDINGS: Mildly enlarged cardiac silhouette, likely increased somewhat as compared to 2020. Mediastinal structures appropriate for slight rotation to the right with some elongation thoracic aorta again noted. Mild probable basilar atelectasis, better seen right base. No consolidation or large pleural effusion. No pneumothorax. Moderate-severe DJD spine IMPRESSION: No acute cardiopulmonary disease. Likely further increased mild cardiomegaly. Interpreted by: Robina Perez MD Signed by: Robina Perez MD 04/20/23 Final result Normal [facility] Alcohol (Ethanol)on 02-05-20 Ethanol [Mass/Vol] 88 mg/dL Normal [facility] Comment on above: Result Comment: Not Detected Basic Metabolic Panelon 01-21 Anion gap [Moles/Vol] 14 mmol/L Normal 7-16 [facility] Calcium [Mass/Vol] 9.0 mg/dL Normal 8.6-10.2 [facility] Chloride [Moles/Vol] 105 mmol/L Normal 98-107 [facility] CO2 [Moles/Vol] 23 mmol/L Normal 22-29 [facility] Creatinine [Mass/Vol] 1.0 mg/dL Normal 0.7-1.2 [facility] GFR Calculated >60 Normal >=60 [facility] Comment on above: Result Comment: Chaim [...] secretion. Glucose [Mass/Vol] 127 mg/dL High 74-99 [facility] Potassium [Moles/Vol] 3.8 mmol/L Normal 3.5-5.0 [facility] Sodium [Moles/Vol] 142 mmol/L Normal 132-146 [facility] Urea nitrogen [Mass/Vol] 16 mg/dL Normal 6-20 [facility] CBC With Platelet and Differ entialon 02-04-2023 Abs Imm Granulocytes 0.02 E9/L Normal [facility] Absolute Basophils 0.01 E9/L Normal 0.00-0.20 [facility] Absolute Eosinophils 0.07 E9/L Normal 0.05-0.50 [facility] Absolute Lymphocytes 1.22 E9/L Low 1.50-4.00 [facility] Monocytes 0.30 E9/L Normal 0.10-0.95 [facility] Absolute Neutrophils 1.90 E9/L Normal 1.80-7.30 [facility] Basophils/100 WBC (Bld) 0.3 % Normal 0.0-2.0 [facility] Eosinophils/100 WBC (Bld) 2.0 % Normal 0.0-6.0 [facility] Hematocrit (Bld) [Volume fraction] 37.9 % Normal 37.0-54.0 [facility] Hemoglobin (Bld) [Mass/Vol] 12.6 g/dL Normal 12.5-16.5 [facility] Imm Granulocytes 0.6 % Normal 0.0-5.0 [facility] Lymphocytes/100 WBC (Bld) 34.7 % Normal 20.0-42.0 [facility] MCH (RBC) [Entitic mass] 29.2 pg Normal 26.0-35.0 [facility] MCHC 33.2 % Normal 32.0-34.5 [facility] MCV (RBC) [Entitic vol] 87.7 fL Normal 80.0-99.9 [facility] Monocytes/100 WBC (Bld) 8.5 % Normal 2.0-12.0 [facility] Neutrophils/100 WBC (Bld) 53.9 % Normal 43.0-80.0 [facility] Platelet Count 134 E9/L Normal 130-450 [facility] Platelet mean volume (Bld) [Entitic vol] 10.6 fL Normal 7.0-12.0 [facility] RBC 4.32 E12/L Normal 3.80-5.80 [facility] RDW 13.0 fL Normal 11.5-15.0 [facility] WBC 3.5 E9/L Low 4.5-11.5 [facility] High Sensitivity Troponin To n 02-04-2023 High Sensitivity Troponin T <6 Normal 0-11 [facility] Comment on above: Result Comment: High Sensitivity Troponin values cannot be compared with other Troponin methodologies. Serum Drug Screenon 02-05-20 TCA Screen Negative Normal Cutoff:300 [facility] Acetaminophen [Mass/Vol] ug/mL Low 10.0-30.0 [facility] Ethanol [Mass/Vol] 216 mg/dL Normal [facility] Comment on above: Result Comment: Not Detected Salicylate <0.3 Normal 0.0-30.0 [facility] XR CHEST PORTABLEon 02-05-20 XR CHEST [...] Kristen Ascencio MD 02/04/23 Final result Normal [facility] Comment on above: Order Comment: Reaso n for exam:->chest pain Basic Metabolic Panelon 01-21 Anion gap [Moles/Vol] 12 mmol/L Normal 7-16 [facility] Calcium [Mass/Vol] 9.2 mg/dL Normal 8.6-10.2 [facility] Chloride [Moles/Vol] 102 mmol/L Normal 98-107 [facility] CO2 [Moles/Vol] 25 mmol/L Normal 22-29 [facility] Creatinine [Mass/Vol] 1.0 mg/dL Normal 0.7-1.2 [facility] GFR Calculated >60 Normal >=60 [facility] Comment on above: Result Comment: Pedrosa atric calculator link [email or web address]://www.kidney.org/professionals/kdoqi/gfr_calculatorped Effective Jun 25, [...] secretion. Glucose [Mass/Vol] 91 mg/dL Normal 74-99 [facility] Potassium [Moles/Vol] 4.3 mmol/L Normal 3.5-5.0 [facility] Comment on above: Result Comment: Spec imen is moderately Hemolyzed. Result may be artificially increased. Sodium [Moles/Vol] 139 mmol/L Normal 132-146 [facility] Urea nitrogen [Mass/Vol] 17 mg/dL Normal 6-20 [facility] Basic metabolic 2000 panelon 02-02-2023 Anion gap [Moles/Vol] 12 mmol/L 7 - 16 mmol/L [facility] [employer] Calcium [Mass/Vol] 9.2 mg/dL 8.6 - 10. 2 mg/dL [facility] [employer] Chloride [Moles/Vol] 102 mmol/L 98 - 10 7 mmol/L [facility] [employer] CO2 [Moles/Vol] 25 mmol/L 22 - 29 mmol/L [facility] Creatinine [Mass/Vol] 1 mg/dL 0.7 - 1.2 mg/dL [facility] [place] GFR/1.73 sq M.predicted among non-blacks MDRD (S/P/Bld) [Vol rate/Area] mL/min/1.73 60 - PINF mL/min/1.73 [facility] [place] Comment on above: Pediatric calculator link [email or web address]://www.kidney.org/professionals/kdoqi/gfr_calculatorped [...] [Mass/Vol] 91 mg/dL 74 - 99 mg/dL [facility] Potassium [Moles/Vol] 4.3 mmol/L 3.5 - 5.0 mmol/L [facility] Comment on above: Specimen is moderate ly Hemolyzed. Result may be artificially increased. Sodium [Moles/Vol] 139 mmol/L 132 - 146 mmol/L [facility] Urea nitrogen [Mass/Vol] 17 mg/dL 6 - 20 mg/dL [facility] CBC With Platelet and Differ entialon 02-02-2023 Abs Imm Granulocytes 0.02 E9/L Normal [facility] Absolute Basophils 0.03 E9/L Normal 0.00-0.20 [facility] Absolute Eosinophils 0.08 E9/L Normal 0.05-0.50 [facility] Absolute Lymphocytes 1.03 E9/L Low 1.50-4.00 [facility] Absolute Monocytes 0.32 E9/L Normal 0.10-0.95 [facility] Absolute Neutrophils 2.82 E9/L Normal 1.80-7.30 [facility] Basophils/100 WBC (Bld) 0.7 % Normal 0.0-2.0 [facility] Eosinophils/100 WBC (Bld) 1.9 % Normal 0.0-6.0 [facility] Hematocrit (Bld) [Volume fraction] 40.0 % Normal 37.0-54.0 [facility] Hemoglobin (Bld) [Mass/Vol] 13.3 g/dL Normal 12.5-16.5 [facility] Imm Granulocytes 0.5 % Normal 0.0-5.0 [facility] Lymphocytes/100 WBC (Bld) 24.0 % Normal 20.0-42.0 [facility] MCH (RBC) [Entitic mass] 29.1 pg Normal 26.0-35.0 [facility] MCHC 33.3 % Normal 32.0-34.5 [facility] MCV (RBC) [Entitic vol] 87.5 fL Normal 80.0-99.9 [facility] Monocytes/100 WBC (Bld) 7.4 % Normal 2.0-12.0 [facility] Neutrophils/100 WBC (Bld) 65.5 % Normal 43.0-80.0 [facility] Platelet Count 147 E9/L Normal 130-450 [facility] Platelet mean volume (Bld) [Entitic vol] 11.2 fL Normal 7.0-12.0 [facility] RBC 4.57 E12/L Normal 3.80-5.80 [facility] RDW 12.8 fL Normal 11.5-15.0 [facility] WBC 4.3 E9/L Low 4.5-11.5 [facility] CBC with Auto Differentialon 02-02-2023 Basophils (Bld) [#/Vol] 0.03 10*3/uL [facility] [employer] [facility] Basophils/100 WBC (Bld) 0.7 % 0.0 - 2.0 % [facility] Eosinophils (Bld) [#/Vol] 0.08 10*3/uL [facility] Eosinophils/100 WBC (Bld) 1.9 % 0.0 - 6.0 % [facility] Erythrocyte distribution width (RBC) [Ratio] 12.8 fL 11.5 - 15.0 fL [facility] Hematocrit (Bld) [Volume fraction] 40.0 % 37.0 - 54.0 % [facility] Hemoglobin (Bld) [Mass/Vol] 13.3 g/dL 12.5 - 16.5 g/dL [facility] Immature granulocytes (Bld) [#/Vol] 0.02 10*3/uL E9/L [facility] Immature granulocytes/100 WBC (Bld) 0.5 % 0.0 - 5.0 % [facility] Interpretation and review of laboratory results Abnormal [facility] Lymphocytes (Bld) [#/Vol] 1.03 10*3/uL Low [facility] Lymphocytes/100 WBC (Bld) 24.0 % 20.0 - 42.0 % [facility] MCH (RBC) [Entitic mass] 29.1 pg 26.0 - 35.0 pg [facility] MCHC (RBC) [Mass/Vol] 33.3 % 32.0 - 34.5 % [facility] MCV (RBC) [Entitic vol] 87.5 fL 80.0 - 99.9 fL [facility] Monocytes (Bld) [#/Vol] 0.32 10*3/uL [facility] Monocytes/100 WBC (Bld) 7.4 % 2.0 - 12.0 % [facility] Neutrophils (Bld) [#/Vol] 2.82 10*3/uL [facility] Platelet mean volume (Bld) [Entitic vol] 11.2 fL 7.0 - 12.0 fL [facility] Platelets (Bld) [#/Vol] 147 10*3/uL [facility] RBC (Bld) [#/Vol] 4.57 10*6/uL [facility] Segmented neutrophils/100 WBC (Bld) 65.5 % 43.0 - 80.0 % [facility] WBC (Bld) [#/Vol] 4.3 10*3/uL Low [facility] High Sensitivity Troponin To n 02-02-2023 High Sensitivity Troponin T <6 Normal 0-11 [facility] Comment on above: Result Comment: High Sensitivity Troponin values cannot be compared with other Troponin methodologies. Prothrombin Timeon INR Coag (PPP) [Relative time] 1.1 {INR} Normal [facility] PT Coag (PPP) [Time] 12.0 s Normal 9.3-12.4 [facility] Protime-INRon 02-02-2023 INR Coag (Bld) [Relative time] 1.1 {INR} [facility] PT Coag (PPP) [Time] 12 s [facility] Troponinon 02-02-2023 Troponin, High Sensitivity ng/L 0 - 11 ng/L [facility] Comment on above: High Sensitivity Tro ponin values cannot be compared with other Troponin methodologies. [facility] Alcohol (Ethanol)on 02-02-20 Ethanol [Mass/Vol] 51 mg/dL Normal [facility] Comment on above: Result Comment: Not Detected Basic Metabolic Panelon 01-21 Anion gap [Moles/Vol] 17 mmol/L High 7-16 [facility] Calcium [Mass/Vol] 8.2 mg/dL Low 8.6-10.2 [facility] Chloride [Moles/Vol] 105 mmol/L Normal 98-107 [facility] CO2 [Moles/Vol] 20 mmol/L Low 22-29 [facility] Creatinine [Mass/Vol] 1.2 mg/dL Normal 0.7-1.2 [facility] GFR Calculated >60 Normal >=60 [facility] Comment on above: Result Comment: Chaim [...] secretion. Glucose [Mass/Vol] 104 mg/dL High 74-99 [facility] Potassium [Moles/Vol] 4.2 mmol/L Normal 3.5-5.0 [facility] Sodium [Moles/Vol] 142 mmol/L Normal 132-146 [facility] Urea nitrogen [Mass/Vol] 16 mg/dL Normal 6-20 [facility] Basic Metabolic Panel Reflex Mgon 02-01-2023 Anion gap [Moles/Vol] 7 mmol/L Normal 7-16 [facility] Calcium [Mass/Vol] 8.9 mg/dL Normal 8.6-10.2 [facility] Chloride [Moles/Vol] 104 mmol/L Normal 98-107 [facility] CO2 [Moles/Vol] 26 mmol/L Normal 22-29 [facility] Creatinine [Mass/Vol] 1.1 mg/dL Normal 0.7-1.2 [facility] GFR Calculated >60 Normal >=60 [facility] Comment on above: Result Comment: Chaim [...] secretion. Glucose [Mass/Vol] 102 mg/dL High 74-99 [facility] Magnesium [Moles/Vol] 4.8 mmol/L Normal 3.5-5.0 [facility] Sodium [Moles/Vol] 137 mmol/L Normal 132-146 [facility] Urea nitrogen [Mass/Vol] 19 mg/dL Normal 6-20 [facility] Basic metabolic 2000 panelon 02-01-2023 Anion gap [Moles/Vol] 7 mmol/L 7 - 16 mmol/L [facility] Calcium [Mass/Vol] 8.9 mg/dL 8.6 - 10. 2 mg/dL [facility] Chloride [Moles/Vol] 104 mmol/L 98 - 10 7 mmol/L [facility] CO2 [Moles/Vol] 26 mmol/L 22 - 29 mmol/L [facility] Creatinine [Mass/Vol] 1.1 mg/dL 0.7 - 1.2 mg/dL [facility] GFR/1.73 sq M.predicted among non-blacks MDRD (S/P/Bld) [Vol rate/Area] mL/min/1.73 60 - PINF mL/min/1.73 [facility] [employer] [facility] Comment on above: Pediatric calculator link [email or web address]://www.kidney.org/professionals/kdoqi/gfr_calculatorped [...] 102 mg/dL High 74 - 99 mg/dL [facility]ENTERKidaro [facility] Interpretation and review of laboratory results Abnormal [facility] Potassium [Moles/Vol] 4.8 mmol/L 3.5 - 5.0 mmol/L [facility] Sodium [Moles/Vol] 137 mmol/L 132 - 146 mmol/L [facility] Urea nitrogen [Mass/Vol] 19 mg/dL 6 - 20 mg/dL [facility] Anion gap [Moles/Vol] 17 mmol/L High 7 - 16 mmol/L [facility] [employer] Calcium [Mass/Vol] 8.2 mg/dL Low 8.6 - 10. 2 mg/dL [facility] Chloride [Moles/Vol] 105 mmol/L 98 - 10 7 mmol/L [facility] CO2 [Moles/Vol] 20 mmol/L Low 22 - 29 mmol/L [facility] Creatinine [Mass/Vol] 1.2 mg/dL 0.7 - 1.2 mg/dL [facility] [employer] GFR/1.73 sq M.predicted among non-blacks MDRD (S/P/Bld) [Vol rate/Area] mL/min/1.73 60 - PINF mL/min/1.73 [facility] Comment on above: Pediatric calculator link https://www.kidney.org/professionals/kdoqi/gfr_calculatorped [...] 104 mg/dL High 74 - 99 mg/dL [facility] Interpretation and review of laboratory results Abnormal [facility] Potassium [Moles/Vol] 4.2 mmol/L 3.5 - 5.0 mmol/L [facility] Sodium [Moles/Vol] 142 mmol/L 132 - 146 mmol/L [facility] Urea nitrogen [Mass/Vol] 16 mg/dL 6 - 20 mg/dL [facility] CBC With Platelet and Differ entialon 02-01-2023 Abs Imm Granulocytes 0.03 E9/L Normal [facility] Absolute Basophils 0.01 E9/L Normal 0.00-0.20 [facility] Absolute Eosinophils 0.04 E9/L Low 0.05-0.50 [facility] Absolute Lymphocytes 0.71 E9/L Low 1.50-4.00 [facility] Absolute Monocytes 0.29 E9/L Normal 0.10-0.95 [facility] Absolute Neutrophils 2.67 E9/L Normal 1.80-7.30 [facility] Basophils/100 WBC (Bld) 0.3 % Normal 0.0-2.0 [facility] Eosinophils/100 WBC (Bld) 1.1 % Normal 0.0-6.0 [facility] Hematocrit (Bld) [Volume fraction] 39.3 % Normal 37.0-54.0 [facility] Hemoglobin (Bld) [Mass/Vol] 12.9 g/dL Normal 12.5-16.5 [facility] Imm Granulocytes 0.8 % Normal 0.0-5.0 [facility] Lymphocytes/100 WBC (Bld) 18.9 % Low 20.0-42.0 [facility] MCH (RBC) [Entitic mass] 29.1 pg Normal 26.0-35.0 [facility] MCHC 32.8 % Normal 32.0-34.5 [facility] MCV (RBC) [Entitic vol] 88.5 fL Normal 80.0-99.9 [facility] Monocytes/100 WBC (Bld) 7.7 % Normal 2.0-12.0 [facility] Neutrophils/100 WBC (Bld) 71.2 % Normal 43.0-80.0 [facility] Platelet Count 131 E9/L Normal 130-450 [facility] Platelet mean volume (Bld) [Entitic vol] 11.1 fL Normal 7.0-12.0 [facility] RBC 4.44 E12/L Normal 3.80-5.80 [facility] RDW 12.8 fL Normal 11.5-15.0 [facility] WBC 3.8 E9/L Low 4.5-11.5 [facility] Abs Imm Granulocytes 0.02 E9/L Normal [facility] Absolute Basophils 0.02 E9/L Normal 0.00-0.20 [facility] Absolute Eosinophils 0.12 E9/L Normal 0.05-0.50 [facility] Absolute Lymphocytes 1.39 E9/L Low 1.50-4.00 [facility] Absolute Monocytes 0.32 E9/L Normal 0.10-0.95 [facility] Absolute Neutrophils 2.38 E9/L Normal 1.80-7.30 [facility] Basophils/100 WBC (Bld) 0.5 % Normal 0.0-2.0 [facility] Eosinophils/100 WBC (Bld) 2.8 % Normal 0.0-6.0 [facility] Hematocrit (Bld) [Volume fraction] 37.8 % Normal 37.0-54.0 [facility] Hemoglobin (Bld) [Mass/Vol] 13.0 g/dL Normal 12.5-16.5 [facility] Imm Granulocytes 0.5 % Normal 0.0-5.0 [facility] Lymphocytes/100 WBC (Bld) 32.7 % Normal 20.0-42.0 [facility] MCH (RBC) [Entitic mass] 29.8 pg Normal 26.0-35.0 [facility] MCHC 34.4 % Normal 32.0-34.5 [facility] MCV (RBC) [Entitic vol] 86.7 fL Normal 80.0-99.9 [facility] Monocytes/100 WBC (Bld) 7.5 % Normal 2.0-12.0 [facility] Neutrophils/100 WBC (Bld) 56.0 % Normal 43.0-80.0 [facility] Platelet Count 156 E9/L Normal 130-450 [facility] Platelet mean volume (Bld) [Entitic vol] 10.7 fL Normal 7.0-12.0 [facility] RBC 4.36 E12/L Normal 3.80-5.80 [facility] RDW 12.9 fL Normal 11.5-15.0 [facility] WBC 4.3 E9/L Low 4.5-11.5 [facility] CBC with Auto Differentialon 02-01-2023 Basophils (Bld) [#/Vol] 0.01 10*3/uL [facility] Basophils/100 WBC (Bld) 0.3 % 0.0 - 2.0 % [facility] Eosinophils (Bld) [#/Vol] 0.04 10*3/uL Low [facility] Eosinophils/100 WBC (Bld) 1.1 % 0.0 - 6.0 % [facility] Erythrocyte distribution width (RBC) [Ratio] 12.8 fL 11.5 - 15.0 fL [facility] Hematocrit (Bld) [Volume fraction] 39.3 % 37.0 - 54.0 % [facility] Hemoglobin (Bld) [Mass/Vol] 12.9 g/dL 12.5 - 16.5 g/dL [facility] Immature granulocytes (Bld) [#/Vol] 0.03 10*3/uL E9/L [facility] Immature granulocytes/100 WBC (Bld) 0.8 % 0.0 - 5.0 % [facility] Interpretation and review of laboratory results Abnormal [facility] Lymphocytes (Bld) [#/Vol] 0.71 10*3/uL Low [facility] Lymphocytes/100 WBC (Bld) 18.9 % Low 20.0 - 42.0 % [facility] MCH (RBC) [Entitic mass] 29.1 pg 26.0 - 35.0 pg [facility] MCHC (RBC) [Mass/Vol] 32.8 % 32.0 - 34.5 % [facility] MCV (RBC) [Entitic vol] 88.5 fL 80.0 - 99.9 fL [facility] Monocytes (Bld) [#/Vol] 0.29 10*3/uL [facility] Monocytes/100 WBC (Bld) 7.7 % 2.0 - 12.0 % [facility] Neutrophils (Bld) [#/Vol] 2.67 10*3/uL [facility] Platelet mean volume (Bld) [Entitic vol] 11.1 fL 7.0 - 12.0 fL [facility] Platelets (Bld) [#/Vol] 131 10*3/uL [facility] RBC (Bld) [#/Vol] 4.44 10*6/uL [facility] Segmented neutrophils/100 WBC (Bld) 71.2 % 43.0 - 80.0 % [facility] WBC (Bld) [#/Vol] 3.8 10*3/uL Low [facility] Basophils (Bld) [#/Vol] 0.02 10*3/uL [facility] Basophils/100 WBC (Bld) 0.5 % 0.0 - 2.0 % [facility] Eosinophils (Bld) [#/Vol] 0.12 10*3/uL [facility] Eosinophils/100 WBC (Bld) 2.8 % 0.0 - 6.0 % [facility] Erythrocyte distribution width (RBC) [Ratio] 12.9 fL 11.5 - 15.0 fL [facility] Hematocrit (Bld) [Volume fraction] 37.8 % 37.0 - 54.0 % [facility] Hemoglobin (Bld) [Mass/Vol] 13.0 g/dL 12.5 - 16.5 g/dL [facility] Immature granulocytes (Bld) [#/Vol] 0.02 10*3/uL E9/L [facility] Immature granulocytes/100 WBC (Bld) 0.5 % 0.0 - 5.0 % [facility] Interpretation and review of laboratory results Abnormal [facility] Lymphocytes (Bld) [#/Vol] 1.39 10*3/uL Low [facility] Lymphocytes/100 WBC (Bld) 32.7 % 20.0 - 42.0 % [facility] MCH (RBC) [Entitic mass] 29.8 pg 26.0 - 35.0 pg [facility] MCHC (RBC) [Mass/Vol] 34.4 % 32.0 - 34.5 % [facility] MCV (RBC) [Entitic vol] 86.7 fL 80.0 - 99.9 fL [facility] Monocytes (Bld) [#/Vol] 0.32 10*3/uL [facility] Monocytes/100 WBC (Bld) 7.5 % 2.0 - 12.0 % [facility] Neutrophils (Bld) [#/Vol] 2.38 10*3/uL [facility] Platelet mean volume (Bld) [Entitic vol] 10.7 fL 7.0 - 12.0 fL [facility] Platelets (Bld) [#/Vol] 156 10*3/uL [facility] RBC (Bld) [#/Vol] 4.36 10*6/uL [facility] Segmented neutrophils/100 WBC (Bld) 56.0 % 43.0 - 80.0 % [facility] WBC (Bld) [#/Vol] 4.3 10*3/uL Low [facility] CTA ABDOMEN PELVIS W CONTRAS Ton 02-01-2023 [...] Howard Pederson MD 02/01/23 Final result Normal [facility] Comment on above: Order Comment: Reaso [...] diarrheal process in the proper clinical setting. [facility] RIS CONSOLIDATED EXAMINATION: CTA OF THE ABDOMEN [...] within normal limits. Subcutaneous structures appear unremarkable. [facility] R[facility] CONSOLIDATED Howard Pederson MD - 02/01/2023 [...] diarrheal process in the proper clinical setting. [employer] Work Phone: CTA ABDOMEN PELVIS W CONTRAS TOrdered By: Howard Pederson on 02-01-2023 [employer] Work Phone: CTA CHEST W CONTRASTon 02-01 [...] Howard Pederson MD 02/01/23 Final result Normal [facility] Comment on above: Order Comment: Reaso [...] 3. Cardiomegaly and mildly dilated left ventricle. [facility] CONSOLIDATED EXAMINATION: CTA OF THE CHEST [...] No acute bone or soft tissue abnormality. [facility] CONSOLID[facility] Howard Pederson MD - 02/01/2023 [...] 3. Cardiomegaly and mildly dilated left ventricle. [facility] Work Phone: [facility] [employer] Phone: Comprehensive Metabolic Pane l reflex Mgon 02-01-2023 Albumin [Mass/Vol] 4.0 g/dL Normal 3.5-5.2 [facility] ALP [Catalytic activity/Vol] 63 U/L Normal 40-129 [facility] ALT [Catalytic activity/Vol] 31 U/L Normal 0-40 [facility] Anion gap [Moles/Vol] 20 mmol/L High 7-16 [facility] AST [Catalytic activity/Vol] 22 U/L Normal 0-39 [facility] Bilirubin [Mass/Vol] 0.3 mg/dL Normal 0.0-1.2 [facility] Calcium [Mass/Vol] 8.6 mg/dL Normal 8.6-10.2 [facility] Chloride [Moles/Vol] 97 mmol/L Low 98-107 [facility] CO2 [Moles/Vol] 19 mmol/L Low 22-29 [facility] Creatinine [Mass/Vol] 1.3 mg/dL High 0.7-1.2 [facility] GFR Calculated >60 Normal >=60 [facility] Comment on above: Result Comment: Chaim starrc calculator link [email or web address]://www.kidney.org/professionals/kdoqi/gfr_calculatorped Effective Jun 25, 2022 [...] secretion. Glucose [Mass/Vol] 116 mg/dL High 74-99 [facility] Magnesium [Moles/Vol] 3.2 mmol/L Low 3.5-5.0 [facility] Protein [Mass/Vol] 6.7 g/dL Normal 6.4-8.3 [facility] Sodium [Moles/Vol] 136 mmol/L Normal 132-146 [facility] Urea nitrogen [Mass/Vol] 16 mg/dL Normal 6-20 [facility] Comprehensive metabolic 2000 panelon 02-01-2023 Albumin [Mass/Vol] 4 g/dL 3.5 - 5.2 g/dL [facility] ALP [Catalytic activity/Vol] 63 U/L 40 - 129 U/L [facility] ALT [Catalytic activity/Vol] 31 U/L 0 - 40 U/L [facility] Anion gap [Moles/Vol] 20 mmol/L High 7 - 16 mmol/L [facility] AST [Catalytic activity/Vol] 22 U/L 0 - 39 U/L [facility] Bilirubin [Mass/Vol] 0.3 mg/dL 0.0 - 1 .2 mg/dL [facility] Calcium [Mass/Vol] 8.6 mg/dL 8.6 - 10. 2 mg/dL [facility] Chloride [Moles/Vol] 97 mmol/L Low 98 - 10 7 mmol/L [facility] CO2 [Moles/Vol] 19 mmol/L Low 22 - 29 mmol/L [facility] [employer] Creatinine [Mass/Vol] 1.3 mg/dL High 0.7 - 1.2 mg/dL [facility] [employer] GFR/1.73 sq M.predicted among non-blacks MDRD (S/P/Bld) [Vol rate/Area] mL/min/1.73 60 - PINF mL/min/1.73 [facility] Comment on above: Pediatric calculator link [email or web address]://www.kidney.org/professionals/kdoqi/gfr_calculatorped [...] 116 mg/dL High 74 - 99 mg/dL [facility] Interpretation and review of laboratory results Abnormal [facility] Potassium [Moles/Vol] 3.2 mmol/L Low 3.5 - 5.0 mmol/L [facility] Protein [Mass/Vol] 6.7 g/dL 6.4 - 8.3 g/dL [facility] Sodium [Moles/Vol] 136 mmol/L 132 - 146 mmol/L [facility] Urea nitrogen [Mass/Vol] 16 mg/dL 6 - 20 mg/dL [facility] EKG 12 LeadOrdered By: Rhona Davies on 02-01-2023 Atrial Rate 74 BPM [employer] Work Phone: P [place] 45 degrees [employer] Work Phone: P-R Interval 186 ms [employer] Work Phone: Q-T Interval 362 ms [employer] Work Phone: QRS Duration 98 ms [employer] Work Phone: QTc Calculation (Bazett) 401 ms [employer] Work Phone: R [place] 1 degrees [facility] [employer] Work Phone: T [place] 18 degrees [facility] [employer] Work Phone: Ventricular Rate 74 BPM [facility] [employer] [email or web address] Work Phone: [facility] [email or web address] Work Phone: EKG 12 Leadon 02-01-2023 Normal sinus rhythm Normal ECG When compared with ECG of 01-FEB-2023 00:11, No significant change was found Confirmed by Cody Davies () on 02/01/2023 5:24:53 PM [facility] MUSE Cody Davies D O - 02/01/2023 Normal sinus rhythm Normal ECG When compared with ECG of 01-FEB-2023 00:11, No significant change was found Confirmed by Cody Davies () on 02/01/2023 5:24:53 PM [facility] Work Phone: Ethanolon 02-01-2023 Ethanolamine [Mass/Vol] 51 mg/dL [facility] Comment on above: Not Detected Ethanolamine [Mass/Vol]on [facility] Hepatic Function Panelon Albumin [Mass/Vol] 4.2 g/dL 3.5 - 5.2 g/dL [facility] ALP [Catalytic activity/Vol] 72 U/L 40 - 129 U/L [facility] ALT [Catalytic activity/Vol] 30 U/L 0 - 40 U/L [facility] AST [Catalytic activity/Vol] 21 U/L 0 - 39 U/L [facility] Bilirubin [Mass/Vol] 0.3 mg/dL 0.0 - 1 .2 mg/dL [facility] Bilirubin.direct [Mass/Vol] mg/dL 0.0 - 0.3 mg/dL [facility] Bilirubin.indirect [Mass/Vol] see below 0.0 - 1.0 mg/dL [facility] Comment on above: Indirect Bilirubin c annot be calculated since Total Bilirubin and/or Direct Bilirubin is below measurable range. Protein [Mass/Vol] 7.0 g/dL 6.4 - 8.3 g/dL [facility] High Sensitivity Troponin To n 02-01-2023 High Sensitivity Troponin T <6 Normal 0-11 [facility] Comment on above: Result Comment: High Sensitivity Troponin values cannot be compared with other Troponin methodologies. High Sensitivity Troponin T <6 Normal 0-11 [facility] Comment on above: Result Comment: High Sensitivity Troponin values cannot be compared with other Troponin methodologies. High Sensitivity Troponin T 6 ng/L Normal 0-11 [facility] Comment on above: Result Comment: High Sensitivity Troponin values cannot be compared with other Troponin methodologies. Lactic Acidon 02-01-2023 Lactate [Moles/Vol] 0.8 mmol/L Normal 0.5-2.2 [facility] Lactate (BldV) [Moles/Vol] 0.8 mmol/L 0.5 - 2.2 mmol/L [facility] Lipaseon 02-01-2023 Lipase [Catalytic activity/Vol] 34 U/L Normal 13-60 [facility] Lipase [Catalytic activity/Vol] 34 U/L 13 - 60 U/L [facility] Liver Panelon 02-01-2023 Albumin [Mass/Vol] 4.2 g/dL Normal 3.5-5.2 [facility] ALP [Catalytic activity/Vol] 72 U/L Normal 40-129 [facility] ALT [Catalytic activity/Vol] 30 U/L Normal 0-40 [facility] AST [Catalytic activity/Vol] 21 U/L Normal 0-39 [facility] Bilirubin [Mass/Vol] 0.3 mg/dL Normal 0.0-1.2 [facility] Bilirubin Indirect see below Normal 0.0-1.0 [facility] Comment on above: Result Comment: Julia rect Bilirubin cannot be calculated since Total Bilirubin and/or Direct Bilirubin is below measurable range. Bilirubin.indirect [Mass/Vol] mg/dL Normal 0.0-0.3 [facility] Protein [Mass/Vol] 7.0 g/dL Normal 6.4-8.3 [facility] Magnesiumon 02-01-2023 Magnesium [Mass/Vol] 2.1 mg/dL Normal 1.6-2.6 [facility] Magnesium [Mass/Vol] 2.1 mg/dL 1.6 - 2 .6 mg/dL [facility] Magnesium [Mass/Vol]on 02-01 [facility] No Panel Informationon 02-01 Radiology Study observation (narrative) [facility] Work Phone: [facility] Serum Drug Screenon 02-02-20 TCA Screen Negative Normal Cutoff:300 [facility] Acetaminophen [Mass/Vol] ug/mL Low 10.0-30.0 [facility] Ethanol [Mass/Vol] mg/dL Normal [facility] Comment on above: Result Comment: Not Detected Salicylate <0.3 Normal 0.0-30.0 [facility] TCA Screen Negative Normal Cutoff:300 [facility] Acetaminophen [Mass/Vol] ug/mL Low [facility] Ethanolamine [Mass/Vol] <10 mg/dL [facility] Comment on above: Not Detected Interpretation and review of laboratory results Abnormal [facility] Salicylates [Mass/Vol] mg/dL 0.0 - 30.0 mg/dL [facility] TCA Scrn Negative [facility] Acetaminophen [Mass/Vol] ug/mL Low 10.0-30.0 [facility] Ethanol [Mass/Vol] 152 mg/dL Normal [facility] Comment on above: Result Comment: Not Detected Salicylate <0.3 Normal 0.0-30.0 [facility] Troponinon 02-01-2023 Troponin, High Sensitivity ng/L 0 - 11 ng/L [facility] Comment on above: High Sensitivity Tro ponin values cannot be compared with other Troponin methodologies. Troponin, High Sensitivity ng/L 0 - 11 ng/L [facility] Comment on above: High Sensitivity Tro ponin values cannot be compared with other Troponin methodologies. [facility] Troponin, High Sensitivity 6 ng/L 0 - 11 ng/L [facility] Comment on above: High Sensitivity Tro ponin values cannot be compared with other Troponin methodologies. [facility] UR Drugs of Abuse Panelon UR Amphetamines Screen Not detected Normal Negative <1000 ng/mL [facility] UR Barbiturates Screen Not detected Normal Negative < 200 ng/mL [facility] UR Benzo Screen Not detected Normal Negative < 200 ng/mL [facility] UR Cannabinoids Screen Not detected Normal Negative < 50ng/mL [facility] UR Cocaine Screen Not detected Normal Negative < 300 ng/mL [facility] UR Fentanyl Screen Not detected Normal Negative <1 ng/mL [facility] UR Methadone Screen Not detected Normal Negative <300 ng/mL [facility] UR Opiates Screen Not detected Normal Negative < 300ng/mL [facility] Comment on above: Result Comment: Note : The Opiate Screen is not intended to detect Oxycodone. UR Oxycodone Screen Not detected Normal Negative <100 ng/mL [facility] UR PCP Screen Not detected Normal Negative < 25 ng/mL [facility] Drug Screen Comment see below Normal [facility] Comment on above: Result Comment: Thes e drug screen results are for medical purposes only and should not be considered definitive or confirmed. The drug methodology concentration value must be greater than or equal to the cutoff to be reported as positive. Confirmatory testing orders and/or interpretive screening questions can be directed to toxicology at [phone]. The absence of expected drug(s) and/or metabolite(s) may be due to inappropriate timing of specimen collection relative to drug administration, poor drug absorption, diluted/adulterated urine, or limitations of screening testing methodology. URINE DRUG SCREENon 02-02-20 23 Amphetamines Ql (U) Not detected Negative <1000 ng/mL [facility] Barbiturates Screen Ql (U) Not detected Negative < 200 ng/mL [facility] Benzodiazepines Ql (U) Not detected Negative < 200 ng/mL [facility] Cannabinoids Screen Ql (U) Not detected Negative < 50ng/mL [facility] Cocaine Ql (U) Not detected Negative < 300 ng/mL [facility] Drug screen comment (U) [Interp] see below [facility] Comment on above: These drug screen re sults are for medical purposes only and should not be considered definitive or confirmed. The drug methodology concentration value must be greater than or equal to the cutoff to be reported as positive. Confirmatory testing orders and/or interpretive screening questions can be directed to toxicology at [phone]. The absence of expected drug(s) and/or metabolite(s) may be due to inappropriate timing of specimen collection relative to drug administration, poor drug absorption, diluted/adulterated urine, or limitations of screening testing methodology. FENTANYL SCREEN, URINE Not detected Negative <1 ng/mL [facility] Methadone Screen Ql (U) Not detected Negative <300 ng/mL [facility] Opiates Screen Ql (U) Not detected Negati ve < 300ng/mL [facility] Comment on above: Note: The Opiate Scr een is not intended to detect Oxycodone. Oxycodone Urine Not detected Negative <100 ng/mL [facility] Phencyclidine Ql (U) Not detected Negativ e < 25 ng/mL [facility] Urinalysis with Microscopico n 02-01-2023 Bacteria LM Ql (Urine sed) NONE SEEN None Seen /HPF [facility] Bilirubin Ql (U) Negative Negative [facility] Clarity (U) Clear Clear [facility] Color (U) Yellow Straw/Yellow [facility] Glucose Test strip (U) [Mass/Vol] Negative Negative mg/dL [facility] Hemoglobin Ql (U) Negative Negative [facility] Ketones (U) [Mass/Vol] Negative Negative mg/dL [facility] Leukocyte esterase Test strip Ql (U) Negative Negative [facility] Nitrite Ql (U) Negative Negative [facility] pH (U) 5.5 [pH] 5.0 - 9.0 [facility] Protein (U) [Mass/Vol] Negative Negative mg/dL [facility] RBC LM.HPF (Urine sed) [#/Area] NONE [facility] Specific gravity (U) [Rel density] 1.010 1.005 - 1.030 [facility] Urobilinogen Qn (U) 0.2 NINF MADHURI [facility] WBC LM.HPF (Urine sed) [#/Area] NONE [facility] Urinalysis, with microscopic on 02-01-2023 Urine Bacteria NONE SEEN Normal None Seen [facility] Urine RBC NONE Normal 0-2 [facility] Urine WBC NONE Normal 0-5 [facility] Bilirubin Ql (U) Negative Normal Negative [facility] Clarity (U) Clear Normal Clear [facility] Color (U) Yellow Normal Straw/Yellow [facility] Glucose Ql (U) Negative Normal Negative [facility] Hemoglobin Ql (U) Negative Normal Negative [facility] Ketones Ql (U) Negative Normal Negative [facility] Leukocyte esterase Test strip Ql (U) Negative Normal Negative [facility] Nitrite Ql (U) Negative Normal Negative [facility] pH (U) 5.5 [pH] Normal 5.0-9.0 [facility] Protein Ql (U) Negative Normal Negative [facility] Specific gravity (U) [Rel density] 1.010 Normal 1.005-1.030 [facility] Urobilinogen Qn (U) 0.2 {Gia'U}/dL Normal < 2.0 [facility] ALCOHOLon 01-29-2023 Ethanol [Mass/Vol] mg/dL Normal [place] on/[facility] Comment on above: Result Comment: FOR MEDICAL USE ONLY. . REF VALUES <10 Performed By: #### A #### [facility] [address] [place] [address] BASIC METABOLIC PANELon Anion gap [Moles/Vol] 11 mmol/L Normal 10 - 20 Ankit inson/[facility] Comment on above: Performed By: #### B MP #### [address] [address] Calcium [Mass/Vol] 8.9 mg/dL Normal 8.6 - 10.3 [facility] Comment on above: Performed By: #### B MP #### [address] [address] Chloride [Moles/Vol] 104 mmol/L Normal 98 - 107 [facility] Comment on above: Performed By: #### B MP #### [address] [address] Creatinine [Mass/Vol] 0.97 mg/dL Normal 0.50 - 1.30 [facility] Comment on above: Performed By: #### B MP #### [address] [address] eGFR MALE >90 Normal >90 [facility] Comment on above: Result Comment: CALC ULATIONS OF ESTIMATED GFR ARE PERFORMED USING THE 2020 CKD-EPI STUDY REFIT EQUATION WITHOUT THE RACE VARIABLE FOR THE IDMS-TRACEABLE CREATININE METHODS. https://jasn.asnjournals.org/content/early//ASN.503808 7501 Performed By: #### B MP #### [address] [address] Glucose [Mass/Vol] 115 mg/dL High 74 - 99 [facility] Comment on above: Performed By: #### B MP #### [address] [address] HCO3 (Bld) [Moles/Vol] 25 mmol/L Normal 21 - 32 [facility] Comment on above: Performed By: #### B MP #### [address] [address] Potassium [Moles/Vol] 3.9 mmol/L Normal 3.5 - 5.[address] [facility] Comment on above: Performed By: #### B MP #### [place] [address] [address] Sodium [Moles/Vol] 136 mmol/L Normal 136 - 145 [place] [facility] Comment on above: Performed By: #### B MP #### [address] [address] Urea nitrogen [Mass/Vol] 19 mg/dL Normal 6 - 23 [facility] Comment on above: Performed By: #### B MP #### [address] [address] CBC AND DIFFERENTIALon 01-29 % AUTOMATED IMMATURE GRAN 0.3 % Normal 0.0 - 0.9 [facility] Comment on above: Result Comment: Kath ture Granulocyte Count (IG) includes promyelocytes, myelocytes and metamyelocytes but does not include bands. Percent differential counts (%) should be interpreted in the context of the absolute cell counts (cells/L). Performed By: #### C BCDF #### [place] [id number] Basophils (Bld) [#/Vol] 0.02 10*3/uL Normal 0.00 - 0.10 [facility] Comment on above: Performed By: #### C BCDF #### [address] [address] Basophils/100 WBC (Bld) 0.5 % Normal 0.0 - 2.0 [facility] Comment on above: Performed By: #### C BCDF #### [address] [address] Eosinophils (Bld) [#/Vol] 0.10 10*3/uL Normal 0.00 - 0.70 [facility] Comment on above: Performed By: #### C BCDF #### [address] [address] Eosinophils/100 WBC (Bld) 2.7 % Normal 0.0 - 6.0 [facility] Comment on above: Performed By: #### C BCDF #### [address] [address] Erythrocyte distribution width (RBC) [Ratio] 13.0 % Normal 11.5 - 14.5 [facility] Comment on above: Performed By: #### C BCDF #### [address] [address] Hematocrit (Bld) [Volume fraction] 37.2 % Low 41.0 - 52.0 [facility] Comment on above: Performed By: #### C BCDF #### [address] [address] Hemoglobin (Bld) [Mass/Vol] 12.6 g/dL Low 13.5 - 17.5 [facility] Comment on above: Performed By: #### C BCDF #### [place] [address] Lymphocytes (Bld) [#/Vol] 1.12 10*3/uL Low 1.20 - 4.80 [facility] Comment on above: Performed By: #### C BCDF #### [address] [address] Lymphocytes/100 WBC (Bld) 29.9 % Normal 13.0 - 44.0 [facility] Comment on above: Performed By: #### C BCDF #### [address] [address] MCHC (RBC) [Mass/Vol] 33.9 g/dL Normal 32.0 - 36.0 [facility] Comment on above: Performed By: #### C BCDF #### [address] [address] MCV (RBC) [Entitic vol] 85 fL Normal 80 - 100 [facility] Comment on above: Performed By: #### C BCDF #### [address] [address] Monocytes (Bld) [#/Vol] 0.35 10*3/uL Normal 0.10 - 1.00 [facility] Comment on above: Performed By: #### C BCDF #### [address] [address] Monocytes/100 WBC (Bld) 9.4 % Normal 2.0 - 10.0 [facility] Comment on above: Performed By: #### C BCDF #### [address] [address] Neutrophils (Bld) [#/Vol] 2.14 10*3/uL Normal 1.20 - 7.70 [facility] Comment on above: Performed By: #### C BCDF #### [address] [address] Neutrophils/100 WBC (Bld) 57.2 % Normal 40.0 - 80.0 [facility] Comment on above: Performed By: #### C BCDF #### [address] [address] Platelets (Bld) [#/Vol] 150 10*3/uL Normal 150 - 450 [facility] Comment on above: Performed By: #### C BCDF #### [address] [address] RBC 4.39 x10E12/L Low 4.50 - 5.90 [place] Comment on above: Performed By: #### C BCDF #### [address] [address] WBC (Bld) [#/Vol] 3.7 10*3/uL Low 4.4 - 11.3 [place] [facility] Comment on above: Performed By: #### C BCDF #### [address] [address] DRUG SCREEN,URINEon 01-30-20 23 AMPHETAMINE SCREEN,U Negative Normal NEGATIVE Naun nson/[facility] Comment on above: Result Comment: CUTO FF LEVEL: 500 NG/ML Cross-reactivity has been reported with high concentrations of the following drugs: buproprion, chloroquine, chlorpromazine, ephedrine, mephentermine, fenfluramine, phentermine, phenylpropanolamine, pseudoephedrine, and propranolol. Performed By: #### D RUG3 #### [address] [address] BARBITURATES SCREEN,U Negative Normal NEGATIVE [facility] Comment on above: Result Comment: CUTO FF LEVEL: 200 NG/ML Performed By: #### D RUG3 #### [address] [address] BENZODIAZEPINES SCREEN,U Negative Normal NEGATIVE [facility] Comment on above: Result Comment: CUTO FF LEVEL: 200 NG/ML Performed By: #### D RUG3 #### [address] [address] CANNABINOIDS SCREEN,U Negative Normal NEGATIVE [facility] Comment on above: Result Comment: CUTO FF LEVEL: 50 NG/ML Performed By: #### D RUG3 #### [address] [address] COCAINE METABOLITE SCREEN,U Negative Normal NEGATIVE [facility] Comment on above: Result Comment: CUTO FF LEVEL: 150 NG/ML Performed By: #### D RUG3 #### [address] [address] DRUG SCREEN COMMENT SEE BELOW Normal [place] son/[facility] Comment on above: Result Comment: Drug screen results are presumptive and should not be used to assess compliance with prescribed medication. Contact the performing [facility] laboratory to add-on definitive confirmatory testing if [...] directors. Performed By: #### D RUG3 #### [address] [address] FENTANYL SCREEN,URINE Negative Normal NEGATIVE [facility] on above: Result Comment: CUTO FF LEVEL: 5 NG/ML Performed By: #### D RUG3 #### [place] [address] METHADONE SCREEN,U Negative Normal NEGATIVE [place] on/[facility] Comment on above: Result Comment: CUTO FF LEVEL: 150 NG/ML The metabolite P-xydmk-svgngkgwokjxum (LAAM) is not detected by this method in concentrations that would be found in the urine of patients on LAAM therapy. Performed By: #### D RUG3 #### [place] [address] OPIATES SCREEN,U Negative Normal NEGATIVE [place] /[facility] Comment on above: Result Comment: CUTO FF LEVEL: 300 NG/ML The opiate screen does not detect fentanyl, meperidine, or tramadol. Oxycodone is not consistently detected (refer to Oxycodone Screen, Urine result). Performed By: #### D RUG3 #### [place] [address] OXYCODONE SCREEN,U Negative Normal NEGATIVE [place] /[facility] Comment on above: Result Comment: CUTO FF LEVEL: 100 NG/ML This test will accurately detect both oxycodone and oxymorphone. Performed By: #### D RUG3 #### [place] [address] PCP SCREEN,U Negative Normal NEGATIVE [place]/[facility] Comment on above: Result Comment: CUTO FF LEVEL: 25 NG/ML Cross-reactivity has been reported with dextromethorphan. Performed By: #### D RUG3 #### [place] [address] MAGNESIUMon 01-29-2023 Magnesium [Mass/Vol] 1.98 mg/dL Normal 1.60 - 2.40 Ankit inson/[facility] Comment on above: Performed By: #### M G #### [place] [address] Provider Note - ED v3on 05-0 Provider Note - ED v3 Provider Note: [...] Name: cloNID (more content not included)... Normal [place]/[facility] VENOUS FULL PANELon 01-30-20 Anion gap [Moles/Vol] 9 mmol/L Low 10 - 25 [facility] Comment on above: Performed By: #### V FPA4 #### [address] [address] BASE EXCESS-BLOOD 0.7 mmol/L Normal -2.0 - 3.0 [facility] Comment on above: Performed By: #### V FPA4 #### [address] [address] BICARB, CALCULATED 25.4 mmol/L Normal 22.0 - 26.0 Naun [facility] Comment on above: Performed By: #### V FPA4 #### [address] [address] CALCIUM,IONIZED 1.19 mmol/L Normal 1.10 - 1.33 [facility] Comment on above: Performed By: #### V FPA4 #### [place] [address] Chloride [Moles/Vol] 105 mmol/L Normal 98 - 107 [facility] Comment on above: Performed By: #### V FPA4 #### [address] [address] Glucose [Mass/Vol] 114 mg/dL High 74 - 99 [facility] Comment on above: Performed By: #### V FPA4 #### [address] [address] Hematocrit (Bld) [Volume fraction] 40.0 % Low 41.0 - 52.0 [facility] Comment on above: Performed By: #### V FPA4 #### [address] [address] Hemoglobin (Bld) [Mass/Vol] 13.2 g/dL Low 13.5 - 17.5 [facility] Comment on above: Performed By: #### V FPA4 #### [address] [address] Lactate [Moles/Vol] 1.0 mmol/L Normal 0.4 - 2.0 [facility] Comment on above: Performed By: #### V FPA4 #### [address] [address] OXY HGB 93.6 % High 45.0 - 75.0 [facility] Comment on above: Performed By: #### V FPA4 #### [address] [address] Oxygen (Bld) [Partial pressure] 69 mm[Hg] High 35 - 45 [facility] Comment on above: Performed By: #### V FPA4 #### [address] [address] PATIENT TEMPERATURE 37.0 degrees C Normal R [facility] Comment on above: Result Comment: NOTE : PATIENT RESULTS ARE NOT CORRECTED FOR TEMPERATURE. Performed By: #### V FPA4 #### [address] [address] PCO2 40 mmHg Low 41 - 51 [facility] Comment on above: Performed By: #### V FPA4 #### [address] [address] pH (Bld) 7.41 [pH] Normal 7.33 - 7.43 [facility] Comment on above: Performed By: #### V FPA4 #### [address] [address] Potassium [Moles/Vol] 3.9 mmol/L Normal 3.5 - 5.3 [facility] Comment on above: Performed By: #### V FPA4 #### [address] [address] SO2 95 % High 45 - 75 [facility] Comment on above: Performed By: #### V FPA4 #### [address] [address] Sodium [Moles/Vol] 135 mmol/L Low 136 - 145 [place] [facility] Comment on above: Performed By: #### V FPA4 #### [facility] [address] [place] [address] CBC with Diffon 01-22-2023 AB IMMATURE NEUT 0.00 K/UL Normal 0.0-0.1 [facility] Comment on above: Performed By: #### C BCD #### [facility] [address] [address] ABS BASO 0.02 K/UL Normal 0.00-0.22 [facility] Comment on above: Performed By: #### C BCD #### [facility] [address] [address] ABS EOS 0.07 K/UL Normal 0-0.45 [facility] Comment on above: Performed By: #### C BCD #### [facility] [place] [address] [address] [place] [address] ABS NEUTROPHILS 2.30 K/UL Normal 1.8-7.7 [facility] Comment on above: Performed By: #### C BCD #### [facility] [address] [address] ABS.NEUT.CALCULATED 2.30 K/UL Normal [facility] Comment on above: Result Comment: Perf ormed at [address] [place] [address] Performed By: #### C BCD #### [address] [address] Basophils/100 WBC (Bld) 0.50 % Normal 0-1 [facility] Comment on above: Performed By: #### C BCD #### [facility] [address] [address] DIFF TYPE AUTO DIFF Normal [facility] Comment on above: Performed By: #### C BCD #### [facility] [address] [address] Eosinophils/100 WBC (Bld) 1.80 % Normal 0-3 [facility] Comment on above: Performed By: #### C BCD #### [facility] [address] [address] Erythrocyte distribution width (RBC) [Ratio] 12.6 % Normal 11.7-15.0 [facility] Comment on above: Performed By: #### C BCD #### [facility] [address] [place] [address] Hematocrit (Bld) [Volume fraction] 38.6 % Low 41-50 [facility] Comment on above: Performed By: #### C BCD #### [facility] [address] [place] [address] Hemoglobin (Bld) [Mass/Vol] 13.1 g/dL Low 13.5-16.5 [facility] Comment on above: Performed By: #### C BCD #### [facility] [address] [place] [address] Lymphocytes (Bld) [#/Vol] 1.08 10*3/uL Low 1.2-3.2 [facility] Comment on above: Performed By: #### C BCD #### [address] [address] [place] [address] Lymphocytes/100 WBC (Bld) 28.50 % Normal 20-40 [facility] Comment on above: Performed By: #### C BCD #### [facility] [address] [place] [address] MCH (RBC) [Entitic mass] 29.2 pg Normal 26-34 [facility] Comment on above: Performed By: #### C BCD #### [address] [place] [address] MCHC 33.9 % Normal 31-37 [facility] Comment on above: Performed By: #### C BCD #### [facility] [address] [place] [address] MCV (RBC) [Entitic vol] 86.0 fL Normal 80-100 [facility] Comment on above: Performed By: #### C BCD #### [facility] [address] [place] [address] MEAN PLT VOL 11.3 CU Normal 7.0-12.6 [facility] Comment on above: Performed By: #### C BCD #### [facility] [address] [place] [address] Monocytes (Bld) [#/Vol] 0.32 10*3/uL Normal 0-0.8 [facility] Comment on above: Performed By: #### C BCD #### [facility] [address] [place] [address] Monocytes/100 WBC (Bld) 8.40 % High 0-8 [facility] Comment on above: Performed By: #### C BCD #### [facility] [address] [place] [address] Neutrophils/100 WBC (Bld) 0.00 % Normal 0.0-1.0 [facility] Comment on above: Performed By: #### C BCD #### [facility] [address] [place] [address] Neutrophils/100 WBC (Bld) 60.80 % Normal 50-70 [facility] Comment on above: Performed By: #### C BCD #### [address] [place] [address] NRBC'S 0 /100 WBC Normal 0 [facility] Comment on above: Performed By: #### C BCD #### [address] [place] [address] Platelets (Bld) [#/Vol] 156 10*3/uL Normal 150-450 [facility] Comment on above: Performed By: #### C BCD #### [address] [place] [address] RBC (Bld) [#/Vol] 4.49 10*6/uL Low 4.5-5.5 [facility] Comment on above: Performed By: #### C BCD #### [facility] [address] [place] [address] RDW-SD 38.7 FL Normal 37.0-54.0 [facility] Comment on above: Performed By: #### C BCD #### [facility] [address] [place] [address] WBC (Bld) [#/Vol] 3.8 10*3/uL Low 4.5-11.0 [facility] Comment on above: Performed By: #### C BCD #### [address] [address] CHEST 2 VIEWon 01-22-2023 CHEST 2 VIEW *FINAL Date of Service: 01/22/2023 20:03 Adm #: [id number] Reading Dr:BRYAN BOLANOS Signoff Dr: BRYAN BOLANOS PROCEDURE: CHEST 2 VIEW - WXR 0020 REASON FOR EXAM: cp RESULT: Patient Name: HOSEA ALVAREZ STUDY: CHEST 2 VIEW 01/22/2023 8:03 pm INDICATION: Chest pain after drinking caffeine COMPARISON: 09/05/2021 ACCESSION NUMBER(S): [id number] ORDERING CLINICIAN: ELVIRA MCNALLY TECHNIQUE: PA and lateral views of the chest were acquired. FINDINGS: The cardiac size is at the upper range of normal with tortuosity of the descending thoracic aorta. The lungs are clear without pleural abnormality. IMPRESSION: No acute cardiopulmonary disease. Dictation workstation: [id number] Original Interpreting Physician: BRYAN BOLANOS M.D. Original Transcribed by/Date: MMODAL Jan 22 2023 7:26P Original Electronically Signed by/Date: BRYAN BOLANOS M.D. Jan 22 2023 8:36P Addendum Interpreting Physician: Addendum Transcribed by/Date: NO ADDENDUM Addendum Electronically Signed by/Date: Normal [facility] COMPREHENSIVE METABOLIC PANE Bart 01-22-2023 Albumin [Mass/Vol] 4.3 g/dL Normal 3.5-5.0 [facility] Comment on above: Performed By: #### E JOHN #### [address] [address] Albumin/Globulin [Mass ratio] 1.6 {ratio} Normal 1.5-3.0 [facility] Comment on above: Performed By: #### E JOHN #### [facility] [address] [address] ALP [Catalytic activity/Vol] 66 U/L Normal 35-125 [facility] Comment on above: Performed By: #### E JOHN #### [facility] [address] [place] [address] ALT [Catalytic activity/Vol] 33 U/L Normal 5-40 [facility] Comment on above: Performed By: #### E JOHN #### [facility] [address] [place] [address] Anion gap [Moles/Vol] 12 mmol/L Normal 0-19 [facility] Comment on above: Performed By: #### E JOHN #### [facility] [address] [place] [address] AST [Catalytic activity/Vol] 22 U/L Normal 5-40 [facility] Comment on above: Performed By: #### E JOHN #### [facility] [address] [place] [address] Bilirubin [Mass/Vol] 0.2 mg/dL Normal 0.1-1.2 [facility] Comment on above: Performed By: #### E JOHN #### [facility] [address] [place] [address] Calcium [Mass/Vol] 9.1 mg/dL Normal 8.5-10.4 [facility] Comment on above: Performed By: #### E JOHN #### [facility] [address] [place] [address] Chloride [Moles/Vol] 101 mmol/L Normal 97-107 [facility] Comment on above: Performed By: #### E JOHN #### [facility] [address] [place] [address] CO2 [Moles/Vol] 25 mmol/L Normal 24-31 [facility] Comment on above: Performed By: #### E JOHN #### [facility] [address] [place] [address] Creatinine [Mass/Vol] 1.0 mg/dL Normal 0.4-1.6 [facility] Comment on above: Performed By: #### E JOHN #### Main [facility] [address] [place] [address] ESTIMATED GFR 91 mL/min/1.73 m2 [facility] Comment on above: Result Comment: CALCULATIONS OF ESTIMATED GFR ARE PERFORMED USING THE 2021 CKD-EPI STUDY REFIT EQUATION WITHOUT THE RACE VARIABLE FOR THE IDMS-TRACEABLE CREATININE METHODS. https://jasn.asnjournals.org/content//ASN.590184 9663 Performed at [address] [place] [address] Performed By: #### E JOHN #### [address] [address] Globulin (S) [Mass/Vol] 2.7 g/dL Normal 1.9-3.7 [facility] Comment on above: Performed By: #### E JOHN #### [address] [address] Glucose [Mass/Vol] 122 mg/dL High 65-99 [facility] Comment on above: Performed By: #### E JOHN #### [address] [address] Potassium [Moles/Vol] 4.1 mmol/L Normal 3.4-5.1 [facility] Comment on above: Performed By: #### E JOHN #### [address] [address] Protein [Mass/Vol] 7.0 g/dL Normal 5.9-7.9 [facility] Comment on above: Performed By: #### E JOHN #### [address] [address] Sodium [Moles/Vol] 138 mmol/L Normal 133-145 [facility] Comment on above: Performed By: #### E JOHN #### [facility] [address] [address] Urea nitrogen [Mass/Vol] 18 mg/dL Normal 8-25 [facility] Comment on above: Performed By: #### E JOHN #### [facility] [address] [address] Urea nitrogen/Creatinine [Mass ratio] 18.0 mg/mg Normal 8-21 [facility] Comment on above: Performed By: #### E JOHN #### [facility] [address] [address] ED NOTEon 01-22-2023 ED NOTE HNO ID: [id number] Author: Batsheva Manley RN Service: ? Author Type: Registered Nurse Type: ED Notes Filed: 01/21/2023 11:10 PM Note Text: Discussed discharge instructions and follow up care with the patient. Patient verbalized understanding, provided bus pass, and pt left in stable condition [facility] ED NOTE HNO ID: [id number] Author: Helga Serrano RN Service: ? Author Type: Registered Nurse Type: ED Notes Filed: 01/21/2023 10:21 PM Note Text: Dr Fisher to bedside. [facility] ED NOTE HNO ID: [id number] Author: Batsheva Manley RN Service: ? Author Type: Registered Nurse Type: ED Notes Filed: 01/21/2023 10:13 PM Note Text: Pt up to triage window stating that he just needs a dose of his medication and a prescription refill. Pt states he doesn't need blood work, he knows what is going on and just needs a medicine [facility] ED PROV NOTEon 01-22-2023 ED PROV NOTE HNO ID: [id number] Author: Elgin Fisher MD Service: Emergency Medicine [...] to sleep. He states he is visiting [place] from [place] currently. He states he ran out of [...] Allergen Reactions Caffeine Rash Other reaction(s): Shakiness Marcola GI Upset, Rash, Vomiting Statused by Person: Imelda Meza.(T Carter2) on Statused by Person: SRAVANTHI MONGE([facility]) on Statused by Person: Imelda Meza.(T Carter2) on Statused by Person: SRAVANTHI MONGE([facility]) on Amlodipine Swelling Amoxicillin GI Upset Chocolate Flavor GI Upset Ciprofloxacin Other: See Comments Diazepam Unknown Fentanyl Mental Status Change Lorazepam GI Upset Other reaction(s): Abdominal Pain Seasonal Allergies GI Upset Abdominal pain Abdominal pain Serotonin Hcl Mental Status Change Other reaction(s): 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 Physical Exam Vitals [01/21/23 1914] BP Pulse Temp Temp src Resp SpO2 [...] Reviewed Rhythm: Normal sinus rhythm Rate: 92 [place]: Left axis deviation Intervals: Normal NV interval QRS Complex: Normal ST Segment: Normal ST-T segments QT Interval: Normal Compared with Prior: Unchanged Interpretation performed by Elgin Fisher MD Disposition The patient was discharged. Counseled patient re (more content not included)... Normal [facility] EKGon 01-22-2023 Electrocardiogram EKG Ventricular Rate : 76 BPM Atrial Rate : 76 BPM P-R Interval : 166 ms QRS Duration : 100 ms Q-T Interval : 354 ms QTC Calculation(Bazett) : 398 ms Calculated P [place] : 25 degrees Calculated R [place] : -23 degrees Calculated T [place] : 2 degrees Diagnosis:Normal sinus rhythm early repolarization in I AVL seen Aug 22 2021 Poor R wave progression V1-V6 Confirmed by MISHA ESCALANTE ([id number]) on 01/23/2023 9:27:21 PM Normal [facility] HS TROPONIN Ton 01-22-2023 HS TROPONIN T DELTA Normal 0-4 [facility] Comment on above: Result Comment: No p revious result Performed at [address] [address] Performed By: #### E JOHN #### [place] [id number] HS TROPONIN T,GEN 5 6 NG/L Normal <15 [facility] Comment on above: Result Comment: [...] administration. Performed By: #### E JOHN #### [place] [id number] Laboratory - Chemistry and C hemistry - challengeon 01-22-2023 Albumin [Mass/Vol] Albumin 4.3 GM/DL (3.5-5.0 GM/DL) 3.5 - 5.0 GM/DL [place] Albumin/Globulin [Mass ratio] Albumin Globulin Ratio 1.6 RATIO (1.5-3.0 RATIO) 1.5 - 3.0 RATIO [place] ALP (Bld) [Catalytic activity/Vol] Alk Phosphatase 66 U/L (35-125 U/L) 35 - 125 U/L [facility] ALT [Catalytic activity/Vol] ALT 33 U/L (5-40 U/L) 5 - 40 U/L [facility] Anion gap [Moles/Vol] Anion Gap 12 MMOL/ L (0-19 MMOL/L) 0 - 19 MMOL/L [facility] AST [Catalytic activity/Vol] AST 22 U/L (5-40 U/L) 5 - 40 U/L [place] Bilirubin [Mass/Vol] Total Bilirubin 0.2 MG/DL (0.1-1.2 MG/DL) 0.1 - 1.2 MG/DL [facility] Calcium [Mass/Vol] Calcium 9.1 MG/DL (8.5-10.4 MG/DL) 8.5 - 10.4 MG/DL [facility] Chloride [Moles/Vol] Chloride 101 MMOL/L (97-107 MMOL/L) 97 - 107 MMOL/L [facility] CO2 [Moles/Vol] Carbon Dioxide 25 MM OL/L (24-31 MMOL/L) 24 - 31 MMOL/L [facility] Creatinine [Mass/Vol] Creatinine R 1.0 M G/DL (0.4-1.6 MG/DL) 0.4 - 1.6 MG/DL [facility] GFR/1.73 sq M.predicted MDRD (S/P/Bld) [Vol rate/Area] EGFR 91 mL/min/1.73 m2 (Reference Range: not available) CALCULATIONS OF ESTIMATED GFR ARE PERFORMED USING THE 2020 CKD-EPI STUDY REFIT EQUATION WITHOUT THE RACE VARIABLE FOR THE IDMS-TRACEABLE CREATININE METHODS. https://jasn.asnjournals .org/content/06/14/ASN.6494321188 Performed at [address] [address] [facility] Globulin (S) [Mass/Vol] Globulin 2.7 G/DL (1.9-3.7 G/DL) 1.9 - 3.7 G/DL [facility] Glucose [Mass/Vol] Glucose 122 MG/DL H (65-99 MG/DL) High 65 - 99 MG/DL [facility] Potassium [Moles/Vol] Potassium R 4.1 MM OL/L (3.4-5.1 MMOL/L) 3.4 - 5.1 MMOL/L [facility] Protein [Mass/Vol] Total Protein 7.0 G/ DL (5.9-7.9 G/DL) 5.9 - 7.9 G/DL [facility] Sodium [Moles/Vol] Sodium 138 MMOL/L (133-145 MMOL/L) 133 - 145 MMOL/L [facility] Troponin T.cardiac [Mass/Vol] HS Troponin T,Gen 5 [...] until 8 hours following last biotin administration. [place] Urea nitrogen [Mass/Vol] BUN 18 MG/DL (8-25 MG/DL) 8 - 25 MG/DL [place] Urea nitrogen/Creatinine [Mass ratio] BUN Creatinine Ratio 18.0 RATIO (8-21 RATIO) 8 - 21 RATIO [facility] - Hematology and Cell countson 01-22-2023 Basophils (Bld) [#/Vol] Abs Baso 0.02 K/UL (0.00-0.22 K/UL) 0.00 - 0.22 K/UL [place] Basophils/100 WBC (Bld) Basophil 0.50 % (0-1 %) 0 - 1 % [facility] [place] Differential cell count method Nom (Bld) Diff Type AUTO DIFF (Reference Range: not available) [facility] [place] Eosinophils (Bld) [#/Vol] Abs Eos 0.07 K/UL (0-0.45 K/UL) 0 - 0.45 K/UL [place] Eosinophils/100 WBC (Bld) Eosinophil 1.80 % (0-3 %) 0 - 3 % [facility] [place] Erythrocyte distribution width (RBC) [Entitic vol] RDW SD 38.7 FL (37.0-54.0 FL) 37.0 - 54.0 FL [place] Erythrocyte distribution width (RBC) [Ratio] RDW CV 12.6 % (11.7-15.0 %) 11.7 - 15.0 % [facility] [place] Hematocrit (Bld) [Volume fraction] HCT 38.6 % L (41-50 %) Low 41 - 50 % [place] Hemoglobin (Bld) [Mass/Vol] HGB 13.1 GM/DL L (13.5-16.5 GM/DL) Low 13.5 - 16.5 GM/DL [facility] Immature granulocytes (Bld) [#/Vol] Abs Imm Neut 0.00 K/UL (0.0-0.1 K/UL) 0.0 - 0.1 K/UL [facility] Lymphocytes (Bld) [#/Vol] Abs Lymph 1.08 K/UL L (1.2-3.2 K/UL) Low 1.2 - 3.2 K/UL [facility] Lymphocytes/100 WBC (Bld) Lymphocyte 28.50 % (20-40 %) 20 - 40 % [facility] MCH (RBC) [Entitic mass] MCH 29.2 PG (26-34 PG) 26 - 34 PG [facility] MCHC (RBC) [Mass/Vol] MCHC 33.9 % (31-37 %) 31 - 37 % [facility] MCV (RBC) [Entitic vol] MCV 86.0 FL (80-100 FL) 80 - 100 FL [facility] Monocytes (Bld) [#/Vol] Abs [place] 0.32 K/UL (0-0.8 K/UL) 0 - 0.8 K/UL [facility] Monocytes/100 WBC (Bld) Monocyte 8.40 % H (0-8 %) High 0 - 8 % [facility] Neutrophils (Bld) [#/Vol] Abs.Neut.Calculated 2.30 K/UL (Reference Range: not available) Performed at [address] [address] [facility] Neutrophils (Bld) [#/Vol] Abs Neut 2.30 K/UL (1.8-7.7 K/UL) 1.8 - 7.7 K/UL [facility] Neutrophils.immature/ 100 WBC (Bld) Immature Neut % 0.00 % (0.0-1.0 %) 0.0 - 1.0 % [facility] Nucleated RBC/100 WBC (Bld) [Ratio] NRBCs 0 /100 WBC (0 /100 WBC) [facility] Platelet mean volume (Bld) [Entitic vol] MPV 11.3 CU (7.0-12.6 CU) 7.0 - 12.6 CU [facility] [place] Platelets (Bld) [#/Vol] PLT 156 K/UL (150-450 K/UL) 150 - 450 K/UL [facility] [place] RBC (Bld) [#/Vol] RBC 4.49 M/UL L (4.5 -5.5 M/UL) Low 4.5 - 5.5 M/UL [facility] [place] Segmented neutrophils/100 WBC (Bld) Granulocyte 60.80 % (50-70 %) 50 - 70 % [facility] [place] WBC (Bld) [#/Vol] WBC 3.8 K/UL L (4.5- 11.0 K/UL) Low 4.5 - 11.0 K/UL [facility] [place] No Panel Informationon 01-22 XR Chest 2 Views (PA and lat) (Reference Range: not available) *FINAL Date of Service: 01/22/2023 20:03 Adm #: [id number] Reading Dr:BRYAN BOLANOS Signoff Dr: BRYAN BOLANOS PROCEDURE: CHEST 2 VIEW - WXR 0020 REASON FOR EXAM: cp RESULT: Patient Name: HOSEA ALVAREZ STUDY: CHEST 2 VIEW 01/22/2023 8:03 pm INDICATION: Chest pain after drinking caffeine COMPARISON: 09/05/2021 ACCESSION NUMBER(S): [id number] ORDERING CLINICIAN: ELVIRA MCNALLY TECHNIQUE: PA and lateral views of the chest were acquired. FINDINGS: The cardiac size is at the upper range of normal with tortuosity of the descending thoracic aorta. The lungs are clear without pleural abnormality. IMPRESSION: No acute cardiopulmonary disease. Dictation workstation: [id number] Original Interpreting Physician: BRYAN BOLANOS M.D. Original Transcribed by/Date: MMODAL Jan 22 2023 7:26P Original Electronically Signed by/Date: BRYAN BOLANOS M.D. Jan 22 2023 8:36P Addendum Interpreting Physician: Addendum Transcribed by/Date: NO ADDENDUM Addendum Electronically Signed by/Date: [facility] Troponin T Delta No previous result Performed at [address] [address] (0-4 ) 0 - 4 [facility] ED NOTEon 01-21-2023 ED NOTE HNO ID: [id number] Author: Ira Vuong RN Service: ? Author Type: Registered Nurse Type: ED Notes Filed: 01/21/2023 7:16 PM Note Text: Pt to ed for heart palpations. Pt states out of metoprolol. [facility] EKGon 01-21-2023 Electrocardiogram Ventricular Rate : 9 2 BPM Atrial Rate : 92 BPM P-R Interval : 154 ms QRS Duration : 94 ms Q-T Interval : 338 ms QTC Calculation(Bazett) : 417 ms Calculated P [place] : 32 degrees Calculated R [place] : -30 degrees Calculated T [place] : 23 degrees NORMAL SINUS RHYTHM POSSIBLE LEFT ATRIAL ENLARGEMENT LEFT AXIS DEVIATION ABNORMAL ECG WHEN COMPARED WITH ECG OF 19-JAN-2023 01:22, NO SIGNIFICANT CHANGE WAS FOUND Confirmed by ELIGN FISHER MD ([id number]), web editor YASMIN GAUTHIER ([id number]) on 01/24/2023 8:16:52 AM NAME : HOSEA ALVAREZ PID : [id number] : 1970 Gender : Male Race : ORD : Procedure Date : Jan 21 2023 18:42:25 Edit Date : Jan 24 2023 08:16:55 Diagnosis: NORMAL SINUS RHYTHM POSSIBLE LEFT ATRIAL ENLARGEMENT LEFT AXIS DEVIATION ABNORMAL ECG WHEN COMPARED WITH ECG OF 19-JAN-2023 01:22, NO SIGNIFICANT CHANGE WAS FOUND Confirmed by ELGIN FISHER MD ([id number]), web editor YASMIN GAUTHIER ([id number]) on 01/24/2023 8:16:52 AM Test Reason : Location : : [facility] Overread By : ELGIN FISHER MD Edited By : YASMIN GAUTHIER Referred By : , Acquired by : PAULINO JETT Normal [facility] ECG COMPLETEon 01-19-2023 ECG COMPLETE Ventricular Rate : 7 4 BPM Atrial Rate : 74 BPM P-R Interval : 170 ms QRS Duration : 104 ms Q-T Interval : 378 ms QTC Calculation(Bazett) : 419 ms Calculated P [place] : 19 degrees Calculated R [place] : -10 degrees Calculated T [place] : 9 degrees NORMAL SINUS RHYTHM ST ELEVATION, CONSIDER EARLY REPOLARIZATION, PERICARDITIS, OR INJURY ABNORMAL ECG WHEN COMPARED WITH ECG OF 08-SEP-2021 13:41, NO SIGNIFICANT CHANGE WAS FOUND confirmed 0123 Confirmed by MD SANCHEZ MICHELLE ([id number]), web editor CATHI PERALTA ([id number]) on 01/19/2023 10:59:58 AM NAME : HOSEA ALVAREZ PID : [id number] : 1970 Gender : Male Race : ORD : [id number] Procedure Date : Jan 19 2023 01:22:13 Edit Date : Jan 19 2023 11:00:00 Diagnosis: NORMAL SINUS RHYTHM ST ELEVATION, CONSIDER EARLY REPOLARIZATION, PERICARDITIS, OR INJURY ABNORMAL ECG WHEN COMPARED WITH ECG OF 08-SEP-2021 13:41, NO SIGNIFICANT CHANGE WAS FOUND confirmed 0123 Confirmed by MD SANCHEZ MICHELLE ([id number]), web editor CATHI PERALTA ([id number]) on 01/19/2023 10:59:58 AM Test Reason : Chest Pain Location : 80 : [facility] Overread By : MD SANCHEZ MICHELLE Edited By : CATHI PERLATA Referred By : , Acquired by : NAJMA DONOVAN [facility] ED NOTEon 01-19-2023 ED NOTE HNO ID: [id number] Author: Bhumika Franco RN Service: ? Author Type: Registered Nurse Type: ED Notes Filed: 01/19/2023 6:42 AM Note Text: Discharge instructions and follow up care were reviewed, pt verbalized understanding. Pt left ED with steady gait by himself. [facility] ED NOTE HNO ID: [id number] Author: Bhumika Franco RN Service: ? Author Type: Registered Nurse Type: ED Notes Filed: 01/19/2023 5:56 AM Note Text: Pt observed out of the bed with pants down by the sink. Pt stated I had to pee so used urinal and throw it into the sink. Reminded to use call light for assistance. [facility] ED NOTE HNO ID: [id number] Author: Bhumika Franco RN Service: ? Author Type: Registered Nurse Type: ED Notes Filed: 01/19/2023 4:30 AM Note Text: Pt was observed getting out of the bed. Pt Took his long sleeve t-shirt and put it on top of IV and BP cuff. Pt was reminded to use the call light for assistance [facility] ED NOTE HNO ID: [id number] Author: Bhumika Franco RN Service: ? Author [...] sample. Pt denies the need of urinating. [facility] ED PROV NOTEon 01-19-2023 ED PROV NOTE HNO ID: [id number] Author: Lily Dacosta PA-C Service: Emergency Medicine Author Type: Physician Manager Image Type: ED Provider Notes Filed: 01/19/2023 6:09 AM Note Text: ED Provider Note Patient Name: Hosea Alvarez : 1970 SERVICE DATE: 01/19/23 History Patient presents with: Back Pain Patient 52-year-old male brought in by EMS for alcohol abuse/intoxication patient has multiple complaints patient is vomiting in the sink at time of initial consultation History provided by: Patient american sign language interpreter used: No Chest Pain Pain location: Substernal [...] Allergen Reactions Caffeine Rash Other reaction(s): Shakiness [place] GI Upset, Rash, Vomiting Statused by Person: Derrick Imelda.(Altaf Carter2) on Statused by Person: SRAVANTHI NG([facility]) on Statused by Person: DerrickImelda lino.(Altaf Carter2) on Statused by Person: SRAVANTHI MONGE([facility]) on Amlodipine Swelling Amoxicillin GI Upset Chocolate Flavor GI Upset Ciprofloxacin Other: See Comments Diazepam Unknown Fentanyl Mental Status Change Lorazepam GI Upset Other reaction(s): Abdominal Pain Seasonal Allergies GI Upset Abdominal pain Abdominal pain Serotonin Hcl Mental Status Change Other reaction(s): 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 (more content not included)... Normal [facility] HIGH SENSITIVITY TROPONIN T (SECOND)on 01-19-2023 HIGH SENSITIVITY SITA 6 ng/L Normal <12 [facility] Comment on above: Order Comment: [facility] Type: BLOOD SPECIMENOrdering Facility: [facility] Address: [address] [address] Result Comment: When assessing risk for acute [...] 30 day MACE. Performed By: #### L [id number] ####[facility]ORY[facility] [id number] [address] [place] Urinalysis complete panel (U )on 01-19-2023 Bacteria LM.HPF (Urine sed) [#/Area] None Seen Normal None Seen [facility] Comment on above: Order Comment: Ariella [facility] Type: URINE SPECIMENOrdering Facility: [facility] Address: [address] [place] [address] Performed By: #### 2 4356-8 ####[facility] [id number] [place] [address] [place] Bilirubin Ql (U) Negative Normal Negative [facility] Comment on above: Order Comment: Speci men Type: URINE SPECIMENOrdering Facility: [facility] Address: [address] [address] Performed By: #### 2 4356-8 ####[facility]ORATORYCLIA [id number] [place] [address] [place] Clarity (Unsp spec) Clear Normal Clear [facility] Comment on above: Order Comment: Speci men Type: URINE SPECIMENOrdering Facility: [facility] Address: [address] [place] [address] Performed By: #### 2 4356-8 ####EUCLID LABORATORYCLIA [id number] [address] [place] Color (U) Yellow Normal Yellow [facility] Comment on above: Order Comment: Speci men Type: URINE SPECIMENOrdering Facility: [facility] Address: [address] [address] Performed By: #### 2 4356-8 ####EUCLID LABORATORYCLIA [id number] [address] [place] Epithelial cells LM.HPF (Urine sed) [#/Area] None Seen Normal [facility] Comment on above: Order Comment: Speci men Type: URINE SPECIMENOrdering Facility: [facility] Address: [address] [address] Performed By: #### 2 4356-8 ####EUCLID LABORATORYCLIA [id number] [address] [place] Glucose Test strip (U) [Mass/Vol] Negative Normal Negative [facility] Comment on above: Order Comment: Speci men Type: URINE SPECIMENOrdering Facility: [facility] Address: [address] [address] Performed By: #### 2 4356-8 ####EUCLID LABORATORYCLIA [id number] [place] [address] [place] Hemoglobin Ql (U) Negative Normal Negative, Trace [facility] Comment on above: Order Comment: Speci men Type: URINE SPECIMENOrdering Facility: [facility] Address: [address] [address] Performed By: #### 2 4356-8 ####EUCLID LABORATORYCLIA [id number] [place] [address] [place] Ketones Ql (U) Negative Normal Negative [facility] Comment on above: Order Comment: Speci men Type: URINE SPECIMENOrdering Facility: [facility] Address: [address] [address] Performed By: #### 2 4356-8 ####EUCLID LABORATORYCLIA [id number] [address] [place] Leukocyte esterase Test strip Ql (U) Negative Normal Negative [facility] Comment on above: Order Comment: Speci men Type: URINE SPECIMENOrdering Facility: [facility] Address: [address] [place] [address] Performed By: #### 2 4356-8 ####EUCLID LABORATORYCLIA [id number] [place] [address] [place] Nitrite Ql (U) Negative Normal Negative [facility] Comment on above: Order Comment: Speci men Type: URINE SPECIMENOrdering Facility: [facility] Address: [address] [place] [address] Performed By: #### 2 4356-8 ####EUCLID LABORATORYCLIA [id number] [place] [address] [place] pH (U) 6.0 [pH] Normal 5.0-8.0 [facility] Comment on above: Order Comment: Speci men Type: URINE SPECIMENOrdering Facility: [facility] Address: [address] [address] Performed By: #### 2 4356-8 ####EUCLID LABORATORYCLIA [id number] [address] [place] Protein (U) [Mass/Vol] Negative Normal Negative [facility] Comment on above: Order Comment: Speci men Type: URINE SPECIMENOrdering Facility: [facility] Address: [address] [place] [address] Performed By: #### 2 4356-8 ####EUCLID LABORATORYCLIA [id number] [place] [address] [place] RBC LM.HPF (Urine sed) [#/Area] 0-3 /HPF Normal 0-3 /HPF [facility] Comment on above: Order Comment: Speci men Type: URINE SPECIMENOrdering Facility: [facility] Address: [address] [place] [address] Performed By: #### 2 4356-8 ####EUCLID LABORATORYCLIA [id number] [address] [place] Specific gravity (U) [Rel density] <=1.005 Low 1.005-1.030 [facility] Comment on above: Order Comment: Speci men Type: URINE SPECIMENOrdering Facility: [facility] Address: [address] [place] [address] Performed By: #### 2 4356-8 ####EUCLID LABORATORYCLIA [id number] [address] [place] Urobilinogen Ql (U) 0.2 EU/dL Normal 0.2-1.0 EU/dL [facility] Comment on above: Order Comment: Speci men Type: URINE SPECIMENOrdering Facility: [facility] Address: [address] [place] [address] Performed By: #### 2 4356-8 ####EUCLID LABORATORYCLIA [id number] [address] [place] WBC LM.HPF (Urine sed) [#/Area] 0-5 /HPF Normal 0-5 /HPF [facility] Comment on above: Order Comment: Speci men Type: URINE SPECIMENOrdering Facility: [facility] Address: [address] [place], [place] [id number] Performed By: #### 2 4356-8 ####PHILLIP LABORATORYCLIA [id number] [place] [address] [place] APTTon 01-14-2023 aPTT Coag (Bld) [Time] 32.8 s Normal 26.0-39.0 [facility] Comment on above: Performed By: #### C D:[id number], 394073, 673420, 057350, 001460, 8881740, 434335, 367497 ####[facility] [address]mt[address] [place] [address] Medical Director: Roberto Anand MD AUTO DIFFon 01-14-2023 Baso Count 0.01 x1000 Normal 0.00-0.20 [facility] Comment on above: Performed By: #### C D:[id number], 956662, 652868, 954587, 456677, 4392015, 829861, 340550 ####[facility] [address]ngmsm[address] [place] [address] Medical Director: Roberto Anand MD Basos % 0.3 % Normal [facility] Comment on above: Performed By: #### C D:614507068, 776518, 646462, 300218, 527353, 7307120, 539788, 625118 ####[facility] Ugmtugsy[address] [place] [address] Medical Director: Roberto Anand MD Eos Count 0.08 x1000 Normal 0.00-0.50 [facility] Comment on above: Performed By: #### C D:644782235, 177070, 319332, 899663, 010455, 8887273, 407859, 448761 ####[facility] Ckkyogvm19412 [place], [place] [id number]) [phone] Director: Roberto Anand MD Eosinophils/100 WBC (Bld) 2.4 % Normal [facility] Comment on above: Performed By: #### C D:114995543, 141935, 262245, 645560, 654704, 4171865, 186562, 389666 ####[facility] [address]knkdhi[address] [place] [address] Medical Director: Roberto Anand MD Lymph Count 0.94 x1000 Low 1.20-4.80 [facility] Comment on above: Performed By: #### C D:654181160, 388685, 529329, 695281, 372636, 2898319, 250564, 602434 ####[facility] [address]oc[address]jbgu[address] [place] [address] Medical Director: Roberto Anand MD Lymphocytes/100 WBC (Bld) 29.8 % Normal [facility] Comment on above: Performed By: #### C D:267954306, 642017, 095196, 509120, 158685, 9688561, 759549, 946564 ####[facility] [address]zqkrf14[address] [place] [address] Medical Director: Roberto Anand MD Wilbarger Count 0.31 x1000 Normal 0.10-1.00 [facility] Comment on above: Performed By: #### C D:195955680, 101812, 732472, 847352, 072507, 8040237, 862982, 485195 ####[facility] [address]pedxifx17599 [place] [address] Medical Director: Roberto Anand MD Monocytes/100 WBC (Bld) 9.9 % Normal [facility] Comment on above: Performed By: #### C D:458803388, 978968, 127559, 388966, 698352, 9569059, 300550, 147386 ####[facility] X[address]xzgsb07090 [place] [address] Medical Director: Roberto Anand MD Neutrophil Count (ANC) 1.81 x1000 Normal 1.40-8.80 [facility] Comment on above: Performed By: #### C D:790121817, 215979, 944875, 738574, 617337, 2170219, 119509, 029120 ####[facility] Hfprcyur60413 [place] [address] Medical Director: Roberto Anand MD Neutrophils/100 WBC (Bld) 57.6 % Normal [facility] Comment on above: Performed By: #### C D:199041294, 702222, 937937, 740836, 096462, 7070610, 194146, 093824 ####[facility] Jrbbxosv24359 [place], [place] [address]) [phone] Director: Roberto Anand MD COMPMETAon 01-14-2023 Albumin [Mass/Vol] 3.9 g/dL Normal 3.4-5.0 [place] Comment on above: Performed By: #### C D:775995511, 147128, 909513, 095955, 849877, 9668215, 799662, 234521 ####[facility] [address]jnwa[address] [place], [place] [id number]) [phone] Director: Roberto Anand MD Albumin/Globulin [Mass ratio] 1.2 {ratio} Normal [facility] Comment on above: Performed By: #### C D:606926588, 735826, 259468, 018861, 384378, 9917649, 223915, 539377 ####[facility] [address]ry[address]rzs[address] [place] [address] Medical Director: Roberto Anand MD Alk Phos 62 unit/L Normal 46-116 [facility] Comment on above: Performed By: #### C D:118931510, 778814, 365950, 582805, 124681, 4092974, 026905, 473774 ####[facility] Ebrolaon[address] [place] [address] Medical Director: Roberto Anand MD Bilirubin [Mass/Vol] 0.60 mg/dL Normal 0.20-1.00 [facility] Comment on above: Result Comment: Use of this assay is not recommended for patients undergoing treatment with eltrombopag due to the potential for falsely elevated results. Performed By: #### C D:378227229, 719533, 923958, 582229, 380417, 4319006, 425771, 687101 ####[facility] Fr[address]cyzc936[address] [place] [address] Medical Director: Roberto Anand MD Calcium [Mass/Vol] 9.5 mg/dL Normal 8.7-10.4 [place] Comment on above: Performed By: #### C D:271602058, 602305, 225912, 865793, 393477, 1370003, 641578, 268541 ####[facility] [address]ifmlpor38334 [place] [address] Medical Director: Roberto Anand MD Chloride [Moles/Vol] 106 mmol/L Normal 98-107 [facility] Comment on above: Performed By: #### C D:257210135, 557234, 915254, 266965, 589086, 0824537, 805591, 926648 ####[facility] [address]ufqcyc[address] [place] [address] Medical Director: Roberto Anand MD CO2 [Moles/Vol] 26.0 mmol/L Normal 20.0-31.0 [facility] Comment on above: Performed By: #### C D:643144731, 838761, 277301, 833659, 247090, 8455354, 566209, 812770 ####[facility] [address]vsqbv64[address] [place] [address] Medical Director: Roberto Anand MD Creatinine [Mass/Vol] 0.9 mg/dL Normal 0.6-1.1 [facility] Comment on above: Performed By: #### C D:078696182, 071091, 341406, 640802, 430746, 4878294, 035148, 335798 ####[facility] [address]vyfbzac88[address] [place] [address] Medical Director: Roberto Anand MD GFR AA >60 Normal [facility] Comment on above: Result Comment: Afri can Dominican GFR Calc Medical judgement is necessary to [...] for drug dosing. Performed By: #### C D:022298278, 746742, 511935, 395175, 257985, 0792339, 364334, 571415 ####[facility] [address] [place] [address] Medical Director: Roberto Anand MD Globulin (S) [Mass/Vol] 3.3 g/dL Normal [facility] Comment on above: Performed By: #### C D:590812195, 740548, 617158, 692448, 256563, 3649580, 505492, 544422 ####[facility] [address] [place] [address] Medical Director: Roberto Anand MD Glomerular Filtration Rate >60 Normal [facility] Comment on above: Result Comment: Non- GFR [...] for drug dosing. Performed By: #### C D:971875478, 660429, 835026, 986720, 048959, 1726584, 167452, 119843 ####[facility] Ygnxtygw13[address] [place] [address] Medical Director: Roberto Anand MD Glucose [Mass/Vol] 98 mg/dL Normal 74-106 [place] Comment on above: Performed By: #### C D:536970958, 476172, 061864, 930992, 084719, 2381138, 122691, 624803 ####[facility] Kcopodua[address]64 [place] [address] Medical Director: Roberto Anand MD GOT 18 unit/L Normal 15-37 [facility] Comment on above: Performed By: #### C D:844352350, 714657, 891170, 362169, 157563, 7454801, 748894, 618490 ####[facility] Xyziifwz318[address] [place] [address] Medical Director: Roberto Anand MD GPT 23 unit/L Normal 10-49 [facility] Comment on above: Performed By: #### C D:350686670, 809688, 523779, 774332, 175577, 5136100, 137187, 011441 ####[facility] Zmxjqbny50377 [place] [address] Medical Director: Roberto Anand MD Osmolality [Osmolality] 276 mosm/kg Normal 275-295 [facility] Comment on above: Performed By: #### C D:617849679, 410900, 792231, 917113, 611555, 9645615, 268729, 586575 ####[facility] [address]iefv[address]100 [place] [address] Medical Director: Roberto Anand MD Potassium [Moles/Vol] 3.9 mmol/L Normal 3.5-5.1 [facility] Comment on above: Result Comment: Spec imen slightly hemolyzed. Results may be affected. Performed By: #### C D:213069265, 323112, 278194, 499360, 646275, 4428097, 184164, 656586 ####[facility] Q[address]armrlp27985 [place] [address] Medical Director: Roberto Anand MD Protein [Mass/Vol] 7.2 g/dL Normal 5.7-8.2 [place] Comment on above: Result Comment: Tota l Protein results may be increased in patients receiving dextran as a blood volume ship propeller finisher Performed By: #### C D:891228520, 812603, 560459, 165848, 168617, 8941673, 984624, 174867 ####[facility] Ynmszyae05435 [place] [address] Medical Director: Roberto Anand MD Sodium [Moles/Vol] 137 mmol/L Normal 135-145 [place] Comment on above: Performed By: #### C D:146384375, 295288, 068039, 577852, 116349, 2438103, 279348, 990408 ####[facility] [address]zyqkw[address]24 [place] [address] Medical Director: Roberto Anand MD Urea nitrogen [Mass/Vol] 19 mg/dL Normal 9-23 [facility] Comment on above: Result Comment: - Ve nipuncture should occur prior to N-Acetyl Cysteine (NAC) or Metamizole (Sulpyrine) administration due to the potential for falsely depressed results. - Blood samples from some patients with monoclonal gammopathies may produce falsely elevated results Performed By: #### C D:233059351, 348584, 118768, 391055, 741321, 4219810, 860034, 363143 ####[facility] [address]riukxs[address] [place] [address] Medical Director: oRberto Anand MD Urea nitrogen/Creatinine [Mass ratio] 21.1 mg/mg Normal [facility] Comment on above: Performed By: #### C D:[id number], 547080, 450215, 570987, 845270, 3118276, 637875, 550119 ####[facility] [address]ts[address]zwz[address] [place] [address] Medical Director: Roberto Anand MD ED Adult [...] Normal Circulation : Normal Birgit Lee RN 01/14/2023 5:33 EDT Screening-General Meds Triage : Beta eduarda Accept Blood Products if Necessary : Yes Immunizations Current : Yes Last Tetanus : Unknown Status : N/A Preferred Verbal : Egyptian Birgit Lee RN 01/14/2023 5:33 EDT Depression Screening Patient able to verbalize? : Yes Feeling Down, Depressed, Hopeless : Not at all Little Interest - Pleasure in Activities : Not at all Initial Depression Screen Score : 0 Depression Screening Score 0 : No IP Pt being evaluated or treated for BH conditions : No Birgit Lee RN 01/14/2023 5:33 EDT Screening-Safety Abuse/Violence Concerns? : Patient denies Does the patient have a medically restricted extremity? : No Birgit Lee RN - 01/14/2023 5:33 EDT Problem List Problem List obtained from : Patient Birgit Lee RN - 01/14/2023 5:33 EDT (As Of: 01/14/2023 05:34:14 EDT) Problems(Active) Aneurysm (SNOMED CT :4050272387 ) Name of Problem: Aneurysm ; Recorder: Ellie Lyles RN; Confirmation: Confirmed ; Classification: Medical ; Code: 8505092828 ; Contributor System: NewsBreak ; Last Updated: 04/27/2021 20:57 EDT ; Life Cycle Date: 04/27/2021 ; Life Cycle Status: Active ; Vocabulary: SNOMED CT Anxiety (SNOMED CT :68444091 ) Name of Problem: Anxiety ; Recorder: Elvira Monroe MA; Confirmation: Confirmed ; Classification: Medical ; Code: 18880888 ; Contributor System: CFX BATTERYChart ; Last Updated: 03/10/2021 15:03 EDT ; Life Cycle Date: 03/10/2021 ; Life Cycle Status: Active ; Vocabulary: SNOMED CT GERD (gastroesophageal reflux disease) (SNOMED CT :657192766 ) Name of Problem: GERD (gastroesophageal reflux disease) ; Recorder: Elvira Monroe MA; Confirmation: Confirmed ; Classification: Medical ; Code: 961617855 ; Contributor System: CFX BATTERYChart ; Last Updated: 03/10/2021 15:04 EDT ; Life Cycle Date: 03/10/2021 ; Life Cycle Status: Active ; Vocabulary: SNOMED CT Hypertension (SNOMED CT :8903406448 ) Name of Problem: Hypertension ; Recorder: Elvira Monroe MA; Confirmation: Confirmed ; Classification: Medical ; Code: 9087505102 ; Contributor System: CFX BATTERYChart ; Last Updated: 03/10/2021 15:04 EDT ; Life Cycle Date: 03/10/2021 ; Life Cycle Status: Active ; Vocabulary: SNOMED CT Irregular heart rhythm (SNOMED CT :535152362 ) Name of Problem: Irregular heart rhythm ; Recorder: Elvira Monroe MA; Confirmation: Confirmed ; Classification: Medical ; Code: 749677149 ; Contributor System: PowerChart ; Last Updated: 03/10/2021 15:04 EDT ; Life Cycle Date: 03/10/2021 ; Life Cycle Status: Active ; Vocabulary: SNOMED CT Renal stone (SNOMED CT :525446339 ) Name of Problem: Renal stone ; Recorder: Ellie Lyles RN; Confirmation: Confirmed ; Classification: Medical ; Code: 435711788 ; Contributor System: CFX BATTERYChart ; Last Updated: 04/27/2021 20:57 EDT ; Life Cycle Date: 04/27/2021 ; Life Cycle Status: Active ; Vocabulary: SNOMED CT Sleep apnea (SNOMED CT :507430224 ) Name of Problem: Sleep apnea ; Recorder: Elvira Monroe MA; Confirmation: Confirmed ; Classification: Medical ; Code: 237016401 ; Contributor System: PowerChart ; Last Updated: 03/10/2021 15:04 EDT ; Life Cycle Date: 03/10/2021 ; Life Cycle Status: Active ; Vocabulary: SNOMED CT Diagnoses(Active) Palpitations Date: 01/14/2023 ; Diagnosis Type: Reason For Visit ; Confirmation: Confirmed ; Clinical Dx: Palpitations ; Classification: Medical ; Clinical Service: Non-Specified ; Code: PNED ; Probability: 0 ; Diagnosis Code: [id number] Procedure History ED Devices Present on Arrival [...] COVID-19 ind (more content not included)... Normal [facility] ED Discharge Educationon ED Discharge Education Cardiovascular [...] caffeine, or nicotine. Some prescription medicines and wobk-gvn-pwgbqss medicines can also cause heart palpitations. Nearly [...] Ask your doctor whether you can take hzpo-cdm-nlxslfm medicines (such as decongestants). These may cause [...] irregular heartbeat. After you call 911, the annealing furnace operator may tell you to chew 1 [...] Where can you learn more? Go to [email or web address].n et/patientEd Enter R508 in the search box to learn more about Palpitations: Care Instructions. Current as of: October 02, 2021 Content Version: 13.3 ? [employer]. Care instructions adapted under license by your healthcare professional. If you have questions about a medical condition or this instruction, always ask your healthcare professional. [employer] disclaims any warranty or liability for your use of this information. Normal [facility] ED Emergency Severity Index Adult-Texton 01-14-2023 ED Emergency Severity Index Adult-Text WILMAN - Adult Entered On: 01/14/2023 5:22 EDT Performed On: 01/14/2023 5:22 EDT by Planicka RN, Birgit WILMAN DCP GENERIC CODE Visit Reason : PALPITATIONS Tracking Triage Date/Time : 01/14/2023 05:22 EDT Tracking Reg Status : Requested Tracking Acuity : 2-Emergent Tracking Group : [facility] Tracking Birgit Lee RN - 01/14/2023 5:22 EDT Normal [facility] ED Nrsing Adlt Triage Sep Sc rning - Texton 01-14-2023 ED Nrsing Adlt Triage Sep Scrning - Text ED Nursing Adult Triage Sepsis Screening Tool Entered On: 01/14/2023 5:33 EDT Performed On: 01/14/2023 5:33 EDT by Birgit Lee RN Adult Sepsis Screening Sepsis Infection Screening ED : No Birgit Lee RN - 01/14/2023 5:33 EDT Normal [facility] ED Patient Summaryon 023 ED Patient Summary [facility] Emergency Department Discharge Instructions [id number] [place] [address] (Patient Copy) Name: HOSEA ALVAREZ : 1970 Allergies: MiraLax Diagnosis: Heart palpitations Visit Date: 01/14/2023 05:22:11 Current Date Time: 01/14/2023 11:40:16 Address: [address] [place] [address] Phone: [phone] Primary Care Provider: Name: VIRAL AMADO Phone: [phone] Emergency Department Care Providers: Primary Physician: NADIRA HAZEL MD Thank you for choosing [facility] for your emergency care. You are very important to us. Our goal is to demonstrate our high quality medical care, and provide you with a very good patient experience. You may receive a survey about our service. Please take the time to complete the survey and return it so we can continue to enhance our service. Thank you again for allowing the [facility] Emergency Department to care for your medical needs. If you have questions about your care or follow up information please contact us at [phone]. Follow-Up Instructions HOSEA ALVAREZ has been given these follow-up instructions: With: Address: When: CHRISTY MANNING, Oncology/Hematology [address] [facility], [place] [phone] Business (1) Within 3 to 5 days With: Address: When: RADHA GUADALUPE, Cardiology [address] [facility], [address] [place] [address] Business (1) Within 3 to 5 days With: Address: When: DR FAUSTINA HOYT ON [place] [address] [facility] [address] [place] [phone] Business (1) Within 3 to 5 days [...] caffeine, or nicotine. Some prescription medicines and dgfs-cmx-gfsusxg medicines can also cause heart palpitations. Nearly [...] Ask your doctor whether you can take hsnp-ppa-tbmletd medicines (such as decongestants). These may cause [...] the o (more content not included)... Normal [facility] ED Physician Reporton 2022 ED Physician Report [...] to fill the metoprolol because he has hng-fl-jphfe Medicaid and states that he cannot fill prescriptions on his Medicaid in [place]. No chest pain. Patient's heart rate currently is 80 bpm and regular. Patient states he also has history of mitral valve prolapse and a thoracic aneurysm which is being monitored by his doctor and [place].. Review of Systems Constitutional symptoms: Negative except [...] history: No past history of procedure (CPT4 25561).. Family history: Pancreatic cancer Other Ovarian cancer.. [...] NORMAL Fr (more content not included)... Normal [facility] ED Pre-Arrival Formon 2022 ED Pre-Arrival Form Pre-Arrival Summary Name: GEREMIAS WHEN CLEAN, Current Date: 01/14/2023 05:22:34 EDT Gender: Date of : Age: Pre-Arrival Type: EMS ETA: 01/14/2023 05:45:00 EDT Primary Care Physician: Presenting Problem: Pre-Arrival User: Birgit Lee RN Referring Source: Location: 1 [facility] Emergency Department [address] [place] [address]. [place] [address] Notes: Vital Signs: Doctor Call Back: DNR Status: Miscellaneous Issues: Normal [facility] ED Progress Noteon ED Progress Note Pt arrived from home [...] Pt. left ambulatory with steady gait. Normal [facility] ED Triage Adult-Texton 01-14 ED Triage Adult-Text ED Triage Entered O n: 01/14/2023 5:36 EDT Performed On: 01/14/2023 5:36 EDT by Grupo Jay RN Triage (As Of: 01/14/2023 05:36:55 EDT) Problems(Active) Aneurysm (SNOMED CT :1842648606 ) Name of Problem: Aneurysm ; Recorder: Ellie Lyles RN; Confirmation: Confirmed ; Classification: Medical ; Code: 1882078831 ; Contributor System: PowerChart ; Last Updated: 04/27/2021 20:57 EDT ; Life Cycle Date: 04/27/2021 ; Life Cycle Status: Active ; Vocabulary: SNOMED CT Anxiety (SNOMED CT :62463257 ) Name of Problem: Anxiety ; Recorder: Elvira Monroe MA; Confirmation: Confirmed ; Classification: Medical ; Code: [id number] ; Contributor System: PowerChart ; Last Updated: 03/10/2021 15:03 EDT ; Life Cycle Date: 03/10/2021 ; Life Cycle Status: Active ; Vocabulary: SNOMED CT GERD (gastroesophageal reflux disease) (SNOMED CT :351530302 ) Name of Problem: GERD (gastroesophageal reflux disease) ; Recorder: Elvira oMnroe MA; Confirmation: Confirmed ; Classification: Medical ; Code: [id number] ; Contributor System: PowerChart ; Last Updated: 03/10/2021 15:04 EDT ; Life Cycle Date: 03/10/2021 ; Life Cycle Status: Active ; Vocabulary: SNOMED CT Hypertension (SNOMED CT :4900926886 ) Name of Problem: Hypertension ; Recorder: Elvira Monroe MA; Confirmation: Confirmed ; Classification: Medical ; Code: [id number] ; Contributor System: PowerChart ; Last Updated: 03/10/2021 15:04 EDT ; Life Cycle Date: 03/10/2021 ; Life Cycle Status: Active ; Vocabulary: SNOMED CT Irregular heart rhythm (SNOMED CT :711265661 ) Name of Problem: Irregular heart rhythm ; Recorder: Elvira Monroe MA; Confirmation: Confirmed ; Classification: Medical ; Code: [id number] ; Contributor System: PowerChart ; Last Updated: 03/10/2021 15:04 EDT ; Life Cycle Date: 03/10/2021 ; Life Cycle Status: Active ; Vocabulary: SNOMED CT Renal stone (SNOMED CT :657671062 ) Name of Problem: Renal stone ; Recorder: Ellie Lyles RN; Confirmation: Confirmed ; Classification: Medical ; Code: [id number] ; Contributor System: NewsBreak ; Last Updated: 04/27/2021 20:57 EDT ; Life Cycle Date: 04/27/2021 ; Life Cycle Status: Active ; Vocabulary: SNOMED CT Sleep apnea (SNOMED CT :143950965 ) Name of Problem: Sleep apnea ; Recorder: Elvira Monroe MA; Confirmation: Confirmed ; Classification: Medical ; Code: [id number] ; Contributor System: CFX BATTERYChart ; Last Updated: 03/10/2021 15:04 EDT ; Life Cycle Date: 03/10/2021 ; Life Cycle Status: Active ; Vocabulary: SNOMED CT Diagnoses(Active) Palpitations Date: 01/14/2023 ; Diagnosis Type: Reason For Visit ; Confirmation: Confirmed ; Clinical Dx: Palpitations ; Classification: Medical ; Clinical Service: Non-Specified ; Code: PNED ; Probability: 0 ; Diagnosis Code: [id number] (As Of: 01/14/2023 05:36:55 EDT) Allergies (Active) [...] Jay RN - 01/14/2023 5:36 EDT Normal [facility] HEMOon 01-14-2023 DIFF? No Normal [facility] Comment on above: Performed By: #### C D:[id number], 552721, 526029, 215779, 257344, 8883928, 400987, 248762 ####[facility] [address] [place] [address] Medical Director: Roberto Anand MD Erythrocyte distribution width (RBC) [Ratio] 13.5 % Normal 11.5-14.5 [facility] Comment on above: Performed By: #### C D:[id number], 966478, 699393, 610480, 543350, 0203009, 002140, 322768 ####[facility] [address] [place] [address] Medical Director: Roberto Anand MD Hematocrit (Bld) [Volume fraction] 41.1 % Normal 41.0-52.0 [facility] Comment on above: Performed By: #### C D:[id number], 538014, 933205, 627332, 011172, 3309810, 326366, 252846 ####[facility] [address] [place] [address] Medical Director: Roberto Anand MD Hemoglobin (Bld) [Mass/Vol] 13.9 g/dL Normal 13.5-17.5 [facility] Comment on above: Performed By: #### C D:[id number], 701865, 784100, 480559, 830084, 4768245, 646092, 036548 ####[facility] [address] [place] [address] Medical Director: Roberto Anand MD Instr WBC 3.1 Normal [facility] Comment on above: Performed By: #### C D:[id number], 780060, 397721, 542895, 630480, 6491562, 997150, 812431 ####[facility] [address] [place] [address] Medical Director: Roberto Anand MD MCH (RBC) [Entitic mass] 29.0 pg Normal 27.0-34.0 [facility] Comment on above: Performed By: #### C D:[id number], 405797, 267728, 491924, 464712, 0641573, 961590, 106987 ####[facility] [address] [place] [address] Medical Director: Roberto Anand MD MCHC (RBC) [Mass/Vol] 34.0 g/dL Normal 32.0-37.0 [facility] Comment on above: Performed By: #### C D:[id number], 510027, 529971, 172324, 510705, 4791210, 706783, 393286 ####[facility] [address] [place] [address] Medical Director: Roberto Anand MD MCV (RBC) [Entitic vol] 85.3 fL Normal 80.0-100.0 [facility] Comment on above: Performed By: #### C D:[id number], 032055, 359484, 880597, 656987, 1625241, 869458, 209471 ####[facility] [address] [place] [address] Medical Director: Roberto Anand MD MDW 18.63 Normal 13.98-20.00 [facility] Comment on above: Result Comment: MDW Interpretation: [...] risk of Sepsis. Performed By: #### C D:[id number], 407659, 202817, 836550, 447976, 5116333, 000250, 663562 ####[facility] [address] [place] [address] Medical Director: Roberto Anand MD Nucleated RBC 0 /100WBC Normal [facility] Comment on above: Performed By: #### C D:[id number], 224243, 134656, 369883, 013740, 4366951, 926720, 638335 ####[facility] [address] [place] [address] Medical Director: Roberto Anand MD Platelet 130 x10 Low 150-450 [facility] Comment on above: Performed By: #### C D:[id number], 508170, 975288, 926840, 227269, 2117806, 954521, 358321 ####[facility] [address] [place] [address] Medical Director: Roberto Anand MD Platelet mean volume (Bld) [Entitic vol] 8.8 fL Normal 7.4-10.4 [facility] Comment on above: Performed By: #### C D:[id number], 365996, 483917, 545171, 279919, 9280055, 666642, 334417 ####[facility] [address] [place] [address] Medical Director: Roberto Anand MD RBC 4.81 x10 Normal 4.70-6.10 [facility] Comment on above: Result Comment: Note : RBC morphology is normal unless otherwise stated. Evaluation performed only if differential is requested. Performed By: #### C D:[id number], 893267, 015630, 486919, 345322, 9179498, 303257, 686854 ####[facility] [address] [place] [address] Medical Director: Roberto Anand MD WBC 3.1 x10 Low 4.5-11.0 [facility] Comment on above: Performed By: #### C D:[id number], 278899, 918265, 936920, 072621, 0702938, 241638, 343118 ####[facility] [address] [place] [address] Medical Director: Roberto Anand MD MG LEVELon 01-14-2023 Magnesium [Mass/Vol] 1.8 mg/dL Normal 1.6-2.6 [facility] Comment on above: Performed By: #### C D:[id number], 410082, 365620, 312473, 292083, 9571974, 074141, 490649 ####[facility] [address] [place] [address] Medical Director: Roberto Anand MD PT INRon 01-14-2023 INR Coag (PPP) [Relative time] 1.0 {INR} Normal [facility] Comment on above: Result Comment: INR Reference Range: Normal reference range for INR on patients not on anticoagulant therapy: 0.9-1.1 General therapeutic range for patients on anticoagulant therapy: 2.0-3.5 Performed By: #### C D:[id number], 128475, 875922, 729372, 823200, 0243720, 613802, 189168 ####[facility] [address] [place] [address] Medical Director: Roberto Anand MD Protime Patient 11.2 seconds Normal 9.8-13.4 [facility] Comment on above: Performed By: #### C D:[id number], 176921, 417655, 283376, 387144, 4564252, 160641, 563614 ####[facility] [address] [place] [id number] Medical Director: Roberto Anand MD Pharmacy Clinical Interventi ons-Texton 01-14-2023 Pharmacy Clinical Interventions-Text Pharmacy Clinical Interventions Entered On: 01/14/2023 6:56 EDT Performed On: 01/14/2023 6:56 EDT [facility] Intervention Type Pharmacy : Medication history Pharmacy Order Initiated By : Pharmacist Clinical Importance Pharmacy : Potentially severe Prescriber Response Pharmacy : Accepted Patient Clinical Outcome Pharmacy : Not applicable Pharmacist Intervention Time : 5 Martha Jenniffer carver - 01/14/2023 6:56 EDT Med History Med History Grid Location : ED Medications reviewed with : Patient Medications added : none Medications changed : none Martha Jenniffer carver - 01/14/2023 6:56 EDT Normal [facility] SODIUM CHLORIDE SYR/VIAL 10M Bart 01-14-2023 SODIUM CHLORIDE SYR/VIAL 10ML Pharmacy Clinical Interventions Entered On: 01/14/2023 6:28 EDT Performed On: 01/14/2023 6:27 EDT by Martha Jenniffer carver Interventions Intervention Type Pharmacy : Order clarification Pharmacy Order Initiated By : Pharmacist Clinical Importance Pharmacy : Potentially major Prescriber Response Pharmacy : Accepted Patient Clinical Outcome Pharmacy : Not applicable Pharmacist Intervention Time : 5 Pharmacy Additional Information : verified w/ PA - changed metoprolol to pt's home dose 25 mg [facility] 01/14/2023 6:27 EDT Normal [facility] Comment on above: Order Comment: Perip heral Saline Lock saline lock flush per protocol. if picc line dose is 10ml; saline lock flush per protocol. if picc line dose is 10ml; THY GPon 01-14-2023 Free T4 [Mass/Vol] 1.15 ng/dL Normal 0.89-1.76 [place] Comment on above: Result Comment: - Th e anticonvulsant drug phenytoin may interfere with total and free T4 levels due to competition for TBG binding sites - Free T4 values may be decreased in patients with non-thyroidal conditions and in patients taking carbamazepine Performed By: #### C D:[id number], 293138, 676762, 188102, 364495, 6253579, 464674, 121581 ####[facility] [address] [place] [address] Medical Director: Roberto Anand MD TSH Qn 0.89 m[IU]/L Normal 0.55-4.78 [facility] Comment on above: Result Comment: - Do [...] not be tested Performed By: #### C D:[id number], 319459, 768483, 894935, 688127, 2310053, 999837, 223036 ####[facility] [address] [place] [address] Medical Director: Roberto Anand MD TROPONIN HS 0HRon 01-14-2023 Troponin HS 0 Hr 3 pg/mL Normal 3-53 [facility] Comment on above: Result Comment: Spec imens from some individuals with pathologically high gamma globulin levels may demonstrate depressed troponin values Performed By: #### C D:[id number], 410490, 047688, 344240, 640506, 9468137, 681292, 242510 ####[facility] [address] [place] [address] Medical Director: Roberto Anand MD XR CHEST PORTABLEon 01-15-20 23 XR CHEST PORTABLE EXAM: XR Chest, 1 [...] STARKS MD Signed Out: 01/14/23 06:46:04 Normal [facility] Clinical Case Managementon 0 11-23-2021 Clinical Case Management Diagnosis/Problems Assessed Bipolar 2 disorder (296.89) (F31.81) Ascending aortic aneurysm (441.2) (I71.2) ETOH abuse (305.00) (F10.10) Provider Impressions Fireperson met with patient on the phone to provide supportive counseling services related to his medical care. Patient presents as in the precontemplation stage of change and is making minimal progress on this objective. Fireperson provided empathic listening to support patient in [...] of providers mistreating people with mental illness. Fireperson notes that while Patient can do whatever he feels is necessary, Fireperson agus join him in a lawsuit against . Patient became frustrated and notes that he feels Fireperson is not doing his job if Fireperson is not going to support patient fully in this suit, at which Fireperson informed patient that while it is important for Fireperson to support patient's healthcare decisions, Fireperson's role is not to provide legal services professional or participate in legal proceedings against Fireperson's employer. Patient acknowledged this, and agreed to talk next week. Fireperson to follow up next week. Chief Complaint A telephone visit (audio only) between the patient (at the originating site) and the provider (at the distant site) was utilized to provide this telehealth service. Verbal consent was requested and obtained from HOSEA ALVAREZ on this date, 11/23/2021 03:00 PM , for a telehealth visit. Fireperson spoke with patient on the phone to [...] Nov 29 2021 4:24PM EST (Author) Normal [facility] Clinical Case Managementon 0 11-15-2021 Clinical Case Management Diagnosis/Problems Assessed Ascending aortic aneurysm (441.2) (I71.2) ETOH abuse (305.00) (F10.10) Provider Impressions Fireperson met with patient on the phone to provide case management services related to his healthcare. Patient presents as in the contemplation stage of change and is making some progress on this objective. Fireperson provided care coordination related to patient's thoracic surgery treatment team. 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 Patient requests that Fireperson reach out to the practice and ensuring that they will take him back. Patient notes Fireperson should also reach out to Ira Jara at the [facility]. Fireperson sent an email to Ms. Jara regarding this situation. Fireperson to follow up next week. Chief Complaint A telephone visit (audio only) between the patient (at the originating site) and the provider (at the distant site) was utilized to provide this telehealth service. Verbal consent was requested and obtained from HOSEA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 method. . Biotin interference may cause falsely decreased results. Patients taking a Biotin dose of up to 5 mg/day should refrain from taking Biotin for 24 hours before sample collection. Providers may contact their laboratory for further information. Performed By: #### C BCDF #### [facility] [address] [place] [address] Triage - EDon 09-05-2021 Triage - ED Chart Review: ARRIVAL INFORMATION Mode of Arrival: ambulance Agency Name: [facility] CHIEF COMPLAINT HOSEA ALVAREZ is a Male [...] BMI (kg/m2): 30.414 Calculated BSA (m2) 2.04 Lynda Coma Scale: Best Eye Response: (E4) [...] 05-Sep-2021 07:50 by Nicole Cervantes ([place]NN) Normal [facility] Troponin I, Serumon 09-05-20 21 Troponin I.cardiac [Mass/Vol] ng/mL See Below [facility] [address] [place] Work Phone: Comment on above: Reference Range: [...] is performed using different testing methodology at [facility] than at other [facility]. Direct result comparisons should only be made within the same method.. Biotin interference may cause falsely decreased results. Patients taking a Biotin dose of up to 5 mg/day should refrain from taking Biotin for 24 hours before sample collection. Providers may contact their laboratory for further information. Troponin I.cardiac [Mass/Vol] ng/mL See Below [facility] Work Phone: Comment on above: Reference Range: [...] is performed using different testing methodology at [facility] than at other [facility]. Direct result comparisons should only be [...] Ascending aortic aneurysm (441.2) (I71.2) Provider Impressions Fireperson spoke with patient on the phone to provide case management services related to his healthcare. Patient presents as in the contemplation stage of change and is making progress on this objective. Fireperson provided a brief check in with patient related to his healthcare and current visit to the ED. Patient notes that he was not feeling well so he brought himself to the ED. During the phone call, Patient made inappropriate comments, referring to Fireperson as 'sweetie', and asking if Fireperson needs a girlfriend. Patient informed that this is not the kind of conversation Fireperson would like to have with Patient, and asked how patient is feeling now. Patient notes that he is cold, and is going back inside the hospital. He is concerned about getting exposed to COVID, but also notes that he needs support with getting care. Patient agreed to speak with Fireperson further later this week. Fireperson to follow up later this week. Chief Complaint A telephone visit (audio only) between the patient (at the originating site) and the provider (at the distant site) was utilized to provide this telehealth service. Verbal consent was requested and obtained from HOSEA ALVAREZ on this date, 09/04/2021 04:00 PM , for a telehealth visit. Fireperson spoke with patient on the phone to [...] Sep 07 2021 9:14PM EST (Author) Normal [facility] Clinical Case Managementon 1 11-01-2020 Clinical Case [...] has inconsistent housing currently, but stays in [facility], and [place]. He presents frequently to the ED due [...] understanding of the ins and outs of renal social worker and medical care organizations. He has a great sense of humor, and is able to get around all of the [place] area on his bike. GIven all of this, Fireperson will provide case management services such as linkage and referral, and coordination of care related to his medical and mental health care. Fireperson will also provide supportive counseling such as empathic listening, motivational interviewing, and cognitive-behavioral techniques to support the patient in discussing his thoughts and feelings regarding his care. These services will be provided on an at least monthly basis. PADDY Trent Chief Complaint Fireperson met with patient in the community for initial assessment. This is a 51 year old White male patient currently inconsistently housed, staying in [facility] and [place] with his lady friend. 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 Patient was referred by his primary care doctor due to frequent ED visits. Patient is interested in case management services to support him in remembering and attending medical appointments. History of Present Illness Patient is currently dealing with frequent chest pains, waking up with rapid heartbeat, and anxiety. 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 Patient has been barred entry to several ED's, as well as some at [facility]. Patient does not endorse inpatient psychiatric treatment, and is not currently followed for outpatient psych (more content not included)... Normal [facility] Clinical Case Managementon 1 10-31-2020 Clinical Case Management Diagnosis/Problems Assessed Ascending aortic aneurysm (441.2) (I71.2) Renal artery stenosis (440.1) (I70.1) Acute back pain (724.5) (M54.9) Bipolar 2 disorder (296.89) (F31.81) ETOH abuse (305.00) (F10.10) Palpitations (785.1) (R00.2) Provider Impressions Fireperson spoke to patient on the phone to provide case management services related to his healthcare. Patient presents as in the precontemplation stage of change and is making minimal progress on his objectives. Fireperson provided empathic listening and care coordination services to support the patient in discussing his thoughts and feelings and his symptoms with Fireperson. Patient notes he is concerned about his vascular surgery appointment tomorrow as he believes he needs to have surgery soon. Patient also expressed concern regarding the lack of services available to people in his situation, noting that he wishes to start a homeless outreach organization. Patient also discussed conversations with the compliance department at . Fireperson agreed to meet patient later this week in person to complete psychosocial assessment. Fireperson to follow up later this week. Chief Complaint Verbal consent was requested and obtained from HOSEA ALVAREZ on this date, 08/30/2021 01:00 PM , for a telehealth visit. Fireperson spoke to patient on the phone to [...] Appointments Date/TimeProviderSpecial tySite 10/09/2021 01:45 Lily Rosales, MDCardiologyEuclid [facility] [address] Signatures Electronically signed by : STONE Trent; Sep 04 2021 4:56PM EST (Author) Normal [facility] Office Visit (Vascular Surge ry)on 08-30-2021 Follow-up [...] will not continue to offer surgery. Latha Messina APRN-LADONNA This is a shared visit. Both the Nurse Practitioner and I have had a face to face encounter with the patient today. I have reviewed the CALCINER FEEDER's encounter note, approve the documentation and provide the following information from my personal encounter with the patient. I personally took the history and examined the patient. I have formulated the plan and discussed it with the patient who understood and agreed. Tay Lott MD transportation officer [facility] Division of Vascular Surgery Co-Director, [facility] Chief Complaint The patient presents to [...] obtain - virtual visit Results/Data CT Angio [id number] [facility] Ordering Provider: TRISTON OROZCO [id number] Angio Chest(Report) FINAL REPORT Interpreted by: СВЕТЛАНА MCGOWAN DOUGLAS, DO 08/12/21 22:06 Patient Name: HOSEA ALVAREZ STUDY: CT ANGIO CHEST; 08/12/2021 9:29 pm INDICATION: CP, radiating to back, hx of thoracic aneurysm, Lie Flat: Yes . COMPARISON: 05/08/2021 ACCESSION NUMBER(S): [id number] ORDERING CLINICIAN: TRISTON OROZCO TECHNIQUE: Helical data acquisition of the chest was obtained before and after the administration of intravenous contrast, 90 mL Omnipaque 3 (more content not included)... Normal [facility] Clinical Case Managementon 1 10-30-2020 Clinical Case Management Diagnosis/Problems Assessed Ascending aortic aneurysm (441.2) (I71.2) Renal artery stenosis (440.1) (I70.1) Acute back pain (724.5) (M54.9) Bipolar 2 disorder (296.89) (F31.81) ETOH abuse (305.00) (F10.10) Palpitations (785.1) (R00.2) Provider Impressions Fireperson spoke to patient on the phone to provide case management services related to his healthcare. Patient presents as in the precontemplation stage of change and is making minimal progress on his objectives. Fireperson provided empathic listening and care coordination services to support the patient in discussing his thoughts and feelings and his symptoms with Fireperson. Patient notes he is concerned about his vascular surgery appointment tomorrow as he believes he needs to have surgery soon. Patient also expressed concern regarding the lack of services available to people in his situation, noting that he wishes to start a homeless outreach organization. Patient also discussed conversations with the compliance department at . Fireperson agreed to meet patient later this week in person to complete psychosocial assessment. Fireperson to follow up later this week. Chief Complaint Verbal consent was requested and obtained from HOSEA ALVAREZ on this date, 08/30/2021 01:00 PM , for a telehealth visit. Fireperson spoke to patient on the phone to [...] Date/TimeProviderSpecial tySite 10/09/2021 01:45 Lily Rosales [facility] [address] Signatures Electronically signed by : STONE Trent; Sep 04 2021 5:00PM EST (Author) Normal [facility] Clinical Case Management No report was sent Normal [facility] Heart Rateon 08-28-2021 Heart Rate Regular [facility] Work Phone: Office Visit (Cardiology)on 08-28-2021 Follow-up [...] ALL MEDICATION PRESCRIBED CALL FOR ANY CONCERNS [phone] Chief Complaint HOSEA ALVAREZ is being seen [...] endorsing cardiology and vascular surgery visits in [place], [place] and [place] over the past 1 year. He has had multiple ED visits and some hospitalizations with various and duplicate testing. He most recently reports going to the [facility] for a CT to evaluate his aorta. He notes compliance with medication although is taking Clonidine 'like candy and has run out of Losartan about 3 day ago. He also endorses seeing a wan support specialist and reports that he has Asperberger [...] negative for complaint. Vitals Vital Signs Recorded: [id number] 10:24AM Heart Rate80 Pulse QualityRegular Hmtoakiw996, Sitting Rmybstgjz87, Sitting Physical Exam Constitutional: alert and in [...] grade 1 (more content not included)... Normal [facility] CBC AND DIFFERENTIALon 08-24 % AUTOMATED IMMATURE GRAN Canceled Normal [facility] Comment on above: Order Comment: TEST CBC AND DIFFERENTIAL WAS CANCELLED, 08/24/2021 18:56 Result Comment: Kath ture Granulocyte Count (IG) includes promyelocytes, myelocytes and metamyelocytes but does not include bands. Percent differential counts (%) should be interpreted in the context of the absolute cell counts (cells/L). Performed By: #### C BCDF #### [facility] [address] [place] [address] % BASOPHIL Canceled Normal [facility] Comment on above: Order Comment: TEST CBC AND DIFFERENTIAL WAS CANCELLED, 08/24/2021 18:56 Performed By: #### C BCDF #### [facility] [address] [place] [address] % EOSINOPHIL Canceled Normal [facility] Comment on above: Order Comment: TEST CBC AND DIFFERENTIAL WAS CANCELLED, 08/24/2021 18:56 Performed By: #### C BCDF #### [facility] [address] [place] [address] % LYMPHOCYTE Canceled Normal [facility] Comment on above: Order Comment: TEST CBC AND DIFFERENTIAL WAS CANCELLED, 08/24/2021 18:56 Performed By: #### C BCDF #### [facility] [address] [place] [address] % MONOCYTE Canceled Normal [facility] Comment on above: Order Comment: TEST CBC AND DIFFERENTIAL WAS CANCELLED, 08/24/2021 18:56 Performed By: #### C BCDF #### [facility] [address] [place] [address] % NEUTROPHIL Canceled Normal [facility] Comment on above: Order Comment: TEST CBC AND DIFFERENTIAL WAS CANCELLED, 08/24/2021 18:56 Performed By: #### C BCDF #### [facility] [address] [place] [address] BASOPHIL Canceled Normal [facility] Comment on above: Order Comment: TEST CBC AND DIFFERENTIAL WAS CANCELLED, 08/24/2021 18:56 Performed By: #### C BCDF #### [facility] [address] [place] [address] DIFFERENTIAL Canceled Normal [facility] Comment on above: Order Comment: TEST CBC AND DIFFERENTIAL WAS CANCELLED, 08/24/2021 18:56 Performed By: #### C BCDF #### [facility] [address] [place] [address] EOSINOPHIL Canceled Normal [facility] Comment on above: Order Comment: TEST CBC AND DIFFERENTIAL WAS CANCELLED, 08/24/2021 18:56 Performed By: #### C BCDF #### [facility] [address] [place] [address] HCT Canceled Normal [facility] Comment on above: Order Comment: TEST CBC AND DIFFERENTIAL WAS CANCELLED, 08/24/2021 18:56 Performed By: #### C BCDF #### [place] [address] [place] [address] HGB Canceled Normal [facility] Comment on above: Order Comment: TEST CBC AND DIFFERENTIAL WAS CANCELLED, 08/24/2021 18:56 Performed By: #### C BCDF #### [facility] [address] [place] [address] LYMPHOCYTE Canceled Normal [facility] Comment on above: Order Comment: TEST CBC AND DIFFERENTIAL WAS CANCELLED, 08/24/2021 18:56 Performed By: #### C BCDF #### [facility] [address] [place] [address] MCHC Canceled Normal [facility] Comment on above: Order Comment: TEST CBC AND DIFFERENTIAL WAS CANCELLED, 08/24/2021 18:56 Performed By: #### C BCDF #### [facility] [address] [place] [address] MCV Canceled Normal [facility] Comment on above: Order Comment: TEST CBC AND DIFFERENTIAL WAS CANCELLED, 08/24/2021 18:56 Performed By: #### C BCDF #### [facility] [address] [place] [address] MONOCYTE Canceled Normal [facility] Comment on above: Order Comment: TEST CBC AND DIFFERENTIAL WAS CANCELLED, 08/24/2021 18:56 Performed By: #### C BCDF #### [facility] [address] [place] [address] NEUTROPHIL Canceled Normal [facility] Comment on above: Order Comment: TEST CBC AND DIFFERENTIAL WAS CANCELLED, 08/24/2021 18:56 Performed By: #### C BCDF #### [facility] [address] [place] [address] NUCLEATED RBC Canceled Normal [facility] Comment on above: Order Comment: TEST CBC AND DIFFERENTIAL WAS CANCELLED, 08/24/2021 18:56 Performed By: #### C BCDF #### [facility] [address] [place] [address] PLT Canceled Normal [facility] Comment on above: Order Comment: TEST CBC AND DIFFERENTIAL WAS CANCELLED, 08/24/2021 18:56 Performed By: #### C BCDF #### [facility] [address] [place] [address] RBC Canceled Normal [facility] Comment on above: Order Comment: TEST CBC AND DIFFERENTIAL WAS CANCELLED, 08/24/2021 18:56 Performed By: #### C BCDF #### [facility] [address] [place] [address] RDW-CV Canceled Normal [facility] Comment on above: Order Comment: TEST CBC AND DIFFERENTIAL WAS CANCELLED, 08/24/2021 18:56 Performed By: #### C BCDF #### [facility] [address] [place] [address] WBC Canceled Normal [facility] Comment on above: Order Comment: TEST CBC AND DIFFERENTIAL WAS CANCELLED, 08/24/2021 18:56 Performed By: #### C BCDF #### [facility] [address] [place] [address] COMPREHENSIVE PANELon 2020 ALBUMIN Canceled Normal [facility] Comment on above: Order Comment: TEST COMPREHENSIVE PANEL WAS CANCELLED, 08/24/2021 18:56 Performed By: #### C MP #### [facility] [address] [place] [address] ALKALINE PHOSPHATASE Canceled Normal [facility] Comment on above: Order Comment: TEST COMPREHENSIVE PANEL WAS CANCELLED, 08/24/2021 18:56 Performed By: #### C MP #### [facility] [address] [place] [address] ALT Canceled Normal [facility] Comment on above: Order Comment: TEST COMPREHENSIVE PANEL WAS CANCELLED, 08/24/2021 18:56 Result Comment: Yanni ents treated with Sulfasalazine may generate falsely decreased results for ALT. Performed By: #### C MP #### [facility] [address] [place] [address] ANION GAP Canceled Normal [facility] Comment on above: Order Comment: TEST COMPREHENSIVE PANEL WAS CANCELLED, 08/24/2021 18:56 Performed By: #### C MP #### [facility] [address] [place] [address] AST Canceled Normal [facility] Comment on above: Order Comment: TEST COMPREHENSIVE PANEL WAS CANCELLED, 08/24/2021 18:56 Performed By: #### C MP #### [place] [address] [place] [address] BICARBONATE Canceled Normal [facility] Comment on above: Order Comment: TEST COMPREHENSIVE PANEL WAS CANCELLED, 08/24/2021 18:56 Performed By: #### C MP #### [facility] [address] [place] [address] BILIRUBIN,TOTAL Canceled Normal [facility] Comment on above: Order Comment: TEST COMPREHENSIVE PANEL WAS CANCELLED, 08/24/2021 18:56 Performed By: #### C MP #### [facility] [address] [place] [address] CALCIUM Canceled Normal [facility] Comment on above: Order Comment: TEST COMPREHENSIVE PANEL WAS CANCELLED, 08/24/2021 18:56 Performed By: #### C MP #### [facility] [address] [place] [address] CHLORIDE Canceled Normal [facility] Comment on above: Order Comment: TEST COMPREHENSIVE PANEL WAS CANCELLED, 08/24/2021 18:56 Performed By: #### C MP #### [facility] [address] [place] [address] CREATININE Canceled Normal [facility] Comment on above: Order Comment: TEST COMPREHENSIVE PANEL WAS CANCELLED, 08/24/2021 18:56 Performed By: #### C MP #### [facility] [address] [place] [address] GFR- AM. Canceled Normal [facility] Comment on above: Order Comment: TEST COMPREHENSIVE PANEL WAS CANCELLED, 08/24/2021 18:56 Result Comment: CALC ULATIONS OF ESTIMATED GFR ARE PERFORMED USING THE MDRD STUDY EQUATION FOR THE IDMS-TRACEABLE CREATININE METHODS. CLIN CHEM 2007;53:766-72 Performed By: #### C MP #### [facility] [address] [place] [address] GFR-NON AM. Canceled Normal [facility] Comment on above: Order Comment: TEST COMPREHENSIVE PANEL WAS CANCELLED, 08/24/2021 18:56 Performed By: #### C MP #### [facility] [address] [place] [address] GLUCOSE Canceled Normal [facility] Comment on above: Order Comment: TEST COMPREHENSIVE PANEL WAS CANCELLED, 08/24/2021 18:56 Performed By: #### C MP #### [facility] [address] [place] [address] POTASSIUM Canceled Normal [facility] Comment on above: Order Comment: TEST COMPREHENSIVE PANEL WAS CANCELLED, 08/24/2021 18:56 Performed By: #### C MP #### [facility] [address] [place] [address] SODIUM Canceled Normal [facility] Comment on above: Order Comment: TEST COMPREHENSIVE PANEL WAS CANCELLED, 08/24/2021 18:56 Performed By: #### C MP #### [facility] [address] [place] [address] TOTAL PROTEIN Canceled Normal [facility] Comment on above: Order Comment: TEST COMPREHENSIVE PANEL WAS CANCELLED, 08/24/2021 18:56 Performed By: #### C MP #### [facility] [address] [place] [address] UREA NITROGEN Canceled Normal [facility] Comment on above: Order Comment: TEST COMPREHENSIVE PANEL WAS CANCELLED, 08/24/2021 18:56 Performed By: #### C MP #### [facility] [address] [place] [address] TROPONIN Ion 08-24-2021 TROPONIN I Canceled Normal [facility] Comment on above: Order Comment: TEST TROPONIN [...] is performed using different testing methodology at [facility] than at other [facility]. Direct result comparisons should only be made within the same method. . Biotin interference may cause falsely decreased results. Patients taking a Biotin dose of up to 5 mg/day should refrain from taking Biotin for 24 hours before sample collection. Providers may contact their laboratory for further information. Performed By: #### C BCDF #### [facility] [address] [place] [address] No Panel Informationon 08-23 [email or web address]?RetrieveTestByDateTim e?RcgttewEP=[email or web address]&Da te=10-04-2020&Time=17%3a 54%3a45%3a00&TestType=EC G&Site=1&OutputType=PDF& Ext=PDF [facility] Work Phone: Please see ED Provid er Note for formal interpretation [facility] Work Phone: Normal [facility] Work Phone: [phone] 1 [facility] Work Phone: 390 1 [facility] Work Phone: 192 1 [facility] Work Phone: 137 1 [facility] Work Phone: 216 1 [facility] Work Phone: 13 1 [facility] Work Phone: 17 1 [facility] Work Phone: -12 1 [facility] Work Phone: 39 1 [facility] Work Phone: 408 1 [facility] Work Phone: 348 1 [facility] Work Phone: 100 1 [facility] Work Phone: 158 1 [facility] Work Phone: 83 1 [facility] Work Phone: Office Visit (Vascular Surge ry)on [...] daily at bedtime Vitals Vital Signs Recorded: 23Aug2021 04:23PM Heart Rate86 Mthinzvlxhd87 Hqyexpdr944, RUE, Sitting Jdzutgiwj42, RUE, Sitting Height5 ft 6 in Nquszo588 lb BMI Dhisptnoks06.93 kg/m2 BSA Calculated2.02 O2 Qgqmoiiatc49 Physical Exam smells of alcohol clearly inebriated Time Time spent directly with patient/family/caregiver : 10 minutes. Documentation time: 5 minutes. Total time on date of patient encounter: 15 minutes. Signatures Electronically signed by : Max Delatorre MD; Aug 23 2021 5:18PM EST (Author) Normal [facility] Triage - EDon 08-23-2021 Triage - ED Chart Review: ARRIVAL INFORMATION Mode of Arrival: private vehicle CHIEF COMPLAINT HOSEA ALVAREZ is a Male patient with a chief complaint of chest pain. Other Complaints: chest pain and palpitations x 20 min- was at [facility] surgery appt- denies sob radiation of pain dizziness N/V Triage Date/Time: 23-Aug-2021 17:50 WILMAN: 2 Pain Rating (0-10): 3 = Mild Vital Signs: Temperature: 97.3F ( 36.3C) taken forehead Blood Pressure: 114/73 Mean: Heart Rate: 87 Respiratory Rate: 18 Pulse Oximetry: 94% on room air, no respiratory support. [place]ron[place] Coma Scale: Best Eye Response: (E4) spontaneous Best Motor Response: (M6) obeys commands Best Verbal Response: (V5) oriented Lynda Score: 15 [place]rona Assessment Qualifiers: patient not sedated/intubated and no [...] Past Medical History Reviewedyes Electronic Signatures: Nicole Paredes) (Signed 23-Aug-2021 17:55) Authored: Quick Triage, Risk Screens, Pain, Travel History, Chart Review, Scores, Past Medical History Last Updated: 23-Aug-2021 17:55 by Nicole Paredes (RN) Normal [facility] CBC AND DIFFERENTIALon 08-20 % AUTOMATED IMMATURE GRAN 0.3 % Normal 0.0 - 0.9 [facility] Comment on above: Result Comment: Kath ture Granulocyte Count (IG) includes promyelocytes, myelocytes and metamyelocytes but does not include bands. Percent differential counts (%) should be interpreted in the context of the absolute cell counts (cells/L). Performed By: #### C BCDF ####[facility] [place] [id number] Basophils (Bld) [#/Vol] 0.02 10*3/uL Normal 0.00 - 0.10 [facility] Comment on above: Performed By: #### C BCDF ####[facility] [place] [id number] Basophils/100 WBC (Bld) 0.5 % 0.0 - 2.0 [facility] Comment on above: Performed By: #### C BCDF ####[facility] [place] [id number] Eosinophils (Bld) [#/Vol] 0.10 10*3/uL Normal 0.00 - 0.70 [facility] Comment on above: Performed By: #### C BCDF ####[facility] [place] [id number] Eosinophils/100 WBC (Bld) 2.7 % Normal 0.0 - 6.0 [facility] Comment on above: Performed By: #### C BCDF ####[facility] [place] [id number] Erythrocyte distribution width (RBC) [Ratio] 13.5 % See Below [facility] Comment on above: Performed By: #### C BCDF ####[place] [id number] [place] [id number] Reference Range: 11. 5 - 14.5 Hematocrit (Bld) [Volume fraction] 39.5 % below low threshold See Below [facility] Comment on above: Performed By: #### C BCDF ####[facility] [id number] [place] [address] Reference Range: 41. 0 - 52.0 Hemoglobin (Bld) [Mass/Vol] 12.9 g/dL below low threshold See Below [facility] Comment on above: Performed By: #### C BCDF ####[facility] [id number] [place] [address] Reference Range: 13. 5 - 17.5 Lymphocytes (Bld) [#/Vol] 0.90 10*3/uL Low 1.20 - 4.80 [facility] Comment on above: Performed By: #### C BCDF ####[facility] [id number] [place] [address] Lymphocytes/100 WBC (Bld) 24.5 % See Below [facility] Comment on above: Performed By: #### C BCDF ####[facility] [id number] [place] [address] Reference Range: 13. 0 - 44.0 MCHC (RBC) [Mass/Vol] 32.7 g/dL See Below [facility] Comment on above: Performed By: #### C BCDF ####[facility] [id number] [place] [address] Reference Range: 32. 0 - 36.0 MCV (RBC) [Entitic vol] 87 fL 80 - 100 [facility] Comment on above: Performed By: #### C BCDF ####[facility] [id number] [place] [address] Monocytes (Bld) [#/Vol] 0.39 10*3/uL Normal 0.10 - 1.00 [facility] Comment on above: Performed By: #### C BCDF ####[facility] [id number] [place] [address] Monocytes/100 WBC (Bld) 10.6 % 2.0 - 10.0 [facility] Comment on above: Performed By: #### C BCDF ####[facility] [id number] [place] [address] Neutrophils (Bld) [#/Vol] 2.25 10*3/uL Normal 1.20 - 7.70 [facility] Comment on above: Performed By: #### C BCDF ####[facility] [id number] [place] [address] Neutrophils/100 WBC (Bld) 61.4 % See Below [facility] Comment on above: Performed By: #### C BCDF ####[facility] [id number] [place] [address] Reference Range: 40. 0 - 80.0 Platelets (Bld) [#/Vol] 134 10*3/uL below low threshold 150 - 450 [facility] Comment on above: Result Comment: Plat elet count verified by smear review. Performed By: #### C BCDF ####[facility] [id number] [place] [id number] Platelet count verif ied by smear review. RBC 4.54 x10E12/L Normal 4.50 - 5.90 [facility] Comment on above: Performed By: #### C BCDF ####[facility] [id number] [place] [address] WBC (Bld) [#/Vol] 3.7 10*3/uL below low threshold 4.4 - 11.3 [facility] Comment on above: Performed By: #### C BCDF ####[facility] [id number] [place] [address] CHEST 1 VIEWon 08-20-2021 CHEST 1 VIEW Patient Name: HOSEA ALVAREZ STUDY: CHEST 1 VIEW; 08/20/2021 9:44 am INDICATION: HTN . COMPARISON: 08/12/2021. ACCESSION NUMBER(S): [id number] ORDERING CLINICIAN: GUILLERMO TONY FINDINGS: CARDIOMEDIASTINAL SILHOUETTE: Aortic prominence/tortuosity is similar to prior. Cardiac silhouette is borderline in size but stable. LUNGS: No focal infiltrate. No pleural effusion or pneumothorax. ABDOMEN: No remarkable upper abdominal findings. BONES: No acute osseous changes. IMPRESSION: 1. No evidence of acute cardiopulmonary process. No significant change from prior. Electronically signed by: CHEO MARIE MD Normal [facility] COMPREHENSIVE PANELon 2020 Albumin [Mass/Vol] 4.2 g/dL Normal 3.4 - 5.0 [facility] Comment on above: Performed By: #### C MP ####[facility] [place] [id number] ALP [Catalytic activity/Vol] 54 U/L 33 - 120 [facility] Comment on above: Performed By: #### C MP ####[facility] [place] [address] ALT [Catalytic activity/Vol] 25 U/L Normal 10 - 52 [facility] Comment on above: Result Comment: Yanni ents treated with Sulfasalazine may generate falsely decreased results for ALT. Performed By: #### C MP ####[facility] [place] [address] Anion gap [Moles/Vol] 10 mmol/L 10 - 20 [facility] Comment on above: Performed By: #### C MP ####[facility] [place] [address] AST [Catalytic activity/Vol] 20 U/L Normal 9 - 39 [facility] Comment on above: Performed By: #### C MP ####[facility] [place] [address] Bilirubin [Mass/Vol] 0.5 mg/dL 0.0 - 1.2 [facility] Comment on above: Performed By: #### C MP ####[facility] [place] [address] Calcium [Mass/Vol] 9.1 mg/dL 8.6 - 10.3 [facility] Comment on above: Performed By: #### C MP ####[facility] [place] [address] Chloride [Moles/Vol] 103 mmol/L 98 - 107 [facility] Comment on above: Performed By: #### C MP ####[facility] [place] [address] Creatinine [Mass/Vol] 0.91 mg/dL See Below [facility] Comment on above: Performed By: #### C MP ####[facility] [place] [id number] Reference Range: 0.5 0 - 1.30 GFR- AM. >60 Normal >60 [facility] Comment on above: Result Comment: CALC ULATIONS OF ESTIMATED GFR ARE PERFORMED USING THE MDRD STUDY EQUATION FOR THE IDMS-TRACEABLE CREATININE METHODS. CLIN CHEM 2007;53:766-72 Performed By: #### C MP ####[facility] [place] [address] GFR-NON AM. >60 Normal >60 [facility] Comment on above: Performed By: #### C MP ####[facility] [place] [address] Glucose [Mass/Vol] 96 mg/dL 74 - 99 [facility] Comment on above: Performed By: #### C MP ####[facility] [place] [address] HCO3 (Bld) [Moles/Vol] 29 mmol/L Normal 21 - 32 [facility] Comment on above: Performed By: #### C MP ####[facility] [place] [address] Potassium [Moles/Vol] 4.1 mmol/L 3.5 - 5.3 [facility] Comment on above: Performed By: #### C MP ####[facility] [place] [address] Protein [Mass/Vol] 6.6 g/dL 6.4 - 8.2 [facility] Comment on above: Performed By: #### C MP ####[facility] [place] [id number] Sodium [Moles/Vol] 138 mmol/L 136 - 145 [facility] Comment on above: Performed By: #### C MP ####[facility] [id number] [place] [id number] Urea nitrogen [Mass/Vol] 15 mg/dL 6 - [facility] Comment on above: Performed By: #### C MP ####[facility] [id number] [place] [address] Complete Blood Count + Diffe rentialon 08-20-2021 RBC (Bld) [#/Vol] 4.54 {x10E12/L} See Below [facility] Work Phone: Comment on above: Reference Range: 4.5 0 - 5.90 Complete Blood Count + Differential 0.02 {x10E9/L} See Below [facility] Work Phone: Comment on above: Reference Range: 0.0 0 - 0.10 Complete Blood Count + Differential 0.10 {x10E9/L} See Below [facility] Work Phone: Comment on above: Reference Range: 0.0 0 - 0.70 Complete Blood Count + Differential 0.39 {x10E9/L} See Below [facility] Work Phone: Comment on above: Reference Range: 0.1 0 - 1.00 Complete Blood Count + Differential 0.90 {x10E9/L} below low threshold See Below [facility] Work Phone: Comment on above: Reference Range: 1.2 0 - 4.80 Complete Blood Count + Differential 2.25 {x10E9/L} See Below [facility] Work Phone: Comment on above: Reference Range: 1.2 0 - 7.70 Complete Blood Count + Differential 2.7 % 0.0 - 6.0 [facility] Work Phone: Complete Blood Count + Differential 0.3 % 0.0 - 0.9 [facility] Work Phone: Comment on above: Immature Granulocyte Count (IG) includes promyelocytes, myelocytes and metamyelocytes but does not include bands. Percent differential counts (%) should be interpreted in the context of the absolute cell counts (cells/L). ED NOTEon 08-20-2021 ED NOTE HNO ID: [id number] Author: Sendy Graham RN Service: Nursing Author Type: Registered Nurse Type: ED Notes Filed: 08/20/2021 2:23 AM Note Text: Discharge papers reviewed with patient. Patient verbally acknowledged discharge instructions. [facility] ED PROV NOTEon 08-20-2021 ED PROV NOTE HNO ID: [id number] Author: Kay Cruz MD Service: Emergency Medicine Author Type: Physician Type: ED Provider Notes Filed: 08/20/2021 3:51 AM Note Text: ED Continuation of Care Note August 20, 2021 3:51 AM Hosea Brennon Antonio was endorsed to me by [facility] . The patient initially presented to the ED for chest pain. Signout note reviewed Work-up was reassuring here he was well-appearing, with negative result discharged as anticipated by previous provider ED Course as of 08/20/21350 Kay Cruz's Documentation Sun Aug 20, 2021 [...] normal axis and QRS complex normal, normal NV and QT intervals and ST segment normal, [...] TROPONIN T (AK AV,EU,FV,HL,RENE,MM,SP) Kay Cruz MD 08/20/21 0351 Normal [facility] High Sens Troponin Ton 08-20 High Sensitivity SITA 7 ng/L Normal <12 [facility] Comment on above: Result Comment: When assessing [...] Suggest reorder as clinically indicated. Normal <12 [facility] Laboratory - Chemistry and C hemistry - challengeon 08-20-2021 Albumin BCP dye [Mass/Vol] 4.2 g/dL 3.4 - 5.0 [facility] Work Phone: ALT With P-5'-P [Catalytic activity/Vol] 25 U/L 10 - 52 [facility] Work Phone: Comment on above: Patients treated wit h Sulfasalazine may generate falsely decreased results for ALT. AST With P-5'-P [Catalytic activity/Vol] 20 U/L 9 - 39 [facility] Work Phone: CO2 [Moles/Vol] 29 mmol/L 21 - 32 [facility] Work Phone: No Panel Informationon 08-20 [email or web address]?RetrieveTestByDateTim e?ZdyxlapHO=[id number]&Da te=20-08-2021&Time=11%3a 04%3a49%3a00&TestType=EC G&Site=2&OutputType=PDF& Ext=PDF [facility] Work Phone: Sinus bradycardia [facility] Work Phone: Abnormal [facility] Work Phone: [phone] [facility] Work Phone: 400 1 [facility] Work Phone: 171 1 [facility] Work Phone: 117 1 [facility] Work Phone: 210 1 [facility] Work Phone: 9 1 [facility] Work Phone: -5 1 [facility] Work Phone: -15 1 [facility] Work Phone: 17 1 [facility] Work Phone: [phone] 1 [facility] Work Phone: 380 1 [facility] Work Phone: 98 1 [facility] Work Phone: 186 1 [facility] Work Phone: 57 1 [facility] Work Phone: >60 >60 [facility] Work Phone: Comment on above: CALCULATIONS OF NIKOLE MATED GFR ARE PERFORMED USING THE MDRD STUDY EQUATION FOR THE IDMS-TRACEABLE CREATININE METHODS. CLIN CHEM 2007;53:766-72 Provider Note - ED v3on - Provider Note - ED v3 Provider Note: Chart Review: HISTORY OF PRESENTING ILLNESS HOSEA is a 51 year old Male and was seen by me at 20-Aug-2021 10:16 for a chief complaint of hypertension . Other complaints include: Patient brought to ER by EMS with complaints of high blood pressure. Patient states he was seen at [facility] for high blood pressure, was turned away so he went to [place], was treated and discharged, but took his own blood pressure and noticed it was high so decided to check back in to [facility], but was refused and claims he [...] third emergency room visit. Recently seen at [place] yesterday and discharged and tried to go back into [place] and states he was refused. He comes in today for increasing high blood pressure he is concerned about his blood pressure being 150s 160s systolic and 110s diastolic because he has a thoracic aortic aneurysm. He said the last scan revealed approximately 5 cm thoracic aortic aneurysm. He said he had about 30 [address] scans and is from [place] so all of them I will not [...] swelling. Skin (more content not included)... Normal [facility] Radiologyon 08-20-2021 XR Lumbar spine AP and Lateral Normal [facility] Work Phone: XR Chest Single view Normal [facility] Work Phone: SPINE, LUMBOSACRAL; 2 OR 3 V IEWSon 08-20-2021 SPINE, LUMBOSACRAL; 2 OR 3 VIEWS Patient Name: HOSEA ALVAREZ STUDY: SPINE, LUMBOSACRAL; 2 OR 3 VIEWS; 08/20/2021 12:04 pm INDICATION: low back pain . COMPARISON: None. ACCESSION NUMBER(S): [id number] ORDERING CLINICIAN: SAHIL MACLELLAN FINDINGS: Three views of the lumbar spine [...] Electronically signed by: APOORVA BELLE MD Normal [facility] TROPONIN Ion 08-20-2021 Troponin I.cardiac [Mass/Vol] 0.02 ng/mL See Below [facility] Comment on above: Result Comment: LESS [...] is performed using different testing methodology at [facility] than at other [facility]. Direct result comparisons should only be made within the same method. Performed By: #### T ROP2 ####[facility] [id number] [place] [address] Reference Range: 0.0 0 - 0.03LESS THAN 0.04 NG/ML: NEGATIVEREPEAT TESTING IN THREE TO SIX HOURSIF CLINICALLY INDICATED.0.04 - 0.5 NG/ML: CONSISTENT WITH POSSIBLECARDIAC DAMAGE AND POSSIBLE INCREASEDCLINICAL RISK.SERIAL MEASUREMENTS MAY HELP ASSESS EXTENT OFMYOCARDIAL DAMAGE.>0.5 NG/ML: CONSISTENT WITH CARDIAC DAMAGE,INCREASED CLINICAL RISK AND MYOCARDIALINFARCTION. SERIAL MEASUREMENTS MAY HELPASSESS EXTENT OF MYOCARDIAL DAMAGE..Note: Troponin I testing is performed using different testing methodology at [facility] than at other [facility]. Direct result comparisons should only be made within the same method. Triage - EDon 08-20-2021 Triage - ED Chart Review: ARRIVAL INFORMATION Mode of Arrival: ambulance Agency Name: [place] CHIEF COMPLAINT HOSEA ALVAREZ is a Male patient with a chief complaint of hypertension. Onset of the Complaint: 20-Aug-2021 Other Complaints: Patient brought to ER by EMS with complaints of high blood pressure. Patient states he was seen at [facility] for high blood pressure, was turned away so he went to [place], was treated and discharged, but took his own blood pressure and noticed it was high so decided to check back in to [facility], but was refused and claims he [...] BMI (kg/m2): 32.040 Calculated BSA (m2) 2.05 Trona Coma Scale: Best Eye Response: (E4) spontaneous [...] Medical History, Active Electronic Signatures: Ellie Rodriguez (RN) (Signed 20-Aug-2021 09:24) Authored: Quick Triage, Chart Review Kristen Edmond (EMT-P) (Signed 20-Aug-2021 06:36) Authored: Quick Triage, Risk Screens, Pain, Travel History, Chart Review, Scores, Past Medical History Last Updated: 20-Aug-2021 09:24 by Ellie Rodriguez (BROOK[place]NN) [place] ALLIED HEALTH 08-19-2021 ALLIED HEALTH HNO ID: [id number] Author: RT Chip(Dianne) Service: Radiology Author Type: Technologist Type: Allied [...] Chip(R) August 19, 2021 8:08 PM Normal [facility] CBC and Differentialon 08-19 Abs Baso <0.03 Normal <0.11 [facility] Abs Wilbarger 0.34 k/uL Normal <0.87 [facility] Abs Neut 2.00 k/uL Normal 1.45-7.50 [facility] Absolute nRBC <0.01 Normal <0.01 [facility] Basophils/100 WBC (Bld) 0.6 % Normal [facility] DTYPE Auto Diff Normal [facility] Eosinophils (Bld) [#/Vol] 0.06 10*3/uL Normal <0.46 [facility] Eosinophils/100 WBC (Bld) 1.9 % Normal [facility] Erythrocyte distribution width (RBC) [Ratio] 13.5 % Normal 11.5-15.0 [facility] Hematocrit (Bld) [Volume fraction] 38.8 % Low 39.0-51.0 [facility] Hemoglobin (Bld) [Mass/Vol] 13.1 g/dL Normal 13.0-17.0 [facility] Lymphocytes (Bld) [#/Vol] 0.80 10*3/uL Low 1.00-4.00 [facility] Lymphocytes/100 WBC (Bld) 24.7 % Normal [facility] MCH 28.7 pG Normal 26.0-34.0 [facility] MCHC (RBC) [Mass/Vol] 33.8 g/dL Normal 30.5-36.0 [facility] MCV (RBC) [Entitic vol] 85.1 fL Normal 80.0-100.0 [facility] Monocytes/100 WBC (Bld) 10.5 % Normal [facility] Neutrophils/100 WBC (Bld) 62.3 % Normal [facility] NRBCs 0.0 /100 WBC Normal 0 [facility] Platelet mean volume (Bld) [Entitic vol] 11.7 fL Normal 9.0-12.7 [facility] Platelets (Bld) [#/Vol] 145 10*3/uL Low 150-400 [facility] RBC (Bld) [#/Vol] 4.56 10*6/uL Normal 4.20-6.00 [facility] WBC (Bld) [#/Vol] 3.24 10*3/uL Low 3.70-11.00 [facility] Comp Metabolic Panelon 08-19 Albumin [Mass/Vol] 4.4 g/dL Normal 3.9-4.9 [facility] ALP [Catalytic activity/Vol] 66 U/L Normal 38-113 [facility] ALT [Catalytic activity/Vol] 25 U/L Normal 10-54 [facility] Anion gap [Moles/Vol] 14 mmol/L Normal 9-18 [facility] AST [Catalytic activity/Vol] 22 U/L Normal 14-40 [facility] Bilirubin [Mass/Vol] 0.3 mg/dL Normal 0.2-1.3 [facility] Calcium [Mass/Vol] 9.5 mg/dL Normal 8.5-10.2 [facility] Chloride [Moles/Vol] 103 mmol/L Normal 97-105 [facility] CO2 [Moles/Vol] 24 mmol/L Normal 22-33 [facility] Creatinine [Mass/Vol] 0.98 mg/dL Normal 0.73-1.22 [facility] eGFR- Amer. >60 Normal [facility] eGFR-All Other Races >60 Normal [facility] Comment on above: Result Comment: eGFR (Estimated [...] [email or web address]. Glucose [Mass/Vol] 105 mg/dL High 74-99 [facility] Potassium [Moles/Vol] 4.2 mmol/L Normal 3.7-5.1 [facility] Protein [Mass/Vol] 7.0 g/dL Normal 6.3-8.0 [facility] Sodium [Moles/Vol] 141 mmol/L Normal 136-144 [facility] Urea nitrogen [Mass/Vol] 15 mg/dL Normal 9-24 [facility] ED NOTEon 08-19-2021 ED NOTE HNO ID: [id number] Author: Vita Guerrero RN Service: Nursing Author Type: Registered Nurse Type: ED Notes Filed: 08/19/2021 7:39 PM Note Text: Patient refused to leyt nurse put the bedside rail because it makes him feel uncomfortable. Patient educated to call before he gets up. [facility] ED NOTE HNO ID: [id number] Author: Vita Guerrero RN Service: Nursing Author Type: Registered Nurse Type: ED Notes Filed: 08/19/2021 7:38 PM Note Text: Patient was seen at [facility] twice today for chest pain and patient was fully worked up and discharge. Once patient was discharge he called EMS and had them bring him to [place]. Patient is complaining of midline back pain and dizziness when he stands up. [facility] ED NOTE HNO ID: [id number] Author: Tabby Rhodes RN Service: ? Author Type: Registered Nurse Type: ED Notes Filed: 08/19/2021 7:14 PM Note Text: Bed: ED-08 Expected date: 08/19/21 Expected time: Means of arrival: [facility] FD ([id number]) Comments: [facility] 741 [facility] ED PROV NOTEon 08-19-2021 ED PROV NOTE HNO ID: [id number] Author: Nessa Alejandre DO Service: Emergency Medicine [...] diarrhea. Patient reports he was seen at [facility] twice earlier today. He states because the docs over there are contract physicians that they did not want to see him because they did not like his attitude. States he has a history of a thoracic aneurysm and is supposed to see a physician down in [place]. He states he sees a shoe polisher over at [facility]. He states because of his size of his aneurysm is close to 5 cm that he likely needs to have surgery soon. History provided by: Patient american sign language interpreter used: No PAST MEDICAL HISTORY Diagnosis Date [...] - Caffeine Rash Other reaction(s): Shakiness - [place] GI Upset, Rash, Vomiting Statused by Person: ?Imelda Meza.(Altaf Meza2) on Statused by Person: ?SRAVANTHI MONGE([facility]) on Statused by Person: ?Imelda Meza.(T Derrick2) on Statused by Person: ?SRAVANTHI MONGE([facility]) on - Amlodipine Swelling - Amoxicillin GI Upset - Chocolate Flavor GI Upset - Ciprofloxacin Other: See Comments - Diazepam Unknown - Fentanyl Mental Status Change - Lorazepam GI Upset Other reaction(s): Abdominal Pain - Seasonal Allergies GI Upset Abdominal pain Abdominal pain - Serotonin Hcl Mental Status Change 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 Physical Exam Vitals [08/19/211915] BP Pulse Temp Temp src Resp SpO2 [...] / C (more content not included)... Normal [facility] High Sens Troponin Ton 08-19 High Sensitivity SITA Unable to assay due to interference from hemolysis. Suggest reorder as clinically indicated. Normal <12 [facility] High Sensitivity SITA 7 ng/L Normal <12 [facility] Comment on above: Result Comment: When assessing [...] 08-19-2021 Magnesium [Mass/Vol] 1.7 mg/dL Normal 1.7-2.3 [facility] Provider Note - ED v3on 07-25 Provider Note - ED v3 Provider Note: Chart Review: ED NOTES ED NOTES: HPI: 51 y/o M past medical hx renal artery stenosis. Patient c/o back pain. Provoking - patient was seen here earlier today and medically cleared after being inapproriate with staff. Patient was then seen at [place] and treated and released. He is returning [...] motion normal. Patient walking in ER NEURO: Lynda coma scale 15, Neuro exam [...] From Triage - ED 19-Aug-2021 17:48 Normal [facility] Provider Note - ED v3 Provider Note: [...] Signatures: Lynnette (more content not included)... Normal [facility] Triage - EDon 08-19-2021 Triage - ED [...] BMI (kg/m2): 32.040 Calculated BSA (m2) 2.05 Trona Coma Scale: Best Eye Response: (E4) spontaneous Best Motor Response: (M6) obeys commands Best Verbal Response: (V5) oriented Trona Score: 15 Cough lasting greater than 3 [...] Updated: 19-Aug-2021 12:14 by Benjamin Gilman (EMT-P) [facility] XR CHEST 2V FRONTAL/LATon XR CHEST 2V [...] on Aug 19 2021 8:31PM EST [id number] [facility] Provider Note - ED Care Reyes jerion 08-13-2021 Provider Note - ED Care Transition [...] patient has appointment with the doctor in [place] that he has not yet seen. Additionally patient has establish care where he is from in [place]. Patient is given return precautions and is [...] Updated: 14-Aug-2021 12:47 by Triston Orozco) Normal [facility] CBCon 08-12-2021 Erythrocyte distribution width (RBC) [Ratio] 13.2 % Normal 11.5 - 14.5 [facility] Comment on above: Performed By: #### C BC ####[id number] [place] [address] Hematocrit (Bld) [Volume fraction] 35.8 % Low 41.0 - 52.0 [facility] Comment on above: Performed By: #### C BC ####[id number] [place] [address] Hemoglobin (Bld) [Mass/Vol] 11.5 g/dL Low 13.5 - 17.5 [facility] Comment on above: Performed By: #### C BC ####[id number] [place] [address] MCHC (RBC) [Mass/Vol] 32.1 g/dL Normal 32.0 - 36.0 [facility] Comment on above: Performed By: #### C BC ####[id number] [place] [address] MCV (RBC) [Entitic vol] 86 fL Normal 80 - 100 [facility] Comment on above: Performed By: #### C BC ####[id number] [place] [address] NUCLEATED RBC 0.0 /100 WBC Normal 0.0-0.0 [facility] Comment on above: Performed By: #### C BC ####[id number] [place] [address] Platelets (Bld) [#/Vol] 148 10*3/uL Low 150 - 450 [facility] Comment on above: Performed By: #### C BC ####[id number] [place] [address] RBC 4.18 x10E12/L Low 4.50 - 5.90 [facility] Comment on above: Performed By: #### C BC ####[id number] [place] [address] WBC (Bld) [#/Vol] 3.6 10*3/uL Low 4.4 - 11.3 [facility] Comment on above: Performed By: #### C BC ####[id number] [place] [address] CT Angio Cheston 08-12-2021 CTA Chest vessels Normal [facility] Work Phone: Laboratory - Hematology and Cell countson 08-12-2021 Erythrocyte distribution width (RBC) [Ratio] 13.2 % See Below [facility] Work Phone: Comment on above: Reference Range: 11. 5 - 14.5 Hematocrit (Bld) [Volume fraction] 35.8 % below low threshold See Below [facility] Work Phone: Comment on above: Reference Range: 41. 0 - 52.0 Hemoglobin (Bld) [Mass/Vol] 11.5 g/dL below low threshold See Below [facility] Work Phone: Comment on above: Reference Range: 13. 5 - 17.5 MCHC (RBC) [Mass/Vol] 32.1 g/dL See Below [facility] Work Phone: Comment on above: Reference Range: 32. 0 - 36.0 MCV (RBC) [Entitic vol] 86 fL 80 - 100 [facility] Work Phone: Platelets (Bld) [#/Vol] 148 10*3/uL below low threshold 150 - 450 [facility] Work Phone: RBC (Bld) [#/Vol] 4.18 {x10E12/L} below low threshold See Below [facility] Work Phone: Comment on above: Reference Range: 4.5 0 - 5.90 WBC (Bld) [#/Vol] 3.6 10*3/uL below low threshold 4.4 - 11.3 [facility] Work Phone: No Panel Informationon 08-12 0.0 {/100_WBC} 0.0-0.0 [facility] Work Phone: Provider Note - ED v3on [...] middle of his back. He went to [facility] and was sent home after being given [...] the docu (more content not included)... Normal [facility] RENAL FUNCTION PANELon 08-12 Albumin [Mass/Vol] 4.1 g/dL Normal 3.4 - 5.0 [facility] Comment on above: Performed By: #### C BCDF #### [facility] [address] [place] [address] Anion gap [Moles/Vol] 14 mmol/L Normal - [facility] Comment on above: Performed By: #### C BCDF #### [facility] [address] [place] [address] Calcium [Mass/Vol] 8.6 mg/dL Normal 8.6 - 10.6 [facility] [place] Comment on above: Performed By: #### C BCDF #### [facility] [address] [place] [address] Chloride [Moles/Vol] 106 mmol/L Normal 98 - 107 [facility] Comment on above: Performed By: #### C BCDF #### [facility] [address] [place] [address] Creatinine [Mass/Vol] 1.15 mg/dL Normal 0.50 - 1.30 [facility] Comment on above: Performed By: #### C BCDF #### [facility] [address] [place] [address] GFR- AM. >60 Normal >60 [facility] Comment on above: Result Comment: CALC ULATIONS OF ESTIMATED GFR ARE PERFORMED USING THE MDRD STUDY EQUATION FOR THE IDMS-TRACEABLE CREATININE METHODS. CLIN CHEM 2007;53:766-72 Performed By: #### C BCDF #### [place] [id number] [place] [address] GFR-NON AM. >60 Normal >60 [facility] Comment on above: Performed By: #### C BCDF #### [place] [id number] [place] [address] Glucose [Mass/Vol] 87 mg/dL Normal 74 - 99 [facility] [place] Comment on above: Performed By: #### C BCDF #### [place] [id number] [place] [address] HCO3 (Bld) [Moles/Vol] 25 mmol/L Normal 21 - 32 [facility] Comment on above: Performed By: #### C BCDF #### [facility] [address] [place] [address] Phosphate [Mass/Vol] 3.7 mg/dL Normal 2.5 - 4.9 [facility] Comment on above: Result Comment: The performance characteristics of phosphorus testing in heparinized plasma have been validated by the individual laboratory site where testing is performed. Testing on heparinized plasma is not approved by the FDA; however, such approval is not necessary. Performed By: #### C BCDF #### [facility] [id number] [place] [address] Potassium [Moles/Vol] 4.4 mmol/L Normal 3.5 - 5.3 [facility] Comment on above: Performed By: #### C BCDF #### [facility] [address] [place] [address] Sodium [Moles/Vol] 141 mmol/L Normal 136 - 145 [facility] [place] Comment on above: Performed By: #### C BCDF #### [facility] [address] [place] [address] Urea nitrogen [Mass/Vol] 13 mg/dL Normal 6 - 23 [facility] Comment on above: Performed By: #### C BCDF #### [facility] [address] [place] [address] Radiologyon 08-12-2021 XR Chest Single view Normal [facility] Work Phone: Renal Function Panelon 08-12 Albumin BCP dye [Mass/Vol] 4.1 g/dL 3.4 - 5.0 [facility] Work Phone: Anion gap [Moles/Vol] 14 mmol/L 10 - 20 [facility] Work Phone: [phone] Calcium [Mass/Vol] 8.6 mg/dL 8.6 - 10.6 [facility] Work Phone: [phone] Chloride [Moles/Vol] 106 mmol/L 98 - 107 [facility] Work Phone: [phone] CO2 [Moles/Vol] 25 mmol/L 21 - 32 [facility] Work Phone: Creatinine [Mass/Vol] 1.15 mg/dL See Below [facility] Work Phone: Comment on above: Reference Range: 0.5 0 - 1.30 Glucose [Mass/Vol] 87 mg/dL 74 - 99 [facility] Work Phone: Phosphate [Mass/Vol] 3.7 mg/dL 2.5 - 4.9 [facility] Work Phone: Comment on above: The performance tahira acteristics of phosphorus testing in heparinized plasma have been validated by the individual laboratory site where testing is performed. Testing on heparinized plasma is not approved by the FDA; however, such approval is not necessary. Potassium [Moles/Vol] 4.4 mmol/L 3.5 - 5.3 [facility] Work Phone: Sodium [Moles/Vol] 141 mmol/L 136 - 145 [facility] Work Phone: Urea nitrogen [Mass/Vol] 13 mg/dL 6 - 23 [facility] Work Phone: Renal Function Panel >60 >60 [facility] Work Phone: Comment on above: CALCULATIONS OF NIKOLE MATED GFR ARE PERFORMED USING THE MDRD STUDY EQUATION FOR THE IDMS-TRACEABLE CREATININE METHODS. CLIN CHEM 2007;53:766-72 Risk Screen - Adult Emergenc yon 08-12-2021 Risk Screen - Adult Emergency Preferred Language: Preferred Language: Preferred Language for Discussing Health Care (patient/designee)Fran carver Advanced Directives: Advance Directive/DNRno Family Violence Adult: [...] material; verbal instruction Cultural Considerationsnone Developmental Considerationsnone Mandaeism Considerationsnone Learning Assessment (Other Learner): Learning Assessment (Other Learner): Other learner availableno Pressure Injury/TB/Substance: Pressure Injury: Pressure Injury Present on Admissionno Do you have a coughno Smoking Statusnever smoker Alcohol Usedaily Drug Usedenies Admission Risk Screen: Significant IndicatorsComplete CAGE: CAGE: Is this an injured patient at a Trauma Center ([facility] [place]): no Electronic Signatures: Pavel Lopes (BR[place]NN) (Signed 12-Aug-2021 21:52) Authored: Preferred Language, Advanced Directives, Family Violence Adult, Learning Assessment (Patient), Learning Assessment (Other Learner), Pressure Injury/TB/Substance, Pressure Injury, CAGE Last Updated: 12-Aug-2021 21:52 by Pavel Lopes) [facility] TH CHEST 1 VIEWon 08-12-2021 TH CHEST 1 VIEW Patient Name: HOSEA ALVAREZ STUDY: CHEST 1 VIEW; 08/12/2021 6:30 pm INDICATION: chest pain . COMPARISON: 07/14/2021 ACCESSION NUMBER(S): [id number] ORDERING CLINICIAN: TRICE CLARK FINDINGS: AP radiograph of the chest was provided. CARDIOMEDIASTINAL SILHOUETTE: Cardiomediastinal silhouette is normal in size and configuration. LUNGS: No focal consolidation, sizeable pleural effusion, or pneumothorax is evident. ABDOMEN: No remarkable upper abdominal findings. BONES: No acute osseous changes. IMPRESSION: 1. No evidence of acute cardiopulmonary process. Electronically signed by: AMBER VILLANUEVA MD [facility] CT ANGIO CHESTon 08-12-20 CT ANGIO CHEST Patient Name: HOSEA ALVAREZ STUDY: CT ANGIO CHEST; 08/12/2021 9:29 pm INDICATION: CP, radiating to back, hx of thoracic aneurysm, Lie Flat: Yes . COMPARISON: 05/08/2021 ACCESSION NUMBER(S): [id number] ORDERING CLINICIAN: TRISTON OROZCO TECHNIQUE: Helical data [...] Electronically signed by: СВЕТЛАНА MCGOWAN, DO Normal [facility] TROPONIN Ion 08-12-2021 Troponin I.cardiac [Mass/Vol] ng/mL Normal 0.00 - 0.03 [facility] Comment on above: Result Comment: LESS THAN [...] is performed using different testing methodology at [facility] than at other [facility]. Direct result comparisons should only be made within the same method. . Biotin interference may cause falsely decreased results. Patients taking a Biotin dose of up to 5 mg/day should refrain from taking Biotin for 24 hours before sample collection. Providers may contact their laboratory for further information. Performed By: #### T ROP2 ####[id number] [place] [address] Triage - EDon 08-12-2021 Triage - ED Chart Review: ARRIVAL INFORMATION Mode of Arrival: ambulance Agency Name: [facility] CHIEF COMPLAINT HOSEA ALVAREZ is a Male patient with a chief complaint of chest pain. Triage Date/Time: 12-Aug-2021 17:23 WILMAN: 3 Vital Signs: Temperature: 98.2F ( 36.8C) Blood Pressure: 128/81 Mean: Heart Rate: 57 Respiratory Rate: 18 Pulse Oximetry: 96% on room air, no respiratory support. Height: 5 feet 6.00 inches. 167.6 CM Weight: pounds. Calculated kg. (stated) Trona Coma Scale: Best Eye Response: (E4) spontaneous [...] History Last Updated: 12-Aug-2021 17:25 by Batsheva Gray) Normal [facility] Troponin I, Serumon 08-12-20 21 Troponin I.cardiac [Mass/Vol] ng/mL See Below [facility] Work Phone: Comment on above: Reference Range: [...] is performed using different testing methodology at [facility] than at other [facility]. Direct result comparisons should only be made within the same method.. Biotin interference may cause falsely decreased results. Patients taking a Biotin dose of up to 5 mg/day should refrain from taking Biotin for 24 hours before sample collection. Providers may contact their laboratory for further information. CBC AND DIFFERENTIALon 08-10 % AUTOMATED IMMATURE GRAN 0.3 % Normal 0.0 - 0.9 [facility] Comment on above: Result Comment: Kath ture Granulocyte Count (IG) includes promyelocytes, myelocytes and metamyelocytes but does not include bands. Percent differential counts (%) should be interpreted in the context of the absolute cell counts (cells/L). Performed By: #### C BCDF ####[facility] [place], [place] [id number] Basophils (Bld) [#/Vol] 0.02 10*3/uL Normal 0.00 - 0.10 [facility] Comment on above: Performed By: #### C BCDF ####[facility] [place], [place] [phone] Basophils/100 WBC (Bld) 0.5 % Normal 0.0 - 2.0 [facility] Comment on above: Performed By: #### C BCDF ####[facility] [place], [place] [phone] Eosinophils (Bld) [#/Vol] 0.07 10*3/uL Normal 0.00 - 0.70 [facility] Comment on above: Performed By: #### C BCDF ####[facility] [facility] [place], [place] [phone] Eosinophils/100 WBC (Bld) 1.9 % Normal 0.0 - 6.0 [facility] Comment on above: Performed By: #### C BCDF ####[facility] [facility] [place], [place] [phone] Erythrocyte distribution width (RBC) [Ratio] 13.2 % Normal 11.5 - 14.5 [facility] Comment on above: Performed By: #### C BCDF ####[facility] [facility] [place], [place] [phone] Hematocrit (Bld) [Volume fraction] 36.0 % Low 41.0 - 52.0 [facility] Comment on above: Performed By: #### C BCDF ####[facility] [facility] [place], [place] [phone] Hemoglobin (Bld) [Mass/Vol] 12.4 g/dL Low 13.5 - 17.5 [facility] Comment on above: Performed By: #### C BCDF ####[facility] [facility] [place], [place] [phone] Lymphocytes (Bld) [#/Vol] 0.87 10*3/uL Low 1.20 - 4.80 [facility] Comment on above: Performed By: #### C BCDF ####[facility] [facility] [place] [phone] Lymphocytes/100 WBC (Bld) 23.2 % Normal 13.0 - 44.0 [facility] Comment on above: Performed By: #### C BCDF ####[facility] [facility] [place], [place] [phone] MCHC (RBC) [Mass/Vol] 34.4 g/dL Normal 32.0 - 36.0 [facility] Comment on above: Performed By: #### C BCDF ####[facility] [facility] [place], [place] [phone] MCV (RBC) [Entitic vol] 83 fL Normal 80 - 100 [facility] Comment on above: Performed By: #### C BCDF ####[facility] [facility] [place], [place] [phone] Monocytes (Bld) [#/Vol] 0.33 10*3/uL Normal 0.10 - 1.00 [facility] Comment on above: Performed By: #### C BCDF ####[address] [place], [place] [phone] Monocytes/100 WBC (Bld) 8.8 % Normal 2.0 - 10.0 [facility] Comment on above: Performed By: #### C BCDF ####[address] [place], [place] [phone] Neutrophils (Bld) [#/Vol] 2.45 10*3/uL Normal 1.20 - 7.70 [facility] Comment on above: Performed By: #### C BCDF ####[address] [place], [place] [phone] Neutrophils/100 WBC (Bld) 65.3 % Normal 40.0 - 80.0 [facility] Comment on above: Performed By: #### C BCDF ####[address] [place], [place] [phone] Platelets (Bld) [#/Vol] 137 10*3/uL Low 150 - 450 [facility] Comment on above: Performed By: #### C BCDF ####[address] [place], [place] [phone] RBC 4.32 x10E12/L Low 4.50 - 5.90 [facility] Comment on above: Performed By: #### C BCDF ####[address] [place], [place] [phone] WBC (Bld) [#/Vol] 3.8 10*3/uL Low 4.4 - 11.3 [facility] Comment on above: Performed By: #### C BCDF ####[address] [place], [place] [phone] COMPREHENSIVE PANELon 2020 Albumin [Mass/Vol] 4.1 g/dL Normal 3.4 - 5.0 [facility] Comment on above: Performed By: #### U A #### [facility] [address] [facility] [place], [place] [phone] ALP [Catalytic activity/Vol] 48 U/L Normal 33 - 120 [facility] Comment on above: Performed By: #### U A #### [facility] [address] [facility] [place], [place] [phone] ALT [Catalytic activity/Vol] 15 U/L Normal 10 - 52 [facility] Comment on above: Result Comment: Yanni ents treated with Sulfasalazine may generate falsely decreased results for ALT. Performed By: #### U A #### [address] [place], [place] [id number] Anion gap [Moles/Vol] 12 mmol/L Normal 10 - 20 [facility] Comment on above: Performed By: #### U A #### [facility] [id number] [place] [address] [place], [place] [phone] AST [Catalytic activity/Vol] 15 U/L Normal 9 - 39 [facility] Comment on above: Performed By: #### U A #### [facility] [address] [facility] [place], [place] [phone] Bilirubin [Mass/Vol] 0.4 mg/dL Normal 0.0 - 1.2 [facility] Comment on above: Performed By: #### U A #### [place] [id number] [facility] [place], [place] [phone] Calcium [Mass/Vol] 8.9 mg/dL Normal 8.6 - 10.3 [facility] Comment on above: Performed By: #### U A #### [facility] [address] [facility] [place], [place] [phone] Chloride [Moles/Vol] 103 mmol/L Normal 98 - 107 [facility] Comment on above: Performed By: #### U A #### [facility] [address] [place] [address] [place], [place] [phone] Creatinine [Mass/Vol] 1.08 mg/dL Normal 0.50 - 1.30 [facility] Comment on above: Performed By: #### U A #### [facility] [address] [facility] [place], [place] [phone] GFR- AM. >60 Normal >60 [facility] Comment on above: Result Comment: CALC ULATIONS OF ESTIMATED GFR ARE PERFORMED USING THE MDRD STUDY EQUATION FOR THE IDMS-TRACEABLE CREATININE METHODS. CLIN CHEM 2007;53:766-72 Performed By: #### U A #### [facility] [address] [facility] [place], [place] [phone] GFR-NON AM. >60 Normal >60 [facility] Comment on above: Performed By: #### U A #### [facility] [address] [facility] [place], [place] [phone] Glucose [Mass/Vol] 119 mg/dL High 74 - 99 [facility] Comment on above: Performed By: #### U A #### [facility] [address] [facility] [place], [place] [phone] HCO3 (Bld) [Moles/Vol] 27 mmol/L Normal 21 - 32 [facility] Comment on above: Performed By: #### U A #### [place] [address] [facility] [place], [place] [phone] Potassium [Moles/Vol] 4.1 mmol/L Normal 3.5 - 5.3 [facility] Comment on above: Performed By: #### U A #### [facility] [address] [facility] [place], [place] [phone] Protein [Mass/Vol] 6.4 g/dL Normal 6.4 - 8.2 [facility] Comment on above: Performed By: #### U A #### [facility] [address] [facility] [place], [place] [phone] Sodium [Moles/Vol] 138 mmol/L Normal 136 - 145 [facility] Comment on above: Performed By: #### U A #### [facility] [address] [place], [place] [phone] Urea nitrogen [Mass/Vol] 14 mg/dL Normal 6 - 23 [facility] Comment on above: Performed By: #### U A #### [facility] [address] [place], [place] [phone] CT ABDOMEN AND PELVIS WO CON TRASTon 08-10-2021 CT ABDOMEN AND PELVIS WO CONTRAST Patient Name: HOSEA ALVAREZ STUDY: CT ABDOMEN AND PELVIS WO CONTRAST; 08/10/2021 4:47 pm INDICATION: flank pain . COMPARISON: None ACCESSION NUMBER(S): [id number] ORDERING CLINICIAN: DEJAH LEPE TECHNIQUE: CT of [...] Electronically signed by: HOWARD MATTSON MD Normal [facility] CT Abdomen and Pelvis withou t Contraston 08-10-2021 CT Abdomen and Pelvis WO contrast Normal [facility]-José Miguel mathews [employer] Work Phone: Complete Blood Count + Diffe rentialon 08-10-2021 Basophils/100 WBC (Bld) 0.5 % 0.0 - 2.0 [facility]-[employer] Medicalkatelynn mathews [employer] Work Phone: Erythrocyte distribution width (RBC) [Ratio] [...] r 1800 Work Phone: ALP [Catalytic activity/Vol] 48 U/L 33 - 120 [facility] [employer] Work Phone: [phone] ALT With P-5'-P [Catalytic activity/Vol] 15 U/L 10 - 52 [facility] [employer] Work Phone: [phone] Comment on above: Patients treated wit h Sulfasalazine may generate falsely decreased results for ALT. Anion gap [Moles/Vol] 12 mmol/L 10 - 20 [facility] [employer] Work Phone: [phone] AST With P-5'-P [Catalytic activity/Vol] 15 U/L 9 - 39 [facility] [employer] Work Phone: [phone] Bilirubin [Mass/Vol] 0.4 mg/dL 0.0 - 1.2 [facility] [employer] Work Phone: [phone] Calcium [Mass/Vol] 8.9 mg/dL 8.6 - 10.3 [facility] [employer] Work Phone: [phone] Chloride [Moles/Vol] 103 mmol/L 98 - 107 [facility] [employer] Work Phone: [phone] CO2 [Moles/Vol] 27 mmol/L 21 - 32 [facility] [employer] Work Phone: [phone] Creatinine [Mass/Vol] 1.08 mg/dL See Below [facility] [employer] Work Phone: [phone] Comment on above: Reference Range: 0.5 0 - 1.30 Glucose [Mass/Vol] 119 mg/dL above high threshold 74 - 99 [facility] [employer] Work Phone: [phone] Potassium [Moles/Vol] 4.1 mmol/L 3.5 - 5.3 [facility] [employer] Work Phone: [phone] Protein [Mass/Vol] 6.4 g/dL 6.4 - 8.2 [facility] [employer] Work Phone: Sodium [Moles/Vol] 138 mmol/L 136 - 145 [facility]-José Miguel mathews 1800 Work Phone: Urea nitrogen [Mass/Vol] 14 mg/dL 6 - 23 [facility]José Miguel r 1800 Work Phone: No Panel Informationon 08-10 >60 >60 [facility]José Miguel mathews 1800 Work Phone: Comment on above: CALCULATIONS [...] 36.3 08-10-2021 16:23 Heart Rate (beats/min): 55 11-18-2021 16:23 Respirations (breaths/min): 16 08-10-2021 16:23 SpO2 [...] embolism Code: (more content not included)... Normal [facility] Risk Screen - Adult Emergenc yon 08-10-2021 Risk Screen - Adult Emergency Preferred Language: Preferred Language: Preferred Language for Discussing Health Care (patient/designee)Fran carver Advanced Directives: Advance Directive/DNRno Family Violence Adult: [...] instruction; written material Cultural Considerationsnone Developmental Considerationsnone Mandaeism Considerationsnone Learning Assessment (Other Learner): Learning Assessment (Other Learner): Other learner availableno Pressure Injury/TB/Substance: Pressure Injury: Do you have a coughno Smoking Statusformer smoker Alcohol Usedaily Drug Usedenies Admission Risk Screen: Significant IndicatorsComplete CAGE: CAGE: Is this an injured patient at a Trauma Center ([facility] no Electronic Signatures: Sherry Howe) (Signed 10-Aug-2021 16:28) Authored: Preferred Language, Advanced Directives, Family Violence Adult, Learning Assessment (Patient), Learning Assessment (Other Learner), Pressure Injury/TB/Substance, Pressure Injury, CAGE Last Updated: 10-Aug-2021 16:28 by Sherry Howe (RN) [facility] Triage - EDon 08-10-2021 Triage - ED [...] BMI (kg/m2): 31.541 Calculated BSA (m2) 2.03 Trona Coma Scale: Best Eye Response: (E4) spontaneous Best Motor Response: (M6) obeys commands Best Verbal Response: (V5) oriented Trona Score: 15 Cough lasting greater than 3 [...] Medical History Reviewedyes Electronic Signatures: Sherry Howe (RN) (Signed 10-Aug-2021 16:26) Authored: Quick Triage, Risk Screens, Pain, Travel History, Chart Review, Scores, Past Medical History Last Updated: 10-Aug-2021 16:26 by Sherry Howe (RN) Normal [facility] URINALYSISon 08-10-2021 Appearance (U) CLEAR Normal CLEAR [facility] Comment on above: Performed By: #### C BCDF #### [facility] [address] [facility], [place] [phone] Bilirubin Ql (U) Negative Normal NEGATIVE [facility] Comment on above: Performed By: #### C BCDF #### [place] [id number] [facility], [place] [phone] Color (U) YELLOW Normal STRAW,YELLOW [facility] Comment on above: Performed By: #### C BCDF #### [facility] [address] [facility], [place] [phone] Glucose Ql (U) Negative Normal NEGATIVE [facility] Comment on above: Performed By: #### C BCDF #### [facility] [address] [facility], [place] [phone] Hemoglobin Ql (U) Negative Normal NEGATIVE Sara onal [facility] Comment on above: Performed By: #### C BCDF #### [place] [address] [facility], [place] [address] Ketones Ql (U) Negative Normal NEGATIVE [facility] Comment on above: Performed By: #### C BCDF #### [place] [id number] [facility], [place] [phone] Leukocyte esterase Test strip Ql (U) Negative Normal NEGATIVE [facility] Comment on above: Performed By: #### C BCDF #### [facility] [address] [facility], [place] [phone] Nitrite Ql (U) Negative Normal NEGATIVE [facility] Comment on above: Performed By: #### C BCDF #### [facility] [address] [facility], [place] [address] pH (U) 5.0 [pH] Normal 5.0 - 8.0 [facility] Comment on above: Performed By: #### C BCDF #### [facility] [address] [facility], [place] [address] Protein Ql (U) Negative Normal NEGATIVE [facility] Comment on above: Performed By: #### C BCDF #### [facility] [address] [facility], [place] [address] Specific gravity (U) [Rel density] 1.020 Normal 1.005 - 1.035 [facility] Comment on above: Performed By: #### C BCDF #### [facility] [address] [facility], [place] [phone] Urobilinogen (U) [Mass/Vol] mg/dL Normal 0.0 - 1.9 [facility] Comment on above: Performed By: #### C BCDF #### [facility] [address] [facility], [place] [phone] Urinalysison 08-10-2021 Color (U) YELLOW See Below [facility] [employer] Work Phone: Comment on above: Reference Range: STR AW,YELLOW Glucose Ql (U) Negative NEGATIVE [facility] [facility] [facility] 1800 Work Phone: Ketones Ql (U) [...] 1800 Work Phone: VASC LAB Arterial Duplex t [place] 08-02-2021 VASC LAB Arterial Duplex Ultrasound [place] [address] and Vascular Lab Report Upper Arterial Duplex Ultrasound Patient Name: HOSEA ALVAREZ Reading Physician: VERONICA Melgar MD Study Date: 08/02/2021 Referring Physician: [id number] MESSINA MRN/PID: [id number] PCP: Accession/Order#: [id number] CC Report to: Date of : 1970 Technologist: Lily Zuniga [facility] Gender: M Technologist 2: Admission Status: Outpatient Location Performed: [facility] 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 Triphasic flow noted throughout. Additional Findings: Imaging AND Doppler Findings: Left PSV Waveform Radial 71 cm/s Triphasic Left Radial Diam P 2.7 mm Radial Diam M 3.1 mm Radial Diam D 2.5 mm [id number] Dill MD Final Normal [facility] VAS LAB Arterial Duplex Ultrasound Please click [...] Jul 31 2021 3:34PM EST (Author) Normal [facility] - Microbiology an d Antimicrobial susceptibilityon 07-28-2021 FLUAV RNA TATI+probe Ql (Nph) FLU A by PCR NEGATIVE (Reference Range: not available) [facility] FLUBV RNA TATI+probe Ql (Nph) FLU B by PCR NEGATIVE (Reference Range: not available) [facility] SARS-CoV-2 (COVID-19) RNA TATI+probe Ql (Unsp spec) SARS-CoV-2 by PCR NEGATIVE (NEG ) [facility] TROPONIN Ion 07-15-2021 Troponin I.cardiac [Mass/Vol] ng/mL Normal 0.00 - 0.03 [facility] Comment on above: Result Comment: LESS [...] is performed using different testing methodology at [facility] than at other [facility]. Direct result comparisons should only be made within the same method. Performed By: #### T ROP2 ####[facility] [place] [phone] CBC AND DIFFERENTIALon 07-14 % AUTOMATED IMMATURE GRAN 0.3 % Normal 0.0 - 0.9 [facility] Comment on above: Result Comment: Kath ture Granulocyte Count (IG) includes promyelocytes, myelocytes and metamyelocytes but does not include bands. Percent differential counts (%) should be interpreted in the context of the absolute cell counts (cells/L). Performed By: #### C BCDF ####[facility] [place] [phone] Basophils (Bld) [#/Vol] 0.02 10*3/uL Normal 0.00 - 0.10 [facility] Comment on above: Performed By: #### C BCDF ####[address] [id number] Basophils/100 WBC (Bld) 0.5 % Normal 0.0 - 2.0 [facility] Comment on above: Performed By: #### C BCDF ####[facility] [facility] [place], [place] [address] Eosinophils (Bld) [#/Vol] 0.08 10*3/uL Normal 0.00 - 0.70 [facility] Comment on above: Performed By: #### C BCDF ####[facility] [facility] [place], [place] [phone] Eosinophils/100 WBC (Bld) 2.2 % Normal 0.0 - 6.0 [facility] Comment on above: Performed By: #### C BCDF ####[facility] [facility] [place], [place] [phone] Erythrocyte distribution width (RBC) [Ratio] 13.0 % Normal 11.5 - 14.5 [facility] Comment on above: Performed By: #### C BCDF ####[address] [place], [place] [address] Hematocrit (Bld) [Volume fraction] 35.3 % Low 41.0 - 52.0 [facility] Comment on above: Performed By: #### C BCDF ####[place] [id number] [facility] [place], [place] [phone] Hemoglobin (Bld) [Mass/Vol] 12.1 g/dL Low 13.5 - 17.5 [facility] Comment on above: Performed By: #### C BCDF ####[place] [id number] [facility] [place] [phone] Lymphocytes (Bld) [#/Vol] 0.88 10*3/uL Low 1.20 - 4.80 [facility] Comment on above: Performed By: #### C BCDF ####[place] [address] [facility] [place], [place] [phone] Lymphocytes/100 WBC (Bld) 23.8 % Normal 13.0 - 44.0 [facility] Comment on above: Performed By: #### C BCDF ####[facility] [facility] [place], [place] [phone] MCHC (RBC) [Mass/Vol] 34.3 g/dL Normal 32.0 - 36.0 [facility] Comment on above: Performed By: #### C BCDF ####[place] [id number] [facility], [place] [phone] MCV (RBC) [Entitic vol] 83 fL Normal 80 - 100 [facility] Comment on above: Performed By: #### C BCDF ####[address], [place] [phone] Monocytes (Bld) [#/Vol] 0.34 10*3/uL Normal 0.10 - 1.00 [facility] Comment on above: Performed By: #### C BCDF ####[address], [place] [phone] Monocytes/100 WBC (Bld) 9.2 % Normal 2.0 - 10.0 [facility] Comment on above: Performed By: #### C BCDF ####[address], [place] [phone] Neutrophils (Bld) [#/Vol] 2.36 10*3/uL Normal 1.20 - 7.70 [facility] Comment on above: Performed By: #### C BCDF ####[address], [place] [address] Neutrophils/100 WBC (Bld) 64.0 % Normal 40.0 - 80.0 [facility] Comment on above: Performed By: #### C BCDF ####[address], [place] [phone] Platelets (Bld) [#/Vol] 130 10*3/uL Low 150 - 450 [facility] Comment on above: Performed By: #### C BCDF ####[address] [place], [place] [phone] RBC 4.26 x10E12/L Low 4.50 - 5.90 [facility] Comment on above: Performed By: #### C BCDF ####[address] [place], [place] [address] WBC (Bld) [#/Vol] 3.7 10*3/uL Low 4.4 - 11.3 [facility] Comment on above: Performed By: #### C BCDF ####[facility] [facility], [place] [phone] CHEST 1 VIEWon 07-14-2021 CHEST 1 VIEW Patient Name: HOSEA ALVAREZ STUDY: CHEST 1 VIEW; 07/14/2021 8:34 pm INDICATION: Chest Pain . COMPARISON: 07/10/2021 ACCESSION NUMBER(S): [id number] ORDERING CLINICIAN: SAM AQUINO FINDINGS: The cardiomediastinal silhouette and pulmonary vasculature are within normal limits. No consolidation, pleural effusion or pneumothorax. IMPRESSION: No acute cardiopulmonary process. Electronically signed by: ROBINA NIELSEN MD Normal [facility] COMPREHENSIVE PANELon 2020 Albumin [Mass/Vol] 3.9 g/dL Normal 3.4 - 5.0 [facility] Comment on above: Performed By: #### C BCDF #### [facility] [address] [facility], [place] [phone] ALP [Catalytic activity/Vol] 50 U/L Normal 33 - 120 [facility] Comment on above: Performed By: #### C BCDF #### [facility] [address] [facility], [place] [phone] ALT [Catalytic activity/Vol] 21 U/L Normal 10 - 52 [facility] Comment on above: Result Comment: Yanni ents treated with Sulfasalazine may generate falsely decreased results for ALT. Performed By: #### C BCDF #### [facility] [address] [facility], [place] [phone] Anion gap [Moles/Vol] 15 mmol/L Normal 10 - 20 [facility] Comment on above: Performed By: #### C BCDF #### [facility] [address] [facility], [place] [phone] AST [Catalytic activity/Vol] 16 U/L Normal 9 - 39 [facility] Comment on above: Performed By: #### C BCDF #### [facility] [address] [facility] [place], [place] [phone] Bilirubin [Mass/Vol] 0.3 mg/dL Normal 0.0 - 1.2 [facility] Comment on above: Performed By: #### C BCDF #### [facility] [address] [facility] [place], [place] [phone] Calcium [Mass/Vol] 9.1 mg/dL Normal 8.6 - 10.3 [facility] Comment on above: Performed By: #### C BCDF #### [facility] [address] [facility] [place] [phone] Chloride [Moles/Vol] 102 mmol/L Normal 98 - 107 [facility] Comment on above: Performed By: #### C BCDF #### [facility] [address] [facility] [place], [place] [phone] Creatinine [Mass/Vol] 1.03 mg/dL Normal 0.50 - 1.30 [facility] Comment on above: Performed By: #### C BCDF #### [facility] [address] [facility] [place] [phone] GFR- AM. >60 Normal >60 [facility] Comment on above: Result Comment: CALC ULATIONS OF ESTIMATED GFR ARE PERFORMED USING THE MDRD STUDY EQUATION FOR THE IDMS-TRACEABLE CREATININE METHODS. CLIN CHEM 2007;53:766-72 Performed By: #### C BCDF #### [facility] [address] [facility] [place] [phone] GFR-NON AM. >60 Normal >60 [facility] Comment on above: Performed By: #### C BCDF #### [facility] [address] [facility] [place] [phone] Glucose [Mass/Vol] 102 mg/dL High 74 - 99 [facility] Comment on above: Performed By: #### C BCDF #### [facility] [address] [facility] [place] [phone] HCO3 (Bld) [Moles/Vol] 25 mmol/L Normal 21 - 32 [facility] Comment on above: Performed By: #### C BCDF #### [facility] [address] [facility], [place] [phone] Potassium [Moles/Vol] 3.5 mmol/L Normal 3.5 - 5.3 [facility] Comment on above: Performed By: #### C BCDF #### [facility] [address] [facility] [place] [phone] Protein [Mass/Vol] 6.6 g/dL Normal 6.4 - 8.2 [facility] Comment on above: Performed By: #### C BCDF #### [facility] [address] [facility], [place] [phone] Sodium [Moles/Vol] 138 mmol/L Normal 136 - 145 [facility] Comment on above: Performed By: #### C BCDF #### [facility] [address] [facility], [place] [phone] Urea nitrogen [Mass/Vol] 17 mg/dL Normal 6 - 23 [facility] Comment on above: Performed By: #### C BCDF #### [facility] [address] [facility] [place] [phone] Complete Blood Count + Lorena conner 07-14-2021 Basophils/100 WBC (Bld) 0.5 % 0.0 - 2.0 [facility] [address] [facility] Work Phone: Erythrocyte distribution width (RBC) [Ratio] 13.0 % See Below [facility] [address] [facility] Work Phone: Comment on above: Reference Range: 11. 5 - 14.5 Hematocrit (Bld) [Volume fraction] 35.3 % below low threshold See Below [facility] [address] [facility] Work Phone: Comment on above: Reference Range: 41. 0 - 52.0 Hemoglobin (Bld) [Mass/Vol] 12.1 g/dL below low threshold See Below [facility] [address] [facility] Work Phone: Comment on above: Reference Range: 13. 5 - 17.5 Lymphocytes/100 WBC (Bld) 23.8 % See Below [facility] [address] [facility] Work Phone: Comment on above: Reference Range: 13. 0 - 44.0 MCHC (RBC) [Mass/Vol] 34.3 g/dL See Below [facility] [address] [facility] Work Phone: Comment on above: Reference Range: 32. 0 - 36.0 MCV (RBC) [Entitic vol] 83 fL 80 - 100 [facility] [address] [facility] Work Phone: Monocytes/100 WBC (Bld) 9.2 % 2.0 - 10.0 [facility] [address] [facility] Work Phone: Neutrophils/100 WBC (Bld) 64.0 % See Below [facility] [address] [facility] Work Phone: Comment on above: Reference Range: 40. 0 - 80.0 Platelets (Bld) [#/Vol] 130 10*3/uL below low threshold 150 - 450 [facility] [address] [facility] Work Phone: RBC (Bld) [#/Vol] 4.26 {x10E12/L} below low threshold See Below [facility] [address] [facility] Work Phone: Comment on above: Reference Range: 4.5 0 - 5.90 WBC (Bld) [#/Vol] 3.7 10*3/uL below low threshold 4.4 - 11.3 [facility] [address] [facility] Work Phone: Complete Blood Count + Differential 0.02 {x10E9/L} See Below [facility] [address] [facility] Work Phone: Comment on above: Reference Range: 0.0 0 - 0.10 Complete Blood Count + Differential 0.08 {x10E9/L} See Below [facility] [address] [facility] Work Phone: Comment on above: Reference Range: 0.0 0 - 0.70 Complete Blood Count + Differential 0.34 {x10E9/L} See Below [facility] Work Phone: Comment on above: Reference Range: 0.1 0 - 1.00 Complete Blood Count + Differential 0.88 {x10E9/L} below low threshold See Below [facility] [address] [facility] Work Phone: Comment on above: Reference Range: 1.2 0 - 4.80 Complete Blood Count + Differential 2.36 {x10E9/L} See Below [facility] [address] [facility] Work Phone: Comment on above: Reference Range: 1.2 0 - 7.70 Complete Blood Count + Differential 2.2 % 0.0 - 6.0 [place] [address] [facility] Work Phone: Complete Blood Count + Differential 0.3 % 0.0 - 0.[address] Work Phone: Comment on above: Immature Granulocyte Count (IG) includes promyelocytes, myelocytes and metamyelocytes but does not include bands. Percent differential counts (%) should be interpreted in the context of the absolute cell counts (cells/L). Laboratory - Chemistry and C hemistry - challengeon 07-14-2021 Albumin BCP dye [Mass/Vol] 3.9 g/dL 3.4 - 5.[address] Work Phone: ALP [Catalytic activity/Vol] 50 U/L 33 - 120 [facility] [address] [facility] Work Phone: ALT With P-5'-P [Catalytic activity/Vol] 21 U/L 10 - 52 [facility] [address] [facility] Work Phone: Comment on above: Patients treated wit h Sulfasalazine may generate falsely decreased results for ALT. Anion gap [Moles/Vol] 15 mmol/L 10 - 20 [facility] [address] [facility] Work Phone: AST With P-5'-P [Catalytic activity/Vol] 16 U/L 9 - 39 [facility] [address] [facility] Work Phone: [phone] Bilirubin [Mass/Vol] 0.3 mg/dL 0.0 - 1.2 [facility] [address] [facility] Work Phone: [phone] Calcium [Mass/Vol] 9.1 mg/dL 8.6 - 10.3 [facility] [address] [facility] Work Phone: [phone] Chloride [Moles/Vol] 102 mmol/L 98 - 107 [facility] [address] [facility] Work Phone: [phone] CO2 [Moles/Vol] 25 mmol/L 21 - 32 [facility] [address] [facility] Work Phone: [phone] Creatinine [Mass/Vol] 1.03 mg/dL See Below [facility] [address] [facility] Work Phone: [phone] Comment on above: Reference Range: 0.5 0 - 1.30 Glucose [Mass/Vol] 102 mg/dL above high threshold 74 - 99 [facility] [address] [facility] Work Phone: [phone] Potassium [Moles/Vol] 3.5 mmol/L 3.5 - 5.3 [facility] [address] [facility] Work Phone: [phone] Protein [Mass/Vol] 6.6 g/dL 6.4 - 8.2 [facility] [address] [facility] Work Phone: [phone] Sodium [Moles/Vol] 138 mmol/L 136 - 145 [facility] [address] [facility] Work Phone: [phone] Urea nitrogen [Mass/Vol] 17 mg/dL 6 - 23 [facility] [address] [facility] Work Phone: Anion gap [Moles/Vol] Anion Gap 13 MMOL/ L (0-19 MMOL/L) 0 - 19 MMOL/L S Calcium [Mass/Vol] Calcium 9.1 MG/DL (8.5-10.4 MG/DL) 8.5 - 10.4 MG/DL [facility] Chloride [Moles/Vol] Chloride 103 MMOL/L (97-107 MMOL/L) 97 - 107 MMOL/L [facility] CO2 [Moles/Vol] Carbon Dioxide 24 MM OL/L (24-31 MMOL/L) 24 - 31 MMOL/L [facility] Creatinine [Mass/Vol] Creatinine R 0.9 M G/DL (0.4-1.6 MG/DL) 0.4 - 1.6 MG/DL [facility] GFR/1.73 sq M.predicted MDRD (S/P/Bld) [Vol rate/Area] EGFR 95 mL/min/1.73 m2 (Reference Range: not available) GFR ml/min/1.73m2 Stage ----- 90 1 60-89 2 30-59 3 15-29 4 <15 5 For -Americans, multiply EGFR result by 1.210 Calculation not validated for patients under 18 years of age. Performed at [address] [address] [facility] Glucose [Mass/Vol] Glucose 94 MG/DL (65 -99 MG/DL) 65 - 99 MG/DL [facility] Potassium [Moles/Vol] Potassium R 4.4 MM OL/L (3.4-5.1 MMOL/L) 3.4 - 5.1 MMOL/L [facility] Sodium [Moles/Vol] Sodium 140 MMOL/L (133-145 MMOL/L) 133 - 145 MMOL/L [facility] Troponin T.cardiac [Mass/Vol] HS Troponin T,Gen [...] until 8 hours following last biotin administration. [employer] Urea nitrogen [Mass/Vol] BUN 12 MG/DL (8-25 MG/DL) 8 - 25 MG/DL [employer] Urea nitrogen/Creatinine [Mass ratio] BUN Creatinine Ratio 13.3 RATIO (8-21 RATIO) 8 - 21 RATIO [employer] Laboratory - Hematology and Cell countson 07-14-2021 Basophils (Bld) [#/Vol] Abs Baso 0.02 K/UL (0.00-0.22 K/UL) 0.00 - 0.22 K/UL [employer] Basophils/100 WBC (Bld) Basophil 0.60 % (0-1 %) 0 - 1 % [employer] Differential cell count method Nom (Bld) Diff Type AUTO DIFF (Reference Range: not available) [facility] [employer] Eosinophils (Bld) [#/Vol] Abs Eos 0.09 K/UL (0-0.45 K/UL) 0 - 0.45 K/UL [employer] Eosinophils/100 WBC (Bld) Eosinophil 2.60 % (0-3 %) 0 - 3 % [employer] Erythrocyte distribution width (RBC) [Entitic vol] RDW SD 39.3 FL (37.0-54.0 FL) 37.0 - 54.0 FL [employer] Erythrocyte distribution width (RBC) [Ratio] RDW CV [...] K/UL S Lymphocytes (Bld) [#/Vol] Abs Lymph 0.84 K/UL L (1.2-3.2 K/UL) Low 1.2 - 3.2 K/UL S Lymphocytes/100 WBC (Bld) Lymphocyte 23.90 % (20-40 %) 20 - 40 % S MCH (RBC) [Entitic mass] MCH 27.9 PG (26-34 PG) 26 - 34 PG S MCHC (RBC) [Mass/Vol] MCHC 32.8 % (31-37 %) 31 - 37 % S MCV (RBC) [Entitic vol] MCV 84.9 FL (80-100 FL) 80 - 100 FL S Monocytes (Bld) [#/Vol] Abs Wilbarger 0.41 K/UL (0-0.8 K/UL) 0 - 0.8 K/UL S Monocytes/100 WBC (Bld) Monocyte 11.70 % H (0-8 %) High 0 - 8 % [facility] Neutrophils (Bld) [#/Vol] Abs.Neut.Calculated 2.13 K/UL (Reference Range: not available) Performed at [address] [address] [facility] Neutrophils (Bld) [#/Vol] Abs Neut 2.13 K/UL (1.8-7.7 K/UL) 1.8 - 7.7 K/UL [facility] Neutrophils.immature/ 100 WBC (Bld) Immature Neut % 0.60 % (0.0-1.0 %) 0.0 - 1.0 % [facility] Nucleated RBC/100 WBC (Bld) [Ratio] NRBCs 0 /100 WBC (0 /100 WBC) [facility] Platelet mean volume (Bld) [Entitic vol] MPV 11.4 CU (7.0-12.6 CU) 7.0 - 12.6 CU [facility] Platelets (Bld) [#/Vol] PLT 144 K/UL L (150-450 K/UL) Low 150 - 450 K/UL [facility] RBC (Bld) [#/Vol] RBC 4.63 M/UL (4.5-5 .5 M/UL) 4.5 - 5.5 M/UL [facility] Segmented neutrophils/100 WBC (Bld) Granulocyte 60.60 % (50-70 %) 50 - 70 % [facility] WBC (Bld) [#/Vol] WBC 3.5 K/UL L (4.5- 11.0 K/UL) Low 4.5 - 11.0 K/UL [facility] No Panel Informationon 07-14 >60 >60 [facility] [address] [facility] Work Phone: Comment on above: CALCULATIONS OF NIKOLE MATED GFR ARE PERFORMED USING THE MDRD STUDY EQUATION FOR THE IDMS-TRACEABLE CREATININE METHODS. CLIN CHEM 2007;53:766-72 HS Troponin T Delta 0 (0-4 ) Performed at [address] [address] 0 - 4 [facility] Provider Note - ED v3on 06-24 Provider [...] SIGNS: T PRBP SpO2O2(LPM) %FiO2 Method 14-Jul-2021 20:23:[id number]/85 98 room air, no respiratory support MDM [...] Genitourinary: Discharge, (more content not included)... Normal [facility] Radiologyon 07-14-2021 XR Chest Single view Normal [facility] [address] [place] [address] Ctr Work Phone: Risk Screen - Adult Emergenc yon 07-14-2021 Risk Screen - Adult Emergency Preferred Language: Preferred Language: Preferred Language for Discussing Health Care (patient/designee)Fran carver Advanced Directives: Advance Directive/DNRno Family Violence Adult: Abuse Screen: Are you or have you been threatened or abused physically, emotionally, or sexually by anyoneno Learning Assessment (Patient): Learning Assessment (Patient): Patient is Able to be Assessed for Learningyes Factors Influencing Readiness to Learninterest in learning Factors that Impact Ability to Learnnone Devices/Methods Used to Communicatenone Learning Preferencesverbal instruction Cultural Considerationsnone Developmental Considerationsnone Mandaeism Considerationsnone Learning Assessment (Other Learner): Learning Assessment (Other Learner): Other learner availableno Pressure Injury/TB/Substance: Pressure Injury: Pressure Injury Present on Admissionno Do you have a coughno Smoking Statusnever smoker Admission Risk Screen: Significant IndicatorsComplete CAGE: CAGE: Is this an injured patient at a Trauma Center ([facility] [place]): no Electronic Signatures: Kasey Campos (RN) (Signed 14-Jul-2021 20:25) Authored: Preferred Language, Advanced Directives, Family Violence Adult, Learning Assessment (Patient), Learning Assessment (Other Learner), Pressure Injury/TB/Substance, Pressure Injury, CAGE Last Updated: 14-Jul-2021 20:25 by Kasey Campos (BROOK[place]NN) Normal [facility] TROPONIN Ion 07-14-2021 Troponin I.cardiac [Mass/Vol] ng/mL Normal 0.00 - 0.03 [facility] Comment on above: Result Comment: LESS [...] is performed using different testing methodology at [facility] than at [facility]. Direct result comparisons should only be made within the same method. Performed By: #### T ROP2 ####[facility] [place], [place] [id number] Triage - EDon 07-14-2021 Triage - ED [...] BMI (kg/m2): 28.834 Calculated BSA (m2) 2.03 [place] Coma Scale: Best Eye Response: (E4) spontaneous Best Motor Response: (M6) obeys commands Best Verbal Response: (V5) oriented Trona Score: 15 Cough lasting greater than 3 [...] Last Updated: 14-Jul-2021 20:27 by Ema Tinoco (BROOK[place]NN) Normal [facility] Troponin I, Serumon 07-14-20 21 Troponin I.cardiac [Mass/Vol] ng/mL See Below [facility] [address] [facility] Work Phone: Comment on [...] is performed using different testing methodology at [facility] than [facility]. Direct result comparisons should only be made within the same method. Troponin I.cardiac [Mass/Vol] ng/mL See Below [facility] [address] [facility] Work Phone: Comment on [...] is performed using different testing methodology at [facility] than [facility]. Direct result comparisons should only be made within the same method. Laboratory - Chemistry and C hemistry - challengeon 07-11-2021 Troponin T.cardiac [Mass/Vol] HS [...] until 8 hours following last biotin administration. [facility] Anion gap [Moles/Vol] Anion Gap 9 MMOL/L (0-19 MMOL/L) 0 - 19 MMOL/L S Calcium [Mass/Vol] Calcium 8.8 MG/DL (8.5-10.4 MG/DL) 8.5 - 10.4 MG/DL [facility] Chloride [Moles/Vol] Chloride 102 MMOL/L (97-107 MMOL/L) 97 - 107 MMOL/L [facility] CO2 [Moles/Vol] Carbon Dioxide 27 MM OL/L (24-31 MMOL/L) 24 - 31 MMOL/L [facility] Creatinine [Mass/Vol] Creatinine R 1.0 M G/DL (0.4-1.6 MG/DL) 0.4 - 1.6 MG/DL [facility] GFR/1.73 sq M.predicted MDRD (S/P/Bld) [Vol rate/Area] EGFR 84 mL/min/1.73 m2 (Reference Range: not available) GFR ml/min/1.73m2 Stage ----- 90 1 60-89 2 30-59 3 15-29 4 <15 5 For -Americans, multiply EGFR result by 1.210 Calculation not validated for patients under 18 years of age. Performed at [address] [address] [facility] Glucose [Mass/Vol] Glucose 94 MG/DL (65 -99 MG/DL) 65 - 99 MG/DL [facility] Potassium [Moles/Vol] Potassium R 4.0 MM OL/L (3.4-5.1 MMOL/L) 3.4 - 5.1 MMOL/L [facility] Sodium [Moles/Vol] Sodium 138 MMOL/L (133-145 MMOL/L) 133 - 145 MMOL/L [facility] Troponin T.cardiac [Mass/Vol] HS Troponin T,Gen [...] until 8 hours following last biotin administration. [employer] Urea nitrogen [Mass/Vol] BUN 15 MG/DL (8-25 MG/DL) 8 - 25 MG/DL [employer] Urea nitrogen/Creatinine [Mass ratio] BUN Creatinine Ratio 15.0 RATIO (8-21 RATIO) 8 - 21 RATIO [employer] Laboratory - Hematology and Cell countson 07-11-2021 Basophils (Bld) [#/Vol] Abs Baso 0.01 K/UL (0.00-0.22 K/UL) 0.00 - 0.22 K/UL [employer] Basophils/100 WBC (Bld) Basophil 0.30 % (0-1 %) 0 - 1 % [facility] [employer] Differential cell count method Nom (Bld) Diff Type AUTO DIFF (Reference Range: not available) [facility] [employer] Eosinophils (Bld) [#/Vol] Abs Eos 0.06 K/UL (0-0.45 K/UL) 0 - 0.45 K/UL [facility] [employer] Eosinophils/100 WBC (Bld) Eosinophil 1.80 % (0-3 %) 0 - 3 % [facility] [employer] Erythrocyte distribution width (RBC) [Entitic vol] RDW SD 39.7 FL (37.0-54.0 FL) 37.0 - 54.0 FL [facility] [employer] Erythrocyte distribution width (RBC) [Ratio] RDW CV 12.8 % (11.7-15.0 %) 11.7 - 15.0 % [employer] Hematocrit (Bld) [Volume fraction] HCT 37.4 % L (41-50 %) Low 41 - 50 % S Hemoglobin (Bld) [Mass/Vol] HGB 12.4 GM/DL L (13.5-16.5 GM/DL) Low 13.5 - 16.5 GM/DL S Immature granulocytes (Bld) [#/Vol] Abs Imm Neut 0.01 K/UL (0.0-0.1 K/UL) 0.0 - 0.1 K/UL S Leukocyte morphology finding Nom (Bld) WBC Morphology SMEAR REVIEWED AND FOUND CONSISTENT WITH AUTOMATED DIFFERENTIAL (Reference Range: not available) [facility] Lymphocytes (Bld) [#/Vol] Abs Lymph 0.82 K/UL L (1.2-3.2 K/UL) Low 1.2 - 3.2 K/UL [facility] Lymphocytes/100 WBC (Bld) Lymphocyte 24.80 % (20-40 %) 20 - 40 % S MCH (RBC) [Entitic mass] MCH 28.4 PG (26-34 PG) 26 - 34 PG S MCHC (RBC) [Mass/Vol] MCHC 33.2 % (31-37 %) 31 - 37 % [facility] MCV (RBC) [Entitic vol] MCV 85.6 FL (80-100 FL) 80 - 100 FL [facility] Monocytes (Bld) [#/Vol] Abs Wilbarger 0.36 K/UL (0-0.8 K/UL) 0 - 0.8 K/UL [facility] Monocytes/100 WBC (Bld) Monocyte 10.90 % H (0-8 %) High 0 - 8 % [facility] Neutrophils (Bld) [#/Vol] Abs.Neut.Calculated 2.04 K/UL (Reference Range: not available) Performed at [facility] [address] [place] [id number] [facility] Neutrophils (Bld) [#/Vol] Abs Neut 2.04 K/UL (1.8-7.7 K/UL) 1.8 - 7.7 K/UL [facility] Neutrophils.immature/ 100 WBC (Bld) Immature Neut % 0.30 % (0.0-1.0 %) 0.0 - 1.0 % [facility] Nucleated RBC/100 WBC (Bld) [Ratio] NRBCs 0 /100 WBC (0 /100 WBC) [facility] Platelet mean volume (Bld) [Entitic vol] MPV 11.2 CU (7.0-12.6 CU) 7.0 - 12.6 CU [facility] Platelets (Bld) [#/Vol] PLT 140 K/UL L (150-450 K/UL) SAMPLE INTEGRITY CHECKED RESULT CHECKED CONSISTENT WITH PREVIOUS RESULT Low 150 - 450 K/UL [facility] Platelets LM Ql (Bld) Platelet Estimate CONSISTENT WITH REPORTED RESULTS (Reference Range: not available) [facility] RBC (Bld) [#/Vol] RBC 4.37 M/UL L (4.5 -5.5 M/UL) Low 4.5 - 5.5 M/UL [facility] RBC morphology finding Nom (Bld) RBC Morphology CONSISTENT WITH REPORTED RESULTS (Reference Range: not available) [facility] Segmented neutrophils/100 WBC (Bld) Granulocyte 61.90 % (50-70 %) 50 - 70 % [facility] WBC (Bld) [#/Vol] WBC 3.2 K/UL L (4.5- 11.0 K/UL) Low 4.5 - 11.0 K/UL [facility] Laboratory - Microbiology an d Antimicrobial susceptibilityon 10-19-2021 FLUAV RNA TATI+probe Ql (Nph) FLU A by PCR NEGATIVE (Reference Range: not available) [facility] FLUBV RNA TATI+probe Ql (Nph) FLU B by PCR NEGATIVE (Reference Range: not available) [facility] SARS-CoV-2 (COVID-19) RNA TATI+probe Ql (Unsp spec) SARS-CoV-2 by PCR NEGATIVE (NEG ) [facility] No Panel Informationon 07-11 HS Troponin T Delta 0 (0-4 ) Performed at [address] [address] - 4 [facility] XR Chest 2 Views (PA and lat) (Reference Range: not available) *FINAL Date of Service: 07/11/2021 19:22 Adm #: [id number] Reading Dr:GALA DIA Signoff Dr: GALA DIA PROCEDURE: CHEST 2 VIEW - IXR 0020 REASON FOR EXAM: Chest Pain RESULT: CLINICAL HISTORY: Chest pain TECHNIQUE: 2 views of the chest were performed. FINDINGS: Cardiac silhouette: Normal. Mediastinum: Unremarkable. Pulmonary vascularity: Normal. Lungs: No infiltrates. Pleura: No effusion.. Bony structures: Unremarkable. IMPRESSION: No acute abnormalities. [id number] This report has been produced using speech recognition. Original Interpreting Physician: GALA DIA MD Original Transcribed [facility]/Date: [facility] Jul 11 2021 8:18P Original Electronically Signed by/Date: GALA DIA MD Jul 11 2021 8:18P Addendum Interpreting Physician: Addendum Transcribed by/Date: NO ADDENDUM Addendum Electronically Signed by/Date: [facility] HS Troponin T Delta 0 (0-4 ) Performed at [address] [address] 0 - 4 [facility] CHEST 2 VIEW PA AND LATon CHEST 2 VIEW PA AND LAT Patient Name: HOSEA ALVAREZ STUDY: TH CHEST 2 VIEW PA AND LAT; 07/10/2021 3:28 pm INDICATION: middle back pain, hx gerd, htn, thorasic aneurysm R07.9: Chest pain M54.9: Acute back pain. COMPARISON: None. ACCESSION NUMBER(S): [id number] ORDERING CLINICIAN: REYNA RICH FINDINGS: CHEST PA, LATERAL CARDIOMEDIASTINAL SILHOUETTE: Cardiomediastinal silhouette is normal in size and configuration. Tortuosity of the descending thoracic aorta is seen. LUNGS: Lungs are clear. ABDOMEN: No remarkable upper abdominal findings. BONES: No acute osseous changes. IMPRESSION: 1. No evidence of acute cardiopulmonary process. No change from 07/04/2021. Electronically signed by: BREANA BERMUDEZ MD Normal [facility] Office Visit (Urgent Care)on 07-10-2021 Follow-up visit Diagnoses/Problems Assessed Former smoker (V15.82) (Z87.891) Chest pain (786.50) (R07.9) Acute back pain (724.5) (M54.9) Orders Acute back pain Electrocardiogram EKG; Status:Complete; Done: 10Jul2021 Perform:[place] [facility]; Due:08Oct2021; Last Updated By:Silvina Edgar; 07/10/2021 3:05:55 [...] Former smoker Tobacco Use Screening; Status:Complete; Done: 10Jul2021 Perform:Not Applicable;Ordered; For:SocHx: Former smoker; Ordered By:Silvina [...] Tylenol as needed. Patient should see his shoe polisher Dr. Beckford tomorrow. If chest pain worsens [...] stenosis, alcohol abuse, pulmonary embolism presents to [facility] urgent care for 8/10 left scapular pain. Pain started about 1 hour ago. It has only been in the back. No chest pain, shortness of breath, arm, jaw or shoulder pain, vision changes, fatigue, dyspnea on exertion, headache. [facility] today for evaluation but states his wait time exceeded his expectations to he left and came here to urgent care. PMHx includes he was admitted for chest pain 07-05 at [facility]. He had some increased troponin elevation and [...] up has appointment with Dr. Beckford, his shoe polisher tomorrow. Active Problems Problems Acute back pain [...] Oral Solution (more content not included)... Normal [facility] XR Chest 2 Views Normal [facility]2 Work Phone: Tobacco Screening.on 021 Fall risk assessment a) No falls within the last year [facility] Work Phone: Tobacco use status CPHS b) No [facility] Work Phone: BASIC METABOLIC PANELon 06-23 ANION GAP Canceled Normal [facility] Comment on above: Order Comment: TEST TROPONIN I WAS CANCELLED, 02/27/2021 14:30 discharged. Performed By: #### T ROP2 #### [facility] [address] [place] [address] BICARBONATE Canceled Normal [facility] Comment on above: Order Comment: TEST TROPONIN I WAS CANCELLED, 02/27/2021 14:30 discharged. Performed By: #### T ROP2 #### [facility] [address] [place] [address] CALCIUM Canceled Normal [facility] Comment on above: Order Comment: TEST TROPONIN I WAS CANCELLED, 02/27/2021 14:30 discharged. Performed By: #### T ROP2 #### [facility] [address] [place] [address] CHLORIDE Canceled Normal [facility] Comment on above: Order Comment: TEST TROPONIN I WAS CANCELLED, 02/27/2021 14:30 discharged. Performed By: #### T ROP2 #### [facility] [id number] [place] [address] CREATININE Canceled Normal [facility] Comment on above: Order Comment: TEST TROPONIN I WAS CANCELLED, 02/27/2021 14:30 discharged. Performed By: #### T ROP2 #### [facility] [address] [place] [address] GFR- AM. Canceled Normal [facility] Comment on above: Order Comment: TEST TROPONIN I WAS CANCELLED, 02/27/2021 14:30 discharged. Result Comment: CALC ULATIONS OF ESTIMATED GFR ARE PERFORMED USING THE MDRD STUDY EQUATION FOR THE IDMS-TRACEABLE CREATININE METHODS. CLIN CHEM 2007;53:766-72 Performed By: #### T ROP2 #### [facility] [address] [facility] [address] GFR-NON AM. Canceled Normal [facility] Comment on above: Order Comment: TEST TROPONIN I WAS CANCELLED, 02/27/2021 14:30 discharged. Performed By: #### T ROP2 #### [facility] [address] [place] [address] GLUCOSE Canceled Normal [facility] Comment on above: Order Comment: TEST TROPONIN I WAS CANCELLED, 02/27/2021 14:30 discharged. Performed By: #### T ROP2 #### [facility] [address] [facility] [address] POTASSIUM Canceled Normal [facility] Comment on above: Order Comment: TEST TROPONIN I WAS CANCELLED, 02/27/2021 14:30 discharged. Performed By: #### T ROP2 #### [facility] [id number] [place] [address], [place] [address] SODIUM Canceled Normal [facility] Comment on above: Order Comment: TEST TROPONIN I WAS CANCELLED, 02/27/2021 14:30 discharged. Performed By: #### T ROP2 #### [facility] [id number] [place] [address], [place] [address] UREA NITROGEN Canceled Normal [facility] Comment on above: Order Comment: TEST TROPONIN I WAS CANCELLED, 02/27/2021 14:30 discharged. Performed By: #### T ROP2 #### [facility] [address] [place] [address] CBCon 07-06-2021 HCT Canceled Normal [facility] Comment on above: Order Comment: TEST CBC WAS CANCELLED, 07/06/2021 02:11 Performed By: #### C BC #### [facility] [address] [place] [address] HGB Canceled Normal [facility] Comment on above: Order Comment: TEST CBC WAS CANCELLED, 07/06/2021 02:11 Performed By: #### C BC #### [facility] [address] [facility] [address] MCHC Canceled Normal [facility] Comment on above: Order Comment: TEST CBC WAS CANCELLED, 07/06/2021 02:11 Performed By: #### C BC #### [facility] [address] [place] [address] MCV Canceled Normal [facility] Comment on above: Order Comment: TEST CBC WAS CANCELLED, 07/06/2021 02:11 Performed By: #### C BC #### [facility] [address] [place] [address] NUCLEATED RBC Canceled Normal [facility] Comment on above: Order Comment: TEST CBC WAS CANCELLED, 07/06/2021 02:11 Performed By: #### C BC #### [facility] [address] [place] [address] PLT Canceled Normal [facility] Comment on above: Order Comment: TEST CBC WAS CANCELLED, 07/06/2021 02:11 Performed By: #### C BC #### [facility] [address] [place] [address] RBC Canceled Normal [facility] Comment on above: Order Comment: TEST CBC WAS CANCELLED, 07/06/2021 02:11 Performed By: #### C BC #### [facility] [address] [place] [address] RDW-CV Canceled Normal [facility] Comment on above: Order Comment: TEST CBC WAS CANCELLED, 07/06/2021 02:11 Performed By: #### C BC #### [facility] [address] [place] [address] WBC Canceled Normal [facility] Comment on above: Order Comment: TEST CBC WAS CANCELLED, 07/06/2021 02:11 Performed By: #### C BC #### [facility] [address] [place] [address] Admission Risk Screen - Adul ton 07-05-2021 [...] Learning Preferencesverbal instruction Cultural Considerationsnone Developmental Considerationsnone Mandaeism Considerationsreligious considerations [facility] Learning Assessment (Other Learner): Other learner availableno Depression Screen: During the past month, have you often been bothered by feeling down, depressed or hopelessno During the past month, have you often had little interest or pleasure in doing thingsno Have you had any thoughts of harming anyone elseno [place] Suicide: Risk Screen Not Applicable/Able to Answerable to be screened In the Past Month: Have you wished you were or could go to sleep and not wake upno In the Past Month: Have you had any actual thoughts of killing yourselfno Lifetime: Have you ever done, started to do, or prepared to do anything to end your lifeno Imperial Suicide Risknegative Adult Nutrition Screen: Have you [...] Spiritual Screen: Are there any cultural, spiritual, taoist practices/values/needs that are important for us to knowno CAGE: Is this an injured patient at a Trauma Center ([facility]/[place]): no Vaccinations: Vaccination - Influenza Vaccination Screen: Is it flu season (between and December 21)Yes Screening for identified contraindications to (more content not included)... Normal [facility] BASIC METABOLIC PANELon 10-1 Anion gap [Moles/Vol] 12 mmol/L Normal 10 - 20 [facility] Comment on above: Performed By: #### T ROP2 #### [facility] [address] [place] [address] Calcium [Mass/Vol] 9.0 mg/dL Normal 8.6 - 10.3 [facility] Comment on above: Performed By: #### T ROP2 #### [facility] [address] [place] [address] Chloride [Moles/Vol] 102 mmol/L Normal 98 - 107 [facility] Comment on above: Performed By: #### T ROP2 #### [facility] [address] [place] [address] Creatinine [Mass/Vol] 0.93 mg/dL Normal 0.50 - 1.30 [facility] Comment on above: Performed By: #### T ROP2 #### [facility] [address] [place] [address] GFR- AM. >60 Normal >60 [facility] Comment on above: Result Comment: CALC ULATIONS OF ESTIMATED GFR ARE PERFORMED USING THE MDRD STUDY EQUATION FOR THE IDMS-TRACEABLE CREATININE METHODS. CLIN CHEM 2007;53:766-72 Performed By: #### T ROP2 #### [facility] [address] [place] [address] GFR-NON AM. >60 Normal >60 [facility] Comment on above: Performed By: #### T ROP2 #### [facility] [address] [place] [address] Glucose [Mass/Vol] 109 mg/dL High 74 - 99 [facility] Comment on above: Performed By: #### T ROP2 #### [facility] [address] [place] [address] HCO3 (Bld) [Moles/Vol] 27 mmol/L Normal 21 - 32 [facility] Comment on above: Performed By: #### T ROP2 #### [facility] [address] [place] [address] Potassium [Moles/Vol] 4.1 mmol/L Normal 3.5 - 5.3 [facility] Comment on above: Performed By: #### T ROP2 #### [facility] [address] [place] [address] Sodium [Moles/Vol] 137 mmol/L Normal 136 - 145 [facility] Comment on above: Performed By: #### T ROP2 #### [facility] [address] [place] [address] Urea nitrogen [Mass/Vol] 17 mg/dL Normal 6 - 23 [facility] Comment on above: Performed By: #### T ROP2 #### [facility] [address] [place] [address] CBCon 07-05-2021 Erythrocyte distribution width (RBC) [Ratio] 12.9 % Normal 11.5 - 14.5 [facility] Comment on above: Performed By: #### C BC #### [facility] [address] [place] [address] Hematocrit (Bld) [Volume fraction] 41.1 % Normal 41.0 - 52.0 [facility] Comment on above: Performed By: #### C BC #### [facility] [address] [place] [address] Hemoglobin (Bld) [Mass/Vol] 13.3 g/dL Low 13.5 - 17.5 [facility] Comment on above: Performed By: #### C BC #### [facility] [address] [place] [address] MCHC (RBC) [Mass/Vol] 32.4 g/dL Normal 32.0 - 36.0 [facility] Comment on above: Performed By: #### C BC #### [facility] [address] [place] [address] MCV (RBC) [Entitic vol] 87 fL Normal 80 - 100 [facility] Comment on above: Performed By: #### C BC #### [facility] [address] [place] [address] Platelets (Bld) [#/Vol] 137 10*3/uL Low 150 - 450 [facility] Comment on above: Performed By: #### C BC #### [facility] [address] [place] [address] RBC 4.74 x10E12/L Normal 4.50 - 5.90 [facility] Comment on above: Performed By: #### C BC #### [facility] [address] [place] [address] WBC (Bld) [#/Vol] 3.0 10*3/uL Low 4.4 - 11.3 [facility] Comment on above: Performed By: #### C BC #### [facility] [address] [place] [address] Consult-Cardiologyon 021 Consult-Cardiology Service: Service: Cardiology Consult: [...] in this area as well as in [facility] where he has family as well. Has [...] done next week with Dr. Lott at [facility]. Has been dismissed from other Cardiology practice d/t noncompliance, refusal to complete testing/noncompliant with medications as well as profane behavior toward staff/other patients in the waiting room. Also states he has an appointment with a shoe polisher at [facility] (Dr. Mojica) as a new patient [...] GI Upset Objective: Objective Information: T PRBPSpO2 Value36.24010936/8695% Date/Time07/05 5: 5: 5: 8: 5:16 Range(36.6C [...] a day (more content not included)... Normal [facility] Discharge Planning [id number] 1 Discharge Planning Note2 Discharge Planning: Needs Prior to Discharge (ex. Home Care Orders, IV/O2 prescriptions) none Discharge Barriersmedical Planned Dispositionhome Discharge Destinationhome Discharge Transportation [facility] from [facility] Anticipated Discharge [id number] Discharge Planning 07/05/21 1227: Transitional Care Coordinating [...] d/c home today. Will continue to follow. Christine Carpio RN-TCC Assessment: Discharge Planning Assessment [id number] Discharge Planning Assessment Completed byChristine Carpio RN-TCC Lives Withalone(1) Living Arrangementsapartment(1) Stated Reason for Admissionchest pressure (1) [place]rived [place] ([place]) PCPDr. Viral Amado Resource/Environmental Concernsnone(1) Anticipated Transition [place](1) Services Anticipated at Transitionnone(1) [place] Anticipated Discharge Facility/Level of Care NeedsHome Medication Adherence/Afford/Obtainy es Electronic Signatures: Christine Carpio (RN) (Signed 05-Jul-2021 12:32) Authored: Discharge Planning, Assessment Last Updated: 05-Jul-2021 12:32 by Christine Carpio (RN) References: 1. Data Referenced From Patient Profile - Adult v2 05-Jul-2021 01:53 Normal [facility] Discharge [id number] Discharge Profile2 Discharge Orders: DNAR: DNAR Status: none Provider FINAL REVIEW of Orders: Final Review: Final Review of Medication Reconciliation and Orders Completedby Physician Reviewing ProviderElgin Lambert DO at 05-Jul-2021 11:33:41 Other Clinician Instructions: Other Instructions: Other Clinician InstructionsPlease talk with your shoe polisher to discuss further workup Electronic Signatures: Elgin Lambert () (Signed 05-Jul-2021 11:33) Authored: Discharge Orders, Provider FINAL REVIEW of Orders, Other Clinician Instructions, 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 Summary Last Updated: 05-Jul-2021 11:33 by Elgin Lambert () Normal [facility] Echocardiogramon 07-05-2021 Echocardiography [facility], [address] [place] [address] and TRANSTHORACIC ECHOCARDIOGRAM REPORT Patient Name: HOSEA ALVAREZ Reading Physician: [id number] Josh Ortega MD Study Date: 07/05/2021 Referring Physician: Ana M Calhoun MRN/PID: [id number] PCP: Accession/Order#: [id number] Department Location: [facility] Non Invasive Date of : 1970 Fellow: Gender: M Nurse: Admit Date: 07/05/2021 Nurse Midwife/Clinical Instructor: Barbara Marie CLAY Admission Status: Inpatient - Additional Staff: Routine Height: 165.10 cm CC Report to: 1 [facility] Weight: 86.18 kg Study Type: Echocardiogram BSA: 1.94 m2 Blood Pressure: 137 /86 mmHg Diagnosis/ICD: R07.9-Chest pain, unspecified; R79.89-Elevated Troponin Indication: Chest Pain, Elevated troponin Procedure/CPT: Echo Complete w Full Doppler-[id number] Patient History: Pertinent History: Chest Pain. Elevated [...] LA Area A2C: 16.7 cm2 LA [place] A4C: 5.5 cm LA [place] A2C: 5.7 cm LA Volume Index: 19.6 [...] cm (18-2 (more content not included)... Normal [facility] Laboratory - Chemistry and C hemistry - challengeon 07-05-2021 Anion gap [Moles/Vol] 12 mmol/L 10 - 20 [facility] [address] [facility] Work Phone: Calcium [Mass/Vol] 9.0 mg/dL 8.6 - 10.3 [facility] [address] [facility] Work Phone: Chloride [Moles/Vol] 102 mmol/L 98 - 107 [facility] [address] [facility] Work Phone: CO2 [Moles/Vol] 27 mmol/L 21 - 32 [facility] [address] [facility] Work Phone: Creatinine [Mass/Vol] 0.93 mg/dL See Below [facility] [address] [facility] Work Phone: Comment on above: Reference Range: 0.5 0 - 1.30 Glucose [Mass/Vol] 109 mg/dL above high threshold 74 - 99 [facility] [address] [facility] Work Phone: Potassium [Moles/Vol] 4.1 mmol/L 3.5 - 5.3 [facility] [address] [facility] Work Phone: Sodium [Moles/Vol] 137 mmol/L 136 - 145 [facility] [address] [facility] Work Phone: Urea nitrogen [Mass/Vol] 17 mg/dL 6 - 23 [facility] [address] [facility] Work Phone: Laboratory - Hematology and Cell countson 07-05-2021 Erythrocyte distribution width (RBC) [Ratio] 12.9 % See Below [facility] [address] [facility] Work Phone: Comment on above: Reference Range: 11. 5 - 14.5 Hematocrit (Bld) [Volume fraction] 41.1 % See Below [facility] [address] [facility] Work Phone: Comment on above: Reference Range: 41. 0 - 52.0 Hemoglobin (Bld) [Mass/Vol] 13.3 g/dL below low threshold See Below [facility] [address] [facility] Work Phone: Comment on above: Reference Range: 13. 5 - 17.5 MCHC (RBC) [Mass/Vol] 32.4 g/dL See Below [facility] [address] [facility] Work Phone: Comment on above: Reference Range: 32. 0 - 36.0 MCV (RBC) [Entitic vol] 87 fL 80 - 100 [facility] [address] [facility] Work Phone: Platelets (Bld) [#/Vol] 137 10*3/uL below low threshold 150 - 450 [facility] [address] [facility] Work Phone: RBC (Bld) [#/Vol] 4.74 {x10E12/L} See Below [facility] [address] [facility] Work Phone: Comment on above: Reference Range: 4.5 0 - 5.90 WBC (Bld) [#/Vol] 3.0 10*3/uL below low threshold 4.4 - 11.3 [facility] [address] [facility] Work Phone: No Panel Informationon 07-05 >60 >60 [facility] [address] [facility] Work Phone: Comment on above: CALCULATIONS OF [...] Injectable DOSE = 0.5 mL IntraVenous Push OnceCa.632157 mL/Kg/DOSE x 86.4 Kg = 0.5 mL/Dose [...] be shared with your follow-up providers (doctor, laboratory monitor, physical therapist, etc.). Guidelines for a Healthy [...] be shared with your follow-up providers (doctor, laboratory monitor, physical therapist, etc.). Guidelines for a Healthy Lifestyle losartan 50 mg oral tablet 1 tab(s) orally once a day metoprolol succinate 25 mg oral tablet, extended release 1 tab(s) orally once a day Normal [facility] Order Reconciliation Page 1 Admission Reconciliation Document Reconciliation Type: Admission requested on behalf of Elgin Lambert (Physician) done by Elgin Lambert (DO) Admission - Reconciliation: 05-Jul-2021 10:35 by: Elgin Lambert (DO) Home MedicationsEnteredLast Dose TakenReconciled with current Order Reconciliation Comment/ Additional Information cloNIDine 0.1 mg oral tablet 1 tab(s) orally once a day,05-Jul-2021 AM cloNIDine (CATAPRES) TabletDOSE = 0.1 mg Oral DailycloNIDine 0.1 mg oral tablet continued as the inpatient order cloNIDine (CATAPRES) losartan 50 mg oral tablet 1 tab(s) orally once a [id number] 1 AM Losartan Tablet (COZAAR)DOSE = 50 mg Oral Dailylosartan 50 mg oral tablet continued as the inpatient order Losartan metoprolol succinate 25 mg oral tablet, extended release 1 tab(s) orally once a [id number] 1 AM Metoprolol Succinate Extended Release Tablet, [...] Injectable DOSE = 0.5 mL IntraVenous Push OnceCa.102638 mL/Kg/DOSE x 86.4 Kg = 0.5 mL/Dose [...] with 10 mL of Normal Saline. Normal [facility] Patient Profile - Adult v2on 07-05-2021 Patient Profile - Adult v2 Profile: Initial Info: How to be AddressedRay(1) Spoken Language PreferredEnglish (1) Stated Reason for Admissionchest pressure Wants Family/Rep Notified of Admissionno Notify PCPnotify PCP Informed of Patient Visiting [facility]yes [facility] Employment Statusunemployed(2) Current or Previous Serviceactive duty, past(2) Service Experienceexposed to hazardous materials(3) Patient Belongingsnone Medications Brought to Hospitalno General Health: Blood Avoidance/Restrictionsno ne(1) Previous Transfusion Reactionno(3) Weight in kg86.4 kilogram(s) Weight in ujq923.4 pound(s) Weight Methodstated Scale Typestanding Height in [...] Screen - Adult Emergency 04-Jul-2021 10:11 Normal [facility] TROPONIN Ion 07-05-2021 Troponin I.cardiac [Mass/Vol] 0.02 ng/mL Normal 0.00 - 0.03 [facility] Comment on above: Result Comment: LESS [...] is performed using different testing methodology at [facility] than at other [facility]. Direct result comparisons should only be made within the same method. Performed By: #### T ROP2 #### [facility] [address] [place] [address] TROPONIN I Canceled Normal [facility] Comment on above: Order Comment: TEST [...] is performed using different testing methodology at [facility] than at [facility]. Direct result comparisons should only be made within the same method. Performed By: #### T ROP2 ####[facility] [place], [place] [id number] Troponin I, Serumon 07-05-20 Troponin I.cardiac [Mass/Vol] 0.02 ng/mL See Below [facility] Work Phone: Comment on above: Reference [...] is performed using different testing methodology at [facility] than at other [facility]. Direct result comparisons should only be made within the same method. APTTon 07-04-2021 aPTT Coag (Bld) [Time] 27 s Normal 25 - 35 [facility] Comment on above: Result Comment: THE APTT IS NO LONGER USED FOR MONITORING UNFRACTIONATED HEPARIN THERAPY. FOR MONITORING HEPARIN THERAPY, USE THE HEPARIN ASSAY. Performed By: #### U A #### [facility] [address] [place], [place] [id number] Activated Partial Thrombopla stin Timeon 07-04-2021 aPTT Coag (PPP) [Time] 27 s 25 - 35 [facility] [address] [facility] Work Phone: Comment on above: THE [...] pelvis from September 25, 2018. ACCESSION NUMBER(S): [id number]; [id number] ORDERING CLINICIAN: NUBIA YOUNG PROCEDURE: CT ANGIOGRAM [...] ADRENAL GLAND (more content not included)... Normal [facility] BASIC METABOLIC PANELon 10- Anion gap [Moles/Vol] 10 mmol/L Normal 10 - 20 [facility] [address] [facility] Work Phone: Comment on above: Performed By: #### C BCDF #### [facility] [address] [place], [place] [id number] Calcium [Mass/Vol] 9.4 mg/dL Normal 8.6 - 10.3 [facility] [address] [facility] Work Phone: Comment on above: Performed By: #### C BCDF #### [place] [id number] [facility], [place] [id number] Chloride [Moles/Vol] 103 mmol/L Normal 98 - 107 [facility] [address] [facility] Work Phone: Comment on above: Performed By: #### C BCDF #### [address], [place] [id number] Creatinine [Mass/Vol] 1.00 mg/dL Normal 0.50 - 1.30 [facility] [address] [facility] Work Phone: Comment on above: Reference Range: 0.5 0 - 1.30 Performed By: #### C BCDF #### [address], [place] [id number] GFR- AM. >60 Normal >60 [facility] Comment on above: Result Comment: CALC ULATIONS OF ESTIMATED GFR ARE PERFORMED USING THE MDRD STUDY EQUATION FOR THE IDMS-TRACEABLE CREATININE METHODS. CLIN CHEM 2007;53:766-72 Performed By: #### C BCDF #### [address], [place] [id number] GFR-NON AM. >60 Normal >60 [facility] Comment on above: Performed By: #### C BCDF #### [place] [id number] [facility], [place] [id number] Glucose [Mass/Vol] 106 mg/dL High 74 - 99 [facility] [address] [facility] Work Phone: Comment on above: Performed By: #### C BCDF #### [address], [place] [id number] HCO3 (Bld) [Moles/Vol] 31 mmol/L Normal 21 - 32 [facility] Comment on above: Performed By: #### C BCDF #### [facility] [address] [facility], [place] [id number] Potassium [Moles/Vol] 4.5 mmol/L Normal 3.5 - 5.3 [facility] [address] [facility] Work Phone: Comment on above: Performed By: #### C BCDF #### [place] [id number] [facility], [place] [id number] Sodium [Moles/Vol] 139 mmol/L Normal 136 - 145 [facility] [address] [facility] Work Phone: Comment on above: Performed By: #### C BCDF #### [address], [place] [id number] Urea nitrogen [Mass/Vol] 17 mg/dL Normal 6 - 23 [facility] [address] [facility] Work Phone: Comment on above: Performed By: #### C BCDF #### [address], [place] [id number] BNPon 07-04-2021 Natriuretic peptide B (Bld) [Mass/Vol] 49 pg/mL Normal 0 - 99 [facility] Comment on above: Result Comment: . <1 00 pg/mL - Heart failure unlikely 100-299 pg/mL - Intermediate probability of acute heart . failure exacerbation. Correlate with clinical . context and patient history. >=300 pg/mL - Heart Failure likely. Correlate with clinical . context and patient history. BNP testing is performed using different testing methodology at [facility] than at other [facility]. Direct result comparisons should only be made within the same method. Performed By: #### C BCDF #### [address], [place] [id number] CBC AND DIFFERENTIALon 07-04 % AUTOMATED IMMATURE GRAN 0.6 % Normal 0.0 - 0.9 [facility] Comment on above: Result Comment: Kath ture Granulocyte Count (IG) includes promyelocytes, myelocytes and metamyelocytes but does not include bands. Percent differential counts (%) should be interpreted in the context of the absolute cell counts (cells/L). Performed By: #### C BCDF ####[address], [place] [id number] Basophils (Bld) [#/Vol] 0.02 10*3/uL Normal 0.00 - 0.10 [facility] Comment on above: Performed By: #### C BCDF ####[address], [place] [id number] Basophils/100 WBC (Bld) 0.6 % Normal 0.0 - 2.0 [facility] Comment on above: Performed By: #### C BCDF ####[address], [place] [id number] Eosinophils (Bld) [#/Vol] 0.09 10*3/uL Normal 0.00 - 0.70 [facility] Comment on above: Performed By: #### C BCDF ####[address], [place] [id number] Eosinophils/100 WBC (Bld) 2.8 % Normal 0.0 - 6.0 [facility] Comment on above: Performed By: #### C BCDF ####[address], [place] [id number] Erythrocyte distribution width (RBC) [Ratio] 12.8 % Normal 11.5 - 14.5 [facility] Comment on above: Performed By: #### C BCDF ####[address], [place] [id number] Hematocrit (Bld) [Volume fraction] 39.4 % Low 41.0 - 52.0 [facility] Comment on above: Performed By: #### C BCDF ####[address], [place] [id number] Hemoglobin (Bld) [Mass/Vol] 13.3 g/dL Low 13.5 - 17.5 [facility] Comment on above: Performed By: #### C BCDF ####[address], [place] [id number] Lymphocytes (Bld) [#/Vol] 0.85 10*3/uL Low 1.20 - 4.80 [facility] Comment on above: Performed By: #### C BCDF ####[id number] [facility], [place] [id number] Lymphocytes/100 WBC (Bld) 26.0 % Normal 13.0 - 44.0 [facility] Comment on above: Performed By: #### C BCDF ####[id number] [facility], [place] [id number] MCHC (RBC) [Mass/Vol] 33.8 g/dL Normal 32.0 - 36.0 [facility] Comment on above: Performed By: #### C BCDF ####[id number] [facility] [id number] MCV (RBC) [Entitic vol] 83 fL Normal 80 - 100 [facility] Comment on above: Performed By: #### C BCDF ####[id number] [facility], [place] [id number] Monocytes (Bld) [#/Vol] 0.35 10*3/uL Normal 0.10 - 1.00 [facility] Comment on above: Performed By: #### C BCDF ####[id number] [facility] [id number] Monocytes/100 WBC (Bld) 10.7 % Normal 2.0 - 10.0 [facility] Comment on above: Performed By: #### C BCDF ####[id number] [facility] [phone] Neutrophils (Bld) [#/Vol] 1.94 10*3/uL Normal 1.20 - 7.70 [facility] Comment on above: Performed By: #### C BCDF ####[id number] [facility] [phone] Neutrophils/100 WBC (Bld) 59.3 % Normal 40.0 - 80.0 [facility] Comment on above: Performed By: #### C BCDF ####[id number] [facility] [id number] Platelets (Bld) [#/Vol] 140 10*3/uL Low 150 - 450 [facility] Comment on above: Performed By: #### C BCDF ####[id number] [facility] [phone] RBC 4.73 x10E12/L Normal 4.50 - 5.90 [facility] Comment on above: Performed By: #### C BCDF ####[id number] [facility] [phone] WBC (Bld) [#/Vol] 3.3 10*3/uL Low 4.4 - 11.3 [facility] Comment on above: Performed By: #### C BCDF ####[id number] [facility] [phone] CHEST 1 VIEWon 07-04-2021 CHEST 1 VIEW STUDY: Chest Radiograph; 07/04/2021 9:31 AM. INDICATION: Chest pain and pressure. COMPARISON: CXR 06/07/2021. ACCESSION NUMBER(S): [id number] ORDERING CLINICIAN: NUBIA YOUNG DO TECHNIQUE: Frontal chest was obtained at 09:50 hours. FINDINGS: CARDIOMEDIASTINAL SILHOUETTE: Cardiomediastinal silhouette is normal in size and configuration. LUNGS: Lungs are clear. ABDOMEN: No remarkable upper abdominal findings. BONES: No acute osseous changes. IMPRESSION: 1. No acute pulmonary infiltrate. Signed by Candice Crandall Electronically signed by: CANDICE CRANDALL MD Normal [facility] CORONAVIRUS 2019 BY PCRon SARS-CoV-2 (COVID-19) RNA TATI+probe Ql (Unsp spec) Not detected Normal Not Detected [facility] Comment on above: Result Comment: . This test has received FDA Emergency Use Authorization (EUA) and has been verified by [facility]. This test is only authorized for the duration of time that circumstances exist to justify the authorization of the emergency use of in vitro diagnostic tests for the detection of SARS-CoV-2 virus and/or diagnosis of COVID-19 infection under section 564(b)(1) of the Act, 21 U.S.C. 360bbb-3(b)(1), unless the authorization is terminated or revoked sooner. [facility] is certified under CLIA-88 as qualified to perform high complexity testing. Testing is performed in the [facility] laboratory located at [address] [place] [address], [place] [address]. SARS-CoV-2/Flu/RSV Multiplex Test: Fact sheet for providers: https://www.fda.gov/media/125295/download Fact sheet for patients: https://www.fda.gov/media/025069/download Performed By: #### C OV19 ####[id number] [place], [place] [id number] DATE OF SYMPTOM ONSET [YYYYMMDD]? [id number] Normal [facility] Comment on above: Performed By: #### C OV19 ####[id number] [place], [place] [id number] Lab Specimen Source Nasal, Nasopharyngeal Normal [facility] Comment on above: Performed By: #### C OV19 ####[facility] [place], [place] [id number] CT Angio Cheston 07-04-2021 CTA Chest vessels Normal [facility] [address] Work Phone: CTA ABD Aorta With Bilat Елена ofem Extr Runoff w/wo Cont Post Procon 07-04-2021 CTA ABD Aorta With Bilat Iliofem Extr Runoff w/wo Cont Post Proc Normal [facility] [address] Work Phone: Complete Blood Count + Diffe rentialon 07-04-2021 Basophils/100 WBC (Bld) 0.6 % 0.0 - 2.0 [facility] [address] Work Phone: Erythrocyte distribution width (RBC) [Ratio] 12.8 % See Below -[facility] [address] Work Phone: Comment on above: Reference Range: 11. 5 - 14.5 Hematocrit (Bld) [Volume fraction] 39.4 % below low threshold See Below [facility] [address] Work Phone: Comment on above: Reference Range: 41. 0 - 52.0 Hemoglobin (Bld) [Mass/Vol] 13.3 g/dL below low threshold See Below [facility] [address] Work Phone: Comment on above: Reference Range: 13. 5 - 17.5 Lymphocytes/100 WBC (Bld) 26.0 % See Below [facility] [address] Work Phone: Comment on above: Reference Range: 13. 0 - 44.0 MCHC (RBC) [Mass/Vol] 33.8 g/dL See Below [facility] [address] Work Phone: Comment on above: Reference Range: 32. 0 - 36.0 MCV (RBC) [Entitic vol] 83 fL 80 - 100 [facility] [address] Work Phone: Monocytes/100 WBC (Bld) 10.7 % 2.0 - 10.0 [facility] [address] Work Phone: Neutrophils/100 WBC (Bld) 59.3 % See Below [facility] [address] Work Phone: Comment on above: Reference Range: 40. 0 - 80.0 Platelets (Bld) [#/Vol] 140 10*3/uL below low threshold 150 - 450 [facility] [address] Work Phone: RBC (Bld) [#/Vol] 4.73 {x10E12/L} See Below [facility] [address] Work Phone: Comment on above: Reference Range: 4.5 0 - 5.90 WBC (Bld) [#/Vol] 3.3 10*3/uL below low threshold 4.4 - 11.3 [facility] [address] Work Phone: Complete Blood Count + Differential 0.02 {x10E9/L} See Below [facility] [address] Work Phone: Comment on above: Reference Range: 0.0 0 - 0.10 Complete Blood Count + Differential 0.09 {x10E9/L} See Below [facility] [address] Work Phone: Comment on above: Reference Range: 0.0 0 - 0.70 Complete Blood Count + Differential 0.35 {x10E9/L} See Below [facility] [address] Work Phone: Comment on above: Reference Range: 0.1 0 - 1.00 Complete Blood Count + Differential 0.85 {x10E9/L} below low threshold See Below [facility] [address] Work Phone: Comment on above: Reference Range: 1.2 0 - 4.80 Complete Blood Count + Differential 1.94 {x10E9/L} See Below [facility] [address] Work Phone: Comment on above: Reference Range: 1.2 0 - 7.70 Complete Blood Count + Differential 2.8 % 0.0 - 6.0 [facility] [address] Work Phone: Complete Blood Count + Differential 0.6 % 0.0 - 0.9 [facility] [address] Work Phone: Comment on above: Immature Granulocyte Count (IG) includes promyelocytes, myelocytes and metamyelocytes but does not include bands. Percent differential counts (%) should be interpreted in the context of the absolute cell counts (cells/L). Coronavirus 2019 RNA by PCR, Symptomaticon 07-04-2021 Date and time of symptom onset [id number] 1 [facility] [address] Work Phone: Coronavirus 2019 RNA by PCR, Symptomatic Not detected Normal See Below [facility] -[facility] [address] Work Phone: Comment on above: SOURCE: Nasal, Nasop haryngealReference Range: Not Detected.This test has received FDA Emergency Use Authorization (EUA) and has been verified by [facility]. This test is only authorized for the duration of time that circumstances exist to justify the authorization of the emergency use of in vitro diagnostic tests for the detection of SARS-CoV-2 virus and/or diagnosis of COVID-19 infection under section 564(b)(1) of the Act, 21 U.S.C. 360bbb-3(b)(1), unless the authorization is terminated or revoked sooner. [facility] is certified under CLIA-88 as qualified to perform high complexity testing. Testing is performed in the [facility] laboratory located at [address] [place] [address]. SARS-CoV-2/Flu/RSV Multiplex Test: Fact sheet for providers: https://www.fda.gov/media/359512/downloadFact sheet for patients: https://www.fda.gov/media/820703/download Covid 19 Resultson 1 SARS-CoV-2 (COVID-19) RNA [...] You may also be contacted by the [facility] to see if any of your close [...] or Naproxen (Aleve) can also be used. Qolc-yrc-mxkizch cough and cold medicines can be used according to the instructions on the package. Some jams-xib-fdaiaym medicines also contain acetaminophen. 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 Avoid touching your eyes, nose, and mouth [...] 24 guerline (more content not included)... Normal [facility] Discharge Planning Axnf6mi 1 Discharge Planning Note2 Discharge Planning: Anticipated Discharge [id number] Discharge Planning 07-04-21 [id number] Pt asked attending to speak to DAVID. DAVID is familiar with pt from multiple ED visits, multiple requests to speak with DAVID. Pt told this insurance underwriter sales last ED visit that he has a spring encaser. DAVID asked administrative secretary to ask pt what his needs were -pt said he wanted referrals for cardiology and urology. Tile Mechanic said she could get these for the pt. Pt also asked for a schedule of his upcoming appts. These were emailed to administrative secretary to give to pt. Patient will be admitted. Merissa RITTER Assessment: Discharge Planning Assessment [id number] Electronic Signatures: Merissa Acevedo (DAVID) (Signed 04-Jul-2021 14:43) Authored: Discharge Planning, Assessment Last Updated: 04-Jul-2021 14:43 by Merissa Acevedo () Normal [facility] EMR ADDONon 07-04-2021 ADDON CONFIRMATION REQUEST REC'D Normal [facility] Comment on above: Performed By: #### E MRAD ####[facility] [place], [place] [id number] LIPASEon 07-04-2021 Lipase [Catalytic activity/Vol] 10 U/L Normal 9 - 82 [facility] Comment on above: Result Comment: Jocelyn puncture immediately after or during the administration of Metamizole may lead to falsely low results. Testing should be performed immediately prior to Metamizole dosing. O-hqyppf-p-benzoquinone imine (metabolite of Acetaminophen) will generate erroneously low results in samples for patients that have taken toxic doses of acetaminophen. Performed By: #### U A #### [facility] [address] [place], [place] [id number] Laboratory - Chemistry and C hemistry - challengeon 07-04-2021 CO2 [Moles/Vol] 31 mmol/L 21 - 32 [facility] [address] Work Phone: Lipase, Serumon 07-04-2021 Lipase [Catalytic activity/Vol] 10 U/L 9 - 82 [facility] [address] Work Phone: Comment on above: Venipuncture immedia tely after or during the administration of Metamizole may lead to falsely low results. Testing should be performed immediately prior to Metamizole dosing. F-bcxzzs-b-benzoquinone imine (metabolite of Acetaminophen) will generate erroneously low results in samples for patients that have taken toxic doses of acetaminophen. Magnesium, Serumon Magnesium [Mass/Vol] 2.07 mg/dL Normal 1.60 - 2.40 [facility] [address] Work Phone: Comment on above: Reference Range: 1.6 0 - 2.40 Performed By: #### C BCDF #### [facility] [address] [place], [place] [id number] No Panel Informationon 07-04 [email or web address]?RetrieveTestByDateTim e?IwmugxeOB=[id number]&Da te=09-01-2021&Time=13%3a 01%3a26%3a00&TestType=EC G&Site=6&OutputType=PDF& Ext=PDF [facility] [address] Work Phone: Normal sinus rhythm [facility] [address] Work Phone: Abnormal [facility] [address] Work Phone: 386 1 [facility] [address] Work Phone: 406 1 [facility] [address] Work Phone: 161 1 [facility] [address] Work Phone: [phone] 1 [facility] [address] Work Phone: 219 1 [facility] [address] Work Phone: 11 1 [facility] [address] Work Phone: 1 1 [facility] [address] Work Phone: -28 1 [facility] [address] Work Phone: 74 1 [facility] [address] Work Phone: 392 1 [facility] [address] Work Phone: 374 1 [facility] [address] Work Phone: 86 1 [facility] [address] Work Phone: 200 1 [facility] [address] Work Phone: 66 1 [facility] [address] Work Phone: >60 >60 [facility] [address] Work Phone: [phone] Comment on above: CALCULATIONS OF NIKOLE MATED GFR ARE PERFORMED USING THE MDRD STUDY EQUATION FOR THE IDMS-TRACEABLE CREATININE METHODS. CLIN CHEM 2007;53:766-72 49 pg/mL 0 - 99 [facility] [address] Work Phone: Comment on above: . <100 pg/mL - Heart failure hbsxryie285-344 pg/mL - Intermediate probability of acute heart. failure exacerbation. Correlate with clinical. context and patient history. >=300 pg/mL - Heart Failure likely. Correlate with clinical. context and patient history.BNP testing is performed using different testing methodology at [facility] than at other [facility]. Direct result comparisons should only be made within the same method. [email or web address] 1:[email or web address]?RetrieveTestByDateTim e?DzyglmfJM=[id number]&Da te=09-01-2021&Time=09%3a 35%3a48%3a00&TestType=EC G&Site=6&OutputType=PDF& Ext=PDF [facility] [address] Work Phone: Normal sinus rhythm [facility] -[place] [address] Work Phone: Abnormal [facility] [address] Work Phone: [phone] 1 [facility] [address] Work Phone: [phone] 1 [facility] [address] Work Phone: [phone] 1 [facility] [address] Work Phone: [phone] 1 [facility] [address] Work Phone: [phone] 1 [facility] [address] Work Phone: 11 1 [facility] [address] Work Phone: 1 1 [facility] [address] Work Phone: -24 1 [facility] [address] Work Phone: 30 1 [facility] [address] Work Phone: 375 1 [facility] [address] Work Phone: 370 1 [facility] [address] Work Phone: 100 1 [facility] [address] Work Phone: 196 1 [facility] [address] Work Phone: 62 1 [facility] [address] Work Phone: Provider Note [...] and heparinized. He requested to go to [facility] for transfer. At this time patient is chest pain-free here in the ED and we are awaiting a callback from the transfer center for a bed availability at [facility] as we do not have any available at our hospital. Patient was signed out in stable condition to oncoming physician at shift change. Patient was told of all the findings on the CT and results of today's labs and imaging. Note: This note was dictated by speech recognition. 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 HISTORY OF PRESENTING ILLNESS [...] Code:Z78.9 Medic (more content not included)... Normal [facility] Radiologyon 07-04-2021 XR Chest Single view Normal [facility] [address] Work Phone: Risk Screen - Adult Emergenc yon 07-04-2021 Risk Screen - Adult Emergency Preferred Language: Preferred Language: Preferred Language for Discussing Health Care (patient/designee)Fran carver Advanced Directives: Advance Directive/DNRno Family Violence Adult: [...] instruction; written material Cultural Considerationsnone Developmental Considerationsnone Mandaeism Considerationsnone Learning Assessment (Other Learner): Learning Assessment [...] an injured patient at a Trauma Center ([facility]/[place] /[place]): no Electronic Signatures: Irving Guerrero (RN) (Signed 04-Jul-2021 10:12) Authored: Preferred Language, Advanced Directives, Family Violence Adult, Learning Assessment (Patient), Learning Assessment (Other Learner), Pressure Injury/TB/Substance, Pressure Injury, CAGE Last Updated: 04-Jul-2021 10:12 by Irving Guerrero (RN) [facility] CT ANGIO CHESTon 07-04-20 CT ANGIO CHEST Patient Name: HOSEA ALVAREZ STUDY: CTA ABD AORTA WITH BILAT ILIOFEM EXTR RUNOFF W/WO CONT POST PROC; CT ANGIO CHEST; 07/04/2021 11:32 am INDICATION: History of AAA, worsening chest pain radiating into the back. COMPARISON: CT of the abdomen and pelvis from September 25, 2018. ACCESSION NUMBER(S): [id number]; [id number] ORDERING CLINICIAN: NUBIA YOUNG PROCEDURE: CT ANGIOGRAM [...] ADRENAL GLAND (more content not included)... Normal [facility] TROPONIN Ion 07-04-2021 Troponin I.cardiac [Mass/Vol] 0.10 ng/mL Critically high 0.00 - 0.03 [facility] Comment on above: Order Comment: Josseline kline troponin- RB to Liz Arechiga , 07/04/2021 16:54 Result Comment: LESS [...] is performed using different testing methodology at [facility] than at other [facility]. Direct result comparisons should only be made within the same method. Called troponin- RB to Liz Arechiga , 07/04/2021 16:54 Performed By: #### C BC #### [facility] [id number] [place] [id number] Troponin I.cardiac [Mass/Vol] 0.71 ng/mL Critically high 0.00 - 0.03 [facility] Comment on above: Order Comment: Josseline kline- RB to Sinan, 07/04/2021 14:32 Result Comment: LESS THAN 0.04 [...] is performed using different testing methodology at [facility] than at other [facility] hospitals. Direct result comparisons should only be made within the same method. Called- RB to Sinan, 07/04/2021 14:32 Performed By: #### C BCDF #### [facility] [address] [place], [place] [phone] Triage - EDon 07-04-2021 Triage - ED Chart Review: ARRIVAL INFORMATION Mode of Arrival: ambulance Agency Name: [facility] CHIEF COMPLAINT HOSEA ALVAREZ is a Male [...] obeys commands Best Verbal Response: (V5) oriented Trona Score: 15 Cough lasting greater than 3 [...] Updated: 04-Jul-2021 09:50 by Irving Guerrero (BROOK[place]NN) [facility] Troponin I, Serumon 07-04-20 21 Troponin I.cardiac [Mass/Vol] Canceled [facility] Work Phone: Comment on above: LESS THAN [...] is performed using different testing methodology at [facility] than at other [facility]. Direct result comparisons should only be made within the same method. Troponin I.cardiac [Mass/Vol] 0.10 ng/mL Critically high See Below [facility] Work Phone: Comment on above: Reference Range: [...] is performed using different testing methodology at [facility] than at other system hospitals. Direct result comparisons should only be made within the same method. Called troponin- RB to Liz Arechiga , 07/04/2021 16:54 Troponin I.cardiac [Mass/Vol] 0.71 ng/mL Critically high See Below [employer] [facility] [address] Work Phone: Comment on above: Reference Range: [...] is performed using different testing methodology at [facility] than at other system hospitals. Direct result comparisons should only be made within the same method. Called- RB to Sinan, 07/04/2021 14:32 Troponin I.cardiac [Mass/Vol] ng/mL Normal 0.00 - 0.03 [facility] Work Phone: Comment on above: Reference Range: [...] is performed using different testing methodology at [facility] than at other system hospitals. Direct result [...] is performed using different testing methodology at [facility] than at other [facility]. Direct result comparisons should only be made within the same method. Performed By: #### T ROP2 ####[facility] [place], [place] [id number] Office Visit (Vascular Surge ry)on 06-28-2021 Follow-up [...] Vital Signs Recorded: 28Jun2021 09:34AMRecorded: 28Jun2021 09:32AM Ngyrszns344, LUE, Qwsrbjv597, LUE, Sitting Pfhhzkcqu94, LUE, Ceemqhj75, LUE, Sitting Heart Rate91 Mbrzkfalpvr07 Height5 ft 6 in Bvnzdh287 lb BMI Qilwirpvqi15.47 kg/m2 BSA Calculated1.98 Tobacco Usea) Yes Fall Screeninga) No falls within the last year O2 Ybtmnzhdwz64 Pain Scale0 Physical Exam Constitutional: Well developed and well nourished. In no acute distress Neuro: Grossly normal without focal deficits Eyes: PERRL, EOMI Neck: Supple. No carotid bruits noted Cardiac: RRR, no murmur Resp: Clear to ausc (more content not included)... Normal [facility] Tobacco Screening.on 021 Fall risk assessment a) No falls within the last year [facility] Work Phone: Tobacco use status [facility] a) Yes [facility] Work Phone: BA CTA ABDOMEN PELVIS WITH [...] Lie Flat: Yes. COMPARISON: None. ACCESSION NUMBER(S): [id number] ORDERING CLINICIAN: BALTA MELO TECHNIQUE: Thin-section axial [...] Electronically signed by: YUMI WATERS MD Normal [facility] [facility] CBC AND DIFFERENTIALon 06-26 % AUTOMATED IMMATURE GRAN 0.5 % Normal 0.0 - 0.9 [facility] Comment on above: Result Comment: Kath ture Granulocyte Count (IG) includes promyelocytes, myelocytes and metamyelocytes but does not include bands. Percent differential counts (%) should be interpreted in the context of the absolute cell counts (cells/L). Performed By: #### C BCDF #### [facility] [address] [place] [address] Basophils (Bld) [#/Vol] 0.01 10*3/uL Normal 0.00 - 0.10 [facility] Comment on above: Performed By: #### C BCDF #### [facility] [address] [place] [address] Basophils/100 WBC (Bld) 0.2 % Normal 0.0 - 2.0 [facility] Comment on above: Performed By: #### C BCDF #### [facility] [address] [place] [address] Eosinophils (Bld) [#/Vol] 0.09 10*3/uL Normal 0.00 - 0.70 [facility] Comment on above: Performed By: #### C BCDF #### [facility] [address] [place] [address] Eosinophils/100 WBC (Bld) 2.1 % Normal 0.0 - 6.0 [facility] Comment on above: Performed By: #### C BCDF #### [facility] [address] [place] [address] Erythrocyte distribution width (RBC) [Ratio] 12.9 % Normal 11.5 - 14.5 [facility] Comment on above: Performed By: #### C BCDF #### [facility] [address] [place] [address] Hematocrit (Bld) [Volume fraction] 38.4 % Low 41.0 - 52.0 [facility] Comment on above: Performed By: #### C BCDF #### [facility] [address] [place] [address] Hemoglobin (Bld) [Mass/Vol] 12.2 g/dL Low 13.5 - 17.5 [facility] Comment on above: Performed By: #### C BCDF #### [facility] [address] [place] [address] Lymphocytes (Bld) [#/Vol] 0.86 10*3/uL Low 1.20 - 4.80 [facility] Comment on above: Performed By: #### C BCDF #### [facility] [address] [place] [address] Lymphocytes/100 WBC (Bld) 20.0 % Normal 13.0 - 44.0 [facility] Comment on above: Performed By: #### C BCDF #### [facility] [address] [place] [address] MCHC (RBC) [Mass/Vol] 31.8 g/dL Low 32.0 - 36.0 [facility] Comment on above: Performed By: #### C BCDF #### [facility] [address] [place] [address] MCV (RBC) [Entitic vol] 86 fL Normal 80 - 100 [facility] Comment on above: Performed By: #### C BCDF #### [facility] [address] [place] [address] Monocytes (Bld) [#/Vol] 0.40 10*3/uL Normal 0.10 - 1.00 [facility] Comment on above: Performed By: #### C BCDF #### [facility] [address] [place] [address] Monocytes/100 WBC (Bld) 9.3 % Normal 2.0 - 10.0 [facility] Comment on above: Performed By: #### C BCDF #### [facility] [address] [place] [address] Neutrophils (Bld) [#/Vol] 2.91 10*3/uL Normal 1.20 - 7.70 [facility] Comment on above: Performed By: #### C BCDF #### [facility] [address] [place] [address] Neutrophils/100 WBC (Bld) 67.9 % Normal 40.0 - 80.0 [facility] Comment on above: Performed By: #### C BCDF #### [facility] [address] [place] [address] NUCLEATED RBC 0.0 /100 WBC Normal 0.0-0.0 [facility] Comment on above: Performed By: #### C BCDF #### [facility] [address] [place] [address] Platelets (Bld) [#/Vol] 149 10*3/uL Low 150 - 450 [facility] Comment on above: Performed By: #### C BCDF #### [facility] [address] [place] [address] RBC 4.44 x10E12/L Low 4.50 - 5.90 [facility] Comment on above: Performed By: #### C BCDF #### [facility] [address] [place] [address] WBC (Bld) [#/Vol] 4.3 10*3/uL Low 4.4 - 11.3 [facility] [place] Comment on above: Performed By: #### C BCDF #### [facility] [address] [place] [address] COMPREHENSIVE PANELon 2020 Albumin [Mass/Vol] 4.0 g/dL Normal 3.4 - 5.0 [facility] [place] Comment on above: Performed By: #### C MP #### [facility] [address] [place] [address] ALP [Catalytic activity/Vol] 53 U/L Normal 33 - 120 [facility] Comment on above: Performed By: #### C MP #### [facility] [address] [place] [address] ALT [Catalytic activity/Vol] 25 U/L Normal 10 - 52 [facility] Comment on above: Result Comment: Yanni ents treated with Sulfasalazine may generate falsely decreased results for ALT. Performed By: #### C MP #### [facility] [address] [place] [address] Anion gap [Moles/Vol] 12 mmol/L Normal 10 - 20 [facility] Comment on above: Performed By: #### C MP #### [facility] [address] [place] [address] AST [Catalytic activity/Vol] 22 U/L Normal 9 - 39 [facility] Comment on above: Performed By: #### C MP #### [facility] [address] [place] [address] Bilirubin [Mass/Vol] 0.3 mg/dL Normal 0.0 - 1.2 [facility] Comment on above: Performed By: #### C MP #### [facility] [address] [place] [address] Calcium [Mass/Vol] 9.3 mg/dL Normal 8.6 - 10.6 [facility] [place] Comment on above: Performed By: #### C MP #### [facility] [address] [place] [address] Chloride [Moles/Vol] 103 mmol/L Normal 98 - 107 [facility] Comment on above: Performed By: #### C MP #### [facility] [address] [place] [address] Creatinine [Mass/Vol] 1.03 mg/dL Normal 0.50 - 1.30 [facility] Comment on above: Performed By: #### C MP #### [facility] [address] [place] [address] GFR- AM. >60 Normal >60 [facility] Comment on above: Result Comment: CALC ULATIONS OF ESTIMATED GFR ARE PERFORMED USING THE MDRD STUDY EQUATION FOR THE IDMS-TRACEABLE CREATININE METHODS. CLIN CHEM 2007;53:766-72 Performed By: #### C MP #### [facility] [address] [place] [address] GFR-NON AM. >60 Normal >60 [facility] Comment on above: Performed By: #### C MP #### [facility] [address] [place] [address] Glucose [Mass/Vol] 86 mg/dL Normal 74 - 99 [facility] [place] Comment on above: Performed By: #### C MP #### [facility] [address] [place] [address] HCO3 (Bld) [Moles/Vol] 26 mmol/L Normal 21 - 32 [facility] Comment on above: Performed By: #### C MP #### [facility] [address] [place] [address] Potassium [Moles/Vol] 4.1 mmol/L Normal 3.5 - 5.3 [facility] Comment on above: Performed By: #### C MP #### [facility] [address] [place] [address] Protein [Mass/Vol] 6.8 g/dL Normal 6.4 - 8.2 [facility] [place] Comment on above: Performed By: #### C MP #### [facility] [address] [place] [address] Sodium [Moles/Vol] 137 mmol/L Normal 136 - 145 [facility] [place] Comment on above: Performed By: #### C MP #### [facility] [address] [place] [address] Urea nitrogen [Mass/Vol] 21 mg/dL Normal 6 - 23 [facility] Comment on above: Performed By: #### C MP #### [facility] [address] [place] [address] CT Angio Abdomen Pelvis with Contrast including non cont Image with Post Procedureon 06-26-2021 CT Abdomen and Pelvis and CT angiogram Abdominal aorta W contrast IV Normal [facility]José Miguel mathews [employer] Work Phone: Complete Blood Count + Diffe rentialon 06-26-2021 Basophils/100 WBC (Bld) 0.2 % 0.0 - 2.0 [facility]nn mathews [employer] Work Phone: Erythrocyte distribution width (RBC) [Ratio] [...] Differential 0.0 {/100_WBC} 0.0-0.0 [facility] Work Phone: Laboratory - Chemistry and C hemistry - [facility] 06-26-2021 Albumin BCP dye [Mass/Vol] 4.0 g/dL 3.4 - 5.0 [facility] Work Phone: ALP [Catalytic activity/Vol] 53 U/L 33 - 120 [facility] Work Phone: ALT With P-5'-P [Catalytic activity/Vol] 25 U/L 10 - 52 [facility] Work Phone: Comment on above: Patients treated wit h Sulfasalazine may generate falsely decreased results for ALT. Anion gap [Moles/Vol] 12 mmol/L 10 - 20 [facility] Work Phone: AST With P-5'-P [Catalytic activity/Vol] 22 U/L 9 - 39 [facility] [employer] Work Phone: Bilirubin [Mass/Vol] 0.3 mg/dL 0.0 - 1.2 [facility] Work Phone: Calcium [Mass/Vol] 9.3 mg/dL 8.6 - 10.6 [facility] Work Phone: Chloride [Moles/Vol] 103 mmol/L 98 - 107 [facility] [employer] Work Phone: CO2 [Moles/Vol] 26 mmol/L 21 - 32 [facility] Work Phone: Creatinine [Mass/Vol] 1.03 mg/dL See Below [facility] Work Phone: Comment on above: Reference Range: 0.5 0 - 1.30 Glucose [Mass/Vol] 86 mg/dL 74 - 99 [facility] Work Phone: Potassium [Moles/Vol] 4.1 mmol/L 3.5 - 5.3 [facility] Work Phone: [phone] Protein [Mass/Vol] 6.8 g/dL 6.4 - 8.2 [facility] Work Phone: [phone] Sodium [Moles/Vol] 137 mmol/L 136 - 145 [facility] Work Phone: [phone] Urea nitrogen [Mass/Vol] 21 mg/dL 6 - 23 [facility] Work Phone: [phone] No Panel Informationon 06-26 [email or web address]?RetrieveTestByDateTim e?AdqrpbhVY=[id number]&Da te=12-31-2020&Time=21%3a 34%3a04%3a00&TestType=EC G&Site=1&OutputType=PDF& Ext=PDF [facility] Work Phone: [phone] Please see ED Provid er Note for formal interpretation [facility] Work Phone: [phone] Normal [facility] Work Phone: [phone] 1 [facility] Work Phone: [phone] 1 [facility] Work Phone: [phone] 1 [facility] Work Phone: [phone] 1 [facility] Work Phone: [phone] 1 [facility] Work Phone: [phone] 11 1 [facility] Work Phone: [phone] 2 1 [facility] Work Phone: [phone] -5 1 [facility] Work Phone: [phone] 37 1 [facility] Work Phone: [phone] [facility] Work Phone: [phone] [facility] Work [...] focal deficits. PSYCH: Appropriate mood and affect. Knot Tier: BROOKLYNN Wilson ED Course/MDM Results: Labs and [...] normal. Yanni (more content not included)... Normal [facility] Risk Screen - Adult Emergenc yon 06-26-2021 Risk Screen - Adult Emergency Preferred Language: Preferred Language: Preferred Language for Discussing Health Care (patient/designee)Fran carver Advanced Directives: Advance Directive/DNRno Family Violence Adult: [...] material; verbal instruction Cultural Considerationsnone Developmental Considerationsnone Mandaeism Considerationsnone Learning Assessment (Other Learner): Learning Assessment (Other Learner): Other learner availableno Pressure Injury/TB/Substance: Pressure Injury: Pressure Injury Present on Admissionno Do you have a coughno Smoking Statusnever smoker Alcohol Usedenies Drug Usedenies Drug 2 Usedenies Admission Risk Screen: Significant IndicatorsComplete CAGE: CAGE: Is this an injured patient at a Trauma Center ([facility] [place]/[place]): no Electronic Signatures: Tamika Mckinley (RN) (Signed 26-Jun-2021 20:52) Authored: Preferred Language, Advanced Directives, Family Violence Adult, Learning Assessment (Patient), Learning Assessment (Other Learner), Pressure Injury/TB/Substance, Pressure Injury, CAGE Last Updated: 26-Jun-2021 20:52 by Tamika Mckinley (RN) Normal [facility] Triage - EDon 06-26-2021 Triage - ED [...] Verbal Response: (V5) oriented Lynda Score: 15 Trona Assessment Qualifiers: patient not sedated/intubated Allergies: no [...] 26-Jun-2021 14:51 by Melania Morataya (BROOKLYNN) Normal [facility] URINALYSISon 06-26-2021 Appearance (U) CLEAR Normal CLEAR [facility] Comment on above: Performed By: #### U A #### [facility] [address] [place] [address] Bilirubin Ql (U) Negative Normal NEGATIVE [facility] Comment on above: Performed By: #### U A #### [facility] [address] [place] [address] Color (U) STRAW Normal STRAW,YELLOW [facility] Comment on above: Performed By: #### U A #### [facility] [address] [place] [address] Glucose Ql (U) Negative Normal NEGATIVE [facility] Comment on above: Performed By: #### U A #### [facility] [address] [place] [address] Hemoglobin Ql (U) Negative Normal NEGATIVE [facility] Comment on above: Performed By: #### U A #### [facility] [address] [place] [address] Ketones Ql (U) Negative Normal NEGATIVE [facility] Comment on above: Performed By: #### U A #### [facility] [address] [place] [address] Leukocyte esterase Test strip Ql (U) Negative Normal NEGATIVE [facility] Comment on above: Performed By: #### U A #### [facility] [address] [place] [address] Nitrite Ql (U) Negative Normal NEGATIVE [facility] Comment on above: Performed By: #### U A #### [facility] [address] [place] [address] pH (U) 6.0 [pH] Normal 5.0 - 8.0 [facility] Comment on above: Performed By: #### U A #### [facility] [address] [place] [address] Protein Ql (U) Negative Normal NEGATIVE [facility] Comment on above: Performed By: #### U A #### [facility] [address] [place] [address] Specific gravity (U) [Rel density] 1.011 Normal 1.005 - 1.035 [facility] Comment on above: Performed By: #### U A #### [facility] [address] [place] [address] Urobilinogen (U) [Mass/Vol] mg/dL Normal 0.0 - 1.9 [facility] Comment on above: Performed By: #### U A #### [facility] [address] [place] [address] Urinalysison 06-26-2021 Color (U) STRAW See Below [facility] [employer] Work Phone: Comment on above: Reference Range: STR AW,YELLOW Glucose Ql (U) Negative NEGATIVE [facility] Work Phone: Ketones Ql (U) Negative NEGATIVE [facility] Work Phone: Leukocyte esterase Test strip Ql (U) Negative NEGATIVE [facility] Work Phone: pH (U) 6.0 [pH] 5.0 - 8.0 [facility] Work Phone: Protein (U) [Mass/Vol] Negative NEGATIVE [facility] Work Phone: RBC (U) [#/Vol] Negative NEGATIVE [facility] Work Phone: Specific gravity (U) [Rel density] 1.011 1 See Below [facility] Work Phone: Comment on above: Reference Range: 1.0 05 - 1.035 Urinalysis Negative NEGATIVE [facility] Work Phone: Urinalysis <2.0 0.0 - 1.9 [facility] [employer] Work Phone: Urinalysis CLEAR CLEAR [facility] [employer] Work Phone: Office Visit (Internal Medic ine)on [...] Costochondritis; JOSE = N; Verified Transmission to [id number]; Last Updated By: Eyestorm; 06/23/2021 8:24:51 AM Acupuncture Group Referral Evaluation and Treatment Evaluate AND Treat Status: Hold For - Scheduling Requested for: 23Jun2021 Ordered;For: Costochondritis; Ordered By: Viral Amado Performed: Due: [id number] Provider Impressions Patient is a 50-year-old male [...] delivered by entirely different geographical areas in [place] (which is unusual). Of note he has been to multiple ERs including the [place] emergency room [facility] emergency room , [facility] emergency room for similar complaints and similar [...] his symptoms. Discussed referral to OM in [facility] however he is deferring at this time. [...] is established with a psychiatrist at the [facility] however he cannot tell me her name. [...] has established with a psychiatrist at the [facility] but is not currently on any medications. [...] doctor kalyani (more content not included)... Normal [facility] Tobacco Screening.on 021 Fall risk assessment a) No falls within the last year [employer] [email or web address] Work Phone: Tobacco use status [facility] b) No [employer] [facility] Work Phone: [employer] Flowsheeton [employer] Flowsheet Sodium, Low [facility] Work Phone: [phone] [employer] Flowsheet Healthy Eating [facility] Work Phone: [phone] [employer] Flowsheet GERD, anemia [facility] Work Phone: [phone] [employer] Flowsheet NKFA, but chocolate and caffeine cause stomach issues [facility] Work Phone: [phone] [employer] Flowsheet _1 family member [facility] Work Phone: [employer] Flowsheet Vitamins and Minerals [facility] Work Phone: [phone] [employer] Flowsheet 0-25% whole [facility] Work Phone: [phone] [employer] Flowsheet 0-25% fresh [facility] Work Phone: [phone] [employer] Flowsheet 75%-100% fresh [facility] Work Phone: [phone] [employer] Flowsheet 0 plant-based items [facility] Work Phone: [phone] [employer] Flowsheet 0-25% lowfat [facility] Work Phone: [phone] [employer] Flowsheet XAVIER [facility] Work Phone: [phone] [facility] [employer] Flowsheet At hospital frequently, has visted office multiple times. Prefers to eat Kosher when he can [facility] Work Phone: [phone] No Panel Informationon 06-21 [facility] Work Phone: [phone] [email or web address]?= {[email or web address]} [facility] Work Phone: [phone] Order Reconciliationon 06-21 Order Reconciliation Page 1 [...] 1 tab(s) orally once a day Normal [facility] IO UA (automated w/o microsc opy)on 06-20-2021 Protein (U) [Mass/Vol] Negative [facility] Work Phone: [phone] IO UA (automated w/o microscopy) Negative [facility] Work Phone: [phone] IO UA (automated w/o microscopy) Normal (0.2-1.0 mg/dl) [facility] Work Phone: [phone] IO UA (automated w/o microscopy) 5.5 1 [facility] Work Phone: [phone] IO UA (automated w/o microscopy) 1.025 1 [facility] Work Phone: IO UA (automated w/o microscopy) Clear [facility] Work Phone: IO UA (automated w/o microscopy) Yellow [facility] Work Phone: Laboratory - Microbiology an d Antimicrobial susceptibilityon 06-20-2021 FLUAV RNA TATI+probe Ql (Nph) FLU A by PCR NEGATIVE (Reference Range: not available) [facility] FLUBV RNA TATI+probe Ql (Nph) FLU B by PCR NEGATIVE (Reference Range: not available) [facility] SARS-CoV-2 (COVID-19) RNA TATI+probe Ql (Unsp spec) SARS-CoV-2 by PCR NEGATIVE (NEG ) [facility] Office Visit (Urgent Care)on 06-20-2021 Follow-up visit Orders Palpitations IO EKG Electrocardiogram- 12 Lead; Status:Active - Perform Order,Retrospective Authorization; Requested for:[id number]; Perform:In Office; Due:[id number]; Last Updated By:Marianne Breen; 06/20/2021 2:04:28 PM;Ordered; [...] PREP Vitals Vital Signs Recorded: 20Jun2021 02:03PMRecorded: 20Jun2021 02:02PM Ngnmktxi83, LUE, Uaqzfcf673, RUE, Sitting Qwnafouum15, LUE, Iapxuxl36, RUE, Sitting Scmsplhsycu56.1 F Heart Rate84 Ndsfojfatun54 O2 Xlwriwsonf00 Pain Scale8/10 Physical Exam Constitutional: Well developed, [...] Jun 20 2021 3:08PM EST (Author) Normal [facility] Laboratory - Chemistry and C hemistry - challengeon 06-18-2021 Anion gap [Moles/Vol] Anion Gap 16 MMOL/ L (0-19 MMOL/L) 0 - 19 MMOL/L [facility] Calcium [Mass/Vol] Calcium 9.2 MG/DL (8.5-10.4 MG/DL) 8.5 - 10.4 MG/DL S Chloride [Moles/Vol] Chloride 103 MMOL/L (97-107 MMOL/L) 97 - 107 MMOL/L [facility] CO2 [Moles/Vol] Carbon Dioxide 24 MM OL/L (24-31 MMOL/L) 24 - 31 MMOL/L [facility] Creatinine [Mass/Vol] Creatinine R 1.0 M G/DL (0.4-1.6 MG/DL) 0.4 - 1.6 MG/DL [facility] GFR/1.73 sq M.predicted MDRD (S/P/Bld) [Vol rate/Area] EGFR 84 mL/min/1.73 m2 (Reference Range: not available) GFR ml/min/1.73m2 Stage ----- 90 1 60-89 2 30-59 3 15-29 4 <15 5 For -Americans, multiply EGFR result by 1.210 Calculation not validated for patients under 18 years of age. Performed at [address] [address] [facility] Glucose [Mass/Vol] Glucose 100 MG/DL H (65-99 MG/DL) High 65 - 99 MG/DL [facility] Potassium [Moles/Vol] Potassium R 4.1 MM OL/L (3.4-5.1 MMOL/L) 3.4 - 5.1 MMOL/L [facility] Sodium [Moles/Vol] Sodium 143 MMOL/L (133-145 MMOL/L) RESULTS REVIEWED 133 - 145 MMOL/L [facility] Troponin T.cardiac [Mass/Vol] HS Troponin T,Gen [...] until 8 hours following last biotin administration. [employer] Urea nitrogen [Mass/Vol] BUN 12 MG/DL (8-25 MG/DL) 8 - 25 MG/DL [employer] Urea nitrogen/Creatinine [Mass ratio] BUN Creatinine Ratio 12.0 RATIO (8-21 RATIO) 8 - 21 RATIO [employer] Laboratory - Hematology and Cell countson 06-18-2021 Basophils (Bld) [#/Vol] Abs Baso 0.01 K/UL (0.00-0.22 K/UL) 0.00 - 0.22 K/UL [facility] Basophils/100 WBC (Bld) Basophil 0.30 % (0-1 %) 0 - 1 % [facility] Differential cell count method Nom (Bld) Diff Type AUTO DIFF (Reference Range: not available) [facility] Eosinophils (Bld) [#/Vol] Abs Eos 0.07 K/UL (0-0.45 K/UL) 0 - 0.45 K/UL [facility] Eosinophils/100 WBC (Bld) Eosinophil 2.10 % (0-3 %) 0 - 3 % [facility] Erythrocyte distribution width (RBC) [Entitic vol] RDW SD 39.3 FL (37.0-54.0 FL) 37.0 - 54.0 FL [facility] Erythrocyte distribution width (RBC) [Ratio] RDW CV 12.9 % (11.7-15.0 %) 11.7 - 15.0 % [facility] Hematocrit (Bld) [Volume fraction] HCT 41.2 % (41-50 %) 41 - 50 % [facility] Hemoglobin (Bld) [Mass/Vol] HGB 13.6 GM/DL (13.5-16.5 GM/DL) 13.5 - 16.5 GM/DL S Immature granulocytes (Bld) [#/Vol] Abs Imm Neut 0.01 K/UL (0.0-0.1 K/UL) 0.0 - 0.1 K/UL S Lymphocytes (Bld) [#/Vol] Abs Lymph 1.18 K/UL L (1.2-3.2 K/UL) Low 1.2 - 3.2 K/UL S Lymphocytes/100 WBC (Bld) Lymphocyte 35.00 % (20-40 %) 20 - 40 % S MCH (RBC) [Entitic mass] MCH 27.9 PG (26-34 PG) 26 - 34 PG S MCHC (RBC) [Mass/Vol] MCHC 33.0 % (31-37 %) 31 - 37 % S MCV (RBC) [Entitic vol] MCV 84.6 FL (80-100 FL) 80 - 100 FL S Monocytes (Bld) [#/Vol] Abs [place] 0.33 K/UL (0-0.8 K/UL) 0 - 0.8 K/UL [facility] Monocytes/100 WBC (Bld) Monocyte 9.80 % H (0-8 %) High 0 - 8 % [facility] Neutrophils (Bld) [#/Vol] Abs.Neut.Calculated 1.77 K/UL (Reference Range: not available) Performed at [facility] [address] [facility] [address] [facility] Neutrophils (Bld) [#/Vol] Abs Neut 1.77 K/UL L (1.8-7.7 K/UL) Low 1.8 - 7.7 K/UL [facility] Neutrophils.immature/ 100 WBC (Bld) Immature Neut % 0.30 % (0.0-1.0 %) 0.0 - 1.0 % [facility] Nucleated RBC/100 WBC (Bld) [Ratio] NRBCs 0 /100 WBC (0 /100 WBC) [facility] Platelet mean volume (Bld) [Entitic vol] MPV 10.7 CU (7.0-12.6 CU) 7.0 - 12.6 CU [facility] Platelets (Bld) [#/Vol] PLT 153 K/UL (150-450 K/UL) 150 - 450 K/UL [facility] RBC (Bld) [#/Vol] RBC 4.87 M/UL (4.5-5 .5 M/UL) 4.5 - 5.5 M/UL [facility] Segmented neutrophils/100 WBC (Bld) Granulocyte 52.50 % (50-70 %) 50 - 70 % [facility] WBC (Bld) [#/Vol] WBC 3.4 K/UL L (4.5- 11.0 K/UL) Low 4.5 - 11.0 K/UL [facility] Laboratory - Microbiology an d Antimicrobial susceptibilityon 06-18-2021 FLUAV RNA TATI+probe Ql (Nph) FLU A by PCR NEGATIVE (Reference Range: not available) [facility] FLUBV RNA TATI+probe Ql (Nph) FLU B by PCR NEGATIVE (Reference Range: not available) [facility] SARS-CoV-2 (COVID-19) RNA TATI+probe Ql (Unsp spec) SARS-CoV-2 by PCR NEGATIVE (NEG ) [facility] No Panel Informationon 06-18 XR Chest 2 Views (PA and lat) (Reference Range: not available) *FINAL Date of Service: 06/18/2021 04:17 Adm #: [id number] Reading Dr:SOHAIL MARINA Signoff Dr: SOHAIL MARINA [...] structures are unchanged. Impression: Normal chest radiographs. [id number] This report has been produced using speech recognition. Original Interpreting Physician: SOHAIL MARINA M.D. Original Transcribed by/Date: [facility] Jun 18 2021 8:50A Original Electronically Signed by/Date: SOHAIL MARINA M.D. Jun 18 2021 8:50A Addendum Interpreting Physician: Addendum Transcribed by/Date: NO ADDENDUM Addendum Electronically Signed by/Date: [facility] HS Troponin T Delta 0 (0-4 ) Performed at [address] [address] 0 - 4 [facility] EKG (Reference Range : not available) Ventricular Rate : 86 BPM Atrial Rate : 86 BPM P-R Interval : 168 ms QRS Duration : 102 ms Q-T Interval : 360 ms QTC Calculation(Bazett) : 430 ms Calculated P [place] : 37 degrees Calculated R [place] : -16 degrees Calculated T [place] : 22 degrees Diagnosis:Normal sinus rhythm Normal ECG When compared with ECG of 13-JUN-2021 11:32, Confirmed by AGUSTINA HENNESSY DO ([id number]) on 06/18/2021 10:20:41 AM See also the report from this date [facility] CASE MANAGEMon 06-15-2021 CASE MANAGEM HNO ID: [id number] Author: PADDY Grewal Service: Social Work Author Type: Wire Drawing Setter Type: Care Mgt Progress Note Filed: 06/15/2021 2:51 PM Note Text: CARE MANAGEMENT PROGRESS NOTE SERVICE DATE: 06/15/2021 SERVICE TIME: 2:50 PM LOS: 0 days Indigent medication received from pharmacy and provided to patient. He has a bus pass and is now discharged from hospital. SIGNATURE: PADDY Grewal PATIENT NAME: Hosea Alvarez DATE: June 15, 2021 TIME: 2:50 PM PAGER/CONTACT #: [phone] [facility] CASE MANAGEM HNO ID: [id number] Author: PADDY Grewal Service: Social Work Author Type: Wire Drawing Setter Type: Care Mgt Progress Note Filed: 06/15/2021 11:49 AM Note Text: CARE MANAGEMENT PROGRESS NOTE SERVICE DATE: 06/15/2021 SERVICE TIME: 11:21 AM LOS: 0 days Patient told his nurse that he didn't have money to pay for prescription for clonodine for his high blood pressure. TRAINMASTER provided education about $4 generic medication program at [facility] which covers this medication. TRAINMASTER and KIT Armijo processed a 3 day indigent supply for this patient. Per pharmacy this is likely to take 4 hours. Note patient is waiting in ED waiting room for discharge indigent medications. SIGNATURE: PADDY Grewal PATIENT NAME: Hosea Alvarez DATE: June 15, 2021 TIME: 11:21 AM PAGER/CONTACT #: [phone] Normal [facility] CBC and Differentialon 06-15 Abs Baso <0.03 Normal <0.11 [facility] Abs Wilbarger 0.31 k/uL Normal <0.87 [facility] Abs Neut 1.95 k/uL Normal 1.45-7.50 [facility] Absolute nRBC <0.01 Normal <0.01 [facility] Basophils/100 WBC (Bld) 0.3 % Normal [facility] DTYPE Auto Diff Normal [facility] Eosinophils (Bld) [#/Vol] 0.08 10*3/uL Normal <0.46 [facility] Eosinophils/100 WBC (Bld) 2.6 % Normal [facility] Erythrocyte distribution width (RBC) [Ratio] 13.1 % Normal 11.5-15.0 [facility] Hematocrit (Bld) [Volume fraction] 39.2 % Normal 39.0-51.0 [facility] Hemoglobin (Bld) [Mass/Vol] 12.8 g/dL Low 13.0-17.0 [facility] Lymphocytes (Bld) [#/Vol] 0.72 10*3/uL Low 1.00-4.00 [facility] Lymphocytes/100 WBC (Bld) 23.5 % Normal [facility] MCH 28.2 pG Normal 26.0-34.0 [facility] MCHC (RBC) [Mass/Vol] 32.7 g/dL Normal 30.5-36.0 [facility] MCV (RBC) [Entitic vol] 86.3 fL Normal 80.0-100.0 [facility] Monocytes/100 WBC (Bld) 10.1 % Normal [facility] Neutrophils/100 WBC (Bld) 63.5 % Normal [facility] NRBCs 0.0 /100 WBC Normal 0 [facility] Platelet mean volume (Bld) [Entitic vol] 11.1 fL Normal 9.0-12.7 [facility] Platelets (Bld) [#/Vol] 136 10*3/uL Low 150-400 [facility] Comment on above: Result Comment[facility] RBC (Bld) [#/Vol] 4.54 10*6/uL Normal 4.20-6.00 [facility] WBC (Bld) [#/Vol] 3.07 10*3/uL Low 3.70-11.00 [facility] Abs Baso <0.03 Normal <0.11 [facility] Abs [place] 0.32 k/uL Normal <0.87 [facility] Abs Neut 2.30 k/uL Normal 1.45-7.50 [facility] Absolute nRBC <0.01 Normal <0.01 [facility] Basophils/100 WBC (Bld) 0.6 % Normal [facility] DTYPE Auto Diff Normal [facility] Eosinophils (Bld) [#/Vol] 0.09 10*3/uL Normal <0.46 [facility] Eosinophils/100 WBC (Bld) 2.5 % Normal [facility] Erythrocyte distribution width (RBC) [Ratio] 13.1 % Normal 11.5-15.0 [facility] Hematocrit (Bld) [Volume fraction] 38.1 % Low 39.0-51.0 [facility] Hemoglobin (Bld) [Mass/Vol] 12.5 g/dL Low 13.0-17.0 [facility] Lymphocytes (Bld) [#/Vol] 0.88 10*3/uL Low 1.00-4.00 [facility] Lymphocytes/100 WBC (Bld) 24.3 % Normal [facility] MCH 28.2 pG Normal 26.0-34.0 [facility] MCHC (RBC) [Mass/Vol] 32.8 g/dL Normal 30.5-36.0 [facility] MCV (RBC) [Entitic vol] 86.0 fL Normal 80.0-100.0 [facility] Monocytes/100 WBC (Bld) 8.8 % Normal [facility] Neutrophils/100 WBC (Bld) 63.8 % Normal [facility] NRBCs 0.0 /100 WBC Normal 0 [facility] Platelet mean volume (Bld) [Entitic vol] 10.9 fL Normal 9.0-12.7 [facility] Platelets (Bld) [#/Vol] 142 10*3/uL Low 150-400 [facility] RBC (Bld) [#/Vol] 4.43 10*6/uL Normal 4.20-6.00 [facility] WBC (Bld) [#/Vol] 3.62 10*3/uL Low 3.70-11.00 [facility] Comp Metabolic Panelon 06-15 Albumin [Mass/Vol] 4.3 g/dL Normal 3.9-4.9 [facility] ALP [Catalytic activity/Vol] 68 U/L Normal 38-113 [facility] ALT [Catalytic activity/Vol] 24 U/L Normal 10-54 [facility] Anion gap [Moles/Vol] 8 mmol/L Low 9-18 [facility] AST [Catalytic activity/Vol] 22 U/L Normal 14-40 [facility] Bilirubin [Mass/Vol] 0.4 mg/dL Normal 0.2-1.3 [facility] Calcium [Mass/Vol] 9.3 mg/dL Normal 8.5-10.2 [facility] Chloride [Moles/Vol] 102 mmol/L Normal 97-105 [facility] CO2 [Moles/Vol] 29 mmol/L Normal 22-33 [facility] Creatinine [Mass/Vol] 0.99 mg/dL Normal 0.73-1.22 [facility] eGFR- Amer. >60 Normal [facility] eGFR-All Other Races >60 Normal [facility] Comment on above: Result Comment: eGFR (Estimated [...] GFR. Glucose [Mass/Vol] 101 mg/dL High 74-99 [facility] Potassium [Moles/Vol] 4.3 mmol/L Normal 3.7-5.1 [facility] Protein [Mass/Vol] 7.0 g/dL Normal 6.3-8.0 [facility] Sodium [Moles/Vol] 139 mmol/L Normal 136-144 [facility] Urea nitrogen [Mass/Vol] 12 mg/dL Normal 9-24 [facility] Albumin [Mass/Vol] 4.3 g/dL Normal 3.9-4.9 [facility] ALP [Catalytic activity/Vol] 67 U/L Normal 38-113 [facility] ALT [Catalytic activity/Vol] 23 U/L Normal 10-54 [facility] Anion gap [Moles/Vol] 10 mmol/L Normal 9-18 [facility] AST [Catalytic activity/Vol] 21 U/L Normal 14-40 [facility] Bilirubin [Mass/Vol] 0.2 mg/dL Normal 0.2-1.3 [facility] Calcium [Mass/Vol] 8.8 mg/dL Normal 8.5-10.2 [facility] Chloride [Moles/Vol] 103 mmol/L Normal 97-105 [facility] CO2 [Moles/Vol] 26 mmol/L Normal 22-33 [facility] Creatinine [Mass/Vol] 1.00 mg/dL Normal 0.73-1.22 [facility] eGFR- Amer. >60 Normal [facility] eGFR-All Other Races >60 Normal [facility] Comment on above: Result Comment: eGFR (Estimated [...] GFR. Glucose [Mass/Vol] 114 mg/dL High 74-99 [facility] Potassium [Moles/Vol] 4.1 mmol/L Normal 3.7-5.1 [facility] Protein [Mass/Vol] 6.7 g/dL Normal 6.3-8.0 [facility] Sodium [Moles/Vol] 139 mmol/L Normal 136-144 [facility] Urea nitrogen [Mass/Vol] 13 mg/dL Normal 9-24 [facility] ED NOTEon 06-15-2021 ED NOTE HNO ID: [id number] Author: Kay Phillips RN Service: Critical Care Author Type: Registered Nurse Type: ED Notes Filed: 06/15/2021 7:26 AM Note Text: Pt presents to Er with c/c of back pain and hx of kidney stenosis. [facility] ED NOTE HNO ID: [id number] Author: Vita Guerrero RN Service: Nursing Author Type: Registered Nurse Type: ED Notes Filed: 06/15/2021 12:31 AM Note Text: Discharge instructions and follow ups reviewed with the pt. Pt verbalizes understanding. No further questions asked. Vitals stable. Pt departs ED in stable condition [facility] ED NOTE HNO ID: [id number] Author: Vita Guerrero RN Service: Nursing Author Type: Registered Nurse Type: ED Notes Filed: 06/14/2021 11:31 PM Note Text: Patient educated to stay in bed. Patient was walking around carrying a IV bag and pump. Patient has two side rails up. [facility] ED NOTE HNO ID: [id number] Author: Sena Elias RN Service: ? Author Type: Registered Nurse Type: ED Notes Filed: 06/14/2021 10:36 PM Note Text: Bed: ED-10 Expected date: 06/14/21 Expected time: Means of arrival: Comments: triage Normal [facility] ED PROV NOTEon 06-15-2021 ED PROV NOTE HNO ID: [id number] Author: Cheryl Jesus MD Service: Emergency Medicine Author Type: Physician Type: ED Provider Notes Filed: 06/15/2021 4:57 PM Note Text: ED Provider Note Patient Name: Hosea Alvarez SERVICE DATE: 06/15/21 History Patient presents with: Back Pain: hx of kidney stenosis Mr. Alvarez, 50-year-old male with a past medical history of hemorrhoids, hypertension, hypoglycemia, reported renal artery stenosis who is from [facility] and is currently homeless here in [place] who arrives to the emergency department with [...] was seen by the vascular surgeon and [place] and due to a normal renal function [...] was likely dehydrated. He was seen at [facility] earlier yesterday for the same thing. His [...] systems across the various states of [place], [place], [place] and [place]. History provided by: Medical records and patient [...] - Caffeine Rash Other reaction(s): Shakiness - [place] GI Upset, Rash, Vomiting Statused by Person: ?Imelda Meza.(T Carter2) on Statused by Person: ?SRAVANTHI MONGE([facility]) on Statused by Person: ?Tammy. 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 [facility] ED PROV NOTE HNO ID: [id number] Author: Santa Thurman, DO Service: ? Author [...] patient. He states he was seen at [facility] emergency department earlier today for the same. [...] - Caffeine Rash Other reaction(s): Shakiness - [place] GI Upset, Rash, Vomiting Statused by Person: ?Imelda Meza.(T Carter2) on Statused by Person: ?SRAVANTHI MONGE([facility]) on Statused by Person: ?Imelda Meza.(Altaf Carter2) on Statused by Person: ?SRAVANTHI MONGE([facility]) on - Amoxicillin GI Upset - Chocolate Flavor GI Upset - Ciprofloxacin Other: See Comments - Diazepam Unknown - Fentanyl Mental Status Change - Lorazepam GI Upset Other reaction(s): Abdominal Pain - Seasonal Allergies GI Upset Abdominal pain Abdominal pain - Serotonin Hcl Mental Status Change 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 [facility] Ethanolon 06-15-2021 Ethanol [Mass/Vol] mg/dL Normal <11 [facility] Magnesiumon 06-15-2021 Magnesium [Mass/Vol] 1.8 mg/dL Normal 1.7-2.3 [facility] Troponin Ton 06-15-2021 Troponin T <0.010 Normal 0.000-0.029 [facility] Urinalysis with Microscopico n 06-15-2021 Bilirubin, Urine Negative Normal Negative [facility] Clarity (U) Clear Normal Clear [facility] Color (U) Colorless Critically abnormal Yellow [facility] Glucose Ql (U) Negative Normal Negative [facility] Hemoglobin/Blood,Ur Negative Normal Negative [facility] Ketones Ql (U) Negative Normal Negative [facility] Leukest Negative Normal Negative [facility] Nitrite Ql (U) Negative Normal Negative [facility] pH (U) 6.0 [pH] Normal 5.0-8.0 [facility] Protein, Urine Negative Normal Negative [facility] RBC 0-3 Normal 0-3 [facility] Specific [place], Ur 1.007 Normal 1.005-1.030 [facility] Urine, Other FOR EAST USE ONLY SEE COMMENT Normal [facility] Comment on above: Result Comment: 1+ Mucous Urobilinogen (U) [Mass/Vol] Negative Normal Negative [facility] WBC 0-5 Normal 0-5 [facility] ACETAMINOPHENon 06-14-2021 Acetaminophen [Mass/Vol] ug/mL Normal 10.0 - 30.0 [facility] Comment on above: Performed By: #### C BCDF #### [facility] [address] [facility], [place] [id number] ALCOHOLon 06-14-2021 Ethanol [Mass/Vol] mg/dL Normal [facility] Comment on above: Result Comment: FOR MEDICAL USE ONLY. . REF VALUES <10 Performed By: #### A LC ####[facility] [place], [place] [id number] Acetaminophen Level, Serumon 06-14-2021 Acetaminophen [Mass/Vol] ug/mL [...] CASE MANAGEMon 06-14-2021 CASE MANAGEM HNO ID: [id number] Author: STONE Daugherty Service: Case Management Author Type: Wire Drawing Setter Type: Care Mgt Progress Note Filed: 06/14/2021 6:09 PM Note Text: CARE MANAGEMENT PROGRESS NOTE SERVICE DATE: 06/14/2021 SERVICE TIME: 5:33 PM LOS: 0 days DAVID was informed by ER registrant that patient was requesting to speak to SW regarding his wait. Patient was seen at earlier for same complaint, in which patient stated he was screwed over because they would not give him correct medication. Patient stated that he came by [facility] for chief complaint of chest pain and hypertension. Sw met with patient to address his concern. Patient stated that he comes to be seen for high blood pressure, but is thinking of going to [facility] due to his wait time. Patient was requesting this insurance underwriter sales contact [facility] ER to see how long their [...] stated patient was requesting to speak with insurance underwriter sales. Sw met with patient to discuss concerns. [...] 14, 2021 TIME: 5:33 PM PAGER/CONTACT #: [phone] Normal [facility] CBC AND DIFFERENTIALon 06-14 % AUTOMATED IMMATURE GRAN 0.3 % Normal 0.0 - 0.9 [facility] Comment on above: Result Comment: Kath ture Granulocyte Count (IG) includes promyelocytes, myelocytes and metamyelocytes but does not include bands. Percent differential counts (%) should be interpreted in the context of the absolute cell counts (cells/L). Performed By: #### C [facility] ####[facility] [facility] [place], [place] [id number] Basophils (Bld) [#/Vol] 0.01 10*3/uL Normal 0.00 - 0.10 [facility] Comment on above: Performed By: #### C BCDF ####[facility] [facility], [place] [phone] Basophils/100 WBC (Bld) 0.3 % Normal 0.0 - 2.0 [facility] Comment on above: Performed By: #### C BCDF ####[id number] [facility], [place] [phone] Eosinophils (Bld) [#/Vol] 0.06 10*3/uL Normal 0.00 - 0.70 [facility] Comment on above: Performed By: #### C BCDF ####[address], [place] [id number] Eosinophils/100 WBC (Bld) 1.7 % Normal 0.0 - 6.0 [facility] Comment on above: Performed By: #### C BCDF ####[id number] [facility], [place] [phone] Erythrocyte distribution width (RBC) [Ratio] 13.1 % Normal 11.5 - 14.5 [facility] Comment on above: Performed By: #### C BCDF ####[address], [place] [id number] Hematocrit (Bld) [Volume fraction] 38.4 % Low 41.0 - 52.0 [facility] Comment on above: Performed By: #### C BCDF ####[facility] [facility] [place], [place] [phone] Hemoglobin (Bld) [Mass/Vol] 13.0 g/dL Low 13.5 - 17.5 [facility] Comment on above: Performed By: #### C BCDF ####[facility] [facility] [place], [place] [id number] Lymphocytes (Bld) [#/Vol] 0.68 10*3/uL Low 1.20 - 4.80 [facility] Comment on above: Performed By: #### C BCDF ####[facility] [facility] [phone] Lymphocytes/100 WBC (Bld) 19.8 % Normal 13.0 - 44.0 [facility] Comment on above: Performed By: #### C BCDF ####[facility] [facility] [phone] MCHC (RBC) [Mass/Vol] 33.9 g/dL Normal 32.0 - 36.0 [facility] Comment on above: Performed By: #### C BCDF ####[facility] [facility] [phone] MCV (RBC) [Entitic vol] 82 fL Normal 80 - 100 [facility] Comment on above: Performed By: #### C BCDF ####[facility] [facility] [phone] Monocytes (Bld) [#/Vol] 0.31 10*3/uL Normal 0.10 - 1.00 [facility] Comment on above: Performed By: #### C BCDF ####[place] [id number] [facility], [place] [phone] Monocytes/100 WBC (Bld) 9.0 % Normal 2.0 - 10.0 [facility] Comment on above: Performed By: #### C BCDF ####[facility] [facility] [phone] Neutrophils (Bld) [#/Vol] 2.36 10*3/uL Normal 1.20 - 7.70 [facility] Comment on above: Performed By: #### C BCDF ####[facility] [facility] [phone] Neutrophils/100 WBC (Bld) 68.9 % Normal 40.0 - 80.0 [facility] Comment on above: Performed By: #### C BCDF ####[facility] [facility] [phone] Platelets (Bld) [#/Vol] 142 10*3/uL Low 150 - 450 [facility] Comment on above: Performed By: #### C BCDF ####[facility] [facility] [place], [place] [phone] RBC 4.66 x10E12/L Normal 4.50 - 5.90 [facility] Comment on above: Performed By: #### C BCDF ####[facility] [facility] [place], [place] [phone] WBC (Bld) [#/Vol] 3.4 10*3/uL Low 4.4 - 11.3 [facility] Comment on above: Performed By: #### C BCDF ####[facility] [facility] [place], [place] [id number] COMPREHENSIVE PANELon 2020 Albumin [Mass/Vol] 4.1 g/dL Normal 3.4 - 5.0 [facility] Comment on above: Performed By: #### U A #### [facility] [address] [facility] [place], [place] [id number] ALP [Catalytic activity/Vol] 52 U/L Normal 33 - 120 [facility] Comment on above: Performed By: #### U A #### [facility] [address] [facility] [place], [place] [phone] ALT [Catalytic activity/Vol] 21 U/L Normal 10 - 52 [facility] Comment on above: Result Comment: Yanni ents treated with Sulfasalazine may generate falsely decreased results for ALT. Performed By: #### U A #### [facility] [address] [facility] [place], [place] [phone] Anion gap [Moles/Vol] 11 mmol/L Normal 10 - 20 [facility] Comment on above: Performed By: #### U A #### [facility] [address] [facility] [place], [place] [phone] AST [Catalytic activity/Vol] 16 U/L Normal 9 - 39 [facility] Comment on above: Performed By: #### U A #### [facility] [address] [facility] [place] [id number] Bilirubin [Mass/Vol] 0.3 mg/dL Normal 0.0 - 1.2 [facility] Comment on above: Performed By: #### U A #### [place] [id number] [facility] [place], [place] [id number] Calcium [Mass/Vol] 8.9 mg/dL Normal 8.6 - 10.3 [facility] Comment on above: Performed By: #### U A #### [address] [place], [place] [id number] Chloride [Moles/Vol] 106 mmol/L Normal 98 - 107 [facility] Comment on above: Performed By: #### U A #### [address], [place] [id number] Creatinine [Mass/Vol] 0.99 mg/dL Normal 0.50 - 1.30 [facility] Comment on above: Performed By: #### U A #### [address] [place], [place] [id number] GFR- AM. >60 Normal >60 [facility] Comment on above: Result Comment: CALC ULATIONS OF ESTIMATED GFR ARE PERFORMED USING THE MDRD STUDY EQUATION FOR THE IDMS-TRACEABLE CREATININE METHODS. CLIN CHEM 2007;53:766-72 Performed By: #### U A #### [address] [place], [place] [id number] GFR-NON AM. >60 Normal >60 [facility] Comment on above: Performed By: #### U A #### [address] [place], [place] [phone] Glucose [Mass/Vol] 115 mg/dL High 74 - 99 [facility] Comment on above: Performed By: #### U A #### [address] [place], [place] [id number] HCO3 (Bld) [Moles/Vol] 25 mmol/L Normal 21 - 32 [facility] Comment on above: Performed By: #### U A #### [facility] [address] [facility], [place] [phone] Potassium [Moles/Vol] 4.3 mmol/L Normal 3.5 - 5.3 [facility] Comment on above: Performed By: #### U A #### [facility] [address] [facility], [place] [id number] Protein [Mass/Vol] 6.8 g/dL Normal 6.4 - 8.2 [facility] [facility] Comment on above: Performed By: #### U A #### [facility] [address] [facility], [place] [id number] Sodium [Moles/Vol] 138 mmol/L Normal 136 - 145 [facility] Comment on above: Performed By: #### U A #### [facility] [id number] [place] [address], [place] [phone] Urea nitrogen [Mass/Vol] 12 mg/dL Normal 6 - 23 [facility] Comment on above: Performed By: #### U A #### [facility] [address] [facility], [place] [phone] CORONAVIRUS 2019 BY PCRon SARS-CoV-2 (COVID-19) RNA TATI+probe Ql (Unsp spec) Not detected Normal Not Detected [facility] Comment on above: Result Comment: . This test has received FDA Emergency Use Authorization (EUA) and has been verified by [facility]. This test is only authorized for the duration of time that circumstances exist to justify the authorization of the emergency use of in vitro diagnostic tests for the detection of SARS-CoV-2 virus and/or diagnosis of COVID-19 infection under section 564(b)(1) of the Act, 21 U.S.C. 360bbb-3(b)(1), unless the authorization is terminated or revoked sooner. [facility] is certified under CLIA-88 as qualified to perform high complexity testing. Testing is performed in the [facility] laboratory located at [id number] [place] [address], [place] [address]. SARS-CoV-2/Flu/RSV Multiplex Test: Fact sheet for providers: https://www.fda.gov/media/952667/download Fact sheet for patients: https://www.fda.gov/media/286276/download Performed By: #### C OV19 ####[facility] [facility], [place] [phone] Lab Specimen Source Nasal, Nasopharyngeal Normal [facility] Comment on above: Performed By: #### C OV19 ####[facility] [facility], [place] [phone] CREATINE KINASEon 06-14-2021 CK [Catalytic activity/Vol] 94 U/L Normal 0 - 325 [facility] Comment on above: Performed By: #### C K ####[facility] [facility], [place] [phone] Complete Blood Count + Diffe rentialon 06-14-2021 Basophils/100 WBC (Bld) 0.3 % 0.0 - 2.[address] [facility] [address] Work Phone: [phone] Erythrocyte distribution width (RBC) [Ratio] 13.1 % See Below [address] [facility] [address] Work Phone: [phone] Comment on above: Reference Range: 11. 5 - 14.5 Hematocrit (Bld) [Volume fraction] 38.4 % below low threshold See Below [address] [facility] [address] Work Phone: [phone] Comment on above: Reference Range: 41. 0 - 52.0 Hemoglobin (Bld) [Mass/Vol] 13.0 g/dL below low threshold See Below [address] [facility] [address] Work Phone: [phone] Comment on above: Reference Range: 13. 5 - 17.5 Lymphocytes/100 WBC (Bld) 19.8 % See Below [address] [facility] [address] Work Phone: [phone] Comment on above: Reference Range: 13. 0 - 44.0 MCHC (RBC) [Mass/Vol] 33.9 g/dL See Below [address] [facility] [address] Work Phone: [phone] Comment on above: Reference Range: 32. 0 - 36.0 MCV (RBC) [Entitic vol] 82 fL 80 - [address] [facility] [address] Work Phone: [phone] Monocytes/100 WBC (Bld) 9.0 % 2.0 - 10.[address] [facility] [address] Work Phone: [phone] Neutrophils/100 WBC (Bld) 68.9 % See Below [address] [facility] [address] Work Phone: [phone] Comment on above: Reference Range: 40. 0 - 80.0 Platelets (Bld) [#/Vol] 142 10*3/uL below low threshold 150 - [address] [facility] [address] Work Phone: [phone] RBC (Bld) [#/Vol] 4.66 {x10E12/L} See Below [address] [facility] [address] Work Phone: [phone] Comment on above: Reference Range: 4.5 0 - 5.90 WBC (Bld) [#/Vol] 3.4 10*3/uL below low threshold 4.4 - 11.[address] [facility] [address] Work Phone: [phone] Complete Blood Count + Differential 0.01 {x10E9/L} See Below [address] [facility] [address] Work Phone: [phone] Comment on above: Reference Range: 0.0 0 - 0.10 Complete Blood Count + Differential 0.06 {x10E9/L} See Below [address] [facility] [address] Work Phone: [phone] Comment on above: Reference Range: 0.0 0 - 0.70 Complete Blood Count + Differential 0.31 {x10E9/L} See Below [address] [facility] [address] Work Phone: [phone] Comment on above: Reference Range: 0.1 0 - 1.00 Complete Blood Count + Differential 0.68 {x10E9/L} below low threshold See Below [address] [facility] [address] Work Phone: [phone] Comment on above: Reference Range: 1.2 [...] Authorization (EUA) and has been verified by [facility]. This test is only authorized for the duration of time that circumstances exist to justify the authorization of the emergency use of in vitro diagnostic tests for the detection of SARS-CoV-2 virus and/or diagnosis of COVID-19 infection under section 564(b)(1) of the Act, 21 U.S.C. 360bbb-3(b)(1), unless the authorization is terminated or revoked sooner. [facility] is certified under CLIA-88 as qualified to perform high complexity testing. Testing is performed in the [facility] laboratory located at [address] [place] [address], [place] [address]. SARS-CoV-2/Flu/RSV Multiplex Test: Fact sheet for providers: https://www.fda.gov/media/312155/downloadFact sheet for patients: https://www.fda.gov/media/856917/download Covid 19 Resultson SARS-CoV-2 (COVID-19) RNA TATI+probe [...] You may also be contacted by the [facility] to see if any of your close [...] or Naproxen (Aleve) can also be used. Tshq-ifo-jerhbyh cough and cold medicines can be used according to the instructions on the package. Some gqtk-waj-dfbedsd medicines also contain acetaminophen. 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 Avoid touching your eyes, nose, and mouth [...] 24 guerline (more content not included)... Normal [facility] Creatine Kinase, Levelon CK [Catalytic activity/Vol] 94 U/L 0 - [address] [facility] [address] Work Phone: DRUG SCREEN,URINEon 06-14-20 21 AMPHETAMINE SCREEN,U Negative Normal NEGATIVE [facility] Comment on above: Result Comment: CUTO FF LEVEL: 500 NG/ML Cross-reactivity has been reported with high concentrations of the following drugs: buproprion, chloroquine, chlorpromazine, ephedrine, mephentermine, fenfluramine, phentermine, phenylpropanolamine, pseudoephedrine, and propranolol. Performed By: #### C BCDF #### [place] [id number] [facility], [place] [phone] BARBITURATES SCREEN,U Negative Normal NEGATIVE [facility] Comment on above: Result Comment: CUTO FF LEVEL: 200 NG/ML Performed By: #### C BCDF #### [address], [place] [phone] BENZODIAZEPINES SCREEN,U Negative Normal NEGATIVE [facility] Comment on above: Result Comment: CUTO FF LEVEL: 200 NG/ML Performed By: #### C BCDF #### [address], [place] [phone] CANNABINOIDS SCREEN,U Negative Normal NEGATIVE [facility] Comment on above: Result Comment: CUTO FF LEVEL: 50 NG/ML Performed By: #### C BCDF #### [address], [place] [phone] COCAINE METABOLITE SCREEN,U Negative Normal NEGATIVE [facility] Comment on above: Result Comment: CUTO FF LEVEL: 150 NG/ML Performed By: #### C BCDF #### [place] [id number] [facility], [place] [phone] DRUG SCREEN COMMENT SEE BELOW Normal [facility] Comment on above: Result Comment: Drug screen results are presumptive and should not be used to assess compliance with prescribed medication. Contact the performing [facility] laboratory to add-on definitive confirmatory testing if [...] directors. Performed By: #### C BCDF #### [address], [place] [phone] FENTANYL SCREEN,URINE Negative Normal NEGATIVE [facility] Comment on above: Result Comment: CUTO FF LEVEL: 1 NG/ML Performed By: #### C BCDF #### [address], [place] [phone] METHADONE SCREEN,U Negative Normal NEGATIVE [facility] Comment on above: Result Comment: CUTO FF LEVEL: 150 NG/ML The metabolite O-nyvqc-jqxtazgucbdzmx (LAAM) is not detected by this method in concentrations that would be found in the urine of patients on LAAM therapy. Performed By: #### C BCDF #### [address], [place] [phone] OPIATES SCREEN,U Negative Normal NEGATIVE [facility] Comment on above: Result Comment: CUTO FF LEVEL: 300 NG/ML The opiate screen does not detect fentanyl, meperidine, or tramadol. Oxycodone is not consistently detected (refer to Oxycodone Screen, Urine result). Performed By: #### C BCDF #### [address], [place] [phone] OXYCODONE SCREEN,U Negative Normal NEGATIVE [facility] Comment on above: Result Comment: CUTO FF LEVEL: 100 NG/ML This test will accurately detect both oxycodone and oxymorphone. Performed By: #### C BCDF #### [address], [place] [phone] PCP SCREEN,U Negative Normal NEGATIVE [facility] Comment on above: Result Comment: CUTO FF LEVEL: 25 NG/ML Cross-reactivity has been reported with dextromethorphan. Performed By: #### C [facility] #### [facility] [id number] [place] [id number] ED NOTEon 06-14-2021 ED NOTE HNO ID: [id number] Author: Aneudy Pittman RN Service: ? Author Type: Registered Nurse Type: ED Notes Filed: 06/14/2021 5:19 PM Note Text: Pt requesting to have his BP checked in both arms. He states he has an aneurysm. 149/99 left arm, 149/95 right arm Normal [facility] ED NOTE HNO ID: [id number] Author: Yang Gonzalez Medic Service: ? Author Type: School Community Relations Coordinator and Stick Puller Type: ED Notes Filed: 06/14/2021 2:38 PM Note Text: Attempted blood draw x 2, unsuccessful. Normal [facility] ED NOTE HNO ID: [id number] Author: Rhoda Diaz Service: ? Author Type: School Community Relations Coordinator and Stick Puller Type: ED Notes Filed: 06/14/2021 2:41 PM Note Text: Pt presents to ED with hypertension and intermittent chest pain, pt is a chronic alcoholic and normally gets hypertensive when he drinks, pt states last drink was last night, pt was seen at [facility] earlier today and left, states that he is red flagged there (psych/substance abuse), pain currently 4/10, pt normotensive on assessment (120/85), states that he feels dehydrated currently, denies any recent illness or other complaints at this time. Normal [facility] - Chemistry and C hemistry - challengeon 06-14-2021 Albumin BCP dye [Mass/Vol] 4.1 g/dL 3.4 - 5.[address] [facility] [address] Work Phone: ALP [Catalytic activity/Vol] 52 U/L 33 - [address] [facility] [address] Work Phone: ALT With P-5'-P [Catalytic activity/Vol] 21 U/L 10 - [address] [facility] [address] Work Phone: Comment on above: Patients treated wit h Sulfasalazine may generate falsely decreased results for ALT. Anion gap [Moles/Vol] 11 mmol/L 10 - [address] [facility] [address] Work Phone: [phone] AST With P-5'-P [Catalytic activity/Vol] 16 U/L 9 - [address] [facility] [address] Work Phone: [phone] Bilirubin [Mass/Vol] 0.3 mg/dL 0.0 - 1.[address] [facility] [address] Work Phone: [phone] Calcium [Mass/Vol] 8.9 mg/dL 8.6 - 10.[address] [facility] [address] Work Phone: [phone] Chloride [Moles/Vol] 106 mmol/L 98 - [address] [facility] [address] Work Phone: [phone] CO2 [Moles/Vol] 25 mmol/L 21 - [address] [facility] [address] Work Phone: [phone] Creatinine [Mass/Vol] 0.99 mg/dL See Below [address] [facility] [address] Work Phone: [phone] Comment on above: Reference Range: 0.5 0 - 1.30 Glucose [Mass/Vol] 115 mg/dL above high threshold 74 - [address] [facility] [address] Work Phone: [phone] Potassium [Moles/Vol] 4.3 mmol/L 3.5 - 5.[address] [facility] [address] Work Phone: [phone] Protein [Mass/Vol] 6.8 g/dL 6.4 - 8.[address] [facility] [address] Work Phone: [phone] Sodium [Moles/Vol] 138 mmol/L 136 - [address] [facility] [address] Work Phone: [phone] Urea nitrogen [Mass/Vol] 12 mg/dL 6 - [address] [facility] [address] Work Phone: [phone] Laboratory - Drug toxicology on 06-14-2021 Amphetamines Screen Ql (U) Negative NEGATIVE [address] [facility] [address] Work Phone: [phone] Comment on above: CUTOFF LEVEL: 500 NG [...] CUTOFF LEVEL: 150 NG /ML The metabolite Q-zudfw-zdfjavpbzxpxxz (LAAM) is not detected by this method [...] oxymorphone. Phencyclidine Ql (U) Negative NEGATIVE [address] [facility] [address] Work Phone: Comment on above: CUTOFF LEVEL: 25 NG/ ML Cross-reactivity has been reported with dextromethorphan. No Panel Informationon 06-14 SEE BELOW [address] [facility] [address] Work Phone: Comment on above: Drug screen results are presumptive and should not be used to assess compliance with prescribed medication. Contact the performing [facility] laboratory to add-on definitive confirmatory testing if [...] to the laboratory medical directors. >60 >60 [facility] [address] Work Phone: Comment on above: CALCULATIONS OF NIKOLE MATED GFR ARE PERFORMED USING THE MDRD STUDY EQUATION FOR THE IDMS-TRACEABLE CREATININE METHODS. CLIN CHEM 2007;53:766-72 Provider Note - ED v3on 05-25 Provider Note - ED v3 Provider Note: Chart Review: ED NOTES ED NOTES: Hosea Padilla is a 50 year old male who presents to [facility] ED for right chest pressure and [...] edema or pain. Pt came to the [facility] ED yesterday on 06/13 for similar [...] of mot (more content not included)... Normal [facility] Risk Screen - Adult Emergenc yon 06-14-2021 Risk Screen - Adult Emergency Preferred Language: Preferred Language: Preferred Language for Discussing Health Care (patient/designee)Fran carver Advanced Directives: Advance Directive/DNRno Family Violence Adult: Abuse Screen: Are you or have you been threatened or abused physically, emotionally, or sexually by anyoneno Learning Assessment (Patient): Learning Assessment (Patient): Patient is Able to be Assessed for Learningyes Factors Influencing Readiness to Learninterest in learning Factors that Impact Ability to Learnnone Devices/Methods Used to Communicatenone Learning Preferencesverbal instruction Cultural Considerationsnone Developmental Considerationsnone Mandaeism Considerationsnone Learning Assessment (Other Learner): Learning Assessment (Other Learner): Other learner availableno Pressure Injury/TB/Substance: Pressure Injury: Pressure Injury Present on Admissionno Do you have a coughno Smoking Statusnever smoker (1) Admission Risk Screen: Significant IndicatorsComplete CAGE: CAGE: Is this an injured patient at a Trauma Center ([place] [facility]): no Electronic Signatures: Tamika Messina (MANAS) (Signed 14-Jun-2021 07:37) Authored: Preferred Language, Advanced Directives, Family Violence Adult, Learning Assessment (Patient), Learning Assessment (Other Learner), Pressure Injury/TB/Substance, Pressure Injury, CAGE Last Updated: 14-Jun-2021 07:37 by Tamika Messina (MANAS) References: 1. Data Referenced From Risk Screen - Adult Emergency 13-Jun-2021 11:54 Normal [facility] SALICYLATEon 06-14-2021 SALICYLATE <3 Normal 4 - 20 [facility] Comment on above: Performed By: #### S ALIC ####[facility] [place], [place] [id number] TROPONIN Ion 06-14-2021 Troponin I.cardiac [Mass/Vol] ng/mL Normal 0.00 - 0.03 [facility] Comment on above: Result Comment: LESS [...] is performed using different testing methodology at [facility] than at [facility]. Direct result comparisons should only be made within the same method. Performed By: #### U A #### [facility] [address] [place], [place] [id number] TSHon 06-14-2021 TSH Qn 1.03 m[IU]/L Normal 0.44 - 3.98 [facility] Comment on above: Result Comment: TSH testing is performed using different testing methodology at [facility] than at [facility]. Direct result comparisons should only be made within the same method. Performed By: #### T SH2 ####[facility] [place], [place] [id number] TSH - Thyroid Stimulating Ho tiffany, Serumon 06-14-2021 TSH Qn 1.03 m[IU]/L See Below [address] [facility] [address] Work Phone: Comment on above: Reference Range: 0.4 4 - 3.98 TSH testing is performed using different testing methodology at [facility] than at other [facility]. Direct result comparisons should only be [...] BMI (kg/m2): 30.616 Calculated BSA (m2) 2.00 [place] Coma Scale: Best Eye Response: (E4) spontaneous [...] 14-Jun-2021 07:37 by Tamika Messina (MANAS) Normal [facility] Troponin I, Serumon 06-14-20 21 Troponin I.cardiac [...] is performed using different testing methodology at [facility] than at other [facility]. Direct result comparisons should only be made within the same method. URINALYSISon 06-14-2021 Appearance (U) CLEAR Normal CLEAR [facility] Comment on above: Performed By: #### U A ####[facility] [place], [place] [id number] Bilirubin Ql (U) Negative Normal NEGATIVE [facility] Comment on above: Performed By: #### U A ####[facility] [place], [place] [id number] Color (U) STRAW Normal STRAW,YELLOW [facility] Comment on above: Performed By: #### U A ####[facility] [facility], [place] [phone] Glucose Ql (U) Negative Normal NEGATIVE [facility] Comment on above: Performed By: #### U A ####[facility] [facility], [place] [phone] Hemoglobin Ql (U) Negative Normal NEGATIVE [facility] Comment on above: Performed By: #### U A ####[facility] [facility], [place] [phone] Ketones Ql (U) Negative Normal NEGATIVE [facility] Comment on above: Performed By: #### U A ####[facility] [facility], [place] [phone] Leukocyte esterase Test strip Ql (U) Negative Normal NEGATIVE [facility] Comment on above: Performed By: #### U A ####[facility] [facility], [place] [phone] Nitrite Ql (U) Negative Normal NEGATIVE [facility] Comment on above: Performed By: #### U A ####[facility] [facility], [place] [phone] pH (U) 5.0 [pH] Normal 5.0 - 8.0 [facility] Comment on above: Performed By: #### U A ####[facility] [facility], [place] [phone] Protein Ql (U) Negative Normal NEGATIVE [facility] Comment on above: Performed By: #### U A ####[facility] [facility], [place] [phone] Specific gravity (U) [Rel density] 1.003 Low 1.005 - 1.035 [facility] Comment on above: Performed By: #### U A ####[facility] [facility], [place] [phone] Urobilinogen (U) [Mass/Vol] mg/dL Normal 0.0 - 1.9 [facility] Comment on above: Performed By: #### U A ####[facility] [place], [place] [phone] Urinalysison 06-14-2021 Color (U) STRAW See Below [address] Work Phone: [phone] Comment on above: Reference Range: STR AW,YELLOW Glucose Ql (U) Negative NEGATIVE [address] [facility] [address] Work Phone: [phone] Ketones Ql (U) Negative NEGATIVE [facility] [facility] [address] Work Phone: [phone] Leukocyte esterase Test strip Ql (U) Negative NEGATIVE [address] [facility] [address] Work Phone: [phone] pH (U) 5.0 [pH] 5.0 - 8.[address] [facility] [address] [address] Work Phone: [phone] Protein (U) [Mass/Vol] Negative NEGATIVE [address] [facility] Work Phone: [phone] RBC (U) [#/Vol] Negative NEGATIVE [address] [facility] [address] Work Phone: [phone] Specific gravity (U) [Rel density] 1.003 1 below low threshold See Below [address] Work Phone: [phone] Comment on above: Reference Range: 1.0 05 - 1.035 Urinalysis Negative NEGATIVE [address] [facility] Work Phone: [phone] Comment on above: CUTOFF LEVEL: 1 NG/M L Urinalysis <2.0 0.0 - 1.[address] [facility] [address] Work Phone: [phone] Urinalysis CLEAR CLEAR [address] [facility] Work Phone: [phone] Discharge Planning [id number] 06-13-2021 Discharge Planning Note2 Discharge Planning: Anticipated Discharge [id number] Discharge Planning 06-13-21 1825 DAVID was asked by front lobby administrative secretary to come to the front lobby as someone was requesting to see SW - pt had already been d/c from the ED. DAVID is familiar with pt from previous ED visits in which pt has repeatedly needed redirection to appropriate resources for insurance, case management, appropriate medical treatment, etc. Pt has a hx of needing encouragement form security to leave [facility]. Pt has a hx of homelessness and PTSD, says he goes back and forth between [place] and [place]. Pt is well aware of area resources and knows how to access them. Pt began conversation by lamenting that records aren't easily shared between [facility] and . He named several people he has talked to about his concerns and then volunteered to this insurance underwriter sales that he does have a CM thru [facility], Adrianne Davis who has been making some appts for him. Pt was asked what he said needed help with today. He said he that he is trying to move an endoscopy appt from the to tomorrow. Pt said that he cannot make the appt on the because of matters he needs to take care of in [place], [place] regarding getting a stimulus check cashed. Pt said he has been trying to get thru to the appt line but has had no luck leaving messages - pt asked if this protective services social worker had any other options or people she knew to help him. DAVID researched endoscopy scheduling on the website and informed him that the [phone] is the only option for scheduling. Pt assented, declined to move [facility] around so he could make his 06/21 appt. Pt offered area in front lobby to charge his phone while making call. Pt did say he planned to leave the lobby by 1:15 pm. Tile Mechanic informed. Merissa Acevedo [facility] Assessment: Discharge Planning Assessment [id number] Electronic Signatures: Merissa Acevedo) (Signed 14-Jun-2021 10:47) Authored: Discharge Planning, Assessment Last Updated: 14-Jun-2021 10:47 by Merissa Acevedo) [facility] Provider Note - ED v2on 05-25 Provider [...] history of (more content not included)... Normal [facility] Risk Screen - Adult Emergenc yon 06-13-2021 Risk Screen - Adult Emergency Preferred Language: Preferred Language: Preferred Language for Discussing Health Care (patient/designee)Fran carver Advanced Directives: Advance Directive/DNRno Family Violence Adult: Abuse Screen: Are you or have you been threatened or abused physically, emotionally, or sexually by anyoneno Learning Assessment (Patient): Learning Assessment (Patient): Patient is Able to be Assessed for Learningyes Factors Influencing Readiness to Learninterest in learning Factors that Impact Ability to Learnnone Devices/Methods Used to Communicatenone Learning Preferencesverbal instruction Cultural Considerationsnone Developmental Considerationsnone Mandaeism Considerationsnone Learning Assessment (Other Learner): Learning Assessment (Other Learner): Other learner availableno Pressure Injury/TB/Substance: Pressure Injury: Pressure Injury Present on Admissionno Do you have a coughno Smoking Statusnever smoker Admission Risk Screen: Significant IndicatorsComplete CAGE: CAGE: Is this an injured patient at a Trauma Center ([place] [facility]/[place] /[place]): no Electronic Signatures: aKsey Campos ([place]) (Signed 13-Jun-2021 11:54) Authored: Preferred Language, Advanced Directives, Family Violence Adult, Learning Assessment (Patient), Learning Assessment (Other Learner), Pressure Injury/TB/Substance, Pressure Injury, CAGE Last Updated: 13-Jun-2021 11:54 by Kasey Campos ([place]OOK[place]NN) Normal [facility] Triage - EDon 06-13-2021 Triage - ED [...] of Arrival: ambulance Agency: City Agency Name: [facility] Arrival From: home CHIEF COMPLAINT HOSEA ALVAREZ [...] BMI (kg/m2): 30.616 Calculated BSA (m2) 2.00 [place] Coma Scale: Best Eye Response: (E4) spontaneous Best Motor Response: (M6) obeys commands Best Verbal Response: (V5) oriented Trona Score: 15 Allergies: yes Patient has homicidal [...] Past Medical History Reviewedyes Electronic Signatures: Kasey Campos) (Signed 13-Jun-2021 11:53) Authored: Quick Triage, Risk Screens, Pain, Arrival, ABCD, Immunizations, Travel History, Chart Review, Scores, Past Medical History Last Updated: 13-Jun-2021 11:53 by Kasey Campos) [facility] Laboratory - Chemistry and C hemistry - challengeon 06-12-2021 Bilirubin Ql (U) Bili NEGATIVE (NEG ) [employer] pH (U) Urine pH 5.0 (4.6-8.0 ) 4.6 - 8.0 L Specific gravity (U) [Rel density] Urine Sp [place] 1.009 (1.005-1.030 ) 1.005 - 1.030 [facility] Troponin T.cardiac [Mass/Vol] HS Troponin T,Gen [...] until 8 hours following last biotin administration. [employer] Urobilinogen Ql (U) Uro NORMAL MG/DL (0- 1.0 MG/DL) 0 - 1.0 MG/DL [facility] [employer] Anion gap [Moles/Vol] Anion Gap 14 MMOL/ L (0-19 MMOL/L) 0 - 19 MMOL/L [facility] [employer] Calcium [Mass/Vol] Calcium 8.7 MG/DL (8.5-10.4 MG/DL) 8.5 - 10.4 MG/DL [facility] Chloride [Moles/Vol] Chloride 103 MMOL/L (97-107 MMOL/L) 97 - 107 MMOL/L [employer] CO2 [Moles/Vol] Carbon Dioxide 19 MM OL/L L (24-31 MMOL/L) Low 24 - 31 MMOL/L [facility] Creatinine [Mass/Vol] Creatinine R 0.9 M G/DL (0.4-1.6 MG/DL) 0.4 - 1.6 MG/DL [facility] GFR/1.73 sq M.predicted MDRD (S/P/Bld) [Vol rate/Area] EGFR 95 mL/min/1.73 m2 (Reference Range: not available) GFR ml/min/1.73m2 Stage ----- 90 1 60-89 2 30-59 3 15-29 4 <15 5 For -Americans, multiply EGFR result by 1.210 Calculation not validated for patients under 18 years of age. Performed at [address] [address] [facility] Glucose [Mass/Vol] Glucose 89 MG/DL (65 -99 MG/DL) 65 - 99 MG/DL [facility] Potassium [Moles/Vol] Potassium R 4.2 MM OL/L (3.4-5.1 MMOL/L) 3.4 - 5.1 MMOL/L [facility] Sodium [Moles/Vol] Sodium 136 MMOL/L (133-145 MMOL/L) 133 - 145 MMOL/L [facility] Troponin T.cardiac [Mass/Vol] HS Troponin T,Gen [...] until 8 hours following last biotin administration. [facility] Urea nitrogen [Mass/Vol] BUN 17 MG/DL (8-25 MG/DL) 8 - 25 MG/DL [facility] Urea nitrogen/Creatinine [Mass ratio] BUN Creatinine Ratio 18.9 RATIO (8-21 RATIO) 8 - 21 RATIO [facility] Laboratory - Coagulationon 0 06-12-2021 Fibrin [...] IN PATIENTS RECEIVING ANTI-COAGULATION THERAPY. Performed at [address] [address] 0.19 - 0.50 MG/L FEU [facility] Laboratory - Hematology and Cell countson 06-12-2021 Hemoglobin Ql (U) Blood NEGATIVE (NEG ) [facility] Basophils (Bld) [#/Vol] Abs Baso 0.01 K/UL (0.00-0.22 K/UL) 0.00 - 0.22 K/UL [facility] Basophils/100 WBC (Bld) Basophil 0.30 % (0-1 %) 0 - 1 % [facility] Differential cell count method Nom (Bld) Diff Type AUTO DIFF (Reference Range: not available) [facility] Eosinophils (Bld) [#/Vol] Abs Eos 0.07 K/UL (0-0.45 K/UL) 0 - 0.45 K/UL S Eosinophils/100 WBC (Bld) Eosinophil 2.20 % (0-3 [...] 50 % S Hemoglobin (Bld) [Mass/Vol] HGB 13.0 GM/DL L (13.5-16.5 GM/DL) Low 13.5 - 16.5 GM/DL [facility] Immature granulocytes (Bld) [#/Vol] Abs Imm Neut 0.01 K/UL (0.0-0.1 K/UL) 0.0 - 0.1 K/UL S Lymphocytes (Bld) [#/Vol] Abs Lymph 0.83 K/UL L (1.2-3.2 K/UL) Low 1.2 - 3.2 K/UL [facility] Lymphocytes/100 WBC (Bld) Lymphocyte 26.10 % (20-40 %) 20 - 40 % S MCH (RBC) [Entitic mass] MCH 28.3 PG (26-34 PG) 26 - 34 PG S MCHC (RBC) [Mass/Vol] MCHC 33.1 % (31-37 %) 31 - 37 % S MCV (RBC) [Entitic vol] MCV 85.4 FL (80-100 FL) 80 - 100 FL S Monocytes (Bld) [#/Vol] Abs Wilbarger 0.32 K/UL (0-0.8 K/UL) 0 - 0.8 K/UL [facility] Monocytes/100 WBC (Bld) Monocyte 10.10 % H (0-8 %) High 0 - 8 % S Neutrophils (Bld) [#/Vol] Abs.Neut.Calculated 1.94 K/UL (Reference Range: not available) Performed at [address] [address] [facility] Neutrophils (Bld) [#/Vol] Abs Neut 1.94 K/UL (1.8-7.7 K/UL) 1.8 - 7.7 K/UL [facility] Neutrophils.immature/ 100 WBC (Bld) Immature Neut % 0.30 % (0.0-1.0 %) 0.0 - 1.0 % [facility] Nucleated RBC/100 WBC (Bld) [Ratio] NRBCs 0 /100 WBC (0 /100 WBC) [facility] Platelet mean volume (Bld) [Entitic vol] MPV 11.6 CU (7.0-12.6 CU) 7.0 - 12.6 CU [facility] Platelets (Bld) [#/Vol] PLT 144 K/UL L (150-450 K/UL) Low 150 - 450 K/UL [facility] RBC (Bld) [#/Vol] RBC 4.60 M/UL (4.5-5 .5 M/UL) 4.5 - 5.5 M/UL [facility] Segmented neutrophils/100 WBC (Bld) Granulocyte 61.00 % (50-70 %) 50 - 70 % [facility] WBC (Bld) [#/Vol] WBC 3.2 K/UL L (4.5- 11.0 K/UL) Low 4.5 - 11.0 K/UL [facility] Laboratory - Specimen inform ationon 06-12-2021 Clarity (U) Urine Clarity CLEAR (Reference Range: not available) [facility] Color (U) Urin color COLORLESS (Reference Range: not available) [facility] Laboratory - Urinalysison Bacteria Auto Ql (U) Bacteria NEGATIVE (Reference Range: not available) [facility] Epithelial cells.squamous Auto Ql (U) Urine squamous epi NONE SEEN /HPF (Reference Range: not available) [facility] Glucose Auto test strip (U) [Mass/Vol] Gluc NEGATIVE mg/dL (NEG mg/dL) [facility] Hemoglobin Auto test strip Ql (U) RBC NONE SEEN /HPF (0-3 /HPF) 0 - 3 /HPF [facility] Hyaline casts Auto Ql (U) Urine hyaline cast NONE SEEN /LPF (Reference Range: not available) [facility] Ketones Auto test strip Ql (U) Urine Ketone TRACE A (NEG ) Abnormal [facility] Leukocyte esterase Auto test strip Ql (U) Leuk NEGATIVE (NEG ) [facility] Nitrite Auto test strip Ql (U) Nit NEGATIVE (NEG ) [facility] Protein (U) [Mass/Vol] Prot NEGATIVE mg/dL (NEG mg/dL) [facility] WBC Auto (Urine sed) [#/Area] WBC NONE SEEN /HPF (0-3 /HPF) 0 - 3 /HPF [facility] No Panel Informationon 06-12 HS Troponin T Delta 0 (0-4 ) Performed at [address] [address] 0 - 4 [facility] Microscopic AUTOMATI C MICROSCOPIC URINES (Reference Range: not available) [facility] Reflex to Urine Cult ure CULTURE NOT INDICATED Performed at [address] [address] (Reference Range: not available) [facility] HS Troponin T Delta No previous result Performed at [address] [address] (0-4 ) 0 - 4 S BNPon 06-07-2021 Natriuretic peptide B (Bld) [Mass/Vol] 30 pg/mL Normal 0 - 99 [facility] Comment on above: Result Comment: . <1 00 pg/mL - Heart failure unlikely 100-299 pg/mL - Intermediate probability of acute heart . failure exacerbation. Correlate with clinical . context and patient history. >=300 pg/mL - Heart Failure likely. Correlate with clinical . context and patient history. BNP testing is performed using different testing methodology at [facility] than at [facility]. Direct result comparisons should only be made within the same method. Performed By: #### B NP2 #### [address] [address] CBC AND DIFFERENTIALon 06-07 % AUTOMATED IMMATURE GRAN 0.3 % Normal 0.0 - 0.9 [facility] Comment on above: Result Comment: Kath ture Granulocyte Count (IG) includes promyelocytes, myelocytes and metamyelocytes but does not include bands. Percent differential counts (%) should be interpreted in the context of the absolute cell counts (cells/L). Performed By: #### C BCDF #### [address] [address] Basophils (Bld) [#/Vol] 0.02 10*3/uL Normal 0.00 - 0.10 [facility] Comment on above: Performed By: #### C BCDF #### [address] [address] Eosinophils (Bld) [#/Vol] 0.09 10*3/uL Normal 0.00 - 0.70 [facility] Comment on above: Performed By: #### C BCDF #### [address] [address] Eosinophils/100 WBC (Bld) 2.7 % Normal 0.0 - 6.0 [facility] Comment on above: Performed By: #### C BCDF #### [facility] [address] [place] [address] Lymphocytes (Bld) [#/Vol] 0.78 10*3/uL Low 1.20 - 4.80 [facility] Comment on above: Performed By: #### C BCDF #### [address] [address] Monocytes (Bld) [#/Vol] 0.44 10*3/uL Normal 0.10 - 1.00 [facility] Comment on above: Performed By: #### C BCDF #### [address] [address] Neutrophils (Bld) [#/Vol] 1.99 10*3/uL Normal 1.20 - 7.70 [facility] Comment on above: Performed By: #### C BCDF #### [address] [address] RBC 4.89 x10E12/L Normal 4.50 - 5.90 [facility] Comment on above: Performed By: #### C BCDF #### [address] [address] CHEST 1 VIEWon 06-07-2021 CHEST 1 VIEW STUDY: Chest Radiograph; 06/07/2021 8:40AM INDICATION: Chest pain. COMPARISON: 06/02/2021 XR Chest. ACCESSION NUMBER(S): [id number] ORDERING CLINICIAN: GRUPO SOUSA DO TECHNIQUE: Frontal chest was obtained at 09:16 hours. FINDINGS: CARDIOMEDIASTINAL SILHOUETTE: The heart is enlarged. LUNGS: Lungs are clear. ABDOMEN: No remarkable upper abdominal findings. BONES: No acute osseous changes. IMPRESSION: Cardiomegaly. No acute cardiopulmonary abnormality. Signed by Karson White MD Electronically signed by: KARSON WHITE MD Normal [facility] COMPREHENSIVE PANELon 2020 Albumin [Mass/Vol] 4.3 g/dL Normal 3.4 - 5.0 [facility] Comment on above: Performed By: #### C MP #### [address] [address] ALP [Catalytic activity/Vol] 56 U/L 33 - [address] Work Phone: [phone] Comment on above: Performed By: #### C MP #### [address] [address] ALT [Catalytic activity/Vol] 26 U/L Normal 10 - 52 [facility] Comment on above: Result Comment: Yanni ents treated with Sulfasalazine may generate falsely decreased results for ALT. Performed By: #### C MP #### [address] [address] Anion gap [Moles/Vol] 12 mmol/L 10 - [address] Work Phone: [phone] Comment on above: Performed By: #### C MP #### [address] [address] AST [Catalytic activity/Vol] 20 U/L Normal 9 - 39 [facility] Comment on above: Performed By: #### C MP #### [address] [address] Bilirubin [Mass/Vol] 0.4 mg/dL 0.0 - 1.[address] Work Phone: [phone] Comment on above: Performed By: #### C MP #### [address] [address] Calcium [Mass/Vol] 9.4 mg/dL 8.6 - 10.[address] Work Phone: [phone] Comment on above: Performed By: #### C MP #### [address] [address] Chloride [Moles/Vol] 101 mmol/L 98 - [address] Work Phone: [phone] Comment on above: Performed By: #### C MP #### [address] [address] Creatinine [Mass/Vol] 0.97 mg/dL See Below [address] Work Phone: Comment on above: Reference Range: 0.5 0 - 1.30 Performed By: #### C MP #### [address] [address] GFR- AM. >60 Normal >60 [facility] Comment on above: Result Comment: CALC ULATIONS OF ESTIMATED GFR ARE PERFORMED USING THE MDRD STUDY EQUATION FOR THE IDMS-TRACEABLE CREATININE METHODS. CLIN CHEM 2007;53:766-72 Performed By: #### C MP #### [address] [address] GFR-NON AM. >60 Normal >60 [facility] Comment on above: Performed By: #### C MP #### [address] [address] Glucose [Mass/Vol] 103 mg/dL above high threshold 74 - [address] Work Phone: Comment on above: Performed By: #### C MP #### [address] [address] HCO3 (Bld) [Moles/Vol] 26 mmol/L Normal 21 - 32 [facility] Comment on above: Performed By: #### C MP #### [address] [address] Potassium [Moles/Vol] 4.0 mmol/L 3.5 - 5.[address] Work Phone: Comment on above: Performed By: #### C MP #### [address] [address] Protein [Mass/Vol] 7.5 g/dL 6.4 - 8.[address] Work Phone: Comment on above: Performed By: #### C MP #### [address] [address] Sodium [Moles/Vol] 135 mmol/L below low threshold 136 - [address] Work Phone: Comment on above: Performed By: #### C MP #### [place] [address] Urea nitrogen [Mass/Vol] 21 mg/dL 6 - [address] Work Phone: Comment on above: Performed By: #### C MP #### [place] [address] CORONAVIRUS 2019 BY PCRon SARS-CoV-2 (COVID-19) RNA TATI+probe Ql (Unsp spec) Not detected Normal Not Detected [facility] Comment on above: Result Comment: . This test has received [facility] Emergency Use Authorization (EUA) and has been verified by [facility]. This test is only authorized for the duration of time that circumstances exist to justify the authorization of the emergency use of in vitro diagnostic tests for the detection of SARS-CoV-2 virus and/or diagnosis of COVID-19 infection under section 564(b)(1) of the Act, 21 U.S.C. 360bbb-3(b)(1), unless the authorization is terminated or revoked sooner. [facility] is certified under CLIA-88 as qualified to perform high complexity testing. Testing is performed in the [facility] laboratory located at [address] [place] [address]. SARS-CoV-2/Flu/RSV Multiplex Test: Fact sheet for providers: https://www.fda.gov/media/572393/download Fact sheet for patients: https://www.fda.gov/media/239911/download Performed By: #### C OV19 #### [place] [address] Lab Specimen Source Nasal, Nasopharyngeal Normal [facility] Comment on above: Performed By: #### C OV19 #### [place] [address] Complete Blood Count + Diffe rentialon 06-07-2021 Basophils/100 WBC (Bld) 0.6 % 0.0 - 2.[address] Work Phone: Comment on above: Performed By: #### C BCDF #### [address] [address] Erythrocyte distribution width (RBC) [Ratio] 13.1 % See Below [address] Work Phone: [phone] Comment on above: Reference Range: 11. 5 - 14.5 Performed By: #### C BCDF #### [address] [address] Hematocrit (Bld) [Volume fraction] 40.8 % below low threshold See Below [address] Work Phone: [phone] Comment on above: Reference Range: 41. 0 - 52.0 Performed By: #### C BCDF #### [address] [address] Hemoglobin (Bld) [Mass/Vol] 14.0 g/dL See Below [address] Work Phone: [phone] Comment on above: Reference Range: 13. 5 - 17.5 Performed By: #### C BCDF #### [address] [address] Lymphocytes/100 WBC (Bld) 23.4 % See Below [address] Work Phone: [phone] Comment on above: Reference Range: 13. 0 - 44.0 Performed By: #### C BCDF #### [address] [address] MCHC (RBC) [Mass/Vol] 34.3 g/dL See Below [address] Work Phone: [phone] Comment on above: Reference Range: 32. 0 - 36.0 Performed By: #### C BCDF #### [address] [address] MCV (RBC) [Entitic vol] 83 fL 80 - [address] Work Phone: [phone] Comment on above: Performed By: #### C BCDF #### [address] [address] Monocytes/100 WBC (Bld) 13.2 % 2.0 - 10.[address] Work Phone: [phone] Comment on above: Performed By: #### C BCDF #### [address] [address] Neutrophils/100 WBC (Bld) 59.8 % See Below [address] Work Phone: [phone] Comment on above: Reference Range: 40. 0 - 80.0 Performed By: #### C BCDF #### [address] [address] Platelets (Bld) [#/Vol] 148 10*3/uL below low threshold 150 - [address] Work Phone: [phone] Comment on above: Performed By: #### C BCDF #### [address] [address] WBC (Bld) [#/Vol] 3.3 10*3/uL below low threshold 4.4 - 11.[address] Work Phone: [phone] Comment on above: Performed By: #### C BCDF #### [address] [address] RBC (Bld) [#/Vol] 4.89 {x10E12/L} See Below [...] [address] Work Phone: [phone] Comment on above: Reference Range: 0.1 [...] Authorization (EUA) and has been verified by [facility]. This test is only authorized for the duration of time that circumstances exist to justify the authorization of the emergency use of in vitro diagnostic tests for the detection of SARS-CoV-2 virus and/or diagnosis of COVID-19 infection under section 564(b)(1) of the Act, 21 U.S.C. 360bbb-3(b)(1), unless the authorization is terminated or revoked sooner. [facility] is certified under CLIA-88 as qualified to perform high complexity testing. Testing is performed in the [facility] laboratory located at [address] [place] [address].SARS-CoV-2/Flu/RSV Multiplex Test: Fact sheet for providers: https://www.fda.gov/media/468579/downloadFact sheet for patients: https://www.fda.gov/media/390043/download Covid 19 Resultson SARS-CoV-2 (COVID-19) RNA TATI+probe [...] You may also be contacted by the [facility] to see if any of your close [...] or Naproxen (Aleve) can also be used. Cbey-vkz-gdplaal cough and cold medicines can be used according to the instructions on the package. Some ascv-rhd-kwyvvdo medicines also contain acetaminophen. 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 Avoid touching your eyes, nose, and mouth [...] 24 guerline (more content not included)... Normal [facility] Laboratory - Chemistry and C hemistry - challengeon 06-07-2021 Albumin BCP dye [Mass/Vol] 4.3 g/dL 3.4 - 5.[address] Work Phone: ALT With P-5'-P [Catalytic activity/Vol] 26 U/L 10 - [address] Work Phone: Comment on above: Patients treated wit h Sulfasalazine may generate falsely decreased results for ALT. AST With P-5'-P [Catalytic activity/Vol] 20 U/L 9 - [address] Work Phone: CO2 [Moles/Vol] 26 mmol/L 21 - [address] Work Phone: [phone] Laboratory - Coagulationon 0 06-07-2021 INR Coag (PPP) [Relative time] 0.9 {INR} 0.9 - 1.[address] Work Phone: PT Coag (PPP) [Time] 11.0 s See Below [address] Work Phone: Comment on above: Reference Range: 10. 1 - 13.3 Magnesium, Serumon Magnesium [Mass/Vol] 2.06 mg/dL See Below [address] Work Phone: Comment on above: Reference Range: 1.6 0 - 2.40 Performed By: #### M G #### [address] [address] No Panel Informationon 06-07 30 pg/mL 0 - [address] Work Phone: Comment on above: . <100 pg/mL - Heart failure [id number] pg/mL - Intermediate probability of acute heart. failure exacerbation. Correlate with clinical. context and patient history. >=300 pg/mL - Heart Failure likely. Correlate with clinical. context and patient history.BNP testing is performed using different testing methodology at [facility] than at other [facility]. Direct result comparisons should only be made within the same method. >60 >[address] Work Phone: Comment on above: CALCULATIONS OF NIKOLE MATED GFR ARE PERFORMED USING THE MDRD STUDY EQUATION FOR THE IDMS-TRACEABLE CREATININE METHODS. CLIN CHEM 2007;53:766-72 PT/INRon 06-07-2021 PT Coag (PPP) [Time] 11.0 s Normal 10.1 - 13.3 [facility] Comment on above: Performed By: #### P TINR #### [address] [address] PT, INR 0.9 Normal 0.9 - 1.1 [facility] Comment on above: Performed By: #### P TINR #### [address] [address] Provider Note - ED v3on 05-24 Provider [...] similar episodes and was recently seen at [facility] where his work-up was grossly negative. He [...] he says he has a home in [place] and that he has been using his [...] GASTROINTESTINAL: Abdomen (more content not included)... Normal [facility] Radiologyon 06-07-2021 XR Chest Single view Normal [address] Work Phone: Risk Screen - Adult Emergenc yon 06-07-2021 Risk Screen - Adult Emergency Preferred Language: Preferred Language: Preferred Language for Discussing Health Care (patient/designee)Fran carver Advanced Directives: Advance Directive/DNRno Family Violence Adult: Abuse Screen: Are you or have you been threatened or abused physically, emotionally, or sexually by anyoneno Learning Assessment (Patient): Learning Assessment (Patient): Patient is Able to be Assessed for Learningyes Factors Influencing Readiness to Learnpain Factors that Impact Ability to Learnnone Devices/Methods Used to Communicatenone Learning Preferencesverbal instruction Cultural Considerationsnone Developmental Considerationsnone Mandaeism Considerationsnone Learning Assessment (Other Learner): Learning Assessment [...] an injured patient at a Trauma Center ([facility]/[place]): no Electronic Signatures: Nelly Reagan ([place]NN) (Signed 07-Jun-2021 09:12) Authored: Preferred Language, Advanced Directives, Family Violence Adult, Learning Assessment (Patient), Learning Assessment (Other Learner), Pressure Injury/TB/Substance, Pressure Injury, CAGE Last Updated: 07-Jun-2021 09:12 by Nelly Reagan (BROOK[place]NN) Normal [facility] TROPONIN Ion 06-07-2021 Troponin I.cardiac [Mass/Vol] ng/mL Normal 0.00 - 0.03 [facility] Comment on above: Result Comment: LESS [...] is performed using different testing methodology at [facility] than at other [facility]. Direct result comparisons should only be made within the same method. Performed By: #### C [facility] #### [address] [address] Troponin I.cardiac [Mass/Vol] ng/mL Normal 0.00 - 0.03 [facility] Comment on above: Result Comment: LESS [...] is performed using different testing methodology at [facility] than at other [facility]. Direct result comparisons should only be made within the same method. Performed By: #### T ROP2 #### [facility] [address] [place] [address] Triage - EDon 06-07-2021 Triage - ED Chart Review: PRIMARY ASSESSMENT ABCD Normal Findings: airway open and patent, breathing normal, circulation normal and alert and oriented ARRIVAL INFORMATION Means of Arrival: stretcher Mode of Arrival: ambulance Agency: City Agency Name: d Arrival From: scene of injury Accompanied By: [...] BMI (kg/m2): 29.904 Calculated BSA (m2) 1.98 [place]ron[place] Coma Scale: Best Eye Response: (E4) spontaneous [...] 07-Jun-2021 08:53 by Kika Montesinos (EMT-P) Normal [facility] Troponin I, Serumon 06-07-20 21 Troponin I.cardiac [...] is performed using different testing methodology at [facility] than at other [facility]. Direct result comparisons should only be [...] then post processed by myself on the [employer] workstation, with reconstructed 3D volume rendered and [...] by: NUBIA SEGAL MD Date: 06/04/2021 23:09 [facility] Comment on above: Order Comment: CONTR [...] then post processed by myself on the [employer] workstation, with reconstructed 3D volume rendered and [...] by: NUBIA SEGAL MD Date: 06/04/2021 23:09 [facility] Comment on above: Order Comment: CONTR AST PER RADIOLOGIST DISCRETION, r/o dissection ED NOTEon 06-04-2021 ED NOTE HNO ID: [id number] Author: Yang Solomon RN Service: Emergency Medicine Author Type: Registered Nurse Type: ED Notes Filed: 06/04/2021 3:11 PM Note Text: Patient states pain in between shoulders starting about 1400 after eating sausage. Patient thinks its his aorta. Normal [facility] ED PROV NOTEon 06-04-2021 ED PROV NOTE HNO ID: [id number] Author: Marti Rebollar MD Service: Emergency Medicine [...] medicine care in multiple different ED's throughout [place], [place], and [place]. [facility] states that patient recently broke into their fire station earlier this week. He showed up again today to their fire station and therefore police were called on scene. Please cleared him and patient left the fire house. He then decided to walk to [place] and called [facility] from there. He reports right sided [...] care, patient states he currently lives in [place], [place] however is currently in the area [place]. [place] primary care doctor [place]. [...] - Caffeine Rash Other reaction(s): Shakiness - [place] GI Upset, Rash, Vomiting Statused by Person: ?Imelda Meza.(T Desino2) on Statused by Person: ?SRAVANTHI MONGE([facility]) on Statused by Person: ?Imelda Meza.(T Desino2) on Statused by Person: ?SRAVANTHI MONGE([facility]) on - Amoxicillin GI Upset - Chocolate Flavor GI Upset - Ciprofloxacin Other: See Comments - Diazepam Unknown - Fentanyl Mental Status Change - Lorazepam GI Upset Other reaction(s): Abdominal Pain - Seasonal Allergies GI Upset Abdominal pain Abdominal pain - Serotonin Hcl Mental Status Change Other reaction(s): 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 Performed By: #### C MP ####[facility] [id number] [place] [address] Anion gap [Moles/Vol] 12 mmol/L Normal 10 - 20 [facility] Comment on above: Performed By: #### C MP ####[facility] [id number] [place] [address] AST [Catalytic activity/Vol] 20 U/L Normal 9 - 39 [facility] Comment on above: Performed By: #### C MP ####[facility] [id number] [place] [address] Bilirubin [Mass/Vol] 0.5 mg/dL Normal 0.0 - 1.2 [facility] Comment on above: Performed By: #### C MP ####[facility] [id number] [place] [address] Calcium [Mass/Vol] 9.4 mg/dL Normal 8.6 - 10.3 [facility] Comment on above: Performed By: #### C MP ####[facility] [id number] [place] [address] Chloride [Moles/Vol] 101 mmol/L Normal 98 - 107 [facility] Comment on above: Performed By: #### C MP ####[facility] [id number] [place] [address] Creatinine [Mass/Vol] 0.97 mg/dL Normal 0.50 - 1.30 [facility] Comment on above: Performed By: #### C MP ####[facility] [id number] [place] [address] GFR- AM. >60 Normal >60 [facility] Comment on above: Result Comment: CALC ULATIONS OF ESTIMATED GFR ARE PERFORMED USING THE MDRD STUDY EQUATION FOR THE IDMS-TRACEABLE CREATININE METHODS. CLIN CHEM 2007;53:766-72 Performed By: #### C MP ####[facility] [id number] [place] [address] GFR-NON AM. >60 Normal >60 [facility] Comment on above: Performed By: #### C MP ####[facility] [id number] [place] [address] Glucose [Mass/Vol] 93 mg/dL Normal 74 - 99 [facility] Comment on above: Performed By: #### C MP ####[facility] [place] [address] HCO3 (Bld) [Moles/Vol] 27 mmol/L Normal 21 - 32 [facility] Comment on above: Performed By: #### C MP ####[facility] [place] [address] Potassium [Moles/Vol] 4.4 mmol/L Normal 3.5 - 5.3 [facility] Comment on above: Performed By: #### C MP ####[facility] [place] [address] Protein [Mass/Vol] 7.1 g/dL Normal 6.4 - 8.2 [facility] Comment on above: Performed By: #### C MP ####[facility] [id number] [place] [address] Sodium [Moles/Vol] 136 mmol/L Normal 136 - 145 [facility] Comment on above: Performed By: #### C MP ####[facility] [place] [address] Urea nitrogen [Mass/Vol] 12 mg/dL Normal 6 - 23 [facility] Comment on above: Performed By: #### C MP ####[facility] [place] [address] HIV 1/2 ANTIGEN/ANTIBODY SCR EEN WITH REFLEX TO CONFIRMATIONon 06-03-2021 HIV 1/2 AG/AB SCREEN Non-Reactive Normal NONREACTIVE [facility] Comment on above: Result Comment: HIV Ag/Ab screen is performed using the Siemens BioStable HIV Ag/Ab Combo assay which detects the presence of HIV p24 antigen as well as antibodies to HIV-1 (Group M and O) and HIV-2. . No laboratory evidence of HIV infection. If acute HIV infection is suspected, consider testing for HIV RNA by PCR (viral load). Performed By: #### H IV ####[id number] [place] [address] MAGNESIUMon 06-03-2021 Magnesium [Mass/Vol] 2.00 mg/dL Normal 1.60 - 2.40 [facility] Comment on above: Performed By: #### M G ####[facility] [id number] [place] [address] PHOSPHORUSon 06-03-2021 Phosphate [Mass/Vol] 4.6 mg/dL Normal 2.5 - 4.9 [facility] Comment on above: Result Comment: The performance characteristics of phosphorus testing in heparinized plasma have been validated by the individual laboratory site where testing is performed. Testing on heparinized plasma is not approved by the FDA; however, such approval is not necessary. Performed By: #### P HOS ####[facility] [id number] [place] [address] Provider Note - ED v3on 05-24 Provider [...] and has been struggling to see a egg sorter. Pt states that he has been seen [...] up and was given information for a shoe polisher. He does have a phone and is [...] and evaluated the patient. Patient and/or patient district representative counseled regarding contents of Hospital Course / Medical Decisio (more content not included)... Normal [facility] ALLIED HEALTHon 06-02-2021 ALLIED HEALTH HNO ID: [id number] Author: Iain Brice Service: Radiology Author Type: Stick Puller Type: Allied Health Filed: 06/02/2021 2:59 PM [...] [facility] ALLIED HEALTH HNO ID: [id number] Author: Iain Brice Service: Radiology Author Type: Stick Puller Type: Allied Health Filed: 06/02/2021 2:48 PM [...] Anion gap [Moles/Vol] 11 mmol/L Normal 8-16 [facility] Comment on above: Order Comment: Speci men Type: BLOOD SPECIMEN Performed By: #### 2 4321-2 ####[facility] LABCLIA [id number] [place] [address] [place] [facility] Calcium [Mass/Vol] 8.6 mg/dL Normal 8.5-10.1 [facility] Comment on above: Order Comment: Speci men Type: BLOOD SPECIMEN Performed By: #### 2 4321-2 ####[facility] LABCLIA [id number] [place] [address] [place] Chloride [Moles/Vol] 102 mmol/L Normal 98-107 [facility] Comment on above: Order Comment: Speci men Type: BLOOD SPECIMEN Performed By: #### 2 4321-2 ####[facility] LABCLIA [id number] [address] OF [facility] CO2 [Moles/Vol] 26 mmol/L Normal 21-32 [facility] Comment on above: Order Comment: Speci men Type: BLOOD SPECIMEN Performed By: #### 2 4321-2 ####[facility] LABCLIA [id number] [address] [facility] Creatinine [Mass/Vol] 0.82 mg/dL Normal 0.67-1.17 [facility] Comment on above: Order Comment: Speci men Type: BLOOD SPECIMEN Performed By: #### 2 4321-2 ####[facility] LABCLIA [id number] [address] [place] GFR/1.73 sq M.predicted among blacks MDRD (S/P/Bld) [Vol rate/Area] mL/min/{1.73_m2} [facility] Comment on above: Order Comment: Speci men Type: BLOOD SPECIMEN Performed By: #### 2 4321-2 ####[facility] LABCLIA [id number] [address] GFR/1.73 sq M.predicted among non-blacks MDRD (S/P/Bld) [Vol rate/Area] mL/min/{1.73_m2} [facility] Comment on above: Order Comment: [...] actual GFR. Performed By: #### 2 4321-2 ####[facility] LABCLIA [id number] [place] [address] [place] [facility] Glucose [Mass/Vol] 81 mg/dL Normal 70-99 [facility] Comment on above: Order Comment: Speci men Type: BLOOD SPECIMEN Result Comment: The [place] Diabetes Association (ADA) provides guidance for cutoff [...] Standards of Medical Care in Diabetes 2016, [place] Diabetes Association. Diabetes Care. 2016.39(Suppl 1). Performed By: #### 2 4321-2 ####[facility] LABCLIA [id number] [address] Potassium [Moles/Vol] 3.7 mmol/L Normal 3.5-5.1 [facility] Comment on above: Order Comment: Speci men Type: BLOOD SPECIMEN Performed By: #### 2 4321-2 ####[facility] LABCLIA [id number] [address] [facility] Sodium [Moles/Vol] 139 mmol/L Normal 136-145 [facility] Comment on above: Order Comment: Speci men Type: BLOOD SPECIMEN Performed By: #### 2 4321-2 ####[facility] LABCLIA [id number] [address] [place] Urea nitrogen [Mass/Vol] 10 mg/dL Normal 7-18 [facility] Comment on above: Order Comment: Speci men Type: BLOOD SPECIMEN Performed By: #### 2 4321-2 ####[facility] LABCLIA [id number] [place] [address] [place] CBC AND DIFFERENTIALon 06-02 % AUTOMATED IMMATURE GRAN 0.6 % Normal 0.0 - 0.9 [facility] Comment on above: Result Comment: Kath ture Granulocyte Count (IG) includes promyelocytes, myelocytes and metamyelocytes but does not include bands. Percent differential counts (%) should be interpreted in the context of the absolute cell counts (cells/L). Performed By: #### C BCDF ####[facility] [place] [id number] Basophils (Bld) [#/Vol] 0.03 10*3/uL Normal 0.00 - 0.10 [facility] Comment on above: Performed By: #### C BCDF ####[facility] [place] [address] Basophils/100 WBC (Bld) 0.8 % Normal 0.0 - 2.0 [facility] Comment on above: Performed By: #### C BCDF ####[place] [id number] [place] [address] Eosinophils (Bld) [#/Vol] 0.08 10*3/uL Normal 0.00 - 0.70 [facility] Comment on above: Performed By: #### C BCDF ####[facility] [place] [address] Eosinophils/100 WBC (Bld) 2.2 % Normal 0.0 - 6.0 [facility] Comment on above: Performed By: #### C BCDF ####[facility] [place] [address] Erythrocyte distribution width (RBC) [Ratio] 13.0 % Normal 11.5 - 14.5 [facility] Comment on above: Performed By: #### C BCDF ####[facility] [place] [address] Hematocrit (Bld) [Volume fraction] 40.8 % Low 41.0 - 52.0 [facility] Comment on above: Performed By: #### C BCDF ####[facility] [place] [address] Hemoglobin (Bld) [Mass/Vol] 13.1 g/dL Low 13.5 - 17.5 [facility] Comment on above: Performed By: #### C BCDF ####[facility] [place] [address] Lymphocytes (Bld) [#/Vol] 0.97 10*3/uL Low 1.20 - 4.80 [facility] Comment on above: Performed By: #### C BCDF ####[facility] [place] [address] Lymphocytes/100 WBC (Bld) 26.8 % Normal 13.0 - 44.0 [facility] Comment on above: Performed By: #### C BCDF ####[facility] [place] [address] MCHC (RBC) [Mass/Vol] 32.1 g/dL Normal 32.0 - 36.0 [facility] Comment on above: Performed By: #### C BCDF ####[facility] [place] [address] MCV (RBC) [Entitic vol] 85 fL Normal 80 - 100 [facility] Comment on above: Performed By: #### C BCDF ####[facility] [place] [address] Monocytes (Bld) [#/Vol] 0.36 10*3/uL Normal 0.10 - 1.00 [facility] Comment on above: Performed By: #### C BCDF ####[facility] [place] [address] Monocytes/100 WBC (Bld) 9.9 % Normal 2.0 - 10.0 [facility] Comment on above: Performed By: #### C BCDF ####[facility] [place] [address] Neutrophils (Bld) [#/Vol] 2.16 10*3/uL Normal 1.20 - 7.70 [facility] Comment on above: Performed By: #### C BCDF ####[facility] [place] [address] Neutrophils/100 WBC (Bld) 59.7 % Normal 40.0 - 80.0 [facility] Comment on above: Performed By: #### C BCDF ####[facility] [id number] [place] [address] Platelets (Bld) [#/Vol] 152 10*3/uL Normal 150 - 450 [facility] Comment on above: Performed By: #### C BCDF ####[facility] [id number] [place] [address] RBC 4.78 x10E12/L Normal 4.50 - 5.90 [facility] Comment on above: Performed By: #### C BCDF ####[facility] [id number] [place] [address] WBC (Bld) [#/Vol] 3.6 10*3/uL Low 4.4 - 11.3 [facility] Comment on above: Performed By: #### C BCDF ####[facility] [id number] [place] [address] CBC W Auto Differential pane l (Bld)on 06-02-2021 Basophils (Bld) [#/Vol] 10*3/uL Normal <0.11 [facility] Comment on above: Order Comment: Speci men Type: BLOOD SPECIMEN Performed By: #### 5 7021-8 #### [facility] CLIA [id number] [address] [place] [address] [place] Basophils/100 WBC (Bld) 0.4 % Normal [facility] Comment on above: Order Comment: Speci men Type: BLOOD SPECIMEN Performed By: #### 5 7021-8 #### [facility] CLIA [id number] [address] [place] [address] [place] [facility] Differential cell count method Nom (Bld) Auto Normal [facility] Comment on above: Order Comment: Speci men Type: BLOOD SPECIMEN Performed By: #### 5 7021-8 #### [facility] CLIA [id number] [address] [place] [address] [place] Eosinophils (Bld) [#/Vol] 0.09 10*3/uL Normal <0.46 [facility] Comment on above: Order Comment: Speci men Type: BLOOD SPECIMEN Performed By: #### 5 7021-8 #### [facility] [place] [facility] CLIA [id number] [address] [place] [address] Eosinophils/100 WBC (Bld) 3.2 % Normal [facility] Comment on above: Order Comment: Speci men Type: BLOOD SPECIMEN Performed By: #### 5 7021-8 #### [facility] [place] [facility] CLIA [id number] [address] [place] [address] Erythrocyte distribution width (RBC) [Ratio] 12.6 % Normal 11.5-15.0 [facility] Comment on above: Order Comment: Speci men Type: BLOOD SPECIMEN Performed By: #### 5 7021-8 #### [facility] [place] [facility] CLIA [id number] [address] [place] [address] Hematocrit (Bld) [Volume fraction] 34.0 % Low 39.0-51.0 [facility] Comment on above: Order Comment: Speci men Type: BLOOD SPECIMEN Performed By: #### 5 7021-8 #### [facility] [place] [facility] CLIA [id number] [address] [place] [address] [place] Hemoglobin (Bld) [Mass/Vol] 11.3 g/dL Low 13.0-17.0 [facility] Comment on above: Order Comment: Speci men Type: BLOOD SPECIMEN Performed By: #### 5 7021-8 #### [facility] [place] [facility] CLIA [id number] [address] [place] [address] [place] Lymphocytes (Bld) [#/Vol] 0.83 10*3/uL Low 1.00-4.00 [facility] Comment on above: Order Comment: Speci men Type: BLOOD SPECIMEN Performed By: #### 5 7021-8 #### [facility] [place] [facility] CLIA [id number] [address] [place] [address] Lymphocytes/100 WBC (Bld) 29.1 % Normal [facility] Comment on above: Order Comment: Speci men Type: BLOOD SPECIMEN Performed By: #### 5 7021-8 #### [facility] [place] [facility] CLIA [id number] [address] [place] [address] MCH (RBC) [Entitic mass] 28.6 pg Normal 26.0-34.0 [facility] Comment on above: Order Comment: Speci men Type: BLOOD SPECIMEN Performed By: #### 5 7021-8 #### [facility] [place] [facility] CLIA [id number] [address] [place] [address] MCHC (RBC) [Mass/Vol] 33.2 g/dL Normal 30.5-36.0 [facility] Comment on above: Order Comment: Speci men Type: BLOOD SPECIMEN Performed By: #### 5 7021-8 #### [facility] [place] [facility] CLIA [id number] [address] [place] [address] MCV (RBC) [Entitic vol] 86.1 fL Normal 80.0-100.0 [facility] Comment on above: Order Comment: Speci men Type: BLOOD SPECIMEN Performed By: #### 5 7021-8 #### [facility] [place] [facility] CLIA [id number] [address] [place] [address] Monocytes (Bld) [#/Vol] 0.27 10*3/uL Normal <0.87 [facility] Comment on above: Order Comment: Speci men Type: BLOOD SPECIMEN Performed By: #### 5 7021-8 #### [facility] [place] [facility] CLIA [id number] [address] [place] [address] Monocytes/100 WBC (Bld) 9.5 % Normal [facility] Comment on above: Order Comment: Speci men Type: BLOOD SPECIMEN Performed By: #### 5 7021-8 #### [facility] [place] [facility] CLIA [id number] [address] [place] [address] [place] Neutrophils (Bld) [#/Vol] 1.65 10*3/uL Normal 1.45-7.50 [facility] Comment on above: Order Comment: Speci men Type: BLOOD SPECIMEN Performed By: #### 5 7021-8 #### [facility] [place] [facility] CLIA [id number] [facility] [place] [address] [facility] Neutrophils/100 WBC (Bld) 57.8 % Normal [facility] Comment on above: Order Comment: Speci men Type: BLOOD SPECIMEN Performed By: #### 5 7021-8 #### [facility] [place] [facility] CLIA [id number] [address] [place] [address] [place] Platelet mean volume (Bld) [Entitic vol] 11.0 fL Normal 9.0-12.7 [facility] Comment on above: Order Comment: Speci men Type: BLOOD SPECIMEN Performed By: #### 5 7021-8 #### [facility] CLIA [id number] [address] [place] [address] [place] Platelets (Bld) [#/Vol] 124 10*3/uL Low 150-400 [facility] Comment on above: Order Comment: Speci men Type: BLOOD SPECIMEN Performed By: #### 5 7021-8 #### [facility] CLIA [id number] [address] [place] [address] [place] RBC (Bld) [#/Vol] 3.95 10*6/uL Low 4.20-6.00 [facility] Comment on above: Order Comment: Speci men Type: BLOOD SPECIMEN Performed By: #### 5 7021-8 #### [facility] [place] [facility] CLIA [id number] [address] [place] [address] [place] WBC (Bld) [#/Vol] 2.85 10*3/uL Low 3.70-11.00 [facility] Comment on above: Order Comment: Speci men Type: BLOOD SPECIMEN Performed By: #### 5 7021-8 #### [facility] [place] [facility] CLIA [id number] [address] STATES OF [facility] CHEST 1 VIEWon 06-02-2021 CHEST 1 VIEW Patient Name: HOSEA ALVAREZ STUDY: CHEST 1 VIEW; 06/02/2021 9:05 pm INDICATION: right shoulder pain. COMPARISON: Chest x-ray 05/31/2021 ACCESSION NUMBER(S): [id number] ORDERING CLINICIAN: MAHSA FORD FINDINGS: CARDIOMEDIASTINAL SILHOUETTE: Cardiomediastinal silhouette is mildly enlarged but stable. Mild unfolding of the descending thoracic aorta. LUNGS: No consolidation, pleural effusion or pneumothorax. ABDOMEN: No remarkable upper abdominal findings. BONES: Multilevel degenerative changes of the spine. IMPRESSION: No acute cardiopulmonary process. Electronically signed by: BHARGAV MOJICA MD [place] Complete Blood Count + Diffe rentialon 06-02-2021 Basophils/100 WBC (Bld) 0.8 % 0.0 [...] [address] Work Phone: [phone] Monocytes/100 WBC (Bld) 9.9 % 2.0 - 10.[address] Work Phone: [phone] Neutrophils/100 WBC (Bld) 59.7 % See Below [address] Work Phone: [phone] Comment on above: Reference Range: 40. 0 - 80.0 Platelets (Bld) [#/Vol] 152 10*3/uL 150 - [address] Work Phone: [phone] RBC (Bld) [#/Vol] 4.78 {x10E12/L} See Below [address] Work Phone: [phone] Comment on above: Reference Range: 4.5 0 - 5.90 WBC (Bld) [#/Vol] 3.6 10*3/uL below low threshold 4.4 - 11.[address] Work Phone: [phone] Complete Blood Count + Differential 0.03 {x10E9/L} See Below [address] Work Phone: [phone] Comment on above: Reference Range: 0.0 0 - 0.10 Complete Blood Count + Differential 0.08 {x10E9/L} See Below [address] Work Phone: [phone] Comment on above: Reference Range: 0.0 0 - 0.70 Complete Blood Count + Differential 0.36 {x10E9/L} See Below [address] Work Phone: [phone] Comment on above: Reference Range: 0.1 0 - 1.00 Complete Blood Count + Differential 0.97 {x10E9/L} below low threshold See Below [address] Work Phone: [phone] Comment on above: Reference Range: 1.2 0 - 4.80 Complete Blood Count + Differential 2.16 {x10E9/L} See Below [address] Work Phone: [phone] Comment on above: Reference Range: 1.2 [...] ED NOTEon 06-02-2021 ED NOTE HNO ID: [id number] Author: Melania Juares RN Service: Emergency Medicine [...] is written down for pt for his [place] medicaid insurance card and that pt states to the RN a ride will be provided for him. Policy # also written down on Same piece of paper. Security is watching pt from their office and pt is calling from his cell phone. Pt states repeatedly he cannot believe there is no protective services social worker to handle this for him here at his location. Informed pt that there has never been protective services social worker at [facility]. And with the information provided to him he should likely and easily be able to get a ride as he stated was the service on his insurance. Normal [facility] ED NOTE HNO ID: [id number] Author: Melania Juares RN Service: Emergency Medicine [...] [facility] ED NOTE HNO ID: [id number] Author: Melania D Mor, RN Service: Emergency [...] [facility] ED NOTE HNO ID: [id number] Author: Melania Juares RN Service: Emergency Medicine Author Type: Registered Nurse Type: ED Notes Filed: 06/02/2021 4:08 PM Note Text: After Normal [facility] ED NOTE HNO ID: [id number] Author: Melania Juares RN Service: Emergency Medicine Author Type: Registered Nurse Type: ED Notes Filed: 06/02/2021 2:52 PM Note Text: BACK FROM XRAY Normal [facility] ED NOTE HNO ID: [id number] Author: Melania Juares RN Service: Emergency Medicine [...] ANY ISSUE OR DISTRESS. VITALS STABLE ON CUPOLA TAPPER HELPER IN A SINUS RHYTHM. HE DENIES HAVING 99 VISITS TO ER'S AND MEDICAL FACILITIES DRS OFFICES ETC BUT IN THE SAME BREATH TALKS ABOUT ALL HIS HOSPITAL HOPPING. Normal [facility] ED NOTE HNO ID: [id number] Author: Melania Juares RN Service: Emergency Medicine Author Type: Registered Nurse Type: ED Notes Filed: 06/02/2021 2:44 PM Note Text: Labs sent and pt to xray now Normal [facility] ED NOTE HNO ID: [id number] Author: Melania Juares RN Service: Emergency Medicine [...] [facility] ED NOTE HNO ID: [id number] Author: Melania Juares RN Service: Emergency Medicine Author Type: Registered Nurse Type: ED Notes Filed: 06/02/2021 2:26 PM Note Text: ekg done and pt on monitoring engineer shows NSR Normal [facility] ED PROV NOTEon 06-02-2021 ED PROV NOTE HNO ID: [id number] Author: Lily Bingham DO Service: Emergency Medicine [...] well-known to multiple hospital systems throughout the [facility] region. Patient has been seen multiple times with the [facility] facilities as well as [facility] facilities nearly on a daily basis. He has [...] - Caffeine Rash Other reaction(s): Shakiness - [place] GI Upset, Rash, Vomiting Statused by Person: ?Tammy. Derrick(T Des[place]2) on Statused by Person: ?SRAVANTHI MONGE([facility]) on Statused by Person: ?Tammy. Derrick(T Desinoer2) on Statused by Person: ?SRAVANTHI MONGE([facility]) on - Amoxicillin GI Upset - Chocolate Flavor GI Upset - Ciprofloxacin Other: See Comments - Diazepam Unknown - Fentanyl Mental Status Change - Lorazepam GI Upset Other reaction(s): Abdominal Pain - Seasonal Allergies GI Upset Abdominal pain Abdominal pain - Serotonin Hcl Mental Status Change Other reaction(s): CARRIAGE FEEDER Reaction - Chocolate GI Upset, Vomiting - [...] TO CONFIRMATIONon 06-02-2021 Lab Specimen Source Normal [facility] Comment on above: Performed By: #### H IV ####[id number] [place] [address] HIV 1+2 Ab Qn (S) Non-Reactive See Below [address] [facility] Work Phone: Comment on above: SOURCE: Reference Ra nge: NONREACTIVE HIV Ag/Ab screen is performed using the Siemens Atell[employer] HIV Ag/Ab Combo assay which detects the [...] [facility] [facility] Work Phone: ALP [Catalytic activity/Vol] 60 U/L 33 - [address] [facility] Work Phone: [phone] ALT With P-5'-P [Catalytic activity/Vol] 24 U/L 10 - [address] [facility] Work Phone: [phone] Comment on above: Patients treated wit h Sulfasalazine may generate falsely decreased results for ALT. Anion gap [Moles/Vol] 12 mmol/L 10 - [address] [facility] Work Phone: [phone] AST With P-5'-P [Catalytic activity/Vol] 20 U/L 9 - [address] [facility] Work Phone: [phone] Bilirubin [Mass/Vol] 0.5 mg/dL 0.0 - 1.[address] [facility] Work Phone: [phone] Calcium [Mass/Vol] 9.4 mg/dL 8.6 - 10.[address] [facility] Work Phone: [phone] Chloride [Moles/Vol] 101 mmol/L 98 - [address] [facility] Work Phone: [phone] CO2 [Moles/Vol] 27 mmol/L 21 - [address] [facility] Work Phone: [phone] Creatinine [Mass/Vol] 0.97 mg/dL See Below [facility] [facility] Work Phone: [phone] Comment on above: Reference Range: 0.5 0 - 1.30 Glucose [Mass/Vol] 93 mg/dL 74 - [address] [facility] Work Phone: [phone] Potassium [Moles/Vol] 4.4 mmol/L 3.5 - 5.3 [address] [facility] Work Phone: [phone] Protein [Mass/Vol] 7.1 g/dL 6.4 - 8.[address] [facility] Work Phone: [phone] Sodium [Moles/Vol] 136 mmol/L 136 - [address] [facility] Work Phone: Urea nitrogen [Mass/Vol] 12 mg/dL 6 - [address] [facility] Work Phone: Magnesium, Serumon 1 Magnesium [Mass/Vol] 2.00 mg/dL See Below [address] [facility] Work Phone: Comment on above: Reference Range: 1.6 0 - 2.40 No Panel Informationon 06-02 [email or web address]?RetrieveTestByDateTim e?YhsssrnNL=[id number]&Da te=07-01-2021&Time=21%3a 43%3a26%3a00&TestType=EC G&Site=2&OutputType=PDF& Ext=PDF [facility] [address] Work Phone: [phone] Normal sinus rhythm [facility] [address] Work Phone: [phone] Abnormal [facility] [address] Work Phone: [phone] [facility] [address] Work Phone: [phone] [facility] [address] Work Phone: [phone] [facility] [address] Work Phone: [phone] 1 [facility] [address] Work Phone: [phone] [facility] [address] [facility] Work Phone: [phone] [facility] [address] Work Phone: [phone] [facility] [address] Work Phone: [phone] [facility] [address] [facility] Work Phone: [phone] [facility] [address] [facility] Work Phone: [phone] [facility] [address] [facility] Work Phone: [phone] [facility] [address] Work Phone: [phone] [facility] [address] Work Phone: [phone] [facility] [address] Work Phone: [phone] [facility] [address] Work Phone: [phone] [...] SPECIMEN Performed By: #### T ROP #### [facility] CLIA [id number] [address] [place] [id number] [place] [address] OF [facility] Triage - EDon 06-02-2021 Triage - ED [...] Medical History Reviewedno Electronic Signatures: Norma Zambrano ([place]) (Signed 02-Jun-2021 20:23) Authored: Quick Triage, Risk Screens, Pain, Travel History, Chart Review, Scores, Past Medical History Last Updated: 02-Jun-2021 20:23 by Norma Zambrano) Normal [facility] XR CHEST 2V FRONTAL/LATon XR CHEST 2V [...] tissues: Unremarkable. IMPRESSION: No acute radiographic abnormality. 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 0 - 36.0 MCV (RBC) [Entitic vol] 85 fL 80 - [address] [facility] Work Phone: [phone] Monocytes/100 WBC (Bld) 11.6 % 2.0 - 10.[address] [facility] Work Phone: [phone] Neutrophils/100 WBC (Bld) 58.1 % See Below [facility] [facility] Work Phone: [phone] Comment on above: Reference Range: 40. 0 - 80.0 Platelets (Bld) [#/Vol] 125 10*3/uL below low threshold 150 - [address] [facility] Work Phone: [phone] RBC (Bld) [#/Vol] 4.65 {x10E12/L} See Below [facility] [facility] Work Phone: [phone] Comment on above: Reference Range: 4.5 0 - 5.90 WBC (Bld) [#/Vol] 2.8 10*3/uL below low threshold 4.4 - 11.[address] [facility] Work Phone: [phone] Complete Blood Count + Differential 0.01 {x10E9/L} See Below [facility] [facility] Work Phone: [phone] Comment on above: Reference Range: 0.0 0 - 0.10 Complete Blood Count + Differential 0.06 {x10E9/L} See Below [facility] [facility] Work Phone: [phone] Comment on above: Reference Range: 0.0 0 - 0.70 Complete Blood Count + Differential 0.33 {x10E9/L} See Below [facility] [facility] Work Phone: [phone] Comment on above: Reference Range: 0.1 0 - 1.00 Complete Blood Count + Differential 0.79 {x10E9/L} below low threshold See Below [facility] [facility] Work Phone: [phone] Comment on above: Reference Range: 1.2 0 - 4.80 Complete Blood Count + Differential 1.65 {x10E9/L} See Below [facility] [facility] Work Phone: [phone] Comment on above: Reference Range: 1.2 0 - 7.70 Complete Blood Count + Differential 2.1 % 0.0 - 6.[address] [facility] Work Phone: [phone] Complete Blood Count + Differential 0.0 % 0.0 - 0.[address] [facility] Work Phone: [phone] Comment on above: Immature Granulocyte Count (IG) includes promyelocytes, myelocytes and metamyelocytes but does not include bands. Percent differential counts (%) should be interpreted in the context of the absolute cell counts (cells/L). Laboratory - Chemistry and C hemistry - challengeon 05-31-2021 Anion gap [Moles/Vol] 10 mmol/L 10 - [address] [facility] Work Phone: [phone] Calcium [Mass/Vol] 9.1 mg/dL 8.6 - 10.[address] [facility] Work Phone: [phone] Chloride [Moles/Vol] 103 mmol/L 98 - [address] [facility] Work Phone: [phone] CO2 [Moles/Vol] 27 mmol/L 21 - [address] [facility] Work Phone: [phone] Creatinine [Mass/Vol] 0.92 mg/dL See Below [facility] [address] [facility] Work Phone: [phone] Comment on above: Reference Range: 0.5 0 - 1.30 Glucose [Mass/Vol] 101 mg/dL above high threshold 74 - [address] [facility] Work Phone: [phone] Potassium [Moles/Vol] 3.9 mmol/L 3.5 - 5.[address] [address] [facility] Work Phone: [phone] Sodium [Moles/Vol] 136 mmol/L 136 - [address] [facility] Work Phone: [phone] Urea nitrogen [Mass/Vol] 14 mg/dL 6 - [address] [facility] Work Phone: [phone] Panel Informationon 05-31 >60 >[address] [facility] Work Phone: [phone] Comment on above: CALCULATIONS OF NIKOLE MATED GFR ARE PERFORMED USING THE MDRD STUDY EQUATION FOR THE IDMS-TRACEABLE CREATININE METHODS. CLIN CHEM 2007;53:766-72 [email or web address] 1:[email or web address]?RetrieveTestByDateTim e?QrrxclnWJ=[id number]&Da te=05-01-2021&Time=07%3a 29%3a08%3a00&TestType=EC G&Site=13&OutputType=PDF &Ext=PDF [facility] [address] [facility] Work Phone: [phone] Sinus rhythm [facility] [address] [facility] Work Phone: [phone] [address] [facility] [facility] Work Phone: [phone] [facility] Work Phone: [phone] [address] [facility] Work Phone: [phone] [address] [facility] Work Phone: [phone] [address] [facility] Work Phone: [phone] [address] [facility] Work Phone: [phone] [facility] Work Phone: [phone] [facility] Work Phone: [phone] [address] [facility] Work Phone: [phone] [facility] Work Phone: [phone] [facility] Work Phone: [phone] [facility] Work Phone: [phone] Radiologyon 05-31-2021 XR Abdomen AP Normal [facility] [address] [facility] Work Phone: XR Chest Single view Normal [facility] Vanna Cerna [facility] 160 Work Phone: Troponin I, Serumon 05-31-20 21 Troponin I.cardiac [Mass/Vol] ng/mL See Below Venkatesh Cerna [facility] 160 Work Phone: Comment on above: Reference [...] is performed using different testing methodology at [facility] than at other [facility]. Direct result comparisons should only be made within the same method. Troponin I.cardiac [Mass/Vol] ng/mL See Below Venkatesh Prabhakar [employer] [facility] 160 Work Phone: Comment on above: Reference [...] is performed using different testing methodology at [facility] than at other [facility]. Direct result comparisons should only be made within the same method. No Panel Informationon 05-30 [email or web address] [email or web address] [email or web address]?RetrieveTestByDateTim e?TpntuvmNB=[id number]&Da te=03-31-2021&Time=01%3a 02%3a37%3a00&TestType=EC G&Site=13&OutputType=PDF &Ext=PDF [facility] [address] [facility] Work Phone: Sinus rhythm [facility] [address] [facility] Work Phone: Normal [facility] [address] [facility] Work Phone: [phone] [address] [facility] Work Phone: [phone] [address] [facility] Work Phone: [phone] [address] [facility] Work Phone: [phone] [address] [facility] Work Phone: [phone] [facility] Work Phone: [phone] [address] [facility] Work Phone: [phone] [facility] [address] [facility] Work Phone: [phone] [facility] Work Phone: [phone] [facility] Work Phone: [phone] [facility] Work Phone: [phone] [facility] Work Phone: [phone] [facility] Work Phone: [phone] CORONAVIRUS 2019 BY PCRon SARS-CoV-2 (COVID-19) RNA TATI+probe Ql (Unsp spec) Not detected Normal Not Detected [facility] Comment on above: Result Comment: . This assay is designed to detect the ORF1ab and/or S genes of SARS-CoV-2 via nucleic acid amplification. A Not Detected result does not preclude 2019-nCoV infection since the adequacy of sample collection and/or low viral burden may result in presence of viral nucleic acids below the clinical sensitivity of this test method. Fact sheet for providers: www.fda.gov/media/456024/download Fact sheet for patients: www.fda.gov/media/985357/download This test has received FDA Emergency Use Authorization (EUA) and has been verified by [facility] ([facility]). This test is only authorized for the duration of time that circumstances exist to justify the authorization of the emergency use of in vitro diagnostic tests for the detection of SARS-CoV-2 virus and/or diagnosis of COVID-19 infection under section 564(b)(1) of the Act, 21 U.S.C. 360bbb-3(b)(1), unless the authorization is terminated or revoked sooner. [facility] is certified under CLIA-88 as qualified to perform high complexity testing. Testing is performed in the [facility] laboratories located at [address] [place] [address]. Performed By: #### C BCDF #### [place] [address] Lab Specimen Source Nasal, Nasopharyngeal Normal [facility] Comment on above: Performed By: #### C BCDF #### [place] [address] Covid 19 Resultson 1 SARS-CoV-2 (COVID-19) RNA [...] You may also be contacted by the [facility] to see if any of [...] or Naproxen (Aleve) can also be used. Flrj-uqw-oqnfybv cough and cold medicines can be used according to the instructions on the package. Some guhk-wyz-lddwere medicines also contain acetaminophen. 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 Avoid touching your eyes, nose, and mouth [...] 24 guerline (more content not included)... Normal [facility] CT Abdomen / Pelvis w IV onl [...] KEITH IRAHETA MD Date: 05/27/2021 21:[address] [facility] Coronavirus 2019 RNA by PCR, Symptomaticon 05-27-2021 Coronavirus 2019 RNA by PCR, Symptomatic Not detected Normal See Below [facility] [facility] Work Phone: Comment [...] this test method. Fact sheet for providers: www.fda.gov/media/078689/downloadFact sheet for patients: www.fda.gov/media/931920/downloadThis test has received FDA Emergency Use Authorization (EUA) and has been verified by [facility] ([facility]). This test is only authorized for the duration of time that circumstances exist to justify the authorization of the emergency use of in vitro diagnostic tests for the detection of SARS-CoV-2 virus and/or diagnosis of COVID-19 infection under section 564(b)(1) of the Act, 21 U.S.C. 360bbb-3(b)(1), unless the authorization is terminated or revoked sooner. [facility] is certified under CLIA-88 as qualified to perform high complexity testing. Testing is performed in the [facility] laboratories located at [address] [place] [address]. No Panel Informationon 05-27 [email or web address] 1:[email or web address]?RetrieveTestByDateTim e?IbzhiggUD=[id number]&Da te=12-30-2020&Time=06%3a 47%3a40%3a00&TestType=EC G&Site=13&OutputType=PDF &Ext=PDF [facility] Work Phone: [phone] Sinus rhythm [facility] Work Phone: [phone] Normal [facility] Work Phone: [phone] [facility] Work Phone: [phone] [facility] Work Phone: [phone] [facility] Work Phone: [phone] [facility] Work Phone: [phone] [facility] Work Phone: [phone] [facility] Work Phone: [phone] [facility] Work Phone: [phone] [facility] Work Phone: [phone] [facility] Work Phone: [phone] [facility] Work Phone: [phone] [facility] Work Phone: [phone] [facility] Work Phone: [phone] [facility] Work Phone: [phone] Radiologyon 05-27-2021 XR Chest 2 Views Normal [facility] [address] [facility] Work Phone: [phone] Complete Blood Count + Diffe rentialon 05-24-2021 Basophils/100 WBC (Bld) 0.6 % 0.0 - 2.0 [facility] Work Phone: [phone] Erythrocyte distribution width (RBC) [Ratio] 13.2 % See Below [facility] Work Phone: [phone] Comment on above: Reference Range: 11. 5 - 14.5 Hematocrit (Bld) [Volume fraction] 40.0 % below low threshold See Below [facility] Work Phone: [phone] Comment on above: Reference Range: 41. 0 - 52.0 Hemoglobin (Bld) [Mass/Vol] 13.0 g/dL below low threshold See Below [facility] Work Phone: [phone] Comment on above: Reference Range: 13. 5 - 17.5 Lymphocytes/100 WBC (Bld) 25.6 % See Below [facility] Work Phone: [phone] Comment on above: Reference Range: 13. 0 - 44.0 MCHC (RBC) [Mass/Vol] 32.5 g/dL See Below [facility] Work Phone: [phone] Comment on above: Reference Range: 32. 0 - 36.0 MCV (RBC) [Entitic vol] 86 fL 80 - 100 [facility] Work Phone: [phone] Monocytes/100 WBC (Bld) 9.6 % 2.0 - 10.0 [facility] Work Phone: [phone] Neutrophils/100 WBC (Bld) 61.7 % See Below [facility] Work Phone: [phone] Comment on above: Reference Range: 40. 0 - 80.0 Platelets (Bld) [#/Vol] 147 10*3/uL below low threshold 150 - 450 [facility] Work Phone: [phone] RBC (Bld) [#/Vol] 4.64 {x10E12/L} See Below [facility] Work Phone: [phone] Comment on above: Reference Range: 4.5 0 - 5.90 WBC (Bld) [#/Vol] 3.6 10*3/uL below low threshold 4.4 - 11.3 [facility] Work Phone: [phone] Complete Blood Count + Differential 0.02 {x10E9/L} See Below [facility] Work Phone: Comment on above: Reference Range: 0.0 0 - 0.10 Complete Blood Count + Differential 0.08 {x10E9/L} See Below [facility] Work Phone: Comment on above: Reference Range: 0.0 0 - 0.70 Complete Blood Count + Differential 0.34 {x10E9/L} See Below [facility] Work Phone: Comment on above: Reference Range: 0.1 0 - 1.00 Complete Blood Count + Differential 0.91 {x10E9/L} below low threshold See Below [facility] Work Phone: Comment on above: Reference Range: 1.2 0 - 4.80 Complete Blood Count + Differential 2.20 {x10E9/L} See Below [facility] Work Phone: Comment on above: Reference Range: 1.2 0 - 7.70 Complete Blood Count + Differential 2.2 % 0.0 - 6.0 [facility] Work Phone: Complete Blood Count + Differential 0.3 % 0.0 - 0.9 [facility] Work Phone: Comment on above: Immature Granulocyte Count (IG) includes promyelocytes, myelocytes and metamyelocytes but does not include bands. Percent differential counts (%) should be interpreted in the context of the absolute cell counts (cells/L). Laboratory - Chemistry and C hemistry - challengeon 05-24-2021 Albumin BCP dye [Mass/Vol] 4.1 g/dL 3.4 - 5.0 [facility] Work Phone: ALP [Catalytic activity/Vol] 55 U/L 33 - 120 [facility] Work Phone: ALT With P-5'-P [Catalytic activity/Vol] 16 U/L 10 - 52 [facility] Work Phone: Comment on above: Patients treated wit h Sulfasalazine may generate falsely decreased results for ALT. Anion gap [Moles/Vol] 9 mmol/L below low threshold 10 - 20 [facility] Work Phone: AST With P-5'-P [Catalytic activity/Vol] 18 U/L 9 - 39 [facility] Work Phone: Bilirubin [Mass/Vol] 0.3 mg/dL 0.0 - 1.2 [facility] Work Phone: Calcium [Mass/Vol] 9.1 mg/dL 8.6 - 10.3 [facility] Work Phone: [phone] Chloride [Moles/Vol] 106 mmol/L 98 - 107 [facility] Work Phone: [phone] CO2 [Moles/Vol] 28 mmol/L 21 - 32 [facility] Work Phone: Creatinine [Mass/Vol] 0.89 mg/dL See Below [facility] Work Phone: [phone] Comment on above: Reference Range: 0.5 0 - 1.30 Glucose [Mass/Vol] 92 mg/dL 74 - 99 [facility] Work Phone: [phone] Potassium [Moles/Vol] 4.6 mmol/L 3.5 - 5.3 [facility] Work Phone: Protein [Mass/Vol] 7.1 g/dL 6.4 - 8.2 [facility] Work Phone: Sodium [Moles/Vol] 138 mmol/L 136 - 145 [facility] Work Phone: Urea nitrogen [Mass/Vol] 13 mg/dL 6 - 23 [facility] Work Phone: Lipase, Serumon 05-24-2021 Lipase [Catalytic activity/Vol] 18 U/L 9 - 82 [facility] Work Phone: Comment on above: Venipuncture immedia tely after or during the administration of Metamizole may lead to falsely low results. Testing should be performed immediately prior to Metamizole dosing. I-nfqwai-y-benzoquinone imine (metabolite of Acetaminophen) will generate erroneously low results in samples for patients that have taken toxic doses of acetaminophen. No Panel Informationon 05-24 >60 >60 [facility] Work Phone: Comment on above: CALCULATIONS OF NIKOLE MATED GFR ARE PERFORMED USING THE MDRD STUDY EQUATION FOR THE IDMS-TRACEABLE CREATININE METHODS. CLIN CHEM 2007;53:766-72 [email or web address] [email or web address]?RetrieveTestByDateTim e?LyetonhUU=[id number]&Da te=10-01-2020&Time=19%3a 20%3a42%3a00&TestType=EC G&Site=13&OutputType=PDF &Ext=PDF [facility] Work Phone: [phone] Sinus rhythm [facility] Work Phone: [phone] [facility] [address] [facility] Work Phone: [phone] [address] [facility] Work Phone: [phone] [facility] [address] [facility] Work Phone: [phone] [address] [facility] Work Phone: [phone] [address] [facility] Work Phone: [phone] [address] [facility] Work Phone: [phone] [address] [facility] Work Phone: [phone] [address] [facility] Work Phone: [phone] [facility] Work Phone: [phone] [facility] Work Phone: [phone] [facility] Work Phone: [phone] [address] [facility] Work Phone: [phone] [address] [facility] Work Phone: [phone] Radiologyon 05-24-2021 XR Chest Single view Normal [facility] Work Phone: Troponin I, Serumon 05-24-20 21 Troponin I.cardiac [Mass/Vol] ng/mL See Below [facility] Work Phone: Comment on above: Reference [...] is performed using different testing methodology at [facility] than at other [facility]. Direct result comparisons should only be [...] until 8 hours following last biotin administration. [facility] Albumin [Mass/Vol] Albumin 4.6 GM/DL (3.5-5.0 GM/DL) 3.5 - 5.0 GM/DL [facility] Albumin/Globulin [Mass ratio] Albumin Globulin Ratio 1.5 RATIO (1.5-3.0 RATIO) 1.5 - 3.0 RATIO [facility] ALP (Bld) [Catalytic activity/Vol] Alk Phosphatase 72 U/L (35-125 U/L) 35 - 125 U/L [facility] ALT [Catalytic activity/Vol] ALT 20 U/L (5-40 U/L) 5 - 40 U/L S Anion gap [Moles/Vol] Anion Gap 12 MMOL/ L (0-19 MMOL/L) 0 - 19 MMOL/L [facility] AST [Catalytic activity/Vol] AST 18 U/L (5-40 U/L) 5 - 40 U/L S Bilirubin [Mass/Vol] Total Bilirubin 0.2 MG/DL (0.1-1.2 MG/DL) 0.1 - 1.2 MG/DL S Calcium [Mass/Vol] Calcium 9.5 MG/DL (8.5-10.4 MG/DL) 8.5 - 10.4 MG/DL S Chloride [Moles/Vol] Chloride 102 MMOL/L (97-107 MMOL/L) 97 - 107 MMOL/L S CO2 [Moles/Vol] Carbon Dioxide 26 MM OL/L (24-31 MMOL/L) 24 - 31 MMOL/L S Creatinine [Mass/Vol] Creatinine R 1.0 M G/DL (0.4-1.6 MG/DL) 0.4 - 1.6 MG/DL [facility] GFR/1.73 sq M.predicted MDRD (S/P/Bld) [Vol rate/Area] EGFR 84 mL/min/1.73 m2 (Reference Range: not available) GFR ml/min/1.73m2 Stage ----- 90 1 60-89 2 30-59 3 15-29 4 <15 5 For -Americans, multiply EGFR result by 1.210 Calculation not validated for patients under 18 years of age. Performed at [facility] [id number] [place] [address] [facility] Globulin (S) [Mass/Vol] Globulin 3.0 G/DL (1.9-3.7 G/DL) 1.9 - 3.7 G/DL S Glucose [Mass/Vol] Glucose 88 MG/DL (65 -99 MG/DL) 65 - 99 MG/DL S Potassium [Moles/Vol] Potassium R 3.8 MM OL/L (3.4-5.1 MMOL/L) 3.4 - 5.1 MMOL/L S Protein [Mass/Vol] Total Protein 7.6 G/ DL (5.9-7.9 G/DL) 5.9 - 7.9 G/DL [facility] Sodium [Moles/Vol] Sodium 140 MMOL/L (133-145 MMOL/L) 133 - 145 MMOL/L [facility] Troponin T.cardiac [Mass/Vol] HS Troponin T,Gen [...] until 8 hours following last biotin administration. [facility] Urea nitrogen [Mass/Vol] BUN 12 MG/DL (8-25 MG/DL) 8 - 25 MG/DL [facility] Urea nitrogen/Creatinine [Mass ratio] BUN Creatinine Ratio 12.0 RATIO (8-21 RATIO) 8 - 21 RATIO [facility] Laboratory - Hematology and Cell countson 05-16-2021 Basophils (Bld) [#/Vol] Abs Baso 0.02 K/UL (0.00-0.22 K/UL) 0.00 - 0.22 K/UL [employer] Basophils/100 WBC (Bld) Basophil 0.50 % (0-1 %) 0 - 1 % [facility] Differential cell count method Nom (Bld) Diff Type AUTO DIFF (Reference Range: not available) [facility] Eosinophils (Bld) [#/Vol] Abs Eos 0.06 K/UL (0-0.45 K/UL) 0 - 0.45 K/UL [facility] Eosinophils/100 WBC (Bld) Eosinophil 1.50 % (0-3 %) 0 - 3 % [employer] Erythrocyte distribution width (RBC) [Entitic vol] RDW SD 40.2 FL (37.0-54.0 FL) 37.0 - 54.0 FL [facility] Erythrocyte distribution width (RBC) [Ratio] RDW CV 12.9 % (11.7-15.0 %) 11.7 - 15.0 % [facility] Hematocrit (Bld) [Volume fraction] HCT 44.1 % (41-50 %) 41 - 50 % [facility] Hemoglobin (Bld) [Mass/Vol] HGB 14.3 GM/DL (13.5-16.5 GM/DL) 13.5 - 16.5 GM/DL [employer] Immature granulocytes (Bld) [#/Vol] Abs Imm Neut 0.01 K/UL (0.0-0.1 K/UL) 0.0 - 0.1 K/UL [facility] Lymphocytes (Bld) [#/Vol] Abs Lymph 0.91 K/UL L (1.2-3.2 K/UL) Low 1.2 - 3.2 K/UL [facility] Lymphocytes/100 WBC (Bld) Lymphocyte 22.60 % (20-40 %) 20 - 40 % [facility] MCH (RBC) [Entitic mass] MCH 28.0 PG (26-34 PG) 26 - 34 PG S MCHC (RBC) [Mass/Vol] MCHC 32.4 % (31-37 %) 31 - 37 % [facility] MCV (RBC) [Entitic vol] MCV 86.3 FL (80-100 FL) 80 - 100 FL [facility] Monocytes (Bld) [#/Vol] Abs Wilbarger 0.29 K/UL (0-0.8 K/UL) 0 - 0.8 K/UL [facility] Monocytes/100 WBC (Bld) Monocyte 7.20 % (0-8 %) 0 - 8 % [facility] Neutrophils (Bld) [#/Vol] Abs.Neut.Calculated 2.73 K/UL (Reference Range: not available) Performed at [address] [address] [facility] Neutrophils (Bld) [#/Vol] Abs Neut 2.73 K/UL (1.8-7.7 K/UL) 1.8 - 7.7 K/UL [facility] Neutrophils.immature/ 100 WBC (Bld) Immature Neut % 0.20 % (0.0-1.0 %) 0.0 - 1.0 % [facility] Nucleated RBC/100 WBC (Bld) [Ratio] NRBCs 0 /100 WBC (0 /100 WBC) [facility] Platelet mean volume (Bld) [Entitic vol] MPV 11.0 CU (7.0-12.6 CU) 7.0 - 12.6 CU [facility] Platelets (Bld) [#/Vol] PLT 157 K/UL (150-450 K/UL) 150 - 450 K/UL [facility] RBC (Bld) [#/Vol] RBC 5.11 M/UL (4.5-5 .5 M/UL) 4.5 - 5.5 M/UL [facility] Segmented neutrophils/100 WBC (Bld) Granulocyte 68.00 % (50-70 %) 50 - 70 % [facility] WBC (Bld) [#/Vol] WBC 4.0 K/UL L (4.5- 11.0 K/UL) Low 4.5 - 11.0 K/UL [facility] No Panel Informationon 05-16 HS Troponin T Delta 0 (0-4 ) Performed at [address] [address] 0 - 4 [facility] XR Chest Portable (1view) (Reference Range: not available) *FINAL Date of Service: 05/16/2021 14:01 Adm #: [id number] Reading Dr:ELVIRA MOORE Signoff Dr: ELVIRA MOORE [...] focal consolidation, pleural effusion, or visible pneumothorax. [id number] This report has been produced using speech recognition. Original Interpreting Physician: ELVIRA MOORE MD Original Transcribed by/Date: PSCB May 16 2021 2:30P Original Electronically Signed by/Date: ELVIRA MOORE MD May 16 2021 2:30P Addendum Interpreting Physician: Addendum Transcribed by/Date: NO ADDENDUM Addendum Electronically Signed by/Date: [facility] HS Troponin T Delta No previous result Performed at [address] [facility] [address] (0-4 ) 0 - 4 [facility] Laboratory - Microbiology an d Antimicrobial susceptibilityon 05-15-2021 FLUAV RNA TATI+probe Ql (Nph) FLU A by PCR NEGATIVE (Reference Range: not available) [facility] FLUBV RNA TATI+probe Ql (Nph) FLU B by PCR NEGATIVE (Reference Range: not available) [facility] SARS-CoV-2 (COVID-19) RNA TATI+probe Ql (Unsp spec) SARS-CoV-2 by PCR NEGATIVE (NEG ) [facility] Office Visit (OMT - Osteopat hic [...] - April of 2021 He drinks a Carlos 45 malt liquor daily Physical exam No [...] the Osteopathic sports rehabilitation clinic at the [facility] I noticed muscle imbalances on my [...] pain and discomfort and improving muscular endurance [email or web address]: prescription for exercise rehabilitation provided - specifically: [...] the shoulder was greater. Pre-Treatment Pain Level: 10. Active Problems Problems Anemia (285.9) (D64.9) Ascending [...] GRAN 0.2 % Normal 0.0 - 0.9 [facility] Comment on above: Result Comment: Kath ture Granulocyte Count (IG) includes promyelocytes, myelocytes and metamyelocytes but does not include bands. Percent differential counts (%) should be interpreted in the context of the absolute cell counts (cells/L). Performed By: #### C BCDF #### [facility] [address] [place], [place] [phone] Basophils (Bld) [#/Vol] 0.01 10*3/uL Normal 0.00 - 0.10 [facility] Comment on above: Performed By: #### C BCDF #### [facility] [address] [facility], [place] [phone] Basophils/100 WBC (Bld) 0.2 % Normal 0.0 - 2.0 [facility] Comment on above: Performed By: #### C BCDF #### [facility] [address] [facility] [place], [place] [phone] Eosinophils (Bld) [#/Vol] 0.11 10*3/uL Normal 0.00 - 0.70 [facility] Comment on above: Performed By: #### C BCDF #### [facility] [address] [facility] [place], [place] [phone] Eosinophils/100 WBC (Bld) 2.4 % Normal 0.0 - 6.0 [facility] Comment on above: Performed By: #### C BCDF #### [address] [place], [place] [phone] Erythrocyte distribution width (RBC) [Ratio] 13.0 % Normal 11.5 - 14.5 [facility] Comment on above: Performed By: #### C BCDF #### [address] [place], [place] [phone] Hematocrit (Bld) [Volume fraction] 38.3 % Low 41.0 - 52.0 [facility] Comment on above: Performed By: #### C BCDF #### [place] [id number] [facility] [place], [place] [phone] Hemoglobin (Bld) [Mass/Vol] 12.6 g/dL Low 13.5 - 17.5 [facility] Comment on above: Performed By: #### C BCDF #### [facility] [address] [facility] [place], [place] [phone] Lymphocytes (Bld) [#/Vol] 0.94 10*3/uL Low 1.20 - 4.80 [facility] Comment on above: Performed By: #### C BCDF #### [facility] [address] [facility] [place] [phone] Lymphocytes/100 WBC (Bld) 20.3 % Normal 13.0 - 44.0 [facility] Comment on above: Performed By: #### C BCDF #### [facility] [address] [facility] [place] [phone] MCHC (RBC) [Mass/Vol] 32.9 g/dL Normal 32.0 - 36.0 [facility] Comment on above: Performed By: #### C BCDF #### [facility] [address] [facility] [place], [place] [phone] MCV (RBC) [Entitic vol] 84 fL Normal 80 - 100 [facility] Comment on above: Performed By: #### C BCDF #### [facility] [address] [facility] [place] [phone] Monocytes (Bld) [#/Vol] 0.41 10*3/uL Normal 0.10 - 1.00 [facility] Comment on above: Performed By: #### C BCDF #### [facility] [address] [facility] [place], [place] [phone] Monocytes/100 WBC (Bld) 8.8 % Normal 2.0 - 10.0 [facility] Comment on above: Performed By: #### C BCDF #### [facility] [address] [facility] [place], [place] [phone] Neutrophils (Bld) [#/Vol] 3.16 10*3/uL Normal 1.20 - 7.70 [facility] Comment on above: Performed By: #### C BCDF #### [facility] [address] [facility] [place], [place] [address] Neutrophils/100 WBC (Bld) 68.1 % Normal 40.0 - 80.0 [facility] Comment on above: Performed By: #### C BCDF #### [facility] [address] [facility] [place], [place] [phone] Platelets (Bld) [#/Vol] 159 10*3/uL Normal 150 - 450 [facility] Comment on above: Performed By: #### C BCDF #### [facility] [address] [facility] [place] [phone] RBC 4.56 x10E12/L Normal 4.50 - 5.90 [facility] Comment on above: Performed By: #### C BCDF #### [facility] [address] [facility] [place], [place] [phone] WBC (Bld) [#/Vol] 4.6 10*3/uL Normal 4.4 - 11.3 [facility] Comment on above: Performed By: #### C BCDF #### [facility] [address] [facility] [place], [place] [phone] COMPREHENSIVE PANELon 2020 Albumin [Mass/Vol] 4.2 g/dL Normal 3.4 - 5.0 [facility] Comment on above: Performed By: #### C MP ####[facility] [facility] [place], [place] [phone] ALP [Catalytic activity/Vol] 57 U/L Normal 33 - 120 [facility] Comment on above: Performed By: #### C MP ####[facility] [facility] [place] [phone] ALT [Catalytic activity/Vol] 21 U/L Normal 10 - 52 [facility] Comment on above: Result Comment: Yanni ents treated with Sulfasalazine may generate falsely decreased results for ALT. Performed By: #### C MP ####[facility] [facility] [place] [phone] Anion gap [Moles/Vol] 12 mmol/L Normal 10 - 20 [facility] Comment on above: Performed By: #### C MP ####[facility] [facility] [place] [phone] AST [Catalytic activity/Vol] 19 U/L Normal 9 - 39 [facility] Comment on above: Performed By: #### C MP ####[facility] [facility] [place], [place] [phone] Bilirubin [Mass/Vol] 0.4 mg/dL Normal 0.0 - 1.2 [facility] Comment on above: Performed By: #### C MP ####[facility] [facility] [place] [phone] Calcium [Mass/Vol] 9.3 mg/dL Normal 8.6 - 10.3 [facility] Comment on above: Performed By: #### C MP ####[facility] [facility] [place] [phone] Chloride [Moles/Vol] 103 mmol/L Normal 98 - 107 [facility] Comment on above: Performed By: #### C MP ####[facility] [facility] [place], [place] [phone] Creatinine [Mass/Vol] 1.02 mg/dL Normal 0.50 - 1.30 [facility] Comment on above: Performed By: #### C MP ####[facility] [facility] [place], [place] [phone] GFR- AM. >60 Normal >60 [facility] Comment on above: Result Comment: CALC ULATIONS OF ESTIMATED GFR ARE PERFORMED USING THE MDRD STUDY EQUATION FOR THE IDMS-TRACEABLE CREATININE METHODS. CLIN CHEM 2007;53:766-72 Performed By: #### C MP ####[facility] [facility] [place], [place] [phone] GFR-NON AM. >60 Normal >60 [facility] Comment on above: Performed By: #### C MP ####[facility] [facility] [place], [place] [phone] Glucose [Mass/Vol] 82 mg/dL Normal 74 - 99 [facility] Comment on above: Performed By: #### C MP ####[facility] [facility] [place], [place] [phone] HCO3 (Bld) [Moles/Vol] 27 mmol/L Normal 21 - 32 [facility] Comment on above: Performed By: #### C MP ####[facility] [facility] [place] [phone] Potassium [Moles/Vol] 3.8 mmol/L Normal 3.5 - 5.3 [facility] Comment on above: Performed By: #### C MP ####[facility] [place], [place] [address] Protein [Mass/Vol] 6.9 g/dL Normal 6.4 - 8.2 [facility] Comment on above: Performed By: #### C MP ####[facility] [place], [place] [address] Sodium [Moles/Vol] 138 mmol/L Normal 136 - 145 [facility] Comment on above: Performed By: #### C MP ####[facility] [place], [place] [address] Urea nitrogen [Mass/Vol] 18 mg/dL Normal 6 - 23 [facility] Comment on above: Performed By: #### C MP ####[facility] [place], [place] [phone] CT Angio Abdomen Pelvis with Contrast including non cont Image with Post Procedureon 05-08-2021 CT Abdomen and Pelvis and CT angiogram Abdominal aorta W contrast IV Normal MP-Ayush [employer] [facility]-Yareli Alvarado MD Practice Work Phone: CT Angio Cheston 05-08-2021 CTA Chest vessels Normal FLORINDA-Ny or [employer] [facility]-Yareli Alvarado MD Practice Work Phone: CTA ABDOMEN PELVIS WITH CONT INCL NON CONT IMAGE W POST PROCon 05-08-2021 CTA ABDOMEN PELVIS WITH CONT INCL NON CONT IMAGE W POST PROC STUDY: CT Angiogram of the Chest, Abdomen, and Pelvis; 05/08/2021 7:56 PM. INDICATION: Right flank pain. History of thoracic aortic aneurysm. COMPARISON: CTA CAP 04/16/2021. ACCESSION NUMBER(S): [id number], [id number] ORDERING CLINICIAN: ARIE NGUYEN MD TECHNIQUE: Helical [...] MD Electronically signed by: SAHIL PARKS MD [facility] Complete Blood Count + Lorena conner 05-08-2021 Basophils/100 WBC (Bld) 0.2 % 0.0 - 2.0 Sh[facility]e [facility] Practice Work Phone: [phone] Erythrocyte distribution width (RBC) [Ratio] 13.0 % See Below [facility] bianca [facility] Practice Work Phone: [phone] Comment on above: Reference Range: 11. 5 - 14.5 Hematocrit (Bld) [Volume fraction] 38.3 % below low threshold See Below [facility] Hospital[facility] valenzuela [facility] Practice Work Phone: [phone] Comment on above: Reference Range: 41. 0 - 52.0 Hemoglobin (Bld) [Mass/Vol] 12.6 g/dL below low threshold See Below FLORINDAAyush [facility] HospitalYareli valenzuela [facility] Practice Work Phone: [phone] Comment on above: Reference Range: 13. 5 - 17.5 Lymphocytes/100 WBC (Bld) 20.3 % See Below [facility]ENTERAyushEll[facility] HospitalYareli valenzuela [facility] Practice Work Phone: [phone] Comment on above: Reference Range: 13. 0 - 44.0 MCHC (RBC) [Mass/Vol] 32.9 g/dL See Below SAQIB [facility]Ell[facility] HospitalYareli valenzuela [facility] Practice Work Phone: [phone] Comment on above: Reference Range: 32. 0 - 36.0 MCV (RBC) [Entitic vol] 84 fL 80 - 100 [facility] bianca [facility] Practice Work Phone: [phone] Monocytes/100 WBC (Bld) 8.8 % 2.0 - 10.0 [facility] bianca [facility] Practice Work Phone: [phone] Neutrophils/100 WBC (Bld) 68.1 % See Below [facility] Work Phone: [phone] Comment on above: Reference Range: 40. 0 - 80.0 Platelets (Bld) [#/Vol] 159 10*3/uL 150 - 450 [facility] [place] [address] Practice Work Phone: RBC (Bld) [#/Vol] 4.56 {x10E12/L} See Below [address] Practice Work Phone: Comment on above: Reference Range: 4.5 0 - 5.90 WBC (Bld) [#/Vol] 4.6 10*3/uL 4.4 - 11.[address] Practice Work Phone: [phone] Complete Blood Count + Differential 0.01 {x10E9/L} See Below [address] Practice Work Phone: [phone] Comment on above: Reference Range: 0.0 0 - 0.10 Complete Blood Count + Differential 0.11 {x10E9/L} See Below [address] Practice Work Phone: [phone] Comment on above: Reference Range: 0.0 0 - 0.70 Complete Blood Count + Differential 0.41 {x10E9/L} See Below [facility] [address] Practice Work Phone: Comment on above: Reference Range: 0.1 0 - 1.00 Complete Blood Count + Differential 0.94 {x10E9/L} below low threshold See Below [address] Practice Work Phone: [phone] Comment on above: Reference Range: 1.2 0 - 4.80 Complete Blood Count + Differential 3.16 {x10E9/L} See Below [address] Practice Work Phone: Comment on above: Reference Range: 1.2 0 - 7.70 Complete Blood Count + Differential 2.4 % 0.0 - 6.[address] Practice Work Phone: Complete Blood Count + Differential 0.2 % 0.0 - 0.9 [place] [address] Practice Work Phone: [phone] Comment on above: Immature Granulocyte Count (IG) includes promyelocytes, myelocytes and metamyelocytes but does not include bands. Percent differential counts (%) should be interpreted in the context of the absolute cell counts (cells/L). Laboratory - Chemistry and C hemistry - challengeon 05-08-2021 Albumin BCP dye [Mass/Vol] 4.2 g/dL 3.4 - 5.0 [place] [address] Practice Work Phone: [phone] ALP [Catalytic activity/Vol] 57 U/L 33 - [address] Practice Work Phone: [phone] ALT With P-5'-P [Catalytic activity/Vol] 21 U/L 10 - [address] Practice Work Phone: [phone] Comment on above: Patients treated wit h Sulfasalazine may generate falsely decreased results for ALT. Anion gap [Moles/Vol] 12 mmol/L 10 - 20 [place] [address] Practice Work Phone: [phone] AST With P-5'-P [Catalytic activity/Vol] 19 U/L 9 - 39 [place] [address] Practice Work Phone: [phone] Bilirubin [Mass/Vol] 0.4 mg/dL 0.0 - 1.2 MP-C [place] [address] Practice Work Phone: [phone] Calcium [Mass/Vol] 9.3 mg/dL 8.6 - 10.3 -Con nor [place] [address] Practice Work Phone: [phone] Chloride [Moles/Vol] 103 mmol/L 98 - 107 [facility] [address] Practice Work Phone: [phone] CO2 [Moles/Vol] 27 mmol/L 21 - 32 [place] [address] Practice Work Phone: Creatinine [Mass/Vol] 1.02 mg/dL See Below [facility] [address] Practice Work Phone: Comment on above: Reference Range: 0.5 0 - 1.30 Glucose [Mass/Vol] 82 mg/dL 74 - [address] Practice Work Phone: [phone] Potassium [Moles/Vol] 3.8 mmol/L 3.5 - 5.[address] Practice Work Phone: [phone] Protein [Mass/Vol] 6.9 g/dL 6.4 - 8.[address] Practice Work Phone: [phone] Sodium [Moles/Vol] 138 mmol/L 136 - [address] Practice Work Phone: Urea nitrogen [Mass/Vol] 18 mg/dL 6 - [address] Practice Work Phone: [phone] No Panel Informationon 05-08 >60 >[address] Practice Work Phone: Comment on above: [...] Immature Granulocyte (more content not included)... Normal [facility] Risk Screen - Adult Emergenc yon 05-08-2021 Risk Screen - Adult Emergency Preferred Language: Preferred Language: Preferred Language for Discussing Health Care (patient/designee)Fran carver Advanced Directives: Advance Directive/DNRno Family Violence Adult: [...] instruction; verbal instruction Cultural Considerationsnone Developmental Considerationsnone Mandaeism Considerationsnone Learning Assessment (Other Learner): Learning Assessment (Other Learner): Other learner availableno Pressure Injury/TB/Substance: Pressure Injury: Pressure Injury Present on Admissionno Do you have a coughno Smoking Statusnever smoker Admission Risk Screen: Significant IndicatorsComplete CAGE: CAGE: Is this an injured patient at a Trauma Center ([facility] [place]): no Electronic Signatures: Rae Duval (BROOKLYNN) (Signed 08-May-2021 20:10) Authored: Preferred Language, Advanced Directives, Family Violence Adult, Learning Assessment (Patient), Learning Assessment (Other Learner), Pressure Injury/TB/Substance, Pressure Injury, CAGE Last Updated: 08-May-2021 20:10 by Rae Duval (BROOKLYNN) [facility] TH CT ANGIO CHESTon 05-08-20 CT ANGIO CHEST STUDY: CT Angiogram of the Chest, Abdomen, and Pelvis; 05/08/2021 7:56 PM. INDICATION: Right flank pain. History of thoracic aortic aneurysm. COMPARISON: CTA CAP 04/16/2021. ACCESSION NUMBER(S): [id number], [id number] ORDERING CLINICIAN: ARIE NGUYEN MD TECHNIQUE: Helical [...] Electronically signed by: SAHIL PARKS MD Normal [facility] TROPONIN Ion 05-08-2021 Troponin I.cardiac [Mass/Vol] ng/mL Normal 0.00 - 0.03 [facility] Comment on above: Result Comment: LESS [...] is performed using different testing methodology at [facility] than at other [facility]. Direct result comparisons should only be made within the same method. Performed By: #### T ROP2 ####[facility] [place], [place] [phone] Triage - EDon 05-08-2021 Triage - ED Chart Review: ARRIVAL INFORMATION Mode of Arrival: ambulance Agency Name: [place] CHIEF COMPLAINT HOSEA ALVAREZ is a Male [...] Updated: 08-May-2021 17:20 by Jamie Puentes (EMT-P) [facility] Troponin I, Serumon 05-08-20 21 Troponin I.cardiac [Mass/Vol] ng/mL See Below [facility] bianca [facility] Practice Work Phone: Comment on above: Reference [...] is performed using different testing methodology at [facility] than at [facility]. Direct result comparisons should only be made within the same method. URINALYSISon 05-08-2021 Appearance (U) CLEAR Normal CLEAR [facility] Comment on above: Performed By: #### U A #### [facility] [address] [facility] [place], [place] [phone] Bilirubin Ql (U) Negative Normal NEGATIVE Regio nal [facility] Comment on above: Performed By: #### U A #### [facility] [address] [facility] [place], [place] [phone] Color (U) STRAW Normal STRAW,YELLOW [facility] Comment on above: Performed By: #### U A #### [facility] [address] [facility] [place], [place] [phone] Glucose Ql (U) Negative Normal NEGATIVE [facility] Comment on above: Performed By: #### U A #### [facility] [address] [facility] [place], [place] [phone] Hemoglobin Ql (U) Negative Normal NEGATIVE [facility] Sara onal [facility] Comment on above: Performed By: #### U A #### [facility] [address] [facility] [place], [place] [phone] Ketones Ql (U) Negative Normal NEGATIVE [facility] Comment on above: Performed By: #### U A #### [facility] [address] [facility] [place], [place] [phone] Leukocyte esterase Test strip Ql (U) Negative Normal NEGATIVE [facility] Comment on above: Performed By: #### U A #### [facility] [address] [facility] [place], [place] [phone] Nitrite Ql (U) Negative Normal NEGATIVE [facility] Comment on above: Performed By: #### U A #### [facility] [address] [facility] [place], [place] [phone] pH (U) 6.0 [pH] Normal 5.0 - 8.0 [facility] Comment on above: Performed By: #### U A #### [facility] [address] [facility] [place] [phone] Protein Ql (U) Negative Normal NEGATIVE [facility] Comment on above: Performed By: #### U A #### [facility] [address] [facility], [place] [phone] Specific gravity (U) [Rel density] 1.005 Normal 1.005 - 1.035 [facility] Comment on above: Performed By: #### U A #### [facility] [address] [facility], [place] [phone] Urobilinogen (U) [Mass/Vol] mg/dL Normal 0.0 - 1.9 [facility] Comment on above: Performed By: #### U A #### [facility] [address] [facility], [place] [phone] Urinalysison 05-08-2021 Color (U) STRAW See Below [facility] bianca [facility] Work Phone: [phone] Comment on above: Reference Range: STR AW,YELLOW Glucose Ql (U) Negative NEGATIVE [facility] bianca [facility] Practice Work Phone: [phone] Ketones Ql (U) Negative NEGATIVE [facility] bianca [facility] Work Phone: [phone] Leukocyte esterase Test strip Ql (U) Negative NEGATIVE [facility] [place] [address] Practice Work Phone: [phone] pH (U) 6.0 [pH] 5.0 - 8.0 [facility] bianca [facility] Work Phone: [phone] Protein (U) [Mass/Vol] Negative NEGATIVE [facility] [place] [address] Practice Work Phone: [phone] RBC (U) [#/Vol] Negative NEGATIVE [place] [address] Practice Work Phone: [phone] Specific gravity (U) [Rel density] 1.005 1 See Below [facility] bianca [facility] Work Phone: [phone] Comment on above: Reference Range: 1.0 05 - 1.035 Urinalysis Negative NEGATIVE [facility] bianca [facility] Practice Work Phone: Urinalysis <2.0 0.0 - 1.9 [facility] bianca [facility] Practice Work Phone: Urinalysis CLEAR CLEAR [facility] bianca [facility] Work Phone: Laboratory - Chemistry and C hemistry - challengeon 05-07-2021 Anion gap [Moles/Vol] Anion Gap 9 MMOL/L (0-19 MMOL/L) 0 - 19 MMOL/L S Calcium [Mass/Vol] Calcium 9.0 MG/DL (8.5-10.4 MG/DL) 8.5 - 10.4 MG/DL S Chloride [Moles/Vol] Chloride 102 MMOL/L (97-107 MMOL/L) 97 - 107 MMOL/L S CO2 [Moles/Vol] Carbon Dioxide 28 MM OL/L (24-31 MMOL/L) 24 - 31 MMOL/L S Creatinine [Mass/Vol] Creatinine R 0.9 M G/DL (0.4-1.6 MG/DL) 0.4 - 1.6 MG/DL [facility] GFR/1.73 sq M.predicted MDRD (S/P/Bld) [Vol rate/Area] EGFR 95 mL/min/1.73 m2 (Reference Range: not available) GFR ml/min/1.73m2 Stage ----- 90 1 60-89 2 30-59 3 15-29 4 <15 5 For -Americans, multiply EGFR result by 1.210 Calculation not validated for patients under 18 years of age. Performed at [address] [address] [facility] Glucose [Mass/Vol] Glucose 103 MG/DL H (65-99 MG/DL) High 65 - 99 MG/DL S Magnesium [Mass/Vol] Magnesium 2.0 MG/DL (1.6-3.1 MG/DL) Performed at [address] [address] 1.6 - 3.1 MG/DL S Natriuretic peptide.B prohormone N-Terminal [Mass/Vol] Pro BNP 38 PG/ML (0-138 PG/ML) Reference ranges are based on clinical submission data. These ranges represent the 95th percentile of normal cut-off points. As NT pro-BNP values approach 1000 pg/ml, clinical symptoms are more likely associated with CHF. Performed at [address] [address] 0 - 138 PG/ML S Potassium [Moles/Vol] Potassium R 4.0 MM [...] until 8 hours following last biotin administration. S Urea nitrogen [Mass/Vol] BUN 12 MG/DL (8-25 MG/DL) 8 - 25 MG/DL S Urea nitrogen/Creatinine [Mass ratio] BUN Creatinine Ratio 13.3 RATIO (8-21 RATIO) 8 - 21 RATIO [facility] - Hematology and Cell countson 05-07-2021 Basophils (Bld) [#/Vol] Abs Baso 0.03 K/UL (0.00-0.22 K/UL) 0.00 - 0.22 K/UL [facility] Basophils/100 WBC (Bld) Basophil 0.90 % (0-1 %) 0 - 1 % [facility] Differential cell count method Nom (Bld) Diff Type AUTO DIFF (Reference Range: not available) [facility] Eosinophils (Bld) [#/Vol] Abs Eos 0.03 K/UL (0-0.45 K/UL) 0 - 0.45 K/UL [facility] Eosinophils/100 WBC (Bld) Eosinophil 0.90 % (0-3 %) 0 - 3 % [facility] Erythrocyte distribution width (RBC) [Entitic vol] RDW SD 41.1 FL (37.0-54.0 FL) 37.0 - 54.0 FL [facility] Erythrocyte distribution width (RBC) [Ratio] RDW CV 12.9 % (11.7-15.0 %) 11.7 - 15.0 % [facility] Hematocrit (Bld) [Volume fraction] HCT 41.3 % (41-50 %) 41 - 50 % [facility] Hemoglobin (Bld) [Mass/Vol] HGB 13.2 GM/DL L (13.5-16.5 GM/DL) Low 13.5 - 16.5 GM/DL [facility] Immature granulocytes (Bld) [#/Vol] Abs Imm Neut 0.01 K/UL (0.0-0.1 K/UL) 0.0 - 0.1 K/UL [facility] Lymphocytes (Bld) [#/Vol] Abs Lymph 0.72 K/UL L (1.2-3.2 K/UL) Low 1.2 - 3.2 K/UL [facility] Lymphocytes/100 WBC (Bld) Lymphocyte 20.90 % (20-40 %) 20 - 40 % [facility] MCH (RBC) [Entitic mass] MCH 27.8 PG (26-34 PG) 26 - 34 PG S MCHC (RBC) [Mass/Vol] MCHC 32.0 % (31-37 %) 31 - 37 % S MCV (RBC) [Entitic vol] MCV 87.1 FL (80-100 FL) 80 - 100 FL [facility] Monocytes (Bld) [#/Vol] Abs [place] 0.39 K/UL (0-0.8 K/UL) 0 - 0.8 K/UL [facility] Monocytes/100 WBC (Bld) Monocyte 11.30 % H (0-8 %) High 0 - 8 % [facility] Neutrophils (Bld) [#/Vol] Abs.Neut.Calculated 2.26 K/UL (Reference Range: not available) Performed at [address] [address] [facility] Neutrophils (Bld) [#/Vol] Abs Neut 2.26 K/UL (1.8-7.7 K/UL) 1.8 - 7.7 K/UL [facility] Neutrophils.immature/ 100 WBC (Bld) Immature Neut % 0.30 % (0.0-1.0 %) 0.0 - 1.0 % [facility] Nucleated RBC/100 WBC (Bld) [Ratio] NRBCs 0 /100 WBC (0 /100 WBC) [facility] Platelet mean volume (Bld) [Entitic vol] MPV 10.9 CU (7.0-12.6 CU) 7.0 - 12.6 CU [facility] Platelets (Bld) [#/Vol] PLT 165 K/UL (150-450 K/UL) 150 - 450 K/UL S RBC (Bld) [#/Vol] RBC 4.74 M/UL (4.5-5 .5 M/UL) 4.5 - 5.5 M/UL [facility] Segmented neutrophils/100 WBC (Bld) Granulocyte 65.70 % (50-70 %) 50 - 70 % [facility] WBC (Bld) [#/Vol] WBC 3.4 K/UL L (4.5- 11.0 K/UL) Low 4.5 - 11.0 K/UL [facility] No Panel Informationon 05-07 HS Troponin T Delta 5 H (0-4 ) Performed at [address] [address] High 0 - 4 [facility] EKG (Reference Range : not available) Ventricular Rate : 91 BPM Atrial Rate : 91 BPM P-R Interval : 160 ms QRS Duration : 100 ms Q-T Interval : 342 ms QTC Calculation(Bazett) : 420 ms Calculated P [place] : 36 degrees Calculated R [place] : -29 degrees Calculated T [place] : 24 degrees Diagnosis:Normal sinus rhythm Poor R wave progression Abnormal ECG When compared with ECG of 06-MAY-2021 09:58, No significant change was found Confirmed by ROBERTH STORY ([id number]) on 05/07/2021 11:44:56 AM See also the report from this date [facility] Laboratory - Chemistry and C hemistry - [...] until 8 hours following last biotin administration. S Anion gap [Moles/Vol] Anion Gap 14 MMOL/ L (0-19 MMOL/L) 0 - 19 MMOL/L S Calcium [Mass/Vol] Calcium 9.1 MG/DL (8.5-10.4 MG/DL) 8.5 - 10.4 MG/DL S Chloride [Moles/Vol] Chloride 105 MMOL/L (97-107 MMOL/L) [...] under 18 years of age. Performed at [address] [address] [facility] Glucose [Mass/Vol] Glucose 99 MG/DL (65 -99 MG/DL) 65 - 99 MG/DL [facility] Potassium [Moles/Vol] Potassium R 4.2 MM OL/L (3.4-5.1 MMOL/L) 3.4 - 5.1 MMOL/L [facility] Sodium [Moles/Vol] Sodium 139 MMOL/L (133-145 MMOL/L) 133 - 145 MMOL/L [facility] Troponin T.cardiac [Mass/Vol] HS Troponin T,Gen [...] until 8 hours following last biotin administration. [facility] Urea nitrogen [Mass/Vol] BUN 17 MG/DL (8-25 MG/DL) 8 - 25 MG/DL [facility] Urea nitrogen/Creatinine [Mass ratio] BUN Creatinine Ratio 18.9 RATIO (8-21 RATIO) 8 - 21 RATIO [facility] Laboratory - Coagulationon 0 05-06-2021 Fibrin [...] IN PATIENTS RECEIVING ANTI-COAGULATION THERAPY. Performed at [address] [address] 0.19 - 0.50 MG/L FEU [facility] Laboratory - Hematology and Cell countson 05-06-2021 Basophils (Bld) [#/Vol] Abs Baso 0.01 K/UL (0.00-0.22 K/UL) 0.00 - 0.22 K/UL [facility] Basophils/100 WBC (Bld) Basophil 0.30 % (0-1 %) 0 - 1 % [facility] Differential cell count method Nom (Bld) Diff Type AUTO DIFF (Reference Range: not available) [facility] Eosinophils (Bld) [#/Vol] Abs Eos 0.08 K/UL (0-0.45 K/UL) 0 - 0.45 K/UL [facility] Eosinophils/100 WBC (Bld) Eosinophil 2.70 % (0-3 %) 0 - 3 % [facility] Erythrocyte distribution width (RBC) [Entitic vol] RDW SD 40.4 FL (37.0-54.0 FL) 37.0 - 54.0 FL [facility] Erythrocyte distribution width (RBC) [Ratio] RDW CV 13.0 % (11.7-15.0 %) 11.7 - 15.0 % [facility] Hematocrit (Bld) [Volume fraction] HCT 39.1 % L (41-50 %) Low 41 - 50 % [facility] Hemoglobin (Bld) [Mass/Vol] HGB 12.9 GM/DL L (13.5-16.5 GM/DL) Low 13.5 - 16.5 GM/DL [facility] Immature granulocytes (Bld) [#/Vol] Abs Imm [...] 100 FL S Monocytes (Bld) [#/Vol] Abs Wilbarger 0.34 K/UL (0-0.8 K/UL) 0 - 0.8 K/UL [facility] Monocytes/100 WBC (Bld) Monocyte 11.40 % H (0-8 %) High 0 - 8 % [facility] Neutrophils (Bld) [#/Vol] Abs.Neut.Calculated 1.70 K/UL (Reference Range: not available) Performed at [address] [address] [facility] Neutrophils (Bld) [#/Vol] Abs Neut 1.70 K/UL L (1.8-7.7 K/UL) Low 1.8 - 7.7 K/UL S Neutrophils.immature/ 100 WBC (Bld) Immature Neut % 0.30 % (0.0-1.0 %) 0.0 - 1.0 % [facility] Nucleated RBC/100 WBC (Bld) [Ratio] NRBCs 0 /100 WBC (0 /100 WBC) S Platelet mean volume (Bld) [Entitic vol] MPV 11.3 CU (7.0-12.6 CU) 7.0 - 12.6 CU [facility] Platelets (Bld) [#/Vol] PLT 148 K/UL L (150-450 K/UL) Low 150 - 450 K/UL [facility] RBC (Bld) [#/Vol] RBC 4.54 M/UL (4.5-5 .5 M/UL) 4.5 - 5.5 M/UL [facility] Segmented neutrophils/100 WBC (Bld) Granulocyte 57.40 % (50-70 %) 50 - 70 % [facility] WBC (Bld) [#/Vol] WBC 3.0 K/UL L (4.5- 11.0 K/UL) Low 4.5 - 11.0 K/UL [facility] No Panel Informationon 05-06 HS Troponin T Delta 0 (0-4 ) Performed at [address] [address] 0 - 4 [facility] XR Chest 2 Views (PA and lat) (Reference Range: not available) *FINAL Date of Service: 05/06/2021 12:10 Adm #: [id number] Reading Dr:SOHAIL MARINA Signoff Dr: SOHAIL MARINA [...] thoracic spine. Impression: No acute cardiopulmonary disease. [id number] This report has been produced using speech recognition. Original Interpreting Physician: SOHAIL MARINA M.D. Original Transcribed by/Date: [facility] May 06 2021 12:11P Original Electronically Signed by/Date: SOHAIL MARINA M.D. May 06 2021 12:11P Addendum Interpreting Physician: Addendum Transcribed by/Date: NO ADDENDUM Addendum Electronically Signed by/Date: [facility] HS Troponin T Delta No previous result Performed at [address] [address] (0-4 ) 0 - 4 S Laboratory - Chemistry and C hemistry - challengeon 05-02-2021 Anion gap [Moles/Vol] Anion Gap 14 MMOL/ L (0-19 MMOL/L) 0 - 19 MMOL/L S Bilirubin Ql (U) Bili NEGATIVE (NEG ) S Calcium [Mass/Vol] Calcium 8.8 MG/DL (8.5-10.4 MG/DL) 8.5 - 10.4 MG/DL S Chloride [Moles/Vol] Chloride 100 MMOL/L (97-107 MMOL/L) 97 - 107 MMOL/L S CO2 [Moles/Vol] Carbon Dioxide 21 MM OL/L [...] under 18 years of age. Performed at [address] [address] [facility] Glucose [Mass/Vol] Glucose 88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 Bili 0.4 Bilirubin, Serum Direct - Conjugated 0.1 ALKP 45 Alanine Aminotransferase, Serum 15 T Pro 6.5 Complete Blood Count + Differential Trending View [id number] 21:30:00 15-Apr-2021 12:22:00 White Blood Cell Count3.8 L 2.9 L Red Blood Cell Count4.32 L 4.49 L HGB12.1 L 12.5 L HCT36.8 L 39.0 L MCV85 87 MCHC32.9 32.1 IRX613 L 145 L RDW-CV13.3 13.4 Neutrophil %52.0 [...] Ratio, Plasma 1.0 Magnesium, Serum Trending View [id number]-[id number] 21:30:00 15-Apr-2021 12:22:00 Magnesium, Serum1.90 1.80 Comprehensive [...] Aneurysm Proceed (more content not included)... Normal [facility] Discharge Planning Zpfk9ic 0 04-17-2021 Discharge Planning Note2 Discharge Planning: [facility] 20[facility] Anticipated Discharge [id number] Discharge Planning HPI: [] 50-year-old white male [...] OBS status. All questions answered and addressed. Dianne Boss RN [facility]. Assessment: Discharge Planning Assessment [id number] Primary Contact Name and NumberPasarah Elam(1) Stated Reason for AdmissionLow Bp(1) Arrived Fromemergency department (1) Readmission Within the Last 30 Daysno previous admission in last 30 days Medication Adherence/Afford/Obtainy es [place] Lives Withalone(1) Living Arrangementsapartment(1) Prior Level of Functioningindependent Equipment Currently Used at [facility]; nutrition supplies; cane, quad/straight(1) Resource/Environmental Concernsreliable transportation(1) Transportation Concernscar, none(1) [facility] Services Anticipated at Transitionmedical specialist; spring encaser(1) Anticipated Changes Related to Illnessnone Equipment Needed After Dischargenone Anticipated Discharge Facility/Level of Care NeedsHome Electronic Signatures: Ema Boss (RN) (Signed 17-Apr-2021 15:19) Authored: Discharge Planning, Assessment Last Updated: 17-Apr-2021 15:19 by Ema Boss (RN) References: 1. Data Referenced From Patient Profile - Adult v2 17-Apr-2021 04:20 Normal [facility] Discharge Fshobah5js 021 Discharge Profile2 Discharge Orders: Anticipated Discharge Date: Anticipated Discharge [id number]-Ppy-1906 Hospital Providers: Provider RoleProvider Name Carlos Acosta Joel DNAR: DNAR Status: none Activity: activity as tolerated. Diet: Dietresume normal diet Provider FINAL REVIEW of Orders: Final Review: Final Review of Medication Reconciliation and Orders Completedby DAE Warren at 17-Apr-2021 11:03:39 Appointments: Follow-Up Appointment 01: Physician/Dept/Simone smith PCP Reason for Referralhospital follow up Call to Schedule in1 week Follow-Up Appointment 02: Physician/Dept/Get Baugh CNP, Gastroenterology Reason for Referralhospital follow up Scheduled Date/Wgsg96-Mhy-6475 11:00 [place] [address] Phone [phone] CommentsPlease bring your insurance card, photo id, a list of medication in the original bottle, any co-pays you may have, and the discharge summary Electronic Signatures: Laura Carvajal (GASOLINE ENGINE INSPECTOR-STRATEGIC INTELLIGENCE OFFICER) (Signed 17-Apr-2021 11:03) Authored: Discharge Orders, Provider FINAL REVIEW of Orders, Appointments, 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 Summary Britney Mccallum (PT ACC REP) (Signed 17-Apr-2021 15:05) Authored: Discharge Orders, Appointments Last Updated: 17-Apr-2021 15:05 by Britney Mccallum (PT ACC REP) [place] No Panel Informationon 04-17 [email or web address]?RetrieveTestByDateTim e?TmjujcgUJ=[id number]&Da te=17-04-2021&Time=03%3a 44%3a07%3a00&TestType=EC G&Site=2&OutputType=PDF& Ext=PDF MP-[facility] [address] Practice Work Phone: Normal sinus rhythm MP-Co nnor [facility] [address] Practice Work Phone: [phone] Abnormal MP-[facility] [address] Practice Work Phone: [phone] MP-[facility] [address] Practice Work Phone: [phone] MP-[facility] [address] Practice Work Phone: [phone] MP-[facility] [address] Practice Work Phone: [phone] MP-[facility]ush [facility] [address] Practice Work Phone: [phone] MP-[facility] [address] Practice Work Phone: [phone] MP-[facility] [address] Practice Work Phone: [phone] MP-[facility] [address] Practice Work Phone: [phone] MP-[facility]ush [facility] [address] Practice Work Phone: [phone] MP-[facility] [address] Practice Work Phone: [phone] MP-[facility] [address] Practice Work Phone: [phone] MP-[facility] [address] Practice Work Phone: [phone] MP-[facility] [address] Practice Work Phone: [phone] MP-[facility]ush [facility] [address] Practice Work Phone: [phone] MP-[facility]ush [facility] [address] Practice Work Phone: [phone] Order Reconciliationon 04-17 Order Reconciliation Page 1 Discharge Reconciliation Document Reconciliation Type: Discharge requested on behalf of Laura Carvajal (Advanced Practice Nurse) done by Laura Carvajal (GASOLINE ENGINE INSPECTOR-[facility]) Discharge - Reconciliation: 17-Apr-2021 10:59 by: Laura Carvajal (GASOLINE ENGINE INSPECTOR-[facility]) Home Medications EnteredHOME MEDICATIONS AT DISCHARGE DateReconciliation [...] Discharge Discharge Diagnosis< R07.9 Chest pain Discharge Provider, Carlos Carrillo Discharge Disposition : .Home Condition at Discharge: [...] be shared with your follow-up providers (doctor, laboratory monitor, physical therapist, etc.). Guidelines for a Healthy Lifestyle All Active Home Medications at time of Discharge Reconciliation: 17-Apr-2021 10:59 cloNIDine 0.1 mg oral tablet 1 tab(s) orally once a day, and As Needed for BP above 140/90 Discharge Discharge Diagnosis< R07.9 Chest pain Discharge Provider, Carlos Carrillo Discharge Disposition : .Home Condition at Discharge: [...] be shared with your follow-up providers (doctor, laboratory monitor, physical therapist, etc.). Guidelines for a Healthy Lifestyle losartan 50 mg oral tablet 1 tab(s) orally once a day metoprolol succinate 25 mg oral tablet, extended release 1 tab(s) orally once a day pantoprazole 40 mg oral delayed release tablet 1 tab(s) orally once a day Normal [facility] Order Reconciliation Page 1 Admission Reconciliation Document Reconciliation Type: ED to Observation requested on behalf of Carlos Carrillo (Physician) done by Carlos Carrillo) ED to Observation - Partial Reconciliation: 17-Apr-2021 00:07 by: Carlos Carrillo) ED to Observation - AutoLinked: 17-Apr-2021 01:30 by: Karina Collins (ADMIN) ED to Observation - Reconciliation: 17-Apr-2021 [...] day, and As Needed for BP above 140/[id number]-[id number] UNKNOWN Reviewed and Held dexamethasone 4 mg oral tablet 1 tab(s) orally once a day 17-Apr-2021Loaking Reviewed and Held docusate sodium 100 mg oral tablet 1 tab(s) orally 2 times a day 17-Apr-2021 NoLoerTaking Reviewed and Held hydrALAZINE 10 mg oral tablet 1 tab(s) orally once a day 17-Apr-2021 Reviewed and Held lidocaine 2% mucous membrane solution 5 milliliter(s) mucous membrane every 4 hours, As Needed for upset stomach 17-Apr-2021 Reviewed and Held losartan 50 mg oral tablet 1 tab(s) orally once a [id number] 1 AM Losartan Tablet (COZAAR)DOSE = 50 mg Oral Dailylosartan 50 mg oral tablet continued as the inpatient order Losartan Melatonin 5 mg oral tablet 1 tab(s) orally once a day (at bedtime) 17-Apr-2021 Reviewed and Held metoprolol succinate 25 mg oral tablet, extended release 1 tab(s) orally once a [id number] 1 AM Metoprolol Succinate Extended Release Tablet, Extended Release (TOPROL-XL)DOSE = 25 mg Oral Dailymetoprolol succinate 25 mg oral tablet, extended release continued as the inpatient order Metoprolol Succinate Extended Release Multiple Vitamins oral tablet 1 tab(s) orally once a day 17-Apr-2021 Reviewed and Held pantoprazole 40 mg oral delayed release tablet 1 tab(s) orally once a day 17-Apr-2021 Pantoprazole Enteric Coated Tablet (PROTONIX)DOSE = 40 mg Oral Daily Before First MealNoLongerTaking pantoprazole 40 mg oral delayed release tablet continued as the inpatient order Pantoprazole pantoprazole 40 mg oral delayed release tablet 1 tab(s) orally once a day 17-Apr-2021aking Reviewed and Held pantoprazole 40 mg oral delayed release tablet 1 tab(s) orally once a day [id number] AM Reviewed and Held sucralfate 1 g/10 [...] 4 Hours, PRN Nausea and/or Vomiting Normal [facility] Patient Profile - Adult v2on 04-17-2021 Patient Profile - Adult v2 Profile: Initial Info: How to be AddressedRay(1) Spoken Language PreferredEnglish (2) Source of Informationpatient Stated Reason for AdmissionLow Bp Primary Contact Name and NumberPatricdevante Elam Other Contact Names and NumbersEugene Papa Wants Family/Rep Notified of Admissionyes, primary contact Notify PCPnotify PCP Informed of Patient Visiting Rightsyes Limitations on Visitors/Phone Callsnone Temporary Family Living Arrangements (While Hospitalized)none needed [facility] To in Past 90 Daysnone Employment Statusemployed Current or Previous Serviceactive duty, past Service Experienceexposed to hazardous materials Patient Belongingsremains with patient Patient Belongings Remaining with Patientclothing Medications Brought to Hospitalno General Health: Blood Avoidance/Restrictionsno ne Previous Transfusion Reactionno Equipment Currently Used at Homeba bench; nutrition supplies; cane, quad/straight Normal Bedtime/Wake Gnlm5jc/9am Sleep Aids/Routinemeditation; music Feel Rested Upon Awakeningyes Weight in kg85.7 kilogram(s)(3) Weight in sjx611.9 pound(s) Weight Methodactual (measured) (4) Scale Typestanding Height in cm165.1 centimeter(s) Height in feet5 feet(3) Height in inches5 inch(es)(3) Height Methodstated BMI (kg/m2)31.44 square meter RSP Based Care: Recent Change in Mood/Behaviordenies Major Change/Loss/Stressor/Fea rsmedical condition, self Techniques to [place] with Loss/Stress/Changemedita tion; substance use How would [...] this hospitalizationWould like to speak with a Java Swing Developer Is there anything we need to know to best care for youWants to be seen by ABBY Zimmer/davon Substance: Smoking Statusoccasional user (use that is [...] Living Arrangementsapartment Services Anticipated at Transitionmedical specialist; spring encaser [facility]ticipated [facility] Significant IndicatorsComplete Information Review: Allergies, Home Meds and Significant Events have been Reviewed and Verified with Patient/Familyyes ALLERGY, INTOLERANCE, ADVERSE EVENT: Allergies: Erythromycin Base: Drug, Unknown, Active caffine: Food, Other, Active Cipro: Drug, Unknown, Active Intolerances: polyethylene glycol 3350: Drug, GI Upset, Active Electronic Signatures: Mahsa Mckeon (BRIONNA) (Signed 17-Apr-2021 05:30) Authored: Initial Info, General Health, RSP Based Care, Substance, Health Mgmt, Relationship/Environ, Additional Information Last Updated: 17-Apr-2021 05:30 by Mahsa Mckeon (BRIONNA) References: 1. Data Referenced From Patient Profile - Adult v2 12-Feb-2021 22:56 2. Data Referenced From Triage - ED 04-Apr-2021 09:34 3. Data Referenced From 1. Vital Signs 17-Apr-2021 04:12 4. Data Referenced From 1. Vital Signs 17-Apr-2021 03:54 Normal [facility] Provider Note - ED v2on 07-2 6-2021 Provider Note - ED v2 Provider Note [...] Prehospital and initial EKG transmitted to the professional development manager who reviewed EKGs and at this time [...] Name:Renal art (more content not included)... Normal [facility] TROPONIN Ion 04-17-2021 Troponin I.cardiac [Mass/Vol] ng/mL Normal 0.00 - 0.03 [facility] Comment on above: Result Comment: LESS [...] is performed using different testing methodology at [facility] than at other [facility]. Direct result comparisons should only be made within the same method. Performed By: #### T ROP2 #### [facility] [address]TR [address] [place] [address] TROPONIN I Canceled Normal [facility] Comment on above: Order Comment: TEST [...] is performed using different testing methodology at [facility] than at other [facility]. Direct result comparisons should only be made within the same method. Performed By: #### T ROP2 ####[facility] [id number] [place] [address] Troponin I, Serumon 07-26-20 21 Troponin I.cardiac [Mass/Vol] ng/mL See Below [facility]-Gastroente patoged-Say l 6 [facility] Work Phone: Comment on above: Reference Range: [...] is performed using different testing methodology at [facility] than at other [facility]. Direct result comparisons should only be made within the same method. BASIC METABOLIC PANEL 03-24 Anion gap [Moles/Vol] 15 mmol/L Normal 10 - 20 [facility] Comment on above: Performed By: #### B MP ####[facility] [place] [address] Calcium [Mass/Vol] 8.7 mg/dL Normal 8.6 - 10.3 [facility] Comment on above: Performed By: #### B MP ####[facility] [place] [address] Chloride [Moles/Vol] 103 mmol/L Normal 98 - 107 [facility] Comment on above: Performed By: #### B MP ####[facility] [place] [address] Creatinine [Mass/Vol] 0.79 mg/dL Normal 0.50 - 1.30 [facility] Comment on above: Performed By: #### B MP ####[facility] [id number] [place] [address] GFR- AM. >60 Normal >60 [facility] Comment on above: Result Comment: CALC ULATIONS OF ESTIMATED GFR ARE PERFORMED USING THE MDRD STUDY EQUATION FOR THE IDMS-TRACEABLE CREATININE METHODS. CLIN CHEM 2007;53:766-72 Performed By: #### B MP ####[facility] [id number] [place] [address] GFR-NON AM. >60 Normal >60 [facility] Comment on above: Performed By: #### B MP ####[facility] [id number] [place] [address] Glucose [Mass/Vol] 78 mg/dL Normal 74 - 99 [facility] Comment on above: Performed By: #### B MP ####[facility] [place] [id number] HCO3 (Bld) [Moles/Vol] 24 mmol/L Normal 21 - 32 [facility] Comment on above: Performed By: #### B MP ####[facility] [place] [address] Potassium [Moles/Vol] 3.6 mmol/L Normal 3.5 - 5.3 [facility] Comment on above: Performed By: #### B MP ####[facility] [place] [id number] Sodium [Moles/Vol] 138 mmol/L Normal 136 - 145 [facility] Comment on above: Performed By: #### B MP ####[facility] [place] [id number] Urea nitrogen [Mass/Vol] 16 mg/dL Normal 6 - 23 [facility] Comment on above: Performed By: #### B MP ####[facility] [place] [id number] CBC AND DIFFERENTIALon 04-16 % AUTOMATED IMMATURE GRAN 0.3 % Normal 0.0 - 0.9 [facility] Comment on above: Result Comment: Kath ture Granulocyte Count (IG) includes promyelocytes, myelocytes and metamyelocytes but does not include bands. Percent differential counts (%) should be interpreted in the context of the absolute cell counts (cells/L). Performed By: #### C BCDF ####[facility] [place] [id number] Basophils (Bld) [#/Vol] 0.02 10*3/uL Normal 0.00 - 0.10 [facility] Comment on above: Performed By: #### C BCDF ####[facility] [id number] [place] [address] Basophils/100 WBC (Bld) 0.5 % Normal 0.0 - 2.0 [facility] Comment on above: Performed By: #### C BCDF ####[facility] [id number] [place] [address] Eosinophils (Bld) [#/Vol] 0.09 10*3/uL Normal 0.00 - 0.70 [facility] Comment on above: Performed By: #### C BCDF ####[facility] [id number] [place] [address] Eosinophils/100 WBC (Bld) 2.4 % Normal 0.0 - 6.0 [facility] Comment on above: Performed By: #### C BCDF ####[facility] [id number] [place] [address] Erythrocyte distribution width (RBC) [Ratio] 13.3 % Normal 11.5 - 14.5 [facility] Comment on above: Performed By: #### C BCDF ####[facility] [id number] [place] [address] Hematocrit (Bld) [Volume fraction] 36.8 % Low 41.0 - 52.0 [facility] Comment on above: Performed By: #### C BCDF ####[facility] [id number] [place] [address] Hemoglobin (Bld) [Mass/Vol] 12.1 g/dL Low 13.5 - 17.5 [facility] Comment on above: Performed By: #### C BCDF ####[facility] [id number] [place] [address] Lymphocytes (Bld) [#/Vol] 1.27 10*3/uL Normal 1.20 - 4.80 [facility] Comment on above: Performed By: #### C BCDF ####[facility] [id number] [place] [address] Lymphocytes/100 WBC (Bld) 33.9 % Normal 13.0 - 44.0 [facility] Comment on above: Performed By: #### C BCDF ####[facility] [place] [address] MCHC (RBC) [Mass/Vol] 32.9 g/dL Normal 32.0 - 36.0 [facility] Comment on above: Performed By: #### C BCDF ####[facility] [place] [address] MCV (RBC) [Entitic vol] 85 fL Normal 80 - 100 [facility] Comment on above: Performed By: #### C BCDF ####[facility] [place] [address] Monocytes (Bld) [#/Vol] 0.41 10*3/uL Normal 0.10 - 1.00 [facility] Comment on above: Performed By: #### C BCDF ####[facility] [place] [address] Monocytes/100 WBC (Bld) 10.9 % Normal 2.0 - 10.0 [facility] Comment on above: Performed By: #### C BCDF ####[facility] [id number] [place] [address] Neutrophils (Bld) [#/Vol] 1.95 10*3/uL Normal 1.20 - 7.70 [facility] Comment on above: Performed By: #### C BCDF ####[facility] [id number] [place] [address] Neutrophils/100 WBC (Bld) 52.0 % Normal 40.0 - 80.0 [facility] Comment on above: Performed By: #### C BCDF ####[facility] [place] [address] Platelets (Bld) [#/Vol] 149 10*3/uL Low 150 - 450 [facility] Comment on above: Performed By: #### C BCDF ####[facility] [place] [address] RBC 4.32 x10E12/L Low 4.50 - 5.90 [facility] Comment on above: Performed By: #### C BCDF ####[facility] [id number] [place] [address] WBC (Bld) [#/Vol] 3.8 10*3/uL Low 4.4 - 11.3 [facility] Comment on above: Performed By: #### C BCDF ####[facility] [id number] [place] [address] CHEST 1 VIEWon 04-16-2021 CHEST 1 VIEW Patient Name: HOSEA ALVAREZ STUDY: CHEST 1 VIEW; 04/16/2021 9:48 pm INDICATION: Chest Pain. COMPARISON: April 13, [address] Same day CT angiogram ACCESSION NUMBER(S): [id number] ORDERING CLINICIAN: GUILLERMO TONY FINDINGS: AP radiograph of the chest was provided. Overlying cardiac leads CARDIOMEDIASTINAL SILHOUETTE: Unchanged cardiomediastinal silhouette. LUNGS: Lungs are clear. ABDOMEN: No remarkable upper abdominal findings. BONES: No acute osseous changes. IMPRESSION: 1. No evidence of acute cardiopulmonary process. Electronically signed by: SANTA WYA MD Normal [facility] CT Angio Cheston 04-16-2021 CTA Chest vessels Please click on the link to view the study images Normal [facility]Gastro[facility] rology-Bolwel l 6 I Work Phone: Complete Blood Count + Diffe [...] MG-Gastroente rology-Bolwel l 6 [facility] Work Phone: [phone] Comment on above: Reference Range: 13. 0 - 44.0 MCHC (RBC) [Mass/Vol] 32.9 g/dL See Below [facility]- Gastroente rology-Bolwel l 6 [facility] Work Phone: [phone] Comment on above: Reference Range: 32. 0 - 36.0 MCV (RBC) [Entitic vol] 85 fL 80 - 100 [facility]astro[facility] rology-Bolwel l 6 [facility] Work Phone: [phone] Monocytes/100 WBC (Bld) 10.9 % 2.0 - 10.0 [facility]astro[facility] rology-Bolwel l 6 [facility] Work Phone: [phone] Neutrophils/100 WBC (Bld) 52.0 % See Below [...] Count + Differential 0.02 {x10E9/L} See Below [address] Work Phone: [phone] Comment on above: Reference Range: 0.0 0 - 0.10 Complete Blood Count + Differential 0.09 {x10E9/L} See Below [facility] 6 [facility] Work Phone: Comment on above: Reference Range: 0.0 0 - 0.70 Complete Blood Count + Differential 0.41 {x10E9/L} See Below [address] Work Phone: Comment on above: Reference Range: 0.1 0 - 1.00 Complete Blood Count + Differential 1.27 {x10E9/L} See Below [address] Work Phone: Comment on above: Reference Range: 1.2 0 - 4.80 Complete Blood Count + Differential 1.95 {x10E9/L} See Below [address] Work Phone: Comment on above: Reference Range: 1.2 0 - 7.70 Complete Blood Count + Differential 2.4 % 0.0 - 6.[address] Work Phone: Complete Blood Count + Differential 0.3 % 0.0 - 0.[address] Work Phone: Comment on above: Immature Granulocyte Count (IG) includes promyelocytes, myelocytes and metamyelocytes but does not include bands. Percent differential counts (%) should be interpreted in the context of the absolute cell counts (cells/L). Coronavirus 2019 RNA by PCR, Screening Asymptomticon 04-16-2021 Coronavirus 2019 RNA by PCR, Screening Asymptomtic Not detected Normal See Below [facility] 6 [facility] Work Phone: Comment on above: SOURCE: Nasal, Nasop haryngealReference Range: Not Detected.This test has received [facility] Emergency Use Authorization (EUA) and has been verified by [facility]. This test is only authorized for the duration of time that circumstances exist to justify the authorization of the emergency use of in vitro diagnostic tests for the detection of SARS-CoV-2 virus and/or diagnosis of COVID-19 infection under section 564(b)(1) of the Act, 21 U.S.C. 360bbb-3(b)(1), unless the authorization is terminated or revoked sooner. [facility] is certified under CLIA-88 as qualified to perform high complexity testing. Testing is performed in the [facility] laboratory located at [address] [place] [address].SARS-CoV-2/Flu/RSV Multiplex Test: Fact sheet for providers: https://www.fda.gov/media/860883/downloadFact sheet for patients: https://www.fda.gov/media/850883/download HEPATIC FUNCTION PANELon Albumin [Mass/Vol] 4.4 g/dL Normal 3.4 - 5.0 [facility] Comment on above: Performed By: #### H EPFP ####[facility] [id number] [place] [address] ALP [Catalytic activity/Vol] 45 U/L Normal 33 - 120 [facility] Comment on above: Performed By: #### H EPFP ####[facility] [id number] [place] [id number] ALT [Catalytic activity/Vol] 15 U/L Normal 10 - 52 [facility] Comment on above: Result Comment: Yanni ents treated with Sulfasalazine may generate falsely decreased results for ALT. Performed By: #### H EPFP ####[facility] [id number] [place] [address] AST [Catalytic activity/Vol] 14 U/L Normal 9 - 39 [facility] Comment on above: Performed By: #### H EPFP ####[facility] [id number] [place] [address] Bilirubin [Mass/Vol] 0.4 mg/dL Normal 0.0 - 1.2 [facility] Comment on above: Performed By: #### H EPFP ####[facility] [id number] [place] [address] Bilirubin.indirect [Mass/Vol] 0.1 mg/dL Normal 0.0 - 0.3 [facility] Comment on above: Performed By: #### H EPFP ####[facility] [id number] [place] [address] Protein [Mass/Vol] 6.5 g/dL Normal 6.4 - 8.2 [facility] Comment on above: Performed By: #### H EPFP ####[facility] [id number] [place] [address] Hepatic Function Panelon Albumin BCP dye [Mass/Vol] [...] [facility]-Gastroente rology-Bolwel l 6 [facility] Work Phone: Bilirubin [Mass/Vol] 0.4 mg/dL 0.0 - 1.2 [facility]-G astroente rology-Bolwel l 6 [facility] Work Phone: Bilirubin.direct [Mass/Vol] 0.1 mg/dL 0.0 - 0.3 [facility]astro[facility] rology-Bolwel l 6 [facility] Work Phone: Protein [Mass/Vol] 6.5 g/dL 6.4 - 8.2 MG-Gas troente rology-Bolwel l 6 I Work Phone: Laboratory - Chemistry and C hemistry - challengeon 04-16-2021 Anion gap [Moles/Vol] 15 mmol/L 10 - 20 [facility] Gastro[facility] rology-Bolwel l 6 I Work Phone: Calcium [Mass/Vol] 8.7 mg/dL 8.6 - 10.3 [facility]-Gas troente rology-Bolwel l 6 I Work Phone: Chloride [Moles/Vol] 103 mmol/L 98 - 107 [facility]-G astroente rology-Bolwel l 6 I Work Phone: CO2 [Moles/Vol] 24 mmol/L 21 - 32 [facility]-Gastro ente rology-Bolwel l 6 I Work Phone: Creatinine [Mass/Vol] 0.79 mg/dL See Below [facility]- Gastroente rology-Bolwel l 6 I Work Phone: Comment on above: Reference Range: 0.5 0 - 1.30 Glucose [Mass/Vol] 78 mg/dL 74 - 99 [facility]-Gas troente rology-Bolwel l 6 I Work Phone: Potassium [Moles/Vol] 3.6 mmol/L 3.5 - 5.3 [facility]astro[facility] rology-Bolwel l 6 [facility] Work Phone: Sodium [Moles/Vol] 138 mmol/L 136 - 145 [facility]Gas troente rology-Bolwel l 6 I Work Phone: Urea nitrogen [Mass/Vol] 16 mg/dL 6 - 23 [facility]astro[facility] rology-Bolwel l 6 [facility] Work Phone: Laboratory - Coagulationon 0 7-25-2021 INR Coag (PPP) [Relative time] 1.0 {INR} 0.9 - 1.1 [facility]-Bolwel l 6 [facility] Work Phone: PT Coag (PPP) [Time] 11.5 s See Below [facility]-G astroente rology-Bolwel l 6 [facility] Work Phone: Comment on above: Reference Range: 10. 1 - 13.3 MAGNESIUMon 04-16-2021 Magnesium [Mass/Vol] 1.90 mg/dL Normal 1.60 - 2.40 [facility] Comment on above: Performed By: #### M G ####[facility] [id number] [place] [address] Magnesium, Serumon Magnesium [Mass/Vol] 1.90 mg/dL See [...] THE IDMS-TRACEABLE CREATININE METHODS. CLIN CHEM 2007;53:766-72 [email or web address] [email or web address]/[email or web address] ll?RetrieveTestByDateTim e?ZmfjhktCS=[id number]&Da te=16-04-2021&Time=21%3a 21%3a24%3a00&TestType=EC G&Site=2&OutputType=PDF& Ext=PDF Shanae Alvarado MD Practice Work Phone: Normal sinus rhythm Leroy Alvarado MD Practice Work Phone: Normal Shanae [facility] [address] MD Practice Work Phone: [phone] [facility] [address] [place] Practice Work Phone: [phone] MP-[facility] 4480 MD Practice Work Phone: [phone] MP-[facility] [address] [place] Practice Work Phone: [phone] MP-[facility] 44[address] MD Practice Work Phone: [phone] MP-[facility] [address] [place] Practice Work Phone: [phone] MP-[facility] [address] [place] Practice Work Phone: [phone] MP-[facility] [address] [place] Practice Work Phone: [phone] MP-[facility] 44[address] [place] Practice Work Phone: [phone] MP-[facility] [address] [place] Practice Work Phone: [phone] MP-[facility] [address] [place] Practice Work Phone: [phone] MP-[facility] [address] [place] Practice Work Phone: [phone] MP-[facility] [address] [place] Practice Work Phone: [phone] MP-[facility] [address] [place] Practice Work Phone: [phone] [facility] [address] [place] Practice Work Phone: PT/INRon 04-16-2021 PT Coag (PPP) [Time] 11.5 s Normal 10.1 - 13.3 [facility] Comment on above: Performed By: #### P TINR ####[facility] [id number] [place] [address] PT, INR 1.0 Normal 0.9 - 1.1 [facility] Comment on above: Performed By: #### P TINR ####[facility] [id number] [place] [address] Radiologyon 04-16-2021 XR Chest Single view Normal [facility]-G astroente rology-Bolwel l 6 [facility] Work Phone: TROPONIN Ion 04-16-2021 Troponin I.cardiac [Mass/Vol] ng/mL Normal 0.00 - 0.03 [facility] Comment on above: Result Comment: LESS [...] is performed using different testing methodology at [facility] than at other [facility]. Direct result comparisons should only be made within the same method. Performed By: #### T ROP2 ####[facility] [id number] [place] [address] TROPONIN I Canceled Normal [facility] Comment on above: Order Comment: TEST [...] is performed using different testing methodology at [facility] than at other [facility]. Direct result comparisons should only be made within the same method. Performed By: #### T ROP2 ####[facility] [id number] [place] [address] Troponin I, Serumon 04-16-20 21 Troponin I.cardiac [Mass/Vol] ng/mL See Below [facility]-Gastroente rology-Bolwel l 6 [facility] [...] is performed using different testing methodology at [facility] than at other [facility]. Direct result comparisons should only be made within the same method. CBC AND DIFFERENTIALon 04-15 % AUTOMATED IMMATURE GRAN 0.3 % Normal 0.0 - 0.9 [facility] Comment on above: Result Comment: Kath ture Granulocyte Count (IG) includes promyelocytes, myelocytes and metamyelocytes but does not include bands. Percent differential counts (%) should be interpreted in the context of the absolute cell counts (cells/L). Performed By: #### C BCDF ####[facility] [id number] [place] [address] Basophils (Bld) [#/Vol] 0.02 10*3/uL Normal 0.00 - 0.10 [facility] Comment on above: Performed By: #### C BCDF ####[facility] [id number] [place] [address] Basophils/100 WBC (Bld) 0.7 % Normal 0.0 - 2.0 [facility] Comment on above: Performed By: #### C BCDF ####[facility] [id number] [place] [address] Eosinophils (Bld) [#/Vol] 0.05 10*3/uL Normal 0.00 - 0.70 [facility] Comment on above: Performed By: #### C BCDF ####[facility] [id number] [place] [address] Eosinophils/100 WBC (Bld) 1.7 % Normal 0.0 - 6.0 [facility] Comment on above: Performed By: #### C BCDF ####[facility] [id number] [place] [address] Erythrocyte distribution width (RBC) [Ratio] 13.4 % Normal 11.5 - 14.5 [facility] Comment on above: Performed By: #### C BCDF ####[facility] [id number] [place] [address] Hematocrit (Bld) [Volume fraction] 39.0 % Low 41.0 - 52.0 [facility] Comment on above: Performed By: #### C BCDF ####[facility] [id number] [place] [address] Hemoglobin (Bld) [Mass/Vol] 12.5 g/dL Low 13.5 - 17.5 [facility] Comment on above: Performed By: #### C BCDF ####[facility] [place] [address] Lymphocytes (Bld) [#/Vol] 0.74 10*3/uL Low 1.20 - 4.80 [facility] Comment on above: Performed By: #### C BCDF ####[facility] [place] [address] Lymphocytes/100 WBC (Bld) 25.4 % Normal 13.0 - 44.0 [facility] Comment on above: Performed By: #### C BCDF ####[facility] [id number] [place] [address] MCHC (RBC) [Mass/Vol] 32.1 g/dL Normal 32.0 - 36.0 [facility] Comment on above: Performed By: #### C BCDF ####[facility] [id number] [place] [address] MCV (RBC) [Entitic vol] 87 fL Normal 80 - 100 [facility] Comment on above: Performed By: #### C BCDF ####[facility] [id number] [place] [address] Monocytes (Bld) [#/Vol] 0.35 10*3/uL Normal 0.10 - 1.00 [facility] Comment on above: Performed By: #### C BCDF ####[facility] [id number] [place] [address] Monocytes/100 WBC (Bld) 12.0 % Normal 2.0 - 10.0 [facility] Comment on above: Performed By: #### C BCDF ####[facility] [id number] [place] [address] Neutrophils (Bld) [#/Vol] 1.74 10*3/uL Normal 1.20 - 7.70 [facility] Comment on above: Performed By: #### C BCDF ####[facility] [id number] [place] [address] Neutrophils/100 WBC (Bld) 59.9 % Normal 40.0 - 80.0 [facility] Comment on above: Performed By: #### C BCDF ####[facility] [id number] [place] [address] Platelets (Bld) [#/Vol] 145 10*3/uL Low 150 - 450 [facility] Comment on above: Performed By: #### C BCDF ####[facility] [id number] [place] [address] RBC 4.49 x10E12/L Low 4.50 - 5.90 [facility] Comment on above: Performed By: #### C BCDF ####[facility] [id number] [place] [address] WBC (Bld) [#/Vol] 2.9 10*3/uL Low 4.4 - 11.3 [facility] Comment on above: Performed By: #### C BCDF ####[facility] [id number] [place] [address] CHEST 1 VIEWon 04-15-2021 CHEST 1 VIEW Patient Name: HOSEA ALVAREZ STUDY: CHEST 1 VIEW; 04/15/2021 12:30 pm INDICATION: Chest pain. COMPARISON: None. ACCESSION NUMBER(S): [id number] ORDERING CLINICIAN: CIERRA GIMENEZ FINDINGS: CARDIOMEDIASTINAL SILHOUETTE: Cardiomediastinal silhouette is normal in size and configuration. LUNGS: Lungs are clear. ABDOMEN: No remarkable upper abdominal findings. BONES: No acute osseous changes. IMPRESSION: 1. No evidence of acute cardiopulmonary process. Electronically signed by: RAS DE LA PAZ MD Normal [facility] COMPREHENSIVE PANELon 2020 Albumin [Mass/Vol] 4.2 g/dL Normal 3.4 - 5.0 [facility] Comment on above: Performed By: #### C MP ####[facility] [place] [id number] ALP [Catalytic activity/Vol] 49 U/L Normal 33 - 120 [facility] Comment on above: Performed By: #### C MP ####[facility] [place] [address] ALT [Catalytic activity/Vol] 15 U/L Normal 10 - 52 [facility] Comment on above: Result Comment: Yanni ents treated with Sulfasalazine may generate falsely decreased results for ALT. Performed By: #### C MP ####[facility] [place] [address] Anion gap [Moles/Vol] 11 mmol/L Normal 10 - 20 [facility] Comment on above: Performed By: #### C MP ####[facility] [place] [address] AST [Catalytic activity/Vol] 15 U/L Normal 9 - 39 [facility] Comment on above: Performed By: #### C MP ####[facility] [place] [address] Bilirubin [Mass/Vol] 0.4 mg/dL Normal 0.0 - 1.2 [facility] Comment on above: Performed By: #### C MP ####[facility] [place] [address] Calcium [Mass/Vol] 8.9 mg/dL Normal 8.6 - 10.3 [facility] Comment on above: Performed By: #### C MP ####[facility] [place] [address] Chloride [Moles/Vol] 104 mmol/L Normal 98 - 107 [facility] Comment on above: Performed By: #### C MP ####[facility] [id number] [place] [address] Creatinine [Mass/Vol] 1.04 mg/dL Normal 0.50 - 1.30 [facility] Comment on above: Performed By: #### C MP ####[facility] [place] [address] GFR- AM. >60 Normal >60 [facility] Comment on above: Result Comment: CALC ULATIONS OF ESTIMATED GFR ARE PERFORMED USING THE MDRD STUDY EQUATION FOR THE IDMS-TRACEABLE CREATININE METHODS. CLIN CHEM 2007;53:766-72 Performed By: #### C MP ####[facility] [id number] [place] [address] GFR-NON AM. >60 Normal >60 [facility] Comment on above: Performed By: #### C MP ####[facility] [id number] [place] [address] Glucose [Mass/Vol] 99 mg/dL Normal 74 - 99 [facility] Comment on above: Performed By: #### C MP ####[facility] [id number] [place] [address] HCO3 (Bld) [Moles/Vol] 28 mmol/L Normal 21 - 32 [facility] Comment on above: Performed By: #### C MP ####[facility] [id number] [place] [address] Potassium [Moles/Vol] 4.0 mmol/L Normal 3.5 - 5.3 [facility] Comment on above: Performed By: #### C MP ####[facility] [place] [address] Protein [Mass/Vol] 6.7 g/dL Normal 6.4 - 8.2 [facility] Comment on above: Performed By: #### C MP ####[facility] [place] [address] Sodium [Moles/Vol] 139 mmol/L Normal 136 - 145 [facility] Comment on above: Performed By: #### C MP ####[facility] [id number] [place] [address] Urea nitrogen [Mass/Vol] 17 mg/dL Normal 6 - 23 [facility] Comment on above: Performed By: #### C MP ####[facility] [id number] [place] [address] Complete Blood Count + Diffe neiltialon 04-15-2020 Basophils/100 WBC (Bld) 0.7 % 0.0 - 2.0 [facility] Work Phone: Erythrocyte distribution width (RBC) [Ratio] 13.4 % See Below [facility] Work Phone: [phone] Comment on above: Reference Range: 11. 5 [...] 6 [facility] Work Phone: Neutrophils/100 WBC (Bld) 59.9 % See Below [facility] Work Phone: Comment on above: Reference Range: 40. 0 - 80.0 Platelets (Bld) [#/Vol] 145 10*3/uL below low threshold 150 - 450 [facility] Work Phone: RBC (Bld) [#/Vol] 4.49 {x10E12/L} below low [...] [facility] Work Phone: [phone] Comment on above: Reference Range: 1.2 0 - 7.70 Complete Blood Count + Differential 1.7 % 0.0 - 6.0 [facility] Work Phone: [phone] Complete Blood Count + Differential 0.3 % 0.0 - 0.9 [facility] Work Phone: [phone] Comment on above: Immature Granulocyte Count (IG) includes promyelocytes, myelocytes and metamyelocytes but does not include bands. Percent differential counts (%) should be interpreted in the context of the absolute cell counts (cells/L). EMR ADDONon 04-15-2021 ADDON CONFIRMATION REQUEST REC'D Normal [facility] Comment on above: Performed By: #### E MRAD ####[facility] [id number] [place] [address] Laboratory - Chemistry and C hemistry - challengeon 04-15-2021 Albumin BCP dye [Mass/Vol] 4.2 g/dL 3.4 - 5.0 [facility] Work Phone: [phone] ALP [Catalytic activity/Vol] 49 U/L 33 - 120 [facility] Work Phone: [phone] ALT With P-5'-P [Catalytic activity/Vol] 15 U/L 10 - 52 [facility] Work Phone: [phone] Comment on above: Patients treated wit h Sulfasalazine may generate falsely decreased results for ALT. Anion gap [Moles/Vol] 11 mmol/L 10 - 20 [facility] Work Phone: [phone] AST With P-5'-P [Catalytic activity/Vol] 15 U/L 9 - 39 [facility] Work Phone: [phone] Bilirubin [Mass/Vol] 0.4 mg/dL 0.0 - 1.2 [facility] astroente [facility]log[facility]ol[facility] 6 [facility] Work Phone: [phone] Calcium [Mass/Vol] 8.9 mg/dL 8.6 - 10.3 [facility] tro[facility] 6 I Work Phone: [phone] Chloride [Moles/Vol] 104 mmol/L 98 - 107 [facility] 6 I Work Phone: [phone] CO2 [Moles/Vol] 28 mmol/L 21 - 32 [facility] ente [facility] 6 I Work Phone: [phone] Creatinine [Mass/Vol] 1.04 mg/dL See Below [facility] I Work Phone: [phone] Comment on above: Reference Range: 0.5 0 - 1.30 Glucose [Mass/Vol] 99 mg/dL 74 - 99 [facility] 6 I Work Phone: [phone] Potassium [Moles/Vol] 4.0 mmol/L 3.5 - 5.3 [facility] 6 I Work Phone: [phone] Protein [Mass/Vol] 6.7 g/dL 6.4 - 8.2 [facility] Work Phone: [phone] Sodium [Moles/Vol] 139 mmol/L 136 - 145 [facility] tro[facility]ol[facility] 6 [facility] Work Phone: [phone] Urea nitrogen [Mass/Vol] 17 mg/dL 6 - 23 [facility] I Work Phone: [phone] MAGNESIUMon 04-15-2021 Magnesium [Mass/Vol] 1.80 mg/dL Normal 1.60 - 2.40 [facility] Comment on above: Performed By: #### M G ####[facility] [id number] [place] [address] Magnesium, Serumon 1 Magnesium [Mass/Vol] 1.80 mg/dL [...] CREATININE METHODS. CLIN CHEM 2007;53:766-72 [email or web address] ll?RetrieveTestByDateTim e?HckjbsgDW=[id number]&Da te=15-04-2021&Time=11%3a 56%3a08%3a00&TestType=EC G&Site=2&OutputType=PDF& Ext=PDF [facility] Work Phone: Normal sinus rhythm [facility] Work Phone: Borderline Abnormal [facility] Work Phone: [phone] [facility] Work Phone: [phone] [facility] Work Phone: [phone] [facility] Work Phone: [phone] [facility] Work Phone: [phone] [facility] Work Phone: [phone] [facility] Work Phone: [phone] [facility] Work Phone: [phone] [facility] Work Phone: [phone] [facility] Work Phone: [phone] [facility] Work Phone: [phone] [facility] Work Phone: [phone] [facility] Work Phone: [phone] [facility] Work Phone: [phone] [facility] Work Phone: Provider Note - ED v2on 03-24 Provider [...] nonpleuritic, radiating. He apparently went to the [place] fire department 3 times for this complaint [...] made to minimize errors. 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 Please call if questions. [...] Name:Chest p (more content not included)... Normal [facility] Radiologyon 04-15-2021 XR Chest Single view Normal [facility] Work Phone: Risk Screen - Adult Emergenc yon 04-15-2021 Risk Screen - Adult Emergency Preferred Language: Preferred Language: Preferred Language for Discussing Health Care (patient/designee)Fran carver Advanced Directives: Advance Directive/DNRno Family Violence Adult: [...] instruction; written material Cultural Considerationsnone Developmental Considerationsnone Mandaeism Considerationsnone Learning Assessment (Other Learner): Learning Assessment (Other Learner): Other learner availableno Pressure Injury/TB/Substance: Pressure Injury: Do you have a coughno Smoking Statusformer smoker Alcohol Usedenies Drug Usedenies Admission Risk Screen: Significant IndicatorsComplete CAGE: CAGE: Is this an injured patient at a Trauma Center ([facility] [place]): no Electronic Signatures: Stefano Garcia (RN) (Signed 15-Apr-2021 12:17) Authored: Preferred Language, Advanced Directives, Family Violence Adult, Learning Assessment (Patient), Learning Assessment (Other Learner), Pressure Injury/TB/Substance, Pressure Injury, CAGE Last Updated: 15-Apr-2021 12:17 by Stefano Garcia ([place]) Normal [facility] TROPONIN Ion 04-15-2021 TROPONIN I Canceled Normal [facility] Comment on above: Order Comment: TEST [...] is performed using different testing methodology at [facility] than at other [facility]. Direct result comparisons should only be made within the same method. Performed By: #### T ROP2 ####[facility] [id number] [place] [address] Troponin I.cardiac [Mass/Vol] ng/mL Normal 0.00 - 0.03 [facility] Comment on above: Result Comment: LESS [...] is performed using different testing methodology at [facility] than at other [facility]. Direct result comparisons should only be made within the same method. Performed By: #### T ROP2 ####[facility] [id number] [place] [address] TROPONIN I Canceled Normal [facility] Comment on above: Order Comment: TEST [...] is performed using different testing methodology at [facility] than at other [facility]. Direct result comparisons should only be made within the same method. Performed By: #### T ROP2 ####[facility] [id number] [place] [address] TSHon 04-15-2021 TSH Qn 0.61 m[IU]/L Normal 0.44 - 3.98 [facility] Comment on above: Result Comment: TSH testing is performed using different testing methodology at [facility] than at other [facility]. Direct result comparisons should only be made within the same method. Performed By: #### T SH2 #### [facility] [address]TR [address] [place] [address] TSH - Thyroid Stimulating Ho rmone, Serumon 04-15-2021 TSH Qn 0.61 m[IU]/L See Below [facility] Work Phone: Comment on above: Reference Range: 0.4 4 - 3.98 TSH testing is performed using different testing methodology at [facility] than at other [facility]. Direct result comparisons should only be [...] BMI (kg/m2): 28.499 Calculated BSA (m2) 2.02 [place] Coma Scale: Best Eye Response: (E4) spontaneous [...] History Last Updated: 15-Apr-2021 12:17 by Stefano Garcia) Normal [facility] Troponin I, Serumon 04-15-20 21 Troponin I.cardiac [Mass/Vol] ng/mL See Below -Berto liu 6 [facility] Work Phone: Comment on above: Reference Range: [...] is performed using different testing methodology at [facility] than at other [facility]. Direct result comparisons should only be made within the same method. CBC AND DIFFERENTIALon 04-13 % AUTOMATED IMMATURE GRAN 0.3 % Normal 0.0 - 0.9 [facility] Comment on above: Result Comment: Kath ture Granulocyte Count (IG) includes promyelocytes, myelocytes and metamyelocytes but does not include bands. Percent differential counts (%) should be interpreted in the context of the absolute cell counts (cells/L). Performed By: #### C BCDF ####[facility] [id number] [place] [address] Basophils (Bld) [#/Vol] 0.02 10*3/uL Normal 0.00 - 0.10 [facility] Comment on above: Performed By: #### C BCDF ####[facility] [id number] [place] [address] Basophils/100 WBC (Bld) 0.5 % Normal 0.0 - 2.0 [facility] Comment on above: Performed By: #### C BCDF ####[facility] [id number] [place] [address] Eosinophils (Bld) [#/Vol] 0.09 10*3/uL Normal 0.00 - 0.70 [facility] Comment on above: Performed By: #### C BCDF ####[facility] [id number] [place] [address] Eosinophils/100 WBC (Bld) 2.4 % Normal 0.0 - 6.0 [facility] Comment on above: Performed By: #### C BCDF ####[facility] [id number] [place] [address] Erythrocyte distribution width (RBC) [Ratio] 13.4 % Normal 11.5 - 14.5 [facility] Comment on above: Performed By: #### C BCDF ####[facility] [id number] [place] [address] Hematocrit (Bld) [Volume fraction] 38.8 % Low 41.0 - 52.0 [facility] Comment on above: Performed By: #### C BCDF ####[facility] [id number] [place] [address] Hemoglobin (Bld) [Mass/Vol] 12.6 g/dL Low 13.5 - 17.5 [facility] Comment on above: Performed By: #### C BCDF ####[facility] [id number] [place] [address] Lymphocytes (Bld) [#/Vol] 1.19 10*3/uL Low 1.20 - 4.80 [facility] Comment on above: Performed By: #### C BCDF ####[facility] [id number] [place] [address] Lymphocytes/100 WBC (Bld) 31.9 % Normal 13.0 - 44.0 [facility] Comment on above: Performed By: #### C BCDF ####[facility] [id number] [place] [address] MCHC (RBC) [Mass/Vol] 32.5 g/dL Normal 32.0 - 36.0 [facility] Comment on above: Performed By: #### C BCDF ####[facility] [id number] [place] [address] MCV (RBC) [Entitic vol] 86 fL Normal 80 - 100 [facility] Comment on above: Performed By: #### C BCDF ####[facility] [id number] [place] [address] Monocytes (Bld) [#/Vol] 0.38 10*3/uL Normal 0.10 - 1.00 [facility] Comment on above: Performed By: #### C BCDF ####[facility] [id number] [place] [address] Monocytes/100 WBC (Bld) 10.2 % Normal 2.0 - 10.0 [facility] Comment on above: Performed By: #### C BCDF ####[facility] [id number] [place] [address] Neutrophils (Bld) [#/Vol] 2.04 10*3/uL Normal 1.20 - 7.70 [facility] Comment on above: Performed By: #### C BCDF ####[facility] [id number] [place] [address] Neutrophils/100 WBC (Bld) 54.7 % Normal 40.0 - 80.0 [facility] Comment on above: Performed By: #### C BCDF ####[facility] [id number] [place] [address] Platelets (Bld) [#/Vol] 142 10*3/uL Low 150 - 450 [facility] Comment on above: Performed By: #### C BCDF ####[facility] [id number] [place] [address] RBC 4.52 x10E12/L Normal 4.50 - 5.90 [facility] Comment on above: Performed By: #### C BCDF ####[facility] [id number] [place] [address] WBC (Bld) [#/Vol] 3.7 10*3/uL Low 4.4 - 11.3 [facility] Comment on above: Performed By: #### C BCDF ####[facility] [id number] [place] [address] CHEST 2 VIEW PA AND LATon CHEST 2 VIEW PA AND LAT Patient Name: HOSEA ALVAREZ STUDY: TH CHEST 2 VIEW PA AND LAT; 04/13/2021 5:28 pm INDICATION: cp, abd pain. COMPARISON: Chest radiograph 04/12/21 ACCESSION NUMBER(S): [id number] ORDERING CLINICIAN: AMANDA CHOUDHARY FINDINGS: CARDIOMEDIASTINAL SILHOUETTE: Cardiomediastinal silhouette is stable in size and configuration. LUNGS: No interval consolidation or pneumothorax. ABDOMEN: No remarkable upper abdominal findings. BONES: No acute osseous changes. IMPRESSION: 1. No evidence of acute cardiopulmonary process. Electronically signed by: DEDRICK ANGUIANO MD Normal [facility] COMPREHENSIVE PANELon 2020 Albumin [Mass/Vol] 4.5 g/dL Normal 3.4 - 5.0 [facility] Comment on above: Performed By: #### C MP ####[facility] [place] [address] ALP [Catalytic activity/Vol] 47 U/L Normal 33 - 120 [facility] Comment on above: Performed By: #### C MP ####[facility] [place] [address] ALT [Catalytic activity/Vol] 15 U/L Normal 10 - 52 [facility] Comment on above: Result Comment: Yanni ents treated with Sulfasalazine may generate falsely decreased results for ALT. Performed By: #### C MP ####[facility] [place] [address] Anion gap [Moles/Vol] 16 mmol/L Normal 10 - 20 [facility] Comment on above: Performed By: #### C MP ####[facility] [id number] [place] [address] AST [Catalytic activity/Vol] 17 U/L Normal 9 - 39 [facility] Comment on above: Performed By: #### C MP ####[facility] [place] [address] Bilirubin [Mass/Vol] 0.4 mg/dL Normal 0.0 - 1.2 [facility] Comment on above: Performed By: #### C MP ####[facility] [place] [address] Calcium [Mass/Vol] 9.2 mg/dL Normal 8.6 - 10.3 [facility] Comment on above: Performed By: #### C MP ####[facility] [id number] [place] [address] Chloride [Moles/Vol] 102 mmol/L Normal 98 - 107 [facility] Comment on above: Performed By: #### C MP ####[facility] [id number] [place] [address] Creatinine [Mass/Vol] 0.80 mg/dL Normal 0.50 - 1.30 [facility] Comment on above: Performed By: #### C MP ####[facility] [place] [address] GFR- AM. >60 Normal >60 [facility] Comment on above: Result Comment: CALC ULATIONS OF ESTIMATED GFR ARE PERFORMED USING THE MDRD STUDY EQUATION FOR THE IDMS-TRACEABLE CREATININE METHODS. CLIN CHEM 2007;53:766-72 Performed By: #### C MP ####[facility] [id number] [place] [address] GFR-NON AM. >60 Normal >60 [facility] Comment on above: Performed By: #### C MP ####[facility] [id number] [place] [address] Glucose [Mass/Vol] 83 mg/dL Normal 74 - 99 [facility] Comment on above: Performed By: #### C MP ####[facility] [id number] [place] [address] HCO3 (Bld) [Moles/Vol] 24 mmol/L Normal 21 - 32 [facility] Comment on above: Performed By: #### C MP ####[facility] [place] [address] Potassium [Moles/Vol] 3.6 mmol/L Normal 3.5 - 5.3 [facility] Comment on above: Performed By: #### C MP ####[facility] [id number] [place] [address] Protein [Mass/Vol] 7.0 g/dL Normal 6.4 - 8.2 [facility] Comment on above: Performed By: #### C MP ####[facility] [place] [address] Sodium [Moles/Vol] 138 mmol/L Normal 136 - 145 [facility] Comment on above: Performed By: #### C MP ####[facility] [id number] [place] [address] Urea nitrogen [Mass/Vol] 11 mg/dL Normal 6 - 23 [facility] Comment on above: Performed By: #### C MP ####[facility] [place] [id number] Complete Blood Count + Diffe rentialon 04-13-2020 Basophils/100 WBC (Bld) 0.5 % 0.0 - 2.0 [facility] Work Phone: Erythrocyte distribution width (RBC) [Ratio] [...] 6 [facility] Work Phone: Monocytes/100 WBC (Bld) 10.2 % 2.0 - 10.0 [facility] Work Phone: [phone] Neutrophils/100 WBC (Bld) 54.7 % See Below [facility] Work Phone: Comment on above: Reference Range: 40. 0 - 80.0 Platelets (Bld) [#/Vol] 142 10*3/uL below low threshold 150 - 450 [facility] Work Phone: RBC (Bld) [#/Vol] 4.52 {x10E12/L} See Below [...] [Moles/Vol] 1.5 mmol/L Normal 0.4 - 2.0 [facility] Comment on above: Result Comment: Jocelyn puncture immediately after or during the administration of Metamizole may lead to falsely low results. Testing should be performed immediately prior to Metamizole dosing. Performed By: #### L ACT ####[facility] [id number] [place] [address] LIPASEon 04-13-2021 Lipase [Catalytic activity/Vol] 15 U/L Normal 9 - 82 [facility] Comment on above: Result Comment: Jocelyn puncture immediately after or during the administration of Metamizole may lead to falsely low results. Testing should be performed immediately prior to Metamizole dosing. Q-wkwjtw-z-benzoquinone imine (metabolite of Acetaminophen) will generate erroneously low results in samples for patients that have taken toxic doses of acetaminophen. Performed By: #### L IPAS ####[facility] [id number] [place] [id number] Laboratory - Chemistry and C hemistry - challengeon 04-13-2021 Albumin BCP dye [Mass/Vol] 4.5 g/dL 3.4 - 5.0 [facility] Work Phone: [phone] ALP [Catalytic activity/Vol] 47 U/L 33 - 120 [facility] Work Phone: [phone] ALT With P-5'-P [Catalytic activity/Vol] 15 U/L 10 - 52 [facility] Work Phone: [phone] Comment on above: Patients treated wit h Sulfasalazine may generate falsely decreased results for ALT. Anion gap [Moles/Vol] 16 mmol/L 10 - 20 [facility] Work Phone: [phone] AST With P-5'-P [Catalytic activity/Vol] 17 U/L 9 - 39 [facility] Work Phone: [phone] Bilirubin [Mass/Vol] 0.4 mg/dL 0.0 - 1.2 [facility]roente [facility]log[facility]-Bolw[facility] l 6 [facility] Work Phone: [phone] Calcium [Mass/Vol] 9.2 mg/dL 8.6 - 10.3 [facility] Work Phone: [phone] Chloride [Moles/Vol] 102 mmol/L 98 - 107 [facility] Work Phone: [phone] CO2 [Moles/Vol] 24 mmol/L 21 - 32 [facility] Work Phone: [phone] Creatinine [Mass/Vol] 0.80 mg/dL See Below [facility] Work Phone: Comment on above: Reference Range: 0.5 0 - 1.30 Glucose [Mass/Vol] 83 mg/dL 74 - 99 [facility] 6 I Work Phone: Potassium [Moles/Vol] 3.6 mmol/L 3.5 - 5.3 [facility] I Work Phone: Protein [Mass/Vol] 7.0 g/dL 6.4 - 8.2 [facility] I Work Phone: Sodium [Moles/Vol] 138 mmol/L 136 - 145 [facility] I Work Phone: Urea nitrogen [Mass/Vol] 11 mg/dL 6 - 23 [facility] I Work Phone: Lactate, Levelon 04-13-2021 Lactate [Moles/Vol] 1.5 mmol/L 0.4 - 2.0 [facility] 6 [facility] Work Phone: Comment on above: Venipuncture immedia [...] be performed immediately prior to Metamizole dosing. M-isglrn-y-benzoquinone imine (metabolite of Acetaminophen) will generate erroneously low results in samples for patients that have taken toxic doses of acetaminophen. No Panel Informationon 04-13 >60 >60 [facility] Work Phone: Comment on above: CALCULATIONS OF NIKOLE MATED GFR ARE PERFORMED USING THE MDRD STUDY EQUATION FOR THE IDMS-TRACEABLE CREATININE METHODS. CLIN CHEM 2007;53:766-72 [email or web address]?RetrieveTestByDateTim e?KwzmaavTS=[id number]&Da te=13-04-2021&Time=15%3a 22%3a02%3a00&TestType=EC G&Site=2&OutputType=PDF& Ext=PDF [facility] Work Phone: Normal sinus rhythm [facility] Work Phone: [phone] Abnormal [facility] Work Phone: [phone] [facility] Work Phone: [phone] [facility] Work Phone: [phone] [facility] Work Phone: [phone] [facility] Work Phone: [phone] [facility] Work Phone: [phone] [facility] Work Phone: 2 1 [facility] Work Phone: [phone] [facility] Work Phone: [phone] 1 [facility] Work Phone: [phone] [facility] Work Phone: [phone] [facility] Work Phone: [phone] [facility] Work Phone: Provider Note - ED [...] sinus rhythm with a normal axis, normal NV and QT intervals, no ST segment elevations [...] Last Updated: 12-Apr-2021 22:36 by Malou Lomax) 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 currently rates 0/10. EKG performed, to MD [...] Status: Pa (more content not included)... Normal [facility] Radiologyon 04-13-2021 XR Chest 2 Views Normal [facility] corin liu 6 I Work Phone: Risk Screen - Adult Emergenc yon 04-13-2021 Risk Screen - Adult Emergency Preferred Language: Preferred Language: Preferred Language for Discussing Health Care (patient/designee)Fran carver Advanced Directives: Advance Directive/DNRno Family Violence Adult: [...] Learning Preferencesverbal instruction Cultural Considerationsnone Developmental Considerationsnone Mandaeism Considerationsnone Learning Assessment (Other Learner): Learning Assessment (Other Learner): Other learner availableno Pressure Injury/TB/Substance: Pressure Injury: Do you have a coughno Smoking Statusformer smoker Admission Risk Screen: Significant IndicatorsComplete CAGE: CAGE: Is this an injured patient at a Trauma Center ([facility] [place] no Electronic Signatures: Mahsa Glover (RN) (Signed 13-Apr-2021 16:25) Authored: Preferred Language, Advanced Directives, Family Violence Adult, Learning Assessment (Patient), Learning Assessment (Other Learner), Pressure Injury/TB/Substance, Pressure Injury, CAGE Last Updated: 13-Apr-2021 16:25 by Mahsa Glover ([place]) Normal [facility] TROPONIN Ion 04-13-2021 Troponin I.cardiac [Mass/Vol] ng/mL Normal 0.00 - 0.03 [facility] Comment on above: Result Comment: LESS [...] is performed using different testing methodology at [facility] than at other [facility]. Direct result comparisons should only be made within the same method. Performed By: #### T ROP2 ####[facility] [id number] [place] [address] TROPONIN I Canceled Normal [facility] Comment on above: Order Comment: TEST [...] is performed using different testing methodology at [facility] than at [facility]. Direct result comparisons should only be made within the same method. Performed By: #### T ROP2 ####[facility] [id number] [place] [address] Troponin I.cardiac [Mass/Vol] ng/mL Normal 0.00 - 0.03 [facility] Comment on above: Result Comment: LESS [...] is performed using different testing methodology at [facility] than at [facility]. Direct result comparisons should only be made within the same method. 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 EKG performed, to MD [...] BMI (kg/m2): 30.722 Calculated BSA (m2) 2.00 [place]ron[place] Coma Scale: Best Eye Response: (E4) spontaneous [...] 13-Apr-2021 15:33 by Mahsa Glover (RN) Normal [facility] Troponin I, Serumon 04-13-20 21 Troponin I.cardiac [Mass/Vol] ng/mL See Below [facility]Gastroente rology-Bolwel l 6 [facility] Work Phone: Comment on above: Reference Range: [...] is performed using different testing methodology at [facility] than at other [facility]. Direct result comparisons should only be made within the same method. BASIC METABOLIC PANELon 03-24 Anion gap [Moles/Vol] 11 mmol/L Normal 10 - 20 [facility] Comment on above: Performed By: #### B MP ####[facility] [id number] [place] [address] Calcium [Mass/Vol] 8.9 mg/dL Normal 8.6 - 10.3 [facility] Comment on above: Performed By: #### B MP ####[facility] [id number] [place] [address] Chloride [Moles/Vol] 104 mmol/L Normal 98 - 107 [facility] Comment on above: Performed By: #### B MP ####[facility] [id number] [place] [address] Creatinine [Mass/Vol] 0.90 mg/dL Normal 0.50 - 1.30 [facility] Comment on above: Performed By: #### B MP ####[facility] [id number] [place] [address] GFR- AM. >60 Normal >60 [facility] Comment on above: Result Comment: CALC ULATIONS OF ESTIMATED GFR ARE PERFORMED USING THE MDRD STUDY EQUATION FOR THE IDMS-TRACEABLE CREATININE METHODS. CLIN CHEM 2007;53:766-72 Performed By: #### B MP ####[facility] [id number] [place] [id number] GFR-NON AM. >60 Normal >60 [facility] Comment on above: Performed By: #### B MP ####[facility] [id number] [place] [id number] Glucose [Mass/Vol] 100 mg/dL High 74 - 99 [facility] Comment on above: Performed By: #### B MP ####[facility] [id number] [place] [address] HCO3 (Bld) [Moles/Vol] 27 mmol/L Normal 21 - 32 [facility] Comment on above: Performed By: #### B MP ####[id number] [place] [id number] Potassium [Moles/Vol] 4.1 mmol/L Normal 3.5 - 5.3 [facility] Comment on above: Result Comment: MILD HEMOLYSIS DETECTED. The result may be falsely elevated due to hemolysis or other interferents. Clinical correlation is recommended. Repeat testing may be considered. Performed By: #### B MP ####[facility] [id number] [place] [id number] Sodium [Moles/Vol] 138 mmol/L Normal 136 - 145 [facility] Comment on above: Performed By: #### B MP ####[id number] [place] [id number] Urea nitrogen [Mass/Vol] 14 mg/dL Normal 6 - 23 [facility] Comment on above: Performed By: #### B MP ####[facility] [id number] [place] [address] BNPon 04-12-2021 Natriuretic peptide B (Bld) [Mass/Vol] 34 pg/mL Normal 0 - 99 [facility] Comment on above: Result Comment: . <1 00 pg/mL - Heart failure unlikely 100-299 pg/mL - Intermediate probability of acute heart . failure exacerbation. Correlate with clinical . context and patient history. >=300 pg/mL - Heart Failure likely. Correlate with clinical . context and patient history. BNP testing is performed using different testing methodology at [facility] than at other [facility]. Direct result comparisons should only be made within the same method. Performed By: #### B NP2 ####[facility] [id number] [place] [address] Blood Pressure Cuff Sizeon 0 04-12-2021 Fall risk assessment a) No falls within the last year [facility] Work Phone: Tobacco use status CPHS b) No [facility] Work Phone: Blood Pressure Cuff Size Large [facility] Work Phone: CBC AND DIFFERENTIALon 04-12 % AUTOMATED IMMATURE GRAN 0.3 % Normal 0.0 - 0.9 [facility] Comment on above: Result Comment: Kath ture Granulocyte Count (IG) includes promyelocytes, myelocytes and metamyelocytes but does not include bands. Percent differential counts (%) should be interpreted in the context of the absolute cell counts (cells/L). Performed By: #### C BCDF ####[facility] [id number] [place] [address] Basophils (Bld) [#/Vol] 0.02 10*3/uL Normal 0.00 - 0.10 [facility] Comment on above: Performed By: #### C BCDF ####[facility] [id number] [place] [address] Basophils/100 WBC (Bld) 0.6 % Normal 0.0 - 2.0 [facility] Comment on above: Performed By: #### C BCDF ####[facility] [id number] [place] [address] Eosinophils (Bld) [#/Vol] 0.09 10*3/uL Normal 0.00 - 0.70 [facility] Comment on above: Performed By: #### C BCDF ####[facility] [id number] [place] [address] Eosinophils/100 WBC (Bld) 2.5 % Normal 0.0 - 6.0 [facility] Comment on above: Performed By: #### C BCDF ####[facility] [id number] [place] [id number] Erythrocyte distribution width (RBC) [Ratio] 13.5 % Normal 11.5 - 14.5 [facility] Comment on above: Performed By: #### C BCDF ####[facility] [id number] [place] [address] Hematocrit (Bld) [Volume fraction] 38.4 % Low 41.0 - 52.0 [facility] Comment on above: Performed By: #### C BCDF ####[facility] [id number] [place] [address] Hemoglobin (Bld) [Mass/Vol] 12.4 g/dL Low 13.5 - 17.5 [facility] Comment on above: Performed By: #### C BCDF ####[facility] [id number] [place] [address] Lymphocytes (Bld) [#/Vol] 0.95 10*3/uL Low 1.20 - 4.80 [facility] Comment on above: Performed By: #### C BCDF ####[facility] [id number] [place] [address] Lymphocytes/100 WBC (Bld) 26.8 % Normal 13.0 - 44.0 [facility] Comment on above: Performed By: #### C BCDF ####[facility] [id number] [place] [address] MCHC (RBC) [Mass/Vol] 32.3 g/dL Normal 32.0 - 36.0 [facility] Comment on above: Performed By: #### C BCDF ####[facility] [id number] [place] [address] MCV (RBC) [Entitic vol] 86 fL Normal 80 - 100 [facility] Comment on above: Performed By: #### C BCDF ####[facility] [id number] [place] [address] Monocytes (Bld) [#/Vol] 0.36 10*3/uL Normal 0.10 - 1.00 [facility] Comment on above: Performed By: #### C BCDF ####[facility] [id number] [place] [address] Monocytes/100 WBC (Bld) 10.2 % Normal 2.0 - 10.0 [facility] Comment on above: Performed By: #### C BCDF ####[facility] [id number] [place] [address] Neutrophils (Bld) [#/Vol] 2.11 10*3/uL Normal 1.20 - 7.70 [facility] Comment on above: Performed By: #### C BCDF ####[facility] [id number] [place] [address] Neutrophils/100 WBC (Bld) 59.6 % Normal 40.0 - 80.0 [facility] Comment on above: Performed By: #### C BCDF ####[facility] [id number] [place] [address] Platelets (Bld) [#/Vol] 136 10*3/uL Low 150 - 450 [facility] Comment on above: Performed By: #### C BCDF ####[facility] [id number] [place] [address] RBC 4.44 x10E12/L Low 4.50 - 5.90 [facility] Comment on above: Performed By: #### C BCDF ####[facility] [id number] [place] [address] WBC (Bld) [#/Vol] 3.5 10*3/uL Low 4.4 - 11.3 [facility] Comment on above: Performed By: #### C BCDF ####[facility] [id number] [place] [address] CHEST 1 VIEWon 04-12-2021 CHEST 1 VIEW Patient Name: HOSEA ALVAREZ STUDY: CHEST 1 VIEW; 04/12/2021 6:52 pm INDICATION: Chest Pain. COMPARISON: April 04, 2021 CT angiogram. April 08, 2021 chest radiograph ACCESSION NUMBER(S): [id number] ORDERING CLINICIAN: DANA SOL FINDINGS: AP portable [...] Electronically signed by: SANTA WAY MD Normal [facility] Complete Blood Count + Diffe rentialon 04-12-2021 Basophils/100 WBC (Bld) 0.6 % 0.0 - 2.0 [facility] [employer] Work Phone: Erythrocyte distribution width (RBC) [Ratio] 13.5 % See Below [facility] 1800 [...] 2.11 {x10E9/L} See Below [facility] 1800 Work Phone: Comment on above: Reference Range: 1.2 0 - 7.70 Complete Blood Count + Differential 2.5 % 0.0 - 6.0 [facility] 1800 Work Phone: Complete Blood Count + Differential 0.3 % 0.0 - 0.9 [facility] [employer] Work Phone: Comment on above: Immature Granulocyte [...] Surgery-[facility] 1800 Work Phone: Chloride [Moles/Vol] 104 mmol/L 98 - 107 [facility] [employer] Work Phone: CO2 [Moles/Vol] 27 mmol/L 21 - 32 [facility] 1800 Work Phone: Creatinine [Mass/Vol] 0.90 mg/dL See Below [facility] 1800 Work Phone: Comment on above: Reference Range: 0.5 0 - 1.30 Glucose [Mass/Vol] 100 mg/dL above high threshold 74 - 99 [facility] 1800 Work Phone: Potassium [Moles/Vol] 4.1 mmol/L 3.5 - 5.3 [facility] 1800 Work Phone: Comment on above: MILD HEMOLYSIS DETEC SEBASTIÁN. The result may be falsely elevated due tohemolysis or other interferents. Clinical correlation is recommended.Repeat testing may be considered. Sodium [Moles/Vol] 138 mmol/L 136 - 145 [facility] mathews 1800 Work Phone: Urea nitrogen [Mass/Vol] 14 mg/dL 6 - 23 [facility] mathews [employer] Work Phone: MAGNESIUMon 04-12-2021 Magnesium [Mass/Vol] 1.90 mg/dL Normal 1.60 - 2.40 [facility] Comment on above: Performed By: #### M ####[facility] [id number] [place] [address] Magnesium, Serumon Magnesium [Mass/Vol] 1.90 mg/dL See Below [facility] as[facility]-José Miguel mathews [employer] Work Phone: Comment on above: Reference Range: 1.6 0 - 2.40 No Panel Informationon 04-12 [email or web address] ll?RetrieveTestByDateTim e?GioabllQT=[id number]&Da te=12-04-2021&Time=21%3a 45%3a44%3a00&TestType=EC G&Site=2&OutputType=PDF& Ext=PDF [facility]ol[facility] l 6 [facility] Work Phone: [phone] Normal sinus rhythm [facility]-Ga stroente rology-Bolwel l 6 [facility] Work Phone: [phone] Normal [facility]olwel l 6 [facility] Work Phone: [phone] 1 [facility] 6 [facility] Work Phone: [phone] 1 [facility]ol[facility] l 6 [facility] Work Phone: [phone] 1 [facility]ol[facility] l 6 [facility] Work Phone: [phone] 1 [facility]olwel l 6 [facility] Work Phone: [phone] 1 [facility]ol[facility] l 6 [facility] Work Phone: [phone] 11 1 [facility]log[facility]olwel l 6 [facility] Work Phone: [phone] 13 1 [facility]log[facility]olwel l 6 [facility] Work Phone: [phone] 12 1 [facility]olwel l 6 [facility] Work Phone: [phone] 42 1 [facility]log[facility]olwel l 6 [facility] Work Phone: [phone] 1 [facility] rology-Bolwel l 6 [facility] Work Phone: [phone] 1 [facility]olwel l 6 [facility] Work Phone: [phone] 1 [facility]logy-Bolwel l 6 [facility] Work Phone: [phone] 1 [facility]ol[facility] l 6 [facility] Work Phone: [phone] 61 1 [facility] 6 [facility] Work Phone: [phone] [email or web address] ll?RetrieveTestByDateTim e?QcleuekOE=[id number]&Da te=12-04-2021&Time=19%3a 45%3a57%3a00&TestType=EC G&Site=2&OutputType=PDF& Ext=PDF [facility] 6 [facility] Work Phone: [phone] Sinus bradycardia MG-Tyson roente rology-Bolwel l 6 [facility] Work Phone: [phone] Borderline Abnormal [facility]-Ga stroente rology-Bolwel l 6 [facility] Work Phone: [phone] 1 [facility]olwel l 6 [facility] Work Phone: [phone] 1 [facility]ol[facility]el l 6 [facility] Work Phone: [phone] 1 [facility]logy-[facility]olwel l 6 [facility] Work Phone: [phone] 1 [facility] rology-Bolwel l 6 [facility] Work Phone: [phone] 1 [facility] rology-Bolwel l 6 [facility] Work Phone: [phone] 1 [facility]log[facility]olwel l 6 [facility] Work Phone: [phone] 1 [facility]logy-[facility]olwel l 6 [facility] Work Phone: [phone] -3 1 [facility] rology-Bolwel l 6 [facility] Work Phone: [phone] 31 1 [facility]logy-Bolwel l 6 [facility] Work Phone: [phone] 1 [facility] rology-Bolwel l 6 [facility] Work Phone: [phone] 1 [facility] rology-Bolwel l 6 [facility] Work Phone: [phone] 1 [facility]olwel l 6 [facility] Work Phone: [phone] 1 [facility] rology-Bolwel l 6 [facility] Work Phone: [phone] 54 1 [facility]logy-[facility]olwel l 6 [facility] Work Phone: [phone] 34 pg/mL 0 - 99 [facility] 1800 Work Phone: [phone] Comment on above: . <100 pg/mL - Heart failure aagjckcb162-302 pg/mL - Intermediate probability of acute heart. failure exacerbation. Correlate with clinical. context and patient history. >=300 pg/mL - Heart Failure likely. Correlate with clinical. context and patient history.BNP testing is performed using different testing methodology at [facility] than at other [facility]. Direct result comparisons should only be made within the same method. >60 >60 [facility]ws 1800 Work Phone: [phone] Comment on above: CALCULATIONS OF NIKOLE MATED GFR ARE PERFORMED USING THE MDRD STUDY EQUATION FOR THE IDMS-TRACEABLE CREATININE METHODS. CLIN CHEM 2007;53:766-72 [email or web address] 1:[email or web address] ll?RetrieveTestByDateTim e?TgvaqcbHT=[id number]&Da te=12-04-2021&Time=17%3a 54%3a59%3a00&TestType=EC G&Site=2&OutputType=PDF& Ext=PDF [facility]log[facility]olw[facility] l 6 [facility] Work Phone: [phone] Normal sinus rhythm [facility]-Ga stroente rology-Bolwel l 6 [facility] Work Phone: [phone] Normal [facility]Gastroente rology-Bolwel l 6 [facility] Work Phone: [phone] 1 [facility]astro[facility] rology-Bolwel l 6 [facility] Work Phone: [phone] 1 [facility]y-[facility]olwel l 6 [facility] Work Phone: [phone] 1 [facility]y-[facility]olwel l 6 [facility] Work Phone: [phone] 1 [facility]Gastro[facility] rology-Bolwel l 6 [facility] Work Phone: [phone] 1 [facility]olwel l 6 [facility] Work Phone: [phone] 11 1 [facility] 6 [facility] Work Phone: [phone] 15 1 [facility]olwel l 6 [facility] Work Phone: [phone] -8 1 [facility]olwel l 6 [facility] Work Phone: [phone] 38 1 [facility]ol[facility] l 6 [facility] Work Phone: [phone] 1 [facility]astro[facility]y-Bolwel l 6 [facility] Work Phone: [phone] 1 [facility]olwel l 6 [facility] Work Phone: [phone] 1 [facility]ol[facility] l 6 [facility] Work Phone: [phone] 1 [facility]olwel l 6 [facility] Work Phone: [phone] 1 [facility]ol[facility] 6 [facility] Work Phone: [phone] Office Visit ([facility])on 04-12-2021 Follow-up visit Diagnoses/Problems Assessed Renal artery stenosis (440.1) (I70.1) Ascending aortic aneurysm (441.2) (I71.2) Orders Renal artery stenosis Basic Metabolic Panel; Status:Active; Requested for:[id number]; Complete Blood Count + Differential; Status:Active; Requested for:[id number]; PT/INR; Status:Active; Requested for:[id number]; Patient Discussion/Summary Impression: tobacco smoking. Patient discussion: [...] evaluation. He has been receiving care at [facility] in [place] and recently moved back to [place]. He states Dr. Juan Franz has been monitoring his ascending aortic aneurysm as well as his left renal artery stenosis and that both have been stable as of last July. He was evaluated at [facility] ED last week with complaints of right-sided [...] once a day Vitals Vital Signs Recorded: 12Apr2021 11:26AM Heart Rate90 Ddigwruh717, LUE, Sitting Mamxrcqvu47, LUE, Sitting Blood Pressure Cuff SizeLarge Height5 ft 6 in Wwrper462 lb BMI Uiexkqvzrs34.51 kg/m2 BSA Calculated1.95 Tobacco Useb) No Fall Screeninga) No falls within the last year O2 Qnvbirkhhx47, RA Systolic Uxfwjsv311, RUE, Sitting Diastolic Ockfxao82, RUE, Sitting Physical Exam Constitutional: Well developed [...] mood and (more content not included)... 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 (1). Triage Information: Mo (more content not included)... Normal [facility] Radiologyon 04-12-2021 XR Chest Single view Normal [facility] mathews 1800 Work Phone: TROPONIN Ion 04-12-2021 Troponin I.cardiac [Mass/Vol] ng/mL Normal 0.00 - 0.03 [facility] Comment on above: Result Comment: LESS [...] is performed using different testing methodology at [facility] than at other [facility]. Direct result comparisons should only be made within the same method. Performed By: #### T ROP2 ####[facility] [id number] [place] [address] Triage - EDon 04-12-2021 Triage - ED Chart Review: ARRIVAL INFORMATION Mode of Arrival: ambulance Agency Name: [facility] CHIEF COMPLAINT HOSEA ALVAREZ is a Male patient with a chief complaint of chest pain. 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 Triage Date/Time: 12-Apr-2021 17:52 WILMAN: 2 Pain [...] BMI (kg/m2): 30.260 Calculated BSA (m2) 1.99 Trona Coma Scale: Best Eye Response: (E4) spontaneous [...] Last Updated: 12-Apr-2021 18:27 by Cierra Francisco ([place]) Normal [facility] Troponin I, Serumon 04-12-20 21 Troponin I.cardiac [...] is performed using different testing methodology at [facility] than [facility]. Direct result comparisons should only be made within the same method. Troponin I.cardiac [Mass/Vol] ng/mL See Below MG-Vascular [...] is performed using different testing methodology at [facility] than at other [facility]. Direct result comparisons should only be [...] until 8 hours following last biotin administration. [facility] Albumin [Mass/Vol] Albumin 4.3 GM/DL (3.5-5.0 GM/DL) 3.5 - 5.0 GM/DL [facility] Albumin/Globulin [Mass ratio] Albumin Globulin Ratio 1.6 RATIO (1.5-3.0 RATIO) 1.5 - 3.0 RATIO [facility] ALP (Bld) [Catalytic activity/Vol] Alk Phosphatase 62 U/L (35-125 U/L) 35 - 125 U/L S ALT [Catalytic activity/Vol] ALT 20 U/L (5-40 U/L) 5 - 40 U/L [facility] Anion gap [Moles/Vol] Anion Gap 7 MMOL/L (0-19 MMOL/L) 0 - 19 MMOL/L [facility] AST [Catalytic activity/Vol] AST 16 U/L (5-40 U/L) 5 - 40 U/L S Bilirubin [Mass/Vol] Total Bilirubin 0.2 MG/DL (0.1-1.2 MG/DL) 0.1 - 1.2 MG/DL S Calcium [Mass/Vol] Calcium 9.5 MG/DL (8.5-10.4 MG/DL) 8.5 - 10.4 MG/DL S Chloride [Moles/Vol] Chloride 101 MMOL/L (97-107 MMOL/L) 97 - 107 MMOL/L S CO2 [Moles/Vol] Carbon Dioxide 29 MM OL/L [...] under 18 years of age. Performed at [facility] [address] [place] [id number] [facility] Globulin (S) [Mass/Vol] Globulin 2.7 G/DL (1.9-3.7 G/DL) 1.9 - 3.7 G/DL S Glucose [Mass/Vol] Glucose 93 MG/DL (65 -99 MG/DL) 65 - 99 MG/DL S Potassium [Moles/Vol] Potassium R 4.3 MM OL/L (3.4-5.1 MMOL/L) 3.4 - 5.1 MMOL/L S Protein [Mass/Vol] Total Protein 7.0 G/ DL (5.9-7.9 G/DL) 5.9 - 7.9 G/DL S Sodium [Moles/Vol] Sodium 137 MMOL/L (133-145 [...] until 8 hours following last biotin administration. S Urea nitrogen [Mass/Vol] BUN 15 MG/DL (8-25 MG/DL) 8 - 25 MG/DL S Urea nitrogen/Creatinine [Mass ratio] BUN Creatinine Ratio 15.0 RATIO (8-21 RATIO) 8 - 21 RATIO [facility] - Hematology and Cell countson 04-11-2021 Basophils (Bld) [#/Vol] Abs Baso 0.02 K/UL (0.00-0.22 K/UL) 0.00 - 0.22 K/UL [facility] Basophils/100 WBC (Bld) Basophil 0.40 % (0-1 %) 0 - 1 % [facility] Differential cell count method Nom (Bld) Diff Type AUTO DIFF (Reference Range: not available) [facility] Eosinophils (Bld) [#/Vol] Abs Eos 0.06 K/UL (0-0.45 K/UL) 0 - 0.45 K/UL [facility] Eosinophils/100 WBC (Bld) Eosinophil 1.30 % (0-3 %) 0 - 3 % [facility] Erythrocyte distribution width (RBC) [Entitic vol] RDW SD 40.7 FL (37.0-54.0 FL) 37.0 - 54.0 FL [facility] Erythrocyte distribution width (RBC) [Ratio] RDW CV 13.1 % (11.7-15.0 %) 11.7 - 15.0 % [facility] Hematocrit (Bld) [Volume fraction] HCT 40.6 % L (41-50 %) Low 41 - 50 % [facility] Hemoglobin (Bld) [Mass/Vol] HGB 13.1 GM/DL L (13.5-16.5 GM/DL) Low 13.5 - 16.5 GM/DL [facility] Immature granulocytes (Bld) [#/Vol] Abs Imm Neut 0.01 K/UL (0.0-0.1 K/UL) 0.0 - 0.1 K/UL [facility] Lymphocytes (Bld) [#/Vol] Abs Lymph 0.92 K/UL [...] FL (80-100 FL) 80 - 100 FL [facility] Monocytes (Bld) [#/Vol] Abs Wilbarger 0.42 K/UL (0-0.8 K/UL) 0 - 0.8 K/UL [facility] Monocytes/100 WBC (Bld) Monocyte 9.40 % H (0-8 %) High 0 - 8 % [facility] Neutrophils (Bld) [#/Vol] Abs.Neut.Calculated 3.05 K/UL (Reference Range: not available) Performed at [facility] [address] [place] [id number] [facility] Neutrophils (Bld) [#/Vol] Abs Neut 3.05 K/UL (1.8-7.7 K/UL) 1.8 - 7.7 K/UL [facility]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 activity/Vol] 56 U/L 33 - 120 [facility] 1800 Work Phone: ALT With P-5'-P [Catalytic activity/Vol] 14 U/L 10 - 52 [facility] [employer] Work Phone: [phone] Comment on above: Patients treated wit h Sulfasalazine may generate falsely decreased results for ALT. Anion gap [Moles/Vol] 11 mmol/L 10 - 20 [facility] [employer] Work Phone: [phone] AST With P-5'-P [Catalytic activity/Vol] 17 U/L 9 - 39 [facility] [employer] Work Phone: [phone] Bilirubin [Mass/Vol] 0.4 mg/dL 0.0 - 1.2 [facility] [employer] Work Phone: [phone] Calcium [Mass/Vol] 8.7 mg/dL 8.6 - 10.3 [facility] [employer] Work Phone: [phone] Chloride [Moles/Vol] 105 mmol/L 98 - 107 [facility] [employer] Work Phone: [phone] CO2 [Moles/Vol] 26 mmol/L 21 - 32 [facility] [employer] Work Phone: [phone] Creatinine [Mass/Vol] 1.06 mg/dL See Below [facility] [employer] Work Phone: [phone] Comment on above: Reference Range: 0.5 0 - 1.30 Glucose [Mass/Vol] 86 mg/dL 74 - 99 [facility] [employer] Work Phone: [phone] Potassium [Moles/Vol] 4.0 mmol/L 3.5 - 5.3 [facility] [employer] Work Phone: [phone] Protein [Mass/Vol] 6.5 g/dL 6.4 - 8.2 [facility] [employer] Work Phone: [phone] Sodium [Moles/Vol] 138 mmol/L 136 - 145 [facility] [employer] Work Phone: Urea nitrogen [Mass/Vol] 13 mg/dL [...] CLIN CHEM 2007;53:766-72 [email or web address]?RetrieveTestByDateTim e?HqdlbzqEQ=[id number]&Da te=08-29-2021&Time=19%3a 11%3a58%3a00&TestType=EC G&Site=11&OutputType=PDF &Ext=PDF [facility] 1800 Work Phone: Sinus bradycardia [facility] 1800 Work Phone: Abnormal [facility] 1800 Work Phone: [phone] [facility] 1800 Work Phone: [phone] [facility] 1800 Work Phone: [phone] [facility] 1800 Work Phone: [phone] [facility] Work Phone: [phone] [facility] 1800 Work [...] [Time] 12.1 s Normal 10.1 - 13.3 [facility] Comment on above: Performed By: #### T ROP2 #### [address] [id number] PT, INR 1.0 Normal 0.9 - 1.1 [facility] Comment on above: Performed By: #### T ROP2 #### [address] [id number] Provider Note - ED v2on 03-23 Provider [...] care. Patient reports he is following between [place] and [place] because of work. Per chart review, some [...] had multi (more content not included)... Normal [facility] Radiologyon 04-03-2021 XR Chest Single view Normal [facility] Work Phone: Risk Screen - Adult Emergenc yon 04-03-2021 Risk Screen - Adult Emergency Preferred Language: Preferred Language: Preferred Language for Discussing Health Care (patient/designee)Fran carver Advanced Directives: Advance Directive/DNRno Advance Directive Information [...] instruction; written material Cultural Considerationsnone Developmental Considerationsnone Mandaeism Considerationsnone Learning Assessment (Other Learner): Learning Assessment (Other Learner): Other learner availableno Pressure Injury/TB/Substance: Pressure Injury: Do you have a coughno Smoking Statusformer smoker Admission Risk Screen: Significant IndicatorsComplete CAGE: CAGE: Is this an injured patient at a Trauma Center ([facility] [place]): no Electronic Signatures: Gracia Guaman (RN) (Signed 03-Apr-2021 19:17) Authored: Preferred Language, Advanced Directives, Family Violence Adult, Learning Assessment (Patient), Learning Assessment (Other Learner), Pressure Injury/TB/Substance, Pressure Injury, CAGE Last Updated: 03-Apr-2021 19:17 by Gracia Guaman (RN) Normal [facility] TROPONIN Ion 04-03-2021 Troponin I.cardiac [Mass/Vol] ng/mL Normal 0.00 - 0.03 [facility] Comment on above: Result [...] is performed using different testing methodology at [facility] than at other [facility]. Direct result comparisons should only be made within the same method. Performed By: #### T ROP2 #### [address] [id number] Triage - EDon 04-03-2021 Triage - ED [...] Last Updated: 03-Apr-2021 19:16 by Gracia Guaman ([place]) Normal [facility] Troponin I, Serumon 04-03-20 [...] is performed using different testing methodology at [facility] than at other [facility]. Direct result comparisons should only be made within the same method. Troponin I.cardiac [Mass/Vol] ng/mL See Below -Vascular Surgery-José Miguel mathews 1800 Work Phone: Comment on above: Reference [...] is performed using different testing methodology at [facility] than at other [facility]. Direct result comparisons should only be made within the same method. BASIC METABOLIC PANELon 03-23 Anion gap [Moles/Vol] 13 mmol/L Normal 10 - 20 [facility] Comment on above: Performed By: #### B MP #### [address] [id number] Calcium [Mass/Vol] 9.1 mg/dL Normal 8.6 - 10.3 [facility] Comment on above: Performed By: #### B MP #### [address] [id number] Chloride [Moles/Vol] 103 mmol/L Normal 98 - 107 [facility] Comment on above: Performed By: #### B MP #### [address] [id number] Creatinine [Mass/Vol] 0.92 mg/dL Normal 0.50 - 1.30 [facility] Comment on above: Performed By: #### B MP #### [address] [id number] GFR- AM. >60 Normal >60 [facility] Comment on above: Result Comment: CALC ULATIONS OF ESTIMATED GFR ARE PERFORMED USING THE MDRD STUDY EQUATION FOR THE IDMS-TRACEABLE CREATININE METHODS. CLIN CHEM 2007;53:766-72 Performed By: #### B MP #### [address] [id number] GFR-NON AM. >60 Normal >60 [facility] Comment on above: Performed By: #### B MP #### [address] [id number] Glucose [Mass/Vol] 99 mg/dL Normal 74 - 99 [facility] Comment on above: Performed By: #### B MP #### [address] [id number] HCO3 (Bld) [Moles/Vol] 25 mmol/L Normal 21 - 32 [facility] Comment on above: Performed By: #### B MP #### [address] [id number] Potassium [Moles/Vol] 3.7 mmol/L Normal 3.5 - 5.3 [facility] Comment on above: Performed By: #### B MP #### [address] [id number] Sodium [Moles/Vol] 137 mmol/L Normal 136 - 145 [facility] Comment on above: Performed By: #### B MP #### [address] [id number] Urea nitrogen [Mass/Vol] 15 mg/dL Normal 6 - 23 [facility] Comment on above: Performed By: #### B MP #### [address] [id number] CBC AND DIFFERENTIALon 04-02 % AUTOMATED IMMATURE GRAN 0.0 % Normal 0.0 - 0.9 [facility] Comment on above: Result Comment: Kath ture Granulocyte Count (IG) includes promyelocytes, myelocytes and metamyelocytes but does not include bands. Percent differential counts (%) should be interpreted in the context of the absolute cell counts (cells/L). Performed By: #### T ROP2 #### [address] [id number] Basophils (Bld) [#/Vol] 0.02 10*3/uL Normal 0.00 - 0.10 [facility] Comment on above: Performed By: #### T ROP2 #### [address] [id number] Basophils/100 WBC (Bld) 0.6 % Normal 0.0 - 2.0 [facility] Comment on above: Performed By: #### T ROP2 #### [address] [id number] Eosinophils (Bld) [#/Vol] 0.06 10*3/uL Normal 0.00 - 0.70 [facility] Comment on above: Performed By: #### T ROP2 #### [address] [id number] Eosinophils/100 WBC (Bld) 1.9 % Normal 0.0 - 6.0 [facility] Comment on above: Performed By: #### T ROP2 #### [address] [id number] Erythrocyte distribution width (RBC) [Ratio] 12.8 % Normal 11.5 - 14.5 [facility] Comment on above: Performed By: #### T ROP2 #### [address] [id number] Hematocrit (Bld) [Volume fraction] 38.2 % Low 41.0 - 52.0 [facility] Comment on above: Performed By: #### T ROP2 #### [address] [id number] Hemoglobin (Bld) [Mass/Vol] 12.8 g/dL Low 13.5 - 17.5 [facility] Comment on above: Performed By: #### T ROP2 #### [address] [id number] Lymphocytes (Bld) [#/Vol] 0.91 10*3/uL Low 1.20 - 4.80 [facility] Comment on above: Performed By: #### T ROP2 #### [address] [id number] Lymphocytes/100 WBC (Bld) 29.0 % Normal 13.0 - 44.0 [facility] Comment on above: Performed By: #### T ROP2 #### [address] [id number] MCHC (RBC) [Mass/Vol] 33.5 g/dL Normal 32.0 - 36.0 [facility] Comment on above: Performed By: #### T ROP2 #### [address] [id number] MCV (RBC) [Entitic vol] 85 fL Normal 80 - 100 [facility] Comment on above: Performed By: #### T ROP2 #### [address] [id number] Monocytes (Bld) [#/Vol] 0.33 10*3/uL Normal 0.10 - 1.00 [facility] Comment on above: Performed By: #### T ROP2 #### [address] [id number] Monocytes/100 WBC (Bld) 10.5 % Normal 2.0 - 10.0 [facility] Comment on above: Performed By: #### T ROP2 #### [address] [id number] Neutrophils (Bld) [#/Vol] 1.82 10*3/uL Normal 1.20 - 7.70 [facility] Comment on above: Performed By: #### T ROP2 #### [address] [id number] Neutrophils/100 WBC (Bld) 58.0 % Normal 40.0 - 80.0 [facility] Comment on above: Performed By: #### T ROP2 #### [address] [id number] Platelets (Bld) [#/Vol] 150 10*3/uL Normal 150 - 450 [facility] Comment on above: Performed By: #### T ROP2 #### [address] [id number] RBC 4.50 x10E12/L Normal 4.50 - 5.90 [facility] Comment on above: Performed By: #### T ROP2 #### [address] [id number] WBC (Bld) [#/Vol] 3.1 10*3/uL Low 4.4 - 11.3 [facility] Comment on above: Performed By: #### T ROP2 #### [address] [id number] CHEST 1 VIEWon 04-02-2021 CHEST 1 VIEW STUDY: Chest Radiograph; 04/01/2021 INDICATION: Upper right chest pain. COMPARISON: 03/23/2021 CXR. ACCESSION NUMBER(S): [id number] ORDERING CLINICIAN: URSULA CISNEROS MD TECHNIQUE: Frontal chest was obtained at 2244 hours. FINDINGS: CARDIOMEDIASTINAL SILHOUETTE: Cardiomediastinal silhouette is normal in size and configuration. LUNGS: Lungs are clear. ABDOMEN: No remarkable upper abdominal findings. BONES: No acute osseous changes. IMPRESSION: No acute thoracic findings. Signed by Kay Rodríguez II, MD Electronically signed by: KAY RODRÍGUEZ MD, PHD Normal [facility] Provider Note - ED [...] All o (more content not included)... Normal [facility] TROPONIN Ion 04-02-2021 Troponin I.cardiac [Mass/Vol] ng/mL Normal 0.00 - 0.03 [facility] Comment on above: Result [...] is performed using different testing methodology at [facility] than at other [facility]. Direct result comparisons should only be made within the same method. Performed By: #### T ROP2 #### [address] [id number] Triage - EDon 04-02-2021 Triage - ED Chart Review: ARRIVAL INFORMATION Mode of Arrival: ambulance Agency Name: [facility] CHIEF COMPLAINT HOSEA ALVAREZ is a Male [...] obeys commands Best Verbal Response: (V5) oriented Trona Score: 15 Cough lasting greater than 3 [...] Medical History Reviewedyes Electronic Signatures: Aneudy Oakley (RN) (Signed 01-Apr-2021 22:23) Authored: Quick Triage, Risk Screens, Pain, Travel History, Chart Review, Scores, Past Medical History Last Updated: 01-Apr-2021 22:23 by Aneudy Oakley (RN) Normal [facility] Complete Blood Count + Diffe ubaldo 04-01-2021 Basophils/100 WBC (Bld) 0.6 % 0.0 - 2.0 [facility] [employer] Work Phone: Erythrocyte distribution width (RBC) [Ratio] 12.8 % See Below [facility] Work Phone: Comment on above: Reference Range: 11. 5 - 14.5 Hematocrit (Bld) [Volume fraction] 38.2 % below low threshold See Below [facility] [employer] Work Phone: Comment on above: Reference Range: [...] 1.82 {x10E9/L} See Below [facility] [employer] Work Phone: Comment on above: Reference Range: 1.2 0 - 7.70 Complete Blood Count + Differential 1.9 % 0.0 - 6.0 [facility] [employer] Work Phone: Complete Blood Count + Differential 0.0 % 0.0 - 0.9 [facility] [employer] Work Phone: Comment on above: Immature Granulocyte [...] 8.6 - 10.3 [facility] [employer] Work Phone: Chloride [Moles/Vol] 103 mmol/L 98 - 107 [facility] 1800 Work Phone: CO2 [Moles/Vol] 25 mmol/L 21 - 32 [facility] 1800 Work Phone: Creatinine [Mass/Vol] 0.92 mg/dL See Below [facility] Work Phone: Comment on above: Reference Range: 0.5 0 - 1.30 Glucose [Mass/Vol] 99 mg/dL 74 - 99 [facility] 1800 Work Phone: Potassium [Moles/Vol] 3.7 mmol/L 3.5 - 5.3 [facility] Work Phone: Sodium [Moles/Vol] 137 mmol/L 136 - 145 [facility] 1800 Work Phone: Urea nitrogen [Mass/Vol] 15 mg/dL 6 - 23 [facility] Work Phone: No Panel Informationon 04-01 >60 >60 [facility] 1800 Work Phone: Comment on above: CALCULATIONS OF NIKOLE MATED GFR ARE PERFORMED USING THE MDRD STUDY EQUATION FOR THE IDMS-TRACEABLE CREATININE METHODS. CLIN CHEM 2007;53:766-72 [email or web address]?RetrieveTestByDateTim e?LlknpuzCC=[id number]&Da te=06-29-2021&Time=22%3a 30%3a28%3a00&TestType=EC G&Site=11&OutputType=PDF &Ext=PDF [facility] Work Phone: Normal sinus rhythm [facility]Va scular [facility] 1800 Work Phone: [phone] Normal [facility] 1800 Work Phone: [phone] [facility] Work Phone: [phone] [facility] 1800 Work Phone: [phone] [facility] Work Phone: [phone] [facility] 1800 Work Phone: [phone] [facility] 1800 Work Phone: 12 1 [facility] 1800 Work Phone: [phone] [facility] 1800 Work Phone: [phone] [facility] 1800 Work Phone: [phone] [facility] 1800 Work Phone: [phone] [facility] 1800 Work Phone: [phone] [facility] 1800 Work Phone: [phone] [facility] 1800 Work Phone: [phone] [facility] 1800 Work Phone: [phone] [facility] 1800 [...] is performed using different testing methodology at [facility] than at other [facility]. Direct result comparisons should only be made within the same method. CBC Auto DifferentialOrdered By: Tasneem Story on 03-30-2021 Basophils (Bld) [#/Vol] 0.0 10*3/uL 0.0 - 0.2 K/uL [employer] Phone: Basophils/100 WBC (Bld) 1.0 % [employer] Phone: Eosinophils (Bld) [#/Vol] 0.0 10*3/uL 0.0 - 0.7 K/uL [employer] Phone: Eosinophils/100 WBC (Bld) 1.7 % [employer] Phone: Hematocrit (Bld) [Volume fraction] 37.2 % Low 42.0 - 52.0 % [employer] Phone: Hemoglobin.gastrointe stinal spec 1 Ql (Stl) 12.4 g/dL Low 14.0 - 18.0 g/dL [employer] Phone: Interpretation and review of laboratory results Abnormal [employer] Phone: Lymphocytes (Bld) [#/Vol] 0.6 10*3/uL Low 1.0 - 4.8 K/uL [employer] Phone: Lymphocytes/100 WBC (Bld) 17.0 % [employer] Phone: MCH (RBC) [Entitic mass] 28.6 pg 27.0 - 31.3 pg [employer] Phone: MCHC (RBC) [Mass/Vol] 33.4 % 33.0 - 37.0 % [employer] Phone: MCV (RBC) [Entitic vol] 85.6 fL 80.0 - 100.0 fL [employer] Phone: Monocytes (Bld) [#/Vol] 0.4 10*3/uL 0.2 - 0.8 K/uL [employer] Phone: Monocytes/100 WBC (Bld) 12.2 % [employer] Phone: Neutrophils Absolute 2.4 K/uL 1.4 - 6 .5 K/uL [employer] Work Phone: Neutrophils/100 WBC (Bld) 70.0 % [employer] Work Phone: Platelet distribution width (Bld) [Ratio] 13.8 % 11.5 - 14.5 % [employer] Phone: PLATELET SLIDE REVIEW Normal [facility] [employer] Work Phone: Platelets (Bld) [#/Vol] 139 10*3/uL 130 - 400 K/uL [employer] Work Phone: RBC (Bld) [#/Vol] 4.35 10*6/uL Low [employer] Work Phone: RBC (Bld) [#/Vol] Normal [facility] Work Phone: WBC (Bld) [#/Vol] 3.4 10*3/uL Low 4.8 - 10.8 K/uL [employer] Phone: [employer] Phone: CBC With Platelet and Differ entialon 03-30-2021 Basophils (Bld) [#/Vol] 0.0 10*3/uL Normal 0.0-0.2 [facility] Comment on above: Performed By: #### C BCWD #### [facility] [address] [place] [address] RBC morphology finding Nom (Bld) Normal Normal [facility] Comment on above: Performed By: #### C BCWD #### [facility] [address] [place] [address] Basophils/100 WBC (Bld) 1.0 % Normal [facility] Comment on above: Performed By: #### C BCWD #### [facility] [address] [place] [address] Eosinophils (Bld) [#/Vol] 0.0 10*3/uL Normal 0.0-0.7 [facility] Comment on above: Performed By: #### C BCWD #### [facility] [address] [place] [address] Eosinophils/100 WBC (Bld) 1.7 % Normal [facility] Comment on above: Performed By: #### C BCWD #### [facility] [address] [place] [address] Erythrocyte distribution width (RBC) [Ratio] 13.8 % Normal 11.5-14.5 [facility] Comment on above: Performed By: #### C BCWD #### [facility] [address] [place] [address] Hematocrit (Bld) [Volume fraction] 37.2 % Low 42.0-52.0 [facility] Comment on above: Performed By: #### C BCWD #### [facility] [address] [place] [address] Hemoglobin (Bld) [Mass/Vol] 12.4 g/dL Low 14.0-18.0 [facility] Comment on above: Performed By: #### C BCWD #### [facility] [address] [place] [address] Lymphocytes (Bld) [#/Vol] 0.6 10*3/uL Low 1.0-4.8 [facility] Comment on above: Performed By: #### C BCWD #### [facility] [address] [place] [address] Lymphocytes/100 WBC (Bld) 17.0 % Normal [facility] Comment on above: Performed By: #### C BCWD #### [facility] [address] [place] [address] MCH (RBC) [Entitic mass] 28.6 pg Normal 27.0-31.3 [facility] Comment on above: Performed By: #### C BCWD #### [facility] [address] [place] [address] MCHC 33.4 % Normal 33.0-37.0 [facility] Comment on above: Performed By: #### C BCWD #### [facility] [address] [place] [address] MCV (RBC) [Entitic vol] 85.6 fL Normal 80.0-100.0 [facility] Comment on above: Performed By: #### C BCWD #### [facility] [address] [place] [address] Monocytes (Bld) [#/Vol] 0.4 10*3/uL Normal 0.2-0.8 [facility] Comment on above: Performed By: #### C BCWD #### [facility] [address] [place] [address] Monocytes/100 WBC (Bld) 12.2 % Normal [facility] Comment on above: Performed By: #### C BCWD #### [facility] [address] [place] [address] Neutrophils (Bld) [#/Vol] 2.4 10*3/uL Normal 1.4-6.5 [facility] Comment on above: Performed By: #### C BCWD #### [facility] [address] [place] [address] Neutrophils/100 WBC (Bld) 70.0 % Normal [facility] Comment on above: Performed By: #### C BCWD #### [facility] [address] [place] [address] Platelets (Bld) [#/Vol] 139 10*3/uL Normal 130-400 [facility] Comment on above: Performed By: #### C BCWD #### [facility] [address] [place] [address] RBC (Bld) [#/Vol] 4.35 10*6/uL Low 4.70-6.10 [facility] Comment on above: Performed By: #### C BCWD #### [facility] [address] [place] [address] WBC (Bld) [#/Vol] 3.4 10*3/uL Low 4.8-10.8 [facility] Comment on above: Performed By: #### C BCWD #### [facility] [address] [place] [address] Platelet Slide Review Normal Normal [facility] Comment on above: Performed By: #### C BCWD #### [facility] [address] [place] [address] Comprehensive Metabolic Pane bart 03-30-2021 Albumin [Mass/Vol] 4.1 g/dL Normal 3.5-4.6 [facility] Comment on above: Performed By: #### C BCWD #### [facility] [address] [place] [address] ALP [Catalytic activity/Vol] 63 U/L Normal 35-104 [facility] Comment on above: Performed By: #### C BCWD #### [facility] [address] [place] [address] ALT [Catalytic activity/Vol] 16 U/L Normal 0-41 [facility] Comment on above: Performed By: #### C BCWD #### [facility] [address] [place] [address] Anion gap [Moles/Vol] 8 mmol/L Low 9-15 [facility] Comment on above: Performed By: #### C BCWD #### [facility] [address] [place] [address] AST [Catalytic activity/Vol] 15 U/L Normal 0-40 [facility] Comment on above: Performed By: #### C BCWD #### [facility] [address] [place] [address] Bilirubin [Mass/Vol] 0.3 mg/dL Normal 0.2-0.7 [facility] Comment on above: Performed By: #### C BCWD #### [facility] [address] [place] [address] Calcium [Mass/Vol] 9.2 mg/dL Normal 8.5-9.9 [facility] Comment on above: Performed By: #### C BCWD #### [facility] [address] [place] [address] Chloride [Moles/Vol] 102 mmol/L Normal 95-107 [facility] Comment on above: Performed By: #### C BCWD #### [facility] [address] [place] [address] CO2 [Moles/Vol] 30 mmol/L Normal 20-31 [facility] Comment on above: Performed By: #### C BCWD #### [facility] [address] [place] [address] Creatinine [Mass/Vol] 0.84 mg/dL Normal 0.70-1.20 [facility] Comment on above: Performed By: #### C BCWD #### [facility] [address] [place] [address] GFR >60.0 Normal >60 [facility] Comment on above: Result Comment: >60 mL/min/1.73m2 EGFR, calc. for ages 18 and older using the MDRD formula (not corrected for weight), is valid for stable renal function. Performed By: #### C BCWD #### [facility] [address] [place] [address] GFR/1.73 sq M.predicted among blacks MDRD (S/P/Bld) [Vol rate/Area] mL/min/{1.73_m2} Normal >60 [facility] Comment on above: Result Comment: >60 mL/min/1.73m2 EGFR, calc. for ages 18 and older using the MDRD formula (not corrected for weight), is valid for stable renal function. Performed By: #### C BCWD #### [facility] [address] [place] [address] Globulin (S) [Mass/Vol] 2.9 g/dL Normal 2.3-3.5 [facility] Comment on above: Performed By: #### C BCWD #### [facility] [address] [place] [address] Glucose [Mass/Vol] 95 mg/dL Normal 70-99 [facility] Comment on above: Performed By: #### C BCWD #### [facility] [address] [place] [address] Potassium [Moles/Vol] 4.1 mmol/L Normal 3.4-4.9 [facility] Comment on above: Performed By: #### C BCWD #### [facility] [address] [place] [address] Protein [Mass/Vol] 7.0 g/dL Normal 6.3-8.0 [facility] Comment on above: Performed By: #### C BCWD #### [facility] [address] [place] [address] Sodium [Moles/Vol] 140 mmol/L Normal 135-144 [facility] Comment on above: Performed By: #### C BCWD #### [facility] [address] [place] [address] Urea nitrogen [Mass/Vol] 9 mg/dL Normal 6-20 [facility] Comment on above: Performed By: #### C BCWD #### [facility] [address] [place] [address] Comprehensive Metabolic Pane lOrdered By: Tasneem Story on 03-30-2021 Albumin [Mass/Vol] 4.1 g/dL 3.5 - 4.6 g/dL [facility] Phone: ALP (Bld) [Catalytic activity/Vol] 63 U/L 35 - 104 U/L [facility] Phone: ALT [Catalytic activity/Vol] 16 U/L 0 - 41 U/L [facility] Phone: Anion gap [Moles/Vol] 8 mmol/L Low [facility] [employer] Phone: AST [Catalytic activity/Vol] 15 U/L 0 - 40 U/L [facility] Phone: Bilirubin [Mass/Vol] 0.3 mg/dL 0.2 - 0 .7 mg/dL [facility] Work Phone: Calcium [Mass/Vol] 9.2 mg/dL 8.5 - 9.9 mg/dL [facility] Phone: Chloride [Moles/Vol] 102 mmol/L [facility] [employer] Work Phone: CO2 [Moles/Vol] 30 mmol/L [facility] Work Phone: Creatinine [Mass/Vol] 0.84 mg/dL 0.70 - 1.20 mg/dL [facility] Phone: Free PSA/Total PSA [Mass fraction] 7.0 g/dL 6.3 - 8.0 g/dL [facility] Phone: GFR >60.0 >60 [email or web address] Work Phone: Comment on above: >60 mL/min/1.73m2 EG FR, calc. for ages 18 and older using the MDRD formula (not corrected for weight), is valid for stable renal function. GFR Non- >60.0 >60 [facility] Work Phone: Comment on above: >60 mL/min/1.73m2 EG FR, calc. for ages 18 and older using the MDRD formula (not corrected for weight), is valid for stable renal function. Globulin (S) [Mass/Vol] 2.9 g/dL 2.3 - 3.5 g/dL [facility] Phone: Glucose [Mass/Vol] 95 mg/dL 70 - 99 mg/dL [facility] Phone: Interpretation and review of laboratory results Abnormal [facility] Work Phone: Potassium [Moles/Vol] 4.1 mmol/L [facility] [employer] Work Phone: Sodium [Moles/Vol] 140 mmol/L [employer] Phone: Urea nitrogen (BldV) [Mass/Vol] 9 mg/dL 6 - 20 mg/dL [employer] Phone: FL ESOPHAGRAMOrdered By: Gael Carter on 03-30-2021 Unremarkable esophagram. [employer] Phone: EXAMINATION: FL ESOPHAGRAM HISTORY: R13.10 Dysphagia, [...] Normal Other Findings: No other significant abnormality. [employer] Phone: Jaiden, po Incoming Radiant Results From [employer] - 03/30/2021 2:03 PM EDT EXAMINATION: FL [...] No other significant abnormality. IMPRESSION: Unremarkable esophagram. [employer] Phone: [employer] Phone: FL ESOPHAGRAMon 03-30-2021 [place] ESOPHAGRAM EXAMINATION: [...] Elgin Knowles MD 03/30/21 Final result Normal [facility] Magnesiumon 03-30-2021 Magnesium [Mass/Vol] 2.0 mg/dL Normal 1.7-2.4 [facility] Comment on above: Performed By: #### C BCWD #### [facility] [address] [place] [address] MagnesiumOrdered By: Tasneem Sauer ilslauren on 03-30-2021 Magnesium [Mass/Vol] 2.0 mg/dL 1.7 - 2 .4 mg/dL [facility] Phone: No Panel InformationOrdered By: Tasneem Story on 03-30-2021 [employer] Phone: Troponinon 03-30-2021 Troponin I.cardiac [Mass/Vol] ng/mL Normal 0.000-0.01 [facility] Comment on above: Result Comment: Meth odology by Troponin T. Performed By: #### C BCWD #### [facility] [address] [facility] [address] TroponinOrdered By: Tasneem Sigala lson on 03-30-2021 Troponin I.cardiac [Mass/Vol] ng/mL 0.000 - 0.010 ng/mL [facility] Phone: Comment on above: Methodology by Tropo jimmie Barron. [facility] Phone: XR CHEST PORTABLEon 03-30-20 XR CHEST PORTABLE EXAMINATION: XR CHES T PORTABLE CLINICAL HISTORY: CHEST COMPARISONS: MARCH 29, 2025 FINDINGS: Osseous structures intact. Cardiopericardial silhouette normal. Pulmonary vasculature normal. Lungs clear. IMPRESSION: NO ACUTE CARDIOPULMONARY DISEASE. Interpreted by: Max Atkins MD Signed by: Max Atkins MD 03/30/21 Final result Normal [facility] XR CHEST PORTABLEOrdered By: Tasneem Story on 03-30-2021 NO ACUTE CARDIOPULMO NARY DISEASE. [employer] Phone: EXAMINATION: XR CHES T PORTABLE CLINICAL HISTORY: CHEST COMPARISONS: MARCH 29, 2025 FINDINGS: Osseous structures intact. Cardiopericardial silhouette normal. Pulmonary vasculature normal. Lungs clear. [employer] Phone: Jaiden, Chpo Incoming Radiant Results From [employer] - 03/30/2021 1:39 PM EDT EXAMINATION: XR CHEST PORTABLE CLINICAL HISTORY: CHEST COMPARISONS: MARCH 29, 2025 FINDINGS: Osseous structures intact. Cardiopericardial silhouette normal. Pulmonary vasculature normal. Lungs clear. IMPRESSION: NO ACUTE CARDIOPULMONARY DISEASE. [employer] Phone: [employer] Phone: Alcoholon 03-29-2021 Blood Alcohol Concentration Not indicated Normal [facility] Comment on above: Performed By: #### A LCOH #### [facility] [address] [facility] [address] Ethanol [Mass/Vol] mg/dL Normal [facility] Comment on above: Performed By: #### A LCOH #### [facility] [address] [facility] [address] CBC Auto DifferentialOrdered By: Inez Valdes on 03-29-2021 Anisocytosis Ql (Bld) 1+ [facility] [employer] Phone: Bands Relative 3 % [employer] Work Phone: Basophils (Bld) [#/Vol] 0.0 10*3/uL 0.0 - 0.2 K/uL [employer] Phone: Basophils/100 WBC (Bld) 1.0 % [employer] Phone: Eosinophils (Bld) [#/Vol] 0.2 10*3/uL 0.0 - 0.7 K/uL [employer] Phone: Eosinophils/100 WBC (Bld) 5 % [employer] Phone: Hematocrit (Bld) [Volume fraction] 38.9 % Low 42.0 - 52.0 % [facility] Phone: Hemoglobin.gastrointe stinal spec 1 Ql (Stl) 12.9 g/dL Low 14.0 - 18.0 g/dL [facility] Phone: Interpretation and review of laboratory results Abnormal [facility] Phone: Lymphocytes (Bld) [#/Vol] 1.2 10*3/uL 1.0 - 4.8 K/uL [facility] Phone: Lymphocytes/100 WBC (Bld) 40.0 % [facility] Phone: MCH (RBC) [Entitic mass] 27.9 pg 27.0 - 31.3 pg [facility] Phone: MCHC (RBC) [Mass/Vol] 33.1 % 33.0 - 37.0 % [employer] Phone: MCV (RBC) [Entitic vol] 84.3 fL 80.0 - 100.0 fL [employer] Phone: Microcytes 1+ [employer] Phone: Monocytes (Bld) [#/Vol] 0.2 10*3/uL 0.2 - 0.8 K/uL [facility] Phone: Monocytes/100 WBC (Bld) 4.7 % [employer] Phone: Neutrophils Absolute 1.5 K/uL 1.4 - 6 .5 K/uL [facility] Phone: Neutrophils/100 WBC (Bld) 46.0 % [facility] Phone: Platelet distribution width (Bld) [Ratio] 14.0 % 11.5 - 14.5 % [facility] Phone: PLATELET SLIDE REVIEW Normal [facility] [employer] Phone: Platelets (Bld) [#/Vol] 147 10*3/uL 130 - 400 K/uL [facility] Phone: Promyelocytes Percent 1 % Abnormal [facility] [employer] Phone: RBC (Bld) [#/Vol] 4.62 10*6/uL Low [facility] Phone: Smudge Cells 3.7 [facility] Phone: WBC (Bld) [#/Vol] 3.0 10*3/uL Low 4.8 - 10.8 K/uL [facility] Phone: [employer] Phone: CBC With Platelet and Differ entialon 03-29-2021 Basophils (Bld) [#/Vol] 0.0 10*3/uL Normal 0.0-0.2 [facility] Comment on above: Performed By: #### C BCWD #### [facility] [address] [place] [address] Basophils/100 WBC (Bld) 1.0 % Normal [facility] Comment on above: Performed By: #### C BCWD #### [facility] [address] [place] [address] Eosinophils (Bld) [#/Vol] 0.2 10*3/uL Normal 0.0-0.7 [facility] Comment on above: Performed By: #### C BCWD #### [facility] [address] [place] [address] Eosinophils/100 WBC (Bld) 5.0 % Normal [facility] Comment on above: Performed By: #### C BCWD #### [facility] [address] [place] [address] Erythrocyte distribution width (RBC) [Ratio] 14.0 % Normal 11.5-14.5 [facility] Comment on above: Performed By: #### C BCWD #### [facility] [address] [place] [address] Hematocrit (Bld) [Volume fraction] 38.9 % Low 42.0-52.0 [facility] Comment on above: Performed By: #### C BCWD #### [facility] [address] [place] [address] Hemoglobin (Bld) [Mass/Vol] 12.9 g/dL Low 14.0-18.0 [facility] Comment on above: Performed By: #### C BCWD #### [facility] [address] [place] [address] Lymphocytes (Bld) [#/Vol] 1.2 10*3/uL Normal 1.0-4.8 [facility] Comment on above: Performed By: #### C BCWD #### [facility] [address] [place] [address] Lymphocytes/100 WBC (Bld) 40.0 % Normal [facility] Comment on above: Performed By: #### C BCWD #### [facility] [address] [place] [address] MCH (RBC) [Entitic mass] 27.9 pg Normal 27.0-31.3 [facility] Comment on above: Performed By: #### C BCWD #### [facility] [address] [place] [address] MCHC 33.1 % Normal 33.0-37.0 [facility] Comment on above: Performed By: #### C BCWD #### [facility] [address] [place] [address] MCV (RBC) [Entitic vol] 84.3 fL Normal 80.0-100.0 [facility] Comment on above: Performed By: #### C BCWD #### [facility] [address] [place] [address] Monocytes (Bld) [#/Vol] 0.2 10*3/uL Normal 0.2-0.8 [facility] Comment on above: Performed By: #### C BCWD #### [facility] [address] [place] [address] Monocytes/100 WBC (Bld) 4.7 % Normal [facility] Comment on above: Performed By: #### C BCWD #### [facility] [address] [place] [address] Neutrophils (Bld) [#/Vol] 1.5 10*3/uL Normal 1.4-6.5 [facility] Comment on above: Performed By: #### C BCWD #### [facility] [address] [place] [address] Neutrophils/100 WBC (Bld) 46.0 % Normal [facility] Comment on above: Performed By: #### C BCWD #### [facility] [address] [place] [address] Platelets (Bld) [#/Vol] 147 10*3/uL Normal 130-400 [facility] Comment on above: Performed By: #### C BCWD #### [facility] [address] [place] [address] RBC (Bld) [#/Vol] 4.62 10*6/uL Low 4.70-6.10 [facility] Comment on above: Performed By: #### C BCWD #### [facility] [address] [place] [address] WBC (Bld) [#/Vol] 3.0 10*3/uL Low 4.8-10.8 [facility] Comment on above: Performed By: #### C BCWD #### [facility] [address] [place] [address] Anisocytosis Ql (Bld) 1+ Normal [facility] Comment on above: Performed By: #### C BCWD #### [facility] [address] [place] [address] Bands 3 % Normal [facility] Comment on above: Performed By: #### C BCWD #### [facility] [address] [place] [address] Microcytic 1+ Normal [facility] Comment on above: Performed By: #### C BCWD #### [facility] [address] [place] [address] Platelet Slide Review Normal Normal [facility] Comment on above: Performed By: #### C BCWD #### [facility] [address] [place] [address] Promyelocyte 1 % Abnormal [facility] Comment on above: Performed By: #### C BCWD #### [facility] [address] [place] [address] Smudge Cells 3.7 Normal [facility] Comment on above: Performed By: #### C BCWD #### [facility] [address] [place] [address] Comprehensive Metabolic Pane bart 03-29-2021 Albumin [Mass/Vol] 4.3 g/dL Normal 3.5-4.6 [facility] Comment on above: Performed By: #### C MP #### [facility] [address] [place] [address] ALP [Catalytic activity/Vol] 68 U/L Normal 35-104 [facility] Comment on above: Performed By: #### C MP #### [facility] [address] [place] [address] ALT [Catalytic activity/Vol] 18 U/L Normal 0-41 [facility] Comment on above: Performed By: #### C MP #### [facility] [address] [place] [address] Anion gap [Moles/Vol] 10 mmol/L Normal 9-15 [facility] Comment on above: Performed By: #### C MP #### [facility] [address] [place] [address] AST [Catalytic activity/Vol] 20 U/L Normal 0-40 [facility] Comment on above: Performed By: #### C MP #### [facility] [address] [place] [address] Bilirubin [Mass/Vol] mg/dL Normal 0.2-0.7 [facility] Comment on above: Performed By: #### C MP #### [facility] [address] [place] [address] Calcium [Mass/Vol] 9.5 mg/dL Normal 8.5-9.9 [facility] Comment on above: Performed By: #### C MP #### [facility] [address] [place] [address] Chloride [Moles/Vol] 102 mmol/L Normal 95-107 [facility] Comment on above: Performed By: #### C MP #### [facility] [address] [place] [address] CO2 [Moles/Vol] 24 mmol/L Normal 20-31 [facility] Comment on above: Performed By: #### C MP #### [facility] [address] [place] [address] Creatinine [Mass/Vol] 0.80 mg/dL Normal 0.70-1.20 [facility] Comment on above: Performed By: #### C MP #### [facility] [address] [place] [address] GFR >60.0 Normal >60 [facility] Comment on above: Result Comment: >60 mL/min/1.73m2 EGFR, calc. for ages 18 and older using the MDRD formula (not corrected for weight), is valid for stable renal function. Performed By: #### C MP #### [facility] [address] [place] [address] GFR/1.73 sq M.predicted among blacks MDRD (S/P/Bld) [Vol rate/Area] mL/min/{1.73_m2} Normal >60 [facility] Comment on above: Result Comment: >60 mL/min/1.73m2 EGFR, calc. for ages 18 and older using the MDRD formula (not corrected for weight), is valid for stable renal function. Performed By: #### C MP #### [facility] [address] [place] [address] Globulin (S) [Mass/Vol] 2.8 g/dL Normal 2.3-3.5 [facility] Comment on above: Performed By: #### C MP #### [facility] [address] [place] [address] Glucose [Mass/Vol] 91 mg/dL Normal 70-99 [facility] Comment on above: Performed By: #### C MP #### [facility] [address] [place] [address] Potassium [Moles/Vol] 4.1 mmol/L Normal 3.4-4.9 [facility] Comment on above: Performed By: #### C MP #### [facility] [address] [place] [address] Protein [Mass/Vol] 7.1 g/dL Normal 6.3-8.0 [facility] Comment on above: Performed By: #### C MP #### [facility] [address] [place] [address] Sodium [Moles/Vol] 136 mmol/L Normal 135-144 [facility] Comment on above: Performed By: #### C MP #### [facility] [address] [place] [address] Urea nitrogen [Mass/Vol] 11 mg/dL Normal 6-20 [facility] Comment on above: Performed By: #### C MP #### [facility] [address] [place] [address] Comprehensive Metabolic Pane lOrdered By: Inez Valdes on 03-29-2021 Albumin [Mass/Vol] 4.3 g/dL 3.5 - 4.6 g/dL [facility] [employer] Work Phone: ALP (Bld) [Catalytic activity/Vol] 68 U/L 35 - 104 U/L [facility] Work Phone: ALT [Catalytic activity/Vol] 18 U/L 0 - 41 U/L [facility] Work Phone: Anion gap [Moles/Vol] 10 mmol/L [facility] Work Phone: AST [Catalytic activity/Vol] 20 U/L 0 - 40 U/L [facility] Work Phone: Bilirubin [Mass/Vol] mg/dL 0.2 - 0 .7 mg/dL [facility] Work Phone: Calcium [Mass/Vol] 9.5 mg/dL 8.5 - 9.9 mg/dL [facility] Work Phone: Chloride [Moles/Vol] 102 mmol/L [facility] [employer] Work Phone: CO2 [Moles/Vol] 24 mmol/L [facility] Work Phone: Creatinine [Mass/Vol] 0.8 mg/dL 0.70 - 1.20 mg/dL [facility] [employer] Work Phone: Free PSA/Total PSA [Mass fraction] 7.1 g/dL 6.3 - 8.0 g/dL [facility] [employer] Work Phone: GFR >60.0 >60 [facility] [employer] Work Phone: Comment on above: >60 mL/min/1.73m2 EG FR, calc. for ages 18 and older using the MDRD formula (not corrected for weight), is valid for stable renal function. GFR Non- >60.0 >60 [facility] [employer] Work Phone: Comment on above: >60 mL/min/1.73m2 EG FR, calc. for ages 18 and older using the MDRD formula (not corrected for weight), is valid for stable renal function. Globulin (S) [Mass/Vol] 2.8 g/dL 2.3 - 3.5 g/dL [facility] [employer] Work Phone: Glucose [Mass/Vol] 91 mg/dL 70 - 99 mg/dL [employer] Phone: Potassium [Moles/Vol] 4.1 mmol/L [facility] [employer] Phone: Sodium [Moles/Vol] 136 mmol/L [facility] Phone: Urea nitrogen (BldV) [Mass/Vol] 11 mg/dL 6 - 20 mg/dL [employer] Phone: [employer] Phone: EthanolOrdered By: Inez ratliff on 03-29-2021 Ethanol Lvl <10 mg/dL [employer] Phone: Ethanol percent Not indicated G/dL [employer] Phone: [employer] Phone: No Panel InformationOrdered By: Inez Valdes on 03-29-2021 [employer] Phone: PROCALCITONINOrdered By: Hannah Valdes on 03-29-2021 Procalcitonin 0.03 ng/mL 0.00 - 0.15 ng/mL [employer] Phone: Comment on above: Suspected Sepsis: Low [...] to determine the patient's Mortality Risk Prognosis (www.mtztqs-gxa-vxcmygfeea.com) In healthy neonates, plasma Procalcitonin (PCT) concentrations increase gradually after , reaching peak values at about 24 hours of age then decrease to normal values below 0.5 ng/mL by 48-72 hours of age. Procalcitoninon 03-29-2021 Procalcitonin 0.03 ng/mL Normal 0.00-0.15 [facility] Comment on above: Result Comment: Susp ected [...] to determine the patient's Mortality Risk Prognosis (www.xdrtot-joh-jvkxcfendr.[employer]) In healthy neonates, plasma Procalcitonin (PCT) concentrations increase gradually after , reaching peak values at about 24 hours of age then decrease to normal values below 0.5 ng/mL by 48-72 hours of age. Performed By: #### P ROCT #### [facility] [address] [facility] [address] Troponinon 03-29-2021 Troponin I.cardiac [Mass/Vol] ng/mL Normal 0.000-0.01 [facility] Comment on above: Result Comment: Meth odology by Troponin T. Performed By: #### T ROP #### [facility] [address] [facility] [address] TroponinOrdered By: Inez olivarez on 03-29-2021 Troponin I.cardiac [Mass/Vol] ng/mL 0.000 - 0.010 ng/mL [facility] [employer] Work Phone: Comment on above: Methodology by Isabelle [facility]UE[facility] Drugs of Abuse Panelon Drug Screen Comment see below Normal [facility] Comment on above: Result Comment: This method is a screening test to detect only these drug classes as part of a medical workup. Confirmatory testing by another method should be ordered if clinically indicated. Performed By: #### U DRGS #### [facility] [address] [place] [address] UR Amphetamines Screen Negative Normal Negative < [facility] Comment on above: Performed By: #### U DRGS #### [facility] [address] [place] [address] UR Barbiturates Screen Negative Normal Negative < [facility] Comment on above: Performed By: #### U DRGS #### [facility] [address] [place] [address] UR Benzo Screen Negative Normal Negative < [facility] Comment on above: Performed By: #### U DRGS #### [facility] [address] [place] [address] UR Cannabinoids Screen Negative Normal Negative < [facility] Comment on above: Performed By: #### U DRGS #### [facility] [address] [place] [address] UR Cocaine Screen Negative Normal Negative < [facility] Comment on above: Performed By: #### U DRGS #### [facility] [address] [place] [address] UR Methadone Screen Negative Normal Negative < [facility] Comment on above: Performed By: #### U DRGS #### [facility] [address] [place] [address] UR Opiates Screen Negative Normal Negative < [facility] Comment on above: Performed By: #### U DRGS #### [facility] [address] [place] [address] UR Oxycodone Screen Negative Normal Negative < [facility] Comment on above: Performed By: #### U DRGS #### [facility] [address] [place] [address] UR PCP Screen Negative Normal Negative < [facility] Comment on above: Performed By: #### U DRGS #### [facility] [address] [place] [address] UR Propoxyphene Screen Negative Normal Negative < [facility] Comment on above: Performed By: #### U DRGS #### [facility] [address] [place] [address] US ABDOMEN LIMITEDon 021 US ABDOMEN LIMITED [...] Elgin Knowles MD 03/30/21 Final result Normal [facility] Urine Drug ScreenOrdered By: Inez Valdes on 03-29-2021 Amphetamine Screen, Urine Negative Negative <1000 ng/mL [facility] Phone: Barbiturate Screen, Ur Negative Negative < 200 ng/mL [facility] Phone: Benzodiazepine Screen, Urine Negative Negative < 200 ng/mL [facility] Phone: Cannabinoid Scrn, Ur Negative Negativ e < 50 ng/mL [facility] Phone: Cocaine Metabolite Screen, Urine Negative Negative < 300 ng/mL [facility] Phone: Drug Screen Comment: see below [employer] Phone: Comment on above: This method is a scr eening test to detect only these drug classes as part of a medical workup. Confirmatory testing by another method should be ordered if clinically indicated. Methadone Screen, Urine Negative Negative <300 ng/mL [facility] Phone: Opiate Scrn, Ur Negative Negative < 300 ng/mL [facility] Phone: Oxycodone Urine Negative Negative <100 ng/mL [facility] Phone: PCP Screen, Urine Negative Negative < 25 ng/mL [facility] Phone: Propoxyphene Scrn, Ur Negative Negati ve <300 ng/mL [facility] Phone: [facility] Phone: XR CHEST PORTABLEon 03-29-20 XR CHEST [...] Yang Black MD 03/30/21 Final result Normal [facility] CBC AND DIFFERENTIALon 03-24 % AUTOMATED IMMATURE GRAN 0.5 % Normal 0.0 - 0.9 [facility] Comment on above: Result Comment: Kath ture Granulocyte Count (IG) includes promyelocytes, myelocytes and metamyelocytes but does not include bands. Percent differential counts (%) should be interpreted in the context of the absolute cell counts (cells/L). Performed By: #### C BCDF #### [address] [address] Basophils (Bld) [#/Vol] 0.02 10*3/uL Normal 0.00 - 0.10 [facility] Comment on above: Performed By: #### C BCDF #### [address] [address] Basophils/100 WBC (Bld) 0.5 % Normal 0.0 - 2.0 [facility] Comment on above: Performed By: #### C BCDF #### [address] [address] Eosinophils (Bld) [#/Vol] 0.07 10*3/uL Normal 0.00 - 0.70 [facility] Comment on above: Performed By: #### C BCDF #### [address] [address] Eosinophils/100 WBC (Bld) 1.9 % Normal 0.0 - 6.0 [facility] Comment on above: Performed By: #### C BCDF #### [address] [address] Erythrocyte distribution width (RBC) [Ratio] 13.0 % Normal 11.5 - 14.5 [facility] Comment on above: Performed By: #### C BCDF #### [address] [address] Hematocrit (Bld) [Volume fraction] 40.0 % Low 41.0 - 52.0 [facility] Comment on above: Performed By: #### C BCDF #### [address] [address] Hemoglobin (Bld) [Mass/Vol] 13.0 g/dL Low 13.5 - 17.5 [facility] Comment on above: Performed By: #### C BCDF #### [address] [address] Lymphocytes (Bld) [#/Vol] 0.97 10*3/uL Low 1.20 - 4.80 [facility] Comment on above: Performed By: #### C BCDF #### [address] [address] Lymphocytes/100 WBC (Bld) 26.4 % Normal 13.0 - 44.0 [facility] Comment on above: Performed By: #### C BCDF #### [address] [address] MCHC (RBC) [Mass/Vol] 32.5 g/dL Normal 32.0 - 36.0 [facility] Comment on above: Performed By: #### C BCDF #### [address] [address] MCV (RBC) [Entitic vol] 85 fL Normal 80 - 100 [facility] Comment on above: Performed By: #### C BCDF #### [address] [address] Monocytes (Bld) [#/Vol] 0.40 10*3/uL Normal 0.10 - 1.00 [facility] Comment on above: Performed By: #### C BCDF #### [address] [address] Monocytes/100 WBC (Bld) 10.9 % Normal 2.0 - 10.0 [facility] Comment on above: Performed By: #### C BCDF #### [address] [address] Neutrophils (Bld) [#/Vol] 2.20 10*3/uL Normal 1.20 - 7.70 [facility] Comment on above: Performed By: #### C BCDF #### [address] [address] Neutrophils/100 WBC (Bld) 59.8 % Normal 40.0 - 80.0 [facility] Comment on above: Performed By: #### C BCDF #### [address] [address] NUCLEATED RBC 0.0 /100 WBC Normal 0.0 - 0.0 [facility] Comment on above: Performed By: #### C BCDF #### [address] [address] Platelets (Bld) [#/Vol] 152 10*3/uL Normal 150 - 450 [facility] Comment on above: Performed By: #### C BCDF #### [address] [address] RBC 4.68 x10E12/L Normal 4.50 - 5.90 [facility] Comment on above: Performed By: #### C BCDF #### [address] [address] WBC (Bld) [#/Vol] 3.7 10*3/uL Low 4.4 - 11.3 [facility] Comment on above: Performed By: #### C BCDF #### [address] [address] CHEST 1 VIEWon 03-24-2021 CHEST 1 VIEW Patient Name: HOSEA ALVAREZ STUDY: CHEST 1 VIEW; 03/23/2021 10:50 pm INDICATION: Chest Pain. COMPARISON: 03/14/2021 ACCESSION NUMBER(S): [id number] ORDERING CLINICIAN: CHEO TIWARI FINDINGS: Cardiomegaly. The pulmonary vasculature is within normal limits. No consolidation, pleural effusion, or pneumothorax. IMPRESSION: Cardiomegaly without evidence of acute disease in the chest. Electronically signed by: ROBINA NIELSEN MD Normal [facility] COMPREHENSIVE PANELon 2020 Albumin [Mass/Vol] 4.3 g/dL Normal 3.4 - 5.0 [facility] Comment on above: Performed By: #### C MP #### [address] [address] ALP [Catalytic activity/Vol] 59 U/L Normal 33 - 120 [facility] Comment on above: Performed By: #### C MP #### [address] [address] ALT [Catalytic activity/Vol] 17 U/L Normal 10 - 52 [facility] Comment on above: Result Comment: Yanni ents treated with Sulfasalazine may generate falsely decreased results for ALT. Performed By: #### C MP #### [address] [address] Anion gap [Moles/Vol] 12 mmol/L Normal 10 - 20 [facility] Comment on above: Performed By: #### C MP #### [address] [address] AST [Catalytic activity/Vol] 15 U/L Normal 9 - 39 [facility] Comment on above: Performed By: #### C MP #### [address] [address] Bilirubin [Mass/Vol] 0.4 mg/dL Normal 0.0 - 1.2 [facility] Comment on above: Performed By: #### C MP #### [address] [address] Calcium [Mass/Vol] 9.0 mg/dL Normal 8.6 - 10.3 [facility] Comment on above: Performed By: #### C MP #### [address] [address] Chloride [Moles/Vol] 102 mmol/L Normal 98 - 107 [facility] Comment on above: Performed By: #### C MP #### [address] [address] Creatinine [Mass/Vol] 0.78 mg/dL Normal 0.50 - 1.30 [facility] Comment on above: Performed By: #### C MP #### [address] [address] GFR- AM. >60 Normal >60 [facility] Comment on above: Result Comment: CALC ULATIONS OF ESTIMATED GFR ARE PERFORMED USING THE MDRD STUDY EQUATION FOR THE IDMS-TRACEABLE CREATININE METHODS. CLIN CHEM 2007;53:766-72 Performed By: #### C MP #### [address] [address] GFR-NON AM. >60 Normal >60 [facility] Comment on above: Performed By: #### C MP #### [address] [address] Glucose [Mass/Vol] 94 mg/dL Normal 74 - 99 [facility] Comment on above: Performed By: #### C MP #### [address] [address] HCO3 (Bld) [Moles/Vol] 28 mmol/L Normal 21 - 32 [facility] Comment on above: Performed By: #### C MP #### [address] [address] Potassium [Moles/Vol] 4.0 mmol/L Normal 3.5 - 5.3 [facility] Comment on above: Performed By: #### C MP #### [address] [address] Protein [Mass/Vol] 6.8 g/dL Normal 6.4 - 8.2 [facility] Comment on above: Performed By: #### C MP #### [address] [address] Sodium [Moles/Vol] 138 mmol/L Normal 136 - 145 [facility] Comment on above: Performed By: #### C MP #### [address] [address] Urea nitrogen [Mass/Vol] 12 mg/dL Normal 6 - 23 [facility] Comment on above: Performed By: #### C MP #### [address] [address] D-DIMER, VTE EXCLUSIONon D-DIMER, VTE EXCLUSION 344 ng/mL FEU Normal < or = 500 [facility] Comment on above: Result Comment: The VTE [...] exclusion.) Performed By: #### D IMEX #### [address] [address] LIPASEon 03-24-2021 Lipase [Catalytic activity/Vol] 13 U/L Normal 9 - 82 [facility] Comment on above: Result Comment: Jocelyn puncture immediately after or during the administration of Metamizole may lead to falsely low results. Testing should be performed immediately prior to Metamizole dosing. H-aoftts-s-benzoquinone imine (metabolite of Acetaminophen) will generate erroneously low results in samples for patients that have taken toxic doses of acetaminophen. Performed By: #### L IPAS #### [address] [place] [address] MAGNESIUMon 03-24-2021 Magnesium [Mass/Vol] 2.00 mg/dL Normal 1.60 - 2.40 [facility] Comment on above: Performed By: #### M G #### [address] [place] [address] Provider Note - ED v2on Provider Note [...] is recommended to follow with his PCP, shoe polisher, vascular surgeon, site administrator regarding his chronic complaints. He is recommended to return to the ED with any persistent or worsening symptoms such as chest pain, extremity numbness or tingling or weakness, abdominal pain, or any other concerns. Patient in agreement and understanding of treatment plan. All questions answered. Patient stable at time of discharge. EKG with a rate of 68, sinus rhythm, left axis. NV 182 ms. QRS 98 ms. QTc 397 ms. There are NV depressions and minimal ST segment elevations in lead I and aVL as well as an inverted T wave in lead III. Similar when compared to previous EKG from 02/22/21 I reviewed the case with the attending ED physician. The attending ED physician agrees with the plan. Patient and/or patients district representative was counseled regarding labs, imaging, likely diagnosis, and plan. All questions were answered. Assessment: Hemorrhoids, constipation, chest tightness Disposition: discharge (more content not included)... Normal [facility] TROPONIN Ion 03-24-2021 TROPONIN I Canceled Normal [facility] Comment on above: Order Comment: TEST TROPONIN [...] is performed using different testing methodology at [facility] than [facility]. Direct result comparisons should only be made within the same method. Performed By: #### T ROP2 ####[id number] [facility] [place] [address] Troponin I.cardiac [Mass/Vol] ng/mL Normal 0.00 - 0.03 [facility] Comment on above: Result Comment: LESS THAN [...] is performed using different testing methodology at [facility] than at other [facility]. Direct result comparisons should only be made within the same method. Performed By: #### T ROP2 #### [facility] [address] [place] [address] Chart Updateon 03-23-2021 Chart Update Message Date: [...] Mar 23 2021 6:48PM EST (Author) Normal [employer] Complete Blood Count + Diffe rentialon 03-23-2021 Basophils/100 WBC (Bld) 0.5 % 0.0 - 2.0 [facility] Work Phone: Erythrocyte distribution width (RBC) [Ratio] 13.0 % See Below [facility] Work Phone: Comment on above: Reference Range: [...] U/L 33 - 120 [facility] [employer] Work Phone: [phone] ALT With P-5'-P [Catalytic activity/Vol] 17 U/L 10 - 52 [facility] [employer] Work Phone: [phone] Comment on above: Patients treated wit h Sulfasalazine may generate falsely decreased results for ALT. Anion gap [Moles/Vol] 12 mmol/L 10 - 20 [facility] [employer] Work Phone: [phone] AST With P-5'-P [Catalytic activity/Vol] 15 U/L 9 - 39 [facility] [employer] Work Phone: [phone] Bilirubin [Mass/Vol] 0.4 mg/dL 0.0 - 1.2 [facility] [employer] Work Phone: [phone] Calcium [Mass/Vol] 9.0 mg/dL 8.6 - 10.3 [facility] [employer] Work Phone: [phone] Chloride [Moles/Vol] 102 mmol/L 98 - 107 [facility] [employer] Work Phone: [phone] CO2 [Moles/Vol] 28 mmol/L 21 - 32 [facility] [employer] Work Phone: [phone] Creatinine [Mass/Vol] 0.78 mg/dL See Below [facility] [employer] Work Phone: [phone] Comment on above: Reference Range: 0.5 0 - 1.30 Glucose [Mass/Vol] 94 mg/dL 74 - 99 [facility] [employer] Work Phone: [phone] Potassium [Moles/Vol] 4.0 mmol/L 3.5 - 5.3 [facility] [employer] Work Phone: [phone] Protein [Mass/Vol] 6.8 g/dL 6.4 - 8.2 [facility] [employer] Work Phone: [phone] Sodium [Moles/Vol] 138 mmol/L 136 - 145 [facility] Work Phone: Urea nitrogen [Mass/Vol] 12 mg/dL 6 - 23 [facility] Work Phone: Lipase, Serumon 03-23-2021 Lipase [Catalytic activity/Vol] 13 U/L 9 - 82 [facility] Work Phone: Comment on above: Venipuncture immedia tely after or during the administration of Metamizole may lead to falsely low results. Testing should be performed immediately prior to Metamizole dosing. V-plscbu-s-benzoquinone imine (metabolite of Acetaminophen) will generate erroneously low results in samples for patients that have taken toxic doses of acetaminophen. Magnesium, Serumon 1 Magnesium [Mass/Vol] 2.00 mg/dL See Below [facility] [address] Work Phone: Comment on above: Reference Range: 1.6 0 - 2.40 No Panel Informationon 03-23 >60 >60 [facility] Work Phone: Comment on above: CALCULATIONS OF NIKOLE MATED GFR ARE PERFORMED USING THE MDRD STUDY EQUATION FOR THE IDMS-TRACEABLE CREATININE METHODS. CLIN CHEM 2007;53:766-72 344 {ng/mL_FEU} < or = 500 [facility] Work Phone: Comment on above: [...] assessment model for DVT or PE exclusion.) [email or web address]:80 [email or web address] ll?RetrieveTestByDateTim e?QeoacntKA=[id number]&Da te=09-29-2020&Time=23%3a 02%3a26%3a00&TestType=EC G&Site=12&OutputType=PDF &Ext=PDF [facility] Work Phone: Normal sinus rhythm [facility] Work Phone: Abnormal [facility] Work Phone: [phone] [facility] Work Phone: [phone] [facility] Work Phone: [phone] [facility] Work Phone: [phone] [facility] Work Phone: [phone] [facility] Work Phone: [phone] [facility] Work Phone: [phone] 1 [facility] Work Phone: -[phone] [facility] Work Phone: [phone] [facility] Work Phone: [phone] [facility] Work Phone: [phone] [facility] Work Phone: [phone] [facility] Work Phone: [phone] [facility] Work Phone: Office Visit (Cardiology)on 03-23-2021 Follow-up visit Diagnoses/Problems Assessed Chest pain (786.50) (R07.9) Ascending aortic aneurysm (441.2) (I71.2) Orders Ascending aortic aneurysm Follow-up PRN Outpatient Follow-up Status: Active Requested for: [id number] Patient Instructions You will need follow up for your ascending aortic aneurysm. As we discussed, I am dismssing you from my practice, but you can find a referral for a new shoe polisher through your primary care physician, or [facility], or any local hospital [facility]. Chief Complaint HOSEA ALVAREZ is being [...] visits with chest pain to ERs throughout [facility] since January of this year. He [...] he had a stress test with a shoe polisher in [place] two months ago, and was told it [...] Vital Signs Recorded: 23Mar2021 03:49PM Heart Rate90 Bxikdxyj443 Ndwwycmom39 Height5 ft 6 in Gshrvm788 lb BMI Tgpllgqybm27.34 kg/m2 BSA Calculated1.95 Tobacco Useb) No Fall Screeninga) No falls within the last year O2 Zyahosyifn30 Physical Exam CHEST: clear to auscultation, respiratory [...] Preferred Language for Discussing Health Care (patient/designee)Fran carver Advanced Directives: Advance Directive/DNRno Advance Directive Information [...] Learning Preferencesindividual instruction Cultural Considerationsnone Developmental Considerationsnone Mandaeism Considerationsnone Learning Assessment (Other Learner): Learning Assessment (Other Learner): Other learner availableno Pressure Injury/TB/Substance: Pressure Injury: Pressure Injury Present on Admissionno Do you have a coughno Substance Use Current or Former Historynever: Cigarette/Tobacco, e-Cigarette/Vaping, Alcohol, Street Drugs Admission Risk Screen: Significant IndicatorsComplete CAGE: CAGE: Is this an injured patient at a Trauma Center ([facility] [place]): no Electronic Signatures: Lor Wong (BR[place]NN) (Signed 23-Mar-2021 21:35) Authored: Preferred Language, Advanced Directives, Family Violence Adult, Learning Assessment (Patient), Learning Assessment (Other Learner), Pressure Injury/TB/Substance, Pressure Injury, CAGE Last Updated: 23-Mar-2021 21:35 by Lor Wong (RN) Normal [facility] Tobacco Screening.on 021 Fall risk assessment a) No falls within the last year [facility] Work Phone: Tobacco use status CP b) No redBus.in-Cardiology -[facility] [employer] [facility] 200 Work Phone: Triage - EDon 03-23-2021 [...] BMI (kg/m2): 30.544 Calculated BSA (m2) 2.00 [place] Coma Scale: Best Eye Response: (E4) spontaneous [...] 23-Mar-2021 21:29 by Lor Wong (BROOK[place]NN) Normal [facility] Troponin I, Serumon 03-23-20 Troponin I.cardiac [Mass/Vol] ng/mL See Below [facility] Work Phone: Comment on above: Reference Range: [...] is performed using different testing methodology at [facility] than at other [facility]. Direct result comparisons should only be [...] until 8 hours following last biotin administration. [employer] Anion gap [Moles/Vol] Anion Gap 15 MMOL/ L (0-19 MMOL/L) 0 - 19 MMOL/L [employer] Calcium [Mass/Vol] Calcium 9.0 MG/DL (8.5-10.4 MG/DL) [...] under 18 years of age. Performed at [address] [address] [facility] Glucose [Mass/Vol] Glucose 93 MG/DL (65 -99 MG/DL) 65 - 99 MG/DL [facility] Potassium [Moles/Vol] Potassium R 4.1 MM OL/L (3.4-5.1 MMOL/L) 3.4 - 5.1 MMOL/L [facility] Sodium [Moles/Vol] Sodium 137 MMOL/L (133-145 MMOL/L) 133 - 145 MMOL/L [facility] Troponin T.cardiac [Mass/Vol] HS Troponin T,Gen [...] until 8 hours following last biotin administration. [facility] Urea nitrogen [Mass/Vol] BUN 12 MG/DL (8-25 MG/DL) 8 - 25 MG/DL [facility] Urea nitrogen/Creatinine [Mass ratio] BUN Creatinine Ratio 15.0 RATIO (8-21 RATIO) 8 - 21 RATIO [facility] Laboratory - Hematology and Cell countson 03-22-2021 Basophils (Bld) [#/Vol] Abs Baso 0.01 K/UL (0.00-0.22 K/UL) 0.00 - 0.22 K/UL [facility] Basophils/100 WBC (Bld) Basophil 0.30 % (0-1 %) 0 - 1 % [employer] Differential cell count method Nom (Bld) Diff Type AUTO DIFF (Reference Range: not available) [facility] Eosinophils (Bld) [#/Vol] Abs Eos 0.08 K/UL (0-0.45 K/UL) 0 - 0.45 K/UL [employer] Eosinophils/100 WBC (Bld) Eosinophil 2.70 % (0-3 %) 0 - 3 % [employer] Erythrocyte distribution width (RBC) [Entitic vol] RDW SD 38.5 FL (37.0-54.0 FL) 37.0 - 54.0 FL [employer] Erythrocyte distribution width (RBC) [Ratio] RDW CV 12.6 % (11.7-15.0 %) 11.7 - 15.0 % [employer] Hematocrit (Bld) [Volume fraction] HCT 41.4 % (41-50 %) 41 - 50 % [employer] Hemoglobin (Bld) [Mass/Vol] HGB 13.6 GM/DL (13.5-16.5 GM/DL) 13.5 - 16.5 GM/DL [employer] Immature granulocytes (Bld) [#/Vol] Abs Imm Neut 0.02 K/UL (0.0-0.1 K/UL) 0.0 - 0.1 K/UL [employer] Lymphocytes (Bld) [#/Vol] Abs Lymph 0.75 K/UL L (1.2-3.2 K/UL) Low 1.2 - 3.2 K/UL [employer] Lymphocytes/100 WBC (Bld) Lymphocyte 25.40 % (20-40 %) 20 - 40 % [employer] MCH (RBC) [Entitic mass] MCH 27.9 PG (26-34 PG) 26 - 34 PG [facility] MCHC (RBC) [Mass/Vol] MCHC 32.9 % (31-37 %) 31 - 37 % S MCV (RBC) [Entitic vol] MCV 85.0 FL (80-100 FL) 80 - 100 FL [facility] Monocytes (Bld) [#/Vol] Abs Wilbarger 0.35 K/UL (0-0.8 K/UL) 0 - 0.8 K/UL [facility] Monocytes/100 WBC (Bld) Monocyte 11.90 % H (0-8 %) High 0 - 8 % [facility] Neutrophils (Bld) [#/Vol] Abs.Neut.Calculated 1.74 K/UL (Reference Range: not available) Performed at [address] [address] [facility] Neutrophils (Bld) [#/Vol] Abs Neut 1.74 K/UL L (1.8-7.7 K/UL) Low 1.8 - 7.7 K/UL [facility] Neutrophils.immature/ 100 WBC (Bld) Immature Neut % 0.70 % (0.0-1.0 %) 0.0 - 1.0 % [facility] Nucleated RBC/100 WBC (Bld) [Ratio] NRBCs 0 /100 WBC (0 /100 WBC) [facility] Platelet mean volume (Bld) [Entitic vol] MPV 11.4 CU (7.0-12.6 CU) 7.0 - 12.6 CU [facility] Platelets (Bld) [#/Vol] PLT 177 K/UL (150-450 K/UL) 150 - 450 K/UL [facility] RBC (Bld) [#/Vol] RBC 4.87 M/UL (4.5-5 .5 M/UL) 4.5 - 5.5 M/UL [facility] Segmented neutrophils/100 WBC (Bld) Granulocyte 59.00 % (50-70 %) 50 - 70 % [facility] WBC (Bld) [#/Vol] WBC 3.0 K/UL L (4.5- 11.0 K/UL) Low 4.5 - 11.0 K/UL [facility] No Panel Informationon 03-22 HS Troponin T Delta 0 (0-4 ) Performed at [address] [address] 0 - 4 [facility] XR Chest Portable (1view) (Reference Range: not available) *FINAL Date of Service: 03/22/2021 04:53 Adm #: [id number] Reading Dr:FAITH PACK Signoff Dr: FAITH PACK PROCEDURE: CHEST PORTABLE - WXR 0018 REASON FOR EXAM: Chest Pain RESULT: CLINICAL HISTORY: Chest pain/Covid positive/smoker/hyperten jayy COMPARISON: 03/17/2021 FINDINGS: The cardiomediastinal silhouette is stable. The lungs are clear. No pleural effusion is identified. The osseous structures are intact. IMPRESSION: No acute cardiopulmonary process. [id number] This report has been produced using speech recognition. Original Interpreting Physician: FAITH PACK MD Original Transcribed [facility]/Date[facility] Mar 22 2021 8:00A Original Electronically Signed by/Date: FAITH PACK MD Mar 22 2021 8:00A Addendum Interpreting Physician: Addendum Transcribed by/Date: NO ADDENDUM Addendum Electronically Signed by/Date: [facility] HS Troponin T Delta 0 (0-4 ) Performed at [address] [address] 0 - 4 [facility] EKG (Reference Range : not available) Ventricular Rate : 78 BPM Atrial Rate : 78 BPM P-R Interval : 178 ms QRS Duration : 100 ms Q-T Interval : 362 ms QTC Calculation(Bazett) : 412 ms Calculated P [place] : 34 degrees Calculated R [place] : -15 degrees Calculated T [place] : 15 degrees Diagnosis: Poor data quality, interpretation may be adversely affected Normal sinus rhythm Normal ECG When compared with ECG of 17-MAR-2021 19:42, No significant change was found Confirmed by CHERYL CULLEN ([id number]) on 03/22/2021 1:51:20 PM See also the report from this date [facility] Laboratory - Chemistry and C hemistry - challengeon 03-18-2021 Albumin [Mass/Vol] Albumin 3.7 GM/DL (3.5-5.0 GM/DL) 3.5 - 5.0 GM/DL [facility] Albumin/Globulin [Mass ratio] Albumin Globulin Ratio 1.5 RATIO (1.5-3.0 RATIO) Performed at [address] [address] 1.5 - 3.0 RATIO [facility] ALP (Bld) [Catalytic activity/Vol] Alk Phosphatase 52 U/L (35-125 U/L) 35 - 125 U/L [facility] ALT [Catalytic activity/Vol] ALT 18 U/L (5-40 U/L) 5 - 40 U/L [facility] AST [Catalytic activity/Vol] AST 20 U/L (5-40 U/L) 5 - 40 U/L [facility] Bilirubin [Mass/Vol] Total Bilirubin 0.2 MG/DL (0.1-1.2 MG/DL) 0.1 - 1.2 MG/DL [facility] Bilirubin.direct [Mass/Vol] Direct Bilirubin 0.2 MG/DL (0.0-0.2 MG/DL) LESS THAN 0.0 - 0.2 MG/DL [facility] Bilirubin.indirect [Mass/Vol] Indirect Bilirubin 0.0 MG/DL (0-0.8 MG/DL) 0 - 0.8 MG/DL [facility] Globulin (S) [Mass/Vol] Globulin 2.4 G/DL (1.9-3.7 G/DL) 1.9 - 3.7 G/DL [facility] Lactate (BldV) [Moles/Vol] Lactic Acid (Venous) 1.3 MMOL/L (0.9-1.7 MMOL/L) Performed at [address] [address] 0.9 - 1.7 MMOL/L [facility] Protein [Mass/Vol] Total Protein 6.1 G/ DL (5.9-7.9 G/DL) 5.9 - 7.9 G/DL [facility] Bilirubin [Mass/Vol] Total Bilirubin 0.2 MG/DL (0.1-1.2 MG/DL) Performed at [address] [address] 0.1 - 1.2 MG/DL [facility] Lactate (BldV) [Moles/Vol] Lactic Acid (Venous) 1.0 MMOL/L (0.9-1.7 MMOL/L) Performed at [address] [address] 0.9 - 1.7 MMOL/L [facility] Troponin T.cardiac [Mass/Vol] HS Troponin T,Gen [...] until 8 hours following last biotin administration. [facility] Laboratory - Hematology and Cell countson 03-18-2021 Basophils (Bld) [#/Vol] Abs Baso 0.02 K/UL (0.00-0.22 K/UL) 0.00 - 0.22 K/UL [employer] Basophils/100 WBC (Bld) Basophil 0.50 % (0-1 %) 0 - 1 % [facility] Differential cell count method Nom (Bld) Diff Type AUTO DIFF (Reference Range: not available) [facility] Eosinophils (Bld) [#/Vol] Abs Eos 0.07 K/UL (0-0.45 K/UL) 0 - 0.45 K/UL [facility] Eosinophils/100 WBC (Bld) Eosinophil 1.90 % (0-3 %) 0 - 3 % [facility] Erythrocyte distribution width (RBC) [Entitic vol] RDW SD 39.4 FL (37.0-54.0 FL) 37.0 - 54.0 FL [facility] Erythrocyte distribution width (RBC) [Ratio] RDW CV 12.6 % (11.7-15.0 %) 11.7 - 15.0 % [employer] Hematocrit (Bld) [Volume fraction] HCT 36.2 % L (41-50 %) Low 41 - 50 % [facility] Hemoglobin (Bld) [Mass/Vol] HGB 11.5 GM/DL L (13.5-16.5 GM/DL) Low 13.5 - 16.5 GM/DL [facility] Immature granulocytes (Bld) [#/Vol] Abs Imm Neut 0.01 K/UL (0.0-0.1 K/UL) 0.0 - 0.1 K/UL [facility] Lymphocytes (Bld) [#/Vol] Abs Lymph 1.03 K/UL L (1.2-3.2 K/UL) Low 1.2 - 3.2 K/UL [facility] Lymphocytes/100 WBC (Bld) Lymphocyte 27.80 % (20-40 %) 20 - 40 % S MCH (RBC) [Entitic mass] MCH 27.4 PG (26-34 PG) 26 - 34 PG S MCHC (RBC) [Mass/Vol] MCHC 31.8 % (31-37 %) 31 - 37 % S MCV (RBC) [Entitic vol] MCV 86.4 FL (80-100 FL) 80 - 100 FL S Monocytes (Bld) [#/Vol] Abs Wilbarger 0.45 K/UL (0-0.8 K/UL) 0 - 0.8 K/UL [facility] Monocytes/100 WBC (Bld) Monocyte 12.10 % H (0-8 %) High 0 - 8 % [facility] Neutrophils (Bld) [#/Vol] Abs.Neut.Calculated 2.13 K/UL (Reference Range: not available) Performed at [address] [address] [facility] Neutrophils (Bld) [#/Vol] Abs Neut 2.13 K/UL (1.8-7.7 K/UL) 1.8 - 7.7 K/UL [facility] Neutrophils.immature/ 100 WBC (Bld) Immature Neut % 0.30 % (0.0-1.0 %) 0.0 - 1.0 % [facility] Nucleated RBC/100 WBC (Bld) [Ratio] NRBCs 0 /100 WBC (0 /100 WBC) [facility] Platelet mean volume (Bld) [Entitic vol] MPV 10.9 CU (7.0-12.6 CU) 7.0 - 12.6 CU [facility] Platelets (Bld) [#/Vol] PLT 141 K/UL L (150-450 K/UL) Low 150 - 450 K/UL S RBC (Bld) [#/Vol] RBC 4.19 M/UL L (4.5 -5.5 M/UL) Low 4.5 - 5.5 M/UL S Segmented neutrophils/100 WBC (Bld) Granulocyte 57.40 % (50-70 %) 50 - 70 % S WBC (Bld) [#/Vol] WBC 3.7 K/UL L (4.5- 11.0 K/UL) Low 4.5 - 11.0 K/UL S No Panel Informationon 03-18 HS Troponin T Delta 0 (0-4 ) Performed at [address] [address] - 4 [facility] Office Visit (Internal Medic ine)on 03-15-2021 [...] Status: Hold For - Scheduling Requested for: 15Mar2021 Ordered;For: Esophageal spasm, GERD (gastroesophageal reflux disease); Ordered By: Viral Amado Performed: Due: [id number] Essential hypertension, Renal artery stenosis Renew: Losartan Potassium 50 MG Oral Tablet; TAKE 1 TABLET DAILY Rx By: Viral Amado; Dispense: 30 Days ; #:30 Tablet; Refill: 1;For: Essential hypertension, Renal artery stenosis; JOSE = N; Sent To: [facility] Health Maintenance Osteopathic Manipulation Treatment Evaluation and Treatment Evaluate AND Treat Status: Hold For - Scheduling Requested for: [id number] Ordered;For: Health Maintenance; Ordered By: Viral Amado Performed: Due: [id number] Pancytopenia Benign Hematology Referral Evaluation and Treatment Evaluate AND Treat Status: Hold For - Scheduling Requested for: [id number] Ordered;For: Pancytopenia; Ordered By: Viral Amado Performed: Due: [id number] o Renal artery stenosis Nephrology Referral Evaluation and Treatment Evaluate AND Treat Status: Hold For - Scheduling Requested for: [id number] Ordered;For: Renal artery stenosis; Ordered By: Viral Amado Performed: Due: [id number] Provider Impressions Patient is a 50-year-old male [...] delivered by entirely different geographical areas in [place] (which is unusual). Of note he has been to multiple ERs including the [place] emergency room [facility] emergency room GI.emergency room [facility] emergency room for similar complaints and similar [...] 30-day medical note to provide to the renal social worker team in [facility] in order to get services Explained that we cannot provide letters simply to obtain renal social worker Patient is to follow-up with gastroenterology for his upper endoscopy If there is a reasonable medical needed for 30 days off of work such a letter can be written Cardiac etiology has been ruled out Referral for OMM Please have your physicians in [place] provide all necessary documents regarding her care [...] He curren (more content not included)... Normal [facility] Tobacco Screening.on 021 Fall risk assessment a) No falls within the last year [facility] Phone: Tobacco use status CPHS a) Yes [facility] Phone: Complete Blood Count + Diffe rentialon 03-14-2021 Basophils/100 WBC (Bld) 0.7 % 0.0 - 2.0 [facility] Phone: Erythrocyte distribution width (RBC) [Ratio] 12.8 % See Below [facility] Phone: Comment on above: Reference Range: 11. 5 - 14.5 Hematocrit (Bld) [Volume fraction] 39.5 % below low threshold See Below [facility] Phone: Comment on above: Reference Range: 41. 0 - 52.0 Hemoglobin (Bld) [Mass/Vol] 13.7 g/dL See Below [facility] Phone: Comment on above: Reference Range: 13. 5 - 17.5 Lymphocytes/100 WBC (Bld) 26.1 % See Below [facility] [employer] Work Phone: [phone] Comment on above: Reference Range: 13. 0 - 44.0 MCHC (RBC) [Mass/Vol] 34.7 g/dL See Below [facility] [employer] Work Phone: [phone] Comment on above: Reference Range: 32. 0 - 36.0 MCV (RBC) [Entitic vol] 83 fL 80 - 100 [facility] [employer] Work Phone: [phone] Monocytes/100 WBC (Bld) 10.7 % 2.0 - 10.0 [facility] [employer] Work Phone: [phone] Neutrophils/100 WBC (Bld) 60.9 % See Below [facility] [employer] Phone: [phone] Comment on above: Reference Range: 40. 0 - 80.0 Platelets (Bld) [#/Vol] 153 10*3/uL 150 - 450 [facility] [employer] Work Phone: [phone] RBC (Bld) [#/Vol] 4.75 {x10E12/L} See Below [facility] [employer] Work Phone: [phone] Comment on above: Reference Range: 4.5 0 - 5.90 WBC (Bld) [#/Vol] 4.4 10*3/uL 4.4 - 11.3 [facility] [employer] Work Phone: [phone] Complete Blood Count + Differential 0.03 {x10E9/L} See Below [facility] [employer] Work Phone: [phone] Comment on above: Reference Range: 0.0 0 - 0.10 Complete Blood Count + Differential 0.06 {x10E9/L} See Below [facility] [employer] Work Phone: Comment on above: Reference Range: 0.0 0 - 0.70 Complete Blood Count + Differential 0.47 {x10E9/L} See Below [facility] [employer] Phone: Comment on above: Reference Range: 0.1 0 - 1.00 Complete Blood Count + Differential 1.15 {x10E9/L} below low threshold See Below [employer] Phone: Comment on above: Reference Range: 1.2 0 - 4.80 Complete Blood Count + Differential 2.68 {x10E9/L} See Below [facility] [employer] Phone: Comment on above: Reference Range: 1.2 0 - 7.70 Complete Blood Count + Differential 1.4 % 0.0 - 6.0 [facility] [employer] Phone: Complete Blood Count + Differential 0.2 % 0.0 - 0.9 [facility] [employer] Phone: Comment on above: Immature Granulocyte Count (IG) includes promyelocytes, myelocytes and metamyelocytes but does not include bands. Percent differential counts (%) should be interpreted in the context of the absolute cell counts (cells/L). Complete Blood Count + Differential 0.0 {/100_WBC} 0.0-0.0 [facility] [employer] Phone: Laboratory - Chemistry and C hemistry - challengeon 03-14-2021 Albumin BCP dye [Mass/Vol] 4.4 g/dL 3.4 - 5.0 [facility] [employer] Phone: ALP [Catalytic activity/Vol] 54 U/L 33 - 120 [facility] [employer] Phone: ALT With P-5'-P [Catalytic activity/Vol] 20 U/L 10 - 52 [facility] [employer] Phone: Comment on above: Patients treated wit h Sulfasalazine may generate falsely decreased results for ALT. Anion gap [Moles/Vol] 12 mmol/L 10 - 20 [facility] [employer] Work Phone: AST With P-5'-P [Catalytic activity/Vol] 19 U/L 9 - 39 [facility] [employer] Phone: Bilirubin [Mass/Vol] 0.5 mg/dL 0.0 - 1.2 [facility] [employer] Work Phone: Calcium [Mass/Vol] 9.8 mg/dL 8.6 - 10.6 [facility] [employer] Work Phone: Chloride [Moles/Vol] 103 mmol/L 98 - 107 [facility] [employer] Work Phone: CO2 [Moles/Vol] 28 mmol/L 21 - 32 [facility] [employer] Work Phone: Creatinine [Mass/Vol] 0.87 mg/dL See Below [facility] [employer] Work Phone: Comment on above: Reference Range: 0.5 0 - 1.30 Glucose [Mass/Vol] 73 mg/dL below low threshold 74 - 99 [facility] [employer] Work Phone: Potassium [Moles/Vol] 3.9 mmol/L 3.5 - 5.3 [facility] [employer] Phone: Protein [Mass/Vol] 7.3 g/dL 6.4 - 8.2 [facility] [employer] Work Phone: Sodium [Moles/Vol] 139 mmol/L 136 - 145 [facility] [employer] Work Phone: Urea nitrogen [Mass/Vol] 12 mg/dL 6 - 23 [facility] [employer] Phone: MRI Cardiac w/wo contrast fo r Morph/Funct and Valve Dzon 03-14-2021 MRI Cardiac w/wo contrast for Morph/Funct and Valve Dz [facility] [employer] Work Phone: MRI Cardiac w/wo contrast wi th Regadenoson stress for Morph/Funct and Valve Dzon 03-14-2021 MRI Cardiac w/wo contrast with Regadenoson stress for Morph/Funct and Valve Dz Please click on the link to view the study images [facility] [employer] Phone: No Panel Informationon 03-14 11 pg/mL 0 - 99 [facility] [employer] Phone: Comment on above: . <100 pg/mL - Heart failure [id number] pg/mL - Intermediate probability of acute heart. [...] local laboratory for further information. >60 >60 [facility] [employer] Work Phone: Comment on above: CALCULATIONS OF NIKOLE MATED GFR ARE PERFORMED USING THE MDRD STUDY EQUATION FOR THE IDMS-TRACEABLE CREATININE METHODS. CLIN CHEM 2007;53:766-72 [email or web address] [email or web address]?RetrieveTestByDateTim e?RdowfaySL=[id number]&Da te=14-03-2021&Time=17%3a 27%3a08%3a00&TestType=EC G&Site=1&OutputType=PDF& Ext=PDF [facility] [employer] Work Phone: Please see ED Provid er Note for formal interpretation [facility] [employer] Work Phone: Normal [facility] [employer] Work Phone: [phone] [facility] [employer] Work Phone: [phone] [facility] [employer] Work Phone: [phone] [facility] [employer] Work Phone: [phone] [facility] [employer] Work Phone: [phone] [facility] [employer] Work Phone: [phone] [facility] [employer] Work Phone: [phone] [facility] [employer] Work Phone: [phone] [facility] [employer] Work Phone: [phone] [facility] [employer] Work Phone: [phone] [facility] [employer] Work Phone: [phone] [facility] [employer] Work Phone: [phone] [facility] [employer] Work Phone: [phone] [facility] [employer] Work Phone: [phone] [facility] [employer] Work Phone: [email or web address]?RetrieveTestByDateTim e?QhbnknmWL=[id number]&Da te=14-03-2021&Time=13%3a 38%3a10%3a00&TestType=EC G&Site=1&OutputType=PDF& Ext=PDF [facility] [employer] Work Phone: Please see ED Provid er Note for formal interpretation [facility] [employer] Work Phone: Normal [facility] [employer] Work Phone: [phone] [facility] [employer] Work Phone: [phone] [facility] [employer] Work Phone: [phone] [facility] [employer] Work Phone: [phone] [facility] [employer] Work Phone: [phone] [facility] [employer] Work Phone: [phone] [facility] [employer] Work Phone: [phone] [facility] [employer] Work Phone: [phone] [facility] [employer] Work Phone: [phone] [facility] [employer] Work Phone: [phone] [facility] [employer] Work Phone: [phone] [facility] [employer] Work Phone: [phone] [facility] [employer] Work Phone: [phone] [facility] [employer] Work Phone: [phone] [facility] [employer] Work Phone: Radiologyon 03-14-2021 XR Chest Single view Normal [facility] [employer] Work Phone: Troponin I, Serumon 03-14-20 21 Troponin I.cardiac [Mass/Vol] ng/mL See Below [facility] [employer] Work Phone: Comment on above: Reference Range: [...] is performed using different testing methodology at [facility] than at other [facility]. Direct result comparisons should only be made within the same method.. Biotin interference may cause falsely decreased results. Patients taking a Biotin dose of up to 5 mg/day should refrain from taking Biotin for 24 hours before sample collection. Providers may contact their laboratory for further information. URINALYSIS WITH CULTURE IF I NDICATEDon 03-14-2021 Color (U) YELLOW See Below [facility] [employer] Work Phone: Comment on above: Reference Range: STR AW,YELLOW Glucose Ql (U) Negative NEGATIVE [facility] [employer] Work Phone: Ketones Ql (U) Negative NEGATIVE [facility] [employer] Phone: Leukocyte esterase Test strip Ql (U) Negative NEGATIVE [facility] [employer] Phone: pH (U) 5.0 [pH] 5.0 - 8.0 [facility] [employer] Phone: Protein (U) [Mass/Vol] Negative NEGATIVE [facility] [employer] Work Phone: RBC (U) [#/Vol] Negative NEGATIVE [facility] [employer] Work Phone: Specific gravity (U) [Rel density] 1.012 1 See Below [facility] [employer] Phone: Comment on above: Reference Range: 1.0 05 - 1.035 URINALYSIS WITH CULTURE IF INDICATED Negative NEGATIVE [facility] [employer] Phone: URINALYSIS WITH CULTURE IF INDICATED <2.0 0.0 - 1.9 [facility] [employer] Phone: URINALYSIS WITH CULTURE IF INDICATED CLEAR CLEAR [facility] [employer] Work Phone: BASIC METABOLIC PANELon 02-21 Anion gap [Moles/Vol] 13 mmol/L Normal 10 - 20 [facility] Comment on above: Performed By: #### B MP #### [facility] [address] [place] [address] Calcium [Mass/Vol] 9.0 mg/dL Normal 8.6 - 10.3 [facility] Comment on above: Performed By: #### B MP #### [facility] [address] [place] [address] Chloride [Moles/Vol] 100 mmol/L Normal 98 - 107 [facility] Comment on above: Performed By: #### B MP #### [facility] [address] [place] [address] Creatinine [Mass/Vol] 0.96 mg/dL Normal 0.50 - 1.30 [facility] Comment on above: Performed By: #### B MP #### [facility] [address] [place] [address] GFR- AM. >60 Normal >60 [facility] Comment on above: Result Comment: CALC ULATIONS OF ESTIMATED GFR ARE PERFORMED USING THE MDRD STUDY EQUATION FOR THE IDMS-TRACEABLE CREATININE METHODS. CLIN CHEM 2007;53:766-72 Performed By: #### B MP #### [facility] [address] [facility] [address] GFR-NON AM. >60 Normal >60 [facility] Comment on above: Performed By: #### B MP #### [facility] [address] [place] [address] Glucose [Mass/Vol] 108 mg/dL High 74 - 99 [facility] Comment on above: Performed By: #### B MP #### [facility] [address] [place] [address] HCO3 (Bld) [Moles/Vol] 28 mmol/L Normal 21 - 32 [facility] Comment on above: Performed By: #### B MP #### [facility] [address] [place] [address] Potassium [Moles/Vol] 3.6 mmol/L Normal 3.5 - 5.3 [facility] Comment on above: Performed By: #### B MP #### [facility] [address] [facility] [place] [address] Sodium [Moles/Vol] 137 mmol/L Normal 136 - 145 [facility] Comment on above: Performed By: #### B MP #### [facility] [address] [place] [address] Urea nitrogen [Mass/Vol] 12 mg/dL Normal 6 - 23 [facility] Comment on above: Performed By: #### B MP #### [facility] [address] [place] [address] CBC AND DIFFERENTIALon 03-02 % AUTOMATED IMMATURE GRAN 0.9 % Normal 0.0 - 0.9 [facility] Comment on above: Result Comment: Kath ture Granulocyte Count (IG) includes promyelocytes, myelocytes and metamyelocytes but does not include bands. Percent differential counts (%) should be interpreted in the context of the absolute cell counts (cells/L). Performed By: #### T ROP2 #### [facility] [id number] [place] [address] Basophils (Bld) [#/Vol] 0.01 10*3/uL Normal 0.00 - 0.10 [facility] Comment on above: Performed By: #### T ROP2 #### [facility] [address] [place] [address] Basophils/100 WBC (Bld) 0.3 % Normal 0.0 - 2.0 [facility] Comment on above: Performed By: #### T ROP2 #### [facility] [address] [place] [address] Eosinophils (Bld) [#/Vol] 0.02 10*3/uL Normal 0.00 - 0.70 [facility] Comment on above: Performed By: #### T ROP2 #### [facility] [address] [place] [address] Eosinophils/100 WBC (Bld) 0.6 % Normal 0.0 - 6.0 [facility] Comment on above: Performed By: #### T ROP2 #### [facility] [address] [facility] [place] [address] Erythrocyte distribution width (RBC) [Ratio] 12.8 % Normal 11.5 - 14.5 [facility] Comment on above: Performed By: #### T ROP2 #### [facility] [address] [place] [address] Hematocrit (Bld) [Volume fraction] 37.3 % Low 41.0 - 52.0 [facility] Comment on above: Performed By: #### T ROP2 #### [facility] [id number] [place] [address] [place] [address] Hemoglobin (Bld) [Mass/Vol] 12.5 g/dL Low 13.5 - 17.5 [facility] Comment on above: Performed By: #### T ROP2 #### [facility] [id number] [place] [address] [place] [address] Lymphocytes (Bld) [#/Vol] 0.71 10*3/uL Low 1.20 - 4.80 [facility] Comment on above: Performed By: #### T ROP2 #### [facility] [id number] [place] [address] [place] [address] Lymphocytes/100 WBC (Bld) 21.0 % Normal 13.0 - 44.0 [facility] Comment on above: Performed By: #### T ROP2 #### [facility] [id number] [place] [address] [place] [address] MCHC (RBC) [Mass/Vol] 33.5 g/dL Normal 32.0 - 36.0 [facility] Comment on above: Performed By: #### T ROP2 #### [facility] [id number] [place] [address] [place] [address] MCV (RBC) [Entitic vol] 85 fL Normal 80 - 100 [facility] Comment on above: Performed By: #### T ROP2 #### [facility] [id number] [place] [address] Monocytes (Bld) [#/Vol] 0.32 10*3/uL Normal 0.10 - 1.00 [facility] Comment on above: Performed By: #### T ROP2 #### [facility] [address] [place] [address] Monocytes/100 WBC (Bld) 9.5 % Normal 2.0 - 10.0 [facility] Comment on above: Performed By: #### T ROP2 #### [facility] [address] [place] [address] Neutrophils (Bld) [#/Vol] 2.29 10*3/uL Normal 1.20 - 7.70 [facility] Comment on above: Performed By: #### T ROP2 #### [facility] [id number] [place] [address] 30757 Neutrophils/100 WBC (Bld) 67.7 % Normal 40.0 - 80.0 [facility] Comment on above: Performed By: #### T ROP2 #### [facility] [id number] [place] [address] 25380 Platelets (Bld) [#/Vol] 143 10*3/uL Low 150 - 450 [facility] Comment on above: Performed By: #### T ROP2 #### [facility] [id number] [place] [address] 53145 RBC 4.39 x10E12/L Low 4.50 - 5.90 [facility] Comment on above: Performed By: #### T ROP2 #### [facility] [id number] [place] [address] 11567 WBC (Bld) [#/Vol] 3.4 10*3/uL Low 4.4 - 11.3 [facility] Comment on above: Performed By: #### T ROP2 #### [facility] [id number] [place] [address] 72922 CHEST 1 VIEWon 03-02-2021 CHEST 1 VIEW STUDY: Chest Radiograph; 03/02/2021 and 07:05 AM INDICATION: Thickness in throat feels like liquids get backed up. COMPARISON: 02/28/2021 XR Chest. ACCESSION NUMBER(S): [id number] ORDERING CLINICIAN: TERRY GARCÍA MD TECHNIQUE: Frontal chest was obtained at 08:38 hours. FINDINGS: CARDIOMEDIASTINAL SILHOUETTE: Cardiomediastinal silhouette is normal in size and configuration. LUNGS: Lungs are clear. ABDOMEN: No remarkable upper abdominal findings. BONES: No acute osseous changes. IMPRESSION: No acute cardiopulmonary abnormality. Signed by Karson White MD Electronically signed by: KARSON WHITE MD Normal [facility] Complete Blood Count + Diffe ubaldo 03-02-2021 Basophils/100 WBC (Bld) 0.3 % 0.0 - 2.0 [facility] [employer] Work Phone: Erythrocyte distribution width (RBC) [Ratio] 12.8 % See Below [facility] [employer] Phone: Comment on above: Reference Range: 11. 5 - 14.5 Hematocrit (Bld) [Volume fraction] 37.3 % below low threshold See Below [facility] [employer] Phone: Comment on above: Reference Range: 41. 0 - 52.0 Hemoglobin (Bld) [Mass/Vol] 12.5 g/dL below low threshold See Below [facility] [employer] Phone: Comment on above: Reference Range: 13. 5 - 17.5 Lymphocytes/100 WBC (Bld) 21.0 % See Below [facility] [employer] Phone: Comment on above: Reference Range: 13. 0 - 44.0 MCHC (RBC) [Mass/Vol] 33.5 g/dL See Below [facility] [employer] Work Phone: Comment on above: Reference Range: 32. 0 - 36.0 MCV (RBC) [Entitic vol] 85 fL 80 - 100 [facility] [employer] Phone: Monocytes/100 WBC (Bld) 9.5 % 2.0 - 10.0 [facility] [employer] Phone: Neutrophils/100 WBC (Bld) 67.7 % See Below [facility] [employer] Phone: Comment on above: Reference Range: 40. 0 - 80.0 Platelets (Bld) [#/Vol] 143 10*3/uL below low threshold 150 - 450 [facility] Phone: RBC (Bld) [#/Vol] 4.39 {x10E12/L} below low threshold See Below [facility] Phone: Comment on above: Reference Range: 4.5 0 - 5.90 WBC (Bld) [#/Vol] 3.4 10*3/uL below low threshold 4.4 - 11.3 [facility] Phone: [phone] Complete Blood Count + Differential 0.01 {x10E9/L} See Below [facility] Phone: Comment on above: Reference Range: 0.0 0 - 0.10 Complete Blood Count + Differential 0.02 {x10E9/L} See Below [facility] Phone: Comment on above: Reference Range: 0.0 0 - 0.70 Complete Blood Count + Differential 0.32 {x10E9/L} See Below [facility] Phone: Comment on above: Reference Range: 0.1 0 - 1.00 Complete Blood Count + Differential 0.71 {x10E9/L} below low threshold See Below [facility] Phone: Comment on above: Reference Range: 1.2 0 - 4.80 Complete Blood Count + Differential 2.29 {x10E9/L} See Below [facility] Phone: Comment on above: Reference Range: 1.2 0 - 7.70 Complete Blood Count + Differential 0.6 % 0.0 - 6.0 [facility] Phone: Complete Blood Count + Differential 0.9 % 0.0 - 0.9 [facility] Phone: Comment on above: Immature Granulocyte Count (IG) includes promyelocytes, myelocytes and metamyelocytes but does not include bands. Percent differential counts (%) should be interpreted in the context of the absolute cell counts (cells/L). Laboratory - Chemistry and C hemistry - challengeon 03-02-2021 Anion gap [Moles/Vol] 13 mmol/L 10 - 20 [facility] [employer] Work Phone: Calcium [Mass/Vol] 9.0 mg/dL 8.6 - 10.3 [facility] [employer] Work Phone: Chloride [Moles/Vol] 100 mmol/L 98 - 107 [facility] [employer] Work Phone: CO2 [Moles/Vol] 28 mmol/L 21 - 32 [facility] [employer] Work Phone: Creatinine [Mass/Vol] 0.96 mg/dL See Below [facility] [employer] Work Phone: Comment on above: Reference Range: 0.5 0 - 1.30 Glucose [Mass/Vol] 108 mg/dL above high threshold 74 - 99 [facility] [employer] Work Phone: Potassium [Moles/Vol] 3.6 mmol/L 3.5 - 5.3 [facility] [employer] Work Phone: Sodium [Moles/Vol] 137 mmol/L 136 - 145 [facility] [employer] Work Phone: Urea nitrogen [Mass/Vol] 12 mg/dL 6 - 23 [facility] [employer] Work Phone: No Panel Informationon 03-02 >60 >60 [facility] [employer] Work Phone: Comment on above: CALCULATIONS OF NIKOLE MATED GFR ARE PERFORMED USING THE MDRD STUDY EQUATION FOR THE IDMS-TRACEABLE CREATININE METHODS. CLIN CHEM 2007;53:766-72 Provider Note - ED v2on 02-21 Provider Note - ED v2 Provider Note [...] the emergency department through the , the [facility] and [facility] multiple times over the past few weeks. He has had x-rays and CT scans and blood work. He is scheduled for an endoscopy at [facility] tomorrow with Dr. Josh Werner. He has no new symptoms today necessarily. He recently resided in [place]. He states that he cannot go back to [place] due to some issues with a significant [...] No ST segment elevation concerning for acute PR. EKG appears very similar to the patient's [...] symptoms with negative work-ups. I got our protective services social worker involved who interacted with the patient on [...] was provided with multiple resources by our protective services social worker. He is connected with GI services. I [...] Other A (more content not included)... Normal [facility] Radiologyon 03-02-2021 XR Chest Single view Normal [facility] [employer] Work Phone: Risk Screen - Adult Emergenc yon 03-02-2021 Risk Screen - Adult Emergency Preferred Language: Preferred Language: Preferred Language for Discussing Health Care (patient/designee)Fran carver Advanced Directives: Advance Directive/DNRno Family Violence Adult: Abuse Screen: Are you or have you been threatened or abused physically, emotionally, or sexually by anyoneno Learning Assessment (Patient): Learning Assessment (Patient): Patient is Able to be Assessed for Learningyes Factors Influencing Readiness to Learnanxiety; pain Factors that Impact Ability to Learnnone Devices/Methods Used to Communicatenone Learning Preferencesverbal instruction; written material Cultural Considerationsnone Developmental Considerationsnone Mandaeism Considerationsnone Learning Assessment (Other Learner): Learning Assessment (Other Learner): Other learner availableno Pressure Injury/TB/Substance: Pressure Injury: Do you have a coughno Substance Use Current or Former Historynever: Cigarette/Tobacco, e-Cigarette/Vaping, Street Drugs YES: Alcohol Alcohol Usedaily Alcohol Use Additional Commentsa beer/ day Admission Risk Screen: Significant IndicatorsComplete CAGE: CAGE: Is this an injured patient at a Trauma Center ([facility] [place] no Electronic Signatures: Bal Martinez (BROOK[place]NN) (Signed 02-Mar-2021 07:36) Authored: Preferred Language, Advanced Directives, Family Violence Adult, Learning Assessment (Patient), Learning Assessment (Other Learner), Pressure Injury/TB/Substance, Pressure Injury, CAGE Last Updated: 02-Mar-2021 07:36 by Bal Martinez (RN) Normal [facility] TROPONIN Ion 03-02-2021 Troponin I.cardiac [Mass/Vol] ng/mL Normal 0.00 - 0.03 [facility] Comment on above: Result Comment: LESS [...] is performed using different testing methodology at [facility] than at other [facility]. Direct result comparisons should only be made within the same method. Performed By: #### T ROP2 #### [facility] [address] [place] [address] Troponin I.cardiac [Mass/Vol] ng/mL Normal 0.00 - 0.03 [facility] Comment on above: Result Comment: LESS [...] is performed using different testing methodology at [facility] than at other [facility]. Direct result comparisons should only be made within the same method. Performed By: #### T ROP2 #### [facility] [address] [place] [address] Triage - EDon 03-02-2021 Triage - ED [...] Accompanied By: self Language: Spoken Language Preferred: Egyptian CHIEF COMPLAINT HOSEA ALVAREZ is a Male [...] Medical History Reviewedno Electronic Signatures: Bal Martinez (RN) (Signed 02-Mar-2021 07:35) Authored: Quick Triage, Risk Screens, Pain, Arrival, ABCD, Travel History, Chart Review, Scores, Past Medical History Last Updated: 02-Mar-2021 07:35 by Bal Martinez (BROOKLYNN) Normal [facility] Troponin I, Serumon 03-02-20 21 Troponin I.cardiac [Mass/Vol] ng/mL See Below [employer] Work Phone: Comment on above: Reference Range: [...] is performed using different testing methodology at [facility] than at other [facility]. Direct result comparisons should only be made within the same method. Troponin I.cardiac [Mass/Vol] ng/mL See Below [facility] Phone: Comment on above: Reference Range: 0.0 [...] is performed using different testing methodology at [facility] than at other [facility]. Direct result comparisons should only be made within the same method. CHEST 1 VIEWon 02-28-2021 CHEST 1 VIEW STUDY: Chest Radiograph; [02/28/2021 11:25] INDICATION: Right sided chest discomfort. COMPARISON: 02/27/2021 XR Chest. ACCESSION NUMBER(S): [id number] ORDERING CLINICIAN: BAL LOMAX MD, MPH TECHNIQUE: Frontal chest was obtained at 11:14 hours. FINDINGS: CARDIOMEDIASTINAL SILHOUETTE: Cardiomediastinal silhouette is normal in size and configuration. LUNGS: Lungs are clear. ABDOMEN: No remarkable upper abdominal findings. BONES: No acute osseous changes. IMPRESSION: No acute cardiopulmonary abnormality. Signed by Karson White MD Electronically signed by: KARSON WHITE MD Normal [facility] Chart Updateon 02-28-2021 Chart Update Diagnoses/Problems Chest pain (786.50) (R07.9) Message Recorded as Task Date: 02/28/2021 09:03 AM, Created By: Antonia Cuenca Task Name: Callback Medical Advice Assigned To: Wally Lawton Regarding Patient: HOSEA ALVAREZ, Status: Active Comment: Antonia Ceunca - 28 Feb 2021 9:03 AM TASK CREATED Caller: Self; Hosea would like Dr. Lawton to call him back personally. Patient called, he went to [facility] yesterday (02/27/21) and tells me they almost admitted him to do an Echo or KENNETH but told him he had to coordinate the testing with his shoe polisher. Hosea has called several times asking for an Echo and Dr. Lawton has told him he does not need an Echo at this time. He needs the ordered testing (Stress MRI scheduled for 03/14/21 at [facility] and the Holter monitor done on 02/21/21), [...] having a G.I. scope this week. To [facility] for review. ---ssd. I called [...] Screening Asymptomtic Not detected Normal See Below -[facility] Work Phone: Comment on above: SOURCE: Nasal, [...] make patient management decisions.Fact sheet for providers: https://www.fda.gov/media/227611/downloadFact sheet for patients: https://www.fda.gov/media/649349/downloadThis test has received FDA Emergency Use Authorization (EUA) and has been verified by [facility] ([facility]). This test is only authorized for the duration of time that circumstances exist to justify the authorization of the emergency use of in vitro diagnostic tests for the detection of SARS-CoV-2 virus and/or diagnosis of COVID-19 infection under section 564(b)(1) of the Act, 21 U.S.C. 360bbb-3(b)(1), unless the authorization is terminated or revoked sooner. [facility] is certified under CLIA-88 as qualified to perform high complexity testing. Testing is performed in the [facility] laboratories located at [address] [place] [address]. No Panel Informationon 02-28 [email or web address]?RetrieveTestByDateTim e?GojchwrLI=[id number]&Da te=04-28-2021&Time=10%3a 49%3a37%3a00&TestType=EC G&Site=7&OutputType=PDF& Ext=PDF [address] [facility] Work Phone: [phone] Normal sinus rhythm [address] [facility] [address] Work Phone: [address] [facility] [address] Work Phone: [phone] [facility] [address] Work Phone: [phone] [facility] [address] Work Phone: [phone] [facility] [address] Work Phone: [phone] [facility] [address] Work Phone: [phone] [facility] [address] Work Phone: [phone] [facility] [address] Work Phone: [phone] [facility] [address] Work Phone: [phone] [facility] [address] Work Phone: [phone] [facility] [address] Work Phone: [phone] [facility] [address] Work Phone: [phone] [facility] [address] Work Phone: [phone] [facility] [address] Work Phone: [phone] [...] Within the past few days between the [facility] and [facility] [place] the patient is been seen 5 times. [...] OUTPATIENT MEDICATI (more content not included)... Normal [facility] Radiologyon 02-28-2021 XR Chest Single view Normal [facility] Work Phone: Triage - EDon 02-28-2021 Triage [...] BMI (kg/m2): 26.487 Calculated BSA (m2) 1.95 Lynda Coma Scale: Best Eye Response: (E4) [...] Past Medical History Reviewedno Electronic Signatures: Josh Morfin) (Signed 28-Feb-2021 10:57) Authored: Quick Triage, Risk Screens, Pain, Travel History, Chart Review, Scores, Past Medical History Last Updated: 28-Feb-2021 10:57 by Josh Morfin (RN) Normal [facility] BASIC METABOLIC PANELon 06-0 Anion gap [Moles/Vol] 12 mmol/L Normal 10 - 20 [facility] Comment on above: Performed By: #### B MP ####[facility] [place] [address] Calcium [Mass/Vol] 9.1 mg/dL Normal 8.6 - 10.3 [facility] Comment on above: Performed By: #### B MP ####[facility] [place] [address] Chloride [Moles/Vol] 102 mmol/L Normal 98 - 107 [facility] Comment on above: Performed By: #### B MP ####[facility] [place] [address] Creatinine [Mass/Vol] 0.87 mg/dL Normal 0.50 - 1.30 [facility] Comment on above: Performed By: #### B MP ####[facility] [place] [address] GFR- AM. >60 Normal >60 [facility] Comment on above: Result Comment: CALC ULATIONS OF ESTIMATED GFR ARE PERFORMED USING THE MDRD STUDY EQUATION FOR THE IDMS-TRACEABLE CREATININE METHODS. CLIN CHEM 2007;53:766-72 Performed By: #### B MP ####[facility] [place] [address] GFR-NON AM. >60 Normal >60 [facility] Comment on above: Performed By: #### B MP ####[facility] [place] [address] Glucose [Mass/Vol] 147 mg/dL High 74 - 99 [facility] Comment on above: Performed By: #### B MP ####[facility] [place] [address] HCO3 (Bld) [Moles/Vol] 26 mmol/L Normal 21 - 32 [facility] Comment on above: Performed By: #### B MP ####[facility] [place] [address] Potassium [Moles/Vol] 4.0 mmol/L Normal 3.5 - 5.3 [facility] Comment on above: Performed By: #### B MP ####[facility] [place] [address] Sodium [Moles/Vol] 136 mmol/L Normal 136 - 145 [facility] Comment on above: Performed By: #### B MP ####[facility] [place] [address] Urea nitrogen [Mass/Vol] 14 mg/dL Normal 6 - 23 [facility] Comment on above: Performed By: #### B MP ####[id number] [place] [address] CBC AND DIFFERENTIALon 02-27 % AUTOMATED IMMATURE GRAN 0.4 % Normal 0.0 - 0.9 [facility] Comment on above: Result Comment: Kath ture Granulocyte Count (IG) includes promyelocytes, myelocytes and metamyelocytes but does not include bands. Percent differential counts (%) should be interpreted in the context of the absolute cell counts (cells/L). Performed By: #### C BCDF ####[id number] [place] [address] Basophils (Bld) [#/Vol] 0.01 10*3/uL Normal 0.00 - 0.10 [facility] Comment on above: Performed By: #### C BCDF ####[id number] [place] [address] Basophils/100 WBC (Bld) 0.2 % Normal 0.0 - 2.0 [facility] Comment on above: Performed By: #### C BCDF ####[id number] [place] [address] Erythrocyte distribution width (RBC) [Ratio] 12.8 % Normal 11.5 - 14.5 [facility] Comment on above: Performed By: #### C BCDF ####[id number] [place] [address] Hematocrit (Bld) [Volume fraction] 38.5 % Low 41.0 - 52.0 [facility] Comment on above: Performed By: #### C BCDF ####[facility] [place] [address] Hemoglobin (Bld) [Mass/Vol] 12.9 g/dL Low 13.5 - 17.5 [facility] Comment on above: Performed By: #### C BCDF ####[facility] [place] [address] Lymphocytes (Bld) [#/Vol] 0.37 10*3/uL Low 1.20 - 4.80 [facility] Comment on above: Performed By: #### C BCDF ####[id number] [place] [address] Lymphocytes/100 WBC (Bld) 6.8 % Normal 13.0 - 44.0 [facility] Comment on above: Performed By: #### C BCDF ####[id number] [place] [address] MCHC (RBC) [Mass/Vol] 33.5 g/dL Normal 32.0 - 36.0 [facility] Comment on above: Performed By: #### C BCDF ####[facility] [place] [address] MCV (RBC) [Entitic vol] 86 fL Normal 80 - 100 [facility] Comment on above: Performed By: #### C BCDF ####[facility] [place] [address] Monocytes (Bld) [#/Vol] 0.04 10*3/uL Low 0.10 - 1.00 [facility] Comment on above: Performed By: #### C BCDF ####[facility] [facility] [place] [address] Monocytes/100 WBC (Bld) 0.7 % Normal 2.0 - 10.0 [facility] Comment on above: Performed By: #### C BCDF ####[facility] [place] [address] Neutrophils (Bld) [#/Vol] 5.00 10*3/uL Normal 1.20 - 7.70 [facility] Comment on above: Performed By: #### C BCDF ####[facility] [facility] [place] [address] Neutrophils/100 WBC (Bld) 91.9 % Normal 40.0 - 80.0 [facility] Comment on above: Performed By: #### C BCDF ####[facility] [place] [address] Platelets (Bld) [#/Vol] 174 10*3/uL Normal 150 - 450 [facility] Comment on above: Performed By: #### C BCDF ####[facility] [place] [address] RBC 4.50 x10E12/L Normal 4.50 - 5.90 [facility] Comment on above: Performed By: #### C BCDF ####[facility] [place] [address] WBC (Bld) [#/Vol] 5.4 10*3/uL Normal 4.4 - 11.3 [facility] Comment on above: Performed By: #### C BCDF ####[facility] [place] [address] CHEST 1 VIEWon 02-27-2021 CHEST 1 VIEW Patient Name: HOSEA ALVAREZ STUDY: CHEST 1 VIEW; 02/27/2021 7:46 am INDICATION: Chest Pain. COMPARISON: 02/23/2021 ACCESSION NUMBER(S): [id number] ORDERING CLINICIAN: HERMES SEXTON FINDINGS: AP portable view of the chest is obtained. Limited exam due to portable nature. Magnified cardiac silhouette. No infiltrates, effusions or pneumothorax. IMPRESSION: 1. No evidence of acute cardiopulmonary process. Electronically signed by: CLOVIS VILLANUEVA MD Normal [facility] Complete Blood Count + Diffe rentialon 02-27-2021 Basophils/100 WBC (Bld) 0.2 % 0.0 - 2.0 [facility] Work Phone: [phone] Erythrocyte distribution width (RBC) [Ratio] 12.8 % See Below [facility] Work Phone: [phone] Comment on above: Reference Range: 11. 5 - 14.5 Hematocrit (Bld) [Volume fraction] 38.5 % below low threshold See Below [facility] Work Phone: [phone] Comment on above: Reference Range: 41. 0 - 52.0 Hemoglobin (Bld) [Mass/Vol] 12.9 g/dL below low threshold See Below [facility] Work Phone: [phone] Comment on above: Reference Range: 13. 5 - 17.5 Lymphocytes/100 WBC (Bld) 6.8 % See Below [facility] Work Phone: [phone] Comment on above: Reference Range: 13. 0 - 44.0 MCHC (RBC) [Mass/Vol] 33.5 g/dL See Below [facility] Work Phone: [phone] Comment on above: Reference Range: 32. 0 - 36.0 MCV (RBC) [Entitic vol] 86 fL 80 - 100 [facility] Work Phone: [phone] Monocytes/100 WBC (Bld) 0.7 % 2.0 - 10.0 [facility] Work Phone: [phone] Neutrophils/100 WBC (Bld) 91.9 % See Below [facility] Work Phone: [phone] Comment on above: Reference Range: 40. 0 - 80.0 Platelets (Bld) [#/Vol] 174 10*3/uL 150 - 450 [facility] Work Phone: RBC (Bld) [#/Vol] 4.50 {x10E12/L} See Below [facility] Work Phone: Comment on above: Reference Range: 4.5 0 - 5.90 WBC (Bld) [#/Vol] 5.4 10*3/uL 4.4 - 11.3 [facility] Work Phone: Complete Blood Count + Differential 0.01 {x10E9/L} See Below [facility] Work Phone: Comment on above: Reference Range: 0.0 0 - 0.10 Complete Blood Count + Differential 0.04 {x10E9/L} below low threshold See Below [facility] Work Phone: Comment on above: Reference Range: 0.1 0 - 1.00 Complete Blood Count + Differential 0.37 {x10E9/L} below low threshold See Below [facility] Work Phone: Comment on above: Reference Range: 1.2 0 - 4.80 Complete Blood Count + Differential 5.00 {x10E9/L} See Below [facility] Work Phone: Comment on above: Reference Range: 1.2 0 - 7.70 Complete Blood Count + Differential 0.4 % 0.0 - 0.9 [facility] Work Phone: Comment on above: Immature Granulocyte Count (IG) includes promyelocytes, myelocytes and metamyelocytes but does not include bands. Percent differential counts (%) should be interpreted in the context of the absolute cell counts (cells/L). Laboratory - Chemistry and C hemistry - challengeon 02-27-2021 Anion gap [Moles/Vol] 12 mmol/L 10 - 20 [facility] Work Phone: Calcium [Mass/Vol] 9.1 mg/dL 8.6 - 10.3 [facility] Work Phone: Chloride [Moles/Vol] 102 mmol/L 98 - 107 [facility] Work Phone: CO2 [Moles/Vol] 26 mmol/L 21 - 32 [facility] Work Phone: Creatinine [Mass/Vol] 0.87 mg/dL See Below [facility] [facility] Work Phone: Comment on above: Reference Range: 0.5 0 - 1.30 Glucose [Mass/Vol] 147 mg/dL above high threshold 74 - 99 [facility] Work Phone: Potassium [Moles/Vol] 4.0 mmol/L 3.5 - 5.3 [facility] Work Phone: Sodium [Moles/Vol] 136 mmol/L 136 - 145 MG-Gas troente [facility] Work Phone: Urea nitrogen [Mass/Vol] 14 mg/dL 6 - 23 MG-Gastroente [facility] Work Phone: No Panel Informationon 02-27 EKG (Reference Range : not available) Ventricular Rate : 61 BPM Atrial Rate : 61 BPM P-R Interval : 182 ms QRS Duration : 114 ms Q-T Interval : 384 ms QTC Calculation(Bazett) : 386 ms Calculated P [place] : 28 degrees Calculated R [place] : -17 degrees Calculated T [place] : 0 degrees Diagnosis:Normal sinus rhythm Normal ECG When compared with ECG of 26-FEB-2021 17:56, No significant change was found Confirmed by Martin Shepard (1989) on 02/27/2021 1:54:01 PM See also the report from this date S >60 >60 [facility] Work Phone: Comment on above: CALCULATIONS OF NIKOLE MATED GFR ARE PERFORMED USING THE MDRD STUDY EQUATION FOR THE IDMS-TRACEABLE CREATININE METHODS. CLIN CHEM 2007;53:766-72 [email or web address] 1:80 80/duke/museweb.d ll?RetrieveTestByDateTim e?ByzbmukBP=[id number]&Da te=03-28-2021&Time=07%3a 19%3a24%3a00&TestType=EC G&Site=7&OutputType=PDF& Ext=PDF [facility] [employer] Work Phone: [phone] Normal sinus rhythm [facility] [employer] Work Phone: [phone] Normal [facility] [employer] Work Phone: [phone] [facility] [employer] Work Phone: [phone] [facility] [employer] Work Phone: [phone] [facility] [employer] Work Phone: [phone] [facility] [employer] Work Phone: [phone] [facility] [employer] Work Phone: [phone] [facility] [employer] Work Phone: [phone] [facility] [employer] Work Phone: [phone] [facility] [employer] Work Phone: [phone] [facility] [employer] Work Phone: [phone] [facility] [employer] Work Phone: [phone] [facility] [employer] Work Phone: [phone] [facility] [employer] Work Phone: [phone] [facility] [employer] Work Phone: [phone] [facility] [employer] Work Phone: Provider Note - ED v2on 0 Provider Note - ED v2 Provider Note - ED v2: Chart Review: ED NOTES ED NOTES: History: This is a 50-year-old male presenting from he is homeless and called 911 by [facility] for chief complaint of chest pain. This patient has had multiple visits to multiple emergency departments for the same complaint including 2 visits to [facility] in the last 24 hours. It is [...] bringing up information on his phone under [employer] about post Covid noninfective endocarditis. 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 Normal [facility] Radiologyon 02-27-2021 XR Chest Single view Normal MG-G [facility] Work Phone: TROPONIN Ion 02-27-2021 TROPONIN I Canceled Normal [facility] Comment on above: Order Comment: TEST [...] is performed using different testing methodology at [facility] than at other [facility]. Direct result comparisons should only be made within the same method. Performed By: #### T ROP2 #### [facility] [address] [place] [address] Troponin I.cardiac [Mass/Vol] ng/mL Normal 0.00 - 0.03 [facility] Comment on above: Result Comment: LESS [...] is performed using different testing methodology at [facility] than at other [facility]. Direct result comparisons should only be made within the same method. Performed By: #### T ROP2 #### [facility] [address] [place] [address] Triage - EDon 02-27-2021 Triage - ED [...] BMI (kg/m2): 30.046 Calculated BSA (m2) 1.98 [place]ron[place] Coma Scale: Best Eye Response: (E4) spontaneous Best Motor Response: (M6) obeys commands Best Verbal Response: (V5) oriented Trona Score: 15 Patient has homicidal thoughts: no [...] Medical History Reviewedno Electronic Signatures: Patrizia Vinson (RN) (Signed 27-Feb-2021 07:26) Authored: Quick Triage, Risk Screens, Pain, Arrival, Pre-arrival, Travel History, Chart Review, Scores, Past Medical History Last Updated: 27-Feb-2021 07:26 by Patrizia Vinson ([place]) Normal [facility] Troponin I, Serumon 02-28-20 21 Troponin I.cardiac [Mass/Vol] ng/mL See Below -[facility] Work Phone: Comment on above: Reference Range: [...] is performed using different testing methodology at [facility] than at other [facility]. Direct result comparisons should only be made within the same method. No Panel Informationon 02-26 XR Chest Portable (1view) (Reference Range: not available) *FINAL Date of Service: 02/26/2021 19:37 Adm #: [id number] Reading Dr:ANEUDY CRAIN Signoff Dr: ANEUDY CRAIN [...] IMPRESSION: No acute pathologic findings are identified. [id number] This report has been produced using speech recognition. Original Interpreting Physician: ANEUDY CRAIN M.D. Original Transcribed by/Date: PSCB Feb 26 2021 7:46P Original Electronically Signed by/Date: ANEUDY CRAIN M.D. Feb 26 2021 7:46P Addendum Interpreting Physician: Addendum Transcribed by/Date: NO ADDENDUM Addendum Electronically Signed by/Date: [facility] Chart Updateon 02-23-2021 Chart Update Message [...] told me we need his records from [facility] in [place], [place]. I had patient sign a Record Release form. To [facility] for review. ----- Per vo Dr. Lawton - Patient should follow up with scheduled testing (24 hour HLT 02/21/21 [facility] AND Ex Stress MRI 03/14/21 [facility]) and follow up with us as scheduled on 03/23/[address]. I [address]. Lawton's reply/orders, patient did not agree with plan but he demonstrated a good understanding. Hosea told me he walking over to [facility] ER to get evaluated. I informed Dr. Lawton. ---ssd. Signatures Electronically signed by : Antonia Cuenca L.P.N.; Feb 23 2021 11:20AM EST (Author) Electronically signed by : Wally Lawton MD; Feb 23 2021 1:08PM EST (Author) Normal [employer] Complete Blood Count + Diffe ubaldo 02-23-2021 Basophils/100 WBC (Bld) 0.3 % 0.0 - 2.0 [facility] Work Phone: Erythrocyte distribution width (RBC) [Ratio] 12.6 % See Below [facility] Work Phone: Comment on above: Reference Range: 11. 5 - 14.5 Hematocrit (Bld) [Volume fraction] 36.6 % below low threshold See Below [facility] Work Phone: Comment on above: Reference Range: 41. 0 - 52.0 Hemoglobin (Bld) [Mass/Vol] 12.1 g/dL below low threshold See Below [facility] Work Phone: Comment on above: Reference Range: 13. 5 - 17.5 Lymphocytes/100 WBC (Bld) 19.2 % See Below [facility] Work Phone: Comment on above: Reference Range: 13. 0 - 44.0 MCHC (RBC) [Mass/Vol] 33.1 g/dL See Below [facility] Work Phone: Comment on above: Reference Range: 32. 0 - 36.0 MCV (RBC) [Entitic vol] 85 fL 80 - 100 [facility] Work Phone: [phone] Monocytes/100 WBC (Bld) 7.9 % 2.0 - 10.0 [facility] Work Phone: [phone] Neutrophils/100 WBC (Bld) 71.7 % See Below [facility] Work Phone: Comment on above: Reference Range: 40. 0 - 80.0 Platelets (Bld) [#/Vol] 135 10*3/uL below low threshold 150 - 450 MG-Gastromercy healthy-[facility] Work Phone: [phone] RBC (Bld) [#/Vol] 4.31 {x10E12/L} below low threshold See Below [facility] Work Phone: Comment on above: Reference Range: 4.5 0 - 5.90 WBC (Bld) [#/Vol] 3.2 10*3/uL below low threshold 4.4 - 11.3 MG-Gastromercy healthyBridgewater State Hospitalri [facility] Work Phone: Complete Blood Count + Differential 0.01 {x10E9/L} See Below [facility] Work Phone: Comment on above: Reference Range: 0.0 0 - 0.10 Complete Blood Count + Differential 0.02 {x10E9/L} See Below [facility] Work Phone: Comment on above: Reference Range: 0.0 0 - 0.70 Complete Blood Count + Differential 0.25 {x10E9/L} See Below [facility] Work Phone: Comment on above: Reference Range: 0.1 0 - 1.00 Complete Blood Count + Differential 0.61 {x10E9/L} below low threshold See Below [facility] Work Phone: Comment on above: Reference Range: 1.2 0 - 4.80 Complete Blood Count + Differential 2.27 {x10E9/L} See Below [facility] Work Phone: Comment on above: Reference Range: 1.2 0 - 7.70 Complete Blood Count + Differential 0.6 % 0.0 - 6.0 [facility] Work Phone: Complete Blood Count + Differential 0.3 % 0.0 - 0.9 [facility] Work Phone: Comment on above: Immature Granulocyte Count (IG) includes promyelocytes, myelocytes and metamyelocytes but does not include bands. Percent differential counts (%) should be interpreted in the context of the absolute cell counts (cells/L). Complete Blood Count + Differential 0.0 {/100_WBC} 0.0 - 0.0 [facility] Work Phone: Coronavirus 2019 RNA by PCR, Symptomaticon 02-23-2021 Date and time of symptom onset [id number] 1 [facility] Work Phone: Coronavirus 2019 RNA by PCR, Symptomatic Not detected Normal See Below [facility] Work Phone: Comment on above: SOURCE: Nasal, [...] this test method. Fact sheet for providers: www.fda.gov/media/716885/downloadFact sheet for patients: www.fda.gov/media/378965/downloadThis test has received FDA Emergency Use Authorization (EUA) and has been verified by [facility]. This test is only authorized for the duration of time that circumstances exist to justify the authorization of the emergency use of in vitro diagnostic tests for the detection of SARS-CoV-2 virus and/or diagnosis of COVID-19 infection under section 564(b)(1) of the Act, 21 U.S.C. 360bbb-3(b)(1), unless the authorization is terminated or revoked sooner. [facility] is certified under CLIA-88 as qualified to perform high complexity testing. Testing is performed in the [facility] located at [address] [place] [address]. Laboratory - Chemistry and C hemistry - challengeon 02-23-2021 Albumin BCP dye [Mass/Vol] 4.1 g/dL 3.4 - 5.0 [facility] Work Phone: ALP [Catalytic activity/Vol] 48 U/L 33 - 120 [facility] Work Phone: ALT With P-5'-P [Catalytic activity/Vol] 15 U/L 10 - 52 [facility]ente [facility] Work Phone: Comment on above: Patients treated wit h Sulfasalazine may generate falsely decreased results for ALT. Anion gap [Moles/Vol] 14 mmol/L 10 - 20 MG- [facility]ente [facility] Work Phone: AST With P-5'-P [Catalytic activity/Vol] 13 U/L 9 - 39 MG-Gastroente [facility] Work Phone: [phone] Bilirubin [Mass/Vol] 0.6 mg/dL 0.0 - 1.2 MG-G astroente [facility] Work Phone: [phone] Calcium [Mass/Vol] 8.9 mg/dL 8.6 - 10.3 MG-Gas troente rology[facility] Work Phone: [phone] Chloride [Moles/Vol] 104 mmol/L 98 - 107 MG-G astroente rology-[facility] Work Phone: [phone] CO2 [Moles/Vol] 24 mmol/L 21 - 32 MG-Gastro ente [facility] Work Phone: [phone] Creatinine [Mass/Vol] 0.85 mg/dL See Below MG- Gastroente [facility] Work Phone: [phone] Comment on above: Reference Range: 0.5 0 - 1.30 Glucose [Mass/Vol] 153 mg/dL above high threshold 74 - 99 [facility] Work Phone: [phone] Potassium [Moles/Vol] 4.0 mmol/L 3.5 - 5.3 MG- [facility]astroente [facility] Work Phone: [phone] Protein [Mass/Vol] 6.5 g/dL 6.4 - 8.2 MG-Gas troente ro[facility] Work Phone: [phone] Sodium [Moles/Vol] 138 mmol/L 136 - 145 MG-Gas troente [facility] Work Phone: [phone] Urea nitrogen [Mass/Vol] 11 mg/dL 6 - 23 [facility]ente [facility] Work Phone: [phone] Laboratory - Coagulationon 0 -03-2021 INR Coag (PPP) [Relative time] 1.0 {INR} 0.9 - 1.1 MG-Gastroente [facility] center[facility] Work Phone: PT Coag (PPP) [Time] 11.6 s See Below MG-G astroente [facility] Work Phone: Comment on above: Reference Range: 10. 1 - 13.3 No Panel Informationon 02-23 295 {ng/mL_FEU} < or = 500 MG-Gastro ente [facility]ri [facility] Work Phone: Comment on above: The VTE [...] DVT or PE exclusion.) >60 >60 MG-Gastroente [facility] hospitaledBridge[facility] Hospitalri [facility] Work Phone: Comment on above: CALCULATIONS OF NIKOLE MATED GFR ARE PERFORMED USING THE MDRD STUDY EQUATION FOR THE IDMS-TRACEABLE CREATININE METHODS. CLIN CHEM 2007;53:766-72 [email or web address] 1:80 80/baljinderscripts/museweb.d ll?RetrieveTestByDateTim e?NeagkmpQG=[id number]&Da te=11-26-2020&Time=11%3a 50%3a51%3a00&TestType=EC G&Site=12&OutputType=PDF &Ext=PDF [facility] [employer] Work Phone: Normal sinus rhythm [facility] [employer] Work Phone: Normal [facility] [employer] Work Phone: [phone] [facility] [employer] Work Phone: [phone] [facility] [employer] Work Phone: [phone] [facility] [employer] Work Phone: [phone] [facility] Work Phone: [phone] [facility] [employer] Work Phone: [phone] [facility] [employer] Work Phone: [phone] [facility] [employer] Work Phone: [phone] [facility] [employer] Work Phone: [phone] [facility] [employer] Work Phone: [phone] [facility] [employer] Work Phone: [phone] [facility] [employer] Work Phone: [phone] [facility] [employer] Work Phone: [phone] [facility] [employer] Work Phone: [phone] [facility] [employer] Work Phone: Radiologyon 02-23-2021 XR Chest Single view Normal MG-G astroente [facility] Work Phone: Troponin I, Serumon 02-24-20 21 Troponin I.cardiac [Mass/Vol] ng/mL See Below MG-Gastroente [facility] Work Phone: Comment on above: [...] is performed using different testing methodology at [facility] than at other [facility]. Direct result comparisons should only be made within the same method. Complete Blood Count + Diffe rentialon 02-22-2021 Basophils/100 WBC (Bld) 0.6 % 0.0 - 2.0 [facility] Work Phone: Erythrocyte distribution width (RBC) [Ratio] 12.6 % See Below [facility] Work Phone: [phone] Comment on above: Reference Range: 11. 5 - 14.5 Hematocrit (Bld) [Volume fraction] 34.4 % below low threshold See Below [facility] Work Phone: [phone] Comment on above: Reference Range: 41. 0 - 52.0 Hemoglobin (Bld) [Mass/Vol] 11.3 g/dL below low threshold See Below [facility] Work Phone: [phone] Comment on above: Reference Range: 13. 5 - 17.5 Lymphocytes/100 WBC (Bld) 30.4 % See Below [facility] Work Phone: [phone] Comment on above: Reference Range: 13. 0 - 44.0 MCHC (RBC) [Mass/Vol] 32.8 g/dL See Below [facility] Work Phone: [phone] Comment on above: Reference Range: 32. 0 - 36.0 MCV (RBC) [Entitic vol] 88 fL 80 - 100 [facility] Work Phone: [phone] Monocytes/100 WBC (Bld) 8.8 % 2.0 - 10.0 [facility] Work Phone: [phone] Neutrophils/100 WBC (Bld) 59.0 % See Below [facility] Work Phone: Comment on above: Reference Range: 40. 0 - 80.0 Platelets (Bld) [#/Vol] 128 10*3/uL below low threshold 150 - 450 MG-Gastroente rology-[facility] Work Phone: RBC (Bld) [#/Vol] 3.90 {x10E12/L} below low threshold See Below [facility]astroente [facility] Work Phone: Comment on above: Reference Range: 4.5 0 - 5.90 WBC (Bld) [#/Vol] 3.2 10*3/uL below low threshold 4.4 - 11.3 MG-Gastroente rology-[facility] Work Phone: Complete Blood Count + Differential 0.02 {x10E9/L} See Below MG-Gastroente [facility] Work Phone: Comment on above: Reference Range: 0.0 0 - 0.10 Complete Blood Count + Differential 0.03 {x10E9/L} See Below MG-Gastroente [facility] Work Phone: Comment on above: Reference Range: 0.0 0 - 0.70 Complete Blood Count + Differential 0.28 {x10E9/L} See Below MG-Gastroente [facility] Work Phone: Comment on above: Reference Range: 0.1 0 - 1.00 Complete Blood Count + Differential 0.97 {x10E9/L} below low threshold See Below MG-Gastroente [facility] Work Phone: Comment on above: Reference Range: 1.2 0 - 4.80 Complete Blood Count + Differential 1.88 {x10E9/L} See Below MG-Gastroente rology-[facility] Work Phone: Comment on above: Reference Range: 1.2 0 - 7.70 Complete Blood Count + Differential 0.9 % 0.0 - 6.0 MG-Gastroente [facility] Work Phone: Complete Blood Count + Differential 0.3 % 0.0 - 0.9 MG-Gastroente [facility] Work Phone: Comment on above: Immature Granulocyte Count (IG) includes promyelocytes, myelocytes and metamyelocytes but does not include bands. Percent differential counts (%) should be interpreted in the context of the absolute cell counts (cells/L). Complete Blood Count + Differential 0.0 {/100_WBC} 0.0-0.0 MG-Gastroente [facility] Work Phone: Initial Visit (Gastroenterol ogy)on 02-22-2021 Initial Visit (Gastroenterology) Diagnoses/Problems Assessed GERD (gastroesophageal reflux disease) (530.81) (K21.9) Constipation (564.00) (K59.00) Orders Constipation Start: Metamucil 28.3 % Oral Powder; mix one tablespoon in 8 ounces of water daily Rx By: Meagan Baugh; Dispense: 0 Days ; #:1 X 575 GM Bottle; Refill: 2;For: Constipation; JOSE = N; Verified Transmission to [facility]ARM[facility] #[id number]; Last Updated By: Eyestorm; 02/22/2021 3:49:47 PM Esophageal spasm Start: Dicyclomine HCl - 20 MG Oral Tablet; TAKE 1 TABLET EVERY 6 HOURS NEEDED Rx By: Meagan Baugh; Dispense: 10 Days ; #:40 Tablet; Refill: 0;For: Esophageal spasm; JOSE = N; Verified Transmission to [facility]ARMACY #3338; Last Updated By: Eyestorm; 02/22/2021 3:16:56 PM GERD (gastroesophageal reflux disease) Start: Lidocaine Viscous HCl - 2 % Mouth/Throat Solution; take one teaspoon and swish and spit four times a day as needed Rx By: Meagan Baugh; Dispense: 0 Days ; #:100 Milliliter; Refill: 0;For: GERD (gastroesophageal reflux disease); JOSE = N; Verified Transmission to [facility]ARM[facility] #3338; Last Updated By: Eyestorm; 02/22/2021 3:14:30 PM Endoscopy - Upper GI; Status:Hold For - Scheduling; Requested for:22Feb2021; Perform:[facility]; Due:[id number];Ordered; For:GERD (gastroesophageal reflux disease); Ordered By:Meagan Baugh; [...] disease); JOSE = N; [id number]; Last Updated By: Eyestorm; 02/22/2021 3:18:52 PM Start: Omeprazole 40 MG Oral Capsule Delayed Release; Take one capsule once a day Rx By: Meagan Baugh; Dispense: 0 Days ; #:30 Capsule; Refill: 11;For: GERD (gastroesophageal reflux disease); JOSE = N; [facility]; Last Updated By: Eyestorm; 02/22/2021 3:49:45 PM Patient Discussion/Summary Thank you [...] we will request an Upper Endoscopy at [facility] 3).Avoid foods known to trigger your [...] water. 7) follow up with the Daniella phlebotomist medical lab assistant you are scheduled to meet with next week for some of your food insecurity 8) follow up appointment ([phone] option 1 -[facility]) to be determined by Endosocopy results 9) Please call the office at [phone] with any questions or concerns. Provider Impressions 50 y/o man w/ PMHx HTN, Ascending Aortic Aneurysm, ELIANA, Hyperlipidemia, ? Bipolar, PTSD, P.E. 07/2020, Covid -19 07/2020 for complaint of difficulty swallowing with associated chest discomfort. Of note, on review of [facility], he has had at least 30 local ED visits since January 26, 2021 with all but 5 of those being related to a chest complaint. He has been seen at [facility], [facility], and [facility]. In the [facility] system, he has been seen at their main campus, [facility], and [place]. Additionally in that timeframe he has been seen at [facility], [facility], [facility], and the [facility] administration. He has undergone at least 3 CTAs Chest, 3 CTA Abdomen/Pelvis, 3 CT chest and one CT Abdomen/Pelvis in that timeframe (27 days) with no significant finding other than an ascending (more content not included)... Normal [facility] - Chemistry and C hemistry - challengeon 02-22-2021 Albumin BCP dye [Mass/Vol] 3.8 g/dL 3.4 - 5.0 MG-Gastroente [facility] Work Phone: [phone] ALP [Catalytic activity/Vol] 51 U/L 33 - 120 MG-Gastroente [facility] Work Phone: [phone] ALT With P-5'-P [Catalytic activity/Vol] 14 U/L 10 - 52 [facility]-Gastroente [facility] Work Phone: [phone] Comment on above: Patients treated wit h Sulfasalazine may generate falsely decreased results for ALT. Anion gap [Moles/Vol] 10 mmol/L 10 - 20 MG- Gastroente [facility] Work Phone: [phone] AST With P-5'-P [Catalytic activity/Vol] 12 U/L 9 - 39 [facility]astroente [facility] Work Phone: [phone] Bilirubin [Mass/Vol] 0.3 mg/dL 0.0 - 1.2 MG-G astroentupson regional medical centerogy-[facility] Work Phone: [phone] Calcium [Mass/Vol] 8.8 mg/dL 8.6 - 10.6 MG-Gas [facility]yBridge[facility] Hospitalri [facility] Work Phone: [phone] Chloride [Moles/Vol] 103 mmol/L 98 - 107 MG-G astroente [facility] Work Phone: [phone] CO2 [Moles/Vol] 30 mmol/L 21 - 32 MG-Gastro ente [facility] Work Phone: [phone] Creatinine [Mass/Vol] 1.01 mg/dL See Below MG- Gastroente [facility] Work Phone: [phone] Comment on above: Reference Range: 0.5 0 - 1.30 Glucose [Mass/Vol] 79 mg/dL 74 - 99 MG-Gas troente [facility]ogy[facility] Work Phone: Potassium [Moles/Vol] 3.7 mmol/L 3.5 - 5.3 MG- [facility] Work Phone: Protein [Mass/Vol] 6.1 g/dL below low threshold 6.4 - 8.2 -[facility] Work Phone: Sodium [Moles/Vol] 139 mmol/L 136 - 145 MG[facility] Work Phone: Urea nitrogen [Mass/Vol] 13 mg/dL 6 - 23 MG-[facility] Work Phone: No Panel Informationon 02-22 >60 >60 [facility] Work Phone: Comment on above: CALCULATIONS OF NIKOLE MATED GFR ARE PERFORMED USING THE MDRD STUDY EQUATION FOR THE IDMS-TRACEABLE CREATININE METHODS. CLIN CHEM 2007;53:766-72 28 pg/mL 0 - 99 -[facility] Work Phone: Comment on above: . <100 pg/mL - Heart failure [id number] pg/mL - Intermediate probability of acute heart. [...] link to view the study images Normal -[facility] Work Phone: [email or web address]?RetrieveTestByDateTim e?QlnvuidMO=[id number]&Da te=10-29-2020&Time=18%3a 26%3a59%3a00&TestType=EC G&Site=1&OutputType=PDF& Ext=PDF MG-Gastroente rology-Chag[facility] Work Phone: [phone] Please see ED Provid er Note for formal interpretation MG-Gastroente rology-Ch[facility] Work Phone: [phone] Normal MG-Gastroente rology-[facility] Work Phone: [phone] MG-Gastroente rology-[facility] Work Phone: [phone] MG-Gastroente rology-[facility] Work Phone: [phone] MG-Gastroente rology-[facility] Work Phone: [phone] MG-Gastroente rology-[facility] Work Phone: [phone] MG-Gastroente rology-[facility] Work Phone: [phone] 1 MG-Gastroente rology-Ch[facility] Work Phone: [phone] 1 MG-Gastroente rology-[facility] Work Phone: [phone] MG-Gastroente rology-[facility] Work Phone: [phone] MG-Gastroente rology-[facility] Work Phone: [phone] MG-Gastroente rology-[facility] Work Phone: [phone] MG-Gastroente rology-[facility] Work Phone: [phone] 1 [facility] Work Phone: [phone] MG-Gastroente [facility] centerogyBridge[facility] Hospitalri [facility] Work Phone: [phone] MG-Gastroente [facility] hospitalyBridgewater State Hospitalri [facility] Work Phone: Radiologyon 02-22-2021 XR Chest Single view Normal MG-G astroente [facility] Work Phone: Tobacco Screening.on 021 Fall risk assessment a) No falls within the last year MG-Gastromercy [facility] Work Phone: Tobacco use status CPHS b) No MG-[facility] Work Phone: Troponin I, Serumon 02-23-20 21 Troponin I.cardiac [Mass/Vol] ng/mL See Below -[facility] Work Phone: Comment on above: Reference [...] is performed using different testing methodology at [facility] than at other [facility]. Direct result comparisons should only be made within the same method.. Biotin interference may cause falsely decreased results. Patients taking a Biotin dose of up to 5 mg/day should refrain from taking Biotin for 24 hours before sample collection. Providers may contact their laboratory for further information. Complete Blood Count + Diffe rentialon 02-20-2021 Basophils/100 WBC (Bld) 0.2 % 0.0 - 2.0 MG-Gastroente [facility] Work Phone: [phone] Erythrocyte distribution width (RBC) [Ratio] 12.2 % See Below [facility] Work Phone: [phone] Comment on above: Reference Range: 11. 5 - 14.5 Hematocrit (Bld) [Volume fraction] 41.6 % See Below [facility] Work Phone: [phone] Comment on above: Reference Range: 41. 0 - 52.0 Hemoglobin (Bld) [Mass/Vol] 13.6 g/dL See Below [facility] Work Phone: [phone] Comment on above: Reference Range: 13. 5 - 17.5 Lymphocytes/100 WBC (Bld) 15.4 % See Below [facility] Work Phone: [phone] Comment on above: Reference Range: 13. 0 - 44.0 MCHC (RBC) [Mass/Vol] 32.7 g/dL See Below [facility] Work Phone: [phone] Comment on above: Reference Range: 32. 0 - 36.0 MCV (RBC) [Entitic vol] 88 fL 80 - 100 [facility] Work Phone: [phone] Monocytes/100 WBC (Bld) 4.3 % 2.0 - 10.0 [facility] Work Phone: [phone] Neutrophils/100 WBC (Bld) 79.9 % See Below [facility] Work Phone: [phone] Comment on above: Reference Range: 40. 0 - 80.0 Platelets (Bld) [#/Vol] 150 10*3/uL 150 - 450 [facility] Work Phone: RBC (Bld) [#/Vol] 4.72 {x10E12/L} See Below MG -Gastroente rology-Chagri [facility] Work Phone: Comment on above: Reference Range: 4.5 0 - 5.90 WBC (Bld) [#/Vol] 4.5 10*3/uL 4.4 - 11.3 MG-Gas troente rology-Chagri [facility] Work Phone: [phone] Complete Blood Count + Differential 0.01 {x10E9/L} See Below MG-Gastroente rology-[facility] Work Phone: Comment on above: Reference Range: 0.0 0 - 0.10 Complete Blood Count + Differential 0.00 {x10E9/L} See Below MG-Gastroente [facility] Work Phone: Comment on above: Reference Range: 0.0 0 - 0.70 Complete Blood Count + Differential 0.19 {x10E9/L} See Below MG-Gastroente rology-Chagri [facility] Work Phone: Comment on above: Reference Range: 0.1 0 - 1.00 Complete Blood Count + Differential 0.69 {x10E9/L} below low threshold See Below MG-Gastroente rology-Ch[facility]ri [facility] Work Phone: Comment on above: Reference Range: 1.2 0 - 4.80 Complete Blood Count + Differential 3.57 {x10E9/L} See Below MG-Gastroente rology-Ch[facility]ri [facility] Work Phone: Comment on above: Reference Range: 1.2 0 - 7.70 Complete Blood Count + Differential 0.0 % 0.0 - 6.0 MG-Gastroente rology-Chagri [facility] Work Phone: Complete Blood Count + Differential 0.2 % 0.0 - 0.9 MG-Gastromercy healthy-[facility] Work Phone: Comment on above: Immature Granulocyte Count (IG) includes promyelocytes, myelocytes and metamyelocytes but does not include bands. Percent differential counts (%) should be interpreted in the context of the absolute cell counts (cells/L). Complete Blood Count + Differential 0.0 {/100_WBC} 0.0-0.0 MG-Gastroente [facility] Work Phone: Laboratory - Chemistry and C hemistry - challengeon 02-20-2021 Albumin BCP dye [Mass/Vol] 4.5 g/dL 3.4 - 5.0 MG-[facility]astromercy healthyMountrail [facility] Work Phone: ALP [Catalytic activity/Vol] 60 U/L 33 - 120 MG-[facility] Work Phone: ALT With P-5'-P [Catalytic activity/Vol] 16 U/L 10 - 52 [facility] Work Phone: Comment on above: Patients treated wit h Sulfasalazine may generate falsely decreased results for ALT. Anion gap [Moles/Vol] 12 mmol/L 10 - 20 MG- [facility] Work Phone: AST With P-5'-P [Catalytic activity/Vol] 14 U/L 9 - 39 [facility] Work Phone: Bilirubin [Mass/Vol] 0.5 mg/dL 0.0 - 1.2 MG-G astroente [facility] Work Phone: Calcium [Mass/Vol] 9.5 mg/dL 8.6 - 10.6 MG-Gas troente [facility] Work Phone: [phone] Chloride [Moles/Vol] 99 mmol/L 98 - 107 MG-G astroente [facility] Work Phone: [phone] CO2 [Moles/Vol] 28 mmol/L 21 - 32 MG-Gastro ente [facility] Work Phone: [phone] Creatinine [Mass/Vol] 0.87 mg/dL See Below MG- Gastroente rology-Chagri [facility] Work Phone: [phone] Comment on above: Reference Range: 0.5 0 - 1.30 Glucose [Mass/Vol] 111 mg/dL above high threshold 74 - 99 MG-Gastroente [facility] Work Phone: [phone] Potassium [Moles/Vol] 3.9 mmol/L 3.5 - 5.3 MG- Gastroente rology-Chagri [facility] Work Phone: [phone] Protein [Mass/Vol] 7.6 g/dL 6.4 - 8.2 MG-Gas troente [facility]ogy-[facility] Work Phone: [phone] Sodium [Moles/Vol] 135 mmol/L below low threshold 136 - 145 MG-Gastroente [facility] Work Phone: [phone] Urea nitrogen [Mass/Vol] 15 mg/dL 6 - 23 MG-Gastroente rology-[facility]ri [facility] Work Phone: [phone] Anion gap (Bld) [Moles/Vol] 12 mmol/L 10 - 25 MG-Gastroente rology-Ch[facility]ri [facility] Work Phone: [phone] Calcium.ionized (Bld) [Moles/Vol] 1.23 mmol/L See Below MG-Gastroente [facility] Work Phone: [phone] Comment on above: Reference Range: 1.1 0 - 1.33 Carboxyhemoglobin (BldV) [Mass fraction] 0.5 % MG-Gastroente [facility] Work Phone: Comment on above: REF VALUESNONSMOKERS 0.5-1.5%SMOKERS 0.5-10.0% Chloride [Moles/Vol] 101 mmol/L 98 - 107 MG-G astroente [facility] Work Phone: [phone] CO2 (BldV) [Partial pressure] 47 mm[Hg] 41 - 51 MG-Gastroente [facility] Work Phone: [phone] Glucose [Mass/Vol] 125 mg/dL above high threshold 74 - 99 MG-Gastroente [facility] Work Phone: [phone] HCO3 (Bld) [Moles/Vol] 27.8 mmol/L above high threshold See Below MG-Gastroente [facility] centerogyBridgewater State Hospitalri [facility] Work Phone: [phone] Comment on above: Reference Range: 22. 0 - 26.0 Lactate [Moles/Vol] 1.1 mmol/L 0.4 - 2.0 MG-Ga stroente [facility] hospitalyBridgewater State Hospitalri [facility] Work Phone: [phone] Methemoglobin (BldV) [Mass fraction] 0.8 % 0.0 - 1.5 MG-Gastroente rology-Chagri [facility] Work Phone: [phone] Oxygen (BldV) [Partial pressure] 15 mm[Hg] below low threshold 35 - 45 MG-Gastroente [facility] Work Phone: [phone] pH (BldV) 7.38 [pH] See Below MG-Gastroente [facility] Work Phone: Comment on above: Reference Range: 7.3 3 - 7.43 Potassium [Moles/Vol] 4.3 mmol/L 3.5 - 5.3 MG- Gastroente rolenmanuel-Khoari [facility] Work Phone: Sodium [Moles/Vol] 136 mmol/L 136 - 145 MG-Gas troarley [facility] Work Phone: Laboratory - Hematology and Cell countson 02-20-2021 Hematocrit (Bld) [Volume fraction] 42.0 % See Below MG-Gastroente [facility] Work Phone: Comment on above: Reference Range: 41. 0 - 52.0 Hemoglobin (Bld) [Mass/Vol] 14.3 g/dL See Below MG-Gastroarley [facility] hospitaly[facility] Work Phone: Comment on above: Reference Range: 13. 5 - 17.5 Lipase, Serumon 02-20-2021 Lipase [Catalytic activity/Vol] 11 U/L 9 - 82 MG-Gastromercy healthedMountrail County Health Center Work Phone: Comment on above: Venipuncture immedia tely after or during the administration of Metamizole may lead to falsely low results. Testing should be performed immediately prior to Metamizole dosing. T-opnmkg-u-benzoquinone imine (metabolite of Acetaminophen) will generate erroneously low results in samples for patients that have taken toxic doses of acetaminophen. Magnesium, Serumon Magnesium [Mass/Vol] 2.21 mg/dL See Below MG-G astroente [facility] hospitaled[facility] Work Phone: Comment on above: Reference Range: 1.6 0 - 2.40 No Panel Informationon 02-20 [email or web address]?RetrieveTestByDateTim e?WcufkrpJM=[id number]&Da te=20-02-2021&Time=11%3a 22%3a20%3a00&TestType=EC G&Site=1&OutputType=PDF& Ext=PDF MG-Gastroarley [facility] hospitaledChagri [facility] Work Phone: [phone] Please see ED Provid er Note for formal interpretation MG-Gastroente rology-Chagri [facility] Work Phone: [phone] Normal MG-Gastroente rology-[facility] Work Phone: [phone] MG-Gastroente rology-[facility] Work Phone: [phone] MG-Gastroente rology-Chagri [facility] Work Phone: [phone] 1 MG-Gastroente rology-[facility] Work Phone: [phone] 1 MG-Gastroente rology-[facility] Work Phone: [phone] 1 MG-Gastroente rology-[facility] Work Phone: [phone] 1 MG-Gastroente rology-[facility] Work Phone: [phone] 1 MG-Gastroente rology-[facility] Work Phone: [phone] 1 MG-Gastroente rology-[facility] Work Phone: [phone] 40 1 MG-Gastroente rology-[facility] Work Phone: [phone] MG-Gastroente rology-[facility] Work Phone: [phone] 1 MG-Gastroente rology-[facility] Work Phone: [phone] 1 MG-Gastroente rology-[facility] Work Phone: [phone] 1 MG-Gastroente rology-[facility] Work Phone: [phone] 1 MG-Gastroente rology-[facility]ri [facility] Work Phone: [phone] [email or web address]?RetrieveTestByDateTim e?UusbukmRR=[id number]&Da te=20-02-2021&Time=10%3a 01%3a05%3a00&TestType=EC G&Site=1&OutputType=PDF& Ext=PDF MG-Gastroente rology-Ch[facility]ri [facility] Work Phone: [phone] Please see ED Provid er Note for formal interpretation MG-Gastroente rology-[facility] Work Phone: [phone] Normal MG-Gastroente rology-[facility] Work Phone: [phone] MG-Gastroente rology-[facility] Work Phone: [phone] 1 MG-Gastroente rology-[facility] Work Phone: [phone] 1 MG-Gastroente rology-[facility] Work Phone: [phone] 1 MG-Gastroente rology-[facility] Work Phone: [phone] 1 MG-Gastroente rology-[facility] Work Phone: [phone] 1 MG-Gastroente rology-[facility] Work Phone: [phone] 1 MG-Gastroente rology-[facility] Work Phone: [phone] -1 1 MG-Gastroente rology-[facility] Work Phone: [phone] 41 1 MG-Gastroente rology-[facility] Work Phone: [phone] 1 MG-Gastroente rology-[facility] Work Phone: [phone] MG-Gastroente rology-[facility] Work Phone: 100 1 MG-Gastroente [facility] Work Phone: [phone] MG-Gastroente rology-[facility] Work Phone: 61 1 MG-Gastroente rology-[facility] Work Phone: Normal MG-Gastroente [facility] Work Phone: >60 >60 MG-Gastroente [facility] Work Phone: Comment on above: CALCULATIONS OF NIKOLE MATED GFR ARE PERFORMED USING THE MDRD STUDY EQUATION FOR THE IDMS-TRACEABLE CREATININE METHODS. CLIN CHEM 2007;53:766-72 14 pg/mL 0 - 99 MG-Gastroente [facility] Work Phone: Comment on above: . <100 pg/mL - Heart failure [id number] pg/mL - Intermediate probability of acute heart. [...] local laboratory for further information. [email or web address] ll?RetrieveTestByDateTim e?MhrdzerAK=[id number]&Da te=20-02-2021&Time=07%3a 00%3a10%3a00&TestType=EC G&Site=1&OutputType=PDF& Ext=PDF MG-Gastroente [facility] Work Phone: [phone] MG-Gastroente rology-Chagri n [facility] Work Phone: [phone] MG-Gastroente rology-Chagri n [facility] Work Phone: [phone] MG-Gastroente rology-[facility] Work Phone: [phone] 1 MG-Gastroente rology-[facility] Work Phone: [phone] 1 MG-Gastroente rology-[facility] Work Phone: [phone] 1 MG-Gastroente rology-[facility] Work Phone: [phone] 1 MG-Gastroente rology-[facility] Work Phone: [phone] 1 MG-Gastroente rology-[facility] Work Phone: [phone] 1 MG-Gastroente rology-[facility] Work Phone: [phone] 1 MG-Gastroente rology-[facility] Work Phone: [phone] 1 MG-Gastroente rology-[facility] Work Phone: [phone] MG-Gastroente rology-[facility] Work Phone: [phone] 2.0 mmol/L -2.0 - 3.0 MG-Gastroente rology-[facility] Work Phone: [phone] 26 % below low threshold 45 - 75 MG-Gastroente rology-[facility] Work Phone: [phone] 37.0 {degrees_C} MG-Gastr oente rology-Ch[facility]ri [facility] Work Phone: [phone] Comment on above: NOTE: PATIENT RESULT S ARE NOT CORRECTED FOR TEMPERATURE. Radiologyon 02-20-2021 XR Chest Single view Normal MG-G rebeccantkatelynn [facility] Work Phone: Troponin I, Serumon 02-21-20 Troponin I.cardiac [Mass/Vol] ng/mL See Below [facility] Work Phone: Comment on above: Reference [...] is performed using different testing methodology at [facility] than at other [facility]. Direct result comparisons should only be made within the same method.. Biotin interference may cause falsely decreased results. Patients taking a Biotin dose of up to 5 mg/day should refrain from taking Biotin for 24 hours before sample collection. Providers may contact their laboratory for further information. Troponin I.cardiac [Mass/Vol] ng/mL See Below [facility] Work Phone: Comment on above: Reference [...] is performed using different testing methodology at [facility] than at other [facility]. Direct result comparisons should only be [...] until 8 hours following last biotin administration. [facility] No Panel Informationon 02-19 HS Troponin T Delta 1 (0-4 ) Performed at [address] [address] 0 - 4 [facility] XR Chest 2 Views (PA and lat) (Reference Range: not available) *FINAL Date of Service: 02/19/2021 01:18 Adm #: [id number] Reading Dr:SOHAIL MARINA Signoff Dr: SOHAIL MARINA [...] the spine. Impression: No acute cardiopulmonary disease. [id number] This report has been produced using speech recognition. Original Interpreting Physician: SOHAIL MARINA M.D. Original Transcribed by/Date: PSCB Feb 19 2021 8:58A Original Electronically Signed by/Date: SOHAIL MARINA M.D. Feb 19 2021 8:58A Addendum Interpreting Physician: Addendum Transcribed by/Date: NO ADDENDUM Addendum Electronically Signed by/Date: S CBC AND DIFFERENTIALon 02-18 % AUTOMATED IMMATURE GRAN 0.5 % Normal 0.0 - 0.9 [facility] Comment on above: Result Comment: Kath ture Granulocyte Count (IG) includes promyelocytes, myelocytes and metamyelocytes but does not include bands. Percent differential counts (%) should be interpreted in the context of the absolute cell counts (cells/L). Performed By: #### C BCDF ####[address], [place] [id number] Basophils (Bld) [#/Vol] 0.01 10*3/uL Normal 0.00 - 0.10 [facility] Comment on above: Performed By: #### C BCDF ####[address], [place] [id number] Basophils/100 WBC (Bld) 0.2 % Normal 0.0 - 2.0 [facility] Comment on above: Performed By: #### C BCDF ####[address], [place] [id number] Eosinophils (Bld) [#/Vol] 0.01 10*3/uL Normal 0.00 - 0.70 [facility] Comment on above: Performed By: #### C BCDF ####[address], [place] [id number] Eosinophils/100 WBC (Bld) 0.2 % Normal 0.0 - 6.0 [facility] Comment on above: Performed By: #### C BCDF ####[address], [place] [id number] Erythrocyte distribution width (RBC) [Ratio] 12.2 % Normal 11.5 - 14.5 [facility] Comment on above: Performed By: #### C BCDF ####[address], [place] [id number] Hematocrit (Bld) [Volume fraction] 37.1 % Low 41.0 - 52.0 [facility] Comment on above: Performed By: #### C BCDF ####[place] [id number] [facility], [place] [id number] Hemoglobin (Bld) [Mass/Vol] 12.5 g/dL Low 13.5 - 17.5 [facility] Comment on above: Performed By: #### C BCDF ####[address], [place] [id number] Lymphocytes (Bld) [#/Vol] 1.21 10*3/uL Normal 1.20 - 4.80 [facility] Comment on above: Performed By: #### C BCDF ####[address], [place] [id number] Lymphocytes/100 WBC (Bld) 20.2 % Normal 13.0 - 44.0 [facility] Comment on above: Performed By: #### C BCDF ####[address], [place] [id number] MCHC (RBC) [Mass/Vol] 33.7 g/dL Normal 32.0 - 36.0 [facility] Comment on above: Performed By: #### C BCDF ####[address], [place] [id number] MCV (RBC) [Entitic vol] 83 fL Normal 80 - 100 [facility] Comment on above: Performed By: #### C BCDF ####[facility] [place] [address], [place] [id number] Monocytes (Bld) [#/Vol] 0.39 10*3/uL Normal 0.10 - 1.00 [facility] Comment on above: Performed By: #### C BCDF ####[address], [place] [id number] Monocytes/100 WBC (Bld) 6.5 % Normal 2.0 - 10.0 [facility] Comment on above: Performed By: #### C BCDF ####[id number] [facility] [id number] Neutrophils (Bld) [#/Vol] 4.35 10*3/uL Normal 1.20 - 7.70 [facility] Comment on above: Performed By: #### C BCDF ####[id number] [facility] [id number] Neutrophils/100 WBC (Bld) 72.4 % Normal 40.0 - 80.0 [facility] Comment on above: Performed By: #### C BCDF ####[id number] [facility] [place] [id number] Platelets (Bld) [#/Vol] 153 10*3/uL Normal 150 - 450 [facility] Comment on above: Performed By: #### C BCDF ####[facility] [facility] [place] [id number] RBC 4.47 x10E12/L Low 4.50 - 5.90 [facility] Comment on above: Performed By: #### C BCDF ####[facility] [facility] [place] [id number] WBC (Bld) [#/Vol] 6.0 10*3/uL Normal 4.4 - 11.3 [facility] Comment on above: Performed By: #### C BCDF ####[facility] [facility] [place] [id number] CHEST 1 VIEWon 02-18-2021 CHEST 1 VIEW Patient Name: HOSEA ALVAREZ STUDY: CHEST 1 VIEW; ; 02/18/2021 4:48 pm INDICATION: trouble swallowing. COMPARISON: 02/09/2021 ACCESSION NUMBER(S): [id number] ORDERING CLINICIAN: KEITH ARECHIGA FINDINGS: Portable AP view of the chest obtained in the upright position at 1640 hours. The cardiomediastinal silhouette is normal size. There is no pulmonary consolidation or pneumothorax. No acute bony abnormality. IMPRESSION: Nothing suspicious for acute cardiopulmonary disease. Electronically signed by: MARIO ALBERTO FONSECA MD [facility] COMPREHENSIVE PANELon 2020 Albumin [Mass/Vol] 4.2 g/dL Normal 3.4 - 5.0 [facility] Comment on above: Performed By: #### C BCDF #### [facility] [address] [facility] [place], [place] [phone] ALP [Catalytic activity/Vol] 44 U/L Normal 33 - 120 [facility] Comment on above: Performed By: #### C BCDF #### [facility] [address] [facility] [place], [place] [id number] ALT [Catalytic activity/Vol] 15 U/L Normal 10 - 52 [facility] Comment on above: Result Comment: Yanni ents treated with Sulfasalazine may generate falsely decreased results for ALT. Performed By: #### C BCDF #### [facility] [id number] [place] [address] [place] [id number] Anion gap [Moles/Vol] 10 mmol/L Normal 10 - 20 [facility] Comment on above: Performed By: #### C BCDF #### [facility] [address] [facility] [place], [place] [phone] AST [Catalytic activity/Vol] 16 U/L Normal 9 - 39 [facility] Comment on above: Result Comment: MILD HEMOLYSIS DETECTED. The result may be falsely elevated due to hemolysis or other interferents. Clinical correlation is recommended. Repeat testing may be considered. Performed By: #### C BCDF #### [facility] [address] [facility] [place], [place] [id number] Bilirubin [Mass/Vol] 0.4 mg/dL Normal 0.0 - 1.2 [facility] Comment on above: Performed By: #### C BCDF #### [facility] [address] [facility] [place], [place] [id number] Calcium [Mass/Vol] 9.1 mg/dL Normal 8.6 - 10.3 [facility] Comment on above: Performed By: #### C BCDF #### [facility] [address] [facility] [place], [place] [id number] Chloride [Moles/Vol] 103 mmol/L Normal 98 - 107 [facility] Comment on above: Performed By: #### C BCDF #### [place] [id number] [facility] [place], [place] [id number] Creatinine [Mass/Vol] 0.93 mg/dL Normal 0.50 - 1.30 [facility] Comment on above: Performed By: #### C BCDF #### [address] [place], [place] [id number] GFR- AM. >60 Normal >60 [facility] Comment on above: Result Comment: CALC ULATIONS OF ESTIMATED GFR ARE PERFORMED USING THE MDRD STUDY EQUATION FOR THE IDMS-TRACEABLE CREATININE METHODS. CLIN CHEM 2007;53:766-72 Performed By: #### C BCDF #### [address] [place], [place] [id number] GFR-NON AM. >60 Normal >60 [facility] Comment on above: Performed By: #### C BCDF #### [address] [place], [place] [id number] Glucose [Mass/Vol] 100 mg/dL High 74 - 99 [facility] Comment on above: Performed By: #### C BCDF #### [address] [place], [place] [id number] HCO3 (Bld) [Moles/Vol] 25 mmol/L Normal 21 - 32 [facility] Comment on above: Performed By: #### C BCDF #### [address] [place], [place] [id number] Potassium [Moles/Vol] 4.2 mmol/L Normal 3.5 - 5.3 [facility] Comment on above: Result Comment: MILD HEMOLYSIS DETECTED. The result may be falsely elevated due to hemolysis or other interferents. Clinical correlation is recommended. Repeat testing may be considered. Performed By: #### C BCDF #### [address] [place], [place] [id number] Protein [Mass/Vol] 6.9 g/dL Normal 6.4 - 8.2 [facility] Comment on above: Performed By: #### C BCDF #### [facility] [address] [facility], [place] [id number] Sodium [Moles/Vol] 134 mmol/L Low 136 - 145 [facility] Comment on above: Performed By: #### C BCDF #### [facility] [address] [facility], [place] [id number] Urea nitrogen [Mass/Vol] 15 mg/dL Normal 6 - 23 [facility] Comment on above: Performed By: #### C BCDF #### [facility] [address] [facility], [place] [id number] Chart Updateon 02-18-2021 Chart Update Diagnoses/Problems Ascending aortic aneurysm (441.2) (I71.2) Chest pain (786.50) (R07.9) Message Recorded as Task Date: 02/17/2021 10:20 AM, Created By: Antonia Cuenca Task Name: Callback Medical Advice Assigned To: Wally Lawton Regarding Patient: HOSEA ALVAREZ, Status: Active Comment: Antonia Cuenca - 17 Feb 2021 10:20 AM TASK CREATED Caller: Self; Patient saw Dr. Lawton at [facility] on 02/13/21. Since then he has gone to the ER at [facility] and the ER at [facility]. Hosea thinks he needs an Echocardiogram and would like Dr. Lawton to consider ordering this for him. Patient states he doesn't think he's going to survive waiting for the ordered testing (24 hour Holter on 02/21/21 at [facility] and the Stress MRI on 03/14/21 at [facility]). I tried reassuring the patient. To [facility] for review. ---ssd. I called and left a voice mail for the patient. Signatures Electronically signed by : Wally Lawton MD; Feb 18 2021 9:47AM EST (Author) Normal Touchworks Complete Blood Count + Diffe rentialon 02-18-2021 Basophils/100 WBC (Bld) 0.2 % 0.0 - 2.0 [facility]romercy [facility] Work Phone: Erythrocyte distribution width (RBC) [Ratio] 12.2 % See Below [facility] Work Phone: Comment on above: Reference Range: 11. 5 - 14.5 Hematocrit (Bld) [Volume fraction] 37.1 % below low threshold See Below [facility] Work Phone: Comment on above: Reference Range: 41. 0 - 52.0 Hemoglobin (Bld) [Mass/Vol] 12.5 g/dL below low threshold See Below [facility] Work Phone: Comment on above: Reference Range: 13. 5 - 17.5 Lymphocytes/100 WBC (Bld) 20.2 % See Below [facility] Work Phone: Comment on above: Reference Range: 13. 0 - 44.0 MCHC (RBC) [Mass/Vol] 33.7 g/dL See Below [facility] Work Phone: Comment on above: Reference Range: 32. 0 - 36.0 MCV (RBC) [Entitic vol] 83 fL 80 - 100 [facility] Work Phone: Monocytes/100 WBC (Bld) 6.5 % 2.0 - 10.0 [facility] Work Phone: Neutrophils/100 WBC (Bld) 72.4 % See Below [facility] Work Phone: Comment on above: Reference Range: 40. 0 - 80.0 Platelets (Bld) [#/Vol] 153 10*3/uL 150 - 450 MG-Gastroente rology-[facility] Work Phone: RBC (Bld) [#/Vol] 4.47 {x10E12/L} below low threshold See Below MG-Gastroente rology-[facility] Work Phone: Comment on above: Reference Range: 4.5 0 - 5.90 WBC (Bld) [#/Vol] 6.0 10*3/uL 4.4 - 11.3 MG-Gas troente rology-[facility] Work Phone: [phone] Complete Blood Count + Differential 0.01 {x10E9/L} See Below MG-Gastroente ro[facility]y-[facility] Work Phone: [phone] Comment on above: Reference Range: 0.0 0 - 0.10 Reference Range: 0.0 0 - 0.70 Complete Blood Count + Differential 0.39 {x10E9/L} See Below MG-Gastroente rology-[facility] Work Phone: Comment on above: Reference Range: 0.1 0 - 1.00 Complete Blood Count + Differential 1.21 {x10E9/L} See Below MG-Gastroente ro[facility]y-[facility] Work Phone: Comment on above: Reference Range: 1.2 0 - 4.80 Complete Blood Count + Differential 4.35 {x10E9/L} See Below MG-Gastroente ro[facility]y-[facility] Work Phone: Comment on above: Reference Range: 1.2 0 - 7.70 Complete Blood Count + Differential 0.2 % 0.0 - 6.0 [facility]Gastroente [facility] Work Phone: Complete Blood Count + Differential 0.5 % 0.0 - 0.9 [facility]Gastroente [facility] Work Phone: Comment on above: Immature Granulocyte Count (IG) includes promyelocytes, myelocytes and metamyelocytes but does not include bands. Percent differential counts (%) should be interpreted in the context of the absolute cell counts (cells/L). Laboratory - Chemistry and C hemistry - challengeon 02-18-2021 Anion gap [Moles/Vol] Anion Gap 17 MMOL/ L (0-19 MMOL/L) 0 - 19 MMOL/L [facility] Calcium [Mass/Vol] Calcium 8.3 MG/DL L (8.5-10.4 MG/DL) Low 8.5 - 10.4 MG/DL S Chloride [Moles/Vol] Chloride 102 MMOL/L (97-107 MMOL/L) 97 - 107 MMOL/L S CO2 [Moles/Vol] Carbon Dioxide 20 MM OL/L L (24-31 MMOL/L) Low 24 - 31 MMOL/L S Creatinine [Mass/Vol] Creatinine R 0.9 M G/DL (0.4-1.6 MG/DL) 0.4 - 1.6 MG/DL [facility] GFR/1.73 sq M.predicted MDRD (S/P/Bld) [Vol rate/Area] EGFR 95 mL/min/1.73 m2 (Reference Range: not available) GFR ml/min/1.73m2 Stage ----- 90 1 60-89 2 30-59 3 15-29 4 <15 5 For -Americans, multiply EGFR result by 1.210 Calculation not validated for patients under 18 years of age. Performed at [address] [address] [facility] Glucose [Mass/Vol] Glucose 102 MG/DL H (65-99 MG/DL) High 65 - 99 MG/DL [facility] Potassium [Moles/Vol] Potassium R 3.8 MM OL/L (3.4-5.1 MMOL/L) 3.4 - 5.1 MMOL/L [facility] Sodium [Moles/Vol] Sodium 138 MMOL/L (133-145 MMOL/L) 133 - 145 MMOL/L [facility] Troponin T.cardiac [Mass/Vol] HS Troponin T,Gen [...] until 8 hours following last biotin administration. [facility] Urea nitrogen [Mass/Vol] BUN 13 MG/DL (8-25 MG/DL) 8 - 25 MG/DL [facility] Urea nitrogen/Creatinine [Mass ratio] BUN Creatinine Ratio 14.4 RATIO (8-21 RATIO) 8 - 21 RATIO [facility] Albumin BCP dye [Mass/Vol] 4.2 g/dL 3.4 - 5.0 [facility] Work Phone: ALP [Catalytic activity/Vol] 44 U/L 33 - 120 [facility]ente [facility] Work Phone: ALT With P-5'-P [Catalytic activity/Vol] 15 U/L 10 - 52 [facility] Work Phone: Comment on above: Patients treated wit h Sulfasalazine may generate falsely decreased results for ALT. Anion gap [Moles/Vol] 10 mmol/L 10 - 20 MG- Gastroente rology-[facility] Work Phone: AST With P-5'-P [Catalytic activity/Vol] 16 U/L 9 - 39 [facility]astro[facility] Work Phone: Comment on above: MILD HEMOLYSIS DETEC SEBASTIÁN. The result may be falsely elevated due tohemolysis or other interferents. Clinical correlation is recommended.Repeat testing may be considered. Bilirubin [Mass/Vol] 0.4 mg/dL 0.0 - 1.2 MG-G astroente rology-[facility] Work Phone: Calcium [Mass/Vol] 9.1 mg/dL 8.6 - 10.3 [facility]Gas troente [facility] Work Phone: [phone] Chloride [Moles/Vol] 103 mmol/L 98 - 107 MG-G astroente rology-[facility] Work Phone: CO2 [Moles/Vol] 25 mmol/L 21 - 32 MG-Gastro ente rology-[facility] Work Phone: Creatinine [Mass/Vol] 0.93 mg/dL See Below MG- Gastroente rology-[facility] Work Phone: Comment on above: Reference Range: 0.5 0 - 1.30 Glucose [Mass/Vol] 100 mg/dL above high threshold 74 - 99 [facility]Gastroente [facility] Work Phone: Potassium [Moles/Vol] 4.2 mmol/L 3.5 - 5.3 MG- Gastroente [facility] Work Phone: Comment on above: MILD HEMOLYSIS DETEC SEBASTIÁN. The result may be falsely elevated due tohemolysis or other interferents. Clinical correlation is recommended.Repeat testing may be considered. Protein [Mass/Vol] 6.9 g/dL 6.4 - 8.2 [facility] Work Phone: Sodium [Moles/Vol] 134 mmol/L below low threshold 136 - 145 [facility] Work Phone: Urea nitrogen [Mass/Vol] 15 mg/dL 6 - 23 [facility] Work Phone: Laboratory - Hematology and Cell countson 02-18-2021 Basophils (Bld) [#/Vol] Abs Baso 0.01 K/UL (0.00-0.22 K/UL) 0.00 - 0.22 K/UL [facility] Basophils/100 WBC (Bld) Basophil 0.20 % (0-1 %) 0 - 1 % [facility] Differential cell count method Nom (Bld) Diff Type AUTO DIFF (Reference Range: not available) [facility] Eosinophils (Bld) [#/Vol] Abs Eos 0.02 K/UL (0-0.45 K/UL) 0 - 0.45 K/UL [facility] Eosinophils/100 WBC (Bld) Eosinophil 0.40 % (0-3 %) 0 - 3 % [facility] Erythrocyte distribution width (RBC) [Entitic vol] RDW SD 39.1 FL (37.0-54.0 FL) 37.0 - 54.0 FL [facility] Erythrocyte distribution width (RBC) [Ratio] RDW CV 12.6 % (11.7-15.0 %) 11.7 - 15.0 % [facility] Hematocrit (Bld) [Volume fraction] HCT 36.8 % L (41-50 %) Low 41 - 50 % [facility] Hemoglobin (Bld) [Mass/Vol] HGB 12.1 GM/DL [...] 100 FL S Monocytes (Bld) [#/Vol] Abs Wilbarger 0.36 K/UL (0-0.8 K/UL) 0 - 0.8 K/UL [facility] Monocytes/100 WBC (Bld) Monocyte 7.50 % (0-8 %) 0 - 8 % S Neutrophils (Bld) [#/Vol] Abs.Neut.Calculated 3.04 K/UL (Reference Range: not available) Performed at [address] [address] [facility] Neutrophils (Bld) [#/Vol] Abs Neut 3.04 K/UL (1.8-7.7 K/UL) 1.8 - 7.7 K/UL [facility] Neutrophils.immature/ 100 WBC (Bld) Immature Neut % 0.20 % (0.0-1.0 %) 0.0 - 1.0 % [facility] Nucleated RBC/100 WBC (Bld) [Ratio] NRBCs 0 /100 WBC (0 /100 WBC) [facility] Platelet mean volume (Bld) [Entitic vol] MPV 12.1 CU (7.0-12.6 CU) 7.0 - 12.6 CU [facility] Platelets (Bld) [#/Vol] PLT 156 K/UL (150-450 K/UL) 150 - 450 K/UL [facility] RBC (Bld) [#/Vol] RBC 4.27 M/UL L (4.5 -5.5 M/UL) Low 4.5 - 5.5 M/UL [facility] Segmented neutrophils/100 WBC (Bld) Granulocyte 63.50 % (50-70 %) 50 - 70 % [facility] WBC (Bld) [#/Vol] WBC 4.8 K/UL (4.5-11 .0 K/UL) 4.5 - 11.0 K/UL [facility] No Panel Informationon 02-18 HS Troponin T Delta 1 (0-4 ) Performed at [address] [address] 0 - 4 [facility] >60 >60 MG-Gastroente [facility] Work Phone: Comment on above: CALCULATIONS OF NIKOLE MATED GFR ARE PERFORMED USING THE MDRD STUDY EQUATION FOR THE IDMS-TRACEABLE CREATININE METHODS. CLIN CHEM 2007;53:766-72 Provider Note - ED v2on 05-2 Provider Note - ED v2 Provider Note [...] ED precautions with the patient. Did require security compliance engineer out of the ED as he became [...] a while (more content not included)... Normal [facility] Radiologyon 02-18-2021 XR Chest Single view Normal MG-G astroente [facility] Work Phone: Risk Screen - Adult Emergenc yon 02-18-2021 Risk Screen - Adult Emergency Preferred Language: Preferred Language: Preferred Language for Discussing Health Care (patient/designee)Fran carver Advanced Directives: Advance Directive/DNRno Family Violence Adult: Abuse Screen: Are you or have you been threatened or abused physically, emotionally, or sexually by anyoneno Learning Assessment (Patient): Learning Assessment (Patient): Patient is Able to be Assessed for Learningyes Factors Influencing Readiness to Learnacuteness of illness Factors that Impact Ability to Learnnone Devices/Methods Used to Communicatenone Learning Preferencesverbal instruction Cultural Considerationsnone Developmental Considerationsnone Mandaeism Considerationsnone Learning Assessment (Other Learner): Learning Assessment (Other Learner): Other learner availableno Pressure Injury/TB/Substance: Pressure Injury: Do you have a coughno Substance Use Current or Former Historynever: Cigarette/Tobacco, e-Cigarette/Vaping, Street Drugs YES: Alcohol Alcohol Usedaily Admission Risk Screen: Significant IndicatorsComplete CAGE: CAGE: Is this an injured patient at a Trauma Center ([facility]/[place]): no Electronic Signatures: Ashkan Ott (BROOLKYNN) (Signed 18-Feb-2021 15:53) Authored: Preferred Language, Advanced Directives, Family Violence Adult, Learning Assessment (Patient), Learning Assessment (Other Learner), Pressure Injury/TB/Substance, Pressure Injury, CAGE Last Updated: 18-Feb-2021 15:53 by Ashkan Ott (BROOKLYNN) Normal [facility] TROPONIN Ion 02-18-2021 Troponin I.cardiac [Mass/Vol] ng/mL Normal 0.00 - 0.03 [facility] Comment on above: Result Comment: LESS [...] is performed using different testing methodology at [facility] than at other [facility]. Direct result comparisons should only be made within the same method. Performed By: #### T ROP2 ####[facility] [place], [place] [id number] Triage - EDon 02-18-2021 Triage - ED [...] Arrival: stretcher Mode of Arrival: ambulance Agency: [facility] Agency Name: [facility] Arrival From: home Accompanied By: self Language: Spoken Language Preferred: Egyptian Reading Language Preferred: Egyptian Instrument Technologist Requested: no translator interpreter was requested CHIEF COMPLAINT HOSEA ALVAREZ is a Male patient with a chief complaint of other. Other Complaints: c/o pain when swallowing which started a while ago after eating [facility] Triage Date/Time: 18-Feb-2021 15:48 WILMAN: 4 Pain [...] BMI (kg/m2): 29.904 Calculated BSA (m2) 1.98 Trona Coma Scale: Best Eye Response: (E4) spontaneous Best Motor Response: (M6) obeys commands Best Verbal Response: (V5) oriented Trona Score: 15 Allergies: yes Patient has homicidal [...] Last Updated: 18-Feb-2021 15:52 by Ashkan Ott) [facility] Troponin I, Serumon 02-19-20 21 Troponin I.cardiac [Mass/Vol] ng/mL See Below [facility] Work Phone: Comment on above: Reference [...] is performed using different testing methodology at [facility] than at other [facility]. Direct result comparisons should only be made within the same method. Chart Updateon 02-17-2021 Chart Update Message Recorded as Task Date: 02/16/2021 10:19 AM, Created By: Antonia Cuenca Task Name: Callback Medical Advice Assigned To: Antonia Cuenca Regarding Patient: HOSEA ALVAREZ, Status: Active Comment: Antonia Cuenca - 16 Feb 2021 10:19 AM TASK CREATED Caller: Self; Patient called, he was D/C from [facility] wearing a 24 hour Holter Monitor. Patient tells me he went to [facility] this week for a CT scan, they took off his monitor to do the test and it was lost. I notified [facility] Biometrics Dept., they will notify the monitor rep. so they can file the correct paperwork. Hosea also tells me he is living on the [place] and it is too hard to get to [facility] for testing and follow up appointments. (he has to take several buses and it takes several hours). Hosea would like to get referred to a Reservations And Ticketing Agent at [facility]. To [facility] for review. ---ssd. Antonia Cuenca - 16 Feb 2021 10:47 AM TASK REASSIGNED: Previously Assigned To Wally Lawton CORRECTION: I spoke with the patient again and now he tells me he wants to follow up with Dr. Lawton in [facility] / [place]. Hosea would like to know if [facility] wants him to wear another 24 hour Holter (since the first one was lost)? If yes, he wants it applied at [facility]. (exercise stress cardiac MRI at [facility] = 03/14/21. follow up OV = 03/23/21.) To [facility] for review. ---Wally Russ - 16 Feb 2021 6:50 PM TASK REPLIED TO: Previously Assigned To Wally Lawton Please arrange for the Holter to be re-applied. Thx. Antonia Cuenca - 17 Feb 2021 10:09 AM TASK REASSIGNED: Previously Assigned To Antonia Cuenca I called [facility] Holter / [facility]VI Dept. ([phone]) and scheduled the 24 hour Holter for 02/21/21 at 12:00pm (noon). I spoke with the patient regarding Dr. Lawton's reply/orders, the patient demonstrated a good understanding. ----ssd. Signatures Electronically signed by : Antonia Cuenca L.P.N.; Feb 17 2021 10:14AM EST (Author) Electronically signed by : Wally Lawton MD; Feb 18 2021 9:52AM EST (Author) Normal [facility] Chart Updateon 02-16-2021 Chart Update Message Recorded as Task Date: 02/14/2021 07:06 PM, Created By: Wally Lawton Task Name: Schedule Appt Assigned To: Ivan Arango Regarding Patient: HOSEA ALVAREZ, Status: In Progress Comment: Wally Lawton - 14 Feb 2021 7:06 PM TASK CREATED I ordered a cardiac MRI and exercise stress MRI on this patient. Please schedule testing and follow up after testing. Please summarize as a Chart Update , and submit to me to sign. Thx. Ivan Arango - 15 Feb 2021 2:27 PM TASK REPLIED TO: Previously Assigned To Ivan Arango [facility] [place]. Patient is scheduled 03/14/21 for MRI at [facility]. Ivan Arango - 16 Feb 2021 9:55 AM TASK IN PROGRESS Ivan Arango - 16 Feb 2021 10:30 AM TASK REPLIED TO: Previously Assigned To Ivan Arango Patient aware of appt. Signatures Electronically signed by : Ivan Arango, ; Feb 16 2021 10:31AM EST (Co-author) Electronically signed by : Wally Lawton MD; Feb 16 2021 6:53PM EST (Author) Normal [facility] CT Abdomen and Pelvis withou t Contraston 02-15-2021 CT Abdomen and Pelvis WO contrast Normal [facility] [facility] [address] Work Phone: CT Chest without Contraston 02-15-2021 CT Chest WO contrast Normal [facility] [facility] [address] Work Phone: Chart Updateon 02-15-2021 Chart Update Diagnoses/Problems Chest pain (786.50) (R07.9) Orders Chest pain MRI Cardiac w/wo contrast with Regadenoson stress for Morph/Funct and Valve Dz; Status:Hold For - Scheduling; Requested for:15Feb2021; Perform:[facility]; Due:[id number];Ordered; For:Chest pain; Ordered By:Wally aLwton; Radiologist to Determine Optimal Study : Y Does the patient have a Cochlear Implant, Pacemaker, Defibrilator, Pacing Wire, Brain Aneurysm Clip, Implanted Nerve or Bone Graft Simulator, Implanted Breast Tissue Peoplesoft Hcm Consultant, Glucose Monitor, or Neulasta Device? : No What are the patient's signs and symptoms? : chest pain, COVID MRI Cardiac w/wo contrast with Treadmill stress for Morph/Funct and Valve Dz; Status:Canceled - New order for pharmacologic study.; Perform:[facility]iology Services Imaging;Ordered; For:Chest pain; Ordered By:Wally Lawton; Reason: Unspecified for MRI Cardiac w/wo contrast with Treadmill stress for Morph/Funct and Valve Dz Radiologist to Determine Optimal Study : Y Does the patient have a Cochlear Implant, Pacemaker, Defibrilator, Pacing Wire, Brain Aneurysm Clip, Implanted Nerve or Bone Graft Simulator, Implanted Breast Tissue [employer] Hcm Consultant, Glucose Monitor, or Neulasta Device? : No What are the patient's signs and symptoms? : chest pain, COVID Chart Update In light of his ascending aortic aneurysm, will switch from exercise MRI to Lexiscan MRI stress, which will be safer for him. Signatures Electronically signed by : Wally Lawton MD; Feb 15 2021 2:01PM EST (Author) Normal Touchworks Complete Blood Count + Diffe rentialon 02-15-2021 Basophils/100 WBC (Bld) 0.3 % 0.0 - 2.[address] [facility] Work Phone: Erythrocyte distribution width (RBC) [Ratio] 12.6 % See Below [facility] [facility] Work Phone: [phone] Comment on above: Reference Range: 11. 5 - 14.5 Hematocrit (Bld) [Volume fraction] 37.9 % below low threshold See Below [facility] [facility] Work Phone: [phone] Comment on above: Reference Range: 41. 0 - 52.0 Hemoglobin (Bld) [Mass/Vol] 12.9 g/dL below low threshold See Below [facility] [facility] Work Phone: [phone] Comment on above: Reference Range: 13. 5 - 17.5 Lymphocytes/100 WBC (Bld) 27.7 % See Below [facility] [facility] Work Phone: [phone] Comment on above: Reference Range: 13. 0 - 44.0 MCHC (RBC) [Mass/Vol] 34.0 g/dL See Below [facility] [address] [facility] Work Phone: [phone] Comment on above: Reference Range: 32. 0 - 36.0 MCV (RBC) [Entitic vol] 84 fL 80 - [address] [facility] Work Phone: [phone] Monocytes/100 WBC (Bld) 8.5 % 2.0 - 10.[address] [facility] Work Phone: [phone] Neutrophils/100 WBC (Bld) 62.9 % See Below [facility] [facility] Work Phone: [phone] Comment on above: Reference Range: 40. 0 - 80.0 Platelets (Bld) [#/Vol] 126 10*3/uL below low threshold 150 - [address] [facility] Work Phone: [phone] RBC (Bld) [#/Vol] 4.51 {x10E12/L} See Below [facility] [facility] Work Phone: [phone] Comment on above: Reference Range: 4.5 0 - 5.90 WBC (Bld) [#/Vol] 3.8 10*3/uL below low threshold 4.4 - 11.[address] [facility] Work Phone: [phone] Complete Blood Count + Differential 0.01 [...] 1.04 {x10E9/L} below low threshold See Below [address] [facility] Work Phone: Comment on above: Reference Range: 1.2 0 - 4.80 Complete Blood Count + Differential 2.37 {x10E9/L} See Below [facility] [facility] Work Phone: Comment on above: Reference Range: 1.2 0 - 7.70 Complete Blood Count + Differential 0.3 % 0.0 - 0.[address] [facility] Work Phone: Comment [...] (I10) Provider Impressions 50 M Pres[facility] ER calling from the waiting room! 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 Multiple ER visits in many hospital systems in at least [place] and [place] History of Present IllnessConsult ? Fausto Calixto autoimmune issues or concerns Refer; [place] [facility] 50 M Presently in [facility] ER calling from the waiting room! [...] (I70.1) Results/Data CT Abdomen and Pelvis without [id number] 11:58AMMDejah sutton Test NameResultFlagReference CT Abdomen and Pelvis without Contrast(Report) Interpreted by: RASHAUN ESTRADA 02/15/21 12:10 Patient Name: HOSEA ALVAREZ STUDY: CT ABDOMEN AND PELVIS WO CONTRAST; CT CHEST WO CONTRAST; 02/15/2021 11:58 am INDICATION: epigastric pain ; pain. COMPARISON: None. ACCESSION NUMBER(S): [id number]; [id number] ORDERING CLINICIAN: DEJAH LEPE TECHNIQUE: Axial CT of the chest, abdomen, and pelvis was performed. Coronal and sagittal reconstructions were performed. No intravenous or oral contrast agents were administered. FINDINGS: Please note that the study is limited without intravenous contrast. CHEST: LUNG/PLEURA/LARGE AIRWAYS: The trachea and central airways are patent. No (more content not included)... Normal [facility] - Chemistry and C hemistry - challengeon 02-15-2021 Albumin BCP dye [Mass/Vol] 4.2 g/dL 3.4 - 5.[address] [facility] Work Phone: [phone] ALP [Catalytic activity/Vol] 46 U/L 33 - [address] [facility] Work Phone: [phone] With P-5'-P [Catalytic activity/Vol] 16 U/L 10 - [address] [facility] Work Phone: [phone] Comment on above: Patients treated wit h Sulfasalazine may generate falsely decreased results for ALT. Anion gap [Moles/Vol] 12 mmol/L 10 - [address] [facility] Work Phone: [phone] AST With P-5'-P [Catalytic activity/Vol] 14 U/L 9 - [address] [facility] Work Phone: [phone] Bilirubin [Mass/Vol] 0.3 mg/dL 0.0 - 1.2 [address] - [facility] Work Phone: [phone] Calcium [Mass/Vol] 9.2 mg/dL 8.6 - 10.[address] [facility] Work Phone: [phone] Chloride [Moles/Vol] 102 mmol/L 98 - [address] [facility] Work Phone: [phone] CO2 [Moles/Vol] 27 mmol/L 21 - [address] [facility] Work Phone: [phone] Creatinine [Mass/Vol] 0.90 mg/dL See Below [facility] [facility] Work Phone: [phone] Comment on above: Reference Range: 0.5 0 - 1.30 Glucose [Mass/Vol] 99 mg/dL 74 - [address] [facility] Work Phone: [phone] Potassium [Moles/Vol] 3.6 mmol/L 3.5 - 5.[address] [facility] Work Phone: [phone] Protein [Mass/Vol] 7.1 g/dL 6.4 - 8.[address] [facility] Work Phone: [phone] Sodium [Moles/Vol] 137 mmol/L 136 - 145 [...] be performed immediately prior to Metamizole dosing. U-dnitbs-o-benzoquinone imine (metabolite of Acetaminophen) will generate erroneously [...] QTC Calculation(Bazett) : 394 ms Calculated P [place] : 39 degrees Calculated R [place] : -11 degrees Calculated T [place] : 22 degrees Diagnosis:Normal sinus rhythm Normal ECG When compared with ECG of 15-FEB-2021 09:05, PREVIOUS ECG IS PRESENT Confirmed by Elizabet Gimenez ([id number]) on 02/15/2021 1:12:28 PM See also the report from this date [facility] Troponin I, Serumon 02-16-20 21 Troponin I.cardiac [Mass/Vol] ng/mL See Below [facility] [...] is performed using different testing methodology at [facility] than at other [facility]. Direct result comparisons should only be made within the same method. Laboratory - Chemistry and C hemistry - challengeon 02-14-2021 Anion gap [Moles/Vol] Anion Gap 18 MMOL/ L (0-19 MMOL/L) 0 - 19 MMOL/L [facility] Calcium [Mass/Vol] Calcium 8.6 MG/DL (8.5-10.4 MG/DL) 8.5 - 10.4 MG/DL [facility] Chloride [Moles/Vol] Chloride 102 MMOL/L (97-107 MMOL/L) 97 - 107 MMOL/L [facility] CO2 [Moles/Vol] Carbon Dioxide 19 MM OL/L L (24-31 MMOL/L) Low 24 - 31 MMOL/L [facility] Creatinine [Mass/Vol] Creatinine R 0.9 M G/DL (0.4-1.6 MG/DL) 0.4 - 1.6 MG/DL [facility] GFR/1.73 sq M.predicted MDRD (S/P/Bld) [Vol rate/Area] EGFR 95 mL/min/1.73 m2 (Reference Range: not available) GFR ml/min/1.73m2 Stage ----- 90 1 60-89 2 30-59 3 15-29 4 <15 5 For -Americans, multiply EGFR result by 1.210 Calculation not validated for patients under 18 years of age. Performed at [facility] [id number] [place] [id number] [facility] Glucose [Mass/Vol] Glucose 85 MG/DL (65 -99 MG/DL) 65 - 99 MG/DL [facility] Potassium [Moles/Vol] Potassium R 3.9 MM OL/L (3.4-5.1 MMOL/L) 3.4 - 5.1 MMOL/L [employer] Sodium [Moles/Vol] Sodium 139 MMOL/L (133-145 MMOL/L) 133 - 145 MMOL/L [employer] Troponin T.cardiac [Mass/Vol] HS Troponin T,Gen 5 [...] until 8 hours following last biotin administration. [facility] Urea nitrogen [Mass/Vol] BUN 14 MG/DL (8-25 MG/DL) 8 - 25 MG/DL [facility] Urea nitrogen/Creatinine [Mass ratio] BUN Creatinine Ratio 15.6 RATIO (8-21 RATIO) 8 - 21 RATIO [facility] Laboratory - Hematology and Cell countson 02-14-2021 Basophils (Bld) [#/Vol] Abs Baso 0.01 K/UL (0.00-0.22 K/UL) 0.00 - 0.22 K/UL [facility] Basophils/100 WBC (Bld) Basophil 0.20 % (0-1 %) 0 - 1 % [facility] Differential cell count method Nom (Bld) Diff Type AUTO DIFF (Reference Range: not available) [facility] Eosinophils (Bld) [#/Vol] Abs Eos 0.01 K/UL (0-0.45 K/UL) 0 - 0.45 K/UL S Eosinophils/100 WBC (Bld) Eosinophil 0.20 % (0-3 %) 0 - 3 % S Erythrocyte distribution width (RBC) [Entitic vol] RDW SD 37.7 FL (37.0-54.0 FL) 37.0 - 54.0 FL [facility] Erythrocyte distribution width (RBC) [Ratio] RDW CV 12.4 % (11.7-15.0 %) 11.7 - 15.0 % [facility] Hematocrit (Bld) [Volume fraction] HCT 36.5 % L (41-50 %) Low 41 - 50 % [facility] Hemoglobin (Bld) [Mass/Vol] HGB 12.1 GM/DL L (13.5-16.5 GM/DL) Low 13.5 - 16.5 GM/DL [facility] Immature granulocytes (Bld) [#/Vol] Abs Imm Neut 0.04 K/UL (0.0-0.1 K/UL) 0.0 - 0.1 K/UL [facility] Lymphocytes (Bld) [#/Vol] Abs Lymph 1.23 K/UL (1.2-3.2 K/UL) 1.2 - 3.2 K/UL [facility] Lymphocytes/100 WBC (Bld) Lymphocyte 22.30 % (20-40 %) 20 - 40 % [facility] MCH (RBC) [Entitic mass] MCH 28.4 PG (26-34 PG) 26 - 34 PG [facility] MCHC (RBC) [Mass/Vol] MCHC 33.2 % (31-37 %) 31 - 37 % S MCV (RBC) [Entitic vol] MCV 85.7 FL (80-100 FL) 80 - 100 FL [facility] Monocytes (Bld) [#/Vol] Abs Wilbarger 0.41 K/UL (0-0.8 K/UL) 0 - 0.8 K/UL [facility] Monocytes/100 WBC (Bld) Monocyte 7.40 % (0-8 %) 0 - 8 % [facility] Neutrophils (Bld) [#/Vol] Abs.Neut.Calculated 3.82 K/UL (Reference Range: not available) Performed at [address] [address] [facility] Neutrophils (Bld) [#/Vol] Abs Neut 3.82 K/UL (1.8-7.7 K/UL) 1.8 - 7.7 K/UL [facility] Neutrophils.immature/ 100 WBC (Bld) Immature Neut % 0.70 % (0.0-1.0 %) 0.0 - 1.0 % [facility] Nucleated RBC/100 WBC (Bld) [Ratio] NRBCs 0 /100 WBC (0 /100 WBC) [facility] Platelet mean volume (Bld) [Entitic vol] MPV 12.0 CU (7.0-12.6 CU) 7.0 - 12.6 CU [facility] Platelets (Bld) [#/Vol] PLT 157 K/UL (150-450 K/UL) 150 - 450 K/UL [facility] RBC (Bld) [#/Vol] RBC 4.26 M/UL L (4.5 -5.5 M/UL) Low 4.5 - 5.5 M/UL [facility] Segmented neutrophils/100 WBC (Bld) Granulocyte 69.20 % (50-70 %) 50 - 70 % [facility] WBC (Bld) [#/Vol] WBC 5.5 K/UL (4.5-11 .0 K/UL) 4.5 - 11.0 K/UL [facility] No Panel Informationon 02-14 HS Troponin T Delta No previous result Performed at [address] [address] (0-4 ) 0 - 4 [facility] XR Chest Portable (1view) (Reference Range: not available) *FINAL Date of Service: 02/14/2021 20:43 Adm #: [id number] Reading Dr:GALA DIA Signoff Dr: GALA DIA [...] pneumonia, pleural effusion or pneumothorax. [facility] front desk specialist overlies the left chest.. IMPRESSION: An imaging explanation for the current clinical complaint is not identified [id number] This report has been produced using speech recognition. Original Interpreting Physician: GALA DIA MD Original Transcribed by/Date: PSCB Feb 14 2021 9:53P Original Electronically Signed by/Date: GALA DIA MD Feb 14 2021 9:53P Addendum Interpreting Physician: Addendum Transcribed by/Date: NO ADDENDUM Addendum Electronically Signed by/Date: [facility] Laboratory - Chemistry and C hemistry - challengeon 02-13-2021 Anion gap [Moles/Vol] 12 mmol/L 10 - 20 MP- [facility]iology -[facility] [place] [facility] Work Phone: Calcium [Mass/Vol] 8.7 mg/dL 8.6 - 10.3 MP-Car diology -[facility] [place] [facility] Work Phone: Chloride [Moles/Vol] 104 mmol/L 98 - 107 MP-C ardiology -[facility] [place] [facility] Work Phone: CO2 [Moles/Vol] 26 mmol/L 21 - 32 -Cardio [facility] 200 Work Phone: Creatinine [Mass/Vol] 0.74 mg/dL See Below [facility] 200 Work Phone: Comment on above: Reference Range: 0.5 0 - 1.30 Glucose [Mass/Vol] 102 mg/dL above high threshold 74 - 99 [facility] 200 Work Phone: [phone] Potassium [Moles/Vol] 3.9 mmol/L 3.5 - 5.3 [facility] 200 Work Phone: [phone] Sodium [Moles/Vol] 138 mmol/L 136 - 145 [facility] Work Phone: Urea nitrogen [Mass/Vol] 12 mg/dL 6 - 23 [facility] 200 Work Phone: Laboratory - Hematology and Cell countson 02-13-2021 Erythrocyte distribution width (RBC) [Ratio] 12.5 % See Below [facility] 200 Work Phone: Comment on above: Reference Range: 11. 5 - 14.5 Hematocrit (Bld) [Volume fraction] 38.6 % below low threshold See Below [facility] 200 Work Phone: Comment on above: Reference Range: 41. 0 - 52.0 Hemoglobin (Bld) [Mass/Vol] 12.4 g/dL below low threshold See Below [facility] 200 Work Phone: Comment on above: Reference Range: 13. 5 - 17.5 MCHC (RBC) [Mass/Vol] 32.1 g/dL See Below [facility] 200 Work Phone: Comment on above: Reference Range: 32. 0 - 36.0 MCV (RBC) [Entitic vol] 88 fL 80 - 100 [facility] 200 Work Phone: [phone] Platelets (Bld) [#/Vol] 142 10*3/uL below low threshold 150 - 450 [facility] [employer] 200 Work Phone: RBC (Bld) [#/Vol] 4.37 {x10E12/L} below low threshold See Below [employer] 200 Work Phone: Comment on above: Reference Range: 4.5 0 - 5.90 WBC (Bld) [#/Vol] 3.5 10*3/uL below low threshold 4.4 - 11.3 [facility] 200 Work Phone: No Panel Informationon 02-13 [email or web address]?RetrieveTestByDateTim e?GtvmwefMF=[id number]&Da te=13-02-2021&Time=23%3a 04%3a50%3a00&TestType=EC G&Site=12&OutputType=PDF &Ext=PDF [facility] [employer] Work Phone: [phone] Normal sinus rhythm [facility] Work Phone: [phone] Abnormal [facility] [employer] Work Phone: [phone] [facility] [employer] Work Phone: [phone] [facility] [employer] Work Phone: [phone] [facility] [employer] Work Phone: [phone] [facility] Work Phone: [phone] [facility] Work Phone: [phone] [facility] Work Phone: [phone] [facility] [employer] Work Phone: [phone] [facility] [employer] Work Phone: [phone] [facility] [employer] Work Phone: [phone] [facility] [employer] Work Phone: [phone] [facility] [employer] Work Phone: [phone] [facility] Work Phone: [phone] [facility] [employer] Work Phone: 0.0 {/100_WBC} 0.0 - 0.0 -Cardiol og -[facility] [place] [facility] Work Phone: >[phone] >60 -Cardiology -[facility] [place] [facility] Work Phone: Comment on above: CALCULATIONS OF NIKOLE MATED GFR ARE PERFORMED USING THE MDRD STUDY EQUATION FOR THE IDMS-TRACEABLE CREATININE METHODS. CLIN CHEM 2007;53:766-72 CT Angio Cheston 02-12-2021 CTA Chest vessels Normal [facility] 200 Work Phone: Complete Blood Count + Diffe rentialon 02-12-2021 Basophils/100 WBC (Bld) 0.5 % 0.0 - 2.0 [facility] [place] [facility] Work Phone: Erythrocyte distribution width (RBC) [Ratio] 12.6 % See Below [facility] 200 Work Phone: Comment on above: Reference Range: 11. 5 - 14.5 Hematocrit (Bld) [Volume fraction] 34.4 % below low threshold See Below [facility] 200 Work Phone: Comment on above: Reference Range: 41. 0 - 52.0 Hemoglobin (Bld) [Mass/Vol] 11.4 g/dL below low threshold See Below [facility] [place] [facility] Work Phone: Comment on above: Reference Range: 13. 5 - 17.5 Lymphocytes/100 WBC (Bld) 22.6 % See Below [facility] [place] [facility] Work Phone: Comment on above: Reference Range: 13. 0 - 44.0 MCHC (RBC) [Mass/Vol] 33.1 g/dL See Below [facility] [place] [facility] Work Phone: Comment on above: Reference Range: 32. 0 - 36.0 MCV (RBC) [Entitic vol] 86 fL 80 - 100 -Cardiology -[place] [facility] 200 Work Phone: [phone] Monocytes/100 WBC (Bld) 8.0 % 2.0 - 10.0 [employer] [facility] [facility] 200 Work Phone: Neutrophils/100 WBC (Bld) 67.5 % See Below [employer] -[place] [facility] 200 Work Phone: [phone] Comment on above: Reference Range: 40. 0 - 80.0 Platelets (Bld) [#/Vol] 141 10*3/uL below low threshold 150 - 450 [facility] [facility] 200 Work Phone: RBC (Bld) [#/Vol] 4.01 {x10E12/L} below low threshold See Below [employer] -[place] [facility] 200 Work Phone: [phone] Comment on above: Reference Range: 4.5 0 - 5.90 WBC (Bld) [#/Vol] 3.8 10*3/uL below low threshold 4.4 - 11.3 [facility] Work Phone: Complete Blood Count + Differential 0.02 {x10E9/L} See Below [facility] 200 Work Phone: [phone] Comment on above: Reference Range: 0.0 0 - 0.10 Complete Blood Count + Differential 0.04 {x10E9/L} See Below [facility] 200 Work Phone: Comment on above: Reference Range: 0.0 0 - 0.70 Complete Blood Count + Differential 0.30 {x10E9/L} See Below [facility] Work Phone: [phone] Comment on above: Reference Range: 0.1 0 - 1.00 Complete Blood Count + Differential 0.85 {x10E9/L} below low threshold See Below [employer] -[place] [facility] 200 Work Phone: [phone] Comment on above: Reference Range: 1.2 0 - 4.80 Complete Blood Count + Differential 2.54 {x10E9/L} See Below [employer] [facility] [employer] Work Phone: Comment on above: Reference Range: 1.2 0 - 7.70 Complete Blood Count + Differential 1.1 % 0.0 - 6.0 [facility] [place] [facility] Work Phone: Complete Blood Count + Differential 0.3 % 0.0 - 0.9 [facility] [employer] Work Phone: Comment on above: Immature Granulocyte Count (IG) includes promyelocytes, myelocytes and metamyelocytes but does not include bands. Percent differential counts (%) should be interpreted in the context of the absolute cell counts (cells/L). Complete Blood Count + Differential 0.0 {/100_WBC} 0.0 - 0.0 [facility] [employer] Work Phone: Coronavirus 2019 RNA by PCR, Screening Asymptomticon 02-12-2021 Coronavirus 2019 RNA by PCR, Screening Asymptomtic Not detected Normal See Below [facility] [place] [employer] Work Phone: Comment on above: SOURCE: Nasal, [...] this test method. Fact sheet for providers: www.fda.gov/media/501221/downloadFact sheet for patients: www.fda.gov/media/189473/downloadThis test has received FDA Emergency Use Authorization (EUA) and has been verified by [facility] ([facility]). This test is only authorized for the duration of time that circumstances exist to justify the authorization of the emergency use of in vitro diagnostic tests for the detection of SARS-CoV-2 virus and/or diagnosis of COVID-19 infection under section 564(b)(1) of the Act, 21 U.S.C. 360bbb-3(b)(1), unless the authorization is terminated or revoked sooner. [facility] is certified under CLIA-88 as qualified to perform high complexity testing. Testing is performed in the [facility] laboratories located at [address] [place] [address]. Laboratory - Chemistry and C hemistry - challengeon 02-12-2021 Albumin BCP dye [Mass/Vol] 3.9 g/dL 3.4 - 5.0 [facility] Work Phone: ALP [Catalytic activity/Vol] 42 U/L 33 - 120 [facility] -[place] [facility] 200 Work Phone: ALT With P-5'-P [Catalytic activity/Vol] 14 U/L 10 - 52 [facility] 200 Work Phone: Comment on above: Patients treated wit h Sulfasalazine may generate falsely decreased results for ALT. Anion gap [Moles/Vol] 10 mmol/L 10 - 20 - [facility] -[facility] 200 Work Phone: AST With P-5'-P [Catalytic activity/Vol] 14 U/L 9 - 39 [facility] [facility] 200 Work Phone: Bilirubin [Mass/Vol] 0.4 mg/dL 0.0 - 1.2 [facility] [facility] 200 Work Phone: Calcium [Mass/Vol] 8.3 mg/dL below low threshold 8.6 - 10.3 [facility] [facility] 200 Work Phone: Chloride [Moles/Vol] 105 mmol/L 98 - 107 -[facility] [facility] 200 Work Phone: CO2 [Moles/Vol] 27 mmol/L 21 - 32 -[facility] 200 Work Phone: Creatinine [Mass/Vol] 0.92 mg/dL See Below [facility] -[place] [facility] 200 Work Phone: Comment on above: Reference Range: 0.5 0 - 1.30 Glucose [Mass/Vol] 94 mg/dL 74 - 99 -Car diology -[place] [facility] 200 Work Phone: [phone] Potassium [Moles/Vol] 4.0 mmol/L 3.5 - 5.3 - Cardiology -[facility] [place] [facility] Work Phone: [phone] Protein [Mass/Vol] 6.2 g/dL below low threshold 6.4 - 8.2 -Cardiology -[facility] [place] [facility] Work Phone: [phone] Sodium [Moles/Vol] 138 mmol/L 136 - 145 MP-Car dioly -[facility] [place] 200 Work Phone: Urea nitrogen [Mass/Vol] 12 mg/dL 6 - 23 -Cardiology -[facility] [place] 200 Work Phone: Laboratory - Coagulationon 0 02-12-2021 INR Coag (PPP) [Relative time] 1.0 {INR} 0.9 - 1.1 [facility] [place] [facility] Work Phone: [phone] PT Coag (PPP) [Time] 11.9 s See Below MP-C ardiology -[facility] [place] [facility] Work Phone: Comment on above: Reference Range: 10. 1 - 13.3 Laboratory - Drug toxicology on 02-12-2021 Amphetamines Screen Ql (U) Negative NEGATIVE [facility] 200 Work Phone: Comment on above: CUTOFF LEVEL: 500 NG /ML Cross-reactivity has been reported with high concentrations of the following drugs: buproprion, chloroquine, chlorpromazine, ephedrine, mephentermine, fenfluramine, phentermine, phenylpropanolamine, pseudoephedrine, and propranolol. Barbiturates Screen Ql (U) Negative NEGATIVE -[facility] -[place] [facility] 200 Work Phone: Comment on above: CUTOFF LEVEL: 200 NG /ML Benzodiazepines Ql (U) Negative NEGATIVE [facility] -[facility] [place] [facility] Work Phone: Comment on above: CUTOFF LEVEL: 200 NG /ML Benzoylecgonine Screen Ql (U) Negative NEGATIVE -Cardiology -[place] [facility] 200 Work Phone: Comment on above: CUTOFF LEVEL: 150 NG /ML Cannabinoids Screen Ql (U) Negative NEGATIVE MP-Cardiology -[place] [facility] 200 Work Phone: Comment on above: CUTOFF LEVEL: 50 NG/ ML Methadone Screen Ql (U) Negative NEGATIVE MP-Cardiology -[place] [facility] 200 Work Phone: Comment on above: CUTOFF LEVEL: 150 NG /ML The metabolite T-dpmyi-gzhmmzozubjkuf (LAAM) is not detected by this method in concentrations that would be found in the urine of patients on LAAM therapy. Opiates Screen Ql (U) Negative NEGATIVE MP- Cardiology -[place] [facility] 200 Work Phone: Comment on above: [...] Phencyclidine Ql (U) Negative NEGATIVE MP-C ardiology -[place] [facility] 200 Work Phone: Comment on above: CUTOFF LEVEL: 25 NG/ ML Cross-reactivity has been reported with dextromethorphan. Magnesium, Serumon Magnesium [Mass/Vol] 1.80 mg/dL See Below [facility] 200 Work Phone: Comment on above: Reference Range: 1.6 0 - 2.40 No Panel Informationon 02-12 [email or web address]?RetrieveTestByDateTim e?XnsthwdFT=[id number]&Da te=12-02-2021&Time=18%3a 11%3a14%3a00&TestType=EC G&Site=12&OutputType=PDF &Ext=PDF [facility] [employer] Work Phone: [phone] Normal sinus rhythm [facility] [employer] Work Phone: [phone] Abnormal [facility] [employer] Work Phone: [phone] [facility] [employer] Work Phone: [phone] [facility] [employer] Work Phone: [phone] [facility] [employer] Work Phone: [phone] [facility] [employer] Work Phone: [phone] [facility] [employer] Work Phone: [phone] [facility] [employer] Work Phone: [phone] [facility] [employer] Work Phone: [phone] [facility] [employer] Work Phone: [phone] [facility] [employer] Work Phone: [phone] 1 [facility] [employer] Work Phone: [phone] 1 [facility] [employer] Work Phone: [phone] 1 [facility] [employer] Work Phone: [phone] [facility] [employer] Work Phone: [phone] [facility] [employer] Work Phone: [phone] SEE BELOW [facility] [employer] [facility] 200 Work Phone: Comment on above: Drug screen results are presumptive and should not be used to assess compliance with prescribed medication. Contact the performing [facility] laboratory to add-on definitive confirmatory testing if [...] medical directors. 42 pg/mL 0 - 99 [facility] [facility] Work Phone: Comment on above: . <100 pg/mL - Heart failure [id number] pg/mL - Intermediate probability of acute heart. failure exacerbation. Correlate with clinical. context and patient history. >=300 pg/mL - Heart Failure likely. Correlate with clinical. context and patient history.BNP testing is performed using different testing methodology at [facility] than at other [facility]. Direct result comparisons should only be made within the same method. >60 >60 [facility] [employer] 200 Work Phone: Comment on above: CALCULATIONS OF NIKOLE MATED GFR ARE PERFORMED USING THE MDRD STUDY EQUATION FOR THE IDMS-TRACEABLE CREATININE METHODS. CLIN CHEM 2007;53:766-72 [email or web address]?RetrieveTestByDateTim e?[id number]=[id number]&Da te=12-02-2021&Time=16%3a 31%3a11%3a00&TestType=EC G&Site=12&OutputType=PDF &Ext=PDF [facility] [employer] Work Phone: [phone] Normal sinus rhythm [facility] Work Phone: [phone] [facility] [employer] Work Phone: [phone] [facility] [employer] Work Phone: [phone] [facility] [employer] Work Phone: [phone] [facility] [employer] Work Phone: [phone] [facility] [employer] Work Phone: [phone] [facility] [employer] Work Phone: [phone] [facility] [employer] Work Phone: [phone] [facility] [employer] Work Phone: [phone] [facility] [employer] Work Phone: [phone] [facility] [employer] Work Phone: [phone] [facility] [employer] Work Phone: [phone] [facility] [employer] Work Phone: [phone] [facility] [employer] Work Phone: [phone] [facility] [employer] Work Phone: [phone] [facility] [employer] Work Phone: Troponin I, Serumon 02-13-20 21 Troponin I.cardiac [Mass/Vol] ng/mL See Below [employer]225 Work Phone: Comment on above: Reference Range: [...] is performed using different testing methodology at [facility] than at other [facility]. Direct result comparisons should only be made within the same method. Troponin I.cardiac [Mass/Vol] ng/mL See Below [employer]225 Work Phone: Comment on above: Reference Range: [...] is performed using different testing methodology at [facility] than at other [facility]. Direct result comparisons should only be made within the same method. Troponin I.cardiac [Mass/Vol] ng/mL See Below [employer]225 Work Phone: Comment on above: Reference Range: [...] is performed using different testing methodology at [facility] than at other [facility]. Direct result comparisons should only be made within the same method. Troponin I.cardiac [Mass/Vol] ng/mL See Below [employer]225 Work Phone: Comment on above: Reference Range: [...] is performed using different testing methodology at [facility] than at other [facility]. Direct result comparisons should only be made within the same method. Troponin I.cardiac [Mass/Vol] Canceled [employer]225 Work Phone: Comment on above: LESS THAN [...] is performed using different testing methodology at [facility] than at other [facility]. Direct result comparisons should only be made within the same method. Urinalysison 02-12-2021 Color (U) COLORLESS See Below [employer]225 Work Phone: Comment on above: Reference Range: STR AW,YELLOW Glucose Ql (U) Negative NEGATIVE [facility] Work Phone: [phone] Ketones Ql (U) Negative NEGATIVE [facility] [employer] 200 Work Phone: [phone] Leukocyte esterase Test strip Ql (U) Negative NEGATIVE [facility] [employer] 200 Work Phone: [phone] pH (U) 6.0 [pH] 5.0 - 8.0 [facility] [employer] 200 Work Phone: [phone] Protein (U) [Mass/Vol] Negative NEGATIVE [facility] [facility] Work Phone: [phone] RBC (U) [#/Vol] Negative NEGATIVE [facility] [employer] 200 Work Phone: Specific gravity (U) [Rel density] 1.003 1 below low threshold See Below [facility] [facility] 200 Work Phone: Comment on above: Reference Range: 1.0 05 - 1.035 Urinalysis Negative NEGATIVE [facility] [employer] 200 Work Phone: [phone] Comment on above: CUTOFF LEVEL: 1 NG/M L Urinalysis <2.0 0.0 - 1.9 [facility] 200 Work Phone: [phone] Urinalysis CLEAR CLEAR [facility] [employer] 200 Work Phone: ALC ETHANOLon 02-10-2021 ALC ETHANOL 24.0 mg/dL High <10.0 [facility] Comment on above: Result Comment: UNCO NFIRMED Toxicology results. For MEDICAL purposes only. Performed By: #### L 500.87173, L500.53344, L500.98610, L500.59059, L500.91668 #### Test performed at: [address] [address] CBC W/DIFFon 02-10-2021 BASO ABS 0.0 K/uL Normal 0.0-0.2 [facility] Comment on above: Performed By: #### L 200.47898 #### Test performed at: [address] [address] Basophils/100 WBC (Bld) 0.5 % Normal [facility] Comment on above: Performed By: #### L 200.85629 #### Test performed at: [address] [address] EOS ABS 0.1 K/uL Normal 0.0-0.5 [facility] Comment on above: Performed By: #### L 200.62424 #### Test performed at: [address] [address] Eosinophils/100 WBC (Bld) 2.4 % Normal [facility] Comment on above: Performed By: #### L 200.61315 #### Test performed at: [address] [address] Erythrocyte distribution width (RBC) [Ratio] 12.3 % Normal 11.5-14.5 [facility] Comment on above: Performed By: #### L 200.50681 #### Test performed at: [address] [address] Hematocrit (Bld) [Volume fraction] 36.3 % Low 39.0-55.0 [facility] Comment on above: Performed By: #### L 200.78226 #### Test performed at: [address] [address] Hemoglobin (Bld) [Mass/Vol] 12.1 g/dL Low 14.0-16.5 [facility] Comment on above: Performed By: #### L 200.70446 #### Test performed at: [address] [address] IG % 0.5 % Normal [facility] Comment on above: Performed By: #### L 200.83971 #### Test performed at: [address] [address] IG ABS 0.02 K/uL Normal 0-0.05 [facility] Comment on above: Performed By: #### L 200.22864 #### Test performed at: [address] [address] Lymphocytes (Bld) [#/Vol] 1.3 10*3/uL Normal 1.2-3.5 [facility] Comment on above: Performed By: #### L 200.50906 #### Test performed at: [place] [address] Lymphocytes/100 WBC (Bld) 35.9 % Normal [facility] Comment on above: Performed By: #### L 200.02682 #### Test performed at: [address] [address] MCH (RBC) [Entitic mass] 28.5 pg Normal 25.4-34.6 [facility] Comment on above: Performed By: #### L 200.32164 #### Test performed at: [address] [address] MCHC (RBC) [Mass/Vol] 33.3 g/dL Normal 31.5-36.5 [facility] Comment on above: Performed By: #### L 200.34817 #### Test performed at: [address] [address] MCV (RBC) [Entitic vol] 85.4 fL Normal 80.0-100.0 [facility] Comment on above: Performed By: #### L 200.49318 #### Test performed at: [address] [address] MONO ABS 0.3 K/uL Normal 0.0-1.0 [facility] Comment on above: Performed By: #### L 200.11474 #### Test performed at: [address] [address] Monocytes/100 WBC (Bld) 8.6 % Normal [facility] Comment on above: Performed By: #### L 200.24427 #### Test performed at: [address] [address] NEUTROPHIL ABS 1.9 K/uL Normal 1.4-6.6 [facility] Comment on above: Performed By: #### L 200.19652 #### Test performed at: [address] [address] Neutrophils/100 WBC (Bld) 52.1 % Normal [facility] Comment on above: Performed By: #### L 200.99585 #### Test performed at: [address] [address] NRBC # 0.000 K/uL Normal 0-0.012 [facility] Comment on above: Performed By: #### L 200.91435 #### Test performed at: [address] [address] NRBC % 0.0 /100 WBC Normal 0-0.2 [facility] Comment on above: Performed By: #### L 200.07882 #### Test performed at: [address] [address] Platelet mean volume (Bld) [Entitic vol] 11.6 fL Normal 8.7-12.4 [facility] Comment on above: Performed By: #### L 200.57348 #### Test performed at: [address] [address] Platelets (Bld) [#/Vol] 147 10*3/uL Normal 140-440 [facility] Comment on above: Performed By: #### L 200.23437 #### Test performed at: [address] [address] RBC (Bld) [#/Vol] 4.25 10*6/uL Normal 3.5-5.5 [facility] Comment on above: Performed By: #### L 200.35756 #### Test performed at: [address] [address] WBC (Bld) [#/Vol] 3.7 10*3/uL Low 3.9-11.0 [facility] Comment on above: Performed By: #### L 200.24653 #### Test performed at: [address] [address] CKon 02-10-2021 CK [Catalytic activity/Vol] 44 U/L Normal 39-308 [facility] Comment on above: Performed By: #### L 500.95866, L500.38674, L500.93716, L500.20701, L500.86072 #### Test performed at: [address] [address] COMP META PANELon 02-10-2021 Albumin [Mass/Vol] 3.6 g/dL Normal 3.4-5.0 [facility] Comment on above: Performed By: #### L 500.78593, L500.44966, L500.32154, L500.06287, L500.03766 #### Test performed at: [address] [address] ALK PHOS TOTAL 49 U/L Normal 45-117 [facility] Comment on above: Performed By: #### L 500.17351, L500.85117, L500.51250, L500.42829, L500.41852 #### Test performed at: [place] 1216915 ALT [Catalytic activity/Vol] 25 U/L Normal 13-61 [facility] Comment on above: Performed By: #### L 500.91364, L500.79939, L500.52837, L500.37950, L500.54674 #### Test performed at: [address] [address] AST [Catalytic activity/Vol] 9 U/L Low 15-37 [facility] Comment on above: Performed By: #### L 500.33875, L500.20248, L500.71264, L500.51111, L500.07517 #### Test performed at: [address] [address] BILI TOTAL 0.3 mg/dL Normal 0.2-1.0 [facility] Comment on above: Performed By: #### L 500.42201, L500.30087, L500.71352, L500.81256, L500.76346 #### Test performed at: [address] [address] Calcium [Mass/Vol] 8.4 mg/dL Low 8.5-10.1 [facility] Comment on above: Performed By: #### L 500.25101, L500.46370, L500.24732, L500.84567, L500.27559 #### Test performed at: [address] [address] Chloride [Moles/Vol] 105 mmol/L Normal 98-107 [facility] Comment on above: Performed By: #### L 500.38539, L500.96926, L500.41265, L500.50088, L500.24813 #### Test performed at: [address] [address] CO2 [Moles/Vol] 23 mmol/L Normal 21-32 [facility] Comment on above: Performed By: #### L 500.73108, L500.84580, L500.88103, L500.61936, L500.81170 #### Test performed at: [address] [address] Creatinine [Mass/Vol] 0.890 mg/dL Normal 0.700-1.300 [facility] Comment on above: Performed By: #### L 500.29070, L500.32002, L500.38441, L500.23079, L500.43852 #### Test performed at: [address] [address] Glucose [Mass/Vol] 91 mg/dL Normal 70-99 [facility] Comment on above: Result Comment: Fast ing GLUCOSE reference range has been updated per (ADA) [place] [employer]'s recommendation. 12/16/2018 Performed By: #### L 500.20259, L500.29442, L500.09739, L500.42864, L500.08342 #### Test performed at: [address] [address] Potassium [Moles/Vol] 3.8 mmol/L Normal 3.5-5.1 [facility] Comment on above: Performed By: #### L 500.65775, L500.15857, L500.79627, L500.46867, L500.14658 #### Test performed at: [address] [address] Protein [Mass/Vol] 6.7 g/dL Normal 6.4-8.2 [facility] Comment on above: Performed By: #### L 500.15644, L500.40922, L500.70162, L500.60788, L500.04342 #### Test performed at: [address] [address] Sodium [Moles/Vol] 138 mmol/L Normal 136-145 [facility] Comment on above: Performed By: #### L 500.41417, L500.46418, L500.21969, L500.66947, L500.53625 #### Test performed at: [place] [address] [place] [id number] Urea nitrogen [Mass/Vol] 17 mg/dL Normal 7-18 [facility] Comment on above: Performed By: #### L 500.46359, L500.84244, L500.57774, L500.18050, L500.73320 #### Test performed at: [place] [address] [place] [id number] ED Provider Reporton 021 ED Provider Report [facility] Pt Name: HOSEA ALVAREZ MR#: [id number] [address] [place] [address] ACCT: [id number] : 72 EMERGENCY PROVIDER REPORT ADM Date: 02/09/21 ER Physician: Gordon Wade MD History of Present Illness Time Seen by [id number] Source of Information PATIENT Triage Complaint CHEST [...] symptoms. The patient was seen at the [facility] and [facility] over the last 24 hours. The [...] Laboratory Tests Verdana 4d 02/10 02/09 0035 2333 Chemistry Sodium (136 - 145 mmol/L) 138 [...] (%) 52.1 Lymph % (Auto) (%) 35.9 [place] % (Auto) (%) 8.6 Eos % (Auto) (%) 2.4 Baso % (Auto) (%) 0.5 Neut # (Auto) (1.4 - 6.6 K/uL) 1.9 Lymph # (Auto) (1.2 - 3.5 K/uL) 1.3 [place] # (Auto) (0.0 - 1.0 K/uL) 0.3 [...] (Negative) NEGATIV (more content not included)... Normal [facility] EKGon 02-10-2021 Electrocardiogram Acquired on 02/10/20 21 [...] PM Referred By: Confirmed By:NATIVIDAD POTTS MD [id number] 2020 [facility] PT NAME: HOSEA ALVAREZ MR#: [id number] [address] [place] [address] ACCT: [id number] : 72 EKG REPORT Normal [facility] GFR ESTIMATEon 02-10-2021 IF AMER > 60 Normal > 60 [facility] Comment on above: Result Comment: eGFR (Estimated GFR) Units of measure:mL/min/1.73 meters sq. *CALCULATION REVISED 07/12/2015;IDMS-traceable MDRD equation eGFR is derived from the reexpressed MDRD Study equation using the following parameters: serum creatinine, age, gender and race. An eGFR<60 mL/min/1.73m2 for >3 months is consistent with chronic kidney disease. Refer to KDOQI guidelines for clinical interpretation. Performed By: #### L 500.45210, L500.68052, L500.74560, L500.20893, L500.65746 #### Test performed at: [place] [address] IF non-AFR AMER > 60 Normal > 60 [facility] Comment on above: Performed By: #### L 500.96195, L500.31701, L500.12379, L500.61131, L500.49200 #### Test performed at: [place] [address] LIMIT UR TOXon 02-10-2021 UR AMPH Negative Normal Negative [facility] Comment on above: Result Comment: CUTO VI=2365 Performed By: #### L 600.03046 #### Test performed at: [place] [address] UR CIELO Negative Normal Negative [facility] Comment on above: Result Comment: CUTO DC=456 Performed By: #### L 600.03459 #### Test performed at: [place] [address] UR KAYA Negative Normal Negative [facility] Comment on above: Result Comment: CUTO YE=973 Performed By: #### L 600.40034 #### Test performed at: [place] [address] UR BUPREN/NORBU Negative Normal Negative [facility] Comment on above: Result Comment: CUTO FF=10 Performed By: #### L 600.06988 #### Test performed at: [place] [address] UR LULY/THC Negative Normal Negative [facility] Comment on above: Result Comment: CUTO FF=50 Performed By: #### L 600.11898 #### Test performed at: [place] [address] UR CHATO Negative Normal Negative [facility] Comment on above: Result Comment: CUTO AT=369 Performed By: #### L 600.12228 #### Test performed at: [place] [address] UR ECSTASY Negative Normal Negative [facility] Comment on above: Result Comment: CUTO ZR=893 Performed By: #### L 600.13513 #### Test performed at: [place] [address] UR FENTANYL Negative Normal Negative [facility] Comment on above: Result Comment: CUTO FA=0883 Performed By: #### L 600.00753 #### Test performed at: [place] [address] UR METH Negative Normal Negative [facility] Comment on above: Result Comment: CUTO ZD=318 Performed By: #### L 600.90872 #### Test performed at: [place] [address] UR OPIAT Negative Normal Negative [facility] Comment on above: Result Comment: CUTO XG=046 Performed By: #### L 600.88301 #### Test performed at: [place] [address] UR OXYCODONE Negative Normal Negative [facility] Comment on above: Result Comment: CUTO ZW=842 Performed By: #### L 600.13461 #### Test performed at: [place] [address] UR PCP Negative Normal Negative [facility] Comment on above: Result Comment: CUTO FF=25 Performed By: #### L 600.61050 #### Test performed at: [place] [address] PH TOX 5.0 Normal 5.0-8.0 [facility] Comment on above: Performed By: #### L 600.60076 #### Test performed at: [place] [address] [address] TOX COMMENT *PLEASE NOTE: Normal [facility] Comment on above: Result Comment: UNCO NFIRMED Toxicology results. For MEDICAL purposes only. Performed By: #### L 600.23713 #### Test performed at: [address] [address] PORTABLE CHESTon 02-10-2021 PORTABLE CHEST STUDY: PORTABLE CHEST; 02/09/2021 11:25 pm INDICATION: CHEST PAIBN. COMPARISON: 02/08/2021 ACCESSION NUMBER(S): [id number] ORDERING CLINICIAN: Gordon Wade FINDINGS: The cardiomediastinal silhouette and pulmonary vasculature are within normal limits. No consolidation, pleural effusion, or pneumothorax. IMPRESSION: No acute cardiopulmonary process. Normal [facility] TROPONIN QUANTon 02-10-2021 TROPONIN I < 0.015 Normal 0.01-0.045 [facility] Comment on above: Performed By: #### L 500.80020, L500.53925, L500.43310, L500.19391, L500.79559 #### Test performed at: [address] [address] BASIC METABOLIC PANELon 01-21 Anion gap [Moles/Vol] 12 mmol/L Normal 10 - 20 [facility] Comment on above: Performed By: #### B MP #### [address] [address] Calcium [Mass/Vol] 9.5 mg/dL Normal 8.6 - 10.3 [facility] Comment on above: Performed By: #### B MP #### [address] [address] Chloride [Moles/Vol] 103 mmol/L Normal 98 - 107 [facility] Comment on above: Performed By: #### B MP #### [address] [address] Creatinine [Mass/Vol] 0.79 mg/dL Normal 0.50 - 1.30 [facility] Comment on above: Performed By: #### B MP #### [address] [address] GFR- AM. >60 Normal >60 [facility] Comment on above: Result Comment: CALC ULATIONS OF ESTIMATED GFR ARE PERFORMED USING THE MDRD STUDY EQUATION FOR THE IDMS-TRACEABLE CREATININE METHODS. CLIN CHEM 2007;53:766-72 Performed By: #### B MP #### [address] [address] GFR-NON AM. >60 Normal >60 [facility] Comment on above: Performed By: #### B MP #### [address] [address] Glucose [Mass/Vol] 95 mg/dL Normal 74 - 99 [facility] Comment on above: Performed By: #### B MP #### [address] [address] HCO3 (Bld) [Moles/Vol] 25 mmol/L Normal 21 - 32 [facility] Comment on above: Performed By: #### B MP #### [address] [address] Potassium [Moles/Vol] 4.0 mmol/L Normal 3.5 - 5.3 [facility] Comment on above: Performed By: #### B MP #### [address] [address] Sodium [Moles/Vol] 136 mmol/L Normal 136 - 145 [facility] Comment on above: Performed By: #### B MP #### [address] [address] Urea nitrogen [Mass/Vol] 16 mg/dL Normal 6 - 23 [facility] Comment on above: Performed By: #### B MP #### [address] [address] CBC AND DIFFERENTIALon 02-08 % AUTOMATED IMMATURE GRAN 0.2 % Normal 0.0 - 0.9 [facility] Comment on above: Result Comment: Kath ture Granulocyte Count (IG) includes promyelocytes, myelocytes and metamyelocytes but does not include bands. Percent differential counts (%) should be interpreted in the context of the absolute cell counts (cells/L). Performed By: #### C BCDF #### [address] [place] [address] Basophils (Bld) [#/Vol] 0.01 10*3/uL Normal 0.00 - 0.10 [facility] Comment on above: Performed By: #### C BCDF #### [address] [place] [address] Basophils/100 WBC (Bld) 0.2 % Normal 0.0 - 2.0 [facility] Comment on above: Performed By: #### C BCDF #### [address] [address] Eosinophils (Bld) [#/Vol] 0.01 10*3/uL Normal 0.00 - 0.70 [facility] Comment on above: Performed By: #### C BCDF #### [address] [place] [address] Eosinophils/100 WBC (Bld) 0.2 % Normal 0.0 - 6.0 [facility] Comment on above: Performed By: #### C BCDF #### [address] [place] [address] Erythrocyte distribution width (RBC) [Ratio] 12.3 % Normal 11.5 - 14.5 [facility] Comment on above: Performed By: #### C BCDF #### [address] [address] Hematocrit (Bld) [Volume fraction] 42.2 % Normal 41.0 - 52.0 [facility] Comment on above: Performed By: #### C BCDF #### [address] [place] [address] Hemoglobin (Bld) [Mass/Vol] 14.1 g/dL Normal 13.5 - 17.5 [facility] Comment on above: Performed By: #### C BCDF #### [address] [place] [address] Lymphocytes (Bld) [#/Vol] 0.89 10*3/uL Low 1.20 - 4.80 [facility] Comment on above: Performed By: #### C BCDF #### [facility] [address] [place] [address] Lymphocytes/100 WBC (Bld) 18.2 % Normal 13.0 - 44.0 [facility] Comment on above: Performed By: #### C BCDF #### [facility] [address] [place] [address] MCHC (RBC) [Mass/Vol] 33.4 g/dL Normal 32.0 - 36.0 [facility] Comment on above: Performed By: #### C BCDF #### [address] [place] [address] MCV (RBC) [Entitic vol] 85 fL Normal 80 - 100 [facility] Comment on above: Performed By: #### C BCDF #### [address] [place] [address] Monocytes (Bld) [#/Vol] 0.34 10*3/uL Normal 0.10 - 1.00 [facility] [facility] Comment on above: Performed By: #### C BCDF #### [address] [place] [address] Monocytes/100 WBC (Bld) 7.0 % Normal 2.0 - 10.0 [facility] Comment on above: Performed By: #### C BCDF #### [address] [place] [address] Neutrophils (Bld) [#/Vol] 3.63 10*3/uL Normal 1.20 - 7.70 [facility] Comment on above: Performed By: #### C BCDF #### [address] [place] [address] Neutrophils/100 WBC (Bld) 74.2 % Normal 40.0 - 80.0 [facility] Comment on above: Performed By: #### C BCDF #### [facility] [address] [place], [place] [address] [address] NUCLEATED RBC 0.0 /100 WBC Normal 0.0 - 0.0 [facility] Comment on above: Performed By: #### C BCDF #### [address] [place] [address] Platelets (Bld) [#/Vol] 197 10*3/uL Normal 150 - 450 [facility] Comment on above: Performed By: #### C BCDF #### [facility] [address] [place] [address] RBC 4.98 x10E12/L Normal 4.50 - 5.90 [facility] Comment on above: Performed By: #### C BCDF #### [facility] [address] [place] [address] WBC (Bld) [#/Vol] 4.9 10*3/uL Normal 4.4 - 11.3 [facility] Comment on above: Performed By: #### C BCDF #### [facility] [address] [place] [address] CHEST 1 VIEWon 02-08-2021 CHEST 1 VIEW Patient Name: HOSEA ALVAREZ STUDY: CHEST 1 VIEW; 02/08/2021 12:45 pm INDICATION: Chest Pain. COMPARISON: 02/02/2021 ACCESSION NUMBER(S): [id number] ORDERING CLINICIAN: RASHAUN DELGADILLO TECHNIQUE: Portable upright frontal view of the chest FINDINGS: Mediastinum is negative. Cardiac silhouette is enlarged. Lungs are clear. IMPRESSION: Lungs are clear. Electronically signed by: NORMA UP MD Normal [facility] Complete Blood Count + Diffe rentialon 02-08-2021 Basophils/100 WBC (Bld) 0.2 % 0.0 - 2.0 [facility] 200 Work Phone: Erythrocyte distribution width (RBC) [Ratio] 12.3 % See Below [facility] CENTEREximSoft-TrianzlaNewslines 200 Work Phone: Comment on above: Reference Range: 11. 5 - 14.5 Hematocrit (Bld) [Volume fraction] 42.2 % See Below [facility]ENTER[facility]-TrianzlaNewslines 200 Work Phone: Comment on above: Reference Range: 41. 0 - 52.0 Hemoglobin (Bld) [Mass/Vol] 14.1 g/dL See Below [facility]ENTERExim[facility]-TrianzlaNewslines 200 Work Phone: Comment on above: Reference Range: 13. 5 - 17.5 Lymphocytes/100 WBC (Bld) 18.2 % See Below [facility] DBVuSw[facility] S[facility] 200 Work Phone: [phone] Comment on above: Reference Range: 13. 0 - 44.0 MCHC (RBC) [Mass/Vol] 33.4 g/dL See Below [facility] 200 Work Phone: Comment on above: Reference Range: 32. 0 - 36.0 MCV (RBC) [Entitic vol] 85 fL 80 - 100 [facility] 200 Work Phone: Monocytes/100 WBC (Bld) 7.0 % 2.0 - 10.0 [facility] 200 Work Phone: Neutrophils/100 WBC (Bld) 74.2 % See Below [facility] 200 Work Phone: Comment on above: Reference Range: 40. 0 - 80.0 Platelets (Bld) [#/Vol] 197 10*3/uL 150 - 450 [facility] 200 Work Phone: RBC (Bld) [#/Vol] 4.98 {x10E12/L} See Below [facility] 200 Work Phone: Comment on above: Reference Range: 4.5 0 - 5.90 WBC (Bld) [#/Vol] 4.9 10*3/uL 4.4 - 11.3 [facility]ENTERCar diology [facility] 200 Work Phone: Complete Blood Count + Differential 0.01 {x10E9/L} See Below [facility] 200 Work Phone: Comment on above: Reference Range: 0.0 0 - 0.10 Reference Range: 0.0 0 - 0.70 Complete Blood Count + Differential 0.34 {x10E9/L} See Below [facility] 200 Work Phone: Comment on above: Reference Range: 0.1 0 - 1.00 Complete Blood Count + Differential 0.89 {x10E9/L} below low threshold See Below [employer]225 Work Phone: Comment on above: Reference Range: 1.2 0 - 4.80 Complete Blood Count + Differential 3.63 {x10E9/L} See Below [facility] 200 Work Phone: Comment on above: Reference Range: 1.2 0 - 7.70 Complete Blood Count + Differential 0.2 % 0.0 - 0.9 [employer]225 Work Phone: Comment on above: Immature Granulocyte Count (IG) includes promyelocytes, myelocytes and metamyelocytes but does not include bands. Percent differential counts (%) should be interpreted in the context of the absolute cell counts (cells/L). Complete Blood Count + Differential 0.0 {/100_WBC} 0.0 - 0.0 [employer]225 Work Phone: Discharge Planning Mssk1cz 0 02-08-2021 Discharge Planning Note2 Discharge Planning: Discharge DestinationHome Anticipated Discharge [id number] Discharge Planning 02/08/2021 @ 1115 Social Work [...] follow up to provide pt with resources. DAVID met with pt. Pt presented as agitated, [...] that he is usually a resident of [place], however, has recently moved to [place] and would like to work on having both [place] and [place] Medicaid. SW asked where pt [...] I am entitled to be assigned a spring encaser to help me with whatever I need [...] has a right to be admitted to [facility] for further testing. SW offered assistance in pursuing follow up appointments for pt, pt declined same, becoming increasingly upset and belligerent. SW excused self from room, updated staff of conversation. SW to follow as needed. MATEO Khan, LOCK OPERATOR Assessment: Discharge Planning Assessment [id number] Electronic Signatures: Sugey Hutson (STONE) (Signed 08-Feb-2021 15:13) Authored: Discharge Planning, Assessment Last Updated: 08-Feb-2021 15:13 by Sugey Hutson ([facility]) Normal [facility] Laboratory - Chemistry and C hemistry - challengeon 02-08-2021 Anion gap [Moles/Vol] 12 mmol/L 10 - 20 MP- Cardiology -[place] [facility] 200 Work Phone: Calcium [Mass/Vol] 9.5 mg/dL 8.6 - 10.3 MP-Car diology -[place] [facility] 200 Work Phone: Chloride [Moles/Vol] 103 mmol/L 98 - 107 MP-C ardiology -[place] [facility] 200 Work Phone: [phone] CO2 [Moles/Vol] 25 mmol/L 21 - 32 MP-Cardio logy -[place] 200 Work Phone: [phone] Creatinine [Mass/Vol] 0.79 mg/dL See Below - Cardiology -[place] [facility] 200 Work Phone: Comment on above: Reference Range: 0.5 0 - 1.30 Glucose [Mass/Vol] 95 mg/dL 74 - 99 -Car [employer] GroupRushmore.fm -[place] 200 Work Phone: [phone] Potassium [Moles/Vol] 4.0 mmol/L 3.5 - 5.3 - Cardiology -[place] 200 Work Phone: Sodium [Moles/Vol] 136 mmol/L 136 - 145 -[employer] GroupRushmore.fm -[place] 200 Work Phone: Urea nitrogen [Mass/Vol] 16 mg/dL 6 - 23 [facility] 200 Work Phone: No Panel Informationon 02-08 >60 >60 [employer] -[place] [facility] 200 Work Phone: Comment on above: CALCULATIONS OF NIKOLE MATED GFR ARE PERFORMED USING THE MDRD STUDY EQUATION FOR THE IDMS-TRACEABLE CREATININE METHODS. CLIN CHEM 2007;53:766-72 [email or web address] 1:80 80/musescripts/museweb.d ll?RetrieveTestByDateTim e?NvqdcnrII=[id number]&Da te=08-02-2021&Time=11%3a 45%3a50%3a00&TestType=EC G&Site=10&OutputType=PDF &Ext=PDF -Cardiology -[place] 200 Work Phone: [phone] Sinus rhythm -Cardiolog y -[facility] 200 Work Phone: [phone] Normal -Cardiology -[place] 200 Work Phone: [phone] -[employer] 200 Work Phone: [phone] -[employer] 200 Work Phone: [phone] 1 MP-Cardiology -[place] [facility] 200 Work Phone: [phone] 1 MP-Cardiology -[place] [facility] 200 Work Phone: [phone] 1 MP-Cardiology -[place] [facility] 200 Work Phone: [phone] MP-Cardiology -[place] [facility] 200 Work Phone: [phone] MP-Cardiology -[place] [facility] 200 Work Phone: [phone] MP-Cardiology -[place] [facility] 200 Work Phone: [phone] MP-Cardiology -[place] [facility] 200 Work Phone: [phone] 1 MP-Cardiology -[place] [facility] 200 Work Phone: [phone] MP-Cardiology -[place] [facility] 200 Work Phone: [phone] MP-Cardiology -[place] [facility] 200 Work Phone: [phone] Provider Note - ED v2on 05- [...] gets anxious he is normally lives in [place] but he is in the area working [...] a d (more content not included)... Normal [facility] Provider Note - ED v2 Provider Note [...] them. He reports he was at the [facility] yesterday evening and was diagnosed with reflux. Patient states he is out of state resident and has physicians to manage his aortic aneurysm and other issues in [place]. He states he has gone to multiple [...] orally onc (more content not included)... Normal [facility] Radiologyon 02-08-2021 XR Chest Single view Normal MP-C ardiology -[place] [facility] 200 Work Phone: Risk Screen - Adult Emergenc yon 02-08-2021 Risk Screen - Adult Emergency Preferred Language: Preferred Language: Preferred Language for Discussing Health Care (patient/designee)Fran carver Advanced Directives: Advance Directive/DNRyes Advance Directive typeDurable Power of Engineering Surveyor for Healthcare Durable Power of Engineering Surveyor AvailabilityDPOA not available now Family Violence Adult: Abuse Screen: Are you or have you been threatened or abused physically, emotionally, or sexually by anyoneno Learning Assessment (Patient): Learning Assessment (Patient): Patient is Able to be Assessed for Learningyes Factors Influencing Readiness to Learnnone Factors that Impact Ability to Learnnone Devices/Methods Used to Communicatenone Learning Preferencesverbal instruction; written material Cultural Considerationsnone Developmental Considerationsnone Mandaeism Considerationsnone Learning Assessment (Other Learner): Learning Assessment (Other Learner): Other learner availableno Pressure Injury/TB/Substance: Pressure Injury: Pressure Injury Present on Admissionno Do you have a coughno Substance Use Current or Former Historynever: Cigarette/Tobacco, e-Cigarette/Vaping, Street Drugs YES: Alcohol Alcohol Usedaily Alcohol Use Additional Comments1 beer Admission Risk Screen: Significant IndicatorsComplete CAGE: CAGE: Is this an injured patient at a Trauma Center ([place] [facility] [place]/[place] no Electronic Signatures: Irma Dias (BROOK[place]NN) (Signed 08-Feb-2021 12:14) Authored: Preferred Language, Advanced Directives, Family Violence Adult, Learning Assessment (Patient), Learning Assessment (Other Learner), Pressure Injury/TB/Substance, Pressure Injury, CAGE Last Updated: 08-Feb-2021 12:14 by Irma Dias (BROOKLYNN) Normal [facility] TROPONIN Ion 02-08-2021 Troponin I.cardiac [Mass/Vol] ng/mL Normal 0.00 - 0.03 [facility] Comment on above: Result Comment: LESS [...] is performed using different testing methodology at [facility] than at other [facility]. Direct result comparisons should only be made within the same method. Performed By: #### T ROP2 #### [facility] [address] [place] [address] Triage - EDon 02-08-2021 Triage - ED Chart Review: ARRIVAL INFORMATION Mode of Arrival: ambulance Agency: City Agency Name: [facility] CHIEF COMPLAINT HOSEA ALVAREZ is a Male patient with a chief complaint of abdominal pain. Triage Date/Time: 08-Feb-2021 08:00 WILMAN: 3 Pain Rating (0-10): 7 = Severe Vital Signs: Temperature: 97.8F ( 36.6C) Blood Pressure: 133/98 Mean: Heart Rate: 84 Respiratory Rate: 18 Pulse Oximetry: 99% on room air, no respiratory support. Weight: 182.9 pounds. Calculated 83.0 kg. Lynda Coma Scale: Best Eye Response: (E4) spontaneous Best Motor Response: (M6) obeys commands Best Verbal Response: (V5) oriented Trona Score: 15 Cough lasting greater than 3 [...] Medical History Reviewedyes Electronic Signatures: Nessa Romero (RN) (Signed 08-Feb-2021 08:03) Authored: Quick Triage, Risk Screens, Pain, Chart Review, Scores, Past Medical History Last Updated: 08-Feb-2021 08:03 by Nessa Romero (BROOKLYNN) Normal [facility] Troponin I, Serumon 02-09-20 21 Troponin I.cardiac [Mass/Vol] ng/mL See Below -Cardiology -[place] 200 Work Phone: Comment on above: [...] is performed using different testing methodology at [facility] than at other [facility]. Direct result comparisons should only be made within the same method. JANENE TITER/EARL PANELon 2020 ANTI-CENTROMERE <0.2 Normal [facility] Comment on above: Result Comment: REF VALUES < 1.0 = NEGATIVE >=1.0 = POSITIVE Performed By: #### E NAP2 ####[id number] [place] [address] ANTI-CHROMATIN 0.5 AI Normal [facility] Comment on above: Result Comment: REF VALUES < 1.0 = NEGATIVE >=1.0 = POSITIVE Performed By: #### E NAP2 ####[id number] [place] [address] ANTI-DNA [DS] 1.0 IU/mL Normal [facility] Comment on above: Result Comment: REF VALUES NEGATIVE: <= 4 IU/ML EQUIVOCAL: 5- 9 IU/ML POSITIVE: >=10 IU/ML Performed By: #### E NAP2 ####[id number] [place] [address] ANTI-SHIVANI-1 <0.2 Normal [facility] Comment on above: Result Comment: REF VALUES < 1.0 = NEGATIVE >=1.0 = POSITIVE Performed By: #### E NAP2 ####[id number] [place] [address] ANTI-RIBOSOMAL P <0.2 Normal [facility] Comment on above: Result Comment: REF VALUES < 1.0 = NEGATIVE >=1.0 = POSITIVE Performed By: #### E NAP2 ####[id number] [place] [address] ANTI-MANAGER HIV <0.2 Normal [facility] Comment on above: Result Comment: REF VALUES < 1.0 = NEGATIVE >=1.0 = POSITIVE Performed By: #### E NAP2 ####[id number] [place] [address] ANTI-SCL-70 <0.2 Normal [facility] Comment on above: Result Comment: REF VALUES < 1.0 = NEGATIVE >=1.0 = POSITIVE Performed By: #### E NAP2 ####[id number] [place] [address] ANTI-SM <0.2 Normal [facility] Comment on above: Result Comment: REF VALUES < 1.0 = NEGATIVE >=1.0 = POSITIVE Performed By: #### E NAP2 ####[id number] [place] [address] ANTI-SM/MANAGER HIV <0.2 Normal [facility] Comment on above: Result Comment: REF VALUES < 1.0 = NEGATIVE >=1.0 = POSITIVE Performed By: #### E NAP2 ####[id number] [place] [address] ANTI-SSA <0.2 Normal [facility] Comment on above: Result Comment: REF VALUES < 1.0 = NEGATIVE >=1.0 = POSITIVE Performed By: #### E NAP2 ####[id number] [place] [address] ANTI-SSB <0.2 Normal [facility] Comment on above: Result Comment: REF VALUES < 1.0 = NEGATIVE >=1.0 = POSITIVE Performed By: #### E NAP2 ####[id number] [place] [address] JANENE PATTERN SPECKLED Normal [facility] Comment on above: Performed By: #### E NAP2 ####[id number] [address] JANENE TITER 1:40 Normal [facility] Comment on above: Performed By: #### E NAP2 ####[id number] [place] [address] JANENE-WITH REFLEX TO ENAon JANENE WITH REFLEX TO EARL Positive Invalid Interpretation Code NEGATIVE [facility] Comment on above: Result Comment: The Antinuclear Antibody (JANENE) test was performed using indirect immunofluorescence assay with HEp-2 cells slide. Performed By: #### A NA2 ####[id number] [place] [address] C Reactive Protein, Serumon 02-05-2021 CRP [Mass/Vol] 0.13 mg/dL -Cardiol [facility] -NanteroW 200 Work Phone: Comment on above: REF VALUE< 1.00 Complete Blood Count + Diffe rentialon 02-05-2021 Erythrocyte distribution width (RBC) [Ratio] 12.5 % See Below -Cardiology -NanteroW 200 Work Phone: Comment on above: Reference Range: 11. 5 - 14.5 Hematocrit (Bld) [Volume fraction] 38.4 % below low threshold See Below -Cardiology -[place] [facility] 200 Work Phone: Comment on above: Reference Range: 41. 0 - 52.0 Hemoglobin (Bld) [Mass/Vol] 12.9 g/dL below low threshold See Below [facility] -[place] [facility] 200 Work Phone: Comment on above: Reference Range: 13. 5 - 17.5 Lymphocytes/100 WBC (Bld) 7.8 % See Below [facility] 200 Work Phone: Comment on above: Reference Range: 13. 0 - 44.0 MCHC (RBC) [Mass/Vol] 33.6 g/dL See Below [facility] 200 Work Phone: Comment on above: Reference Range: 32. 0 - 36.0 MCV (RBC) [Entitic vol] 84 fL 80 - 100 [facility] 200 Work Phone: Monocytes/100 WBC (Bld) 2.1 % 2.0 - 10.0 [facility] 200 Work Phone: Neutrophils/100 WBC (Bld) 89.8 % See Below [facility] 200 Work Phone: Comment on above: Reference Range: 40. 0 - 80.0 Platelets (Bld) [#/Vol] 188 10*3/uL 150 - 450 [facility] 200 Work Phone: RBC (Bld) [#/Vol] 4.59 {x10E12/L} See Below [facility] 200 Work Phone: Comment on above: Reference Range: 4.5 0 - 5.90 WBC (Bld) [#/Vol] 6.8 10*3/uL 4.4 - 11.3 -Car diology -[facility] 200 Work Phone: Complete Blood Count + Differential 0.14 {x10E9/L} See Below [facility] 200 Work Phone: Comment on above: Reference Range: 0.1 0 - 1.00 Complete Blood Count + Differential 0.53 {x10E9/L} below low threshold See Below [facility] 200 Work Phone: Comment on above: Reference Range: 1.2 0 - 4.80 Complete Blood Count + Differential 6.10 {x10E9/L} See Below [place] [address] Work Phone: Comment on above: Reference Range: 1.2 0 - 7.70 Complete Blood Count + Differential 0.3 % 0.0 - 0.9 [place] [address] Work Phone: Comment on above: Immature Granulocyte Count (IG) includes promyelocytes, myelocytes and metamyelocytes but does not include bands. Percent differential counts (%) should be interpreted in the context of the absolute cell counts (cells/L). Laboratory - Chemistry and C hemistry - challengeon 02-05-2021 Albumin BCP dye [Mass/Vol] 4.6 g/dL 3.4 - 5.0 [place] [address] Work Phone: ALP [Catalytic activity/Vol] 45 U/L 33 - 120 [place] [address] Work Phone: ALT With P-5'-P [Catalytic activity/Vol] 14 U/L 10 - 52 [place] [address] Work Phone: Comment on above: Patients treated wit h Sulfasalazine may generate falsely decreased results for ALT. Anion gap [Moles/Vol] 13 mmol/L 10 - 20 [place] [address] Work Phone: AST With P-5'-P [Catalytic activity/Vol] 14 U/L 9 - 39 [place] [address] Work Phone: Bilirubin [Mass/Vol] 0.4 mg/dL 0.0 - 1.2 -C ardiology -[facility] [place] 200 Work Phone: Calcium [Mass/Vol] 9.8 mg/dL 8.6 - 10.3 -Car diology [facility] 200 Work Phone: Chloride [Moles/Vol] 104 mmol/L 98 - 107 -C ardiology -[place] [facility] 200 Work Phone: CO2 [Moles/Vol] 27 mmol/L 21 - 32 MP-Cardio logy -[place] [facility] 200 Work Phone: Creatinine [Mass/Vol] 0.90 mg/dL See Below [facility] Cardiology -[place] [facility] 200 Work Phone: [phone] Comment on above: Reference Range: 0.5 0 - 1.30 Glucose [Mass/Vol] 135 mg/dL above high threshold 74 - 99 -Cardiology -[place] [facility] 200 Work Phone: [phone] Potassium [Moles/Vol] 4.1 mmol/L 3.5 - 5.3 [facility] Cardiology -[place] [facility] 200 Work Phone: [phone] Protein [Mass/Vol] 7.5 g/dL 6.4 - 8.2 -[facility] Fl[facility]alking 200 Work Phone: [phone] Sodium [Moles/Vol] 140 mmol/L 136 - 145 -Car diology -[facility] [place] 200 Work Phone: [phone] Urea nitrogen [Mass/Vol] 15 mg/dL 6 - 23 -Cardiology -[facility] [place] 200 Work Phone: [phone] No Panel Informationon 02-05 >60 >60 [facility] Fl[facility]alking 200 Work Phone: Comment on above: CALCULATIONS OF NIKOLE MATED GFR ARE PERFORMED USING THE MDRD STUDY EQUATION FOR THE IDMS-TRACEABLE CREATININE METHODS. CLIN CHEM 2007;53:766-72 Sedimentation Rate, Erythroc yteon 02-05-2021 ESR (Bld) [Velocity] 22 mm/h above high threshold 0 - 10 [facility] [place] 200 Work Phone: CORONAVIRUS 2019 BY PCRon SARS-CoV-2 (COVID-19) RNA TATI+probe Ql (Unsp spec) Not detected Normal Not Detected [facility] Comment on above: Result Comment: . This assay is designed to detect the RdRp gene of SARS-CoV-2 via nucleic acid amplification. A Not Detected result does not preclude COVID-19 infection since the adequacy of sample collection and/or low viral burden may result in presence of viral nucleic acids below the clinical sensitivity of this test method. Fact sheet for providers: www.fda.gov/media/881173/download Fact sheet for patients: www.fda.gov/media/492516/download This test has received FDA Emergency Use Authorization (EUA) and has been verified by [facility] ([facility]). This test is only authorized for the duration of time that circumstances exist to justify the authorization of the emergency use of in vitro diagnostic tests for the detection of SARS-CoV-2 virus and/or diagnosis of COVID-19 infection under section 564(b)(1) of the Act, 21 U.S.C. 360bbb-3(b)(1), unless the authorization is terminated or revoked sooner. [facility] is certified under CLIA-88 as qualified to perform high complexity testing. Testing is performed in the [facility] laboratories located at [address] [place] [address]. Performed By: #### C OV19 ####[facility] [id number] [place] [address] CT Head without Contraston 0 02-03-2021 CT Head limited WO contrast Normal [facility] 200 Work Phone: Covid 19 Resultson 1 SARS-CoV-2 (COVID-19) RNA [...] You may also be contacted by the [facility] to see if any of [...] or Naproxen (Aleve) can also be used. Tpts-xlz-necmjud cough and cold medicines can be used according to the instructions on the package. Some xzts-esp-rgppblh medicines also contain acetaminophen. 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 Avoid touching your eyes, nose, and mouth [...] 24 guerline (more content not included)... Normal [facility] Laboratory - Serology - non- microon 02-03-2021 Centromere protein B Ab Qn (S) <0.2 [facility] 200 Work Phone: Comment on above: REF VALUES < 1.0 = N EGATIVE >=1.0 = POSITIVE Chromatin Ab Qn 0.5 {AI} [employer] 200 Work Phone: Comment on above: REF VALUES < 1.0 = N EGATIVE >=1.0 = POSITIVE DNA double strand Ab Qn (S) 1.0 [IU]/mL [employer] 200 Work Phone: [phone] Comment on above: REF VALUESNEGATIVE: <= 4 IU/MLEQUIVOCAL: 5- 9 IU/MLPOSITIVE: >=10 IU/ML Shivani-1 extractable nuclear Ab IA Ql (S) <0.2 [facility] 200 Work Phone: [phone] Comment on above: REF VALUES < 1.0 = N EGATIVE >=1.0 = POSITIVE Nuclear Ab Hep2 substrate Ql (S) Positive Abnormal NEGATIVE [facility] Work Phone: [phone] Comment on above: The Antinuclear Anti body (JANENE) test was performed using indirect immunofluorescence assay with HEp-2 cells slide. Nuclear Ab IF (S) [Titer] 1:40 [employer] Work Phone: [phone] Nuclear Ab pattern (S) [Interp] SPECKLED [facility] Work Phone: [phone] Ribonucleoprotein extractable nuclear Ab IA Qn (S) <0.2 [place] [facility] 200 Work Phone: [phone] Comment on above: REF VALUES < 1.0 = N EGATIVE >=1.0 = POSITIVE Ribosomal P Ab Qn (S) <0.2 [employer] 200 Work Phone: [phone] Comment on above: REF VALUES < 1.0 = N EGATIVE >=1.0 = POSITIVE SCL-70 extractable nuclear Ab IA Ql (S) <0.2 [facility] Fl[facility]alking 200 Work Phone: Comment on above: REF VALUES < 1.0 = N EGATIVE >=1.0 = POSITIVE Sjogrens syndrome-A extractable nuclear Ab IA Qn (S) <0.2 [employer] 200 Work Phone: Comment on above: REF VALUES < 1.0 = N EGATIVE >=1.0 = POSITIVE Sjogrens syndrome-B extractable nuclear Ab IA Qn (S) <0.2 [facility] [facility] 200 Work Phone: Comment on above: REF VALUES < 1.0 = N EGATIVE >=1.0 = POSITIVE [place] extractable nuclear Ab IA Qn (S) <0.2 [facility] -[place] [facility] 200 Work Phone: Comment on above: REF VALUES < 1.0 = N EGATIVE >=1.0 = POSITIVE [place] extractable nuclear Ab+Ribonucleoprotein extractable nuclear Ab IA Ql (S) <0.2 [facility] [facility] 200 Work Phone: Comment on above: REF VALUES < 1.0 = N EGATIVE >=1.0 = POSITIVE No Panel Informationon 02-03 [email or web address]?RetrieveTestByDateTim e?[id number]&Da te=03-02-2021&Time=05%3a 07%3a18%3a00&TestType=EC G&Site=2&OutputType=PDF& Ext=PDF [facility] [facility] 200 Work Phone: [phone] Sinus bradycardia [facility] -[place] [facility] 200 Work Phone: [phone] Borderline Abnormal MP-Ca rdiology -[place] [facility] 200 Work Phone: [phone] [facility] [facility] 200 Work Phone: [phone] [facility] [facility] 200 Work Phone: [phone] [facility] [facility] 200 Work Phone: [phone] [facility] [facility] 200 Work Phone: [phone] [facility] [facility] 200 Work Phone: [phone] [facility] [facility] 200 Work Phone: [phone] [facility] [facility] 200 Work Phone: [phone] 1 [facility] [facility] 200 Work Phone: [phone] 1 [facility] [facility] 200 Work Phone: [phone] [facility] [facility] 200 Work Phone: [phone] [facility] [facility] 200 Work Phone: [phone] 1 [facility] [facility] 200 Work Phone: [phone] [facility] [facility] 200 Work Phone: [phone] 1 [facility] [facility] 200 Work Phone: Please click on the link to view the study images Normal [facility] [facility] 200 Work Phone: [email or web address]?RetrieveTestByDateTim e?WptzyrvAQ=[id number]&Da te=03-02-2021&Time=02%3a 56%3a24%3a00&TestType=EC G&Site=2&OutputType=PDF& Ext=PDF [facility] [facility] 200 Work Phone: Please see ED Provid er Note for formal interpretation [facility] [facility] 200 Work Phone: Normal [facility] [facility] 200 Work Phone: [phone] [facility] [facility] 200 Work Phone: [phone] [facility] [facility] 200 Work Phone: [phone] [facility] [facility] 200 Work Phone: [phone] 1 [facility] [facility] 200 Work Phone: [phone] [facility] [facility] 200 Work Phone: 12 1 [facility] [facility] 200 Work Phone: -[phone] 1 [facility] [facility] 200 Work Phone: [phone] [facility] [facility] 200 Work Phone: [phone] 1 [facility] [facility] 200 Work Phone: [phone] [facility] [facility] 200 Work Phone: [phone] [facility] [facility] 200 Work Phone: 96 1 [facility] [facility] 200 Work Phone: [phone] 1 [facility] [facility] 200 Work Phone: [phone] [facility] [facility] 200 Work Phone: [phone] Provider Note - ED v2on 05- [...] 50 mg (more content not included)... Normal [facility] Provider Note - ED v2 Provider Note [...] of hard stool. He was seen at [facility] earlier today. Denied previous CAD, hyperlipidemia, [...] states that he was seen at the [facility] and was diagnosed with a thoracic [...] Erythromycin Base (more content not included)... Normal [facility] TH CT ANGIO CHESTon 02-04-20 CT ANGIO CHEST STUDY: CT Angiogram of the Chest; 02/02/2021 at 10:30 PM INDICATION: Chest pain, back pain. 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 COMPARISON: CTA chest 01/29/21. XR chest 02/02/21, 02/01/21. ACCESSION NUMBER(S): [id number] ORDERING CLINICIAN: ALBINA LOPEZ PA-C TECHNIQUE: CTA [...] signed by: KAY RODRÍGUEZ MD, PHD Normal [facility] TROPONIN Ion 02-03-2021 Troponin I.cardiac [Mass/Vol] ng/mL Normal 0.00 - 0.03 [facility] Comment on above: Result Comment: LESS [...] is performed using different testing methodology at [facility] than at other [facility]. Direct result comparisons should only be made within the same method. Performed By: #### T ROP2 ####[facility] [id number] [place] [address] Triage - EDon 02-03-2021 Triage - ED [...] From Triage - ED 02-Feb-2021 19:26 Normal [facility] CBC AND DIFFERENTIALon 02-02 % AUTOMATED IMMATURE GRAN 0.3 % Normal 0.0 - 0.9 [facility] Comment on above: Result Comment: Kath ture Granulocyte Count (IG) includes promyelocytes, myelocytes and metamyelocytes but does not include bands. Percent differential counts (%) should be interpreted in the context of the absolute cell counts (cells/L). Performed By: #### C BCDF ####[facility] [id number] [place] [address] Basophils (Bld) [#/Vol] 0.02 10*3/uL Normal 0.00 - 0.10 [facility] Comment on above: Performed By: #### C BCDF ####[facility] [id number] [place] [address] Basophils/100 WBC (Bld) 0.7 % Normal 0.0 - 2.0 [facility] Comment on above: Performed By: #### C BCDF ####[facility] [id number] [place] [address] Eosinophils (Bld) [#/Vol] 0.06 10*3/uL Normal 0.00 - 0.70 [facility] Comment on above: Performed By: #### C BCDF ####[facility] [id number] [place] [address] Eosinophils/100 WBC (Bld) 2.0 % Normal 0.0 - 6.0 [facility] Comment on above: Performed By: #### C BCDF ####[facility] [id number] [place] [address] Erythrocyte distribution width (RBC) [Ratio] 12.4 % Normal 11.5 - 14.5 [facility] Comment on above: Performed By: #### C BCDF ####[facility] [id number] [place] [address] Hematocrit (Bld) [Volume fraction] 39.2 % Low 41.0 - 52.0 [facility] Comment on above: Performed By: #### C BCDF ####[facility] [id number] [place] [address] Hemoglobin (Bld) [Mass/Vol] 13.0 g/dL Low 13.5 - 17.5 [facility] Comment on above: Performed By: #### C BCDF ####[facility] [place] [address] Lymphocytes (Bld) [#/Vol] 1.06 10*3/uL Low 1.20 - 4.80 [facility] Comment on above: Performed By: #### C BCDF ####[facility] [place] [address] Lymphocytes/100 WBC (Bld) 35.7 % Normal 13.0 - 44.0 [facility] Comment on above: Performed By: #### C BCDF ####[facility] [place] [address] MCHC (RBC) [Mass/Vol] 33.2 g/dL Normal 32.0 - 36.0 [facility] Comment on above: Performed By: #### C BCDF ####[facility] [place] [address] MCV (RBC) [Entitic vol] 85 fL Normal 80 - 100 [facility] Comment on above: Performed By: #### C BCDF ####[facility] [place] [address] Monocytes (Bld) [#/Vol] 0.31 10*3/uL Normal 0.10 - 1.00 [facility] Comment on above: Performed By: #### C BCDF ####[facility] [place] [address] Monocytes/100 WBC (Bld) 10.4 % Normal 2.0 - 10.0 [facility] Comment on above: Performed By: #### C BCDF ####[facility] [id number] [place] [address] Neutrophils (Bld) [#/Vol] 1.51 10*3/uL Normal 1.20 - 7.70 [facility] Comment on above: Performed By: #### C BCDF ####[facility] [id number] [place] [address] Neutrophils/100 WBC (Bld) 50.9 % Normal 40.0 - 80.0 [facility] Comment on above: Performed By: #### C BCDF ####[facility] [id number] [place] [address] Platelets (Bld) [#/Vol] 173 10*3/uL Normal 150 - 450 [facility] Comment on above: Performed By: #### C BCDF ####[facility] [id number] [place] [address] RBC 4.62 x10E12/L Normal 4.50 - 5.90 [facility] Comment on above: Performed By: #### C BCDF ####[facility] [id number] [place] [address] WBC (Bld) [#/Vol] 3.0 10*3/uL Low 4.4 - 11.3 [facility] Comment on above: Performed By: #### C BCDF ####[facility] [id number] [place] [address] CHEST 1 VIEWon 02-02-2021 CHEST 1 VIEW STUDY: Chest Radiograph; 02/02/2021, 9:14 PM INDICATION: Chest pain. COMPARISON: CXR 02/01/2021. ACCESSION NUMBER(S): [id number] ORDERING CLINICIAN: ALBINA LOPEZ PA-C TECHNIQUE: Frontal chest was obtained at 21:14 hours. FINDINGS: CARDIOMEDIASTINAL SILHOUETTE: Cardiomediastinal silhouette is normal in size and configuration. LUNGS: Lungs are clear. ABDOMEN: No remarkable upper abdominal findings. BONES: No acute osseous changes. IMPRESSION: Clear lungs. Normal heart size. No significant change. Signed by Polly Collazo MD Electronically signed by: POLLY COLLAZO MD Normal [facility] COMPREHENSIVE PANELon 2020 Albumin [Mass/Vol] 4.2 g/dL Normal 3.4 - 5.0 [facility] Comment on above: Performed By: #### C MP ####[facility] [id number] [place] [address] ALP [Catalytic activity/Vol] 48 U/L Normal 33 - 120 [facility] Comment on above: Performed By: #### C MP ####[facility] [id number] [place] [address] ALT [Catalytic activity/Vol] 15 U/L Normal 10 - 52 [facility] Comment on above: Result Comment: Yanni ents treated with Sulfasalazine may generate falsely decreased results for ALT. Performed By: #### C MP ####[facility] [id number] [place] [address] Anion gap [Moles/Vol] 13 mmol/L Normal 10 - 20 [facility] Comment on above: Performed By: #### C MP ####[facility] [id number] [place] [address] AST [Catalytic activity/Vol] 15 U/L Normal 9 - 39 [facility] Comment on above: Performed By: #### C MP ####[facility] [id number] [place] [address] Bilirubin [Mass/Vol] 0.5 mg/dL Normal 0.0 - 1.2 [facility] Comment on above: Performed By: #### C MP ####[facility] [id number] [place] [address] Calcium [Mass/Vol] 9.1 mg/dL Normal 8.6 - 10.3 [facility] Comment on above: Performed By: #### C MP ####[facility] [id number] [place] [address] Chloride [Moles/Vol] 103 mmol/L Normal 98 - 107 [facility] Comment on above: Performed By: #### C MP ####[facility] [id number] [place] [address] Creatinine [Mass/Vol] 0.85 mg/dL Normal 0.50 - 1.30 [facility] Comment on above: Performed By: #### C MP ####[facility] [id number] [place] [address] GFR- AM. >60 Normal >60 [facility] Comment on above: Result Comment: CALC ULATIONS OF ESTIMATED GFR ARE PERFORMED USING THE MDRD STUDY EQUATION FOR THE IDMS-TRACEABLE CREATININE METHODS. CLIN CHEM 2007;53:766-72 Performed By: #### C MP ####[facility] [id number] [place] [address] GFR-NON AM. >60 Normal >60 [facility] Comment on above: Performed By: #### C MP ####[facility] [id number] [place] [address] Glucose [Mass/Vol] 95 mg/dL Normal 74 - 99 [facility] Comment on above: Performed By: #### C MP ####[facility] [id number] [place] [address] HCO3 (Bld) [Moles/Vol] 26 mmol/L Normal 21 - 32 [facility] Comment on above: Performed By: #### C MP ####[facility] [id number] [place] [address] Potassium [Moles/Vol] 3.6 mmol/L Normal 3.5 - 5.3 [facility] Comment on above: Performed By: #### C MP ####[facility] [id number] [place] [address] Protein [Mass/Vol] 6.7 g/dL Normal 6.4 - 8.2 [facility] Comment on above: Performed By: #### C MP ####[facility] [id number] [place] [address] Sodium [Moles/Vol] 138 mmol/L Normal 136 - 145 [facility] Comment on above: Performed By: #### C MP ####[facility] [id number] [place] [address] Urea nitrogen [Mass/Vol] 10 mg/dL Normal - [facility] Comment on above: Performed By: #### C MP ####[facility] [id number] [place] [address] CORONAVIRUS 2019 BY PCRon DATE OF SYMPTOM ONSET [YYYYMMDD]? 20210202 Normal [facility] Comment on above: Performed By: #### C OV19 ####[facility] [id number] [place] [address] Lab Specimen Source Nasal, Nasopharyngeal Normal [facility] Comment on above: Performed By: #### C OV19 ####[facility] [id number] [place] [address] CT Angio Cheston 02-02-2021 CTA Chest vessels Normal [facility] hospital[facility] 200 Work Phone: Complete Blood Count + Diffe rentialon 02-02-2021 Basophils/100 WBC (Bld) 0.7 % 0.0 - 2.0 [facility] 200 Work Phone: Erythrocyte distribution width (RBC) [Ratio] 12.4 % See Below [facility] 200 Work Phone: Comment on above: Reference Range: 11. 5 - 14.5 Hematocrit (Bld) [Volume fraction] 39.2 % below low threshold See Below [facility] Work Phone: Comment on above: Reference Range: 41. 0 - 52.0 Hemoglobin (Bld) [Mass/Vol] 13.0 g/dL below low threshold See Below [facility] 200 Work Phone: Comment on above: Reference Range: 13. 5 - 17.5 Lymphocytes/100 WBC (Bld) 35.7 % See Below [facility] 200 Work Phone: Comment on above: Reference Range: 13. 0 - 44.0 MCHC (RBC) [Mass/Vol] 33.2 g/dL See Below [facility] [place] [facility] Work Phone: Comment on above: Reference Range: 32. 0 - 36.0 MCV (RBC) [Entitic vol] 85 fL 80 - 100 [facility]Menu[facility] 200 Work Phone: Monocytes/100 WBC (Bld) 10.4 % 2.0 - 10.0 [facility] [place] 200 Work Phone: Neutrophils/100 WBC (Bld) 50.9 % See Below [facility] 200 Work Phone: Comment on above: Reference Range: 40. 0 - 80.0 Platelets (Bld) [#/Vol] 173 10*3/uL 150 - 450 [facility] [place] 200 Work Phone: RBC (Bld) [#/Vol] 4.62 {x10E12/L} See Below [facility]Menu[facility] 200 Work Phone: Comment on above: Reference Range: 4.5 0 - 5.90 WBC (Bld) [#/Vol] 3.0 10*3/uL below low threshold 4.4 - 11.3 [facility] 200 Work Phone: Complete Blood Count + Differential 0.02 {x10E9/L} See Below [facility]Menu[facility] 200 Work Phone: Comment on above: Reference Range: 0.0 0 - 0.10 Complete Blood Count + Differential 0.06 {x10E9/L} See Below [facility]Menu[facility] 200 Work Phone: Comment on above: Reference Range: 0.0 0 - 0.70 Complete Blood Count + Differential 0.31 {x10E9/L} See Below [facility] [place] 200 Work Phone: Comment on above: Reference Range: 0.1 0 - 1.00 Complete Blood Count + Differential 1.06 {x10E9/L} below low threshold See Below [place] [address] Work Phone: Comment on above: Reference Range: 1.2 0 - 4.80 Complete Blood Count + Differential 1.51 {x10E9/L} See Below [facility] 200 Work Phone: Comment on above: Reference Range: 1.2 0 - 7.70 Complete Blood Count + Differential 2.0 % 0.0 - 6.0 [facility] 200 Work Phone: Complete Blood Count + Differential 0.3 % 0.0 - 0.9 [place] [address] Work Phone: Comment on above: Immature Granulocyte Count (IG) includes promyelocytes, myelocytes and metamyelocytes but does not include bands. Percent differential counts (%) should be interpreted in the context of the absolute cell counts (cells/L). Coronavirus 2019 RNA by PCR, Symptomaticon 02-02-2021 Date and time of symptom onset 20210202 1 [facility] [employer] Work Phone: Coronavirus 2019 RNA by PCR, Symptomatic Not detected Normal See Below [facility] [employer] Work Phone: Comment on above: SOURCE: Nasal, [...] this test method. Fact sheet for providers: www.fda.gov/media/384513/downloadFact sheet for patients: www.fda.gov/media/170856/downloadThis test has received FDA Emergency Use Authorization (EUA) and has been verified by [facility] ([facility]). This test is only authorized for the duration of time that circumstances exist to justify the authorization of the emergency use of in vitro diagnostic tests for the detection of SARS-CoV-2 virus and/or diagnosis of COVID-19 infection under section 564(b)(1) of the Act, 21 U.S.C. 360bbb-3(b)(1), unless the authorization is terminated or revoked sooner. [facility] is certified under CLIA-88 as qualified to perform high complexity testing. Testing is performed in the [facility] laboratories located at [address] [place] [address]. EMR ADDONon 02-02-2021 ADDON CONFIRMATION Canceled Normal [facility] Comment on above: Order Comment: TEST EMR ADDON WAS CANCELLED, 02/02/2021 21:41 Testing already performed.. Performed By: #### E MRAD ####[facility] [id number] [place] [id number] LIPASEon 02-02-2021 Lipase [Catalytic activity/Vol] 16 U/L Normal 9 - 82 [facility] Comment on above: Result Comment: Jocelyn puncture immediately after or during the administration of Metamizole may lead to falsely low results. Testing should be performed immediately prior to Metamizole dosing. F-hyohnn-l-benzoquinone imine (metabolite of Acetaminophen) will generate erroneously low results in samples for patients that have taken toxic doses of acetaminophen. Performed By: #### L IPAS ####[facility] [id number] [place] [id number] Laboratory - Chemistry and C hemistry - challengeon 02-02-2021 Albumin BCP dye [Mass/Vol] 4.2 g/dL 3.4 - 5.0 [facility] -[place] 200 Work Phone: ALP [Catalytic activity/Vol] 48 U/L 33 - 120 -Cardiology -[place] [facility] 200 Work Phone: ALT With P-5'-P [Catalytic activity/Vol] 15 U/L 10 - 52 -Cardiology Journey[facility]W 200 Work Phone: Comment on above: Patients treated wit h Sulfasalazine may generate falsely decreased results for ALT. Anion gap [Moles/Vol] 13 mmol/L 10 - 20 MP[facility]iology -[place] 200 Work Phone: AST With P-5'-P [Catalytic activity/Vol] 15 U/L 9 - 39 -Cardiology -[facility] [place] 200 Work Phone: [phone] Bilirubin [Mass/Vol] 0.5 mg/dL 0.0 - 1.2 -C [facility] 200 Work Phone: [phone] Calcium [Mass/Vol] 9.1 mg/dL 8.6 - 10.3 MP-[facility] Work Phone: [phone] Chloride [Moles/Vol] 103 mmol/L 98 - 107 -C [facility] 200 Work Phone: [phone] CO2 [Moles/Vol] 26 mmol/L 21 - 32 -Cardio logy -[facility] [place] 200 Work Phone: [phone] Creatinine [Mass/Vol] 0.85 mg/dL See Below [facility] 200 Work Phone: Comment on above: Reference Range: 0.5 0 - 1.30 Glucose [Mass/Vol] 95 mg/dL 74 - 99 -Car [facility] 200 Work Phone: Potassium [Moles/Vol] 3.6 mmol/L 3.5 - 5.3 - [facility] 200 Work Phone: Protein [Mass/Vol] 6.7 g/dL 6.4 - 8.2 -Car [facility] 200 Work Phone: [phone] Sodium [Moles/Vol] 138 mmol/L 136 - 145 -Car dioly -[facility] 200 Work Phone: [phone] Urea nitrogen [Mass/Vol] 10 mg/dL 6 - 23 -Cardiology -[facility] [place] 200 Work Phone: Lipase, Serumon 02-02-2021 Lipase [Catalytic activity/Vol] 16 U/L 9 - 82 -[facility] -[facility] [place] 200 Work Phone: [phone] Comment on above: Venipuncture immedia tely after or during the administration of Metamizole may lead to falsely low results. Testing should be performed immediately prior to Metamizole dosing. Y-nziovf-r-benzoquinone imine (metabolite of Acetaminophen) will generate erroneously low results in samples for patients that have taken toxic doses of acetaminophen. No Panel Informationon 02-02 [email or web address]?RetrieveTestByDateTim e?MrjnoxcZN=[id number]&Da te=02-02-2021&Time=23%3a 40%3a42%3a00&TestType=EC G&Site=2&OutputType=PDF& Ext=PDF [facility] [facility] 200 Work Phone: Sinus bradycardia MP-Card iology -[place] [facility] 200 Work Phone: Borderline Abnormal MP-Ca rdiology -[place] [facility] 200 Work Phone: [phone] [facility] -[place] [facility] 200 Work Phone: [phone] [facility] -[place] [facility] 200 Work Phone: [phone] [facility] -[place] [facility] 200 Work Phone: 105 1 [facility] -[place] [facility] 200 Work Phone: [phone] [facility] [facility] 200 Work Phone: 9 1 [facility] [facility] 200 Work Phone: 10 1 [facility] -[place] [facility] 200 Work Phone: -4 1 [facility] [facility] 200 Work Phone: 43 1 [facility] [facility] 200 Work Phone: [phone] [facility] [facility] 200 Work Phone: 406 1 [facility] [facility] 200 Work Phone: 102 1 [facility] [facility] 200 Work Phone: 204 1 [facility] [facility] 200 Work Phone: 54 1 [facility] [facility] 200 Work Phone: >60 >60 [facility] [facility] 200 Work Phone: Comment on above: CALCULATIONS OF NIKOLE MATED GFR ARE PERFORMED USING THE MDRD STUDY EQUATION FOR THE IDMS-TRACEABLE CREATININE METHODS. CLIN CHEM 2007;53:766-72 [email or web address]?RetrieveTestByDateTim e?ZkyvyhbUD=[id number]&Da te=02-02-2021&Time=19%3a 26%3a56%3a00&TestType=EC G&Site=2&OutputType=PDF& Ext=PDF [facility] [facility] 200 Work Phone: Normal sinus rhythm MP-Ca rdiology -[place] [facility] 200 Work Phone: Borderline Abnormal MP-Ca rdiology -[place] [facility] 200 Work Phone: [phone] [facility] -[place] [facility] 200 Work Phone: [phone] [facility] -[place] [facility] 200 Work Phone: 191 1 [facility] -[place] [facility] 200 Work Phone: 134 1 [facility] -[place] [facility] 200 Work Phone: [phone] 1 [facility] -[place] [facility] 200 Work Phone: 12 1 [facility] [facility] 200 Work Phone: 4 1 [facility] -[place] [facility] 200 Work Phone: -24 1 [facility] -[place] [facility] 200 Work Phone: 21 1 [facility] [facility] 200 Work Phone: [phone] [facility] [facility] 200 Work Phone: [phone] [facility] -[place] [facility] 200 Work Phone: [phone] 1 [facility] [facility] 200 Work Phone: 164 1 [facility] [facility] 200 Work Phone: [phone] 1 [facility] [facility] 200 Work Phone: [phone] Radiologyon 02-02-2021 XR Chest Single view Normal MP-C ardiology -[place] [facility] 200 Work Phone: [phone] Risk Screen - Adult Emergenc yon 02-02-2021 Risk Screen - Adult Emergency Preferred Language: Preferred Language: Preferred Language for Discussing Health Care (patient/designee)Fran carver Advanced Directives: Advance Directive/DNRno Family Violence Adult: Abuse Screen: Are you or have you been threatened or abused physically, emotionally, or sexually by anyoneno Learning Assessment (Patient): Learning Assessment (Patient): Patient is Able to be Assessed for Learningyes Factors Influencing Readiness to Learnanxiety Factors that Impact Ability to Learnnone Devices/Methods Used to Communicatenone Learning Preferencesverbal instruction Cultural Considerationsnone Developmental Considerationsnone Mandaeism Considerationsnone Learning Assessment (Other Learner): Learning Assessment (Other Learner): Other learner availableno Pressure Injury/TB/Substance: Pressure Injury: Do you have a coughno Admission Risk Screen: Significant IndicatorsComplete CAGE: CAGE: Is this an injured patient at a Trauma Center ([facility]/[place]): no Electronic Signatures: Ellie Rodriguez (RN) (Signed 02-Feb-2021 19:36) Authored: Preferred Language, Advanced Directives, Family Violence Adult, Learning Assessment (Patient), Learning Assessment (Other Learner), Pressure Injury/TB/Substance, Pressure Injury, CAGE Last Updated: 02-Feb-2021 19:36 by Ellie Rodriguez (RN) Normal [facility] TROPONIN Ion 02-02-2021 Troponin I.cardiac [Mass/Vol] ng/mL Normal 0.00 - 0.03 [facility] Comment on above: Result Comment: LESS [...] is performed using different testing methodology at [facility] than at other [facility]. Direct result comparisons should only be made within the same method. Performed By: #### T ROP2 ####[facility]AN [facility] [id number] [place] [address] Triage - EDon 02-02-2021 Triage - ED Chart Review: ARRIVAL INFORMATION Mode of Arrival: ambulance Agency: [facility] Agency Name: [place] CHIEF COMPLAINT HOSEA ALVAREZ is a Male patient with a chief complaint of multiple medical complaints. Onset of the Complaint: 02-Feb-2021 Other Complaints: Pt states that he has CP, back pain and is worried about being constipated. Pt states that he was seen at the [facility] and was diagnosed with a thoracic [...] 02-Feb-2021 19:33 by Nelly Dukes (EMT-P) Normal [facility] Troponin I, Serumon 02-03-20 21 Troponin I.cardiac [Mass/Vol] ng/mL See Below [employer]225 Work Phone: Comment on above: Reference Range: [...] is performed using different testing methodology at [facility] than at other [facility]. Direct result comparisons should only be made within the same method. Troponin I.cardiac [Mass/Vol] ng/mL See Below [employer] 200 Work Phone: Comment on above: Reference [...] is performed using different testing methodology at [facility] than at other [facility]. Direct result comparisons should only be made within the same method. Complete Blood Count + Diffe ubaldo 02-01-2021 Basophils/100 WBC (Bld) 0.3 % 0.0 - 2.0 [employer]225 Work Phone: Erythrocyte distribution width (RBC) [Ratio] 12.2 % See Below [employer]225 Work Phone: Comment on above: Reference Range: 11. 5 - 14.5 Hematocrit (Bld) [Volume fraction] 36.0 % below low threshold See Below [employer]if225 Work Phone: Comment on above: Reference Range: 41. 0 - 52.0 Hemoglobin (Bld) [Mass/Vol] 12.7 g/dL below low threshold See Below [employer] 200 Work Phone: Comment on above: Reference Range: 13. 5 - 17.5 Lymphocytes/100 WBC (Bld) 28.1 % See Below [employer]if225 Work Phone: Comment on above: Reference Range: 13. 0 - 44.0 MCHC (RBC) [Mass/Vol] 35.3 g/dL See Below [employer] Work Phone: Comment on above: Reference Range: 32. 0 - 36.0 MCV (RBC) [Entitic vol] 83 fL 80 - 100 [employer] Work Phone: Monocytes/100 WBC (Bld) 9.7 % 2.0 - 10.0 [facility] 200 Work Phone: Neutrophils/100 WBC (Bld) 58.4 % See Below [facility] 200 Work Phone: Comment on above: Reference Range: 40. 0 - 80.0 Platelets (Bld) [#/Vol] 167 10*3/uL 150 - 450 [facility] 200 Work Phone: [phone] RBC (Bld) [#/Vol] 4.35 {x10E12/L} below low threshold See Below [facility] 200 Work Phone: Comment on above: Reference Range: 4.5 0 - 5.90 WBC (Bld) [#/Vol] 3.5 10*3/uL below low threshold 4.4 - 11.3 [facility] 200 Work Phone: Complete Blood Count + Differential 0.01 {x10E9/L} See Below [facility] 200 Work Phone: Comment on above: Reference Range: 0.0 0 - 0.10 Complete Blood Count + Differential 0.11 {x10E9/L} See Below [facility] 200 Work Phone: Comment on above: Reference Range: 0.0 0 - 0.70 Complete Blood Count + Differential 0.34 {x10E9/L} See Below [facility] 200 Work Phone: Comment on above: Reference Range: 0.1 0 - 1.00 Complete Blood Count + Differential 0.98 {x10E9/L} below low threshold See Below [facility] 200 Work Phone: Comment on above: Reference Range: 1.2 0 - 4.80 Complete Blood Count + Differential 2.04 {x10E9/L} See Below [facility] 200 Work Phone: Comment on above: Reference Range: 1.2 0 - 7.70 Complete Blood Count + Differential 3.2 % 0.0 - 6.0 [facility] 200 Work Phone: Complete Blood Count + Differential 0.3 % 0.0 - 0.9 [facility] 200 Work Phone: Comment on above: Immature Granulocyte Count (IG) includes promyelocytes, myelocytes and metamyelocytes but does not include bands. Percent differential counts (%) should be interpreted in the context of the absolute cell counts (cells/L). Complete Blood Count + Differential 0.0 {/100_WBC} 0.0-0.0 [facility] 200 Work Phone: Laboratory - Chemistry and C hemistry - challengeon 02-01-2021 Albumin BCP dye [Mass/Vol] 4.1 g/dL 3.4 - 5.0 [facility] 200 Work Phone: ALP [Catalytic activity/Vol] 48 U/L 33 - 120 [facility] 200 Work Phone: ALT With P-5'-P [Catalytic activity/Vol] 15 U/L 10 - 52 [facility] [employer] Work Phone: Comment on above: Patients treated wit h Sulfasalazine may generate falsely decreased results for ALT. Anion gap [Moles/Vol] 14 mmol/L 10 - 20 [place] [address] Work Phone: AST With P-5'-P [Catalytic activity/Vol] 15 U/L 9 - 39 [facility] 200 Work Phone: Bilirubin [Mass/Vol] 0.5 mg/dL 0.0 - 1.2 [facility] 200 Work Phone: Calcium [Mass/Vol] 9.3 mg/dL 8.6 - 10.6 [facility]ENTERCar diologThree [facility] 200 Work Phone: Chloride [Moles/Vol] 103 mmol/L 98 - 107 [facility] 200 Work Phone: CO2 [Moles/Vol] 26 mmol/L 21 - 32 [facility] CENTERCardio logy [facility] 200 Work Phone: Creatinine [Mass/Vol] 0.87 mg/dL See Below [facility] 200 Work Phone: [phone] Comment on above: Reference Range: 0.5 0 - 1.30 Glucose [Mass/Vol] 118 mg/dL above high threshold 74 - 99 [facility] 200 Work Phone: Potassium [Moles/Vol] 3.6 mmol/L 3.5 - 5.3 [facility] 200 Work Phone: Protein [Mass/Vol] 6.4 g/dL 6.4 - 8.2 [facility] 200 Work Phone: [phone] Sodium [Moles/Vol] 139 mmol/L 136 - 145 [facility] 200 Work Phone: Urea nitrogen [Mass/Vol] 10 mg/dL 6 - 23 [place] [address] Work Phone: [phone] Lipase, Serumon 02-01-2021 Lipase [Catalytic activity/Vol] 18 U/L 9 - 82 [place] [address] Work Phone: Comment on above: Venipuncture immedia tely after or during the administration of Metamizole may lead to falsely low results. Testing should be performed immediately prior to Metamizole dosing. V-qrgvyo-p-benzoquinone imine (metabolite of Acetaminophen) will generate erroneously low results in samples for patients that have taken toxic doses of acetaminophen. No Panel Informationon 02-01 >60 >60 [facility] 200 Work Phone: Comment on above: CALCULATIONS OF NIKOLE MATED GFR ARE PERFORMED USING THE MDRD STUDY EQUATION FOR THE IDMS-TRACEABLE CREATININE METHODS. CLIN CHEM 2007;53:766-72 [email or web address] ll?RetrieveTestByDateTim e?RxafsjrSW=[id number]&Da te=08-27-2021&Time=19%3a 03%3a19%3a00&TestType=EC G&Site=1&OutputType=PDF& Ext=PDF [facility] [facility] 200 Work Phone: [phone] Please see ED Provid er Note for formal interpretation [facility] [facility] 200 Work Phone: [phone] Normal [facility] 200 Work Phone: [phone] 1 [facility] 200 Work Phone: [phone] 1 [facility] 200 Work Phone: [phone] 1 [facility] [facility] 200 Work Phone: [phone] 138 1 [facility] 200 Work Phone: [phone] 218 1 [facility] 200 Work Phone: [phone] 12 1 [facility] 200 Work Phone: [phone] 1 [facility] 200 Work Phone: [phone] 1 [facility] 200 Work Phone: [phone] 1 [facility] 200 Work Phone: [phone] 1 [facility] 200 Work Phone: [phone] 1 [facility] 200 Work Phone: [phone] 98 1 [facility] 200 Work Phone: [phone] 160 1 [facility] 200 Work Phone: [phone] 1 [facility] 200 Work Phone: [phone] Radiologyon 02-01-2021 XR Chest 2 Views Normal [facility] 200 Work Phone: [phone] Troponin I, Serumon 02-02-20 21 Troponin I.cardiac [Mass/Vol] ng/mL See Below [employer] 200 Work Phone: Comment on above: Reference [...] is performed using different testing methodology at [facility] than at other [facility]. Direct result comparisons should only be [...] Screening Asymptomtic Not detected Normal See Below [employer] 200 Work Phone: Comment on above: SOURCE: [...] this test method. Fact sheet for providers: www.fda.gov/media/480460/downloadFact sheet for patients: www.fda.gov/media/979677/downloadThis test has received FDA Emergency Use Authorization (EUA) and has been verified by [facility] ([facility]). This test is only authorized for the duration of time that circumstances exist to justify the authorization of the emergency use of in vitro diagnostic tests for the detection of SARS-CoV-2 virus and/or diagnosis of COVID-19 infection under section 564(b)(1) of the Act, 21 U.S.C. 360bbb-3(b)(1), unless the authorization is terminated or revoked sooner. [facility] is certified under CLIA-88 as qualified to perform high complexity testing. Testing is performed in the [facility] laboratories located at [address] [place] [address]. Complete Blood Count + Diffe ubaldo 01-29-2021 Basophils/100 WBC (Bld) 0.5 % 0.0 - 2.0 [facility] [employer] 200 Work Phone: Erythrocyte distribution width (RBC) [Ratio] 12.4 % See Below [employer] 200 Work Phone: Comment on above: Reference Range: 11. 5 - 14.5 Hematocrit (Bld) [Volume fraction] 35.5 % below low threshold See Below [employer] 200 Work Phone: Comment on above: Reference Range: 41. 0 - 52.0 Hemoglobin (Bld) [Mass/Vol] 12.1 g/dL below low threshold See Below [employer] 200 Work Phone: Comment on above: Reference Range: 13. 5 - 17.5 Lymphocytes/100 WBC (Bld) 19.5 % See Below [employer] 200 Work Phone: Comment on above: Reference Range: 13. 0 - 44.0 MCHC (RBC) [Mass/Vol] 34.1 g/dL See Below [employer] 200 Work Phone: Comment on above: Reference Range: 32. 0 - 36.0 MCV (RBC) [Entitic vol] 84 fL 80 - 100 [employer] 200 Work Phone: Monocytes/100 WBC (Bld) 9.6 % 2.0 - 10.0 [employer] 200 Work Phone: Neutrophils/100 WBC (Bld) 66.8 % See Below [employer] 200 Work Phone: Comment on above: Reference Range: 40. 0 - 80.0 Platelets (Bld) [#/Vol] 157 10*3/uL 150 - 450 [facility]ENTERMenuSpring [facility] 200 Work Phone: [phone] RBC (Bld) [#/Vol] 4.25 {x10E12/L} below low threshold See Below [facility] CENTERAFG [facility]Sher[facility] 200 Work Phone: Comment on above: Reference Range: 4.5 0 - 5.90 WBC (Bld) [#/Vol] 4.2 10*3/uL below low threshold 4.4 - 11.3 [facility] CENTERAFG [facility]Sher[facility] 200 Work Phone: Complete Blood Count + Differential 0.02 {x10E9/L} See Below [facility] CENTERAFG MediaSher[facility] 200 Work Phone: Comment on above: Reference Range: 0.0 0 - 0.10 Complete Blood Count + Differential 0.14 {x10E9/L} See Below [facility] CENTERAFG MediaSher[facility] 200 Work Phone: Comment on above: Reference Range: 0.0 0 - 0.70 Complete Blood Count + Differential 0.40 {x10E9/L} See Below [facility] CENTERAFG MediaSher[facility] 200 Work Phone: Comment on above: Reference Range: 0.1 0 - 1.00 Complete Blood Count + Differential 0.81 {x10E9/L} below low threshold See Below [facility] CENTERAFG MediaSher[facility] 200 Work Phone: Comment on above: Reference Range: 1.2 0 - 4.80 Complete Blood Count + Differential 2.78 {x10E9/L} See Below [facility] 200 Work Phone: Comment on above: Reference Range: 1.2 0 - 7.70 Complete Blood Count + Differential 3.4 % 0.0 - 6.0 [facility] CENTEREximSoft-[facility]zCent[facility] [place] 200 Work Phone: Complete Blood Count + Differential 0.2 % 0.0 - 0.9 [facility] [employer] 200 Work Phone: Comment on above: Immature Granulocyte Count (IG) includes promyelocytes, myelocytes and metamyelocytes but does not include bands. Percent differential counts (%) should be interpreted in the context of the absolute cell counts (cells/L). Laboratory - Chemistry and C hemistry - challengeon 01-29-2021 Albumin BCP dye [Mass/Vol] 4.1 g/dL 3.4 - 5.0 [facility] [employer] 200 Work Phone: ALP [Catalytic activity/Vol] 39 U/L 33 - 120 [facility] 200 Work Phone: ALT With P-5'-P [Catalytic activity/Vol] 17 U/L 10 - 52 [facility] 200 Work Phone: Comment on above: Patients treated wit h Sulfasalazine may generate falsely decreased results for ALT. Anion gap [Moles/Vol] 11 mmol/L 10 - 20 [facility] [employer] 200 Work Phone: AST With P-5'-P [Catalytic activity/Vol] 14 U/L 9 - 39 [facility] 200 Work Phone: Bilirubin [Mass/Vol] 0.3 mg/dL 0.0 - 1.2 -C [facility] 200 Work Phone: Calcium [Mass/Vol] 9.0 mg/dL 8.6 - 10.3 -Car diology [facility] 200 Work Phone: [phone] Chloride [Moles/Vol] 103 mmol/L 98 - 107 -C ardiology [facility] 200 Work Phone: CO2 [Moles/Vol] 27 mmol/L 21 - 32 -Cardio logy [facility] 200 Work Phone: Creatinine [Mass/Vol] 0.88 mg/dL See Below [facility] 200 Work Phone: Comment on above: Reference Range: 0.5 0 - 1.30 Glucose [Mass/Vol] 102 mg/dL above high threshold 74 - 99 [employer] 200 Work Phone: Potassium [Moles/Vol] 3.6 mmol/L 3.5 - 5.3 [employer] 200 Work Phone: Protein [Mass/Vol] 6.6 g/dL 6.4 - 8.2 [facility]Par[facility] MedicalSw[facility] [employer] 200 Work Phone: Sodium [Moles/Vol] 137 mmol/L 136 - 145 [facility]og[facility]usSwanton [employer] 200 Work Phone: Urea nitrogen [Mass/Vol] 10 mg/dL 6 - 23 [place] [employer] 200 Work Phone: Laboratory - Coagulationon 0 01-29-2021 INR Coag (PPP) [Relative time] 1.1 {INR} 0.9 - 1.1 [employer] [employer] 200 Work Phone: PT Coag (PPP) [Time] 12.7 s See Below [facility] 200 Work Phone: Comment on above: Reference Range: 10. 1 - 13.3 Magnesium, Serumon Magnesium [Mass/Vol] 1.90 mg/dL See Below [facility] [employer] 200 Work Phone: Comment on above: Reference Range: 1.6 0 - 2.40 No Panel Informationon 01-29 >60 >60 [employer] 200 Work Phone: Comment on above: CALCULATIONS OF NIKOLE MATED GFR ARE PERFORMED USING THE MDRD STUDY EQUATION FOR THE IDMS-TRACEABLE CREATININE METHODS. CLIN CHEM 2007;53:766-72 27 pg/mL 0 - 99 [employer] 200 Work Phone: Comment on above: . <100 pg/mL - Heart failure [id number] pg/mL - Intermediate probability of acute heart. failure exacerbation. Correlate with clinical. context and patient history. >=300 pg/mL - Heart Failure likely. Correlate with clinical. context and patient history.BNP testing is performed using different testing methodology at [facility] than at other [facility]. Direct result comparisons should only be made within the same method. Radiologyon 01-29-2021 XR Chest Single view Normal - ardiology -[employer] 200 Work Phone: TH CT Angio Chest For PEon 0 01-29-[address] Angio Chest For PE Normal [facility] CENTERIn[facility] 200 Work Phone: Troponin I, Serumon 01-30-20 Troponin I.cardiac [Mass/Vol] ng/mL See Below [employer]225 Work Phone: Comment on above: Reference Range: [...] is performed using different testing methodology at [facility] than at other [facility]. Direct result comparisons should only be made within the same method. Troponin I.cardiac [Mass/Vol] ng/mL See Below [employer]if225 Work Phone: Comment on above: Reference Range: [...] is performed using different testing methodology at [facility] than at other [facility]. Direct result comparisons should only be made within the same method. ECG COMPLETEon 02-04-2020 ECG COMPLETE NAME : SOFYA ALVAREZ ND PID : [id number] : 1970 Gender : Male Race : ORD : [id number] Procedure Date : Feb 04 2020 19:39:41 [...] ms QTC Calculation(Bezet) : 404 ms P [place] : 39 degrees R [place] : -19 degrees T [place] : 18 degrees Test Reason : Location :EDED12 Overread By : ELIZABET GARZA MD Editted By : ELIZABET GARZA MD Referred By : , Acquired by : [id number], [facility] ED NOTEon 02-04-2020 ED NOTE HNO ID: [id number] Author: Arie Becker RN Service: ? Author Type: Registered Nurse Type: ED Notes Filed: 02/04/2020 9:22 PM Note Text: Discharge instructions, prescriptions, and follow up care instructions reviewed with patient. Patient verbalized understanding. Patient was instructed to come back to the ED if symptoms worsened. Patient left the ED ambulatory with a steady gait. [facility] ED NOTE HNO ID: [id number] Author: Arie Becker RN Service: ? Author Type: Registered Nurse Type: ED Notes Filed: 02/04/2020 9:11 PM Note Text: Patient speaking with Literably at this time. [facility] ED NOTE HNO ID: [id number] Author: Arie Becker RN Service: ? Author Type: Registered Nurse Type: ED Notes Filed: 02/04/2020 9:11 PM Note Text: Nurse to room to discharge patient. Patient asleep and states I didn't call anyone yet. Explained to patient that he was up for discharge and would need to call for a ride. Patient requesting [employer] phone number. Patient provided with city cab's phone number. [facility] ED NOTE HNO ID: [id number] Author: Arie Becker RN Service: ? Author Type: Registered Nurse Type: ED Notes Filed: 02/04/2020 9:03 PM Note Text: Patient provided with cordless phone. [facility] ED NOTE HNO ID: [id number] Author: Arie Becker RN Service: ? Author Type: Registered Nurse Type: ED Notes Filed: 02/04/2020 9:03 PM Note Text: BROOKLYNN Pang at patients bedside speaking with patient. [facility] ED NOTE HNO ID: [id number] Author: Arie Becker RN Service: ? Author Type: Registered Nurse Type: ED Notes Filed: 02/04/2020 8:57 PM Note Text: Patient requesting to speak with charge nurse regarding how he was to get back to his car. Explained to patient that the hospital does not provide rides and its the patients responsibility to provide transportation. Patient requesting to speak with the charge nurse. BROOKLYNN Pang notified. [facility] ED NOTE HNO ID: [id number] Author: Arie Becker RN Service: ? Author Type: Registered Nurse Type: ED Notes Filed: 02/04/2020 8:55 PM Note Text: Patient provided with can of gingerale. [facility] ED NOTE HNO ID: [id number] Author: Arie Becker RN Service: ? Author Type: Registered Nurse Type: ED Notes Filed: 02/04/2020 8:50 PM Note Text: Natalia CALCINER FEEDER at patients bedside speaking with patient. [facility] ED NOTE HNO ID: [id number] Author: Arie Becker RN Service: ? Author Type: Registered Nurse Type: ED Notes Filed: 02/04/2020 8:27 PM Note Text: Patient provided with TV remote. [facility] ED NOTE HNO ID: [id number] Author: Arie Becker RN Service: ? Author Type: Registered Nurse Type: ED Notes Filed: 02/04/2020 8:18 PM Note Text: Assumed care of patient from BROOKLYNN Carranza. Patient resting comfortably on cart at this time. [facility] ED NOTE HNO ID: [id number] Author: Karen Resendiz RN Service: ? Author Type: Registered Nurse Type: ED Notes Filed: 02/04/2020 7:51 PM Note Text: Patient brought to ED via EMS with a possible reaction to a beer he drank about 6:30pm. Patient states he became flushed after drinking the beer. He also believes he had increased bp. No hives or itching. Patient did take his bp medications today. [facility] ED NOTE HNO ID: [id number] Author: Ervin Yadav LPN Service: ? Author Type: LICENSED NURSE Type: ED Notes Filed: 02/04/2020 7:39 PM Note Text: Bed: ED-12 Expected date: 02/04/20 Expected time: 7:32 PM Means of arrival: Comments: C-CAN [facility] ED PROV NOTEon 02-04-2020 ED PROV NOTE HNO ID: [id number] Author: Cathy Graham CNP Service: ? Author Type: Nurse Practitioner Type: ED Provider Notes Filed: 02/06/2020 12:58 PM Note Text: -------- Attestation signed by Andrews Kelly Jr., MD at 02/10/2020 7:02 PM I did not personally performed a face to face assessment of the patient but have reviewed the PA/ANSWERING SERVICE TELEPHONE OPERATOR note and was available for consultation throughout ED course. Signature: Andrews Kelly Jr, MD Date: 02/10/2020 Time: 7:02 PM -------- ED Provider Note Patient Name: Hosea Alvarez SERVICE DATE: 02/04/20 History Patient presents with: Allergic Reaction Hypertension History provided by: Patient History limited by: n/a. american sign language interpreter used: No Allergic Reaction Presenting symptoms: no [...] 75, No ST elevation or ST depression. NV interval 172, QRS 98, QTC 404 This [...] Patient verbalized understanding. Condition on discharge:stable Cathy Graham, LADONNA 02/06/20 1258 Andrews Kelly Jr., MD 02/10/20 1902 Normal [facility] APTTon 01-17-2020 aPTT Coag (Bld) [Time] 25.7 s [place], [place] Comment on above: PTT Therapeutic Range: 61.7-88.4 Therapeutic range corresponds to plasma heparin levels of 0.3-0.7 U/mL. CBC Auto Differentialon 12-23 Basophils (Bld) [#/Vol] 0.00 10*3/uL [place] Basophils/100 WBC (Bld) 0 % 0 - 2 % [place] Differential Type YES [place], [place] Eosinophils (Bld) [#/Vol] 0.10 10*3/uL [place] Eosinophils/100 WBC (Bld) 2 % 0 - 5 % [place] Erythrocyte distribution width (RBC) [Ratio] 13.6 % 12.1 - 15.2 % [place] Hematocrit (Bld) [Volume fraction] 40.0 % Low 41 - 53 % [place] Hemoglobin (Bld) [Mass/Vol] 13.6 g/dL 13.5 - 17.5 g/dL [place] Interpretation and review of laboratory results Abnormal [place] Lymphocytes (Bld) [#/Vol] 1.40 10*3/uL [place] Lymphocytes/100 WBC (Bld) 30 % 13 - 44 % [place] MCH (RBC) [Entitic mass] 28.6 pg 26 - 34 pg [place] MCHC (RBC) [Mass/Vol] 34.0 g/dL 31 - 37 g/dL [place] MCV (RBC) [Entitic vol] 84.2 fL 80 - 100 fL [place] Monocytes (Bld) [#/Vol] 0.30 10*3/uL [place] Monocytes/100 WBC (Bld) 7 % 5 - 9 % [place] Platelet mean volume (Bld) [Entitic vol] NOT REPORTED 6 - 12 fL [place], [place] Platelets (Bld) [#/Vol] 176 10*3/uL [place] Platelets (Bld) [#/Vol] NOT REPORTED [place] RBC (Bld) [#/Vol] 4.75 10*6/uL 4.5 - 5.9 m/uL [place] RBC morphology finding Nom (Bld) NOT REPORTED [place] Segmented neutrophils/100 WBC (Bld) 61 % 39 - 75 % [place] Segs Absolute 2.80 [place], [place] WBC (Bld) [#/Vol] 4.6 10*3/uL [place] WBC (Bld) [#/Vol] NOT REPORTED per 100 WBC [place], [place] WBC Morphology NOT REPORTED [place] CTA CHEST W CONTRASTon 01-16 PROCEDURE: [...] the spleen consistent with phase of injection. [facility], [place] No evidence of acute or chronic pulmonary [...] for infectious or inflammatory/reflux esophagitis is recommended.. [place] [facility] [place], [place] Ja[place], Mhpn Incoming Radiant Results From [employer] - 01/17/2020 3:50 AM EDT PROCEDURE: CTA [...] for infectious or inflammatory/reflux esophagitis is recommended.. [place] Comprehensive Metabolic Pane bart 01-17-2020 Albumin [Mass/Vol] 4.5 g/dL 3.5 - 5.2 g/dL [place] Albumin/Globulin [Mass ratio] NOT REPORTED [place] ALP [Catalytic activity/Vol] 67 U/L 40 - 129 U/L [place] ALT [Catalytic activity/Vol] 28 U/L 5 - 41 U/L [place] Anion gap [Moles/Vol] 18 mmol/L High 9 - 17 mmol/L [place] AST [Catalytic activity/Vol] 19 U/L <40 [place] Bilirubin Ql (U) 0.22 mg/dL Low 0.3 - 1.2 mg/dL [place] Bun/Cre Ratio NOT REPORTED [place] Calcium [Mass/Vol] 9.8 mg/dL 8.6 - 10. 4 mg/dL [place] Chloride [Moles/Vol] 102 mmol/L 98 - 10 7 mmol/L [place] CO2 [Moles/Vol] 21 mmol/L 20 - 31 mmol/L [place] Creatinine [Mass/Vol] 1.23 mg/dL High 0.7 - 1.2 mg/dL [place] GFR >60 >60 mL/min [place] GFR Non- >60 >60 mL/min [place] GFR/1.73 sq M predicted among non-blacks MDRD (S/P/Bld) [Vol rate/Area] [place], [place] Comment on above: Average GFR for 40-4 9 years old: 99 mL/min/1.73sq m Chronic Kidney Disease: <60 mL/min/1.73sq m Kidney failure: <15 mL/min/1.73sq m eGFR calculated using average adult body mass. Additional eGFR calculator available at: http://www.[email or web address]_crcl_[email or web address].htm GFR/1.73 sq M predicted among non-blacks MDRD (S/P/Bld) [Vol rate/Area] NOT REPORTED [place], [place] Glucose [Mass/Vol] 108 mg/dL High 70 - 99 mg/dL [place] Interpretation and review of laboratory results Abnormal [place] Potassium [Moles/Vol] 4.2 mmol/L 3.7 - 5.3 mmol/L [place] Protein [Mass/Vol] 7.7 g/dL 6.4 - 8.3 g/dL [place] Sodium [Moles/Vol] 141 mmol/L 135 - 144 mmol/L [place] Urea nitrogen [Mass/Vol] 20 mg/dL 6 - 20 mg/dL [place] Otheron 01-17-2020 Immature granulocytes (Bld) [#/Vol] NOT REPORTED [place] Protime-INRon 01-17-2020 INR Coag (PPP) [Relative time] 0.9 {INR} [place],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 [facility] Eosinophils (Bld) [#/Vol] 0.1 10*3/uL Normal 0.0-0.5 [facility] Eosinophils/100 WBC (Bld) 1.6 % Normal 0.7-6.5 [facility] Lymphocytes (Bld) [#/Vol] 1.1 10*3/uL Normal 1.1-3.5 [facility] Lymphocytes/100 WBC (Bld) 22.1 % Normal 17.0-44.0 [facility] Monocytes (Bld) [#/Vol] 0.4 10*3/uL Normal 0.3-1.0 [facility] Monocytes/100 WBC (Bld) 8.0 % Normal 5.3-12.5 [facility] Neutrophils (Bld) [#/Vol] 3.5 10*3/uL Normal 1.8-7.5 [facility] Neutrophils/100 WBC (Bld) 68.1 % Normal 41.0-73.8 [facility] CMPon 10-03-2018 Albumin [Mass/Vol] 4.5 g/dL Normal 3.5-5.0 [place] [facility] Alk Phos 51 IU/L Normal 32-91 [facility] ALT [Catalytic activity/Vol] 23 U/L Normal 7-45 [facility] Anion gap [Moles/Vol] 6.0 mmol/L Normal 5.0-19.0 [facility] AST [Catalytic activity/Vol] 16 U/L Normal 9-39 [facility] Bilirubin [Mass/Vol] 0.3 mg/dL Normal 0.3-1.2 [facility] Bun/CretRatio 16.0 Normal [facility] Calcium [Mass/Vol] 9.6 mg/dL Normal 8.6-10.6 [facility] Chloride [Moles/Vol] 102 mmol/L Normal 98-107 [facility] CO2 [Moles/Vol] 28 mmol/L Normal 22-32 [facility] Creatinine [Mass/Vol] 1.12 mg/dL Normal 0.60-1.30 [facility] Glucose [Mass/Vol] 96 mg/dL Normal 70-100 [place] [facility] Osmolality-Calc 274 mOsm/kg Normal [facility] Potassium [Moles/Vol] 4.1 mmol/L Normal 3.4-5.1 [facility] Protein [Mass/Vol] 6.9 g/dL Normal 6.5-8.1 [facility] Sodium [Moles/Vol] 136 mmol/L Normal 136-144 [place] [facility] Urea nitrogen [Mass/Vol] 18 mg/dL Normal 8-26 [facility] Lipaseon 10-03-2018 Lipase [Catalytic activity/Vol] 13 U/L Normal 9-82 [facility] PRIYA/CHEST 2 VIEWSon 10-03-19 19 PRIYA/CHEST 2 VIEWS Patient Name: HOSEA ALVAREZ STUDY: PRIYA/CHEST 2 VIEWS; 10/03/2018 9:03 pm INDICATION: cp. COMPARISON: 09/25/2018 ACCESSION NUMBER(S): [id number] ORDERING CLINICIAN: IRMA BUCHANAN FINDINGS: The cardiac silhouette size is enlarged, stable. The thoracic aorta is tortuous.There is no focal consolidation, pleural effusion, edema or pneumothorax. No acute osseous abnormality. IMPRESSION: Enlarged cardiac silhouette size and tortuous aorta, stable. No focal consolidation, pleural effusion, edema or pneumothorax but Dictated by: Electronically Signed by: Reidivelissemehul Rochelle Malikani Electronically Signed on: 10/03/2018 9:09 PM Normal [facility] PRIYA/CT/HEAD W/Oon 10-03-2018 PRIYA/CT/HEAD W/O Patient Name: HOSEA ALVAREZ STUDY: PRIYA/CT/HEAD W/O; 10/03/2018 9:23 pm INDICATION: dizziness. COMPARISON: None. ACCESSION NUMBER(S): [id number] ORDERING CLINICIAN: IRMA BUCHANAN TECHNIQUE: Noncontrast axial [...] Electronically Signed on: 10/03/2018 9:31 PM Normal [facility] Troponin Rfxon 10-03-2018 Troponin I.cardiac [Mass/Vol] ng/mL Normal [facility] Comment on above: Order Comment: Trop Rfx Replaces Trop order Result Comment: <0.04 Normal 0.04 - 0.50 Possible cardiac damage >0.50 Consistent with cardiac damage zCBCDon 10-03-2018 Erythrocyte distribution width (RBC) [Ratio] 12.9 % Normal 11.4-16.0 [facility] Hematocrit (Bld) [Volume fraction] 41.9 % Normal 37.5-49.2 [facility] Hemoglobin (Bld) [Mass/Vol] 14.0 g/dL Normal 13.4-17.5 [facility] MCH (RBC) [Entitic mass] 28.7 pg Normal 26.5-33.0 [facility] MCHC (RBC) [Mass/Vol] 33.4 g/dL Normal 32.6-36.0 [facility] MCV (RBC) [Entitic vol] 86.0 fL Normal 80.0-100.0 [facility] Mean Plt Vol 11.8 fL High 7.2-10.3 [facility] Platelets (Bld) [#/Vol] 153 10*3/uL Normal 144-400 [facility] RBC (Bld) [#/Vol] 4.87 x10E12/L Normal 4.18-5.87 [facility] WBC (Bld) [#/Vol] 5.1 10*3/uL Normal 4.3-10.5 [facility] APTTon 09-25-2018 aPTT Coag (Bld) [Time] 31 s Normal 28-38 [facility] Auto Diffon 09-25-2018 Basophils (Bld) [#/Vol] 0.0 10*3/uL Normal 0.0-0.2 [facility] Basophils/100 WBC (Bld) 0.2 % Normal 0.0-2.4 [facility] Eosinophils (Bld) [#/Vol] 0.1 10*3/uL Normal 0.0-0.5 [facility] Eosinophils/100 WBC (Bld) 1.3 % Normal 0.7-6.5 [facility] Lymphocytes (Bld) [#/Vol] 1.1 10*3/uL Normal 1.1-3.5 [facility] Lymphocytes/100 WBC (Bld) 21.4 % Normal 17.0-44.0 [facility] Monocytes (Bld) [#/Vol] 0.4 10*3/uL Normal 0.3-1.0 [facility] Monocytes/100 WBC (Bld) 7.4 % Normal 5.3-12.5 [facility] Neutrophils (Bld) [#/Vol] 3.7 10*3/uL Normal 1.8-7.5 [facility] Neutrophils/100 WBC (Bld) 69.7 % Normal 41.0-73.8 [facility] CMPon 09-25-2018 Albumin [Mass/Vol] 3.8 g/dL Normal 3.5-5.0 [facility] Alk Phos 50 IU/L Normal 32-91 [facility] ALT [Catalytic activity/Vol] 28 U/L Normal 14-63 [facility] Anion gap [Moles/Vol] 10.0 mmol/L Normal 5.0-19.0 [facility] AST [Catalytic activity/Vol] 25 U/L Normal 15-41 [facility] Bilirubin [Mass/Vol] 0.3 mg/dL Normal 0.3-1.2 [facility] Bun/CretRatio 20.8 Normal [facility] Calcium [Mass/Vol] 8.7 mg/dL Normal 8.1-10.1 [facility] Chloride [Moles/Vol] 102 mmol/L Normal 98-107 [facility] CO2 [Moles/Vol] 24 mmol/L Normal 22-32 [facility] Creatinine [Mass/Vol] 0.96 mg/dL Normal 0.60-1.30 [facility] Glucose [Mass/Vol] 93 mg/dL Normal 70-100 [facility] Osmolality-Calc 274 mOsm/kg Normal [facility] Potassium [Moles/Vol] 3.7 mmol/L Normal 3.4-5.1 [facility] Protein [Mass/Vol] 7.0 g/dL Normal 6.5-8.1 [facility] Sodium [Moles/Vol] 136 mmol/L Normal 136-144 [place] [facility] Urea nitrogen [Mass/Vol] 20 mg/dL Normal 8-26 [facility] CT/CTA ABD/PEL W&OR W/Oon CT/CTA ABD/PEL W&OR W/O Patient Name: HOSEA ALVAREZ STUDY: CT/CTA ABD/PEL W+OR W/O; 09/25/2018 9:26 pm INDICATION: AAA. COMPARISON: None. ACCESSION NUMBER(S): [id number] ORDERING CLINICIAN: MONALISA LUNA TECHNIQUE: CT of [...] Electronically Signed on: 09/25/2018 9:51 PM Normal [facility] CT/CTA CHEST W/AND/OR W/Oon 09-25-2018 CT/CTA CHEST W/AND/OR W/O Patient Name: HOSEA ALVAREZ STUDY: CT/CTA CHEST W/AND/OR W/O; 09/25/2018 9:26 pm INDICATION: Thoracic Dissection Protocol;. COMPARISON: None. ACCESSION NUMBER(S): [id number] ORDERING CLINICIAN: MONALISA LUNA TECHNIQUE: Using multi-detector [...] Lund Electronically Signed on: 09/25/2018 9:46 PM [facility] Provider Note - EDon 019 Provider Note - ED TIME SEEN: Time [id number] 19:05 CHIEF COMPLAINT/REASON FOR VISIT: Chief Complaintnot taken metoprolol in 1 week. HTN and back pain today around 1600, hx of AAA(1) REASON FOR VISITHTN, back pain, hx of AAA(1) Historianpatient HISTORY OF PRESENT ILLNESS - ADDITIONAL: ComplaintPatient presents complaining of high blood pressure, pain and history of ascending aortic aneurysm. Patient states he is from [place] and received Medicaid there, thus when he is in [place] he goes to a free medical clinic and is unable to continue his blood pressure medications. He is currently taking metoprolol but has not had a dose in 5 days. He complains of having blood pressure spikes that will resolve if he rests. Today he was having 1 and was seen at the [facility], and encouraged to be evaluated in the emergency department due to his history of a thoracic aortic aneurysm. Patient states he is feeling back pressure this evening that is new. He last had his aneurysm ultrasounded 3 months ago in [place]. He denies shortness of breath, chest pain, [...] Mean (mm Hg)Respiration (breaths/min) Respiration (breaths/min) 25-Sep-2018 19:[id number] SpO2 (%) SpO2 (%)O2 Therapy Delivery Method [...] - 10.5 x10E9/L] RBC4.59[4.18 - 5.87 x10E12/L] Zottudulvx64.1Image has been removed.[13.4 - 17.5 g/dL] Tawdxqdagv96.2[37.5 - 49.2 %] MCV_85.4[80.0 - 100.0 fL] MCH_28.5[26.5 - 33.0 pg] MCHC_33.4[32.6 - 36.0 g/dL] Platelets Ezwai005[144 - 400 x10E9/L] Mean Plt Vol_10.6Image has [...] 25-Sep-2018 19:53 Comprehensive Metabolic Panel ResultValueAbnRangeText Sodium, Nkzhn442[136 - 144 mmol/L] Potassium, Level3.7[3.4 - 5.1 mmol/L] Cscmmuxq697[98 - 107 mmol/L] CO224[22 - 32 mmol/L] Anion Gap, Serum_10.0[5.0 - 19.0 mmol/L] Glucose, Level93[70 - 100 mg/dL] Blood Urea Nitrogen, Serum20[8 - 26 mg/dL] Creatinine0.96[0.60 - 1.30 mg/dL] Calcium, Level8.7[8.1 - 10.1 mg/dL] Total Protein7.0[6.5 - 8.1 g/dL] Albumin, Level3.8[3.5 - 5.0 g/dL] Bilirubin Total0.3[0.3 - 1.2 mg/dL] Aspartate Iiagdidmeqjm01[15 - 41 IU/L] Alanine Npiwmkzwwfxy76[14 - 63 IU/L] Alkaline Vepigflsbnf05[32 - 91 IU/L] BUN/Creatinine Ratio_20.8 Osmolality-Calc_274[ mOsm/kg] 25-Sep-2018 19:53 Troponin Reflex ResultValueAbnRangeText Troponin<0.03[ ng/mL]<0.04 Normal 0.04 - 0.50 Possible cardiac damage >0.50 Consistent with cardiac damage DIAGNOSTIC TESTS AND OTHER RESULTS (24 hours): CTs: 25-Sep-2018 21:46 CTA Chest with Contrast ResultText CTA Chest with ContrastMRN: [id number] Patient Name: HOSEA ALVAREZ STUDY: CT/CTA CHEST W/AND/OR W/O; 09/25/2018 9:26 pm INDICATION: Thoracic Dissection Protocol;. COMPARISON: None. ACCESSION NUMBER(S): [id number] ORDERING CLINICIAN: MONALISA LUNA TECHNIQUE: Using multi-detector [...] ResultText CTA Abdomen and Pelvis with ContrastMRN: [id number] Patient Name: HOSEA ALVAREZ STUDY: CT/CTA ABD/PEL W+OR W/O; 09/25/2018 9:26 pm INDICATION: AAA. COMPARISON: None. ACCESSION NUMBER(S): [id number] ORDERING CLINICIAN: MONALISA LUNA TECHNIQUE: CT of [...] pm INDICATION: CP. COMPARISON: None. ACCESSION NUMBER(S): [id number] ORDERING CLINICIAN: MONALISA LUNA FINDINGS: AP and lateral views of the chest are obtained. There is no focal consolidation, pleural effusion or pneumothorax. The cardiomediastinal silhouette is within normal limits. The trachea is midline. No acute osseous abnormality. IMPRESSION: No acute intrathoracic findings. Dictated by: Electronically Signed by: Eugenia Avalos Electronically Signed on: 09/25/2018 8:28 PM EKG RESULTS/INTERPRETATION: EKG Date/Rprv49-Xbd-9330 18:33 Rate80 CommentsNormal sinus rhythm, no QRS [...] aortic aneurysm as scheduled. DIAGNOSES/PROBLEM LIST: Problem AnhkJwiiEpkjkwUKN-7MCR-5 0 Noncompliance with medication regimenED SbPviooqE66.81Z91.14 Uncontrolled hypertensionED EkUhzgzg490.9I10 History of aortic aneurysmED MoXfsbvbK54.59Z86.79 DISCHARGE DISPOSITION: Disposition: discharged Discharge Type: home [...] Triage Note, Emergency 09/25/2018 6:24 PM Normal [facility] Pton 09-25-2018 INR Coag (PPP) [Relative time] 1.0 {INR} Normal 0.9-1.1 [facility] Comment on above: Result Comment: Recommended ranges [...] Coag (PPP) [Time] 11.2 s Normal 9.7-12.7 [facility] RAD/CHEST 2V FRONTAL/LATon 0 09-25-2018 RAD/CHEST 2V FRONTAL/LAT Patient Name: HOSEA ALVAREZ STUDY: RAD/CHEST 2V FRONTAL/LAT;; 09/25/2018 8:02 pm INDICATION: CP. COMPARISON: None. ACCESSION NUMBER(S): [id number] ORDERING CLINICIAN: MONALISA LUNA FINDINGS: AP and lateral views of the chest are obtained. There is no focal consolidation, pleural effusion or pneumothorax. The cardiomediastinal silhouette is within normal limits. The trachea is midline. No acute osseous abnormality. IMPRESSION: No acute intrathoracic findings. Dictated by: Electronically Signed by: Eugenia Avalos Electronically Signed on: 09/25/2018 8:28 PM Normal [facility] Trop POCTon 09-25-2018 Troponin I.cardiac [Mass/Vol] ng/mL Normal [facility] Comment on above: Order Comment: Tropo jimmie POCT added per lab protocol Result Comment: <0.04 : Negative 0.04 - 0.50 : Possible Cardiac Damage >0.5 : Consistent With Cardiac Damage Troponin Rfxon 09-25-2018 Troponin I.cardiac [Mass/Vol] ng/mL Normal [facility] Comment on above: Order Comment: Trop Rfx Replaces Trop order Result Comment: <0.04 Normal 0.04 - 0.50 Possible cardiac damage >0.50 Consistent with cardiac damage zCBCDon 09-25-2018 Erythrocyte distribution width (RBC) [Ratio] 12.9 % Normal 11.4-16.0 [facility] Hematocrit (Bld) [Volume fraction] 39.2 % Normal 37.5-49.2 [facility] Hemoglobin (Bld) [Mass/Vol] 13.1 g/dL Low 13.4-17.5 [facility] MCH (RBC) [Entitic mass] 28.5 pg Normal 26.5-33.0 [facility] MCHC (RBC) [Mass/Vol] 33.4 g/dL Normal 32.6-36.0 [facility] MCV (RBC) [Entitic vol] 85.4 fL Normal 80.0-100.0 [facility] Mean Plt Vol 10.6 fL High 7.2-10.3 [facility] Platelets (Bld) [#/Vol] 156 10*3/uL Normal 144-400 [facility] RBC (Bld) [#/Vol] 4.59 x10E12/L Normal 4.18-5.87 [facility] WBC (Bld) [#/Vol] 5.4 10*3/uL Normal 4.3-10.5 [facility] BMPon 02-25-2018 Anion gap 7 mmol/L Normal 5-16 [facility] Comment [facility]: Order Comment: Campu s: M Performed By: #### L 500.39750, L500.25627 ####[facility] [id number] [place], [place] [address]Vy# [phone] BUN/Creatinine Ratio 12 mg/mg Low 15-24 [facility] Comment on above: Order Comment: Campu s: M Performed By: #### L 500.65098, L500.25032 ####[facility] [id number] [place], [place] [address]Bh# [phone] Calcium 8.9 mg/dL Normal 8.5-10.1 [facility] Comment on above: Order Comment: Campu s: M Performed By: #### L 500.43477, L500.99657 ####[facility] [id number] [place], [place] [address]Fc# [phone] Chloride 102 mmol/L Normal 98-107 [facility] Comment on above: Order Comment: Campu s: M Performed By: #### L 500.59865, L500.75231 ####[facility] [id number] [place], [place] [address]Ne# [phone] CO2 28 mmol/L Normal 21-32 [facility] Comment on above: Order Comment: Campu s: M Performed By: #### L 500.37830, L500.00303 ####[facility] [id number] [place], [place] [address]Nu# [phone] Creatinine 1.080 mg/dL Normal 0.670-1.170 [facility] Comment on above: Order Comment: Campu s: M Result Comment: Yanni ents receiving either N-Acetylcysteine (NAC) orMetamizole prior to venipuncture, may have falsely depressedresults. Performed By: #### L 500.30126, L500.78879 ####[place] [address] [place] [address]Ph# [phone] Glucose mass conc 87 mg/dL Normal 70-100 [facility] Comment on above: Order Comment: Campu s: M Result Comment: 70-1 00- Normal Fasting; 100-125 Impaired Fasting; greaterthan 126 on more than one result- Diabetes. ADA guidelines.Results may be falsely elevated after the administration ofSulfapyridine.Results may be falsely depressed after the administration ofSulfasalazine. Performed By: #### L 500.16539, L500.65645 ####[facility] [id number] [place], [place] [address]Rv# [phone] Potassium molar conc 3.8 mmol/L Normal 3.5-5.1 [facility] Comment on above: Order Comment: Campu s: M Performed By: #### L 500.62644, L500.18768 ####[facility] [id number] [place], [place] [address]Rf# [phone] Sodium 137 mmol/L Normal 136-145 [facility] Comment on above: Order Comment: Campu s: M Performed By: #### L 500.39271, L500.72573 ####[facility] [id number] [place], [place] [address]Jl# [phone] Urea nitrogen 13 mg/dL Normal 7-26 [facility] Comment on above: Order Comment: Campu s: M Performed By: #### L 500.47851, L500.44681 ####[place] [address]Ph# [phone] CBC W/DIFFon 02-25-2018 BASO ABS 0.00 K/CU MM Normal 0-0.2 [facility] Comment on above: Order Comment: Campu s: M Performed By: #### L 200.99994 ####[address] [address]Fm# [phone] Basophils/100 WBC Auto (Bld) 0.4 % Normal 0-2 [facility] Comment on above: Order Comment: Campu s: M Performed By: #### L 200.01510 ####[address] [address]Lu# [phone] EOS ABS 0.10 K/CU MM Normal 0-0.5 [facility] Comment on above: Order Comment: Campu s: M Performed By: #### L 200.49769 ####[address] [address]Za# [phone] Eosinophils/100 leukocytes 1.9 % Normal 0-5 [facility] Comment on above: Order Comment: Campu s: M Performed By: #### L 200.54976 ####[facility] [id number] [place] [address]Lw# [phone] Erythrocyte distribution width Auto Ratio (RBC) 13.0 % Normal 11-14.5 [facility] Comment on above: Order Comment: Campu s: M Performed By: #### L 200.11449 ####[facility] [id number] [place], [place] [address]Ph# [phone] Erythrocytes (RBC) 5.33 M/CU MM Normal 4.50-6.00 [facility] Comment on above: Order Comment: Campu s: M Performed By: #### L 200.65977 ####[facility] [id number] [place], [place] [address]Xj# [phone] Hematocrit (HCT) 44.0 % Normal 41.0-53.0 [facility] [place] Comment on above: Order Comment: Campu s: M Performed By: #### L 200.10153 ####[place] [address]Ph# [phone] Hemoglobin mass conc (Bld) 14.6 g/dL Normal 13.5-17.5 [facility] Comment on above: Order Comment: Campu s: M Performed By: #### L 200.77825 ####[place] [address]Ph# [phone] IMMATR GRAN ABS 0.00 K/CU MM Normal Less than 2 [facility] Comment on above: Order Comment: Campu s: M Performed By: #### L 200.58303 ####[place] [address]Ph# [phone] IMMATURE GRAN % 0.0 % Normal Less than 2 [facility] Comment on above: Order Comment: Campu s: M Performed By: #### L 200.66056 ####[facility] [id number] [place] [address]Ys# [phone] Lymphocytes 1.30 K/CU MM Normal 0.9-4.4 [facility] Comment on above: Order Comment: Campu s: M Performed By: #### L 200.21443 ####[facility] [id number] [place] [address]Yw# [phone] Lymphocytes/100 leukocytes 26.7 % Normal 20-40 [facility] Comment on above: Order Comment: Campu s: M Performed By: #### L 200.16630 ####[facility] [id number] [place], [place] [address]Nc# [phone] MCHC mass conc (RBC) 33.2 g/dL Normal 32.0-36.0 [facility] Comment on above: Order Comment: Campu s: M Performed By: #### L 200.86266 ####[facility] [id number] [place], [place] [address]Mx# [phone] MCV 82.6 fL Normal 80.0-99.0 [facility] Comment on above: Order Comment: Campu s: M Performed By: #### L 200.90357 ####[place] [address]Ph# [phone] MONO ABS 0.40 K/CU MM Normal 0.1-1.1 [facility] Comment on above: Order Comment: Campu s: M Performed By: #### L 200.54391 ####[facility] [id number] [place], [place] [address]Ph# [phone] Monocytes/100 leukocytes 7.9 % Normal 2-10 [facility] Comment on above: Order Comment: Campu s: M Performed By: #### L 200.56257 ####[facility] [id number] [place] [address]Bb# [phone] NEUTROPHIL ABS 3.10 K/CU MM Normal 2.0-8.3 [facility] [place] Comment on above: Order Comment: Campu s: M Performed By: #### L 200.75864 ####[facility] [id number] [place] [address]Cn# [phone] Neutrophils/100 WBC Auto (Bld) 63.1 % Normal 45-75 [facility] Comment on above: Order Comment: Campu s: M Performed By: #### L 200.14361 ####[facility] [id number] [place] [address]Xa# [phone] NRBC 0.0 % Normal Less than 1 [facility] Comment on above: Order Comment: Campu s: M Performed By: #### L 200.32951 ####[facility] [id number] [place], [place] [address]Kb# [phone] Platelet mean volume (PMV) 11.8 fL Normal 9.4-12.4 [facility] Comment on above: Order Comment: Campu s: M Performed By: #### L 200.64271 ####[facility] [id number] [place], [place] [address]Cx# [phone] Platelets 157 K/CU MM Normal 150-450 [facility] Comment on above: Order Comment: Campu s: M Performed By: #### L 200.35889 ####[facility] [id number] [place], [place] [address]Tq# [phone] WBC (Leukocytes) 4.8 K/CU MM Normal 4.5-11.0 [facility] Comment on above: Order Comment: Campu s: M Performed By: #### L 200.38100 ####[facility] [id number] [place], [place] [address]Pz# [phone] CHEST PA/AP AND LATERALon CHEST PA/AP AND [...] RUIZ M.D. Signed By: SAHIL RUIZ M.D. [facility]Con 02-25-2018 ED DOC PHYS ICIAN ASSESSMENT ======RECORDS: FlexChartDataEvent Time: 02/24/2018 23:45Status: [facility] [[id number] ]Attending [id number] / Angelina / 07/20/EvieChart (V2b)Chart created at 02/24/2018 23:37 by Nabeel Rojas closed at 02/25/2018 00:19Entry in Emergency Department at 02/24/2018 22:31,departure at 02/25/2018 00:47Patient Name: Jesu Alvarez Record Number: [id number]: 02/24/2018 23:37 EnteredDepartment at: 02/24/2018 22:31 Patient Seen at:02/24/2018 23:19 Historian: PatientChief Complaint:pt having high BP and chest pressure afterhiking today.Temperature: 99.1 F (37.3 C). Pulse: 82. Respiratory Rate:18. Blood-pressure:154/98. Oxygen Saturation: 97%.History of Present Illness:Patient is complaining of post chest pressure. He had somewhile he was hiking he has 100 pound backpackthat he walks around with doing the area canal. [facility] [place] He has family here sohe didnt decanted needle dropped [place] his prescription forhis [place] had some chest pressure earlier today but itsgone now since hes been resting here. He sayshe has family here and [place] gotthe pressure and he made his way over here. He [facility] PATIENT NAME: CAMILA ALVAREZ [facility] Dr. Warren MEDICAL REC #: [id number], [place] [address] DEPARTMENT CHART EMERGENCY DEPARTMENT PHYSICIANis on metoprolol [...] Occasional.Recreational Drugs: None.Family History: Reviewed RN Note [facility] PATIENT NAME: CAMILA ALVAREZed Warren MEDICAL REC #: [id number], [place] [address] DEPARTMENT CHART EMERGENCY DEPARTMENT PHYSICIANPhysical Examination: General: [...] No old Cardiogramavailable for comparisonImaging Study Obtained: [facility] PATIENT NAME: CAMILA ALVAREZ [facility]oleed Dr. Warren [facility] REC #: [id number], [place] [address] DEPARTMENT CHART EMERGENCY DEPARTMENT PHYSICIANCHEST PA/AP LATERALRadiology: [...] parts of the country becausehis tests that [facility] had in the past dont follow himeverywhere he is going in different hospitals. He isgoing to need to keep a disc and his records for hisradiologic and his medical records respectively.Ill discharge him have him [place].Re-Evaluation:00:13 : Symptoms Improved. Examination Improved.Additional Information: Discussed Results, Diagnosis andFollow-Up with Patient.Clinical Impression:1. transient chest pain resolvedDisposition: Discharged *Home at 25 Feb 2018, 00:19.Condition: StableMSE completed.I was the primary ED attending.. [facility] PATIENT NAME: CAMILA ALVAREZ Kendra Warren MEDICAL REC #: [id number], [place] [address] DEPARTMENT CHART EMERGENCY DEPARTMENT PHYSICIANPatient transported to [...] get your prescriptions filled.EKG and Radiology Results:A shoe polisher or radiologist will review any EKG or [facility] PATIENT NAME: CAMILA ALVAREZ Kendra Warren MEDICAL REC #: [id number], [place] [address] DEPARTMENT CHART EMERGENCY DEPARTMENT PHYSICIANradiology results provided [...] take the time to complete this short [facility] PATIENT NAME: [facility] [place] MEDICAL REC #: [id number], [place] [address] DEPARTMENT CHART EMERGENCY DEPARTMENT PHYSICIANsurvey. If you [...] below indicates consent for Case Managementto contact [facility] [place] [facility] to meet your ongoing healthcare needs. This willallow forcontinuity of care once you leave theEmergency Department. This exchange of informationwillinclude, but not be limited to, disclosure of yourpatient information and possible release of records. ====DEMOGRAPHICS======== [employer] Patient: JESU Gentile: MDOB: 1970Age: 47 yrAccount No: [id number]: [id number] Date: 02/24/2018Address[address]: [place] [address] =REGISTRATION =========ED Number: [id number]: Marital Status: SFinancial Class: SELF TRIAGE ==Priority: 3 - UrgentComplaint: Chest Pressure [facility] PATIENT NAME: CAMILA ALVAREZ Kendra Warren MEDICAL REC #: [id number], [place] [address] DEPARTMENT CHART EMERGENCY DEPARTMENT PHYSICIANComplaint: HypertensionStated Complaint: pt having high BP and chestpressure after hiking today.Arrival Date: 02/24/2018 22:31Triage Date: 02/24/2018 22:39Mode of Arrival: AmbulanceTransfer From: * HomeWC: NLanguage: EnglishTransport: [place] [facility] BED A 02 In: 02/24/2018 22:41:16 02/24/201822:41:16 MAFAA02 (Removed From) Out: 02/25/2018 00:47:16002/25/2018 00:47:16 MAFA PROVIDERS =====Emergency Medical Service Provider Contact:02/24/2018 22:39:10 EMSEnd:BROOKLYNN TREVINO Provider Contact: 02/24/201822:41:10 MAFAEnd:DO Nabeel Harris Provider Contact: 02/24/201823:19:09 CKEnd: ==TRIAGE HISTORY ===ALLERGIESAllergic To: No Known Allergies 02/24/2018 22:41 MAFACURRENT MEDSName: None 02/24/2018 22:41 MAFA [facility] PATIENT NAME: CAMILA ALVAREZ [facility] Dr. Warren MEDICAL REC #: [id number], [place] [address] DEPARTMENT CHART EMERGENCY DEPARTMENT PHYSICIANPAST SURGERY HISTSurgery: hemorrhoids 02/24/2018 22:41 MAFAPAST SOCIAL HISTSocial History: Behavior age appropriate 02/24/201822:41 MAFASocial History: Communicates without aoxkizmcli53/04/2018 22:41 MAFASocial History: Lives alone 02/24/2018 22:41 [...] 02/25/201800:11 MAFAElimination/Toiletin g NPain 4Position Comfortable Y [facility] PATIENT NAME: [facility] [place] MEDICAL REC #: [id number], [place] [address] DEPARTMENT CHART EMERGENCY DEPARTMENT PHYSICIANSafe Environment YFall Risk Change N002/24/2018 22:40 Patient Interaction - Call lightplaced within reach. 02/25/2018 00:11 MAFA02/24/2018 22:40 Patient Interaction - Introduce selfto Patient. 02/25/2018 00:11 MAF02/24/2018 22:40 Patient Interaction - Name Band on Pt02/25/2018 00:11 MAFA02/24/2018 23:35 POC testing results and criticalvalues - POC Troponin 0.00 on ED 1 atnjyspxod92/04/2018 23:45 HMHA02/25/2018 00:10 Hourly Rounding - Rounding 02/25/201800:11 MAFAElimination/Toiletin g NPain 0Position Comfortable YSafe Environment YAssessment Note call light within reach. family at thebedside.Fall Risk Change N002/25/2018 00:11 Primary DOC Guide - A. 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 No (0)Impaired Gait? No (0) [facility] PATIENT NAME: [facility]Z [facility] [place] MEDICAL REC #: [id number], [place] [address] DEPARTMENT CHART EMERGENCY DEPARTMENT PHYSICIANMobility Assist Device [...] now: NoFamily Violence Clinical Observation All Negative Efpqfn4402/25/2018 00:38 Admit/Discharge - Ambulated withsteady gait home 02/25/2018 00:38 MAFA02/25/2018 00:38 Admit/Discharge - Discharge 02/25/201800:38 [facility]02/25/2018 00:38 Admit/Discharge - Discharge infomationreviewed with pt 02/25/2018 00:38 [facility]02/25/2018 00:38 Admit/Discharge - Dischargeinstruction reviewed 02/25/2018 00:38 MAFA MEDICATIONS ===IV [facility] PATIENT NAME: CAMILA ALVAREZ Dr. Warren MEDICAL REC #: [id number], [place] [address] DEPARTMENT CHART EMERGENCY DEPARTMENT PHYSICIAN =====IV Fluid: [...] 00:38 MAFAVS-FHT Time: 02/25/2018 00:38 02/25/2018 00:38MAFA [facility] PATIENT NAME: CAMILA ALVAREZ Dr. [facility] REC #: [id number], [place] [address] DEPARTMENT CHART EMERGENCY DEPARTMENT PHYSICIANVS-Notes Time: 02/25/2018 [...] Nabeel HarrisCompleted Time: 02/25/2018 00:12 By Nabeel Edmonddication: Chest PressureNoted Time: 02/25/2018 00:04Question: How is patient transported? (A = Ambulatory, B =Bed, C = Carry, CR = Crib, P = Portable, S = Stretcher, W =Wheelchair, X = Wide Wheelchair, XT = Trauma X RM17 (EDOnly))Answer: STRETCHERIV hep lock 02/24/2018 23:36N/AOrdered: 02/24/2018 23:33 By ProtocolCompleted Time: 02/24/2018 23:36 By ProtocolPOC troponin 02/24/2018 23:45N/AOrdered: 02/24/2018 22:43 By Protocol [facility] PATIENT NAME: CAMILA ALVAREZ Kendra Warren MEDICAL REC #: [id number], [place] [address] DEPARTMENT CHART EMERGENCY DEPARTMENT PHYSICIANCompleted Time: 02/24/2018 [...] ProtocolCancelled: 02/24/2018 23:36 MAFACancelled Reason: not needed [facility] PATIENT NAME: [facility] [place] MEDICAL REC #: [id number], [place] [address] DEPARTMENT CHART EMERGENCY DEPARTMENT PHYSICIANPOC troponin 02/24/2018 23:36N/AOrdered: 02/24/2018 23:33 By ProtocolCancelled: 02/24/2018 23:36 MAFACancelled Reason: not neededFingerstick glucose 02/24/2018 23:36N/AOrdered: 02/24/2018 23:33 By ProtocolCancelled: 02/24/2018 23:36 MAFACancelled Reason: error =DISCHARGE ======Diagnosis: transient chest pain resolved 02/25/201800:21CANCELLED DIAGNOSESDiagnosis Name: transient chest pain resolvedDiagnosis Name: transient chest pain resolvedDisposition: Time: 02/25/2018 00:20By: Nabeel Bashirchamarcia Time: 02/25/2018 00:47Type: DischargeCondition: Stable for admission/discharge/reyes sferaer emergency evaluation/treatment Category: *NOTAPPLICABLEConcurred: 02/25/2018 00:30 Referral:02/25/2018 00:21 =PRESCRIPTIONS ======CHARGES =====SIGNATURE Nabeel BARRON [facility] PATIENT NAME: CAMILA ALVAREZ Kendra Warren MEDICAL REC #: [id number], [place] [address] DEPARTMENT CHART EMERGENCY DEPARTMENT PHYSICIAN [facility] PATIENT NAME: CAMILA ALVAREZ Kendra Warren MEDICAL REC #: [id number], [place] [address] DEPARTMENT CHART EMERGENCY DEPARTMENT PHYSICIAN Normal [facility] ED Documentation This is a preliminar y report only, as the practitioner review and authentication has not occurred. [facility] EKGon 02-25-2018 EKG Procedure Date and T chucky: 02/24/189Test Reason : STATBlood Pressure : / mmHGVent. [...] By: Emergency Stk Cnty Confirmed By:Indu ROSENBERG M.D.FACC _ AlokDDandT: 02/24/18 2249TDandT:[facility] PATIENT NAME: CAMILA ALVAREZ Kendra Warren MEDICAL REC #: [id number], [place] [address] DATE:DISCHARGE DATE: 02/25/18ATTENDING PHY: Nabeel Harris DOELECTROCARDIOGRAM REPORTCLBc:[facility] PATIENT NAME: CAMILA ALVAREZ [facility] Dr. Warren MEDICAL REC #: [id number], [place] [address] DATE:DISCHARGE DATE: 02/25/18ATTENDING PHY: Nabeel Harris DOELECTROCARDIOGRAM REPORT Normal [facility] ELECTROCARDIOGRAM REPORT Normal [facility] GFR ESTon 02-25-2018 IF AMER Greater than 60 Normal [facility] Comment on above: Order Comment: Miguel Angelu s: M Performed By: #### L 500.51962, L500.80673 ####[facility] [id number] [place], [place] [address]Mi# [phone] IF non-AFR AMER Greater than 60 Normal [facility] Comment on above: Order Comment: Campu s: M Performed By: #### L 500.47760, L500.73519 ####[facility] [id number] [place], [place] [address]Jq# [phone] TROPONIN I POCon 02-25-2018 Troponin I.cardiac mass conc 0.00 ng/mL Normal 0.0-0.06 [facility] Comment on above: Result Comment: 0.0 - 0.06 NG/ML - NON-DIAGNOSTIC (REFERENCE RANGE)0.07 - 0.59 NG/ML - INDETERMINATEGreater than or equal to 0.6 NG/ML - INDICATIVE OFMYOCARDIAL DAMAGE Basic Metabolic Panelon Calcium 9.3 mg/dL Normal 8.4-10.2 [facility] Comment on above: Performed By: #### H EMOG, BMP3, CK3 ####A[facility]PP[address] [place] [address] Glucose mass conc 107 mg/dL High 70-100 [facility] Comment on above: Performed By: #### H EMOG, BMP3, CK3 ####AAMPP[address] [place] [address] Urea nitrogen 13 mg/dL Normal 7-20 [facility] Comment on above: Performed By: #### H EMOCristobal, BMP3, CK3 ####[facility] [place] [address] Anion gap 9 Normal [facility] Comment on above: Performed By: #### H EMOCristobal, BMP3, CK3 ####[place] [address] [place] [address] CO2 25 mmol/L Normal 22-30 [facility] Comment on above: Performed By: #### H EMOCristobal, BMP3, CK3 ####[place] [address] [place] [address] Creatinine 0.93 mg/dL Normal 0.52-1.25 [facility] Comment on above: Performed By: #### H LESA, BMP3, CK3 ####[place] [address] [place] [address] eGFR (black) mL/min/{1.73_m2} Normal >60 [facility] Comment on above: Performed By: #### H LESA, BMP3, CK3 ####[place] [address] [place] [address] eGFR (non-black) mL/min/{1.73_m2} Normal >60 [facility] Comment on above: Result Comment: Sour ce- MDRD equation with creatinine calibration to IDMS(NKDEP) eGFR not recommended for drug dose adjustment Performed By: #### H EMOCristobal, BMP3, CK3 ####[facility] [place] [address] Potassium molar conc 3.7 mmol/L Normal 3.5-5.1 [facility] Comment on above: Performed By: #### H LESA BMP3, CK3 ####[facility] [place] [address] Chloride 103 mmol/L Normal 98-107 [facility] Comment on above: Performed By: #### H EMOCristobal, BMP3, CK3 ####[place] [address] [place] [address] Sodium 137 mmol/L Normal 137-145 [facility] Comment on above: Performed By: #### H EMOCristobal BMP3, CK3 ####[facility] [place] [address] CKon 02-23-2018 Creatine kinase (CK) 121 U/L Normal 30-170 [facility] Comment on above: Performed By: #### Mehul EMOG BMP3, CK3 ####[address] [place] [address] Hemogramon 02-23-2018 Erythrocyte distribution width Auto Ratio (RBC) 13.5 % Normal 11.5-14.5 [facility] Comment on above: Performed By: #### H LESA BMP3, CK3 ####[address] [place] [address] Erythrocytes (RBC) 5.17 10*6/uL Normal 4.40-5.90 [facility] Comment on above: Performed By: #### Mehul MCFADDEN BMP3, CK3 ####[address] [facility] [place] [address] Hematocrit (HCT) 42.8 % Normal 40.0-52.0 [facility] Comment on above: Performed By: #### Mehul MCFADDEN BMP3, CK3 ####[address] [place] [address] Hemoglobin mass conc (Bld) 14.8 g/dL Normal 13.0-18.0 [facility] Comment on above: Performed By: #### Mehul MCFADDEN BMP3, CK3 ####[address] [facility] [place] [address] MCH 28.7 pg Normal 26.0-34.0 [facility] Comment on above: Performed By: #### Mehul EMOG, BMP3, CK3 ####[address] [place] [address] MCHC mass conc (RBC) 34.6 % Normal 32.0-36.0 [facility] Comment on above: Performed By: #### Mehul EMOG, BMP3, CK3 ####[address] [facility] [place] [address] MCV 82.8 fL Normal 80.0-98.0 [facility] Comment on above: Performed By: #### H EMOG, BMP3, CK3 ####[facility] [place] [address] Platelet mean volume (PMV) 10.3 fL Normal 7.4-10.4 [facility] Comment on above: Performed By: #### H EMOG, BMP3, CK3 ####[facility] [place] [address] Platelets 140 10*3/uL Normal 140-440 [facility] Comment on above: Performed By: #### H EMOG, BMP3, CK3 ####[facility] [employer] [address] [place] [address] WBC (Leukocytes) 5.0 10*3/uL Normal 3.6-10.7 [facility] Comment on above: Performed By: #### H EMOG, BMP3, CK3 ####[facility] [employer] [place] [address] [place] [address] Urinalysis,Macroon 8 Bilirubin (direct) Negative Normal Negative [facility] Comment on above: Performed By: #### U AMAC ####[facility] [employer] [place] [address] [place] [address] Ketone,Urine Negative Normal Negative [facility] Comment on above: Performed By: #### U AMAC ####[address] [place] [address] Occult Blood,Ur Negative Normal Negative [facility] Comment on above: Performed By: #### U AMAC ####[place] [address] [place] [address] Specific [place],Urine 1.005 Normal 1.005-1.030 [facility] Comment on above: Performed By: #### U AMAC ####[place] [address] [place] [address] Total Protein,Urine Negative Normal Negative [facility] Comment on above: Performed By: #### U AMAC ####[address] [place] [address] Urine, appearance CLEAR Normal Clear [facility] Comment on above: Performed By: #### U AMAC ####[facility] [employer] [address] [place] [address] Urine, color YELLOW Normal Lt. Yellow [facility] Comment on above: Performed By: #### U AMAC ####[facility] [employer] [address] [place] [address] Urine, glucose presence Negative Normal Negative [facility] Comment on above: Performed By: #### U AMAC ####[facility] [employer] [address] [place] [address] Urine, nitrite presence Negative Normal Negative [facility] Comment on above: Performed By: #### U AMAC ####[employer] [address] [place] [address] Urine, pH 6.5 Normal 5.0-8.0 [facility] Comment on above: Performed By: #### U AMAC ####[facility] [employer] [address] [place] [address] Urine, urobilinogen 0.2 mg/dL Normal 0-1 [facility] Comment on above: Performed By: #### U AMAC ####[employer] [address] [place] [address] WBC (Leukocytes) Negative Normal Negative [facility] Comment on above: Performed By: #### U AMAC ####[employer] [address] [place] [address] Vital Signs Date Time Vital Sign Value Performing Clinician Facility 08-07-2024 11:51-0500 Diastolic blood pressure 95 mm[Hg] Howard Martin [facility] 08-07-2024 11:51-0500 Systolic blood pressure 148 mm[Hg] Howard Martin [facility] 08-07-2024 11:46-0500 Body temperature 98.06 [degF] Howard Martin [facility] 08-07-2024 11:46-0500 Diastolic blood pressure 107 mm[Hg] Howard Martin [facility] 08-07-2024 11:46-0500 Heart rate 84 /min Howard Martin [facility] 08-07-2024 11:46-0500 Respiratory rate 16 /min Howard Martin [facility] 08-07-2024 11:46-0500 SaO2% (BldA) [Mass fraction] 98 % Howard Martin [facility] 08-07-2024 11:46-0500 Systolic blood pressure 166 mm[Hg] Howard Martin [facility] 08-02-2024 23:34-0500 Diastolic blood pressure 94 mm[Hg] Kaylinn Dokken [facility] 08-02-2024 23:34-0500 Heart rate 83 /min Kaylinn Dokken [facility] 08-02-2024 23:34-0500 Mean blood pressure 111 mm[Hg] Kaylinn Dokken [facility] 08-02-2024 23:34-0500 Respiratory rate 20 /min Kaylinn Dokken [facility] 08-02-2024 23:34-0500 SaO2% (BldA) [Mass fraction] 99 % Kaylinn Dokken [facility] 08-02-2024 23:34-0500 Systolic blood pressure 145 mm[Hg] Kaylinn Dokken [facility] 08-02-2024 20:39-0500 Body temperature 98.06 [degF] Kaylinn Dokken [facility] 08-02-2024 20:39-0500 Diastolic blood pressure 79 mm[Hg] Kaylinn Dokken [facility] 08-02-2024 20:39-0500 Heart rate 88 /min Chenn Dokken [facility] 08-02-2024 20:39-0500 Respiratory rate 20 /min Yusrainn Dokken [facility] 08-02-2024 20:39-0500 SaO2% (BldA) [Mass fraction] 94 % Yusrainn Dokken [facility] 08-02-2024 20:39-0500 Systolic blood pressure 146 mm[Hg] Chenn Dokken [facility] 2024 11:07-0400 Blood Pressure Location Alfred Sarmini [facility] 2024 11:07-0400 Diastolic blood pressure 88 mm[Hg] Alfred Sarmini [facility] 2024 11:07-0400 Heart rate 88 /min Alfred Sarmini [facility] 2024 11:07-0400 Respiratory rate 16 /min Alfred Sarmini [facility] 2024 11:07-0400 Systolic blood pressure 148 mm[Hg] Alfred Sarmini [facility] 07-17-2024 20:36-0400 Body temperature 98.24 [degF] Neil Alexander [facility] 07-17-2024 20:36-0400 Diastolic blood pressure 96 mm[Hg] Neil Alexander [facility] 07-17-2024 20:36-0400 Heart rate 85 /min Neil Alexander [facility] 07-17-2024 20:36-0400 Respiratory rate 20 /min Neil Benjamin [facility] 07-17-2024 20:36-0400 SaO2% (BldA) [Mass fraction] 96 % Neil Alexander [facility] 07-17-2024 20:36-0400 Systolic blood pressure 148 mm[Hg] Neil Benjamin [facility] 07-16-2024 21:18-0400 Body temperature 97.88 [degF] Neil Alexander [facility] 07-16-2024 21:18-0400 Diastolic blood pressure 80 mm[Hg] Neil Alexander [facility] 07-16-2024 21:18-0400 Heart rate 73 /min Neil Alexander [facility] 07-16-2024 21:18-0400 Respiratory rate 16 /min Neil Alexander [facility] 07-16-2024 21:18-0400 SaO2% (BldA) [Mass fraction] 98 % Neil Alexander [facility] 07-16-2024 21:18-0400 Systolic blood pressure 138 mm[Hg] Neil Alexander [facility] 07-16-2024 16:02-0400 Diastolic blood pressure 82 mm[Hg] DO Gustavo Tupa Work Phone: [facility] 07-16-2024 16:02-0400 Heart rate 60 /min DO Gustavo Tupa Work Phone: [facility] 07-16-2024 16:02-0400 Respiratory rate 18 /min DO Gustavo Tupa Work Phone: [facility] 07-16-2024 16:02-0400 SaO2% (BldA) [Mass fraction] 98 % DO Gustavo Tupa Work Phone: [facility] 07-16-2024 16:02-0400 Systolic blood pressure 118 mm[Hg] DO Gustavo Tupa Work Phone: [facility] 07-16-2024 12:12-0400 Body temperature 98.5 [degF] DO Gustavo Tupa Work Phone: [facility] 07-16-2024 12:03-0400 Body height 167.64 cm DO Gustavo Tupa Work Phone: [facility] 07-16-2024 12:03-0400 Body weight 96.3 kg DO Gustavo Tupa Work Phone: [facility] 07-15-2024 15:09-0400 Diastolic blood pressure 109 mm[Hg] DO Gustavo Tupa Work Phone: [facility] 07-15-2024 15:09-0400 Heart rate 89 /min DO Gustavo Tupa Work Phone: [facility] 07-15-2024 15:09-0400 Systolic blood pressure 152 mm[Hg] DO Gustavo Tupa Work Phone: [facility] 07-15-2024 13:25-0400 Body height 167.64 cm DO Gustavo Tupa Work Phone: [facility] 07-15-2024 13:25-0400 Body temperature 98.5 [degF] DO Gustavo Tupa Work Phone: [facility] 07-15-2024 13:25-0400 Body weight 94 kg DO Gustavo Tupa Work Phone: [facility] 07-15-2024 13:25-0400 Respiratory rate 18 /min DO Gustavo Tupa Work Phone: [facility] 07-15-2024 13:25-0400 SaO2% (BldA) [Mass fraction] 98 % DO Gustavo Tupa Work Phone: [facility] 07-15-2024 10:07-0400 Body mass index (BMI) [Ratio] 33.4 kg/m2 DO Gustavo Tupa Work Phone: [facility] 07-15-2024 10:07-0400 Diastolic blood pressure 97 mm[Hg] DO Gustavo Tupa Work Phone: [facility] 07-15-2024 10:07-0400 Systolic blood pressure 131 mm[Hg] DO Gustavo Tupa Work Phone: [facility] 07-15-2024 10:01-0400 Body height 167.64 cm DO Gustavo Tupa Work Phone: [facility] 07-15-2024 10:01-0400 Body weight 93.92 kg DO Gustavo Tupa Work Phone: [facility] 07-14-2024 15:16-0400 Diastolic blood pressure 80 mm[Hg] DO Gustavo Tupa Work Phone: [facility] 07-14-2024 15:16-0400 Heart rate 64 /min DO Gustavo Tupa Work Phone: [facility] 07-14-2024 15:16-0400 Respiratory rate 16 /min DO Gustavo Tupa Work Phone: [facility] 07-14-2024 15:16-0400 SaO2% (BldA) [Mass fraction] 100 % DO Gustavo Tupa Work Phone: [facility] 07-14-2024 15:16-0400 Systolic blood pressure 135 mm[Hg] DO Gustavo Tupa Work Phone: [facility] 07-14-2024 12:29-0400 Body height 167.64 cm DO Gustavo Tupa Work Phone: [facility] 07-14-2024 12:29-0400 Body weight 95.25 kg DO Gustavo Mcclelland Work Phone: [facility] 07-11-2024 14:00-0400 Diastolic blood pressure 89 mm[Hg] [facility] 07-11-2024 14:00-0400 Heart rate 63 /min [facility] 07-11-2024 14:00-0400 Mean blood pressure 109 mm[Hg] [facility] 07-11-2024 14:00-0400 SaO2% (BldA) [Mass fraction] 99 % [facility] 07-11-2024 14:00-0400 Systolic blood pressure 150 mm[Hg] [facility] 07-11-2024 13:00-0400 Diastolic blood pressure 67 mm[Hg] [facility] 07-11-2024 13:00-0400 Mean blood pressure 85 mm[Hg] [facility] 07-11-2024 13:00-0400 Respiratory rate 14 /min [facility] 07-11-2024 13:00-0400 Systolic blood pressure 121 mm[Hg] [facility] 07-11-2024 12:01-0400 Diastolic blood pressure 79 mm[Hg] [facility] 07-11-2024 12:01-0400 Heart rate 61 /min [facility] 07-11-2024 12:01-0400 Mean blood pressure 89 mm[Hg] [facility] 07-11-2024 12:01-0400 Respiratory rate 16 /min [facility] 07-11-2024 12:01-0400 SaO2% (BldA) [Mass fraction] 97 % [facility] 07-11-2024 12:01-0400 Systolic blood pressure 110 mm[Hg] [facility] 07-11-2024 10:45-0400 Body temperature 98.06 [degF] [facility] 07-11-2024 10:45-0400 Heart rate 86 /min [facility] 07-11-2024 10:45-0400 Respiratory rate 18 /min [facility] 07-09-2024 20:29-0400 Diastolic blood pressure 97 mm[Hg] [facility] 07-09-2024 20:29-0400 Heart rate 71 /min [facility] 07-09-2024 20:29-0400 Mean blood pressure 111 mm[Hg] [facility] 07-09-2024 20:29-0400 Respiratory rate 21 /min [facility] 07-09-2024 20:29-0400 SaO2% (BldA) [Mass fraction] 97 % [facility] 07-09-2024 20:29-0400 Systolic blood pressure 139 mm[Hg] [facility] 07-09-2024 20:01-0400 Diastolic blood pressure 107 mm[Hg] [facility] 07-09-2024 20:01-0400 Heart rate 71 /min [facility] 07-09-2024 20:01-0400 Mean blood pressure 119 mm[Hg] [facility] 07-09-2024 20:01-0400 Respiratory rate 16 /min [facility] 07-09-2024 20:01-0400 SaO2% (BldA) [Mass fraction] 96 % [facility] 07-09-2024 20:01-0400 Systolic blood pressure 143 mm[Hg] [facility] 07-09-2024 19:51-0400 Diastolic blood pressure 110 mm[Hg] [facility] 07-09-2024 19:51-0400 Systolic blood pressure 145 mm[Hg] [facility] 07-09-2024 19:02-0400 Heart rate 85 /min [facility] 07-09-2024 18:24-0400 Body temperature 98.24 [degF] [facility] 07-09-2024 18:24-0400 Heart rate 91 /min [facility] 07-09-2024 18:24-0400 Respiratory rate 18 /min [facility] 07-09-2024 18:24-0400 SaO2% (BldA) [Mass fraction] 98 % [facility] 06-07-2023 14:13-0400 Diastolic blood pressure 82 mm[Hg] Text Entry Free [facility] 06-07-2023 14:13-0400 Heart rate 59 /min Text Entry Free [facility] 06-07-2023 14:13-0400 Systolic blood pressure 107 mm[Hg] Text Entry Free [facility] 06-07-2023 11:51-0400 SaO2% (BldA) [Mass fraction] 100 % Text Entry Free [facility] 06-07-2023 10:01-0400 Body height 167.6 cm Text Entry Free [facility] 06-07-2023 10:01-0400 Body temperature 96.98 [degF] Text Entry Free [facility] 06-07-2023 10:01-0400 Body weight 95 kg Text Entry Free [facility] 06-07-2023 10:01-0400 Respiratory rate 16 /min Text Entry Free [facility] 06-06-2023 22:55-0400 Diastolic blood pressure 86 mm[Hg] Text Entry Free [facility] 06-06-2023 22:55-0400 Heart rate 68 /min Text Entry Free [facility] 06-06-2023 22:55-0400 Respiratory rate 20 /min Text Entry Free [facility] 06-06-2023 22:55-0400 SaO2% (BldA) [Mass fraction] 97 % Text Entry Free [facility] 06-06-2023 22:55-0400 Systolic blood pressure 133 mm[Hg] Text Entry Free [facility] 06-06-2023 20:28-0400 Body height 167.6 cm Text Entry Free [facility] 06-06-2023 20:28-0400 Body temperature 97.34 [degF] Text Entry Free [facility] 06-06-2023 20:28-0400 Body weight 100 kg Text Entry Free [facility] 06-04-2023 18:52-0400 Diastolic blood pressure 80 mm[Hg] Text Entry Free [facility] 06-04-2023 18:52-0400 Heart rate 72 /min Text Entry Free [facility] 06-04-2023 18:52-0400 Respiratory rate 16 /min Text Entry Free [facility] 06-04-2023 18:52-0400 SaO2% (BldA) [Mass fraction] 97 % Text Entry Free [facility] 06-04-2023 18:52-0400 Systolic blood pressure 121 mm[Hg] Text Entry Free [facility] 06-04-2023 17:07-0400 Body height 167.6 cm Text Entry Free [facility] 06-04-2023 17:07-0400 Body temperature 97.7 [degF] Text Entry Free [facility] 06-04-2023 17:07-0400 Body weight 91 kg Text Entry Free [facility] 06-01-2023 12:01-0400 Body height 170 cm MD Jaelyn Jean MD [facility] [place] 06-01-2023 12:01-0400 Body weight 88.6 kg MD Jaelyn Jean MD [facility] 05-30-2023 13:48-0400 Body temperature 98.71 [degF] Riley Crawford MD Work Phone: [facility] 05-30-2023 13:48-0400 Diastolic blood pressure 69 mm[Hg] Riley Crawford MD Work Phone: [employer] 05-30-2023 13:48-0400 Heart rate 71 /min Riley Crawford MD Work Phone: [employer] 05-30-2023 13:48-0400 Respiratory rate 18 /min Riley Crawford MD Work Phone: [employer] 05-30-2023 13:48-0400 SaO2% (BldA) [Mass fraction] 96 % Riley Crawford MD Work Phone: [employer] 05-30-2023 13:48-0400 Systolic blood pressure 118 mm[Hg] Riley Crawford MD Work Phone: [employer] 05-11-2023 20:04-0400 Body height 167.6 cm MD Anne Inman MD [facility] [place] 05-11-2023 20:04-0400 Body mass index (BMI) [Ratio] 31.5 kg/m2 MD Anne Inman MD [employer] 05-11-2023 20:04-0400 Body weight 88.6 kg MD Anne Inman MD [facility] [place] 05-05-2023 22:04-0400 Diastolic blood pressure 77 mm[Hg] [facility] 05-05-2023 22:04-0400 Heart rate 70 /min [facility] 05-05-2023 22:04-0400 Respiratory rate 20 /min [facility] 05-05-2023 22:04-0400 SaO2% (BldA) [Mass fraction] 96 % [facility] 05-05-2023 22:04-0400 Systolic blood pressure 127 mm[Hg] [facility] 05-05-2023 18:15-0400 Body height 167.64 cm [facility] 05-05-2023 18:15-0400 Body temperature 98.2 [degF] [facility] 05-05-2023 18:15-0400 Body weight 90.71 kg [facility] 05-05-2023 11:36-0400 Diastolic blood pressure 81 mm[Hg] [facility] 05-05-2023 11:36-0400 Heart rate 91 /min [facility] 05-05-2023 11:36-0400 Respiratory rate 18 /min [facility] 05-05-2023 11:36-0400 SaO2% (BldA) [Mass fraction] 100 % [facility] 05-05-2023 11:36-0400 Systolic blood pressure 122 mm[Hg] [facility] 05-05-2023 07:53-0400 Body height 167.64 cm [facility] 05-05-2023 07:53-0400 Body temperature 97.8 [degF] [facility] 05-05-2023 07:53-0400 Body weight 99.79 kg [facility] 02-02-2023 20:55-0400 Diastolic blood pressure 94 mm[Hg] Kenn Rodriguez MD Work Phone: [facility] 02-02-2023 20:55-0400 Systolic blood pressure 138 mm[Hg] Kenn Rodriguez MD Work Phone: [facility] 02-02-2023 19:11-0400 Body temperature 98.29 [degF] Kenn Rodriguez MD Work Phone: [facility] 02-02-2023 19:11-0400 Heart rate 56 /min Kenn Rodriguez MD Work Phone: [facility] 02-02-2023 19:11-0400 Respiratory rate 19 /min Kenn Rodriguez MD Work Phone: [facility] 02-02-2023 19:11-0400 SaO2% (BldA) [Mass fraction] 98 % Kenn Rodriguez MD Work Phone: [facility] 02-02-2023 18:34-0400 Body height 167.6 cm Kenn Rodriguez MD Work Phone: [facility] [employer] 02-02-2023 18:34-0400 Body mass index (BMI) [Ratio] 32.28 kg/m2 Kenn Rodriguez MD Work Phone: [facility] [employer] 02-02-2023 18:34-0400 Body weight 90.72 kg Kenn Rodriguez MD Work Phone: [facility] [employer] 02-01-2023 12:33-0400 Diastolic blood pressure 90 mm[Hg] Lila Vera DO Work Phone: [employer] 02-01-2023 12:33-0400 Heart rate 72 /min Lila Vera DO Work Phone: [facility] 02-01-2023 12:33-0400 Respiratory rate 18 /min Lila Vera DO Work Phone: [facility] 02-01-2023 12:33-0400 SaO2% (BldA) [Mass fraction] 99 % Lila Vera DO Work Phone: [facility] 02-01-2023 12:33-0400 Systolic blood pressure 144 mm[Hg] Lila Vera DO Work Phone: [facility] 02-01-2023 07:48-0400 Body mass index (BMI) [Ratio] 32.28 kg/m2 Lila Vera DO Work Phone: [facility] 02-01-2023 07:48-0400 Body temperature 98.1 [degF] Lila Vera DO Work Phone: [facility] [employer] 02-01-2023 07:48-0400 Body weight 90.72 kg Lila Vera DO Work Phone: [facility] 02-01-2023 05:15-0400 Diastolic blood pressure 88 mm[Hg] Susu Collins MD Work Phone: [facility] 02-01-2023 05:15-0400 Heart rate 94 /min Susu Collins MD Work Phone: [facility] [employer] 02-01-2023 05:15-0400 SaO2% (BldA) [Mass fraction] 98 % Susu Collins MD Work Phone: [facility] 02-01-2023 05:15-0400 Systolic blood pressure 138 mm[Hg] Susu Collins MD Work Phone: [facility] 02-01-2023 02:01-0400 Respiratory rate 18 /min Susu Collins MD Work Phone: [facility] 02-01-2023 00:30-0400 Body height 167.6 cm Susu Collins MD Work Phone: [facility] 02-01-2023 00:30-0400 Body mass index (BMI) [Ratio] 32.28 kg/m2 Susu Collins MD Work Phone: [facility] 02-01-2023 00:30-0400 Body weight 90.72 kg Susu Collins MD Work Phone: [facility] 02-01-2023 00:25-0400 Body temperature 97.81 [degF] Susu Collins MD Work Phone: [facility] [facility] 01-29-2023 08:58-0400 Diastolic blood pressure 102 mm[Hg] Text Entry Free [facility] 01-29-2023 08:58-0400 Heart rate 64 /min Text Entry Free [facility] 01-29-2023 08:58-0400 Respiratory rate 16 /min Text Entry Free [facility] 01-29-2023 08:58-0400 SaO2% (BldA) [Mass fraction] 98 % Text Entry Free [facility] 01-29-2023 08:58-0400 Systolic blood pressure 142 mm[Hg] Text Entry Free [facility] 01-29-2023 02:21-0400 Body temperature 97.7 [degF] Text Entry Free [facility] 01-22-2023 18:42-0400 Body height 167.64 cm DO Kay Jimt DO [facility] [place] 01-22-2023 18:42-0400 Body weight 88.6 kg DO Kay Jimt DO [facility] [place] 09-05-2021 17:27-0500 Diastolic blood pressure 79 mm[Hg] Viral Amado Other Phone: [facility] 09-05-2021 17:27-0500 Systolic blood pressure 125 mm[Hg] Viral Amado Other Phone: [facility] 09-05-2021 17:26-0500 Respiratory rate 22 /min Viral Amado Other Phone: [facility] 09-05-2021 16:00-0500 Heart rate 65 /min Viral Amado Other Phone: [facility] 09-05-2021 16:00-0500 SaO2% (BldA) [Mass fraction] 94 % Viral Amado Other Phone: [facility] 09-05-2021 09:48-0500 Body height 170.1 cm Viral Amado Other Phone: [facility] 09-05-2021 09:48-0500 Body temperature 98.24 [degF] Viral Amado Other Phone: [facility] 09-05-2021 09:48-0500 Body weight 88 kg Viral Amado Other Phone: [facility] 08-28-2021 10:24-0500 Diastolic blood pressure 80 mm[Hg] Viral Amado Work Phone: RN-Awavsddcpy-Ezvzt d Work Phone: 08-28-2021 10:24-0500 Heart rate 80 /min Viral Amado Work Phone: OE-Gwzaagykzo-Spwxt d Work Phone: 08-28-2021 10:24-0500 Systolic blood pressure 126 mm[Hg] Viral Amado Work Phone: HZ-Txtwquzrvd-Rgyna d Work Phone: 08-23-2021 16:23-0500 Body height 167.64 cm Viral Amado Work Phone: FQ-Yjezdxbils-Itjht d Work Phone: 08-23-2021 16:23-0500 Body mass index (BMI) [Ratio] 32.93 kg/m2 Viral Amado Work Phone: FC-Jaiemuocap-Uuoss d Work Phone: 08-23-2021 16:23-0500 Body surface area Derived from formula 2.02 m2 Viral Amado Work Phone: XQ-Nndqjuajcp-Iklhq d Work Phone: 08-23-2021 16:23-0500 Body weight 92.53 kg Viral Amado Work Phone: LF-Trswhfsqah-Xbyeo d Work Phone: 08-23-2021 16:23-0500 Diastolic blood pressure 80 mm[Hg] Viral Amado Work Phone: SS-Hzvumpamri-Ybqmp d Work Phone: 08-23-2021 16:23-0500 Heart rate 86 /min Viral Amado Work Phone: YS-Lijupvphho-Ilobb d Work Phone: 08-23-2021 16:23-0500 Respiratory rate 14 /min Viral Amado Work Phone: VI-Rfuvlhklls-Cumxo d Work Phone: 08-23-2021 16:23-0500 SaO2% (BldA) [Mass fraction] 93 % Viral Amado Work Phone: DK-Irghguqoxh-Wlujb d Work Phone: 08-23-2021 16:23-0500 Systolic blood pressure 122 mm[Hg] Viral Amado Work Phone: HZ-Axwfiflmyr-Jvfcg d Work Phone: 08-22-2021 17:21-0500 Body weight 88.6 kg MD Lily Smith MD [facility] 08-20-2021 15:14-0500 Diastolic blood pressure 71 mm[Hg] Viral Amado Other Phone: [facility] 08-20-2021 15:14-0500 Heart rate 67 /min Viral Amado Other Phone: [facility] 08-20-2021 15:14-0500 Respiratory rate 16 /min Viral Amado Other Phone: [facility] 08-20-2021 15:14-0500 SaO2% (BldA) [Mass fraction] 97 % Viral Amado Other Phone: [facility] 08-20-2021 15:14-0500 Systolic blood pressure 102 mm[Hg] Viral Amado Other Phone: [facility] 08-20-2021 08:28-0500 Body height 167.6 cm Viral Amado Other Phone: [facility] 08-20-2021 08:28-0500 Body temperature 98.6 [degF] Viral Amado Other Phone: [facility] 08-20-2021 08:28-0500 Body weight 90 kg Viral Amado Other Phone: [facility] 08-19-2021 15:09-0500 Diastolic blood pressure 72 mm[Hg] Viral Amado Other Phone: [facility] 08-19-2021 15:09-0500 Heart rate 101 /min Viral Amado Other Phone: [facility] 08-19-2021 15:09-0500 Respiratory rate 18 /min Viral Amado Other Phone: [facility] 08-19-2021 15:09-0500 SaO2% (BldA) [Mass fraction] 95 % Viral Amado Other Phone: [facility] 08-19-2021 15:09-0500 Systolic blood pressure 119 mm[Hg] Viral Amado Other Phone: [facility] 08-19-2021 14:06-0500 Body height 167.6 cm Viral Amado Other Phone: [facility] 08-19-2021 14:06-0500 Body temperature 97.88 [degF] Viral Amado Other Phone: [facility] 08-19-2021 14:06-0500 Body weight 90 kg Viral Amado Other Phone: [facility] 08-16-2021 14:30-0500 Body mass index (BMI) [Ratio] 33.1 kg/m2 MD Lily Smith MD [facility] 08-16-2021 14:30-0500 Body weight 93.1 kg MD Lily Smith MD [facility] 08-13-2021 02:11-0500 Diastolic blood pressure 89 mm[Hg] Viral Amado Other Phone: [facility] 08-13-2021 02:11-0500 Heart rate 71 /min Viral Amado Other Phone: [facility] 08-13-2021 02:11-0500 Respiratory rate 20 /min Viral Amado Other Phone: [facility] 08-13-2021 02:11-0500 SaO2% (BldA) [Mass fraction] 96 % Viral Amado Other Phone: [facility] 08-13-2021 02:11-0500 Systolic blood pressure 126 mm[Hg] Viral Amado Other Phone: [facility] 07-28-2021 09:10-0400 Body mass index (BMI) [Ratio] 33.8 kg/m2 DO Christopher Longinow DO [facility] 07-28-2021 09:10-0400 Body weight 95 kg DO Christopher Longinow DO [facility] 07-26-2021 16:16-0400 Body weight 90 kg MD Lily Smith MD [facility] 07-14-2021 12:20-0400 Body weight 84.4 kg MD Callum Bronson MD [facility] 07-13-2021 15:40-0400 Body weight 91.4 kg MD Shell Linares MD [facility] 07-11-2021 18:39-0400 Body mass index (BMI) [Ratio] 32.5 kg/m2 DO Kay Lyly DO [facility] 07-11-2021 18:39-0400 Body weight 91.4 kg DO Kay Lyly DO [facility] 07-10-2021 14:42-0400 Diastolic blood pressure 84 mm[Hg] Viral Amado Work Phone: [facility] Work Phone: 07-10-2021 14:42-0400 Systolic blood pressure 124 mm[Hg] Viral Amado Work Phone: [facility] Work Phone: 07-10-2021 14:41-0400 Body temperature 97.5 [degF] Viral Amado Work Phone: [facility] Work Phone: 07-10-2021 14:41-0400 Diastolic blood pressure 81 mm[Hg] Viral Amado Work Phone: [facility] Work Phone: 07-10-2021 14:41-0400 Heart rate 66 /min Viral Amado Work Phone: [facility] Work Phone: 07-10-2021 14:41-0400 Respiratory rate 18 /min Viral Amado Work Phone: [facility] Work Phone: 07-10-2021 14:41-0400 SaO2% (BldA) [Mass fraction] 97 % Viral Amado Work Phone: [facility] Work Phone: 07-10-2021 14:41-0400 Systolic blood pressure 128 mm[Hg] Viral Amado Work Phone: [facility] Work Phone: 07-10-2021 14:41-0400 8 1 Viral mAado Work Phone: [facility] Work Phone: Comment on above: [employer] 07-10-2021 12:01-0400 Body weight 91.4 kg MD Kristen Ambrocio MD [facility] 07-05-2021 10:28-0400 Diastolic blood pressure 86 mm[Hg] Viral Amado Other Phone: [facility] 07-05-2021 10:28-0400 Systolic blood pressure 137 mm[Hg] Viral Amado Other Phone: [facility] 07-05-2021 07:16-0400 Body temperature 98.06 [degF] Viral Amado Other Phone: [facility] 07-05-2021 07:16-0400 Heart rate 57 /min Viral Amado Other Phone: [facility] 07-05-2021 07:16-0400 Respiratory rate 16 /min Viral Amado Other Phone: [facility] 07-05-2021 07:16-0400 SaO2% (BldA) [Mass fraction] 95 % Viral Amado Other Phone: [facility] 07-05-2021 03:53-0400 Body height 165.1 cm Viral Aneudy Other Phone: [facility] 07-05-2021 03:53-0400 Body weight 86.4 kg Viral Amado Other Phone: [facility] 06-28-2021 09:34-0400 Diastolic blood pressure 77 mm[Hg] Viral Amado Work Phone: [facility] Work Phone: 06-28-2021 09:34-0400 Systolic blood pressure 113 mm[Hg] Viral Amado Work Phone: [facility] Work Phone: 06-28-2021 09:32-0400 Body height 167.64 cm Viral Amado Work Phone: [facility] Work Phone: 06-28-2021 09:32-0400 Body mass index (BMI) [Ratio] 31.47 kg/m2 Viral Amado Work Phone: [facility] Work Phone: 06-28-2021 09:32-0400 Body surface area Derived from formula 1.98 m2 Viral Amado Work Phone: [facility] Work Phone: 06-28-2021 09:32-0400 Body weight 88.45 kg Viral Amado Work Phone: [facility] Work Phone: 06-28-2021 09:32-0400 Diastolic blood pressure 68 mm[Hg] Viral Amado Work Phone: [facility] Work Phone: 06-28-2021 09:32-0400 Heart rate 91 /min Viral Amado Work Phone: [facility] Work Phone: 06-28-2021 09:32-0400 Respiratory rate 14 /min Viral Amado Work Phone: [facility] Work Phone: 06-28-2021 09:32-0400 SaO2% (BldA) [Mass fraction] 96 % Viral Amado Work Phone: [facility] Work Phone: 06-28-2021 09:32-0400 Systolic blood pressure 110 mm[Hg] Viral Amado Work Phone: [facility] Work Phone: 06-28-2021 09:32-0400 0 1 Viral Amado Work Phone: [facility] Work Phone: Comment on above: [employer] 06-27-2021 01:07-0400 Diastolic blood pressure 83 mm[Hg] Viral Amado Other Phone: [facility] 06-27-2021 01:07-0400 Heart rate 73 /min Viral Aneudy Other Phone: [facility] 06-27-2021 01:07-0400 Respiratory rate 18 /min Viral Amado Other Phone: [facility] 06-27-2021 01:07-0400 SaO2% (BldA) [Mass fraction] 100 % Viral Amado Other Phone: [facility] 06-27-2021 01:07-0400 Systolic blood pressure 129 mm[Hg] Viral Amado Other Phone: [facility] 06-26-2021 16:46-0400 Body height 175.2 cm Viral Amado Other Phone: [facility] 06-26-2021 16:46-0400 Body temperature 97.88 [degF] Viral Amado Other Phone: [facility] 06-26-2021 16:46-0400 Body weight 76 kg Viral Amado Other Phone: [facility] 06-23-2021 08:06-0400 Body mass index (BMI) [Ratio] 32.77 kg/m2 Viral Amado Work Phone: [facility] [employer] [facility] Work Phone: 06-23-2021 08:06-0400 Body surface area Derived from formula 2.01 m2 Viral Amado Work Phone: [facility] [employer] [facility] Work Phone: 06-23-2021 08:06-0400 Body weight 92.08 kg Viral Amado Work Phone: [facility] [employer] [facility] Work Phone: 06-23-2021 08:06-0400 Diastolic blood pressure 76 mm[Hg] Viral Amado Work Phone: [facility] [employer] [facility] Work Phone: 06-23-2021 08:06-0400 Heart rate 76 /min Viral Amado Work Phone: [facility] [employer] [facility] Work Phone: 06-23-2021 08:06-0400 Systolic blood pressure 136 mm[Hg] Viral Amado Work Phone: [facility] Work Phone: 06-20-2021 14:03-0400 Diastolic blood pressure 50 mm[Hg] Viral Amado Work Phone: [facility] Work Phone: 06-20-2021 14:03-0400 Systolic blood pressure 80 mm[Hg] Viral Brennon Amado Work Phone: [facility] Work Phone: 06-20-2021 14:02-0400 Body temperature 97.1 [degF] Viral Brennon Amado Work Phone: [facility] Work Phone: 06-20-2021 14:02-0400 Diastolic blood pressure 70 mm[Hg] Viral Brennon Amado Work Phone: [facility] Work Phone: 06-20-2021 14:02-0400 Heart rate 84 /min Viral Amado Work Phone: [facility] Work Phone: 06-20-2021 14:02-0400 Respiratory rate 14 /min Viral S Aneudy Work Phone: [facility] Work Phone: 06-20-2021 14:02-0400 SaO2% (BldA) [Mass fraction] 98 % Viral Amado Work Phone: [facility] Work Phone: 06-20-2021 14:02-0400 Systolic blood pressure 107 mm[Hg] Viral Amado Work Phone: [facility] Work Phone: 06-20-2021 14:02-0400 0 1 Viral Amado Work Phone: [facility] Work Phone: Comment on above: [employer] 06-20-2021 07:46-0400 Body mass index (BMI) [Ratio] 31.8 kg/m2 MD Lily Smith MD [facility] 06-20-2021 07:46-0400 Body weight 89.6 kg MD Lily Smith MD [facility] 06-19-2021 16:16-0400 Body weight 98.3 kg MD Callum Bronson MD [facility] 06-18-2021 03:54-0400 Body mass index (BMI) [Ratio] 29.1 kg/m2 MD Josh Darnell MD [facility] 06-18-2021 03:54-0400 Body weight 87 kg MD Josh Darnell MD [facility] 06-14-2021 13:30-0400 Diastolic blood pressure 78 mm[Hg] Viral Amado Other Phone: [facility] 06-14-2021 13:30-0400 Systolic blood pressure 145 mm[Hg] Viral Amado Other Phone: [facility] 06-14-2021 12:57-0400 Heart rate 70 /min Viral Amado Other Phone: [facility] 06-14-2021 12:57-0400 Respiratory rate 18 /min Viral Amado Other Phone: [facility] 06-14-2021 12:57-0400 SaO2% (BldA) [Mass fraction] 97 % Viral Amado Other Phone: [facility] 06-14-2021 09:34-0400 Body height 167.6 cm Viral Amado Other Phone: [facility] 06-14-2021 09:34-0400 Body temperature 97.52 [degF] Viral Amado Other Phone: [facility] 06-14-2021 09:34-0400 Body weight 86 kg Viral Amado Other Phone: [facility] 06-12-2021 10:05-0400 Body mass index (BMI) [Ratio] 30.7 kg/m2 MD Callum Bronson MD [facility] 06-12-2021 10:05-0400 Body weight 86.4 kg MD Callum Bronson MD [facility] 06-07-2021 16:55-0400 Diastolic blood pressure 81 mm[Hg] Viral Amado Other Phone: [facility] 06-07-2021 16:55-0400 Heart rate 70 /min Viral Amado Other Phone: [facility] 06-07-2021 16:55-0400 Respiratory rate 16 /min Viral Amado Other Phone: [facility] 06-07-2021 16:55-0400 SaO2% (BldA) [Mass fraction] 98 % Viral Amado Other Phone: [facility] 06-07-2021 16:55-0400 Systolic blood pressure 116 mm[Hg] Viral Amado Other Phone: [facility] 06-07-2021 10:47-0400 Body height 167.6 cm Viral Amado Other Phone: [facility] 06-07-2021 10:47-0400 Body temperature 98.06 [degF] Vrial Amado Other Phone: [facility] 06-07-2021 10:47-0400 Body weight 84 kg Viral Amado Other Phone: [facility] 06-03-2021 02:55-0400 Diastolic blood pressure 84 mm[Hg] Viral Amado Other Phone: [facility] 06-03-2021 02:55-0400 Heart rate 74 /min Viral Amado Other Phone: [facility] 06-03-2021 02:55-0400 Respiratory rate 16 /min Viral Amado Other Phone: [facility] 06-03-2021 02:55-0400 SaO2% (BldA) [Mass fraction] 98 % Viral Amado Other Phone: [facility] 06-03-2021 02:55-0400 Systolic blood pressure 130 mm[Hg] Viral Amado Other Phone: [facility] 05-31-2021 15:41-0400 Diastolic blood pressure 86 mm[Hg] Viral Amado Other Phone: [facility] 05-31-2021 15:41-0400 Heart rate 69 /min Viral Amado Other Phone: [facility] 05-31-2021 15:41-0400 Respiratory rate 16 /min Viral Amado Other Phone: [facility] 05-31-2021 15:41-0400 SaO2% (BldA) [Mass fraction] 98 % Viral Amado Other Phone: [facility] 05-31-2021 15:41-0400 Systolic blood pressure 129 mm[Hg] Viral Amado Other Phone: [facility] 05-31-2021 08:58-0400 Body height 167.6 cm Viral mAado Other Phone: [facility] 05-31-2021 08:58-0400 Body temperature 96.98 [degF] Viral Amado Other Phone: [facility] 05-31-2021 08:58-0400 Body weight 84 kg Viral Amado Other Phone: [facility] 05-31-2021 04:29-0400 Body height 167.6 cm Viral Amado Other Phone: [facility] 05-31-2021 04:29-0400 Body temperature 96.8 [degF] Viral Amado Other Phone: [facility] 05-31-2021 04:29-0400 Body weight 85 kg Viral Amado Other Phone: [facility] 05-31-2021 04:29-0400 Diastolic blood pressure 105 mm[Hg] Viral Amado Other Phone: [facility] 05-31-2021 04:29-0400 Heart rate 68 /min Viral Amado Other Phone: [facility] 05-31-2021 04:29-0400 Respiratory rate 16 /min Viral Amado Other Phone: [facility] 05-31-2021 04:29-0400 SaO2% (BldA) [Mass fraction] 95 % Viral Amado Other Phone: [facility] 05-31-2021 04:29-0400 Systolic blood pressure 159 mm[Hg] Viral Amado Other Phone: [facility] 05-27-2021 11:20-0400 Diastolic blood pressure 88 mm[Hg] Viral Amado Other Phone: [facility] 05-27-2021 11:20-0400 Heart rate 66 /min Viral Amado Other Phone: [facility] 05-27-2021 11:20-0400 SaO2% (BldA) [Mass fraction] 100 % Viral Amado Other Phone: [facility] 05-27-2021 11:20-0400 Systolic blood pressure 134 mm[Hg] Viral Amado Other Phone: [facility] 05-27-2021 08:12-0400 Body height 167.6 cm Viral Amado Other Phone: [facility] 05-27-2021 08:12-0400 Body temperature 97.88 [degF] Viral Amado Other Phone: [facility] 05-27-2021 08:12-0400 Body weight 86 kg Viral Amado Other Phone: [facility] 05-27-2021 08:12-0400 Respiratory rate 20 /min Viral Amado Other Phone: [facility] 05-25-2021 12:50-0400 Body height 177.8 cm Viral Aneudy Other Phone: [facility] 05-25-2021 12:50-0400 Body temperature 97.34 [degF] Viral Amado Other Phone: [facility] 05-25-2021 12:50-0400 Body weight 85 kg Viral Aneudy Other Phone: [facility] 05-25-2021 12:50-0400 Diastolic blood pressure 90 mm[Hg] Viral Amado Other Phone: [facility] 05-25-2021 12:50-0400 Heart rate 67 /min Viral Amado Other Phone: [facility] 05-25-2021 12:50-0400 Respiratory rate 18 /min Viral Aneudy Other Phone: [facility] 05-25-2021 12:50-0400 SaO2% (BldA) [Mass fraction] 99 % Viral Aneudy Other Phone: [facility] 05-25-2021 12:50-0400 Systolic blood pressure 136 mm[Hg] Viral Amado Other Phone: [facility] 05-16-2021 14:25-0400 Body mass index (BMI) [Ratio] 30.6 kg/m2 Other PCP [facility] 05-16-2021 14:25-0400 Body weight 86.2 kg Other PCP S 05-11-2021 14:38-0400 Body height 167.64 cm Viral Amado [facility] Work Phone: 05-11-2021 14:38-0400 Body mass index (BMI) [Ratio] 30.67 kg/m2 [facility] Work Phone: 05-11-2021 14:38-0400 Body surface area Derived from formula 1.96 m2 Viral Amado [facility] Work Phone: 05-11-2021 14:38-0400 Body weight 86.18 kg Viral Amado [facility] Work Phone: 05-10-2021 14:05-0400 Body weight 89 kg MD Shell Linares MD [facility] 05-06-2021 10:12-0400 Body mass index (BMI) [Ratio] 26.7 kg/m2 MD Thang Caballero MD [facility] 05-06-2021 10:12-0400 Body weight 87 kg MD Thang Caballero MD [facility] 04-25-2021 11:11-0400 Diastolic blood pressure 85 mm[Hg] Viral Amado Work Phone: [facility] Work Phone: 04-25-2021 11:11-0400 Heart rate 71 /min Viral Amado Work Phone: [facility] [facility] [...] area Derived from formula 1.96 m2 Viral Amado Work Phone: [facility] Work Phone: 04-25-2021 11:07-0400 Body temperature 97.8 [degF] Viral Amado Work Phone: [facility] Work Phone: 04-25-2021 11:07-0400 Body weight 86.32 kg Viral Brennon Amado Work Phone: [facility] Work Phone: 04-25-2021 11:07-0400 Diastolic blood pressure 85 mm[Hg] Viral Amado Work Phone: [facility] Work Phone: 04-25-2021 11:07-0400 Heart rate 70 /min Viral Amado [facility] [place] [facility] Work Phone: 04-25-2021 11:07-0400 Respiratory rate 18 /min Viral Amado [facility] Work Phone: 04-25-2021 11:07-0400 Systolic blood pressure 127 mm[Hg] Viral Willett Aneudy Work Phone: [facility] [place] [facility] Work Phone: 04-21-2021 14:14-0400 Diastolic blood pressure 78 mm[Hg] Viral Amado Other Phone: [facility] 04-21-2021 14:14-0400 Heart rate 66 /min Viral Amado Other Phone: [facility] 04-21-2021 14:14-0400 Respiratory rate 17 /min Viral Amado Other Phone: [facility] 04-21-2021 14:14-0400 SaO2% (BldA) [Mass fraction] 100 % Viral Amado Other Phone: [facility] 04-21-2021 14:14-0400 Systolic blood pressure 122 mm[Hg] Viral Amado Other Phone: [facility] 04-21-2021 12:51-0400 Body height 167.6 cm Viral Amado Other Phone: [facility] 04-21-2021 12:51-0400 Body temperature 97.34 [degF] Viral Amado Other Phone: [facility] 04-21-2021 12:51-0400 Body weight 84.5 kg Viral Amado Other Phone: [facility] 04-18-2021 18:00-0400 Body height 167.6 cm Viral Amado Other Phone: [facility] 04-18-2021 18:00-0400 Body temperature 99.14 [degF] Viral Amado Other Phone: [facility] 04-18-2021 18:00-0400 Body weight 84.8 kg Viral Amado Other Phone: [facility] 04-18-2021 18:00-0400 Diastolic blood pressure 81 mm[Hg] Viral Amado Other Phone: [facility] 04-18-2021 18:00-0400 Heart rate 94 /min Viral Amado Other Phone: [facility] 04-18-2021 18:00-0400 Respiratory rate 18 /min Viral Amado Other Phone: [facility] 04-18-2021 18:00-0400 SaO2% (BldA) [Mass fraction] 95 % Viral Amado Other Phone: [facility] 04-18-2021 18:00-0400 Systolic blood pressure 110 mm[Hg] Viral Amado Other Phone: [facility] 04-15-2021 16:00-0400 Diastolic blood pressure 98 mm[Hg] Viral Amado Other Phone: [facility] 04-15-2021 16:00-0400 Heart rate 88 /min Viral Amado Other Phone: [facility] 04-15-2021 16:00-0400 Respiratory rate 18 /min Viral Amado Other Phone: [facility] 04-15-2021 16:00-0400 SaO2% (BldA) [Mass fraction] 100 % Viral Amado Other Phone: [facility] 04-15-2021 16:00-0400 Systolic blood pressure 141 mm[Hg] Viral mAado Other Phone: [facility] 04-15-2021 14:14-0400 Body height 172.7 cm Viral Amado Other Phone: [facility] 04-15-2021 14:14-0400 Body temperature 98.06 [degF] Viral Amado Other Phone: [facility] 04-15-2021 14:14-0400 Body weight 85 kg Viral Amado Other Phone: [facility] 04-13-2021 23:30-0400 Diastolic blood pressure 98 mm[Hg] Viral Amado Other Phone: [facility] 04-13-2021 23:30-0400 Heart rate 73 /min Viral Amado Other Phone: [facility] 04-13-2021 23:30-0400 Respiratory rate 14 /min Viral Amado Other Phone: [facility] 04-13-2021 23:30-0400 SaO2% (BldA) [Mass fraction] 96 % Viral Amado Other Phone: [facility] 04-13-2021 23:30-0400 Systolic blood pressure 143 mm[Hg] Viral Amado Other Phone: [facility] 04-13-2021 17:30-0400 Body height 167.6 cm Viral Amado Other Phone: [facility] 04-13-2021 17:30-0400 Body temperature 97.16 [degF] Viral Amado Other Phone: [facility] 04-13-2021 17:30-0400 Body weight 86.3 kg Viral Amado Other Phone: [facility] 04-13-2021 01:32-0400 Diastolic blood pressure 98 mm[Hg] Viral Amado Other Phone: [facility] 04-13-2021 01:32-0400 Heart rate 55 /min Viral Amado Other Phone: [facility] 04-13-2021 01:32-0400 Respiratory rate 16 /min Viral Amado Other Phone: [facility] 04-13-2021 01:32-0400 SaO2% (BldA) [Mass fraction] 100 % Viral Amado Other Phone: [facility] 04-13-2021 01:32-0400 Systolic blood pressure 130 mm[Hg] Viral Amado Other Phone: [facility] 04-12-2021 20:24-0400 Body height 167.6 cm Viral Amado Other Phone: [facility] 04-12-2021 20:24-0400 Body temperature 97.34 [degF] Viral Amado Other Phone: [facility] 04-12-2021 20:24-0400 Body weight 85 kg Viral Amado Other Phone: [facility] 04-12-2021 11:26-0400 Body height 167.64 cm Viral Amado Work Phone: [facility] [facility] Work Phone: 04-12-2021 11:26-0400 Body mass index (BMI) [Ratio] 30.51 kg/m2 Viral Amado Work Phone: [facility] [facility] Work Phone: 04-12-2021 11:26-0400 Body surface area Derived from formula 1.95 m2 Viral Amado Work Phone: [facility] [facility] Work Phone: 04-12-2021 11:26-0400 Body weight 85.73 kg Viral Amado Work Phone: [facility] [facility] Work Phone: 04-12-2021 11:26-0400 Diastolic blood pressure 76 mm[Hg] Viral Amado Work Phone: [facility] [facility] Work Phone: 04-12-2021 11:26-0400 Diastolic blood pressure 79 mm[Hg] Viral Willett Aneudy Work Phone: [facility] [facility] Work Phone: 04-12-2021 11:26-0400 Heart rate 90 /min Viral Amado Work Phone: [facility] [facility] Work Phone: 04-12-2021 11:26-0400 SaO2% (BldA) [Mass fraction] 98 % Viral Amado Work Phone: [facility] [facility] Work Phone: 04-12-2021 11:26-0400 Systolic blood pressure 113 mm[Hg] Viral Amado Work Phone: [facility] [facility] Work Phone: 04-12-2021 11:26-0400 Systolic blood pressure 119 mm[Hg] Viral Amado Work Phone: [facility] [facility] Work Phone: 04-11-2021 19:16-0400 Body mass index (BMI) [Ratio] 30.2 kg/m2 DO Christopher Longinow DO [facility] 04-11-2021 19:16-0400 Body weight 85 kg DO Christopher Longinow DO [facility] 04-10-2021 14:33-0400 Body mass index (BMI) [Ratio] 21.6 kg/m2 MD Lily Smith MD [facility] 04-10-2021 14:33-0400 Body weight 85 kg MD Lily Smiht MD [facility] 04-08-2021 11:04-0400 Body temperature 95.9 [degF] Viral Amado Other Phone: [facility] 04-08-2021 11:04-0400 Diastolic blood pressure 68 mm[Hg] Viral Amado Other Phone: [facility] 04-08-2021 11:04-0400 Heart rate 64 /min Viral Amado Other Phone: [facility] 04-08-2021 11:04-0400 Respiratory rate 16 /min Viral Amado Other Phone: [facility] 04-08-2021 11:04-0400 SaO2% (BldA) [Mass fraction] 100 % Viral Amado Other Phone: [facility] 04-08-2021 11:04-0400 Systolic blood pressure 128 mm[Hg] Viral Amado Other Phone: [facility] 04-04-2021 17:23-0400 Diastolic blood pressure 98 mm[Hg] Viral Amado Other Phone: [facility] 04-04-2021 17:23-0400 Heart rate 72 /min Viral Amado Other Phone: [facility] 04-04-2021 17:23-0400 Respiratory rate 18 /min Viral Amado Other Phone: [facility] 04-04-2021 17:23-0400 SaO2% (BldA) [Mass fraction] 97 % Viral Amado Other Phone: [facility] 04-04-2021 17:23-0400 Systolic blood pressure 125 mm[Hg] Viral Amado Other Phone: [facility] 04-04-2021 11:34-0400 Body height 167.6 cm Viral Amado Other Phone: [facility] 04-04-2021 11:34-0400 Body temperature 99.14 [degF] Viral Amado Other Phone: [facility] 04-04-2021 11:34-0400 Body weight 85 kg Viral Amado Other Phone: [facility] 03-30-2021 14:30-0400 Diastolic blood pressure 90 mm[Hg] [facility] Phone: 03-30-2021 14:30-0400 Heart rate 52 /min [facility] Phone: 03-30-2021 14:30-0400 Respiratory rate 18 /min [facility] Phone: 03-30-2021 14:30-0400 SaO2% (BldA) [Mass fraction] 100 % [facility] Phone: 03-30-2021 14:30-0400 Systolic blood pressure 123 mm[Hg] [facility] Phone: 03-30-2021 13:00-0400 Body mass index (BMI) [Ratio] 30.02 kg/m2 [facility] Phone: 03-30-2021 13:00-0400 Body temperature 97.9 [degF] [facility] Phone: 03-30-2021 13:00-0400 Body weight 84.37 kg [facility] Phone: 03-30-2021 12:05-0400 Diastolic blood pressure 70 mm[Hg] [place] [facility] Phone: 03-30-2021 12:05-0400 Heart rate 74 /min [place] [facility] Phone: 03-30-2021 12:05-0400 Respiratory rate 18 /min [place] [facility] Phone: 03-30-2021 12:05-0400 SaO2% (BldA) [Mass fraction] 100 % [place] [facility] Phone: 03-30-2021 12:05-0400 Systolic blood pressure 103 mm[Hg] [place] [facility] Phone: 03-29-2021 21:17-0400 Diastolic blood pressure 81 mm[Hg] [facility] Phone: 03-29-2021 21:17-0400 Heart rate 59 /min [facility] Phone: 03-29-2021 21:17-0400 Respiratory rate 18 /min [facility] Phone: 03-29-2021 21:17-0400 SaO2% (BldA) [Mass fraction] 100 % [facility] Phone: 03-29-2021 21:17-0400 Systolic blood pressure 118 mm[Hg] [facility] Phone: 03-29-2021 18:42-0400 Body height 167.6 cm [facility] Phone: 03-29-2021 18:42-0400 Body mass index (BMI) [Ratio] 30.02 kg/m2 [facility] Phone: 03-29-2021 18:42-0400 Body temperature 98.4 [degF] [facility] Phone: 03-29-2021 18:42-0400 Body weight 84.37 kg [facility] Phone: 03-24-2021 02:31-0400 Diastolic blood pressure 75 mm[Hg] Viral Amado Other Phone: [facility] 03-24-2021 02:31-0400 Heart rate 75 /min Viral Amado Other Phone: [facility] 03-24-2021 02:31-0400 Respiratory rate 18 /min Viral Amado Other Phone: [facility] 03-24-2021 02:31-0400 SaO2% (BldA) [Mass fraction] 98 % Viral Amado Other Phone: [facility] 03-24-2021 02:31-0400 Systolic blood pressure 138 mm[Hg] Viral Amado Other Phone: [facility] 03-23-2021 15:49-0400 Body height 167.64 cm Viral Amado Work Phone: [facility]brkz[facility]tst[facility] Work Phone: 03-23-2021 15:49-0400 Body mass index (BMI) [Ratio] 30.34 kg/m2 Viral Amado Work Phone: [facility]Hjhkljnqwf-Acaje [facility] Work Phone: 03-23-2021 15:49-0400 Body surface area Derived from formula 1.95 m2 Viral Amado Work Phone: [facility]-Hcmnpzznuf-Vifki [facility] Work Phone: 03-23-2021 15:49-0400 Body weight 85.28 kg Viral Amado Work Phone: TV-Obfpjamozn-Siwgf [facility] Work Phone: 03-23-2021 15:49-0400 Diastolic blood pressure 92 mm[Hg] Viral Amado Work Phone: YG-Odagksswgq-Fpmxx [facility] Work Phone: 03-23-2021 15:49-0400 Heart rate 90 /min Viral Amado Work Phone: ER-Pjinjsksgf-Abllf [facility] [address] Work Phone: 03-23-2021 15:49-0400 SaO2% (BldA) [Mass fraction] 98 % Viral Amado Work Phone: ZB-Ouyqrpxcjh-Djjfk [facility] Work Phone: 03-23-2021 15:49-0400 Systolic blood pressure 140 mm[Hg] Viral Amado Work Phone: BK-Kcxzpqjytd-Mrzjg [facility] Work Phone: 03-22-2021 04:58-0400 Body mass index (BMI) [Ratio] 32.2 kg/m2 MD Jax Casiano MD [facility] 03-22-2021 04:58-0400 Body weight 90.5 kg MD Jax Casiano MD [facility] 03-18-2021 16:28-0400 Body mass index (BMI) [Ratio] 30.03 kg/m2 MD Jean-Paul Ascencio MD [facility] 03-18-2021 16:28-0400 Body weight 84.4 kg MD Jean-Paul Ascencio MD [facility] 03-15-2021 14:42-0400 Body mass index (BMI) [Ratio] 29.86 kg/m2 Viral Amado Work Phone: [facility] [employer] Work Phone: 03-15-2021 14:42-0400 Body surface area Derived from formula 1.93 m2 Viral Amado Work Phone: [facility] [employer] Work Phone: 03-15-2021 14:42-0400 Body weight 83.92 kg Viral Amado Work Phone: [facility] [employer] Work Phone: 03-15-2021 14:42-0400 Diastolic blood pressure 74 mm[Hg] Viral Amado Work Phone: [facility] [employer] Work Phone: 03-15-2021 14:42-0400 Heart rate 89 /min Viral Amado Work Phone: [facility] [employer] Work Phone: 03-15-2021 14:42-0400 Systolic blood pressure 121 mm[Hg] Viral Amado Work Phone: [facility] [employer] Work Phone: 03-15-2021 02:09-0400 Diastolic blood pressure 90 mm[Hg] No Pcp Required [facility] 03-15-2021 02:09-0400 Heart rate 67 /min No Pcp Required [facility] 03-15-2021 02:09-0400 Respiratory rate 18 /min No Pcp Required [facility] 03-15-2021 02:09-0400 SaO2% (BldA) [Mass fraction] 98 % No Pcp Required [facility] 03-15-2021 02:09-0400 Systolic blood pressure 132 mm[Hg] No Pcp Required [facility] 03-02-2021 16:00-0400 Diastolic blood pressure 68 mm[Hg] Viral Amado Other Phone: [facility] 03-02-2021 16:00-0400 Heart rate 74 /min Viral Amado Other Phone: [facility] 03-02-2021 16:00-0400 Respiratory rate 14 /min Viral Amado Other Phone: [facility] 03-02-2021 16:00-0400 SaO2% (BldA) [Mass fraction] 100 % Viral Amado Other Phone: [facility] 03-02-2021 16:00-0400 Systolic blood pressure 102 mm[Hg] Viral Amado Other Phone: [facility] 03-02-2021 09:29-0400 Body height 172.7 cm Viral Amado Other Phone: [facility] 03-02-2021 09:29-0400 Body temperature 98.06 [degF] Viral Amado Other Phone: [facility] 03-02-2021 09:29-0400 Body weight 84.5 kg Viral Amado Other Phone: [facility] 02-28-2021 12:56-0400 Body height 172.7 cm Pcp Unknown [facility] 02-28-2021 12:56-0400 Body temperature 97.16 [degF] Pcp Unknown [facility] 02-28-2021 12:56-0400 Body weight 79 kg Pcp Unknown [facility] 02-28-2021 12:56-0400 Diastolic blood pressure 82 mm[Hg] Pcp Unknown [facility] 02-28-2021 12:56-0400 Heart rate 64 /min Pcp Unknown [facility] 02-28-2021 12:56-0400 Respiratory rate 17 /min Pcp Unknown [facility] 02-28-2021 12:56-0400 SaO2% (BldA) [Mass fraction] 98 % Pcp Unknown [facility] 02-28-2021 12:56-0400 Systolic blood pressure 134 mm[Hg] Pcp Unknown [facility] 02-27-2021 12:45-0400 Diastolic blood pressure 88 mm[Hg] Pcp Unknown [facility] 02-27-2021 12:45-0400 Heart rate 64 /min Pcp Unknown [facility] 02-27-2021 12:45-0400 Respiratory rate 17 /min Pcp Unknown [facility] [facility] 02-27-2021 12:45-0400 SaO2% (BldA) [Mass fraction] 100 % Pcp Unknown [facility] 02-27-2021 12:45-0400 Systolic blood pressure 120 mm[Hg] Pcp Unknown [facility] 02-27-2021 09:24-0400 Body height 167.6 cm Pcp Unknown [facility] 02-27-2021 09:24-0400 Body temperature 97.52 [degF] Pcp Unknown [facility] 02-27-2021 09:24-0400 Body weight 84.4 kg Pcp Unknown [facility] 02-27-2021 02:19-0400 Body mass index (BMI) [Ratio] 30.1 kg/m2 MD Josh Darnell MD [facility] 02-27-2021 02:19-0400 Body weight 84.6 kg MD Josh Darnell MD [facility] 02-26-2021 18:33-0400 Body mass index (BMI) [Ratio] 30 kg/m2 MD Roberth Ingram MD [facility] 02-26-2021 18:33-0400 Body weight 84.5 kg MD Roberth Ingram MD [facility] 02-23-2021 15:17-0400 Diastolic blood pressure 61 mm[Hg] Pcp Unknown [facility] 02-23-2021 15:17-0400 Heart rate 60 /min Pcp Unknown [facility] 02-23-2021 15:17-0400 Respiratory rate 16 /min Pcp Unknown [facility] 02-23-2021 15:17-0400 SaO2% (BldA) [Mass fraction] 99 % Pcp Unknown [facility] 02-23-2021 15:17-0400 Systolic blood pressure 108 mm[Hg] Pcp Unknown [facility] 02-23-2021 14:00-0400 Body height 167.6 cm Pcp Unknown [facility] 02-23-2021 14:00-0400 Body temperature 97.34 [degF] Pcp Unknown [facility] 02-23-2021 14:00-0400 Body weight 84.1 kg Pcp Unknown [facility] 02-22-2021 14:10-0400 Body height 167.64 cm Referring Provider Unknown [facility] Work Phone: 02-22-2021 14:10-0400 Body mass index (BMI) [Ratio] 30.02 kg/m2 Referring Provider Unknown [facility] Work Phone: 02-22-2021 14:10-0400 Body surface area Derived from formula 1.94 m2 Referring Provider Unknown [facility] Work Phone: 02-22-2021 14:10-0400 Body temperature 97.3 [degF] Referring Provider Unknown [facility] Work Phone: 02-22-2021 14:10-0400 Body weight 84.37 kg Referring Provider Unknown [facility] Work Phone: 02-22-2021 14:10-0400 Diastolic blood pressure 69 mm[Hg] Referring Provider Unknown [facility] Work Phone: 02-22-2021 14:10-0400 Heart rate 102 /min Referring Provider Unknown [facility] Work Phone: 02-22-2021 14:10-0400 Respiratory rate 18 /min Referring Provider Unknown [facility] Work Phone: 02-22-2021 14:10-0400 SaO2% (BldA) [Mass fraction] 98 % Referring Provider Unknown [facility] Work Phone: 02-22-2021 14:10-0400 Systolic blood pressure 101 mm[Hg] Referring Provider Unknown [facility] Work Phone: 02-22-2021 14:10-0400 3 1 Referring Provider Unknown [facility] Work Phone: Comment on above: [facility] 02-19-2021 12:42-0400 Body mass index (BMI) [Ratio] 35.2 kg/m2 DO Catalinocaitlin Mata DO [facility] 02-19-2021 12:42-0400 Body weight 87.5 kg DO Catalino Joseyki DO [facility] 02-19-2021 02:39-0400 Body mass index (BMI) [Ratio] 31.1 kg/m2 MD Josh Darnell MD [facility] 02-19-2021 02:39-0400 Body weight 87.5 kg MD Josh Darnell MD [facility] 02-18-2021 19:31-0400 Diastolic blood pressure 56 mm[Hg] Pcp Unknown [facility] 02-18-2021 19:31-0400 Heart rate 82 /min Pcp Unknown [facility] 02-18-2021 19:31-0400 Respiratory rate 20 /min Pcp Unknown [facility] 02-18-2021 19:31-0400 SaO2% (BldA) [Mass fraction] 98 % Pcp Unknown [facility] 02-18-2021 19:31-0400 Systolic blood pressure 107 mm[Hg] Pcp Unknown [facility] 02-18-2021 17:48-0400 Body height 167.6 cm Pcp Unknown [facility] 02-18-2021 17:48-0400 Body temperature 98.06 [degF] Pcp Unknown [facility] 02-18-2021 17:48-0400 Body weight 84 kg Pcp Unknown [facility] 02-15-2021 15:07-0400 Diastolic blood pressure 63 mm[Hg] Pcp Unknown [facility] 02-15-2021 15:07-0400 Heart rate 85 /min Pcp Unknown [facility] 02-15-2021 15:07-0400 Respiratory rate 18 /min Pcp Unknown [facility] 02-15-2021 15:07-0400 SaO2% (BldA) [Mass fraction] 99 % Pcp Unknown [facility] 02-15-2021 15:07-0400 Systolic blood pressure 136 mm[Hg] Pcp Unknown [facility] 02-15-2021 13:25-0400 Body height 154.9 cm Pcp Unknown [facility] 02-15-2021 13:25-0400 Body temperature 97.7 [degF] Pcp Unknown [facility] 02-15-2021 13:25-0400 Body weight 81 kg Pcp Unknown [facility] 02-15-2021 09:33-0400 Body mass index (BMI) [Ratio] 29.1 kg/m2 MD Melvi Schroeder MD [facility] 02-15-2021 09:33-0400 Body weight 87 kg MD Melvi Schroeder MD [facility] 02-14-2021 20:06-0400 Body mass index (BMI) [Ratio] 29.1 kg/m2 MD Roberth Ingram MD [facility] 02-14-2021 20:06-0400 Body weight 87.1 kg MD Roberth Ingram MD [facility] 02-14-2021 01:11-0400 Diastolic blood pressure 65 mm[Hg] Pcp Unknown [facility] 02-14-2021 01:11-0400 Heart rate 76 /min Pcp Unknown [facility] 02-14-2021 01:11-0400 Respiratory rate 18 /min Pcp Unknown [facility] 02-14-2021 01:11-0400 SaO2% (BldA) [Mass fraction] 98 % Pcp Unknown [facility] 02-14-2021 01:11-0400 Systolic blood pressure 115 mm[Hg] Pcp Unknown [facility] 02-13-2021 21:53-0400 Body temperature 96.08 [degF] Pcp Unknown [facility] 02-08-2021 17:18-0400 Body temperature 97.7 [degF] No Pcp Required [facility] Other Phone (unformatted): [phone] 02-08-2021 17:18-0400 Diastolic blood pressure 67 mm[Hg] No Pcp Required [facility] Other Phone (unformatted): [phone] 02-08-2021 17:18-0400 Heart rate 81 /min No Pcp Required [facility] Other Phone (unformatted): [phone] 02-08-2021 17:18-0400 Respiratory rate 18 /min No Pcp Required [facility] Other Phone (unformatted): [phone] 02-08-2021 17:18-0400 SaO2% (BldA) [Mass fraction] 98 % No Pcp Required [facility] Other Phone (unformatted): [phone] 02-08-2021 17:18-0400 Systolic blood pressure 149 mm[Hg] No Pcp Required [facility] Other Phone (unformatted): [phone] 02-08-2021 13:48-0400 Body height 165.1 cm No Pcp Required [facility] Other Phone (unformatted): [phone] 02-08-2021 13:48-0400 Body weight 83.6 kg No Pcp Required [facility] Other Phone (unformatted): [phone] 02-05-2021 13:36-0400 Body height 167.6 cm No Pcp Required [facility] 02-05-2021 13:36-0400 Body temperature 96.08 [degF] No Pcp Required [facility] 02-05-2021 13:36-0400 Body weight 86.3 kg No Pcp Required [facility] 02-05-2021 13:36-0400 Diastolic blood pressure 78 mm[Hg] No Pcp Required [facility] 02-05-2021 13:36-0400 Heart rate 98 /min No Pcp Required [facility] 02-05-2021 13:36-0400 Respiratory rate 20 /min No Pcp Required [facility] 02-05-2021 13:36-0400 SaO2% (BldA) [Mass fraction] 100 % No Pcp Required [facility] 02-05-2021 13:36-0400 Systolic blood pressure 135 mm[Hg] No Pcp Required [facility] 02-03-2021 17:29-0400 Body temperature 96.98 [degF] No Pcp Required [facility] 02-03-2021 17:29-0400 Diastolic blood pressure 84 mm[Hg] No Pcp Required [facility] 02-03-2021 17:29-0400 Heart rate 67 /min No Pcp Required [facility] 02-03-2021 17:29-0400 Respiratory rate 18 /min No Pcp Required [facility] 02-03-2021 17:29-0400 SaO2% (BldA) [Mass fraction] 99 % No Pcp Required [facility] 02-03-2021 17:29-0400 Systolic blood pressure 126 mm[Hg] No Pcp Required [facility] 02-03-2021 16:31-0400 Body height 167.6 cm No Pcp Required [facility] 02-03-2021 16:31-0400 Body weight 86.3 kg No Pcp Required [facility] 02-03-2021 08:03-0400 Body temperature 97.88 [degF] No Pcp Required [facility] 02-03-2021 08:03-0400 Diastolic blood pressure 79 mm[Hg] No Pcp Required [facility] 02-03-2021 08:03-0400 Heart rate 56 /min No Pcp Required [facility] 02-03-2021 08:03-0400 Respiratory rate 18 /min No Pcp Required [facility] 02-03-2021 08:03-0400 SaO2% (BldA) [Mass fraction] 94 % No Pcp Required [facility] 02-03-2021 08:03-0400 Systolic blood pressure 115 mm[Hg] No Pcp Required [facility] 02-03-2021 04:56-0400 Body height 167.6 cm No Pcp Required [facility] 02-03-2021 04:56-0400 Body weight 86.2 kg No Pcp Required [facility] 02-03-2021 04:01-0400 Body temperature 97.88 [degF] No Pcp Required [facility] 02-03-2021 04:01-0400 Diastolic blood pressure 81 mm[Hg] No Pcp Required [facility] 02-03-2021 04:01-0400 Heart rate 73 /min No Pcp Required [facility] 02-03-2021 04:01-0400 Respiratory rate 15 /min No Pcp Required [facility] 02-03-2021 04:01-0400 SaO2% (BldA) [Mass fraction] 97 % No Pcp Required [facility] 02-03-2021 04:01-0400 Systolic blood pressure 101 mm[Hg] No Pcp Required [facility] 02-02-2021 03:00-0400 Body temperature 97.52 [degF] No Pcp Required [facility] 02-02-2021 03:00-0400 Diastolic blood pressure 85 mm[Hg] No Pcp Required [facility] 02-02-2021 03:00-0400 Heart rate 77 /min No Pcp Required [facility] 02-02-2021 03:00-0400 Respiratory rate 16 /min No Pcp Required [facility] 02-02-2021 03:00-0400 SaO2% (BldA) [Mass fraction] 98 % No Pcp Required [facility] 02-02-2021 03:00-0400 Systolic blood pressure 118 mm[Hg] No Pcp Required [facility] 01-30-2021 02:43-0400 Diastolic blood pressure 83 mm[Hg] No Pcp Required [facility] 01-30-2021 02:43-0400 Heart rate 59 /min No Pcp Required [facility] 01-30-2021 02:43-0400 Respiratory rate 16 /min No Pcp Required [facility] 01-30-2021 02:43-0400 SaO2% (BldA) [Mass fraction] 99 % No Pcp Required [facility] 01-30-2021 02:43-0400 Systolic blood pressure 139 mm[Hg] No Pcp Required [facility] 01-17-2020 05:38-0400 Pulse Oximetry 98 % [place], [place] 01-17-2020 02:44-0400 BP Diastolic 79 mm[Hg] [place] 01-17-2020 02:44-0400 BP Systolic 122 mm[Hg] [place] 01-17-2020 00:07-0400 BMI (Body Mass Index) 31.47 kg/m2 [place] 01-17-2020 00:07-0400 Body Temperature 98.2 [degF] [place] 01-17-2020 00:07-0400 Body weight 88.45 kg [place] 01-17-2020 00:07-0400 Height 167.6 cm [place] 01-17-2020 00:07-0400 Pulse (Heart Rate) 74 /min [place], [place] 01-17-2020 00:07-0400 Respiratory Rate 18 /min [facility], [place] 01-14-2020 18:05-0400 BP Diastolic 86 mm[Hg] [facility] [place] 01-14-2020 18:05-0400 BP Systolic 135 mm[Hg] [facility] [place] 01-14-2020 18:05-0400 Pulse (Heart Rate) 72 /min [facility], [place] 01-14-2020 18:05-0400 Pulse Oximetry 100 % [facility], [place] 01-14-2020 18:05-0400 Respiratory Rate 20 /min [facility] 01-14-2020 16:36-0400 BMI (Body Mass Index) 31.47 kg/m2 [facility] 01-14-2020 16:36-0400 Body weight 88.45 kg [facility] 01-14-2020 16:36-0400 Height 167.6 cm [facility] 01-14-2020 16:30-0400 Body Temperature 99.1 [degF] [facility] 12-15-2019 07:26-0400 BP Diastolic 83 mm[Hg] [facility] , [place] 12-15-2019 07:26-0400 BP Systolic 121 mm[Hg] [facility] , [place] 12-15-2019 07:26-0400 Pulse (Heart Rate) 83 /min [facility] 12-15-2019 07:26-0400 Pulse Oximetry 100 % [facility] , [place] 12-15-2019 07:26-0400 Respiratory Rate 12 /min [facility], [place] 12-15-2019 05:34-0400 Body Temperature 98.1 [degF] [facility], [place] 12-15-2019 05:33-0400 BMI (Body Mass Index) 32.28 kg/m2 [facility] 12-15-2019 05:33-0400 Body weight 90.72 kg [facility] , [place] 12-15-2019 05:33-0400 Height 167.6 cm [facility] , [place] 12-13-2019 06:33-0400 BP Diastolic 96 mm[Hg] [facility] , [place] 12-13-2019 06:33-0400 BP Systolic 129 mm[Hg] [facility] , [place] 12-13-2019 06:20-0400 Pulse (Heart Rate) 69 /min [facility] 12-13-2019 06:20-0400 Pulse Oximetry 99 % [facility] , [place] 12-13-2019 06:20-0400 Respiratory Rate 17 /min [facility], [place] 12-13-2019 04:52-0400 BMI (Body Mass Index) 32.28 kg/m2 [facility] 12-13-2019 04:52-0400 Body Temperature 98.8 [degF] [facility] 12-13-2019 04:52-0400 Body weight 90.72 kg [facility] , [place] 12-13-2019 04:52-0400 Height 167.6 cm [facility] , [place] 05-18-2019 22:48-0400 BP Diastolic 67 mm[Hg] [facility] 05-18-2019 22:48-0400 BP Systolic 121 mm[Hg] [facility] 05-18-2019 22:48-0400 Pulse (Heart Rate) 83 /min [facility], [place] 05-18-2019 22:48-0400 Pulse Oximetry 100 % [facility] 05-18-2019 22:48-0400 Respiratory Rate 20 /min [facility] 05-18-2019 20:51-0400 BMI (Body Mass Index) 32.28 kg/m2 [facility] 05-18-2019 20:51-0400 Body Temperature 98.8 [degF] [facility], [place] 05-18-2019 20:51-0400 Body weight 90.72 [facility] [place] 05-18-2019 20:51-0400 Height 167.6 cm [facility] [place] Encounters Encounter Date Encounter Type Care Provider Facility Start: 08-07-2024 End: 08-07-2024 Emergency department patient visit Howard Martin [facility] Start: 08-02-2024 End: 08-02-2024 Emergency department patient visit Pasquale Nuñez [facility] Start: 07-25-2024 End: 07-25-2024 Emergency department patient visit NO PCP NO PCP [facility] Start: 2024 End: 2024 ambulatory [place] Talgiuseppe Mittalmini Facility:[facility] Start: 2024 End: 2024 Patient encounter procedure [place] Talgiuseppe Mittalmini [facility] Start: 07-19-2024 End: 2024 Emergency department patient visit AGUSTINA Mooney [facility] Start: 07-17-2024 End: 07-18-2024 Emergency department patient visit Neil Alexander [facility] Start: 07-17-2024 ambulatory Jose De Jesusalex claudecourtney Facility :[facility] Start: 07-16-2024 End: 07-16-2024 Emergency department patient visit Neil Alexander [facility] Start: 07-16-2024 End: 07-16-2024 Emergency department patient visit DO Gustavo Mcclelland Work Phone: [facility] Work Phone: Start: 07-15-2024 End: 07-15-2024 Emergency department patient visit DO Gustavo Mcclelland Work Phone: [facility] Work Phone: Start: 07-15-2024 End: 07-15-2024 ambulatory DO Gustavo Mcclelland Work Phone: [facility] Work Phone: Start: 07-15-2024 End: 07-15-2024 Patient encounter procedure DO Gustavo Mcclelland Work Phone: [facility] Work Phone: Start: 07-14-2024 End: 07-14-2024 Emergency department patient visit DO Gustavo Mcclelland Work Phone: [facility] Work Phone: Start: 07-11-2024 End: 07-11-2024 [facility] Start: 07-09-2024 End: 07-09-2024 [facility] Start: 07-04-2024 End: 07-04-2024 Emergency department patient visit [facility] Start: 06-07-2023 End: 06-07-2023 Emergency department patient visit Neil Pete [facility] Bed 01 Start: 06-06-2023 End: 06-06-2023 Emergency department patient visit TYREE MACKENZIE [facility] Bed 06 Start: 06-04-2023 End: 06-04-2023 Emergency department patient visit Stefanie Reyes [facility] Bed 09 Start: 05-30-2023 End: 05-30-2023 Emergency department patient visit UNKNOWN PROVIDER Facility:[facility] Start: 05-30-2023 End: 05-30-2023 Emergency department patient visit Riley Crawford MD Work Phone: [facility] Comment on above: Dizziness (Dizziness upon standing) Start: 05-29-2023 End: 05-29-2023 Emergency department patient visit CARLOS LARIOSXIMENA Facility:[facility] Start: 05-29-2023 Emergency department patient visit VIRAL AMADO Facility:[facility] Start: 05-29-2023 End: 05-29-2023 Emergency department patient visit VIRAL AMADO Facility:[facility] Start: 05-20-2023 Emergency department patient visit VIRAL AMADO Facility:[facility] Start: 05-18-2023 End: 05-18-2023 Emergency department patient visit VIRAL AMADO Facility:[facility] Start: 05-11-2023 End: 05-11-2023 [facility]KNOWN Start: 05-11-2023 End: 05-11-2023 Emergency department patient visit Kristen Bowman MD [facility] Phone[facility] Comment on above: Other chest pain; Palpitations; Decreased white blood cell count, unspecified; Thrombocytopenia, unspecified (CMS/HCC); Disorder of kidney and ureter, unspecified; Old myocardial infarction; Homelessness unspecified; Personal history of other diseases of the circulatory system Start: 05-05-2023 End: 05-05-2023 Emergency department patient visit [facility] Work Phone: Start: 05-05-2023 End: 05-05-2023 Emergency department patient visit [facility] Work Phone: Start: 04-21-2023 End: 04-21-2023 Emergency department patient visit LILY MERCADO [facility] Start: 04-20-2023 End: 04-20-2023 Emergency department patient visit ROBINA Kline TO [facility] Start: 04-20-2023 End: 04-20-2023 Emergency department patient visit ROBINA Kline TO [facility] Start: 04-14-2023 End: 04-15-2023 Emergency department patient visit MATTY CLEMENTS [facility] Start: 02-04-2023 End: 02-04-2023 Emergency department patient visit LEONIDES SILVEIRA [facility] Start: 02-03-2023 End: 02-03-2023 Emergency department patient visit LEONIDES SILVEIRA [facility] Start: 02-02-2023 End: 02-02-2023 Emergency department patient visit KENN RODRIGUEZ [facility] Start: 02-02-2023 End: 02-02-2023 Emergency department patient visit Kenn Rodriguez MD Work Phone: [facility] Comment on above: Essential hypertensi on (Primary Dx) Start: 02-01-2023 End: 02-01-2023 Emergency department patient visit LILA SPENCERMARVA [facility] Start: 02-01-2023 End: 02-01-2023 Emergency department patient visit [place] Work Phone: [facility] Comment on above: Generalized abdomina l pain (Primary Dx); Ascending aortic aneurysm, unspecified whether ruptured (HCC); Abnormal CT scan Start: 02-01-2023 End: 02-01-2023 Emergency department patient visit SUSU COLLINS [facility] Start: 02-01-2023 End: 02-01-2023 Emergency department patient visit Susu Collins MD Work Phone: [facility] Comment on above: Acute alcoholic into xication without complication (HCC) (Primary Dx); Hypotension, unspecified hypotension type; Dehydration; Hypokalemia Start: 01-28-2023 End: 01-29-2023 Emergency department patient visit Triston Orozco [facility] Start: 01-22-2023 End: 01-23-2023 ambulatory KAY VAZQUEZ Facility:UNKNOWN Start: 01-22-2023 Emergency department patient visit VIRAL AMADO Facility:[facility] Start: 01-14-2023 End: 01-14-2023 Emergency department patient visit NADIRA HAZEL MD Facility:[id number] Start: 01-26-2022 Chart Copy Viral S Aneudy Work Phone: GP-Toothkxwbx-OFNH [place] [address] [place] Work Phone: Start: 12-22-2021 Refill Thalia Mosley MD Work Phone: Cardiology Start: 12-01-2021 Chart Copy Viral Willett Aneudy Work Phone: LE-Mhkniuscxm-HWPN [place] [address] [place] Work Phone: Start: 11-23-2021 Patient encounter procedure Viral Willett Aneudy Work Phone: LP-Ihwkotlngz-EDRU [place] [address] [place] Work Phone: Start: 11-15-2021 Patient encounter procedure Viral Willett Aneudy Work Phone: VB-Pbvannlxyp-HJMX [place] [address] [place] Work Phone: Start: 11-06-2021 Patient encounter procedure Viral Brennon Amado Work Phone: GD-Yuhuqomxtp-EZJU [place] [address] [place] Work Phone: Start: 10-27-2021 Chart Update Viral S Aneudy Work Phone: SH-Njbcnhqxes-FBDU [place] [address] [place] Work Phone: Start: 10-02-2021 Rx Change Viral S Aneudy Work Phone: MS-Evachenqne-Kqilil Work Phone: Start: 09-29-2021 AUDIT Viral S Aneudy Work Phone: [address] Work Phone: Start: 09-08-2021 Patient encounter procedure Viral Amado Work Phone: FB-Unjieedhwl-HAOX [place] [address] [place] Work Phone: Start: 09-05-2021 End: 09-05-2021 Emergency department patient visit Cheo Simeon [facility] Adult ED Green 19 Start: 08-31-2021 Patient encounter procedure Viral Amado Work Phone: UJ-Jzatqnboyl-WXIX [address] [address] [place] Work Phone: Start: 08-30-2021 Chart Copy Viral Amado Work Phone: [facility] [place] Work Phone: Start: 08-30-2021 Office outpatient vi sit 10 minutes Viral Amado Work Phone: [facility] [address] Work Phone: Start: 08-30-2021 VIRFUVSRINATH, Provider : Tay Lott, Status: Pen, Time: 1:00 PM Viral Amado Work Phone: XA-Bsjwddubiq-Sekkqx Work Phone: Start: 08-28-2021 Office outpatient vi sit 40 minutes Viral Amado Work Phone: NF-Eiuztirtak-Rtmsk HVI Work Phone: Start: 08-28-2021 Patient encounter procedure Viral Amado Work Phone: IX-Sdwqqksyid-Moxhpk Work Phone: Start: 08-23-2021 End: 08-24-2021 Emergency department patient visit Nessa Kelly [facility] Adult ED Waiting Start: 08-23-2021 Patient encounter procedure Lily Carvajal Cardiology Joan Start: 08-20-2021 End: 08-20-2021 Emergency department patient visit Amanda Henderson ED Bed 10 Flex Start: 08-19-2021 End: 08-20-2021 Emergency department patient visit Daniela [facility] ED Waiting Room Start: 08-19-2021 End: 08-19-2021 Emergency department patient visit [facility] ED Waiting Room Start: 08-12-2021 End: 08-13-2021 Emergency department patient visit Triston Orozco [facility] Adult ED Blue 34 Start: 08-11-2021 AUDIT Viral Amado Work Phone: [facility] Work Phone: Start: 08-10-2021 Chart Update Viral Willett Aneudy Work Phone: [facility] [address] Work Phone: Start: 08-10-2021 End: 08-10-2021 Emergency department patient visit Dejah Faust ED Waiting Room Start: 08-02-2021 CASSIUS, Provider : TRAVIS FELTON, Status: Pen, Time: 11:00 AM Viral Amado Work Phone: ZD-Neqghskryugqknsp-Wnqz ell 6 D[facility] Work Phone: Start: 08-02-2021 Rx Renewal Viral S Aneudy Work Phone: [address] [facility] [address] Work Phone: Start: 08-01-2021 COLON, Provider: Lynette Saldaña, Status: Pen, Time: 3:00 PM Viral Amado Work Phone: KQ-Vjairoomvsnckavj-Jboa ell 6 [facility] Work Phone: Start: 07-31-2021 AUDIT Viral S Aneudy Work Phone: IA-Pdjqhhjarkbyxphq-Irkl ell 6 D[facility] Work Phone: Start: 07-24-2021 AUDIT Viral S Aneudy Work Phone: IP-Rytnzajiym-Xvuebzx [address] [facility] Work Phone: Start: 07-18-2021 Patient encounter procedure Viral S Aneudy Work Phone: LK-Ideqvpaucw-Vtjvmza [address] Work Phone: Start: 07-11-2021 NPV, Provider: Bao Mares, Status: Pen, Time: 1:40 PM Viral Amado Work Phone: [facility] Work Phone: Start: 07-10-2021 Office outpatient vi sit 25 minutes Viral Amado Work Phone: [facility] Work Phone: Start: 07-07-2021 AUDIT Viral Amado Work Phone: ZV-Hnjkkcnmaj-Krcbzuw [address] Work Phone: Start: 07-06-2021 Chart Copy Viral Amado Work Phone: WI-Tythhugvsq-Dlcfgo 1162 Work Phone: Start: 07-05-2021 Patient encounter procedure Viral Amado Other Phone: [facility] Preadmit Start: 07-05-2021 [facility], Provider: Tay Lott, Status: Pen, Time: 7:00 AM Viral Amado Work Phone: [facility] Work Phone: Start: 07-05-2021 End: 07-05-2021 Evaluation and management of inpatient [place] Dianne [place] In[place] 1 S Rm 126 Bed A Start: 07-04-2021 End: 07-05-2021 Emergency department patient visit Nubia Monaemond ED Bed 12 Start: 07-03-2021 AUDIT Viral Amado Work Phone: [facility] 1800 Work Phone: Start: 06-28-2021 Office outpatient vi sit 40 minutes Viral Amado Work Phone: [facility] Work Phone: Start: 06-28-2021 Patient encounter procedure Latha Messina [facility] Start: 06-26-2021 End: 06-27-2021 Emergency department patient visit Stacia Wolf [facility] Adult ED Gold 16 Start: 06-23-2021 FUVHOSP, Provider: Viral Amado, Status: Pen, Time: 11:15 AM Viral Amado Work Phone: [facility] Work Phone: Start: 06-23-2021 Office outpatient vi sit 25 minutes Viral Amado Work Phone: [address] - [facility] [address] Work Phone: Start: 06-22-2021 AUDIT Viral Amado Work Phone: [address] [facility] [address] Work Phone: Start: 06-21-2021 AUDIT Viral Amado Work Phone: UX-Cvteeobszpnvzlld-Lwyl ell 6 D[facility] Work Phone: Start: 06-21-2021 EGD, Provider: Jaylin Briones, Status: Pen, Time: 8:00 AM Viral Amado Work Phone: [facility] Work Phone: Start: 06-20-2021 Office outpatient ne w 45 minutes Viral Amado Work Phone: [facility] Work Phone: Start: 06-15-2021 AUDIT Viral Amado Work Phone: [address] [facility] [address] Work Phone: Start: 06-14-2021 End: 06-14-2021 Emergency department patient visit [facility] ED Bed 12 Start: 06-13-2021 End: 06-13-2021 Emergency department patient visit [facility] ED Bed 02 Start: 06-12-2021 AUDIT Viral Amado Work Phone: [address] [facility] [address] Work Phone: Start: 06-07-2021 AUDIT Viral Amado Work Phone: [address] [facility] [address] Work Phone: Start: 06-07-2021 End: 06-07-2021 Emergency department patient visit [facility] [place] ED Bed 07 Start: 06-04-2021 End: 06-05-2021 Emergency department patient visit NO PCP AA NO PCP [facility] Start: 06-02-2021 End: 06-03-2021 Emergency department patient visit Alaina Maciel [facility] ED Bed 15 Start: 06-02-2021 Patient encounter procedure Viral Amado [facility] [place] Start: 05-31-2021 End: 05-31-2021 Emergency department patient visit Klaudia Mosqueda [facility] G Start: 05-31-2021 End: 05-31-2021 Emergency department patient visit Viral Amado [facility] Wait Start: 05-27-2021 End: 05-28-2021 Emergency department patient visit NO PCP AA NO PCP [facility] Start: 05-27-2021 End: 05-27-2021 Emergency department patient visit Noel Adler [facility] Consult 01 Start: 05-25-2021 End: 05-25-2021 Emergency department patient visit Viral Amado [facility] 01 Start: 05-24-2021 End: 05-25-2021 Emergency department patient visit Elgin Morales [facility] 13 Start: 05-23-2021 End: 05-23-2021 Emergency department patient visit CHARLY [facility] Start: 05-11-2021 Office outpatient ne w 30 minutes Viral Amado Work Phone: [facility] Medicine[address] Work Phone: Start: 05-11-2021 Patient encounter procedure Elizabet Morales [facility] Start: 05-08-2021 End: 05-09-2021 Emergency department patient visit Daniela Jerold [facility] [place] 01 Start: 04-25-2021 Office outpatient vi sit 25 minutes Viral Amado Work Phone: PP-Tixaxtyjzojkzlsd-Bljs asher 6 D[facility] Work Phone: Start: 04-25-2021 Patient encounter procedure Viral Amado Work Phone: ZA-Upggqeiqsrylejdl-Bpds ell 6 [facility] Work Phone: Start: 04-21-2021 End: 04-21-2021 Emergency department patient visit Daniela [facility] ED Bed 04 Start: 04-20-2021 Evaluation and management of inpatient Viral Amado Other Phone: [facility] Preadmit Start: 04-18-2021 End: 04-18-2021 Emergency department patient visit [facility] [place] [facility] 05 Start: 04-15-2021 End: 04-15-2021 Emergency department patient visit Cierra Gimenez [facility] ED Bed 14 Start: 04-13-2021 End: 04-13-2021 Emergency department patient visit Amanda Choudhary [facility] ED Bed HB3 Start: 04-12-2021 End: 04-13-2021 Emergency department patient visit Malou Lomax [facility] ED Bed 01 Start: 04-12-2021 Office outpatient ne w 60 minutes Viral Amado Work Phone: [facility] 1800 Work Phone: Start: 04-12-2021 Patient encounter procedure Viral Amado Work Phone: [facility] Work Phone: Start: 04-08-2021 End: 04-08-2021 Emergency department patient visit Charly Oumar [facility] Adult ED Gold 11 Start: 04-04-2021 End: 04-04-2021 Emergency department patient visit Liam So [place] [facility] 05 Start: 04-03-2021 End: 04-04-2021 Emergency department patient visit Irving Wills [place] [facility] 09 Start: 03-30-2021 End: 03-30-2021 Emergency department patient visit [facility] Start: 03-30-2021 End: 03-30-2021 Emergency department patient visit [facility] ED Comment on above: Chest pain, unspecif ied type (Primary Dx) Start: 03-30-2021 End: 04-02-2021 ambulatory [facility] Start: 03-30-2021 End: 04-01-2021 Subsequent hospital visit by physician Mercado Fluoro Room 1 [facility] Comment on above: Dysphagia, unspecifi ed type Start: 03-29-2021 End: 03-30-2021 Emergency department patient visit [facility] Start: 03-29-2021 End: 03-29-2021 Emergency department patient visit [facility] ED Comment on above: Atypical chest pain (Primary Dx) Start: 03-29-2021 End: 03-29-2021 Emergency department patient visit WILL CARTER [facility] Start: 03-23-2021 End: 03-24-2021 Emergency department patient visit Radu Tovar [facility] 03 Start: 03-23-2021 Office outpatient vi sit 25 minutes Viral Amado Work Phone: DN-Lgrvhtwdwp-Jeqxzftd SJW 200 Work Phone: Start: 03-15-2021 Office outpatient ne w 60 minutes Viral Amado Work Phone: [facility] [employer] Work Phone: Start: 03-15-2021 Patient encounter procedure Viral Amado [facility] [place] Start: 03-14-2021 End: 03-15-2021 Emergency department patient visit Bal Renzo [facility] Adult ED Gold 15 Start: 03-14-2021 End: 03-14-2021 Emergency department patient visit No Pcp Required [facility] Adult ED Waiting Start: 03-03-2021 Patient encounter procedure Viral Amado Other Phone: [facility] Preadmit Start: 03-02-2021 End: 03-02-2021 Emergency department patient visit Terry García [place] ED Bed 20 Start: 03-01-2021 Chart Update Referring Prov ider Unknown HG-[facility]qshzcmaceokvmy[facility] Work Phone: Start: 02-28-2021 End: 02-28-2021 Emergency department patient visit Bal Lomax [place] ED Bed 17 Start: 02-27-2021 End: 02-27-2021 Emergency department patient visit Hermes Sexton [place] ED Bed 08 Start: 02-23-2021 End: 02-23-2021 Emergency department patient visit Josh Loli [facility] Start: 02-22-2021 Office outpatient ne w 45 minutes Referring Provider Unknown [facility] [employer] Work Phone: Start: 02-18-2021 End: 02-18-2021 Emergency department patient visit Dana Sol [facility] Bed 03 Start: 02-17-2021 AUDIT Referring Prov ider Unknown YK-Cqcgrqoela-Vcrmbogv SJW 200 Work Phone: Start: 02-16-2021 AUDIT Referring Prov ider Unknown CC-Djjtvrasoe-Shzsnreb SJW 200 Work Phone: Start: 02-15-2021 Patient encounter procedure Lilly Coats [facility] [place] Start: 02-15-2021 Phys/qhp telephone evaluation 21-30 min Referring Provider Unknown [address] [facility] [address] Work Phone: Start: 02-15-2021 TEJAL, Provider : Lilly Coats, Status: Pen, Time: 1:00 PM Referring Provider Unknown KQ-Hrxgrebdwd-Rydlufxb SJW 200 Work Phone: Start: 02-15-2021 End: 02-15-2021 Emergency department patient visit Daniela Church [facility] Bed 11 Start: 02-14-2021 AUDIT Referring Prov ider Unknown LB-Ajffarypyo-Ucencioa SJW 200 Work Phone: Start: 02-13-2021 End: 02-14-2021 Emergency department patient visit Bal Sahu [facility] Start: 02-08-2021 End: 02-08-2021 Emergency department patient visit Rashaun Delgadillo [facility] Other Phone (unformatted): [phone] Start: 02-05-2021 End: 02-05-2021 Emergency department patient visit Keith Geni [facility] Bed 07 Start: 02-03-2021 End: 02-03-2021 Emergency department patient visit Dejah Lepe [facility] Bed 03 Start: 02-03-2021 End: 02-03-2021 Emergency department patient visit Lily Wolf [facility] ED Bed 04 A Start: 02-02-2021 End: 02-03-2021 Emergency department patient visit Lily Wolf [facility] ED Bed H03 Start: 02-01-2021 End: 02-02-2021 Emergency department patient visit Stacia Bloom [facility] Adult ED Gold 04 Start: 01-29-2021 End: 01-30-2021 Emergency department patient visit Shawn Flores [facility] Bed 11 Start: 01-16-2020 End: 01-17-2020 Emergency department patient visit Sahil Bo Work Phone: [facility] ED Comment on above: Chest pain, unspecif ied type (Primary Dx) Start: 01-15-2020 End: 01-15-2020 Subsequent hospital visit by physician [facility] Comment on above: Suspected COVID-19 v irus infection Start: 01-14-2020 End: 01-14-2020 Emergency department patient visit Brenna Horowitz Work Phone: [facility] ED Comment on above: Lightheadedness (Екатерина nicole Dx); History of hypertension; Pain, dental Start: 12-15-2019 End: 12-15-2019 Emergency department patient visit Physician [facility] Start: 12-15-2019 End: 12-15-2019 Emergency department patient visit Howard Ayon Work Phone: [facility] EMERGENCY [facility]PT Comment on above: Hypertension, unspec ified type (Primary Dx) Start: 12-13-2019 End: 12-13-2019 Emergency department patient visit Physician No [facility] Start: 12-13-2019 End: 12-13-2019 Emergency department patient visit Brandenliz Moraes Work Phone: [facility] Comment on above: Cough (Primary Dx); Primary hypertension Start: 05-18-2019 End: 05-18-2019 Emergency department patient visit Nessa Green Work Phone: [facility] ED Comment on above: Accelerated hyperten jayy (Primary Dx) Start: 02-25-2018 Emergency department patient visit Facility:[facility] Start: 02-23-2018 Emergency department patient visit Gracia Claire [facility] MD Melvi rene MD [facility] Procedures Date Procedure Procedure Detail Performing Clinician Start: 07-16-2024 CT of chest DO Gustavo Mcclelland Work Phone: Start: 07-16-2024 Plain chest X-ray DO Kit Mcclelland Work Phone: Start: 07-14-2024 Computed tomography of abdomen and pelvis with contrast DO Gustavo Mcclelland Work Phone: Start: 06-07-2023 End: 06-07-2023 EKG impression Neil Pete Start: 06-06-2023 End: 06-06-2023 EKG impression TYREE DUBOIS [place] Start: 06-04-2023 End: 06-04-2023 EKG impression Stefanie Reyes Start: 05-30-2023 End: 05-30-2023 Basic metabolic [...] [Mass/volume] in Platelet poor plasma Thalia Roberto GASOLINE ENGINE INSPECTOR-STRATEGIC INTELLIGENCE OFFICER Work Phone: Start: 05-11-2023 HS TROPONIN T Thalia murdock GASOLINE ENGINE INSPECTOR-STRATEGIC INTELLIGENCE OFFICER Work Phone: Start: 05-11-2023 Radiologic exam ches t 2 views Syngo Conversion Start: 05-11-2023 Bacteria identified in Urine by Culture Thalia Roberto GASOLINE ENGINE INSPECTOR-STRATEGIC INTELLIGENCE OFFICER Work Phone: Start: 05-11-2023 DRUG SCREEN,URINE Thalia Vinicio Roberto GASOLINE ENGINE INSPECTOR-STRATEGIC INTELLIGENCE OFFICER Work Phone: Start: 05-11-2023 Urinalysis complete W Reflex Culture panel - Urine Thalia Roberto GASOLINE ENGINE INSPECTOR-STRATEGIC INTELLIGENCE OFFICER Work Phone: Start: 05-11-2023 Complete blood count with white cell differential, automated Thalia Roberto GASOLINE ENGINE INSPECTOR-STRATEGIC INTELLIGENCE OFFICER Work Phone: Start: 05-11-2023 Comprehensive metabo lic panel Thalia Roberto GASOLINE ENGINE INSPECTOR-STRATEGIC INTELLIGENCE OFFICER Work Phone: Start: 05-11-2023 Ethanol [Mass/volume ] in Serum or Plasma Thalia Roberto GASOLINE ENGINE INSPECTOR-STRATEGIC INTELLIGENCE OFFICER Work Phone: Start: 05-11-2023 HS TROPONIN T Thalia murdock GASOLINE ENGINE INSPECTOR-STRATEGIC INTELLIGENCE OFFICER Work Phone: Start: 05-11-2023 Lipase [Enzymatic activity/volume] in Serum or Plasma Thalia Roberto GASOLINE ENGINE INSPECTOR-STRATEGIC INTELLIGENCE OFFICER Work Phone: Start: 05-11-2023 Magnesium [Mass/volu me] in Serum or Plasma Thalia Roberto GASOLINE ENGINE INSPECTOR-STRATEGIC INTELLIGENCE OFFICER Work Phone: Start: 05-11-2023 Natriuretic peptide. B prohormone N-Terminal [Mass/volume] in Serum or Plasma Thalia Roberto GASOLINE ENGINE INSPECTOR-STRATEGIC INTELLIGENCE OFFICER Work Phone: Start: 05-11-2023 TSH WITH REFLEX TO F REE T4 IF ABNORMAL Thalia Roberto GASOLINE ENGINE INSPECTOR-STRATEGIC INTELLIGENCE OFFICER Work Phone: Start: 02-04-2023 Assay of ethanol KIM SILVEIRA Start: 02-04-2023 IP CONSULT TO [employer] LEONIDES SILVEIRA Start: 02-04-2023 Radiologic exam [...] 02-01-2023 IP CONSULT TO SOCIAL WORK SUSU COLLINS Start: 02-01-2023 Ct angio abd&plvis c ntrst [...] Phone: Start: 02-01-2023 Drug screen, qualitate/multi Lila Vera DO Work Phone: Start: 02-01-2023 Hepatic function panel Lila Vera DO Work Phone: Start: 02-01-2023 Urnls dip stick/tabl et reagent auto microscopy Lila Vera DO Work Phone: Start: 02-01-2023 Assay of ethanol SUSU JOSH Start: 02-01-2023 Basic metabolic pane l calcium total SUSU COLLINS Start: 02-01-2023 Assay of ethanol Susu Collins MD Work Phone: Start: 02-01-2023 Basic metabolic pane l calcium total Susu Collins MD Work Phone: Start: 02-01-2023 INSERT PERIPHERAL IV SH JESSE HASTINGSGLER Start: 02-01-2023 TELEMETRY MONITORING SH JESSE HASTINGSGLER Start: 02-01-2023 ED NURSING COMMUNICATION SUSU COLLINS [...] Simeon Start: 08-20-2021 End: 08-20-2021 EKG impression Guillermo Tony Start: 08-12-2021 End: 08-12-2021 EKG impression Trice Clark Start: 07-05-2021 Echocardiography Viral Amado Work Phone: Start: 07-04-2021 aPTT in Platelet poo r plasma by Coagulation assay Nubia Young Start: 07-04-2021 End: 07-04-2021 EKG impression Nubia Young Start: 07-04-2021 End: 07-04-2021 EKG impression Nubia Young Start: 06-07-2021 End: 06-07-2021 EKG impression Grupo Sousa Start: 06-02-2021 End: 06-02-2021 EKG impression Mahsa Ford Start: 06-02-2021 Follow-up visit Start: 05-31-2021 End: 05-31-2021 EKG impression Klaudia Mosqueda Start: 05-24-2021 End: 05-24-2021 EKG impression Elgin Morales Start: 05-08-2021 End: 05-08-2021 EKG impression Arie Nguyen Start: 04-15-2021 End: 04-15-2021 EKG impression Cierra Gimenez Start: 04-13-2021 End: 04-13-2021 EKG impression Amanda Choudhary Start: 04-12-2021 End: 04-12-2021 EKG impression Dana Carpintero-Dayday Start: 04-12-2021 End: 04-12-2021 EKG impression Dana Carpintero-Dayday Start: 03-30-2021 Radiologic exam ches t single view Tasneem Story GASOLINE ENGINE INSPECTOR - [facility] Work Phone: Start: 03-30-2021 Comprehensive metabo lic panel Tasneem Story GASOLINE ENGINE INSPECTOR - [facility] Work Phone: Start: 03-30-2021 Radiologic exam esop hagus single contrast study Mazen Raul Start: 03-29-2021 Assay of ethanol Inez Valdes PA-C Work Phone: Start: 03-29-2021 Comprehensive metabo lic panel Inez Valdes PA-C Work Phone: Start: 03-29-2021 Drug screen class list a Inez Valdes PA-C Work Phone: Start: 03-24-2021 End: 03-24-2021 EKG impression Cheo Karie Start: 03-14-2021 End: 03-14-2021 EKG impression Thang Geoff Start: 02-28-2021 End: 02-28-2021 EKG impression Bal Lomax Start: 02-23-2021 End: 02-23-2021 EKG impression Fernando Forman Start: 02-15-2021 End: 02-15-2021 EKG impression Dejah Lepe Start: 02-14-2021 End: 02-14-2021 EKG impression Bal Sahu Start: 02-03-2021 End: 02-03-2021 EKG impression Albina [...] Physician No Family Start: 12-15-2019 Antibody bordetella Jeremiahy sician No Family Start: 12-15-2019 Assay of magnesium Phys ician No Family Start: 12-15-2019 Assay of osmolality blood Physician No Family Start: 12-15-2019 Blood count complete auto&auto difrntl wbc Physician No Family Start: 12-15-2019 Comprehensive metabo lic panel Physician No Family Start: 12-15-2019 Creatinine blood Physic michelle No Family Start: 12-15-2019 Anion gap [Moles/Vol] J ohliz Altaf Dony Work Phone: Start: 12-15-2019 Assay of magnesium Hoawrd Ayon Work Phone: Start: 12-15-2019 Assay of osmolality blood Howard Ayon Work Phone: Start: 12-15-2019 Blood count complete auto&auto difrntl wbc Howard Altaf Dony Work Phone: Start: 12-15-2019 Comprehensive metabo lic panel Howard Altaf Dony Work Phone: Start: 12-15-2019 GLOMERULAR FILTRATIO N RATE, ESTIMATED Howard Altaf Ayon Work Phone: Start: 12-13-2019 Radiologic exam [...] Detail Author Start: 09-07-2025 Lipid panel [facility] Start: 09-07-2025 LIPID SCREEN LIPID SCREEN [facility] Start: 09-09-2024 ambulatory Ambulatory Facility:Katelynn Oh Start: 08-19-2024 DIABETES SCREEN DIABETES SCREEN [facility] Start: 05-30-2024 Creatinine measurement Basic Metabol ic Panel [facility] Start: 11-05-2023 DTaP/Tdap/Td vaccine (2 - Td or Tdap) DTaP/Tdap/Td vaccine (2 - Td or Tdap) [facility] Start: 11-05-2023 DTaP/Tdap/Td vaccine (2 - Td) DTaP/Tdap/Td vaccine (2 - Td) [place] Start: 11-05-2023 Tetanus vaccination Tetanus (T d or Tdap) Booster [facility] Start: 11-05-2023 Urine microalbumin profile DTAP,TDAP,TD (2 - Td or Tdap) [facility] Start: 06-23-2023 Influenza vaccination Influenza Vacc ine (#1) [facility] Start: 05-24-2023 Influenza vaccination Influenza Vacc ine (#1) [facility] Start: 05-05-2023 CT of head without contrast CT head/brain wo con [facility] Start: 05-05-2023 CT Unspecified body region WO contrast [facility] Start: 05-05-2023 Diagnostic radiograp hy of abdomen [facility] Start: 05-05-2023 [facility] Start: 04-23-2023 Influenza vaccination Flu vacc ine (Season Ended) [facility] Start: 02-06-2023 Patient encounter procedure GASTRO RAVENNA Start: 01-29-2023 End: 01-30-2024 Ondansetron Injectable 4 mg IntraVenous Push Once STAT ; (ZOFRAN)DOSE = 4 mg IntraVenous Push Once Start: 29-Jan-2023 End: 29-Jan-2024 Ordered: 29-Jan-2023 Venessa Mejias [facility] Start: 09-01-2022 BP CONTROLLED (<130/80) BP CONTROLLE D (<130/80) [facility] Start: 05-24-2022 Influenza vaccination INFLUENZA (Sea son Ended) [facility] Start: 03-30-2022 Creatinine measurement Creatinine mo [facility] Work Phone: Start: 03-30-2022 Potassium monitoring Potassium monit [facility] Work Phone: Start: 03-29-2022 Creatinine measurement Creatinine mo [facility] Work Phone: Start: 03-29-2022 Potassium monitoring Potassium monit [facility] Work Phone: Start: 02-06-2022 ANNUAL PCP TEAM SEAMLESS HOSIERY KNITTER JULIANA DISEASE VISIT ANNUAL PCP TEAM CHRONIC DISEASE VISIT [facility] Start: 10-09-2021 FUV, Provider: Lily Carvajal, Status: Pen, Time: 1:45 PM FUV, Provider: Lily Carvajal, Status: Pen, Time: 1:45 PM YP-Vnpxobarny-Tlgwuw Work Phone: Start: 10-09-2021 Patient encounter procedure [facility] Start: 10-09-2021 FUV, Provider: Arleth Meredith, Status: Pen, Time: 1:40 PM FUV, Provider: Arleth Meredith, Status: Pen, Time: 1:40 PM CG-Larwixtcvg-BXZQ[address] Work Phone: Start: 09-04-2021 NPV, Provider: Nessa Vicente, Status: Pen, Time: 11:00 AM NPV, Provider: Nessa Vicente, Status: Pen, Time: 11:00 AM RW-Caxpwcwiva-Grkirc Work Phone: Start: 08-28-2021 Patient encounter procedure [facility] Start: 08-23-2021 FUV, Provider: Max Delatorre, Status: Pen, Time: 2:50 PM FUV, Provider: Max Delatorre, Status: Pen, Time: 2:50 PM [facility] [facility] Work Phone: Start: 08-23-2021 Patient encounter procedure [facility] [place] Start: 08-23-2021 NPV, Provider: Lily Carvajal, Status: Pen, Time: 10:45 AM NPV, Provider: Lily Carvajal, Status: Pen, Time: 10:45 AM [facility] 1800 Work Phone: Start: 08-23-2021 Patient encounter procedure Cardiology Joan Start: 08-07-2021 NPV, Provider: Lily Carvajal, Status: Pen, Time: 1:00 PM NPV, Provider: Lily Carvajal, Status: Pen, Time: 1:00 PM SO-Mfhigqclyh-Ylgjdma [address] [facility] Work Phone: Start: 08-04-2021 FUV, Provider: Latha Messina, Status: Pen, Time: 1:20 PM FUV, Provider: Latha Messina, Status: Pen, Time: 1:20 PM XT-Busvgjbecf-Wqnsrud [address] [facility] Work Phone: Start: 08-02-2021 ARTBPGUEUN, Provider : TRAVIS FELTON, Status: Pen, Time: 11:00 AM ARTBPGUEUN, Provider: TRAVIS FELTON, Status: Pen, Time: 11:00 AM MW-Ntlyhkargh-Qiyxyju [address] [facility] Work Phone: Start: 08-01-2021 COLON, Provider: Lynette Saldaña, Status: Pen, Time: 3:00 PM COLON, Provider: Lynette Saldaña, Status: Pen, Time: 3:00 PM WB-Emvicfqlai-Xnzzrzh [address] [facility] Work Phone: Start: 07-26-2021 NPV, Provider: Max Delatorre, Status: Pen, Time: 3:00 PM NPV, Provider: Max Delatorre, Status: Pen, Time: 3:00 PM BY-Vnpyumwjwz-Tdohfhd [address] Work Phone: Start: 07-26-2021 ARTBPGUEUN, Provider : FARHEEN FELTON, Status: Pen, Time: 2:00 PM ARTBPGUEUN, Provider: FARHEEN FELTON, Status: Pen, Time: 2:00 PM TN-Sziduyywjc-Qjcvquk [address] [facility] Work Phone: Start: 07-26-2021 Patient encounter procedure [facility] [place] Start: 2021 Shingles (RZV) Vacci ne (1 of 2) Shingles (RZV) Vaccine (1 of 2) [facility] Start: 2021 Shingles Vaccine (1 of 2) Shingles Vaccine (1 of 2) [facility] Start: 2021 SHINGRIX VACCINE (1 of 2) SHINGRIX VACCINE (1 of 2) [facility] Start: 2021 Zoster Vaccines (1 o f 2) Zoster Vaccines (1 of 2) [facility] Start: 07-18-2021 COLON, Provider: Lynette Saldaña, Status: Pen, Time: 2:20 PM COLON, Provider: Lynette Saldaña, Status: Pen, Time: 2:20 PM AR-Rwzlbsoixo-Mafbfiw [address] Work Phone: Start: 07-18-2021 COLON, Provider: Lynette Saldaña, Status: Pen, Time: 2:00 PM COLON, Provider: Lynette Saldaña, Status: Pen, Time: 2:00 PM [facility] 1800 Work Phone: Start: 07-18-2021 Patient encounter procedure [facility] Start: 07-05-2021 End: 07-06-2022 [facility] Start: 07-05-2021 End: 07-06-2022 [facility] Comment on above: Administer with Q 4 [...] Saline. Start: 07-05-2021 Patient encounter procedure Outpatient [facility] [facility] [id number] [facility] [id number] Start: 05-Jul-2021 7:00 Intent [facility] Start: 07-05-2021 [facility], Provider: Tay Lott, Status: Pen, Time: 7:00 AM SURGC, Provider: Tay Lott, Status: Pen, Time: 7:00 AM [facility] 1800 Work Phone: Start: 07-04-2021 End: 07-05-2022 [facility] Start: 06-28-2021 Patient encounter procedure Outpatient [facility] [place] [id number] [facility] [id number] Start: 28-Jun-2021 9:40 Latha Messina [facility] [place] Start: 06-26-2021 End: 06-27-2022 [facility] Start: 06-26-2021 End: 06-29-2021 Iohexol (Omnipaque 350-Radiology Contrast) . ; (OMNIPAQUE)DOSE = 114 mL IntraVenous Push OnceCa.5 mL/Kg/DOSE x 76 Kg = 114 mL/Dose (Daily Total is 114 mL)LABS: Blood Urea Nitrogen, Serum,12,14-Jun-2021 09:02:41 Creatinine, Serum,0.99,14-Jun-2021 09:02:41 GFR-Non ,>60,14-Jun-2021 09:02:41 GFR-,>60,14-Jun-2021 09:02:41 Start: 26-Jun-2021 End: 28-Jun-2021 Ordered: 26-Jun-2021 Balta Melo Intent [facility] Start: 06-23-2021 FUVHOSP, Provider: Viral Amado, Status: Pen, Time: 11:15 AM FUVHOSP, Provider: Viral Amado, Status: Pen, Time: 11:[address] [facility] [address] Work Phone: Start: 06-23-2021 Patient encounter procedure [facility] Medicine [place] Start: 06-21-2021 EGD, Provider: Jaylin Briones, Status: Pen, Time: 8:00 AM EGD, Provider: Jaylin Briones, Status: Pen, Time: 8:00 AM [facility] Work Phone: Start: 06-21-2021 Patient encounter procedure [facility] Start: 06-02-2021 FUVHOSP, Provider: Viral Amado, Status: Pen, Time: 7:45 AM FUVHOSP, Provider: Viral Amado, Status: Pen, Time: 7:45 AM [facility] Work Phone: Start: 06-02-2021 Patient encounter procedure [facility] [place] Start: 05-27-2021 End: 05-28-2022 Acetaminophen 975 mg Oral Tablet Once ; Tablet (TYLENOL)DOSE = 975 mg Oral Once Start: 27-May-2021 End: 27-May-2022 Ordered: 27-May-2021 Noel Adler Intent [facility] Start: 05-24-2021 Influenza vaccination Flu vaccine (# 1) [employer] Work Phone: Start: 05-17-2021 EGD, Provider: Jaylin Briones, Status: Pen, Time: 11:40 AM EGD, Provider: Jaylin Briones, Status: Pen, Time: 11:40 AM [facility] 1800 Work Phone: Start: 05-17-2021 Patient encounter procedure [facility] Start: 05-11-2021 NPVOMT, Provider: Elizabet Morales, Status: Pen, Time: 2:00 PM NPVOMT, Provider: Elizabet Morales, Status: Pen, Time: 2:00 PM [facility] 1800 Work Phone: Start: 05-11-2021 Patient encounter procedure [facility] [place] Start: 04-26-2021 Patient encounter procedure [facility] Start: 04-25-2021 Patient encounter procedure Gastro [facility] Start: 04-21-2021 End: 04-22-2022 Ondansetron Dispersible 4 mg Oral Tablet Once STAT ; Tablet, Disintegrating (ZOFRAN)DOSE = 4 mg Oral Once, PRN Nausea Start: 21-Apr-2021 End: 21-Apr-2022 Ordered: 21-Apr-2021 Daniela Church Intent [facility] Start: 04-20-2021 Evaluation and management of inpatient [facility] Start: 04-19-2021 Patient encounter procedure [facility] Vascular [place] Start: 04-03-2021 Chest pain Chest pain Didier e: 03-Apr-2021 [facility] Start: 03-30-2021 End: 03-30-2021 Patient encounter procedure 03/30/2021 Appointment Radiology [facility] Start: 03-24-2021 End: 03-24-2022 Lidocaine 5% Topical Ointment 1 application 3 Times a Day ; DOSE = 1 application(s) Topical OnceApply to Rectum Start: 23-Mar-2021 End: 23-Mar-2022 Ordered: 23-Mar-2021 Cheo Tiwari Intent [facility] Start: 03-23-2021 EPV, Provider: Wally Lawton, Status: Pen, Time: 3:45 PM EPV, Provider: Wally Lawton, Status: Pen, Time: 3:45 PM WG-Jpyatbegxx-Senert[facility] e S[facility] 200 Work Phone: Start: 03-23-2021 Patient encounter procedure [facility] Cardiology [place] Start: 03-23-2021 VIRFUVSRINATH, Provider : Wally Lawton, Status: Pen, Time: 3:45 PM [facility] Provider: Wally Lawton, Status: Pen, Time: 3:45 PM [facility] Work Phone: Start: 03-15-2021 NPV, Provider: Viral Amado, Status: Pen, Time: 2:30 PM NPV, Provider: Viral Amado, Status: Pen, Time: 2:30 PM [facility]: Start: 03-15-2021 Patient encounter procedure [facility] [place] Start: 03-14-2021 Patient encounter procedure [facility] Start: 03-03-2021 Patient encounter procedure [facility] Start: 02-21-2021 Patient encounter procedure Cardiology [place] Start: 02-15-2021 Patient encounter procedure Outpatient [facility] [place] Start: 15-Feb-2021 13:00 Lilly Coats Intent [facility] Start: 02-13-2021 Patient encounter procedure [facility] [place] Start: 12-14-2020 Creatinine monitoring Creatinine mon david [place], [place] Start: 12-14-2020 Potassium monitoring Potassium monit oring [place] Start: 05-24-2020 Influenza vaccination Flu vacc ine (Season Ended) [place] Start: 05-24-2019 Influenza vaccination Flu vaccine (# 1) [place] Start: 2016 COLOGUARD (FIT-DNA) COLOGUARD (FIT-D NA) [facility] Start: 2016 Colonoscopy COLONOSCOPY [facility] Start: 2016 COLORECTAL CANCER SCREENING COLORECTAL CANCER SCREENING [facility] Start: [address] COLONOGRAPHY [facility] Start: 2016 FECAL OCCULT BLOOD FECAL OCCULT BLOO D [facility] Start: 2016 Screening for malign ant neoplasm of colon [facility] Start: 2016 SIGMOIDOSCOPY SIGMOIDOSCOPY [facility] Start: 2011 Diabetes screen Diabetes screen [place], [place] Start: 2011 Lipid panel [facility] Start: 2011 Lipid screen Lipid screen [place], [place] Start: 2006 Diabetes screen Diabetes screen [facility] Start: 1993 DTaP/Tdap/Td Vaccine s (1 - Tdap) DTaP/Tdap/Td Vaccines (1 - Tdap) [facility] Start: 1989 HEPATITIS C SCREENING HEPATITIS C SC KAIDEN [facility] Start: 1989 Hepatitis C screening B ON [facility] Start: 1989 HIV SCREENING HIV SCREENING [facility] Start: 1986 HIV screen HIV screen [place], [place] Start: 1986 HIV screening HIV screen [facility] Start: 1983 Adult depression screening assessment DEPRESSION SCREENING [facility] Start: 1983 COVID-19 Vaccine (1) COVID-19 Vaccin e (1) [facility] Work Phone: Start: 1983 Depression Screen Depression Screen [facility] Start: 1977 Pneumococcal 0-64 ye ars Vaccine (1 of 1 - PPSV23) Pneumococcal 0-64 years Vaccine (1 of 1 - PPSV23) [place] Start: 1977 Pneumococcal vaccination Pneumococcal Vaccine(s) (1 - PCV) [facility] Start: 1977 Pneumococcal Vaccine : Pediatrics (0 to 5 Years) and At-Risk Patients (6 to 64 Years) (1 - PCV) Pneumococcal Vaccine: Pediatrics (0 to 5 Years) and At-Risk Patients (6 to 64 Years) (1 - PCV) [facility] Start: 1976 COVID-19 VACCINE (1) COVID-19 VACCIN E (1) [facility] Start: 1972 MMR Vaccines (1 of 1 - Standard series) MMR Vaccines (1 of 1 - Standard series) [facility] Start: 01-19-1972 COVID-19 Vaccine (#1) COVID-19 Vacci ne (#1) [facility] Start: 1971 Hepatitis B Vaccines (1 of 3 - 3-dose series) Hepatitis B Vaccines (1 of 3 - 3-dose series) [facility] Start: 1971 Hepatitis C screening Hepatitis C sc [facility] Work Phone: Start: 1971 Lipid panel Lipid Panel [facility] Start: 1971 Screening for malign ant neoplasm of colon [facility] Start: 1971 Yearly Adult Physical Yearly Adult P hysical [facility] Bilirubin measuremen t, urine [facility] Color of Urine [facility] End: 01-15-2020 Covid-19 Ambulatory Covid-19 Ambulatory Lab Routine Suspected COVID-19 virus infection 1 Occurrences starting 01/15/2020 until 01/15/2020 [facility] [place] Comment on above: 1 Occurrences starti ng 01/15/2020 until 01/15/2020 Covid-19 Ambulatory Covid-19 Amb ulatory Lab Routine Suspected COVID-19 virus infection 01/15/2020 2:43 PM EDT [place] Detection of hemoglobin [facility] EKG 12 Lead [facility] [place] EKG 12 Lead EKG 12 Lead ECG STAT 02/01/2023 12:11 AM EDT [facility] Work Phone: EKG 12 Lead EKG 12 Lead ECG STAT 02/02/2023 7:46 PM EDT [facility] Work Phone: Glucose [Mass/volume ] in Urine by Test strip [facility] History of tooth extraction History of tooth extraction [facility] End: 03-29-2021 Lipase [Enzymatic activity/volume] in Serum or Plasma Lipase Lab STAT One Time for 1 Occurrences starting 03/29/2021 until 03/29/2021 [employer] Work Phone: Comment on above: One Time for 1 Occur rences starting 03/29/2021 until 03/29/2021 Measurement of keton es in urine using dipstick [facility] Patient Education [facility] Work Phone: Patient referral [facility] Work Phone: Protein measurement, urine [facility] Serum Drug Screen Serum Drug Scr een Lab STAT 02/01/2023 1:00 AM EDT [facility] Work Phone: Urinalysis, specific gravity measurement [facility] Urine dipstick for nitrite [facility] Urine dipstick for specific gravity [facility] Urine pH test [facility] End: 05-30-2023 Urnls dip stick/tablet rgnt auto w/o microscopy URINALYSIS,AUTO-IN OFFICE Lab STAT One time for 1 Occurrences starting 05/30/2023 until 05/30/2023 [employer] Work Phone: Comment on above: One time for 1 Occur rences starting 05/30/2023 until 05/30/2023 Urobilinogen concentration, test strip measurement [facility] End: 03-29-2021 US ABDOMEN LIMITED US ABDOMEN LIMITED Imaging STAT Once for 1 Occurrences starting 03/29/2021 until 03/29/2021 [employer] Work Phone: Comment on above: Once for 1 Occurrenc es starting 03/29/2021 until 03/29/2021 US ABDOMEN LIMITED US ABDOMEN LI MITED Imaging STAT 03/29/2021 8:39 PM EDT [employer] Work Phone: End: 03-29-2021 XR CHEST PORTABLE XR CHEST PORTABLE Imaging STAT Once for 1 Occurrences starting 03/29/2021 until 03/29/2021 [employer] Work Phone: Comment on above: Once for 1 Occurrenc es starting 03/29/2021 until 03/29/2021 XR CHEST PORTABLE XR CHEST RITO BLE Imaging STAT 03/29/2021 7:32 PM EDT [employer] Work Phone: Immunizations Immunization Date Immunization Notes Care Provider [facility] 09-08-2021 tuberculin skin test ; purified protein derivative solution, intradermal Riley Crawford MD Work Phone: [facility] 11-05-2013 tetanus toxoid, redu mohamud diphtheria toxoid, and acellular pertussis vaccine, adsorbed Nessa Green [facility] Payers Date Payer Category Payer Medicaid [id number] 2023 Medicaid [id number] 2022 Unknown 2022 Unknown 0000 2021 Medicaid [place] [employer] MED[place] [id number] 2021-Present [phone] [address] [place] [address] Medicaid [id number] [id number] 2018 Medicaid MEDICAID - OTHER STATE MEDICAID OUT OF STATE x 2018-Present x [id number] [id number] 2014 Medicaid [id number] 1.13.239.2.7.3.6 [id number] 2014 Medicaid 1 [id number] [id number] 2008 Self-pay 1971 Unknown [id number] 2.16.840.1.307274.3.579.2.182 1971 Unknown [id number] 2.16.840.1.452090.3.579.2.182 1971 Unknown [id number] 2.16.840.1.079279.3.579.2.182 1971 Unknown [id number] 2.16.840.1.879658.3.579.2.598 1971 Unknown [id number] 2.16.840.1.853186.3.579.2.598 1971 Unknown [id number] 2.16.840.1.520214.3.579.2.598 1971 Unknown [id number] 2.16.840.1.707434.3.579.2.159 1971 Unknown [id number] 2.16.840.1.669217.3.579.2.1069 1971 Unknown [id number] 2.16.840.1.190794.3.579.2.204 1971 Unknown [id number] 2.16.840.1.159496.3.579.2.204 1971 Unknown [id number] 2.16.840.1.034883.3.579.2.204 1971 Unknown [id number] 2.16.840.1.248576.3.579.2.204 1971 Unknown [id number] 2.16.840.1.696790.3.579.2.204 1971 Unknown [id number] 2.16.840.1.774942.3.579.2.175 1971 Unknown [id number] 2.16.840.1.163744.3.579.2.175 1971 Unknown [id number] 2.16.840.1.566781.3.579.2.175 1971 Unknown [id number] 2.16.840.1.206097.3.579.2.175 1971 Unknown [id number] 2.16.840.1.176370.3.579.2.693 1971 Unknown [id number] 2.16.840.1.521185.3.579.2.693 1971 Unknown [id number] 2.16.840.1.278186.3.579.2.732 1971 Unknown [id number] 2.16.840.1.153406.3.579.2.356 1971 Unknown [id number] 2.16.840.1.592590.3.579.2.356 1971 Unknown [id number] 2.16.840.1.041371.3.579.2.356 1971 Unknown [id number] 2.16.840.1.520104.3.579.2.727 1971 Unknown [id number] 2.16.840.1.903283.3.579.2.174 1971 Unknown [id number] 2.16.840.1.226628.3.579.2.174 1971 Unknown [id number] 2.16.840.1.476950.3.579.2.727 1971 Unknown [id number] 2.16.840.1.110691.3.579.2.727 1971 Unknown [id number] 2.16.840.1.890383.3.579.2.727 1971 Unknown [id number] 2.16.840.1.390928.3.579.2.727 1971 Unknown [id number] 2.16.840.1.084697.3.579.2.727 1971 Unknown [id number] 2.16.840.1.142015.3.579.2.727 1971 Unknown [id number] 2.16.840.1.313956.3.579.2.727 1971 Unknown [id number] 2.16.840.1.630341.3.579.2.727 1971 Unknown [id number] 2.16.840.1.194209.3.579.2.727 1971 Unknown [id number] 2.16.840.1.451742.3.579.2.727 1971 Unknown [id number] 2.16.840.1.143817.3.579.2.727 1971 Unknown [id number] 2.16.840.1.450795.3.579.2.727 1959 Unknown [id number] 1.2.840.703660.1.13.239.2.7.3.6 64806.315 Unknown [id number] Unknown [id number] 2.16.840.1.463325.3.579.2.531 Unknown [id number] 2.16.840.1.899325.3.579.2.531 Unknown [id number] 2.16.840.1.366361.3.579.2.531 Unknown [id number] 2.16.840.1.677104.3.579.2.531 Social History Date Type Detail Facility Tobacco smoking status [facility] Unknown if ever smoked [facility] Start: 1970 Sex Assigned At Male F [facility] Start: 01-14-2020 End: 05-05-2023 Tobacco smoking status NMIS Current some day smoker [facility] History of tobacco use Cigar Smoker [place] Start: 01-14-2020 End: 09-08-2021 Alcohol intake Current drinker of alcohol (finding) [place] Start: 01-14-2020 Alcohol Comment occas [place], [place] Start: 1970 [facility] Assigned At [facility] to SARS-CoV-2 (event) Unable to assess [facility] Start: 09-29-2018 End: 01-17-2020 Tobacco smoking status NHIS [facility] Start: 12-13-2019 End: 2024 Tobacco smoking status NHIS [facility] Start: 05-18-2019 Alcohol intake Yes [facility] Tobacco smoking consumption unknown [facility] Start: 03-29-2021 End: 02-01-2023 Homeless Homeless (V60.0) [facility] Start: 03-29-2021 End: 09-08-2021 Tobacco use and exposure Never used [employer] Exposure to SARS-CoV-2 (event) Not sure [employer] History of tobacco use Cigarette Smoker [facility] Start: 02-04-2020 End: 02-01-2023 History SDOH Alcohol Std Drinks 1 [facility] Start: 02-04-2020 End: 02-02-2023 History SDOH Alcohol Binge 2 [facility] Start: 02-21-2021 History SDOH Alcohol Comment pt sts a beer a day. daily [facility] History of tobacco use Current smoker [facility] Work Phone: Start: 02-01-2023 History SDOH Alcohol Std Drinks 0 [facility] Work Phone: Start: 02-02-2023 History SDOH Alcohol Frequency 4 [facility] Work Phone: Start: 09-08-2021 Tobacco smoking status NMIS Smokes tobacco daily [facility] Tobacco smokes a cigar a bout once a month Tobacco Use:. Cigars [facility] Comment on above: denies at this time Tobacco smoking status No Smoking Status Entered [facility] Start: 07-14-2024 Tobacco smoking status NHIS Current Light tobacco smoker [facility] Goals Date Patient Goal Desired Activity /State Functional Status Date Assessment Result Facility 08-07-2024 Functional Status N/A [facility] 08-02-2024 Functional Status N/A [facility] 2024 Functional Status N/A [facility] 07-17-2024 Functional Status N/A [facility] 07-16-2024 Functional Status N/A [facility] 07-11-2024 Functional Status N/A [facility] 07-09-2024 Functional Status N/A [facility] Functional observable [facility] Mental Status Date Assessment Result Facility 07-05-2021 Cognitive functions 16769:32 [facility] 03-02-2021 Cognitive functions 36274:40 [facility] Clinical Notes 07-24-2020 to 08-07-2024 Note Date & Type Note Facility 08-07-2024 Evaluation + Plan note Extrac sebastián from: Title:ED Note Author:Xena CHURCH, Piyush Martines te:08/07/24 Medicine refill (Z76.0: [facility] for issue of repeat prescription) Orders: nitroglycerin, See Instructions, PRN hypertension, 1 tab(s) SubLingual q5min/htn, # 15 tab(s), Refills(s) 0, Pharmacy: [id number], 167.6, cm, 08/07/24 11:50:00 EST, Height/Length Dosing, 96, kg, 08/07/24 11:50:00 EST, Weight Dosing Future Appointments Appointment Date:08/19/2024 12:00:00 PM Scheduled Provider: Location:[facility] Surgical Services Appointment Type:Surgery FT Appointment Date:09/09/2024 10:15:00 AM Scheduled Provider:Darleen Mahajan MD Location:[facility] Appointment Type:URO New Patient [facility] 11-15-2024 Hospital Discharge instructions Patient Education 08/07/2024 11:58:41 Hypertension, Adult Hypertension, Adult High blood pressure [...] follow-up visits. This is important. Medicines Take hlsi-sxy-jwotkak and prescription medicines only as told by [...] provider. Document Revised: 07/17/2022 Document Reviewed: 07/17/2022 Elsevier Patient Education 2023 [employer]. Follow Up Care 08/07/2024 11:45:18 With:Yang VALENCIA Address: [address] [place] [address] Business (1) When:08/10/2024 11:54:58 [facility] 11-15-2024 NoteED Patient Education Note Cardiovascular Hypertension, Adult [...] these risk factorsare under your control, including: ??? Smoking. ??? Not getting enough exercise or physical activity. ??? Being overweight. ??? Having too much fat, sugar, calories, or salt (sodium) in your diet. ??? Drinking too much alcohol. Other risk factors include: ??? Having a personal history of heart disease, diabetes, high cholesterol, or kidney disease. ??? Stress. ??? Having a family history of high blood pressure and high cholesterol. ??? Having obstructive sleep apnea. ??? Age. The risk increases with age. What are the signs or symptoms? High blood pressure may not cause symptoms. Very high blood pressure (hypertensive crisis) may cause: ??? Headache. ??? Fast or irregular heartbeats (palpitations). ??? Shortness of breath. ??? Nosebleed. ??? Nausea and vomiting. ??? Vision changes. ??? Severe chest pain, dizziness, and seizures. How [...] risk factors, you may be asked to: ??? Return on a different day to have your blood pressure checked again. ??? Monitor your blood pressure at home for [...] your blood pressure under control and if: ??? Your systolic blood pressure is above 130. ??? Your diastolic blood pressure is above 80. Your personal target blood pressure may vary depending on your medical conditions, your age, and other factors. Follow these instructions at home: Eating and drinking ??? Eat a diet that is high in [...] higher in sodium, added sugar, and fat. ??? Reduce your daily sodium intake. Many people with hypertension should eat less than 1,500 mg ofsodium a day. ??? Do not drink alcohol if: ? Your health care provider tells you not to drink. ? You are , may be , or are planning to become . ??? If you drink alcohol: ? Limit how much you have to: ? 0?1 drink a day for women. ? 0?2 drinks a day for men. ? Know how much alcohol is in your drink. In the [place] one drink equals one 12 oz (more content notincluded)...[facility]11-11-2024 Hospital Discharge instructions Patient Education 08/02/2024 23:47:34 Panic Attack, Djef-sj-Jrpz Panic Attack A panic attack is when you suddenly feel very afraid, uncomfortable, or nervous (anxious). A panic attack can happen when you are scared, or it may happen for no reason. A panic attack can feel like a heart attack or stroke. See your doctor when you have a panic attackto make sure you are not having a heart attack or stroke. What are the causes? Experiencing things that threaten your life, such as a war. Feeling worried or nervous for a long time (anxiety disorder). Being sad (depressed). Panic disorder. Certain medical conditions. Other causes may include: Certain medicines. Taking certain supplements. Illegal drugs. What increases the risk? Having another mental health condition. Using alcohol or drugs. Being under a lot of stress. Having events in your life that cause worry and sadness. What are the signs or symptoms? A panic attack: Starts suddenly. May last 5 10 minutes. Symptoms include one or more of these: A pounding heart. A feeling that your heart is beating in an unusual way or faster than normal (palpitations). Sweating or shaking. Feeling short of breath. Chest pain. Feeling like you may vomit (nauseous). Feeling dizzy or like you might faint. Other symptoms may include: Chills or hot flashes. Numbness or tingling in your lips, hands, or feet. Feeling confused. Fear of losing control. Fear of dying. How is this treated? A panic attack is a symptom of another condition. Treatment depends on the cause of the panic attack. If the cause is a medical problem, your doctor will treat that problem or refer you to a specialist. If the cause is emotional, you may be given medicines or referred to a counselor. If the cause is a medicine, your doctor may tell you to stop the medicine, change your dose, or take a different medicine. If the cause is an illegal drug, treatment may involve letting the drug wear off and taking medicine to help the drug leave your body or to stop its effects. ?Attacks caused by heavy drug use may continue even if you stop using the drug. Most panic attacks go away after the cause is treated. Follow these instructions at home: Alcohol use Do not drink alcohol if: ?Your doctor tells you not to drink. ?You are , may be , or are planning to become . If you drink alcohol: ?Limit how much you have to: ?0 1 drink a day for women. ?0 2 drinks a day for men. Know how much alcohol is in your drink. In the [place] one drink equals one 12 oz bottle of beer (355mL), one 5 oz glass of wine (148 mL), or one 1 oz glass of hard liquor (44 mL). General instructions Take qkej-boc-vjtwoxy and prescription medicines only as told by your doctor. If you feel worried or nervous, try not to have caffeine. Take good care of your health. To do this: ?Eat healthy. Make sure to eat fresh fruits and vegetables, whole grains, lean meats, and low-fat dairy. ?Get enough sleep. Try to sleep for 7 8 hours each night. ?Exercise. Try to be active for 30 minutes 5 or more days a week. Do not smoke or use any products that contain nicotine or tobacco. If you need help quitting, ask your doctor. Keep all follow-up visits. Where to find more information Substance Abuse and Mental Health Services Administration (SAMHSA): samhsa.gov National Perry of Mental Health (NIMH): www.nimh.nih.gov Contact a doctor if: Your symptoms do not get better. Your symptoms get worse. You are not able to take your medicines as told. Get help right away if: You have thoughts of hurting yourself or others. Get help right away if you feel like you may hurt yourself or others, or have thoughts about takingyour own life. Go to your nearest emergency room or: Call 911. Call the National Suicide Prevention Lifeline at or 199. This is open 24 hours a day. Text the Crisis Text Line at 723942. Summary A panic attack is when you suddenly feel very afraid, uncomfortable, or nervous (anxious). See your doctor when you have a panic attack to make sure that you do not have another serious problem. If you feel like you may hurt yourself or others, get help right away. Call 911. This information is not intended to replace advice given to you by your health care provider. Make sure you discuss any questions you have with your health care provider. Document Revised: 04/19/2022 Document Reviewed: 04/19/2022 Notifixious Patient Education 2023 [employer]. Follow Up Care 08/02/2024 20:38:21 With:[facility] Address:Unknown When:08/05/2024 Comments:Follow-up with your primary care doctor and mental health for further evaluation management. With:Yang VALENCIA Address: [address] [place] [address] Business (1) When:08/05/2024 [facility] 11-10-2024 NoteED Patient Education Note Mental and Behavioral Health Panic Attack A panic attack is when you suddenly feel very afraid, uncomfortable, or nervous (anxious). A panic attack can happen when you are scared, or it may happen for no reason. A panic attack can feel like a heart attack or stroke. See your doctor when you have a panic attackto make sure you are not having a heart attack or stroke. What are the causes? Experiencing things that threaten your life, such as a war. ??? Feeling worried or nervous for a long time (anxiety disorder). ??? Being sad (depressed). ??? Panic disorder. ??? Certain medical conditions. Other causes may include: ??? Certain medicines. ??? Taking certain supplements. ??? Illegal drugs. What increases the risk? Having another mental health condition. ??? Using alcohol or drugs. ??? Being under a lot of stress. ??? Having events in your life that cause worry and sadness. What are the signs or symptoms? A panic attack: ??? Starts suddenly. ??? May last 5?10 minutes. Symptoms include one or more of these: ??? A pounding heart. ??? A feeling that your heart is beating in an unusual way or faster than normal (palpitations). ??? Sweating or shaking. ??? Feeling short of breath. ??? Chest pain. ??? Feeling like you may vomit (nauseous). ??? Feeling dizzy or like you might faint. Other symptoms may include: ??? Chills or hot flashes. ??? Numbness or tingling in your lips, hands, or feet. ??? Feeling confused. ??? Fear of losing control. ??? Fear of dying. How is this treated? A panic attack is a symptom of another condition. Treatment depends on the cause of the panic attack. ??? If the cause is a medical problem, your doctor will treat that problem or refer you to a specialist. ??? If the cause is emotional, you may be given medicines or referred to a counselor. ??? If the cause is a medicine, your doctor may tell you to stop the medicine, change your dose, ortake a different medicine. ??? If the cause is an illegal drug, treatment may involve letting the drug wear off and taking medicine to help the drug leave your body or to stop its effects. ? Attacks caused by heavy drug use may continue even if you stop using the drug. Most panic attacks go away after the cause is treated. Follow these instructions at home: Alcohol use ??? Do not drink alcohol if: ? Your doctor tells you not to drink. ? You are , may be , or are planning to become . ??? If you drink alcohol: ? Limit how much you have to: ? 0?1 drink a day for women. ? 0?2 drinks a day for men. ??? Know how much alcohol is in your drink. In the [place].S., one drink equals one 12 oz bottle of beer (355 mL), one 5 oz glass of wine (148 mL), or one 1? oz glass of hard liquor (44 mL). General instructions ??? Take nbxy-ebo-btwppcb and prescription medicines only as told by your doctor. ??? If you feel worried or nervous, try not to have caffeine. ??? Take good care of your health. To do this: ? Eat healthy. Make sure to eat fresh fruits and vegetables, whole grains, lean meats, and low-fat dairy. ? Get enough sleep. Try to sleep for 7?8 hours each night. ? Exercise. Try to be active for 30 minutes 5 or more days a week. ??? Do not smoke or use any products that contain nicotine or tobacco. If you need help quitting, ask your doctor. ??? Keep all follow-up visits. Where to find more information ??? Substance Abuse and Mental Health Services Administration (SAMHSA): samhsa.gov ??? National Perry of Mental Health ([facility]): www.[facility] behavioral health centerh.nih.gov Contact a doctor if: ??? Your symptoms do not get better. ??? Your symptoms get worse. ??? You are not able to take your medicines as told. Get help right away if: ??? You have thoughts of hurting yourself or others. Get help right away if you feel like you may hurt yourself or others, or have thoughts about takingyour own life. Go to your nearest emergency room or: ??? Call 911. ??? Call the National Suicide Prevention Lifeline at or 885. This is open 24 hours aday. ??? Text the Crisis Text Line at 572040. Summary ??? A panic attack is when you suddenly feel very afraid, uncomfortable, or nervous (anxious). ??? See your doctor when you have a panic attack to make sure that you do not have another serious problem. ??? If you feel like you may hurt yourself or others, get help right away. Call 911. This information is not intended to replace advice given to you by your health care provider. Make sure you discuss any questions you have with your health care provider. Document Revised: 04/19/2022 Document Reviewed: 04/19/2022 Elsevier Patient Education ? 2023 [facility] Evaluation + Plan noteExtracted from: Title:ED Note Author:Denicourtney STRAUSSPasquale Date :08/02/24 Anxiety (F41.9: Anxiety diso rder, unspecified) Orders: CBC w/ Auto Diff Communication Order Comprehensive Metabolic Panel Consult to Mental Health Drug Screen Urine ECG 12 Lead Adult eGFR Ethanol Level UA with Cult Rflx Future Appointments Appointment Date:08/19/2024 12:00:00 PM Scheduled Provider: Location:[facility] Appointment Type:Surgery FT [facility] 10-26-2024 Evaluation + Plan noteExtracted from: Title:ED Note Author:Neil Alexander DO Date: Anxiety (F41.9: Anxiety diso rder, unspecified) [facility] 10-26-2024 Hospital Discharge instructions Patient Education 07/18/2024 00:40:54 [...] your provider. Avoid caffeine, alcohol, and certain jzed-rlu-ukzrvks cold medicines. These may make you feel worse. Ask your pharmacist which medicines to avoid. General instructions Take jggp-tmv-sllusqg and prescription medicines only as told by [...] Depression Association of [place] (ADAA): adaa.org National [place] on Mental Illness (GLENNY): glenny.org Contact a [...] the National Suicide Prevention Lifeline at or 250. This is open 24 hours a day. Text the Crisis Text Line at 479638. This information is not intended to replace advice given to you by your health care provider. Make sure you discuss any questions you have with your health care provider. Document Revised: 06/18/2023 Document Reviewed: 12/31/2021 Notifixious Patient Education 2023 [employer]. Follow Up Care 07/17/2024 20:34:54 With:Elizabet Mackay Address: [address] [place] [address] When:07/21/2024 Comments:Call the office of your primary [...] you develop any new or worsening symptoms. [facility] 10-26-2024 NoteED Patient Education Note Mental and [...] Do not use any (more content not included)...[facility] 07-17-2024 Hospital Discharge instructions Patient Education 07/16/2024 [...] care for your mental health from: National [place] on Mental Illness (GLENNY): www.glenny.org National Perry of Mental Health: www.nimh.nih.gov Centers for Disease [...] the National Suicide Prevention Lifeline at or 417 in the U.S.. This is open 24hours a day. Text the Crisis Text Line at 887766. Summary Mental health is not just the [...] provider. Document Revised: 04/05/2022 Document Reviewed: 03/30/2022 Notifixious Patient Education 2023 [employer]. Follow Up Care 07/16/2024 21:12:56 With:[facility] Address:Unknown When:07/19/2024 Comments:You have an appointment at the [facility] tomorrow at 10 AM. With:Yang VALENCIA Address: [address] [place], [place] [id number] [facility] (1) When:07/19/2024 Comments:Call the office of [...] you develop any new or worsening symptoms. [facility] 10-24-2024 NoteED Patient Education Note Mental and [...] with emotions. Where to (more content not included)...[facility] Hospital Discharge instructions Patient Education 07/11/2024 14:18:44 [...] your friends, family, a trusted colleague, and spinning room worker about your injury, symptoms, and restrictions. Ask them to watch for any problems that are new or get worse. General instructions Take kica-cmy-lcgstic and prescription medicines only as told by [...] provider. Document Revised: 06/27/2023 Document Reviewed: 06/27/2023 Notifixious Patient Education 2023 [employer]. 07/11/2024 14:18:44 Palpitations Palpitations Palpitations are feelings [...] ask your health careprovider. General instructions Take iiut-gia-judhktd and prescription medicines only as told by [...] provider. Document Revised: 01/31/2022 Document Reviewed: 01/31/2022 Notifixious Patient Education 2023 [employer]. Follow Up Care 07/11/2024 10:44:14 With:Rao Samayoa Address: [address] [place] [phone] Business (1) When:07/14/2024 14:00:32 Comments:Follow-up with Dr. Samayoa for Holter monitor placement and Dr. Valencia as discussed. Return to the emergency room if your palpitation recurs, headache gets worse or any new symptoms. With:Yang VALENCIA Address: [address] [place] [address]- Business (1) When:Within 3 Day(s) [facility] 10-19-2024 NoteED Patient Education Note Emergency Medicine [...] health care provider. General instructions ? Take frrf-noo-ovbhlwv and prescription medicines only as told by [...] provider. Document Revised: 01/31/2022 Document Reviewed: 01/31/2022 Notifixious Patient Education ? 2023 Fear Hunters. Neurology Head Injury, Adult There are many [...] ? Nausea or vomit (more content not included)...[facility] 07-09-2024 Hospital Discharge instructions Patient Education 07/09/2024 [...] follow-up visits. This is important. Medicines Take wean-rfw-tpppgpb and prescription medicines only as told by [...] provider. Document Revised: 07/17/2022 Document Reviewed: 07/17/2022 Notifixious Patient Education 2023 [employer] Hunters. Follow Up Care 07/09/2024 18:18:59 With:Gisell Grady Address: [address] [place] [address], [address] [place] [phone] Business (1) When:07/12/2024 19:40:55 Comments:follow with GI for your abdominal pain With:Yang VALENCIA Address: [address] [place] [phone]- Business (1) When:Within 3 Day(s) [facility] 10-17-2024 NoteED Patient Education Note Cardiovascular Hypertension, [...] glass of wine ( (more content not included)...[facility] Hospital Discharge instructions ED Discharge Education Evaluation [...] Primary Care Provider : Viral Amado (PCP) ([facility]30) - Internal Medicine, Physician [facility] 09-07-2023 Hospital Discharge instructions* Discharge Instructions* Riley Crawford MD - 05/30/2023 5:14 PM EDT Keep yourself well hydrated. Avoid alcohol. See your physician this week. Procedures done during this visit: None * Attachments The following attachments cannot be sent through Care Everywhere. * Dizziness, Nonvertigo, Discharge Instructions (Egyptian) documented in this [id number] Physician Emergency department Note* Riley Crawford MD - 05/30/2023 1:58 PM EDT EMERGENCY DEPARTMENT - VISIT NOTE HISTORY OF PRESENT ILLNESS Chief Complaint Patient presents with Dizziness Dizziness upon standing Instrument Technologist: not needed - patient preferred language is Egyptian. 52-year-old male was apparently on a park bench and called for EMS for dizziness. [facility] I asked what he was doing there and he states that he was hiking . However he is accompanied by a huge bag full of his belongings. I asked where he lives or if he has a homeand he states that he lives in [place]. Yesterday he was seen at 3 different [facility] Emergency department's, the 1st time at [facility] where he apparently was acting unruly at a gas stationand ended up signing out AMA. He was then seen at [facility] for dark stools and palpitations and was treated and released and finally he was evaluated at [facility] and treated and released. Indeed he has [...] as a vasoconstrictor History provided by: PatientLanguage translator interpreter used: No REVIEW OF SYSTEMS Review of [...] Medical History: Diagnosis Date Bipolar 1 disorder ([facility]) Homeless Thoracic aortic aneurysm ([facility]) Patient Active Problem List: BPPV (benign paroxysmal positional vertigo) [H81.10] Vestibular neuritis [H81.20] Bipolar disorder ([facility]) [F31.9] Essential hypertension [I10] Paresthesia [R20.2] Homeless [Z59.00] Pulmonary embolism ([facility]) [I26.99] Aneurysm of thoracic aorta ([facility]) [I71.20] Anxiety [F41.9] Renal artery stenosis ([facility]) [I70.1] Pertinent Social History: Social History Tobacco [...] MD Course: ED Course as of 05/30/23 171 Michaelle May 30, 2023 171 Patient is smiling, [...] on the discharge paperwork. Riley Crawford MD [id number] Emergency department Note* Riley Crawford MD - 05/30/2023 1:58 PM EDT EMERGENCY DEPARTMENT - VISIT NOTE HISTORY OF PRESENT ILLNESS Chief Complaint Patient presents with Dizziness Dizziness upon standing Instrument Technologist: not needed - patient preferred language is Egyptian. 52-year-old male was apparently on a park bench and called for EMS for dizziness. He states [facility] I asked what he was doing there and he states that he was hiking . However he is accompanied by a huge bag full of his belongings. I asked where he lives or if he has a homeand he states that he lives in [place]. Yesterday he was seen at 3 different [facility] Emergency department's, the 1st time at [facility] where he apparently was acting unruly at a gas stationand ended up signing out AMA. He was then seen at [facility] for dark stools and palpitations and was treated and released and finally he was evaluated at [facility] and treated and released. Indeed he has [...] as a vasoconstrictor History provided by: PatientLanguage translator interpreter used: No REVIEW OF SYSTEMS Review of [...] Medical History: Diagnosis Date Bipolar 1 disorder ([facility]) Homeless Thoracic aortic aneurysm ([facility]) Patient Active Problem List: BPPV (benign paroxysmal positional vertigo) [H81.10] Vestibular neuritis [H81.20] Bipolar disorder ([facility]) [F31.9] Essential hypertension [I10] Paresthesia [R20.2] Homeless [Z59.00] Pulmonary embolism ([facility]) [I26.99] Aneurysm of thoracic aorta ([facility]) [I71.20] Anxiety [F41.9] Renal artery stenosis ([facility]) [I70.1] Pertinent Social History: Social History Tobacco [...] Course: ED Course as of 05/30/23 1719 [facility] May 30, 2023 737 Patient is smiling, has been cooperative, not [...] paperwork. Riley Crawford MD documented in this [id number] Hospital Discharge instructions ED Discharge Education Evaluation [...] Primary Care Provider : Viral Amado (PCP) ([facility]) - Internal Medicine, Physician [facility] 08-19-2023 NotePROCEDURE: CHEST 2 VIEW - WXR 0020 REASON FOR EXAM: Palpitations RESULT: Patient Name: HOSEA ALVAREZ STUDY: CHEST 2 VIEW 05/11/2023 3:46 pm INDICATION: Palpitations COMPARISON: 01/29/2023 ACCESSION NUMBER(S): [id number] ORDERING CLINICIAN: THALIA ROBERTO TECHNIQUE: Two views chest FINDINGS: Cardiomediastinal silhouette is mildly enlarged. Aorta is tortuous. No infiltrate or effusion identified. Mild multilevel anterior osteophyte formation midthoracic spine. No compression deformity demonstrated. IMPRESSION: No acute cardiopulmonary process. Dictation workstation: [id number] Original Interpreting Physician: TARAN PINA MD Original Transcribed by/Date: MMODAL May 11 2023 3:18P Original Electronically Signed by/Date: TARAN PINA MD May 11 2023 3:59P Addendum Interpreting Physician: Addendum Transcribed by/Date: NO ADDENDUM Addendum Electronically Signed by/Date: SYNGO [id number] History of Present illness Narrative* Saima Mattson - 02/01/2023 4:28 PM EDT CLINICAL PHARMACY NOTE: MEDS TO BEDS Total # of Prescriptions Filled: 3 The following medications were delivered to the patient: Docusate 100mg Polyeth glyc powder Lidocaine soln Additional Documentation: Picked up by Annette Olmos documented [facility] Work Phone: 1(808) 859-835705-03-2023 Hospital Discharge instructions ED Discharge Education Evaluation [...] Primary Care Provider : Viral Amado (PCP) ([facility]) - Internal Medicine, Physician [facility] 04-24-2023 NoteED Nursing Discharge Summary Entered On: 01/14/2023 11:09 EDT Performed On: 01/14/2023 11:05 EDT by Kaleigh Sanchez RN IN Information [id number] ED IV's : No IV ED IV Site Assessment : No IV ED Vitals Completed : Yes ED Final Assessment Completed : Yes ED Progress Note Completed : Yes Complete all PRN/Pain response forms? : N/A ED Disassociate Patient from Monitor : Yes Updated Depart Time : Yes ED Belongings sent w patient [id number] : Not applicable Kaleigh Sanchez RN - [...] Kaleigh Sanchez RN - 01/14/2023 11:09 EDT [facility]04-01-2022 Miscellaneous Notes* Telephone Encounter - Tere Parker - 12/22/2021 12:00 PM EDT Patient phones requesting refills as follows: Pending Prescriptions Disp Refills METOPROLOL TARTRATE 25 MG TABLET 90 tablet 5 Sig: Take one pill twice a day and may take additional pill as needed JOSE: No Please review and advise. [facility]re Parker [facility] NoteChart Update Fireperson received an email communication from Dr. Viral Amado explaining that patient is currently in [place] receiving treatment there. Fireperson agreed to contact compliance investigator with whom patient has beencommunicating to inform her of this change in treatment. Fireperson to follow up next week. Signatures Electronically signed by : STONE Trent; Oct 27 2021 3:29PM EST (Author) [id number] Hospital Discharge instructions Patient Transfer Information from [...] Primary Care Provider : Viral Amado (PCP) ([facility]574) - Internal Medicine, Physician [facility] 11-20-2021 History [...] endorsing cardiology and vascular surgery visits in [place], [place] and [place] over the past 1 year. He has had multiple ED visits and some hospitalizations with various and duplicate testing. He most recently reports going to the [facility] for aCT to evaluate his aorta. He notes compliance with medication although is taking Clonidine 'like candy and has run out of Losartan about 3 day ago. 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 He notes some atypical and nonexertional chest pain and occasional palpitations and is requesting several tests. He is active and rides his bicycle for exercise and as his mode of transportation. He denies any symptoms specific to activity. The patient denies any shortness of breath, PND, orthopnea, lightheadedness, syncope, lower extremity edema or bleeding problems.KP-Iynmbyfmji-Wcssx [facility] Work Phone: 1(638) 429-507611-14-2021 Hospital Discharge instructions ED Discharge Education Evaluation [...] 08/06/2021 11:11 AM: * LOC : Alert [facility] 11-05-2021 Hospital Discharge instructions ED Discharge [...] * Patient stated Primary Care Provider : [facility] 11-03-2021 Hospital Discharge instructions Patient Transfer Information from 07/26/2021 3:16 PM: * LOC : Alert [facility] 10-22-2021 Hospital Discharge instructions Patient Transfer Information from 07/14/2021 12:20 PM: * LOC : Alert Physician Follow-up Plan/Appointments from 07/14/2021 12:20 PM: * Patient stated Primary Care Provider : [facility] 10-21-2021 Hospital Discharge instructions Patient Transfer Information from 07/13/2021 3:40 PM: * LOC : [facility] 10-20-2021 Hospital Discharge instructions ED Discharge [...] Primary Care Provider : PCP, Other (PCP) (PNP 4301) - Medical [facility] 10-18-2021 Hospital Discharge instructions Patient Transfer Information from 07/10/2021 12:01 PM: * LOC : [facility] 10-18-2021 History of Present illness Narrative* [...] stenosis, alcohol abuse, pulmonary embolism presents to [facility] urgent care for 8/10 left scapular pain. Pain started about 1 hour ago. It has only been in the back. No chest pain, shortness of breath,arm, jaw or shoulder pain, vision changes, fatigue, dyspnea on exertion, headache. [facility] today for evaluation but states his wait time exceeded his expectations to he left and came hereto urgent care. * PMHx includes he was admitted for chest pain 07-05 at [facility]. He had some increased troponin elevation and [...] up has appointment with Dr. Beckford, his shoe polisher tomorrow. [facility] Work Phone: 1(969) 903-374610-13-2021 NoteSend Summary: Discharge Summary Providers: Provider RoleProvider Name Santa Hurtado Daniel R ConsultingStefano, Gregory PrimaryDavid, Joel Note Recipients: Viral Amado DO - [id number] [Preferred] Discharge: Summary: Admission Date: .05-Jul-2021 01:00:00 Discharge Date: 05-Jul-2021 Attending Physician at Discharge: Elgin Lambert Admission Reason: Atypical chest pain, palpitations(1) Final Discharge Diagnoses: Elevated troponin level Procedures: none Condition at Discharge: Satisfactory Disposition at Discharge: .Home Vital Signs: T PRBPSpO2 [id number]/8695% Date/Time07/05 5: 5: 5: 8: 5:16 Range(36.6C - 36.7C ) (57 - 67 ) (16 - 16 ) (124 - 137 )/ (73 - 86 ) (94% - 95% ) Date: Weight/Scale Type:Height: 05-Jul-2021 01:5386.4 kg / jgcjcwnu914.1 cm Physical Exam: Physical Exam on day [...] get it all done with his outpatient shoe polisher. He was discharged to home in stable [...] Atorvastatin 40mg daily Follow up with your shoe polisher Discharge Medications: Home Medication losartan 50 mg [...] References: 1. Data Referenced From Consult-Cardiology 05-Jul-2021 11:35[facility]10-13-2021 NoteHistory of Present Illness: HPI: HOSEA ALVAREZ is a 50 year old Male with a hx of bipolar disorder, thoracic aortic aneurysm, HTN, ELIANA, alcohol abuse, who was admitted as a transfer for chest pain. Pt is a very difficult historian as he is very tangential and cannot answer direct questions. Apparently he began having back pain yesterday. [place] and [place] them, and was brought to an outside hospital where troponin was elevated. He was started on a heparin drip and sent to [place] for cardiology evaluation. He denies shortness of [...] wanted to call his cardiologists office [place] [facility]. Although he does have a hx of [...] a day. Objective: Objective Information: T PRBPSpO2 [id number]/8695% Date/Time07/05 5: 5: 5: 8: 5:16 Range(36.6C [...] 07/05/2021 09:28 NA+ Cl (more content not included)...[facility]09-29-2021 Note UHFFLREFN_1st 6 Month Referral 6 TvfRT-Qofuidwlunaszxsr-Asocunc 6 [facility] Work Phone: [phone] NoteUHFFLVN1 of 6 Visits-Max 6 Visits/Referral Each 6 Mo PoutfvKD-Ovhiqfzxswbnpifn-Bffthvu 6 [facility] Work Phone: [phone] [facility], will task once department is set up with [address] Work Phone: [phone] NoteUHFFLREFN_1st 6 Month Referral [address] [place] [address] Work Phone: [phone] NoteUHFFLVN1 of 6 Visits-Max 6 Visits/Referral Each 6 Mo [facility] Work Phone: [phone] [facility] no [facility] yet, will task once department is set up with [facility] Work Phone: [phone] NoteUHFFLREFN_1st 6 Month Referral 6 [address] [facility] [address] Work Phone: [phone] NoteUHFFLVN1 of 6 Visits-Max 6 Visits/Referral Each 6 [address] Work Phone: [phone] NoteUHFFLOSCMC- no referral yet, will task MD once department is set up with usMP-[address] Work Phone: [phone] NoteUHFFLREFN_1st 6 Month Referral 6 [facility] Work Phone: [phone] NoteUHFFLVN1 of 6 Visits-Max 6 Visits/Referral Each 6 Mo [facility] Work Phone: [phone] NoteUHFFLOSC- no referral yet, will task MD once department is set up with [facility] Work Phone: [phone] NoteUHFFLREFN_1st 6 Month Referral 6 MosMG- [facility] [address] Work Phone: [phone] NoteUHFFLVN1 of 6 Visits-Max 6 Visits/Referral Each 6 Mo Period-[facility] [address] Work Phone: [phone] NoteUHFFLOSC- no referral yet, will task MD once department is set up with [facility] [address] Work Phone: [phone] NoteUHFFLREFN_1st 6 Month Referral 6 MosMG- [facility] [address] Work Phone: [phone] NoteUHFFLVN1 of 6 Visits-Max 6 Visits/Referral Each 6 Mo PeriodMG-[facility] [address] Work Phone: [phone] NoteUHFFLOSCMC- no referral yet, will task MD once department is set up with [facility] [address] Work Phone: [phone] NoteUHFFLREFN_1st 6 Month Referral 6 Mos EK-Dqmschaixe-Hbivyjl [address] Work Phone: [phone] NoteUHFFLVN1 of 6 Visits-Max 6 Visits/Referral Each 6 Mo HxtrqvLT-Wildxbudan-Fvfdbup [address] Work Phone: [phone] NoteUHFFLOSCMC- no referral yet, will task MD once department is set up with irYK-Garcpshpwy-Dmujdrf [address] Work Phone: [phone] NoteUHFFLREFN_1st 6 Month Referral 6 MosMP- [facility] Work Phone: [phone] NoteUHFFLVN1 of 6 Visits-Max 6 Visits/Referral Each 6 Mo PeriodMP-[facility] Work Phone: [phone] NoteUHFFLOSC- no referral yet, will task MD once department is set up with [facility] Work Phone: [phone] NoteUHFFLREFN_1st 6 Month Referral 6 Mos GH-Lnywabwwqz-Pmznon [address] Work Phone: [phone] NoteUHFFLVN1 of 6 Visits-Max 6 Visits/Referral Each 6 Mo KufqmfFW-Fmvbdofhcd-Zzlubx 1162 Work Phone: [phone] NoteUHFFLOSC- no referral yet, will task MD once department is set up with anMM-Ucjigvmfwz-Tjlybc 1162 Work Phone: [phone] NoteUHFFLREFN_1st 6 Month Referral 6 Mos XI-Aowdkriuaj-Fiidexi [address] Work Phone: [phone] NoteUHFFLVN1 of 6 Visits-Max 6 Visits/Referral Each 6 Mo RxewxySL-Ynlynphtnf-Oqimycz [address] Work Phone: [phone] NoteUHFFLOSC- no referral yet, will task MD once department is set up with wgBA-Ifmdtzhyii-Zscymji [address] Work Phone: [phone] Hospital Discharge instructions ED Discharge Education Evaluation [...] Care Provider : PCP, Other (PCP) (MSI 5716) - Medical [facility] 09-27-2021 History of Present illness Narrative* [...] also took metoprolol and clonidine, extra MP-[facility] Work Phone: [phone] Hospital Discharge instructions Patient Transfer Information from 06/19/2021 4:16 PM: * LOC : Alert Physician Follow-up Plan/Appointments from 06/19/2021 4:16 PM: * Patient stated Primary Care Provider : PCP, Other (PCP) (MSI 4365) - Medical S 09-26-2021 Hospital Discharge instructions ED Discharge Education [...] Primary Care Provider : PCP, Other (PCP) ([facility] 5115) - [facility] 09-20-2021 Hospital Discharge instructions ED Discharge Education [...] Primary Care Provider : PCP, Other (PCP) ([facility] 8012) - [facility] 08-24-2021 Hospital Discharge instructions ED Discharge Education [...] Primary Care Provider : PCP, Other (PCP) ([facility] 5110) - [facility] 08-24-2021 Hospital Discharge instructions Physician Follow-up Plan/Appointments from 05/15/2021 10:37 PM: * Patient stated Primary Care Provider : PCP, Other (PCP) (MSI 5110) - [facility] 08-18-2021 Hospital Discharge instructions Patient Transfer Information from 05/10/2021 2:05 PM: * LOC : Alert Physician Follow-up Plan/Appointments from 05/10/2021 2:05 PM: * Patient stated Primary Care Provider : PCP, Other (PCP) (MSI 5110) - [facility] 08-15-2021 Hospital Discharge instructions Patient Transfer Information from 05/07/2021 4:41 AM: * LOC : Alert [facility] 08-14-2021 Hospital Discharge instructions ED Discharge [...] Primary Care Provider : Catalino Murrieta MD ([id number]) - Internal Medicine [facility] 08-10-2021 Hospital Discharge instructions Patient Transfer Information from 05/02/2021 6:44 PM: * Pain Location #1 : right flank * Pain Rating : 5 Physician Follow-up Plan/Appointments from 05/02/2021 8:08 PM: * Patient stated Primary Care Provider : Catalino Murrieta MD ([id number]) - Internal Medicine [facility] 07-29-2021 NoteHistory & Physical Reviewed: I [...] the note. I personally evaluated the patient [id number] Electronic Signatures: Tay Lott) (Signed 20-Apr-2021 17:24) Authored: Note Completion Co-Signer: History & Physical Reviewed, ERAS, Consent, Note Completion River Hernandez (Resident)) (Signed 20-Apr-2021 06:45) Authored: History & Physical Reviewed, ERAS, Consent, Note Completion Last Updated: 20-Apr-2021 17:24 by Tay Lott)[facility] 04-18-2021 NoteSend Summary: Discharge Summary Providers: Provider RoleProvider Name AttendingCarlos Carrillo Joel Note Recipients: Viral Amado DO - [phone] [Preferred] Carlos Carrillo MD Discharge: Summary: Admission [...] at Discharge: .Home Vital Signs: T PRBPSpO2 [id number]/22021% Date/Time04/17 16:137 16:137 16:137 16:147/ 16:13 Range(36.4C - 36.9C ) (58 - 73 ) (16 - 19 ) (103 - 148 )/ (64 - 96 ) (97% - 100% ) Highest temp of 36.9 C was recorded at 04/17 8:16 Date: Weight/Scale Type:Height: 17-Apr-2021 04:2085.7 kg / wdfiwarp900.1 cm Physical Exam: Please refer to detailed [...] Having his medical care between here in [place]. He said he has an appointment for [...] himself said he lives between here in [place] because of the medical care at 2 [...] ROM, Pain, Swelling, Stiffnes (more content not included)...[facility]07-26-2021 NoteHistory of Present Illness: Admission Reason: Atypical [...] Having his medical care between here in [place]. He said he has an appointment for [...] himself said he lives between here in [place] because of the medical care at 2 [...] NEGATIVE: Gynecomastia Objective: Objective Information: T PRBPSpO2 Value36.35129552/85475% Date/Time04/17 16: 16: 16: 16: 16:13 Range(36.4C [...] Head/Neck: Neck supple, n (more content not included)...[facility] 04-11-2021 Hospital Discharge instructions ED Discharge Education [...] Primary Care Provider : PCP, Other (PCP) ([facility] 9276) - Medical [facility] 07-19-2021 Hospital Discharge instructions ED Discharge [...] Primary Care Provider : PCP, Other (PCP) (VCX [id number]) - Medical [facility] 07-15-2021 History of Present illness Narrative* 50 year old male with PMH of HTN, bipolar disorder, ascending aortic aneurysm and renal artery stenosis here for initial evaluation. He has been receiving care at [facility] in [place] and recently moved back to [place]. He states Dr. Juan Franz has been monitoring his ascending aortic aneurysm as well as his left renal artery stenosis and that both have been stable as of last July. 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 He has been receiving care at [facility] in [place] and recently moved back to [place]. He states Dr. Juan Franz has been monitoring his ascending aortic aneurysm as well as his left renal artery stenosis and that both have been stable as of last July. 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 * Attachments The following attachments cannot be sent through Care Everywhere. * Chest Pain (Egyptian) documented in this [facility] Work Phone: [phone] Hospital Discharge instructions ED Discharge Education Evaluation [...] Primary Care Provider : PCP, Other (PCP) (WRD [id number]) - Medical [facility] 06-26-2021 Hospital Discharge instructions ED Discharge Education Evaluation from 03/18/2021 3:17 AM: * Educ Topic #1 : No Education materials given during your stay from 03/18/2021 3:17 AM: * Learning Barrier : None Patient Transfer Information from 03/18/2021 4:30 AM: * Pain Rating : FLACC,0 Physician Follow-up Plan/Appointments from 03/18/2021 1:50 AM: * Patient stated Primary Care Provider : Viral Amado [facility] 06-07-2021 Hospital Discharge instructions ED Discharge [...] Primary Care Provider : Hank Bunch MD ([id number]) - [facility] 06-06-2021 Hospital Discharge instructions ED Discharge Education [...] Primary Care Provider : Hank Bunch MD ([id number]) - [facility] 05-30-2021 Hospital Discharge instructions ED Discharge [...] Primary Care Provider : Hank Bunch MD ([id number]) - [facility] 05-30-2021 Hospital Discharge instructions ED Discharge [...] 02/19/2021 2:39 AM: * LOC : Alert [facility] 05-26-2021 Chief complaint Narrative - Reported* [...] an Autoimmune disease * related to Rashida calixto? * Multiple ER visits in many hospital systems in at least [place] and [place] [address] [address] Work Phone: [phone] History of Present illness Narrative* Initial visit of 50 y/o male for complaint of difficulty swallowing * 02/15/2021 seen in [place] ED with left upper quadrant discomfort after he had drank beer prior. Hedenied any associated nausea, vomiting. He went to [place] ED prior night for complaint, but stated they only checked his heart and did not obtain CT imaging. Mild LUQ tenderness on exam. Given IV fluids, GI cocktail and Pepcid. Labs including lipase and troponin unremarkable. CT of the chest abdomen pelvis shows no acute process. Stable 4.4 cm ascending aortic aneurysm. [place] better on re-exam and denied abdominal pain. He was recommended to subside on his drinking. * Seen in [place] ED 02/18/2021 due to trouble swallowing. Patient [...] and they would not do one. * had been living in [place], [place] until recently and followed with [place]. Past 2 weeks, feels solid foods press against heart. Avocado and soup okay. When ate his girlfirends pot roast it felt bad. Feels it gets stuck in chest, and then has right abdominal pain. Appetite good, but can't eat because he Feels there is a mass pushing . At [facility] was on Eliquis, and had bloating after [...] night when lying down after eating girlfriends pickles felt left upper quadrant pain. No cough. [...] feels better. Has an appointment with [facility] February 27 for mental health. States he is only eligible for Mental Health services there. States [place] being [place] and doesn't know how to get food. * PMHx: HTN, Ascending Aortic Aneurysm, ELIANA, Hyperlipidemia, ? Bipolar, PTSD, P.E. 07/2020, Covid -, * PSurgHx: Hemorrhoidectomy * FamilyHx: No GI Malignancies, No IBD * SocialHx: Not working. Food stamps from [place] just got cancelled. Living with friend. Occasionalpuff of cigarette. Has 24 ounces beer/day. No illicit drug use. [facility] [employer] Work Phone: [phone] Hospital Discharge instructions ED Discharge Education Evaluation [...] 02/15/2021 9:29 AM: * LOC : Alert [facility] 05-26-2021 Hospital Discharge instructions ED Discharge [...] stated Primary Care Provider : PCP, NONE ([id number]) [facility] 05-14-2021 NoteEmergency: Diagnostic Ultrasound Test:biliary Indication:abdominal [...] Attestation Last Updated: 03-Feb-2021 05:34 by Lily Wolf)[facility] 09-23-2020 History of Present illness Pyt[age]wd[age]qm44 year old male being seen for telephone [...] pressure is better controlled since starting Losartan.-[facility] [address] Work Phone: [phone] History of Present illness Narrative* Follow up of 50 y/o man w/ PMHx HTN, Ascending Aortic Aneurysm, ELIANA, Hyperlipidemia, ? * Bipolar, PTSD, P.E. 07/2020, Covid -19 07/2020 for complaint of difficulty swallowing with associated chest discomfort. * At initial visit 02/22/2021, on review of [facility], he had at least 30 local ED visits since January 26, 2021 with all but 5 of those being related to a chest complaint. He had been seen at [facility], [facility], and [facility]. In the [facility] system, he has been seen at their main campus, [facility], and [place]. Additionally in that timeframe he has been seen at [facility], [facility], [facility], and the [...] profane abuse of office staff. Admitted to [facility] 04/17/2021 for possible syncope. He apparently had some right-sided chest discomfort and some right arm numbness * Had Esophagram 03/30/2021 at [facility] that was unremarkable without stricture orhiatal hernia. He has also had further repeated CTA imaging with CTA Chest 03/17/2021 at [facility], CTA 04/04/2021 at [facility] and CTA Chest, A?P 04/16/2021 at [facility] without new findings. * On follow up [...] his right arm. * States spoke to [facility] about getting a endoscopy. Wants to have with minimal sedation. Pain pushes on back as well. [place] Omeprazole did not help. Feels he is having hemorrhoids and problems. Does not want to try other medications since he feels issue is due to a mass. RR-Ulihyydmgbbvcnjv-[facility]xio 6 [facility] Work Phone: [phone] History of Present illness Narrative* Follow up of 50 y/o man w/ PMHx HTN, Ascending Aortic Aneurysm, ELIANA, Hyperlipidemia, ? Bipolar, PTSD, P.E. 07/2020, Covid -19 07/2020 for complaint of difficulty swallowing with associated chest discomfort. * At initial visit 02/22/2021, on review of [facility], he had at least 30 local ED visits since January 26, 2021 with all but 5 of those being related to a chest complaint. He had been seen at [facility], [facility], [facility], and [facility]. In the [facility] system, he has been seen at their main campus, [place], [facility], and [place]. Additionally in that timeframe he has been seen at [facility], [facility], [facility], and the [facility]. He has undergone at least 3 CTAs [...] profane abuse of office staff. Admitted to [facility] 04/17/2021 for possible syncope. He apparently had some right-sided chest discomfort and some right arm numbness * Had Esophagram 03/30/2021 at [facility] that was unremarkable without stricture orhiatal hernia. He has also had further repeated CTA imaging with CTA Chest 03/17/2021 at [facility], CTA 04/04/2021 at [facility] and CTA Chest, A/P 04/16/2021 at [facility] without new findings. * On follow up [...] his right arm. * States spoke to [facility] about getting a endoscopy. Wants to have with minimal sedation. Pain pushes on back as well. [place] Omeprazole did not help. Feels he is having hemorrhoids and problems. Does not want to try other medications since he feels issue is due to a mass in his esophagus. RQ-Elulcqezknooynac-Gfxrixm 6 [facility] Work Phone: [phone] History of Present illness Narrative* Follow up of 50 y/o man w/ PMHx HTN, Ascending Aortic Aneurysm, ELIANA, Hyperlipidemia, ? Bipolar, PTSD, P.E. 07/2020, Covid -19 07/2020 for complaint of difficulty swallowing with associated chest discomfort. * At initial visit 02/22/2021, on review of [facility], he had at least 30 local ED visits since January 26, 2021 with all but 5 of those being related to a chest complaint. He had been seen at [facility], [facility], and [facility]. In the [facility] system, he has been seen at their main campus, [facility], and [place]. Additionally in that timeframe he has been seen at [facility], [facility], [facility], and the [...] profane abuse of office staff. Admitted to [facility] 04/17/2021 for possible syncope. He apparently had some right-sided chest discomfort and some right arm numbness * Had Esophagram 03/30/2021 at [facility] that was unremarkable without stricture orhiatal hernia. He has also had further repeated CTA imaging with CTA Chest 03/17/2021 at [facility], CTA 04/04/2021 at [facility] and CTA Chest, A/P 04/16/2021 at [facility] without new findings. * On follow up [...] his right arm. * States spoke to [facility] about getting a endoscopy. Wants to have with minimal sedation. Pain pushes on back as well. [place] Omeprazole did not help. Feels he is having hemorrhoids and problems. Does not want to try other medications since he feels issue is due to a mass in his esophagus. [facility] Work Phone: [phone]) [phone] History of Present illness Narrative* Follow up of 50 y/o man w/ PMHx HTN, Ascending Aortic Aneurysm, ELIANA, Hyperlipidemia, ? Bipolar, PTSD, P.E. 07/2020, Covid -19 07/2020 for complaint of difficulty swallowing with associated chest discomfort. * At initial visit 02/22/2021, on review of [facility], he had at least 30 local ED visits since January 26, 2021 with all but 5 of those being related to a chest complaint. He had been seen at [facility], [facility], [facility], and [facility]. In the [facility] system, he has been seen at their main campus, [facility], and [facility]. Additionally in that timeframe he has been seen at [facility], [facility], [facility], and the [facility]. He has undergone at least 3 CTAs [...] profane abuse of office staff. Admitted to [facility] 04/17/2021 for possible syncope. He apparently had some right-sided chest discomfort and some right arm numbness * Had Esophagram 03/30/2021 at [facility] that was unremarkable without stricture orhiatal hernia. He has also had further repeated CTA imaging with CTA Chest 03/17/2021 at [facility], CTA 04/04/2021 at [facility] and CTA Chest, A/P 04/16/2021 at [facility] without new findings. * On follow up [...] his right arm. * States spoke to [facility] about getting a endoscopy. Wants to have with minimal sedation. Pain pushes on back as well. [place] Omeprazole did not help. Feels he is having hemorrhoids and problems. Does not want to try other medications since he feels issue is due to a mass in his esophagus. [facility] Work Phone: Chidn complaint Narrative - ReportedThe patient presents to the office today for an initial evaluation.[facility] [place] [address] Work Phone: chikv complaint Narrative - ReportedThe patient presents to the office today for an initial evaluation.[facility] [address] Work Phone: clinical Notes [facility] Evaluation + Plan note [facility] Evaluation + Plan note No data available for this section [facility] Evaluation + Plan note Future Appointments Appointment Date:07/15/2024 10:30:00 AM Scheduled Provider:Tima Edwards MD Location:[facility] Appointment Type:BADH New Patient [facility] Evaluation + Plan noteExtracted from: Title:ED Note Author:Neil Alexander DO Date: Anxiety (F41.9: Anxiety diso rder, unspecified) Orders: Consult to Mental Health [facility] Evaluation note* Diagnosis Atypical chest pain- Primary Other chest pain documented in this encounter [employer] Work Phone: evaluation note* Diagnosis Chest pain, unspecified type- Primary documented in this encounter [employer] Work Phone: evaluation note* Diagnosis Dysphagia, unspecified type documented in this encounter [employer] Work Phone: evaluation note* General: Patient is [...] in attention, concentration or language.Insight: fairJudgment: fair [facility] note* Psychological: Appropriate mood and behaviorNeurological: A&O m9Urpynqsochn: no edema x4 extremities, 2+DP/PTGastrointestinal: non-distended, non-tender to palpate, +BSCardiovascular: +S1/S2, no murmur, regular rate/rhythmRespiratory/Thorax: Bilateral lung cruz clear to auscultate posteriorly, no wheezing, rhonchi, or rales.Head/Neck: no JVD with HOB upright at 90Constitutional: alert and aw evelyne, sitting up in bed, no distressSkin: warm and dry [facility]* Diagnosis Essential hypertension Unspecified essential hypertension documented in this encounter [facility]* Diagnosis Acute alcoholic intoxication without complication (HCC)- Primary Hypotension, unspecified hypotension type Dehydration Hypokalemia Hypopotassemia documented in this encounter [facility] Work Phone: evaluation note* Diagnosis Generalized abdominal pain- Primary Abdominal pain, generalized Ascending aortic aneurysm, unspecified whether ruptured (HCC) Abnormal CT scan Other nonspecific (abnormal) findings on radiological and other examinations of body structure documented in this encounter [facility] [employer] Phone: evaluation note* Diagnosis Essential hypertension- Primary Unspecified essential hypertension documented in this encounter [facility] [employer] Phone: evaluation noteNo assessment information available [facility] Work Phone: Evaluation note* Diagnosis Dizziness- Primary Dizziness and giddiness documented [facility] encounter [facility] Diagnosis Other chest pain Palpitations Decreased white blood cell count, unspecified Thrombocytopenia, unspecified (CMS/HCC) Thrombocytopenia, unspecified Disorder of kidney and ureter, unspecified Old myocardial infarction Homelessness unspecified Personal history of other diseases of the circulatory system documented in this encounter [facility] Work Phone: Evaluation note* Diagnosis Onset Date Resolution Status Constipation acute [facility] Work Phone: History of Present illness Narrative* Consult ? Fausto Calixto autoimmune issues or concerns * Refer; Self * his PCP is in [facility] * [facility] 50 [facility] * Pres[facility] calling from the waiting room! [...] currently has a primary care doctor in [facility]. He sees a multitude of physicians in [place]. He states that he travels back and forth. * He seems to have some continuity of care and [place] with providers however he states due to the fact that he has Medicaid he cannot get into see those providers. He states that he keeps his [place] insurance for the renal social worker that are available to him in [place]. 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 It seems to be stable from 2019. He does have what he describes as labile hypertension. He has been taking hismedications with the exception of the amlodipine and the triamterene hydrochlorothiazide. He follows with cardiology at [facility]. Patient had an MRI of the heart [...] In addition to seeking medical attention in [facility] and now [facility] he also states that he is try to get renal social worker in [facility]. He states that he needs 30 days off of work in order to get renal social worker in the [facility]. He has no physical capacity at this time although he has been in and out of the emergency room more than 20 times for various reasons over the last 2 months alone for various release reasons related to chest pain and nonspecific gastrointestinal issues. [facility] Work Phone: History of Present [...] the Osteopathic sports rehabilitation clinic at the [facility] * I noticed muscle imbalances on [...] was greater. * Pre-Treatment Pain Level: 12/31. -[place] [address] [facility] Work Phone: History of Present illness [...] April of 2021 * He drinks a Sadler 45 malt liquor daily * Physical exam [...] the Osteopathic sports rehabilitation clinic at the [facility] * I noticed muscle imbalances on [...] and discomfort and improving muscular endurance * [email or web address]: prescription for exercise rehabilitation provided - specifically: [...] was greater. * Pre-Treatment Pain Level: 12/31. [facility] Phone: History of Present illness Narrative* Patient [...] has established with a psychiatrist at the [place] but is not currently on any medications. [...] appointment virtually with a vascular surgeon in [place] * His blood pressure today is fairly controlled. Venkatesh ECHEVARRIA [address] Work Phone: History of Present illness NarrativePatient is currently dealing with frequent chest pains, waking up with rapid heartbeat, and anxiety. Patient moved to [place] due to better access to doctors he needs. He is concerned about his Aortic Aneurysm and Thoracic Aneurysm. Patient has autism and has a communication style that sometimes comes off as more aggressive than he realizes. This, according to him, has led to his being dismissed from several medical practices, as well as being thrown out of several Emergency Departments.[facility] [employer] [address] [place] Work Phone: History of Present illness NarrativePatient presents as in good spirits, alert and oriented x3. Patient somewhat unsure of spring encaser's role in his care, requesting services that are not aligned with purpose of case management (e.g. coming out with patient to provide outreach to local homeless encampments).[facility] [employer] [address] [place] Work Phone: History of Present illness NarrativePatient is currently dealing with frequent chest pains, waking up with rapid heartbeat, and anxiety. Patient moved to [place] due to better access to doctors he needs. He is concerned about his Aortic Aneurysm and Thoracic Aneurysm. Patient has autism and has a communication style that sometimes comes off as more aggressive than he realizes. This, according to him, has led to his being dismissed from several medical practices, as well as being thrown out of several Emergency Departments.[facility] [place] [address] [place] Work Phone: History of Present illness NarrativePatient is open to discussing his care today. Patient is alert and oriented x3.[facility] [address] [place] Work Phone: History of Present illness NarrativePatient presents as concerned and upset about his treatment options. He is alert and oriented x3. [facility] [place] [address] [place] Work Phone: History of Present illness NarrativePatient presents as frustrated and upset about his medical care. Patient is alert and oriented x3.[facility] [place] [address] [place] Work Phone: Hospital course NarrativeLHS [...] Hospital Discharge instructions* Gold Form - Other Clinicians:Wire Drawing Setter/Care Transitions Team Instructions: [facility], [facility], Provided Medicaid application incase HRS is not able to complete with him [facility] Activity on Discharge from 03/18/2021 4:28 PM: * Activity Restrictions : Resume Activity as Tolerated Chest Pain/Heart Attack Information from 03/18/2021 4:28 PM: * Has Patient had Chest Pain or an PR during this Visit? : No * It [...] Dr. Ascencio * Discharge Physician Phone: : [phone] * Patient stated Primary Care Provider : Hank Bunch MD ([id number]) - Family Practice * Follow up with [...] sent through Care Everywhere. * Chest Pain (Egyptian) [facility] Phone: Hospital Discharge instructions* Gold Form - Other Clinicians:Other Clinician Instructions: Please talk with your shoe polisher to discuss further workup [facility]* Attachments The following attachments cannot be sent through Care Everywhere. * Hypokalemia (Egyptian) * Alcohol Intoxication: Acute (Egyptian) [facility] [employer] Work Phone: Hospital Discharge instructions* Attachments The following attachments cannot be sent through Care Everywhere. * Abdominal Pain (Egyptian) * Aneurysm: Thoracic Aortic (Egyptian) [facility] [employer] Phone: spital Discharge instructions* Attachments The following attachments cannot be sent through Care Everywhere. * Hypertension: General Info (Egyptian) [facility] [employer] Phone: Hospital Discharge instructions Additional Instructions Follow-up with your primary care doctor Return to ED for develop worsening symptoms or [facility] Work Phone: Hospital Discharge instructions Additional Instructions You have a 1.7 cm lesion on the right mid kidney that we will need further evaluation please follow-up with your family doctor for further imaging.[facility] Work Phone: Hospital Discharge instructions No data available for this section [facility] Progress note No data available for this section [facility] Summary Purpose Family History No Family History [...] FoundDocuments on File Type Date Recorded Patient Dealer Development Manager Expl anation Advance Directives and Living Will Power of Engineering Surveyor Documents on File Type Date Recorded Patient Dealer Development Manager Expl anation ACP-Advance Directive ACP-Power of Engineering Surveyor Documents on File Type Date Recorded Patient Dealer Development Manager Expl anation ACP-Advance Directive ACP-Power of Engineering Surveyor Documents on File Type Date Recorded Patient Dealer Development Manager 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 * Lightheadedness or Faintness (Egyptian) documented in this encounter* Attachments The following attachments cannot be sent through Care Everywhere. * Chest Pain (Egyptian) documented in this encounter* Attachments The following attachments cannot be sent through Care Everywhere. * Cough (Egyptian) * Hypertension (Egyptian) documented in this encounter* Instructions* Howard Ayon, [...] through Care Everywhere. * Hypertension: General Info (Egyptian) * Low Sodium Diet (Egyptian) * Diet: DASH (Egyptian) documented in this encounter* Attachments The following attachments cannot be sent through Care Everywhere. * Hypertension: General Info (Egyptian) * Diet: DASH (Egyptian) documented in this encounter Chief Complaint New [...] not taking.F/u to hospital stay/complaining of chest painRAMAIKELTAYLOR ALVAREZ is being seen for chest pain [...] male patient currently inconsistently housed, staying in [facility] [place] [facility] and [place] with his lady friend. 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 Patient was referred by his primary [...] AM , for a telehealth visit. * Fireperson spoke with patient on the phone to provide CPST service of symptom monitoring related to hishealth problems. Fireperson met with patient in the community for initial assessment. This is a 51 year old White male patient currently inconsistently housed, staying in [facility] [place] [facility] and [place] withhis lady friend. 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 Patient was referred by his primary [...] PM , for a telehealth visit. * Fireperson met with patient on the phone to [...] PM , for a telehealth visit. * Fireperson met with patient on the phone to provide TBS service of identifying treatment options. * A telephone visit (audio only) between the patient (at the originating site) and the provider (at the distant site) was utilized to provide this telehealth service. * Verbal consent was requested and obtained from HOSEA ALVAREZ on this date, 11/23/2021 03:00 PM , for a telehealth visit. * Fireperson spoke with patient on the phone to provide CPST service of symptom monitoring. Reason for Referral Status Reason Specialty Diagnoses / Procedures Referre d By Contact Referred To Contact [facility] Diagnoses Dysphagia, unspecified type Procedures [place] ESOPHAGRAM Will Carter [address] [address] [place] [address] Chief Complaint and Reason for Visit Chief [...] section and content) DATE CREATED AUTHOR 03/11/2018 [facility] DATE CREATED AUTHOR AUTHOR'S ORGANIZ ATION 04/18/2018 [facility] DATE CREATED AUTHOR AUTHOR'S ORGANIZ ATION 03/21/2019 [facility] DATE CREATED AUTHOR AUTHOR'S ORGANIZ ATION 12/15/2019 [facility] DATE CREATED AUTHOR AUTHOR'S ORGANIZ ATION 02/10/2020 [facility] DATE CREATED AUTHOR AUTHOR'S ORGANIZ ATION 02/15/2021 [facility] DATE CREATED AUTHOR AUTHOR'S ORGANIZ ATION 04/02/2021 [facility] DATE CREATED AUTHOR AUTHOR'S ORGANIZ ATION 04/09/2021 [facility] DATE CREATED AUTHOR AUTHOR'S ORGANIZ ATION 06/04/2021 [facility] DATE CREATED AUTHOR AUTHOR'S ORGANIZ ATION 06/14/2021 [facility] DATE CREATED AUTHOR AUTHOR'S ORGANIZ ATION 06/16/2021 [facility] DATE CREATED AUTHOR AUTHOR'S ORGANIZ ATION 08/21/2021 [facility] DATE CREATED AUTHOR AUTHOR'S ORGANIZ ATION 08/24/2021 [facility] DATE CREATED AUTHOR AUTHOR'S ORGANIZ ATION 09/26/2021 [facility] DATE CREATED AUTHOR AUTHOR'S ORGANIZ ATION 11/06/2021 [facility] DATE CREATED AUTHOR AUTHOR'S ORGANIZ ATION 12/01/2021 [employer] DATE CREATED AUTHOR AUTHOR'S ORGANIZ ATION 02/17/2022 [facility] DATE CREATED AUTHOR AUTHOR'S ORGANIZ ATION 02/28/2022 [facility] DATE CREATED AUTHOR AUTHOR'S ORGANIZ ATION 04/10/2022 [facility] DATE CREATED AUTHOR AUTHOR'S ORGANIZ ATION 01/15/2023 [facility] DATE CREATED AUTHOR AUTHOR'S ORGANIZ ATION 01/25/2023 [facility] DATE CREATED AUTHOR AUTHOR'S ORGANIZ ATION 01/31/2023 [facility] DATE CREATED AUTHOR AUTHOR'S ORGANIZ ATION 02/03/2023 [facility] DATE CREATED AUTHOR AUTHOR'S ORGANIZ ATION 02/05/2023 [facility] DATE CREATED AUTHOR AUTHOR'S ORGANIZ ATION 04/23/2023 [facility] DATE CREATED AUTHOR AUTHOR'S ORGANIZ ATION 05/15/2023 [facility] DATE CREATED AUTHOR AUTHOR'S ORGANIZ ATION 05/19/2023 [facility] DATE CREATED AUTHOR AUTHOR'S ORGANIZ ATION 05/29/2023 [facility] DATE CREATED AUTHOR AUTHOR'S ORGANIZ ATION 05/29/2023 [facility] DATE CREATED AUTHOR AUTHOR'S ORGANIZ ATION 06/01/2023 [facility] DATE CREATED AUTHOR AUTHOR'S ORGANIZ ATION 06/06/2023 [facility] DATE CREATED AUTHOR AUTHOR'S ORGANIZ ATION 06/09/2023 [facility] DATE CREATED AUTHOR AUTHOR'S ORGANIZ ATION 06/15/2023 [facility] DATE CREATED AUTHOR AUTHOR'S ORGANIZ ATION 07/07/2023 [facility] DATE CREATED AUTHOR AUTHOR'S ORGANIZ ATION 07/13/2024 [facility] DATE CREATED AUTHOR AUTHOR'S ORGANIZ ATION 2024 [facility] DATE CREATED AUTHOR AUTHOR'S ORGANIZ ATION 07/27/2024 [facility] DATE CREATED AUTHOR AUTHOR'S ORGANIZ ATION 07/30/2024 [facility] DATE CREATED AUTHOR AUTHOR'S ORGANIZ ATION 07/31/2024 [facility] DATE CREATED AUTHOR AUTHOR'S ORGANIZ ATION 08/03/2024 [facility] DATE CREATED AUTHOR AUTHOR'S ORGANIZ ATION 08/09/2024 [facility] Reason for Visit (unrecogniz ed section and content) Reason Comments Dizziness Chest Pain left chest pain 11/02 - states it comes and goes today- was in [place] ED last week for hypertension- also states was around active Covid 19 patients Reason Comments Chest Pain Pt states that he wa s seen on 01/14 at [facility] for chest and back pressure and was [...] unspecified Procedures FL BARIUM SWALLOW Will Carter [address], [address] [place] [address] [facility] [address] [place] [address] Reason Comments Dehydration Was hitch hiking [place]. Feels he is dehydrated. Took extra BP med by mistake Reason Comments Abdominal Pain With emesis, left [facility] ED and went to [facility] and called EMS Reason Comments Abdominal Pain [...] Michaelle 03/30/21 at 1253, For 1 dose 1423 (Not Given - Pr ovider: Jlilian Thurman RN - Reason: Patient/family refused) Scheduled [...] tolerated. 0808 (New Bag - Prov ider: Radha Pagan RN)0958 (Stopped - Provider: Max Rhodes RN) dicyclomine (BENTYL) injection 20 mg 20 mg, IntraMUSCular, ONCE, 1 dose, On Sat02/01/23 at 0800 0810 (Not Given - Pr ovider: Radha Pagan RN - Reason: Patient/family refused) ondansetron (ZOFRAN) injection 4 mg 4 mg, IntraVENous, ONCE, 1 dose, On 02/01/23 at 0800 0810 (Not Given - Pr ovider: Radha Pagan RN - Reason: Patient/family refused) sodium chloride flush 0.9 % injection 10 mL (COMPLETED) 10 mL, IntraVENous, ONCE, 1 dose, On 02/01/23 at 1045 1043 (Given - Provid er: [facility]) PRN Medication Order 01/30/2023 01/31/2023 02/01/2023 iopamidol [...] ONCE, 1 dose, On 02/02/23 at 2030 2020 (Given - Provid er: Gabrielle Potter RN) Scheduled Medication Order 05/28/2023 05/29/2023 05/30/2023 sodium [...] or prosecute any alcohol or drug abuse patient.[facility] Care Teams (unrecognized sec tion and content) Sorority Supervisor Relationship Specialty Start Date End Date Viral Amado DO [address] [place] [address] PCP - General Internal Medicine 05/24/21 [place] [address] [place] [address] Referring Cardiology 10/19/21 Team Status: Active Member Role Status Dates NON STAFF Primary Care Provider Active Team Status: Inactive Member Role Status Dates NON STAFF Primary Care Provider Active Severino Singh DO Emergency Provider Active Team Status: Inactive Member Role Status Dates NON STAFF Primary Care Provider Active Bozena Shaw APRN Emergency Provider Active Sorority Supervisor Relationship Specialty Start Date End Date Kristen Bowman MD [address] [place] [facility] [address] [place] [address] PCP - General Urology 03/08/22 Viral Amado DO [address] [place] [facility] [address] [place] [address] 03/08/22 Team Status: Inactive Member Role Status Dates Gustavo Mcclelland DO Emergency Provider Active St art: July 14, [...] BE BASED ON THE PRIMARY CLINICAL RECORDS. [facility]. provides no warranty or guarantee of the accuracy or completeness of information in this document.
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
[2024-08-09 20:18] LABS: Basophils Percent Auto 0.3 % (0.2-2.0); Eosinophils Absolute Auto 0.1 10^3/uL (0.0-0.7); Eosinophils Percent Auto 2.4 % (0.9-7.0); Hematocrit 41.3 % (42.0-54.0); Hemoglobin 13.9 g/dL (14.0-18.0); Immature Granulocytes Abs Auto 0.02 10^3/uL (0.00-0.03); Immature Granulocytes Pct Auto 0.5 % (0.0-0.5); Lymphocytes Absolute Auto 1.2 10^3/uL (1.2-3.8); Lymphocytes Percent Auto 32.5 % (20.5-60.0); Mean Corpuscular HGB Conc 33.7 g/dL (29.9-35.2); Mean Corpuscular Hemoglobin 29.6 pg (25.9-34.0); Mean Corpuscular Volume 87.9 fL (80.0-94.0); Monocytes Absolute Auto 0.4 10^3/uL (0.3-0.8); Monocytes Percent Auto 9.7 % (1.7-12.0); Neutrophils Percent Auto 54.6 % (43.0-75.0); Platelet Count 174 10^3/uL (150-450); Red Cell Distribution Width 12.9 % (11.0-15.0); White Blood Count 3.7 10^3/uL (4.0-11.0)
[2024-08-09 20:35] LABS: Alanine Aminotransferase 40 U/L (16-63); Albumin Globulin Ratio 0.9; Albumin Level 3.7 g/dL (3.4-5.0); Alkaline Phosphatase 77 U/L (46-116); Anion Gap 15.7; Aspartate Amino Transferase 19 U/L (15-37); BUN Creatinine Ratio 13.5; Bilirubin Total 0.3 mg/dL (0.2-1.0); Calcium 8.8 mg/dL (8.5-10.1); Carbon Dioxide 25.1 mmol/L (21.0-32.0); Chloride 104 mmol/L (98-107); Estimated GFR (African America >60 (>=60 mL/min/1.73m^2); Estimated GFR (Non-African Ame 53 (>=60 mL/min/1.73m^2); Ethanol 182 mg/dL; Glucose 98 mg/dL (74-106); Magnesium 2.3 mg/dL (1.8-2.4); Potassium 3.8 mmol/L (3.5-5.1); Sodium 141 mmol/L (136-145); Total Protein 7.7 g/dL (6.4-8.2)
[2024-08-09 20:37] LABS: Troponin I High Sensitivity 4.7 pg/mL (4.0-76.1)
[2024-08-09 21:01] VITALS: BP 142/96; O2SAT 99
[2024-08-09 21:02] VITALS: BP 133/93; O2SAT 100
[2024-08-09 21:10] VITALS: O2SAT 98
[2024-08-09 21:20] VITALS: O2SAT 98
[2024-08-09 21:25] LABS: Cannabinoid Screen Urine NEGATIVE (NEGATIVE); Phencyclidine Screen Urine NEGATIVE (NEGATIVE)
[2024-08-09 21:26] LABS: Amphetamine Screen Urine NEGATIVE (NEGATIVE); Barbiturates Screen Urine NEGATIVE (NEGATIVE); Benzodiazepines Screen Urine NEGATIVE (NEGATIVE); Buprenorphine Screen Urine NEGATIVE (NEGATIVE); Cocaine Screen Urine NEGATIVE (NEGATIVE); Methadone Screen Urine NEGATIVE (NEGATIVE); Methamphetamines Screen Urine NEGATIVE (NEGATIVE); Opiate Screen Urine NEGATIVE (NEGATIVE); Oxycodone Screen Urine NEGATIVE (NEGATIVE); Tricyclic Antidepressant Urine NEGATIVE (NEGATIVE)
[2024-08-09 21:30] VITALS: BP 121/80; O2SAT 100
== END 2024-08-09 22:30 | disposition home or self-care (01) ==
PROVIDERS: Emergency Provider Internal Medicine
DX: F10.129 Alcohol abuse with intoxication, unspecified (principal); G47.00 Insomnia, unspecified; Y90.6 Blood alcohol level of 120-199 mg/100 ml; Z87.891 Personal history of nicotine dependence
CPT/HCPCS: 36415; 80053; 80307; 80320; 83690; 83735; 84484; 85025; 99284

== ENCOUNTER 2024-08-10 02:51 | Emergency (ER) | payer MEDICAID, SELFPAY ==
[2024-08-10 03:01] VITALS: BP 150/80; PULSE 89; TEMP 36.8; O2SAT 98; BMI 33.9
--- OUTSIDE RECORDS SUMMARY | 2024-08-10 03:07 | XMS_ITS | CCD ---
Author Organization [facility] Care Team Providers Care Investigation Manager Name Role Phone Gracia Claire Unavailable Unavailable PROVIDER, UNKNOWN Unavailable Unavailable No, PCP Unavailable Unavailable No Family, Physician Primary Care Unavailable BRANDEN MORAES Attending Unavailable No Family, Physician Primary Care Unavailable HOWARD AYON Attending Unavailable Unavailable Primary Care Provider Unavailabl e Required, No Pcp Unavailable Unavailable Shawn Flores Unavailable Stacia Bloom Unavailable Lily Wolf Unavailable Unavailable Dejha Lepe Unavailable Unavailable Keith Arechiga Unavailable Unavailable [...] Charly Oseguera Unavailable Unavailable Nessa Messina Unavailable [phone] Malou Lomax Unavailable Amanda Choudhary Unavailable Unavailable Cierra Gimenez Unavailable [phone] Grupo Sousa Unavailable Unavailable Meagan Baugh Unavailable [...] Provider Performer Unavailable Unavailable Triston Orozco Unavailable [phone] Lily Carvajal Unavailable [phone] Nessa Kelly Unavailable [phone] Cheo Simeon Unavailable Unavailable Unavailable Unavailable Unavailable Viral Amado DO Primary Care Provider Giuseppe Wells MD, Thalia Gresham Unavailable NADIRA HAZEL MD Attending Unavailable VIRAL AMADO Primary Care Unavailable PCP, Other Primary Care Physician VIRAL AMADO Primary Care Unavailable Free, Text Entry Unavailable Unavailable Daniel Brizuela Unavailable Unavail able Pending, Provider Primary Care Unavailable Triston Orozco Attending Unavailab le Unavailable Primary Care Provider Unavailabl SUSU Collier Attending Unavailable LILA VERA Attending Unavailabl LEONIDES Wiggins Attending Unavailable KENN RODRIGUEZ Attending Unavailable LILY MERCADO Attending Unavailable MATTY CLEMENTS Attending Unavailable TO, ROBINA Kilne Attending Unavailable TO, ROBINA Kline Attending Unavailable NON STAFF Primary Care Provider Unavailsandy e DO Severino Singh M Emergency Provider VIOLET Shaw Emergency Provider [phone] KAY VAZQUEZ Attending Unavailable PCP, OTHER Primary Care Unavailable ANNE INMAN Attending Unavailable PCP, OTHER Primary Care Unavailable ANEUDY, VIRAL S Primary Care Unavailable LIAM PHAM Attending Unavailable ANEUDY, VIRAL S Primary Care Unavailable ANEUDY, VIRAL S Primary Care Unavailable Unavailable Primary Care Provider UnavailCARLOS Shine Attending Unavailable ANEUDY, VIRAL S Primary Care Unavailable Reyes, Jal Unavailable Unavailable PROVIDER, UNKNOWN Admitting Unavailable RILEY CRAWFORD Attending Unavailable TYREE MACKENZIE Unavailable [phone] AndNeil aquino Unavailable Pending, Provider Primary Care [...] Emergency Provider MD Jaylin Rossi Emergency Provider [phone] AGUSTINA SEGAL Attending Unavailable BRENNA HOROWITZ Attending Unavailable NO PCP, NO PCP Primary Care Unavailable HECTOR NGUYEN Attending Unavailable Brody Montze Admitting Unavailable Brody Montez Attending Unavailable NON STAFF Primary Care Unavailable Gustavo Mcclelland Attending Unavailable NON STAFF Primary Care Unavailable Gustavo Mcclelland Admitting Unavailable NON STAFF Primary Care Unavailable Jaylin Rossi Admitting Unavailable Jaylin Rossi Attending Unavailable Gustavo Mcclelland Admitting Unavailable Gustavo Mcclelland Attending Unavailable NON STAFF Primary Care Unavailable Tima Edwards Attending Unavaila jennifer Harick, Astrit H Attending [...] sources) Aspirin; Translations: [Aspirin TABS] Drug Allergy [facility] Corporate Work Phone: chocolate allergenic extract (3 sources) chocolate allergenic extract Drug Allergy 018 Nausea And Vomiting [facility] Macrolides (antibiotic) (20 sources) Erythromycin; Translations: [Erythromycin TABS] Drug Allergy 014 Nausea And Vomiting, Itching [facility] POLYETHYLENE GLYCOL 3350 (10 sources) POLYETHYLENE GLYCOL 3350; Translations: [polyethylene glycol 3350] Drug Allergy Gatrointestinal upset [facility] [address] Work Phone: Polyethylene Glycols (6 sources) Polyethylene Glycols; Translations: [polyethylene glycol] Drug Allergy Abdominal Pain [facility] Quinolones (antibiotic) (17 sources) Ciprofloxacin Drug Allergy Unknown [facility] Sulfonamides (antibiotic) (3 sources) Sulfonamides (Antibiotic) Drug Allergy 014 Nausea And Vomiting [facility] Unclassified (7 sources) polyethylglycol causes Severe Abdominal Pain. Status:Active.; Translations: [polyethylglycol] Drug allergy (disorder) Abdominal Pain [facility] Unclassified (20 sources) caffine Other [facility] Comment on above: caffine (16 sources) chocolate allergenic extract; Translations: [CHOCOLATE] Drug Allergy 018 Nausea And Vomiting, GI Upset, Vomiting [place], [place] (20 sources) Erythromycin; Translations: [erythromycin base] Drug Allergy 014 Nausea And Vomiting, Itching [place], [place] (7 sources) Sulfonamides (Antibiotic); Translations: [SULFA ANTIBIOTICS] Propensity to adverse reactions to drug Nausea And Vomiting [place], [place] (11 sources) Aspirin; Translations: [Aspirin TABS] Drug Allergy [facility] [address] Work Phone: (20 sources) Erythromycin; Translations: [Erythromycin TABS] Drug Allergy Gatrointestinal upset [facility] [address] Work Phone: (20 sources) POLYETHYLENE GLYCOL 3350; Translations: [polyethylene glycol 3350] Drug Allergy 022 Gatrointestinal upset, Nausea [facility] (18 sources) Polyethylene Glycols; Translations: [polyethylene glycol] Drug Allergy Abdominal Pain [facility] (20 sources) Ciprofloxacin Drug Allergy Unknown [facility] (1 source) POLYETHYLENE GLYCOL 3350 / Potassium Chloride / Sodium Bicarbonate / Sodium Chloride / sodium sulfate Drug Allergy [facility] Repository (2 sources) Polyethylene Glycols; Translations: [POLYETHYLENE GLYCOL] Drug Allergy 021 [facility] Repository (20 sources) Caffeine; Translations: [Caffeine] Drug Allergy 020 Rash [facility] (8 sources) amLODIPine; Translations: [AMLODIPINE] Drug Allergy 021 Swelling [facility] Work Phone: (10 sources) Amoxicillin; Translations: [AMOXICILLIN] Drug Allergy 012 GI Upset [facility] (7 sources) Chocolate; Translations: [CHOCOLATE FLAVOR] Drug Allergy 020 GI Upset [facility] (9 sources) chocolate allergenic extract; Translations: [COCOA] Drug Allergy 018 GI Upset, Rash, Vomiting [facility] (8 sources) Ciprofloxacin; Translations: [CIPROFLOXACIN] Drug Allergy Other: See Comments [facility] (9 sources) diazePAM; Translations: [DIAZEPAM] Drug Allergy Unknown [facility] (10 sources) fentaNYL; Translations: [FENTANYL] Drug Allergy Mental Status Change [facility] (9 sources) Lisinopril; Translations: [LISINOPRIL] Drug Allergy Cough [facility] (18 sources) LORazepam; Translations: [LORAZEPAM] Drug Allergy GI Upset, Illness (finding) [facility] (7 sources) Seasonal allergy; Translations: [SEASONAL ALLERGIES] Allergy to substance GI Upset [facility] (7 sources) Serotonin; Translations: [SEROTONIN HCL] Drug Allergy Mental Status Change [facility] (9 sources) sulfaSALAzine; Translations: [SULFASALAZINE] Drug Allergy GI Upset [facility] (12 sources) Sulfonamides (Antibiotic); Translations: [SULFA (SULFONAMIDE ANTIBIOTICS)] Drug Allergy GI Upset, Nausea And Vomiting [facility] (3 sources) Azithromycin; Translations: [AZITHROMYCIN] Drug [...] Translations: [Ativan] Drug Allergy Unknown [facility] (1 source) Morphine; Translations: [MORPHINE] Drug Allergy [facility] Rep[facility] (1 source) LORazepam Drug Allergy [facility] Repository (1 source) Polyethylene Glycols Drug Allergy [facility] Repository NEGATED: Highlighted row has been ruled out!Latex (15 sources) natural latex rubber; Translations: [LATEX, NATURAL RUBBER] Substance Allergy [facility] NEGATED: Highlighted row has been ruled out!Unclassified [...] Translations: [LATEX, NATURAL RUBBER] Drug allergy (disorder) [facility] Medications Current Medications Medication Drug Class(es) Dates [...] Substitution Allowed take 1 capsule by [facility] twice daily as needed Docusate Sodium 100 [...] Start: 08-28-2021 take 2 tablets by [facility] once daily Losartan Potassium 25 MG Oral [...] box directions or as directed by physician, [facility], 167, cm, 07/20/24 11:11:00 EDT, Height/Length [...] q5min/htn, # 15 tab(s), Refills(s) 0, Pharmacy: [facility], 167.6, cm, 08/07/24 11:50:00 EST, Height/Length [...] Start: 02-22-2021 take 1 capsule by [facility] once daily Omeprazole 40 MG Oral Capsule Delayed Release Take one capsule once a day Quantity: 30 Refills: 11 Ordered: 22-Feb-2021 Meagan Vizcarra Start : 22-Feb-2021 Active take [facility] daily omeprazole magnesium 20 mg tablet,delayed release (DR/EC), Ordered By: Jean-Paul Ascencio MD Directions: 1 tablet oral daily psyllium 3400 mg powder for oral suspension (9 sources) Start: 2024 Metamucil 3.4 g/5.2 g oral powder 3.4 gram, Oral, TID, PRN for constipation, # 283 gram, Refills(s) 3, Pharmacy: [facility], 167, cm, 07/20/24 11:11:00 EDT, Height/Length [...] (20 sources) take 1 capsule by [facility] once daily zinc (as acetate) 50 mg [...] oral four times daily polyethylene glycol 3350 46385 mg powder for oral solution (12 sources) [...] directed by your doctor. polyethylene glycol 3350 240552 mg / potassium chloride 1480 mg / sodium bicarbonate 5720 mg / sodium chloride 40012 mg powder for oral solution (3 sources) [...] daily 120 July 15, 2024 12:00am sennosides, mcfp 8.6 mg oral tablet (16 sources) Start: [...] CHEST PAIN. 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 03/14 -- 24H HLT (LOST) 02-16-2021 Comment on above: F/U [facility] STAY -- EX STRESS [facility] 03/14 -- 24H HLT (LOST) Unclassified (5 [...] Sauer RESULTS Unclassified (6 sources) CONSULT AT [facility] 08-08-2021 Comment on above: CONSULT AT [facility] Unclassified (2 sources) CP/NECK PAIN 08-19-2021 [...] 2023 ED Clinical Summary ED Clinical Summary [place] [address] ED Clinical Summary Person Information Name: HOSEA ALVAREZ/[facility] Age: 54 Years : 1970 Sex: Male Language: Scottish PCP: Yang VALENCIA MD Marital Status: Single [...] 11:58:41 08/07/2024 11:58:41 ADDRESS: [address] [facility] [id number] PHYS DOC NOTES: MEDICAL INFORMATION: Prescriptions Given: Medications to Continue with No Changes [facility], [address] [place], [place] [id number], [phone] nitroglycerin (nitroglycerin 0.4 mg sublingual Tab) 1 [...] Follow up: With: Address: When: Yang VALENCIA [address] [place], [place] [id number] Rocket Raise (Fantom In 3 days 08/10/2024 DIAGNOSIS: Medicine refill Normal [facility] ED Note-Physicianon 08-07-20 ED Note-Physician ED Note-Physician [...] q5min/htn, # 15 tab(s), Refills(s) 0, Pharmacy: [facility], 167.6, cm, 08/07/24 11:50:00 EST, Height/Length [...] Information Yang VALENCIA In 3 days 08/10/2024 [place] [id number] [facility] (1) Additional Instructions: Patient Education Hypertension, Adult [...] made to ensure accuracy, however, inadvertently computerized beater out mistakes may be present. Appropriate healthcare PPE [...] available. Di (more content not included)... Normal [facility] Comment on above: Result Comment: Elec tronically Signed By: Piyush Mccallum PA-C\.br\Date and Time Signed: 08/07/24 11:58 EST\.br\Electronically Co-Signed By: Howard Martin DO\.br\Date and Time Co-Signed: 08/07/24 13:29 EST ED Patient Summaryon 024 ED Patient Summary ED Patient Summary [place] [id number] Patient Discharge Instructions Person Information Name: HOSEA ALVAREZ Age: 54 Years Arrival Date: 08/07/2024 11:44:31 Discharge Diagnosis: Medicine refill Primary Care Physician: Yang VALENCIA MD Provider Information Primary Provider: Howard Martin DO [employer] Second:Piyush Mccallum PA-C The exam and treatment you received in the Emergency Department were for an urgent problem and are not intended as complete care. It is important that you follow up with a doctor, nurse practitioner, or physician???s professional nursing assistant for ongoing care. If your symptoms [...] Follow-up Instructions: With: Address: When: Yang VALENCIA [address] [place], [place] [address] Business (1) In 3 days 08/10/2024 In the event that this physician does not participate in your insurance network, please consult with your insurance company to find a nearby participating provider. Patient Education Materials: Hypertension, Adult A MESSAGE TO ALL PATIENTS REGARDING OPIOIDS PRESCRIPTION OPIOIDS: WHAT YOU NEED TO KNOW Prescription opioids can be used to help relieve bcnyhnqe-hi-svukzw pain and are often prescribed following a [...] be struggling with addiction, tell your health career development consultant and ask (more content not included)... [facility] Interdisciplinary Note - Soc ial Workeron 08-07-2024 Interdisciplinary Note - Business Machine Mechanic Interdisciplinary Note - Business Machine Mechanic This SW was requested by patient when [...] He was instructed to contact Dr. Srinivasan's [place] office regarding this. SW did speak with CV at [facility] and they were sending a message to nursing at Dr. Srinivasan's [place] office about it; their systems are not connected so they cannot view visit notes, orders, etc. Urology appointment is scheduled for Saturday09/09/24 at 1015 at the [place] Office: [address] [place] [phone] [facility] Interdisciplinary Note - Soc devantel Evonne 08-06-2024 Interdisciplinary Note - Business Machine Mechanic Interdisciplinary Note - Business Machine Mechanic This SW was requested by patient who came to [facility] as a walk-in. Per patient, he needs assistance scheduling appointments, and finding out when his scheduled appointments are due to the fact he does not have a phone at this time. Patient is frequently seen in the ED at [facility] and at other hospitals for ongoing complaints [...] SW email him with the information at [email or web address]. Patient did also ask if assistance could [...] by the hospital. SW recommended going to [employer] and the [employer]. Patient is homeless at this time and has been moving from place to place. He does now have [employer] Medicaid so transportation to/from medical appointments is available to him, but otherwise he has very limited resources. He states he has been working with Dania at [employer] and was made aware there might be a bed available at [facility] in [place]. SW spoke to him about the Homeless Vets Coordinator, Gracia Lucas. He states he has worked with Gracia in the past but SW is welcome to call her and he would be happy if this was done. Patient was in the [place]. Normal [facility] CBC w/ Auto Diffon 4 Basophils/100 WBC (Bld) 0.6 % Normal 0.0-2.[address] [facility] Comment on above: Performed By: #### 2 [id number] #### [facility] [address] [place] [address] Basophils/Leukocytes Auto (Bld) [Pure # fraction] 0.0 E9/L Normal 0.0-0.[address] [facility] Comment on above: Performed By: #### 2 [id number] #### [facility] [address] [place] [address] Eosinophils (Bld) [#/Vol] 0.1 E9/L Normal 0.0-0.[address] [facility] Comment on above: Performed By: #### 2 [id number] #### [facility] [address] [place] [address] Eosinophils/100 WBC (Bld) 2.6 % Normal 0.0-8.[address] [facility] Comment on above: Performed By: #### 2 [id number] #### [facility] [address] [place] [address] Erythrocyte distribution width (RBC) [Ratio] 13.6 % Normal 10.9-14.[address] [facility] Comment on above: Performed By: #### 2 [id number] #### [facility] [address] [place] [address] Hematocrit (Bld) [Volume fraction] 38.0 % Normal 37.7-49.[address] [facility] Comment on above: Performed By: #### 2 [id number] #### [facility] [address] [place] [address] Hemoglobin (Bld) [Mass/Vol] 13.2 g/dL Low 13.5-17.[address] [facility] Comment on above: Performed By: #### 2 [id number] #### [facility] [address] [place] [address] Lymphocytes (Bld) [#/Vol] 1.2 E9/L Normal 1.0-4.[address] [facility] Comment on above: Performed By: #### 2 [id number] #### [facility] [address] [place] [address] Lymphocytes/100 WBC (Bld) 29.3 % Normal 14.0-50.[address] [facility] Comment on above: Performed By: #### 2 [id number] #### [facility] [address] [place] [address] MCH (RBC) [Entitic mass] 30.1 pg Normal 27.0-34.[address] [facility] Comment on above: Performed By: #### 2 [id number] #### [facility] [address] [place] [address] MCHC (RBC) [Mass/Vol] 34.7 g/dL Normal 31.4-36.0 [facility] Comment on above: Performed By: #### 2 [id number] #### [facility] [address] [place] [address] MCV (RBC) [Entitic vol] 86.9 fL Normal 80.0-100.[address] [facility] Comment on above: Performed By: #### 2 [id number] #### [facility] [address] [place] [address] Monocytes (Bld) [#/Vol] 0.3 E9/L Normal 0.2-1.[address] [facility] Comment on above: Performed By: #### 2 [id number] #### [facility] [address] [place] [address] Neutrophils (Bld) [#/Vol] 2.5 E9/L Normal 2.0-7.[address] [facility] Comment on above: Performed By: #### 2 [id number] #### [facility] [address] [place] [address] Neutrophils/100 WBC (Bld) 59.4 % Normal 36.0-75.[address] [facility] Comment on above: Performed By: #### 2 [id number] #### [facility] [address] [place] [address] Platelet mean volume (Bld) [Entitic vol] 8.7 fL Normal 6.4-10.[address] [facility] Comment on above: Performed By: #### 2 [id number] #### [facility] [address] [place] [address] Platelets (Bld) [#/Vol] 153.0 E9/L Normal 150.0-500.[address] [facility] Comment on above: Performed By: #### 2 [id number] #### [facility] [address] [place] [address] RBC (Bld) [#/Vol] 4.4 E12/L Normal 4.3-5.[address] [facility] Comment on above: Performed By: #### 2 [id number] #### [facility] [address] [place] [address] WBC corrected for nucl RBC Auto (Bld) [#/Vol] 4.3 E9/L Normal 4.0-11.[address] [facility] Comment on above: Performed By: #### 2 [id number] #### [facility] [address] [place] [address] CHEMISTRYOrdered By: SYSTEM SYSTEM on 08-02-2024 Amphetamines [...] 08-02-2024 Albumin [Mass/Vol] 4.1 g/dL Normal 3.3-5.[address] [facility] Comment on above: Performed By: #### 2 [id number] #### [facility] [address] [place] [address] Albumin/Globulin (S) [Mass conc ratio] 1.5 Normal 1.1-2.[address] [facility] Comment on above: Performed By: #### 2 [id number] #### [facility] [address] [place] [address] ALP [Catalytic activity/Vol] 59 Int._Unit/L Normal 21-[address] [facility] Comment on above: Performed By: #### 2 [id number] #### [facility] [address] [place] [address] ALT No additional P-5'-P [Catalytic activity/Vol] 25 Int._Unit/L Normal 6-[address] [facility] Comment on above: Performed By: #### 2 [id number] #### [facility] [address] [place] [address] Anion gap [Moles/Vol] 15 mmol/L Normal 6-16 [facility] Comment on above: Performed By: #### 2 [id number] #### [facility] [address] [place] [address] AST [Catalytic activity/Vol] 19 Int._Unit/L Normal 5-[address] [facility] Comment on above: Performed By: #### 2 [id number] #### [facility] [address] [place] [address] Bilirubin [Mass/Vol] 0.4 mg/dL Normal 0.0-1.1 [facility] Comment on above: Performed By: #### 2 [id number] #### [facility] [address] [place] [address] Calcium [Mass/Vol] 8.7 mg/dL Low 8.9-11.[address] [facility] Comment on above: Performed By: #### 2 [id number] #### [facility] [address] [place] [address] Chloride [Moles/Vol] 106 mmol/L Normal 101-111 [facility] Comment on above: Performed By: #### 2 [id number] #### [facility] [address] [place] [address] CO2 [Moles/Vol] 23 mmol/L Normal 21-31 [facility] Comment on above: Performed By: #### 2 [id number] #### [facility] [address] [place] [address] Creatinine [Mass/Vol] 1.2 mg/dL Normal 0.5-1.3 [facility] Comment on above: Performed By: #### 2 [id number] #### [facility] [address] [place] [address] Globulin (S) [Mass/Vol] 2.7 g/dL Normal 1.4-4.[address] [facility] Comment on above: Performed By: #### 2 [id number] #### [facility] [address] [place] [address] Glucose [Mass/Vol] 102 mg/dL Normal 55-[address] [facility] Comment on above: Performed By: #### 2 [id number] #### [facility] [address] [place] [address] Potassium [Moles/Vol] 3.8 mmol/L Normal 3.5-5.3 [facility] Comment on above: Performed By: #### 2 [id number] #### [facility] [address] [place] [address] Protein [Mass/Vol] 6.8 g/dL Normal 6.0-7.[address] [facility] Comment on above: Performed By: #### 2 [id number] #### [facility] [address] [place] [address] Sodium [Moles/Vol] 140 mmol/L Normal 135-[address] [facility] Comment on above: Performed By: #### 2 [id number] #### [facility] [address] [place] [address] Urea nitrogen [Mass/Vol] 17 mg/dL Normal 5-[address] [facility] Comment on above: Performed By: #### 2 [id number] #### [facility] [address] [place] [address] Urea nitrogen/Creatinine [Mass ratio] 14 No Units Normal 07-[address] [facility] Comment on above: Performed By: #### 2 [id number] #### [facility] [address] [place] [address] ED Clinical Summaryon 2023 ED Clinical Summary ED Clinical Summary [address] [address] ED Clinical Summary Person Information Name: HOSEA ALVAREZ/[facility] Age: 54 Years : 1970 Sex: Male Language: Scottish PCP: Yang VALENCIA MD Marital Status: Single [...] 23:47:33 08/02/2024 23:47:33 ADDRESS: [address] [facility] [id number] [facility] DOC NOTES: MEDICAL INFORMATION: Prescriptions Given: Medications to Continue with No Changes Other Medications lisinopril (lisinopril 20 mg Tab) 1 Tablets By Mouth every day. metoprolol (metoprolol 25 mg ER Tab) 1 Tablets By Mouth every day. metoprolol (Toprol XL 25 mg Tab-ER) 1 Tablets By Mouth every day. Refills: 0. PATIENT EDUCATION INFORMATION: Instructions: Panic Attack, Wccy-me-Rnyj Follow up: With: Address: When: [facility] In 3 days 08/05/2024 Comments: Follow-up with your primary care doctor and mental health for further evaluation management. With: Address: When: Yang VALENCIA [address] [place] [phone] Business (1) In 3 days 08/05/2024 DIAGNOSIS: Anxiety Normal [facility] ED Note-Nursingon 08-02-2024 ED Note-Nursing ED Note-Nursing Pt speaking with Daniela from [facility] on the phone. Normal [facility] ED Note-Physicianon 08-02-20 ED Note-Physician ED Note-Physician [...] mental health breakdown states he was at [place] does not feel like he was treated [...] he would like to speak with the [place] mental health. Review of Systems A 10 [...] and Complexity of Problems Differential Diagnosis: [] [facility] Data External documents reviewed: [] My [...] states he wants to speak with the [place] mental health. I did explain to the [...] prescription medications Follow-up With When Contact Information [facility] In 3 days 08/05/2024 EST Additional Instructions: Follow-up with your primary care doctor and mental health for further evaluation management. Yang VALENCIA In 3 days 08/05/2024 EST [address] [phone] Business (1) Additional Instructions: Patient Education Panic Attack, Smgk-lc-Ijou Problem List/Past Medical History Ongoing Abdominal pain [...] Bowel Pre (more content not included)... Normal [facility] Comment on above: Result Comment: Elec tronically Signed By: Pasquale Nuñez DO\.br\Date and Time Signed: 08/02/24 23:55 EST ED Patient Summaryon 024 ED Patient Summary ED Patient Summary [place] [id number] Patient Discharge Instructions Person Information Name: HOSEA ALVAREZ Age: 54 Years Arrival Date: 08/02/2024 20:37:56 Discharge Diagnosis: Anxiety Primary Care Physician: Yang VALENCIA MD Provider Information Primary Provider: Pasquale Nuñez DO Advanced Baker Second:None The exam and treatment you received in the Emergency Department were for an urgent problem and are not intended as complete care. It is important that you follow up with a doctor, nurse practitioner, or physician???s professional nursing assistant for ongoing care. If your symptoms become worse or you do not improve as expected and you are unable to reach your usual health care provider, you should return to the Emergency Department. We are available 24 hours a day. HOSEA ALVAREZ has been given the following list of patient education materials, prescriptions and follow-up instructions: Follow-up Instructions: With: Address: When: [facility] In 3 days 08/05/2024 Comments: Follow-up with your primary care doctor and mental health for further evaluation management. With: Address: When: Yang VALENCIA [address] [place] [phone] Business (1) In 3 days 08/05/2024 In the event that this physician does not participate in your insurance network, please consult with your insurance company to find a nearby participating provider. Patient Education Materials: Panic Attack, Gujh-un-Fceo A MESSAGE TO ALL PATIENTS REGARDING OPIOIDS PRESCRIPTION OPIOIDS: WHAT YOU NEED TO KNOW Prescription opioids can be used to help relieve skuahymo-pb-ksljzb pain and are often prescribed following a [...] Visit www. (more content not included)... Normal [facility] Ethanolon 08-02-2024 Ethanol Lvl 150 mg/dL Abnormal <=[address] [facility] Comment on above: Result Comment: Crit ical Result Verified by Repeat Analysis Critical Result S_ETOH:150 Called to and read back by: DR. NUÑEZ/ER at: 08/02/2024 21:49 by:VALORIE CUTLER Performed By: #### 2 [id number] #### [facility] [address] [place] [address] HEMATOLOGYOrdered By: SYSTEM SYSTEM on 08-02-2024 Basophils/100 [...] User: Ramya Ivey RN Referring Source: Location: [place] Completion Date/Time: 08/02/2024 20:27:00 [facility] Emergency Department Pre-Hospital Report Form Vital Signs: Pre-Hospital Report: Treatment in Route: Response to Treatment: Misc. Issues: Normal [facility] U Drug Screenon 08-02-2024 Amphetamines Screen method >1000 ng/mL Ql (U) Negative Normal NEGATIVE [facility] Comment on above: Result Comment: Nega tive Cutoff: <1000 ng/mL Performed By: #### 2 [id number] #### [facility] [address] [place] [address] Barbiturates Screen Ql (U) Negative Normal NEGATIVE [facility] Comment on above: Result Comment: Nega tive Cutoff: <200 ng/mL Performed By: #### 2 [id number] #### [facility] [address] [place] [address] Benzodiazepines Ql (U) Negative Normal NEGATIVE [facility] Comment on above: Result Comment: Nega tive Cutoff: <200 ng/mL Performed By: #### 2 [id number] #### [facility] [address] [place] [address] Cannabinoids Screen Ql (U) Negative Normal NEGATIVE [facility] Comment on above: Result Comment: Nega tive Cutoff: <50 ng/mL Performed By: #### 2 [id number] #### [facility] [address] [place] [address] Cocaine Ql (U) Negative Normal NEGATIVE [facility] Comment on above: Result Comment: Nega tive Cutoff: <300 ng/mL Performed By: #### 2 [id number] #### [facility] [address] [place] [address] Opiates Screen Ql (U) Negative Normal NEGATIVE [facility] Comment on above: Result Comment: Nega tive Cutoff: <300 ng/mL Performed By: #### 2 [id number] #### [facility] [address] [place] [address] Phencyclidine Screen method >25 ng/mL Ql (U) Negative Normal NEGATIVE [facility] Comment on above: Result Comment: Nega tive Cutoff: <25 ng/mL These drug screen results are to be used for medical (i.e., treatment) purposes only. Unconfirmed drug screening results must not be used for non-medical purposes (e.g., employment testing, legal testing). Performed By: #### 2 [id number] #### [facility] [address] [place] [address] U Fentanyl Negative Normal NEGATIVE [facility] Comment on above: Result Comment: Nega tive Cutoff: <5 ng/mL These drug screen results are to be used for medical (i.e., treatment) purposes only. Unconfirmed drug screening results must not be used for non-medical purposes (e.g., employment testing, legal testing). Performed By: #### 2 [id number] #### [facility] [address] [place] [address] UA with Cult Rflxon 08-02-20 24 Bilirubin Ql (U) Negative Normal Negative [facility] Comment on above: Performed By: #### 4 [id number] #### [facility] [address] [place] [address] Clarity (U) Clear Normal Clear [facility] Comment on above: Performed By: #### 4 [id number] #### [facility] [address] [place] [address] Color (U) Light-Yellow Normal Yellow [facility] Comment on above: Result Comment: Micr oscopic readings are only performed on those samples that meet specific criteria set forth by [facility]. Performed By: #### 4 [id number] #### [facility] [address] [place] [address] Glucose Ql (U) Negative Normal Negative [facility] Comment on above: Performed By: #### 4 [id number] #### [facility] [address] [place] [address] Hemoglobin Auto test strip (U) [Mass/Vol] Negative Normal Negative [facility] Comment on above: Performed By: #### 4 [id number] #### [facility] [address] [place] [address] Ketones Auto test strip Ql (U) Negative Normal Negative [facility] Comment on above: Performed By: #### 4 [id number] #### [facility] [address] [place] [address] Leukocyte esterase Auto test strip Ql (U) Negative Normal Negative [facility] Comment on above: Performed By: #### 4 [id number] #### [facility] [address] [place] [address] Nitrite Auto test strip Ql (U) Negative Normal Negative [facility] Comment on above: Performed By: #### 4 [id number] #### [facility] [address] [place] [address] pH (U) 5.0 [pH] Invalid Interpretation Code 5.0-9.[address] [facility] Comment on above: Performed By: #### 4 [id number] #### [facility] [address] [place] [address] Protein Ql (U) Negative Normal Negative [facility] Comment on above: Performed By: #### 4 [id number] #### [facility] [address] [place] [address] Specific gravity (U) [Rel density] 1.012 Invalid Interpretation Code 1.005-1.[address] [facility] Comment on above: Performed By: #### 4 [id number] #### [facility] [address] [place] [address] Urobilinogen (U) [Mass/Vol] Negative Normal Negative [facility] Comment on above: Performed By: #### 4 [id number] #### [facility] [address] [place] [address] Type of Urine collection method Clean Catch Normal [facility] Comment on above: Performed By: #### 4 [id number] #### [facility] [address] [place] [id number] URINALYSISOrdered By: SYSTEM SYSTEM on 08-02-2024 Bilirubin Ql (U) Negative Normal Negativemg/ d L [facility] UA Auto SS Clarity (U) Clear (08/02/24 9:31 PM) Normal Clear [facility] UA Auto SS Color (U) Light-Yellow 3 (08/02/24 9:31 PM) Normal Yellow [facility] UA Auto SS Comment on above: Interpretive Data: M icroscopic readings are only performed on those samples that meet specific criteria set forth by [facility]. Glucose Ql (U) Negative Normal Negativemg/d [...] Urobilinogen (U) [Mass/Vol] Negative Normal Negativemg/d L [facility] UA Auto SS URINALYSISOrdered By: Chen Nuñez on 08-02-2024 UA Spec Desc Clean Catch (08/02/24 9:31 PM) Normal [facility] UA Auto SS eGFRon 08-02-2024 eGFR 72 mL/min/1.73 m2 Normal >=[address] [facility] Comment on above: Performed By: #### 1 [id number] #### [facility] [address] [place] [address] CBC AND AUTO DIFFon 07-25-20 ABSOLUTE BASOPHIL 0.0 X10E9/L Normal 0.0-0.2 [facility] Comment on above: Performed By: #### C BCA, CMP, 5643-2, 99348-9, 44586-8 #### [facility] ([id number]) [address] [place] [address] ABSOLUTE NEUTROPHIL 2.4 X10E9/L Normal 1.5-6.6 [facility] Comment on above: Performed By: #### C BCA, CMP, 5643-2, , 66407-4 #### [facility] ([id number]) [address] [place] [address] Basophils/100 WBC (Bld) 0.3 % Normal [facility] Comment on above: Performed By: #### C BCA, CMP, 5643-2, 19108-1, 09150-6 #### [facility] ([id number]) [address] [place] [address] Eosinophils (Bld) [#/Vol] 0.1 10*3/uL Normal 0.0-0.4 [facility] Comment on above: Performed By: #### C BCA, CMP, 5643-2, 22815-1, 14996-8 #### [facility] ([id number]) [address] [place] [address] Eosinophils/100 WBC (Bld) 2.6 % Normal [facility] Comment on above: Performed By: #### C LOTUS HUDSON, 5643-2, , 12799-1 #### [facility] ([id number]) [address] [place] [address] Erythrocyte distribution width (RBC) [Ratio] 13.1 % Normal 11.5-15.0 [facility] Comment on above: Performed By: #### Jannet HUDSON CMP, 43-2, , 36893-0 #### [facility] ([id number]) [address] [place] [address] Hematocrit (Bld) [Volume fraction] 37.7 % Low 39-49 [facility] Comment on above: Performed By: #### Jannet HUDSON [facility], 5643-2, , 92037-4 #### [facility] ([id number]) [address] [place] [address] Hemoglobin (Bld) [Mass/Vol] 13.0 g/dL Normal 13.0-17.0 [facility] Comment on above: Performed By: #### C LOTUS HUDSON, 43-2, , 69040-1 #### [facility] ([id number]) [address] [place] [address] Lymphocytes (Bld) [#/Vol] 0.9 10*3/uL Low 1.0-3.5 [facility] Comment on above: Performed By: #### C LOTUS HUDSON, 5643-2, , 76795-8 #### [facility] ([id number]) [address] [place] [address] Lymphocytes/100 WBC (Bld) 23.8 % Normal [facility] Comment on above: Performed By: #### C TRISTAN, CMP, 5643-2, , 93143-6 #### [facility] ([id number]) [address] [place] [address] MCH (RBC) [Entitic mass] 29.6 pg Normal 27-34 [facility] Comment on above: Performed By: #### Jannet HUDSON, CMP, 5643-2, , 01308-6 #### [facility] ([id number]) [address] [place] [address] MCHC (RBC) [Mass/Vol] 34.5 g/dL Normal 32-36 [facility] Comment on above: Performed By: #### Jannet HUDSON, CMP, 5643-2, , 19981-6 #### [facility] ([id number]) [address] [place] [address] MCV (RBC) [Entitic vol] 86 fL Normal 80-100 [facility] Comment on above: Performed By: #### Jannet HUDSON, CMP, 43-2, , 09800-2 #### [facility] ([id number]) [address] [place] [address] Monocytes (Bld) [#/Vol] 0.3 10*3/uL Normal 0-0.9 [facility] Comment on above: Performed By: #### Jannet HUDSON, CMP, 5643-2, , 67252-2 #### [facility] ([id number]) [address] [place] [address] Monocytes/100 WBC (Bld) 9.0 % Normal [facility] Comment on above: Performed By: #### Jannet HUDSON, CMP, 5643-2, , 45328-4 #### [facility] ([id number]) [address] [place] [address] Neutrophils/100 WBC (Bld) 64.3 % Normal [facility] Comment on above: Performed By: #### C LOTUS HUDSON, 5643-2, , 94024-4 #### [facility] ([id number]) [address] [place] [address] Platelet mean volume (Bld) [Entitic vol] 9.4 fL Normal 7-12 [facility] Comment on above: Performed By: #### C TRISTAN, CMP, 5643-2, , 69864-7 #### [facility] ([id number]) [address] [place] [address] Platelets (Bld) [#/Vol] 144 10*3/uL Low 150-450 [facility] Comment on above: Performed By: #### C LOTUS HUDSON, 43-2, , 47984-8 #### [facility] ([id number]) [address] [place] [address] RBC COUNT 4.40 X10E12/L Normal 4.10-5.70 [facility] Comment on above: Performed By: #### C TRISTAN, CMP, 5643-2, , 62094-7 #### [facility] ([id number]) [address] [place] [address] WBC (Bld) [#/Vol] 3.7 10*3/uL Low 4.0-11.0 [facility] Comment on above: Performed By: #### C TRISTAN, CMP, 5643-2, , 03035-3 #### [facility] ([id number]) [address] [place] [address] COMPREHENSIVE METABOLIC PANE Bart 07-25-2024 Albumin [Mass/Vol] 4.0 g/dL Normal 3.2-5.3 [facility] Comment on above: Performed By: #### C BCA, CMP, 5643-2, 48454-8, 16825-5 #### [facility] ([id number]) [address] [place] [address] ALP [Catalytic activity/Vol] 59 U/L Normal 39-130 [facility] Comment on above: Performed By: #### C BCA, CMP, 5643-2, , 09616-4 #### [facility] ([id number]) [address] [place] [address] 71887 ALT [Catalytic activity/Vol] 28 U/L Normal 0-40 [facility] Comment on above: Performed By: #### C BCA, CMP, 5643-2, , 21922-1 #### [facility] ([id number]) [address] [place] [address] Anion gap [Moles/Vol] 10 mmol/L Normal 5-15 [facility] Comment on above: Performed By: #### C BCA, CMP, 5643-2, , 45069-1 #### [facility] ([id number]) [address] [place] [address]146 AST [Catalytic activity/Vol] 21 U/L Normal 0-41 [facility] Comment on above: Performed By: #### C BCA, CMP, 5643-2, , 78239-6 #### [facility] ([id number]) [address] [place] [address] Bilirubin [Mass/Vol] 0.5 mg/dL Normal 0.3-1.2 [facility] Comment on above: Performed By: #### C BCA, CMP, 5643-2, 75581-5, 13565-6 #### [facility] ([id number]) [address] [place] [address] Calcium [Mass/Vol] 9.3 mg/dL Normal 8.5-10.5 [facility] Comment on above: Performed By: #### C LOTUS HUDSON, 5643-2, , 90482-3 #### [facility] ([id number]) [address] [place] [address]1607 Chloride [Moles/Vol] 106 mmol/L Normal 98-109 [facility] Comment on above: Performed By: #### C LOTUS HUDSON, 5643-2, , 65859-0 #### [facility] ([id number]) [address] [place] [address] 68996 CO2 [Moles/Vol] 25 mmol/L Normal 22-32 [facility] Comment on above: Performed By: #### C LOTUS HUDSON, 5643-2, , 85460-9 #### [facility] ([id number]) [address] [place] [address] 6[address] Creatinine [Mass/Vol] 1.20 mg/dL Normal 0.70-1.20 [facility] Comment on above: Result Comment: METH OD TRACEABLE TO IDMS STANDARD Performed By: #### C LOTUS HUDSON, 5643-2, , 24756-2 #### [facility] ([id number]) [address] [place] [address] 14395 GFR/1.73 sq M.predicted among non-blacks MDRD (S/P/Bld) [Vol rate/Area] 72 mL/min/{1.73_m2} Normal >59 [facility] Comment on above: Result Comment: Reported eGFR is based on the CKD-EPI 2020 equation that does not use a race coefficient. Performed By: #### C LOTUS HUDSON, 5643-2, 02421-2, 72530-3 #### [facility] ([id number]) [address] [place] [address]0979 Glucose [Mass/Vol] 102 mg/dL High 65-99 [facility] Comment on above: Performed By: #### C LOTUS HUDSON, 5643-2, 10614-1, 76097-0 #### [facility] ([id number]) [address] [place] [address] 08518 Potassium [Moles/Vol] 3.8 mmol/L Normal 3.5-5.0 [facility] Comment on above: Performed By: #### C TRISTAN, LOTUS, 5643-2, , 06397-2 #### [facility] ([id number]) [address] [place] [address] 38505 Protein [Mass/Vol] 7.4 g/dL Normal 6.0-8.0 [facility] Comment on above: Performed By: #### Jannet HUDSON CMP, 5643-2, , 60513-2 #### [facility] ([id number]) [address] [place] [address] 89226 Sodium [Moles/Vol] 141 mmol/L Normal 134-146 [facility] Comment on above: Performed By: #### C LOTUS HUDSON, 5643-2, , 98679-9 #### [facility] ([id number]) [address] [place] [address] 36877 Urea nitrogen [Mass/Vol] 23 mg/dL Normal 5-23 [facility] Comment on above: Performed By: #### C TRISTAN, CMP, 5643-2, , 24404-9 #### [facility] ([id number]) [address] [place] [address] 11786 ETHANOLon 07-25-2024 Ethanol [Mass/Vol] mg/dL Normal 0.00-0.08 [facility] Comment on above: Result Comment: This report is intended for use in clinical monitoring or management of patients. Performed By: #### C LOTUS HUDSON, 5643-2, 84379-4, 59013-2 #### [facility] ([id number]) [address] [place] [address] 36781 MAGNESIUMon 07-25-2024 Magnesium [Mass/Vol] 1.8 mg/dL Normal 1.8-2.6 [facility] Comment on above: Performed By: #### C LOTUS HUDSON, 5643-2, 49816-1, 71906-0 #### [facility] ([id number]) [address] [place] [address] 44064 Troponin I.cardiac High sens itivity method [Mass/Vol]on 07-25-2024 1 HOUR TROP I, HIGH SENSITIVITY 4 ng/L Normal <21 [facility] Comment on above: Performed By: #### 8 9579-7 #### [facility] ([id number]) [address] [place] [address] 24160 TROPONIN I, HIGH SENSITIVITY 3 ng/L Normal <21 [facility] Comment on above: Performed By: #### C LOTUS HUDSON, 5643-2, 15004-1, 15940-4 #### [facility] ([id number]) [address] [place] [address] 99785 XR CHEST 1 VWon 07-25-2024 XR CHEST [...] MD on 07/25/2024 3:57 AM Normal [facility] Ambulatory Visit Summaryon 1 Ambulatory Visit [...] or as directed by physician Pickup at [facility] New psyllium (Metamucil 3.4 g/ 5.2 g oral powder) 3.4 Gram By Mouth 3 times a day as needed for for constipation Abdominal pain Refills: 3 Pickup at [facility] Unchanged clonidine (cloNIDine 0.2 mg Tab) [...] physician if questions or concerns Pharmacy Information Managed [facility]: [address], [place] [id number] [phone] Allergies Ativan (Ill) Problems Ongoing - Any [...] choosing us for your care. Normal [facility] Gastroenterology Office/Clin ic Noteon 2024 Gastroenterology Office/Clinic Note Gastroenterology Office/Clinic Note Chief Complaint follow up ER, abd pain HPI Staff Patient is a(n) 53 year old male who presents today for a f/u from [facility] 07/[facility] for history of abdominal pain. [...] no. GLP-1 agonists? no. dr smith in [place]. CT 07/14/24 @ [facility]: IMPRESSION: No acute findings. No bowel [...] box directions or as directed by physician, [facility], 167, cm, 07/20/24 11:11:00 EDT, Height/Length Dosing, 95, kg, 06/24... psyllium, 3.4 gram, Oral, TID, PRN for constipation, # 283 gram, Refills(s) 3, Pharmacy: [facility], 167, cm, 07/20/24 11:11:00 EDT, Height/Length Dosing, 95, kg, 07/20/24 11:11:00 EDT, Weight Dosing Colonoscopy (Hospital Procedure) Colonoscopy (Hospital Procedure) E&M of New Patient Moderate 45-59 Min 97038 E&M of New Patient Moderate 45-59 Min 71230 E&M of New Patient Moderate 45-59 Min 25898 EGD Endoscopy (Hospital Procedure) EGD Endoscopy (Hospital Procedure) 2. Constipation (K59.00: Constipation, unspecified) Ordered: magnesium/potassium/sodi um sulfates (obsolete), 177 mL, Oral, As Directed for 2 dose(s), 1 kit(s), Refill(s) 0, dilute each 177 ml bottle and drink according to box directions or as directed by physician, ReturnHauler #[id number], 167, cm, 07/20/24 11:11:00 EDT, Height/Length Dosing, 95, kg, 06/24... Colonoscopy (Hospital Procedure) E&M of New Patient Moderate 45-59 Min 02592 E&M of New Patient Moderate 45-59 Min 30682 EGD Endoscopy (Hospital Procedure) Follow-up No qualifying [...] Family History Family history is negative Normal 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 DIAGNOSIS: Anxiety Normal [facility] ED Note-Physicianon 07-18-20 ED Note-Physician ED Note-Physician Basic Information Time Seen: Benjamin Neil M. 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 I feel like I'm having a mental health disorder and a panic attack History of Present Illness 53-year-old male to the emergency department chief complaint of anxiety. Patient reports he feels like he is going to have a panic attack. 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 Normal [facility] Comment on above: Result Comment: Elec tronically Signed By: Neil Alexadner DO\.br\Date and Time Signed: 07/18/24 00:55 EDT ED Patient Summaryon 024 ED Patient Summary ED Patient Summary [address] [address] Patient Discharge Instructions Person Information Name: HOSEA ALVAREZ Age: 53 Years Arrival Date: 07/17/2024 20:34:32 Discharge Diagnosis: Anxiety Primary Care Physician: Yang VALENCIA MD Provider Information Primary Provider: Neil Alexander DO Advanced [facility] Second:None The exam and treatment you received in the Emergency Department were for an urgent problem and are not intended as complete care. It is important that you follow up with a doctor, nurse practitioner, or physician???s professional nursing assistant for ongoing care. If your symptoms [...] Instructions: With: Address: When: Elizabet Mackay [address] [facility] [address] [place], [place] [id number] In 3 days 07/21/2024 Comments: Call the [...] opioids can be used to help relieve qfqaclys-wv-gccqae pain and are often prescribed following a [...] prescription opioids (more content not included)... Normal [facility] ED Note-Physicianon 07-17-20 ED Note-Physician ED Note-Physician Basic Information Time Seen: Neil Alexander DO 07/16/2024 21:21 Chief Complaint states has been having panic attacks. states something is triggering these but andre only tell the physician. History of Present Illness 53-year-old male to the emergency department with chief complaint of panic attacks. Patient reports that amongst other places he is currently living in [facility]. He reports that he has sought care at several local emergency departments. He reports that at [facility] he was told today that [...] appointment for 10 AM tomorrow with the [place] office. Return precautions were discussed. All questions were answered. The patient was discharged home. Assessment/Plan Anxiety (F41.9: Anxiety disorder, unspecified) Orders: Consult to Mental Health Disposition Plan Patient Discharge Condition Stable Discharge Disposition Home Discharge Prescription List Prescriptions No active prescription medications Follow-up With When Contact Information [facility] In 3 days 07/19/2024 EDT Additional Instructions: You have an appointment at the [place] office tomorrow at 10 AM. Yang VALENCIA In 3 days 07/19/[address] [place], [place] [id number] Business (1) Additional Instructions: Call the office [...] Cigars, 05/16/2019 (more content not included)... Normal [facility] Comment on above: Result Comment: Elec tronically Signed By: Neil Alexander DO\.br\Date and Time Signed: 07/17/24 00:31 EDT Automated basophil %Ordered By: Jaylin Rossi on 07-16-2024 Basophils/100 WBC (Bld) 0.5 % Normal . [facility] Comment on above: Performed By: #### H S TROP, CBC, CK, BMP, PT, DDIMER, BNP #### [facility] [address] Automated basophil countOrde red By: Jaylin Rossi on 07-16-2024 Basophils (Bld) [#/Vol] 0.0 10*3/uL Normal 0.0-0.2 [facility] Comment on above: Result Comment: PERF ORMED BY: [facility] [address] [place] [address] PATHOLOGIST ROTARY FILTER OPERATOR CHER LAGUNA M.D. Performed By: #### H S TROP, CBC, CK, BMP, PT, DDIMER, BNP #### [facility] [address] [place] [address] Automated blood monocyte cou ntOrdered By: Jaylin Rossi on 07-16-2024 Monocytes (Bld) [#/Vol] 0.4 10*3/uL Normal 0.0-0.8 [facility] Comment on above: Performed By: #### H S TROP, CBC, CK, BMP, PT, DDIMER, BNP #### [facility] [address] [place] [address] Automated eosinophil %Ordere d By: Jaylin Rossi on 07-16-2024 Eosinophils/100 WBC (Bld) 1.4 % Normal . [facility] Comment on above: Performed By: #### H S TROP, CBC, CK, BMP, PT, DDIMER, BNP #### [address] Automated eosinophil countOr dered By: Jaylin Rossi on 07-16-2024 Eosinophils (Bld) [#/Vol] 0.1 10*3/uL Normal 0.0-0.45 [facility] Comment on above: Performed By: #### H S TROP, CBC, CK, BMP, PT, DDIMER, BNP #### [address] Automated monocyte %Ordered By: Jaylin Rossi on 07-16-2024 Monocytes/100 WBC (Bld) 8.3 % Normal . [facility] Comment on above: Performed By: #### H S TROP, CBC, CK, BMP, PT, DDIMER, BNP #### [address] Automated neutrophil %Ordere d By: Jaylin Rossi on 07-16-2024 Neutrophils/100 WBC (Bld) 73.4 % Normal . [facility] Comment on above: Performed By: #### H S TROP, CBC, CK, BMP, PT, DDIMER, BNP #### [address] BNP ser/plasOrdered By: Bharat Rossi on 07-16-2024 Natriuretic peptide B (Bld) [Mass/Vol] 51.0 pg/mL Normal 5-100 [facility] Comment on above: Result Comment: PERF ORMED BY: [place] [address] PATHOLOGIST ROTARY FILTER OPERATOR CHER LAGUNA M.D. Performed By: #### H S TROP, CBC, CK, BMP, PT, DDIMER, BNP #### [address] Basic Metabolic Panelon 06-24 Creatinine Clr Calc Pharmacy 84.56 Normal [facility] Comment on above: Result Comment: PERF ORMED BY: [place] [address] PATHOLOGIST ROTARY FILTER OPERATOR CHER LAGUNA M.D. Performed By: #### H S TROP, CBC, CK, BMP, PT, DDIMER, BNP #### [address] GFR/1.73 sq M.predicted MDRD (S/P/Bld) [Vol rate/Area] mL/min/{1.73_m2} Normal [facility] Comment on above: Performed By: #### H S TROP, CBC, CK, BMP, PT, DDIMER, BNP #### [address] angio cheston 07-16-2024 CT angio chest [facility] [place] [address] [place] [address] CT Scan Report Signed Patient: Hosea Alvarez MR#: [id number] : 1970 Acct:[id number] Age/Sex: 53 / M ADM Date: 07/16/24 Loc: ER Room: Type: [facility] ER Attending Dr: Copies to: Jaylin [...] Irma Ortiz M.D.07/16/2024 3:18 PM Dictation Location: [place] [address] Transcribed By: SOL 07/16/241517 Dictated By: Irma Ortiz MD 07/16/241510 Signed By: 07/16/241517 Normal [facility] Calcium [Mass/volume] in Ser um or PlasmaOrdered By: Jaylin Rossi on 07-16-2024 Calcium [Mass/Vol] 8.4 mg/dL Low 8.6-10.3 [facility] Comment on above: Performed By: #### H S TROP, CBC, CK, BMP, PT, DDIMER, BNP #### [facility] [address] Carbon dioxide, total [Moles /volume] in Serum or PlasmaOrdered By: Jaylin Rossi on 07-16-2024 CO2 [Moles/Vol] 22.7 mmol/L Normal 21.0-31.0 [facility] Comment on above: Performed By: #### H S TROP, CBC, CK, BMP, PT, DDIMER, BNP #### [facility] [address] [place] [address] [place] Chloride [Moles/volume] in S karolyn or PlasmaOrdered By: Jaylin Rossi on 07-16-2024 Chloride [Moles/Vol] 103 mmol/L Normal 98-107 [facility] Comment on above: Performed By: #### H S TROP, CBC, CK, BMP, PT, DDIMER, BNP #### [address] Complete Blood Count Auto Di ffon 07-16-2024 Mean Corpuscular HGB Conc 33.7 g/dL Normal 32.5-35.6 [facility] Comment on above: Performed By: #### H S TROP, CBC, CK, BMP, PT, DDIMER, BNP #### [address] Monocytes/100 WBC (Bld) 18.93 % Normal 0.00-20.00 [facility] Comment on above: Performed By: #### H S TROP, CBC, CK, BMP, PT, DDIMER, BNP #### [address] NRBC% 0.2 /100{WBC} Normal 0-0.5 [facility] Comment on above: Performed By: #### H S TROP, CBC, CK, BMP, PT, DDIMER, BNP #### [address] Creatine kinase [Enzymatic a ctivity/volume] in Serum or PlasmaOrdered By: aJylin Rossi on 07-16-2024 CK [Catalytic activity/Vol] 99 U/L Normal 30-223 [facility] Comment on above: Performed By: #### H S TROP, CBC, CK, BMP, PT, DDIMER, BNP #### [address] Creatinine [Mass/volume] in Serum or PlasmaOrdered By: Jaylin Rossi on 07-16-2024 Creatinine [Mass/Vol] 1.11 mg/dL Normal 0.70-1.30 [facility] Comment on above: Performed By: #### H S TROP, CBC, CK, BMP, PT, DDIMER, BNP #### [address] D-Dimer High Sensitivityon 1 D-Dimer High Sensitivity < 200 Normal 0-243 [facility] Comment on above: Result [...] coagulation studies. Please contact the laboratory at [phone] for redraw instructions. PERFORMED BY: [place] [address] PATHOLOGIST ROTARY FILTER OPERATOR CHER LAGUNA M.D. Performed By: #### H S TROP, CBC, CK, BMP, PT, DDIMER, BNP ####[facility] [address] [place] [id number] [facility] ECG 12 lead ECGon 07-16-2024 ECG 12 lead ECG [facility] [place] [address] [place] [address] Electrocardiograph Report Signed Patient: Hosea Alvarez MR#: [id number] : 1970 Acct:[id number] Age/Sex: 53 / M ADM Date: 07/16/24 Loc: ER Room: Type: [facility] ER Attending Dr: Ordering Provider: Jaylin [...] Abnormal ECG Confirmed by Jaylin Rossi MD ([id number]) on 07/16/2024 3:46:07 PM Referred By: Electronically Signed By: Jaylin Rossi MD Transcribed By: MUS Signed By Jaylin Rossi MD 06/24 01/14 1546 Normal [facility] ED Clinical Summaryon 2023 ED Clinical Summary ED Clinical Summary [place] [id number] ED Clinical Summary Person Information Name: HOSEA ALVAREZ/[facility] Age: 53 Years : 1970 Sex: Male Language: Scottish PCP: Yang VALENCIA MD Marital Status: Single [...] 07/16/2024 23:08:48 07/16/2024 23:08:48 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 With: Address: When: Yang VALENCIA [address] [place], [place] [address] [place] [id number] In 3 days 07/19/2024 Comments: Call the [...] new or worsening symptoms. DIAGNOSIS: Anxiety Normal [facility] ED Note-Nursingon 07-16-2024 ED Note-Nursing ED Note-Nursing this RN contacted [facility] at approx [phone]. this RN gave pt report to Lynette at [facility] pt requesting to speak to [facility], denies SI and HI. Lynette transferred to portable phone to talk with pt at this time. Lynette called this RN back at approx [phone]. pt has set appointment at 1000 tomorrow at the [place] office. pt verbalizes understanding and denies further needs or questions at this time. Normal [facility] ED Patient Summaryon 024 ED Patient Summary ED Patient Summary [address] [address] Patient Discharge Instructions Person Information Name: HOSEA ALVAREZ Age: 53 Years Arrival Date: 07/16/2024 21:11:22 Discharge Diagnosis: Anxiety Primary Care Physician: Yang VALENCIA MD Provider Information Primary Provider: Neil Alexander DO Advanced Baker Second:Korin The exam and treatment you received in the Emergency Department were for an urgent problem and are not intended as complete care. It is important that you follow up with a doctor, nurse practitioner, or physician???s professional nursing assistant for ongoing care. If your symptoms become worse or you do not improve as expected and you are unable to reach your usual health care provider, you should return to the Emergency Department. We are available 24 hours a day. HOSEA ALVAREZ has been given the following list of patient education materials, prescriptions and follow-up instructions: Follow-up Instructions: With: Address: When: [facility] In 3 days 07/19/2024 Comments: You have an appointment at the [facility] tomorrow at 10 AM. With: Address: When: Yang VALENCIA [address] [place] [address] [facility] (1) In 3 days 07/19/2024 Comments: Call [...] opioids can be used to help relieve yreineqo-fy-qegdby pain and are often prescribed following a [...] and all (more content not included)... Normal [facility] Erythrocyte distribution wid th [Ratio] by Automated countOrdered By: Jaylin Rossi on 07-16-2024 Erythrocyte distribution width (RBC) [Ratio] 13.0 % Normal 12.0-14.8 [facility] Comment on above: Performed By: #### H S TROP, CBC, CK, BMP, PT, DDIMER, BNP #### [facility] [address] [place] [address] [place] Erythrocytes [#/volume] in B lood by Automated countOrdered By: Jaylin Rossi on 07-16-2024 RBC (Bld) [#/Vol] 4.44 10*6/uL Normal 3.90-5.60 [facility] Comment on above: Performed By: #### H S TROP, CBC, CK, BMP, PT, DDIMER, BNP #### [facility] [address] Fibrin D-dimer [Presence] in Platelet poor plasma by Latex agglutinationOrdered By: Jaylin Rossi on 07-16-2024 Fibrin D-dimer LA Ql (PPP) < 200 ng/mL 0-243 [facility] Comment on above: The reference range [...] coagulation studies. Please contact the laboratory at [phone] for redraw instructions. Glucose [Mass/volume] in Ser um or PlasmaOrdered By: Jaylin Rossi on 07-16-2024 Glucose [Mass/Vol] 122 mg/dL High 70-100 [facility] Comment on above: ADA recommended refe rence rangeRandom Glucose Reference Range is dependent on time and content of last meal. Glucose of more than 200 mg/dL in a nonstressed, ambulatory subject supports the diagnosis of Diabetes Mellitus. Result Comment: [place] om Glucose Reference Range is dependent on time and content of last meal. Glucose of more than 200 mg/dL in a nonstressed, ambulatory subject supports the diagnosis of Diabetes Mellitus. ADA recommended reference range Performed By: #### H S TROP, CBC, CK, BMP, PT, DDIMER, BNP #### [address] Hematocrit [Volume Fraction] of Blood by Automated countOrdered By: Jaylin Rossi on 07-16-2024 Hematocrit (Bld) [Volume fraction] 38.3 % Low 38.8-50.0 [facility] Comment on above: Performed By: #### H S TROP, CBC, CK, BMP, PT, DDIMER, BNP #### [facility] [address] Hemoglobin [Mass/volume] in BloodOrdered By: Jaylin Rossi on 07-16-2024 Hemoglobin (Bld) [Mass/Vol] 12.9 g/dL Low 13.0-17.0 [facility] Comment on above: Performed By: #### H S TROP, CBC, CK, BMP, PT, DDIMER, BNP #### [facility] [address] INR in Platelet poor plasma by Coagulation assayOrdered By: Jaylin Rossi on 07-16-2024 INR Coag (PPP) [Relative time] 0.9 {INR} Normal [facility] Comment on above: INR Therapeutic Rang [...] TROP, CBC, CK, BMP, PT, DDIMER, BNP ####[facility] [id number] [address] Leukocytes [#/volume] correc sebastián for nucleated erythrocytes in Blood by Automated counOrdered By: Jaylin Rossi on 07-16-2024 WBC corrected for nucl RBC Auto (Bld) [#/Vol] 4.3 10*3/uL 4.1-10.5 [facility] Leukocytes [#/volume] in Blo od by Automated countOrdered By: Jaylin Rossi on 07-16-2024 WBC (Bld) [#/Vol] 4.3 10*3/uL Normal 4.1-10.5 [facility] Comment on above: Performed By: #### H S TROP, CBC, CK, BMP, PT, DDIMER, BNP #### [facility] [address] Lymphocytes [#/volume] in Bl ood by Automated countOrdered By: Jaylin Rossi on 07-16-2024 Lymphocytes (Bld) [#/Vol] 0.7 10*3/uL Low 1.00-4.8 [facility] Comment on above: Performed By: #### H S TROP, CBC, CK, BMP, PT, DDIMER, BNP #### [facility] [address] [place] [address] [place] Lymphocytes/100 leukocytes i n Blood by Automated countOrdered By: Jaylin Rossi on 07-16-2024 Lymphocytes/100 WBC (Bld) 16.4 % Normal . [facility] Comment on above: Performed By: #### H S TROP, CBC, CK, BMP, PT, DDIMER, BNP #### [address] MCH [Entitic mass] by Automa sebastián countOrdered By: Jaylin Rossi on 07-16-2024 MCH (RBC) [Entitic mass] 29.0 pg Normal 27.5-35.2 [facility] Comment on above: Performed By: #### H S TROP, CBC, CK, BMP, PT, DDIMER, BNP #### [address] MCHC Auto (RBC) [Mass/Vol]Or dered By: Jaylin Rossi on 07-16-2024 MCHC (RBC) [Mass/Vol] 33.7 g/dL 32.5-35.6 [facility] MCV [Entitic volume] by Auto mated countOrdered By: Jaylin Rossi on 07-16-2024 MCV (RBC) [Entitic vol] 86.2 fL Normal 83.5-101 [facility] Comment on above: Performed By: #### H S TROP, CBC, CK, BMP, PT, DDIMER, BNP #### [address] Monocyte distribution width [Entitic volume] in Blood by AutomatedOrdered By: Jaylin Rossi on 07-16-2024 Monocyte distribution width Auto (Bld) [Entitic vol] 18.93 % 0.00-20.00 [facility] Neutrophils [#/volume] in Bl ood by Automated countOrdered By: Jaylin Rossi on 07-16-2024 Neutrophils (Bld) [#/Vol] 3.1 10*3/uL Normal 1.8-7.7 [facility] Comment on above: Performed By: #### H S TROP, CBC, CK, BMP, PT, DDIMER, BNP #### [facility] [address] [place] [address] No Panel InformationOrdered By: Jaylin Rossi on 07-16-2024 Estimated GFR (CKD-EPI) > 60.0 mL/Min [facility] Creatinine Clearance (Chem 84.56 [facility] Nucleated erythrocytes [Pres ence] in Blood by Automated countOrdered By: Jaylin Rossi on 07-16-2024 Nucleated RBC Auto Ql (Bld) 0.2 /100{WBC} 0-0.5 [facility] Platelet mean volume [Entiti c volume] in Blood by Automated countOrdered By: Jaylin Rossi on 07-16-2024 Platelet mean volume (Bld) [Entitic vol] 9.5 fL Normal 6.6-10.1 [facility] Comment on above: Performed By: #### H S TROP, CBC, CK, BMP, PT, DDIMER, BNP #### [facility] [address] [place] [address] Platelets [#/volume] in Bloo d by Automated countOrdered By: Jaylin Rossi on 07-16-2024 Platelets (Bld) [#/Vol] 141 10*3/uL Low 150-450 [facility] Comment on above: Performed By: #### H S TROP, CBC, CK, BMP, PT, DDIMER, BNP #### [facility] [address] [place] [address] Potassium [Moles/volume] in Serum or PlasmaOrdered By: Jaylin Rossi on 07-16-2024 Potassium [Moles/Vol] 4.3 mmol/L Normal 3.5-5.1 [facility] Comment on above: Performed By: #### H S TROP, CBC, CK, BMP, PT, DDIMER, BNP #### [address] Prothrombin time (PT)Ordered By: Jaylin Rossi on 07-16-2024 PT Coag (PPP) [Time] 10.9 s Normal 9.0-12.9 [facility] Comment on above: A hematocrit value g reater than 55% may lead to inaccurate results in coagulation testing. Patients having hematocrit values >55% require a special collection tube for coagulation studies. Please contact the laboratory at [phone] for redraw instructions. Result Comment: A he matocrit value greater than 55% may lead to inaccurate results in coagulation testing. Patients having hematocrit values >55% require a special collection tube for coagulation studies. Please contact the laboratory at [phone] for redraw instructions. Performed By: #### H S TROP, CBC, CK, BMP, PT, DDIMER, BNP ####[facility] Crt[address] Serum or plasma anion gap de terminationOrdered By: Jaylin Rossi on 07-16-2024 Anion gap [Moles/Vol] 14.6 mmol/L Normal 6.0-15.0 [facility] Comment on above: Performed By: #### H S TROP, CBC, CK, BMP, PT, DDIMER, BNP #### [facility] [address] [place] [address] Sodium [Moles/volume] in Ser um or PlasmaOrdered By: Jaylin Rossi on 07-16-2024 Sodium [Moles/Vol] 136 mmol/L Normal 136-145 [facility] Comment on above: Performed By: #### H S TROP, CBC, CK, BMP, PT, DDIMER, BNP #### [facility] [address] Troponin I High Sensitivityo n 07-16-2024 Troponin I High Sensitivity 3.3 pg/mL Normal 0.0-20.0 [facility] Comment on above: Result Comment: PERF ORMED BY: [facility] [address] [place] [address] PATHOLOGIST ROTARY FILTER OPERATOR CHER LAGUNA M.D. Performed By: #### H S TROP #### [facility] [address] [place] [address] Troponin I High Sensitivity 3.3 pg/mL Normal 0.0-20.0 [facility] Comment on above: Result Comment: PERF ORMED BY: [place] [address] PATHOLOGIST ROTARY FILTER OPERATOR CHER LAGUNA M.D. Performed By: #### H S TROP, CBC, CK, BMP, PT, DDIMER, BNP ####[facility] [id number] Troponin I.cardiac [Mass/vol ume] in Serum or Plasma by Detection limit <= 0.01 ng/Ordered By: Jaylin Rossi on 07-16-2024 Troponin I.cardiac DL <= 0.01 ng/mL [Mass/Vol] 3.3 pg/mL 0.0-20.0 [facility] Urea nitrogen [Mass/volume] in Serum or PlasmaOrdered By: Jaylin Rossi on 07-16-2024 Urea nitrogen [Mass/Vol] 20 mg/dL Normal 7-25 [facility] Comment on above: Performed By: #### H S TROP, CBC, CK, BMP, PT, DDIMER, BNP #### [facility] [address] [place] [address] XR chest 2V*on 07-16-2024 XR chest 2V* [facility] [place] [address] [place] [address] XRay Report Signed Patient: Hosea Alvarez MR#: [id number] : 1970 Acct:[id number] Age/Sex: 53 / M ADM Date: 07/16/24 Loc: ER Room: Type: [facility] ER Attending Dr: Copies to: Jaylin [...] Yang Rogers M.D.07/16/2024 1:14 PM Dictation Location: [place] [place] [address] Transcribed By: SOL 07/16/24 131 Dictated By: Yang Rogers DO 07/16/24 131 Signed By: 07/16/24 131 Normal [facility] Alanine aminotransferase [En zymatic activity/volume] in Serum or PlasmaOrdered By: Gustavo Mcclelland on 07-14-2024 ALT [Catalytic activity/Vol] 23 U/L Normal 7-52 [facility] Comment on above: Performed By: #### C BC, BMP, LIPASE, HEPATIC ####[place] [address] [address] Albumin [Mass/volume] in Ser um or Plasma by Bromocresol green (BCG) dye binding methoOrdered By: Gustavo Mcclelland on 07-14-2024 Albumin BCG dye [Mass/Vol] 4.5 g/dL 3.5-5.7 [facility] Alkaline phosphatase [Enzyma tic activity/volume] in Serum or PlasmaOrdered By: Gustavo Mcclelland on 07-14-2024 ALP [Catalytic activity/Vol] 53 U/L Normal 34-104 [facility] Comment on above: Performed By: #### C BC, BMP, LIPASE, HEPATIC ####[address] Aspartate aminotransferase [ Enzymatic activity/volume] in Serum or PlasmaOrdered By: Gustavo Mcclelland on 07-14-2024 AST [Catalytic activity/Vol] 19 U/L Normal 13-39 [facility] Comment on above: Performed By: #### C BC, BMP, LIPASE, HEPATIC ####[address] Automated basophil %Ordered By: Gustavo Mcclelland on 07-14-2024 Basophils/100 WBC (Bld) 0.6 % Normal . [facility] Comment on above: Performed By: #### C BC, BMP, LIPASE, HEPATIC ####[address] Automated basophil countOrde red By: Gustavo Mcclelland on 07-14-2024 Basophils (Bld) [#/Vol] 0.0 10*3/uL Normal 0.0-0.2 [facility] Comment on above: Result Comment: PERF ORMED BY: [facility] [address] [place] [address] PATHOLOGIST ROTARY FILTER OPERATOR CHER LAGUNA M.D. Performed By: #### C BC, BMP, LIPASE, HEPATIC ####[address] Automated blood monocyte cou ntOrdered By: Gustavo Mcclelland on 07-14-2024 Monocytes (Bld) [#/Vol] 0.3 10*3/uL Normal 0.0-0.8 [facility] Comment on above: Performed By: #### C BC, BMP, LIPASE, HEPATIC ####[address] Automated eosinophil %Ordere d By: Gustavo Mcclelland on 07-14-2024 Eosinophils/100 WBC (Bld) 2.1 % Normal . [facility] Comment on above: Performed By: #### C BC, BMP, LIPASE, HEPATIC ####[address] Automated eosinophil countOr dered By: Gustavo Mcclelland on 07-14-2024 Eosinophils (Bld) [#/Vol] 0.1 10*3/uL Normal 0.0-0.45 [facility] Comment on above: Performed By: #### C BC, BMP, LIPASE, HEPATIC ####[address] Automated monocyte %Ordered By: Gustavo Mcclelland on 07-14-2024 Monocytes/100 WBC (Bld) 7.0 % Normal . [facility] Comment on above: Performed By: #### C BC, BMP, LIPASE, HEPATIC ####[address] Automated neutrophil %Ordere d By: Gustavo Mcclelland on 07-14-2024 Neutrophils/100 WBC (Bld) 60.5 % Normal . [facility] Comment on above: Performed By: #### C BC, BMP, LIPASE, HEPATIC ####[facility] [id number] Basic Metabolic Panelon 06-24 Creatinine Clr Calc Pharmacy 83.35 Normal [facility] Comment on above: Performed By: #### C BC, BMP, LIPASE, HEPATIC ####[facility] [id number] [address] GFR/1.73 sq M.predicted MDRD (S/P/Bld) [Vol rate/Area] mL/min/{1.73_m2} Normal [facility] Comment on above: Performed By: #### C BC, BMP, LIPASE, HEPATIC ####[facility] [place] Bilirubin Test strip Ql (U)O rdered By: Gustavo Mcclelland on 07-14-2024 Bilirubin Ql (U) Negative Negative [facility] Bilirubin.direct [Mass/volum e] in Serum or PlasmaOrdered By: Gustavo Mcclelland on 07-14-2024 Bilirubin.direct [Mass/Vol] 0.10 mg/dL 0.03-0.18 [facility] Bilirubin.total [Mass/volume ] in Serum or PlasmaOrdered By: Gustavo Mcclelland on 07-14-2024 Bilirubin [Mass/Vol] 0.4 mg/dL Normal 0.3-1.0 [facility] Comment on above: Performed By: #### C BC, BMP, LIPASE, HEPATIC ####[facility] [place] abdomen pelvis w conon CT abdomen pelvis w con [facility] [address] [place] [address] [place] [address] CT Scan Report Signed Patient: Hosea Alvarez MR#: [id number] : 1970 Acct:[id number] Age/Sex: 53 / M ADM Date: 07/14/24 Loc: ER Room: Type: [facility] ER Attending Dr: Copies to: Gustavo [...] Yang Rogers M.D.07/14/2024 2:13 PM Dictation Location: [place] [address] Transcribed By: [facility] 07/14/24 1413 Dictated By: Yang Rogers DO 07/14/24 1409 Signed By: 07/14/24 1413 Normal [facility] Calcium [Mass/volume] in Ser um or PlasmaOrdered By: Gustavo Mcclelland on 07-14-2024 Calcium [Mass/Vol] 9.4 mg/dL Normal 8.6-10.3 [facility] Comment on above: Performed By: #### C BC, BMP, LIPASE, HEPATIC ####[facility] [id number] [place] [id number] [facility] Carbon dioxide, total [Moles /volume] in Serum or PlasmaOrdered By: Gustavo Mcclelland on 07-14-2024 CO2 [Moles/Vol] 21.7 mmol/L Normal 21.0-31.0 [facility] Comment on above: Performed By: #### C BC, BMP, LIPASE, HEPATIC ####[address] Chloride [Moles/volume] in S karolyn or PlasmaOrdered By: Gustavo Mcclelland on 07-14-2024 Chloride [Moles/Vol] 102 mmol/L Normal 98-107 [facility] Comment on above: Performed By: #### C BC, BMP, LIPASE, HEPATIC ####[address] Color of Urine by AutoOrdere d By: Gustavo Mcclelland on 07-14-2024 Color (U) Colorless Normal Yellow [facility] Comment on above: Order Comment: Name Collection Type:: Clean-Voided Midstream Performed By: #### U A ####[address] Complete Blood Count Auto Di ffon 07-14-2024 Mean Corpuscular HGB Conc 33.9 g/dL Normal 32.5-35.6 [facility] Comment on above: Performed By: #### C BC, BMP, LIPASE, HEPATIC ####[address] Monocytes/100 WBC (Bld) 19.18 % Normal 0.00-20.00 [facility] Comment on above: Performed By: #### C BC, BMP, LIPASE, HEPATIC ####[address] NRBC% 0.2 /100{WBC} Normal 0-0.5 [facility] Comment on above: Performed By: #### C BC, BMP, LIPASE, HEPATIC ####[address] Creatinine [Mass/volume] in Serum or PlasmaOrdered By: Gustavo Mcclelland on 07-14-2024 Creatinine [Mass/Vol] 1.12 mg/dL Normal 0.70-1.30 [facility] Comment on above: Performed By: #### C BC, BMP, LIPASE, HEPATIC ####[facility] [id number] [place] [address] [facility] ECG 12 lead ECGon 07-14-2024 ECG 12 lead ECG [facility] [address] [place] [address] [place] [address] Electrocardiograph Report Signed Patient: Hosea Alvarez MR#: [id number] : 1970 Acct:[id number] Age/Sex: 53 / M ADM Date: 07/14/24 Loc: ER Room: Type: [facility] ER Attending Dr: Ordering Provider: Gustavo Mcclelland [...] By Gustavo Mcclelland DO 1752 Normal [facility] Erythrocyte distribution wid th [Ratio] by Automated countOrdered By: Gustavo Mcclelland on 07-14-2024 Erythrocyte distribution width (RBC) [Ratio] 12.9 % Normal 12.0-14.8 [facility] Comment on above: Performed By: #### C BC, BMP, LIPASE, HEPATIC ####[facility] [id number] [place] [id number] [facility] Erythrocytes [#/volume] in B lood by Automated countOrdered By: Gustavo Mcclelland on 07-14-2024 RBC (Bld) [#/Vol] 4.57 10*6/uL Normal 3.90-5.60 [facility] Comment on above: Performed By: #### C BC, BMP, LIPASE, HEPATIC ####[place] [address] [place] [id number] [facility] Glucose [Mass/volume] in Ser um or PlasmaOrdered By: Gustavo Mcclelland on 07-14-2024 Glucose [Mass/Vol] 93 mg/dL Normal 70-100 [facility] Comment on above: ADA recommended refe rence rangeRandom Glucose Reference Range is dependent on time and content of last meal. Glucose of more than 200 mg/dL in a nonstressed, ambulatory subject supports the diagnosis of Diabetes Mellitus. Result Comment: [place] om Glucose Reference Range is dependent on time and content of last meal. Glucose of more than 200 mg/dL in a nonstressed, ambulatory subject supports the diagnosis of Diabetes Mellitus. ADA recommended reference range Performed By: #### C BC, BMP, LIPASE, HEPATIC ####[place] [address] [place] [id number] [facility] Glucose [Mass/volume] in Uri ne by Test stripOrdered By: Gustavo Mcclelland on 07-14-2024 Glucose Test strip (U) [Mass/Vol] Normal mg/dL Normal [facility] Hematocrit [Volume Fraction] of Blood by Automated countOrdered By: Gustavo Mcclelland on 07-14-2024 Hematocrit (Bld) [Volume fraction] 39.2 % Normal 38.8-50.0 [facility] Comment on above: Performed By: #### C BC, BMP, LIPASE, HEPATIC ####[place] [id number] [facility] Hemoglobin Test strip Ql (U) Ordered By: Gustavo Mcclelland on 07-14-2024 Hemoglobin Ql (U) Negative Negative [facility] Hemoglobin [Mass/volume] in BloodOrdered By: Gustavo Mcclelland on 07-14-2024 Hemoglobin (Bld) [Mass/Vol] 13.3 g/dL Normal 13.0-17.0 [facility] Comment on above: Performed By: #### C BC, BMP, LIPASE, HEPATIC ####[place] [id number] [facility] Hepatic Panelon 07-14-2024 Albumin [Mass/Vol] 4.5 g/dL Normal 3.5-5.7 [facility] Comment on above: Performed By: #### C BC, BMP, LIPASE, HEPATIC ####[address] Bilirubin,Indirect 0.3 mg/dL Normal [facility] Comment on above: Performed By: #### C BC, BMP, LIPASE, HEPATIC ####[address] Bilirubin.indirect [Mass/Vol] 0.10 mg/dL Normal 0.03-0.18 [facility] Comment on above: Performed By: #### C BC, BMP, LIPASE, HEPATIC ####[address] Ketones [Presence] in Urine by Test stripOrdered By: Gustavo Mcclelland on 07-14-2024 Ketones Ql (U) Negative Normal Negative [facility] Comment on above: Order Comment: Name Collection Type:: Clean-Voided Midstream Performed By: #### U A ####[address] Leukocyte esterase [Presence ] in Urine by Test stripOrdered By: Gustavo Mcclelland on 07-14-2024 Leukocyte esterase Test strip Ql (U) Negative Normal Negative [facility] Comment on above: Order Comment: Name Collection Type:: Clean-Voided Midstream Performed By: #### U A ####[address] Leukocytes [#/volume] correc sebastián for nucleated erythrocytes in Blood by Automated counOrdered By: Gustavo Mcclelland on 07-14-2024 WBC corrected for nucl RBC Auto (Bld) [#/Vol] 3.9 10*3/uL Low 4.1-10.5 [facility] Leukocytes [#/volume] in Blo od by Automated countOrdered By: Gustavo Mcclelland on 07-14-2024 WBC (Bld) [#/Vol] 3.9 10*3/uL Low 4.1-10.5 [facility] Comment on above: Performed By: #### C BC, BMP, LIPASE, HEPATIC ####[place] [id number] [facility] Lipase [Enzymatic activity/v olume] in Serum or PlasmaOrdered By: Gustavo Mcclelland on 07-14-2024 Lipase [Catalytic activity/Vol] 16.0 U/L Normal 11.0-82.0 [facility] Comment on above: Result Comment: PERF ORMED BY: [facility] [address] [place] [place] [id number] PATHOLOGIST ROTARY FILTER OPERATOR CHER LAGUNA M.D. Performed By: #### C BC, BMP, LIPASE, HEPATIC ####[address] Lymphocytes [#/volume] in Bl ood by Automated countOrdered By: Gustavo Mcclelland on 07-14-2024 Lymphocytes (Bld) [#/Vol] 1.2 10*3/uL Normal 1.00-4.8 [facility] Comment on above: Performed By: #### C BC, BMP, LIPASE, HEPATIC ####[address] Lymphocytes/100 leukocytes i n Blood by Automated countOrdered By: Gustavo Mcclelland on 07-14-2024 Lymphocytes/100 WBC (Bld) 29.8 % Normal . [facility] Comment on above: Performed By: #### C BC, BMP, LIPASE, HEPATIC ####[address] MCH [Entitic mass] by Automa sebastián countOrdered By: Gustavo Mcclelland on 07-14-2024 MCH (RBC) [Entitic mass] 29.0 pg Normal 27.5-35.2 [facility] Comment on above: Performed By: #### C BC, BMP, LIPASE, HEPATIC ####[address] MCHC Auto (RBC) [Mass/Vol]Or dered By: Gustavo Mcclelland on 07-14-2024 MCHC (RBC) [Mass/Vol] 33.9 g/dL 32.5-35.6 [facility] MCV [Entitic volume] by Auto mated countOrdered By: Gustavo Mcclelland on 07-14-2024 MCV (RBC) [Entitic vol] 85.7 fL Normal 83.5-101 [facility] Comment on above: Performed By: #### C BC, BMP, LIPASE, HEPATIC ####[facility] [id number] [address] Monocyte distribution width [Entitic volume] in Blood by AutomatedOrdered By: Gustavo Mcclelland on 07-14-2024 Monocyte distribution width Auto (Bld) [Entitic vol] 19.18 % 0.00-20.00 [facility] Neutrophils [#/volume] in Bl ood by Automated countOrdered By: Gustavo Mcclelland on 07-14-2024 Neutrophils (Bld) [#/Vol] 2.4 10*3/uL Normal 1.8-7.7 [facility] Comment on above: Performed By: #### C BC, BMP, LIPASE, HEPATIC ####[place] [address] [address] Nitrite Test strip Ql (U)Ord ered By: Gustavo Mcclelland on 07-14-2024 Nitrite Ql (U) Negative Negative [facility] No Panel InformationOrdered By: Gustavo Mcclelland on 07-14-2024 Estimated GFR (CKD-EPI) > 60.0 mL/Min [facility] Creatinine Clearance (Chem 83.35 [facility] Nucleated erythrocytes [Pres ence] in Blood by Automated countOrdered By: Gustavo Mcclelland on 07-14-2024 Nucleated RBC Auto Ql (Bld) 0.2 /100{WBC} 0-0.5 [facility] Platelet mean volume [Entiti c volume] in Blood by Automated countOrdered By: Gustavo Mcclelland on 07-14-2024 Platelet mean volume (Bld) [Entitic vol] 9.3 fL Normal 6.6-10.1 [facility] Comment on above: Performed By: #### C BC, BMP, LIPASE, HEPATIC ####[address] Platelets [#/volume] in Bloo d by Automated countOrdered By: Gustavo Mcclelland on 07-14-2024 Platelets (Bld) [#/Vol] 142 10*3/uL Low 150-450 [facility] Comment on above: Performed By: #### C BC, BMP, LIPASE, HEPATIC ####[address] Potassium [Moles/volume] in Serum or PlasmaOrdered By: Gustavo Mcclelland on 07-14-2024 Potassium [Moles/Vol] 3.9 mmol/L Normal 3.5-5.1 [facility] Comment on above: Performed By: #### C BC, BMP, LIPASE, HEPATIC ####[address] Protein Test strip (U) [Mass /Vol]Ordered By: Gustavo Mcclelland on 07-14-2024 Protein (U) [Mass/Vol] Negative Negative [facility] Protein [Mass/volume] in Ser um or PlasmaOrdered By: Gustavo Mcclelland on 07-14-2024 Protein [Mass/Vol] 7.8 g/dL Normal 6.4-8.9 [facility] Comment on above: Performed By: #### C BC, BMP, LIPASE, HEPATIC ####[address] Serum globulin measurement b y calculation (mass/volume)Ordered By: Gustavo Mcclelland on 07-14-2024 Globulin (S) [Mass/Vol] 3.3 g/dL [facility] Comment on above: Performed By: #### C BC, BMP, LIPASE, HEPATIC ####[address] Serum or plasma albumin/glob ulin mass ratioOrdered By: Gustavo Mcclelland on 07-14-2024 Albumin/Globulin [Mass ratio] 1.4 {ratio} [facility] Comment on above: Performed By: #### C BC, BMP, LIPASE, HEPATIC ####[address] Serum or plasma anion gap de terminationOrdered By: Gustavo Mcclelland on 07-14-2024 Anion gap [Moles/Vol] 16.2 mmol/L High 6.0-15.0 [facility] Comment on above: Performed By: #### C BC, BMP, LIPASE, HEPATIC ####[address] Serum or plasma non-glucuron idated bilirubin measurement (mass/volume)Ordered By: Gustavo Mcclelland on 07-14-2024 Bilirubin.indirect [Mass/Vol] 0.3 mg/dL [facility] Sodium [Moles/volume] in Ser um or PlasmaOrdered By: Gustavo Mcclelland on 07-14-2024 Sodium [Moles/Vol] 136 mmol/L Normal 136-145 [facility] Comment on above: Performed By: #### C BC, BMP, LIPASE, HEPATIC ####[address] Specific gravity Test strip (U) [Rel density]Ordered By: Gustavo Mcclelland on 07-14-2024 Specific gravity (U) [Rel density] 1.004 1.001-1.030 [facility] Urea nitrogen [Mass/volume] in Serum or PlasmaOrdered By: Gustavo Mcclelland on 07-14-2024 Urea nitrogen [Mass/Vol] 19 mg/dL Normal 7-25 [facility] Comment on above: Performed By: #### C BC, BMP, LIPASE, HEPATIC ####[place] [id number] [facility] Urinalysison 07-14-2024 Bilirubin,Urine Negative Normal Negative [facility] Comment on above: Order Comment: Name Collection Type:: Clean-Voided Midstream Performed By: #### U A ####[place] [id number] [facility] Glucose Ql (U) Normal Normal Normal [facility] Comment on above: Order Comment: Name Collection Type:: Clean-Voided Midstream Performed By: #### U A ####[place] [id number] [facility] Nitrite,Urine Negative Normal Negative [facility] Comment on above: Order Comment: Name Collection Type:: Clean-Voided Midstream Performed By: #### U A ####[address] [address] [facility] Occult Blood,Urine Negative Normal Negative [facility] Comment on above: Order Comment: Name Collection Type:: Clean-Voided Midstream Result Comment: PERF ORMED BY: [facility] [address] [address] PATHOLOGIST ROTARY FILTER OPERATOR CHER LAGUNA M.D. Performed By: #### U A ####[address] [address] [facility] Protein,Urine Negative Normal Negative [facility] Comment on above: Order Comment: Name Collection Type:: Clean-Voided Midstream Performed By: #### U A ####[address] [address] [facility] Specificy [place],Urine 1.004 Normal 1.001-1.030 [facility] Comment on above: Order Comment: Name Collection Type:: Clean-Voided Midstream Performed By: #### U A ####[address] [address] [facility] Urobilinogen,Urine Normal Normal Normal [facility] Comment on above: Order Comment: Name Collection Type:: Clean-Voided Midstream Performed By: #### U A ####[address] [address] [facility] Urine appearanceOrdered By: Gustavo Mcclelland on 07-14-2024 Appearance (U) Clear Normal Clear [facility] Comment on above: Order Comment: Name Collection Type:: Clean-Voided Midstream Performed By: #### U A ####[address] [address] [facility] Urobilinogen Test strip (U) [Mass/Vol]Ordered By: Gustavo Mcclelland on 07-14-2024 Urobilinogen (U) [Mass/Vol] Normal mg/dL Normal [facility] pH of Urine by Test stripOrd ered By: Gustavo Mcclelland on 07-14-2024 pH (U) 5.0 [pH] Normal 5.0-9.0 [facility] Comment on above: Order Comment: Name Collection Type:: Clean-Voided Midstream Performed By: #### U A ####[facility] [address] [place] [address] [facility] Interdisciplinary Note - Soc ial Workeron 07-13-2024 Interdisciplinary Note - Business Machine Mechanic Interdisciplinary Note - Business Machine Mechanic This SW met with HIM this morning and requested the medical records be faxed to Mr. Cristinaa Jeromy at the [facility] Warehouse Trainer's office. Normal [facility] ED Note-Physicianon 07-12-20 ED Note-Physician ED [...] and Complexity of Problems Differential Diagnosis: [] [facility] Data External documents reviewed: [] My [...] Samayoa In 3 days 07/14/2024 EDT [address] [place] [address]- [phone] Business (1) Additional Instructions: Follow-up with Dr. Samayoa for Holter monitor placement and Dr. Valencia as discussed. Return to the emergency room if your palpitation recurs, headache gets worse or any new symptoms. Yang VALENCIA In 3 days [address] [place] [address]- Business (1) Additional Instructions: Patient Education Head [...] tab(s), Oral, (more content not included)... Normal [facility] Comment on above: Result Comment: Elec tronically Signed By: Capo Monzon M.D.\.br\Date and Time Signed: 07/12/24 08:14 EDT BMPOrdered By: SYSTEM SYSTEM on 07-11-2024 Anion gap [Moles/Vol] 10 mmol/L Normal 6-16 Rem isol Chem Comment on above: Performed By: #### 2 [id number] #### [facility] [address] [place] [address] Calcium [Mass/Vol] 8.9 mg/dL Normal 8.9-11.1 [facility] Comment on above: Performed By: #### 2 [id number] #### [facility] [address] [place] [address] Chloride [Moles/Vol] 103 mmol/L Normal 101-111 [facility] Comment on above: Performed By: #### 2 [id number] #### [facility] [address] [place] [address] CO2 [Moles/Vol] 28 mmol/L Normal 21-31 [facility] C hem Comment on above: Performed By: #### 2 [id number] #### [facility] [address] [place] [address] Creatinine [Mass/Vol] 1.2 mg/dL Normal 0.5-1.3 Rem isol Chem Comment on above: Performed By: #### 2 [id number] #### [facility] [address] [place] [address] Glucose [Mass/Vol] 99 mg/dL Normal 55-199 [facility] Comment on above: Performed By: #### 2 [id number] #### [facility] [address] [place] [address] Potassium [Moles/Vol] 4.8 mmol/L Normal 3.5-5.3 Rem isol Chem Comment on above: Performed By: #### 2 [id number] #### [facility] [address] [place] [address] Sodium [Moles/Vol] 136 mmol/L Normal 135-145 [facility] Comment on above: Performed By: #### 2 [id number] #### [facility] [address] [place] [address] Urea nitrogen [Mass/Vol] 15 mg/dL Normal 5-21 [facility] Comment on above: Performed By: #### 2 [id number] #### [facility] [address] [place] [address] BMPon 07-11-2024 Urea nitrogen/Creatinine [Mass ratio] 12 No Units Normal 10-[address] [facility] Comment on above: Performed By: #### 2 [id number] #### [facility] [address] [place] [address] BNPOrdered By: Randi barron on 07-11-2024 Natriuretic peptide B (Bld) [Mass/Vol] 22 pg/mL Normal 5-80 [facility] Comment on above: Performed By: #### 1 [id number] #### [facility] [address] [place] [address] CBC w/ Auto DiffOrdered By: SYSTEM SYSTEM on 07-11-2024 Basophils/100 WBC (Bld) 0.3 % Normal 0.0-2.0 [facility] Comment on above: Performed By: #### 2 [id number] #### [facility] [address] [place] [address] Basophils/Leukocytes Auto (Bld) [Pure # fraction] 0.0 E9/L Normal 0.0-0.2 [facility] Comment on above: Performed By: #### 2 [id number] #### [facility] [address] [place] [address] Eosinophils (Bld) [#/Vol] 0.1 E9/L Normal 0.0-0.5 [facility] Comment on above: Performed By: #### 2 [id number] #### [facility] [address] [place] [address] Eosinophils/100 WBC (Bld) 2.1 % Normal 0.0-8.0 [facility] Comment on above: Performed By: #### 2 [id number] #### [facility] [address] [place] [address] Erythrocyte distribution width (RBC) [Ratio] 13.0 % Normal 10.9-14.2 [facility] Comment on above: Performed By: #### 2 [id number] #### [facility] [address] [place] [address] Hematocrit (Bld) [Volume fraction] 39.0 % Normal 37.7-49.0 [facility] Comment on above: Performed By: #### 2 [id number] #### [facility] [address] [place] [address] 71537 Hemoglobin (Bld) [Mass/Vol] 13.1 g/dL Low 13.5-17.5 Remisol Heme Comment on above: Performed By: #### 2 [id number] #### [facility] [address] [place] [address] 15875 Lymphocytes (Bld) [#/Vol] 0.8 E9/L Low 1.0-4.0 Remisol Heme Comment on above: Performed By: #### 2 [id number] #### [facility] [address] [place] [address] Lymphocytes/100 WBC (Bld) 23.3 % Normal 14.0-50.0 Remisol Heme Comment on above: Performed By: #### 2 [id number] #### [facility] [address] [place] [address] 84888 MCH (RBC) [Entitic mass] 29.2 pg Normal 27.0-34.0 Remisol Heme Comment on above: Performed By: #### 2 [id number] #### [facility] [address] [place] [address] 84298 MCHC (RBC) [Mass/Vol] 33.7 g/dL Normal 31.4-36.0 Rem isol Heme Comment on above: Performed By: #### 2 [id number] #### [facility] [address] [place] [address] 35818 MCV (RBC) [Entitic vol] 86.8 fL Normal 80.0-100.0 Remisol Heme Comment on above: Performed By: #### 2 [id number] #### [facility] [address] [place] [address] 84822 Monocytes (Bld) [#/Vol] 0.3 E9/L Normal 0.2-1.0 Remisol Heme Comment on above: Performed By: #### 2 [id number] #### [facility] [address] [place] [address] 13887 Neutrophils (Bld) [#/Vol] 2.4 E9/L Normal 2.0-7.5 Remisol Heme Comment on above: Performed By: #### 2 [id number] #### [facility] [address] [place] [address] 18150 Neutrophils/100 WBC (Bld) 67.0 % Normal 36.0-75.0 Remisol Heme Comment on above: Performed By: #### 2 [id number] #### [facility] [address] [place] [address] 41200 Platelet mean volume (Bld) [Entitic vol] 9.2 fL Normal 6.4-10.8 Remisol Heme Comment on above: Performed By: #### 2 [id number] #### [facility] [address] [place] [address] Platelets (Bld) [#/Vol] 131.0 E9/L Low 150.0-500.0 Remisol Heme Comment on above: Performed By: #### 2 [id number] #### [facility] [address] [place] [address] RBC (Bld) [#/Vol] 4.5 E12/L Normal 4.3-5.9 Remisol Heme Comment on above: Performed By: #### 2 [id number] #### [facility] [address] [place] [address] WBC corrected for nucl RBC Auto (Bld) [#/Vol] 3.6 E9/L Low 4.0-11.0 Remisol Heme Comment on above: Performed By: #### 2 [id number] #### [facility] [address] [place] [address] CHEMISTRYOrdered By: SYSTEM SYSTEM on 07-11-2024 Troponin [...] Sensitivity Troponin I Instructions For Use, Farhana [place], April 2018) Albumin/Globulin [Mass ratio] 1.5 {ratio} [...] 31.9 s Normal 25.1 - 36.5 second(s) [facility] Comment on above: Interpretive Data: [...] the same coagulation reagent and instrumentation as [facility]. Currently there are no coagulation studies available worldwide for children to 14 days, and no normal ranges. Heparin therapeutic range (represented by Anti-Factor Xa activity of 0.2 - 0.4 U/mL) corresponds to PTT of 56.6 - 109.0 sec. PT Coag (PPP) [Time] 11.0 s Normal 9.4 - 1 2.5 second(s) [facility] Comment on above: Interpretive Data: [...] the same coagulation reagent and instrumentation as [facility]. Currently there are no coagulation studies available [...] as reasonably achievable. Report Ordering Provider: Capo oMnzon FINAL REPORT Dictated: 07/11/2024 12:35 pm Max Atkins MD Signed (Electronic Signature): 07/11/2024 12:35 pm Signed by: Max Atkins MD Transcribed by: LINDEN Technologist: RODY Lopez [facility] ED Clinical Summaryon 2023 ED Clinical Summary ED Clinical Summary [place] [address] ED Clinical Summary Person Information Name: HOSEA ALVAREZ/[facility] Age: 53 Years : 1970 Sex: Male Language: Scottish PCP: Yang VALENCIA MD Marital Status: Single [...] 07/11/2024 14:26:07 07/11/2024 14:26:07 ADDRESS: RETURN MAIL [address] [place] [address] PHYS DOC NOTES: MEDICAL INFORMATION: Prescriptions Given: [...] Follow up: With: Address: When: Rao Samayoa [address] [place], [place] [id number] [phone] [facility] (1) In 3 days 07/14/2024 Comments: Follow-up with Dr. Samayoa for Holter monitor placement and Dr. Valencia as discussed. Return to the emergency room if your palpitation recurs, headache gets worse or any new symptoms. With: Address: When: Yang VALENCIA [address] [place] [address] Business (1) In 3 days DIAGNOSIS: 1:Palpitations; 2:Closed head injury Normal [facility] ED Patient Summaryon 024 ED Patient Summary ED Patient Summary [address] [address] Patient Discharge Instructions Person Information Name: HOSEA ALVAREZ Age: 53 Years Arrival Date: 07/11/2024 10:43:39 Discharge Diagnosis: 1:Palpitations; 2:Closed head injury Primary Care Physician: Yang VALENCIA MD Provider Information Primary Provider: Capo Monzon M.D. Advanced [facility] Second:None The exam and treatment you received in the Emergency Department were for an urgent problem and are not intended as complete care. It is important that you follow up with a doctor, nurse practitioner, or physician?s professional nursing assistant for ongoing care. If your symptoms [...] Follow-up Instructions: With: Address: When: Rao Samayoa [address] [place] [address] [phone] [facility] (1) In 3 days 07/14/2024 Comments: Follow-up with Dr. Samayoa for Holter monitor placement and Dr. Valencia as discussed. Return to the emergency room if your palpitation recurs, headache gets worse or any new symptoms. With: Address: When: Yang VALENCIA [address] [place], [place] [phone] Business (1) In 3 days In the event that this physician does not participate in your insurance network, please consult with your insurance company to find a nearby participating provider. Patient Education Materials: Head Injury, Adult; Palpitations A MESSAGE TO ALL PATIENTS REGARDING OPIOIDS PRESCRIPTION OPIOIDS: WHAT YOU NEED TO KNOW Prescription opioids can be used to help relieve rzvgsghr-qq-dpsbtd pain and are often prescribed following a [...] from the (more content not included)... Normal [facility] Ethanolon 07-11-2024 Ethanol Lvl <10 Normal <=[address] [facility] Comment on above: Performed By: #### 2 [id number] #### [facility] [address] [place] [id number] HEMATOLOGYOrdered By: SYSTEM SYSTEM on 07-11-2024 Monocytes/100 WBC (Bld) 7.3 % Normal 4.0 - 14.0 % Remisol Heme Hep Func PanelOrdered By: [employer] SYSTEM on 07-11-2024 Albumin [Mass/Vol] 4.1 g/dL Normal 3.3-5.0 Remiso l Chem Comment on above: Performed By: #### 2 [id number] #### [facility] [address] [place] [address] Bilirubin [Mass/Vol] 0.5 mg/dL Normal 0.0-1.1 [facility] Comment on above: Performed By: #### 2 [id number] #### [facility] [address] [place] [address] Bilirubin.direct [Mass/Vol] 0.1 mg/dL Normal 0.0-0.4 Remisol Chem Comment on above: Performed By: #### 2 [id number] #### [facility] [address] [place] [address] Bilirubin.indirect [Mass or moles/Vol] 0.4 mg/dL Normal 0.1-0.9 Remisol Chem Comment on above: Performed By: #### 2 [id number] #### [facility] [address] [place] [address] Globulin (S) [Mass/Vol] 2.8 g/dL Normal 1.4-4.0 Remisol Chem Comment on above: Performed By: #### 2 [id number] #### [facility] [address] [place] [address] Protein [Mass/Vol] 6.9 g/dL Normal 6.0-7.8 Remiso l Chem Comment on above: Performed By: #### 2 [id number] #### [facility] [address] [place] [address] Hep Func Panelon 07-11-2024 Albumin/Globulin (S) [Mass conc ratio] 1.5 Normal 1.1-2.[address] [facility] Comment on above: Performed By: #### 2 [id number] #### [facility] [address] [place] [address] ALP [Catalytic activity/Vol] 57 Int._Unit/L Normal 21-[address] [facility] Comment on above: Performed By: #### 2 [id number] #### [facility] [address] [place] [address] ALT No additional P-5'-P [Catalytic activity/Vol] 20 Int._Unit/L Normal 6-[address] [facility] Comment on above: Performed By: #### 2 [id number] #### [facility] [address] [place] [address] AST [Catalytic activity/Vol] 17 Int._Unit/L Normal 5-[address] [facility] Comment on above: Performed By: #### 2 [id number] #### [facility] [address] [place] [address] MagnesiumOrdered By: SYSTEM SYSTEM on 07-11-2024 Magnesium [Mass/Vol] 1.9 mg/dL Normal 1.3-2.4 [facility] Comment on above: Performed By: #### 2 [id number] #### [facility] [address] [place] [address] No Panel InformationOrdered By: SYSTEM SYSTEM on [...] Coag (PPP) [Time] 31.9 second(s) Normal 25.1-36.[address] [facility] Comment on above: Result Comment: Para [...] the same coagulation reagent and instrumentation as [facility]. Currently there are no coagulation studies available worldwide for children to 14 days, and no normal ranges. Heparin therapeutic range (represented by Anti-Factor Xa activity of 0.2 - 0.4 U/mL) corresponds to PTT of 56.6 - 109.0 sec. Performed By: #### 1 [id number] #### [facility] [address] [place] [address] PT Coag (PPP) [Time] 11.0 second(s) Normal 9.4-12.[address] [facility] Comment on above: Result Comment: 15 [...] the same coagulation reagent and instrumentation as [facility]. Currently there are no coagulation studies available worldwide for children to 14 days, and no normal ranges. Performed By: #### 1 [id number] #### [facility] [address] [place] [address] PT & PTTOrdered By: Sakina Blackwood on 07-11-2024 INR Coag (PPP) [Relative time] 0.98 {INR} Invalid Interpretation Code [facility] Coag Comment on above: Interpretive Data: [...] 3.0 ? 4.5 Performed By: #### 1 [id number] #### [facility] [address] [place] [address] Pre-Arrival Noteon Pre-Arrival Note Pre-Arrival Note Pre-Arrival Summary Name: , REJI Current Date: 07/11/2024 10:49:55 EDT Gender: Date of : Age: 53 Pre-Arrival Type: EMS ETA: 07/11/2024 11:07:00 EDT Primary Care Physician: Presenting Problem: hyeadache/heart racing Pre-Arrival User: Lei Phillip RN Referring Source: Location: [place] Completion Date/Time: 07/11/2024 10:37:00 [facility] Emergency Department Pre-Hospital Report Form Vital Signs: Pre-Hospital Report: Treatment in Route: Response to Treatment: Misc. Issues: Normal [facility] TSH With T4fr ReflexOrdered By: SYSTEM SYSTEM on 07-11-2024 TSH Qn 0.93 m[IU]/L Normal 0.34-5.60 Remisol Chem Comment on above: Performed By: #### 1 [id number] #### [facility] [address] [place] [address] Troponin 0 Hr.on 07-11-2024 Troponin HS <2.30 Low 15.90-38.[address] [facility] Comment on above: Result Comment: The 95% CI (Confidence Interval) PPV (Positive Predictive Value) for myocardial infarction in females is 38 pg/mL, in males 51 pg/mL. The results should be used in conjunction with clinical conditions of myocardial infarction. (Access High Sensitivity Troponin I Instructions For Use, [employer], April 2018) Performed By: #### 1 [id number] #### [facility] [address] [place] [address] Troponin 1 Hr.on 07-11-2024 Troponin HS <2.30 Low 15.90-38.[address] [facility] Comment on above: Order Comment: due @ 1200 Result Comment: The 95% CI (Confidence Interval) PPV (Positive Predictive Value) for myocardial infarction in females is 38 pg/mL, in males 51 pg/mL. The results should be used in conjunction with clinical conditions of myocardial infarction. (Access High Sensitivity Troponin I Instructions For Use, [employer], April 2018) Performed By: #### 1 [id number] #### [facility] [address] [place] [address] Troponin 3 Hr.on 07-11-2024 Troponin HS 3.10 pg/mL Low 15.90-38.[address] [facility] Comment on above: Result Comment: The 95% CI (Confidence Interval) PPV (Positive Predictive Value) for myocardial infarction in females is 38 pg/mL, in males 51 pg/mL. The results should be used in conjunction with clinical conditions of myocardial infarction. (Access High Sensitivity Troponin I Instructions For Use, Farhana [place], April 2018) Performed By: #### 1 [id number] #### [facility] [address] [place] [address] XR Chest Single Viewon 07-11 XR Chest [...] mGy = . DAP = . Normal [facility] eGFROrdered By: SYSTEM vBrand on 07-11-2024 eGFR 72 mL/min/1.73 m2 Normal >=59 Remisol Chem Comment on above: Performed By: #### 1 [id number] #### [facility] [address] [place] [address] ED Note-Physicianon 07-10-20 ED Note-Physician ED Note-Physician [...] 07/12/2024 EDT [address], [address] [place] [phone] Business (1) Additional Instructions: follow with GI for your abdominal pain Yang ERIK In 3 [facility] (more content not included)... Normal [facility] Comment on above: Result Comment: Elec tronically Signed By: Sharon Valladares PA-C\.br\Date and Time Signed: 07/09/24 22:37 EDT\.br\Electronically Co-Signed By: Capo Monzon M.D.\.br\Date and Time Co-Signed: 07/10/24 07:10 EDT Interdisciplinary Note - Soc paige Douglass 07-10-2024 Interdisciplinary Note - Business Machine Mechanic Interdisciplinary Note - Business Machine Mechanic This SW met with patient today after he arrived at [facility] as a walk-in demanding he needed to [...] with his medical records sent to his Warehouse Trainer, . Cheryle Pinzon, from [facility] as there is a hearing on Saturday10/13/23 at 0900 that he is trying to get adjournment on. Patient very anxious about these needs; displaying significant flight of ideas. DAVID called [facility] and was able to schedule an appointment with Dr. Edwards for Saturday07/15/24 at 1030; patient needs to arrive at 1015 and take his photo ID, [place] Medicaid card, and standing colonoscopy orders he states he has from a physician in [place]. He was made aware that if a colonoscopy is needed, this usually is scheduled within a couple weeks of the initial appointment. DAVID then assisted him with calling [facility] [employer] office. Contact information for both [...] did locate it in his belongings. Normal [facility] ED Clinical Summaryon 2023 ED Clinical Summary ED Clinical Summary [place] [id number] ED Clinical Summary Person Information Name: HOSEA ALVAREZ/[facility] Age: 53 Years : 1970 Sex: Male Language: Scottish PCP: Yang VALENCIA MD Marital Status: Single Phone: [phone] Visit Id: Visit Reason: Abdominal pain; Chest [...] 20:44:47 07/09/2024 20:44:47 ADDRESS: RETURN MAIL [address] [place] [address] PHYS DOC NOTES: MEDICAL INFORMATION: Prescriptions Given: [...] Follow up: With: Address: When: Gisell Grady [address] [place], [place] [phone] Business (1) In 3 days 07/12/2024 Comments: follow with GI for your abdominal pain With: Address: When: Yang VALENCIA [address] [place], [place] [phone] Business (1) In 3 days DIAGNOSIS: 1:Asymptomatic hypertension Normal [facility] ED Patient Summaryon 024 ED Patient Summary ED Patient Summary [address] [address] Patient Discharge Instructions Person Information Name: HOSEA ALVAREZ Age: 53 Years Arrival Date: 07/09/2024 18:17:44 Discharge Diagnosis: 1:Asymptomatic hypertension Primary Care Physician: Yang VALENCIA MD Provider Information Primary Provider: Pasquale Nuñez DO Advanced [facility] Second:Sharon Valladares PA-C The exam and treatment you received in the Emergency Department were for an urgent problem and are not intended as complete care. It is important that you follow up with a doctor, nurse practitioner, or physician?s professional nursing assistant for ongoing care. If your symptoms [...] With: Address: When: Gisell Her[address], [address] [place] [phone] Business (1) In 3 days 07/12/2024 Comments: follow with GI for your abdominal pain With: Address: When: Yang VALENCIA [address] [place] [phone] Business (1) In 3 days In the event that this physician does not participate in your insurance network, please consult with your insurance company to find a nearby participating provider. Patient Education Materials: Hypertension, Adult A MESSAGE TO ALL PATIENTS REGARDING OPIOIDS PRESCRIPTION OPIOIDS: WHAT YOU NEED TO KNOW Prescription opioids can be used to help relieve oyqdrkur-ux-gggnvb pain and are often prescribed following a [...] opioids a (more content not included)... Normal [facility] Basic Metabolic Profon 07-04 Anion gap [Moles/Vol] 12 mmol/L Normal 9-17 [facility] Comment on above: Performed By: #### C DP, TROPI, BMP, DIME #### [facility] [address] [place] [address] Auto Bumper Straightener: Aneudy Webster MD Calcium [Mass/Vol] 9.0 mg/dL Normal 8.6-10.4 [facility] Comment on above: Performed By: #### C DP, TROPI, BMP, DIME #### [facility] [address] [place] [address] Auto Bumper Straightener: Aneudy Webster MD Chloride [Moles/Vol] 100 mmol/L Normal 98-107 [facility] Comment on above: Performed By: #### C DP, TROPI, BMP, DIME #### [facility] [address] [place], [place] [id number] Auto Bumper Straightener: Aneudy Webster MD CO2 [Moles/Vol] 26 mmol/L Normal 20-31 [facility] Comment on above: Performed By: #### C DP, TROPI, BMP, DIME #### [facility] [address] [place], [place] [id number] Auto Bumper Straightener: Aneudy Webster MD Creatinine [Mass/Vol] 1.3 mg/dL High 0.7-1.2 [facility] Comment on above: Performed By: #### C DP, TROPI, BMP, DIME #### [facility] [address] [place] [address] Auto Bumper Straightener: Aneudy Webster MD GFR/1.73 sq M.predicted among non-blacks MDRD (S/P/Bld) [Vol rate/Area] 66 mL/min/{1.73_m2} Normal >60 [facility] Comment on above: Result Comment: These [...] #### C DP, TROPI, BMP, DIME #### [facility] [address] [place] [address] Auto Bumper Straightener: Aneudy Webster MD Glucose [Mass/Vol] 93 mg/dL Normal 70-99 [facility] Comment on above: Performed By: #### C DP, TROPI, BMP, DIME #### [facility] [address] [place] [address] Auto Bumper Straightener: Aneudy Webster MD Potassium [Moles/Vol] 4.0 mmol/L Normal 3.7-5.3 [facility] Comment on above: Performed By: #### C DP, TROPI, BMP, DIME #### [facility] [address] [place] [address] Auto Bumper Straightener: Aneudy Webster MD Sodium [Moles/Vol] 138 mmol/L Normal 135-144 [facility] Comment on above: Performed By: #### C DP, TROPI, BMP, DIME #### [facility] [address] [place] [id number] Auto Bumper Straightener: Aneudy Webster MD Urea nitrogen [Mass/Vol] 21 mg/dL High 6-20 [facility] Comment on above: Performed By: #### C DP, TROPI, BMP, DIME #### [facility] [address] [place] [address] Auto Bumper Straightener: Aneudy Webster MD CBC with Diffon 07-04-2024 Abs. Basophil 0.01 k/uL Normal 0.00-0.20 [facility] Comment on above: Performed By: #### C DP, TROPI, BMP, DIME #### [facility] [address] [place] [id number] Auto Bumper Straightener: Aneudy Webster MD Abs.Imm.Granulocyte 0.01 k/uL Normal 0.00-0.30 [facility] Comment on above: Performed By: #### C DP, TROPI, BMP, DIME #### [facility] [address] [place] [address] Auto Bumper Straightener: Aneudy Webster MD Abs.Neutrophil (Seg) 2.31 k/uL Normal 2.1-6.5 [facility] Comment on above: Performed By: #### C DP, TROPI, BMP, DIME #### [facility] [address] [place], [place] [phone] Auto Bumper Straightener: Aneudy Webster MD Basophils/100 WBC (Bld) 0 % Normal 0-2 [facility] Comment on above: Performed By: #### C DP, TROPI, BMP, DIME #### [facility] [address] [place] [id number] Auto Bumper Straightener: Aneudy Webster MD Eosinophils (Bld) [#/Vol] 0.10 10*3/uL Normal 0.00-0.40 [facility] Comment on above: Performed By: #### C DP, TROPI, BMP, DIME #### [facility] [address] [place] [address] Auto Bumper Straightener: Aneudy Webster MD Eosinophils/100 WBC (Bld) 3 % Normal 0-5 [facility] Comment on above: Performed By: #### C DP, TROPI, BMP, DIME #### [facility] [address] [place] [id number] Auto Bumper Straightener: Aneudy Webster MD Erythrocyte distribution width (RBC) [Ratio] 11.9 % Low 12.1-15.2 [facility] Comment on above: Performed By: #### C DP, TROPI, BMP, DIME #### [facility] [address] [place] [id number] Auto Bumper Straightener: Aneudy Webster MD Hematocrit (Bld) [Volume fraction] 41.3 % Normal 41.0-53.0 [facility] Comment on above: Performed By: #### C DP, TROPI, BMP, DIME #### [facility] [address] [place] [id number] Auto Bumper Straightener: Aneudy Webster MD Hemoglobin (Bld) [Mass/Vol] 13.7 g/dL Normal 13.5-17.5 [facility] Comment on above: Performed By: #### C DP, TROPI, BMP, DIME #### [facility] [address] [place] [address] Auto Bumper Straightener: Aneudy Webster MD Immature granulocytes/100 WBC (Bld) 0 % Normal 0-5 [facility] Comment on above: Performed By: #### C DP, TROPI, BMP, DIME #### [facility] [address] [place] [id number] Auto Bumper Straightener: Aneudy Webster MD Lymphocytes (Bld) [#/Vol] 1.08 10*3/uL Normal 1.00-4.80 [facility] Comment on above: Performed By: #### C DP, TROPI, BMP, DIME #### [facility] [address] [place] [address] Auto Bumper Straightener: Aneudy Webster MD Lymphocytes/100 WBC (Bld) 28 % Normal 13-44 [facility] Comment on above: Performed By: #### C DP, TROPI, BMP, DIME #### [facility] [address] [place] [address] Auto Bumper Straightener: Aneudy Webster MD MCH (RBC) [Entitic mass] 28.9 pg Normal 26.0-34.0 [facility] Comment on above: Performed By: #### C DP, TROPI, BMP, DIME #### [facility] [address] [place] [address] Auto Bumper Straightener: Aneudy Webster MD MCHC (RBC) [Mass/Vol] 33.2 g/dL Normal 31.0-37.0 [facility] Comment on above: Performed By: #### C DP, TROPI, BMP, DIME #### [facility] [address] [place] [id number] Auto Bumper Straightener: Aneudy Webster MD MCV (RBC) [Entitic vol] 87.1 fL Normal 80.0-100.0 [facility] Comment on above: Performed By: #### C DP, TROPI, BMP, DIME #### [facility] [address] [place] [address] ([address]) Auto Bumper Straightener: Aneudy Webster MD Monocytes (Bld) [#/Vol] 0.35 10*3/uL Normal 0.00-1.00 [facility] Comment on above: Performed By: #### C DP, TROPI, BMP, DIME #### [facility] [address] [phone] Auto Bumper Straightener: Aneudy Webster MD Monocytes/100 WBC (Bld) 9 % Normal 5-9 [facility] Comment on above: Performed By: #### C DP, TROPI, BMP, DIME #### [facility] [address] [place] [address] Auto Bumper Straightener: Aneudy Webster MD Neutrophil (Seg) 60 % Normal 39-75 [facility] Comment on above: Performed By: #### C DP, TROPI, BMP, DIME #### [facility] [address] [place] [address] [phone] Auto Bumper Straightener: Aneudy Webster MD Platelet mean volume (Bld) [Entitic vol] 10.9 fL Normal 6.0-12.0 [facility] Comment on above: Performed By: #### C DP, TROPI, BMP, DIME #### [facility] [address] [place] [address] [phone] Auto Bumper Straightener: Aneudy Webster MD Platelets (Bld) [#/Vol] 144 10*3/uL Normal 140-450 [facility] Comment on above: Performed By: #### C DP, TROPI, BMP, DIME #### [facility] [address] [place], [place] [phone] Auto Bumper Straightener: Aneudy Webster MD RBC (Bld) [#/Vol] 4.74 10*6/uL Normal 4.50-5.90 [facility] Comment on above: Performed By: #### C DP, TROPI, BMP, DIME #### [facility] [address] [place] [address] Auto Bumper Straightener: Aneudy Webster MD WBC (Bld) [#/Vol] 3.9 10*3/uL Normal 3.5-11.0 [facility] Comment on above: Performed By: #### C DP, TROPI, BMP, DIME #### [facility] [address] [place] [address] Auto Bumper Straightener: Aneudy Webster MD D-Dimer Teston 07-04-2024 D-Dimer Test 1.45 ug/mL FEU High 0.00-0.59 [facility] Comment on above: [...] #### C DP, TROPI, BMP, DIME #### [facility] [address] [place] [address] Auto Bumper Straightener: Aneudy Webster MD Troponinon 07-04-2024 Troponin, High Sens <6 Normal 0-22 [facility] Comment on above: Result Comment: High Sensitivity Troponin values cannot be compared with other Troponin methodologies. Performed By: #### C DP, TROPI, BMP, DIME #### [facility] [address] [place] [address] Auto Bumper Straightener: Aneudy Webster MD XR CHEST PORTABLEon 07-04-20 [...] Lily Canela MD 07/04/24 Final result Normal [facility] BASIC METABOLIC PANELon 09- Anion gap [Moles/Vol] 8 mmol/L Low 10 - 20 [facility] Comment on above: Performed By: #### B MP #### [facility] [address] [place] [address] Calcium [Mass/Vol] 9.1 mg/dL Normal 8.6 - 10.3 [facility] Comment on above: Performed By: #### B MP #### [facility] [address] [place] [address] Chloride [Moles/Vol] 101 mmol/L Normal 98 - 107 [facility] Comment on above: Performed By: #### B MP #### [facility] [address] [place] [address] Creatinine [Mass/Vol] 0.98 mg/dL Normal 0.50 - 1.30 [facility] Comment on above: Performed By: #### B MP #### [facility] [address] [place] [address] eGFR MALE >90 Normal >90 [facility] Comment on above: Result Comment: CALC ULATIONS OF ESTIMATED GFR ARE PERFORMED USING THE 2020 CKD-EPI STUDY REFIT EQUATION WITHOUT THE RACE VARIABLE FOR THE IDMS-TRACEABLE CREATININE METHODS. https://jasn.asnjournals.org/content///ASN.584168 0280 Performed By: #### B MP #### [facility] [address] [place] [address] Glucose [Mass/Vol] 101 mg/dL High 74 - 99 [facility] Comment on above: Performed By: #### B MP #### [facility] [address] [place] [address] HCO3 (Bld) [Moles/Vol] 31 mmol/L Normal 21 - 32 [facility] Comment on above: Performed By: #### B MP #### [facility] [address] [place] [address] Potassium [Moles/Vol] 4.1 mmol/L Normal 3.5 - 5.3 [facility] Comment on above: Performed By: #### B MP #### [facility] [address] [place] [address] Sodium [Moles/Vol] 136 mmol/L Normal 136 - 145 [facility] Comment on above: Performed By: #### B MP #### [facility] [address] [place] [address] Urea nitrogen [Mass/Vol] 15 mg/dL Normal 6 - 23 [facility] Comment on above: Performed By: #### B MP #### [facility] [address] [place] [address] CBC AND DIFFERENTIALon 06-07 % AUTOMATED IMMATURE GRAN 0.3 % Normal 0.0 - 0.9 [facility] Comment on above: Result Comment: Kath ture Granulocyte Count (IG) includes promyelocytes, myelocytes and metamyelocytes but does not include bands. Percent differential counts (%) should be interpreted in the context of the absolute cell counts (cells/L). Performed By: #### C BCDF #### [facility] [address] [place] [address] Basophils (Bld) [#/Vol] 0.02 10*3/uL Normal 0.00 - 0.10 [facility] Comment on above: Performed By: #### C BCDF #### [facility] [address] [place] [address] Basophils/100 WBC (Bld) 0.6 % Normal 0.0 - 2.0 [facility] Comment on above: Performed By: #### C BCDF #### [facility] [address] [place] [address] Eosinophils (Bld) [#/Vol] 0.08 10*3/uL Normal 0.00 - 0.70 [facility] Comment on above: Performed By: #### C BCDF #### [facility] [address] [place] [address] Eosinophils/100 WBC (Bld) 2.3 % Normal 0.0 - 6.0 [facility] Comment on above: Performed By: #### C BCDF #### [address] [address] Erythrocyte distribution width (RBC) [Ratio] 12.6 % Normal 11.5 - 14.5 [facility] Comment on above: Performed By: #### C BCDF #### [address] [address] Hematocrit (Bld) [Volume fraction] 41.3 % Normal 41.0 - 52.0 [facility] Comment on above: Performed By: #### C BCDF #### [address] [address] Hemoglobin (Bld) [Mass/Vol] 13.8 g/dL Normal 13.5 - 17.5 [facility] Comment on above: Performed By: #### C BCDF #### [address] [address] Lymphocytes (Bld) [#/Vol] 0.88 10*3/uL Low 1.20 - 4.80 [facility] Comment on above: Performed By: #### C BCDF #### [address] [address] Lymphocytes/100 WBC (Bld) 25.6 % Normal 13.0 - 44.0 [facility] Comment on above: Performed By: #### C BCDF #### [address] [address] MCHC (RBC) [Mass/Vol] 33.4 g/dL Normal 32.0 - 36.0 [facility] Comment on above: Performed By: #### C BCDF #### [facility] [address] [place] [address] MCV (RBC) [Entitic vol] 89 fL Normal 80 - 100 [facility] Comment on above: Performed By: #### C BCDF #### [facility] [address] [place] [address] Monocytes (Bld) [#/Vol] 0.28 10*3/uL Normal 0.10 - 1.00 [facility] Comment on above: Performed By: #### C BCDF #### [facility] [address] [place] [address] Monocytes/100 WBC (Bld) 8.1 % Normal 2.0 - 10.0 [facility] Comment on above: Performed By: #### C BCDF #### [facility] [address] [place] [address] Neutrophils (Bld) [#/Vol] 2.17 10*3/uL Normal 1.20 - 7.70 [facility] Comment on above: Performed By: #### C BCDF #### [address] [address] Neutrophils/100 WBC (Bld) 63.1 % Normal 40.0 - 80.0 [facility] Comment on above: Performed By: #### C BCDF #### [facility] [address] [place] [address] Platelets (Bld) [#/Vol] 141 10*3/uL Low 150 - 450 [facility] Comment on above: Performed By: #### C BCDF #### [facility] [address] [place] [address] RBC 4.62 x10E12/L Normal 4.50 - 5.90 [facility] Comment on above: Performed By: #### C BCDF #### [facility] [address] [place] [address] WBC (Bld) [#/Vol] 3.4 10*3/uL Low 4.4 - 11.3 [facility] Comment on above: Performed By: #### C [facility] #### [facility] [address] [id number] Provider Note - ED v3on 05-24 Provider [...] No appar (more content not included)... Normal [facility] Risk Screen - Adult Emergenc yon [...] Learning Preferencesindividual instruction Cultural Considerationsnone Developmental Considerationsnone Presybeterian Considerationsnone Learning Assessment (Other Learner): Learning Assessment (Other Learner): Other learner availableno Pressure Injury/TB/Substance: Pressure Injury: Pressure Injury Present on Admissionno Do you have a coughno Smoking Statusformer smoker Alcohol Usedaily Drug Usedenies Drug 2 Usedenies Admission Risk Screen: Significant IndicatorsComplete CAGE: CAGE: Is this an injured patient at a Trauma Center ([facility]/[place]): no Electronic Signatures: Lorna Tian ([place]) (Signed 07-Jun-2023 08:06) Authored: Preferred Language, Patient Preferred Pharmacy, Advanced Directives, Family Violence Adult, Learning Assessment (Patient), Learning Assessment (Other Learner), Pressure Injury/TB/Substance, Pressure Injury, CAGE Last Updated: 07-Jun-2023 08:06 by Lorna Tian (RN) Normal [facility] TROPONIN I, HIGH SENSITIVITY on 06-07-2023 TROPONIN I, HIGH SENSITIVITY Canceled Normal [facility] Comment on above: Order Comment: TEST [...] performed using a different testing methodology at [facility] than at other [facility] [facility] [facility]. Direct result comparisons should only be made within the same method. Performed By: #### T [facility] #### [address] [address] TROPONIN I, HIGH SENSITIVITY <3 Normal 0 - 20 [facility] Comment on above: Result Comment: . [...] performed using a different testing methodology at [facility] than at other [facility] [place] [facility]. Direct result comparisons should only be made within the same method. Performed By: #### T [facility] #### [facility] [address] [place] [address] TROPONIN I, HIGH SENSITIVITY 3 ng/L Normal 0 - 20 [facility] Comment on above: Result Comment: . [...] performed using a different testing methodology at [facility] than at other [facility] [facility] [facility]. Direct result comparisons should only be made within the same method. Performed By: #### T [facility] #### [facility] [address] [place] [address] Triage - EDon 06-07-2023 Triage - ED [...] by Yamila Roach (ASST N MGR) Normal [facility] BASIC METABOLIC PANELon - Anion gap [Moles/Vol] 13 mmol/L Normal 10 - 20 [facility] Comment on above: Performed By: #### B MP #### [facility] [address] [place] [address] Calcium [Mass/Vol] 9.2 mg/dL Normal 8.6 - 10.3 [facility] Comment on above: Performed By: #### B MP #### [facility] [address] [place] [address] Chloride [Moles/Vol] 102 mmol/L Normal 98 - 107 [facility] Comment on above: Performed By: #### B MP #### [facility] [address] [place] [address] Creatinine [Mass/Vol] 1.02 mg/dL Normal 0.50 - 1.30 [facility] Comment on above: Performed By: #### B MP #### [facility] [address] [place] [address] GFR/1.73 sq M.predicted among non-blacks MDRD (S/P/Bld) [Vol rate/Area] 88 mL/min/{1.73_m2} Normal >90 [facility] Comment on above: Result Comment: CALC ULATIONS OF ESTIMATED GFR ARE PERFORMED USING THE 2020 CKD-EPI STUDY REFIT EQUATION WITHOUT THE RACE VARIABLE FOR THE IDMS-TRACEABLE CREATININE METHODS. https://jasn.asnjournals.org/content/early//ASN.007562 6723 Performed By: #### B MP #### [facility] [address] [place] [address] Glucose [Mass/Vol] 116 mg/dL High 74 - 99 [facility] Comment on above: Performed By: #### B MP #### [facility] [address] [place] [address] HCO3 (Bld) [Moles/Vol] 26 mmol/L Normal 21 - 32 [facility] Comment on above: Performed By: #### B MP #### [facility] [address] [place] [address] Potassium [Moles/Vol] 3.8 mmol/L Normal 3.5 - 5.3 [facility] Comment on above: Performed By: #### B MP #### [facility] [address] [place] [address] Sodium [Moles/Vol] 137 mmol/L Normal 136 - 145 [facility] Comment on above: Performed By: #### B MP #### [facility] [address] [place] [address] Urea nitrogen [Mass/Vol] 17 mg/dL Normal 6 - 23 [facility] Comment on above: Performed By: #### B MP #### [facility] [address] [place] [address] CBC AND DIFFERENTIALon 06-06 % AUTOMATED IMMATURE GRAN 0.3 % Normal 0.0 - 0.9 [facility] Comment on above: Result Comment: Kath ture Granulocyte Count (IG) includes promyelocytes, myelocytes and metamyelocytes but does not include bands. Percent differential counts (%) should be interpreted in the context of the absolute cell counts (cells/L). Performed By: #### C BCDF #### [address] [address] Basophils (Bld) [#/Vol] 0.02 10*3/uL Normal 0.00 - 0.10 [facility] Comment on above: Performed By: #### C BCDF #### [address] [address] Basophils/100 WBC (Bld) 0.5 % Normal 0.0 - 2.0 [facility] Comment on above: Performed By: #### C BCDF #### [address] [address] Eosinophils (Bld) [#/Vol] 0.08 10*3/uL Normal 0.00 - 0.70 [facility] Comment on above: Performed By: #### C BCDF #### [address] [address] Eosinophils/100 WBC (Bld) 2.1 % Normal 0.0 - 6.0 [facility] Comment on above: Performed By: #### C BCDF #### [address] [address] Erythrocyte distribution width (RBC) [Ratio] 12.4 % Normal 11.5 - 14.5 [facility] Comment on above: Performed By: #### C BCDF #### [address] [address] Hematocrit (Bld) [Volume fraction] 38.7 % Low 41.0 - 52.0 [facility] Comment on above: Performed By: #### C BCDF #### [facility] [address] [place] [address] Hemoglobin (Bld) [Mass/Vol] 13.3 g/dL Low 13.5 - 17.5 [facility] Comment on above: Performed By: #### C BCDF #### [facility] [address] [place] [address] Lymphocytes (Bld) [#/Vol] 0.84 10*3/uL Low 1.20 - 4.80 [facility] Comment on above: Performed By: #### C BCDF #### [facility] [address] [place] [address] Lymphocytes/100 WBC (Bld) 22.1 % Normal 13.0 - 44.0 [facility] Comment on above: Performed By: #### C BCDF #### [address] [address] MCHC (RBC) [Mass/Vol] 34.4 g/dL Normal 32.0 - 36.0 [facility] Comment on above: Performed By: #### C BCDF #### [address] [address] MCV (RBC) [Entitic vol] 88 fL Normal 80 - 100 [facility] Comment on above: Performed By: #### C BCDF #### [address] [address] Monocytes (Bld) [#/Vol] 0.29 10*3/uL Normal 0.10 - 1.00 [facility] Comment on above: Performed By: #### C BCDF #### [facility] [address] [place] [address] Monocytes/100 WBC (Bld) 7.6 % Normal 2.0 - 10.0 [facility] Comment on above: Performed By: #### C BCDF #### [facility] [address] [place] [address] Neutrophils (Bld) [#/Vol] 2.56 10*3/uL Normal 1.20 - 7.70 [facility] Comment on above: Performed By: #### C BCDF #### [facility] [address] [place] [address] Neutrophils/100 WBC (Bld) 67.4 % Normal 40.0 - 80.0 [facility] Comment on above: Performed By: #### C BCDF #### [facility] [address] [place] [address] Platelets (Bld) [#/Vol] 144 10*3/uL Low 150 - 450 [facility] Comment on above: Performed By: #### C BCDF #### [facility] [address] [place] [address] RBC 4.41 x10E12/L Low 4.50 - 5.90 [facility] Comment on above: Performed By: #### C BCDF #### [facility] [address] [place] [address] WBC (Bld) [#/Vol] 3.8 10*3/uL Low 4.4 - 11.3 [facility] Comment on above: Performed By: #### C BCDF #### [facility] [address] [place] [address] MAGNESIUMon 06-06-2023 Magnesium [Mass/Vol] 1.86 mg/dL Normal 1.60 - 2.40 [facility] Comment on above: Result Comment: MILD LIPEMIA DETECTED. The result may be falsely elevated due to lipemia or other interferents. Clinical correlation is recommended. Repeat testing may be considered. Performed By: #### M G #### [facility] [address] [place] [address] Provider Note - ED v3on 05-24 Provider Note - ED v3 Provider Note: Results/Vital Signs: Pediatric Clinical Scoring (YAKOV) is no recent YAKOV charted on this account Chart Review: ED NOTES ED NOTES: HPI: Patient presents via EMS with complaint of chest pain. Started suddenly today. Was actually seen in the ED at [facility] several days ago for similar complaint. Patient [...] to me from visits outside of the [facility] system. Review of his records through care everywhere shows that he has multiple and extensive ER visits all across his [place]. Low suspicion of ACS at this time. [...] Patient, EMS External records reviewed: Records from [facility], [facility] Social barriers to care: Access to primary care. Assessment and plan: ED Dx Name:Chest pain Code:R07.9 Disclaimer: This note was dictated by speech recognition. Minor errors in beater out may be present. Please call if you [...] oral liqui (more content not included)... Normal [facility] Risk Screen - Adult Emergenc yon [...] Learning Preferencesindividual instruction Cultural Considerationsnone Developmental Considerationsnone Presybeterian Considerationsnone Learning Assessment (Other Learner): Learning Assessment (Other Learner): Other learner availableno Pressure Injury/TB/Substance: Pressure Injury: Do you have a coughno Smoking Statusnever smoker Admission Risk Screen: Significant IndicatorsComplete CAGE: CAGE: Is this an injured patient at a Trauma Center ([facility]/[place] /[place]): no Electronic Signatures: Anni Sol (RN) (Signed 06-Jun-2023 19:00) Authored: Preferred Language, Patient Preferred Pharmacy, Advanced Directives, Family Violence Adult, Learning Assessment (Patient), Learning Assessment (Other Learner), Pressure Injury/TB/Substance, Pressure Injury, CAGE Last Updated: 06-Jun-2023 19:00 by Anin Sol (RN) Normal [facility] TROPONIN I, HIGH SENSITIVITY on 06-06-2023 TROPONIN I, HIGH SENSITIVITY Canceled Normal [facility] Comment on above: Order Comment: TEST [...] performed using a different testing methodology at [facility] than at other [facility] [place] [facility]. Direct result comparisons should only be made within the same method. Performed By: #### C BCDF #### [facility] [address] [place] [address] TROPONIN I, HIGH SENSITIVITY <3 Normal 0 - 20 [facility] Comment on above: Result Comment: . [...] performed using a different testing methodology at [facility] than at other [facility] [place] [facility]. Direct result comparisons should only be made within the same method. Performed By: #### C BCDF #### [facility] [address] [place] [address] TROPONIN I, HIGH SENSITIVITY <3 Normal 0 - 20 [facility] Comment on above: Result Comment: . [...] performed using a different testing methodology at [facility] than at other [facility] [facility] [facility]. Direct result comparisons should only be made within the same method. Performed By: #### T [facility] #### [address] [address] Triage - EDon 06-06-2023 Triage - ED [...] Accompanied By: self Language: Spoken Language Preferred: Scottish Reading Language Preferred: Scottish CHIEF COMPLAINT HOSEA LAVAREZ is a Male patient with a chief [...] obeys commands Best Verbal Response: (V5) oriented [place] Score: 15 Allergies: yes Patient has homicidal [...] 06-Jun-2023 18:38 by Anni Sol (RN) Normal [facility] CBC AND DIFFERENTIALon 06-04 % AUTOMATED IMMATURE GRAN 0.3 % Normal 0.0 - 0.9 [facility] Comment on above: Result Comment: Kath ture Granulocyte Count (IG) includes promyelocytes, myelocytes and metamyelocytes but does not include bands. Percent differential counts (%) should be interpreted in the context of the absolute cell counts (cells/L). Performed By: #### C BCDF #### [facility] [address] [place] [address] Basophils (Bld) [#/Vol] 0.02 10*3/uL Normal 0.00 - 0.10 [facility] Comment on above: Performed By: #### C BCDF #### [address] [address] Basophils/100 WBC (Bld) 0.6 % Normal 0.0 - 2.0 [facility] Comment on above: Performed By: #### C BCDF #### [address] [address] Eosinophils (Bld) [#/Vol] 0.06 10*3/uL Normal 0.00 - 0.70 [facility] Comment on above: Performed By: #### C BCDF #### [address] [address] Eosinophils/100 WBC (Bld) 1.9 % Normal 0.0 - 6.0 [facility] Comment on above: Performed By: #### C BCDF #### [address] [address] Erythrocyte distribution width (RBC) [Ratio] 12.5 % Normal 11.5 - 14.5 [facility] Comment on above: Performed By: #### C BCDF #### [address] [address] Hematocrit (Bld) [Volume fraction] 43.0 % Normal 41.0 - 52.0 [facility] Comment on above: Performed By: #### C BCDF #### [address] [address] Hemoglobin (Bld) [Mass/Vol] 14.2 g/dL Normal 13.5 - 17.5 [facility] Comment on above: Performed By: #### C BCDF #### [address] [address] Lymphocytes (Bld) [#/Vol] 0.78 10*3/uL Low 1.20 - 4.80 [facility] Comment on above: Performed By: #### C BCDF #### [address] [address] Lymphocytes/100 WBC (Bld) 25.2 % Normal 13.0 - 44.0 [facility] Comment on above: Performed By: #### C BCDF #### [address] [address] MCHC (RBC) [Mass/Vol] 33.0 g/dL Normal 32.0 - 36.0 [facility] Comment on above: Performed By: #### C BCDF #### [address] [address] MCV (RBC) [Entitic vol] 89 fL Normal 80 - 100 [facility] Comment on above: Performed By: #### C BCDF #### [address] [address] Monocytes (Bld) [#/Vol] 0.28 10*3/uL Normal 0.10 - 1.00 [facility] Comment on above: Performed By: #### C BCDF #### [address] [address] Monocytes/100 WBC (Bld) 9.0 % Normal 2.0 - 10.0 [facility] Comment on above: Performed By: #### C BCDF #### [address] [address] Neutrophils (Bld) [#/Vol] 1.95 10*3/uL Normal 1.20 - 7.70 [facility] Comment on above: Performed By: #### C BCDF #### [address] [address] Neutrophils/100 WBC (Bld) 63.0 % Normal 40.0 - 80.0 [facility] Comment on above: Performed By: #### C BCDF #### [address] [address] Platelets (Bld) [#/Vol] 158 10*3/uL Normal 150 - 450 [facility] Comment on above: Performed By: #### C BCDF #### [address] [address] RBC 4.85 x10E12/L Normal 4.50 - 5.90 [facility] Comment on above: Performed By: #### C BCDF #### [address] [address] WBC (Bld) [#/Vol] 3.1 10*3/uL Low 4.4 - 11.3 [facility] Comment on above: Performed By: #### C BCDF #### [address] [address] COMPREHENSIVE PANELon 2022 Albumin [Mass/Vol] 4.5 g/dL Normal 3.4 - 5.0 [facility] Comment on above: Performed By: #### C MP #### [address] [address] ALP [Catalytic activity/Vol] 67 U/L Normal 33 - 120 [facility] Comment on above: Performed By: #### C MP #### [address] [address] ALT [Catalytic activity/Vol] 31 U/L Normal 10 - 52 [facility] Comment on above: Result Comment: Yanni ents treated with Sulfasalazine may generate falsely decreased results for ALT. Performed By: #### C MP #### [address] [address] Anion gap [Moles/Vol] 13 mmol/L Normal 10 - 20 [facility] Comment on above: Performed By: #### C MP #### [address] [address] AST [Catalytic activity/Vol] 22 U/L Normal 9 - 39 [facility] Comment on above: Performed By: #### C MP #### [address] [address] Bilirubin [Mass/Vol] 0.4 mg/dL Normal 0.0 - 1.[address] [facility] Comment on above: Performed By: #### C MP #### [address] [address] Calcium [Mass/Vol] 9.5 mg/dL Normal 8.6 - 10.3 [facility] Comment on above: Performed By: #### C MP #### [address] [address] Chloride [Moles/Vol] 102 mmol/L Normal 98 - [address] [facility] Comment on above: Performed By: #### C MP #### [address] [address] Creatinine [Mass/Vol] 0.96 mg/dL Normal 0.50 - 1.30 [facility] Comment on above: Performed By: #### C MP #### [address] [address] eGFR MALE >90 Normal >90 [facility] [place] Comment on above: Result Comment: CALC ULATIONS OF ESTIMATED GFR ARE PERFORMED USING THE 2020 CKD-EPI STUDY REFIT EQUATION WITHOUT THE RACE VARIABLE FOR THE IDMS-TRACEABLE CREATININE METHODS. https://jasn.asnjournals.org/content/early//ASN.527246 9719 Performed By: #### C MP #### [address] [address] Glucose [Mass/Vol] 99 mg/dL Normal 74 - 99 [facility] Comment on above: Performed By: #### C MP #### [address] [address] HCO3 (Bld) [Moles/Vol] 27 mmol/L Normal 21 - 32 [facility] Comment on above: Performed By: #### C MP #### [address] [address] Potassium [Moles/Vol] 3.7 mmol/L Normal 3.5 - 5.3 [facility] Comment on above: Performed By: #### C MP #### [address] [address] Protein [Mass/Vol] 7.6 g/dL Normal 6.4 - 8.2 [facility] Comment on above: Performed By: #### C MP #### [address] [address] Sodium [Moles/Vol] 138 mmol/L Normal 136 - 145 [facility] Comment on above: Performed By: #### C MP #### [address] [address] Urea nitrogen [Mass/Vol] 14 mg/dL Normal 6 - 23 [facility] Comment on above: Performed By: #### C MP #### [address] [address] D-DIMER, VTE EXCLUSIONon D-DIMER, VTE EXCLUSION 278 ng/mL FEU Normal < or = 500 [facility] Comment on above: Result Comment: The VTE [...] exclusion.) Performed By: #### D IMEX #### [address] [address] MAGNESIUMon 06-04-2023 Magnesium [Mass/Vol] 1.87 mg/dL Normal 1.60 - 2.40 [facility] Comment on above: Performed By: #### M G #### [address] [address] PT/INRon 06-04-2023 PT Coag (PPP) [Time] 10.9 s Normal 9.8 - 12.[address] [facility] Comment on above: Result Comment: Note new reference range as of 03/12/2023 at 10:00am. Performed By: #### P TINR #### [address] [address] PT, INR 1.0 Normal 0.9 - 1.1 [facility] Comment on above: Performed By: #### P TINR #### [address] [address] Provider Note - ED v3on 05-24 Provider [...] shoulder. He reports a previous history of AL, and states that he wants his troponin checked. Patient further explains that he is from [place], and says that he has been unable to fill his metoprolol and losartan prescriptions here in [place], but he did take his clonidine today. [...] L arm. 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 Normal [facility] Risk Screen - Adult Emergenc yon 06-04-2023 [...] instruction; written material Cultural Considerationsnone Developmental Considerationsnone Presybeterian Considerationsnone Learning Assessment (Other Learner): Learning Assessment (Other Learner): Other learner availableno Pressure Injury/TB/Substance: Pressure Injury: Do you have a coughno Smoking Statusnever smoker Alcohol Usedaily Drug Usedenies Substance Comment1 beer daily Admission Risk Screen: Significant IndicatorsComplete CAGE: CAGE: Is this an injured patient at a Trauma Center ([facility] /[place]): no Electronic Signatures: Megan Almonte (BROOKLYNN) (Signed 04-Jun-2023 15:11) Authored: Preferred Language, Patient Preferred Pharmacy, Advanced Directives, Family Violence Adult, Learning Assessment (Patient), Learning Assessment (Other Learner), Pressure Injury/TB/Substance, Pressure Injury, CAGE Last Updated: 04-Jun-2023 15:11 by Megan Almonte (BROOKLYNN) Normal [facility] TROPONIN I, HIGH SENSITIVITY on 06-04-2023 TROPONIN I, HIGH SENSITIVITY 3 ng/L Normal 0 - 20 [facility] Comment on above: Result Comment: . Less [...] performed using a different testing methodology at [facility] than at other [facility] [place] [facility]. Direct result comparisons should only be made within the same method. Performed By: #### T [facility] #### [address] [place] [address] TROPONIN I, HIGH SENSITIVITY Canceled Normal [facility] Comment on above: Order Comment: TEST TROPONIN [...] performed using a different testing methodology at [facility] than at other [facility] [place] [facility]. Direct result comparisons should only be made within the same method. Performed By: #### T [facility] #### [facility] [address] [place] [address] TROPONIN I, HIGH SENSITIVITY 3 ng/L Normal 0 - 20 [facility] Comment on above: Result Comment: . Less [...] performed using a different testing methodology at [facility] than at other [facility] [place] [facility]. Direct result comparisons should only be made within the same method. Performed By: #### T [facility] #### [address] [place] [address] Triage - EDon 06-04-2023 Triage - ED Chart Review: ARRIVAL INFORMATION Mode of Arrival: ambulance Agency Name: [facility] CHIEF COMPLAINT HOSEA ALVAREZ is a Male patient with a chief complaint of chest pain. Other Complaints: Pt states having CP on L side of chest and going into L arm. 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 Pt took 1 nitro and squad gave [...] obeys commands Best Verbal Response: (V5) oriented [place] Score: 15 Cough lasting greater than 3 [...] by Megan Almonte (RN) Normal [facility] BASIC METABOLIC PANELon 09-0 Anion gap [Moles/Vol] 12 mmol/L Normal 10-20 [facility] Comment on above: Performed By: #### C H8, ETOH, HEPATIC #### [facility] [address] [place] [address] [place] [address] Calcium [Mass/Vol] 8.8 mg/dL Normal 8.4-10.4 [facility] Comment on above: Performed By: #### C H8, ETOH, HEPATIC #### [facility] [address] [place] [address] [place] [address] Chloride [Moles/Vol] 102 mmol/L Normal 97-111 [facility] Comment on above: Performed By: #### C H8, ETOH, HEPATIC #### [facility] [address] [place] [address] [place] [address] CO2 [Moles/Vol] 26 mmol/L Normal 21-30 [facility] Comment on above: Performed By: #### C H8, ETOH, HEPATIC #### [facility] [address] [place] [address] [place] [address] Creatinine [Mass/Vol] 1.05 mg/dL Normal 0.80-1.30 [facility] Comment on above: Performed By: #### C H8, ETOH, HEPATIC #### [facility] [address] [place] [address] [place] [address] ESTIMATED GFR (CKD-EPI) 86 mL/min/1.73sqm Normal >=60 [...] Inclusion of Race in Diagnosing Kidney Disease. Vincentian Journal of Kidney Diseases 2021;79(2):268-88.e1. 2. N Engl J Med 1 Vol. 385 Issue 19 Pages 7144-0879 Performed By: #### C H8, ETOH, HEPATIC #### [facility] [address] [place] [address] [place] [address] Glucose [Mass/Vol] 111 mg/dL High 68-110 [facility] Comment on above: Performed By: #### C H8, ETOH, HEPATIC #### [facility] [address] [place] [address] [place] [address] Potassium [Moles/Vol] 3.6 mmol/L Normal 3.3-5.3 [facility] Comment on above: Performed By: #### C H8, ETOH, HEPATIC #### [facility] [address] [place] [address] [place] [address] Sodium [Moles/Vol] 136 mmol/L Normal 135-148 [facility] Comment on above: Performed By: #### C H8, ETOH, HEPATIC #### [facility] [address] [place] [address] [place] [address] Urea nitrogen [Mass/Vol] 15 mg/dL Normal 8-22 [facility] Comment on above: Performed By: #### C H8, ETOH, HEPATIC #### [facility] [address] [place] [address] Basic metabolic 2000 panelOr dered By: Kaleigh [...] Inclusion of Race in Diagnosing Kidney Disease. Vincentian Journal of Kidney Diseases 2021;79(2):268-88.e1. 2. N Engl J Med 2020 Vol. 385 Issue 19 Pages 8919-3437 Glucose [Mass/Vol] 111 mg/dL High 68 - [...] Performed By: #### C BCDSAT #### [facility] [address] [place] [address] [place] [address] Basophils/100 WBC (Bld) 0.3 % Normal <=1.9 [facility] Comment on above: Performed By: #### C BCDSAT #### [facility] [address] [place] [address] [place] [address] Eosinophils (Bld) [#/Vol] 0.10 10*3/uL Normal 0.00-0.70 [facility] Comment on above: Performed By: #### C BCDSAT #### [facility] [address] [place] [address] [place] [address] Eosinophils/100 WBC (Bld) 1.9 % Normal 0.1-4.0 [facility] Comment on above: Performed By: #### C BCDSAT #### [facility] [address] [place] [address] [place] [address] Erythrocyte distribution width (RBC) [Ratio] 13.4 % Normal 11.5-14.5 [facility] Comment on above: Performed By: #### C BCDSAT #### [facility] [address] [place] [address] [place] [address] Hematocrit (Bld) [Volume fraction] 37.1 % Low 41.0-53.0 [facility] Comment on above: Performed By: #### C BCDSAT #### [facility] [address] [place] [address] [place] [address] Hemoglobin (Bld) [Mass/Vol] 12.6 g/dL Low 13.9-16.3 [facility] Comment on above: Performed By: #### C BCDSAT #### [facility] [address] [place] [address] [place] [address] Lymphocytes (Bld) [#/Vol] 0.90 10*3/uL Low 1.00-4.80 [facility] Comment on above: Performed By: #### C BCDSAT #### [facility] [address] [place] [address] [place] [address] Lymphocytes/100 WBC (Bld) 26.3 % Normal 24.0-44.0 [facility] Comment on above: Performed By: #### C BCDSAT #### [facility] [address] [place] [address] [place] [address] MCH (RBC) [Entitic mass] 29.5 pg Normal 26.0-34.0 [facility] Comment on above: Performed By: #### C BCDSAT #### [facility] [address] [place] [address] [place] [address] MCHC (RBC) [Mass/Vol] 33.8 g/dL Normal 32.0-35.9 [facility] Comment on above: Performed By: #### C BCDSAT #### [facility] [address] [place] [address] [place] [address] MCV (RBC) [Entitic vol] 87 fL Normal 80-100 [facility] Comment on above: Performed By: #### C BCDSAT #### [facility] [address] [place] [address] [place] [address] MONOCYTE DISTRIBUTION WIDTH Normal [facility] Comment on above: Performed By: #### C BCDSAT #### [facility] [address] [place] [address] [place] [address] Monocytes (Bld) [#/Vol] 0.30 10*3/uL Normal 0.20-1.00 [facility] Comment on above: Performed By: #### C BCDSAT #### [facility] [address] [place] [address] [place] [address] Monocytes/100 WBC (Bld) 7.8 % Normal 2.0-11.0 [facility] Comment on above: Performed By: #### C BCDSAT #### [facility] [address] [place] [address] [place] [address] Neutrophils (Bld) [#/Vol] 2.10 10*3/uL Normal 1.50-8.00 [facility] Comment on above: Performed By: #### C BCDSAT #### [facility] [address] [place] [address] [place] [address] Neutrophils/100 WBC (Bld) 63.7 % Normal 31.0-76.0 [facility] Comment on above: Performed By: #### C BCDSAT #### [facility] [address] [place] [address] [place] [address] Nucleated RBC (Bld) [#/Vol] 0.1 10*3/uL Normal [facility] Comment on above: Performed By: #### C BCDSAT #### [facility] [address] [place] [address] [place] [address] Nucleated RBC (Bld) [#/Vol] 0.00 10*3/uL Normal [facility] Comment on above: Performed By: #### C BCDSAT #### [facility] [address] [place] [address] [place] [address] Platelet mean volume (Bld) [Entitic vol] 9.6 fL Normal 7.5-11.2 [facility] Comment on above: Performed By: #### C BCDSAT #### [facility] [address] [place] [address] [place] [address] Platelets (Bld) [#/Vol] 138 10*3/uL Low 150-400 [facility] Comment on above: Performed By: #### C BCDSAT #### [facility] [address] [place] [address] [place] [address] RBC (Bld) [#/Vol] 4.25 10*6/uL Low 4.50-5.90 [facility] Comment on above: Performed By: #### C BCDSAT #### [facility] [address] [place] [address] [place] [address] WBC (Bld) [#/Vol] 3.3 10*3/uL Low 4.5-11.5 [facility] Comment on above: Performed By: #### C BCDSAT #### [facility] [address] 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 52-year-old male was apparently on a park bench and called for EMS for dizziness. He states that he was in the [facility] I asked what he was doing there and he states that he was hiking . However he is accompanied by a huge bag full of his belongings. I asked where he lives or if he has a home and he states that he lives in [place]. Yesterday he was seen at 3 different [facility] Emergency department's, the 1st time at [facility] where he apparently was acting unruly at a gas station and ended up signing out AMA. He was then seen at [facility] for dark stools and palpitations and was treated and released and finally he was evaluated at [facility] and treated and released. 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: No REVIEW OF SYSTEMS Review of [...] History: Diagnosis Date * Bipolar 1 disorder ([facility]) * Homeless * Thoracic aortic aneurysm ([facility]) Patient Active Problem List: BPPV (benign paroxysmal positional vertigo) [H81.10] Vestibular neuritis [H81.20] Bipolar disorder ([facility]) [F31.9] Essential hypertension [I10] Paresthesia [R20.2] Homeless [Z59.00] Pulmonary embolism ([facility]) [I26.99] Aneurysm of thoracic aorta ([facility]) [I71.20] Anxiety [F41.9] Renal artery stenosis ([facility]) [I70.1] Pertinent Social History: Social History Tobacco [...] MD Course: ED Course as of 05/30/23 673 (more content not included)... Normal [facility] Exam Proctor Authentication Interface Message Text Normal [facility] ETHANOL, SERUMon 05-30-2023 Ethanol [Mass/Vol] 41 mg/dL High None Detected [facility] Comment on above: Performed By: #### C H8, ETOH, HEPATIC #### [facility] [address] [place] [address] [place] [address] Ethanol [Mass/Vol] 41 mg/dL High None Detected [facility] Interpretation and review of laboratory results Abnormal [facility] HEPATIC FUNCTION PANELon Albumin [Mass/Vol] 4.1 g/dL Normal 3.4-5.1 [facility] Comment on above: Performed By: #### C H8, ETOH, HEPATIC #### [facility] [address] [place] [address] [place] [address] ALK 54 IU/L Normal 40-200 [facility] Comment on above: Performed By: #### C H8, ETOH, HEPATIC #### [facility] [address] [place] [address] [place] [address] ALT [Catalytic activity/Vol] 24 U/L Normal 7-40 [facility] Comment on above: Performed By: #### C H8, ETOH, HEPATIC #### [facility] [address] [place] [address] [place] [address] AST [Catalytic activity/Vol] 19 U/L Normal 7-40 [facility] Comment on above: Performed By: #### C H8, ETOH, HEPATIC #### [facility] [address] [place] [address] [place] [address] Bilirubin [Mass/Vol] 0.5 mg/dL Normal 0.1-1.5 [facility] Comment on above: Performed By: #### C H8, ETOH, HEPATIC #### [facility] [address] [place] [address] [place] [address] Bilirubin.direct [Mass/Vol] 0.10 mg/dL Normal 0.10-0.30 [facility] Comment on above: Performed By: #### C H8, ETOH, HEPATIC #### [facility] [address] [place] [address] [place] [address] Protein [Mass/Vol] 6.5 g/dL Normal 6.2-8.3 [facility] Comment on above: Performed By: #### C H8, ETOH, HEPATIC #### [facility] [address] [place] [address] Albumin [Mass/Vol] 4.1 g/dL 3.4 - 5.1 g/dL [facility] ALP [Catalytic activity/Vol] 54 U/L [facility] ALT [Catalytic activity/Vol] 24 U/L [facility] AST [Catalytic activity/Vol] 19 U/L [facility] Bilirubin [Mass/Vol] 0.5 mg/dL 0.1 - 1 .5 mg/dL [facility] Bilirubin.direct [Mass/Vol] 0.10 mg/dL 0.10 - 0.30 mg/dL [facility] Interpretation and review of laboratory results Normal [facility] Protein [Mass/Vol] 6.5 g/dL 6.2 - 8.3 g/dL [facility] HIGH SENSITIVITY TROPONIN Io n 05-30-2023 HS TROPONIN I < 4 Normal <=15 [facility] Comment on above: Order Comment: High Sensitivity Cardiac Troponin I (hsTnI) assay has replaced the conventional troponin assay at [facility]. All results are reported in whole numbers representing ng/L. Repeat test times for ruling out acute coronary syndrome (ACS) are every 2 hours instead of every 6-8 hours. [id number]-pb-pfst conventional troponin (I-stat) will remain available in the [facility] ED ??? results obtained by different labs [...] Performed By: #### H STRP #### [facility] [address] [place] [address] Troponin I.cardiac DL <= 0.01 ng/mL [Mass/Vol] [...] ng/mL Buprenorphine 5 ng/mL Alcohol 10 mg/dL [facility] TOXICOLOGY SCREEN, UNCONFIRM EDon 05-30-2023 AMPH Negative Normal Negative [facility] Comment on above: Order Comment: [...] By: #### T OX SC #### [facility] [address] [place] [address] [place] [address] BARBIT Negative Normal Negative [facility] Comment on above: Order Comment: [...] By: #### T OX SC #### [facility] [address] [place] [address] [place] [address] BENZO Negative Normal Negative [facility] Comment on above: Order Comment: [...] By: #### T OX SC #### [facility] [address] [place] [address] [place] [address] COCAINE CL Negative Normal Negative [facility] Comment on above: Order Comment: This [...] By: #### T OX SC #### [facility] [address] [place] [address] [place] [address] Ethanol [Mass/Vol] Positive Abnormal Cutoff: 1 0 mg/dL [facility] Comment on above: Order Comment: This [...] By: #### T OX SC #### [facility] [address] [place] [address] [place] [address] FENTANYL Negative Normal Negative [facility] Comment on above: Order Comment: This [...] By: #### T OX SC #### [facility] [address] [place] [address] [place] [address] HYDROCODONE (PM) Negative Normal Negative [facility] Comment on above: Order Comment: This [...] 10 mg/dL Performed By: #### T OX RI #### [facility] [address] [place] [address] [place] [address] Methadone Ql (U) Negative Normal Negative [facility] Comment on above: Order Comment: This [...] By: #### T OX SC #### [facility] [address] [place] [address] [place] [address] NORBUPRENORPHINE Negative Normal Cutoff: 5 [facility] Comment on above: Order Comment: This [...] 10 mg/dL Performed By: #### T OX RI #### [facility] [address] [place] [address] [place] [address] OPIATE Negative Normal Negative [facility] [...] 10 mg/dL Performed By: #### T OX RI #### [facility] [address] [place] [address] [place] [address] OXYCODONE Negative Normal Cutoff: 100 [facility] Comment on above: Order Comment: This [...] By: #### T OX SC #### [facility] [address] [place] [address] [place] [address] PHENCYCL Negative Normal Negative [facility] Comment on above: Order Comment: This [...] By: #### T OX SC #### [facility] [address] [place] [address] [place] [address] THC CL Negative Normal Negative [facility] Comment on above: Order Comment: [...] By: #### T OX SC #### [facility] [address] [place] [address] [place] [address] Troponin I.cardiac DL <= 0.0 1 ng/mL [Mass/Vol]on 05-30-2023 Interpretation and review of laboratory results Normal [facility] High Sensitivity Car diac Troponin I (hsTnI) assay has replaced the conventional troponin assay at [facility]. All results are reported in whole numbers representing ng/L. Repeat test times for ruling out acute coronary syndrome (ACS) are every 2 hours instead of every 6-8 hours. Spepq-js-mdha conventional troponin (I-stat) will remain available in the [facility] ED results obtained by different labs or [...] Performed By: #### u rinalysis #### [facility] [address] [place] [address] U APPEAR Clear Normal Clear [facility] Comment on above: Performed By: #### u rinalysis #### [facility] [address] [place] [address] [place] [address] U BILI Negative Normal Negative [facility] Comment on above: Performed By: #### u rinalysis #### [facility] [address] [place] [address] [place] [address] U BLOOD Negative Normal Negative [facility] Comment on above: Performed By: #### u rinalysis #### [facility] [address] [place] [address] [place] [address] U COLOR Yellow Normal Yellow [facility] Comment on above: Performed By: #### u rinalysis #### [facility] [address] [place] [address] [place] [address] U KETONE Negative Normal Negative [facility] Comment on above: Performed By: #### u rinalysis #### [facility] [address] [place] [address] [place] [address] U LEUK Negative Normal Negative [facility] Comment on above: Performed By: #### u rinalysis #### [facility] [address] [place] [address] [place] [address] U NITRITE Negative Normal Negative [facility] Comment on above: Performed By: #### u rinalysis #### [facility] [address] [place] [address] [place] [address] U PH 7.0 Normal 5.0-8.0 [facility] Comment on above: Performed By: #### u rinalysis #### [facility] [address] [place] [address] [place] [address] U PROTEIN Negative Normal Negative [facility] Comment on above: Performed By: #### u rinalysis #### [facility] [address] [place] [address] [place] [address] U SG 1.015 Normal 1.005-1.030 [facility] Comment on above: Performed By: #### u rinalysis #### [facility] [address] [place] [address] U UROBILI 0.2 mg/dL Normal 0.2 - 1.0 [facility] Comment on above: Performed By: #### u rinalysis #### [facility] [address] [place] [address] Basic metabolic 2000 panelon 05-29-2023 Anion gap [Moles/Vol] 12 mmol/L Normal 9-18 [facility] Comment on above: Order Comment: Speci men Type: BLOOD SPECIMEN Ordering Facility: [facility] Address: [address] Performed By: #### 2 432-2, #### [facility] CLIA [id number] [address] [place] [address] [place] Calcium [Mass/Vol] 9.6 mg/dL Normal 8.5-10.2 [facility] Comment on above: Order Comment: Speci men Type: BLOOD SPECIMEN Ordering Facility: [facility] Address: [address] [place] [address] Performed By: #### 2 4322, #### [facility] CLIA [id number] [address] [place] [address] [place] Chloride [Moles/Vol] 101 mmol/L Normal 97-105 [facility] Comment on above: Order Comment: Speci men Type: BLOOD SPECIMEN Ordering Facility: [facility] Address: [address] [place] [id number] Performed By: #### 2 2, #### [facility] CLIA [id number] [address] [place] [id number] [place] CO2 [Moles/Vol] 25 mmol/L Normal 22-30 [facility] Comment on above: Order Comment: Speci men Type: BLOOD SPECIMEN Ordering Facility: [facility] Address: [address] [place] [id number] Performed By: #### 2 4321-2, #### [facility] CLIA [id number] [address] [place] [address] [place] Creatinine [Mass/Vol] 0.98 mg/dL Normal 0.73-1.22 [facility] Comment on above: Order Comment: Speci men Type: BLOOD SPECIMEN Ordering Facility: [facility] Address: [address] Performed By: #### 2 4321-2, #### [facility] CLIA [id number] [address] [place] [address] [place] Creatinine and Glomerular filtration rate.predicted panel (S/P/Bld) 93 mL/min/1.73m??? Normal >=60 [facility] Comment on above: Order Comment: Ariella men Type: BLOOD SPECIMEN Ordering Facility: [facility] Address: [address] [place] [address] Result Comment: Nikole mated Glomerular Filtration Rate [...] GFR. Performed By: #### 2 4321-2, #### [facility] CLIA [id number] [address] [place] [address] [place] Glucose [Mass/Vol] 97 mg/dL Normal 74-99 [facility] Comment on above: Order Comment: Speci men Type: BLOOD SPECIMEN Ordering Facility: [facility] Address: [address] [place] [address] Result Comment: The [place] [employer] Association (ADA) provides guidance for cutoff [...] Standards of Medical Care in Diabetes 2016, [place] [employer]. Diabetes Care. 2016.39(Suppl 1). Performed By: #### 2 4320-10, #### [facility] CLIA [id number] [address] [place] [address] [place] Potassium [Moles/Vol] 4.2 mmol/L Normal 3.7-5.1 [facility] Comment on above: Order Comment: Speci men Type: BLOOD SPECIMEN Ordering Facility: [facility] Address: [address] [place] [address] Performed By: #### 2 4320-10, #### [facility] CLIA [id number] [address] [place] [address] [place] Sodium [Moles/Vol] 138 mmol/L Normal 136-144 [facility] Comment on above: Order Comment: Speci men Type: BLOOD SPECIMEN Ordering Facility: [facility] Address: [address] Performed By: #### 2 4320-10, #### [facility] CLIA [id number] [address] [place] [address] [place] Urea nitrogen [Mass/Vol] 12 mg/dL Normal 9-24 [facility] Comment on above: Order Comment: Speci men Type: BLOOD SPECIMEN Ordering Facility: [facility] Address: [address] Performed By: #### 2 4320-10, #### [facility] CLIA [id number] [address] [place] [address] [place] CBC W Auto Differential pane l (Bld)on 05-29-2023 Basophils (Bld) [#/Vol] 10*3/uL Normal <0.11 [facility] Comment on above: Order Comment: Speci men Type: BLOOD SPECIMEN Ordering Facility: [facility] Address: [address] [place] [address] Performed By: #### 5 7021-8 #### [facility] CLIA [id number] [address] [place] [address] [place] Basophils/100 WBC (Bld) 0.6 % Normal [facility] Comment on above: Order Comment: Speci men Type: BLOOD SPECIMEN Ordering Facility: [facility] Address: [address] [place] [address] Performed By: #### 5 7021-8 #### [facility] CLIA [id number] [address] [place] [address] [place] Differential cell count method Nom (Bld) Auto Normal [facility] Comment on above: Order Comment: Speci men Type: BLOOD SPECIMEN Ordering Facility: [facility] Address: [address] [place], [place] [address] Performed By: #### 5 7021-8 #### [facility] CLIA [id number] [address] [place] [address] [place] Eosinophils (Bld) [#/Vol] 0.05 10*3/uL Normal <0.46 [facility] Comment on above: Order Comment: Speci men Type: BLOOD SPECIMEN Ordering Facility: [facility] Address: [address] [place], [place] [address] Performed By: #### 5 7021-8 #### [facility] CLIA [id number] [address] [place] [address] [place] Eosinophils/100 WBC (Bld) 1.4 % Normal [facility] Comment on above: Order Comment: Speci men Type: BLOOD SPECIMEN Ordering Facility: [facility] Address: [address] Performed By: #### 5 7021-8 #### [facility] CLIA [id number] [address] [place] [address] [place] Erythrocyte distribution width (RBC) [Ratio] 12.6 % Normal 11.5-15.0 [facility] Comment on above: Order Comment: Speci men Type: BLOOD SPECIMEN Ordering Facility: [facility] Address: [address] Performed By: #### 5 7021-8 #### [facility] CLIA [id number] [address] [place] [address] [place] Hematocrit (Bld) [Volume fraction] 41.9 % Normal 39.0-51.0 [facility] Comment on above: Order Comment: Speci men Type: BLOOD SPECIMEN Ordering Facility: [facility] Address: [address] Performed By: #### 5 7021-8 #### [facility] CLIA [id number] [address] [place] [address] [place] Hemoglobin (Bld) [Mass/Vol] 14.2 g/dL Normal 13.0-17.0 [facility] Comment on above: Order Comment: Speci men Type: BLOOD SPECIMEN Ordering Facility: [facility] Address: [address] Performed By: #### 5 7021-8 #### [facility] CLIA [id number] [address] [place] [address] [place] Immature granulocytes (Bld) [#/Vol] 10*3/uL Normal <0.10 [facility] Comment on above: Order Comment: Speci men Type: BLOOD SPECIMEN Ordering Facility: [facility] Address: [address] [place], [place] [address] Performed By: #### 5 7021-8 #### [facility] CLIA [id number] [address] [place] [address] [place] Immature granulocytes/100 WBC (Bld) 0.3 % Normal [facility] Comment on above: Order Comment: Speci men Type: BLOOD SPECIMEN Ordering Facility: [facility] Address: [address] [place] [address] Performed By: #### 5 7021-8 #### [facility] CLIA [id number] [address] [place] [address] [place] Lymphocytes (Bld) [#/Vol] 0.92 10*3/uL Low 1.00-4.00 [facility] Comment on above: Order Comment: Speci men Type: BLOOD SPECIMEN Ordering Facility: [facility] Address: [address] [place] [address] Performed By: #### 5 7021-8 #### [facility] CLIA [id number] [address] [place] [address] [place] Lymphocytes/100 WBC (Bld) 25.4 % Normal [facility] Comment on above: Order Comment: Speci men Type: BLOOD SPECIMEN Ordering Facility: [facility] Address: [address] [place], [place] [address] Performed By: #### 5 7021-8 #### [facility] CLIA [id number] [address] [place] [address] [place] MCH (RBC) [Entitic mass] 29.2 pg Normal 26.0-34.0 [facility] Comment on above: Order Comment: Speci men Type: BLOOD SPECIMEN Ordering Facility: [facility] Address: [address] [place] [address] Performed By: #### 5 7021-8 #### [facility] CLIA [id number] [address] [place] [address] [place] MCHC (RBC) [Mass/Vol] 33.9 g/dL Normal 30.5-36.0 [facility] Comment on above: Order Comment: Speci men Type: BLOOD SPECIMEN Ordering Facility: [facility] Address: [address] [place], [place] [address] Performed By: #### 5 7021-8 #### [facility] CLIA [id number] [address] [place] [address] [place] MCV (RBC) [Entitic vol] 86.0 fL Normal 80.0-100.0 [facility] Comment on above: Order Comment: Speci men Type: BLOOD SPECIMEN Ordering Facility: [facility] Address: [address] [place], [place] [address] Performed By: #### 5 7021-8 #### [facility] CLIA [id number] [facility] [place] [address] [place] Monocytes (Bld) [#/Vol] 0.29 10*3/uL Normal <0.87 [facility] Comment on above: Order Comment: Speci men Type: BLOOD SPECIMEN Ordering Facility: [facility] Address: [address] [place], [place] [address] Performed By: #### 5 7021-8 #### [facility] CLIA [id number] [facility] [place] [address] [place] Monocytes/100 WBC (Bld) 8.0 % Normal [facility] Comment on above: Order Comment: Speci men Type: BLOOD SPECIMEN Ordering Facility: [facility] Address: [address] [place] [address] Performed By: #### 5 7021-8 #### [facility] CLIA [id number] [address] [place] [address] [place] Neutrophils (Bld) [#/Vol] 2.33 10*3/uL Normal 1.45-7.50 [facility] Comment on above: Order Comment: Speci men Type: BLOOD SPECIMEN Ordering Facility: [facility] Address: [address] [place] [address] Performed By: #### 5 7021-8 #### [facility] CLIA [id number] [address] [place] [address] [place] Neutrophils/100 WBC (Bld) 64.3 % Normal [facility] Comment on above: Order Comment: Speci men Type: BLOOD SPECIMEN Ordering Facility: [facility] Address: [address] [place] [address] Performed By: #### 5 7021-8 #### [facility] CLIA [id number] [address] [place] [address] [place] Nucleated RBC (Bld) [#/Vol] 10*3/uL Normal <0.01 [facility] Comment on above: Order Comment: Speci men Type: BLOOD SPECIMEN Ordering Facility: [facility] Address: [address] Performed By: #### 5 7021-8 #### [facility] CLIA [id number] [address] [place] [address] [place] Nucleated RBC/100 WBC (Bld) [Ratio] 0.0 /100 WBC Normal [facility] Comment on above: Order Comment: Speci men Type: BLOOD SPECIMEN Ordering Facility: [facility] Address: [address] [place] [address] Performed By: #### 5 7021-8 #### [facility] CLIA [id number] [address] [place] [address] [place] Platelet mean volume (Bld) [Entitic vol] 11.0 fL Normal 9.0-12.7 [facility] Comment on above: Order Comment: Speci men Type: BLOOD SPECIMEN Ordering Facility: [facility] Address: [address] [place] [address] Performed By: #### 5 7021-8 #### [facility] CLIA [id number] [address] [place] [address] [place] Platelets (Bld) [#/Vol] 149 10*3/uL Low 150-400 [facility] Comment on above: Order Comment: Speci men Type: BLOOD SPECIMEN Ordering Facility: [facility] Address: [address] [place] [address] Performed By: #### 5 7021-8 #### [facility] CLIA [id number] [address] [place] [address] [place] RBC (Bld) [#/Vol] 4.87 10*6/uL Normal 4.20-6.00 [facility] Comment on above: Order Comment: Speci men Type: BLOOD SPECIMEN Ordering Facility: [facility] Address: [address] [place] [address] Performed By: #### 5 7021-8 #### [facility] CLIA [id number] [address] [place] [address] [place] WBC (Bld) [#/Vol] 3.62 10*3/uL Low 3.70-11.00 [facility] Comment on above: Order Comment: Speci men Type: BLOOD SPECIMEN Ordering Facility: [facility] Address: [address] [place] [address] Performed By: #### 5 7021-8 #### [facility] CLIA [id number] [address] [place] [address] [facility] [place] OYR46is 05-29-2023 ECG01 Ventricular Rate : 7 1 BPM Atrial Rate : 71 BPM P-R Interval : 172 ms QRS Duration : 98 ms Q-T Interval : 366 ms QTC Calculation(Bazett) : 397 ms Calculated P Wren : 33 degrees Calculated R Wren : -21 degrees Calculated T Wren : 14 degrees NORMAL SINUS RHYTHM NORMAL ECG Confirmed by MD MAO JOSHUA ([id number]), publication editor TJ BOWERS ([id number]) on 05/29/2023 5:04:09 PM NAME : HOSEA ALVAREZ PID : [id number] : 1970 Gender : Male Race : ORD : Procedure Date : May 29 2023 12:05:13 Edit Date : May 29 2023 17:04:13 Diagnosis: NORMAL SINUS RHYTHM NORMAL ECG Confirmed by MD MAO JOSHUA ([id number]), publication editor TJ BOWERS ([id number]) on 05/29/2023 5:04:09 PM Test Reason : Location : 2 : [facility] 003 Overread By : MD MAO JOSHUA Edited By : TJ BOWERS Referred By : , Acquired by : , [facility] ED NOTEon 05-29-2023 ED NOTE HNO ID: [id number] Author: Kely Cadet RN Service: Emergency Medicine Author Type: Registered Nurse Type: ED Notes Filed: 05/29/2023 3:35 PM Note Text: Discharge paperwork handed to pt, follow-up instructions reviewed with pt and pt verbalized understanding. Pt discharged in stable condition. [facility] ED NOTE HNO ID: [id number] Author: Soheila Alvarez RN Service: ? Author Type: Registered Nurse Type: ED Notes Filed: 05/29/2023 11:55 AM Note Text: Bed: E18-03 Expected date: Expected time: Means of arrival: Comments: EMS [facility] ED NOTE HNO ID: [id number] Author: Jose Elias Bliss RN Service: ? Author Type: Registered Nurse Type: ED Notes Filed: 05/29/2023 1:41 AM Note Text: Pt presents per squad with c/o hx of palpitations and dark tarry stool. Pt states he attempted to go [facility] but was kicked out by security. Pt also state he attempted to get [facility] to bring him in, [facility] ED NOTE HNO ID: [id number] Author: Kika Yao RN Service: ? Author Type: Registered Nurse Type: ED Notes Filed: 05/29/2023 1:37 AM Note Text: Bed: ED-10 Expected date: Expected time: Means of arrival: [facility] Comments: [facility] ED NOTE HNO ID: [id number] Author: Monalisa Haq RN Service: ? Author Type: Registered Nurse Type: ED Notes Filed: 05/29/2023 12:27 AM Note Text: Pt refusing treatment. Exam by Paola PANTOJA. Pt is competent at this time and wishes to leave. Request granted [facility] ED NOTE HNO ID: [id number] Author: Monalisa Haq RN Service: ? Author Type: Registered Nurse Type: ED Notes Filed: 05/29/2023 12:26 AM Note Text: Pt refuses to put wristband on, sts he has an anxiety disorder. Paola PANTOJA called to bedside to assess pt [facility] ED PROV NOTEon 05-29-2023 ED PROV NOTE HNO ID: [id number] Author: Carlos Mao MD Service: Anesthesiology Author [...] much. Of note, he was brought to [facility] this morning due to behavioral issues/agitation and left AMA. He later presented to [facility] ED with complaint of dark stool, [...] - Caffeine Rash Other reaction(s): Shakiness - [place] GI Upset, Rash, Vomiting Statused by Person: Imelda Meza.(T Brittaer2) on Statused by Person: SRAVANTHI MONGE([facility]) on Statused by Person: Imelda Meza.(T Brittaer2) on Statused by Person: SRAVANTHI MONGE(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 Normal [facility] ED PROV NOTE HNO ID: [id number] Author: Lily Gregorio PA-C Service: Emergency Medicine Author Type: Physician Financial Systems Director Type: ED Provider Notes Filed: 05/29/2023 2:21 [...] Allergen Reactions Caffeine Rash Other reaction(s): Shakiness [place] GI Upset, Rash, Vomiting Statused by Person: Imelda Meza.(T Carter2) on Statused by Person: SRAVANTHI MONGE([facility]) on Statused by Person: Imelda Meza.(T Carter2) on Statused by Person: SRAVANTHI MONGE(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 Constitutional: General: He is not in [...] LYNNETTE Brooke MICHAEL P 05/29/23 0221 Normal [facility] ED PROV NOTE HNO ID: [id number] Author: Paola Arzola PA-C Service: Emergency Medicine Author Type: Physician Financial Systems Director Type: ED Provider Notes Filed: 05/29/2023 12:35 [...] by: Patient, medical records and EMS personnel environmental planner used: No PAST MEDICAL HISTORY Diagnosis Date [...] Allergen Reactions Caffeine Rash Other reaction(s): Shakiness [place] GI Upset, Rash, Vomiting Statused by Person: Imelda Meza.(T Carter2) on Statused by Person: SRAVANTHI MONGE([facility]) on Statused by Person: Imelda Meza.(T Carter2) on Statused by Person: SRAVANTHI MONGE(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 SIGNATURE: LYNNETTE Chun CARMELA A 05/29/2334 [facility] Magn[facility] [Mass/Vol] 2.1 mg/dL Normal 1.7-2.3 [facility] Comment on above: Order Comment: Speci men Type: BLOOD SPECIMEN Ordering Facility: [facility] Address: [address] [place] [address] Performed By: #### 2 4321-2, 75192-5 #### [facility] CLIA [id number] [address] [facility] [place] ALLIED HEALTHon 05-20-2023 ALLIED HEALTH HNO ID: [id number] Author: Latha Banks Chaplain Service: Spiritual Care Author Type: Control Cabinet Assembler Type: Allied Health Filed: 05/20/2023 4:23 PM Note Text: SPIRITUAL CARE PROGRESS NOTE SERVICE DATE: 05/20/2023 SERVICE TIME: 4:00pm After discharge pt visited spiritual care office. Pt states he is Mu-Ism and prefers to keep Kosher, was [facility] other hospitals. Control Cabinet Assembler expressed confusion as these resources are for patients, pt stated he was seeking a kosher-friendly food pantry. Control Cabinet Assembler attempted to call [employer] to ask whether they have food pantry, provided website information for pt so he could seek additional information. Pt expressed annoyance that his request was not clearly understood. expressed reassurance and empathy. To contact the [facility] Care Department: Please call [phone]. SIGNATURE: Chaplain Mame PATIENT NAME: Hosea Alvarez DATE: May 20, 2023 TIME: 4:21 PM PAGER/CONTACT #: [phone] [facility] HNO ID: [id number] Author: Anni Quintero, RT(R) Service: ? Author Type: Aids Counselor Type: Allied Health Filed: 05/20/2023 12:08 PM [...] RT Trevon(R) May 20, 2023 11:36 AM [facility] HNO ID: [id number] Author: Nicole Brennan RT(R) Service: Radiology Author [...] IV DATA: Not applicable SIGNED BY: Cathryn Anu RT(R) May 20, 2023 9:15 AM Normal [facility] CBC W Auto Differential pane l (Bld)on 05-20-2023 Basophils (Bld) [#/Vol] 10*3/uL Normal <0.11 [facility] Comment on above: Order Comment: Speci men Type: BLOOD SPECIMENOrdering Facility: [facility] Address: [address] [place] [address] Performed By: #### 5 7021-8 ####[facility] [id number] [place] [address] [place] Basophils/100 WBC (Bld) 0.3 % Normal [facility] Comment on above: Order Comment: Speci men Type: BLOOD SPECIMENOrdering Facility: [facility] Address: [address] [place] [address] Performed By: #### 5 7021-8 ####[facility] LABORATORYCLIA [id number] [place] [address] [place] Differential cell count method Nom (Bld) Auto Normal [facility] Comment on above: Order Comment: Speci men Type: BLOOD SPECIMENOrdering Facility: [facility] Address: [address] [place] [address] Performed By: #### 5 7021-8 ####[facility] LABORATORYCLIA [id number] [place] [address] [place] Eosinophils (Bld) [#/Vol] 0.08 10*3/uL Normal <0.46 [facility] Comment on above: Order Comment: Speci men Type: BLOOD SPECIMENOrdering Facility: [facility] Address: [address] [place] [address] Performed By: #### 5 7021-8 ####[facility] LABORATORYCLIA [id number] [place] [address] [place] Eosinophils/100 WBC (Bld) 2.3 % Normal [facility] Comment on above: Order Comment: Speci men Type: BLOOD SPECIMENOrdering Facility: [facility] Address: [address] [address] Performed By: #### 5 7021-8 ####[facility] LABORATORYCLIA [id number] [place] [address] [place] Erythrocyte distribution width (RBC) [Ratio] 12.5 % Normal 11.5-15.0 [facility] Comment on above: Order Comment: Speci men Type: BLOOD SPECIMENOrdering Facility: [facility] Address: [address] [address] Performed By: #### 5 7021-8 ####[facility] LABORATORYCLIA [id number] [place] [address] [place] Hematocrit (Bld) [Volume fraction] 38.2 % Low 39.0-51.0 [facility] Comment on above: Order Comment: Speci men Type: BLOOD SPECIMENOrdering Facility: [facility] Address: [address] [address] Performed By: #### 5 7021-8 ####[facility] LABORATORYCLIA [id number] [place] [address] [place] Hemoglobin (Bld) [Mass/Vol] 13.0 g/dL Normal 13.0-17.0 [facility] Comment on above: Order Comment: Speci men Type: BLOOD SPECIMENOrdering Facility: [facility] Address: [address] [address] Performed By: #### 5 7021-8 ####[facility] LABORATORYCLIA [id number] [place] [address] [place] Immature granulocytes (Bld) [#/Vol] 10*3/uL Normal <0.10 [facility] Comment on above: Order Comment: Speci men Type: BLOOD SPECIMENOrdering Facility: [facility] Address: [address] [address] Performed By: #### 5 7021-8 ####[facility] LABORATORYCLIA [id number] [place] [address] [place] Immature granulocytes/100 WBC (Bld) 0.6 % Normal [facility] Comment on above: Order Comment: Speci men Type: BLOOD SPECIMENOrdering Facility: [facility] Address: [address] [place] [address] Performed By: #### 5 7021-8 ####[facility] LABORATORYCLIA [id number] [address] [place] Lymphocytes (Bld) [#/Vol] 0.63 10*3/uL Low 1.00-4.00 [facility] Comment on above: Order Comment: Speci men Type: BLOOD SPECIMENOrdering Facility: [facility] Address: [address] [place] [address] Performed By: #### 5 7021-8 ####[facility] LABORATORYCLIA [id number] [address] Lymphocytes/100 WBC (Bld) 18.1 % Normal [facility] Comment on above: Order Comment: Speci men Type: BLOOD SPECIMENOrdering Facility: [facility] Address: [address] [place] [address] Performed By: #### 5 7021-8 ####[facility] LABORATORYCLIA [id number] [place] [address] [place] MCH (RBC) [Entitic mass] 29.2 pg Normal 26.0-34.0 [facility] Comment on above: Order Comment: Speci men Type: BLOOD SPECIMENOrdering Facility: [facility] Address: [address] [place] [address] Performed By: #### 5 7021-8 ####[facility] LABORATORYCLIA [id number] [place] [address] [place] MCHC (RBC) [Mass/Vol] 34.0 g/dL Normal 30.5-36.0 [facility] Comment on above: Order Comment: Speci men Type: BLOOD SPECIMENOrdering Facility: [facility] Address: [address] [place] [address] Performed By: #### 5 7021-8 ####[facility] LABORATORYCLIA [id number] [place] [address] [place] MCV (RBC) [Entitic vol] 85.8 fL Normal 80.0-100.0 [facility] Comment on above: Order Comment: Speci men Type: BLOOD SPECIMENOrdering Facility: [facility] Address: [address] [place] [address] Performed By: #### 5 7021-8 ####[facility] LABORATORYCLIA [id number] [address] [id number] [place] Monocytes (Bld) [#/Vol] 0.28 10*3/uL Normal <0.87 [facility] Comment on above: Order Comment: Speci men Type: BLOOD SPECIMENOrdering Facility: [facility] Address: [address] [place] [address] Performed By: #### 5 7021-8 ####[facility] LABORATORYCLIA [id number] [address] [place] Monocytes/100 WBC (Bld) 8.0 % Normal [facility] Comment on above: Order Comment: Speci men Type: BLOOD SPECIMENOrdering Facility: [facility] Address: [address] [place] [address] Performed By: #### 5 7021-8 ####[facility] LABORATORYCLIA [id number] [place] [address] [place] Neutrophils (Bld) [#/Vol] 2.47 10*3/uL Normal 1.45-7.50 [facility] Comment on above: Order Comment: Speci men Type: BLOOD SPECIMENOrdering Facility: [facility] Address: [address] [address] Performed By: #### 5 7021-8 ####[facility] LABORATORYCLIA [id number] [address] [place] Neutrophils/100 WBC (Bld) 70.7 % Normal [facility] Comment on above: Order Comment: Speci men Type: BLOOD SPECIMENOrdering Facility: [facility] Address: [address] [place] [address] Performed By: #### 5 7021-8 ####[facility] LABORATORYCLIA [id number] [place] [address] [place] Nucleated RBC (Bld) [#/Vol] 10*3/uL Normal <0.01 [facility] Comment on above: Order Comment: Speci men Type: BLOOD SPECIMENOrdering Facility: [facility] Address: [address] [place] [address] Performed By: #### 5 7021-8 ####[facility] LABORATORYCLIA [id number] [place] [address] [place] Nucleated RBC/100 WBC (Bld) [Ratio] 0.0 /100 WBC Normal [facility] Comment on above: Order Comment: Speci men Type: BLOOD SPECIMENOrdering Facility: [facility] Address: [address] [place] [address] Performed By: #### 5 7021-8 ####[facility] LABORATORYCLIA [id number] [place] [address] [place] Platelet mean volume (Bld) [Entitic vol] 10.8 fL Normal 9.0-12.7 [facility] Comment on above: Order Comment: Speci men Type: BLOOD SPECIMENOrdering Facility: [facility] Address: [address] [place] [address] Performed By: #### 5 7021-8 ####[facility] LABORATORYCLIA [id number] [place] [address] [place] Platelets (Bld) [#/Vol] 139 10*3/uL Low 150-400 [facility] Comment on above: Order Comment: Speci men Type: BLOOD SPECIMENOrdering Facility: [facility] Address: [address] [place] [address] Result Comment: No c lot detected. Performed By: #### 5 7021-8 ####[facility] LABORATORYCLIA [id number] [place] [address] [place] RBC (Bld) [#/Vol] 4.45 10*6/uL Normal 4.20-6.00 [facility] Comment on above: Order Comment: Speci men Type: BLOOD SPECIMENOrdering Facility: [facility] Address: [address] [address] Performed By: #### 5 7021-8 ####[facility] LABORATORYCLIA [id number] [place] [address] [place] WBC (Bld) [#/Vol] 3.49 10*3/uL Low 3.70-11.00 [facility] Comment on above: Order Comment: Speci men Type: BLOOD SPECIMENOrdering Facility: [facility] Address: [address] [address] Performed By: #### 5 7021-8 ####[facility] LABORATORYCLIA [id number] [address] [id number] [facility] CTA ABD/PELV W IVCONon 05-20 CTA ABD/PELV [...] for aortic dissection. Contrast: IV 130 (accession [id number]), 120 (accession [id number]) ml of Omnipaque 350 CT Radiation dose: [...] IVCON TimeFrame: 6-12 weeks --END OF FINDING-- Assistant Restaurant General Manager: AGUEDA Transcribe Date/Time: May 20 2023 12:09P Dictated by : AMANDA HUTSON MD This examination was interpreted and the report reviewed and electronically signed by: AMANDA HUTSON MD on May 20 2023 12:20PM EST [id number] Normal [facility] CTA CHEST (GATED) WO/W IVCON on [...] for aortic dissection. Contrast: IV 130 (accession [id number]), 120 (accession [id number]) ml of Omnipaque 350 CT Radiation dose: [...] IVCON TimeFrame: 6-12 weeks --END OF FINDING-- Assistant Restaurant General Manager: AGUEDA Transcribe Date/Time: May 20 2023 12:09P Dictated by : AMANDA HUTSON MD This examination was interpreted and the report reviewed and electronically signed by: AMANDA HUTSON MD on May 20 2023 12:20PM EST [id number] Normal [facility] Comprehensive metabolic 2000 panelon 05-20-2023 Albumin [Mass/Vol] 4.4 g/dL Normal 3.9-4.9 [facility] Comment on above: Order Comment: Speci men Type: BLOOD SPECIMENOrdering Facility: [facility] Address: [address] [place] [address] Performed By: #### 2 4323-8, [id number], 3040-3 ####[facility] LABORATORYCLIA [id number] [place] [address] [place] ALP [Catalytic activity/Vol] 74 U/L Normal 38-113 [facility] Comment on above: Order Comment: Speci men Type: BLOOD SPECIMENOrdering Facility: [facility] Address: [address] [place] [address] Performed By: #### 2 4323-8, [id number], 3040-3 ####[facility] LABORATORYCLIA [id number] [place] [address] [place] ALT [Catalytic activity/Vol] 21 U/L Normal 10-54 [facility] Comment on above: Order Comment: Speci men Type: BLOOD SPECIMENOrdering Facility: [facility] Address: [address] [place] [address] Performed By: #### 2 4323-8, [id number], 0-3 ####[facility] LABORATORYCLIA [id number] [place] [address] [place] Anion gap [Moles/Vol] 13 mmol/L Normal 9-18 [facility] Comment on above: Order Comment: Speci men Type: BLOOD SPECIMENOrdering Facility: [facility] Address: [address] [place] [address] Performed By: #### 2 4323-8, [id number], 3040-3 ####[facility] LABORATORYCLIA [id number] [place] [address] [place] AST [Catalytic activity/Vol] Normal [facility] Comment on above: Order Comment: Speci men Type: BLOOD SPECIMENOrdering Facility: [facility] Address: [address] [place] [address] Result Comment: Unab le to assay due to interference from hemolysis. Suggest reorder as clinically indicated. Performed By: #### 2 4323-8, [id number], 3040-3 ####[facility] LABORATORYCLIA [id number] [place] [address] [place] Bilirubin [Mass/Vol] 0.2 mg/dL Normal 0.2-1.3 [facility] Comment on above: Order Comment: Speci men Type: BLOOD SPECIMENOrdering Facility: [facility] Address: [address] [address] Performed By: #### 2 4323-8, [id number], 3040-3 ####[facility] LABORATORYCLIA [id number] [address] [place] [id number] [place] Calcium [Mass/Vol] 8.7 mg/dL Normal 8.5-10.2 [facility] Comment on above: Order Comment: Speci men Type: BLOOD SPECIMENOrdering Facility: [facility] Address: [address] [address] Performed By: #### 2 4323-8, [id number], 0-3 ####[facility] LABORATORYCLIA [id number] [place] [address] [place] Chloride [Moles/Vol] 102 mmol/L Normal 97-105 [facility] Comment on above: Order Comment: Speci men Type: BLOOD SPECIMENOrdering Facility: [facility] Address: [address] [address] Performed By: #### 2 4323-8, [id number], 0-3 ####[facility] LABORATORYCLIA [id number] [place] [address] [place] CO2 [Moles/Vol] 26 mmol/L Normal 22-30 [facility] Comment on above: Order Comment: Speci men Type: BLOOD SPECIMENOrdering Facility: [facility] Address: [address] [address] Performed By: #### 2 4323-8, [id number], 3040-3 ####[facility] LABORATORYCLIA [id number] [address] [place] [id number] [place] Creatinine [Mass/Vol] 1.10 mg/dL Normal 0.73-1.22 [facility] Comment on above: Order Comment: Speci men Type: BLOOD SPECIMENOrdering Facility: [facility] Address: [address] [address] Performed By: #### 2 4323-8, [id number], 3040-3 ####[facility] LABORATORYCLIA [id number] [address] [place] [id number] [place] Creatinine and Glomerular filtration rate.predicted panel (S/P/Bld) 81 mL/min/1.73m??? Normal >=60 [facility] Comment on above: Order Comment: Ariella lucero Type: BLOOD SPECIMENOrdering Facility: [facility] Address: [address] [place] [address] Result Comment: Nikole mated Glomerular Filtration Rate [...] actual GFR. Performed By: #### 2 4323-8, [id number], 3040-3 ####[facility] LABORATORYCLIA [id number] [place] [address] [place] Glucose [Mass/Vol] 108 mg/dL High 74-99 [facility] Comment on above: Order Comment: Ariella lucero Type: BLOOD SPECIMENOrdering Facility: [facility] Address: [address] [place] [address] Result Comment: The [place] Diabetes [employer] (ADA) provides guidance for cutoff [...] Standards of Medical Care in Diabetes 2016, [place] [employer]. Diabetes Care. 2016.39(Suppl 1). Performed By: #### 2 4323-8, [id number], 3040-3 ####[facility] LABORATORYCLIA [id number] [place] [address] [place] Potassium [Moles/Vol] 4.1 mmol/L Normal 3.7-5.1 [facility] Comment on above: Order Comment: Speci men Type: BLOOD SPECIMENOrdering Facility: [facility] Address: [address] [place] [address] Performed By: #### 2 4323-8, [id number], 3040-3 ####[facility] LABORATORYCLIA [id number] [place] [address] [place] Protein [Mass/Vol] 7.0 g/dL Normal 6.3-8.0 [facility] Comment on above: Order Comment: Speci men Type: BLOOD SPECIMENOrdering Facility: [facility] Address: [address] [place] [address] Performed By: #### 2 4323-8, [id number], 0-3 ####[facility] LABORATORYCLIA [id number] [place] [address] [place] Sodium [Moles/Vol] 141 mmol/L Normal 136-144 [facility] Comment on above: Order Comment: Speci men Type: BLOOD SPECIMENOrdering Facility: [facility] Address: [address] [place] [address] Performed By: #### 2 4323-8, [id number], 3040-3 ####[facility] LABORATORYCLIA [id number] [place] [address] [place] Urea nitrogen [Mass/Vol] 15 mg/dL Normal 9-24 [facility] Comment on above: Order Comment: Speci men Type: BLOOD SPECIMENOrdering Facility: [facility] Address: [address] [place] [address] Performed By: #### 2 4323-8, [id number], 3040-3 ####[facility] LABORATORYCLIA [id number] [place] [id number] [place] ECG COMPLETEon 05-20-2023 ECG COMPLETE Ventricular Rate : 8 1 BPM Atrial Rate : 80 BPM P-R Interval : 178 ms QRS Duration : 102 ms Q-T Interval : 353 ms QTC Calculation(Bazett) : 410 ms Calculated P Wren : 26 degrees Calculated R Wren : -28 degrees Calculated T Wren : 0 degrees Sinus rhythm Left ventricular hypertrophy Abnormal ECG see epic note pr Dr Lily Rodriguez about this ekg Confirmed by MD RODRIGUEZ MICHAEL ([id number]), publication editor ELENI LERNER ([id number]) on 06/13/2023 11:33:48 AM NAME : HOSEA ALVAREZ PID : [id number] : 1970 Gender : Male Race : ORD : [id number] Procedure Date : May 20 2023 07:53:32 Edit Date : Jun 13 2023 11:33:50 Diagnosis: Sinus rhythm Left ventricular hypertrophy Abnormal ECG see epic note pr Dr Lily Rodriguez about this ekg Confirmed by MD RODRIGUEZ MICHAEL ([id number]), publication editor ELENI LERNER ([id number]) on 06/13/2023 11:33:48 AM Test Reason : Pre-OP Location : 402 : [place] Overread By : MD RODRIGUEZ MICHAEL Edited By : ELENI LERNER Referred By : , Acquired by : SIOBHAN [facility] ED NOTEon 05-20-2023 ED NOTE HNO ID: [id number] Author: Jacey Hansen RN Service: ? Author Type: Registered Nurse Type: ED Notes Filed: 05/20/2023 3:14 PM Note Text: Spoke with at this time. Notified him of most recent pressure post BP meds given of 165/109. Per ok to D/C pt at this time. [facility] ED NOTE HNO ID: [id number] Author: Shayy Oneal RN Service: ? Author Type: Registered Nurse Type: ED Notes Filed: 05/20/2023 12:13 PM Note Text: notified of pt's blood pressure at this time [facility] ED PROV NOTEon 05-20-2023 ED PROV NOTE HNO ID: [id number] Author: Lily Rodriguez MD Service: ? Author [...] Allergen Reactions Caffeine Rash Other reaction(s): Shakiness [place] [facility] Upset, Rash, Vomiting Statused by Person: Tammy. Derrick(Altaf Meza2) on Statused by Person: SRAVANTHI MONGE([facility]) on Statused by Person: Tammy. Derrick(T Brittaer2) on Statused by Person: SRAVANTHI MONGE(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 Ne (more content not included)... Normal [facility] EKGon 05-20-2023 Electrocardiogram Ventricular Rate : 8 2 BPM Atrial Rate : 82 BPM P-R Interval : 168 ms QRS Duration : 102 ms Q-T Interval : 379 ms QTC Calculation(Bazett) : 443 ms Calculated P Wren : 40 degrees Calculated R Wren : 10 degrees Calculated T Wren : -2 degrees Sinus rhythm Probable anterolateral infarct, old Borderline T abnormalities, inferior leads Abnormal ECG NO STEMI. Confirmed by DEVYN PRUITT DO ([id number]), publication editor HELGA GILMORE ([id number]) on 05/20/2023 11:09:02 AM NAME : HOSEA ALVAREZ PID : [id number] : 1970 Gender : Male Race : ORD : Procedure Date : May 20 2023 02:30:40 Edit Date : May 20 2023 11:09:03 Diagnosis: Sinus rhythm Probable anterolateral infarct, old Borderline T abnormalities, inferior leads Abnormal ECG NO STEMI. Confirmed by DEVYN PRUITT DO ([id number]), publication editor HELGA GILMORE ([id number]) on 05/20/2023 11:09:02 AM Test Reason : Location : 402 : [place] Overread By : DEVYN PRUITT DO Edited By : HELGA GILMORE Referred By : , Acquired by : [id number], Normal [facility] HIGH SENSITIVITY TROPONIN T (INITIAL)on 05-20-2023 Troponin T.cardiac High sensitivity method [Mass/Vol] 8 ng/L Normal <12 [facility] Comment on above: Order Comment: Speci men Type: BLOOD SPECIMENOrdering Facility: [facility] Address: [place] [address] Result Comment: When assessing risk for acute [...] day MACE. Performed By: #### 2 4323-8, [id number], 3040-3 ####[facility] LABORATORYCLIA [id number] [address] [place] HIGH SENSITIVITY TROPONIN T (SECOND)on 05-20-2023 Troponin T.cardiac High sensitivity method [Mass/Vol] 8 ng/L Normal <12 [facility] Comment on above: Order Comment: Speci men Type: BLOOD SPECIMEN Ordering Facility: [facility] Address: [address] [address] Result Comment: When assessing risk for acute [...] 30 day MACE. Performed By: #### L [id number] #### [facility] CLIA [id number] [place] Lipase SerPl-cCncon 05-20-20 23 Lipase [Catalytic activity/Vol] 23 U/L Normal 16-61 [facility] Comment on above: Order Comment: Ariella men Type: BLOOD SPECIMENOrdering Facility: [facility] Address: [address] [address] Performed By: #### 2 4323-8, [id number], 3040-3 ####[facility] LABORATORYCLIA [id number] [address] [place] Urinalysis complete panel (U )on 05-20-2023 Bilirubin Ql (U) Negative Normal Negative [facility] Comment on above: Order Comment: Speci men Type: URINE SPECIMEN Ordering Facility: [facility] Address: [address] [place] [address] Performed By: #### 2 4356-8 #### [facility] CLIA [id number] [place] Clarity (Unsp spec) Clear Normal Clear [facility] Comment on above: Order Comment: Speci men Type: URINE SPECIMEN Ordering Facility: [facility] Address: [address] [place] [address] Performed By: #### 2 4356-8 #### [facility] CLIA [id number] [address] [place] [address] [place] Color (U) Light Yellow Normal Yellow [facility] Comment on above: Order Comment: Speci men Type: URINE SPECIMEN Ordering Facility: [facility] Address: [address] [place] [address] Performed By: #### 2 4356-8 #### [facility] CLIA [id number] [address] [place] [address] [place] Glucose Test strip (U) [Mass/Vol] Negative Normal Trace, Negative [facility] Comment on above: Order Comment: Speci men Type: URINE SPECIMEN Ordering Facility: [facility] Address: [address] [place] [address] Performed By: #### 2 4356-8 #### [facility] CLIA [id number] [address] [place] [address] [place] Hemoglobin Ql (U) Negative Normal Negative, Trace [facility] Comment on above: Order Comment: Speci men Type: URINE SPECIMEN Ordering Facility: [facility] Address: [address] [place] [address] Performed By: #### 2 4356-8 #### [facility] CLIA [id number] [address] [place] [address] [place] Ketones Ql (U) Negative Normal Negative, Trace [facility] Comment on above: Order Comment: Speci men Type: URINE SPECIMEN Ordering Facility: [facility] Address: [address] [place] [address] Performed By: #### 2 4356-8 #### [facility] CLIA [id number] [address] [place] [address] [place] Leukocyte esterase Test strip Ql (U) Negative Normal Negative, 25 Sheba/uL [facility] Comment on above: Order Comment: Speci men Type: URINE SPECIMEN Ordering Facility: [facility] Address: [address] [place] [address] Performed By: #### 2 4356-8 #### [facility] CLIA [id number] [address] [place] [address] [place] Nitrite Ql (U) Negative Normal Negative [facility] Comment on above: Order Comment: Speci men Type: URINE SPECIMEN Ordering Facility: [facility] Address: [address] [place] [address] Performed By: #### 2 4356-8 #### [facility] CLIA [id number] [address] [place] [address] [place] pH (U) 6.5 [pH] Normal 5.0-8.0 [facility] Comment on above: Order Comment: Speci men Type: URINE SPECIMEN Ordering Facility: [facility] Address: [address] [place] [address] Performed By: #### 2 4356-8 #### [facility] CLIA [id number] [address] [place] [address] Protein (U) [Mass/Vol] Trace Normal Trace, Negative [facility] Comment on above: Order Comment: Speci men Type: URINE SPECIMEN Ordering Facility: [facility] Address: [address] [place] [address] Performed By: #### 2 4356-8 #### [facility] CLIA [id number] [address] [place] [address] [place] RBC LM.HPF (Urine sed) [#/Area] 0-3 /HPF Normal 0-3 /HPF [facility] Comment on above: Order Comment: Speci men Type: URINE SPECIMEN Ordering Facility: [facility] Address: [address] [place] [address] Performed By: #### 2 4356-8 #### [facility] CLIA [id number] [address] [place] [address] [place] Specific gravity (U) [Rel density] 1.013 Normal 1.005-1.030 [facility] Comment on above: Order Comment: Speci men Type: URINE SPECIMEN Ordering Facility: [facility] Address: [address] [address] Performed By: #### 2 4356-8 #### [facility] CLIA [id number] [address] [place] [address] [place] Urobilinogen Ql (U) Negative Normal Negative [facility] Comment on above: Order Comment: Speci men Type: URINE SPECIMEN Ordering Facility: [facility] Address: [address] [address] Performed By: #### 2 4356-8 #### [facility] CLIA [id number] [address] [place] [address] [place] WBC LM.HPF (Urine sed) [#/Area] 0-5 /HPF Normal 0-5 /HPF [facility] Comment on above: Order Comment: Speci men Type: URINE SPECIMEN Ordering Facility: [facility] Address: [address] [address] Performed By: #### 2 4356-8 #### [facility] CLIA [id number] [address] [place] [address] [place] XR CHEST 1V [...] is unremarkable. IMPRESSION: No acute cardiopulmonary process. Assistant Restaurant General Manager: PSCB Transcribe Date/Time: May 20 2023 10:05A Dictated by : RAMIN CROCKETT MD This examination was interpreted and the report reviewed and electronically signed by: RAMIN CROCKETT MD on May 20 2023 10:05AM EST [id number] Normal [facility] ED NOTEon 05-18-2023 ED NOTE HNO ID: [id number] Author: Luís Monroy RN Service: ? Author [...] All belongings with patient. Pt departed ED. [facility] ED NOTE HNO ID: [id number] Author: Luís Monroy RN Service: ? Author Type: Registered Nurse Type: ED Notes Filed: 05/18/2023 7:50 PM Note Text: Pt talking to RN, asking what nationality she is. Pt states you don't have a big butt like most Hispanics I know. [facility] ED NOTE HNO ID: [id number] Author: Tere Williamson RN Service: ? Author Type: Registered Nurse Type: ED Notes Filed: 05/18/2023 6:18 PM Note Text: Patient to the ED with c/o R toe pain. States infection however upon assessment appears to be a corn/callus which he has on multiple toes. No redness or erythema. [facility] ED PROV NOTEon 05-18-2023 ED PROV NOTE HNO ID: [id number] Author: Liam Pham MD Service: Emergency Medicine [...] Allergen Reactions Caffeine Rash Other reaction(s): Shakiness [place] [facility] Upset, Rash, Vomiting Statused by Person: Imelda Meza.(T Carter2) on Statused by Person: SRAVANTHI MONGE([facility]) on Statused by Person: Imelda Meza.(T Carter2) on Statused by Person: SRAVANTHI MONGE(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 Provider Location: [facility] Patient Location: Outpatient Hospital Physical Exam Vitals [...] the patient o (more content not included)... [facility] URINE CULTUREon 05-14-2023 Bacteria identified Cx Nom (U) Specimen source XXX: CLEAN VOIDED MIDSTREAM Performed at [address] [address] Service Cmnt XXX-Imp: NONE Performed at [address] [address] CC Number Ur: <10,000 CFU/ml Bacteria identified: STAPHYLOCOCCUS AUREUS NO FURTHER WORK-UP. Performed at [address] [address] : FINAL 05/14/2023 [facility] Comment on above: Performed By: #### E JOHN #### Main Laboratory [address] [id number] ADD ON LAB REQUESTon 023 ADD ON REQUEST Normal [facility] Comment on above: Result Comment: ZAHIRA Kline [place] Performed at [address] [address] Performed By: #### A DDON #### [facility] [place] [address] ADD ON TESTS MG Normal [facility] Comment on above: Performed By: #### A DDON #### [facility] [place] [address] ALCOHOL (ETHYL)on 05-11-2023 ALCOHOL (ETHYL) Normal 0-0.010 [facility] Comment on above: Result Comment: <0.0 10 Performed at [address] [address] Performed By: #### E JOHN #### [facility] [address] [address] Alcoholon 05-11-2023 Ethanol [Mass/Vol] mg/dL [facility] Comment on above: Performed at [address] [address] B Natriuretic Peptideon 04-23 Natriuretic peptide.B prohormone N-Terminal [Mass/Vol] 36 PG/ML 0 - 138 PG/ML [facility] Comment on above: LESS THAN RESULT CHECKED Reference ranges are based on clinical submission data. These ranges represent the 95th percentile of normal cut-off points. As NT pro-BNP values approach 1000 pg/ml, clinical symptoms are more likely associated with CHF. Performed at [address] [address] Bacteria identified Cx Nom ( U)on 05-11-2023 Bacteria identified Cx Nom (Unsp spec) STAPHYLOCOCCUS AUREUS NO FURTHER WORK-UP. Performed at [address] [place] count (U) [#/Vol] <10,000 CFU/ml [facility] REPORT STATUS -[facility] DATA CONVERSION FINAL 05/14/2023 [facility] Service comment (Unsp spec) [Interp] NONE Performed at [address] [place] [address] [facility] Specimen source Nom (Unsp spec) CLEAN VOIDED MIDSTREAM Performed at [address] [address] [facility] CBC W Differential panel, me thod unspecified (Bld)on 05-11-2023 Basophils (Bld) [#/Vol] 0.01 10*3/uL [facility] Basophils/100 WBC (Bld) 0.30 % 0 - 1 % [facility] Differential cell count method Nom (Bld) AUTO DIFF [facility] Eosinophils (Bld) [#/Vol] 0.09 10*3/uL [facility] Eosinophils/100 WBC (Bld) 2.70 % 0 - 3 % [facility] Erythrocyte distribution width (RBC) [Entitic vol] 39.0 fL [facility] Erythrocyte distribution width (RBC) [Ratio] 12.5 % 11.7 - 15.0 % [facility] Hematocrit (Bld) [Volume fraction] 39.4 % Low 41 - 50 % [facility] Hemoglobin (Bld) [Mass/Vol] 13.4 g/dL Low [facility] Immature granulocytes (Bld) [#/Vol] 0.01 10*3/uL [facility] Interpretation and review of laboratory results Abnormal [facility] Lymphocytes (Bld) [#/Vol] 0.99 10*3/uL Low [facility] Lymphocytes/100 WBC (Bld) 29.50 % 20 - 40 % [facility] MCH (RBC) [Entitic mass] 29.5 pg 26 - 34 PG [facility] MCHC (RBC) [Mass/Vol] 34.0 % 31 - 37 % [facility] MCV (RBC) [Entitic vol] 86.8 fL [facility] Monocytes (Bld) [#/Vol] 0.26 10*3/uL [facility] Monocytes/100 WBC (Bld) 7.70 % 0 - 8 % [facility] Neutrophils (Bld) [#/Vol] 2.00 10*3/uL K/UL [facility] Comment on above: Performed at [address] [place] [address] Neutrophils.immature/ 100 WBC (Bld) 0.30 % 0.0 - 1.0 % [facility] Nucleated RBC/100 WBC (Bld) [Ratio] 0 % 0 /100 WBC [facility] Platelet mean volume (Bld) [Entitic vol] 11.1 fL [facility] Platelets (Bld) [#/Vol] 133 10*3/uL [facility] Comment on above: SAMPLE INTEGRITY [place] CKED CONSISTENT WITH PERIPHERAL SMEAR RESULT CHECKED RBC (Bld) [#/Vol] 4.54 10*6/uL [facility] Segmented neutrophils/100 WBC (Bld) 59.50 % 50 - 70 % [facility] WBC (Bld) [#/Vol] 3.2 10*3/uL [facility] CBC with Diffon 05-11-2023 AB IMMATURE NEUT 0.01 K/UL Normal 0.0-0.1 [facility] Comment on above: Performed By: #### E JOHN #### [facility] [address] [address] ABS BASO 0.01 K/UL Normal 0.00-0.22 [facility] Comment on above: Performed By: #### E JOHN #### [facility] [address] [address] ABS EOS 0.09 K/UL Normal 0-0.45 [facility] Comment on above: Performed By: #### E JOHN #### [facility] [address] [address] ABS NEUTROPHILS 2.00 K/UL Normal 1.8-7.7 [facility] Comment on above: Performed By: #### E JOHN #### [facility] [address] [address] ABS.NEUT.CALCULATED 2.00 K/UL Normal [facility] Comment on above: Result Comment: Perf ormed at [address] [place] [address] Performed By: #### E JOHN #### [facility] [address] [address] Basophils/100 WBC (Bld) 0.30 % Normal 0-1 [facility] Comment on above: Performed By: #### E JOHN #### [facility] [address] [place] [address] DIFF TYPE AUTO DIFF Normal [facility] Comment on above: Performed By: #### E JOHN #### [facility] [address] [place] [address] Eosinophils/100 WBC (Bld) 2.70 % Normal 0-3 [facility] Comment on above: Performed By: #### E JOHN #### [address] [address] [place] [address] Erythrocyte distribution width (RBC) [Ratio] 12.5 % Normal 11.7-15.0 [facility] Comment on above: Performed By: #### E JOHN #### [address] [address] [place] [address] Hematocrit (Bld) [Volume fraction] 39.4 % Low 41-50 [facility] Comment on above: Performed By: #### E JOHN #### [address] [address] [place] [address] Hemoglobin (Bld) [Mass/Vol] 13.4 g/dL Low 13.5-16.5 [facility] Comment on above: Performed By: #### E JOHN #### [address] [address] [place] [address] Lymphocytes (Bld) [#/Vol] 0.99 10*3/uL Low 1.2-3.2 [facility] Comment on above: Performed By: #### E JOHN #### [facility] [address] [place] [address] Lymphocytes/100 WBC (Bld) 29.50 % Normal 20-40 [facility] Comment on above: Performed By: #### E JOHN #### [facility] [address] [place] [address] MCH (RBC) [Entitic mass] 29.5 pg Normal 26-34 [facility] Comment on above: Performed By: #### E JOHN #### [facility] [address] [address] [place] [address] MCHC 34.0 % Normal 31-37 [facility] Comment on above: Performed By: #### E JOHN #### [facility] [address] [address] [place] [address] MCV (RBC) [Entitic vol] 86.8 fL Normal 80-100 [facility] Comment on above: Performed By: #### E JOHN #### [facility] [address] [address] [place] [address] MEAN PLT VOL 11.1 CU Normal 7.0-12.6 [facility] Comment on above: Performed By: #### E JOHN #### [address] [address] [place] [address] Monocytes (Bld) [#/Vol] 0.26 10*3/uL Normal 0-0.8 [facility] Comment on above: Performed By: #### E JOHN #### [address] [address] [place] [address] Monocytes/100 WBC (Bld) 7.70 % Normal 0-8 [facility] Comment on above: Performed By: #### E JOHN #### [address] [address] [place] [address] Neutrophils/100 WBC (Bld) 0.30 % Normal 0.0-1.0 [facility] Comment on above: Performed By: #### E JOHN #### [address] [address] [place] [address] Neutrophils/100 WBC (Bld) 59.50 % Normal 50-70 [facility] Comment on above: Performed By: #### E JOHN #### [facility] [address] [address] [place] [address] NRBC'S 0 /100 WBC Normal 0 [facility] Comment on above: Performed By: #### E JOHN #### [facility] [address] [address] [place] [address] Platelets (Bld) [#/Vol] 133 10*3/uL Low 150-450 [facility] Comment on above: Result Comment: SAMP LE INTEGRITY CHECKED CONSISTENT WITH PERIPHERAL SMEAR RESULT CHECKED Performed By: #### E JOHN #### [facility] [address] [place] [address] RBC (Bld) [#/Vol] 4.54 10*6/uL Normal 4.5-5.5 [facility] Comment on above: Performed By: #### E JOHN #### [facility] [address] [address] [place] [address] RDW-SD 39.0 FL Normal 37.0-54.0 [facility] Comment on above: Performed By: #### E JOHN #### [facility] [address] [address] [place] [address] WBC (Bld) [#/Vol] 3.2 10*3/uL Low 4.5-11.0 [facility] Comment on above: Performed By: #### E JOHN #### [address] [address] [place] [address] CHEST 2 VIEWon 05-11-2023 CHEST 2 VIEW *FINAL Date of Service: 05/11/2023 15:46 Adm #: [id number] Reading Dr:TARAN PINA Signoff Dr: TARAN PINA PROCEDURE: CHEST 2 VIEW - WXR 0020 REASON FOR EXAM: Palpitations RESULT: Patient Name: HOSEA ALVAREZ STUDY: CHEST 2 VIEW 05/11/2023 3:46 pm INDICATION: Palpitations COMPARISON: 01/29/2023 ACCESSION NUMBER(S): [id number] ORDERING CLINICIAN: THALIA ROBERTO TECHNIQUE: Two views chest FINDINGS: Cardiomediastinal silhouette is mildly enlarged. Aorta is tortuous. No infiltrate or effusion identified. Mild multilevel anterior osteophyte formation midthoracic spine. No compression deformity demonstrated. IMPRESSION: No acute cardiopulmonary process. Dictation workstation: [id number] Original Interpreting Physician: TARAN PINA MD Original Transcribed by/Date: MMODAL May 11 2023 3:18P Original Electronically Signed by/Date: TARAN PINA MD May 11 2023 3:59P Addendum Interpreting Physician: Addendum Transcribed by/Date: NO ADDENDUM Addendum Electronically Signed by/Date: Normal [facility] COMPREHENSIVE METABOLIC PANE Bart 05-11-2023 Albumin [Mass/Vol] 4.1 g/dL Normal 3.5-5.0 [facility] Comment on above: Performed By: #### E JOHN #### [facility] [address] [place] [address] Albumin/Globulin [Mass ratio] 1.5 {ratio} Normal 1.5-3.0 [facility] Comment on above: Performed By: #### E JOHN #### [facility] [address] [place] [address] ALP [Catalytic activity/Vol] 63 U/L Normal 35-125 [facility] Comment on above: Performed By: #### E JOHN #### [facility] [address] [place] [address] ALT [Catalytic activity/Vol] 24 U/L Normal 5-40 [facility] Comment on above: Performed By: #### E JOHN #### [facility] [address] [place] [address] Anion gap [Moles/Vol] 8 mmol/L Normal 0-19 [facility] Comment on above: Performed By: #### E JOHN #### [facility] [address] [place] [address] AST [Catalytic activity/Vol] 17 U/L Normal 5-40 [facility] Comment on above: Performed By: #### E JOHN #### [facility] [address] [place] [address] Bilirubin [Mass/Vol] 0.3 mg/dL Normal 0.1-1.2 [facility] Comment on above: Performed By: #### E JOHN #### [facility] [address] [place] [address] Calcium [Mass/Vol] 9.2 mg/dL Normal 8.5-10.4 [facility] Comment on above: Performed By: #### E JOHN #### Main Laboratory [facility] [address] [place] [address] Chloride [Moles/Vol] 105 mmol/L Normal 97-107 [facility] Comment on above: Performed By: #### E JOHN #### [facility] [address] [place] [address] CO2 [Moles/Vol] 27 mmol/L Normal 24-31 [facility] Comment on above: Performed By: #### E JOHN #### [facility] [address] [place] [address] Creatinine [Mass/Vol] 1.2 mg/dL Normal 0.4-1.6 [facility] Comment on above: Performed By: #### E JOHN #### [address] [address] [place] [address] ESTIMATED GFR 73 mL/min/1.73 m2 Normal [facility] Comment on above: Result Comment: CALCULATIONS OF ESTIMATED GFR ARE PERFORMED USING THE 2020 CKD-EPI STUDY REFIT EQUATION WITHOUT THE RACE VARIABLE FOR THE IDMS-TRACEABLE CREATININE METHODS. https://jasn.asnjournals.org/content//ASN.098035 4522 Performed at [address] [place] [address] Performed By: #### E JOHN #### [address] [address] Globulin (S) [Mass/Vol] 2.7 g/dL Normal 1.9-3.7 [facility] Comment on above: Performed By: #### E JOHN #### [facility] [address] [place] [address] Glucose [Mass/Vol] 86 mg/dL Normal 65-99 [facility] Comment on above: Performed By: #### E JOHN #### [facility] [address] [place] [address] Potassium [Moles/Vol] 3.8 mmol/L Normal 3.4-5.1 [facility] Comment on above: Performed By: #### E JOHN #### [facility] [address] [place] [address] Protein [Mass/Vol] 6.8 g/dL Normal 5.9-7.9 [facility] Comment on above: Performed By: #### E JOHN #### Main Laboratory [facility] [address] [place] [address] Sodium [Moles/Vol] 140 mmol/L Normal 133-145 [facility] Comment on above: Performed By: #### E JOHN #### Main Laboratory [facility] [address] [place] [address] Urea nitrogen [Mass/Vol] 17 mg/dL Normal 8-25 [facility] Comment on above: Performed By: #### E JOHN #### Main Laboratory [facility] [address] [place] [address] Urea nitrogen/Creatinine [Mass ratio] 14.2 mg/mg Normal 8-21 [facility] Comment on above: Performed By: #### E JOHN #### [facility] [address] [address] Comprehensive metabolic 2000 panelon 05-11-2023 Albumin [Mass/Vol] 4.1 g/dL [facility] Albumin/Globulin [Mass ratio] 1.5 {ratio} [facility] ALP (Bld) [Catalytic activity/Vol] 63 U/L 35 - 125 U/L [facility] ALT [Catalytic activity/Vol] 24 U/L 5 - 40 U/L [facility] Anion gap [Moles/Vol] 8 mmol/L [facility] AST [Catalytic activity/Vol] 17 U/L 5 - 40 U/L [facility] Bilirubin [Mass/Vol] 0.3 mg/dL [facility] Calcium [Mass/Vol] 9.2 mg/dL [facility] Chloride [Moles/Vol] 105 mmol/L [facility] CO2 [Moles/Vol] 27 mmol/L [facility] Creatinine [Mass/Vol] 1.2 mg/dL [facility] GFR/1.73 sq M.predicted MDRD (S/P/Bld) [Vol rate/Area] 73 mL/min/{1.73_m2} mL/min/1.73 m2 [facility] Comment on above: CALCULATIONS OF NIKOLE MATED GFR ARE PERFORMED USING THE 2021 CKD-EPI STUDY REFIT EQUATION WITHOUT THE RACE VARIABLE FOR THE IDMS-TRACEABLE CREATININE METHODS. https://jasn.asnjournals.org/content//ASN.971996 9353 Performed at [place] [address] Globulin (S) [Mass/Vol] 2.7 g/dL [facility] Glucose [Mass/Vol] 86 mg/dL [facility] Potassium [Moles/Vol] 3.8 mmol/L [facility] Protein [Mass/Vol] 6.8 g/dL [facility] Sodium [Moles/Vol] 140 mmol/L [facility] Urea nitrogen [Mass/Vol] 17 mg/dL [facility] Urea nitrogen/Creatinine [Mass ratio] 14.2 mg/mg [facility] D-DIMERon 05-11-2023 D-DIMER 0.28 MG/L FEU Normal 0.19-0.50 [facility] Comment on above: Result Comment: THROMBOEMBOLIC [...] IN PATIENTS RECEIVING ANTI-COAGULATION THERAPY. Performed at [place] [id number] Performed By: #### U ACUL #### Main Laboratory [address] [address] D-Dimer, VTE Exclusionon Fibrin D-dimer FEU (PPP) [Mass/Vol] 0.28 [facility] Comment on above: THROMBOEMBOLIC EVENT [...] IN PATIENTS RECEIVING ANTI-COAGULATION THERAPY. Performed at [place] [address] DRUG SCREEN,URINEon 05-11-20 Amphetamines Screen method >1000 ng/mL Ql (U) Negative [facility] Barbiturates Screen method >300 ng/mL Ql (U) Negative [facility] Benzodiazepines Screen method >300 ng/mL Ql (U) Negative [facility] Benzoylecgonine Screen method >300 ng/mL Ql (U) Negative [facility] Cannabinoids Screen method >50 ng/mL Ql (U) Negative [facility] Drug screen comment (U) [Interp] [...] ng/ml OXYCODONE 100 ng/ml FENTANYL 5 ng/ml [facility] fentaNYL+Norfentanyl Screen Ql (U) NEGATIVE Performed at [address] [address] [facility] Methadone Ql (U) Negative [facility] Opiates Screen method >300 ng/mL Ql (U) Negative [facility] oxyCODONE Ql (U) Negative [facility] Phencyclidine Screen method >25 ng/mL Ql (U) Negative [facility] EKGon 05-11-2023 Electrocardiogram EKG Ventricular Rate : 67 BPM Atrial Rate : 67 BPM P-R Interval : 190 ms QRS Duration : 100 ms Q-T Interval : 364 ms QTC Calculation(Bazett) : 384 ms Calculated P Wren : 36 degrees Calculated R Wren : -4 degrees Calculated T Wren : 14 degrees Diagnosis:Normal sinus rhythm Normal ECG When compared with ECG of 22-JAN-2023 18:34, No significant change was found Confirmed by CHERYL CULLEN ([id number]) on 05/14/2023 3:44:16 PM Normal [facility] Fibrin D-dimer FEU (PPP) [Ma ss/Vol]on 05-11-2023 [facility] HS TROPONIN Ton 05-11-2023 HS TROPONIN T DELTA 1 Normal 0-4 [facility] Comment on above: Result Comment: Perf ormed at [place] [address] Performed By: #### H STROP #### Main Laboratory [address] [address] HS TROPONIN T,GEN 5 7 NG/L Normal <15 [facility] Comment on above: Result Comment: Sex [...] By: #### H STROP #### Main Laboratory [address] [address] HS TROPONIN T DELTA Normal 0-4 [facility] Comment on above: Result Comment: No p revious result Performed at [place] [address] Performed By: #### E JOHN #### [facility] [address] [place] [address] HS TROPONIN T,GEN 5 8 NG/L Normal <15 [facility] Comment on above: Result Comment: Sex [...] administration. Performed By: #### E JOHN #### [facility] [address] [address] Hs Troponin Ton 05-11-2023 Hs Troponin T Delta 1 0 - 4 [facility] Comment on above: Performed at [facility] [address] [facility] [address] Troponin T.cardiac [Mass/Vol] 7 ug/L [facility] Comment on above: Sex Specific Referen ce [...] until 8 hours following last biotin administration. [facility] Hs Troponin T Delta No previous result 0 - 4 [facility] Comment on above: Performed at [facility] [address] [facility] [address] Troponin T.cardiac [Mass/Vol] 8 ug/L [facility] Comment on above: Sex Specific Referen ce [...] until 8 hours following last biotin administration. [facility] LIPASE PSon 05-11-2023 LIPASE PS 29 U/L Normal 16-63 [facility] Comment on above: Result Comment: Perf ormed at [address] [address] Performed By: #### L IPS #### [facility] [address] [address] Laboratoryon 05-11-2023 Drug screen comment (U) [Interp] [...] FENTANYL 5 ng/ml (Reference Range: not available) [facility] - Chemistry and C hemistry [...] 8 hours following last biotin administration. [facility] Bilirubin Ql (U) Bili NEGATIVE (NEG ) [facility] pH (U) Urine pH 5.5 (4.6-8.0 ) 4.6 - 8.0 [facility] Specific gravity (U) [Rel density] Urine Sp [place] 1.020 (1.005-1.030 ) 1.005 - 1.030 [facility] Urobilinogen Ql (U) Uro NORMAL MG/DL (0- 1.0 MG/DL) 0 - 1.0 MG/DL [facility] Albumin [Mass/Vol] Albumin 4.1 GM/DL (3.5-5.0 GM/DL) 3.5 - 5.0 GM/DL [facility] Albumin/Globulin [Mass ratio] Albumin Globulin Ratio 1.5 RATIO (1.5-3.0 RATIO) 1.5 - 3.0 RATIO [facility] ALP (Bld) [Catalytic activity/Vol] Alk Phosphatase 63 U/L (35-125 U/L) 35 - 125 U/L [facility] ALT [Catalytic activity/Vol] ALT 24 U/L (5-40 U/L) 5 - 40 U/L [facility] Anion gap [Moles/Vol] Anion Gap 8 MMOL/L (0-19 MMOL/L) 0 - 19 MMOL/L [facility] AST [Catalytic activity/Vol] AST 17 U/L (5-40 U/L) 5 - 40 U/L [facility] Bilirubin [Mass/Vol] Total Bilirubin 0.3 MG/DL (0.1-1.2 MG/DL) 0.1 - 1.2 MG/DL [facility] Calcium [Mass/Vol] Calcium 9.2 MG/DL (8.5-10.4 MG/DL) 8.5 - 10.4 MG/DL [facility] Chloride [Moles/Vol] Chloride 105 MMOL/L (97-107 MMOL/L) 97 - 107 MMOL/L [facility] CO2 [Moles/Vol] Carbon Dioxide 27 MM OL/L (24-31 MMOL/L) 24 - 31 MMOL/L [facility] Creatinine [Mass/Vol] Creatinine R 1.2 M G/DL (0.4-1.6 MG/DL) 0.4 - 1.6 MG/DL [facility] GFR/1.73 sq M.predicted MDRD (S/P/Bld) [Vol rate/Area] EGFR 73 mL/min/1.73 m2 (Reference Range: not available) CALCULATIONS OF ESTIMATED GFR ARE PERFORMED USING THE 2020 CKD-EPI STUDY REFIT EQUATION WITHOUT THE RACE VARIABLE FOR THE IDMS-TRACEABLE CREATININE METHODS. https://jasn.asnjournals .org/content/early/06/14/ASN.6541480901 Performed at [address] [address] [facility] Globulin (S) [Mass/Vol] Globulin 2.7 G/DL (1.9-3.7 G/DL) 1.9 - 3.7 G/DL [facility] Glucose [Mass/Vol] Glucose 86 MG/DL (65 -99 MG/DL) 65 - 99 MG/DL [facility] Lipase [Catalytic activity/Vol] Lipase 29 U/L (16-63 U/L) Performed at [address] [address] 16 - 63 U/L [facility] Magnesium [Mass/Vol] Magnesium 1.9 MG/DL (1.6-3.1 MG/DL) Performed at [address] [address] 1.6 - 3.1 MG/DL [facility] Natriuretic peptide.B prohormone N-Terminal [Mass/Vol] Pro BNP 36 PG/ML (0-138 PG/ML) LESS THAN RESULT CHECKED Reference ranges are based on clinical submission data. These ranges represent the 95th percentile of normal cut-off points. As NT pro-BNP values approach 1000 pg/ml, clinical symptoms are more likely associated with CHF. Performed at [place] [address] 0 - 138 PG/ML [facility] Potassium [Moles/Vol] Potassium R 3.8 MM OL/L (3.4-5.1 MMOL/L) 3.4 - 5.1 MMOL/L [facility] Protein [Mass/Vol] Total Protein 6.8 G/ DL (5.9-7.9 G/DL) 5.9 - 7.9 G/DL [facility] Sodium [Moles/Vol] Sodium 140 MMOL/L (133-145 MMOL/L) 133 - 145 MMOL/L [facility] Troponin T.cardiac [Mass/Vol] HS Troponin T,Gen 5 [...] until 8 hours following last biotin administration. [facility] TSH Qn TSH 0.87 MIU/L (0.27-4.20 MIU/L) Performed at [place] [id number] 0.27 - 4.20 MIU/L [facility] Urea nitrogen [Mass/Vol] BUN 17 MG/DL (8-25 MG/DL) 8 - 25 MG/DL [facility] Urea nitrogen/Creatinine [Mass ratio] BUN Creatinine Ratio 14.2 RATIO (8-21 RATIO) 8 - 21 RATIO [facility] - Coagulationon 0 05-11-2023 Fibrin [...] IN PATIENTS RECEIVING ANTI-COAGULATION THERAPY. Performed at [place] [address] 0.19 - 0.50 MG/L FEU [facility] - Drug toxicology on 05-11-2023 Amphetamines Screen method >1000 ng/mL Ql (U) Urine Amphetamine NEGATIVE (Reference Range: not available) [facility] Barbiturates Screen method >300 ng/mL Ql (U) Urine Barbiturate NEGATIVE (Reference Range: not available) [facility] Benzodiazepines Screen method >300 ng/mL Ql (U) Urine Benzodiazepine NEGATIVE (Reference Range: not available) [facility] Benzoylecgonine Screen method >300 ng/mL Ql (U) Urine Cocaine Metabolites NEGATIVE (Reference Range: not available) [facility] Cannabinoids Screen method >50 ng/mL Ql (U) THC/Cannabinoids NEGATIVE (Reference Range: not available) [facility] fentaNYL+Norfentanyl Screen Ql (U) Urine Fentanyl NEGATIVE Performed at [place] [id number] (Reference Range: not available) [facility] Methadone Ql (U) Urine Methadone NEGA TIVE (Reference Range: not available) [facility] Opiates Screen method >300 ng/mL Ql (U) Urine Opiate NEGATIVE (Reference Range: not available) [facility] oxyCODONE Ql (U) Urine Oxycodone NEGA TIVE (Reference Range: not available) [facility] Phencyclidine Screen method >25 ng/mL Ql (U) Urine PCP NEGATIVE (Reference Range: not available) [facility] Ethanol [Mass/Vol] Alcohol <0.010 Performed at [place] [id number] GM/DL (0-0.010 GM/DL) 0 - 0.010 GM/DL [facility] Laboratory - Hematology and Cell countson 05-11-2023 Hemoglobin Ql (U) Blood NEGATIVE (NEG ) [facility] Basophils (Bld) [#/Vol] Abs Baso 0.01 K/UL (0.00-0.22 K/UL) 0.00 - 0.22 K/UL [facility] Basophils/100 WBC (Bld) Basophil 0.30 % (0-1 %) 0 - 1 % [facility] Differential cell count method Nom (Bld) Diff Type AUTO DIFF (Reference Range: not available) [facility] Eosinophils (Bld) [#/Vol] Abs Eos 0.09 K/UL (0-0.45 K/UL) 0 - 0.45 K/UL [facility] Eosinophils/100 WBC (Bld) Eosinophil 2.70 % (0-3 %) 0 - 3 % [facility] Erythrocyte distribution width (RBC) [Entitic vol] RDW SD 39.0 FL (37.0-54.0 FL) 37.0 - 54.0 FL [facility] Erythrocyte distribution width (RBC) [Ratio] RDW CV 12.5 % (11.7-15.0 %) 11.7 - 15.0 % [facility] Hematocrit (Bld) [Volume fraction] HCT 39.4 % L (41-50 %) Low 41 - 50 % [facility] Hemoglobin (Bld) [Mass/Vol] HGB 13.4 GM/DL L (13.5-16.5 GM/DL) Low 13.5 - 16.5 GM/DL [facility] Immature granulocytes (Bld) [#/Vol] Abs Imm Neut 0.01 K/UL (0.0-0.1 K/UL) 0.0 - 0.1 K/UL [facility] Lymphocytes (Bld) [#/Vol] Abs Lymph 0.99 K/UL L (1.2-3.2 K/UL) Low 1.2 - 3.2 K/UL [facility] Lymphocytes/100 WBC (Bld) Lymphocyte 29.50 % (20-40 %) 20 - 40 % [facility] MCH (RBC) [Entitic mass] MCH 29.5 PG (26-34 PG) 26 - 34 PG [facility] MCHC (RBC) [Mass/Vol] MCHC 34.0 % (31-37 %) 31 - 37 % [facility] MCV (RBC) [Entitic vol] MCV 86.8 FL (80-100 FL) 80 - 100 FL [facility] Monocytes (Bld) [#/Vol] Abs Brown 0.26 K/UL (0-0.8 K/UL) 0 - 0.8 K/UL [facility] Monocytes/100 WBC (Bld) Monocyte 7.70 % (0-8 %) 0 - 8 % [facility] Neutrophils (Bld) [#/Vol] Abs.Neut.Calculated 2.00 K/UL (Reference Range: not available) Performed at [address] [address] [facility] Neutrophils (Bld) [#/Vol] Abs Neut 2.00 K/UL (1.8-7.7 K/UL) 1.8 - 7.7 K/UL [facility] Neutrophils.immature/ 100 WBC (Bld) Immature Neut % 0.30 % (0.0-1.0 %) 0.0 - 1.0 % [facility] Nucleated RBC/100 WBC (Bld) [Ratio] NRBCs 0 /100 WBC (0 /100 WBC) [facility] Platelet mean volume (Bld) [Entitic vol] MPV 11.1 CU (7.0-12.6 CU) 7.0 - 12.6 CU [facility] Platelets (Bld) [#/Vol] PLT 133 K/UL L (150-450 K/UL) SAMPLE INTEGRITY CHECKED CONSISTENT WITH PERIPHERAL SMEAR RESULT CHECKED Low 150 - 450 K/UL [facility] RBC (Bld) [#/Vol] RBC 4.54 M/UL (4.5-5 .5 M/UL) 4.5 - 5.5 M/UL [facility] Segmented neutrophils/100 WBC (Bld) Granulocyte 59.50 % (50-70 %) 50 - 70 % [facility] WBC (Bld) [#/Vol] WBC 3.2 K/UL L (4.5- 11.0 K/UL) Low 4.5 - 11.0 K/UL [facility] - Specimen inform ationon 05-11-2023 Clarity (U) Urine Clarity CLEAR (Reference Range: not available) [facility] Color (U) Urin color PALE YELL OW (Reference Range: not available) [facility] - Urinalysison Bacteria Auto Ql (U) Bacteria NEGATIVE (Reference Range: not available) [facility] Epithelial cells.squamous Auto Ql (U) Urine squamous epi NONE SEEN /HPF (Reference Range: not available) [facility] Glucose Auto test strip (U) [Mass/Vol] Gluc NEGATIVE mg/dL (NEG mg/dL) [facility] Hemoglobin Auto test strip Ql (U) RBC NONE SEEN /HPF (0-3 /HPF) 0 - 3 /HPF [facility] Hyaline casts Auto Ql (U) Urine hyaline cast NONE SEEN /LPF (Reference Range: not available) [facility] Ketones Auto test strip Ql (U) Urine Ketone NEGATIVE (NEG ) [facility] Leukocyte esterase Auto test strip Ql (U) Leuk SMALL A (NEG ) Abnormal [facility] Nitrite Auto test strip Ql (U) Nit NEGATIVE (NEG ) [facility] Protein (U) [Mass/Vol] Prot NEGATIVE mg/dL (NEG mg/dL) [facility] WBC Auto (Urine sed) [#/Area] WBC 3 /HPF (0-3 /HPF) 0 - 3 /HPF [facility] Lipaseon 05-11-2023 Lipase [Catalytic activity/Vol] 29 U/L 16 - 63 U/L [facility] Comment on above: Performed at [place] [address] MAGNESIUMon 05-11-2023 Magnesium [Mass/Vol] 1.9 mg/dL Normal 1.6-3.1 [facility] Comment on above: Result Comment: Perf ormed at [address] [address] Performed By: #### M G #### Main Laboratory [address] [address] Magnesiumon 05-11-2023 Magnesium [Mass/Vol] 1.9 mg/dL [facility] Comment on above: Performed [place] [address] [place] [address] Natriuretic peptide.B prohor fabby N-Terminal [Mass/Vol]on 05-11-2023 [facility] No Panel Informationon 05-11 HS Troponin T Delta 1 (0-4 ) Performed at [address] [address] 0 - 4 [facility] XR Chest 2 Views (PA and lat) (Reference Range: not available) *FINAL Date of Service: 05/11/2023 15:46 Adm #: [id number] Reading Dr:TARAN PINA Signoff Dr: TARAN PINA PROCEDURE: CHEST 2 VIEW - WXR 0020 REASON FOR EXAM: Palpitations RESULT: Patient Name: HOSEA ALVAREZ STUDY: CHEST 2 VIEW 05/11/2023 3:46 pm INDICATION: Palpitations COMPARISON: 01/29/2023 ACCESSION NUMBER(S): [id number] ORDERING CLINICIAN: THALIA ROBERTO TECHNIQUE: Two views chest FINDINGS: Cardiomediastinal silhouette is mildly enlarged. Aorta is tortuous. No infiltrate or effusion identified. Mild multilevel anterior osteophyte formation midthoracic spine. No compression deformity demonstrated. IMPRESSION: No acute cardiopulmonary process. Dictation workstation: [id number] Original Interpreting Physician: TARAN PINA MD Original Transcribed by/Date: MMODAL May 11 2023 3:18P Original Electronically Signed by/Date: TARAN PINA MD May 11 2023 3:59P Addendum Interpreting Physician: Addendum Transcribed by/Date: NO ADDENDUM Addendum Electronically Signed by/Date: [facility] Microscopic AUTOMATI C MICROSCOPIC URINES (Reference Range: not available) [facility] Reflex to Urine Cult ure CULTURE BEING ORDERED BASED ON LEUKOCYTE ESTERASE Performed at [address] [address] (Reference Range: not available) [facility] HS Troponin T Delta No previous result Performed at [address] [address] (0-4 ) 0 - 4 [facility] PRO-BNPon 05-11-2023 Natriuretic peptide B (Bld) [Mass/Vol] 36 pg/mL Normal 0-138 [facility] Comment on above: Result Comment: LESS THAN RESULT CHECKED Reference ranges are based on clinical submission data. These ranges represent the 95th percentile of normal cut-off points. As NT pro-BNP values approach 1000 pg/ml, clinical symptoms are more likely associated with CHF. Performed at [place] [address] Performed By: #### P BNP #### [facility] [place] [address] TSHon 05-11-2023 TSH 0.87 MIU/L Normal 0.27-4.20 [facility] Comment on above: Result Comment: Perf ormed at [place] [address] Performed By: #### E JOHN #### [place] [address] TSH with reflex to Free T4 i f abnormalon 05-11-2023 TSH Qn 0.87 m[IU]/L [facility] Comment on above: Performed at [address] UA-REFLEX TO CULTUREon 05-11 BACT Negative Normal [facility] Comment on above: Performed By: #### U ACUL #### [facility] [address] [address] RBC NONE SEEN Normal 0-3 [facility] Comment on above: Performed By: #### U ACUL #### [facility] [place] [address] Urinalysis dipstick W Reflex Microscopic panel (U) AUTOMATIC MICROSCOPIC URINES Normal [facility] Comment on above: Performed By: #### U ACUL #### [facility] [address] [address] URINE HYALINE CAST NONE SEEN Normal [facility] Comment on above: Performed By: #### U ACUL #### [facility] [address] [address] URINE SQUAMOUS EPI NONE SEEN Normal [facility] Comment on above: Performed By: #### U ACUL #### [facility] [address] [place] [address] WBC 3 /HPF Normal 0-3 [facility] Comment on above: Performed By: #### U ACUL #### [facility] [address] [address] [facility] [place] [address] Bacteria identified Cx Nom (U) [facility] Comment on above: Result Comment: CULT URE BEING ORDERED BASED ON LEUKOCYTE ESTERASE Performed at [address] [place] [address] Performed By: #### U ACUL #### [facility] [address] [address] [facility] [place] [address] BILI Negative Normal NEG [facility] Comment on above: Performed By: #### U ACUL #### [facility] [address] [place] [address] Clarity (U) CLEAR [facility] Comment on above: Performed By: #### U ACUL #### [facility] [id number] [place] [address], [place] [address] Color (U) PALE YELLOW [facility] Comment on above: Performed By: #### U ACUL #### [facility] [address] [address] [facility] [place] [address] GLUC Negative Normal NEG [facility] Comment on above: Performed By: #### U ACUL #### [facility] [address] [place] [address] Hemoglobin Ql (U) Negative Normal NEG [facility] Comment on above: Performed By: #### U ACUL #### [facility] [address] [address] [facility] [place] [address] KET Negative Normal NEG [facility] Comment on above: Performed By: #### U ACUL #### [facility] [address] [address] [facility] [place] [address] LEUK SMALL Abnormal NEG [facility] Comment on above: Performed By: #### U ACUL #### [facility] [address] [address] [facility] [place] [address] NIT Negative Normal NEG [facility] Comment on above: Performed By: #### U ACUL #### [facility] [address] [address] [facility] [place] [address] pH (U) 5.5 [pH] Normal 4.6-8.0 [facility] Comment on above: Performed By: #### U ACUL #### [facility] [address] [place] [address] PROT Negative [facility] Comment on above: Performed By: #### U ACUL #### [facility] [address] [place] [address] SP GRAV,URINE 1.020 Normal 1.005-1.030 [facility] Comment on above: Performed By: #### U ACUL #### [facility] [address] [place] [address] URO NORMAL Normal 0-1.0 [facility] Comment on above: Performed By: #### U ACUL #### [facility] [address] [place] [address] URINE DRUG SCREENon 05-11-20 23 AMPHETAMINE/ECSTASY Negative [facility] Comment on above: Performed By: #### E JOHN #### [facility] [address] [place] [address] BARBITURATE Negative [facility] Comment on above: Performed By: #### E JOHN #### [facility] [address] [place] [address] BENZODIAZEPINE Negative [facility] Comment on above: Performed By: #### E JOHN #### [facility] [address] [facility] [address] COCAINE METABOLITES Negative [facility] Comment on above: Performed By: #### E JOHN #### [facility] [address] [place] [address] FENTANYL [facility] Comment on above: Result Comment: NEGA TIVE Performed at [facility] [address] [place] [address] Performed By: #### E JOHN #### [facility] [address] [place] [address] METHADONE Negative [facility] Comment on above: Performed By: #### E JOHN #### [facility] [address] [place] [address] OPIATE Negative [facility] Comment on above: Performed By: #### E JOHN #### [facility] [id number] [place] [address] OXYCODONE Negative [facility] Comment on above: Performed By: #### E JOHN #### [facility] [address] [address] PCP Negative [facility] Comment on above: Performed By: #### E JOHN #### Main Laboratory [address] [address] THC/CANNABINOIDS Negative [facility] Comment on above: Performed By: #### E JOHN #### [facility] [address] [address] COMMENT [facility] Comment on above: Result Comment: [...] ng/ml Performed By: #### E JOHN #### [facility] [address] [address] Urinalysis complete W Reflex Culture panel (U)on 05-11-2023 Bacteria Auto Ql (U) Negative [facility] Bacteria identified Cx Nom (U) CULTURE BEING ORDERED BASED ON LEUKOCYTE ESTERASE Performed at [address] [address] [facility] Bilirubin Ql (U) Negative NEG [facility] Clarity (U) CLEAR [facility] Color (U) PALE YELLOW [facility] Epithelial cells.squamous Auto Ql (U) NONE SEEN /HPF [facility] Glucose Auto test strip (U) [Mass/Vol] Negative NEG mg/dL [facility] Hemoglobin Auto test strip Ql (U) NONE SEEN [facility] Hemoglobin Ql (U) Negative NEG [facility] Hyaline casts Auto Ql (U) NONE SEEN /LPF [facility] Interpretation and review of laboratory results Abnormal [facility] Ketones Auto test strip Ql (U) Negative NEG [facility] Leukocyte esterase Auto test strip Ql (U) SMALL Abnormal NEG [facility] Nitrite Auto test strip Ql (U) Negative NEG [facility] pH (U) 5.5 [pH] 4.6 - 8.0 [facility] Protein (U) [Mass/Vol] Negative NEG mg/dL [facility] Specific gravity (U) [Rel density] 1.020 1.005 - 1.030 [facility] Urinalysis dipstick W Reflex Microscopic panel (U) AUTOMATIC MICROSCOPIC URINES [facility] Urobilinogen Ql (U) [facility]AL [facility] W[facility] Auto (Urine sed) [#/Area] 3 [facility] XR Chest 2 Viewson 3 Taran Pina MD - 06/05/2023 PROCEDURE: CHEST 2 VIEW - WXR 0020 REASON FOR EXAM: Palpitations RESULT: Patient Name: HOSEA ALVAREZ STUDY: CHEST 2 VIEW 05/11/2023 3:46 pm INDICATION: Palpitations COMPARISON: 01/29/2023 ACCESSION NUMBER(S): [id number] ORDERING CLINICIAN: THALIA ROBERTO TECHNIQUE: Two views chest FINDINGS: Cardiomediastinal silhouette is mildly enlarged. Aorta is tortuous. No infiltrate or effusion identified. Mild multilevel anterior osteophyte formation midthoracic spine. No compression deformity demonstrated. IMPRESSION: No acute cardiopulmonary process. Dictation workstation: [id number] Original Interpreting Physician: TARAN PINA MD Original Transcribed by/Date: MMODAL May 11 2023 3:18P Original Electronically Signed by/Date: TARAN PINA MD May 11 2023 3:59P Addendum Interpreting Physician: Addendum Transcribed by/Date: NO ADDENDUM Addendum Electronically Signed by/Date: [facility] Work Phone: Radiology Study observation (narrative) [facility] Work Phone: XR Chest 2 ViewsOrdered By: Taran Pina on 05-11-2023 [facility] Work Phone: Activated partial thrombopla stin time (aPTT) in platelet poor plasma by coagulation aOrdered By: Severino Singh on 05-05-2023 aPTT Coag (PPP) [Time] 29.8 s 25.1-36.5 [facility] Alanine aminotransferase [En zymatic activity/volume] in Serum or PlasmaOrdered By: Bozena Shaw on 05-05-2023 ALT [Catalytic activity/Vol] 21 U/L [facility] Alanine aminotransferase [En zymatic activity/volume] in Serum or PlasmaOrdered By: Severino iSngh on 05-05-2023 ALT [Catalytic activity/Vol] 25 U/L [facility] Albumin [Mass/volume] in Ser um or Plasma by Bromocresol green (BCG) dye binding methoOrdered By: Bozena Shaw on 05-05-2023 Albumin BCG dye [Mass/Vol] 4.1 g/dL 3.5-5.7 [facility] Albumin [Mass/volume] in Ser um or Plasma by Bromocresol green (BCG) dye binding methoOrdered By: Severino Singh on 05-05-2023 Albumin BCG dye [Mass/Vol] 4.6 g/dL 3.5-5.7 [facility] Alkaline phosphatase [Enzyma tic activity/volume] in Serum or PlasmaOrdered By: Bozena Shaw on 05-05-2023 ALP [Catalytic activity/Vol] 50 U/L 34-104 [facility] Alkaline phosphatase [Enzyma tic activity/volume] in Serum or PlasmaOrdered By: Severino Singh on 05-05-2023 ALP [Catalytic activity/Vol] 62 U/L 34-104 [facility] Amphetamine Screen Ql (U)Ord ered By: Bozena Shaw on 05-05-2023 Amphetamines Ql (U) Negative Negative [facility] Aspartate aminotransferase [ Enzymatic activity/volume] in Serum or PlasmaOrdered By: Bozena Shaw on 05-05-2023 AST [Catalytic activity/Vol] 17 U/L 1339 [facility] Aspartate aminotransferase [ Enzymatic activity/volume] in Serum or PlasmaOrdered By: Severino Singh on 05-05-2023 AST [Catalytic activity/Vol] 21 U/L [facility] Automated erythrocytes count in urine sediment (number/area)Ordered By: Severino Singh on 05-05-2023 RBC Auto (Urine sed) [#/Area] 1-2 [HPF] 0-4 [facility] Automated leukocytes count i n urine sediment (number/area)Ordered By: Severino Singh on 05-05-2023 WBC Auto (Urine sed) [#/Area] 1-2 [HPF] 0-4 [facility] Barbiturates [Presence] in U rine by Screen methodOrdered By: Bozena Shaw on 05-05-2023 Barbiturates Screen Ql (U) Negative Negative [facility] Basophils Auto (Bld) [#/Vol] Ordered By: Bozena Shaw on 05-05-2023 Basophils (Bld) [#/Vol] 0.0 10*3/uL 0.0-0.2 [facility] Basophils Auto (Bld) [#/Vol] Ordered By: Severino Singh on 05-05-2023 Basophils (Bld) [#/Vol] 0.0 10*3/uL 0.0-0.2 [facility] Basophils/100 WBC Auto (Bld) Ordered By: Bozena Shaw on 05-05-2023 Basophils/100 WBC (Bld) 0.3 % . [facility] Basophils/100 WBC Auto (Bld) Ordered By: Severino Singh on 05-05-2023 Basophils/100 WBC (Bld) 0.4 % . [facility] Benzodiazepines Screen Ql (U )Ordered By: Bozena Shaw on 05-05-2023 Benzodiazepines Ql (U) Negative Negative [facility] Benzoylecgonine [Presence] i n Urine by Screen methodOrdered By: Bozena Shaw on 05-05-2023 Benzoylecgonine Screen Ql (U) Negative Negative [facility] Bilirubin Test strip Ql (U)O rdered By: Severino Singh on 05-05-2023 Bilirubin Ql (U) Negative Negative [facility] Bilirubin.direct [Mass/volum e] in Serum or PlasmaOrdered By: Severino Singh on 05-05-2023 Bilirubin.direct [Mass/Vol] 0.00 mg/dL 0.03-0.18 [facility] Comment on above: If the DBIL is less than 0.1, IBIL is not able to becalculated. Bilirubin.total [Mass/volume ] in Serum or PlasmaOrdered By: Bozena Shaw on 05-05-2023 Bilirubin [Mass/Vol] 0.4 mg/dL 0.3-1.0 [facility] Bilirubin.total [Mass/volume ] in Serum or PlasmaOrdered By: Severino Singh on 05-05-2023 Bilirubin [Mass/Vol] 0.3 mg/dL 0.3-1.0 [facility] Calcium [Mass/volume] in Ser um or PlasmaOrdered By: Bozena Shaw on 05-05-2023 Calcium [Mass/Vol] 8.3 mg/dL 8.6-10.3 [facility] Calcium [Mass/volume] in Ser um or PlasmaOrdered By: Severino Singh on 05-05-2023 Calcium [Mass/Vol] 9.2 mg/dL 8.6-10.3 [facility] Cannabinoids [Presence] in U rine by Screen methodOrdered By: Bozena Shaw on 05-05-2023 Cannabinoids Screen Ql (U) Negative Negative [facility] Comment on above: These are unconfirme d results and should not be used for legal purposes. Drug Cut-Off Concentration: AMPH 1000 ng/mL CIELO 200 ng/mL KAYA 200 ng/mL COCM 300 ng/mL OP 300 ng/mL PCP 25 ng/mL THC 20 ng/mL Carbon dioxide, total [Moles /volume] in Serum or PlasmaOrdered By: Bozena Shaw on 05-05-2023 CO2 [Moles/Vol] 24.3 mmol/L 21.0-31.0 [facility] Carbon dioxide, total [Moles /volume] in Serum or PlasmaOrdered By: Severino Singh on 05-05-2023 CO2 [Moles/Vol] 23.8 mmol/L 21.0-31.0 [facility] Chloride [Moles/volume] in S karolyn or PlasmaOrdered By: Bozena Shaw on 05-05-2023 Chloride [Moles/Vol] 103 mmol/L 98-107 [facility] Chloride [Moles/volume] in S karolyn or PlasmaOrdered By: Severino Singh on 05-05-2023 Chloride [Moles/Vol] 103 mmol/L 98-107 [facility] Color Auto (U)Ordered By: Wilfredo Singh on 05-05-2023 Color (U) Yellow Yellow [facility] Creatinine [Mass/volume] in Serum or PlasmaOrdered By: Bozena Shaw on 05-05-2023 Creatinine [Mass/Vol] 1.02 mg/dL 0.70-1.30 [facility] Creatinine [Mass/volume] in Serum or PlasmaOrdered By: Severino Singh on 05-05-2023 Creatinine [Mass/Vol] 1.00 mg/dL 0.70-1.30 [facility] Eosinophils Auto (Bld) [#/Vo l]Ordered By: Bozena Shaw on 05-05-2023 Eosinophils (Bld) [#/Vol] 0.0 10*3/uL 0.0-0.45 [facility] Eosinophils Auto (Bld) [#/Vo l]Ordered By: Severino Singh on 05-05-2023 Eosinophils (Bld) [#/Vol] 0.0 10*3/uL 0.0-0.45 [facility] Eosinophils/100 WBC Auto (Bl d)Ordered By: Bozena Shaw on 05-05-2023 Eosinophils/100 WBC (Bld) 0.7 % . [facility] Eosinophils/100 WBC Auto (Bl d)Ordered By: Severino Singh on 05-05-2023 Eosinophils/100 WBC (Bld) 1.2 % . [facility] Erythrocyte distribution wid th Auto (RBC) [Ratio]Ordered By: Bozena Shaw on 05-05-2023 Erythrocyte distribution width (RBC) [Ratio] 13.2 % 12.0-14.8 [facility] Erythrocyte distribution wid th Auto (RBC) [Ratio]Ordered By: Severino Singh on 05-05-2023 Erythrocyte distribution width (RBC) [Ratio] 12.8 % 12.0-14.8 [facility] Ethanol [Mass/volume] in Ser um or PlasmaOrdered By: Bozena Shaw on 05-05-2023 Ethanol [Mass/Vol] mg/dL [facility] Ethanol [Mass/Vol] TNP [facility] Comment on above: Test not performed Globulin Calc (S) [Mass/Vol] Ordered By: Bozena Shaw on 05-05-2023 Globulin (S) [Mass/Vol] 2.5 g/dL [facility] Globulin Calc (S) [Mass/Vol] Ordered By: Severino Singh on 05-05-2023 Globulin (S) [Mass/Vol] 3.1 g/dL [facility] Glucose [Mass/volume] in Ser um or PlasmaOrdered By: Bozena Shaw on 05-05-2023 Glucose [Mass/Vol] 132 mg/dL 70-100 [facility] Comment on above: ADA recommended refe rence rangeRandom Glucose Reference Range is dependent on time and content of last meal. Glucose of more than 200 mg/dL in a nonstressed, ambulatory subject supports the diagnosis of Diabetes Mellitus. Glucose [Mass/volume] in Ser um or PlasmaOrdered By: Severino Singh on 05-05-2023 Glucose [Mass/Vol] 94 mg/dL 70-100 [facility] Comment on above: ADA recommended refe rence rangeRandom Glucose Reference Range is dependent on time and content of last meal. Glucose of more than 200 mg/dL in a nonstressed, ambulatory subject supports the diagnosis of Diabetes Mellitus. Hematocrit Auto (Bld) [Volum e fraction]Ordered By: Bozena Shaw on 05-05-2023 Hematocrit (Bld) [Volume fraction] 38.3 % 38.8-50.0 [facility] Hematocrit Auto (Bld) [Volum e fraction]Ordered By: Severino Singh on 05-05-2023 Hematocrit (Bld) [Volume fraction] 43.1 % 38.8-50.0 [facility] Hemoglobin [Mass/volume] in BloodOrdered By: Bozena Shaw on 05-05-2023 Hemoglobin (Bld) [Mass/Vol] 12.9 g/dL 13.0-17.0 [facility] Hemoglobin [Mass/volume] in BloodOrdered By: Severino Singh on 05-05-2023 Hemoglobin (Bld) [Mass/Vol] 14.7 g/dL 13.0-17.0 [facility] Ketones Auto test strip (U) [Mass/Vol]Ordered By: Severino Singh on 05-05-2023 Ketones (U) [Mass/Vol] Trace Negative [facility] Laboratory - CoagulationOrde red By: Severino Singh on 05-05-2023 PT Coag (PPP) [Time] 10.3 s 9.0-12.9 [facility] - UrinalysisOrder ed By: Severino Singh on 05-05-2023 Hyaline casts LM Ql (Urine sed) 0-8 [LPF] 0-8 [facility] Leukocytes [#/volume] correc sebastián for nucleated erythrocytes in Blood by Automated counOrdered By: Bozena Shaw on 05-05-2023 WBC corrected for nucl RBC Auto (Bld) [#/Vol] 4.8 10*3/uL 4.1-10.5 [facility] Leukocytes [#/volume] correc sebastián for nucleated erythrocytes in Blood by Automated counOrdered By: Severino Singh on 05-05-2023 WBC corrected for nucl RBC Auto (Bld) [#/Vol] 3.3 10*3/uL 4.1-10.5 [facility] Lipase [Enzymatic activity/v olume] in Serum or PlasmaOrdered By: Severino Singh on 05-05-2023 Lipase [Catalytic activity/Vol] 15.0 U/L 11.0-82.0 [facility] Lymphocytes Auto (Bld) [#/Vo l]Ordered By: Bozena Shaw on 05-05-2023 Lymphocytes (Bld) [#/Vol] 0.9 10*3/uL 1.00-4.8 [facility] Lymphocytes Auto (Bld) [#/Vo l]Ordered By: Severino Singh on 05-05-2023 Lymphocytes (Bld) [#/Vol] 0.7 10*3/uL 1.00-4.8 [facility] Lymphocytes/100 WBC Auto (Bl d)Ordered By: Bozena Shaw on 05-05-2023 Lymphocytes/100 WBC (Bld) 19.4 % . [facility] Lymphocytes/100 WBC Auto (Bl d)Ordered By: Severino Singh on 05-05-2023 Lymphocytes/100 WBC (Bld) 20.9 % . [facility] MCH Auto (RBC) [Entitic mass ]Ordered By: Bozena Shaw on 05-05-2023 MCH (RBC) [Entitic mass] 29.0 pg 27.5-35.2 [facility] MCH Auto (RBC) [Entitic mass ]Ordered By: Severino Singh on 05-05-2023 MCH (RBC) [Entitic mass] 29.4 pg 27.5-35.2 [facility] MCHC Auto (RBC) [Mass/Vol]Or dered By: Bozena Shaw on 05-05-2023 MCHC (RBC) [Mass/Vol] 33.7 g/dL 32.5-35.6 [facility] MCHC Auto (RBC) [Mass/Vol]Or dered By: Severino Singh on 05-05-2023 MCHC (RBC) [Mass/Vol] 34.2 g/dL 32.5-35.6 [facility] MCV Auto (RBC) [Entitic vol] Ordered By: Bozena Shaw on 05-05-2023 MCV (RBC) [Entitic vol] 86.0 fL 83.5-101 [facility] MCV Auto (RBC) [Entitic vol] Ordered By: Severino Singh on 05-05-2023 MCV (RBC) [Entitic vol] 85.8 fL 83.5-101 [facility] Monocyte distribution width [Entitic volume] in Blood by AutomatedOrdered By: Bozena Shaw on 05-05-2023 Monocyte distribution width Auto (Bld) [Entitic vol] 16.00 % 0.00-20.00 [facility] Monocyte distribution width [Entitic volume] in Blood by AutomatedOrdered By: Severino Singh on 05-05-2023 Monocyte distribution width Auto (Bld) [Entitic vol] 17.58 % 0.00-20.00 [facility] Monocytes Auto (Bld) [#/Vol] Ordered By: Bozena Shaw on 05-05-2023 Monocytes (Bld) [#/Vol] 0.3 10*3/uL 0.0-0.8 [facility] Monocytes Auto (Bld) [#/Vol] Ordered By: Severino Singh on 05-05-2023 Monocytes (Bld) [#/Vol] 0.3 10*3/uL 0.0-0.8 [facility] Monocytes/100 WBC Auto (Bld) Ordered By: Bozena Gomese on 05-05-2023 Monocytes/100 WBC (Bld) 6.6 % . [facility] Monocytes/100 WBC Auto (Bld) Ordered By: Severino Singh on 05-05-2023 Monocytes/100 WBC (Bld) 7.7 % . [facility] Neutrophils Auto (Bld) [#/Vo l]Ordered By: Bozena Lindsayfle on 05-05-2023 Neutrophils (Bld) [#/Vol] 3.5 10*3/uL 1.8-7.7 [facility] Neutrophils Auto (Bld) [#/Vo l]Ordered By: Severino Singh on 05-05-2023 Neutrophils (Bld) [#/Vol] 2.3 10*3/uL 1.8-7.7 [facility] Neutrophils/100 WBC Auto (Bl d)Ordered By: Bozena Saffle on 05-05-2023 Neutrophils/100 WBC (Bld) 73.0 % . [facility] Neutrophils/100 WBC Auto (Bl d)Ordered By: Severino Singh on 05-05-2023 Neutrophils/100 WBC (Bld) 69.8 % . [facility] Nitrite Test strip Ql (U)Ord ered By: Severino Singh on 05-05-2023 Nitrite Ql (U) Negative Negative [facility] No Panel InformationOrdered By: Bozena Shaw on 05-05-2023 Estimated GFR (CKD-EPI) > 60.0 mL/Min [facility] Creatinine Clearance (Chem 90.37 [facility] No Panel InformationOrdered By: Severino Singh on 05-05-2023 Estimated GFR (CKD-EPI) > 60.0 mL/Min [facility] Creatinine Clearance (Chem 96.66 [facility] Nucleated erythrocytes [Pres ence] in Blood by Automated countOrdered By: Bozena Shaw on 05-05-2023 Nucleated RBC Auto Ql (Bld) 0.0 /100{WBC} 0-0.5 [facility] Nucleated erythrocytes [Pres ence] in Blood by Automated countOrdered By: Severino Singh on 05-05-2023 Nucleated RBC Auto Ql (Bld) 0.2 /100{WBC} 0-0.5 [facility] Opiates [Presence] in Urine by Screen methodOrdered By: Bozena Shaw on 05-05-2023 Opiates Screen Ql (U) Negative Negative [facility] Phencyclidine Screen Ql (U)O rdered By: Bozena Shaw on 05-05-2023 Phencyclidine Ql (U) Negative Negative [facility] Platelet mean volume Auto (B ld) [Entitic vol]Ordered By: Bozena Shaw on 05-05-2023 Platelet mean volume (Bld) [Entitic vol] 8.6 fL 6.6-10.1 [facility] Platelet mean volume Auto (B ld) [Entitic vol]Ordered By: Severino Singh on 05-05-2023 Platelet mean volume (Bld) [Entitic vol] 8.8 fL 6.6-10.1 [facility] Platelet poor plasma interna tional normalized ratio (INR) by coagulation assay (relatOrdered By: Severino Singh on 05-05-2023 INR Coag (PPP) [Relative time] 0.9 {INR} [facility] Comment on above: INR Therapeutic Rang [...] 05-05-2023 Platelets (Bld) [#/Vol] 135 10*3/uL 150-450 [facility] Platelets Auto (Bld) [#/Vol] Ordered By: Severino Singh on 05-05-2023 Platelets (Bld) [#/Vol] 146 10*3/uL 150-450 [facility] Potassium [Moles/volume] in Serum or PlasmaOrdered By: Bozena Shaw on 05-05-2023 Potassium [Moles/Vol] 3.6 mmol/L 3.5-5.1 [facility] Potassium [Moles/volume] in Serum or PlasmaOrdered By: Severino Singh on 05-05-2023 Potassium [Moles/Vol] 3.9 mmol/L 3.5-5.1 [facility] Protein Auto test strip (U) [Mass/Vol]Ordered By: Severino Singh on 05-05-2023 Protein (U) [Mass/Vol] Trace mg/dL Negative [facility] Protein [Mass/volume] in Ser um or PlasmaOrdered By: Bozena Shaw on 05-05-2023 Protein [Mass/Vol] 6.6 g/dL 6.4-8.9 [facility] Protein [Mass/volume] in Ser um or PlasmaOrdered By: Severino Singh on 05-05-2023 Protein [Mass/Vol] 7.7 g/dL 6.4-8.9 [facility] RBC Auto (Bld) [#/Vol]Ordere d By: Bozena Shaw on 05-05-2023 RBC (Bld) [#/Vol] 4.46 10*6/uL 3.90-5.60 [facility] RBC Auto (Bld) [#/Vol]Ordere d By: Severino Singh on 05-05-2023 RBC (Bld) [#/Vol] 5.02 10*6/uL 3.90-5.60 [facility] Serum or plasma albumin/glob ulin mass ratioOrdered By: Bozena Shaw on 05-05-2023 Albumin/Globulin [Mass ratio] 1.6 {ratio} [facility] Serum or plasma albumin/glob ulin mass ratioOrdered By: Severino Singh on 05-05-2023 Albumin/Globulin [Mass ratio] 1.5 {ratio} [facility] Serum or plasma anion gap de terminationOrdered By: Bozena Shaw on 05-05-2023 Anion gap [Moles/Vol] 13.3 mmol/L 6.0-15.0 [facility] Serum or plasma anion gap de terminationOrdered By: Severino Singh on 05-05-2023 Anion gap [Moles/Vol] TNP [facility] Comment on above: Test not performed Serum or plasma non-glucuron idated bilirubin measurement (mass/volume)Ordered By: Severino Singh on 05-05-2023 Bilirubin.indirect [Mass/Vol] 0.3 mg/dL [facility] Sodium [Moles/volume] in Ser um or PlasmaOrdered By: Bozena Shaw on 05-05-2023 Sodium [Moles/Vol] 137 mmol/L 136-145 [facility] Sodium [Moles/volume] in Ser um or PlasmaOrdered By: Severino Singh on 05-05-2023 Sodium [Moles/Vol] 140 mmol/L 136-145 [facility] Specific gravity Auto test s trip (U) [Rel density]Ordered By: Severino Singh on 05-05-2023 Specific gravity (U) [Rel density] 1.018 1.001-1.030 [facility] Squamous epithelial cells de tection in urine sediment by light microscopyOrdered By: Severino Singh on 05-05-2023 Epithelial cells.squamous LM Ql (Urine sed) None seen [HPF] 0-2 [facility] Troponin I.cardiac [Mass/vol ume] in Serum or Plasma by Detection limit <= 0.01 ng/Ordered By: Bozena Shaw on 05-05-2023 Troponin I.cardiac DL <= 0.01 ng/mL [Mass/Vol] 5.6 pg/mL 0.0-20.0 [facility] Urea nitrogen [Mass/volume] in Serum or PlasmaOrdered By: Bozena Shaw on 05-05-2023 Urea nitrogen [Mass/Vol] 11 mg/dL 04-16 [facility] Urea nitrogen [Mass/volume] in Serum or PlasmaOrdered By: Severino Singh on 05-05-2023 Urea nitrogen [Mass/Vol] 13 mg/dL 04-16 [facility] Urine bacteria detection by automated methodOrdered By: Severino Singh on 05-05-2023 Bacteria Auto Ql (U) None seen None Seen [facility] Urine clarity by refractomet ry automatedOrdered By: Severino Singh on 05-05-2023 Clarity Refractometry automated (U) Clear Clear [facility] Urine glucose measurement by automated test strip (mass/volume)Ordered By: Severino Singh on 05-05-2023 Glucose Auto test strip (U) [Mass/Vol] Normal mg/dL Normal [facility] Urine hemoglobin detection b y automated test stripOrdered By: Severino Singh on 05-05-2023 Hemoglobin Auto test strip Ql (U) Negative Negative [facility] Urine leukocyte esterase det ection by automated test stripOrdered By: Severino Singh on 05-05-2023 Leukocyte esterase Auto test strip Ql (U) Negative Negative [facility] Urobilinogen Auto test strip (U) [Mass/Vol]Ordered By: Severino Singh on 05-05-2023 Urobilinogen (U) [Mass/Vol] Normal mg/dL Normal [facility] WBC Auto (Bld) [#/Vol]Ordere d By: Bozena Shaw on 05-05-2023 WBC (Bld) [#/Vol] 4.8 10*3/uL 4.1-10.5 [facility] WBC Auto (Bld) [#/Vol]Ordere d By: Severino Singh on 05-05-2023 WBC (Bld) [#/Vol] 3.3 10*3/uL 4.1-10.5 [facility] pH Auto test strip (U)Ordere d By: Severino Samantha on 05-05-2023 pH (U) 5.5 [pH] 5.0-9.0 [facility] XR CHEST (2 VW)on 04-22-2023 XR [...] Rosi Vega MD 04/22/23 Final result Normal [facility] Basic Metabolic Profon 04-21 Anion gap [Moles/Vol] 15 mmol/L Normal 9-17 [facility] Comment on above: Performed By: #### C DP, BMP, TROPI #### [address] [address] [employer]: Maycol Mendiola MD Calcium [Mass/Vol] 9.3 mg/dL Normal 8.6-10.4 [facility] Comment on above: Performed By: #### C DP, BMP, TROPI #### [address] [address] [employer]: Maycol Mendiola MD Chloride [Moles/Vol] 103 mmol/L Normal 98-107 [facility] Comment on above: Performed By: #### C DP, BMP, TROPI #### [facility] [address] [place] [id number] [employer]: Maycol Mendiola MD CO2 [Moles/Vol] 20 mmol/L Normal 20-31 [facility] Comment on above: Performed By: #### C DP, BMP, TROPI #### [facility] [address] [place] [address] [employer]: Maycol Mendiola MD Creatinine [Mass/Vol] 0.9 mg/dL Normal 0.7-1.2 [facility] Comment on above: Performed By: #### C DP, BMP, TROPI #### [facility] [address] [place] [id number] [employer]: Maycol Mendiola MD GFR/1.73 sq M.predicted among non-blacks MDRD (S/P/Bld) [Vol rate/Area] mL/min/{1.73_m2} Normal >60 [facility] Comment on above: Result Comment: These results [...] By: #### C DP, BMP, TROPI #### [facility] [address] [place] [address] [employer]: Maycol Mendiola MD Glucose [Mass/Vol] 120 mg/dL High 70-99 [facility] Comment on above: Performed By: #### C DP, BMP, TROPI #### [facility] [address] [place] [address] [employer]: Maycol Mendiola MD Potassium [Moles/Vol] 3.9 mmol/L Normal 3.7-5.3 [facility] Comment on above: Performed By: #### C DP, BMP, TROPI #### [facility] [employer] [address] [place] [id number] [employer]: Maycol Mendiola MD Sodium [Moles/Vol] 138 mmol/L Normal 135-144 [facility] Comment on above: Performed By: #### C DP, BMP, TROPI #### [facility] [address] [place] [address] [employer]: Maycol Mendiola MD Urea nitrogen [Mass/Vol] 12 mg/dL Normal 6-20 [facility] Comment on above: Performed By: #### C DP, BMP, TROPI #### [address] [address] [employer]: Maycol Mendiola MD CBC with Diffon 04-21-2023 Abs. Basophil <0.03 Normal 0.00-0.20 [facility] Comment on above: Performed By: #### C DP, BMP, TROPI #### [address] [address] [employer]: Maycol Mendiola MD Abs.Imm.Granulocyte <0.03 Normal 0.00-0.30 [facility] Comment on above: Performed By: #### C DP, BMP, TROPI #### [address] [address] [employer]: Maycol Mendiola MD Abs.Neutrophil (Seg) 2.61 k/uL Normal 1.50-8.10 [facility] Comment on above: Performed By: #### C DP, BMP, TROPI #### [place] [address] [employer]: Maycol Mendiola MD Basophils/100 WBC (Bld) 1 % Normal 0-2 [facility] Comment on above: Performed By: #### C DP, BMP, TROPI #### [address] [address] [employer]: Maycol Mendiola MD Eosinophils (Bld) [#/Vol] 0.06 10*3/uL Normal 0.00-0.44 [facility] Comment on above: Performed By: #### C DP, BMP, TROPI #### [address] [place] [address] [employer]: Maycol Mendiola MD Eosinophils/100 WBC (Bld) 2 % Normal 1-4 [facility] Comment on above: Performed By: #### C DP, BMP, TROPI #### [address] [address] [employer]: Maycol Mendiola MD Erythrocyte distribution width (RBC) [Ratio] 12.3 % Normal 11.8-14.4 [facility] Comment on above: Performed By: #### C DP, BMP, TROPI #### [facility] [address] [place] [id number] [employer]: Maycol Mendiola MD Hematocrit (Bld) [Volume fraction] 41.3 % Normal 40.7-50.3 [facility] Comment on above: Performed By: #### C DP, BMP, TROPI #### [facility] [address] [place] [address] [employer]: Maycol Mendiola MD Hemoglobin (Bld) [Mass/Vol] 13.8 g/dL Normal 13.0-17.0 [facility] Comment on above: Performed By: #### C DP, BMP, TROPI #### [facility] [address] [place] [address] [employer]: Maycol Mendiola MD Immature granulocytes/100 WBC (Bld) 0 % Normal 0 [facility] Comment on above: Performed By: #### C DP, BMP, TROPI #### [facility] [address] [place] [address] [employer]: Maycol Mendiola MD Lymphocytes (Bld) [#/Vol] 0.92 10*3/uL Low 1.10-3.70 [facility] Comment on above: Performed By: #### C DP, BMP, TROPI #### [facility] [address] [place] [address] [employer]: Maycol Mendiola MD Lymphocytes/100 WBC (Bld) 23 % Low 24-43 [facility] Comment on above: Performed By: #### C DP, BMP, TROPI #### [facility] [address] [place] [id number] [employer]: Maycol Mendiola MD MCH (RBC) [Entitic mass] 29.6 pg Normal 25.2-33.5 [facility] Comment on above: Performed By: #### C DP, BMP, TROPI #### [facility] [address] [place] [address] [employer]: Maycol Mendiola MD MCHC (RBC) [Mass/Vol] 33.4 g/dL Normal 28.4-34.8 [facility] Comment on above: Performed By: #### C DP, BMP, TROPI #### [place] [address] [employer]: Maycol Mendiola MD MCV (RBC) [Entitic vol] 88.4 fL Normal 82.6-102.9 [facility] Comment on above: Performed By: #### C DP, BMP, TROPI #### [place] [address] [employer]: Maycol Mendiola MD Monocytes (Bld) [#/Vol] 0.36 10*3/uL Normal 0.10-1.20 [facility] Comment on above: Performed By: #### C DP, BMP, TROPI #### [address] [address] [employer]: Maycol Mendiola MD Monocytes/100 WBC (Bld) 9 % Normal 3-12 [facility] Comment on above: Performed By: #### C DP, BMP, TROPI #### [address] [address] [employer]: Maycol Mendiola MD Neutrophil (Seg) 65 % Normal 36-65 [facility] Comment on above: Performed By: #### C DP, BMP, TROPI #### [facility] [place] [address] [employer]: Maycol Mendiola MD NRBC Automated 0.0 per 100 WBC Normal 0.0 [facility] Comment on above: Performed By: #### C DP, BMP, TROPI #### [facility] [address] [place] [id number] [employer]: Maycol Mendiola MD Platelet mean volume (Bld) [Entitic vol] 11.1 fL Normal 8.1-13.5 [facility] Comment on above: Performed By: #### C DP, BMP, TROPI #### [address] [address] [employer]: Maycol Mendiola MD Platelets (Bld) [#/Vol] 141 10*3/uL Normal 138-453 [facility] Comment on above: Performed By: #### C DP, BMP, TROPI #### [address] [address] [employer]: Maycol Mendiola MD RBC (Bld) [#/Vol] 4.67 10*6/uL Normal 4.21-5.77 [facility] Comment on above: Performed By: #### C DP, BMP, TROPI #### [facility] [facility] [address] [place] [address] [id number] [employer]: Maycol Mendiola MD WBC (Bld) [#/Vol] 4.0 10*3/uL Normal 3.5-11.3 [facility] Comment on above: Performed By: #### C DP, BMP, TROPI #### [facility] [address] [place] [address] [id number] [employer]: Maycol Mendiola MD Troponinon 04-21-2023 Troponin, High Sens 6 ng/L Normal 0-22 [facility] Comment on above: Result Comment: High Sensitivity Troponin values cannot be compared with other Troponin methodologies. Performed By: #### C DP, BMP, TROPI #### [facility] [address] [place] [address] [id number] [employer]: Maycol Mendiola MD Basic Metabolic Profon 04-20 Anion gap [Moles/Vol] 11 mmol/L Normal 9-17 [facility] Comment on above: Performed By: #### C DP, BMP, TROPI #### [facility] [address] [place] [address] [id number] [employer]: Maycol Mendiola MD Calcium [Mass/Vol] 9.1 mg/dL Normal 8.6-10.4 [facility] Comment on above: Performed By: #### C DP, BMP, TROPI #### [facility] [address] [place] [address] [id number] [employer]: Maycol Mendiola MD Chloride [Moles/Vol] 103 mmol/L Normal 98-107 [facility] Comment on above: Performed By: #### C DP, BMP, TROPI #### [facility] [address] [place] [address] [id number] [employer]: Maycol Mendiola MD CO2 [Moles/Vol] 23 mmol/L Normal 20-31 [facility] Comment on above: Performed By: #### C DP, BMP, TROPI #### [facility] [address] [place] [address] [id number] [employer]ener: Maycol Mendiola MD Creatinine [Mass/Vol] 0.9 mg/dL Normal 0.7-1.2 [facility] Comment on above: Performed By: #### C DP, BMP, TROPI #### [facility] [address] [place] [address] [id number] [employer]ightener: Maycol Mendiola MD GFR/1.73 sq M.predicted among non-blacks MDRD (S/P/Bld) [Vol rate/Area] mL/min/{1.73_m2} Normal >60 [facility] Comment on above: Result Comment: These results [...] By: #### C DP, BMP, TROPI #### [facility] [address] [place] [address] [id number] [employer]: Maycol Mendiola MD Glucose [Mass/Vol] 109 mg/dL High 70-99 [facility] Comment on above: Performed By: #### C DP, BMP, TROPI #### [facility] [address] [place] [address] [employer]: Maycol Mendiola MD Potassium [Moles/Vol] 4.1 mmol/L Normal 3.7-5.3 [facility] Comment on above: Performed By: #### C DP, BMP, TROPI #### [facility] [address] [place] [address] [id number] [employer]ener: Maycol Mendiola MD Sodium [Moles/Vol] 137 mmol/L Normal 135-144 [facility] Comment on above: Performed By: #### C DP, BMP, TROPI #### [facility] [address] [place] [address] [id number] [employer]ener: Maycol Mendiola MD Urea nitrogen [Mass/Vol] 14 mg/dL Normal 6-20 [facility] Comment on above: Performed By: #### C DP, BMP, TROPI #### [facility] [address] [place] [address] [id number] [employer]ener: Maycol Mendiola MD Anion gap [Moles/Vol] 12 mmol/L Normal 9-17 [facility] Comment on above: Performed By: #### C DP, BMP, TROPI #### [place] [address] [employer]: Catalino Campbell MD Calcium [Mass/Vol] 9.0 mg/dL Normal 8.6-10.4 [facility] Comment on above: Performed By: #### C DP, BMP, TROPI #### [place] [address] [employer]: Catalino Campbell MD Chloride [Moles/Vol] 104 mmol/L Normal 98-107 [facility] Comment on above: Performed By: #### C DP, BMP, TROPI #### [place] [address] [employer]: Catalino Campbell MD CO2 [Moles/Vol] 22 mmol/L Normal 20-31 [facility] Comment on above: Performed By: #### C DP, BMP, TROPI #### [place] [address] [employer]: Catalino Campbell MD Creatinine [Mass/Vol] 0.9 mg/dL Normal 0.7-1.2 [facility] Comment on above: Performed By: #### C DP, BMP, TROPI #### [place] [address] [employer]: Catalino Campbell MD GFR/1.73 sq M.predicted among non-blacks MDRD (S/P/Bld) [Vol rate/Area] mL/min/{1.73_m2} Normal >60 [facility] Comment on above: Result Comment: These results [...] By: #### C CARLENE CHEATHAM, TROPI #### [place] [address] [employer]: Catalino Campbell MD Glucose [Mass/Vol] 109 mg/dL High 70-99 [facility] Comment on above: Performed By: #### C CARLENE CHEATHAM, TROPI #### [place] [address] [employer]: Catalino Campbell MD Potassium [Moles/Vol] 4.2 mmol/L Normal 3.7-5.3 [facility] Comment on above: Performed By: #### C CARLENE CHEATHAM, TROPI #### [place] [address] [employer]: Catalino Campbell MD Sodium [Moles/Vol] 138 mmol/L Normal 135-144 [facility] Comment on above: Performed By: #### C CARLENE CHEATHAM, TROPI #### [place] [address] [employer]: Catalino Campbell MD Urea nitrogen [Mass/Vol] 13 mg/dL Normal 6-20 [facility] Comment on above: Performed By: #### C CARLENE CHEATHAM, TROPI #### [place] [address] [employer]ener: Catalino Campbell MD CBC with Diffon 04-20-2023 Abs. Basophil 0.00 k/uL Normal 0.0-0.2 [facility] Comment on above: Performed By: #### C DP, BMP, TROPI #### [place] [address] [employer]: Catalino Campbell MD Abs.Neutrophil (Seg) 2.50 k/uL Normal 1.8-7.7 [facility] Comment on above: Performed By: #### C DP, BMP, TROPI #### [place] [address] [employer]: Catalino Campbell MD Basophils/100 WBC (Bld) 0 % Normal 0-2 [facility] Comment on above: Performed By: #### C DP, BMP, TROPI #### [place] [address] [employer]: Catalino Campbell MD Eosinophils (Bld) [#/Vol] 0.10 10*3/uL Normal 0.0-0.4 [facility] Comment on above: Performed By: #### C DP, BMP, TROPI #### [place] [address] [employer]ener: Catalino Campbell MD Eosinophils/100 WBC (Bld) 1 % Normal 1-4 [facility] Comment on above: Performed By: #### C DP, BMP, TROPI #### [place] [address] [employer]ener: Catalino Campbell MD Erythrocyte distribution width (RBC) [Ratio] 13.4 % Normal 12.5-15.4 [facility] Comment on above: Performed By: #### C DP, BMP, TROPI #### [place] [address] [employer]ener: Catalino Campbell MD Hematocrit (Bld) [Volume fraction] 39.6 % Low 41-53 [facility] Comment on above: Performed By: #### C DP, BMP, TROPI #### [place] [id number] [employer]: Catalino Campbell MD Hemoglobin (Bld) [Mass/Vol] 13.4 g/dL Low 13.5-17.5 [facility] Comment on above: Performed By: #### C DP, BMP, TROPI #### [place] [address] [employer]ener: Catalino Campbell MD Lymphocytes (Bld) [#/Vol] 0.70 10*3/uL Low 1.0-4.8 [facility] Comment on above: Performed By: #### C DP, BMP, TROPI #### [place] [address] [employer]ener: Catalino Campbell MD Lymphocytes/100 WBC (Bld) 20 % Low 24-44 [facility] Comment on above: Performed By: #### C DP, BMP, TROPI #### [place] [address] [employer]ightener: Catalino Campbell MD MCH (RBC) [Entitic mass] 29.5 pg Normal 26-34 [facility] Comment on above: Performed By: #### C DP, BMP, TROPI #### [place] [id number] [employer]ightener: Catalino Campbell MD MCHC (RBC) [Mass/Vol] 33.9 g/dL Normal 31-37 [facility] Comment on above: Performed By: #### C DP, BMP, TROPI #### [place] [address] [employer]ightener: Catalino Campbell MD MCV (RBC) [Entitic vol] 86.9 fL Normal 80-100 [facility] Comment on above: Performed By: #### C DP, BMP, TROPI #### [place] [address] [employer]ener: Catalino Campbell MD Monocytes (Bld) [#/Vol] 0.30 10*3/uL Normal 0.1-1.2 [facility] Comment on above: Performed By: #### C DP, BMP, TROPI #### [place] [address] [employer]: Catalino Campbell MD Monocytes/100 WBC (Bld) 10 % Normal 2-11 [facility] Comment on above: Performed By: #### C DP, BMP, TROPI #### [place] [address] [employer]: Catalino Campbell MD Neutrophil (Seg) 69 % High 36-66 [facility] Comment on above: Performed By: #### C DP, BMP, TROPI #### [place] [address] [employer]ener: Catalino Campbell MD Platelet mean volume (Bld) [Entitic vol] 8.6 fL Normal 6.0-12.0 [facility] Comment on above: Performed By: #### C DP, BMP, TROPI #### [place] [address] [employer]: Catalino Campbell MD Platelets (Bld) [#/Vol] 136 10*3/uL Low 140-450 [facility] Comment on above: Performed By: #### C DP, BMP, TROPI #### [place] [address] [employer]ener: Catalino Campbell MD RBC (Bld) [#/Vol] 4.56 10*6/uL Normal 4.5-5.9 [facility] Comment on above: Performed By: #### C DP, BMP, TROPI #### [place] [address] [employer]: Catalino Campbell MD WBC (Bld) [#/Vol] 3.6 10*3/uL Normal 3.5-11.0 [facility] Comment on above: Performed By: #### C DP, BMP, TROPI #### [place] [address] [employer]ener: Catalino Campbell MD Abs. Basophil 0.00 k/uL Normal 0.0-0.2 [facility] Comment on above: Performed By: #### C DP, BMP, TROPI #### [place] [address] [employer]ener: Catalino Campbell MD Abs.Neutrophil (Seg) 2.40 k/uL Normal 1.8-7.7 [facility] Comment on above: Performed By: #### C DP, BMP, TROPI #### [place] [address] [employer]ener: Catalino Campbell MD Basophils/100 WBC (Bld) 0 % Normal 0-2 [facility] Comment on above: Performed By: #### C DP, BMP, TROPI #### [place] [address] [employer]ener: Catalino Campbell MD Eosinophils (Bld) [#/Vol] 0.10 10*3/uL Normal 0.0-0.4 [facility] Comment on above: Performed By: #### C DP, BMP, TROPI #### [place] [address] [employer]ener: Catalino Campbell MD Eosinophils/100 WBC (Bld) 2 % Normal 1-4 [facility] Comment on above: Performed By: #### C DP, BMP, TROPI #### [place] [address] [employer]ener: Catalino Campbell MD Erythrocyte distribution width (RBC) [Ratio] 13.4 % Normal 12.5-15.4 [facility] Comment on above: Performed By: #### C DP, BMP, TROPI #### [place] [address] [employer]ener: Catalino Campbell MD Hematocrit (Bld) [Volume fraction] 43.1 % Normal 41-53 [facility] Comment on above: Performed By: #### C DP, BMP, TROPI #### [place] [address] [employer]ightener: Catalino Campbell MD Hemoglobin (Bld) [Mass/Vol] 14.5 g/dL Normal 13.5-17.5 [facility] Comment on above: Performed By: #### C DP, BMP, TROPI #### [place] [address] [employer]ener: Catalino Campbell MD Lymphocytes (Bld) [#/Vol] 0.70 10*3/uL Low 1.0-4.8 [facility] Comment on above: Performed By: #### C DP, BMP, TROPI #### [place] [address] [employer]ener: Catalino Campbell MD Lymphocytes/100 WBC (Bld) 20 % Low 24-44 [facility] Comment on above: Performed By: #### C DP, BMP, TROPI #### [place] [address] [employer]ener: Catalino Campbell MD MCH (RBC) [Entitic mass] 29.6 pg Normal 26-34 [facility] Comment on above: Performed By: #### C DP, BMP, TROPI #### [place] [address] [employer]ightener: Catalino Campbell MD MCHC (RBC) [Mass/Vol] 33.8 g/dL Normal 31-37 [facility] Comment on above: Performed By: #### C DP, BMP, TROPI #### [place] [address] [employer]ightener: Catalino Campbell MD MCV (RBC) [Entitic vol] 87.5 fL Normal 80-100 [facility] Comment on above: Performed By: #### C DP, BMP, TROPI #### [place] [address] [employer]ener: Catalino Campbell MD Monocytes (Bld) [#/Vol] 0.30 10*3/uL Normal 0.1-1.2 [facility] Comment on above: Performed By: #### C DP, BMP, TROPI #### [place] [address] [employer]ener: Catalino Cambpell MD Monocytes/100 WBC (Bld) 8 % Normal 2-11 [facility] Comment on above: Performed By: #### C DP, BMP, TROPI #### [place] [address] [employer]ener: Catalino Campbell MD Neutrophil (Seg) 70 % High 36-66 [facility] Comment on above: Performed By: #### C DP, BMP, TROPI #### [place] [address] [employer]ener: Catalino Campbell MD Platelet mean volume (Bld) [Entitic vol] 8.8 fL Normal 6.0-12.0 [facility] Comment on above: Performed By: #### C DP, BMP, TROPI #### [place] [address] [employer]ener: Catalino Campbell MD Platelets (Bld) [#/Vol] 134 10*3/uL Low 140-450 [facility] Comment on above: Performed By: #### C DP, BMP, TROPI #### [place] [address] [employer]ener: Catalino Campbell MD RBC (Bld) [#/Vol] 4.92 10*6/uL Normal 4.5-5.9 [facility] Comment on above: Performed By: #### C DP, BMP, TROPI #### [place] [address] [employer]ightener: Catalino Campbell MD WBC (Bld) [#/Vol] 3.4 10*3/uL Low 3.5-11.0 [facility] Comment on above: Performed By: #### C DP, BMP, TROPI #### [address] [place], [place] [id number] [employer]ightener: Catalino Campbell MD Troponinon 04-20-2023 Troponin, High Sens 6 ng/L Normal 0-22 [facility] Comment on above: Result Comment: High Sensitivity Troponin values cannot be compared with other Troponin methodologies. Performed By: #### T ROPI #### [address] [id number] [employer]ener: Catalino Campbell MD Troponin, High Sens 7 ng/L Normal 0-22 [facility] Comment on above: Result Comment: High Sensitivity Troponin values cannot be compared with other Troponin methodologies. Performed By: #### C DP, BMP, TROPI #### [place] [id number] [place] [address] [employer]ener: Maycol Mendiola MD Troponin, High Sens 7 ng/L Normal 0-22 [facility] Comment on above: Result Comment: High Sensitivity Troponin values cannot be compared with other Troponin methodologies. Performed By: #### C DP, BMP, TROPI #### [address] [phone] [employer]ener: Catalino Campbell MD XR CHEST PORTABLEon 04-20-20 [...] Robina Perez MD 04/20/23 Final result Normal [facility] Alcohol (Ethanol)on 02-05-20 Ethanol [Mass/Vol] 88 mg/dL Normal [facility] Comment on above: Result Comment: Not Detected Basic Metabolic Panelon 01-21 Anion gap [Moles/Vol] 14 mmol/L Normal 7-16 [facility] Calcium [Mass/Vol] 9.0 mg/dL Normal 8.6-10.2 [facility] Chloride [Moles/Vol] 105 mmol/L Normal 98-107 [facility] CO2 [Moles/Vol] 23 mmol/L Normal 22-29 [facility] Creatinine [Mass/Vol] 1.0 mg/dL Normal 0.7-1.2 [facility] GFR Calculated >60 Normal >=60 [facility] Comment on above: Result Comment: Chaim [...] secretion. Glucose [Mass/Vol] 127 mg/dL High 74-99 [facility] Potassium [Moles/Vol] 3.8 mmol/L Normal 3.5-5.0 [facility] Sodium [Moles/Vol] 142 mmol/L Normal 132-146 [facility] Urea nitrogen [Mass/Vol] 16 mg/dL Normal 6-20 [facility] CBC With Platelet and Differ entialon 02-04-2023 Abs Imm Granulocytes 0.02 E9/L Normal [facility] Absolute Basophils 0.01 E9/L Normal 0.00-0.20 [facility] Absolute Eosinophils 0.07 E9/L Normal 0.05-0.50 [facility] Absolute Lymphocytes 1.22 E9/L Low 1.50-4.00 [facility] Absolute Monocytes 0.30 E9/L Normal 0.10-0.95 [facility] Absolute Neutrophils 1.90 E9/L Normal 1.80-7.30 [facility] Basophils/100 WBC (Bld) 0.3 % Normal 0.0-2.0 [facility] Eosinophils/100 WBC (Bld) 2.0 % Normal 0.0-6.0 [facility] Hematocrit (Bld) [Volume fraction] 37.9 % Normal 37.0-54.0 [facility] Hemoglobin (Bld) [Mass/Vol] 12.6 g/dL Normal 12.5-16.5 [facility] Imm Granulocytes 0.6 % Normal 0.0-5.0 [facility] Lymphocytes/100 WBC (Bld) 34.7 % Normal 20.0-42.0 [facility] MCH (RBC) [Entitic mass] 29.2 pg Normal 26.0-35.0 [facility] MCHC 33.2 % Normal 32.0-34.5 [facility] MCV (RBC) [Entitic vol] 87.7 fL Normal 80.0-99.9 [facility] Monocytes/100 WBC (Bld) 8.5 % Normal 2.0-12.0 [facility] Neutrophils/100 WBC (Bld) 53.9 % Normal 43.0-80.0 [facility] Platelet Count 134 E9/L Normal 130-450 [facility] Platelet mean volume (Bld) [Entitic vol] 10.6 fL Normal 7.0-12.0 [facility] RBC 4.32 E12/L Normal 3.80-5.80 [facility] RDW 13.0 fL Normal 11.5-15.0 [facility] WBC 3.5 E9/L Low 4.5-11.5 [facility] High Sensitivity Troponin To n 02-04-2023 High Sensitivity Troponin T <6 Normal 0-11 [facility] Comment on above: Result Comment: High Sensitivity Troponin values cannot be compared with other Troponin methodologies. Serum Drug Screenon 02-05-20 TCA Screen Negative Normal Cutoff:300 [facility] Acetaminophen [Mass/Vol] ug/mL Low 10.0-30.0 [facility] Ethanol [Mass/Vol] 216 mg/dL Normal [facility] Comment on above: Result Comment: Not Detected Salicylate <0.3 Normal 0.0-30.0 [facility] XR CHEST PORTABLEon 02-05-20 XR CHEST [...] Kristen Ascencio MD 02/04/23 Final result Normal [facility] Comment on above: Order Comment: Reaso n for exam:->chest pain Basic Metabolic Panelon 01-21 Anion gap [Moles/Vol] 12 mmol/L Normal 7-16 [facility] Calcium [Mass/Vol] 9.2 mg/dL Normal 8.6-10.2 [facility] Chloride [Moles/Vol] 102 mmol/L Normal 98-107 [facility] CO2 [Moles/Vol] 25 mmol/L Normal 22-29 [facility] Creatinine [Mass/Vol] 1.0 mg/dL Normal 0.7-1.2 [facility] GFR Calculated >60 Normal >=60 [facility] Comment on above: Result Comment: Pedrosa [...] secretion. Glucose [Mass/Vol] 91 mg/dL Normal 74-99 [facility] Potassium [Moles/Vol] 4.3 mmol/L Normal 3.5-5.0 [facility] Comment on above: Result Comment: Spec imen is moderately Hemolyzed. Result may be artificially increased. Sodium [Moles/Vol] 139 mmol/L Normal 132-146 [facility] Urea nitrogen [Mass/Vol] 17 mg/dL Normal 6-20 [facility] Basic metabolic 2000 panelon 02-02-2023 Anion gap [Moles/Vol] 12 mmol/L 7 - 16 mmol/L [facility] [employer] Calcium [Mass/Vol] 9.2 mg/dL 8.6 - 10. 2 mg/dL [facility] [employer] Chloride [Moles/Vol] 102 mmol/L 98 - 10 7 mmol/L [facility] [employer] CO2 [Moles/Vol] 25 mmol/L 22 - 29 mmol/L [facility] Creatinine [Mass/Vol] 1 mg/dL 0.7 - 1.2 mg/dL [facility] GFR/1.73 sq M.predicted among non-blacks MDRD (S/P/Bld) [Vol rate/Area] mL/min/1.73 60 - PINF mL/min/1.73 [facility] Comment on above: Pediatric calculator link https://www.kidney.org/professionals/kdoqi/gfr_calculatorped [...] 91 mg/dL 74 - 99 mg/dL [facility] Potassium [Moles/Vol] 4.3 mmol/L 3.5 - 5.0 mmol/L [facility] Comment on above: Specimen is moderate ly Hemolyzed. Result may be artificially increased. Sodium [Moles/Vol] 139 mmol/L 132 - 146 mmol/L [facility] Urea nitrogen [Mass/Vol] 17 mg/dL 6 - 20 mg/dL [facility] CBC With Platelet and Differ entialon 02-02-2023 Abs Imm Granulocytes 0.02 E9/L Normal [facility] Absolute Basophils 0.03 E9/L Normal 0.00-0.20 [facility] Absolute Eosinophils 0.08 E9/L Normal 0.05-0.50 [facility] Absolute Lymphocytes 1.03 E9/L Low 1.50-4.00 [facility] Absolute Monocytes 0.32 E9/L Normal 0.10-0.95 [facility] Absolute Neutrophils 2.82 E9/L Normal 1.80-7.30 [facility] Basophils/100 WBC (Bld) 0.7 % Normal 0.0-2.0 [facility] Eosinophils/100 WBC (Bld) 1.9 % Normal 0.0-6.0 [facility] Hematocrit (Bld) [Volume fraction] 40.0 % Normal 37.0-54.0 [facility] Hemoglobin (Bld) [Mass/Vol] 13.3 g/dL Normal 12.5-16.5 [facility] Imm Granulocytes 0.5 % Normal 0.0-5.0 [facility] Lymphocytes/100 WBC (Bld) 24.0 % Normal 20.0-42.0 [facility] MCH (RBC) [Entitic mass] 29.1 pg Normal 26.0-35.0 [facility] MCHC 33.3 % Normal 32.0-34.5 [facility] MCV (RBC) [Entitic vol] 87.5 fL Normal 80.0-99.9 [facility] Monocytes/100 WBC (Bld) 7.4 % Normal 2.0-12.0 [facility] Neutrophils/100 WBC (Bld) 65.5 % Normal 43.0-80.0 [facility] Platelet Count 147 E9/L Normal 130-450 [facility] Platelet mean volume (Bld) [Entitic vol] 11.2 fL Normal 7.0-12.0 [facility] RBC 4.57 E12/L Normal 3.80-5.80 [facility] RDW 12.8 fL Normal 11.5-15.0 [facility] WBC 4.3 E9/L Low 4.5-11.5 [facility] CBC with Auto Differentialon 02-02-2023 Basophils (Bld) [#/Vol] 0.03 10*3/uL [facility] Basophils/100 WBC (Bld) 0.7 % 0.0 - 2.0 % [facility] Eosinophils (Bld) [#/Vol] 0.08 10*3/uL [facility] Eosinophils/100 WBC (Bld) 1.9 % 0.0 - 6.0 % [facility] Erythrocyte distribution width (RBC) [Ratio] 12.8 fL 11.5 - 15.0 fL [facility] Hematocrit (Bld) [Volume fraction] 40.0 % 37.0 - 54.0 % [facility] Hemoglobin (Bld) [Mass/Vol] 13.3 g/dL 12.5 - 16.5 g/dL [facility] Immature granulocytes (Bld) [#/Vol] 0.02 10*3/uL E9/L [facility] Immature granulocytes/100 WBC (Bld) 0.5 % 0.0 - 5.0 % [facility] Interpretation and review of laboratory results Abnormal [facility] Lymphocytes (Bld) [#/Vol] 1.03 10*3/uL Low [facility] Lymphocytes/100 WBC (Bld) 24.0 % 20.0 - 42.0 % [facility] MCH (RBC) [Entitic mass] 29.1 pg 26.0 - 35.0 pg [facility] MCHC (RBC) [Mass/Vol] 33.3 % 32.0 - 34.5 % [facility] MCV (RBC) [Entitic vol] 87.5 fL 80.0 - 99.9 fL [facility] Monocytes (Bld) [#/Vol] 0.32 10*3/uL [facility] Monocytes/100 WBC (Bld) 7.4 % 2.0 - 12.0 % [facility] Neutrophils (Bld) [#/Vol] 2.82 10*3/uL [facility] Platelet mean volume (Bld) [Entitic vol] 11.2 fL 7.0 - 12.0 fL [facility] Platelets (Bld) [#/Vol] 147 10*3/uL [facility] RBC (Bld) [#/Vol] 4.57 10*6/uL [facility] Segmented neutrophils/100 WBC (Bld) 65.5 % 43.0 - 80.0 % [facility] WBC (Bld) [#/Vol] 4.3 10*3/uL Low [facility] High Sensitivity Troponin To n 02-02-2023 High Sensitivity Troponin T <6 Normal 0-11 [facility] Comment on above: Result Comment: High Sensitivity Troponin values cannot be compared with other Troponin methodologies. Prothrombin Timeon INR Coag (PPP) [Relative time] 1.1 {INR} Normal [facility] PT Coag (PPP) [Time] 12.0 s Normal 9.3-12.4 [facility] Protime-INRon 02-02-2023 INR Coag (Bld) [Relative time] 1.1 {INR} [facility] PT Coag (PPP) [Time] 12 s [facility] Troponinon 02-02-2023 Troponin, High Sensitivity ng/L 0 - 11 ng/L [facility] Comment on above: High Sensitivity Tro ponin values cannot be compared with other Troponin methodologies. [facility] Alcohol (Ethanol)on 02-02-20 Ethanol [Mass/Vol] 51 mg/dL Normal [facility] Comment on above: Result Comment: Not Detected Basic Metabolic Panelon 01-21 Anion gap [Moles/Vol] 17 mmol/L High 7-16 [facility] Calcium [Mass/Vol] 8.2 mg/dL Low 8.6-10.2 [facility] Chloride [Moles/Vol] 105 mmol/L Normal 98-107 [facility] CO2 [Moles/Vol] 20 mmol/L Low 22-29 [facility] Creatinine [Mass/Vol] 1.2 mg/dL Normal 0.7-1.2 [facility] GFR Calculated >60 Normal >=60 [facility] Comment on above: Result Comment: Chaim [...] secretion. Glucose [Mass/Vol] 104 mg/dL High 74-99 [facility] Potassium [Moles/Vol] 4.2 mmol/L Normal 3.5-5.0 [facility] Sodium [Moles/Vol] 142 mmol/L Normal 132-146 [facility] Urea nitrogen [Mass/Vol] 16 mg/dL Normal 6-20 [facility] Basic Metabolic Panel Reflex Mgon 02-01-2023 Anion gap [Moles/Vol] 7 mmol/L Normal 7-16 [facility] Calcium [Mass/Vol] 8.9 mg/dL Normal 8.6-10.2 [facility] Chloride [Moles/Vol] 104 mmol/L Normal 98-107 [facility] CO2 [Moles/Vol] 26 mmol/L Normal 22-29 [facility] Creatinine [Mass/Vol] 1.1 mg/dL Normal 0.7-1.2 [facility] GFR Calculated >60 Normal >=60 [facility] Comment on above: Result Comment: Chaim [...] secretion. Glucose [Mass/Vol] 102 mg/dL High 74-99 [facility] Magnesium [Moles/Vol] 4.8 mmol/L Normal 3.5-5.0 [facility] Sodium [Moles/Vol] 137 mmol/L Normal 132-146 [facility] Urea nitrogen [Mass/Vol] 19 mg/dL Normal 6-20 [facility] Basic metabolic 2000 panelon 02-01-2023 Anion gap [Moles/Vol] 7 mmol/L 7 - 16 mmol/L [facility] Calcium [Mass/Vol] 8.9 mg/dL 8.6 - 10. 2 mg/dL [facility] Chloride [Moles/Vol] 104 mmol/L 98 - 10 7 mmol/L [facility] CO2 [Moles/Vol] 26 mmol/L 22 - 29 mmol/L [facility] Creatinine [Mass/Vol] 1.1 mg/dL 0.7 - 1.2 mg/dL [facility] GFR/1.73 sq M.predicted among non-blacks MDRD (S/P/Bld) [Vol rate/Area] mL/min/1.73 60 - PINF mL/min/1.73 [facility] Comment on above: Pediatric calculator link [...] 102 mg/dL High 74 - 99 mg/dL [facility]ENTERRösler miniDaT [facility] Interpretation and review of laboratory results Abnormal [facility] Potassium [Moles/Vol] 4.8 mmol/L 3.5 - 5.0 mmol/L [facility] Sodium [Moles/Vol] 137 mmol/L 132 - 146 mmol/L [facility] Urea nitrogen [Mass/Vol] 19 mg/dL 6 - 20 mg/dL [facility] Anion gap [Moles/Vol] 17 mmol/L High 7 - 16 mmol/L [facility] [employer] Calcium [Mass/Vol] 8.2 mg/dL Low 8.6 - 10. 2 mg/dL [facility] Chloride [Moles/Vol] 105 mmol/L 98 - 10 7 mmol/L [facility] CO2 [Moles/Vol] 20 mmol/L Low 22 - 29 mmol/L [facility] Creatinine [Mass/Vol] 1.2 mg/dL 0.7 - 1.2 mg/dL [facility] [employer] GFR/1.73 sq M.predicted among non-blacks MDRD (S/P/Bld) [Vol rate/Area] mL/min/1.73 60 - PINF mL/min/1.73 [facility] Comment on above: Pediatric calculator link [...] mg/dL High 74 - 99 mg/dL [facility] Interpretation and review of laboratory results Abnormal [facility] Potassium [Moles/Vol] 4.2 mmol/L 3.5 - 5.0 mmol/L [facility] Sodium [Moles/Vol] 142 mmol/L 132 - 146 mmol/L [facility] Urea nitrogen [Mass/Vol] 16 mg/dL 6 - 20 mg/dL [facility] CBC With Platelet and Differ entialon 02-01-2023 Abs Imm Granulocytes 0.03 E9/L Normal [facility] Absolute Basophils 0.01 E9/L Normal 0.00-0.20 [facility] Absolute Eosinophils 0.04 E9/L Low 0.05-0.50 [facility] Absolute Lymphocytes 0.71 E9/L Low 1.50-4.00 [facility] Absolute Monocytes 0.29 E9/L Normal 0.10-0.95 [facility] Absolute Neutrophils 2.67 E9/L Normal 1.80-7.30 [facility] Basophils/100 WBC (Bld) 0.3 % Normal 0.0-2.0 [facility] Eosinophils/100 WBC (Bld) 1.1 % Normal 0.0-6.0 [facility] Hematocrit (Bld) [Volume fraction] 39.3 % Normal 37.0-54.0 [facility] Hemoglobin (Bld) [Mass/Vol] 12.9 g/dL Normal 12.5-16.5 [facility] Imm Granulocytes 0.8 % Normal 0.0-5.0 [facility] Lymphocytes/100 WBC (Bld) 18.9 % Low 20.0-42.0 [facility] MCH (RBC) [Entitic mass] 29.1 pg Normal 26.0-35.0 [facility] MCHC 32.8 % Normal 32.0-34.5 [facility] MCV (RBC) [Entitic vol] 88.5 fL Normal 80.0-99.9 [facility] Monocytes/100 WBC (Bld) 7.7 % Normal 2.0-12.0 [facility] Neutrophils/100 WBC (Bld) 71.2 % Normal 43.0-80.0 [facility] Platelet Count 131 E9/L Normal 130-450 [facility] Platelet mean volume (Bld) [Entitic vol] 11.1 fL Normal 7.0-12.0 [facility] RBC 4.44 E12/L Normal 3.80-5.80 [facility] RDW 12.8 fL Normal 11.5-15.0 [facility] WBC 3.8 E9/L Low 4.5-11.5 [facility] Abs Imm Granulocytes 0.02 E9/L Normal [facility] Absolute Basophils 0.02 E9/L Normal 0.00-0.20 [facility] Absolute Eosinophils 0.12 E9/L Normal 0.05-0.50 [facility] Absolute Lymphocytes 1.39 E9/L Low 1.50-4.00 [facility] Absolute Monocytes 0.32 E9/L Normal 0.10-0.95 [facility] Absolute Neutrophils 2.38 E9/L Normal 1.80-7.30 [facility] Basophils/100 WBC (Bld) 0.5 % Normal 0.0-2.0 [facility] Eosinophils/100 WBC (Bld) 2.8 % Normal 0.0-6.0 [facility] Hematocrit (Bld) [Volume fraction] 37.8 % Normal 37.0-54.0 [facility] Hemoglobin (Bld) [Mass/Vol] 13.0 g/dL Normal 12.5-16.5 [facility] Imm Granulocytes 0.5 % Normal 0.0-5.0 [facility] Lymphocytes/100 WBC (Bld) 32.7 % Normal 20.0-42.0 [facility] MCH (RBC) [Entitic mass] 29.8 pg Normal 26.0-35.0 [facility] MCHC 34.4 % Normal 32.0-34.5 [facility] MCV (RBC) [Entitic vol] 86.7 fL Normal 80.0-99.9 [facility] Monocytes/100 WBC (Bld) 7.5 % Normal 2.0-12.0 [facility] Neutrophils/100 WBC (Bld) 56.0 % Normal 43.0-80.0 [facility] Platelet Count 156 E9/L Normal 130-450 [facility] Platelet mean volume (Bld) [Entitic vol] 10.7 fL Normal 7.0-12.0 [facility] RBC 4.36 E12/L Normal 3.80-5.80 [facility] RDW 12.9 fL Normal 11.5-15.0 [facility] WBC 4.3 E9/L Low 4.5-11.5 [facility] CBC with Auto Differentialon 02-01-2023 Basophils (Bld) [#/Vol] 0.01 10*3/uL [facility] Basophils/100 WBC (Bld) 0.3 % 0.0 - 2.0 % [facility] Eosinophils (Bld) [#/Vol] 0.04 10*3/uL Low [facility] Eosinophils/100 WBC (Bld) 1.1 % 0.0 - 6.0 % [facility] Erythrocyte distribution width (RBC) [Ratio] 12.8 fL 11.5 - 15.0 fL [facility] Hematocrit (Bld) [Volume fraction] 39.3 % 37.0 - 54.0 % [facility] Hemoglobin (Bld) [Mass/Vol] 12.9 g/dL 12.5 - 16.5 g/dL [facility] Immature granulocytes (Bld) [#/Vol] 0.03 10*3/uL E9/L [facility] Immature granulocytes/100 WBC (Bld) 0.8 % 0.0 - 5.0 % [facility] Interpretation and review of laboratory results Abnormal [facility] Lymphocytes (Bld) [#/Vol] 0.71 10*3/uL Low [facility] Lymphocytes/100 WBC (Bld) 18.9 % Low 20.0 - 42.0 % [facility] MCH (RBC) [Entitic mass] 29.1 pg 26.0 - 35.0 pg [facility] MCHC (RBC) [Mass/Vol] 32.8 % 32.0 - 34.5 % [facility] MCV (RBC) [Entitic vol] 88.5 fL 80.0 - 99.[address] [facility] Monocytes (Bld) [#/Vol] 0.29 10*3/uL [facility] Monocytes/100 WBC (Bld) 7.7 % 2.0 - 12.0 % [facility] Neutrophils (Bld) [#/Vol] 2.67 10*3/uL [facility] Platelet mean volume (Bld) [Entitic vol] 11.1 fL 7.0 - 12.[address] [facility] Platelets (Bld) [#/Vol] 131 10*3/uL [facility] RBC (Bld) [#/Vol] 4.44 10*6/uL [facility] Segmented neutrophils/100 WBC (Bld) 71.2 % 43.0 - 80.0 % [facility] WBC (Bld) [#/Vol] 3.8 10*3/uL Low [facility] Basophils (Bld) [#/Vol] 0.02 10*3/uL [facility] Basophils/100 WBC (Bld) 0.5 % 0.0 - 2.0 % [facility] Eosinophils (Bld) [#/Vol] 0.12 10*3/uL [facility] Eosinophils/100 WBC (Bld) 2.8 % 0.0 - 6.0 % [facility] Erythrocyte distribution width (RBC) [Ratio] 12.9 fL 11.5 - 15.0 fL [facility] Hematocrit (Bld) [Volume fraction] 37.8 % 37.0 - 54.0 % [facility] Hemoglobin (Bld) [Mass/Vol] 13.0 g/dL 12.5 - 16.5 g/dL [facility] Immature granulocytes (Bld) [#/Vol] 0.02 10*3/uL E9/L [facility] Immature granulocytes/100 WBC (Bld) 0.5 % 0.0 - 5.0 % [facility] Interpretation and review of laboratory results Abnormal [facility] Lymphocytes (Bld) [#/Vol] 1.39 10*3/uL Low [facility] Lymphocytes/100 WBC (Bld) 32.7 % 20.0 - 42.0 % [facility] MCH (RBC) [Entitic mass] 29.8 pg 26.0 - 35.0 pg [facility] MCHC (RBC) [Mass/Vol] 34.4 % 32.0 - 34.5 % [facility] MCV (RBC) [Entitic vol] 86.7 fL 80.0 - 99.9 fL [facility] Monocytes (Bld) [#/Vol] 0.32 10*3/uL [facility] Monocytes/100 WBC (Bld) 7.5 % 2.0 - 12.0 % [facility] Neutrophils (Bld) [#/Vol] 2.38 10*3/uL [facility] Platelet mean volume (Bld) [Entitic vol] 10.7 fL 7.0 - 12.0 fL [facility] Platelets (Bld) [#/Vol] 156 10*3/uL [facility] RBC (Bld) [#/Vol] 4.36 10*6/uL [facility] Segmented neutrophils/100 WBC (Bld) 56.0 % 43.0 - 80.0 % [facility] WBC (Bld) [#/Vol] 4.3 10*3/uL Low [facility] CTA ABDOMEN PELVIS W CONTRAS Ton 02-01-2023 [...] Normal diameter of the inferior mesenteric artery. EKSHAWN is slightly tortuous. Normal appearance of the [...] Howard Pederson MD 02/01/23 Final result Normal [facility] Comment on above: Order Comment: Reaso [...] diarrheal process in the proper clinical setting. [facility] CONSOLIDATED EXAMINATION: CTA OF THE ABDOMEN [...] within normal limits. Subcutaneous structures appear unremarkable. [facility] CONSOLIDATED Howard Pederson MD - 02/01/2023 [...] diarrheal process in the proper clinical setting. [employer] Work Phone: CTA ABDOMEN PELVIS W CONTRAS TOrdered By: Howard Pederson on 02-01-2023 [employer] Work Phone: CTA CHEST W CONTRASTon 02-01 [...] Howard Pederson MD 02/01/23 Final result Normal [facility] Comment on above: Order Comment: Reaso [...] 3. Cardiomegaly and mildly dilated left ventricle. [facility] CONSOLIDATED EXAMINATION: CTA OF THE CHEST 02/01/2023 [...] No acute bone or soft tissue abnormality. [facility] CONSOLIDATED Howard Pederson MD - 02/01/2023 EXAMINATION: [...] Cardiomegaly and mildly dilated left ventricle. [facility] Work Phone: [facility] [employer] Phone: Comprehensive Metabolic Pane l reflex Mgon 02-01-2023 Albumin [Mass/Vol] 4.0 g/dL Normal 3.5-5.2 [facility] ALP [Catalytic activity/Vol] 63 U/L Normal 40-129 [facility] ALT [Catalytic activity/Vol] 31 U/L Normal 0-40 [facility] Anion gap [Moles/Vol] 20 mmol/L High 7-16 [facility] AST [Catalytic activity/Vol] 22 U/L Normal 0-39 [facility] Bilirubin [Mass/Vol] 0.3 mg/dL Normal 0.0-1.2 [facility] Calcium [Mass/Vol] 8.6 mg/dL Normal 8.6-10.2 [facility] Chloride [Moles/Vol] 97 mmol/L Low 98-107 [facility] CO2 [Moles/Vol] 19 mmol/L Low 22-29 [facility] Creatinine [Mass/Vol] 1.3 mg/dL High 0.7-1.2 [facility] GFR Calculated >60 Normal >=60 [facility] Comment on above: Result Comment: Chaim [...] secretion. Glucose [Mass/Vol] 116 mg/dL High 74-99 [facility] Magnesium [Moles/Vol] 3.2 mmol/L Low 3.5-5.0 [facility] Protein [Mass/Vol] 6.7 g/dL Normal 6.4-8.3 [facility] Sodium [Moles/Vol] 136 mmol/L Normal 132-146 [facility] Urea nitrogen [Mass/Vol] 16 mg/dL Normal 6-20 [facility] Comprehensive metabolic 2000 panelon 02-01-2023 Albumin [Mass/Vol] 4 g/dL 3.5 - 5.2 g/dL [facility] ALP [Catalytic activity/Vol] 63 U/L 40 - 129 U/L [facility] ALT [Catalytic activity/Vol] 31 U/L 0 - 40 U/L [facility] Anion gap [Moles/Vol] 20 mmol/L High 7 - 16 mmol/L [facility] AST [Catalytic activity/Vol] 22 U/L 0 - 39 U/L [facility] Bilirubin [Mass/Vol] 0.3 mg/dL 0.0 - 1 .2 mg/dL [facility] Calcium [Mass/Vol] 8.6 mg/dL 8.6 - 10. 2 mg/dL [facility] Chloride [Moles/Vol] 97 mmol/L Low 98 - 10 7 mmol/L [facility] CO2 [Moles/Vol] 19 mmol/L Low 22 - 29 mmol/L [facility] [employer] Creatinine [Mass/Vol] 1.3 mg/dL High 0.7 - 1.2 mg/dL [facility] [employer] GFR/1.73 sq M.predicted among non-blacks MDRD (S/P/Bld) [Vol rate/Area] mL/min/1.73 60 - PINF mL/min/1.73 [facility]ENTERMonday[facility] Properties Comment on above: Pediatric calculator link https://www.kidney.org/professionals/kdoqi/gfr_calculatorped [...] 116 mg/dL High 74 - 99 mg/dL [facility] Interpretation and review of laboratory results Abnormal [facility] Potassium [Moles/Vol] 3.2 mmol/L Low 3.5 - 5.0 mmol/L [facility] Protein [Mass/Vol] 6.7 g/dL 6.4 - 8.3 g/dL [facility] Sodium [Moles/Vol] 136 mmol/L 132 - 146 mmol/L [facility] Urea nitrogen [Mass/Vol] 16 mg/dL 6 - 20 mg/dL [facility] EKG 12 LeadOrdered By: Rhona Davies on 02-01-2023 Atrial Rate 74 BPM [employer] Work Phone: P Wren 45 degrees [employer] Work Phone: P-R Interval 186 ms [employer] Work Phone: Q-T Interval 362 ms [employer] Work Phone: QRS Duration 98 ms [employer] Work Phone: QTc Calculation (Bazett) 401 ms [employer] Work Phone: R Wren 1 degrees [employer] Work Phone: T Wren 18 degrees [employer] Work Phone: Ventricular Rate 74 BPM [employer] Work Phone: MADHURI [employer] Work Phone: EKG 12 Leadon 02-01-2023 Normal sinus rhythm Normal ECG When compared with ECG of 01-FEB-2023 00:11, No significant change was found Confirmed by Cody Davies () on 02/01/2023 5:24:53 PM [facility] MUSE Cody Davies D O - 02/01/2023 Normal sinus rhythm Normal ECG When compared with ECG of 01-FEB-2023 00:11, No significant change was found Confirmed by Cody Davies () on 02/01/2023 5:24:53 PM [employer] Work Phone: Ethanolon 02-01-2023 Ethanolamine [Mass/Vol] 51 mg/dL [employer] Comment on above: Not Detected Ethanolamine [Mass/Vol]on [employer] Hepatic Function Panelon Albumin [Mass/Vol] 4.2 g/dL 3.5 - 5.2 g/dL [employer] ALP [Catalytic activity/Vol] 72 U/L 40 - 129 U/L [employer] ALT [Catalytic activity/Vol] 30 U/L 0 - 40 U/L [employer] AST [Catalytic activity/Vol] 21 U/L 0 - 39 U/L [employer] Bilirubin [Mass/Vol] 0.3 mg/dL 0.0 - 1 .2 mg/dL [employer] Bilirubin.direct [Mass/Vol] mg/dL 0.0 - 0.3 mg/dL [employer] Bilirubin.indirect [Mass/Vol] see below 0.0 - 1.0 mg/dL [facility] Comment on above: Indirect Bilirubin c annot be calculated since Total Bilirubin and/or Direct Bilirubin is below measurable range. Protein [Mass/Vol] 7.0 g/dL 6.4 - 8.3 g/dL [facility] High Sensitivity Troponin To n 02-01-2023 High Sensitivity Troponin T <6 Normal 0-11 [facility] Comment on above: Result Comment: High Sensitivity Troponin values cannot be compared with other Troponin methodologies. High Sensitivity Troponin T <6 Normal 0-11 [facility] Comment on above: Result Comment: High Sensitivity Troponin values cannot be compared with other Troponin methodologies. High Sensitivity Troponin T 6 ng/L Normal 0-11 [facility] Comment on above: Result Comment: High Sensitivity Troponin values cannot be compared with other Troponin methodologies. Lactic Acidon 02-01-2023 Lactate [Moles/Vol] 0.8 mmol/L Normal 0.5-2.2 [facility] Lactate (BldV) [Moles/Vol] 0.8 mmol/L 0.5 - 2.2 mmol/L [facility] Lipaseon 02-01-2023 Lipase [Catalytic activity/Vol] 34 U/L Normal 13-60 [facility] Lipase [Catalytic activity/Vol] 34 U/L 13 - 60 U/L [facility] Liver Panelon 02-01-2023 Albumin [Mass/Vol] 4.2 g/dL Normal 3.5-5.2 [facility] ALP [Catalytic activity/Vol] 72 U/L Normal 40-129 [facility] ALT [Catalytic activity/Vol] 30 U/L Normal 0-40 [facility] AST [Catalytic activity/Vol] 21 U/L Normal 0-39 [facility] Bilirubin [Mass/Vol] 0.3 mg/dL Normal 0.0-1.2 [facility] Bilirubin Indirect see below Normal 0.0-1.0 [facility] Comment on above: Result Comment: Julia rect Bilirubin cannot be calculated since Total Bilirubin and/or Direct Bilirubin is below measurable range. Bilirubin.indirect [Mass/Vol] mg/dL Normal 0.0-0.3 [facility] Protein [Mass/Vol] 7.0 g/dL Normal 6.4-8.3 [facility] Magnesiumon 02-01-2023 Magnesium [Mass/Vol] 2.1 mg/dL Normal 1.6-2.6 [facility] Magnesium [Mass/Vol] 2.1 mg/dL 1.6 - 2 .6 mg/dL [facility] Magnesium [Mass/Vol]on 02-01 [facility] No Panel Informationon 02-01 Radiology Study observation (narrative) [facility] Work Phone: [facility] Serum Drug Screenon 02-02-20 TCA Screen Negative Normal Cutoff:300 [facility] Acetaminophen [Mass/Vol] ug/mL Low 10.0-30.0 [facility] Ethanol [Mass/Vol] mg/dL Normal [facility] Comment on above: Result Comment: Not Detected Salicylate <0.3 Normal 0.0-30.0 [facility] TCA Screen Negative Normal Cutoff:300 [facility] Acetaminophen [Mass/Vol] ug/mL Low [facility] Ethanolamine [Mass/Vol] <10 mg/dL [facility] Comment on above: Not Detected Interpretation and review of laboratory results Abnormal [facility] Salicylates [Mass/Vol] mg/dL 0.0 - 30.0 mg/dL [facility] TCA Scrn Negative [facility] Acetaminophen [Mass/Vol] ug/mL Low 10.0-30.0 [facility] Ethanol [Mass/Vol] 152 mg/dL Normal [facility] Comment on above: Result Comment: Not Detected Salicylate <0.3 Normal 0.0-30.0 [facility] Troponinon 02-01-2023 Troponin, High Sensitivity ng/L 0 - 11 ng/L [facility] Comment on above: High Sensitivity Tro ponin values cannot be compared with other Troponin methodologies. Troponin, High Sensitivity ng/L 0 - 11 ng/L [facility] Comment on above: High Sensitivity Tro ponin values cannot be compared with other Troponin methodologies. [facility] Troponin, High Sensitivity 6 ng/L 0 - 11 ng/L [facility] Comment on above: High Sensitivity Tro ponin values cannot be compared with other Troponin methodologies. [facility] UR Drugs of Abuse Panelon UR Amphetamines Screen Not detected Normal Negative <1000 ng/mL [facility] UR Barbiturates Screen Not detected Normal Negative < 200 ng/mL [facility] UR Benzo Screen Not detected Normal Negative < 200 ng/mL [facility] UR Cannabinoids Screen Not detected Normal Negative < 50ng/mL [facility] UR Cocaine Screen Not detected Normal Negative < 300 ng/mL [facility] UR Fentanyl Screen Not detected Normal Negative <1 ng/mL [facility] UR Methadone Screen Not detected Normal Negative <300 ng/mL [facility] UR Opiates Screen Not detected Normal Negative < 300ng/mL [facility] Comment on above: Result Comment: Note : The Opiate Screen is not intended to detect Oxycodone. UR Oxycodone Screen Not detected Normal Negative <100 ng/mL [facility] UR PCP Screen Not detected Normal Negative < 25 ng/mL [facility] Drug Screen Comment see below Normal [facility] Comment on above: Result Comment: Thes e drug screen results are for medical purposes only and should not be considered definitive or confirmed. The drug methodology concentration value must be greater than or equal to the cutoff to be reported as positive. Confirmatory testing orders and/or interpretive screening questions can be directed to toxicology at [phone]. The absence of expected drug(s) and/or metabolite(s) may be due to inappropriate timing of specimen collection relative to drug administration, poor drug absorption, diluted/adulterated urine, or limitations of screening testing methodology. URINE DRUG SCREENon 02-02-20 23 Amphetamines Ql (U) Not detected Negative <1000 ng/mL [facility] Barbiturates Screen Ql (U) Not detected Negative < 200 ng/mL [facility] Benzodiazepines Ql (U) Not detected Negative < 200 ng/mL [facility] Cannabinoids Screen Ql (U) Not detected Negative < 50ng/mL [facility] Cocaine Ql (U) Not detected Negative < 300 ng/mL [facility] Drug screen comment (U) [Interp] see below [facility] Comment on above: These drug screen re sults are for medical purposes only and should not be considered definitive or confirmed. The drug methodology concentration value must be greater than or equal to the cutoff to be reported as positive. Confirmatory testing orders and/or interpretive screening questions can be directed to toxicology at [phone]. The absence of expected drug(s) and/or metabolite(s) may be due to inappropriate timing of specimen collection relative to drug administration, poor drug absorption, diluted/adulterated urine, or limitations of screening testing methodology. FENTANYL SCREEN, URINE Not detected Negative <1 ng/mL [facility] Methadone Screen Ql (U) Not detected Negative <300 ng/mL [facility] Opiates Screen Ql (U) Not detected Negati ve < 300ng/mL [facility] Comment on above: Note: The Opiate Scr een is not intended to detect Oxycodone. Oxycodone Urine Not detected Negative <100 ng/mL [facility] Phencyclidine Ql (U) Not detected Negativ e < 25 ng/mL [facility] Urinalysis with Microscopico n 02-01-2023 Bacteria LM Ql (Urine sed) NONE SEEN None Seen /HPF [facility] Bilirubin Ql (U) Negative Negative [facility] Clarity (U) Clear Clear [facility] Color (U) Yellow Straw/Yellow [facility] Glucose Test strip (U) [Mass/Vol] Negative Negative mg/dL [facility] [facility] Hemoglobin Ql (U) Negative Negative [facility] Ketones (U) [Mass/Vol] Negative Negative mg/dL [facility] Leukocyte esterase Test strip Ql (U) Negative Negative [facility] Nitrite Ql (U) Negative Negative [facility] pH (U) 5.5 [pH] 5.0 - 9.0 [facility] Protein (U) [Mass/Vol] Negative Negative mg/dL [facility] RBC LM.HPF (Urine sed) [#/Area] NONE [facility] Specific gravity (U) [Rel density] 1.010 1.005 - 1.030 [facility] Urobilinogen Qn (U) 0.2 NINF MADHURI Willett [facility] WBC LM.HPF (Urine sed) [#/Area] NONE [facility] Urinalysis, with microscopic on 02-01-2023 Urine Bacteria NONE SEEN Normal None Seen [facility] Urine RBC NONE Normal 0-2 [facility] Urine WBC NONE Normal 0-5 [facility] Bilirubin Ql (U) Negative Normal Negative [facility] Clarity (U) Clear Normal Clear [facility] Color (U) Yellow Normal Straw/Yellow [facility] Glucose Ql (U) Negative Normal Negative [facility] Hemoglobin Ql (U) Negative Normal Negative [facility] Ketones Ql (U) Negative Normal Negative [facility] Leukocyte esterase Test strip Ql (U) Negative Normal Negative [facility] Nitrite Ql (U) Negative Normal Negative [facility] pH (U) 5.5 [pH] Normal 5.0-9.0 [facility] Protein Ql (U) Negative Normal Negative [facility] Specific gravity (U) [Rel density] 1.010 Normal 1.005-1.030 [facility] Urobilinogen Qn (U) 0.2 {Gia'U}/dL Normal < 2.0 [facility] ALCOHOLon 01-29-2023 Ethanol [Mass/Vol] mg/dL Normal [place] on/[facility] Comment on above: Result Comment: FOR MEDICAL USE ONLY. . REF VALUES <10 Performed By: #### A #### [facility] [address] [place] [address] BASIC METABOLIC PANELon Anion gap [Moles/Vol] 11 mmol/L Normal 10 - 20 Ankit inson/[facility] Comment on above: Performed By: #### B MP #### [address] [address] Calcium [Mass/Vol] 8.9 mg/dL Normal 8.6 - 10.3 [facility] Comment on above: Performed By: #### B MP #### [address] [address] Chloride [Moles/Vol] 104 mmol/L Normal 98 - 107 [facility] Comment on above: Performed By: #### B MP #### [address] [address] Creatinine [Mass/Vol] 0.97 mg/dL Normal 0.50 - 1.30 [facility] Comment on above: Performed By: #### B MP #### [address] [address] eGFR MALE >90 Normal >90 [facility] Comment on above: Result Comment: CALC ULATIONS OF ESTIMATED GFR ARE PERFORMED USING THE 2020 CKD-EPI STUDY REFIT EQUATION WITHOUT THE RACE VARIABLE FOR THE IDMS-TRACEABLE CREATININE METHODS. https://jasn.asnjournals.org/content/early//ASN.859705 1146 Performed By: #### B MP #### [address] [address] Glucose [Mass/Vol] 115 mg/dL High 74 - 99 [facility] Comment on above: Performed By: #### B MP #### [address] [address] HCO3 (Bld) [Moles/Vol] 25 mmol/L Normal 21 - 32 [facility] Comment on above: Performed By: #### B MP #### [address] [address] Potassium [Moles/Vol] 3.9 mmol/L Normal 3.5 - 5.3 Ankit [facility] Comment on above: Performed By: #### B MP #### [place] [address] [address] Sodium [Moles/Vol] 136 mmol/L Normal 136 - 145 [place] [facility] Comment on above: Performed By: #### B MP #### [address] [address] Urea nitrogen [Mass/Vol] 19 mg/dL Normal 6 - 23 [facility] Comment on above: Performed By: #### B MP #### [address] [address] CBC AND DIFFERENTIALon 01-29 % AUTOMATED IMMATURE GRAN 0.3 % Normal 0.0 - 0.9 [facility] Comment on above: Result Comment: Kath ture Granulocyte Count (IG) includes promyelocytes, myelocytes and metamyelocytes but does not include bands. Percent differential counts (%) should be interpreted in the context of the absolute cell counts (cells/L). Performed By: #### C BCDF #### [place] [id number] Basophils (Bld) [#/Vol] 0.02 10*3/uL Normal 0.00 - 0.10 [facility] Comment on above: Performed By: #### C BCDF #### [address] [address] Basophils/100 WBC (Bld) 0.5 % Normal 0.0 - 2.0 [facility] Comment on above: Performed By: #### C BCDF #### [address] [address] Eosinophils (Bld) [#/Vol] 0.10 10*3/uL Normal 0.00 - 0.70 [facility] Comment on above: Performed By: #### C BCDF #### [address] [address] Eosinophils/100 WBC (Bld) 2.7 % Normal 0.0 - 6.0 [facility] Comment on above: Performed By: #### C BCDF #### [address] [address] Erythrocyte distribution width (RBC) [Ratio] 13.0 % Normal 11.5 - 14.5 [facility] Comment on above: Performed By: #### C BCDF #### [address] [address] Hematocrit (Bld) [Volume fraction] 37.2 % Low 41.0 - 52.0 [facility] Comment on above: Performed By: #### C BCDF #### [address] [address] Hemoglobin (Bld) [Mass/Vol] 12.6 g/dL Low 13.5 - 17.5 [facility] Comment on above: Performed By: #### C BCDF #### [place] [address] Lymphocytes (Bld) [#/Vol] 1.12 10*3/uL Low 1.20 - 4.80 [facility] Comment on above: Performed By: #### C BCDF #### [address] [address] Lymphocytes/100 WBC (Bld) 29.9 % Normal 13.0 - 44.0 [facility] Comment on above: Performed By: #### C BCDF #### [address] [address] MCHC (RBC) [Mass/Vol] 33.9 g/dL Normal 32.0 - 36.0 [facility] Comment on above: Performed By: #### C BCDF #### [address] [address] MCV (RBC) [Entitic vol] 85 fL Normal 80 - 100 [facility] Comment on above: Performed By: #### C BCDF #### [address] [address] Monocytes (Bld) [#/Vol] 0.35 10*3/uL Normal 0.10 - 1.00 [facility] Comment on above: Performed By: #### C BCDF #### [address] [address] Monocytes/100 WBC (Bld) 9.4 % Normal 2.0 - 10.0 [facility] Comment on above: Performed By: #### C BCDF #### [address] [address] Neutrophils (Bld) [#/Vol] 2.14 10*3/uL Normal 1.20 - 7.70 [facility] Comment on above: Performed By: #### C BCDF #### [address] [address] Neutrophils/100 WBC (Bld) 57.2 % Normal 40.0 - 80.0 [facility] Comment on above: Performed By: #### C BCDF #### [address] [address] Platelets (Bld) [#/Vol] 150 10*3/uL Normal 150 - 450 [facility] Comment on above: Performed By: #### C BCDF #### [address] [address] RBC 4.39 x10E12/L Low 4.50 - 5.90 [place]/[facility] Comment on above: Performed By: #### C BCDF #### [address] [address] WBC (Bld) [#/Vol] 3.7 10*3/uL Low 4.4 - 11.3 [place] [facility] Comment on above: Performed By: #### C BCDF #### [address] [address] DRUG SCREEN,URINEon 01-30-20 23 AMPHETAMINE SCREEN,U Negative Normal NEGATIVE [place] n[place]/[facility] Comment on above: Result Comment: CUTO FF LEVEL: 500 NG/ML Cross-reactivity has been reported with high concentrations of the following drugs: buproprion, chloroquine, chlorpromazine, ephedrine, mephentermine, fenfluramine, phentermine, phenylpropanolamine, pseudoephedrine, and propranolol. Performed By: #### D RUG3 #### [address] [address] BARBITURATES SCREEN,U Negative Normal NEGATIVE [facility] Comment on above: Result Comment: CUTO FF LEVEL: 200 NG/ML Performed By: #### D RUG3 #### [address] [address] BENZODIAZEPINES SCREEN,U Negative Normal NEGATIVE [facility] Comment on above: Result Comment: CUTO FF LEVEL: 200 NG/ML Performed By: #### D RUG3 #### [address] [address] CANNABINOIDS SCREEN,U Negative Normal NEGATIVE [facility] Comment on above: Result Comment: CUTO FF LEVEL: 50 NG/ML Performed By: #### D RUG3 #### [address] [address] COCAINE METABOLITE SCREEN,U Negative Normal NEGATIVE [facility] Comment on above: Result Comment: CUTO FF LEVEL: 150 NG/ML Performed By: #### D RUG3 #### [address] [address] DRUG SCREEN COMMENT SEE BELOW Normal [place] son/[facility] Comment on above: Result Comment: Drug screen results are presumptive and should not be used to assess compliance with prescribed medication. Contact the performing [facility] laboratory to add-on definitive confirmatory testing [...] directors. Performed By: #### D RUG3 #### [address] [address] FENTANYL SCREEN,URINE Negative Normal NEGATIVE [facility] Comment on above: Result Comment: CUTO FF LEVEL: 5 NG/ML Performed By: #### D RUG3 #### [place] [address] METHADONE SCREEN,U Negative Normal NEGATIVE [place]/[facility] Comment on above: Result Comment: CUTO FF LEVEL: 150 NG/ML The metabolite P-rwsfl-wwhraneiirswrv (LAAM) is not detected by this method in concentrations that would be found in the urine of patients on LAAM therapy. Performed By: #### D RUG3 #### [place] [address] OPIATES SCREEN,U Negative Normal NEGATIVE [place] /[facility] Comment on above: Result Comment: CUTO FF LEVEL: 300 NG/ML The opiate screen does not detect fentanyl, meperidine, or tramadol. Oxycodone is not consistently detected (refer to Oxycodone Screen, Urine result). Performed By: #### D RUG3 #### [place] [address] OXYCODONE SCREEN,U Negative Normal NEGATIVE [place] Comment on above: Result Comment: CUTO FF LEVEL: 100 NG/ML This test will accurately detect both oxycodone and oxymorphone. Performed By: #### D RUG3 #### [place] [address] PCP SCREEN,U Negative Normal NEGATIVE [place]/[facility] Comment on above: Result Comment: CUTO FF LEVEL: 25 NG/ML Cross-reactivity has been reported with dextromethorphan. Performed By: #### D RUG3 #### [place] [address] MAGNESIUMon 01-29-2023 Magnesium [Mass/Vol] 1.98 mg/dL Normal 1.60 - 2.40 Ankit inson/[facility] Comment on above: Performed By: #### M G #### [place] [address] Provider Note - ED v3on 05-0 Provider [...] 9 mmol/L Low 10 - 25 [facility] Comment on above: Performed By: #### V FPA4 #### [address] [address] BASE EXCESS-BLOOD 0.7 mmol/L Normal -2.0 - 3.0 [facility] Comment on above: Performed By: #### V FPA4 #### [address] [address] BICARB, CALCULATED 25.4 mmol/L Normal 22.0 - 26.0 [facility]un [facility] Comment on above: Performed By: #### V FPA4 #### [address] [address] CALCIUM,IONIZED 1.19 mmol/L Normal 1.10 - 1.33 [facility] Comment on above: Performed By: #### V FPA4 #### [place] [address] Chloride [Moles/Vol] 105 mmol/L Normal 98 - 107 [facility] Comment on above: Performed By: #### V FPA4 #### [address] [address] Glucose [Mass/Vol] 114 mg/dL High 74 - 99 [facility] Comment on above: Performed By: #### V FPA4 #### [address] [address] Hematocrit (Bld) [Volume fraction] 40.0 % Low 41.0 - 52.0 [facility] Comment on above: Performed By: #### V FPA4 #### [address] [address] Hemoglobin (Bld) [Mass/Vol] 13.2 g/dL Low 13.5 - 17.5 [facility] Comment on above: Performed By: #### V FPA4 #### [address] [address] Lactate [Moles/Vol] 1.0 mmol/L Normal 0.4 - 2.0 [place] [facility] Comment on above: Performed By: #### V FPA4 #### [address] [address] OXY HGB 93.6 % High 45.0 - 75.0 [facility] Comment on above: Performed By: #### V FPA4 #### [address] [address] Oxygen (Bld) [Partial pressure] 69 mm[Hg] High 35 - 45 [facility] Comment on above: Performed By: #### V FPA4 #### [address] [address] PATIENT TEMPERATURE 37.0 degrees C Normal [facility] Comment on above: Result Comment: NOTE : PATIENT RESULTS ARE NOT CORRECTED FOR TEMPERATURE. Performed By: #### V FPA4 #### [address] [address] PCO2 40 mmHg Low 41 - 51 [facility] Comment on above: Performed By: #### V FPA4 #### [address] [address] pH (Bld) 7.41 [pH] Normal 7.33 - 7.43 [facility] Comment on above: Performed By: #### V FPA4 #### [address] [address] Potassium [Moles/Vol] 3.9 mmol/L Normal 3.5 - 5.3 [facility] Comment on above: Performed By: #### V FPA4 #### [address] [address] SO2 95 % High 45 - 75 [facility] Comment on above: Performed By: #### V FPA4 #### [address] [address] Sodium [Moles/Vol] 135 mmol/L Low 136 - 145 [place] [facility] Comment on above: Performed By: #### V FPA4 #### [facility] [address] [place] [address] CBC with Diffon 01-22-2023 AB IMMATURE NEUT 0.00 K/UL Normal 0.0-0.1 [facility] Comment on above: Performed By: #### C BCD #### [facility] [address] [address] ABS BASO 0.02 K/UL Normal 0.00-0.22 [facility] Comment on above: Performed By: #### C BCD #### [facility] [address] [address] ABS EOS 0.07 K/UL Normal 0-0.45 [facility] Comment on above: Performed By: #### C BCD #### [facility] [place] [address] [address] [facility] [place] [address] ABS NEUTROPHILS 2.30 K/UL Normal 1.8-7.7 [facility] Comment on above: Performed By: #### C BCD #### [facility] [address] [address] ABS.NEUT.CALCULATED 2.30 K/UL Normal [facility] Comment on above: Result Comment: Perf ormed at [address] [place] [address] Performed By: #### C BCD #### [address] [address] Basophils/100 WBC (Bld) 0.50 % Normal 0-1 [facility] Comment on above: Performed By: #### C BCD #### [facility] [address] [address] DIFF TYPE AUTO DIFF Normal [facility] Comment on above: Performed By: #### C BCD #### [facility] [address] [address] Eosinophils/100 WBC (Bld) 1.80 % Normal 0-3 [facility] Comment on above: Performed By: #### C BCD #### [facility] [address] [address] Erythrocyte distribution width (RBC) [Ratio] 12.6 % Normal 11.7-15.0 [facility] Comment on above: Performed By: #### C BCD #### [facility] [address] [place] [address] Hematocrit (Bld) [Volume fraction] 38.6 % Low 41-50 [facility] Comment on above: Performed By: #### C BCD #### [facility] [place] [address] [place] [address] Hemoglobin (Bld) [Mass/Vol] 13.1 g/dL Low 13.5-16.5 [facility] Comment on above: Performed By: #### C BCD #### [facility] [place] [address] [place] [address] Lymphocytes (Bld) [#/Vol] 1.08 10*3/uL Low 1.2-3.2 [facility] Comment on above: Performed By: #### C BCD #### [place] [address] [place] [address] Lymphocytes/100 WBC (Bld) 28.50 % Normal 20-40 [facility] Comment on above: Performed By: #### C BCD #### [facility] [place] [address] [place] [address] MCH (RBC) [Entitic mass] 29.2 pg Normal 26-34 [facility] Comment on above: Performed By: #### C BCD #### [place] [address] [place] [address] MCHC 33.9 % Normal 31-37 [facility] Comment on above: Performed By: #### C BCD #### [facility] [place] [address] [place] [address] MCV (RBC) [Entitic vol] 86.0 fL Normal 80-100 [facility] Comment on above: Performed By: #### C BCD #### [facility] [place] [address] [place] [address] MEAN PLT VOL 11.3 CU Normal 7.0-12.6 [facility] Comment on above: Performed By: #### C BCD #### [facility] [place] [address] [place] [address] Monocytes (Bld) [#/Vol] 0.32 10*3/uL Normal 0-0.8 [facility] Comment on above: Performed By: #### C BCD #### [facility] [place] [address] [place] [address] Monocytes/100 WBC (Bld) 8.40 % High 0-8 [facility] Comment on above: Performed By: #### C BCD #### [facility] [place] [address] [place] [address] Neutrophils/100 WBC (Bld) 0.00 % Normal 0.0-1.0 [facility] Comment on above: Performed By: #### C BCD #### [facility] [place] [address] [place] [address] Neutrophils/100 WBC (Bld) 60.80 % Normal 50-70 [facility] Comment on above: Performed By: #### C BCD #### [place] [address] [place] [address] NRBC'S 0 /100 WBC Normal 0 [facility] Comment on above: Performed By: #### C BCD #### [place] [address] [place] [address] Platelets (Bld) [#/Vol] 156 10*3/uL Normal 150-450 [facility] Comment on above: Performed By: #### C BCD #### [place] [address] [place] [address] RBC (Bld) [#/Vol] 4.49 10*6/uL Low 4.5-5.5 [facility] Comment on above: Performed By: #### C BCD #### [facility] [place] [address] [place] [address] RDW-SD 38.7 FL Normal 37.0-54.0 [facility] Comment on above: Performed By: #### C BCD #### [facility] [place] [address] [place] [address] WBC (Bld) [#/Vol] 3.8 10*3/uL Low 4.5-11.0 [facility] Comment on above: Performed By: #### C BCD #### [address] [address] CHEST 2 VIEWon 01-22-2023 CHEST 2 VIEW *FINAL Date of Service: 01/22/2023 20:03 Adm #: [id number] Reading Dr:BRYAN BOLANOS Signoff Dr: BRYAN BOLANOS PROCEDURE: CHEST 2 VIEW - WXR 0020 REASON FOR EXAM: cp RESULT: Patient Name: HOSEA ALVAREZ STUDY: CHEST 2 VIEW 01/22/2023 8:03 pm INDICATION: Chest pain after drinking caffeine COMPARISON: 09/05/2021 ACCESSION NUMBER(S): [id number] ORDERING CLINICIAN: ELVIRA MCNALLY TECHNIQUE: PA and lateral views of the chest were acquired. FINDINGS: The cardiac size is at the upper range of normal with tortuosity of the descending thoracic aorta. The lungs are clear without pleural abnormality. IMPRESSION: No acute cardiopulmonary disease. Dictation workstation: [id number] Original Interpreting Physician: BRYAN BOLANOS M.D. Original Transcribed by/Date: MMODAL Jan 22 2023 7:26P Original Electronically Signed by/Date: BRYAN BOLANOS M.D. Jan 22 2023 8:36P Addendum Interpreting Physician: Addendum Transcribed by/Date: NO ADDENDUM Addendum Electronically Signed by/Date: Normal [facility] COMPREHENSIVE METABOLIC PANE Bart 01-22-2023 Albumin [Mass/Vol] 4.3 g/dL Normal 3.5-5.0 [facility] Comment on above: Performed By: #### E JOHN #### [address] [address] Albumin/Globulin [Mass ratio] 1.6 {ratio} Normal 1.5-3.0 [facility] Comment on above: Performed By: #### E JOHN #### [facility] [address] [address] ALP [Catalytic activity/Vol] 66 U/L Normal 35-125 [facility] Comment on above: Performed By: #### E JOHN #### [facility] [address] [place] [address] ALT [Catalytic activity/Vol] 33 U/L Normal 5-40 [facility] Comment on above: Performed By: #### E JOHN #### [facility] [address] [place] [address] Anion gap [Moles/Vol] 12 mmol/L Normal 0-19 [facility] Comment on above: Performed By: #### E JOHN #### [facility] [address] [place] [address] AST [Catalytic activity/Vol] 22 U/L Normal 5-40 [facility] Comment on above: Performed By: #### E JOHN #### [facility] [address] [place] [address] Bilirubin [Mass/Vol] 0.2 mg/dL Normal 0.1-1.2 [facility] Comment on above: Performed By: #### E JOHN #### [facility] [address] [place] [address] Calcium [Mass/Vol] 9.1 mg/dL Normal 8.5-10.4 [facility] Comment on above: Performed By: #### E JOHN #### [facility] [address] [place] [address] Chloride [Moles/Vol] 101 mmol/L Normal 97-107 [facility] Comment on above: Performed By: #### E JOHN #### [facility] [address] [place] [address] CO2 [Moles/Vol] 25 mmol/L Normal 24-31 [facility] Comment on above: Performed By: #### E JOHN #### [facility] [address] [place] [address] Creatinine [Mass/Vol] 1.0 mg/dL Normal 0.4-1.6 [facility] Comment on above: Performed By: #### E JOHN #### Main Laboratory [facility] [address] [place] [address] ESTIMATED GFR 91 mL/min/1.73 m2 [facility] Comment on above: Result Comment: CALCULATIONS OF ESTIMATED GFR ARE PERFORMED USING THE 2021 CKD-EPI STUDY REFIT EQUATION WITHOUT THE RACE VARIABLE FOR THE IDMS-TRACEABLE CREATININE METHODS. https://jasn.asnjournals.org/content//ASN.929403 2831 Performed at [address] [place] [address] Performed By: #### E JOHN #### [address] [address] Globulin (S) [Mass/Vol] 2.7 g/dL Normal 1.9-3.7 [facility] Comment on above: Performed By: #### E JOHN #### [address] [address] Glucose [Mass/Vol] 122 mg/dL High 65-99 [facility] Comment on above: Performed By: #### E JOHN #### [address] [address] Potassium [Moles/Vol] 4.1 mmol/L Normal 3.4-5.1 [facility] Comment on above: Performed By: #### E JOHN #### [address] [address] Protein [Mass/Vol] 7.0 g/dL Normal 5.9-7.9 [facility] Comment on above: Performed By: #### E JOHN #### [address] [address] Sodium [Moles/Vol] 138 mmol/L Normal 133-145 [facility] Comment on above: Performed By: #### E JOHN #### [facility] [address] [address] Urea nitrogen [Mass/Vol] 18 mg/dL Normal 8-25 [facility] Comment on above: Performed By: #### E JOHN #### [facility] [address] [address] Urea nitrogen/Creatinine [Mass ratio] 18.0 mg/mg Normal 8-21 [facility] Comment on above: Performed By: #### E JOHN #### [facility] [address] [address] ED NOTEon 01-22-2023 ED NOTE HNO ID: [id number] Author: Batsheva Manley RN Service: ? Author Type: Registered Nurse Type: ED Notes Filed: 01/21/2023 11:10 PM Note Text: Discussed discharge instructions and follow up care with the patient. Patient verbalized understanding, provided bus pass, and pt left in stable condition [facility] ED NOTE HNO ID: [id number] Author: Helga Serrano RN Service: ? Author Type: Registered Nurse Type: ED Notes Filed: 01/21/2023 10:21 PM Note Text: Dr Fisher to bedside. [facility] ED NOTE HNO ID: [id number] Author: Batsheva Manley RN Service: ? Author Type: Registered Nurse Type: ED Notes Filed: 01/21/2023 10:13 PM Note Text: Pt up to triage window stating that he just needs a dose of his medication and a prescription refill. Pt states he doesn't need blood work, he knows what is going on and just needs a medicine [facility] ED PROV NOTEon 01-22-2023 ED PROV NOTE HNO ID: [id number] Author: Elgin Fisher MD Service: Emergency Medicine [...] to sleep. He states he is visiting [place] from [place] currently. He states he ran [...] Allergen Reactions Caffeine Rash Other reaction(s): Shakiness [place] GI Upset, Rash, Vomiting Statused by Person: Imelda Meza.(T Carter2) on Statused by Person: SRAVANTHI MONGE([facility]) on Statused by Person: Imelda Meza.(T Carter2) on Statused by Person: SRAVANTHI MNOGE(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 Counseled patient re (more content not included)... Normal [facility] EKGon 01-22-2023 Electrocardiogram EKG Ventricular Rate : 76 BPM Atrial Rate : 76 BPM P-R Interval : 166 ms QRS Duration : 100 ms Q-T Interval : 354 ms QTC Calculation(Bazett) : 398 ms Calculated P Wren : 25 degrees Calculated R Wren : -23 degrees Calculated T Wren : 2 degrees Diagnosis:Normal sinus rhythm early repolarization in I AVL seen Aug 22 2021 Poor R wave progression V1-V6 Confirmed by MISHA ESCALANTE ([id number]) on 01/23/2023 9:27:21 PM Normal [facility] HS TROPONIN Ton 01-22-2023 HS TROPONIN T DELTA Normal 0-4 [facility] Comment on above: Result Comment: No p revious result Performed at [address] [address] Performed By: #### E JOHN #### [place] [id number] HS TROPONIN T,GEN 5 6 NG/L Normal <15 [facility] Comment on above: Result Comment: LESS [...] administration. Performed By: #### E JOHN #### [place] [id number] Laboratory - Chemistry and C hemistry - challengeon 01-22-2023 Albumin [Mass/Vol] Albumin 4.3 GM/DL (3.5-5.0 GM/DL) 3.5 - 5.0 GM/DL [facility] Albumin/Globulin [Mass ratio] Albumin Globulin Ratio 1.6 RATIO (1.5-3.0 RATIO) 1.5 - 3.0 RATIO [facility] ALP (Bld) [Catalytic activity/Vol] Alk Phosphatase 66 U/L (35-125 U/L) 35 - 125 U/L [facility] ALT [Catalytic activity/Vol] ALT 33 U/L (5-40 U/L) 5 - 40 U/L [facility] Anion gap [Moles/Vol] Anion Gap 12 MMOL/ L (0-19 MMOL/L) 0 - 19 MMOL/L [facility] AST [Catalytic activity/Vol] AST 22 U/L (5-40 U/L) 5 - 40 U/L [facility] Bilirubin [Mass/Vol] Total Bilirubin 0.2 MG/DL (0.1-1.2 MG/DL) 0.1 - 1.2 MG/DL [facility] Calcium [Mass/Vol] Calcium 9.1 MG/DL (8.5-10.4 MG/DL) 8.5 - 10.4 MG/DL [facility] Chloride [Moles/Vol] Chloride 101 MMOL/L (97-107 MMOL/L) 97 - 107 MMOL/L [facility] CO2 [Moles/Vol] Carbon Dioxide 25 MM OL/L (24-31 MMOL/L) 24 - 31 MMOL/L [facility] Creatinine [Mass/Vol] Creatinine R 1.0 M G/DL (0.4-1.6 MG/DL) 0.4 - 1.6 MG/DL [facility] GFR/1.73 sq M.predicted MDRD (S/P/Bld) [Vol rate/Area] EGFR 91 mL/min/1.73 m2 (Reference Range: not available) CALCULATIONS OF ESTIMATED GFR ARE PERFORMED USING THE 2020 CKD-EPI STUDY REFIT EQUATION WITHOUT THE RACE VARIABLE FOR THE IDMS-TRACEABLE CREATININE METHODS. https://jasn.asnjournals .org/content/06/14/ASN.3107511519 Performed at [address] [address] [facility] Globulin (S) [Mass/Vol] Globulin 2.7 G/DL (1.9-3.7 G/DL) 1.9 - 3.7 G/DL [facility] Glucose [Mass/Vol] Glucose 122 MG/DL H (65-99 MG/DL) High 65 - 99 MG/DL [facility] Potassium [Moles/Vol] Potassium R 4.1 MM OL/L (3.4-5.1 MMOL/L) 3.4 - 5.1 MMOL/L [facility] Protein [Mass/Vol] Total Protein 7.0 G/ DL (5.9-7.9 G/DL) 5.9 - 7.9 G/DL [facility] Sodium [Moles/Vol] Sodium 138 MMOL/L (133-145 MMOL/L) 133 - 145 MMOL/L [facility] Troponin T.cardiac [Mass/Vol] HS Troponin T,Gen 5 [...] 8 hours following last biotin administration. [facility] Urea nitrogen [Mass/Vol] BUN 18 MG/DL (8-25 MG/DL) 8 - 25 MG/DL [facility] Urea nitrogen/Creatinine [Mass ratio] BUN Creatinine Ratio 18.0 RATIO (8-21 RATIO) 8 - 21 RATIO [facility] - Hematology and Cell countson 01-22-2023 Basophils (Bld) [#/Vol] Abs Baso 0.02 K/UL (0.00-0.22 K/UL) 0.00 - 0.22 K/UL [facility] Basophils/100 WBC (Bld) Basophil 0.50 % (0-1 %) 0 - 1 % [facility] Differential cell count method Nom (Bld) Diff Type AUTO DIFF (Reference Range: not available) [facility] Eosinophils (Bld) [#/Vol] Abs Eos 0.07 K/UL (0-0.45 K/UL) 0 - 0.45 K/UL [facility] Eosinophils/100 WBC (Bld) Eosinophil 1.80 % (0-3 %) 0 - 3 % [facility] Erythrocyte distribution width (RBC) [Entitic vol] RDW SD 38.7 FL (37.0-54.0 FL) 37.0 - 54.0 FL [facility] Erythrocyte distribution width (RBC) [Ratio] RDW CV 12.6 % (11.7-15.0 %) 11.7 - 15.0 % [facility] Hematocrit (Bld) [Volume fraction] HCT 38.6 % L (41-50 %) Low 41 - 50 % [facility] Hemoglobin (Bld) [Mass/Vol] HGB 13.1 GM/DL L (13.5-16.5 GM/DL) Low 13.5 - 16.5 GM/DL [facility] Immature granulocytes (Bld) [#/Vol] Abs Imm Neut 0.00 K/UL (0.0-0.1 K/UL) 0.0 - 0.1 K/UL [facility] Lymphocytes (Bld) [#/Vol] Abs Lymph 1.08 K/UL L (1.2-3.2 K/UL) Low 1.2 - 3.2 K/UL [facility] Lymphocytes/100 WBC (Bld) Lymphocyte 28.50 % (20-40 %) 20 - 40 % [facility] MCH (RBC) [Entitic mass] MCH 29.2 PG (26-34 PG) 26 - 34 PG [facility] MCHC (RBC) [Mass/Vol] MCHC 33.9 % (31-37 %) 31 - 37 % [facility] MCV (RBC) [Entitic vol] MCV 86.0 FL (80-100 FL) 80 - 100 FL [facility] Monocytes (Bld) [#/Vol] Abs Brown 0.32 K/UL (0-0.8 K/UL) 0 - 0.8 K/UL [facility] Monocytes/100 WBC (Bld) Monocyte 8.40 % H (0-8 %) High 0 - 8 % [facility] Neutrophils (Bld) [#/Vol] Abs.Neut.Calculated 2.30 K/UL (Reference Range: not available) Performed at [address] [address] [facility] Neutrophils (Bld) [#/Vol] Abs Neut 2.30 K/UL (1.8-7.7 K/UL) 1.8 - 7.7 K/UL [facility] Neutrophils.immature/ 100 WBC (Bld) Immature Neut % 0.00 % (0.0-1.0 %) 0.0 - 1.0 % [facility] Nucleated RBC/100 WBC (Bld) [Ratio] NRBCs 0 /100 WBC (0 /100 WBC) [facility] Platelet mean volume (Bld) [Entitic vol] MPV 11.3 CU (7.0-12.6 CU) 7.0 - 12.6 CU [facility] Platelets (Bld) [#/Vol] PLT 156 K/UL (150-450 K/UL) 150 - 450 K/UL [facility] RBC (Bld) [#/Vol] RBC 4.49 M/UL L (4.5 -5.5 M/UL) Low 4.5 - 5.5 M/UL [facility] Segmented neutrophils/100 WBC (Bld) Granulocyte 60.80 % (50-70 %) 50 - 70 % [facility] WBC (Bld) [#/Vol] WBC 3.8 K/UL L (4.5- 11.0 K/UL) Low 4.5 - 11.0 K/UL [facility] No Panel Informationon 01-22 XR Chest 2 Views (PA and lat) (Reference Range: not available) *FINAL Date of Service: 01/22/2023 20:03 Adm #: [id number] Reading Dr:BRYAN BOLANOS Signoff Dr: BRYAN BOLANOS PROCEDURE: CHEST 2 VIEW - WXR 0020 REASON FOR EXAM: cp RESULT: Patient Name: HOSEA ALVAREZ STUDY: CHEST 2 VIEW 01/22/2023 8:03 pm INDICATION: Chest pain after drinking caffeine COMPARISON: 09/05/2021 ACCESSION NUMBER(S): [id number] ORDERING CLINICIAN: ELVIRA MCNALLY TECHNIQUE: PA and lateral views of the chest were acquired. FINDINGS: The cardiac size is at the upper range of normal with tortuosity of the descending thoracic aorta. The lungs are clear without pleural abnormality. IMPRESSION: No acute cardiopulmonary disease. Dictation workstation: [id number] Original Interpreting Physician: BRYAN BOLANOS M.D. Original Transcribed by/Date: MMODAL Jan 22 2023 7:26P Original Electronically Signed by/Date: BRYAN BOLANOS M.D. Jan 22 2023 8:36P Addendum Interpreting Physician: Addendum Transcribed by/Date: NO ADDENDUM Addendum Electronically Signed by/Date: [facility] HS Troponin T Delta No previous result Performed at [address] [address] (0-4 ) 0 - 4 [facility] ED NOTEon 01-21-2023 ED NOTE HNO ID: [id number] Author: Ira Vuong RN Service: ? Author Type: Registered Nurse Type: ED Notes Filed: 01/21/2023 7:16 PM Note Text: Pt to ed for heart palpations. Pt states out of metoprolol. [facility] EKGon 01-21-2023 Electrocardiogram Ventricular Rate : 9 2 BPM Atrial Rate : 92 BPM P-R Interval : 154 ms QRS Duration : 94 ms Q-T Interval : 338 ms QTC Calculation(Bazett) : 417 ms Calculated P Wren : 32 degrees Calculated R Wren : -30 degrees Calculated T Wren : 23 degrees NORMAL SINUS RHYTHM POSSIBLE LEFT ATRIAL ENLARGEMENT LEFT AXIS DEVIATION ABNORMAL ECG WHEN COMPARED WITH ECG OF 19-JAN-2023 01:22, NO SIGNIFICANT CHANGE WAS FOUND Confirmed by ELGIN FISHER MD ([id number]), publication editor YASMIN GAUTHIER ([id number]) on 01/24/2023 8:16:52 AM NAME : HOSEA ALVAREZ PID : [id number] : 1970 Gender : Male Race : ORD : Procedure Date : Jan 21 2023 18:42:25 Edit Date : Jan 24 2023 08:16:55 Diagnosis: NORMAL SINUS RHYTHM POSSIBLE LEFT ATRIAL ENLARGEMENT LEFT AXIS DEVIATION ABNORMAL ECG WHEN COMPARED WITH ECG OF 19-JAN-2023 01:22, NO SIGNIFICANT CHANGE WAS FOUND Confirmed by ELGIN FISHER MD ([id number]), publication editor YASMIN GAUTHIER ([id number]) on 01/24/2023 8:16:52 AM Test Reason : Location : : [facility] Overread By : ELGIN FISHER MD Edited By : YASMIN GAUTHIER Referred By : , Acquired by : PAULINO JETT Normal [facility] ECG COMPLETEon 01-19-2023 ECG COMPLETE Ventricular Rate : 7 4 BPM Atrial Rate : 74 BPM P-R Interval : 170 ms QRS Duration : 104 ms Q-T Interval : 378 ms QTC Calculation(Bazett) : 419 ms Calculated P Wren : 19 degrees Calculated R Wren : -10 degrees Calculated T Wren : 9 degrees NORMAL SINUS RHYTHM ST ELEVATION, CONSIDER EARLY REPOLARIZATION, PERICARDITIS, OR INJURY ABNORMAL ECG WHEN COMPARED WITH ECG OF 08-SEP-2021 13:41, NO SIGNIFICANT CHANGE WAS FOUND confirmed 0123 Confirmed by MD SANCHEZ MICHELLE ([id number]), publication editor CATHI PERALTA ([id number]) on 01/19/2023 10:59:58 AM NAME : HOSEA ALVAREZ PID : [id number] : 1970 Gender : Male Race : ORD : [id number] Procedure Date : Jan 19 2023 01:22:13 Edit Date : Jan 19 2023 11:00:00 Diagnosis: NORMAL SINUS RHYTHM ST ELEVATION, CONSIDER EARLY REPOLARIZATION, PERICARDITIS, OR INJURY ABNORMAL ECG WHEN COMPARED WITH ECG OF 08-SEP-2021 13:41, NO SIGNIFICANT CHANGE WAS FOUND confirmed 0123 Confirmed by MD SANCHEZ MICHELLE ([id number]), publication editor CATHI PERALTA ([id number]) on 01/19/2023 10:59:58 AM Test Reason : Chest Pain Location : 80 : [facility] Overread By : MD SANCHEZ MICHELLE Edited By : CATHI PERALTA Referred By : , Acquired by : NAJMA DONOVAN [facility] ED NOTEon 01-19-2023 ED NOTE HNO ID: [id number] Author: Bhumika Franco RN Service: ? Author Type: Registered Nurse Type: ED Notes Filed: 01/19/2023 6:42 AM Note Text: Discharge instructions and follow up care were reviewed, pt verbalized understanding. Pt left ED with steady gait by himself. [facility] ED NOTE HNO ID: [id number] Author: Bhumika Franco RN Service: ? Author Type: Registered Nurse Type: ED Notes Filed: 01/19/2023 5:56 AM Note Text: Pt observed out of the bed with pants down by the sink. Pt stated I had to pee so used urinal and throw it into the sink. Reminded to use call light for assistance. [facility] ED NOTE HNO ID: [id number] Author: Bhumika Franco RN Service: ? Author Type: Registered Nurse Type: ED Notes Filed: 01/19/2023 4:30 AM Note Text: Pt was observed getting out of the bed. Pt Took his long sleeve t-shirt and put it on top of IV and BP cuff. Pt was reminded to use the call light for assistance [facility] ED NOTE HNO ID: [id number] Author: Bhumika Franco RN Service: ? Author [...] sample. Pt denies the need of urinating. [facility] ED PROV NOTEon 01-19-2023 ED PROV NOTE HNO ID: [id number] Author: Lily Dacosta PA-C Service: Emergency Medicine Author Type: Physician Financial Systems Director Type: ED Provider Notes Filed: 01/19/2023 6:09 AM Note Text: ED Provider Note Patient Name: Hosea Alvarez : 1970 SERVICE DATE: 01/19/23 History Patient presents with: Back Pain Patient 52-year-old male brought in by EMS for alcohol abuse/intoxication patient has multiple complaints patient is vomiting in the sink at time of initial consultation History provided by: Patient environmental planner used: No Chest Pain Pain location: Substernal [...] Allergen Reactions Caffeine Rash Other reaction(s): Shakiness [place] GI Upset, Rash, Vomiting Statused by Person: Derrick Imelda.(Altaf Carter2) on Statused by Person: SRAVANTHI NG([facility]) on Statused by Person: DerrickImelda lino.(Altaf Carter2) on Statused by Person: SRAVANTHI MONGE(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 (more content not included)... Normal [facility] HIGH SENSITIVITY TROPONIN T (SECOND)on 01-19-2023 HIGH SENSITIVITY SITA 6 ng/L Normal <12 [facility] Comment on above: Order Comment: Specrosa [facility] Type: BLOOD SPECIMENOrdering Facility: [facility] Address: [address] [address] Result Comment: When assessing risk for acute [...] 30 day MACE. Performed By: #### L [id number] ####[facility] LABORATORYCLIA [id number] [address] [place] Urinalysis complete panel (U )on 01-19-2023 Bacteria LM.HPF (Urine sed) [#/Area] None Seen Normal None Seen [facility] Comment on above: Order Comment: Ariella [facility] Type: URINE SPECIMENOrdering Facility: [facility] Address: [address] [place] [address] Performed By: #### 2 4356-8 ####[facility]CL[facility] LABORATORYCLIA [id number] [place] [address] [place] Bilirubin Ql (U) Negative Normal Negative [facility] Comment on above: Order Comment: Speci men Type: URINE SPECIMENOrdering Facility: [facility] Address: [address] [address] Performed By: #### 2 4356-8 ####EUCL[facility] LABORATORYCLIA [id number] [place] [address] [place] Clarity (Unsp spec) Clear Normal [facility] Comment on above: Order Comment: Speci men Type: URINE SPECIMENOrdering Facility: [facility] Address: [address] [place] [address] Performed By: #### 2 4356-8 ####[facility]CL[facility] LABORATORYCLIA [id number] [address] [place] Color (U) Yellow Normal Yellow [facility] Comment on above: Order Comment: Speci men Type: URINE SPECIMENOrdering Facility: [facility] Address: [address] [address] Performed By: #### 2 4356-8 ####[facility]CL[facility] LABORATORYCLIA [id number] [address] [place] Epithelial cells LM.HPF (Urine sed) [#/Area] None Seen Normal [facility] Comment on above: Order Comment: Speci men Type: URINE SPECIMENOrdering Facility: [facility] Address: [address] [address] Performed By: #### 2 4356-8 ####[facility]CL[facility] LABORATORYCLIA [id number] [address] [place] Glucose Test strip (U) [Mass/Vol] Negative Normal Negative [facility] Comment on above: Order Comment: Speci men Type: URINE SPECIMENOrdering Facility: [facility] Address: [address] [address] Performed By: #### 2 4356-8 ####[facility]CL[facility] LABORATORYCLIA [id number] [place] [address] [place] Hemoglobin Ql (U) Negative Normal Negative, Trace [facility] Comment on above: Order Comment: Speci men Type: URINE SPECIMENOrdering Facility: [facility] Address: [address] [address] Performed By: #### 2 4356-8 ####[facility]CL[facility] LABORATORYCLIA [id number] [place] [address] [place] Ketones Ql (U) Negative Normal Negative [facility] Comment on above: Order Comment: Speci men Type: URINE SPECIMENOrdering Facility: [facility] Address: [address] [address] Performed By: #### 2 4356-8 ####[facility]CL[facility] LABORATORYCLIA [id number] [address] [place] Leukocyte esterase Test strip Ql (U) Negative Normal Negative [facility] Comment on above: Order Comment: Speci men Type: URINE SPECIMENOrdering Facility: [facility] Address: [address] [place] [address] Performed By: #### 2 4356-8 ####EUCL[facility] LABORATORYCLIA [id number] [place] [address] [place] Nitrite Ql (U) Negative Normal Negative [facility] Comment on above: Order Comment: Speci men Type: URINE SPECIMENOrdering Facility: [facility] Address: [address] [place] [address] Performed By: #### 2 4356-8 ####EUCL[facility] LABORATORYCLIA [id number] [place] [address] [place] pH (U) 6.0 [pH] Normal 5.0-8.0 [facility] Comment on above: Order Comment: Speci men Type: URINE SPECIMENOrdering Facility: [facility] Address: [address] [address] Performed By: #### 2 4356-8 ####EUCL[facility] LABORATORYCLIA [id number] [address] [place] Protein (U) [Mass/Vol] Negative Normal Negative [facility] Comment on above: Order Comment: Speci men Type: URINE SPECIMENOrdering Facility: [facility] Address: [address] [place] [address] Performed By: #### 2 4356-8 ####EUCL[facility] LABORATORYCLIA [id number] [place] [address] [place] RBC LM.HPF (Urine sed) [#/Area] 0-3 /HPF Normal 0-3 /HPF [facility] Comment on above: Order Comment: Speci men Type: URINE SPECIMENOrdering Facility: [facility] Address: [address] [place] [address] Performed By: #### 2 4356-8 ####EUCL[facility] LABORATORYCLIA [id number] [address] [place] Specific gravity (U) [Rel density] <=1.005 Low 1.005-1.030 [facility] Comment on above: Order Comment: Speci men Type: URINE SPECIMENOrdering Facility: [facility] Address: [address] [place] [address] Performed By: #### 2 4356-8 ####EUCL[facility] LABORATORYCLIA [id number] [address] [place] Urobilinogen Ql (U) 0.2 EU/dL Normal 0.2-1.0 EU/dL [facility] Comment on above: Order Comment: Speci men Type: URINE SPECIMENOrdering Facility: [facility] Address: [address] [place] [address] Performed By: #### 2 4356-8 ####[facility]CL[facility] LABORATORYCLIA [id number] [address] [place] WBC LM.HPF (Urine sed) [#/Area] 0-5 /HPF Normal 0-5 /HPF [facility] Comment on above: Order Comment: Speci men Type: URINE SPECIMENOrdering Facility: [facility] Address: [address] [place], [place] [address] Performed By: #### 2 4356-8 ####PHILLIP LABORATORYCLIA [id number] [place] [address] [place] APTTon 01-14-2023 aPTT Coag (Bld) [Time] 32.8 s Normal 26.0-39.0 [facility] Comment on above: Performed By: #### C D:[id number], 201185, 561065, 953793, 586900, 2512386, 674192, 883376 ####[facility] [address] [place] [address] Medical Director: Roberto Anand MD AUTO DIFFon 01-14-2023 Baso Count 0.01 x1000 Normal 0.00-0.20 [facility] Comment on above: Performed By: #### C D:[id number], 257464, 589015, 437816, 775798, 7069546, 070698, 065385 ####[facility] [address] [place] [address] Medical Director: Roberto Anand MD Basos % 0.3 % Normal [facility] Comment on above: Performed By: #### C D:[id number], 847671, 050178, 656258, 453084, 2415157, 768294, 234413 ####[facility] [address] [place] [address] Medical Director: Roberto Anand MD Eos Count 0.08 x1000 Normal 0.00-0.50 [facility] Comment on above: Performed By: #### C D:[id number], 562659, 885952, 030373, 370354, 7905349, 347003, 292856 ####[facility] [address] [place], [place] [address]) [phone] Director: Roberto Anand MD Eosinophils/100 WBC (Bld) 2.4 % Normal [facility] Comment on above: Performed By: #### C D:[id number], 854277, 862238, 739871, 898467, 8056978, 649668, 393169 ####[facility] [address] [place] [address] Medical Director: Roberto Anand MD Lymph Count 0.94 x1000 Low 1.20-4.80 [facility] Comment on above: Performed By: #### C D:[id number], 142957, 417875, 552167, 027349, 1006892, 406840, 938670 ####[facility] [address] [place] [address] Medical Director: Roberto Anand MD Lymphocytes/100 WBC (Bld) 29.8 % Normal [facility] Comment on above: Performed By: #### C D:[id number], 651574, 046969, 746023, 501054, 3536951, 739561, 280098 ####[facility] [address] [place] [address] Medical Director: Roberto Anand MD Brown Count 0.31 x1000 Normal 0.10-1.00 [facility] Comment on above: Performed By: #### C D:[id number], 411687, 336054, 936332, 309943, 6555973, 179592, 210052 ####[facility] [address] [place] [address] Medical Director: Roberto Anand MD Monocytes/100 WBC (Bld) 9.9 % Normal [facility] Comment on above: Performed By: #### C D:[id number], 034264, 614727, 912880, 617167, 2003917, 965757, 701099 ####[facility] [address] [place] [address] Medical Director: Roberto Anand MD Neutrophil Count (ANC) 1.81 x1000 Normal 1.40-8.80 [facility] Comment on above: Performed By: #### C D:[id number], 422033, 717096, 749532, 524573, 8995785, 892772, 280070 ####[facility] [address] [place] [address] Medical Director: Roberto Anand MD Neutrophils/100 WBC (Bld) 57.6 % Normal [facility] Comment on above: Performed By: #### C D:855110516, 687109, 591067, 202487, 155745, 4229265, 673638, 550805 ####[facility] [address] [place], [place] [address]) [phone] Director: Roberto Anand MD COMPMETAon 01-14-2023 Albumin [Mass/Vol] 3.9 g/dL Normal 3.4-5.0 [facility] Comment on above: Performed By: #### C D:[id number], 962321, 086520, 629488, 644833, 2715785, 510739, 797745 ####[facility] [address] [place], [place] [address]) [phone] Director: Roberto Anand MD Albumin/Globulin [Mass ratio] 1.2 {ratio} Normal [facility] Comment on above: Performed By: #### C D:291341758, 170654, 095651, 185853, 735593, 3869582, 756701, 058313 ####[facility] [address] [place] [address] Medical Director: Roberto Anand MD Alk Phos 62 unit/L Normal 46-116 [facility] Comment on above: Performed By: #### C D:388382342, 741736, 526029, 384548, 137291, 2307496, 132350, 456892 ####[facility] [address] [place] [address] Medical Director: Roberto Anand MD Bilirubin [Mass/Vol] 0.60 mg/dL Normal 0.20-1.00 [facility] Comment on above: Result Comment: Use of this assay is not recommended for patients undergoing treatment with eltrombopag due to the potential for falsely elevated results. Performed By: #### C D:[id number], 027235, 432764, 984199, 029112, 8159763, 897939, 126720 ####[facility] [address] [place] [address] Medical Director: Roberto Anand MD Calcium [Mass/Vol] 9.5 mg/dL Normal 8.7-10.4 [facility] [facility] Comment on above: Performed By: #### C D:[id number], 002517, 542607, 994707, 047048, 9421695, 055248, 733901 ####[facility] [address] [place] [address] Medical Director: Roberto Anand MD Chloride [Moles/Vol] 106 mmol/L Normal 98-107 [facility] Comment on above: Performed By: #### C D:[id number], 041200, 197054, 208129, 017291, 4817293, 320691, 702678 ####[facility] [address]djoxkb[address]12 [place] [address] Medical Director: Roberto Anand MD CO2 [Moles/Vol] 26.0 mmol/L Normal 20.0-31.0 [facility] Comment on above: Performed By: #### C D:[id number], 517362, 235085, 751534, 224042, 6324986, 439998, 905882 ####[facility] [address]wh[address] [place] [address] Medical Director: Roberto Anand MD Creatinine [Mass/Vol] 0.9 mg/dL Normal 0.6-1.1 [facility] Comment on above: Performed By: #### C D:[id number], 488440, 259933, 283719, 679420, 5838571, 141998, 724472 ####[facility] [address]unsrh[address] [place] [address] Medical Director: Roberto Anand MD GFR AA >60 Normal [facility] Comment on above: Result Comment: Afri can Vincentian GFR Calc Medical judgement is necessary to [...] for drug dosing. Performed By: #### C D:[id number], 642429, 837176, 408782, 343513, 7728961, 236200, 117757 ####[facility] [address] [place] [address] Medical Director: Roberto Anand MD Globulin (S) [Mass/Vol] 3.3 g/dL Normal [facility] Comment on above: Performed By: #### C D:[id number], 960457, 752114, 109637, 565266, 1743601, 301111, 014773 ####[facility] [address] [place] [address] Medical Director: Roberto Anand MD Glomerular Filtration Rate >60 Normal [facility] Comment on above: Result Comment: Non- [...] for drug dosing. Performed By: #### C D:[id number], 423042, 088131, 663414, 218490, 6142685, 071634, 402769 ####[facility] [address]fs[address] [place] [address] Medical Director: Roberto Anand MD Glucose [Mass/Vol] 98 mg/dL Normal 74-106 [facility] Comment on above: Performed By: #### C D:129022523, 014086, 727498, 982426, 948086, 7416590, 612159, 258327 ####[facility] [address] [place] [address] Medical Director: Roberto Anand MD GOT 18 unit/L Normal 15-37 [facility] Comment on above: Performed By: #### C D:300009162, 711520, 680776, 453056, 687410, 0478567, 381465, 943911 ####[facility] [address]zjsztx[address]551 [place] [address] Medical Director: Roberto Anand MD GPT 23 unit/L Normal 10-49 [facility] Comment on above: Performed By: #### C D:[id number], 004375, 999109, 354527, 497731, 1503406, 282484, 640460 ####[facility] [address]mbeko[address] [place] [address] Medical Director: Roberto Anand MD Osmolality [Osmolality] 276 mosm/kg Normal 275-295 [facility] Comment on above: Performed By: #### C D:[id number], 121942, 425770, 333301, 056505, 4628929, 798200, 650054 ####[facility] [address]vszails18477 [place] [address] Medical Director: Roberto Anand MD Potassium [Moles/Vol] 3.9 mmol/L Normal 3.5-5.1 [facility] Comment on above: Result Comment: Spec imen slightly hemolyzed. Results may be affected. Performed By: #### C D:[id number], 644716, 424853, 021561, 393975, 0493302, 637307, 259627 ####[facility] [address]gb[address] [place] [address] Medical Director: Roberto Anand MD Protein [Mass/Vol] 7.2 g/dL Normal 5.7-8.2 [facility] Comment on above: Result Comment: Tota l Protein results may be increased in patients receiving dextran as a blood volume livestock dealer Performed By: #### C D:390978754, 016319, 275881, 150194, 418717, 6289356, 178359, 471695 ####[facility] [address] [place] [address] Medical Director: Roberto Anand MD Sodium [Moles/Vol] 137 mmol/L Normal 135-145 [facility] Comment on above: Performed By: #### C D:181108244, 743039, 151877, 681304, 561961, 7096817, 927533, 469334 ####[facility] [address]skt[address] [place] [address] Medical Director: Roberto Anand MD Urea nitrogen [Mass/Vol] 19 mg/dL Normal 9-23 [facility] Comment on above: Result Comment: - Ve nipuncture should occur prior to N-Acetyl Cysteine (NAC) or Metamizole (Sulpyrine) administration due to the potential for falsely depressed results. - Blood samples from some patients with monoclonal gammopathies may produce falsely elevated results Performed By: #### C D:[id number], 155404, 724601, 769180, 752790, 5727117, 694895, 972816 ####[facility] [address]kssyqp[address]54 [place] [address] Medical Director: Roberto Anand MD Urea nitrogen/Creatinine [Mass ratio] 21.1 mg/mg Normal [facility] Comment on above: Performed By: #### C D:208351730, 433757, 406761, 234293, 349638, 8999726, 312217, 045046 ####[facility] [address] [place] [address] Medical Director: Roberto Anand MD ED Adult [...] Unknown Status : N/A Preferred Verbal : Scottish Birgit Lee RN 01/14/2023 5:33 EDT Depression [...] List Problem List obtained from : Patient Bigrit Lee RN - 01/14/2023 5:33 EDT (As Of: 01/14/2023 05:34:14 EDT) Problems(Active) Aneurysm (SNOMED CT :1457613478 ) Name of Problem: Aneurysm ; Recorder: Ellie Lyles RN; Confirmation: Confirmed ; Classification: Medical ; Code: 4842533161 ; Contributor System: Lightwire ; Last Updated: 04/27/2021 20:57 EDT ; Life Cycle Date: 04/27/2021 ; Life Cycle Status: Active ; Vocabulary: SNOMED CT Anxiety (SNOMED CT :33999775 ) Name of Problem: Anxiety ; Recorder: Elvira Monroe MA; Confirmation: Confirmed ; Classification: Medical ; Code: 64292669 ; Contributor System: Electrolytic OzoneChart ; Last Updated: 03/10/2021 15:03 EDT ; Life Cycle Date: 03/10/2021 ; Life Cycle Status: Active ; Vocabulary: SNOMED CT GERD (gastroesophageal reflux disease) (SNOMED CT :950002407 ) Name of Problem: GERD (gastroesophageal reflux disease) ; Recorder: Elvira Monroe MA; Confirmation: Confirmed ; Classification: Medical ; Code: 764214976 ; Contributor System: Electrolytic OzoneChart ; Last Updated: 03/10/2021 15:04 EDT ; Life Cycle Date: 03/10/2021 ; Life Cycle Status: Active ; Vocabulary: SNOMED CT Hypertension (SNOMED CT :7521342143 ) Name of Problem: Hypertension ; Recorder: Elvira Monroe MA; Confirmation: Confirmed ; Classification: Medical ; Code: 0032795759 ; Contributor System: Electrolytic OzoneChart ; Last Updated: 03/10/2021 15:04 EDT ; Life Cycle Date: 03/10/2021 ; Life Cycle Status: Active ; Vocabulary: SNOMED CT Irregular heart rhythm (SNOMED CT :443959326 ) Name of Problem: Irregular heart rhythm ; Recorder: Elvira Monroe MA; Confirmation: Confirmed ; Classification: Medical ; Code: 676261194 ; Contributor System: PowerChart ; Last Updated: 03/10/2021 15:04 EDT ; Life Cycle Date: 03/10/2021 ; Life Cycle Status: Active ; Vocabulary: SNOMED CT Renal stone (SNOMED CT :408858292 ) Name of Problem: Renal stone ; Recorder: Ellie Lyles RN; Confirmation: Confirmed ; Classification: Medical ; Code: 825527492 ; Contributor System: Electrolytic OzoneChart ; Last Updated: 04/27/2021 20:57 EDT ; Life Cycle Date: 04/27/2021 ; Life Cycle Status: Active ; Vocabulary: SNOMED CT Sleep apnea (SNOMED CT :903476909 ) Name of Problem: Sleep apnea ; Recorder: Elvira Monroe MA; Confirmation: Confirmed ; Classification: Medical ; Code: 899125741 ; Contributor System: PowerChart ; Last Updated: 03/10/2021 15:04 EDT ; Life Cycle Date: 03/10/2021 ; Life Cycle Status: Active ; Vocabulary: SNOMED CT Diagnoses(Active) Palpitations Date: 01/14/2023 ; Diagnosis Type: Reason For Visit ; Confirmation: Confirmed ; Clinical Dx: Palpitations ; Classification: Medical ; Clinical Service: Non-Specified ; Code: PNED ; Probability: 0 ; Diagnosis Code: [id number] Procedure History ED Devices Present on Arrival [...] COVID-19 ind (more content not included)... Normal [facility] ED Discharge Educationon ED Discharge Education [...] caffeine, or nicotine. Some prescription medicines and dweh-vvs-amzdply medicines can also cause heart palpitations. Nearly [...] Ask your doctor whether you can take vzdj-nia-buiyega medicines (such as decongestants). These may cause [...] irregular heartbeat. After you call 911, the magnesium mill operator may tell you to chew 1 [...] Where can you learn more? Go to https://www.[employer].n et/patientEd Enter R508 in the search box to learn more about Palpitations: Care Instructions. Current as of: October 02, 2021 Content Version: 13.3 ? [employer]. Care instructions adapted under license by your healthcare professional. If you have questions about a medical condition or this instruction, always ask your healthcare professional. [employer] disclaims any warranty or liability for your use of this information. Normal [facility] ED Emergency Severity Index Adult-Texton 01-14-2023 [...] Lee RN - 01/14/2023 5:22 EDT Normal [facility] ED Nrsing Adlt Triage Sep Sc rning - Texton 01-14-2023 ED Nrsing Adlt Triage Sep Scrning - Text ED Nursing Adult Triage Sepsis Screening Tool Entered On: 01/14/2023 5:33 EDT Performed On: 01/14/2023 5:33 EDT by Birgit Lee RN Adult Sepsis Screening Sepsis Infection Screening ED : No Birgit Lee RN - 01/14/2023 5:33 EDT Normal [facility] ED Patient Summaryon 023 ED Patient Summary [facility] Emergency Department Discharge Instructions [address] [place] [address] (Patient Copy) Name: HOSEA ALVAREZ : 1970 Allergies: MiraLax Diagnosis: Heart palpitations Visit Date: 01/14/2023 05:22:11 Current Date Time: 01/14/2023 11:40:16 Address: [address] [place] [address] Phone: [phone] Primary Care Provider: Name: VIRAL AMADO Phone: [phone] Emergency Department Care Providers: Primary Physician: NADIRA HAZEL MD Thank you for choosing [facility] for your emergency care. You are very important to us. Our goal is to demonstrate our high quality medical care, and provide you with a very good patient experience. You may receive a survey about our service. Please take the time to complete the survey and return it so we can continue to enhance our service. Thank you again for allowing the [facility] Emergency Department to care for your medical needs. If you have questions about your care or follow up information please contact us at [phone]. Follow-Up Instructions HOSEA ALVAREZ has been given these follow-up instructions: With: Address: When: CHRISTY MANNING, Oncology/Hematology [address] [facility], [place] [address] [phone] Business (1) Within 3 to 5 days With: Address: When: RADHA GUADALUPE, Cardiology [address] [facility], [address] [place] [address] Business (1) Within 3 to 5 days With: Address: When: DR FAUSTINA HOYT ON STAFF [address] [facility], [address] [place] [address] [phone] Business (1) Within 3 to 5 days [...] caffeine, or nicotine. Some prescription medicines and dtex-cvw-punhghz medicines can also cause heart palpitations. Nearly [...] Ask your doctor whether you can take ovex-lyi-ttxyoxy medicines (such as decongestants). These may cause [...] the o (more content not included)... Normal [facility] ED Physician Reporton 2022 ED Physician [...] to fill the metoprolol because he has zws-oc-aksti Medicaid and states that he cannot fill prescriptions on his Medicaid in [place]. No chest pain. Patient's heart rate currently [...] history: No past history of procedure (CPT4 04811).. Family history: Pancreatic cancer Other Ovarian cancer.. [...] NORMAL Fr (more content not included)... Normal [facility] ED Pre-Arrival Formon 2022 ED Pre-Arrival Form Pre-Arrival Summary Name: GEREMIAS WHEN CLEAN, Current Date: 01/14/2023 05:22:34 EDT Gender: Date of : Age: Pre-Arrival Type: EMS ETA: 01/14/2023 05:45:00 EDT Primary Care Physician: Presenting Problem: Pre-Arrival User: Birgit Lee RN Referring Source: Location: 1 [facility] Emergency Department [address] [place] [address]. [place] [address] Notes: Vital Signs: Doctor Call Back: DNR Status: Miscellaneous Issues: Normal [facility] ED Progress Noteon ED Progress Note Pt [...] Pt. left ambulatory with steady gait. Normal [facility] ED Triage Adult-Texton 01-14 ED Triage Adult-Text ED Triage Entered O n: 01/14/2023 5:36 EDT Performed On: 01/14/2023 5:36 EDT by Grupo Jay RN Triage (As Of: 01/14/2023 05:36:55 EDT) Problems(Active) Aneurysm (SNOMED CT :4995995089 ) Name of Problem: Aneurysm ; Recorder: Ellie Lyles RN; Confirmation: Confirmed ; Classification: Medical ; Code: 2518281365 ; Contributor System: PowerChart ; Last Updated: 04/27/2021 20:57 EDT ; Life Cycle Date: 04/27/2021 ; Life Cycle Status: Active ; Vocabulary: SNOMED CT Anxiety (SNOMED CT :71502614 ) Name of Problem: Anxiety ; Recorder: Elvira Monroe MA; Confirmation: Confirmed ; Classification: Medical ; Code: 91068935 ; Contributor System: PowerChart ; Last Updated: 03/10/2021 15:03 EDT ; Life Cycle Date: 03/10/2021 ; Life Cycle Status: Active ; Vocabulary: SNOMED CT GERD (gastroesophageal reflux disease) (SNOMED CT :957473428 ) Name of Problem: GERD (gastroesophageal reflux disease) ; Recorder: Elvira Monroe MA; Confirmation: Confirmed ; Classification: Medical ; Code: 053113354 ; Contributor System: PowerChart ; Last Updated: 03/10/2021 15:04 EDT ; Life Cycle Date: 03/10/2021 ; Life Cycle Status: Active ; Vocabulary: SNOMED CT Hypertension (SNOMED CT :7332067648 ) Name of Problem: Hypertension ; Recorder: Elvira Monroe MA; Confirmation: Confirmed ; Classification: Medical ; Code: 2950475677 ; Contributor System: PowerChart ; Last Updated: 03/10/2021 15:04 EDT ; Life Cycle Date: 03/10/2021 ; Life Cycle Status: Active ; Vocabulary: SNOMED CT Irregular heart rhythm (SNOMED CT :541983659 ) Name of Problem: Irregular heart rhythm ; Recorder: Elvira Monroe MA; Confirmation: Confirmed ; Classification: Medical ; Code: 299466020 ; Contributor System: PowerChart ; Last Updated: 03/10/2021 15:04 EDT ; Life Cycle Date: 03/10/2021 ; Life Cycle Status: Active ; Vocabulary: SNOMED CT Renal stone (SNOMED CT :843802822 ) Name of Problem: Renal stone ; Recorder: Ellie Lyles RN;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 Comment on above: Performed By: #### C BCDF #### [facility] [address] [place] [address] Bilirubin [Mass/Vol] 0.4 mg/dL Normal 0.0 - 1.2 [facility] Comment on above: Performed By: #### C BCDF #### [facility] [address] [place] [address] Calcium [Mass/Vol] 9.2 mg/dL Normal 8.6 - 10.6 [facility] Comment on above: Performed By: #### C BCDF #### [facility] [address] [place] [address] Chloride [Moles/Vol] 102 mmol/L Normal 98 - 107 [facility] Comment on above: Performed By: #### C BCDF #### [facility] [address] [place] [address] Creatinine [Mass/Vol] 1.05 mg/dL Normal 0.50 - 1.30 [facility] Comment on above: Performed By: #### C BCDF #### [facility] [address] [place] [address] GFR- AM. >60 Normal >60 [facility] [place] Comment on above: Result Comment: CALC ULATIONS OF ESTIMATED GFR ARE PERFORMED USING THE MDRD STUDY EQUATION FOR THE IDMS-TRACEABLE CREATININE METHODS. CLIN CHEM 2007;53:766-72 Performed By: #### C BCDF #### [facility] [address] [place] [address] GFR-NON AM. >60 Normal >60 [facility] Comment on above: Performed By: #### C BCDF #### [facility] [address] [place] [address] Glucose [Mass/Vol] 107 mg/dL High 74 - 99 [facility] Comment on above: Performed By: #### C BCDF #### [facility] [address] [place] [address] HCO3 (Bld) [Moles/Vol] 28 mmol/L Normal 21 - 32 [facility] Comment on above: Performed By: #### C BCDF #### [facility] [address] [place] [address] Potassium [Moles/Vol] 4.5 mmol/L Normal 3.5 - 5.3 [facility] Comment on above: Performed By: #### C BCDF #### [facility] [address] [place] [address] Protein [Mass/Vol] 6.9 g/dL Normal 6.4 - 8.2 [facility] Comment on above: Performed By: #### C BCDF #### [facility] [address] [place] [address] Sodium [Moles/Vol] 137 mmol/L Normal 136 - 145 [facility] Comment on above: Performed By: #### C BCDF #### [facility] [address] [place] [address] Urea nitrogen [Mass/Vol] 17 mg/dL Normal 6 - 23 [facility] Comment on above: Performed By: #### C BCDF #### [facility] [address] [place] [address] Complete Blood Count + Diffe rentialon 09-05-2021 Basophils/100 WBC (Bld) 0.6 % 0.0 - 2.0 [facility] [address] [place] Work Phone: Erythrocyte distribution width (RBC) [Ratio] 12.9 % See Below [facility] [address] [place] Work Phone: Comment on above: [...] 32.6 g/dL See Below [facility] [address] [place] Work Phone: Comment on above: Reference Range: 32. 0 - 36.0 MCV (RBC) [Entitic vol] 88 fL 80 - 100 [facility] [address] [place] Work Phone: Monocytes/100 WBC (Bld) 10.5 % 2.0 - 10.0 [facility] [address] [place] Work Phone: Neutrophils/100 WBC (Bld) 58.5 % See Below [facility] [address] [place] Work Phone: Comment on above: Reference Range: 40. 0 - 80.0 Platelets (Bld) [#/Vol] 134 10*3/uL below low threshold 150 - 450 [facility] [address] [place] Work Phone: RBC (Bld) [#/Vol] 4.75 {x10E12/L} See Below [facility] [address] [place] Work Phone: Comment on above: Reference Range: 4.5 0 - 5.90 WBC (Bld) [#/Vol] 3.6 10*3/uL below low threshold 4.4 - 11.3 [facility] [address] [place] Work Phone: Complete Blood Count + Differential 0.02 {x10E9/L} See Below [facility] [address] [place] Work Phone: Comment on above: Reference Range: 0.0 0 - 0.10 Complete Blood Count + Differential 0.12 {x10E9/L} See Below [facility] [address] [place] Work Phone: Comment on above: Reference Range: 0.0 0 - 0.70 Complete Blood Count + Differential 0.38 {x10E9/L} See Below [facility] [address] [place] Work Phone: Comment on above: Reference Range: 0.1 0 - 1.00 Complete Blood Count + Differential 0.96 {x10E9/L} below low threshold See Below [facility] [address] [place] Work Phone: Comment on above: Reference Range: 1.2 0 - 4.80 Complete Blood Count + Differential 2.12 {x10E9/L} See Below [facility] [address] [place] Work Phone: Comment on above: Reference Range: 1.2 0 - 7.70 Complete Blood Count + Differential 3.3 % 0.0 - 6.0 -[address] Work Phone: Complete Blood Count + Differential 0.6 % 0.0 - 0.[address] Work Phone: Comment on above: Immature Granulocyte Count (IG) includes promyelocytes, myelocytes and metamyelocytes but does not include bands. Percent differential counts (%) should be interpreted in the context of the absolute cell counts (cells/L). Complete Blood Count + Differential 0.0 {/100_WBC} 0.0-0.[address] Work Phone: Laboratory - Chemistry and C hemistry - challengeon 09-05-2021 Albumin BCP dye [Mass/Vol] 4.2 g/dL 3.4 - 5.[address] Work Phone: ALP [Catalytic activity/Vol] 59 U/L 33 - 120 [facility] Work Phone: ALT With P-5'-P [Catalytic activity/Vol] 23 U/L 10 - [address] Work Phone: Comment on above: Patients treated wit h Sulfasalazine may generate falsely decreased results for ALT. Anion gap [Moles/Vol] 12 mmol/L 10 - 20 [facility]- [address] Work Phone: AST With P-5'-P [Catalytic activity/Vol] 18 U/L 9 - 39 [facility] Work Phone: Bilirubin [Mass/Vol] 0.4 mg/dL 0.0 - 1.2 [facility] -[address] Work Phone: Calcium [Mass/Vol] 9.2 mg/dL 8.6 - 10.6 [facility] -[place] [address] [place] Work Phone: Chloride [Moles/Vol] 102 mmol/L 98 - 107 [facility] [address] [place] Work Phone: CO2 [Moles/Vol] 28 mmol/L 21 - 32 [facility] [address] [place] Work Phone: Creatinine [Mass/Vol] 1.05 mg/dL See Below [facility] [address] [place] Work Phone: Comment on above: Reference Range: 0.5 0 - 1.30 Glucose [Mass/Vol] 107 mg/dL above high threshold 74 - 99 [facility] [address] [place] Work Phone: Potassium [Moles/Vol] 4.5 mmol/L 3.5 - 5.3 [facility] [address] [place] Work Phone: Protein [Mass/Vol] 6.9 g/dL 6.4 - 8.2 [facility] [address] [place] Work Phone: Sodium [Moles/Vol] 137 mmol/L 136 - 145 [facility] [address] [place] Work Phone: Urea nitrogen [Mass/Vol] 17 mg/dL 6 - 23 [facility] [address] [place] Work Phone: No Panel Informationon 09-05 >60 >60 [facility] [address] [place] Work Phone: Comment on above: CALCULATIONS OF NIKOLE MATED GFR ARE PERFORMED USING THE MDRD STUDY EQUATION FOR THE IDMS-TRACEABLE CREATININE METHODS. CLIN CHEM 2007;53:766-72 [email or web address]?RetrieveTestByDateTim e?XoxmnjfRN=[id number]&Da te=05-09-2021&Time=07%3a 43%3a30%3a00&TestType=EC G&Site=1&OutputType=PDF& Ext=PDF [facility] [place] [address] [place] Work Phone: [phone] Please see ED Provid er Note for formal interpretation [facility] [place] [facility] [place] Work Phone: [phone] Normal [facility] [place] [facility] [place] Work Phone: [phone] 1 [facility] [place] Work Phone: [phone] 401 1 [facility] [place] [facility] [place] Work Phone: [phone] [facility] [place] [facility] [place] Work Phone: [phone] 137 1 [facility] [place] [facility] [place] Work Phone: [phone] 218 1 [facility] [place] Work Phone: [phone] 11 1 [facility] [place] Work Phone: [phone] 19 1 [facility] [place] [facility] [place] Work Phone: [phone] 6 1 [facility] [place] [facility] [place] Work Phone: [phone] 1 38 1 [facility] [place] [facility] [place] Work Phone: [phone] 377 1 [facility] [place] [facility] [place] Work Phone: [phone] 366 1 [facility] [place] [facility] [place] Work Phone: [phone] 96 1 [facility] [place] [facility] [place] Work Phone: [phone] 162 1 [facility] [place] [facility] [place] Work Phone: [phone] 64 1 [facility] [place] [facility] [place] Work Phone: [phone] Provider Note - ED v3on 12- [...] does state he was previously seen a expressive art therapist but was fired from the service as the expressive art therapist did not like my attitude . Patient had some borderline soft blood pressures likely secondary to extra dosing of his blood pressure medication due to previous hypertension. Patient was given IV fluids and observed, his blood pressure remained more appropriately stable. He remained otherwise asymptomatic throughout this time. Patient was advised on follow-up with his primary care provider and expressive art therapist. He was discharged in stable clinical status. Clinical Impression: *See section entitled ``Diagnoses/Visit Problems Dispo - DC SANDRO Moncada PGY3 Disclaimer: This note was dictated by speech recognition. Minor errors in beater out may be present. Please DocHalo for questions. [...] Medicatio (more content not included)... Normal [facility] Radiologyon 09-05-2021 XR Chest Single view Normal [facility] sychiatry -[facility] [place] [address] [place] Work Phone: TH CHEST 1 VIEWon 09-05-2021 TH CHEST 1 VIEW Patient Name: HOSEA ALVAREZ STUDY: CHEST 1 VIEW; 09/05/2021 10:15 am INDICATION: CP. COMPARISON: CT dated 08/12/2021 and radiograph dated 08/20/2021 ACCESSION NUMBER(S): [id number] ORDERING CLINICIAN: TARIQ GARCIA FINDINGS: The cardiac silhouette size is slightly enlarged, stable. There is no focal consolidation, edema or pneumothorax. No sizeable pleural effusion. No acute osseous abnormality. IMPRESSION: No focal infiltrate, pleural effusion, edema or pneumothorax. Electronically signed by: JACKSON SHOEMAKER MD Normal [facility] TROPONIN Ion 09-05-2021 Troponin I.cardiac [Mass/Vol] ng/mL Normal 0.00 - 0.03 [facility] Comment on above: Result Comment: [...] is performed using different testing methodology at [facility] than at other [facility]. Direct result comparisons should only be made within the same method. . Biotin interference may cause falsely decreased results. Patients taking a Biotin dose of up to 5 mg/day should refrain from taking Biotin for 24 hours before sample collection. Providers may contact their laboratory for further information. Performed By: #### T ROP2 #### [facility] [address] [place] [address] Troponin I.cardiac [Mass/Vol] ng/mL Normal 0.00 - 0.03 [facility] Comment on above: Result Comment: [...] is performed using different testing methodology at [facility] than at other [facility]. Direct result comparisons should only be made within the same method. . Biotin interference may cause falsely decreased results. Patients taking a Biotin dose of up to 5 mg/day should refrain from taking Biotin for 24 hours before sample collection. Providers may contact their laboratory for further information. Performed By: #### C BCDF #### [facility] [address] [address] Triage - EDon 09-05-2021 Triage - ED Chart Review: ARRIVAL INFORMATION Mode of Arrival: ambulance Agency Name: [facility] CHIEF COMPLAINT HOSEA ALVAREZ is a [...] 07:50 by Nicole Cervantes ([place]) Normal [facility] Troponin I, Serumon 09-05-20 21 Troponin I.cardiac [Mass/Vol] ng/mL See Below [facility] [address] [place] Work Phone: Comment on above: Reference Range: [...] is performed using different testing methodology at [facility] than at other [facility]. Direct result comparisons should only be made within the same method.. Biotin interference may cause falsely decreased results. Patients taking a Biotin dose of up to 5 mg/day should refrain from taking Biotin for 24 hours before sample collection. Providers may contact their laboratory for further information. Troponin I.cardiac [Mass/Vol] ng/mL See [facility] Work Phone: Comment on above: Reference [...] is performed using different testing methodology at [facility] than at other [facility] [facility]. Direct result comparisons should only be made [...] Ascending aortic aneurysm (441.2) (I71.2) Provider Impressions Insurance Underwriter spoke with patient on the phone to provide case management services related to his healthcare. Patient presents as in the contemplation stage of change and is making progress on this objective. Insurance Underwriter provided a brief check in with patient related to his healthcare and current visit to the ED. Patient notes that he was not feeling well so he brought himself to the ED. During the phone call, Patient made inappropriate comments, referring to Insurance Underwriter as 'sweetie', and asking if Insurance Underwriter needs a girlfriend. Patient informed that this is not the kind of conversation Insurance Underwriter would like to have with Patient, and asked how patient is feeling now. Patient notes that he is cold, and is going back inside the hospital. He is concerned about getting exposed to COVID, but also notes that he needs support with getting care. Patient agreed to speak with Insurance Underwriter further later this week. Insurance Underwriter to follow up later this week. Chief Complaint A telephone visit (audio only) between the patient (at the originating site) and the provider (at the distant site) was utilized to provide this telehealth service. Verbal consent was requested and obtained from HOSEA ALVAREZ on this date, 09/04/2021 04:00 PM , for a telehealth visit. Insurance Underwriter spoke with patient on the phone to [...] Sep 07 2021 9:14PM EST (Author) Normal [employer] Clinical Case Managementon 1 11-01-2020 Clinical Case [...] has inconsistent housing currently, but stays in [facility], and [place]. He presents frequently to the ED due [...] understanding of the ins and outs of aids social worker and medical care organizations. He has a great sense of humor, and is able to get around all of the [place] area on his bike. GIven all of this, Insurance Underwriter will provide case management services such as linkage and referral, and coordination of care related to his medical and mental health care. Insurance Underwriter will also provide supportive counseling such as empathic listening, motivational interviewing, and cognitive-behavioral techniques to support the patient in discussing his thoughts and feelings regarding his care. These services will be provided on an at least monthly basis. PADDY Trent Chief Complaint Insurance Underwriter met with patient in the community for initial assessment. This is a 51 year old White male patient currently inconsistently housed, staying in [facility] and [place] with his lady friend. 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 Patient was referred by his primary care doctor due to frequent ED visits. Patient is interested in case management services to support him in remembering and attending medical appointments. History of Present Illness Patient is currently dealing with frequent chest pains, waking up with rapid heartbeat, and anxiety. Patient moved to [place] due to better access to doctors he [...] both his thoracic surgeon's practice, and his expressive art therapist's practice. Patient has been barred entry to several ED's, as well as some at [facility]. Patient does not endorse inpatient psychiatric treatment, and is not currently followed for outpatient psych (more content not included)... Normal [employer] Clinical Case Managementon 1 10-31-2020 Clinical Case Management Diagnosis/Problems Assessed Ascending aortic aneurysm (441.2) (I71.2) Renal artery stenosis (440.1) (I70.1) Acute back pain (724.5) (M54.9) Bipolar 2 disorder (296.89) (F31.81) ETOH abuse (305.00) (F10.10) Palpitations (785.1) (R00.2) Provider Impressions Insurance Underwriter spoke to patient on the phone to provide case management services related to his healthcare. Patient presents as in the precontemplation stage of change and is making minimal progress on his objectives. Insurance Underwriter provided empathic listening and care coordination services to support the patient in discussing his thoughts and feelings and his symptoms with Insurance Underwriter. Patient notes he is concerned about his vascular surgery appointment tomorrow as he believes he needs to have surgery soon. Patient also expressed concern regarding the lack of services available to people in his situation, noting that he wishes to start a homeless outreach organization. Patient also discussed conversations with the compliance department at . Insurance Underwriter agreed to meet patient later this week in person to complete psychosocial assessment. Insurance Underwriter to follow up later this week. Chief Complaint Verbal consent was requested and obtained from HOSEA ALVAREZ on this date, 08/30/2021 01:00 PM , for a telehealth visit. Insurance Underwriter spoke to patient on the phone to [...] Sep 04 2021 4:56PM EST (Author) Normal [employer] Office Visit (Vascular Surge ry)on 08-30-2021 Follow-up [...] the patient today. I have reviewed the INTERIOR SYSTEMS CARPENTER's encounter note, approve the documentation and provide the following information from my personal encounter with the patient. I personally took the history and examined the patient. I have formulated the plan and discussed it with the patient who understood and agreed. Tay Lott MD caramel cutter helper [facility] Division of Vascular Surgery Co-Director, [facility] Chief Complaint The patient presents to the [...] Allergies Medication Caffeine Chest Pain;; Recorded By: Neli Billings; 06/28/2021 9:27:50 AM Erythromycin TABS Adverse [...] obtain - virtual visit Results/Data CT Ang[id number] [facility] Ordering Provider: TRISTON OROZCO [id number] Angio Chest(Report) FINAL REPORT Interpreted by: СВЕТЛАНА MCGOWAN DOUGLAS, DO 08/12/21 22:06 Patient Name: HOSEA ALVAREZ STUDY: CT ANGIO CHEST; 08/12/2021 9:29 pm INDICATION: CP, radiating to back, hx of thoracic aneurysm, Lie Flat: Yes . COMPARISON: 05/08/2021 ACCESSION NUMBER(S): [id number] ORDERING CLINICIAN: TRISTON OROCZO TECHNIQUE: Helical data acquisition of the chest was obtained before and after the administration of intravenous contrast, 90 mL Omnipaque 3 (more content not included)... Normal [employer] Clinical Case Managementon 1 10-30-2020 Clinical Case Management Diagnosis/Problems Assessed Ascending aortic aneurysm (441.2) (I71.2) Renal artery stenosis (440.1) (I70.1) Acute back pain (724.5) (M54.9) Bipolar 2 disorder (296.89) (F31.81) ETOH abuse (305.00) (F10.10) Palpitations (785.1) (R00.2) Provider Impressions Insurance Underwriter spoke to patient on the phone to provide case management services related to his healthcare. Patient presents as in the precontemplation stage of change and is making minimal progress on his objectives. Insurance Underwriter provided empathic listening and care coordination services to support the patient in discussing his thoughts and feelings and his symptoms with Insurance Underwriter. Patient notes he is concerned about his vascular surgery appointment tomorrow as he believes he needs to have surgery soon. Patient also expressed concern regarding the lack of services available to people in his situation, noting that he wishes to start a homeless outreach organization. Patient also discussed conversations with the compliance department at . Insurance Underwriter agreed to meet patient later this week in person to complete psychosocial assessment. Insurance Underwriter to follow up later this week. Chief Complaint Verbal consent was requested and obtained from HOSEA ALVAREZ on this date, 08/30/2021 01:00 PM , for a telehealth visit. Insurance Underwriter spoke to patient on the phone to [...] 04 2021 5:00PM EST (Author) Normal [facility] [employer] Clinical Case Management No report was sent Normal [employer] Heart Rateon 08-28-2021 Heart Rate Regular MG-Cardiology -Home Work Phone: Office Visit (Cardiology)on 08-28-2021 Follow-up [...] ALL MEDICATION PRESCRIBED CALL FOR ANY CONCERNS [phone] Chief Complaint HOSEA ALVAREZ is being seen [...] endorsing cardiology and vascular surgery visits in [place], [place] and [place] over the past 1 year. He has had multiple ED visits and some hospitalizations with various and duplicate testing. He most recently reports going to the [facility] for a CT to evaluate his aorta. He notes compliance with medication although is taking Clonidine 'like candy and has run out of Losartan about 3 day ago. 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 [...] negative for complaint. Vitals Vital Signs Recorded: [id number] 10:24AM Heart Rate80 Pulse QualityRegular [id number], Sitting Gbllogslm39, Sitting Physical Exam Constitutional: alert and in [...] grade 1 (more content not included)... Normal [employer] CBC AND DIFFERENTIALon 08-24 % AUTOMATED IMMATURE GRAN Canceled Normal [facility] Comment on above: Order Comment: TEST CBC AND DIFFERENTIAL WAS CANCELLED, 08/24/2021 18:56 Result Comment: Kath ture Granulocyte Count (IG) includes promyelocytes, myelocytes and metamyelocytes but does not include bands. Percent differential counts (%) should be interpreted in the context of the absolute cell counts (cells/L). Performed By: #### C BCDF #### [facility] [address] [place] [address] % BASOPHIL Canceled Normal [facility] Comment on above: Order Comment: TEST CBC AND DIFFERENTIAL WAS CANCELLED, 08/24/2021 18:56 Performed By: #### C BCDF #### [facility] [address] [place] [address] % EOSINOPHIL Canceled Normal [facility] Comment on above: Order Comment: TEST CBC AND DIFFERENTIAL WAS CANCELLED, 08/24/2021 18:56 Performed By: #### C BCDF #### [facility] [address] [place] [address] % LYMPHOCYTE Canceled Normal [facility] Comment on above: Order Comment: TEST CBC AND DIFFERENTIAL WAS CANCELLED, 08/24/2021 18:56 Performed By: #### C BCDF #### [facility] [address] [place] [address] % MONOCYTE Canceled Normal [facility] Comment on above: Order Comment: TEST CBC AND DIFFERENTIAL WAS CANCELLED, 08/24/2021 18:56 Performed By: #### C BCDF #### [facility] [address] [place] [address] % NEUTROPHIL Canceled Normal [facility] Comment on above: Order Comment: TEST CBC AND DIFFERENTIAL WAS CANCELLED, 08/24/2021 18:56 Performed By: #### C BCDF #### [facility] [address] [place] [address] BASOPHIL Canceled Normal [facility] Comment on above: Order Comment: TEST CBC AND DIFFERENTIAL WAS CANCELLED, 08/24/2021 18:56 Performed By: #### C BCDF #### [facility] [address] [place] [address] DIFFERENTIAL Canceled Normal [facility] Comment on above: Order Comment: TEST CBC AND DIFFERENTIAL WAS CANCELLED, 08/24/2021 18:56 Performed By: #### C BCDF #### [facility] [address] [place] [address] EOSINOPHIL Canceled Normal [facility] Comment on above: Order Comment: TEST CBC AND DIFFERENTIAL WAS CANCELLED, 08/24/2021 18:56 Performed By: #### C BCDF #### [facility] [address] [place] [address] HCT Canceled Normal [facility] Comment on above: Order Comment: TEST CBC AND DIFFERENTIAL WAS CANCELLED, 08/24/2021 18:56 Performed By: #### C BCDF #### [place] [address] [place] [address] HGB Canceled Normal [facility] Comment on above: Order Comment: TEST CBC AND DIFFERENTIAL WAS CANCELLED, 08/24/2021 18:56 Performed By: #### C BCDF #### [facility] [address] [place] [address] LYMPHOCYTE Canceled Normal [facility] Comment on above: Order Comment: TEST CBC AND DIFFERENTIAL WAS CANCELLED, 08/24/2021 18:56 Performed By: #### C BCDF #### [facility] [address] [place] [address] MCHC Canceled Normal [facility] Comment on above: Order Comment: TEST CBC AND DIFFERENTIAL WAS CANCELLED, 08/24/2021 18:56 Performed By: #### C BCDF #### [facility] [address] [place] [address] MCV Canceled Normal [facility] Comment on above: Order Comment: TEST CBC AND DIFFERENTIAL WAS CANCELLED, 08/24/2021 18:56 Performed By: #### C BCDF #### [facility] [address] [place] [id number] MONOCYTE Canceled Normal [facility] Comment on above: Order Comment: TEST CBC AND DIFFERENTIAL WAS CANCELLED, 08/24/2021 18:56 Performed By: #### C BCDF #### [facility] [address] [place] [address] NEUTROPHIL Canceled Normal [facility] Comment on above: Order Comment: TEST CBC AND DIFFERENTIAL WAS CANCELLED, 08/24/2021 18:56 Performed By: #### C BCDF #### [facility] [address] [place] [address] NUCLEATED RBC Canceled Normal [facility] Comment on above: Order Comment: TEST CBC AND DIFFERENTIAL WAS CANCELLED, 08/24/2021 18:56 Performed By: #### C BCDF #### [facility] [address] [place] [address] PLT Canceled Normal [facility] Comment on above: Order Comment: TEST CBC AND DIFFERENTIAL WAS CANCELLED, 08/24/2021 18:56 Performed By: #### C BCDF #### [facility] [address] [place] [address] RBC Canceled Normal [facility] Comment on above: Order Comment: TEST CBC AND DIFFERENTIAL WAS CANCELLED, 08/24/2021 18:56 Performed By: #### C BCDF #### [facility] [address] [place] [address] RDW-CV Canceled Normal [facility] Comment on above: Order Comment: TEST CBC AND DIFFERENTIAL WAS CANCELLED, 08/24/2021 18:56 Performed By: #### C BCDF #### [facility] [address] [place] [address] WBC Canceled Normal [facility] Comment on above: Order Comment: TEST CBC AND DIFFERENTIAL WAS CANCELLED, 08/24/2021 18:56 Performed By: #### C BCDF #### [facility] [address] [place] [address] COMPREHENSIVE PANELon 2020 ALBUMIN Canceled Normal [facility] Comment on above: Order Comment: TEST COMPREHENSIVE PANEL WAS CANCELLED, 08/24/2021 18:56 Performed By: #### C MP #### [facility] [address] [place] [address] ALKALINE PHOSPHATASE Canceled Normal [facility] Comment on above: Order Comment: TEST COMPREHENSIVE PANEL WAS CANCELLED, 08/24/2021 18:56 Performed By: #### C MP #### [facility] [address] [place] [address] ALT Canceled Normal [facility] Comment on above: Order Comment: TEST COMPREHENSIVE PANEL WAS CANCELLED, 08/24/2021 18:56 Result Comment: Yanni ents treated with Sulfasalazine may generate falsely decreased results for ALT. Performed By: #### C MP #### [facility] [address] [place] [address] ANION GAP Canceled Normal [facility] Comment on above: Order Comment: TEST COMPREHENSIVE PANEL WAS CANCELLED, 08/24/2021 18:56 Performed By: #### C MP #### [facility] [address] [place] [address] AST Canceled Normal [facility] Comment on above: Order Comment: TEST COMPREHENSIVE PANEL WAS CANCELLED, 08/24/2021 18:56 Performed By: #### C MP #### [place] [address] [place] [address] BICARBONATE Canceled Normal [facility] Comment on above: Order Comment: TEST COMPREHENSIVE PANEL WAS CANCELLED, 08/24/2021 18:56 Performed By: #### C MP #### [facility] [address] [place] [address] BILIRUBIN,TOTAL Canceled Normal [facility] Comment on above: Order Comment: TEST COMPREHENSIVE PANEL WAS CANCELLED, 08/24/2021 18:56 Performed By: #### C MP #### [facility] [address] [place] [address] CALCIUM Canceled Normal [facility] Comment on above: Order Comment: TEST COMPREHENSIVE PANEL WAS CANCELLED, 08/24/2021 18:56 Performed By: #### C MP #### [facility] [address] [place] [address] CHLORIDE Canceled Normal [facility] Comment on above: Order Comment: TEST COMPREHENSIVE PANEL WAS CANCELLED, 08/24/2021 18:56 Performed By: #### C MP #### [facility] [address] [place] [address] CREATININE Canceled Normal [facility] Comment on above: Order Comment: TEST COMPREHENSIVE PANEL WAS CANCELLED, 08/24/2021 18:56 Performed By: #### C MP #### [facility] [address] [place] [address] GFR- AM. Canceled Normal [facility] [place] Comment on above: Order Comment: TEST COMPREHENSIVE PANEL WAS CANCELLED, 08/24/2021 18:56 Result Comment: CALC ULATIONS OF ESTIMATED GFR ARE PERFORMED USING THE MDRD STUDY EQUATION FOR THE IDMS-TRACEABLE CREATININE METHODS. CLIN CHEM 2007;53:766-72 Performed By: #### C MP #### [facility] [address] [place] [address] GFR-NON AM. Canceled Normal [facility] Comment on above: Order Comment: TEST COMPREHENSIVE PANEL WAS CANCELLED, 08/24/2021 18:56 Performed By: #### C MP #### [facility] [address] [place] [address] GLUCOSE Canceled Normal [facility] Comment on above: Order Comment: TEST COMPREHENSIVE PANEL WAS CANCELLED, 08/24/2021 18:56 Performed By: #### C MP #### [facility] [address] [place] [address] POTASSIUM Canceled Normal [facility] Comment on above: Order Comment: TEST COMPREHENSIVE PANEL WAS CANCELLED, 08/24/2021 18:56 Performed By: #### C MP #### [facility] [address] [place] [address] SODIUM Canceled Normal [facility] Comment on above: Order Comment: TEST COMPREHENSIVE PANEL WAS CANCELLED, 08/24/2021 18:56 Performed By: #### C MP #### [facility] [address] [place] [address] TOTAL PROTEIN Canceled Normal [facility] Comment on above: Order Comment: TEST COMPREHENSIVE PANEL WAS CANCELLED, 08/24/2021 18:56 Performed By: #### C MP #### [facility] [address] [place] [address] UREA NITROGEN Canceled Normal [facility] Comment on above: Order Comment: TEST COMPREHENSIVE PANEL WAS CANCELLED, 08/24/2021 18:56 Performed By: #### C MP #### [facility] [address] [place] [address] TROPONIN Ion 08-24-2021 TROPONIN I Canceled Normal [facility] Comment on above: Order Comment: [...] is performed using different testing methodology at [facility] than at other [facility] [place] [facility]. Direct result comparisons should only be made within the same method. . Biotin interference may cause falsely decreased results. Patients taking a Biotin dose of up to 5 mg/day should refrain from taking Biotin for 24 hours before sample collection. Providers may contact their laboratory for further information. Performed By: #### C BCDF #### [facility] [id number] [place] [address] No Panel Informationon 08-23 [email or web address]?RetrieveTestByDateTim e?MymjsxjRT=[id number]&Da te=10-04-2020&Time=17%3a 54%3a45%3a00&TestType=EC G&Site=1&OutputType=PDF& Ext=PDF [facility] Work Phone: Please see ED Provid er Note for formal interpretation [facility] Work Phone: Normal [facility] Work Phone: 388 1 [facility] Work Phone: 390 1 [facility] Work Phone: 192 1 [facility] Work Phone: 137 1 [facility] Work Phone: 216 1 [facility] Work Phone: 13 1 [facility] Work Phone: 17 1 [facility] Work Phone: -12 1 [facility] Work Phone: 39 1 [facility] Work Phone: 408 1 [facility] Work Phone: 348 1 [facility] Work Phone: 100 1 [facility] Work Phone: 158 1 [facility] Work Phone: 83 1 [facility] Work Phone: Office Visit (Vascular Surge ry)on [...] Vital Signs Recorded: 23Aug2021 04:23PM Heart Rate86 Yduugdvzcil21 Ontzkygn265, RUE, Sitting Zvrejvffx67, RUE, Sitting Height5 ft 6 in Kcywhp158 lb BMI Xwhaticxcs42.93 kg/m2 BSA Calculated2.02 O2 Nklovbjlcp39 Physical Exam smells of alcohol clearly inebriated [...] and palpitations x 20 min- was at [facility] surgery appt- denies sob radiation of pain dizziness N/V Triage Date/Time: 23-Aug-2021 17:50 WILMAN: 2 Pain Rating (0-10): 3 = Mild Vital Signs: Temperature: 97.3F ( 36.3C) taken forehead Blood Pressure: 114/73 Mean: Heart Rate: 87 Respiratory Rate: 18 Pulse Oximetry: 94% on room air, no respiratory support. [place] Coma Scale: Best Eye Response: (E4) spontaneous Best Motor Response: (M6) obeys commands Best Verbal Response: (V5) oriented Lynda Score: 15 [place] Assessment Qualifiers: patient not sedated/intubated and no [...] 17:55 by Nicole Paredes (RN) Normal [facility] CBC AND DIFFERENTIALon 08-20 % AUTOMATED IMMATURE GRAN 0.3 % Normal 0.0 - 0.9 [facility] Comment on above: Result Comment: Kath ture Granulocyte Count (IG) includes promyelocytes, myelocytes and metamyelocytes but does not include bands. Percent differential counts (%) should be interpreted in the context of the absolute cell counts (cells/L). Performed By: #### C BCDF ####[id number] [place] [id number] Basophils (Bld) [#/Vol] 0.02 10*3/uL Normal 0.00 - 0.10 [facility] Comment on above: Performed By: #### C BCDF ####[facility] [id number] [place] [id number] Basophils/100 WBC (Bld) 0.5 % 0.0 - 2.0 [facility] Comment on above: Performed By: #### C BCDF ####[id number] [place] [id number] Eosinophils (Bld) [#/Vol] 0.10 10*3/uL Normal 0.00 - 0.70 [facility] Comment on above: Performed By: #### C BCDF ####[facility] [place] [id number] [place] [id number] Eosinophils/100 WBC (Bld) 2.7 % Normal 0.0 - 6.0 [facility] Comment on above: Performed By: #### C BCDF ####[facility] [place] [id number] [place] [id number] Erythrocyte distribution width (RBC) [Ratio] 13.5 % See Below [facility] Comment on above: Performed By: #### C BCDF ####[place] [id number] [place] [id number] Reference Range: 11. 5 - 14.5 Hematocrit (Bld) [Volume fraction] 39.5 % below low threshold See Below [facility] Comment on above: Performed By: #### C BCDF ####[facility] [id number] [place] [address] Reference Range: 41. 0 - 52.0 Hemoglobin (Bld) [Mass/Vol] 12.9 g/dL below low threshold See Below [facility] Comment on above: Performed By: #### C BCDF ####[facility] [id number] [place] [address] Reference Range: 13. 5 - 17.5 Lymphocytes (Bld) [#/Vol] 0.90 10*3/uL Low 1.20 - 4.80 [facility] Comment on above: Performed By: #### C BCDF ####[facility] [id number] [place] [address] Lymphocytes/100 WBC (Bld) 24.5 % See Below [facility] Comment on above: Performed By: #### C BCDF ####[facility] [id number] [place] [address] Reference Range: 13. 0 - 44.0 MCHC (RBC) [Mass/Vol] 32.7 g/dL See Below [facility] Comment on above: Performed By: #### C BCDF ####[facility] [id number] [place] [address] Reference Range: 32. 0 - 36.0 MCV (RBC) [Entitic vol] 87 fL 80 - 100 [facility] Comment on above: Performed By: #### C BCDF ####[facility] [id number] [place] [address] Monocytes (Bld) [#/Vol] 0.39 10*3/uL Normal 0.10 - 1.00 [facility] Comment on above: Performed By: #### C BCDF ####[facility] [id number] [place] [address] Monocytes/100 WBC (Bld) 10.6 % 2.0 - 10.0 [facility] Comment on above: Performed By: #### C BCDF ####[facility] [id number] [place] [address] Neutrophils (Bld) [#/Vol] 2.25 10*3/uL Normal 1.20 - 7.70 [facility] Comment on above: Performed By: #### C BCDF ####[facility] [id number] [place] [address] Neutrophils/100 WBC (Bld) 61.4 % See Below [facility] Comment on above: Performed By: #### C BCDF ####[facility] [id number] [place] [address] Reference Range: 40. 0 - 80.0 Platelets (Bld) [#/Vol] 134 10*3/uL below low threshold 150 - 450 [facility] Comment on above: Result Comment: Plat elet count verified by smear review. Performed By: #### C BCDF ####[facility] [id number] [place] [id number] Platelet count verif ied by smear review. RBC 4.54 x10E12/L Normal 4.50 - 5.90 [facility] Comment on above: Performed By: #### C BCDF ####[facility] [id number] [place] [address] WBC (Bld) [#/Vol] 3.7 10*3/uL below low threshold 4.4 - 11.3 [facility] Comment on above: Performed By: #### C BCDF ####[facility] [id number] [place] [address] CHEST 1 VIEWon 08-20-2021 CHEST 1 VIEW Patient Name: HOSEA ALVAREZ STUDY: CHEST 1 VIEW; 08/20/2021 9:44 am INDICATION: HTN . COMPARISON: 08/12/2021. ACCESSION NUMBER(S): [id number] ORDERING CLINICIAN: GUILLERMO TONY FINDINGS: CARDIOMEDIASTINAL SILHOUETTE: Aortic prominence/tortuosity is similar to prior. Cardiac silhouette is borderline in size but stable. LUNGS: No focal infiltrate. No pleural effusion or pneumothorax. ABDOMEN: No remarkable upper abdominal findings. BONES: No acute osseous changes. IMPRESSION: 1. No evidence of acute cardiopulmonary process. No significant change from prior. Electronically signed by: CHEO MARIE MD Normal [facility] COMPREHENSIVE PANELon 2020 Albumin [Mass/Vol] 4.2 g/dL Normal 3.4 - 5.0 [facility] Comment on above: Performed By: #### C MP ####[facility] [id number] [place] [id number] ALP [Catalytic activity/Vol] 54 U/L 33 - 120 [facility] Comment on above: Performed By: #### C MP ####[facility] [address] [id number] [place] [address] ALT [Catalytic activity/Vol] 25 U/L Normal 10 - 52 [facility] Comment on above: Result Comment: Yanni ents treated with Sulfasalazine may generate falsely decreased results for ALT. Performed By: #### C MP ####[facility] [address] [id number] [place] [address] Anion gap [Moles/Vol] 10 mmol/L 10 - 20 [facility] Comment on above: Performed By: #### C MP ####[facility] [address] [id number] [place] [address] AST [Catalytic activity/Vol] 20 U/L Normal 9 - 39 [facility] Comment on above: Performed By: #### C MP ####[facility] [address] [id number] [place] [address] Bilirubin [Mass/Vol] 0.5 mg/dL 0.0 - 1.2 [facility] [place] Comment on above: Performed By: #### C MP ####[facility] [address] [id number] [place] [address] Calcium [Mass/Vol] 9.1 mg/dL 8.6 - 10.3 [facility] Comment on above: Performed By: #### C MP ####[facility] [address] [id number] [place] [address] Chloride [Moles/Vol] 103 mmol/L 98 - 107 [facility] [place] Comment on above: Performed By: #### C MP ####[facility] [address] [id number] [place] [address] Creatinine [Mass/Vol] 0.91 mg/dL See Below [facility] Comment on above: Performed By: #### C MP ####[facility] [id number] [place] [id number] Reference Range: 0.5 0 - 1.30 GFR- AM. >60 Normal >60 [facility] Comment on above: Result Comment: CALC ULATIONS OF ESTIMATED GFR ARE PERFORMED USING THE MDRD STUDY EQUATION FOR THE IDMS-TRACEABLE CREATININE METHODS. CLIN CHEM 2007;53:766-72 Performed By: #### C MP ####[facility] [address] [id number] [place] [address] GFR-NON AM. >60 Normal >60 [facility] Comment on above: Performed By: #### C MP ####[facility] [address] [id number] [place] [address] Glucose [Mass/Vol] 96 mg/dL 74 - 99 [facility] Comment on above: Performed By: #### C MP ####[facility] [address] [id number] [place] [address] HCO3 (Bld) [Moles/Vol] 29 mmol/L Normal 21 - 32 [facility] Comment on above: Performed By: #### C MP ####[facility] [address] [id number] [place] [address] Potassium [Moles/Vol] 4.1 mmol/L 3.5 - 5.3 [facility] Comment on above: Performed By: #### C MP ####[facility] [address] [id number] [place] [address] Protein [Mass/Vol] 6.6 g/dL 6.4 - 8.2 [facility] Comment on above: Performed By: #### C MP ####[facility] [address] [id number] [place] [id number] Sodium [Moles/Vol] 138 mmol/L 136 - 145 [facility] Comment on above: Performed By: #### C MP ####[facility] [id number] [place] [id number] Urea nitrogen [Mass/Vol] 15 mg/dL 6 - [facility] Comment on above: Performed By: #### C MP ####[facility] [id number] [place] [address] Complete Blood Count + Diffe rentialon 08-20-2021 RBC (Bld) [#/Vol] 4.54 {x10E12/L} See Below [facility] Work Phone: Comment on above: Reference Range: 4.5 0 - 5.90 Complete Blood Count + Differential 0.02 {x10E9/L} See Below [facility] Work Phone: Comment on above: Reference Range: 0.0 0 - 0.10 Complete Blood Count + Differential 0.10 {x10E9/L} See Below [facility] Work Phone: Comment on above: Reference Range: 0.0 0 - 0.70 Complete Blood Count + Differential 0.39 {x10E9/L} See Below [facility] Work Phone: Comment on above: Reference Range: 0.1 0 - 1.00 Complete Blood Count + Differential 0.90 {x10E9/L} below low threshold See Below [facility] Work Phone: Comment on above: Reference Range: 1.2 0 - 4.80 Complete Blood Count + Differential 2.25 {x10E9/L} See Below [facility] Work Phone: Comment on above: Reference Range: 1.2 0 - 7.70 Complete Blood Count + Differential 2.7 % 0.0 - 6.0 [facility] Work Phone: Complete Blood Count + Differential 0.3 % 0.0 - 0.9 [facility] Work Phone: Comment on above: Immature Granulocyte Count (IG) includes promyelocytes, myelocytes and metamyelocytes but does not include bands. Percent differential counts (%) should be interpreted in the context of the absolute cell counts (cells/L). ED NOTEon 08-20-2021 ED NOTE HNO ID: [id number] Author: Sendy Graham RN Service: Nursing Author Type: Registered Nurse Type: ED Notes Filed: 08/20/2021 2:23 AM Note Text: Discharge papers reviewed with patient. Patient verbally acknowledged discharge instructions. [facility] ED PROV NOTEon 08-20-2021 ED PROV NOTE HNO ID: [id number] Author: Kay Cruz MD Service: Emergency Medicine Author Type: Physician Type: ED Provider Notes Filed: 08/20/2021 3:51 AM Note Text: ED Continuation of Care Note August 20, 2021 3:51 AM Hosea Brennon Antonio was endorsed to me by [facility] . The patient initially presented to [...] normal axis and QRS complex normal, normal CT and QT intervals and ST segment normal, [...] AV,EU,FV,HL,RENE,MM,SP) Kay Cruz MD 08/20/21 0351 Normal [facility] High Sens Troponin Ton 08-20 High Sensitivity SITA 7 ng/L Normal <12 [facility] Comment on above: Result Comment: When [...] Suggest reorder as clinically indicated. Normal <12 [facility] Laboratory - Chemistry and C hemistry - challengeon 08-20-2021 Albumin BCP dye [Mass/Vol] 4.2 g/dL 3.4 - 5.0 [facility] Work Phone: ALT With P-5'-P [Catalytic activity/Vol] 25 U/L 10 - 52 [facility] Work Phone: Comment on above: Patients treated wit h Sulfasalazine may generate falsely decreased results for ALT. AST With P-5'-P [Catalytic activity/Vol] 20 U/L 9 - 39 [facility] Work Phone: CO2 [Moles/Vol] 29 mmol/L 21 - 32 [facility] Work Phone: No Panel Informationon 08-20 [email or web address]?RetrieveTestByDateTim e?KrsytqnZO=[id number]&Da te=20-08-2021&Time=11%3a 04%3a49%3a00&TestType=EC G&Site=2&OutputType=PDF& Ext=PDF [facility] Work Phone: Sinus bradycardia [facility] Work Phone: Abnormal [facility] Work Phone: 373 1 [facility] Work Phone: 400 1 [facility] Work Phone: 171 1 [facility] Work Phone: 117 1 [facility] Work Phone: 210 1 [facility] Work Phone: 9 1 [facility] Work Phone: -5 1 [facility] Work Phone: -15 1 [facility] Work Phone: 17 1 [facility] Work Phone: 369 1 [facility] Work Phone: 380 1 [facility] Work Phone: 98 1 [facility] Work Phone: 186 1 [facility] Work Phone: 57 1 [facility] Work Phone: >60 >60 [facility] Work Phone: Comment on above: CALCULATIONS OF [...] pressure. Patient states he was seen at [facility] for high blood pressure, was turned away so he went to [place], was treated and discharged, but took his own blood pressure and noticed it was high so decided to check back in to [facility], but was refused and claims he was [...] third emergency room visit. Recently seen at [place] yesterday and discharged and tried to go back into [place] and states he was refused. He comes [...] swelling. Skin (more content not included)... Normal [facility] Radiologyon 08-20-2021 XR Lumbar spine AP and Lateral Normal [facility] Work Phone: XR Chest Single view Normal [facility] Work Phone: SPINE, LUMBOSACRAL; 2 OR 3 V IEWSon 08-20-2021 SPINE, LUMBOSACRAL; 2 OR 3 VIEWS Patient Name: HOSEA ALVAREZ STUDY: SPINE, LUMBOSACRAL; 2 OR 3 VIEWS; 08/20/2021 12:04 pm INDICATION: low back pain . COMPARISON: None. ACCESSION NUMBER(S): [id number] ORDERING CLINICIAN: SAHIL MACLELLAN FINDINGS: Three views [...] Electronically signed by: APOORVA BELLE MD Normal [facility] TROPONIN Ion 08-20-2021 Troponin I.cardiac [Mass/Vol] 0.02 ng/mL See Below [facility] Comment on above: Result Comment: [...] is performed using different testing methodology at [facility] than at other [facility] [place] [facility]. Direct result comparisons should only be made within the same method. Performed By: #### T ROP2 ####[facility] [id number] [place] [address] Reference Range: 0.0 0 - 0.03LESS THAN 0.04 NG/ML: NEGATIVEREPEAT TESTING IN THREE TO SIX HOURSIF CLINICALLY INDICATED.0.04 - 0.5 NG/ML: CONSISTENT WITH POSSIBLECARDIAC DAMAGE AND POSSIBLE INCREASEDCLINICAL RISK.SERIAL MEASUREMENTS MAY HELP ASSESS EXTENT OFMYOCARDIAL DAMAGE.>0.5 NG/ML: CONSISTENT WITH CARDIAC DAMAGE,INCREASED CLINICAL RISK AND MYOCARDIALINFARCTION. SERIAL MEASUREMENTS MAY HELPASSESS EXTENT OF MYOCARDIAL DAMAGE..Note: Troponin I testing is performed using different testing methodology at [facility] than at other [facility] [place] [facility]. Direct result comparisons should only be made within the same method. Triage - EDon 08-20-2021 Triage - ED Chart Review: ARRIVAL INFORMATION Mode of Arrival: ambulance Agency Name: [facility] CHIEF COMPLAINT HOSEA ALVAREZ is a Male patient with a chief complaint of hypertension. Onset of the Complaint: 20-Aug-2021 Other Complaints: Patient brought to ER by EMS with complaints of high blood pressure. Patient states he was seen at [facility] for high blood pressure, was turned away so he went to [place], was treated and discharged, but took his own blood pressure and noticed it was high so decided to check back in to [facility], but was refused and claims he was [...] BMI (kg/m2): 32.040 Calculated BSA (m2) 2.05 [place] Coma Scale: Best Eye Response: (E4) spontaneous [...] Updated: 20-Aug-2021 09:24 by Ellie Rodriguez ([place]) [facility] ALLIED HEALTH 08-19-2021 ALLIED HEALTH HNO ID: [id number] Author: RT Chip(Dianne) Service: Radiology Author Type: Technologist Type: Allied Health Filed: 08/19/2021 8:08 PM Note Text: Radiology Service Progress Note PATIENT NAME: Hosea Alavrez DATE OF SERVICE: August 19, 2021 TIME: [...] Chip(R) August 19, 2021 8:08 PM Normal [facility] CBC and Differentialon 08-19 Abs Baso <0.03 Normal <0.11 [facility] Abs Brown 0.34 k/uL Normal <0.87 [facility] Abs Neut 2.00 k/uL Normal 1.45-7.50 [facility] Absolute nRBC <0.01 Normal <0.01 [facility] Basophils/100 WBC (Bld) 0.6 % Normal [facility] DTYPE Auto Diff Normal [facility] Eosinophils (Bld) [#/Vol] 0.06 10*3/uL Normal <0.46 [facility] Eosinophils/100 WBC (Bld) 1.9 % Normal [facility] Erythrocyte distribution width (RBC) [Ratio] 13.5 % Normal 11.5-15.0 [facility] Hematocrit (Bld) [Volume fraction] 38.8 % Low 39.0-51.0 [facility] Hemoglobin (Bld) [Mass/Vol] 13.1 g/dL Normal 13.0-17.0 [facility] Lymphocytes (Bld) [#/Vol] 0.80 10*3/uL Low 1.00-4.00 [facility] Lymphocytes/100 WBC (Bld) 24.7 % Normal [facility] MCH 28.7 pG Normal 26.0-34.0 [facility] MCHC (RBC) [Mass/Vol] 33.8 g/dL Normal 30.5-36.0 [facility] MCV (RBC) [Entitic vol] 85.1 fL Normal 80.0-100.0 [facility] Monocytes/100 WBC (Bld) 10.5 % Normal [facility] Neutrophils/100 WBC (Bld) 62.3 % Normal [facility] NRBCs 0.0 /100 WBC Normal 0 [facility] Platelet mean volume (Bld) [Entitic vol] 11.7 fL Normal 9.0-12.7 [facility] Platelets (Bld) [#/Vol] 145 10*3/uL Low 150-400 [facility] RBC (Bld) [#/Vol] 4.56 10*6/uL Normal 4.20-6.00 [facility] WBC (Bld) [#/Vol] 3.24 10*3/uL Low 3.70-11.00 [facility] Comp Metabolic Panelon 08-19 Albumin [Mass/Vol] 4.4 g/dL Normal 3.9-4.9 [facility] ALP [Catalytic activity/Vol] 66 U/L Normal 38-113 [facility] ALT [Catalytic activity/Vol] 25 U/L Normal 10-54 [facility] Anion gap [Moles/Vol] 14 mmol/L Normal 9-18 [facility] AST [Catalytic activity/Vol] 22 U/L Normal 14-40 [facility] Bilirubin [Mass/Vol] 0.3 mg/dL Normal 0.2-1.3 [facility] Calcium [Mass/Vol] 9.5 mg/dL Normal 8.5-10.2 [facility] Chloride [Moles/Vol] 103 mmol/L Normal 97-105 [facility] CO2 [Moles/Vol] 24 mmol/L Normal 22-33 [facility] Creatinine [Mass/Vol] 0.98 mg/dL Normal 0.73-1.22 [facility] eGFR- Amer. >60 Normal [facility] eGFR-All Other Races >60 Normal [facility] Comment on above: Result Comment: eGFR [...] kidney.org/professionals/kdoqi/gfr_calculator. Glucose [Mass/Vol] 105 mg/dL High 74-99 [facility] Potassium [Moles/Vol] 4.2 mmol/L Normal 3.7-5.1 [facility] Protein [Mass/Vol] 7.0 g/dL Normal 6.3-8.0 [facility] Sodium [Moles/Vol] 141 mmol/L Normal 136-144 [facility] Urea nitrogen [Mass/Vol] 15 mg/dL Normal 9-24 [facility] ED NOTEon 08-19-2021 ED NOTE HNO ID: [id number] Author: Vita Guerrero RN Service: Nursing Author Type: Registered Nurse Type: ED Notes Filed: 08/19/2021 7:39 PM Note Text: Patient refused to leyt nurse put the bedside rail because it makes him feel uncomfortable. Patient educated to call before he gets up. [facility] ED NOTE HNO ID: [id number] Author: Vita Guerrero RN Service: Nursing Author Type: Registered Nurse Type: ED Notes Filed: 08/19/2021 7:38 PM Note Text: Patient was seen at [facility] twice today for chest pain and patient was fully worked up and discharge. Once patient was discharge he called EMS and had them bring him to [place]. Patient is complaining of midline back pain and dizziness when he stands up. [facility] ED NOTE HNO ID: [id number] Author: Tabby Rhodes RN Service: ? Author Type: Registered Nurse Type: ED Notes Filed: 08/19/2021 7:14 PM Note Text: Bed: ED-08 Expected date: 08/19/21 Expected time: Means of arrival: [facility] FD ([phone]) Comments: [facility] [place] 741 [facility] ED PROV NOTEon 08-19-2021 ED PROV NOTE HNO ID: [id number] Author: Nessa Alejandre DO Service: Emergency Medicine [...] diarrhea. Patient reports he was seen at [facility] twice earlier today. He states because the docs over there are contract physicians that they did not want to see him because they did not like his attitude. States he has a history of a thoracic aneurysm and is supposed to see a physician down in [place]. He states he sees a expressive art therapist over at Home. He states because of his size of his aneurysm is close to 5 cm that he likely needs to have surgery soon. History provided by: Patient environmental planner used: No PAST MEDICAL HISTORY Diagnosis Date [...] - Caffeine Rash Other reaction(s): Shakiness - [place] GI Upset, Rash, Vomiting Statused by Person: ?Imelda Meza.(Altaf Meza2) on Statused by Person: ?SRAVANTHI MONGE([facility]) on Statused by Person: ?Imelda Meza.(T Derrick2) on Statused by Person: ?SRAVANTHI MONGE(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 Normal [facility] High Sens Troponin Ton 08-19 High Sensitivity SITA Unable to assay due to interference from hemolysis. Suggest reorder as clinically indicated. Normal <12 [facility] High Sensitivity SITA 7 ng/L Normal <12 [facility] Comment on above: Result Comment: When [...] Magnesium [Mass/Vol] 1.7 mg/dL Normal 1.7-2.3 [facility] Provider Note - ED v3on 07-25 Provider Note - ED v3 Provider Note: Chart Review: ED NOTES ED NOTES: HPI: 51 y/o M past medical hx renal artery stenosis. Patient c/o back pain. Provoking - patient was seen here earlier today and medically cleared after being inapproriate with staff. Patient was then seen at [facility] and treated and released. He is returning [...] From Triage - ED 19-Aug-2021 17:48 Normal [facility] Provider Note - ED v3 Provider Note: [...] Signatures: Lynnette (more content not included)... Normal [facility] Triage - EDon 08-19-2021 Triage - ED [...] BMI (kg/m2): 32.040 Calculated BSA (m2) 2.05 [place] Coma Scale: Best Eye Response: (E4) spontaneous Best Motor Response: (M6) obeys commands Best Verbal Response: (V5) oriented Oakwood Score: 15 Cough lasting greater than 3 [...] Updated: 19-Aug-2021 12:14 by Benjamin Gilman (EMT-P) [facility] XR CHEST 2V FRONTAL/LATon XR CHEST 2V [...] on Aug 19 2021 8:31PM EST [id number] [facility] Provider Note - ED Care Reyes jerion [...] patient has appointment with the doctor in [place] that he has not yet seen. Additionally patient has establish care where he is from in [place]. Patient is given return precautions and is [...] 14-Aug-2021 12:47 by Triston Orozco) Normal [facility] CBCon 08-12-2021 Erythrocyte distribution width (RBC) [Ratio] 13.2 % Normal 11.5 - 14.5 [facility] Comment on above: Performed By: #### C BC ####[id number] [place] [address] Hematocrit (Bld) [Volume fraction] 35.8 % Low 41.0 - 52.0 [facility] Comment on above: Performed By: #### C BC ####[id number] [place] [address] Hemoglobin (Bld) [Mass/Vol] 11.5 g/dL Low 13.5 - 17.5 [facility] Comment on above: Performed By: #### C BC ####[id number] [place] [address] MCHC (RBC) [Mass/Vol] 32.1 g/dL Normal 32.0 - 36.0 [facility] Comment on above: Performed By: #### C BC ####[id number] [place] [address] MCV (RBC) [Entitic vol] 86 fL Normal 80 - 100 [facility] Comment on above: Performed By: #### C BC ####[id number] [place] [address] NUCLEATED RBC 0.0 /100 WBC Normal 0.0-0.0 [facility] [place] Comment on above: Performed By: #### C BC ####[id number] [place] [address] Platelets (Bld) [#/Vol] 148 10*3/uL Low 150 - 450 [facility] Comment on above: Performed By: #### C BC ####[id number] [place] [address] RBC 4.18 x10E12/L Low 4.50 - 5.90 [facility] Comment on above: Performed By: #### C BC ####[id number] [place] [address] WBC (Bld) [#/Vol] 3.6 10*3/uL Low 4.4 - 11.3 [facility] Comment on above: Performed By: #### C BC ####[id number] [place] [address] CT Angio Cheston 08-12-2021 CTA Chest vessels Normal [facility] Work Phone: Laboratory - Hematology and Cell countson 08-12-2021 Erythrocyte distribution width (RBC) [Ratio] 13.2 % See Below [facility] Work Phone: Comment on above: Reference Range: 11. 5 - 14.5 Hematocrit (Bld) [Volume fraction] 35.8 % below low threshold See Below [facility] Work Phone: Comment on above: Reference Range: 41. 0 - 52.0 Hemoglobin (Bld) [Mass/Vol] 11.5 g/dL below low threshold See Below [facility] Work Phone: Comment on above: Reference Range: 13. 5 - 17.5 MCHC (RBC) [Mass/Vol] 32.1 g/dL See Below [facility] Work Phone: Comment on above: Reference Range: 32. 0 - 36.0 MCV (RBC) [Entitic vol] 86 fL 80 - 100 [facility] Work Phone: Platelets (Bld) [#/Vol] 148 10*3/uL below low threshold 150 - 450 [facility] Work Phone: RBC (Bld) [#/Vol] 4.18 {x10E12/L} below low threshold See Below [facility] Work Phone: Comment on above: Reference Range: 4.5 0 - 5.90 WBC (Bld) [#/Vol] 3.6 10*3/uL below low threshold 4.4 - 11.3 [facility] Work Phone: No Panel Informationon 08-12 0.0 {/100_WBC} 0.0-0.0 [facility] Work Phone: Provider Note - ED v3on [...] middle of his back. He went to [facility] and was sent home after being [...] docu (more content not included)... Normal [facility] RENAL FUNCTION PANELon 08-12 Albumin [Mass/Vol] 4.1 g/dL Normal 3.4 - 5.0 [facility] Comment on above: Performed By: #### C BCDF #### [facility] [address] [place] [address] Anion gap [Moles/Vol] 14 mmol/L Normal - [facility] Comment on above: Performed By: #### C BCDF #### [facility] [address] [place] [address] Calcium [Mass/Vol] 8.6 mg/dL Normal 8.6 - 10.6 [facility] Comment on above: Performed By: #### C BCDF #### [facility] [address] [place] [address] Chloride [Moles/Vol] 106 mmol/L Normal 98 - 107 [facility] Comment on above: Performed By: #### C BCDF #### [facility] [address] [place] [address] Creatinine [Mass/Vol] 1.15 mg/dL Normal 0.50 - 1.30 [facility] Comment on above: Performed By: #### C BCDF #### [facility] [address] [place] [address] GFR- AM. >60 Normal >60 [facility] [place] Comment on above: Result Comment: CALC ULATIONS OF ESTIMATED GFR ARE PERFORMED USING THE MDRD STUDY EQUATION FOR THE IDMS-TRACEABLE CREATININE METHODS. CLIN CHEM 2007;53:766-72 Performed By: #### C BCDF #### [place] [address] [place] [address] GFR-NON AM. >60 Normal >60 [facility] Comment on above: Performed By: #### C BCDF #### [place] [address] [place] [address] Glucose [Mass/Vol] 87 mg/dL Normal 74 - 99 [facility] Comment on above: Performed By: #### C BCDF #### [place] [address] [place] [address] HCO3 (Bld) [Moles/Vol] 25 mmol/L Normal 21 - 32 [facility] Comment on above: Performed By: #### C BCDF #### [facility] [address] [place] [address] Phosphate [Mass/Vol] 3.7 mg/dL Normal 2.5 - 4.9 [facility] Comment on above: Result Comment: The performance characteristics of phosphorus testing in heparinized plasma have been validated by the individual laboratory site where testing is performed. Testing on heparinized plasma is not approved by the FDA; however, such approval is not necessary. Performed By: #### C BCDF #### [facility] [address] [place] [address] Potassium [Moles/Vol] 4.4 mmol/L Normal 3.5 - 5.3 [facility] Comment on above: Performed By: #### C BCDF #### [facility] [address] [place] [address] Sodium [Moles/Vol] 141 mmol/L Normal 136 - 145 [facility] Comment on above: Performed By: #### C BCDF #### [facility] [address] [place] [address] Urea nitrogen [Mass/Vol] 13 mg/dL Normal 6 - 23 [facility] Comment on above: Performed By: #### C BCDF #### [facility] [address] [place] [address] Radiologyon 08-12-2021 XR Chest Single view Normal [facility] Work Phone: Renal Function Panelon 08-12 Albumin BCP dye [Mass/Vol] 4.1 g/dL 3.4 - 5.0 [facility] Work Phone: Anion gap [Moles/Vol] 14 mmol/L 10 - 20 [facility] Work Phone: [phone] Calcium [Mass/Vol] 8.6 mg/dL 8.6 - 10.6 [facility] Work Phone: [phone] Chloride [Moles/Vol] 106 mmol/L 98 - 107 [facility] Work Phone: [phone] CO2 [Moles/Vol] 25 mmol/L 21 - 32 [facility] Work Phone: Creatinine [Mass/Vol] 1.15 mg/dL See Below [facility] Work Phone: Comment on above: Reference Range: 0.5 0 - 1.30 Glucose [Mass/Vol] 87 mg/dL 74 - 99 [facility] Work Phone: Phosphate [Mass/Vol] 3.7 mg/dL 2.5 - 4.9 [facility] Work Phone: Comment on above: The performance tahira acteristics of phosphorus testing in heparinized plasma have been validated by the individual laboratory site where testing is performed. Testing on heparinized plasma is not approved by the FDA; however, such approval is not necessary. Potassium [Moles/Vol] 4.4 mmol/L 3.5 - 5.3 [facility] Work Phone: Sodium [Moles/Vol] 141 mmol/L 136 - 145 [facility] Work Phone: Urea nitrogen [Mass/Vol] 13 mg/dL 6 - 23 [facility] Work Phone: Renal Function Panel >60 >60 [facility] Work Phone: Comment on above: CALCULATIONS OF [...] material; verbal instruction Cultural Considerationsnone Developmental Considerationsnone Presybeterian Considerationsnone Learning Assessment (Other Learner): Learning Assessment (Other Learner): Other learner availableno Pressure Injury/TB/Substance: Pressure Injury: Pressure Injury Present on Admissionno Do you have a coughno Smoking Statusnever smoker Alcohol Usedaily Drug Usedenies Admission Risk Screen: Significant IndicatorsComplete CAGE: CAGE: Is this an injured patient at a Trauma Center ([facility]/[place] /[place]): no Electronic Signatures: Pavel Lopes ([place]) (Signed 12-Aug-2021 21:52) Authored: Preferred Language, Advanced Directives, Family Violence Adult, Learning Assessment (Patient), Learning Assessment (Other Learner), Pressure Injury/TB/Substance, Pressure Injury, CAGE Last Updated: 12-Aug-2021 21:52 by Pavel Lopes) [facility] TH CHEST 1 VIEWon 08-12-2021 TH CHEST 1 VIEW Patient Name: HOSEA ALVAREZ STUDY: CHEST 1 VIEW; 08/12/2021 6:30 pm INDICATION: chest pain . COMPARISON: 07/14/2021 ACCESSION NUMBER(S): [id number] ORDERING CLINICIAN: TRICE CLARK FINDINGS: AP radiograph of the chest was provided. CARDIOMEDIASTINAL SILHOUETTE: Cardiomediastinal silhouette is normal in size and configuration. LUNGS: No focal consolidation, sizeable pleural effusion, or pneumothorax is evident. ABDOMEN: No remarkable upper abdominal findings. BONES: No acute osseous changes. IMPRESSION: 1. No evidence of acute cardiopulmonary process. Electronically signed by: AMBER VILLANUEVA MD [facility] CT ANGIO CHESTon 08-12-20 CT ANGIO CHEST Patient Name: HOSEA ALVAREZ STUDY: CT ANGIO CHEST; 08/12/2021 9:29 pm INDICATION: CP, radiating to back, hx of thoracic aneurysm, Lie Flat: Yes . COMPARISON: 05/08/2021 ACCESSION NUMBER(S): [id number] ORDERING CLINICIAN: TRISTON OROZCO TECHNIQUE: Helical data [...] signed by: СВЕТЛАНА MCGOWAN, DO Normal [facility] TROPONIN Ion 08-12-2021 Troponin I.cardiac [Mass/Vol] ng/mL Normal 0.00 - 0.03 [facility] Comment on above: Result Comment: [...] is performed using different testing methodology at [facility] than at other [facility] [place] [facility]. Direct result comparisons should only be made within the same method. . Biotin interference may cause falsely decreased results. Patients taking a Biotin dose of up to 5 mg/day should refrain from taking Biotin for 24 hours before sample collection. Providers may contact their laboratory for further information. Performed By: #### T ROP2 ####[id number] [place] [address] Triage - EDon 08-12-2021 Triage - ED Chart Review: ARRIVAL INFORMATION Mode of Arrival: ambulance Agency Name: [facility] CHIEF COMPLAINT HOSEA ALVAREZ is a Male patient with a chief complaint of chest pain. Triage Date/Time: 12-Aug-2021 17:23 WILMAN: 3 Vital Signs: Temperature: 98.2F ( 36.8C) Blood Pressure: 128/81 Mean: Heart Rate: 57 Respiratory Rate: 18 Pulse Oximetry: 96% on room air, no respiratory support. Height: 5 feet 6.00 inches. 167.6 CM Weight: pounds. Calculated kg. (stated) [place] Coma Scale: Best Eye Response: (E4) spontaneous [...] 12-Aug-2021 17:25 by Batsheva Gray) Normal [facility] Troponin I, Serumon 08-12-20 21 Troponin I.cardiac [Mass/Vol] ng/mL See Below [facility] Work Phone: Comment on above: Reference Range: [...] is performed using different testing methodology at [facility] than at other [facility] [place] [facility] [place]. Direct result comparisons should only be made within the same method.. Biotin interference may cause falsely decreased results. Patients taking a Biotin dose of up to 5 mg/day should refrain from taking Biotin for 24 hours before sample collection. Providers may contact their laboratory for further information. CBC AND DIFFERENTIALon 08-10 % AUTOMATED IMMATURE GRAN 0.3 % Normal 0.0 - 0.9 [facility] Comment on above: Result Comment: Kath ture Granulocyte Count (IG) includes promyelocytes, myelocytes and metamyelocytes but does not include bands. Percent differential counts (%) should be interpreted in the context of the absolute cell counts (cells/L). Performed By: #### C BCDF ####[facility] [place], [place] [id number] Basophils (Bld) [#/Vol] 0.02 10*3/uL Normal 0.00 - 0.10 [facility] Comment on above: Performed By: #### C BCDF ####[facility] [place], [place] [id number] Basophils/100 WBC (Bld) 0.5 % Normal 0.0 - 2.0 [facility] Comment on above: Performed By: #### C BCDF ####[facility] [place], [place] [id number] Eosinophils (Bld) [#/Vol] 0.07 10*3/uL Normal 0.00 - 0.70 [facility] Comment on above: Performed By: #### C BCDF ####[facility] [facility] [place], [place] [id number] Eosinophils/100 WBC (Bld) 1.9 % Normal 0.0 - 6.0 [facility] Comment on above: Performed By: #### C BCDF ####[facility] [facility] [place], [place] [id number] Erythrocyte distribution width (RBC) [Ratio] 13.2 % Normal 11.5 - 14.5 [facility] Comment on above: Performed By: #### C BCDF ####[facility] [facility] [place], [place] [id number] Hematocrit (Bld) [Volume fraction] 36.0 % Low 41.0 - 52.0 [facility] Comment on above: Performed By: #### C BCDF ####[facility] [facility] [place], [place] [phone] Hemoglobin (Bld) [Mass/Vol] 12.4 g/dL Low 13.5 - 17.5 [facility] Comment on above: Performed By: #### C BCDF ####[facility] [facility] [place], [place] [id number] Lymphocytes (Bld) [#/Vol] 0.87 10*3/uL Low 1.20 - 4.80 [facility] Comment on above: Performed By: #### C BCDF ####[facility] [facility] [place], [place] [phone] Lymphocytes/100 WBC (Bld) 23.2 % Normal 13.0 - 44.0 [facility] Comment on above: Performed By: #### C BCDF ####[facility] [facility] [place], [place] [id number] MCHC (RBC) [Mass/Vol] 34.4 g/dL Normal 32.0 - 36.0 [facility] Comment on above: Performed By: #### C BCDF ####[facility] [facility] [place], [place] [id number] MCV (RBC) [Entitic vol] 83 fL Normal 80 - 100 [facility] Comment on above: Performed By: #### C BCDF ####[facility] [facility] [place], [place] [id number] Monocytes (Bld) [#/Vol] 0.33 10*3/uL Normal 0.10 - 1.00 [facility] Comment on above: Performed By: #### C BCDF ####[address] [place], [place] [id number] Monocytes/100 WBC (Bld) 8.8 % Normal 2.0 - 10.0 [facility] Comment on above: Performed By: #### C BCDF ####[address] [place], [place] [id number] Neutrophils (Bld) [#/Vol] 2.45 10*3/uL Normal 1.20 - 7.70 [facility] Comment on above: Performed By: #### C BCDF ####[address] [place], [place] [id number] Neutrophils/100 WBC (Bld) 65.3 % Normal 40.0 - 80.0 [facility] Comment on above: Performed By: #### C BCDF ####[address] [place], [place] [id number] Platelets (Bld) [#/Vol] 137 10*3/uL Low 150 - 450 [facility] Comment on above: Performed By: #### C BCDF ####[address] [place], [place] [id number] RBC 4.32 x10E12/L Low 4.50 - 5.90 [facility] Comment on above: Performed By: #### C BCDF ####[address] [place], [place] [id number] WBC (Bld) [#/Vol] 3.8 10*3/uL Low 4.4 - 11.3 [facility] Comment on above: Performed By: #### C BCDF ####[address] [place], [place] [id number] COMPREHENSIVE PANELon 2020 Albumin [Mass/Vol] 4.1 g/dL Normal 3.4 - 5.0 [facility] Comment on above: Performed By: #### U A #### [facility] [address] [facility] [place], [place] [id number] ALP [Catalytic activity/Vol] 48 U/L Normal 33 - 120 [facility] Comment on above: Performed By: #### U A #### [facility] [address] [facility] [place], [place] [phone] ALT [Catalytic activity/Vol] 15 U/L Normal 10 - 52 [facility] Comment on above: Result Comment: Yanni ents treated with Sulfasalazine may generate falsely decreased results for ALT. Performed By: #### U A #### [address] [place], [place] [phone] Anion gap [Moles/Vol] 12 mmol/L Normal 10 - 20 [facility] Comment on above: Performed By: #### U A #### [facility] [id number] [place] [address] [place] [id number] AST [Catalytic activity/Vol] 15 U/L Normal 9 - 39 [facility] Comment on above: Performed By: #### U A #### [facility] [address] [facility] [place], [place] [phone] Bilirubin [Mass/Vol] 0.4 mg/dL Normal 0.0 - 1.2 [facility] Comment on above: Performed By: #### U A #### [place] [id number] [facility] [place], [place] [id number] Calcium [Mass/Vol] 8.9 mg/dL Normal 8.6 - 10.3 [facility] Comment on above: Performed By: #### U A #### [facility] [address] [facility] [place], [place] [phone] Chloride [Moles/Vol] 103 mmol/L Normal 98 - 107 [facility] Comment on above: Performed By: #### U A #### [facility] [address] [place] [address] [place] [phone] Creatinine [Mass/Vol] 1.08 mg/dL Normal 0.50 - 1.30 [facility] Comment on above: Performed By: #### U A #### [facility] [address] [facility] [place], [place] [phone] GFR- AM. >60 Normal >60 [facility] Comment on above: Result Comment: CALC ULATIONS OF ESTIMATED GFR ARE PERFORMED USING THE MDRD STUDY EQUATION FOR THE IDMS-TRACEABLE CREATININE METHODS. CLIN CHEM 2007;53:766-72 Performed By: #### U A #### [facility] [address] [facility] [place], [place] [phone] GFR-NON AM. >60 Normal >60 [facility] Comment on above: Performed By: #### U A #### [facility] [address] [facility] [place], [place] [id number] Glucose [Mass/Vol] 119 mg/dL High 74 - 99 [facility] Comment on above: Performed By: #### U A #### [facility] [address] [facility] [place], [place] [phone] HCO3 (Bld) [Moles/Vol] 27 mmol/L Normal 21 - 32 [facility] Comment on above: Performed By: #### U A #### [place] [id number] [facility] [place], [place] [phone] Potassium [Moles/Vol] 4.1 mmol/L Normal 3.5 - 5.3 [facility] Comment on above: Performed By: #### U A #### [facility] [address] [facility] [place], [place] [phone] Protein [Mass/Vol] 6.4 g/dL Normal 6.4 - 8.2 [facility] Comment on above: Performed By: #### U A #### [facility] [address] [facility] [place], [place] [id number] Sodium [Moles/Vol] 138 mmol/L Normal 136 - 145 [facility] Comment on above: Performed By: #### U A #### [facility] [address] [place], [place] [phone] Urea nitrogen [Mass/Vol] 14 mg/dL Normal 6 - 23 [facility] Comment on above: Performed By: #### U A #### [facility] [address] [place], [place] [phone] CT ABDOMEN AND PELVIS WO CON TRASTon 08-10-2021 CT ABDOMEN AND PELVIS WO CONTRAST Patient Name: HOSEA ALVAREZ STUDY: CT ABDOMEN AND PELVIS WO CONTRAST; 08/10/2021 4:47 pm INDICATION: flank pain . COMPARISON: None ACCESSION NUMBER(S): [id number] ORDERING CLINICIAN: DJEAH LEPE TECHNIQUE: CT of the abdomen and [...] Electronically signed by: HOWARD MATTSON MD Normal [facility] CT Abdomen and Pelvis withou t Contraston 08-10-2021 CT Abdomen and Pelvis WO contrast Normal [facility]-José Miguel mathews [employer] Work Phone: Complete Blood Count + Diffe rentialon 08-10-2021 Basophils/100 WBC (Bld) 0.5 % 0.0 - 2.0 [facility]-Backchatkatelynn mathews [employer] Work Phone: Erythrocyte distribution width (RBC) [Ratio] [...] U/L 33 - 120 [facility] [employer] Work Phone: [phone] ALT With P-5'-P [Catalytic activity/Vol] 15 U/L 10 - 52 [facility] [employer] Work Phone: [phone] Comment on above: Patients treated wit h Sulfasalazine may generate falsely decreased results for ALT. Anion gap [Moles/Vol] 12 mmol/L 10 - 20 [facility] [employer] Work Phone: [phone] AST With P-5'-P [Catalytic activity/Vol] 15 U/L 9 - 39 [facility] [employer] Work Phone: [phone] Bilirubin [Mass/Vol] 0.4 mg/dL 0.0 - 1.2 [facility] [employer] Work Phone: [phone] Calcium [Mass/Vol] 8.9 mg/dL 8.6 - 10.3 [facility] [employer] Work Phone: [phone] Chloride [Moles/Vol] 103 mmol/L 98 - 107 [facility] [employer] Work Phone: [phone] CO2 [Moles/Vol] 27 mmol/L 21 - 32 [facility] [employer] Work Phone: [phone] Creatinine [Mass/Vol] 1.08 mg/dL See Below [facility] [employer] Work Phone: [phone] Comment on above: Reference Range: 0.5 0 - 1.30 Glucose [Mass/Vol] 119 mg/dL above high threshold 74 - 99 [facility] [employer] Work Phone: [phone] Potassium [Moles/Vol] 4.1 mmol/L 3.5 - 5.3 [facility] [employer] Work Phone: [phone] Protein [Mass/Vol] 6.4 g/dL 6.4 - 8.2 [facility] [employer] Work Phone: Sodium [Moles/Vol] 138 mmol/L 136 [...] embolism Code: (more content not included)... Normal [facility] Risk Screen - Adult Emergenc yon 08-10-2021 [...] instruction; written material Cultural Considerationsnone Developmental Considerationsnone Presybeterian Considerationsnone Learning Assessment (Other Learner): Learning Assessment (Other Learner): Other learner availableno Pressure Injury/TB/Substance: Pressure Injury: Do you have a coughno Smoking Statusformer smoker Alcohol Usedaily Drug Usedenies Admission Risk Screen: Significant IndicatorsComplete CAGE: CAGE: Is this an injured patient at a Trauma Center ([facility]/[place] /[place]): no Electronic Signatures: Sherry Howe) (Signed 10-Aug-2021 16:28) Authored: Preferred Language, Advanced Directives, Family Violence Adult, Learning Assessment (Patient), Learning Assessment (Other Learner), Pressure Injury/TB/Substance, Pressure Injury, CAGE Last Updated: 10-Aug-2021 16:28 by Sherry Howe (RN) [facility] Triage - EDon 08-10-2021 Triage - ED [...] BMI (kg/m2): 31.541 Calculated BSA (m2) 2.03 [place] Coma Scale: Best Eye Response: (E4) spontaneous Best Motor Response: (M6) obeys commands Best Verbal Response: (V5) oriented Oakwood Score: 15 Cough lasting greater than 3 [...] 10-Aug-2021 16:26 by Sherry Howe (RN) Normal [facility] URINALYSISon 08-10-2021 Appearance (U) CLEAR Normal CLEAR [facility] Comment on above: Performed By: #### C BCDF #### [facility] [address] [facility], [place] [phone] Bilirubin Ql (U) Negative Normal NEGATIVE [facility] Comment on above: Performed By: #### C BCDF #### [place] [id number] [facility], [place] [id number] Color (U) YELLOW Normal STRAW,YELLOW [facility] Comment on above: Performed By: #### C BCDF #### [facility] [address] [facility], [place] [phone] Glucose Ql (U) Negative Normal NEGATIVE [facility] Comment on above: Performed By: #### C BCDF #### [facility] [address] [facility], [place] [phone] Hemoglobin Ql (U) Negative Normal NEGATIVE Sara onal [facility] Comment on above: Performed By: #### C BCDF #### [place] [id number] [facility], [place] [phone] Ketones Ql (U) Negative Normal NEGATIVE [facility] Comment on above: Performed By: #### C BCDF #### [place] [id number] [facility], [place] [phone] Leukocyte esterase Test strip Ql (U) Negative Normal NEGATIVE [facility] Comment on above: Performed By: #### C BCDF #### [facility] [address] [facility], [place] [phone] Nitrite Ql (U) Negative Normal NEGATIVE [facility] Comment on above: Performed By: #### C BCDF #### [facility] [address] [facility], [place] [phone] pH (U) 5.0 [pH] Normal 5.0 - 8.0 [facility] Comment on above: Performed By: #### C BCDF #### [facility] [address] [facility], [place] [phone] Protein Ql (U) Negative Normal NEGATIVE [facility] Comment on above: Performed By: #### C BCDF #### [facility] [address] [facility], [place] [phone] Specific gravity (U) [Rel density] 1.020 Normal 1.005 - 1.035 [facility] Comment on above: Performed By: #### C BCDF #### [facility] [address] [facility], [place] [phone] Urobilinogen (U) [Mass/Vol] mg/dL Normal 0.0 - 1.9 [facility] Comment on above: Performed By: #### C BCDF #### [facility] [address] [facility], [place] [phone] Urinalysison 08-10-2021 Color (U) YELLOW See Below [facility] [employer] Work Phone: Comment on above: Reference Range: STR AW,YELLOW Glucose Ql (U) Negative NEGATIVE [facility] [address] Work Phone: Ketones Ql (U) [...] Work Phone: VASC LAB Arterial Duplex t [facility] 08-02-2021 VASC LAB Arterial Duplex Ultrasound [place] [address] and Vascular Lab Report Upper Arterial Duplex Ultrasound Patient Name: HOSEA ALVAREZ Reading Physician: VERONICA Melgar MD Study Date: 08/02/2021 Referring Physician: [id number] MESSINA MRN/PID: [id number] PCP: Accession/Order#: [id number] CC Report to: Date of : 1970 Technologist: Lily Zuniga [facility] Gender: M Technologist 2: Admission Status: Outpatient Location Performed: [facility] 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 Triphasic flow noted throughout. Additional Findings: Imaging AND Doppler Findings: Left PSV Waveform Radial 71 cm/s Triphasic Left Radial Diam P 2.7 mm Radial Diam M 3.1 mm Radial Diam D 2.5 mm [id number] Dill MD Final Normal [facility] VAS LAB Arterial Duplex Ultrasound Please click [...] Jul 31 2021 3:34PM EST (Author) Normal [employer] [facility] - Microbiology an d Antimicrobial susceptibilityon 07-28-2021 FLUAV RNA TATI+probe Ql (Nph) FLU A by PCR NEGATIVE (Reference Range: not available) [facility] FLUBV RNA TATI+probe Ql (Nph) FLU B by PCR NEGATIVE (Reference Range: not available) [facility] SARS-CoV-2 (COVID-19) RNA TATI+probe Ql (Unsp spec) SARS-CoV-2 by PCR NEGATIVE (NEG ) [facility] TROPONIN Ion 07-15-2021 Troponin I.cardiac [Mass/Vol] ng/mL Normal 0.00 - 0.03 [facility] Comment on above: Result Comment: LESS THAN [...] is performed using different testing methodology at [facility] than at other [facility] [place] [facility]. Direct result comparisons should only be made within the same method. Performed By: #### T ROP2 ####[facility] [place] [phone] CBC AND DIFFERENTIALon 07-14 % AUTOMATED IMMATURE GRAN 0.3 % Normal 0.0 - 0.9 [facility] Comment on above: Result Comment: Kath ture Granulocyte Count (IG) includes promyelocytes, myelocytes and metamyelocytes but does not include bands. Percent differential counts (%) should be interpreted in the context of the absolute cell counts (cells/L). Performed By: #### C BCDF ####[facility] [place] [phone] Basophils (Bld) [#/Vol] 0.02 10*3/uL Normal 0.00 - 0.10 [facility] Comment on above: Performed By: #### C BCDF ####[address] [id number] Basophils/100 WBC (Bld) 0.5 % Normal 0.0 - 2.0 [facility] Comment on above: Performed By: #### C BCDF ####[facility] [facility] [place], [place] [phone] Eosinophils (Bld) [#/Vol] 0.08 10*3/uL Normal 0.00 - 0.70 [facility] Comment on above: Performed By: #### C BCDF ####[facility] [facility] [place], [place] [phone] Eosinophils/100 WBC (Bld) 2.2 % Normal 0.0 - 6.0 [facility] Comment on above: Performed By: #### C BCDF ####[facility] [facility] [place], [place] [phone] Erythrocyte distribution width (RBC) [Ratio] 13.0 % Normal 11.5 - 14.5 [facility] Comment on above: Performed By: #### C BCDF ####[address] [place], [place] [phone] Hematocrit (Bld) [Volume fraction] 35.3 % Low 41.0 - 52.0 [facility] Comment on above: Performed By: #### C BCDF ####[place] [id number] [facility] [place], [place] [phone] Hemoglobin (Bld) [Mass/Vol] 12.1 g/dL Low 13.5 - 17.5 [facility] Comment on above: Performed By: #### C BCDF ####[place] [id number] [facility] [place], [place] [phone] Lymphocytes (Bld) [#/Vol] 0.88 10*3/uL Low 1.20 - 4.80 [facility] Comment on above: Performed By: #### C BCDF ####[place] [id number] [facility] [place], [place] [phone] Lymphocytes/100 WBC (Bld) 23.8 % Normal 13.0 - 44.0 [facility] Comment on above: Performed By: #### C BCDF ####[facility] [facility] [place], [place] [phone] MCHC (RBC) [Mass/Vol] 34.3 g/dL Normal 32.0 - 36.0 [facility] Comment on above: Performed By: #### C BCDF ####[place] [id number] [facility] [phone] MCV (RBC) [Entitic vol] 83 fL Normal 80 - 100 [facility] Comment on above: Performed By: #### C BCDF ####[address], [place] [phone] Monocytes (Bld) [#/Vol] 0.34 10*3/uL Normal 0.10 - 1.00 [facility] Comment on above: Performed By: #### C BCDF ####[address], [place] [phone] Monocytes/100 WBC (Bld) 9.2 % Normal 2.0 - 10.0 [facility] Comment on above: Performed By: #### C BCDF ####[address], [place] [phone] Neutrophils (Bld) [#/Vol] 2.36 10*3/uL Normal 1.20 - 7.70 [facility] Comment on above: Performed By: #### C BCDF ####[address], [place] [phone] Neutrophils/100 WBC (Bld) 64.0 % Normal 40.0 - 80.0 [facility] Comment on above: Performed By: #### C BCDF ####[address], [place] [phone] Platelets (Bld) [#/Vol] 130 10*3/uL Low 150 - 450 [facility] Comment on above: Performed By: #### C BCDF ####[address] [place], [place] [phone] RBC 4.26 x10E12/L Low 4.50 - 5.90 [facility] Comment on above: Performed By: #### C BCDF ####[address] [place], [place] [phone] WBC (Bld) [#/Vol] 3.7 10*3/uL Low 4.4 - 11.3 [facility] Comment on above: Performed By: #### C BCDF ####[facility] [facility] [place] [phone] CHEST 1 VIEWon 07-14-2021 CHEST 1 VIEW Patient Name: HOSEA ALVAREZ STUDY: CHEST 1 VIEW; 07/14/2021 8:34 pm INDICATION: Chest Pain . COMPARISON: 07/10/2021 ACCESSION NUMBER(S): [id number] ORDERING CLINICIAN: SAM AQUINO FINDINGS: The cardiomediastinal silhouette and pulmonary vasculature are within normal limits. No consolidation, pleural effusion or pneumothorax. IMPRESSION: No acute cardiopulmonary process. Electronically signed by: ROBINA NIELSEN MD Normal [facility] COMPREHENSIVE PANELon 2020 Albumin [Mass/Vol] 3.9 g/dL Normal 3.4 - 5.0 [facility] Comment on above: Performed By: #### C BCDF #### [facility] [address] [facility], [place] [phone] ALP [Catalytic activity/Vol] 50 U/L Normal 33 - 120 [facility] Comment on above: Performed By: #### C BCDF #### [facility] [address] [facility], [place] [phone] ALT [Catalytic activity/Vol] 21 U/L Normal 10 - 52 [facility] Comment on above: Result Comment: Yanni ents treated with Sulfasalazine may generate falsely decreased results for ALT. Performed By: #### C BCDF #### [facility] [address] [facility], [place] [phone] Anion gap [Moles/Vol] 15 mmol/L Normal 10 - 20 [facility] Comment on above: Performed By: #### C BCDF #### [facility] [address] [facility], [place] [phone] AST [Catalytic activity/Vol] 16 U/L Normal 9 - 39 [facility] Comment on above: Performed By: #### C BCDF #### [facility] [address] [facility] [place], [place] [phone] Bilirubin [Mass/Vol] 0.3 mg/dL Normal 0.0 - 1.2 [facility] Comment on above: Performed By: #### C BCDF #### [facility] [address] [facility] [place], [place] [phone] Calcium [Mass/Vol] 9.1 mg/dL Normal 8.6 - 10.3 [facility] Comment on above: Performed By: #### C BCDF #### [facility] [address] [facility] [place], [place] [phone] Chloride [Moles/Vol] 102 mmol/L Normal 98 - 107 [facility] Comment on above: Performed By: #### C BCDF #### [facility] [address] [facility] [place], [place] [phone] Creatinine [Mass/Vol] 1.03 mg/dL Normal 0.50 - 1.30 [facility] Comment on above: Performed By: #### C BCDF #### [facility] [address] [facility] [place], [place] [phone] GFR- AM. >60 Normal >60 [facility] Comment on above: Result Comment: CALC ULATIONS OF ESTIMATED GFR ARE PERFORMED USING THE MDRD STUDY EQUATION FOR THE IDMS-TRACEABLE CREATININE METHODS. CLIN CHEM 2007;53:766-72 Performed By: #### C BCDF #### [facility] [address] [facility] [place], [place] [phone] GFR-NON AM. >60 Normal >60 [facility] Comment on above: Performed By: #### C BCDF #### [facility] [address] [facility] [place], [place] [phone] Glucose [Mass/Vol] 102 mg/dL High 74 - 99 [facility] Comment on above: Performed By: #### C BCDF #### [facility] [address] [facility] [place], [place] [phone] HCO3 (Bld) [Moles/Vol] 25 mmol/L Normal 21 - 32 [facility] Comment on above: Performed By: #### C BCDF #### [facility] [address] [facility], [place] [phone] Potassium [Moles/Vol] 3.5 mmol/L Normal 3.5 - 5.3 [facility] Comment on above: Performed By: #### C BCDF #### [facility] [address] [facility] [place] [phone] Protein [Mass/Vol] 6.6 g/dL Normal 6.4 - 8.2 [facility] Comment on above: Performed By: #### C BCDF #### [facility] [address] [facility], [place] [phone] Sodium [Moles/Vol] 138 mmol/L Normal 136 - 145 [facility] Comment on above: Performed By: #### C BCDF #### [facility] [address] [facility], [place] [phone] Urea nitrogen [Mass/Vol] 17 mg/dL Normal 6 - 23 [facility] Comment on above: Performed By: #### C BCDF #### [facility] [address] [facility] [place] [phone] Complete Blood Count + Lorena conner 07-14-2021 Basophils/100 WBC (Bld) 0.5 % 0.0 - 2.0 [facility] [address] [facility] Work Phone: Erythrocyte distribution width (RBC) [Ratio] 13.0 % See Below [facility] [address] [facility] Work Phone: Comment on above: Reference Range: 11. 5 - 14.5 Hematocrit (Bld) [Volume fraction] 35.3 % below low threshold See Below [facility] [address] [facility] Work Phone: Comment on above: Reference Range: 41. 0 - 52.0 Hemoglobin (Bld) [Mass/Vol] 12.1 g/dL below low threshold See Below [facility] [address] [facility] Work Phone: Comment on above: Reference Range: 13. 5 - 17.5 Lymphocytes/100 WBC (Bld) 23.8 % See Below [facility] [address] [facility] Work Phone: Comment on above: Reference Range: 13. 0 - 44.0 MCHC (RBC) [Mass/Vol] 34.3 g/dL See Below [facility] [address] [facility] Work Phone: Comment on above: Reference Range: 32. 0 - 36.0 MCV (RBC) [Entitic vol] 83 fL 80 - 100 [facility] [address] [facility] Work Phone: Monocytes/100 WBC (Bld) 9.2 % 2.0 - 10.0 [facility] [address] [facility] Work Phone: Neutrophils/100 WBC (Bld) 64.0 % See Below [facility] [address] [facility] Work Phone: Comment on above: Reference Range: 40. 0 - 80.0 Platelets (Bld) [#/Vol] 130 10*3/uL below low threshold 150 - 450 [facility] [address] [facility] Work Phone: RBC (Bld) [#/Vol] 4.26 {x10E12/L} below low threshold See Below [facility] [address] [facility] Work Phone: Comment on above: Reference Range: 4.5 0 - 5.90 WBC (Bld) [#/Vol] 3.7 10*3/uL below low threshold 4.4 - 11.3 [facility] [address] [facility] Work Phone: Complete Blood Count + Differential 0.02 {x10E9/L} See Below [facility] [address] [facility] Work Phone: Comment on above: Reference Range: 0.0 0 - 0.10 Complete Blood Count + Differential 0.08 {x10E9/L} See Below [facility] [address] [facility] Work Phone: Comment on above: Reference Range: 0.0 0 - 0.70 Complete Blood Count + Differential 0.34 {x10E9/L} See Below [facility] Work Phone: Comment on above: Reference Range: 0.1 0 - 1.00 Complete Blood Count + Differential 0.88 {x10E9/L} below low threshold See Below [facility] [address] [facility] Work Phone: Comment on above: Reference Range: 1.2 0 - 4.80 Complete Blood Count + Differential 2.36 {x10E9/L} See Below [facility] [address] [facility] Work Phone: Comment on above: Reference Range: 1.2 0 - 7.70 Complete Blood Count + Differential 2.2 % 0.0 - 6.0 [place] [address] [facility] Work Phone: Complete Blood Count + Differential 0.3 % 0.0 - 0.[address] Work Phone: Comment on above: Immature Granulocyte Count (IG) includes promyelocytes, myelocytes and metamyelocytes but does not include bands. Percent differential counts (%) should be interpreted in the context of the absolute cell counts (cells/L). Laboratory - Chemistry and C hemistry - challengeon 07-14-2021 Albumin BCP dye [Mass/Vol] 3.9 g/dL 3.4 - 5.[address] Work Phone: ALP [Catalytic activity/Vol] 50 U/L 33 - 120 [facility] [address] [facility] Work Phone: ALT With P-5'-P [Catalytic activity/Vol] 21 U/L 10 - 52 [facility] [address] [facility] Work Phone: Comment on above: Patients treated wit h Sulfasalazine may generate falsely decreased results for ALT. Anion gap [Moles/Vol] 15 mmol/L 10 - 20 [facility] [address] [facility] Work Phone: AST With P-5'-P [Catalytic activity/Vol] 16 U/L 9 - 39 [facility] [address] [facility] Work Phone: [phone] Bilirubin [Mass/Vol] 0.3 mg/dL 0.0 - 1.2 [facility] [address] [facility] Work Phone: [phone] Calcium [Mass/Vol] 9.1 mg/dL 8.6 - 10.3 [facility] [address] Work Phone: [phone] Chloride [Moles/Vol] 102 mmol/L 98 - 107 [facility] [address] [facility] Work Phone: [phone] CO2 [Moles/Vol] 25 mmol/L 21 - 32 [facility] [address] [facility] Work Phone: [phone] Creatinine [Mass/Vol] 1.03 mg/dL See Below [facility] [address] [facility] Work Phone: [phone] Comment on above: Reference Range: 0.5 0 - 1.30 Glucose [Mass/Vol] 102 mg/dL above high threshold 74 - 99 [facility] [address] [facility] Work Phone: [phone] Potassium [Moles/Vol] 3.5 mmol/L 3.5 - 5.3 [facility] [address] [facility] Work Phone: [phone] Protein [Mass/Vol] 6.6 g/dL 6.4 - 8.2 [facility] [address] [facility] Work Phone: [phone] Sodium [Moles/Vol] 138 mmol/L 136 - 145 [facility] [address] [facility] Work Phone: [phone] Urea nitrogen [Mass/Vol] 17 mg/dL 6 - 23 [facility] [address] [facility] Work Phone: Anion gap [Moles/Vol] Anion Gap 13 MMOL/ L (0-19 MMOL/L) 0 - 19 MMOL/L S Calcium [Mass/Vol] Calcium 9.1 MG/DL (8.5-10.4 MG/DL) 8.5 - 10.4 MG/DL [facility] Chloride [Moles/Vol] Chloride 103 MMOL/L (97-107 MMOL/L) 97 - 107 MMOL/L [facility] CO2 [Moles/Vol] Carbon Dioxide 24 MM OL/L (24-31 MMOL/L) 24 - 31 MMOL/L [facility] Creatinine [Mass/Vol] Creatinine R 0.9 M G/DL (0.4-1.6 MG/DL) 0.4 - 1.6 MG/DL [facility] GFR/1.73 sq M.predicted MDRD (S/P/Bld) [Vol rate/Area] EGFR 95 mL/min/1.73 m2 (Reference Range: not available) GFR ml/min/1.73m2 Stage ----- 90 1 60-89 2 30-59 3 15-29 4 <15 5 For -Americans, multiply EGFR result by 1.210 Calculation not validated for patients under 18 years of age. Performed at [address] [address] [facility] Glucose [Mass/Vol] Glucose 94 MG/DL (65 -99 MG/DL) 65 - 99 MG/DL [facility] Potassium [Moles/Vol] Potassium R 4.4 MM OL/L (3.4-5.1 MMOL/L) 3.4 - 5.1 MMOL/L [facility] Sodium [Moles/Vol] Sodium 140 MMOL/L (133-145 MMOL/L) 133 - 145 MMOL/L [facility] Troponin T.cardiac [Mass/Vol] HS Troponin T,Gen 5 [...] until 8 hours following last biotin administration. [employer] Urea nitrogen [Mass/Vol] BUN 12 MG/DL (8-25 MG/DL) 8 - 25 MG/DL [employer] Urea nitrogen/Creatinine [Mass ratio] BUN Creatinine Ratio 13.3 RATIO (8-21 RATIO) 8 - 21 RATIO [employer] Laboratory - Hematology and Cell countson 07-14-2021 Basophils (Bld) [#/Vol] Abs Baso 0.02 K/UL (0.00-0.22 K/UL) 0.00 - 0.22 K/UL [employer] Basophils/100 WBC (Bld) Basophil 0.60 % (0-1 %) 0 - 1 % [employer] Differential cell count method Nom (Bld) Diff Type AUTO DIFF (Reference Range: not available) [facility] [employer] Eosinophils (Bld) [#/Vol] Abs Eos 0.09 K/UL (0-0.45 K/UL) 0 - 0.45 K/UL [employer] Eosinophils/100 WBC (Bld) Eosinophil 2.60 % (0-3 %) 0 - 3 % [employer] Erythrocyte distribution width (RBC) [Entitic vol] RDW SD 39.3 FL (37.0-54.0 FL) 37.0 - 54.0 FL [employer] Erythrocyte distribution width (RBC) [Ratio] RDW CV [...] 100 FL S Monocytes (Bld) [#/Vol] Abs Brown 0.41 K/UL (0-0.8 K/UL) 0 - 0.8 K/UL S Monocytes/100 WBC (Bld) Monocyte 11.70 % H (0-8 %) High 0 - 8 % [facility] Neutrophils (Bld) [#/Vol] Abs.Neut.Calculated 2.13 K/UL (Reference Range: not available) Performed at [address] [address] [facility] Neutrophils (Bld) [#/Vol] Abs Neut 2.13 K/UL (1.8-7.7 K/UL) 1.8 - 7.7 K/UL [facility] Neutrophils.immature/ 100 WBC (Bld) Immature Neut % 0.60 % (0.0-1.0 %) 0.0 - 1.0 % [facility] Nucleated RBC/100 WBC (Bld) [Ratio] NRBCs 0 /100 WBC (0 /100 WBC) [facility] Platelet mean volume (Bld) [Entitic vol] MPV 11.4 CU (7.0-12.6 CU) 7.0 - 12.6 CU [facility] Platelets (Bld) [#/Vol] PLT 144 K/UL L (150-450 K/UL) Low 150 - 450 K/UL [facility] RBC (Bld) [#/Vol] RBC 4.63 M/UL (4.5-5 .5 M/UL) 4.5 - 5.5 M/UL [facility] Segmented neutrophils/100 WBC (Bld) Granulocyte 60.60 % (50-70 %) 50 - 70 % [facility] WBC (Bld) [#/Vol] WBC 3.5 K/UL L (4.5- 11.0 K/UL) Low 4.5 - 11.0 K/UL [facility] No Panel Informationon 07-14 >60 >60 [facility] [address] [facility] Work Phone: Comment on above: CALCULATIONS OF NIKOLE MATED GFR ARE PERFORMED USING THE MDRD STUDY EQUATION FOR THE IDMS-TRACEABLE CREATININE METHODS. CLIN CHEM 2007;53:766-72 HS Troponin T Delta 0 (0-4 ) Performed at [address] [address] 0 - 4 [facility] Provider Note - ED v3on 06-24 Provider [...] SIGNS: T PRBP SpO2O2(LPM) %FiO2 Method 14-Jul-2021 20:23:[id number]/85 98 room air, no respiratory support MDM [...] the symptoms. He states he was at [facility] ER but the wait was too long [...] Genitourinary: Discharge, (more content not included)... Normal [facility] Radiologyon 07-14-2021 XR Chest Single view Normal [facility] [address] [place] [address] Ctr Work Phone: Risk Screen - Adult [...] Learning Preferencesverbal instruction Cultural Considerationsnone Developmental Considerationsnone Presybeterian Considerationsnone Learning Assessment (Other Learner): Learning Assessment (Other Learner): Other learner availableno Pressure Injury/TB/Substance: Pressure Injury: Pressure Injury Present on Admissionno Do you have a coughno Smoking Statusnever smoker Admission Risk Screen: Significant IndicatorsComplete CAGE: CAGE: Is this an injured patient at a Trauma Center ([facility]/[place] /[place]): no Electronic Signatures: Kasey Campos (RN) (Signed 14-Jul-2021 20:25) Authored: Preferred Language, Advanced Directives, Family Violence Adult, Learning Assessment (Patient), Learning Assessment (Other Learner), Pressure Injury/TB/Substance, Pressure Injury, CAGE Last Updated: 14-Jul-2021 20:25 by Kasey Campos ([place]) Normal [facility] TROPONIN Ion 07-14-2021 Troponin I.cardiac [Mass/Vol] ng/mL Normal 0.00 - 0.03 [facility] Comment on above: Result Comment: LESS THAN [...] is performed using different testing methodology at [facility] than at [facility]. Direct result comparisons should only be made within the same method. Performed By: #### T ROP2 ####[facility] [place], [place] [id number] Triage - EDon 07-14-2021 Triage - ED [...] BMI (kg/m2): 28.834 Calculated BSA (m2) 2.03 [place] Coma Scale: Best Eye Response: (E4) spontaneous Best Motor Response: (M6) obeys commands Best Verbal Response: (V5) oriented [place] Score: 15 Cough lasting greater than 3 [...] 14-Jul-2021 20:27 by Ema Tinoco (BROOK[place]NN) Normal [facility] Troponin I, Serumon 07-14-20 21 Troponin I.cardiac [Mass/Vol] ng/mL See Below [facility] [address] [facility] Work Phone: Comment on [...] is performed using different testing methodology at [facility] than at other system [facility]. Direct result comparisons should only be made within the same method. Troponin I.cardiac [Mass/Vol] ng/mL See Below [facility] [address] [facility] Work Phone: Comment on [...] is performed using different testing methodology at [facility] than at other system [facility]. Direct result comparisons should only be [...] until 8 hours following last biotin administration. [facility] Anion gap [Moles/Vol] Anion Gap 9 MMOL/L (0-19 MMOL/L) 0 - 19 MMOL/L S Calcium [Mass/Vol] Calcium 8.8 MG/DL (8.5-10.4 MG/DL) 8.5 - 10.4 MG/DL [facility] Chloride [Moles/Vol] Chloride 102 MMOL/L (97-107 MMOL/L) 97 - 107 MMOL/L [facility] CO2 [Moles/Vol] Carbon Dioxide 27 MM OL/L (24-31 MMOL/L) 24 - 31 MMOL/L [facility] Creatinine [Mass/Vol] Creatinine R 1.0 M G/DL (0.4-1.6 MG/DL) 0.4 - 1.6 MG/DL [facility] GFR/1.73 sq M.predicted MDRD (S/P/Bld) [Vol rate/Area] EGFR 84 mL/min/1.73 m2 (Reference Range: not available) GFR ml/min/1.73m2 Stage ----- 90 1 60-89 2 30-59 3 15-29 4 <15 5 For -Americans, multiply EGFR result by 1.210 Calculation not validated for patients under 18 years of age. Performed at [address] [address] [facility] Glucose [Mass/Vol] Glucose 94 MG/DL (65 -99 MG/DL) 65 - 99 MG/DL [facility] Potassium [Moles/Vol] Potassium R 4.0 MM OL/L (3.4-5.1 MMOL/L) 3.4 - 5.1 MMOL/L [facility] Sodium [Moles/Vol] Sodium 138 MMOL/L (133-145 MMOL/L) 133 - 145 MMOL/L [facility] Troponin T.cardiac [Mass/Vol] HS Troponin T,Gen 5 [...] until 8 hours following last biotin administration. [employer] Urea nitrogen [Mass/Vol] BUN 15 MG/DL (8-25 MG/DL) 8 - 25 MG/DL [employer] Urea nitrogen/Creatinine [Mass ratio] BUN Creatinine Ratio 15.0 RATIO (8-21 RATIO) 8 - 21 RATIO [employer] Laboratory - Hematology and Cell countson 07-11-2021 Basophils (Bld) [#/Vol] Abs Baso 0.01 K/UL (0.00-0.22 K/UL) 0.00 - 0.22 K/UL [employer] Basophils/100 WBC (Bld) Basophil 0.30 % (0-1 %) 0 - 1 % [facility] [employer] Differential cell count method Nom (Bld) Diff Type AUTO DIFF (Reference Range: not available) [facility] [employer] Eosinophils (Bld) [#/Vol] Abs Eos 0.06 K/UL (0-0.45 K/UL) 0 - 0.45 K/UL [facility] [employer] Eosinophils/100 WBC (Bld) Eosinophil 1.80 % (0-3 %) 0 - 3 % [facility] [employer] Erythrocyte distribution width (RBC) [Entitic vol] RDW SD 39.7 FL (37.0-54.0 FL) 37.0 - 54.0 FL [facility] [employer] Erythrocyte distribution width (RBC) [Ratio] RDW CV 12.8 % (11.7-15.0 %) 11.7 - 15.0 % [employer] Hematocrit (Bld) [Volume fraction] HCT 37.4 % [...] WITH AUTOMATED DIFFERENTIAL (Reference Range: not available) [facility] Lymphocytes (Bld) [#/Vol] Abs Lymph 0.82 K/UL L (1.2-3.2 K/UL) Low 1.2 - 3.2 K/UL [facility] Lymphocytes/100 WBC (Bld) Lymphocyte 24.80 % (20-40 %) 20 - 40 % S MCH (RBC) [Entitic mass] MCH 28.4 PG (26-34 PG) 26 - 34 PG S MCHC (RBC) [Mass/Vol] MCHC 33.2 % (31-37 %) 31 - 37 % [facility] MCV (RBC) [Entitic vol] MCV 85.6 FL (80-100 FL) 80 - 100 FL [facility] Monocytes (Bld) [#/Vol] Abs Brown 0.36 K/UL (0-0.8 K/UL) 0 - 0.8 K/UL [facility] Monocytes/100 WBC (Bld) Monocyte 10.90 % H (0-8 %) High 0 - 8 % [facility] Neutrophils (Bld) [#/Vol] Abs.Neut.Calculated 2.04 K/UL (Reference Range: not available) Performed at [facility] [address] [place] [id number] [facility] Neutrophils (Bld) [#/Vol] Abs Neut 2.04 K/UL (1.8-7.7 K/UL) 1.8 - 7.7 K/UL [facility] Neutrophils.immature/ 100 WBC (Bld) Immature Neut % 0.30 % (0.0-1.0 %) 0.0 - 1.0 % [facility] Nucleated RBC/100 WBC (Bld) [Ratio] NRBCs 0 /100 WBC (0 /100 WBC) [facility] Platelet mean volume (Bld) [Entitic vol] MPV 11.2 CU (7.0-12.6 CU) 7.0 - 12.6 CU [facility] Platelets (Bld) [#/Vol] PLT 140 K/UL L (150-450 K/UL) SAMPLE INTEGRITY CHECKED RESULT CHECKED CONSISTENT WITH PREVIOUS RESULT Low 150 - 450 K/UL [facility] Platelets LM Ql (Bld) Platelet Estimate CONSISTENT WITH REPORTED RESULTS (Reference Range: not available) [facility] RBC (Bld) [#/Vol] RBC 4.37 M/UL L (4.5 -5.5 M/UL) Low 4.5 - 5.5 M/UL [facility] RBC morphology finding Nom (Bld) RBC Morphology CONSISTENT WITH REPORTED RESULTS (Reference Range: not available) [facility] Segmented neutrophils/100 WBC (Bld) Granulocyte 61.90 % (50-70 %) 50 - 70 % [facility] WBC (Bld) [#/Vol] WBC 3.2 K/UL L (4.5- 11.0 K/UL) Low 4.5 - 11.0 K/UL [facility] Laboratory - Microbiology an d Antimicrobial susceptibilityon 10-19-2021 FLUAV RNA TATI+probe Ql (Nph) FLU A by PCR NEGATIVE (Reference Range: not available) [facility] FLUBV RNA TATI+probe Ql (Nph) FLU B by PCR NEGATIVE (Reference Range: not available) [facility] SARS-CoV-2 (COVID-19) RNA TATI+probe Ql (Unsp spec) SARS-CoV-2 by PCR NEGATIVE (NEG ) [facility] No Panel Informationon 07-11 HS Troponin T Delta 0 (0-4 ) Performed at [address] [address] 0 - 4 [facility] XR Chest 2 Views (PA and lat) (Reference Range: not available) *FINAL Date of Service: 07/11/2021 19:22 Adm #: [id number] Reading Dr:GALA DIA Signoff Dr: GALA DIA PROCEDURE: CHEST 2 VIEW - IXR 0020 REASON FOR EXAM: Chest Pain RESULT: CLINICAL HISTORY: Chest pain TECHNIQUE: 2 views of the chest were performed. FINDINGS: Cardiac silhouette: Normal. Mediastinum: Unremarkable. Pulmonary vascularity: Normal. Lungs: No infiltrates. Pleura: No effusion.. Bony structures: Unremarkable. IMPRESSION: No acute abnormalities. [id number] This report has been produced using speech recognition. Original Interpreting Physician: GALA DIA MD Original Transcribed [facility]/Date[facility] Jul 11 2021 8:18P Original Electronically Signed by/Date: GALA DIA MD Jul 11 2021 8:18P Addendum Interpreting Physician: Addendum Transcribed by/Date: NO ADDENDUM Addendum Electronically Signed by/Date: [facility] HS Troponin T Delta 0 (0-4 ) Performed at [address] [address] 0 - 4 [facility] CHEST 2 VIEW PA AND LATon CHEST 2 VIEW PA AND LAT Patient Name: HOSEA ALVAREZ STUDY: TH CHEST 2 VIEW PA AND LAT; 07/10/2021 3:28 pm INDICATION: middle back pain, hx gerd, htn, thorasic aneurysm R07.9: Chest pain M54.9: Acute back pain. COMPARISON: None. ACCESSION NUMBER(S): [id number] ORDERING CLINICIAN: REYNA RICH FINDINGS: CHEST PA, LATERAL CARDIOMEDIASTINAL SILHOUETTE: Cardiomediastinal silhouette is normal in size and configuration. Tortuosity of the descending thoracic aorta is seen. LUNGS: Lungs are clear. ABDOMEN: No remarkable upper abdominal findings. BONES: No acute osseous changes. IMPRESSION: 1. No evidence of acute cardiopulmonary process. No change from 07/04/2021. Electronically signed by: BREANA BERMUDEZ MD Normal [facility] Office Visit (Urgent Care)on 07-10-2021 Follow-up visit Diagnoses/Problems Assessed Former smoker (V15.82) (Z87.891) Chest pain (786.50) (R07.9) Acute back pain (724.5) (M54.9) Orders Acute back pain Electrocardiogram EKG; Status:Complete; Done: 10Jul2021 Perform:[facility]; Due:08Oct2021; Last Updated By:Silvina Edgar; 07/10/2021 3:05:55 [...] Tylenol as needed. Patient should see his expressive art therapist Dr. Beckford tomorrow. If chest pain worsens [...] alcohol abuse, pulmonary embolism presents to [facility] urgent care for 8/10 left scapular pain. Pain started about 1 hour ago. It has only been in the back. No chest pain, shortness of breath, arm, jaw or shoulder pain, vision changes, fatigue, dyspnea on exertion, headache. He went to [facility] today for evaluation but states his wait time exceeded his expectations to he left and came here to urgent care. PMHx includes he was admitted for chest pain 07-05 at [facility]. He had some increased troponin elevation [...] up has appointment with Dr. Beckford, his expressive art therapist tomorrow. Active Problems Problems Acute back pain [...] Oral Solution (more content not included)... Normal [employer] Radiologyon 07-10-2021 XR Chest 2 Views Normal [facility] Work Phone: Tobacco Screening.on 021 Fall risk assessment a) No falls within the last year [facility] Work Phone: Tobacco use status [facility]PH[facility] b) No [facility] Work Phone: BASIC METABOLIC PANELon 06-23 ANION GAP Canceled Normal [facility] Comment on above: Order Comment: TEST TROPONIN I WAS CANCELLED, 02/27/2021 14:30 discharged. Performed By: #### T ROP2 #### [facility] [address] [place] [address] BICARBONATE Canceled Normal [facility] Comment on above: Order Comment: TEST TROPONIN I WAS CANCELLED, 02/27/2021 14:30 discharged. Performed By: #### T ROP2 #### [facility] [address] [place] [address] CALCIUM Canceled Normal [facility] Comment on above: Order Comment: TEST TROPONIN I WAS CANCELLED, 02/27/2021 14:30 discharged. Performed By: #### T ROP2 #### [facility] [address] [place] [address] CHLORIDE Canceled Normal [facility] Comment on above: Order Comment: TEST TROPONIN I WAS CANCELLED, 02/27/2021 14:30 discharged. Performed By: #### T ROP2 #### [facility] [id number] [place] [address] CREATININE Canceled Normal [facility] Comment on above: Order Comment: TEST TROPONIN I WAS CANCELLED, 02/27/2021 14:30 discharged. Performed By: #### T ROP2 #### [facility] [address] [place] [address] GFR- AM. Canceled Normal [facility] Comment on above: Order Comment: TEST TROPONIN I WAS CANCELLED, 02/27/2021 14:30 discharged. Result Comment: CALC ULATIONS OF ESTIMATED GFR ARE PERFORMED USING THE MDRD STUDY EQUATION FOR THE IDMS-TRACEABLE CREATININE METHODS. CLIN CHEM 2007;53:766-72 Performed By: #### T ROP2 #### [facility] [address] [place] [address] GFR-NON AM. Canceled Normal [facility] Comment on above: Order Comment: TEST TROPONIN I WAS CANCELLED, 02/27/2021 14:30 discharged. Performed By: #### T ROP2 #### [facility] [address] [place] [address] GLUCOSE Canceled Normal [facility] Comment on above: Order Comment: TEST TROPONIN I WAS CANCELLED, 02/27/2021 14:30 discharged. Performed By: #### T ROP2 #### [facility] [address] [place] [address] POTASSIUM Canceled Normal [facility] Comment on above: Order Comment: TEST TROPONIN I WAS CANCELLED, 02/27/2021 14:30 discharged. Performed By: #### T ROP2 #### [facility] [id number] [place] [address], [place] [address] SODIUM Canceled Normal [facility] Comment on above: Order Comment: TEST TROPONIN I WAS CANCELLED, 02/27/2021 14:30 discharged. Performed By: #### T ROP2 #### [facility] [id number] [place] [address], [place] [address] UREA NITROGEN Canceled Normal [facility] Comment on above: Order Comment: TEST TROPONIN I WAS CANCELLED, 02/27/2021 14:30 discharged. Performed By: #### T ROP2 #### [facility] [address] [place] [address] CBCon 07-06-2021 HCT Canceled Normal [facility] Comment on above: Order Comment: TEST CBC WAS CANCELLED, 07/06/2021 02:11 Performed By: #### C BC #### [facility] [address] [place] [address] HGB Canceled Normal [facility] Comment on above: Order Comment: TEST CBC WAS CANCELLED, 07/06/2021 02:11 Performed By: #### C BC #### [facility] [address] [place] [address] MCHC Canceled Normal [facility] Comment on above: Order Comment: TEST CBC WAS CANCELLED, 07/06/2021 02:11 Performed By: #### C BC #### [facility] [address] [place] [address] MCV Canceled Normal [facility] Comment on above: Order Comment: TEST CBC WAS CANCELLED, 07/06/2021 02:11 Performed By: #### C BC #### [facility] [address] [place] [address] NUCLEATED RBC Canceled Normal [facility] Comment on above: Order Comment: TEST CBC WAS CANCELLED, 07/06/2021 02:11 Performed By: #### C BC #### [facility] [address] [place] [address] PLT Canceled Normal [facility] Comment on above: Order Comment: TEST CBC WAS CANCELLED, 07/06/2021 02:11 Performed By: #### C BC #### [facility] [address] [place] [address] RBC Canceled Normal [facility] Comment on above: Order Comment: TEST CBC WAS CANCELLED, 07/06/2021 02:11 Performed By: #### C BC #### [facility] [address] [place] [address] RDW-CV Canceled Normal [facility] Comment on above: Order Comment: TEST CBC WAS CANCELLED, 07/06/2021 02:11 Performed By: #### C BC #### [facility] [address] [place] [address] WBC Canceled Normal [facility] Comment on above: Order Comment: TEST CBC WAS CANCELLED, 07/06/2021 02:11 Performed By: #### C BC #### [facility] [address] [place] [address] Admission Risk Screen - Adul ton 07-05-2021 [...] Learning Preferencesverbal instruction Cultural Considerationsnone Developmental Considerationsnone Presybeterian Considerationsreligious considerations [facility] Learning Assessment (Other Learner): Other learner availableno Depression Screen: During the past month, have you often been bothered by feeling down, depressed or hopelessno During the past month, have you often had little interest or pleasure in doing thingsno Have you had any thoughts of harming anyone elseno [place] Suicide: Risk Screen Not Applicable/Able to Answerable to be screened In the Past Month: Have you wished you were or could go to sleep and not wake upno In the Past Month: Have you had any actual thoughts of killing yourselfno Lifetime: Have you ever done, started to do, or prepared to do anything to end your lifeno [place] Suicide Risknegative Adult Nutrition Screen: Have you [...] Spiritual Screen: Are there any cultural, spiritual, quaker practices/values/needs that are important for us to knowno CAGE: Is this an injured patient at a Trauma Center ([facility]/[place] /[place]): no Vaccinations: Vaccination - Influenza Vaccination Screen: Is it flu season (between and December 21)Yes Screening for identified contraindications to (more content not included)... Normal [facility] BASIC METABOLIC PANELon 10-1 Anion gap [Moles/Vol] 12 mmol/L Normal 10 - 20 [facility] Comment on above: Performed By: #### T ROP2 #### [facility] [address] [place] [address] Calcium [Mass/Vol] 9.0 mg/dL Normal 8.6 - 10.3 [facility] Comment on above: Performed By: #### T ROP2 #### [facility] [address] [place] [address] Chloride [Moles/Vol] 102 mmol/L Normal 98 - 107 [facility] Comment on above: Performed By: #### T ROP2 #### [facility] [address] [place] [address] Creatinine [Mass/Vol] 0.93 mg/dL Normal 0.50 - 1.30 [facility] Comment on above: Performed By: #### T ROP2 #### [facility] [address] [place] [address] GFR- AM. >60 Normal >60 [facility] Comment on above: Result Comment: CALC ULATIONS OF ESTIMATED GFR ARE PERFORMED USING THE MDRD STUDY EQUATION FOR THE IDMS-TRACEABLE CREATININE METHODS. CLIN CHEM 2007;53:766-72 Performed By: #### T ROP2 #### [facility] [address] [place] [address] GFR-NON AM. >60 Normal >60 [facility] Comment on above: Performed By: #### T ROP2 #### [facility] [address] [place] [address] Glucose [Mass/Vol] 109 mg/dL High 74 - 99 [facility] Comment on above: Performed By: #### T ROP2 #### [facility] [address] [place] [address] HCO3 (Bld) [Moles/Vol] 27 mmol/L Normal 21 - 32 [facility] Comment on above: Performed By: #### T ROP2 #### [facility] [address] [place] [address] Potassium [Moles/Vol] 4.1 mmol/L Normal 3.5 - 5.3 [facility] Comment on above: Performed By: #### T ROP2 #### [facility] [address] [place] [address] Sodium [Moles/Vol] 137 mmol/L Normal 136 - 145 [facility] Comment on above: Performed By: #### T ROP2 #### [facility] [address] [place] [address] Urea nitrogen [Mass/Vol] 17 mg/dL Normal 6 - 23 [facility] Comment on above: Performed By: #### T ROP2 #### [facility] [address] [place] [address] CBCon 07-05-2021 Erythrocyte distribution width (RBC) [Ratio] 12.9 % Normal 11.5 - 14.5 [facility] Comment on above: Performed By: #### C BC #### [facility] [address] [place] [address] Hematocrit (Bld) [Volume fraction] 41.1 % Normal 41.0 - 52.0 [facility] Comment on above: Performed By: #### C BC #### [facility] [address] [place] [address] Hemoglobin (Bld) [Mass/Vol] 13.3 g/dL Low 13.5 - 17.5 [facility] Comment on above: Performed By: #### C BC #### [facility] [address] [place] [address] MCHC (RBC) [Mass/Vol] 32.4 g/dL Normal 32.0 - 36.0 [facility] Comment on above: Performed By: #### C BC #### [facility] [address] [place] [address] MCV (RBC) [Entitic vol] 87 fL Normal 80 - 100 [facility] Comment on above: Performed By: #### C BC #### [facility] [address] [place] [address] Platelets (Bld) [#/Vol] 137 10*3/uL Low 150 - 450 [facility] Comment on above: Performed By: #### C BC #### [facility] [address] [place] [address] RBC 4.74 x10E12/L Normal 4.50 - 5.90 [facility] Comment on above: Performed By: #### C BC #### [facility] [address] [place] [address] WBC (Bld) [#/Vol] 3.0 10*3/uL Low 4.4 - 11.3 [facility] Comment on above: Performed By: #### C BC #### [facility] [address] [place] [address] Consult-Cardiologyon 021 Consult-Cardiology Service: Service: Cardiology Consult: [...] in this area as well as in [facility] where he has family as well. [...] done next week with Dr. Lott at [facility]. Has been dismissed from other Cardiology practice d/t noncompliance, refusal to complete testing/noncompliant with medications as well as profane behavior toward staff/other patients in the waiting room. Also states he has an appointment with a expressive art therapist at [facility] [place] (Dr. Mojica) as a new patient next [...] GI Upset Objective: Objective Information: T PRBPSpO2 Value36.88088701/8695% Date/Time07/05 5: 5: 5: 8: 5:16 Range(36.6C [...] a day (more content not included)... Normal [facility] Discharge Planning [id number] 1 Discharge Planning Note2 Discharge Planning: Needs Prior to Discharge (ex. Home Care Orders, IV/O2 prescriptions) none Discharge Barriersmedical Planned Dispositionhome Discharge Destinationhome Discharge Transportation Needed from [facility] Anticipated Discharge [id number] Discharge Planning 07/05/21 1227: Transitional Care Coordinating [...] Christine Carpio RN-TCC Assessment: Discharge Planning Assessment [id number] Discharge Planning Assessment Completed byChristine Carpio RN-TCC Lives Withalone(1) Living Arrangementsapartment(1) Stated Reason for Admissionchest pressure (1) [place] PCPDr. Viral Amado Resource/Environmental Concernsnone(1) Anticipated Transition [place](1) Services Anticipated at Transitionnone(1) [place] Anticipated Discharge Facility/Level of Care NeedsHome Medication Adherence/Afford/Obtainy es Electronic Signatures: Christine Carpio (RN) (Signed 05-Jul-2021 12:32) Authored: Discharge Planning, Assessment Last Updated: 05-Jul-2021 12:32 by Christine Carpio (RN) References: 1. Data Referenced From Patient Profile - Adult v2 05-Jul-2021 01:53 Normal [facility] Discharge [id number] 021 Discharge Profile2 Discharge Orders: DNAR: DNAR Status: none Provider FINAL REVIEW of Orders: Final Review: Final Review of Medication Reconciliation and Orders Completedby Physician Reviewing ProviderElgin Lambert DO at 05-Jul-2021 11:33:41 Other Clinician Instructions: Other Instructions: Other Clinician InstructionsPlease talk with your expressive art therapist to discuss further workup Electronic Signatures: Elgin Lambert () (Signed 05-Jul-2021 11:33) Authored: Discharge Orders, Provider FINAL REVIEW of Orders, Other Clinician Instructions, Gold Form - Rope Tow Operator Summary Last Updated: 05-Jul-2021 11:33 by Elgin Lambert () Normal [facility] Echocardiogramon 07-05-2021 Echocardiography [facility], [address] [place] [address] and TRANSTHORACIC ECHOCARDIOGRAM REPORT Patient Name: HOSEA ALVAREZ Reading Physician: [id number] Josh Ortega MD Study Date: 07/05/2021 Referring Physician: Ana M Calhoun MRN/PID: [id number] PCP: Accession/Order#: [id number] Department Location: [facility] Non Invasive Date of : 1970 Fellow: Gender: M Nurse: Admit Date: 07/05/2021 [employer] Technician: Barbara Marie CLAY Admission Status: Inpatient - Additional Staff: Routine Height: 165.10 cm CC Report to: 1 [facility] Weight: 86.18 kg Study Type: Echocardiogram BSA: 1.94 m2 Blood Pressure: 137 /86 mmHg Diagnosis/ICD: R07.9-Chest pain, unspecified; R79.89-Elevated Troponin Indication: Chest Pain, Elevated troponin Procedure/CPT: Echo Complete w Full Doppler-[id number] Patient History: Pertinent History: Chest Pain. Elevated [...] LA Area A2C: 16.7 cm2 LA Major Wren A4C: 5.5 cm LA Major Wren A2C: 5.7 cm LA Volume Index: 19.6 [...] cm (18-2 (more content not included)... Normal [facility] Laboratory - Chemistry and C hemistry - challengeon 07-05-2021 Anion gap [Moles/Vol] 12 mmol/L 10 - 20 [facility] [address] Work Phone: Calcium [Mass/Vol] 9.0 mg/dL 8.6 - 10.3 [facility] [address] Work Phone: Chloride [Moles/Vol] 102 mmol/L 98 - 107 [facility] [address] Work Phone: CO2 [Moles/Vol] 27 mmol/L 21 - 32 [facility] [address] Work Phone: Creatinine [Mass/Vol] 0.93 mg/dL See Below [facility] [address] Work Phone: Comment on above: Reference Range: 0.5 0 - 1.30 Glucose [Mass/Vol] 109 mg/dL above high threshold 74 - 99 [facility] [address] Work Phone: Potassium [Moles/Vol] 4.1 mmol/L 3.5 - 5.3 [facility] [address] Work Phone: Sodium [Moles/Vol] 137 mmol/L 136 - 145 [facility] [address] Work Phone: Urea nitrogen [Mass/Vol] 17 mg/dL 6 - 23 [facility] [address] Work Phone: Laboratory - Hematology and Cell countson 07-05-2021 Erythrocyte distribution width (RBC) [Ratio] 12.9 % See Below [facility] [address] Work Phone: Comment on above: Reference Range: 11. 5 - 14.5 Hematocrit (Bld) [Volume fraction] 41.1 % See Below [facility] [address] Work Phone: Comment on above: Reference Range: 41. 0 - 52.0 Hemoglobin (Bld) [Mass/Vol] 13.3 g/dL below low threshold See Below [facility] [address] Work Phone: Comment on above: Reference Range: 13. 5 - 17.5 MCHC (RBC) [Mass/Vol] 32.4 g/dL See Below [facility] [address] Work Phone: Comment on above: Reference Range: 32. 0 - 36.0 MCV (RBC) [Entitic vol] 87 fL 80 - 100 [facility] [address] Work Phone: Platelets (Bld) [#/Vol] 137 10*3/uL below low threshold 150 - 450 [facility] [address] Work Phone: RBC (Bld) [#/Vol] 4.74 {x10E12/L} See Below [facility] [address] Work Phone: Comment on above: Reference Range: 4.5 0 - 5.90 WBC (Bld) [#/Vol] 3.0 10*3/uL below low threshold 4.4 - 11.3 [facility] [address] [facility] Work Phone: No Panel Informationon 07-05 >60 >60 [facility] [address] [facility] Work Phone: Comment on above: CALCULATIONS OF NIKOEL MATED GFR ARE PERFORMED USING THE MDRD [...] Injectable DOSE = 0.5 mL IntraVenous Push OnceCa.256421 mL/Kg/DOSE x 86.4 Kg = 0.5 mL/Dose [...] be shared with your follow-up providers (doctor, table filler, physical therapist, etc.). Guidelines for a Healthy [...] be shared with your follow-up providers (doctor, table filler, physical therapist, etc.). Guidelines for a Healthy Lifestyle losartan 50 mg oral tablet 1 tab(s) orally once a day metoprolol succinate 25 mg oral tablet, extended release 1 tab(s) orally once a day Normal [facility] Order Reconciliation Page 1 Admission [...] oral tablet 1 tab(s) orally once a [id number] 1 AM Losartan Tablet (COZAAR)DOSE = 50 mg Oral Dailylosartan 50 mg oral tablet continued as the inpatient order Losartan metoprolol succinate 25 mg oral tablet, extended release 1 tab(s) orally once a [id number] 1 AM Metoprolol Succinate Extended Release Tablet, [...] Injectable DOSE = 0.5 mL IntraVenous Push OnceCa.449503 mL/Kg/DOSE x 86.4 Kg = 0.5 mL/Dose [...] with 10 mL of Normal Saline. Normal [facility] Patient Profile - Adult v2on 07-05-2021 Patient Profile - Adult v2 Profile: Initial Info: How to be AddressedRay(1) Spoken Language PreferredEnglish (1) Stated Reason for Admissionchest pressure Wants Family/Rep Notified of Admissionno Notify PCPnotify PCP Informed of Patient [facility]yes [facility] Employment Statusunemployed(2) Current or Previous Serviceactive duty, past(2) Service Experienceexposed to hazardous materials(3) Patient Belongingsnone Medications Brought to Hospitalno General Health: Blood Avoidance/Restrictionsno ne(1) Previous Transfusion Reactionno(3) Weight in kg86.4 kilogram(s) Weight in zoy425.4 pound(s) Weight Methodstated Scale Typestanding Height in [...] Screen - Adult Emergency 04-Jul-2021 10:11 Normal [facility] TROPONIN Ion 07-05-2021 Troponin I.cardiac [Mass/Vol] 0.02 ng/mL Normal 0.00 - 0.03 [facility] Comment on above: Result [...] is performed using different testing methodology at [facility] than at other [facility] [facility]. Direct result comparisons should only be made within the same method. Performed By: #### T ROP2 #### [facility] [address] [place] [address] TROPONIN I Canceled Normal [facility] Comment on above: Order Comment: TEST TROPONIN [...] is performed using different testing methodology at [facility] than at [facility]. Direct result comparisons should only be made within the same method. Performed By: #### T ROP2 ####[facility] [place], [place] [id number] Troponin I, Serumon 07-05-20 Troponin I.cardiac [Mass/Vol] 0.02 ng/mL See Below [facility] Work Phone: Comment on above: Reference [...] is performed using different testing methodology at [facility] than at other [facility]. Direct result comparisons should only be made within the same method. APTTon 07-04-2021 aPTT Coag (Bld) [Time] 27 s Normal 25 - 35 [facility] Comment on above: Result Comment: THE APTT IS NO LONGER USED FOR MONITORING UNFRACTIONATED HEPARIN THERAPY. FOR MONITORING HEPARIN THERAPY, USE THE HEPARIN ASSAY. Performed By: #### U A #### [facility] [address] [place], [place] [id number] Activated Partial Thrombopla stin Timeon 07-04-2021 aPTT Coag (PPP) [Time] 27 s 25 - 35 [facility] [address] Work Phone: Comment on above: THE APTT IS NO LONGE R USED FOR MONITORING UNFRACTIONATED HEPARIN THERAPY. FOR MONITORING HEPARIN THERAPY, USE THE HEPARIN ASSAY. BA CTA ABD AORTA WITH BILAT ILIOFEM EXTR RUNOFF W/WO CONT POST PROCon 07-04-2021 BA CTA ABD AORTA WITH BILAT ILIOFEM EXTR RUNOFF W/WO CONT POST PROC Patient Name: HOSAE ALVAREZ STUDY: CTA ABD AORTA WITH BILAT ILIOFEM EXTR RUNOFF W/WO CONT POST PROC; CT ANGIO CHEST; 07/04/2021 11:32 am INDICATION: History of AAA, worsening chest pain radiating into the back. COMPARISON: CT of the abdomen and pelvis from September 25, 2018. ACCESSION NUMBER(S): [id number]; [id number] ORDERING CLINICIAN: NUBIA YOUNG PROCEDURE: CT ANGIOGRAM [...] ADRENAL GLAND (more content not included)... Normal [facility] BASIC METABOLIC PANELon 10- Anion gap [Moles/Vol] 10 mmol/L Normal 10 - 20 [facility] [address] Work Phone: Comment on above: Performed By: #### C BCDF #### [facility] [address] [place], [place] [id number] Calcium [Mass/Vol] 9.4 mg/dL Normal 8.6 - 10.3 [facility] -[place] [address] Work Phone: Comment on above: Performed By: #### C BCDF #### [place] [id number] [facility], [place] [id number] Chloride [Moles/Vol] 103 mmol/L Normal 98 - 107 [facility] ed[facility] -[place] [address] Work Phone: Comment on above: Performed By: #### C BCDF #### [address], [place] [id number] Creatinine [Mass/Vol] 1.00 mg/dL Normal 0.50 - 1.30 [facility] -[place] [address] Work Phone: Comment on above: Reference Range: 0.5 0 - 1.30 Performed By: #### C BCDF #### [address], [place] [id number] GFR- AM. >60 Normal >60 [facility] Comment on above: Result Comment: CALC ULATIONS OF ESTIMATED GFR ARE PERFORMED USING THE MDRD STUDY EQUATION FOR THE IDMS-TRACEABLE CREATININE METHODS. CLIN CHEM 2007;53:766-72 Performed By: #### C BCDF #### [address], [place] [id number] GFR-NON AM. >60 Normal >60 [facility] Comment on above: Performed By: #### C BCDF #### [place] [id number] [facility], [place] [id number] Glucose [Mass/Vol] 106 mg/dL High 74 - 99 [facility] -[place] [address] Work Phone: Comment on above: Performed By: #### C BCDF #### [address], [place] [id number] HCO3 (Bld) [Moles/Vol] 31 mmol/L Normal 21 - 32 [facility] Comment on above: Performed By: #### C BCDF #### [facility] [address] [facility], [place] [id number] Potassium [Moles/Vol] 4.5 mmol/L Normal 3.5 - 5.3 [facility] [address] Work Phone: Comment on above: Performed By: #### C BCDF #### [place] [address] [facility], [place] [id number] Sodium [Moles/Vol] 139 mmol/L Normal 136 - 145 [facility] -[place] [address] Work Phone: Comment on above: Performed By: #### C BCDF #### [address], [place] [id number] Urea nitrogen [Mass/Vol] 17 mg/dL Normal 6 - 23 [facility] [address] Work Phone: Comment on above: Performed By: #### C BCDF #### [address], [place] [id number] BNPon 07-04-2021 Natriuretic peptide B (Bld) [Mass/Vol] 49 pg/mL Normal 0 - 99 [facility] Comment on above: Result Comment: . <1 00 pg/mL - Heart failure unlikely 100-299 pg/mL - Intermediate probability of acute heart . failure exacerbation. Correlate with clinical . context and patient history. >=300 pg/mL - Heart Failure likely. Correlate with clinical . context and patient history. BNP testing is performed using different testing methodology at [facility] than at other [facility] [place] [facility]. Direct result comparisons should only be made within the same method. Performed By: #### C BCDF #### [address], [place] [id number] CBC AND DIFFERENTIALon 07-04 % AUTOMATED IMMATURE GRAN 0.6 % Normal 0.0 - 0.9 [facility] Comment on above: Result Comment: Kath ture Granulocyte Count (IG) includes promyelocytes, myelocytes and metamyelocytes but does not include bands. Percent differential counts (%) should be interpreted in the context of the absolute cell counts (cells/L). Performed By: #### C BCDF ####[address], [place] [id number] Basophils (Bld) [#/Vol] 0.02 10*3/uL Normal 0.00 - 0.10 [facility] Comment on above: Performed By: #### C BCDF ####[address], [place] [id number] Basophils/100 WBC (Bld) 0.6 % Normal 0.0 - 2.0 [facility] Comment on above: Performed By: #### C BCDF ####[address], [place] [address] Eosinophils (Bld) [#/Vol] 0.09 10*3/uL Normal 0.00 - 0.70 [facility] Comment on above: Performed By: #### C BCDF ####[address], [place] [id number] Eosinophils/100 WBC (Bld) 2.8 % Normal 0.0 - 6.0 [facility] Comment on above: Performed By: #### C BCDF ####[address], [place] [id number] Erythrocyte distribution width (RBC) [Ratio] 12.8 % Normal 11.5 - 14.5 [facility] Comment on above: Performed By: #### C BCDF ####[address], [place] [address] Hematocrit (Bld) [Volume fraction] 39.4 % Low 41.0 - 52.0 [facility] Comment on above: Performed By: #### C BCDF ####[address], [place] [address] Hemoglobin (Bld) [Mass/Vol] 13.3 g/dL Low 13.5 - 17.5 [facility] Comment on above: Performed By: #### C BCDF ####[address], [place] [id number] Lymphocytes (Bld) [#/Vol] 0.85 10*3/uL Low 1.20 - 4.80 [facility] Comment on above: Performed By: #### C BCDF ####[facility] [facility], [place] [address] Lymphocytes/100 WBC (Bld) 26.0 % Normal 13.0 - 44.0 [facility] Comment on above: Performed By: #### C BCDF ####[facility] [facility], [place] [phone] MCHC (RBC) [Mass/Vol] 33.8 g/dL Normal 32.0 - 36.0 [facility] Comment on above: Performed By: #### C BCDF ####[facility] [facility], [place] [phone] MCV (RBC) [Entitic vol] 83 fL Normal 80 - 100 [facility] Comment on above: Performed By: #### C BCDF ####[facility] [facility], [place] [phone] Monocytes (Bld) [#/Vol] 0.35 10*3/uL Normal 0.10 - 1.00 [facility] Comment on above: Performed By: #### C BCDF ####[facility] [facility] [id number] Monocytes/100 WBC (Bld) 10.7 % Normal 2.0 - 10.0 [facility] Comment on above: Performed By: #### C BCDF ####[facility] [facility] [id number] Neutrophils (Bld) [#/Vol] 1.94 10*3/uL Normal 1.20 - 7.70 [facility] Comment on above: Performed By: #### C BCDF ####[facility] [facility] [id number] Neutrophils/100 WBC (Bld) 59.3 % Normal 40.0 - 80.0 [facility] Comment on above: Performed By: #### C BCDF ####[facility] [facility], [place] [id number] Platelets (Bld) [#/Vol] 140 10*3/uL Low 150 - 450 [facility] Comment on above: Performed By: #### C BCDF ####[facility] [facility] [id number] RBC 4.73 x10E12/L Normal 4.50 - 5.90 [facility] Comment on above: Performed By: #### C BCDF ####[facility] [facility], [place] [id number] WBC (Bld) [#/Vol] 3.3 10*3/uL Low 4.4 - 11.3 [facility] Comment on above: Performed By: #### C BCDF ####[facility] [facility], [place] [id number] CHEST 1 VIEWon 07-04-2021 CHEST 1 VIEW STUDY: Chest Radiograph; 07/04/2021 9:31 AM. INDICATION: Chest pain and pressure. COMPARISON: CXR 06/07/2021. ACCESSION NUMBER(S): [id number] ORDERING CLINICIAN: NUBIA YOUNG DO TECHNIQUE: Frontal chest was obtained at 09:50 hours. FINDINGS: CARDIOMEDIASTINAL SILHOUETTE: Cardiomediastinal silhouette is normal in size and configuration. LUNGS: Lungs are clear. ABDOMEN: No remarkable upper abdominal findings. BONES: No acute osseous changes. IMPRESSION: 1. No acute pulmonary infiltrate. Signed by Cnadice Crandall Electronically signed by: CANDICE CRANDALL MD Normal [facility] CORONAVIRUS 2019 BY PCRon SARS-CoV-2 (COVID-19) RNA TATI+probe Ql (Unsp spec) Not detected Normal Not Detected [facility] Comment on above: Result Comment: . This test has received FDA Emergency Use Authorization (EUA) and has been verified by [facility]. This test is only authorized for the duration of time that circumstances exist to justify the authorization of the emergency use of in vitro diagnostic tests for the detection of SARS-CoV-2 virus and/or diagnosis of COVID-19 infection under section 564(b)(1) of the Act, 21 U.S.C. 360bbb-3(b)(1), unless the authorization is terminated or revoked sooner. [facility] is certified under CLIA-88 as qualified to perform high complexity testing. Testing is performed in the [facility] laboratory located at [address] [place] [address], [place] [address]. SARS-CoV-2/Flu/RSV Multiplex Test: Fact sheet for providers: https://www.fda.gov/media/512578/download Fact sheet for patients: https://www.fda.gov/media/219117/download Performed By: #### C OV19 ####[facility] [place], [place] [id number] DATE OF SYMPTOM ONSET [YYYYMMDD]? [id number] Normal [facility] Comment on above: Performed By: #### C OV19 ####[facility] [place], [place] [phone] Lab Specimen Source Nasal, Nasopharyngeal Normal [facility] Comment on above: Performed By: #### C OV19 ####[facility] [place], [place] [id number] CT Angio Cheston 07-04-2021 CTA Chest vessels Normal [facility] -[employer] [address] Work Phone: CTA ABD Aorta With Bilat Елена ofem Extr Runoff w/wo Cont Post Procon 07-04-2021 CTA ABD Aorta With Bilat Iliofem Extr Runoff w/wo Cont Post Proc Normal [facility] -[employer] [address] Work Phone: Complete Blood Count + Diffe rentialon 07-04-2021 Basophils/100 WBC (Bld) 0.6 % 0.0 - 2.0 [facility] -[employer] [address] Work Phone: Erythrocyte distribution width (RBC) [Ratio] 12.8 % See Below -Pediatrics -[employer] [address] Work Phone: Comment on above: Reference Range: 11. 5 - 14.5 Hematocrit (Bld) [Volume fraction] 39.4 % below low threshold See Below [facility] -[place] [address] Work Phone: Comment on above: Reference Range: 41. 0 - 52.0 Hemoglobin (Bld) [Mass/Vol] 13.3 g/dL below low threshold See Below [facility] [address] Work Phone: Comment on above: Reference Range: 13. 5 - 17.5 Lymphocytes/100 WBC (Bld) 26.0 % See Below [facility] [address] Work Phone: Comment on above: Reference Range: 13. 0 - 44.0 MCHC (RBC) [Mass/Vol] 33.8 g/dL See Below [facility] -[place] [address] Work Phone: Comment on above: Reference Range: 32. 0 - 36.0 MCV (RBC) [Entitic vol] 83 fL 80 - 100 [facility] [address] Work Phone: Monocytes/100 WBC (Bld) 10.7 % 2.0 - 10.0 [facility] [address] Work Phone: Neutrophils/100 WBC (Bld) 59.3 % See Below [facility] -[place] [address] Work Phone: Comment on above: Reference Range: 40. 0 - 80.0 Platelets (Bld) [#/Vol] 140 10*3/uL below low threshold 150 - 450 [facility] -[place] [address] Work Phone: RBC (Bld) [#/Vol] 4.73 {x10E12/L} See Below [facility] -[place] [address] Work Phone: Comment on above: Reference Range: 4.5 0 - 5.90 WBC (Bld) [#/Vol] 3.3 10*3/uL below low threshold 4.4 - 11.3 [facility] [address] Work Phone: Complete Blood Count + Differential 0.02 {x10E9/L} See Below [facility] [address] Work Phone: Comment on above: Reference Range: 0.0 0 - 0.10 Complete Blood Count + Differential 0.09 {x10E9/L} See Below [facility] [address] Work Phone: Comment on above: Reference Range: 0.0 0 - 0.70 Complete Blood Count + Differential 0.35 {x10E9/L} See Below [facility] [address] Work Phone: Comment on above: Reference Range: 0.1 0 - 1.00 Complete Blood Count + Differential 0.85 {x10E9/L} below low threshold See Below [facility] [address] Work Phone: Comment on above: Reference Range: 1.2 0 - 4.80 Complete Blood Count + Differential 1.94 {x10E9/L} See Below [facility] [address] Work Phone: Comment on above: Reference Range: 1.2 0 - 7.70 Complete Blood Count + Differential 2.8 % 0.0 - 6.0 [facility] [address] Work Phone: Complete Blood Count + Differential 0.6 % 0.0 - 0.9 [facility] [address] Work Phone: Comment on above: Immature Granulocyte Count (IG) includes promyelocytes, myelocytes and metamyelocytes but does not include bands. Percent differential counts (%) should be interpreted in the context of the absolute cell counts (cells/L). Coronavirus 2019 RNA by PCR, Symptomaticon 07-04-2021 Date and time of symptom onset [id number] 1 [facility] [address] Work Phone: Coronavirus 2019 RNA by PCR, Symptomatic Not detected Normal See Below [facility] s -[place] [address] Work Phone: Comment on above: SOURCE: Nasal, Nasop haryngealReference Range: Not Detected.This test has received FDA Emergency Use Authorization (EUA) and has been verified by [facility]. This test is only authorized for the duration of time that circumstances exist to justify the authorization of the emergency use of in vitro diagnostic tests for the detection of SARS-CoV-2 virus and/or diagnosis of COVID-19 infection under section 564(b)(1) of the Act, 21 U.S.C. 360bbb-3(b)(1), unless the authorization is terminated or revoked sooner. [facility] is certified under CLIA-88 as qualified to perform high complexity testing. Testing is performed in the [facility] laboratory located at [address] [place] [address]. SARS-CoV-2/Flu/RSV Multiplex Test: Fact sheet for providers: https://www.fda.gov/media/539382/downloadFact sheet for patients: https://www.fda.gov/media/466883/download Covid 19 Resultson 1 SARS-CoV-2 (COVID-19) RNA [...] You may also be contacted by the [facility] to see if any of your close [...] or Naproxen (Aleve) can also be used. Frbe-rul-wsdejzg cough and cold medicines can be used according to the instructions on the package. Some krbo-wvl-lgkhkze medicines also contain acetaminophen. Make sure you [...] water are not available, use alcohol-based hand transit worker. Avoid touching your eyes, nose, and mouth [...] 24 guerline (more content not included)... Normal [facility] Discharge Planning [id number] 1 Discharge Planning Note2 Discharge Planning: Anticipated Discharge [id number] Discharge Planning 07-04-21 [id number] Pt asked attending to speak to DAVID. DAVID is familiar with pt from multiple ED visits, multiple requests to speak with DAVID. Pt told this parts data writer last ED visit that he has a senior case manager. DAVID asked car spotter to ask pt what his needs were -pt said he wanted referrals for cardiology and urology. Home Appliance Washing Machine Mechanic said she could get these for the pt. Pt also asked for a schedule of his upcoming appts. These were emailed to car spotter to give to pt. Patient will be admitted. Merissa RITTER Assessment: Discharge Planning Assessment [id number] Electronic Signatures: Merissa Acevedo (DAVID) (Signed 04-Jul-2021 14:43) Authored: Discharge Planning, Assessment Last Updated: 04-Jul-2021 14:43 by Merissa Acevedo () Normal [facility] EMR ADDONon 07-04-2021 ADDON CONFIRMATION REQUEST REC'D Normal [facility] Comment on above: Performed By: #### E MRAD ####[facility] [place], [place] [id number] LIPASEon 07-04-2021 Lipase [Catalytic activity/Vol] 10 U/L Normal 9 - 82 [facility] Comment on above: Result Comment: Jocelyn puncture immediately after or during the administration of Metamizole may lead to falsely low results. Testing should be performed immediately prior to Metamizole dosing. P-ijdqen-c-benzoquinone imine (metabolite of Acetaminophen) will generate erroneously low results in samples for patients that have taken toxic doses of acetaminophen. Performed By: #### U A #### [facility] [address] [place], [place] [id number] Laboratory - Chemistry and C hemistry - challengeon 07-04-2021 CO2 [Moles/Vol] 31 mmol/L 21 - 32 [facility] -[place] [address] Work Phone: Lipase, Serumon 07-04-2021 Lipase [Catalytic activity/Vol] 10 U/L 9 - 82 [facility] -[place] [address] Work Phone: Comment on above: Venipuncture immedia tely after or during the administration of Metamizole may lead to falsely low results. Testing should be performed immediately prior to Metamizole dosing. W-lejalz-n-benzoquinone imine (metabolite of Acetaminophen) will generate erroneously low results in samples for patients that have taken toxic doses of acetaminophen. Magnesium, Serumon Magnesium [Mass/Vol] 2.07 mg/dL Normal 1.60 - 2.40 [facility] -[place] [address] Work Phone: Comment on above: Reference Range: 1.6 0 - 2.40 Performed By: #### C BCDF #### [facility] [address] [place], [place] [id number] No Panel Informationon 07-04 [email or web address]?[email or web address] e?CjvyhfvDT=[email or web address]&Da te=09-01-2021&Time=13%3a 01%3a26%3a00&TestType=EC G&Site=6&OutputType=PDF& Ext=PDF [facility] -[place] [address] Work Phone: Normal sinus rhythm [facility]-Pe diat[facility] -[place] [address] Work Phone: Abnormal [facility] -[place] [address] Work Phone: 386 1 [facility] -[place] [address] Work Phone: 406 1 [facility] -[place] [address] Work Phone: 161 1 [facility] -[place] [address] Work Phone: [phone] [facility] [address] Work Phone: 219 1 [facility] [address] Work Phone: 11 1 [facility] -[place] [address] Work Phone: 1 1 [facility] -[place] [address] Work Phone: -28 1 [facility] [address] Work Phone: 74 1 [facility] -[place] [address] Work Phone: 392 1 [facility] -[place] [address] Work Phone: 374 1 [facility] [address] Work Phone: 86 1 [facility] -[place] [address] Work Phone: 200 1 [facility] -[place] [address] Work Phone: 66 1 [facility] [address] Work Phone: >60 >60 [facility] [address] Work Phone: [phone] Comment on above: CALCULATIONS OF NIKOLE MATED GFR ARE PERFORMED USING THE MDRD STUDY EQUATION FOR THE IDMS-TRACEABLE CREATININE METHODS. CLIN CHEM 2007;53:766-72 49 pg/mL 0 - 99 [facility] [address] Work Phone: Comment on above: . <100 pg/mL - Heart failure [id number] pg/mL - Intermediate probability of acute heart. failure exacerbation. Correlate with clinical. context and patient history. >=300 pg/mL - Heart Failure likely. Correlate with clinical. context and patient history.BNP testing is performed using different testing methodology at [facility] than at other [facility]. Direct result comparisons should only be made within the same method. [email or web address] 1:80 [email or web address].d ll?RetrieveTestByDateTim e?LmjindiCT=[id number]&Da te=09-01-2021&Time=09%3a 35%3a48%3a00&TestType=EC G&Site=6&OutputType=PDF& Ext=PDF [facility] [address] Work Phone: Normal sinus rhythm [facility] diat[facility] -[place] [address] Work Phone: Abnormal [facility] [address] Work Phone: [phone] [facility] [address] Work Phone: [phone] [facility] [address] Work Phone: [phone] 1 [facility] [address] Work Phone: [phone] 1 [facility] [address] Work Phone: [phone] 1 [facility] [address] Work Phone: [phone] 1 [facility] [address] Work Phone: 1 1 [facility] [address] Work Phone: -[phone] 1 [facility] [address] Work Phone: 30 1 [facility] [address] Work Phone: [phone] [facility] [address] Work Phone: [phone] [facility] [address] Work Phone: 100 1 [facility] [address] Work Phone: [phone] [facility] [address] Work Phone: 62 1 [facility] [address] Work Phone: Provider Note [...] and heparinized. He requested to go to [facility] for transfer. At this time patient is chest pain-free here in the ED and we are awaiting a callback from the transfer center for a bed availability at [facility] as we do not have any available at our hospital. Patient was signed out in stable condition to oncoming physician at shift change. Patient was told of all the findings on the CT and results of today's labs and imaging. Note: This note was dictated by speech recognition. Minor errors in beater out may be present. HISTORY OF PRESENTING ILLNESS [...] Code:Z78.9 Medic (more content not included)... Normal [facility] Radiologyon 07-04-2021 XR Chest Single view Normal [facility] [address] Work Phone: Risk Screen [...] instruction; written material Cultural Considerationsnone Developmental Considerationsnone Presybeterian Considerationsnone Learning Assessment (Other Learner): Learning Assessment [...] an injured patient at a Trauma Center ([facility]): no Electronic Signatures: Irving Guerrero (RN) (Signed 04-Jul-2021 10:12) Authored: Preferred Language, Advanced Directives, Family Violence Adult, Learning Assessment (Patient), Learning Assessment (Other Learner), Pressure Injury/TB/Substance, Pressure Injury, CAGE Last Updated: 04-Jul-2021 10:12 by Irving Guerrero (RN) [facility] CT ANGIO CHESTon 07-04-20 CT ANGIO CHEST Patient Name: HOSEA ALVAREZ STUDY: CTA ABD AORTA WITH BILAT ILIOFEM EXTR RUNOFF W/WO CONT POST PROC; CT ANGIO CHEST; 07/04/2021 11:32 am INDICATION: History of AAA, worsening chest pain radiating into the back. COMPARISON: CT of the abdomen and pelvis from September 25, 2018. ACCESSION NUMBER(S): [id number]; [id number] ORDERING CLINICIAN: NUBIA YOUNG PROCEDURE: CT ANGIOGRAM [...] ADRENAL GLAND (more content not included)... Normal [facility] TROPONIN Ion 07-04-2021 Troponin I.cardiac [Mass/Vol] 0.10 ng/mL Critically high 0.00 - 0.03 [facility] Comment on above: Order Comment: Josseline kline [...] is performed using different testing methodology at [facility] than at other [facility]. Direct result comparisons should only be made within the same method. Called troponin- RB to Liz Arechiga , 07/04/2021 16:54 Performed By: #### C BC #### [facility] [id number] [place] [address] [id number] Troponin I.cardiac [Mass/Vol] 0.71 ng/mL Critically high 0.00 - 0.03 [facility] Comment on above: Order Comment: Josseline kline- [...] is performed using different testing methodology at [facility] than at other [facility]. Direct result comparisons should only be made within the same method. Called- RB to Sinan, 07/04/2021 14:32 Performed By: #### C BCDF #### [facility] [address] [place], [place] [id number] Triage - EDon 07-04-2021 Triage - ED Chart Review: ARRIVAL INFORMATION Mode of Arrival: ambulance Agency Name: [facility] CHIEF COMPLAINT HOSEA ALVAREZ is a Male [...] obeys commands Best Verbal Response: (V5) oriented [place] Score: 15 Cough lasting greater than 3 [...] Updated: 04-Jul-2021 09:50 by Irving Guerrero ([place]) [facility] Troponin I, Serumon 07-04-20 21 Troponin I.cardiac [Mass/Vol] Canceled [employer] Work Phone: Comment on above: LESS THAN [...] is performed using different testing methodology at [facility] than at other [facility]. Direct result comparisons should only be made within the same method. Troponin I.cardiac [Mass/Vol] 0.10 ng/mL Critically high See Below [facility] Work Phone: Comment on above: Reference Range: [...] is performed using different testing methodology at [facility] than at other system hospitals. Direct result comparisons should only be made within the same method. Called troponin- RB to Liz Arechiga , 07/04/2021 16:54 Troponin I.cardiac [Mass/Vol] 0.71 ng/mL Critically high See Below [facility] -[place] [address] Work Phone: Comment on above: Reference Range: [...] is performed using different testing methodology at [facility] than at other system hospitals. Direct result comparisons should only be made within the same method. Called- RB to Sinan, 07/04/2021 14:32 Troponin I.cardiac [Mass/Vol] ng/mL Normal 0.00 - 0.03 [facility] Work Phone: Comment on above: Reference Range: [...] is performed using different testing methodology at [facility] than at other system hospitals. [...] is performed using different testing methodology at [facility] than at other [facility]. Direct result comparisons should only be made within the same method. Performed By: #### T ROP2 ####[facility] [place], [place] [id number] Office Visit (Vascular Surge ry)on 06-28-2021 Follow-up [...] Vital Signs Recorded: 28Jun2021 09:34AMRecorded: 28Jun2021 09:32AM Ugaarkjj210, LUE, Uozcpwl453, LUE, Sitting Sblqnoixf15, LUE, Gsvctuk07, LUE, Sitting Heart Rate91 Nllhsjafzrk31 Height5 ft 6 in Ypjafg697 lb BMI Mzwopgwmnr54.47 kg/m2 BSA Calculated1.98 Tobacco Usea) Yes Fall Screeninga) No falls within the last year O2 Wuzsumtulu85 Pain Scale0 Physical Exam Constitutional: Well developed and well nourished. In no acute distress Neuro: Grossly normal without focal deficits Eyes: PERRL, EOMI Neck: Supple. No carotid bruits noted Cardiac: RRR, no murmur Resp: Clear to ausc (more content not included)... Normal [employer] Tobacco Screening.on 021 Fall risk assessment a) No falls within the last year [facility] Work Phone: Tobacco use status [facility] a) Yes [facility] Work Phone: BA CTA ABDOMEN PELVIS WITH [...] Lie Flat: Yes. COMPARISON: None. ACCESSION NUMBER(S): [id number] ORDERING CLINICIAN: BALTA MELO TECHNIQUE: Thin-section axial [...] signed by: YUMI WATERS MD Normal [facility] CBC AND DIFFERENTIALon 06-26 % AUTOMATED IMMATURE GRAN 0.5 % Normal 0.0 - 0.9 [facility] Comment on above: Result Comment: Kath ture Granulocyte Count (IG) includes promyelocytes, myelocytes and metamyelocytes but does not include bands. Percent differential counts (%) should be interpreted in the context of the absolute cell counts (cells/L). Performed By: #### C BCDF #### [facility] [address] [place] [address] Basophils (Bld) [#/Vol] 0.01 10*3/uL Normal 0.00 - 0.10 [facility] Comment on above: Performed By: #### C BCDF #### [facility] [address] [place] [address] Basophils/100 WBC (Bld) 0.2 % Normal 0.0 - 2.0 [facility] Comment on above: Performed By: #### C BCDF #### [facility] [address] [place] [address] Eosinophils (Bld) [#/Vol] 0.09 10*3/uL Normal 0.00 - 0.70 [facility] Comment on above: Performed By: #### C BCDF #### [facility] [address] [place] [address] Eosinophils/100 WBC (Bld) 2.1 % Normal 0.0 - 6.0 [facility] Comment on above: Performed By: #### C BCDF #### [facility] [address] [place] [address] Erythrocyte distribution width (RBC) [Ratio] 12.9 % Normal 11.5 - 14.5 [facility] Comment on above: Performed By: #### C BCDF #### [facility] [address] [place] [address] Hematocrit (Bld) [Volume fraction] 38.4 % Low 41.0 - 52.0 [facility] Comment on above: Performed By: #### C BCDF #### [facility] [address] [place] [address] Hemoglobin (Bld) [Mass/Vol] 12.2 g/dL Low 13.5 - 17.5 [facility] Comment on above: Performed By: #### C BCDF #### [facility] [address] [place] [address] Lymphocytes (Bld) [#/Vol] 0.86 10*3/uL Low 1.20 - 4.80 [facility] Comment on above: Performed By: #### C BCDF #### [facility] [address] [place] [address] Lymphocytes/100 WBC (Bld) 20.0 % Normal 13.0 - 44.0 [facility] Comment on above: Performed By: #### C BCDF #### [facility] [address] [place] [address] MCHC (RBC) [Mass/Vol] 31.8 g/dL Low 32.0 - 36.0 [facility] Comment on above: Performed By: #### C BCDF #### [facility] [address] [place] [address] MCV (RBC) [Entitic vol] 86 fL Normal 80 - 100 [facility] Comment on above: Performed By: #### C BCDF #### [facility] [address] [place] [address] Monocytes (Bld) [#/Vol] 0.40 10*3/uL Normal 0.10 - 1.00 [facility] Comment on above: Performed By: #### C BCDF #### [facility] [address] [place] [address] Monocytes/100 WBC (Bld) 9.3 % Normal 2.0 - 10.0 [facility] Comment on above: Performed By: #### C BCDF #### [facility] [address] [place] [address] Neutrophils (Bld) [#/Vol] 2.91 10*3/uL Normal 1.20 - 7.70 [facility] Comment on above: Performed By: #### C BCDF #### [facility] [address] [place] [address] Neutrophils/100 WBC (Bld) 67.9 % Normal 40.0 - 80.0 [facility] Comment on above: Performed By: #### C BCDF #### [facility] [address] [place] [address] NUCLEATED RBC 0.0 /100 WBC Normal 0.0-0.0 [facility] Comment on above: Performed By: #### C BCDF #### [facility] [address] [place] [address] Platelets (Bld) [#/Vol] 149 10*3/uL Low 150 - 450 [facility] Comment on above: Performed By: #### C BCDF #### [facility] [address] [place] [address] RBC 4.44 x10E12/L Low 4.50 - 5.90 [facility] Comment on above: Performed By: #### C BCDF #### [facility] [address] [place] [address] WBC (Bld) [#/Vol] 4.3 10*3/uL Low 4.4 - 11.3 [facility] Comment on above: Performed By: #### C BCDF #### [facility] [address] [place] [address] COMPREHENSIVE PANELon 2020 Albumin [Mass/Vol] 4.0 g/dL Normal 3.4 - 5.0 [facility] Comment on above: Performed By: #### C MP #### [facility] [address] [place] [address] ALP [Catalytic activity/Vol] 53 U/L Normal 33 - 120 [facility] Comment on above: Performed By: #### C MP #### [facility] [address] [place] [address] ALT [Catalytic activity/Vol] 25 U/L Normal 10 - 52 [facility] Comment on above: Result Comment: Yanni ents treated with Sulfasalazine may generate falsely decreased results for ALT. Performed By: #### C MP #### [facility] [address] [place] [address] Anion gap [Moles/Vol] 12 mmol/L Normal 10 - 20 [facility] Comment on above: Performed By: #### C MP #### [facility] [address] [place] [address] AST [Catalytic activity/Vol] 22 U/L Normal 9 - 39 [facility] Comment on above: Performed By: #### C MP #### [facility] [address] [place] [address] Bilirubin [Mass/Vol] 0.3 mg/dL Normal 0.0 - 1.2 [facility] Comment on above: Performed By: #### C MP #### [facility] [address] [place] [address] Calcium [Mass/Vol] 9.3 mg/dL Normal 8.6 - 10.6 [facility] Comment on above: Performed By: #### C MP #### [facility] [address] [place] [address] Chloride [Moles/Vol] 103 mmol/L Normal 98 - 107 [facility] Comment on above: Performed By: #### C MP #### [facility] [address] [place] [address] Creatinine [Mass/Vol] 1.03 mg/dL Normal 0.50 - 1.30 [facility] Comment on above: Performed By: #### C MP #### [facility] [address] [place] [address] GFR- AM. >60 Normal >60 [facility] Comment on above: Result Comment: CALC ULATIONS OF ESTIMATED GFR ARE PERFORMED USING THE MDRD STUDY EQUATION FOR THE IDMS-TRACEABLE CREATININE METHODS. CLIN CHEM 2007;53:766-72 Performed By: #### C MP #### [facility] [address] [place] [address] GFR-NON AM. >60 Normal >60 [facility] Comment on above: Performed By: #### C MP #### [facility] [address] [place] [address] Glucose [Mass/Vol] 86 mg/dL Normal 74 - 99 [facility] Comment on above: Performed By: #### C MP #### [facility] [address] [place] [address] HCO3 (Bld) [Moles/Vol] 26 mmol/L Normal 21 - 32 [facility] Comment on above: Performed By: #### C MP #### [facility] [address] [place] [address] Potassium [Moles/Vol] 4.1 mmol/L Normal 3.5 - 5.3 [facility] Comment on above: Performed By: #### C MP #### [facility] [address] [place] [address] Protein [Mass/Vol] 6.8 g/dL Normal 6.4 - 8.2 [facility] Comment on above: Performed By: #### C MP #### [facility] [address] [place] [address] Sodium [Moles/Vol] 137 mmol/L Normal 136 - 145 [facility] Comment on above: Performed By: #### C MP #### [facility] [address] [place] [address] Urea nitrogen [Mass/Vol] 21 mg/dL Normal 6 - 23 [facility] Comment on above: Performed By: #### C MP #### [facility] [address] [place] [address] CT Angio Abdomen Pelvis with Contrast including non cont Image with Post Procedureon 06-26-2021 CT Abdomen and Pelvis and CT angiogram Abdominal aorta W contrast IV Normal [facility]-José Miguel [facility] [employer] Work Phone: Complete Blood Count + Diffe rentialon 06-26-2021 Basophils/100 WBC (Bld) 0.2 % 0.0 - 2.0 [facility]-Backchatkatelynn mathews [employer] Work Phone: Erythrocyte distribution width (RBC) [Ratio] [...] Laboratory - Chemistry and C hemistry - [facility] 06-26-2021 Albumin BCP dye [Mass/Vol] 4.0 g/dL [...] U/L 9 - 39 [facility] [employer] Work Phone: Bilirubin [Mass/Vol] 0.3 mg/dL 0.0 - 1.2 [facility] [address] Work Phone: Calcium [Mass/Vol] 9.3 mg/dL 8.6 - 10.6 [facility] [address] Work Phone: Chloride [Moles/Vol] 103 mmol/L 98 - 107 [facility] [employer] Work Phone: CO2 [Moles/Vol] 26 mmol/L 21 [...] [facility] [address] Work Phone: [phone] Protein [Mass/Vol] 6.8 g/dL 6.4 - 8.2 [facility] Work Phone: [phone] Sodium [Moles/Vol] 137 mmol/L 136 - 145 [facility] Work Phone: [phone] Urea nitrogen [Mass/Vol] 21 mg/dL 6 - 23 [facility] Work Phone: [phone] No Panel Informationon 06-26 [email or web address]?RetrieveTestByDateTim e?EvhbqgpDS=[id number]&Da te=12-31-2020&Time=21%3a 34%3a04%3a00&TestType=EC G&Site=1&OutputType=PDF& Ext=PDF [facility] Work Phone: [phone] Please see ED Provid er Note for formal interpretation [facility] Work Phone: [phone] Normal [facility] Work Phone: [phone] [facility] Work Phone: [phone] [facility] Work Phone: [phone] 1 [facility] Work Phone: [phone] 1 [facility] Work Phone: [phone] [facility] Work Phone: [phone] 1 [facility] Work Phone: [phone] 1 [facility] Work Phone: [phone] 1 [facility] Work Phone: [phone] 1 [facility] [...] focal deficits. PSYCH: Appropriate mood and affect. Software Quality Tester: BR[place]NN Wilson ED Course/MDM Results: Labs and [...] Yanni (more content not included)... Normal [facility] Risk Screen - Adult Emergenc yon 06-26-2021 [...] material; verbal instruction Cultural Considerationsnone Developmental Considerationsnone Presybeterian Considerationsnone Learning Assessment (Other Learner): Learning Assessment (Other Learner): Other learner availableno Pressure Injury/TB/Substance: Pressure Injury: Pressure Injury Present on Admissionno Do you have a coughno Smoking Statusnever smoker Alcohol Usedenies Drug Usedenies Drug 2 Usedenies Admission Risk Screen: Significant IndicatorsComplete CAGE: CAGE: Is this an injured patient at a Trauma Center ([facility] /[place]): no Electronic Signatures: Tamika Mckinley (RN) (Signed 26-Jun-2021 20:52) Authored: Preferred Language, Advanced Directives, Family Violence Adult, Learning Assessment (Patient), Learning Assessment (Other Learner), Pressure Injury/TB/Substance, Pressure Injury, CAGE Last Updated: 26-Jun-2021 20:52 by Tamika Mckinley (RN) Normal [facility] Triage - EDon 06-26-2021 Triage - ED [...] Verbal Response: (V5) oriented Lynda Score: 15 [place] Assessment Qualifiers: patient not sedated/intubated Allergies: no [...] History Last Updated: 26-Jun-2021 14:51 by Melania Mroataya ([place]) Normal [facility] URINALYSISon 06-26-2021 Appearance (U) CLEAR Normal CLEAR [facility] Comment on above: Performed By: #### U A #### [facility] [address] [place] [address] Bilirubin Ql (U) Negative Normal NEGATIVE [facility] Comment on above: Performed By: #### U A #### [facility] [address] [place] [address] Color (U) STRAW Normal STRAW,YELLOW [facility] Comment on above: Performed By: #### U A #### [facility] [address] [place] [address] Glucose Ql (U) Negative Normal NEGATIVE [facility] Comment on above: Performed By: #### U A #### [facility] [address] [place] [address] Hemoglobin Ql (U) Negative Normal NEGATIVE [facility] Comment on above: Performed By: #### U A #### [facility] [address] [place] [address] Ketones Ql (U) Negative Normal NEGATIVE [facility] Comment on above: Performed By: #### U A #### [facility] [address] [place] [address] Leukocyte esterase Test strip Ql (U) Negative Normal NEGATIVE [facility] Comment on above: Performed By: #### U A #### [facility] [address] [place] [address] Nitrite Ql (U) Negative Normal NEGATIVE [facility] Comment on above: Performed By: #### U A #### [facility] [address] [place] [address] pH (U) 6.0 [pH] Normal 5.0 - 8.0 [facility] Comment on above: Performed By: #### U A #### [facility] [address] [place] [address] Protein Ql (U) Negative Normal NEGATIVE [facility] Comment on above: Performed By: #### U A #### [facility] [address] [place] [address] Specific gravity (U) [Rel density] 1.011 Normal 1.005 - 1.035 [facility] Comment on above: Performed By: #### U A #### [facility] [address] [place] [address] Urobilinogen (U) [Mass/Vol] mg/dL Normal 0.0 - 1.9 [facility] Comment on above: Performed By: #### U A #### [facility] [address] [place] [address] Urinalysison 06-26-2021 Color (U) STRAW See Below [facility] [employer] Work Phone: Comment on above: Reference Range: [...] <2.0 0.0 - 1.9 [facility] [employer] Work Phone: Urinalysis CLEAR CLEAR [facility] [employer] Work Phone: Office Visit (Internal Medic ine)on [...] Costochondritis; JOSE = N; Verified Transmission to [id number]; Last Updated By: [employer]; 06/23/2021 8:24:51 AM Acupuncture Group Referral Evaluation and Treatment Evaluate AND Treat Status: Hold For - Scheduling Requested for: 23Jun2021 Ordered;For: Costochondritis; Ordered By: Viral Amado Performed: Due: [id number] Provider Impressions Patient is a 50-year-old male [...] delivered by entirely different geographical areas in [place] (which is unusual). Of note he has been to multiple ERs including the [place] emergency room [facility] emergency room , [facility] emergency room for similar complaints and similar [...] his symptoms. Discussed referral to [facility] in [facility] however he is deferring at this time. [...] is established [facility] however he cannot tell me her name. [...] has established with a psychiatrist at the [facility] but is not currently on any medications. [...] doctor kalyani (more content not included)... Normal [employer] Tobacco Screening.on 021 Fall risk assessment a) No falls within the last year [employer] [facility] [employer] Work Phone: Tobacco use status [facility] b) No [employer] [facility] Work Phone: [employer] Flow[employer] Sodium, Low [facility] Work Phone: [phone] [employer] Healthy Eating [facility] Work Phone: [phone] [employer] Flowsheet GERD, anemia [facility] Work Phone: [phone] [employer] Flowsheet NKFA, but chocolate and caffeine cause stomach issues [facility] Work Phone: [phone] [employer] Flowsheet _1 family member [facility] Work Phone: [employer] Flowsheet Vitamins and Minerals [facility] Work Phone: [phone] [employer] Flowsheet 0-25% whole [facility] Work Phone: [phone] [employer] Flowsheet 0-25% fresh [facility] Work Phone: [phone] [employer] Flowsheet 75%-100% fresh [facility] Work Phone: [phone] [employer] Flowsheet 0 plant-based items [facility] Work Phone: [phone] [employer] Flowsheet 0-25% lowfat [facility] Work Phone: [phone] [employer] Flowsheet XAVIER [facility] Work Phone: [phone] [employer] Flowsheet At hospital frequently, has visted office multiple times. Prefers to eat Kosher when he can [facility] Work Phone: [phone] No Panel Informationon 06-21 [facility] Work Phone: [phone] [email or web address]} [facility] Work Phone: [phone] Order Reconciliationon 06-21 Order Reconciliation Page [...] tab(s) orally once a day Normal [facility] IO UA (automated w/o microsc opy)on 06-20-2021 Protein (U) [Mass/Vol] Negative [facility] Work Phone: [phone] IO UA (automated w/o microscopy) Negative [facility] Work Phone: [phone] IO UA (automated w/o microscopy) Normal (0.2-1.0 mg/dl) [facility] Work Phone: [phone] IO UA (automated w/o microscopy) 5.5 1 [facility] Work Phone: [phone] IO UA (automated w/o microscopy) 1.025 1 [facility] Work Phone: IO UA (automated w/o microscopy) Clear [facility] Work Phone: IO UA (automated w/o microscopy) Yellow [facility] Work Phone: Laboratory - Microbiology an d Antimicrobial susceptibilityon 06-20-2021 FLUAV RNA TATI+probe Ql (Nph) FLU A by PCR NEGATIVE (Reference Range: not available) [facility] FLUBV RNA TATI+probe Ql (Nph) FLU B by PCR NEGATIVE (Reference Range: not available) [facility] SARS-CoV-2 (COVID-19) RNA TATI+probe Ql (Unsp spec) SARS-CoV-2 by PCR NEGATIVE (NEG ) [facility] Office Visit (Urgent Care)on 06-20-2021 Follow-up visit Orders Palpitations IO EKG Electrocardiogram- 12 Lead; Status:Active - Perform Order,Retrospective Authorization; Requested for:[id number]; Perform:In Office; Due:[id number]; Last Updated By:Marianne Breen; 06/20/2021 2:04:28 PM;Ordered; [...] Vital Signs Recorded: 20Jun2021 02:03PMRecorded: 20Jun2021 02:02PM Umeuxupj97, LUE, Wvvgdop245, RUE, Sitting Jndivmakf97, LUE, Ujsckre79, RUE, Sitting Wxwghbebxxg15.1 F Heart Rate84 Srclzbbhymj51 O2 Jykkpbplav91 Pain Scale8/10 Physical Exam Constitutional: Well developed, [...] Jun 20 2021 3:08PM EST (Author) Normal [employer] Laboratory - Chemistry and C hemistry - challengeon 06-18-2021 Anion gap [Moles/Vol] Anion Gap 16 MMOL/ L (0-19 MMOL/L) 0 - 19 MMOL/L [facility] Calcium [Mass/Vol] Calcium 9.2 MG/DL (8.5-10.4 MG/DL) 8.5 - 10.4 MG/DL S Chloride [Moles/Vol] Chloride 103 MMOL/L (97-107 MMOL/L) 97 - 107 MMOL/L [facility] CO2 [Moles/Vol] Carbon Dioxide 24 MM OL/L (24-31 MMOL/L) 24 - 31 MMOL/L [facility] Creatinine [Mass/Vol] Creatinine R 1.0 M G/DL (0.4-1.6 MG/DL) 0.4 - 1.6 MG/DL [facility] GFR/1.73 sq M.predicted MDRD (S/P/Bld) [Vol rate/Area] EGFR 84 mL/min/1.73 m2 (Reference Range: not available) GFR ml/min/1.73m2 Stage ----- 90 1 60-89 2 30-59 3 15-29 4 <15 5 For -Americans, multiply EGFR result by 1.210 Calculation not validated for patients under 18 years of age. Performed at [address] [address] [facility] Glucose [Mass/Vol] Glucose 100 MG/DL H (65-99 MG/DL) High 65 - 99 MG/DL [facility] Potassium [Moles/Vol] Potassium R 4.1 MM OL/L (3.4-5.1 MMOL/L) 3.4 - 5.1 MMOL/L [facility] Sodium [Moles/Vol] Sodium 143 MMOL/L (133-145 MMOL/L) RESULTS REVIEWED 133 - 145 MMOL/L [facility] Troponin T.cardiac [Mass/Vol] HS Troponin T,Gen 5 [...] until 8 hours following last biotin administration. [employer] Urea nitrogen [Mass/Vol] BUN 12 MG/DL (8-25 MG/DL) 8 - 25 MG/DL [employer] Urea nitrogen/Creatinine [Mass ratio] BUN Creatinine Ratio 12.0 RATIO (8-21 RATIO) 8 - 21 RATIO [employer] Laboratory - Hematology and Cell countson 06-18-2021 Basophils (Bld) [#/Vol] Abs Baso 0.01 K/UL (0.00-0.22 K/UL) 0.00 - 0.22 K/UL [facility] Basophils/100 WBC (Bld) Basophil 0.30 % (0-1 %) 0 - 1 % [facility] Differential cell count method Nom (Bld) Diff Type AUTO DIFF (Reference Range: not available) [facility] Eosinophils (Bld) [#/Vol] Abs Eos 0.07 K/UL (0-0.45 K/UL) 0 - 0.45 K/UL [facility] Eosinophils/100 WBC (Bld) Eosinophil 2.10 % (0-3 %) 0 - 3 % [facility] Erythrocyte distribution width (RBC) [Entitic vol] RDW SD 39.3 FL (37.0-54.0 FL) 37.0 - 54.0 FL [facility] Erythrocyte distribution width (RBC) [Ratio] RDW CV 12.9 % (11.7-15.0 %) 11.7 - 15.0 % [facility] Hematocrit (Bld) [Volume fraction] HCT 41.2 % (41-50 %) 41 - 50 % [facility] Hemoglobin (Bld) [Mass/Vol] HGB 13.6 GM/DL (13.5-16.5 [...] 100 FL S Monocytes (Bld) [#/Vol] Abs Brown 0.33 K/UL (0-0.8 K/UL) 0 - 0.8 K/UL [facility] Monocytes/100 WBC (Bld) Monocyte 9.80 % H (0-8 %) High 0 - 8 % [facility] Neutrophils (Bld) [#/Vol] Abs.Neut.Calculated 1.77 K/UL (Reference Range: not available) Performed at [facility] [address] [address] [facility] Neutrophils (Bld) [#/Vol] Abs Neut 1.77 K/UL L (1.8-7.7 K/UL) Low 1.8 - 7.7 K/UL [facility] Neutrophils.immature/ 100 WBC (Bld) Immature Neut % 0.30 % (0.0-1.0 %) 0.0 - 1.0 % [facility] Nucleated RBC/100 WBC (Bld) [Ratio] NRBCs 0 /100 WBC (0 /100 WBC) [facility] Platelet mean volume (Bld) [Entitic vol] MPV 10.7 CU (7.0-12.6 CU) 7.0 - 12.6 CU [facility] Platelets (Bld) [#/Vol] PLT 153 K/UL (150-450 K/UL) 150 - 450 K/UL [facility] RBC (Bld) [#/Vol] RBC 4.87 M/UL (4.5-5 .5 M/UL) 4.5 - 5.5 M/UL [facility] Segmented neutrophils/100 WBC (Bld) Granulocyte 52.50 % (50-70 %) 50 - 70 % [facility] WBC (Bld) [#/Vol] WBC 3.4 K/UL L (4.5- 11.0 K/UL) Low 4.5 - 11.0 K/UL [facility] Laboratory - Microbiology an d Antimicrobial susceptibilityon 06-18-2021 FLUAV RNA TATI+probe Ql (Nph) FLU A by PCR NEGATIVE (Reference Range: not available) [facility] FLUBV RNA TATI+probe Ql (Nph) FLU B by PCR NEGATIVE (Reference Range: not available) [facility] SARS-CoV-2 (COVID-19) RNA TATI+probe Ql (Unsp spec) SARS-CoV-2 by PCR NEGATIVE (NEG ) [facility] No Panel Informationon 06-18 XR Chest 2 Views (PA and lat) (Reference Range: not available) *FINAL Date of Service: 06/18/2021 04:17 Adm #: [id number] Reading Dr:SOHAIL MARINA Signoff Dr: SOHAIL MARINA [...] structures are unchanged. Impression: Normal chest radiographs. [id number] This report has been produced using speech recognition. Original Interpreting Physician: SOHAIL MARINA M.D. Original Transcribed by/Date: [facility] Jun 18 2021 8:50A Original Electronically Signed by/Date: SOHAIL MARINA M.D. Jun 18 2021 8:50A Addendum Interpreting Physician: Addendum Transcribed by/Date: NO ADDENDUM Addendum Electronically Signed by/Date: [facility] HS Troponin T Delta 0 (0-4 ) Performed at [address] [address] 0 - 4 [facility] EKG (Reference Range : not available) Ventricular Rate : 86 BPM Atrial Rate : 86 BPM P-R Interval : 168 ms QRS Duration : 102 ms Q-T Interval : 360 ms QTC Calculation(Bazett) : 430 ms Calculated P Wren : 37 degrees Calculated R Wren : -16 degrees Calculated T Wren : 22 degrees Diagnosis:Normal sinus rhythm Normal ECG When compared with ECG of 13-JUN-2021 11:32, Confirmed by AGUSTINA HENNESSY DO ([id number]) on 06/18/2021 10:20:41 AM See also the report from this date [facility] CASE MANAGEMon 06-15-2021 CASE MANAGEM HNO ID: [id number] Author: PADDY Grewal Service: Social Work Author Type: Business Machine Mechanic Type: Care Mgt Progress Note Filed: 06/15/2021 2:51 PM Note Text: CARE MANAGEMENT PROGRESS NOTE SERVICE DATE: 06/15/2021 SERVICE TIME: 2:50 PM LOS: 0 days Indigent medication received from pharmacy and provided to patient. He has a bus pass and is now discharged from hospital. SIGNATURE: PADDY Grewal PATIENT NAME: Hosea Alvarez DATE: June 15, 2021 TIME: 2:50 PM PAGER/CONTACT #: [phone] Normal [facility] CASE MANAGEM HNO ID: [id number] Author: PADDY Grewal Service: Social Work Author Type: Business Machine Mechanic Type: Care Mgt Progress Note Filed: 06/15/2021 11:49 AM Note Text: CARE MANAGEMENT PROGRESS NOTE SERVICE DATE: 06/15/2021 SERVICE TIME: 11:21 AM LOS: 0 days Patient told his nurse that he didn't have money to pay for prescription for clonodine for his high blood pressure. POLYSOM TECH provided education about $4 generic medication program at [facility] which covers this medication. POLYSOM TECH and KIT Armijo processed a 3 day indigent supply for this patient. Per pharmacy this is likely to take 4 hours. Note patient is waiting in ED waiting room for discharge indigent medications. SIGNATURE: PADDY Grewal PATIENT NAME: Hosea Alvarez DATE: June 15, 2021 TIME: 11:21 AM PAGER/CONTACT #: [phone] Normal [facility] CBC and Differentialon 06-15 Abs Baso <0.03 Normal <0.11 [facility] Abs Brown 0.31 k/uL Normal <0.87 [facility] Abs Neut 1.95 k/uL Normal 1.45-7.50 [facility] Absolute nRBC <0.01 Normal <0.01 [facility] Basophils/100 WBC (Bld) 0.3 % Normal [facility] DTYPE Auto Diff Normal [facility] Eosinophils (Bld) [#/Vol] 0.08 10*3/uL Normal <0.46 [facility] Eosinophils/100 WBC (Bld) 2.6 % Normal [facility] Erythrocyte distribution width (RBC) [Ratio] 13.1 % Normal 11.5-15.0 [facility] Hematocrit (Bld) [Volume fraction] 39.2 % Normal 39.0-51.0 [facility] Hemoglobin (Bld) [Mass/Vol] 12.8 g/dL Low 13.0-17.0 [facility] Lymphocytes (Bld) [#/Vol] 0.72 10*3/uL Low 1.00-4.00 [facility] Lymphocytes/100 WBC (Bld) 23.5 % Normal [facility] MCH 28.2 pG Normal 26.0-34.0 [facility] MCHC (RBC) [Mass/Vol] 32.7 g/dL Normal 30.5-36.0 [facility] MCV (RBC) [Entitic vol] 86.3 fL Normal 80.0-100.0 [facility] Monocytes/100 WBC (Bld) 10.1 % Normal [facility] Neutrophils/100 WBC (Bld) 63.5 % Normal [facility] NRBCs 0.0 /100 WBC Normal 0 [facility] Platelet mean volume (Bld) [Entitic vol] 11.1 fL Normal 9.0-12.7 [facility] Platelets (Bld) [#/Vol] 136 10*3/uL Low 150-400 [facility] Comment on above: [facility] RBC (Bld) [#/Vol] 4.54 10*6/uL Normal 4.20-6.00 [facility] WBC (Bld) [#/Vol] 3.07 10*3/uL Low 3.70-11.00 [facility] Abs Baso <0.03 Normal <0.11 [facility] Abs Brown 0.32 k/uL Normal <0.87 [facility] Abs Neut 2.30 k/uL Normal 1.45-7.50 [facility] Absolute nRBC <0.01 Normal <0.01 [facility] Basophils/100 WBC (Bld) 0.6 % Normal [facility] DTYPE Auto Diff Normal [facility] Eosinophils (Bld) [#/Vol] 0.09 10*3/uL Normal <0.46 [facility] Eosinophils/100 WBC (Bld) 2.5 % Normal [facility] Erythrocyte distribution width (RBC) [Ratio] 13.1 % Normal 11.5-15.0 [facility] Hematocrit (Bld) [Volume fraction] 38.1 % Low 39.0-51.0 [facility] Hemoglobin (Bld) [Mass/Vol] 12.5 g/dL Low 13.0-17.0 [facility] Lymphocytes (Bld) [#/Vol] 0.88 10*3/uL Low 1.00-4.00 [facility] Lymphocytes/100 WBC (Bld) 24.3 % Normal [facility] MCH 28.2 pG Normal 26.0-34.0 [facility] MCHC (RBC) [Mass/Vol] 32.8 g/dL Normal 30.5-36.0 [facility] MCV (RBC) [Entitic vol] 86.0 fL Normal 80.0-100.0 [facility] Monocytes/100 WBC (Bld) 8.8 % Normal [facility] Neutrophils/100 WBC (Bld) 63.8 % Normal [facility] NRBCs 0.0 /100 WBC Normal 0 [facility] Platelet mean volume (Bld) [Entitic vol] 10.9 fL Normal 9.0-12.7 [facility] Platelets (Bld) [#/Vol] 142 10*3/uL Low 150-400 [facility] RBC (Bld) [#/Vol] 4.43 10*6/uL Normal 4.20-6.00 [facility] WBC (Bld) [#/Vol] 3.62 10*3/uL Low 3.70-11.00 [facility] Comp Metabolic Panelon 06-15 Albumin [Mass/Vol] 4.3 g/dL Normal 3.9-4.9 [facility] ALP [Catalytic activity/Vol] 68 U/L Normal 38-113 [facility] ALT [Catalytic activity/Vol] 24 U/L Normal 10-54 [facility] Anion gap [Moles/Vol] 8 mmol/L Low 9-18 [facility] AST [Catalytic activity/Vol] 22 U/L Normal 14-40 [facility] Bilirubin [Mass/Vol] 0.4 mg/dL Normal 0.2-1.3 [facility] Calcium [Mass/Vol] 9.3 mg/dL Normal 8.5-10.2 [facility] Chloride [Moles/Vol] 102 mmol/L Normal 97-105 [facility] CO2 [Moles/Vol] 29 mmol/L Normal 22-33 [facility] Creatinine [Mass/Vol] 0.99 mg/dL Normal 0.73-1.22 [facility] eGFR- Amer. >60 Normal [facility] eGFR-All Other Races >60 Normal [facility] Comment on above: Result Comment: eGFR [...] GFR. Glucose [Mass/Vol] 101 mg/dL High 74-99 [facility] Potassium [Moles/Vol] 4.3 mmol/L Normal 3.7-5.1 [facility] Protein [Mass/Vol] 7.0 g/dL Normal 6.3-8.0 [facility] Sodium [Moles/Vol] 139 mmol/L Normal 136-144 [facility] Urea nitrogen [Mass/Vol] 12 mg/dL Normal 9-24 [facility] Albumin [Mass/Vol] 4.3 g/dL Normal 3.9-4.9 [facility] ALP [Catalytic activity/Vol] 67 U/L Normal 38-113 [facility] ALT [Catalytic activity/Vol] 23 U/L Normal 10-54 [facility] Anion gap [Moles/Vol] 10 mmol/L Normal 9-18 [facility] AST [Catalytic activity/Vol] 21 U/L Normal 14-40 [facility] Bilirubin [Mass/Vol] 0.2 mg/dL Normal 0.2-1.3 [facility] Calcium [Mass/Vol] 8.8 mg/dL Normal 8.5-10.2 [facility] Chloride [Moles/Vol] 103 mmol/L Normal 97-105 [facility] CO2 [Moles/Vol] 26 mmol/L Normal 22-33 [facility] Creatinine [Mass/Vol] 1.00 mg/dL Normal 0.73-1.22 [facility] eGFR- Amer. >60 Normal [facility] eGFR-All Other Races >60 Normal [facility] Comment on above: Result Comment: eGFR [...] GFR. Glucose [Mass/Vol] 114 mg/dL High 74-99 [facility] Potassium [Moles/Vol] 4.1 mmol/L Normal 3.7-5.1 [facility] Protein [Mass/Vol] 6.7 g/dL Normal 6.3-8.0 [facility] Sodium [Moles/Vol] 139 mmol/L Normal 136-144 [facility] Urea nitrogen [Mass/Vol] 13 mg/dL Normal 9-24 [facility] ED NOTEon 06-15-2021 ED NOTE HNO ID: [id number] Author: Kay Phillips RN Service: Critical Care Author Type: Registered Nurse Type: ED Notes Filed: 06/15/2021 7:26 AM Note Text: Pt presents to Er with c/c of back pain and hx of kidney stenosis. [facility] ED NOTE HNO ID: [id number] Author: Vita Guerrero RN Service: Nursing Author Type: Registered Nurse Type: ED Notes Filed: 06/15/2021 12:31 AM Note Text: Discharge instructions and follow ups reviewed with the pt. Pt verbalizes understanding. No further questions asked. Vitals stable. Pt departs ED in stable condition [facility] ED NOTE HNO ID: [id number] Author: Vita Guerrero RN Service: Nursing Author Type: Registered Nurse Type: ED Notes Filed: 06/14/2021 11:31 PM Note Text: Patient educated to stay in bed. Patient was walking around carrying a IV bag and pump. Patient has two side rails up. [facility] ED NOTE HNO ID: [id number] Author: Sena Elias RN Service: ? Author Type: Registered Nurse Type: ED Notes Filed: 06/14/2021 10:36 PM Note Text: Bed: ED-10 Expected date: 06/14/21 Expected time: Means of arrival: Comments: triage Normal [facility] ED PROV NOTEon 06-15-2021 ED PROV NOTE HNO ID: [id number] Author: Cheryl Jesus MD Service: Emergency Medicine Author Type: Physician Type: ED Provider Notes Filed: 06/15/2021 4:57 PM Note Text: ED Provider Note Patient Name: Hosea Alvarez SERVICE DATE: 06/15/21 History Patient presents with: Back Pain: hx of kidney stenosis Mr. Alvarez, 50-year-old male with a past medical history of hemorrhoids, hypertension, hypoglycemia, reported renal artery stenosis who is from [facility] and is currently homeless here in [place] who arrives to the emergency department with [...] was seen by the vascular surgeon and [place] and due to a normal renal function [...] was likely dehydrated. He was seen at [facility] earlier yesterday for the same thing. His [...] different systems across the various states of [place], [place], [place] and [place]. History provided by: Medical records [...] - Caffeine Rash Other reaction(s): Shakiness - [place] GI Upset, Rash, Vomiting Statused by Person: ?Imelda Meza.(T Carter2) on Statused by Person: ?SRAVANTHI MONGE([facility]) on Statused by Person: ?Tammy. Derrick(T Carter2) on Statused by Person: ?SRAVANTHI MONGE(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 Normal [facility] ED PROV NOTE HNO ID: [id number] Author: Santa Thurman, DO Service: ? Author [...] patient. He states he was seen at [facility] emergency department earlier today for the same. [...] - Caffeine Rash Other reaction(s): Shakiness - [place] GI Upset, Rash, Vomiting Statused by Person: ?Imelda Meza.(T Carter2) on Statused by Person: ?SRAVANTHI MONGE([facility]) on Statused by Person: ?Imelda Meza.(Altaf Carter2) on Statused by Person: ?SRAVANTHI MONGE(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 Normal [facility] Ethanolon 06-15-2021 Ethanol [Mass/Vol] mg/dL Normal <11 [facility] Magnesiumon 06-15-2021 Magnesium [Mass/Vol] 1.8 mg/dL Normal 1.7-2.3 [facility] Troponin Ton 06-15-2021 Troponin T <0.010 Normal 0.000-0.029 [facility] Urinalysis with Microscopico n 06-15-2021 Bilirubin, Urine Negative Normal Negative [facility] Clarity (U) Clear Normal Clear [facility] Color (U) Colorless Critically abnormal Yellow [facility] Glucose Ql (U) Negative Normal Negative [facility] Hemoglobin/Blood,Ur Negative Normal Negative [facility] Ketones Ql (U) Negative Normal Negative [facility] Leukest Negative Normal Negative [facility] Nitrite Ql (U) Negative Normal Negative [facility] pH (U) 6.0 [pH] Normal 5.0-8.0 [facility] Protein, Urine Negative Normal Negative [facility] RBC 0-3 Normal 0-3 [facility] Specific [place], Ur 1.007 Normal 1.005-1.030 [facility] Urine, Other FOR EAST USE ONLY SEE COMMENT Normal [facility] Comment on above: Result Comment: 1+ Mucous Urobilinogen (U) [Mass/Vol] Negative Normal Negative [facility] WBC 0-5 Normal 0-5 [facility] ACETAMINOPHENon 06-14-2021 Acetaminophen [Mass/Vol] ug/mL Normal 10.0 - 30.0 [facility] Comment on above: Performed By: #### C BCDF #### [facility] [address] [facility], [place] [id number] ALCOHOLon 06-14-2021 Ethanol [Mass/Vol] mg/dL Normal [facility] Comment on above: Result Comment: FOR MEDICAL USE ONLY. . REF VALUES <10 Performed By: #### A LC ####[facility] [place], [place] [id number] Acetaminophen Level, Serumon 06-14-2021 Acetaminophen [Mass/Vol] ug/mL [...] CASE MANAGEMon 06-14-2021 CASE MANAGEM HNO ID: [id number] Author: STONE Daugherty Service: Case Management Author Type: Business Machine Mechanic Type: Care Mgt Progress Note Filed: 06/14/2021 [...] medication. Patient stated that he came by [facility] for chief complaint of chest pain and hypertension. Sw met with patient to address his concern. Patient stated that he comes to be seen for high blood pressure, but is thinking of going to [facility] due to his wait time. Patient was requesting this parts data writer contact [facility] ER to see how long their [...] stated patient was requesting to speak with parts data writer. Sw met with patient to discuss concerns. [...] 14, 2021 TIME: 5:33 PM PAGER/CONTACT #: [phone] Normal [facility] CBC AND DIFFERENTIALon 06-14 % AUTOMATED IMMATURE GRAN 0.3 % Normal 0.0 - 0.9 [facility] Comment on above: Result Comment: Kath ture Granulocyte Count (IG) includes promyelocytes, myelocytes and metamyelocytes but does not include bands. Percent differential counts (%) should be interpreted in the context of the absolute cell counts (cells/L). Performed By: #### C [facility] ####[facility] [facility] [place], [place] [id number] Basophils (Bld) [#/Vol] 0.01 10*3/uL Normal 0.00 - 0.10 [facility] Comment on above: Performed By: #### C BCDF ####[facility] [facility], [place] [phone] Basophils/100 WBC (Bld) 0.3 % Normal 0.0 - 2.0 [facility] Comment on above: Performed By: #### C BCDF ####[facility] [facility], [place] [id number] Eosinophils (Bld) [#/Vol] 0.06 10*3/uL Normal 0.00 - 0.70 [facility] Comment on above: Performed By: #### C BCDF ####[address], [place] [id number] Eosinophils/100 WBC (Bld) 1.7 % Normal 0.0 - 6.0 [facility] Comment on above: Performed By: #### C BCDF ####[facility] [facility] [place] [phone] Erythrocyte distribution width (RBC) [Ratio] 13.1 % Normal 11.5 - 14.5 [facility] Comment on above: Performed By: #### C BCDF ####[address], [place] [id number] Hematocrit (Bld) [Volume fraction] 38.4 % Low 41.0 - 52.0 [facility] Comment on above: Performed By: #### C BCDF ####[facility] [facility] [place], [place] [phone] Hemoglobin (Bld) [Mass/Vol] 13.0 g/dL Low 13.5 - 17.5 [facility] Comment on above: Performed By: #### C BCDF ####[facility] [facility] [place], [place] [phone] Lymphocytes (Bld) [#/Vol] 0.68 10*3/uL Low 1.20 - 4.80 [facility] Comment on above: Performed By: #### C BCDF ####[facility] [facility] [place] [id number] Lymphocytes/100 WBC (Bld) 19.8 % Normal 13.0 - 44.0 [facility] Comment on above: Performed By: #### C BCDF ####[facility] [facility] [place] [phone] MCHC (RBC) [Mass/Vol] 33.9 g/dL Normal 32.0 - 36.0 [facility] Comment on above: Performed By: #### C BCDF ####[facility] [facility] [place] [phone] MCV (RBC) [Entitic vol] 82 fL Normal 80 - 100 [facility] Comment on above: Performed By: #### C BCDF ####[facility] [facility] [place] [phone] Monocytes (Bld) [#/Vol] 0.31 10*3/uL Normal 0.10 - 1.00 [facility] Comment on above: Performed By: #### C BCDF ####[place] [id number] [facility] [id number] Monocytes/100 WBC (Bld) 9.0 % Normal 2.0 - 10.0 [facility] Comment on above: Performed By: #### C BCDF ####[facility] [facility] [place] [phone] Neutrophils (Bld) [#/Vol] 2.36 10*3/uL Normal 1.20 - 7.70 [facility] Comment on above: Performed By: #### C BCDF ####[facility] [facility] [place] [phone] Neutrophils/100 WBC (Bld) 68.9 % Normal 40.0 - 80.0 [facility] Comment on above: Performed By: #### C BCDF ####[facility] [facility] [place] [phone] Platelets (Bld) [#/Vol] 142 10*3/uL Low 150 - 450 [facility] Comment on above: Performed By: #### C BCDF ####[facility] [facility] [place], [place] [phone] RBC 4.66 x10E12/L Normal 4.50 - 5.90 [facility] Comment on above: Performed By: #### C BCDF ####[facility] [facility] [place], [place] [phone] WBC (Bld) [#/Vol] 3.4 10*3/uL Low 4.4 - 11.3 [facility] Comment on above: Performed By: #### C BCDF ####[facility] [facility] [place] [phone] COMPREHENSIVE PANELon 2020 Albumin [Mass/Vol] 4.1 g/dL Normal 3.4 - 5.0 [facility] Comment on above: Performed By: #### U A #### [facility] [address] [facility] [place], [place] [phone] ALP [Catalytic activity/Vol] 52 U/L Normal 33 - 120 [facility] Comment on above: Performed By: #### U A #### [facility] [address] [facility] [place], [place] [id number] ALT [Catalytic activity/Vol] 21 U/L Normal 10 - 52 [facility] Comment on above: Result Comment: Yanni ents treated with Sulfasalazine may generate falsely decreased results for ALT. Performed By: #### U A #### [facility] [address] [facility] [place], [place] [phone] Anion gap [Moles/Vol] 11 mmol/L Normal 10 - 20 [facility] Comment on above: Performed By: #### U A #### [facility] [address] [facility] [place], [place] [phone] AST [Catalytic activity/Vol] 16 U/L Normal 9 - 39 [facility] Comment on above: Performed By: #### U A #### [facility] [address] [facility] [place] [id number] Bilirubin [Mass/Vol] 0.3 mg/dL Normal 0.0 - 1.2 [facility] Comment on above: Performed By: #### U A #### [place] [id number] [facility] [place], [place] [id number] Calcium [Mass/Vol] 8.9 mg/dL Normal 8.6 - 10.3 [facility] Comment on above: Performed By: #### U A #### [address] [place], [place] [id number] Chloride [Moles/Vol] 106 mmol/L Normal 98 - 107 [facility] Comment on above: Performed By: #### U A #### [address], [place] [id number] Creatinine [Mass/Vol] 0.99 mg/dL Normal 0.50 - 1.30 [facility] Comment on above: Performed By: #### U A #### [address] [place], [place] [id number] GFR- AM. >60 Normal >60 [facility] Comment on above: Result Comment: CALC ULATIONS OF ESTIMATED GFR ARE PERFORMED USING THE MDRD STUDY EQUATION FOR THE IDMS-TRACEABLE CREATININE METHODS. CLIN CHEM 2007;53:766-72 Performed By: #### U A #### [address] [place], [place] [id number] GFR-NON AM. >60 Normal >60 [facility] Comment on above: Performed By: #### U A #### [address] [place], [place] [phone] Glucose [Mass/Vol] 115 mg/dL High 74 - 99 [facility] Comment on above: Performed By: #### U A #### [address] [place], [place] [id number] HCO3 (Bld) [Moles/Vol] 25 mmol/L Normal 21 - 32 [facility] Comment on above: Performed By: #### U A #### [facility] [address] [facility], [place] [phone] Potassium [Moles/Vol] 4.3 mmol/L Normal 3.5 - 5.3 [facility] Comment on above: Performed By: #### U A #### [facility] [address] [facility], [place] [phone] Protein [Mass/Vol] 6.8 g/dL Normal 6.4 - 8.2 [facility] Comment on above: Performed By: #### U A #### [facility] [address] [facility], [place] [phone] Sodium [Moles/Vol] 138 mmol/L Normal 136 - 145 [facility] Comment on above: Performed By: #### U A #### [facility] [id number] [place] [address], [place] [id number] Urea nitrogen [Mass/Vol] 12 mg/dL Normal 6 - 23 [facility] Comment on above: Performed By: #### U A #### [facility] [address] [facility], [place] [phone] CORONAVIRUS 2019 BY PCRon SARS-CoV-2 (COVID-19) RNA TATI+probe Ql (Unsp spec) Not detected Normal Not Detected [facility] Comment on above: Result Comment: . This test has received FDA Emergency Use Authorization (EUA) and has been verified by [facility]. This test is only authorized for the duration of time that circumstances exist to justify the authorization of the emergency use of in vitro diagnostic tests for the detection of SARS-CoV-2 virus and/or diagnosis of COVID-19 infection under section 564(b)(1) of the Act, 21 U.S.C. 360bbb-3(b)(1), unless the authorization is terminated or revoked sooner. [facility] is certified under CLIA-88 as qualified to perform high complexity testing. Testing is performed in the [facility] laboratory located at [address] [place] [address], [place] [address]. SARS-CoV-2/Flu/RSV Multiplex Test: Fact sheet for providers: https://www.fda.gov/media/847913/download Fact sheet for patients: https://www.fda.gov/media/044571/download Performed By: #### C OV19 ####[facility] [facility] [phone] Lab Specimen Source Nasal, Nasopharyngeal Normal [facility] Comment on above: Performed By: #### C OV19 ####[facility] [facility] [phone] CREATINE KINASEon 06-14-2021 CK [Catalytic activity/Vol] 94 U/L Normal 0 - 325 [facility] Comment on above: Performed By: #### C K ####[facility] [facility] [phone] Complete Blood Count + Diffe rentialon 06-14-2021 Basophils/100 WBC (Bld) 0.3 % 0.0 - 2.[address] [facility] [address] Work Phone: [phone] Erythrocyte distribution width (RBC) [Ratio] 13.1 % See Below [address] Work Phone: [phone] Comment on above: Reference Range: 11. 5 - 14.5 Hematocrit (Bld) [Volume fraction] 38.4 % below low threshold See Below [address] Work Phone: [phone] Comment on above: Reference Range: 41. 0 - 52.0 Hemoglobin (Bld) [Mass/Vol] 13.0 g/dL below low threshold See Below [address] Work Phone: [phone] Comment on above: Reference Range: 13. 5 - 17.5 Lymphocytes/100 WBC (Bld) 19.8 % See Below [address] Work Phone: [phone] Comment on above: Reference Range: 13. 0 - 44.0 MCHC (RBC) [Mass/Vol] 33.9 g/dL See Below [address] Work Phone: [phone] Comment on above: Reference Range: 32. 0 - 36.0 MCV (RBC) [Entitic vol] 82 fL 80 - [address] Work Phone: [phone] Monocytes/100 WBC (Bld) 9.0 % 2.0 - 10.[address] [facility] [address] Work Phone: [phone] Neutrophils/100 WBC (Bld) 68.9 % See Below [address] Work Phone: [phone] Comment on above: Reference Range: 40. 0 - 80.0 Platelets (Bld) [#/Vol] 142 10*3/uL below low threshold 150 - [address] [facility] Work Phone: [phone] RBC (Bld) [#/Vol] 4.66 {x10E12/L} See Below [address] Work Phone: [phone] Comment on above: Reference Range: 4.5 0 - 5.90 WBC (Bld) [#/Vol] 3.4 10*3/uL below low threshold 4.4 - 11.[address] [facility] Work Phone: [phone] Complete Blood Count + Differential 0.01 {x10E9/L} See Below [address] Work Phone: [phone] Comment on above: Reference Range: 0.0 0 - 0.10 Complete Blood Count + Differential 0.06 {x10E9/L} See Below [address] Work Phone: [phone] Comment on above: Reference Range: 0.0 0 - 0.70 Complete Blood Count + Differential 0.31 {x10E9/L} See Below [address] Work Phone: [phone] Comment on above: Reference Range: 0.1 0 - 1.00 Complete Blood Count + Differential 0.68 {x10E9/L} below low threshold See Below [address] Work Phone: [phone] Comment on above: Reference Range: 1.2 [...] and has been verified by [facility]. This test is only authorized for the duration of time that circumstances exist to justify the authorization of the emergency use of in vitro diagnostic tests for the detection of SARS-CoV-2 virus and/or diagnosis of COVID-19 infection under section 564(b)(1) of the Act, 21 U.S.C. 360bbb-3(b)(1), unless the authorization is terminated or revoked sooner. [facility] is certified under CLIA-88 as qualified to perform high complexity testing. Testing is performed in the [facility] laboratory located at [address] [place] [address], [place] [address]. SARS-CoV-2/Flu/RSV Multiplex Test: Fact sheet for providers: https://www.fda.gov/media/331357/downloadFact sheet for patients: https://www.fda.gov/media/996702/download Covid 19 Resultson SARS-CoV-2 (COVID-19) RNA TATI+probe [...] You may also be contacted by the [facility] to see if any of your close [...] or Naproxen (Aleve) can also be used. Jete-cva-pogvnrd cough and cold medicines can be used according to the instructions on the package. Some apff-jpf-bykbvhq medicines also contain acetaminophen. Make sure you [...] water are not available, use alcohol-based hand transit worker. Avoid touching your eyes, nose, and mouth [...] 24 guerline (more content not included)... Normal [facility] Creatine Kinase, Levelon CK [Catalytic activity/Vol] 94 U/L 0 - [address] [facility] [address] Work Phone: DRUG SCREEN,URINEon 06-14-20 21 AMPHETAMINE SCREEN,U Negative Normal NEGATIVE [facility] Comment on above: Result Comment: CUTO FF LEVEL: 500 NG/ML Cross-reactivity has been reported with high concentrations of the following drugs: buproprion, chloroquine, chlorpromazine, ephedrine, mephentermine, fenfluramine, phentermine, phenylpropanolamine, pseudoephedrine, and propranolol. Performed By: #### C BCDF #### [place] [id number] [facility], [place] [phone] BARBITURATES SCREEN,U Negative Normal NEGATIVE [facility] Comment on above: Result Comment: CUTO FF LEVEL: 200 NG/ML Performed By: #### C BCDF #### [address], [place] [phone] BENZODIAZEPINES SCREEN,U Negative Normal NEGATIVE [facility] Comment on above: Result Comment: CUTO FF LEVEL: 200 NG/ML Performed By: #### C BCDF #### [address], [place] [id number] CANNABINOIDS SCREEN,U Negative Normal NEGATIVE [facility] Comment on above: Result Comment: CUTO FF LEVEL: 50 NG/ML Performed By: #### C BCDF #### [address], [place] [phone] COCAINE METABOLITE SCREEN,U Negative Normal NEGATIVE [facility] Comment on above: Result Comment: CUTO FF LEVEL: 150 NG/ML Performed By: #### C BCDF #### [place] [id number] [facility], [place] [phone] DRUG SCREEN COMMENT SEE BELOW Normal [facility] Comment on above: Result Comment: Drug screen results are presumptive and should not be used to assess compliance with prescribed medication. Contact the performing [facility] laboratory to add-on definitive confirmatory testing [...] directors. Performed By: #### C BCDF #### [address], [place] [phone] FENTANYL SCREEN,URINE Negative Normal NEGATIVE [facility] Comment on above: Result Comment: CUTO FF LEVEL: 1 NG/ML Performed By: #### C BCDF #### [address], [place] [phone] METHADONE SCREEN,U Negative Normal NEGATIVE [facility] Comment on above: Result Comment: CUTO FF LEVEL: 150 NG/ML The metabolite X-ifdiu-nenahniurfanep (LAAM) is not detected by this method in concentrations that would be found in the urine of patients on LAAM therapy. Performed By: #### C BCDF #### [address], [place] [id number] OPIATES SCREEN,U Negative Normal NEGATIVE [facility] Comment on above: Result Comment: CUTO FF LEVEL: 300 NG/ML The opiate screen does not detect fentanyl, meperidine, or tramadol. Oxycodone is not consistently detected (refer to Oxycodone Screen, Urine result). Performed By: #### C BCDF #### [address], [place] [id number] OXYCODONE SCREEN,U Negative Normal NEGATIVE [facility] Comment on above: Result Comment: CUTO FF LEVEL: 100 NG/ML This test will accurately detect both oxycodone and oxymorphone. Performed By: #### C BCDF #### [address], [place] [id number] PCP SCREEN,U Negative Normal NEGATIVE [facility] Comment on above: Result Comment: CUTO FF LEVEL: 25 NG/ML Cross-reactivity has been reported with dextromethorphan. Performed By: #### C [facility] #### [facility] [id number] [place] [id number] ED NOTEon 06-14-2021 ED NOTE HNO ID: [id number] Author: Aneudy Pittman RN Service: ? Author Type: Registered Nurse Type: ED Notes Filed: 06/14/2021 5:19 PM Note Text: Pt requesting to have his BP checked in both arms. He states he has an aneurysm. 149/99 left arm, 149/95 right arm Normal [facility] ED NOTE HNO ID: [id number] Author: Yang Gonzalez Medic Service: ? Author Type: Edger Operator and Aids Counselor Type: ED Notes Filed: 06/14/2021 2:38 PM Note Text: Attempted blood draw x 2, unsuccessful. Normal [facility] ED NOTE HNO ID: [id number] Author: Rhoda Diaz Service: ? Author Type: Edger Operator and Aids Counselor Type: ED Notes Filed: 06/14/2021 2:41 PM Note Text: Pt presents to ED with hypertension and intermittent chest pain, pt is a chronic alcoholic and normally gets hypertensive when he drinks, pt states last drink was last night, pt was seen at [facility] earlier today and left, states that he is red flagged there (psych/substance abuse), pain currently 4/10, pt normotensive on assessment (120/85), states that he feels dehydrated currently, denies any recent illness or other complaints at this time. Normal [facility] Laboratory - Chemistry and C hemistry [...] [address] Work Phone: [phone] AST With P-5'-P [Catalytic activity/Vol] 16 U/L 9 - [address] [facility] [address] Work Phone: [phone] Bilirubin [Mass/Vol] 0.3 mg/dL 0.0 - 1.[address] [facility] Work Phone: [phone] Calcium [Mass/Vol] 8.9 mg/dL 8.6 - 10.[address] Work Phone: [phone] Chloride [Moles/Vol] 106 mmol/L 98 - [address] [facility] [address] Work Phone: [phone] CO2 [Moles/Vol] 25 mmol/L 21 - [address] [facility] [address] Work Phone: [phone] Creatinine [Mass/Vol] 0.99 mg/dL See Below [address] Work Phone: [phone] Comment on above: Reference Range: 0.5 0 - 1.30 Glucose [Mass/Vol] 115 mg/dL above high threshold 74 - [address] [facility] [address] Work Phone: [phone] Potassium [Moles/Vol] 4.3 mmol/L 3.5 - 5.[address] Work Phone: [phone] Protein [Mass/Vol] 6.8 g/dL 6.4 - 8.[address] Work Phone: [phone] Sodium [Moles/Vol] 138 mmol/L 136 - [address] Work Phone: [phone] Urea nitrogen [Mass/Vol] 12 mg/dL 6 - [address] [facility] [address] Work Phone: [phone] Laboratory - Drug toxicology on 06-14-2021 Amphetamines Screen Ql (U) Negative NEGATIVE [address] [facility] [address] Work Phone: [phone] Comment on above: CUTOFF LEVEL: 500 [...] CUTOFF LEVEL: 150 NG /ML The metabolite B-jloms-xwamzmmntfsnok (LAAM) is not detected by this method [...] compliance with prescribed medication. Contact the performing [facility] laboratory to add-on definitive confirmatory testing [...] to the laboratory medical directors. >60 >60 [facility] [address] Work Phone: Comment on above: CALCULATIONS OF NIKOLE MATED GFR ARE PERFORMED USING THE MDRD STUDY EQUATION FOR THE IDMS-TRACEABLE CREATININE METHODS. CLIN CHEM 2007;53:766-72 Provider Note - ED v3on 05-25 Provider Note - ED v3 Provider Note: Chart Review: ED NOTES ED NOTES: Hosea Padilla is a 50 year old male who presents to [facility] ED for right chest pressure and high [...] edema or pain. Pt came to the [facility] ED yesterday on 06/13 for similar symptoms [...] of mot (more content not included)... Normal [facility] Risk Screen - Adult Emergenc yon 06-14-2021 [...] Learning Preferencesverbal instruction Cultural Considerationsnone Developmental Considerationsnone Presybeterian Considerationsnone Learning Assessment (Other Learner): Learning Assessment (Other Learner): Other learner availableno Pressure Injury/TB/Substance: Pressure Injury: Pressure Injury Present on Admissionno Do you have a coughno Smoking Statusnever smoker (1) Admission Risk Screen: Significant IndicatorsComplete CAGE: CAGE: Is this an injured patient at a Trauma Center ([facility] /[place]): no Electronic Signatures: Tamika Messina (MANAS) (Signed 14-Jun-2021 07:37) Authored: Preferred Language, Advanced Directives, Family Violence Adult, Learning Assessment (Patient), Learning Assessment (Other Learner), Pressure Injury/TB/Substance, Pressure Injury, CAGE Last Updated: 14-Jun-2021 07:37 by Tamika Messina (MANAS) References: 1. Data Referenced From Risk Screen - Adult Emergency 13-Jun-2021 11:54 Normal [facility] SALICYLATEon 06-14-2021 SALICYLATE <3 Normal 4 - 20 [facility] Comment on above: Performed By: #### S ALIC ####[facility] [place], [place] [id number] TROPONIN Ion 06-14-2021 Troponin I.cardiac [Mass/Vol] ng/mL Normal 0.00 - 0.03 [facility] Comment on above: Result Comment: LESS THAN [...] is performed using different testing methodology at [facility] than at [facility]. Direct result comparisons should only be made within the same method. Performed By: #### U A #### [facility] [address] [place], [place] [phone] TSHon 06-14-2021 TSH Qn 1.03 m[IU]/L Normal 0.44 - 3.98 [facility] Comment on above: Result Comment: TSH testing is performed using different testing methodology at [facility] than at [facility]. Direct result comparisons should only be made within the same method. Performed By: #### T SH2 ####[facility] [place], [place] [id number] TSH - Thyroid Stimulating Ho tiffany, Serumon 06-14-2021 TSH Qn 1.03 m[IU]/L See Below [address] Work Phone: Comment on above: Reference Range: 0.4 4 - 3.98 TSH testing is performed using different testing methodology at [facility] than at other [facility]. Direct result comparisons should only be made [...] BMI (kg/m2): 30.616 Calculated BSA (m2) 2.00 [place] Coma Scale: Best Eye Response: (E4) spontaneous [...] 14-Jun-2021 07:37 by Tamika Messina (MANAS) Normal [facility] Troponin I, Serumon 06-14-20 21 Troponin I.cardiac [...] is performed using different testing methodology at [facility] than at other [facility]. Direct result comparisons should only be made within the same method. URINALYSISon 06-14-2021 Appearance (U) CLEAR Normal CLEAR [facility] Comment on above: Performed By: #### U A ####[facility] [place], [place] [phone] Bilirubin Ql (U) Negative Normal NEGATIVE [facility] Comment on above: Performed By: #### U A ####[facility] [place], [place] [phone] Color (U) STRAW Normal STRAW,YELLOW [facility] Comment on above: Performed By: #### U A ####[facility] [facility] [place], [place] [phone] Glucose Ql (U) Negative Normal NEGATIVE [facility] Comment on above: Performed By: #### U A ####[facility] [facility] [place] [phone] Hemoglobin Ql (U) Negative Normal NEGATIVE [facility] Comment on above: Performed By: #### U A ####[facility] [facility] [place], [place] [phone] Ketones Ql (U) Negative Normal NEGATIVE [facility] Comment on above: Performed By: #### U A ####[facility] [facility] [place] [phone] Leukocyte esterase Test strip Ql (U) Negative Normal NEGATIVE [facility] Comment on above: Performed By: #### U A ####[facility] [facility] [phone] Nitrite Ql (U) Negative Normal NEGATIVE [facility] Comment on above: Performed By: #### U A ####[facility] [facility] [place] [phone] pH (U) 5.0 [pH] Normal 5.0 - 8.0 [facility] Comment on above: Performed By: #### U A ####[facility] [facility], [place] [phone] Protein Ql (U) Negative Normal NEGATIVE [facility] Comment on above: Performed By: #### U A ####[facility] [facility] [place] [phone] Specific gravity (U) [Rel density] 1.003 Low 1.005 - 1.035 [facility] Comment on above: Performed By: #### U A ####[facility] [facility] [place] [phone] Urobilinogen (U) [Mass/Vol] mg/dL Normal 0.0 - 1.9 [facility] Comment on above: Performed By: #### U A ####[facility] [place], [place] [phone] Urinalysison 06-14-2021 Color (U) STRAW See Below [address] Work Phone: [phone] Comment on above: Reference Range: STR AW,YELLOW Glucose Ql (U) Negative NEGATIVE [facility] [facility] [address] Work Phone: [phone] Ketones Ql (U) Negative NEGATIVE [facility] [facility] [address] Work Phone: [phone] Leukocyte esterase Test strip Ql (U) Negative NEGATIVE [address] Work Phone: [phone] pH (U) 5.0 [pH] 5.0 - 8.[address] Work Phone: [phone] Protein (U) [Mass/Vol] Negative NEGATIVE [address] Work Phone: [phone] RBC (U) [#/Vol] Negative NEGATIVE [address] Work Phone: [phone] Specific gravity (U) [Rel density] 1.003 1 below low threshold See Below [address] Work Phone: [phone] Comment on above: Reference Range: 1.0 05 - 1.035 Urinalysis Negative NEGATIVE [address] Work Phone: [phone] Comment on above: CUTOFF LEVEL: 1 NG/M L Urinalysis <2.0 0.0 - 1.[address] Work Phone: [phone] Urinalysis CLEAR CLEAR [address] Work Phone: [phone] Discharge Planning [id number] 06-13-2021 Discharge Planning Note2 Discharge Planning: Anticipated Discharge [id number] Discharge Planning 06-13-21 4465 DAVID was asked by front lobby car spotter to come to the front lobby as someone was requesting to see SW - pt had already been d/c from the ED. DAVID is familiar with pt from previous ED visits in which pt has repeatedly needed redirection to appropriate resources for insurance, case management, appropriate medical treatment, etc. Pt has a hx of needing encouragement form security to leave [facility]. Pt has a hx of homelessness and PTSD, says he goes back and forth between [place] and [place]. Pt is well aware of area resources and knows how to access them. Pt began conversation by lamenting that records aren't easily shared between [facility] and . He named several people he has talked to about his concerns and then volunteered to this parts data writer that he does have a CM thru [facility], Adrianne Davis who has been making some appts for him. Pt was asked what he said needed help with today. He said he that he is trying to move an endoscopy appt from the to tomorrow. Pt said that he cannot make the appt on the because of matters he needs to take care of in [place], [place] regarding getting a stimulus check cashed. Pt said he has been trying to get thru to the appt line but has had no luck leaving messages - pt asked if this social media intern had any other options or people she knew to help him. DAVID researched endoscopy scheduling on the website and informed him that the [phone] is the only option for scheduling. Pt assented, declined to move [facility] around so he could make his 06/21 appt. Pt offered area in front lobby to charge his phone while making call. Pt did say he planned to leave the lobby by 1:15 pm. Home Appliance Washing Machine Mechanic informed. Merissa Acevedo [facility] Assessment: Discharge Planning Assessment [id number] Electronic Signatures: Merissa Acevedo) (Signed 14-Jun-2021 10:47) Authored: Discharge Planning, Assessment Last Updated: 14-Jun-2021 10:47 by Merissa Acevedo) [facility] Provider Note - ED v2on 05-25 Provider [...] history of (more content not included)... [facility] Risk Screen - Adult Emergenc yon 06-13-2021 [...] Learning Preferencesverbal instruction Cultural Considerationsnone Developmental Considerationsnone Presybeterian Considerationsnone Learning Assessment (Other Learner): Learning Assessment (Other Learner): Other learner availableno Pressure Injury/TB/Substance: Pressure Injury: Pressure Injury Present on Admissionno Do you have a coughno Smoking Statusnever smoker Admission Risk Screen: Significant IndicatorsComplete CAGE: CAGE: Is this an injured patient at a Trauma Center ([facility]): no Electronic Signatures: Kasey Campos (BROOKLYNN) (Signed 13-Jun-2021 11:54) Authored: Preferred Language, Advanced Directives, Family Violence Adult, Learning Assessment (Patient), Learning Assessment (Other Learner), Pressure Injury/TB/Substance, Pressure Injury, CAGE Last Updated: 13-Jun-2021 11:54 by Kasey Campos (BROOKLYNN) [facility] Triage - EDon 06-13-2021 Triage - ED [...] of Arrival: ambulance Agency: [facility] From: home CHIEF COMPLAINT HOSEA ALVAREZ [...] BMI (kg/m2): 30.616 Calculated BSA (m2) 2.00 [place] Coma Scale: Best Eye Response: (E4) spontaneous Best Motor Response: (M6) obeys commands Best Verbal Response: (V5) oriented [place] Score: 15 Allergies: yes Patient has homicidal [...] Last Updated: 13-Jun-2021 11:53 by Kasey Campos) [facility] Laboratory - Chemistry and C hemistry - challengeon 06-12-2021 Bilirubin Ql (U) Bili NEGATIVE (NEG ) [employer] pH (U) Urine pH 5.0 (4.6-8.0 ) 4.6 - 8.0 L Specific gravity (U) [Rel density] Urine Sp [place] 1.009 (1.005-1.030 ) 1.005 - 1.030 [facility] Troponin T.cardiac [Mass/Vol] HS Troponin T,Gen 5 [...] until 8 hours following last biotin administration. [employer] Urobilinogen Ql (U) Uro NORMAL MG/DL (0- 1.0 MG/DL) 0 - 1.0 MG/DL [employer] Anion gap [Moles/Vol] Anion Gap 14 MMOL/ L (0-19 MMOL/L) 0 - 19 MMOL/L [employer] Calcium [Mass/Vol] Calcium 8.7 MG/DL (8.5-10.4 MG/DL) 8.5 - 10.4 MG/DL [employer] Chloride [Moles/Vol] Chloride 103 MMOL/L (97-107 MMOL/L) 97 - 107 MMOL/L [employer] CO2 [Moles/Vol] Carbon Dioxide 19 MM OL/L L (24-31 MMOL/L) Low 24 - 31 MMOL/L [facility] Creatinine [Mass/Vol] Creatinine R 0.9 M G/DL (0.4-1.6 MG/DL) 0.4 - 1.6 MG/DL [facility] GFR/1.73 sq M.predicted MDRD (S/P/Bld) [Vol rate/Area] EGFR 95 mL/min/1.73 m2 (Reference Range: not available) GFR ml/min/1.73m2 Stage ----- 90 1 60-89 2 30-59 3 15-29 4 <15 5 For -Americans, multiply EGFR result by 1.210 Calculation not validated for patients under 18 years of age. Performed at [address] [address] [facility] Glucose [Mass/Vol] Glucose 89 MG/DL (65 -99 MG/DL) 65 - 99 MG/DL [facility] Potassium [Moles/Vol] Potassium R 4.2 MM OL/L (3.4-5.1 MMOL/L) 3.4 - 5.1 MMOL/L [facility] Sodium [Moles/Vol] Sodium 136 MMOL/L (133-145 MMOL/L) 133 - 145 MMOL/L [facility] Troponin T.cardiac [Mass/Vol] HS Troponin T,Gen 5 [...] until 8 hours following last biotin administration. [facility] Urea nitrogen [Mass/Vol] BUN 17 MG/DL (8-25 MG/DL) 8 - 25 MG/DL [facility] Urea nitrogen/Creatinine [Mass ratio] BUN Creatinine Ratio 18.9 RATIO (8-21 RATIO) 8 - 21 RATIO [facility] Laboratory - Coagulationon 0 06-12-2021 Fibrin D-dimer [...] IN PATIENTS RECEIVING ANTI-COAGULATION THERAPY. Performed at [address] [address] 0.19 - 0.50 MG/L FEU [facility] Laboratory - Hematology and Cell countson 06-12-2021 Hemoglobin Ql (U) Blood NEGATIVE (NEG ) [facility] Basophils (Bld) [#/Vol] Abs Baso 0.01 K/UL (0.00-0.22 K/UL) 0.00 - 0.22 K/UL [facility] Basophils/100 WBC (Bld) Basophil 0.30 % (0-1 %) 0 - 1 % [facility] Differential cell count method Nom (Bld) Diff Type AUTO DIFF (Reference Range: not available) [facility] Eosinophils (Bld) [#/Vol] Abs Eos 0.07 K/UL [...] (13.5-16.5 GM/DL) Low 13.5 - 16.5 GM/DL [facility] Immature granulocytes (Bld) [#/Vol] Abs Imm Neut 0.01 K/UL (0.0-0.1 K/UL) 0.0 - 0.1 K/UL S Lymphocytes (Bld) [#/Vol] Abs Lymph 0.83 K/UL L (1.2-3.2 K/UL) Low 1.2 - 3.2 K/UL [facility] Lymphocytes/100 WBC (Bld) Lymphocyte 26.10 % (20-40 %) 20 - 40 % S MCH (RBC) [Entitic mass] MCH 28.3 PG (26-34 PG) 26 - 34 PG S MCHC (RBC) [Mass/Vol] MCHC 33.1 % (31-37 %) 31 - 37 % S MCV (RBC) [Entitic vol] MCV 85.4 FL (80-100 FL) 80 - 100 FL S Monocytes (Bld) [#/Vol] Abs Brown 0.32 K/UL (0-0.8 K/UL) 0 - 0.8 K/UL [facility] Monocytes/100 WBC (Bld) Monocyte 10.10 % H (0-8 %) High 0 - 8 % S Neutrophils (Bld) [#/Vol] Abs.Neut.Calculated 1.94 K/UL (Reference Range: not available) Performed at [address] [address] [facility] Neutrophils (Bld) [#/Vol] Abs Neut 1.94 K/UL (1.8-7.7 K/UL) 1.8 - 7.7 K/UL [facility] Neutrophils.immature/ 100 WBC (Bld) Immature Neut % 0.30 % (0.0-1.0 %) 0.0 - 1.0 % [facility] Nucleated RBC/100 WBC (Bld) [Ratio] NRBCs 0 /100 WBC (0 /100 WBC) [facility] Platelet mean volume (Bld) [Entitic vol] MPV 11.6 CU (7.0-12.6 CU) 7.0 - 12.6 CU [facility] Platelets (Bld) [#/Vol] PLT 144 K/UL L (150-450 K/UL) Low 150 - 450 K/UL [facility] RBC (Bld) [#/Vol] RBC 4.60 M/UL (4.5-5 .5 M/UL) 4.5 - 5.5 M/UL [facility] Segmented neutrophils/100 WBC (Bld) Granulocyte 61.00 % (50-70 %) 50 - 70 % [facility] WBC (Bld) [#/Vol] WBC 3.2 K/UL L (4.5- 11.0 K/UL) Low 4.5 - 11.0 K/UL [facility] Laboratory - Specimen inform ationon 06-12-2021 Clarity (U) Urine Clarity CLEAR (Reference Range: not available) [facility] Color (U) Urin color COLORLESS (Reference Range: not available) [facility] Laboratory - Urinalysison Bacteria Auto Ql (U) Bacteria NEGATIVE (Reference Range: not available) [facility] Epithelial cells.squamous Auto Ql (U) Urine squamous epi NONE SEEN /HPF (Reference Range: not available) [facility] Glucose Auto test strip (U) [Mass/Vol] Gluc NEGATIVE mg/dL (NEG mg/dL) [facility] Hemoglobin Auto test strip Ql (U) RBC NONE SEEN /HPF (0-3 /HPF) 0 - 3 /HPF [facility] Hyaline casts Auto Ql (U) Urine hyaline cast NONE SEEN /LPF (Reference Range: not available) [facility] Ketones Auto test strip Ql (U) Urine Ketone TRACE A (NEG ) Abnormal [facility] Leukocyte esterase Auto test strip Ql (U) Leuk NEGATIVE (NEG ) [facility] Nitrite Auto test strip Ql (U) Nit NEGATIVE (NEG ) [facility] Protein (U) [Mass/Vol] Prot NEGATIVE mg/dL (NEG mg/dL) [facility] WBC Auto (Urine sed) [#/Area] WBC NONE SEEN /HPF (0-3 /HPF) 0 - 3 /HPF [facility] No Panel Informationon 06-12 HS Troponin T Delta 0 (0-4 ) Performed at [address] [address] 0 - 4 [facility] Microscopic AUTOMATI C MICROSCOPIC URINES (Reference Range: not available) [facility] Reflex to Urine Cult ure CULTURE NOT INDICATED Performed at [address] [address] (Reference Range: not available) [facility] HS Troponin T Delta No previous result Performed at [address] [address] (0-4 ) 0 - 4 S BNPon 06-07-2021 Natriuretic peptide B (Bld) [Mass/Vol] 30 pg/mL Normal 0 - 99 [facility] Comment on above: Result Comment: . <1 00 pg/mL - Heart failure unlikely 100-299 pg/mL - Intermediate probability of acute heart . failure exacerbation. Correlate with clinical . context and patient history. >=300 pg/mL - Heart Failure likely. Correlate with clinical . context and patient history. BNP testing is performed using different testing methodology at [facility] than at [facility]. Direct result comparisons should only be made within the same method. Performed By: #### B NP2 #### [address] [address] CBC AND DIFFERENTIALon 06-07 % AUTOMATED IMMATURE GRAN 0.3 % Normal 0.0 - 0.9 [facility] Comment on above: Result Comment: Kath ture Granulocyte Count (IG) includes promyelocytes, myelocytes and metamyelocytes but does not include bands. Percent differential counts (%) should be interpreted in the context of the absolute cell counts (cells/L). Performed By: #### C BCDF #### [address] [address] Basophils (Bld) [#/Vol] 0.02 10*3/uL Normal 0.00 - 0.10 [facility] Comment on above: Performed By: #### C BCDF #### [address] [address] Eosinophils (Bld) [#/Vol] 0.09 10*3/uL Normal 0.00 - 0.70 [facility] Comment on above: Performed By: #### C BCDF #### [address] [address] Eosinophils/100 WBC (Bld) 2.7 % Normal 0.0 - 6.0 [facility] Comment on above: Performed By: #### C BCDF #### [facility] [address] [place] [address] Lymphocytes (Bld) [#/Vol] 0.78 10*3/uL Low 1.20 - 4.80 [facility] Comment on above: Performed By: #### C BCDF #### [address] [address] Monocytes (Bld) [#/Vol] 0.44 10*3/uL Normal 0.10 - 1.00 [facility] Comment on above: Performed By: #### C BCDF #### [address] [address] Neutrophils (Bld) [#/Vol] 1.99 10*3/uL Normal 1.20 - 7.70 [facility] Comment on above: Performed By: #### C BCDF #### [address] [address] RBC 4.89 x10E12/L Normal 4.50 - 5.90 [facility] Comment on above: Performed By: #### C BCDF #### [address] [address] CHEST 1 VIEWon 06-07-2021 CHEST 1 VIEW STUDY: Chest Radiograph; 06/07/2021 8:40AM INDICATION: Chest pain. COMPARISON: 06/02/2021 XR Chest. ACCESSION NUMBER(S): [id number] ORDERING CLINICIAN: GRUPO SOUSA DO TECHNIQUE: Frontal chest was obtained at 09:16 hours. FINDINGS: CARDIOMEDIASTINAL SILHOUETTE: The heart is enlarged. LUNGS: Lungs are clear. ABDOMEN: No remarkable upper abdominal findings. BONES: No acute osseous changes. IMPRESSION: Cardiomegaly. No acute cardiopulmonary abnormality. Signed by Karson White MD Electronically signed by: KARSON WHITE MD Normal [facility] COMPREHENSIVE PANELon 2020 Albumin [Mass/Vol] 4.3 g/dL Normal 3.4 - 5.0 [facility] Comment on above: Performed By: #### C MP #### [address] [address] ALP [Catalytic activity/Vol] 56 U/L 33 - [address] Work Phone: [phone] Comment on above: Performed By: #### C MP #### [address] [address] ALT [Catalytic activity/Vol] 26 U/L Normal 10 - 52 [facility] Comment on above: Result Comment: Yanni ents treated with Sulfasalazine may generate falsely decreased results for ALT. Performed By: #### C MP #### [address] [address] Anion gap [Moles/Vol] 12 mmol/L 10 - [address] Work Phone: [phone] Comment on above: Performed By: #### C MP #### [address] [address] AST [Catalytic activity/Vol] 20 U/L Normal 9 - 39 [facility] Comment on above: Performed By: #### C MP #### [address] [address] Bilirubin [Mass/Vol] 0.4 mg/dL 0.0 - 1.[address] Work Phone: [phone] Comment on above: Performed By: #### C MP #### [address] [address] Calcium [Mass/Vol] 9.4 mg/dL 8.6 - 10.[address] Work Phone: [phone] Comment on above: Performed By: #### C MP #### [address] [address] Chloride [Moles/Vol] 101 mmol/L 98 - [address] Work Phone: [phone] Comment on above: Performed By: #### C MP #### [address] [address] Creatinine [Mass/Vol] 0.97 mg/dL See Below [address] Work Phone: Comment on above: Reference Range: 0.5 0 - 1.30 Performed By: #### C MP #### [address] [address] GFR- AM. >60 Normal >60 [facility] Comment on above: Result Comment: CALC ULATIONS OF ESTIMATED GFR ARE PERFORMED USING THE MDRD STUDY EQUATION FOR THE IDMS-TRACEABLE CREATININE METHODS. CLIN CHEM 2007;53:766-72 Performed By: #### C MP #### [address] [address] GFR-NON AM. >60 Normal >60 [facility] Comment on above: Performed By: #### C MP #### [address] [address] Glucose [Mass/Vol] 103 mg/dL above high threshold 74 - [address] Work Phone: Comment on above: Performed By: #### C MP #### [address] [address] HCO3 (Bld) [Moles/Vol] 26 mmol/L Normal 21 - 32 [facility] Comment on above: Performed By: #### C MP #### [address] [address] Potassium [Moles/Vol] 4.0 mmol/L 3.5 - 5.[address] Work Phone: Comment on above: Performed By: #### C MP #### [address] [address] Protein [Mass/Vol] 7.5 g/dL 6.4 - 8.[address] Work Phone: Comment on above: Performed By: #### C MP #### [address] [address] Sodium [Moles/Vol] 135 mmol/L below low threshold 136 - [address] Work Phone: Comment on above: Performed By: #### C MP #### [place] [address] Urea nitrogen [Mass/Vol] 21 mg/dL 6 - [address] Work Phone: Comment on above: Performed By: #### C MP #### [place] [address] CORONAVIRUS 2019 BY PCRon SARS-CoV-2 (COVID-19) RNA TATI+probe Ql (Unsp spec) Not detected Normal Not Detected [facility] Comment on above: Result Comment: . This test has received [facility] Emergency Use Authorization (EUA) and has been verified by [facility]. This test is only authorized for the duration of time that circumstances exist to justify the authorization of the emergency use of in vitro diagnostic tests for the detection of SARS-CoV-2 virus and/or diagnosis of COVID-19 infection under section 564(b)(1) of the Act, 21 U.S.C. 360bbb-3(b)(1), unless the authorization is terminated or revoked sooner. [facility] is certified under CLIA-88 as qualified to perform high complexity testing. Testing is performed in the [facility] laboratory located at [address] [place] [address]. SARS-CoV-2/Flu/RSV Multiplex Test: Fact sheet for providers: https://www.fda.gov/media/415159/download Fact sheet for patients: https://www.fda.gov/media/244983/download Performed By: #### C OV19 #### [place] [address] Lab Specimen Source Nasal, Nasopharyngeal Normal [facility] Comment on above: Performed By: #### C OV19 #### [place] [address] Complete Blood Count + Diffe rentialon 06-07-2021 Basophils/100 WBC (Bld) 0.6 % 0.0 - 2.[address] Work Phone: Comment on above: Performed By: #### C BCDF #### [address] [address] Erythrocyte distribution width (RBC) [Ratio] 13.1 % See Below [address] Work Phone: [phone] Comment on above: Reference Range: 11. 5 - 14.5 Performed By: #### C BCDF #### [address] [address] Hematocrit (Bld) [Volume fraction] 40.8 % below low threshold See Below [address] Work Phone: [phone] Comment on above: Reference Range: 41. 0 - 52.0 Performed By: #### C BCDF #### [address] [address] Hemoglobin (Bld) [Mass/Vol] 14.0 g/dL See Below [address] Work Phone: [phone] Comment on above: Reference Range: 13. 5 - 17.5 Performed By: #### C BCDF #### [address] [address] Lymphocytes/100 WBC (Bld) 23.4 % See Below [address] Work Phone: [phone] Comment on above: Reference Range: 13. 0 - 44.0 Performed By: #### C BCDF #### [address] [address] MCHC (RBC) [Mass/Vol] 34.3 g/dL See Below [address] Work Phone: [phone] Comment on above: Reference Range: 32. 0 - 36.0 Performed By: #### C BCDF #### [address] [address] MCV (RBC) [Entitic vol] 83 fL 80 - [address] Work Phone: [phone] Comment on above: Performed By: #### C BCDF #### [address] [address] Monocytes/100 WBC (Bld) 13.2 % 2.0 - 10.[address] Work Phone: [phone] Comment on above: Performed By: #### C BCDF #### [address] [address] Neutrophils/100 WBC (Bld) 59.8 % See Below [address] Work Phone: [phone] Comment on above: Reference Range: 40. 0 - 80.0 Performed By: #### C BCDF #### [address] [address] Platelets (Bld) [#/Vol] 148 10*3/uL below low threshold 150 - [address] Work Phone: [phone] Comment on above: Performed By: #### C BCDF #### [address] [address] WBC (Bld) [#/Vol] 3.3 10*3/uL below low threshold 4.4 - 11.[address] Work Phone: [phone] Comment on above: Performed By: #### C BCDF #### [address] [address] RBC (Bld) [#/Vol] 4.89 {x10E12/L} See Below [...] [address] Work Phone: [phone] Comment on above: Reference Range: 0.1 [...] Authorization (EUA) and has been verified by [facility]. This test is only authorized for the duration of time that circumstances exist to justify the authorization of the emergency use of in vitro diagnostic tests for the detection of SARS-CoV-2 virus and/or diagnosis of COVID-19 infection under section 564(b)(1) of the Act, 21 U.S.C. 360bbb-3(b)(1), unless the authorization is terminated or revoked sooner. [facility] is certified under CLIA-88 as qualified to perform high complexity testing. Testing is performed in the [facility] laboratory located at [address] [place] [address].SARS-CoV-2/Flu/RSV Multiplex Test: Fact sheet for providers: https://www.fda.gov/media/943880/downloadFact sheet for patients: https://www.fda.gov/media/499428/download Covid 19 Resultson SARS-CoV-2 (COVID-19) RNA TATI+probe [...] You may also be contacted by the [facility] to see if any of your close [...] or Naproxen (Aleve) can also be used. Lzfj-uwj-ruazcye cough and cold medicines can be used according to the instructions on the package. Some wdfy-qrn-xhyjyuz medicines also contain acetaminophen. Make sure you [...] water are not available, use alcohol-based hand transit worker. Avoid touching your eyes, nose, and mouth [...] 24 guerline (more content not included)... [facility] Laboratory - Chemistry and C hemistry - [...] [address] Work Phone: [phone] Laboratory - Coagulationon 0 06-07-2021 INR [...] 2.40 Performed By: #### M G #### [address] [address] No Panel Informationon 06-07 30 pg/mL 0 - [address] Work Phone: Comment on above: . <100 pg/mL - Heart failure eocdirwc743-438 pg/mL - Intermediate probability of acute heart. failure exacerbation. Correlate with clinical. context and patient history. >=300 pg/mL - Heart Failure likely. Correlate with clinical. context and patient history.BNP testing is performed using different testing methodology at [facility] than at other [facility] [place] [facility]. Direct result comparisons should only be made within the same method. >60 >[address] Work Phone: Comment on above: CALCULATIONS OF NIKOLE MATED GFR ARE PERFORMED USING THE MDRD STUDY EQUATION FOR THE IDMS-TRACEABLE CREATININE METHODS. CLIN CHEM 2007;53:766-72 PT/INRon 06-07-2021 PT Coag (PPP) [Time] 11.0 s Normal 10.1 - 13.3 [facility] Comment on above: Performed By: #### P TINR #### [address] [address] PT, INR 0.9 Normal 0.9 - 1.1 [facility] Comment on above: Performed By: #### P TINR #### [address] [address] Provider Note - ED v3on 05-24 Provider [...] similar episodes and was recently seen at [facility] where his work-up was grossly negative. [...] he says he has a home in [place] and that he has been using his [...] GASTROINTESTINAL: Abdomen (more content not included)... [facility] Radiologyon 06-07-2021 XR Chest Single view Normal [...] Learning Preferencesverbal instruction Cultural Considerationsnone Developmental Considerationsnone Presybeterian Considerationsnone Learning Assessment (Other Learner): Learning Assessment [...] an injured patient at a Trauma Center ([facility] /[place]): no Electronic Signatures: Nelly Reagan (BROOK[place]NN) (Signed 07-Jun-2021 09:12) Authored: Preferred Language, Advanced Directives, Family Violence Adult, Learning Assessment (Patient), Learning Assessment (Other Learner), Pressure Injury/TB/Substance, Pressure Injury, CAGE Last Updated: 07-Jun-2021 09:12 by Nelly Reagan (BROOKLYNN) Normal [facility] TROPONIN Ion 06-07-2021 Troponin I.cardiac [Mass/Vol] ng/mL Normal 0.00 - 0.03 [facility] Comment on above: Result Comment: LESS THAN [...] is performed using different testing methodology at [facility] than at other [facility] [place] [facility]. Direct result comparisons should only be made within the same method. Performed By: #### C [facility] #### [address] [address] Troponin I.cardiac [Mass/Vol] ng/mL Normal 0.00 - 0.03 [facility] Comment on above: Result Comment: LESS THAN [...] is performed using different testing methodology at [facility] than at other [facility] [place] [facility]. Direct result comparisons should only be made within the same method. Performed By: #### T ROP2 #### [facility] [address] [place] [address] Triage - EDon 06-07-2021 Triage - ED [...] BMI (kg/m2): 29.904 Calculated BSA (m2) 1.98 [place] Coma Scale: Best Eye Response: (E4) spontaneous [...] 07-Jun-2021 08:53 by Kika Montesinos (EMT-P) Normal [facility] Troponin I, Serumon 06-07-20 21 Troponin I.cardiac [...] is performed using different testing methodology at [facility] than at other [place] [facility]. Direct result comparisons should only be made [...] then post processed by myself on the Zipnosis workstation, with reconstructed 3D volume rendered and [...] NUBIA SEGAL MD Date: 06/04/2021 23:09 [facility] Comment on above: Order Comment: CONTR [...] then post processed by myself on the Zipnosis workstation, with reconstructed 3D volume rendered and [...] NUBIA SEGAL MD Date: 06/04/2021 23:09 [facility] Comment on above: Order Comment: CONTR AST PER RADIOLOGIST DISCRETION, r/o dissection ED NOTEon 06-04-2021 ED NOTE HNO ID: [id number] Author: Yang Solomon RN Service: Emergency Medicine Author Type: Registered Nurse Type: ED Notes Filed: 06/04/2021 3:11 PM Note Text: Patient states pain in between shoulders starting about 1400 after eating sausage. Patient thinks its his aorta. Normal [facility] ED PROV NOTEon 06-04-2021 ED PROV NOTE HNO ID: [id number] Author: Marti Rebollar MD Service: Emergency Medicine [...] medicine care in multiple different ED's throughout [place], [place], and [place]. [facility] states that patient recently broke into their fire station earlier this week. He showed up again today to their fire station and therefore police were called on scene. Please cleared him and patient left the fire house. He then decided to walk to [place] and called [facility] from there. He reports right sided [...] care, patient states he currently lives in [place], [place] however is currently in the area riding his bike on the [employer]. He states he also lives in [place] and sees a primary care doctor there. [...] - Caffeine Rash Other reaction(s): Shakiness - [place] GI Upset, Rash, Vomiting Statused by Person: ?Imelda Meza.([employer]) on Statused by Person: ?SRAVANTHI MONGE([facility]) on Statused by Person: ?Imelda Meza.([employer]) on Statused by Person: ?SRAVANTHI MONGE(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 Tenderness: (more content not included)... Normal [facility] COMPREHENSIVE PANELon 2020 Albumin [Mass/Vol] 4.4 g/dL Normal 3.4 - 5.0 [facility] Comment on above: Performed By: #### C MP ####[facility] [id number] [place] [address] ALP [Catalytic activity/Vol] 60 U/L Normal 33 - 120 [facility] Comment on above: Performed By: #### C MP ####[facility] [id number] [place] [id number] ALT [Catalytic activity/Vol] 24 U/L Normal 10 - 52 [facility] Comment on above: Result Comment: Yanni ents treated with Sulfasalazine may generate falsely decreased results for ALT. Performed By: #### C MP ####[facility] [id number] [place] [address] Anion gap [Moles/Vol] 12 mmol/L Normal 10 - 20 [facility] Comment on above: Performed By: #### C MP ####[facility] [id number] [place] [address] AST [Catalytic activity/Vol] 20 U/L Normal 9 - 39 [facility] Comment on above: Performed By: #### C MP ####[facility] [id number] [place] [address] Bilirubin [Mass/Vol] 0.5 mg/dL Normal 0.0 - 1.2 [facility] Comment on above: Performed By: #### C MP ####[facility] [id number] [place] [address] Calcium [Mass/Vol] 9.4 mg/dL Normal 8.6 - 10.3 [facility] Comment on above: Performed By: #### C MP ####[facility] [id number] [place] [address] Chloride [Moles/Vol] 101 mmol/L Normal 98 - 107 [facility] Comment on above: Performed By: #### C MP ####[facility] [id number] [place] [address] Creatinine [Mass/Vol] 0.97 mg/dL Normal 0.50 - 1.30 [facility] Comment on above: Performed By: #### C MP ####[facility] [id number] [place] [address] GFR- AM. >60 Normal >60 [facility] Comment on above: Result Comment: CALC ULATIONS OF ESTIMATED GFR ARE PERFORMED USING THE MDRD STUDY EQUATION FOR THE IDMS-TRACEABLE CREATININE METHODS. CLIN CHEM 2007;53:766-72 Performed By: #### C MP ####[facility] [id number] [place] [address] GFR-NON AM. >60 Normal >60 [facility] Comment on above: Performed By: #### C MP ####[facility] [id number] [place] [address] Glucose [Mass/Vol] 93 mg/dL Normal 74 - 99 [facility] Comment on above: Performed By: #### C MP ####[id number] [place] [address] HCO3 (Bld) [Moles/Vol] 27 mmol/L Normal 21 - 32 [facility] Comment on above: Performed By: #### C MP ####[facility] [id number] [place] [address] Potassium [Moles/Vol] 4.4 mmol/L Normal 3.5 - 5.3 [facility] Comment on above: Performed By: #### C MP ####[facility] [id number] [place] [address] Protein [Mass/Vol] 7.1 g/dL Normal 6.4 - 8.2 [facility] Comment on above: Performed By: #### C MP ####[facility] [id number] [place] [address] Sodium [Moles/Vol] 136 mmol/L Normal 136 - 145 [facility] Comment on above: Performed By: #### C MP ####[facility] [address] [id number] [place] [address] Urea nitrogen [Mass/Vol] 12 mg/dL Normal 6 - 23 [facility] Comment on above: Performed By: #### C MP ####[facility] [id number] [place] [address] HIV 1/2 ANTIGEN/ANTIBODY SCR EEN WITH REFLEX TO CONFIRMATIONon 06-03-2021 HIV 1/2 AG/AB SCREEN Non-Reactive Normal NONREACTIVE [facility] Comment on above: Result Comment: HIV Ag/Ab screen is performed using the Siemens Queue-it HIV Ag/Ab Combo assay which detects the presence of HIV p24 antigen as well as antibodies to HIV-1 (Group M and O) and HIV-2. . No laboratory evidence of HIV infection. If acute HIV infection is suspected, consider testing for HIV RNA by PCR (viral load). Performed By: #### H IV ####[id number] [place] [address] MAGNESIUMon 06-03-2021 Magnesium [Mass/Vol] 2.00 mg/dL Normal 1.60 - 2.40 [facility] Comment on above: Performed By: #### M G ####[facility] [id number] [place] [address] PHOSPHORUSon 06-03-2021 Phosphate [Mass/Vol] 4.6 mg/dL Normal 2.5 - 4.9 [facility] [place] Comment on above: Result Comment: The performance characteristics of phosphorus testing in heparinized plasma have been validated by the individual laboratory site where testing is performed. Testing on heparinized plasma is not approved by the FDA; however, such approval is not necessary. Performed By: #### P HOS ####[facility] [id number] [place] [address] Provider Note - ED v3on 05-24 Provider [...] and has been struggling to see a boner meat. Pt states that he has been seen [...] up and was given information for a expressive art therapist. He does have a phone and is [...] and evaluated the patient. Patient and/or patient manufacturers service representative counseled regarding contents of Hospital Course / Medical Decisio (more content not included)... Normal [facility] ALLIED HEALTHon 06-02-2021 ALLIED HEALTH HNO ID: [id number] Author: Iain Brice Service: Radiology Author Type: Aids Counselor Type: Allied Health Filed: 06/02/2021 2:59 PM [...] Brice June 02, 2021 2:58 PM Normal [facility] ALLIED HEALTH HNO ID: [id number] Author: Iain Brice Service: Radiology Author Type: Aids Counselor Type: Allied Health Filed: 06/02/2021 2:48 PM [...] Brice June 02, 2021 2:47 PM Normal [facility] Basic metabolic 2000 panelon 06-02-2021 Anion gap [Moles/Vol] 11 mmol/L Normal 8-16 [facility] Comment on above: Order Comment: Speci men Type: BLOOD SPECIMEN Performed By: #### 2 4321-2 ####[facility]CLIA [id number] [place] [address] [place] [facility] Calcium [Mass/Vol] 8.6 mg/dL Normal 8.5-10.1 [facility] Comment on above: Order Comment: Speci men Type: BLOOD SPECIMEN Performed By: #### 2 4321-2 ####[facility] [id number] [place] [address] [place] Chloride [Moles/Vol] 102 mmol/L Normal 98-107 [facility] Comment on above: Order Comment: Speci men Type: BLOOD SPECIMEN Performed By: #### 2 4321-2 ####[facility] [id number] [address] OF [facility] CO2 [Moles/Vol] 26 mmol/L Normal 21-32 [facility] Comment on above: Order Comment: Speci men Type: BLOOD SPECIMEN Performed By: #### 2 4321-2 ####[facility] [id number] [address] STATES [facility] Creatinine [Mass/Vol] 0.82 mg/dL Normal 0.67-1.17 [facility] Comment on above: Order Comment: Speci men Type: BLOOD SPECIMEN Performed By: #### 2 4321-2 ####[facility] [id number] [address] [place] GFR/1.73 sq M.predicted among blacks MDRD (S/P/Bld) [Vol rate/Area] mL/min/{1.73_m2} [facility] Comment on above: Order Comment: Speci men Type: BLOOD SPECIMEN Performed By: #### 2 4321-2 ####[facility] [id number] [address] GFR/1.73 sq M.predicted among non-blacks MDRD [...] actual GFR. Performed By: #### 2 4321-2 ####[facility] [id number] [place] [address] [place] [facility] Glucose [Mass/Vol] 81 mg/dL Normal 70-99 [facility] Comment on above: Order Comment: Speci men Type: BLOOD SPECIMEN Result Comment: The [place] Diabetes Association (ADA) provides guidance for cutoff [...] Standards of Medical Care in Diabetes 2016, [place] Diabetes Association. Diabetes Care. 2016.39(Suppl 1). Performed By: #### 2 4321-2 ####[facility] [id number] [address] Potassium [Moles/Vol] 3.7 mmol/L Normal 3.5-5.1 [facility] Comment on above: Order Comment: Speci men Type: BLOOD SPECIMEN Performed By: #### 2 4321-2 ####[facility] [id number] [address] STATES [facility] Sodium [Moles/Vol] 139 mmol/L Normal 136-145 [facility] Comment on above: Order Comment: Speci men Type: BLOOD SPECIMEN Performed By: #### 2 4321-2 ####[facility] [id number] [address] [place] Urea nitrogen [Mass/Vol] 10 mg/dL Normal 7-18 [facility] Comment on above: Order Comment: Speci men Type: BLOOD SPECIMEN Performed By: #### 2 4321-2 ####[facility] [id number] [place] [address] [place] CBC AND DIFFERENTIALon 06-02 % AUTOMATED IMMATURE GRAN 0.6 % Normal 0.0 - 0.9 [facility] Comment on above: Result Comment: Kath ture Granulocyte Count (IG) includes promyelocytes, myelocytes and metamyelocytes but does not include bands. Percent differential counts (%) should be interpreted in the context of the absolute cell counts (cells/L). Performed By: #### C BCDF ####[id number] [place] [id number] Basophils (Bld) [#/Vol] 0.03 10*3/uL Normal 0.00 - 0.10 [facility] Comment on above: Performed By: #### C BCDF ####[id number] [place] [address] Basophils/100 WBC (Bld) 0.8 % Normal 0.0 - 2.0 [facility] Comment on above: Performed By: #### C BCDF ####[place] [id number] [place] [address]48[address] Eosinophils (Bld) [#/Vol] 0.08 10*3/uL Normal 0.00 - 0.70 [facility] Comment on above: Performed By: #### C BCDF ####[facility] [place] [place] [address] Eosinophils/100 WBC (Bld) 2.2 % Normal 0.0 - 6.0 [facility] Comment on above: Performed By: #### C BCDF ####[id number] [place] [address] Erythrocyte distribution width (RBC) [Ratio] 13.0 % Normal 11.5 - 14.5 [facility] Comment on above: Performed By: #### C BCDF ####[facility] [id number] [place] [address] Hematocrit (Bld) [Volume fraction] 40.8 % Low 41.0 - 52.0 [facility] Comment on above: Performed By: #### C BCDF ####[facility] [id number] [place] [address] Hemoglobin (Bld) [Mass/Vol] 13.1 g/dL Low 13.5 - 17.5 [facility] Comment on above: Performed By: #### C BCDF ####[facility] [facility] [place] [address] Lymphocytes (Bld) [#/Vol] 0.97 10*3/uL Low 1.20 - 4.80 [facility] Comment on above: Performed By: #### C BCDF ####[facility] [place] [address] Lymphocytes/100 WBC (Bld) 26.8 % Normal 13.0 - 44.0 [facility] Comment on above: Performed By: #### C BCDF ####[facility] [place] [address] MCHC (RBC) [Mass/Vol] 32.1 g/dL Normal 32.0 - 36.0 [facility] Comment on above: Performed By: #### C BCDF ####[facility] [place] [address] MCV (RBC) [Entitic vol] 85 fL Normal 80 - 100 [facility] Comment on above: Performed By: #### C BCDF ####[id number] [place] [address] Monocytes (Bld) [#/Vol] 0.36 10*3/uL Normal 0.10 - 1.00 [facility] Comment on above: Performed By: #### C BCDF ####[facility] [place] [address] Monocytes/100 WBC (Bld) 9.9 % Normal 2.0 - 10.0 [facility] Comment on above: Performed By: #### C BCDF ####[id number] [place] [address] Neutrophils (Bld) [#/Vol] 2.16 10*3/uL Normal 1.20 - 7.70 [facility] Comment on above: Performed By: #### C BCDF ####[facility] [place] [address] Neutrophils/100 WBC (Bld) 59.7 % Normal 40.0 - 80.0 [facility] Comment on above: Performed By: #### C BCDF ####[facility] [id number] [place] [address] Platelets (Bld) [#/Vol] 152 10*3/uL Normal 150 - 450 [facility] Comment on above: Performed By: #### C BCDF ####[facility] [id number] [place] [address] RBC 4.78 x10E12/L Normal 4.50 - 5.90 [facility] Comment on above: Performed By: #### C BCDF ####[facility] [id number] [place] [address] WBC (Bld) [#/Vol] 3.6 10*3/uL Low 4.4 - 11.3 [facility] Comment on above: Performed By: #### C BCDF ####[facility] [id number] [place] [address] CBC W Auto Differential pane l (Bld)on 06-02-2021 Basophils (Bld) [#/Vol] 10*3/uL Normal <0.11 [facility] Comment on above: Order Comment: Speci men Type: BLOOD SPECIMEN Performed By: #### 5 7021-8 #### [facility] CLIA [id number] [address] [place] [address] [place] Basophils/100 WBC (Bld) 0.4 % Normal [facility] Comment on above: Order Comment: Speci men Type: BLOOD SPECIMEN Performed By: #### 5 7021-8 #### [facility] CLIA [id number] [address] [place] [address] [place] OF [facility] Differential cell count method Nom (Bld) Auto Normal [facility] Comment on above: Order Comment: Speci men Type: BLOOD SPECIMEN Performed By: #### 5 7021-8 #### [facility] CLIA [id number] [address] [place] [address] [place] Eosinophils (Bld) [#/Vol] 0.09 10*3/uL Normal <0.46 [facility] Comment on above: Order Comment: Speci men Type: BLOOD SPECIMEN Performed By: #### 5 7021-8 #### [facility] [place] [facility] CLIA [id number] [address] [place] [address] Eosinophils/100 WBC (Bld) 3.2 % Normal [facility] Comment on above: Order Comment: Speci men Type: BLOOD SPECIMEN Performed By: #### 5 7021-8 #### [facility] [place] [facility] CLIA [id number] [address] [place] [address] Erythrocyte distribution width (RBC) [Ratio] 12.6 % Normal 11.5-15.0 [facility] Comment on above: Order Comment: Speci men Type: BLOOD SPECIMEN Performed By: #### 5 7021-8 #### [facility] [place] [facility] CLIA [id number] [address] [place] [address] Hematocrit (Bld) [Volume fraction] 34.0 % Low 39.0-51.0 [facility] Comment on above: Order Comment: Speci men Type: BLOOD SPECIMEN Performed By: #### 5 7021-8 #### [facility] [place] [facility] CLIA [id number] [address] [place] [address] [place] Hemoglobin (Bld) [Mass/Vol] 11.3 g/dL Low 13.0-17.0 [facility] Comment on above: Order Comment: Speci men Type: BLOOD SPECIMEN Performed By: #### 5 7021-8 #### [facility] [place] [facility] CLIA [id number] [address] [place] [address] OF [place] Lymphocytes (Bld) [#/Vol] 0.83 10*3/uL Low 1.00-4.00 [facility] Comment on above: Order Comment: Speci men Type: BLOOD SPECIMEN Performed By: #### 5 7021-8 #### [facility] [place] [facility] CLIA [id number] [address] [place] [address] Lymphocytes/100 WBC (Bld) 29.1 % Normal [facility] Comment on above: Order Comment: Speci men Type: BLOOD SPECIMEN Performed By: #### 5 7021-8 #### [facility] [place] [facility] CLIA [id number] [address] [place] [address] MCH (RBC) [Entitic mass] 28.6 pg Normal 26.0-34.0 [facility] Comment on above: Order Comment: Speci men Type: BLOOD SPECIMEN Performed By: #### 5 7021-8 #### [facility] [place] [facility] CLIA [id number] [address] [place] [address] MCHC (RBC) [Mass/Vol] 33.2 g/dL Normal 30.5-36.0 [facility] Comment on above: Order Comment: Speci men Type: BLOOD SPECIMEN Performed By: #### 5 7021-8 #### [facility] [place] [facility] CLIA [id number] [address] [place] [address] MCV (RBC) [Entitic vol] 86.1 fL Normal 80.0-100.0 [facility] Comment on above: Order Comment: Speci men Type: BLOOD SPECIMEN Performed By: #### 5 7021-8 #### [facility] [place] [facility] CLIA [id number] [address] [place] [address] Monocytes (Bld) [#/Vol] 0.27 10*3/uL Normal <0.87 [facility] Comment on above: Order Comment: Speci men Type: BLOOD SPECIMEN Performed By: #### 5 7021-8 #### [facility] [place] [facility] CLIA [id number] [address] [place] [address] Monocytes/100 WBC (Bld) 9.5 % Normal [facility] Comment on above: Order Comment: Speci men Type: BLOOD SPECIMEN Performed By: #### 5 7021-8 #### [facility] [place] [facility] CLIA [id number] [address] [place] [address] [place] Neutrophils (Bld) [#/Vol] 1.65 10*3/uL Normal 1.45-7.50 [facility] Comment on above: Order Comment: Speci men Type: BLOOD SPECIMEN Performed By: #### 5 7021-8 #### [facility] [place] [facility] CLIA [id number] [facility] [place] [address] [facility] Neutrophils/100 WBC (Bld) 57.8 % Normal [facility] Comment on above: Order Comment: Speci men Type: BLOOD SPECIMEN Performed By: #### 5 7021-8 #### [facility] [place] [facility] CLIA [id number] [address] [place] [address] [place] Platelet mean volume (Bld) [Entitic vol] 11.0 fL Normal 9.0-12.7 [facility] Comment on above: Order Comment: Speci men Type: BLOOD SPECIMEN Performed By: #### 5 7021-8 #### [facility] [facility] CLIA [id number] [address] [place] [address] [place] Platelets (Bld) [#/Vol] 124 10*3/uL Low 150-400 [facility] Comment on above: Order Comment: Speci men Type: BLOOD SPECIMEN Performed By: #### 5 7021-8 #### [facility] CLIA [id number] [address] [place] [address] [place] RBC (Bld) [#/Vol] 3.95 10*6/uL Low 4.20-6.00 [facility] Comment on above: Order Comment: Speci men Type: BLOOD SPECIMEN Performed By: #### 5 7021-8 #### [facility] [place] [facility] CLIA [id number] [address] [place] [address] [place] WBC (Bld) [#/Vol] 2.85 10*3/uL Low 3.70-11.00 [facility] Comment on above: Order Comment: Speci men Type: BLOOD SPECIMEN Performed By: #### 5 7021-8 #### [facility] [place] [facility] CLIA [id number] STATES OF [facility] CHEST 1 VIEWon 06-02-2021 CHEST 1 VIEW Patient Name: HOSEA ALVAREZ STUDY: CHEST 1 VIEW; 06/02/2021 9:05 pm INDICATION: right shoulder pain. COMPARISON: Chest x-ray 05/31/2021 ACCESSION NUMBER(S): [id number] ORDERING CLINICIAN: MAHSA FORD FINDINGS: CARDIOMEDIASTINAL SILHOUETTE: Cardiomediastinal silhouette is mildly enlarged but stable. Mild unfolding of the descending thoracic aorta. LUNGS: No consolidation, pleural effusion or pneumothorax. ABDOMEN: No remarkable upper abdominal findings. BONES: Multilevel degenerative changes of the spine. IMPRESSION: No acute cardiopulmonary process. Electronically signed by: BHARGAV MOJICA MD [facility] Complete Blood Count + Diffe rentialon 06-02-2021 [...] [address] Work Phone: [phone] Monocytes/100 WBC (Bld) 9.9 % 2.0 - 10.[address] Work Phone: [phone] Neutrophils/100 WBC (Bld) 59.7 % See Below [address] Work Phone: [phone] Comment on above: Reference Range: 40. 0 - 80.0 Platelets (Bld) [#/Vol] 152 10*3/uL 150 - [address] Work Phone: [phone] RBC (Bld) [#/Vol] 4.78 {x10E12/L} See Below [address] Work Phone: [phone] Comment on above: Reference Range: 4.5 0 - 5.90 WBC (Bld) [#/Vol] 3.6 10*3/uL below low threshold 4.4 - 11.[address] Work Phone: [phone] Complete Blood Count + Differential 0.03 {x10E9/L} See Below [address] Work Phone: [phone] Comment on above: Reference Range: 0.0 0 - 0.10 Complete Blood Count + Differential 0.08 {x10E9/L} See Below [facility] Work Phone: [phone] Comment on above: Reference Range: 0.0 0 - 0.70 Complete Blood Count + Differential 0.36 {x10E9/L} See Below [facility] Work Phone: [phone] Comment on above: Reference Range: 0.1 0 - 1.00 Complete Blood Count + Differential 0.97 {x10E9/L} below low threshold See Below [facility] Work Phone: [phone] Comment on above: Reference Range: 1.2 0 - 4.80 Complete Blood Count + Differential 2.16 {x10E9/L} See Below [facility] Work Phone: [phone] Comment on above: Reference Range: 1.2 [...] ED NOTEon 06-02-2021 ED NOTE HNO ID: [id number] Author: Melania Juares RN Service: Emergency Medicine [...] is written down for pt for his [place] medicaid insurance card and that pt states to the RN a ride will be provided for him. Policy # also written down on Same piece of paper. Security is watching pt from their office and pt is calling from his cell phone. Pt states repeatedly he cannot believe there is no social media intern to handle this for him here at his location. Informed pt that there has never been social media intern at [facility]. And with the information provided to him he should likely and easily be able to get a ride as he stated was the service on his insurance. Normal [facility] ED NOTE HNO ID: [id number] Author: Melania Juares RN Service: Emergency Medicine Author Type: Registered Nurse Type: ED Notes Filed: 06/02/2021 4:12 PM Note Text: EDP attending Dr Madden has in great detail spoken to pt and reassured him that all labs are normal and ok for dc home. No further testing would be performed and no admission would be done. Normal [facility] ED NOTE HNO ID: [id number] Author: Melania D Mor, RN Service: Emergency [...] right arm 142/100. EDP made aware Normal [facility] ED NOTE HNO ID: [id number] Author: Melania Juares RN Service: Emergency Medicine Author Type: Registered Nurse Type: ED Notes Filed: 06/02/2021 4:08 PM Note Text: After Normal [facility] ED NOTE HNO ID: [id number] Author: Melania Juares RN Service: Emergency Medicine Author Type: Registered Nurse Type: ED Notes Filed: 06/02/2021 2:52 PM Note Text: BACK FROM XRAY Normal [facility] ED NOTE HNO ID: [id number] Author: Melania Juares RN Service: Emergency Medicine [...] ANY ISSUE OR DISTRESS. 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 HE DENIES HAVING 99 VISITS TO ER'S AND MEDICAL FACILITIES DRS OFFICES ETC BUT IN THE SAME BREATH TALKS ABOUT ALL HIS HOSPITAL HOPPING. Normal [facility] ED NOTE HNO ID: [id number] Author: Melania Juares RN Service: Emergency Medicine Author Type: Registered Nurse Type: ED Notes Filed: 06/02/2021 2:44 PM Note Text: Labs sent and pt to xray now Normal [facility] ED NOTE HNO ID: [id number] Author: Melania Juares RN Service: Emergency Medicine Author Type: Registered Nurse Type: ED Notes Filed: 06/02/2021 2:17 PM Note Text: PT STATES CHEST PRESSURE TODAY. CALLED Squad for eval and now here in ER. Pt states has a thoracic aneurysm that he does not know the size of. Pt has 99 visits to medical facilities this year Normal [facility] ED NOTE HNO ID: [id number] Author: Melania Juares RN Service: Emergency Medicine Author Type: Registered Nurse Type: ED Notes Filed: 06/02/2021 2:26 PM Note Text: ekg done and pt on diagnostic cardiac sonographer shows NSR Normal [facility] ED PROV NOTEon 06-02-2021 ED PROV NOTE HNO ID: [id number] Author: Lily Bingham DO Service: Emergency Medicine [...] well-known to multiple hospital systems throughout the [facility] region. Patient has been seen multiple times with the [facility] facilities as well as [facility] facilities nearly on a daily basis. He [...] - Caffeine Rash Other reaction(s): Shakiness - [place] GI Upset, Rash, Vomiting Statused by Person: ?Tammy. Derrick([employer]) on Statused by Person: ?SRAVANTHI MONGE([facility]) on Statused by Person: ?Tammy. Derrick([employer]) on Statused by Person: ?SRAVANTHI MONGE(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 Palpations (more content not included)... Normal [facility] HIV 1/2 ANTIGEN/ANTIBODY SCR EEN WITH REFLEX TO CONFIRMATIONon 06-02-2021 Lab Specimen Source Normal [facility] Comment on above: Performed By: #### H IV ####[id number] [place] [address] HIV 1+2 Ab Qn (S) Non-Reactive See [...] [facility] [address] [facility] Work Phone: [phone] ALT With P-5'-P [Catalytic activity/Vol] 24 U/L 10 - [address] [facility] Work Phone: [phone] Comment on above: Patients treated wit h Sulfasalazine may generate falsely decreased results for ALT. Anion gap [Moles/Vol] 12 mmol/L 10 - [address] [facility] [address] [facility] Work Phone: [phone] AST With P-5'-P [Catalytic activity/Vol] 20 U/L 9 - [address] [facility] Work Phone: [phone] Bilirubin [Mass/Vol] 0.5 mg/dL 0.0 - 1.[address] [facility] [facility] Work Phone: [phone] Calcium [Mass/Vol] 9.4 mg/dL 8.6 - 10.[address] [facility] [facility] [address] Work Phone: [phone] Chloride [Moles/Vol] 101 mmol/L 98 - [address] [facility] Work Phone: [phone] CO2 [Moles/Vol] 27 mmol/L 21 - [address] [facility] Work Phone: [phone] Creatinine [Mass/Vol] 0.97 mg/dL See Below [facility] [address] [facility] Work Phone: [phone] Comment on above: Reference Range: 0.5 0 - 1.30 Glucose [Mass/Vol] 93 mg/dL 74 - [address] [facility] [facility] Work Phone: [phone] Potassium [Moles/Vol] 4.4 mmol/L 3.5 - 5.[address] [facility] [address] [facility] Work Phone: [phone] Protein [Mass/Vol] 7.1 g/dL 6.4 - 8.[address] [facility] Work Phone: [phone] Sodium [Moles/Vol] 136 mmol/L 136 - [...] Panel Informationon 06-02 [email or web address]?RetrieveTestByDateTim e?MnzupqzMP=[id number]&Da te=07-01-2021&Time=21%3a 43%3a26%3a00&TestType=EC G&Site=2&OutputType=PDF& Ext=PDF [facility] [address] Work Phone: [phone] Normal sinus rhythm [facility] [address] Work Phone: [phone] Abnormal [facility] [address] Work Phone: [phone] [facility] [address] Work Phone: [phone] 1 [facility] [address] Work Phone: [phone] 1 [facility] [address] Work Phone: [phone] 1 [facility] [address] Work Phone: [phone] 1 [facility] [address] Work Phone: [phone] 1 [facility] [address] Work Phone: [phone] 1 [facility] [address] Work Phone: [phone] 1 [facility] [address] Work Phone: [phone] 1 [facility] [address] Work Phone: [phone] 1 [facility] [address] Work Phone: [phone] [facility] [address] Work Phone: [phone] [facility] [address] Work Phone: [phone] [facility] [address] Work Phone: [phone] [facility] [address] Work Phone: [phone] [...] Troponin I.cardiac [Mass/Vol] 0.000 ng/mL Normal <0.040 [facility] Comment on above: Order Comment: Speci men Type: BLOOD SPECIMEN Performed By: #### T ROP #### [facility] CLIA [id number] [place] [id number] [place] [address] OF [facility] Triage - EDon 06-02-2021 Triage - ED [...] Updated: 02-Jun-2021 20:23 by Norma Zambrano) Normal [facility] XR CHEST 2V FRONTAL/LATon XR [...] tissues: Unremarkable. IMPRESSION: No acute radiographic abnormality. Assistant Restaurant General Manager: PSCB Transcribe Date/Time: Jun 02 2021 3:14P Dictated by : KRISTEN CONWAY MD This examination was interpreted and the report reviewed and electronically signed by: KRISTEN CONWAY MD on Jun 02 2021 3:16PM EST [id number] Normal [facility] Complete Blood Count + Diffe ubaldo [...] [address] [facility] Work Phone: [phone] Comment on above: Reference Range: 32. 0 - 36.0 MCV (RBC) [Entitic vol] 85 fL 80 - [address] [facility] Work Phone: [phone] Monocytes/100 WBC (Bld) 11.6 % 2.0 - 10.[address] [address] [facility] Work Phone: [phone] Neutrophils/100 WBC (Bld) 58.1 % See Below [facility] [address] [facility] Work Phone: [phone] Comment on above: Reference Range: 40. 0 - 80.0 Platelets (Bld) [#/Vol] 125 10*3/uL below low threshold 150 - [address] [facility] [address] [facility] Work Phone: [phone] RBC (Bld) [#/Vol] 4.65 {x10E12/L} See Below [facility] [address] [facility] Work Phone: [phone] Comment on above: Reference Range: 4.5 0 - 5.90 WBC (Bld) [#/Vol] 2.8 10*3/uL below low threshold 4.4 - 11.[address] [facility] [address] [facility] Work Phone: [phone] Complete Blood Count + Differential 0.01 {x10E9/L} See Below [facility] [address] [facility] Work Phone: [phone] Comment on above: Reference Range: 0.0 0 - 0.10 Complete Blood Count + Differential 0.06 {x10E9/L} See Below [facility] [address] [facility] Work Phone: [phone] Comment on above: Reference Range: 0.0 0 - 0.70 Complete Blood Count + Differential 0.33 {x10E9/L} See Below [facility] [address] [facility] Work Phone: [phone] Comment on above: Reference Range: 0.1 0 - 1.00 Complete Blood Count + Differential 0.79 {x10E9/L} below low threshold See Below [facility] [address] [facility] Work Phone: [phone] Comment on above: Reference Range: 1.2 0 - 4.80 Complete Blood Count + Differential 1.65 {x10E9/L} See Below [facility] [address] [facility] Work Phone: [phone] Comment on above: Reference Range: 1.2 0 - 7.70 Complete Blood Count + Differential 2.1 % 0.0 - 6.[address] [facility] [address] [facility] Work Phone: [phone] Complete Blood Count + Differential 0.0 % 0.0 - 0.[address] [address] [facility] Work Phone: [phone] Comment on above: Immature Granulocyte Count (IG) includes promyelocytes, myelocytes and metamyelocytes but does not include bands. Percent differential counts (%) should be interpreted in the context of the absolute cell counts (cells/L). Laboratory - Chemistry and C hemistry - challengeon 05-31-2021 Anion gap [Moles/Vol] 10 mmol/L 10 - [address] [facility] [address] [facility] Work Phone: [phone] Calcium [Mass/Vol] 9.1 mg/dL 8.6 - 10.[address] [facility] [facility] Work Phone: [phone] Chloride [Moles/Vol] 103 mmol/L 98 - [address] [facility] Work Phone: [phone] CO2 [Moles/Vol] 27 mmol/L 21 - [address] [address] [facility] Work Phone: [phone] Creatinine [Mass/Vol] 0.92 mg/dL See Below [facility] [address] [facility] Work Phone: [phone] Comment on above: Reference Range: 0.5 0 - 1.30 Glucose [Mass/Vol] 101 mg/dL above high threshold 74 - [address] [address] [facility] Work Phone: [phone] Potassium [Moles/Vol] 3.9 mmol/L 3.5 - 5.[address] [facility] [address] [facility] Work Phone: [phone] Sodium [Moles/Vol] 136 mmol/L 136 - [address] [facility] [facility] Work Phone: [phone] Urea nitrogen [Mass/Vol] 14 mg/dL 6 - [address] [facility] [address] [facility] Work Phone: [phone] No Panel Informationon 05-31 >60 >[address] [facility] [address] [facility] Work Phone: [phone] Comment on above: CALCULATIONS OF NIKOLE MATED GFR ARE PERFORMED USING THE MDRD STUDY EQUATION FOR THE IDMS-TRACEABLE CREATININE METHODS. CLIN CHEM 2007;53:766-72 [email or web address] 1:80 [email or web address]?RetrieveTestByDateTim e?SxifpoiLC=[id number]&Da te=05-01-2021&Time=07%3a 29%3a08%3a00&TestType=EC G&Site=13&OutputType=PDF &Ext=PDF [facility] Work Phone: [phone] Sinus rhythm [facility] [address] [facility] Work Phone: [phone] [address] [facility] [address] [facility] Work Phone: [phone] [facility] [address] [facility] Work Phone: [phone] [facility] [address] [facility] Work Phone: [phone] [facility] [address] [facility] Work Phone: [phone] [facility] [address] [facility] Work Phone: [phone] [address] [facility] [...] [facility] [address] [facility] Work Phone: [phone] Radiologyon 05-31-2021 XR Abdomen AP Normal [facility] [address] [facility] Work Phone: XR Chest Single view Normal [facility]arran Vanna Cerna [facility] Work Phone: Troponin I, Serumon 05-31-20 21 Troponin I.cardiac [Mass/Vol] ng/mL See Below Venkatesh Cerna [facility] Work Phone: Comment on above: Reference [...] is performed using different testing methodology at [facility] than at other [facility] [place] [facility]. Direct result comparisons should only be made within the same method. Troponin I.cardiac [Mass/Vol] ng/mL See Below Venkatesh Prabhakar [employer] [facility] 160 Work Phone: Comment on above: Reference [...] is performed using different testing methodology at [facility] than at other [facility] [facility] [facility]. Direct result comparisons should only be made within the same method. No Panel Informationon 05-30 [email or web address] 1:80 [email or web address]?RetrieveTestByDateTim e?DfscxoySY=[id number]&Da te=03-31-2021&Time=01%3a 02%3a37%3a00&TestType=EC G&Site=13&OutputType=PDF &Ext=PDF [facility] - [...] spec) Not detected Normal Not Detected [facility] Comment on above: Result Comment: [...] this test method. Fact sheet for providers: www.fda.gov/media/586628/download Fact sheet for patients: www.fda.gov/media/215493/download This test has received FDA Emergency Use Authorization (EUA) and has been verified by [facility] ([facility]). This test is only authorized for the duration of time that circumstances exist to justify the authorization of the emergency use of in vitro diagnostic tests for the detection of SARS-CoV-2 virus and/or diagnosis of COVID-19 infection under section 564(b)(1) of the Act, 21 U.S.C. 360bbb-3(b)(1), unless the authorization is terminated or revoked sooner. [facility] is certified under CLIA-88 as qualified to perform high complexity testing. Testing is performed in the [facility] laboratories located at [address] [place] [address]. Performed By: #### C BCDF #### [place] [address] Lab Specimen Source Nasal, Nasopharyngeal Normal [facility] Comment on above: Performed By: #### C BCDF #### [place] [address] Covid 19 Resultson 1 SARS-CoV-2 (COVID-19) RNA [...] You may also be contacted by the [facility] Department of Health to see if any [...] or Naproxen (Aleve) can also be used. Uzcd-afd-cusuikz cough and cold medicines can be used according to the instructions on the package. Some dgkt-wgt-jukxdyk medicines also contain acetaminophen. Make sure you [...] water are not available, use alcohol-based hand transit worker. Avoid touching your eyes, nose, and mouth [...] guerline (more content not included)... Normal [facility] CT Abdomen / Pelvis w IV onl [...] KEITH IRAHETA MD Date: 05/27/2021 21:51 Normal [facility] Coronavirus 2019 RNA by PCR, Symptomaticon 05-27-2021 Coronavirus 2019 RNA by PCR, Symptomatic Not detected Normal See Below [facility] Work Phone: Comment [...] this test method. Fact sheet for providers: www.fda.gov/media/216993/downloadFact sheet for patients: www.fda.gov/media/532233/downloadThis test has received FDA Emergency Use Authorization (EUA) and has been verified by [facility] ([facility]). This test is only authorized for the duration of time that circumstances exist to justify the authorization of the emergency use of in vitro diagnostic tests for the detection of SARS-CoV-2 virus and/or diagnosis of COVID-19 infection under section 564(b)(1) of the Act, 21 U.S.C. 360bbb-3(b)(1), unless the authorization is terminated or revoked sooner. [facility] is certified under CLIA-88 as qualified to perform high complexity testing. Testing is performed in the [facility] laboratories located at [address] [place] [address]. No Panel Informationon 05-27 [email or web address] 1:[email or web address] ll?RetrieveTestByDateTim e?GkhukkcIJ=[id number]&Da te=12-30-2020&Time=06%3a 47%3a40%3a00&TestType=EC G&Site=13&OutputType=PDF &Ext=PDF [facility] Work Phone: [phone] Sinus rhythm [facility] Work Phone: [phone] Normal [facility] Work Phone: [phone] [facility] Work [phone] [facility] Work Phone: [phone] [facility] Work [phone] [facility] Work [phone] [facility] Work Phone: [phone] [facility] Work [phone] [facility] Work [phone] [facility] Work Phone: [phone] [facility] Work [phone] [facility] Work [phone] [facility] Work Phone: [phone] [facility] Work Phone: [phone] [facility] Work Phone: [phone] Radiologyon 05-27-2021 XR Chest 2 Views Normal [facility] [address] [facility] Work Phone: [phone] Complete Blood Count + Diffe rentialon 05-24-2021 Basophils/100 WBC (Bld) 0.6 % 0.0 - 2.0 [facility] Work Phone: [phone] Erythrocyte distribution width (RBC) [Ratio] 13.2 % See Below [facility] Work Phone: [phone] Comment on above: Reference Range: 11. 5 - 14.5 Hematocrit (Bld) [Volume fraction] 40.0 % below low threshold See Below [facility] Work Phone: [phone] Comment on above: Reference Range: 41. 0 - 52.0 Hemoglobin (Bld) [Mass/Vol] 13.0 g/dL below low threshold See Below [facility] Work Phone: [phone] Comment on above: Reference Range: 13. 5 - 17.5 Lymphocytes/100 WBC (Bld) 25.6 % See Below [facility] Work Phone: [phone] Comment on above: Reference Range: 13. 0 - 44.0 MCHC (RBC) [Mass/Vol] 32.5 g/dL See Below [facility] Work Phone: [phone] Comment on above: Reference Range: 32. 0 - 36.0 MCV (RBC) [Entitic vol] 86 fL 80 - 100 [facility] Work Phone: [phone] Monocytes/100 WBC (Bld) 9.6 % 2.0 - 10.0 [facility] Work Phone: [phone] Neutrophils/100 WBC (Bld) 61.7 % See Below [facility] Work Phone: [phone] Comment on above: Reference Range: 40. 0 - 80.0 Platelets (Bld) [#/Vol] 147 10*3/uL below low threshold 150 - 450 [facility] Work Phone: [phone] RBC (Bld) [#/Vol] 4.64 {x10E12/L} See Below [facility] Work Phone: [phone] Comment on above: Reference Range: 4.5 0 - 5.90 WBC (Bld) [#/Vol] 3.6 10*3/uL below low threshold 4.4 - 11.3 [facility] Work Phone: [phone] Complete Blood Count + Differential 0.02 {x10E9/L} See Below [facility] Work Phone: Comment on above: Reference Range: 0.0 0 - 0.10 Complete Blood Count + Differential 0.08 {x10E9/L} See Below [facility] Work Phone: Comment on above: Reference Range: 0.0 0 - 0.70 Complete Blood Count + Differential 0.34 {x10E9/L} See Below [facility] Work Phone: Comment on above: Reference Range: 0.1 0 - 1.00 Complete Blood Count + Differential 0.91 {x10E9/L} below low threshold See Below [facility] Work Phone: Comment on above: Reference Range: 1.2 0 - 4.80 Complete Blood Count + Differential 2.20 {x10E9/L} See Below [facility] Work Phone: Comment on above: Reference Range: 1.2 0 - 7.70 Complete Blood Count + Differential 2.2 % 0.0 - 6.0 [facility] Work Phone: Complete Blood Count + Differential 0.3 % 0.0 - 0.9 [facility] Work Phone: Comment on above: Immature Granulocyte Count (IG) includes promyelocytes, myelocytes and metamyelocytes but does not include bands. Percent differential counts (%) should be interpreted in the context of the absolute cell counts (cells/L). Laboratory - Chemistry and C hemistry - challengeon 05-24-2021 Albumin BCP dye [Mass/Vol] 4.1 g/dL 3.4 - 5.0 [facility] Work Phone: ALP [Catalytic activity/Vol] 55 U/L 33 - 120 [facility] Work Phone: ALT With P-5'-P [Catalytic activity/Vol] 16 U/L 10 - 52 [facility] Work Phone: Comment on above: Patients treated wit h Sulfasalazine may generate falsely decreased results for ALT. Anion gap [Moles/Vol] 9 mmol/L below low threshold 10 - 20 [facility] Work Phone: AST With P-5'-P [Catalytic activity/Vol] 18 U/L 9 - 39 [facility] Work Phone: Bilirubin [Mass/Vol] 0.3 mg/dL 0.0 - 1.2 [facility] Work Phone: Calcium [Mass/Vol] 9.1 mg/dL 8.6 - 10.3 [facility] Work Phone: [phone] Chloride [Moles/Vol] 106 mmol/L 98 - 107 [facility] Work Phone: [phone] CO2 [Moles/Vol] 28 mmol/L 21 - 32 [facility] Work Phone: Creatinine [Mass/Vol] 0.89 mg/dL See Below [facility] Work Phone: [phone] Comment on above: Reference Range: 0.5 0 - 1.30 Glucose [Mass/Vol] 92 mg/dL 74 - 99 [facility] Work Phone: [phone] Potassium [Moles/Vol] 4.6 mmol/L 3.5 - 5.3 [facility] Work Phone: Protein [Mass/Vol] 7.1 g/dL 6.4 - 8.2 [facility] Work Phone: Sodium [Moles/Vol] 138 mmol/L 136 - 145 [facility] Work Phone: Urea nitrogen [Mass/Vol] 13 mg/dL 6 - 23 [facility] Work Phone: Lipase, Serumon 05-24-2021 Lipase [Catalytic activity/Vol] 18 U/L 9 - 82 [facility] Work Phone: Comment on above: Venipuncture immedia tely after or during the administration of Metamizole may lead to falsely low results. Testing should be performed immediately prior to Metamizole dosing. B-twhdxi-i-benzoquinone imine (metabolite of Acetaminophen) will generate erroneously low results in samples for patients that have taken toxic doses of acetaminophen. No Panel Informationon 05-24 >60 >60 [facility] Work Phone: Comment on above: CALCULATIONS OF NIKOLE MATED GFR ARE PERFORMED USING THE MDRD STUDY EQUATION FOR THE IDMS-TRACEABLE CREATININE METHODS. CLIN CHEM 2007;53:766-72 [email or web address] 1:80 [email or web address] ll?RetrieveTestByDateTim e?AjnjvwjSG=[id number]&Da te=10-01-2020&Time=19%3a 20%3a42%3a00&TestType=EC G&Site=13&OutputType=PDF &Ext=PDF [facility] [address] - [...] [facility] Work Phone: [phone] Radiologyon 05-24-2021 XR Chest Single view Normal [facility] Work Phone: Troponin I, Serumon 05-24-20 21 Troponin I.cardiac [Mass/Vol] ng/mL See Below [facility] Work Phone: Comment on above: Reference Range: [...] is performed using different testing methodology at [facility] than at other [facility] [place] [facility]. Direct result comparisons should only be made [...] until 8 hours following last biotin administration. [facility] Albumin [Mass/Vol] Albumin 4.6 GM/DL (3.5-5.0 GM/DL) 3.5 - 5.0 GM/DL [facility] Albumin/Globulin [Mass ratio] Albumin Globulin Ratio 1.5 RATIO (1.5-3.0 RATIO) 1.5 - 3.0 RATIO [facility] ALP (Bld) [Catalytic activity/Vol] Alk Phosphatase 72 U/L (35-125 U/L) 35 - 125 U/L [facility] ALT [Catalytic activity/Vol] ALT 20 U/L (5-40 [...] G/DL (0.4-1.6 MG/DL) 0.4 - 1.6 MG/DL [facility] GFR/1.73 sq M.predicted MDRD (S/P/Bld) [Vol rate/Area] EGFR 84 mL/min/1.73 m2 (Reference Range: not available) GFR ml/min/1.73m2 Stage ----- 90 1 60-89 2 30-59 3 15-29 4 <15 5 For -Americans, multiply EGFR result by 1.210 Calculation not validated for patients under 18 years of age. Performed at [facility] [id number] [place] [address] [facility] Globulin (S) [Mass/Vol] Globulin 3.0 G/DL (1.9-3.7 G/DL) 1.9 - 3.7 G/DL S Glucose [Mass/Vol] Glucose 88 MG/DL (65 -99 MG/DL) 65 - 99 MG/DL S Potassium [Moles/Vol] Potassium R 3.8 MM OL/L (3.4-5.1 MMOL/L) 3.4 - 5.1 MMOL/L S Protein [Mass/Vol] Total Protein 7.6 G/ DL (5.9-7.9 G/DL) 5.9 - 7.9 G/DL [facility] Sodium [Moles/Vol] Sodium 140 MMOL/L (133-145 MMOL/L) 133 - 145 MMOL/L [facility] Troponin T.cardiac [Mass/Vol] HS Troponin T,Gen 5 [...] until 8 hours following last biotin administration. [facility] Urea nitrogen [Mass/Vol] BUN 12 MG/DL (8-25 MG/DL) 8 - 25 MG/DL [facility] Urea nitrogen/Creatinine [Mass ratio] BUN Creatinine Ratio 12.0 RATIO (8-21 RATIO) 8 - 21 RATIO [facility] Laboratory - Hematology and Cell countson 05-16-2021 Basophils (Bld) [#/Vol] Abs Baso 0.02 K/UL (0.00-0.22 K/UL) 0.00 - 0.22 K/UL [employer] Basophils/100 WBC (Bld) Basophil 0.50 % (0-1 %) 0 - 1 % [facility] Differential cell count method Nom (Bld) Diff Type AUTO DIFF (Reference Range: not available) [facility] Eosinophils (Bld) [#/Vol] Abs Eos 0.06 K/UL (0-0.45 K/UL) 0 - 0.45 K/UL [facility] Eosinophils/100 WBC (Bld) Eosinophil 1.50 % (0-3 %) 0 - 3 % [employer] Erythrocyte distribution width (RBC) [Entitic vol] RDW SD 40.2 FL (37.0-54.0 FL) 37.0 - 54.0 FL [facility] Erythrocyte distribution width (RBC) [Ratio] RDW CV 12.9 % (11.7-15.0 %) 11.7 - 15.0 % [facility] Hematocrit (Bld) [Volume fraction] HCT 44.1 % (41-50 %) 41 - 50 % [facility] Hemoglobin (Bld) [Mass/Vol] HGB 14.3 GM/DL (13.5-16.5 GM/DL) 13.5 - 16.5 GM/DL [employer] Immature granulocytes (Bld) [#/Vol] Abs Imm Neut 0.01 K/UL (0.0-0.1 K/UL) 0.0 - 0.1 K/UL [facility] Lymphocytes (Bld) [#/Vol] Abs Lymph 0.91 K/UL L (1.2-3.2 K/UL) Low 1.2 - 3.2 K/UL [facility] Lymphocytes/100 WBC (Bld) Lymphocyte 22.60 % (20-40 %) 20 - 40 % [facility] MCH (RBC) [Entitic mass] MCH 28.0 PG (26-34 PG) 26 - 34 PG S MCHC (RBC) [Mass/Vol] MCHC 32.4 % (31-37 %) 31 - 37 % [facility] MCV (RBC) [Entitic vol] MCV 86.3 FL (80-100 FL) 80 - 100 FL [facility] Monocytes (Bld) [#/Vol] Abs Brown 0.29 K/UL (0-0.8 K/UL) 0 - 0.8 K/UL [facility] Monocytes/100 WBC (Bld) Monocyte 7.20 % (0-8 %) 0 - 8 % [facility] Neutrophils (Bld) [#/Vol] Abs.Neut.Calculated 2.73 K/UL (Reference Range: not available) Performed at [address] [address] [facility] Neutrophils (Bld) [#/Vol] Abs Neut 2.73 K/UL (1.8-7.7 K/UL) 1.8 - 7.7 K/UL [facility] Neutrophils.immature/ 100 WBC (Bld) Immature Neut % 0.20 % (0.0-1.0 %) 0.0 - 1.0 % [facility] Nucleated RBC/100 WBC (Bld) [Ratio] NRBCs 0 /100 WBC (0 /100 WBC) [facility] Platelet mean volume (Bld) [Entitic vol] MPV 11.0 CU (7.0-12.6 CU) 7.0 - 12.6 CU [facility] Platelets (Bld) [#/Vol] PLT 157 K/UL (150-450 K/UL) 150 - 450 K/UL [facility] RBC (Bld) [#/Vol] RBC 5.11 M/UL (4.5-5 .5 M/UL) 4.5 - 5.5 M/UL [facility] Segmented neutrophils/100 WBC (Bld) Granulocyte 68.00 % (50-70 %) 50 - 70 % [facility] WBC (Bld) [#/Vol] WBC 4.0 K/UL L (4.5- 11.0 K/UL) Low 4.5 - 11.0 K/UL [facility] No Panel Informationon 05-16 HS Troponin T Delta 0 (0-4 ) Performed at [address] [address] 0 - 4 [facility] XR Chest Portable (1view) (Reference Range: not available) *FINAL Date of Service: 05/16/2021 14:01 Adm #: [id number] Reading Dr:ELVIRA MOORE Signoff Dr: ELVIRA MOORE [...] focal consolidation, pleural effusion, or visible pneumothorax. [id number] This report has been produced using speech recognition. Original Interpreting Physician: ELVIRA MOORE MD Original Transcribed by/Date: PSCB May 16 2021 2:30P Original Electronically Signed by/Date: ELVIRA MOORE MD May 16 2021 2:30P Addendum Interpreting Physician: Addendum Transcribed by/Date: NO ADDENDUM Addendum Electronically Signed by/Date: [facility] HS Troponin T Delta No previous result Performed at [address] [facility] [address] (0-4 ) 0 - 4 [facility] Laboratory - Microbiology an d Antimicrobial susceptibilityon 05-15-2021 FLUAV RNA TATI+probe Ql (Nph) FLU A by PCR NEGATIVE (Reference Range: not available) [facility] FLUBV RNA TATI+probe Ql (Nph) FLU B by PCR NEGATIVE (Reference Range: not available) [facility] SARS-CoV-2 (COVID-19) RNA TATI+probe Ql (Unsp spec) SARS-CoV-2 by PCR NEGATIVE (NEG ) [facility] Office Visit ([facility] - Osteopat hic Manipulative [...] the Osteopathic sports rehabilitation clinic at the [facility] I noticed muscle imbalances on my [...] pain and discomfort and improving muscular endurance [email or web address]: prescription for exercise rehabilitation provided - specifically: [...] glycol 3350 Gatrointestinal upset; Recorded By: Antonia Cuenac; 02/16/2021 10:12:41 AM Aspirin TABS Recorded By: [...] GRAN 0.2 % Normal 0.0 - 0.9 [facility] Comment on above: Result Comment: Kath ture Granulocyte Count (IG) includes promyelocytes, myelocytes and metamyelocytes but does not include bands. Percent differential counts (%) should be interpreted in the context of the absolute cell counts (cells/L). Performed By: #### C BCDF #### [facility] [address] [place], [place] [phone] Basophils (Bld) [#/Vol] 0.01 10*3/uL Normal 0.00 - 0.10 [facility] Comment on above: Performed By: #### C BCDF #### [facility] [address] [facility], [place] [phone] Basophils/100 WBC (Bld) 0.2 % Normal 0.0 - 2.0 [facility] Comment on above: Performed By: #### C BCDF #### [facility] [address] [facility] [place], [place] [phone] Eosinophils (Bld) [#/Vol] 0.11 10*3/uL Normal 0.00 - 0.70 [facility] Comment on above: Performed By: #### C BCDF #### [facility] [address] [facility] [place], [place] [phone] Eosinophils/100 WBC (Bld) 2.4 % Normal 0.0 - 6.0 [facility] Comment on above: Performed By: #### C BCDF #### [address] [place], [place] [phone] Erythrocyte distribution width (RBC) [Ratio] 13.0 % Normal 11.5 - 14.5 [facility] Comment on above: Performed By: #### C BCDF #### [address] [place], [place] [phone] Hematocrit (Bld) [Volume fraction] 38.3 % Low 41.0 - 52.0 [facility] Comment on above: Performed By: #### C BCDF #### [place] [id number] [facility] [place], [place] [phone] Hemoglobin (Bld) [Mass/Vol] 12.6 g/dL Low 13.5 - 17.5 [facility] Comment on above: Performed By: #### C BCDF #### [facility] [address] [facility] [place], [place] [phone] Lymphocytes (Bld) [#/Vol] 0.94 10*3/uL Low 1.20 - 4.80 [facility] Comment on above: Performed By: #### C BCDF #### [facility] [address] [facility] [place], [place] [phone] Lymphocytes/100 WBC (Bld) 20.3 % Normal 13.0 - 44.0 [facility] Comment on above: Performed By: #### C BCDF #### [facility] [address] [facility] [place], [place] [phone] MCHC (RBC) [Mass/Vol] 32.9 g/dL Normal 32.0 - 36.0 [facility] Comment on above: Performed By: #### C BCDF #### [facility] [address] [facility] [place], [place] [phone] MCV (RBC) [Entitic vol] 84 fL Normal 80 - 100 [facility] Comment on above: Performed By: #### C BCDF #### [facility] [address] [facility] [place], [place] [phone] Monocytes (Bld) [#/Vol] 0.41 10*3/uL Normal 0.10 - 1.00 [facility] Comment on above: Performed By: #### C BCDF #### [facility] [address] [facility] [place], [place] [phone] Monocytes/100 WBC (Bld) 8.8 % Normal 2.0 - 10.0 [facility] Comment on above: Performed By: #### C BCDF #### [facility] [address] [facility] [place], [place] [phone] Neutrophils (Bld) [#/Vol] 3.16 10*3/uL Normal 1.20 - 7.70 [facility] Comment on above: Performed By: #### C BCDF #### [facility] [address] [facility] [place], [place] [phone] Neutrophils/100 WBC (Bld) 68.1 % Normal 40.0 - 80.0 [facility] Comment on above: Performed By: #### C BCDF #### [facility] [address] [facility] [place], [place] [phone] Platelets (Bld) [#/Vol] 159 10*3/uL Normal 150 - 450 [facility] Comment on above: Performed By: #### C BCDF #### [facility] [address] [facility] [place], [place] [phone] RBC 4.56 x10E12/L Normal 4.50 - 5.90 [facility] Comment on above: Performed By: #### C BCDF #### [facility] [address] [facility] [place], [place] [phone] WBC (Bld) [#/Vol] 4.6 10*3/uL Normal 4.4 - 11.3 [facility] Comment on above: Performed By: #### C BCDF #### [facility] [address] [facility] [place], [place] [phone] COMPREHENSIVE PANELon 2020 Albumin [Mass/Vol] 4.2 g/dL Normal 3.4 - 5.0 [facility] Comment on above: Performed By: #### C MP ####[facility] [facility] [place], [place] [phone] ALP [Catalytic activity/Vol] 57 U/L Normal 33 - 120 [facility] Comment on above: Performed By: #### C MP ####[facility] [facility] [place], [place] [phone] ALT [Catalytic activity/Vol] 21 U/L Normal 10 - 52 [facility] Comment on above: Result Comment: Yanni ents treated with Sulfasalazine may generate falsely decreased results for ALT. Performed By: #### C MP ####[facility] [facility] [place], [place] [phone] Anion gap [Moles/Vol] 12 mmol/L Normal 10 - 20 [facility] Comment on above: Performed By: #### C MP ####[facility] [facility] [place] [phone] AST [Catalytic activity/Vol] 19 U/L Normal 9 - 39 [facility] Comment on above: Performed By: #### C MP ####[facility] [facility] [place], [place] [phone] Bilirubin [Mass/Vol] 0.4 mg/dL Normal 0.0 - 1.2 [facility] Comment on above: Performed By: #### C MP ####[facility] [facility] [place] [phone] Calcium [Mass/Vol] 9.3 mg/dL Normal 8.6 - 10.3 [facility] Comment on above: Performed By: #### C MP ####[facility] [facility] [place], [place] [phone] Chloride [Moles/Vol] 103 mmol/L Normal 98 - 107 [facility] Comment on above: Performed By: #### C MP ####[facility] [facility] [place], [place] [phone] Creatinine [Mass/Vol] 1.02 mg/dL Normal 0.50 - 1.30 [facility] Comment on above: Performed By: #### C MP ####[facility] [facility] [place], [place] [phone] GFR- AM. >60 Normal >60 [facility] Comment on above: Result Comment: CALC ULATIONS OF ESTIMATED GFR ARE PERFORMED USING THE MDRD STUDY EQUATION FOR THE IDMS-TRACEABLE CREATININE METHODS. CLIN CHEM 2007;53:766-72 Performed By: #### C MP ####[facility] [facility] [place], [place] [phone] GFR-NON AM. >60 Normal >60 [facility] Comment on above: Performed By: #### C MP ####[facility] [facility] [place], [place] [phone] Glucose [Mass/Vol] 82 mg/dL Normal 74 - 99 [facility] Comment on above: Performed By: #### C MP ####[facility] [facility] [place] [phone] HCO3 (Bld) [Moles/Vol] 27 mmol/L Normal 21 - 32 [facility] Comment on above: Performed By: #### C MP ####[facility] [facility] [place], [place] [phone] Potassium [Moles/Vol] 3.8 mmol/L Normal 3.5 - 5.3 [facility] Comment on above: Performed By: #### C MP ####[facility] [place], [place] [phone] Protein [Mass/Vol] 6.9 g/dL Normal 6.4 - 8.2 [facility] Comment on above: Performed By: #### C MP ####[facility] [place], [place] [phone] Sodium [Moles/Vol] 138 mmol/L Normal 136 - 145 [facility] Comment on above: Performed By: #### C MP ####[facility] [place], [place] [phone] Urea nitrogen [Mass/Vol] 18 mg/dL Normal 6 - 23 [facility] Comment on above: Performed By: #### C MP ####[facility] [place], [place] [phone] CT Angio Abdomen Pelvis with Contrast including non cont Image with Post Procedureon 05-08-2021 CT Abdomen and Pelvis and CT angiogram Abdominal aorta W contrast IV Normal MP-Ayush [facility] Alvar[facility] MD Practice Work Phone: CT Angio Cheston 05-08-2021 CTA Chest vessels Normal FLORINDA-Ny or [facility] Alvarado MD Practice Work Phone: CTA ABDOMEN PELVIS WITH CONT INCL NON CONT IMAGE W POST PROCon 05-08-2021 CTA ABDOMEN PELVIS WITH CONT INCL NON CONT IMAGE W POST PROC STUDY: CT Angiogram of the Chest, Abdomen, and Pelvis; 05/08/2021 7:56 PM. INDICATION: Right flank pain. History of thoracic aortic aneurysm. COMPARISON: CTA CAP 04/16/2021. ACCESSION NUMBER(S): [id number], [id number] ORDERING CLINICIAN: ARIE NGUYEN MD TECHNIQUE: Helical [...] MD Electronically signed by: SAHIL PARKS MD [facility] Complete Blood Count + Lorena conner 05-08-2021 Basophils/100 WBC (Bld) 0.2 % 0.0 - 2.0 Shanae [facility] Practice Work Phone: [phone] Erythrocyte distribution width (RBC) [Ratio] 13.0 % See Below [facility] bianca [facility] Practice Work Phone: [phone] Comment on above: Reference Range: 11. 5 - 14.5 Hematocrit (Bld) [Volume fraction] 38.3 % below low threshold See Below KimberlyNY[facility] SystemYareli valenzuela [facility] Practice Work Phone: [phone] Comment on above: Reference Range: 41. 0 - 52.0 Hemoglobin (Bld) [Mass/Vol] 12.6 g/dL below low threshold See Below FLORINDAAyush [facility] Center[facility]areli valenzuela [facility] Practice Work Phone: [phone] Comment on above: Reference Range: 13. 5 - 17.5 Lymphocytes/100 WBC (Bld) 20.3 % See Below [facility]ENTERAyushNY[facility] SystemYareli valenzuela [facility] Practice Work Phone: [phone] Comment on above: Reference Range: 13. 0 - 44.0 MCHC (RBC) [Mass/Vol] 32.9 g/dL See Below SAQIB AlejandraNYU Lang[facility] Health SystemYareli valenzuela [facility] Practice Work Phone: [phone] Comment on above: Reference Range: 32. 0 - 36.0 MCV (RBC) [Entitic vol] 84 fL 80 - 100 [facility] bianca [facility] Practice Work Phone: [phone] Monocytes/100 WBC (Bld) 8.8 % 2.0 - 10.0 [facility]ush[facility] bianca [facility] Practice Work Phone: [phone] Neutrophils/100 WBC (Bld) 68.1 % See Below [facility] valenzuela [facility] Practice Work Phone: [phone] Comment on above: Reference Range: 40. 0 - 80.0 Platelets (Bld) [#/Vol] 159 10*3/uL 150 - 450 [facility] [place] [address] Practice Work Phone: RBC (Bld) [#/Vol] 4.56 {x10E12/L} See Below [address] Practice Work Phone: Comment on above: Reference Range: 4.5 0 - 5.90 WBC (Bld) [#/Vol] 4.6 10*3/uL 4.4 - 11.[address] Practice Work Phone: [phone] Complete Blood Count + Differential 0.01 {x10E9/L} See Below [address] Practice Work Phone: [phone] Comment on above: Reference Range: 0.0 0 - 0.10 Complete Blood Count + Differential 0.11 {x10E9/L} See Below [address] Practice Work Phone: [phone] Comment on above: Reference Range: 0.0 0 - 0.70 Complete Blood Count + Differential 0.41 {x10E9/L} See Below [facility] [address] Practice Work Phone: Comment on above: Reference Range: 0.1 0 - 1.00 Complete Blood Count + Differential 0.94 {x10E9/L} below low threshold See Below [address] Practice Work Phone: [phone] Comment on above: Reference Range: 1.2 0 - 4.80 Complete Blood Count + Differential 3.16 {x10E9/L} See Below [address] Practice Work Phone: Comment on above: Reference Range: 1.2 0 - 7.70 Complete Blood Count + Differential 2.4 % 0.0 - 6.[address] Practice Work Phone: Complete Blood Count + Differential 0.2 % 0.0 - 0.9 [place] [address] Practice Work Phone: [phone] Comment on above: Immature Granulocyte Count (IG) includes promyelocytes, myelocytes and metamyelocytes but does not include bands. Percent differential counts (%) should be interpreted in the context of the absolute cell counts (cells/L). Laboratory - Chemistry and C hemistry - challengeon 05-08-2021 Albumin BCP dye [Mass/Vol] 4.2 g/dL 3.4 - 5.0 [place] [address] Practice Work Phone: [phone] ALP [Catalytic activity/Vol] 57 U/L 33 - [address] Practice Work Phone: [phone] ALT With P-5'-P [Catalytic activity/Vol] 21 U/L 10 - [address] Practice Work Phone: [phone] Comment on above: Patients treated wit h Sulfasalazine may generate falsely decreased results for ALT. Anion gap [Moles/Vol] 12 mmol/L 10 - 20 [place] [address] Practice Work Phone: [phone] AST With P-5'-P [Catalytic activity/Vol] 19 U/L 9 - 39 [place] [address] Practice Work Phone: [phone] Bilirubin [Mass/Vol] 0.4 mg/dL 0.0 - 1.2 MP-C [place] [address] Practice Work Phone: [phone] Calcium [Mass/Vol] 9.3 mg/dL 8.6 - 10.3 -Con nor [place] [address] Practice Work Phone: [phone] Chloride [Moles/Vol] 103 mmol/L 98 - 107 [facility] [address] Practice Work Phone: [phone] CO2 [Moles/Vol] 27 mmol/L 21 - 32 [place] [address] Practice Work Phone: Creatinine [Mass/Vol] 1.02 mg/dL See Below [facility] [address] Practice Work Phone: Comment on above: Reference Range: 0.5 0 - 1.30 Glucose [Mass/Vol] 82 mg/dL 74 - [address] Practice Work Phone: [phone] Potassium [Moles/Vol] 3.8 mmol/L 3.5 - 5.[address] Practice Work Phone: [phone] Protein [Mass/Vol] 6.9 g/dL 6.4 - 8.[address] Practice Work Phone: [phone] Sodium [Moles/Vol] 138 mmol/L 136 - [address] Practice Work Phone: Urea nitrogen [Mass/Vol] 18 mg/dL 6 - [address] Practice Work Phone: [phone] No Panel Informationon 05-08 >60 >[address] Practice Work Phone: Comment on above: [...] Immature Granulocyte (more content not included)... Normal [facility] Risk Screen - Adult Emergenc yon 05-08-2021 [...] instruction; verbal instruction Cultural Considerationsnone Developmental Considerationsnone Presybeterian Considerationsnone Learning Assessment (Other Learner): Learning Assessment (Other Learner): Other learner availableno Pressure Injury/TB/Substance: Pressure Injury: Pressure Injury Present on Admissionno Do you have a coughno Smoking Statusnever smoker Admission Risk Screen: Significant IndicatorsComplete CAGE: CAGE: Is this an injured patient at a Trauma Center ([facility]/[place] /[place]): no Electronic Signatures: Rae Duval (BROOKLYNN) (Signed 08-May-2021 20:10) Authored: Preferred Language, Advanced Directives, Family Violence Adult, Learning Assessment (Patient), Learning Assessment (Other Learner), Pressure Injury/TB/Substance, Pressure Injury, CAGE Last Updated: 08-May-2021 20:10 by Rae Duval (BROOKLYNN) [facility] TH CT ANGIO CHESTon 05-08-20 CT ANGIO CHEST STUDY: CT Angiogram of the Chest, Abdomen, and Pelvis; 05/08/2021 7:56 PM. INDICATION: Right flank pain. History of thoracic aortic aneurysm. COMPARISON: CTA CAP 04/16/2021. ACCESSION NUMBER(S): [id number], [id number] ORDERING CLINICIAN: ARIE NGUYEN MD TECHNIQUE: Helical [...] Electronically signed by: SAHIL PARKS MD Normal [facility] TROPONIN Ion 05-08-2021 Troponin I.cardiac [Mass/Vol] ng/mL Normal 0.00 - 0.03 [facility] Comment on above: Result Comment: LESS THAN [...] is performed using different testing methodology at [facility] than at other [facility] [facility] [facility]. Direct result comparisons should only be made within the same method. Performed By: #### T ROP2 ####[facility] [place], [place] [phone] Triage - EDon 05-08-2021 Triage - ED Chart Review: ARRIVAL INFORMATION Mode of Arrival: ambulance Agency Name: [facility] CHIEF COMPLAINT HOSEA ALVAREZ is a Male [...] Updated: 08-May-2021 17:20 by Jamie Puentes (EMT-P) [facility] Troponin I, Serumon 05-08-20 21 Troponin I.cardiac [Mass/Vol] ng/mL See Below [facility] bianca [facility] Practice Work Phone: Comment on above: Reference [...] is performed using different testing methodology at [facility] than at [facility]. Direct result comparisons should only be made within the same method. URINALYSISon 05-08-2021 Appearance (U) CLEAR Normal CLEAR [facility] Comment on above: Performed By: #### U A #### [facility] [address] [facility] [place], [place] [phone] Bilirubin Ql (U) Negative Normal NEGATIVE Regio nal [facility] Comment on above: Performed By: #### U A #### [facility] [address] [facility] [place], [place] [phone] Color (U) STRAW Normal STRAW,YELLOW [facility] Comment on above: Performed By: #### U A #### [facility] [address] [facility] [place], [place] [phone] Glucose Ql (U) Negative Normal NEGATIVE [facility] Comment on above: Performed By: #### U A #### [facility] [address] [facility] [place], [place] [phone] Hemoglobin Ql (U) Negative Normal NEGATIVE [facility] Sara onal [facility] Comment on above: Performed By: #### U A #### [facility] [address] [facility] [place], [place] [phone] Ketones Ql (U) Negative Normal NEGATIVE [facility] Comment on above: Performed By: #### U A #### [facility] [address] [facility] [place], [place] [phone] Leukocyte esterase Test strip Ql (U) Negative Normal NEGATIVE [facility] Comment on above: Performed By: #### U A #### [facility] [address] [facility] [place], [place] [phone] Nitrite Ql (U) Negative Normal NEGATIVE [facility] Comment on above: Performed By: #### U A #### [facility] [address] [facility] [place], [place] [phone] pH (U) 6.0 [pH] Normal 5.0 - 8.0 [facility] Comment on above: Performed By: #### U A #### [facility] [address] [facility] [place] [phone] Protein Ql (U) Negative Normal NEGATIVE [facility] Comment on above: Performed By: #### U A #### [facility] [address] [facility], [place] [phone] Specific gravity (U) [Rel density] 1.005 Normal 1.005 - 1.035 [facility] Comment on above: Performed By: #### U A #### [facility] [address] [facility], [place] [phone] Urobilinogen (U) [Mass/Vol] mg/dL Normal 0.0 - 1.9 [facility] campus Comment on above: Performed By: #### U A #### [facility] [address] [facility] [facility], [place] [id number] Urinalysison 05-08-2021 Color (U) STRAW See Below [facility] bianca [facility] Practice Work Phone: [phone] Comment on above: Reference Range: STR AW,YELLOW Glucose Ql (U) Negative NEGATIVE [facility] bianca [facility] Practice Work Phone: [phone] Ketones Ql (U) Negative NEGATIVE [facility] bianca [facility] Practice Work Phone: [phone] Leukocyte esterase Test strip Ql (U) Negative NEGATIVE [facility] [place] [address] Practice Work Phone: [phone] pH (U) 6.0 [pH] 5.0 - 8.0 [facility] bianca [facility] Practice Work Phone: [phone] Protein (U) [Mass/Vol] Negative NEGATIVE [facility] [place] [address] Practice Work Phone: [phone] RBC (U) [#/Vol] Negative NEGATIVE [place] [address] Practice Work Phone: [phone] Specific gravity (U) [Rel density] 1.005 1 See Below [facility] bianca [facility] Practice Work Phone: [phone] Comment on above: Reference Range: 1.0 05 - 1.035 Urinalysis Negative NEGATIVE [facility] bianca [facility] Practice Work Phone: Urinalysis <2.0 0.0 - 1.9 [facility] bianca [address] Practice Work Phone: Urinalysis CLEAR CLEAR [facility] bianca [facility] Practice Work Phone: Laboratory - Chemistry and [...] G/DL (0.4-1.6 MG/DL) 0.4 - 1.6 MG/DL [facility] GFR/1.73 sq M.predicted MDRD (S/P/Bld) [Vol rate/Area] EGFR 95 mL/min/1.73 m2 (Reference Range: not available) GFR ml/min/1.73m2 Stage ----- 90 1 60-89 2 30-59 3 15-29 4 <15 5 For -Americans, multiply EGFR result by 1.210 Calculation not validated for patients under 18 years of age. Performed at [address] [address] [facility] Glucose [Mass/Vol] Glucose 103 MG/DL H (65-99 MG/DL) High 65 - 99 MG/DL S Magnesium [Mass/Vol] Magnesium 2.0 MG/DL (1.6-3.1 MG/DL) Performed at [address] [address] 1.6 - 3.1 MG/DL S Natriuretic peptide.B prohormone N-Terminal [Mass/Vol] Pro BNP 38 PG/ML (0-138 PG/ML) Reference ranges are based on clinical submission data. These ranges represent the 95th percentile of normal cut-off points. As NT pro-BNP values approach 1000 pg/ml, clinical symptoms are more likely associated with CHF. Performed at [address] [address] 0 - 138 PG/ML S Potassium [Moles/Vol] [...] RATIO (8-21 RATIO) 8 - 21 RATIO [facility] Laboratory - Hematology and Cell countson 05-07-2021 Basophils (Bld) [#/Vol] Abs Baso 0.03 K/UL (0.00-0.22 K/UL) 0.00 - 0.22 K/UL [facility] Basophils/100 WBC (Bld) Basophil 0.90 % (0-1 %) 0 - 1 % [facility] Differential cell count method Nom (Bld) Diff Type AUTO DIFF (Reference Range: not available) [facility] Eosinophils (Bld) [#/Vol] Abs Eos 0.03 K/UL (0-0.45 K/UL) 0 - 0.45 K/UL [facility] Eosinophils/100 WBC (Bld) Eosinophil 0.90 % (0-3 %) 0 - 3 % [facility] Erythrocyte distribution width (RBC) [Entitic vol] RDW SD 41.1 FL (37.0-54.0 FL) 37.0 - 54.0 FL [facility] Erythrocyte distribution width (RBC) [Ratio] RDW CV 12.9 % (11.7-15.0 %) 11.7 - 15.0 % [facility] Hematocrit (Bld) [Volume fraction] HCT 41.3 % (41-50 %) 41 - 50 % [facility] Hemoglobin (Bld) [Mass/Vol] HGB 13.2 GM/DL L (13.5-16.5 GM/DL) Low 13.5 - 16.5 GM/DL [facility] Immature granulocytes (Bld) [#/Vol] Abs Imm Neut 0.01 K/UL (0.0-0.1 K/UL) 0.0 - 0.1 K/UL [facility] Lymphocytes (Bld) [#/Vol] Abs Lymph 0.72 K/UL L (1.2-3.2 K/UL) Low 1.2 - 3.2 K/UL [facility] Lymphocytes/100 WBC (Bld) Lymphocyte 20.90 % (20-40 %) 20 - 40 % [facility] MCH (RBC) [Entitic mass] MCH 27.8 PG (26-34 PG) 26 - 34 PG S MCHC (RBC) [Mass/Vol] MCHC 32.0 % (31-37 %) 31 - 37 % S MCV (RBC) [Entitic vol] MCV 87.1 FL (80-100 FL) 80 - 100 FL [facility] Monocytes (Bld) [#/Vol] Abs Brown 0.39 K/UL (0-0.8 K/UL) 0 - 0.8 K/UL [facility] Monocytes/100 WBC (Bld) Monocyte 11.30 % H (0-8 %) High 0 - 8 % [facility] Neutrophils (Bld) [#/Vol] Abs.Neut.Calculated 2.26 K/UL (Reference Range: not available) Performed at [address] [address] [facility] Neutrophils (Bld) [#/Vol] Abs Neut 2.26 K/UL (1.8-7.7 K/UL) 1.8 - 7.7 K/UL [facility] Neutrophils.immature/ 100 WBC (Bld) Immature Neut % 0.30 % (0.0-1.0 %) 0.0 - 1.0 % [facility] Nucleated RBC/100 WBC (Bld) [Ratio] NRBCs 0 /100 WBC (0 /100 WBC) [facility] Platelet mean volume (Bld) [Entitic vol] MPV 10.9 CU (7.0-12.6 CU) 7.0 - 12.6 CU [facility] Platelets (Bld) [#/Vol] PLT 165 K/UL (150-450 K/UL) 150 - 450 K/UL S RBC (Bld) [#/Vol] RBC 4.74 M/UL (4.5-5 .5 M/UL) 4.5 - 5.5 M/UL [facility] Segmented neutrophils/100 WBC (Bld) Granulocyte 65.70 % (50-70 %) 50 - 70 % [facility] WBC (Bld) [#/Vol] WBC 3.4 K/UL L (4.5- 11.0 K/UL) Low 4.5 - 11.0 K/UL [facility] No Panel Informationon 05-07 HS Troponin T Delta 5 H (0-4 ) Performed at [address] [address] High 0 - 4 [employer] [facility] EKG (Reference Range : not available) Ventricular Rate : 91 BPM Atrial Rate : 91 BPM P-R Interval : 160 ms QRS Duration : 100 ms Q-T Interval : 342 ms QTC Calculation(Bazett) : 420 ms Calculated P Wren : 36 degrees Calculated R Wren : -29 degrees Calculated T Wren : 24 degrees Diagnosis:Normal sinus rhythm Poor R wave progression Abnormal ECG When compared with ECG of 06-MAY-2021 09:58, No significant change was found Confirmed by ROBERTH STORY ([id number]) on 05/07/2021 11:44:56 AM See also the report from this date [facility] Laboratory - Chemistry and C hemistry - [...] under 18 years of age. Performed at [address] [address] [facility] Glucose [Mass/Vol] Glucose 99 MG/DL (65 -99 MG/DL) 65 - 99 MG/DL [facility] Potassium [Moles/Vol] Potassium R 4.2 MM OL/L (3.4-5.1 MMOL/L) 3.4 - 5.1 MMOL/L [facility] Sodium [Moles/Vol] Sodium 139 MMOL/L (133-145 MMOL/L) 133 - 145 MMOL/L [facility] Troponin T.cardiac [Mass/Vol] HS Troponin T,Gen 5 [...] until 8 hours following last biotin administration. [facility] Urea nitrogen [Mass/Vol] BUN 17 MG/DL (8-25 MG/DL) 8 - 25 MG/DL [facility] Urea nitrogen/Creatinine [Mass ratio] BUN Creatinine Ratio 18.9 RATIO (8-21 RATIO) 8 - 21 RATIO [facility] Laboratory - Coagulationon 0 05-06-2021 Fibrin D-dimer [...] IN PATIENTS RECEIVING ANTI-COAGULATION THERAPY. Performed at [address] [address] 0.19 - 0.50 MG/L FEU [facility] Laboratory - Hematology and Cell countson 05-06-2021 Basophils (Bld) [#/Vol] Abs Baso 0.01 K/UL (0.00-0.22 K/UL) 0.00 - 0.22 K/UL [facility] Basophils/100 WBC (Bld) Basophil 0.30 % (0-1 %) 0 - 1 % [facility] Differential cell count method Nom (Bld) Diff Type AUTO DIFF (Reference Range: not available) [facility] Eosinophils (Bld) [#/Vol] Abs Eos 0.08 K/UL (0-0.45 K/UL) 0 - 0.45 K/UL [facility] Eosinophils/100 WBC (Bld) Eosinophil 2.70 % (0-3 %) 0 - 3 % [facility] Erythrocyte distribution width (RBC) [Entitic vol] RDW SD 40.4 FL (37.0-54.0 FL) 37.0 - 54.0 FL [facility] Erythrocyte distribution width (RBC) [Ratio] RDW CV 13.0 % (11.7-15.0 %) 11.7 - 15.0 % [facility] Hematocrit (Bld) [Volume fraction] HCT 39.1 % L (41-50 %) Low 41 - 50 % [facility] Hemoglobin (Bld) [Mass/Vol] HGB 12.9 GM/DL L (13.5-16.5 GM/DL) Low 13.5 - 16.5 GM/DL [facility] Immature granulocytes (Bld) [#/Vol] Abs Imm Neut [...] 100 FL S Monocytes (Bld) [#/Vol] Abs Brown 0.34 K/UL (0-0.8 K/UL) 0 - 0.8 K/UL [facility] Monocytes/100 WBC (Bld) Monocyte 11.40 % H (0-8 %) High 0 - 8 % [facility] Neutrophils (Bld) [#/Vol] Abs.Neut.Calculated 1.70 K/UL (Reference Range: not available) Performed at [address] [address] [facility] Neutrophils (Bld) [#/Vol] Abs Neut 1.70 K/UL L (1.8-7.7 K/UL) Low 1.8 - 7.7 K/UL S Neutrophils.immature/ 100 WBC (Bld) Immature Neut % 0.30 % (0.0-1.0 %) 0.0 - 1.0 % [facility] Nucleated RBC/100 WBC (Bld) [Ratio] NRBCs 0 /100 WBC (0 /100 WBC) S Platelet mean volume (Bld) [Entitic vol] MPV 11.3 CU (7.0-12.6 CU) 7.0 - 12.6 CU [facility] Platelets (Bld) [#/Vol] PLT 148 K/UL L (150-450 K/UL) Low 150 - 450 K/UL [facility] [employer] RBC (Bld) [#/Vol] RBC 4.54 M/UL (4.5-5 .5 M/UL) 4.5 - 5.5 M/UL [facility] Segmented neutrophils/100 WBC (Bld) Granulocyte 57.40 % (50-70 %) 50 - 70 % [facility] WBC (Bld) [#/Vol] WBC 3.0 K/UL L (4.5- 11.0 K/UL) Low 4.5 - 11.0 K/UL [facility] No Panel Informationon 05-06 HS Troponin T Delta 0 (0-4 ) Performed at [address] [address] 0 - 4 [facility] XR Chest 2 Views (PA and lat) (Reference Range: not available) *FINAL Date of Service: 05/06/2021 12:10 Adm #: [id number] Reading Dr:SOHAIL MARINA Signoff Dr: SOHAIL MARINA [...] thoracic spine. Impression: No acute cardiopulmonary disease. [id number] This report has been produced using speech recognition. Original Interpreting Physician: SOHAIL MARINA M.D. Original Transcribed by/Date: [facility] May 06 2021 12:11P Original Electronically Signed by/Date: SOHAIL MARINA M.D. May 06 2021 12:11P Addendum Interpreting Physician: Addendum Transcribed by/Date: NO ADDENDUM Addendum Electronically Signed by/Date: [facility] HS Troponin T Delta No previous result Performed at [address] [address] (0-4 ) 0 - 4 S Laboratory [...] under 18 years of age. Performed at [address] [address] [facility] Glucose [Mass/Vol] Glucose 88 MG/DL (65 -99 MG/DL) 65 - 99 MG/DL [facility] pH (U) Urine pH 5.0 (4.6-8.0 ) 4.6 - 8.0 L Potassium [Moles/Vol] Potassium R 4.0 MM OL/L (3.4-5.1 MMOL/L) 3.4 - 5.1 MMOL/L [facility] Sodium [Moles/Vol] Sodium 135 MMOL/L (133-145 MMOL/L) 133 - 145 MMOL/L [facility] Specific gravity (U) [Rel density] Urine Sp [place] 1.003 L (1.005-1.030 ) Low 1.005 - 1.030 [facility] Urea nitrogen [Mass/Vol] BUN 12 MG/DL (8-25 MG/DL) 8 - 25 MG/DL [facility] Urea nitrogen/Creatinine [Mass ratio] BUN Creatinine Ratio 13.3 RATIO (8-21 RATIO) 8 - 21 RATIO [facility] Urobilinogen Ql (U) Uro NORMAL MG/DL (0- 1.0 MG/DL) 0 - 1.0 MG/DL [facility] Laboratory - Hematology and Cell countson 05-02-2021 Basophils (Bld) [#/Vol] Abs Baso 0.02 K/UL (0.00-0.22 K/UL) 0.00 - 0.22 K/UL [facility] Basophils/100 WBC (Bld) Basophil 0.50 % (0-1 %) 0 - 1 % [facility] Differential cell count method Nom (Bld) Diff Type AUTO DIFF (Reference Range: not available) [facility] Eosinophils (Bld) [#/Vol] Abs Eos 0.10 K/UL (0-0.45 K/UL) 0 - 0.45 K/UL S Eosinophils/100 WBC (Bld) Eosinophil 2.60 % (0-3 %) 0 - 3 % [facility] Erythrocyte distribution width (RBC) [Entitic vol] RDW SD 40.5 FL (37.0-54.0 FL) 37.0 - 54.0 FL [facility] Erythrocyte distribution width (RBC) [Ratio] RDW CV 13.1 % (11.7-15.0 %) 11.7 - 15.0 % [facility] Hematocrit (Bld) [Volume fraction] HCT 37.1 % L (41-50 %) Low 41 - 50 % [facility] Hemoglobin (Bld) [Mass/Vol] HGB 12.3 GM/DL L (13.5-16.5 GM/DL) Low 13.5 - 16.5 GM/DL [facility] Hemoglobin Ql (U) Blood NEGATIVE (NEG ) [facility] Immature granulocytes (Bld) [#/Vol] Abs Imm Neut 0.01 K/UL (0.0-0.1 K/UL) 0.0 - 0.1 K/UL [facility] Lymphocytes (Bld) [#/Vol] Abs Lymph 1.10 K/UL L (1.2-3.2 K/UL) Low 1.2 - 3.2 K/UL [facility] Lymphocytes/100 WBC (Bld) Lymphocyte 28.80 % (20-40 %) 20 - 40 % [facility] MCH (RBC) [Entitic mass] MCH 28.7 PG (26-34 PG) 26 - 34 PG MCHC (RBC) [Mass/Vol] MCHC 33.2 % (31-37 %) 31 - 37 % S MCV (RBC) [Entitic vol] MCV 86.5 FL (80-100 FL) 80 - 100 FL [facility] Monocytes (Bld) [#/Vol] Abs Brown 0.47 K/UL (0-0.8 K/UL) 0 - 0.8 K/UL [facility] Monocytes/100 WBC (Bld) Monocyte 12.30 % H (0-8 %) High 0 - 8 % [facility] Neutrophils (Bld) [#/Vol] Abs.Neut.Calculated 2.12 K/UL (Reference Range: not available) Performed at [address] [address] [facility] Neutrophils (Bld) [#/Vol] Abs Neut 2.12 K/UL (1.8-7.7 K/UL) 1.8 - 7.7 K/UL [facility] Neutrophils.immature/ 100 WBC (Bld) Immature Neut % 0.30 % (0.0-1.0 %) 0.0 - 1.0 % [facility] Nucleated RBC/100 WBC (Bld) [Ratio] NRBCs 0 /100 WBC (0 /100 WBC) [facility] Platelet mean volume (Bld) [Entitic vol] MPV 11.7 CU (7.0-12.6 CU) 7.0 - 12.6 CU [facility] Platelets (Bld) [#/Vol] PLT 156 K/UL (150-450 K/UL) 150 - 450 K/UL [facility] RBC (Bld) [#/Vol] RBC 4.29 M/UL L (4.5 -5.5 M/UL) Low 4.5 - 5.5 M/UL [facility] Segmented neutrophils/100 WBC (Bld) Granulocyte 55.50 % (50-70 %) 50 - 70 % [facility] WBC (Bld) [#/Vol] WBC 3.8 K/UL L (4.5- 11.0 K/UL) Low 4.5 - 11.0 K/UL [facility] Laboratory - Specimen inform ationon 05-02-2021 Clarity (U) Urine Clarity CLEAR (Reference Range: not available) [facility] Color (U) Urin color COLORLESS (Reference Range: not available) [facility] Laboratory - Urinalysison Bacteria Auto Ql (U) Bacteria NEGATIVE (Reference Range: not available) [facility] Epithelial cells.squamous Auto Ql (U) Urine squamous epi NONE SEEN /HPF (Reference Range: not available) [facility] Glucose Auto test strip (U) [Mass/Vol] Gluc NEGATIVE mg/dL (NEG mg/dL) [facility] Hemoglobin Auto test strip Ql (U) RBC NONE SEEN /HPF (0-3 /HPF) 0 - 3 /HPF [facility] Hyaline casts Auto Ql (U) Urine hyaline cast NONE SEEN /LPF (Reference Range: not available) [facility] Ketones Auto test strip Ql (U) Urine Ketone NEGATIVE (NEG ) [facility] Leukocyte esterase Auto test strip Ql (U) Leuk NEGATIVE (NEG ) [facility] Nitrite Auto test strip Ql (U) Nit NEGATIVE (NEG ) [facility] Protein (U) [Mass/Vol] Prot NEGATIVE mg/dL (NEG mg/dL) [facility] WBC Auto (Urine sed) [#/Area] WBC NONE SEEN /HPF (0-3 /HPF) 0 - 3 /HPF [facility] No Panel Informationon 05-02 CT Abdomen/Pelvis wo oral or IV Contrast (Reference Range: not available) *FINAL Date of Service: 05/02/2021 18:41 Adm #: [id number] Reading Dr:BRYAN BOLANOS Signoff Dr: BRYAN BOLANOS [...] Normal appendix. Small fat-containing right inguinal hernia. [id number] This report has been produced using speech [...] Physician: BRYAN BOLANOS M.D. Original Transcribed by/Date: [facility] May 02 2021 7:18P Original Electronically Signed by/Date: BRYAN BOLANOS M.D. May 02 2021 7:18P Addendum Interpreting Physician: Addendum Transcribed by/Date: NO ADDENDUM Addendum Electronically Signed by/Date: [facility] Microscopic AUTOMATI C MICROSCOPIC URINES (Reference Range: not available) [facility] Reflex to Urine Cult ure CULTURE NOT INDICATED Performed at [place] [address] (Reference Range: not available) [facility] Established Visit (Gastroent erology)on 04-25-2021 Established Visit [...] cancer; JOSE = N; Verified Transmission to [id number]; Last Updated By: System, Corrine; 04/25/2021 7:01:37 PM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 kg85.7 kilogram(s)(3) Weight in kkj207.9 pound(s) Weight Methodactual (measured) (4) Scale Typestanding Height in cm165.1 centimeter(s) Height in feet5 feet(3) Height in inches5 inch(es)(3) Height Methodstated BMI (kg/m2)31.44 square meter RSP Based Care: Recent Change in Mood/Behaviordenies Major Change/Loss/Stressor/Fea rsmedical condition, self Techniques to [place] with Loss/Stress/Changemedita tion; substance use How would [...] this hospitalizationWould like to speak with a Vp [employer] Is there anything we need to know [...] Living Arrangementsapartment Services Anticipated at Transitionmedical specialist; senior case manager [facility]ipated [facility] Significant IndicatorsComplete Information Review: Allergies, [...] From 1. Vital Signs 17-Apr-2021 03:[address] [facility] Provider Note - ED v2on 07-2 6-2021 [...] Prehospital and initial EKG transmitted to the quality improvement coordinator (rn) who reviewed EKGs and at this time [...] Name:Renal art (more content not included)... Normal [facility] TROPONIN Ion 04-17-2021 Troponin I.cardiac [Mass/Vol] ng/mL Normal 0.00 - 0.03 [facility] Comment on above: Result Comment: [...] is performed using different testing methodology at [facility] than at other [facility]. Direct result comparisons should only be made within the same method. Performed By: #### T ROP2 #### [facility] [address] [place] [address] TROPONIN I Canceled Normal [facility] Comment on above: Order Comment: [...] is performed using different testing methodology at [facility] than at other [facility]. Direct result comparisons should only be made within the same method. Performed By: #### T ROP2 ####[facility] [id number] [place] [address] Troponin I, Serumon 07-26-20 21 Troponin I.cardiac [Mass/Vol] ng/mL See Below MG-Gastroente patoged-Say l 6 [facility] Work Phone: Comment on above: [...] is performed using different testing methodology at [facility] than at other [facility]. Direct result comparisons should only be made within the same method. BASIC METABOLIC PANEL 03-24 Anion gap [Moles/Vol] 15 mmol/L Normal 10 - 20 [facility] Comment on above: Performed By: #### B MP ####[id number] [place] [address] Calcium [Mass/Vol] 8.7 mg/dL Normal 8.6 - 10.3 [facility] Comment on above: Performed By: #### B MP ####[id number] [place] [address] Chloride [Moles/Vol] 103 mmol/L Normal 98 - 107 [facility] Comment on above: Performed By: #### B MP ####[id number] [place] [address] Creatinine [Mass/Vol] 0.79 mg/dL Normal 0.50 - 1.30 [facility] Comment on above: Performed By: #### B MP ####[facility] [id number] [place] [address] GFR- AM. >60 Normal >60 [facility] Comment on above: Result Comment: CALC ULATIONS OF ESTIMATED GFR ARE PERFORMED USING THE MDRD STUDY EQUATION FOR THE IDMS-TRACEABLE CREATININE METHODS. CLIN CHEM 2007;53:766-72 Performed By: #### B MP ####[facility] [id number] [place] [address] GFR-NON AM. >60 Normal >60 [facility] Comment on above: Performed By: #### B MP ####[facility] [id number] [place] [address] Glucose [Mass/Vol] 78 mg/dL Normal 74 - 99 [facility] Comment on above: Performed By: #### B MP ####[id number] [place] [id number] HCO3 (Bld) [Moles/Vol] 24 mmol/L Normal 21 - 32 [facility] Comment on above: Performed By: #### B MP ####[id number] [place] [address] Potassium [Moles/Vol] 3.6 mmol/L Normal 3.5 - 5.3 [facility] Comment on above: Performed By: #### B MP ####[id number] [place] [id number] Sodium [Moles/Vol] 138 mmol/L Normal 136 - 145 [facility] Comment on above: Performed By: #### B MP ####[id number] [place] [id number] Urea nitrogen [Mass/Vol] 16 mg/dL Normal 6 - 23 [facility] Comment on above: Performed By: #### B MP ####[id number] [place] [id number] CBC AND DIFFERENTIALon 04-16 % AUTOMATED IMMATURE GRAN 0.3 % Normal 0.0 - 0.9 [facility] Comment on above: Result Comment: Kath ture Granulocyte Count (IG) includes promyelocytes, myelocytes and metamyelocytes but does not include bands. Percent differential counts (%) should be interpreted in the context of the absolute cell counts (cells/L). Performed By: #### C BCDF ####[id number] [place] [id number] Basophils (Bld) [#/Vol] 0.02 10*3/uL Normal 0.00 - 0.10 [facility] Comment on above: Performed By: #### C BCDF ####[facility] [id number] [place] [address] Basophils/100 WBC (Bld) 0.5 % Normal 0.0 - 2.0 [facility] Comment on above: Performed By: #### C BCDF ####[facility] [id number] [place] [address] Eosinophils (Bld) [#/Vol] 0.09 10*3/uL Normal 0.00 - 0.70 [facility] Comment on above: Performed By: #### C BCDF ####[facility] [id number] [place] [address] Eosinophils/100 WBC (Bld) 2.4 % Normal 0.0 - 6.0 [facility] Comment on above: Performed By: #### C BCDF ####[facility] [id number] [place] [address] Erythrocyte distribution width (RBC) [Ratio] 13.3 % Normal 11.5 - 14.5 [facility] Comment on above: Performed By: #### C BCDF ####[facility] [id number] [place] [address] Hematocrit (Bld) [Volume fraction] 36.8 % Low 41.0 - 52.0 [facility] Comment on above: Performed By: #### C BCDF ####[facility] [id number] [place] [address] Hemoglobin (Bld) [Mass/Vol] 12.1 g/dL Low 13.5 - 17.5 [facility] Comment on above: Performed By: #### C BCDF ####[facility] [id number] [place] [address] Lymphocytes (Bld) [#/Vol] 1.27 10*3/uL Normal 1.20 - 4.80 [facility] Comment on above: Performed By: #### C BCDF ####[facility] [id number] [place] [address] Lymphocytes/100 WBC (Bld) 33.9 % Normal 13.0 - 44.0 [facility] Comment on above: Performed By: #### C BCDF ####[id number] [place] [address] MCHC (RBC) [Mass/Vol] 32.9 g/dL Normal 32.0 - 36.0 [facility] Comment on above: Performed By: #### C BCDF ####[id number] [place] [address] MCV (RBC) [Entitic vol] 85 fL Normal 80 - 100 [facility] Comment on above: Performed By: #### C BCDF ####[id number] [place] [address] Monocytes (Bld) [#/Vol] 0.41 10*3/uL Normal 0.10 - 1.00 [facility] Comment on above: Performed By: #### C BCDF ####[id number] [place] [address] Monocytes/100 WBC (Bld) 10.9 % Normal 2.0 - 10.0 [facility] Comment on above: Performed By: #### C BCDF ####[facility] [id number] [place] [address] Neutrophils (Bld) [#/Vol] 1.95 10*3/uL Normal 1.20 - 7.70 [facility] Comment on above: Performed By: #### C BCDF ####[facility] [id number] [place] [address] Neutrophils/100 WBC (Bld) 52.0 % Normal 40.0 - 80.0 [facility] Comment on above: Performed By: #### C BCDF ####[id number] [place] [address] Platelets (Bld) [#/Vol] 149 10*3/uL Low 150 - 450 [facility] Comment on above: Performed By: #### C BCDF ####[id number] [place] [address] RBC 4.32 x10E12/L Low 4.50 - 5.90 [facility] Comment on above: Performed By: #### C BCDF ####[facility] [id number] [place] [address] WBC (Bld) [#/Vol] 3.8 10*3/uL Low 4.4 - 11.3 [facility] Comment on above: Performed By: #### C BCDF ####[facility] [id number] [place] [address] CHEST 1 VIEWon 04-16-2021 CHEST 1 VIEW Patient Name: HOSEA ALVAREZ STUDY: CHEST 1 VIEW; 04/16/2021 9:48 pm INDICATION: Chest Pain. COMPARISON: April 13, [address] Same day CT angiogram ACCESSION NUMBER(S): [id number] ORDERING CLINICIAN: GUILLERMO TONY FINDINGS: AP radiograph of the chest was provided. Overlying cardiac leads CARDIOMEDIASTINAL SILHOUETTE: Unchanged cardiomediastinal silhouette. LUNGS: Lungs are clear. ABDOMEN: No remarkable upper abdominal findings. BONES: No acute osseous changes. IMPRESSION: 1. No evidence of acute cardiopulmonary process. Electronically signed by: SANTA WAY MD Normal [facility] CT Angio Cheston 04-16-2021 CTA Chest [...] [facility] Work Phone: [phone] Comment on above: Reference Range: 13. 0 - 44.0 MCHC (RBC) [Mass/Vol] 32.9 g/dL See Below [facility] Work Phone: [phone] Comment on above: Reference Range: 32. 0 - 36.0 MCV (RBC) [Entitic vol] 85 fL 80 - 100 [facility] Work Phone: [phone] Monocytes/100 WBC (Bld) 10.9 % 2.0 - 10.0 [facility] Work Phone: [phone] Neutrophils/100 WBC (Bld) 52.0 % See [...] Count + Differential 0.02 {x10E9/L} See Below [address] Work Phone: [phone] Comment on above: Reference Range: 0.0 0 - 0.10 Complete Blood Count + Differential 0.09 {x10E9/L} See Below [facility] 6 [facility] Work Phone: Comment on above: Reference Range: 0.0 0 - 0.70 Complete Blood Count + Differential 0.41 {x10E9/L} See Below [address] Work Phone: Comment on above: Reference Range: 0.1 0 - 1.00 Complete Blood Count + Differential 1.27 {x10E9/L} See Below [address] Work Phone: Comment on above: Reference Range: 1.2 0 - 4.80 Complete Blood Count + Differential 1.95 {x10E9/L} See Below [address] Work Phone: Comment on above: Reference Range: 1.2 0 - 7.70 Complete Blood Count + Differential 2.4 % 0.0 - 6.[address] Work Phone: Complete Blood Count + Differential 0.3 % 0.0 - 0.[address] Work Phone: Comment on above: Immature Granulocyte Count (IG) includes promyelocytes, myelocytes and metamyelocytes but does not include bands. Percent differential counts (%) should be interpreted in the context of the absolute cell counts (cells/L). Coronavirus 2019 RNA by PCR, Screening Asymptomticon 04-16-2021 Coronavirus 2019 RNA by PCR, Screening Asymptomtic Not detected Normal See Below [facility] 6 [facility] Work Phone: Comment on above: SOURCE: Nasal, Nasop haryngealReference Range: Not Detected.This test has received [facility] Emergency Use Authorization (EUA) and has been verified by [facility]. This test is only authorized for the duration of time that circumstances exist to justify the authorization of the emergency use of in vitro diagnostic tests for the detection of SARS-CoV-2 virus and/or diagnosis of COVID-19 infection under section 564(b)(1) of the Act, 21 U.S.C. 360bbb-3(b)(1), unless the authorization is terminated or revoked sooner. [facility] is certified under CLIA-88 as qualified to perform high complexity testing. Testing is performed in the [facility] laboratory located at [address] [place] [address].SARS-CoV-2/Flu/RSV Multiplex Test: Fact sheet for providers: https://www.fda.gov/media/110218/downloadFact sheet for patients: https://www.fda.gov/media/946110/download HEPATIC FUNCTION PANELon Albumin [Mass/Vol] 4.4 g/dL Normal 3.4 - 5.0 [facility] Comment on above: Performed By: #### H EPFP ####[facility] [id number] [place] [address] ALP [Catalytic activity/Vol] 45 U/L Normal 33 - 120 [facility] Comment on above: Performed By: #### H EPFP ####[facility] [id number] [place] [id number] ALT [Catalytic activity/Vol] 15 U/L Normal 10 - 52 [facility] Comment on above: Result Comment: Yanni ents treated with Sulfasalazine may generate falsely decreased results for ALT. Performed By: #### H EPFP ####[facility] [id number] [place] [address] AST [Catalytic activity/Vol] 14 U/L Normal 9 - 39 [facility] Comment on above: Performed By: #### H EPFP ####[facility] [id number] [place] [address] Bilirubin [Mass/Vol] 0.4 mg/dL Normal 0.0 - 1.2 [facility] Comment on above: Performed By: #### H EPFP ####[facility] [id number] [place] [address] Bilirubin.indirect [Mass/Vol] 0.1 mg/dL Normal 0.0 - 0.3 [facility] Comment on above: Performed By: #### H EPFP ####[facility] [id number] [place] [address] Protein [Mass/Vol] 6.5 g/dL Normal 6.4 - 8.2 [facility] Comment on above: Performed By: #### H EPFP ####[facility] [id number] [place] [address] Hepatic Function Panelon Albumin BCP dye [Mass/Vol] [...] [Mass/Vol] 1.90 mg/dL Normal 1.60 - 2.40 [facility] Comment on above: Performed By: #### M G ####[facility] [id number] [place] [address] Magnesium, Serumon Magnesium [Mass/Vol] 1.90 mg/dL See [...] CLIN CHEM 2007;53:766-72 [email or web address]?RetrieveTestByDateTim e?YopwlgoOD=[id number]&Da te=16-04-2021&Time=21%3a 21%3a24%3a00&TestType=EC G&Site=2&OutputType=PDF& Ext=PDF Shanae Alvarado MD Practice Work Phone: Normal sinus rhythm Leroy Alvarado MD Practice Work Phone: Normal Shanae [facility] [place] 4480 MD Practice Work Phone: [phone] [facility] 4480 HI Practice Work Phone: [phone] [facility] 4480 MD Practice Work Phone: [phone] [facility] 4480 HI Practice Work Phone: [phone] [facility] 4480 MD Practice Work Phone: [phone] [facility] 4480 HI Practice Work Phone: [phone] [facility] 4480 HI Practice Work Phone: [phone] [facility] 4480 HI Practice Work Phone: [phone] [facility] 4480 MD Practice Work Phone: [phone] [facility] 4480 HI Practice Work Phone: [phone] [facility] 4480 HI Practice Work Phone: [phone] [facility] 4480 HI Practice Work Phone: [phone] [facility] 4480 HI Practice Work Phone: [phone] [facility] 4480 [facility] Work Phone: [phone] [facility] 4480 [facility] Work Phone: PT/INRon 04-16-2021 PT Coag (PPP) [Time] 11.5 s Normal 10.1 - 13.3 [facility] Comment on above: Performed By: #### P TINR ####[facility] [id number] [place] [address] PT, INR 1.0 Normal 0.9 - 1.1 [facility] Comment on above: Performed By: #### P TINR ####[facility] [id number] [place] [address] Radiologyon 04-16-2021 XR Chest Single view Normal [facility] Work Phone: TROPONIN Ion 04-16-2021 Troponin I.cardiac [Mass/Vol] ng/mL Normal 0.00 - 0.03 [facility] Comment on above: Result Comment: [...] is performed using different testing methodology at [facility] than at other [facility]. Direct result comparisons should only be made within the same method. Performed By: #### T ROP2 ####[facility] [id number] [place] [address] TROPONIN I Canceled Normal [facility] Comment on above: Order Comment: [...] is performed using different testing methodology at [facility] than at other [facility]. Direct result comparisons should only be made within the same method. Performed By: #### T ROP2 ####[facility] [id number] [place] [address] Troponin I, Serumon 04-16-20 21 Troponin I.cardiac [...] is performed using different testing methodology at [facility] than at other [facility]. Direct result comparisons should only be made within the same method. CBC AND DIFFERENTIALon 04-15 % AUTOMATED IMMATURE GRAN 0.3 % Normal 0.0 - 0.9 [facility] Comment on above: Result Comment: Kath ture Granulocyte Count (IG) includes promyelocytes, myelocytes and metamyelocytes but does not include bands. Percent differential counts (%) should be interpreted in the context of the absolute cell counts (cells/L). Performed By: #### C BCDF ####[facility] [id number] [place] [address] Basophils (Bld) [#/Vol] 0.02 10*3/uL Normal 0.00 - 0.10 [facility] Comment on above: Performed By: #### C BCDF ####[facility] [id number] [place] [address] Basophils/100 WBC (Bld) 0.7 % Normal 0.0 - 2.0 [facility] Comment on above: Performed By: #### C BCDF ####[facility] [id number] [place] [address] Eosinophils (Bld) [#/Vol] 0.05 10*3/uL Normal 0.00 - 0.70 [facility] Comment on above: Performed By: #### C BCDF ####[facility] [id number] [place] [address] Eosinophils/100 WBC (Bld) 1.7 % Normal 0.0 - 6.0 [facility] Comment on above: Performed By: #### C BCDF ####[facility] [id number] [place] [address] Erythrocyte distribution width (RBC) [Ratio] 13.4 % Normal 11.5 - 14.5 [facility] Comment on above: Performed By: #### C BCDF ####[facility] [id number] [place] [address] Hematocrit (Bld) [Volume fraction] 39.0 % Low 41.0 - 52.0 [facility] Comment on above: Performed By: #### C BCDF ####[facility] [id number] [place] [address] Hemoglobin (Bld) [Mass/Vol] 12.5 g/dL Low 13.5 - 17.5 [facility] Comment on above: Performed By: #### C BCDF ####[id number] [place] [address] Lymphocytes (Bld) [#/Vol] 0.74 10*3/uL Low 1.20 - 4.80 [facility] Comment on above: Performed By: #### C BCDF ####[id number] [place] [address] Lymphocytes/100 WBC (Bld) 25.4 % Normal 13.0 - 44.0 [facility] Comment on above: Performed By: #### C BCDF ####[facility] [id number] [place] [address] MCHC (RBC) [Mass/Vol] 32.1 g/dL Normal 32.0 - 36.0 [facility] Comment on above: Performed By: #### C BCDF ####[facility] [id number] [place] [address] MCV (RBC) [Entitic vol] 87 fL Normal 80 - 100 [facility] Comment on above: Performed By: #### C BCDF ####[facility] [id number] [place] [address] Monocytes (Bld) [#/Vol] 0.35 10*3/uL Normal 0.10 - 1.00 [facility] Comment on above: Performed By: #### C BCDF ####[facility] [id number] [place] [address] Monocytes/100 WBC (Bld) 12.0 % Normal 2.0 - 10.0 [facility] Comment on above: Performed By: #### C BCDF ####[facility] [id number] [place] [address] Neutrophils (Bld) [#/Vol] 1.74 10*3/uL Normal 1.20 - 7.70 [facility] Comment on above: Performed By: #### C BCDF ####[facility] [id number] [place] [address] Neutrophils/100 WBC (Bld) 59.9 % Normal 40.0 - 80.0 [facility] Comment on above: Performed By: #### C BCDF ####[facility] [id number] [place] [address] Platelets (Bld) [#/Vol] 145 10*3/uL Low 150 - 450 [facility] Comment on above: Performed By: #### C BCDF ####[facility] [id number] [place] [address] RBC 4.49 x10E12/L Low 4.50 - 5.90 [facility] Comment on above: Performed By: #### C BCDF ####[facility] [id number] [place] [address] WBC (Bld) [#/Vol] 2.9 10*3/uL Low 4.4 - 11.3 [facility] Comment on above: Performed By: #### C BCDF ####[facility] [id number] [place] [address] CHEST 1 VIEWon 04-15-2021 CHEST 1 VIEW Patient Name: HOSEA ALVAREZ STUDY: CHEST 1 VIEW; 04/15/2021 12:30 pm INDICATION: Chest pain. COMPARISON: None. ACCESSION NUMBER(S): [id number] ORDERING CLINICIAN: CIERRA GIMENEZ FINDINGS: CARDIOMEDIASTINAL SILHOUETTE: Cardiomediastinal silhouette is normal in size and configuration. LUNGS: Lungs are clear. ABDOMEN: No remarkable upper abdominal findings. BONES: No acute osseous changes. IMPRESSION: 1. No evidence of acute cardiopulmonary process. Electronically signed by: RAS DE LA PAZ MD Normal [facility] COMPREHENSIVE PANELon 2020 Albumin [Mass/Vol] 4.2 g/dL Normal 3.4 - 5.0 [facility] Comment on above: Performed By: #### C MP ####[id number] [place] [id number] ALP [Catalytic activity/Vol] 49 U/L Normal 33 - 120 [facility] Comment on above: Performed By: #### C MP ####[id number] [place] [address] ALT [Catalytic activity/Vol] 15 U/L Normal 10 - 52 [facility] Comment on above: Result Comment: Yanni ents treated with Sulfasalazine may generate falsely decreased results for ALT. Performed By: #### C MP ####[id number] [place] [address] Anion gap [Moles/Vol] 11 mmol/L Normal 10 - 20 [facility] Comment on above: Performed By: #### C MP ####[id number] [place] [address] AST [Catalytic activity/Vol] 15 U/L Normal 9 - 39 [facility] Comment on above: Performed By: #### C MP ####[id number] [place] [address] Bilirubin [Mass/Vol] 0.4 mg/dL Normal 0.0 - 1.2 [facility] Comment on above: Performed By: #### C MP ####[id number] [place] [address] Calcium [Mass/Vol] 8.9 mg/dL Normal 8.6 - 10.3 [facility] Comment on above: Performed By: #### C MP ####[id number] [place] [address] Chloride [Moles/Vol] 104 mmol/L Normal 98 - 107 [facility] Comment on above: Performed By: #### C MP ####[facility] [id number] [place] [address] Creatinine [Mass/Vol] 1.04 mg/dL Normal 0.50 - 1.30 [facility] Comment on above: Performed By: #### C MP ####[id number] [place] [address] GFR- AM. >60 Normal >60 [facility] Comment on above: Result Comment: CALC ULATIONS OF ESTIMATED GFR ARE PERFORMED USING THE MDRD STUDY EQUATION FOR THE IDMS-TRACEABLE CREATININE METHODS. CLIN CHEM 2007;53:766-72 Performed By: #### C MP ####[facility] [id number] [place] [address] GFR-NON AM. >60 Normal >60 [facility] Comment on above: Performed By: #### C MP ####[facility] [id number] [place] [address] Glucose [Mass/Vol] 99 mg/dL Normal 74 - 99 [facility] Comment on above: Performed By: #### C MP ####[facility] [id number] [place] [address] HCO3 (Bld) [Moles/Vol] 28 mmol/L Normal 21 - 32 [facility] Comment on above: Performed By: #### C MP ####[facility] [id number] [place] [address] Potassium [Moles/Vol] 4.0 mmol/L Normal 3.5 - 5.3 [facility] Comment on above: Performed By: #### C MP ####[id number] [place] [address] Protein [Mass/Vol] 6.7 g/dL Normal 6.4 - 8.2 [facility] Comment on above: Performed By: #### C MP ####[facility] [id number] [place] [address] Sodium [Moles/Vol] 139 mmol/L Normal 136 - 145 [facility] Comment on above: Performed By: #### C MP ####[facility] [id number] [place] [address] Urea nitrogen [Mass/Vol] 17 mg/dL Normal 6 - 23 [facility] Comment on above: Performed By: #### C MP ####[facility] [id number] [place] [address] Complete Blood Count + Diffe neiltialon 04-15-2020 Basophils/100 WBC (Bld) 0.7 % 0.0 - 2.0 [facility] Work Phone: Erythrocyte distribution width (RBC) [Ratio] 13.4 % See Below [facility] Work Phone: [phone] Comment on above: Reference Range: 11. [...] [facility] Work Phone: [phone] Comment on above: Reference Range: 1.2 0 - 7.70 Complete Blood Count + Differential 1.7 % 0.0 - 6.0 [facility] Work Phone: [phone] Complete Blood Count + Differential 0.3 % 0.0 - 0.9 [facility] Work Phone: [phone] Comment on above: Immature Granulocyte Count (IG) includes promyelocytes, myelocytes and metamyelocytes but does not include bands. Percent differential counts (%) should be interpreted in the context of the absolute cell counts (cells/L). EMR ADDONon 04-15-2021 ADDON CONFIRMATION REQUEST REC'D Normal [facility] Comment on above: Performed By: #### E MRAD ####[facility] [id number] [place] [address] Laboratory - Chemistry and C hemistry - challengeon 04-15-2021 Albumin BCP dye [Mass/Vol] 4.2 g/dL 3.4 - 5.0 [facility] Work Phone: [phone] ALP [Catalytic activity/Vol] 49 U/L 33 - 120 [facility] Work Phone: [phone] ALT With P-5'-P [Catalytic activity/Vol] 15 U/L 10 - 52 [facility] Work Phone: [phone] Comment on above: Patients treated wit h Sulfasalazine may generate falsely decreased results for ALT. Anion gap [Moles/Vol] 11 mmol/L 10 - 20 [facility] Work Phone: [phone] AST With P-5'-P [Catalytic activity/Vol] 15 U/L 9 - 39 [facility] Work Phone: [phone] Bilirubin [Mass/Vol] 0.4 mg/dL 0.0 - 1.2 [facility] Work Phone: [phone] Calcium [Mass/Vol] 8.9 mg/dL 8.6 - 10.3 [facility] tro[facility] 6 I Work Phone: [phone] Chloride [Moles/Vol] 104 mmol/L 98 - 107 [facility] 6 I Work Phone: [phone] CO2 [Moles/Vol] 28 mmol/L 21 - 32 [facility] ent[facility] 6 I Work Phone: [phone] Creatinine [Mass/Vol] 1.04 mg/dL See Below [facility] I Work Phone: [phone] Comment on above: Reference Range: 0.5 0 - 1.30 Glucose [Mass/Vol] 99 mg/dL 74 - 99 [facility] 6 I Work Phone: [phone] Potassium [Moles/Vol] 4.0 mmol/L 3.5 - 5.3 [facility] I Work Phone: [phone] Protein [Mass/Vol] 6.7 g/dL 6.4 - 8.2 [facility] Work Phone: [phone] Sodium [Moles/Vol] 139 mmol/L 136 - 145 [facility] Work Phone: [phone] Urea nitrogen [Mass/Vol] 17 mg/dL 6 - 23 [facility] I Work Phone: [phone] MAGNESIUMon 04-15-2021 Magnesium [Mass/Vol] 1.80 mg/dL Normal 1.60 - 2.40 [facility] Comment on above: Performed By: #### M G ####[facility] [id number] [place] [address] Magnesium, Serumon 1 Magnesium [Mass/Vol] 1.80 mg/dL [...] CLIN CHEM 2007;53:766-72 [email or web address] 1:[email or web address] ll?RetrieveTestByDateTim e?KmusjuhUC=[id number]&Da te=15-04-2021&Time=11%3a 56%3a08%3a00&TestType=EC G&Site=2&OutputType=PDF& Ext=PDF [facility] Work Phone: Normal sinus rhythm [facility] Work Phone: Borderline Abnormal [facility] Work Phone: [phone] [facility] Work Phone: [phone] [facility] Work Phone: [phone] [facility] Work Phone: [phone] [facility] Work Phone: [phone] [facility] Work Phone: [phone] [facility] Work Phone: [phone] [facility] Work Phone: [phone] [facility] Work Phone: [phone] [facility] Work [phone] [facility] Work Phone: [phone] [facility] Work Phone: [phone] [facility] Work Phone: [phone] [facility] Work Phone: [phone] [facility] Work Phone: Provider Note - ED v2on [...] nonpleuritic, radiating. He apparently went to the [place] fire department 3 times for this complaint [...] made to minimize errors. Minor errors in beater out may be present. Please call if questions. [...] Name:Chest p (more content not included)... Normal [facility] Radiologyon 04-15-2021 XR Chest Single view [...] instruction; written material Cultural Considerationsnone Developmental Considerationsnone Presybeterian Considerationsnone Learning Assessment (Other Learner): Learning Assessment (Other Learner): Other learner availableno Pressure Injury/TB/Substance: Pressure Injury: Do you have a coughno Smoking Statusformer smoker Alcohol Usedenies Drug Usedenies Admission Risk Screen: Significant IndicatorsComplete CAGE: CAGE: Is this an injured patient at a Trauma Center ([facility] /[place]): no Electronic Signatures: Stefano Garcia (RN) (Signed 15-Apr-2021 12:17) Authored: Preferred Language, Advanced Directives, Family Violence Adult, Learning Assessment (Patient), Learning Assessment (Other Learner), Pressure Injury/TB/Substance, Pressure Injury, CAGE Last Updated: 15-Apr-2021 12:17 by Stefano Garcia ([place]NN) Normal [facility] TROPONIN Ion 04-15-2021 TROPONIN I Canceled Normal [facility] Comment on above: Order Comment: [...] is performed using different testing methodology at [facility] than at other [facility] [facility] [facility]. Direct result comparisons should only be made within the same method. Performed By: #### T ROP2 ####[facility] [id number] [place] [address] Troponin I.cardiac [Mass/Vol] ng/mL Normal 0.00 - 0.03 [facility] Comment on above: Result Comment: [...] is performed using different testing methodology at [facility] than at other [facility] [facility] [facility]. Direct result comparisons should only be made within the same method. Performed By: #### T ROP2 ####[facility] [id number] [place] [address] TROPONIN I Canceled Normal [facility] Comment on above: Order Comment: [...] is performed using different testing methodology at [facility] than at other [facility]. Direct result comparisons should only be made within the same method. Performed By: #### T ROP2 ####[facility] [id number] [place] [address] TSHon 04-15-2021 TSH Qn 0.61 m[IU]/L Normal 0.44 - 3.98 [facility] Comment on above: Result Comment: TSH testing is performed using different testing methodology at [facility] than at other [facility] [facility] [facility]. Direct result comparisons should only be made within the same method. Performed By: #### T SH2 #### [facility] [address]TR [address] [place] [address] TSH - Thyroid Stimulating Ho rmone, Serumon 04-15-2021 TSH Qn 0.61 m[IU]/L See Below [facility]astro[facility] rology-Bolwel l 6 [facility] Work Phone: Comment on above: Reference Range: 0.4 4 - 3.98 TSH testing is performed using different testing methodology at [facility] than at other [facility] [facility] [facility]. Direct result comparisons should only be made [...] BMI (kg/m2): 28.499 Calculated BSA (m2) 2.02 [place] Coma Scale: Best Eye Response: (E4) spontaneous [...] Updated: 15-Apr-2021 12:17 by Stefano Garcia) Normal [facility] Troponin I, Serumon 04-15-20 21 Troponin I.cardiac [Mass/Vol] ng/mL See Below -Berto liu 6 [facility] Work Phone: Comment on above: [...] is performed using different testing methodology at [facility] than at other [facility] [facility]. Direct result comparisons should only be made within the same method. CBC AND DIFFERENTIALon 04-13 % AUTOMATED IMMATURE GRAN 0.3 % Normal 0.0 - 0.9 [facility] Comment on above: Result Comment: Kath ture Granulocyte Count (IG) includes promyelocytes, myelocytes and metamyelocytes but does not include bands. Percent differential counts (%) should be interpreted in the context of the absolute cell counts (cells/L). Performed By: #### C BCDF ####[facility] [id number] [place] [address] Basophils (Bld) [#/Vol] 0.02 10*3/uL Normal 0.00 - 0.10 [facility] Comment on above: Performed By: #### C BCDF ####[facility] [id number] [place] [address] Basophils/100 WBC (Bld) 0.5 % Normal 0.0 - 2.0 [facility] Comment on above: Performed By: #### C BCDF ####[facility] [id number] [place] [address] Eosinophils (Bld) [#/Vol] 0.09 10*3/uL Normal 0.00 - 0.70 [facility] Comment on above: Performed By: #### C BCDF ####[facility] [id number] [place] [address] Eosinophils/100 WBC (Bld) 2.4 % Normal 0.0 - 6.0 [facility] Comment on above: Performed By: #### C BCDF ####[facility] [id number] [place] [address] Erythrocyte distribution width (RBC) [Ratio] 13.4 % Normal 11.5 - 14.5 [facility] Comment on above: Performed By: #### C BCDF ####[facility] [id number] [place] [address] Hematocrit (Bld) [Volume fraction] 38.8 % Low 41.0 - 52.0 [facility] Comment on above: Performed By: #### C BCDF ####[facility] [id number] [place] [address] Hemoglobin (Bld) [Mass/Vol] 12.6 g/dL Low 13.5 - 17.5 [facility] Comment on above: Performed By: #### C BCDF ####[facility] [id number] [place] [address] Lymphocytes (Bld) [#/Vol] 1.19 10*3/uL Low 1.20 - 4.80 [facility] Comment on above: Performed By: #### C BCDF ####[facility] [id number] [place] [address] Lymphocytes/100 WBC (Bld) 31.9 % Normal 13.0 - 44.0 [facility] Comment on above: Performed By: #### C BCDF ####[facility] [id number] [place] [address] MCHC (RBC) [Mass/Vol] 32.5 g/dL Normal 32.0 - 36.0 [facility] Comment on above: Performed By: #### C BCDF ####[facility] [id number] [place] [address] MCV (RBC) [Entitic vol] 86 fL Normal 80 - 100 [facility] Comment on above: Performed By: #### C BCDF ####[facility] [id number] [place] [address] Monocytes (Bld) [#/Vol] 0.38 10*3/uL Normal 0.10 - 1.00 [facility] Comment on above: Performed By: #### C BCDF ####[facility] [id number] [place] [address] Monocytes/100 WBC (Bld) 10.2 % Normal 2.0 - 10.0 [facility] Comment on above: Performed By: #### C BCDF ####[facility] [id number] [place] [address] Neutrophils (Bld) [#/Vol] 2.04 10*3/uL Normal 1.20 - 7.70 [facility] Comment on above: Performed By: #### C BCDF ####[facility] [id number] [place] [address] Neutrophils/100 WBC (Bld) 54.7 % Normal 40.0 - 80.0 [facility] Comment on above: Performed By: #### C BCDF ####[facility] [id number] [place] [address] Platelets (Bld) [#/Vol] 142 10*3/uL Low 150 - 450 [facility] Comment on above: Performed By: #### C BCDF ####[facility] [id number] [place] [address] RBC 4.52 x10E12/L Normal 4.50 - 5.90 [facility] Comment on above: Performed By: #### C BCDF ####[facility] [id number] [place] [address] WBC (Bld) [#/Vol] 3.7 10*3/uL Low 4.4 - 11.3 [facility] Comment on above: Performed By: #### C BCDF ####[facility] [id number] [place] [address] CHEST 2 VIEW PA AND LATon CHEST 2 VIEW PA AND LAT Patient Name: HOSEA ALVAREZ STUDY: TH CHEST 2 VIEW PA AND LAT; 04/13/2021 5:28 pm INDICATION: cp, abd pain. COMPARISON: Chest radiograph 04/12/21 ACCESSION NUMBER(S): [id number] ORDERING CLINICIAN: AMANDA CHOUDHARY FINDINGS: CARDIOMEDIASTINAL SILHOUETTE: Cardiomediastinal silhouette is stable in size and configuration. LUNGS: No interval consolidation or pneumothorax. ABDOMEN: No remarkable upper abdominal findings. BONES: No acute osseous changes. IMPRESSION: 1. No evidence of acute cardiopulmonary process. Electronically signed by: DEDRICK ANGUIANO MD Normal [facility] COMPREHENSIVE PANELon 2020 Albumin [Mass/Vol] 4.5 g/dL Normal 3.4 - 5.0 [facility] Comment on above: Performed By: #### C MP ####[facility] [place] [id number] [place] [address] ALP [Catalytic activity/Vol] 47 U/L Normal 33 - 120 [facility] Comment on above: Performed By: #### C MP ####[facility] [place] [id number] [place] [address] ALT [Catalytic activity/Vol] 15 U/L Normal 10 - 52 [facility] Comment on above: Result Comment: Yanni ents treated with Sulfasalazine may generate falsely decreased results for ALT. Performed By: #### C MP ####[facility] [place] [id number] [place] [address] Anion gap [Moles/Vol] 16 mmol/L Normal 10 - 20 [facility] Comment on above: Performed By: #### C MP ####[facility] [id number] [place] [address] AST [Catalytic activity/Vol] 17 U/L Normal 9 - 39 [facility] Comment on above: Performed By: #### C MP ####[facility] [place] [id number] [place] [address] Bilirubin [Mass/Vol] 0.4 mg/dL Normal 0.0 - 1.2 [facility] [place] Comment on above: Performed By: #### C MP ####[facility] [place] [id number] [place] [address] Calcium [Mass/Vol] 9.2 mg/dL Normal 8.6 - 10.3 [facility] Comment on above: Performed By: #### C MP ####[facility] [id number] [place] [address] Chloride [Moles/Vol] 102 mmol/L Normal 98 - 107 [facility] [place] Comment on above: Performed By: #### C MP ####[facility] [id number] [place] [address] Creatinine [Mass/Vol] 0.80 mg/dL Normal 0.50 - 1.30 [facility] Comment on above: Performed By: #### C MP ####[facility] [place] [id number] [place] [address] GFR- AM. >60 Normal >60 [facility] Comment on above: Result Comment: CALC ULATIONS OF ESTIMATED GFR ARE PERFORMED USING THE MDRD STUDY EQUATION FOR THE IDMS-TRACEABLE CREATININE METHODS. CLIN CHEM 2007;53:766-72 Performed By: #### C MP ####[facility] [id number] [place] [address] GFR-NON AM. >60 Normal >60 [facility] Comment on above: Performed By: #### C MP ####[facility] [id number] [place] [address] Glucose [Mass/Vol] 83 mg/dL Normal 74 - 99 [facility] Comment on above: Performed By: #### C MP ####[facility] [id number] [place] [address] HCO3 (Bld) [Moles/Vol] 24 mmol/L Normal 21 - 32 [facility] Comment on above: Performed By: #### C MP ####[facility] [place] [id number] [place] [address] Potassium [Moles/Vol] 3.6 mmol/L Normal 3.5 - 5.3 [facility] Comment on above: Performed By: #### C MP ####[facility] [id number] [place] [address] Protein [Mass/Vol] 7.0 g/dL Normal 6.4 - 8.2 [facility] Comment on above: Performed By: #### C MP ####[facility] [place] [id number] [place] [address] Sodium [Moles/Vol] 138 mmol/L Normal 136 - 145 [facility] Comment on above: Performed By: #### C MP ####[facility] [id number] [place] [address] Urea nitrogen [Mass/Vol] 11 mg/dL Normal 6 - 23 [facility] Comment on above: Performed By: #### C MP ####[facility] [place] [id number] [place] [id number] Complete Blood Count + Diffe rentialon 04-13-2020 [...] [facility]-Gastroente rology-Bolwel l 6 [facility] Work Phone: [phone] Neutrophils/100 WBC (Bld) 54.7 % See [...] [Moles/Vol] 1.5 mmol/L Normal 0.4 - 2.0 [facility] Comment on above: Result Comment: Jocelyn puncture immediately after or during the administration of Metamizole may lead to falsely low results. Testing should be performed immediately prior to Metamizole dosing. Performed By: #### L ACT ####[facility] [id number] [place] [address] LIPASEon 04-13-2021 Lipase [Catalytic activity/Vol] 15 U/L Normal 9 - 82 [facility] Comment on above: Result Comment: Jocelyn puncture immediately after or during the administration of Metamizole may lead to falsely low results. Testing should be performed immediately prior to Metamizole dosing. U-hhwbgo-b-benzoquinone imine (metabolite of Acetaminophen) will generate erroneously low results in samples for patients that have taken toxic doses of acetaminophen. Performed By: #### L IPAS ####[facility] [id number] [place] [id number] Laboratory - Chemistry and C hemistry - challengeon 04-13-2021 Albumin BCP dye [Mass/Vol] 4.5 g/dL 3.4 - 5.0 [facility]ol[facility]el l [facility] Work Phone: [phone] ALP [Catalytic activity/Vol] 47 U/L 33 - 120 [facility]-Bolwel l 6 [facility] Work Phone: [phone] ALT With P-5'-P [Catalytic activity/Vol] 15 U/L 10 - 52 [facility]-Bolwel l 6 [facility] Work Phone: [phone] Comment on above: Patients treated wit h Sulfasalazine may generate falsely decreased results for ALT. Anion gap [Moles/Vol] 16 mmol/L 10 - 20 [facility]log[facility]-Bolwel l 6 [facility] Work Phone: [phone] AST With P-5'-P [Catalytic activity/Vol] 17 U/L 9 - 39 [facility]log[facility]-Bolwel l 6 [facility] Work Phone: [phone] Bilirubin [Mass/Vol] 0.4 mg/dL 0.0 - 1.2 MG-G astroente rology-Bolwel l 6 [facility] Work Phone: [phone] Calcium [Mass/Vol] 9.2 mg/dL 8.6 - 10.3 MG-Gas troente rology-Bolwel l 6 [facility] Work Phone: [phone] Chloride [Moles/Vol] 102 mmol/L 98 - 107 [facility]-G astroente rology-Bolwel l 6 [facility] Work Phone: [phone] CO2 [Moles/Vol] 24 mmol/L 21 - 32 [facility]astro ente rology-Bolwel l 6 [facility] Work Phone: [phone] Creatinine [Mass/Vol] 0.80 mg/dL See Below [...] - 2.0 MG-Ga stroente rology-Bolwel l 6 [facility] Work Phone: Comment on above: [...] be performed immediately prior to Metamizole dosing. J-kykfwc-y-benzoquinone imine (metabolite of Acetaminophen) will generate erroneously low results in samples for patients that have taken toxic doses of acetaminophen. No Panel Informationon 04-13 >60 >60 [facility]log[facility]-Bolwel l 6 I Work Phone: Comment on above: CALCULATIONS OF NIKOLE MATED GFR ARE PERFORMED USING THE MDRD STUDY EQUATION FOR THE IDMS-TRACEABLE CREATININE METHODS. CLIN CHEM 2007;53:766-72 [email or web address]?RetrieveTestByDateTim e?[email or web address]=[id number]&Da te=13-04-2021&Time=15%3a 22%3a02%3a00&TestType=EC G&Site=2&OutputType=PDF& Ext=PDF [facility] Work Phone: [phone] Normal sinus rhythm [facility] Work Phone: [phone] Abnormal [facility] Work Phone: [phone] [facility] Work Phone: [phone] [facility] Work Phone: [phone] [facility] Work Phone: [phone] [facility] Work Phone: [phone] [facility] Work Phone: [phone] [facility] Work Phone: [phone] [facility] Work Phone: [phone] [facility] Work Phone: [phone] [facility] Work Phone: [phone] [facility] Work Phone: [phone] [facility] Work Phone: [phone] [facility] Work Phone: Provider Note - ED Care [...] sinus rhythm with a normal axis, normal CT and QT intervals, no ST segment elevations [...] Last Updated: 12-Apr-2021 22:36 by Malou Lomax) [facility] Provider Note - ED v2on 03-24 Provider [...] chest pain that the patient rated 8/10 [employer]IC. currently rates 0/10. EKG performed, to MD [...] Status: Pa (more content not included)... Normal [facility] Radiologyon 04-13-2021 XR Chest 2 Views [...] Learning Preferencesverbal instruction Cultural Considerationsnone Developmental Considerationsnone Presybeterian Considerationsnone Learning Assessment (Other Learner): Learning Assessment (Other Learner): Other learner availableno Pressure Injury/TB/Substance: Pressure Injury: Do you have a coughno Smoking Statusformer smoker Admission Risk Screen: Significant IndicatorsComplete CAGE: CAGE: Is this an injured patient at a Trauma Center ([facility] /[place]): no Electronic Signatures: Mahsa Glover (RN) (Signed 13-Apr-2021 16:25) Authored: Preferred Language, Advanced Directives, Family Violence Adult, Learning Assessment (Patient), Learning Assessment (Other Learner), Pressure Injury/TB/Substance, Pressure Injury, CAGE Last Updated: 13-Apr-2021 16:25 by Mahsa Glover ([place]) Normal [facility] TROPONIN Ion 04-13-2021 Troponin I.cardiac [Mass/Vol] ng/mL Normal 0.00 - 0.03 [facility] Comment on above: Result Comment: [...] is performed using different testing methodology at [facility] than at other [facility] [place] [facility]. Direct result comparisons should only be made within the same method. Performed By: #### T ROP2 ####[facility] [id number] [place] [address] TROPONIN I Canceled Normal [facility] Comment on above: Order Comment: [...] is performed using different testing methodology at [facility] than at [facility]. Direct result comparisons should only be made within the same method. Performed By: #### T ROP2 ####[facility] [id number] [place] [address] Troponin I.cardiac [Mass/Vol] ng/mL Normal 0.00 - 0.03 [facility] Comment on above: Result Comment: [...] is performed using different testing methodology at [facility] than at [facility]. Direct result comparisons should only be made within the same method. Performed By: #### T ROP2 ####[facility] [id number] [place] [address] Triage - EDon 04-13-2021 Triage - ED [...] chest pain that the patient rated 8/10 [employer]OWERPL[employer] MECH[employer]IC. currently rates 0/10. EKG performed, to MD [...] BMI (kg/m2): 30.722 Calculated BSA (m2) 2.00 [place] Coma Scale: Best Eye Response: (E4) spontaneous [...] 13-Apr-2021 15:33 by Mahsa Glover (RN) Normal [facility] Troponin I, Serumon 04-13-20 21 Troponin I.cardiac [Mass/Vol] ng/mL See Below MG-Gastroente rology-Bolwel l 6 [facility] Work Phone: Comment on above: [...] is performed using different testing methodology at [facility] than at other [facility] [place] [facility]. Direct result comparisons should only be made within the same method. BASIC METABOLIC PANELon 03-24 Anion gap [Moles/Vol] 11 mmol/L Normal 10 - 20 [facility] Comment on above: Performed By: #### B MP ####[facility] [id number] [place] [address] Calcium [Mass/Vol] 8.9 mg/dL Normal 8.6 - 10.3 [facility] Comment on above: Performed By: #### B MP ####[facility] [id number] [place] [address] Chloride [Moles/Vol] 104 mmol/L Normal 98 - 107 [facility] [place] Comment on above: Performed By: #### B MP ####[facility] [id number] [place] [address] Creatinine [Mass/Vol] 0.90 mg/dL Normal 0.50 - 1.30 [facility] Comment on above: Performed By: #### B MP ####[facility] [id number] [place] [address] GFR- AM. >60 Normal >60 [facility] Comment on above: Result Comment: CALC ULATIONS OF ESTIMATED GFR ARE PERFORMED USING THE MDRD STUDY EQUATION FOR THE IDMS-TRACEABLE CREATININE METHODS. CLIN CHEM 2007;53:766-72 Performed By: #### B MP ####[facility] [id number] [place] [id number] GFR-NON AM. >60 Normal >60 [facility] Comment on above: Performed By: #### B MP ####[facility] [id number] [place] [id number] Glucose [Mass/Vol] 100 mg/dL High 74 - 99 [facility] Comment on above: Performed By: #### B MP ####[facility] [id number] [place] [address] HCO3 (Bld) [Moles/Vol] 27 mmol/L Normal 21 - 32 [facility] Comment on above: Performed By: #### B MP ####[facility] [place] [id number] [place] [id number] Potassium [Moles/Vol] 4.1 mmol/L Normal 3.5 - 5.3 [facility] Comment on above: Result Comment: MILD HEMOLYSIS DETECTED. The result may be falsely elevated due to hemolysis or other interferents. Clinical correlation is recommended. Repeat testing may be considered. Performed By: #### B MP ####[facility] [id number] [place] [id number] Sodium [Moles/Vol] 138 mmol/L Normal 136 - 145 [facility] Comment on above: Performed By: #### B MP ####[facility] [place] [id number] [place] [id number] Urea nitrogen [Mass/Vol] 14 mg/dL Normal 6 - 23 [facility] Comment on above: Performed By: #### B MP ####[facility] [id number] [place] [address] BNPon 04-12-2021 Natriuretic peptide B (Bld) [Mass/Vol] 34 pg/mL Normal 0 - 99 [facility] Comment on above: Result Comment: . <1 00 pg/mL - Heart failure unlikely 100-299 pg/mL - Intermediate probability of acute heart . failure exacerbation. Correlate with clinical . context and patient history. >=300 pg/mL - Heart Failure likely. Correlate with clinical . context and patient history. BNP testing is performed using different testing methodology at [facility] than at other [facility] [facility] [facility]. Direct result comparisons should only be made within the same method. Performed By: #### B NP2 ####[facility] [id number] [place] [address] Blood Pressure Cuff Sizeon 0 04-12-2021 Fall risk assessment a) No falls within the last year [facility] Work Phone: Tobacco use status CPHS b) No [facility] Work Phone: Blood Pressure Cuff Size Large [facility] Work Phone: CBC AND DIFFERENTIALon 04-12 % AUTOMATED IMMATURE GRAN 0.3 % Normal 0.0 - 0.9 [facility] Comment on above: Result Comment: Kath ture Granulocyte Count (IG) includes promyelocytes, myelocytes and metamyelocytes but does not include bands. Percent differential counts (%) should be interpreted in the context of the absolute cell counts (cells/L). Performed By: #### C BCDF ####[facility] [id number] [place] [address] Basophils (Bld) [#/Vol] 0.02 10*3/uL Normal 0.00 - 0.10 [facility] Comment on above: Performed By: #### C BCDF ####[facility] [id number] [place] [address] Basophils/100 WBC (Bld) 0.6 % Normal 0.0 - 2.0 [facility] Comment on above: Performed By: #### C BCDF ####[facility] [id number] [place] [address] Eosinophils (Bld) [#/Vol] 0.09 10*3/uL Normal 0.00 - 0.70 [facility] Comment on above: Performed By: #### C BCDF ####[facility] [id number] [place] [address] Eosinophils/100 WBC (Bld) 2.5 % Normal 0.0 - 6.0 [facility] Comment on above: Performed By: #### C BCDF ####[facility] [id number] [place] [address] Erythrocyte distribution width (RBC) [Ratio] 13.5 % Normal 11.5 - 14.5 [facility] Comment on above: Performed By: #### C BCDF ####[facility] [id number] [place] [address] Hematocrit (Bld) [Volume fraction] 38.4 % Low 41.0 - 52.0 [facility] Comment on above: Performed By: #### C BCDF ####[facility] [id number] [place] [address] Hemoglobin (Bld) [Mass/Vol] 12.4 g/dL Low 13.5 - 17.5 [facility] Comment on above: Performed By: #### C BCDF ####[facility] [id number] [place] [address] Lymphocytes (Bld) [#/Vol] 0.95 10*3/uL Low 1.20 - 4.80 [facility] Comment on above: Performed By: #### C BCDF ####[facility] [id number] [place] [address] Lymphocytes/100 WBC (Bld) 26.8 % Normal 13.0 - 44.0 [facility] Comment on above: Performed By: #### C BCDF ####[facility] [id number] [place] [address] MCHC (RBC) [Mass/Vol] 32.3 g/dL Normal 32.0 - 36.0 [facility] Comment on above: Performed By: #### C BCDF ####[facility] [id number] [place] [address] MCV (RBC) [Entitic vol] 86 fL Normal 80 - 100 [facility] Comment on above: Performed By: #### C BCDF ####[facility] [id number] [place] [address] Monocytes (Bld) [#/Vol] 0.36 10*3/uL Normal 0.10 - 1.00 [facility] Comment on above: Performed By: #### C BCDF ####[facility] [id number] [place] [address] Monocytes/100 WBC (Bld) 10.2 % Normal 2.0 - 10.0 [facility] Comment on above: Performed By: #### C BCDF ####[facility] [id number] [place] [address] Neutrophils (Bld) [#/Vol] 2.11 10*3/uL Normal 1.20 - 7.70 [facility] Comment on above: Performed By: #### C BCDF ####[facility] [id number] [place] [address] Neutrophils/100 WBC (Bld) 59.6 % Normal 40.0 - 80.0 [facility] Comment on above: Performed By: #### C BCDF ####[facility] [id number] [place] [address] Platelets (Bld) [#/Vol] 136 10*3/uL Low 150 - 450 [facility] Comment on above: Performed By: #### C BCDF ####[facility] [id number] [place] [address] RBC 4.44 x10E12/L Low 4.50 - 5.90 [facility] Comment on above: Performed By: #### C BCDF ####[facility] [id number] [place] [address] WBC (Bld) [#/Vol] 3.5 10*3/uL Low 4.4 - 11.3 [facility] Comment on above: Performed By: #### C BCDF ####[facility] [id number] [place] [address] CHEST 1 VIEWon 04-12-2021 CHEST 1 VIEW Patient Name: HOSEA ALVAREZ STUDY: CHEST 1 VIEW; 04/12/2021 6:52 pm INDICATION: Chest Pain. COMPARISON: April 04, 2021 CT angiogram. April 08, 2021 chest radiograph ACCESSION NUMBER(S): [id number] ORDERING CLINICIAN: DANA SOL FINDINGS: AP portable [...] Electronically signed by: SANTA WAY MD Normal [facility] Complete Blood Count + Diffe rentialon 04-12-2021 Basophils/100 WBC (Bld) 0.6 % 0.0 - 2.0 [facility] [employer] Work Phone: Erythrocyte distribution width (RBC) [Ratio] [...] % 0.0 - 0.9 [facility] [employer] Work Phone: Comment on above: Immature Granulocyte [...] 98 - 107 [facility] [employer] Work Phone: CO2 [Moles/Vol] 27 mmol/L 21 [...] 14 mg/dL 6 - 23 [facility]José iMguel mathews [employer] Work Phone: MAGNESIUMon 04-12-2021 Magnesium [Mass/Vol] 1.90 mg/dL Normal 1.60 - 2.40 [facility] Comment on above: Performed By: #### M ####[facility] [id number] [place] [address] Magnesium, Serumon Magnesium [Mass/Vol] 1.90 mg/dL See Below [facility] Miguel mathews [employer] Work Phone: Comment on above: Reference Range: 1.6 0 - 2.40 No Panel Informationon 04-12 [email or web address]?RetrieveTestByDateTim e?[id number]=[id number]&Da te=12-04-2021&Time=21%3a 45%3a44%3a00&TestType=EC G&Site=2&OutputType=PDF& Ext=PDF [facility] Work Phone: [phone] Normal sinus rhythm [facility] stroente [facility]log[facility] Work Phone: [phone] Normal [facility] Work Phone: [phone] 1 [facility] Work Phone: [phone] 1 [facility] Work Phone: [phone] 1 [facility] Work Phone: [phone] 1 [facility] Work Phone: [phone] 1 [facility] Work Phone: [phone] 11 1 [facility] Work Phone: [phone] 13 1 [facility] Work Phone: [phone] 12 1 [facility] Work Phone: [phone] 42 1 [facility] Work Phone: [phone] 1 [facility] Work Phone: [phone] 1 [facility] Work Phone: [phone] 1 [facility] Work Phone: [phone] 1 [facility] Work Phone: [phone] 61 1 [facility] Work Phone: [phone] [email or web address]?RetrieveTestByDateTim e?[id number]=[id number]&Da te=12-04-2021&Time=19%3a 45%3a57%3a00&TestType=EC G&Site=2&OutputType=PDF& Ext=PDF [facility] Work Phone: [phone] Sinus bradycardia [facility]-Tyson roente rology-[facility] Work Phone: [phone] Borderline Abnormal [facility]Ga stroente rology-[facility] Work Phone: [phone] 1 [facility] Work Phone: [phone] 1 [facility] Work Phone: [phone] 1 [facility] Work Phone: [phone] 1 [facility] Work Phone: [phone] 1 [facility] Work Phone: [phone] 1 [facility] Work Phone: [phone] 1 [facility] Work Phone: [phone] -3 1 [facility] Work Phone: [phone] 31 1 [facility] Work Phone: [phone] 1 [facility] Work Phone: [phone] 1 [facility] Work Phone: [phone] 1 [facility] Work Phone: [phone] 1 [facility] Work Phone: [phone] 54 1 [facility] Work Phone: [phone] 34 pg/mL 0 - 99 [facility] 1800 Work Phone: [phone] Comment on above: . <100 pg/mL - Heart failure stfmywoc496-387 pg/mL - Intermediate probability of acute heart. failure exacerbation. Correlate with clinical. context and patient history. >=300 pg/mL - Heart Failure likely. Correlate with clinical. context and patient history.BNP testing is performed using different testing methodology at [facility] than at other [facility] hospitals. Direct result comparisons should only be made within the same method. >60 >60 [facility] Miguel mathews 1800 Work Phone: [phone] Comment on above: CALCULATIONS OF NIKOLE MATED GFR ARE PERFORMED USING THE MDRD STUDY EQUATION FOR THE IDMS-TRACEABLE CREATININE METHODS. CLIN CHEM 2007;53:766-72 [email or web address] ll?RetrieveTestByDateTim e?AeikqxzYV=[id number]&Da te=12-04-2021&Time=17%3a 54%3a59%3a00&TestType=EC G&Site=2&OutputType=PDF& Ext=PDF [facility] Work Phone: [phone] Normal sinus rhythm [facility]Ga stroente [facility]log[facility] 6 [facility] Work Phone: [phone] Normal [facility] Work Phone: [phone] 1 [facility] Work Phone: [phone] 1 [facility] Work Phone: [phone] 1 [facility] 6 [facility] Work Phone: [phone] 1 [facility] Work Phone: [phone] 1 [facility] Work Phone: [phone] 11 1 [facility] Work Phone: [phone] 15 1 [facility] Work Phone: [phone] -8 1 [facility] Work Phone: [phone] 38 1 [facility] 6 [facility] Work Phone: [phone] 1 [facility] 6 [facility] Work Phone: [phone] 1 [facility] Work Phone: [phone] 1 [facility] Work Phone: [phone] 1 [facility] Work Phone: [phone] 1 [facility] Work Phone: [phone] Office Visit ([facility]ascular [facility])on 04-12-2021 Follow-up visit Diagnoses/Problems Assessed Renal artery stenosis (440.1) (I70.1) Ascending aortic aneurysm (441.2) (I71.2) Orders Renal artery stenosis Basic Metabolic Panel; Status:Active; Requested for:[id number]; Complete Blood Count + Differential; Status:Active; Requested for:[id number]; PT/INR; Status:Active; Requested for:[id number]; Patient Discussion/Summary Impression: tobacco smoking. Patient discussion: [...] evaluation. He has been receiving care at [facility] in [place] and recently moved back to [place]. He states Dr. Juan Franz has been monitoring his ascending aortic aneurysm as well as his left renal artery stenosis and that both have been stable as of last July. He was evaluated at [facility] ED last week with complaints of right-sided [...] Vital Signs Recorded: 12Apr2021 11:26AM Heart Rate90 Jsagvrak324, LUE, Sitting Jzjzkwdzv60, LUE, Sitting Blood Pressure Cuff SizeLarge Height5 ft 6 in Ucyxim955 lb BMI Nlyyalbjrn77.51 kg/m2 BSA Calculated1.95 Tobacco Useb) No Fall Screeninga) No falls within the last year O2 Fdibzhnike06, RA Systolic Mbmyoqs213, RUE, Sitting Diastolic Tpymphc69, RUE, Sitting Physical Exam Constitutional: Well developed [...] this a few days ago at main jessup 4 days ago which is confirmed by [...] that gradually came on approx 30 min well logging captain. pt given 324 asa and 1 nitro well logging captain. (1). Triage Information: Mo (more content not included)... Normal [facility] Radiologyon 04-12-2021 XR Chest Single view Normal [facility]-José Miguel mathews 1800 Work Phone: TROPONIN Ion 04-12-2021 Troponin I.cardiac [Mass/Vol] ng/mL Normal 0.00 - 0.03 [facility] Comment on above: Result Comment: [...] is performed using different testing methodology at [facility] than at other [facility]. Direct result comparisons should only be made within the same method. Performed By: #### T ROP2 ####[facility] [id number] [place] [address] Triage - EDon 04-12-2021 Triage - ED Chart Review: ARRIVAL INFORMATION Mode of Arrival: ambulance Agency Name: [facility] CHIEF COMPLAINT HOSEA ALVAREZ is a Male patient with a chief complaint of chest pain. Other Complaints: pt brought in via ems with c/o right sided chest and pain back that gradually came on approx 30 min well logging captain. pt given 324 asa and 1 nitro well logging captain. Triage Date/Time: 12-Apr-2021 17:52 WILMAN: 2 [...] BMI (kg/m2): 30.260 Calculated BSA (m2) 1.99 [place] Coma Scale: Best Eye Response: (E4) spontaneous [...] 12-Apr-2021 18:27 by Cierra Francisco (BROOKLYNN) Normal [facility] Troponin I, Serumon 04-12-20 21 Troponin [...] is performed using different testing methodology at [facility] than at other [facility]. Direct result comparisons should only be [...] is performed using different testing methodology at [facility] than at other [facility]. Direct result comparisons should only be made [...] until 8 hours following last biotin administration. [facility] Albumin [Mass/Vol] Albumin 4.3 GM/DL (3.5-5.0 GM/DL) 3.5 - 5.0 GM/DL [facility] Albumin/Globulin [Mass ratio] Albumin Globulin Ratio 1.6 RATIO (1.5-3.0 RATIO) 1.5 - 3.0 RATIO [facility] ALP (Bld) [Catalytic activity/Vol] Alk Phosphatase 62 [...] under 18 years of age. Performed at [facility] [address] [place] [address] [facility] Globulin (S) [Mass/Vol] Globulin 2.7 G/DL (1.9-3.7 [...] RATIO (8-21 RATIO) 8 - 21 RATIO [employer] Laboratory - Hematology and Cell countson 04-11-2021 Basophils (Bld) [#/Vol] Abs Baso 0.02 K/UL (0.00-0.22 K/UL) 0.00 - 0.22 K/UL [facility] Basophils/100 WBC (Bld) Basophil 0.40 % (0-1 %) 0 - 1 % [facility] Differential cell count method Nom (Bld) Diff Type AUTO DIFF (Reference Range: not available) [facility] Eosinophils (Bld) [#/Vol] Abs Eos 0.06 K/UL (0-0.45 K/UL) 0 - 0.45 K/UL [facility] Eosinophils/100 WBC (Bld) Eosinophil 1.30 % (0-3 %) 0 - 3 % [facility] Erythrocyte distribution width (RBC) [Entitic vol] RDW SD 40.7 FL (37.0-54.0 FL) 37.0 - 54.0 FL [facility] Erythrocyte distribution width (RBC) [Ratio] RDW CV 13.1 % (11.7-15.0 %) 11.7 - 15.0 % [facility] Hematocrit (Bld) [Volume fraction] HCT 40.6 % L (41-50 %) Low 41 - 50 % [facility] Hemoglobin (Bld) [Mass/Vol] HGB 13.1 GM/DL L (13.5-16.5 GM/DL) Low 13.5 - 16.5 GM/DL [facility] Immature granulocytes (Bld) [#/Vol] Abs Imm Neut 0.01 K/UL (0.0-0.1 K/UL) 0.0 - 0.1 K/UL [facility] Lymphocytes (Bld) [#/Vol] Abs Lymph 0.92 K/UL [...] FL (80-100 FL) 80 - 100 FL [facility] Monocytes (Bld) [#/Vol] Abs Brown 0.42 K/UL (0-0.8 K/UL) 0 - 0.8 K/UL [facility] Monocytes/100 WBC (Bld) Monocyte 9.40 % H (0-8 %) High 0 - 8 % [facility] Neutrophils (Bld) [#/Vol] Abs.Neut.Calculated 3.05 K/UL (Reference Range: not available) Performed at [facility] [address] [place] [address] [facility] Neutrophils (Bld) [#/Vol] Abs Neut 3.05 K/UL (1.8-7.7 K/UL) 1.8 - 7.7 K/UL [facility] Neutrophils.immature/ 100 WBC (Bld) Immature Neut % 0.20 % (0.0-1.0 %) 0.0 - 1.0 % [facility] Nucleated RBC/100 WBC (Bld) [Ratio] NRBCs 0 /100 WBC (0 /100 WBC) [facility] Platelet mean volume (Bld) [Entitic vol] MPV 11.2 CU (7.0-12.6 CU) 7.0 - 12.6 CU [facility] Platelets (Bld) [#/Vol] PLT 150 K/UL (150-450 K/UL) 150 - 450 K/UL [facility] RBC (Bld) [#/Vol] RBC 4.70 M/UL (4.5-5 .5 M/UL) 4.5 - 5.5 M/UL [facility] Segmented neutrophils/100 WBC (Bld) Granulocyte 68.20 % (50-70 %) 50 - 70 % [facility] WBC (Bld) [#/Vol] WBC 4.5 K/UL (4.5-11 .0 K/UL) 4.5 - 11.0 K/UL [facility] Laboratory - Microbiology an d Antimicrobial susceptibilityon 04-11-2021 FLUAV RNA TATI+probe Ql (Nph) FLU A by PCR NEGATIVE (Reference Range: not available) [facility] FLUBV RNA TATI+probe Ql (Nph) FLU B by PCR NEGATIVE (Reference Range: not available) [facility] SARS-CoV-2 (COVID-19) RNA TATI+probe Ql (Unsp spec) SARS-CoV-2 by PCR NEGATIVE (NEG ) [facility] No Panel Informationon 04-11 HS Troponin T Delta 0 (0-4 ) Performed at [address] [address] 0 - 4 [facility] XR Abdomen KUB (Reference Range: not available) *FINAL Date of Service: 04/11/2021 17:29 Adm #: [id number] Reading Dr:SOHAIL MARINA Signoff : SOHAIL MARINA [...] osseous structures are unremarkable. Impression: Normal KUB. [id number] This report has been produced using speech recognition. Original Interpreting Physician: SOHAIL MARINA M.D. Original Transcribed by/Date: [facility] Apr 11 2021 5:44P Original Electronically Signed by/Date: SOHAIL MARINA M.D. Apr 11 2021 5:44P Addendum Interpreting Physician: Addendum Transcribed by/Date: NO ADDENDUM Addendum Electronically Signed by/Date: [facility] HS Troponin T Delta No previous result Performed at [address] [address] (0-4 ) 0 - 4 [facility] No Panel Informationon 04-10 XR Chest Portable (1view) (Reference Range: not available) *FINAL Date of Service: 04/10/2021 14:30 Adm #: [id number] Reading Dr:ZIA GARCIA Signoff Dr: ZIA GARCIA [...] abnormalities. No change since the prior exam.. [id number] This report has been produced using speech recognition. Original Interpreting Physician: ZIA GARCIA MD Original Transcribed by/Date: [facility] Apr 10 2021 2:52P Original Electronically Signed by/Date: ZIA GARCIA MD Apr 10 2021 2:52P Addendum Interpreting Physician: Addendum Transcribed by/Date: NO ADDENDUM Addendum Electronically Signed by/Date: [facility] Complete Blood Count + Diffe rentialon 04-08-2021 Basophils/100 WBC (Bld) 0.2 % 0.0 - 2.0 [facility] Work Phone: Erythrocyte distribution width (RBC) [Ratio] 12.9 % See Below [facility] Work Phone: Comment on above: Reference Range: 11. 5 - 14.5 Hematocrit (Bld) [Volume fraction] 37.3 % below low threshold See Below [facility] Work Phone: [phone] Comment on above: Reference Range: 41. [...] 10.0 [facility] 1800 Work Phone: [phone] Neutrophils/100 WBC (Bld) 69.5 % See [...] U/L 33 - 120 [facility] [employer] Work Phone: ALT With P-5'-P [Catalytic activity/Vol] 11 U/L 10 - 52 [facility] [employer] Work Phone: Comment on above: Patients treated wit h Sulfasalazine may generate falsely decreased results for ALT. Anion gap [Moles/Vol] 13 mmol/L 10 - 20 [facility] [employer] Work Phone: AST With P-5'-P [Catalytic activity/Vol] 13 U/L 9 - 39 [facility] [employer] Work Phone: Bilirubin [Mass/Vol] 0.4 mg/dL 0.0 - 1.2 [facility] [employer] Work Phone: Calcium [Mass/Vol] 8.7 mg/dL 8.6 - 10.6 [facility] [employer] Work Phone: Chloride [Moles/Vol] 101 mmol/L 98 - 107 [facility] [employer] Work Phone: [phone] CO2 [Moles/Vol] 27 mmol/L 21 - 32 [facility] [employer] Work Phone: Creatinine [Mass/Vol] 1.00 mg/dL See Below [facility] [employer] Work Phone: Comment on above: Reference Range: 0.5 0 - 1.30 Glucose [Mass/Vol] 117 mg/dL above high threshold 74 - 99 [facility] [employer] Work Phone: Potassium [Moles/Vol] 3.9 mmol/L 3.5 [...] Panel Informationon 04-08 [email or web address] ll?RetrieveTestByDateTim e?YjfpcvnZT=[id number]&Da te=08-04-2021&Time=04%3a 07%3a05%3a00&TestType=EC G&Site=1&OutputType=PDF& Ext=PDF [facility] 1800 Work Phone: [phone] Please see ED Provid er Note for formal interpretation [facility] Work Phone: [phone] Normal [facility] 1800 Work Phone: [phone] 1 [facility] 1800 Work Phone: [phone] 1 [facility] 1800 Work Phone: [phone] 1 [facility] 1800 Work Phone: [phone] 1 [facility] 1800 Work Phone: [phone] 1 [facility] 1800 Work Phone: [phone] 12 1 [facility] 1800 Work Phone: [phone] 26 1 [facility] 1800 Work Phone: [phone] -30 1 [facility] 1800 [...] is performed using different testing methodology at [facility] than at other [facility] hospitals. Direct result comparisons should [...] GRAN 0.3 % Normal 0.0 - 0.9 [facility] Comment on above: Result Comment: Kath ture Granulocyte Count (IG) includes promyelocytes, myelocytes and metamyelocytes but does not include bands. Percent differential counts (%) should be interpreted in the context of the absolute cell counts (cells/L). Performed By: #### C BCDF #### [address] [id number] Basophils (Bld) [#/Vol] 0.01 10*3/uL Normal 0.00 - 0.10 [facility] Comment on above: Performed By: #### C BCDF #### [address] [id number] Basophils/100 WBC (Bld) 0.3 % Normal 0.0 - 2.0 [facility] Comment on above: Performed By: #### C BCDF #### [address] [id number] Eosinophils (Bld) [#/Vol] 0.04 10*3/uL Normal 0.00 - 0.70 [facility] Comment on above: Performed By: #### C BCDF #### [address] [id number] Eosinophils/100 WBC (Bld) 1.4 % Normal 0.0 - 6.0 [facility] Comment on above: Performed By: #### C BCDF #### [address] [id number] Erythrocyte distribution width (RBC) [Ratio] 12.8 % Normal 11.5 - 14.5 [facility] Comment on above: Performed By: #### C BCDF #### [address] [id number] Hematocrit (Bld) [Volume fraction] 40.5 % Low 41.0 - 52.0 [facility] Comment on above: Performed By: #### C BCDF #### [address] [id number] Hemoglobin (Bld) [Mass/Vol] 13.3 g/dL Low 13.5 - 17.5 [facility] Comment on above: Performed By: #### C BCDF #### [address] [id number] Lymphocytes (Bld) [#/Vol] 0.78 10*3/uL Low 1.20 - 4.80 [facility] Comment on above: Performed By: #### C BCDF #### [address] [id number] Lymphocytes/100 WBC (Bld) 27.2 % Normal 13.0 - 44.0 [facility] Comment on above: Performed By: #### C BCDF #### [address] [id number] MCHC (RBC) [Mass/Vol] 32.8 g/dL Normal 32.0 - 36.0 [facility] Comment on above: Performed By: #### C BCDF #### [address] [id number] MCV (RBC) [Entitic vol] 86 fL Normal 80 - 100 [facility] Comment on above: Performed By: #### C BCDF #### [address] [id number] Monocytes (Bld) [#/Vol] 0.29 10*3/uL Normal 0.10 - 1.00 [facility] Comment on above: Performed By: #### C BCDF #### [address] [id number] Monocytes/100 WBC (Bld) 10.1 % Normal 2.0 - 10.0 [facility] Comment on above: Performed By: #### C BCDF #### [address] [id number] Neutrophils (Bld) [#/Vol] 1.74 10*3/uL Normal 1.20 - 7.70 [facility] Comment on above: Performed By: #### C BCDF #### [address] [id number] Neutrophils/100 WBC (Bld) 60.7 % Normal 40.0 - 80.0 [facility] Comment on above: Performed By: #### C BCDF #### [address] [id number] Platelets (Bld) [#/Vol] 147 10*3/uL Low 150 - 450 [facility] Comment on above: Performed By: #### C BCDF #### [address] [id number] RBC 4.72 x10E12/L Normal 4.50 - 5.90 [facility] Comment on above: Performed By: #### C BCDF #### [address] [id number] WBC (Bld) [#/Vol] 2.9 10*3/uL Low 4.4 - 11.3 [facility] Comment on above: Performed By: #### C BCDF #### [address] [id number] COMPREHENSIVE PANELon 2020 Albumin [Mass/Vol] 4.2 g/dL Normal 3.4 - 5.0 [facility] Comment on above: Performed By: #### C MP #### [address] [id number] ALP [Catalytic activity/Vol] 61 U/L Normal 33 - 120 [facility] Comment on above: Performed By: #### C MP #### [address] [id number] ALT [Catalytic activity/Vol] 16 U/L Normal 10 - 52 [facility] Comment on above: Result Comment: Yanni ents treated with Sulfasalazine may generate falsely decreased results for ALT. Performed By: #### C MP #### [address] [id number] Anion gap [Moles/Vol] 13 mmol/L Normal 10 - 20 [facility] Comment on above: Performed By: #### C MP #### [address] [id number] AST [Catalytic activity/Vol] 18 U/L Normal 9 - 39 [facility] Comment on above: Performed By: #### C MP #### [address] [id number] Bilirubin [Mass/Vol] 0.6 mg/dL Normal 0.0 - 1.2 [facility] Comment on above: Performed By: #### C MP #### [address] [id number] Calcium [Mass/Vol] 9.1 mg/dL Normal 8.6 - 10.3 [facility] Comment on above: Performed By: #### C MP #### [address] [id number] Chloride [Moles/Vol] 101 mmol/L Normal 98 - 107 [facility] Comment on above: Performed By: #### C MP #### [address] [id number] Creatinine [Mass/Vol] 0.97 mg/dL Normal 0.50 - 1.30 [facility] Comment on above: Performed By: #### C MP #### [address] [id number] GFR- AM. >60 Normal >60 [facility] Comment on above: Result Comment: CALC ULATIONS OF ESTIMATED GFR ARE PERFORMED USING THE MDRD STUDY EQUATION FOR THE IDMS-TRACEABLE CREATININE METHODS. CLIN CHEM 2007;53:766-72 Performed By: #### C MP #### [address] [id number] GFR-NON AM. >60 Normal >60 [facility] Comment on above: Performed By: #### C MP #### [address] [id number] Glucose [Mass/Vol] 116 mg/dL High 74 - 99 [facility] Comment on above: Performed By: #### C MP #### [address] [id number] HCO3 (Bld) [Moles/Vol] 26 mmol/L Normal 21 - 32 [facility] Comment on above: Performed By: #### C MP #### [address] [id number] Potassium [Moles/Vol] 3.6 mmol/L Normal 3.5 - 5.3 [facility] Comment on above: Performed By: #### C MP #### [address] [id number] Protein [Mass/Vol] 7.2 g/dL Normal 6.4 - 8.2 [facility] Comment on above: Performed By: #### C MP #### [address] [id number] Sodium [Moles/Vol] 136 mmol/L Normal 136 - 145 [facility] Comment on above: Performed By: #### C MP #### [address] [id number] Urea nitrogen [Mass/Vol] 10 mg/dL Normal 6 - 23 [facility] Comment on above: Performed By: #### C MP #### [address] [id number] CTA CHEST, ABDOMEN, PELVISon 04-04-2021 CTA CHEST, ABDOMEN, PELVIS Patient Name: HOSEA ALVAREZ STUDY: CTA CHEST, ABDOMEN ; ; 04/04/2021 11:46 am INDICATION: Abdominal pain, history of aortic aneurysm. COMPARISON: None. ACCESSION NUMBER(S): [id number] ORDERING CLINICIAN: LIAM SO TECHNIQUE: CT angiogram [...] Electronically signed by: HOUSTON JONES MD Normal [facility] Complete Blood Count + Diffe rentialon 04-04-2021 [...] 5.0 [facility] Work Phone: [phone] ALP [Catalytic activity/Vol] 61 U/L 33 - 120 [facility] [employer] Work Phone: [phone] ALT With P-5'-P [Catalytic activity/Vol] 16 U/L 10 - 52 [facility] [employer] Work Phone: [phone] Comment on above: Patients treated wit h Sulfasalazine may generate falsely decreased results for ALT. Anion gap [Moles/Vol] 13 mmol/L 10 - 20 [facility] [employer] Work Phone: [phone] AST With P-5'-P [Catalytic activity/Vol] 18 U/L 9 - 39 [facility] [employer] Work Phone: [phone] Bilirubin [Mass/Vol] 0.6 mg/dL 0.0 - 1.2 [facility] [employer] Work Phone: [phone] Calcium [Mass/Vol] 9.1 mg/dL 8.6 - 10.3 [facility] [employer] Work Phone: [phone] Chloride [Moles/Vol] 101 mmol/L 98 - 107 [facility] [employer] Work Phone: [phone] CO2 [Moles/Vol] 26 mmol/L 21 - 32 [facility] [employer] Work Phone: [phone] Creatinine [Mass/Vol] 0.97 mg/dL See Below [facility] [employer] Work Phone: [phone] Comment on above: Reference Range: 0.5 0 - 1.30 Glucose [Mass/Vol] 116 mg/dL above high threshold 74 - 99 [facility] [employer] Work Phone: [phone] Potassium [Moles/Vol] 3.6 mmol/L 3.5 - 5.3 [facility] [employer] Work Phone: [phone] Protein [Mass/Vol] 7.2 g/dL 6.4 - [...] Phone: >60 >60 [facility] [employer] Work Phone: Comment on above: CALCULATIONS OF NIKOLE MATED GFR ARE PERFORMED USING THE MDRD STUDY EQUATION FOR THE IDMS-TRACEABLE CREATININE METHODS. CLIN CHEM 2007;53:766-72 PT/INRon 04-04-2021 PT Coag (PPP) [Time] 12.1 s Normal 10.1 - 13.3 [facility] Comment on above: Performed By: #### P TINR #### [address] [id number] PT, INR 1.0 Normal 0.9 - 1.1 [facility] Comment on above: Performed By: #### P TINR #### [address] [id number] Provider Note - ED v2on 03-23 Provider Note - ED v2 Provider Note - ED v2: Chart Review: ED NOTES ED NOTES: Male patient comes in the emergency department today with complaints of chronic issue of right-sided numbness. He states he seen doctors from [place] to [place] to [place] regarding this particular issue. He states at [...] Name: kit (more content not included)... Normal [facility] Risk Screen - Adult Emergenc yon 04-04-2021 [...] Communicatenone Learning Preferencesaudio Cultural Considerationsnone Developmental Considerationsnone Presybeterian Considerationsnone Learning Assessment (Other Learner): Learning Assessment (Other Learner): Other learner availableno Pressure Injury/TB/Substance: Pressure Injury: Pressure Injury Present on Admissionno Do you have a coughno Smoking Statusformer smoker (1) Admission Risk Screen: Significant IndicatorsComplete CAGE: CAGE: Is this an injured patient at a Trauma Center ([facility]): no Electronic Signatures: Jaylin Willett ([place]) (Signed 04-Apr-2021 11:56) Authored: Preferred Language, Advanced Directives, Family Violence Adult, Learning Assessment (Patient), Learning Assessment (Other Learner), Pressure Injury/TB/Substance, Pressure Injury, CAGE Last Updated: 04-Apr-2021 11:56 by Jaylin Willett ([place]) References: 1. Data Referenced From Risk Screen - Adult Emergency 03-Apr-2021 19:17 Normal [facility] TROPONIN Ion 04-04-2021 Troponin I.cardiac [Mass/Vol] ng/mL Normal 0.00 - 0.03 [facility] Comment on above: Result Comment: LESS [...] is performed using different testing methodology at [facility] than at other [facility] [facility]. Direct result comparisons should only be made within the same method. 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 MDRO: History of MDRO: no [...] BMI (kg/m2): 30.260 Calculated BSA (m2) 1.99 [place] Coma Scale: Best Eye Response: (E4) spontaneous [...] 04-Apr-2021 09:42 by Lily Cordero (COOR) Normal [facility] URINALYSIS WITH CULTURE IF I NDICATEDon 04-04-2021 Appearance (U) CLEAR Normal CLEAR [facility] Comment on above: Performed By: #### U ARFX #### [address] [id number] Bilirubin Ql (U) Negative Normal NEGATIVE [facility] Comment on above: Performed By: #### U ARFX #### [address] [id number] Color (U) STRAW Normal STRAW,YELLOW [facility] Comment on above: Performed By: #### U ARFX #### [address] [id number] Glucose Ql (U) Negative Normal NEGATIVE [facility] Comment on above: Performed By: #### U ARFX #### [address] [id number] Hemoglobin Ql (U) Negative Normal NEGATIVE [facility] Comment on above: Performed By: #### U ARFX #### [address] [id number] Ketones Ql (U) Negative Normal NEGATIVE [facility] Comment on above: Performed By: #### U ARFX #### [address] [id number] Leukocyte esterase Test strip Ql (U) Negative Normal NEGATIVE [facility] Comment on above: Performed By: #### U ARFX #### [address] [id number] Nitrite Ql (U) Negative Normal NEGATIVE [facility] Comment on above: Performed By: #### U ARFX #### [address] [id number] pH (U) 6.0 [pH] Normal 5.0 - 8.0 [facility] Comment on above: Performed By: #### U ARFX #### [address] [id number] Protein Ql (U) Negative Normal NEGATIVE [facility] Comment on above: Performed By: #### U ARFX #### [address] [id number] Specific gravity (U) [Rel density] 1.003 Low 1.005 - 1.035 [facility] Comment on above: Performed By: #### U ARFX #### [address] [id number] Urobilinogen (U) [Mass/Vol] mg/dL Normal 0.0 - 1.9 [facility] Comment on above: Performed By: #### U ARFX #### [facility] [address] [place], [place] [id number] Color (U) STRAW See Below [facility] Work Phone: Comment on above: Reference Range: STR AW,YELLOW Glucose Ql (U) Negative NEGATIVE [facility] Work Phone: Ketones Ql (U) Negative NEGATIVE [facility] Work Phone: Leukocyte esterase Test strip Ql (U) Negative NEGATIVE [facility] Work Phone: [phone] pH (U) 6.0 [pH] 5.0 - 8.0 [facility] Work Phone: [phone] Protein (U) [Mass/Vol] Negative NEGATIVE [facility] Work Phone: [phone] RBC (U) [#/Vol] Negative NEGATIVE [facility] [...] GRAN 0.0 % Normal 0.0 - 0.9 [facility] Comment on above: Result Comment: Kath ture Granulocyte Count (IG) includes promyelocytes, myelocytes and metamyelocytes but does not include bands. Percent differential counts (%) should be interpreted in the context of the absolute cell counts (cells/L). Performed By: #### C BCDF #### [address] [id number] Basophils (Bld) [#/Vol] 0.02 10*3/uL Normal 0.00 - 0.10 [facility] Comment on above: Performed By: #### C BCDF #### [address] [id number] Basophils/100 WBC (Bld) 0.5 % Normal 0.0 - 2.0 [facility] Comment on above: Performed By: #### C BCDF #### [address] [id number] Eosinophils (Bld) [#/Vol] 0.05 10*3/uL Normal 0.00 - 0.70 [facility] Comment on above: Performed By: #### C BCDF #### [address] [id number] Eosinophils/100 WBC (Bld) 1.2 % Normal 0.0 - 6.0 [facility] Comment on above: Performed By: #### C BCDF #### [address] [id number] Erythrocyte distribution width (RBC) [Ratio] 12.8 % Normal 11.5 - 14.5 [facility] Comment on above: Performed By: #### C BCDF #### [address] [id number] Hematocrit (Bld) [Volume fraction] 37.0 % Low 41.0 - 52.0 [facility] Comment on above: Performed By: #### C BCDF #### [address] [id number] Hemoglobin (Bld) [Mass/Vol] 12.1 g/dL Low 13.5 - 17.5 [facility] Comment on above: Performed By: #### C BCDF #### [address] [id number] Lymphocytes (Bld) [#/Vol] 0.86 10*3/uL Low 1.20 - 4.80 [facility] Comment on above: Performed By: #### C BCDF #### [address] [id number] Lymphocytes/100 WBC (Bld) 21.1 % Normal 13.0 - 44.0 [facility] Comment on above: Performed By: #### C BCDF #### [address] [id number] MCHC (RBC) [Mass/Vol] 32.7 g/dL Normal 32.0 - 36.0 [facility] Comment on above: Performed By: #### C BCDF #### [address] [id number] MCV (RBC) [Entitic vol] 86 fL Normal 80 - 100 [facility] Comment on above: Performed By: #### C BCDF #### [address] [id number] Monocytes (Bld) [#/Vol] 0.39 10*3/uL Normal 0.10 - 1.00 [facility] Comment on above: Performed By: #### C BCDF #### [address] [id number] Monocytes/100 WBC (Bld) 9.6 % Normal 2.0 - 10.0 [facility] Comment on above: Performed By: #### C BCDF #### [address] [id number] Neutrophils (Bld) [#/Vol] 2.75 10*3/uL Normal 1.20 - 7.70 [facility] Comment on above: Performed By: #### C BCDF #### [address] [id number] Neutrophils/100 WBC (Bld) 67.6 % Normal 40.0 - 80.0 [facility] Comment on above: Performed By: #### C BCDF #### [address] [id number] Platelets (Bld) [#/Vol] 144 10*3/uL Low 150 - 450 [facility] Comment on above: Performed By: #### C BCDF #### [address] [id number] RBC 4.31 x10E12/L Low 4.50 - 5.90 [facility] Comment on above: Performed By: #### C BCDF #### [address] [id number] WBC (Bld) [#/Vol] 4.1 10*3/uL Low 4.4 - 11.3 [facility] Comment on above: Performed By: #### C BCDF #### [address] [id number] CHEST 1 VIEWon 04-03-2021 CHEST 1 VIEW Patient Name: HOSEA ALVAREZ STUDY: CHEST 1 VIEW; 04/03/2021 8:04 pm INDICATION: Chest Pain. COMPARISON: Chest x-ray 04/01/2021 ACCESSION NUMBER(S): [id number] ORDERING CLINICIAN: IRVING WILLS FINDINGS: Multiple overlying leads are present. CARDIOMEDIASTINAL SILHOUETTE: Cardiomediastinal silhouette is normal in size and configuration. LUNGS: No consolidation, pleural effusion or pneumothorax. ABDOMEN: No remarkable upper abdominal findings. BONES: No acute osseous abnormality. IMPRESSION: No acute cardiopulmonary process. Electronically signed by: BHARGAV MOJICA MD Normal [facility] COMPREHENSIVE PANELon 2020 Albumin [Mass/Vol] 3.8 g/dL Normal 3.4 - 5.0 [facility] Comment on above: Performed By: #### C MP #### [address] [id number] ALP [Catalytic activity/Vol] 56 U/L Normal 33 - 120 [facility] Comment on above: Performed By: #### C MP #### [address] [id number] ALT [Catalytic activity/Vol] 14 U/L Normal 10 - 52 [facility] Comment on above: Result Comment: Yanni ents treated with Sulfasalazine may generate falsely decreased results for ALT. Performed By: #### C MP #### [address] [id number] Anion gap [Moles/Vol] 11 mmol/L Normal 10 - 20 [facility] Comment on above: Performed By: #### C MP #### [address] [id number] AST [Catalytic activity/Vol] 17 U/L Normal 9 - 39 [facility] Comment on above: Performed By: #### C MP #### [address] [id number] Bilirubin [Mass/Vol] 0.4 mg/dL Normal 0.0 - 1.2 [facility] Comment on above: Performed By: #### C MP #### [address] [id number] Calcium [Mass/Vol] 8.7 mg/dL Normal 8.6 - 10.3 [facility] Comment on above: Performed By: #### C MP #### [address] [id number] Chloride [Moles/Vol] 105 mmol/L Normal 98 - 107 [facility] Comment on above: Performed By: #### C MP #### [address] [id number] Creatinine [Mass/Vol] 1.06 mg/dL Normal 0.50 - 1.30 [facility] Comment on above: Performed By: #### C MP #### [address] [id number] GFR- AM. >60 Normal >60 [facility] Comment on above: Result Comment: CALC ULATIONS OF ESTIMATED GFR ARE PERFORMED USING THE MDRD STUDY EQUATION FOR THE IDMS-TRACEABLE CREATININE METHODS. CLIN CHEM 2007;53:766-72 Performed By: #### C MP #### [address] [id number] GFR-NON AM. >60 Normal >60 [facility] Comment on above: Performed By: #### C MP #### [address] [id number] Glucose [Mass/Vol] 86 mg/dL Normal 74 - 99 [facility] Comment on above: Performed By: #### C MP #### [address] [id number] HCO3 (Bld) [Moles/Vol] 26 mmol/L Normal 21 - 32 [facility] Comment on above: Performed By: #### C MP #### [address] [id number] Potassium [Moles/Vol] 4.0 mmol/L Normal 3.5 - 5.3 [facility] Comment on above: Performed By: #### C MP #### [address] [id number] Protein [Mass/Vol] 6.5 g/dL Normal 6.4 - 8.2 [facility] Comment on above: Performed By: #### C MP #### [address] [id number] Sodium [Moles/Vol] 138 mmol/L Normal 136 - 145 [facility] Comment on above: Performed By: #### C MP #### [address] [id number] Urea nitrogen [Mass/Vol] 13 mg/dL Normal 6 - 23 [facility] Comment on above: Performed By: #### C MP #### [address] [id number] Complete Blood Count + Lorena conner 04-03-2021 Basophils/100 WBC (Bld) 0.5 % 0.0 - 2.0 [facility] [employer] Work Phone: Erythrocyte distribution width (RBC) [Ratio] [...] U/L 10 - 52 [facility] [employer] Work Phone: [phone] Comment on above: Patients treated wit h Sulfasalazine may generate falsely decreased results for ALT. Anion gap [Moles/Vol] 11 mmol/L 10 - 20 [facility] [employer] Work Phone: [phone] AST With P-5'-P [Catalytic activity/Vol] 17 U/L 9 - 39 [facility] [employer] Work Phone: [phone] Bilirubin [Mass/Vol] 0.4 mg/dL 0.0 - 1.2 [facility] [employer] Work Phone: [phone] Calcium [Mass/Vol] 8.7 mg/dL 8.6 - 10.3 [facility] [employer] Work Phone: [phone] Chloride [Moles/Vol] 105 mmol/L 98 - 107 [facility] [employer] Work Phone: [phone] CO2 [Moles/Vol] 26 mmol/L 21 - 32 [facility] [employer] Work Phone: [phone] Creatinine [Mass/Vol] 1.06 mg/dL See Below [facility] [employer] Work Phone: [phone] Comment on above: Reference Range: 0.5 0 - 1.30 Glucose [Mass/Vol] 86 mg/dL 74 - 99 [facility] [employer] Work Phone: [phone] Potassium [Moles/Vol] 4.0 mmol/L 3.5 - 5.3 [facility] [employer] Work Phone: [phone] Protein [Mass/Vol] 6.5 g/dL 6.4 - 8.2 [facility] [employer] Work Phone: [phone] Sodium [Moles/Vol] 138 mmol/L 136 - 145 [facility] [employer] Work Phone: Urea nitrogen [Mass/Vol] 13 mg/dL [...] CLIN CHEM 2007;53:766-72 [email or web address]?[email or web address] e?TpevytiEU=[email or web address]&Da te=08-29-2021&Time=19%3a 11%3a58%3a00&TestType=EC G&Site=11&OutputType=PDF &Ext=PDF [facility] Work Phone: Sinus bradycardia [facility] Work Phone: Abnormal [facility] Work Phone: [phone] [facility] Work Phone: [phone] [facility] Work Phone: [phone] [facility] Work Phone: [phone] [facility] Work Phone: [phone] 1 [facility] [...] [Time] 12.1 s Normal 10.1 - 13.3 [facility] Comment on above: Performed By: #### T ROP2 #### [address] [id number] PT, INR 1.0 Normal 0.9 - 1.1 [facility] Comment on above: Performed By: #### T ROP2 #### [address] [id number] Provider Note - ED v2on 03-23 Provider [...] reports he is following between [place] and [place] because of work. Per chart review, some [...] had multi (more content not included)... Normal [facility] Radiologyon 04-03-2021 XR Chest Single view Normal [...] instruction; written material Cultural Considerationsnone Developmental Considerationsnone Presybeterian Considerationsnone Learning Assessment (Other Learner): Learning Assessment (Other Learner): Other learner availableno Pressure Injury/TB/Substance: Pressure Injury: Do you have a coughno Smoking Statusformer smoker Admission Risk Screen: Significant IndicatorsComplete CAGE: CAGE: Is this an injured patient at a Trauma Center ([facility]): no Electronic Signatures: Gracia Guaman (RN) (Signed 03-Apr-2021 19:17) Authored: Preferred Language, Advanced Directives, Family Violence Adult, Learning Assessment (Patient), Learning Assessment (Other Learner), Pressure Injury/TB/Substance, Pressure Injury, CAGE Last Updated: 03-Apr-2021 19:17 by Gracia Guaman (RN) Normal [facility] TROPONIN Ion 04-03-2021 Troponin I.cardiac [Mass/Vol] ng/mL Normal 0.00 - 0.03 [facility] Comment on above: Result Comment: LESS [...] is performed using different testing methodology at [facility] than at other [facility] hospitals. Direct result comparisons should only be made within the same method. Performed By: #### T ROP2 #### [address] [id number] Triage - EDon 04-03-2021 Triage - ED [...] 03-Apr-2021 19:16 by Gracia Guaman (BROOK[place]NN) Normal [facility] Troponin I, Serumon 04-03-20 21 Troponin I.cardiac [...] is performed using different testing methodology at [facility] than at other [facility] [place] [facility]. Direct result comparisons should only be made [...] is performed using different testing methodology at [facility] than at other [facility] [place] [facility]. Direct result comparisons should only be made within the same method. BASIC METABOLIC PANELon 03-23 Anion gap [Moles/Vol] 13 mmol/L Normal 10 - 20 [facility] Comment on above: Performed By: #### B MP #### [address] [id number] Calcium [Mass/Vol] 9.1 mg/dL Normal 8.6 - 10.3 [facility] Comment on above: Performed By: #### B MP #### [address] [id number] Chloride [Moles/Vol] 103 mmol/L Normal 98 - 107 [facility] Comment on above: Performed By: #### B MP #### [address] [id number] Creatinine [Mass/Vol] 0.92 mg/dL Normal 0.50 - 1.30 [facility] Comment on above: Performed By: #### B MP #### [address] [id number] GFR- AM. >60 Normal >60 [facility] Comment on above: Result Comment: CALC ULATIONS OF ESTIMATED GFR ARE PERFORMED USING THE MDRD STUDY EQUATION FOR THE IDMS-TRACEABLE CREATININE METHODS. CLIN CHEM 2007;53:766-72 Performed By: #### B MP #### [address] [id number] GFR-NON AM. >60 Normal >60 [facility] Comment on above: Performed By: #### B MP #### [address] [id number] Glucose [Mass/Vol] 99 mg/dL Normal 74 - 99 [facility] Comment on above: Performed By: #### B MP #### [address] [id number] HCO3 (Bld) [Moles/Vol] 25 mmol/L Normal 21 - 32 [facility] Comment on above: Performed By: #### B MP #### [address] [id number] Potassium [Moles/Vol] 3.7 mmol/L Normal 3.5 - 5.3 [facility] Comment on above: Performed By: #### B MP #### [address] [id number] Sodium [Moles/Vol] 137 mmol/L Normal 136 - 145 [facility] Comment on above: Performed By: #### B MP #### [address] [id number] Urea nitrogen [Mass/Vol] 15 mg/dL Normal 6 - 23 [facility] Comment on above: Performed By: #### B MP #### [address] [id number] CBC AND DIFFERENTIALon 04-02 % AUTOMATED IMMATURE GRAN 0.0 % Normal 0.0 - 0.9 [facility] Comment on above: Result Comment: Kath ture Granulocyte Count (IG) includes promyelocytes, myelocytes and metamyelocytes but does not include bands. Percent differential counts (%) should be interpreted in the context of the absolute cell counts (cells/L). Performed By: #### T ROP2 #### [address] [id number] Basophils (Bld) [#/Vol] 0.02 10*3/uL Normal 0.00 - 0.10 [facility] Comment on above: Performed By: #### T ROP2 #### [address] [id number] Basophils/100 WBC (Bld) 0.6 % Normal 0.0 - 2.0 [facility] Comment on above: Performed By: #### T ROP2 #### [address] [id number] Eosinophils (Bld) [#/Vol] 0.06 10*3/uL Normal 0.00 - 0.70 [facility] Comment on above: Performed By: #### T ROP2 #### [address] [id number] Eosinophils/100 WBC (Bld) 1.9 % Normal 0.0 - 6.0 [facility] Comment on above: Performed By: #### T ROP2 #### [address] [id number] Erythrocyte distribution width (RBC) [Ratio] 12.8 % Normal 11.5 - 14.5 [facility] Comment on above: Performed By: #### T ROP2 #### [address] [id number] Hematocrit (Bld) [Volume fraction] 38.2 % Low 41.0 - 52.0 [facility] Comment on above: Performed By: #### T ROP2 #### [address] [id number] Hemoglobin (Bld) [Mass/Vol] 12.8 g/dL Low 13.5 - 17.5 [facility] Comment on above: Performed By: #### T ROP2 #### [address] [id number] Lymphocytes (Bld) [#/Vol] 0.91 10*3/uL Low 1.20 - 4.80 [facility] Comment on above: Performed By: #### T ROP2 #### [address] [id number] Lymphocytes/100 WBC (Bld) 29.0 % Normal 13.0 - 44.0 [facility] Comment on above: Performed By: #### T ROP2 #### [address] [id number] MCHC (RBC) [Mass/Vol] 33.5 g/dL Normal 32.0 - 36.0 [facility] Comment on above: Performed By: #### T ROP2 #### [address] [id number] MCV (RBC) [Entitic vol] 85 fL Normal 80 - 100 [facility] Comment on above: Performed By: #### T ROP2 #### [address] [id number] Monocytes (Bld) [#/Vol] 0.33 10*3/uL Normal 0.10 - 1.00 [facility] Comment on above: Performed By: #### T ROP2 #### [address] [id number] Monocytes/100 WBC (Bld) 10.5 % Normal 2.0 - 10.0 [facility] Comment on above: Performed By: #### T ROP2 #### [address] [id number] Neutrophils (Bld) [#/Vol] 1.82 10*3/uL Normal 1.20 - 7.70 [facility] Comment on above: Performed By: #### T ROP2 #### [address] [id number] Neutrophils/100 WBC (Bld) 58.0 % Normal 40.0 - 80.0 [facility] Comment on above: Performed By: #### T ROP2 #### [address] [id number] Platelets (Bld) [#/Vol] 150 10*3/uL Normal 150 - 450 [facility] Comment on above: Performed By: #### T ROP2 #### [address] [id number] RBC 4.50 x10E12/L Normal 4.50 - 5.90 [facility] Comment on above: Performed By: #### T ROP2 #### [address] [id number] WBC (Bld) [#/Vol] 3.1 10*3/uL Low 4.4 - 11.3 [facility] Comment on above: Performed By: #### T ROP2 #### [address] [id number] CHEST 1 VIEWon 04-02-2021 CHEST 1 VIEW STUDY: Chest Radiograph; 04/01/2021 INDICATION: Upper right chest pain. COMPARISON: 03/23/2021 CXR. ACCESSION NUMBER(S): [id number] ORDERING CLINICIAN: URSULA CISNEROS MD TECHNIQUE: Frontal chest was obtained at 2244 hours. FINDINGS: CARDIOMEDIASTINAL SILHOUETTE: Cardiomediastinal silhouette is normal in size and configuration. LUNGS: Lungs are clear. ABDOMEN: No remarkable upper abdominal findings. BONES: No acute osseous changes. IMPRESSION: No acute thoracic findings. Signed by Kay Rodríguez II, MD Electronically signed by: KAY RODRÍGUEZ MD, PHD Normal [facility] Provider Note - ED v2on 03-23 Provider [...] All o (more content not included)... Normal [facility] TROPONIN Ion 04-02-2021 Troponin I.cardiac [Mass/Vol] ng/mL Normal 0.00 - 0.03 [facility] Comment on above: Result Comment: LESS [...] is performed using different testing methodology at [facility] than at other [facility] [place] [facility]. Direct result comparisons should only be made within the same method. Performed By: #### T ROP2 #### [address] [id number] Triage - EDon 04-02-2021 Triage - ED Chart Review: ARRIVAL INFORMATION Mode of Arrival: ambulance Agency Name: [facility] CHIEF COMPLAINT HOSEA ALVAREZ is a Male [...] obeys commands Best Verbal Response: (V5) oriented [place] Score: 15 Cough lasting greater than 3 [...] 01-Apr-2021 22:23 by Aneudy Oakley (RN) Normal [facility] Complete Blood Count + Diffe ubaldo 04-01-2021 Basophils/100 WBC (Bld) 0.6 % 0.0 - 2.0 [facility] [employer] Work Phone: Erythrocyte distribution width (RBC) [Ratio] 12.8 % See Below [facility] [employer] Work Phone: Comment on above: Reference Range: 11. 5 - 14.5 Hematocrit (Bld) [Volume fraction] 38.2 % below low threshold See Below [facility] [employer] Work Phone: Comment on above: Reference Range: [...] 1.82 {x10E9/L} See Below [facility] [employer] Work Phone: Comment on above: Reference Range: 1.2 0 - 7.70 Complete Blood Count + Differential 1.9 % 0.0 - 6.0 [facility] [employer] Work Phone: Complete Blood Count + Differential 0.0 % 0.0 - 0.9 [facility] [employer] Work Phone: Comment on above: Immature Granulocyte [...] 8.6 - 10.3 [facility] [employer] Work Phone: Chloride [Moles/Vol] 103 mmol/L 98 [...] CLIN CHEM 2007;53:766-72 [email or web address]?RetrieveTestByDateTim e?LzcqulbWE=[id number]&Da te=06-29-2021&Time=22%3a 30%3a28%3a00&TestType=EC G&Site=11&OutputType=PDF &Ext=PDF [facility] Work Phone: Normal sinus rhythm [facility] Work Phone: [phone] Normal [facility] Work Phone: [phone] [facility] Work Phone: [phone] [facility] Work Phone: [phone] [facility] Work Phone: [phone] [facility] Work Phone: [phone] [facility] Work Phone: [phone] [facility] Work Phone: [phone] [facility] Work Phone: [phone] [facility] Work Phone: [phone] [facility] Work Phone: [phone] [facility] Work Phone: [phone] [facility] Work Phone: [phone] [facility] Work Phone: [phone] [facility] Work Phone: [phone] [facility] [...] is performed using different testing methodology at [facility] than at other [facility]. Direct result comparisons should only be made within the same method. CBC Auto DifferentialOrdered By: Tasneem Story on 03-30-2021 Basophils (Bld) [#/Vol] 0.0 10*3/uL 0.0 - 0.2 K/uL [employer] Phone: Basophils/100 WBC (Bld) 1.0 % [employer] Phone: Eosinophils (Bld) [#/Vol] 0.0 10*3/uL 0.0 - 0.7 K/uL [employer] Phone: Eosinophils/100 WBC (Bld) 1.7 % [employer] Phone: Hematocrit (Bld) [Volume fraction] 37.2 % Low 42.0 - 52.0 % [employer] Phone: Hemoglobin.gastrointe stinal spec 1 Ql (Stl) 12.4 g/dL Low 14.0 - 18.0 g/dL [employer] Phone: Interpretation and review of laboratory results Abnormal [employer] Phone: Lymphocytes (Bld) [#/Vol] 0.6 10*3/uL Low 1.0 - 4.8 K/uL [employer] Phone: Lymphocytes/100 WBC (Bld) 17.0 % [employer] Phone: MCH (RBC) [Entitic mass] 28.6 pg 27.0 - 31.3 pg [employer] Phone: MCHC (RBC) [Mass/Vol] 33.4 % 33.0 - 37.0 % [employer] Phone: MCV (RBC) [Entitic vol] 85.6 fL 80.0 - 100.0 fL [employer] Phone: Monocytes (Bld) [#/Vol] 0.4 10*3/uL 0.2 - 0.8 K/uL [employer] Phone: Monocytes/100 WBC (Bld) 12.2 % [employer] Phone: Neutrophils Absolute 2.4 K/uL 1.4 - 6 .5 K/uL [employer] Work Phone: Neutrophils/100 WBC (Bld) 70.0 % [employer] Work Phone: Platelet distribution width (Bld) [Ratio] 13.8 % 11.5 - 14.5 % [employer] Phone: PLATELET SLIDE REVIEW Normal [facility] [employer] Work Phone: Platelets (Bld) [#/Vol] 139 10*3/uL 130 - 400 K/uL [employer] Work Phone: RBC (Bld) [#/Vol] 4.35 10*6/uL Low [employer] Work Phone: RBC (Bld) [#/Vol] Normal [facility] Work Phone: WBC (Bld) [#/Vol] 3.4 10*3/uL Low 4.8 - 10.8 K/uL [employer] Phone: [employer] Phone: CBC With Platelet and Differ entialon 03-30-2021 Basophils (Bld) [#/Vol] 0.0 10*3/uL Normal 0.0-0.2 [facility] Comment on above: Performed By: #### C BCWD #### [facility] [address] [place] [address] RBC morphology finding Nom (Bld) Normal Normal [facility] Comment on above: Performed By: #### C BCWD #### [facility] [address] [place] [address] Basophils/100 WBC (Bld) 1.0 % Normal [facility] Comment on above: Performed By: #### C BCWD #### [facility] [address] [place] [address] Eosinophils (Bld) [#/Vol] 0.0 10*3/uL Normal 0.0-0.7 [facility] Comment on above: Performed By: #### C BCWD #### [facility] [address] [place] [address] Eosinophils/100 WBC (Bld) 1.7 % Normal [facility] Comment on above: Performed By: #### C BCWD #### [facility] [address] [place] [address] Erythrocyte distribution width (RBC) [Ratio] 13.8 % Normal 11.5-14.5 [facility] Comment on above: Performed By: #### C BCWD #### [facility] [address] [place] [address] Hematocrit (Bld) [Volume fraction] 37.2 % Low 42.0-52.0 [facility] Comment on above: Performed By: #### C BCWD #### [facility] [address] [place] [address] Hemoglobin (Bld) [Mass/Vol] 12.4 g/dL Low 14.0-18.0 [facility] Comment on above: Performed By: #### C BCWD #### [facility] [address] [place] [address] Lymphocytes (Bld) [#/Vol] 0.6 10*3/uL Low 1.0-4.8 [facility] Comment on above: Performed By: #### C BCWD #### [facility] [address] [place] [address] Lymphocytes/100 WBC (Bld) 17.0 % Normal [facility] Comment on above: Performed By: #### C BCWD #### [facility] [address] [place] [address] MCH (RBC) [Entitic mass] 28.6 pg Normal 27.0-31.3 [facility] Comment on above: Performed By: #### C BCWD #### [facility] [address] [place] [address] MCHC 33.4 % Normal 33.0-37.0 [facility] Comment on above: Performed By: #### C BCWD #### [facility] [address] [place] [address] MCV (RBC) [Entitic vol] 85.6 fL Normal 80.0-100.0 [facility] Comment on above: Performed By: #### C BCWD #### [facility] [address] [place] [address] Monocytes (Bld) [#/Vol] 0.4 10*3/uL Normal 0.2-0.8 [facility] Comment on above: Performed By: #### C BCWD #### [facility] [address] [place] [address] Monocytes/100 WBC (Bld) 12.2 % Normal [facility] Comment on above: Performed By: #### C BCWD #### [facility] [address] [place] [address] Neutrophils (Bld) [#/Vol] 2.4 10*3/uL Normal 1.4-6.5 [facility] Comment on above: Performed By: #### C BCWD #### [facility] [address] [place] [address] Neutrophils/100 WBC (Bld) 70.0 % Normal [facility] Comment on above: Performed By: #### C BCWD #### [facility] [address] [place] [address] Platelets (Bld) [#/Vol] 139 10*3/uL Normal 130-400 [facility] Comment on above: Performed By: #### C BCWD #### [facility] [address] [place] [address] RBC (Bld) [#/Vol] 4.35 10*6/uL Low 4.70-6.10 [facility] Comment on above: Performed By: #### C BCWD #### [facility] [address] [place] [address] WBC (Bld) [#/Vol] 3.4 10*3/uL Low 4.8-10.8 [facility] Comment on above: Performed By: #### C BCWD #### [facility] [address] [place] [address] Platelet Slide Review Normal Normal [facility] Comment on above: Performed By: #### C BCWD #### [facility] [address] [place] [address] Comprehensive Metabolic Pane bart 03-30-2021 Albumin [Mass/Vol] 4.1 g/dL Normal 3.5-4.6 [facility] Comment on above: Performed By: #### C BCWD #### [facility] [address] [place] [address] ALP [Catalytic activity/Vol] 63 U/L Normal 35-104 [facility] Comment on above: Performed By: #### C BCWD #### [facility] [address] [place] [address] ALT [Catalytic activity/Vol] 16 U/L Normal 0-41 [facility] Comment on above: Performed By: #### C BCWD #### [facility] [address] [place] [address] Anion gap [Moles/Vol] 8 mmol/L Low 9-15 [facility] Comment on above: Performed By: #### C BCWD #### [facility] [address] [place] [address] AST [Catalytic activity/Vol] 15 U/L Normal 0-40 [facility] Comment on above: Performed By: #### C BCWD #### [facility] [address] [place] [address] Bilirubin [Mass/Vol] 0.3 mg/dL Normal 0.2-0.7 [facility] Comment on above: Performed By: #### C BCWD #### [facility] [address] [place] [address] Calcium [Mass/Vol] 9.2 mg/dL Normal 8.5-9.9 [facility] Comment on above: Performed By: #### C BCWD #### [facility] [address] [place] [address] Chloride [Moles/Vol] 102 mmol/L Normal 95-107 [facility] Comment on above: Performed By: #### C BCWD #### [facility] [address] [place] [address] CO2 [Moles/Vol] 30 mmol/L Normal 20-31 [facility] Comment on above: Performed By: #### C BCWD #### [facility] [address] [place] [address] Creatinine [Mass/Vol] 0.84 mg/dL Normal 0.70-1.20 [facility] Comment on above: Performed By: #### C BCWD #### [facility] [address] [place] [address] GFR >60.0 Normal >60 [facility] Comment on above: Result Comment: >60 mL/min/1.73m2 EGFR, calc. for ages 18 and older using the MDRD formula (not corrected for weight), is valid for stable renal function. Performed By: #### C BCWD #### [facility] [address] [place] [address] GFR/1.73 sq M.predicted among blacks MDRD (S/P/Bld) [Vol rate/Area] mL/min/{1.73_m2} Normal >60 [facility] Comment on above: Result Comment: >60 mL/min/1.73m2 EGFR, calc. for ages 18 and older using the MDRD formula (not corrected for weight), is valid for stable renal function. Performed By: #### C BCWD #### [facility] [address] [place] [address] Globulin (S) [Mass/Vol] 2.9 g/dL Normal 2.3-3.5 [facility] Comment on above: Performed By: #### C BCWD #### [facility] [address] [place] [address] Glucose [Mass/Vol] 95 mg/dL Normal 70-99 [facility] Comment on above: Performed By: #### C BCWD #### [facility] [address] [place] [address] Potassium [Moles/Vol] 4.1 mmol/L Normal 3.4-4.9 [facility] Comment on above: Performed By: #### C BCWD #### [facility] [address] [place] [address] Protein [Mass/Vol] 7.0 g/dL Normal 6.3-8.0 [facility] Comment on above: Performed By: #### C BCWD #### [facility] [address] [place] [address] Sodium [Moles/Vol] 140 mmol/L Normal 135-144 [facility] Comment on above: Performed By: #### C BCWD #### [facility] [address] [place] [address] Urea nitrogen [Mass/Vol] 9 mg/dL Normal 6-20 [facility] Comment on above: Performed By: #### C BCWD #### [facility] [address] [place] [address] Comprehensive Metabolic Pane lOrdered By: Tasneem Story on 03-30-2021 Albumin [Mass/Vol] 4.1 g/dL 3.5 - 4.6 g/dL [facility] Phone: ALP (Bld) [Catalytic activity/Vol] 63 U/L 35 - 104 U/L [facility] Phone: ALT [Catalytic activity/Vol] 16 U/L 0 - 41 U/L [facility] Phone: Anion gap [Moles/Vol] 8 mmol/L Low [facility] [employer] Phone: AST [Catalytic activity/Vol] 15 U/L 0 - 40 U/L [facility] Phone: Bilirubin [Mass/Vol] 0.3 mg/dL 0.2 - 0 .7 mg/dL [facility] Work Phone: Calcium [Mass/Vol] 9.2 mg/dL 8.5 - 9.9 mg/dL [facility] Phone: Chloride [Moles/Vol] 102 mmol/L [facility] [employer] Work Phone: CO2 [Moles/Vol] 30 mmol/L [facility] Work Phone: Creatinine [Mass/Vol] 0.84 mg/dL 0.70 - 1.20 mg/dL [facility] Phone: Free PSA/Total PSA [Mass fraction] 7.0 g/dL 6.3 - 8.0 g/dL [facility] Phone: GFR >60.0 >60 [employer] Work Phone: Comment on above: >60 mL/min/1.73m2 EG FR, calc. for ages 18 and older using the MDRD formula (not corrected for weight), is valid for stable renal function. GFR Non- >60.0 >60 [facility] Work Phone: Comment on above: >60 mL/min/1.73m2 EG FR, calc. for ages 18 and older using the MDRD formula (not corrected for weight), is valid for stable renal function. Globulin (S) [Mass/Vol] 2.9 g/dL 2.3 - 3.5 g/dL [facility] Phone: Glucose [Mass/Vol] 95 mg/dL 70 - 99 mg/dL [facility] Phone: Interpretation and review of laboratory results Abnormal [facility] Work Phone: Potassium [Moles/Vol] 4.1 mmol/L [facility] [employer] Work Phone: Sodium [Moles/Vol] 140 mmol/L [employer] Phone: Urea nitrogen (BldV) [Mass/Vol] 9 mg/dL 6 - 20 mg/dL [employer] Phone: FL ESOPHAGRAMOrdered By: Gael Carter on 03-30-2021 Unremarkable esophagram. [employer] Phone: EXAMINATION: FL ESOPHAGRAM HISTORY: R13.10 Dysphagia, [...] Normal Other Findings: No other significant abnormality. [employer] Phone: Jaiden, po Incoming Radiant Results From [employer] - 03/30/2021 2:03 PM EDT EXAMINATION: FL [...] No other significant abnormality. IMPRESSION: Unremarkable esophagram. [employer] Phone: [employer] Phone: FL ESOPHAGRAMon 03-30-2021 FL ESOPHAGRAM EXAMINATION: [...] Elgin Knowles MD 03/30/21 Final result Normal [facility] Magnesiumon 03-30-2021 Magnesium [Mass/Vol] 2.0 mg/dL Normal 1.7-2.4 [facility] Comment on above: Performed By: #### C BCWD #### [facility] [address] [place] [address] MagnesiumOrdered By: Tasneem Sauer ilslauren on 03-30-2021 Magnesium [Mass/Vol] 2.0 mg/dL 1.7 - 2 .4 mg/dL [facility] Phone: No Panel InformationOrdered By: Tasneem Story on 03-30-2021 [employer] Phone: Troponinon 03-30-2021 Troponin I.cardiac [Mass/Vol] ng/mL Normal 0.000-0.01 [facility] Comment on above: Result Comment: Meth odology by Troponin T. Performed By: #### C BCWD #### [facility] [address] [facility] [address] TroponinOrdered By: Tasneem Sigala lson on 03-30-2021 Troponin I.cardiac [Mass/Vol] ng/mL 0.000 - 0.010 ng/mL [facility] Phone: Comment on above: Methodology by Tropo jimmie Barron. [facility] Phone: XR CHEST PORTABLEon 03-30-20 XR CHEST PORTABLE EXAMINATION: XR CHES T PORTABLE CLINICAL HISTORY: CHEST COMPARISONS: MARCH 29, 2025 FINDINGS: Osseous structures intact. Cardiopericardial silhouette normal. Pulmonary vasculature normal. Lungs clear. IMPRESSION: NO ACUTE CARDIOPULMONARY DISEASE. Interpreted by: Max Atkins MD Signed by: Max Atkins MD 03/30/21 Final result Normal [facility] XR CHEST PORTABLEOrdered By: Tasneem Story on 03-30-2021 NO ACUTE CARDIOPULMO NARY DISEASE. [employer] Phone: EXAMINATION: XR CHES T PORTABLE CLINICAL HISTORY: CHEST COMPARISONS: MARCH 29, 2025 FINDINGS: Osseous structures intact. Cardiopericardial silhouette normal. Pulmonary vasculature normal. Lungs clear. [employer] Phone: Jaiden, Chpo Incoming Radiant Results From [employer] - 03/30/2021 1:39 PM EDT EXAMINATION: XR CHEST PORTABLE CLINICAL HISTORY: CHEST COMPARISONS: MARCH 29, 2025 FINDINGS: Osseous structures intact. Cardiopericardial silhouette normal. Pulmonary vasculature normal. Lungs clear. IMPRESSION: NO ACUTE CARDIOPULMONARY DISEASE. [employer] Phone: [employer] Phone: Alcoholon 03-29-2021 Blood Alcohol Concentration Not indicated Normal [facility] Comment on above: Performed By: #### A LCOH #### [facility] [address] [facility] [address] Ethanol [Mass/Vol] mg/dL Normal [facility] Comment on above: Performed By: #### A LCOH #### [facility] [address] [facility] [address] CBC Auto DifferentialOrdered By: Inez Valdes on 03-29-2021 Anisocytosis Ql (Bld) 1+ [facility] [employer] Phone: Bands Relative 3 % [employer] Work Phone: Basophils (Bld) [#/Vol] 0.0 10*3/uL 0.0 - 0.2 K/uL [employer] Phone: Basophils/100 WBC (Bld) 1.0 % [employer] Phone: Eosinophils (Bld) [#/Vol] 0.2 10*3/uL 0.0 - 0.7 K/uL [employer] Phone: Eosinophils/100 WBC (Bld) 5 % [employer] Phone: Hematocrit (Bld) [Volume fraction] 38.9 % Low 42.0 - 52.0 % [facility] Phone: Hemoglobin.gastrointe stinal spec 1 Ql (Stl) 12.9 g/dL Low 14.0 - 18.0 g/dL [facility] Phone: Interpretation and review of laboratory results Abnormal [facility] Phone: Lymphocytes (Bld) [#/Vol] 1.2 10*3/uL 1.0 - 4.8 K/uL [facility] Phone: Lymphocytes/100 WBC (Bld) 40.0 % [facility] Phone: MCH (RBC) [Entitic mass] 27.9 pg 27.0 - 31.3 pg [facility] Phone: MCHC (RBC) [Mass/Vol] 33.1 % 33.0 - 37.0 % [employer] Phone: MCV (RBC) [Entitic vol] 84.3 fL 80.0 - 100.0 fL [employer] Phone: Microcytes 1+ [employer] Phone: Monocytes (Bld) [#/Vol] 0.2 10*3/uL 0.2 - 0.8 K/uL [facility] Phone: Monocytes/100 WBC (Bld) 4.7 % [employer] Phone: Neutrophils Absolute 1.5 K/uL 1.4 - 6 .5 K/uL [facility] Phone: Neutrophils/100 WBC (Bld) 46.0 % [facility] Phone: Platelet distribution width (Bld) [Ratio] 14.0 % 11.5 - 14.5 % [facility] Phone: PLATELET SLIDE REVIEW Normal [facility] [employer] Phone: Platelets (Bld) [#/Vol] 147 10*3/uL 130 - 400 K/uL [facility] Phone: Promyelocytes Percent 1 % Abnormal [facility] [employer] Phone: RBC (Bld) [#/Vol] 4.62 10*6/uL Low [facility] Phone: Smudge Cells 3.7 [facility] Phone: WBC (Bld) [#/Vol] 3.0 10*3/uL Low 4.8 - 10.8 K/uL [facility] Phone: [employer] Phone: CBC With Platelet and Differ entialon 03-29-2021 Basophils (Bld) [#/Vol] 0.0 10*3/uL Normal 0.0-0.2 [facility] Comment on above: Performed By: #### C BCWD #### [facility] [address] [place] [address] Basophils/100 WBC (Bld) 1.0 % Normal [facility] Comment on above: Performed By: #### C BCWD #### [facility] [address] [place] [address] Eosinophils (Bld) [#/Vol] 0.2 10*3/uL Normal 0.0-0.7 [facility] Comment on above: Performed By: #### C BCWD #### [facility] [address] [place] [address] Eosinophils/100 WBC (Bld) 5.0 % Normal [facility] Comment on above: Performed By: #### C BCWD #### [facility] [address] [place] [address] Erythrocyte distribution width (RBC) [Ratio] 14.0 % Normal 11.5-14.5 [facility] Comment on above: Performed By: #### C BCWD #### [facility] [address] [place] [address] Hematocrit (Bld) [Volume fraction] 38.9 % Low 42.0-52.0 [facility] Comment on above: Performed By: #### C BCWD #### [facility] [address] [place] [address] Hemoglobin (Bld) [Mass/Vol] 12.9 g/dL Low 14.0-18.0 [facility] Comment on above: Performed By: #### C BCWD #### [facility] [address] [place] [address] Lymphocytes (Bld) [#/Vol] 1.2 10*3/uL Normal 1.0-4.8 [facility] Comment on above: Performed By: #### C BCWD #### [facility] [address] [place] [address] Lymphocytes/100 WBC (Bld) 40.0 % Normal [facility] Comment on above: Performed By: #### C BCWD #### [facility] [address] [place] [address] MCH (RBC) [Entitic mass] 27.9 pg Normal 27.0-31.3 [facility] Comment on above: Performed By: #### C BCWD #### [facility] [address] [place] [address] MCHC 33.1 % Normal 33.0-37.0 [facility] Comment on above: Performed By: #### C BCWD #### [facility] [address] [place] [address] MCV (RBC) [Entitic vol] 84.3 fL Normal 80.0-100.0 [facility] Comment on above: Performed By: #### C BCWD #### [facility] [address] [place] [address] Monocytes (Bld) [#/Vol] 0.2 10*3/uL Normal 0.2-0.8 [facility] Comment on above: Performed By: #### C BCWD #### [facility] [address] [place] [address] Monocytes/100 WBC (Bld) 4.7 % Normal [facility] Comment on above: Performed By: #### C BCWD #### [facility] [address] [place] [address] Neutrophils (Bld) [#/Vol] 1.5 10*3/uL Normal 1.4-6.5 [facility] Comment on above: Performed By: #### C BCWD #### [facility] [address] [place] [address] Neutrophils/100 WBC (Bld) 46.0 % Normal [facility] Comment on above: Performed By: #### C BCWD #### [facility] [address] [place] [address] Platelets (Bld) [#/Vol] 147 10*3/uL Normal 130-400 [facility] Comment on above: Performed By: #### C BCWD #### [facility] [address] [place] [address] RBC (Bld) [#/Vol] 4.62 10*6/uL Low 4.70-6.10 [facility] Comment on above: Performed By: #### C BCWD #### [facility] [address] [place] [address] WBC (Bld) [#/Vol] 3.0 10*3/uL Low 4.8-10.8 [facility] Comment on above: Performed By: #### C BCWD #### [facility] [address] [place] [address] Anisocytosis Ql (Bld) 1+ Normal [facility] Comment on above: Performed By: #### C BCWD #### [facility] [address] [place] [address] Bands 3 % Normal [facility] Comment on above: Performed By: #### C BCWD #### [facility] [address] [place] [address] Microcytic 1+ Normal [facility] Comment on above: Performed By: #### C BCWD #### [facility] [address] [place] [address] Platelet Slide Review Normal Normal [facility] Comment on above: Performed By: #### C BCWD #### [facility] [address] [place] [address] Promyelocyte 1 % Abnormal [facility] Comment on above: Performed By: #### C BCWD #### [facility] [address] [place] [address] Smudge Cells 3.7 Normal [facility] Comment on above: Performed By: #### C BCWD #### [facility] [address] [place] [address] Comprehensive Metabolic Pane bart 03-29-2021 Albumin [Mass/Vol] 4.3 g/dL Normal 3.5-4.6 [facility] Comment on above: Performed By: #### C MP #### [facility] [address] [place] [address] ALP [Catalytic activity/Vol] 68 U/L Normal 35-104 [facility] Comment on above: Performed By: #### C MP #### [facility] [address] [place] [address] ALT [Catalytic activity/Vol] 18 U/L Normal 0-41 [facility] Comment on above: Performed By: #### C MP #### [facility] [address] [place] [address] Anion gap [Moles/Vol] 10 mmol/L Normal 9-15 [facility] Comment on above: Performed By: #### C MP #### [facility] [address] [place] [address] AST [Catalytic activity/Vol] 20 U/L Normal 0-40 [facility] Comment on above: Performed By: #### C MP #### [facility] [address] [place] [address] Bilirubin [Mass/Vol] mg/dL Normal 0.2-0.7 [facility] Comment on above: Performed By: #### C MP #### [facility] [address] [place] [address] Calcium [Mass/Vol] 9.5 mg/dL Normal 8.5-9.9 [facility] Comment on above: Performed By: #### C MP #### [facility] [address] [place] [address] Chloride [Moles/Vol] 102 mmol/L Normal 95-107 [facility] Comment on above: Performed By: #### C MP #### [facility] [address] [place] [address] CO2 [Moles/Vol] 24 mmol/L Normal 20-31 [facility] Comment on above: Performed By: #### C MP #### [facility] [address] [place] [address] Creatinine [Mass/Vol] 0.80 mg/dL Normal 0.70-1.20 [facility] Comment on above: Performed By: #### C MP #### [facility] [address] [place] [address] GFR >60.0 Normal >60 [facility] Comment on above: Result Comment: >60 mL/min/1.73m2 EGFR, calc. for ages 18 and older using the MDRD formula (not corrected for weight), is valid for stable renal function. Performed By: #### C MP #### [facility] [address] [place] [address] GFR/1.73 sq M.predicted among blacks MDRD (S/P/Bld) [Vol rate/Area] mL/min/{1.73_m2} Normal >60 [facility] Comment on above: Result Comment: >60 mL/min/1.73m2 EGFR, calc. for ages 18 and older using the MDRD formula (not corrected for weight), is valid for stable renal function. Performed By: #### C MP #### [facility] [address] [place] [address] Globulin (S) [Mass/Vol] 2.8 g/dL Normal 2.3-3.5 [facility] Comment on above: Performed By: #### C MP #### [facility] [address] [place] [address] Glucose [Mass/Vol] 91 mg/dL Normal 70-99 [facility] Comment on above: Performed By: #### C MP #### [facility] [address] [place] [address] Potassium [Moles/Vol] 4.1 mmol/L Normal 3.4-4.9 [facility] Comment on above: Performed By: #### C MP #### [facility] [address] [place] [address] Protein [Mass/Vol] 7.1 g/dL Normal 6.3-8.0 [facility] Comment on above: Performed By: #### C MP #### [facility] [address] [place] [address] Sodium [Moles/Vol] 136 mmol/L Normal 135-144 [facility] Comment on above: Performed By: #### C MP #### [facility] [address] [place] [address] Urea nitrogen [Mass/Vol] 11 mg/dL Normal 6-20 [facility] Comment on above: Performed By: #### C MP #### [facility] [address] [place] [address] Comprehensive Metabolic Pane lOrdered By: Inez Valdes on 03-29-2021 Albumin [Mass/Vol] 4.3 g/dL 3.5 - 4.6 g/dL [facility] [employer] Work Phone: ALP (Bld) [Catalytic activity/Vol] 68 U/L 35 - 104 U/L [facility] Work Phone: ALT [Catalytic activity/Vol] 18 U/L 0 - 41 U/L [facility] Work Phone: Anion gap [Moles/Vol] 10 mmol/L [facility] Work Phone: AST [Catalytic activity/Vol] 20 U/L 0 - 40 U/L [facility] Work Phone: Bilirubin [Mass/Vol] mg/dL 0.2 - 0 .7 mg/dL [facility] Work Phone: Calcium [Mass/Vol] 9.5 mg/dL 8.5 - 9.9 mg/dL [facility] Work Phone: Chloride [Moles/Vol] 102 mmol/L [facility] [employer] Work Phone: CO2 [Moles/Vol] 24 mmol/L [facility] Work Phone: Creatinine [Mass/Vol] 0.8 mg/dL 0.70 - 1.20 mg/dL [facility] [employer] Work Phone: Free PSA/Total PSA [Mass fraction] 7.1 g/dL 6.3 - 8.0 g/dL [facility] [employer] Work Phone: GFR >60.0 >60 [facility] [employer] Work Phone: Comment on above: >60 mL/min/1.73m2 EG FR, calc. for ages 18 and older using the MDRD formula (not corrected for weight), is valid for stable renal function. GFR Non- >60.0 >60 [facility] [employer] Work Phone: Comment on above: >60 mL/min/1.73m2 EG FR, calc. for ages 18 and older using the MDRD formula (not corrected for weight), is valid for stable renal function. Globulin (S) [Mass/Vol] 2.8 g/dL 2.3 - 3.5 g/dL [facility] [employer] Work Phone: Glucose [Mass/Vol] 91 mg/dL 70 - 99 mg/dL [employer] Phone: Potassium [Moles/Vol] 4.1 mmol/L [facility] [employer] Phone: Sodium [Moles/Vol] 136 mmol/L [facility]: Urea nitrogen (BldV) [Mass/Vol] 11 mg/dL 6 - 20 mg/dL [employer] Phone: [employer] Phone: EthanolOrdered By: Inez ratliff on 03-29-2021 Ethanol Lvl <10 mg/dL [employer] Phone: Ethanol percent Not indicated G/dL [employer] Phone: [employer] Phone: No Panel InformationOrdered By: Inez Valdes on 03-29-2021 [employer] Phone: PROCALCITONINOrdered By: Hannah Valdes on 03-29-2021 Procalcitonin 0.03 ng/mL 0.00 - 0.15 ng/mL [employer] Phone: Comment on above: Suspected Sepsis: Low [...] to determine the patient's Mortality Risk Prognosis (www.buyifz-yta-qgcfffuwhu.com) In healthy neonates, plasma Procalcitonin (PCT) concentrations increase gradually after , reaching peak values at about 24 hours of age then decrease to normal values below 0.5 ng/mL by 48-72 hours of age. Procalcitoninon 03-29-2021 Procalcitonin 0.03 ng/mL Normal 0.00-0.15 [facility] Comment on above: Result Comment: Susp ected [...] to determine the patient's Mortality Risk Prognosis (www.oufbod-ymy-wxzexagath.BoardBookit) In healthy neonates, plasma Procalcitonin (PCT) concentrations increase gradually after , reaching peak values at about 24 hours of age then decrease to normal values below 0.5 ng/mL by 48-72 hours of age. Performed By: #### P ROCT #### [facility] [address] [facility] [address] Troponinon 03-29-2021 Troponin I.cardiac [Mass/Vol] ng/mL Normal 0.000-0.01 [facility] Comment on above: Result Comment: Meth odology by Troponin T. Performed By: #### T ROP #### [facility] [address] [facility] [address] TroponinOrdered By: Inez olivarez on 03-29-2021 Troponin I.cardiac [Mass/Vol] ng/mL 0.000 - 0.010 ng/mL [facility] [employer] Work Phone: Comment on above: Methodology by Isabelle CUEVAS Drugs of Abuse Panelon Drug Screen Comment see below Normal [facility] Comment on above: Result Comment: This method is a screening test to detect only these drug classes as part of a medical workup. Confirmatory testing by another method should be ordered if clinically indicated. Performed By: #### U DRGS #### [facility] [address] [place] [address] UR Amphetamines Screen Negative Normal Negative < [facility] Comment on above: Performed By: #### U DRGS #### [facility] [address] [place] [address] UR Barbiturates Screen Negative Normal Negative < [facility] Comment on above: Performed By: #### U DRGS #### [facility] [address] [place] [address] UR Benzo Screen Negative Normal Negative < [facility] Comment on above: Performed By: #### U DRGS #### [facility] [address] [place] [address] UR Cannabinoids Screen Negative Normal Negative < [facility] Comment on above: Performed By: #### U DRGS #### [facility] [address] [place] [address] UR Cocaine Screen Negative Normal Negative < [facility] Comment on above: Performed By: #### U DRGS #### [facility] [address] [place] [address] UR Methadone Screen Negative Normal Negative < [facility] Comment on above: Performed By: #### U DRGS #### [facility] [address] [place] [address] UR Opiates Screen Negative Normal Negative < [facility] Comment on above: Performed By: #### U DRGS #### [facility] [address] [place] [address] UR Oxycodone Screen Negative Normal Negative < [facility] Comment on above: Performed By: #### U DRGS #### [facility] [address] [place] [address] UR PCP Screen Negative Normal Negative < [facility] Comment on above: Performed By: #### U DRGS #### [facility] [address] [place] [address] UR Propoxyphene Screen Negative Normal Negative < [facility] Comment on above: Performed By: #### U DRGS #### [facility] [address] [place] [address] US ABDOMEN LIMITEDon 021 US ABDOMEN LIMITED [...] Elgin Knowles MD 03/30/21 Final result Normal [facility] Urine Drug ScreenOrdered By: Inez Valdes on 03-29-2021 Amphetamine Screen, Urine Negative Negative <1000 ng/mL [employer] Phone: Barbiturate Screen, Ur Negative Negative < 200 ng/mL [employer] Phone: Benzodiazepine Screen, Urine Negative Negative < 200 ng/mL [employer] Phone: Cannabinoid Scrn, Ur Negative Negativ e < 50 ng/mL [employer] Phone: Cocaine Metabolite Screen, Urine Negative Negative < 300 ng/mL [employer] Phone: Drug Screen Comment: see below [employer] Phone: Comment on above: This method is a scr eening test to detect only these drug classes as part of a medical workup. Confirmatory testing by another method should be ordered if clinically indicated. Methadone Screen, Urine Negative Negative <300 ng/mL [employer] Phone: Opiate Scrn, Ur Negative Negative < 300 ng/mL [employer] Phone: Oxycodone Urine Negative Negative <100 ng/mL [employer] Phone: PCP Screen, Urine Negative Negative < 25 ng/mL [employer] Phone: Propoxyphene Scrn, Ur Negative Negati ve <300 ng/mL [employer] Phone: [employer] Phone: XR CHEST PORTABLEon 03-29-20 XR CHEST [...] Yang Black MD 03/30/21 Final result Normal [facility] CBC AND DIFFERENTIALon 03-24 % AUTOMATED IMMATURE GRAN 0.5 % Normal 0.0 - 0.9 [facility] Comment on above: Result Comment: Kath ture Granulocyte Count (IG) includes promyelocytes, myelocytes and metamyelocytes but does not include bands. Percent differential counts (%) should be interpreted in the context of the absolute cell counts (cells/L). Performed By: #### C BCDF #### [address] [address] Basophils (Bld) [#/Vol] 0.02 10*3/uL Normal 0.00 - 0.10 [facility] Comment on above: Performed By: #### C BCDF #### [address] [address] Basophils/100 WBC (Bld) 0.5 % Normal 0.0 - 2.0 [facility] Comment on above: Performed By: #### C BCDF #### [address] [address] Eosinophils (Bld) [#/Vol] 0.07 10*3/uL Normal 0.00 - 0.70 [facility] Comment on above: Performed By: #### C BCDF #### [address] [address] Eosinophils/100 WBC (Bld) 1.9 % Normal 0.0 - 6.0 [facility] Comment on above: Performed By: #### C BCDF #### [address] [address] Erythrocyte distribution width (RBC) [Ratio] 13.0 % Normal 11.5 - 14.5 [facility] Comment on above: Performed By: #### C BCDF #### [address] [address] Hematocrit (Bld) [Volume fraction] 40.0 % Low 41.0 - 52.0 [facility] Comment on above: Performed By: #### C BCDF #### [address] [address] Hemoglobin (Bld) [Mass/Vol] 13.0 g/dL Low 13.5 - 17.5 [facility] Comment on above: Performed By: #### C BCDF #### [address] [address] Lymphocytes (Bld) [#/Vol] 0.97 10*3/uL Low 1.20 - 4.80 [facility] Comment on above: Performed By: #### C BCDF #### [address] [address] Lymphocytes/100 WBC (Bld) 26.4 % Normal 13.0 - 44.0 [facility] Comment on above: Performed By: #### C BCDF #### [address] [address] MCHC (RBC) [Mass/Vol] 32.5 g/dL Normal 32.0 - 36.0 [facility] Comment on above: Performed By: #### C BCDF #### [address] [address] MCV (RBC) [Entitic vol] 85 fL Normal 80 - 100 [facility] Comment on above: Performed By: #### C BCDF #### [address] [address] Monocytes (Bld) [#/Vol] 0.40 10*3/uL Normal 0.10 - 1.00 [facility] Comment on above: Performed By: #### C BCDF #### [address] [address] Monocytes/100 WBC (Bld) 10.9 % Normal 2.0 - 10.0 [facility] Comment on above: Performed By: #### C BCDF #### [address] [address] Neutrophils (Bld) [#/Vol] 2.20 10*3/uL Normal 1.20 - 7.70 [facility] Comment on above: Performed By: #### C BCDF #### [address] [address] Neutrophils/100 WBC (Bld) 59.8 % Normal 40.0 - 80.0 [facility] Comment on above: Performed By: #### C BCDF #### [address] [address] NUCLEATED RBC 0.0 /100 WBC Normal 0.0 - 0.0 [facility] Comment on above: Performed By: #### C BCDF #### [address] [address] Platelets (Bld) [#/Vol] 152 10*3/uL Normal 150 - 450 [facility] Comment on above: Performed By: #### C BCDF #### [address] [address] RBC 4.68 x10E12/L Normal 4.50 - 5.90 [facility] Comment on above: Performed By: #### C BCDF #### [address] [address] WBC (Bld) [#/Vol] 3.7 10*3/uL Low 4.4 - 11.3 [facility] Comment on above: Performed By: #### C BCDF #### [address] [address] CHEST 1 VIEWon 03-24-2021 CHEST 1 VIEW Patient Name: HOSEA ALVAREZ STUDY: CHEST 1 VIEW; 03/23/2021 10:50 pm INDICATION: Chest Pain. COMPARISON: 03/14/2021 ACCESSION NUMBER(S): [id number] ORDERING CLINICIAN: CHEO TIWARI FINDINGS: Cardiomegaly. The pulmonary vasculature is within normal limits. No consolidation, pleural effusion, or pneumothorax. IMPRESSION: Cardiomegaly without evidence of acute disease in the chest. Electronically signed by: ROBINA NIELSEN MD Normal [facility] COMPREHENSIVE PANELon 2020 Albumin [Mass/Vol] 4.3 g/dL Normal 3.4 - 5.0 [facility] Comment on above: Performed By: #### C MP #### [address] [address] ALP [Catalytic activity/Vol] 59 U/L Normal 33 - 120 [facility] Comment on above: Performed By: #### C MP #### [address] [address] ALT [Catalytic activity/Vol] 17 U/L Normal 10 - 52 [facility] Comment on above: Result Comment: Yanni ents treated with Sulfasalazine may generate falsely decreased results for ALT. Performed By: #### C MP #### [address] [address] Anion gap [Moles/Vol] 12 mmol/L Normal 10 - 20 [facility] Comment on above: Performed By: #### C MP #### [address] [address] AST [Catalytic activity/Vol] 15 U/L Normal 9 - 39 [facility] Comment on above: Performed By: #### C MP #### [address] [address] Bilirubin [Mass/Vol] 0.4 mg/dL Normal 0.0 - 1.2 [facility] Comment on above: Performed By: #### C MP #### [address] [address] Calcium [Mass/Vol] 9.0 mg/dL Normal 8.6 - 10.3 [facility] Comment on above: Performed By: #### C MP #### [address] [address] Chloride [Moles/Vol] 102 mmol/L Normal 98 - 107 [facility] Comment on above: Performed By: #### C MP #### [address] [address] Creatinine [Mass/Vol] 0.78 mg/dL Normal 0.50 - 1.30 [facility] Comment on above: Performed By: #### C MP #### [address] [address] GFR- AM. >60 Normal >60 [facility] Comment on above: Result Comment: CALC ULATIONS OF ESTIMATED GFR ARE PERFORMED USING THE MDRD STUDY EQUATION FOR THE IDMS-TRACEABLE CREATININE METHODS. CLIN CHEM 2007;53:766-72 Performed By: #### C MP #### [address] [address] GFR-NON AM. >60 Normal >60 [facility] Comment on above: Performed By: #### C MP #### [address] [address] Glucose [Mass/Vol] 94 mg/dL Normal 74 - 99 [facility] Comment on above: Performed By: #### C MP #### [address] [address] HCO3 (Bld) [Moles/Vol] 28 mmol/L Normal 21 - 32 [facility] Comment on above: Performed By: #### C MP #### [address] [address] Potassium [Moles/Vol] 4.0 mmol/L Normal 3.5 - 5.3 [facility] Comment on above: Performed By: #### C MP #### [address] [address] Protein [Mass/Vol] 6.8 g/dL Normal 6.4 - 8.2 [facility] Comment on above: Performed By: #### C MP #### [address] [address] Sodium [Moles/Vol] 138 mmol/L Normal 136 - 145 [facility] Comment on above: Performed By: #### C MP #### [address] [address] Urea nitrogen [Mass/Vol] 12 mg/dL Normal 6 - 23 [facility] Comment on above: Performed By: #### C MP #### [address] [address] D-DIMER, VTE EXCLUSIONon D-DIMER, VTE EXCLUSION 344 ng/mL FEU Normal < or = 500 [facility] Comment on above: Result Comment: The VTE [...] Performed By: #### D IMEX #### [address] [address] LIPASEon 03-24-2021 Lipase [Catalytic activity/Vol] 13 U/L Normal 9 - 82 [facility] Comment on above: Result Comment: Jocelyn puncture immediately after or during the administration of Metamizole may lead to falsely low results. Testing should be performed immediately prior to Metamizole dosing. W-yyyehv-k-benzoquinone imine (metabolite of Acetaminophen) will generate erroneously low results in samples for patients that have taken toxic doses of acetaminophen. Performed By: #### L IPAS #### [address] [place] [address] MAGNESIUMon 03-24-2021 Magnesium [Mass/Vol] 2.00 mg/dL Normal 1.60 - 2.40 [facility] Comment on above: Performed By: #### M G #### [address] [place] [address] Provider Note - ED v2on Provider Note [...] is recommended to follow with his PCP, expressive art therapist, vascular surgeon, instructional interventionist regarding his chronic complaints. He is recommended to return to the ED with any persistent or worsening symptoms such as chest pain, extremity numbness or tingling or weakness, abdominal pain, or any other concerns. Patient in agreement and understanding of treatment plan. All questions answered. Patient stable at time of discharge. EKG with a rate of 68, sinus rhythm, left axis. CT 182 ms. QRS 98 ms. QTc [address] depressions and minimal ST segment elevations in lead I and aVL as well as an inverted T wave in lead III. Similar when compared to previous EKG from 02/22/21 I reviewed the case with the attending ED physician. The attending ED physician agrees with the plan. Patient and/or patients manufacturers service representative was counseled regarding labs, imaging, likely diagnosis, and plan. All questions were answered. Assessment: Hemorrhoids, constipation, chest tightness Disposition: discharge (more content not included)... Normal [facility] TROPONIN Ion 03-24-2021 TROPONIN I Canceled Normal [facility] Comment on above: Order Comment: TEST TROPONIN [...] is performed using different testing methodology at [facility] than at other system [facility]. Direct result comparisons should only be made within the same method. Performed By: #### T ROP2 ####[id number] [facility] [place] [address] Troponin I.cardiac [Mass/Vol] ng/mL Normal 0.00 - 0.03 [facility] Comment on above: Result Comment: LESS THAN [...] is performed using different testing methodology at [facility] than at other [facility]. Direct result comparisons should only be made within the same method. Performed By: #### T ROP2 #### [facility] [id number] [facility] [place] [address] Chart Updateon 03-23-2021 Chart Update Message Date: [...] (Bld) 0.5 % 0.0 - 2.0 [facility] Work Phone: Erythrocyte distribution width (RBC) [Ratio] 13.0 % See Below [facility] Work Phone: Comment on above: Reference Range: [...] U/L 33 - 120 [facility] [employer] Work Phone: [phone] ALT With P-5'-P [Catalytic activity/Vol] 17 U/L 10 - 52 [facility] [employer] Work Phone: [phone] Comment on above: Patients treated wit h Sulfasalazine may generate falsely decreased results for ALT. Anion gap [Moles/Vol] 12 mmol/L 10 - 20 [facility] [employer] Work Phone: [phone] AST With P-5'-P [Catalytic activity/Vol] 15 U/L 9 - 39 [facility] [employer] Work Phone: [phone] Bilirubin [Mass/Vol] 0.4 mg/dL 0.0 - 1.2 [facility] [employer] Work Phone: [phone] Calcium [Mass/Vol] 9.0 mg/dL 8.6 - 10.3 [facility] [employer] Work Phone: [phone] Chloride [Moles/Vol] 102 mmol/L 98 - 107 [facility] [employer] Work Phone: [phone] CO2 [Moles/Vol] 28 mmol/L 21 - 32 [facility] Work Phone: [phone] Creatinine [Mass/Vol] 0.78 mg/dL See Below [facility] Work Phone: [phone] Comment on above: Reference Range: 0.5 0 - 1.30 Glucose [Mass/Vol] 94 mg/dL 74 - 99 [facility] Work Phone: [phone] Potassium [Moles/Vol] 4.0 mmol/L 3.5 - 5.3 [facility] Work Phone: [phone] Protein [Mass/Vol] 6.8 g/dL 6.4 - 8.2 [facility] Work Phone: [phone] Sodium [Moles/Vol] 138 mmol/L 136 - 145 [facility] Work Phone: Urea nitrogen [Mass/Vol] 12 mg/dL 6 - 23 [facility] Work Phone: Lipase, Serumon 03-23-2021 Lipase [Catalytic activity/Vol] 13 U/L 9 - 82 [facility] Work Phone: Comment on above: Venipuncture immedia tely after or during the administration of Metamizole may lead to falsely low results. Testing should be performed immediately prior to Metamizole dosing. B-ycbxwy-r-benzoquinone imine (metabolite of Acetaminophen) will generate erroneously low results in samples for patients that have taken toxic doses of acetaminophen. Magnesium, Serumon 1 Magnesium [Mass/Vol] 2.00 mg/dL See Below [facility] r 1800 Work Phone: Comment on above: Reference Range: 1.6 0 - 2.40 No Panel Informationon 03-23 >60 >60 [facility] Work Phone: Comment on above: CALCULATIONS OF NIKOLE MATED GFR ARE PERFORMED USING THE MDRD STUDY EQUATION FOR THE IDMS-TRACEABLE CREATININE METHODS. CLIN CHEM 2007;53:766-72 344 {ng/mL_FEU} < or = 500 [facility] Work Phone: Comment on [...] or PE exclusion.) [email or web address]?RetrieveTestByDateTim e?ObesxpsYX=[id number]&Da te=09-29-2020&Time=23%3a 02%3a26%3a00&TestType=EC G&Site=12&OutputType=PDF &Ext=PDF [facility] [...] PRN Outpatient Follow-up Status: Active Requested for: [id number] Patient Instructions You will need follow up for your ascending aortic aneurysm. As we discussed, I am dismssing you from my practice, but you can find a referral for a new expressive art therapist through your primary care physician, or the [facility], or any local hospital [facility]. Chief Complaint HOSEA ALVAREZ is being seen [...] visits with chest pain to ERs throughout [facility] since January of this year. He has [...] he had a stress test with a expressive art therapist in [place] two months ago, and was told it [...] Vital Signs Recorded: 23Mar2021 03:49PM Heart Rate90 Pqqpbrmw215 Wineeiagw53 Height5 ft 6 in Aluump985 lb BMI Ccllsaxyjz25.34 kg/m2 BSA Calculated1.95 Tobacco Useb) No Fall Screeninga) No falls within the last year O2 Xeifvtbfqe55 Physical Exam CHEST: clear to auscultation, respiratory [...] Learning Preferencesindividual instruction Cultural Considerationsnone Developmental Considerationsnone Presybeterian Considerationsnone Learning Assessment (Other Learner): Learning Assessment (Other Learner): Other learner availableno Pressure Injury/TB/Substance: Pressure Injury: Pressure Injury Present on Admissionno Do you have a coughno Substance Use Current or Former Historynever: Cigarette/Tobacco, e-Cigarette/Vaping, Alcohol, Street Drugs Admission Risk Screen: Significant IndicatorsComplete CAGE: CAGE: Is this an injured patient at a Trauma Center ([facility] /[place]): no Electronic Signatures: Lor Wong (BROOKLYNN) (Signed 23-Mar-2021 21:35) Authored: Preferred Language, Advanced Directives, Family Violence Adult, Learning Assessment (Patient), Learning Assessment (Other Learner), Pressure Injury/TB/Substance, Pressure Injury, CAGE Last Updated: 23-Mar-2021 21:35 by Lor Wong (RN) Normal [facility] Tobacco Screening.on 021 Fall risk assessment a) No falls within the last year [facility] -[employer] (STIE) 200 Work Phone: Tobacco use status CP b) No [facility] [facility] 200 Work Phone: Triage - EDon [...] BMI (kg/m2): 30.544 Calculated BSA (m2) 2.00 [place] Coma Scale: Best Eye Response: (E4) spontaneous [...] 23-Mar-2021 21:29 by Lor Wong (BROOKLYNN) Normal [facility] Troponin I, Serumon 03-23-20 Troponin I.cardiac [Mass/Vol] [...] is performed using different testing methodology at [facility] than at other [facility] [place] [facility]. Direct result comparisons should only be made [...] until 8 hours following last biotin administration. [employer] Anion gap [Moles/Vol] Anion Gap 15 MMOL/ L (0-19 MMOL/L) 0 - 19 MMOL/L [employer] Calcium [Mass/Vol] Calcium 9.0 MG/DL (8.5-10.4 MG/DL) [...] under 18 years of age. Performed at [address] [address] [facility] Glucose [Mass/Vol] Glucose 93 MG/DL (65 -99 MG/DL) 65 - 99 MG/DL [facility] Potassium [Moles/Vol] Potassium R 4.1 MM OL/L (3.4-5.1 MMOL/L) 3.4 - 5.1 MMOL/L [facility] Sodium [Moles/Vol] Sodium 137 MMOL/L (133-145 MMOL/L) 133 - 145 MMOL/L [facility] Troponin T.cardiac [Mass/Vol] HS Troponin T,Gen 5 [...] until 8 hours following last biotin administration. [facility] Urea nitrogen [Mass/Vol] BUN 12 MG/DL (8-25 MG/DL) 8 - 25 MG/DL [facility] Urea nitrogen/Creatinine [Mass ratio] BUN Creatinine Ratio 15.0 RATIO (8-21 RATIO) 8 - 21 RATIO [facility] Laboratory - Hematology and Cell countson 03-22-2021 Basophils (Bld) [#/Vol] Abs Baso 0.01 K/UL (0.00-0.22 K/UL) 0.00 - 0.22 K/UL [facility] Basophils/100 WBC (Bld) Basophil 0.30 % (0-1 %) 0 - 1 % [employer] Differential cell count method Nom (Bld) Diff Type AUTO DIFF (Reference Range: not available) [facility] Eosinophils (Bld) [#/Vol] Abs Eos 0.08 K/UL (0-0.45 K/UL) 0 - 0.45 K/UL [employer] Eosinophils/100 WBC (Bld) Eosinophil 2.70 % (0-3 %) 0 - 3 % [employer] Erythrocyte distribution width (RBC) [Entitic vol] RDW SD 38.5 FL (37.0-54.0 FL) 37.0 - 54.0 FL [employer] Erythrocyte distribution width (RBC) [Ratio] RDW CV 12.6 % (11.7-15.0 %) 11.7 - 15.0 % [employer] Hematocrit (Bld) [Volume fraction] HCT 41.4 % (41-50 %) 41 - 50 % [employer] Hemoglobin (Bld) [Mass/Vol] HGB 13.6 GM/DL (13.5-16.5 GM/DL) 13.5 - 16.5 GM/DL [employer] Immature granulocytes (Bld) [#/Vol] Abs Imm Neut 0.02 K/UL (0.0-0.1 K/UL) 0.0 - 0.1 K/UL [employer] Lymphocytes (Bld) [#/Vol] Abs Lymph 0.75 K/UL L (1.2-3.2 K/UL) Low 1.2 - 3.2 K/UL [employer] Lymphocytes/100 WBC (Bld) Lymphocyte 25.40 % (20-40 %) 20 - 40 % [employer] MCH (RBC) [Entitic mass] MCH 27.9 PG (26-34 PG) 26 - 34 PG [facility] MCHC (RBC) [Mass/Vol] MCHC 32.9 % (31-37 %) 31 - 37 % S MCV (RBC) [Entitic vol] MCV 85.0 FL (80-100 FL) 80 - 100 FL [facility] Monocytes (Bld) [#/Vol] Abs Brown 0.35 K/UL (0-0.8 K/UL) 0 - 0.8 K/UL [facility] Monocytes/100 WBC (Bld) Monocyte 11.90 % H (0-8 %) High 0 - 8 % [facility] Neutrophils (Bld) [#/Vol] Abs.Neut.Calculated 1.74 K/UL (Reference Range: not available) Performed at [address] [address] [facility] Neutrophils (Bld) [#/Vol] Abs Neut 1.74 K/UL L (1.8-7.7 K/UL) Low 1.8 - 7.7 K/UL [facility] Neutrophils.immature/ 100 WBC (Bld) Immature Neut % 0.70 % (0.0-1.0 %) 0.0 - 1.0 % [facility] Nucleated RBC/100 WBC (Bld) [Ratio] NRBCs 0 /100 WBC (0 /100 WBC) [facility] Platelet mean volume (Bld) [Entitic vol] MPV 11.4 CU (7.0-12.6 CU) 7.0 - 12.6 CU [facility] Platelets (Bld) [#/Vol] PLT 177 K/UL (150-450 K/UL) 150 - 450 K/UL [facility] RBC (Bld) [#/Vol] RBC 4.87 M/UL (4.5-5 .5 M/UL) 4.5 - 5.5 M/UL [facility] Segmented neutrophils/100 WBC (Bld) Granulocyte 59.00 % (50-70 %) 50 - 70 % [facility] WBC (Bld) [#/Vol] WBC 3.0 K/UL L (4.5- 11.0 K/UL) Low 4.5 - 11.0 K/UL [facility] No Panel Informationon 03-22 HS Troponin T Delta 0 (0-4 ) Performed at [address] [address] 0 - 4 [facility] XR Chest Portable (1view) (Reference Range: not available) *FINAL Date of Service: 03/22/2021 04:53 Adm #: [id number] Reading Dr:FAITH PACK Signoff Dr: FAITH PACK PROCEDURE: CHEST PORTABLE - WXR 0018 REASON FOR EXAM: Chest Pain RESULT: CLINICAL HISTORY: Chest pain/Covid positive/smoker/hyperten jayy COMPARISON: 03/17/2021 FINDINGS: The cardiomediastinal silhouette is stable. The lungs are clear. No pleural effusion is identified. The osseous structures are intact. IMPRESSION: No acute cardiopulmonary process. [id number] This report has been produced using speech recognition. Original Interpreting Physician: FAITH PACK MD Original Transcribed [facility]/Date[facility] Mar 22 2021 8:00A Original Electronically Signed by/Date: FAITH PACK MD Mar 22 2021 8:00A Addendum Interpreting Physician: Addendum Transcribed by/Date: NO ADDENDUM Addendum Electronically Signed by/Date: [facility] HS Troponin T Delta 0 (0-4 ) Performed at [address] [address] 0 - 4 [facility] EKG (Reference Range : not available) Ventricular Rate : 78 BPM Atrial Rate : 78 BPM P-R Interval : 178 ms QRS Duration : 100 ms Q-T Interval : 362 ms QTC Calculation(Bazett) : 412 ms Calculated P Wren : 34 degrees Calculated R Wren : -15 degrees Calculated T Wren : 15 degrees Diagnosis: Poor data quality, interpretation may be adversely affected Normal sinus rhythm Normal ECG When compared with ECG of 17-MAR-2021 19:42, No significant change was found Confirmed by CHERYL CULLEN ([id number]) on 03/22/2021 1:51:20 PM See also the report from this date [facility] Laboratory - Chemistry and C hemistry - challengeon 03-18-2021 Albumin [Mass/Vol] Albumin 3.7 GM/DL (3.5-5.0 GM/DL) 3.5 - 5.0 GM/DL [facility] Albumin/Globulin [Mass ratio] Albumin Globulin Ratio 1.5 RATIO (1.5-3.0 RATIO) Performed at [address] [address] 1.5 - 3.0 RATIO [facility] ALP (Bld) [Catalytic activity/Vol] Alk Phosphatase 52 U/L (35-125 U/L) 35 - 125 U/L [facility] ALT [Catalytic activity/Vol] ALT 18 U/L (5-40 U/L) 5 - 40 U/L [facility] AST [Catalytic activity/Vol] AST 20 U/L (5-40 U/L) 5 - 40 U/L [facility] Bilirubin [Mass/Vol] Total Bilirubin 0.2 MG/DL (0.1-1.2 MG/DL) 0.1 - 1.2 MG/DL [facility] Bilirubin.direct [Mass/Vol] Direct Bilirubin 0.2 MG/DL (0.0-0.2 MG/DL) LESS THAN 0.0 - 0.2 MG/DL [facility] Bilirubin.indirect [Mass/Vol] Indirect Bilirubin 0.0 MG/DL (0-0.8 MG/DL) 0 - 0.8 MG/DL [facility] Globulin (S) [Mass/Vol] Globulin 2.4 G/DL (1.9-3.7 G/DL) 1.9 - 3.7 G/DL [facility] Lactate (BldV) [Moles/Vol] Lactic Acid (Venous) 1.3 MMOL/L (0.9-1.7 MMOL/L) Performed at [address] [address] 0.9 - 1.7 MMOL/L [facility] Protein [Mass/Vol] Total Protein 6.1 G/ DL (5.9-7.9 G/DL) 5.9 - 7.9 G/DL [facility] Bilirubin [Mass/Vol] Total Bilirubin 0.2 MG/DL (0.1-1.2 MG/DL) Performed at [address] [address] 0.1 - 1.2 MG/DL [facility] Lactate (BldV) [Moles/Vol] Lactic Acid (Venous) 1.0 MMOL/L (0.9-1.7 MMOL/L) Performed at [address] [address] 0.9 - 1.7 MMOL/L [facility] Troponin T.cardiac [Mass/Vol] HS Troponin T,Gen 5 [...] until 8 hours following last biotin administration. [facility] Laboratory - Hematology and Cell countson 03-18-2021 Basophils (Bld) [#/Vol] Abs Baso 0.02 K/UL (0.00-0.22 K/UL) 0.00 - 0.22 K/UL [employer] Basophils/100 WBC (Bld) Basophil 0.50 % (0-1 %) 0 - 1 % [facility] Differential cell count method Nom (Bld) Diff Type AUTO DIFF (Reference Range: not available) [facility] Eosinophils (Bld) [#/Vol] Abs Eos 0.07 K/UL (0-0.45 K/UL) 0 - 0.45 K/UL [facility] Eosinophils/100 WBC (Bld) Eosinophil 1.90 % (0-3 %) 0 - 3 % [facility] Erythrocyte distribution width (RBC) [Entitic vol] RDW SD 39.4 FL (37.0-54.0 FL) 37.0 - 54.0 FL [facility] Erythrocyte distribution width (RBC) [Ratio] RDW CV 12.6 % (11.7-15.0 %) 11.7 - 15.0 % [employer] Hematocrit (Bld) [Volume fraction] HCT 36.2 % L (41-50 %) Low 41 - 50 % [facility] Hemoglobin (Bld) [Mass/Vol] HGB 11.5 GM/DL L (13.5-16.5 GM/DL) Low 13.5 - 16.5 GM/DL [facility] Immature granulocytes (Bld) [#/Vol] Abs Imm Neut 0.01 K/UL (0.0-0.1 K/UL) 0.0 - 0.1 K/UL [facility] Lymphocytes (Bld) [#/Vol] Abs Lymph 1.03 K/UL L (1.2-3.2 K/UL) Low 1.2 - 3.2 K/UL [facility] Lymphocytes/100 WBC (Bld) Lymphocyte 27.80 % (20-40 %) 20 - 40 % S MCH (RBC) [Entitic mass] MCH 27.4 PG (26-34 PG) 26 - 34 PG S MCHC (RBC) [Mass/Vol] MCHC 31.8 % (31-37 %) 31 - 37 % S MCV (RBC) [Entitic vol] MCV 86.4 FL (80-100 FL) 80 - 100 FL S Monocytes (Bld) [#/Vol] Abs Brown 0.45 K/UL (0-0.8 K/UL) 0 - 0.8 K/UL [facility] Monocytes/100 WBC (Bld) Monocyte 12.10 % H (0-8 %) High 0 - 8 % [facility] Neutrophils (Bld) [#/Vol] Abs.Neut.Calculated 2.13 K/UL (Reference Range: not available) Performed at [address] [address] [facility] Neutrophils (Bld) [#/Vol] Abs Neut 2.13 K/UL (1.8-7.7 K/UL) 1.8 - 7.7 K/UL [facility] Neutrophils.immature/ 100 WBC (Bld) Immature Neut % 0.30 % (0.0-1.0 %) 0.0 - 1.0 % [facility] Nucleated RBC/100 WBC (Bld) [Ratio] NRBCs 0 /100 WBC (0 /100 WBC) [facility] Platelet mean volume (Bld) [Entitic vol] MPV 10.9 CU (7.0-12.6 CU) 7.0 - 12.6 CU [facility] Platelets (Bld) [#/Vol] PLT 141 K/UL L [...] T Delta 0 (0-4 ) Performed at [address] [address] [facility] Office Visit (Internal Medic ine)on 03-15-2021 Follow-up [...] disease); Ordered By: Viral Amado Performed: Due: [id number] Essential hypertension, Renal artery stenosis Renew: Losartan Potassium 50 MG Oral Tablet; TAKE 1 TABLET DAILY Rx By: Viral Amado; Dispense: 30 Days ; #:30 Tablet; Refill: 1;For: Essential hypertension, Renal artery stenosis; JOSE = N; Sent To: [id number] Health Maintenance Osteopathic Manipulation Treatment Evaluation and Treatment Evaluate AND Treat Status: Hold For - Scheduling Requested for: [id number] Ordered;For: Health Maintenance; Ordered By: Viral Amado Performed: Due: [id number] Pancytopenia Benign Hematology Referral Evaluation and Treatment Evaluate AND Treat Status: Hold For - Scheduling Requested for: [id number] Ordered;For: Pancytopenia; Ordered By: Viral Amado Performed: Due: [id number] o Renal artery stenosis Nephrology Referral Evaluation and Treatment Evaluate AND Treat Status: Hold For - Scheduling Requested for: [id number] Ordered;For: Renal artery stenosis; Ordered By: Viral Amado Performed: Due: [id number] Provider Impressions Patient is a 50-year-old male [...] delivered by entirely different geographical areas in [place] (which is unusual). Of note he has been to multiple ERs including the [place] emergency room [facility] emergency room GI.emergency room [facility] emergency room for similar complaints and similar [...] 30-day medical note to provide to the aids social worker team in [facility] in order to get services Explained that we cannot provide letters simply to obtain aids social worker Patient is to follow-up with gastroenterology for his upper endoscopy If there is a reasonable medical needed for 30 days off of work such a letter can be written Cardiac etiology has been ruled out Referral for OMM Please have your physicians in [place] provide all necessary documents regarding her care [...] He curren (more content not included)... Normal [employer] Tobacco Screening.on 021 Fall risk assessment a) No falls within the last year [employer] Phone: Tobacco use status CPHS a) Yes [employer] Phone: Complete Blood Count + Diffe rentialon 03-14-2021 Basophils/100 WBC (Bld) 0.7 % 0.0 - 2.0 [employer] Phone: Erythrocyte distribution width (RBC) [Ratio] 12.8 % See Below [employer] Phone: Comment on above: Reference Range: 11. 5 - 14.5 Hematocrit (Bld) [Volume fraction] 39.5 % below low threshold See Below [employer] Phone: Comment on above: Reference Range: 41. 0 - 52.0 Hemoglobin (Bld) [Mass/Vol] 13.7 g/dL See Below [employer] Phone: Comment on above: Reference Range: 13. 5 - 17.5 Lymphocytes/100 WBC (Bld) 26.1 % See Below [facility] [employer] Work Phone: [phone] Comment on above: Reference Range: 13. 0 - 44.0 MCHC (RBC) [Mass/Vol] 34.7 g/dL See Below [facility] [employer] Work Phone: [phone] Comment on above: Reference Range: 32. 0 - 36.0 MCV (RBC) [Entitic vol] 83 fL 80 - 100 [facility] [employer] Work Phone: [phone] Monocytes/100 WBC (Bld) 10.7 % 2.0 - 10.0 [facility] [employer] Work Phone: [phone] Neutrophils/100 WBC (Bld) 60.9 % See Below [facility] [employer] Phone: [phone] Comment on above: Reference Range: 40. 0 - 80.0 Platelets (Bld) [#/Vol] 153 10*3/uL 150 - 450 [facility] [employer] Work Phone: [phone] RBC (Bld) [#/Vol] 4.75 {x10E12/L} See Below [facility] [employer] Work Phone: [phone] Comment on above: Reference Range: 4.5 0 - 5.90 WBC (Bld) [#/Vol] 4.4 10*3/uL 4.4 - 11.3 [facility] [employer] Work Phone: [phone] Complete Blood Count + Differential 0.03 {x10E9/L} See Below [facility] [employer] Work Phone: [phone] Comment on above: Reference Range: 0.0 0 - 0.10 Complete Blood Count + Differential 0.06 {x10E9/L} See Below [facility] [employer] Work Phone: Comment on above: Reference Range: 0.0 0 - 0.70 Complete Blood Count + Differential 0.47 {x10E9/L} See Below [facility] [employer] Phone: Comment on above: Reference Range: 0.1 0 - 1.00 Complete Blood Count + Differential 1.15 {x10E9/L} below low threshold See Below [employer] Phone: Comment on above: Reference Range: 1.2 0 - 4.80 Complete Blood Count + Differential 2.68 {x10E9/L} See Below [facility] [employer] Phone: Comment on above: Reference Range: 1.2 0 - 7.70 Complete Blood Count + Differential 1.4 % 0.0 - 6.0 [facility] [employer] Phone: Complete Blood Count + Differential 0.2 % 0.0 - 0.9 [facility] [employer] Phone: Comment on above: Immature Granulocyte Count (IG) includes promyelocytes, myelocytes and metamyelocytes but does not include bands. Percent differential counts (%) should be interpreted in the context of the absolute cell counts (cells/L). Complete Blood Count + Differential 0.0 {/100_WBC} 0.0-0.0 [facility] [employer] Phone: Laboratory - Chemistry and C hemistry - challengeon 03-14-2021 Albumin BCP dye [Mass/Vol] 4.4 g/dL 3.4 - 5.0 [facility] [employer] Phone: ALP [Catalytic activity/Vol] 54 U/L 33 - 120 [facility] [employer] Phone: ALT With P-5'-P [Catalytic activity/Vol] 20 U/L 10 - 52 [facility] [employer] Phone: Comment on above: Patients treated wit h Sulfasalazine may generate falsely decreased results for ALT. Anion gap [Moles/Vol] 12 mmol/L 10 - 20 [facility] [employer] Work Phone: AST With P-5'-P [Catalytic activity/Vol] 19 U/L 9 - 39 [facility] [employer] Phone: Bilirubin [Mass/Vol] 0.5 mg/dL 0.0 - 1.2 [facility] [employer] Work Phone: Calcium [Mass/Vol] 9.8 mg/dL 8.6 - 10.6 [facility] [employer] Work Phone: Chloride [Moles/Vol] 103 mmol/L 98 - 107 [facility] [employer] Work Phone: CO2 [Moles/Vol] 28 mmol/L 21 - 32 [facility] [employer] Work Phone: Creatinine [Mass/Vol] 0.87 mg/dL See Below [facility] [employer] Work Phone: Comment on above: Reference Range: 0.5 0 - 1.30 Glucose [Mass/Vol] 73 mg/dL below low threshold 74 - 99 [facility] [employer] Work Phone: Potassium [Moles/Vol] 3.9 mmol/L 3.5 - 5.3 [facility] [employer] Phone: Protein [Mass/Vol] 7.3 g/dL 6.4 - 8.2 [facility] [employer] Work Phone: Sodium [Moles/Vol] 139 mmol/L 136 - 145 [facility] [employer] Work Phone: Urea nitrogen [Mass/Vol] 12 mg/dL 6 - 23 [facility] [employer] Phone: MRI Cardiac w/wo contrast fo r Morph/Funct and Valve Dzon 03-14-2021 MRI Cardiac w/wo contrast for Morph/Funct and Valve Dz [facility] [employer] Work Phone: MRI Cardiac w/wo contrast wi th Regadenoson stress for Morph/Funct and Valve Dzon 03-14-2021 MRI Cardiac w/wo contrast with Regadenoson stress for Morph/Funct and Valve Dz Please click on the link to view the study images [facility] [employer] Phone: No Panel Informationon 03-14 11 pg/mL 0 - 99 [facility] [employer] Phone: Comment on above: . <100 pg/mL - Heart failure [id number] pg/mL - Intermediate probability of acute heart. [...] local laboratory for further information. >60 >60 [facility] [employer] Work Phone: Comment on above: CALCULATIONS OF NIKOLE MATED GFR ARE PERFORMED USING THE MDRD STUDY EQUATION FOR THE IDMS-TRACEABLE CREATININE METHODS. CLIN CHEM 2007;53:766-72 [email or web address]?RetrieveTestByDateTim e?EupqwflLZ=[id number]&Da te=14-03-2021&Time=17%3a 27%3a08%3a00&TestType=EC G&Site=1&OutputType=PDF& Ext=PDF [facility] [employer] Work Phone: Please see ED Provid er Note for formal interpretation [facility] [employer] Work Phone: Normal [facility] [employer] Work Phone: [phone] [facility] [employer] Work Phone: [phone] [facility] [employer] Work Phone: [phone] [facility] [employer] Work Phone: [phone] [facility] [employer] Work Phone: [phone] [facility] [employer] Work Phone: [phone] [facility] [employer] Work Phone: [phone] [facility] [employer] Work Phone: [phone] [facility] [employer] Work Phone: [phone] [facility] [employer] Work Phone: [phone] [facility] [employer] Work Phone: [phone] [facility] [employer] Work Phone: [phone] [facility] [employer] Work Phone: [phone] [facility] [employer] Work Phone: [phone] [facility] [employer] Work Phone: [email or web address]?RetrieveTestByDateTim e?PkplwumNU=[id number]&Da te=14-03-2021&Time=13%3a 38%3a10%3a00&TestType=EC G&Site=1&OutputType=PDF& Ext=PDF [facility] [facility] [employer] Work Phone: Please see ED Provid er Note for formal interpretation [facility] [employer] Work Phone: Normal [facility] [employer] Work Phone: [phone] [facility] [employer] Work Phone: [phone] [facility] [employer] Work Phone: [phone] [facility] [employer] Work Phone: 127 1 [facility] [employer] Work Phone: [phone] 1 [facility] [employer] Work Phone: 13 1 [facility] [employer] Work Phone: 21 1 [facility] [employer] Work Phone: -[phone] 1 [facility] [employer] Work Phone: 43 1 [facility] [employer] Work Phone: [phone] [facility] [employer] Work Phone: [phone] [facility] [employer] Work Phone: 98 1 [facility] [employer] Work Phone: 164 1 [facility] [employer] Work Phone: 80 1 [facility] [employer] Work Phone: Radiologyon 03-14-2021 XR Chest Single view Normal [facility] [employer] Work Phone: Troponin I, Serumon 03-14-20 21 Troponin I.cardiac [Mass/Vol] ng/mL See Below [facility] [employer] Work Phone: Comment on above: Reference Range: [...] is performed using different testing methodology at [facility] than at other [facility] [place] [facility]. Direct result comparisons should only be made within the same method.. Biotin interference may cause falsely decreased results. Patients taking a Biotin dose of up to 5 mg/day should refrain from taking Biotin for 24 hours before sample collection. Providers may contact their laboratory for further information. URINALYSIS WITH CULTURE IF I NDICATEDon 03-14-2021 Color (U) YELLOW See Below [facility] [employer] Work Phone: Comment on above: Reference Range: STR AW,YELLOW Glucose Ql (U) Negative NEGATIVE [facility] Work Phone: Ketones Ql (U) Negative NEGATIVE [facility] [employer] Phone: Leukocyte esterase Test strip Ql (U) Negative NEGATIVE [facility] [employer] Phone: pH (U) 5.0 [pH] 5.0 - 8.0 [facility] [employer] Phone: Protein (U) [Mass/Vol] Negative NEGATIVE [facility] Work Phone: RBC (U) [#/Vol] Negative NEGATIVE [facility] [employer] Work Phone: Specific gravity (U) [Rel density] 1.012 1 See Below [facility] [employer] Phone: Comment on above: Reference Range: 1.0 05 - 1.035 URINALYSIS WITH CULTURE IF INDICATED Negative NEGATIVE [facility] [employer] Phone: URINALYSIS WITH CULTURE IF INDICATED <2.0 0.0 - 1.9 [facility] [employer] Phone: URINALYSIS WITH CULTURE IF INDICATED CLEAR CLEAR [facility] [employer] Work Phone: BASIC METABOLIC PANELon 02-21 Anion gap [Moles/Vol] 13 mmol/L Normal 10 - 20 [facility] Comment on above: Performed By: #### B MP #### [facility] [address] [facility] [place] [address] Calcium [Mass/Vol] 9.0 mg/dL Normal 8.6 - 10.3 [facility] Comment on above: Performed By: #### B MP #### [facility] [address] [place] [address] Chloride [Moles/Vol] 100 mmol/L Normal 98 - 107 [facility] Comment on above: Performed By: #### B MP #### [facility] [address] [place] [address] Creatinine [Mass/Vol] 0.96 mg/dL Normal 0.50 - 1.30 [facility] Comment on above: Performed By: #### B MP #### [facility] [address] [place] [address] GFR- AM. >60 Normal >60 [facility] Comment on above: Result Comment: CALC ULATIONS OF ESTIMATED GFR ARE PERFORMED USING THE MDRD STUDY EQUATION FOR THE IDMS-TRACEABLE CREATININE METHODS. CLIN CHEM 2007;53:766-72 Performed By: #### B MP #### [facility] [address] [place] [address] GFR-NON AM. >60 Normal >60 [facility] Comment on above: Performed By: #### B MP #### [facility] [address] [place] [address] Glucose [Mass/Vol] 108 mg/dL High 74 - 99 [facility] Comment on above: Performed By: #### B MP #### [facility] [address] [place] [address] HCO3 (Bld) [Moles/Vol] 28 mmol/L Normal 21 - 32 [facility] Comment on above: Performed By: #### B MP #### [facility] [address] [place] [address] Potassium [Moles/Vol] 3.6 mmol/L Normal 3.5 - 5.3 [facility] Comment on above: Performed By: #### B MP #### [facility] [address] [facility] [place] [address] Sodium [Moles/Vol] 137 mmol/L Normal 136 - 145 [facility] Comment on above: Performed By: #### B MP #### [facility] [address] [place] [address] Urea nitrogen [Mass/Vol] 12 mg/dL Normal 6 - 23 [facility] Comment on above: Performed By: #### B MP #### [facility] [address] [place] [address] CBC AND DIFFERENTIALon 03-02 % AUTOMATED IMMATURE GRAN 0.9 % Normal 0.0 - 0.9 [facility] Comment on above: Result Comment: Kath ture Granulocyte Count (IG) includes promyelocytes, myelocytes and metamyelocytes but does not include bands. Percent differential counts (%) should be interpreted in the context of the absolute cell counts (cells/L). Performed By: #### T ROP2 #### [facility] [id number] [place] [address] Basophils (Bld) [#/Vol] 0.01 10*3/uL Normal 0.00 - 0.10 [facility] Comment on above: Performed By: #### T ROP2 #### [facility] [address] [place] [address] Basophils/100 WBC (Bld) 0.3 % Normal 0.0 - 2.0 [facility] Comment on above: Performed By: #### T ROP2 #### [facility] [address] [place] [address] Eosinophils (Bld) [#/Vol] 0.02 10*3/uL Normal 0.00 - 0.70 [facility] Comment on above: Performed By: #### T ROP2 #### [facility] [address] [place] [address] Eosinophils/100 WBC (Bld) 0.6 % Normal 0.0 - 6.0 [facility] Comment on above: Performed By: #### T ROP2 #### [facility] [address] [facility] [place] [address] Erythrocyte distribution width (RBC) [Ratio] 12.8 % Normal 11.5 - 14.5 [facility] Comment on above: Performed By: #### T ROP2 #### [facility] [address] [place] [address] Hematocrit (Bld) [Volume fraction] 37.3 % Low 41.0 - 52.0 [facility] Comment on above: Performed By: #### T ROP2 #### [facility] [id number] [place] [address] [place] [address] Hemoglobin (Bld) [Mass/Vol] 12.5 g/dL Low 13.5 - 17.5 [facility] Comment on above: Performed By: #### T ROP2 #### [facility] [id number] [place] [address] [place] [address] Lymphocytes (Bld) [#/Vol] 0.71 10*3/uL Low 1.20 - 4.80 [facility] Comment on above: Performed By: #### T ROP2 #### [facility] [id number] [place] [address] [place] [address] Lymphocytes/100 WBC (Bld) 21.0 % Normal 13.0 - 44.0 [facility] Comment on above: Performed By: #### T ROP2 #### [facility] [id number] [place] [address] [place] [address] MCHC (RBC) [Mass/Vol] 33.5 g/dL Normal 32.0 - 36.0 [facility] Comment on above: Performed By: #### T ROP2 #### [facility] [id number] [place] [address] [place] [address] MCV (RBC) [Entitic vol] 85 fL Normal 80 - 100 [facility] Comment on above: Performed By: #### T ROP2 #### [facility] [id number] [place] [address] Monocytes (Bld) [#/Vol] 0.32 10*3/uL Normal 0.10 - 1.00 [facility] Comment on above: Performed By: #### T ROP2 #### [facility] [address] [place] [address] Monocytes/100 WBC (Bld) 9.5 % Normal 2.0 - 10.0 [facility] Comment on above: Performed By: #### T ROP2 #### [facility] [address] [place] [address] Neutrophils (Bld) [#/Vol] 2.29 10*3/uL Normal 1.20 - 7.70 [facility] Comment on above: Performed By: #### T ROP2 #### [facility] [address] [place] [address] Neutrophils/100 WBC (Bld) 67.7 % Normal 40.0 - 80.0 [facility] Comment on above: Performed By: #### T ROP2 #### [facility] [id number] [place] [address] Platelets (Bld) [#/Vol] 143 10*3/uL Low 150 - 450 [facility] Comment on above: Performed By: #### T ROP2 #### [facility] [id number] [place] [address] RBC 4.39 x10E12/L Low 4.50 - 5.90 [facility] Comment on above: Performed By: #### T ROP2 #### [facility] [id number] [place] [address] WBC (Bld) [#/Vol] 3.4 10*3/uL Low 4.4 - 11.3 [facility] Comment on above: Performed By: #### T ROP2 #### [facility] [id number] [place] [address] CHEST 1 VIEWon 03-02-2021 CHEST 1 VIEW STUDY: Chest Radiograph; 03/02/2021 and 07:05 AM INDICATION: Thickness in throat feels like liquids get backed up. COMPARISON: 02/28/2021 XR Chest. ACCESSION NUMBER(S): [id number] ORDERING CLINICIAN: TERRY GARCÍA MD TECHNIQUE: Frontal chest was obtained at 08:38 hours. FINDINGS: CARDIOMEDIASTINAL SILHOUETTE: Cardiomediastinal silhouette is normal in size and configuration. LUNGS: Lungs are clear. ABDOMEN: No remarkable upper abdominal findings. BONES: No acute osseous changes. IMPRESSION: No acute cardiopulmonary abnormality. Signed by Karson White MD Electronically signed by: KARSON WHITE MD Normal [facility] Complete Blood Count + Diffe ubaldo 03-02-2021 Basophils/100 WBC (Bld) 0.3 % 0.0 - 2.0 [facility] Work Phone: Erythrocyte distribution width (RBC) [Ratio] 12.8 % See Below [facility] [employer] Phone: Comment on above: Reference Range: 11. 5 - 14.5 Hematocrit (Bld) [Volume fraction] 37.3 % below low threshold See Below [facility] [employer] Phone: Comment on above: Reference Range: 41. 0 - 52.0 Hemoglobin (Bld) [Mass/Vol] 12.5 g/dL below low threshold See Below [facility] [employer] Phone: Comment on above: Reference Range: 13. 5 - 17.5 Lymphocytes/100 WBC (Bld) 21.0 % See Below [facility] [employer] Phone: Comment on above: Reference Range: 13. 0 - 44.0 MCHC (RBC) [Mass/Vol] 33.5 g/dL See Below [facility] [employer] Work Phone: Comment on above: Reference Range: 32. 0 - 36.0 MCV (RBC) [Entitic vol] 85 fL 80 - 100 [facility] [employer] Phone: Monocytes/100 WBC (Bld) 9.5 % 2.0 - 10.0 [facility] [employer] Phone: Neutrophils/100 WBC (Bld) 67.7 % See Below [facility] [employer] Phone: Comment on above: Reference Range: 40. 0 - 80.0 Platelets (Bld) [#/Vol] 143 10*3/uL below low threshold 150 - 450 [employer] Phone: RBC (Bld) [#/Vol] 4.39 {x10E12/L} below low threshold See Below [facility] [employer] Phone: Comment on above: Reference Range: 4.5 0 - 5.90 WBC (Bld) [#/Vol] 3.4 10*3/uL below low threshold 4.4 - 11.3 [facility] [employer] Phone: [phone] Complete Blood Count + Differential 0.01 {x10E9/L} See Below [facility] [employer] Phone: Comment on above: Reference Range: 0.0 0 - 0.10 Complete Blood Count + Differential 0.02 {x10E9/L} See Below [facility] [employer] Phone: Comment on above: Reference Range: 0.0 0 - 0.70 Complete Blood Count + Differential 0.32 {x10E9/L} See Below [facility] [employer] Phone: Comment on above: Reference Range: 0.1 0 - 1.00 Complete Blood Count + Differential 0.71 {x10E9/L} below low threshold See Below [employer] Phone: Comment on above: Reference Range: 1.2 0 - 4.80 Complete Blood Count + Differential 2.29 {x10E9/L} See Below [facility] Phone: Comment on above: Reference Range: 1.2 0 - 7.70 Complete Blood Count + Differential 0.6 % 0.0 - 6.0 [facility] Phone: Complete Blood Count + Differential 0.9 % 0.0 - 0.9 [facility] [employer] Phone: Comment on above: Immature Granulocyte Count (IG) includes promyelocytes, myelocytes and metamyelocytes but does not include bands. Percent differential counts (%) should be interpreted in the context of the absolute cell counts (cells/L). Laboratory - Chemistry and C hemistry - challengeon 03-02-2021 Anion gap [Moles/Vol] 13 mmol/L 10 - 20 [facility] Work Phone: Calcium [Mass/Vol] 9.0 mg/dL 8.6 - 10.3 [facility] [facility] Work Phone: Chloride [Moles/Vol] 100 mmol/L 98 - 107 [facility] [employer] Work Phone: CO2 [Moles/Vol] 28 mmol/L 21 - 32 [facility] [employer] Work Phone: Creatinine [Mass/Vol] 0.96 mg/dL See Below [facility] Work Phone: Comment on above: Reference Range: 0.5 0 - 1.30 Glucose [Mass/Vol] 108 mg/dL above high threshold 74 - 99 [facility] Work Phone: Potassium [Moles/Vol] 3.6 mmol/L 3.5 - 5.3 [facility] Work Phone: Sodium [Moles/Vol] 137 mmol/L 136 - 145 [facility] Work Phone: Urea nitrogen [Mass/Vol] 12 mg/dL 6 - 23 [facility] Work Phone: No Panel Informationon 03-02 >60 >60 [facility] [facility] Work Phone: Comment on above: CALCULATIONS OF [...] the emergency department through the , the [facility] and [facility] multiple times over the past few weeks. He has had x-rays and CT scans and blood work. He is scheduled for an endoscopy at [facility] tomorrow with Dr. Johs Werner. He has no new symptoms today necessarily. He recently resided in [place]. He states that he cannot go back to [place] due to some issues with a significant other who is bipolar. He states that he is applying for [place] insurance but it will be a month [...] No ST segment elevation concerning for acute AL. EKG appears very similar to the patient's [...] symptoms with negative work-ups. I got our social media intern involved who interacted with the patient on [...] was provided with multiple resources by our social media intern. He is connected with GI services. I [...] Other A (more content not included)... Normal [facility] Radiologyon 03-02-2021 XR Chest Single view Normal [facility] [employer] Work Phone: Risk Screen - Adult [...] instruction; written material Cultural Considerationsnone Developmental Considerationsnone Presybeterian Considerationsnone Learning Assessment (Other Learner): Learning Assessment (Other Learner): Other learner availableno Pressure Injury/TB/Substance: Pressure Injury: Do you have a coughno Substance Use Current or Former Historynever: Cigarette/Tobacco, e-Cigarette/Vaping, Street Drugs YES: Alcohol Alcohol Usedaily Alcohol Use Additional Commentsa beer/ day Admission Risk Screen: Significant IndicatorsComplete CAGE: CAGE: Is this an injured patient at a Trauma Center ([facility]/[place] /[place]): no Electronic Signatures: Bal Martinez (BROOK[place]NN) (Signed 02-Mar-2021 07:36) Authored: Preferred Language, Advanced Directives, Family Violence Adult, Learning Assessment (Patient), Learning Assessment (Other Learner), Pressure Injury/TB/Substance, Pressure Injury, CAGE Last Updated: 02-Mar-2021 07:36 by Bal Martinez (RN) Normal [facility] TROPONIN Ion 03-02-2021 Troponin I.cardiac [Mass/Vol] ng/mL Normal 0.00 - 0.03 [facility] Comment on above: Result [...] is performed using different testing methodology at [facility] than at other [facility] [place] [facility]. Direct result comparisons should only be made within the same method. Performed By: #### T ROP2 #### [facility] [address] [place] [address] Troponin I.cardiac [Mass/Vol] ng/mL Normal 0.00 - 0.03 [facility] Comment on above: Result [...] is performed using different testing methodology at [facility] than at other [facility] [place] [facility]. Direct result comparisons should only be made within the same method. Performed By: #### T ROP2 #### [facility] [address] [place] [address] Triage - EDon 03-02-2021 Triage - ED [...] Accompanied By: self Language: Spoken Language Preferred: Scottish CHIEF COMPLAINT HOSEA ALVAREZ is a Male [...] 02-Mar-2021 07:35 by Bal Martinez (BROOKLYNN) Normal [facility] Troponin I, Serumon 03-02-20 21 Troponin I.cardiac [Mass/Vol] ng/mL See Below [employer] Work Phone: Comment on above: Reference Range: [...] is performed using different testing methodology at [facility] than at other [facility] [place] [facility]. Direct result comparisons should only be made within the same method. Troponin I.cardiac [Mass/Vol] ng/mL See Below [facility] [employer] Phone: Comment on above: Reference Range: 0.0 [...] is performed using different testing methodology at [facility] than at other [facility] [place] [facility]. Direct result comparisons should only be made within the same method. CHEST 1 VIEWon 02-28-2021 CHEST 1 VIEW STUDY: Chest Radiograph; [02/28/2021 11:25] INDICATION: Right sided chest discomfort. COMPARISON: 02/27/2021 XR Chest. ACCESSION NUMBER(S): [id number] ORDERING CLINICIAN: BAL LOMAX MD, MPH TECHNIQUE: Frontal chest was obtained at 11:14 hours. FINDINGS: CARDIOMEDIASTINAL SILHOUETTE: Cardiomediastinal silhouette is normal in size and configuration. LUNGS: Lungs are clear. ABDOMEN: No remarkable upper abdominal findings. BONES: No acute osseous changes. IMPRESSION: No acute cardiopulmonary abnormality. Signed by Karson White MD Electronically signed by: KARSON WHITE MD Normal [facility] Chart Updateon 02-28-2021 Chart Update [...] back personally. Patient called, he went to [facility] (02/27/21) and tells me they almost admitted him to do an Echo or KENNETH but told him he had to coordinate the testing with his expressive art therapist. Hosea has called several times asking for an Echo and Dr. Lawton has told him he does not need an Echo at this time. He needs the ordered testing (Stress MRI scheduled for 03/14/[address] [facility] and the Holter monitor done on 02/21/21), [...] having a G.I. scope this week. To [facility] for review. ---ssd. I called and answered [...] Screening Asymptomtic Not detected Normal See Below -[facility] Work Phone: Comment on above: SOURCE: Nasal, [...] make patient management decisions.Fact sheet for providers: https://www.fda.gov/media/486067/downloadFact sheet for patients: https://www.fda.gov/media/082621/downloadThis test has received FDA Emergency Use Authorization (EUA) and has been verified by [facility] ([facility]). This test is only authorized for the duration of time that circumstances exist to justify the authorization of the emergency use of in vitro diagnostic tests for the detection of SARS-CoV-2 virus and/or diagnosis of COVID-19 infection under section 564(b)(1) of the Act, 21 U.S.C. 360bbb-3(b)(1), unless the authorization is terminated or revoked sooner. [facility] is certified under CLIA-88 as qualified to perform high complexity testing. Testing is performed in the [facility] laboratories located at [address] [place] [address]. No Panel Informationon 02-28 [email or web address]?RetrieveTestByDateTim e?DqlqoatNP=[id number]&Da te=04-28-2021&Time=10%3a 49%3a37%3a00&TestType=EC G&Site=7&OutputType=PDF& Ext=PDF [address] [...] [address] [facility] [address] Work Phone: [phone] [facility] [...] Within the past few days between the [facility] the patient is been seen 5 times. [...] OUTPATIENT MEDICATI (more content not included)... Normal [facility] Radiologyon 02-28-2021 XR Chest Single view Normal [facility] Work Phone: Triage - EDon 02-28-2021 Triage [...] 28-Feb-2021 10:57 by Josh Morfin (RN) Normal [facility] BASIC METABOLIC PANELon 06-0 Anion gap [Moles/Vol] 12 mmol/L Normal 10 - 20 [facility] Comment on above: Performed By: #### B MP ####[facility] [place] [address] Calcium [Mass/Vol] 9.1 mg/dL Normal 8.6 - 10.3 [facility] Comment on above: Performed By: #### B MP ####[facility] [place] [address] Chloride [Moles/Vol] 102 mmol/L Normal 98 - 107 [facility] Comment on above: Performed By: #### B MP ####[facility] [place] [address] Creatinine [Mass/Vol] 0.87 mg/dL Normal 0.50 - 1.30 [facility] Comment on above: Performed By: #### B MP ####[facility] [place] [address] GFR- AM. >60 Normal >60 [facility] Comment on above: Result Comment: CALC ULATIONS OF ESTIMATED GFR ARE PERFORMED USING THE MDRD STUDY EQUATION FOR THE IDMS-TRACEABLE CREATININE METHODS. CLIN CHEM 2007;53:766-72 Performed By: #### B MP ####[facility] [place] [address] GFR-NON AM. >60 Normal >60 [facility] Comment on above: Performed By: #### B MP ####[facility] [place] [address] Glucose [Mass/Vol] 147 mg/dL High 74 - 99 [facility] Comment on above: Performed By: #### B MP ####[facility] [place] [address] HCO3 (Bld) [Moles/Vol] 26 mmol/L Normal 21 - 32 [facility] Comment on above: Performed By: #### B MP ####[facility] [place] [address] Potassium [Moles/Vol] 4.0 mmol/L Normal 3.5 - 5.3 [facility] Comment on above: Performed By: #### B MP ####[facility] [place] [address] Sodium [Moles/Vol] 136 mmol/L Normal 136 - 145 [facility] Comment on above: Performed By: #### B MP ####[facility] [place] [address] Urea nitrogen [Mass/Vol] 14 mg/dL Normal 6 - 23 [facility] Comment on above: Performed By: #### B MP ####[place] [id number] [place] [address] CBC AND DIFFERENTIALon 02-27 % AUTOMATED IMMATURE GRAN 0.4 % Normal 0.0 - 0.9 [facility] Comment on above: Result Comment: Kath ture Granulocyte Count (IG) includes promyelocytes, myelocytes and metamyelocytes but does not include bands. Percent differential counts (%) should be interpreted in the context of the absolute cell counts (cells/L). Performed By: #### C BCDF ####[id number] [place] [address] Basophils (Bld) [#/Vol] 0.01 10*3/uL Normal 0.00 - 0.10 [facility] Comment on above: Performed By: #### C BCDF ####[id number] [place] [address] Basophils/100 WBC (Bld) 0.2 % Normal 0.0 - 2.0 [facility] Comment on above: Performed By: #### C BCDF ####[id number] [place] [address] Erythrocyte distribution width (RBC) [Ratio] 12.8 % Normal 11.5 - 14.5 [facility] Comment on above: Performed By: #### C BCDF ####[id number] [place] [address] Hematocrit (Bld) [Volume fraction] 38.5 % Low 41.0 - 52.0 [facility] Comment on above: Performed By: #### C BCDF ####[facility] [place] [address] Hemoglobin (Bld) [Mass/Vol] 12.9 g/dL Low 13.5 - 17.5 [facility] Comment on above: Performed By: #### C BCDF ####[facility] [place] [address] Lymphocytes (Bld) [#/Vol] 0.37 10*3/uL Low 1.20 - 4.80 [facility] Comment on above: Performed By: #### C BCDF ####[id number] [place] [address] Lymphocytes/100 WBC (Bld) 6.8 % Normal 13.0 - 44.0 [facility] Comment on above: Performed By: #### C BCDF ####[id number] [place] [address] MCHC (RBC) [Mass/Vol] 33.5 g/dL Normal 32.0 - 36.0 [facility] Comment on above: Performed By: #### C BCDF ####[facility] [place] [address] MCV (RBC) [Entitic vol] 86 fL Normal 80 - 100 [facility] Comment on above: Performed By: #### C BCDF ####[facility] [place] [address] Monocytes (Bld) [#/Vol] 0.04 10*3/uL Low 0.10 - 1.00 [facility] Comment on above: Performed By: #### C BCDF ####[facility] [place] [address] Monocytes/100 WBC (Bld) 0.7 % Normal 2.0 - 10.0 [facility] Comment on above: Performed By: #### C BCDF ####[facility] [place] [address] Neutrophils (Bld) [#/Vol] 5.00 10*3/uL Normal 1.20 - 7.70 [facility] Comment on above: Performed By: #### C BCDF ####[facility] [facility] [place] [address] Neutrophils/100 WBC (Bld) 91.9 % Normal 40.0 - 80.0 [facility] Comment on above: Performed By: #### C BCDF ####[facility] [place] [address] Platelets (Bld) [#/Vol] 174 10*3/uL Normal 150 - 450 [facility] Comment on above: Performed By: #### C BCDF ####[facility] [place] [address] RBC 4.50 x10E12/L Normal 4.50 - 5.90 [facility] Comment on above: Performed By: #### C BCDF ####[facility] [place] [address] WBC (Bld) [#/Vol] 5.4 10*3/uL Normal 4.4 - 11.3 [facility] Comment on above: Performed By: #### C BCDF ####[facility] [place] [address] CHEST 1 VIEWon 02-27-2021 CHEST 1 VIEW Patient Name: HOSEA ALVAREZ STUDY: CHEST 1 VIEW; 02/27/2021 7:46 am INDICATION: Chest Pain. COMPARISON: 02/23/2021 ACCESSION NUMBER(S): [id number] ORDERING CLINICIAN: HERMES SEXTON FINDINGS: AP portable view of the chest is obtained. Limited exam due to portable nature. Magnified cardiac silhouette. No infiltrates, effusions or pneumothorax. IMPRESSION: 1. No evidence of acute cardiopulmonary process. Electronically signed by: CLOVIS VILLANUEVA MD Normal [facility] Complete Blood Count + Diffe rentialon 02-27-2021 Basophils/100 WBC (Bld) 0.2 % 0.0 - 2.0 [facility] Work Phone: [phone] Erythrocyte distribution width (RBC) [Ratio] 12.8 % See Below [facility] Work Phone: [phone] Comment on above: Reference Range: 11. 5 - 14.5 Hematocrit (Bld) [Volume fraction] 38.5 % below low threshold See Below [facility] Work Phone: [phone] Comment on above: Reference Range: 41. 0 - 52.0 Hemoglobin (Bld) [Mass/Vol] 12.9 g/dL below low threshold See Below [facility] Work Phone: [phone] Comment on above: Reference Range: 13. 5 - 17.5 Lymphocytes/100 WBC (Bld) 6.8 % See Below [facility] Work Phone: [phone] Comment on above: Reference Range: 13. 0 - 44.0 MCHC (RBC) [Mass/Vol] 33.5 g/dL See Below [facility] Work Phone: [phone] Comment on above: Reference Range: 32. 0 - 36.0 MCV (RBC) [Entitic vol] 86 fL 80 - [address] [facility] Work Phone: [phone] Monocytes/100 WBC (Bld) 0.7 % 2.0 - 10.0 [facility] Work Phone: [phone] Neutrophils/100 WBC (Bld) 91.9 % See Below [facility] Work Phone: [phone] Comment on above: Reference Range: 40. 0 - 80.0 Platelets (Bld) [#/Vol] 174 10*3/uL 150 - 450 [facility] Work Phone: RBC (Bld) [#/Vol] 4.50 {x10E12/L} See Below [facility] Work Phone: Comment on above: Reference Range: 4.5 0 - 5.90 WBC (Bld) [#/Vol] 5.4 10*3/uL 4.4 - 11.3 MG-Gas troente rology-[facility] Work Phone: Complete Blood Count + Differential 0.01 {x10E9/L} See Below [facility] Work Phone: Comment on above: Reference Range: 0.0 0 - 0.10 Complete Blood Count + Differential 0.04 {x10E9/L} below low threshold See Below -[facility] Work Phone: Comment on above: Reference Range: 0.1 0 - 1.00 Complete Blood Count + Differential 0.37 {x10E9/L} below low threshold See Below [facility] Work Phone: Comment on above: Reference Range: 1.2 0 - 4.80 Complete Blood Count + Differential 5.00 {x10E9/L} See Below MG-Gastroente rology-[facility]ag[facility] Work Phone: Comment on above: Reference Range: 1.2 0 - 7.70 Complete Blood Count + Differential 0.4 % 0.0 - 0.9 [facility] Work Phone: Comment on above: Immature Granulocyte Count (IG) includes promyelocytes, myelocytes and metamyelocytes but does not include bands. Percent differential counts (%) should be interpreted in the context of the absolute cell counts (cells/L). Laboratory - Chemistry and C hemistry - challengeon 02-27-2021 Anion gap [Moles/Vol] 12 mmol/L 10 - 20 MG- Gastroente rology-[facility] Work Phone: Calcium [Mass/Vol] 9.1 mg/dL 8.6 - 10.3 [facility]-Gas tro[facility] Work Phone: Chloride [Moles/Vol] 102 mmol/L 98 - 107 [facility]-G astroente [facility] hospital[facility] Work Phone: CO2 [Moles/Vol] 26 mmol/L 21 - 32 [facility]astro ente [facility] hospital[facility] Work Phone: Creatinine [Mass/Vol] 0.87 mg/dL See Below [facility] Work Phone: Comment on above: Reference Range: 0.5 0 - 1.30 Glucose [Mass/Vol] 147 mg/dL above high threshold 74 - 99 [facility] Work Phone: Potassium [Moles/Vol] 4.0 mmol/L 3.5 - 5.3 [facility] Work Phone: Sodium [Moles/Vol] 136 mmol/L 136 - 145 [facility]-Gas troente [facility] hospital[facility] Work Phone: Urea nitrogen [Mass/Vol] 14 mg/dL 6 - 23 [facility]-Gastroente rology-[facility] Work Phone: No Panel Informationon 02-27 EKG (Reference Range : not available) Ventricular Rate : 61 BPM Atrial Rate : 61 BPM P-R Interval : 182 ms QRS Duration : 114 ms Q-T Interval : 384 ms QTC Calculation(Bazett) : 386 ms Calculated P Wren : 28 degrees Calculated R Wren : -17 degrees Calculated T Wren : 0 degrees Diagnosis:Normal sinus rhythm Normal ECG When compared with ECG of 26-FEB-2021 17:56, No significant change was found Confirmed by Martin Shepard ([id number]) on 02/27/2021 1:54:01 PM See also the report from this date S >60 >60 [facility] Work Phone: Comment on above: CALCULATIONS OF NIKOLE MATED GFR ARE PERFORMED USING THE MDRD STUDY EQUATION FOR THE IDMS-TRACEABLE CREATININE METHODS. CLIN CHEM 2007;53:766-72 [email or web address] [email or web address] ll?RetrieveTestByDateTim e?KgebzlaPR=[id number]&Da te=03-28-2021&Time=07%3a 19%3a24%3a00&TestType=EC G&Site=7&OutputType=PDF& Ext=PDF [facility] [employer] Work Phone: [phone] Normal sinus rhythm [facility] [employer] Work Phone: [phone] Normal [facility] [employer] Work Phone: [phone] [facility] [employer] Work Phone: [phone] [facility] [employer] Work Phone: [phone] [facility] [employer] Work Phone: [phone] [facility] [employer] Work Phone: [phone] [facility] [employer] Work Phone: [phone] [facility] [employer] Work Phone: [phone] [facility] [employer] Work Phone: [phone] [facility] [employer] Work Phone: [phone] [facility] [employer] Work Phone: [phone] [facility] [employer] Work Phone: [phone] [facility] [employer] Work Phone: [phone] [facility] [employer] Work Phone: [phone] [facility] [employer] Work Phone: [phone] [facility] [employer] Work Phone: Provider Note - ED v2on 0 Provider Note - ED v2 Provider Note - ED v2: Chart Review: ED NOTES ED NOTES: History: This is a 50-year-old male presenting from he is homeless and called 911 by [facility] for chief complaint of chest pain. This patient has had multiple visits to multiple emergency departments for the same complaint including 2 visits to [facility] in the last 24 hours. It is [...] bringing up information on his phone under [employer] about post Covid noninfective endocarditis. 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 Normal [facility] Radiologyon 02-27-2021 XR Chest Single view Normal [facility] Work Phone: TROPONIN Ion 02-27-2021 TROPONIN I Canceled Normal [facility] Comment on above: Order [...] is performed using different testing methodology at [facility] than at other [facility]. Direct result comparisons should only be made within the same method. Performed By: #### T ROP2 #### [facility] [address] [place] [address] Troponin I.cardiac [Mass/Vol] ng/mL Normal 0.00 - 0.03 [facility] Comment on above: Result [...] is performed using different testing methodology at [facility] than at other [facility]. Direct result comparisons should only be made within the same method. Performed By: #### T ROP2 #### [facility] [address] [place] [address] Triage - EDon 02-27-2021 Triage - ED [...] BMI (kg/m2): 30.046 Calculated BSA (m2) 1.98 [place] Coma Scale: Best Eye Response: (E4) spontaneous Best Motor Response: (M6) obeys commands Best Verbal Response: (V5) oriented [place] Score: 15 Patient has homicidal thoughts: no [...] 27-Feb-2021 07:26 by Patrizia Vinson ([place]) Normal [facility] Troponin I, Serumon 02-28-20 21 Troponin I.cardiac [Mass/Vol] ng/mL See Below -[facility] Work Phone: Comment on above: Reference [...] is performed using different testing methodology at [facility] than at other [facility]. Direct result comparisons should only be made within the same method. No Panel Informationon 02-26 XR Chest Portable (1view) (Reference Range: not available) *FINAL Date of Service: 02/26/2021 19:37 Adm #: [id number] Reading Dr:ANEUDY CRAIN Signoff Dr: ANEUDY CRAIN [...] IMPRESSION: No acute pathologic findings are identified. [id number] This report has been produced using speech recognition. Original Interpreting Physician: ANEUDY CRAIN M.D. Original Transcribed by/Date: PSCB Feb 26 2021 7:46P Original Electronically Signed by/Date: ANEUDY CRAIN M.D. Feb 26 2021 7:46P Addendum Interpreting Physician: Addendum Transcribed by/Date: NO ADDENDUM Addendum Electronically Signed by/Date: [facility] Chart Updateon 02-23-2021 Chart Update Message Date: [...] told me we need his records from [facility] in [place], [place]. I had patient sign a Record Release form. To [facility] for review. ----- Per vo Dr. Lawton - Patient should follow up with scheduled testing (24 hour HLT 02/21/21 [facility] AND Ex Stress MRI 03/14/21 [facility]) and follow up with us as scheduled on 03/23/21. I [address] Dr. Lawton's reply/orders, patient did not agree with plan but he demonstrated a good understanding. Hosea told me he walking over to [facility] ER to get evaluated. I informed Dr. Lawton. ---ssd. Signatures Electronically signed by : Antonia Cuenca L.P.N.; Feb 23 2021 11:20AM EST (Author) Electronically signed by : Wally Lawton MD; Feb 23 2021 1:08PM EST (Author) Normal [employer] Complete Blood Count + Diffe ubaldo 02-23-2021 Basophils/100 WBC (Bld) 0.3 % 0.0 - 2.0 [facility] Work Phone: Erythrocyte distribution width (RBC) [Ratio] 12.6 % See Below [facility] Work Phone: Comment on above: Reference Range: 11. 5 - 14.5 Hematocrit (Bld) [Volume fraction] 36.6 % below low threshold See Below [facility] Work Phone: Comment on above: Reference Range: 41. 0 - 52.0 Hemoglobin (Bld) [Mass/Vol] 12.1 g/dL below low threshold See Below [facility] Work Phone: Comment on above: Reference Range: 13. 5 - 17.5 Lymphocytes/100 WBC (Bld) 19.2 % See Below [facility] Work Phone: Comment on above: Reference Range: 13. 0 - 44.0 MCHC (RBC) [Mass/Vol] 33.1 g/dL See Below [facility] Work Phone: Comment on above: Reference Range: 32. 0 - 36.0 MCV (RBC) [Entitic vol] 85 fL 80 - 100 [facility] Work Phone: [phone] Monocytes/100 WBC (Bld) 7.9 % 2.0 - 10.0 [facility] Work Phone: [phone] Neutrophils/100 WBC (Bld) 71.7 % See Below [facility] Work Phone: Comment on above: Reference Range: 40. 0 - 80.0 Platelets (Bld) [#/Vol] 135 10*3/uL below low threshold 150 - 450 [facility] Work Phone: [phone] RBC (Bld) [#/Vol] 4.31 {x10E12/L} below low threshold See Below [facility] Work Phone: Comment on above: Reference Range: 4.5 0 - 5.90 WBC (Bld) [#/Vol] 3.2 10*3/uL below low threshold 4.4 - 11.3 [facility] Work Phone: Complete Blood Count + Differential 0.01 {x10E9/L} See Below [facility] Work Phone: Comment on above: Reference Range: 0.0 0 - 0.10 Complete Blood Count + Differential 0.02 {x10E9/L} See Below [facility]astrocorey hospitalogy[facility] Work Phone: Comment on above: Reference Range: 0.0 0 - 0.70 Complete Blood Count + Differential 0.25 {x10E9/L} See Below [facility] Work Phone: Comment on above: Reference Range: 0.1 0 - 1.00 Complete Blood Count + Differential 0.61 {x10E9/L} below low threshold See Below [facility] Work Phone: Comment on above: Reference Range: 1.2 0 - 4.80 Complete Blood Count + Differential 2.27 {x10E9/L} See Below [facility] Work Phone: Comment on above: Reference Range: 1.2 0 - 7.70 Complete Blood Count + Differential 0.6 % 0.0 - 6.[address] [facility] Work Phone: Complete Blood Count + Differential 0.3 % 0.0 - 0.[address] [facility] Work Phone: Comment on above: Immature Granulocyte Count (IG) includes promyelocytes, myelocytes and metamyelocytes but does not include bands. Percent differential counts (%) should be interpreted in the context of the absolute cell counts (cells/L). Complete Blood Count + Differential 0.0 {/100_WBC} 0.0 - 0.[address] [facility] Work Phone: Coronavirus 2019 RNA by PCR, Symptomaticon 02-23-2021 Date and time of symptom onset [id number] [address] [facility] Work Phone: Coronavirus 2019 RNA by PCR, Symptomatic Not detected Normal See Below [facility] Work Phone: Comment on above: SOURCE: Nasal, [...] this test method. Fact sheet for providers: www.fda.gov/media/504006/downloadFact sheet for patients: www.fda.gov/media/615884/downloadThis test has received FDA Emergency Use Authorization (EUA) and has been verified by [facility]. This test is only authorized for the duration of time that circumstances exist to justify the authorization of the emergency use of in vitro diagnostic tests for the detection of SARS-CoV-2 virus and/or diagnosis of COVID-19 infection under section 564(b)(1) of the Act, 21 U.S.C. 360bbb-3(b)(1), unless the authorization is terminated or revoked sooner. [facility] is certified under CLIA-88 as qualified to perform high complexity testing. Testing is performed in the [facility] laboratory located at [address] [place] [address]. Laboratory - Chemistry and C hemistry - challengeon 02-23-2021 Albumin BCP dye [Mass/Vol] 4.1 g/dL 3.4 - 5.0 [facility] Work Phone: ALP [Catalytic activity/Vol] 48 U/L 33 - 120 [facility] Work Phone: ALT With P-5'-P [Catalytic activity/Vol] 15 U/L 10 - 52 [facility] Work Phone: Comment on above: Patients treated wit h Sulfasalazine may generate falsely decreased results for ALT. Anion gap [Moles/Vol] 14 mmol/L 10 - 20 [facility] Work Phone: AST With P-5'-P [Catalytic activity/Vol] 13 U/L 9 - 39 [facility]-Gastroente [facility] Work Phone: [phone] Bilirubin [Mass/Vol] 0.6 mg/dL 0.0 - 1.2 [facility]ente [facility] Work Phone: [phone] Calcium [Mass/Vol] 8.9 mg/dL 8.6 - 10.3 MG-Gas troente rology-[facility] Work Phone: [phone] Chloride [Moles/Vol] 104 mmol/L 98 - 107 MG-G astroente rology-[facility] Work Phone: [phone] CO2 [Moles/Vol] 24 mmol/L 21 - 32 [facility]-Gastro ente [facility] hospitalogy-[facility] Work Phone: [phone] Creatinine [Mass/Vol] 0.85 mg/dL See Below [facility]- [facility]ente [facility] Work Phone: [phone] Comment on above: Reference Range: 0.5 0 - 1.30 Glucose [Mass/Vol] 153 mg/dL above high threshold 74 - 99 [facility] Work Phone: [phone] Potassium [Moles/Vol] 4.0 mmol/L 3.5 - 5.3 [facility]- [facility]astroente [facility] hospital[facility] Work Phone: [phone] Protein [Mass/Vol] 6.5 g/dL 6.4 - 8.2 MG-Gas troente rology-[facility]ag[facility] Work Phone: [phone] Sodium [Moles/Vol] 138 mmol/L 136 - 145 MG-Gas troente rology-[facility]ag[facility] Work Phone: [phone] Urea nitrogen [Mass/Vol] 11 mg/dL 6 - 23 [facility]astroente [facility] hospital[facility] Work Phone: [phone] Laboratory - Coagulationon 0 -03-2021 INR Coag (PPP) [Relative time] 1.0 {INR} 0.9 - 1.1 MG-Gastroente [facility] hospitalogyKhoari n [facility] Work Phone: PT Coag (PPP) [Time] 11.6 s See Below MG-G astroente [facility] Work Phone: Comment on above: Reference Range: 10. 1 - 13.3 No Panel Informationon 02-23 295 {ng/mL_FEU} < or = 500 [facility]-Gastro ente [facility] hospitalyColl[facility] Work Phone: Comment on above: The VTE [...] or PE exclusion.) >60 >60 [facility]astroente [facility] hospitaledColl[facility] Work Phone: Comment on above: CALCULATIONS OF NIKOLE MATED GFR ARE PERFORMED USING THE MDRD STUDY EQUATION FOR THE IDMS-TRACEABLE CREATININE METHODS. CLIN CHEM 2007;53:766-72 [email or web address] 1:80 [email or web address] ll?RetrieveTestByDateTim e?ZkmsjneNS=[id number]&Da te=11-26-2020&Time=11%3a 50%3a51%3a00&TestType=EC G&Site=12&OutputType=PDF &Ext=PDF [facility] [employer] Work Phone: Normal sinus rhythm [facility] [employer] Work Phone: Normal [facility] [employer] Work Phone: [phone] [facility] [employer] Work Phone: [phone] [facility] [employer] Work Phone: [phone] [facility] [employer] Work Phone: [phone] [facility] [employer] Work Phone: [phone] [facility] [employer] Work Phone: [phone] [facility] [employer] Work Phone: [phone] [facility] [employer] Work Phone: [phone] [facility] [employer] Work Phone: [phone] [facility] [employer] Work Phone: [phone] [facility] [employer] Work Phone: [phone] [facility] [employer] Work Phone: [phone] [facility] [employer] Work Phone: [phone] [facility] [employer] Work Phone: [phone] [facility] [employer] Work Phone: Radiologyon 02-23-2021 XR Chest Single view Normal MG-G astroente [facility] Work Phone: Troponin I, Serumon 02-24-20 21 Troponin I.cardiac [Mass/Vol] ng/mL See Below [facility]-Gastroente [facility] Work Phone: Comment on above: [...] is performed using different testing methodology at [facility] than at other [facility] [facility] [facility]. Direct result comparisons should only be made within the same method. Complete Blood Count + Diffe rentialon 02-22-2021 Basophils/100 WBC (Bld) 0.6 % 0.0 - 2.0 [facility] [facility] Work Phone: Erythrocyte distribution width (RBC) [Ratio] 12.6 % See Below [facility] Work Phone: [phone] Comment on above: Reference Range: 11. 5 - 14.5 Hematocrit (Bld) [Volume fraction] 34.4 % below low threshold See Below [facility] Work Phone: [phone] Comment on above: Reference Range: 41. 0 - 52.0 Hemoglobin (Bld) [Mass/Vol] 11.3 g/dL below low threshold See Below [facility] Work Phone: [phone] Comment on above: Reference Range: 13. 5 - 17.5 Lymphocytes/100 WBC (Bld) 30.4 % See Below [facility] Work Phone: [phone] Comment on above: Reference Range: 13. 0 - 44.0 MCHC (RBC) [Mass/Vol] 32.8 g/dL See Below [facility] Work Phone: [phone] Comment on above: Reference Range: 32. 0 - 36.0 MCV (RBC) [Entitic vol] 88 fL 80 - 100 [facility] Work Phone: [phone] Monocytes/100 WBC (Bld) 8.8 % 2.0 - 10.0 [facility] Work Phone: [phone] Neutrophils/100 WBC (Bld) 59.0 % See Below [facility] Work Phone: Comment on above: Reference Range: 40. 0 - 80.0 Platelets (Bld) [#/Vol] 128 10*3/uL below low threshold 150 - 450 MG-Gastroente rology-Chagri [facility] Work Phone: RBC (Bld) [#/Vol] 3.90 {x10E12/L} below low threshold See Below [facility] Work Phone: Comment on above: Reference Range: 4.5 0 - 5.90 WBC (Bld) [#/Vol] 3.2 10*3/uL below low threshold 4.4 - 11.3 MG-Gastroente rology-Chagri [facility] Work Phone: Complete Blood Count + Differential 0.02 {x10E9/L} See Below [facility]astroente [facility] hospital[facility] Work Phone: Comment on above: Reference Range: 0.0 0 - 0.10 Complete Blood Count + Differential 0.03 {x10E9/L} See Below [facility]astroente [facility] hospitalogy-[facility] Work Phone: Comment on above: Reference Range: 0.0 0 - 0.70 Complete Blood Count + Differential 0.28 {x10E9/L} See Below [facility]-Gastroente [facility] hospitalogy-Chagri [facility] Work Phone: Comment on above: Reference Range: 0.1 0 - 1.00 Complete Blood Count + Differential 0.97 {x10E9/L} below low threshold See Below [facility]-Gastroente [facility] hospitalogy-Chagri [facility] Work Phone: Comment on above: Reference Range: 1.2 0 - 4.80 Complete Blood Count + Differential 1.88 {x10E9/L} See Below MG-Gastroente rology-Chagri [facility] Work Phone: Comment on above: Reference Range: 1.2 0 - 7.70 Complete Blood Count + Differential 0.9 % 0.0 - 6.0 [facility]ente [facility] Work Phone: Complete Blood Count + Differential 0.3 % 0.0 - 0.9 [facility] Work Phone: Comment on above: Immature Granulocyte Count (IG) includes promyelocytes, myelocytes and metamyelocytes but does not include bands. Percent differential counts (%) should be interpreted in the context of the absolute cell counts (cells/L). Complete Blood Count + Differential 0.0 {/100_WBC} 0.0-0.0 [facility]ente [facility] Work Phone: Initial Visit (Gastroenterol ogy)on 02-22-2021 Initial Visit (Gastroenterology) Diagnoses/Problems Assessed GERD (gastroesophageal reflux disease) (530.81) (K21.9) Constipation (564.00) (K59.00) Orders Constipation Start: Metamucil 28.3 % Oral Powder; mix one tablespoon in 8 ounces of water daily Rx By: Meagan Baugh; Dispense: 0 Days ; #:1 X 575 GM Bottle; Refill: 2;For: Constipation; JOSE = N; Verified Transmission to [facility] #3338; Last Updated By: [employer]; 02/22/2021 3:49:47 PM Esophageal spasm Start: Dicyclomine HCl - 20 MG Oral Tablet; TAKE 1 TABLET EVERY 6 HOURS NEEDED Rx By: Meagan Baugh; Dispense: 10 Days ; #:40 Tablet; Refill: 0;For: Esophageal spasm; JOSE = N; Verified Transmission to [facility]/PHARMACY #3338; Last Updated By: [employer]; 02/22/2021 3:16:56 PM GERD (gastroesophageal reflux disease) Start: Lidocaine Viscous HCl - 2 % Mouth/Throat Solution; take one teaspoon and swish and spit four times a day as needed Rx By: Meagan Baugh; Dispense: 0 Days ; #:100 Milliliter; Refill: 0;For: GERD (gastroesophageal reflux disease); JOSE = N; Verified Transmission to [facility]PHARMACY #3338; Last Updated By: [employer]; 02/22/2021 3:14:30 PM Endoscopy - Upper GI; Status:Hold For - Scheduling; Requested for:22Feb2021; Perform:[facility]; Due:[id number];Ordered; For:GERD (gastroesophageal reflux disease); Ordered By:Meagan Baugh; [...] disease); JOSE = N; Verified [facility] to [facility]; Last Updated By: [employer]; 02/22/2021 3:18:52 PM Start: Omeprazole 40 MG Oral Capsule Delayed Release; Take one capsule once a day Rx By: Meagan Baugh; Dispense: 0 Days ; #:30 Capsule; Refill: 11;For: GERD (gastroesophageal reflux disease); JOSE = N; Verified Transmission to [facility]; Last Updated By: [employer]; 02/22/2021 3:49:45 PM Patient Discussion/Summary Thank you [...] we will request an Upper Endoscopy at [facility] 3).Avoid foods known to trigger your [...] water. 7) follow up with the Daniella animal sitter you are scheduled to meet with next week for some of your food insecurity 8) follow up appointment ([phone] option 1 -[facility]) to be determined by Endosocopy results 9) Please call the office at [phone] with any questions or concerns. Provider Impressions 50 y/o man w/ PMHx HTN, Ascending Aortic Aneurysm, ELIANA, Hyperlipidemia, ? Bipolar, PTSD, P.E. 07/2020, Covid -19 07/2020 for complaint of difficulty swallowing with associated chest discomfort. Of note, on review of [facility], he has had at least 30 local ED visits since January 26, 2021 with all but 5 of those being related to a chest complaint. He has been seen at [facility], [facility], and [facility]. In the [facility] system, he has been seen at their main campus, [facility], and Home. Additionally in that timeframe he has been seen at [facility], [facility], [facility], and the [facility] administration. He has undergone at least 3 CTAs Chest, 3 CTA Abdomen/Pelvis, 3 CT chest and one CT Abdomen/Pelvis in that timeframe (27 days) with no significant finding other than an ascending (more content not included)... Normal [employer] [facility] - Chemistry and C hemistry - challengeon 02-22-2021 Albumin BCP dye [Mass/Vol] 3.8 g/dL 3.4 - 5.0 MG-Gastroente [facility] Work Phone: [phone] ALP [Catalytic activity/Vol] 51 U/L 33 - 120 [facility]-Gastroente [facility] hospitalogy-[facility] Work Phone: [phone] ALT With P-5'-P [Catalytic activity/Vol] 14 U/L 10 - 52 [facility]-Gastroente [facility] hospitalogy-Chagri [facility] Work Phone: [phone] Comment on above: Patients treated wit h Sulfasalazine may generate falsely decreased results for ALT. Anion gap [Moles/Vol] 10 mmol/L 10 - 20 MG- Gastroente [facility] hospitalogy-Chagri [facility] Work Phone: [phone] AST With P-5'-P [Catalytic activity/Vol] 12 U/L 9 - 39 [facility] Work Phone: [phone] Bilirubin [Mass/Vol] 0.3 mg/dL 0.0 - 1.2 MG-G astroentphoebe sumter medical centerogy-[facility] Hospitalri [facility] Work Phone: [phone] Calcium [Mass/Vol] 8.8 mg/dL 8.6 - 10.6 MG-Gas [facility] Work Phone: [phone] Chloride [Moles/Vol] 103 mmol/L 98 - 107 MG-G astroente [facility] hospitalogy-Chagri [facility] Work Phone: [phone] CO2 [Moles/Vol] 30 mmol/L 21 - 32 MG-Gastro ente tyler hospitalogy-Chagri [facility] Work Phone: [phone] Creatinine [Mass/Vol] 1.01 mg/dL See Below MG- Gastroente [facility] hospitalogy-[facility] Work Phone: [phone] Comment on above: Reference Range: 0.5 0 - 1.30 Glucose [Mass/Vol] 79 mg/dL 74 - 99 [facility]-Gas troente [facility] Work Phone: Potassium [Moles/Vol] 3.7 mmol/L 3.5 - 5.3 MG- [facility] Work Phone: Protein [Mass/Vol] 6.1 g/dL below low threshold 6.4 - 8.2 -[facility] Work Phone: Sodium [Moles/Vol] 139 mmol/L 136 - 145 [facility] Work Phone: Urea nitrogen [Mass/Vol] 13 mg/dL 6 - 23 MG-[facility] Work Phone: No Panel Informationon 02-22 >60 >[address] [facility] Work Phone: Comment on above: CALCULATIONS OF NIKOLE MATED GFR ARE PERFORMED USING THE MDRD STUDY EQUATION FOR THE IDMS-TRACEABLE CREATININE METHODS. CLIN CHEM 2007;53:766-72 28 pg/mL 0 - 99 -[facility] Work Phone: Comment on above: . <100 pg/mL - Heart failure [id number] pg/mL - Intermediate probability of acute heart. [...] link to view the study images Normal -[facility] Work Phone: [email or web address] e?CpumpxrAQ=[id number]&Da te=10-29-2020&Time=18%3a 26%3a59%3a00&TestType=EC G&Site=1&OutputType=PDF& Ext=PDF MG-Gastroente rology-Chagri [facility] Work Phone: [phone] Please see ED Provid er Note for formal interpretation MG-Gastroente rology-Chagri [facility] Work Phone: [phone] Normal MG-Gastroente rology-Chagri [facility] Work Phone: [phone] 1 MG-Gastroente rology-Chagri [facility] Work Phone: [phone] 1 MG-Gastroente rology-Chagri [facility] Work Phone: [phone] 1 MG-Gastroente rology-Chagri [facility] Work Phone: [phone] 1 MG-Gastroente rology-Chagri [facility] Work Phone: [phone] 1 MG-Gastroente rology-Chagri [facility] Work Phone: [phone] 11 1 MG-Gastroente rology-Chagri [facility] Work Phone: [phone] 1 MG-Gastroente rology-Chagri [facility] Work Phone: [phone] -19 1 MG-Gastroente rology-Chagri [facility] Work Phone: [phone] 28 1 MG-Gastroente rology-Chagri [facility] Work Phone: [phone] 1 MG-Gastroente rology-Chagri [facility] Work Phone: [phone] 1 MG-Gastroente rology-Chagri [facility] Work Phone: [phone] 1 [facility] Work Phone: [phone] MG-Gastroente [facility] hospitalogyColl[facility] Hospitalri [facility] Work Phone: [phone] MG-[facility]astroente [facility] Work Phone: Radiologyon 02-22-2021 XR Chest Single view Normal MG-G astroente [facility] Work Phone: Tobacco Screening.on 021 Fall risk assessment a) No falls within the last year [facility]ier [facility] Work Phone: Tobacco use status [facility] b) No [facility] Work Phone: Troponin I, Serumon 02-23-20 21 Troponin I.cardiac [Mass/Vol] ng/mL See Below -[facility] Work Phone: Comment on above: [...] is performed using different testing methodology at [facility] than at other [facility] [place] [facility]. Direct result comparisons should only be made [...] 0.2 % 0.0 - 2.0 [facility]ente [facility] Work Phone: [phone] Erythrocyte distribution width (RBC) [Ratio] 12.2 % See Below [facility] Work Phone: [phone] Comment on above: Reference Range: 11. 5 - 14.5 Hematocrit (Bld) [Volume fraction] 41.6 % See Below [facility] Work Phone: [phone] Comment on above: Reference Range: 41. 0 - 52.0 Hemoglobin (Bld) [Mass/Vol] 13.6 g/dL See Below [facility] Work Phone: [phone] Comment on above: Reference Range: 13. 5 - 17.5 Lymphocytes/100 WBC (Bld) 15.4 % See Below [facility] Work Phone: [phone] Comment on above: Reference Range: 13. 0 - 44.0 MCHC (RBC) [Mass/Vol] 32.7 g/dL See Below [facility] Work Phone: [phone] Comment on above: Reference Range: 32. 0 - 36.0 MCV (RBC) [Entitic vol] 88 fL 80 - [address] [facility] Work Phone: [phone] Monocytes/100 WBC (Bld) 4.3 % 2.0 - 10.0 [facility] Work Phone: [phone] Neutrophils/100 WBC (Bld) 79.9 % See Below [facility] Work Phone: [phone] Comment on above: Reference Range: 40. 0 - 80.0 Platelets (Bld) [#/Vol] 150 10*3/uL 150 - 450 [facility] Work Phone: RBC (Bld) [#/Vol] 4.72 {x10E12/L} See Below MG -Gastroente rology-Chagri [facility] Work Phone: Comment on above: Reference Range: 4.5 0 - 5.90 WBC (Bld) [#/Vol] 4.5 10*3/uL 4.4 - 11.3 MG-Gas troente rology-Chagri [facility] Work Phone: [phone] Complete Blood Count + Differential 0.01 {x10E9/L} See Below MG-Gastroente rology-Chagri [facility] Work Phone: Comment on above: Reference Range: 0.0 0 - 0.10 Complete Blood Count + Differential 0.00 {x10E9/L} See Below MG-Gastroente [facility] hospitalogy-Chagri [facility] Work Phone: Comment on above: Reference Range: 0.0 0 - 0.70 Complete Blood Count + Differential 0.19 {x10E9/L} See Below MG-Gastroente rology-Chagri [facility] Work Phone: Comment on above: Reference Range: 0.1 0 - 1.00 Complete Blood Count + Differential 0.69 {x10E9/L} below low threshold See Below MG-Gastroente rology-Chagri [facility] Work Phone: Comment on above: Reference Range: 1.2 0 - 4.80 Complete Blood Count + Differential 3.57 {x10E9/L} See Below MG-Gastroente rology-Chagri [facility] Work Phone: Comment on above: Reference Range: 1.2 0 - 7.70 Complete Blood Count + Differential 0.0 % 0.0 - 6.0 MG-Gastroente rology-Chagri [facility] Work Phone: Complete Blood Count + Differential 0.2 % 0.0 - 0.9 MG-Gastropremier health [facility] medical centery-[facility] Work Phone: Comment on above: Immature Granulocyte Count (IG) includes promyelocytes, myelocytes and metamyelocytes but does not include bands. Percent differential counts (%) should be interpreted in the context of the absolute cell counts (cells/L). Complete Blood Count + Differential 0.0 {/100_WBC} 0.0-0.0 [facility] Work Phone: Laboratory - Chemistry and C hemistry - challengeon 02-20-2021 Albumin BCP dye [Mass/Vol] 4.5 g/dL 3.4 - 5.0 [facility]roprem[facility] Work Phone: ALP [Catalytic activity/Vol] 60 U/L 33 - 120 MG-[facility] Work Phone: ALT With P-5'-P [Catalytic activity/Vol] 16 U/L 10 - 52 [facility] Work Phone: Comment on above: Patients treated wit h Sulfasalazine may generate falsely decreased results for ALT. Anion gap [Moles/Vol] 12 mmol/L 10 - 20 [facility] Work Phone: AST With P-5'-P [Catalytic activity/Vol] 14 U/L 9 - 39 [facility] Work Phone: Bilirubin [Mass/Vol] 0.5 mg/dL 0.0 - 1.2 MG-G astroente [facility] Work Phone: Calcium [Mass/Vol] 9.5 mg/dL 8.6 - 10.6 MG-Gas troente [facility] Work Phone: [phone] Chloride [Moles/Vol] 99 mmol/L 98 - 107 MG-G astroente [facility] hospitalogy-Chagri [facility] Work Phone: [phone] CO2 [Moles/Vol] 28 mmol/L 21 - 32 MG-Gastro ente tyler hospitalogy-Chagri [facility] Work Phone: [phone] Creatinine [Mass/Vol] 0.87 mg/dL See Below MG- Gastroente rology-Chagri [facility] Work Phone: [phone] Comment on above: Reference Range: 0.5 0 - 1.30 Glucose [Mass/Vol] 111 mg/dL above high threshold 74 - 99 MG-Gastroente [facility] hospitalogy-Chagri [facility] Work Phone: [phone] Potassium [Moles/Vol] 3.9 mmol/L 3.5 - 5.3 MG- Gastroente rology-Chagri [facility] Work Phone: [phone] Protein [Mass/Vol] 7.6 g/dL 6.4 - 8.2 MG-Gas troente [facility] hospitalogy-[facility] Work Phone: [phone] Sodium [Moles/Vol] 135 mmol/L below low threshold 136 - 145 MG-Gastroente [facility]ler hospitalogy-Chagri [facility] Work Phone: [phone] Urea nitrogen [Mass/Vol] 15 mg/dL 6 - 23 MG-Gastroente rology-Chagri [facility] Work Phone: [phone] Anion gap (Bld) [Moles/Vol] 12 mmol/L 10 - 25 MG-Gastroente rology-Chagri [facility] Work Phone: [phone] Calcium.ionized (Bld) [Moles/Vol] 1.23 mmol/L See Below MG-Gastroente [facility] hospitalogy-Chagri [facility] Work Phone: [phone] Comment on above: Reference Range: 1.1 0 - 1.33 Carboxyhemoglobin (BldV) [Mass fraction] 0.5 % MG-Gastroente [facility] hospitalogy-Chagri [facility] Work Phone: Comment on above: REF VALUESNONSMOKERS 0.5-1.5%SMOKERS 0.5-10.0% Chloride [Moles/Vol] 101 mmol/L 98 - 107 MG-G astroente [facility] Work Phone: [phone] CO2 (BldV) [Partial pressure] 47 mm[Hg] 41 - 51 MG-Gastroente [facility] hospitalogy-[facility] Work Phone: [phone] Glucose [Mass/Vol] 125 mg/dL above high threshold 74 - 99 MG-Gastroente [facility]ler hospitalogy-Chagri [facility] Work Phone: [phone] HCO3 (Bld) [Moles/Vol] 27.8 mmol/L above high threshold See Below MG-Gastroente [facility] hospitalogyColl[facility] Hospitalri [facility] Work Phone: [phone] Comment on above: Reference Range: 22. 0 - 26.0 Lactate [Moles/Vol] 1.1 mmol/L 0.4 - 2.0 MG-Ga stroente [facility] hospitalyColl[facility] Hospitalri [facility] Work Phone: [phone] Methemoglobin (BldV) [Mass fraction] 0.8 % 0.0 - 1.5 MG-Gastroente rology-Chagri [facility] Work Phone: [phone] Oxygen (BldV) [Partial pressure] 15 mm[Hg] below low threshold 35 - 45 MG-Gastroente [facility]ler hospitalogy-Chagri [facility] Work Phone: [phone] pH (BldV) 7.38 [pH] See Below MG-Gastroente tyler hospitalogy-Chagri [facility] Work Phone: Comment on above: Reference Range: 7.3 3 - 7.43 Potassium [Moles/Vol] 4.3 mmol/L 3.5 - 5.3 MG- Gastroente rolenmanuel-Khoari [facility] Work Phone: Sodium [Moles/Vol] 136 mmol/L 136 - 145 MG-Gas troarley [facility] Work Phone: Laboratory - Hematology and Cell countson 02-20-2021 Hematocrit (Bld) [Volume fraction] 42.0 % See Below [facility] Work Phone: Comment on above: Reference Range: 41. 0 - 52.0 Hemoglobin (Bld) [Mass/Vol] 14.3 g/dL See Below MG-Gastroarley [facility] hospitaly[facility] Work Phone: Comment on above: Reference Range: 13. 5 - 17.5 Lipase, Serumon 02-20-2021 Lipase [Catalytic activity/Vol] 11 U/L 9 - 82 [facility]rem[facility] Work Phone: Comment on above: Venipuncture immedia tely after or during the administration of Metamizole may lead to falsely low results. Testing should be performed immediately prior to Metamizole dosing. Q-emsjnv-e-benzoquinone imine (metabolite of Acetaminophen) will generate erroneously low results in samples for patients that have taken toxic doses of acetaminophen. Magnesium, Serumon Magnesium [Mass/Vol] 2.21 mg/dL See Below MG-G astroente [facility] Work Phone: Comment on above: Reference Range: 1.6 0 - 2.40 No Panel Informationon 02-20 [email or web address] e?LkojzdzSH=[id number]&Da te=20-02-2021&Time=11%3a 22%3a20%3a00&TestType=EC G&Site=1&OutputType=PDF& Ext=PDF MG-Gastroarley lawrence+memorial hospitaledChagri [facility] Work Phone: [phone] Please see ED Provid er Note for formal interpretation MG-Gastroente rology-Chagri [facility] Work Phone: [phone] Normal MG-Gastroente rology-Chagri [facility] Work Phone: [phone] 1 MG-Gastroente rology-Chagri [facility] Work Phone: [phone] 1 MG-Gastroente rology-Chagri [facility] Work Phone: [phone] 1 MG-Gastroente rology-Chagri [facility] Work Phone: [phone] 1 MG-Gastroente rology-Chagri [facility] Work Phone: [phone] 1 MG-Gastroente rology-Chagri [facility] Work Phone: [phone] 1 MG-Gastroente rology-Chagri [facility] Work Phone: [phone] 1 MG-Gastroente rology-Chagri [facility] Work Phone: [phone] 1 MG-Gastroente rology-Chagri [facility] Work Phone: [phone] 40 1 MG-Gastroente rology-Chagri [facility] Work Phone: [phone] 1 MG-Gastroente rology-Chagri [facility] Work Phone: [phone] 1 MG-Gastroente rology-Chagri [facility] Work Phone: [phone] 1 MG-Gastroente rology-Chagri [facility] Work Phone: [phone] 1 MG-Gastroente rology-Chagri [facility] Work Phone: [phone] 1 MG-Gastroente rology-Chagri [facility] Work Phone: [phone] [email or web address] e?MjdjanrQA=[id number]&Da te=20-02-2021&Time=10%3a 01%3a05%3a00&TestType=EC G&Site=1&OutputType=PDF& Ext=PDF MG-Gastroente rology-Chagri [facility] Work Phone: [phone] Please see ED Provid er Note for formal interpretation MG-Gastroente rology-Chagri [facility] Work Phone: [phone] Normal MG-Gastroente rology-Chagri [facility] Work Phone: [phone] 1 MG-Gastroente rology-Chagri [facility] Work Phone: [phone] 1 MG-Gastroente rology-Chagri [facility] Work Phone: [phone] 1 MG-Gastroente rology-Chagri [facility] Work Phone: [phone] 1 MG-Gastroente rology-Chagri [facility] Work Phone: [phone] 1 MG-Gastroente rology-Chagri [facility] Work Phone: [phone] 10 1 MG-Gastroente rology-Chagri [facility] Work Phone: [phone] 11 1 MG-Gastroente rology-Chagri [facility] Work Phone: [phone] -1 1 MG-Gastroente rology-Chagri [facility] Work Phone: [phone] 41 1 MG-Gastroente rology-Chagri [facility] Work Phone: [phone] 1 MG-Gastroente rology-Chagri [facility] Work Phone: [phone] MG-Gastroente rology-Chagri [facility] Work Phone: 100 1 MG-Gastroente [facility] hospitalogy-[facility] Work Phone: 200 1 MG-Gastroente rology-Chagri [facility] Work Phone: 61 1 MG-Gastroente rology-Chagri [facility] Work Phone: Normal MG-Gastroente [facility] hospitalogy-Chagri [facility] Work Phone: >60 >60 MG-Gastroente [facility] hospitalogy-Chagri [facility] Work Phone: Comment on above: CALCULATIONS OF NIKOLE MATED GFR ARE PERFORMED USING THE MDRD STUDY EQUATION FOR THE IDMS-TRACEABLE CREATININE METHODS. CLIN CHEM 2007;53:766-72 14 pg/mL 0 - 99 MG-Gastroente [facility] hospitalogy-Chagri [facility] Work Phone: Comment on above: . <100 pg/mL - Heart failure [id number] pg/mL - Intermediate probability of acute heart. [...] for further information. [email or web address] e?XbeznhaJU=[id number]&Da te=20-02-2021&Time=07%3a 00%3a10%3a00&TestType=EC G&Site=1&OutputType=PDF& Ext=PDF [facility] Work Phone: [phone] MG-Gastroente rology-Chagri n [facility] Work Phone: [phone] [facility]-Gastroente rology-Chagri n [facility] Work Phone: [phone] 1 [facility]astro[facility] rology-Chag[facility] Work Phone: [phone] [facility]Gastro[facility] rology-Ch[facility] Work Phone: [phone] [facility]astroente rology-Chag[facility] Work Phone: [phone] [facility]astro[facility] rology-Chag[facility] Work Phone: [phone] [facility]y-[facility] Work Phone: [phone] 1 [facility]-Gastroente rology-Chag[facility] Work Phone: [phone] 1 [facility]astro[facility]logy-[facility] Work Phone: [phone] 1 [facility]astro[facility] rology-Ch[facility] Work Phone: [phone] 1 [facility]astro[facility] rology-Ch[facility] Work Phone: [phone] [facility]astro[facility] rology-Chag[facility] Work Phone: [phone] 2.0 mmol/L -2.0 - 3.0 [facility]astro[facility]logy-[facility] Work Phone: [phone] % below low threshold 45 - 75 [facility]-Gastroente rology-Chagri [facility] Work Phone: [phone] 37.0 {degrees_C} MG-Gastr oente rology-Chagri [facility] Work Phone: [phone] Comment on above: NOTE: PATIENT RESULT S ARE NOT CORRECTED FOR TEMPERATURE. Radiologyon 02-20-2021 XR Chest Single view Normal MG-G rebeccantkatelynn [facility] Work Phone: Troponin I, Serumon 02-21-20 Troponin I.cardiac [Mass/Vol] ng/mL See Below [facility] Work Phone: Comment on above: Reference [...] is performed using different testing methodology at [facility] than at other [facility] [place] [facility]. Direct result comparisons should only be made within the same method.. Biotin interference may cause falsely decreased results. Patients taking a Biotin dose of up to 5 mg/day should refrain from taking Biotin for 24 hours before sample collection. Providers may contact their laboratory for further information. Troponin I.cardiac [Mass/Vol] ng/mL See Below [facility] Work Phone: Comment on above: Reference [...] is performed using different testing methodology at [facility] than at other [facility] [place] [facility]. Direct result comparisons should only be made [...] until 8 hours following last biotin administration. [facility] No Panel Informationon 02-19 HS Troponin T Delta 1 (0-4 ) Performed at [address] [address] 0 - 4 [facility] XR Chest 2 Views (PA and lat) (Reference Range: not available) *FINAL Date of Service: 02/19/2021 01:18 Adm #: [id number] Reading Dr:SOHAIL MARINA Signoff Dr: SOHAIL MARINA [...] the spine. Impression: No acute cardiopulmonary disease. [id number] This report has been produced using speech recognition. Original Interpreting Physician: SOHAIL MARINA M.D. Original Transcribed by/Date: PSCB Feb 19 2021 8:58A Original Electronically Signed by/Date: SOHAIL MARINA M.D. Feb 19 2021 8:58A Addendum Interpreting Physician: Addendum Transcribed by/Date: NO ADDENDUM Addendum Electronically Signed by/Date: S CBC AND DIFFERENTIALon 02-18 % AUTOMATED IMMATURE GRAN 0.5 % Normal 0.0 - 0.9 [facility] Comment on above: Result Comment: Kath ture Granulocyte Count (IG) includes promyelocytes, myelocytes and metamyelocytes but does not include bands. Percent differential counts (%) should be interpreted in the context of the absolute cell counts (cells/L). Performed By: #### C BCDF ####[address], [place] [id number] Basophils (Bld) [#/Vol] 0.01 10*3/uL Normal 0.00 - 0.10 [facility] Comment on above: Performed By: #### C BCDF ####[address], [place] [id number] Basophils/100 WBC (Bld) 0.2 % Normal 0.0 - 2.0 [facility] Comment on above: Performed By: #### C BCDF ####[address], [place] [id number] Eosinophils (Bld) [#/Vol] 0.01 10*3/uL Normal 0.00 - 0.70 [facility] Comment on above: Performed By: #### C BCDF ####[address], [place] [id number] Eosinophils/100 WBC (Bld) 0.2 % Normal 0.0 - 6.0 [facility] Comment on above: Performed By: #### C BCDF ####[address], [place] [id number] Erythrocyte distribution width (RBC) [Ratio] 12.2 % Normal 11.5 - 14.5 [facility] Comment on above: Performed By: #### C BCDF ####[address], [place] [id number] Hematocrit (Bld) [Volume fraction] 37.1 % Low 41.0 - 52.0 [facility] Comment on above: Performed By: #### C BCDF ####[place] [id number] [facility] [place] [phone] Hemoglobin (Bld) [Mass/Vol] 12.5 g/dL Low 13.5 - 17.5 [facility] Comment on above: Performed By: #### C BCDF ####[address], [place] [id number] Lymphocytes (Bld) [#/Vol] 1.21 10*3/uL Normal 1.20 - 4.80 [facility] Comment on above: Performed By: #### C BCDF ####[address], [place] [id number] Lymphocytes/100 WBC (Bld) 20.2 % Normal 13.0 - 44.0 [facility] Comment on above: Performed By: #### C BCDF ####[address], [place] [id number] MCHC (RBC) [Mass/Vol] 33.7 g/dL Normal 32.0 - 36.0 [facility] Comment on above: Performed By: #### C BCDF ####[address], [place] [phone] MCV (RBC) [Entitic vol] 83 fL Normal 80 - 100 [facility] Comment on above: Performed By: #### C BCDF ####[facility] [place] [address], [place] [phone] Monocytes (Bld) [#/Vol] 0.39 10*3/uL Normal 0.10 - 1.00 [facility] Comment on above: Performed By: #### C BCDF ####[address], [place] [id number] Monocytes/100 WBC (Bld) 6.5 % Normal 2.0 - 10.0 [facility] Comment on above: Performed By: #### C BCDF ####[facility] [facility], [place] [phone] Neutrophils (Bld) [#/Vol] 4.35 10*3/uL Normal 1.20 - 7.70 [facility] Comment on above: Performed By: #### C BCDF ####[facility] [facility], [place] [phone] Neutrophils/100 WBC (Bld) 72.4 % Normal 40.0 - 80.0 [facility] Comment on above: Performed By: #### C BCDF ####[facility] [facility] [place] [phone] Platelets (Bld) [#/Vol] 153 10*3/uL Normal 150 - 450 [facility] Comment on above: Performed By: #### C BCDF ####[facility] [facility], [place] [phone] RBC 4.47 x10E12/L Low 4.50 - 5.90 [facility] Comment on above: Performed By: #### C BCDF ####[facility] [facility], [place] [phone] WBC (Bld) [#/Vol] 6.0 10*3/uL Normal 4.4 - 11.3 [facility] Comment on above: Performed By: #### C BCDF ####[facility] [facility], [place] [phone] CHEST 1 VIEWon 02-18-2021 CHEST 1 VIEW Patient Name: HOSEA ALVAREZ STUDY: CHEST 1 VIEW; ; 02/18/2021 4:48 pm INDICATION: trouble swallowing. COMPARISON: 02/09/2021 ACCESSION NUMBER(S): [id number] ORDERING CLINICIAN: KEITH ARECHIGA FINDINGS: Portable AP view of the chest obtained in the upright position at 1640 hours. The cardiomediastinal silhouette is normal size. There is no pulmonary consolidation or pneumothorax. No acute bony abnormality. IMPRESSION: Nothing suspicious for acute cardiopulmonary disease. Electronically signed by: MARIO ALBERTO FONSECA MD [facility] COMPREHENSIVE PANELon 2020 Albumin [Mass/Vol] 4.2 g/dL Normal 3.4 - 5.0 [facility] Comment on above: Performed By: #### C BCDF #### [facility] [address] [facility] [place], [place] [phone] ALP [Catalytic activity/Vol] 44 U/L Normal 33 - 120 [facility] Comment on above: Performed By: #### C BCDF #### [facility] [address] [facility] [place], [place] [id number] ALT [Catalytic activity/Vol] 15 U/L Normal 10 - 52 [facility] Comment on above: Result Comment: Yanni ents treated with Sulfasalazine may generate falsely decreased results for ALT. Performed By: #### C BCDF #### [facility] [id number] [place] [address] [place], [place] [id number] Anion gap [Moles/Vol] 10 mmol/L Normal 10 - 20 [facility] Comment on above: Performed By: #### C BCDF #### [facility] [address] [facility] [place], [place] [phone] AST [Catalytic activity/Vol] 16 U/L Normal 9 - 39 [facility] Comment on above: Result Comment: MILD HEMOLYSIS DETECTED. The result may be falsely elevated due to hemolysis or other interferents. Clinical correlation is recommended. Repeat testing may be considered. Performed By: #### C BCDF #### [facility] [address] [facility] [place], [place] [phone] Bilirubin [Mass/Vol] 0.4 mg/dL Normal 0.0 - 1.2 [facility] Comment on above: Performed By: #### C BCDF #### [facility] [address] [facility] [place], [place] [phone] Calcium [Mass/Vol] 9.1 mg/dL Normal 8.6 - 10.3 [facility] Comment on above: Performed By: #### C BCDF #### [facility] [address] [facility] [place], [place] [phone] Chloride [Moles/Vol] 103 mmol/L Normal 98 - 107 [facility] Comment on above: Performed By: #### C BCDF #### [place] [address] [facility] [place], [place] [phone] Creatinine [Mass/Vol] 0.93 mg/dL Normal 0.50 - 1.30 [facility] Comment on above: Performed By: #### C BCDF #### [address] [place], [place] [id number] GFR- AM. >60 Normal >60 [facility] Comment on above: Result Comment: CALC ULATIONS OF ESTIMATED GFR ARE PERFORMED USING THE MDRD STUDY EQUATION FOR THE IDMS-TRACEABLE CREATININE METHODS. CLIN CHEM 2007;53:766-72 Performed By: #### C BCDF #### [address] [place], [place] [id number] GFR-NON AM. >60 Normal >60 [facility] Comment on above: Performed By: #### C BCDF #### [address] [place], [place] [phone] Glucose [Mass/Vol] 100 mg/dL High 74 - 99 [facility] Comment on above: Performed By: #### C BCDF #### [address] [place], [place] [phone] HCO3 (Bld) [Moles/Vol] 25 mmol/L Normal 21 - 32 [facility] Comment on above: Performed By: #### C BCDF #### [address] [place], [place] [phone] Potassium [Moles/Vol] 4.2 mmol/L Normal 3.5 - 5.3 [facility] Comment on above: Result Comment: MILD HEMOLYSIS DETECTED. The result may be falsely elevated due to hemolysis or other interferents. Clinical correlation is recommended. Repeat testing may be considered. Performed By: #### C BCDF #### [address] [place], [place] [phone] Protein [Mass/Vol] 6.9 g/dL Normal 6.4 - 8.2 [facility] Comment on above: Performed By: #### C BCDF #### [facility] [address] [facility], [place] [phone] Sodium [Moles/Vol] 134 mmol/L Low 136 - 145 [facility] Comment on above: Performed By: #### C BCDF #### [facility] [address] [facility], [place] [phone] Urea nitrogen [Mass/Vol] 15 mg/dL Normal 6 - 23 [facility] Comment on above: Performed By: #### C BCDF #### [facility] [address] [facility], [place] [id number] Chart Updateon 02-18-2021 Chart Update Diagnoses/Problems Ascending aortic aneurysm (441.2) (I71.2) Chest pain (786.50) (R07.9) Message Recorded as Task Date: 02/17/2021 10:20 AM, Created By: Antonia Cuenca Task Name: Callback Medical Advice Assigned To: Wally Lawton Regarding Patient: HOSEA ALVAREZ, Status: Active Comment: Antonia Cuenca - 17 Feb 2021 10:20 AM TASK CREATED Caller: Self; Patient saw Dr. Lawton at [facility] on 02/13/21. Since then he has gone to the ER at [facility] and the ER at [facility]. Hosea thinks he needs an Echocardiogram and would like Dr. Lawton to consider ordering this for him. Patient states he doesn't think he's going to survive waiting for the ordered testing (24 hour Holter on 02/21/21 at [facility] and the Stress MRI on 03/14/[address] [facility]). I tried reassuring the patient. To [facility] for review. ---ssd. I called and left a voice mail for the patient. Signatures Electronically signed by : Wally Lawton MD; Feb 18 2021 9:47AM EST (Author) Normal Touchworks Complete Blood Count + Diffe rentialon 02-18-2021 Basophils/100 WBC (Bld) 0.2 % 0.0 - 2.0 [facility] Work Phone: Erythrocyte distribution width (RBC) [Ratio] 12.2 % See Below [facility] Work Phone: Comment on above: Reference Range: 11. 5 - 14.5 Hematocrit (Bld) [Volume fraction] 37.1 % below low threshold See Below [facility] Work Phone: Comment on above: Reference Range: 41. 0 - 52.0 Hemoglobin (Bld) [Mass/Vol] 12.5 g/dL below low threshold See Below [facility] Work Phone: Comment on above: Reference Range: 13. 5 - 17.5 Lymphocytes/100 WBC (Bld) 20.2 % See Below [facility] Work Phone: Comment on above: Reference Range: 13. 0 - 44.0 MCHC (RBC) [Mass/Vol] 33.7 g/dL See Below [facility] Work Phone: Comment on above: Reference Range: 32. 0 - 36.0 MCV (RBC) [Entitic vol] 83 fL 80 - 100 [facility] Work Phone: Monocytes/100 WBC (Bld) 6.5 % 2.0 - 10.0 [facility] Work Phone: Neutrophils/100 WBC (Bld) 72.4 % See Below [facility] Work Phone: Comment on above: Reference Range: 40. 0 - 80.0 Platelets (Bld) [#/Vol] 153 10*3/uL 150 - 450 MG-Gastroente rology-Chagri [facility] Work Phone: RBC (Bld) [#/Vol] 4.47 {x10E12/L} below low threshold See Below MG-Gastroente rology-Chagri [facility] Work Phone: Comment on above: Reference Range: 4.5 0 - 5.90 WBC (Bld) [#/Vol] 6.0 10*3/uL 4.4 - 11.3 MG-Gas troente rology-Chagri [facility] Work Phone: [phone] Complete Blood Count + Differential 0.01 {x10E9/L} See Below MG-Gastroente rology-Chagri [facility] Work Phone: [phone] Comment on above: Reference Range: 0.0 0 - 0.10 Reference Range: 0.0 0 - 0.70 Complete Blood Count + Differential 0.39 {x10E9/L} See Below MG-Gastroente rology-Chagri [facility] Work Phone: Comment on above: Reference Range: 0.1 0 - 1.00 Complete Blood Count + Differential 1.21 {x10E9/L} See Below MG-Gastroente rology-Chagri [facility] Work Phone: Comment on above: Reference Range: 1.2 0 - 4.80 Complete Blood Count + Differential 4.35 {x10E9/L} See Below MG-Gastroente rology-Chagri [facility] Work Phone: Comment on above: Reference Range: 1.2 0 - 7.70 Complete Blood Count + Differential 0.2 % 0.0 - 6.0 MG-Gastroente rology-Chagri [facility] Work Phone: Complete Blood Count + Differential 0.5 % 0.0 - 0.9 MG-Gastroente rology-Chag[facility] Work Phone: Comment on above: Immature Granulocyte Count (IG) includes promyelocytes, myelocytes and metamyelocytes but does not include bands. Percent differential counts (%) should be interpreted in the context of the absolute cell counts (cells/L). Laboratory - Chemistry and C hemistry - challengeon 02-18-2021 Anion gap [Moles/Vol] Anion Gap 17 MMOL/ L (0-19 MMOL/L) 0 - 19 MMOL/L [facility] Calcium [Mass/Vol] Calcium 8.3 MG/DL L (8.5-10.4 MG/DL) Low 8.5 - 10.4 MG/DL S Chloride [Moles/Vol] Chloride 102 MMOL/L (97-107 MMOL/L) 97 - 107 MMOL/L S CO2 [Moles/Vol] Carbon Dioxide 20 MM OL/L L (24-31 MMOL/L) Low 24 - 31 MMOL/L S Creatinine [Mass/Vol] Creatinine R 0.9 M G/DL (0.4-1.6 MG/DL) 0.4 - 1.6 MG/DL [facility] GFR/1.73 sq M.predicted MDRD (S/P/Bld) [Vol rate/Area] EGFR 95 mL/min/1.73 m2 (Reference Range: not available) GFR ml/min/1.73m2 Stage ----- 90 1 60-89 2 30-59 3 15-29 4 <15 5 For -Americans, multiply EGFR result by 1.210 Calculation not validated for patients under 18 years of age. Performed at [address] [address] [facility] Glucose [Mass/Vol] Glucose 102 MG/DL H (65-99 MG/DL) High 65 - 99 MG/DL [facility] Potassium [Moles/Vol] Potassium R 3.8 MM OL/L (3.4-5.1 MMOL/L) 3.4 - 5.1 MMOL/L [facility] Sodium [Moles/Vol] Sodium 138 MMOL/L (133-145 MMOL/L) 133 - 145 MMOL/L [facility] Troponin T.cardiac [Mass/Vol] HS Troponin T,Gen 5 [...] until 8 hours following last biotin administration. [facility] Urea nitrogen [Mass/Vol] BUN 13 MG/DL (8-25 MG/DL) 8 - 25 MG/DL [facility] Urea nitrogen/Creatinine [Mass ratio] BUN Creatinine Ratio 14.4 RATIO (8-21 RATIO) 8 - 21 RATIO [facility] Albumin BCP dye [Mass/Vol] 4.2 g/dL 3.4 - 5.0 [facility] Work Phone: ALP [Catalytic activity/Vol] 44 U/L 33 - 120 [facility]ogy[facility] Work Phone: ALT With P-5'-P [Catalytic activity/Vol] 15 U/L 10 - 52 [facility] Work Phone: Comment on above: Patients treated wit h Sulfasalazine may generate falsely decreased results for ALT. Anion gap [Moles/Vol] 10 mmol/L 10 - 20 MG- Gastroente rology-Chagri [facility] Work Phone: AST With P-5'-P [Catalytic activity/Vol] 16 U/L 9 - 39 [facility]-Gastroente rology-Chag[facility] Work Phone: Comment on above: MILD HEMOLYSIS DETEC SEBASTIÁN. The result may be falsely elevated due tohemolysis or other interferents. Clinical correlation is recommended.Repeat testing may be considered. Bilirubin [Mass/Vol] 0.4 mg/dL 0.0 - 1.2 MG-G astroente rology-Chagri [facility] Work Phone: Calcium [Mass/Vol] 9.1 mg/dL 8.6 - 10.3 MG[facility]Gas troente [facility] Work Phone: [phone] Chloride [Moles/Vol] 103 mmol/L 98 - 107 MG-G astroente rology-Chagri [facility] Work Phone: CO2 [Moles/Vol] 25 mmol/L 21 - 32 MG-Gastro ente rology-Chagri [facility] Work Phone: Creatinine [Mass/Vol] 0.93 mg/dL See Below MG- Gastroente rology-Chagri [facility] Work Phone: Comment on above: Reference Range: 0.5 0 - 1.30 Glucose [Mass/Vol] 100 mg/dL above high threshold 74 - 99 MG-Gastroente rology-Chagri [facility] Work Phone: Potassium [Moles/Vol] 4.2 mmol/L 3.5 - 5.3 MG- Gastroente rology-Chagri [facility] Work Phone: Comment on above: MILD HEMOLYSIS DETEC SEBASTIÁN. The result may be falsely elevated due tohemolysis or other interferents. Clinical correlation is recommended.Repeat testing may be considered. Protein [Mass/Vol] 6.9 g/dL 6.4 - 8.2 [facility] Work Phone: Sodium [Moles/Vol] 134 mmol/L below low threshold 136 - 145 [facility] Work Phone: Urea nitrogen [Mass/Vol] 15 mg/dL 6 - 23 [facility] Work Phone: Laboratory - Hematology and Cell countson 02-18-2021 Basophils (Bld) [#/Vol] Abs Baso 0.01 K/UL (0.00-0.22 K/UL) 0.00 - 0.22 K/UL [facility] Basophils/100 WBC (Bld) Basophil 0.20 % (0-1 %) 0 - 1 % [facility] Differential cell count method Nom (Bld) Diff Type AUTO DIFF (Reference Range: not available) [facility] Eosinophils (Bld) [#/Vol] Abs Eos 0.02 K/UL (0-0.45 K/UL) 0 - 0.45 K/UL [facility] Eosinophils/100 WBC (Bld) Eosinophil 0.40 % (0-3 %) 0 - 3 % [facility] Erythrocyte distribution width (RBC) [Entitic vol] RDW SD 39.1 FL (37.0-54.0 FL) 37.0 - 54.0 FL [facility] Erythrocyte distribution width (RBC) [Ratio] RDW CV 12.6 % (11.7-15.0 %) 11.7 - 15.0 % [facility] Hematocrit (Bld) [Volume fraction] HCT 36.8 % L (41-50 %) Low 41 - 50 % [facility] Hemoglobin (Bld) [Mass/Vol] HGB 12.1 GM/DL L [...] 100 FL S Monocytes (Bld) [#/Vol] Abs Brown 0.36 K/UL (0-0.8 K/UL) 0 - 0.8 K/UL [facility] Monocytes/100 WBC (Bld) Monocyte 7.50 % (0-8 %) 0 - 8 % S Neutrophils (Bld) [#/Vol] Abs.Neut.Calculated 3.04 K/UL (Reference Range: not available) Performed at [address] [address] [facility] Neutrophils (Bld) [#/Vol] Abs Neut 3.04 K/UL (1.8-7.7 K/UL) 1.8 - 7.7 K/UL [facility] Neutrophils.immature/ 100 WBC (Bld) Immature Neut % 0.20 % (0.0-1.0 %) 0.0 - 1.0 % [facility] Nucleated RBC/100 WBC (Bld) [Ratio] NRBCs 0 /100 WBC (0 /100 WBC) [facility] Platelet mean volume (Bld) [Entitic vol] MPV 12.1 CU (7.0-12.6 CU) 7.0 - 12.6 CU [facility] Platelets (Bld) [#/Vol] PLT 156 K/UL (150-450 K/UL) 150 - 450 K/UL [facility] RBC (Bld) [#/Vol] RBC 4.27 M/UL L (4.5 -5.5 M/UL) Low 4.5 - 5.5 M/UL [facility] Segmented neutrophils/100 WBC (Bld) Granulocyte 63.50 % (50-70 %) 50 - 70 % [facility] WBC (Bld) [#/Vol] WBC 4.8 K/UL (4.5-11 .0 K/UL) 4.5 - 11.0 K/UL [facility] No Panel Informationon 02-18 HS Troponin T Delta 1 (0-4 ) Performed at [address] [address] 0 - 4 [facility] >60 >60 MG-Gastroente [facility] Work Phone: Comment on above: CALCULATIONS [...] precautions with the patient. Did require security monitor out of the ED as he became [...] a while (more content not included)... Normal [facility] Radiologyon 02-18-2021 XR Chest Single view Normal MG-G astroente [facility] Work Phone: Risk Screen - Adult Emergenc [...] Learning Preferencesverbal instruction Cultural Considerationsnone Developmental Considerationsnone Presybeterian Considerationsnone Learning Assessment (Other Learner): Learning Assessment (Other Learner): Other learner availableno Pressure Injury/TB/Substance: Pressure Injury: Do you have a coughno Substance Use Current or Former Historynever: Cigarette/Tobacco, e-Cigarette/Vaping, Street Drugs YES: Alcohol Alcohol Usedaily Admission Risk Screen: Significant IndicatorsComplete CAGE: CAGE: Is this an injured patient at a Trauma Center ([facility] /[place]): no Electronic Signatures: Ashkan Ott (BR[place]NN) (Signed 18-Feb-2021 15:53) Authored: Preferred Language, Advanced Directives, Family Violence Adult, Learning Assessment (Patient), Learning Assessment (Other Learner), Pressure Injury/TB/Substance, Pressure Injury, CAGE Last Updated: 18-Feb-2021 15:53 by Ashkan Ott (BROOKLYNN) Normal [facility] TROPONIN Ion 02-18-2021 Troponin I.cardiac [Mass/Vol] ng/mL Normal 0.00 - 0.03 [facility] Comment on above: Result Comment: LESS THAN [...] is performed using different testing methodology at [facility] than at other [facility] hospitals. Direct result comparisons should only be made within the same method. Performed By: #### T ROP2 ####[facility] [place], [place] [id number] Triage - EDon 02-18-2021 Triage - ED [...] Arrival: stretcher Mode of Arrival: ambulance Agency: [facility] Agency Name: Home Arrival From: home Accompanied By: self Language: Spoken Language Preferred: Scottish Reading Language Preferred: Scottish Soccer Commentator Requested: no solid waste facility supervisor was requested CHIEF COMPLAINT HOSEA ALVAREZ is a Male patient with a chief complaint of other. Other Complaints: c/o pain when swallowing which started a while ago after eating [facility] Triage Date/Time: 18-Feb-2021 15:48 WILMAN: 4 Pain [...] BMI (kg/m2): 29.904 Calculated BSA (m2) 1.98 Oakwood Coma Scale: Best Eye Response: (E4) spontaneous Best Motor Response: (M6) obeys commands Best Verbal Response: (V5) oriented Oakwood Score: 15 Allergies: yes Patient has homicidal [...] Last Updated: 18-Feb-2021 15:52 by Ashkan Ott) [facility] Troponin I, Serumon 02-19-20 21 Troponin I.cardiac [Mass/Vol] ng/mL See Below [facility] Work Phone: Comment on above: [...] is performed using different testing methodology at [facility] than at other [facility] hospitals. Direct result comparisons should [...] Self; Patient called, he was D/C from [facility] wearing a 24 hour Holter Monitor. Patient tells me he went to [facility] this week for a CT scan, they took off his monitor to do the test and it was lost. I notified [facility] Biometrics Dept., they will notify the monitor rep. so they can file the correct paperwork. Hosea also tells me he is living on the [place] and it is too hard to get to [facility] for testing and follow up appointments. (he has to take several buses and it takes several hours). Hosea would like to get referred to a Setter Automatic Spinning Lathe at [facility]. To [facility] for review. ---ssd. Antonia Cuenca - 16 Feb 2021 10:47 AM TASK REASSIGNED: Previously Assigned To Wally Lawton CORRECTION: I spoke with the patient again and now he tells me he wants to follow up with Dr. Lawton in [facility] / [place]. Hosea would like to know if [facility] wants him to wear another 24 hour Holter (since the first one was lost)? If yes, he wants it applied at [facility]. (exercise stress cardiac MRI at [facility] = 03/14/21. follow up OV = 03/23/21.) To [facility] for review. ---Wally Russ - 16 Feb 2021 6:50 PM TASK REPLIED TO: Previously Assigned To Wally Lawton Please arrange for the Holter to be re-applied. Thx. Antonia Cuenca - 17 Feb 2021 10:09 AM TASK REASSIGNED: Previously Assigned To Antonia Cuenca I called [facility] Holter / HHVI Dept. ([phone]) and scheduled the 24 hour Holter for 02/21/21 at 12:00pm (noon). I spoke with the patient regarding Dr. Lawton's reply/orders, the patient demonstrated a good understanding. ----ssd. Signatures Electronically signed by : Antonia Cuenca L.P.N.; Feb 17 2021 10:14AM EST (Author) Electronically signed by : Wally Lawton MD; Feb 18 2021 9:52AM EST (Author) Normal [employer] Chart Updateon 02-16-2021 Chart Update Message Recorded [...] REPLIED TO: Previously Assigned To Ivan Arango [facility] for patient. Patient is scheduled 03/14/21 for MRI at [facility]. Ivan Arango - 16 Feb 2021 9:55 AM TASK IN PROGRESS Ivan Arango - 16 Feb 2021 10:30 AM TASK REPLIED TO: Previously Assigned To Ivan Arango Patient aware of appt. Signatures Electronically signed by : Ivan Arango, ; Feb 16 2021 10:31AM EST (Co-author) Electronically signed by : Wally Lawton MD; Feb 16 2021 6:53PM EST (Author) Normal TouchShoutly CT Abdomen and Pelvis withou t Contraston [...] Dz; Status:Hold For - Scheduling; Requested for:15Feb2021; Perform:[facility]; Due:[id number];Ordered; For:Chest pain; Ordered By:Wally Lawton; Radiologist to Determine Optimal Study : Y Does the patient have a Cochlear Implant, Pacemaker, Defibrilator, Pacing Wire, Brain Aneurysm Clip, Implanted Nerve or Bone Graft Simulator, Implanted Breast Tissue Green Building Engineer, Glucose Monitor, or Neulasta Device? : No What are the patient's signs and symptoms? : chest pain, COVID MRI Cardiac w/wo contrast with Treadmill stress for Morph/Funct and Valve Dz; Status:Canceled - New order for pharmacologic study.; Perform:[facility];Ordered; For:Chest pain; Ordered By:Wally Lawton; Reason: Unspecified for MRI Cardiac w/wo contrast with Treadmill stress for Morph/Funct and Valve Dz Radiologist to Determine Optimal Study : Y Does the patient have a Cochlear Implant, Pacemaker, Defibrilator, Pacing Wire, Brain Aneurysm Clip, Implanted Nerve or Bone Graft Simulator, Implanted Breast Tissue Green Building Engineer, Glucose Monitor, or Neulasta Device? : No [...] [facility] [facility] [address] Work Phone: [phone] Comment on above: Reference Range: 11. 5 - 14.5 Hematocrit (Bld) [Volume fraction] 37.9 % below low threshold See Below [facility] [facility] [address] Work Phone: [phone] Comment on above: Reference Range: 41. 0 - 52.0 Hemoglobin (Bld) [Mass/Vol] 12.9 g/dL below low threshold See Below [facility] [facility] [address] Work Phone: [phone] Comment on above: Reference Range: 13. 5 - 17.5 Lymphocytes/100 WBC (Bld) 27.7 % See Below [facility] [facility] [address] Work Phone: [phone] Comment on above: Reference Range: 13. 0 - 44.0 MCHC (RBC) [Mass/Vol] 34.0 g/dL See Below [facility] [facility] [address] Work Phone: [phone] Comment on above: Reference Range: 32. 0 - 36.0 MCV (RBC) [Entitic vol] 84 fL 80 - [address] [facility] [address] Work Phone: [phone] Monocytes/100 WBC (Bld) 8.5 % 2.0 - 10.[address] [facility] [address] Work Phone: [phone] Neutrophils/100 WBC (Bld) 62.9 % See Below [facility] [facility] [address] Work Phone: [phone] Comment on above: Reference Range: 40. 0 - 80.0 Platelets (Bld) [#/Vol] 126 10*3/uL below low threshold 150 - [address] [facility] [address] Work Phone: [phone] RBC (Bld) [#/Vol] 4.51 {x10E12/L} See Below [facility] [address] [facility] [address] Work Phone: [phone] Comment on above: Reference Range: 4.5 0 - 5.90 WBC (Bld) [#/Vol] 3.8 10*3/uL below low threshold 4.4 - 11.[address] [facility] [address] Work Phone: [phone] Complete Blood Count + Differential 0.01 [...] 1.04 {x10E9/L} below low threshold See Below [address] [facility] [address] Work Phone: Comment on above: Reference Range: 1.2 0 - 4.80 Complete Blood Count + Differential 2.37 {x10E9/L} See Below [facility] [facility] [address] Work Phone: Comment on above: Reference Range: 1.2 0 - 7.70 Complete Blood Count + Differential 0.3 % 0.0 - 0.9 [facility] [facility] [address] Work Phone: Comment [...] (I10) Provider Impressions 50 [address] [facility] ER calling from the waiting room! Telemed [...] in many hospital systems in at least [place] and [place] History of Present IllnessConsult ? Fausto Calixto autoimmune issues or concerns Refer; Self [place] [facility] 50 M [address] in [facility] ER calling from the waiting room! Telemed [...] (I70.1) Results/Data CT Abdomen and Pelvis without [id number] 11:58AMMDejah sutton Test NameResultFlagReference CT Abdomen and Pelvis without Contrast(Report) Interpreted by: RASHAUN ESTRADA 02/15/21 12:10 Patient Name: HOSEA ALVAREZ STUDY: CT ABDOMEN AND PELVIS WO CONTRAST; CT CHEST WO CONTRAST; 02/15/2021 11:58 am INDICATION: epigastric pain ; pain. COMPARISON: None. ACCESSION NUMBER(S): [id number]; [id number] ORDERING CLINICIAN: DEJAH LEPE TECHNIQUE: Axial CT of the chest, abdomen, and pelvis was performed. Coronal and sagittal reconstructions were performed. No intravenous or oral contrast agents were administered. FINDINGS: Please note that the study is limited without intravenous contrast. CHEST: LUNG/PLEURA/LARGE AIRWAYS: The trachea and central airways are patent. No (more content not included)... Normal [employer] Laboratory - Chemistry and C hemistry - challengeon 02-15-2021 Albumin BCP dye [Mass/Vol] 4.2 g/dL 3.4 - 5.[address] [facility] [address] Work Phone: [phone] ALP [Catalytic activity/Vol] 46 U/L 33 - [address] [facility] [address] Work Phone: [phone] ALT With P-5'-P [Catalytic activity/Vol] 16 U/L 10 - [address] [facility] [address] Work Phone: [phone] Comment on above: Patients treated wit h Sulfasalazine may generate falsely decreased results for ALT. Anion gap [Moles/Vol] 12 mmol/L 10 - [address] [facility] [address] Work Phone: [phone] AST With P-5'-P [Catalytic activity/Vol] 14 U/L 9 - [address] [facility] [address] Work Phone: [phone] Bilirubin [Mass/Vol] 0.3 mg/dL 0.0 - 1.[address] [facility] [address] Work Phone: [phone] Calcium [Mass/Vol] 9.2 mg/dL 8.6 - 10.[address] [facility] [address] Work Phone: [phone] Chloride [Moles/Vol] 102 mmol/L 98 - [address] [facility] [address] Work Phone: [phone] CO2 [Moles/Vol] 27 mmol/L 21 - [address] [facility] [address] Work Phone: [phone] Creatinine [Mass/Vol] 0.90 mg/dL See Below [facility] [facility] [address] Work Phone: [phone] Comment on above: Reference Range: 0.5 0 - 1.30 Glucose [Mass/Vol] 99 mg/dL 74 - [address] [facility] [address] Work Phone: [phone] Potassium [Moles/Vol] 3.6 mmol/L 3.5 - 5.[address] [facility] [address] Work Phone: [phone] Protein [Mass/Vol] 7.1 g/dL 6.4 - 8.[address] [facility] [address] Work Phone: [phone] Sodium [Moles/Vol] 137 mmol/L 136 - [...] be performed immediately prior to Metamizole dosing. W-apsobw-l-benzoquinone imine (metabolite of Acetaminophen) will generate erroneously [...] QTC Calculation(Bazett) : 394 ms Calculated P Wren : 39 degrees Calculated R Wren : -11 degrees Calculated T Wren : 22 degrees Diagnosis:Normal sinus rhythm Normal ECG When compared with ECG of 15-FEB-2021 09:05, PREVIOUS ECG IS PRESENT Confirmed by Elizabet Gimenez ([id number]) on 02/15/2021 1:12:28 PM See also the report from this date [facility] Troponin I, Serumon 02-16-20 21 Troponin I.cardiac [...] is performed using different testing methodology at [facility] than at other [place] [facility]. Direct result comparisons should only be made within the same method. Laboratory - Chemistry and C hemistry - challengeon 02-14-2021 Anion gap [Moles/Vol] Anion Gap 18 MMOL/ L (0-19 MMOL/L) 0 - 19 MMOL/L [facility] Calcium [Mass/Vol] Calcium 8.6 MG/DL (8.5-10.4 MG/DL) 8.5 - 10.4 MG/DL [facility] Chloride [Moles/Vol] Chloride 102 MMOL/L (97-107 MMOL/L) 97 - 107 MMOL/L [facility] CO2 [Moles/Vol] Carbon Dioxide 19 MM OL/L L (24-31 MMOL/L) Low 24 - 31 MMOL/L [facility] Creatinine [Mass/Vol] Creatinine R 0.9 M G/DL (0.4-1.6 MG/DL) 0.4 - 1.6 MG/DL [facility] GFR/1.73 sq M.predicted MDRD (S/P/Bld) [Vol rate/Area] EGFR 95 mL/min/1.73 m2 (Reference Range: not available) GFR ml/min/1.73m2 Stage ----- 90 1 60-89 2 30-59 3 15-29 4 <15 5 For -Americans, multiply EGFR result by 1.210 Calculation not validated for patients under 18 years of age. Performed at [facility] [id number] [place] [id number] [facility] Glucose [Mass/Vol] Glucose 85 MG/DL (65 -99 MG/DL) 65 - 99 MG/DL [facility] Potassium [Moles/Vol] Potassium R 3.9 MM OL/L (3.4-5.1 MMOL/L) 3.4 - 5.1 MMOL/L [employer] Sodium [Moles/Vol] Sodium 139 MMOL/L (133-145 MMOL/L) 133 - 145 MMOL/L [employer] Troponin T.cardiac [Mass/Vol] HS Troponin T,Gen 5 [...] until 8 hours following last biotin administration. [facility] Urea nitrogen [Mass/Vol] BUN 14 MG/DL (8-25 MG/DL) 8 - 25 MG/DL [facility] Urea nitrogen/Creatinine [Mass ratio] BUN Creatinine Ratio 15.6 RATIO (8-21 RATIO) 8 - 21 RATIO [facility] Laboratory - Hematology and Cell countson 02-14-2021 Basophils (Bld) [#/Vol] Abs Baso 0.01 K/UL (0.00-0.22 K/UL) 0.00 - 0.22 K/UL [facility] Basophils/100 WBC (Bld) Basophil 0.20 % (0-1 %) 0 - 1 % [facility] Differential cell count method Nom (Bld) Diff Type AUTO DIFF (Reference Range: not available) [facility] Eosinophils (Bld) [#/Vol] Abs Eos 0.01 K/UL (0-0.45 K/UL) 0 - 0.45 K/UL S Eosinophils/100 WBC (Bld) Eosinophil 0.20 % (0-3 %) 0 - 3 % S Erythrocyte distribution width (RBC) [Entitic vol] RDW SD 37.7 FL (37.0-54.0 FL) 37.0 - 54.0 FL [facility] Erythrocyte distribution width (RBC) [Ratio] RDW CV 12.4 % (11.7-15.0 %) 11.7 - 15.0 % [facility] Hematocrit (Bld) [Volume fraction] HCT 36.5 % L (41-50 %) Low 41 - 50 % [facility] Hemoglobin (Bld) [Mass/Vol] HGB 12.1 GM/DL L (13.5-16.5 GM/DL) Low 13.5 - 16.5 GM/DL [facility] Immature granulocytes (Bld) [#/Vol] Abs Imm Neut 0.04 K/UL (0.0-0.1 K/UL) 0.0 - 0.1 K/UL [facility] Lymphocytes (Bld) [#/Vol] Abs Lymph 1.23 K/UL (1.2-3.2 K/UL) 1.2 - 3.2 K/UL [facility] Lymphocytes/100 WBC (Bld) Lymphocyte 22.30 % (20-40 %) 20 - 40 % [facility] MCH (RBC) [Entitic mass] MCH 28.4 PG (26-34 PG) 26 - 34 PG [facility] MCHC (RBC) [Mass/Vol] MCHC 33.2 % (31-37 %) 31 - 37 % S MCV (RBC) [Entitic vol] MCV 85.7 FL (80-100 FL) 80 - 100 FL [facility] Monocytes (Bld) [#/Vol] Abs Brown 0.41 K/UL (0-0.8 K/UL) 0 - 0.8 K/UL [facility] Monocytes/100 WBC (Bld) Monocyte 7.40 % (0-8 %) 0 - 8 % [facility] Neutrophils (Bld) [#/Vol] Abs.Neut.Calculated 3.82 K/UL (Reference Range: not available) Performed at [address] [address] [facility] Neutrophils (Bld) [#/Vol] Abs Neut 3.82 K/UL (1.8-7.7 K/UL) 1.8 - 7.7 K/UL [facility] Neutrophils.immature/ 100 WBC (Bld) Immature Neut % 0.70 % (0.0-1.0 %) 0.0 - 1.0 % [facility] Nucleated RBC/100 WBC (Bld) [Ratio] NRBCs 0 /100 WBC (0 /100 WBC) [facility] Platelet mean volume (Bld) [Entitic vol] MPV 12.0 CU (7.0-12.6 CU) 7.0 - 12.6 CU [facility] Platelets (Bld) [#/Vol] PLT 157 K/UL (150-450 K/UL) 150 - 450 K/UL [facility] RBC (Bld) [#/Vol] RBC 4.26 M/UL L (4.5 -5.5 M/UL) Low 4.5 - 5.5 M/UL [facility] Segmented neutrophils/100 WBC (Bld) Granulocyte 69.20 % (50-70 %) 50 - 70 % [facility] WBC (Bld) [#/Vol] WBC 5.5 K/UL (4.5-11 .0 K/UL) 4.5 - 11.0 K/UL [facility] No Panel Informationon 02-14 HS Troponin T Delta No previous result Performed at [address] [address] (0-4 ) 0 - 4 [facility] XR Chest Portable (1view) (Reference Range: not available) *FINAL Date of Service: 02/14/2021 20:43 Adm #: [id number] Reading Dr:GALA DIA Signoff Dr: GALA DIA [...] pneumonia, pleural effusion or pneumothorax. Leadless medical referral coordinator overlies the left chest.. IMPRESSION: An imaging explanation for the current clinical complaint is not identified [id number] This report has been produced using speech recognition. Original Interpreting Physician: GALA DIA MD Original Transcribed by/Date: PSCB Feb 14 2021 9:53P Original Electronically Signed by/Date: GALA DIA MD Feb 14 2021 9:53P Addendum Interpreting Physician: Addendum Transcribed by/Date: NO ADDENDUM Addendum Electronically Signed by/Date: [facility] Laboratory - Chemistry and C hemistry - challengeon 02-13-2021 Anion gap [Moles/Vol] 12 mmol/L 10 - 20 MP- Cardiology -[facility] [place] [facility] Work Phone: Calcium [Mass/Vol] 8.7 mg/dL 8.6 - 10.3 MP-Car diology -[facility] [place] [facility] Work Phone: Chloride [Moles/Vol] 104 mmol/L 98 - 107 MP-C ardiology -[facility] [place] [facility] Work Phone: CO2 [Moles/Vol] 26 mmol/L 21 - 32 -Cardio [facility] [employer] [address] Work Phone: Creatinine [Mass/Vol] 0.74 mg/dL See Below [facility] 200 Work Phone: Comment on above: Reference Range: 0.5 0 - 1.30 Glucose [Mass/Vol] 102 mg/dL above high threshold 74 - 99 [facility] 200 Work Phone: [phone] Potassium [Moles/Vol] 3.9 mmol/L 3.5 - 5.3 [facility] 200 Work Phone: [phone] Sodium [Moles/Vol] 138 mmol/L 136 - 145 [facility] Work Phone: Urea nitrogen [Mass/Vol] 12 mg/dL 6 - 23 [facility] 200 Work Phone: Laboratory - Hematology and Cell countson 02-13-2021 Erythrocyte distribution width (RBC) [Ratio] 12.5 % See Below [facility] 200 Work Phone: Comment on above: Reference Range: 11. 5 - 14.5 Hematocrit (Bld) [Volume fraction] 38.6 % below low threshold See Below [facility] 200 Work Phone: Comment on above: Reference Range: 41. 0 - 52.0 Hemoglobin (Bld) [Mass/Vol] 12.4 g/dL below low threshold See Below [facility] 200 Work Phone: Comment on above: Reference Range: 13. 5 - 17.5 MCHC (RBC) [Mass/Vol] 32.1 g/dL See Below [facility] 200 Work Phone: Comment on above: Reference Range: 32. 0 - 36.0 MCV (RBC) [Entitic vol] 88 fL 80 - 100 [facility] 200 Work Phone: [phone] Platelets (Bld) [#/Vol] 142 10*3/uL below low threshold 150 - 450 [facility] [employer] 200 Work Phone: RBC (Bld) [#/Vol] 4.37 {x10E12/L} below low threshold See Below [employer] 200 Work Phone: Comment on above: Reference Range: 4.5 0 - 5.90 WBC (Bld) [#/Vol] 3.5 10*3/uL below low threshold 4.4 - 11.3 [employer] [address] Work Phone: No Panel Informationon 02-13 [email or web address]?RetrieveTestByDateTim e?FlxklymSC=[id number]&Da te=13-02-2021&Time=23%3a 04%3a50%3a00&TestType=EC G&Site=12&OutputType=PDF &Ext=PDF [facility] [employer] Work Phone: [phone] Normal sinus rhythm [facility] [employer] Work Phone: [phone] [facility] [employer] Work Phone: [phone] [facility] [employer] Work Phone: [phone] [facility] [employer] Work Phone: [phone] [facility] [employer] Work Phone: [phone] [facility] [employer] Work Phone: [phone] [facility] [employer] Work Phone: [phone] [facility] [employer] Work Phone: [phone] [facility] [employer] Work Phone: [phone] [facility] [employer] Work Phone: [phone] [facility] [employer] Work Phone: [phone] [facility] [employer] Work Phone: [phone] [facility] [employer] Work Phone: [phone] [facility] [employer] Work Phone: [phone] [facility] [employer] Work Phone: 0.0 {/100_WBC} 0.0 - 0.0 -Cardiol og -[facility] [place] [facility] Work Phone: >60 >60 -Cardiology -[facility] [place] [facility] Work Phone: Comment on above: CALCULATIONS OF NIKOLE MATED GFR ARE PERFORMED USING THE MDRD STUDY EQUATION FOR THE IDMS-TRACEABLE CREATININE METHODS. CLIN CHEM 2007;53:766-72 CT Angio Cheston 02-12-2021 CTA Chest vessels Normal [facility] Work Phone: Complete Blood Count + Diffe rentialon 02-12-2021 Basophils/100 WBC (Bld) 0.5 % 0.0 - 2.0 [facility] [place] [facility] Work Phone: Erythrocyte distribution width (RBC) [Ratio] 12.6 % See Below [facility] 200 Work Phone: Comment on above: Reference Range: 11. 5 - 14.5 Hematocrit (Bld) [Volume fraction] 34.4 % below low threshold See Below [facility] 200 Work Phone: Comment on above: Reference Range: 41. 0 - 52.0 Hemoglobin (Bld) [Mass/Vol] 11.4 g/dL below low threshold See Below [facility] [place] [facility] Work Phone: Comment on above: Reference Range: 13. 5 - 17.5 Lymphocytes/100 WBC (Bld) 22.6 % See Below [facility] [place] [facility] Work Phone: Comment on above: Reference Range: 13. 0 - 44.0 MCHC (RBC) [Mass/Vol] 33.1 g/dL See Below [facility] [place] [facility] Work Phone: Comment on above: Reference Range: 32. 0 - 36.0 MCV (RBC) [Entitic vol] 86 fL 80 - 100 -Cardiology -[place] [facility] 200 Work Phone: [phone] Monocytes/100 WBC (Bld) 8.0 % 2.0 - 10.0 [facility] [facility] [address] Work Phone: Neutrophils/100 WBC (Bld) 67.5 % See Below [facility] -[place] [facility] [address] Work Phone: [phone] Comment on above: Reference Range: 40. 0 - 80.0 Platelets (Bld) [#/Vol] 141 10*3/uL below low threshold 150 - 450 [facility] [facility] [address] Work Phone: RBC (Bld) [#/Vol] 4.01 {x10E12/L} below low threshold See Below [facility] [facility] [address] Work Phone: [phone] Comment on above: Reference Range: 4.5 0 - 5.90 WBC (Bld) [#/Vol] 3.8 10*3/uL below low threshold 4.4 - 11.3 [facility] 200 Work Phone: Complete Blood Count + Differential 0.02 {x10E9/L} See Below [facility] 200 Work Phone: [phone] Comment on above: Reference Range: 0.0 0 - 0.10 Complete Blood Count + Differential 0.04 {x10E9/L} See Below [facility] 200 Work Phone: Comment on above: Reference Range: 0.0 0 - 0.70 Complete Blood Count + Differential 0.30 {x10E9/L} See Below [facility] 200 Work Phone: [phone] Comment on above: Reference Range: 0.1 0 - 1.00 Complete Blood Count + Differential 0.85 {x10E9/L} below low threshold See Below [facility] [facility] [address] Work Phone: [phone] Comment on above: Reference Range: 1.2 0 - 4.80 Complete Blood Count + Differential 2.54 {x10E9/L} See Below [employer] [place] [employer] Work Phone: Comment on above: Reference Range: 1.2 0 - 7.70 Complete Blood Count + Differential 1.1 % 0.0 - 6.0 [facility] [place] [facility] Work Phone: Complete Blood Count + Differential 0.3 % 0.0 - 0.9 [facility] [employer] Work Phone: Comment on above: Immature Granulocyte Count (IG) includes promyelocytes, myelocytes and metamyelocytes but does not include bands. Percent differential counts (%) should be interpreted in the context of the absolute cell counts (cells/L). Complete Blood Count + Differential 0.0 {/100_WBC} 0.0 - 0.0 [facility] [employer] Work Phone: Coronavirus 2019 RNA by PCR, Screening Asymptomticon 02-12-2021 Coronavirus 2019 RNA by PCR, Screening Asymptomtic Not detected Normal See Below [facility] [place] [employer] Work Phone: Comment on above: SOURCE: Nasal, [...] this test method. Fact sheet for providers: www.fda.gov/media/721932/downloadFact sheet for patients: www.fda.gov/media/097294/downloadThis test has received FDA Emergency Use Authorization (EUA) and has been verified by [facility] ([facility]). This test is only authorized for the duration of time that circumstances exist to justify the authorization of the emergency use of in vitro diagnostic tests for the detection of SARS-CoV-2 virus and/or diagnosis of COVID-19 infection under section 564(b)(1) of the Act, 21 U.S.C. 360bbb-3(b)(1), unless the authorization is terminated or revoked sooner. [facility] is certified under CLIA-88 as qualified to perform high complexity testing. Testing is performed in the [facility] laboratories located at [address] [place] [address]. Laboratory - Chemistry and C hemistry - challengeon 02-12-2021 Albumin BCP dye [Mass/Vol] 3.9 g/dL 3.4 - 5.0 [facility] 200 Work Phone: ALP [Catalytic activity/Vol] 42 U/L 33 - 120 [facility] [facility] 200 Work Phone: ALT With P-5'-P [Catalytic activity/Vol] 14 U/L 10 - 52 [facility] 200 Work Phone: Comment on above: Patients treated wit h Sulfasalazine may generate falsely decreased results for ALT. Anion gap [Moles/Vol] 10 mmol/L 10 - 20 - [facility] 200 Work Phone: AST With P-5'-P [Catalytic activity/Vol] 14 U/L 9 - 39 [facility] [facility] 200 Work Phone: Bilirubin [Mass/Vol] 0.4 mg/dL 0.0 - 1.2 [facility] [facility] 200 Work Phone: Calcium [Mass/Vol] 8.3 mg/dL below low threshold 8.6 - 10.3 [facility] 200 Work Phone: Chloride [Moles/Vol] 105 mmol/L 98 - 107 -[facility] 200 Work Phone: CO2 [Moles/Vol] 27 mmol/L 21 - 32 -[facility] logy -[place] 200 Work Phone: Creatinine [Mass/Vol] 0.92 mg/dL See Below [facility] 200 Work Phone: Comment on above: Reference Range: 0.5 0 - 1.30 Glucose [Mass/Vol] 94 mg/dL 74 - 99 -[facility] 200 Work Phone: [phone] Potassium [Moles/Vol] 4.0 mmol/L 3.5 - 5.3 - Cardiology -[facility] [place] 200 Work Phone: [phone] Protein [Mass/Vol] 6.2 g/dL below low threshold 6.4 - 8.2 -Cardiology -[facility] [place] 200 Work Phone: [phone] Sodium [Moles/Vol] 138 mmol/L 136 - 145 [facility] -[facility] [place] 200 Work Phone: Urea nitrogen [Mass/Vol] 12 mg/dL 6 - 23 -Cardiology -[facility] [place] 200 Work Phone: Laboratory - Coagulationon 0 02-12-2021 INR Coag (PPP) [Relative time] 1.0 {INR} 0.9 - 1.1 [facility] [place] 200 Work Phone: [phone] PT Coag (PPP) [Time] 11.9 s See Below MP-[facility] ardiology -[facility] [place] 200 Work Phone: Comment on above: Reference Range: 10. 1 - 13.3 Laboratory - Drug toxicology on 02-12-2021 Amphetamines Screen Ql (U) Negative NEGATIVE [facility] 200 Work Phone: Comment on above: CUTOFF LEVEL: 500 NG /ML Cross-reactivity has been reported with high concentrations of the following drugs: buproprion, chloroquine, chlorpromazine, ephedrine, mephentermine, fenfluramine, phentermine, phenylpropanolamine, pseudoephedrine, and propranolol. Barbiturates Screen Ql (U) Negative NEGATIVE -[facility] [facility] 200 Work Phone: Comment on above: CUTOFF LEVEL: 200 NG /ML Benzodiazepines Ql (U) Negative NEGATIVE [facility] [place] 200 Work Phone: Comment on above: CUTOFF [...] CUTOFF LEVEL: 150 NG /ML The metabolite L-eurzi-vtrjgsuxwssjqx (LAAM) is not detected by this method in concentrations that would be found in the urine of patients on LAAM therapy. Opiates Screen Ql (U) Negative NEGATIVE [facility]- [facility] [facility] 200 Work Phone: Comment on above: [...] Phencyclidine Ql (U) Negative NEGATIVE [facility] ardiology -[place] [facility] 200 Work Phone: Comment on above: CUTOFF LEVEL: 25 NG/ ML Cross-reactivity has been reported with dextromethorphan. Magnesium, Serumon Magnesium [Mass/Vol] 1.80 mg/dL See Below [facility] ardiology -[place] [facility] 200 Work Phone: Comment on above: Reference Range: 1.6 0 - 2.40 No Panel Informationon 02-12 [email or web address]?RetrieveTestByDateTim e?MwpfwhyDA=[id number]&Da te=12-02-2021&Time=18%3a 11%3a14%3a00&TestType=EC G&Site=12&OutputType=PDF &Ext=PDF [facility] [employer] Work Phone: [phone] Normal sinus rhythm [facility] [employer] Work Phone: [phone] [facility] [employer] Work Phone: [phone] [facility] [employer] Work Phone: [phone] [facility] [employer] Work Phone: [phone] [facility] [employer] Work Phone: [phone] [facility] [employer] Work Phone: [phone] [facility] [employer] Work Phone: [phone] [facility] [employer] Work Phone: [phone] [facility] [employer] Work Phone: [phone] [facility] [employer] Work Phone: [phone] [facility] [employer] Work Phone: [phone] [facility] [employer] Work Phone: [phone] [facility] [employer] Work Phone: [phone] [facility] [employer] Work Phone: [phone] [facility] [employer] Work Phone: [phone] [facility] [employer] Work Phone: [phone] SEE BELOW [facility] [employer] [facility] 200 Work Phone: Comment on above: Drug screen results are presumptive and should not be used to assess compliance with prescribed medication. Contact the performing [facility] laboratory to add-on definitive confirmatory testing [...] directors. 42 pg/mL 0 - 99 [facility] [facility] 200 Work Phone: Comment on above: . <100 pg/mL - Heart failure qifxsjhc699-623 pg/mL - Intermediate probability of acute heart. failure exacerbation. Correlate with clinical. context and patient history. >=300 pg/mL - Heart Failure likely. Correlate with clinical. context and patient history.BNP testing is performed using different testing methodology at [facility] than at other [facility] [facility]. Direct result comparisons should only be made within the same method. >60 >60 [facility] [employer] 200 Work Phone: Comment on above: CALCULATIONS OF NIKOLE MATED GFR ARE PERFORMED USING THE MDRD STUDY EQUATION FOR THE IDMS-TRACEABLE CREATININE METHODS. CLIN CHEM 2007;53:766-72 [email or web address]?RetrieveTestByDateTim e?KvkcrlkDL=[id number]&Da te=12-02-2021&Time=16%3a 31%3a11%3a00&TestType=EC G&Site=12&OutputType=PDF &Ext=PDF [facility] [employer] Work Phone: [phone] Normal sinus rhythm [facility] Work Phone: [phone] [facility] [employer] Work Phone: [phone] [facility] [employer] Work Phone: [phone] [facility] [employer] Work Phone: [phone] [facility] [employer] Work Phone: [phone] [facility] [employer] Work Phone: [phone] [facility] [employer] Work Phone: [phone] [facility] [employer] Work Phone: [phone] [facility] [employer] Work Phone: [phone] [facility] Work Phone: [phone] [facility] [employer] Work Phone: [phone] [facility] [employer] Work Phone: [phone] [facility] [employer] Work Phone: [phone] [facility] Work Phone: [phone] [facility] Work Phone: [phone] [facility] Work Phone: Troponin I, Serumon 02-13-20 21 Troponin I.cardiac [Mass/Vol] ng/mL See Below [facility] Work Phone: Comment on above: Reference Range: [...] is performed using different testing methodology at [facility] than at other [facility] [facility] [facility]. Direct result comparisons should only be made within the same method. Troponin I.cardiac [Mass/Vol] ng/mL See Below [facility] Work Phone: Comment on above: Reference Range: [...] is performed using different testing methodology at [facility] than at other [facility] [facility]. Direct result comparisons should only be made within the same method. Troponin I.cardiac [Mass/Vol] ng/mL See Below [facility] Work Phone: Comment on above: Reference Range: [...] is performed using different testing methodology at [facility] than at other [facility]. Direct result comparisons should only be made within the same method. Troponin I.cardiac [Mass/Vol] ng/mL See Below [facility] Work Phone: Comment on above: Reference Range: [...] is performed using different testing methodology at [facility] than at other [facility] [facility]. Direct result comparisons should only be made within the same method. Troponin I.cardiac [Mass/Vol] Canceled [facility] Work Phone: Comment on above: LESS THAN [...] is performed using different testing methodology at [facility] than at other [facility]. Direct result comparisons should only be made within the same method. Urinalysison 02-12-2021 Color (U) COLORLESS See Below [facility] Work Phone: Comment on above: Reference Range: STR AW,YELLOW Glucose Ql (U) Negative NEGATIVE [facility] [facility] 200 Work Phone: [phone] Ketones Ql (U) Negative NEGATIVE [facility] [facility] 200 Work Phone: [phone] Leukocyte esterase Test strip Ql (U) Negative NEGATIVE [facility] [facility] 200 Work Phone: [phone] pH (U) 6.0 [pH] 5.0 - 8.0 [facility] [facility] 200 Work Phone: [phone] Protein (U) [Mass/Vol] Negative NEGATIVE [facility] [facility] 200 Work Phone: [phone] RBC (U) [#/Vol] Negative NEGATIVE [facility]io logy [facility] [facility] 200 Work Phone: Specific gravity (U) [Rel density] 1.003 1 below low threshold See Below [facility] [facility] 200 Work Phone: Comment on above: Reference Range: 1.0 05 - 1.035 Urinalysis Negative NEGATIVE [facility] [facility] 200 Work Phone: [phone] Comment on above: CUTOFF LEVEL: 1 NG/M L Urinalysis <2.0 0.0 - 1.9 [facility] [facility] 200 Work Phone: [phone] Urinalysis CLEAR CLEAR [facility] [facility] 200 Work Phone: ALC ETHANOLon 02-10-2021 ALC ETHANOL 24.0 mg/dL High <10.0 [facility] Comment on above: Result Comment: [employer] NFIR[employer] Toxicology results. For MEDICAL purposes only. Performed By: #### L 500.82160, L500.60502, L500.89097, L500.55510, L500.23737 #### Test performed at: [address] [address] CBC W/DIFFon 02-10-2021 BASO ABS 0.0 K/uL Normal 0.0-0.2 [facility] Comment on above: Performed By: #### L 200.57948 #### Test performed at: [address] [address] Basophils/100 WBC (Bld) 0.5 % Normal [facility] Comment on above: Performed By: #### L 200.07860 #### Test performed at: [address] [address] EOS ABS 0.1 K/uL Normal 0.0-0.5 [facility] Comment on above: Performed By: #### L 200.94108 #### Test performed at: [address] [address] Eosinophils/100 WBC (Bld) 2.4 % Normal [facility] Comment on above: Performed By: #### L 200.66130 #### Test performed at: [address] [address] Erythrocyte distribution width (RBC) [Ratio] 12.3 % Normal 11.5-14.5 [facility] Comment on above: Performed By: #### L 200.01135 #### Test performed at: [address] [address] Hematocrit (Bld) [Volume fraction] 36.3 % Low 39.0-55.0 [facility] Comment on above: Performed By: #### L 200.25757 #### Test performed at: [address] [address] Hemoglobin (Bld) [Mass/Vol] 12.1 g/dL Low 14.0-16.5 [facility] Comment on above: Performed By: #### L 200.14631 #### Test performed at: [address] [address] IG % 0.5 % Normal [facility] Comment on above: Performed By: #### L 200.19831 #### Test performed at: [address] [address] IG ABS 0.02 K/uL Normal 0-0.05 [facility] Comment on above: Performed By: #### L 200.78393 #### Test performed at: [address] [address] Lymphocytes (Bld) [#/Vol] 1.3 10*3/uL Normal 1.2-3.5 [facility] Comment on above: Performed By: #### L 200.80356 #### Test performed at: [place] [id number] Lymphocytes/100 WBC (Bld) 35.9 % Normal [facility] Comment on above: Performed By: #### L 200.54828 #### Test performed at: [address] [address] MCH (RBC) [Entitic mass] 28.5 pg Normal 25.4-34.6 [facility] Comment on above: Performed By: #### L 200.82974 #### Test performed at: [address] [address] MCHC (RBC) [Mass/Vol] 33.3 g/dL Normal 31.5-36.5 [facility] Comment on above: Performed By: #### L 200.72734 #### Test performed at: [address] [address] MCV (RBC) [Entitic vol] 85.4 fL Normal 80.0-100.0 [facility] Comment on above: Performed By: #### L 200.25239 #### Test performed at: [address] [address] MONO ABS 0.3 K/uL Normal 0.0-1.0 [facility] Comment on above: Performed By: #### L 200.52721 #### Test performed at: [address] [address] Monocytes/100 WBC (Bld) 8.6 % Normal [facility] Comment on above: Performed By: #### L 200.81608 #### Test performed at: [address] [address] NEUTROPHIL ABS 1.9 K/uL Normal 1.4-6.6 [facility] Comment on above: Performed By: #### L 200.72971 #### Test performed at: [address] [address] Neutrophils/100 WBC (Bld) 52.1 % Normal [facility] Comment on above: Performed By: #### L 200.19699 #### Test performed at: [address] [address] NRBC # 0.000 K/uL Normal 0-0.012 [facility] Comment on above: Performed By: #### L 200.22397 #### Test performed at: [address] [address] NRBC % 0.0 /100 WBC Normal 0-0.2 [facility] Comment on above: Performed By: #### L 200.64061 #### Test performed at: [address] [address] Platelet mean volume (Bld) [Entitic vol] 11.6 fL Normal 8.7-12.4 [facility] Comment on above: Performed By: #### L 200.24946 #### Test performed at: [address] [address] Platelets (Bld) [#/Vol] 147 10*3/uL Normal 140-440 [facility] Comment on above: Performed By: #### L 200.11988 #### Test performed at: [address] [address] RBC (Bld) [#/Vol] 4.25 10*6/uL Normal 3.5-5.5 [facility] Comment on above: Performed By: #### L 200.43601 #### Test performed at: [address] [address] WBC (Bld) [#/Vol] 3.7 10*3/uL Low 3.9-11.0 [facility] Comment on above: Performed By: #### L 200.48268 #### Test performed at: [address] [address] CKon 02-10-2021 CK [Catalytic activity/Vol] 44 U/L Normal 39-308 [facility] Comment on above: Performed By: #### L 500.75528, L500.14072, L500.58183, L500.60185, L500.11712 #### Test performed at: [address] [address] COMP META PANELon 02-10-2021 Albumin [Mass/Vol] 3.6 g/dL Normal 3.4-5.0 [facility] Comment on above: Performed By: #### L 500.04950, L500.98186, L500.34060, L500.24828, L500.25033 #### Test performed at: [address] [address] ALK PHOS TOTAL 49 U/L Normal 45-117 [facility] Comment on above: Performed By: #### L 500.49259, L500.85808, L500.10547, L500.04881, L500.42896 #### Test performed at: [place] [id number] ALT [Catalytic activity/Vol] 25 U/L Normal 13-61 [facility] Comment on above: Performed By: #### L 500.85233, L500.30310, L500.44762, L500.85574, L500.28794 #### Test performed at: [address] [address] AST [Catalytic activity/Vol] 9 U/L Low 15-37 [facility] Comment on above: Performed By: #### L 500.37038, L500.10103, L500.76692, L500.36943, L500.19843 #### Test performed at: [address] [address] BILI TOTAL 0.3 mg/dL Normal 0.2-1.0 [facility] Comment on above: Performed By: #### L 500.28071, L500.02740, L500.23845, L500.31609, L500.02981 #### Test performed at: [address] [address] Calcium [Mass/Vol] 8.4 mg/dL Low 8.5-10.1 [facility] Comment on above: Performed By: #### L 500.11169, L500.33845, L500.82953, L500.87750, L500.01896 #### Test performed at: [address] [address] Chloride [Moles/Vol] 105 mmol/L Normal 98-107 [facility] Comment on above: Performed By: #### L 500.88736, L500.12803, L500.47771, L500.09916, L500.87651 #### Test performed at: [address] [address] CO2 [Moles/Vol] 23 mmol/L Normal 21-32 [facility] Comment on above: Performed By: #### L 500.68511, L500.43580, L500.79837, L500.64271, L500.34756 #### Test performed at: [address] [address] Creatinine [Mass/Vol] 0.890 mg/dL Normal 0.700-1.300 [facility] Comment on above: Performed By: #### L 500.48764, L500.16863, L500.13058, L500.20420, L500.44069 #### Test performed at: [address] [address] Glucose [Mass/Vol] 91 mg/dL Normal 70-99 [facility] Comment on above: Result Comment: Fast ing GLUCOSE reference range has been updated per (ADA) [place] [employer]'s recommendation. 12/16/2018 Performed By: #### L 500.71453, L500.12835, L500.99377, L500.77088, L500.74893 #### Test performed at: [address] [address] Potassium [Moles/Vol] 3.8 mmol/L Normal 3.5-5.1 [facility] Comment on above: Performed By: #### L 500.60203, L500.98252, L500.08449, L500.15368, L500.30488 #### Test performed at: [address] [address] Protein [Mass/Vol] 6.7 g/dL Normal 6.4-8.2 [facility] Comment on above: Performed By: #### L 500.36392, L500.54994, L500.24539, L500.55089, L500.75235 #### Test performed at: [address] [address] Sodium [Moles/Vol] 138 mmol/L Normal 136-145 [facility] Comment on above: Performed By: #### L 500.46442, L500.14894, L500.75585, L500.82990, L500.75467 #### Test performed at: [place] [address] [place] [id number] Urea nitrogen [Mass/Vol] 17 mg/dL Normal 7-18 [facility] Comment on above: Performed By: #### L 500.72899, L500.40113, L500.95002, L500.91972, L500.64974 #### Test performed at: [place] [address] [place] [id number] ED Provider Reporton 021 ED Provider Report [facility] Pt Name: HOSEA ALVAREZ MR#: [id number] [address] [place] [address] ACCT: [id number] : 72 EMERGENCY PROVIDER REPORT ADM Date: 02/09/21 ER Physician: Gordon Wade MD History of Present Illness Time Seen by [id number] Source of Information PATIENT Triage Complaint CHEST [...] the [facility] over the last 24 hours. The [...] (%) 52.1 Lymph % (Auto) (%) 35.9 Brown % (Auto) (%) 8.6 Eos % (Auto) (%) 2.4 Baso % (Auto) (%) 0.5 Neut # (Auto) (1.4 - 6.6 K/uL) 1.9 Lymph # (Auto) (1.2 - 3.5 K/uL) 1.3 Brown # (Auto) (0.0 - 1.0 K/uL) 0.3 [...] (Negative) NEGATIV (more content not included)... Normal [facility] EKGon 02-10-2021 Electrocardiogram Acquired on [...] PM Referred By: Confirmed By:NATIVIDAD POTTS MD [id number] 2020 [facility] PT NAME: HOSEA ALVAREZ MR#: [id number] [address] [place] [address] ACCT: [id number] : 72 EKG REPORT Normal [facility] GFR ESTIMATEon 02-10-2021 IF AMER > 60 Normal > 60 [facility] Comment on above: Result Comment: eGFR (Estimated GFR) Units of measure:mL/min/1.73 meters sq. *CALCULATION REVISED 07/12/2015;IDMS-traceable MDRD equation eGFR is derived from the reexpressed MDRD Study equation using the following parameters: serum creatinine, age, gender and race. An eGFR<60 mL/min/1.73m2 for >3 months is consistent with chronic kidney disease. Refer to KDOQI guidelines for clinical interpretation. Performed By: #### L 500.90332, L500.79047, L500.08177, L500.32583, L500.47619 #### Test performed at: [place] [address] IF non-AFR AMER > 60 Normal > 60 [facility] Comment on above: Performed By: #### L 500.69128, L500.29542, L500.28056, L500.74542, L500.45514 #### Test performed at: [place] [address] LIMIT UR TOXon 02-10-2021 UR AMPH Negative Normal Negative [facility] Comment on above: Result Comment: CUTO KK=4910 Performed By: #### L 600.02363 #### Test performed at: [place] [address] UR CIELO Negative Normal Negative [facility] Comment on above: Result Comment: CUTO NH=916 Performed By: #### L 600.51463 #### Test performed at: [place] [address] UR KAYA Negative Normal Negative [facility] Comment on above: Result Comment: CUTO TL=748 Performed By: #### L 600.02770 #### Test performed at: [place] [address] UR BUPREN/NORBU Negative Normal Negative [facility] Comment on above: Result Comment: CUTO FF=10 Performed By: #### L 600.77038 #### Test performed at: [place] [address] UR LULY/THC Negative Normal Negative [facility] Comment on above: Result Comment: CUTO FF=50 Performed By: #### L 600.12052 #### Test performed at: [place] [address] UR CHATO Negative Normal Negative [facility] Comment on above: Result Comment: CUTO ML=450 Performed By: #### L 600.38565 #### Test performed at: [place] [address] UR ECSTASY Negative Normal Negative [facility] Comment on above: Result Comment: CUTO WP=475 Performed By: #### L 600.84921 #### Test performed at: [place] [address] UR FENTANYL Negative Normal Negative [facility] Comment on above: Result Comment: CUTO XY=7745 Performed By: #### L 600.16208 #### Test performed at: [place] [address] UR METH Negative Normal Negative [facility] Comment on above: Result Comment: CUTO GO=772 Performed By: #### L 600.83049 #### Test performed at: [place] [address] UR OPIAT Negative Normal Negative [facility] Comment on above: Result Comment: CUTO EJ=070 Performed By: #### L 600.62470 #### Test performed at: [place] [address] UR OXYCODONE Negative Normal Negative [facility] Comment on above: Result Comment: CUTO OG=288 Performed By: #### L 600.18871 #### Test performed at: [place] [id number] UR PCP Negative Normal Negative [facility] Comment on above: Result Comment: CUTO FF=25 Performed By: #### L 600.50567 #### Test performed at: [place] [address] PH TOX 5.0 Normal 5.0-8.0 [facility] Comment on above: Performed By: #### L 600.98360 #### Test performed at: [place] [address] [address] TOX COMMENT *PLEASE NOTE: Normal [facility] Comment on above: Result Comment: [employer]IR[employer] Toxicology results. For MEDICAL purposes only. Performed By: #### L 600.95856 #### Test performed at: [address] [address] PORTABLE CHESTon 02-10-2021 PORTABLE CHEST STUDY: PORTABLE CHEST; 02/09/2021 11:25 pm INDICATION: CHEST PAIBN. COMPARISON: 02/08/2021 ACCESSION NUMBER(S): [id number] ORDERING CLINICIAN: Gordon Wade FINDINGS: The cardiomediastinal silhouette and pulmonary vasculature are within normal limits. No consolidation, pleural effusion, or pneumothorax. IMPRESSION: No acute cardiopulmonary process. Normal [facility] TROPONIN QUANTon 02-10-2021 TROPONIN I < 0.015 Normal 0.01-0.045 [facility] Comment on above: Performed By: #### L 500.93566, L500.16789, L500.76100, L500.02660, L500.16465 #### Test performed at: [address] [address] BASIC METABOLIC PANELon 01-21 Anion gap [Moles/Vol] 12 mmol/L Normal 10 - 20 [facility] Comment on above: Performed By: #### B MP #### [address] [address] Calcium [Mass/Vol] 9.5 mg/dL Normal 8.6 - 10.3 [facility] Comment on above: Performed By: #### B MP #### [address] [address] Chloride [Moles/Vol] 103 mmol/L Normal 98 - 107 [facility] Comment on above: Performed By: #### B MP #### [address] [address] Creatinine [Mass/Vol] 0.79 mg/dL Normal 0.50 - 1.30 [facility] Comment on above: Performed By: #### B MP #### [address] [address] GFR- AM. >60 Normal >60 [facility] Comment on above: Result Comment: CALC ULATIONS OF ESTIMATED GFR ARE PERFORMED USING THE MDRD STUDY EQUATION FOR THE IDMS-TRACEABLE CREATININE METHODS. CLIN CHEM 2007;53:766-72 Performed By: #### B MP #### [address] [address] GFR-NON AM. >60 Normal >60 [facility] Comment on above: Performed By: #### B MP #### [address] [address] Glucose [Mass/Vol] 95 mg/dL Normal 74 - 99 [facility] Comment on above: Performed By: #### B MP #### [address] [address] HCO3 (Bld) [Moles/Vol] 25 mmol/L Normal 21 - 32 [facility] Comment on above: Performed By: #### B MP #### [address] [address] Potassium [Moles/Vol] 4.0 mmol/L Normal 3.5 - 5.3 [facility] Comment on above: Performed By: #### B MP #### [address] [address] Sodium [Moles/Vol] 136 mmol/L Normal 136 - 145 [facility] Comment on above: Performed By: #### B MP #### [address] [address] Urea nitrogen [Mass/Vol] 16 mg/dL Normal 6 - 23 [facility] Comment on above: Performed By: #### B MP #### [address] [address] CBC AND DIFFERENTIALon 02-08 % AUTOMATED IMMATURE GRAN 0.2 % Normal 0.0 - 0.9 [facility] Comment on above: Result Comment: Kath ture Granulocyte Count (IG) includes promyelocytes, myelocytes and metamyelocytes but does not include bands. Percent differential counts (%) should be interpreted in the context of the absolute cell counts (cells/L). Performed By: #### C BCDF #### [address] [place] [address] Basophils (Bld) [#/Vol] 0.01 10*3/uL Normal 0.00 - 0.10 [facility] Comment on above: Performed By: #### C BCDF #### [address] [place] [address] Basophils/100 WBC (Bld) 0.2 % Normal 0.0 - 2.0 [facility] Comment on above: Performed By: #### C BCDF #### [address] [address] Eosinophils (Bld) [#/Vol] 0.01 10*3/uL Normal 0.00 - 0.70 [facility] Comment on above: Performed By: #### C BCDF #### [address] [place] [address] Eosinophils/100 WBC (Bld) 0.2 % Normal 0.0 - 6.0 [facility] Comment on above: Performed By: #### C BCDF #### [address] [place] [address] Erythrocyte distribution width (RBC) [Ratio] 12.3 % Normal 11.5 - 14.5 [facility] Comment on above: Performed By: #### C BCDF #### [address] [address] Hematocrit (Bld) [Volume fraction] 42.2 % Normal 41.0 - 52.0 [facility] Comment on above: Performed By: #### C BCDF #### [address] [place] [address] Hemoglobin (Bld) [Mass/Vol] 14.1 g/dL Normal 13.5 - 17.5 [facility] Comment on above: Performed By: #### C BCDF #### [address] [place] [address] Lymphocytes (Bld) [#/Vol] 0.89 10*3/uL Low 1.20 - 4.80 [facility] Comment on above: Performed By: #### C BCDF #### [facility] [address] [place] [address] Lymphocytes/100 WBC (Bld) 18.2 % Normal 13.0 - 44.0 [facility] Comment on above: Performed By: #### C BCDF #### [facility] [address] [place] [address] MCHC (RBC) [Mass/Vol] 33.4 g/dL Normal 32.0 - 36.0 [facility] Comment on above: Performed By: #### C BCDF #### [address] [place] [address] MCV (RBC) [Entitic vol] 85 fL Normal 80 - 100 [facility] Comment on above: Performed By: #### C BCDF #### [address] [place] [address] Monocytes (Bld) [#/Vol] 0.34 10*3/uL Normal 0.10 - 1.00 [facility] Comment on above: Performed By: #### C BCDF #### [address] [place] [address] Monocytes/100 WBC (Bld) 7.0 % Normal 2.0 - 10.0 [facility] Comment on above: Performed By: #### C BCDF #### [address] [place] [address] Neutrophils (Bld) [#/Vol] 3.63 10*3/uL Normal 1.20 - 7.70 [facility] Comment on above: Performed By: #### C BCDF #### [address] [place] [address] Neutrophils/100 WBC (Bld) 74.2 % Normal 40.0 - 80.0 [facility] Comment on above: Performed By: #### C BCDF #### [facility] [address] [place], [place] [address] [address] NUCLEATED RBC 0.0 /100 WBC Normal 0.0 - 0.0 [facility] Comment on above: Performed By: #### C BCDF #### [address] [place] [address] Platelets (Bld) [#/Vol] 197 10*3/uL Normal 150 - 450 [facility] Comment on above: Performed By: #### C BCDF #### [facility] [address] [place] [address] RBC 4.98 x10E12/L Normal 4.50 - 5.90 [facility] Comment on above: Performed By: #### C BCDF #### [facility] [address] [place] [address] WBC (Bld) [#/Vol] 4.9 10*3/uL Normal 4.4 - 11.3 [facility] Comment on above: Performed By: #### C BCDF #### [facility] [address] [place] [address] CHEST 1 VIEWon 02-08-2021 CHEST 1 VIEW Patient Name: HOSEA ALVAREZ STUDY: CHEST 1 VIEW; 02/08/2021 12:45 pm INDICATION: Chest Pain. COMPARISON: 02/02/2021 ACCESSION NUMBER(S): [id number] ORDERING CLINICIAN: RASHAUN DELGADILLO TECHNIQUE: Portable upright frontal view of the chest FINDINGS: Mediastinum is negative. Cardiac silhouette is enlarged. Lungs are clear. IMPRESSION: Lungs are clear. Electronically signed by: NORMA UP MD Normal [facility] Complete Blood Count + Diffe rentialon 02-08-2021 Basophils/100 WBC (Bld) 0.2 % 0.0 - 2.0 [facility] 200 Work Phone: Erythrocyte distribution width (RBC) [Ratio] 12.3 % See Below [facility] 200 Work Phone: Comment on above: Reference Range: 11. 5 - 14.5 Hematocrit (Bld) [Volume fraction] 42.2 % See Below [facility] 200 Work Phone: Comment on above: Reference Range: 41. 0 - 52.0 Hemoglobin (Bld) [Mass/Vol] 14.1 g/dL See Below [facility] 200 Work Phone: Comment on above: Reference Range: 13. 5 - 17.5 Lymphocytes/100 WBC (Bld) 18.2 % See Below [facility] 200 Work Phone: [phone] Comment on above: Reference Range: 13. 0 - 44.0 MCHC (RBC) [Mass/Vol] 33.4 g/dL See Below [facility] 200 Work Phone: Comment on above: Reference Range: 32. 0 - 36.0 MCV (RBC) [Entitic vol] 85 fL 80 - 100 [facility] 200 Work Phone: Monocytes/100 WBC (Bld) 7.0 % 2.0 - 10.0 [facility] 200 Work Phone: Neutrophils/100 WBC (Bld) 74.2 % See Below [facility] 200 Work Phone: Comment on above: Reference Range: 40. 0 - 80.0 Platelets (Bld) [#/Vol] 197 10*3/uL 150 - 450 [facility] 200 Work Phone: RBC (Bld) [#/Vol] 4.98 {x10E12/L} See Below [facility] 200 Work Phone: Comment on above: Reference Range: 4.5 0 - 5.90 WBC (Bld) [#/Vol] 4.9 10*3/uL 4.4 - 11.3 [facility] 200 Work Phone: Complete Blood Count + Differential 0.01 {x10E9/L} See Below [facility] 200 Work Phone: Comment on above: Reference Range: 0.0 0 - 0.10 Reference Range: 0.0 0 - 0.70 Complete Blood Count + Differential 0.34 {x10E9/L} See Below [facility] 200 Work Phone: Comment on above: Reference Range: 0.1 0 - 1.00 Complete Blood Count + Differential 0.89 {x10E9/L} below low threshold See Below [facility] Work Phone: Comment on above: Reference Range: 1.2 0 - 4.80 Complete Blood Count + Differential 3.63 {x10E9/L} See Below [employer] 200 Work Phone: Comment on above: Reference Range: 1.2 0 - 7.70 Complete Blood Count + Differential 0.2 % 0.0 - 0.9 [facility] Work Phone: Comment on above: Immature Granulocyte Count (IG) includes promyelocytes, myelocytes and metamyelocytes but does not include bands. Percent differential counts (%) should be interpreted in the context of the absolute cell counts (cells/L). Complete Blood Count + Differential 0.0 {/100_WBC} 0.0 - 0.0 [facility] Work Phone: Discharge Planning Nsmf5ou 0 02-08-2021 Discharge Planning Note2 Discharge Planning: Discharge DestinationHome Anticipated Discharge [id number] Discharge Planning 02/08/2021 @ 1115 Social Work [...] of [place], however, has recently moved to [place] and would like to work on having both [place] and [place] Medicaid. SW asked where pt is currently [...] I am entitled to be assigned a senior case manager to help me with whatever I [...] SW to follow as needed. MATEO Khan, PRIMARY CARE NURSE PRACTITIONER Assessment: Discharge Planning Assessment [id number] Electronic Signatures: Sugey Hutson (STONE) (Signed 08-Feb-2021 15:13) Authored: Discharge Planning, Assessment Last Updated: 08-Feb-2021 15:13 by Sugey Hutson ([facility]) Normal [facility] Laboratory - Chemistry and C hemistry - challengeon 02-08-2021 Anion gap [Moles/Vol] 12 mmol/L 10 - 20 MP- Cardiology -[place] [facility] 200 Work Phone: Calcium [Mass/Vol] 9.5 mg/dL 8.6 - 10.3 MP-Car diology -[place] [facility] 200 Work Phone: Chloride [Moles/Vol] 103 mmol/L 98 - 107 MP-C ardiology -[place] [facility] 200 Work Phone: [phone] CO2 [Moles/Vol] 25 mmol/L 21 - 32 MP-Cardio logy -[place] [facility] 200 Work Phone: [phone] Creatinine [Mass/Vol] 0.79 mg/dL See Below - Cardiology -[place] [facility] 200 Work Phone: Comment on above: Reference Range: 0.5 0 - 1.30 Glucose [Mass/Vol] 95 mg/dL 74 - 99 -Car [employer] -[place] 200 Work Phone: [phone] Potassium [Moles/Vol] 4.0 mmol/L 3.5 - 5.3 - Cardiology -[place] 200 Work Phone: Sodium [Moles/Vol] 136 mmol/L 136 - 145 -Car [employer] -[place] 200 Work Phone: Urea nitrogen [Mass/Vol] 16 mg/dL 6 - 23 [facility] 200 Work Phone: No Panel Informationon 02-08 >60 >60 [facility] -[place] [facility] 200 Work Phone: Comment on above: CALCULATIONS OF NIKOLE MATED GFR ARE PERFORMED USING THE MDRD STUDY EQUATION FOR THE IDMS-TRACEABLE CREATININE METHODS. CLIN CHEM 2007;53:766-72 [email or web address] [email or web address] ll?RetrieveTestByDateTim e?KbnddxsJO=[id number]&Da te=08-02-2021&Time=11%3a 45%3a50%3a00&TestType=EC G&Site=10&OutputType=PDF &Ext=PDF -Cardiology -[place] [facility] 200 Work Phone: [phone] Sinus rhythm -Cardiolog y -[facility] 200 Work Phone: [phone] Normal -Cardiology -[place] [facility] 200 Work Phone: [phone] -[facility] 200 Work Phone: [phone] -[employer] 200 Work Phone: [phone] MP-Cardiology -[place] [facility] 200 Work Phone: [phone] MP-Cardiology -[place] [facility] 200 Work Phone: [phone] 1 MP-Cardiology -[place] [facility] 200 Work Phone: [phone] [...] [facility] 200 Work Phone: [phone] MP-Cardiology -[place] [facility] 200 Work Phone: [phone] Provider Note - ED v2on 05- [...] a d (more content not included)... Normal [facility] Provider Note - ED v2 [...] orally onc (more content not included)... Normal [facility] Radiologyon 02-08-2021 XR Chest Single view Normal MP-C ardiology -[place] [facility] 200 Work Phone: Risk Screen - Adult Emergenc yon 02-08-2021 Risk Screen - Adult Emergency Preferred Language: Preferred Language: Preferred Language for Discussing Health Care (patient/designee)Fran carver Advanced Directives: Advance Directive/DNRyes Advance Directive typeDurable Power of Lean Leader for Healthcare Durable Power of Lean Leader AvailabilityDPOA not available now Family Violence Adult: Abuse Screen: Are you or have you been threatened or abused physically, emotionally, or sexually by anyoneno Learning Assessment (Patient): Learning Assessment (Patient): Patient is Able to be Assessed for Learningyes Factors Influencing Readiness to Learnnone Factors that Impact Ability to Learnnone Devices/Methods Used to Communicatenone Learning Preferencesverbal instruction; written material Cultural Considerationsnone Developmental Considerationsnone Presybeterian Considerationsnone Learning Assessment (Other Learner): Learning Assessment (Other Learner): Other learner availableno Pressure Injury/TB/Substance: Pressure Injury: Pressure Injury Present on Admissionno Do you have a coughno Substance Use Current or Former Historynever: Cigarette/Tobacco, e-Cigarette/Vaping, Street Drugs YES: Alcohol Alcohol Usedaily Alcohol Use Additional Comments1 beer Admission Risk Screen: Significant IndicatorsComplete CAGE: CAGE: Is this an injured patient at a Trauma Center ([facility]): no Electronic Signatures: Irma Dias ([place]) (Signed 08-Feb-2021 12:14) Authored: Preferred Language, Advanced Directives, Family Violence Adult, Learning Assessment (Patient), Learning Assessment (Other Learner), Pressure Injury/TB/Substance, Pressure Injury, CAGE Last Updated: 08-Feb-2021 12:14 by Irma Dias ([place]) Normal [facility] TROPONIN Ion 02-08-2021 Troponin I.cardiac [Mass/Vol] ng/mL Normal 0.00 - 0.03 [facility] Comment on above: Result [...] is performed using different testing methodology at [facility] than at other [facility] [facility] [facility]. Direct result comparisons should only be made within the same method. Performed By: #### T ROP2 #### [facility] [address] [place] [address] Triage - EDon 02-08-2021 Triage - ED Chart Review: ARRIVAL INFORMATION Mode of Arrival: ambulance Agency: City Agency Name: [facility] CHIEF COMPLAINT HOSEA ALVAREZ is a [...] obeys commands Best Verbal Response: (V5) oriented [place] Score: 15 Cough lasting greater than 3 [...] 08-Feb-2021 08:03 by Nessa Romero ([place]) Normal [facility] Troponin I, Serumon 02-09-20 21 Troponin I.cardiac [Mass/Vol] ng/mL See Below -Cardiology -[place] [facility] 200 Work Phone: Comment on above: [...] is performed using different testing methodology at [facility] than at other [facility] [facility] [facility]. Direct result comparisons should only be made within the same method. JANENE TITER/EARL PANELon 2020 ANTI-CENTROMERE <0.[address] [facility] Comment on above: Result Comment: REF VALUES < 1.0 = NEGATIVE >=1.0 = POSITIVE Performed By: #### E NAP2 ####[id number] [place] [address] ANTI-CHROMATIN 0.[address] [facility] Comment on above: Result Comment: REF VALUES < 1.0 = NEGATIVE >=1.0 = POSITIVE Performed By: #### E NAP2 ####[id number] [place] [address] ANTI-DNA [DS] 1.0 IU/mL Normal [facility] Comment on above: Result Comment: REF VALUES NEGATIVE: <= 4 IU/ML EQUIVOCAL: 5- 9 IU/ML POSITIVE: >=10 IU/ML Performed By: #### E NAP2 ####[id number] [place] [address] ANTI-SHIVANI-[address] <[address] [facility] Comment on above: Result Comment: REF VALUES < 1.0 = NEGATIVE >=1.0 = POSITIVE Performed By: #### E NAP2 ####[id number] [place] [address] ANTI-RIBOSOMAL P <0.[address] [facility] Comment on above: Result Comment: REF VALUES < 1.0 = NEGATIVE >=1.0 = POSITIVE Performed By: #### E NAP2 ####[id number] [place] [address] ANTI-COMMUNICATION CENTER COORDINATOR <0.[address] [facility] Comment on above: Result Comment: REF VALUES < 1.0 = NEGATIVE >=1.0 = POSITIVE Performed By: #### E NAP2 ####[id number] [place] [address] ANTI-SCL-[address] <0[address] [facility] Comment on above: Result Comment: REF VALUES < 1.0 = NEGATIVE >=1.0 = POSITIVE Performed By: #### E NAP2 ####[id number] [place] [address] ANTI-SM <0.[address] [facility] Comment on above: Result Comment: REF VALUES < 1.0 = NEGATIVE >=1.0 = POSITIVE Performed By: #### E NAP2 ####[id number] [place] [address] ANTI-SM/COMMUNICATION CENTER COORDINATOR <0.[address] [facility] Comment on above: Result Comment: REF VALUES < 1.0 = NEGATIVE >=1.0 = POSITIVE Performed By: #### E NAP2 ####[id number] [place] [address] ANTI-SSA <0.[address] [facility] Comment on above: Result Comment: REF VALUES < 1.0 = NEGATIVE >=1.0 = POSITIVE Performed By: #### E NAP2 ####[id number] [place] [address] ANTI-SSB <0.[address] [facility] Comment on above: Result Comment: REF VALUES < 1.0 = NEGATIVE >=1.0 = POSITIVE Performed By: #### E NAP2 ####[id number] [place] [address] JANENE PATTERN SPECKLED Normal [facility] Comment on above: Performed By: #### E NAP2 ####[id number] [address] JANENE TITER 1:[address] [facility] Comment on above: Performed By: #### E NAP2 ####[id number] [place] [address] JANENE-WITH REFLEX TO ENAon JANENE WITH REFLEX TO EARL Positive Invalid Interpretation Code NEGATIVE [facility] Comment on above: Result Comment: The Antinuclear Antibody (JANENE) test was performed using indirect immunofluorescence assay with HEp-2 cells slide. Performed By: #### A NA2 ####[id number] [place] [address] C Reactive Protein, Serumon 02-05-2021 CRP [Mass/Vol] 0.13 mg/dL -Cardiol [facility] -[facility] 200 Work Phone: Comment on above: REF VALUE< 1.00 Complete Blood Count + Diffe rentialon 02-05-2021 Erythrocyte distribution width (RBC) [Ratio] 12.5 % See Below -Cardiology -[facility] 200 Work Phone: Comment on above: Reference Range: 11. 5 - 14.5 Hematocrit (Bld) [Volume fraction] 38.4 % below low threshold See Below -Cardiology -[place] [facility] 200 Work Phone: Comment on above: Reference Range: 41. 0 - 52.0 Hemoglobin (Bld) [Mass/Vol] 12.9 g/dL below low threshold See Below [facility] [facility] 200 Work Phone: Comment on above: Reference Range: 13. 5 - 17.5 Lymphocytes/100 WBC (Bld) 7.8 % See Below [facility] 200 Work Phone: Comment on above: Reference Range: 13. 0 - 44.0 MCHC (RBC) [Mass/Vol] 33.6 g/dL See Below [facility] 200 Work Phone: Comment on above: Reference Range: 32. 0 - 36.0 MCV (RBC) [Entitic vol] 84 fL 80 - 100 [facility] 200 Work Phone: Monocytes/100 WBC (Bld) 2.1 % 2.0 - 10.0 [facility] 200 Work Phone: Neutrophils/100 WBC (Bld) 89.8 % See Below [facility] 200 Work Phone: Comment on above: Reference Range: 40. 0 - 80.0 Platelets (Bld) [#/Vol] 188 10*3/uL 150 - 450 [facility] 200 Work Phone: RBC (Bld) [#/Vol] 4.59 {x10E12/L} See Below [facility] 200 Work Phone: Comment on above: Reference Range: 4.5 0 - 5.90 WBC (Bld) [#/Vol] 6.8 10*3/uL 4.4 - 11.3 -Car diology -[facility] 200 Work Phone: Complete Blood Count + Differential 0.14 {x10E9/L} See Below [facility] 200 Work Phone: Comment on above: Reference Range: 0.1 0 - 1.00 Complete Blood Count + Differential 0.53 {x10E9/L} below low threshold See Below [facility] 200 Work Phone: Comment on above: Reference Range: 1.2 0 - 4.80 Complete Blood Count + Differential 6.10 {x10E9/L} See Below [place] [address] Work Phone: Comment on above: Reference Range: 1.2 0 - 7.70 Complete Blood Count + Differential 0.3 % 0.0 - 0.9 [place] [address] Work Phone: Comment on above: Immature Granulocyte Count (IG) includes promyelocytes, myelocytes and metamyelocytes but does not include bands. Percent differential counts (%) should be interpreted in the context of the absolute cell counts (cells/L). Laboratory - Chemistry and C hemistry - challengeon 02-05-2021 Albumin BCP dye [Mass/Vol] 4.6 g/dL 3.4 - 5.0 [place] [address] Work Phone: ALP [Catalytic activity/Vol] 45 U/L 33 - 120 [place] [address] Work Phone: ALT With P-5'-P [Catalytic activity/Vol] 14 U/L 10 - 52 [place] [address] Work Phone: Comment on above: Patients treated wit h Sulfasalazine may generate falsely decreased results for ALT. Anion gap [Moles/Vol] 13 mmol/L 10 - 20 [place] [address] Work Phone: AST With P-5'-P [Catalytic activity/Vol] 14 U/L 9 - 39 [place] [address] Work Phone: Bilirubin [Mass/Vol] 0.4 mg/dL 0.0 - 1.2 -C ardiology -[facility] [place] 200 Work Phone: Calcium [Mass/Vol] 9.8 mg/dL 8.6 - 10.3 -Car diology [facility] 200 Work Phone: Chloride [Moles/Vol] 104 mmol/L 98 - 107 -C ardiology -[place] [facility] 200 Work Phone: CO2 [Moles/Vol] 27 mmol/L 21 - 32 MP-Cardio logy -[place] [facility] 200 Work Phone: Creatinine [Mass/Vol] 0.90 mg/dL See Below [facility] Cardiology -[place] [employer] 200 Work Phone: [phone] Comment on above: Reference Range: 0.5 0 - 1.30 Glucose [Mass/Vol] 135 mg/dL above high threshold 74 - 99 -Cardiology -[place] [employer] 200 Work Phone: [phone] Potassium [Moles/Vol] 4.1 mmol/L 3.5 - 5.3 [facility] Cardiology -[place] [employer] 200 Work Phone: [phone] Protein [Mass/Vol] 7.5 g/dL 6.4 - 8.2 -[facility] 200 Work Phone: [phone] Sodium [Moles/Vol] 140 mmol/L 136 - 145 -Car diology -[facility] [place] 200 Work Phone: [phone] Urea nitrogen [Mass/Vol] 15 mg/dL 6 - 23 -Cardiology -[facility] [place] 200 Work Phone: [phone] No Panel Informationon 02-05 >60 >60 [facility] 200 Work Phone: Comment on above: CALCULATIONS OF NIKOLE MATED GFR ARE PERFORMED USING THE MDRD STUDY EQUATION FOR THE IDMS-TRACEABLE CREATININE METHODS. CLIN CHEM 2007;53:766-72 Sedimentation Rate, Erythroc yteon 02-05-2021 ESR (Bld) [Velocity] 22 mm/h above high threshold 0 - 10 [facility] [place] 200 Work Phone: CORONAVIRUS 2019 BY PCRon SARS-CoV-2 (COVID-19) RNA TATI+probe Ql (Unsp spec) Not detected Normal Not Detected [facility] Comment on above: Result Comment: . This assay is designed to detect the RdRp gene of SARS-CoV-2 via nucleic acid amplification. A Not Detected result does not preclude COVID-19 infection since the adequacy of sample collection and/or low viral burden may result in presence of viral nucleic acids below the clinical sensitivity of this test method. Fact sheet for providers: www.fda.gov/media/266476/download Fact sheet for patients: www.fda.gov/media/283785/download This test has received FDA Emergency Use Authorization (EUA) and has been verified by [facility] ([facility] This test is only authorized for the duration of time that circumstances exist to justify the authorization of the emergency use of in vitro diagnostic tests for the detection of SARS-CoV-2 virus and/or diagnosis of COVID-19 infection under section 564(b)(1) of the Act, 21 U.S.C. 360bbb-3(b)(1), unless the authorization is terminated or revoked sooner. [facility] is certified under CLIA-88 as qualified to perform high complexity testing. Testing is performed in the [facility] laboratories located at [address] [place] [address]. Performed By: #### C OV19 ####[facility] [id number] [place] [address] CT Head without Contraston 0 02-03-2021 CT Head limited WO contrast Normal [facility] Work Phone: Covid 19 Resultson 1 [...] You may also be contacted by the [facility] to see if any [...] or Naproxen (Aleve) can also be used. Jkgl-dim-wtclixz cough and cold medicines can be used according to the instructions on the package. Some knsu-yzq-csbmmfp medicines also contain acetaminophen. Make sure you [...] water are not available, use alcohol-based hand transit worker. Avoid touching your eyes, nose, and mouth [...] 24 guerline (more content not included)... Normal [facility] Laboratory - Serology - non- microon 02-03-2021 Centromere protein B Ab Qn (S) <0.2 [employer] 200 Work Phone: Comment on above: REF VALUES < 1.0 = N EGATIVE >=1.0 = POSITIVE Chromatin Ab Qn 0.5 {AI} DepositphotosCardio Angelfish 200 Work Phone: Comment on above: REF VALUES < 1.0 = N EGATIVE >=1.0 = POSITIVE DNA double strand Ab Qn (S) 1.0 [IU]/mL [employer] 200 Work Phone: [phone] Comment on above: REF VALUESNEGATIVE: <= 4 IU/MLEQUIVOCAL: 5- 9 IU/MLPOSITIVE: >=10 IU/ML Shivani-1 extractable nuclear Ab IA Ql (S) <0.2 [employer]Net[employer] Look [employer] 200 Work Phone: [phone] Comment on above: REF VALUES < 1.0 = N EGATIVE >=1.0 = POSITIVE Nuclear Ab Hep2 substrate Ql (S) Positive Abnormal NEGATIVE Sharecarela[employer] Look [employer] Work Phone: [phone] Comment on above: The Antinuclear Anti body (JANENE) test was performed using indirect immunofluorescence assay with HEp-2 cells slide. Nuclear Ab IF (S) [Titer] 1:40 [employer] Work Phone: [phone] Nuclear Ab pattern (S) [Interp] SPECKLED SharecarelaFirst Look [employer] PolyActiva Work Phone: [phone] Ribonucleoprotein extractable nuclear Ab IA Qn (S) <0.2 [employer] 200 Work Phone: [phone] Comment on above: REF VALUES < 1.0 = N EGATIVE >=1.0 = POSITIVE Ribosomal P Ab Qn (S) <0.2 [employer]Fogla[employer] Look [employer] 200 Work Phone: [phone] Comment on above: REF VALUES < 1.0 = N EGATIVE >=1.0 = POSITIVE SCL-70 extractable nuclear Ab IA Ql (S) <0.2 [employer] 200 Work Phone: Comment on above: REF VALUES < 1.0 = N EGATIVE >=1.0 = POSITIVE Sjogrens syndrome-A extractable nuclear Ab IA Qn (S) <0.2 [employer] 200 Work Phone: Comment on above: REF VALUES < 1.0 = N EGATIVE >=1.0 = POSITIVE Sjogrens syndrome-B extractable nuclear Ab IA Qn (S) <0.2 [facility] [facility] 200 Work Phone: Comment on above: REF VALUES < 1.0 = N EGATIVE >=1.0 = POSITIVE [place] extractable nuclear Ab IA Qn (S) <0.2 [facility] -[place] [facility] 200 Work Phone: Comment on above: REF VALUES < 1.0 = N EGATIVE >=1.0 = POSITIVE [place] extractable nuclear Ab+Ribonucleoprotein extractable nuclear Ab IA Ql (S) <0.2 [facility] [facility] 200 Work Phone: Comment on above: REF VALUES < 1.0 = N EGATIVE >=1.0 = POSITIVE No Panel Informationon 02-03 [email or web address]?RetrieveTestByDateTim e?PmciymsKO=[id number]&Da te=03-02-2021&Time=05%3a 07%3a18%3a00&TestType=EC G&Site=2&OutputType=PDF& Ext=PDF [facility] [facility] 200 Work Phone: [phone] Sinus bradycardia [facility] -[place] [facility] 200 Work Phone: [phone] Borderline Abnormal MP-Ca rdiology -[place] [facility] 200 Work Phone: [phone] [facility] [facility] 200 Work Phone: [phone] [facility] [facility] 200 Work Phone: [phone] [facility] [facility] 200 Work Phone: [phone] [facility] [facility] 200 Work Phone: [phone] [facility] [facility] 200 Work Phone: [phone] [facility] [facility] 200 Work Phone: [phone] [facility] [facility] 200 Work Phone: [phone] 1 [facility] [facility] 200 Work Phone: [phone] [facility] [facility] 200 Work Phone: [phone] [facility] [facility] 200 Work Phone: [phone] [facility] [facility] 200 Work Phone: [phone] [facility] [facility] 200 Work Phone: [phone] [facility] [facility] 200 Work Phone: [phone] [facility] [facility] 200 Work Phone: Please click on the link to view the study images Normal [facility] [facility] 200 Work Phone: [email or web address]?RetrieveTestByDateTim e?CnqtcoeET=[id number]&Da te=03-02-2021&Time=02%3a 56%3a24%3a00&TestType=EC G&Site=2&OutputType=PDF& Ext=PDF [facility] [facility] 200 Work Phone: Please see ED Provid er Note for formal interpretation [facility] [facility] 200 Work Phone: Normal [facility] [facility] 200 Work Phone: [phone] [facility] [facility] 200 Work Phone: [phone] [facility] [facility] 200 Work Phone: [phone] [facility] [facility] 200 Work Phone: [phone] 1 [facility] [facility] 200 Work Phone: [phone] [facility] [facility] 200 Work Phone: 12 1 [facility] [facility] 200 Work Phone: -[phone] 1 [facility] [facility] 200 Work Phone: [phone] [facility] [facility] 200 Work Phone: [phone] [facility] [facility] 200 Work Phone: [phone] [facility] [facility] 200 Work Phone: [phone] [facility] [facility] 200 Work Phone: [phone] 1 [facility] [facility] 200 Work Phone: [phone] [facility] [facility] 200 Work Phone: [phone] [facility] [facility] 200 Work Phone: [phone] Provider Note - ED v2on 05- [...] 50 mg (more content not included)... Normal [facility] Provider Note - ED v2 [...] of hard stool. He was seen at [facility] earlier today. Denied previous CAD, hyperlipidemia, diabetes, [...] states that he was seen at the [facility] and was diagnosed with a thoracic [...] Erythromycin Base (more content not included)... Normal [facility] TH CT ANGIO CHESTon 02-04-20 CT ANGIO CHEST STUDY: CT Angiogram of the Chest; 02/02/2021 at 10:30 PM INDICATION: Chest pain, back pain. 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 COMPARISON: CTA chest 01/29/21. XR chest 02/02/21, 02/01/21. ACCESSION NUMBER(S): [id number] ORDERING CLINICIAN: ALBINA LOPEZ PA-C TECHNIQUE: CTA [...] signed by: KAY RODRÍGUEZ MD, PHD Normal [facility] TROPONIN Ion 02-03-2021 Troponin I.cardiac [Mass/Vol] ng/mL Normal 0.00 - 0.03 [facility] Comment on above: Result Comment: [...] is performed using different testing methodology at [facility] than at other [place] [facility]. Direct result comparisons should only be made within the same method. Performed By: #### T ROP2 ####[facility] [id number] [place] [address] Triage - EDon 02-03-2021 Triage - ED [...] From Triage - ED 02-Feb-2021 19:[address] [facility] CBC AND DIFFERENTIALon 02-02 % AUTOMATED IMMATURE GRAN 0.3 % Normal 0.0 - 0.9 [facility] Comment on above: Result Comment: Kath ture Granulocyte Count (IG) includes promyelocytes, myelocytes and metamyelocytes but does not include bands. Percent differential counts (%) should be interpreted in the context of the absolute cell counts (cells/L). Performed By: #### C BCDF ####[facility] [id number] [place] [address] Basophils (Bld) [#/Vol] 0.02 10*3/uL Normal 0.00 - 0.10 [facility] Comment on above: Performed By: #### C BCDF ####[facility] [id number] [place] [address] Basophils/100 WBC (Bld) 0.7 % Normal 0.0 - 2.0 [facility] Comment on above: Performed By: #### C BCDF ####[facility] [id number] [place] [address] Eosinophils (Bld) [#/Vol] 0.06 10*3/uL Normal 0.00 - 0.70 [facility] Comment on above: Performed By: #### C BCDF ####[facility] [id number] [place] [address] Eosinophils/100 WBC (Bld) 2.0 % Normal 0.0 - 6.0 [facility] Comment on above: Performed By: #### C BCDF ####[facility] [id number] [place] [address] Erythrocyte distribution width (RBC) [Ratio] 12.4 % Normal 11.5 - 14.5 [facility] Comment on above: Performed By: #### C BCDF ####[facility] [id number] [place] [address] Hematocrit (Bld) [Volume fraction] 39.2 % Low 41.0 - 52.0 [facility] Comment on above: Performed By: #### C BCDF ####[facility] [id number] [place] [address] Hemoglobin (Bld) [Mass/Vol] 13.0 g/dL Low 13.5 - 17.5 [facility] Comment on above: Performed By: #### C BCDF ####[facility] [id number] [place] [address] Lymphocytes (Bld) [#/Vol] 1.06 10*3/uL Low 1.20 - 4.80 [facility] Comment on above: Performed By: #### C BCDF ####[facility] [id number] [place] [address] Lymphocytes/100 WBC (Bld) 35.7 % Normal 13.0 - 44.0 [facility] Comment on above: Performed By: #### C BCDF ####[facility] [id number] [place] [address] MCHC (RBC) [Mass/Vol] 33.2 g/dL Normal 32.0 - 36.0 [facility] Comment on above: Performed By: #### C BCDF ####[facility] [id number] [place] [address] MCV (RBC) [Entitic vol] 85 fL Normal 80 - 100 [facility] Comment on above: Performed By: #### C BCDF ####[facility] [id number] [place] [address] Monocytes (Bld) [#/Vol] 0.31 10*3/uL Normal 0.10 - 1.00 [facility] Comment on above: Performed By: #### C BCDF ####[facility] [id number] [place] [address] Monocytes/100 WBC (Bld) 10.4 % Normal 2.0 - 10.0 [facility] Comment on above: Performed By: #### C BCDF ####[facility] [id number] [place] [address] Neutrophils (Bld) [#/Vol] 1.51 10*3/uL Normal 1.20 - 7.70 [facility] Comment on above: Performed By: #### C BCDF ####[facility] [id number] [place] [address] Neutrophils/100 WBC (Bld) 50.9 % Normal 40.0 - 80.0 [facility] Comment on above: Performed By: #### C BCDF ####[facility] [id number] [place] [address] Platelets (Bld) [#/Vol] 173 10*3/uL Normal 150 - 450 [facility] Comment on above: Performed By: #### C BCDF ####[facility] [id number] [place] [address] RBC 4.62 x10E12/L Normal 4.50 - 5.90 [facility] Comment on above: Performed By: #### C BCDF ####[facility] [id number] [place] [address] WBC (Bld) [#/Vol] 3.0 10*3/uL Low 4.4 - 11.3 [facility] Comment on above: Performed By: #### C BCDF ####[facility] [id number] [place] [address] CHEST 1 VIEWon 02-02-2021 CHEST 1 VIEW STUDY: Chest Radiograph; 02/02/2021, 9:14 PM INDICATION: Chest pain. COMPARISON: CXR 02/01/2021. ACCESSION NUMBER(S): [id number] ORDERING CLINICIAN: ALBINA LOPEZ PA-C TECHNIQUE: Frontal chest was obtained at 21:14 hours. FINDINGS: CARDIOMEDIASTINAL SILHOUETTE: Cardiomediastinal silhouette is normal in size and configuration. LUNGS: Lungs are clear. ABDOMEN: No remarkable upper abdominal findings. BONES: No acute osseous changes. IMPRESSION: Clear lungs. Normal heart size. No significant change. Signed by Polly Collazo MD Electronically signed by: POLLY COLLAZO MD Normal [facility] COMPREHENSIVE PANELon 2020 Albumin [Mass/Vol] 4.2 g/dL Normal 3.4 - 5.0 [facility] Comment on above: Performed By: #### C MP ####[facility] [id number] [place] [address] ALP [Catalytic activity/Vol] 48 U/L Normal 33 - 120 [facility] Comment on above: Performed By: #### C MP ####[facility] [id number] [place] [address] ALT [Catalytic activity/Vol] 15 U/L Normal 10 - 52 [facility] Comment on above: Result Comment: Yanni ents treated with Sulfasalazine may generate falsely decreased results for ALT. Performed By: #### C MP ####[facility] [id number] [place] [address] Anion gap [Moles/Vol] 13 mmol/L Normal 10 - 20 [facility] Comment on above: Performed By: #### C MP ####[facility] [id number] [place] [address] AST [Catalytic activity/Vol] 15 U/L Normal 9 - 39 [facility] Comment on above: Performed By: #### C MP ####[facility] [id number] [place] [address] Bilirubin [Mass/Vol] 0.5 mg/dL Normal 0.0 - 1.2 [facility] [place] Comment on above: Performed By: #### C MP ####[facility] [id number] [place] [address] Calcium [Mass/Vol] 9.1 mg/dL Normal 8.6 - 10.3 [facility] Comment on above: Performed By: #### C MP ####[facility] [id number] [place] [address] Chloride [Moles/Vol] 103 mmol/L Normal 98 - 107 [facility] [place] Comment on above: Performed By: #### C MP ####[facility] [id number] [place] [address] Creatinine [Mass/Vol] 0.85 mg/dL Normal 0.50 - 1.30 [facility] Comment on above: Performed By: #### C MP ####[facility] [id number] [place] [address] GFR- AM. >60 Normal >60 [facility] Comment on above: Result Comment: CALC ULATIONS OF ESTIMATED GFR ARE PERFORMED USING THE MDRD STUDY EQUATION FOR THE IDMS-TRACEABLE CREATININE METHODS. CLIN CHEM 2007;53:766-72 Performed By: #### C MP ####[facility] [id number] [place] [address] GFR-NON AM. >60 Normal >60 [facility] Comment on above: Performed By: #### C MP ####[facility] [id number] [place] [address] Glucose [Mass/Vol] 95 mg/dL Normal 74 - 99 [facility] Comment on above: Performed By: #### C MP ####[facility] [id number] [place] [address] HCO3 (Bld) [Moles/Vol] 26 mmol/L Normal 21 - 32 [facility] Comment on above: Performed By: #### C MP ####[facility] [id number] [place] [address] Potassium [Moles/Vol] 3.6 mmol/L Normal 3.5 - 5.3 [facility] Comment on above: Performed By: #### C MP ####[facility] [id number] [place] [address] Protein [Mass/Vol] 6.7 g/dL Normal 6.4 - 8.2 [facility] Comment on above: Performed By: #### C MP ####[facility] [id number] [place] [address] Sodium [Moles/Vol] 138 mmol/L Normal 136 - 145 [facility] Comment on above: Performed By: #### C MP ####[facility] [id number] [place] [address] Urea nitrogen [Mass/Vol] 10 mg/dL Normal - [facility] Comment on above: Performed By: #### C MP ####[facility] [id number] [place] [address] CORONAVIRUS 2019 BY PCRon DATE OF SYMPTOM ONSET [YYYYMMDD]? [id number] Normal [facility] Comment on above: Performed By: #### C OV19 ####[facility] [id number] [place] [address] Lab Specimen Source Nasal, Nasopharyngeal Normal [facility] Comment on above: Performed By: #### C OV19 ####[facility] [id number] [place] [address] CT Angio Cheston 02-02-2021 CTA Chest vessels Normal [facility] iolprovidence healthPuneet [facility] 200 Work Phone: Complete Blood Count + Diffe rentialon 02-02-2021 Basophils/100 WBC (Bld) 0.7 % 0.0 - 2.0 [facility] 200 Work Phone: Erythrocyte distribution width (RBC) [Ratio] 12.4 % See Below [facility] 200 Work Phone: Comment on above: Reference Range: 11. 5 - 14.5 Hematocrit (Bld) [Volume fraction] 39.2 % below low threshold See Below [facility] 200 Work Phone: Comment on above: Reference Range: 41. 0 - 52.0 Hemoglobin (Bld) [Mass/Vol] 13.0 g/dL below low threshold See Below [facility] 200 Work Phone: Comment on above: Reference Range: 13. 5 - 17.5 Lymphocytes/100 WBC (Bld) 35.7 % See Below [facility] 200 Work Phone: Comment on above: Reference Range: 13. 0 - 44.0 MCHC (RBC) [Mass/Vol] 33.2 g/dL See Below [facility] [place] [facility] Work Phone: Comment on above: Reference Range: 32. 0 - 36.0 MCV (RBC) [Entitic vol] 85 fL 80 - 100 [facility] 200 Work Phone: Monocytes/100 WBC (Bld) 10.4 % 2.0 - 10.0 [facility] [place] 200 Work Phone: Neutrophils/100 WBC (Bld) 50.9 % See Below [facility] 200 Work Phone: Comment on above: Reference Range: 40. 0 - 80.0 Platelets (Bld) [#/Vol] 173 10*3/uL 150 - 450 [facility] [place] 200 Work Phone: RBC (Bld) [#/Vol] 4.62 {x10E12/L} See Below [facility]HEALTHSocial[facility] 200 Work Phone: Comment on above: Reference Range: 4.5 0 - 5.90 WBC (Bld) [#/Vol] 3.0 10*3/uL below low threshold 4.4 - 11.3 [facility] 200 Work Phone: Complete Blood Count + Differential 0.02 {x10E9/L} See Below [facility] 200 Work Phone: Comment on above: Reference Range: 0.0 0 - 0.10 Complete Blood Count + Differential 0.06 {x10E9/L} See Below [facility] 200 Work Phone: Comment on above: Reference Range: 0.0 0 - 0.70 Complete Blood Count + Differential 0.31 {x10E9/L} See Below [facility] [place] 200 Work Phone: Comment on above: Reference Range: 0.1 0 - 1.00 Complete Blood Count + Differential 1.06 {x10E9/L} below low threshold See Below [place] [address] Work Phone: Comment on above: Reference Range: 1.2 0 - 4.80 Complete Blood Count + Differential 1.51 {x10E9/L} See Below [facility] 200 Work Phone: Comment on above: Reference Range: 1.2 0 - 7.70 Complete Blood Count + Differential 2.0 % 0.0 - 6.0 [facility] 200 Work Phone: Complete Blood Count + Differential 0.3 % 0.0 - 0.9 [place] [address] Work Phone: Comment on above: Immature Granulocyte Count (IG) includes promyelocytes, myelocytes and metamyelocytes but does not include bands. Percent differential counts (%) should be interpreted in the context of the absolute cell counts (cells/L). Coronavirus 2019 RNA by PCR, Symptomaticon 02-02-2021 Date and time of symptom onset 20210202 1 [facility] [employer] Work Phone: Coronavirus 2019 RNA by PCR, Symptomatic Not detected Normal See Below [facility] [employer] Work Phone: Comment on above: SOURCE: Nasal, [...] this test method. Fact sheet for providers: www.fda.gov/media/711442/downloadFact sheet for patients: www.fda.gov/media/905185/downloadThis test has received FDA Emergency Use Authorization (EUA) and has been verified by [facility] ([facility] [place] This test is only authorized for the duration of time that circumstances exist to justify the authorization of the emergency use of in vitro diagnostic tests for the detection of SARS-CoV-2 virus and/or diagnosis of COVID-19 infection under section 564(b)(1) of the Act, 21 U.S.C. 360bbb-3(b)(1), unless the authorization is terminated or revoked sooner. [facility] is certified under CLIA-88 as qualified to perform high complexity testing. Testing is performed in the [facility] laboratories located at [address] [place] [address]. EMR ADDONon 02-02-2021 ADDON CONFIRMATION Canceled Normal [facility] Comment on above: Order Comment: TEST EMR ADDON WAS CANCELLED, 02/02/2021 21:41 Testing already performed.. Performed By: #### E MRAD ####[facility] [id number] [place] [id number] LIPASEon 02-02-2021 Lipase [Catalytic activity/Vol] 16 U/L Normal 9 - 82 [facility] Comment on above: Result Comment: Jocelyn puncture immediately after or during the administration of Metamizole may lead to falsely low results. Testing should be performed immediately prior to Metamizole dosing. E-menrrt-h-benzoquinone imine (metabolite of Acetaminophen) will generate erroneously low results in samples for patients that have taken toxic doses of acetaminophen. Performed By: #### L IPAS ####[facility] [id number] [place] [id number] Laboratory - Chemistry and C hemistry - challengeon 02-02-2021 Albumin BCP dye [Mass/Vol] 4.2 g/dL 3.4 - 5.0 [facility] -[facility] 200 Work Phone: ALP [Catalytic activity/Vol] 48 U/L 33 - 120 -Cardiology -[place] [facility] 200 Work Phone: ALT With P-5'-P [Catalytic activity/Vol] 15 U/L 10 - 52 -Cardiology eDosseaW 200 Work Phone: Comment on above: Patients treated wit h Sulfasalazine may generate falsely decreased results for ALT. Anion gap [Moles/Vol] 13 mmol/L 10 - 20 MP- [facility]iology -[facility] 200 Work Phone: AST With P-5'-P [Catalytic activity/Vol] 15 U/L 9 - 39 -Cardiology -[facility] [place] 200 Work Phone: [phone] Bilirubin [Mass/Vol] 0.5 mg/dL 0.0 - 1.2 -C [facility] 200 Work Phone: [phone] Calcium [Mass/Vol] 9.1 mg/dL 8.6 - 10.3 MP-Car [facility] -[facility] [place] 200 Work Phone: [phone] Chloride [Moles/Vol] 103 mmol/L 98 - 107 -C [facility] 200 Work Phone: [phone] CO2 [Moles/Vol] 26 mmol/L 21 - 32 -Cardio logy -[facility] [place] 200 Work Phone: [phone] Creatinine [Mass/Vol] 0.85 mg/dL See Below [facility] 200 Work Phone: Comment on above: Reference Range: 0.5 0 - 1.30 Glucose [Mass/Vol] 95 mg/dL 74 - 99 -Car [facility] 200 Work Phone: Potassium [Moles/Vol] 3.6 mmol/L 3.5 - 5.3 - [facility] 200 Work Phone: Protein [Mass/Vol] 6.7 g/dL 6.4 - 8.2 -Car [facility] 200 Work Phone: [phone] Sodium [Moles/Vol] 138 mmol/L 136 - 145 -Car dioly -[facility] [place] 200 Work Phone: [phone] Urea nitrogen [Mass/Vol] 10 mg/dL 6 - 23 -Cardiology -[facility] [place] 200 Work Phone: Lipase, Serumon 02-02-2021 Lipase [Catalytic activity/Vol] 16 U/L 9 - 82 -[facility] -[facility] [place] 200 Work Phone: [phone] Comment on above: Venipuncture immedia tely after or during the administration of Metamizole may lead to falsely low results. Testing should be performed immediately prior to Metamizole dosing. Q-jqpfep-u-benzoquinone imine (metabolite of Acetaminophen) will generate erroneously low results in samples for patients that have taken toxic doses of acetaminophen. No Panel Informationon 02-02 [email or web address]?RetrieveTestByDateTim e?AaejqmfXB=[id number]&Da te=02-02-2021&Time=23%3a 40%3a42%3a00&TestType=EC G&Site=2&OutputType=PDF& Ext=PDF [facility] -[place] [facility] 200 Work Phone: Sinus bradycardia MP-Card iology -[place] [facility] 200 Work Phone: Borderline Abnormal MP-Ca rdiology -[place] [facility] 200 Work Phone: [phone] [facility] -[place] [facility] 200 Work Phone: [phone] [facility] -[place] [facility] 200 Work Phone: [phone] [facility] -[place] [facility] 200 Work Phone: 105 1 [facility] -[place] [facility] 200 Work Phone: [phone] [facility] -[place] [facility] 200 Work Phone: 9 1 [facility] -[place] [facility] 200 Work Phone: 10 1 [facility] -[place] [facility] 200 Work Phone: -[phone] 1 [facility] -[place] [facility] 200 Work Phone: [phone] 1 [facility] [facility] 200 Work Phone: [phone] [facility] [facility] 200 Work Phone: [phone] MP-Cardiology [...] CLIN CHEM 2007;53:766-72 [email or web address]?RetrieveTestByDateTim e?VawqngzPX=[id number]&Da te=02-02-2021&Time=19%3a 26%3a56%3a00&TestType=EC G&Site=2&OutputType=PDF& Ext=PDF [facility] -[place] [facility] 200 Work Phone: Normal sinus rhythm MP-Ca rdiology -[place] [facility] 200 Work Phone: Borderline Abnormal MP-Ca [facility] [facility] Work Phone: [phone] [facility] [facility] Work Phone: [phone] [facility] [facility] Work Phone: [phone] [facility] [facility] Work Phone: [phone] [facility] [facility] 200 Work Phone: [phone] [facility] [facility] 200 Work Phone: [phone] [facility] [facility] 200 Work Phone: [phone] [facility] [facility] Work Phone: [phone] [facility] [facility] Work Phone: [phone] [facility] [facility] Work Phone: [phone] [facility] [facility] Work Phone: [phone] [facility] [facility] Work Phone: [phone] 1 [facility] [facility] 200 Work Phone: [phone] [facility] [facility] Work Phone: [phone] 1 [facility] [facility] 200 Work Phone: [phone] Radiologyon 02-02-2021 XR Chest Single view Normal MP-C [facility]diology -[place] [facility] Work Phone: [phone] Risk Screen - Adult Emergenc yon [...] Learning Preferencesverbal instruction Cultural Considerationsnone Developmental Considerationsnone Presybeterian Considerationsnone Learning Assessment (Other Learner): Learning Assessment (Other Learner): Other learner availableno Pressure Injury/TB/Substance: Pressure Injury: Do you have a coughno Admission Risk Screen: Significant IndicatorsComplete CAGE: CAGE: Is this an injured patient at a Trauma Center ([facility] /[place]): no Electronic Signatures: Ellie Rodriguez (RN) (Signed 02-Feb-2021 19:36) Authored: Preferred Language, Advanced Directives, Family Violence Adult, Learning Assessment (Patient), Learning Assessment (Other Learner), Pressure Injury/TB/Substance, Pressure Injury, CAGE Last Updated: 02-Feb-2021 19:36 by Ellie Rodriguez (RN) Normal [facility] TROPONIN Ion 02-02-2021 Troponin I.cardiac [Mass/Vol] ng/mL Normal 0.00 - 0.03 [facility] Comment on above: Result Comment: [...] is performed using different testing methodology at [facility] than at other [facility]. Direct result comparisons should only be made within the same method. Performed By: #### T ROP2 ####[facility] [id number] [place] [address] Triage - EDon 02-02-2021 Triage - ED Chart Review: ARRIVAL INFORMATION Mode of Arrival: ambulance Agency: [facility] Agency Name: [place] CHIEF COMPLAINT HOSEA ALVAREZ is a Male patient with a chief complaint of multiple medical complaints. Onset of the Complaint: 02-Feb-2021 Other Complaints: Pt states that he has CP, back pain and is worried about being constipated. Pt states that he was seen at the [facility] and was diagnosed with a thoracic [...] 02-Feb-2021 19:33 by Nelly Dukes (EMT-P) Normal [facility] Troponin I, Serumon 02-03-20 21 Troponin I.cardiac [Mass/Vol] ng/mL See Below [facility] Work Phone: Comment on above: Reference Range: [...] is performed using different testing methodology at [facility] than at other [facility]. Direct result comparisons should only be made within the same method. Troponin I.cardiac [Mass/Vol] ng/mL See Below [employer] 200 Work Phone: Comment on above: Reference [...] is performed using different testing methodology at [facility] than at other [facility]. Direct result comparisons should only be made within the same method. Complete Blood Count + Diffe ubaldo 02-01-2021 Basophils/100 WBC (Bld) 0.3 % 0.0 - 2.0 [facility] Work Phone: Erythrocyte distribution width (RBC) [Ratio] 12.2 % See Below [facility] Work Phone: Comment on above: Reference Range: 11. 5 - 14.5 Hematocrit (Bld) [Volume fraction] 36.0 % below low threshold See Below [facility] Work Phone: Comment on above: Reference Range: 41. 0 - 52.0 Hemoglobin (Bld) [Mass/Vol] 12.7 g/dL below low threshold See Below [employer] 200 Work Phone: Comment on above: Reference Range: 13. 5 - 17.5 Lymphocytes/100 WBC (Bld) 28.1 % See Below [facility] Work Phone: Comment on above: Reference Range: 13. 0 - 44.0 MCHC (RBC) [Mass/Vol] 35.3 g/dL See Below [employer] Work Phone: Comment on above: Reference Range: 32. 0 - 36.0 MCV (RBC) [Entitic vol] 83 fL 80 - 100 [employer] Work Phone: Monocytes/100 WBC (Bld) 9.7 % 2.0 - 10.0 [facility] 200 Work Phone: Neutrophils/100 WBC (Bld) 58.4 % See Below [facility] Work Phone: Comment on above: Reference Range: 40. 0 - 80.0 Platelets (Bld) [#/Vol] 167 10*3/uL 150 - 450 [facility] 200 Work Phone: [phone] RBC (Bld) [#/Vol] 4.35 {x10E12/L} below low threshold See Below [facility] [place] [facility] Work Phone: Comment on above: Reference Range: 4.5 0 - 5.90 WBC (Bld) [#/Vol] 3.5 10*3/uL below low threshold 4.4 - 11.3 [facility] [place] [facility] Work Phone: Complete Blood Count + Differential 0.01 {x10E9/L} See Below [facility] [place] [facility] Work Phone: Comment on above: Reference Range: 0.0 0 - 0.10 Complete Blood Count + Differential 0.11 {x10E9/L} See Below [facility] [place] [facility] Work Phone: Comment on above: Reference Range: 0.0 0 - 0.70 Complete Blood Count + Differential 0.34 {x10E9/L} See Below [facility] [place] [facility] Work Phone: Comment on above: Reference Range: 0.1 0 - 1.00 Complete Blood Count + Differential 0.98 {x10E9/L} below low threshold See Below [facility] [place] [facility] Work Phone: Comment on above: Reference Range: 1.2 0 - 4.80 Complete Blood Count + Differential 2.04 {x10E9/L} See Below [facility] [place] [facility] Work Phone: Comment on above: Reference Range: 1.2 0 - 7.70 Complete Blood Count + Differential 3.2 % 0.0 - 6.0 [facility] 200 Work Phone: Complete Blood Count + Differential 0.3 % 0.0 - 0.9 [facility] 200 Work Phone: Comment on above: Immature Granulocyte Count (IG) includes promyelocytes, myelocytes and metamyelocytes but does not include bands. Percent differential counts (%) should be interpreted in the context of the absolute cell counts (cells/L). Complete Blood Count + Differential 0.0 {/100_WBC} 0.0-0.0 [facility] 200 Work Phone: Laboratory - Chemistry and C hemistry - challengeon 02-01-2021 Albumin BCP dye [Mass/Vol] 4.1 g/dL 3.4 - 5.0 [facility] 200 Work Phone: ALP [Catalytic activity/Vol] 48 U/L 33 - 120 [facility] 200 Work Phone: ALT With P-5'-P [Catalytic activity/Vol] 15 U/L 10 - 52 [facility] [employer] Work Phone: Comment on above: Patients treated wit h Sulfasalazine may generate falsely decreased results for ALT. Anion gap [Moles/Vol] 14 mmol/L 10 - 20 [place] [address] Work Phone: AST With P-5'-P [Catalytic activity/Vol] 15 U/L 9 - 39 [facility] 200 Work Phone: Bilirubin [Mass/Vol] 0.5 mg/dL 0.0 - 1.2 [facility] 200 Work Phone: Calcium [Mass/Vol] 9.3 mg/dL 8.6 - 10.6 [facility]ENTERCar diologNich[facility] 200 Work Phone: Chloride [Moles/Vol] 103 mmol/L 98 - 107 [facility] Work Phone: CO2 [Moles/Vol] 26 mmol/L 21 - 32 [facility]ENTERCardio logy [facility] 200 Work Phone: Creatinine [Mass/Vol] 0.87 mg/dL See Below [facility] 200 Work Phone: [phone] Comment on above: Reference Range: 0.5 0 - 1.30 Glucose [Mass/Vol] 118 mg/dL above high threshold 74 - 99 [facility] 200 Work Phone: Potassium [Moles/Vol] 3.6 mmol/L 3.5 - 5.3 [facility] 200 Work Phone: Protein [Mass/Vol] 6.4 g/dL 6.4 - 8.2 [facility] 200 Work Phone: [phone] Sodium [Moles/Vol] 139 mmol/L 136 - 145 [facility] 200 Work Phone: Urea nitrogen [Mass/Vol] 10 mg/dL 6 - 23 [place] [address] Work Phone: [phone] Lipase, Serumon 02-01-2021 Lipase [Catalytic activity/Vol] 18 U/L 9 - 82 [place] [address] Work Phone: Comment on above: Venipuncture immedia tely after or during the administration of Metamizole may lead to falsely low results. Testing should be performed immediately prior to Metamizole dosing. W-mmnkbj-i-benzoquinone imine (metabolite of Acetaminophen) will generate erroneously low results in samples for patients that have taken toxic doses of acetaminophen. No Panel Informationon 02-01 >60 >60 [facility] 200 Work Phone: Comment on above: CALCULATIONS OF NIKOLE MATED GFR ARE PERFORMED USING THE MDRD STUDY EQUATION FOR THE IDMS-TRACEABLE CREATININE METHODS. CLIN CHEM 2007;53:766-72 [email or web address] ll?RetrieveTestByDateTim e?JmildqwDW=[id number]&Da te=08-27-2021&Time=19%3a 03%3a19%3a00&TestType=EC G&Site=1&OutputType=PDF& Ext=PDF [facility] [facility] Work Phone: [phone] Please see ED Provid er Note for formal interpretation [facility] [facility] Work Phone: [phone] Normal [facility] [facility] Work Phone: [phone] [facility] [facility] Work Phone: [phone] [facility] [facility] Work Phone: [phone] 1 [facility] [facility] Work Phone: [phone] 1 [facility] [facility] Work Phone: [phone] 1 [facility] [facility] Work Phone: [phone] 12 1 [facility] [facility] Work Phone: [phone] 1 [facility] [facility] Work Phone: [phone] 1 [facility] [facility] 200 Work Phone: [phone] 1 [facility] [facility] 200 Work Phone: [phone] 1 [facility] [facility] Work Phone: [phone] 1 [facility] [facility] Work Phone: [phone] 1 [facility] [facility] Work Phone: [phone] 1 [facility] [facility] Work Phone: [phone] 1 [facility] [facility] Work Phone: [phone] Radiologyon 02-01-2021 XR Chest 2 Views Normal [facility]-Cardi ology -[place] [facility] Work Phone: [phone] Troponin I, Serumon 02-02-20 21 Troponin I.cardiac [Mass/Vol] ng/mL See Below [employer] 200 Work Phone: Comment on above: Reference [...] is performed using different testing methodology at [facility] than at other [facility] [place] [facility]. Direct result comparisons should only be made [...] Screening Asymptomtic Not detected Normal See Below [employer] 200 Work Phone: Comment on above: SOURCE: [...] this test method. Fact sheet for providers: www.fda.gov/media/651206/downloadFact sheet for patients: www.fda.gov/media/878485/downloadThis test has received FDA Emergency Use Authorization (EUA) and has been verified by [facility] ([facility]). This test is only authorized for the duration of time that circumstances exist to justify the authorization of the emergency use of in vitro diagnostic tests for the detection of SARS-CoV-2 virus and/or diagnosis of COVID-19 infection under section 564(b)(1) of the Act, 21 U.S.C. 360bbb-3(b)(1), unless the authorization is terminated or revoked sooner. [facility] is certified under CLIA-88 as qualified to perform high complexity testing. Testing is performed in the [facility] laboratories located at [address] [place] [address]. Complete Blood Count + Diffe ubaldo 01-29-2021 Basophils/100 WBC (Bld) 0.5 % 0.0 - 2.0 [employer] TechnologiesCard[facility] [employer] 200 Work Phone: Erythrocyte distribution width (RBC) [Ratio] 12.4 % See Below [employer] 200 Work Phone: Comment on above: Reference Range: 11. 5 - 14.5 Hematocrit (Bld) [Volume fraction] 35.5 % below low threshold See Below [employer] 200 Work Phone: Comment on above: Reference Range: 41. 0 - 52.0 Hemoglobin (Bld) [Mass/Vol] 12.1 g/dL below low threshold See Below [employer] 200 Work Phone: Comment on above: Reference Range: 13. 5 - 17.5 Lymphocytes/100 WBC (Bld) 19.5 % See Below [employer] 200 Work Phone: Comment on above: Reference Range: 13. 0 - 44.0 MCHC (RBC) [Mass/Vol] 34.1 g/dL See Below [employer] 200 Work Phone: Comment on above: Reference Range: 32. 0 - 36.0 MCV (RBC) [Entitic vol] 84 fL 80 - 100 [employer] 200 Work Phone: Monocytes/100 WBC (Bld) 9.6 % 2.0 - 10.0 [employer] 200 Work Phone: Neutrophils/100 WBC (Bld) 66.8 % See Below EDUonGolaFirst Look Media 200 Work Phone: Comment on above: Reference Range: 40. 0 - 80.0 Platelets (Bld) [#/Vol] 157 10*3/uL 150 - 450 [facility]ENTERSocialite [facility] 200 Work Phone: [phone] RBC (Bld) [#/Vol] 4.25 {x10E12/L} below low threshold See Below [facility]ENTERyuilop SL[facility] [place] [facility] Work Phone: Comment on above: Reference Range: 4.5 0 - 5.90 WBC (Bld) [#/Vol] 4.2 10*3/uL below low threshold 4.4 - 11.3 [facility]ENTERyuilop [facility] [place] [facility] Work Phone: Complete Blood Count + Differential 0.02 {x10E9/L} See Below [facility]ENTERyuilop [facility] [place] [facility] Work Phone: Comment on above: Reference Range: 0.0 0 - 0.10 Complete Blood Count + Differential 0.14 {x10E9/L} See Below [facility]ENTERyuilop SL[facility] [place] [facility] Work Phone: Comment on above: Reference Range: 0.0 0 - 0.70 Complete Blood Count + Differential 0.40 {x10E9/L} See Below [facility]ENTERyuilop SL[facility] [place] [facility] Work Phone: Comment on above: Reference Range: 0.1 0 - 1.00 Complete Blood Count + Differential 0.81 {x10E9/L} below low threshold See Below [facility]ENTERyuilop [facility] [place] [facility] Work Phone: Comment on above: Reference Range: 1.2 0 - 4.80 Complete Blood Count + Differential 2.78 {x10E9/L} See Below [facility] [place] [facility] Work Phone: Comment on above: Reference Range: 1.2 0 - 7.70 Complete Blood Count + Differential 3.4 % 0.0 - 6.0 [facility] CENTERRVXSt. [facility] Hospital 200 Work Phone: Complete Blood Count + Differential 0.2 % 0.0 - 0.9 [facility] [employer] 200 Work Phone: Comment on above: Immature Granulocyte Count (IG) includes promyelocytes, myelocytes and metamyelocytes but does not include bands. Percent differential counts (%) should be interpreted in the context of the absolute cell counts (cells/L). Laboratory - Chemistry and C hemistry - challengeon 01-29-2021 Albumin BCP dye [Mass/Vol] 4.1 g/dL 3.4 - 5.0 [facility] [employer] 200 Work Phone: ALP [Catalytic activity/Vol] 39 U/L 33 - 120 [facility] 200 Work Phone: ALT With P-5'-P [Catalytic activity/Vol] 17 U/L 10 - 52 [facility] 200 Work Phone: Comment on above: Patients treated wit h Sulfasalazine may generate falsely decreased results for ALT. Anion gap [Moles/Vol] 11 mmol/L 10 - 20 [facility] [employer] 200 Work Phone: AST With P-5'-P [Catalytic activity/Vol] 14 U/L 9 - 39 [facility] 200 Work Phone: Bilirubin [Mass/Vol] 0.3 mg/dL 0.0 - 1.2 -C [facility] 200 Work Phone: Calcium [Mass/Vol] 9.0 mg/dL 8.6 - 10.3 -Car diology [facility] 200 Work Phone: [phone] Chloride [Moles/Vol] 103 mmol/L 98 - 107 -C ardiology [facility] 200 Work Phone: CO2 [Moles/Vol] 27 mmol/L 21 - 32 -Cardio logy [facility] 200 Work Phone: Creatinine [Mass/Vol] 0.88 mg/dL See Below [facility] 200 Work Phone: Comment on above: Reference Range: 0.5 0 - 1.30 Glucose [Mass/Vol] 102 mg/dL above high threshold 74 - 99 EDUonGolaFirst Look Media 200 Work Phone: Potassium [Moles/Vol] 3.6 mmol/L 3.5 - 5.3 [employer] 200 Work Phone: Protein [Mass/Vol] 6.6 g/dL 6.4 - 8.2 [employer]TradeKingJones[facility] [employer] 200 Work Phone: Sodium [Moles/Vol] 137 mmol/L 136 - 145 [employer] [facility] Pro[employer] TechnologiesJonesboro [employer] 200 Work Phone: Urea nitrogen [Mass/Vol] 10 mg/dL 6 - 23 EDUonGolake [employer] 200 Work Phone: Laboratory - Coagulationon 0 01-29-2021 INR Coag (PPP) [Relative time] 1.1 {INR} 0.9 - 1.1 EDUonGolake [employer] 200 Work Phone: PT Coag (PPP) [Time] 12.7 s See Below [facility]St[facility] 200 Work Phone: Comment on above: Reference Range: 10. 1 - 13.3 Magnesium, Serumon Magnesium [Mass/Vol] 1.90 mg/dL See Below [facility] [employer] 200 Work Phone: Comment on above: Reference Range: 1.6 0 - 2.40 No Panel Informationon 01-29 >60 >60 EDUonGolake [employer] 200 Work Phone: Comment on above: CALCULATIONS OF NIKOLE MATED GFR ARE PERFORMED USING THE MDRD STUDY EQUATION FOR THE IDMS-TRACEABLE CREATININE METHODS. CLIN CHEM 2007;53:766-72 27 pg/mL 0 - 99 EDUonGolaFirst Look Media 200 Work Phone: Comment on above: . <100 pg/mL - Heart failure [id number] pg/mL - Intermediate probability of acute heart. failure exacerbation. Correlate with clinical. context and patient history. >=300 pg/mL - Heart Failure likely. Correlate with clinical. context and patient history.BNP testing is performed using different testing methodology at [facility] than at other [facility] hospitals. Direct result comparisons should only be made within the same method. Radiologyon 01-29-2021 XR Chest Single view Normal - ardiology -[employer] 200 Work Phone: TH CT Angio Chest For PEon 0 01-29-[address] Angio Chest For PE Normal [facility] CENTERDash Labs[facility] Inc[facility] 200 Work Phone: Troponin I, Serumon 01-30-20 Troponin I.cardiac [Mass/Vol] ng/mL See Below [facility] Work Phone: Comment on above: Reference Range: [...] is performed using different testing methodology at [facility] than at other [facility] [facility] [facility]. Direct result comparisons should only be made within the same method. Troponin I.cardiac [Mass/Vol] ng/mL See Below [facility] Work Phone: Comment on above: Reference Range: [...] is performed using different testing methodology at [facility] than at other [facility] [facility] [facility]. Direct result comparisons should only be made within the same method. ECG COMPLETEon 02-04-2020 ECG COMPLETE NAME : SOFYA ALVAREZ ND PID : [id number] : 1970 Gender : Male Race : ORD : [id number] Procedure Date : Feb 04 2020 19:39:41 [...] ms QTC Calculation(Bezet) : 404 ms P Wren : 39 degrees R Wren : -19 degrees T Wren : 18 degrees Test Reason : Location :[id number] Overread By : ELIZABET GARZA MD Editted By : ELIZABET GARZA MD Referred By : , Acquired by : [id number], [facility] ED NOTEon 02-04-2020 ED NOTE HNO ID: [id number] Author: Arie Becker RN Service: ? Author Type: Registered Nurse Type: ED Notes Filed: 02/04/2020 9:22 PM Note Text: Discharge instructions, prescriptions, and follow up care instructions reviewed with patient. Patient verbalized understanding. Patient was instructed to come back to the ED if symptoms worsened. Patient left the ED ambulatory with a steady gait. [facility] ED NOTE HNO ID: [id number] Author: Arie Becker RN Service: ? Author Type: Registered Nurse Type: ED Notes Filed: 02/04/2020 9:11 PM Note Text: Patient speaking with [employer] at this time. [facility] ED NOTE HNO ID: [id number] Author: Arie Becker RN Service: ? Author Type: Registered Nurse Type: ED Notes Filed: 02/04/2020 9:11 PM Note Text: Nurse to room to discharge patient. Patient asleep and states I didn't call anyone yet. Explained to patient that he was up for discharge and would need to call for a ride. Patient requesting [employer] phone number. Patient provided with city cab's phone number. [facility] ED NOTE HNO ID: [id number] Author: Arie Becker RN Service: ? Author Type: Registered Nurse Type: ED Notes Filed: 02/04/2020 9:03 PM Note Text: Patient provided with cordless phone. [facility] ED NOTE HNO ID: [id number] Author: Arie Becker RN Service: ? Author Type: Registered Nurse Type: ED Notes Filed: 02/04/2020 9:03 PM Note Text: BROOKLYNN Pang at patients bedside speaking with patient. [facility] ED NOTE HNO ID: [id number] Author: Arie Becker RN Service: ? Author [...] with the charge nurse. BROOKLYNN Pang notified. [facility] ED NOTE HNO ID: [id number] Author: Arie Becker RN Service: ? Author Type: Registered Nurse Type: ED Notes Filed: 02/04/2020 8:55 PM Note Text: Patient provided with can of gingerale. [facility] ED NOTE HNO ID: [id number] Author: Arie Becker RN Service: ? Author Type: Registered Nurse Type: ED Notes Filed: 02/04/2020 8:50 PM Note Text: Natalia INTERIOR SYSTEMS CARPENTER at patients bedside speaking with patient. [facility] ED NOTE HNO ID: [id number] Author: Arie Becker RN Service: ? Author Type: Registered Nurse Type: ED Notes Filed: 02/04/2020 8:27 PM Note Text: Patient provided with TV remote. [facility] ED NOTE HNO ID: [id number] Author: Arie Becker RN Service: ? Author Type: Registered Nurse Type: ED Notes Filed: 02/04/2020 8:18 PM Note Text: Assumed care of patient from BROOKLYNN Carranza. Patient resting comfortably on cart at this time. [facility] ED NOTE HNO ID: [id number] Author: Karen Resendiz RN Service: ? Author Type: Registered Nurse Type: ED Notes Filed: 02/04/2020 7:51 PM Note Text: Patient brought to ED via EMS with a possible reaction to a beer he drank about 6:30pm. Patient states he became flushed after drinking the beer. He also believes he had increased bp. No hives or itching. Patient did take his bp medications today. [facility] ED NOTE HNO ID: [id number] Author: Ervin Yadav LPN Service: ? Author Type: LICENSED NURSE Type: ED Notes Filed: 02/04/2020 7:39 PM Note Text: Bed: ED-12 Expected date: 02/04/20 Expected time: 7:32 PM Means of arrival: Comments: C-CAN [facility] ED PROV NOTEon 02-04-2020 ED PROV NOTE HNO ID: [id number] Author: Cathy Graham CNP Service: ? Author Type: Nurse Practitioner Type: ED Provider Notes Filed: 02/06/2020 12:58 PM Note Text: -------- Attestation signed by Andrews Kelly Jr., MD at 02/10/2020 7:02 PM I did not personally performed a face to face assessment of the patient but have reviewed the PA/PARTS INSPECTOR note and was available for consultation throughout ED course. Signature: Andrews Kelly Jr, MD Date: 02/10/2020 Time: 7:02 PM -------- ED Provider Note Patient Name: Hosea Alvarez SERVICE DATE: 02/04/20 History Patient presents with: Allergic Reaction Hypertension History provided by: Patient History limited by: n/a. environmental planner used: No Allergic Reaction Presenting symptoms: no [...] 75, No ST elevation or ST depression. CT interval 172, QRS 98, QTC 404 This [...] Andrews Kelly Jr., MD 02/10/20 1902 Normal [facility] APTTon 01-17-2020 aPTT Coag (Bld) [Time] 25.7 s [place], [place] Comment on above: PTT Therapeutic Range: 61.7-88.4 Therapeutic range corresponds to plasma heparin levels of 0.3-0.7 U/mL. CBC Auto Differentialon 12-23 Basophils (Bld) [#/Vol] 0.00 10*3/uL [place], [place] Basophils/100 WBC (Bld) 0 % 0 - 2 % [place] Differential Type YES [place], [place] Eosinophils (Bld) [#/Vol] 0.10 10*3/uL [place] Eosinophils/100 WBC (Bld) 2 % 0 - 5 % [place] Erythrocyte distribution width (RBC) [Ratio] 13.6 % 12.1 - 15.2 % [place] Hematocrit (Bld) [Volume fraction] 40.0 % Low 41 - 53 % [place] Hemoglobin (Bld) [Mass/Vol] 13.6 g/dL 13.5 - 17.5 g/dL [place] Interpretation and review of laboratory results Abnormal [place] Lymphocytes (Bld) [#/Vol] 1.40 10*3/uL [place] Lymphocytes/100 WBC (Bld) 30 % 13 - 44 % [place] MCH (RBC) [Entitic mass] 28.6 pg 26 - 34 pg [place] MCHC (RBC) [Mass/Vol] 34.0 g/dL 31 - 37 g/dL [place] MCV (RBC) [Entitic vol] 84.2 fL 80 - 100 fL [place] Monocytes (Bld) [#/Vol] 0.30 10*3/uL [place] Monocytes/100 WBC (Bld) 7 % 5 - 9 % [place] Platelet mean volume (Bld) [Entitic vol] NOT REPORTED 6 - 12 fL [place] Platelets (Bld) [#/Vol] 176 10*3/uL [place] Platelets (Bld) [#/Vol] NOT REPORTED [place] RBC (Bld) [#/Vol] 4.75 10*6/uL 4.5 - 5.9 m/uL [place] RBC morphology finding Nom (Bld) NOT REPORTED [place] Segmented neutrophils/100 WBC (Bld) 61 % 39 - 75 % [place] Segs Absolute 2.80 [place] WBC (Bld) [#/Vol] 4.6 10*3/uL [place] WBC (Bld) [#/Vol] NOT REPORTED per 100 WBC [place] WBC Morphology NOT REPORTED [place] CTA CHEST W CONTRASTon 01-16 PROCEDURE: [...] the spleen consistent with phase of injection. [facility], [place] No evidence of acute or chronic pulmonary [...] for infectious or inflammatory/reflux esophagitis is recommended.. [facility] [place] [place] Jaiden, Mhpn Incoming Radiant Results From [employer] - 01/17/2020 3:50 AM EDT PROCEDURE: CTA [...] for infectious or inflammatory/reflux esophagitis is recommended.. [place] Comprehensive Metabolic Pane bart 01-17-2020 Albumin [Mass/Vol] 4.5 g/dL 3.5 - 5.2 g/dL [place] Albumin/Globulin [Mass ratio] NOT REPORTED [place] ALP [Catalytic activity/Vol] 67 U/L 40 - 129 U/L [place] ALT [Catalytic activity/Vol] 28 U/L 5 - 41 U/L [place] Anion gap [Moles/Vol] 18 mmol/L High 9 - 17 mmol/L [place] AST [Catalytic activity/Vol] 19 U/L <40 [place] Bilirubin Ql (U) 0.22 mg/dL Low 0.3 - 1.2 mg/dL [place] Bun/Cre Ratio NOT REPORTED [place], [place] Calcium [Mass/Vol] 9.8 mg/dL 8.6 - 10. 4 mg/dL [place] Chloride [Moles/Vol] 102 mmol/L 98 - 10 7 mmol/L [place] CO2 [Moles/Vol] 21 mmol/L 20 - 31 mmol/L [place] Creatinine [Mass/Vol] 1.23 mg/dL High 0.7 - 1.2 mg/dL [place] GFR >60 >60 mL/min [place] GFR Non- >60 >60 mL/min [place] GFR/1.73 sq M predicted among non-blacks MDRD (S/P/Bld) [Vol rate/Area] [place], [place] Comment on above: Average GFR for 40-4 9 years old: 99 mL/min/1.73sq m Chronic Kidney Disease: <60 mL/min/1.73sq m Kidney failure: <15 mL/min/1.73sq m eGFR calculated using average adult body mass. Additional eGFR calculator available at: http://[email or web address] GFR/1.73 sq M predicted among non-blacks MDRD (S/P/Bld) [Vol rate/Area] NOT REPORTED [place], [place] Glucose [Mass/Vol] 108 mg/dL High 70 - 99 mg/dL [place] Interpretation and review of laboratory results Abnormal [place] Potassium [Moles/Vol] 4.2 mmol/L 3.7 - 5.3 mmol/L [place] Protein [Mass/Vol] 7.7 g/dL 6.4 - 8.3 g/dL [place] Sodium [Moles/Vol] 141 mmol/L 135 - 144 mmol/L [place] Urea nitrogen [Mass/Vol] 20 mg/dL 6 - 20 mg/dL [place], [place] Otheron 01-17-2020 Immature granulocytes (Bld) [#/Vol] NOT REPORTED [place] Protime-INRon 01-17-2020 INR Coag (PPP) [Relative time] 0.9 {INR} [place], [place] Comment on above: * THERAPY INDICATIONS * REFERENCE RANGES Pts not on anti-coagulants 1.0 - 1.5 INR Low risk pts on anti-coagulants 2.0 - 3.0 INR High risk pts on anti-coagulants 2.5 - 3.5 INR Prevention of atrial thrombo-embolism 3.0 - 4.5 INR PT Coag (PPP) [Time] 9.1 s [place] Troponinon 01-17-2020 Troponin I.cardiac [Mass/Vol] [place], [place] Comment on above: Reference Range: <0.03 [...] diagnosis. Troponin T.cardiac [Mass/Vol] ug/L <0.03 ng/mL [place], [place] Comment on above: Troponin T results c annot be compared to Troponin-I results. Troponin, High Sensitivity NOT REPORTED 0 - 22 ng/L [place] XR CHEST PORTABLEon 01-17-20 20 Mild bronchial thickening as described with subtle adjacent atelectatic change. No consolidation, effusion, or pneumothorax. No other acute localizing pulmonary pathology. [place], [place] Jaiden, Mhpn Incoming Radiant Results From [employer] - 01/17/2020 2:28 AM EDT PROCEDURE: XR [...] pneumothorax. No other acute localizing pulmonary pathology. [place] PROCEDURE: XR CHEST PORTABLE REASON FOR [...] No acute appearing focal significant bony abnormality. [place] CBC Auto Differentialon 12-23 Basophils (Bld) [#/Vol] 0.00 10*3/uL [place] Basophils/100 WBC (Bld) 0 % 0 - 2 % [place], [place] Differential Type YES [place], [place] Eosinophils (Bld) [#/Vol] 0.00 10*3/uL [place] Eosinophils/100 WBC (Bld) 1 % 0 - 5 % [place] Erythrocyte distribution width (RBC) [Ratio] 13.8 % 12.1 - 15.2 % [place] Hematocrit (Bld) [Volume fraction] 41.0 % 41 - 53 % [place] Hemoglobin (Bld) [Mass/Vol] 13.9 g/dL 13.5 - 17.5 g/dL [place] Lymphocytes (Bld) [#/Vol] 1.00 10*3/uL [place], [place] Lymphocytes/100 WBC (Bld) 26 % 13 - 44 % [place] MCH (RBC) [Entitic mass] 28.5 pg 26 - 34 pg [place] MCHC (RBC) [Mass/Vol] 34.0 g/dL 31 - 37 g/dL [place] MCV (RBC) [Entitic vol] 83.9 fL 80 - 100 fL [place] Monocytes (Bld) [#/Vol] 0.40 10*3/uL [place], [place] Monocytes/100 WBC (Bld) 9 % 5 - 9 % [place] Platelet mean volume (Bld) [Entitic vol] NOT REPORTED 6 - 12 fL [place] Platelets (Bld) [#/Vol] 176 10*3/uL [place] Platelets (Bld) [#/Vol] NOT REPORTED [place] RBC (Bld) [#/Vol] 4.89 10*6/uL 4.5 - 5.9 m/uL [place], [place] RBC morphology finding Nom (Bld) NOT REPORTED [place], [place] Segmented neutrophils/100 WBC (Bld) 64 % 39 - 75 % [place] Segs Absolute 2.50 [place] WBC (Bld) [#/Vol] 4.0 10*3/uL [place] WBC (Bld) [#/Vol] NOT REPORTED per 100 WBC [place] WBC Morphology NOT REPORTED [place], [place] Comprehensive Metabolic Pane bart 01-14-2020 Albumin [Mass/Vol] 4.8 g/dL 3.5 - 5.2 g/dL [place] Albumin/Globulin [Mass ratio] NOT REPORTED [place] ALP [Catalytic activity/Vol] 72 U/L 40 - 129 U/L [place] ALT [Catalytic activity/Vol] 34 U/L 5 - 41 U/L [place] Anion gap [Moles/Vol] 11 mmol/L 9 - 17 mmol/L [place] AST [Catalytic activity/Vol] 29 U/L <40 [place] Bilirubin Ql (U) 0.37 mg/dL 0.3 - 1.2 mg/dL [place] Bun/Cre Ratio NOT REPORTED [place], [place] Calcium [Mass/Vol] 9.9 mg/dL 8.6 - 10. 4 mg/dL [place] Chloride [Moles/Vol] 98 mmol/L 98 - 10 7 mmol/L [place] CO2 [Moles/Vol] 27 mmol/L 20 - 31 mmol/L [place] Creatinine [Mass/Vol] 1.01 mg/dL 0.7 - 1.2 mg/dL [place] GFR >60 >60 mL/min [place] GFR Non- >60 >60 mL/min [place] GFR/1.73 sq M predicted among non-blacks MDRD (S/P/Bld) [Vol rate/Area] [place], [place] Comment on above: Average GFR for 40-4 9 years old: 99 mL/min/1.73sq m Chronic Kidney Disease: <60 mL/min/1.73sq m Kidney failure: <15 mL/min/1.73sq m eGFR calculated using average adult body mass. Additional eGFR calculator available at: http://www.TapSurge/multiple_crcl_2012.htm GFR/1.73 sq M predicted among non-blacks MDRD (S/P/Bld) [Vol rate/Area] NOT REPORTED [place], [place] Glucose [Mass/Vol] 111 mg/dL High 70 - 99 mg/dL [place] Interpretation and review of laboratory results Abnormal [place] Potassium [Moles/Vol] 3.9 mmol/L 3.7 - 5.3 mmol/L [place] Protein [Mass/Vol] 8.1 g/dL 6.4 - 8.3 g/dL [place] Sodium [Moles/Vol] 136 mmol/L 135 - 144 mmol/L [place] Urea nitrogen [Mass/Vol] 15 mg/dL 6 - 20 mg/dL [place] D-Dimer, Quantitativeon 12-23 D-Dimer, Quant 0.30 [place], [place] Comment on above: Elevated levels of [...] 01-14-2020 Immature granulocytes (Bld) [#/Vol] NOT REPORTED [place] Troponinon 01-14-2020 Troponin I.cardiac [Mass/Vol] [place], [place] Comment on above: Reference Range: <0.03 [...] diagnosis. Troponin T.cardiac [Mass/Vol] ug/L <0.03 ng/mL [place] Comment on above: Troponin T results c annot be compared to Troponin-I results. Troponin, High Sensitivity NOT REPORTED 0 - 22 ng/L [place] Urinalysison 01-14-2020 Bilirubin Urine Negative NEGATIVE [place], [place] Color, UA YELLOW YELLOW [place], [place] Glucose, Ur Negative NEGATIVE [place] Ketones Ql (U) Negative NEGATIVE [place], [place] Leukocyte esterase Test strip Ql (U) Negative NEGATIVE [place], [place] Nitrite, Urine Negative NEGATIVE [place], [place] pH, UA 6.0 [place], [place] Protein (U) [Mass/Vol] Negative NEGATIVE [place] Specific [place], UA 1.015 [place], [place] Turbidity UA CLEAR CLEAR [place] Urinalysis Comments [place] Urine Hgb Negative NEGATIVE [place] Urobilinogen, Urine Normal Normal [place] XR CHEST PORTABLEon 01-14-20 20 Jaiden, Mhpn Incoming Radiant Results From [employer] - 01/14/2020 5:30 PM EDT EXAM: XR CHEST PORTABLE REASON FOR EXAM: Generalized weakness. COMPARISON: None. FINDINGS: Shallow breath. Heart size upper normal. Lungs are clear. IMPRESSION: Allowing for a shallow breath, negative portable chest. [place] Allowing for a shall ow breath, negative portable chest. [place] EXAM: XR CHEST RITO BLE REASON FOR EXAM: Generalized weakness. COMPARISON: None. FINDINGS: Shallow breath. Heart size upper normal. Lungs are clear. [place] ANION GAPon 12-15-2019 Anion gap [Moles/Vol] 19.0 mmol/L High 8.0-16.0 [facility] Comment on above: Result Comment: ANIO N GAP = Sodium -(Chloride + CO2) Performed By: #### C BCWD, MG, CMP, ANION, EGFR1, OSMOL #### [facility] [employer] [address] [place] [address] Anion Gapon 12-15-2019 Anion gap [Moles/Vol] 19.0 mmol/L High 8 - 16 meq/L [place], [place] Comment on above: ANION GAP = Sodium - (Chloride + CO2) Performed at [facility] [address] [place] [address] CALCULATED OSMOLALITYon 11-22 Osmolality [Osmolality] 277.9 mOsmol/kg Normal 275.0-300. [facility] Comment on above: Performed By: #### C BCWD, MG, CMP, ANION, EGFR1, OSMOL #### [place] [address] CBC WITH DIFFERENTIALon 11-22 ABS IMMATURE GRANS (IG) 0.01 thou/mm3 Normal 0.00-0.07 [facility] Comment on above: Performed By: #### C BCWD, MG, CMP, ANION, EGFR1, OSMOL #### [place] [address] ABS NEUTROPHILS 2.9 thou/mm3 Normal 1.8-7.7 [facility] Comment on above: Performed By: #### C BCWD, MG, CMP, ANION, EGFR1, OSMOL #### [address] [address] Basophils (Bld) [#/Vol] 0.0 thou/mm3 Normal 0.0-0.1 [facility] Comment on above: Performed By: #### C BCWD, MG, CMP, ANION, EGFR1, OSMOL #### [address] [address] Basophils/100 WBC (Bld) 0.4 % Normal [facility] Comment on above: Performed By: #### C BCWD, MG, CMP, ANION, EGFR1, OSMOL #### [address] [address] Eosinophils (Bld) [#/Vol] 0.1 thou/mm3 Normal 0.0-0.4 [facility] Comment on above: Performed By: #### C BCWD, MG, CMP, ANION, EGFR1, OSMOL #### [address] [address] Eosinophils/100 WBC (Bld) 1.1 % Normal [facility] Comment on above: Performed By: #### C BCWD, MG, CMP, ANION, EGFR1, OSMOL #### [place] [address] Erythrocyte distribution width (RBC) [Ratio] 13.2 % Normal 11.5-14.5 [facility] Comment on above: Performed By: #### C BCWD, MG, CMP, ANION, EGFR1, OSMOL #### [place] [address] Hematocrit (Bld) [Volume fraction] 45.0 % Normal 42.0-52.0 [facility] Comment on above: Performed By: #### C BCWD, MG, CMP, ANION, EGFR1, OSMOL #### [address] [address] Hemoglobin (Bld) [Mass/Vol] 14.6 gm/dl Normal 14.0-18.0 [facility] Comment on above: Performed By: #### C BCWD, MG, CMP, ANION, EGFR1, OSMOL #### [address] [address] IMMATURE GRANS (IG) 0.2 % Normal [facility] Comment on above: Performed By: #### C BCWD, MG, CMP, ANION, EGFR1, OSMOL #### [address] [address] Lymphocytes (Bld) [#/Vol] 1.3 thou/mm3 Normal 1.0-4.8 [facility] Comment on above: Performed By: #### C BCWD, MG, CMP, ANION, EGFR1, OSMOL #### [address] [address] Lymphocytes/100 WBC (Bld) 28.5 % Normal [facility] Comment on above: Performed By: #### C BCWD, MG, CMP, ANION, EGFR1, OSMOL #### [address] [address] MCH (RBC) [Entitic mass] 28.3 pg Normal 26.0-33.0 [facility] Comment on above: Performed By: #### C BCWD, MG, CMP, ANION, EGFR1, OSMOL #### [address] [address] MCHC (RBC) [Mass/Vol] 32.4 gm/dl Normal 32.2-35.5 [facility] Comment on above: Performed By: #### C BCWD, MG, CMP, ANION, EGFR1, OSMOL #### [address] [address] MCV (RBC) [Entitic vol] 87.4 fL Normal 80.0-94.0 [facility] Comment on above: Performed By: #### C BCWD, MG, CMP, ANION, EGFR1, OSMOL #### [address] [address] Monocytes (Bld) [#/Vol] 0.4 thou/mm3 Normal 0.4-1.3 [facility] Comment on above: Performed By: #### C BCWD, MG, CMP, ANION, EGFR1, OSMOL #### [address] [address] Monocytes/100 WBC (Bld) 8.8 % Normal [facility] Comment on above: Performed By: #### C BCWD, MG, CMP, ANION, EGFR1, OSMOL #### [address] [address] Neutrophils/100 WBC (Bld) 61.0 % Normal [facility] Comment on above: Performed By: #### C BCWD, MG, CMP, ANION, EGFR1, OSMOL #### [address] [address] Nucleated RBC/100 WBC (Bld) [Ratio] 0 /100 wbc Normal [facility] Comment on above: Performed By: #### C BCWD, MG, CMP, ANION, EGFR1, OSMOL #### [address] [address] Platelet mean volume (Bld) [Entitic vol] 11.2 fL Normal 9.4-12.4 [facility] Comment on above: Performed By: #### C BCWD, MG, CMP, ANION, EGFR1, OSMOL #### [address] [address] Platelets (Bld) [#/Vol] 171 thou/mm3 Normal 130-400 [facility] Comment on above: Performed By: #### C BCWD, MG, CMP, ANION, EGFR1, OSMOL #### [place] [address] RBC (Bld) [#/Vol] 5.15 mill/mm3 Normal 4.70-6.10 [facility] Comment on above: Performed By: #### C BCWD, MG, CMP, ANION, EGFR1, OSMOL #### [place] [address] RDW-SD 41.4 fL Normal 35.0-45.0 [facility] Comment on above: Performed By: #### C BCWD, MG, CMP, ANION, EGFR1, OSMOL #### [place] [address] WBC (Bld) [#/Vol] 4.7 thou/mm3 Low 4.8-10.8 [facility] Comment on above: Performed By: #### C BCWD, MG, CMP, ANION, EGFR1, OSMOL #### [address] [address] CBC auto differentialon 11-22 Basophils (Bld) [#/Vol] 0.0 10*3/uL [place] Basophils/100 WBC (Bld) 0.4 % [place] Eosinophils (Bld) [#/Vol] 0.1 10*3/uL [place] Eosinophils/100 WBC (Bld) 1.1 % [place] Erythrocyte distribution width (RBC) [Ratio] 13.2 % 11.5 - 14.5 % [place] Hematocrit (Bld) [Volume fraction] 45.0 % 42 - 52 % [place] Hemoglobin (Bld) [Mass/Vol] 14.6 g/dL [place] Immature Grans (Abs) 0.01 [place] Immature granulocytes (Bld) [#/Vol] 0.2 % [place] Interpretation and review of laboratory results Abnormal [place] Lymphocytes (Bld) [#/Vol] 1.3 10*3/uL [place] Lymphocytes/100 WBC (Bld) 28.5 % [place] MCH (RBC) [Entitic mass] 28.3 pg 26 - 33 pg [place] MCHC (RBC) [Mass/Vol] 32.4 g/dL [place] MCV (RBC) [Entitic vol] 87.4 fL 80 - 94 fL [place] Monocytes (Bld) [#/Vol] 0.4 10*3/uL [place] Monocytes/100 WBC (Bld) 8.8 % [place] Nucleated RBC/100 WBC (Bld) [Ratio] 0 % /100 wbc [place] Comment on above: Performed at [facility] [address] [place] [address] Platelet mean volume (Bld) [Entitic vol] 11.2 fL 9.4 - 12.4 fL [place] Platelets (Bld) [#/Vol] 171 10*3/uL [place] RBC (Bld) [#/Vol] 5.15 10*6/uL [place] RDW-SD 41.4 fL 35 - 45 fL [place] Segmented neutrophils/100 WBC (Bld) 61 % [place] Segs Absolute 2.9 [place] WBC (Bld) [#/Vol] 4.7 10*3/uL [place] COMP. METABOLIC PANELon 11-22 Albumin [Mass/Vol] 4.8 g/dL Normal 3.5-5.1 [facility] Comment on above: Performed By: #### C BCWD, MG, CMP, ANION, EGFR1, OSMOL #### [facility] [address] [place] [address] ALP [Catalytic activity/Vol] 66 U/L Normal 38-126 [facility] Comment on above: Performed By: #### C BCWD, MG, CMP, ANION, EGFR1, OSMOL #### [address] [address] ALT [Catalytic activity/Vol] 21 U/L Normal 11-66 [facility] Comment on above: Performed By: #### C BCWD, MG, CMP, ANION, EGFR1, OSMOL #### [address] [address] AST [Catalytic activity/Vol] 23 U/L Normal 5-40 [facility] Comment on above: Performed By: #### C BCWD, MG, CMP, ANION, EGFR1, OSMOL #### [address] [address] Bilirubin Ql (U) 0.4 mg/dL Normal 0.3-1.2 [facility] Comment on above: Performed By: #### C BCWD, MG, CMP, ANION, EGFR1, OSMOL #### [address] [address] Calcium [Mass/Vol] 9.4 mg/dL Normal 8.5-10.5 [facility] Comment on above: Performed By: #### C BCWD, MG, CMP, ANION, EGFR1, OSMOL #### [address] [address] Chloride [Moles/Vol] 101 mmol/L Normal 98-111 [facility] Comment on above: Performed By: #### C BCWD, MG, CMP, ANION, EGFR1, OSMOL #### [address] [address] CO2 [Moles/Vol] 20 mmol/L Low 23-33 [facility] Comment on above: Performed By: #### C BCWD, MG, CMP, ANION, EGFR1, OSMOL #### [address] [address] Creatinine [Mass/Vol] 0.9 mg/dL Normal 0.4-1.2 [facility] Comment on above: Performed By: #### C BCWD, MG, CMP, ANION, EGFR1, OSMOL #### [address] [address] Glucose [Mass/Vol] 83 mg/dL Normal 70-108 [facility] Comment on above: Performed By: #### C BCWD, MG, CMP, ANION, EGFR1, OSMOL #### [address] [address] Potassium [Moles/Vol] 4.1 mmol/L Normal 3.5-5.2 [facility] Comment on above: Performed By: #### C BCWD, MG, CMP, ANION, EGFR1, OSMOL #### [address] [address] Protein [Mass/Vol] 8.1 g/dL High 6.1-8.0 [facility] Comment on above: Performed By: #### C BCWD, MG, CMP, ANION, EGFR1, OSMOL #### [address] [address] Sodium [Moles/Vol] 140 mmol/L Normal 135-145 [facility] Comment on above: Performed By: #### C BCWD, MG, CMP, ANION, EGFR1, OSMOL #### [address] [address] Urea nitrogen [Mass/Vol] 11 mg/dL Normal 7-22 [facility] Comment on above: Performed By: #### C BCWD, MG, CMP, ANION, EGFR1, OSMOL #### [address] [address] Comprehensive Metabolic Pane bart 12-15-2019 Albumin [Mass/Vol] 4.8 g/dL 3.5 - 5.1 g/dL [place] ALP [Catalytic activity/Vol] 66 U/L 38 - 126 U/L [place] ALT [Catalytic activity/Vol] 21 U/L 11 - 66 U/L [place] Comment on above: Performed at [facility] [address] [place] [address] AST [Catalytic activity/Vol] 23 U/L 5 - 40 U/L [place] Bilirubin Ql (U) 0.4 mg/dL 0.3 - 1.2 mg/dL [facility], [place] Calcium [Mass/Vol] 9.4 mg/dL 8.5 - 10. 5 mg/dL [facility], [place] Chloride [Moles/Vol] 101 mmol/L 98 - 11 1 meq/L [facility], [place] CO2 [Moles/Vol] 20 mmol/L Low 23 - 33 meq/L [place] Creatinine [Mass/Vol] 0.9 mg/dL 0.4 - 1.2 mg/dL [facility], [place] Glucose [Mass/Vol] 83 mg/dL 70 - 108 mg/dL [facility], [place] Potassium [Moles/Vol] 4.1 mmol/L 3.5 - 5.2 meq/L [facility], [place] Protein [Mass/Vol] 8.1 g/dL High 6.1 - 8 g/dL [place] Sodium [Moles/Vol] 140 mmol/L 135 - 145 meq/L [facility], [place] Urea nitrogen [Mass/Vol] 11 mg/dL 7 - 22 mg/dL [place] EKG 12-LEADon 12-15-2019 EKG 12-LEAD 82 82 168 96 [phone] 38 -23 12 Normal sinus rhythm Normal ECG When compared with ECG of 13-DEC-2019 05:08, No significant change was found Confirmed by ROBINSON PHILLIPS ([id number]) on 12/15/2019 9:13:39 AM [email or web address]=&Time=05%3a32%3a31 %3a00&TestType=ECG&Site= 3&OutputType=PDF&Ext=PDF Normal [facility] GFR, ESTIMATEDon 12-15-2019 GFR/1.73 sq M.predicted MDRD (S/P/Bld) [Vol rate/Area] 90 ml/min/1.73m2 Normal [facility] Comment on above: Result Comment: Domonique raymundo [...] BCWD, MG, CMP, ANION, EGFR1, OSMOL #### [place] [employer] [facility] [employer] [address] [place] [address] Glomerular Filtration Rate, Estimatedon 12-15-2019 Est, Glom Filt Rate 90 ml/min/1 .73m 2 [place], [place] Comment on above: Stage Description GF [...] Vol. 139 (2) pg 137-147. Performed at [facility] [address] [place] [address] MAGNESIUMon 12-15-2019 Magnesium [Mass/Vol] 2.1 mg/dL Normal 1.6-2.4 [facility] Comment on above: Performed By: #### C BCWD, MG, CMP, ANION, EGFR1, OSMOL #### [employer] [address] [place] [address] Magnesiumon 12-15-2019 Magnesium [Mass/Vol] 2.1 mg/dL 1.6 - 2 .4 mg/dL [place] Comment on above: Performed at [place] [facility] [address] [place] [address] Osmolalityon 12-15-2019 Osmolality Calc 277.9 [place], [place] Comment on above: Performed at [place] [facility] [address] [place] [address] Other12-15-2019 Interpretation and review of laboratory results Abnormal [place] EKG 12-LEADon 12-13-2019 EKG 12-LEAD 82 82 160 96 [phone] 41 -8 13 Normal sinus rhythm Normal ECG No previous ECGs available Confirmed by THU ORTEGA MD ([id number]) on 12/13/2019 11:42:34 PM [email or web address]=&Time=05%3a08%3a18 %3a00&TestType=ECG&Site= 3&OutputType=PDF&Ext=PDF Normal [facility] XR CHEST PORTABLEon 12-13-19 XR CHEST PORTABLE [...] Luis Warren MD 12/13/19 Final result Normal [facility] No acute cardiopulmo nary disease. Mild cardiomegaly. This report has been created using voice recognition software. It may contain minor errors which are inherent in voice recognition technology. Final report electronically signed by Dr. Pedro Luis Warren on 12/13/2019 6:13 AM [facility] PROCEDURE: XR CHEST PORTABLE CLINICAL INFORMATION: chest pain. COMPARISON: No prior study. TECHNIQUE: AP Portable chest xray FINDINGS: Lines/tubes/devices: none Lungs/pleura: No pneumonia, pulmonary edema, or obvious mass. No pleural effusion. No pneumothorax. Heart: There is mild cardiomegaly. Mediastinum/lizzette: No obvious mass or adenopathy. Skeleton: No significant bone or joint abnormality. [place], [place], Wcoh Incoming Radiant Results From [employer] - 12/13/2019 6:15 AM EDT PROCEDURE: XR [...] Pedro Luis Warren on 12/13/2019 6:13 AM [place] Basic Metabolic Panel w/ Ref calvin to MGon 05-18-2019 Anion gap [Moles/Vol] 13 mmol/L 9 - 17 mmol/L [place] Bun/Cre Ratio 16 [place] Calcium [Mass/Vol] 9.9 mg/dL 8.6 - 10. 4 mg/dL [place] Chloride [Moles/Vol] 101 mmol/L 98 - 10 7 mmol/L [place] CO2 [Moles/Vol] 24 mmol/L 20 - 31 mmol/L [place] Creatinine [Mass/Vol] 0.96 mg/dL 0.7 - 1.2 mg/dL [place] GFR >60 >60 mL/min [place] GFR Non- >60 >60 mL/min [place] GFR/1.73 sq M predicted among non-blacks MDRD (S/P/Bld) [Vol rate/Area] NOT REPORTED [place] GFR/1.73 sq M predicted among non-blacks MDRD (S/P/Bld) [Vol rate/Area] [place], [place] Comment on above: Average GFR for 40-4 9 years old: 99 mL/min/1.73sq m Chronic Kidney Disease: <60 mL/min/1.73sq m Kidney failure: <15 mL/min/1.73sq m eGFR calculated using average adult body mass. Additional eGFR calculator available at: http://www.TapSurge/multiple_crcl_2012.htm Glucose [Mass/Vol] 106 mg/dL High 70 - 99 mg/dL [place] Interpretation and review of laboratory results Abnormal [place] Potassium [Moles/Vol] 3.8 mmol/L 3.7 - 5.3 mmol/L [place] Sodium [Moles/Vol] 138 mmol/L 135 - 144 mmol/L [place] Urea nitrogen [Mass/Vol] 15 mg/dL 6 - 20 mg/dL [place] CBC Auto Differentialon 04-24 Basophils (Bld) [#/Vol] 0.00 10*3/uL [place] Basophils/100 WBC (Bld) 0 % 0 - 2 % [place] Differential Type YES [place] Eosinophils (Bld) [#/Vol] 0.10 10*3/uL [place] Eosinophils/100 WBC (Bld) 2 % 0 - 5 % [place] Erythrocyte distribution width (RBC) [Ratio] 13.3 % 12.1 - 15.2 % [place] Hematocrit (Bld) [Volume fraction] 40.3 % Low 41 - 53 % [place] Hemoglobin (Bld) [Mass/Vol] 14.0 g/dL 13.5 - 17.5 g/dL [place] Interpretation and review of laboratory results Abnormal [place] Lymphocytes (Bld) [#/Vol] 1.10 10*3/uL [place] Lymphocytes/100 WBC (Bld) 26 % 13 - 44 % [place] MCH (RBC) [Entitic mass] 28.8 pg 26 - 34 pg [place] MCHC (RBC) [Mass/Vol] 34.8 g/dL 31 - 37 g/dL [place] MCV (RBC) [Entitic vol] 82.9 fL 80 - 100 fL [place] Monocytes (Bld) [#/Vol] 0.40 10*3/uL [place] Monocytes/100 WBC (Bld) 9 % 5 - 9 % [place] Platelet mean volume (Bld) [Entitic vol] NOT REPORTED 6 - 12 fL [place] Platelets (Bld) [#/Vol] 154 10*3/uL [place] Platelets (Bld) [#/Vol] NOT REPORTED [place] RBC (Bld) [#/Vol] 4.86 10*6/uL 4.5 - 5.9 m/uL [place], [place] RBC morphology finding Nom (Bld) NOT REPORTED [place] Segmented neutrophils/100 WBC (Bld) 63 % 39 - 75 % [place], [place] Segs Absolute 2.80 [place], [place] WBC (Bld) [#/Vol] NOT REPORTED per 100 WBC [place] WBC (Bld) [#/Vol] 4.4 10*3/uL [place] WBC Morphology NOT REPORTED [place], [place] Otheron 05-18-2019 Immature granulocytes (Bld) [#/Vol] NOT REPORTED 0 % [place] Troponinon 05-18-2019 Troponin I.cardiac [Mass/Vol] [place], [place] Comment on above: Reference Range: <0.03 [...] diagnosis. Troponin T.cardiac [Mass/Vol] ug/L <0.03 ng/mL [place] Comment on above: Troponin T results c annot be compared to Troponin-I results. Troponin, High Sensitivity NOT REPORTED 0 - 22 ng/L [place], [place] Provider Note - EDon 019 Provider Note - ED TIME SEEN: Time [id number] 20:28 CHIEF COMPLAINT/REASON FOR VISIT: Chief Complaintdizzy(1) [...] Diastolic (mm Hg) Diastolic (mm Hg) 03-Oct-2018 21:[id number] Orthostatic Sitting Pulse (beats/min) Heart Rate (beats/min)Orthostatic Standing BP Systolic (mm Hg) Standing Systolic/Orthostatic Standing BP Diastolic (mm Hg) Diastolic (mm Hg)Orthostatic Standing Pulse (beats/min) Heart Rate (beats/min) [id number] LAB AND MICRO RESULTS (24 hours): General [...] - 10.5 x10E9/L] RBC4.87[4.18 - 5.87 x10E12/L] Qemxncanmp85.0[13.4 - 17.5 g/dL] Cnryzdhngi84.9[37.5 - 49.2 %] MCV_86.0[80.0 - 100.0 fL] MCH_28.7[26.5 - 33.0 pg] MCHC_33.4[32.6 - 36.0 g/dL] Platelets Yrazr869[144 - 400 x10E9/L] Mean Plt Vol_11.8Image has been removed.[7.2 - 10.3 fL] RDW_12.9[11.4 - 16.0 %] General Chemistry: 03-Oct-2018 20:47 Comprehensive Metabolic Panel ResultValueAbnRangeText Sodium, Gaapl836[136 - 144 mmol/L] Potassium, Level4.1[3.4 - 5.1 mmol/L] Ixtbomkh581[98 - 107 mmol/L] CO228[22 - 32 mmol/L] Anion Gap, Serum_6.0[5.0 - 19.0 mmol/L] Glucose, Level96[70 - 100 mg/dL] Blood Urea Nitrogen, Serum18[8 - 26 mg/dL] Creatinine1.12[0.60 - 1.30 mg/dL] Calcium, Level9.6[8.6 - 10.6 mg/dL] Total Protein6.9[6.5 - 8.1 g/dL] Albumin, Level4.5[3.5 - 5.0 g/dL] Bilirubin Total0.3[0.3 - 1.2 mg/dL] Aspartate Ptalgeifxeup43[9 - 39 IU/L] Alanine Sxxopiehkaxu15[7 - 45 IU/L] Alkaline Helhatdmcqn21[32 - 91 IU/L] BUN/Creatinine Ratio_16.0 Osmolality-Calc_274[ mOsm/kg] 03-Oct-2018 20:47 Lipase, Serum ResultValueAbnRangeText Lipase, Serum13[9 - 82 U/L] 03-Oct-2018 20:47 Troponin Reflex ResultValueAbnRangeText Troponin<.02[ ng/mL]<0.04 Normal 0.04 - 0.50 Possible cardiac damage >0.50 Consistent with cardiac damage DIAGNOSTIC TESTS AND OTHER RESULTS (24 hours): CTs: 03-Oct-2018 21:31 CT Head without Contrast ResultText CT Head without ContrastMRN: [id number] Patient Name: HOSEA ALVAREZ STUDY: PRIYA/CT/HEAD W/O; 10/03/2018 9:23 pm INDICATION: dizziness. COMPARISON: None. ACCESSION NUMBER(S): [id number] ORDERING CLINICIAN: IRMA BUCHANAN TECHNIQUE: Noncontrast axial [...] pm INDICATION: cp. COMPARISON: 09/25/2018 ACCESSION NUMBER(S): [id number] ORDERING CLINICIAN: IRMA BUCHANAN FINDINGS: The cardiac [...] shoulder was injured. He went to the [facility] and they started him on Flexeril after evaluating him. However, he is also been feeling a little bit lightheaded and dizzy since starting this medication. He was also at [facility] on September 25 with complaint of [...] drift. Speech is clear and intelligible. Equal doctor chiropractic strength to hand squeezing, but patient doesn't [...] [place] Findings: Normal sinus rhythm, [address] interval, QRS interval, QTC are normal. Left [...] Chart was dictated with the use of [employer] software within the framework of the current [...] From Triage Note, Emergency 10/03/2018 20:29 Normal [facility] Auto Diffon 10-03-2018 Basophils (Bld) [#/Vol] 0.0 10*3/uL Normal 0.0-0.2 [facility] Basophils/100 WBC (Bld) 0.2 % Normal 0.0-2.4 [facility] Eosinophils (Bld) [#/Vol] 0.1 10*3/uL Normal 0.0-0.5 [facility] Eosinophils/100 WBC (Bld) 1.6 % Normal 0.7-6.5 [facility] Lymphocytes (Bld) [#/Vol] 1.1 10*3/uL Normal 1.1-3.5 [facility] Lymphocytes/100 WBC (Bld) 22.1 % Normal 17.0-44.0 [facility] Monocytes (Bld) [#/Vol] 0.4 10*3/uL Normal 0.3-1.0 [facility] Monocytes/100 WBC (Bld) 8.0 % Normal 5.3-12.5 [facility] Neutrophils (Bld) [#/Vol] 3.5 10*3/uL Normal 1.8-7.5 [facility] Neutrophils/100 WBC (Bld) 68.1 % Normal 41.0-73.8 [facility] CMPon 10-03-2018 Albumin [Mass/Vol] 4.5 g/dL Normal 3.5-5.0 [place] [facility] Alk Phos 51 IU/L Normal 32-91 [facility] ALT [Catalytic activity/Vol] 23 U/L Normal 7-45 [facility] Anion gap [Moles/Vol] 6.0 mmol/L Normal 5.0-19.0 [facility] AST [Catalytic activity/Vol] 16 U/L Normal 9-39 [facility] Bilirubin [Mass/Vol] 0.3 mg/dL Normal 0.3-1.2 [facility] Bun/CretRatio 16.0 Normal [facility] Calcium [Mass/Vol] 9.6 mg/dL Normal 8.6-10.6 [facility] Chloride [Moles/Vol] 102 mmol/L Normal 98-107 [facility] CO2 [Moles/Vol] 28 mmol/L Normal 22-32 [facility] Creatinine [Mass/Vol] 1.12 mg/dL Normal 0.60-1.30 [facility] Glucose [Mass/Vol] 96 mg/dL Normal 70-100 [place] [facility] Osmolality-Calc 274 mOsm/kg Normal [facility] Potassium [Moles/Vol] 4.1 mmol/L Normal 3.4-5.1 [facility] Protein [Mass/Vol] 6.9 g/dL Normal 6.5-8.1 [facility] Sodium [Moles/Vol] 136 mmol/L Normal 136-144 [place] [facility] Urea nitrogen [Mass/Vol] 18 mg/dL Normal 8-26 [facility] Lipaseon 10-03-2018 Lipase [Catalytic activity/Vol] 13 U/L Normal 9-82 [facility] PRIYA/CHEST 2 VIEWSon 10-03-19 19 PRIYA/CHEST 2 VIEWS Patient Name: HOSEA ALVAREZ STUDY: PRIYA/CHEST 2 VIEWS; 10/03/2018 9:03 pm INDICATION: cp. COMPARISON: 09/25/2018 ACCESSION NUMBER(S): [id number] ORDERING CLINICIAN: IRMA BUCHANAN FINDINGS: The cardiac silhouette size is enlarged, stable. The thoracic aorta is tortuous.There is no focal consolidation, pleural effusion, edema or pneumothorax. No acute osseous abnormality. IMPRESSION: Enlarged cardiac silhouette size and tortuous aorta, stable. No focal consolidation, pleural effusion, edema or pneumothorax but Dictated by: Electronically Signed by: Reidivelissemehul Rochelle Malikani Electronically Signed on: 10/03/2018 9:09 PM Normal [facility] PRIYA/CT/HEAD W/Oon 10-03-2018 PRIYA/CT/HEAD W/O Patient Name: HOSEA ALVAREZ STUDY: PRIYA/CT/HEAD W/O; 10/03/2018 9:23 pm INDICATION: dizziness. COMPARISON: None. ACCESSION NUMBER(S): [id number] ORDERING CLINICIAN: IRMA BUCHANAN TECHNIQUE: Noncontrast axial [...] Electronically Signed on: 10/03/2018 9:31 PM Normal [facility] Troponin Rfxon 10-03-2018 Troponin I.cardiac [Mass/Vol] ng/mL Normal [facility] Comment on above: Order Comment: Trop Rfx Replaces Trop order Result Comment: <0.04 Normal 0.04 - 0.50 Possible cardiac damage >0.50 Consistent with cardiac damage zCBCDon 10-03-2018 Erythrocyte distribution width (RBC) [Ratio] 12.9 % Normal 11.4-16.0 [facility] Hematocrit (Bld) [Volume fraction] 41.9 % Normal 37.5-49.2 [facility] Hemoglobin (Bld) [Mass/Vol] 14.0 g/dL Normal 13.4-17.5 [facility] MCH (RBC) [Entitic mass] 28.7 pg Normal 26.5-33.0 [facility] MCHC (RBC) [Mass/Vol] 33.4 g/dL Normal 32.6-36.0 [facility] MCV (RBC) [Entitic vol] 86.0 fL Normal 80.0-100.0 [facility] Mean Plt Vol 11.8 fL High 7.2-10.3 [facility] Platelets (Bld) [#/Vol] 153 10*3/uL Normal 144-400 [facility] RBC (Bld) [#/Vol] 4.87 x10E12/L Normal 4.18-5.87 [facility] WBC (Bld) [#/Vol] 5.1 10*3/uL Normal 4.3-10.5 [facility] APTTon 09-25-2018 aPTT Coag (Bld) [Time] 31 s Normal 28-38 [facility] Auto Diffon 09-25-2018 Basophils (Bld) [#/Vol] 0.0 10*3/uL Normal 0.0-0.2 [facility] Basophils/100 WBC (Bld) 0.2 % Normal 0.0-2.4 [facility] Eosinophils (Bld) [#/Vol] 0.1 10*3/uL Normal 0.0-0.5 [facility] Eosinophils/100 WBC (Bld) 1.3 % Normal 0.7-6.5 [facility] Lymphocytes (Bld) [#/Vol] 1.1 10*3/uL Normal 1.1-3.5 [facility] Lymphocytes/100 WBC (Bld) 21.4 % Normal 17.0-44.0 [facility] Monocytes (Bld) [#/Vol] 0.4 10*3/uL Normal 0.3-1.0 [facility] Monocytes/100 WBC (Bld) 7.4 % Normal 5.3-12.5 [facility] Neutrophils (Bld) [#/Vol] 3.7 10*3/uL Normal 1.8-7.5 [facility] Neutrophils/100 WBC (Bld) 69.7 % Normal 41.0-73.8 [facility] CMPon 09-25-2018 Albumin [Mass/Vol] 3.8 g/dL Normal 3.5-5.0 [facility] Alk Phos 50 IU/L Normal 32-91 [facility] ALT [Catalytic activity/Vol] 28 U/L Normal 14-63 [facility] Anion gap [Moles/Vol] 10.0 mmol/L Normal 5.0-19.0 [facility] AST [Catalytic activity/Vol] 25 U/L Normal 15-41 [facility] Bilirubin [Mass/Vol] 0.3 mg/dL Normal 0.3-1.2 [facility] Bun/CretRatio 20.8 Normal [facility] Calcium [Mass/Vol] 8.7 mg/dL Normal 8.1-10.1 [facility] Chloride [Moles/Vol] 102 mmol/L Normal 98-107 [facility] CO2 [Moles/Vol] 24 mmol/L Normal 22-32 [facility] Creatinine [Mass/Vol] 0.96 mg/dL Normal 0.60-1.30 [facility] Glucose [Mass/Vol] 93 mg/dL Normal 70-100 [facility] Osmolality-Calc 274 mOsm/kg Normal [facility] Potassium [Moles/Vol] 3.7 mmol/L Normal 3.4-5.1 [facility] Protein [Mass/Vol] 7.0 g/dL Normal 6.5-8.1 [facility] Sodium [Moles/Vol] 136 mmol/L Normal 136-144 [place] [facility] Urea nitrogen [Mass/Vol] 20 mg/dL Normal 8-26 [facility] CT/CTA ABD/PEL W&OR W/Oon CT/CTA ABD/PEL W&OR W/O Patient Name: HOSEA ALVAREZ STUDY: CT/CTA ABD/PEL W+OR W/O; 09/25/2018 9:26 pm INDICATION: AAA. COMPARISON: None. ACCESSION NUMBER(S): [id number] ORDERING CLINICIAN: MONALISA LUNA TECHNIQUE: CT of [...] Electronically Signed on: 09/25/2018 9:51 PM Normal [facility] CT/CTA CHEST W/AND/OR W/Oon 09-25-2018 CT/CTA CHEST W/AND/OR W/O Patient Name: HOSEA ALVAREZ STUDY: CT/CTA CHEST W/AND/OR W/O; 09/25/2018 9:26 pm INDICATION: Thoracic Dissection Protocol;. COMPARISON: None. ACCESSION NUMBER(S): [id number] ORDERING CLINICIAN: MONALISA LUNA TECHNIQUE: Using multi-detector [...] Lund Electronically Signed on: 09/25/2018 9:46 PM [facility] Provider Note - EDon 019 Provider Note - ED TIME SEEN: Time [id number]-[id number] 19:05 CHIEF COMPLAINT/REASON FOR VISIT: Chief Complaintnot [...] Medicaid there, thus when he is in [place] he goes to a free medical clinic and is unable to continue his blood pressure medications. He is currently taking metoprolol but has not had a dose in 5 days. He complains of having blood pressure spikes that will resolve if he rests. Today he was having 1 and was seen at the [facility], and encouraged to be evaluated in [...] Mean (mm Hg)Respiration (breaths/min) Respiration (breaths/min) 25-Sep-2018 19:[id number] SpO2 (%) SpO2 (%)O2 Therapy Delivery Method [...] - 10.5 x10E9/L] RBC4.59[4.18 - 5.87 x10E12/L] Pjprhgwpzw25.1Image has been removed.[13.4 - 17.5 g/dL] Gvqxcmgpgi65.2[37.5 - 49.2 %] MCV_85.4[80.0 - 100.0 fL] MCH_28.5[26.5 - 33.0 pg] MCHC_33.4[32.6 - 36.0 g/dL] Platelets Hdowp097[144 - 400 x10E9/L] Mean Plt Vol_10.6Image has [...] 25-Sep-2018 19:53 Comprehensive Metabolic Panel ResultValueAbnRangeText Sodium, Ncvtr917[136 - 144 mmol/L] Potassium, Level3.7[3.4 - 5.1 mmol/L] Bikgqmsy837[98 - 107 mmol/L] CO224[22 - 32 mmol/L] Anion Gap, Serum_10.0[5.0 - 19.0 mmol/L] Glucose, Level93[70 - 100 mg/dL] Blood Urea Nitrogen, Serum20[8 - 26 mg/dL] Creatinine0.96[0.60 - 1.30 mg/dL] Calcium, Level8.7[8.1 - 10.1 mg/dL] Total Protein7.0[6.5 - 8.1 g/dL] Albumin, Level3.8[3.5 - 5.0 g/dL] Bilirubin Total0.3[0.3 - 1.2 mg/dL] Aspartate Utdnwedzmkii34[15 - 41 IU/L] Alanine Jcpjpzxhccfx65[14 - 63 IU/L] Alkaline Rpjfcyvohge35[32 - 91 IU/L] BUN/Creatinine Ratio_20.8 Osmolality-Calc_274[ mOsm/kg] 25-Sep-2018 19:53 Troponin Reflex ResultValueAbnRangeText Troponin<0.03[ ng/mL]<0.04 Normal 0.04 - 0.50 Possible cardiac damage >0.50 Consistent with cardiac damage DIAGNOSTIC TESTS AND OTHER RESULTS (24 hours): CTs: 25-Sep-2018 21:46 CTA Chest with Contrast ResultText CTA Chest with ContrastMRN: [id number] Patient Name: HOSEA ALVAREZ STUDY: CT/CTA CHEST W/AND/OR W/O; 09/25/2018 9:26 pm INDICATION: Thoracic Dissection Protocol;. COMPARISON: None. ACCESSION NUMBER(S): [id number] ORDERING CLINICIAN: MONALISA LUNA TECHNIQUE: Using multi-detector [...] ResultText CTA Abdomen and Pelvis with ContrastMRN: [id number] Patient Name: HOSEA ALVAREZ STUDY: CT/CTA ABD/PEL W+OR W/O; 09/25/2018 9:26 pm INDICATION: AAA. COMPARISON: None. ACCESSION NUMBER(S): [id number] ORDERING CLINICIAN: MONALISA LUNA TECHNIQUE: CT of [...] pm INDICATION: CP. COMPARISON: None. ACCESSION NUMBER(S): [id number] ORDERING CLINICIAN: MONALISA LUNA FINDINGS: AP and lateral views of the chest are obtained. There is no focal consolidation, pleural effusion or pneumothorax. The cardiomediastinal silhouette is within normal limits. The trachea is midline. No acute osseous abnormality. IMPRESSION: No acute intrathoracic findings. Dictated by: Electronically Signed by: Eugenia Avalos Electronically Signed on: 09/25/2018 8:28 PM EKG RESULTS/INTERPRETATION: EKG Date/Wxsx14-Akm-7575 18:33 Rate80 CommentsNormal sinus rhythm, no QRS [...] aortic aneurysm as scheduled. DIAGNOSES/PROBLEM LIST: Problem BvjnAyofYfmuawQMG-9OTM-1 0 Noncompliance with medication regimenED IbYiwwziV63.81Z91.14 Uncontrolled hypertensionED GeEgwdpt095.9I10 History of aortic aneurysmED FeWdwadzA28.59Z86.79 DISCHARGE DISPOSITION: Disposition: discharged Discharge Type: home [...] Triage Note, Emergency 09/25/2018 6:24 PM Normal [facility] Pton 09-25-2018 INR Coag (PPP) [Relative time] 1.0 {INR} Normal 0.9-1.1 [facility] Comment on above: Result Comment: Recommended ranges [...] Coag (PPP) [Time] 11.2 s Normal 9.7-12.7 [facility] RAD/CHEST 2V FRONTAL/LATon 0 09-25-2018 RAD/CHEST 2V FRONTAL/LAT Patient Name: HOSEA ALVAREZ STUDY: RAD/CHEST 2V FRONTAL/LAT;; 09/25/2018 8:02 pm INDICATION: CP. COMPARISON: None. ACCESSION NUMBER(S): [id number] ORDERING CLINICIAN: MONALISA LUNA FINDINGS: AP and lateral views of the chest are obtained. There is no focal consolidation, pleural effusion or pneumothorax. The cardiomediastinal silhouette is within normal limits. The trachea is midline. No acute osseous abnormality. IMPRESSION: No acute intrathoracic findings. Dictated by: Electronically Signed by: Eugenia Avalos Electronically Signed on: 09/25/2018 8:28 PM Normal [facility] Trop POCTon 09-25-2018 Troponin I.cardiac [Mass/Vol] ng/mL Normal [facility] Comment on above: Order Comment: Tropo jimmie POCT added per lab protocol Result Comment: <0.04 : Negative 0.04 - 0.50 : Possible Cardiac Damage >0.5 : Consistent With Cardiac Damage Troponin Rfxon 09-25-2018 Troponin I.cardiac [Mass/Vol] ng/mL Normal [facility] Comment on above: Order Comment: Trop Rfx Replaces Trop order Result Comment: <0.04 Normal 0.04 - 0.50 Possible cardiac damage >0.50 Consistent with cardiac damage zCBCDon 09-25-2018 Erythrocyte distribution width (RBC) [Ratio] 12.9 % Normal 11.4-16.0 [facility] Hematocrit (Bld) [Volume fraction] 39.2 % Normal 37.5-49.2 [facility] Hemoglobin (Bld) [Mass/Vol] 13.1 g/dL Low 13.4-17.5 [facility] MCH (RBC) [Entitic mass] 28.5 pg Normal 26.5-33.0 [facility] MCHC (RBC) [Mass/Vol] 33.4 g/dL Normal 32.6-36.0 [facility] MCV (RBC) [Entitic vol] 85.4 fL Normal 80.0-100.0 [facility] Mean Plt Vol 10.6 fL High 7.2-10.3 [facility] Platelets (Bld) [#/Vol] 156 10*3/uL Normal 144-400 [facility] RBC (Bld) [#/Vol] 4.59 x10E12/L Normal 4.18-5.87 [facility] WBC (Bld) [#/Vol] 5.4 10*3/uL Normal 4.3-10.5 [facility] BMPon 02-25-2018 Anion gap 7 mmol/L Normal 5-16 [facility] Comment on above: Order Comment: Campu s: M Performed By: #### L 500.95742, L500.13524 ####[facility] [id number] [place], [place] [address]Ow# [phone] BUN/Creatinine Ratio 12 mg/mg Low 15-24 [facility] Comment on above: Order Comment: Campu s: M Performed By: #### L 500.47831, L500.34193 ####[facility] [id number] [place], [place] [address]Xo# [phone] Calcium 8.9 mg/dL Normal 8.5-10.1 [facility] Comment on above: Order Comment: Campu s: M Performed By: #### L 500.55965, L500.07586 ####[facility] [id number] [place], [place] [address]Qq# [phone] Chloride 102 mmol/L Normal 98-107 [facility] Comment on above: Order Comment: Campu s: M Performed By: #### L 500.01354, L500.06681 ####[facility] [id number] [place], [place] [address]Af# [phone] CO2 28 mmol/L Normal 21-32 [facility] Comment on above: Order Comment: Campu s: M Performed By: #### L 500.86623, L500.05282 ####[facility] [id number] [place], [place] [address]Aq# [phone] Creatinine 1.080 mg/dL Normal 0.670-1.170 [facility] Comment on above: Order Comment: Campu s: M Result Comment: Yanni ents receiving either N-Acetylcysteine (NAC) orMetamizole prior to venipuncture, may have falsely depressedresults. Performed By: #### L 500.19269, L500.09526 ####[place] [address] [place] [id number]# [phone] Glucose mass conc 87 mg/dL Normal 70-100 [facility] [place] Comment on above: Order Comment: Campu s: M Result Comment: 70-1 00- Normal Fasting; 100-125 Impaired Fasting; greaterthan 126 on more than one result- Diabetes. ADA guidelines.Results may be falsely elevated after the administration ofSulfapyridine.Results may be falsely depressed after the administration ofSulfasalazine. Performed By: #### L 500.46942, L500.04896 ####[facility] [id number] [place], [place] [address]Ig# [phone] Potassium molar conc 3.8 mmol/L Normal 3.5-5.1 [facility] Comment on above: Order Comment: Campu s: M Performed By: #### L 500.22306, L500.22612 ####[facility] [id number] [place], [place] [address]Xt# [phone] Sodium 137 mmol/L Normal 136-145 [facility] Comment on above: Order Comment: Campu s: M Performed By: #### L 500.74349, L500.93532 ####[facility] [id number] [place], [place] [address]Dz# [phone] Urea nitrogen 13 mg/dL Normal 7-[address] [facility] [place] Comment on above: Order Comment: Campu s: M Performed By: #### L 500.56348, L500.85690 ####[place] [address]Ph# [phone] CBC W/DIFFon 02-25-2018 BASO ABS 0.00 K/CU MM Normal 0-0.2 [facility] [place] Comment on above: Order Comment: Campu s: M Performed By: #### L 200.12854 ####[address] [address]Of# [phone] Basophils/100 WBC Auto (Bld) 0.4 % Normal 0-2 [facility] Comment on above: Order Comment: Campu s: M Performed By: #### L 200.89169 ####[address] [address]Im# [phone] EOS ABS 0.10 K/CU MM Normal 0-0.5 [facility] Comment on above: Order Comment: Campu s: M Performed By: #### L 200.79878 ####[address] [address]Zs# [phone] Eosinophils/100 leukocytes 1.9 % Normal 0-5 [facility] Comment on above: Order Comment: Campu s: M Performed By: #### L 200.77132 ####[facility] [id number] [place] [address]Zz# [phone] Erythrocyte distribution width Auto Ratio (RBC) 13.0 % Normal 11-14.5 [facility] Comment on above: Order Comment: Campu s: M Performed By: #### L 200.37735 ####[facility] [id number] [place], [place] [address]Ph# [phone] Erythrocytes (RBC) 5.33 M/CU MM Normal 4.50-6.00 [facility] [place] Comment on above: Order Comment: Campu s: M Performed By: #### L 200.62368 ####[facility] [id number] [place], [place] [address]Ty# [phone] Hematocrit (HCT) 44.0 % Normal 41.0-53.0 [facility] [place] Comment on above: Order Comment: Campu s: M Performed By: #### L 200.99605 ####[place] [address]Ph# [phone] Hemoglobin mass conc (Bld) 14.6 g/dL Normal 13.5-17.5 [facility] Comment on above: Order Comment: Campu s: M Performed By: #### L 200.53135 ####[place] [address]Ph# [phone] IMMATR GRAN ABS 0.00 K/CU MM Normal Less than 2 [facility] Comment on above: Order Comment: Campu s: M Performed By: #### L 200.77158 ####[place] [address]Ph# [phone] IMMATURE GRAN % 0.0 % Normal Less than 2 [facility] [place] Comment on above: Order Comment: Campu s: M Performed By: #### L 200.84309 ####[facility] [id number] [place] [address]Bb# [phone] Lymphocytes 1.30 K/CU MM Normal 0.9-4.[address] [facility] [place] Comment on above: Order Comment: Campu s: M Performed By: #### L 200.45462 ####[facility] [id number] [place] [address]Tl# [phone] Lymphocytes/100 leukocytes 26.7 % Normal 20-40 [facility] Comment on above: Order Comment: Campu s: M Performed By: #### L 200.01330 ####[facility] [id number] [place], [place] [address]Pw# [phone] MCHC mass conc (RBC) 33.2 g/dL Normal 32.0-36.0 [facility] [place] Comment on above: Order Comment: Campu s: M Performed By: #### L 200.43540 ####[facility] [id number] [place], [place] [address]Qn# [phone] MCV 82.6 fL Normal 80.0-99.0 [facility] Comment on above: Order Comment: Campu s: M Performed By: #### L 200.80291 ####[place] [address]Ph# [phone] MONO ABS 0.40 K/CU MM Normal 0.1-1.1 [facility] Comment on above: Order Comment: Campu s: M Performed By: #### L 200.73902 ####[facility] [id number] [place], [place] [address]Ph# [phone] Monocytes/100 leukocytes 7.9 % Normal 2-10 [facility] Comment on above: Order Comment: Campu s: M Performed By: #### L 200.62544 ####[facility] [id number] [place] [id number]# [phone] NEUTROPHIL ABS 3.10 K/CU MM Normal 2.0-8.3 [facility] [place] Comment on above: Order Comment: Campu s: M Performed By: #### L [id number] ####[facility] [id number] [place] [id number]# [phone] Neutrophils/100 WBC Auto (Bld) 63.1 % Normal 45-75 [facility] Comment on above: Order Comment: Campu s: M Performed By: #### L [id number] ####[facility] [id number] [place] [id number]# [phone] NRBC 0.0 % Normal Less than 1 [facility] Comment on above: Order Comment: Campu s: M Performed By: #### L 200.24309 ####[facility] [id number] [place], [place] [address]Ec# [phone] Platelet mean volume (PMV) 11.8 fL Normal 9.4-12.4 [facility] Comment on above: Order Comment: Campu s: M Performed By: #### L 200.64656 ####[facility] [id number] [place], [place] [address]Pd# [phone] Platelets 157 K/CU MM Normal 150-450 [facility] Comment on above: Order Comment: Campu s: M Performed By: #### L 200.62980 ####[facility] [id number] [place], [place] [address]Sc# [phone] WBC (Leukocytes) 4.8 K/CU MM Normal 4.5-11.0 [facility] Comment on above: Order Comment: Campu s: M Performed By: #### L 200.54537 ####[facility] [id number] [place], [place] [address]Jo# [phone] CHEST PA/AP AND LATERALon CHEST PA/AP AND [...] RUIZ M.D. Signed By: SAHIL RUIZ M.D. [facility] 02-25-2018 ED DOC PHYS ICIAN ASSESSMENT ======RECORDS: FlexChartDataEvent Time: 02/24/2018 23:45Status: [facility] Al[facility] [[id number] ]Attending [id number] / Angelina / 07/20/EvieChart (V2b)Chart created at 02/24/2018 23:37 by Nabeel Rojas closed at 02/25/2018 00:19Entry in Emergency Department at 02/24/2018 22:31,departure at 02/25/2018 00:47Patient Name: Jesu Alvarez Record Number: [id number]: 02/24/2018 23:37 EnteredDepartment at: 02/24/2018 22:31 Patient Seen at:02/24/2018 23:19 Historian: PatientChief Complaint:pt having high BP and chest pressure afterhiking today.Temperature: 99.1 F (37.3 C). Pulse: 82. Respiratory Rate:18. Blood-pressure:154/98. Oxygen Saturation: 97%.History of Present Illness:Patient is complaining of post chest pressure. He had somewhile he was hiking he has 100 pound backpackthat he walks around with doing the area canal. [facility] He has family here sohe didnt decanted needle dropped [place] his [place]his [place] had some chest pressure earlier today but itsgone now since hes been resting here. He sayshe has family here and he [place] when he gotthe pressure and he made his way over here. He [facility] PATIENT NAME: CAMILA ALVAREZ [facility] MEDICAL REC #: [id number], [place] [address] DEPARTMENT CHART EMERGENCY DEPARTMENT PHYSICIANis on metoprolol [...] Occasional.Recreational Drugs: None.Family History: Reviewed RN Note [facility] PATIENT NAME: CAMILA ALVAREZed Warren MEDICAL REC #: [id number], [place] [address] DEPARTMENT CHART EMERGENCY DEPARTMENT PHYSICIANPhysical Examination: General: [...] No old Cardiogramavailable for comparisonImaging Study Obtained: [facility] PATIENT NAME: CAMILA ALVAREZ [facility]. [facility] REC #: [id number], [place] [address] DEPARTMENT CHART EMERGENCY DEPARTMENT PHYSICIANCHEST PA/AP LATERALRadiology: [...] parts of the country becausehis tests that [facility] had in the past dont follow himeverywhere [...] StableMSE completed.I was the primary ED attending.. [facility] PATIENT NAME: CAMILA ALVAREZ Kendra [place] MEDICAL REC #: [id number], [place] [address] DEPARTMENT CHART EMERGENCY DEPARTMENT PHYSICIANPatient transported to [...] get your prescriptions filled.EKG and Radiology Results:A expressive art therapist or radiologist will review any EKG or [facility] PATIENT NAME: CAMILA ALVAREZ Kendra Warren MEDICAL REC #: [id number], [place] [address] DEPARTMENT CHART EMERGENCY DEPARTMENT PHYSICIANradiology results provided [...] take the time to complete this short [facility] PATIENT NAME: [facility] MEDICAL REC #: [id number], [place] [address] DEPARTMENT CHART EMERGENCY DEPARTMENT PHYSICIANsurvey. If you [...] below indicates consent for Case Managementto contact [facility] providers in [facility] to meet your ongoing healthcare needs. This willallow forcontinuity of care once you leave theEmergency Department. This exchange of informationwillinclude, but not be limited to, disclosure of yourpatient information and possible release of records. ====DEMOGRAPHICS======== [employer] Patient: JESU Gentile: MDOB: 1970Age: 47 yrAccount No: [id number]: [id number] Date: 02/24/2018Address[address]: [place] [address] =REGISTRATION =========ED Number: [id number]: Marital Status: SFinancial Class: SELF TRIAGE ==Priority: 3 - UrgentComplaint: Chest Pressure [facility] PATIENT NAME: CAMILA ALVAREZ Kendra Warren MEDICAL REC #: [id number], [place] [address] DEPARTMENT CHART EMERGENCY DEPARTMENT PHYSICIANComplaint: HypertensionStated Complaint: pt having high BP and chestpressure after hiking today.Arrival Date: 02/24/2018 22:31Triage Date: 02/24/2018 22:39Mode of Arrival: AmbulanceTransfer From: * HomeWC: NLanguage: EnglishTransport: [place] [facility] BED A 02 In: 02/24/2018 22:41:16 02/24/201822:41:16 MAFAA02 (Removed From) Out: 02/25/2018 00:47:16002/25/2018 00:47:16 MAFA PROVIDERS =====Emergency Medical Service Provider Contact:02/24/2018 22:39:10 EMSEnd:BROOKLYNN TREVINO Provider Contact: 02/24/201822:41:10 MAFAEnd:DO Nabeel Harris Provider Contact: 02/24/201823:19:09 CKEnd: ==TRIAGE HISTORY ===ALLERGIESAllergic To: No Known Allergies 02/24/2018 22:41 MAFACURRENT MEDSName: None 02/24/2018 22:41 MAFA [facility] PATIENT NAME: CAMILA ALVAREZ [facility] MEDICAL REC #: [id number], [place] [address] DEPARTMENT CHART EMERGENCY DEPARTMENT PHYSICIANPAST SURGERY HISTSurgery: hemorrhoids 02/24/2018 22:41 MAFAPAST SOCIAL HISTSocial History: Behavior age appropriate 02/24/201822:41 MAFASocial History: Communicates without vwfrlhwoyl83/04/2018 22:41 MAFASocial History: Lives alone 02/24/2018 22:41 [...] 02/25/201800:11 MAFAElimination/Toiletin g NPain 4Position Comfortable Y [facility] PATIENT NAME: [facility] MEDICAL REC #: [id number], [place] [address] DEPARTMENT CHART EMERGENCY DEPARTMENT PHYSICIANSafe Environment YFall Risk Change N002/24/2018 22:40 Patient Interaction - Call lightplaced within reach. 02/25/2018 00:11 MAFA02/24/2018 22:40 Patient Interaction - Introduce selfto Patient. 02/25/2018 00:11 MAF02/24/2018 22:40 Patient Interaction - Name Band on Pt02/25/2018 00:11 MAFA02/24/2018 23:35 POC testing results and criticalvalues - POC Troponin 0.00 on ED 1 dpwkzfshhe74/04/2018 23:45 HMHA02/25/2018 00:10 Hourly Rounding - Rounding 02/25/201800:11 MAFAElimination/Toiletin g NPain 0Position Comfortable YSafe Environment YAssessment Note call light within reach. family at thebedside.Fall Risk Change N002/25/2018 00:11 Primary DOC Guide - A. 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 No (0)Impaired Gait? No (0) [facility] PATIENT NAME: [facility] MEDICAL REC #: [id number], [place] [address] DEPARTMENT CHART EMERGENCY DEPARTMENT PHYSICIANMobility Assist Device [...] now: NoFamily Violence Clinical Observation All Negative Kxnxpr6402/25/2018 00:38 Admit/Discharge - Ambulated withsteady gait home 02/25/2018 00:38 MAFA02/25/2018 00:38 Admit/Discharge - Discharge 02/25/201800:38 [facility]02/25/2018 00:38 Admit/Discharge - Discharge infomationreviewed with pt 02/25/2018 00:38 [facility]02/25/2018 00:38 Admit/Discharge - Dischargeinstruction reviewed 02/25/2018 00:38 MAFA MEDICATIONS ===IV [facility] PATIENT NAME: CAMILA ALVAREZ Dr. [facility] MEDICAL REC #: [id number], [place] [address] DEPARTMENT CHART EMERGENCY DEPARTMENT PHYSICIAN =====IV Fluid: [...] 00:38 MAFAVS-FHT Time: 02/25/2018 00:38 02/25/2018 00:38MAFA [facility] PATIENT NAME: CAMILA ALVAREZ Dr. Warren [facility] REC #: [id number], [place] [address] DEPARTMENT CHART EMERGENCY DEPARTMENT PHYSICIANVS-Notes Time: 02/25/2018 [...] troponin 02/24/2018 23:45N/AOrdered: 02/24/2018 22:43 By Protocol [facility] PATIENT NAME: CAMILA ALVAREZ Kendra [place] MEDICAL REC #: [id number], [place] [address] DEPARTMENT CHART EMERGENCY DEPARTMENT PHYSICIANCompleted Time: 02/24/2018 [...] ProtocolCancelled: 02/24/2018 23:36 MAFACancelled Reason: not needed [facility] PATIENT NAME: [facility] MEDICAL REC #: [id number], [place] [address] DEPARTMENT CHART EMERGENCY DEPARTMENT PHYSICIANPOC troponin 02/24/2018 [...] Referral:02/25/2018 00:21 =PRESCRIPTIONS ======CHARGES =====SIGNATURE Nabeel BARRON [facility] PATIENT NAME: CAMILA ALVAREZ Kendra Warren MEDICAL REC #: [id number], [place] [address] DEPARTMENT CHART EMERGENCY DEPARTMENT PHYSICIAN [facility] PATIENT NAME: CAMILA AVLAREZ Kendra [facility] MEDICAL REC #: [id number], [place] [address] DEPARTMENT CHART EMERGENCY DEPARTMENT PHYSICIAN Normal [facility] ED Documentation This is a preliminar y report only, as the practitioner review and authentication has not occurred. [facility] EKGon 02-25-2018 EKG Procedure Date [...] Confirmed By:Indu ROSENBERG M.D.FACC _ AlokDDandT: 02/24/18 2249TDandT:[facility] PATIENT NAME: CAMILA ALVAREZ Kendra [place] MEDICAL REC #: [id number], [place] [address] DATE:DISCHARGE DATE: 02/25/18ATTENDING PHY: Nabeel Harris DOELECTROCARDIOGRAM REPORTCLBc:[facility] PATIENT NAME: CAMILA ALVAREZ [facility] MEDICAL REC #: [id number], [place] [address] DATE:DISCHARGE DATE: 02/25/18ATTENDING PHY: Nabeel Harris DOELECTROCARDIOGRAM REPORT Normal [facility] ELECTROCARDIOGRAM REPORT Normal [facility] GFR ESTon 02-25-2018 IF AMER Greater than 60 Normal [facility] Comment on above: Order Comment: Miguel Angelu s: M Performed By: #### L 500.04566, L500.64874 ####[facility] [id number] [place], [place] [address]Ov# [phone] IF non-AFR AMER Greater than 60 Normal [facility] Comment on above: Order Comment: Campu s: M Performed By: #### L 500.86468, L500.84644 ####[facility] [id number] [place], [place] [address]Oy# [phone] TROPONIN I POCon 02-25-2018 Troponin I.cardiac mass conc 0.00 ng/mL Normal 0.0-0.06 [facility] Comment on above: Result Comment: 0.0 - 0.06 NG/ML - NON-DIAGNOSTIC (REFERENCE RANGE)0.07 - 0.59 NG/ML - INDETERMINATEGreater than or equal to 0.6 NG/ML - INDICATIVE OFMYOCARDIAL DAMAGE Basic Metabolic Panelon Calcium 9.3 mg/dL Normal 8.4-10.2 [employer] Comment on above: Performed By: #### H EMOG, BMP3, CK3 ####[employer] [place] [address] Glucose mass conc 107 mg/dL High 70-100 [facility] Comment on above: Performed By: #### H EMOG, BMP3, CK3 ####[employer] [place] [address] Urea nitrogen 13 mg/dL Normal 7-20 [facility] Comment on above: Performed By: #### H EMOCristobal, BMP3, CK3 ####[facility] [place] [address] Anion gap 9 Normal [facility] Comment on above: Performed By: #### H EMOCristobal, BMP3, CK3 ####[place] [address] [place] [address] CO2 25 mmol/L Normal 22-30 [facility] Comment on above: Performed By: #### H EMOCristobal, BMP3, CK3 ####[place] [address] [place] [address] Creatinine 0.93 mg/dL Normal 0.52-1.25 [facility] Comment on above: Performed By: #### H LESA, BMP3, CK3 ####[place] [address] [place] [address] eGFR (black) mL/min/{1.73_m2} Normal >60 [facility] Comment on above: Performed By: #### H LESA, BMP3, CK3 ####[place] [address] [place] [address] eGFR (non-black) mL/min/{1.73_m2} Normal >60 [facility] Comment on above: Result Comment: Sour ce- MDRD equation with creatinine calibration to IDMS(NKDEP) eGFR not recommended for drug dose adjustment Performed By: #### H EMOCristobal, BMP3, CK3 ####[facility] [place] [address] Potassium molar conc 3.7 mmol/L Normal 3.5-5.1 [facility] Comment on above: Performed By: #### H LESA BMP3, CK3 ####[facility] [place] [address] Chloride 103 mmol/L Normal 98-107 [facility] Comment on above: Performed By: #### H EMOCristobal, BMP3, CK3 ####[place] [address] [place] [address] Sodium 137 mmol/L Normal 137-145 [facility] Comment on above: Performed By: #### H EMOCristobal BMP3, CK3 ####[facility] [facility] [place] [address] CKon 02-23-2018 Creatine kinase (CK) 121 U/L Normal 30-170 [facility] Comment on above: Performed By: #### Mehul EMOG BMP3, CK3 ####[address] [place] [address] Hemogramon 02-23-2018 Erythrocyte distribution width Auto Ratio (RBC) 13.5 % Normal 11.5-14.5 [facility] Comment on above: Performed By: #### H LESA BMP3, CK3 ####[address] [place] [address] Erythrocytes (RBC) 5.17 10*6/uL Normal 4.40-5.90 [facility] Comment on above: Performed By: #### Mehul MCFADDEN BMP3, CK3 ####[address] [facility] [place] [place] [address] Hematocrit (HCT) 42.8 % Normal 40.0-52.0 [facility] Comment on above: Performed By: #### Mehul MCFADDEN BMP3, CK3 ####[address] [place] [address] Hemoglobin mass conc (Bld) 14.8 g/dL Normal 13.0-18.0 [facility] Comment on above: Performed By: #### Mehul MCFADDEN BMP3, CK3 ####[address] [facility] [place] [address] MCH 28.7 pg Normal 26.0-34.0 [facility] Comment on above: Performed By: #### Mehul EMOG, BMP3, CK3 ####[address] [place] [address] MCHC mass conc (RBC) 34.6 % Normal 32.0-36.0 [facility] Comment on above: Performed By: #### Mehul EMOG, BMP3, CK3 ####[address] [facility] [place] [address] MCV 82.8 fL Normal 80.0-98.0 [facility] Comment on above: Performed By: #### H EMOG, BMP3, CK3 ####[facility] [place] [address] Platelet mean volume (PMV) 10.3 fL Normal 7.4-10.4 [facility] Comment on above: Performed By: #### H EMOG, BMP3, CK3 ####[facility] [place] [address] Platelets 140 10*3/uL Normal 140-440 [facility] Comment on above: Performed By: #### H EMOG, BMP3, CK3 ####[facility] [employer] [address] [place] [address] WBC (Leukocytes) 5.0 10*3/uL Normal 3.6-10.7 [facility] Comment on above: Performed By: #### H EMOG, BMP3, CK3 ####[facility] [employer] [place] [address] [place] [address] Urinalysis,Macroon 8 Bilirubin (direct) Negative Normal Negative [facility] Comment on above: Performed By: #### U AMAC ####[facility] [employer] [place] [address] [place] [address] Ketone,Urine Negative Normal Negative [facility] Comment on above: Performed By: #### U AMAC ####[address] [place] [address] Occult Blood,Ur Negative Normal Negative [facility] Comment on above: Performed By: #### U AMAC ####[place] [address] [place] [address] Specific [place],Urine 1.005 Normal 1.005-1.030 [facility] Comment on above: Performed By: #### U AMAC ####[place] [address] [place] [address] Total Protein,Urine Negative Normal Negative [facility] Comment on above: Performed By: #### U AMAC ####[address] [place] [address] Urine, appearance CLEAR Normal Clear [facility] Comment on above: Performed By: #### U AMAC ####[facility] [employer] [address] [place] [address] Urine, color YELLOW Normal Lt. Yellow [facility] Comment on above: Performed By: #### U AMAC ####[facility] [employer] [address] [place] [address] Urine, glucose presence Negative Normal Negative [facility] Comment on above: Performed By: #### U AMAC ####[facility] [employer] [address] [place] [address] Urine, nitrite presence Negative Normal Negative [facility] Comment on above: Performed By: #### U AMAC ####[employer] [address] [place] [address] Urine, pH 6.5 Normal 5.0-8.0 [facility] Comment on above: Performed By: #### U AMAC ####[facility] [employer] [address] [place] [address] Urine, urobilinogen 0.2 mg/dL Normal 0-1 [facility] Comment on above: Performed By: #### U AMAC ####[employer] [address] [place] [address] WBC (Leukocytes) Negative Normal Negative [facility] Comment on above: Performed By: #### U AMAC ####[employer] [address] [place] [address] Vital Signs Date Time Vital Sign Value Performing Clinician Facility 08-07-2024 11:51-0500 Diastolic blood pressure 95 mm[Hg] Howard Martin [facility] 08-07-2024 11:51-0500 Systolic blood pressure 148 mm[Hg] Howard Martin [facility] 08-07-2024 11:46-0500 Body temperature 98.06 [degF] Howard Martin [facility] 08-07-2024 11:46-0500 Diastolic blood pressure 107 mm[Hg] Howard Martin [facility] 08-07-2024 11:46-0500 Heart rate 84 /min Howard Martin [facility] 08-07-2024 11:46-0500 Respiratory rate 16 /min Howard Martin [facility] 08-07-2024 11:46-0500 SaO2% (BldA) [Mass fraction] 98 % Howard Martin [facility] 08-07-2024 11:46-0500 Systolic blood pressure 166 mm[Hg] Howard Martin [facility] 08-02-2024 23:34-0500 Diastolic blood pressure 94 mm[Hg] Kaylinn Dokken [facility] 08-02-2024 23:34-0500 Heart rate 83 /min Kaylinn Dokken [facility] 08-02-2024 23:34-0500 Mean blood pressure 111 mm[Hg] Kaylinn Dokken [facility] 08-02-2024 23:34-0500 Respiratory rate 20 /min Kaylinn Dokken [facility] 08-02-2024 23:34-0500 SaO2% (BldA) [Mass fraction] 99 % Kaylinn Dokken [facility] 08-02-2024 23:34-0500 Systolic blood pressure 145 mm[Hg] Kaylinn Dokken [facility] 08-02-2024 20:39-0500 Body temperature 98.06 [degF] Kaylinn Dokken [facility] 08-02-2024 20:39-0500 Diastolic blood pressure 79 mm[Hg] Kaylinn Dokken [facility] 08-02-2024 20:39-0500 Heart rate 88 /min Chenn Dokken [facility] 08-02-2024 20:39-0500 Respiratory rate 20 /min Yusrainn Dokken [facility] 08-02-2024 20:39-0500 SaO2% (BldA) [Mass fraction] 94 % Yusrainn Dokken [facility] 08-02-2024 20:39-0500 Systolic blood pressure 146 mm[Hg] Chenn Dokken [facility] 2024 11:07-0400 Blood Pressure Location Alfred Sarmini [facility] 2024 11:07-0400 Diastolic blood pressure 88 mm[Hg] Alfred Sarmini [facility] 2024 11:07-0400 Heart rate 88 /min Alfred Sarmini [facility] 2024 11:07-0400 Respiratory rate 16 /min Alfred Sarmini [facility] 2024 11:07-0400 Systolic blood pressure 148 mm[Hg] Alfred Sarmini [facility] 07-17-2024 20:36-0400 Body temperature 98.24 [degF] Neil Alexander [facility] 07-17-2024 20:36-0400 Diastolic blood pressure 96 mm[Hg] Neil Alexander [facility] 07-17-2024 20:36-0400 Heart rate 85 /min Neil Alexander [facility] 07-17-2024 20:36-0400 Respiratory rate 20 /min Neil Benjamin [facility] 07-17-2024 20:36-0400 SaO2% (BldA) [Mass fraction] 96 % Neil Alexander [facility] 07-17-2024 20:36-0400 Systolic blood pressure 148 mm[Hg] Neil Benjamin [facility] 07-16-2024 21:18-0400 Body temperature 97.88 [degF] Neil Alexander [facility] 07-16-2024 21:18-0400 Diastolic blood pressure 80 mm[Hg] Neil Alexander [facility] 07-16-2024 21:18-0400 Heart rate 73 /min Neil Alexander [facility] 07-16-2024 21:18-0400 Respiratory rate 16 /min Neil Alexander [facility] 07-16-2024 21:18-0400 SaO2% (BldA) [Mass fraction] 98 % Neil Alexander [facility] 07-16-2024 21:18-0400 Systolic blood pressure 138 mm[Hg] Neil Alexander [facility] 07-16-2024 16:02-0400 Diastolic blood pressure 82 mm[Hg] DO Gustavo Tupa Work Phone: [facility] 07-16-2024 16:02-0400 Heart rate 60 /min DO Gustavo Tupa Work Phone: [facility] 07-16-2024 16:02-0400 Respiratory rate 18 /min DO Gustavo Tupa Work Phone: [facility] 07-16-2024 16:02-0400 SaO2% (BldA) [Mass fraction] 98 % DO Gustavo Tupa Work Phone: [facility] 07-16-2024 16:02-0400 Systolic blood pressure 118 mm[Hg] DO Gustavo Tupa Work Phone: [facility] 07-16-2024 12:12-0400 Body temperature 98.5 [degF] DO Gustavo Tupa Work Phone: [facility] 07-16-2024 12:03-0400 Body height 167.64 cm DO Gustavo Tupa Work Phone: [facility] 07-16-2024 12:03-0400 Body weight 96.3 kg DO Gustavo Tupa Work Phone: [facility] 07-15-2024 15:09-0400 Diastolic blood pressure 109 mm[Hg] DO Gustavo Tupa Work Phone: [facility] 07-15-2024 15:09-0400 Heart rate 89 /min DO Gustavo Tupa Work Phone: [facility] 07-15-2024 15:09-0400 Systolic blood pressure 152 mm[Hg] DO Gustavo Tupa Work Phone: [facility] 07-15-2024 13:25-0400 Body height 167.64 cm DO Gustavo Tupa Work Phone: [facility] 07-15-2024 13:25-0400 Body temperature 98.5 [degF] DO Gustavo Tupa Work Phone: [facility] 07-15-2024 13:25-0400 Body weight 94 kg DO Gustavo Tupa Work Phone: [facility] 07-15-2024 13:25-0400 Respiratory rate 18 /min DO Gustavo Tupa Work Phone: [facility] 07-15-2024 13:25-0400 SaO2% (BldA) [Mass fraction] 98 % DO Gustavo Tupa Work Phone: [facility] 07-15-2024 10:07-0400 Body mass index (BMI) [Ratio] 33.4 kg/m2 DO Gustavo Tupa Work Phone: [facility] 07-15-2024 10:07-0400 Diastolic blood pressure 97 mm[Hg] DO Gustavo Tupa Work Phone: [facility] 07-15-2024 10:07-0400 Systolic blood pressure 131 mm[Hg] DO Gustavo Tupa Work Phone: [facility] 07-15-2024 10:01-0400 Body height 167.64 cm DO Gustavo Tupa Work Phone: [facility] 07-15-2024 10:01-0400 Body weight 93.92 kg DO Gustavo Tupa Work Phone: [facility] 07-14-2024 15:16-0400 Diastolic blood pressure 80 mm[Hg] DO Gustavo Tupa Work Phone: [facility] 07-14-2024 15:16-0400 Heart rate 64 /min DO Gustavo Tupa Work Phone: [facility] 07-14-2024 15:16-0400 Respiratory rate 16 /min DO Gustavo Tupa Work Phone: [facility] 07-14-2024 15:16-0400 SaO2% (BldA) [Mass fraction] 100 % DO Gustavo Tupa Work Phone: [facility] 07-14-2024 15:16-0400 Systolic blood pressure 135 mm[Hg] DO Gustavo Tupa Work Phone: [facility] 07-14-2024 12:29-0400 Body height 167.64 cm DO Gustavo Tupa Work Phone: [facility] 07-14-2024 12:29-0400 Body weight 95.25 kg DO Gustavo Mcclelland Work Phone: [facility] 07-11-2024 14:00-0400 Diastolic blood pressure 89 mm[Hg] [facility] 07-11-2024 14:00-0400 Heart rate 63 /min [facility] 07-11-2024 14:00-0400 Mean blood pressure 109 mm[Hg] [facility] [facility] 07-11-2024 14:00-0400 SaO2% (BldA) [Mass fraction] 99 % [facility] 07-11-2024 14:00-0400 Systolic blood pressure 150 mm[Hg] [facility] 07-11-2024 13:00-0400 Diastolic blood pressure 67 mm[Hg] [facility] 07-11-2024 13:00-0400 Mean blood pressure 85 mm[Hg] [facility] 07-11-2024 13:00-0400 Respiratory rate 14 /min [facility] 07-11-2024 13:00-0400 Systolic blood pressure 121 mm[Hg] [facility] 07-11-2024 12:01-0400 Diastolic blood pressure 79 mm[Hg] [facility] 07-11-2024 12:01-0400 Heart rate 61 /min [facility] 07-11-2024 12:01-0400 Mean blood pressure 89 mm[Hg] [facility] 07-11-2024 12:01-0400 Respiratory rate 16 /min [facility] 07-11-2024 12:01-0400 SaO2% (BldA) [Mass fraction] 97 % [facility] 07-11-2024 12:01-0400 Systolic blood pressure 110 mm[Hg] [facility] 07-11-2024 10:45-0400 Body temperature 98.06 [degF] [facility] 07-11-2024 10:45-0400 Heart rate 86 /min [facility] 07-11-2024 10:45-0400 Respiratory rate 18 /min [facility] 07-09-2024 20:29-0400 Diastolic blood pressure 97 mm[Hg] [facility] 07-09-2024 20:29-0400 Heart rate 71 /min [facility] 07-09-2024 20:29-0400 Mean blood pressure 111 mm[Hg] [facility] 07-09-2024 20:29-0400 Respiratory rate 21 /min [facility] 07-09-2024 20:29-0400 SaO2% (BldA) [Mass fraction] 97 % [facility] 07-09-2024 20:29-0400 Systolic blood pressure 139 mm[Hg] [facility] 07-09-2024 20:01-0400 Diastolic blood pressure 107 mm[Hg] [facility] 07-09-2024 20:01-0400 Heart rate 71 /min [facility] 07-09-2024 20:01-0400 Mean blood pressure 119 mm[Hg] [facility] 07-09-2024 20:01-0400 Respiratory rate 16 /min [facility] 07-09-2024 20:01-0400 SaO2% (BldA) [Mass fraction] 96 % [facility] 07-09-2024 20:01-0400 Systolic blood pressure 143 mm[Hg] [facility] 07-09-2024 19:51-0400 Diastolic blood pressure 110 mm[Hg] [facility] 07-09-2024 19:51-0400 Systolic blood pressure 145 mm[Hg] [facility] 07-09-2024 19:02-0400 Heart rate 85 /min [facility] 07-09-2024 18:24-0400 Body temperature 98.24 [degF] [facility] 07-09-2024 18:24-0400 Heart rate 91 /min [facility] 07-09-2024 18:24-0400 Respiratory rate 18 /min [facility] 07-09-2024 18:24-0400 SaO2% (BldA) [Mass fraction] 98 % [facility] 06-07-2023 14:13-0400 Diastolic blood pressure 82 mm[Hg] Text Entry [facility] 06-07-2023 14:13-0400 Heart rate 59 /min Text Entry Free [facility] 06-07-2023 14:13-0400 Systolic blood pressure 107 mm[Hg] Text Entry [facility] 06-07-2023 11:51-0400 SaO2% (BldA) [Mass fraction] 100 % Text Entry [facility] 06-07-2023 10:01-0400 Body height 167.6 cm Text Entry Free [facility] 06-07-2023 10:01-0400 Body temperature 96.98 [degF] Text Entry Free [facility] 06-07-2023 10:01-0400 Body weight 95 kg Text Entry Free [facility] 06-07-2023 10:01-0400 Respiratory rate 16 /min Text Entry Free [facility] 06-06-2023 22:55-0400 Diastolic blood pressure 86 mm[Hg] Text Entry Free [facility] 06-06-2023 22:55-0400 Heart rate 68 /min Text Entry Free [facility] 06-06-2023 22:55-0400 Respiratory rate 20 /min Text Entry Free [facility] 06-06-2023 22:55-0400 SaO2% (BldA) [Mass fraction] 97 % Text Entry [facility] 06-06-2023 22:55-0400 Systolic blood pressure 133 mm[Hg] Text Entry [facility] 06-06-2023 20:28-0400 Body height 167.6 cm Text Entry Free [facility] 06-06-2023 20:28-0400 Body temperature 97.34 [degF] Text Entry Free [facility] 06-06-2023 20:28-0400 Body weight 100 kg Text Entry Free [facility] 06-04-2023 18:52-0400 Diastolic blood pressure 80 mm[Hg] Text Entry Free [facility] 06-04-2023 18:52-0400 Heart rate 72 /min Text Entry Free [facility] 06-04-2023 18:52-0400 Respiratory rate 16 /min Text Entry Free [facility] 06-04-2023 18:52-0400 SaO2% (BldA) [Mass fraction] 97 % Text Entry Free [facility] 06-04-2023 18:52-0400 Systolic blood pressure 121 mm[Hg] Text Entry Free [facility] 06-04-2023 17:07-0400 Body height 167.6 cm Text Entry Free [facility] 06-04-2023 17:07-0400 Body temperature 97.7 [degF] Text Entry Free [facility] 06-04-2023 17:07-0400 Body weight 91 kg Text Entry Free [facility] 06-01-2023 12:01-0400 Body height 170 cm MD Jaelyn Jean MD [facility] 06-01-2023 12:01-0400 Body weight 88.6 kg MD Jaelyn Jean MD [facility] 05-30-2023 13:48-0400 Body temperature 98.71 [degF] Riley Crawford MD Work Phone: [facility] 05-30-2023 13:48-0400 Diastolic blood pressure 69 mm[Hg] Riley Crawford MD Work Phone: [employer] 05-30-2023 13:48-0400 Heart rate 71 /min Riley Crawford MD Work Phone: [employer] 05-30-2023 13:48-0400 Respiratory rate 18 /min Riley Crawford MD Work Phone: [employer] 05-30-2023 13:48-0400 SaO2% (BldA) [Mass fraction] 96 % Riley Crawford MD Work Phone: [employer] 05-30-2023 13:48-0400 Systolic blood pressure 118 mm[Hg] Riley Crawford MD Work Phone: [employer] 05-11-2023 20:04-0400 Body height 167.6 cm MD Anne Inman MD [facility] 05-11-2023 20:04-0400 Body mass index (BMI) [Ratio] 31.5 kg/m2 MD Anne Inman MD [employer] 05-11-2023 20:04-0400 Body weight 88.6 kg MD Anne Inman MD [facility] 05-05-2023 22:04-0400 Diastolic blood pressure 77 mm[Hg] [facility] 05-05-2023 22:04-0400 Heart rate 70 /min [facility] 05-05-2023 22:04-0400 Respiratory rate 20 /min [facility] 05-05-2023 22:04-0400 SaO2% (BldA) [Mass fraction] 96 % [facility] 05-05-2023 22:04-0400 Systolic blood pressure 127 mm[Hg] [facility] 05-05-2023 18:15-0400 Body height 167.64 cm [facility] 05-05-2023 18:15-0400 Body temperature 98.2 [degF] [facility] 05-05-2023 18:15-0400 Body weight 90.71 kg [facility] 05-05-2023 11:36-0400 Diastolic blood pressure 81 mm[Hg] [facility] 05-05-2023 11:36-0400 Heart rate 91 /min [facility] 05-05-2023 11:36-0400 Respiratory rate 18 /min [facility] 05-05-2023 11:36-0400 SaO2% (BldA) [Mass fraction] 100 % [facility] 05-05-2023 11:36-0400 Systolic blood pressure 122 mm[Hg] [facility] 05-05-2023 07:53-0400 Body height 167.64 cm [facility] 05-05-2023 07:53-0400 Body temperature 97.8 [degF] [facility] 05-05-2023 07:53-0400 Body weight 99.79 kg [facility] 02-02-2023 20:55-0400 Diastolic blood pressure 94 mm[Hg] Kenn Rodriguez MD Work Phone: [facility] 02-02-2023 20:55-0400 Systolic blood pressure 138 mm[Hg] Kenn Rodriguez MD Work Phone: [facility] 02-02-2023 19:11-0400 Body temperature 98.29 [degF] Kenn Rodriguez MD Work Phone: [facility] 02-02-2023 19:11-0400 Heart rate 56 /min Kenn Rodriguez MD Work Phone: [facility] 02-02-2023 19:11-0400 Respiratory rate 19 /min Kenn Rodriguez MD Work Phone: [facility] 02-02-2023 19:11-0400 SaO2% (BldA) [Mass fraction] 98 % Kenn Rodriguez MD Work Phone: [facility] 02-02-2023 18:34-0400 Body height 167.6 cm Kenn Rodriguez MD Work Phone: [facility] [employer] 02-02-2023 18:34-0400 Body mass index (BMI) [Ratio] 32.28 kg/m2 Kenn Rodriguez MD Work Phone: [facility] [employer] 02-02-2023 18:34-0400 Body weight 90.72 kg Kenn Rodriguez MD Work Phone: [facility] [employer] 02-01-2023 12:33-0400 Diastolic blood pressure 90 mm[Hg] Lila Vera DO Work Phone: [employer] 02-01-2023 12:33-0400 Heart rate 72 /min Lila Vera DO Work Phone: [employer] 02-01-2023 12:33-0400 Respiratory rate 18 /min Lila Vera DO Work Phone: [employer] 02-01-2023 12:33-0400 SaO2% (BldA) [Mass fraction] 99 % Lila Vera DO Work Phone: [employer] 02-01-2023 12:33-0400 Systolic blood pressure 144 mm[Hg] Lila Vera DO Work Phone: [employer] 02-01-2023 07:48-0400 Body mass index (BMI) [Ratio] 32.28 kg/m2 Lila Vera DO Work Phone: [employer] 02-01-2023 07:48-0400 Body temperature 98.1 [degF] Lila Vera DO Work Phone: [facility] [employer] 02-01-2023 07:48-0400 Body weight 90.72 kg Lila Vera DO Work Phone: [employer] 02-01-2023 05:15-0400 Diastolic blood pressure 88 mm[Hg] Susu Collins MD Work Phone: [facility] [employer] [facility] 02-01-2023 05:15-0400 Heart rate 94 /min Susu Collins MD Work Phone: [facility] [employer] 02-01-2023 05:15-0400 SaO2% (BldA) [Mass fraction] 98 % Susu Collins MD Work Phone: [facility] 02-01-2023 05:15-0400 Systolic blood pressure 138 mm[Hg] Susu Collins MD Work Phone: [facility] 02-01-2023 02:01-0400 Respiratory rate 18 /min Susu Collins MD Work Phone: [facility] [employer] [facility] 02-01-2023 00:30-0400 Body height 167.6 cm Susu Collins MD Work Phone: [facility] 02-01-2023 00:30-0400 Body mass index (BMI) [Ratio] 32.28 kg/m2 Susu Collins MD Work Phone: [facility] 02-01-2023 00:30-0400 Body weight 90.72 kg Susu Collins MD Work Phone: [facility] 02-01-2023 00:25-0400 Body temperature 97.81 [degF] Susu Collins MD Work Phone: [facility] [employer] [facility] 01-29-2023 08:58-0400 Diastolic blood pressure 102 mm[Hg] Text Entry Free [facility] 01-29-2023 08:58-0400 Heart rate 64 /min Text Entry Free [facility] 01-29-2023 08:58-0400 Respiratory rate 16 /min Text Entry Free [facility] 01-29-2023 08:58-0400 SaO2% (BldA) [Mass fraction] 98 % Text Entry Free [facility] 01-29-2023 08:58-0400 Systolic blood pressure 142 mm[Hg] Text Entry Free [facility] 01-29-2023 02:21-0400 Body temperature 97.7 [degF] Text Entry Free [facility] 01-22-2023 18:42-0400 Body height 167.64 cm DO Kay Jimt DO [facility] 01-22-2023 18:42-0400 Body weight 88.6 kg DO Kay Jimt DO [facility] 09-05-2021 17:27-0500 Diastolic blood pressure 79 mm[Hg] Viral Amado Other Phone: [facility] 09-05-2021 17:27-0500 Systolic blood pressure 125 mm[Hg] Viral Amado Other Phone: [facility] 09-05-2021 17:26-0500 Respiratory rate 22 /min Viral Amado Other Phone: [facility] 09-05-2021 16:00-0500 Heart rate 65 /min Viral Amado Other Phone: [facility] 09-05-2021 16:00-0500 SaO2% (BldA) [Mass fraction] 94 % Viral Amado Other Phone: [facility] 09-05-2021 09:48-0500 Body height 170.1 cm Viral Amado Other Phone: [facility] 09-05-2021 09:48-0500 Body temperature 98.24 [degF] Viral Amado Other Phone: [facility] 09-05-2021 09:48-0500 Body weight 88 kg Viral Amado Other Phone: [facility] 08-28-2021 10:24-0500 Diastolic blood pressure 80 mm[Hg] Viral Amado Work Phone: [facility]Czgonubgrw[facility]Fjgqo [facility] Work Phone: 08-28-2021 10:24-0500 Heart rate 80 /min Viral Amado Work Phone: FM-Nkjowtoplq-Xnedq d Work Phone: 08-28-2021 10:24-0500 Systolic blood pressure 126 mm[Hg] Viral Amado Work Phone: [facility]-Yjflufxfts-Ljhlc d Work Phone: 08-23-2021 16:23-0500 Body height 167.64 cm Viral Amado Work Phone: GN-Kvnjkbonda-Lvywd d Work Phone: 08-23-2021 16:23-0500 Body mass index (BMI) [Ratio] 32.93 kg/m2 Viral Amado Work Phone: GW-Zlzixfaaib-Vvphs d Work Phone: 08-23-2021 16:23-0500 Body surface area Derived from formula 2.02 m2 Viral Amado Work Phone: DJ-Wlehaejxoz-Dfvnu d Work Phone: 08-23-2021 16:23-0500 Body weight 92.53 kg Viral Amado Work Phone: JI-Pnkebarrxi-Eryfh d Work Phone: 08-23-2021 16:23-0500 Diastolic blood pressure 80 mm[Hg] Viral Amado Work Phone: BC-Dqbzwgscrg-Kpjov d Work Phone: 08-23-2021 16:23-0500 Heart rate 86 /min Viral Amado Work Phone: TC-Lewjjxxhti-Gyxxn d Work Phone: 08-23-2021 16:23-0500 Respiratory rate 14 /min Viral Amado Work Phone: RP-Ejwciapamy-Oxtwn d Work Phone: 08-23-2021 16:23-0500 SaO2% (BldA) [Mass fraction] 93 % Viral Amado Work Phone: UZ-Rcsmesdwqw-Pmpxi d Work Phone: 08-23-2021 16:23-0500 Systolic blood pressure 122 mm[Hg] Viral Amado Work Phone: NX-Gwyanmswrh-Abbyd d Work Phone: 08-22-2021 17:21-0500 Body weight 88.6 kg MD Lily Smith MD [facility] 08-20-2021 15:14-0500 Diastolic blood pressure 71 mm[Hg] Viral Amado Other Phone: [facility] 08-20-2021 15:14-0500 Heart rate 67 /min Viral Amado Other Phone: [facility] 08-20-2021 15:14-0500 Respiratory rate 16 /min Viral Amado Other Phone: [facility] 08-20-2021 15:14-0500 SaO2% (BldA) [Mass fraction] 97 % Viral Amado Other Phone: [facility] 08-20-2021 15:14-0500 Systolic blood pressure 102 mm[Hg] Viral Amado Other Phone: [facility] 08-20-2021 08:28-0500 Body height 167.6 cm Viral Amado Other Phone: [facility] 08-20-2021 08:28-0500 Body temperature 98.6 [degF] Viral Amado Other Phone: [facility] 08-20-2021 08:28-0500 Body weight 90 kg Viral Amado Other Phone: [facility] 08-19-2021 15:09-0500 Diastolic blood pressure 72 mm[Hg] Viral Amado Other Phone: [facility] 08-19-2021 15:09-0500 Heart rate 101 /min Viral Amado Other Phone: [facility] 08-19-2021 15:09-0500 Respiratory rate 18 /min Viral Amado Other Phone: [facility] 08-19-2021 15:09-0500 SaO2% (BldA) [Mass fraction] 95 % Viral Amado Other Phone: [facility] 08-19-2021 15:09-0500 Systolic blood pressure 119 mm[Hg] Viral Amado Other Phone: [facility] 08-19-2021 14:06-0500 Body height 167.6 cm Viral Amado Other Phone: [facility] 08-19-2021 14:06-0500 Body temperature 97.88 [degF] Viral Amado Other Phone: [facility] 08-19-2021 14:06-0500 Body weight 90 kg Viral Amado Other Phone: [facility] 08-16-2021 14:30-0500 Body mass index (BMI) [Ratio] 33.1 kg/m2 MD Lily Smith MD [facility] 08-16-2021 14:30-0500 Body weight 93.1 kg MD Lily Smith MD [facility] 08-13-2021 02:11-0500 Diastolic blood pressure 89 mm[Hg] Viral Amado Other Phone: [facility] 08-13-2021 02:11-0500 Heart rate 71 /min Viral Amado Other Phone: [facility] 08-13-2021 02:11-0500 Respiratory rate 20 /min Viral Amado Other Phone: [facility] 08-13-2021 02:11-0500 SaO2% (BldA) [Mass fraction] 96 % Viral Amado Other Phone: [facility] 08-13-2021 02:11-0500 Systolic blood pressure 126 mm[Hg] Viral Amado Other Phone: [facility] 07-28-2021 09:10-0400 Body mass index (BMI) [Ratio] 33.8 kg/m2 DO Christopher Longinow DO [facility] 07-28-2021 09:10-0400 Body weight 95 kg DO Christopher Longinow DO [facility] 07-26-2021 16:16-0400 Body weight 90 kg MD Lily Smith MD [facility] 07-14-2021 12:20-0400 Body weight 84.4 kg MD Callum Bronson MD [facility] 07-13-2021 15:40-0400 Body weight 91.4 kg MD Shell Linares MD [facility] 07-11-2021 18:39-0400 Body mass index (BMI) [Ratio] 32.5 kg/m2 DO Kay Lyly DO [facility] 07-11-2021 18:39-0400 Body weight 91.4 kg DO Kay Lyly DO [facility] 07-10-2021 14:42-0400 Diastolic blood pressure 84 mm[Hg] Viral Amado Work Phone: [facility] Work Phone: 07-10-2021 14:42-0400 Systolic blood pressure 124 mm[Hg] Viral Amado Work Phone: [facility] Work Phone: 07-10-2021 14:41-0400 Body temperature 97.5 [degF] Viral Amado Work Phone: [facility] Work Phone: 07-10-2021 14:41-0400 Diastolic blood pressure 81 mm[Hg] Viral Amado Work Phone: [facility] Work Phone: 07-10-2021 14:41-0400 Heart rate 66 /min Viral Amado Work Phone: [facility] Work Phone: 07-10-2021 14:41-0400 Respiratory rate 18 /min Viral Amado Work Phone: [facility] Work Phone: 07-10-2021 14:41-0400 SaO2% (BldA) [Mass fraction] 97 % Viral Amado Work Phone: [facility] Work Phone: 07-10-2021 14:41-0400 Systolic blood pressure 128 mm[Hg] Viral Amado Work Phone: [facility] Work Phone: 07-10-2021 14:41-0400 8 1 Viral Amado Work Phone: [facility] Work Phone: Comment on above: [employer] 07-10-2021 12:01-0400 Body weight 91.4 kg MD Kristen Ambrocio MD [facility] 07-05-2021 10:28-0400 Diastolic blood pressure 86 mm[Hg] Viral Amado Other Phone: [facility] 07-05-2021 10:28-0400 Systolic blood pressure 137 mm[Hg] Viral Amado Other Phone: [facility] 07-05-2021 07:16-0400 Body temperature 98.06 [degF] Viral Amado Other Phone: [facility] 07-05-2021 07:16-0400 Heart rate 57 /min Viral Amado Other Phone: [facility] 07-05-2021 07:16-0400 Respiratory rate 16 /min Viral Amado Other Phone: [facility] 07-05-2021 07:16-0400 SaO2% (BldA) [Mass fraction] 95 % Viral Amado Other Phone: [facility] 07-05-2021 03:53-0400 Body height 165.1 cm Viral Aneudy Other Phone: [facility] 07-05-2021 03:53-0400 Body weight 86.4 kg Viral Amado Other Phone: [facility] 06-28-2021 09:34-0400 Diastolic blood pressure 77 mm[Hg] Viral Amado Work Phone: [facility] Work Phone: 06-28-2021 09:34-0400 Systolic blood pressure 113 mm[Hg] Viral Amado Work Phone: [facility] Work Phone: 06-28-2021 09:32-0400 Body height 167.64 cm Viral Amado Work Phone: [facility] Work Phone: 06-28-2021 09:32-0400 Body mass index (BMI) [Ratio] 31.47 kg/m2 Viral Amado Work Phone: [facility] Work Phone: 06-28-2021 09:32-0400 Body surface area Derived from formula 1.98 m2 Viral Amado Work Phone: [facility] Work Phone: 06-28-2021 09:32-0400 Body weight 88.45 kg Viral Amado Work Phone: [facility] Work Phone: 06-28-2021 09:32-0400 Diastolic blood pressure 68 mm[Hg] Viral Amado Work Phone: [facility] Work Phone: 06-28-2021 09:32-0400 Heart rate 91 /min Viral Amado Work Phone: [facility] Work Phone: 06-28-2021 09:32-0400 Respiratory rate 14 /min Viral Amado Work Phone: [facility] Work Phone: 06-28-2021 09:32-0400 SaO2% (BldA) [Mass fraction] 96 % Viral Amado Work Phone: [facility] Work Phone: 06-28-2021 09:32-0400 Systolic blood pressure 110 mm[Hg] Viral Amado Work Phone: [facility] Work Phone: 06-28-2021 09:32-0400 0 1 Viral Amado Work Phone: [facility] Work Phone: Comment on above: [employer] 06-27-2021 01:07-0400 Diastolic blood pressure 83 mm[Hg] Viral Amado Other Phone: [facility] 06-27-2021 01:07-0400 Heart rate 73 /min Viral Aneudy Other Phone: [facility] 06-27-2021 01:07-0400 Respiratory rate 18 /min Viral Amado Other Phone: [facility] 06-27-2021 01:07-0400 SaO2% (BldA) [Mass fraction] 100 % Viral Amado Other Phone: [facility] 06-27-2021 01:07-0400 Systolic blood pressure 129 mm[Hg] Viral Amado Other Phone: [facility] 06-26-2021 16:46-0400 Body height 175.2 cm Viral Amado Other Phone: [facility] 06-26-2021 16:46-0400 Body temperature 97.88 [degF] Viral Amado Other Phone: [facility] 06-26-2021 16:46-0400 Body weight 76 kg Viral Amado Other Phone: [facility] 06-23-2021 08:06-0400 Body mass index (BMI) [Ratio] 32.77 kg/m2 Viral Amado Work Phone: [facility] Work Phone: 06-23-2021 08:06-0400 Body surface area Derived from formula 2.01 m2 Viral Amado Work Phone: [facility] Work Phone: 06-23-2021 08:06-0400 Body weight 92.08 kg Viral Amado Work Phone: [facility] Work Phone: 06-23-2021 08:06-0400 Diastolic blood pressure 76 mm[Hg] Viral Amado Work Phone: [facility] Work Phone: 06-23-2021 08:06-0400 Heart rate 76 /min Viral Amado Work Phone: [facility] Work Phone: 06-23-2021 08:06-0400 Systolic blood pressure 136 mm[Hg] Viral Amado Work Phone: [facility] Work Phone: 06-20-2021 14:03-0400 Diastolic blood pressure 50 mm[Hg] Viral Amado Work Phone: [facility] Work Phone: 06-20-2021 14:03-0400 Systolic blood pressure 80 mm[Hg] Viral Brennon Amado Work Phone: [facility] Work Phone: 06-20-2021 14:02-0400 Body temperature 97.1 [degF] Viral Brennon Amado Work Phone: [facility] Work Phone: 06-20-2021 14:02-0400 Diastolic blood pressure 70 mm[Hg] Viral Brennon Amado Work Phone: [facility] Work Phone: 06-20-2021 14:02-0400 Heart rate 84 /min Viral Amado Work Phone: [facility] Work Phone: 06-20-2021 14:02-0400 Respiratory rate 14 /min Viral S Aneudy Work Phone: [facility] Work Phone: 06-20-2021 14:02-0400 SaO2% (BldA) [Mass fraction] 98 % Viral Amado Work Phone: [facility] Work Phone: 06-20-2021 14:02-0400 Systolic blood pressure 107 mm[Hg] Viral Amado Work Phone: [facility] Work Phone: 06-20-2021 14:02-0400 0 1 Viral Amado Work Phone: [facility] Work Phone: Comment on above: [employer] 06-20-2021 07:46-0400 Body mass index (BMI) [Ratio] 31.8 kg/m2 MD Lily Smiht MD [facility] 06-20-2021 07:46-0400 Body weight 89.6 kg MD Lily Smith MD [facility] 06-19-2021 16:16-0400 Body weight 98.3 kg MD Callum Bronson MD [facility] 06-18-2021 03:54-0400 Body mass index (BMI) [Ratio] 29.1 kg/m2 MD Josh Darnell MD [facility] 06-18-2021 03:54-0400 Body weight 87 kg MD Josh Darnell MD [facility] 06-14-2021 13:30-0400 Diastolic blood pressure 78 mm[Hg] Viral Amado Other Phone: [facility] 06-14-2021 13:30-0400 Systolic blood pressure 145 mm[Hg] Viral Amado Other Phone: [facility] 06-14-2021 12:57-0400 Heart rate 70 /min Viral Amado Other Phone: [facility] 06-14-2021 12:57-0400 Respiratory rate 18 /min Viral Amado Other Phone: [facility] 06-14-2021 12:57-0400 SaO2% (BldA) [Mass fraction] 97 % Viral Amado Other Phone: [facility] 06-14-2021 09:34-0400 Body height 167.6 cm Viral Amado Other Phone: [facility] 06-14-2021 09:34-0400 Body temperature 97.52 [degF] Viral Amado Other Phone: [facility] 06-14-2021 09:34-0400 Body weight 86 kg Viral Amado Other Phone: [facility] 06-12-2021 10:05-0400 Body mass index (BMI) [Ratio] 30.7 kg/m2 MD Callum Bronson MD [facility] 06-12-2021 10:05-0400 Body weight 86.4 kg MD Callum Bronson MD [facility] 06-07-2021 16:55-0400 Diastolic blood pressure 81 mm[Hg] Viral Amado Other Phone: [facility] 06-07-2021 16:55-0400 Heart rate 70 /min Viral Amado Other Phone: [facility] 06-07-2021 16:55-0400 Respiratory rate 16 /min Viral Amado Other Phone: [facility] 06-07-2021 16:55-0400 SaO2% (BldA) [Mass fraction] 98 % Viral Amado Other Phone: [facility] 06-07-2021 16:55-0400 Systolic blood pressure 116 mm[Hg] Viral Amado Other Phone: [facility] 06-07-2021 10:47-0400 Body height 167.6 cm Viral Amado Other Phone: [facility] 06-07-2021 10:47-0400 Body temperature 98.06 [degF] Viral Amado Other Phone: [facility] 06-07-2021 10:47-0400 Body weight 84 kg Viral Amado Other Phone: [facility] 06-03-2021 02:55-0400 Diastolic blood pressure 84 mm[Hg] Viral Amado Other Phone: [facility] 06-03-2021 02:55-0400 Heart rate 74 /min Viral Amado Other Phone: [facility] 06-03-2021 02:55-0400 Respiratory rate 16 /min Viral Amado Other Phone: [facility] 06-03-2021 02:55-0400 SaO2% (BldA) [Mass fraction] 98 % Viral Amado Other Phone: [facility] 06-03-2021 02:55-0400 Systolic blood pressure 130 mm[Hg] Viral Amado Other Phone: [facility] 05-31-2021 15:41-0400 Diastolic blood pressure 86 mm[Hg] Viral Amado Other Phone: [facility] 05-31-2021 15:41-0400 Heart rate 69 /min Viral Amado Other Phone: [facility] 05-31-2021 15:41-0400 Respiratory rate 16 /min Viral Amado Other Phone: [facility] 05-31-2021 15:41-0400 SaO2% (BldA) [Mass fraction] 98 % Viral Amado Other Phone: [facility] 05-31-2021 15:41-0400 Systolic blood pressure 129 mm[Hg] Viral Amado Other Phone: [facility] 05-31-2021 08:58-0400 Body height 167.6 cm Viral Amado Other Phone: [facility] 05-31-2021 08:58-0400 Body temperature 96.98 [degF] Viral Amado Other Phone: [facility] 05-31-2021 08:58-0400 Body weight 84 kg Viral Amado Other Phone: [facility] 05-31-2021 04:29-0400 Body height 167.6 cm Viral Amado Other Phone: [facility] 05-31-2021 04:29-0400 Body temperature 96.8 [degF] Viral Amado Other Phone: [facility] 05-31-2021 04:29-0400 Body weight 85 kg Viral Amado Other Phone: [facility] 05-31-2021 04:29-0400 Diastolic blood pressure 105 mm[Hg] Viral Amado Other Phone: [facility] 05-31-2021 04:29-0400 Heart rate 68 /min Viral Amado Other Phone: [facility] 05-31-2021 04:29-0400 Respiratory rate 16 /min Viral Amado Other Phone: [facility] 05-31-2021 04:29-0400 SaO2% (BldA) [Mass fraction] 95 % Viral Amado Other Phone: [facility] 05-31-2021 04:29-0400 Systolic blood pressure 159 mm[Hg] Viral Amado Other Phone: [facility] 05-27-2021 11:20-0400 Diastolic blood pressure 88 mm[Hg] Viral Amado Other Phone: [facility] 05-27-2021 11:20-0400 Heart rate 66 /min Viral Amado Other Phone: [facility] 05-27-2021 11:20-0400 SaO2% (BldA) [Mass fraction] 100 % Viral Amado Other Phone: [facility] 05-27-2021 11:20-0400 Systolic blood pressure 134 mm[Hg] Viral Amado Other Phone: [facility] 05-27-2021 08:12-0400 Body height 167.6 cm Viral Amado Other Phone: [facility] 05-27-2021 08:12-0400 Body temperature 97.88 [degF] Viral Amado Other Phone: [facility] 05-27-2021 08:12-0400 Body weight 86 kg Viral Amado Other Phone: [facility] 05-27-2021 08:12-0400 Respiratory rate 20 /min Viral Amado Other Phone: [facility] 05-25-2021 12:50-0400 Body height 177.8 cm Viral Aneudy Other Phone: [facility] 05-25-2021 12:50-0400 Body temperature 97.34 [degF] Viral Amado Other Phone: [facility] 05-25-2021 12:50-0400 Body weight 85 kg Viral Aneudy Other Phone: [facility] 05-25-2021 12:50-0400 Diastolic blood pressure 90 mm[Hg] Viral Amado Other Phone: [facility] 05-25-2021 12:50-0400 Heart rate 67 /min Viral Amado Other Phone: [facility] 05-25-2021 12:50-0400 Respiratory rate 18 /min Viral Aneudy Other Phone: [facility] 05-25-2021 12:50-0400 SaO2% (BldA) [Mass fraction] 99 % Viral Aneudy Other Phone: [facility] 05-25-2021 12:50-0400 Systolic blood pressure 136 mm[Hg] Viral Amado Other Phone: [facility] 05-16-2021 14:25-0400 Body mass index (BMI) [Ratio] 30.6 kg/m2 Other PCP [facility] 05-16-2021 14:25-0400 Body weight 86.2 kg Other PCP S 05-11-2021 14:38-0400 Body height 167.64 cm Viral Amado [facility] Work Phone: 05-11-2021 14:38-0400 Body mass index (BMI) [Ratio] 30.67 kg/m2 Viral Amado [facility] Work Phone: 05-11-2021 14:38-0400 Body surface area Derived from formula 1.96 m2 Viral Amado Work [facility] Work Phone: 05-11-2021 14:38-0400 Body weight 86.18 kg Viral Amado [facility] Work Phone: 05-10-2021 14:05-0400 Body weight 89 kg MD Shell Linares MD [facility] 05-06-2021 10:12-0400 Body mass index (BMI) [Ratio] 26.7 kg/m2 MD Thang Caballero MD [facility] 05-06-2021 10:12-0400 Body weight 87 kg MD Thang Caballero MD [facility] 04-25-2021 11:11-0400 Diastolic blood pressure 85 mm[Hg] [...] rate 70 /min Viral Amado [facility] [place] [facility] Work Phone: 04-25-2021 11:07-0400 Respiratory rate 18 /min Viral Amado Work [facility] Work Phone: 04-25-2021 11:07-0400 Systolic blood pressure 127 mm[Hg] Viral Willett Aneudy Work Phone: [facility] [facility] Work Phone: 04-21-2021 14:14-0400 Diastolic blood pressure 78 mm[Hg] Viral Amado Other Phone: [facility] 04-21-2021 14:14-0400 Heart rate 66 /min Viral Amado Other Phone: [facility] 04-21-2021 14:14-0400 Respiratory rate 17 /min Viral Amado Other Phone: [facility] 04-21-2021 14:14-0400 SaO2% (BldA) [Mass fraction] 100 % Viral Amado Other Phone: [facility] 04-21-2021 14:14-0400 Systolic blood pressure 122 mm[Hg] Viral Amado Other Phone: [facility] 04-21-2021 12:51-0400 Body height 167.6 cm Viral Amado Other Phone: [facility] 04-21-2021 12:51-0400 Body temperature 97.34 [degF] Viral Amado Other Phone: [facility] 04-21-2021 12:51-0400 Body weight 84.5 kg Viral Amado Other Phone: [facility] 04-18-2021 18:00-0400 Body height 167.6 cm Viral Amado Other Phone: [facility] 04-18-2021 18:00-0400 Body temperature 99.14 [degF] Viral Amado Other Phone: [facility] 04-18-2021 18:00-0400 Body weight 84.8 kg Viral Amado Other Phone: [facility] 04-18-2021 18:00-0400 Diastolic blood pressure 81 mm[Hg] Viral Amado Other Phone: [facility] 04-18-2021 18:00-0400 Heart rate 94 /min Viral Amado Other Phone: [facility] 04-18-2021 18:00-0400 Respiratory rate 18 /min Viral Amado Other Phone: [facility] 04-18-2021 18:00-0400 SaO2% (BldA) [Mass fraction] 95 % Viral Amado Other Phone: [facility] 04-18-2021 18:00-0400 Systolic blood pressure 110 mm[Hg] Viral Amado Other Phone: [facility] 04-15-2021 16:00-0400 Diastolic blood pressure 98 mm[Hg] Viral Amado Other Phone: [facility] 04-15-2021 16:00-0400 Heart rate 88 /min Viral Amado Other Phone: [facility] 04-15-2021 16:00-0400 Respiratory rate 18 /min Viral Amado Other Phone: [facility] 04-15-2021 16:00-0400 SaO2% (BldA) [Mass fraction] 100 % Viral Amado Other Phone: [facility] 04-15-2021 16:00-0400 Systolic blood pressure 141 mm[Hg] Viral Amado Other Phone: [facility] 04-15-2021 14:14-0400 Body height 172.7 cm Viral Amado Other Phone: [facility] 04-15-2021 14:14-0400 Body temperature 98.06 [degF] Viral Amado Other Phone: [facility] 04-15-2021 14:14-0400 Body weight 85 kg Viral Amado Other Phone: [facility] 04-13-2021 23:30-0400 Diastolic blood pressure 98 mm[Hg] Viral Amado Other Phone: [facility] 04-13-2021 23:30-0400 Heart rate 73 /min Viral Amado Other Phone: [facility] 04-13-2021 23:30-0400 Respiratory rate 14 /min Viral Amado Other Phone: [facility] 04-13-2021 23:30-0400 SaO2% (BldA) [Mass fraction] 96 % Viral Amado Other Phone: [facility] 04-13-2021 23:30-0400 Systolic blood pressure 143 mm[Hg] Viral Amado Other Phone: [facility] 04-13-2021 17:30-0400 Body height 167.6 cm Viral Amado Other Phone: [facility] 04-13-2021 17:30-0400 Body temperature 97.16 [degF] Viral Amado Other Phone: [facility] 04-13-2021 17:30-0400 Body weight 86.3 kg Viral Amado Other Phone: [facility] 04-13-2021 01:32-0400 Diastolic blood pressure 98 mm[Hg] Viral Amado Other Phone: [facility] 04-13-2021 01:32-0400 Heart rate 55 /min Viral Amado Other Phone: [facility] 04-13-2021 01:32-0400 Respiratory rate 16 /min Viral Amado Other Phone: [facility] 04-13-2021 01:32-0400 SaO2% (BldA) [Mass fraction] 100 % Viral Amado Other Phone: [facility] 04-13-2021 01:32-0400 Systolic blood pressure 130 mm[Hg] Viral Amado Other Phone: [facility] 04-12-2021 20:24-0400 Body height 167.6 cm Viral Amado Other Phone: [facility] 04-12-2021 20:24-0400 Body temperature 97.34 [degF] Viral Amado Other Phone: [facility] 04-12-2021 20:24-0400 Body weight 85 kg Viral Amado Other Phone: [facility] 04-12-2021 11:26-0400 Body height 167.64 cm Viral Amado Work Phone: [facility] Work Phone: 04-12-2021 11:26-0400 Body mass index (BMI) [Ratio] 30.51 kg/m2 Viral Amado Work Phone: [facility] Work Phone: 04-12-2021 11:26-0400 Body surface area Derived from formula 1.95 m2 Viral Amado Work Phone: [facility] [facility] Work Phone: 04-12-2021 11:26-0400 Body weight [...] 113 mm[Hg] Viral Amado Work Phone: [facility] Work Phone: 04-12-2021 11:26-0400 Systolic blood pressure 119 mm[Hg] Viral Amado Work Phone: [facility] Work Phone: 04-11-2021 19:16-0400 Body mass index (BMI) [Ratio] 30.2 kg/m2 DO Christopher Longinow DO [facility] 04-11-2021 19:16-0400 Body weight 85 kg DO Christopher Longinow DO [facility] 04-10-2021 14:33-0400 Body mass index (BMI) [Ratio] 21.6 kg/m2 MD Lily Smith MD [facility] 04-10-2021 14:33-0400 Body weight 85 kg MD Lily Smith MD [facility] 04-08-2021 11:04-0400 Body temperature 95.9 [degF] Viral Amado Other Phone: [facility] 04-08-2021 11:04-0400 Diastolic blood pressure 68 mm[Hg] Viral Amado Other Phone: [facility] 04-08-2021 11:04-0400 Heart rate 64 /min Viral Amado Other Phone: [facility] 04-08-2021 11:04-0400 Respiratory rate 16 /min Viral Amado Other Phone: [facility] 04-08-2021 11:04-0400 SaO2% (BldA) [Mass fraction] 100 % Viral Amado Other Phone: [facility] 04-08-2021 11:04-0400 Systolic blood pressure 128 mm[Hg] Viral Amado Other Phone: [facility] 04-04-2021 17:23-0400 Diastolic blood pressure 98 mm[Hg] Viral Amado Other Phone: [facility] 04-04-2021 17:23-0400 Heart rate 72 /min Viral Amado Other Phone: [facility] 04-04-2021 17:23-0400 Respiratory rate 18 /min Viral Amado Other Phone: [facility] 04-04-2021 17:23-0400 SaO2% (BldA) [Mass fraction] 97 % Viral Amado Other Phone: [facility] 04-04-2021 17:23-0400 Systolic blood pressure 125 mm[Hg] Viral Amado Other Phone: [facility] 04-04-2021 11:34-0400 Body height 167.6 cm Viral Amado Other Phone: [facility] 04-04-2021 11:34-0400 Body temperature 99.14 [degF] Viral Amado Other Phone: [facility] 04-04-2021 11:34-0400 Body weight 85 kg Viral Amado Other Phone: [facility] 03-30-2021 14:30-0400 Diastolic blood pressure 90 mm[Hg] [facility] Phone: 03-30-2021 14:30-0400 Heart rate 52 /min [facility] Phone: 03-30-2021 14:30-0400 Respiratory rate 18 /min [facility] Phone: 03-30-2021 14:30-0400 SaO2% (BldA) [Mass fraction] 100 % [facility] Phone: 03-30-2021 14:30-0400 Systolic blood pressure 123 mm[Hg] [facility] Phone: 03-30-2021 13:00-0400 Body mass index (BMI) [Ratio] 30.02 kg/m2 [facility] Phone: 03-30-2021 13:00-0400 Body temperature 97.9 [degF] [facility] Phone: 03-30-2021 13:00-0400 Body weight 84.37 kg [facility] Phone: 03-30-2021 12:05-0400 Diastolic blood pressure 70 mm[Hg] [place] [facility] Phone: 03-30-2021 12:05-0400 Heart rate 74 /min [place] [facility] Phone: 03-30-2021 12:05-0400 Respiratory rate 18 /min [place] [facility] Phone: 03-30-2021 12:05-0400 SaO2% (BldA) [Mass fraction] 100 % [place] [facility] Phone: 03-30-2021 12:05-0400 Systolic blood pressure 103 mm[Hg] [place] [facility] Phone: 03-29-2021 21:17-0400 Diastolic blood pressure 81 mm[Hg] [facility] Phone: 03-29-2021 21:17-0400 Heart rate 59 /min [facility] Phone: 03-29-2021 21:17-0400 Respiratory rate 18 /min [facility] Phone: 03-29-2021 21:17-0400 SaO2% (BldA) [Mass fraction] 100 % [facility] Phone: 03-29-2021 21:17-0400 Systolic blood pressure 118 mm[Hg] [facility] Phone: 03-29-2021 18:42-0400 Body height 167.6 cm [facility] Phone: 03-29-2021 18:42-0400 Body mass index (BMI) [Ratio] 30.02 kg/m2 [facility] Phone: 03-29-2021 18:42-0400 Body temperature 98.4 [degF] [facility] Phone: 03-29-2021 18:42-0400 Body weight 84.37 kg [facility] Phone: 03-24-2021 02:31-0400 Diastolic blood pressure 75 mm[Hg] Viral Amado Other Phone: [facility] 03-24-2021 02:31-0400 Heart rate 75 /min Viral Amado Other Phone: [facility] 03-24-2021 02:31-0400 Respiratory rate 18 /min Viral Amado Other Phone: [facility] 03-24-2021 02:31-0400 SaO2% (BldA) [Mass fraction] 98 % Viral Amado Other Phone: [facility] 03-24-2021 02:31-0400 Systolic blood pressure 138 mm[Hg] Viral Amado Other Phone: [facility] 03-23-2021 15:49-0400 Body height 167.64 cm Viarl Amado Work Phone: [facility]Ajcpujdnxo[facility] [address] Work Phone: 03-23-2021 15:49-0400 Body mass index (BMI) [Ratio] 30.34 kg/m2 Viral Amado Work Phone: RV-Jzjqmlgflc-Dpmrx [facility] [address] Work Phone: 03-23-2021 15:49-0400 Body surface area Derived from formula 1.95 m2 Viral Amado Work Phone: VU[facility]Fnoegmzjkh[facility]Knffq [facility] [address] Work Phone: 03-23-2021 15:49-0400 Body weight 85.28 kg Viral Amado Work Phone: EL-Nyfzhzpjpo-Mugpg [facility] [address] Work Phone: 03-23-2021 15:49-0400 Diastolic blood pressure 92 mm[Hg] Viral Amado Work Phone: FN-Ksyawkciod-Wveye [facility] [address] Work Phone: 03-23-2021 15:49-0400 Heart rate 90 /min Viral Amado Work Phone: RC-Xwpgabxbsa-Qxbjx [facility] [address] Work Phone: 03-23-2021 15:49-0400 SaO2% (BldA) [Mass fraction] 98 % Viral Amado Work Phone: JH-Vwpcotzgra-Azwxt [facility] [address] Work Phone: 03-23-2021 15:49-0400 Systolic blood pressure 140 mm[Hg] Viral Amado Work Phone: LM-Nxirysfeog-Qtmcc [facility] [address] Work Phone: 03-22-2021 04:58-0400 Body mass index (BMI) [Ratio] 32.2 kg/m2 MD Jax Casiano MD [facility] 03-22-2021 04:58-0400 Body weight 90.5 kg MD Jax Casiano MD [facility] 03-18-2021 16:28-0400 Body mass index (BMI) [Ratio] 30.03 kg/m2 MD Jean-Paul Ascencio MD [facility] 03-18-2021 16:28-0400 Body weight 84.4 kg MD Jean-Paul Ascencio MD [facility] 03-15-2021 14:42-0400 Body mass index (BMI) [Ratio] 29.86 kg/m2 Viral Amado Work Phone: [facility] [employer] Work Phone: 03-15-2021 14:42-0400 Body surface area Derived from formula 1.93 m2 Viral Amado Work Phone: [facility] [employer] Work Phone: 03-15-2021 14:42-0400 Body weight 83.92 kg Viral Amado Work Phone: [facility] [employer] Work Phone: 03-15-2021 14:42-0400 Diastolic blood pressure 74 mm[Hg] Viral Amado Work Phone: [facility] [employer] Work Phone: 03-15-2021 14:42-0400 Heart rate 89 /min Viral Amado Work Phone: [facility] [employer] Work Phone: 03-15-2021 14:42-0400 Systolic blood pressure 121 mm[Hg] Viral Amado Work Phone: [facility] [employer] Work Phone: 03-15-2021 02:09-0400 Diastolic blood pressure 90 mm[Hg] No Pcp Required [facility] 03-15-2021 02:09-0400 Heart rate 67 /min No Pcp Required [facility] 03-15-2021 02:09-0400 Respiratory rate 18 /min No Pcp Required [facility] 03-15-2021 02:09-0400 SaO2% (BldA) [Mass fraction] 98 % No Pcp Required [facility] 03-15-2021 02:09-0400 Systolic blood pressure 132 mm[Hg] No Pcp Required [facility] 03-02-2021 16:00-0400 Diastolic blood pressure 68 mm[Hg] Viral Amado Other Phone: [facility] 03-02-2021 16:00-0400 Heart rate 74 /min Viral Amado Other Phone: [facility] 03-02-2021 16:00-0400 Respiratory rate 14 /min Viral Amado Other Phone: [facility] 03-02-2021 16:00-0400 SaO2% (BldA) [Mass fraction] 100 % Viral Amado Other Phone: [facility] 03-02-2021 16:00-0400 Systolic blood pressure 102 mm[Hg] Viral Amado Other Phone: [facility] 03-02-2021 09:29-0400 Body height 172.7 cm Viral Amado Other Phone: [facility] 03-02-2021 09:29-0400 Body temperature 98.06 [degF] Viral Amado Other Phone: [facility] 03-02-2021 09:29-0400 Body weight 84.5 kg Viral Amado Other Phone: [facility] 02-28-2021 12:56-0400 Body height 172.7 cm Pcp Unknown [facility] 02-28-2021 12:56-0400 Body temperature 97.16 [degF] Pcp Unknown [facility] 02-28-2021 12:56-0400 Body weight 79 kg Pcp Unknown [facility] 02-28-2021 12:56-0400 Diastolic blood pressure 82 mm[Hg] Pcp Unknown [facility] 02-28-2021 12:56-0400 Heart rate 64 /min Pcp Unknown [facility] 02-28-2021 12:56-0400 Respiratory rate 17 /min Pcp Unknown [facility] 02-28-2021 12:56-0400 SaO2% (BldA) [Mass fraction] 98 % Pcp Unknown [facility] 02-28-2021 12:56-0400 Systolic blood pressure 134 mm[Hg] Pcp Unknown [facility] 02-27-2021 12:45-0400 Diastolic blood pressure 88 mm[Hg] Pcp Unknown [facility] 02-27-2021 12:45-0400 Heart rate 64 /min Pcp Unknown [facility] 02-27-2021 12:45-0400 Respiratory rate 17 /min Pcp Unknown [facility] 02-27-2021 12:45-0400 SaO2% (BldA) [Mass fraction] 100 % Pcp Unknown [facility] 02-27-2021 12:45-0400 Systolic blood pressure 120 mm[Hg] Pcp Unknown [facility] 02-27-2021 09:24-0400 Body height 167.6 cm Pcp Unknown [facility] 02-27-2021 09:24-0400 Body temperature 97.52 [degF] Pcp Unknown [facility] 02-27-2021 09:24-0400 Body weight 84.4 kg Pcp Unknown [facility] 02-27-2021 02:19-0400 Body mass index (BMI) [Ratio] 30.1 kg/m2 MD Josh Darnell MD [facility] 02-27-2021 02:19-0400 Body weight 84.6 kg MD Josh Darnell MD [facility] 02-26-2021 18:33-0400 Body mass index (BMI) [Ratio] 30 kg/m2 MD Roberth Ingram MD [facility] 02-26-2021 18:33-0400 Body weight 84.5 kg MD Roberth Ingram MD [facility] 02-23-2021 15:17-0400 Diastolic blood pressure 61 mm[Hg] Pcp Unknown [facility] 02-23-2021 15:17-0400 Heart rate 60 /min Pcp Unknown [facility] 02-23-2021 15:17-0400 Respiratory rate 16 /min Pcp Unknown [facility] 02-23-2021 15:17-0400 SaO2% (BldA) [Mass fraction] 99 % Pcp Unknown [facility] 02-23-2021 15:17-0400 Systolic blood pressure 108 mm[Hg] Pcp Unknown [facility] 02-23-2021 14:00-0400 Body height 167.6 cm Pcp Unknown [facility] 02-23-2021 14:00-0400 Body temperature 97.34 [degF] Pcp Unknown [facility] 02-23-2021 14:00-0400 Body weight 84.1 kg Pcp Unknown [facility] 02-22-2021 14:10-0400 Body height 167.64 cm Referring Provider Unknown [facility] Work Phone: 02-22-2021 14:10-0400 Body mass index (BMI) [Ratio] 30.02 kg/m2 Referring Provider Unknown [facility] Work Phone: 02-22-2021 14:10-0400 Body surface area Derived from formula 1.94 m2 Referring Provider Unknown [facility] Work Phone: 02-22-2021 14:10-0400 Body temperature 97.3 [degF] Referring Provider Unknown [facility] Work Phone: 02-22-2021 14:10-0400 Body weight 84.37 kg Referring Provider Unknown [facility] Work Phone: 02-22-2021 14:10-0400 Diastolic blood pressure 69 mm[Hg] Referring Provider Unknown [facility] Work Phone: 02-22-2021 14:10-0400 Heart rate 102 /min Referring Provider Unknown [facility] Work Phone: 02-22-2021 14:10-0400 Respiratory rate 18 /min Referring Provider Unknown [facility] Work Phone: 02-22-2021 14:10-0400 SaO2% (BldA) [Mass fraction] 98 % Referring Provider Unknown [facility] Work Phone: 02-22-2021 14:10-0400 Systolic blood pressure 101 mm[Hg] Referring Provider Unknown [facility] Work Phone: 02-22-2021 14:10-0400 3 1 Referring Provider Unknown [facility] Work Phone: Comment on above: [employer] 02-19-2021 12:42-0400 Body mass index (BMI) [Ratio] 35.2 kg/m2 DO Catalinocaitlin Mata DO [facility] 02-19-2021 12:42-0400 Body weight 87.5 kg DO Catalino Joseyki DO [facility] 02-19-2021 02:39-0400 Body mass index (BMI) [Ratio] 31.1 kg/m2 MD Josh Darnell MD [facility] 02-19-2021 02:39-0400 Body weight 87.5 kg MD Josh Darnell MD [facility] 02-18-2021 19:31-0400 Diastolic blood pressure 56 mm[Hg] Pcp Unknown [facility] 02-18-2021 19:31-0400 Heart rate 82 /min Pcp Unknown [facility] 02-18-2021 19:31-0400 Respiratory rate 20 /min Pcp Unknown [facility] 02-18-2021 19:31-0400 SaO2% (BldA) [Mass fraction] 98 % Pcp Unknown [facility] 02-18-2021 19:31-0400 Systolic blood pressure 107 mm[Hg] Pcp Unknown [facility] 02-18-2021 17:48-0400 Body height 167.6 cm Pcp Unknown [facility] 02-18-2021 17:48-0400 Body temperature 98.06 [degF] Pcp Unknown [facility] 02-18-2021 17:48-0400 Body weight 84 kg Pcp Unknown [facility] 02-15-2021 15:07-0400 Diastolic blood pressure 63 mm[Hg] Pcp Unknown [facility] 02-15-2021 15:07-0400 Heart rate 85 /min Pcp Unknown [facility] 02-15-2021 15:07-0400 Respiratory rate 18 /min Pcp Unknown [facility] 02-15-2021 15:07-0400 SaO2% (BldA) [Mass fraction] 99 % Pcp Unknown [facility] 02-15-2021 15:07-0400 Systolic blood pressure 136 mm[Hg] Pcp Unknown [facility] 02-15-2021 13:25-0400 Body height 154.9 cm Pcp Unknown [facility] 02-15-2021 13:25-0400 Body temperature 97.7 [degF] Pcp Unknown [facility] 02-15-2021 13:25-0400 Body weight 81 kg Pcp Unknown [facility] 02-15-2021 09:33-0400 Body mass index (BMI) [Ratio] 29.1 kg/m2 MD Melvi Schroeder MD [facility] 02-15-2021 09:33-0400 Body weight 87 kg MD Melvi Schroeder MD [facility] 02-14-2021 20:06-0400 Body mass index (BMI) [Ratio] 29.1 kg/m2 MD Roberth Ingram MD [facility] 02-14-2021 20:06-0400 Body weight 87.1 kg MD Roberth Ingram MD [facility] 02-14-2021 01:11-0400 Diastolic blood pressure 65 mm[Hg] Pcp Unknown [facility] 02-14-2021 01:11-0400 Heart rate 76 /min Pcp Unknown [facility] 02-14-2021 01:11-0400 Respiratory rate 18 /min Pcp Unknown [facility] 02-14-2021 01:11-0400 SaO2% (BldA) [Mass fraction] 98 % Pcp Unknown [facility] 02-14-2021 01:11-0400 Systolic blood pressure 115 mm[Hg] Pcp Unknown [facility] 02-13-2021 21:53-0400 Body temperature 96.08 [degF] Pcp Unknown [facility] 02-08-2021 17:18-0400 Body temperature 97.7 [degF] No Pcp Required [facility] Other Phone (unformatted): [phone] 02-08-2021 17:18-0400 Diastolic blood pressure 67 mm[Hg] No Pcp Required [facility] Other Phone (unformatted): [phone] 02-08-2021 17:18-0400 Heart rate 81 /min No Pcp Required [facility] Other Phone (unformatted): [phone] 02-08-2021 17:18-0400 Respiratory rate 18 /min No Pcp Required [facility] Other Phone (unformatted): [phone] 02-08-2021 17:18-0400 SaO2% (BldA) [Mass fraction] 98 % No Pcp Required [facility] Other Phone (unformatted): [phone] 02-08-2021 17:18-0400 Systolic blood pressure 149 mm[Hg] No Pcp Required [facility] Other Phone (unformatted): [phone] 02-08-2021 13:48-0400 Body height 165.1 cm No Pcp Required [facility] Other Phone (unformatted): [phone] 02-08-2021 13:48-0400 Body weight 83.6 kg No Pcp Required [facility] Other Phone (unformatted): [phone] 02-05-2021 13:36-0400 Body height 167.6 cm No Pcp Required [facility] 02-05-2021 13:36-0400 Body temperature 96.08 [degF] No Pcp Required [facility] 02-05-2021 13:36-0400 Body weight 86.3 kg No Pcp Required [facility] 02-05-2021 13:36-0400 Diastolic blood pressure 78 mm[Hg] No Pcp Required [facility] 02-05-2021 13:36-0400 Heart rate 98 /min No Pcp Required [facility] 02-05-2021 13:36-0400 Respiratory rate 20 /min No Pcp Required [facility] 02-05-2021 13:36-0400 SaO2% (BldA) [Mass fraction] 100 % No Pcp Required [facility] 02-05-2021 13:36-0400 Systolic blood pressure 135 mm[Hg] No Pcp Required [facility] 02-03-2021 17:29-0400 Body temperature 96.98 [degF] No Pcp Required [facility] 02-03-2021 17:29-0400 Diastolic blood pressure 84 mm[Hg] No Pcp Required [facility] 02-03-2021 17:29-0400 Heart rate 67 /min No Pcp Required [facility] 02-03-2021 17:29-0400 Respiratory rate 18 /min No Pcp Required [facility] 02-03-2021 17:29-0400 SaO2% (BldA) [Mass fraction] 99 % No Pcp Required [facility] 02-03-2021 17:29-0400 Systolic blood pressure 126 mm[Hg] No Pcp Required [facility] 02-03-2021 16:31-0400 Body height 167.6 cm No Pcp Required [facility] 02-03-2021 16:31-0400 Body weight 86.3 kg No Pcp Required [facility] 02-03-2021 08:03-0400 Body temperature 97.88 [degF] No Pcp Required [facility] 02-03-2021 08:03-0400 Diastolic blood pressure 79 mm[Hg] No Pcp Required [facility] 02-03-2021 08:03-0400 Heart rate 56 /min No Pcp Required [facility] 02-03-2021 08:03-0400 Respiratory rate 18 /min No Pcp Required [facility] 02-03-2021 08:03-0400 SaO2% (BldA) [Mass fraction] 94 % No Pcp Required [facility] 02-03-2021 08:03-0400 Systolic blood pressure 115 mm[Hg] No Pcp Required [facility] 02-03-2021 04:56-0400 Body height 167.6 cm No Pcp Required [facility] 02-03-2021 04:56-0400 Body weight 86.2 kg No Pcp Required [facility] 02-03-2021 04:01-0400 Body temperature 97.88 [degF] No Pcp Required [facility] 02-03-2021 04:01-0400 Diastolic blood pressure 81 mm[Hg] No Pcp Required [facility] 02-03-2021 04:01-0400 Heart rate 73 /min No Pcp Required [facility] 02-03-2021 04:01-0400 Respiratory rate 15 /min No Pcp Required [facility] 02-03-2021 04:01-0400 SaO2% (BldA) [Mass fraction] 97 % No Pcp Required [facility] 02-03-2021 04:01-0400 Systolic blood pressure 101 mm[Hg] No Pcp Required [facility] 02-02-2021 03:00-0400 Body temperature 97.52 [degF] No Pcp Required [facility] 02-02-2021 03:00-0400 Diastolic blood pressure 85 mm[Hg] No Pcp Required [facility] 02-02-2021 03:00-0400 Heart rate 77 /min No Pcp Required [facility] 02-02-2021 03:00-0400 Respiratory rate 16 /min No Pcp Required [facility] 02-02-2021 03:00-0400 SaO2% (BldA) [Mass fraction] 98 % No Pcp Required [facility] 02-02-2021 03:00-0400 Systolic blood pressure 118 mm[Hg] No Pcp Required [facility] 01-30-2021 02:43-0400 Diastolic blood pressure 83 mm[Hg] No Pcp Required [facility] 01-30-2021 02:43-0400 Heart rate 59 /min No Pcp Required [facility] 01-30-2021 02:43-0400 Respiratory rate 16 /min No Pcp Required [facility] 01-30-2021 02:43-0400 SaO2% (BldA) [Mass fraction] 99 % No Pcp Required [facility] 01-30-2021 02:43-0400 Systolic blood pressure 139 mm[Hg] No Pcp Required [facility] 01-17-2020 05:38-0400 Pulse Oximetry 98 % [place], [place] 01-17-2020 02:44-0400 BP Diastolic 79 mm[Hg] [place] 01-17-2020 02:44-0400 BP Systolic 122 mm[Hg] [place] 01-17-2020 00:07-0400 BMI (Body Mass Index) 31.47 kg/m2 [place], [place] 01-17-2020 00:07-0400 Body Temperature 98.2 [degF] [place] 01-17-2020 00:07-0400 Body weight 88.45 kg [place], [place] 01-17-2020 00:07-0400 Height 167.6 cm [place] 01-17-2020 00:07-0400 Pulse (Heart Rate) 74 /min [place], [place] 01-17-2020 00:07-0400 Respiratory Rate 18 /min [facility] 01-14-2020 18:05-0400 BP Diastolic 86 mm[Hg] [facility] [place] 01-14-2020 18:05-0400 BP Systolic 135 mm[Hg] [facility] [place] 01-14-2020 18:05-0400 Pulse (Heart Rate) 72 /min [facility], [place] 01-14-2020 18:05-0400 Pulse Oximetry 100 % [facility], [place] 01-14-2020 18:05-0400 Respiratory Rate 20 /min [facility], [place] 01-14-2020 16:36-0400 BMI (Body Mass Index) 31.47 kg/m2 [facility], [place] 01-14-2020 16:36-0400 Body weight 88.45 kg [facility] [place] 01-14-2020 16:36-0400 Height 167.6 cm [facility] 01-14-2020 16:30-0400 Body Temperature 99.1 [degF] [facility], [place] 12-15-2019 07:26-0400 BP Diastolic 83 mm[Hg] [facility] , [place] 12-15-2019 07:26-0400 BP Systolic 121 mm[Hg] [facility] , [place] 12-15-2019 07:26-0400 Pulse (Heart Rate) 83 /min [facility], [place] 12-15-2019 07:26-0400 Pulse Oximetry 100 % [facility] , [place] 12-15-2019 07:26-0400 Respiratory Rate 12 /min [facility], [place] 12-15-2019 05:34-0400 Body Temperature 98.1 [degF] [facility], [place] 12-15-2019 05:33-0400 BMI (Body Mass Index) 32.28 kg/m2 [facility], [place] 12-15-2019 05:33-0400 Body weight 90.72 kg [facility] , [place] 12-15-2019 05:33-0400 Height 167.6 cm [facility] , [place] 12-13-2019 06:33-0400 BP Diastolic 96 mm[Hg] [facility] , [place] 12-13-2019 06:33-0400 BP Systolic 129 mm[Hg] [facility] , [place] 12-13-2019 06:20-0400 Pulse (Heart Rate) 69 /min [facility], [place] 12-13-2019 06:20-0400 Pulse Oximetry 99 % [facility] , [place] 12-13-2019 06:20-0400 Respiratory Rate 17 /min [facility], [place] 12-13-2019 04:52-0400 BMI (Body Mass Index) 32.28 kg/m2 [facility], [place] 12-13-2019 04:52-0400 Body Temperature 98.8 [degF] [facility], [place] 12-13-2019 04:52-0400 Body weight 90.72 kg [facility] , [place] 12-13-2019 04:52-0400 Height 167.6 cm [facility] , [place] 05-18-2019 22:48-0400 BP Diastolic 67 mm[Hg] [facility], [place] 05-18-2019 22:48-0400 BP Systolic 121 mm[Hg] [facility], [place] 05-18-2019 22:48-0400 Pulse (Heart Rate) 83 /min [facility], [place] 05-18-2019 22:48-0400 Pulse Oximetry 100 % [facility], [place] 05-18-2019 22:48-0400 Respiratory Rate 20 /min [facility], [place] 05-18-2019 20:51-0400 BMI (Body Mass Index) 32.28 kg/m2 [facility], [place] 05-18-2019 20:51-0400 Body Temperature 98.8 [degF] [facility], [place] 05-18-2019 20:51-0400 Body weight 90.72 kg [facility] [place] 05-18-2019 20:51-0400 Height 167.6 cm [facility] [place] Encounters Encounter Date Encounter Type Care Provider Facility Start: 08-07-2024 End: 08-07-2024 Emergency department patient visit Howard Martin [facility] Start: 08-02-2024 End: 08-02-2024 Emergency department patient visit Pasquale Nuñez [facility] Start: 07-25-2024 End: 07-25-2024 Emergency department patient visit NO PCP [facility] Start: 2024 End: 2024 ambulatory Alferd Talgiuseppe Mittalmini Facility:[facility] Start: 2024 End: 2024 Patient encounter procedure Alfred Talgiuseppe Mittalmini [facility] Start: 07-19-2024 End: 2024 Emergency department patient visit AGUSTINA Mooney [facility] Start: 07-17-2024 End: 07-18-2024 Emergency department patient visit Neil Alexander [facility] Start: 07-17-2024 ambulatory Jose De Jesusalex claudecourtney Facility :[facility] Start: 07-16-2024 End: 07-16-2024 Emergency department patient visit Neil Alexander [facility] Start: 07-16-2024 End: 07-16-2024 Emergency department patient visit DO Gustavo Mcclelland Work Phone: [facility] Work Phone: Start: 07-15-2024 End: 07-15-2024 Emergency department patient visit DO Gustavo Mcclelland Work Phone: [facility] Work Phone: Start: 07-15-2024 End: 07-15-2024 ambulatory DO Gustavo Mcclelland Work Phone: [facility] Work Phone: Start: 07-15-2024 End: 07-15-2024 Patient encounter procedure DO Gustavo Mcclelland Work Phone: [facility] Work Phone: Start: 07-14-2024 End: 07-14-2024 Emergency department patient visit DO Gustavo Mcclelland Work Phone: [facility] Work Phone: Start: 07-11-2024 End: 07-11-2024 [facility] Start: 07-09-2024 End: 07-09-2024 [facility] Start: 07-04-2024 End: 07-04-2024 Emergency department patient visit [facility] Start: 06-07-2023 End: 06-07-2023 Emergency department patient visit Neil Pete [place] [facility] Bed 01 Start: 06-06-2023 End: 06-06-2023 Emergency department patient visit TYREE MACKENZIE [place] [facility] Bed 06 Start: 06-04-2023 End: 06-04-2023 Emergency department patient visit Stefanie Reyes [facility] Bed 09 Start: 05-30-2023 End: 05-30-2023 Emergency department patient visit UNKNOWN PROVIDER Facility:[facility] Start: 05-30-2023 End: 05-30-2023 Emergency department patient visit Riley Crawford MD Work Phone: [facility] Emergency Department Comment on above: Dizziness (Dizziness upon standing) Start: 05-29-2023 End: 05-29-2023 Emergency department patient visit CARLOS LARIOSXIMENA Facility:[facility] Start: 05-29-2023 Emergency department patient visit VIRAL AMADO Facility:[facility] Start: 05-29-2023 End: 05-29-2023 Emergency department patient visit VIRAL AMADO Facility:[facility] Start: 05-20-2023 Emergency department patient visit VIRAL AMADO Facility:[facility] Start: 05-18-2023 End: 05-18-2023 Emergency department patient visit VIRAL AMADO Facility:[facility] Start: 05-11-2023 End: 05-11-2023 [facility] Start: 05-11-2023 End: 05-11-2023 Emergency department patient visit Kristen Bowman MD Work Phone[facility] Comment on above: Other chest pain; Palpitations; Decreased white blood cell count, unspecified; Thrombocytopenia, unspecified (CMS/HCC); Disorder of kidney and ureter, unspecified; Old myocardial infarction; Homelessness unspecified; Personal history of other diseases of the circulatory system Start: 05-05-2023 End: 05-05-2023 Emergency department patient visit [facility] Work Phone: Start: 05-05-2023 End: 05-05-2023 Emergency department patient visit [facility] Work Phone: Start: 04-21-2023 End: 04-21-2023 Emergency department patient visit LILY MERCADO [facility] Start: 04-20-2023 End: 04-20-2023 Emergency department patient visit ROBINA Kline TO [facility] Start: 04-20-2023 End: 04-20-2023 Emergency department patient visit ROBINA Kline TO [facility] Start: 04-14-2023 End: 04-15-2023 Emergency department patient visit MATTY CLEMENTS [facility] Start: 02-04-2023 End: 02-04-2023 Emergency department patient visit LEONIDES SILVEIRA [facility] Start: 02-03-2023 End: 02-03-2023 Emergency department patient visit LEONIDES SILVEIRA [facility] Start: 02-02-2023 End: 02-02-2023 Emergency department patient visit KENN RODRIGUEZ [facility] Start: 02-02-2023 End: 02-02-2023 Emergency department patient visit Kenn Rodriguez MD Work Phone: [facility] Emergency Department Comment on above: Essential hypertensi on (Primary Dx) Start: 02-01-2023 End: 02-01-2023 Emergency department patient visit LILA SPENCERMARVA [facility] Start: 02-01-2023 End: 02-01-2023 Emergency department [place] Work Phone: [facility] Emergency Department Comment on above: Generalized abdomina l pain (Primary Dx); Ascending aortic aneurysm, unspecified whether ruptured (HCC); Abnormal CT scan Start: 02-01-2023 End: 02-01-2023 Emergency department patient visit SUSU COLLINS [facility] Start: 02-01-2023 End: 02-01-2023 Emergency department patient visit Susu Collins MD Work Phone: [facility] Emergency Department Comment on above: Acute alcoholic into xication without complication (HCC) (Primary Dx); Hypotension, unspecified hypotension type; Dehydration; Hypokalemia Start: 01-28-2023 End: 01-29-2023 Emergency department patient visit Triston Orozco [facility] Start: 01-22-2023 End: 01-23-2023 ambulatory KAY VAZQUEZ Facility:UNKNOWN Start: 01-22-2023 Emergency department patient visit VIRAL AMADO Facility:[facility] Start: 01-14-2023 End: 01-14-2023 Emergency department patient visit NADIRA HAZEL MD Facility:[id number] Start: 01-26-2022 Chart Copy Viral S Aneudy Work Phone: DV-Vfefkvekyz-TIVK [place] [address] [place] Work Phone: Start: 12-22-2021 Refill Thalia Mosley MD Work Phone: Cardiology Start: 12-01-2021 Chart Copy Viral Willett Aneudy Work Phone: XF-Crbhjejegp-PZDI [place] [address] [place] Work Phone: Start: 11-23-2021 Patient encounter procedure Viral Willett Aneudy Work Phone: DW-Gzkpihgqgo-JECL [place] [address] [place] Work Phone: Start: 11-15-2021 Patient encounter procedure Viral Willett Aneudy Work Phone: CK-Jlikdorlsb-BQVG [place] [address] [place] Work Phone: Start: 11-06-2021 Patient encounter procedure Viral Brennon Amado Work Phone: NE-Qodryqsonn-CEVO [place] [address] [place] Work Phone: Start: 10-27-2021 Chart Update Viral S Aneudy Work Phone: EZ-Dgooqkthkh-HVFV [place] [address] [place] Work Phone: Start: 10-02-2021 Rx Change Viral S Aneudy Work Phone: EU-Kkuawjvvbj-Plhete Work Phone: Start: 09-29-2021 AUDIT Viral S Aneudy Work Phone: [address] Work Phone: Start: 09-08-2021 Patient encounter procedure Viral Amado Work Phone: FO-Afvclevcsl-TISK [place] [address] [place] Work Phone: Start: 09-05-2021 End: 09-05-2021 Emergency department patient visit Ceho Simeon [facility] Adult ED Green 19 Start: 08-31-2021 Patient encounter procedure Viral Amado Work Phone: ZQ-Tqpenkepnj-OUPB [address] [address] [place] Work Phone: Start: 08-30-2021 Chart Copy Viral Amado Work Phone: [facility] [address] [place] Work Phone: Start: 08-30-2021 Office outpatient vi sit 10 minutes Viral Amado Work Phone: [facility]-[place] [address] Work Phone: Start: 08-30-2021 VIRFUVSRINATH, Provider : Tay Lott, Status: Pen, Time: 1:00 PM Viral Amado Work Phone: NO-Ethobzlwii-Ecoadl Work Phone: Start: 08-28-2021 Office outpatient vi sit 40 minutes Viral Amado Work Phone: WS-Tgajnqfdqp-Fjhjg HVI Work Phone: Start: 08-28-2021 Patient encounter procedure Virla Amado Work Phone: FL-Cwbhjqqnoe-Dlfwsz Work Phone: Start: 08-23-2021 End: 08-24-2021 Emergency department patient visit Nessa Kelly [facility] Adult ED Waiting Start: 08-23-2021 Patient encounter procedure Lily Carvajal Cardiology Jona Start: 08-20-2021 End: 08-20-2021 Emergency department patient visit Amanda Henderson ED Bed 10 Flex Start: 08-19-2021 End: 08-20-2021 Emergency department patient visit Daniela [facility] ED Waiting Room Start: 08-19-2021 End: 08-19-2021 Emergency department patient visit [facility] ED Waiting Room Start: 08-12-2021 End: 08-13-2021 Emergency department patient visit Triston Orozco [facility] Adult ED Blue 34 Start: 08-11-2021 AUDIT Viral Amado Work Phone[facility] Work Phone: Start: 08-10-2021 Chart Update Viral Willett Aneudy Work Phone: [facility]-[place] [address] Work Phone: Start: 08-10-2021 End: 08-10-2021 Emergency department patient visit Dejah Faust ED Waiting Room Start: 08-02-2021 CASSIUS, Provider : TRAVIS FELTON, Status: Pen, Time: 11:00 AM Viral Amado Work Phone: ZR-Igdfbexzriebgita-Xawz [address] [facility] Work Phone: Start: 08-02-2021 Rx Renewal Viral S Aneudy Work Phone: [address] Work Phone: Start: 08-01-2021 COLON, Provider: Lynette Saldaña, Status: Pen, Time: 3:00 PM Viral Amado Work Phone: VL-Rkhcpeacqeqhnytk-Jwkm ell 6 [facility] Work Phone: Start: 07-31-2021 AUDIT Viral S Aneudy Work Phone: LB-Rmpclsuwiamsykmj-U[place] ell [address] [facility] Work Phone: Start: 07-24-2021 AUDIT Viral S Aneudy Work Phone: KL-Alsrgmhuqh-Jxzpxds [address] [facility] Work Phone: Start: 07-18-2021 Patient encounter procedure Viral S Aneudy Work Phone: RX-Tysyjwqgdg-Gdqwegf [address] [facility] Work Phone: Start: 07-11-2021 NPV, Provider: Bao Mares, Status: Pen, Time: 1:40 PM Viral Amado Work Phone: [facility] Work Phone: Start: 07-10-2021 Office outpatient vi sit 25 minutes Viral Amado Work Phone: [facility] Work Phone: Start: 07-07-2021 AUDIT Viral Amado Work Phone: LX[facility]Awqcooflxp[facility] [address] Work Phone: Start: 07-06-2021 Chart Copy Viral Amado Work Phone: IW-Jkvdxukqmh-Wllykq 1162 Work Phone: Start: 07-05-2021 Patient encounter procedure Viral Amado Other Phone: [facility] Start: 07-05-2021 [facility] Provider: Tay Lott, Status: Pen, Time: 7:00 AM Viral Amado Work Phone: [facility] Work Phone: Start: 07-05-2021 End: 07-05-2021 Evaluation and management of inpatient [place] Dianne [place] Inpt 1 S Rm 126 Bed [...] 06-27-2021 Emergency department patient visit Stacia Wolf [facility] Adult ED Gold 16 Start: 06-23-2021 FUVHOSP, Provider: Viral Amado, Status: Pen, Time: 11:15 AM Viral Amado Work Phone: [facility] Work Phone: Start: 06-23-2021 Office outpatient vi sit 25 minutes Viral Amado Work Phone: [address] [facility] [address] Work Phone: Start: 06-22-2021 AUDIT Viral Amado Work Phone: [facility] [address] [facility] [address] Work Phone: Start: 06-21-2021 AUDIT Viral Amado Work Phone: GX-Xirtswebghuntmsx-Attl ell 6 [facility] Work Phone: Start: 06-21-2021 EGD, Provider: Jaylin Briones, Status: Pen, Time: 8:00 AM Viral Amado Work Phone: [facility] Work Phone: Start: 06-20-2021 Office outpatient ne w 45 minutes Viral Amado Work Phone: [facility] Work Phone: Start: 06-15-2021 AUDIT Viral Amado Work Phone: [address] [facility] [address] Work Phone: Start: 06-14-2021 End: 06-14-2021 Emergency department patient visit [facility] ED Bed 12 Start: 06-13-2021 End: 06-13-2021 Emergency department patient visit [facility] ED Bed 02 Start: 06-12-2021 AUDIT Viral Amado Work Phone: [address] [facility] [address] Work Phone: Start: 06-07-2021 AUDIT Viral Amado Work Phone: [address] [facility] [address] Work Phone: Start: 06-07-2021 End: 06-07-2021 Emergency department patient visit [facility] Bed 07 Start: 06-04-2021 End: 06-05-2021 Emergency department patient visit NO PCP AA NO PCP [facility] Start: 06-02-2021 End: 06-03-2021 Emergency department patient visit Alaina Maciel [facility] ED Bed 15 Start: 06-02-2021 Patient encounter procedure Viral Amado [facility] [place] Start: 05-31-2021 End: 05-31-2021 Emergency department patient visit Klaudia Mosqueda [facility] Start: 05-31-2021 End: 05-31-2021 Emergency department patient visit Viral Amado [facility] Wait Start: 05-27-2021 End: 05-28-2021 Emergency department patient visit NO PCP AA NO PCP [facility] Start: 05-27-2021 End: 05-27-2021 Emergency department patient visit Noel Adler [facility] Consult 01 Start: 05-25-2021 End: 05-25-2021 Emergency department patient visit Viral Amado [facility] 01 Start: 05-24-2021 End: 05-25-2021 Emergency department patient visit Elgin Morales [facility] 13 Start: 05-23-2021 End: 05-23-2021 Emergency department patient visit CHARLY [facility] Start: 05-11-2021 Office outpatient ne w 30 minutes Viral Amado Work Phone: [facility] Medicine[address] Work Phone: Start: 05-11-2021 Patient encounter procedure Elizabet Morales [facility] Start: 05-08-2021 End: 05-09-2021 Emergency department patient visit Daniela [facility] [place] 01 Start: 04-25-2021 Office outpatient vi sit 25 minutes Viral Amado Work Phone: KU-Bbtgmajgwwfolgqg-Wdhn asher 6 [facility] Work Phone: Start: 04-25-2021 Patient encounter procedure Viral Amado Work Phone: ZF-Ewfagmdntazefpnv-Ftkp ell 6 [facility] Work Phone: Start: 04-21-2021 End: 04-21-2021 Emergency department patient visit Daniela [facility] ED Bed 04 Start: 04-20-2021 Evaluation and management of inpatient Viral Amado Other Phone: [facility] Preadmit Start: 04-18-2021 End: 04-18-2021 Emergency department patient visit [facility] 05 Start: 04-15-2021 End: 04-15-2021 Emergency department patient visit Cierra Gimenez [facility] ED Bed 14 Start: 04-13-2021 End: 04-13-2021 Emergency department patient visit Amanda Choudhary [facility] ED Bed HB3 Start: 04-12-2021 End: 04-13-2021 Emergency department patient visit Malou Lomax [facility] ED Bed 01 Start: 04-12-2021 Office outpatient ne w 60 minutes Viral Amado Work Phone: [facility] Work Phone: Start: 04-12-2021 Patient encounter procedure Viral Amado Work Phone: [facility] Work Phone: Start: 04-08-2021 End: 04-08-2021 Emergency department patient visit Charly Omuar [facility] Adult ED Gold 11 Start: 04-04-2021 End: 04-04-2021 Emergency department patient visit Liam So [facility] 05 Start: 04-03-2021 End: 04-04-2021 Emergency department patient visit Irving Wills [facility] ED 09 Start: 03-30-2021 End: 03-30-2021 Emergency department patient visit [facility] Start: 03-30-2021 End: 03-30-2021 Emergency department patient visit [facility] ED Comment on above: Chest pain, unspecif ied type (Primary Dx) Start: 03-30-2021 End: 04-02-2021 ambulatory [facility] Start: 03-30-2021 End: 04-01-2021 Subsequent hospital visit by physician Mercado Fluoro Room 1 [facility] Radiology Comment on above: Dysphagia, unspecifi ed type Start: 03-29-2021 End: 03-30-2021 Emergency department patient visit [facility] Start: 03-29-2021 End: 03-29-2021 Emergency department patient visit [facility] ED Comment on above: Atypical chest pain (Primary Dx) Start: 03-29-2021 End: 03-29-2021 Emergency department patient visit WILL CARTER [facility] Start: 03-23-2021 End: 03-24-2021 Emergency department patient visit Radu Tovar [facility] 03 Start: 03-23-2021 Office outpatient vi sit 25 minutes Viral Amado Work Phone: NZ-Tejblocwsy-Olijhzox [facility] [address] Work Phone: Start: 03-15-2021 Office outpatient ne w 60 minutes Viral Amado Work Phone: [facility] [employer] Work Phone: Start: 03-15-2021 Patient encounter procedure Viral Amado [facility] [place] Start: 03-14-2021 End: 03-15-2021 Emergency department patient visit Bal Renzo [facility] Adult ED Gold 15 Start: 03-14-2021 End: 03-14-2021 Emergency department patient visit No Pcp Required [facility] Adult ED Waiting Start: 03-03-2021 Patient encounter procedure Viral Amado Other Phone: [facility] Preadmit Start: 03-02-2021 End: 03-02-2021 Emergency department patient visit Terry García [place] ED Bed 20 Start: 03-01-2021 Chart Update Referring Prov ider Unknown [facility] Work Phone: Start: 02-28-2021 End: 02-28-2021 Emergency department patient visit aBl Lomax [place] ED Bed 17 Start: 02-27-2021 End: 02-27-2021 Emergency department patient visit Hermes Sexton [place] ED Bed 08 Start: 02-23-2021 End: 02-23-2021 Emergency department patient visit Josh Loli [facility] F Start: 02-22-2021 Office outpatient ne w 45 minutes Referring Provider Unknown [facility] [employer] Work Phone: Start: 02-18-2021 End: 02-18-2021 Emergency department patient visit Dana Sol [place] ED Bed 03 Start: 02-17-2021 AUDIT Referring Prov ider Unknown PJ-Dvfikrdbzi-Aqkkkvtu [facility] [address] Work Phone: Start: 02-16-2021 AUDIT Referring Prov ider Unknown KW-Rfdjazwgwn-Mmbbgedu [facility] [address] Work Phone: Start: 02-15-2021 Patient encounter procedure Lilly Coats [facility] [place] Start: 02-15-2021 Phys/qhp telephone evaluation 21-30 min Referring Provider Unknown [address] [facility] [address] Work Phone: Start: 02-15-2021 TEJAL, Provider : Lilly Coats, Status: Pen, Time: 1:00 PM Referring Provider Unknown VX-Vtdacikgic-Mhatvpwi [facility] [address] Work Phone: Start: 02-15-2021 End: 02-15-2021 Emergency department patient visit Daniela Church [place] ED Bed 11 Start: 02-14-2021 AUDIT Referring Prov ider Unknown KD-Jyhfndkvmn-Flabvrpa [facility] [address] Work Phone: Start: 02-13-2021 End: 02-14-2021 Emergency department patient visit Bal Sahu [facility] B Start: 02-08-2021 End: 02-08-2021 Emergency department patient visit Rashaun Delgadillo [facility] 16 Other Phone (unformatted): [phone] Start: 02-05-2021 End: 02-05-2021 Emergency department patient visit Keith Geni [place] ED Bed 07 Start: 02-03-2021 End: 02-03-2021 Emergency department patient visit Dejah Lepe [place] ED Bed 03 Start: 02-03-2021 End: 02-03-2021 Emergency department patient visit Lily Wolf [facility] ED Bed 04 A Start: 02-02-2021 End: 02-03-2021 Emergency department patient visit Lily Wolf [facility] ED Bed H03 Start: 02-01-2021 End: 02-02-2021 Emergency department patient visit Stacia Bloom [facility] Adult ED Gold 04 Start: 01-29-2021 End: 01-30-2021 Emergency department patient visit Shawn Flores [place] ED Bed 11 Start: 01-16-2020 End: 01-17-2020 Emergency department patient visit Sahil Bo Work Phone: [facility] ED Comment on above: Chest pain, unspecif ied type (Primary Dx) Start: 01-15-2020 End: 01-15-2020 Subsequent hospital visit by physician [facility] Comment on above: Suspected COVID-19 v irus infection Start: 01-14-2020 End: 01-14-2020 Emergency department patient visit Brenna Horowitz Work Phone: [facility] ED Comment on above: Lightheadedness (Екатерина nicole Dx); History of hypertension; Pain, dental Start: 12-15-2019 End: 12-15-2019 Emergency department patient visit Physician [facility] Start: 12-15-2019 End: 12-15-2019 Emergency department patient visit Howard Ayon Work Phone: [facility] Comment on above: Hypertension, unspec ified type (Primary Dx) Start: 12-13-2019 End: 12-13-2019 Emergency department patient visit Physician No [facility] Start: 12-13-2019 End: 12-13-2019 Emergency department patient visit Brandenliz Moraes Work Phone: [facility] Comment on above: Cough (Primary Dx); Primary hypertension Start: 05-18-2019 End: 05-18-2019 Emergency department patient visit Nessa Green Work Phone: [facility] ED Comment on above: Accelerated hyperten jayy (Primary Dx) Start: 02-25-2018 Emergency department patient visit Facility:[facility] Start: 02-23-2018 Emergency department patient visit Gracia Claire [facility] MD Melvi rene MD [facility] Procedures Date Procedure Procedure Detail Performing Clinician Start: 07-16-2024 CT of chest DO Gustavo Mcclelland Work Phone: Start: 07-16-2024 Plain chest X-ray DO Kit Mcclelland Work Phone: Start: 07-14-2024 Computed tomography of abdomen and pelvis with contrast DO Gustavo Mcclelland Work Phone: Start: 06-07-2023 End: 06-07-2023 EKG impression Neil Pete Start: 06-06-2023 End: 06-06-2023 EKG impression TYREE DUBOIS [place] Start: 06-04-2023 End: 06-04-2023 EKG impression Stefanie [...] [Mass/volume] in Platelet poor plasma Thalia Roberto [employer] Work Phone: Start: 05-11-2023 HS TROPONIN T Thalia murdock [employer] Work Phone: Start: 05-11-2023 Radiologic exam ches t 2 views Syngo Conversion Start: 05-11-2023 Bacteria identified in Urine by Culture Thalia Roberto [employer] Work Phone: Start: 05-11-2023 DRUG SCREEN,URINE Thalia Vinicio Roberto [employer] Work Phone: Start: 05-11-2023 Urinalysis complete W Reflex Culture panel - Urine Thalia Roberto [employer] Work Phone: Start: 05-11-2023 Complete blood count with white cell differential, automated Thalia Roberto [employer] Work Phone: Start: 05-11-2023 Comprehensive metabo lic panel Thalia Roberto [employer] Work Phone: Start: 05-11-2023 Ethanol [Mass/volume ] in Serum or Plasma Thalia Roberto [employer] PROF[employer] Work Phone: Start: 05-11-2023 HS TROPONIN T Thalia murdock [employer] Work Phone: Start: 05-11-2023 Lipase [Enzymatic activity/volume] in Serum or Plasma Thalia Roberto [employer] Work Phone: Start: 05-11-2023 Magnesium [Mass/volu me] in Serum or Plasma Thalia Roberto [employer] PROF[employer] Work Phone: Start: 05-11-2023 Natriuretic peptide. B prohormone N-Terminal [Mass/volume] in Serum or Plasma Thalia Roberto [employer] Work Phone: Start: 05-11-2023 TSH WITH REFLEX TO F REE T4 IF ABNORMAL Thalia Roberto [employer] Work Phone: Start: 02-04-2023 Assay of ethanol KIM SILVEIRA Start: 02-04-2023 IP CONSULT TO [employer] LEONIDES SILVEIRA Start: 02-04-2023 Radiologic exam [...] Start: 02-01-2023 INSERT PERIPHERAL IV SH JESSE JSOH Start: 02-01-2023 SALINE LOCK IV SUSU S [...] exam ches t single view Tasneem Story TIP LENGTH CHECKER - [facility] Work Phone: Start: 03-30-2021 Comprehensive metabo lic panel Tasneem Story [employer]EN[employer]ER - [facility] Work Phone: Start: 03-30-2021 Radiologic exam [...] h Start: 09-07-2025 LIPID SCREEN LIPID SCREEN [facility] Start: 09-09-2024 ambulatory Ambulatory Facility:Katelynn Oh Start: 08-19-2024 DIABETES SCREEN DIABETES SCREEN [facility] Start: 05-30-2024 Creatinine measurement Basic Metabol ic Panel [facility] Start: 11-05-2023 DTaP/Tdap/Td vaccine (2 - Td or Tdap) DTaP/Tdap/Td vaccine (2 - Td or Tdap) [facility] Start: 11-05-2023 DTaP/Tdap/Td vaccine (2 - Td) DTaP/Tdap/Td vaccine (2 - Td) [place] Start: 11-05-2023 Tetanus vaccination Tetanus (T d or Tdap) Booster [facility] Start: 11-05-2023 Urine microalbumin profile DTAP,TDAP,TD (2 - Td or Tdap) [facility] Start: 06-23-2023 Influenza vaccination Influenza Vacc ine (#1) [facility] Start: 05-24-2023 Influenza vaccination Influenza Vacc ine (#1) [facility] Start: 05-05-2023 CT of head without contrast CT head/brain wo con [facility] Start: 05-05-2023 CT Unspecified body region WO contrast [facility] Start: 05-05-2023 Diagnostic radiograp hy of abdomen [facility] Start: 05-05-2023 [facility] Start: 04-23-2023 Influenza vaccination Flu vacc ine (Season Ended) [facility] Start: 02-06-2023 Patient encounter procedure GASTRO RAVENNA Start: 01-29-2023 End: 01-30-2024 Ondansetron Injectable 4 mg IntraVenous Push Once STAT ; (ZOFRAN)DOSE = 4 mg IntraVenous Push Once Start: 29-Jan-2023 End: 29-Jan-2024 Ordered: 29-Jan-2023 Venessa Mejias [facility] Start: 09-01-2022 BP CONTROLLED (<130/80) BP CONTROLLE D (<130/80) [facility] Start: 05-24-2022 Influenza vaccination INFLUENZA (Sea son Ended) [facility] Start: 03-30-2022 Creatinine measurement Creatinine mo [facility] Work Phone: Start: 03-30-2022 Potassium monitoring Potassium monit [facility] Work Phone: Start: 03-29-2022 Creatinine measurement Creatinine mo [facility] Work Phone: Start: 03-29-2022 Potassium monitoring Potassium monit [facility] Work Phone: Start: 02-06-2022 ANNUAL PCP TEAM CREMATORY ATTENDANT JULIANA DISEASE VISIT ANNUAL PCP TEAM CHRONIC DISEASE VISIT [facility] Start: 10-09-2021 FUV, Provider: Lily Carvajal, Status: Pen, Time: 1:45 PM FUV, Provider: Lily Carvajal, Status: Pen, Time: 1:45 PM IY-Csxwcvtopn-Fihuqd Work Phone: Start: 10-09-2021 Patient encounter procedure Cardiology Home Start: 10-09-2021 FUV, Provider: Arleth Meredith, Status: Pen, Time: 1:40 PM FUV, Provider: Arleth Meredith, Status: Pen, Time: 1:40 PM ZQ-Dwzwkmrvca-ZZVZ[address] Work Phone: Start: 09-04-2021 NPV, Provider: Nessa Vicente, Status: Pen, Time: 11:00 AM NPV, Provider: Nessa Vicente, Status: Pen, Time: 11:00 AM KJ-Ydhfhayjyx-Mmugtp Work Phone: Start: 08-28-2021 Patient encounter procedure Cardiology Home Start: 08-23-2021 FUV, Provider: Max Delatorre, Status: Pen, Time: 2:50 PM FUV, Provider: Max Delatorre, Status: Pen, Time: 2:50 PM [facility] [facility] Work Phone: Start: 08-23-2021 Patient encounter procedure [facility] [place] Start: 08-23-2021 NPV, Provider: Lily Carvajal, Status: Pen, Time: 10:45 AM NPV, Provider: Lily Carvajal, Status: Pen, Time: 10:45 AM [facility] [facility] Work Phone: Start: 08-23-2021 Patient encounter procedure Cardiology [facility] Start: 08-07-2021 NPV, Provider: Lily Carvajal, Status: Pen, Time: 1:00 PM NPV, Provider: Lily Carvajal, Status: Pen, Time: 1:00 PM MD-Fhlayvkfru-Kzephld [address] Work Phone: Start: 08-04-2021 FUV, Provider: Latha Messina, Status: Pen, Time: 1:20 PM FUV, Provider: Latha Messina, Status: Pen, Time: 1:20 PM WI-Uevvktcelf-Cxzhxev [address] Work Phone: Start: 08-02-2021 ARTBPGUEUN, Provider : TRAVIS FELTON, Status: Pen, Time: 11:00 AM ARTBPGUEUN, Provider: TRAVIS FELTON, Status: Pen, Time: 11:00 AM BC-Iwzeqedkhs-Zcnhssw [address] Work Phone: Start: 08-01-2021 COLON, Provider: Lynette Saldaña, Status: Pen, Time: 3:00 PM COLON, Provider: Lynette Saldaña, Status: Pen, Time: 3:00 PM IE-Bzxyypyeec-Fbldlhr [address] Work Phone: Start: 07-26-2021 NPV, Provider: Max Delatorre, Status: Pen, Time: 3:00 PM NPV, Provider: Max Delatorre, Status: Pen, Time: 3:00 PM XR-Zujljwhucg-Ytiiqbc [address] Work Phone: Start: 07-26-2021 ARTBPGUEUN, Provider : FARHEEN FELTON, Status: Pen, Time: 2:00 PM ARTBPGUEUN, Provider: FARHEEN FELTON, Status: Pen, Time: 2:00 PM NM-Btogeyhvjl-Rvfpinh [address] Work Phone: Start: 07-26-2021 Patient encounter procedure [facility] [place] Start: 2021 Shingles (RZV) Vacci ne (1 of 2) Shingles (RZV) Vaccine (1 of 2) [facility] Start: 2021 Shingles Vaccine (1 of 2) Shingles Vaccine (1 of 2) [facility] Start: 2021 SHINGRIX VACCINE (1 of 2) SHINGRIX VACCINE (1 of 2) [facility] Start: 2021 Zoster Vaccines (1 o f 2) Zoster Vaccines (1 of 2) [facility] Start: 07-18-2021 COLON, Provider: Lynette Saldaña, Status: Pen, Time: 2:20 PM COLON, Provider: Lynette Saldaña, Status: Pen, Time: 2:20 PM ZL-Ntitnrisor-Rpczzwc [address] Work Phone: Start: 07-18-2021 COLON, Provider: Lynette Saldaña, Status: Pen, Time: 2:00 PM COLON, Provider: Lynette Saldaña, Status: Pen, Time: 2:00 PM [facility] [facility] Work Phone: Start: 07-18-2021 Patient encounter procedure [facility] Start: 07-05-2021 End: 07-06-2022 [facility] Start: 07-05-2021 End: 07-06-2022 [facility] Comment on above: Administer with [...] Saline. Start: 07-05-2021 Patient encounter procedure Outpatient [facility] Preadmit [id number] [facility] [id number] Start: 05-Jul-2021 7:00 Intent [facility] P[facility] Start: 07-05-2021 [facility] Provider: Tay Lott, Status: Pen, Time: 7:00 AM SURGC, Provider: Tay Lott, Status: Pen, Time: 7:00 AM [facility] [facility] Work Phone: Start: 07-04-2021 End: 07-05-2022 [facility] Start: 06-28-2021 Patient encounter procedure [facility] [place] [id number] [facility] [id number] Start: 28-Jun-2021 9:40 Latha Messina [facility] [place] Start: 06-26-2021 End: 06-27-2022 [facility] Start: 06-26-2021 End: 06-29-2021 Iohexol (Omnipaque 350-Radiology Contrast) . ; (OMNIPAQUE)DOSE = 114 mL IntraVenous Push OnceCa.5 mL/Kg/DOSE x 76 Kg = 114 mL/Dose (Daily Total is 114 mL)LABS: Blood Urea Nitrogen, Serum,12,14-Jun-2021 09:02:41 Creatinine, Serum,0.99,14-Jun-2021 09:02:41 GFR-Non ,>60,14-Jun-2021 09:02:41 GFR-,>60,14-Jun-2021 09:02:41 Start: 26-Jun-2021 End: 28-Jun-2021 Ordered: 26-Jun-2021 Balta Melo Intent [facility] Start: 06-23-2021 FUVHOSP, Provider: Viral Amado, Status: Pen, Time: 11:15 AM FUVHOSP, Provider: Viral Amado, Status: Pen, Time: 11:[address] [facility] [address] Work Phone: Start: 06-23-2021 Patient encounter procedure [facility] [place] Start: 06-21-2021 EGD, Provider: Jaylin Briones, Status: Pen, Time: 8:00 AM EGD, Provider: Jaylin Briones, Status: Pen, Time: 8:00 AM [facility] Work Phone: Start: 06-21-2021 Patient encounter procedure [facility] Start: 06-02-2021 FUVHOSP, Provider: Viral Amado, Status: Pen, Time: 7:45 AM FUVHOSP, Provider: Viral Amado, Status: Pen, Time: 7:45 AM [facility] Work Phone: Start: 06-02-2021 Patient encounter procedure [facility] [place] Start: 05-27-2021 End: 05-28-2022 Acetaminophen 975 mg Oral Tablet Once ; Tablet (TYLENOL)DOSE = 975 mg Oral Once Start: 27-May-2021 End: 27-May-2022 Ordered: 27-May-2021 Noel Adler Intent [facility] Start: 05-24-2021 Influenza vaccination Flu vaccine (# 1) [employer] Work Phone: Start: 05-17-2021 EGD, Provider: Jaylin Briones, Status: Pen, Time: 11:40 AM EGD, Provider: Jaylin Briones, Status: Pen, Time: 11:40 AM [facility] [facility] Work Phone: Start: 05-17-2021 Patient encounter [...] End: 21-Apr-2022 Ordered: 21-Apr-2021 Daniela Church Intent [facility] Start: 04-20-2021 Evaluation and management of inpatient [facility] Preadmit Start: 04-19-2021 Patient encounter procedure [facility] [place] Start: 04-03-2021 Chest pain Chest pain Didier e: 03-Apr-2021 [facility] Start: 03-30-2021 End: 03-30-2021 Patient encounter procedure 03/30/2021 Appointment Radiology [facility] Radiology Start: 03-24-2021 End: 03-24-2022 Lidocaine 5% Topical Ointment 1 application 3 Times a Day ; DOSE = 1 application(s) Topical OnceApply to Rectum Start: 23-Mar-2021 End: 23-Mar-2022 Ordered: 23-Mar-2021 Cheo Tiwari Intent [facility] Start: 03-23-2021 EPV, Provider: Wally Lawton, Status: Pen, Time: 3:45 PM EPV, Provider: Wally Lawton, Status: Pen, Time: 3:45 PM SU-Mxwogqtjtd-Mjwxqvq e [facility] [address] Work Phone: Start: 03-23-2021 Patient encounter procedure [facility] Cardiology [place] Start: 03-23-2021 VIRFUVSRINATH, Provider : Wally Lawton, Status: Pen, Time: 3:45 PM [facility]: Wally Lawton, Status: Pen, Time: 3:45 PM [facility] Work Phone: Start: 03-15-2021 NPV, Provider: Viral Amado, Status: Pen, Time: 2:30 PM NPV, Provider: Viral Amado, Status: Pen, Time: 2:30 PM [facility] Work [facility]: Start: 03-15-2021 Patient encounter procedure [facility] [place] Start: 03-14-2021 Patient encounter procedure [facility] Start: 03-03-2021 Patient encounter procedure [facility] Start: 02-21-2021 Patient encounter procedure [facility] [place] Start: 02-15-2021 Patient encounter procedure Outpatient [facility] [place] Start: 15-Feb-2021 13:00 Lilly Coats Intent [facility] Start: 02-13-2021 Patient encounter procedure [facility] [place] Start: 12-14-2020 Creatinine monitoring Creatinine mon david [place], [place] Start: 12-14-2020 Potassium monitoring Potassium monit [place]ing [place] Start: 05-24-2020 Influenza vaccination Flu vacc ine (Season Ended) [place] Start: 05-24-2019 Influenza vaccination Flu vaccine (# 1) [place] Start: 2016 COLOGUARD (FIT-DNA) COLOGUARD (FIT-D NA) [facility] Start: 2016 Colonoscopy COLONOSCOPY [facility] Start: 2016 COLORECTAL CANCER SCREENING COLORECTAL CANCER SCREENING [facility] Start: [address] COLONOGRAPHY [facility] Start: 2016 FECAL OCCULT BLOOD FECAL OCCULT BLOO D [facility] Start: 2016 Screening for malign ant neoplasm of colon [facility] Start: 2016 SIGMOIDOSCOPY SIGMOIDOSCOPY [facility] Start: 2011 Diabetes screen Diabetes screen [place], [place] Start: 2011 Lipid panel [facility] Start: 2011 Lipid screen Lipid screen [place], [place] Start: 2006 Diabetes screen Diabetes screen [facility] Start: 1993 DTaP/Tdap/Td Vaccine s (1 - Tdap) DTaP/Tdap/Td Vaccines (1 - Tdap) [facility] Start: 1989 HEPATITIS C SCREENING HEPATITIS C SC KAIDEN [facility] Start: 1989 Hepatitis C screening B ON [facility] Start: 1989 HIV SCREENING HIV SCREENING [facility] Start: 1986 HIV screen HIV screen [place], [place] Start: 1986 HIV screening HIV screen [facility] Start: 1983 Adult depression screening assessment DEPRESSION SCREENING [facility] Start: 1983 COVID-19 Vaccine (1) COVID-19 Vaccin e (1) [facility] Work Phone: Start: 1983 Depression Screen Depression Screen [facility] Start: 1977 Pneumococcal 0-64 ye ars Vaccine (1 of 1 - PPSV23) Pneumococcal 0-64 years Vaccine (1 of 1 - PPSV23) [place] Start: 1977 Pneumococcal vaccination Pneumococcal Vaccine(s) (1 - PCV) [facility] Start: 1977 Pneumococcal Vaccine : Pediatrics (0 to 5 Years) and At-Risk Patients (6 to 64 Years) (1 - PCV) Pneumococcal Vaccine: Pediatrics (0 to 5 Years) and At-Risk Patients (6 to 64 Years) (1 - PCV) [facility] Start: 1976 COVID-19 VACCINE (1) COVID-19 VACCIN E (1) [facility] Start: 1972 MMR Vaccines (1 of 1 - Standard series) MMR Vaccines (1 of 1 - Standard series) [facility] Start: 01-19-1972 COVID-19 Vaccine (#1) COVID-19 Vacci ne (#1) [facility] Start: 1971 Hepatitis B Vaccines (1 of 3 - 3-dose series) Hepatitis B Vaccines (1 of 3 - 3-dose series) [facility] Start: 1971 Hepatitis C screening Hepatitis C sc [facility] Work Phone: Start: 1971 Lipid panel Lipid Panel [facility] Start: 1971 Screening for malign ant neoplasm of colon [facility] Start: 1971 Yearly Adult Physical Yearly Adult P hysical [facility] Bilirubin measuremen t, urine [facility] Color of Urine [facility] End: 01-15-2020 Covid-19 Ambulatory Covid-19 Ambulatory Lab Routine Suspected COVID-19 virus infection 1 Occurrences starting 01/15/2020 until 01/15/[address] [facility] [address] Comment on above: 1 Occurrences starti ng 01/15/2020 until 01/15/2020 Covid-19 Ambulatory Covid-19 Amb ulatory Lab Routine Suspected COVID-19 virus infection 01/15/2020 2:43 PM EDT [place] Detection of hemoglobin [facility] EKG 12 Lead [facility] H CT EKG 12 Lead EKG 12 Lead ECG STAT 02/01/2023 12:11 AM EDT [employer] Work Phone: EKG 12 Lead EKG 12 Lead ECG STAT 02/02/2023 7:46 PM EDT [employer] Work Phone: Glucose [Mass/volume ] in Urine by Test strip [facility] History of tooth extraction History of tooth extraction [facility] End: 03-29-2021 Lipase [Enzymatic activity/volume] in Serum or Plasma Lipase Lab STAT One Time for 1 Occurrences starting 03/29/2021 until 03/29/2021 [employer] Work Phone: Comment on above: One Time for 1 Occur rences starting 03/29/2021 until 03/29/2021 Measurement of keton es in urine using dipstick [facility] Patient Education [facility] Work Phone: Patient referral [facility] Work Phone: Protein measurement, urine [facility] Serum Drug Screen Serum Drug Scr een Lab STAT 02/01/2023 1:00 AM EDT [employer] Work Phone: Urinalysis, specific gravity measurement [facility] Urine dipstick for nitrite [facility] Urine dipstick for specific gravity [facility] Urine pH test [facility] End: 05-30-2023 Urnls dip stick/tablet rgnt auto w/o microscopy URINALYSIS,AUTO-IN OFFICE Lab STAT One time for 1 Occurrences starting 05/30/2023 until 05/30/2023 [employer] Work Phone: Comment on above: One time for 1 Occur rences starting 05/30/2023 until 05/30/2023 Urobilinogen concentration, test strip measurement [facility] End: 03-29-2021 US ABDOMEN LIMITED US ABDOMEN LIMITED Imaging STAT Once for 1 Occurrences starting 03/29/2021 until 03/29/2021 [employer] Work Phone: Comment on above: Once for 1 Occurrenc es starting 03/29/2021 until 03/29/2021 US ABDOMEN LIMITED US ABDOMEN LI MITED Imaging STAT 03/29/2021 8:39 PM EDT [employer] Work Phone: End: 03-29-2021 XR CHEST PORTABLE XR CHEST PORTABLE Imaging STAT Once for 1 Occurrences starting 03/29/2021 until 03/29/2021 [employer] Work Phone: Comment on above: Once for 1 Occurrenc es starting 03/29/2021 until 03/29/2021 XR CHEST PORTABLE XR CHEST RITO BLE Imaging STAT 03/29/2021 7:32 PM EDT [employer] Work Phone: Immunizations Immunization Date Immunization Notes Care Provider [facility] 09-08-2021 tuberculin skin test ; purified protein derivative solution, intradermal Riley Crawford MD Work Phone: [facility] 11-05-2013 tetanus toxoid, redu mohamud diphtheria toxoid, and acellular pertussis vaccine, adsorbed Nessa Green [facility] Payers Date Payer Category Payer Medicaid [id number] 2023 Medicaid [id number] 2022 Unknown 2022 Unknown 0000 2021 Medicaid [place] MED[place] MEDICAID [id number] 2021-Present [phone] [address] [place] [address] Medicaid [id number] 2018 Medicaid MEDICAID - OTHER STATE MEDICAID OUT OF STATE x 2018-Present x [id number] [id number] 2014 Medicaid [id number] 1.13.239.2.7.3.6 [id number] 2014 Medicaid 1 [id number] [id number] 2008 Self-pay 1971 Unknown [id number] 2.16.840.1.308369.3.579.2.182 1971 Unknown [id number] 2.16.840.1.285776.3.579.2.182 1971 Unknown [id number] 2.16.840.1.931510.3.579.2.182 1971 Unknown [id number] 2.16.840.1.864421.3.579.2.598 1971 Unknown [id number] 2.16.840.1.163373.3.579.2.598 1971 Unknown [id number] 2.16.840.1.691391.3.579.2.598 1971 Unknown [id number] 2.16.840.1.674451.3.579.2.159 1971 Unknown [id number] 2.16.840.1.031053.3.579.2.1069 1971 Unknown [id number] 2.16.840.1.494424.3.579.2.204 1971 Unknown [id number] 2.16.840.1.613980.3.579.2.204 1971 Unknown [id number] 2.16.840.1.499701.3.579.2.204 1971 Unknown [id number] 2.16.840.1.365527.3.579.2.204 1971 Unknown [id number] 2.16.840.1.033628.3.579.2.204 1971 Unknown [id number] 2.16.840.1.748404.3.579.2.175 1971 Unknown [id number] 2.16.840.1.146541.3.579.2.175 1971 Unknown [id number] 2.16.840.1.042968.3.579.2.175 1971 Unknown [id number] 2.16.840.1.453963.3.579.2.175 1971 Unknown [id number] 2.16.840.1.138160.3.579.2.693 1971 Unknown [id number] 2.16.840.1.673334.3.579.2.693 1971 Unknown [id number] 2.16.840.1.612329.3.579.2.732 1971 Unknown [id number] 2.16.840.1.850175.3.579.2.356 1971 Unknown [id number] 2.16.840.1.499536.3.579.2.356 1971 Unknown [id number] 2.16.840.1.724468.3.579.2.356 1971 Unknown [id number] 2.16.840.1.753058.3.579.2.727 1971 Unknown [id number] 2.16.840.1.707606.3.579.2.174 1971 Unknown [id number] 2.16.840.1.227717.3.579.2.174 1971 Unknown [id number] 2.16.840.1.060064.3.579.2.727 1971 Unknown [id number] 2.16.840.1.021617.3.579.2.727 1971 Unknown [id number] 2.16.840.1.358382.3.579.2.727 1971 Unknown [id number] 2.16.840.1.131917.3.579.2.727 1971 Unknown [id number] 2.16.840.1.282487.3.579.2.727 1971 Unknown [id number] 2.16.840.1.691463.3.579.2.727 1971 Unknown [id number] 2.16.840.1.178200.3.579.2.727 1971 Unknown [id number] 2.16.840.1.548756.3.579.2.727 1971 Unknown [id number] 2.16.840.1.337776.3.579.2.727 1971 Unknown [id number] 2.16.840.1.056710.3.579.2.727 1971 Unknown [id number] 2.16.840.1.790906.3.579.2.727 1971 Unknown [id number] 2.16.840.1.611696.3.579.2.727 1959 Unknown [id number] 1.2.840.104051.1.13.239.2.7.3.6 20910.315 Unknown [id number] Unknown [id number] 2.16.840.1.558564.3.579.2.531 Unknown [id number] 2.16.840.1.267919.3.579.2.531 Unknown [id number] 2.16.840.1.085689.3.579.2.531 Unknown [id number] 2.16.840.1.004642.3.579.2.531 Social History Date Type Detail Facility Tobacco smoking status [facility] Unknown if ever smoked [facility] Start: 1970 Sex Assigned At Male F [facility] Start: 01-14-2020 End: 05-05-2023 Tobacco smoking status CTIS Current some day smoker [facility] History of tobacco use Cigar Sm[place] Start: 01-14-2020 End: 09-08-2021 Alcohol intake Current drinker of alcohol (finding) [place] Start: 01-14-2020 Alcohol Comment occas [place], [place] Start: 1970 Sex Assigned At Not [facility] file [facility] Exposure to SARS-CoV-2 (event) Unable to assess [facility] Start: 09-29-2018 End: 01-17-2020 Tobacco smoking status [facility] Start: 12-13-2019 End: 2024 Tobacco smoking status NHIS [facility] Start: 05-18-2019 Alcohol intake Yes [facility] Tobacco smoking consumption unknown [facility] Start: 03-29-2021 End: 02-01-2023 Homeless Homeless (V60.0) [facility] Start: 03-29-2021 End: 09-08-2021 Tobacco use and exposure Never used [employer] Exposure to SARS-CoV-2 (event) Not sure [employer] History of tobacco use Cigarette Smoker [facility] Start: 02-04-2020 End: 02-01-2023 History SDOH Alcohol Std Drinks 1 [facility] Start: 02-04-2020 End: 02-02-2023 History SDOH Alcohol Binge 2 [facility] Start: 02-21-2021 History SDOH Alcohol Comment pt sts a beer a day. daily [facility] History of tobacco use Current smoker [employer] Work Phone: Start: 02-01-2023 History SDOH Alcohol Std Drinks 0 [employer] Work Phone: Start: 02-02-2023 History SDOH Alcohol Frequency 4 [employer] Work Phone: Start: 09-08-2021 Tobacco smoking status CTIS Smokes tobacco daily [facility] Tobacco smokes a cigar a bout once a month Tobacco Use:. Cigars [facility] Comment on above: denies at this time Tobacco smoking status No Smoking Status Entered [facility] Start: 07-14-2024 Tobacco smoking status NHIS Current Light tobacco smoker [facility] Goals Date Patient Goal Desired Activity /State Functional Status Date Assessment Result Facility 08-07-2024 Functional Status N/A [facility] 08-02-2024 Functional Status N/A [facility] 2024 Functional Status N/A [facility] 07-17-2024 Functional Status N/A [facility] 07-16-2024 Functional Status N/A [facility] 07-11-2024 Functional Status N/A [facility] 07-09-2024 Functional Status N/A [facility] Functional observable [facility] Mental Status Date Assessment Result Facility 07-05-2021 Cognitive functions 92211:32 [facility] 03-02-2021 Cognitive functions 10269:40 [facility] Clinical Notes 07-24-2020 to 08-07-2024 Note Date & Type Note Facility 08-07-2024 Evaluation + Plan note Extrac sebastián from: Title:ED Note Author:Xena CHURCH, Piyush Martines te:08/07/24 Medicine refill (Z76.0: [facility] unter for issue of repeat prescription) Orders: nitroglycerin, See Instructions, PRN hypertension, 1 tab(s) SubLingual q5min/htn, # 15 tab(s), Refills(s) 0, Pharmacy: [id number], 167.6, cm, 08/07/24 11:50:00 EST, Height/Length Dosing, 96, kg, 08/07/24 11:50:00 EST, Weight Dosing Future Appointments Appointment Date:08/19/2024 12:00:00 PM Scheduled Provider: Location:[facility] Appointment Type:Surgery FT Appointment Date:09/09/2024 10:15:00 AM Scheduled Provider:Darleen Mahajan MD Location:[facility] Appointment Type:URO New Patient [facility] 11-15-2024 Hospital Discharge instructions Patient Education 08/07/2024 [...] follow-up visits. This is important. Medicines Take ofzb-vxi-yzgustr and prescription medicines only as told by [...] Document Reviewed: 07/17/2022 Elsevier Patient Education 2023 [employer]. Follow Up Care 08/07/2024 11:45:18 With:Yang VALENCIA Address: [address] [place] [address] Business (1) When:08/10/2024 11:54:58 [facility] 11-15-2024 NoteED Patient Education Note Cardiovascular Hypertension, [...] drink equals one 12 oz (more content notincluded)...[facility]11-11-2024 Hospital Discharge instructions Patient Education 08/02/2024 23:47:34 Panic Attack, Pjrn-qc-Iocs Panic Attack A panic attack is when [...] hard liquor (44 mL). General instructions Take zagc-ccj-apsqcpk and prescription medicines only as told by [...] Mental Health Services Administration (SAMHSA): samhsa.gov National [place] of Mental Health (NIMH): www.nimh.nih.gov Contact a [...] the National Suicide Prevention Lifeline at or 441. This is open 24 hours a day. Text the Crisis Text Line at 153828. Summary A panic attack is when you [...] provider. Document Revised: 04/19/2022 Document Reviewed: 04/19/2022 [facility] Patient Education 2023 [employer]. Follow Up Care 08/02/2024 20:38:21 With:[facility] Address:Unknown When:08/05/2024 Comments:Follow-up with your primary care doctor and mental health for further evaluation management. With:Yang VALENCIA Address: [address] [place] [address] Business (1) When:08/05/2024 [facility] 11-10-2024 NoteED Patient Education Note Mental and [...] liquor (44 mL). General instructions ??? Take janz-urk-khhfjgj and prescription medicines only as told by [...] Health Services Administration (SAMHSA): samhsa.gov ??? National [place] of Mental Health ([facility]): www.channing homeh.nih.gov Contact a doctor if: ??? Your symptoms [...] the National Suicide Prevention Lifeline at or 934. This is open 24 hours aday. ??? Text the Crisis Text Line at 121726. Summary ??? A panic attack is when [...] Reviewed: 04/19/2022 Elsevier Patient Education ? [address] [facility] 08-02-2024 Evaluation + Plan noteExtracted from: Title:ED Note Author:Denicourtney STRAUSSPasquale Date :08/02/24 Anxiety (F41.9: Anxiety diso rder, unspecified) Orders: CBC w/ Auto Diff Communication Order Comprehensive Metabolic Panel Consult to Mental Health Drug Screen Urine ECG 12 Lead Adult eGFR Ethanol Level UA with Cult Rflx Future Appointments Appointment Date:08/19/2024 12:00:00 PM Scheduled Provider: Location:[facility] Services Appointment Type:Surgery FT [facility] 10-26-2024 Evaluation + Plan noteExtracted from: Title:ED Note Author:Neil Alexander DO Date: Anxiety (F41.9: Anxiety diso rder, unspecified) [facility] 10-26-2024 Hospital Discharge instructions Patient Education 07/18/2024 [...] your provider. Avoid caffeine, alcohol, and certain blnd-gir-bivywuk cold medicines. These may make you feel worse. Ask your pharmacist which medicines to avoid. General instructions Take zlcr-tza-mvqwvjj and prescription medicines only as told by [...] Depression Association of [place] (ADAA): adaa.org National Stites on Mental Illness (GLENNY): glenny.org Contact a [...] the National Suicide Prevention Lifeline at or 017. This is open 24 hours a day. Text the Crisis Text Line at 752864. This information is not intended to replace advice given to you by your health care provider. Make sure you discuss any questions you have with your health care provider. Document Revised: 06/18/2023 Document Reviewed: 12/31/2021 [facility] Patient Education 2023 [employer]. Follow Up Care 07/17/2024 20:34:54 With:Elizabet Mackay Address: [address] [place] [address] When:07/21/2024 Comments:Call the office of your primary [...] you develop any new or worsening symptoms. [facility] 10-26-2024 NoteED Patient Education Note [...] Do not use any (more content not included)...[facility] 07-17-2024 Hospital Discharge instructions Patient Education [...] care for your mental health from: National Stites on Mental Illness (GLENNY): www.glenny.org National [place] of Mental Health: www.nimh.nih.gov Centers for Disease [...] the National Suicide Prevention Lifeline at or 027 in the [place].. This is open 24hours a day. Text the Crisis Text Line at 382729. Summary Mental health is not just the [...] provider. Document Revised: 04/05/2022 Document Reviewed: 03/30/2022 [facility] Patient Education 2023 [employer]. Follow Up Care 07/16/2024 21:12:56 With:[facility] Address:Unknown When:07/19/2024 Comments:You have an appointment at the [facility] tomorrow at 10 AM. With:Yang VALENCIA Address: [address] [place], [place] [id number] [facility] (1) When:07/19/2024 Comments:Call the office of your [...] you develop any new or worsening symptoms. [facility] 10-24-2024 NoteED Patient Education Note [...] with emotions. Where to (more content not included)...[facility]10-19-2024 Hospital Discharge instructions Patient Education 07/11/2024 [...] your friends, family, a trusted colleague, and dining service worker about your injury, symptoms, and restrictions. Ask them to watch for any problems that are new or get worse. General instructions Take itqe-njk-jkybkdl and prescription medicines only as told by [...] provider. Document Revised: 06/27/2023 Document Reviewed: 06/27/2023 [facility] Patient Education 2023 [employer]. 07/11/2024 14:18:44 Palpitations Palpitations Palpitations are feelings [...] ask your health careprovider. General instructions Take cazx-iat-jmvkopd and prescription medicines only as told by [...] provider. Document Revised: 01/31/2022 Document Reviewed: 01/31/2022 [facility] Patient Education 2023 [employer]. Follow Up Care 07/11/2024 10:44:14 With:Rao Samayoa Address: [address] [place] [phone] Business (1) When:07/14/2024 14:00:32 Comments:Follow-up with Dr. Samayoa for Holter monitor placement and Dr. Valencia as discussed. Return to the emergency room if your palpitation recurs, headache gets worse or any new symptoms. With:Yang VALENCIA Address: [address] [place] [address]- Business (1) When:Within 3 Day(s) [facility] 10-19-2024 NoteED Patient Education Note [...] health care provider. General instructions ? Take hapa-tri-otrrxar and prescription medicines only as told by [...] provider. Document Revised: 01/31/2022 Document Reviewed: 01/31/2022 [facility] Patient Education ? 2023 [employer]. Neurology Head Injury, Adult There are many [...] ? Nausea or vomit (more content not included)...[facility] 07-09-2024 Hospital Discharge instructions Patient Education [...] follow-up visits. This is important. Medicines Take tdbg-rij-dlvpvoy and prescription medicines only as told by [...] provider. Document Revised: 07/17/2022 Document Reviewed: 07/17/2022 [facility] Patient Education 2023 [employer]. Follow Up Care 07/09/2024 18:18:59 With:Gisell Grady Address: [address] [place] [address], [address] [place] [phone] Business (1) When:07/12/2024 19:40:55 Comments:follow with GI for your abdominal pain With:Yang VALENCIA Address: [address] [place] [phone]- Business (1) When:Within 3 Day(s) [facility] 10-17-2024 NoteED Patient Education Note [...] glass of wine ( (more content not included)...[facility]09-09-2023 Hospital Discharge instructions ED Discharge Education [...] Primary Care Provider : Viral Amado (PCP) ([facility] 3[facility]) - Internal Medicine, Physician [facility] 09-07-2023 Hospital Discharge instructions* Discharge Instructions* Riley Crawford MD - 05/30/2023 5:14 PM EDT Keep yourself well hydrated. Avoid alcohol. See your physician this week. Procedures done during this visit: None * Attachments The following attachments cannot be sent through Care Everywhere. * Dizziness, Nonvertigo, Discharge Instructions (Scottish) documented in this [id number] Physician Emergency department Note* Riley Crawford MD - 05/30/2023 1:58 PM EDT EMERGENCY DEPARTMENT - VISIT NOTE HISTORY OF PRESENT ILLNESS Chief Complaint Patient presents with Dizziness Dizziness upon standing Soccer Commentator: not needed - patient preferred language is Scottish. 52-year-old male was apparently on a park [...] homeand he states that he lives in Home. Yesterday he was seen at 3 different [facility] Emergency department's, the 1st time at [facility] where he apparently was acting unruly at a gas stationand ended up signing out AMA. He was then seen at [facility] for dark stools and palpitations and was treated and released and finally he was evaluated at [facility] and treated and released. Indeed he [...] as a vasoconstrictor History provided by: PatientLanguage solid waste facility supervisor used: No REVIEW OF SYSTEMS Review of [...] Medical History: Diagnosis Date Bipolar 1 disorder ([facility]) Homeless Thoracic aortic aneurysm ([facility]) Patient Active Problem List: BPPV (benign paroxysmal positional vertigo) [H81.10] Vestibular neuritis [H81.20] Bipolar disorder ([facility]) [F31.9] Essential hypertension [I10] Paresthesia [R20.2] Homeless [Z59.00] Pulmonary embolism ([facility]) [I26.99] Aneurysm of thoracic aorta ([facility]) [I71.20] Anxiety [F41.9] Renal artery stenosis ([facility]) [I70.1] Pertinent Social History: Social History Tobacco [...] on the discharge paperwork. Riley Crawford MD [id number] Emergency department Note* Riley Crawford MD - 05/30/2023 1:58 PM EDT EMERGENCY DEPARTMENT - VISIT NOTE HISTORY OF PRESENT ILLNESS Chief Complaint Patient presents with Dizziness Dizziness upon standing Soccer Commentator: not needed - patient preferred language is Scottish. 52-year-old male was apparently on a park bench and called for EMS for dizziness. He states [facility]was [facility] I asked what he was doing there and he states that he was hiking . However he is accompanied by a huge bag full of his belongings. I asked where he lives or if he has a homeand he states that he lives in Home. Yesterday he was seen at 3 different [facility] Emergency department's, the 1st time at [facility] where he apparently was acting unruly at a gas stationand ended up signing out AMA. He was then seen at [facility] for dark stools and palpitations and was treated and released and finally he was evaluated at [facility] and treated and released. Indeed he [...] as a vasoconstrictor History provided by: PatientLanguage solid waste facility supervisor used: No REVIEW OF SYSTEMS Review of [...] Medical History: Diagnosis Date Bipolar 1 disorder ([facility]) Homeless Thoracic aortic aneurysm ([facility]) Patient Active Problem List: BPPV (benign paroxysmal positional vertigo) [H81.10] Vestibular neuritis [H81.20] Bipolar disorder ([facility]) [F31.9] Essential hypertension [I10] Paresthesia [R20.2] Homeless [Z59.00] Pulmonary embolism ([facility]) [I26.99] Aneurysm of thoracic aorta ([facility]) [I71.20] Anxiety [F41.9] Renal artery stenosis ([facility]) [I70.1] Pertinent Social History: Social History Tobacco [...] Course: ED Course as of 05/30/23 1719 [facility] May 30, 2023 985 Patient is smiling, has been cooperative, not [...] paperwork. Riley Crawford MD documented in this [id number] Hospital Discharge instructions ED Discharge Education Evaluation [...] Primary Care Provider : Viral Amado (PCP) ([facility] 9955) - Internal Medicine, Physician [facility] 08-19-2023 NotePROCEDURE: CHEST 2 VIEW - WXR 0020 REASON FOR EXAM: Palpitations RESULT: Patient Name: HOSEA ALVAREZ STUDY: CHEST 2 VIEW 05/11/2023 3:46 pm INDICATION: Palpitations COMPARISON: 01/29/2023 ACCESSION NUMBER(S): [id number] ORDERING CLINICIAN: THALIA ROBERTO TECHNIQUE: Two views chest FINDINGS: Cardiomediastinal silhouette is mildly enlarged. Aorta is tortuous. No infiltrate or effusion identified. Mild multilevel anterior osteophyte formation midthoracic spine. No compression deformity demonstrated. IMPRESSION: No acute cardiopulmonary process. Dictation workstation: [id number] Original Interpreting Physician: TARAN PINA MD Original Transcribed by/Date: MMODAL May 11 2023 3:18P Original Electronically Signed by/Date: TARAN PINA MD May 11 2023 3:59P Addendum Interpreting Physician: Addendum Transcribed by/Date: NO ADDENDUM Addendum Electronically Signed by/Date: SYNGO [id number] History of Present illness Narrative* Saima Mattson - 02/01/2023 4:28 PM EDT CLINICAL PHARMACY NOTE: MEDS TO BEDS Total # of Prescriptions Filled: 3 The following medications were delivered to the patient: Docusate 100mg Polyeth glyc powder Lidocaine soln Additional Documentation: Picked up by Annette Olmos documented in this [facility] Work Phone: [phone]) 690-784205-03-2023 Hospital Discharge instructions ED Discharge Education Evaluation [...] Primary Care Provider : Viral Amado (PCP) ([facility] 9892) - Internal Medicine, Physician [facility] 04-24-2023 NoteED Nursing Discharge Summary Entered On: 01/14/2023 11:09 EDT Performed On: 01/14/2023 11:05 EDT by Kaleigh Sanchez RN VA Information [id number] ED IV's : No IV ED IV Site Assessment : No IV ED Vitals Completed : Yes ED Final Assessment Completed : Yes ED Progress Note Completed : Yes Complete all PRN/Pain response forms? : N/A ED Disassociate Patient from Monitor : Yes Updated Depart Time : Yes ED Belongings sent w patient [id number] : Not applicable Kaleigh Sanchez RN - [...] Kaleigh Sanchez RN - 01/14/2023 11:09 EDT [facility]04-01-2022 Miscellaneous Notes* Telephone Encounter - Tere Parker - 12/22/2021 12:00 PM EDT Patient phones requesting refills as follows: Pending Prescriptions Disp Refills METOPROLOL TARTRATE 25 MG TABLET 90 tablet 5 Sig: Take one pill twice a day and may take additional pill as needed JOSE: No Please review and advise. Tere Parker [facility] NoteChart Update Insurance Underwriter received an email communication from Dr. Viral Amado explaining that patient is currently in [place] receiving treatment there. Insurance Underwriter agreed to contact compliance program manager with whom patient has beencommunicating to inform her of this change in treatment. Insurance Underwriter to follow up next week. Signatures Electronically signed by : STONE Trent; Oct 27 2021 3:29PM EST (Author) [id number] Hospital Discharge instructions Patient Transfer Information from [...] Primary Care Provider : Viral Amado (PCP) ([facility] 0945) - Internal Medicine, Physician [facility] 11-20-2021 History [...] endorsing cardiology and vascular surgery visits in [place], [place] and [place] over the past 1 year. He has had multiple ED visits and some hospitalizations with various and duplicate testing. He most recently reports going to [facility] for aCT to evaluate his aorta. He notes compliance with medication although is taking Clonidine 'like candy and has run out of Losartan about 3 day ago. 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 He notes some atypical and nonexertional chest pain and occasional palpitations and is requesting several tests. He is active and rides his bicycle for exercise and as his mode of transportation. He denies any symptoms specific to activity. The patient denies any shortness of breath, PND, orthopnea, lightheadedness, syncope, lower extremity edema or bleeding problems.[facility] Work Phone: [phone] Hospital Discharge instructions ED Discharge Education Evaluation [...] 08/06/2021 11:11 AM: * LOC : Alert [facility] 11-05-2021 Hospital Discharge instructions ED Discharge Education [...] * Patient stated Primary Care Provider : [facility] 11-03-2021 Hospital Discharge instructions Patient Transfer Information from 07/26/2021 3:16 PM: * LOC : Alert [facility] 10-22-2021 Hospital Discharge instructions Patient Transfer Information from 07/14/2021 12:20 PM: * LOC : Alert Physician Follow-up Plan/Appointments from 07/14/2021 12:20 PM: * Patient stated Primary Care Provider : [facility] 10-21-2021 Hospital Discharge instructions Patient Transfer Information from 07/13/2021 3:40 PM: * LOC : [facility] 10-20-2021 Hospital Discharge instructions ED Discharge Education [...] Primary Care Provider : PCP, Other (PCP) (ZAC 8770) - Medical [facility] 10-18-2021 Hospital Discharge instructions Patient Transfer Information from 07/10/2021 12:01 PM: * LOC : [employer] [facility] 10-18-2021 History of Present illness Narrative* HOSEA [...] alcohol abuse, pulmonary embolism presents to [facility] urgent care for 8/10 left scapular pain. Pain started about 1 hour ago. It has only been in the back. No chest pain, shortness of breath,arm, jaw or shoulder pain, vision changes, fatigue, dyspnea on exertion, headache. He went to [facility] today for evaluation but states his wait time exceeded his expectations to he left and came hereto urgent care. * PMHx includes he was admitted for chest pain 07-05 at [facility]. He had some increased troponin elevation [...] up has appointment with Dr. Beckford, his expressive art therapist tomorrow. [facility] Work Phone: [phone] NoteSend Summary: Discharge Summary Providers: Provider RoleProvider Name Santa Hurtado Daniel R ConsultingStefano, Gregory PrimaryDavid, Joel Note Recipients: Viral Amado DO - [phone] [Preferred] Discharge: Summary: Admission Date: .05-Jul-2021 01:00:00 Discharge Date: 05-Jul-2021 Attending Physician at Discharge: Elgin Lambert Admission Reason: Atypical chest pain, palpitations(1) Final Discharge Diagnoses: Elevated troponin level Procedures: none Condition at Discharge: Satisfactory Disposition at Discharge: .Home Vital Signs: T PRBPSpO2 Value36.04949694/8695% Date/Time07/05 5: 5: 5: 8: 5:16 Range(36.6C - 36.7C ) (57 - 67 ) (16 - 16 ) (124 - 137 )/ (73 - 86 ) (94% - 95% ) Date: Weight/Scale Type:Height: 05-Jul-2021 01:5386.4 kg / fngxovsf403.1 cm Physical Exam: Physical Exam on day [...] get it all done with his outpatient expressive art therapist. He was discharged to home in stable [...] Atorvastatin 40mg daily Follow up with your expressive art therapist Discharge Medications: Home Medication losartan 50 mg [...] References: 1. Data Referenced From Consult-Cardiology 05-Jul-2021 11:35[facility]10-13-2021 NoteHistory of Present Illness: HPI: [...] yesterday. [place], and was brought to an outside hospital where troponin was elevated. He was started on a heparin drip and sent to [place] for cardiology evaluation. He denies shortness of [...] wanted to call his cardiologists office at [facility]. Although he does have a hx [...] a day. Objective: Objective Information: T PRBPSpO2 Value36.55056156/8695% Date/Time07/05 5: 5: 5: 8: 5:16 Range(36.6C [...] 07/05/2021 09:28 NA+ Cl (more content not included)...[facility]09-29-2021 Note UHFFLREFN_1st 6 Month Referral 6 NleUD-Jbwlaehddhmvdpmy-Qcmzxed 6 [facility] Work Phone: [phone] NoteUHFFLVN1 of 6 Visits-Max 6 Visits/Referral Each 6 Mo IhzimcPY-Edazzmswkitfmmyn-Bxwqmvu 6 [facility] Work Phone: [phone] [facility], will task once department is set up with [address] Work Phone: [phone] NoteUHFFLREFN_1st 6 Month Referral [address] [place] [address] Work Phone: [phone] NoteUHFFLVN1 of 6 Visits-Max 6 Visits/Referral Each 6 Mo [facility] Work Phone: [phone] [facility]- no [facility] yet, will task once department is set up with [facility] Work Phone: [phone] NoteUHFFLREFN_1st 6 Month Referral 6 [address] [facility] [address] Work Phone: [phone] NoteUHFFLVN1 of 6 Visits-Max 6 Visits/Referral Each [address] Work Phone: [phone] NoteUHFFLOSCMC- no referral yet, will task MD once department is set up with usMP-[address] Work Phone: [phone] NoteUHFFLREFN_1st 6 Month Referral 6 MosM- [facility] Work Phone: [phone] NoteUHFFLVN1 of 6 Visits-Max 6 Visits/Referral Each 6 Mo [facility] Work Phone: [phone] NoteUHFFLOSC- no referral yet, will task MD once department is [facility] Work Phone: [phone] NoteUHFFLREFN_1st 6 Month Referral 6 MosMG- [facility] [address] Work Phone: [phone] NoteUHFFLVN1 of 6 Visits-Max 6 Visits/Referral Each 6 Mo Period-[facility] [address] Work Phone: [phone] NoteUHFFLOSC- no referral yet, will task MD once department is set up with [facility] [address] Work Phone: [phone] NoteUHFFLREFN_1st 6 Month Referral 6 MosMG- [facility] [address] Work Phone: [phone] NoteUHFFLVN1 of 6 Visits-Max 6 Visits/Referral Each 6 Mo PeriodMG-[facility] [address] Work Phone: [phone] NoteUHFFLOSCMC- no referral yet, will task MD once department is set up with [facility] [address] Work Phone: [phone] NoteUHFFLREFN_1st 6 Month Referral 6 Mos MQ-Fvaxcyhorr-Vnrxkvr [address] Work Phone: [phone] NoteUHFFLVN1 of 6 Visits-Max 6 Visits/Referral Each 6 Mo FdeubgRT-Eqimzlleqb-Leuugzv [address] Work Phone: [phone] NoteUHFFLOSCMC- no referral yet, will task MD once department is set up with vpMU-Widtgvhjby-Tbbjxic [address] Work Phone: [phone] NoteUHFFLREFN_1st 6 Month Referral 6 Mos[facility] Work Phone: [phone] NoteUHFFLVN1 of 6 Visits-Max 6 Visits/Referral Each 6 Mo [facility]MP[facility] Work Phone: [phone] NoteUHFFLOSC- no referral yet, will task MD once department is set up with [facility] Work Phone: [phone] NoteUHFFLREFN_1st 6 Month Referral 6 Mos PF-Tdefnbeijc-Qwidql 116[address] Work Phone: [phone] NoteUHFFLVN1 of 6 Visits-Max 6 Visits/Referral Each 6 Mo HmteasDU-Oyyzvmanqu-Ookkst 1162 Work Phone: [phone] NoteUHFFLOSC- no referral yet, will task MD once department is set up with ldBC-Uflohhsvpi-Nmsudm 1162 Work Phone: [phone] NoteUHFFLREFN_1st 6 Month Referral 6 Mos RJ-Tidmawtttn-Bkfaoii [address] Work Phone: [phone] NoteUHFFLVN1 of 6 Visits-Max 6 Visits/Referral Each 6 Mo VilmghSN-Ytsbtaendg-Rvzbkwo [address] Work Phone: [phone] NoteUHFFLOSC- no referral yet, will task MD once department is set up with rsDI-Wvhvzijwrp-Ouzfwrf [address] Work Phone: [phone] Hospital Discharge instructions ED Discharge Education Evaluation [...] Care Provider : PCP, Other (PCP) (MSI 9517) - Medical [facility] 09-27-2021 History of Present illness Narrative* yesterday, [...] also took metoprolol and clonidine, extra [facility] Work Phone: [phone] Hospital Discharge instructions Patient Transfer Information from 06/19/2021 4:16 PM: * LOC : Alert Physician Follow-up Plan/Appointments from 06/19/2021 4:16 PM: * Patient stated Primary Care Provider : PCP, Other (PCP) ([facility] 8249) - Medical S 09-26-2021 Hospital Discharge instructions [...] Primary Care Provider : PCP, Other (PCP) ([facility] 5114) - [facility] 09-20-2021 Hospital Discharge instructions ED [...] Primary Care Provider : PCP, Other (PCP) ([facility] 2437) - [facility] 08-24-2021 Hospital Discharge instructions ED [...] Primary Care Provider : PCP, Other (PCP) ([facility] 5110) - [facility] 08-24-2021 Hospital Discharge instructions Physician Follow-up Plan/Appointments from 05/15/2021 10:37 PM: * Patient stated Primary Care Provider : PCP, Other (PCP) ([facility] 5110) - [facility] 08-18-2021 Hospital Discharge instructions Patient Transfer Information from 05/10/2021 2:05 PM: * LOC : Alert Physician Follow-up Plan/Appointments from 05/10/2021 2:05 PM: * Patient stated Primary Care Provider : PCP, Other (PCP) ([facility]I 5110) - [facility] 08-15-2021 Hospital Discharge instructions Patient Transfer Information from 05/07/2021 4:41 AM: * LOC : Alert [facility] 08-14-2021 Hospital Discharge instructions ED Discharge Education [...] Primary Care Provider : Catalino Murrieta MD ([id number]) - Internal Medicine [facility] 08-10-2021 Hospital Discharge instructions Patient Transfer Information from 05/02/2021 6:44 PM: * Pain Location #1 : right flank * Pain Rating : 5 Physician Follow-up Plan/Appointments from 05/02/2021 8:08 PM: * Patient stated Primary Care Provider : Catalino Murrieta MD ([id number]) - Internal Medicine [facility] 07-29-2021 NoteHistory & Physical Reviewed: I have [...] the note. I personally evaluated the patient [id number] Electronic Signatures: Tay Lott) (Signed 20-Apr-2021 17:24) Authored: Note Completion Co-Signer: History & Physical Reviewed, ERAS, Consent, Note Completion River Hernandez (Resident)) (Signed 20-Apr-2021 06:45) Authored: History & Physical Reviewed, ERAS, Consent, Note Completion Last Updated: 20-Apr-2021 17:24 by Tay Lott)[facility] 04-18-2021 NoteSend Summary: Discharge Summary Providers: Provider RoleProvider Name AttendingCarlos Carrillo Joel Note Recipients: Viral Amado DO - [phone] [Preferred] Carlos Carrillo MD Discharge: Summary: Admission [...] at Discharge: .Home Vital Signs: T PRBPSpO2 Value36.56188129/24671% Date/Time04/17 16:137 16:137 16:137 16:147/ 16:13 Range(36.4C - 36.9C ) (58 - 73 ) (16 - 19 ) (103 - 148 )/ (64 - 96 ) (97% - 100% ) Highest temp of 36.9 C was recorded at 04/17 8:16 Date: Weight/Scale Type:Height: 17-Apr-2021 04:2085.7 kg / vldliqlw898.1 cm Physical Exam: Please refer to detailed [...] Having his medical care between here in [place]. He said he has an appointment for [...] himself said he lives between here in [place] because of the medical care at 2 [...] ROM, Pain, Swelling, Stiffnes (more content not included)...[facility]07-26-2021 NoteHistory of Present Illness: Admission Reason: [...] Having his medical care between here in [place]. He said he has an appointment for [...] himself said he lives between here in [place] because of the medical care at 2 [...] NEGATIVE: Gynecomastia Objective: Objective Information: T PRBPSpO2 Value36.16095832/92710% Date/Time04/17 16: 16: 16: 16: 16:13 Range(36.4C [...] Head/Neck: Neck supple, n (more content not included)...[facility] 04-11-2021 Hospital Discharge instructions ED Discharge [...] Primary Care Provider : PCP, Other (PCP) ([facility] 1940) - Medical [facility] 07-19-2021 Hospital Discharge instructions ED Discharge Education [...] Primary Care Provider : PCP, Other (PCP) ([facility] [id number]) - Medical [facility] 07-15-2021 History of Present illness Narrative* 50 year old male with PMH of HTN, bipolar disorder, ascending aortic aneurysm and renal artery stenosis here for initial evaluation. He has been receiving care at [facility] in [place] and recently moved back to [place]. He states Dr. Juan Franz has been monitoring his ascending aortic aneurysm as well as his left renal artery stenosis and that both have been stable as of last July. He was evaluated at 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 He has been receiving care at [facility] in [place] and recently moved back to [place]. He states Dr. Juan Franz has been monitoring his ascending aortic aneurysm as well as his left renal artery stenosis and that both have been stable as of last July. He was evaluated at 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 * Attachments The following attachments cannot be sent through Care Everywhere. * Chest Pain (Scottish) documented in this [facility] Work Phone: [phone]) [phone] Hospital Discharge instructions ED Discharge Education Evaluation [...] Primary Care Provider : PCP, Other (PCP) (OQN 5467) - Medical [facility] 06-26-2021 Hospital Discharge instructions ED Discharge Education Evaluation from 03/18/2021 3:17 AM: * Educ Topic #1 : No Education materials given during your stay from 03/18/2021 3:17 AM: * Learning Barrier : None Patient Transfer Information from 03/18/2021 4:30 AM: * Pain Rating : FLACC,0 Physician Follow-up Plan/Appointments from 03/18/2021 1:50 AM: * Patient stated Primary Care Provider : Viral Amado [facility] 06-07-2021 Hospital Discharge instructions ED Discharge Education [...] Primary Care Provider : Hank Bunch MD ([id number]) - [facility] 06-06-2021 Hospital Discharge instructions ED Discharge Education [...] Primary Care Provider : Hank Bunch MD ([id number]) - [facility] 05-30-2021 Hospital Discharge instructions ED Discharge Education [...] Primary Care Provider : Hank Bunch MD ([id number]) - [facility] 05-30-2021 Hospital Discharge instructions ED Discharge Education [...] 02/19/2021 2:39 AM: * LOC : Alert [facility] 05-26-2021 Chief complaint Narrative - Reported* An [...] in many hospital systems in at least [place] and [place] [address] [address] Work Phone: [phone] History of Present illness Narrative* Initial visit of 50 y/o male for complaint of difficulty swallowing * 02/15/2021 seen in [place] ED with left upper quadrant discomfort after he had drank beer prior. Hedenied any associated nausea, vomiting. He went to [place] ED prior night for complaint, but stated they only checked his heart and did not obtain CT imaging. Mild LUQ tenderness on exam. Given IV fluids, GI cocktail and Pepcid. Labs including lipase and troponin unremarkable. CT of the chest abdomen pelvis shows no acute process. Stable 4.4 cm ascending aortic aneurysm. [place] better on re-exam and denied abdominal pain. He was recommended to subside on his drinking. * Seen in [place] ED 02/18/2021 due to trouble swallowing. Patient [...] do one. * had been living in [place], [place] until recently and followed with [place]. Past 2 weeks, feels solid foods press against heart. Avocado and soup okay. When ate his girlfirends pot roast it felt bad. Feels it gets stuck in chest, and then has right abdominal pain. Appetite good, but can't eat because he Feels there is a mass pushing . At [facility] was on Eliquis, and had bloating [...] feels better. Has an appointment with Daniella senior case manager February 27 for mental health. States [...] 24 ounces beer/day. No illicit drug use. [facility] Work Phone: [phone] Hospital Discharge instructions ED Discharge Education Evaluation [...] 02/15/2021 9:29 AM: * LOC : Alert [facility] 05-26-2021 Hospital Discharge instructions ED Discharge Education [...] stated Primary Care Provider : PCP, NONE ([id number]) [facility] 05-14-2021 NoteEmergency: Diagnostic Ultrasound Test:biliary Indication:abdominal pain [...] Attestation Last Updated: 03-Feb-2021 05:34 by Lily Wolf)[facility] 09-23-2020 History of Present illness Omgcwzzcf14 year old male being seen for telephone [...] pressure is better controlled since starting Losartan.-[facility] [address] Work Phone: [phone] History of Present illness Narrative* Follow up of 50 y/o man w/ PMHx HTN, Ascending Aortic Aneurysm, ELIANA, Hyperlipidemia, ? * Bipolar, PTSD, P.E. 07/2020, Covid -19 07/2020 for complaint of difficulty swallowing with associated chest discomfort. * At initial visit 02/22/2021, on review of [place], he had at least 30 local ED visits since January 26, 2021 with all but 5 of those being related to a chest complaint. He had been seen at [facility], [facility], and [facility]. In the [facility] system, he has been seen at their main campus, [facility], and Home. Additionally in that timeframe he has been seen at [facility], [facility], [facility], [facility]. He has undergone [...] profane abuse of office staff. Admitted to [facility] 04/17/2021 for possible syncope. He apparently had some right-sided chest discomfort and some right arm numbness * Had Esophagram 03/30/2021 at [facility] that was unremarkable without stricture orhiatal hernia. He has also had further repeated CTA imaging with CTA Chest 03/17/2021 at [facility], CTA 04/04/2021 at [place] and CTA Chest, A?P 04/16/2021 at [facility] without new findings. * On follow up [...] his right arm. * States spoke to [facility] about getting a endoscopy. Wants to have with minimal sedation. Pain pushes on back as well. [place] Omeprazole did not help. Feels he is having hemorrhoids and problems. Does not want to try other medications since he feels issue is due to a mass. CE-Zxpbklmzflmsenup-Hyrkktc 6 [facility] Work Phone: 1([phone] 950-151311-01-2020 History of Present illness Narrative* Follow up of 50 y/o man w/ PMHx HTN, Ascending Aortic Aneurysm, ELIANA, Hyperlipidemia, ? Bipolar, PTSD, P.E. 07/2020, Covid -19 07/2020 for complaint of difficulty swallowing with associated chest discomfort. * At initial visit 02/22/2021, on review of [facility], he had at least 30 local ED visits since January 26, 2021 with all but 5 of those being related to a chest complaint. He had been seen at [facility], [facility], [facility], and [facility]. In the [facility] system, he has been seen at their main campus, [place], [facility], and Home. Additionally in that timeframe he has been seen at [facility], [facility], [facility], and the [facility]. He has undergone at least 3 CTAs [...] profane abuse of office staff. Admitted to [facility] 04/17/2021 for possible syncope. He apparently had some right-sided chest discomfort and some right arm numbness * Had Esophagram 03/30/2021 at [facility] that was unremarkable without stricture orhiatal hernia. He has also had further repeated CTA imaging with CTA Chest 03/17/2021 at [facility], CTA 04/04/2021 at [place] and CTA Chest, A/P 04/16/2021 at [facility] without new findings. * On follow up [...] his right arm. * States spoke to [facility] about getting a endoscopy. Wants to have with minimal sedation. Pain pushes on back as well. [place] Omeprazole did not help. Feels he is having hemorrhoids and problems. Does not want to try other medications since he feels issue is due to a mass in his esophagus. NN-Upmoixptgobbuvwp-Eeqswwq 6 [facility] Work Phone: [phone]) 758-565511-01-2020 History of Present illness Narrative* Follow up of 50 y/o man w/ PMHx HTN, Ascending Aortic Aneurysm, ELIANA, Hyperlipidemia, ? Bipolar, PTSD, P.E. 07/2020, Covid -19 07/2020 for complaint of difficulty swallowing with associated chest discomfort. * At initial visit 02/22/2021, on review of [facility], he had at least 30 local ED visits since January 26, 2021 with all but 5 of those being related to a chest complaint. He had been seen at [facility], [facility], and [facility]. In the [facility] system, he has been seen at their main campus, [facility], and Home. Additionally in that timeframe he has been seen at [facility], [facility], [facility] He has undergone [...] profane abuse of office staff. Admitted to [facility] 04/17/2021 for possible syncope. He apparently had some right-sided chest discomfort and some right arm numbness * Had Esophagram 03/30/2021 at [facility] that was unremarkable without stricture orhiatal hernia. He has also had further repeated CTA imaging with CTA Chest 03/17/2021 at [facility], CTA 04/04/2021 at [facility] and CTA Chest, A/P 04/16/2021 at [facility] without new findings. * On follow up [...] his right arm. * States spoke to [facility] about getting a endoscopy. Wants to have with minimal sedation. Pain pushes on back as well. [place] Omeprazole did not help. Feels he is having hemorrhoids and problems. Does not want to try other medications since he feels issue is due to a mass in his esophagus. [facility] Work Phone: [phone]) 664-321211-01-2020 History of Present illness Narrative* Follow up [...] chest complaint. He had been seen at [facility], [facility], [facility], and [facility]. In the [facility] system, he has been seen at their main campus, [facility], and Home. Additionally in that timeframe he has been seen at [facility], [facility], [facility], and the [facility]. He has undergone at least 3 CTAs [...] profane abuse of office staff. Admitted to [facility] 04/17/2021 for possible syncope. He apparently had some right-sided chest discomfort and some right arm numbness * Had Esophagram 03/30/2021 at [facility] that was unremarkable without stricture orhiatal hernia. He has also had further repeated CTA imaging with CTA Chest 03/17/2021 at [facility], CTA 04/04/2021 at [facility] and CTA Chest, A/P 04/16/2021 at [facility] without new findings. * On follow up [...] his right arm. * States spoke to [facility] about getting a endoscopy. Wants to have with minimal sedation. Pain pushes on back as well. [place] Omeprazole did not help. Feels he is having hemorrhoids and problems. Does not want to try other medications since he feels issue is due to a mass in his esophagus. [facility] Work Phone: Chisp complaint Narrative - ReportedThe patient presents to the office today for an initial evaluation.[facility] [place] [address] Work Phone: chiyh complaint Narrative - ReportedThe patient presents to the office today for an initial evaluation.[facility] Work Phone: clinical Notes [facility] Evaluation + Plan note [facility] Evaluation + Plan note No data available for this section [facility] Evaluation + Plan note Future Appointments Appointment Date:07/15/2024 10:30:00 AM Scheduled Provider:Tima Edwards MD [facility] Appointment Type:BADH New Patient [facility] Evaluation + Plan noteExtracted from: Title:ED Note Author:Neil Alexander DO Date: Anxiety (F41.9: Anxiety diso rder, unspecified) Orders: Consult to Mental Health [facility] Evaluation note* Diagnosis Atypical chest pain- Primary Other chest pain documented in this encounter [employer] Work Phone: evaluation note* Diagnosis Chest pain, unspecified type- Primary documented in this encounter [employer] Work Phone: evaluation note* Diagnosis Dysphagia, unspecified type documented in this encounter [employer] Work Phone: evaluation note* General: Patient is [...] in attention, concentration or language.Insight: fairJudgment: fair [facility] note* Psychological: Appropriate mood and behaviorNeurological: A&O [id number]: no edema x4 extremities, 2+DP/PTGastrointestinal: non-distended, non-tender to palpate, +BSCardiovascular: +S1/S2, no murmur, regular rate/rhythmRespiratory/Thorax: Bilateral lung cruz clear to auscultate posteriorly, no wheezing, rhonchi, or rales.Head/Neck: no JVD with HOB upright at 90Constitutional: alert and aw evelyne, sitting up in bed, no distressSkin: warm and dry [facility]* Diagnosis Essential hypertension Unspecified essential hypertension documented in this encounter [facility]* Diagnosis Acute alcoholic intoxication without complication (HCC)- Primary Hypotension, unspecified hypotension type Dehydration Hypokalemia Hypopotassemia documented in this encounter [facility] Work Phone: evaluation note* Diagnosis Generalized abdominal pain- Primary Abdominal pain, generalized Ascending aortic aneurysm, unspecified whether ruptured (HCC) Abnormal CT scan Other nonspecific (abnormal) findings on radiological and other examinations of body structure documented in this encounter [facility] [employer] Phone: evaluation note* Diagnosis Essential hypertension- Primary Unspecified essential hypertension documented in this encounter [facility] batterii Phone: evaluation noteNo assessment information available [facility] Work Phone: Evaluation note* Diagnosis Dizziness- Primary Dizziness and giddiness documented [facility] encounter [facility]* Diagnosis Other chest pain Palpitations Decreased white blood cell count, unspecified Thrombocytopenia, unspecified (CMS/HCC) Thrombocytopenia, unspecified Disorder of kidney and ureter, unspecified Old myocardial infarction Homelessness unspecified Personal history of other diseases of the circulatory system documented in this encounter [facility] Work Phone: Evaluation note* Diagnosis Onset Date Resolution Status Constipation acute [facility] Work Phone: History of Present illness Narrative* Consult ? Fausto Calixto autoimmune issues or concerns * Refer; Self * his PCP is in [facility] * [facility] * 50 M * Presently in [facility] ER calling from the waiting room! * [...] has a primary care doctor in [facility]. He sees a multitude of physicians in [place]. He states that he travels back and forth. * He seems to have some continuity of care and [place] with providers however he states due to the fact that he has Medicaid he cannot get into see those providers. He states that he keeps his [place] insurance for the aids social worker that are available to him in [place]. 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 It seems to be stable from 2019. He does have what he describes as labile hypertension. He has been taking hismedications with the exception of the amlodipine and the triamterene hydrochlorothiazide. He follows with cardiology at [facility]. Patient had an MRI of the heart [...] In addition to seeking medical attention in [facility] and now [facility] he also states that he is try to get aids social worker in [facility]. He states that he needs 30 days off of work in order to get aids social worker in the [facility]. He has no physical capacity at this time although he has been in and out of the emergency room more than 20 times for various reasons over the last 2 months alone for various release reasons related to chest pain and nonspecific gastrointestinal issues. [facility] [employer] Work Phone: History of Present illness [...] the Osteopathic sports rehabilitation clinic at the [facility] * I noticed muscle imbalances on [...] was greater. * Pre-Treatment Pain Level: 12/31. -[place] [id number] [facility] Work Phone: History of Present illness [...] April of 2021 * He drinks a Kaaawa 45 malt liquor daily * Physical exam [...] the Osteopathic sports rehabilitation clinic at the [facility] * I noticed muscle imbalances on [...] and discomfort and improving muscular endurance * [email or web address]: prescription for exercise rehabilitation provided - specifically: [...] greater. * Pre-Treatment Pain Level: 12/31. Ever [facility]NER[facility] Phone: History of Present illness Narrative* Patient [...] has established with a [facility] at the [facility] but is not currently on any medications. [...] appointment virtually with a vascular surgeon in [place] * His blood pressure today is fairly controlled. Venkatesh ECHEVARRIA [address] Work Phone: History of Present illness NarrativePatient is currently dealing with frequent chest pains, waking up with rapid heartbeat, and anxiety. Patient moved to [place] due to better access to doctors he needs. He is concerned about his Aortic Aneurysm and Thoracic Aneurysm. Patient has autism and has a communication style that sometimes comes off as more aggressive than he realizes. This, according to him, has led to his being dismissed from several medical practices, as well as being thrown out of several Emergency Departments.[facility] [place] [address] [place] Work Phone: History of Present illness NarrativePatient presents as in good spirits, alert and oriented x3. Patient somewhat unsure of senior case manager's role in his care, requesting services that are not aligned with purpose of case management (e.g. coming out with patient to provide outreach to local homeless encampments).[facility] [place] [address] [place] Work Phone: History of Present illness NarrativePatient is currently dealing with frequent chest pains, waking up with rapid heartbeat, and anxiety. Patient moved to [place] due to better access to doctors he needs. He is concerned about his Aortic Aneurysm and Thoracic Aneurysm. Patient has autism and has a communication style that sometimes comes off as more aggressive than he realizes. This, according to him, has led to his being dismissed from several medical practices, as well as being thrown out of several Emergency Departments.[facility] [place] [address] [place] Work Phone: History of Present illness NarrativePatient is open to discussing his care today. Patient is alert and oriented x3.[facility] [address] [place] Work Phone: History of Present illness NarrativePatient presents as concerned and upset about his treatment options. He is alert and oriented x3. [facility] [place] [address] [place] Work Phone: History of Present illness NarrativePatient presents as frustrated and upset about his medical care. Patient is alert and oriented x3.[facility] [place] [address] [place] Work Phone: Hospital course NarrativeLHS [...] Hospital Discharge instructions* Gold Form - Other Clinicians:Business Machine Mechanic/Care Transitions Team Instructions: [facility] assisted, [place] [facility], Provided Medicaid application incase HRS is not able to complete with him [facility] Dis[facility] instructions Activity on Discharge from 03/18/2021 4:28 PM: * Activity Restrictions : Resume Activity as Tolerated Chest Pain/Heart Attack Information from 03/18/2021 4:28 PM: * Has Patient had Chest Pain or an AL during this Visit? : No * It [...] Dr. Ascencio * Discharge Physician Phone: : [phone] * Patient stated Primary Care Provider : Hank Bunch MD ([id number]) - Family Practice * Follow up with [...] sent through Care Everywhere. * Chest Pain (Scottish) documented in this encounter[facility]hillFi.tt Phone: Hospital Discharge instructions* Gold Form - Other Clinicians:Other Clinician Instructions: Please talk with your expressive art therapist to discuss further workup [facility] Dis[facility]* Attachments The following attachments cannot be sent through Care Everywhere. * Hypokalemia (Scottish) * Alcohol Intoxication: Acute (Scottish) [facility] [employer] Work Phone: Hospital Discharge instructions* Attachments The following attachments cannot be sent through Care Everywhere. * Abdominal Pain (Scottish) * Aneurysm: Thoracic Aortic (Scottish) [facility] [employer] Phone: spital Discharge instructions* Attachments The following attachments cannot be sent through Care Everywhere. * Hypertension: General Info (Scottish) [facility] [employer] Phone: Hospital Discharge instructions Additional Instructions Follow-up with your primary care doctor Return to ED for develop worsening symptoms or concernsSelect [facility] [place] Work Phone: Hospital Discharge instructions Additional Instructions You have a 1.7 cm lesion on the right mid kidney that we will need further evaluation please follow-up with your family doctor for further imaging.[facility] Work Phone: Hospital Discharge instructions No data available for this section [facility] Progress note No data available for this section [facility] Summary Purpose Family History No [...] FoundDocuments on File Type Date Recorded Patient Pole Maker Expl 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 * Lightheadedness or Faintness (Scottish) documented in this encounter* Attachments The following attachments cannot be sent through Care Everywhere. * Chest Pain (Scottish) documented in this encounter* Attachments The following attachments cannot be sent through Care Everywhere. * Cough (Scottish) * Hypertension (Scottish) documented in this encounter* Instructions* Howard Ayon, [...] through Care Everywhere. * Hypertension: General Info (Scottish) * Low Sodium Diet (Scottish) * Diet: DASH (Scottish) documented in this encounter* Attachments The following attachments cannot be sent through Care Everywhere. * Hypertension: General Info (Scottish) * Diet: DASH (Scottish) documented in this encounter Chief Complaint New [...] male patient currently inconsistently housed, staying in [place] and [place] with his lady friend. 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 Patient was referred by his primary [...] AM , for a telehealth visit. * Insurance Underwriter spoke with patient on the phone to provide CPST service of symptom monitoring related to hishealth problems. Insurance Underwriter met with patient in the community for initial assessment. This is a 51 year old White male patient currently inconsistently housed, staying in [place] and [place] withhis lady friend. 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 Patient was referred by his primary [...] PM , for a telehealth visit. * Insurance Underwriter met with patient on the phone to [...] PM , for a telehealth visit. * Insurance Underwriter met with patient on the phone to provide TBS service of identifying treatment options. * A telephone visit (audio only) between the patient (at the originating site) and the provider (at the distant site) was utilized to provide this telehealth service. * Verbal consent was requested and obtained from HOSEA ALVAREZ on this date, 11/23/2021 03:00 PM , for a telehealth visit. * Insurance Underwriter spoke with patient on the phone to provide CPST service of symptom monitoring. Reason for Referral Status Reason Specialty Diagnoses / Procedures Referre d By Contact Referred To Contact [facility] Diagnoses Dysphagia, unspecified type Procedures [place] ESOPHAGRAM Will Carter [address] [address] [place] [address] Chief Complaint and Reason for Visit Chief [...] section and content) DATE CREATED AUTHOR 03/11/2018 [facility] DATE CREATED AUTHOR AUTHOR'S ORGANIZ ATION 04/18/2018 [facility] DATE CREATED AUTHOR AUTHOR'S ORGANIZ ATION 03/21/2019 [facility] DATE CREATED AUTHOR AUTHOR'S ORGANIZ ATION 12/15/2019 [facility] DATE CREATED AUTHOR AUTHOR'S ORGANIZ ATION 02/[facility]/2020 [facility] DATE CREATED AUTHOR AUTHOR'S ORGANIZ ATION 02/15/2021 [facility] DATE CREATED AUTHOR AUTHOR'S ORGANIZ ATION 04/02/2021 [facility] DATE CREATED AUTHOR AUTHOR'S ORGANIZ ATION 04/09/2021 [facility] DATE CREATED AUTHOR AUTHOR'S ORGANIZ ATION 06/04/2021 [facility] DATE CREATED AUTHOR AUTHOR'S ORGANIZ ATION 06/14/2021 [facility] DATE CREATED AUTHOR AUTHOR'S ORGANIZ ATION 06/16/2021 [facility] DATE CREATED AUTHOR AUTHOR'S ORGANIZ ATION 08/21/2021 [facility] DATE CREATED AUTHOR AUTHOR'S ORGANIZ ATION 08/24/2021 [facility] DATE CREATED AUTHOR AUTHOR'S ORGANIZ ATION 09/26/2021 [facility] DATE CREATED AUTHOR AUTHOR'S ORGANIZ ATION 11/06/2021 [facility] DATE CREATED AUTHOR AUTHOR'S ORGANIZ ATION 12/01/2021 [facility] DATE CREATED AUTHOR AUTHOR'S ORGANIZ ATION 02/17/2022 [facility] DATE CREATED AUTHOR AUTHOR'S ORGANIZ ATION 02/28/2022 [facility] DATE CREATED AUTHOR AUTHOR'S ORGANIZ ATION 04/10/2022 [facility] DATE CREATED AUTHOR AUTHOR'S ORGANIZ ATION 01/15/2023 [facility] DATE CREATED AUTHOR AUTHOR'S ORGANIZ ATION 01/25/2023 [facility] DATE CREATED AUTHOR AUTHOR'S ORGANIZ ATION 01/31/2023 [facility] DATE CREATED AUTHOR AUTHOR'S ORGANIZ ATION 02/03/2023 [facility] DATE CREATED AUTHOR AUTHOR'S ORGANIZ ATION 02/05/2023 [facility] DATE CREATED AUTHOR AUTHOR'S ORGANIZ ATION 04/23/2023 [facility] DATE CREATED AUTHOR AUTHOR'S ORGANIZ ATION 05/15/2023 [facility] DATE CREATED AUTHOR AUTHOR'S ORGANIZ ATION 05/19/2023 [facility] DATE CREATED AUTHOR AUTHOR'S ORGANIZ ATION 05/29/2023 [facility] DATE CREATED AUTHOR AUTHOR'S ORGANIZ ATION 05/29/2023 [facility] DATE CREATED AUTHOR AUTHOR'S ORGANIZ ATION 06/01/2023 [facility] DATE CREATED AUTHOR AUTHOR'S ORGANIZ ATION 06/06/2023 [facility] DATE CREATED AUTHOR AUTHOR'S ORGANIZ ATION 06/09/2023 [facility] DATE CREATED AUTHOR AUTHOR'S ORGANIZ ATION 06/15/2023 [facility] DATE CREATED AUTHOR AUTHOR'S ORGANIZ ATION 07/07/2023 [place] DATE CREATED AUTHOR AUTHOR'S ORGANIZ ATION 07/13/2024 [facility] DATE CREATED AUTHOR AUTHOR'S ORGANIZ ATION 2024 [facility] DATE CREATED AUTHOR AUTHOR'S ORGANIZ ATION 07/27/[address] [facility] DATE CREATED AUTHOR AUTHOR'S ORGANIZ ATION 07/30/2024 [facility] DATE CREATED AUTHOR AUTHOR'S ORGANIZ ATION 07/31/2024 [facility] DATE CREATED AUTHOR AUTHOR'S ORGANIZ ATION 08/03/2024 [facility] DATE CREATED AUTHOR AUTHOR'S [...] he wa s seen on 01/14 at [facility] for chest and back pressure [...] unspecified Procedures [place] BARIUM SWALLOW Will Carter [address], [address] [place] [address] [facility] [address] [place] [address] Reason Comments Dehydration Was hitch hiking [place]ith [place]. Feels he is dehydrated. Took extra BP med by mistake Reason Comments Abdominal Pain With emesis, left [facility] [facility] and went to [facility] and called EMS Reason Comments Abdominal Pain [...] dose 1423 (Not Given - Pr ovider: Jillian Thurman [...] at [phone] (Given - Provid er: [facility]) PRN Medication Order 01/30/2023 01/31/2023 02/01/2023 iopamidol [...] or prosecute any alcohol or drug abuse patient.[facility] Care Teams (unrecognized sec tion and content) Investigation Manager Relationship Specialty Start Date End Date Viral Amado DO [address] [place] [address] PCP - General Internal Medicine 05/24/21 [place] [address] [place] [address] Referring Cardiology 10/19/21 Team Status: Active Member Role Status Dates NON STAFF Primary Care Provider Active Team Status: Inactive Member Role Status Dates NON STAFF Primary Care Provider Active Severino Singh DO Emergency Provider Active Team Status: Inactive Member Role Status Dates NON STAFF Primary Care Provider Active Bozena Shaw APRN Emergency Provider Active Investigation Manager Relationship Specialty Start Date End Date Kristen Bowman MD [address] [facility] [address] [place] [address] PCP - General Urology 03/08/22 Viral Amado DO [address] [facility] [address] [place] [address] 03/08/22 Team Status: Inactive Member Role Status [...] BE BASED ON THE PRIMARY CLINICAL RECORDS. [facility] [employer] [facility]. provides no warranty or guarantee of the accuracy or completeness of information in this document.
--- NOTE | 2024-08-10 03:22 | ED.ARRPALP1 ---
HPI - Arrhythmia/Palpitations General Chief Complaint: Arrhythmia/Palpitations Stated Complaint: heart palp Time Seen by Provider: 08/10/24 03:17 Source: patient Mode of arrival: walk-in Limitations: no limitations History of Present Illness HPI narrative: patient sitting in the lobby trying to get a ride. Was called and apparently no ride is available. He decided to check back in for his known palpitations. Admits usually after he is not drinking he will fill his heart flutter. He has an upcoming appointment with his PCP to for a holter. He has no other symptoms. Not light headed. No chest pain or dyspnea or nausea he was seem earlier for alcohol intoxication Related Data Home Medications ?Medication ?Instructions ?Recorded ?Confirmed clonidine HCl 0.2 mg tablet 0.2 mg PO DAILY 04/27/23 08/02/24 losartan 25 mg tablet 25 mg PO DAILY 04/27/23 08/02/24 Previous Rx's ?Medication ?Instructions ?Recorded clonidine HCl 0.2 mg tablet 0.2 mg PO DAILY 20 days #20 tabs 08/02/24 dicyclomine 20 mg tablet 20 mg PO QID PRN abdominal pain 08/02/24 #10 tabs losartan 25 mg tablet 25 mg PO DAILY 20 days #20 tabs 08/02/24 metoprolol succinate 25 mg 25 mg PO DAILY 20 days #20 tabs 08/02/24 tablet,extended release 24 hr Allergies Allergy/AdvReac Type Severity Reaction Status Date / Time caffeine AdvReac Intermediate Unknown Verified 08/10/24 03:04 erythromycin base (From AdvReac Intermediate Abdominal Verified 08/10/24 03:04 Erythrocin) Pain polyethylene glycol AdvReac Intermediate Abdominal Verified 08/10/24 03:04 Pain lorazepam (From Ativan) AdvReac Mild Abdominal Verified 08/10/24 03:04 Pain Review of Systems ROS Status of ROS 10 or more systems reviewed and unremarkable except as noted in history and below [facility] Medical History (Updated 08/10/24 @ 03:37 by Kalyan Isbell MD) Thoracic aneurysm without mention of rupture ?I71.20 - Thoracic aortic aneurysm, without rupture, unspecified (ICD-10) Renal cyst ?N28.1 - Cyst of kidney, acquired (ICD-10) Renal artery stenosis ?I70.1 - Atherosclerosis of renal artery (ICD-10) Social History Smoking status: Former smoker Little interest or pleasure in doing things: not at all Feeling down, depressed, or hopeless: not at all Exam Constitutional Vital Signs, click to edit/add: Last Vital Signs Temp 98.2 F 08/10/24 03:01 Pulse 89 08/10/24 03:01 Resp 16 08/10/24 03:01 BP 150/80 H 08/10/24 03:01 Pulse Ox 98 08/10/24 03:01 O2 Del Method Room Air 08/10/24 03:01 Common normals: no apparent distress, average body habitus, oriented x3, no limitations, healthy appearing, alert and well nourished HENPA Common normals: normocephalic and head/scalp atraumatic Eye Common normals: EOMs intact bilaterally and conjunctivae normal Respiratory Common normals: normal respiratory effort, no retractions, no use of accessory muscles and clear to auscultation bilaterally Cardio Common normals: regular rate, regular rhythm, S1 normal heart sound and S2 normal heart sound GI Common normals: Normal to inspection, nondistended, normoactive bowel sounds present, soft to palpation and non-tender Extremity Common normals: normal to inspection and full ROM Neuro Common normals: oriented x3, CN's II-XII intact bilaterally and moves all extremities Psych Appearance: grossly normal Course Vital Signs Vital signs: Vital Signs Temperature 98.2 F 08/10/24 03:01 Pulse Rate 89 08/10/24 03:01 Respiratory Rate 16 08/10/24 03:01 Blood Pressure 150/80 H 08/10/24 03:01 Pulse Oximetry 98 08/10/24 03:01 Oxygen Delivery Method Room Air 08/10/24 03:01 Temperature 98.2 F 08/10/24 03:01 Pulse Rate 89 08/10/24 03:01 Respiratory Rate 16 08/10/24 03:01 Blood Pressure 150/80 H 08/10/24 03:01 Pulse Oximetry 98 08/10/24 03:01 Oxygen Delivery Method Room Air 08/10/24 03:01 MDM - Arrhythmia/Palpitations MDM Narrative Medical decision making narrative: patient presents complaining of sensation of abnormal beat in his chest. States he usually experiences this after he stops drinking. He was seen earlier tonight for alcohol intox and anxiety and labs unremarkable except elevated alcohol level. EKG at this time is normal. BP mildly elevated at 150/80 which is not unusual when someone has been drinking. Patient reassured and discharged home Discharge Plan Discharge Chief Complaint: Arrhythmia/Palpitations Clinical Impression: Palpitations Patient Disposition: Home, Self-Care Prescriptions / Home Meds: No Action losartan 25 mg tablet 25 mg PO DAILY clonidine HCl 0.2 mg tablet 0.2 mg PO DAILY losartan 25 mg tablet 25 mg PO DAILY 20 Days Qty: 20 0RF metoprolol succinate 25 mg tablet extended release 24 hr 25 mg PO DAILY 20 Days Qty: 20 0RF clonidine HCl 0.2 mg tablet 0.2 mg PO DAILY 20 Days Qty: 20 0RF dicyclomine 20 mg tablet 20 mg PO QID PRN (Reason: abdominal pain) Qty: 10 0RF Print Language: Gibraltarian Instructions: Heart Palpitations (ED) Referrals: Physician,Non-Staff, MD [Primary Care Provider] - 1 week
--- NOTE | 2024-08-10 03:26 | ECG_ITS ---
[facility] Test Date: 2024-08-10 Pat Name: CHARLES MILLS Department: Room: - Gender: Male [employer] Helper: : 1970 Requested By: [id number] Order Number: [id number] Reading MD: HEATHER ALVES Measurements Intervals Anabel Rate: 85 P: 40 IA: 164 QRS: -26 QRSD: 94 T: 25 QT: 346 QTc: 388 Interpretive Statements 1100 Sinus rhythm 7202 Moderate left axis deviation 9110 normal ECG Compared to ECG 08/02/2024 06:59:18 Left-axis deviation now present Possible ischemia no longer present Electronically Signed On 08-10-2024 6:53:51 EST by HEATHER ALVES
[2024-08-10 04:05] VITALS: BP 133/72
== END 2024-08-10 04:05 | disposition home or self-care (01) ==
PROVIDERS: Emergency Provider Internal Medicine
DX: R00.2 Palpitations (principal); Z87.891 Personal history of nicotine dependence
CPT/HCPCS: 93005; 99283